=== PATIENT | female | born 1970 | race American Indian/Alaskan Native ===

== ENCOUNTER 2016-08-27 13:55 | Inpatient (IN) | payer MEDICARE, MEDICAID ==
--- NOTE | 2016-08-27 14:30 | ED PDOC ---
Lower Extremity Pain/Injury Time Seen by Provider: 08/27/16 14:09 Chief Complaint (Nursing): Lower Extremity Problem/Injury Chief Complaint (Provider): Right Calf Pain/Swelling History Per: Patient History/Exam Limitations: no limitations Onset/Duration Of Symptoms: Hrs (since this morning) Current Symptoms Are (Timing): Still Present Severity: Moderate Additional Complaint(s): Lizzeth Leo is a 46 year old female, with a past medical history inclusive of HTN, hypercholesterolemia, coagulopathy, diabetes, ESRD (on dialysis) and PVD (s/p left BKA and finger amputations x10), who presents to the ED on , as referred by her PMD, for the evaluation of moderate right calf pain/ swelling that she has experienced since this morning. Associated fever and chills also reported, both of which have been present since yesterday, though she denies chest pain or shortness of breath. PMD: Rakel Thomas Past Medical History Reviewed: Historical Data, Nursing Documentation, Vital Signs Vital Signs: Last Vital Signs Temp 103.7 F H 08/27/16 14:02 Pulse 142 H 08/27/16 14:02 Resp 16 08/27/16 14:02 BP 123/70 08/27/16 14:02 Pulse Ox 98 08/27/16 14:02 - Medical History PMH: Anemia, Diabetes, HTN, Hypercholesterolemia, End Stage Renal Disease, Chronic Kidney Disease Denies: Kidney Stones Other PMH: PVD, cataracts, osteomyelitis - Surgical History Other surgeries: left BKA, finger amputations x10, AV shunt - Family History Family History: States: Unknown Family Hx - Immunization History Hx Tetanus Toxoid Vaccination: Yes Hx Influenza Vaccination: Yes Hx Pneumococcal Vaccination: Yes - Home Medications Home Medications: Ambulatory Orders Medication Instructions Recorded Apixaban [Eliquis] 5 mg PO BID 05/21/16 Aspirin [Ecotrin] 81 mg PO DAILY 05/21/16 Atorvastatin [Lipitor] 40 mg PO HS 05/21/16 Gabapentin [Neurontin] 200 mg PO BID 05/21/16 Insulin Aspart, Recombinant 13 unit SC ACTID 05/21/16 [Novolog] Insulin Detemir [Levemir] 32 unit SC HS 05/21/16 Sevelamer Carbonate [Renvela] 2,400 mg PO TID 05/21/16 - Allergies Allergies/Adverse Reactions: Allergies Allergy/AdvReac Type Severity Reaction Status Date / Time heparin Allergy Severe ANAPHYLAXIS Verified 08/27/16 14:01 Beta-Blockers Allergy ANAPHYLAXIS Verified 08/27/16 14:01 (Beta-Adrenergic Bloc Review of Systems ROS Statement: Except As Marked, All Systems Reviewed And Found Negative Constitutional: Positive for: Fever, Chills Cardiovascular: Negative for: Chest Pain Respiratory: Negative for: Shortness of Breath Musculoskeletal: Positive for: Leg Pain (right calf pain/swelling) Physical Exam - Reviewed Nursing Documentation Reviewed: Yes Vital Signs Reviewed: Yes - Physical Exam Appears: Positive for: Non-toxic, No Acute Distress Head Exam: Positive for: ATRAUMATIC, NORMOCEPHALIC Skin: Positive for: Normal Color, Warm, Dry Eye Exam: Positive for: Normal appearance, PERRL ENT: Positive for: Normal ENT Inspection. Negative for: Pharyngeal Erythema, Tonsillar Exudate, Tonsillar Swelling Neck: Positive for: Normal, Painless ROM, Supple Cardiovascular/Chest: Positive for: Regular Rate, Rhythm. Negative for: Murmur Respiratory: Positive for: Normal Breath Sounds. Negative for: Respiratory Distress Gastrointestinal/Abdominal: Positive for: Normal Exam, Soft. Negative for: Tenderness Back: Positive for: Normal Inspection Extremity: Positive for: Calf Tenderness (right), Swelling (RLE), Other (ulcer w /eschar noted to right heel; left BKA, amputations of all fingers on b/l hands) Neurologic/Psych: Positive for: Alert, Oriented - ECG O2 Sat by Pulse Oximetry: 98 (RA) Pulse Ox Interpretation: Normal - Radiology X-Ray: Viewed By Me, Read By Radiologist X-Ray Interpretation: Other (Right-sided central venous catheter. Mild central vascular and mild pulmonary venous congestion.) Medical Decision Making Medical Decision Makin:09 Initial Impression: right calf pain/swelling; will r/o DVT Initial Plan: * Duplex LE Vein, Right * CXR * VBG Shock Panel * Labs * Udip * Blood Culture * Insertion of PICC Bundle * Morphine 2mg IM * Reevaluation 14:44 Patient is febrile with temperature of 103.7F, will order administration of Tylenol 975mg PO. 15:26 CXR report reviewed: FINDINGS: Examination limited by habitus. Right-sided central venous catheter. LUNGS: Mild central vascular mild pulmonary venous congestion. No definite pneumothorax. Please note that chest x-ray has limited sensitivity for the detection of pulmonary masses. PLEURA: No significant pleural effusion identified. No definite pneumothorax . CARDIOVASCULAR: The cardiomediastinal silhouette appears within normal limits of size. OSSEOUS STRUCTURES: No acute osseous abnormality identified. VISUALIZED UPPER ABDOMEN: Unremarkable. OTHER FINDINGS: Vascular stents. IMPRESSION: Right-sided central venous catheter. Mild central vascular and mild pulmonary venous congestion. Scribe Attestation: Documented by Mesha Salmon, acting as a scribe for Earl Rivas MD. Provider Scribe Attestation: All medical record entries made by the Scribe were at my direction and personally dictated by me. I have reviewed the chart and agree that the record accurately reflects my personal performance of the history, physical exam, medical decision making, and the department course for this patient. I have also personally directed, reviewed, and agree with the discharge instructions and disposition. Disposition - Clinical Impression Clinical Impression: Cellulitis of lower extremity, Diabetes, ESRD (end stage renal disease) - Patient ED Disposition Is Patient to be Admitted: Yes - Disposition Disposition Time: 16:42 Condition: FAIR - Pt Status Changed To: Hospital Disposition Of: Inpatient - Admit Certification Admit to Inpatient:: After my assessment, the patient will require hospitalization for at least two midnights. This is because of the severity of symptoms shown, intensity of services needed, and/or the medical risk in this patient being treated as an outpatient. - POA Present On Arrival: Pressure Ulcer (right heel)
--- NOTE | 2016-08-27 14:36 | CP.PCM.CON ---
History of Present Illness - History of Present Illness History of Present Illness: PODIATRY CONSULT NOTE FOR DR. PRUETT: 46 yo female patient seen in ED today following referral from Dr. Pruett for evaluation of new onset right calf pain and redness. Per patient she began developing pain to the right leg this morning, with associated chills and fever since yesterday. Is also complaining of lower back pain. Denies n/v/sob/cp. Says she sees Dr. Pruett weekly for the right heel ulceration. Says she takes eliquis daily. Denies any other pedal complaints at this time. PMHx: HTN, ESRD (on dialysis), coagulopathy, DM, charcot root (right) PVD ALL: heparin, beta-blockers Meds: see [facility] Surg Hx: left BKA, finger amputations x 10 Soc. Hx: denies ETOH, denies smoking, denies illicit drug use PMD: Rakel Thomas Review of Systems - Review of Systems Review of Systems: All systems reviewed and found to be negative with exception of pertinent HPI findings above Past Patient History - Past Medical History & Family History Past Medical History?: Yes - Past Social History Smoking Status: Never Smoked - CARDIAC Hx Hypercholesterolemia: Yes Hx Hypertension: Yes - PULMONARY Hx Respiratory Disorders: No - NEUROLOGICAL Hx Neurological Disorder: No - HEENT Hx HEENT Problems: Yes Hx Cataracts: Yes Other/Comment: eye disease - RENAL Hx Chronic Kidney Disease: Yes Hx Kidney Stones: No - ENDOCRINE/METABOLIC Hx Endocrine Disorders: Yes Hx Diabetes Mellitus Type 1: Yes (type I) - HEMATOLOGICAL/ONCOLOGICAL Hx Anemia: Yes - INTEGUMENTARY Hx Dermatological Problems: No - MUSCULOSKELETAL/RHEUMATOLOGICAL Hx Falls: No - GASTROINTESTINAL Hx Gastrointestinal Disorders: No Other/Comment: hx of anal fissure - GENITOURINARY/GYNECOLOGICAL Hx Genitourinary Disorders: No Other/Comment: menarchy at 14 y/o, q m x4d - PSYCHIATRIC Hx Substance Use: No - SURGICAL HISTORY Hx Surgeries: Yes (see Hx and PE) Hx Amputation: Yes Hx Arteriovenous Shunt: Yes Other/Comment: INSERTION OF DIALYSIS CATH;CATARACT-BOTH EYES;LEFT BELOW KNEE AMPUTATION;2ND TOE RIGHT FOOT AMPUTATION; RIGHT ANKLE SURGERY - ANESTHESIA Hx Anesthesia: Yes Hx Anesthesia Reactions: No Hx Malignant Hyperthermia: No Meds Allergies/Adverse Reactions: Allergies Allergy/AdvReac Type Severity Reaction Status Date / Time heparin Allergy Severe ANAPHYLAXIS Verified 08/27/16 14:01 Beta-Blockers Allergy ANAPHYLAXIS Verified 08/27/16 14:01 (Beta-Adrenergic Bloc Physical Exam - Constitutional Appears: Non-toxic, No Acute Distress - Extremities Exam Additional comments: Right lower extremity exam: VASC- DP pulse is palpable (1/4), PT pulse non-palp, skin temp runs warm to warm , capillary refill < 5 sec to digits x 5, moderate 2+ pitting edema noted to anterior aspect of leg and dorsum of foot NEURO-gross pedal sensation is diminished DERM- superficial eschar noted to plantar aspect of heel, slight serous drainage , no purulence, no probe to bone, no undermining, no malodor, no surrounding erythema ORTHO- tenderness noted to deep palpation of calf/posterior leg, patient able to flex and extend all digits, severe varus deformity of ankle noted - Neurological Exam Neurological exam: Alert, CN II-XII Intact, Oriented x3 - Psychiatric Exam Psychiatric exam: Normal Affect, Normal Mood Results - Vital Signs Recent Vital Signs: Last Vital Signs Temp 103.7 F H 08/27/16 14:02 Pulse 142 H 08/27/16 14:02 Resp 16 08/27/16 14:02 BP 123/70 08/27/16 14:02 Pulse Ox 98 08/27/16 14:33 Assessment & Plan - Assessment and Plan (Free Text) Assessment: 46 yo female patient w/ pmhx of HTN, ESRD (on dialysis), coagulopathy, DM, charcot root (right) PVD w/ right calf pain/swelling Plan: --Pt seen and evaluated in ED --Discussed plan with attending Dr. Pruett and Dr. Rivas --Chart,vitals reviewed: febrile 103.7, tachy 142 --CXR: right-sided central venous catheter. Mild central vascular and mild pulmonary venous congestion. --Venous duplex US (RLE): negative for DVT --Right foot x-ray: diffuse soft tissue swelling, severe neuropathic tiffanie changes --For PICC (poor venous access) --f/u CBC, BMP, Udip, Blood cx --ID consulted (Dr. Greenberg), f/u recs --Morphine 2mg IM STAT per ED --Tylenol for fever per ED --Pt will be admitted to hospital for IV antibiotics --Santyl ordered, will apply with AM dressing change tomorrow --Multipodus boot ordered for right foot (to wear at all times while in bed) --Podiatry will continue to monitor closely.
--- NOTE | 2016-08-27 15:28 | RAD ---
HISTORY: cough COMPARISON: Chest x-ray performed 03/26/16 TECHNIQUE: Chest, one view. FINDINGS: Examination limited by habitus. Right-sided central venous catheter. LUNGS: Mild central vascular mild pulmonary venous congestion. No definite pneumothorax. Please note that chest x-ray has limited sensitivity for the detection of pulmonary masses. PLEURA: No significant pleural effusion identified. No definite pneumothorax . CARDIOVASCULAR: The cardiomediastinal silhouette appears within normal limits of size. OSSEOUS STRUCTURES: No acute osseous abnormality identified. VISUALIZED UPPER ABDOMEN: Unremarkable. OTHER FINDINGS: Vascular stents. IMPRESSION: Right-sided central venous catheter. Mild central vascular and mild pulmonary venous congestion.
[2016-08-27] MEDS ORDERED: Lidocaine 1% Inj (20ml) ONE (16:14)
--- NOTE | 2016-08-27 16:48 | US ---
PROCEDURE: Right lower extremity duplex venous sonography. HISTORY: r/o DVT right calf pain COMPARISON: None TECHNIQUE: Real-time ultrasound scan of the veins with color flow, spectral waveform analysis and compression FINDINGS: Right lower extremity: Normal flow, augmentation and compressibility were noted. No evidence of deep vein thrombosis. Incidental finding(s): Dialysis port identified right common femoral vein without evidence of associated/acute deep vein thrombosis. Enlarged right inguinal lymph node 2.5 x 2.9 cm. IMPRESSION: Negative study right lower extremity for acute deep vein thrombosis.
--- NOTE | 2016-08-27 16:50 | RAD ---
PROCEDURE: Right Foot Radiographs. HISTORY: right heel ulcer COMPARISON: None. FINDINGS: BONES: Evidence of severe neuropathic foot/ Charcot joint. No acute fracture. JOINTS: Neuropathic joints/ Charcot deformity noted. Multiple hammertoe deformities noted. SOFT TISSUES: Diffuse soft tissue swelling. Air in soft tissues plantar aspect likely deep ulcer. The may be additional ulcers medial aspect of the foot. OTHER FINDINGS: None. IMPRESSION: Soft tissue swelling without acute articular or osseous abnormality.
--- NOTE | 2016-08-27 17:14 | PCM.SURG1 ---
Surgeon's Initial Post Op Note - Surgeon's Notes Surgeon: Umang Pompom Maker: None Type of Anesthesia: Local Pre-Operative Diagnosis: Poor IV access. Fever. Operative Findings: Multiple venous collaterals. Patent right brachial vein. Post-Operative Diagnosis: Poor IV access, Fever. Operation Performed: Right brachial vein 4F SL 30cm PICC placed with the tip in the right axillary vein. Specimen/Specimens Removed: None Estimated Blood Loss: EBL {In ML}: 5 Date of Surgery/Procedure: 08/27/16 Time of Surgery/Procedure: 17:10
[2016-08-27] MEDS ORDERED: Vancomycin 1 g Inj ONE (17:21)
[2016-08-27 17:47] LABS: VENOUS BLOOD GAS BASE EXCESS 2.4 mmol/L (0.0-2.0); VENOUS BLOOD GAS PCO2 42 mmHg (40-60); VENOUS BLOOD PH 7.42 (7.32-7.43)
[2016-08-27 18:02] LABS: BASO # 0.1 K/uL (0.0-0.2); BASO % 0.8 % (0.0-2.0); HEMATOCRIT 36.2 % (34.0-47.0); LYMPH # 0.5 K/uL (1.0-4.3); MEAN CORPUSCULAR HEMOGLOBIN 29.8 pg (27.0-31.0); MEAN CORPUSCULAR HGB CONC 31.3 g/dL (33.0-37.0); MEAN PLATELET VOLUME 10.2 fl (7.2-11.7); MONO # 0.7 K/uL (0.0-0.8); MONO % 6.3 % (0.0-10.0); NEUT # 9.7 K/uL (1.8-7.0); NEUT % 87.9 % (50.0-75.0); PLATELET COUNT 135 K/uL (130-400); RED CELL DISTRIBUTION WIDTH 20.5 % (11.5-14.5)
--- NOTE | 2016-08-27 18:39 | CP.PCM.PN ---
Subjective - Date & Time of Evaluation Date of Evaluation: 08/27/16 Time of Evaluation: 18:38 - Subjective Subjective: I D NOTE HAVE REVIEWED PREVIOUS CULTURES PATIENT WELL KNOWN TO ME STARTED ZOSYN/ZYVOX Objective - Vital Signs/Intake and Output Vital Signs (last 24 hours): Temp Pulse Resp BP Pulse Ox 100.5 F H 92 H 22 141/77 97 08/27/16 18:09 08/27/16 18:09 08/27/16 18:09 08/27/16 18:09 08/27/16 17:55 - Medications Medications: Current Medications Collagenase (Santyl) 1 applic TOP DAILY JASPER - Labs Labs: 08/27/16 17:45
[2016-08-27 18:57] LABS: ALB/GLOB RATIO 0.8 (1.0-2.1); BILIRUBIN,TOTAL 1.3 mg/dl (0.2-1.3); CALCIUM 9.2 mg/dL (8.4-10.2); TOTAL PROTEIN 8.5 G/DL (6.3-8.2)
[2016-08-27] MEDS ORDERED: Naloxone 0.4 mg/ml Inj (Adult) ONE (19:10)
[2016-08-27] MEDS ORDERED: Insulin Regular 100 units/ml ONE (19:35)
--- NOTE | 2016-08-27 19:35 | CP.PCM.HP ---
History of Present Illness - History of Present Illness History of Present Illness: 46 year old gentlewoman with a complex history was receiving wound care for a right heel ulcer when Dr. Resendez noted a fever of 102 degrees and a swollen, tender right calf. She was sent to the ER, where doppler-ultrasound ruled out deep vein thrombosis and cellulitis of the right lower leg was diagnosed. A PICC line was inserted by Dr. Heck in the right upper arm because of poor venous access. Blood cultures were obtained. A culturette swab was taken of the right heel ulcer. She received 1 gm of IV Vancomycin. Subsequently she was seen in infectious disease consultation by Dr. Levon Lemon, who ordered IV Zosyn and IV Zyvox. She was seen by the podiatry team, snd Santyl was ordered for the right heel. They will be following her in hospital. The patient has a complex past history which includes the following: End stage renal disease - on hemodialysis via a right subclavian Permacath - under the care of cray fishing hand Dr. Alta Guadarrama. 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 Because of this previous A-V fistulae have clotted resulting in loss of 3 fingers of the left hand and 1 finger of the right hand and her entire left lower leg. She has been evaluated by Dr. Evita Shepard, [employer] and is currently on Eliquis and aspirin. She may not have heparin or low-dose heparing as this actually induces clotting. Diabetes mellitus - II - insulin dependent. followed by Dr. Richard Ambrose, awning maker and installer. She has been maintained on Humalog 12 units 3x/day before meals and Levemir 35 units at bedtime. Today her glucose was around 600. She was just given 20 units of regular insulin. She tests her glucoses via her arms since fingersticks are prohibited. Hx of Anemia due to heavy menses (previously evaluated by Dr. Larry). Hx of Peripheral arterial disease secondary to hypertension, renal disease ( calcification of arteries), hyperlipidemia and coagulopathy. Beta-blockers are to be avoided. Hx of Hypertension HOME MEDICATIONS: Eliquis 5mg po bid Aspirin-EC 81mg i qd Atorvastatin 40mg i qd Gabapentin 100mg ii bid for neuropathic pain Nephrovite i qd Renagel 800g tid Humalog Quikpen 12 units subcut. tid ac Levemir 35 units subcut q hs Tyleonol-ES (500mg) ii tabs q4h prn pain (max 8 tabs per day) Docusate 100mg ii tabs bid prn [place] S 3 tabs hs prn constipation Lisinopril 5mg i daily (hold for low bp) ALLERGIES/ADVERSE REACTIONS: HEPARIN CAUSES CLOTTING. BETA-BLOCKERS CAUSE VASOCONSTRICTION DIET: 2gm sodium, 2 gm potassium renal ROS: Pain in right lower leg and back. No chest pain or dyspnea. SOCIAL: Single, no children, on disability. Lives with a family member ( nephew), but cares for herself and uses motorized wheelchair. Mother is Sandra Leo [phone] FRANCA POLK: WHEN PATIENT WAS GIVEN 2 MG OF DILAUDID IV FOR COMPLAINT OF SEVERE BACK PAIN, SHE BECAME OVERSEDATED AND BRADYPNEIC AND DROPPED HER OXYGEN SATURATION TO 64%. IV NARCAN WAS ADMINISTERED AND SHE BECAME MORE ALERT. OXYGEN BY MASK WAS STARTED AND THE OXYGEN SATURATION WENT BACK UP TO 100%. Present on Admission - Present on Admission Any Indicators Present on Admission: Yes History of DVT/PE: No History of Uncontrolled Diabetes: Yes Urinary Catheter: No - Notes: Notes:: Ulceration right heel approx 3 x 3 cm. with eschar. Review of Systems - Review of Systems All systems: reviewed and no additional remarkable complaints except - Constitutional Additional comments: back and leg pain as noted in HPI. No dyspnea or chest pain. No headache. No visual disturbance. No abdominal pain. Bowels OK. Does not make urine. Past Patient History - Past Medical History & Family History Past Medical History?: Yes - Past Social History Smoking Status: Never Smoked Alcohol: None Drugs: Denies Home Situation {Lives}: With Family Domestic Violence: Negative - CARDIAC Hx Hypercholesterolemia: Yes Hx Hypertension: Yes Hx Peripheral Vascular Disease: Yes - PULMONARY Hx Respiratory Disorders: No - NEUROLOGICAL Hx Neurological Disorder: No - HEENT Hx HEENT Problems: No - RENAL Hx Chronic Kidney Disease: Yes Hx Dialysis: Yes Type of Dialysis Access: Right subclavian Permacath. Date of Last Dialysis Treatment: 08/26/16 - ENDOCRINE/METABOLIC Hx Endocrine Disorders: Yes Hx Diabetes Mellitus Type 2: Yes - HEMATOLOGICAL/ONCOLOGICAL Hx Blood Disorders: Yes (THROMBOPHILIA - Heparin Ab's, Protein C & S deficiencies.) Hx Anemia: Yes Hx Blood Transfusions: Yes Hx Blood Transfusion Reaction: No Hx Hepatitis B: No Hx Hepatitis C: No Hx Human Immunodeficiency Virus (HIV): No - INTEGUMENTARY Hx Dermatological Problems: No - MUSCULOSKELETAL/RHEUMATOLOGICAL Hx Musculoskeletal Disorders: Yes (Charcot joint right ankle) Hx Back Pain: Yes Hx Falls: No Hx Osteomyelitis: Yes (R middle finger due to paronychial infection 2016) - GASTROINTESTINAL Hx Gastrointestinal Disorders: No Other/Comment: hx of anal fissure - GENITOURINARY/GYNECOLOGICAL Hx Genitourinary Disorders: No Other/Comment: Menorrhagia : 0 - PSYCHIATRIC Hx Substance Use: No - SURGICAL HISTORY Hx Surgeries: Yes (see Hx and PE) Hx Amputation: Yes Hx Arteriovenous Shunt: Yes (No more sites available. All previously failed.) Hx Vascular Access Device: Yes (R subclavian Permacath) Other/Comment: INSERTION OF DIALYSIS CATH;CATARACT-BOTH EYES;LEFT BELOW KNEE AMPUTATION;2ND TOE RIGHT FOOT AMPUTATION; RIGHT ANKLE SURGERY - ANESTHESIA Hx Anesthesia: Yes Hx Anesthesia Reactions: No Hx Malignant Hyperthermia: No Meds Allergies/Adverse Reactions: Allergies Allergy/AdvReac Type Severity Reaction Status Date / Time heparin Allergy Severe ANAPHYLAXIS Verified 08/27/16 14:01 Beta-Blockers Allergy ANAPHYLAXIS Verified 08/27/16 14:01 (Beta-Adrenergic Bloc Physical Exam - Constitutional Appears: Toxic - Head Exam Head Exam: NORMAL INSPECTION - ENT Exam ENT Exam: Mucous Membranes Moist, Normal Exam, Normal External Ear Exam, Normal Oropharynx, TM's Normal Bilaterally - Neck Exam Neck exam: Positive for: Full Rom, Normal Inspection Additional comments: Right subclavian Permacath intact. - Respiratory Exam Respiratory Exam: Clear to Auscultation Bilateral, NORMAL BREATHING PATTERN - Cardiovascular Exam Cardiovascular Exam: Tachycardia, REGULAR RHYTHM, +S1, +S2 - GI/Abdominal Exam GI & Abdominal Exam: Normal Bowel Sounds, Soft - Rectal Exam Rectal Exam: Deferred - Extremities Exam Additional comments: Right lower leg/calf with swelling, erythema, tenderness. Pulse present right DP. Right ankle joint with marked deformity and ligamentous laxity. Ulcer on right heel approx 3 x 3 cm., covered by eschar. S/P left BK amputation. Residual limb warm and non-tender. with no lesions. RUE - s/p amputation 3rd finger - well healed - Weak radial pulse LUE - s/p amputation of 2nd, 3rd, 4th fingers - well healed - weak radial pulse. PICC line right upper arm. - Back Exam Back exam: muscle spasm, NORMAL INSPECTION - Neurological Exam Neurological exam: Abnormal Gait, Alert, CN II-XII Intact, Oriented x3 Additional comments: Has right [id number] leg brace. Has left BK prosthesis. - Psychiatric Exam Psychiatric exam: Normal Affect, Normal Mood - Skin Additional comments: See extremities for heel ulcer. - Additional Findings Additional findings: BREASTS - No masses and no axillary nodes. Results - Vital Signs Recent Vital Signs: Last Vital Signs Temp 100.5 F H 08/27/16 18:09 Pulse 92 H 08/27/16 18:09 Resp 22 08/27/16 18:09 BP 141/77 08/27/16 18:09 Pulse Ox 97 08/27/16 17:55 - Labs Result Diagrams: 08/27/16 17:45 08/27/16 18:40 Labs: Laboratory Results - last 24 hr 08/27/16 08/27/16 08/27/16 17:40 17:45 18:40 WBC 11.0 H RBC 3.81 Hgb 11.3 L D Hct 36.2 MCV 95.0 MCH 29.8 MCHC 31.3 L RDW 20.5 H Plt Count 135 MPV 10.2 Neut % (Auto) 87.9 H Lymph % (Auto) 5.0 L [place] % (Auto) 6.3 Eos % (Auto) 0.0 Baso % (Auto) 0.8 Neut # 9.7 H Lymph # 0.5 L [place] # 0.7 Eos # 0.0 Baso # 0.1 pO2 14 L VBG pH 7.42 VBG pCO2 42 VBG HCO3 24.8 VBG Total CO2 28.5 H VBG O2 Sat (Calc) 18.0 L VBG Base Excess 2.4 H VBG Potassium 5.0 Sodium 131.0 L 135 Chloride 91.0 L 89 L Glucose 449 H* Lactate 2.8 H FiO2 21.0 Crit Value Called To Dr stewart johnson Crit Value Called By Mike Crit Value Read Back Y Blood Gas Notified Time 1746 Potassium 5.0 Carbon Dioxide 20 L Anion Gap 31 H BUN 40 H Creatinine 7.5 H* Est GFR ( Amer) 7 Est GFR (Non-Af Amer) 6 Random Glucose 595 H* D Calcium 9.2 Total Bilirubin 1.3 AST 21 ALT 9 D Alkaline Phosphatase 180 H Total Protein 8.5 H Albumin 3.7 Globulin 4.8 H Albumin/Globulin Ratio 0.8 L Venous Blood Potassium 5.0 - Imaging and Cardiology Venous US Status: Report reviewed by me Right foot Status: Report reviewed by me Assessment & Plan (1) Cellulitis of leg Assessment and Plan: Blood and right heel ulcer cultures done. Given IV Vancomycin 1 gm one dose, then started on IV Zyvox and IV Zosyn by Dr. Lemon. Status: Acute (2) DM type 2 (diabetes mellitus, type 2) Assessment and Plan: Dr. Gallito Ambrose awning maker and installer will manage this. Status: Chronic (3) Coagulopathy Assessment and Plan: Thrombophilia due to Protei C and S deficiencies and anti-heparin antibodies. Will continue Eliquis and aspirin. Heparin is contraindicated. Status: Chronic (4) ESRD (end stage renal disease) on dialysis Assessment and Plan: Management by Dr. Alta Guadarrama. Due for hemodialysis tomorrow. Renal diet 2 gm sodium and 2 gm potassium. Status: Chronic (5) HTN (hypertension) Assessment and Plan: Monitor blood pressure. Hold lisinopril for now. Status: Chronic (6) Hyperlipidemia Assessment and Plan: Continue atorvastatin. Status: Acute (7) Peripheral arterial occlusive disease Assessment and Plan: Multifactorial. Will avoid beta-blockers, keep hydrated, manage diabetes. No fingersticks. Status: Acute (8) Ulcer of right heel Assessment and Plan: To continue care under Dr. Resendez's direction. He would like to do a surgical debridement of the eschar in the OR once she is stabilized so as to allow for faster healing. Status: Acute (9) Tachycardia Assessment and Plan: Probably due to fever, stress, but will get ECG and monitor this. Status: Acute
[2016-08-27 19:36] LABS: NEUTROPHIL 83 % (42-75); TOTAL CELLS COUNTED 100
[2016-08-27] MEDS ORDERED: Insulin Regular 100 units/ml IV ONE (19:50)
[2016-08-27] MEDS: Sodium Chloride 0.9% 1,000 ML IV SCH (19:53)
[2016-08-27] MEDS ORDERED: Naloxone 0.4 mg/ml Inj (Adult) IVP ONE (19:57)
[2016-08-27] MEDS ORDERED: Insulin Detemir 100 Units/ml Inj SC SCH (22:00)
[2016-08-28] MEDS ORDERED: Docusate-Senna 50 mg-8.6 mg Tab PO PRN (00:07)
[2016-08-28] MEDS: Linezolid 600 mg in D5W 300 ml 300 ML IVPB SCH ×3 (00:17→20:48)
--- NOTE | 2016-08-28 02:37 | CON ---
DATE: 08/27/2016 ROOM: 407. HISTORY OF PRESENT ILLNESS: This is a 46-year-old female with known history of type 2 insulin-requir ing diabetes, now admitted for right leg cellulitis with underlying nonhealing right heel ulceration and is being referred now for diabetic evaluation because of marked hyperglycemic accelerations as no minal thereof. PAST MEDICAL HISTORY: As mentioned above, history of type 2 insulin-requiring diabetes on a combinat ion of Levemir given as 32 units subQ at bedtime daily with Humalog given as 30 units subQ t.i.d. bef ore meals as ordered. History of diabetic retinopathy, polyneuropathy with a right Charcot's foot wi th diabetic nephropathy with end-stage renal disease and, concurrently, dialysis dependence. History of coronary artery disease and peripheral arterial disease and vasculopathy with a previous left bel ow-knee amputation and multiple amputations in the upper extremities, three of which in the left hand and one in the right hand. She has also known history of coronary artery disease and severe periphe ral arterial disease and vasculopathy as noted. She has had multiple admissions for gangrene in both hands, especially in the distal phalanges of the left hand. 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 Gordon. FAMILY HISTORY: Positive for diabetes and hypertension. SOCIAL HISTORY: The patient has supportive family. No known substance use. REVIEW OF SYSTEMS: As mentioned above, admits to generalized body weakness with easy fatigability an d tiredness and suboptimal energy level. Also admits to dizziness and lightheadedness, worse in the last few days prior to admission. No chest pains or palpitations or PNDs. His oral intake is quite variable with nausea, dyspepsia, and vague upper abdominal pain. Also, admits to habitual constipati on. As mentioned above, admits to recent onset of tenderness and pain in the right calf area with un derlying cellulitis. PHYSICAL EXAMINATION: GENERAL: The patient is a morbidly obese female in no apparent distress. VITAL SIGNS: Blood pressure of 160/100, pulse of 80 beats per minute and regular, temperature 102, r espirations 20. Height is 5 feet 9, weight is 245 pounds. HEENT: Head normocephalic. Eyes anicteric with pink conjunctivae. Fundoscopy not possible at this time. Ears, nose and throat otherwise normal. NECK: Supple. Thyroid gland is normal size. No carotid bruits or any cervical adenopathy. CARDIOPULMONARY: Some adynamic precordium. S1, S2 is rapid and regular. LUNGS: Show scattered rhonchi. ABDOMEN: Obese, soft with positive bowel sounds. EXTREMITIES: There is erythema and tenderness in the calf area of the right leg with diminished puls es in dorsalis pedis and anterior tibial area. The left below-knee amputation stump is healed as not ed. LABORATORY DATA: WBC 11.0, hemoglobin of 11.3, hematocrit of 36, MCV 95, platelets 135, chemistries showed a BUN of 40, sodium 135, potassium 5.0, chloride 89, CO2 20, glucose 595 and creatinine 7.5. Her subsequent glucose levels were 363 mg/dL. ASSESSMENT: This is a 46-year-old female with uncontrolled and decompensated type 2 insulin-requirin g diabetes, presenting here with marked hyperglycemic accelerations and intercurrent right leg cellul itis with an underlying neuropathic heel ulceration in the same foot as noted. There are also diabet ic microvascular complications of retinopathy, polyneuropathy, and nephropathy with end-stage renal d isease and dialysis dependence. She also has diabetic macrovascular complications of coronary artery disease and peripheral arterial disease and vasculopathy. She also has had previous left below-knee amputation and currently presenting with a right leg cellulitis as noted. PLAN OF MANAGEMENT: As discussed with the patient and the staff, we will start her right away on the basal and bolus insulin regimen, which is more physiologic in terms of long-term diabetic management . We will start her with Levemir given as 24 units subQ at bedtime daily to start tonight. We will also add Humalog given as 12 units subQ t.i.d. before meals, start at breakfast time tomorrow as orde red. Will titrate incrementally as indicated to optimize metabolic control. We will also give her a low-dose correction scale actually cannot give her a low-dose correction scale because she really marks s no fingers to do the glucose monitoring. She is very high risk for gangrene of the same digits wit h underlying vasculopathy. We do plasma her chemistry determination to follow her glucose levels gloria ry few days as ordered. We will obtain thyroid studies and adjust her dose regimen accordingly. We will follow and advise accordingly. Irene Ambrose MD cc: [id number] TT: 08/28/2016 02:36:25 Confirmation # [id number] Dictation # [id number] mn
[2016-08-28 07:07] LABS: ALB/GLOB RATIO 0.8 (1.0-2.1); ALKALINE PHOSPHATASE 144 U/L (38-126); ALT/SGPT 112 U/L (9-52); AST/SGOT 309 U/L (14-36); BILIRUBIN,TOTAL 0.9 mg/dl (0.2-1.3); BLOOD UREA NITROGEN 46 mg/dl (7-17); CALCIUM 8.9 mg/dL (8.4-10.2); CARBON DIOXIDE 25 mmol/L (22-30); CHLORIDE 92 mmol/L (98-107); CHOLESTEROL 124 mg/dL (0-199); GFR AFRICAN-AMERICAN 6; PHOSPHOROUS 5.1 mg/dl (2.5-4.5); POTASSIUM 4.5 MMOL/L (3.6-5.0); SODIUM 137 mmol/l (132-148); TOTAL PROTEIN 7.5 G/DL (6.3-8.2)
[2016-08-28 07:26] LABS: GLUCOSE,RANDOM 529 mg/dL (65-105)
[2016-08-28 07:39] LABS: THYROID STIMULATING HORMONE 2.25 mIU/ML (0.46-4.68)
[2016-08-28] MEDS: Insulin Lispro (humaLOG) 100 Units/ml Inj SC SCH ×2 (08:00→11:51)
--- NOTE | 2016-08-28 08:28 | CP.PCM.CON ---
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 pericarditis) Rec: Echocardiogram Past Patient History - Past Medical History & Family History Past Medical History?: Yes - Past Social History Smoking Status: Never Smoked - CARDIAC Hx Hypercholesterolemia: Yes Hx Hypertension: Yes Hx Peripheral Vascular Disease: Yes - PULMONARY Hx Respiratory Disorders: No - NEUROLOGICAL Hx Neurological Disorder: No - HEENT Hx HEENT Problems: Yes Hx Cataracts: Yes - RENAL Hx Chronic Kidney Disease: Yes Hx Dialysis: Yes Type of Dialysis Access: Right subclavian Permacath. Date of Last Dialysis Treatment: 08/26/16 - ENDOCRINE/METABOLIC Hx Endocrine Disorders: Yes Hx Diabetes Mellitus Type 2: Yes - HEMATOLOGICAL/ONCOLOGICAL Hx Blood Disorders: Yes (THROMBOPHILIA - Heparin Ab's, Protein C & S deficiencies.) Hx AIDS: No Hx Anemia: Yes Hx Blood Transfusions: Yes Hx Blood Transfusion Reaction: No Hx Hepatitis B: No Hx Hepatitis C: No Hx Human Immunodeficiency Virus (HIV): No - INTEGUMENTARY Hx Dermatological Problems: No - MUSCULOSKELETAL/RHEUMATOLOGICAL Hx Musculoskeletal Disorders: Yes (Charcot joint right ankle) Hx Back Pain: Yes Hx Falls: No Hx Osteomyelitis: Yes (R middle finger due to paronychial infection 2016) - GASTROINTESTINAL Hx Gastrointestinal Disorders: No Other/Comment: hx of anal fissure - GENITOURINARY/GYNECOLOGICAL Hx Genitourinary Disorders: No Other/Comment: Menorrhagia - PSYCHIATRIC Hx Substance Use: No - SURGICAL HISTORY Hx Surgeries: Yes (see Hx and PE) Hx Amputation: Yes Hx Arteriovenous Shunt: Yes (No more sites available. All previously failed.) Hx Vascular Access Device: Yes (R subclavian Permacath) Other/Comment: INSERTION OF DIALYSIS CATH;CATARACT-BOTH EYES;LEFT BELOW KNEE AMPUTATION;2ND TOE RIGHT FOOT AMPUTATION; RIGHT ANKLE SURGERY - ANESTHESIA Hx Anesthesia: Yes Hx Anesthesia Reactions: No Hx Malignant Hyperthermia: No Has any member of the family had a problem w/ anesthesia?: No Meds Allergies/Adverse Reactions: Allergies Allergy/AdvReac Type Severity Reaction Status Date / Time heparin Allergy Severe ANAPHYLAXIS Verified 08/27/16 14:01 Beta-Blockers Allergy ANAPHYLAXIS Verified 08/27/16 14:01 (Beta-Adrenergic Bloc - Medications Medications: Current Medications Acetaminophen (Tylenol 325mg Tab) 650 mg PO Q4 PRN PRN Reason: Fever >100.4 F Acetaminophen (Tylenol 325mg Tab) 650 mg PO Q4 PRN PRN Reason: Pain, moderate (4-7) Apixaban (Eliquis) 5 mg PO BID [facility] PRN Reason: Protocol Aspirin (Ecotrin) 81 mg PO DAILY [facility] Atorvastatin Calcium (Lipitor) 40 mg PO DAILY [facility] Collagenase (Santyl) 1 applic TOP DAILY [facility] Docusate Sodium (Colace) 200 mg PO BID [facility] Gabapentin (Neurontin) 200 mg PO BID [facility] Hydromorphone HCl (Dilaudid) 2 mg PO Q4 PRN PRN Reason: Pain, severe (8-10) Last Admin: 08/28/16 02:55 Dose: 2 mg Piperacillin Sod/Tazobactam (Sod 2.25 gm/ Sodium Chloride) 100 mls @ 100 mls/ hr IVPB Q12 [facility] Last Admin: 08/27/16 23:02 Dose: 100 mls/hr Linezolid (Zyvox 600mg/300ml D5w) 300 mls @ 300 mls/hr IVPB Q12 [facility] Last Admin: 08/28/16 00:17 Dose: 300 mls/hr Sodium Chloride (Sodium Chloride 0.9%) 1,000 mls @ 100 mls/hr IV .Q10H [facility] Stop: 08/28/16 20:01 Last Admin: 08/27/16 19:53 Dose: 100 mls/hr Insulin Detemir (Levemir) 24 units SC [facility] Last Admin: 08/27/16 22:59 Dose: 24 units Insulin Human Lispro (Humalog) 12 units SC AC [facility] Senna/Docusate Sodium (Senokot S 50 Mg-8.6 Mg) 3 tab PO HS PRN PRN Reason: Constipation Sevelamer HCl (Renagel) 800 mg PO TID [facility] Vitamin B Complex/Vit C/Folic Acid (Nephro-Ajay) 1 tab PO DAILY [facility] Results - Vital Signs Recent Vital Signs: Last Vital Signs Temp 99 F 08/28/16 00:40 Pulse 128 H 08/28/16 01:19 Resp 20 08/28/16 01:19 BP 126/87 08/28/16 00:40 Pulse Ox 96 08/28/16 01:19 - Labs Result Diagrams: 08/27/16 17:45 08/28/16 04:45 Labs: Laboratory Results - last 24 hr 08/27/16 08/27/16 08/27/16 17:40 17:45 18:40 WBC 11.0 H RBC 3.81 Hgb 11.3 L D Hct 36.2 MCV 95.0 MCH 29.8 MCHC 31.3 L RDW 20.5 H Plt Count 135 MPV 10.2 Neut % (Auto) 87.9 H Lymph % (Auto) 5.0 L [place] % (Auto) 6.3 Eos % (Auto) 0.0 Baso % (Auto) 0.8 Neut # 9.7 H Lymph # 0.5 L [place] # 0.7 Eos # 0.0 Baso # 0.1 Neutrophils % (Manual) 83 H Band Neutrophils % 1 Lymphocytes % (Manual) 9 L Monocytes % (Manual) 7 Toxic Granulation Present Platelet Estimate Normal Hypochromasia (manual) Slight Anisocytosis (manual) Slight Tear Drop Cells Slight Ovalocytes Slight pO2 14 L VBG pH 7.42 VBG pCO2 42 VBG HCO3 24.8 VBG Total CO2 28.5 H VBG O2 Sat (Calc) 18.0 L VBG Base Excess 2.4 H VBG Potassium 5.0 Sodium 131.0 L 135 Chloride 91.0 L 89 L Glucose 449 H* Lactate 2.8 H FiO2 21.0 Crit Value Called To Dr stewart johnson Crit Value Called By Mike Crit Value Read Back Y Blood Gas Notified Time 1746 Potassium 5.0 Carbon Dioxide 20 L Anion Gap 31 H BUN 40 H Creatinine 7.5 H* Est GFR ( Amer) 7 Est GFR (Non-Af Amer) 6 POC Glucose (mg/dL) Random Glucose 595 H* D Calcium 9.2 Phosphorus Total Bilirubin 1.3 AST 21 ALT 9 D Alkaline Phosphatase 180 H Total Protein 8.5 H Albumin 3.7 Globulin 4.8 H Albumin/Globulin Ratio 0.8 L Triglycerides Cholesterol LDL Cholesterol Direct HDL Cholesterol TSH 3rd Generation Venous Blood Potassium 5.0 08/27/16 08/28/16 08/28/16 21:55 04:45 06:08 WBC RBC Hgb Hct MCV MCH MCHC RDW Plt Count MPV Neut % (Auto) Lymph % (Auto) [place] % (Auto) Eos % (Auto) Baso % (Auto) Neut # Lymph # [place] # Eos # Baso # Neutrophils % (Manual) Band Neutrophils % Lymphocytes % (Manual) Monocytes % (Manual) Toxic Granulation Platelet Estimate Hypochromasia (manual) Anisocytosis (manual) Tear Drop Cells Ovalocytes pO2 VBG pH VBG pCO2 VBG HCO3 VBG Total CO2 VBG O2 Sat (Calc) VBG Base Excess VBG Potassium Sodium 137 Chloride 92 L Glucose Lactate FiO2 Crit Value Called To Crit Value Called By Crit Value Read Back Blood Gas Notified Time Potassium 4.5 Carbon Dioxide 25 Anion Gap 25 H BUN 46 H Creatinine 8.8 H* Est GFR ( Amer) 6 Est GFR (Non-Af Amer) 5 POC Glucose (mg/dL) 363 H 455 H* Random Glucose 529 H* Calcium 8.9 Phosphorus 5.1 H Total Bilirubin 0.9 AST 309 H D ALT 112 H D Alkaline Phosphatase 144 H Total Protein 7.5 Albumin 3.3 L Globulin 4.2 H Albumin/Globulin Ratio 0.8 L Triglycerides 163 H D Cholesterol 124 LDL Cholesterol Direct < 30 HDL Cholesterol 26 L TSH 3rd Generation 2.25 Venous Blood Potassium
[2016-08-28] MEDS: Multivitamin Vitamin B Complex (Nephro-Vite) Tab PO SCH (08:41)
--- NOTE | 2016-08-28 09:23 | CON ---
DATE: 08/28/2016 She is hospitalized under Dr. Thomas's care. 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 The patient has a long history of insulin-dependent diabetes, and has been on hemodialysis, has lost 3 fingers on her left hand and 1 finger of her right hand , as well as left lower extremity toe amputation following heparin-induced coagulopathy with severe ischemia of extremities. She has had multiple dialysis shunt failures, and at this juncture has a right internal jugular dialysis catheter in place with a PICC line in the right upper extremity for long-term antibiotic infusion. She has never been a smoker. Has never suffered a myocardial infarction or congestive cardiac failure. An echocardiogram in 02/2016 had shown preserved left ventricular systolic function with a depressed diastolic compliance. She has a history of radially developing hypotension during dialysis, and her systolic blood pressure appears to be extremely sensitive to volume changes which occur during hemodialysis. This consultation was requested because of an abnormal blood pressure reading. At the time of this examination, the patient was lying comfortably in bed, alert , awake, and oriented; was able to converse with me readily. Complains of back pain from lying in the same position for a long period of time. Is mildly febrile with a temperature of 99 degrees Fahrenheit at this point. Telemetry shows a sinus tachycardia in the range of 100-110, to 115 beats per minute sinus rhythm with rare premature ventricular beats. There were no ectopic rhythms. Blood pressure in the left upper extremity was 110/80 mmHg. Her jugular venous pressure could not be adequately examined because of a very short thick neck. There was amputation of left lower extremity. The right lower extremity had an ulcer on the heel. An ultrasound of the right lower extremity ruled out evidence of DVT. The apex was not palpable. The 1st and 2nd heart sounds were distant. There was no murmur or gallop. There were no rales. Her electrocardiogram showed sinus tachycardia with ST depression in lead 1 and aVL, with ST elevation in leads 3 and aVF which was concave upwards, suggestive of possible pericarditis. There was also ST depression in leads V2, V3, and V4. There was poor R-wave progression in V2-V3, probably secondary to placement of the chest leads. These findings were reviewed against the electrocardiograms of 05/2016 and 02/2016. The echocardiogram of 02/2016 was technically difficult, and the quality of the images was poor, but LV systolic function appeared to be preserved with a depressed diastolic compliance. There was no significant valvulopathy. Review of her labs during this hospitalization shows a hemoglobin and hematocrit of 11.3 g and 36.2%, respectively. Her MCV was normal. Her WBC count was 11,000, of which almost 88% were neutrophils. Platelet count was 135, 000. Her BUN and creatinine were 46 and 8.8 mg%. She is due for dialysis today. Her potassium was normal. Her AST and an ALT show an abrupt rise is from yesterday. Review of her earlier AST and ALT levels indicate that this is the 1st time such an abrupt change has occurred. She does not show a chronic elevation of liver enzymes. Her lipid profile was noted. 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 Chronic renal failure with chronic hemodialysis, insulin-dependent diabetes. Her hemodynamics appears to be volume dependent because of left ventricular diastolic dysfunction, and has a tendency to develop hypotension during hemodialysis because of significant changes in her intravascular volume, which are common during hemodialysis. The abnormalities of her electrocardiogram would be further evaluated with an echocardiogram to rule out evidence of pericardial fluid, which could be due to chronic renal failure. At this juncture, she is hemodynamically stable. Jim Shepard MD cc: [id number] TT: 08/28/2016 09:23:05 Confirmation # [id number] Dictation # [id number] [place]
[2016-08-28] MEDS: Santyl Collagenase OINTMENT TOP SCH (09:27)
--- NOTE | 2016-08-28 10:03 | CP.PCM.PN ---
Subjective - Date & Time of Evaluation Date of Evaluation: 08/28/16 Time of Evaluation: 07:50 - Subjective Subjective: Podiatry Progress Note for Dr. Pruett: 46 yo female w/ pmhx HTN, ESRD, coagulopathy, DM, PVD seen at the bedside in telemetry this morning for f/u of right heel ulceration & calf pain/redness. Pt seen resting comfortably in bed at time of visit. Per patient she says that she still has chills and fevers, also says that she had breakfast this morning and was unable to tolerate and subsequently vomitted, was given medication for nausea which she says helped. Says she still has some right calf pain and lower back pain today, but does say the pain medication is helping. Denies any pain or discomfort to the right foot today. Denies sob or cp. Objective - Vital Signs/Intake and Output Vital Signs (last 24 hours): Temp Pulse Resp BP Pulse Ox 97.7 F 104 H 18 125/51 L 95 08/28/16 08:28 08/28/16 08:28 08/28/16 08:28 08/28/16 08:28 08/28/16 08:28 - Medications Medications: Current Medications Acetaminophen (Tylenol 325mg Tab) 650 mg PO Q4 PRN PRN Reason: Fever >100.4 F Acetaminophen (Tylenol 325mg Tab) 650 mg PO Q4 PRN PRN Reason: Pain, moderate (4-7) Apixaban (Eliquis) 5 mg PO BID [facility] PRN Reason: Protocol Aspirin (Ecotrin) 81 mg PO DAILY [facility] Last Admin: 08/28/16 08:41 Dose: 81 mg Atorvastatin Calcium (Lipitor) 40 mg PO DAILY [facility] Last Admin: 08/28/16 08:41 Dose: 40 mg Collagenase (Santyl) 1 applic TOP DAILY [facility] Last Admin: 08/28/16 09:27 Dose: 1 applic Docusate Sodium (Colace) 200 mg PO BID [facility] Last Admin: 08/28/16 08:40 Dose: 200 mg Gabapentin (Neurontin) 200 mg PO BID [facility] Last Admin: 08/28/16 08:41 Dose: 200 mg Hydromorphone HCl (Dilaudid) 2 mg PO Q4 PRN PRN Reason: Pain, severe (8-10) Last Admin: 08/28/16 08:33 Dose: 2 mg Piperacillin Sod/Tazobactam (Sod 2.25 gm/ Sodium Chloride) 100 mls @ 100 mls/ hr IVPB Q12 [facility] Last Admin: 08/28/16 09:26 Dose: 100 mls/hr Linezolid (Zyvox 600mg/300ml D5w) 300 mls @ 300 mls/hr IVPB Q12 [facility] Last Admin: 08/28/16 00:17 Dose: 300 mls/hr Sodium Chloride (Sodium Chloride 0.9%) 1,000 mls @ 100 mls/hr IV .Q10H [facility] Stop: 08/28/16 20:01 Last Admin: 08/27/16 19:53 Dose: 100 mls/hr Insulin Detemir (Levemir) 24 units SC HS [facility] Last Admin: 08/27/16 22:59 Dose: 24 units Insulin Human Lispro (Humalog) 12 units SC AC [facility] Last Admin: 08/28/16 08:00 Dose: 12 units Senna/Docusate Sodium (Senokot S 50 Mg-8.6 Mg) 3 tab PO HS PRN PRN Reason: Constipation Sevelamer HCl (Renagel) 800 mg PO TID [facility] Last Admin: 08/28/16 08:41 Dose: 800 mg Vitamin B Complex/Vit C/Folic Acid (Nephro-Ajay) 1 tab PO DAILY [facility] Last Admin: 08/28/16 08:41 Dose: 1 tab - Labs Labs: 08/27/16 17:45 08/28/16 04:45 - Constitutional Appears: Non-toxic, No Acute Distress - Extremities Exam Extremities Exam: absent: Calf Tenderness Additional comments: Right lower extremity exam: VASC- DP pulse is palpable (1/4), PT pulse non-palp, skin temp runs warm to warm , capillary refill < 5 sec to digits x 5, moderate 2+ pitting edema noted to anterior aspect of leg and dorsum of foot NEURO-gross pedal sensation is diminished DERM- superficial eschar noted to plantar aspect of heel, slight serous drainage , no purulence, no probe to bone, no undermining, no malodor, no surrounding erythema ORTHO- slight tenderness noted to deep palpation of calf/posterior leg, patient able to flex and extend all digits, severe varus deformity of ankle noted - Neurological Exam Neurological Exam: Alert, Awake, Oriented x3 - Psychiatric Exam Psychiatric exam: Normal Affect, Normal Mood Assessment and Plan - Assessment and Plan (Free Text) Assessment: 46 yo female patient w/ pmhx of HTN, ESRD (on dialysis), coagulopathy, DM, charcot right foot PVD admitted for sepsis, right heel ulceration, red/swollen/ painful right calf. Plan: --Pt seen and evaluated in ED --Discussed plan with attending Dr. Pruett --Chart,vitals reviewed: Tmax overnight 99.9, currently afebrile, tachy at 104, wbc 11.0 --Venous duplex US (RLE): negative for DVT --Right foot x-ray: diffuse soft tissue swelling, severe neuropathic tiffanie changes --s/p PICC line placement yesterday --f/u blood cx --IV abx per ID Dr. Greenberg, receicing zosyn 2.25 q12, Linezolid 600 mg q12 --Pain meds per primary (dilaudid) --On eliquis 5 mg po bid --Tylenol for fever --Right heel ulceration cleansed with sterile saline, santyl applied and wound dressed with damp 4x4 gauze, ABD, arturo. --Multipodus boot ordered: d/w patient and nurse to apply to heel and wear at all times in bed --Podiatry will continue to monitor closely.
[2016-08-28] MEDS ORDERED: Insulin Detemir 100 Units/ml Inj SC SCH (10:23)
--- NOTE | 2016-08-28 10:50 | CP.PCM.CON ---
History of Present Illness - History of Present Illness History of Present Illness: Patient is a 46 years old known to me with end stage renal disease on maintenance hemodialysis Friday. She has dialysis catheter in the right subclavian. And she is exhausted every AV fistula has been put in the past which failed. Patient has very complicated past medical history and surgical history. She was seen by the podiatry yesterday and the office and noted in the right calf area swollen and red and tender and fever for which she was sent to the emergency room and Doppler was done which was negative for deep vein thrombosis patient diagnosed to have acute cellulitis and admitted for further evaluation. And started on intravenous antibiotics as noted. Also patient has ulcer in the right heel area where she has been follow-up by podiatry Past medical surgical history as follow in addition to the end stage renal disease on maintenance hemodialysis. Numerous of admission related to osteomyelitis infection failure of AV access and multiple surgery. 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 Patient also has secondary hyperparathyroidism and diffuse atherosclerotic disease. Diabetes mellitus type 2 S/P left BK amputation. RUE - s/p amputation 3rd finger - well healed - Weak radial pulse LUE - s/p amputation of 2nd, 3rd, 4th fingers - well healed - Review of Systems - Constitutional Constitutional: As Per HPI, Fatigue, Fever - EENT Eyes: As Per HPI Nose/Mouth/Throat: absent: Nasal Congestion - Cardiovascular Cardiovascular: absent: Chest Pain, Dyspnea - Respiratory Respiratory: absent: Cough, Hemoptysis - Gastrointestinal Gastrointestinal: absent: Abdominal Pain, Bloating, Coffee Ground Emesis, Nausea - Genitourinary Genitourinary: Nocturia - Musculoskeletal Musculoskeletal: Muscle Weakness - Neurological Neurological: As Per HPI, Abnormal Gait Past Patient History - Past Medical History & Family History Past Medical History?: Yes - Past Social History Smoking Status: Never Smoked - CARDIAC Hx Hypercholesterolemia: Yes Hx Hypertension: Yes Hx Peripheral Vascular Disease: Yes - PULMONARY Hx Respiratory Disorders: No - NEUROLOGICAL Hx Neurological Disorder: No - HEENT Hx HEENT Problems: Yes Hx Cataracts: Yes - RENAL Hx Chronic Kidney Disease: Yes Hx Dialysis: Yes Type of Dialysis Access: Right subclavian Permacath. Date of Last Dialysis Treatment: 08/26/16 - ENDOCRINE/METABOLIC Hx Endocrine Disorders: Yes Hx Diabetes Mellitus Type 2: Yes - HEMATOLOGICAL/ONCOLOGICAL Hx Blood Disorders: Yes (THROMBOPHILIA - Heparin Ab's, Protein C & S deficiencies.) Hx AIDS: No Hx Anemia: Yes Hx Blood Transfusions: Yes Hx Blood Transfusion Reaction: No Hx Hepatitis B: No Hx Hepatitis C: No Hx Human Immunodeficiency Virus (HIV): No - INTEGUMENTARY Hx Dermatological Problems: No - MUSCULOSKELETAL/RHEUMATOLOGICAL Hx Musculoskeletal Disorders: Yes (Charcot joint right ankle) Hx Back Pain: Yes Hx Falls: No Hx Osteomyelitis: Yes (R middle finger due to paronychial infection 2016) - GASTROINTESTINAL Hx Gastrointestinal Disorders: No Other/Comment: hx of anal fissure - GENITOURINARY/GYNECOLOGICAL Hx Genitourinary Disorders: No Other/Comment: Menorrhagia - PSYCHIATRIC Hx Substance Use: No - SURGICAL HISTORY Hx Surgeries: Yes (see Hx and PE) Hx Amputation: Yes Hx Arteriovenous Shunt: Yes (No more sites available. All previously failed.) Hx Vascular Access Device: Yes (R subclavian Permacath) Other/Comment: INSERTION OF DIALYSIS CATH;CATARACT-BOTH EYES;LEFT BELOW KNEE AMPUTATION;2ND TOE RIGHT FOOT AMPUTATION; RIGHT ANKLE SURGERY - ANESTHESIA Hx Anesthesia: Yes Hx Anesthesia Reactions: No Hx Malignant Hyperthermia: No Has any member of the family had a problem w/ anesthesia?: No Meds Allergies/Adverse Reactions: Allergies Allergy/AdvReac Type Severity Reaction Status Date / Time heparin Allergy Severe ANAPHYLAXIS Verified 08/27/16 14:01 Beta-Blockers Allergy ANAPHYLAXIS Verified 08/27/16 14:01 (Beta-Adrenergic Bloc - Medications Medications: Current Medications Acetaminophen (Tylenol 325mg Tab) 650 mg PO Q4 PRN PRN Reason: Fever >100.4 F Acetaminophen (Tylenol 325mg Tab) 650 mg PO Q4 PRN PRN Reason: Pain, moderate (4-7) Apixaban (Eliquis) 5 mg PO BID [facility] PRN Reason: Protocol Aspirin (Ecotrin) 81 mg PO DAILY [facility] Last Admin: 08/28/16 08:41 Dose: 81 mg Atorvastatin Calcium (Lipitor) 40 mg PO DAILY [facility] Last Admin: 08/28/16 08:41 Dose: 40 mg Collagenase (Santyl) 1 applic TOP DAILY [facility] Last Admin: 08/28/16 09:27 Dose: 1 applic Docusate Sodium (Colace) 200 mg PO BID [facility] Last Admin: 08/28/16 08:40 Dose: 200 mg Gabapentin (Neurontin) 200 mg PO BID [facility] Last Admin: 08/28/16 08:41 Dose: 200 mg Hydromorphone HCl (Dilaudid) 2 mg PO Q4 PRN PRN Reason: Pain, severe (8-10) Last Admin: 08/28/16 08:33 Dose: 2 mg Piperacillin Sod/Tazobactam (Sod 2.25 gm/ Sodium Chloride) 100 mls @ 100 mls/ hr IVPB Q12 [facility] Last Admin: 08/28/16 09:26 Dose: 100 mls/hr Linezolid (Zyvox 600mg/300ml D5w) 300 mls @ 300 mls/hr IVPB Q12 [facility] Last Admin: 08/28/16 00:17 Dose: 300 mls/hr Sodium Chloride (Sodium Chloride 0.9%) 1,000 mls @ 100 mls/hr IV .Q10H [facility] Stop: 08/28/16 20:01 Last Admin: 08/27/16 19:53 Dose: 100 mls/hr Insulin Detemir (Levemir) 30 units SC HS [facility] Insulin Human Lispro (Humalog) 12 units SC AC [facility] Last Admin: 08/28/16 08:00 Dose: 12 units Senna/Docusate Sodium (Senokot S 50 Mg-8.6 Mg) 3 tab PO HS PRN PRN Reason: Constipation Sevelamer HCl (Renagel) 800 mg PO TID [facility] Last Admin: 08/28/16 08:41 Dose: 800 mg Vitamin B Complex/Vit C/Folic Acid (Nephro-Ajay) 1 tab PO DAILY [facility] Last Admin: 08/28/16 08:41 Dose: 1 tab Physical Exam - Constitutional Appears: No Acute Distress - ENT Exam ENT Exam: Mucous Membranes Moist - Respiratory Exam Respiratory Exam: absent: Chest Wall Tenderness, Rales, Respiratory Distress - Cardiovascular Exam Cardiovascular Exam: absent: JVD, Rubs - GI/Abdominal Exam GI & Abdominal Exam: Normal Bowel Sounds - Extremities Exam Extremities exam: Positive for: calf tenderness, tenderness Additional comments: on the right - Back Exam Back exam: absent: CVA tenderness (L), CVA tenderness (R) Results - Vital Signs Recent Vital Signs: Last Vital Signs Temp 97.7 F 08/28/16 08:28 Pulse 104 H 08/28/16 08:28 Resp 18 08/28/16 08:28 BP 125/51 L 08/28/16 08:28 Pulse Ox 95 08/28/16 08:28 - Labs Result Diagrams: 08/27/16 17:45 08/28/16 04:45 Labs: Laboratory Results - last 24 hr 08/27/16 08/27/16 08/27/16 17:40 17:45 18:40 WBC 11.0 H RBC 3.81 Hgb 11.3 L D Hct 36.2 MCV 95.0 MCH 29.8 MCHC 31.3 L RDW 20.5 H Plt Count 135 MPV 10.2 Neut % (Auto) 87.9 H Lymph % (Auto) 5.0 L [place] % (Auto) 6.3 Eos % (Auto) 0.0 Baso % (Auto) 0.8 Neut # 9.7 H Lymph # 0.5 L [place] # 0.7 Eos # 0.0 Baso # 0.1 Neutrophils % (Manual) 83 H Band Neutrophils % 1 Lymphocytes % (Manual) 9 L Monocytes % (Manual) 7 Toxic Granulation Present Platelet Estimate Normal Hypochromasia (manual) Slight Anisocytosis (manual) Slight Tear Drop Cells Slight Ovalocytes Slight pO2 14 L VBG pH 7.42 VBG pCO2 42 VBG HCO3 24.8 VBG Total CO2 28.5 H VBG O2 Sat (Calc) 18.0 L VBG Base Excess 2.4 H VBG Potassium 5.0 Sodium 131.0 L 135 Chloride 91.0 L 89 L Glucose 449 H* Lactate 2.8 H FiO2 21.0 Crit Value Called To Dr stewart johnson Crit Value Called By Mike Crit Value Read Back Y Blood Gas Notified Time 1743 Potassium 5.0 Carbon Dioxide 20 L Anion Gap 31 H BUN 40 H Creatinine 7.5 H* Est GFR ( Amer) 7 Est GFR (Non-Af Amer) 6 POC Glucose (mg/dL) Random Glucose 595 H* D Calcium 9.2 Phosphorus Total Bilirubin 1.3 AST 21 ALT 9 D Alkaline Phosphatase 180 H Total Protein 8.5 H Albumin 3.7 Globulin 4.8 H Albumin/Globulin Ratio 0.8 L Triglycerides Cholesterol LDL Cholesterol Direct HDL Cholesterol TSH 3rd Generation Venous Blood Potassium 5.0 08/27/16 08/28/16 08/28/16 21:55 04:45 06:08 WBC RBC Hgb Hct MCV MCH MCHC RDW Plt Count MPV Neut % (Auto) Lymph % (Auto) [place] % (Auto) Eos % (Auto) Baso % (Auto) Neut # Lymph # [place] # Eos # Baso # Neutrophils % (Manual) Band Neutrophils % Lymphocytes % (Manual) Monocytes % (Manual) Toxic Granulation Platelet Estimate Hypochromasia (manual) Anisocytosis (manual) Tear Drop Cells Ovalocytes pO2 VBG pH VBG pCO2 VBG HCO3 VBG Total CO2 VBG O2 Sat (Calc) VBG Base Excess VBG Potassium Sodium 137 Chloride 92 L Glucose Lactate FiO2 Crit Value Called To Crit Value Called By Crit Value Read Back Blood Gas Notified Time Potassium 4.5 Carbon Dioxide 25 Anion Gap 25 H BUN 46 H Creatinine 8.8 H* Est GFR ( Amer) 6 Est GFR (Non-Af Amer) 5 POC Glucose (mg/dL) 363 H 455 H* Random Glucose 529 H* Calcium 8.9 Phosphorus 5.1 H Total Bilirubin 0.9 AST 309 H D ALT 112 H D Alkaline Phosphatase 144 H Total Protein 7.5 Albumin 3.3 L Globulin 4.2 H Albumin/Globulin Ratio 0.8 L Triglycerides 163 H D Cholesterol 124 LDL Cholesterol Direct < 30 HDL Cholesterol 26 L TSH 3rd Generation 2.25 Venous Blood Potassium Assessment & Plan (1) Cellulitis of leg Status: Acute (2) ESRD (end stage renal disease) Assessment and Plan: Patient with end stage renal disease on maintenance hemodialysis Friday scheduled to have dialysis today and arrangement has been done. She is admitted with cellulitis of the right leg started on IV antibiotics we will continue vancomycin perhaps 750 mg after each hemodialysis if okay with infectious disease. Patient has multitude of surgical history as noted above in my note Patient has hyperphosphatemia as outpatient also secondary hyperparathyroidism we will increase Renvela and perhaps is started on Sensipar I will recheck PTH as outpatient as well. Status: Acute
--- NOTE | 2016-08-28 11:28 | CARD ---
APPROVED REPORT EKG Measurement Heart [id number] <Conclusion> Sinus tachycardia Low voltage QRS Cannot rule out Anterior infarct, age undetermined Abnormal ECG
--- NOTE | 2016-08-28 14:00 | CP.PCM.CON ---
Past Patient History - Past Medical History & Family History Past Medical History?: Yes - Past Social History Smoking Status: Never Smoked - CARDIAC Hx Hypercholesterolemia: Yes Hx Hypertension: Yes Hx Peripheral Vascular Disease: Yes - PULMONARY Hx Respiratory Disorders: No - NEUROLOGICAL Hx Neurological Disorder: No - HEENT Hx HEENT Problems: Yes Hx Cataracts: Yes - RENAL Hx Chronic Kidney Disease: Yes Hx Dialysis: Yes Type of Dialysis Access: Right subclavian Permacath. Date of Last Dialysis Treatment: 08/26/16 - ENDOCRINE/METABOLIC Hx Endocrine Disorders: Yes Hx Diabetes Mellitus Type 2: Yes - HEMATOLOGICAL/ONCOLOGICAL Hx Blood Disorders: Yes (THROMBOPHILIA - Heparin Ab's, Protein C & S deficiencies.) Hx AIDS: No Hx Anemia: Yes Hx Blood Transfusions: Yes Hx Blood Transfusion Reaction: No Hx Hepatitis B: No Hx Hepatitis C: No Hx Human Immunodeficiency Virus (HIV): No - INTEGUMENTARY Hx Dermatological Problems: No - MUSCULOSKELETAL/RHEUMATOLOGICAL Hx Musculoskeletal Disorders: Yes (Charcot joint right ankle) Hx Back Pain: Yes Hx Falls: No Hx Osteomyelitis: Yes (R middle finger due to paronychial infection 2016) - GASTROINTESTINAL Hx Gastrointestinal Disorders: No Other/Comment: hx of anal fissure - GENITOURINARY/GYNECOLOGICAL Hx Genitourinary Disorders: No Other/Comment: Menorrhagia - PSYCHIATRIC Hx Substance Use: No - SURGICAL HISTORY Hx Surgeries: Yes (see Hx and PE) Hx Amputation: Yes Hx Arteriovenous Shunt: Yes (No more sites available. All previously failed.) Hx Vascular Access Device: Yes (R subclavian Permacath) Other/Comment: INSERTION OF DIALYSIS CATH;CATARACT-BOTH EYES;LEFT BELOW KNEE AMPUTATION;2ND TOE RIGHT FOOT AMPUTATION; RIGHT ANKLE SURGERY - ANESTHESIA Hx Anesthesia: Yes Hx Anesthesia Reactions: No Hx Malignant Hyperthermia: No Has any member of the family had a problem w/ anesthesia?: No Meds Allergies/Adverse Reactions: Allergies Allergy/AdvReac Type Severity Reaction Status Date / Time heparin Allergy Severe ANAPHYLAXIS Verified 08/27/16 14:01 Beta-Blockers Allergy ANAPHYLAXIS Verified 08/27/16 14:01 (Beta-Adrenergic Bloc - Medications Medications: Current Medications Acetaminophen (Tylenol 325mg Tab) 650 mg PO Q4 PRN PRN Reason: Fever >100.4 F Acetaminophen (Tylenol 325mg Tab) 650 mg PO Q4 PRN PRN Reason: Pain, moderate (4-7) Apixaban (Eliquis) 5 mg PO BID [facility] PRN Reason: Protocol Last Admin: 08/28/16 11:48 Dose: 5 mg Aspirin (Ecotrin) 81 mg PO DAILY [facility] Last Admin: 08/28/16 08:41 Dose: 81 mg Atorvastatin Calcium (Lipitor) 40 mg PO DAILY [facility] Last Admin: 08/28/16 08:41 Dose: 40 mg Cinacalcet (Sensipar) 30 mg PO DAILY [facility] Last Admin: 08/28/16 13:12 Dose: 30 mg Collagenase (Santyl) 1 applic TOP DAILY [facility] Last Admin: 08/28/16 09:27 Dose: 1 applic Docusate Sodium (Colace) 200 mg PO BID [facility] Last Admin: 08/28/16 08:40 Dose: 200 mg Gabapentin (Neurontin) 200 mg PO BID [facility] Last Admin: 08/28/16 08:41 Dose: 200 mg Hydromorphone HCl (Dilaudid) 2 mg PO Q4 PRN PRN Reason: Pain, severe (8-10) Last Admin: 08/28/16 08:33 Dose: 2 mg Piperacillin Sod/Tazobactam (Sod 2.25 gm/ Sodium Chloride) 100 mls @ 100 mls/ hr IVPB Q12 [facility] Last Admin: 08/28/16 09:26 Dose: 100 mls/hr Linezolid (Zyvox 600mg/300ml D5w) 300 mls @ 300 mls/hr IVPB Q12 [facility] Last Admin: 08/28/16 10:30 Dose: 300 mls/hr Sodium Chloride (Sodium Chloride 0.9%) 1,000 mls @ 100 mls/hr IV .Q10H [facility] Stop: 08/28/16 20:01 Last Admin: 08/27/16 19:53 Dose: 100 mls/hr Insulin Detemir (Levemir) 30 units SC HS [facility] Insulin Human Lispro (Humalog) 12 units SC AC [facility] Last Admin: 08/28/16 11:51 Dose: 12 units Senna/Docusate Sodium (Senokot S 50 Mg-8.6 Mg) 3 tab PO HS PRN PRN Reason: Constipation Sevelamer HCl (Renagel) 1,600 mg PO TID [facility] Last Admin: 08/28/16 13:12 Dose: 1,600 mg Vitamin B Complex/Vit C/Folic Acid (Nephro-Ajay) 1 tab PO DAILY [facility] Last Admin: 08/28/16 08:41 Dose: 1 tab Results - Vital Signs Recent Vital Signs: Last Vital Signs Temp 97.7 F 08/28/16 08:28 Pulse 104 H 08/28/16 09:00 Resp 18 08/28/16 08:28 BP 125/51 L 08/28/16 08:28 Pulse Ox 95 08/28/16 08:28 - Labs Result Diagrams: 08/27/16 17:45 08/28/16 04:45 Labs: Laboratory Results - last 24 hr 08/27/16 08/27/16 08/27/16 17:40 17:45 18:40 WBC 11.0 H RBC 3.81 Hgb 11.3 L D Hct 36.2 MCV 95.0 MCH 29.8 MCHC 31.3 L RDW 20.5 H Plt Count 135 MPV 10.2 Neut % (Auto) 87.9 H Lymph % (Auto) 5.0 L [place] % (Auto) 6.3 Eos % (Auto) 0.0 Baso % (Auto) 0.8 Neut # 9.7 H Lymph # 0.5 L [place] # 0.7 Eos # 0.0 Baso # 0.1 Neutrophils % (Manual) 83 H Band Neutrophils % 1 Lymphocytes % (Manual) 9 L Monocytes % (Manual) 7 Toxic Granulation Present Platelet Estimate Normal Hypochromasia (manual) Slight Anisocytosis (manual) Slight Tear Drop Cells Slight Ovalocytes Slight pO2 14 L VBG pH 7.42 VBG pCO2 42 VBG HCO3 24.8 VBG Total CO2 28.5 H VBG O2 Sat (Calc) 18.0 L VBG Base Excess 2.4 H VBG Potassium 5.0 Sodium 131.0 L 135 Chloride 91.0 L 89 L Glucose 449 H* Lactate 2.8 H FiO2 21.0 Crit Value Called To Dr stewart johnson Crit Value Called By Mike Crit Value Read Back Y Blood Gas Notified Time 1745 Potassium 5.0 Carbon Dioxide 20 L Anion Gap 31 H BUN 40 H Creatinine 7.5 H* Est GFR ( Amer) 7 Est GFR (Non-Af Amer) 6 POC Glucose (mg/dL) Random Glucose 595 H* D Hemoglobin A1c Calcium 9.2 Phosphorus Total Bilirubin 1.3 AST 21 ALT 9 D Alkaline Phosphatase 180 H Total Protein 8.5 H Albumin 3.7 Globulin 4.8 H Albumin/Globulin Ratio 0.8 L Triglycerides Cholesterol LDL Cholesterol Direct HDL Cholesterol TSH 3rd Generation Venous Blood Potassium 5.0 08/27/16 08/28/16 08/28/16 21:55 04:45 06:08 WBC RBC Hgb Hct MCV MCH MCHC RDW Plt Count MPV Neut % (Auto) Lymph % (Auto) [place] % (Auto) Eos % (Auto) Baso % (Auto) Neut # Lymph # [place] # Eos # Baso # Neutrophils % (Manual) Band Neutrophils % Lymphocytes % (Manual) Monocytes % (Manual) Toxic Granulation Platelet Estimate Hypochromasia (manual) Anisocytosis (manual) Tear Drop Cells Ovalocytes pO2 VBG pH VBG pCO2 VBG HCO3 VBG Total CO2 VBG O2 Sat (Calc) VBG Base Excess VBG Potassium Sodium 137 Chloride 92 L Glucose Lactate FiO2 Crit Value Called To Crit Value Called By Crit Value Read Back Blood Gas Notified Time Potassium 4.5 Carbon Dioxide 25 Anion Gap 25 H BUN 46 H Creatinine 8.8 H* Est GFR ( Amer) 6 Est GFR (Non-Af Amer) 5 POC Glucose (mg/dL) 363 H 455 H* Random Glucose 529 H* Hemoglobin A1c 11.0 H D Calcium 8.9 Phosphorus 5.1 H Total Bilirubin 0.9 AST 309 H D ALT 112 H D Alkaline Phosphatase 144 H Total Protein 7.5 Albumin 3.3 L Globulin 4.2 H Albumin/Globulin Ratio 0.8 L Triglycerides 163 H D Cholesterol 124 LDL Cholesterol Direct < 30 HDL Cholesterol 26 L TSH 3rd Generation 2.25 Venous Blood Potassium 08/28/16 11:50 WBC RBC Hgb Hct MCV MCH MCHC RDW Plt Count MPV Neut % (Auto) Lymph % (Auto) [place] % (Auto) Eos % (Auto) Baso % (Auto) Neut # Lymph # [place] # Eos # Baso # Neutrophils % (Manual) Band Neutrophils % Lymphocytes % (Manual) Monocytes % (Manual) Toxic Granulation Platelet Estimate Hypochromasia (manual) Anisocytosis (manual) Tear Drop Cells Ovalocytes pO2 VBG pH VBG pCO2 VBG HCO3 VBG Total CO2 VBG O2 Sat (Calc) VBG Base Excess VBG Potassium Sodium Chloride Glucose Lactate FiO2 Crit Value Called To Crit Value Called By Crit Value Read Back Blood Gas Notified Time Potassium Carbon Dioxide Anion Gap BUN Creatinine Est GFR ( Amer) Est GFR (Non-Af Amer) POC Glucose (mg/dL) 228 H Random Glucose Hemoglobin A1c Calcium Phosphorus Total Bilirubin AST ALT Alkaline Phosphatase Total Protein Albumin Globulin Albumin/Globulin Ratio Triglycerides Cholesterol LDL Cholesterol Direct HDL Cholesterol TSH 3rd Generation Venous Blood Potassium
--- NOTE | 2016-08-28 14:10 | CP.PCM.CON ---
History of Present Illness - History of Present Illness History of Present Illness: This is a 46 yrs old female who was admitted for swelling and redness of the right lower extremity. She was in wound care center and was found to have a temp of 102*f. She was referred to the ER where a venous doppler did not show any evidence of a DVT. I have known pt for a long time. She has h/o end stage renal disease, DM, HTN, and vascular insuffiency. She has lost 2 fingers from her right hand and 3from her left. She has had a below knee amputation left lower extremity. 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 and has been doing well. Past Patient History - Past Medical History & Family History Past Medical History?: Yes - Past Social History Smoking Status: Never Smoked - CARDIAC Hx Hypercholesterolemia: Yes Hx Hypertension: Yes Hx Peripheral Vascular Disease: Yes - PULMONARY Hx Respiratory Disorders: No - NEUROLOGICAL Hx Neurological Disorder: No - HEENT Hx HEENT Problems: Yes Hx Cataracts: Yes - RENAL Hx Chronic Kidney Disease: Yes Hx Dialysis: Yes Type of Dialysis Access: Right subclavian Permacath. Date of Last Dialysis Treatment: 08/26/16 - ENDOCRINE/METABOLIC Hx Endocrine Disorders: Yes Hx Diabetes Mellitus Type 2: Yes - HEMATOLOGICAL/ONCOLOGICAL Hx Blood Disorders: Yes (THROMBOPHILIA - Heparin Ab's, Protein C & S deficiencies.) Hx AIDS: No Hx Anemia: Yes Hx Blood Transfusions: Yes Hx Blood Transfusion Reaction: No Hx Hepatitis B: No Hx Hepatitis C: No Hx Human Immunodeficiency Virus (HIV): No - INTEGUMENTARY Hx Dermatological Problems: No - MUSCULOSKELETAL/RHEUMATOLOGICAL Hx Musculoskeletal Disorders: Yes (Charcot joint right ankle) Hx Back Pain: Yes Hx Falls: No Hx Osteomyelitis: Yes (R middle finger due to paronychial infection 2016) - GASTROINTESTINAL Hx Gastrointestinal Disorders: No Other/Comment: hx of anal fissure - GENITOURINARY/GYNECOLOGICAL Hx Genitourinary Disorders: No Other/Comment: Menorrhagia - PSYCHIATRIC Hx Substance Use: No - SURGICAL HISTORY Hx Surgeries: Yes (see Hx and PE) Hx Amputation: Yes Hx Arteriovenous Shunt: Yes (No more sites available. All previously failed.) Hx Vascular Access Device: Yes (R subclavian Permacath) Other/Comment: INSERTION OF DIALYSIS CATH;CATARACT-BOTH EYES;LEFT BELOW KNEE AMPUTATION;2ND TOE RIGHT FOOT AMPUTATION; RIGHT ANKLE SURGERY - ANESTHESIA Hx Anesthesia: Yes Hx Anesthesia Reactions: No Hx Malignant Hyperthermia: No Has any member of the family had a problem w/ anesthesia?: No Meds Allergies/Adverse Reactions: Allergies Allergy/AdvReac Type Severity Reaction Status Date / Time heparin Allergy Severe ANAPHYLAXIS Verified 08/27/16 14:01 Beta-Blockers Allergy ANAPHYLAXIS Verified 08/27/16 14:01 (Beta-Adrenergic Bloc - Medications Medications: Current Medications Acetaminophen (Tylenol 325mg Tab) 650 mg PO Q4 PRN PRN Reason: Fever >100.4 F Acetaminophen (Tylenol 325mg Tab) 650 mg PO Q4 PRN PRN Reason: Pain, moderate (4-7) Apixaban (Eliquis) 5 mg PO BID [facility] PRN Reason: Protocol Last Admin: 08/28/16 11:48 Dose: 5 mg Aspirin (Ecotrin) 81 mg PO DAILY [facility] Last Admin: 08/28/16 08:41 Dose: 81 mg Atorvastatin Calcium (Lipitor) 40 mg PO DAILY [facility] Last Admin: 08/28/16 08:41 Dose: 40 mg Cinacalcet (Sensipar) 30 mg PO DAILY [facility] Last Admin: 08/28/16 13:12 Dose: 30 mg Collagenase (Santyl) 1 applic TOP DAILY [facility] Last Admin: 08/28/16 09:27 Dose: 1 applic Docusate Sodium (Colace) 200 mg PO BID [facility] Last Admin: 08/28/16 08:40 Dose: 200 mg Gabapentin (Neurontin) 200 mg PO BID [facility] Last Admin: 08/28/16 08:41 Dose: 200 mg Hydromorphone HCl (Dilaudid) 2 mg PO Q4 PRN PRN Reason: Pain, severe (8-10) Last Admin: 08/28/16 08:33 Dose: 2 mg Piperacillin Sod/Tazobactam (Sod 2.25 gm/ Sodium Chloride) 100 mls @ 100 mls/ hr IVPB Q12 [facility] Last Admin: 08/28/16 09:26 Dose: 100 mls/hr Linezolid (Zyvox 600mg/300ml D5w) 300 mls @ 300 mls/hr IVPB Q12 [facility] Last Admin: 08/28/16 10:30 Dose: 300 mls/hr Sodium Chloride (Sodium Chloride 0.9%) 1,000 mls @ 100 mls/hr IV .Q10H [facility] Stop: 08/28/16 20:01 Last Admin: 08/27/16 19:53 Dose: 100 mls/hr Insulin Detemir (Levemir) 30 units SC HS [facility] Insulin Human Lispro (Humalog) 12 units SC AC [facility] Last Admin: 08/28/16 11:51 Dose: 12 units Senna/Docusate Sodium (Senokot S 50 Mg-8.6 Mg) 3 tab PO HS PRN PRN Reason: Constipation Sevelamer HCl (Renagel) 1,600 mg PO TID [facility] Last Admin: 08/28/16 13:12 Dose: 1,600 mg Vitamin B Complex/Vit C/Folic Acid (Nephro-Ajay) 1 tab PO DAILY [facility] Last Admin: 08/28/16 08:41 Dose: 1 tab Physical Exam - Additional Findings Additional findings: Physical exam; Alert, well oriented, in no acute distress. . Vital signs are normal Neck; Supple, no adenopathy chest; clear, no rales or rhonchi Haetrt; RSR, no murmur Abd; Soft, no mass,no h/s megaly Right upper hand has had 3fingers amputated, left had1i finger amputated. Right lower extremity below knee amputation. Results - Vital Signs Recent Vital Signs: Last Vital Signs Temp 97.7 F 08/28/16 08:28 Pulse 104 H 08/28/16 09:00 Resp 18 08/28/16 08:28 BP 125/51 L 08/28/16 08:28 Pulse Ox 95 08/28/16 08:28 - Labs Result Diagrams: 08/27/16 17:45 08/28/16 04:45 Labs: Laboratory Results - last 24 hr 08/27/16 08/27/16 08/27/16 17:40 17:45 18:40 WBC 11.0 H RBC 3.81 Hgb 11.3 L D Hct 36.2 MCV 95.0 MCH 29.8 MCHC 31.3 L RDW 20.5 H Plt Count 135 MPV 10.2 Neut % (Auto) 87.9 H Lymph % (Auto) 5.0 L [place] % (Auto) 6.3 Eos % (Auto) 0.0 Baso % (Auto) 0.8 Neut # 9.7 H Lymph # 0.5 L [place] # 0.7 Eos # 0.0 Baso # 0.1 Neutrophils % (Manual) 83 H Band Neutrophils % 1 Lymphocytes % (Manual) 9 L Monocytes % (Manual) 7 Toxic Granulation Present Platelet Estimate Normal Hypochromasia (manual) Slight Anisocytosis (manual) Slight Tear Drop Cells Slight Ovalocytes Slight pO2 14 L VBG pH 7.42 VBG pCO2 42 VBG HCO3 24.8 VBG Total CO2 28.5 H VBG O2 Sat (Calc) 18.0 L VBG Base Excess 2.4 H VBG Potassium 5.0 Sodium 131.0 L 135 Chloride 91.0 L 89 L Glucose 449 H* Lactate 2.8 H FiO2 21.0 Crit Value Called To Dr stewart johnson Crit Value Called By Crit Value Read Back Y Blood Gas Notified Time 1746 Potassium 5.0 Carbon Dioxide 20 L Anion Gap 31 H BUN 40 H Creatinine 7.5 H* Est GFR ( Amer) 7 Est GFR (Non-Af Amer) 6 POC Glucose (mg/dL) Random Glucose 595 H* D Hemoglobin A1c Calcium 9.2 Phosphorus Total Bilirubin 1.3 AST 21 ALT 9 D Alkaline Phosphatase 180 H Total Protein 8.5 H Albumin 3.7 Globulin 4.8 H Albumin/Globulin Ratio 0.8 L Triglycerides Cholesterol LDL Cholesterol Direct HDL Cholesterol TSH 3rd Generation Venous Blood Potassium 5.0 08/27/16 08/28/16 08/28/16 21:55 04:45 06:08 WBC RBC Hgb Hct MCV MCH MCHC RDW Plt Count MPV Neut % (Auto) Lymph % (Auto) [place] % (Auto) Eos % (Auto) Baso % (Auto) Neut # Lymph # [place] # Eos # Baso # Neutrophils % (Manual) Band Neutrophils % Lymphocytes % (Manual) Monocytes % (Manual) Toxic Granulation Platelet Estimate Hypochromasia (manual) Anisocytosis (manual) Tear Drop Cells Ovalocytes pO2 VBG pH VBG pCO2 VBG HCO3 VBG Total CO2 VBG O2 Sat (Calc) VBG Base Excess VBG Potassium Sodium 137 Chloride 92 L Glucose Lactate FiO2 Crit Value Called To Crit Value Called By Crit Value Read Back Blood Gas Notified Time Potassium 4.5 Carbon Dioxide 25 Anion Gap 25 H BUN 46 H Creatinine 8.8 H* Est GFR ( Amer) 6 Est GFR (Non-Af Amer) 5 POC Glucose (mg/dL) 363 H 455 H* Random Glucose 529 H* Hemoglobin A1c 11.0 H D Calcium 8.9 Phosphorus 5.1 H Total Bilirubin 0.9 AST 309 H D ALT 112 H D Alkaline Phosphatase 144 H Total Protein 7.5 Albumin 3.3 L Globulin 4.2 H Albumin/Globulin Ratio 0.8 L Triglycerides 163 H D Cholesterol 124 LDL Cholesterol Direct < 30 HDL Cholesterol 26 L TSH 3rd Generation 2.25 Venous Blood Potassium 08/28/16 11:50 WBC RBC Hgb Hct MCV MCH MCHC RDW Plt Count MPV Neut % (Auto) Lymph % (Auto) [place] % (Auto) Eos % (Auto) Baso % (Auto) Neut # Lymph # [place] # Eos # Baso # Neutrophils % (Manual) Band Neutrophils % Lymphocytes % (Manual) Monocytes % (Manual) Toxic Granulation Platelet Estimate Hypochromasia (manual) Anisocytosis (manual) Tear Drop Cells Ovalocytes pO2 VBG pH VBG pCO2 VBG HCO3 VBG Total CO2 VBG O2 Sat (Calc) VBG Base Excess VBG Potassium Sodium Chloride Glucose Lactate FiO2 Crit Value Called To Crit Value Called By Crit Value Read Back Blood Gas Notified Time Potassium Carbon Dioxide Anion Gap BUN Creatinine Est GFR ( Amer) Est GFR (Non-Af Amer) POC Glucose (mg/dL) 228 H Random Glucose Hemoglobin A1c Calcium Phosphorus Total Bilirubin AST ALT Alkaline Phosphatase Total Protein Albumin Globulin Albumin/Globulin Ratio Triglycerides Cholesterol LDL Cholesterol Direct HDL Cholesterol TSH 3rd Generation Venous Blood Potassium Assessment & Plan - Assessment and Plan (Free Text) Assessment: Impression: Cellulitis left lower extremity DM,HTN, coagulopahty past h/o CRISTY syndrome. Plan: Plan; CBC is is in the normal limits Fortunately she does not have a DVT, but we should continue her eliquis. - Date & Time Date: 08/28/16 Time: 14:40
--- NOTE | 2016-08-28 15:54 | PN ---
DATE: 08/28/2016 ROOM: 405 This is a 46-year-old female with recent uncontrolled type 2 insulin-requiring diabetes, now being fo llowed closely for metabolic management. Her glycemic levels are fluctuating with persistent hypergl ycemic accelerations as noted today. Her glucose levels have ranged from 228-455 mg/dL. Her A1c level is 11.0%, which is quite elevated a nd indicative of suboptimal metabolic control of her diabetic condition. Her latest chemistries done today showed a BUN of 46, sodium 137, potassium 4.5, chloride 92, CO2 25, glucose 529 and creatinine 8.8. She has elevated liver transaminases as noted. Her TSH is 2.25. ASSESSMENT: This is a 46-year-old female with uncontrolled and decompensated type 2 insulin-requirin g diabetes with marked hyperglycemic accelerations related to the intercurrent right leg cellulitis, which as we know would further increased insulin resistance and impair glucose tolerance thereof, on the background of a possible subtherapeutic insulin regimen. She also has diabetic microvascular com plications of diabetic retinopathy, polyneuropathy, and nephropathy with end-stage renal disease and dialysis dependence. She also has diabetic macrovascular complications of coronary artery disease an d severe peripheral arterial disease and vasculopathy with a previous left below-knee amputation and severe upper extremity gangrene and multiple finger amputations as noted thereof. She also is curren tly being managed for right leg cellulitis as noted. PLAN OF MANAGEMENT: As discussed with the patient and staff, will modify her current basal and bolus insulin regimen and increase the Levemir to 30 units subQ at bedtime daily as ordered. Will also in crease the Humalog to 16 units subQ t.i.d. to start today as ordered. Will continue the serial chemi stries to be done as she cannot do fingerstick glucose testing because of her digit amputations and g angrene and predilection for gangrene as noted. Will follow. Irene Ambrose MD cc: [phone] TT: 08/28/2016 15:53:22 Confirmation # [id number] Dictation # [id number] mn
[2016-08-28] MEDS ORDERED: Sodium Chloride 0.9% 500 ML IV SCH ×2 (16:00→16:22)
[2016-08-28 16:28] LABS: BASO % 0.2 % (0.0-2.0); LYMPH # 0.5 K/uL (1.0-4.3); LYMPH % 4.9 % (20.0-40.0); MEAN CELL VOLUME 94.2 fl (81.0-99.0); MEAN CORPUSCULAR HEMOGLOBIN 29.4 pg (27.0-31.0); MEAN CORPUSCULAR HGB CONC 31.2 g/dL (33.0-37.0); MEAN PLATELET VOLUME 10.2 fl (7.2-11.7); MONO # 0.8 K/uL (0.0-0.8); MONO % 7.8 % (0.0-10.0); NEUT # 8.8 K/uL (1.8-7.0); NEUT % 87.1 % (50.0-75.0); RED CELL DISTRIBUTION WIDTH 20.6 % (11.5-14.5); WHITE BLOOD COUNT 10.2 K/uL (4.8-10.8)
[2016-08-28] MEDS ORDERED: Insulin Lispro (humaLOG) 100 Units/ml Inj SC SCH (16:30)
[2016-08-28] MEDS ORDERED: Meropenem 500 MG in Sodium Chloride 0.9% 100 ML IVPB STA (16:33)
[2016-08-28 16:34] LABS: ALB/GLOB RATIO 0.7 (1.0-2.1); BILIRUBIN,TOTAL 0.8 mg/dl (0.2-1.3); CALCIUM 8.6 mg/dL (8.4-10.2); POTASSIUM 4.8 MMOL/L (3.6-5.0); TOTAL PROTEIN 7.2 G/DL (6.3-8.2)
--- NOTE | 2016-08-28 16:35 | PCM.RRTMUL ---
GARMENT LOOPER Nurse Assessment - Vital Signs Pulse Rate:: 104 Responder Note - Time GARMENT LOOPER was called Time GARMENT LOOPER was called:: 15:46 - Location Location: 405-2 Discovered by:: RN Primary Nurse:: Tana Green Primary Physician:: Rakel Thomas - GARMENT LOOPER Team GARMENT LOOPER Leader:: Nesha Cazares - Vital Signs at Initial Assessment Blood Pressure:: 78/0 Pulse Rate:: 127 Respiratory Rate:: 18 Temperature:: 103 F O2 Sat by Pulse Oximetry:: 96 - Acute Change in Patient Acute Change in Patient: (Select all that apply): Acute change in SBP below 90mmHg - Chest Pain Chest Pain:(If answer is yes, complete next 2 questions): No - Seizure Seizure:: No - Respiratory GARMENT LOOPER Delivery Method:: Nasal Cannula @L/min Oxygen Flow Rate:: 2 - Assessment of Findings GARMENT LOOPER Interventions: IVF NS bolus 250 EKG: SR Labs: CBC,CMP,VBG,Lactic acid, Blood c/s ( PICC , periph and dialysi catheter) IV Access Location: right antecubital IV Fluids: NS Summary - Summary of Event Summary of Event: Code Sepsis called because of hypotension, tachycardic and temp 103 I responded to the Code- Pt seen and examined, history , labs reviewed. Pt is a 46 y/o lady with hx of ESRD on HD, DM, admitted for Right foot Cellulitis. Pt looks lethargic however verbally responsive, answers questions appropriately. Denies CP, no SOB, no cough No abd pain. Blood c/s: Gram negative rods. BP 78 systolic AS=355 saturation 96% on 2 liters lethargic , oriented to person and place Lungs: minimal rales bases Chest : Right Permacath Heart; reg rhythm, tachy Abd: soft, nontender Ext: Right foot with dressing, 2nd toe amputation , right left BKA, PICC line right arm A/P: Septic Shock prob from the RLE Cellulitis r/o Line SEpsis - IVF bolus NS 250 ml - blood c/s from Permacath and PICC, and periph -CBC,CMP,Lactic acid - ICU consult - DR Bojorquez came to eval pt at bedside - will transfer pt to ICU - Pt may need pressors - Pt on IV Zosyn and Zyvox- ID Dr Lemon called - rec to add Meropenem -Dr Guadarrama informed of event - he rec that Hemodialysis be on hold till am -Pt's PMD - Dr Thomas informed of event - case discussed , will come to see pt. - Outcomes - GARMENT LOOPER Outcomes GARMENT LOOPER Outcomes: Pt transferred to ICU
[2016-08-28 16:44] LABS: VENOUS BLOOD GAS BASE EXCESS -0.4 mmol/L (0.0-2.0); VENOUS BLOOD GAS PCO2 42 mmHg (40-60); VENOUS BLOOD PH 7.38 (7.32-7.43)
[2016-08-28 16:45] LABS: PARTIAL THROMBOPLASTIN TIME 38.7 SECONDS (23.3-32.5)
[2016-08-28] MEDS ORDERED: Albumin Human 5% (12.5 gm/250 ml) IV ONE (18:12)
--- NOTE | 2016-08-28 18:21 | CP.PCM.PN ---
Subjective - Date & Time of Evaluation Date of Evaluation: 08/28/16 Time of Evaluation: 18:10 - Subjective Subjective: I D NOTE PATIENT TRANSFERED TO ICU FOR CODE SEPSIS, BLOOD CULTURE POSITIVE FOR GRAM NEGATIVE RODS. HAVE ORDERED MEROPENEM 500MG Q24 H AND ONE DOSE AMIKACIN 250MG TO COVER POSSIBILITY OF ESBL/MDR GRAM NEGATIVE BACTEREMIA RIGHT ANKLE-GHARCOT JOINT,ALL TOES ,EXCEPT MISSING TOE APPEAR TO HAVE DRY GANGRENOUS CHANGES.HEEL HAS ULCERATION FOOT HAS INTACT DRESSING WOULD ECHOCARDIOGRAM WHEN POSSIBLE WILL REVIEW FOR ANY NECESSARY CHANGES TOMORROW FULL CONSULT DICTATED Objective - Vital Signs/Intake and Output Vital Signs (last 24 hours): Temp Pulse Resp BP Pulse Ox 103 F H 114 H 24 86/31 L 96 08/28/16 17:21 08/28/16 17:30 08/28/16 17:30 08/28/16 17:30 08/28/16 15:23 - Medications Medications: Current Medications Acetaminophen (Tylenol 325mg Tab) 650 mg PO Q4 PRN PRN Reason: Fever >100.4 F Last Admin: 08/28/16 15:23 Dose: 650 mg Acetaminophen (Tylenol 325mg Tab) 650 mg PO Q4 PRN PRN Reason: Pain, moderate (4-7) Apixaban (Eliquis) 5 mg PO BID [facility] PRN Reason: Protocol Last Admin: 08/28/16 11:48 Dose: 5 mg Aspirin (Ecotrin) 81 mg PO DAILY [facility] Last Admin: 08/28/16 08:41 Dose: 81 mg Atorvastatin Calcium (Lipitor) 40 mg PO DAILY [facility] Last Admin: 08/28/16 08:41 Dose: 40 mg Cinacalcet (Sensipar) 30 mg PO DAILY [facility] Last Admin: 08/28/16 13:12 Dose: 30 mg Collagenase (Santyl) 1 applic TOP DAILY [facility] Last Admin: 08/28/16 09:27 Dose: 1 applic Docusate Sodium (Colace) 200 mg PO BID [facility] Last Admin: 08/28/16 08:40 Dose: 200 mg Gabapentin (Neurontin) 200 mg PO BID [facility] Last Admin: 08/28/16 08:41 Dose: 200 mg Hydromorphone HCl (Dilaudid) 2 mg PO Q4 PRN PRN Reason: Pain, severe (8-10) Last Admin: 08/28/16 08:33 Dose: 2 mg Piperacillin Sod/Tazobactam (Sod 2.25 gm/ Sodium Chloride) 100 mls @ 100 mls/ hr IVPB Q12 [facility] Last Admin: 08/28/16 09:26 Dose: 100 mls/hr Linezolid (Zyvox 600mg/300ml D5w) 300 mls @ 300 mls/hr IVPB Q12 [facility] Last Admin: 08/28/16 10:30 Dose: 300 mls/hr Sodium Chloride (Sodium Chloride 0.9%) 1,000 mls @ 100 mls/hr IV .Q10H [facility] Stop: 08/28/16 20:01 Last Admin: 08/27/16 19:53 Dose: 100 mls/hr Meropenem 500 mg/ Sodium (Chloride) 100 mls @ 100 mls/hr IVPB DAILY [facility] Amikacin Sulfate 250 mg/ (Sodium Chloride) 251 mls @ 250 mls/hr IVPB ONCE ONE Stop: 08/28/16 21:00 Insulin Detemir (Levemir) 30 units SC HS [facility] Insulin Human Lispro (Humalog) 18 units SC AC [facility] Last Admin: 08/28/16 17:16 Dose: 18 u Senna/Docusate Sodium (Senokot S 50 Mg-8.6 Mg) 3 tab PO HS PRN PRN Reason: Constipation Sevelamer HCl (Renagel) 1,600 mg PO TID [facility] Last Admin: 08/28/16 13:12 Dose: 1,600 mg Vitamin B Complex/Vit C/Folic Acid (Nephro-Ajay) 1 tab PO DAILY [facility] Last Admin: 08/28/16 08:41 Dose: 1 tab - Labs Labs: 08/28/16 16:11 08/28/16 16:17 PT 16.5 SECONDS (9.6-11.2) H 08/28/16 16:11 INR 1.59 (0.92-1.08) H 08/28/16 16:11 APTT 38.7 SECONDS (23.3-32.5) H 08/28/16 16:11
--- NOTE | 2016-08-28 18:23 | CP.CCUPN ---
CCU Subjective - Physician Review Subjective (Free Text): GROUND INSTRUCTOR ADVANCED PROGRESS NOTE Patient examined, interim events reviewed, discussed with PMD and APPARATUS OPERATOR members: 46F admitted yesterday for RLE cellulitis and DVT to Telemetry unit, APPARATUS OPERATOR called today for hypotension, and tachycardia, assoc with fever and new lactic acidosis , prompting Code Sepsis evaluation. Given 250 ml fluid challenge for SBP in the 70s, mother at bedside and was able to converse with patient earlier today but reports she easily falls asleep now. She is arousable to verbal stimuli and does not appear distressed, nor does she complain of any chest discomfort, SOB, N/V, dizziness, headaches, chills, diaphoresis, abdominal pain, but only mentions RLE discomfort. Febrile to 103F, BP 80/40, HR 125 in sinus rhythm, RR 18, SPo2 96% on nasal cannula. She last underwent HD yesterday. She has been empirically started on Zyvox/ Zosyn/Vanco. A new RUE PICC line was inserted yesterday. Decision made to transfer to ICU for probable vasopressors and hemodynamic monitoring. PMH: ESRD on HD x 13yrs, HTN, DM II, Protein C/ Protein S deficicncy state; Severe PVD, chronic disease anemia Home meds: Ecotrin, Eliquis, Levemir, Lipitor, Neurontin, Sevelemer Allergies: Heparin, Beta Blockers ROS: as above, no new pertinent negs or positives on 12 system review. PMFSH: all nursing and historical notes reviewed, no new pertinent data relevant to current problems. No other distress noted: EXAM- HEENT: no icterus, pupils equal and reactive, no nystagmus NECK: no visible JVD, supple, carotids equal upstroke bilat/no bruits CHEST: decreased BS bases, no wheezes audible, R SC dialysis catheter HEART: regular, distant, tachy S1S2, no murmur audible, no rubs. ABD: soft, obese, no increased distention, no focal tenderness, no HSM. BS hypoactive, no abdominal bruits or other masses EXT: R hand with amputated 3rd digit, L hand with amputated 2nd, 3rd, 4th digits. Intact LLE BKA stump; R ankle Charcot joint, dressing intact, R toes ( missing R 2nd toe) all appear with dry gangrenous changes. ++ R leg edema, no peripheral/ digital cyanosis, no calf tenderness or palpable cords, distal pulses non-palpable R foot. L-AV shunt intact with bruit and thrill. Single lumen PICC RUE. NEURO: no gross focal motor deficits. SKIN: no rashes LABS: WBC= 10.2 HGB= 10.0 PLTs= 121K PT= 16.5, INR= 1.59, PTT= 38.7 VBG= 7.38/42/24 with 43% satn Lactate = 3.6 on VBG Na= 135 K= 4.8 HCO3= 23 BUN/Cr= 50/9.1 WQ=122 CXR: 08/27/16 mild PVC present; no infiltrates nor definite consolidation; otherwise underpenetrated film. ( my interp ) ECHO today; result pending. ASSESSMENT: 1. Sepsis with Shock and Lactate Acidosis 2. Shock due to Sepsis, r/o Bacteremia; and Cardiac dysfunction from Severe Sepsis 3. r/o element of hypovolemia 4. r/o occult Myocardial ischemia 5. Uncontrolled IRDM II 6. RLE cellulitis with DVT, on AC. 7. ESRD on HD PLAN: 1. Could restore some volume with 5% Albumin infusion. Oxygen satn remains intact on nasal cannula O2. 2. Consider Dobutamine for low mixed venous SvO2; await ECHO results. Follow serial lactate levels. Next eval in 4 hours at approx. 8PM. 3. New addition of Meropenem to current regimen. 4. Successive titration of Levemir noted for hyperglycemia. 5. Check Serial Trops, EKG 6. Ongoing Eliquis therapy.
[2016-08-28] MEDS: DOBUTamine 500mg/250ml D5W 250 ML IV SCH (18:25)
--- NOTE | 2016-08-28 18:29 | PCM.SEPTIC ---
Sepsis Progress Note - Reassessment Type Date of Evaluation: 08/28/16 Time of Evaluation: 18:30 Reassessment Type: Non-invasive reassessment - Non Invasive Reassessment Were the most recent vital sign reviewed: Yes Vital Sign (Latest): Temp Pulse Resp BP Pulse Ox 103 F H 115 H 24 61/54 L 96 08/28/16 17:21 08/28/16 18:00 08/28/16 18:00 08/28/16 18:00 08/28/16 15:23 Cardiovascular: Yes: Tachycardia Respiratory: Yes: Decreased Breath Sounds Capillary Refill: Delayed Pulses: Decreased Radial, Decreased Dorsalis Pedis, Decreased Posterior Tibialis Skin: Normal Color, Warm, Dry - Invasive Reassessment (complete 2 of 4) Was a Central Venous Pressure Measurement obtained within 6 Hours after the presentation of septic shock: No Sv02: 43 Was a bedside cardiovascular ultrasound performed within 6 hours after the presentation of septic shock: No Type performed: Echocardiogram Was a passive leg raise performed or was a fluid challenge performed within 6 hrs of the initial fluid bolus: No Passive Leg Raise Result: Not Applicable Fluid Challenge performed: Yes
--- NOTE | 2016-08-28 19:27 | CP.PCM.PN ---
Subjective - Date & Time of Evaluation Date of Evaluation: 08/28/16 Time of Evaluation: 19:23 - Subjective Subjective: Patient became hypotensive (80/40), tachycardic (130) and obtunded earlier this afternoon. Temperature chris to 103 degrees. Blood culture returned as growing gram negative bacteria. Hyperglycemia persists. LDH and transaminases elevated. Patient was transfered to ICU where she was given IV saline and started on dobutamine drip by Dr. Bojorquez. Consultants made aware of new situation: Dr. Richard Shepard agreed with the plan of care. Dr. Richard Ambrose will probably start patient on insulin IV drip. Dr. Levon Lemon ordered further blood testing by microbiology and ordered IV Amikacin and IV Meropenem, continuing IV Zyvox and Zosyn. On nasal oxygen at 2L/min pulse oximeter reads 95%. Hemodialysis held because of hypotension. Gabapentin stopped because it is sedating. Objective - Vital Signs/Intake and Output Vital Signs (last 24 hours): Temp Pulse Resp BP Pulse Ox 103 F H 114 H 34 H 108/84 96 08/28/16 17:21 08/28/16 18:51 08/28/16 18:51 08/28/16 18:51 08/28/16 15:23 Now pulse is 125 and BP is 126/24 - Medications Medications: Current Medications Acetaminophen (Tylenol 325mg Tab) 650 mg PO Q4 PRN PRN Reason: Fever >100.4 F Last Admin: 08/28/16 15:23 Dose: 650 mg Acetaminophen (Tylenol 325mg Tab) 650 mg PO Q4 PRN PRN Reason: Pain, moderate (4-7) Apixaban (Eliquis) 5 mg PO BID [facility] PRN Reason: Protocol Last Admin: 08/28/16 11:48 Dose: 5 mg Aspirin (Ecotrin) 81 mg PO DAILY [facility] Last Admin: 08/28/16 08:41 Dose: 81 mg Atorvastatin Calcium (Lipitor) 40 mg PO DAILY [facility] Last Admin: 08/28/16 08:41 Dose: 40 mg Cinacalcet (Sensipar) 30 mg PO DAILY [facility] Last Admin: 08/28/16 13:12 Dose: 30 mg Collagenase (Santyl) 1 applic TOP DAILY [facility] Last Admin: 08/28/16 09:27 Dose: 1 applic Docusate Sodium (Colace) 200 mg PO BID [facility] Last Admin: 08/28/16 08:40 Dose: 200 mg Hydromorphone HCl (Dilaudid) 2 mg PO Q4 PRN PRN Reason: Pain, severe (8-10) Last Admin: 08/28/16 08:33 Dose: 2 mg Piperacillin Sod/Tazobactam (Sod 2.25 gm/ Sodium Chloride) 100 mls @ 100 mls/ hr IVPB Q12 [facility] Last Admin: 08/28/16 09:26 Dose: 100 mls/hr Linezolid (Zyvox 600mg/300ml D5w) 300 mls @ 300 mls/hr IVPB Q12 [facility] Last Admin: 08/28/16 10:30 Dose: 300 mls/hr Sodium Chloride (Sodium Chloride 0.9%) 1,000 mls @ 100 mls/hr IV .Q10H [facility] Stop: 08/28/16 20:01 Last Admin: 08/27/16 19:53 Dose: 100 mls/hr Meropenem 500 mg/ Sodium (Chloride) 100 mls @ 100 mls/hr IVPB DAILY [facility] Amikacin Sulfate 250 mg/ (Sodium Chloride) 101 mls @ 100.609 mls/hr IVPB ONCE ONE Stop: 08/28/16 21:00 Norepinephrine Bitartrate 4 mg (/ Dextrose) 254 mls @ 9.52 mls/hr IV .Q24H [facility] ; 2.5 MCG/MIN PRN Reason: Protocol Last Admin: 08/28/16 18:53 Dose: 9.52 mls/hr Dobutamine HCl/Dextrose (Dobutamine/Dextrose 5% 500mg/250ml) 250 mls @ 16.67 mls/hr IV .Q15H [facility] PRN Reason: 5 MCG/KG/MIN Last Admin: 08/28/16 18:25 Dose: 16.67 mls/hr Insulin Detemir (Levemir) 30 units SC HS [facility] Insulin Human Lispro (Humalog) 18 units SC AC [facility] Last Admin: 08/28/16 17:16 Dose: 18 u Senna/Docusate Sodium (Senokot S 50 Mg-8.6 Mg) 3 tab PO HS PRN PRN Reason: Constipation Sevelamer HCl (Renagel) 1,600 mg PO TID [facility] Last Admin: 08/28/16 13:12 Dose: 1,600 mg Vitamin B Complex/Vit C/Folic Acid (Nephro-Ajay) 1 tab PO DAILY [facility] Last Admin: 08/28/16 08:41 Dose: 1 tab - Labs Labs: 08/28/16 16:11 08/28/16 16:17 PT 16.5 SECONDS (9.6-11.2) H 08/28/16 16:11 INR 1.59 (0.92-1.08) H 08/28/16 16:11 APTT 38.7 SECONDS (23.3-32.5) H 08/28/16 16:11 Micro Results 08/27/16 17:45 Blood-Venous Blood Culture - Preliminary Gram Negative Pardeep 08/27/16 17:45 Blood-Venous Gram Stain - Final 08/27/16 20:09 Foot - Right Gram Stain - Final Most Recent Lab Values WBC 10.2 K/uL (4.8-10.8) 08/28/16 16:11 RBC 3.40 Mil/uL (3.80-5.20) L 08/28/16 16:11 Hgb 10.0 g/dL (12.0-16.0) L 08/28/16 16:11 Hct 32.0 % (34.0-47.0) L 08/28/16 16:11 MCV 94.2 fl (81.0-99.0) 08/28/16 16:11 MCH 29.4 pg (27.0-31.0) 08/28/16 16:11 MCHC 31.2 g/dL (33.0-37.0) L 08/28/16 16:11 RDW 20.6 % (11.5-14.5) H 08/28/16 16:11 Plt Count 121 K/uL (130-400) L 08/28/16 16:11 MPV 10.2 fl (7.2-11.7) 08/28/16 16:11 Neut % (Auto) 87.1 % (50.0-75.0) H 08/28/16 16:11 Lymph % (Auto) 4.9 % (20.0-40.0) L 08/28/16 16:11 Alexander % (Auto) 7.8 % (0.0-10.0) 08/28/16 16:11 Eos % (Auto) 0.0 % (0.0-4.0) 08/28/16 16:11 Baso % (Auto) 0.2 % (0.0-2.0) 08/28/16 16:11 Neut # 8.8 K/uL (1.8-7.0) H 08/28/16 16:11 Lymph # 0.5 K/uL (1.0-4.3) L 08/28/16 16:11 Alexander # 0.8 K/uL (0.0-0.8) 08/28/16 16:11 Eos # 0.0 K/uL (0.0-0.7) 08/28/16 16:11 Baso # 0.0 K/uL (0.0-0.2) 08/28/16 16:11 Neutrophils % (Manual) 83 % (42-75) H 08/27/16 17:45 Band Neutrophils % 1 % (0-2) 08/27/16 17:45 Lymphocytes % (Manual) 9 % (20-50) L 08/27/16 17:45 Monocytes % (Manual) 7 % (0-10) 08/27/16 17:45 Toxic Granulation Present 08/27/16 17:45 Platelet Estimate Normal (NORMAL) 08/27/16 17:45 Hypochromasia (manual) Slight 08/27/16 17:45 Anisocytosis (manual) Slight 08/27/16 17:45 Tear Drop Cells Slight 08/27/16 17:45 Ovalocytes Slight 08/27/16 17:45 PT 16.5 SECONDS (9.6-11.2) H 08/28/16 16:11 INR 1.59 (0.92-1.08) H 08/28/16 16:11 APTT 38.7 SECONDS (23.3-32.5) H 08/28/16 16:11 pO2 24 mm/Hg (30-55) L 08/28/16 16:13 VBG pH 7.38 (7.32-7.43) 08/28/16 16:13 VBG pCO2 42 mmHg (40-60) 08/28/16 16:13 VBG HCO3 23.5 mmol/L 08/28/16 16:13 VBG Total CO2 26.1 mmol/L (22-28) 08/28/16 16:13 VBG O2 Sat (Calc) 43.4 % (40-65) 08/28/16 16:13 VBG Base Excess -0.4 mmol/L (0.0-2.0) L 08/28/16 16:13 VBG Potassium 4.7 mmol/L (3.6-5.2) 08/28/16 16:13 Sodium 133.0 mmol/L (132-148) 08/28/16 16:13 Chloride 96.0 mmol/L (98-107) L 08/28/16 16:13 Glucose 470 mg/dL (65-105) H* 08/28/16 16:13 Lactate 3.6 mmol/L (0.7-2.1) H 08/28/16 16:13 FiO2 28.0 % 08/28/16 16:13 Blood Gas Comments Lactate 3.6 08/28/16 16:13 Crit Value Called To jovani Avery 08/28/16 16:13 Crit Value Called By Titus 08/28/16 16:13 Crit Value Read Back Y 08/28/16 16:13 Blood Gas Notified Time 1616 08/28/16 16:13 Sodium 135 mmol/l (132-148) 08/28/16 16:17 Potassium 4.8 MMOL/L (3.6-5.0) 08/28/16 16:17 Chloride 92 mmol/L (98-107) L 08/28/16 16:17 Carbon Dioxide 23 mmol/L (22-30) 08/28/16 16:17 Anion Gap 25 (10-20) H 08/28/16 16:17 BUN 50 mg/dl (7-17) H 08/28/16 16:17 Creatinine 9.1 mg/dL (0.7-1.2) H* 08/28/16 16:17 Est GFR ( Amer) 6 08/28/16 16:17 Est GFR (Non-Af Amer) 5 08/28/16 16:17 POC Glucose (mg/dL) 459 mg/dL (65-110) H* 08/28/16 17:08 Random Glucose 493 mg/dL (65-105) H* 08/28/16 16:17 Hemoglobin A1c 11.0 % (4.2-6.5) H D 08/28/16 04:45 Lactic Acid 3.7 MMOL/L (0.7-2.1) H 08/28/16 16:11 Calcium 8.6 mg/dL (8.4-10.2) 08/28/16 16:17 Phosphorus 5.1 mg/dl (2.5-4.5) H 08/28/16 04:45 Total Bilirubin 0.8 mg/dl (0.2-1.3) 08/28/16 16:17 AST 269 U/L (14-36) H 08/28/16 16:17 ALT 127 U/L (9-52) H 08/28/16 16:17 Alkaline Phosphatase 130 U/L (38-126) H 08/28/16 16:17 Total Protein 7.2 G/DL (6.3-8.2) 08/28/16 16:17 Albumin 3.1 g/dL (3.5-5.0) L 08/28/16 16:17 Globulin 4.2 gm/dL (2.2-3.9) H 08/28/16 16:17 Albumin/Globulin Ratio 0.7 (1.0-2.1) L 08/28/16 16:17 Triglycerides 163 mg/DL (0-149) H D 08/28/16 04:45 Cholesterol 124 mg/dL (0-199) 08/28/16 04:45 LDL Cholesterol Direct < 30 mg/dL (0-129) 08/28/16 04:45 HDL Cholesterol 26 MG/DL (30-70) L 08/28/16 04:45 TSH 3rd Generation 2.25 mIU/ML (0.46-4.68) 08/28/16 04:45 Venous Blood Potassium 4.7 mmol/L (3.6-5.2) 08/28/16 16:13 - Constitutional Appears: Toxic, Other (Obtunded - responding only when stimulated, unable to answer her phone) - Head Exam Head Exam: NORMAL INSPECTION - Eye Exam Eye Exam: Normal appearance - ENT Exam ENT Exam: Mucous Membranes Moist - Neck Exam Neck Exam: Normal Inspection Additional comments: R subclavian Permacath intact. - Respiratory Exam Additional comments: Some crackles at bases, upper ewing clear. No rubs. - Cardiovascular Exam Cardiovascular Exam: Tachycardia, REGULAR RHYTHM - GI/Abdominal Exam GI & Abdominal Exam: Soft - Extremities Exam Additional comments: Left fifth finger is cool, unable to palpate a good radial pulse. Right hand is warm, but also cannot palpate a radial pulse. 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 Left BK residual limb is OK. R foot heel with boggy eschar - dressing intact. No palpable DP pulse. R ankle Charcot joint. R upper arm PICC line - functioning. - Back Exam Back Exam: NORMAL INSPECTION - Neurological Exam Neurological Exam: Altered - Skin Skin Exam: Dry, Normal Color Additional comments: Clear except as noted for extremities. Assessment and Plan (1) SIRS (systemic inflammatory response syndrome) Assessment & Plan: Hypotension, shock liver, elevated LSH, poor tissue perfusion, obtunded state - prognosis is guarded. As per Dr. Shepard will give IV hydration with NSS (after 250 cc fluid challenge , will now start 200 cc/hr and monitor for fluid overload) Continue dobutamine as per Dr. Bojorquez's order. Continue IV antibiotics. CXR and ECG ordered for the morning. Blood work ordered for the morning. Status: Acute (2) Cellulitis of leg Assessment & Plan: No evidence for DVTP. Status: Acute (3) Ulcer of right heel Assessment & Plan: Osteomyelitis is strongly suspected. Continue antibiotics as described in subjective. Continue local wound care for now. Status: Acute (4) DM type 2 (diabetes mellitus, type 2) Assessment & Plan: Not controlled. Dr. Ambrose will probably order IV insulin for better control. Status: Chronic (5) Coagulopathy Assessment & Plan: Continue Eliquis 5mg bid and ASA 81mg qd. Status: Chronic (6) ESRD (end stage renal disease) on dialysis Assessment & Plan: This is being managed by Dr. Alta Guadarrama. Status: Chronic (7) Hyperlipidemia Status: Acute (8) Peripheral arterial occlusive disease Status: Acute
[2016-08-28] MEDS: Sodium Chloride 0.9% 1,000 ML IV SCH (20:37)
--- NOTE | 2016-08-28 22:44 | CON ---
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 She has been in renal failure for some time and I have seen her on multiple occasions for cellulitis and infection of the right and left hand. She has lost 3 fingers on the left hand and 1 finger on the right hand and also her entire left lower leg. Presently, she is on Eliquis and aspirin. She also has a history of diabetes mellitus and is on Humalog 12 units 3 times a day before meals and Levemir 35 units at bedtime. The patient has been treated with IV antibiotics on multiple occasions and has had multiple hand surgeries by Dr. Brown. Presently, she is admitted because of right lower extremity cellulitis with a heel ulcer and what appears to be gangrenous toes and a Charcot joint. Dr. Gordon was seeing her in the wound care center and noted that she had 102 fever and a tender right calf. From there, she was sent to the Emergency Room and a PICC line was placed last night. Last night, I also started her on Zosyn and Zyvox, and today, she has subsequently gone into what appears to be gram- negative sepsis. Blood culture taken from last night shows a gram-negative gloria. LABORATORY DATA: WBC today is 10.2, hemoglobin is 10, platelets are 121; yesterday, they were 135. She has a left shift on a differential. Chemistry, she has not been dialyzed today; it was held because of the lethargy and hypotension, and right now, her creatinine is 9.1 and GFR is 6. Blood sugar is also quite elevated at 455. PHYSICAL EXAMINATION: GENERAL: The patient at the present time quite lethargic. HEENT: Within normal limits. NECK: Supple. LUNGS: Some decreased breath sounds at the bases. HEART: Tachycardic. ABDOMEN: Soft with positive bowel sounds. EXTREMITIES: Show as previously noted right lower leg calf with swelling, erythema and tenderness and right ankle joint marked with Charcot deformity, ulcer on the right heel which is by eschar and also has what appears to be dry gangrenous changes on the digits. She also has a left BK amputation. Also previously noted is right upper extremity she has a third digit, which was amputated, and the left upper extremity, there was amputations of second, third and fourth digits of fingers. IMPRESSION: Gram-negative sepsis, coagulopathy, diabetes, along with the gram- negative sepsis cellulitis of the left lower extremity, end-stage renal disease on dialysis, hyperlipidemia and hypertension.but presently is hypotensive The patient had been started on Zyvox and Zosyn, Zyvox 600 mg IV piggyback q. 12 and Zosyn 2.275 grams IV piggyback q. 12. Today, I have added meropenem 500 mg IV piggyback q. 24 and I am giving 1 dose of amikacin 250 mg. Tomorrow, she is scheduled for dialysis if hypotension improves and clinical status improves. Sidney Lemon MD cc: [id number] TT: 08/28/2016 22:43:35 Confirmation # [id number] Dictation # [id number]
[2016-08-29] MEDS: Sodium Chloride 0.9% 1,000 ML IV SCH ×4 (01:38→11:47)
[2016-08-29 06:02] LABS: HEMATOCRIT 31.2 % (34.0-47.0); MEAN CELL VOLUME 95.4 fl (81.0-99.0); MEAN CORPUSCULAR HEMOGLOBIN 28.9 pg (27.0-31.0); MEAN CORPUSCULAR HGB CONC 30.3 g/dL (33.0-37.0); RED CELL DISTRIBUTION WIDTH 21.1 % (11.5-14.5); WHITE BLOOD COUNT 14.1 K/uL (4.8-10.8)
[2016-08-29 06:14] LABS: ALB/GLOB RATIO 0.8 (1.0-2.1); BILIRUBIN,TOTAL 0.9 mg/dl (0.2-1.3); CALCIUM 8.7 mg/dL (8.4-10.2); POTASSIUM 4.4 MMOL/L (3.6-5.0); TOTAL PROTEIN 7.1 G/DL (6.3-8.2)
[2016-08-29] MEDS: Insulin Lispro (humaLOG) 100 Units/ml Inj SC SCH ×3 (06:33→17:06)
[2016-08-29 07:28] LABS: TROPONIN I 1.38 ng/mL (0.00-0.120)
--- NOTE | 2016-08-29 08:11 | CP.PCM.PN ---
Subjective - Date & Time of Evaluation Date of Evaluation: 08/29/16 Time of Evaluation: 08:00 - Subjective Subjective: Podiatry Progress Note for Dr. Pruett: 46 yo female w/ pmhx HTN, ESRD, coagulopathy, DM, PVD seen at bedside in the ICU this morning for follow-up of right heel ulceration and right calf pain. 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 Pt was subsequently transferred to the ICU for close monitoring. Pt seen resting in bed at time of visit, dressing to right foot c/d/i with prevalon boot in place. Pt easily arousable but lethargic. Denies f/n/v/c/sob/cp at this time. Does complain of right calf pain today but says it is improved from yesterday. Denies any discomfort to the foot or ankle. Pt receiving hemodialysis this morning. Objective - Vital Signs/Intake and Output Vital Signs (last 24 hours): Temp Pulse Resp BP Pulse Ox 98.9 F 124 H 11 L 95/44 L 92 L 08/29/16 08:00 08/29/16 08:00 08/29/16 08:00 08/29/16 08:00 08/29/16 08:00 Intake and Output: 08/29/16 08/29/16 06:59 18:59 Intake Total 2443 Balance 2443 - Medications Medications: Current Medications Acetaminophen (Tylenol 325mg Tab) 650 mg PO Q4 PRN PRN Reason: Fever >100.4 F Last Admin: 08/28/16 15:23 Dose: 650 mg Acetaminophen (Tylenol 325mg Tab) 650 mg PO Q4 PRN PRN Reason: Pain, moderate (4-7) Last Admin: 08/29/16 02:39 Dose: 650 mg Apixaban (Eliquis) 5 mg PO BID [facility] PRN Reason: Protocol Last Admin: 08/28/16 11:48 Dose: 5 mg Aspirin (Ecotrin) 81 mg PO DAILY [facility] Last Admin: 08/28/16 08:41 Dose: 81 mg Atorvastatin Calcium (Lipitor) 40 mg PO DAILY [facility] Last Admin: 08/28/16 08:41 Dose: 40 mg Cinacalcet (Sensipar) 30 mg PO DAILY [facility] Last Admin: 08/28/16 13:12 Dose: 30 mg Collagenase (Santyl) 1 applic TOP DAILY [facility] Last Admin: 08/28/16 09:27 Dose: 1 applic Docusate Sodium (Colace) 200 mg PO BID [facility] Last Admin: 08/28/16 08:40 Dose: 200 mg Hydromorphone HCl (Dilaudid) 2 mg PO Q4 PRN PRN Reason: Pain, severe (8-10) Last Admin: 08/28/16 08:33 Dose: 2 mg Piperacillin Sod/Tazobactam (Sod 2.25 gm/ Sodium Chloride) 100 mls @ 100 mls/ hr IVPB Q12 [facility] Last Admin: 08/28/16 20:48 Dose: 100 mls/hr Linezolid (Zyvox 600mg/300ml D5w) 300 mls @ 300 mls/hr IVPB Q12 [facility] Last Admin: 08/28/16 20:48 Dose: 300 mls/hr Meropenem 500 mg/ Sodium (Chloride) 100 mls @ 100 mls/hr IVPB DAILY [facility] Norepinephrine Bitartrate 4 mg (/ Dextrose) 254 mls @ 9.52 mls/hr IV .Q24H [facility] ; 2.5 MCG/MIN PRN Reason: Protocol Last Admin: 08/28/16 18:53 Dose: 9.52 mls/hr Dobutamine HCl/Dextrose (Dobutamine/Dextrose 5% 500mg/250ml) 250 mls @ 16.67 mls/hr IV .Q15H [facility] PRN Reason: 5 MCG/KG/MIN Last Admin: 08/28/16 18:25 Dose: 16.67 mls/hr Sodium Chloride (Sodium Chloride 0.9%) 1,000 mls @ 200 mls/hr IV .Q5H [facility] Stop: 08/29/16 20:31 Last Admin: 08/29/16 06:38 Dose: 200 mls/hr Insulin Detemir (Levemir) 20 units SC DAILY [facility] Insulin Detemir (Levemir) 40 units SC HS [facility] Insulin Human Lispro (Humalog) 24 units SC AC [facility] Last Admin: 08/29/16 06:33 Dose: 24 units Senna/Docusate Sodium (Senokot S 50 Mg-8.6 Mg) 3 tab PO HS PRN PRN Reason: Constipation Sevelamer HCl (Renagel) 1,600 mg PO TID [facility] Last Admin: 08/28/16 13:12 Dose: 1,600 mg Vitamin B Complex/Vit C/Folic Acid (Nephro-Ajay) 1 tab PO DAILY [facility] Last Admin: 08/28/16 08:41 Dose: 1 tab - Labs Labs: 08/29/16 05:45 08/29/16 05:45 PT 16.5 SECONDS (9.6-11.2) H 08/28/16 16:11 INR 1.59 (0.92-1.08) H 08/28/16 16:11 APTT 38.7 SECONDS (23.3-32.5) H 08/28/16 16:11 - Constitutional Appears: Non-toxic, No Acute Distress - Extremities Exam Additional comments: Right lower extremity exam: VASC- DP pulse is palpable (1/4), PT pulse non-palp, skin temp runs warm to warm , capillary refill < 5 sec to digits x 5, moderate 2+ pitting edema noted to anterior aspect of leg and dorsum of foot NEURO-gross pedal sensation is diminished DERM- superficial dry eschar noted to plantar aspect of heel, slight serous drainage, no purulence, no probe to bone, no undermining, no malodor, no ascending erythema ORTHO- slight tenderness noted to deep palpation of calf/posterior leg, patient able to flex and extend all digits, severe varus deformity of ankle noted - Neurological Exam Neurological Exam: Alert, Awake, Oriented x3 - Psychiatric Exam Psychiatric exam: Normal Affect, Normal Mood Assessment and Plan - Assessment and Plan (Free Text) Assessment: 46 yo female patient w/ pmhx of HTN, ESRD (on dialysis), coagulopathy, DM, charcot right foot PVD admitted for sepsis, stable right heel ulceration, painful right posterior leg Plan: --Pt seen and evaluated in ICU --Discussed plan with attending Dr. Pruett in detail --Chart,vitals reviewed: Tmax overnight 100.1, currently afebrile, tachy at 124 , wbc 14.0 (up from 10.2) --Venous duplex US (RLE): negative for DVT --Right foot x-ray: diffuse soft tissue swelling, severe neuropathic tiffanie changes. No evidence acute articular or osseous abnormality. --Blood cx: gram neg rods --IV abx per ID Dr. Greenberg: received STAT dose amikacin yesterday. Now on meropenem 500 mg qd, zosyn 2.25 gq12, linezolid 600 mg q12 --Pain meds per primary (dilaudid) --On eliquis 5 mg po bid --Tylenol for fever --Right heel ulceration cleansed with sterile saline, santyl applied and wound dressed with damp 4x4 gauze, ABD, arturo. Offloading prevalon boot to be applied to right heel at all times in bed --Podiatry will continue to monitor closely.
[2016-08-29] MEDS: Santyl Collagenase OINTMENT TOP SCH (09:00)
--- NOTE | 2016-08-29 09:16 | CP.PCM.PN ---
Subjective - Date & Time of Evaluation Date of Evaluation: 08/29/16 Time of Evaluation: 09:00 - Subjective Subjective: Spiked temp of 103F and became hypotensive last evening Responded promptly to IV fluids and Albumin (was put on pressors also) No chest pain EKG continues to show concave ST elevation in III and aVF (now for > 24 hrs, without any Q waves) Troponin levels were elevated following hypotensive episode (?? due to CKD, ? following poor coronary perfusion) If serial troponin levels remain flat would strongly indicate CKD as the aetiology Now pt undergoing HD , so far tolerating it well Her CO is volume dependent and aggressive fluid removal during HD is likely to cause hypotension Yesterday's echo is of poor quality due to poor echo window LV syst function appears preserved (diastolic function depressed) Doubt AMI Will follow EKG and Serial Troponin levels Discussed with Master Planner Objective - Vital Signs/Intake and Output Vital Signs (last 24 hours): Temp Pulse Resp BP Pulse Ox 98.9 F 124 H 11 L 95/44 L 92 L 08/29/16 08:00 08/29/16 08:00 08/29/16 08:00 08/29/16 08:00 08/29/16 08:00 Intake and Output: 08/29/16 08/29/16 06:59 18:59 Intake Total 2443 227 Balance 2443 227 - Medications Medications: Current Medications Acetaminophen (Tylenol 325mg Tab) 650 mg PO Q4 PRN PRN Reason: Fever >100.4 F Last Admin: 08/28/16 15:23 Dose: 650 mg Acetaminophen (Tylenol 325mg Tab) 650 mg PO Q4 PRN PRN Reason: Pain, moderate (4-7) Last Admin: 08/29/16 02:39 Dose: 650 mg Apixaban (Eliquis) [address] [facility] PRN Reason: Protocol Last Admin: 08/28/16 11:48 Dose: 5 mg Aspirin (Ecotrin) [address] [facility] Last Admin: 08/28/16 08:41 Dose: 81 mg Atorvastatin Calcium (Lipitor) [address] [facility] Last Admin: 08/28/16 08:41 Dose: 40 mg Cinacalcet (Sensipar) [address] [facility] Last Admin: 08/28/16 13:12 Dose: 30 mg Collagenase (Santyl) [address] [facility] Last Admin: 08/28/16 09:27 Dose: 1 applic Docusate Sodium (Colace) [address] [facility] Last Admin: 08/28/16 08:40 Dose: 200 mg Hydromorphone HCl (Dilaudid) 2 mg PO Q4 PRN PRN Reason: Pain, severe (8-10) Last Admin: 08/28/16 08:33 Dose: 2 mg Piperacillin Sod/Tazobactam (Sod 2.25 gm/ Sodium Chloride) 100 mls @ 100 mls/ hr IVPB Q12 [facility] Last Admin: 08/28/16 20:48 Dose: 100 mls/hr Linezolid (Zyvox 600mg/300ml D5w) 300 mls @ 300 mls/hr IVPB Q12 [facility] Last Admin: 08/28/16 20:48 Dose: 300 mls/hr Meropenem 500 mg/ Sodium (Chloride) 100 mls @ 100 mls/hr IVPB DAILY [facility] Norepinephrine Bitartrate 4 mg (/ Dextrose) 254 mls @ 9.52 mls/hr IV .Q24H [facility] ; 2.5 MCG/MIN PRN Reason: Protocol Last Admin: 08/28/16 18:53 Dose: 9.52 mls/hr Dobutamine HCl/Dextrose (Dobutamine/Dextrose 5% 500mg/250ml) 250 mls @ 16.67 mls/hr IV .Q15H [facility] PRN Reason: 5 MCG/KG/MIN Last Admin: 08/28/16 18:25 Dose: 16.67 mls/hr Sodium Chloride (Sodium Chloride 0.9%) 1,000 mls @ 200 mls/hr IV .Q5H [facility] Stop: 08/29/16 20:31 Last Admin: 08/29/16 06:38 Dose: 200 mls/hr Insulin Detemir (Levemir) [address] [facility] Insulin Detemir (Levemir) 40 units SC HS [facility] Insulin Human Lispro (Humalog) [address] [facility] Last Admin: 08/29/16 06:33 Dose: 24 units Senna/Docusate Sodium (Senokot S 50 Mg-8.6 Mg) 3 tab PO HS PRN PRN Reason: Constipation Sevelamer HCl (Renagel) 1,[address] [facility] Last Admin: 08/28/16 13:12 Dose: 1,600 mg Vitamin B Complex/Vit C/Folic Acid (Nephro-Ajay) 1 tab PO DAILY [facility] Last Admin: 08/28/16 08:41 Dose: 1 tab - Labs Labs: 08/29/16 05:45 08/29/16 05:45 PT 16.5 SECONDS (9.6-11.2) H 08/28/16 16:11 INR 1.59 (0.92-1.08) H 08/28/16 16:11 APTT 38.7 SECONDS (23.3-32.5) H 08/28/16 16:11
[2016-08-29] MEDS: Multivitamin Vitamin B Complex (Nephro-Vite) Tab PO SCH (09:53)
--- NOTE | 2016-08-29 10:16 | CP.PCM.PN ---
Subjective - Date & Time of Evaluation Date of Evaluation: 08/22/16 Time of Evaluation: 10:13 - Subjective Subjective: Hemodialysis put on hold yesterday after hypotensive episode and RECONCILING CLERK called. Patient receiving vasopressor at the moment and hemodialysis resumed this morning For approximately 3 hours We will try to remove about 1000 mL of fluid if possible as the blood pressure tolerated although very hard to get good bleeding go blood pressure because of the peripheral vascular advanced disease. Patient was seen on hemodialysis now however she is having chills at this moment and blood culture was ordered. Temperature is normal at this moment I am suspecting may be the catheter is infected although very hard to tell. Continue on antibiotics for now we will monitor tomorrow the dialysis if she developed chills again on hemodialysis and then we have to talk about changing the catheter. Objective - Vital Signs/Intake and Output Vital Signs (last 24 hours): Temp Pulse Resp BP Pulse Ox 98.9 F 124 H 11 L 95/44 L 92 L 08/29/16 08:00 08/29/16 08:00 08/29/16 08:00 08/29/16 08:00 08/29/16 08:00 Intake and Output: 08/29/16 08/29/16 06:59 18:59 Intake Total 2443 227 Balance 2443 227 - Medications Medications: Current Medications Acetaminophen (Tylenol 325mg Tab) 650 mg PO Q4 PRN PRN Reason: Fever >100.4 F Last Admin: 08/28/16 15:23 Dose: 650 mg Acetaminophen (Tylenol 325mg Tab) 650 mg PO Q4 PRN PRN Reason: Pain, moderate (4-7) Last Admin: 08/29/16 02:39 Dose: 650 mg Apixaban (Eliquis) 5 mg PO BID [facility] PRN Reason: Protocol Last Admin: 08/29/16 09:52 Dose: 5 mg Aspirin (Ecotrin) 81 mg PO DAILY [facility] Last Admin: 08/29/16 09:51 Dose: 81 mg Atorvastatin Calcium (Lipitor) 40 mg PO DAILY [facility] Last Admin: 08/29/16 09:53 Dose: 40 mg Cinacalcet (Sensipar) 30 mg PO DAILY [facility] Last Admin: 08/29/16 09:56 Dose: 30 mg Collagenase (Santyl) 1 applic TOP DAILY [facility] Last Admin: 08/28/16 09:27 Dose: 1 applic Docusate Sodium (Colace) 200 mg PO BID [facility] Last Admin: 08/29/16 09:51 Dose: 200 mg Hydromorphone HCl (Dilaudid) 2 mg PO Q4 PRN PRN Reason: Pain, severe (8-10) Last Admin: 08/28/16 08:33 Dose: 2 mg Piperacillin Sod/Tazobactam (Sod 2.25 gm/ Sodium Chloride) 100 mls @ 100 mls/ hr IVPB Q12 [facility] Last Admin: 08/28/16 20:48 Dose: 100 mls/hr Linezolid (Zyvox 600mg/300ml D5w) 300 mls @ 300 mls/hr IVPB Q12 [facility] Last Admin: 08/28/16 20:48 Dose: 300 mls/hr Meropenem 500 mg/ Sodium (Chloride) 100 mls @ 100 mls/hr IVPB DAILY [facility] Norepinephrine Bitartrate 4 mg (/ Dextrose) 254 mls @ 9.52 mls/hr IV .Q24H [facility] ; 2.5 MCG/MIN PRN Reason: Protocol Last Admin: 08/28/16 18:53 Dose: 9.52 mls/hr Dobutamine HCl/Dextrose (Dobutamine/Dextrose 5% 500mg/250ml) 250 mls @ 16.67 mls/hr IV .Q15H [facility] PRN Reason: 5 MCG/KG/MIN Last Admin: 08/28/16 18:25 Dose: 16.67 mls/hr Sodium Chloride (Sodium Chloride 0.9%) 1,000 mls @ 200 mls/hr IV .Q5H [facility] Stop: 08/29/16 20:31 Last Admin: 08/29/16 06:38 Dose: 200 mls/hr Insulin Detemir (Levemir) 20 units SC DAILY [facility] Insulin Detemir (Levemir) 40 units SC HS [facility] Insulin Human Lispro (Humalog) 24 units SC AC [facility] Last Admin: 08/29/16 06:33 Dose: 24 units Senna/Docusate Sodium (Senokot S 50 Mg-8.6 Mg) 3 tab PO HS PRN PRN Reason: Constipation Sevelamer HCl (Renagel) 1,600 mg PO TID [facility] Last Admin: 08/29/16 09:50 Dose: 1,600 mg Vitamin B Complex/Vit C/Folic Acid (Nephro-Ajay) 1 tab PO DAILY [facility] Last Admin: 08/29/16 09:53 Dose: 1 tab - Labs Labs: 08/29/16 05:45 08/29/16 05:45 PT 16.5 SECONDS (9.6-11.2) H 08/28/16 16:11 INR 1.59 (0.92-1.08) H 08/28/16 16:11 APTT 38.7 SECONDS (23.3-32.5) H 08/28/16 16:11 - Constitutional Appears: Chronically Ill - ENT Exam ENT Exam: Mucous Membranes Moist - Respiratory Exam Respiratory Exam: Rhonchi, NORMAL BREATHING PATTERN. absent: Chest Wall Tenderness - Cardiovascular Exam Cardiovascular Exam: Tachycardia. absent: Rubs - GI/Abdominal Exam GI & Abdominal Exam: Normal Bowel Sounds. absent: Guarding - Back Exam Back Exam: absent: CVA tenderness (L), CVA tenderness (R) - Neurological Exam Neurological Exam: Alert - Psychiatric Exam Psychiatric exam: Anxious Assessment and Plan (1) Cellulitis of leg Status: Acute (2) ESRD (end stage renal disease) Assessment & Plan: seen in ICU Patient was seen on hemodialysis now however she is having chills at this moment and blood culture was ordered. Temperature is normal at this moment I am suspecting may be the catheter is infected although very hard to tell. Continue on antibiotics for now we will monitor tomorrow the dialysis if she developed chills again on hemodialysis and then we have to talk about changing the catheter. That hemodialysis was canceled yesterday, therefore we going to give short hemodialysis treatment today and tomorrow if possible because of her condition that has not been stable Discussed with the resident and the dialysis nurse and the nurse in the floor. If blood pressure become problem and that cannot read correctly we will consider arterial line? Although this is going to add another line on the patient? So in summary patient has what appeared to be sepsis and perhaps Shock with hypotensive on vasopressor and antibiotics, advanced peripheral vascular disease and the right foot is not warm. The cellulitis of the right leg appeared to be better Patient also has abnormal EKG and high troponin has been follow-up by accounts receivable supervisor. Prognosis guarded Time is spent approximately 55 minutes Status: Acute
[2016-08-29] MEDS: DOBUTamine 500mg/250ml D5W 250 ML IV SCH (10:25)
--- NOTE | 2016-08-29 10:43 | VASCULAR ---
Procedure: Ultrasound and fluoroscopically placed Right upper extremity PICC. Clinical indication: Long-term IV antibiotics. Very poor IV access. Technique: The relative risks and indications of the procedure were explained to the patient and written informed consent obtained. The patient was placed supine on the angiographic table and the right arm prepped and draped in the usual sterile fashion. A tourniquet was applied to the right axilla. 1% lidocaine was used to anesthetize the skin and soft tissues at the puncture site above the elbow. The right basilic vein was punctured under direct ultrasound guidance with a micropuncture set. A permanent image was stored. A 0.018 guidewire was advanced centrally and used to measure the length to the axillary vein segment. The wire could not be extended centrally. A 4 Indonesian single-lumen PICC, size 30 cm, was advanced to the axillary vein segment under fluoroscopic guidance. The catheter was flushed and secured. The patient tolerated the procedure well. Postprocedure chest image was obtained. Impression: Ultrasound and fluoroscopically placed right upper extremity PICC. A 4 Indonesian single-lumen PICC, size 30 cm was advanced to the axillary vein segment. PICC ready for use.
--- NOTE | 2016-08-29 10:46 | CP.CCUPN ---
<Bri Groves - Last Filed: 08/29/16 15:46> CCU Subjective - Physician Review Subjective (Free Text): 08/29/16 7:30 46 year old female with PMHx of ESRD on HD (3 times a week) , HTN, DM type 2, Protein C/ Protein S deficiency ,Severe PVD, chronic disease anemia was admitted for RLE cellulites transfer to ICU on yesterday for code sepsis. Patient was seen and examined at bedside this morning. Patient is alert, awake and answers all the questions this morning. Patient stated she has been feeling fatigue and flu like symptoms for few days and sore throat as well. Patient received meropenem and amikacin on yesterday. Patient has low grade fever, tachycardia with HR of 125 bpm, BP of 111/53 RR 19 and Sat O2 98 % on nasal cannula. Patient is getting hemodialysis this morning however, patient was complaints of chills. Plan to HD about 1L today instead of 3L. Denies fever, SOB , chest pain, N/V/D and dizziness. CCU Objective - Vital Signs / Intake & Output Vital Signs (Last 4 hours): Vital Signs Temp Pulse Resp BP Pulse Ox 08/29/16 08:00 98.9 F 124 H 11 L 95/44 L 92 L Intake and Output (Last 8hrs): Intake & Output 08/28/16 08/29/16 08/29/16 22:59 06:59 14:59 Intake Total 327 2116 227 Balance 327 2116 227 Weight 257 lb 15.053 oz Intake: IV 227 1816 227 Intake, Piggyback 100 300 - Physical Exam Physical Exam Limitations: Positive for: Other (alert and awake) Head: Positive for: Atraumatic, Normocephalic Pupils: Positive for: PERRL Pharnyx: Positive for: ERYTHEMA Neck: Positive for: Normal Range of Motion. Negative for: JVD Respiratory/Chest: Positive for: Other (Right SC dialysis catheter) Cardiovascular: Positive for: Regular Rate and Rhythm, Normal S1, S2, Tachycardic Abdomen: Positive for: Normal Bowel Sounds, Other (soft and nontender) Back: Positive for: Paraspinal Tenderness Upper Extremity: Positive for: Other (s/p amputation 3rd finger on right hand and , s/p amputated 2nd, 3rd, 4th digits on left hand Weak radial pulse) Lower Extremity: Positive for: Other (Intact LLE BKA stump, Right ankle Charcot joint, dressing intact, Right toes missing 2nd toe) Neurological: Positive for: Speech Normal, Other (alert and awake) Skin: Positive for: Warm, Normal Color Psychiatric: Positive for: Alert, Oriented x 3, Normal Insight, Normal Concentration - Medications Active Medications: Active Medications Generic Name Dose Route Start Last Admin Trade Name Freq PRN Reason Stop Dose Admin Acetaminophen 650 mg 08/28/16 00:09 08/28/16 15:23 Tylenol 325mg Tab PO 650 mg Q4 PRN Administration Fever >100.4 F Acetaminophen 650 mg 08/28/16 00:12 08/29/16 02:39 Tylenol 325mg Tab PO 650 mg Q4 PRN Administration Pain, moderate (4-7) Apixaban 5 mg 08/28/16 09:15 08/29/16 09:52 Eliquis PO 5 mg BID JASPER Administration Protocol Aspirin 81 mg 08/28/16 09:00 08/29/16 09:51 Ecotrin PO 81 mg DAILY JASPER Administration Atorvastatin Calcium 40 mg 08/28/16 09:00 08/29/16 09:53 Lipitor PO 40 mg DAILY JASPER Administration Cinacalcet 30 mg 08/28/16 11:15 08/29/16 09:56 Sensipar PO 30 mg DAILY JASPER Administration Collagenase 1 applic 08/28/16 09:00 08/28/16 09:27 Santyl TOP 1 applic DAILY JASPER Administration Docusate Sodium 200 mg 08/28/16 09:00 08/29/16 09:51 Colace PO 200 mg BID JASPER Administration Hydromorphone HCl 2 mg 08/27/16 21:18 08/28/16 08:33 Dilaudid PO 2 mg Q4 PRN Administration Pain, severe (8-10) Piperacillin Sod/Tazobactam 100 mls @ 100 mls/hr 08/27/16 21:00 08/28/16 20:48 Sod 2.25 gm/ Sodium Chloride IVPB 100 mls/hr Q12 JASPER Administration Linezolid 300 mls @ 300 mls/hr 08/27/16 21:00 08/28/16 20:48 Zyvox 600mg/300ml D5w IVPB 300 mls/hr Q12 JASPER Administration Meropenem 500 mg/ Sodium 100 mls @ 100 mls/hr 08/29/16 09:00 Chloride IVPB DAILY JASPER Norepinephrine Bitartrate 4 mg 254 mls @ 9.52 mls/hr 08/28/16 18:15 08/28/16 18 :53 / Dextrose IV 9.52 mls/hr .Q24H JASPER Administration Protocol 2.5 MCG/MIN Dobutamine HCl/Dextrose 250 mls @ 16.67 mls/hr 08/28/16 18:15 08/29/16 10:25 Dobutamine/Dextrose 5% 500mg/250ml IV 16.67 mls/hr .Q15H JASPER Administration 5 MCG/KG/MIN Sodium Chloride 1,000 mls @ 200 mls/hr 08/28/16 20:30 08/29/16 06:38 Sodium Chloride 0.9% IV 08/29/16 20:31 200 mls/hr .Q5H JASPER Administration Vancomycin HCl 750 mg/ Sodium 250 mls @ 166.667 mls/hr 08/29/16 11:30 Chloride IVPB 08/29/16 12:59 ONCE ONE Insulin Detemir 20 units 08/29/16 10:00 Levemir SC DAILY JASPER Insulin Detemir 40 units 08/29/16 22:00 Levemir SC HS [facility] Insulin Human Lispro 24 units 08/29/16 07:30 08/29/16 06:33 Humalog SC 24 units AC JASPER Administration Senna/Docusate Sodium 3 tab 08/28/16 00:07 Senokot S 50 Mg-8.6 Mg PO HS PRN Constipation Sevelamer HCl 1,600 mg 08/28/16 11:11 08/29/16 09:50 Renagel PO 1,600 mg TID JASPER Administration Vitamin B Complex/Vit C/Folic Acid 1 tab 08/28/16 09:00 08/29/16 09:53 Nephro-Ajay PO 1 tab DAILY JASPER Administration - Patient Studies Lab Studies: Microbiology Studies 08/27/16 20:09 Gram Stain - Final Foot - Right Wound Culture - Preliminary Gram Negative Pardeep 08/27/16 17:45 Blood Culture - Preliminary Blood-Venous Gram Negative Pardeep Gram Stain - Final Lab Studies 08/29/16 08/29/16 08/28/16 Range/Units 05:55 05:45 21:11 WBC 14.1 H (4.8-10.8) K/uL RBC 3.27 L (3.80-5.20) Mil/uL Hgb 9.5 L (12.0-16.0) g/dL Hct 31.2 L (34.0-47.0) % MCV 95.4 (81.0-99.0) fl MCH 28.9 (27.0-31.0) pg MCHC 30.3 L (33.0-37.0) g/dL RDW 21.1 H (11.5-14.5) % Plt Count 124 L (130-400) K/uL MPV (7.2-11.7) fl Neut % (Auto) (50.0-75.0) % Lymph % (Auto) (20.0-40.0) % Trego % (Auto) (0.0-10.0) % Eos % (Auto) (0.0-4.0) % Baso % (Auto) (0.0-2.0) % Neut # (1.8-7.0) K/uL Lymph # (1.0-4.3) K/uL Trego # (0.0-0.8) K/uL Eos # (0.0-0.7) K/uL Baso # (0.0-0.2) K/uL PT (9.6-11.2) SECONDS INR (0.92-1.08) APTT (23.3-32.5) SECONDS pO2 (30-55) mm/Hg VBG pH (7.32-7.43) VBG pCO2 (40-60) mmHg VBG HCO3 mmol/L VBG Total CO2 (22-28) mmol/L VBG O2 Sat (Calc) (40-65) % VBG Base Excess (0.0-2.0) mmol/L VBG Potassium (3.6-5.2) mmol/L Glucose (65-105) mg/dL Lactate (0.7-2.1) mmol/L FiO2 % Blood Gas Comments Crit Value Called To Crit Value Called By Crit Value Read Back Blood Gas Notified Time Sodium 138 (132-148) mmol/l Potassium 4.4 (3.6-5.0) MMOL/L Chloride 96 L (98-107) mmol/L Carbon Dioxide 18 L (22-30) mmol/L Anion Gap 28 H (10-20) BUN 49 H (7-17) mg/dl Creatinine 9.4 H* (0.7-1.2) mg/dL Est GFR ( Amer) 5 Est GFR (Non-Af Amer) 5 POC Glucose (mg/dL) 387 H 356 H (65-110) mg/dL Random Glucose 373 H (65-105) mg/dL Hemoglobin A1c (4.2-6.5) % Lactic Acid 2.3 H (0.7-2.1) MMOL/L Calcium 8.7 (8.4-10.2) mg/dL Total Bilirubin 0.9 (0.2-1.3) mg/dl AST 205 H D (14-36) U/L ALT 127 H (9-52) U/L Alkaline Phosphatase 124 (38-126) U/L Troponin I 1.3800 H* (0.00-0.120) ng/mL Total Protein 7.1 (6.3-8.2) G/DL Albumin 3.1 L (3.5-5.0) g/dL Globulin 4.0 H (2.2-3.9) gm/dL Albumin/Globulin Ratio 0.8 L (1.0-2.1) Venous Blood Potassium (3.6-5.2) mmol/L 08/28/16 08/28/16 08/28/16 Range/Units 20:45 17:08 16:22 WBC (4.8-10.8) K/uL RBC (3.80-5.20) Mil/uL Hgb (12.0-16.0) g/dL Hct (34.0-47.0) % MCV (81.0-99.0) fl MCH (27.0-31.0) pg MCHC (33.0-37.0) g/dL RDW (11.5-14.5) % Plt Count (130-400) K/uL MPV (7.2-11.7) fl Neut % (Auto) (50.0-75.0) % Lymph % (Auto) (20.0-40.0) % Trego % (Auto) (0.0-10.0) % Eos % (Auto) (0.0-4.0) % Baso % (Auto) (0.0-2.0) % Neut # (1.8-7.0) K/uL Lymph # (1.0-4.3) K/uL Trego # (0.0-0.8) K/uL Eos # (0.0-0.7) K/uL Baso # (0.0-0.2) K/uL PT (9.6-11.2) SECONDS INR (0.92-1.08) APTT (23.3-32.5) SECONDS pO2 (30-55) mm/Hg VBG pH (7.32-7.43) VBG pCO2 (40-60) mmHg VBG HCO3 mmol/L VBG Total CO2 (22-28) mmol/L VBG O2 Sat (Calc) (40-65) % VBG Base Excess (0.0-2.0) mmol/L VBG Potassium (3.6-5.2) mmol/L Glucose (65-105) mg/dL Lactate (0.7-2.1) mmol/L FiO2 % Blood Gas Comments Crit Value Called To Crit Value Called By Crit Value Read Back Blood Gas Notified Time Sodium (132-148) mmol/l Potassium (3.6-5.0) MMOL/L Chloride (98-107) mmol/L Carbon Dioxide (22-30) mmol/L Anion Gap (10-20) BUN (7-17) mg/dl Creatinine (0.7-1.2) mg/dL Est GFR ( Amer) Est GFR (Non-Af Amer) POC Glucose (mg/dL) 459 H* 226 H (65-110) mg/dL Random Glucose (65-105) mg/dL Hemoglobin A1c (4.2-6.5) % Lactic Acid (0.7-2.1) MMOL/L Calcium (8.4-10.2) mg/dL Total Bilirubin (0.2-1.3) mg/dl AST (14-36) U/L ALT (9-52) U/L Alkaline Phosphatase (38-126) U/L Troponin I 1.2600 H* (0.00-0.120) ng/mL Total Protein (6.3-8.2) G/DL Albumin (3.5-5.0) g/dL Globulin (2.2-3.9) gm/dL Albumin/Globulin Ratio (1.0-2.1) Venous Blood Potassium (3.6-5.2) mmol/L 08/28/16 08/28/16 08/28/16 Range/Units 16:17 16:13 16:11 WBC 10.2 (4.8-10.8) K/uL RBC 3.40 L (3.80-5.20) Mil/uL Hgb 10.0 L (12.0-16.0) g/dL Hct 32.0 L (34.0-47.0) % MCV 94.2 (81.0-99.0) fl MCH 29.4 (27.0-31.0) pg MCHC 31.2 L (33.0-37.0) g/dL RDW 20.6 H (11.5-14.5) % Plt Count 121 L (130-400) K/uL MPV 10.2 (7.2-11.7) fl Neut % (Auto) 87.1 H (50.0-75.0) % Lymph % (Auto) 4.9 L (20.0-40.0) % Trego % (Auto) 7.8 (0.0-10.0) % Eos % (Auto) 0.0 (0.0-4.0) % Baso % (Auto) 0.2 (0.0-2.0) % Neut # 8.8 H (1.8-7.0) K/uL Lymph # 0.5 L (1.0-4.3) K/uL Trego # 0.8 (0.0-0.8) K/uL Eos # 0.0 (0.0-0.7) K/uL Baso # 0.0 (0.0-0.2) K/uL PT 16.5 H (9.6-11.2) SECONDS INR 1.59 H (0.92-1.08) APTT 38.7 H (23.3-32.5) SECONDS pO2 24 L (30-55) mm/Hg VBG pH 7.38 (7.32-7.43) VBG pCO2 42 (40-60) mmHg VBG HCO3 23.5 mmol/L VBG Total CO2 26.1 (22-28) mmol/L VBG O2 Sat (Calc) 43.4 (40-65) % VBG Base Excess -0.4 L (0.0-2.0) mmol/L VBG Potassium 4.7 (3.6-5.2) mmol/L Glucose 470 H* (65-105) mg/dL Lactate 3.6 H (0.7-2.1) mmol/L FiO2 28.0 % Blood Gas Comments Lactate 3.6 Crit Value Called To jose Avery Crit Value Called By 203 Crit Value Read Back Y Blood Gas Notified Time 1616 Sodium 135 133.0 (132-148) mmol/l Potassium 4.8 (3.6-5.0) MMOL/L Chloride 92 L 96.0 L (98-107) mmol/L Carbon Dioxide 23 (22-30) mmol/L Anion Gap 25 H (10-20) BUN 50 H (7-17) mg/dl Creatinine 9.1 H* (0.7-1.2) mg/dL Est GFR ( Amer) 6 Est GFR (Non-Af Amer) 5 POC Glucose (mg/dL) (65-110) mg/dL Random Glucose 493 H* (65-105) mg/dL Hemoglobin A1c (4.2-6.5) % Lactic Acid 3.7 H (0.7-2.1) MMOL/L Calcium 8.6 (8.4-10.2) mg/dL Total Bilirubin 0.8 (0.2-1.3) mg/dl AST 269 H (14-36) U/L ALT 127 H (9-52) U/L Alkaline Phosphatase 130 H (38-126) U/L Troponin I (0.00-0.120) ng/mL Total Protein 7.2 (6.3-8.2) G/DL Albumin 3.1 L (3.5-5.0) g/dL Globulin 4.2 H (2.2-3.9) gm/dL Albumin/Globulin Ratio 0.7 L (1.0-2.1) Venous Blood Potassium 4.7 (3.6-5.2) mmol/L 04/19/17 04/19/17 Range/Units 11:50 04:45 WBC (4.8-10.8) K/uL RBC (3.80-5.20) Mil/uL Hgb (12.0-16.0) g/dL Hct (34.0-47.0) % MCV (81.0-99.0) fl MCH (27.0-31.0) pg MCHC (33.0-37.0) g/dL RDW (11.5-14.5) % Plt Count (130-400) K/uL MPV (7.2-11.7) fl Neut % (Auto) (50.0-75.0) % Lymph % (Auto) (20.0-40.0) % Trego % (Auto) (0.0-10.0) % Eos % (Auto) (0.0-4.0) % Baso % (Auto) (0.0-2.0) % Neut # (1.8-7.0) K/uL Lymph # (1.0-4.3) K/uL Trego # (0.0-0.8) K/uL Eos # (0.0-0.7) K/uL Baso # (0.0-0.2) K/uL PT (9.6-11.2) SECONDS INR (0.92-1.08) APTT (23.3-32.5) SECONDS pO2 (30-55) mm/Hg VBG pH (7.32-7.43) VBG pCO2 (40-60) mmHg VBG HCO3 mmol/L VBG Total CO2 (22-28) mmol/L VBG O2 Sat (Calc) (40-65) % VBG Base Excess (0.0-2.0) mmol/L VBG Potassium (3.6-5.2) mmol/L Glucose (65-105) mg/dL Lactate (0.7-2.1) mmol/L FiO2 % Blood Gas Comments Crit Value Called To Crit Value Called By Crit Value Read Back Blood Gas Notified Time Sodium (132-148) mmol/l Potassium (3.6-5.0) MMOL/L Chloride (98-107) mmol/L Carbon Dioxide (22-30) mmol/L Anion Gap (10-20) BUN (7-17) mg/dl Creatinine (0.7-1.2) mg/dL Est GFR ( Amer) Est GFR (Non-Af Amer) POC Glucose (mg/dL) 228 H (65-110) mg/dL Random Glucose (65-105) mg/dL Hemoglobin A1c 11.0 H D (4.2-6.5) % Lactic Acid (0.7-2.1) MMOL/L Calcium (8.4-10.2) mg/dL Total Bilirubin (0.2-1.3) mg/dl AST (14-36) U/L ALT (9-52) U/L Alkaline Phosphatase (38-126) U/L Troponin I (0.00-0.120) ng/mL Total Protein (6.3-8.2) G/DL Albumin (3.5-5.0) g/dL Globulin (2.2-3.9) gm/dL Albumin/Globulin Ratio (1.0-2.1) Venous Blood Potassium (3.6-5.2) mmol/L Laboratory Results - last 24 hr 08/28/16 08/28/16 08/28/16 04:45 11:50 16:11 WBC 10.2 RBC 3.40 L Hgb 10.0 L Hct 32.0 L MCV 94.2 MCH 29.4 MCHC 31.2 L RDW 20.6 H Plt Count 121 L MPV 10.2 Neut % (Auto) 87.1 H Lymph % (Auto) 4.9 L Trego % (Auto) 7.8 Eos % (Auto) 0.0 Baso % (Auto) 0.2 Neut # 8.8 H Lymph # 0.5 L Trego # 0.8 Eos # 0.0 Baso # 0.0 PT 16.5 H INR 1.59 H APTT 38.7 H pO2 VBG pH VBG pCO2 VBG HCO3 VBG Total CO2 VBG O2 Sat (Calc) VBG Base Excess VBG Potassium Sodium Chloride Glucose Lactate FiO2 Blood Gas Comments Crit Value Called To Crit Value Called By Crit Value Read Back Blood Gas Notified Time Potassium Carbon Dioxide Anion Gap BUN Creatinine Est GFR ( Amer) Est GFR (Non-Af Amer) POC Glucose (mg/dL) 228 H Random Glucose Hemoglobin A1c 11.0 H D Lactic Acid 3.7 H Calcium Total Bilirubin AST ALT Alkaline Phosphatase Troponin I Total Protein Albumin Globulin Albumin/Globulin Ratio Venous Blood Potassium 08/28/16 08/28/16 08/28/16 16:13 16:17 16:22 WBC RBC Hgb Hct MCV MCH MCHC RDW Plt Count MPV Neut % (Auto) Lymph % (Auto) Trego % (Auto) Eos % (Auto) Baso % (Auto) Neut # Lymph # Trego # Eos # Baso # PT INR APTT pO2 24 L VBG pH 7.38 VBG pCO2 42 VBG HCO3 23.5 VBG Total CO2 26.1 VBG O2 Sat (Calc) 43.4 VBG Base Excess -0.4 L VBG Potassium 4.7 Sodium 133.0 135 Chloride 96.0 L 92 L Glucose 470 H* Lactate 3.6 H FiO2 28.0 Blood Gas Comments Lactate 3.6 Crit Value Called To jose Avery Crit Value Called By 203 Crit Value Read Back Y Blood Gas Notified Time 1616 Potassium 4.8 Carbon Dioxide 23 Anion Gap 25 H BUN 50 H Creatinine 9.1 H* Est GFR ( Amer) 6 Est GFR (Non-Af Amer) 5 POC Glucose (mg/dL) 226 H Random Glucose 493 H* Hemoglobin A1c Lactic Acid Calcium 8.6 Total Bilirubin 0.8 AST 269 H ALT 127 H Alkaline Phosphatase 130 H Troponin I Total Protein 7.2 Albumin 3.1 L Globulin 4.2 H Albumin/Globulin Ratio 0.7 L Venous Blood Potassium 4.7 08/28/16 08/28/16 08/28/16 17:08 20:45 21:11 WBC RBC Hgb Hct MCV MCH MCHC RDW Plt Count MPV Neut % (Auto) Lymph % (Auto) Trego % (Auto) Eos % (Auto) Baso % (Auto) Neut # Lymph # Trego # Eos # Baso # PT INR APTT pO2 VBG pH VBG pCO2 VBG HCO3 VBG Total CO2 VBG O2 Sat (Calc) VBG Base Excess VBG Potassium Sodium Chloride Glucose Lactate FiO2 Blood Gas Comments Crit Value Called To Crit Value Called By Crit Value Read Back Blood Gas Notified Time Potassium Carbon Dioxide Anion Gap BUN Creatinine Est GFR ( Amer) Est GFR (Non-Af Amer) POC Glucose (mg/dL) 459 H* 356 H Random Glucose Hemoglobin A1c Lactic Acid Calcium Total Bilirubin AST ALT Alkaline Phosphatase Troponin I 1.2600 H* Total Protein Albumin Globulin Albumin/Globulin Ratio Venous Blood Potassium 08/29/16 08/29/16 05:45 05:55 WBC 14.1 H RBC 3.27 L Hgb 9.5 L Hct 31.2 L MCV 95.4 MCH 28.9 MCHC 30.3 L RDW 21.1 H Plt Count 124 L MPV Neut % (Auto) Lymph % (Auto) Trego % (Auto) Eos % (Auto) Baso % (Auto) Neut # Lymph # Trego # Eos # Baso # PT INR APTT pO2 VBG pH VBG pCO2 VBG HCO3 VBG Total CO2 VBG O2 Sat (Calc) VBG Base Excess VBG Potassium Sodium 138 Chloride 96 L Glucose Lactate FiO2 Blood Gas Comments Crit Value Called To Crit Value Called By Crit Value Read Back Blood Gas Notified Time Potassium 4.4 Carbon Dioxide 18 L Anion Gap 28 H BUN 49 H Creatinine 9.4 H* Est GFR ( Amer) 5 Est GFR (Non-Af Amer) 5 POC Glucose (mg/dL) 387 H Random Glucose 373 H Hemoglobin A1c Lactic Acid 2.3 H Calcium 8.7 Total Bilirubin 0.9 AST 205 H D ALT 127 H Alkaline Phosphatase 124 Troponin I 1.3800 H* Total Protein 7.1 Albumin 3.1 L Globulin 4.0 H Albumin/Globulin Ratio 0.8 L Venous Blood Potassium EKG/Cardiology Studies: Cardiology / EKG Studies 08/29/16 09:00 EKG [ELECTROCARDIOGRAM] Routine Comment: Mode Of Transportation: Reason For Exam: r/o AMI Fingerstick Blood Sugar Results: 387 Review of Systems - Review of Systems All systems: reviewed and no additional remarkable complaints except - Constitutional Constitutional: Chills, Weakness, Malaise - Cardiovascular Cardiovascular: As Per HPI, Rapid Heart Rate - Respiratory Respiratory: As Per HPI, Cough. absent: Dyspnea on Exertion - Gastrointestinal Gastrointestinal: absent: Abdominal Pain, Nausea, Vomiting Critical Care Progress Note - Nutrition Nutrition: Nutrition Category Date Time Status Renal Diet [DIET] Diets 08/28/16 Breakfast Active Assessment/Plan (1) Sepsis associated hypotension Current Visit: Yes Status: Acute Comment: -improved with BP, low grade fever and still tachy -leukocytosis 14.1 -right foot wound culture showed gram negative pardeep (08/27/2016) -blood culture prelim showed gram negative pardeep( 08/27/2016) trending down with lactic acid:3.7->2.3 -repeat blood culture this morning -ordered rapid strep and influenza -continue with zosyn, zyvox and meropenem -ID recommended give another dose of vancomycin 750mg and amikacin 250mg post HD -continue with dobutamin drip (5mcg/kg/min) -echo report is still pending -monitor vitals (2) Bacteremia due to Gram-negative bacteria Current Visit: Yes Status: Acute Comment: -etiology from permacath vs foot infectio possible from osteomyelitis? -leukocytosis 14.1 -blood culture from port prelim showed gram negative pardeep -repeat 1x blood cultre due to experience chills during HD -another dose of vancomycin and amikacin post HD. -pending Echo report -monitor cbc (3) Troponin level elevated Current Visit: Yes Status: Acute Comment: -asymptomatic -etiology from renal failure ESRD rather than cardiac -troponin 1.26->1.39 -EKG showed there is some ST elevation however need to rule out pericarditis per -official echo report is pending -f/u troponin (4) ESRD (end stage renal disease) Current Visit: Yes Status: Acute Comment: -HD (MWF) however, HD was withheld on yesterday due to hypotension -HD today -BUN/Cr:49/9.4 -continue with renagel 1600mg TID and sensipar 30mg daily. -monitor BMP (5) Cellulitis of leg Current Visit: Yes Status: Acute Comment: -wound culture showed gram negative pardeep. -continue with zosyn. 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 Ella Groves; and I agree with her outline of plans and management documented below as discussed on AM rounds reflecting my review of all applicable clinical data, and participation in the care of the patient throughout the day in ICU; today, August 29, 2016.
[2016-08-29] MEDS: Insulin Detemir 100 Units/ml Inj SC SCH ×2 (11:33→21:15)
[2016-08-29] MEDS: Linezolid 600 mg in D5W 300 ml 300 ML IVPB SCH ×2 (11:38→21:14)
--- NOTE | 2016-08-29 11:59 | CARD ---
APPROVED REPORT EXAM: Two-dimensional and M-mode echocardiogram with Doppler and color Doppler. Other Information Quality : Technically LimitedRhythm : INDICATION Abnormal EKG/Arrhythmia 2D DIMENSIONS IVSd1.28 (0.7-1.1cm)LVDd4.46 (3.9-5.9cm) PWd1.14 (0.7-1.1cm)IVSs1.00 (0.8-1.2cm) LVDs3.53 (2.5-4.0cm)FS (%) 20.9 % PWs1.45 (0.8-1.2cm)LVEF (%)45.0 (>50%) M-Mode DIMENSIONS Left Atrium (MM)2.95 (2.5-4.0cm)IVSd0.85 (0.7-1.1cm) Aortic Root2.72 (2.2-3.7cm)LVDd4.08 (4.0-5.6cm) Aortic Cusp Exc.1.70 (1.5-2.0cm)PWd1.36 (0.7-1.1cm) IVSs1.25 cmFS (%) 38 % LVDs2.51 (2.0-3.8cm)PWs1.59 cm LVEF (%)50 (>50%) Mitral Valve MV E Idywikyt94.0cm/sMV A Cwdtjbxe83.9cm/sE/A ratio1.0 TDI Lateral E' Peak V12.55cm/sMedial E' Peak V14.10cm/sE/Lateral E'1.1 E/Medial E'1.0 Tricuspid Valve TR Peak Ecffbolf940td/sTR Peak Gr.[id number] LEFT VENTRICLE The left ventricle is normal size. There is normal left ventricular wall thickness. The left ventricular function is normal. The left ventricular ejection fraction is 55-60% There is normal LV segmental wall motion. Transmitral Doppler flow pattern is Grade III-reversible restrictive diastolic dysfunction. No left ventricle thrombus noted on this study. There is no ventricular septal defect visualized. There is no left ventricular aneurysm. There is no mass noted in the left ventricle. RIGHT VENTRICLE The right ventricle is mildly dilated. There is normal right ventricular wall thickness. Systolic function is mildly reduced. ATRIA The left atrium size is normal. The right atrium size is normal. The interatrial septum is intact with no evidence for an atrial septal defect. AORTIC VALVE The aortic valve is normal in structure and function. No aortic regurgitation is present. There is no aortic valvular stenosis. There is no aortic valvular vegetation. MITRAL VALVE The mitral valve is normal in structure and function. There is no evidence of mitral valve prolapse. There is no mitral valve stenosis. There is no mitral valve regurgitation noted. TRICUSPID VALVE The tricuspid valve is normal in structure and function. There is mild tricuspid regurgitation. Right ventricular systolic pressure is estimated at 30-40 mmHg. There is no tricuspid valve prolapse or vegetation. There is no tricuspid valve stenosis. PULMONIC VALVE The pulmonary valve is normal in structure and function. There is no pulmonic valvular regurgitation. There is no pulmonic valvular stenosis. GREAT VESSELS The aortic root is normal in size. The ascending aorta is normal in size. The IVC is normal in size and collapses >50% with inspiration. PERICARDIAL EFFUSION The pericardium appears normal. There is no pleural effusion. <Conclusion> Technically Difficult Study due to patient habitus ( wt 245 lbs) Normal LV Systolic Function Mildly Enlarged Right Ventricle Mild RV Hypokinesis
--- NOTE | 2016-08-29 12:48 | PQF GENQUE ---
Dr. Thomas, (1) In agreement :Sepsis: POA? (2) If in agreement with the diagnosis of Sepsis: After work up complete and if known: the etiology of Sepsis: ie. due to right leg cellulitus or line Sepsis or multifactorial etiology OR: Disagree OR:Unable to determine OR:Other explanation of clinical findings 08/28 Podiatry note: admitted for sepsis, right heel ulceration, red/swollen/ painful right calf. 08/28 Attending: Patient became hypotensive (80/40), tachycardic (130) and obtunded earlier this afternoon. Temperature chris to 103 degrees. 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 Continue on antibiotics for now we will monitor tomorrow the dialysis if she developed chills again on hemodialysis and then we have to talk about changing the catheter. This form is a permanent part of the medical record Clarification of your documentation is requested to better reflect the severity of illness and intensity of treatment of your patient. Indicators present [] Specify: [] [] Specify: [] [] Specify: [] [] Specify: [] Location in the medical record that reflects the above clinical findings: [] Treatment Provided: [] PHYSICIAN'S RESPONSE Based on your medical judgment of the clinical indicators outlined above please clarify the following: [] Practitioner response [] If unable to determine, please check the box, sign and date. Present On Admission (POA) Indicator: [] Present at the time of admission [] Not present at the time of admission [] Clinically Undetermined In responding to this query, please exercise your independent professional judgment. The fact that a question is asked does not imply that any particular answer is desired or expected. Thank you for your clarification on this documentation. If you have any questions please call. * Thank you, Sandra Reina RN BSN ext. #[phone] MTDD
--- NOTE | 2016-08-29 13:41 | CP.PCM.PN ---
Subjective - Date & Time of Evaluation Date of Evaluation: 08/29/16 Time of Evaluation: 13:29 - Subjective Subjective: SIRS: Gram negative bacteremia - BOTH LEFT FOOT AND BLOOD GROWING GRAM NEG RODS. Chills during hemodialysis make us suspect the Permacath may be infected. Blood culture drawn through Permacath. We will see how dialysis goes tomorrow. (see Dr. Guadarrama's progress note today) Patient looks better . Blood pressure is low but being maintained on IV fluids - with dobutamine for cardiac support. Dr. Shepard urges continued volume support, which is being achieved by the iv fluids that accompany the various antibiotics. The ongoing IV normal saline has been discontinued. See Dr. Richard Shepard's note regarding cardiac status. Diabetes is being controlled on a new regimen of twice daily Levemir and tid Novolog - as per Dr. Ambrose (see orders) Wound care right heel is being provided daily by podiatrists. R foot is cold. I fear she may need a right BK amputation. Patient complains of severe lumbosacral pain, radiating down the right leg. To get CT of L-S spine and right hip. Care discussed with intensivists - Melisa Bojorquez and Germain. Objective - Vital Signs/Intake and Output Vital Signs (last 24 hours): Temp Pulse Resp BP Pulse Ox 99.2 F 120 H 20 98/48 L 97 08/29/16 12:00 08/29/16 12:00 08/29/16 12:00 08/29/16 12:00 08/29/16 12:00 Intake and Output: 08/29/16 08/29/16 06:59 18:59 Intake Total 2443 454 Balance 2443 454 - Medications Medications: Current Medications Acetaminophen (Tylenol 325mg Tab) 650 mg PO Q4 PRN PRN Reason: Fever >100.4 F Last Admin: 08/28/16 15:23 Dose: 650 mg Acetaminophen (Tylenol 325mg Tab) 650 mg PO Q4 PRN PRN Reason: Pain, moderate (4-7) Last Admin: 08/29/16 02:39 Dose: 650 mg Apixaban (Eliquis) 5 mg PO BID [facility] PRN Reason: Protocol Last Admin: 08/29/16 09:52 Dose: 5 mg Aspirin (Ecotrin) 81 mg PO DAILY [facility] Last Admin: 08/29/16 09:51 Dose: 81 mg Atorvastatin Calcium (Lipitor) 40 mg PO DAILY [facility] Last Admin: 08/29/16 09:53 Dose: 40 mg Cinacalcet (Sensipar) 30 mg PO DAILY [facility] Last Admin: 08/29/16 09:56 Dose: 30 mg Collagenase (Santyl) 1 applic TOP DAILY [facility] Last Admin: 08/28/16 09:27 Dose: 1 applic Docusate Sodium (Colace) 200 mg PO BID [facility] Last Admin: 08/29/16 09:51 Dose: 200 mg Piperacillin Sod/Tazobactam (Sod 2.25 gm/ Sodium Chloride) 100 mls @ 100 mls/ hr IVPB Q12 [facility] Last Admin: 08/29/16 11:48 Dose: 100 mls/hr Linezolid (Zyvox 600mg/300ml D5w) 300 mls @ 300 mls/hr IVPB Q12 [facility] Last Admin: 08/29/16 11:38 Dose: 300 mls/hr Meropenem 500 mg/ Sodium (Chloride) 100 mls @ 100 mls/hr IVPB DAILY [facility] Norepinephrine Bitartrate 4 mg (/ Dextrose) 254 mls @ 9.52 mls/hr IV .Q24H [facility] ; 2.5 MCG/MIN PRN Reason: Protocol Last Admin: 08/28/16 18:53 Dose: 9.52 mls/hr Dobutamine HCl/Dextrose (Dobutamine/Dextrose 5% 500mg/250ml) 250 mls @ 16.67 mls/hr IV .Q15H [facility] PRN Reason: 5 MCG/KG/MIN Last Admin: 08/29/16 10:25 Dose: 16.67 mls/hr Sodium Chloride (Sodium Chloride 0.9%) 1,000 mls @ 200 mls/hr IV .Q5H [facility] Stop: 08/29/16 20:31 Last Admin: 08/29/16 11:47 Dose: 200 mls/hr Amikacin Sulfate 250 mg/ (Sodium Chloride) 101 mls @ 100.609 mls/hr IVPB ONCE ONE Stop: 08/29/16 14:00 Insulin Detemir (Levemir) 20 units SC DAILY [facility] Last Admin: 08/29/16 11:33 Dose: 20 units Insulin Detemir (Levemir) 40 units SC [facility] Insulin Human Lispro (Humalog) 24 units SC AC [facility] Last Admin: 08/29/16 06:33 Dose: 24 units Senna/Docusate Sodium (Senokot S 50 Mg-8.6 Mg) 3 tab PO HS PRN PRN Reason: Constipation Sevelamer HCl (Renagel) 1,600 mg PO TID [facility] Last Admin: 08/29/16 09:50 Dose: 1,600 mg Vitamin B Complex/Vit C/Folic Acid (Nephro-Ajay) 1 tab PO DAILY [facility] Last Admin: 08/29/16 09:53 Dose: 1 tab - Labs Labs: 08/29/16 05:45 08/29/16 05:45 PT 16.5 SECONDS (9.6-11.2) H 08/28/16 16:11 INR 1.59 (0.92-1.08) H 08/28/16 16:11 APTT 38.7 SECONDS (23.3-32.5) H 08/28/16 16:11 Microbiology 08/27/16 20:09 Foot - Right Gram Stain - Final 08/27/16 20:09 Foot - Right Wound Culture - Preliminary Gram Negative Pardeep 08/27/16 17:45 Blood-Venous Blood Culture - Preliminary Gram Negative Pardeep 08/27/16 17:45 Blood-Venous Gram Stain - Final - Constitutional Appears: Other (Alert and oriented and eating with gusto!) - Head Exam Head Exam: NORMAL INSPECTION - Eye Exam Eye Exam: Normal appearance - ENT Exam ENT Exam: Mucous Membranes Moist - Neck Exam Additional comments: Right subclavian Permacath intact. - Respiratory Exam Respiratory Exam: NORMAL BREATHING PATTERN Additional comments: Some bibasilar atelectatic crackles. - Cardiovascular Exam Cardiovascular Exam: REGULAR RHYTHM - GI/Abdominal Exam GI & Abdominal Exam: Soft, Normal Bowel Sounds - Extremities Exam Additional comments: R toes cold and no palpable DP pulse. Dressing intact. R upper arm PICC line intact. - Back Exam Back Exam: muscle spasm, NORMAL INSPECTION, tenderness Additional comments: Lower lumbar paraspinal tenderness. Pain in L anterolateral leg when moves back. - Neurological Exam Neurological Exam: Alert, Awake, Oriented x3 - Skin Additional comments: Except as noted above, skin is normal. - Additional Findings Additional findings: CHEST X-RAY DONE THIS MORNING IS REPORTED SHOWING RLL INFILTRATE, BUT THIS MAY BE FLUID??? atlectasis ??? to be repeated tomorrow. Assessment and Plan (1) SIRS (systemic inflammatory response syndrome) Assessment & Plan: Better blood pressures, but still precarious. Continues with IV hydration and dobutamine. On multiple IV antibiotics to cover for bacteremia, possible osteomyelitis right heel, and possible Permacath line infection. Status: Acute (2) Cellulitis of leg Assessment & Plan: Improved Status: Acute (3) Ulcer of right heel Assessment & Plan: Wound care continues - must rule out osteomyelitis - note air in soft tissues of right heel... Status: Acute (4) DM type 2 (diabetes mellitus, type 2) Assessment & Plan: Coming under better control Status: Chronic (5) Coagulopathy Assessment & Plan: Continue po Eliquis and aspirin Status: Chronic (6) ESRD (end stage renal disease) on dialysis Assessment & Plan: Receiving limited but daily hemodialysis to prevent excessive fluid loss and hypotension. Status: Chronic (7) Hyperlipidemia Status: Acute (8) Peripheral arterial occlusive disease Assessment & Plan: Cold right toes is an ominous sign. This and possible heel osteomyelitis point in the direction of BK amputation, but I have not raised this subject with the patient as of yet. Status: Acute (9) Back pain Assessment & Plan: This would appear to be a L-S radiculopathy, but it is unclear. Will get CT of L-S spine and right hip. Will try Lidoderm patch for pain. Status: Acute
--- NOTE | 2016-08-29 13:42 | RAD ---
HISTORY: Sepsis. Portable upright study 04:30. COMPARISON: 08/27/2016. FINDINGS: LUNGS: New right lower lobe infiltrate. PLEURA: No significant pleural effusion identified, no pneumothorax apparent. CARDIOVASCULAR: No radiographic findings to suggest acute or significant cardiovascular disease. Venous access catheter in stable, satisfactory position. OSSEOUS STRUCTURES: No significant abnormalities. VISUALIZED UPPER ABDOMEN: Normal. OTHER FINDINGS: None. IMPRESSION: No active disease. New right lower lobe infiltrate.
[2016-08-29] MEDS: Meropenem 500 MG in Sodium Chloride 0.9% 100 ML IVPB SCH (14:34)
--- NOTE | 2016-08-29 15:55 | PN ---
DATE: 08/29/2016 LOCATION: ICU room 433 This is a 46-year-old female with uncontrolled type 2 insulin-requiring diabetes that transferred to ICU because of bacteremia and septic shock and is now being followed closely for metabolic management . Her glycemic levels are fluctuating but much improved at this time, and the latest glucose levels hav e ranged from 189-387 mg/dL. Her latest chemistry showed a BUN of 49, sodium 138, potassium 4.4, chl oride 96, CO2 18, glucose 373 and creatinine 9.4. Her troponin levels are 1.65. Lactic acid is 2.3. Her hemoglobin A1c is 11.0 as noted and indicative of suboptimal metabolic control of her diabetic condition even prior to this admission. However, with the intercurrent right leg cellulitis and mainor re vasculopathy, which are all physical stressors to the body with complicating bacteremia and septic shock, all these factors could increase insulin resistance and further impair glucose tolerance ther eof. So at this time, will modify her basal and bolus insulin regimen and increase the Humalog to 24 units subQ t.i.d. before meals started this morning. Will also continue her Levemir given at a b.i.d. dos ing of 20 units at 10 a.m. and 40 units at 10 p.m. as ordered. Will modify the coverage scale to obv iate hypoglycemia and detailed orders have been given. Will obtain serial chemistries and supplement accordingly as needed. Will follow and advise accordingly. Irene Ambrose MD cc: [phone] TT: 08/29/2016 15:54:45 Confirmation # [id number] Dictation # [id number] [email or web address]
[2016-08-29] MEDS: Lidocaine 5% Patch TD SCH (16:30)
--- NOTE | 2016-08-29 17:00 | CP.PCM.PN ---
Subjective - Date & Time of Evaluation Date of Evaluation: 08/29/16 Time of Evaluation: 17:00 - Subjective Subjective: ID NOTE LOW GRADE TEMP MOST CULTURES ARE STILL PENDING AWAITING IDENTIFICATION OF GRAM NEG IN BLOOD AND WOUND DISCUSSED C BOLA AND SAUNDRA Objective - Vital Signs/Intake and Output Vital Signs (last 24 hours): Temp Pulse Resp BP Pulse Ox 99.2 F 129 H 16 78/59 L 95 08/29/16 12:00 08/29/16 15:00 08/29/16 15:00 08/29/16 15:00 08/29/16 15:00 Intake and Output: 08/29/16 08/29/16 06:59 18:59 Intake Total 2443 1235 Balance 2443 1235 - Medications Medications: Current Medications Acetaminophen (Tylenol 325mg Tab) 650 mg PO Q4 PRN PRN Reason: Fever >100.4 F Last Admin: 08/28/16 15:23 Dose: 650 mg Acetaminophen (Tylenol 325mg Tab) 650 mg PO Q4 PRN PRN Reason: Pain, moderate (4-7) Last Admin: 08/29/16 02:39 Dose: 650 mg Apixaban (Eliquis) 5 mg PO BID [facility] PRN Reason: Protocol Last Admin: 08/29/16 09:52 Dose: 5 mg Aspirin (Ecotrin) 81 mg PO DAILY [facility] Last Admin: 08/29/16 09:51 Dose: 81 mg Atorvastatin Calcium (Lipitor) 40 mg PO DAILY [facility] Last Admin: 08/29/16 09:53 Dose: 40 mg Cinacalcet (Sensipar) 30 mg PO DAILY [facility] Last Admin: 08/29/16 09:56 Dose: 30 mg Collagenase (Santyl) 1 applic TOP DAILY [facility] Last Admin: 08/29/16 09:00 Dose: 1 applic Docusate Sodium (Colace) 200 mg PO BID [facility] Last Admin: 08/29/16 09:51 Dose: 200 mg Piperacillin Sod/Tazobactam (Sod 2.25 gm/ Sodium Chloride) 100 mls @ 100 mls/ hr IVPB Q12 [facility] Last Admin: 08/29/16 11:48 Dose: 100 mls/hr Linezolid (Zyvox 600mg/300ml D5w) 300 mls @ 300 mls/hr IVPB Q12 [facility] Last Admin: 08/29/16 11:38 Dose: 300 mls/hr Meropenem 500 mg/ Sodium (Chloride) 100 mls @ 100 mls/hr IVPB DAILY [facility] Last Admin: 08/29/16 14:34 Dose: 100 mls/hr Norepinephrine Bitartrate 4 mg (/ Dextrose) 254 mls @ 9.52 mls/hr IV .Q24H [facility] ; 2.5 MCG/MIN PRN Reason: Protocol Last Admin: 08/28/16 18:53 Dose: 9.52 mls/hr Dobutamine HCl/Dextrose (Dobutamine/Dextrose 5% 500mg/250ml) 250 mls @ 16.67 mls/hr IV .Q15H [facility] PRN Reason: 5 MCG/KG/MIN Last Admin: 08/29/16 10:25 Dose: 16.67 mls/hr Insulin Detemir (Levemir) 20 units SC DAILY [facility] Last Admin: 08/29/16 11:33 Dose: 20 units Insulin Detemir (Levemir) 40 units SC HS [facility] Insulin Human Lispro (Humalog) 24 units SC AC [facility] Last Admin: 08/29/16 12:30 Dose: Not Given Lidocaine (Lidoderm) 1 ea TD DAILY [facility] Senna/Docusate Sodium (Senokot S 50 Mg-8.6 Mg) 3 tab PO HS PRN PRN Reason: Constipation Sevelamer HCl (Renagel) 1,600 mg PO TID [facility] Last Admin: 08/29/16 14:36 Dose: 1,600 mg Vitamin B Complex/Vit C/Folic Acid (Nephro-Ajay) 1 tab PO DAILY [facility] Last Admin: 08/29/16 09:53 Dose: 1 tab - Labs Labs: 08/29/16 05:45 08/29/16 05:45 PT 16.5 SECONDS (9.6-11.2) H 08/28/16 16:11 INR 1.59 (0.92-1.08) H 08/28/16 16:11 APTT 38.7 SECONDS (23.3-32.5) H 08/28/16 16:11
[2016-08-29] MEDS: Albuterol-Ipratrop 3 mg / 0.5 (3 ml) UD INH PRN ×2 (18:40→21:29)
[2016-08-29] MEDS: Sodium Chloride 0.9% 250 ML IV SCH (23:30)
[2016-08-30] MEDS: Sodium Chloride 0.9% 250 ML IV SCH ×2 (00:50→05:36)
[2016-08-30] MEDS: DOBUTamine 500mg/250ml D5W 250 ML IV SCH ×2 (01:58→16:53)
[2016-08-30 05:28] LABS: TROPONIN I 1.93 ng/mL (0.00-0.120)
--- NOTE | 2016-08-30 08:10 | CP.CCUPN ---
<Bri Groves - Last Filed: 08/30/16 16:03> CCU Subjective - Physician Review Subjective (Free Text): 08/30/16 7:30 46 year old female with PMHx of ESRD on HD (3 times a week) , HTN, DM type 2, Protein C/ Protein S deficiency ,Severe PVD, chronic disease anemia was admitted for RLE cellulites transfer to ICU for code sepsis. Patient was seen and examined at bedside this morning. Patient is alert, awake and answers all the questions this morning. Patient also complaints of food stuck her stomach after her meals since 2 days ago. Per nurse patient had similar to syncopal episodes where patient was not responsive with eye open and staring on ceiling last for less than 1 minutes overnight without any witness seizing activities. Lactic acid was 1.5 this morning. Patient has afebrile, tachycardia with HR of 127 bpm, BP of 105/55 RR 19 and Sat O2 99 % on nasal cannula. Blood and wound culture showed E.Coli with all the sensitivities.Patient had few episodes of vomiting this morning. Patient also complaints of constipation since yesterday night. Patient is schedule for hemodialysis this morning. Plan to HD about 1.5 L today. Denies fever, SOB, chest pain, diarrhea, headache and dizziness. CCU Objective - Vital Signs / Intake & Output Vital Signs (Last 4 hours): Vital Signs Pulse Resp BP Pulse Ox 08/30/16 06:00 127 H 23 96/71 L 98 08/30/16 05:00 128 H 23 87/53 L 94 L Intake and Output (Last 8hrs): Intake & Output 08/29/16 08/30/16 08/30/16 22:59 06:59 14:59 Intake Total 578 1169 Output Total 1400 Balance -822 1169 Intake: IV 68 750 Intake, Piggyback 450 419 Oral 60 Output: Ultrafiltrate 1400 - Physical Exam Head: Positive for: Atraumatic, Normocephalic Pupils: Positive for: PERRL Pharnyx: Positive for: ERYTHEMA Neck: Positive for: Normal Range of Motion. 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 and , s/p amputated 2nd, 3rd, 4th digits on left hand Weak radial pulse) Lower Extremity: Positive for: Other (Intact LLE BKA stump, Right ankle Charcot joint, dressing intact, Right toes missing 2nd toe) Neurological: Positive for: Speech Normal, Other (alert and awake) Skin: Positive for: Warm, Normal Color Psychiatric: Positive for: Alert, Oriented x 3, Normal Insight, Normal Concentration - Medications Active Medications: Active Medications Generic Name Dose Route Start Last Admin Trade Name Freq PRN Reason Stop Dose Admin Acetaminophen 650 mg 08/28/16 00:09 08/28/16 15:23 Tylenol 325mg Tab PO 650 mg Q4 PRN Administration Fever >100.4 F Acetaminophen 650 mg 08/28/16 00:12 08/29/16 21:58 Tylenol 325mg Tab PO 650 mg Q4 PRN Administration Pain, moderate (4-7) Albuterol/Ipratropium 3 ml 08/29/16 18:39 08/29/16 21:29 Duoneb 3 Mg/0.5 Mg (3 Ml) Ud INH 3 ml RQ4 PRN Administration Shortness of Breath Apixaban 5 mg 08/28/16 09:15 08/29/16 17:06 Eliquis PO 5 mg BID [facility] Administration Protocol Aspirin 81 mg 08/28/16 09:00 08/29/16 09:51 Ecotrin PO 81 mg DAILY [facility] Administration Atorvastatin Calcium 40 mg 08/28/16 09:00 08/29/16 09:53 Lipitor PO 40 mg DAILY [facility] Administration Cinacalcet 30 mg 08/28/16 11:15 08/29/16 09:56 Sensipar PO 30 mg DAILY [facility] Administration Collagenase 1 applic 08/28/16 09:00 08/29/16 09:00 Santyl TOP 1 applic DAILY [facility] Administration Docusate Sodium 200 mg 08/28/16 09:00 08/29/16 17:12 Colace PO 200 mg BID [facility] Administration Piperacillin Sod/Tazobactam 100 mls @ 100 mls/hr 08/27/16 21:00 08/29/16 20:12 Sod 2.25 gm/ Sodium Chloride IVPB 100 mls/hr Q12 [facility] Administration Linezolid 300 mls @ 300 mls/hr 08/27/16 21:00 08/29/16 21:14 Zyvox 600mg/300ml D5w IVPB 300 mls/hr Q12 [facility] Administration Meropenem 500 mg/ Sodium 100 mls @ 100 mls/hr 08/29/16 09:00 08/29/16 14:34 Chloride IVPB 100 mls/hr DAILY [facility] Administration Dobutamine HCl/Dextrose 250 mls @ 16.67 mls/hr 08/28/16 18:15 08/30/16 01:58 Dobutamine/Dextrose 5% 500mg/250ml IV 16.67 mls/hr .Q15H [facility] Administration 5 MCG/KG/MIN Sodium Chloride 250 mls @ 999 mls/hr 08/29/16 23:30 08/30/16 05:36 Sodium Chloride 0.9% IV 999 mls/hr .Q16M [facility] Administration Insulin Detemir 20 units 08/29/16 10:00 08/29/16 11:33 Levemir SC 20 units DAILY [facility] Administration Insulin Detemir 40 units 08/29/16 22:00 08/29/16 21:15 Levemir SC 40 units HS [facility] Administration Insulin Human Lispro 24 units 08/29/16 07:30 08/29/16 17:06 Humalog SC 24 units AC [facility] Administration Lidocaine 1 ea 08/29/16 13:30 08/29/16 16:30 Lidoderm TD 1 ea DAILY [facility] Administration Ondansetron HCl 4 mg 08/29/16 19:00 08/29/16 19:39 Zofran Inj IVP 4 mg Q6 PRN Administration Nausea/Vomiting Senna/Docusate Sodium 3 tab 08/28/16 00:07 Senokot S 50 Mg-8.6 Mg PO HS PRN Constipation Sevelamer HCl 1,600 mg 08/28/16 11:11 08/29/16 17:11 Renagel PO 1,600 mg TID [facility] Administration Vitamin B Complex/Vit C/Folic Acid 1 tab 08/28/16 09:00 08/29/16 09:53 Nephro-Ajay PO 1 tab DAILY [facility] Administration - Patient Studies Lab Studies: Microbiology Studies 08/28/16 16:11 Blood Culture - Final Blood-Thru Central Line Escherichia Coli Gram Stain - Final 08/27/16 20:09 Gram Stain - Final Foot - Right Wound Culture - Preliminary Escherichia Coli 08/27/16 17:45 Blood Culture - Final Blood-Venous Escherichia Coli Gram Stain - Final 08/28/16 16:11 Blood Culture - Preliminary Blood-Thru Central Line NO GROWTH AFTER 24 HOURS Lab Studies 08/30/16 08/30/16 08/29/16 Range/Units 04:20 01:30 18:32 POC Glucose (mg/dL) (65-110) mg/dL Lactic Acid 1.9 (0.7-2.1) MMOL/L Troponin I 1.9300 H* 2.0200 H* (0.00-0.120) ng/mL PTH Intact Whole Molec (14-64) pg/mL Hep Bs Antigen (NEGATIVE) Hep Bs Antibody (NEGATIVE) Hepatitis C Antibody (NEGATIVE) Influenza Typ A,B (EIA) (NEGATIVE) Grp A Beta Strep Ag Negative (NEGATIVE) 08/29/16 08/29/16 08/29/16 Range/Units 12:15 10:58 10:51 POC Glucose (mg/dL) 189 H (65-110) mg/dL Lactic Acid (0.7-2.1) MMOL/L Troponin I 1.6500 H* (0.00-0.120) ng/mL PTH Intact Whole Molec (14-64) pg/mL Hep Bs Antigen (NEGATIVE) Hep Bs Antibody (NEGATIVE) Hepatitis C Antibody (NEGATIVE) Influenza Typ A,B (EIA) Negative for flu a/b (NEGATIVE) Grp A Beta Strep Ag Cancelled (NEGATIVE) 08/28/16 08/28/16 Range/Units 20:45 04:45 POC Glucose (mg/dL) (65-110) mg/dL Lactic Acid (0.7-2.1) MMOL/L Troponin I (0.00-0.120) ng/mL PTH Intact Whole Molec 423 H (14-64) pg/mL Hep Bs Antigen Negative (NEGATIVE) Hep Bs Antibody Positive (NEGATIVE) Hepatitis C Antibody Negative (NEGATIVE) Influenza Typ A,B (EIA) (NEGATIVE) Grp A Beta Strep Ag (NEGATIVE) Laboratory Results - last 24 hr 08/28/16 08/28/16 08/29/16 04:45 20:45 10:51 POC Glucose (mg/dL) Lactic Acid Troponin I 1.6500 H* PTH Intact Whole Molec 423 H Hep Bs Antigen Negative Hep Bs Antibody Positive Hepatitis C Antibody Negative Influenza Typ A,B (EIA) Grp A Beta Strep Ag 08/29/16 08/29/16 08/29/16 10:58 12:15 18:32 POC Glucose (mg/dL) 189 H Lactic Acid Troponin I PTH Intact Whole Molec Hep Bs Antigen Hep Bs Antibody Hepatitis C Antibody Influenza Typ A,B (EIA) Negative for flu a/b Grp A Beta Strep Ag Cancelled Negative 08/30/16 08/30/16 01:30 04:20 POC Glucose (mg/dL) Lactic Acid 1.9 Troponin I 2.0200 H* 1.9300 H* PTH Intact Whole Molec Hep Bs Antigen Hep Bs Antibody Hepatitis C Antibody Influenza Typ A,B (EIA) Grp A Beta Strep Ag EKG/Cardiology Studies: Cardiology / EKG Studies 08/29/16 09:00 EKG [ELECTROCARDIOGRAM] Routine Comment: Mode Of Transportation: Reason For Exam: r/o AMI 08/30/16 01:00 EKG [ELECTROCARDIOGRAM] Stat Comment: Mode Of Transportation: Reason For Exam: personnel monitor changes Fingerstick Blood Sugar Results: 387 Critical Care Progress Note - Nutrition Nutrition: Nutrition Category Date Time Status Renal Diet [DIET] Diets 08/28/16 Breakfast Active Assessment/Plan - Assessment and Plan (Free Text) Plan: (1) Sepsis associated hypotension -BP is stable despite hard to get accurate reading of BP using right antecubital side, low grade fever and still tachy -leukocytosis trending up 14.1-> 15.9 -right foot wound culture showed E.Coli sensitivity to all the medication (2016) -blood culture and permacath blood showed E.Coli ( 08/27/2016) -trending down with lactic acid: 2.3->1.9 -rapid strep and influenza negative -continue with zosyn, zyvox and meropenem -continue with dobutamin drip (5mcg/kg/min) -Echo report showed normal LV systolic function and mildly enlarged right ventricle and RV hypokinesis -monitor vitals (2) Bacteremia due to Gram-negative bacteria -afebrile -etiology from permacath vs foot infection possible from osteomyelitis? -leukocytosis 15.9 -blood culture from port and blood showed E.Coli -continue with zosyn, zyvox and meropenem per ID -Echo report showed normal LV systolic function and mildly enlarged right ventricle and RV hypokinesis -monitor cbc (3) Syncopal Episode -etiology secondary to vasovagal vs cardiac origin vs seizure? -Head CT showed No acute intracranial hemorrhage or large acute infarct. Findings suggest underlying IDDM -neuro consulted -carotid doppler pending -neuro check 14h (4) Troponin level elevated -asymptomatic -etiology from renal failure ESRD rather than cardiac -troponin 1.26->1.39 -EKG showed there is some ST elevation however need to rule out pericarditis per -official echo report showed normal LV systolic function and mildly enlarged right ventricle and RV hypokinesis (5) ESRD (end stage renal disease) -HD (MWF) and HD today -BUN/Cr:30/6.4 -continue with renagel 1600mg TID and sensipar 30mg daily. -monitor BMP -renal diet (6) constipation -fleet enema -add senakot at HS with colace (7) Cellulitis of leg and ulceration with right foot -etiology possible osteomyelitis ? -wound culture showed E.Coli -continue with zosyn. zyvox and meopenem -order arterial Doppler (8) Hyperlipidemia -continue with lipitor (9) Peripheral arterial disease -continue with eliquis -continue with lipitor (10) Diabetes mellitus type 2 with peripheral artery disease -uncontrolled -HgA1C: 11 -monitor only bmp not accucheck -continue with detemir and humalog -Endo is on board (11) Coagulopathy -hx of Protein C & S deficiency and heparin antibodies -continue with eliquis (12) DVT prophylaxis -hx of protein c and S deficiency -continue with eliquis <Jose Bojorquez - Last Filed: 08/30/16 18:07> CCU Subjective - Physician Review Subjective (Free Text): Attestation: Patient seen and examined at the bedside with Resident Dr. Ella Groves; and I agree with her outline of plans and management documented below as discussed on AM rounds reflecting my review of all applicable clinical data, and participation in the care of the patient throughout the day in ICU; today, August 30, 2016.
[2016-08-30] MEDS: Insulin Lispro (humaLOG) 100 Units/ml Inj SC SCH ×2 (08:29→16:41)
[2016-08-30] MEDS: Lidocaine 5% Patch TD SCH (08:33)
[2016-08-30] MEDS: Santyl Collagenase OINTMENT TOP SCH (08:35)
[2016-08-30] MEDS: Meropenem 500 MG in Sodium Chloride 0.9% 100 ML IVPB SCH (08:36)
--- NOTE | 2016-08-30 09:09 | CP.PCM.PN ---
Subjective - Date & Time of Evaluation Date of Evaluation: 08/30/16 Time of Evaluation: 08:45 - Subjective Subjective: 46 yo female patient S&E with Dr. Pruett at bedside in ICU this morning. Pt had low grade fever overnight but is afebrile currently. Pt is awake, alert and oriented however she does appear lethargic today. Continues to complain of right posterior-leg pain however says pain medication is helping. Denies n/v/c/ sob/difficulty breathing. Multipodus boot is seen donned to right foot and dressing appears c/d/i. Objective - Vital Signs/Intake and Output Vital Signs (last 24 hours): Temp Pulse Resp BP Pulse Ox 97.7 F 127 H 25 H 105/55 L 99 08/30/16 08:10 08/30/16 08:10 08/30/16 08:10 08/30/16 08:10 08/30/16 08:10 Intake and Output: 08/30/16 08/30/16 06:59 18:59 Intake Total 1329 Balance 1329 - Medications Medications: Current Medications Acetaminophen (Tylenol 325mg Tab) 650 mg PO Q4 PRN PRN Reason: Fever >100.4 F Last Admin: 08/28/16 15:23 Dose: 650 mg Acetaminophen (Tylenol 325mg Tab) 650 mg PO Q4 PRN PRN Reason: Pain, moderate (4-7) Last Admin: 08/29/16 21:58 Dose: 650 mg Albuterol/Ipratropium (Duoneb 3 Mg/0.5 Mg (3 Ml) Ud) 3 ml INH RQ4 PRN PRN Reason: Shortness of Breath Last Admin: 08/29/16 21:29 Dose: 3 ml Apixaban (Eliquis) 5 mg PO BID [facility] PRN Reason: Protocol Last Admin: 08/30/16 08:23 Dose: 5 mg Aspirin (Ecotrin) 81 mg PO DAILY [facility] Last Admin: 08/30/16 08:32 Dose: 81 mg Atorvastatin Calcium (Lipitor) 40 mg PO DAILY [facility] Last Admin: 08/30/16 08:34 Dose: 40 mg Cinacalcet (Sensipar) 30 mg PO DAILY [facility] Last Admin: 08/30/16 08:36 Dose: 30 mg Collagenase (Santyl) 1 applic TOP DAILY [facility] Last Admin: 08/30/16 08:35 Dose: 1 applic Docusate Sodium (Colace) 200 mg PO BID [facility] Last Admin: 08/30/16 08:32 Dose: 200 mg Piperacillin Sod/Tazobactam (Sod 2.25 gm/ Sodium Chloride) 100 mls @ 100 mls/ hr IVPB Q12 [facility] Last Admin: 08/29/16 20:12 Dose: 100 mls/hr Linezolid (Zyvox 600mg/300ml D5w) 300 mls @ 300 mls/hr IVPB Q12 [facility] Last Admin: 08/29/16 21:14 Dose: 300 mls/hr Meropenem 500 mg/ Sodium (Chloride) 100 mls @ 100 mls/hr IVPB DAILY [facility] Last Admin: 08/30/16 08:36 Dose: 100 mls/hr Dobutamine HCl/Dextrose (Dobutamine/Dextrose 5% 500mg/250ml) 250 mls @ 16.67 mls/hr IV .Q15H [facility] PRN Reason: 5 MCG/KG/MIN Last Admin: 08/30/16 01:58 Dose: 16.67 mls/hr Sodium Chloride (Sodium Chloride 0.9%) 250 mls @ 999 mls/hr IV .Q16M [facility] Last Admin: 08/30/16 05:36 Dose: 999 mls/hr Insulin Detemir (Levemir) 20 units SC DAILY [facility] Last Admin: 08/29/16 11:33 Dose: 20 units Insulin Detemir (Levemir) 40 units SC HS [facility] Last Admin: 08/29/16 21:15 Dose: 40 units Insulin Human Lispro (Humalog) 24 units SC AC [facility] Last Admin: 08/30/16 08:29 Dose: 24 units Lidocaine (Lidoderm) 1 ea TD DAILY [facility] Last Admin: 08/30/16 08:33 Dose: 1 ea Ondansetron HCl (Zofran Inj) 4 mg IVP Q6 PRN PRN Reason: Nausea/Vomiting Last Admin: 08/30/16 08:44 Dose: 4 mg Senna/Docusate Sodium (Senokot S 50 Mg-8.6 Mg) 3 tab PO HS PRN PRN Reason: Constipation Sevelamer HCl (Renagel) 1,600 mg PO TID [facility] Last Admin: 08/30/16 08:35 Dose: 1,600 mg Vitamin B Complex/Vit C/Folic Acid (Nephro-Ajay) 1 tab PO DAILY [facility] Last Admin: 08/29/16 09:53 Dose: 1 tab - Labs Labs: 08/29/16 05:45 08/29/16 05:45 PT 16.5 SECONDS (9.6-11.2) H 08/28/16 16:11 INR 1.59 (0.92-1.08) H 08/28/16 16:11 APTT 38.7 SECONDS (23.3-32.5) H 08/28/16 16:11 - Constitutional Appears: Non-toxic, No Acute Distress - Extremities Exam Additional comments: RLE exam: VASC- DP pulse is faintly palpable, PT pulse non-palp, skin temp runs warm to warm, capillary refill < 5 sec to digits x 5, moderate 2+ pitting edema noted to anterior aspect of leg and dorsum of foot NEURO-gross pedal sensation is diminished DERM- superficial eschar noted to plantar aspect of heel feels somewhat boggy, slight serous drainage, no purulence, no probe to bone, no undermining, no malodor, no local or ascending erythema seen ORTHO- slight tenderness noted to deep palpation of calf/posterior leg, patient able to flex and extend all digits, severe varus deformity of ankle noted - Neurological Exam Neurological Exam: Alert, Awake, Oriented x3 - Psychiatric Exam Psychiatric exam: Normal Affect, Normal Mood Assessment and Plan - Assessment and Plan (Free Text) Assessment: 46 yo female patient w/ pmhx of HTN, ESRD (on dialysis), coagulopathy, DM, charcot right foot PVD admitted for sepsis, right heel ulceration, painful right posterior leg Plan: --Pt seen and evaluated in ICU w/ attending Dr. Pruett present --Chart,vitals reviewed: Tmax overnight 100.1, currently afebrile, wbc 14.1 --Venous duplex US (RLE): negative for DVT --Right foot x-ray: diffuse soft tissue swelling, severe neuropathic tiffanie changes. No evidence acute articular or osseous abnormality. --Blood cx: E. coli --Central line cath: E. coli --Right wound cx: E. coli --IV abx per ID Dr. Greenberg: meropenem 500 mg qd, zosyn 2.25 gq12, linezolid 600 mg q12 --Pain meds per primary (dilaudid) --On eliquis 5 mg po bid --Tylenol for fever --Right foot dressing changed, jenni held today, DSD only. Offloading prevalon boot to be applied to right heel at all times in bed --Podiatry will continue to monitor closely.
--- NOTE | 2016-08-30 09:40 | CT ---
PROCEDURE: CT HEAD WITHOUT CONTRAST. HISTORY: syncopal episodes COMPARISON: CT brain 12/09/2028. TECHNIQUE: Axial computed tomography images were obtained through the head/brain without intravenous contrast. Radiation dose: Total exam DLP = 1457.15 mGy-cm. This CT exam was performed using one or more of the following dose reduction techniques: Automated exposure control, adjustment of the mA and/or kV according to patient size, and/or use of iterative reconstruction technique. FINDINGS: HEMORRHAGE: No intracranial hemorrhage. BRAIN: No mass effect or edema. No atrophy or chronic microvascular ischemic changes. Vascular calcifications are present. In addition, there also vascular scalp calcifications suggestive of IDDM. Clinical correlation recommended VENTRICLES: Unremarkable. No hydrocephalus. CALVARIUM: Unremarkable. PARANASAL SINUSES: Unremarkable as visualized. No significant inflammatory changes. MASTOID AIR CELLS: Unremarkable as visualized. No inflammatory changes. OTHER FINDINGS: Intraorbital vascular calcifications also present IMPRESSION: No acute intracranial hemorrhage or large acute infarct. Findings suggest underlying IDDM
--- NOTE | 2016-08-30 09:55 | CP.PCM.PN ---
Subjective - Date & Time of Evaluation Date of Evaluation: 08/30/16 Time of Evaluation: 09:53 - Subjective Subjective: Patient is awake She went for CT scan of the abdomen and pelvis Hemodialysis about to start now Vital sign noted I alerted the dialysis nurse to monitor any shaking chills may occur during the dialysis and to report to me . Blood culture reported to be Escherichia coli therefore perhaps no need for vancomycin anymore although I will leave that up to the infectious disease. P/E Chest is clearing Heart no rubs Abdomen soft Extremity no changes basically left below knee amputation , and decreased redness and tenderness in the right leg. The right foot is not warm Impression and plan Sepsis patient is being treated by antibiotics as per ID Monitor chills today during dialysis Extra hemodialysis today around 3 hours if tolerated with ultrafiltration about 1000 mL if tolerated again we will have albumin on hand. Continue monitoring cardiac status as reported by cardiology. Objective - Vital Signs/Intake and Output Vital Signs (last 24 hours): Temp Pulse Resp BP Pulse Ox 97.7 F 127 H 25 H 105/55 L 99 08/30/16 08:10 08/30/16 08:10 08/30/16 08:10 08/30/16 08:10 08/30/16 08:10 Intake and Output: 08/30/16 08/30/16 06:59 18:59 Intake Total 1329 Balance 1329 - Medications Medications: Current Medications Acetaminophen (Tylenol 325mg Tab) 650 mg PO Q4 PRN PRN Reason: Fever >100.4 F Last Admin: 08/28/16 15:23 Dose: 650 mg Acetaminophen (Tylenol 325mg Tab) 650 mg PO Q4 PRN PRN Reason: Pain, moderate (4-7) Last Admin: 08/29/16 21:58 Dose: 650 mg Albuterol/Ipratropium (Duoneb 3 Mg/0.5 Mg (3 Ml) Ud) 3 ml INH RQ4 PRN PRN Reason: Shortness of Breath Last Admin: 08/29/16 21:29 Dose: 3 ml Apixaban (Eliquis) 5 mg PO BID [facility] PRN Reason: Protocol Last Admin: 08/30/16 08:23 Dose: 5 mg Aspirin (Ecotrin) 81 mg PO DAILY [facility] Last Admin: 08/30/16 08:32 Dose: 81 mg Atorvastatin Calcium (Lipitor) 40 mg PO DAILY [facility] Last Admin: 08/30/16 08:34 Dose: 40 mg Cinacalcet (Sensipar) 30 mg PO DAILY [facility] Last Admin: 08/30/16 08:36 Dose: 30 mg Collagenase (Santyl) 1 applic TOP DAILY [facility] Last Admin: 08/30/16 08:35 Dose: 1 applic Docusate Sodium (Colace) 200 mg PO BID [facility] Last Admin: 08/30/16 08:32 Dose: 200 mg Piperacillin Sod/Tazobactam (Sod 2.25 gm/ Sodium Chloride) 100 mls @ 100 mls/ hr IVPB Q12 [facility] Last Admin: 08/29/16 20:12 Dose: 100 mls/hr Linezolid (Zyvox 600mg/300ml D5w) 300 mls @ 300 mls/hr IVPB Q12 [facility] Last Admin: 08/29/16 21:14 Dose: 300 mls/hr Meropenem 500 mg/ Sodium (Chloride) 100 mls @ 100 mls/hr IVPB DAILY [facility] Last Admin: 08/30/16 08:36 Dose: 100 mls/hr Dobutamine HCl/Dextrose (Dobutamine/Dextrose 5% 500mg/250ml) 250 mls @ 16.67 mls/hr IV .Q15H [facility] PRN Reason: 5 MCG/KG/MIN Last Admin: 08/30/16 01:58 Dose: 16.67 mls/hr Sodium Chloride (Sodium Chloride 0.9%) 250 mls @ 999 mls/hr IV .Q16M [facility] Last Admin: 08/30/16 05:36 Dose: 999 mls/hr Insulin Detemir (Levemir) 20 units SC DAILY [facility] Last Admin: 08/29/16 11:33 Dose: 20 units Insulin Detemir (Levemir) 40 units SC HS [facility] Last Admin: 08/29/16 21:15 Dose: 40 units Insulin Human Lispro (Humalog) 24 units SC AC [facility] Last Admin: 08/30/16 08:29 Dose: 24 units Lidocaine (Lidoderm) 1 ea TD DAILY [facility] Last Admin: 08/30/16 08:33 Dose: 1 ea Ondansetron HCl (Zofran Inj) 4 mg IVP Q6 PRN PRN Reason: Nausea/Vomiting Last Admin: 08/30/16 08:44 Dose: 4 mg Senna/Docusate Sodium (Senokot S 50 Mg-8.6 Mg) 3 tab PO HS PRN PRN Reason: Constipation Sevelamer HCl (Renagel) 1,600 mg PO TID [facility] Last Admin: 08/30/16 08:35 Dose: 1,600 mg Vitamin B Complex/Vit C/Folic Acid (Nephro-Ajay) 1 tab PO DAILY [facility] Last Admin: 08/29/16 09:53 Dose: 1 tab - Labs Labs: 08/29/16 05:45 08/29/16 05:45 PT 16.5 SECONDS (9.6-11.2) H 08/28/16 16:11 INR 1.59 (0.92-1.08) H 08/28/16 16:11 APTT 38.7 SECONDS (23.3-32.5) H 08/28/16 16:11 Assessment and Plan (1) Cellulitis of leg Status: Acute (2) ESRD (end stage renal disease) Status: Acute
--- NOTE | 2016-08-30 09:57 | CT ---
PROCEDURE: CT Lumbar Spine without contrast HISTORY: rule out cord compression COMPARISON: None. TECHNIQUE: Axial computed tomography images were obtained of the lumbar spine without the use of intravenous contrast. Coronal and sagittal reformatted images were created and reviewed. Radiation dose: Total exam DLP = 1466.18 mGy-cm. This CT exam was performed using one or more of the following dose reduction techniques: Automated exposure control, adjustment of the mA and/or kV according to patient size, and/or use of iterative reconstruction technique. FINDINGS: VERTEBRAE: Unremarkable. No fracture. Normal alignment. DISCS/SPINAL CANAL/NEURAL FORAMINA: L1-2: Disc space height maintained. No disc herniation or significant disc bulge. Mild facet arthropathy. Central canal and exit foramina adequate.. L2-3: Disc space height maintained. No disc herniation or significant disc bulge. Mild facet arthropathy. Central canal and exit foramina adequate.. L3-4: Disc space height maintained. No disc herniation or significant disc bulge. Mild facet arthropathy. Central canal and exit foramina adequate. L4-5: Mild facet arthropathy. No disc herniation. Minimal asymmetric disc bulge on most pronounced in the proximal aspect left exit foramen. Central canal and exit foramina do appear adequate. . L5-S1: Mild disc space narrowing with central and bilateral (left larger than right) disc herniation that does reaching and may minimally displace the ventral surfaces of descending S1 nerve roots. Facet joints are mildly hypertrophic. Central canal appears adequate. Exit foramina are marginal to adequate on the left and marginal to minimally narrowed on the left. The. PARASPINAL SOFT TISSUES: Unremarkable. OTHER FINDINGS: There are at least 3 rounded low-attenuation foci right kidney, the largest measuring approximately 4.5 x 3.5 cm follow-up ultrasound recommended to further assess suspected cysts and exclude any solid components. Extensive vascular calcifications both kidneys consistent with sequela of blood IDDM or and or hypertension Mildly enlarged nodular appearing left adrenal gland. Underlying nodule not completely excluded Extensive vascular calcifications of the intra abdominal vasculature and mild vascular calcification mid to distal abdominal aorta and iliac arteries. Suspect calcified uterine fibroids. Follow-up ultrasound may be prudent. IMPRESSION: No acute fractures. Degenerative spondylosis most notably affecting L5-S1 as above. See above discussion for additional findings details and recommendations. . at least 3 rounded low-attenuation foci right kidney, the largest measuring approximately 4.5 x 3.5 cm follow-up ultrasound recommended to further assess suspected cysts and exclude any solid components. Extensive vascular calcifications both kidneys consistent with sequela of blood IDDM or and or hypertension Mildly enlarged nodular appearing left adrenal gland. Underlying nodule not completely excluded Extensive vascular calcifications of the intra abdominal vasculature and mild vascular calcification mid to distal abdominal aorta and iliac arteries. Suspect calcified uterine fibroids. Follow-up ultrasound may be prudent.
--- NOTE | 2016-08-30 10:05 | CP.PCM.PN ---
Subjective - Date & Time of Evaluation Date of Evaluation: 08/30/16 Time of Evaluation: 09:40 - Subjective Subjective: Awake, alert, denies chills or feverish sensation Sinus tach at 115 BPM, reg BP 120/70 mm Hg Insp effort poor, no rales No percardial rub EKG today again shows ST segment elevation unchanged in III and aVF since Troponin levels still elevated (?? due to CKD/? due to pericarditis/? following hypotension) Hemodynamically stable Azotemia pronounced following HD yesterday HD about to start IV ABx continue. Objective - Vital Signs/Intake and Output Vital Signs (last 24 hours): Temp Pulse Resp BP Pulse Ox 97.7 F 127 H 25 H 105/55 L 99 08/30/16 08:10 08/30/16 08:10 08/30/16 08:10 08/30/16 08:10 08/30/16 08:10 Intake and Output: 08/30/16 08/30/16 06:59 18:59 Intake Total 1329 Balance 1329 - Medications Medications: Current Medications Acetaminophen (Tylenol 325mg Tab) 650 mg PO Q4 PRN PRN Reason: Fever >100.4 F Last Admin: 08/28/16 15:23 Dose: 650 mg Acetaminophen (Tylenol 325mg Tab) 650 mg PO Q4 PRN PRN Reason: Pain, moderate (4-7) Last Admin: 08/29/16 21:58 Dose: 650 mg Albuterol/Ipratropium (Duoneb 3 Mg/0.5 Mg (3 Ml) Ud) 3 ml INH RQ4 PRN PRN Reason: Shortness of Breath Last Admin: 08/29/16 21:29 Dose: 3 ml Apixaban (Eliquis) 5 mg PO BID [facility] PRN Reason: Protocol Last Admin: 08/30/16 08:23 Dose: 5 mg Aspirin (Ecotrin) 81 mg PO DAILY [facility] Last Admin: 08/30/16 08:32 Dose: 81 mg Atorvastatin Calcium (Lipitor) 40 mg PO DAILY [facility] Last Admin: 08/30/16 08:34 Dose: 40 mg Cinacalcet (Sensipar) 30 mg PO DAILY [facility] Last Admin: 08/30/16 08:36 Dose: 30 mg Collagenase (Santyl) 1 applic TOP DAILY [facility] Last Admin: 08/30/16 08:35 Dose: 1 applic Docusate Sodium (Colace) 200 mg PO BID [facility] Last Admin: 08/30/16 08:32 Dose: 200 mg Piperacillin Sod/Tazobactam (Sod 2.25 gm/ Sodium Chloride) 100 mls @ 100 mls/ hr IVPB Q12 [facility] Last Admin: 08/29/16 20:12 Dose: 100 mls/hr Linezolid (Zyvox 600mg/300ml D5w) 300 mls @ 300 mls/hr IVPB Q12 [facility] Last Admin: 08/29/16 21:14 Dose: 300 mls/hr Meropenem 500 mg/ Sodium (Chloride) 100 mls @ 100 mls/hr IVPB DAILY [facility] Last Admin: 08/30/16 08:36 Dose: 100 mls/hr Dobutamine HCl/Dextrose (Dobutamine/Dextrose 5% 500mg/250ml) 250 mls @ 16.67 mls/hr IV .Q15H [facility] PRN Reason: 5 MCG/KG/MIN Last Admin: 08/30/16 01:58 Dose: 16.67 mls/hr Sodium Chloride (Sodium Chloride 0.9%) 250 mls @ 999 mls/hr IV .Q16M [facility] Last Admin: 08/30/16 05:36 Dose: 999 mls/hr Insulin Detemir (Levemir) 20 units SC DAILY [facility] Last Admin: 08/29/16 11:33 Dose: 20 units Insulin Detemir (Levemir) 40 units SC HS [facility] Last Admin: 08/29/16 21:15 Dose: 40 units Insulin Human Lispro (Humalog) 24 units SC AC [facility] Last Admin: 08/30/16 08:29 Dose: 24 units Lidocaine (Lidoderm) 1 ea TD DAILY [facility] Last Admin: 08/30/16 08:33 Dose: 1 ea Ondansetron HCl (Zofran Inj) 4 mg IVP Q6 PRN PRN Reason: Nausea/Vomiting Last Admin: 08/30/16 08:44 Dose: 4 mg Senna/Docusate Sodium (Senokot S 50 Mg-8.6 Mg) 3 tab PO HS PRN PRN Reason: Constipation Sevelamer HCl (Renagel) 1,600 mg PO TID [facility] Last Admin: 08/30/16 08:35 Dose: 1,600 mg Vitamin B Complex/Vit C/Folic Acid (Nephro-Ajay) 1 tab PO DAILY [facility] Last Admin: 08/29/16 09:53 Dose: 1 tab - Labs Labs: 08/29/16 05:45 08/29/16 05:45 PT 16.5 SECONDS (9.6-11.2) H 08/28/16 16:11 INR 1.59 (0.92-1.08) H 08/28/16 16:11 APTT 38.7 SECONDS (23.3-32.5) H 08/28/16 16:11
--- NOTE | 2016-08-30 10:11 | RAD ---
HISTORY: esophageal obstruction COMPARISON: No prior. FINDINGS: LUNGS: Re- demonstrated is right lower lobe opacity that may represent residual infiltrate and/or atelectasis. Questionable small effusion minor linear atelectasis left lung base. PLEURA: No significant pleural effusion identified, no pneumothorax apparent. CARDIOVASCULAR: Heart size is upper limits of normal/ borderline enlarged OSSEOUS STRUCTURES: No significant abnormalities. VISUALIZED UPPER ABDOMEN: Normal. OTHER FINDINGS: In situ right-sided dialysis catheter with tip in the SVC/RA junction IMPRESSION: Re- demonstrated is right lower lobe opacity that may represent residual infiltrate and/or atelectasis. Questionable small effusion minor linear atelectasis left lung base.
[2016-08-30] MEDS: Insulin Detemir 100 Units/ml Inj SC SCH ×2 (11:18→22:29)
[2016-08-30] MEDS: Multivitamin Vitamin B Complex (Nephro-Vite) Tab PO SCH (11:19)
--- NOTE | 2016-08-30 11:40 | CT ---
PROCEDURE: CT scan right hip dated 08/30/2016 HISTORY: rule out cord compression per COMPARISON: None available. TECHNIQUE: Contiguous axial images of the right hip were obtained. Coronal and sagittal reformats were generated. This CT exam was performed using one or more of the following dose reduction techniques: Automated exposure control, adjustment of the mA and/or kV according to patient size, and/or use of iterative reconstruction technique. FINDINGS: BONES: No evidence of acute displaced fracture nor dislocation. Right femoral head is appropriately located within the right acetabulum. Note is made of 2 linear lucent track corea on along the femoral neck and head likely representing sequela of since removed fixation/compression screws. Clinic correlation with surgical history recommended. RIGHT HIP JOINT: There there is mild degenerative osteoarthritis with axial and posterior joint space narrowing. . There may be some early subchondral sclerosis along the posterior acetabulum. SOFT TISSUES: Surrounding soft tissues unremarkable. Note made of extensive vascular calcifications within pelvis suggesting underlying IDDM and/or hypertension. Calcified uterine fibroids present as well. Consider followup pelvic ultrasound. IMPRESSION: No evidence of acute displaced fracture nor dislocation. Mild DJD right hip as detailed above. There are 2 linear lucent track corea traversing the right femoral neck and head likely representing residual screw holes from since removed fixation and/or compression screws Calcified uterine fibroids. Consider followup pelvic ultrasound
[2016-08-30 11:41] LABS: CALCIUM 8.6 mg/dL (8.4-10.2); POTASSIUM 4.7 MMOL/L (3.6-5.0)
[2016-08-30] MEDS: Linezolid 600 mg in D5W 300 ml 300 ML IVPB SCH ×2 (13:47→20:24)
--- NOTE | 2016-08-30 14:05 | CP.PCM.PN ---
Subjective - Date & Time of Evaluation Date of Evaluation: 08/30/16 Time of Evaluation: 14:02 - Subjective Subjective: Patient had an episode of complete unresponsiveness last night. Here are the nurse's notes: 23:00-Pt unresponsive to verbal and tactile stimuli during repositioning. Carotid pulse present- HR 145. Dr. Tompkins made aware. pt slowly back to being responsive to verbal stimuli. Dr. Tompkins saw and assessed pt. No facial droop or weakness observed. Pt remains tachycardic at 135 bpm. 250 ml NS bolus given. will continue to monitor. -23:36-Pt AAOX3. responds to verbal and tactile stimuli. Restless in bed. Xanax 0.25 mg PO given with (+) results. Initialized on 08/30/16 00:17 - END OF NOTE Patient was sent for CT of the brain. She became restless, felt she could not breath when lying down, felt "faint." She was returned to the ICU and felt better. No loss of consciousness noted. CT of brain was reported to be negative except for signs of IDDM [insulin dependent diabetes mellitus]. Will order carotid doppler studies Patient has developed a cough. CXR today shows improvement at right base. Tachycardia persists Earlier she had nausea and vomiting which responded to Zofran IV. She has no appetite and feels as if food "gets stuck." She has been constipated and was unable to move her bowels sitting on bedpan. She has had this problem in the past - Will give Fleets enema(s) today, 3 Senekot S tonight, and the 1 Senekot S daily hs. Acc to Dr. Bojorquez, Dr. Resendez saw patient today. He does not believe there is an osteomyelitis of the right heel. I am of the opposite opinion. I do not believe we can save the patient without at some point losing the right lower leg. For now we are dealing with E. Coli bacteria from the foot, blood, and Permacath cultures. Will get doppler ultrasound of the right lower leg. Will focus on aggressive IV antibiotic therapy. Diabetes mellitus is being fairly controlled on current regimen. SMA7 just sent . Objective - Vital Signs/Intake and Output Vital Signs (last 24 hours): Temp Pulse Resp BP Pulse Ox 98.1 F 129 H 17 121/72 95 08/30/16 12:07 08/30/16 12:07 08/30/16 12:07 08/30/16 12:07 08/30/16 12:07 Intake and Output: 08/30/16 08/30/16 06:59 18:59 Intake Total 1329 168 Balance 1329 168 - Medications Medications: Current Medications Acetaminophen (Tylenol 325mg Tab) 650 mg PO Q4 PRN PRN Reason: Fever >100.4 F Last Admin: 08/28/16 15:23 Dose: 650 mg Acetaminophen (Tylenol 325mg Tab) 650 mg PO Q4 PRN PRN Reason: Pain, moderate (4-7) Last Admin: 08/29/16 21:58 Dose: 650 mg Albuterol/Ipratropium (Duoneb 3 Mg/0.5 Mg (3 Ml) Ud) 3 ml INH RQ4 PRN PRN Reason: Shortness of Breath Last Admin: 08/29/16 21:29 Dose: 3 ml Apixaban (Eliquis) 5 mg PO BID [facility] PRN Reason: Protocol Last Admin: 08/30/16 08:23 Dose: 5 mg Aspirin (Ecotrin) 81 mg PO DAILY [facility] Last Admin: 08/30/16 08:32 Dose: 81 mg Atorvastatin Calcium (Lipitor) 40 mg PO DAILY [facility] Last Admin: 08/30/16 08:34 Dose: 40 mg Cinacalcet (Sensipar) 30 mg PO DAILY [facility] Last Admin: 08/30/16 08:36 Dose: 30 mg Collagenase (Santyl) 1 applic TOP DAILY [facility] Last Admin: 08/30/16 08:35 Dose: 1 applic Docusate Sodium (Colace) 200 mg PO BID [facility] Last Admin: 08/30/16 08:32 Dose: 200 mg Piperacillin Sod/Tazobactam (Sod 2.25 gm/ Sodium Chloride) 100 mls @ 100 mls/ hr IVPB Q12 [facility] Last Admin: 08/29/16 20:12 Dose: 100 mls/hr Linezolid (Zyvox 600mg/300ml D5w) 300 mls @ 300 mls/hr IVPB Q12 [facility] Last Admin: 08/30/16 13:47 Dose: 300 mls/hr Meropenem 500 mg/ Sodium (Chloride) 100 mls @ 100 mls/hr IVPB DAILY [facility] Last Admin: 08/30/16 08:36 Dose: 100 mls/hr Dobutamine HCl/Dextrose (Dobutamine/Dextrose 5% 500mg/250ml) 250 mls @ 16.67 mls/hr IV .Q15H [facility] PRN Reason: 5 MCG/KG/MIN Last Admin: 08/30/16 01:58 Dose: 16.67 mls/hr Sodium Chloride (Sodium Chloride 0.9%) 250 mls @ 999 mls/hr IV .Q16M [facility] Last Admin: 08/30/16 05:36 Dose: 999 mls/hr Insulin Detemir (Levemir) 20 units SC DAILY [facility] Last Admin: 08/30/16 11:18 Dose: Not Given Insulin Detemir (Levemir) 40 units SC HS [facility] Last Admin: 08/29/16 21:15 Dose: 40 units Insulin Human Lispro (Humalog) 20 units SC AC [facility] Lidocaine (Lidoderm) 1 ea TD DAILY [facility] Last Admin: 08/30/16 08:33 Dose: 1 ea Ondansetron HCl (Zofran Inj) 4 mg IVP Q6 PRN PRN Reason: Nausea/Vomiting Last Admin: 08/30/16 08:44 Dose: 4 mg Senna/Docusate Sodium (Senokot S 50 Mg-8.6 Mg) 3 tab PO HS PRN PRN Reason: Constipation Sevelamer HCl (Renagel) 1,600 mg PO TID [facility] Last Admin: 08/30/16 13:53 Dose: 1,600 mg Vitamin B Complex/Vit C/Folic Acid (Nephro-Ajay) 1 tab PO DAILY [facility] Last Admin: 08/30/16 11:19 Dose: Not Given - Labs Labs: 08/29/16 05:45 08/30/16 04:20 PT 16.5 SECONDS (9.6-11.2) H 08/28/16 16:11 INR 1.59 (0.92-1.08) H 08/28/16 16:11 APTT 38.7 SECONDS (23.3-32.5) H 08/28/16 16:11 - Constitutional Appears: Other (Less alert, sl. less articulate than usual. Not giving a good history.) - Head Exam Head Exam: NORMAL INSPECTION - Eye Exam Eye Exam: Normal appearance - Neck Exam Neck Exam: Normal Inspection Additional comments: Carotid pulses present, no bruits. - Respiratory Exam Additional comments: Improved breath sounds at the bases. Sl. increased secretions in large airways. - Cardiovascular Exam Cardiovascular Exam: REGULAR RHYTHM, +S1, +S2 - GI/Abdominal Exam GI & Abdominal Exam: Soft - Extremities Exam Additional comments: L hand is sl edematous, but it is warm and has no open lesions.. R hand is warm with no edema and no open lesions. - Back Exam Back Exam: NORMAL INSPECTION - Neurological Exam Neurological Exam: Alert, Awake, CN II-XII Intact, Oriented x3 Additional comments: No focal or lateralizing deficits. Gait not tested. - Skin Additional comments: Normal except as previously noted. Assessment and Plan (1) Unresponsiveness Assessment & Plan: See subjective. It is not clear if this was arrhythmogenic, hypotensive, TIA, or seizure. Patient is not a candidate for TPA. She is already on Eliquis and aspirin, and heparin cannot be given. Bleed has been ruled out by brain CT. Dr. Danii Keller will see the patient today in neurology consultation to give us guidance. Status: Acute (2) SIRS (systemic inflammatory response syndrome) Assessment & Plan: Improved, with lactic acid level stable, but still needs dobutamine. BP remains low and pulse rapid. Will recheck transaminases which were elevated ( presumably from shock liver) To continue intense antibiotic management. Status: Acute (3) Cellulitis of leg Assessment & Plan: Resolving. Status: Acute (4) Ulcer of right heel Assessment & Plan: Strongly suspect osteomyelitis based on air in the soft tissues on xray of the foot, poor tissue perfusion leading to lack of healing of ulcer on heel, positive foot culture with corresponding bacteremia, and overall boggy nature of necrotic tissue under the right heel. We have ordered an arterial doppler study of the lower extremities. The right foot is warm now, but the DP pulse is undetectable. Status: Acute (5) DM type 2 (diabetes mellitus, type 2) Assessment & Plan: Doing OK with current regimen - if there is concern regarding hypoglycemis ( e.g. if patient is not eating and there is uncertainty about giving insulin) the nurse may do an accuchek glucose using the right forearm. SMA 7 is pending. Status: Chronic (6) Coagulopathy Assessment & Plan: stable. Status: Chronic (7) ESRD (end stage renal disease) on dialysis Assessment & Plan: Patient tolerated HD today - maintained BP with removal of 1.5 liters of fluid. Status: Chronic (8) Hyperlipidemia Status: Acute (9) Peripheral arterial occlusive disease Status: Acute (10) Back pain Assessment & Plan: Improved. Status: Acute
[2016-08-30 14:51] LABS: BASO # 0.1 K/uL (0.0-0.2); BASO % 0.4 % (0.0-2.0); EOS # 0.1 K/uL (0.0-0.7); EOS % 0.7 % (0.0-4.0); HEMATOCRIT 30.5 % (34.0-47.0); LYMPH # 0.8 K/uL (1.0-4.3); LYMPH % 4.7 % (20.0-40.0); MEAN CELL VOLUME 93.2 fl (81.0-99.0); MEAN CORPUSCULAR HGB CONC 31.2 g/dL (33.0-37.0); MEAN PLATELET VOLUME 11.1 fl (7.2-11.7); MONO # 2.1 K/uL (0.0-0.8); MONO % 13.2 % (0.0-10.0); NEUT # 12.9 K/uL (1.8-7.0); NRBC % 0.1 % (0.0-0.0); RED CELL DISTRIBUTION WIDTH 20.6 % (11.5-14.5); WHITE BLOOD COUNT 15.9 K/uL (4.8-10.8)
[2016-08-30 15:05] LABS: ALB/GLOB RATIO 0.7 (1.0-2.1); BILIRUBIN,TOTAL 0.7 mg/dl (0.2-1.3); CALCIUM 8.4 mg/dL (8.4-10.2); POTASSIUM 3.8 MMOL/L (3.6-5.0); TOTAL PROTEIN 6.6 G/DL (6.3-8.2)
[2016-08-30 15:18] LABS: ALB/GLOB RATIO 0.7 (1.0-2.1); BILIRUBIN,TOTAL 0.8 mg/dl (0.2-1.3); TOTAL PROTEIN 6.8 G/DL (6.3-8.2)
--- NOTE | 2016-08-30 15:27 | CP.PCM.PN ---
Subjective - Date & Time of Evaluation Date of Evaluation: 08/30/16 Time of Evaluation: 09:00 - Subjective Subjective: Patient was seen today in ICU. I saw the patient with PGY1 [place]. Spoke with Med resident. Patient report nausea and vomiting today. Patient still with fever, cultures demonstrate gram neg rods in all cultures, blood, foot and RD access site. Xray report of foot: [place] Patient does have plantar posterior ulcer of heel, dry gangrenous patch with maceration along periphery. No purulence, no mal order. If osteomyletis of heel, don't truly believe causing sepsis throughout body. If becomes stable can perform bone biopsy which will give definitive culture/ proof of osteo Objective - Vital Signs/Intake and Output Vital Signs (last 24 hours): Temp Pulse Resp BP Pulse Ox 98.1 F 129 H 17 121/72 95 08/30/16 12:07 08/30/16 12:07 08/30/16 12:07 08/30/16 12:07 08/30/16 12:07 Intake and Output: 08/30/16 08/30/16 06:59 18:59 Intake Total 1329 202 Balance 1329 202 - Medications Medications: Current Medications Acetaminophen (Tylenol 325mg Tab) 650 mg PO Q4 PRN PRN Reason: Fever >100.4 F Last Admin: 08/28/16 15:23 Dose: 650 mg Acetaminophen (Tylenol 325mg Tab) 650 mg PO Q4 PRN PRN Reason: Pain, moderate (4-7) Last Admin: 08/29/16 21:58 Dose: 650 mg Albuterol/Ipratropium (Duoneb 3 Mg/0.5 Mg (3 Ml) Ud) 3 ml INH RQ4 PRN PRN Reason: Shortness of Breath Last Admin: 08/29/16 21:29 Dose: 3 ml Apixaban (Eliquis) 5 mg PO BID [facility] PRN Reason: Protocol Last Admin: 08/30/16 08:23 Dose: 5 mg Aspirin (Ecotrin) 81 mg PO DAILY [facility] Last Admin: 08/30/16 08:32 Dose: 81 mg Atorvastatin Calcium (Lipitor) 40 mg PO DAILY [facility] Last Admin: 08/30/16 08:34 Dose: 40 mg Cinacalcet (Sensipar) 30 mg PO DAILY [facility] Last Admin: 08/30/16 08:36 Dose: 30 mg Collagenase (Santyl) 1 applic TOP DAILY [facility] Last Admin: 08/30/16 08:35 Dose: 1 applic Docusate Sodium (Colace) 200 mg PO BID [facility] Last Admin: 08/30/16 08:32 Dose: 200 mg Piperacillin Sod/Tazobactam (Sod 2.25 gm/ Sodium Chloride) 100 mls @ 100 mls/ hr IVPB Q12 [facility] Last Admin: 08/29/16 20:12 Dose: 100 mls/hr Linezolid (Zyvox 600mg/300ml D5w) 300 mls @ 300 mls/hr IVPB Q12 [facility] Last Admin: 08/30/16 13:47 Dose: 300 mls/hr Meropenem 500 mg/ Sodium (Chloride) 100 mls @ 100 mls/hr IVPB DAILY [facility] Last Admin: 08/30/16 08:36 Dose: 100 mls/hr Dobutamine HCl/Dextrose (Dobutamine/Dextrose 5% 500mg/250ml) 250 mls @ 16.67 mls/hr IV .Q15H [facility] PRN Reason: 5 MCG/KG/MIN Last Admin: 08/30/16 01:58 Dose: 16.67 mls/hr Sodium Chloride (Sodium Chloride 0.9%) 250 mls @ 999 mls/hr IV .Q16M [facility] Last Admin: 08/30/16 05:36 Dose: 999 mls/hr Insulin Detemir (Levemir) 20 units SC DAILY [facility] Last Admin: 08/30/16 11:18 Dose: Not Given Insulin Detemir (Levemir) 40 units SC [facility] Last Admin: 08/29/16 21:15 Dose: 40 units Insulin Human Lispro (Humalog) 20 units SC AC [facility] Lidocaine (Lidoderm) 1 ea TD DAILY [facility] Last Admin: 08/30/16 08:33 Dose: 1 ea Ondansetron HCl (Zofran Inj) 4 mg IVP Q6 PRN PRN Reason: Nausea/Vomiting Last Admin: 08/30/16 08:44 Dose: 4 mg Senna/Docusate Sodium (Senokot S 50 Mg-8.6 Mg) 3 tab PO HS PRN PRN Reason: Constipation Sennosides (Senokot Tab) 17.2 mg PO HS [facility] Sevelamer HCl (Renagel) 1,600 mg PO TID [facility] Last Admin: 08/30/16 13:53 Dose: 1,600 mg Sodium Phosphate (Fleet Enema) 135 ml [place] ONCE ONE Stop: 08/30/16 17:01 Vitamin B Complex/Vit C/Folic Acid (Nephro-Ajay) 1 tab PO DAILY [facility] Last Admin: 08/30/16 11:19 Dose: Not Given - Labs Labs: 08/30/16 14:35 08/30/16 13:43 PT 16.5 SECONDS (9.6-11.2) H 08/28/16 16:11 INR 1.59 (0.92-1.08) H 08/28/16 16:11 APTT 38.7 SECONDS (23.3-32.5) H 08/28/16 16:11
--- NOTE | 2016-08-30 18:03 | CARD ---
APPROVED REPORT EKG Measurement Heart [id number] [place] [id number] <Conclusion> Sinus tachycardia Possible Anterolateral infarct, age undetermined Abnormal ECG
--- NOTE | 2016-08-30 18:15 | CARD ---
APPROVED REPORT EKG Measurement Heart [id number] [place] [id number] <Conclusion> Sinus tachycardia Possible Anterior infarct, age undetermined Abnormal ECG
--- NOTE | 2016-08-30 19:13 | CP.PCM.CON ---
History of Present Illness - History of Present Illness History of Present Illness: Patient had an episode of complete unresponsiveness last night. Here are the nurse's notes: 23:00-Pt unresponsive to verbal and tactile stimuli during repositioning. Carotid pulse present- HR 145. Dr. Tompkins made aware. pt slowly back to being responsive to verbal stimuli. Dr. Tompkins saw and assessed pt. No facial droop or weakness observed. Pt remains tachycardic at 135 bpm. 250 ml NS bolus given. will continue to monitor. -23:36-Pt AAOX3. responds to verbal and tactile stimuli. Restless in bed. Xanax 0.25 mg PO given with (+) results. Initialized on 08/30/16 00:17 - END OF NOTE Patient was sent for CT of the brain. She became restless, felt she could not breath when lying down, felt "faint." She was returned to the ICU and felt better. No loss of consciousness noted. CT of brain was reported to be negative except for signs of IDDM [insulin dependent diabetes mellitus]. Will order carotid doppler studies Patient has developed a cough. CXR today shows improvement at right base. Tachycardia persists Earlier she had nausea and vomiting which responded to Zofran IV. She has no appetite and feels as if food "gets stuck." She has been constipated and was unable to move her bowels sitting on bedpan. She has had this problem in the past - Will give Fleets enema(s) today, 3 [place] S tonight, and the 1 [place] S daily hs. Acc to Dr. Bojorquez, Dr. Resendez saw patient today. He does not believe there is an osteomyelitis of the right heel. I am of the opposite opinion. I do not believe we can save the patient without at some point losing the right lower leg. For now we are dealing with E. Coli bacteria from the foot, blood, and Permacath cultures. Will get doppler ultrasound of the right lower leg. Will focus on aggressive IV antibiotic therapy. Diabetes mellitus is being fairly controlled on current regimen. SMA7 just sent . Objective - Vital Signs/Intake and Output Vital Signs (last 24 hours): Temp Pulse Resp BP Pulse Ox 98.1 F 129 H 17 121/72 95 08/30/16 12:07 08/30/16 12:07 08/30/16 12:07 08/30/16 12:07 08/30/16 12:07 Intake and Output: 08/30/16 08/30/16 06:59 18:59 Intake Total 1329 168 Balance 1329 168 - Medications Medications: Current Medications Acetaminophen (Tylenol 325mg Tab) 650 mg PO Q4 PRN PRN Reason: Fever >100.4 F Last Admin: 08/28/16 15:23 Dose: 650 mg Acetaminophen (Tylenol 325mg Tab) 650 mg PO Q4 PRN PRN Reason: Pain, moderate (4-7) Last Admin: 08/29/16 21:58 Dose: 650 mg Albuterol/Ipratropium (Duoneb 3 Mg/0.5 Mg (3 Ml) Ud) 3 ml INH RQ4 PRN PRN Reason: Shortness of Breath Last Admin: 08/29/16 21:29 Dose: 3 ml Apixaban (Eliquis) 5 mg PO BID [facility] PRN Reason: Protocol Last Admin: 08/30/16 08:23 Dose: 5 mg Aspirin (Ecotrin) 81 mg PO DAILY [facility] Last Admin: 08/30/16 08:32 Dose: 81 mg Atorvastatin Calcium (Lipitor) 40 mg PO DAILY [facility] Last Admin: 08/30/16 08:34 Dose: 40 mg Cinacalcet (Sensipar) 30 mg PO DAILY [facility] Last Admin: 08/30/16 08:36 Dose: 30 mg Collagenase (Santyl) 1 applic TOP DAILY [facility] Last Admin: 08/30/16 08:35 Dose: 1 applic Docusate Sodium (Colace) 200 mg PO BID [facility] Last Admin: 08/30/16 08:32 Dose: 200 mg Piperacillin Sod/Tazobactam (Sod 2.25 gm/ Sodium Chloride) 100 mls @ 100 mls/ hr IVPB Q12 [facility] Last Admin: 08/29/16 20:12 Dose: 100 mls/hr Linezolid (Zyvox 600mg/300ml D5w) 300 mls @ 300 mls/hr IVPB Q12 [facility] Last Admin: 08/30/16 13:47 Dose: 300 mls/hr Meropenem 500 mg/ Sodium (Chloride) 100 mls @ 100 mls/hr IVPB DAILY [facility] Last Admin: 08/30/16 08:36 Dose: 100 mls/hr Dobutamine HCl/Dextrose (Dobutamine/Dextrose 5% 500mg/250ml) 250 mls @ 16.67 mls/hr IV .Q15H [facility] PRN Reason: 5 MCG/KG/MIN Last Admin: 08/30/16 01:58 Dose: 16.67 mls/hr Sodium Chloride (Sodium Chloride 0.9%) 250 mls @ 999 mls/hr IV .Q16M [facility] Last Admin: 08/30/16 05:36 Dose: 999 mls/hr Insulin Detemir (Levemir) 20 units SC DAILY [facility] Last Admin: 08/30/16 11:18 Dose: Not Given Insulin Detemir (Levemir) 40 units SC [facility] Last Admin: 08/29/16 21:15 Dose: 40 units Insulin Human Lispro (Humalog) 20 units SC AC [facility] Lidocaine (Lidoderm) 1 ea TD DAILY [facility] Last Admin: 08/30/16 08:33 Dose: 1 ea Ondansetron HCl (Zofran Inj) 4 mg IVP Q6 PRN PRN Reason: Nausea/Vomiting Last Admin: 08/30/16 08:44 Dose: 4 mg Senna/Docusate Sodium (Senokot S 50 Mg-8.6 Mg) 3 tab PO HS PRN PRN Reason: Constipation Sevelamer HCl (Renagel) 1,600 mg PO TID [facility] Last Admin: 08/30/16 13:53 Dose: 1,600 mg Vitamin B Complex/Vit C/Folic Acid (Nephro-Ajay) 1 tab PO DAILY [facility] Last Admin: 08/30/16 11:19 Dose: Not Given - Labs Labs: 08/29/16 05:45 08/30/16 04:20 PT 16.5 SECONDS (9.6-11.2) H 08/28/16 16:11 INR 1.59 (0.92-1.08) H 08/28/16 16:11 APTT 38.7 SECONDS (23.3-32.5) H 08/28/16 16:11 - Constitutional Appears: Other (Less alert, sl. less articulate than usual. Not giving a good history.) - Head Exam Head Exam: NORMAL INSPECTION - Eye Exam Eye Exam: Normal appearance - Neck Exam Neck Exam: Normal Inspection Additional comments: Carotid pulses present, no bruits. - Respiratory Exam Additional comments: Improved breath sounds at the bases. Sl. increased secretions in large airways. - Cardiovascular Exam Cardiovascular Exam: REGULAR RHYTHM, +S1, +S2 - GI/Abdominal Exam GI & Abdominal Exam: Soft - Extremities Exam Additional comments: L hand is sl edematous, but it is warm and has no open lesions.. R hand is warm with no edema and no open lesions. - Back Exam Back Exam: NORMAL INSPECTION - Neurological Exam Neurological Exam: Alert, Awake, CN II-XII Intact, Oriented x3 Additional comments: No focal or lateralizing deficits. Gait not tested. - Skin Additional comments: Normal except as previously noted. Assessment and Plan (1) Unresponsiveness Assessment & Plan: See subjective. It is not clear if this was arrhythmogenic, hypotensive, TIA, or seizure. Patient is not a candidate for TPA. She is already on Eliquis and aspirin, and heparin cannot be given. Bleed has been ruled out by brain CT. Dr. Danii Keller will see the patient today in neurology consultation to give us guidance. Status: Acute (2) SIRS (systemic inflammatory response syndrome) Assessment & Plan: Improved, with lactic acid level stable, but still needs dobutamine. BP remains low and pulse rapid. Will recheck transaminases which were elevated ( presumably from shock liver) To continue intense antibiotic management. Status: Acute (3) Cellulitis of leg Assessment & Plan: Resolving. Status: Acute (4) Ulcer of right heel Assessment & Plan: Strongly suspect osteomyelitis based on air in the soft tissues on xray of the foot, poor tissue perfusion leading to lack of healing of ulcer on heel, positive foot culture with corresponding bacteremia, and overall boggy nature of necrotic tissue under the right heel. We have ordered an arterial doppler study of the lower extremities. The right foot is warm now, but the DP pulse is undetectable. Status: Acute (5) DM type 2 (diabetes mellitus, type 2) Assessment & Plan: Doing OK with current regimen - if there is concern regarding hypoglycemis ( e.g. if patient is not eating and there is uncertainty about giving insulin) the nurse may do an accuchek glucose using the right forearm. SMA 7 is pending. Status: Chronic (6) Coagulopathy Assessment & Plan: stable. Status: Chronic (7) ESRD (end stage renal disease) on dialysis Assessment & Plan: Patient tolerated HD today - maintained BP with removal of 1.5 liters of fluid. Status: Chronic (8) Hyperlipidemia Status: Acute (9) Peripheral arterial occlusive disease Status: Acute (10) Back pain Assessment & Plan: Improved. Status: Acute Past Patient History - Past Medical History & Family History Past Medical History?: Yes - Past Social History Smoking Status: Never Smoked - CARDIAC Hx Hypercholesterolemia: Yes Hx Hypertension: Yes Hx Peripheral Vascular Disease: Yes - PULMONARY Hx Respiratory Disorders: No - NEUROLOGICAL Hx Neurological Disorder: No - HEENT Hx HEENT Problems: Yes Hx Cataracts: Yes - RENAL Hx Chronic Kidney Disease: Yes Hx Dialysis: Yes Type of Dialysis Access: Right subclavian Permacath. Date of Last Dialysis Treatment: 08/26/16 - ENDOCRINE/METABOLIC Hx Endocrine Disorders: Yes Hx Diabetes Mellitus Type 2: Yes - HEMATOLOGICAL/ONCOLOGICAL Hx Blood Disorders: Yes (THROMBOPHILIA - Heparin Ab's, Protein C & S deficiencies.) Hx AIDS: No Hx Anemia: Yes Hx Blood Transfusions: Yes Hx Blood Transfusion Reaction: No Hx Hepatitis B: No Hx Hepatitis C: No Hx Human Immunodeficiency Virus (HIV): No - INTEGUMENTARY Hx Dermatological Problems: No - MUSCULOSKELETAL/RHEUMATOLOGICAL Hx Musculoskeletal Disorders: Yes (Charcot joint right ankle) Hx Back Pain: Yes Hx Falls: No Hx Osteomyelitis: Yes (R middle finger due to paronychial infection 2016) - GASTROINTESTINAL Hx Gastrointestinal Disorders: No Other/Comment: hx of anal fissure - GENITOURINARY/GYNECOLOGICAL Hx Genitourinary Disorders: No Other/Comment: Menorrhagia - PSYCHIATRIC Hx Substance Use: No - SURGICAL HISTORY Hx Surgeries: Yes (see Hx and PE) Hx Amputation: Yes Hx Arteriovenous Shunt: Yes (No more sites available. All previously failed.) Hx Vascular Access Device: Yes (R subclavian Permacath) Other/Comment: INSERTION OF DIALYSIS CATH;CATARACT-BOTH EYES;LEFT BELOW KNEE AMPUTATION;2ND TOE RIGHT FOOT AMPUTATION; RIGHT ANKLE SURGERY - ANESTHESIA Hx Anesthesia: Yes Hx Anesthesia Reactions: No Hx Malignant Hyperthermia: No Has any member of the family had a problem w/ anesthesia?: No Meds Allergies/Adverse Reactions: Allergies Allergy/AdvReac Type Severity Reaction Status Date / Time heparin Allergy Severe ANAPHYLAXIS Verified 08/27/16 14:01 Beta-Blockers Allergy ANAPHYLAXIS Verified 08/27/16 14:01 (Beta-Adrenergic Bloc - Medications Medications: Current Medications Acetaminophen (Tylenol 325mg Tab) 650 mg PO Q4 PRN PRN Reason: Fever >100.4 F Last Admin: 08/28/16 15:23 Dose: 650 mg Acetaminophen (Tylenol 325mg Tab) 650 mg PO Q4 PRN PRN Reason: Pain, moderate (4-7) Last Admin: 08/29/16 21:58 Dose: 650 mg Albuterol/Ipratropium (Duoneb 3 Mg/0.5 Mg (3 Ml) Ud) 3 ml INH RQ4 PRN PRN Reason: Shortness of Breath Last Admin: 08/29/16 21:29 Dose: 3 ml Apixaban (Eliquis) 5 mg PO BID [facility] PRN Reason: Protocol Last Admin: 08/30/16 16:45 Dose: 5 mg Aspirin (Ecotrin) 81 mg PO DAILY [facility] Last Admin: 08/30/16 08:32 Dose: 81 mg Atorvastatin Calcium (Lipitor) 40 mg PO DAILY [facility] Last Admin: 08/30/16 08:34 Dose: 40 mg Cinacalcet (Sensipar) 30 mg PO DAILY [facility] Last Admin: 08/30/16 08:36 Dose: 30 mg Collagenase (Santyl) 1 applic TOP DAILY [facility] Last Admin: 08/30/16 08:35 Dose: 1 applic Docusate Sodium (Colace) 200 mg PO BID [facility] Last Admin: 08/30/16 18:35 Dose: 200 mg Piperacillin Sod/Tazobactam (Sod 2.25 gm/ Sodium Chloride) 100 mls @ 100 mls/ hr IVPB Q12 [facility] Last Admin: 08/30/16 15:19 Dose: 100 mls/hr Linezolid (Zyvox 600mg/300ml D5w) 300 mls @ 300 mls/hr IVPB Q12 [facility] Last Admin: 08/30/16 13:47 Dose: 300 mls/hr Meropenem 500 mg/ Sodium (Chloride) 100 mls @ 100 mls/hr IVPB DAILY [facility] Last Admin: 08/30/16 08:36 Dose: 100 mls/hr Dobutamine HCl/Dextrose (Dobutamine/Dextrose 5% 500mg/250ml) 250 mls @ 16.67 mls/hr IV .Q15H [facility] PRN Reason: 5 MCG/KG/MIN Last Admin: 08/30/16 16:53 Dose: 16.67 mls/hr Sodium Chloride (Sodium Chloride 0.9%) 250 mls @ 999 mls/hr IV .Q16M [facility] Last Admin: 08/30/16 05:36 Dose: 999 mls/hr Insulin Detemir (Levemir) 20 units SC DAILY [facility] Last Admin: 08/30/16 11:18 Dose: Not Given Insulin Detemir (Levemir) 40 units SC HS [facility] Last Admin: 08/29/16 21:15 Dose: 40 units Insulin Human Lispro (Humalog) 20 units SC AC [facility] Last Admin: 08/30/16 16:41 Dose: 20 units Lidocaine (Lidoderm) 1 ea TD DAILY [facility] Last Admin: 08/30/16 08:33 Dose: 1 ea Ondansetron HCl (Zofran Inj) 4 mg IVP Q6 PRN PRN Reason: Nausea/Vomiting Last Admin: 08/30/16 08:44 Dose: 4 mg Senna/Docusate Sodium (Senokot S 50 Mg-8.6 Mg) 3 tab PO HS PRN PRN Reason: Constipation Sennosides (Senokot Tab) 17.2 mg PO [facility] Sevelamer HCl (Renagel) 1,600 mg PO TID [facility] Last Admin: 08/30/16 18:34 Dose: 1,600 mg Topiramate (Topamax) 50 mg PO BID [facility] Vitamin B Complex/Vit C/Folic Acid (Nephro-Ajay) 1 tab PO DAILY [facility] Last Admin: 08/30/16 11:19 Dose: Not Given Physical Exam - Neurological Exam Additional comments: Multiple amputations of her fingers, toes, left Below Knee Amputation Mental Status: Awake alert Oriented X 3 Normal memory X 3 Fluent coherent speech Cranial Nerves II to XII: No deficits Motor: Normal Tone, Power is 5-/5, symmetrically equal DTR 0/4 Toes down going on Right side, amputated on left side leg Sensory Reduced Peripherally Cerebellar: Normal FNT Results - Vital Signs Recent Vital Signs: Last Vital Signs Temp 99.6 F 08/30/16 16:00 Pulse 133 H 08/30/16 18:00 Resp 21 08/30/16 18:00 BP 146/56 L 08/30/16 18:00 Pulse Ox 97 08/30/16 18:00 - Labs Result Diagrams: 08/30/16 14:35 08/30/16 13:43 Labs: Laboratory Results - last 24 hr 08/30/16 08/30/16 08/30/16 01:30 04:20 13:43 WBC RBC Hgb Hct MCV MCH MCHC RDW Plt Count MPV Neut % (Auto) Lymph % (Auto) [place] % (Auto) Eos % (Auto) Baso % (Auto) Neut # Lymph # [place] # Eos # Baso # Sodium 140 140 Potassium 4.7 3.8 Chloride 99 97 L Carbon Dioxide 25 27 Anion Gap 20 20 BUN 30 H 15 Creatinine 6.4 H 3.4 H Est GFR ( Amer) 9 18 Est GFR (Non-Af Amer) 7 15 Random Glucose 240 H 115 H Lactic Acid 1.9 Calcium 8.6 8.4 Total Bilirubin 0.7 Direct Bilirubin 0.6 H AST 151 H D ALT 126 H Alkaline Phosphatase 144 H Troponin I 2.0200 H* 1.9300 H* Total Protein 6.6 Albumin 2.7 L Globulin 3.9 Albumin/Globulin Ratio 0.7 L 08/30/16 08/30/16 14:35 15:05 WBC 15.9 H RBC 3.28 L Hgb 9.5 L Hct 30.5 L MCV 93.2 D MCH 29.0 MCHC 31.2 L RDW 20.6 H Plt Count 135 MPV 11.1 Neut % (Auto) 81.0 H Lymph % (Auto) 4.7 L [place] % (Auto) 13.2 H Eos % (Auto) 0.7 Baso % (Auto) 0.4 Neut # 12.9 H Lymph # 0.8 L [place] # 2.1 H Eos # 0.1 Baso # 0.1 Sodium Potassium Chloride Carbon Dioxide Anion Gap BUN Creatinine Est GFR ( Amer) Est GFR (Non-Af Amer) Random Glucose Lactic Acid 1.2 Calcium Total Bilirubin 0.8 Direct Bilirubin 0.7 H AST 214 H D ALT 122 H Alkaline Phosphatase 124 Troponin I Total Protein 6.8 Albumin 2.9 L Globulin 3.9 Albumin/Globulin Ratio 0.7 L Assessment & Plan - Assessment and Plan (Free Text) Assessment: Syncopal Spell R/O Seizures Get EEG R/O CVA; Non Significant CT Brain ESRD HTN High Lipid Profile ESRD DM PVD Multiple Amputations R/O Vasovagal Syncope R/O Cardiac Problems R/O Septic Shock R/O Sleep Apnea and sleep related problems as she is Overweight to Obese F/U ID Consult Vascular Surgeon is needed to install a new line and a new AV shunt for HemoDialysis No Evidence of IC Hge at this Point Sensory Diabetic Peripheral Neuropathy
[2016-08-31] MEDS: Insulin Lispro (humaLOG) 100 Units/ml Inj SC SCH ×3 (06:57→17:46)
[2016-08-31] MEDS: DOBUTamine 500mg/250ml D5W 250 ML IV SCH ×2 (08:25→23:32)
[2016-08-31] MEDS: Linezolid 600 mg in D5W 300 ml 300 ML IVPB SCH ×2 (08:26→21:23)
--- NOTE | 2016-08-31 09:13 | CP.CCUPN ---
CCU Subjective - Physician Review Events Since Last Encounter (Free Text): 08/31/16 09:10 Patient awake, no distress, on O2 supplement by nasal canula, no fever, events reviewed CCU Objective - Vital Signs / Intake & Output Vital Signs (Last 4 hours): Vital Signs Temp Pulse Resp BP Pulse Ox 08/31/16 08:00 97.7 F 138 H 21 100/70 93 L Intake and Output (Last 8hrs): Intake & Output 08/30/16 08/31/16 08/31/16 22:59 06:59 14:59 Intake Total 1164 111 26 Balance 1164 111 26 Weight 270 lb Intake: IV 144 111 Intake, Piggyback 800 26 Oral 220 Other: # Bowel Movements 1 - Physical Exam Head: Positive for: Atraumatic, Normocephalic Pupils: Positive for: PERRL Pharnyx: Positive for: ERYTHEMA Neck: Positive for: Normal Range of Motion. Negative for: JVD Respiratory/Chest: Positive for: Other (Right SC dialysis catheter and PICC line on right arm) Cardiovascular: Positive for: Regular Rate and Rhythm, Normal S1, S2, Tachycardic Abdomen: Positive for: Normal Bowel Sounds, Other (soft and nontender) Upper Extremity: Positive for: Other (s/p amputation 3rd finger on right hand and , s/p amputated 2nd, 3rd, 4th digits on left hand Weak radial pulse) Lower Extremity: Positive for: Other (Intact LLE BKA stump, Right ankle Charcot joint, dressing intact, Right toes missing 2nd toe) Neurological: Positive for: Speech Normal, Other (alert and awake) Skin: Positive for: Warm, Normal Color Psychiatric: Positive for: Alert, Oriented x 3, Normal Insight, Normal Concentration - Medications Active Medications: Active Medications Generic Name Dose Route Start Last Admin Trade Name Freq PRN Reason Stop Dose Admin Acetaminophen 650 mg 08/28/16 00:09 08/28/16 15:23 Tylenol 325mg Tab PO 650 mg Q4 PRN Administration Fever >100.4 F Acetaminophen 650 mg 08/28/16 00:12 08/30/16 23:11 Tylenol 325mg Tab PO 650 mg Q4 PRN Administration Pain, moderate (4-7) Albuterol/Ipratropium 3 ml 08/29/16 18:39 08/29/16 21:29 Duoneb 3 Mg/0.5 Mg (3 Ml) Ud INH 3 ml RQ4 PRN Administration Shortness of Breath Apixaban 5 mg 08/28/16 09:15 08/30/16 16:45 Eliquis PO 5 mg BID JASPER Administration Protocol Aspirin 81 mg 08/28/16 09:00 08/30/16 08:32 Ecotrin PO 81 mg DAILY JASPER Administration Atorvastatin Calcium 40 mg 08/28/16 09:00 08/30/16 08:34 Lipitor PO 40 mg DAILY JASPER Administration Cinacalcet 30 mg 08/28/16 11:15 08/30/16 08:36 Sensipar PO 30 mg DAILY JASPER Administration Collagenase 1 applic 08/28/16 09:00 08/30/16 08:35 Santyl TOP 1 applic DAILY JASPER Administration Docusate Sodium 200 mg 08/28/16 09:00 08/30/16 18:35 Colace PO 200 mg BID JASPER Administration Piperacillin Sod/Tazobactam 100 mls @ 100 mls/hr 08/27/16 21:00 08/30/16 20:23 Sod 2.25 gm/ Sodium Chloride IVPB 100 mls/hr Q12 JASPER Administration Linezolid 300 mls @ 300 mls/hr 08/27/16 21:00 08/31/16 08:26 Zyvox 600mg/300ml D5w IVPB 300 mls/hr Q12 JASPER Administration Meropenem 500 mg/ Sodium 100 mls @ 100 mls/hr 08/29/16 09:00 08/30/16 08:36 Chloride IVPB 100 mls/hr DAILY JASPER Administration Dobutamine HCl/Dextrose 250 mls @ 16.67 mls/hr 08/28/16 18:15 08/31/16 08:25 Dobutamine/Dextrose 5% 500mg/250ml IV 16.67 mls/hr .Q15H JASPER Administration 5 MCG/KG/MIN Sodium Chloride 250 mls @ 999 mls/hr 08/29/16 23:30 08/30/16 05:36 Sodium Chloride 0.9% IV 999 mls/hr .Q16M JASPER Administration Insulin Detemir 20 units 08/29/16 10:00 08/30/16 11:18 Levemir SC Not Given DAILY JASPER Insulin Detemir 40 units 08/29/16 22:00 08/30/16 22:29 Levemir SC Not Given HS JASPER Insulin Human Lispro 20 units 08/30/16 16:30 08/31/16 06:57 Humalog SC Not Given AC JASPER Lidocaine 1 ea 08/29/16 13:30 08/30/16 08:33 Lidoderm TD 1 ea DAILY JASPER Administration Ondansetron HCl 4 mg 08/29/16 19:00 08/31/16 07:02 Zofran Inj IVP 4 mg Q6 PRN Administration Nausea/Vomiting Senna/Docusate Sodium 3 tab 08/28/16 00:07 Senokot S 50 Mg-8.6 Mg PO HS PRN Constipation Sennosides 17.2 mg 08/30/16 22:00 08/30/16 22:27 Senokot Tab PO 17.2 mg HS JASPER Administration Sevelamer HCl 1,600 mg 08/28/16 11:11 08/30/16 18:34 Renagel PO 1,600 mg TID JASPER Administration Topiramate 50 mg 08/30/16 18:45 08/30/16 20:24 Topamax PO 50 mg BID JASPER Administration Vitamin B Complex/Vit C/Folic Acid 1 tab 08/28/16 09:00 08/30/16 11:19 Nephro-Ajay PO Not Given DAILY JASPER - Patient Studies Lab Studies: Microbiology Studies 08/28/16 16:11 Blood Culture - Preliminary Blood-Thru Central Line NO GROWTH AFTER 48 HOURS 08/28/16 18:17 MRSA Culture (Admit) - Final Naris MRSA NOT DETECTED 08/29/16 10:51 Blood Culture - Preliminary Blood NO GROWTH AFTER 24 HOURS 08/28/16 16:11 Blood Culture - Final Blood-Thru Central Line Escherichia Coli Gram Stain - Final 08/27/16 20:09 Gram Stain - Final Foot - Right Wound Culture - Preliminary Escherichia Coli 08/27/16 17:45 Blood Culture - Final Blood-Venous Escherichia Coli Gram Stain - Final Lab Studies 08/31/16 08/31/16 08/30/16 Range/Units 05:53 04:52 21:48 WBC (4.8-10.8) K/uL RBC (3.80-5.20) Mil/uL Hgb (12.0-16.0) g/dL Hct (34.0-47.0) % MCV (81.0-99.0) fl MCH (27.0-31.0) pg MCHC (33.0-37.0) g/dL RDW (11.5-14.5) % Plt Count (130-400) K/uL MPV (7.2-11.7) fl Neut % (Auto) (50.0-75.0) % Lymph % (Auto) (20.0-40.0) % Simpson % (Auto) (0.0-10.0) % Eos % (Auto) (0.0-4.0) % Baso % (Auto) (0.0-2.0) % Neut # (1.8-7.0) K/uL Lymph # (1.0-4.3) K/uL Simpson # (0.0-0.8) K/uL Eos # (0.0-0.7) K/uL Baso # (0.0-0.2) K/uL ESR > 120 H (0-20) mm/hr Sodium (132-148) mmol/l Potassium (3.6-5.0) MMOL/L Chloride (98-107) mmol/L Carbon Dioxide (22-30) mmol/L Anion Gap (10-20) BUN (7-17) mg/dl Creatinine (0.7-1.2) mg/dL Est GFR ( Amer) Est GFR (Non-Af Amer) POC Glucose (mg/dL) 175 H 103 (65-110) mg/dL Random Glucose (65-105) mg/dL Lactic Acid (0.7-2.1) MMOL/L Calcium (8.4-10.2) mg/dL Total Bilirubin (0.2-1.3) mg/dl Direct Bilirubin (0.0-0.4) mg/ml AST (14-36) U/L ALT (9-52) U/L Alkaline Phosphatase (38-126) U/L Total Protein (6.3-8.2) G/DL Albumin (3.5-5.0) g/dL Globulin (2.2-3.9) gm/dL Albumin/Globulin Ratio (1.0-2.1) Vitamin B12 907 (239-931) pg/mL 08/30/16 08/30/16 08/30/16 Range/Units 15:05 14:35 13:43 WBC 15.9 H (4.8-10.8) K/uL RBC 3.28 L (3.80-5.20) Mil/uL Hgb 9.5 L (12.0-16.0) g/dL Hct 30.5 L (34.0-47.0) % MCV 93.2 D (81.0-99.0) fl MCH 29.0 (27.0-31.0) pg MCHC 31.2 L (33.0-37.0) g/dL RDW 20.6 H (11.5-14.5) % Plt Count 135 (130-400) K/uL MPV 11.1 (7.2-11.7) fl Neut % (Auto) 81.0 H (50.0-75.0) % Lymph % (Auto) 4.7 L (20.0-40.0) % Simpson % (Auto) 13.2 H (0.0-10.0) % Eos % (Auto) 0.7 (0.0-4.0) % Baso % (Auto) 0.4 (0.0-2.0) % Neut # 12.9 H (1.8-7.0) K/uL Lymph # 0.8 L (1.0-4.3) K/uL Simpson # 2.1 H (0.0-0.8) K/uL Eos # 0.1 (0.0-0.7) K/uL Baso # 0.1 (0.0-0.2) K/uL ESR (0-20) mm/hr Sodium 140 (132-148) mmol/l Potassium 3.8 (3.6-5.0) MMOL/L Chloride 97 L (98-107) mmol/L Carbon Dioxide 27 (22-30) mmol/L Anion Gap 20 (10-20) BUN 15 (7-17) mg/dl Creatinine 3.4 H (0.7-1.2) mg/dL Est GFR ( Amer) 18 Est GFR (Non-Af Amer) 15 POC Glucose (mg/dL) (65-110) mg/dL Random Glucose 115 H (65-105) mg/dL Lactic Acid 1.2 (0.7-2.1) MMOL/L Calcium 8.4 (8.4-10.2) mg/dL Total Bilirubin 0.8 0.7 (0.2-1.3) mg/dl Direct Bilirubin 0.7 H 0.6 H (0.0-0.4) mg/ml AST 214 H D 151 H D (14-36) U/L ALT 122 H 126 H (9-52) U/L Alkaline Phosphatase 124 144 H (38-126) U/L Total Protein 6.8 6.6 (6.3-8.2) G/DL Albumin 2.9 L 2.7 L (3.5-5.0) g/dL Globulin 3.9 3.9 (2.2-3.9) gm/dL Albumin/Globulin Ratio 0.7 L 0.7 L (1.0-2.1) Vitamin B12 (239-931) pg/mL 08/30/16 Range/Units 04:20 WBC (4.8-10.8) K/uL RBC (3.80-5.20) Mil/uL Hgb (12.0-16.0) g/dL Hct (34.0-47.0) % MCV (81.0-99.0) fl MCH (27.0-31.0) pg MCHC (33.0-37.0) g/dL RDW (11.5-14.5) % Plt Count (130-400) K/uL MPV (7.2-11.7) fl Neut % (Auto) (50.0-75.0) % Lymph % (Auto) (20.0-40.0) % Simpson % (Auto) (0.0-10.0) % Eos % (Auto) (0.0-4.0) % Baso % (Auto) (0.0-2.0) % Neut # (1.8-7.0) K/uL Lymph # (1.0-4.3) K/uL Simpson # (0.0-0.8) K/uL Eos # (0.0-0.7) K/uL Baso # (0.0-0.2) K/uL ESR (0-20) mm/hr Sodium 140 (132-148) mmol/l Potassium 4.7 (3.6-5.0) MMOL/L Chloride 99 (98-107) mmol/L Carbon Dioxide 25 (22-30) mmol/L Anion Gap 20 (10-20) BUN 30 H (7-17) mg/dl Creatinine 6.4 H (0.7-1.2) mg/dL Est GFR ( Amer) 9 Est GFR (Non-Af Amer) 7 POC Glucose (mg/dL) (65-110) mg/dL Random Glucose 240 H (65-105) mg/dL Lactic Acid (0.7-2.1) MMOL/L Calcium 8.6 (8.4-10.2) mg/dL Total Bilirubin (0.2-1.3) mg/dl Direct Bilirubin (0.0-0.4) mg/ml AST (14-36) U/L ALT (9-52) U/L Alkaline Phosphatase (38-126) U/L Total Protein (6.3-8.2) G/DL Albumin (3.5-5.0) g/dL Globulin (2.2-3.9) gm/dL Albumin/Globulin Ratio (1.0-2.1) Vitamin B12 (239-931) pg/mL Laboratory Results - last 24 hr 08/30/16 08/30/16 08/30/16 04:20 13:43 14:35 WBC 15.9 H RBC 3.28 L Hgb 9.5 L Hct 30.5 L MCV 93.2 D MCH 29.0 MCHC 31.2 L RDW 20.6 H Plt Count 135 MPV 11.1 Neut % (Auto) 81.0 H Lymph % (Auto) 4.7 L Simpson % (Auto) 13.2 H Eos % (Auto) 0.7 Baso % (Auto) 0.4 Neut # 12.9 H Lymph # 0.8 L Simpson # 2.1 H Eos # 0.1 Baso # 0.1 ESR Sodium 140 140 Potassium 4.7 3.8 Chloride 99 97 L Carbon Dioxide 25 27 Anion Gap 20 20 BUN 30 H 15 Creatinine 6.4 H 3.4 H Est GFR ( Amer) 9 18 Est GFR (Non-Af Amer) 7 15 POC Glucose (mg/dL) Random Glucose 240 H 115 H Lactic Acid 1.2 Calcium 8.6 8.4 Total Bilirubin 0.7 Direct Bilirubin 0.6 H AST 151 H D ALT 126 H Alkaline Phosphatase 144 H Total Protein 6.6 Albumin 2.7 L Globulin 3.9 Albumin/Globulin Ratio 0.7 L Vitamin B12 08/30/16 08/30/16 08/31/16 15:05 21:48 04:52 WBC RBC Hgb Hct MCV MCH MCHC RDW Plt Count MPV Neut % (Auto) Lymph % (Auto) Simpson % (Auto) Eos % (Auto) Baso % (Auto) Neut # Lymph # Simpson # Eos # Baso # ESR Sodium Potassium Chloride Carbon Dioxide Anion Gap BUN Creatinine Est GFR ( Amer) Est GFR (Non-Af Amer) POC Glucose (mg/dL) 103 175 H Random Glucose Lactic Acid Calcium Total Bilirubin 0.8 Direct Bilirubin 0.7 H AST 214 H D ALT 122 H Alkaline Phosphatase 124 Total Protein 6.8 Albumin 2.9 L Globulin 3.9 Albumin/Globulin Ratio 0.7 L Vitamin B12 08/31/16 05:53 WBC RBC Hgb Hct MCV MCH MCHC RDW Plt Count MPV Neut % (Auto) Lymph % (Auto) Simpson % (Auto) Eos % (Auto) Baso % (Auto) Neut # Lymph # Simpson # Eos # Baso # ESR > 120 H Sodium Potassium Chloride Carbon Dioxide Anion Gap BUN Creatinine Est GFR ( Amer) Est GFR (Non-Af Amer) POC Glucose (mg/dL) Random Glucose Lactic Acid Calcium Total Bilirubin Direct Bilirubin AST ALT Alkaline Phosphatase Total Protein Albumin Globulin Albumin/Globulin Ratio Vitamin B12 907 EKG/Cardiology Studies: Cardiology / EKG Studies 08/30/16 09:49 ELECTROCARDIOGRAM Routine Reason For Exam: SEP DR. OWEN Fingerstick Blood Sugar Results: 175 Critical Care Progress Note - Nutrition Nutrition: Nutrition Category Date Time Status Renal Diet [DIET] Diets 08/30/16 Dinner Active Assessment/Plan - Assessment and Plan (Free Text) Assessment: A/P Cellulites, sepsis, ESRD, DM, PVD, anemia - Continue antibiotics - Dialysis as per renal - Pressors as needed - Continue meds
[2016-08-31] MEDS: Insulin Detemir 100 Units/ml Inj SC SCH ×2 (09:17→21:25)
[2016-08-31] MEDS: Lidocaine 5% Patch TD SCH (09:18)
[2016-08-31] MEDS: Multivitamin Vitamin B Complex (Nephro-Vite) Tab PO SCH (09:19)
[2016-08-31 10:10] LABS: BASO # 0.1 K/uL (0.0-0.2); BASO % 0.8 % (0.0-2.0); EOS # 0.1 K/uL (0.0-0.7); EOS % 0.8 % (0.0-4.0); HEMATOCRIT 28.2 % (34.0-47.0); LYMPH % 7.1 % (20.0-40.0); MEAN CORPUSCULAR HEMOGLOBIN 29.4 pg (27.0-31.0); MEAN PLATELET VOLUME 11.4 fl (7.2-11.7); MONO # 1.3 K/uL (0.0-0.8); MONO % 9.3 % (0.0-10.0); NEUT # 11.6 K/uL (1.8-7.0); NRBC % 0.1 % (0.0-0.0); PLATELET COUNT 130 K/uL (130-400); RED CELL DISTRIBUTION WIDTH 20.8 % (11.5-14.5); WHITE BLOOD COUNT 14.1 K/uL (4.8-10.8)
[2016-08-31 10:24] LABS: ALB/GLOB RATIO 0.7 (1.0-2.1); CALCIUM 8.4 mg/dL (8.4-10.2); POTASSIUM 4.4 MMOL/L (3.6-5.0); TOTAL PROTEIN 7.2 G/DL (6.3-8.2)
--- NOTE | 2016-08-31 10:37 | PN ---
DATE: 08/31/2016 ROOM: 433 ICU SUBJECTIVE: This is a 46-year-old female with recent uncontrolled type 2 insulin-requiring diabetes, now being followed closely for hemodynamic and metabolic monitoring in the ICU because of recent gra m-negative bacteremia with an underlying nonhealing right heel neuropathic ulcer with supervening acu te right leg cellulitis. She is also being followed closely for metabolic management because of rece nt hyperglycemic accelerations, which has improved accordingly as noted. Her latest glucose levels h ave ranged from 103 to 175 mg/dL. Her latest chemistries include a BUN of 15, sodium 140, potassium 3.8, chloride 97, CO2 27, glucose 115, and creatinine 3.4. Her liver function studies are still elev ated as noted, but improved accordingly. So at this time, we will continue the modified basal and cris salazar insulin regimen as given with Levemir given as basal insulin twice daily with 20 units at 10 a.m. 14 units at 10 p.m. daily as ordered. We will continue also the Humalog given as 20 units subQ t.i. d. before meals as ordered. We will obtain serial chemistries and supplement accordingly as needed. We will follow. Irene Ambrose MD cc: [id number] TT: 08/31/2016 10:36:15 Confirmation # [id number] Dictation # [id number]
[2016-08-31 10:50] LABS: EOSINOPHIL 1 % (0-7); NEUTROPHIL 77 % (42-75); TOTAL CELLS COUNTED 100
[2016-08-31 10:51] LABS: GIANT PLATELETS PRESENT; LARGE PLATELETS PRESENT
--- NOTE | 2016-08-31 10:54 | CP.PCM.PN ---
Subjective - Date & Time of Evaluation Date of Evaluation: 08/31/16 Time of Evaluation: 10:49 - Subjective Subjective: Neurology consultation by Dr. Danii Keller appreciated. I have ordered EEG. Patient was started on Topamax. Chills and hot sweats alternating. Patient is septic from infection of right heel, most probably osteomyelitis. I have not discussed this yet with the patient, but I plan to request a surgical consultation on Friday with a view to possible right BK amputation. Is it harder to tell a mother that her daughter has or to tell the daughter that another part of her must be amputated. is natural; amputation is not. Continues on IV antibiotics per Wills, hemodialysis per Dr. Guadarrama, diabetic management by Dr. Ambrose. Cardiac management by Dr. Richard Shepard. Hopefully we can stop the dobutamine as I am concerned about possible peripheral vasoconstriction. ??? Patient has had episodes of nausea and anorexia. Transaminases have come down. Will start IV Protonix. Hopefully this is not gallbladder related. Objective - Vital Signs/Intake and Output Vital Signs (last 24 hours): Temp Pulse Resp BP Pulse Ox 97.7 F 127 H 28 H 95/51 L 94 L 08/31/16 08:00 08/31/16 09:00 08/31/16 09:00 08/31/16 09:00 08/31/16 09:00 Intake and Output: 08/31/16 08/31/16 06:59 18:59 Intake Total 585 26 Balance 585 26 - Medications Medications: Current Medications Acetaminophen (Tylenol 325mg Tab) 650 mg PO Q4 PRN PRN Reason: Fever >100.4 F Last Admin: 08/28/16 15:23 Dose: 650 mg Acetaminophen (Tylenol 325mg Tab) 650 mg PO Q4 PRN PRN Reason: Pain, moderate (4-7) Last Admin: 08/30/16 23:11 Dose: 650 mg Albuterol/Ipratropium (Duoneb 3 Mg/0.5 Mg (3 Ml) Ud) 3 ml INH RQ4 PRN PRN Reason: Shortness of Breath Last Admin: 08/29/16 21:29 Dose: 3 ml Apixaban (Eliquis) 5 mg PO BID JASPER PRN Reason: Protocol Last Admin: 08/31/16 09:17 Dose: 5 mg Aspirin (Ecotrin) 81 mg PO DAILY [facility] Last Admin: 08/31/16 09:17 Dose: 81 mg Atorvastatin Calcium (Lipitor) 40 mg PO DAILY [facility] Last Admin: 08/31/16 09:19 Dose: 40 mg Cinacalcet (Sensipar) 30 mg PO DAILY [facility] Last Admin: 08/31/16 09:20 Dose: 30 mg Collagenase (Santyl) 1 applic TOP DAILY [facility] Last Admin: 08/30/16 08:35 Dose: 1 applic Docusate Sodium (Colace) 200 mg PO BID [facility] Last Admin: 08/31/16 09:16 Dose: Not Given Piperacillin Sod/Tazobactam (Sod 2.25 gm/ Sodium Chloride) 100 mls @ 100 mls/ hr IVPB Q12 [facility] Last Admin: 08/30/16 20:23 Dose: 100 mls/hr Linezolid (Zyvox 600mg/300ml D5w) 300 mls @ 300 mls/hr IVPB Q12 [facility] Last Admin: 08/31/16 08:26 Dose: 300 mls/hr Meropenem 500 mg/ Sodium (Chloride) 100 mls @ 100 mls/hr IVPB DAILY [facility] Last Admin: 08/30/16 08:36 Dose: 100 mls/hr Dobutamine HCl/Dextrose (Dobutamine/Dextrose 5% 500mg/250ml) 250 mls @ 16.67 mls/hr IV .Q15H [facility] PRN Reason: 5 MCG/KG/MIN Last Admin: 08/31/16 08:25 Dose: 16.67 mls/hr Sodium Chloride (Sodium Chloride 0.9%) 250 mls @ 999 mls/hr IV .Q16M [facility] Last Admin: 08/30/16 05:36 Dose: 999 mls/hr Insulin Detemir (Levemir) 20 units SC DAILY [facility] Last Admin: 08/31/16 09:17 Dose: Not Given Insulin Detemir (Levemir) 40 units SC HS [facility] Last Admin: 08/30/16 22:29 Dose: Not Given Insulin Human Lispro (Humalog) 20 units SC AC [facility] Last Admin: 08/31/16 06:57 Dose: Not Given Lidocaine (Lidoderm) 1 ea TD DAILY [facility] Last Admin: 08/31/16 09:18 Dose: 1 ea Ondansetron HCl (Zofran Inj) 4 mg IVP Q6 PRN PRN Reason: Nausea/Vomiting Last Admin: 08/31/16 07:02 Dose: 4 mg Pantoprazole Sodium (Protonix Inj) 40 mg IVP DAILY [facility] Senna/Docusate Sodium (Senokot S 50 Mg-8.6 Mg) 3 tab PO HS PRN PRN Reason: Constipation Sennosides (Senokot Tab) 17.2 mg PO HS [facility] Last Admin: 08/30/16 22:27 Dose: 17.2 mg Sevelamer HCl (Renagel) 1,600 mg PO TID [facility] Last Admin: 08/31/16 09:19 Dose: 1,600 mg Topiramate (Topamax) 50 mg PO BID [facility] Last Admin: 08/31/16 09:20 Dose: 50 mg Vitamin B Complex/Vit C/Folic Acid (Nephro-Ajay) 1 tab PO DAILY [facility] Last Admin: 08/31/16 09:19 Dose: 1 tab - Labs Labs: 08/31/16 10:05 08/31/16 10:05 PT 16.5 SECONDS (9.6-11.2) H 08/28/16 16:11 INR 1.59 (0.92-1.08) H 08/28/16 16:11 APTT 38.7 SECONDS (23.3-32.5) H 08/28/16 16:11 - Constitutional Appears: Chronically Ill, Other (In moderate distress) - Head Exam Head Exam: NORMAL INSPECTION - Eye Exam Eye Exam: Normal appearance - ENT Exam ENT Exam: Mucous Membranes Moist - Neck Exam Neck Exam: Normal Inspection Additional comments: R subclavian Permacath intact. - Respiratory Exam Respiratory Exam: Clear to Ausculation Bilateral, NORMAL BREATHING PATTERN - Cardiovascular Exam Cardiovascular Exam: REGULAR RHYTHM - GI/Abdominal Exam GI & Abdominal Exam: Soft, Normal Bowel Sounds - Extremities Exam Additional comments: Left had is still sl. edematous and cool. No palpable pulses. Right foot in dressing and protective boot. R Upper arm PICC line intact. - Back Exam Back Exam: NORMAL INSPECTION - Neurological Exam Neurological Exam: Alert, Awake, Oriented x3 (Gait not tested.) Additional comments: Gait not tested. - Skin Additional comments: Except as noted above, skin is moist (sweating) and warm. Assessment and Plan (1) Unresponsiveness Assessment & Plan: See subjective. Status: Acute (2) SIRS (systemic inflammatory response syndrome) Assessment & Plan: See subjective. Status: Acute (3) Cellulitis of leg Status: Acute (4) Ulcer of right heel Assessment & Plan: See subjective. Probably osteomyelitis. Status: Acute (5) DM type 2 (diabetes mellitus, type 2) Assessment & Plan: See subjective. Status: Chronic (6) Coagulopathy Assessment & Plan: Continue Eliquis and ASA. Status: Chronic (7) ESRD (end stage renal disease) on dialysis Assessment & Plan: See subjective. Status: Chronic (8) Hyperlipidemia Status: Acute (9) Peripheral arterial occlusive disease Assessment & Plan: See subjective. Status: Acute
[2016-08-31] MEDS: Meropenem 500 MG in Sodium Chloride 0.9% 100 ML IVPB SCH (10:55)
--- NOTE | 2016-08-31 13:28 | CP.PCM.PN ---
Subjective - Date & Time of Evaluation Date of Evaluation: 08/31/16 Time of Evaluation: 12:40 - Subjective Subjective: Alert. Feels weak BP 117/60 on pressors Objective - Vital Signs/Intake and Output Vital Signs (last 24 hours): Temp Pulse Resp BP Pulse Ox 97.7 F 124 H 13 122/55 L 93 L 08/31/16 08:00 08/31/16 11:00 08/31/16 11:00 08/31/16 11:00 08/31/16 11:00 Intake and Output: 08/31/16 08/31/16 06:59 18:59 Intake Total 585 362 Balance 585 362 - Medications Medications: Current Medications Acetaminophen (Tylenol 325mg Tab) 650 mg PO Q4 PRN PRN Reason: Fever >100.4 F Last Admin: 08/28/16 15:23 Dose: 650 mg Acetaminophen (Tylenol 325mg Tab) 650 mg PO Q4 PRN PRN Reason: Pain, moderate (4-7) Last Admin: 08/30/16 23:11 Dose: 650 mg Albuterol/Ipratropium (Duoneb 3 Mg/0.5 Mg (3 Ml) Ud) 3 ml INH RQ4 PRN PRN Reason: Shortness of Breath Last Admin: 08/29/16 21:29 Dose: 3 ml Apixaban (Eliquis) 5 mg PO BID [facility] PRN Reason: Protocol Last Admin: 08/31/16 09:17 Dose: 5 mg Aspirin (Ecotrin) 81 mg PO DAILY [facility] Last Admin: 08/31/16 09:17 Dose: 81 mg Atorvastatin Calcium (Lipitor) 40 mg PO DAILY [facility] Last Admin: 08/31/16 09:19 Dose: 40 mg Cinacalcet (Sensipar) 30 mg PO DAILY [facility] Last Admin: 08/31/16 09:20 Dose: 30 mg Collagenase (Santyl) 1 applic TOP DAILY [facility] Last Admin: 08/30/16 08:35 Dose: 1 applic Docusate Sodium (Colace) 200 mg PO BID [facility] Last Admin: 08/31/16 09:16 Dose: Not Given Piperacillin Sod/Tazobactam (Sod 2.25 gm/ Sodium Chloride) 100 mls @ 100 mls/ hr IVPB Q12 [facility] Last Admin: 08/30/16 20:23 Dose: 100 mls/hr Linezolid (Zyvox 600mg/300ml D5w) 300 mls @ 300 mls/hr IVPB Q12 [facility] Last Admin: 08/31/16 08:26 Dose: 300 mls/hr Meropenem 500 mg/ Sodium (Chloride) 100 mls @ 100 mls/hr IVPB DAILY [facility] Last Admin: 08/31/16 10:55 Dose: 100 mls/hr Dobutamine HCl/Dextrose (Dobutamine/Dextrose 5% 500mg/250ml) 250 mls @ 16.67 mls/hr IV .Q15H [facility] PRN Reason: 5 MCG/KG/MIN Last Admin: 08/31/16 08:25 Dose: 16.67 mls/hr Sodium Chloride (Sodium Chloride 0.9%) 250 mls @ 999 mls/hr IV .Q16M [facility] Last Admin: 08/30/16 05:36 Dose: 999 mls/hr Insulin Detemir (Levemir) 20 units SC DAILY [facility] Last Admin: 08/31/16 09:17 Dose: Not Given Insulin Detemir (Levemir) 40 units SC HS [facility] Last Admin: 08/30/16 22:29 Dose: Not Given Insulin Human Lispro (Humalog) 20 units SC AC [facility] Last Admin: 08/31/16 06:57 Dose: Not Given Lidocaine (Lidoderm) 1 ea TD DAILY [facility] Last Admin: 08/31/16 09:18 Dose: 1 ea Ondansetron HCl (Zofran Inj) 4 mg IVP Q6 PRN PRN Reason: Nausea/Vomiting Last Admin: 08/31/16 07:02 Dose: 4 mg Pantoprazole Sodium (Protonix Inj) 40 mg IVP DAILY [facility] Last Admin: 08/31/16 11:03 Dose: 40 mg Senna/Docusate Sodium (Senokot S 50 Mg-8.6 Mg) 3 tab PO HS PRN PRN Reason: Constipation Sennosides (Senokot Tab) 17.2 mg PO HS [facility] Last Admin: 08/30/16 22:27 Dose: 17.2 mg Sevelamer HCl (Renagel) 1,600 mg PO TID [facility] Last Admin: 08/31/16 09:19 Dose: 1,600 mg Topiramate (Topamax) 50 mg PO BID [facility] Last Admin: 08/31/16 09:20 Dose: 50 mg Vitamin B Complex/Vit C/Folic Acid (Nephro-Ajay) 1 tab PO DAILY [facility] Last Admin: 08/31/16 09:19 Dose: 1 tab - Labs Labs: 08/31/16 10:05 08/31/16 10:05 PT 16.5 SECONDS (9.6-11.2) H 08/28/16 16:11 INR 1.59 (0.92-1.08) H 08/28/16 16:11 APTT 38.7 SECONDS (23.3-32.5) H 08/28/16 16:11 - Respiratory Exam Respiratory Exam: NORMAL BREATHING PATTERN Additional comments: Lungs clear - Cardiovascular Exam Cardiovascular Exam: Tachycardia, REGULAR RHYTHM - Extremities Exam Additional comments: 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
[2016-08-31] MEDS: Santyl Collagenase OINTMENT TOP SCH (13:32)
--- NOTE | 2016-08-31 14:05 | CP.PCM.PN ---
Subjective - Date & Time of Evaluation Date of Evaluation: 08/31/16 Time of Evaluation: 13:00 - Subjective Subjective: 46 yo female patient S&E in ICU today. Pt seen resting comfortably in bed at time of visit. Multipodus boot donned to right foot with dressing c/d/i. Complains of small amount of calf pain but much improved, denies any pain or discomfort to the foot today. Said she had some chills overnight, denies n/v/cob /cp. Objective - Vital Signs/Intake and Output Vital Signs (last 24 hours): Temp Pulse Resp BP Pulse Ox 97.7 F 124 H 13 122/55 L 93 L 08/31/16 08:00 08/31/16 11:00 08/31/16 11:00 08/31/16 11:00 08/31/16 11:00 Intake and Output: 08/31/16 08/31/16 06:59 18:59 Intake Total 585 362 Balance 585 362 - Medications Medications: Current Medications Acetaminophen (Tylenol 325mg Tab) 650 mg PO Q4 PRN PRN Reason: Fever >100.4 F Last Admin: 08/28/16 15:23 Dose: 650 mg Acetaminophen (Tylenol 325mg Tab) 650 mg PO Q4 PRN PRN Reason: Pain, moderate (4-7) Last Admin: 08/30/16 23:11 Dose: 650 mg Albuterol/Ipratropium (Duoneb 3 Mg/0.5 Mg (3 Ml) Ud) 3 ml INH RQ4 PRN PRN Reason: Shortness of Breath Last Admin: 08/29/16 21:29 Dose: 3 ml Apixaban (Eliquis) 5 mg PO BID [facility] PRN Reason: Protocol Last Admin: 08/31/16 09:17 Dose: 5 mg Aspirin (Ecotrin) 81 mg PO DAILY [facility] Last Admin: 08/31/16 09:17 Dose: 81 mg Atorvastatin Calcium (Lipitor) 40 mg PO DAILY [facility] Last Admin: 08/31/16 09:19 Dose: 40 mg Cinacalcet (Sensipar) 30 mg PO DAILY [facility] Last Admin: 08/31/16 09:20 Dose: 30 mg Collagenase (Santyl) 1 applic TOP DAILY [facility] Last Admin: 08/31/16 13:32 Dose: Not Given Docusate Sodium (Colace) 200 mg PO BID [facility] Last Admin: 08/31/16 09:16 Dose: Not Given Piperacillin Sod/Tazobactam (Sod 2.25 gm/ Sodium Chloride) 100 mls @ 100 mls/ hr IVPB Q12 [facility] Last Admin: 08/31/16 10:00 Dose: 100 mls/hr Linezolid (Zyvox 600mg/300ml D5w) 300 mls @ 300 mls/hr IVPB Q12 [facility] Last Admin: 08/31/16 08:26 Dose: 300 mls/hr Meropenem 500 mg/ Sodium (Chloride) 100 mls @ 100 mls/hr IVPB DAILY [facility] Last Admin: 08/31/16 10:55 Dose: 100 mls/hr Dobutamine HCl/Dextrose (Dobutamine/Dextrose 5% 500mg/250ml) 250 mls @ 16.67 mls/hr IV .Q15H [facility] PRN Reason: 5 MCG/KG/MIN Last Admin: 08/31/16 08:25 Dose: 16.67 mls/hr Sodium Chloride (Sodium Chloride 0.9%) 250 mls @ 999 mls/hr IV .Q16M [facility] Last Admin: 08/30/16 05:36 Dose: 999 mls/hr Insulin Detemir (Levemir) 20 units SC DAILY [facility] Last Admin: 08/31/16 09:17 Dose: Not Given Insulin Detemir (Levemir) 40 units SC [facility] Last Admin: 08/30/16 22:29 Dose: Not Given Insulin Human Lispro (Humalog) 20 units SC AC [facility] Last Admin: 08/31/16 13:31 Dose: 20 units Lidocaine (Lidoderm) 1 ea TD DAILY [facility] Last Admin: 08/31/16 09:18 Dose: 1 ea Ondansetron HCl (Zofran Inj) 4 mg IVP Q6 PRN PRN Reason: Nausea/Vomiting Last Admin: 08/31/16 07:02 Dose: 4 mg Pantoprazole Sodium (Protonix Inj) 40 mg IVP DAILY [facility] Last Admin: 08/31/16 11:03 Dose: 40 mg Senna/Docusate Sodium (Senokot S 50 Mg-8.6 Mg) 3 tab PO HS PRN PRN Reason: Constipation Sennosides (Senokot Tab) 17.2 mg PO [facility] Last Admin: 08/30/16 22:27 Dose: 17.2 mg Sevelamer HCl (Renagel) 1,600 mg PO TID [facility] Last Admin: 08/31/16 13:31 Dose: 1,600 mg Topiramate (Topamax) 50 mg PO BID [facility] Last Admin: 08/31/16 09:20 Dose: 50 mg Vitamin B Complex/Vit C/Folic Acid (Nephro-Ajay) 1 tab PO DAILY [facility] Last Admin: 08/31/16 09:19 Dose: 1 tab - Labs Labs: 08/31/16 10:05 08/31/16 10:05 PT 16.5 SECONDS (9.6-11.2) H 08/28/16 16:11 INR 1.59 (0.92-1.08) H 08/28/16 16:11 APTT 38.7 SECONDS (23.3-32.5) H 08/28/16 16:11 - Constitutional Appears: Non-toxic, No Acute Distress - Extremities Exam Additional comments: RLE exam: VASC- DP/PT pulse non-palpableskin temp runs warm to warm, capillary refill < 5 sec to digits x 5, moderate 2+ pitting edema noted to anterior aspect of leg and dorsum of foot NEURO-gross pedal sensation is diminished DERM- superficial eschar noted to plantar aspect of heel, appears dry w/ slight serous drainage noted, no purulent drainage, no increased warmth, no local or ascending erythema. ORTHO- slight tenderness noted to deep palpation of calf/posterior leg, patient able to flex and extend all digits, severe varus deformity of ankle noted - Neurological Exam Neurological Exam: Alert, Awake, Oriented x3 - Psychiatric Exam Psychiatric exam: Normal Affect, Normal Mood Assessment and Plan - Assessment and Plan (Free Text) Assessment: 46 yo female patient w/ pmhx of HTN, ESRD (on dialysis), coagulopathy, DM, charcot right foot PVD admitted for sepsis, right heel ulceration, painful right posterior leg Plan: --Pt seen and evaluated in ICU --Plan discussed in detail w/ Dr. Pruett --Chart,vitals reviewed: afebrile, wbc trending down 14.1 (down from 15.9) --ESR >120 --Venous duplex US (RLE): negative for DVT --Right foot x-ray: diffuse soft tissue swelling, severe neuropathic tiffanie changes. No evidence acute articular or osseous abnormality. --Blood cx: E. coli --Central line cath: E. coli --Right wound cx: E. coli --f/u arterial duplex --IV abx per ID Dr. Greenberg: meropenem 500 mg qd, zosyn 2.25 gq12, linezolid 600 mg q12. Will discuss plan --Pain meds per primary (dilaudid) --On eliquis 5 mg po bid --Tylenol for fever --Right foot dressing changed, santyl held again today, DSD only. Offloading prevalon boot to be applied to right heel at all times in bed --Per primary, requesting surgical consult for possible BKA --Per Dr. 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 Would recommend foot/ ankle MRI first prior to any plans for amputation --Podiatry will continue to monitor closely.
--- NOTE | 2016-08-31 14:21 | CT ---
PROCEDURE: CT Chest and abdomen without intravenous and oral contrast HISTORY: Esophageal obstruction and bowel obstruction COMPARISON: None. TECHNIQUE: This CT exam was performed using one or more of the following dose reduction techniques: Automated exposure control, adjustment of the mA and/or kV according to patient size, and/or use of iterative reconstruction technique. CT scan of the chest and abdomen was performed without administration of oral or intravenous contrast. Coronal and sagittal reformatted images were obtained. Radiation dose: Total exam DLP = 1008.53 mGy-cm. FINDINGS: CT CHEST: LUNGS: There is confluent airspace disease in both lower lobes and multifocal atelectasis/scarring in both lungs. There are low lung volumes. There are no endobronchial lesions. MEDIASTINUM: The aorta is normal in caliber. There is mild cardiomegaly. There atherosclerotic calcifications in the coronary arteries. There is no pericardial effusion. There is no evidence of esophageal dilatation or obstruction. LYMPH NODES: There is no pathologic mediastinal lymphadenopathy. PLEURA: No large pleural effusions or pneumothorax. BONES: Within normal limits for the patient's age. OTHER FINDINGS:: None. CT ABDOMEN: LIVER: There is mild hepatomegaly. No intrahepatic biliary ductal dilatation. GALLBLADDER AND BILE DUCTS: There are small gallstones. PANCREAS: The pancreas is normal in size. No gross lesion or ductal dilatation. SPLEEN: There is borderline splenomegaly. ADRENALS: Both adrenal glands are normal in size without discrete nodule. KIDNEYS AND URETERS: Both kidneys are atrophic. There is a 5.0 cm cyst in the lower pole of the right kidney with layering high attenuation. No hydronephrosis or nephrolithiasis. VASCULATURE: There are advanced atherosclerotic vascular calcifications. No aortic aneurysm. STOMACH AND BOWEL: The small bowel loops are normal in caliber. There is moderate amount of stool in the colon. PERITONEUM: No free fluid. No free air. LYMPH NODES: No enlarged lymph nodes. BONES: No acute fracture. Within normal limits for the patient's age. OTHER FINDINGS: None. IMPRESSION: 1. Confluent airspace disease in both lower lobes. Pneumonia cannot be excluded. Follow-up after medical management is recommended to ensure resolution. 2. Mild hepatosplenomegaly. 3. 5 cm hemorrhagic cyst in the lower pole of the right kidney. 4. Constipation. No evidence of bowel obstruction. 5. No evidence of esophageal dilatation or obstruction.
--- NOTE | 2016-08-31 15:35 | US ---
PROCEDURE: Duplex ultrasound of the carotid and vertebral arteries. HISTORY: syncopal episodes COMPARISON: None available. TECHNIQUE: Grayscale and duplex Doppler evaluation of the cervical carotid and vertebral arteries were performed. The common carotid, carotid bifurcations and cervical ICA and proximal ECA were evaluated. The vertebral arteries were evaluated for gross patency and direction. FINDINGS: There are calcified atherosclerotic plaques in the right carotid bulb and interval thickening in the right proximal internal carotid artery. RIGHT CAROTID ARTERIES: Common Carotid Artery: Normal. Maximal flow velocity of 80.7 cm/s. Carotid Bifurcation: Normal. Internal Carotid Artery:Normal. Maximal flow velocity of 70.9 cm/s. External Carotid Artery (proximal branches): Normal. Maximal flow velocity of cm/s. ICA/CCA Ratio: 1.0 LEFT CAROTID ARTERIES: Common Carotid Artery: Normal. Maximal flow velocity of 93.6 88.3 cm/s. Carotid Bifurcation: Normal. Internal Carotid Artery:Normal. Maximal flow velocity of 55.5 cm/s. External Carotid Artery (proximal branches): Normal. Maximal flow velocity of 59.1 cm/s. ICA/CCA Ratio: 0.6 VERTEBRAL ARTERIES: Right Vertebral Artery: Patent. Antegrade flow. Left Vertebral Artery: Patent. Antegrade flow. OTHER FINDINGS: None. IMPRESSION: No hemodynamically significant stenosis by peak systolic velocity criteria.
--- NOTE | 2016-08-31 17:21 | CP.PCM.PN ---
Subjective - Date & Time of Evaluation Date of Evaluation: 08/31/16 Time of Evaluation: 16:44 - Subjective Subjective: ID NOTE PATIENT IS ALERT STATES THAT SHE FEELS WARM ON PRESSORS WBC IS STILL ELEVATED 14.1,LEFT SHIFT,3 BANDS LFTs ARE ELEVATED BUT IMPROVED CONTINUE AMIKACIN POST HD(RANDOM AMIKACIN LEVEL ORDERED SERIAL BLOOD CULTURED MRI ORDERED CASE REVIEWED C PODIATRY AND MAY NEED ALL LINES REMOVED AND CHANGED Objective - Vital Signs/Intake and Output Vital Signs (last 24 hours): Temp Pulse Resp BP Pulse Ox 97.9 F 123 H 18 84/72 L 100 08/31/16 12:00 08/31/16 14:00 08/31/16 14:00 08/31/16 14:00 08/31/16 14:00 Intake and Output: 08/31/16 08/31/16 06:59 18:59 Intake Total 585 734 Balance 585 734 - Medications Medications: Current Medications Acetaminophen (Tylenol 325mg Tab) 650 mg PO Q4 PRN PRN Reason: Fever >100.4 F Last Admin: 08/28/16 15:23 Dose: 650 mg Acetaminophen (Tylenol 325mg Tab) 650 mg PO Q4 PRN PRN Reason: Pain, moderate (4-7) Last Admin: 08/30/16 23:11 Dose: 650 mg Albuterol/Ipratropium (Duoneb 3 Mg/0.5 Mg (3 Ml) Ud) 3 ml INH RQ4 PRN PRN Reason: Shortness of Breath Last Admin: 08/29/16 21:29 Dose: 3 ml Apixaban (Eliquis) 5 mg PO BID [facility] PRN Reason: Protocol Last Admin: 08/31/16 09:17 Dose: 5 mg Aspirin (Ecotrin) 81 mg PO DAILY [facility] Last Admin: 08/31/16 09:17 Dose: 81 mg Atorvastatin Calcium (Lipitor) 40 mg PO DAILY [facility] Last Admin: 08/31/16 09:19 Dose: 40 mg Cinacalcet (Sensipar) 30 mg PO DAILY [facility] Last Admin: 08/31/16 09:20 Dose: 30 mg Collagenase (Santyl) 1 applic TOP DAILY [facility] Last Admin: 08/31/16 13:32 Dose: Not Given Docusate Sodium (Colace) 200 mg PO BID [facility] Last Admin: 08/31/16 09:16 Dose: Not Given Piperacillin Sod/Tazobactam (Sod 2.25 gm/ Sodium Chloride) 100 mls @ 100 mls/ hr IVPB Q12 [facility] Last Admin: 08/31/16 10:00 Dose: 100 mls/hr Linezolid (Zyvox 600mg/300ml D5w) 300 mls @ 300 mls/hr IVPB Q12 [facility] Last Admin: 08/31/16 08:26 Dose: 300 mls/hr Meropenem 500 mg/ Sodium (Chloride) 100 mls @ 100 mls/hr IVPB DAILY [facility] Last Admin: 08/31/16 10:55 Dose: 100 mls/hr Dobutamine HCl/Dextrose (Dobutamine/Dextrose 5% 500mg/250ml) 250 mls @ 16.67 mls/hr IV .Q15H [facility] PRN Reason: 5 MCG/KG/MIN Last Admin: 08/31/16 08:25 Dose: 16.67 mls/hr Sodium Chloride (Sodium Chloride 0.9%) 250 mls @ 999 mls/hr IV .Q16M [facility] Last Admin: 08/30/16 05:36 Dose: 999 mls/hr Amikacin Sulfate 250 mg/ (Sodium Chloride) 251 mls @ 250 mls/hr IVPB MWF [facility] Insulin Detemir (Levemir) 20 units SC DAILY [facility] Last Admin: 08/31/16 09:17 Dose: Not Given Insulin Detemir (Levemir) 40 units SC HS [facility] Last Admin: 08/30/16 22:29 Dose: Not Given Insulin Human Lispro (Humalog) 20 units SC AC [facility] Last Admin: 08/31/16 13:31 Dose: 20 units Lidocaine (Lidoderm) 1 ea TD DAILY [facility] Last Admin: 08/31/16 09:18 Dose: 1 ea Ondansetron HCl (Zofran Inj) 4 mg IVP Q6 PRN PRN Reason: Nausea/Vomiting Last Admin: 08/31/16 07:02 Dose: 4 mg Pantoprazole Sodium (Protonix Inj) 40 mg IVP DAILY [facility] Last Admin: 08/31/16 11:03 Dose: 40 mg Senna/Docusate Sodium (Senokot S 50 Mg-8.6 Mg) 3 tab PO HS PRN PRN Reason: Constipation Sennosides (Senokot Tab) 17.2 mg PO HS [facility] Last Admin: 08/30/16 22:27 Dose: 17.2 mg Sevelamer HCl (Renagel) 1,600 mg PO TID [facility] Last Admin: 08/31/16 13:31 Dose: 1,600 mg Topiramate (Topamax) 50 mg PO BID [facility] Last Admin: 08/31/16 09:20 Dose: 50 mg Vitamin B Complex/Vit C/Folic Acid (Nephro-Ajay) 1 tab PO DAILY [facility] Last Admin: 08/31/16 09:19 Dose: 1 tab - Labs Labs: 08/31/16 10:05 08/31/16 10:05 PT 16.5 SECONDS (9.6-11.2) H 08/28/16 16:11 INR 1.59 (0.92-1.08) H 08/28/16 16:11 APTT 38.7 SECONDS (23.3-32.5) H 08/28/16 16:11
--- NOTE | 2016-08-31 21:41 | CP.PCM.PN ---
Subjective - Date & Time of Evaluation Date of Evaluation: 08/31/16 Time of Evaluation: 20:00 - Subjective Subjective: Patient is not reported to have any syncopal spells or seizures. She is comfortable on Topamax. She needs a change of her line and AV Shunt, while having a hard Venous access. She might need an amputation of her Right BKA due to PVD. Objective - Vital Signs/Intake and Output Vital Signs (last 24 hours): Temp Pulse Resp BP Pulse Ox 97.7 F 120 H 21 104/80 95 08/31/16 20:00 08/31/16 19:00 08/31/16 19:00 08/31/16 19:00 08/31/16 19:00 Intake and Output: 08/31/16 09/01/16 18:59 06:59 Intake Total 1070 Balance 1070 - Medications Medications: Current Medications Acetaminophen (Tylenol 325mg Tab) 650 mg PO Q4 PRN PRN Reason: Fever >100.4 F Last Admin: 08/28/16 15:23 Dose: 650 mg Acetaminophen (Tylenol 325mg Tab) 650 mg PO Q4 PRN PRN Reason: Pain, moderate (4-7) Last Admin: 08/30/16 23:11 Dose: 650 mg Albuterol/Ipratropium (Duoneb 3 Mg/0.5 Mg (3 Ml) Ud) 3 ml INH RQ4 PRN PRN Reason: Shortness of Breath Last Admin: 08/29/16 21:29 Dose: 3 ml Apixaban (Eliquis) 5 mg PO BID [facility] PRN Reason: Protocol Last Admin: 08/31/16 17:46 Dose: 5 mg Aspirin (Ecotrin) 81 mg PO DAILY [facility] Last Admin: 08/31/16 09:17 Dose: 81 mg Atorvastatin Calcium (Lipitor) 40 mg PO DAILY [facility] Last Admin: 08/31/16 09:19 Dose: 40 mg Cinacalcet (Sensipar) 30 mg PO DAILY [facility] Last Admin: 08/31/16 09:20 Dose: 30 mg Collagenase (Santyl) 1 applic TOP DAILY [facility] Last Admin: 08/31/16 13:32 Dose: Not Given Docusate Sodium (Colace) 200 mg PO BID [facility] Last Admin: 08/31/16 17:46 Dose: 200 mg Piperacillin Sod/Tazobactam (Sod 2.25 gm/ Sodium Chloride) 100 mls @ 100 mls/ hr IVPB Q12 [facility] Last Admin: 08/31/16 21:18 Dose: 100 mls/hr Linezolid (Zyvox 600mg/300ml D5w) 300 mls @ 300 mls/hr IVPB Q12 [facility] Last Admin: 08/31/16 21:23 Dose: 300 mls/hr Meropenem 500 mg/ Sodium (Chloride) 100 mls @ 100 mls/hr IVPB DAILY [facility] Last Admin: 08/31/16 10:55 Dose: 100 mls/hr Dobutamine HCl/Dextrose (Dobutamine/Dextrose 5% 500mg/250ml) 250 mls @ 16.67 mls/hr IV .Q15H [facility] PRN Reason: 5 MCG/KG/MIN Last Admin: 08/31/16 08:25 Dose: 16.67 mls/hr Sodium Chloride (Sodium Chloride 0.9%) 250 mls @ 999 mls/hr IV .Q16M [facility] Last Admin: 08/30/16 05:36 Dose: 999 mls/hr Amikacin Sulfate 250 mg/ (Sodium Chloride) 251 mls @ 250 mls/hr IVPB MWF [facility] Insulin Detemir (Levemir) 20 units SC DAILY [facility] Last Admin: 08/31/16 09:17 Dose: Not Given Insulin Detemir (Levemir) 40 units SC [facility] Last Admin: 08/31/16 21:25 Dose: 40 units Insulin Human Lispro (Humalog) 20 units SC AC [facility] Last Admin: 08/31/16 17:46 Dose: 20 units Lidocaine (Lidoderm) 1 ea TD DAILY [facility] Last Admin: 08/31/16 09:18 Dose: 1 ea Ondansetron HCl (Zofran Inj) 4 mg IVP Q6 PRN PRN Reason: Nausea/Vomiting Last Admin: 08/31/16 07:02 Dose: 4 mg Pantoprazole Sodium (Protonix Inj) 40 mg IVP DAILY [facility] Last Admin: 08/31/16 11:03 Dose: 40 mg Senna/Docusate Sodium (Senokot S 50 Mg-8.6 Mg) 3 tab PO HS PRN PRN Reason: Constipation Sennosides (Senokot Tab) 17.2 mg PO [facility] Last Admin: 08/31/16 21:25 Dose: 17.2 mg Sevelamer HCl (Renagel) 1,600 mg PO TID [facility] Last Admin: 08/31/16 17:47 Dose: 1,600 mg Topiramate (Topamax) 50 mg PO BID [facility] Last Admin: 08/31/16 17:47 Dose: 50 mg Vitamin B Complex/Vit C/Folic Acid (Nephro-Ajay) 1 tab PO DAILY [facility] Last Admin: 08/31/16 09:19 Dose: 1 tab - Labs Labs: 08/31/16 10:05 08/31/16 10:05 PT 16.5 SECONDS (9.6-11.2) H 08/28/16 16:11 INR 1.59 (0.92-1.08) H 08/28/16 16:11 APTT 38.7 SECONDS (23.3-32.5) H 08/28/16 16:11
[2016-08-31 21:49] LABS: FOLATE 14.7 ng/mL
[2016-09-01] MEDS: Insulin Lispro (humaLOG) 100 Units/ml Inj SC SCH ×3 (06:32→16:51)
--- NOTE | 2016-09-01 07:21 | CP.CCUPN ---
CCU Subjective - Physician Review Events Since Last Encounter (Free Text): 09/01/16 07:20 Patient awake, no distress, on O2 supplement by nasal canula, no fever, events reviewed CCU Objective - Vital Signs / Intake & Output Vital Signs (Last 4 hours): Vital Signs Temp Pulse Resp BP Pulse Ox 09/01/16 06:00 115 H 25 H 102/48 L 97 09/01/16 05:00 117 H 21 126/64 100 09/01/16 04:00 97.9 F 117 H 27 H 128/44 L 100 Intake and Output (Last 8hrs): Intake & Output 08/31/16 09/01/16 09/01/16 22:59 06:59 14:59 Intake Total 736 Balance 736 Intake: Intake, Piggyback 436 Oral 300 Other: # Bowel Movements 1 1 - Physical Exam Head: Positive for: Atraumatic, Normocephalic Pupils: Positive for: PERRL Pharnyx: Positive for: ERYTHEMA Neck: Positive for: Normal Range of Motion. 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 and , s/p amputated 2nd, 3rd, 4th digits on left hand Weak radial pulse) Lower Extremity: Positive for: Other (Intact LLE BKA stump, Right ankle Charcot joint, dressing intact, Right toes missing 2nd toe) Neurological: Positive for: Speech Normal, Other (alert and awake) Skin: Positive for: Warm, Normal Color Psychiatric: Positive for: Alert, Oriented x 3, Normal Insight, Normal Concentration - Medications Active Medications: Active Medications Generic Name Dose Route Start Last Admin Trade Name Freq PRN Reason Stop Dose Admin Acetaminophen 650 mg 08/28/16 00:09 08/28/16 15:23 Tylenol 325mg Tab PO 650 mg Q4 PRN Administration Fever >100.4 F Acetaminophen 650 mg 08/28/16 00:12 08/30/16 23:11 Tylenol 325mg Tab PO 650 mg Q4 PRN Administration Pain, moderate (4-7) Albuterol/Ipratropium 3 ml 08/29/16 18:39 08/29/16 21:29 Duoneb 3 Mg/0.5 Mg (3 Ml) Ud INH 3 ml RQ4 PRN Administration Shortness of Breath Apixaban 5 mg 08/28/16 09:15 08/31/16 17:46 Eliquis PO 5 mg BID JASPER Administration Protocol Aspirin 81 mg 08/28/16 09:00 08/31/16 09:17 Ecotrin PO 81 mg DAILY JASPER Administration Atorvastatin Calcium 40 mg 08/28/16 09:00 08/31/16 09:19 Lipitor PO 40 mg DAILY JASPRE Administration Cinacalcet 30 mg 08/28/16 11:15 08/31/16 09:20 Sensipar PO 30 mg DAILY JASPER Administration Collagenase 1 applic 08/28/16 09:00 08/31/16 13:32 Santyl TOP Not Given DAILY JASPER Docusate Sodium 200 mg 08/28/16 09:00 08/31/16 17:46 Colace PO 200 mg BID JASPER Administration Piperacillin Sod/Tazobactam 100 mls @ 100 mls/hr 08/27/16 21:00 08/31/16 21:18 Sod 2.25 gm/ Sodium Chloride IVPB 100 mls/hr Q12 JASPER Administration Linezolid 300 mls @ 300 mls/hr 08/27/16 21:00 08/31/16 21:23 Zyvox 600mg/300ml D5w IVPB 300 mls/hr Q12 JASPER Administration Meropenem 500 mg/ Sodium 100 mls @ 100 mls/hr 08/29/16 09:00 08/31/16 10:55 Chloride IVPB 100 mls/hr DAILY JASPER Administration Dobutamine HCl/Dextrose 250 mls @ 16.67 mls/hr 08/28/16 18:15 08/31/16 23:32 Dobutamine/Dextrose 5% 500mg/250ml IV 16.67 mls/hr .Q15H JASPER Administration 5 MCG/KG/MIN Sodium Chloride 250 mls @ 999 mls/hr 08/29/16 23:30 08/30/16 05:36 Sodium Chloride 0.9% IV 999 mls/hr .Q16M JASPER Administration Amikacin Sulfate 250 mg/ 251 mls @ 250 mls/hr 09/02/16 09:00 Sodium Chloride IVPB MWF JASPER Insulin Detemir 40 units 08/29/16 22:00 08/31/16 21:25 Levemir SC 40 units HS JASPER Administration Insulin Detemir 30 units 09/01/16 10:00 Levemir SC DAILY JASPER Insulin Human Lispro 26 units 09/01/16 07:30 09/01/16 06:32 Humalog SC 26 u AC JASPER Administration Lidocaine 1 ea 08/29/16 13:30 08/31/16 09:18 Lidoderm TD 1 ea DAILY JASPER Administration Ondansetron HCl 4 mg 08/29/16 19:00 09/01/16 06:15 Zofran Inj IVP 4 mg Q6 PRN Administration Nausea/Vomiting Pantoprazole Sodium 40 mg 08/31/16 11:00 08/31/16 11:03 Protonix Inj IVP 40 mg DAILY JASPER Administration Senna/Docusate Sodium 3 tab 08/28/16 00:07 Senokot S 50 Mg-8.6 Mg PO HS PRN Constipation Sennosides 17.2 mg 08/30/16 22:00 08/31/16 21:25 Senokot Tab PO 17.2 mg HS JASPER Administration Sevelamer HCl 1,600 mg 08/28/16 11:11 08/31/16 17:47 Renagel PO 1,600 mg TID JASPER Administration Topiramate 50 mg 08/30/16 18:45 08/31/16 17:47 Topamax PO 50 mg BID JASPER Administration Vitamin B Complex/Vit C/Folic Acid 1 tab 08/28/16 09:00 08/31/16 09:19 Nephro-Ajay PO 1 tab DAILY JASPER Administration - Patient Studies Lab Studies: Microbiology Studies 08/28/16 16:11 Blood Culture - Preliminary Blood-Thru Central Line NO GROWTH AFTER 3 DAYS 08/29/16 18:32 Group A Strep Throat Culture - Final Throat NO BETA STREP GROUP A ISOLATED. 08/29/16 10:51 Blood Culture - Preliminary Blood NO GROWTH AFTER 48 HOURS Lab Studies 09/01/16 08/31/16 08/31/16 Range/Units 05:20 21:21 16:12 WBC (4.8-10.8) K/uL RBC (3.80-5.20) Mil/uL Hgb (12.0-16.0) g/dL Hct (34.0-47.0) % MCV (81.0-99.0) fl MCH (27.0-31.0) pg MCHC (33.0-37.0) g/dL RDW (11.5-14.5) % Plt Count (130-400) K/uL MPV (7.2-11.7) fl Neut % (Auto) (50.0-75.0) % Lymph % (Auto) (20.0-40.0) % Lyman % (Auto) (0.0-10.0) % Eos % (Auto) (0.0-4.0) % Baso % (Auto) (0.0-2.0) % Neut # (1.8-7.0) K/uL Lymph # (1.0-4.3) K/uL Lyman # (0.0-0.8) K/uL Eos # (0.0-0.7) K/uL Baso # (0.0-0.2) K/uL Neutrophils % (Manual) (42-75) % Band Neutrophils % (0-2) % Lymphocytes % (Manual) (20-50) % Monocytes % (Manual) (0-10) % Eosinophils % (Manual) (0-7) % Platelet Estimate (NORMAL) Large Platelets Giant Platelets Hypochromasia (manual) Anisocytosis (manual) Sodium (132-148) mmol/l Potassium (3.6-5.0) MMOL/L Chloride (98-107) mmol/L Carbon Dioxide (22-30) mmol/L Anion Gap (10-20) BUN (7-17) mg/dl Creatinine (0.7-1.2) mg/dL Est GFR ( Amer) Est GFR (Non-Af Amer) POC Glucose (mg/dL) 231 H 409 H* 449 H* (65-110) mg/dL Random Glucose (65-105) mg/dL Calcium (8.4-10.2) mg/dL Total Bilirubin (0.2-1.3) mg/dl AST (14-36) U/L ALT (9-52) U/L Alkaline Phosphatase (38-126) U/L C-React Prot High Sens (1.00-3.00) mg/L Total Protein (6.3-8.2) G/DL Albumin (3.5-5.0) g/dL Globulin (2.2-3.9) gm/dL Albumin/Globulin Ratio (1.0-2.1) 25-OH Vitamin D Total (30.0-100.0) NG/ML Folate ng/mL 08/31/16 08/31/16 08/31/16 Range/Units 11:57 10:05 05:53 WBC 14.1 H (4.8-10.8) K/uL RBC 3.07 L (3.80-5.20) Mil/uL Hgb 9.0 L (12.0-16.0) g/dL Hct 28.2 L (34.0-47.0) % MCV 92.0 (81.0-99.0) fl MCH 29.4 (27.0-31.0) pg MCHC 32.0 L (33.0-37.0) g/dL RDW 20.8 H (11.5-14.5) % Plt Count 130 (130-400) K/uL MPV 11.4 (7.2-11.7) fl Neut % (Auto) 82.0 H (50.0-75.0) % Lymph % (Auto) 7.1 L (20.0-40.0) % Lyman % (Auto) 9.3 (0.0-10.0) % Eos % (Auto) 0.8 (0.0-4.0) % Baso % (Auto) 0.8 (0.0-2.0) % Neut # 11.6 H (1.8-7.0) K/uL Lymph # 1.0 (1.0-4.3) K/uL Lyman # 1.3 H (0.0-0.8) K/uL Eos # 0.1 (0.0-0.7) K/uL Baso # 0.1 (0.0-0.2) K/uL Neutrophils % (Manual) 77 H (42-75) % Band Neutrophils % 3 H (0-2) % Lymphocytes % (Manual) 10 L (20-50) % Monocytes % (Manual) 9 (0-10) % Eosinophils % (Manual) 1 (0-7) % Platelet Estimate Normal (NORMAL) Large Platelets Present Giant Platelets Present Hypochromasia (manual) Slight Anisocytosis (manual) Slight Sodium 139 (132-148) mmol/l Potassium 4.4 (3.6-5.0) MMOL/L Chloride 97 L (98-107) mmol/L Carbon Dioxide 25 (22-30) mmol/L Anion Gap 21 H (10-20) BUN 24 H (7-17) mg/dl Creatinine 5.4 H (0.7-1.2) mg/dL Est GFR ( Amer) 10 Est GFR (Non-Af Amer) 9 POC Glucose (mg/dL) 346 H (65-110) mg/dL Random Glucose 149 H (65-105) mg/dL Calcium 8.4 (8.4-10.2) mg/dL Total Bilirubin 1.0 (0.2-1.3) mg/dl AST 116 H D (14-36) U/L ALT 98 H (9-52) U/L Alkaline Phosphatase 148 H (38-126) U/L C-React Prot High Sens > 15.00 H (1.00-3.00) mg/L Total Protein 7.2 (6.3-8.2) G/DL Albumin 3.0 L (3.5-5.0) g/dL Globulin 4.2 H (2.2-3.9) gm/dL Albumin/Globulin Ratio 0.7 L (1.0-2.1) 25-OH Vitamin D Total < 12.8 L (30.0-100.0) NG/ML Folate 14.7 ng/mL Laboratory Results - last 24 hr 08/31/16 08/31/16 08/31/16 05:53 10:05 11:57 WBC 14.1 H RBC 3.07 L Hgb 9.0 L Hct 28.2 L MCV 92.0 MCH 29.4 MCHC 32.0 L RDW 20.8 H Plt Count 130 MPV 11.4 Neut % (Auto) 82.0 H Lymph % (Auto) 7.1 L Lyman % (Auto) 9.3 Eos % (Auto) 0.8 Baso % (Auto) 0.8 Neut # 11.6 H Lymph # 1.0 Lyman # 1.3 H Eos # 0.1 Baso # 0.1 Neutrophils % (Manual) 77 H Band Neutrophils % 3 H Lymphocytes % (Manual) 10 L Monocytes % (Manual) 9 Eosinophils % (Manual) 1 Platelet Estimate Normal Large Platelets Present Giant Platelets Present Hypochromasia (manual) Slight Anisocytosis (manual) Slight Sodium 139 Potassium 4.4 Chloride 97 L Carbon Dioxide 25 Anion Gap 21 H BUN 24 H Creatinine 5.4 H Est GFR ( Amer) 10 Est GFR (Non-Af Amer) 9 POC Glucose (mg/dL) 346 H Random Glucose 149 H Calcium 8.4 Total Bilirubin 1.0 AST 116 H D ALT 98 H Alkaline Phosphatase 148 H C-React Prot High Sens > 15.00 H Total Protein 7.2 Albumin 3.0 L Globulin 4.2 H Albumin/Globulin Ratio 0.7 L 25-OH Vitamin D Total < 12.8 L Folate 14.7 08/31/16 08/31/16 09/01/16 16:12 21:21 05:20 WBC RBC Hgb Hct MCV MCH MCHC RDW Plt Count MPV Neut % (Auto) Lymph % (Auto) Lyman % (Auto) Eos % (Auto) Baso % (Auto) Neut # Lymph # Lyman # Eos # Baso # Neutrophils % (Manual) Band Neutrophils % Lymphocytes % (Manual) Monocytes % (Manual) Eosinophils % (Manual) Platelet Estimate Large Platelets Giant Platelets Hypochromasia (manual) Anisocytosis (manual) Sodium Potassium Chloride Carbon Dioxide Anion Gap BUN Creatinine Est GFR ( Amer) Est GFR (Non-Af Amer) POC Glucose (mg/dL) 449 H* 409 H* 231 H Random Glucose Calcium Total Bilirubin AST ALT Alkaline Phosphatase C-React Prot High Sens Total Protein Albumin Globulin Albumin/Globulin Ratio 25-OH Vitamin D Total Folate Fingerstick Blood Sugar Results: 231 Critical Care Progress Note - Nutrition Nutrition: Nutrition Category Date Time Status Renal Diet [DIET] Diets 08/30/16 Dinner Active Assessment/Plan - Assessment and Plan (Free Text) Assessment: A/P Cellulites, sepsis, ESRD, DM, PVD, anemia - Continue antibiotics - Dialysis as per renal - Pressors as needed - Continue meds - MRI Rt foot - Podiatry follow up
[2016-09-01 07:33] LABS: BASO # 0.1 K/uL (0.0-0.2); BASO % 0.4 % (0.0-2.0); EOS # 0.1 K/uL (0.0-0.7); EOS % 0.8 % (0.0-4.0); LYMPH # 0.8 K/uL (1.0-4.3); LYMPH % 4.8 % (20.0-40.0); MEAN CELL VOLUME 92.4 fl (81.0-99.0); MEAN CORPUSCULAR HEMOGLOBIN 29.3 pg (27.0-31.0); MEAN CORPUSCULAR HGB CONC 31.7 g/dL (33.0-37.0); MEAN PLATELET VOLUME 11.1 fl (7.2-11.7); MONO # 1.2 K/uL (0.0-0.8); MONO % 7.7 % (0.0-10.0); NEUT # 13.9 K/uL (1.8-7.0); NEUT % 86.3 % (50.0-75.0); WHITE BLOOD COUNT 16.1 K/uL (4.8-10.8)
[2016-09-01 07:43] LABS: ALB/GLOB RATIO 0.7 (1.0-2.1); BILIRUBIN,TOTAL 0.8 mg/dl (0.2-1.3); CALCIUM 8.2 mg/dL (8.4-10.2); POTASSIUM 4.2 MMOL/L (3.6-5.0); TOTAL PROTEIN 6.9 G/DL (6.3-8.2)
--- NOTE | 2016-09-01 07:52 | CP.PCM.PN ---
Subjective - Date & Time of Evaluation Date of Evaluation: 09/01/16 Time of Evaluation: 08:00 - Subjective Subjective: PODIATRY PROGRESS NOTE FOR DR. EDWARDS: 46 yo female patient S&E in ICU today. Pt seen resting comfortably in bed eating breakfast at time of visit. Reports better sleep last night, says she feels somewhat better today. Pt appears AAOx3, appears less lethargic today. Reports persistent pain to the right lower leg, says pain meds do help. Denies fever or chills overnight, denies n/v/sob/cp. Seen with dressing c/d/i to the right foot and multipodus boot in place. Objective - Vital Signs/Intake and Output Vital Signs (last 24 hours): Temp Pulse Resp BP Pulse Ox 97.9 F 115 H 25 H 102/48 L 97 09/01/16 04:00 09/01/16 06:00 09/01/16 06:00 09/01/16 06:00 09/01/16 06:00 Intake and Output: 09/01/16 09/01/16 06:59 18:59 Intake Total 400 Balance 400 - Medications Medications: Current Medications Acetaminophen (Tylenol 325mg Tab) 650 mg PO Q4 PRN PRN Reason: Fever >100.4 F Last Admin: 08/28/16 15:23 Dose: 650 mg Acetaminophen (Tylenol 325mg Tab) 650 mg PO Q4 PRN PRN Reason: Pain, moderate (4-7) Last Admin: 08/30/16 23:11 Dose: 650 mg Albuterol/Ipratropium (Duoneb 3 Mg/0.5 Mg (3 Ml) Ud) 3 ml INH RQ4 PRN PRN Reason: Shortness of Breath Last Admin: 08/29/16 21:29 Dose: 3 ml Apixaban (Eliquis) 5 mg PO BID JASPER PRN Reason: Protocol Last Admin: 08/31/16 17:46 Dose: 5 mg Aspirin (Ecotrin) 81 mg PO DAILY [facility] Last Admin: 08/31/16 09:17 Dose: 81 mg Atorvastatin Calcium (Lipitor) 40 mg PO DAILY [facility] Last Admin: 08/31/16 09:19 Dose: 40 mg Cinacalcet (Sensipar) 30 mg PO DAILY [facility] Last Admin: 08/31/16 09:20 Dose: 30 mg Collagenase (Santyl) 1 applic TOP DAILY [facility] Last Admin: 08/31/16 13:32 Dose: Not Given Docusate Sodium (Colace) 200 mg PO BID [facility] Last Admin: 08/31/16 17:46 Dose: 200 mg Piperacillin Sod/Tazobactam (Sod 2.25 gm/ Sodium Chloride) 100 mls @ 100 mls/ hr IVPB Q12 [facility] Last Admin: 08/31/16 21:18 Dose: 100 mls/hr Linezolid (Zyvox 600mg/300ml D5w) 300 mls @ 300 mls/hr IVPB Q12 [facility] Last Admin: 08/31/16 21:23 Dose: 300 mls/hr Meropenem 500 mg/ Sodium (Chloride) 100 mls @ 100 mls/hr IVPB DAILY [facility] Last Admin: 08/31/16 10:55 Dose: 100 mls/hr Dobutamine HCl/Dextrose (Dobutamine/Dextrose 5% 500mg/250ml) 250 mls @ 16.67 mls/hr IV .Q15H [facility] PRN Reason: 5 MCG/KG/MIN Last Admin: 08/31/16 23:32 Dose: 16.67 mls/hr Sodium Chloride (Sodium Chloride 0.9%) 250 mls @ 999 mls/hr IV .Q16M [facility] Last Admin: 08/30/16 05:36 Dose: 999 mls/hr Amikacin Sulfate 250 mg/ (Sodium Chloride) 251 mls @ 250 mls/hr IVPB MWF [facility] Insulin Detemir (Levemir) 40 units SC HS [facility] Last Admin: 08/31/16 21:25 Dose: 40 units Insulin Detemir (Levemir) 30 units SC DAILY [facility] Insulin Human Lispro (Humalog) 26 units SC AC [facility] Last Admin: 09/01/16 06:32 Dose: 26 u Lidocaine (Lidoderm) 1 ea TD DAILY [facility] Last Admin: 08/31/16 09:18 Dose: 1 ea Ondansetron HCl (Zofran Inj) 4 mg IVP Q6 PRN PRN Reason: Nausea/Vomiting Last Admin: 09/01/16 06:15 Dose: 4 mg Pantoprazole Sodium (Protonix Inj) 40 mg IVP DAILY [facility] Last Admin: 08/31/16 11:03 Dose: 40 mg Senna/Docusate Sodium (Senokot S 50 Mg-8.6 Mg) 3 tab PO HS PRN PRN Reason: Constipation Sennosides (Senokot Tab) 17.2 mg PO HS [facility] Last Admin: 08/31/16 21:25 Dose: 17.2 mg Sevelamer HCl (Renagel) 1,600 mg PO TID [facility] Last Admin: 08/31/16 17:47 Dose: 1,600 mg Topiramate (Topamax) 50 mg PO BID [facility] Last Admin: 08/31/16 17:47 Dose: 50 mg Vitamin B Complex/Vit C/Folic Acid (Nephro-Ajay) 1 tab PO DAILY [facility] Last Admin: 08/31/16 09:19 Dose: 1 tab - Labs Labs: 09/01/16 07:09 09/01/16 07:09 PT 16.5 SECONDS (9.6-11.2) H 08/28/16 16:11 INR 1.59 (0.92-1.08) H 08/28/16 16:11 APTT 38.7 SECONDS (23.3-32.5) H 08/28/16 16:11 - Constitutional Appears: Non-toxic, No Acute Distress - Extremities Exam Additional comments: RLE exam: VASC- DP/PT pulses non-palpable, however w/ bedside doppler: dorsalis pedis and deep plantar artery of 1st interspace heard (biphasic), posterior tibial pulse also appreciated (biphasic), capillary refill < 5 sec to digits x 5, moderate 2 + pitting edema noted to anterior aspect of leg and dorsum of foot NEURO-gross pedal sensation is diminished DERM- superficial eschar noted to plantar aspect of heel, appears dry w/ no drainage noted on compression, no purulent drainage, no increased warmth, no local or ascending erythema. ORTHO- slight tenderness noted to deep palpation of calf/posterior leg, patient able to flex and extend all digits, severe varus deformity of ankle noted - Neurological Exam Neurological Exam: Alert, Awake, Oriented x3 - Psychiatric Exam Psychiatric exam: Normal Affect, Normal Mood Assessment and Plan - Assessment and Plan (Free Text) Assessment: 46 yo female patient w/ pmhx of HTN, ESRD (on dialysis), coagulopathy, DM, charcot right foot PVD admitted for sepsis, right heel ulceration, painful right posterior leg Plan: --Pt seen and evaluated in ICU --Plan discussed in detail w/ Dr. Pruett --Chart,vitals reviewed: afebrile, wbc increased to 16.1 (up from 14.1) --ESR >120 --Venous duplex US (RLE): negative for DVT --Right foot x-ray: diffuse soft tissue swelling, severe neuropathic tiffanie changes. No evidence acute articular or osseous abnormality. --Blood cx: E. coli --Central line cath: E. coli --Right wound cx: E. coli --f/u arterial duplex --IV abx per ID Dr. Greenberg: meropenem 500 mg qd, zosyn 2.25 gq12, linezolid 600 mg q12. --Pain meds per primary (dilaudid) --On eliquis 5 mg po bid --Tylenol for fever --Right foot dressing changed, santyl held again today, DSD only. Offloading prevalon boot to be applied to right heel at all times in bed. --For MRI of R foot tomorrow. --Will continue to follow
[2016-09-01] MEDS: Meropenem 500 MG in Sodium Chloride 0.9% 100 ML IVPB SCH (08:35)
[2016-09-01] MEDS: Multivitamin Vitamin B Complex (Nephro-Vite) Tab PO SCH (08:45)
[2016-09-01] MEDS: Santyl Collagenase OINTMENT TOP SCH (08:45)
[2016-09-01] MEDS: Insulin Detemir 100 Units/ml Inj SC SCH (09:46)
[2016-09-01] MEDS: Lidocaine 5% Patch TD SCH (10:00)
[2016-09-01] MEDS: Albuterol-Ipratrop 3 mg / 0.5 (3 ml) UD INH PRN ×2 (10:30→15:18)
--- NOTE | 2016-09-01 10:52 | CP.PCM.PN ---
Subjective - Date & Time of Evaluation Date of Evaluation: 09/01/16 Time of Evaluation: 10:39 - Subjective Subjective: Patient evaluated and discussed with Dr. Griffiths, pediatric physician assistant. Patient continues with dyspepsia (flatulence. despite several large bowel movements over the past few days and anorexia). No nausea or vomiting. She continues on IV Zvyox, Zosyn, Meropenem, Amikacin for infection of right heel with cellulits right lower leg. We are awaiting MRI of the foot (to be done tomorrow morning) to help make a decision regarding appropriate treatment for the infection that caused bacteremia and overwhelming sepsis. While most of the treating team of physicians believe there is osteomyelitis and the best plan involves amputation, we will request a further surgical consultation tomorrow. Dr. Lemon is managing antibiotics. Dr. Gordon has been managing local foot care for boggy right heel ulcer in setting of terrible Charcot joint. Cardiac output is being maintained on volume support and iv dobutamine - management by Dr. Gallito Shepard. Diabetes is being managed by Dr. Ambrose. Hemodialysis is being managed by Dr. Alta Guadarrama. Reduction Plant Supervisor, Dr. Evita Shepard, will advise on stopping Eliquis (but probably continuing aspirin) perhaps 48 hours before any surgery. Since patient cannot be given heparin in any form, this will require close attention to prevent bleed on the one hand and clotting on the other. Seizure activity (probably sepsis induced) appears to be controlled on Topamax - neurologist is Dr. Keller. [Consideration of difficulty managing Keppra for person on hemodialysis versus possible metabolic problems with Topamax - and can that be a problem where no urine is being produced?] Coagulopathy (thrombophilia) and arterial occlusive disease have combined to make vascular access formidable. Our best course may be to leave Permacath and PICC lines in place and eliminate the source of infection first - especially since the follow up blood cultures are now negative for bacteria. Pt complains of some cough that interferes with sleep (will order Robitussin-DM ) and anal irritation (HTC 2.5% cream ordered). Anemia (multifactorial) with Hgb now 8.5 Will repeat CBC, CMP, Fe/TIBC and ferritin in the am. She will probably require rbc's prior to any surgery. Back pain is improved. CT of Lumbar spine showed L5-S1 spondylosis, otherwise spine looked OK. There are 3 foci of low attenuation in area of right kidney, the largest about 3 cm in diamater. ? Possible cysts? Will discuss with Dr. Guadarrama. Objective - Vital Signs/Intake and Output Vital Signs (last 24 hours): Temp Pulse Resp BP Pulse Ox 98.6 F 120 H 22 137/53 L 100 09/01/16 08:00 09/01/16 09:00 09/01/16 09:00 09/01/16 08:00 09/01/16 08:00 Intake and Output: 09/01/16 09/01/16 06:59 18:59 Intake Total 400 36 Balance 400 36 - Medications Medications: Current Medications Acetaminophen (Tylenol 325mg Tab) 650 mg PO Q4 PRN PRN Reason: Fever >100.4 F Last Admin: 08/28/16 15:23 Dose: 650 mg Acetaminophen (Tylenol 325mg Tab) 650 mg PO Q4 PRN PRN Reason: Pain, moderate (4-7) Last Admin: 08/30/16 23:11 Dose: 650 mg Albuterol/Ipratropium (Duoneb 3 Mg/0.5 Mg (3 Ml) Ud) 3 ml INH RQ4 PRN PRN Reason: Shortness of Breath Last Admin: 09/01/16 10:30 Dose: 3 ml Apixaban (Eliquis) 5 mg PO BID [facility] PRN Reason: Protocol Last Admin: 09/01/16 08:41 Dose: 5 mg Aspirin (Ecotrin) 81 mg PO DAILY [facility] [place] Last Admin: 09/01/16 08:39 Dose: 81 mg Atorvastatin Calcium (Lipitor) 40 mg PO DAILY [facility] [place] Last Admin: 09/01/16 08:38 Dose: 40 mg Cinacalcet (Sensipar) 30 mg PO DAILY [facility] [place] Last Admin: 09/01/16 08:42 Dose: 30 mg Collagenase (Santyl) 1 applic TOP DAILY [facility] [place] Last Admin: 09/01/16 08:45 Dose: Not Given Docusate Sodium (Colace) 200 mg PO BID [facility] [place] Last Admin: 09/01/16 08:38 Dose: 200 mg Guaifenesin/Dextromethorphan (Robitussin Dm) 10 ml PO Q4 PRN PRN Reason: Cough Hydrocortisone (Anusol-Hc) 1 applic [place] BID [facility] Piperacillin Sod/Tazobactam (Sod 2.25 gm/ Sodium Chloride) 100 mls @ 100 mls/ hr IVPB Q12 [facility] [place] Last Admin: 09/01/16 09:01 Dose: 100 mls/hr Linezolid (Zyvox 600mg/300ml D5w) 300 mls @ 300 mls/hr IVPB Q12 [facility] [place] Last Admin: 08/31/16 21:23 Dose: 300 mls/hr Meropenem 500 mg/ Sodium (Chloride) 100 mls @ 100 mls/hr IVPB DAILY [facility] [place] Last Admin: 09/01/16 08:35 Dose: 100 mls/hr Dobutamine HCl/Dextrose (Dobutamine/Dextrose 5% 500mg/250ml) 250 mls @ 16.67 mls/hr IV .Q15H [facility] [place] PRN Reason: 5 MCG/KG/MIN Last Admin: 08/31/16 23:32 Dose: 16.67 mls/hr Amikacin Sulfate 250 mg/ (Sodium Chloride) 251 mls @ 250 mls/hr IVPB [facility] [place] Insulin Detemir (Levemir) 40 units SC [facility] Last Admin: 08/31/16 21:25 Dose: 40 units Insulin Detemir (Levemir) 30 units SC DAILY [facility] [place] Last Admin: 09/01/16 09:46 Dose: 30 units Insulin Human Lispro (Humalog) 26 units SC AC [facility] [place] Last Admin: 09/01/16 06:32 Dose: 26 u Lidocaine (Lidoderm) 1 ea TD DAILY [facility] [place] Last Admin: 08/31/16 09:18 Dose: 1 ea Ondansetron HCl (Zofran Inj) 4 mg IVP Q6 PRN PRN Reason: Nausea/Vomiting Last Admin: 09/01/16 06:15 Dose: 4 mg Pantoprazole Sodium (Protonix Inj) 40 mg IVP DAILY [facility] [place] Last Admin: 09/01/16 08:44 Dose: 40 mg Senna/Docusate Sodium (Senokot S 50 Mg-8.6 Mg) 3 tab PO HS PRN PRN Reason: Constipation Sennosides (Senokot Tab) 17.2 mg PO HS [facility] [place] Last Admin: 08/31/16 21:25 Dose: 17.2 mg Sevelamer HCl (Renagel) 1,600 mg PO TID [facility] [place] Last Admin: 09/01/16 08:39 Dose: 1,600 mg Topiramate (Topamax) 50 mg PO BID [facility] [place] Last Admin: 09/01/16 08:39 Dose: 50 mg Vitamin B Complex/Vit C/Folic Acid (Nephro-Ajay) 1 tab PO DAILY [facility] [place] Last Admin: 09/01/16 08:45 Dose: 1 tab - Labs Labs: 09/01/16 07:09 09/01/16 07:09 PT 16.5 SECONDS (9.6-11.2) H 08/28/16 16:11 INR 1.59 (0.92-1.08) H 08/28/16 16:11 APTT 38.7 SECONDS (23.3-32.5) H 08/28/16 16:11 Microbiology 08/29/16 10:51 Blood Blood Culture - Preliminary NO GROWTH AFTER 3 DAYS 08/28/16 16:11 Blood-Thru Central Line Blood Culture - Preliminary NO GROWTH AFTER 3 DAYS 08/29/16 18:32 Throat Group A Strep Throat Culture - Final NO BETA STREP GROUP A ISOLATED. 08/28/16 18:17 Naris MRSA Culture (Admit) - Final MRSA NOT DETECTED 08/28/16 16:11 Blood-Thru Central Line Blood Culture - Final Escherichia Coli 08/28/16 16:11 Blood-Thru Central Line Gram Stain - Final 08/27/16 20:09 Foot - Right Gram Stain - Final 08/27/16 20:09 Foot - Right Wound Culture - Preliminary Escherichia Coli 08/27/16 17:45 Blood-Venous Blood Culture - Final Escherichia Coli 08/27/16 17:45 Blood-Venous Gram Stain - Final - Constitutional Appears: Other (Uncomfortable, but no specific source of distress) - Head Exam Head Exam: NORMAL INSPECTION - Eye Exam Eye Exam: Normal appearance - ENT Exam ENT Exam: Mucous Membranes Moist - Neck Exam Neck Exam: Normal Inspection Additional comments: R subclavian Permacath intact. - Respiratory Exam Respiratory Exam: Clear to Ausculation Bilateral - Cardiovascular Exam Cardiovascular Exam: REGULAR RHYTHM - GI/Abdominal Exam GI & Abdominal Exam: Soft, Normal Bowel Sounds - Extremities Exam Additional comments: As before with specific attention to: Mild-moderate edema left hand which is cool! Still right calf tenderness but less than before. R foot dressing in place. L BK amputation site clear. R upper arm PICC line intact. - Back Exam Back Exam: NORMAL INSPECTION, paraspinal tenderness - Neurological Exam Neurological Exam: Alert, Awake, CN II-XII Intact, Oriented x3 Additional comments: No altered consciousness or mentation. - Psychiatric Exam Psychiatric exam: Normal Affect - Skin Skin Exam: Warm Assessment and Plan (1) SIRS (systemic inflammatory response syndrome) Assessment & Plan: SEE SUBJECTIVE Status: Acute (2) Cellulitis of leg Assessment & Plan: SEE SUBJECTIVE Status: Acute (3) Ulcer of right heel Assessment & Plan: SEE SUBJECTIVE Status: Acute (4) DM type 2 (diabetes mellitus, type 2) Assessment & Plan: SEE SUBJECTIVE Status: Chronic (5) Coagulopathy Assessment & Plan: SEE SUBJECTIVE Status: Chronic (6) ESRD (end stage renal disease) on dialysis Assessment & Plan: SEE SUBJECTIVE Status: Chronic (7) Hyperlipidemia Assessment & Plan: SEE SUBJECTIVE Status: Acute (8) Peripheral arterial occlusive disease Assessment & Plan: SEE SUBJECTIVE Status: Acute - Assessment and Plan (Free Text) Assessment: OVERALL CONDITION IS GUARDED but not without hope: WILL CHECK blood work in am: CBC, CMP, Fe/TIBC, ferritin.
[2016-09-01] MEDS: Linezolid 600 mg in D5W 300 ml 300 ML IVPB SCH ×2 (11:32→20:53)
[2016-09-01] MEDS: guaiFENesin DM 200 mg-20 mg/10 ml UD PO PRN (12:04)
--- NOTE | 2016-09-01 12:11 | PN ---
DATE: 09/01/2016 ENDO FOLLOWUP NOTE ROOM: 433 ICU. SUBJECTIVE: This is a 46-year-old female with recent uncontrolled type 2 insulin-requiring diabetes, now being followed closely for metabolic management. She is receiving multiple IV antibiotics for g domonique-negative bacteremia with underlying right leg cellulitis with a nonhealing right heel neuropathic ulceration, and is also being followed closely for metabolic management with recent hyperglycemic ac celerations as noted thereof. Her latest chemistry showed a BUN of 34, sodium 137, potassium 4.2, chloride 95, CO2 of 26, glucose 2 02m and creatinine 7.1. Her glucose values today have ranged from 231-409, and 449 mg/dL. So at this time, we will modify her basal and bolus insulin regimen to optimize metabolic control, an d we will increase the Levemir at bedtime to 50 units subQ at bedtime daily as ordered to start tonig ht. We will continue the morning at 10:00 a.m. basal insulin given as Levemir at 30 units subQ at 10 :00 a.m. daily as ordered. We will obtain serial chemistries and supplement accordingly as needed. We will follow and advise accordingly. Irene Ambrose MD cc: [id number] TT: 09/01/2016 12:10:53 Confirmation # [id number] Dictation # [id number]
[2016-09-01] MEDS: Hydrocortisone 2.5% (Rectal) CREAM PR SCH ×2 (12:25→18:05)
--- NOTE | 2016-09-01 13:34 | CP.PCM.PN ---
Subjective - Date & Time of Evaluation Date of Evaluation: 09/01/16 Time of Evaluation: 01:30 - Subjective Subjective: Alert & communicative No respiratory distress Objective - Vital Signs/Intake and Output Vital Signs (last 24 hours): Temp Pulse Resp BP Pulse Ox 98.6 F 116 H 18 153/72 H 100 09/01/16 08:00 09/01/16 10:00 09/01/16 10:00 09/01/16 10:00 09/01/16 10:00 Intake and Output: 09/01/16 09/01/16 06:59 18:59 Intake Total 400 728 Balance 400 728 - Medications Medications: Current Medications Acetaminophen (Tylenol 325mg Tab) 650 mg PO Q4 PRN PRN Reason: Fever >100.4 F Last Admin: 08/28/16 15:23 Dose: 650 mg Acetaminophen (Tylenol 325mg Tab) 650 mg PO Q4 PRN PRN Reason: Pain, moderate (4-7) Last Admin: 08/30/16 23:11 Dose: 650 mg Albuterol/Ipratropium (Duoneb 3 Mg/0.5 Mg (3 Ml) Ud) 3 ml INH RQ4 PRN PRN Reason: Shortness of Breath Last Admin: 09/01/16 10:30 Dose: 3 ml Apixaban (Eliquis) 5 mg PO BID [facility] PRN Reason: Protocol Last Admin: 09/01/16 08:41 Dose: 5 mg Aspirin (Ecotrin) 81 mg PO DAILY [facility] Last Admin: 09/01/16 08:39 Dose: 81 mg Atorvastatin Calcium (Lipitor) 40 mg PO DAILY [facility] Last Admin: 09/01/16 08:38 Dose: 40 mg Cinacalcet (Sensipar) 30 mg PO DAILY [facility] Last Admin: 09/01/16 08:42 Dose: 30 mg Collagenase (Santyl) 1 applic TOP DAILY [facility] Last Admin: 09/01/16 08:45 Dose: Not Given Docusate Sodium (Colace) 200 mg PO BID [facility] Last Admin: 09/01/16 08:38 Dose: 200 mg Guaifenesin/Dextromethorphan (Robitussin Dm) 10 ml PO Q4 PRN PRN Reason: Cough Last Admin: 09/01/16 12:04 Dose: 10 ml Hydrocortisone (Anusol-Hc) 1 applic [place] BID [facility] Last Admin: 09/01/16 12:25 Dose: Not Given Piperacillin Sod/Tazobactam (Sod 2.25 gm/ Sodium Chloride) 100 mls @ 100 mls/ hr IVPB Q12 [facility] Last Admin: 09/01/16 09:01 Dose: 100 mls/hr Linezolid (Zyvox 600mg/300ml D5w) 300 mls @ 300 mls/hr IVPB Q12 [facility] Last Admin: 09/01/16 11:32 Dose: 300 mls/hr Meropenem 500 mg/ Sodium (Chloride) 100 mls @ 100 mls/hr IVPB DAILY [facility] Last Admin: 09/01/16 08:35 Dose: 100 mls/hr Dobutamine HCl/Dextrose (Dobutamine/Dextrose 5% 500mg/250ml) 250 mls @ 16.67 mls/hr IV .Q15H [facility] PRN Reason: 5 MCG/KG/MIN Last Admin: 08/31/16 23:32 Dose: 16.67 mls/hr Sodium Chloride (Sodium Chloride 0.9%) 250 mls @ 999 mls/hr IV .Q16M [facility]PL[facility] Last Admin: 08/30/16 05:36 Dose: 999 mls/hr Amikacin Sulfate 250 mg/ (Sodium Chloride) 251 mls @ 250 mls/hr IVPB MWF [facility]PL[facility] Insulin Detemir (Levemir) 30 units SC DAILY [facility] Last Admin: 09/01/16 09:46 Dose: 30 units Insulin Detemir (Levemir) 50 units SC [facility] Insulin Human Lispro (Humalog) 26 units SC AC [facility] Last Admin: 09/01/16 12:00 Dose: 26 u Lidocaine (Lidoderm) 1 ea TD DAILY [facility] Last Admin: 09/01/16 10:00 Dose: Not Given Ondansetron HCl (Zofran Inj) 4 mg IVP Q6 PRN PRN Reason: Nausea/Vomiting Last Admin: 09/01/16 06:15 Dose: 4 mg Pantoprazole Sodium (Protonix Inj) 40 mg IVP DAILY [facility] Last Admin: 09/01/16 08:44 Dose: 40 mg Senna/Docusate Sodium (Senokot S 50 Mg-8.6 Mg) 3 tab PO HS PRN PRN Reason: Constipation Sennosides (Senokot Tab) 17.2 mg PO [facility] Last Admin: 08/31/16 21:25 Dose: 17.2 mg Sevelamer HCl (Renagel) 1,600 mg PO TID [facility] Last Admin: 09/01/16 08:39 Dose: 1,600 mg Topiramate (Topamax) 50 mg PO BID [facility] Last Admin: 09/01/16 08:39 Dose: 50 mg Vitamin B Complex/Vit C/Folic Acid (Nephro-Ajay) 1 tab PO DAILY [facility] Last Admin: 09/01/16 08:45 Dose: 1 tab - Labs Labs: 09/01/16 07:09 09/01/16 07:09 PT 16.5 SECONDS (9.6-11.2) H 08/28/16 16:11 INR 1.59 (0.92-1.08) H 08/28/16 16:11 APTT 38.7 SECONDS (23.3-32.5) H 08/28/16 16:11 - Respiratory Exam Additional comments: Lungs clear - Cardiovascular Exam Cardiovascular Exam: Tachycardia, REGULAR RHYTHM Additional comments: sinus tach 115/min - Extremities Exam Additional comments: Rt foot dressed Lt BKA Assessment and Plan - Assessment and Plan (Free Text) Assessment: ESRD on HD Sepsis Hypotesion On Dobutamine drip Rt leg wounds IDDM with complications Plan: For dialysis tomorrow Abx per ID
[2016-09-01] MEDS: DOBUTamine 500mg/250ml D5W 250 ML IV SCH (14:51)
--- NOTE | 2016-09-01 17:05 | CP.PCM.PN ---
Subjective - Date & Time of Evaluation Date of Evaluation: 09/01/16 Time of Evaluation: 17:00 - Subjective Subjective: ID NOTE PATIENT IS ALERT TODAY ,COMPLAINING OF ABDOMINAL PAIN WBC:16.1,WBC REMAINS HIGH LIKELY CONSISTENT C LOWER EXTREMITY INFECTION DESPITE STRONG ANTIBIOTIC COVERAGE. F/U BLOOD CULTURES SO FAR ARE NEGATIVE AWAITING MRI OF FOOT Objective - Vital Signs/Intake and Output Vital Signs (last 24 hours): Temp Pulse Resp BP Pulse Ox 98.8 F 111 H 25 H 109/59 L 100 09/01/16 16:00 09/01/16 16:00 09/01/16 16:00 09/01/16 16:00 09/01/16 16:00 Intake and Output: 09/01/16 09/01/16 06:59 18:59 Intake Total 400 998 Balance 400 998 - Medications Medications: Current Medications Acetaminophen (Tylenol 325mg Tab) 650 mg PO Q4 PRN PRN Reason: Fever >100.4 F Last Admin: 08/28/16 15:23 Dose: 650 mg Acetaminophen (Tylenol 325mg Tab) 650 mg PO Q4 PRN PRN Reason: Pain, moderate (4-7) Last Admin: 08/30/16 23:11 Dose: 650 mg Albuterol/Ipratropium (Duoneb 3 Mg/0.5 Mg (3 Ml) Ud) 3 ml INH RQ4 PRN PRN Reason: Shortness of Breath Last Admin: 09/01/16 15:18 Dose: 3 ml Apixaban (Eliquis) 5 mg PO BID [facility] PRN Reason: Protocol Last Admin: 09/01/16 16:50 Dose: 5 mg Aspirin (Ecotrin) 81 mg PO DAILY [facility] Last Admin: 09/01/16 08:39 Dose: 81 mg Atorvastatin Calcium (Lipitor) 40 mg PO DAILY [facility] Last Admin: 09/01/16 08:38 Dose: 40 mg Cinacalcet (Sensipar) 30 mg PO DAILY [facility] Last Admin: 09/01/16 08:42 Dose: 30 mg Collagenase (Santyl) 1 applic TOP DAILY [facility] Last Admin: 09/01/16 08:45 Dose: Not Given Docusate Sodium (Colace) 200 mg PO BID [facility] Last Admin: 09/01/16 16:54 Dose: Not Given Guaifenesin/Dextromethorphan (Robitussin Dm) 10 ml PO Q4 PRN PRN Reason: Cough Last Admin: 09/01/16 12:04 Dose: 10 ml Hydrocortisone (Anusol-Hc) 1 applic [place] BID [facility] Last Admin: 09/01/16 12:25 Dose: Not Given Piperacillin Sod/Tazobactam (Sod 2.25 gm/ Sodium Chloride) 100 mls @ 100 mls/ hr IVPB Q12 [facility] Last Admin: 09/01/16 09:01 Dose: 100 mls/hr Linezolid (Zyvox 600mg/300ml D5w) 300 mls @ 300 mls/hr IVPB Q12 [facility] Last Admin: 09/01/16 11:32 Dose: 300 mls/hr Meropenem 500 mg/ Sodium (Chloride) 100 mls @ 100 mls/hr IVPB DAILY [facility] Last Admin: 09/01/16 08:35 Dose: 100 mls/hr Dobutamine HCl/Dextrose (Dobutamine/Dextrose 5% 500mg/250ml) 250 mls @ 16.67 mls/hr IV .Q15H [facility] PRN Reason: 5 MCG/KG/MIN Last Admin: 09/01/16 14:51 Dose: 16.67 mls/hr Sodium Chloride (Sodium Chloride 0.9%) 250 mls @ 999 mls/hr IV .Q16M [facility] Last Admin: 08/30/16 05:36 Dose: 999 mls/hr Amikacin Sulfate 250 mg/ (Sodium Chloride) 251 mls @ 250 mls/hr IVPB [facility] [place]ulin Detemir (Levemir) 30 units SC DAILY [facility] Last Admin: 09/01/16 09:46 Dose: 30 units Insulin Detemir (Levemir) 50 units SC [facility] Insulin Human Lispro (Humalog) 26 units SC AC [facility] Last Admin: 09/01/16 16:51 Dose: 26 u Lidocaine (Lidoderm) 1 ea TD DAILY [facility] Last Admin: 09/01/16 10:00 Dose: Not Given Ondansetron HCl (Zofran Inj) 4 mg IVP Q6 PRN PRN Reason: Nausea/Vomiting Last Admin: 09/01/16 06:15 Dose: 4 mg Pantoprazole Sodium (Protonix Inj) 40 mg IVP DAILY [facility] Last Admin: 09/01/16 08:44 Dose: 40 mg Senna/Docusate Sodium (Senokot S 50 Mg-8.6 Mg) 3 tab PO HS PRN PRN Reason: Constipation Sennosides (Senokot Tab) 17.2 mg PO HS [facility] Last Admin: 08/31/16 21:25 Dose: 17.2 mg Sevelamer HCl (Renagel) 1,600 mg PO TID [facility] Last Admin: 09/01/16 16:51 Dose: 1,600 mg Topiramate (Topamax) 50 mg PO BID [facility] Last Admin: 09/01/16 16:53 Dose: 50 mg Vitamin B Complex/Vit C/Folic Acid (Nephro-Ajay) 1 tab PO DAILY [facility] Last Admin: 09/01/16 08:45 Dose: 1 tab - Labs Labs: 09/01/16 07:09 09/01/16 07:09 PT 16.5 SECONDS (9.6-11.2) H 08/28/16 16:11 INR 1.59 (0.92-1.08) H 08/28/16 16:11 APTT 38.7 SECONDS (23.3-32.5) H 08/28/16 16:11
--- NOTE | 2016-09-01 19:55 | CP.PCM.PN ---
Subjective - Date & Time of Evaluation Date of Evaluation: 09/01/16 Time of Evaluation: 19:55 - Subjective Subjective: Called by nurse to evaluate this patient with Altered Mental Status, cold skin. The patient is awake , lethargic, confused, with inappropriate answers to some questions, and not answering others. Bp 97/43mmHg; HR 108/min; SpO2 100% on 4L; RR 28/min Resp: Inspiratory rales at both lung ewing CVS: S1 S2 regular and tachycardic. no Murmurs Abd: Obese, Soft apparently non tender on palpation, No viceromegaleas Ext: Right foot , ankle charcot joint in dressing in Boot Neuro: Lethargic, confused, moving both upper extremities, no facial droop, Mild tremor seen at the right uper extremity Skin: Cold to touch Labs: Accucheck Blood Glucose < 20mg/dl VBG: Ph 7.34/ 46/ HCO3 23 Blood Glucose 12mg/dl BMP: Na+ 140; K+ 3.7; Creatinine 7.8; BUN 38 CXR: CT Head cancelled A&P #. Metabolic Encephalopathy secondary to Hypoglycemia -Patient given 100mls of 50%dextrose IV. Mentation and lethargy improved - CT of head cancelled - Hold Tonight's 50units Levemir Sub Q - Re evaluate AC lispro if Pte is not eating #. Seizure with muscular jerking movement at both upper extremities with mumbling on incomprehensible sounds, witnessed by nurse. 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 #. Cellulitis of the right foot - Continue present antibiotics, Zosyn, Linezolid, Meropenem, Amikasin #. ESRD on Hemodialysis - for Dialysis in AM Critical care [id number]. Objective - Vital Signs/Intake and Output Vital Signs (last 24 hours): Temp Pulse Resp BP Pulse Ox 98.8 F 113 H 22 112/56 L 100 09/01/16 16:00 09/01/16 18:00 09/01/16 18:00 09/01/16 18:00 09/01/16 16:00 Intake and Output: 04/23/17 04/24/17 18:59 06:59 Intake Total 1394 Balance 1394 - Medications Medications: Current Medications Acetaminophen (Tylenol 325mg Tab) 650 mg PO Q4 PRN PRN Reason: Fever >100.4 F Last Admin: 08/28/16 15:23 Dose: 650 mg Acetaminophen (Tylenol 325mg Tab) 650 mg PO Q4 PRN PRN Reason: Pain, moderate (4-7) Last Admin: 08/30/16 23:11 Dose: 650 mg Albuterol/Ipratropium (Duoneb 3 Mg/0.5 Mg (3 Ml) Ud) 3 ml INH RQ4 PRN PRN Reason: Shortness of Breath Last Admin: 09/01/16 15:18 Dose: 3 ml Apixaban (Eliquis) 5 mg PO BID [facility] PRN Reason: Protocol Last Admin: 09/01/16 16:50 Dose: 5 mg Aspirin (Ecotrin) 81 mg PO DAILY [facility] Last Admin: 09/01/16 08:39 Dose: 81 mg Atorvastatin Calcium (Lipitor) 40 mg PO DAILY [facility] Last Admin: 09/01/16 08:38 Dose: 40 mg Cinacalcet (Sensipar) 30 mg PO DAILY [facility] Last Admin: 09/01/16 08:42 Dose: 30 mg Collagenase (Santyl) 1 applic TOP DAILY [facility] Last Admin: 09/01/16 08:45 Dose: Not Given Docusate Sodium (Colace) 200 mg PO BID [facility] Last Admin: 09/01/16 16:54 Dose: Not Given Guaifenesin/Dextromethorphan (Robitussin Dm) 10 ml PO Q4 PRN PRN Reason: Cough Last Admin: 09/01/16 12:04 Dose: 10 ml Hydrocortisone (Anusol-Hc) 1 applic AL BID [facility] Last Admin: 09/01/16 18:05 Dose: Not Given Piperacillin Sod/Tazobactam (Sod 2.25 gm/ Sodium Chloride) 100 mls @ 100 mls/ hr IVPB Q12 [facility] Last Admin: 09/01/16 09:01 Dose: 100 mls/hr Linezolid (Zyvox 600mg/300ml D5w) 300 mls @ 300 mls/hr IVPB Q12 [facility] Last Admin: 09/01/16 11:32 Dose: 300 mls/hr Meropenem 500 mg/ Sodium (Chloride) 100 mls @ 100 mls/hr IVPB DAILY [facility] Last Admin: 09/01/16 08:35 Dose: 100 mls/hr Dobutamine HCl/Dextrose (Dobutamine/Dextrose 5% 500mg/250ml) 250 mls @ 16.67 mls/hr IV .Q15H [facility] PRN Reason: 5 MCG/KG/MIN Last Admin: 09/01/16 14:51 Dose: 16.67 mls/hr Sodium Chloride (Sodium Chloride 0.9%) 250 mls @ 999 mls/hr IV .Q16M [facility] Last Admin: 08/30/16 05:36 Dose: 999 mls/hr Amikacin Sulfate 250 mg/ (Sodium Chloride) 251 mls @ 250 mls/hr IVPB MWF [facility] Insulin Detemir (Levemir) 30 units SC DAILY [facility] Last Admin: 09/01/16 09:46 Dose: 30 units Insulin Detemir (Levemir) 50 units SC [facility] Insulin Human Lispro (Humalog) 26 units SC AC [facility] Last Admin: 09/01/16 16:51 Dose: 26 u Lidocaine (Lidoderm) 1 ea TD DAILY [facility] Last Admin: 09/01/16 10:00 Dose: Not Given Ondansetron HCl (Zofran Inj) 4 mg IVP Q6 PRN PRN Reason: Nausea/Vomiting Last Admin: 09/01/16 06:15 Dose: 4 mg Pantoprazole Sodium (Protonix Inj) 40 mg IVP DAILY [facility] Last Admin: 09/01/16 08:44 Dose: 40 mg Senna/Docusate Sodium (Senokot S 50 Mg-8.6 Mg) 3 tab PO HS PRN PRN Reason: Constipation Sennosides (Senokot Tab) 17.2 mg PO HS [facility] Last Admin: 08/31/16 21:25 Dose: 17.2 mg Sevelamer HCl (Renagel) 1,600 mg PO TID [facility] Last Admin: 09/01/16 16:51 Dose: 1,600 mg Topiramate (Topamax) 50 mg PO BID [facility] Last Admin: 09/01/16 16:53 Dose: 50 mg Vitamin B Complex/Vit C/Folic Acid (Nephro-Ajay) 1 tab PO DAILY [facility] Last Admin: 09/01/16 08:45 Dose: 1 tab - Labs Labs: 09/01/16 07:09 09/01/16 07:09 PT 16.5 SECONDS (9.6-11.2) H 08/28/16 16:11 INR 1.59 (0.92-1.08) H 08/28/16 16:11 APTT 38.7 SECONDS (23.3-32.5) H 08/28/16 16:11
[2016-09-01 20:13] LABS: BASO # 0.1 K/uL (0.0-0.2); BASO % 0.4 % (0.0-2.0); EOS # 0.1 K/uL (0.0-0.7); EOS % 0.5 % (0.0-4.0); HEMATOCRIT 29.5 % (34.0-47.0); LYMPH # 0.4 K/uL (1.0-4.3); LYMPH % 2.3 % (20.0-40.0); MEAN CELL VOLUME 93.4 fl (81.0-99.0); MEAN CORPUSCULAR HGB CONC 31.1 g/dL (33.0-37.0); MEAN PLATELET VOLUME 10.7 fl (7.2-11.7); MONO # 1.1 K/uL (0.0-0.8); MONO % 6.5 % (0.0-10.0); NEUT # 15.3 K/uL (1.8-7.0); NEUT % 90.3 % (50.0-75.0); PLATELET COUNT 164 K/uL (130-400); WHITE BLOOD COUNT 16.9 K/uL (4.8-10.8)
[2016-09-01] MEDS ORDERED: Dextrose 50% SYRINGE Inj (50 ml) IVP STA ×2 (20:20→22:03)
[2016-09-01 20:21] LABS: BLOOD UREA NITROGEN 38 mg/dl (7-17); CALCIUM 8.7 mg/dL (8.4-10.2); CARBON DIOXIDE 25 mmol/L (22-30); CHLORIDE 97 mmol/L (98-107); GFR AFRICAN-AMERICAN 7; POTASSIUM 3.7 MMOL/L (3.6-5.0); SODIUM 140 mmol/l (132-148)
[2016-09-01 20:22] LABS: VENOUS BLOOD GAS BASE EXCESS -1.3 mmol/L (0.0-2.0); VENOUS BLOOD GAS PCO2 46 mmHg (40-60); VENOUS BLOOD PH 7.34 (7.32-7.43)
[2016-09-01 20:30] LABS: GLUCOSE,RANDOM < 20 mg/dL (65-105)
[2016-09-01 20:59] LABS: NEUTROPHIL 89 % (42-75); TOTAL CELLS COUNTED 100
--- NOTE | 2016-09-01 21:31 | CP.PCM.PN ---
Subjective - Date & Time of Evaluation Date of Evaluation: 09/01/16 Time of Evaluation: 17:00 - Subjective Subjective: She had a spell of poor responsiveness and her ordered CT Brain was cancelled once her lab work showed a severe Hypoglycemia of 12. She was given DW50 and was back to Normal Negative Carotid Doppler Objective - Vital Signs/Intake and Output Vital Signs (last 24 hours): Temp Pulse Resp BP Pulse Ox 98.8 F 113 H 22 112/56 L 100 09/01/16 16:00 09/01/16 18:00 09/01/16 18:00 09/01/16 18:00 09/01/16 16:00 Intake and Output: 09/01/16 09/02/16 18:59 06:59 Intake Total 1394 Balance 1394 - Medications Medications: Current Medications Acetaminophen (Tylenol 325mg Tab) 650 mg PO Q4 PRN PRN Reason: Fever >100.4 F Last Admin: 08/28/16 15:23 Dose: 650 mg Acetaminophen (Tylenol 325mg Tab) 650 mg PO Q4 PRN PRN Reason: Pain, moderate (4-7) Last Admin: 08/30/16 23:11 Dose: 650 mg Albuterol/Ipratropium (Duoneb 3 Mg/0.5 Mg (3 Ml) Ud) 3 ml INH RQ4 PRN PRN Reason: Shortness of Breath Last Admin: 09/01/16 15:18 Dose: 3 ml Apixaban (Eliquis) 5 mg PO BID [facility] PRN Reason: Protocol Last Admin: 09/01/16 16:50 Dose: 5 mg Aspirin (Ecotrin) 81 mg PO DAILY [facility] Last Admin: 09/01/16 08:39 Dose: 81 mg Atorvastatin Calcium (Lipitor) 40 mg PO DAILY [facility] Last Admin: 09/01/16 08:38 Dose: 40 mg Cinacalcet (Sensipar) 30 mg PO DAILY [facility] Last Admin: 09/01/16 08:42 Dose: 30 mg Collagenase (Santyl) 1 applic TOP DAILY [facility] Last Admin: 09/01/16 08:45 Dose: Not Given Docusate Sodium (Colace) 200 mg PO BID [facility] Last Admin: 09/01/16 16:54 Dose: Not Given Guaifenesin/Dextromethorphan (Robitussin Dm) 10 ml PO Q4 PRN PRN Reason: Cough Last Admin: 09/01/16 12:04 Dose: 10 ml Hydrocortisone (Anusol-Hc) 1 applic [place] BID [facility] Last Admin: 09/01/16 18:05 Dose: Not Given Piperacillin Sod/Tazobactam (Sod 2.25 gm/ Sodium Chloride) 100 mls @ 100 mls/ hr IVPB Q12 [facility] Last Admin: 09/01/16 20:52 Dose: 100 mls/hr Linezolid (Zyvox 600mg/300ml D5w) 300 mls @ 300 mls/hr IVPB Q12 [facility] Last Admin: 09/01/16 20:53 Dose: 300 mls/hr Meropenem 500 mg/ Sodium (Chloride) 100 mls @ 100 mls/hr IVPB DAILY [facility] Last Admin: 09/01/16 08:35 Dose: 100 mls/hr Dobutamine HCl/Dextrose (Dobutamine/Dextrose 5% 500mg/250ml) 250 mls @ 16.67 mls/hr IV .Q15H [facility] PRN Reason: 5 MCG/KG/MIN Last Admin: 09/01/16 14:51 Dose: 16.67 mls/hr Sodium Chloride (Sodium Chloride 0.9%) 250 mls @ 999 mls/hr IV .Q16M [facility] Last Admin: 08/30/16 05:36 Dose: 999 mls/hr Amikacin Sulfate 250 mg/ (Sodium Chloride) 251 mls @ 250 mls/hr IVPB [facility] Insulin Detemir (Levemir) 30 units SC DAILY [facility] Last Admin: 09/01/16 09:46 Dose: 30 units Insulin Detemir (Levemir) 50 units SC [facility] Insulin Human Lispro (Humalog) 26 units SC AC [facility] Last Admin: 09/01/16 16:51 Dose: 26 u Lidocaine (Lidoderm) 1 ea TD DAILY [facility] Last Admin: 09/01/16 10:00 Dose: Not Given Ondansetron HCl (Zofran Inj) 4 mg IVP Q6 PRN PRN Reason: Nausea/Vomiting Last Admin: 09/01/16 06:15 Dose: 4 mg Pantoprazole Sodium (Protonix Inj) 40 mg IVP DAILY [facility] Last Admin: 09/01/16 08:44 Dose: 40 mg Senna/Docusate Sodium (Senokot S 50 Mg-8.6 Mg) 3 tab PO HS PRN PRN Reason: Constipation Sennosides (Senokot Tab) 17.2 mg PO HS [facility] Last Admin: 09/01/16 21:00 Dose: 17.2 mg Sevelamer HCl (Renagel) 1,600 mg PO TID [facility] Last Admin: 09/01/16 16:51 Dose: 1,600 mg Topiramate (Topamax) 50 mg PO BID [facility] Last Admin: 09/01/16 16:53 Dose: 50 mg Vitamin B Complex/Vit C/Folic Acid (Nephro-Ajay) 1 tab PO DAILY [facility] Last Admin: 09/01/16 08:45 Dose: 1 tab - Labs Labs: 09/01/16 20:05 09/01/16 20:05 PT 16.5 SECONDS (9.6-11.2) H 08/28/16 16:11 INR 1.59 (0.92-1.08) H 08/28/16 16:11 APTT 38.7 SECONDS (23.3-32.5) H 08/28/16 16:11
[2016-09-01] MEDS ORDERED: Insulin Detemir 100 Units/ml Inj SC SCH (22:00)
[2016-09-01] MEDS ORDERED: Glucagon Recombinant 1 mg Inj IM ONE (22:05)
[2016-09-01 23:25] LABS: IRON 97 ug/dL (37-170)
[2016-09-02 05:16] LABS: BASO # 0.1 K/uL (0.0-0.2); BASO % 0.3 % (0.0-2.0); EOS # 0.1 K/uL (0.0-0.7); EOS % 0.5 % (0.0-4.0); HEMATOCRIT 28.3 % (34.0-47.0); LYMPH # 0.6 K/uL (1.0-4.3); LYMPH % 3.3 % (20.0-40.0); MEAN CELL VOLUME 93.3 fl (81.0-99.0); MEAN CORPUSCULAR HEMOGLOBIN 29.1 pg (27.0-31.0); MEAN CORPUSCULAR HGB CONC 31.2 g/dL (33.0-37.0); MEAN PLATELET VOLUME 10.8 fl (7.2-11.7); MONO # 0.9 K/uL (0.0-0.8); MONO % 5.3 % (0.0-10.0); NEUT # 15.8 K/uL (1.8-7.0); NEUT % 90.6 % (50.0-75.0); PLATELET COUNT 171 K/uL (130-400); WHITE BLOOD COUNT 17.4 K/uL (4.8-10.8)
[2016-09-02 05:26] LABS: ALB/GLOB RATIO 0.7 (1.0-2.1); ALKALINE PHOSPHATASE 160 U/L (38-126); ALT/SGPT 56 U/L (9-52); AST/SGOT 54 U/L (14-36); BILIRUBIN,TOTAL 0.7 mg/dl (0.2-1.3); BLOOD UREA NITROGEN 40 mg/dl (7-17); CALCIUM 8.3 mg/dL (8.4-10.2); CARBON DIOXIDE 22 mmol/L (22-30); CHLORIDE 97 mmol/L (98-107); GFR AFRICAN-AMERICAN 6; GLUCOSE,RANDOM 151 mg/dL (65-105); POTASSIUM 4.1 MMOL/L (3.6-5.0); SODIUM 137 mmol/l (132-148)
--- NOTE | 2016-09-02 05:45 | PN ---
DATE: 08/30/2016 Excessive static, dictation unaudible ____ diabetes presenting here with right leg cellulitis and underlying nonhealing right heel ulcerati on ____ supervening ____ Irene Ambrose MD cc: [id number] TT: 08/30/2016 18:27:21 Confirmation # [id number] Dictation # [id number] 09/02/2016 04:44:21
[2016-09-02 07:08] LABS: NEUTROPHIL 92 % (42-75); TOTAL CELLS COUNTED 100
[2016-09-02 07:11] LABS: LARGE PLATELETS PRESENT
--- NOTE | 2016-09-02 07:28 | CP.PCM.PN ---
Subjective - Date & Time of Evaluation Date of Evaluation: 09/02/16 Time of Evaluation: 08:00 - Subjective Subjective: PODIATRY PROGRESS NOTE FOR DR. EDWARDS: 46 yo female patient S&E in ICU today. Pt seen resting comfortably n bed at time of visit. Per nurse, pt had hypoglycemic episode yesterday (down to 12) and replenished with D5W. Pt AAOx3 but lethargic today. Denies f/n/v/c/sob/cp, denies much of an appetite. Still complains of right leg pain today but pain meds helping. Denies any other problems at this time. Objective - Vital Signs/Intake and Output Vital Signs (last 24 hours): Temp Pulse Resp BP Pulse Ox 97.9 F 114 H 18 121/57 L 100 09/02/16 04:00 09/02/16 06:00 09/02/16 06:00 09/02/16 06:00 09/02/16 06:00 Intake and Output: 09/02/16 09/02/16 06:59 18:59 Intake Total 400 Balance 400 - Medications Medications: Current Medications Acetaminophen (Tylenol 325mg Tab) 650 mg PO Q4 PRN PRN Reason: Fever >100.4 F Last Admin: 08/28/16 15:23 Dose: 650 mg Acetaminophen (Tylenol 325mg Tab) 650 mg PO Q4 PRN PRN Reason: Pain, moderate (4-7) Last Admin: 09/02/16 06:01 Dose: 650 mg Albuterol/Ipratropium (Duoneb 3 Mg/0.5 Mg (3 Ml) Ud) 3 ml INH RQ4 PRN PRN Reason: Shortness of Breath Last Admin: 09/01/16 15:18 Dose: 3 ml Apixaban (Eliquis) 5 mg PO BID [facility] PRN Reason: Protocol Last Admin: 09/01/16 16:50 Dose: 5 mg Aspirin (Ecotrin) 81 mg PO DAILY [facility] Last Admin: 09/01/16 08:39 Dose: 81 mg Atorvastatin Calcium (Lipitor) 40 mg PO DAILY [facility] Last Admin: 09/01/16 08:38 Dose: 40 mg Cinacalcet (Sensipar) 30 mg PO DAILY [facility] Last Admin: 09/01/16 08:42 Dose: 30 mg Collagenase (Santyl) 1 applic TOP DAILY [facility] Last Admin: 09/01/16 08:45 Dose: Not Given Docusate Sodium (Colace) 200 mg PO BID [facility] Last Admin: 09/01/16 16:54 Dose: Not Given Guaifenesin/Dextromethorphan (Robitussin Dm) 10 ml PO Q4 PRN PRN Reason: Cough Last Admin: 09/01/16 12:04 Dose: 10 ml Hydrocortisone (Anusol-Hc) 1 applic [place] BID [facility] Last Admin: 09/01/16 18:05 Dose: Not Given Piperacillin Sod/Tazobactam (Sod 2.25 gm/ Sodium Chloride) 100 mls @ 100 mls/ hr IVPB Q12 [facility] Last Admin: 09/01/16 20:52 Dose: 100 mls/hr Linezolid (Zyvox 600mg/300ml D5w) 300 mls @ 300 mls/hr IVPB Q12 [facility] Last Admin: 09/01/16 20:53 Dose: 300 mls/hr Meropenem 500 mg/ Sodium (Chloride) 100 mls @ 100 mls/hr IVPB DAILY [facility] Last Admin: 09/01/16 08:35 Dose: 100 mls/hr Dobutamine HCl/Dextrose (Dobutamine/Dextrose 5% 500mg/250ml) 250 mls @ 16.67 mls/hr IV .Q15H [facility] PRN Reason: 5 MCG/KG/MIN Last Admin: 09/01/16 14:51 Dose: 16.67 mls/hr Sodium Chloride (Sodium Chloride 0.9%) 250 mls @ 999 mls/hr IV .Q16M [facility] Last Admin: 08/30/16 05:36 Dose: 999 mls/hr Amikacin Sulfate 250 mg/ (Sodium Chloride) 251 mls @ 250 mls/hr IVPB MWF [facility] Insulin Detemir (Levemir) 30 units SC DAILY [facility] Last Admin: 09/01/16 09:46 Dose: 30 units Insulin Detemir (Levemir) 50 units SC HS [facility] Insulin Human Lispro (Humalog) 26 units SC AC [facility] Last Admin: 09/01/16 16:51 Dose: 26 u Lidocaine (Lidoderm) 1 ea TD DAILY [facility] Last Admin: 09/01/16 10:00 Dose: Not Given Ondansetron HCl (Zofran Inj) 4 mg IVP Q6 PRN PRN Reason: Nausea/Vomiting Last Admin: 09/01/16 06:15 Dose: 4 mg Pantoprazole Sodium (Protonix Inj) 40 mg IVP DAILY [facility] Last Admin: 09/01/16 08:44 Dose: 40 mg Senna/Docusate Sodium (Senokot S 50 Mg-8.6 Mg) 3 tab PO HS PRN PRN Reason: Constipation Sennosides (Senokot Tab) 17.2 mg PO HS [facility] Last Admin: 09/01/16 21:00 Dose: 17.2 mg Sevelamer HCl (Renagel) 1,600 mg PO TID [facility] Last Admin: 09/01/16 16:51 Dose: 1,600 mg Topiramate (Topamax) 50 mg PO BID [facility] Last Admin: 09/01/16 16:53 Dose: 50 mg Vitamin B Complex/Vit C/Folic Acid (Nephro-Ajay) 1 tab PO DAILY [facility] Last Admin: 09/01/16 08:45 Dose: 1 tab - Labs Labs: 09/02/16 04:20 09/02/16 04:20 PT 16.5 SECONDS (9.6-11.2) H 08/28/16 16:11 INR 1.59 (0.92-1.08) H 08/28/16 16:11 APTT 38.7 SECONDS (23.3-32.5) H 08/28/16 16:11 - Constitutional Appears: Non-toxic, No Acute Distress - Extremities Exam Additional comments: RLE exam: VASC- DP/PT pulses non-palpable, however w/ bedside doppler: dorsalis pedis and deep plantar artery of 1st interspace heard (biphasic), posterior tibial pulse also appreciated (biphasic) on 09/01, capillary refill < 5 sec to digits x 5, moderate 2+ pitting edema noted to anterior aspect of leg and dorsum of foot NEURO-gross pedal sensation is diminished DERM- superficial eschar noted to plantar aspect of heel, appears dry w/ no drainage noted on compression, no purulent drainage, no increased warmth, no local or ascending erythema. ORTHO- slight tenderness noted to deep palpation of calf/posterior leg, patient able to flex and extend all digits, severe varus deformity of ankle noted - Neurological Exam Neurological Exam: Alert, Awake, Oriented x3 - Psychiatric Exam Psychiatric exam: Normal Affect, Normal Mood Assessment and Plan - Assessment and Plan (Free Text) Assessment: 46 yo female patient w/ pmhx of HTN, ESRD (on dialysis), coagulopathy, DM, charcot right foot PVD admitted for sepsis, right heel ulceration, painful right posterior leg Plan: --Pt seen and evaluated in ICU --Plan discussed in detail w/ Dr. Pruett --Chart,vitals reviewed: afebrile, wbc increased to 17 (up from 16) --ESR >120 --Venous duplex US (RLE): negative for DVT --Right foot x-ray: diffuse soft tissue swelling, severe neuropathic tiffanie changes. No evidence acute articular or osseous abnormality. --Blood cx: E. coli --Central line cath: E. coli --Right wound cx: E. coli --f/u arterial duplex --IV abx per ID Dr. Greenberg: meropenem 500 mg qd, zosyn 2.25 gq12, linezolid 600 mg q12. --Pain meds per primary (dilaudid) --On eliquis 5 mg po bid --Tylenol for fever --Right foot dressing changed, santyl held again today, DSD only. Offloading prevalon boot to be applied to right heel at all times in bed. --For MRI of R foot today --Will continue to follow
[2016-09-02] MEDS: Albuterol-Ipratrop 3 mg / 0.5 (3 ml) UD INH PRN ×3 (07:29→21:32)
--- NOTE | 2016-09-02 08:33 | US ---
PROCEDURE: Duplex ultrasound of the right lower extremity arteries. HISTORY: no palpable pulse COMPARISON: None available. TECHNIQUE: Grayscale and duplex Doppler evaluation of the bilateral common femoral, superficial femoral, popliteal, posterior tibial and dorsalis pedis arteries was performed.. 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 RIGHT COMMON FEMORAL ARTERY: Widely patent. Maximal flow velocity of 100.3 cm/s. RIGHT SUPERFICIAL FEMORAL ARTERY: Widely patent. Maximal flow velocity of 82 cm/s. RIGHT POPLITEAL ARTERY:Widely patent. Maximal flow velocity of 51 cm/s. RIGHT POSTERIOR TIBIAL ARTERY: Widely patent. Maximal flow velocity of 59 cm/s. Anterior tibial artery not visualize. RIGHT DORSALIS PEDIS ARTERY: Nondiagnostic assessment related to overlying bandages. OTHER FINDINGS: Solitary right inguinal lymph node 1.90.9. Morphologically, unremarkable lymph nodes. 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 Although there is atherosclerotic disease distally flow documented in the popliteal artery and posterior tibial artery. Nondiagnostic assessment right dorsalis pedis artery. Nonvisualization right anterior tibial artery.
[2016-09-02] MEDS: Insulin Detemir 100 Units/ml Inj SC SCH ×2 (08:45→21:59)
[2016-09-02] MEDS: Lidocaine 5% Patch TD SCH (08:47)
[2016-09-02] MEDS: Meropenem 500 MG in Sodium Chloride 0.9% 100 ML IVPB SCH (08:49)
[2016-09-02] MEDS: Multivitamin Vitamin B Complex (Nephro-Vite) Tab PO SCH (08:49)
[2016-09-02] MEDS: Santyl Collagenase OINTMENT TOP SCH (08:50)
[2016-09-02] MEDS: Linezolid 600 mg in D5W 300 ml 300 ML IVPB SCH ×2 (08:54→20:40)
--- NOTE | 2016-09-02 08:58 | RAD ---
HISTORY: Crackles in both lung ewing/SOB . Technique: Single view portable semi erect @ 21:30. COMPARISON: 08/30/2016. FINDINGS: LUNGS: Persistent consolidative changes right lower lobe. PLEURA: No significant pleural effusion identified, no pneumothorax apparent. CARDIOVASCULAR: No radiographic findings to suggest acute or significant cardiovascular disease. Venous access catheter in stable, satisfactory position. OSSEOUS STRUCTURES: No significant abnormalities. VISUALIZED UPPER ABDOMEN: Normal. OTHER FINDINGS: None. IMPRESSION: Stable infiltrates right lower lobe. No new/ acute findings. No new/acute findings apparent.
--- NOTE | 2016-09-02 09:07 | CP.PCM.PN ---
Subjective - Date & Time of Evaluation Date of Evaluation: 09/02/16 Time of Evaluation: 09:00 - Subjective Subjective: Has anorexia and semi formed stool No fever or chills Sinus rhythm at 110-115 BPM BP 116/70 mm Hg No signs of CHF C/O irritation under both breasts Scheduled for MRI of Rt heel (?? Osteo) Scheduled for HD today NYSTATIN powder ordered for rash under breasts Dobutamin D/Roebrt Objective - Vital Signs/Intake and Output Vital Signs (last 24 hours): Temp Pulse Resp BP Pulse Ox 97.7 F 117 H 25 H 126/66 100 09/02/16 07:22 09/02/16 07:22 09/02/16 07:22 09/02/16 07:22 09/02/16 07:22 Intake and Output: 09/02/16 09/02/16 06:59 18:59 Intake Total 400 750 Balance 400 750 - Medications Medications: Current Medications Acetaminophen (Tylenol 325mg Tab) 650 mg PO Q4 PRN PRN Reason: Fever >100.4 F Last Admin: 08/28/16 15:23 Dose: 650 mg Acetaminophen (Tylenol 325mg Tab) 650 mg PO Q4 PRN PRN Reason: Pain, moderate (4-7) Last Admin: 09/02/16 06:01 Dose: 650 mg Albuterol/Ipratropium (Duoneb 3 Mg/0.5 Mg (3 Ml) Ud) 3 ml INH RQ4 PRN PRN Reason: Shortness of Breath Last Admin: 09/02/16 07:29 Dose: 3 ml Apixaban (Eliquis) 5 mg PO BID [facility] PRN Reason: Protocol Last Admin: 09/02/16 08:45 Dose: 5 mg Aspirin (Ecotrin) 81 mg PO DAILY [facility] Last Admin: 09/02/16 08:44 Dose: 81 mg Atorvastatin Calcium (Lipitor) 40 mg PO DAILY [facility] Last Admin: 09/02/16 08:48 Dose: 40 mg Cinacalcet (Sensipar) 30 mg PO DAILY [facility] Last Admin: 09/02/16 08:53 Dose: 30 mg Collagenase (Santyl) 1 applic TOP DAILY [facility] Last Admin: 09/02/16 08:50 Dose: 1 applic Docusate Sodium (Colace) 200 mg PO BID [facility] Last Admin: 09/02/16 08:43 Dose: Not Given Guaifenesin/Dextromethorphan (Robitussin Dm) 10 ml PO Q4 PRN PRN Reason: Cough Last Admin: 09/01/16 12:04 Dose: 10 ml Hydrocortisone (Anusol-Hc) 1 applic [place] BID [facility] Last Admin: 09/01/16 18:05 Dose: Not Given Piperacillin Sod/Tazobactam (Sod 2.25 gm/ Sodium Chloride) 100 mls @ 100 mls/ hr IVPB Q12 [facility] Last Admin: 09/02/16 08:53 Dose: 100 mls/hr Linezolid (Zyvox 600mg/300ml D5w) 300 mls @ 300 mls/hr IVPB Q12 [facility] Last Admin: 09/02/16 08:54 Dose: 300 mls/hr Meropenem 500 mg/ Sodium (Chloride) 100 mls @ 100 mls/hr IVPB DAILY [facility] Last Admin: 09/02/16 08:49 Dose: 100 mls/hr Sodium Chloride (Sodium Chloride 0.9%) 250 mls @ 999 mls/hr IV .Q16M [facility] Last Admin: 08/30/16 05:36 Dose: 999 mls/hr Amikacin Sulfate 250 mg/ (Sodium Chloride) 251 mls @ 250 mls/hr IVPB MWF [facility] Last Admin: 09/02/16 08:41 Dose: 250 mls/hr Insulin Detemir (Levemir) 30 units SC DAILY [facility] Last Admin: 09/02/16 08:45 Dose: 30 units Insulin Detemir (Levemir) 50 units SC HS [facility] Insulin Human Lispro (Humalog) 26 units SC AC [facility] Last Admin: 09/01/16 16:51 Dose: 26 u Lidocaine (Lidoderm) 1 ea TD DAILY [facility] Last Admin: 09/02/16 08:47 Dose: 1 ea Nystatin (Nystop Topical Powder) 1 applic TOP TID [facility] Ondansetron HCl (Zofran Inj) 4 mg IVP Q6 PRN PRN Reason: Nausea/Vomiting Last Admin: 09/01/16 06:15 Dose: 4 mg Pantoprazole Sodium (Protonix Inj) 40 mg IVP DAILY [facility] Last Admin: 09/02/16 08:49 Dose: 40 mg Senna/Docusate Sodium (Senokot S 50 Mg-8.6 Mg) 3 tab PO HS PRN PRN Reason: Constipation Sennosides (Senokot Tab) 17.2 mg PO HS [facility] Last Admin: 09/01/16 21:00 Dose: 17.2 mg Sevelamer HCl (Renagel) 1,600 mg PO TID [facility] Last Admin: 09/02/16 08:50 Dose: 1,600 mg Topiramate (Topamax) 50 mg PO BID [facility] Last Admin: 09/02/16 08:53 Dose: 50 mg Vitamin B Complex/Vit C/Folic Acid (Nephro-Ajay) 1 tab PO DAILY [facility] Last Admin: 09/02/16 08:49 Dose: 1 tab - Labs Labs: 09/02/16 04:20 09/02/16 04:20 PT 16.5 SECONDS (9.6-11.2) H 08/28/16 16:11 INR 1.59 (0.92-1.08) H 08/28/16 16:11 APTT 38.7 SECONDS (23.3-32.5) H 08/28/16 16:11
[2016-09-02] MEDS: Hydrocortisone 2.5% (Rectal) CREAM PR SCH ×2 (10:03→20:38)
--- NOTE | 2016-09-02 10:19 | CP.PCM.PN ---
Subjective - Date & Time of Evaluation Date of Evaluation: 09/02/16 Time of Evaluation: 10:15 - Subjective Subjective: Patient and bed awake and alert. Reported to have some diarrhea Also complaining of skin rash and of the breast given Mycostatin powder. Objective - Vital Signs/Intake and Output Vital Signs (last 24 hours): Temp Pulse Resp BP Pulse Ox 97.7 F 106 H 14 88/38 L 100 09/02/16 07:22 09/02/16 09:58 09/02/16 09:58 09/02/16 09:58 09/02/16 09:58 Intake and Output: 09/02/16 09/02/16 06:59 18:59 Intake Total 400 990 Balance 400 990 - Medications Medications: Current Medications Acetaminophen (Tylenol 325mg Tab) 650 mg PO Q4 PRN PRN Reason: Fever >100.4 F Last Admin: 08/28/16 15:23 Dose: 650 mg Acetaminophen (Tylenol 325mg Tab) 650 mg PO Q4 PRN PRN Reason: Pain, moderate (4-7) Last Admin: 09/02/16 06:01 Dose: 650 mg Albuterol/Ipratropium (Duoneb 3 Mg/0.5 Mg (3 Ml) Ud) 3 ml INH RQ4 PRN PRN Reason: Shortness of Breath Last Admin: 09/02/16 07:29 Dose: 3 ml Apixaban (Eliquis) 5 mg PO BID [facility] PRN Reason: Protocol Last Admin: 09/02/16 08:45 Dose: 5 mg Aspirin (Ecotrin) 81 mg PO DAILY [facility] Last Admin: 09/02/16 08:44 Dose: 81 mg Atorvastatin Calcium (Lipitor) 40 mg PO DAILY [facility] Last Admin: 09/02/16 08:48 Dose: 40 mg Cinacalcet (Sensipar) 30 mg PO DAILY [facility] Last Admin: 09/02/16 08:53 Dose: 30 mg Collagenase (Santyl) 1 applic TOP DAILY [facility] Last Admin: 09/02/16 08:50 Dose: 1 applic Docusate Sodium (Colace) 200 mg PO BID [facility] Last Admin: 09/02/16 08:43 Dose: Not Given Guaifenesin/Dextromethorphan (Robitussin Dm) 10 ml PO Q4 PRN PRN Reason: Cough Last Admin: 09/01/16 12:04 Dose: 10 ml Hydrocortisone (Anusol-Hc) [address] BID [facility] Last Admin: 09/02/16 10:03 Dose: 1 applic Piperacillin Sod/Tazobactam (Sod 2.25 gm/ Sodium Chloride) 100 mls @ 100 mls/ hr IVPB Q12 [facility] Last Admin: 09/02/16 08:53 Dose: 100 mls/hr Linezolid (Zyvox 600mg/300ml D5w) 300 mls @ 300 mls/hr IVPB Q12 [facility] Last Admin: 09/02/16 08:54 Dose: 300 mls/hr Meropenem 500 mg/ Sodium (Chloride) 100 mls @ 100 mls/hr IVPB DAILY [facility] Last Admin: 09/02/16 08:49 Dose: 100 mls/hr Sodium Chloride (Sodium Chloride 0.9%) 250 mls @ 999 mls/hr IV .Q16M [facility] Last Admin: 08/30/16 05:36 Dose: 999 mls/hr Amikacin Sulfate 250 mg/ (Sodium Chloride) 251 mls @ 250 mls/hr IVPB MWF [facility] Last Admin: 09/02/16 08:41 Dose: 250 mls/hr Insulin Detemir (Levemir) 30 units SC DAILY [facility] Last Admin: 09/02/16 08:45 Dose: 30 units Insulin Detemir (Levemir) 50 units SC [facility] Insulin Human Lispro (Humalog) 26 units SC AC [facility] Last Admin: 09/01/16 16:51 Dose: 26 u Lidocaine (Lidoderm) 1 ea TD DAILY [facility] Last Admin: 09/02/16 08:47 Dose: 1 ea Nystatin (Nystop Topical Powder) 1 applic TOP TID [facility] Ondansetron HCl (Zofran Inj) 4 mg IVP Q6 PRN PRN Reason: Nausea/Vomiting Last Admin: 09/01/16 06:15 Dose: 4 mg Pantoprazole Sodium (Protonix Inj) 40 mg IVP DAILY [facility] Last Admin: 09/02/16 08:49 Dose: 40 mg Senna/Docusate Sodium (Senokot S 50 Mg-8.6 Mg) 3 tab PO HS PRN PRN Reason: Constipation Sennosides (Senokot Tab) 17.2 mg PO [facility] Last Admin: 09/01/16 21:00 Dose: 17.2 mg Sevelamer HCl (Renagel) 1,600 mg PO TID [facility] Last Admin: 09/02/16 08:50 Dose: 1,600 mg Topiramate (Topamax) 50 mg PO BID [facility] Last Admin: 09/02/16 08:53 Dose: 50 mg Vitamin B Complex/Vit C/Folic Acid (Nephro-Ajay) 1 tab PO DAILY [facility] Last Admin: 09/02/16 08:49 Dose: 1 tab - Labs Labs: 09/02/16 04:20 09/02/16 04:20 PT 16.5 SECONDS (9.6-11.2) H 08/28/16 16:11 INR 1.59 (0.92-1.08) H 08/28/16 16:11 APTT 38.7 SECONDS (23.3-32.5) H 08/28/16 16:11 - Constitutional Appears: No Acute Distress - ENT Exam ENT Exam: Mucous Membranes Moist - Respiratory Exam Respiratory Exam: Rhonchi. absent: Chest Wall Tenderness - Cardiovascular Exam Cardiovascular Exam: absent: JVD, Rubs - GI/Abdominal Exam GI & Abdominal Exam: Soft - Extremities Exam Extremities Exam: absent: Calf Tenderness - Back Exam Back Exam: absent: CVA tenderness (L), CVA tenderness (R) - Neurological Exam Neurological Exam: Alert Assessment and Plan (1) Cellulitis of leg Status: Acute (2) ESRD (end stage renal disease) Assessment & Plan: Patient with end stage renal disease receiving hemodialysis today as scheduled. Ultrafiltration going to be approximately thousand cc as tolerated Support blood pressure with albumin as needed. Potassium and sodium bath as ordered. Sepsis patient receiving antibiotics repeat blood culture probably negative. Antibiotics as per ID Cardiac status appeared to be stable DC vasopressor as per cardiology. Continue monitoring EPO 15,000 units IV during each hemodialysis, Consider blood transfusion at least 1 unit because of the low blood pressure also to maintain hemoglobin above 9 with this cardiac status. Status: Acute
--- NOTE | 2016-09-02 11:02 | CP.PCM.PN ---
Subjective - Date & Time of Evaluation Date of Evaluation: 09/02/16 Time of Evaluation: 10:57 - Subjective Subjective: Pt looks much better today, She is afebrile , her last 2 c/s were negative, she is no longer on pressors, and cbc has been more or less stable. She is on 3 antibiotics and they seemed to have worked well. She will continue the dialysis and i will monitor the CBC. She is on eliquis for anticoagulation. Objective - Vital Signs/Intake and Output Vital Signs (last 24 hours): Temp Pulse Resp BP Pulse Ox 97.7 F 106 H 14 88/38 L 100 09/02/16 07:22 09/02/16 09:58 09/02/16 09:58 09/02/16 09:58 09/02/16 09:58 Intake and Output: 09/02/16 09/02/16 06:59 18:59 Intake Total 400 990 Balance 400 990 - Medications Medications: Current Medications Acetaminophen (Tylenol 325mg Tab) 650 mg PO Q4 PRN PRN Reason: Fever >100.4 F Last Admin: 08/28/16 15:23 Dose: 650 mg Acetaminophen (Tylenol 325mg Tab) 650 mg PO Q4 PRN PRN Reason: Pain, moderate (4-7) Last Admin: 09/02/16 06:01 Dose: 650 mg Albuterol/Ipratropium (Duoneb 3 Mg/0.5 Mg (3 Ml) Ud) 3 ml INH RQ4 PRN PRN Reason: Shortness of Breath Last Admin: 09/02/16 07:29 Dose: 3 ml Apixaban (Eliquis) 5 mg PO BID [facility] PRN Reason: Protocol Last Admin: 09/02/16 08:45 Dose: 5 mg Aspirin (Ecotrin) 81 mg PO DAILY [facility] Last Admin: 09/02/16 08:44 Dose: 81 mg Atorvastatin Calcium (Lipitor) 40 mg PO DAILY [facility] Last Admin: 09/02/16 08:48 Dose: 40 mg Cinacalcet (Sensipar) 30 mg PO DAILY [facility] Last Admin: 09/02/16 08:53 Dose: 30 mg Collagenase (Santyl) 1 applic TOP DAILY [facility] Last Admin: 09/02/16 08:50 Dose: 1 applic Docusate Sodium (Colace) 200 mg PO BID [facility] Last Admin: 09/02/16 08:43 Dose: Not Given Epoetin Tha (Procrit) 20,000 unit IV [facility] Guaifenesin/Dextromethorphan (Robitussin Dm) 10 ml PO Q4 PRN PRN Reason: Cough Last Admin: 09/01/16 12:04 Dose: 10 ml Hydrocortisone (Anusol-Hc) 1 applic RI BID [facility] Last Admin: 09/02/16 10:03 Dose: 1 applic Piperacillin Sod/Tazobactam (Sod 2.25 gm/ Sodium Chloride) 100 mls @ 100 mls/ hr IVPB Q12 [facility] Last Admin: 09/02/16 08:53 Dose: 100 mls/hr Linezolid (Zyvox 600mg/300ml D5w) 300 mls @ 300 mls/hr IVPB Q12 [facility] Last Admin: 09/02/16 08:54 Dose: 300 mls/hr Meropenem 500 mg/ Sodium (Chloride) 100 mls @ 100 mls/hr IVPB DAILY [facility] Last Admin: 09/02/16 08:49 Dose: 100 mls/hr Sodium Chloride (Sodium Chloride 0.9%) 250 mls @ 999 mls/hr IV .Q16M [facility] Last Admin: 08/30/16 05:36 Dose: 999 mls/hr Amikacin Sulfate 250 mg/ (Sodium Chloride) 251 mls @ 250 mls/hr IVPB [facility] Last Admin: 09/02/16 08:41 Dose: 250 mls/hr Insulin Detemir (Levemir) 30 units SC DAILY [facility] Last Admin: 09/02/16 08:45 Dose: 30 units Insulin Detemir (Levemir) 50 units SC [facility] Insulin Human Lispro (Humalog) 26 units SC AC [facility] Last Admin: 09/01/16 16:51 Dose: 26 u Lidocaine (Lidoderm) 1 ea TD DAILY [facility] Last Admin: 09/02/16 08:47 Dose: 1 ea Nystatin (Nystop Topical Powder) 1 applic TOP TID [facility] Ondansetron HCl (Zofran Inj) 4 mg IVP Q6 PRN PRN Reason: Nausea/Vomiting Last Admin: 09/01/16 06:15 Dose: 4 mg Pantoprazole Sodium (Protonix Inj) 40 mg IVP DAILY [facility] Last Admin: 09/02/16 08:49 Dose: 40 mg Senna/Docusate Sodium (Senokot S 50 Mg-8.6 Mg) 3 tab PO HS PRN PRN Reason: Constipation Sennosides (Senokot Tab) 17.2 mg PO HS [facility] Last Admin: 09/01/16 21:00 Dose: 17.2 mg Sevelamer HCl (Renagel) 1,600 mg PO TID [facility] Last Admin: 09/02/16 08:50 Dose: 1,600 mg Topiramate (Topamax) 50 mg PO BID [facility] Last Admin: 09/02/16 08:53 Dose: 50 mg Vitamin B Complex/Vit C/Folic Acid (Nephro-Ajay) 1 tab PO DAILY [facility] Last Admin: 09/02/16 08:49 Dose: 1 tab - Labs Labs: 09/02/16 04:20 09/02/16 04:20 PT 16.5 SECONDS (9.6-11.2) H 08/28/16 16:11 INR 1.59 (0.92-1.08) H 08/28/16 16:11 APTT 38.7 SECONDS (23.3-32.5) H 08/28/16 16:11
--- NOTE | 2016-09-02 11:42 | CP.CCUPN ---
<Ilan Rees - Last Filed: 09/02/16 12:35> CCU Subjective - Physician Review Events Since Last Encounter (Free Text): 09/02/16 11:38 Pt. seen at bedside this morning during rounds with Dr. Frey. Pt. with no complaints at this time. Pt. does report that her constipation has resolved. Pt. reports her Rt. foot is not in pain at this time. Pt. now reports has had multiple bowel movements since yesterday described as watery and non-bloody. Pt. denies any headache, shortness of breath, chest pain, abdominal pain, limb pain. 09/02/16 12:01 09/02/16 12:30 09/02/16 12:32 CCU Objective - Vital Signs / Intake & Output Vital Signs (Last 4 hours): Vital Signs Pulse Resp BP Pulse Ox 09/02/16 09:58 106 H 14 88/38 L 100 Intake and Output (Last 8hrs): Intake & Output 09/01/16 09/02/16 09/02/16 22:59 06:59 14:59 Intake Total 832 990 Balance 832 990 Intake: IV 72 Intake, Piggyback 400 750 Oral 360 240 Other: # Bowel Movements 1 1 1 - Physical Exam Head: Positive for: Atraumatic, Normocephalic Pupils: Positive for: PERRL Neck: Positive for: Normal Range of Motion. Negative for: JVD Respiratory/Chest: Positive for: Other (Right SC dialysis catheter and PICC line on right arm). 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) Neurological: Positive for: Speech Normal, Other (Alert awake oriented x 3) Skin: Positive for: Warm, Normal Color Psychiatric: Positive for: Alert, Oriented x 3, Normal Insight, Normal Concentration - Medications Active Medications: Active Medications Generic Name Dose Route Start Last Admin Trade Name Freq PRN Reason Stop Dose Admin Acetaminophen 650 mg 08/28/16 00:09 08/28/16 15:23 Tylenol 325mg Tab PO 650 mg Q4 PRN Administration Fever >100.4 F Acetaminophen 650 mg 08/28/16 00:12 09/02/16 06:01 Tylenol 325mg Tab PO 650 mg Q4 PRN Administration Pain, moderate (4-7) Albuterol/Ipratropium 3 ml 08/29/16 18:39 09/02/16 07:29 Duoneb 3 Mg/0.5 Mg (3 Ml) Ud INH 3 ml RQ4 PRN Administration Shortness of Breath Apixaban 5 mg 08/28/16 09:15 09/02/16 08:45 Eliquis PO 5 mg BID JASPER Administration Protocol Aspirin 81 mg 08/28/16 09:00 09/02/16 08:44 Ecotrin PO 81 mg DAILY JASPER Administration Atorvastatin Calcium 40 mg 08/28/16 09:00 09/02/16 08:48 Lipitor PO 40 mg DAILY JASPER Administration Cinacalcet 30 mg 08/28/16 11:15 09/02/16 08:53 Sensipar PO 30 mg DAILY JASPER Administration Collagenase 1 applic 08/28/16 09:00 09/02/16 08:50 Santyl TOP 1 applic DAILY JASPER Administration Docusate Sodium 200 mg 08/28/16 09:00 09/02/16 08:43 Colace PO Not Given BID JASPER Epoetin Tha 20,000 unit 09/02/16 09:00 Procrit IV MWF JASPER Guaifenesin/Dextromethorphan 10 ml 09/01/16 10:33 09/01/16 12:04 Robitussin Dm PO 10 ml Q4 PRN Administration Cough Hydrocortisone 1 applic 09/01/16 10:45 09/02/16 10:03 Anusol-Hc IN 1 applic BID JASPER Administration Piperacillin Sod/Tazobactam 100 mls @ 100 mls/hr 08/27/16 21:00 09/02/16 08:53 Sod 2.25 gm/ Sodium Chloride IVPB 100 mls/hr Q12 JASPER Administration Linezolid 300 mls @ 300 mls/hr 08/27/16 21:00 09/02/16 08:54 Zyvox 600mg/300ml D5w IVPB 300 mls/hr Q12 JASPER Administration Meropenem 500 mg/ Sodium 100 mls @ 100 mls/hr 08/29/16 09:00 09/02/16 08:49 Chloride IVPB 100 mls/hr DAILY JASPER Administration Sodium Chloride 250 mls @ 999 mls/hr 08/29/16 23:30 08/30/16 05:36 Sodium Chloride 0.9% IV 999 mls/hr .Q16M JASPER Administration Amikacin Sulfate 250 mg/ 251 mls @ 250 mls/hr 09/02/16 09:00 09/02/16 08:41 Sodium Chloride IVPB 250 mls/hr MWF JASPER Administration Insulin Detemir 30 units 09/01/16 10:00 09/02/16 08:45 Levemir SC 30 units DAILY JASPER Administration Insulin Detemir 50 units 09/01/16 22:00 Levemir SC HS JASPER Insulin Human Lispro 26 units 09/01/16 07:30 09/01/16 16:51 Humalog SC 26 u AC JASPER Administration Lidocaine 1 ea 08/29/16 13:30 09/02/16 08:47 Lidoderm TD 1 ea DAILY JASPER Administration Nystatin 1 applic 09/02/16 13:00 Nystop Topical Powder TOP TID JASPER Ondansetron HCl 4 mg 08/29/16 19:00 09/01/16 06:15 Zofran Inj IVP 4 mg Q6 PRN Administration Nausea/Vomiting Pantoprazole Sodium 40 mg 08/31/16 11:00 09/02/16 08:49 Protonix Inj IVP 40 mg DAILY JASPER Administration Senna/Docusate Sodium 3 tab 08/28/16 00:07 Senokot S 50 Mg-8.6 Mg PO HS PRN Constipation Sennosides 17.2 mg 08/30/16 22:00 09/01/16 21:00 Senokot Tab PO 17.2 mg HS JASPER Administration Sevelamer HCl 1,600 mg 08/28/16 11:11 09/02/16 08:50 Renagel PO 1,600 mg TID JASPER Administration Topiramate 50 mg 08/30/16 18:45 09/02/16 08:53 Topamax PO 50 mg BID JASPER Administration Vitamin B Complex/Vit C/Folic Acid 1 tab 08/28/16 09:00 09/02/16 08:49 Nephro-Ajay PO 1 tab DAILY JASPER Administration - Patient Studies Lab Studies: Microbiology Studies 08/29/16 10:51 Blood Culture - Preliminary Blood NO GROWTH AFTER 4 DAYS 08/31/16 09:23 Blood Culture - Preliminary Blood NO GROWTH AFTER 48 HOURS 08/28/16 16:11 Blood Culture - Preliminary Blood-Thru Central Line NO GROWTH AFTER 4 DAYS Lab Studies 09/02/16 09/02/16 09/02/16 Range/Units 11:29 04:55 04:20 WBC 17.4 H (4.8-10.8) K/uL RBC 3.04 L (3.80-5.20) Mil/uL Hgb 8.8 L (12.0-16.0) g/dL Hct 28.3 L (34.0-47.0) % MCV 93.3 (81.0-99.0) fl MCH 29.1 (27.0-31.0) pg MCHC 31.2 L (33.0-37.0) g/dL RDW 21.0 H (11.5-14.5) % Plt Count 171 (130-400) K/uL MPV 10.8 (7.2-11.7) fl Neut % (Auto) 90.6 H (50.0-75.0) % Lymph % (Auto) 3.3 L (20.0-40.0) % [place] % (Auto) 5.3 (0.0-10.0) % Eos % (Auto) 0.5 (0.0-4.0) % Baso % (Auto) 0.3 (0.0-2.0) % Neut # 15.8 H (1.8-7.0) K/uL Lymph # 0.6 L (1.0-4.3) K/uL [place] # 0.9 H (0.0-0.8) K/uL Eos # 0.1 (0.0-0.7) K/uL Baso # 0.1 (0.0-0.2) K/uL Neutrophils % (Manual) 92 H (42-75) % Band Neutrophils % (0-2) % Lymphocytes % (Manual) 3 L (20-50) % Monocytes % (Manual) 5 (0-10) % Platelet Estimate Normal (NORMAL) Large Platelets Present Hypochromasia (manual) Slight Poikilocytosis (manual Slight Anisocytosis (manual) Slight Target Cells Slight pO2 (30-55) mm/Hg VBG pH (7.32-7.43) VBG pCO2 (40-60) mmHg VBG HCO3 mmol/L VBG Total CO2 (22-28) mmol/L VBG O2 Sat (Calc) (40-65) % VBG Base Excess (0.0-2.0) mmol/L VBG Potassium (3.6-5.2) mmol/L Glucose (65-105) mg/dL Lactate (0.7-2.1) mmol/L FiO2 % Crit Value Called To Crit Value Called By Crit Value Read Back Blood Gas Notified Time Sodium 137 (132-148) mmol/l Potassium 4.1 (3.6-5.0) MMOL/L Chloride 97 L (98-107) mmol/L Carbon Dioxide 22 (22-30) mmol/L Anion Gap 22 H (10-20) BUN 40 H (7-17) mg/dl Creatinine 8.1 H* (0.7-1.2) mg/dL Est GFR ( Amer) 6 Est GFR (Non-Af Amer) 5 POC Glucose (mg/dL) 109 161 H (65-110) mg/dL Random Glucose 151 H (65-105) mg/dL Calcium 8.3 L (8.4-10.2) mg/dL Iron (37-170) ug/dL TIBC (250-450) ug/dL % Saturation (20-55) % Ferritin > 1000.0 ng/mL Total Bilirubin 0.7 (0.2-1.3) mg/dl AST 54 H (14-36) U/L ALT 56 H D (9-52) U/L Alkaline Phosphatase 160 H (38-126) U/L Total Protein 7.0 (6.3-8.2) G/DL Albumin 2.9 L (3.5-5.0) g/dL Globulin 4.1 H (2.2-3.9) gm/dL Albumin/Globulin Ratio 0.7 L (1.0-2.1) Venous Blood Potassium (3.6-5.2) mmol/L 09/02/16 09/01/16 09/01/16 Range/Units 00:14 22:56 21:57 WBC (4.8-10.8) K/uL RBC (3.80-5.20) Mil/uL Hgb (12.0-16.0) g/dL Hct (34.0-47.0) % MCV (81.0-99.0) fl MCH (27.0-31.0) pg MCHC (33.0-37.0) g/dL RDW (11.5-14.5) % Plt Count (130-400) K/uL MPV (7.2-11.7) fl Neut % (Auto) (50.0-75.0) % Lymph % (Auto) (20.0-40.0) % [place] % (Auto) (0.0-10.0) % Eos % (Auto) (0.0-4.0) % Baso % (Auto) (0.0-2.0) % Neut # (1.8-7.0) K/uL Lymph # (1.0-4.3) K/uL [place] # (0.0-0.8) K/uL Eos # (0.0-0.7) K/uL Baso # (0.0-0.2) K/uL Neutrophils % (Manual) (42-75) % Band Neutrophils % (0-2) % Lymphocytes % (Manual) (20-50) % Monocytes % (Manual) (0-10) % Platelet Estimate (NORMAL) Large Platelets Hypochromasia (manual) Poikilocytosis (manual Anisocytosis (manual) Target Cells pO2 (30-55) mm/Hg VBG pH (7.32-7.43) VBG pCO2 (40-60) mmHg VBG HCO3 mmol/L VBG Total CO2 (22-28) mmol/L VBG O2 Sat (Calc) (40-65) % VBG Base Excess (0.0-2.0) mmol/L VBG Potassium (3.6-5.2) mmol/L Glucose (65-105) mg/dL Lactate (0.7-2.1) mmol/L FiO2 % Crit Value Called To Crit Value Called By Crit Value Read Back Blood Gas Notified Time Sodium (132-148) mmol/l Potassium (3.6-5.0) MMOL/L Chloride (98-107) mmol/L Carbon Dioxide (22-30) mmol/L Anion Gap (10-20) BUN (7-17) mg/dl Creatinine (0.7-1.2) mg/dL Est GFR ( Amer) Est GFR (Non-Af Amer) POC Glucose (mg/dL) 222 H 69 (65-110) mg/dL Random Glucose (65-105) mg/dL Calcium (8.4-10.2) mg/dL Iron 97 (37-170) ug/dL TIBC 134 L (250-450) ug/dL % Saturation 73 H (20-55) % Ferritin ng/mL Total Bilirubin (0.2-1.3) mg/dl AST (14-36) U/L ALT (9-52) U/L Alkaline Phosphatase (38-126) U/L Total Protein (6.3-8.2) G/DL Albumin (3.5-5.0) g/dL Globulin (2.2-3.9) gm/dL Albumin/Globulin Ratio (1.0-2.1) Venous Blood Potassium (3.6-5.2) mmol/L 09/01/16 09/01/16 09/01/16 Range/Units 20:15 20:14 20:05 WBC 16.9 H (4.8-10.8) K/uL RBC 3.16 L (3.80-5.20) Mil/uL Hgb 9.2 L (12.0-16.0) g/dL Hct 29.5 L (34.0-47.0) % MCV 93.4 (81.0-99.0) fl MCH 29.0 (27.0-31.0) pg MCHC 31.1 L (33.0-37.0) g/dL RDW 21.0 H (11.5-14.5) % Plt Count 164 (130-400) K/uL MPV 10.7 (7.2-11.7) fl Neut % (Auto) 90.3 H (50.0-75.0) % Lymph % (Auto) 2.3 L (20.0-40.0) % [place] % (Auto) 6.5 (0.0-10.0) % Eos % (Auto) 0.5 (0.0-4.0) % Baso % (Auto) 0.4 (0.0-2.0) % Neut # 15.3 H (1.8-7.0) K/uL Lymph # 0.4 L (1.0-4.3) K/uL [place] # 1.1 H (0.0-0.8) K/uL Eos # 0.1 (0.0-0.7) K/uL Baso # 0.1 (0.0-0.2) K/uL Neutrophils % (Manual) 89 H (42-75) % Band Neutrophils % 2 (0-2) % Lymphocytes % (Manual) 2 L (20-50) % Monocytes % (Manual) 7 (0-10) % Platelet Estimate Normal (NORMAL) Large Platelets Hypochromasia (manual) Slight Poikilocytosis (manual Anisocytosis (manual) Moderate Target Cells Slight pO2 35 (30-55) mm/Hg VBG pH 7.34 (7.32-7.43) VBG pCO2 46 (40-60) mmHg VBG HCO3 23.0 mmol/L VBG Total CO2 26.2 (22-28) mmol/L VBG O2 Sat (Calc) 67.7 H (40-65) % VBG Base Excess -1.3 L (0.0-2.0) mmol/L VBG Potassium 3.5 L (3.6-5.2) mmol/L Glucose 12 L* D (65-105) mg/dL Lactate 1.5 (0.7-2.1) mmol/L FiO2 28.0 % Crit Value Called To Susan monique rn Crit Value Called By 333 Crit Value Read Back Y Blood Gas Notified Time 2004 Sodium 133.0 140 (132-148) mmol/l Potassium 3.7 (3.6-5.0) MMOL/L Chloride 100.0 97 L (98-107) mmol/L Carbon Dioxide 25 (22-30) mmol/L Anion Gap 22 H (10-20) BUN 38 H (7-17) mg/dl Creatinine 7.8 H* (0.7-1.2) mg/dL Est GFR ( Amer) 7 Est GFR (Non-Af Amer) 6 POC Glucose (mg/dL) < 20 L* (65-110) mg/dL Random Glucose < 20 L* D (65-105) mg/dL Calcium 8.7 (8.4-10.2) mg/dL Iron (37-170) ug/dL TIBC (250-450) ug/dL % Saturation (20-55) % Ferritin ng/mL Total Bilirubin (0.2-1.3) mg/dl AST (14-36) U/L ALT (9-52) U/L Alkaline Phosphatase (38-126) U/L Total Protein (6.3-8.2) G/DL Albumin (3.5-5.0) g/dL Globulin (2.2-3.9) gm/dL Albumin/Globulin Ratio (1.0-2.1) Venous Blood Potassium 3.5 L (3.6-5.2) mmol/L Laboratory Results - last 24 hr 09/01/16 09/01/16 09/01/16 20:05 20:14 20:15 WBC 16.9 H RBC 3.16 L Hgb 9.2 L Hct 29.5 L MCV 93.4 MCH 29.0 MCHC 31.1 L RDW 21.0 H Plt Count 164 MPV 10.7 Neut % (Auto) 90.3 H Lymph % (Auto) 2.3 L [place] % (Auto) 6.5 Eos % (Auto) 0.5 Baso % (Auto) 0.4 Neut # 15.3 H Lymph # 0.4 L [place] # 1.1 H Eos # 0.1 Baso # 0.1 Neutrophils % (Manual) 89 H Band Neutrophils % 2 Lymphocytes % (Manual) 2 L Monocytes % (Manual) 7 Platelet Estimate Normal Large Platelets Hypochromasia (manual) Slight Poikilocytosis (manual Anisocytosis (manual) Moderate Target Cells Slight pO2 35 VBG pH 7.34 VBG pCO2 46 VBG HCO3 23.0 VBG Total CO2 26.2 VBG O2 Sat (Calc) 67.7 H VBG Base Excess -1.3 L VBG Potassium 3.5 L Glucose 12 L* D Lactate 1.5 FiO2 28.0 Crit Value Called To Susan monique rn Crit Value Called By Jessi Crit Value Read Back Y Blood Gas Notified Time 2004 Sodium 140 133.0 Potassium 3.7 Chloride 97 L 100.0 Carbon Dioxide 25 Anion Gap 22 H BUN 38 H Creatinine 7.8 H* Est GFR ( Amer) 7 Est GFR (Non-Af Amer) 6 POC Glucose (mg/dL) < 20 L* Random Glucose < 20 L* D Calcium 8.7 Iron TIBC % Saturation Ferritin Total Bilirubin AST ALT Alkaline Phosphatase Total Protein Albumin Globulin Albumin/Globulin Ratio Venous Blood Potassium 3.5 L 09/01/16 09/01/16 09/02/16 21:57 22:56 00:14 WBC RBC Hgb Hct MCV MCH MCHC RDW Plt Count MPV Neut % (Auto) Lymph % (Auto) [place] % (Auto) Eos % (Auto) Baso % (Auto) Neut # Lymph # [place] # Eos # Baso # Neutrophils % (Manual) Band Neutrophils % Lymphocytes % (Manual) Monocytes % (Manual) Platelet Estimate Large Platelets Hypochromasia (manual) Poikilocytosis (manual Anisocytosis (manual) Target Cells pO2 VBG pH VBG pCO2 VBG HCO3 VBG Total CO2 VBG O2 Sat (Calc) VBG Base Excess VBG Potassium Glucose Lactate FiO2 Crit Value Called To Crit Value Called By Crit Value Read Back Blood Gas Notified Time Sodium Potassium Chloride Carbon Dioxide Anion Gap BUN Creatinine Est GFR ( Amer) Est GFR (Non-Af Amer) POC Glucose (mg/dL) 69 222 H Random Glucose Calcium Iron 97 TIBC 134 L % Saturation 73 H Ferritin Total Bilirubin AST ALT Alkaline Phosphatase Total Protein Albumin Globulin Albumin/Globulin Ratio Venous Blood Potassium 09/02/16 09/02/16 09/02/16 04:20 04:55 11:29 WBC 17.4 H RBC 3.04 L Hgb 8.8 L Hct 28.3 L MCV 93.3 MCH 29.1 MCHC 31.2 L RDW 21.0 H Plt Count 171 MPV 10.8 Neut % (Auto) 90.6 H Lymph % (Auto) 3.3 L [place] % (Auto) 5.3 Eos % (Auto) 0.5 Baso % (Auto) 0.3 Neut # 15.8 H Lymph # 0.6 L [place] # 0.9 H Eos # 0.1 Baso # 0.1 Neutrophils % (Manual) 92 H Band Neutrophils % Lymphocytes % (Manual) 3 L Monocytes % (Manual) 5 Platelet Estimate Normal Large Platelets Present Hypochromasia (manual) Slight Poikilocytosis (manual Slight Anisocytosis (manual) Slight Target Cells Slight pO2 VBG pH VBG pCO2 VBG HCO3 VBG Total CO2 VBG O2 Sat (Calc) VBG Base Excess VBG Potassium Glucose Lactate FiO2 Crit Value Called To Crit Value Called By Crit Value Read Back Blood Gas Notified Time Sodium 137 Potassium 4.1 Chloride 97 L Carbon Dioxide 22 Anion Gap 22 H BUN 40 H Creatinine 8.1 H* Est GFR ( Amer) 6 Est GFR (Non-Af Amer) 5 POC Glucose (mg/dL) 161 H 109 Random Glucose 151 H Calcium 8.3 L Iron TIBC % Saturation Ferritin > 1000.0 Total Bilirubin 0.7 AST 54 H ALT 56 H D Alkaline Phosphatase 160 H Total Protein 7.0 Albumin 2.9 L Globulin 4.1 H Albumin/Globulin Ratio 0.7 L Venous Blood Potassium Fingerstick Blood Sugar Results: 161 Review of Systems - Review of Systems Review of Systems: See HPI Critical Care Progress Note - Nutrition Nutrition: Nutrition Category Date Time Status Renal Diet [DIET] Diets 08/30/16 Dinner Active Assessment/Plan - Assessment and Plan (Free Text) Assessment: 46 y.o. female with multiple co-morbid conditions admitted to ICU for Sepsis with Hypotension Sepsis- with Hypotension initial blood cultures show Gram negative Rods 1- c/w Amikacin 2- c/w Meropenem 3- c/w Zosyn 4- c/w Zyvox 5- I.D. Dr. valdivia on board 6- Awaiting MRI of foot to evaluate for Osteomyelitis to determine duration of antibiotic therapy- Repeat BCx negative to date Pt. for MRI when hemodynamically stable. 7- Dobutamine Drip Discontinued- Cardiology Dr. Richard Shepard on board ESRD on HD 1- c/w HD 2- c/w renagel 3- c/w epocrit HTN 1- hold BP meds for now 2- Cardiology Dr. richard Shepard on board Peripheral Vascular Disease 1- Asa 81mg 2- Atorvastatin 40mg Type II DM with compliations 1-c/w current mangement 2- Levemir 30 units qhs DVT prophylaxis - Protein C/S deficiency 1- Elequis 50mg po BID 2- Heme-onc Dr. Andrew Shepard on board GI prophylaxis 1-Protonix 40mg Fungal infection below breasts 1- Nystating topical Constipation- Resolving 1-Consider holding senokot <Jaswinder Das - Last Filed: 09/02/16 13:47> CCU Objective - Vital Signs / Intake & Output Vital Signs (Last 4 hours): Vital Signs Temp Pulse Resp BP Pulse Ox 09/02/16 11:53 97.6 F 108 H 22 103/59 L 100 09/02/16 09:58 106 H 14 88/38 L 100 Intake and Output (Last 8hrs): Intake & Output 09/01/16 09/02/16 09/02/16 22:59 06:59 14:59 Intake Total 832 990 Balance 832 990 Intake: IV 72 Intake, Piggyback 400 750 Oral 360 240 Other: # Bowel Movements 1 1 1 - Medications Active Medications: Active Medications Generic Name Dose Route Start Last Admin Trade Name Freq PRN Reason Stop Dose Admin Acetaminophen 650 mg 08/28/16 00:09 08/28/16 15:23 Tylenol 325mg Tab PO 650 mg Q4 PRN Administration Fever >100.4 F Acetaminophen 650 mg 08/28/16 00:12 09/02/16 06:01 Tylenol 325mg Tab PO 650 mg Q4 PRN Administration Pain, moderate (4-7) Albuterol/Ipratropium 3 ml 08/29/16 18:39 09/02/16 07:29 Duoneb 3 Mg/0.5 Mg (3 Ml) Ud INH 3 ml RQ4 PRN Administration Shortness of Breath Apixaban 5 mg 08/28/16 09:15 09/02/16 08:45 Eliquis PO 5 mg BID JASPER Administration Protocol Aspirin 81 mg 08/28/16 09:00 09/02/16 08:44 Ecotrin PO 81 mg DAILY JASPER Administration Atorvastatin Calcium 40 mg 08/28/16 09:00 09/02/16 08:48 Lipitor PO 40 mg DAILY JASPER Administration Cinacalcet 30 mg 08/28/16 11:15 09/02/16 08:53 Sensipar PO 30 mg DAILY JASPER Administration Collagenase 1 applic 08/28/16 09:00 09/02/16 08:50 Santyl TOP 1 applic DAILY JASPER Administration Docusate Sodium 200 mg 08/28/16 09:00 09/02/16 08:43 Colace PO Not Given BID JASPER Epoetin Tha 20,000 unit 09/02/16 09:00 Procrit IV MWF JASPER Guaifenesin/Dextromethorphan 10 ml 09/01/16 10:33 09/01/16 12:04 Robitussin Dm PO 10 ml Q4 PRN Administration Cough Hydrocortisone 1 applic 09/01/16 10:45 09/02/16 10:03 Anusol-Hc IN 1 applic BID JASPER Administration Piperacillin Sod/Tazobactam 100 mls @ 100 mls/hr 08/27/16 21:00 09/02/16 08:53 Sod 2.25 gm/ Sodium Chloride IVPB 100 mls/hr Q12 JASPER Administration Linezolid 300 mls @ 300 mls/hr 08/27/16 21:00 09/02/16 08:54 Zyvox 600mg/300ml D5w IVPB 300 mls/hr Q12 JASPER Administration Meropenem 500 mg/ Sodium 100 mls @ 100 mls/hr 08/29/16 09:00 09/02/16 08:49 Chloride IVPB 100 mls/hr DAILY JASPER Administration Sodium Chloride 250 mls @ 999 mls/hr 08/29/16 23:30 08/30/16 05:36 Sodium Chloride 0.9% IV 999 mls/hr .Q16M JASPER Administration Amikacin Sulfate 250 mg/ 251 mls @ 250 mls/hr 09/02/16 09:00 09/02/16 08:41 Sodium Chloride IVPB 250 mls/hr MWF JASPER Administration Insulin Detemir 30 units 09/01/16 10:00 09/02/16 08:45 Levemir SC 30 units DAILY JASPER Administration Insulin Detemir 50 units 09/01/16 22:00 Levemir SC HS JASPER Insulin Human Lispro 26 units 09/01/16 07:30 09/02/16 11:57 Humalog SC 26 u AC JASPER Administration Lidocaine 1 ea 08/29/16 13:30 09/02/16 08:47 Lidoderm TD 1 ea DAILY JASPER Administration Nystatin 1 applic 09/02/16 13:00 09/02/16 11:59 Nystop Topical Powder TOP 1 applic TID JASPER Administration Ondansetron HCl 4 mg 08/29/16 19:00 09/02/16 12:11 Zofran Inj IVP 4 mg Q6 PRN Administration Nausea/Vomiting Pantoprazole Sodium 40 mg 08/31/16 11:00 09/02/16 08:49 Protonix Inj IVP 40 mg DAILY JASPER Administration Senna/Docusate Sodium 3 tab 08/28/16 00:07 Senokot S 50 Mg-8.6 Mg PO HS PRN Constipation Sennosides 17.2 mg 08/30/16 22:00 09/01/16 21:00 Senokot Tab PO 17.2 mg HS JASPER Administration Sevelamer HCl 1,600 mg 08/28/16 11:11 09/02/16 12:00 Renagel PO 1,600 mg TID JASPER Administration Topiramate 50 mg 08/30/16 18:45 09/02/16 08:53 Topamax PO 50 mg BID JASPER Administration Vitamin B Complex/Vit C/Folic Acid 1 tab 08/28/16 09:00 09/02/16 08:49 Nephro-Ajay PO 1 tab DAILY JASPER Administration - Patient Studies Lab Studies: Microbiology Studies 08/29/16 10:51 Blood Culture - Preliminary Blood NO GROWTH AFTER 4 DAYS 08/31/16 09:23 Blood Culture - Preliminary Blood NO GROWTH AFTER 48 HOURS 08/28/16 16:11 Blood Culture - Preliminary Blood-Thru Central Line NO GROWTH AFTER 4 DAYS Lab Studies 09/02/16 09/02/16 09/02/16 Range/Units 11:29 04:55 04:20 WBC 17.4 H (4.8-10.8) K/uL RBC 3.04 L (3.80-5.20) Mil/uL Hgb 8.8 L (12.0-16.0) g/dL Hct 28.3 L (34.0-47.0) % MCV 93.3 (81.0-99.0) fl MCH 29.1 (27.0-31.0) pg MCHC 31.2 L (33.0-37.0) g/dL RDW 21.0 H (11.5-14.5) % Plt Count 171 (130-400) K/uL MPV 10.8 (7.2-11.7) fl Neut % (Auto) 90.6 H (50.0-75.0) % Lymph % (Auto) 3.3 L (20.0-40.0) % [place] % (Auto) 5.3 (0.0-10.0) % Eos % (Auto) 0.5 (0.0-4.0) % Baso % (Auto) 0.3 (0.0-2.0) % Neut # 15.8 H (1.8-7.0) K/uL Lymph # 0.6 L (1.0-4.3) K/uL [place] # 0.9 H (0.0-0.8) K/uL Eos # 0.1 (0.0-0.7) K/uL Baso # 0.1 (0.0-0.2) K/uL Neutrophils % (Manual) 92 H (42-75) % Band Neutrophils % (0-2) % Lymphocytes % (Manual) 3 L (20-50) % Monocytes % (Manual) 5 (0-10) % Platelet Estimate Normal (NORMAL) Large Platelets Present Hypochromasia (manual) Slight Poikilocytosis (manual Slight Anisocytosis (manual) Slight Target Cells Slight pO2 (30-55) mm/Hg VBG pH (7.32-7.43) VBG pCO2 (40-60) mmHg VBG HCO3 mmol/L VBG Total CO2 (22-28) mmol/L VBG O2 Sat (Calc) (40-65) % VBG Base Excess (0.0-2.0) mmol/L VBG Potassium (3.6-5.2) mmol/L Glucose (65-105) mg/dL Lactate (0.7-2.1) mmol/L FiO2 % Crit Value Called To Crit Value Called By Crit Value Read Back Blood Gas Notified Time Sodium 137 (132-148) mmol/l Potassium 4.1 (3.6-5.0) MMOL/L Chloride 97 L (98-107) mmol/L Carbon Dioxide 22 (22-30) mmol/L Anion Gap 22 H (10-20) BUN 40 H (7-17) mg/dl Creatinine 8.1 H* (0.7-1.2) mg/dL Est GFR ( Amer) 6 Est GFR (Non-Af Amer) 5 POC Glucose (mg/dL) 109 161 H (65-110) mg/dL Random Glucose 151 H (65-105) mg/dL Calcium 8.3 L (8.4-10.2) mg/dL Iron (37-170) ug/dL TIBC (250-450) ug/dL % Saturation (20-55) % Ferritin > 1000.0 ng/mL Total Bilirubin 0.7 (0.2-1.3) mg/dl AST 54 H (14-36) U/L ALT 56 H D (9-52) U/L Alkaline Phosphatase 160 H (38-126) U/L Total Protein 7.0 (6.3-8.2) G/DL Albumin 2.9 L (3.5-5.0) g/dL Globulin 4.1 H (2.2-3.9) gm/dL Albumin/Globulin Ratio 0.7 L (1.0-2.1) Venous Blood Potassium (3.6-5.2) mmol/L 09/02/16 09/01/16 09/01/16 Range/Units 00:14 22:56 21:57 WBC (4.8-10.8) K/uL RBC (3.80-5.20) Mil/uL Hgb (12.0-16.0) g/dL Hct (34.0-47.0) % MCV (81.0-99.0) fl MCH (27.0-31.0) pg MCHC (33.0-37.0) g/dL RDW (11.5-14.5) % Plt Count (130-400) K/uL MPV (7.2-11.7) fl Neut % (Auto) (50.0-75.0) % Lymph % (Auto) (20.0-40.0) % [place] % (Auto) (0.0-10.0) % Eos % (Auto) (0.0-4.0) % Baso % (Auto) (0.0-2.0) % Neut # (1.8-7.0) K/uL Lymph # (1.0-4.3) K/uL [place] # (0.0-0.8) K/uL Eos # (0.0-0.7) K/uL Baso # (0.0-0.2) K/uL Neutrophils % (Manual) (42-75) % Band Neutrophils % (0-2) % Lymphocytes % (Manual) (20-50) % Monocytes % (Manual) (0-10) % Platelet Estimate (NORMAL) Large Platelets Hypochromasia (manual) Poikilocytosis (manual Anisocytosis (manual) Target Cells pO2 (30-55) mm/Hg VBG pH (7.32-7.43) VBG pCO2 (40-60) mmHg VBG HCO3 mmol/L VBG Total CO2 (22-28) mmol/L VBG O2 Sat (Calc) (40-65) % VBG Base Excess (0.0-2.0) mmol/L VBG Potassium (3.6-5.2) mmol/L Glucose (65-105) mg/dL Lactate (0.7-2.1) mmol/L FiO2 % Crit Value Called To Crit Value Called By Crit Value Read Back Blood Gas Notified Time Sodium (132-148) mmol/l Potassium (3.6-5.0) MMOL/L Chloride (98-107) mmol/L Carbon Dioxide (22-30) mmol/L Anion Gap (10-20) BUN (7-17) mg/dl Creatinine (0.7-1.2) mg/dL Est GFR ( Amer) Est GFR (Non-Af Amer) POC Glucose (mg/dL) 222 H 69 (65-110) mg/dL Random Glucose (65-105) mg/dL Calcium (8.4-10.2) mg/dL Iron 97 (37-170) ug/dL TIBC 134 L (250-450) ug/dL % Saturation 73 H (20-55) % Ferritin ng/mL Total Bilirubin (0.2-1.3) mg/dl AST (14-36) U/L ALT (9-52) U/L Alkaline Phosphatase (38-126) U/L Total Protein (6.3-8.2) G/DL Albumin (3.5-5.0) g/dL Globulin (2.2-3.9) gm/dL Albumin/Globulin Ratio (1.0-2.1) Venous Blood Potassium (3.6-5.2) mmol/L 09/01/16 09/01/16 09/01/16 Range/Units 20:15 20:14 20:05 WBC 16.9 H (4.8-10.8) K/uL RBC 3.16 L (3.80-5.20) Mil/uL Hgb 9.2 L (12.0-16.0) g/dL Hct 29.5 L (34.0-47.0) % MCV 93.4 (81.0-99.0) fl MCH 29.0 (27.0-31.0) pg MCHC 31.1 L (33.0-37.0) g/dL RDW 21.0 H (11.5-14.5) % Plt Count 164 (130-400) K/uL MPV 10.7 (7.2-11.7) fl Neut % (Auto) 90.3 H (50.0-75.0) % Lymph % (Auto) 2.3 L (20.0-40.0) % [place] % (Auto) 6.5 (0.0-10.0) % Eos % (Auto) 0.5 (0.0-4.0) % Baso % (Auto) 0.4 (0.0-2.0) % Neut # 15.3 H (1.8-7.0) K/uL Lymph # 0.4 L (1.0-4.3) K/uL [place] # 1.1 H (0.0-0.8) K/uL Eos # 0.1 (0.0-0.7) K/uL Baso # 0.1 (0.0-0.2) K/uL Neutrophils % (Manual) 89 H (42-75) % Band Neutrophils % 2 (0-2) % Lymphocytes % (Manual) 2 L (20-50) % Monocytes % (Manual) 7 (0-10) % Platelet Estimate Normal (NORMAL) Large Platelets Hypochromasia (manual) Slight Poikilocytosis (manual Anisocytosis (manual) Moderate Target Cells Slight pO2 35 (30-55) mm/Hg VBG pH 7.34 (7.32-7.43) VBG pCO2 46 (40-60) mmHg VBG HCO3 23.0 mmol/L VBG Total CO2 26.2 (22-28) mmol/L VBG O2 Sat (Calc) 67.7 H (40-65) % VBG Base Excess -1.3 L (0.0-2.0) mmol/L VBG Potassium 3.5 L (3.6-5.2) mmol/L Glucose 12 L* D (65-105) mg/dL Lactate 1.5 (0.7-2.1) mmol/L FiO2 28.0 % Crit Value Called To Susan monique rn Crit Value Called By 333 Crit Value Read Back Y Blood Gas Notified Time 2004 Sodium 133.0 140 (132-148) mmol/l Potassium 3.7 (3.6-5.0) MMOL/L Chloride 100.0 97 L (98-107) mmol/L Carbon Dioxide 25 (22-30) mmol/L Anion Gap 22 H (10-20) BUN 38 H (7-17) mg/dl Creatinine 7.8 H* (0.7-1.2) mg/dL Est GFR ( Amer) 7 Est GFR (Non-Af Amer) 6 POC Glucose (mg/dL) < 20 L* (65-110) mg/dL Random Glucose < 20 L* D (65-105) mg/dL Calcium 8.7 (8.4-10.2) mg/dL Iron (37-170) ug/dL TIBC (250-450) ug/dL % Saturation (20-55) % Ferritin ng/mL Total Bilirubin (0.2-1.3) mg/dl AST (14-36) U/L ALT (9-52) U/L Alkaline Phosphatase (38-126) U/L Total Protein (6.3-8.2) G/DL Albumin (3.5-5.0) g/dL Globulin (2.2-3.9) gm/dL Albumin/Globulin Ratio (1.0-2.1) Venous Blood Potassium 3.5 L (3.6-5.2) mmol/L Laboratory Results - last 24 hr 09/01/16 09/01/16 09/01/16 20:05 20:14 20:15 WBC 16.9 H RBC 3.16 L Hgb 9.2 L Hct 29.5 L MCV 93.4 MCH 29.0 MCHC 31.1 L RDW 21.0 H Plt Count 164 MPV 10.7 Neut % (Auto) 90.3 H Lymph % (Auto) 2.3 L [place] % (Auto) 6.5 Eos % (Auto) 0.5 Baso % (Auto) 0.4 Neut # 15.3 H Lymph # 0.4 L [place] # 1.1 H Eos # 0.1 Baso # 0.1 Neutrophils % (Manual) 89 H Band Neutrophils % 2 Lymphocytes % (Manual) 2 L Monocytes % (Manual) 7 Platelet Estimate Normal Large Platelets Hypochromasia (manual) Slight Poikilocytosis (manual Anisocytosis (manual) Moderate Target Cells Slight pO2 35 VBG pH 7.34 VBG pCO2 46 VBG HCO3 23.0 VBG Total CO2 26.2 VBG O2 Sat (Calc) 67.7 H VBG Base Excess -1.3 L VBG Potassium 3.5 L Glucose 12 L* D Lactate 1.5 FiO2 28.0 Crit Value Called To Susan monique rn Crit Value Called By 333 Crit Value Read Back Y Blood Gas Notified Time 2004 Sodium 140 133.0 Potassium 3.7 Chloride 97 L 100.0 Carbon Dioxide 25 Anion Gap 22 H BUN 38 H Creatinine 7.8 H* Est GFR ( Amer) 7 Est GFR (Non-Af Amer) 6 POC Glucose (mg/dL) < 20 L* Random Glucose < 20 L* D Calcium 8.7 Iron TIBC % Saturation Ferritin Total Bilirubin AST ALT Alkaline Phosphatase Total Protein Albumin Globulin Albumin/Globulin Ratio Venous Blood Potassium 3.5 L 09/01/16 09/01/16 09/02/16 21:57 22:56 00:14 WBC RBC Hgb Hct MCV MCH MCHC RDW Plt Count MPV Neut % (Auto) Lymph % (Auto) [place] % (Auto) Eos % (Auto) Baso % (Auto) Neut # Lymph # [place] # Eos # Baso # Neutrophils % (Manual) Band Neutrophils % Lymphocytes % (Manual) Monocytes % (Manual) Platelet Estimate Large Platelets Hypochromasia (manual) Poikilocytosis (manual Anisocytosis (manual) Target Cells pO2 VBG pH VBG pCO2 VBG HCO3 VBG Total CO2 VBG O2 Sat (Calc) VBG Base Excess VBG Potassium Glucose Lactate FiO2 Crit Value Called To Crit Value Called By Crit Value Read Back Blood Gas Notified Time Sodium Potassium Chloride Carbon Dioxide Anion Gap BUN Creatinine Est GFR ( Amer) Est GFR (Non-Af Amer) POC Glucose (mg/dL) 69 222 H Random Glucose Calcium Iron 97 TIBC 134 L % Saturation 73 H Ferritin Total Bilirubin AST ALT Alkaline Phosphatase Total Protein Albumin Globulin Albumin/Globulin Ratio Venous Blood Potassium 09/02/16 09/02/16 09/02/16 04:20 04:55 11:29 WBC 17.4 H RBC 3.04 L Hgb 8.8 L Hct 28.3 L MCV 93.3 MCH 29.1 MCHC 31.2 L RDW 21.0 H Plt Count 171 MPV 10.8 Neut % (Auto) 90.6 H Lymph % (Auto) 3.3 L [place] % (Auto) 5.3 Eos % (Auto) 0.5 Baso % (Auto) 0.3 Neut # 15.8 H Lymph # 0.6 L [place] # 0.9 H Eos # 0.1 Baso # 0.1 Neutrophils % (Manual) 92 H Band Neutrophils % Lymphocytes % (Manual) 3 L Monocytes % (Manual) 5 Platelet Estimate Normal Large Platelets Present Hypochromasia (manual) Slight Poikilocytosis (manual Slight Anisocytosis (manual) Slight Target Cells Slight pO2 VBG pH VBG pCO2 VBG HCO3 VBG Total CO2 VBG O2 Sat (Calc) VBG Base Excess VBG Potassium Glucose Lactate FiO2 Crit Value Called To Crit Value Called By Crit Value Read Back Blood Gas Notified Time Sodium 137 Potassium 4.1 Chloride 97 L Carbon Dioxide 22 Anion Gap 22 H BUN 40 H Creatinine 8.1 H* Est GFR ( Amer) 6 Est GFR (Non-Af Amer) 5 POC Glucose (mg/dL) 161 H 109 Random Glucose 151 H Calcium 8.3 L Iron TIBC % Saturation Ferritin > 1000.0 Total Bilirubin 0.7 AST 54 H ALT 56 H D Alkaline Phosphatase 160 H Total Protein 7.0 Albumin 2.9 L Globulin 4.1 H Albumin/Globulin Ratio 0.7 L Venous Blood Potassium Critical Care Progress Note - Nutrition Nutrition: Nutrition Category Date Time Status Renal Diet [DIET] Diets 08/30/16 Dinner Active Attending/Attestation - Attestation I have personally seen and examined this patient.: Yes I have fully participated in the care of the patient.: Yes I have reviewed all pertinent clinical information: Yes Notes (Text): 09/02/16 13:45 I have seen and examined the patient. Medical records, lab studies, and imaging were reviewed by me and a management plan was formulated on multidisciplinary rounds with resident Dr. Rees. I agree with their above documented assessment and plan. Patient appears clinically improved, still dependent on pressor. stopped dobutamine today and pressure has started to normalize. We'll obtain MRI once patient's pressure is completely stable, to rule out osteomyelitis which will affect the duration of her antibiotic treatment. Critical Care Time 35 minutes. Multi-disciplinary rounds were performed with house staff, nursing, speech therapy, respiratory therapy, pharmacy and nutrition with integrated input from the primary team/attending and other consulting services. The documented time is cumulative and includes review of patient data/exams/labs/chart review and examination of the patient on rounds and throughout the day; time is exclusive of any procedures or teaching time.
[2016-09-02] MEDS: Insulin Lispro (humaLOG) 100 Units/ml Inj SC SCH (11:57)
[2016-09-02] MEDS ORDERED: Dextrose 50% SYRINGE Inj (50 ml) ONE (14:48)
[2016-09-02] MEDS ORDERED: Dextrose 50% SYRINGE Inj (50 ml) IVP ONE (15:06)
[2016-09-02] MEDS: Epoetin Alfa 20000 UNIT/ML Inj IV SCH (15:28)
--- NOTE | 2016-09-02 15:35 | CP.PCM.PN ---
Subjective - Date & Time of Evaluation Date of Evaluation: 09/02/16 Time of Evaluation: 15:24 - Subjective Subjective: Problem: Infected right foot - probable osteomyelitis. Could not have MRI while on iv dobutamine. That has been stopped by Dr. Shepard. A brief drop in BP was followed by normalization. She is on 4 IV antibiotics: Zosyn, Zyvox, amikacin, and meropenem. Dr. Brian Pastrana will be evaluating the foot/leg and making recommendations. Problem: Diarrhea x4 during the night, once this am. However, patient was on Senna and docusate. C diff toxicology ordered. Will hold on treating until we have a lab confirmation or diarrhea recrs. Problem: Uncontrolled DM. Glucose fell to 12 last night will severe unresponsiveness and arms jerking - required 2 amps of D50 IV. A short while ago she seemed confused and could not follow commands. Glucose was found to be 39. After 1 amp of IV D50 glucose chris to 84 and she returned to normal mentation. Dr. Ambrose was made aware and will adust insulin dosing. I will order Nepro tid to sustain glucose levels since she is eating poorly. Problem: S/P SIRS - She is clearly better but some seizure activity was noted. Dr. Maguire started her on Topamax. Problem: ESRD - on hemodialysis via R subclavian Permacath - we have no other good sites left for vascular access (see history & physical). Dr. Guadarrama is managing HD. Problem: Anemia/ hypercoagulable state. Dr. Andrew Shepard's note appreciated. Dr. Guadarrama advised us to give 1 unit of rbcs during HD today. Patient is on Eliquis and aspirin because she cannot receive heparin. We will need Dr. Evita Shepard's guidance during any surgical interventions. Problem: RLL ? infiltrate, occasional cough, oxygen sat. is ok on nasal oxygen. Dr. Flores will be seeing patient in pulmonary consultation. Objective - Vital Signs/Intake and Output Vital Signs (last 24 hours): Temp Pulse Resp BP Pulse Ox 97.6 F 107 H 29 H 106/44 L 100 09/02/16 11:53 09/02/16 14:00 09/02/16 14:00 09/02/16 14:00 09/02/16 14:00 Intake and Output: 09/02/16 09/02/16 06:59 18:59 Intake Total 400 990 Balance 400 990 - Medications Medications: Current Medications Acetaminophen (Tylenol 325mg Tab) 650 mg PO Q4 PRN PRN Reason: Fever >100.4 F Last Admin: 08/28/16 15:23 Dose: 650 mg Acetaminophen (Tylenol 325mg Tab) 650 mg PO Q4 PRN PRN Reason: Pain, moderate (4-7) Last Admin: 09/02/16 06:01 Dose: 650 mg Albuterol/Ipratropium (Duoneb 3 Mg/0.5 Mg (3 Ml) Ud) 3 ml INH RQ4 PRN PRN Reason: Shortness of Breath Last Admin: 09/02/16 07:29 Dose: 3 ml Apixaban (Eliquis) 5 mg PO BID [facility] PRN Reason: Protocol Last Admin: 09/02/16 08:45 Dose: 5 mg Aspirin (Ecotrin) 81 mg PO DAILY [facility] Last Admin: 09/02/16 08:44 Dose: 81 mg Atorvastatin Calcium (Lipitor) 40 mg PO DAILY [facility] Last Admin: 09/02/16 08:48 Dose: 40 mg Cinacalcet (Sensipar) 30 mg PO DAILY [facility] Last Admin: 09/02/16 08:53 Dose: 30 mg Collagenase (Santyl) 1 applic TOP DAILY [facility] Last Admin: 09/02/16 08:50 Dose: 1 applic Docusate Sodium (Colace) 200 mg PO BID [facility] Last Admin: 09/02/16 08:43 Dose: Not Given Epoetin Tha (Procrit) 20,000 unit IV MWF [facility] Guaifenesin/Dextromethorphan (Robitussin Dm) 10 ml PO Q4 PRN PRN Reason: Cough Last Admin: 09/01/16 12:04 Dose: 10 ml Hydrocortisone (Anusol-Hc) 1 applic MA BID [facility] Last Admin: 09/02/16 10:03 Dose: 1 applic Piperacillin Sod/Tazobactam (Sod 2.25 gm/ Sodium Chloride) 100 mls @ 100 mls/ hr IVPB Q12 [facility] Last Admin: 09/02/16 08:53 Dose: 100 mls/hr Linezolid (Zyvox 600mg/300ml D5w) 300 mls @ 300 mls/hr IVPB Q12 [facility] Last Admin: 09/02/16 08:54 Dose: 300 mls/hr Meropenem 500 mg/ Sodium (Chloride) 100 mls @ 100 mls/hr IVPB DAILY [facility] Last Admin: 09/02/16 08:49 Dose: 100 mls/hr Sodium Chloride (Sodium Chloride 0.9%) 250 mls @ 999 mls/hr IV .Q16M [facility] Last Admin: 08/30/16 05:36 Dose: 999 mls/hr Amikacin Sulfate 250 mg/ (Sodium Chloride) 251 mls @ 250 mls/hr IVPB MWF [facility] Last Admin: 09/02/16 08:41 Dose: 250 mls/hr Insulin Detemir (Levemir) 14 units SC DAILY [facility] Insulin Detemir (Levemir) 30 units SC HS [facility] Insulin Human Lispro (Humalog) 12 units SC AC [facility] Lidocaine (Lidoderm) 1 ea TD DAILY [facility] Last Admin: 09/02/16 08:47 Dose: 1 ea Nystatin (Nystop Topical Powder) 1 applic TOP TID [facility] Last Admin: 09/02/16 11:59 Dose: 1 applic Ondansetron HCl (Zofran Inj) 4 mg IVP Q6 PRN PRN Reason: Nausea/Vomiting Last Admin: 09/02/16 12:11 Dose: 4 mg Pantoprazole Sodium (Protonix Inj) 40 mg IVP DAILY [facility] Last Admin: 09/02/16 08:49 Dose: 40 mg Sevelamer HCl (Renagel) 1,600 mg PO TID [facility] Last Admin: 09/02/16 12:00 Dose: 1,600 mg Topiramate (Topamax) 50 mg PO BID [facility] Last Admin: 09/02/16 08:53 Dose: 50 mg Vitamin B Complex/Vit C/Folic Acid (Nephro-Ajay) 1 tab PO DAILY [facility] Last Admin: 09/02/16 08:49 Dose: 1 tab - Labs Labs: 09/02/16 04:20 09/02/16 04:20 PT 16.5 SECONDS (9.6-11.2) H 08/28/16 16:11 INR 1.59 (0.92-1.08) H 08/28/16 16:11 APTT 38.7 SECONDS (23.3-32.5) H 08/28/16 16:11 - Constitutional Appears: Other (Confusion resolved with iv glucose administration, but overall in moderate distress - ill appearing.) - Head Exam Head Exam: NORMAL INSPECTION - Eye Exam Eye Exam: Normal appearance - ENT Exam ENT Exam: Mucous Membranes Moist - Neck Exam Neck Exam: Normal Inspection Additional comments: R subclavian permacath intact - Respiratory Exam Respiratory Exam: Decreased Breath Sounds Additional comments: Poor inspiration at bases with crackles - Cardiovascular Exam Cardiovascular Exam: REGULAR RHYTHM, +S1, +S2 - GI/Abdominal Exam GI & Abdominal Exam: Soft Additional comments: no tenderness - Extremities Exam Additional comments: R upper arm PICC line functioning well. R foot in boot, less calf tenderness (previous cellulitis, not DVTP) - Back Exam Back Exam: NORMAL INSPECTION - Skin Additional comments: Excoriations beneath breasts (Nystatin powder started) Assessment and Plan (1) SIRS (systemic inflammatory response syndrome) Assessment & Plan: SEE SUBJECTIVE Status: Acute (2) Ulcer of right heel Status: Acute (3) DM type 2 (diabetes mellitus, type 2) Assessment & Plan: SEE SUBJECTIVE Status: Chronic (4) Coagulopathy Assessment & Plan: SEE SUBJECTIVE Status: Chronic (5) ESRD (end stage renal disease) on dialysis Assessment & Plan: SEE SUBJECTIVE Status: Chronic (6) Peripheral arterial occlusive disease Assessment & Plan: SEE SUBJECTIVE Status: Acute
--- NOTE | 2016-09-02 16:10 | PN ---
DATE: 09/02/2016 ROOM: ICU, 433 This is a 46-year-old female with recent uncontrolled type 2 insulin-requiring diabetes, now being fo llowed closely in the ICU because of recent gram-negative bacteremia with underlying right leg cellul itis and a neuropathic nonhealing right heel ulcer and is now being followed closely for metabolic ma nagement. Her oral intake also has been very poor and suboptimal over the last 24 hours with superve vineet symptomatic hypoglycemic episodes and associated neuroglycopenic and hyperadrenergic manifestati ons of the same. She has received dextrose bolus injections as noted and review of the latest glucos e levels today have ranged from 161-109 and down to 39 and 84 mg/dL. Her latest chemistry shows a BU N of 40, sodium 137, potassium 4.1, chloride 97, CO2 of 22, glucose 151, and creatinine 8.1. So, at this time, we will modify her basal insulin regimen and lower the Humalog to 12 units subQ t.i .d. before meals as ordered to start today. We will also lower the Levemir to 14 units subQ at bedti me daily to start tonight. We will continue the low-dose correction scale using Humalog insulin as g iven. We will titrate incrementally as indicated to optimize metabolic control. We will titrate inc rementally as indicated as her oral intake improves accordingly. We will follow. Irene Ambrose MD cc: [phone] TT: 09/02/2016 16:10:27 Confirmation # [id number] Dictation # [id number]
[2016-09-02] MEDS ORDERED: Insulin Lispro (humaLOG) 100 Units/ml Inj SC SCH (16:30)
--- NOTE | 2016-09-02 16:34 | CP.PCM.PN ---
Subjective - Date & Time of Evaluation Date of Evaluation: 09/02/16 Time of Evaluation: 16:22 - Subjective Subjective: I D NOTE patient is alert,afebrile denies abdominal pain today wbc continues to increase despite broad antibiotic coverage persistent infection likely. awaiting MRI of lower extremity had diarrhea ,C.diff ordered to see in regard to possible BKA to see in regard to RLL pneumonia No change in coverage Objective - Vital Signs/Intake and Output Vital Signs (last 24 hours): Temp Pulse Resp BP Pulse Ox 97.6 F 107 H 29 H 106/44 L 100 09/02/16 11:53 09/02/16 14:00 09/02/16 14:00 09/02/16 14:00 09/02/16 14:00 Intake and Output: 09/02/16 09/02/16 06:59 18:59 Intake Total 400 990 Balance 400 990 - Medications Medications: Current Medications Acetaminophen (Tylenol 325mg Tab) 650 mg PO Q4 PRN PRN Reason: Fever >100.4 F Last Admin: 08/28/16 15:23 Dose: 650 mg Acetaminophen (Tylenol 325mg Tab) 650 mg PO Q4 PRN PRN Reason: Pain, moderate (4-7) Last Admin: 09/02/16 06:01 Dose: 650 mg Albuterol/Ipratropium (Duoneb 3 Mg/0.5 Mg (3 Ml) Ud) 3 ml INH RQ4 PRN PRN Reason: Shortness of Breath Last Admin: 09/02/16 15:35 Dose: 3 ml Apixaban (Eliquis) 5 mg PO BID [facility] PRN Reason: Protocol Last Admin: 09/02/16 08:45 Dose: 5 mg Aspirin (Ecotrin) 81 mg PO DAILY [facility] Last Admin: 09/02/16 08:44 Dose: 81 mg Atorvastatin Calcium (Lipitor) 40 mg PO DAILY [facility] Last Admin: 09/02/16 08:48 Dose: 40 mg Cinacalcet (Sensipar) 30 mg PO DAILY [facility] Last Admin: 09/02/16 08:53 Dose: 30 mg Collagenase (Santyl) 1 applic TOP DAILY [facility] Last Admin: 09/02/16 08:50 Dose: 1 applic Docusate Sodium (Colace) 200 mg PO BID [facility] Last Admin: 09/02/16 08:43 Dose: Not Given Epoetin Tha (Procrit) 20,000 unit IV [facility] Last Admin: 09/02/16 15:28 Dose: 20,000 unit Guaifenesin/Dextromethorphan (Robitussin Dm) 10 ml PO Q4 PRN PRN Reason: Cough Last Admin: 09/01/16 12:04 Dose: 10 ml Hydrocortisone (Anusol-Hc) 1 applic FL BID [facility] Last Admin: 09/02/16 10:03 Dose: 1 applic Piperacillin Sod/Tazobactam (Sod 2.25 gm/ Sodium Chloride) 100 mls @ 100 mls/ hr IVPB Q12 [facility] Last Admin: 09/02/16 08:53 Dose: 100 mls/hr Linezolid (Zyvox 600mg/300ml D5w) 300 mls @ 300 mls/hr IVPB Q12 [facility] Last Admin: 09/02/16 08:54 Dose: 300 mls/hr Meropenem 500 mg/ Sodium (Chloride) 100 mls @ 100 mls/hr IVPB DAILY [facility] Last Admin: 09/02/16 08:49 Dose: 100 mls/hr Sodium Chloride (Sodium Chloride 0.9%) 250 mls @ 999 mls/hr IV .Q16M [facility] Last Admin: 08/30/16 05:36 Dose: 999 mls/hr Amikacin Sulfate 250 mg/ (Sodium Chloride) 251 mls @ 250 mls/hr IVPB [facility] Last Admin: 09/02/16 08:41 Dose: 250 mls/hr Insulin Detemir (Levemir) 14 units SC HS [facility] Insulin Human Lispro (Humalog) 12 units SC AC [facility] Lidocaine (Lidoderm) 1 ea TD DAILY [facility] Last Admin: 09/02/16 08:47 Dose: 1 ea Nystatin (Nystop Topical Powder) 1 applic TOP TID [facility] Last Admin: 09/02/16 11:59 Dose: 1 applic Ondansetron HCl (Zofran Inj) 4 mg IVP Q6 PRN PRN Reason: Nausea/Vomiting Last Admin: 09/02/16 12:11 Dose: 4 mg Pantoprazole Sodium (Protonix Inj) 40 mg IVP DAILY [facility] Last Admin: 09/02/16 08:49 Dose: 40 mg Sevelamer HCl (Renagel) 1,600 mg PO TID [facility] Last Admin: 09/02/16 12:00 Dose: 1,600 mg Topiramate (Topamax) 50 mg PO BID [facility] Last Admin: 09/02/16 08:53 Dose: 50 mg Vitamin B Complex/Vit C/Folic Acid (Nephro-Ajay) 1 tab PO DAILY [facility] Last Admin: 09/02/16 08:49 Dose: 1 tab - Labs Labs: 09/02/16 04:20 09/02/16 04:20 PT 16.5 SECONDS (9.6-11.2) H 08/28/16 16:11 INR 1.59 (0.92-1.08) H 08/28/16 16:11 APTT 38.7 SECONDS (23.3-32.5) H 08/28/16 16:11
--- NOTE | 2016-09-02 16:58 | CP.PCM.CON ---
<GarethTabatha - Last Filed: 09/02/16 16:55> History of Present Illness - History of Present Illness History of Present Illness: GENERAL SURGERY CONSULT NOTE- Dr. Pastrana 46 yo female patient monet estephanie pierreed at bedside concerning possible right LE osteomyelitis. Pt has mild right leg this morning Denies recent n/v/sob/cp. 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 Denies any other pedal complaints at this time. PMHx: HTN, ESRD (on dialysis), coagulopathy, DM, charcot root (right) PVD ALL: heparin, beta-blockers Meds: see [facility] Surg Hx: left BKA, finger amputations x 10 Soc. Hx: denies ETOH, denies smoking, denies illicit drug use Past Patient History - Past Medical History & Family History Past Medical History?: Yes - Past Social History Smoking Status: Never Smoked - CARDIAC Hx Hypercholesterolemia: Yes Hx Hypertension: Yes Hx Peripheral Vascular Disease: Yes - PULMONARY Hx Respiratory Disorders: No - NEUROLOGICAL Hx Neurological Disorder: No - HEENT Hx HEENT Problems: Yes Hx Cataracts: Yes - RENAL Hx Chronic Kidney Disease: Yes Hx Dialysis: Yes Type of Dialysis Access: Right subclavian Permacath. Date of Last Dialysis Treatment: 08/26/16 - ENDOCRINE/METABOLIC Hx Endocrine Disorders: Yes Hx Diabetes Mellitus Type 2: Yes - HEMATOLOGICAL/ONCOLOGICAL Hx Blood Disorders: Yes (THROMBOPHILIA - Heparin Ab's, Protein C & S deficiencies.) Hx AIDS: No Hx Anemia: Yes Hx Blood Transfusions: Yes Hx Blood Transfusion Reaction: No Hx Hepatitis B: No Hx Hepatitis C: No Hx Human Immunodeficiency Virus (HIV): No - INTEGUMENTARY Hx Dermatological Problems: No - MUSCULOSKELETAL/RHEUMATOLOGICAL Hx Musculoskeletal Disorders: Yes (Charcot joint right ankle) Hx Back Pain: Yes Hx Falls: No Hx Osteomyelitis: Yes (R middle finger due to paronychial infection 2016) - GASTROINTESTINAL Hx Gastrointestinal Disorders: No Other/Comment: hx of anal fissure - GENITOURINARY/GYNECOLOGICAL Hx Genitourinary Disorders: No Other/Comment: Menorrhagia - PSYCHIATRIC Hx Substance Use: No - SURGICAL HISTORY Hx Surgeries: Yes (see Hx and PE) Hx Amputation: Yes Hx Arteriovenous Shunt: Yes (No more sites available. All previously failed.) Hx Vascular Access Device: Yes (R subclavian Permacath) Other/Comment: INSERTION OF DIALYSIS CATH;CATARACT-BOTH EYES;LEFT BELOW KNEE AMPUTATION;2ND TOE RIGHT FOOT AMPUTATION; RIGHT ANKLE SURGERY - ANESTHESIA Hx Anesthesia: Yes Hx Anesthesia Reactions: No Hx Malignant Hyperthermia: No Has any member of the family had a problem w/ anesthesia?: No Meds Allergies/Adverse Reactions: Allergies Allergy/AdvReac Type Severity Reaction Status Date / Time heparin Allergy Severe ANAPHYLAXIS Verified 08/27/16 14:01 Beta-Blockers Allergy ANAPHYLAXIS Verified 08/27/16 14:01 (Beta-Adrenergic Bloc - Medications Medications: Current Medications Acetaminophen (Tylenol 325mg Tab) 650 mg PO Q4 PRN PRN Reason: Fever >100.4 F Last Admin: 08/28/16 15:23 Dose: 650 mg Acetaminophen (Tylenol 325mg Tab) 650 mg PO Q4 PRN PRN Reason: Pain, moderate (4-7) Last Admin: 09/02/16 06:01 Dose: 650 mg Albuterol/Ipratropium (Duoneb 3 Mg/0.5 Mg (3 Ml) Ud) 3 ml INH RQ4 PRN PRN Reason: Shortness of Breath Last Admin: 09/02/16 15:35 Dose: 3 ml Apixaban (Eliquis) 5 mg PO BID [facility] PRN Reason: Protocol Last Admin: 09/02/16 08:45 Dose: 5 mg Aspirin (Ecotrin) 81 mg PO DAILY [facility] Last Admin: 09/02/16 08:44 Dose: 81 mg Atorvastatin Calcium (Lipitor) 40 mg PO DAILY [facility] Last Admin: 09/02/16 08:48 Dose: 40 mg Cinacalcet (Sensipar) 30 mg PO DAILY [facility] Last Admin: 09/02/16 08:53 Dose: 30 mg Collagenase (Santyl) 1 applic TOP DAILY [facility] Last Admin: 09/02/16 08:50 Dose: 1 applic Docusate Sodium (Colace) 200 mg PO BID [facility] Last Admin: 09/02/16 08:43 Dose: Not Given Epoetin Tha (Procrit) 20,000 unit IV MWF [facility] Last Admin: 09/02/16 15:28 Dose: 20,000 unit Guaifenesin/Dextromethorphan (Robitussin Dm) 10 ml PO Q4 PRN PRN Reason: Cough Last Admin: 09/01/16 12:04 Dose: 10 ml Hydrocortisone (Anusol-Hc) 1 applic [place] BID [facility] Last Admin: 09/02/16 10:03 Dose: 1 applic Piperacillin Sod/Tazobactam (Sod 2.25 gm/ Sodium Chloride) 100 mls @ 100 mls/ hr IVPB Q12 [facility] Last Admin: 09/02/16 08:53 Dose: 100 mls/hr Linezolid (Zyvox 600mg/300ml D5w) 300 mls @ 300 mls/hr IVPB Q12 [facility] Last Admin: 09/02/16 08:54 Dose: 300 mls/hr Meropenem 500 mg/ Sodium (Chloride) 100 mls @ 100 mls/hr IVPB DAILY [facility] Last Admin: 09/02/16 08:49 Dose: 100 mls/hr Sodium Chloride (Sodium Chloride 0.9%) 250 mls @ 999 mls/hr IV .Q16M [facility] Last Admin: 08/30/16 05:36 Dose: 999 mls/hr Amikacin Sulfate 250 mg/ (Sodium Chloride) 251 mls @ 250 mls/hr IVPB MWF [facility] Last Admin: 09/02/16 08:41 Dose: 250 mls/hr Insulin Detemir (Levemir) 14 units SC HS [facility] Insulin Human Lispro (Humalog) 12 units SC AC [facility] Lidocaine (Lidoderm) 1 ea TD DAILY [facility] Last Admin: 09/02/16 08:47 Dose: 1 ea Nystatin (Nystop Topical Powder) 1 applic TOP TID [facility] Last Admin: 09/02/16 11:59 Dose: 1 applic Ondansetron HCl (Zofran Inj) 4 mg IVP Q6 PRN PRN Reason: Nausea/Vomiting Last Admin: 09/02/16 12:11 Dose: 4 mg Pantoprazole Sodium (Protonix Inj) 40 mg IVP DAILY [facility] Last Admin: 09/02/16 08:49 Dose: 40 mg Sevelamer HCl (Renagel) 1,600 mg PO TID [facility] Last Admin: 09/02/16 12:00 Dose: 1,600 mg Topiramate (Topamax) 50 mg PO BID [facility] Last Admin: 09/02/16 08:53 Dose: 50 mg Vitamin B Complex/Vit C/Folic Acid (Nephro-Ajay) 1 tab PO DAILY [facility] Last Admin: 09/02/16 08:49 Dose: 1 tab Physical Exam - Constitutional Appears: Toxic, No Acute Distress, Chronically Ill - Head Exam Head Exam: ATRAUMATIC, NORMOCEPHALIC Additional comments: Alopecia - Eye Exam Eye Exam: EOMI, PERRL - Respiratory Exam Respiratory Exam: NORMAL BREATHING PATTERN. absent: Chest Wall Tenderness, Decreased Breath Sounds - GI/Abdominal Exam GI & Abdominal Exam: Soft. absent: Firm, Guarding - Extremities Exam Extremities exam: Negative for: calf tenderness, pedal edema Additional comments: Right severe varus deformity of ankle. Slight tenderness noted to deep palpation of calf/posterior leg. Right heel necrotic echar, absent drainage, erythema of other acute signs of infection. Results - Vital Signs Recent Vital Signs: Last Vital Signs Temp 97.6 F 09/02/16 11:53 Pulse 107 H 09/02/16 14:00 Resp 29 H 09/02/16 14:00 BP 106/44 L 09/02/16 14:00 Pulse Ox 100 09/02/16 14:00 - Labs Result Diagrams: 09/02/16 04:20 09/02/16 04:20 Labs: Laboratory Results - last 24 hr 09/01/16 09/01/16 09/01/16 20:05 20:14 20:15 WBC 16.9 H RBC 3.16 L Hgb 9.2 L Hct 29.5 L MCV 93.4 MCH 29.0 MCHC 31.1 L RDW 21.0 H Plt Count 164 MPV 10.7 Neut % (Auto) 90.3 H Lymph % (Auto) 2.3 L [place] % (Auto) 6.5 Eos % (Auto) 0.5 Baso % (Auto) 0.4 Neut # 15.3 H Lymph # 0.4 L [place] # 1.1 H Eos # 0.1 Baso # 0.1 Neutrophils % (Manual) 89 H Band Neutrophils % 2 Lymphocytes % (Manual) 2 L Monocytes % (Manual) 7 Platelet Estimate Normal Large Platelets Hypochromasia (manual) Slight Poikilocytosis (manual Anisocytosis (manual) Moderate Target Cells Slight pO2 35 VBG pH 7.34 VBG pCO2 46 VBG HCO3 23.0 VBG Total CO2 26.2 VBG O2 Sat (Calc) 67.7 H VBG Base Excess -1.3 L VBG Potassium 3.5 L Glucose 12 L* D Lactate 1.5 FiO2 28.0 Crit Value Called To Susan monique rn Crit Value Called By 333 Crit Value Read Back Y Blood Gas Notified Time 2004 Sodium 140 133.0 Potassium 3.7 Chloride 97 L 100.0 Carbon Dioxide 25 Anion Gap 22 H BUN 38 H Creatinine 7.8 H* Est GFR ( Amer) 7 Est GFR (Non-Af Amer) 6 POC Glucose (mg/dL) < 20 L* Random Glucose < 20 L* D Calcium 8.7 Iron TIBC % Saturation Ferritin Total Bilirubin AST ALT Alkaline Phosphatase Total Protein Albumin Globulin Albumin/Globulin Ratio Venous Blood Potassium 3.5 L Blood Type Antibody Screen Crossmatch BBK History Checked 09/01/16 09/01/16 09/02/16 21:57 22:56 00:14 WBC RBC Hgb Hct MCV MCH MCHC RDW Plt Count MPV Neut % (Auto) Lymph % (Auto) [place] % (Auto) Eos % (Auto) Baso % (Auto) Neut # Lymph # [place] # Eos # Baso # Neutrophils % (Manual) Band Neutrophils % Lymphocytes % (Manual) Monocytes % (Manual) Platelet Estimate Large Platelets Hypochromasia (manual) Poikilocytosis (manual Anisocytosis (manual) Target Cells pO2 VBG pH VBG pCO2 VBG HCO3 VBG Total CO2 VBG O2 Sat (Calc) VBG Base Excess VBG Potassium Glucose Lactate FiO2 Crit Value Called To Crit Value Called By Crit Value Read Back Blood Gas Notified Time Sodium Potassium Chloride Carbon Dioxide Anion Gap BUN Creatinine Est GFR ( Amer) Est GFR (Non-Af Amer) POC Glucose (mg/dL) 69 222 H Random Glucose Calcium Iron 97 TIBC 134 L % Saturation 73 H Ferritin Total Bilirubin AST ALT Alkaline Phosphatase Total Protein Albumin Globulin Albumin/Globulin Ratio Venous Blood Potassium Blood Type Antibody Screen Crossmatch BBK History Checked 09/02/16 09/02/16 09/02/16 04:20 04:55 11:29 WBC 17.4 H RBC 3.04 L Hgb 8.8 L Hct 28.3 L MCV 93.3 MCH 29.1 MCHC 31.2 L RDW 21.0 H Plt Count 171 MPV 10.8 Neut % (Auto) 90.6 H Lymph % (Auto) 3.3 L [place] % (Auto) 5.3 Eos % (Auto) 0.5 Baso % (Auto) 0.3 Neut # 15.8 H Lymph # 0.6 L [place] # 0.9 H Eos # 0.1 Baso # 0.1 Neutrophils % (Manual) 92 H Band Neutrophils % Lymphocytes % (Manual) 3 L Monocytes % (Manual) 5 Platelet Estimate Normal Large Platelets Present Hypochromasia (manual) Slight Poikilocytosis (manual Slight Anisocytosis (manual) Slight Target Cells Slight pO2 VBG pH VBG pCO2 VBG HCO3 VBG Total CO2 VBG O2 Sat (Calc) VBG Base Excess VBG Potassium Glucose Lactate FiO2 Crit Value Called To Crit Value Called By Crit Value Read Back Blood Gas Notified Time Sodium 137 Potassium 4.1 Chloride 97 L Carbon Dioxide 22 Anion Gap 22 H BUN 40 H Creatinine 8.1 H* Est GFR ( Amer) 6 Est GFR (Non-Af Amer) 5 POC Glucose (mg/dL) 161 H 109 Random Glucose 151 H Calcium 8.3 L Iron TIBC % Saturation Ferritin > 1000.0 Total Bilirubin 0.7 AST 54 H ALT 56 H D Alkaline Phosphatase 160 H Total Protein 7.0 Albumin 2.9 L Globulin 4.1 H Albumin/Globulin Ratio 0.7 L Venous Blood Potassium Blood Type Antibody Screen Crossmatch BBK History Checked 09/02/16 09/02/16 09/02/16 14:52 15:00 15:01 WBC RBC Hgb Hct MCV MCH MCHC RDW Plt Count MPV Neut % (Auto) Lymph % (Auto) [place] % (Auto) Eos % (Auto) Baso % (Auto) Neut # Lymph # [place] # Eos # Baso # Neutrophils % (Manual) Band Neutrophils % Lymphocytes % (Manual) Monocytes % (Manual) Platelet Estimate Large Platelets Hypochromasia (manual) Poikilocytosis (manual Anisocytosis (manual) Target Cells pO2 VBG pH VBG pCO2 VBG HCO3 VBG Total CO2 VBG O2 Sat (Calc) VBG Base Excess VBG Potassium Glucose Lactate FiO2 Crit Value Called To Crit Value Called By Crit Value Read Back Blood Gas Notified Time Sodium Potassium Chloride Carbon Dioxide Anion Gap BUN Creatinine Est GFR ( Amer) Est GFR (Non-Af Amer) POC Glucose (mg/dL) 39 L 84 Random Glucose Calcium Iron TIBC % Saturation Ferritin Total Bilirubin AST ALT Alkaline Phosphatase Total Protein Albumin Globulin Albumin/Globulin Ratio Venous Blood Potassium Blood Type AB POSITIVE Antibody Screen Negative Crossmatch See Detail BBK History Checked Patient has bt Assessment & Plan - Assessment and Plan (Free Text) Assessment: 46 yo female patient w/ pmhx of HTN, ESRD (on dialysis), coagulopathy, DM, charcot right foot PVD 1) sepsis 2) right heel ulceration, Charcot Arhtropathy and potential Calcaneal OM. Plan: Pt S&E. Labs reviewed and evaluated. Afebrile. Tachycardic, Hyptonesive. WBC= 17.4. Undergoing dialysis in evaluation. -Dr. Pastrana to see pt in AM. - Right leg MRI pending, could not e done today due to IV dobutamine - Discussed with Podiatry team - f/u labs, and MRI D/W Dr. Pastrana. - Date & Time Date: 09/02/16 Time: 17:05 <Enmanuel Villarreal - Last Filed: 09/03/16 12:36> History of Present Illness - History of Present Illness History of Present Illness: Patient was seen and examined at the bedside. Agree with resident's note above Meds - Medications Medications: Current Medications Acetaminophen (Tylenol 325mg Tab) 650 mg PO Q4 PRN PRN Reason: Fever >100.4 F Last Admin: 08/28/16 15:23 Dose: 650 mg Acetaminophen (Tylenol 325mg Tab) 650 mg PO Q4 PRN PRN Reason: Pain, moderate (4-7) Last Admin: 09/03/16 03:33 Dose: 650 mg Acetylcysteine (Mucomyst 10% 4ml) 2 ml IH RBID [facility] Albuterol Sulfate (Albuterol 0.083% Inhal Barbie (2.5 Mg/3 Ml) Ud) 2.5 mg INH RBID [facility] Albuterol/Ipratropium (Duoneb 3 Mg/0.5 Mg (3 Ml) Ud) 3 ml INH RQ4 PRN PRN Reason: Shortness of Breath Last Admin: 09/02/16 21:32 Dose: 3 ml Apixaban (Eliquis) 5 mg PO BID [facility] PRN Reason: Protocol Last Admin: 09/03/16 09:00 Dose: 5 mg Aspirin (Ecotrin) 81 mg PO DAILY [facility] Last Admin: 09/03/16 08:59 Dose: 81 mg Atorvastatin Calcium (Lipitor) 40 mg PO DAILY [facility] Last Admin: 09/03/16 09:02 Dose: 40 mg Cinacalcet (Sensipar) 30 mg PO DAILY [facility] Last Admin: 09/03/16 09:04 Dose: 30 mg Collagenase (Santyl) 1 applic TOP DAILY [facility] Last Admin: 09/03/16 09:04 Dose: 1 applic Docusate Sodium (Colace) 200 mg PO BID [facility] Last Admin: 09/03/16 08:57 Dose: Not Given [facility]poetin [facility]a ([facility]) [facility] Last Admin: 09/02/16 15:28 Dose: 20,000 unit Guaifenesin/Dextromethorphan (Robitussin Dm) 10 ml PO Q4 PRN PRN Reason: Cough Last Admin: 09/02/16 22:09 Dose: 10 ml Hydrocortisone (Anusol-Hc) 1 applic [place] BID [facility] Last Admin: 09/03/16 09:22 Dose: 1 applic Piperacillin Sod/Tazobactam (Sod 2.25 gm/ Sodium Chloride) 100 mls @ 100 mls/ hr IVPB Q12 [facility] Last Admin: 09/03/16 09:05 Dose: 100 mls/hr Linezolid (Zyvox 600mg/300ml D5w) 300 mls @ 300 mls/hr IVPB Q12 [facility] Last Admin: 09/02/16 20:40 Dose: 300 mls/hr Meropenem 500 mg/ Sodium (Chloride) 100 mls @ 100 mls/hr IVPB DAILY [facility] Last Admin: 09/03/16 09:02 Dose: 100 mls/hr Sodium Chloride (Sodium Chloride 0.9%) 250 mls @ 999 mls/hr IV .Q16M [facility] Last Admin: 08/30/16 05:36 Dose: 999 mls/hr Amikacin Sulfate 250 mg/ (Sodium Chloride) 251 mls @ 250 mls/hr IVPB MWF [facility] Last Admin: 09/02/16 08:41 Dose: 250 mls/hr Insulin Detemir (Levemir) [address] [facility] Last Admin: 09/02/16 21:59 Dose: Not Given Insulin Human Lispro (Humalog) 6 units SC AC [facility] Lidocaine (Lidoderm) 1 ea TD DAILY [facility] Last Admin: 09/03/16 09:01 Dose: Not Given Nystatin (Nystop Topical Powder) 1 applic TOP TID [facility] Last Admin: 09/02/16 20:38 Dose: 1 applic Ondansetron HCl (Zofran Inj) 4 mg IVP Q6 PRN PRN Reason: Nausea/Vomiting Last Admin: 09/02/16 12:11 Dose: 4 mg Pantoprazole Sodium (Protonix Inj) 40 mg IVP DAILY [facility] Last Admin: 09/03/16 09:03 Dose: 40 mg Sevelamer HCl (Renagel) 1,600 mg PO TID [facility] Last Admin: 09/03/16 09:03 Dose: 1,600 mg Topiramate (Topamax) 50 mg PO BID [facility] Last Admin: 09/03/16 09:04 Dose: 50 mg Vitamin B Complex/Vit C/Folic Acid (Nephro-Ajay) 1 tab PO DAILY [facility] Last Admin: 09/03/16 09:03 Dose: 1 tab Results - Vital Signs Recent Vital Signs: Last Vital Signs Temp 98.4 F 09/03/16 11:55 Pulse 113 H 09/03/16 11:55 Resp 24 09/03/16 11:55 BP 124/93 H 09/03/16 11:55 Pulse Ox 97 09/03/16 11:55 - Labs Result Diagrams: 09/03/16 04:15 09/03/16 04:15 Labs: Laboratory Results - last 24 hr 09/02/16 09/02/16 09/02/16 14:52 15:00 15:01 WBC RBC Hgb Hct MCV MCH MCHC RDW Plt Count Sodium Potassium Chloride Carbon Dioxide Anion Gap BUN Creatinine Est GFR ( Amer) Est GFR (Non-Af Amer) POC Glucose (mg/dL) 39 L 84 Random Glucose Calcium Total Bilirubin AST ALT Alkaline Phosphatase Total Protein Albumin Globulin Albumin/Globulin Ratio C. difficile Ag & Toxin Blood Type AB POSITIVE Antibody Screen Negative Crossmatch See Detail BBK History Checked Patient has bt 09/02/16 09/02/16 09/02/16 21:41 22:20 23:12 WBC RBC Hgb Hct MCV MCH MCHC RDW Plt Count Sodium Potassium Chloride Carbon Dioxide Anion Gap BUN Creatinine Est GFR ( Amer) Est GFR (Non-Af Amer) POC Glucose (mg/dL) 67 100 Random Glucose Calcium Total Bilirubin AST ALT Alkaline Phosphatase Total Protein Albumin Globulin Albumin/Globulin Ratio C. difficile Ag & Toxin Negative Blood Type Antibody Screen Crossmatch BBK History Checked 09/03/16 09/03/16 09/03/16 04:15 04:15 04:26 WBC 15.2 H RBC 3.13 L Hgb 9.2 L Hct 28.8 L MCV 92.0 MCH 29.4 MCHC 31.9 L RDW 20.8 H Plt Count 201 Sodium 137 Potassium 3.6 Chloride 95 L Carbon Dioxide 27 Anion Gap 19 BUN 19 H Creatinine 4.8 H Est GFR ( Amer) 12 Est GFR (Non-Af Amer) 10 POC Glucose (mg/dL) 68 Random Glucose 70 Calcium 8.1 L Total Bilirubin 0.7 AST 48 H ALT 44 Alkaline Phosphatase 161 H Total Protein 7.2 Albumin 3.0 L Globulin 4.2 H Albumin/Globulin Ratio 0.7 L C. difficile Ag & Toxin Blood Type Antibody Screen Crossmatch BBK History Checked 09/03/16 05:05 WBC RBC Hgb Hct MCV MCH MCHC RDW Plt Count Sodium Potassium Chloride Carbon Dioxide Anion Gap BUN Creatinine Est GFR ( Amer) Est GFR (Non-Af Amer) POC Glucose (mg/dL) 56 L Random Glucose Calcium Total Bilirubin AST ALT Alkaline Phosphatase Total Protein Albumin Globulin Albumin/Globulin Ratio C. difficile Ag & Toxin Blood Type Antibody Screen Crossmatch BBK History Checked Assessment & Plan - Assessment and Plan (Free Text) Plan: - MRI of the leg - Continue antibiotics as per ID - Will follow
[2016-09-02] MEDS ORDERED: Insulin Detemir 100 Units/ml Inj SC SCH (22:00)
[2016-09-02] MEDS: guaiFENesin DM 200 mg-20 mg/10 ml UD PO PRN (22:09)
--- NOTE | 2016-09-03 00:16 | CP.PCM.PN ---
Subjective - Date & Time of Evaluation Date of Evaluation: 09/02/16 Time of Evaluation: 21:00 - Subjective Subjective: Patient is more stable, she has no spells of syncope and / or nesr Syncope, Blood Sugar is better controlled. no Fever. Fully awake, alert oriented. Objective - Vital Signs/Intake and Output Vital Signs (last 24 hours): Temp Pulse Resp BP Pulse Ox 97.4 F L 121 H 17 131/85 100 09/02/16 20:00 09/02/16 22:00 09/02/16 22:00 09/02/16 22:00 09/02/16 22:00 Intake and Output: 09/02/16 09/03/16 18:59 06:59 Intake Total 1230 650 Balance 1230 650 - Medications Medications: Current Medications Acetaminophen (Tylenol 325mg Tab) 650 mg PO Q4 PRN PRN Reason: Fever >100.4 F Last Admin: 08/28/16 15:23 Dose: 650 mg Acetaminophen (Tylenol 325mg Tab) 650 mg PO Q4 PRN PRN Reason: Pain, moderate (4-7) Last Admin: 09/02/16 06:01 Dose: 650 mg Albuterol/Ipratropium (Duoneb 3 Mg/0.5 Mg (3 Ml) Ud) 3 ml INH RQ4 PRN PRN Reason: Shortness of Breath Last Admin: 09/02/16 21:32 Dose: 3 ml Apixaban (Eliquis) 5 mg PO BID [facility] PRN Reason: Protocol Last Admin: 09/02/16 20:34 Dose: 5 mg Aspirin (Ecotrin) 81 mg PO DAILY [facility] Last Admin: 09/02/16 08:44 Dose: 81 mg Atorvastatin Calcium (Lipitor) 40 mg PO DAILY [facility] Last Admin: 09/02/16 08:48 Dose: 40 mg Cinacalcet (Sensipar) 30 mg PO DAILY [facility] Last Admin: 09/02/16 08:53 Dose: 30 mg Collagenase (Santyl) 1 applic TOP DAILY [facility] Last Admin: 09/02/16 08:50 Dose: 1 applic Docusate Sodium (Colace) 200 mg PO BID [facility] Last Admin: 09/02/16 17:44 Dose: Not Given Epoetin Tha (Procrit) 20,000 unit IV MWF [facility] Last Admin: 09/02/16 15:28 Dose: 20,000 unit Guaifenesin/Dextromethorphan (Robitussin Dm) 10 ml PO Q4 PRN PRN Reason: Cough Last Admin: 09/02/16 22:09 Dose: 10 ml Hydrocortisone (Anusol-Hc) 1 applic [place] BID [facility] Last Admin: 09/02/16 20:38 Dose: 1 applic Piperacillin Sod/Tazobactam (Sod 2.25 gm/ Sodium Chloride) 100 mls @ 100 mls/ hr IVPB Q12 [facility] Last Admin: 09/02/16 20:39 Dose: 100 mls/hr Linezolid (Zyvox 600mg/300ml D5w) 300 mls @ 300 mls/hr IVPB Q12 [facility] Last Admin: 09/02/16 20:40 Dose: 300 mls/hr Meropenem 500 mg/ Sodium (Chloride) 100 mls @ 100 mls/hr IVPB DAILY [facility] Last Admin: 09/02/16 08:49 Dose: 100 mls/hr Sodium Chloride (Sodium Chloride 0.9%) 250 mls @ 999 mls/hr IV .Q16M [facility] Last Admin: 08/30/16 05:36 Dose: 999 mls/hr Amikacin Sulfate 250 mg/ (Sodium Chloride) 251 mls @ 250 mls/hr IVPB MWF [facility] Last Admin: 09/02/16 08:41 Dose: 250 mls/hr Insulin Detemir (Levemir) 14 units SC HS [facility] Last Admin: 09/02/16 21:59 Dose: Not Given Insulin Human Lispro (Humalog) 6 units SC AC [facility] Lidocaine (Lidoderm) 1 ea TD DAILY [facility] Last Admin: 09/02/16 08:47 Dose: 1 ea Nystatin (Nystop Topical Powder) 1 applic TOP TID [facility] Last Admin: 09/02/16 20:38 Dose: 1 applic Ondansetron HCl (Zofran Inj) 4 mg IVP Q6 PRN PRN Reason: Nausea/Vomiting Last Admin: 09/02/16 12:11 Dose: 4 mg Pantoprazole Sodium (Protonix Inj) 40 mg IVP DAILY [facility] Last Admin: 09/02/16 08:49 Dose: 40 mg Sevelamer HCl (Renagel) 1,600 mg PO TID [facility] Last Admin: 09/02/16 20:38 Dose: 1,600 mg Topiramate (Topamax) 50 mg PO BID [facility] Last Admin: 09/02/16 20:34 Dose: 50 mg Vitamin B Complex/Vit C/Folic Acid (Nephro-Ajay) 1 tab PO DAILY [facility] Last Admin: 09/02/16 08:49 Dose: 1 tab - Labs Labs: 09/02/16 04:20 09/02/16 04:20 PT 16.5 SECONDS (9.6-11.2) H 08/28/16 16:11 INR 1.59 (0.92-1.08) H 08/28/16 16:11 APTT 38.7 SECONDS (23.3-32.5) H 08/28/16 16:11 Assessment and Plan (1) Back pain Status: Acute (2) Bacteremia due to Gram-negative bacteria Status: Acute (3) Cellulitis of leg Status: Acute (4) Diabetes Status: Acute (5) Diabetes mellitus type 2 with peripheral artery disease Status: Acute (6) ESRD (end stage renal disease) Status: Acute (7) Hyperlipidemia Status: Acute (8) PVD (peripheral vascular disease) Assessment & Plan: with multiple amputations. Status: Acute
[2016-09-03] MEDS ORDERED: Insulin Lispro (humaLOG) 100 Units/ml Inj SC SCH (07:30)
--- NOTE | 2016-09-03 08:18 | CP.PCM.PN ---
<Tabatha Servin - Last Filed: 09/03/16 11:23> Subjective - Date & Time of Evaluation Date of Evaluation: 09/03/16 Time of Evaluation: 08:37 - Subjective Subjective: 46 yo female patient seen and evalauted at bedside concerning possible right LE osteomyelitis. Pt has continued mild right leg pain this morning, with additional general pain of entire body. Pt reports feeling of feverish. Denies recent n/v/sob/cp. Denies any other complaints at this time. Objective - Vital Signs/Intake and Output Vital Signs (last 24 hours): Temp Pulse Resp BP Pulse Ox 98.5 F 108 H 22 128/40 L 100 09/03/16 08:00 09/03/16 08:00 09/03/16 08:00 09/03/16 08:00 09/03/16 08:00 Intake and Output: 09/03/16 09/03/16 06:59 18:59 Intake Total 683 Balance 683 - Medications Medications: Current Medications Acetaminophen (Tylenol 325mg Tab) 650 mg PO Q4 PRN PRN Reason: Fever >100.4 F Last Admin: 08/28/16 15:23 Dose: 650 mg Acetaminophen (Tylenol 325mg Tab) 650 mg PO Q4 PRN PRN Reason: Pain, moderate (4-7) Last Admin: 09/03/16 03:33 Dose: 650 mg Albuterol/Ipratropium (Duoneb 3 Mg/0.5 Mg (3 Ml) Ud) 3 ml INH RQ4 PRN PRN Reason: Shortness of Breath Last Admin: 09/02/16 21:32 Dose: 3 ml Apixaban (Eliquis) 5 mg PO BID [facility] PRN Reason: Protocol Last Admin: 09/02/16 20:34 Dose: 5 mg Aspirin (Ecotrin) 81 mg PO DAILY [facility] Last Admin: 09/02/16 08:44 Dose: 81 mg Atorvastatin Calcium (Lipitor) 40 mg PO DAILY [facility] Last Admin: 09/02/16 08:48 Dose: 40 mg Cinacalcet (Sensipar) 30 mg PO DAILY [facility] Last Admin: 09/02/16 08:53 Dose: 30 mg Collagenase (Santyl) 1 applic TOP DAILY [facility] Last Admin: 09/02/16 08:50 Dose: 1 applic Docusate Sodium (Colace) 200 mg PO BID [facility] Last Admin: 09/02/16 17:44 Dose: Not Given Epoetin Tha (Procrit) 20,000 unit IV MWF [facility] Last Admin: 09/02/16 15:28 Dose: 20,000 unit Guaifenesin/Dextromethorphan (Robitussin Dm) 10 ml PO Q4 PRN PRN Reason: Cough Last Admin: 09/02/16 22:09 Dose: 10 ml Hydrocortisone (Anusol-Hc) 1 applic [place] BID [facility] Last Admin: 09/02/16 20:38 Dose: 1 applic Piperacillin Sod/Tazobactam (Sod 2.25 gm/ Sodium Chloride) 100 mls @ 100 mls/ hr IVPB Q12 [facility] Last Admin: 09/02/16 20:39 Dose: 100 mls/hr Linezolid (Zyvox 600mg/300ml D5w) 300 mls @ 300 mls/hr IVPB Q12 [facility] Last Admin: 09/02/16 20:40 Dose: 300 mls/hr Meropenem 500 mg/ Sodium (Chloride) 100 mls @ 100 mls/hr IVPB DAILY [facility] Last Admin: 09/02/16 08:49 Dose: 100 mls/hr Sodium Chloride (Sodium Chloride 0.9%) 250 mls @ 999 mls/hr IV .Q16M [facility] Last Admin: 08/30/16 05:36 Dose: 999 mls/hr Amikacin Sulfate 250 mg/ (Sodium Chloride) 251 mls @ 250 mls/hr IVPB MWF [facility] Last Admin: 09/02/16 08:41 Dose: 250 mls/hr Insulin Detemir (Levemir) 14 units SC HS [facility] Last Admin: 09/02/16 21:59 Dose: Not Given Insulin Human Lispro (Humalog) 6 units SC AC [facility] Lidocaine (Lidoderm) 1 ea TD DAILY [facility] Last Admin: 09/02/16 08:47 Dose: 1 ea Nystatin (Nystop Topical Powder) 1 applic TOP TID [facility] Last Admin: 09/02/16 20:38 Dose: 1 applic Ondansetron HCl (Zofran Inj) 4 mg IVP Q6 PRN PRN Reason: Nausea/Vomiting Last Admin: 09/02/16 12:11 Dose: 4 mg Pantoprazole Sodium (Protonix Inj) 40 mg IVP DAILY [facility] Last Admin: 09/02/16 08:49 Dose: 40 mg Sevelamer HCl (Renagel) 1,600 mg PO TID [facility] Last Admin: 09/02/16 20:38 Dose: 1,600 mg Topiramate (Topamax) 50 mg PO BID [facility] Last Admin: 09/02/16 20:34 Dose: 50 mg Vitamin B Complex/Vit C/Folic Acid (Nephro-Ajay) 1 tab PO DAILY [facility] Last Admin: 09/02/16 08:49 Dose: 1 tab - Labs Labs: 09/02/16 04:20 09/02/16 04:20 PT 16.5 SECONDS (9.6-11.2) H 08/28/16 16:11 INR 1.59 (0.92-1.08) H 08/28/16 16:11 APTT 38.7 SECONDS (23.3-32.5) H 08/28/16 16:11 - Constitutional Appears: No Acute Distress, Chronically Ill - Head Exam Head Exam: ATRAUMATIC, NORMOCEPHALIC Additional comments: Alopecia - Respiratory Exam Respiratory Exam: Decreased Breath Sounds, NORMAL BREATHING PATTERN. absent: Chest Wall Tenderness - GI/Abdominal Exam GI & Abdominal Exam: Soft. absent: Guarding, Rigid, Tenderness - Extremities Exam Additional comments: Right severe varus deformity of ankle. Slight tenderness noted to deep palpation of calf/posterior leg. Right heel necrotic echar, absent drainage, erythema of other acute signs of infection. - Neurological Exam Neurological Exam: Alert, Awake, Oriented x3 - Psychiatric Exam Psychiatric exam: Normal Affect, Normal Mood Assessment and Plan - Assessment and Plan (Free Text) Assessment: 46 yo female patient w/ pmhx of HTN, ESRD (on dialysis), coagulopathy, DM, charcot right foot PVD 1) sepsis 2) right heel ulceration, Charcot Arhtropathy and potential Calcaneal OM. Plan: Pt S&E. Labs reviewed and evaluated. -Dr. Pastrana to see pt in AM. - Right leg MRI pending - f/u labs, and MRI <Enmanuel Villarreal - Last Filed: 09/03/16 12:37> Objective - Vital Signs/Intake and Output Vital Signs (last 24 hours): Temp Pulse Resp BP Pulse Ox 98.4 F 113 H 24 124/93 H 97 09/03/16 11:55 09/03/16 11:55 09/03/16 11:55 09/03/16 11:55 09/03/16 11:55 Intake and Output: 09/03/16 09/03/16 06:59 18:59 Intake Total 683 Balance 683 - Medications Medications: Current Medications Acetaminophen (Tylenol 325mg Tab) 650 mg PO Q4 PRN PRN Reason: Fever >100.4 F Last Admin: 08/28/16 15:23 Dose: 650 mg Acetaminophen (Tylenol 325mg Tab) 650 mg PO Q4 PRN PRN Reason: Pain, moderate (4-7) Last Admin: 09/03/16 03:33 Dose: 650 mg Acetylcysteine (Mucomyst 10% 4ml) 2 ml IH RBID JASPER Albuterol Sulfate (Albuterol 0.083% Inhal Barbie (2.5 Mg/3 Ml) Ud) 2.5 mg INH RBID JASPER Albuterol/Ipratropium (Duoneb 3 Mg/0.5 Mg (3 Ml) Ud) 3 ml INH RQ4 PRN PRN Reason: Shortness of Breath Last Admin: 09/02/16 21:32 Dose: 3 ml Apixaban (Eliquis) 5 mg PO BID [facility] PRN Reason: Protocol Last Admin: 09/03/16 09:00 Dose: 5 mg Aspirin (Ecotrin) 81 mg PO DAILY [facility] Last Admin: 09/03/16 08:59 Dose: 81 mg Atorvastatin Calcium (Lipitor) 40 mg PO DAILY [facility] Last Admin: 09/03/16 09:02 Dose: 40 mg Cinacalcet (Sensipar) 30 mg PO DAILY [facility] Last Admin: 09/03/16 09:04 Dose: 30 mg Collagenase (Santyl) 1 applic TOP DAILY [facility] Last Admin: 09/03/16 09:04 Dose: 1 applic Docusate Sodium (Colace) 200 mg PO BID [facility] Last Admin: 09/03/16 08:57 Dose: Not Given Epoetin Tha (Procrit) 20,000 unit IV MWF [facility] Last Admin: 09/02/16 15:28 Dose: 20,000 unit Guaifenesin/Dextromethorphan (Robitussin Dm) 10 ml PO Q4 PRN PRN Reason: Cough Last Admin: 09/02/16 22:09 Dose: 10 ml Hydrocortisone (Anusol-Hc) 1 applic UT BID [facility] Last Admin: 09/03/16 09:22 Dose: 1 applic Piperacillin Sod/Tazobactam (Sod 2.25 gm/ Sodium Chloride) 100 mls @ 100 mls/ hr IVPB Q12 [facility] Last Admin: 09/03/16 09:05 Dose: 100 mls/hr Linezolid (Zyvox 600mg/300ml D5w) 300 mls @ 300 mls/hr IVPB Q12 [facility] Last Admin: 09/02/16 20:40 Dose: 300 mls/hr Meropenem 500 mg/ Sodium (Chloride) 100 mls @ 100 mls/hr IVPB DAILY [facility] Last Admin: 09/03/16 09:02 Dose: 100 mls/hr Sodium Chloride (Sodium Chloride 0.9%) 250 mls @ 999 mls/hr IV .Q16M [facility] Last Admin: 08/30/16 05:36 Dose: 999 mls/hr Amikacin Sulfate 250 mg/ (Sodium Chloride) 251 mls @ 250 mls/hr IVPB MWF [facility] Last Admin: 09/02/16 08:41 Dose: 250 mls/hr Insulin Detemir (Levemir) 14 units SC HS [facility] Last Admin: 09/02/16 21:59 Dose: Not Given Insulin Human Lispro (Humalog) 6 units SC AC [facility] Lidocaine (Lidoderm) 1 ea TD DAILY [facility] Last Admin: 09/03/16 09:01 Dose: Not Given Nystatin (Nystop Topical Powder) 1 applic TOP TID [facility] Last Admin: 09/02/16 20:38 Dose: 1 applic Ondansetron HCl (Zofran Inj) 4 mg IVP Q6 PRN PRN Reason: Nausea/Vomiting Last Admin: 09/02/16 12:11 Dose: 4 mg Pantoprazole Sodium (Protonix Inj) 40 mg IVP DAILY [facility] Last Admin: 09/03/16 09:03 Dose: 40 mg Sevelamer HCl (Renagel) 1,600 mg PO TID [facility] Last Admin: 09/03/16 09:03 Dose: 1,600 mg Topiramate (Topamax) 50 mg PO BID [facility] Last Admin: 09/03/16 09:04 Dose: 50 mg Vitamin B Complex/Vit C/Folic Acid (Nephro-Ajay) 1 tab PO DAILY [facility] Last Admin: 09/03/16 09:03 Dose: 1 tab - Labs Labs: 09/03/16 04:15 09/03/16 04:15 PT 16.5 SECONDS (9.6-11.2) H 08/28/16 16:11 INR 1.59 (0.92-1.08) H 08/28/16 16:11 APTT 38.7 SECONDS (23.3-32.5) H 08/28/16 16:11
[2016-09-03] MEDS ORDERED: Sodium Chloride 3% for Inhalation 4 ML VIAL.NEB IH PRN (08:26)
[2016-09-03 08:29] LABS: ALB/GLOB RATIO 0.7 (1.0-2.1); BILIRUBIN,TOTAL 0.7 mg/dl (0.2-1.3); CALCIUM 8.1 mg/dL (8.4-10.2); POTASSIUM 3.6 MMOL/L (3.6-5.0); TOTAL PROTEIN 7.2 G/DL (6.3-8.2)
[2016-09-03 08:32] LABS: HEMATOCRIT 28.8 % (34.0-47.0); MEAN CORPUSCULAR HEMOGLOBIN 29.4 pg (27.0-31.0); MEAN CORPUSCULAR HGB CONC 31.9 g/dL (33.0-37.0); RED CELL DISTRIBUTION WIDTH 20.8 % (11.5-14.5); WHITE BLOOD COUNT 15.2 K/uL (4.8-10.8)
--- NOTE | 2016-09-03 08:35 | CP.PCM.CON ---
History of Present Illness - History of Present Illness History of Present Illness: This 46 year old diabetic female who suffers from DD-ESRD and PVD was admitted to hospital with cellulitis of the lower extremity through the emergency room. Pulmonary consultation was called because of cough and SOB with pulmonary infiltrates seen on CT chest. She did have some symptoms on admission and claims to feel somewhat improved now from a respiratory standpoint. She did have occasional sputum expectoration, but cannot say if there was any color or blood in the phlegm. She does recall one prior episode of pneumonia many years ago, but denies any other pulmonary illness. She never smoked, but was raised in a smoking home environment. She does not have any chest pain at the present time, but does have some mild SOB. She has been on multiple antibiotics under the direction of Infectious Disease. Past Patient History - Past Medical History & Family History Past Medical History?: Yes - Past Social History Smoking Status: Never Smoked Chewing Tobacco Use: No Cigar Use: No Alcohol: None Drugs: Denies - CARDIAC Hx Cardiac Disorders: Yes Hx Hypercholesterolemia: Yes Hx Hypertension: Yes Hx Peripheral Vascular Disease: Yes - PULMONARY Hx Respiratory Disorders: Yes Hx Pneumonia: Yes - NEUROLOGICAL Hx Neurological Disorder: No - HEENT Hx HEENT Problems: Yes Hx Cataracts: Yes - RENAL Hx Chronic Kidney Disease: Yes Hx Dialysis: Yes Type of Dialysis Access: Right subclavian Permacath. Date of Last Dialysis Treatment: 08/26/16 - ENDOCRINE/METABOLIC Hx Endocrine Disorders: Yes Hx Diabetes Mellitus Type 2: Yes - HEMATOLOGICAL/ONCOLOGICAL Hx Blood Disorders: Yes (THROMBOPHILIA - Heparin Ab's, Protein C & S deficiencies.) Hx Anemia: Yes Hx Blood Transfusions: Yes Hx Blood Transfusion Reaction: No Hx Hepatitis B: Yes (Ab positive) Hx Hepatitis C: No Hx Human Immunodeficiency Virus (HIV): No - INTEGUMENTARY Hx Dermatological Problems: No - MUSCULOSKELETAL/RHEUMATOLOGICAL Hx Musculoskeletal Disorders: Yes (Charcot joint right ankle) Hx Back Pain: Yes Hx Falls: No Hx Osteomyelitis: Yes (R middle finger due to paronychial infection 2016) - GASTROINTESTINAL Hx Gastrointestinal Disorders: Yes Other/Comment: hx of anal fissure - GENITOURINARY/GYNECOLOGICAL Hx Genitourinary Disorders: Yes Other/Comment: Menorrhagia - PSYCHIATRIC Hx Psychophysiologic Disorder: No Hx Substance Use: No - SURGICAL HISTORY Hx Surgeries: Yes Hx Amputation: Yes Hx Arteriovenous Shunt: Yes Hx Vascular Access Device: Yes (R subclavian Permacath) Other/Comment: INSERTION OF DIALYSIS CATH;CATARACT-BOTH EYES;LEFT BELOW KNEE AMPUTATION;2ND TOE RIGHT FOOT AMPUTATION; RIGHT ANKLE SURGERY - ANESTHESIA Hx Anesthesia: Yes Hx Anesthesia Reactions: No Hx Malignant Hyperthermia: No Has any member of the family had a problem w/ anesthesia?: No Meds Allergies/Adverse Reactions: Allergies Allergy/AdvReac Type Severity Reaction Status Date / Time heparin Allergy Severe ANAPHYLAXIS Verified 08/27/16 14:01 Beta-Blockers Allergy ANAPHYLAXIS Verified 08/27/16 14:01 (Beta-Adrenergic Bloc - Medications Medications: Current Medications Acetaminophen (Tylenol 325mg Tab) 650 mg PO Q4 PRN PRN Reason: Fever >100.4 F Last Admin: 08/28/16 15:23 Dose: 650 mg Acetaminophen (Tylenol 325mg Tab) 650 mg PO Q4 PRN PRN Reason: Pain, moderate (4-7) Last Admin: 09/03/16 03:33 Dose: 650 mg Acetylcysteine (Mucomyst 10% 4ml) 2 ml IH RBID JASPER Albuterol Sulfate (Albuterol 0.083% Inhal Barbie (2.5 Mg/3 Ml) Ud) 2.5 mg INH RBID JASPER Albuterol/Ipratropium (Duoneb 3 Mg/0.5 Mg (3 Ml) Ud) 3 ml INH RQ4 PRN PRN Reason: Shortness of Breath Last Admin: 09/02/16 21:32 Dose: 3 ml Apixaban (Eliquis) 5 mg PO BID [facility] PRN Reason: Protocol Last Admin: 09/02/16 20:34 Dose: 5 mg Aspirin (Ecotrin) 81 mg PO DAILY [facility] Last Admin: 09/02/16 08:44 Dose: 81 mg Atorvastatin Calcium (Lipitor) 40 mg PO DAILY [facility] Last Admin: 09/02/16 08:48 Dose: 40 mg Cinacalcet (Sensipar) 30 mg PO DAILY [facility] Last Admin: 09/02/16 08:53 Dose: 30 mg Collagenase (Santyl) 1 applic TOP DAILY [facility] Last Admin: 09/02/16 08:50 Dose: 1 applic Docusate Sodium (Colace) 200 mg PO BID [facility] Last Admin: 09/02/16 17:44 Dose: Not Given Epoetin Tha (Procrit) 20,000 unit IV MWF [facility] Last Admin: 09/02/16 15:28 Dose: 20,000 unit Guaifenesin/Dextromethorphan (Robitussin Dm) 10 ml PO Q4 PRN PRN Reason: Cough Last Admin: 09/02/16 22:09 Dose: 10 ml Hydrocortisone (Anusol-Hc) 1 applic [place] BID [facility] Last Admin: 09/02/16 20:38 Dose: 1 applic Piperacillin Sod/Tazobactam (Sod 2.25 gm/ Sodium Chloride) 100 mls @ 100 mls/ hr IVPB Q12 [facility] Last Admin: 09/02/16 20:39 Dose: 100 mls/hr Linezolid (Zyvox 600mg/300ml D5w) 300 mls @ 300 mls/hr IVPB Q12 [facility] Last Admin: 09/02/16 20:40 Dose: 300 mls/hr Meropenem 500 mg/ Sodium (Chloride) 100 mls @ 100 mls/hr IVPB DAILY [facility] Last Admin: 09/02/16 08:49 Dose: 100 mls/hr Sodium Chloride (Sodium Chloride 0.9%) 250 mls @ 999 mls/hr IV .Q16M [facility] Last Admin: 08/30/16 05:36 Dose: 999 mls/hr Amikacin Sulfate 250 mg/ (Sodium Chloride) 251 mls @ 250 mls/hr IVPB MWF [facility] Last Admin: 09/02/16 08:41 Dose: 250 mls/hr Insulin Detemir (Levemir) 14 units SC HS [facility] Last Admin: 09/02/16 21:59 Dose: Not Given Insulin Human Lispro (Humalog) 6 units SC AC [facility] Lidocaine (Lidoderm) 1 ea TD DAILY [facility] Last Admin: 09/02/16 08:47 Dose: 1 ea Nystatin (Nystop Topical Powder) 1 applic TOP TID [facility] Last Admin: 09/02/16 20:38 Dose: 1 applic Ondansetron HCl (Zofran Inj) 4 mg IVP Q6 PRN PRN Reason: Nausea/Vomiting Last Admin: 09/02/16 12:11 Dose: 4 mg Pantoprazole Sodium (Protonix Inj) 40 mg IVP DAILY [facility] Last Admin: 09/02/16 08:49 Dose: 40 mg Sevelamer HCl (Renagel) 1,600 mg PO TID [facility] Last Admin: 09/02/16 20:38 Dose: 1,600 mg Topiramate (Topamax) 50 mg PO BID [facility] Last Admin: 09/02/16 20:34 Dose: 50 mg Vitamin B Complex/Vit C/Folic Acid (Nephro-Ajay) 1 tab PO DAILY [facility] Last Admin: 09/02/16 08:49 Dose: 1 tab Physical Exam - Additional Findings Additional findings: Pleasant, obese female lying in bed in no acute distress. Pharynx mildly injected, White patches over the soft palate. Conjunctive pink and anicteric. Neck is supple and trachea midline. No carotid bruit. No palpable cervical or supraclavicular adenopathy. No dullness to palpation of the anterior chest wall. No subcut emphysema. Breath sounds are well heard bilaterally w/o wheezes or bronchial breath sounds. Few sonorous rhonchi are present in dependant areas of both lungs. Few posterior basal rales. No egophony. Heart sounds seem slightly distant, mildly tachycardic. Results - Vital Signs Recent Vital Signs: Last Vital Signs Temp 98.5 F 09/03/16 08:00 Pulse 108 H 09/03/16 08:00 Resp 22 09/03/16 08:00 BP 128/40 L 09/03/16 08:00 Pulse Ox 100 09/03/16 08:00 - Labs Result Diagrams: 09/02/16 04:20 09/03/16 04:15 Labs: Laboratory Results - last 24 hr 09/02/16 09/02/16 09/02/16 11:29 14:52 15:00 Sodium Potassium Chloride Carbon Dioxide Anion Gap BUN Creatinine Est GFR ( Amer) Est GFR (Non-Af Amer) POC Glucose (mg/dL) 109 39 L Random Glucose Calcium Total Bilirubin AST ALT Alkaline Phosphatase Total Protein Albumin Globulin Albumin/Globulin Ratio Blood Type AB POSITIVE Antibody Screen Negative Crossmatch See Detail BBK History Checked Patient has bt 09/02/16 09/02/16 09/02/16 15:01 21:41 23:12 Sodium Potassium Chloride Carbon Dioxide Anion Gap BUN Creatinine Est GFR ( Amer) Est GFR (Non-Af Amer) POC Glucose (mg/dL) 84 67 100 Random Glucose Calcium Total Bilirubin AST ALT Alkaline Phosphatase Total Protein Albumin Globulin Albumin/Globulin Ratio Blood Type Antibody Screen Crossmatch BBK History Checked 09/03/16 09/03/16 09/03/16 04:15 04:26 05:05 Sodium 137 Potassium 3.6 Chloride 95 L Carbon Dioxide 27 Anion Gap 19 BUN 19 H Creatinine 4.8 H Est GFR ( Amer) 12 Est GFR (Non-Af Amer) 10 POC Glucose (mg/dL) 68 56 L Random Glucose 70 Calcium 8.1 L Total Bilirubin 0.7 AST 48 H ALT 44 Alkaline Phosphatase 161 H Total Protein 7.2 Albumin 3.0 L Globulin 4.2 H Albumin/Globulin Ratio 0.7 L Blood Type Antibody Screen Crossmatch BBK History Checked Assessment & Plan - Assessment and Plan (Free Text) Assessment: Bilateral posterior basal pneumonia, likely of 'hypostatic' origin, must be considered as HCAP. Plan: Agree with current medical regimen. Have added aerosol with BD and mucolytic agent, sputum culture and CPT with flutter valve device. Thank you, - Date & Time Date: 09/03/16 Time: 08:32
[2016-09-03] MEDS: Linezolid 600 mg in D5W 300 ml 300 ML IVPB SCH ×2 (09:00→20:42)
[2016-09-03] MEDS: Lidocaine 5% Patch TD SCH (09:01)
[2016-09-03] MEDS: Meropenem 500 MG in Sodium Chloride 0.9% 100 ML IVPB SCH (09:02)
[2016-09-03] MEDS: Multivitamin Vitamin B Complex (Nephro-Vite) Tab PO SCH (09:03)
[2016-09-03] MEDS: Santyl Collagenase OINTMENT TOP SCH (09:04)
[2016-09-03] MEDS: Hydrocortisone 2.5% (Rectal) CREAM PR SCH ×2 (09:22→18:16)
[2016-09-03] MEDS ORDERED: Insulin Detemir 100 Units/ml Inj SC SCH (10:00)
--- NOTE | 2016-09-03 10:17 | CP.CCUPN ---
<Bri Groves - Last Filed: 09/03/16 12:48> CCU Subjective - Physician Review Subjective (Free Text): 09/03/16 7:30 46 year old female with PMHx of ESRD on HD (3 times a week) , HTN, DM type 2, Protein C/ Protein S deficiency ,Severe PVD, chronic disease anemia was admitted for RLE cellulites transfer to ICU for code sepsis. Patient was seen and examined at bedside this morning. Patient is alert, awake and answers all the questions this morning. Patient had dialysis on yesterday and received 1 PRBC on yesterday. Patient was pressor on yesterday due to hypotensive episodes however patient BP is stable this morning without pressor. Patient has afebrile , tachycardia with HR of 115 bpm, BP of 117/65 RR 25 and Sat O2 99 % on nasal cannula. Patient leukocytosis is improving and receiving amikacin, meropenem, zosyn and zyvox. Denies fever, SOB, chest pain, diarrhea, headache and dizziness. CCU Objective - Vital Signs / Intake & Output Vital Signs (Last 4 hours): Vital Signs Temp Pulse Resp BP Pulse Ox 09/03/16 08:00 98.5 F 108 H 22 128/40 L 100 Intake and Output (Last 8hrs): Intake & Output 09/02/16 09/03/16 09/03/16 22:59 06:59 14:59 Intake Total 430 373 Balance 430 373 Intake: IV 10 8 Intake, Piggyback 300 100 Oral 120 265 Other: # Bowel Movements 1 - Physical Exam Head: Positive for: Atraumatic, Normocephalic Pupils: Positive for: PERRL Pharnyx: Positive for: ERYTHEMA Neck: Positive for: Normal Range of Motion. Negative for: JVD Respiratory/Chest: Positive for: Other (Right SC dialysis catheter and PICC line on right arm). 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) Neurological: Positive for: Speech Normal, Other (Alert awake oriented x 3) Skin: Positive for: Warm, Normal Color Psychiatric: Positive for: Alert, Oriented x 3, Normal Insight, Normal Concentration - Medications Active Medications: Active Medications Generic Name Dose Route Start Last Admin Trade Name Freq PRN Reason Stop Dose Admin Acetaminophen 650 mg 08/28/16 00:09 08/28/16 15:23 Tylenol 325mg Tab PO 650 mg Q4 PRN Administration Fever >100.4 F Acetaminophen 650 mg 08/28/16 00:12 09/03/16 03:33 Tylenol 325mg Tab PO 650 mg Q4 PRN Administration Pain, moderate (4-7) Acetylcysteine 2 ml 09/03/16 20:00 Mucomyst 10% 4ml IH RBID JASPER Albuterol Sulfate 2.5 mg 09/03/16 20:00 Albuterol 0.083% Inhal Barbie (2.5 Mg/3 Ml) Ud INH RBID JASPER Albuterol/Ipratropium 3 ml 08/29/16 18:39 09/02/16 21:32 Duoneb 3 Mg/0.5 Mg (3 Ml) Ud INH 3 ml RQ4 PRN Administration Shortness of Breath Apixaban 5 mg 08/28/16 09:15 09/03/16 09:00 Eliquis PO 5 mg BID JASPER Administration Protocol Aspirin 81 mg 08/28/16 09:00 09/03/16 08:59 Ecotrin PO 81 mg DAILY JASPER Administration Atorvastatin Calcium 40 mg 08/28/16 09:00 09/03/16 09:02 Lipitor PO 40 mg DAILY JASPER Administration Cinacalcet 30 mg 08/28/16 11:15 09/03/16 09:04 Sensipar PO 30 mg DAILY JASPER Administration Collagenase 1 applic 08/28/16 09:00 09/03/16 09:04 Santyl TOP 1 applic DAILY JASPER Administration Docusate Sodium 200 mg 08/28/16 09:00 09/03/16 08:57 Colace PO Not Given BID JASPER Epoetin Tha 20,000 unit 09/02/16 09:00 09/02/16 15:28 Procrit IV 20,000 unit MWF JASPER Administration Guaifenesin/Dextromethorphan 10 ml 09/01/16 10:33 09/02/16 22:09 Robitussin Dm PO 10 ml Q4 PRN Administration Cough Hydrocortisone 1 applic 09/01/16 10:45 09/03/16 09:22 Anusol-Hc SC 1 applic BID JASPER Administration Piperacillin Sod/Tazobactam 100 mls @ 100 mls/hr 08/27/16 21:00 09/03/16 09: 05 Sod 2.25 gm/ Sodium Chloride IVPB 100 mls/hr Q12 JASPER Administration Linezolid 300 mls @ 300 mls/hr 08/27/16 21:00 09/02/16 20:40 Zyvox 600mg/300ml D5w IVPB 300 mls/hr Q12 JASPER Administration Meropenem 500 mg/ Sodium 100 mls @ 100 mls/hr 08/29/16 09:00 09/03/16 09:02 Chloride IVPB 100 mls/hr DAILY JASPER Administration Sodium Chloride 250 mls @ 999 mls/hr 08/29/16 23:30 08/30/16 05:36 Sodium Chloride 0.9% IV 999 mls/hr .Q16M JASPER Administration Amikacin Sulfate 250 mg/ 251 mls @ 250 mls/hr 09/02/16 09:00 09/02/16 08:41 Sodium Chloride IVPB 250 mls/hr MWF JASPER Administration Insulin Detemir 14 units 09/02/16 22:00 09/02/16 21:59 Levemir SC Not Given HS JASPER Insulin Human Lispro 6 units 09/03/16 07:30 Humalog SC AC JASPER Lidocaine 1 ea 08/29/16 13:30 09/03/16 09:01 Lidoderm TD Not Given DAILY JASPER Nystatin 1 applic 09/02/16 13:00 09/02/16 20:38 Nystop Topical Powder TOP 1 applic TID JASPER Administration Ondansetron HCl 4 mg 08/29/16 19:00 09/02/16 12:11 Zofran Inj IVP 4 mg Q6 PRN Administration Nausea/Vomiting Pantoprazole Sodium 40 mg 08/31/16 11:00 09/03/16 09:03 Protonix Inj IVP 40 mg DAILY JASPER Administration Sevelamer HCl 1,600 mg 08/28/16 11:11 09/03/16 09:03 Renagel PO 1,600 mg TID JASPER Administration Topiramate 50 mg 08/30/16 18:45 09/03/16 09:04 Topamax PO 50 mg BID JASPER Administration Vitamin B Complex/Vit C/Folic Acid 1 tab 08/28/16 09:00 09/03/16 09:03 Nephro-Ajay PO 1 tab DAILY JASPER Administration - Patient Studies Lab Studies: Microbiology Studies 08/31/16 09:23 Blood Culture - Preliminary Blood NO GROWTH AFTER 3 DAYS 08/28/16 16:11 Blood Culture - Final Blood-Thru Central Line NO GROWTH AFTER 5 DAYS Gram Stain - Final TEST NOT PERFORMED 08/29/16 10:51 Blood Culture - Preliminary Blood NO GROWTH AFTER 4 DAYS Lab Studies 09/03/16 09/03/16 09/03/16 Range/Units 05:05 04:26 04:15 WBC (4.8-10.8) K/uL RBC (3.80-5.20) Mil/uL Hgb (12.0-16.0) g/dL Hct (34.0-47.0) % MCV (81.0-99.0) fl MCH (27.0-31.0) pg MCHC (33.0-37.0) g/dL RDW (11.5-14.5) % Plt Count (130-400) K/uL Sodium 137 (132-148) mmol/l Potassium 3.6 (3.6-5.0) MMOL/L Chloride 95 L (98-107) mmol/L Carbon Dioxide 27 (22-30) mmol/L Anion Gap 19 (10-20) BUN 19 H (7-17) mg/dl Creatinine 4.8 H (0.7-1.2) mg/dL Est GFR ( Amer) 12 Est GFR (Non-Af Amer) 10 POC Glucose (mg/dL) 56 L 68 (65-110) mg/dL Random Glucose 70 (65-105) mg/dL Calcium 8.1 L (8.4-10.2) mg/dL Total Bilirubin 0.7 (0.2-1.3) mg/dl AST 48 H (14-36) U/L ALT 44 (9-52) U/L Alkaline Phosphatase 161 H (38-126) U/L Total Protein 7.2 (6.3-8.2) G/DL Albumin 3.0 L (3.5-5.0) g/dL Globulin 4.2 H (2.2-3.9) gm/dL Albumin/Globulin Ratio 0.7 L (1.0-2.1) C. difficile Ag & Toxin (NEGATIVE) Blood Type Antibody Screen Crossmatch BBK History Checked 09/03/16 09/02/16 09/02/16 Range/Units 04:15 23:12 22:20 WBC 15.2 H (4.8-10.8) K/uL RBC 3.13 L (3.80-5.20) Mil/uL Hgb 9.2 L (12.0-16.0) g/dL Hct 28.8 L (34.0-47.0) % MCV 92.0 (81.0-99.0) fl MCH 29.4 (27.0-31.0) pg MCHC 31.9 L (33.0-37.0) g/dL RDW 20.8 H (11.5-14.5) % Plt Count 201 (130-400) K/uL Sodium (132-148) mmol/l Potassium (3.6-5.0) MMOL/L Chloride (98-107) mmol/L Carbon Dioxide (22-30) mmol/L Anion Gap (10-20) BUN (7-17) mg/dl Creatinine (0.7-1.2) mg/dL Est GFR ( Amer) Est GFR (Non-Af Amer) POC Glucose (mg/dL) 100 (65-110) mg/dL Random Glucose (65-105) mg/dL Calcium (8.4-10.2) mg/dL Total Bilirubin (0.2-1.3) mg/dl AST (14-36) U/L ALT (9-52) U/L Alkaline Phosphatase (38-126) U/L Total Protein (6.3-8.2) G/DL Albumin (3.5-5.0) g/dL Globulin (2.2-3.9) gm/dL Albumin/Globulin Ratio (1.0-2.1) C. difficile Ag & Toxin Negative (NEGATIVE) Blood Type Antibody Screen Crossmatch BBK History Checked 09/02/16 09/02/16 09/02/16 Range/Units 21:41 15:01 15:00 WBC (4.8-10.8) K/uL RBC (3.80-5.20) Mil/uL Hgb (12.0-16.0) g/dL Hct (34.0-47.0) % MCV (81.0-99.0) fl MCH (27.0-31.0) pg MCHC (33.0-37.0) g/dL RDW (11.5-14.5) % Plt Count (130-400) K/uL Sodium (132-148) mmol/l Potassium (3.6-5.0) MMOL/L Chloride (98-107) mmol/L Carbon Dioxide (22-30) mmol/L Anion Gap (10-20) BUN (7-17) mg/dl Creatinine (0.7-1.2) mg/dL Est GFR ( Amer) Est GFR (Non-Af Amer) POC Glucose (mg/dL) 67 84 (65-110) mg/dL Random Glucose (65-105) mg/dL Calcium (8.4-10.2) mg/dL Total Bilirubin (0.2-1.3) mg/dl AST (14-36) U/L ALT (9-52) U/L Alkaline Phosphatase (38-126) U/L Total Protein (6.3-8.2) G/DL Albumin (3.5-5.0) g/dL Globulin (2.2-3.9) gm/dL Albumin/Globulin Ratio (1.0-2.1) C. difficile Ag & Toxin (NEGATIVE) Blood Type AB POSITIVE Antibody Screen Negative Crossmatch See Detail BBK History Checked Patient has bt 09/02/16 09/02/16 Range/Units 14:52 11:29 WBC (4.8-10.8) K/uL RBC (3.80-5.20) Mil/uL Hgb (12.0-16.0) g/dL Hct (34.0-47.0) % MCV (81.0-99.0) fl MCH (27.0-31.0) pg MCHC (33.0-37.0) g/dL RDW (11.5-14.5) % Plt Count (130-400) K/uL Sodium (132-148) mmol/l Potassium (3.6-5.0) MMOL/L Chloride (98-107) mmol/L Carbon Dioxide (22-30) mmol/L Anion Gap (10-20) BUN (7-17) mg/dl Creatinine (0.7-1.2) mg/dL Est GFR ( Amer) Est GFR (Non-Af Amer) POC Glucose (mg/dL) 39 L 109 (65-110) mg/dL Random Glucose (65-105) mg/dL Calcium (8.4-10.2) mg/dL Total Bilirubin (0.2-1.3) mg/dl AST (14-36) U/L ALT (9-52) U/L Alkaline Phosphatase (38-126) U/L Total Protein (6.3-8.2) G/DL Albumin (3.5-5.0) g/dL Globulin (2.2-3.9) gm/dL Albumin/Globulin Ratio (1.0-2.1) C. difficile Ag & Toxin (NEGATIVE) Blood Type Antibody Screen Crossmatch BBK History Checked Laboratory Results - last 24 hr 09/02/16 09/02/16 09/02/16 11:29 14:52 15:00 WBC RBC Hgb Hct MCV MCH MCHC RDW Plt Count Sodium Potassium Chloride Carbon Dioxide Anion Gap BUN Creatinine Est GFR ( Amer) Est GFR (Non-Af Amer) POC Glucose (mg/dL) 109 39 L Random Glucose Calcium Total Bilirubin AST ALT Alkaline Phosphatase Total Protein Albumin Globulin Albumin/Globulin Ratio C. difficile Ag & Toxin Blood Type AB POSITIVE Antibody Screen Negative Crossmatch See Detail BBK History Checked Patient has bt 09/02/16 09/02/16 09/02/16 15:01 21:41 22:20 WBC RBC Hgb Hct MCV MCH MCHC RDW Plt Count Sodium Potassium Chloride Carbon Dioxide Anion Gap BUN Creatinine Est GFR ( Amer) Est GFR (Non-Af Amer) POC Glucose (mg/dL) 84 67 Random Glucose Calcium Total Bilirubin AST ALT Alkaline Phosphatase Total Protein Albumin Globulin Albumin/Globulin Ratio C. difficile Ag & Toxin Negative Blood Type Antibody Screen Crossmatch BBK History Checked 09/02/16 09/03/16 09/03/16 23:12 04:15 04:15 WBC 15.2 H RBC 3.13 L Hgb 9.2 L Hct 28.8 L MCV 92.0 MCH 29.4 MCHC 31.9 L RDW 20.8 H Plt Count 201 Sodium 137 Potassium 3.6 Chloride 95 L Carbon Dioxide 27 Anion Gap 19 BUN 19 H Creatinine 4.8 H Est GFR ( Amer) 12 Est GFR (Non-Af Amer) 10 POC Glucose (mg/dL) 100 Random Glucose 70 Calcium 8.1 L Total Bilirubin 0.7 AST 48 H ALT 44 Alkaline Phosphatase 161 H Total Protein 7.2 Albumin 3.0 L Globulin 4.2 H Albumin/Globulin Ratio 0.7 L C. difficile Ag & Toxin Blood Type Antibody Screen Crossmatch BBK History Checked 09/03/16 09/03/16 04:26 05:05 WBC RBC Hgb Hct MCV MCH MCHC RDW Plt Count Sodium Potassium Chloride Carbon Dioxide Anion Gap BUN Creatinine Est GFR ( Amer) Est GFR (Non-Af Amer) POC Glucose (mg/dL) 68 56 L Random Glucose Calcium Total Bilirubin AST ALT Alkaline Phosphatase Total Protein Albumin Globulin Albumin/Globulin Ratio C. difficile Ag & Toxin Blood Type Antibody Screen Crossmatch BBK History Checked Fingerstick Blood Sugar Results: 100 Critical Care Progress Note - Nutrition Nutrition: Nutrition Category Date Time Status Renal Diet [DIET] Diets 08/30/16 Dinner Active Assessment/Plan (1) Sepsis associated hypotension Current Visit: Yes Status: Acute Comment: -improved with BP, afebrile and still tachy -off pressor -trending down leukocytosis 15.2 -right foot wound culture showed E.Coli sensitivity to all the medication (2016) -blood culture and permacath blood showed E.Coli ( 08/27/2016) -continue with zosyn, zyvox and meropenem -monitor cbc and vitals (2) Ulcer of right foot Current Visit: Yes Status: Acute Comment: -Cellulitis of leg and ulceration with right foot -etiology possible osteomyelitis ? -wound culture showed E.Coli -continue with zosyn. 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 Although there is atherosclerotic disease distally flow documented in the popliteal artery and posterior tibial artery. Nondiagnostic assessment right dorsalis pedis artery. Nonvisualization right anterior tibial artery. - pending for MRI forright lower extremity -consider CTA on lower extremity - (3) Pneumonia Current Visit: No Status: Acute Comment: -afebrile -improving leukocytosis -chest xray showed Stable infiltrates right lower lobe. No new/ acute findings. No new/acute findings apparent. -multiple coverage antibiotic -pulomonary PT (4) ESRD (end stage renal disease) on dialysis Current Visit: No Status: Chronic Comment: -HD (MWF) and HD today -HD on MWF -BUN/Cr:19/4.8 -continue with renagel 1600mg TID and sensipar 30mg daily. -monitor BMP -renal diet (5) Hyperlipidemia Current Visit: Yes Status: Acute Comment: -continue with lipitor (6) PVD (peripheral vascular disease) Current Visit: Yes Status: Acute Comment: -continue with eliquis -continue with lipitor (7) Diabetes mellitus type 2 with peripheral artery disease Current Visit: Yes Status: Acute Comment: -uncontrolled -HgA1C: 11 -monitor only bmp not accucheck -continue with humalog but hold detemir for now -Endo is on board (8) Coagulopathy Current Visit: No Status: Chronic Comment: -hx of Protein C & S deficiency and heparin antibodies -continue with eliquis (9) DVT prophylaxis Current Visit: Yes Status: Acute Comment: -hx of protein c and S deficiency -continue with eliquis <Jaswinder Das - Last Filed: 09/03/16 13:34> CCU Objective - Vital Signs / Intake & Output Vital Signs (Last 4 hours): Vital Signs Temp Pulse Resp BP Pulse Ox 09/03/16 11:55 98.4 F 113 H 24 124/93 H 97 Intake and Output (Last 8hrs): Intake & Output 09/02/16 09/03/16 09/03/16 22:59 06:59 14:59 Intake Total 430 373 Balance 430 373 Intake: IV 10 8 Intake, Piggyback 300 100 Oral 120 265 Other: # Bowel Movements 1 - Medications Active Medications: Active Medications Generic Name Dose Route Start Last Admin Trade Name Freq PRN Reason Stop Dose Admin Acetaminophen 650 mg 08/28/16 00:09 08/28/16 15:23 Tylenol 325mg Tab PO 650 mg Q4 PRN Administration Fever >100.4 F Acetaminophen 650 mg 08/28/16 00:12 09/03/16 03:33 Tylenol 325mg Tab PO 650 mg Q4 PRN Administration Pain, moderate (4-7) Acetylcysteine 2 ml 09/03/16 20:00 Mucomyst 10% 4ml IH RBID JASPER Albuterol Sulfate 2.5 mg 09/03/16 20:00 Albuterol 0.083% Inhal Barbie (2.5 Mg/3 Ml) Ud INH RBID JASPER Albuterol/Ipratropium 3 ml 08/29/16 18:39 09/02/16 21:32 Duoneb 3 Mg/0.5 Mg (3 Ml) Ud INH 3 ml RQ4 PRN Administration Shortness of Breath Apixaban 5 mg 08/28/16 09:15 09/03/16 09:00 Eliquis PO 5 mg BID JASPER Administration Protocol Aspirin 81 mg 08/28/16 09:00 09/03/16 08:59 Ecotrin PO 81 mg DAILY JASPER Administration Atorvastatin Calcium 40 mg 08/28/16 09:00 09/03/16 09:02 Lipitor PO 40 mg DAILY JASPER Administration Cinacalcet 30 mg 08/28/16 11:15 09/03/16 09:04 Sensipar PO 30 mg DAILY JASPER Administration Collagenase 1 applic 08/28/16 09:00 09/03/16 09:04 Santyl TOP 1 applic DAILY JASPER Administration Docusate Sodium 200 mg 08/28/16 09:00 09/03/16 08:57 Colace PO Not Given BID [facility] Epoetin Tha 20,000 unit 09/02/16 09:00 09/02/16 15:28 Procrit IV 20,000 unit MWF JASPER Administration Guaifenesin/Dextromethorphan 10 ml 09/01/16 10:33 09/02/16 22:09 Robitussin Dm PO 10 ml Q4 PRN Administration Cough Hydrocortisone 1 applic 09/01/16 10:45 09/03/16 09:22 Anusol-Hc SC 1 applic BID JASPER Administration Piperacillin Sod/Tazobactam 100 mls @ 100 mls/hr 08/27/16 21:00 09/03/16 09: 05 Sod 2.25 gm/ Sodium Chloride IVPB 100 mls/hr Q12 JASPER Administration Linezolid 300 mls @ 300 mls/hr 08/27/16 21:00 09/02/16 20:40 Zyvox 600mg/300ml D5w IVPB 300 mls/hr Q12 JASPER Administration Meropenem 500 mg/ Sodium 100 mls @ 100 mls/hr 08/29/16 09:00 09/03/16 09:02 Chloride IVPB 100 mls/hr DAILY JASPER Administration Sodium Chloride 250 mls @ 999 mls/hr 08/29/16 23:30 08/30/16 05:36 Sodium Chloride 0.9% IV 999 mls/hr .Q16M JASPER Administration Amikacin Sulfate 250 mg/ 101 mls @ 100.609 mls/hr 09/04/16 09:00 Sodium Chloride IVPB MWF JASPRE Insulin Detemir 14 units 09/02/16 22:00 09/02/16 21:59 Levemir SC Not Given HS [facility] Insulin Human Lispro 3 units 09/03/16 16:30 Humalog SC AC JASPER Lidocaine 1 ea 08/29/16 13:30 09/03/16 09:01 Lidoderm TD Not Given DAILY JASPER Nystatin 1 applic 09/02/16 13:00 09/02/16 20:38 Nystop Topical Powder TOP 1 applic TID JASPER Administration Ondansetron HCl 4 mg 08/29/16 19:00 09/02/16 12:11 Zofran Inj IVP 4 mg Q6 PRN Administration Nausea/Vomiting Pantoprazole Sodium 40 mg 08/31/16 11:00 09/03/16 09:03 Protonix Inj IVP 40 mg DAILY JASPER Administration Sevelamer HCl 1,600 mg 08/28/16 11:11 09/03/16 09:03 Renagel PO 1,600 mg TID JASPER Administration Topiramate 50 mg 08/30/16 18:45 09/03/16 09:04 Topamax PO 50 mg BID JASPER Administration Vitamin B Complex/Vit C/Folic Acid 1 tab 08/28/16 09:00 09/03/16 09:03 Nephro-Ajay PO 1 tab DAILY JASPER Administration - Patient Studies Lab Studies: Microbiology Studies 08/27/16 20:09 Gram Stain - Final Foot - Right Wound Culture - Final Escherichia Coli 08/29/16 10:51 Blood Culture - Final Blood NO GROWTH AFTER 5 DAYS Gram Stain - Final TEST NOT PERFORMED 08/31/16 09:23 Blood Culture - Preliminary Blood NO GROWTH AFTER 3 DAYS 04/19/17 16:11 Blood Culture - Final Blood-Thru Central Line NO GROWTH AFTER 5 DAYS Gram Stain - Final TEST NOT PERFORMED Lab Studies 09/03/16 09/03/16 09/03/16 Range/Units 05:05 04:26 04:15 WBC (4.8-10.8) K/uL RBC (3.80-5.20) Mil/uL Hgb (12.0-16.0) g/dL Hct (34.0-47.0) % MCV (81.0-99.0) fl MCH (27.0-31.0) pg MCHC (33.0-37.0) g/dL RDW (11.5-14.5) % Plt Count (130-400) K/uL Sodium 137 (132-148) mmol/l Potassium 3.6 (3.6-5.0) MMOL/L Chloride 95 L (98-107) mmol/L Carbon Dioxide 27 (22-30) mmol/L Anion Gap 19 (10-20) BUN 19 H (7-17) mg/dl Creatinine 4.8 H (0.7-1.2) mg/dL Est GFR ( Amer) 12 Est GFR (Non-Af Amer) 10 POC Glucose (mg/dL) 56 L 68 (65-110) mg/dL Random Glucose 70 (65-105) mg/dL Calcium 8.1 L (8.4-10.2) mg/dL Total Bilirubin 0.7 (0.2-1.3) mg/dl AST 48 H (14-36) U/L ALT 44 (9-52) U/L Alkaline Phosphatase 161 H (38-126) U/L Total Protein 7.2 (6.3-8.2) G/DL Albumin 3.0 L (3.5-5.0) g/dL Globulin 4.2 H (2.2-3.9) gm/dL Albumin/Globulin Ratio 0.7 L (1.0-2.1) C. difficile Ag & Toxin (NEGATIVE) Blood Type Antibody Screen Crossmatch BBK History Checked 09/03/16 09/02/16 09/02/16 Range/Units 04:15 23:12 22:20 WBC 15.2 H (4.8-10.8) K/uL RBC 3.13 L (3.80-5.20) Mil/uL Hgb 9.2 L (12.0-16.0) g/dL Hct 28.8 L (34.0-47.0) % MCV 92.0 (81.0-99.0) fl MCH 29.4 (27.0-31.0) pg MCHC 31.9 L (33.0-37.0) g/dL RDW 20.8 H (11.5-14.5) % Plt Count 201 (130-400) K/uL Sodium (132-148) mmol/l Potassium (3.6-5.0) MMOL/L Chloride (98-107) mmol/L Carbon Dioxide (22-30) mmol/L Anion Gap (10-20) BUN (7-17) mg/dl Creatinine (0.7-1.2) mg/dL Est GFR ( Amer) Est GFR (Non-Af Amer) POC Glucose (mg/dL) 100 (65-110) mg/dL Random Glucose (65-105) mg/dL Calcium (8.4-10.2) mg/dL Total Bilirubin (0.2-1.3) mg/dl AST (14-36) U/L ALT (9-52) U/L Alkaline Phosphatase (38-126) U/L Total Protein (6.3-8.2) G/DL Albumin (3.5-5.0) g/dL Globulin (2.2-3.9) gm/dL Albumin/Globulin Ratio (1.0-2.1) C. difficile Ag & Toxin Negative (NEGATIVE) Blood Type Antibody Screen Crossmatch BBK History Checked 09/02/16 09/02/16 09/02/16 Range/Units 21:41 15:01 15:00 WBC (4.8-10.8) K/uL RBC (3.80-5.20) Mil/uL Hgb (12.0-16.0) g/dL Hct (34.0-47.0) % MCV (81.0-99.0) fl MCH (27.0-31.0) pg MCHC (33.0-37.0) g/dL RDW (11.5-14.5) % Plt Count (130-400) K/uL Sodium (132-148) mmol/l Potassium (3.6-5.0) MMOL/L Chloride (98-107) mmol/L Carbon Dioxide (22-30) mmol/L Anion Gap (10-20) BUN (7-17) mg/dl Creatinine (0.7-1.2) mg/dL Est GFR ( Amer) Est GFR (Non-Af Amer) POC Glucose (mg/dL) 67 84 (65-110) mg/dL Random Glucose (65-105) mg/dL Calcium (8.4-10.2) mg/dL Total Bilirubin (0.2-1.3) mg/dl AST (14-36) U/L ALT (9-52) U/L Alkaline Phosphatase (38-126) U/L Total Protein (6.3-8.2) G/DL Albumin (3.5-5.0) g/dL Globulin (2.2-3.9) gm/dL Albumin/Globulin Ratio (1.0-2.1) C. difficile Ag & Toxin (NEGATIVE) Blood Type AB POSITIVE Antibody Screen Negative Crossmatch See Detail BBK History Checked Patient has bt 09/02/16 Range/Units 14:52 WBC (4.8-10.8) K/uL RBC (3.80-5.20) Mil/uL Hgb (12.0-16.0) g/dL Hct (34.0-47.0) % MCV (81.0-99.0) fl MCH (27.0-31.0) pg MCHC (33.0-37.0) g/dL RDW (11.5-14.5) % Plt Count (130-400) K/uL Sodium (132-148) mmol/l Potassium (3.6-5.0) MMOL/L Chloride (98-107) mmol/L Carbon Dioxide (22-30) mmol/L Anion Gap (10-20) BUN (7-17) mg/dl Creatinine (0.7-1.2) mg/dL Est GFR ( Amer) Est GFR (Non-Af Amer) POC Glucose (mg/dL) 39 L (65-110) mg/dL Random Glucose (65-105) mg/dL Calcium (8.4-10.2) mg/dL Total Bilirubin (0.2-1.3) mg/dl AST (14-36) U/L ALT (9-52) U/L Alkaline Phosphatase (38-126) U/L Total Protein (6.3-8.2) G/DL Albumin (3.5-5.0) g/dL Globulin (2.2-3.9) gm/dL Albumin/Globulin Ratio (1.0-2.1) C. difficile Ag & Toxin (NEGATIVE) Blood Type Antibody Screen Crossmatch BBK History Checked Laboratory Results - last 24 hr 09/02/16 09/02/16 09/02/16 14:52 15:00 15:01 WBC RBC Hgb Hct MCV MCH MCHC RDW Plt Count Sodium Potassium Chloride Carbon Dioxide Anion Gap BUN Creatinine Est GFR ( Amer) Est GFR (Non-Af Amer) POC Glucose (mg/dL) 39 L 84 Random Glucose Calcium Total Bilirubin AST ALT Alkaline Phosphatase Total Protein Albumin Globulin Albumin/Globulin Ratio C. difficile Ag & Toxin Blood Type AB POSITIVE Antibody Screen Negative Crossmatch See Detail BBK History Checked Patient has bt 09/02/16 09/02/16 09/02/16 21:41 22:20 23:12 WBC RBC Hgb Hct MCV MCH MCHC RDW Plt Count Sodium Potassium Chloride Carbon Dioxide Anion Gap BUN Creatinine Est GFR ( Amer) Est GFR (Non-Af Amer) POC Glucose (mg/dL) 67 100 Random Glucose Calcium Total Bilirubin AST ALT Alkaline Phosphatase Total Protein Albumin Globulin Albumin/Globulin Ratio C. difficile Ag & Toxin Negative Blood Type Antibody Screen Crossmatch BBK History Checked 09/03/16 09/03/16 09/03/16 04:15 04:15 04:26 WBC 15.2 H RBC 3.13 L Hgb 9.2 L Hct 28.8 L MCV 92.0 MCH 29.4 MCHC 31.9 L RDW 20.8 H Plt Count 201 Sodium 137 Potassium 3.6 Chloride 95 L Carbon Dioxide 27 Anion Gap 19 BUN 19 H Creatinine 4.8 H Est GFR ( Amer) 12 Est GFR (Non-Af Amer) 10 POC Glucose (mg/dL) 68 Random Glucose 70 Calcium 8.1 L Total Bilirubin 0.7 AST 48 H ALT 44 Alkaline Phosphatase 161 H Total Protein 7.2 Albumin 3.0 L Globulin 4.2 H Albumin/Globulin Ratio 0.7 L C. difficile Ag & Toxin Blood Type Antibody Screen Crossmatch BBK History Checked 09/03/16 05:05 WBC RBC Hgb Hct MCV MCH MCHC RDW Plt Count Sodium Potassium Chloride Carbon Dioxide Anion Gap BUN Creatinine Est GFR ( Amer) Est GFR (Non-Af Amer) POC Glucose (mg/dL) 56 L Random Glucose Calcium Total Bilirubin AST ALT Alkaline Phosphatase Total Protein Albumin Globulin Albumin/Globulin Ratio C. difficile Ag & Toxin Blood Type Antibody Screen Crossmatch BBK History Checked Critical Care Progress Note - Nutrition Nutrition: Nutrition Category Date Time Status Renal Diet [DIET] Diets 08/30/16 Dinner Active Attending/Attestation - Attestation I have personally seen and examined this patient.: Yes I have fully participated in the care of the patient.: Yes I have reviewed all pertinent clinical information: Yes Notes (Text): 09/03/16 13:33 I have seen and examined the patient. Medical records, lab studies, and imaging were reviewed by me and a management plan was formulated on multidisciplinary rounds with resident Dr. Groves. I agree with their above documented assessment and plan. Patient to get MRI today to r/o osteomyelitis, which will affect abx therapy duration. Patient will most likely need BKA of the right lower extremity. General Surgery consulted. Critical Care Time 35 minutes. Multi-disciplinary rounds were performed with house staff, nursing, speech therapy, respiratory therapy, pharmacy and nutrition with integrated input from the primary team/attending and other consulting services. The documented time is cumulative and includes review of patient data/exams/labs/chart review and examination of the patient on rounds and throughout the day; time is exclusive of any procedures or teaching time.
--- NOTE | 2016-09-03 10:54 | CP.PCM.PN ---
Subjective - Date & Time of Evaluation Date of Evaluation: 09/03/16 Time of Evaluation: 10:51 - Subjective Subjective: Patient awake in bed not in any acute distress today appears to be comfortable No significant coughing reported And vital sign noted to be okay blood pressure much better without vasopressor and temperature is normal. Appetite much better Objective - Vital Signs/Intake and Output Vital Signs (last 24 hours): Temp Pulse Resp BP Pulse Ox 98.5 F 108 H 22 128/40 L 100 09/03/16 08:00 09/03/16 08:00 09/03/16 08:00 09/03/16 08:00 09/03/16 08:00 Intake and Output: 09/03/16 09/03/16 06:59 18:59 Intake Total 683 Balance 683 - Medications Medications: Current Medications Acetaminophen (Tylenol 325mg Tab) 650 mg PO Q4 PRN PRN Reason: Fever >100.4 F Last Admin: 08/28/16 15:23 Dose: 650 mg Acetaminophen (Tylenol 325mg Tab) 650 mg PO Q4 PRN PRN Reason: Pain, moderate (4-7) Last Admin: 09/03/16 03:33 Dose: 650 mg Acetylcysteine (Mucomyst 10% 4ml) 2 ml IH RBID JASPER Albuterol Sulfate (Albuterol 0.083% Inhal Barbie (2.5 Mg/3 Ml) Ud) 2.5 mg INH RBID JASPER Albuterol/Ipratropium (Duoneb 3 Mg/0.5 Mg (3 Ml) Ud) 3 ml INH RQ4 PRN PRN Reason: Shortness of Breath Last Admin: 09/02/16 21:32 Dose: 3 ml Apixaban (Eliquis) 5 mg PO BID [facility] PRN Reason: Protocol Last Admin: 09/03/16 09:00 Dose: 5 mg Aspirin (Ecotrin) 81 mg PO DAILY [facility] Last Admin: 09/03/16 08:59 Dose: 81 mg Atorvastatin Calcium (Lipitor) 40 mg PO DAILY [facility] Last Admin: 09/03/16 09:02 Dose: 40 mg Cinacalcet (Sensipar) 30 mg PO DAILY [facility] Last Admin: 09/03/16 09:04 Dose: 30 mg Collagenase (Santyl) 1 applic TOP DAILY [facility] Last Admin: 09/03/16 09:04 Dose: 1 applic Docusate Sodium (Colace) 200 mg PO BID [facility] Last Admin: 09/03/16 08:57 Dose: Not Given Epoetin Tha (Procrit) 20,000 unit IV [facility] [place] Last Admin: 09/02/16 15:28 Dose: 20,000 unit Guaifenesin/Dextromethorphan (Robitussin Dm) 10 ml PO Q4 PRN PRN Reason: Cough Last Admin: 09/02/16 22:09 Dose: 10 ml Hydrocortisone (Anusol-Hc) 1 applic DC BID [facility] Last Admin: 09/03/16 09:22 Dose: 1 applic Piperacillin Sod/Tazobactam (Sod 2.25 gm/ Sodium Chloride) 100 mls @ 100 mls/ hr IVPB Q12 [facility] Last Admin: 09/03/16 09:05 Dose: 100 mls/hr Linezolid (Zyvox 600mg/300ml D5w) 300 mls @ 300 mls/hr IVPB Q12 [facility] Last Admin: 09/02/16 20:40 Dose: 300 mls/hr Meropenem 500 mg/ Sodium (Chloride) 100 mls @ 100 mls/hr IVPB DAILY [facility] Last Admin: 09/03/16 09:02 Dose: 100 mls/hr Sodium Chloride (Sodium Chloride 0.9%) 250 mls @ 999 mls/hr IV .Q16M [facility] Last Admin: 08/30/16 05:36 Dose: 999 mls/hr Amikacin Sulfate 250 mg/ (Sodium Chloride) 251 mls @ 250 mls/hr IVPB MWF [facility] Last Admin: 09/02/16 08:41 Dose: 250 mls/hr Insulin Detemir (Levemir) 14 units SC HS [facility] Last Admin: 09/02/16 21:59 Dose: Not Given Insulin Human Lispro (Humalog) 6 units SC AC [facility] Lidocaine (Lidoderm) 1 ea TD DAILY [facility] Last Admin: 09/03/16 09:01 Dose: Not Given Nystatin (Nystop Topical Powder) 1 applic TOP TID [facility] Last Admin: 09/02/16 20:38 Dose: 1 applic Ondansetron HCl (Zofran Inj) 4 mg IVP Q6 PRN PRN Reason: Nausea/Vomiting Last Admin: 09/02/16 12:11 Dose: 4 mg Pantoprazole Sodium (Protonix Inj) 40 mg IVP DAILY [facility] Last Admin: 09/03/16 09:03 Dose: 40 mg Sevelamer HCl (Renagel) 1,600 mg PO TID [facility] Last Admin: 09/03/16 09:03 Dose: 1,600 mg Topiramate (Topamax) 50 mg PO BID [facility] Last Admin: 09/03/16 09:04 Dose: 50 mg Vitamin B Complex/Vit C/Folic Acid (Nephro-Ajay) 1 tab PO DAILY [facility] Last Admin: 09/03/16 09:03 Dose: 1 tab - Labs Labs: 09/03/16 04:15 09/03/16 04:15 PT 16.5 SECONDS (9.6-11.2) H 08/28/16 16:11 INR 1.59 (0.92-1.08) H 08/28/16 16:11 APTT 38.7 SECONDS (23.3-32.5) H 08/28/16 16:11 - Constitutional Appears: No Acute Distress - ENT Exam ENT Exam: Mucous Membranes Moist - Respiratory Exam Respiratory Exam: NORMAL BREATHING PATTERN. absent: Chest Wall Tenderness - Cardiovascular Exam Cardiovascular Exam: REGULAR RHYTHM. absent: Rubs - Extremities Exam Extremities Exam: absent: Calf Tenderness - Back Exam Back Exam: absent: CVA tenderness (L), CVA tenderness (R) - Neurological Exam Neurological Exam: Alert Assessment and Plan (1) ESRD (end stage renal disease) Assessment & Plan: End stage renal disease Patient tolerated hemodialysis yesterday and she was transfused 1 unit of packed cells hemoglobin noted to be 9.2, WBC improving came down to 15,000 Patient also on EPO for the anemia as well which has been increased yesterday to 20,000 units each hemodialysis Sepsis on multiple antibiotics. The latest blood culture negative the initial one was positive with Escherichia coli. Bilateral lung infiltrate as noted seen by pulmonary. Continue hemodialysis as scheduled MWF Status: Chronic (2) Cellulitis of leg Status: Acute
--- NOTE | 2016-09-03 13:15 | CP.PCM.PN ---
Subjective - Date & Time of Evaluation Date of Evaluation: 09/03/16 Time of Evaluation: 13:02 - Subjective Subjective: Patient looks much better today. Notes by various consultants appreciated. CONSIDERATIONS: PROBABLE OSTEOMYELITIS LEFT HEEL - awaiting MRI to be done today. If this is conirmed, then amputation is the preferred treatment. The Charcot joint of the right ankle is quite useles - totally unable to support the leg and has required the rigid brace that caused the heel ulcer in the first place. We know that the patient's arterial vasculature is terrible - due to diabetes mellitus, due to calcifications related to ESRD on hemodialysis, due to hypercoagulable state. There is little to be gained by arteriography and much risk involved. I am objecting to arteriography at this time. To continue same 4 antibiotics IV.due COAGULOPATHY - Patient has antibodies to heparin so this cannot be used. She is on Eliquis and aspirin, and this has been successful in preventing further vascular problems. Before Eliquis the patient clotted A-V fistulae in upper extremities and lower extremities. She lost her left lower leg when an attempt was made to declot an A-V fistula and emboli were showered down the leg. 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 She has a very limited PICC in the RUE because her vasulature is so fibrosed. Dr. Andrew Shepard has informed me that we need to stop the Eliquis 48 hours before any surgery, but I would like to continue the aspirin based on her history. In the recent past Alteplase has been used with success when the Permacath was not functioning as well as desired. DIABETES MELLITUS - Dr. Ambrose is managing this with improvement. PNEUMONIA - "hypostatic" and hospital acquired. Lungs sounds are much improved, breathing easier, no fevers. Continues on antibiotics, Mucinex, and nebulizer txs. ANEMIA - S/P Transfusion of 1 unit of rbcs yesterday. NO MAJOR DIARRHEA - C diff serology is negative. ESRD - tolerating HD - managed by Dr. Guadarrama Objective - Vital Signs/Intake and Output Vital Signs (last 24 hours): Temp Pulse Resp BP Pulse Ox 98.4 F 113 H 24 124/93 H 97 09/03/16 11:55 09/03/16 11:55 09/03/16 11:55 09/03/16 11:55 09/03/16 11:55 Intake and Output: 09/03/16 09/03/16 06:59 18:59 Intake Total 683 Balance 683 - Medications Medications: Current Medications Acetaminophen (Tylenol 325mg Tab) 650 mg PO Q4 PRN PRN Reason: Fever >100.4 F Last Admin: 08/28/16 15:23 Dose: 650 mg Acetaminophen (Tylenol 325mg Tab) 650 mg PO Q4 PRN PRN Reason: Pain, moderate (4-7) Last Admin: 09/03/16 03:33 Dose: 650 mg Acetylcysteine (Mucomyst 10% 4ml) 2 ml IH RBID JASPER Albuterol Sulfate (Albuterol 0.083% Inhal Barbie (2.5 Mg/3 Ml) Ud) 2.5 mg INH RBID JASPER Albuterol/Ipratropium (Duoneb 3 Mg/0.5 Mg (3 Ml) Ud) 3 ml INH RQ4 PRN PRN Reason: Shortness of Breath Last Admin: 09/02/16 21:32 Dose: 3 ml Apixaban (Eliquis) 5 mg PO BID [facility] PRN Reason: Protocol Last Admin: 09/03/16 09:00 Dose: 5 mg Aspirin (Ecotrin) 81 mg PO DAILY [facility] Last Admin: 09/03/16 08:59 Dose: 81 mg Atorvastatin Calcium (Lipitor) 40 mg PO DAILY [facility] Last Admin: 09/03/16 09:02 Dose: 40 mg Cinacalcet (Sensipar) 30 mg PO DAILY [facility] Last Admin: 09/03/16 09:04 Dose: 30 mg Collagenase (Santyl) 1 applic TOP DAILY [facility] Last Admin: 09/03/16 09:04 Dose: 1 applic Docusate Sodium (Colace) 200 mg PO BID [facility] Last Admin: 09/03/16 08:57 Dose: Not Given Epoetin Tha (Procrit) 20,000 unit IV MWF [facility] Last Admin: 09/02/16 15:28 Dose: 20,000 unit Guaifenesin/Dextromethorphan (Robitussin Dm) 10 ml PO Q4 PRN PRN Reason: Cough Last Admin: 09/02/16 22:09 Dose: 10 ml Hydrocortisone (Anusol-Hc) 1 applic MD BID [facility] Last Admin: 09/03/16 09:22 Dose: 1 applic Piperacillin Sod/Tazobactam (Sod 2.25 gm/ Sodium Chloride) 100 mls @ 100 mls/ hr IVPB Q12 [facility] Last Admin: 09/03/16 09:05 Dose: 100 mls/hr Linezolid (Zyvox 600mg/300ml D5w) 300 mls @ 300 mls/hr IVPB Q12 [facility] Last Admin: 09/02/16 20:40 Dose: 300 mls/hr Meropenem 500 mg/ Sodium (Chloride) 100 mls @ 100 mls/hr IVPB DAILY [facility] Last Admin: 09/03/16 09:02 Dose: 100 mls/hr Sodium Chloride (Sodium Chloride 0.9%) 250 mls @ 999 mls/hr IV .Q16M [facility] Last Admin: 08/30/16 05:36 Dose: 999 mls/hr Amikacin Sulfate 250 mg/ (Sodium Chloride) 251 mls @ 250 mls/hr IVPB MWF [facility] Last Admin: 09/02/16 08:41 Dose: 250 mls/hr Insulin Detemir (Levemir) 14 units SC HS [facility] Last Admin: 09/02/16 21:59 Dose: Not Given Insulin Human Lispro (Humalog) 3 units SC AC [facility] Lidocaine (Lidoderm) 1 ea TD DAILY [facility] Last Admin: 09/03/16 09:01 Dose: Not Given Nystatin (Nystop Topical Powder) 1 applic TOP TID [facility] Last Admin: 09/02/16 20:38 Dose: 1 applic Ondansetron HCl (Zofran Inj) 4 mg IVP Q6 PRN PRN Reason: Nausea/Vomiting Last Admin: 09/02/16 12:11 Dose: 4 mg Pantoprazole Sodium (Protonix Inj) 40 mg IVP DAILY [facility] Last Admin: 09/03/16 09:03 Dose: 40 mg Sevelamer HCl (Renagel) 1,600 mg PO TID [facility] Last Admin: 09/03/16 09:03 Dose: 1,600 mg Topiramate (Topamax) 50 mg PO BID [facility] Last Admin: 09/03/16 09:04 Dose: 50 mg Vitamin B Complex/Vit C/Folic Acid (Nephro-Ajay) 1 tab PO DAILY [facility] Last Admin: 09/03/16 09:03 Dose: 1 tab - Labs Labs: 09/03/16 04:15 09/03/16 04:15 PT 16.5 SECONDS (9.6-11.2) H 08/28/16 16:11 INR 1.59 (0.92-1.08) H 08/28/16 16:11 APTT 38.7 SECONDS (23.3-32.5) H 08/28/16 16:11 - Constitutional Appears: No Acute Distress - Head Exam Head Exam: NORMAL INSPECTION - ENT Exam ENT Exam: Mucous Membranes Moist - Neck Exam Neck Exam: Normal Inspection - Respiratory Exam Respiratory Exam: Clear to Ausculation Bilateral, NORMAL BREATHING PATTERN - Cardiovascular Exam Cardiovascular Exam: REGULAR RHYTHM, +S1, +S2 - GI/Abdominal Exam GI & Abdominal Exam: Soft, Normal Bowel Sounds - Extremities Exam Additional comments: Unchanged. - Skin Additional comments: Excoriations beneath breasts - not much change. Assessment and Plan (1) ESRD (end stage renal disease) on dialysis Status: Chronic (2) DM type 2 (diabetes mellitus, type 2) Status: Chronic (3) Coagulopathy Status: Chronic (4) Peripheral arterial occlusive disease Status: Chronic (5) Ulcer of right heel Status: Acute (6) SIRS (systemic inflammatory response syndrome) Status: Acute - Assessment and Plan (Free Text) Assessment: LONG STORY - SHORT: I BELIEVE THE PATIENT HAS AN OSTEOMYELITIS OF THE LEFT HEEL. IN A DIABETIC WITH DOCUMENTED HORRENDOUS ARTERIAL DISEASE THE TREATMENT OF CHOICE IS AMPUTATION. MANAGEMENT WILL BE DIFFICULT, BUT WITH THE HELP OF MANY CONSULTANTS I BELIEVE THIS CAN BE DONE SUCESSFULLY SO TO ALLOW THIS YOUNG WOMAN TO GET BACK INTO LIFE! SEE PROBLEM LIST SEE SUBJECTIVE.
[2016-09-03] MEDS ORDERED: Promethazine/Cod 6.25mg-10mg/5ml Syr UD PO PRN (14:48)
--- NOTE | 2016-09-03 14:52 | PN ---
DATE: 09/03/2016 LOCATION: ICU, room 433. This is a 46-year-old female with recent uncontrolled type 2 insulin-requiring diabetes with extremes of glycemic fluctuations who presented initially with hyperglycemic acceleration from intercurrent r ight leg cellulitis and nonhealing neuropathic ulceration with supervening hypoglycemic episodes over the last 24 hours related to very nil and suboptimal oral intake at this time. Her glucose levels today have ranged from 56-68 mg/dL. It was 100 last night at bedtime. The latest chemistry showed a BUN of 19, sodium 137, potassium 3.6, chloride 95, CO2 27, glucose 70 and creatin ine 4.8. So at this time, will modify once again her prandial insulins and lower the dose of Humalog given as 3 units subQ t.i.d. before meals and will hold for glucose levels below 120 as ordered. The Levemir given overnight has been held which is actually a dose of 14 units at bedtime daily. Will continue t he low-dose correction scale using Humalog insulin as given. Will titrate incrementally as indicated to optimize metabolic control. Will follow and advise accordingly. Irene Ambrose MD cc: [id number] TT: 09/03/2016 14:51:15 Confirmation # [id number] Dictation # [id number] russell
--- NOTE | 2016-09-03 15:25 | CP.PCM.PN ---
Subjective - Date & Time of Evaluation Date of Evaluation: 09/03/16 Time of Evaluation: 14:30 - Subjective Subjective: PODIATRY PROGRESS NOTE FOR DR. EDWARDS: 46 yo female patient seen at bedside in ICU today w/ Dr. Pruett present. Pt says she is feel better today. Denies any f/n/v/c/sob/cp. Says pain to right leg is much improved from prior days. Denies any other problems today. Objective - Vital Signs/Intake and Output Vital Signs (last 24 hours): Temp Pulse Resp BP Pulse Ox 98.4 F 113 H 24 124/93 H 97 09/03/16 11:55 09/03/16 11:55 09/03/16 11:55 09/03/16 11:55 09/03/16 11:55 Intake and Output: 09/03/16 09/03/16 06:59 18:59 Intake Total 683 Balance 683 - Medications Medications: Current Medications Acetaminophen (Tylenol 325mg Tab) 650 mg PO Q4 PRN PRN Reason: Fever >100.4 F Last Admin: 08/28/16 15:23 Dose: 650 mg Acetaminophen (Tylenol 325mg Tab) 650 mg PO Q4 PRN PRN Reason: Pain, moderate (4-7) Last Admin: 09/03/16 03:33 Dose: 650 mg Acetylcysteine (Mucomyst 10% 4ml) 2 ml IH RBID JASPER Albuterol Sulfate (Albuterol 0.083% Inhal Barbie (2.5 Mg/3 Ml) Ud) 2.5 mg INH RBID JASPER Albuterol/Ipratropium (Duoneb 3 Mg/0.5 Mg (3 Ml) Ud) 3 ml INH RQ4 PRN PRN Reason: Shortness of Breath Last Admin: 09/02/16 21:32 Dose: 3 ml Apixaban (Eliquis) 5 mg PO BID [facility] PRN Reason: Protocol Last Admin: 09/03/16 09:00 Dose: 5 mg Aspirin (Ecotrin) 81 mg PO DAILY [facility] Last Admin: 09/03/16 08:59 Dose: 81 mg Atorvastatin Calcium (Lipitor) 40 mg PO DAILY [facility] Last Admin: 09/03/16 09:02 Dose: 40 mg Cinacalcet (Sensipar) 30 mg PO DAILY [facility] Last Admin: 09/03/16 09:04 Dose: 30 mg Collagenase (Santyl) 1 applic TOP DAILY [facility] Last Admin: 09/03/16 09:04 Dose: 1 applic Docusate Sodium (Colace) 200 mg PO BID [facility] Last Admin: 09/03/16 08:57 Dose: Not Given Epoetin Tha (Procrit) 20,000 unit IV MWF [facility] Last Admin: 09/02/16 15:28 Dose: 20,000 unit Guaifenesin/Dextromethorphan (Robitussin Dm) 10 ml PO Q4 PRN PRN Reason: Cough Last Admin: 09/02/16 22:09 Dose: 10 ml Hydrocortisone (Anusol-Hc) 1 applic AL BID [facility] Last Admin: 09/03/16 09:22 Dose: 1 applic Piperacillin Sod/Tazobactam (Sod 2.25 gm/ Sodium Chloride) 100 mls @ 100 mls/ hr IVPB Q12 [facility] Last Admin: 09/03/16 09:05 Dose: 100 mls/hr Linezolid (Zyvox 600mg/300ml D5w) 300 mls @ 300 mls/hr IVPB Q12 [facility] Last Admin: 09/02/16 20:40 Dose: 300 mls/hr Meropenem 500 mg/ Sodium (Chloride) 100 mls @ 100 mls/hr IVPB DAILY [facility] Last Admin: 09/03/16 09:02 Dose: 100 mls/hr Sodium Chloride (Sodium Chloride 0.9%) 250 mls @ 999 mls/hr IV .Q16M [facility] Last Admin: 08/30/16 05:36 Dose: 999 mls/hr Amikacin Sulfate 250 mg/ (Sodium Chloride) 101 mls @ 100.609 mls/hr IVPB [facility] [place] Insulin Detemir (Levemir) 14 units SC HS [facility] Last Admin: 09/02/16 21:59 Dose: Not Given Insulin Human Lispro (Humalog) 3 units SC AC [facility] Lidocaine (Lidoderm) 1 ea TD DAILY [facility] Last Admin: 09/03/16 09:01 Dose: Not Given Nystatin (Nystop Topical Powder) 1 applic TOP TID [facility] Last Admin: 09/02/16 20:38 Dose: 1 applic Ondansetron HCl (Zofran Inj) 4 mg IVP Q6 PRN PRN Reason: Nausea/Vomiting Last Admin: 09/02/16 12:11 Dose: 4 mg Pantoprazole Sodium (Protonix Inj) 40 mg IVP DAILY [facility] Last Admin: 09/03/16 09:03 Dose: 40 mg Promethazine HCl/Codeine (Phenergan/Codeine Oral Syrup) 5 ml PO Q6 PRN PRN Reason: Cough Sevelamer HCl (Renagel) 1,600 mg PO TID [facility] Last Admin: 09/03/16 09:03 Dose: 1,600 mg Topiramate (Topamax) 50 mg PO BID [facility] Last Admin: 09/03/16 09:04 Dose: 50 mg Vitamin B Complex/Vit C/Folic Acid (Nephro-Ajay) 1 tab PO DAILY [facility] Last Admin: 09/03/16 09:03 Dose: 1 tab - Labs Labs: 09/03/16 04:15 09/03/16 04:15 PT 16.5 SECONDS (9.6-11.2) H 08/28/16 16:11 INR 1.59 (0.92-1.08) H 08/28/16 16:11 APTT 38.7 SECONDS (23.3-32.5) H 08/28/16 16:11 - Constitutional Appears: Non-toxic, No Acute Distress - Extremities Exam Additional comments: RLE exam: VASC- DP/PT pulses non-palpable, however w/ bedside doppler: dorsalis pedis and deep plantar artery of 1st interspace heard (biphasic), posterior tibial pulse also appreciated (biphasic) on 09/01, capillary refill < 5 sec to digits x 5, moderate 2+ pitting edema noted to anterior aspect of leg and dorsum of foot NEURO-gross pedal sensation is diminished DERM- superficial dry eschar noted to plantar aspect of heel, appears dry w/ no drainage on compression, no purulent drainage, no increased warmth, no local or ascending erythema. ORTHO- slight tenderness noted to deep palpation of calf/posterior leg, patient able to flex and extend all digits, severe varus deformity of ankle noted - Neurological Exam Neurological Exam: Alert, Awake, Oriented x3 - Psychiatric Exam Psychiatric exam: Normal Affect, Normal Mood Assessment and Plan - Assessment and Plan (Free Text) Assessment: 46 yo female patient w/ pmhx of HTN, ESRD (on dialysis), coagulopathy, DM, charcot right foot PVD admitted for sepsis, right heel ulceration, painful right posterior leg Plan: --Pt seen and evaluated in ICU w/ Dr. Pruett --Chart, labs, vitals reviewed: afebrile, WBC 15.2 today --Plan discussed in detail w/ Dr. Pruett --Venous duplex US (RLE): negative for DVT --Right foot x-ray: diffuse soft tissue swelling, severe neuropathic tiffanie changes. No evidence acute articular or osseous abnormality. --Blood cx: E. coli --Central line cath: E. coli --Right wound cx: E. coli --f/u arterial duplex --IV abx per ID Dr. Greenberg: amikican 250 qod, meropenem 500 mg qd, zosyn 2.25 gq12, linezolid 600 mg q12. --Pain meds per primary (dilaudid) --On eliquis 5 mg po bid --Tylenol for fever --Right foot dressing changed w/ DSD. Offloading prevalon boot to be applied to right heel at all times in bed. --Awaiting MRI of right lower extremity --Will continue to follow
[2016-09-03] MEDS: Albuterol-Ipratrop 3 mg / 0.5 (3 ml) UD INH PRN (15:40)
[2016-09-03] MEDS: Insulin Lispro (humaLOG) 100 Units/ml Inj SC SCH (16:30)
--- NOTE | 2016-09-03 18:24 | RAD ---
HISTORY: pneumonia, SOB COMPARISON: 09/01/2016 FINDINGS: The right central venous catheter terminates in the right atrium. LUNGS: There is mild pulmonary venous congestion. There is interval development of airspace disease in the right lower lobe. PLEURA: No significant pleural effusion identified, no pneumothorax apparent. CARDIOVASCULAR: Normal. OSSEOUS STRUCTURES: No significant abnormalities. VISUALIZED UPPER ABDOMEN: Normal. OTHER FINDINGS: None. IMPRESSION: Airspace disease in the right lower lobe could represent subsegmental atelectasis however superimposed pneumonia cannot be excluded. Follow-up after medical management is recommended to ensure complete resolution. Mild pulmonary venous congestion.
[2016-09-03 18:49] LABS: AMIKACIN 2.9 mg/L (see note)
[2016-09-03] MEDS: Albuterol 0.083% Inhal Sol (2.5 mg/3 mL) UD INH SCH (20:00)
[2016-09-03] MEDS: Acetylcysteine 10% 4 ML IH SCH (20:00)
--- NOTE | 2016-09-03 22:13 | CP.PCM.PN ---
Subjective - Date & Time of Evaluation Date of Evaluation: 09/03/16 Time of Evaluation: 17:00 - Subjective Subjective: PROBABLE OSTEOMYELITIS LEFT HEEL - awaiting MRI to be done today. If this is confirmed, then amputation is the preferred treatment according to Orthopedics. Otherwise she is doing better today, smiling, eating. Objective - Vital Signs/Intake and Output Vital Signs (last 24 hours): Temp Pulse Resp BP Pulse Ox 97.4 F L 123 H 21 143/75 94 L 09/03/16 20:00 09/03/16 20:00 09/03/16 20:00 09/03/16 20:00 09/03/16 16:00 - Medications Medications: Current Medications Acetaminophen (Tylenol 325mg Tab) 650 mg PO Q4 PRN PRN Reason: Fever >100.4 F Last Admin: 08/28/16 15:23 Dose: 650 mg Acetaminophen (Tylenol 325mg Tab) 650 mg PO Q4 PRN PRN Reason: Pain, moderate (4-7) Last Admin: 09/03/16 03:33 Dose: 650 mg Acetylcysteine (Mucomyst 10% 4ml) 2 ml IH RBID [facility] Last Admin: 09/03/16 20:00 Dose: Not Given Albuterol Sulfate (Albuterol 0.083% Inhal Barbie (2.5 Mg/3 Ml) Ud) 2.5 mg INH RBID [facility] Last Admin: 09/03/16 20:00 Dose: Not Given Albuterol/Ipratropium (Duoneb 3 Mg/0.5 Mg (3 Ml) Ud) 3 ml INH RQ4 PRN PRN Reason: Shortness of Breath Last Admin: 09/03/16 15:40 Dose: 3 ml Apixaban (Eliquis) 5 mg PO BID [facility] PRN Reason: Protocol Last Admin: 09/03/16 18:23 Dose: 5 mg Aspirin (Ecotrin) 81 mg PO DAILY [facility] Last Admin: 09/03/16 08:59 Dose: 81 mg Atorvastatin Calcium (Lipitor) 40 mg PO DAILY [facility] Last Admin: 09/03/16 09:02 Dose: 40 mg Cinacalcet (Sensipar) 30 mg PO DAILY [facility] Last Admin: 09/03/16 09:04 Dose: 30 mg Collagenase (Santyl) 1 applic TOP DAILY [facility] Last Admin: 09/03/16 09:04 Dose: 1 applic Docusate Sodium (Colace) 200 mg PO BID [facility] Last Admin: 09/03/16 18:16 Dose: Not Given Epoetin Tha (Procrit) 20,000 unit IV MWF [facility] Last Admin: 09/02/16 15:28 Dose: 20,000 unit Guaifenesin/Dextromethorphan (Robitussin Dm) 10 ml PO Q4 PRN PRN Reason: Cough Last Admin: 09/02/16 22:09 Dose: 10 ml Hydrocortisone (Anusol-Hc) 1 applic CA BID [facility] Last Admin: 09/03/16 18:16 Dose: Not Given Piperacillin Sod/Tazobactam (Sod 2.25 gm/ Sodium Chloride) 100 mls @ 100 mls/ hr IVPB Q12 [facility] Last Admin: 09/03/16 20:41 Dose: 100 mls/hr Linezolid (Zyvox 600mg/300ml D5w) 300 mls @ 300 mls/hr IVPB Q12 [facility] Last Admin: 09/03/16 20:42 Dose: 300 mls/hr Meropenem 500 mg/ Sodium (Chloride) 100 mls @ 100 mls/hr IVPB DAILY [facility] Last Admin: 09/03/16 09:02 Dose: 100 mls/hr Sodium Chloride (Sodium Chloride 0.9%) 250 mls @ 999 mls/hr IV .Q16M [facility] Last Admin: 08/30/16 05:36 Dose: 999 mls/hr Amikacin Sulfate 250 mg/ (Sodium Chloride) 101 mls @ 100.609 mls/hr IVPB [facility] Insulin Detemir (Levemir) 14 units SC HS [facility] Last Admin: 09/02/16 21:59 Dose: Not Given Insulin Human Lispro (Humalog) 3 units SC AC [facility] Last Admin: 09/03/16 16:30 Dose: 3 units Lidocaine (Lidoderm) 1 ea TD DAILY [facility] Last Admin: 09/03/16 09:01 Dose: Not Given Nystatin (Nystop Topical Powder) 1 applic TOP TID [facility] Last Admin: 09/03/16 16:32 Dose: 1 applic Ondansetron HCl (Zofran Inj) 4 mg IVP Q6 PRN PRN Reason: Nausea/Vomiting Last Admin: 09/02/16 12:11 Dose: 4 mg Pantoprazole Sodium (Protonix Inj) 40 mg IVP DAILY [facility] Last Admin: 09/03/16 09:03 Dose: 40 mg Promethazine HCl/Codeine (Phenergan/Codeine Oral Syrup) 5 ml PO Q6 PRN PRN Reason: Cough Last Admin: 09/03/16 16:27 Dose: 5 ml Sevelamer HCl (Renagel) 1,600 mg PO TID [facility] Last Admin: 09/03/16 16:34 Dose: 1,600 mg Topiramate (Topamax) 50 mg PO BID [facility] Last Admin: 09/03/16 18:25 Dose: 50 mg Vitamin B Complex/Vit C/Folic Acid (Nephro-Ajay) 1 tab PO DAILY [facility] Last Admin: 09/03/16 09:03 Dose: 1 tab - Labs Labs: 09/03/16 04:15 09/03/16 04:15 PT 16.5 SECONDS (9.6-11.2) H 08/28/16 16:11 INR 1.59 (0.92-1.08) H 08/28/16 16:11 APTT 38.7 SECONDS (23.3-32.5) H 08/28/16 16:11 Assessment and Plan (1) Diabetes Status: Chronic (2) ESRD (end stage renal disease) Status: Chronic (3) Cellulitis of leg Status: Acute (4) Hyperlipidemia Status: Acute (5) Back pain Status: Acute (6) Bacteremia due to Gram-negative bacteria Status: Acute (7) Diabetes mellitus type 2 with peripheral artery disease Status: Acute (8) PVD (peripheral vascular disease) Status: Acute
[2016-09-03] MEDS: Insulin Detemir 100 Units/ml Inj SC SCH (22:44)
[2016-09-04] MEDS ORDERED: Levalbuterol 0.63 MG/3 ML Inhal Soln UD INH ONE (05:13)
[2016-09-04 05:35] LABS: ALB/GLOB RATIO 0.7 (1.0-2.1); BILIRUBIN,TOTAL 0.6 mg/dl (0.2-1.3); MAGNESIUM 2.2 MG/DL (1.6-2.3); PHOSPHOROUS 4.2 mg/dl (2.5-4.5); POTASSIUM 3.8 MMOL/L (3.6-5.0)
--- NOTE | 2016-09-04 06:50 | CP.PCM.PN ---
Subjective - Date & Time of Evaluation Date of Evaluation: 09/04/16 Time of Evaluation: 07:00 - Subjective Subjective: PODIATRY PROGRESS NOTE FOR DR. EDWARDS: 46 yo female patient seen at bedside in ICU this morning for f/u right heel ulceration. Pt seen resting comfortably in bed. Denies fn/v/c/sob/cp at this time. Says right lower leg pain is still present however much improved, Denies any discomfort, numbness or tingling to the right foot/ankle. Said she was not able to tolerate the MRI yesterday, said she felt short of breath with "chest tightness" and felt better after returning to the floor. Denies any other problems at this time. Objective - Vital Signs/Intake and Output Vital Signs (last 24 hours): Temp Pulse Resp BP Pulse Ox 98.5 F 106 H 26 H 104/76 96 09/04/16 04:00 09/04/16 04:00 09/04/16 04:00 09/04/16 04:00 09/04/16 02:00 - Medications Medications: Current Medications Acetaminophen (Tylenol 325mg Tab) 650 mg PO Q4 PRN PRN Reason: Fever >100.4 F Last Admin: 08/28/16 15:23 Dose: 650 mg Acetaminophen (Tylenol 325mg Tab) 650 mg PO Q4 PRN PRN Reason: Pain, moderate (4-7) Last Admin: 09/03/16 03:33 Dose: 650 mg Acetylcysteine (Mucomyst 10% 4ml) 2 ml IH RBID [facility] Last Admin: 09/03/16 20:00 Dose: Not Given Albuterol Sulfate (Albuterol 0.083% Inhal Barbie (2.5 Mg/3 Ml) Ud) 2.5 mg INH RBID [facility] Last Admin: 09/03/16 20:00 Dose: Not Given Albuterol/Ipratropium (Duoneb 3 Mg/0.5 Mg (3 Ml) Ud) 3 ml INH RQ4 PRN PRN Reason: Shortness of Breath Last Admin: 09/03/16 15:40 Dose: 3 ml Apixaban (Eliquis) 5 mg PO BID [facility] PRN Reason: Protocol Last Admin: 09/03/16 18:23 Dose: 5 mg Aspirin (Ecotrin) 81 mg PO DAILY [facility] Last Admin: 09/03/16 08:59 Dose: 81 mg Atorvastatin Calcium (Lipitor) 40 mg PO DAILY [facility] Last Admin: 09/03/16 09:02 Dose: 40 mg Cinacalcet (Sensipar) 30 mg PO DAILY [facility] Last Admin: 09/03/16 09:04 Dose: 30 mg Collagenase (Santyl) 1 applic TOP DAILY [facility] Last Admin: 09/03/16 09:04 Dose: 1 applic Docusate Sodium (Colace) 200 mg PO BID [facility] Last Admin: 09/03/16 18:16 Dose: Not Given Epoetin Tha (Procrit) 20,000 unit IV MWF [facility] Last Admin: 09/02/16 15:28 Dose: 20,000 unit Guaifenesin/Dextromethorphan (Robitussin Dm) 10 ml PO Q4 PRN PRN Reason: Cough Last Admin: 09/02/16 22:09 Dose: 10 ml Hydrocortisone (Anusol-Hc) 1 applic [place] BID [facility] Last Admin: 09/03/16 18:16 Dose: Not Given Piperacillin Sod/Tazobactam (Sod 2.25 gm/ Sodium Chloride) 100 mls @ 100 mls/ hr IVPB Q12 [facility] Last Admin: 09/03/16 20:41 Dose: 100 mls/hr Linezolid (Zyvox 600mg/300ml D5w) 300 mls @ 300 mls/hr IVPB Q12 [facility] Last Admin: 09/03/16 20:42 Dose: 300 mls/hr Meropenem 500 mg/ Sodium (Chloride) 100 mls @ 100 mls/hr IVPB DAILY [facility] Last Admin: 09/03/16 09:02 Dose: 100 mls/hr Sodium Chloride (Sodium Chloride 0.9%) 250 mls @ 999 mls/hr IV .Q16M [facility] Last Admin: 08/30/16 05:36 Dose: 999 mls/hr Amikacin Sulfate 250 mg/ (Sodium Chloride) 101 mls @ 100.609 mls/hr [facility] Insulin Detemir (Levemir) 14 units SC HS [facility] Last Admin: 09/03/16 22:44 Dose: 14 u Insulin Human Lispro (Humalog) 3 units SC AC [facility] Last Admin: 09/03/16 16:30 Dose: 3 units Lidocaine (Lidoderm) 1 ea TD DAILY [facility] Last Admin: 09/03/16 09:01 Dose: Not Given Nystatin (Nystop Topical Powder) 1 applic TOP TID [facility] Last Admin: 09/03/16 16:32 Dose: 1 applic Ondansetron HCl (Zofran Inj) 4 mg IVP Q6 PRN PRN Reason: Nausea/Vomiting Last Admin: 09/02/16 12:11 Dose: 4 mg Pantoprazole Sodium (Protonix Inj) 40 mg IVP DAILY [facility] Last Admin: 09/03/16 09:03 Dose: 40 mg Promethazine HCl/Codeine (Phenergan/Codeine Oral Syrup) 5 ml PO Q6 PRN PRN Reason: Cough Last Admin: 09/03/16 16:27 Dose: 5 ml Sevelamer HCl (Renagel) 1,600 mg PO TID [facility] Last Admin: 09/03/16 16:34 Dose: 1,600 mg Topiramate (Topamax) 50 mg PO BID [facility] Last Admin: 09/03/16 18:25 Dose: 50 mg Vitamin B Complex/Vit C/Folic Acid (Nephro-Ajay) 1 tab PO DAILY [facility] Last Admin: 09/03/16 09:03 Dose: 1 tab - Labs Labs: 09/03/16 04:15 09/04/16 04:20 PT 16.5 SECONDS (9.6-11.2) H 08/28/16 16:11 INR 1.59 (0.92-1.08) H 08/28/16 16:11 APTT 38.7 SECONDS (23.3-32.5) H 08/28/16 16:11 - Constitutional Appears: Non-toxic, No Acute Distress - Extremities Exam Additional comments: RLE exam: VASC- DP/PT pulses non-palpable, however w/ bedside doppler: dorsalis pedis and deep plantar artery of 1st interspace heard (biphasic), posterior tibial pulse also appreciated (biphasic) on 09/01, capillary refill < 5 sec to digits x 5, moderate 2+ pitting edema noted to anterior aspect of leg and dorsum of foot NEURO-gross pedal sensation is diminished DERM- superficial dry eschar noted to plantar aspect of heel, appears dry w/ no drainage on compression, no purulence, no increased warmth, no local or ascending erythema. ORTHO- slight tenderness noted to distal posterior leg today, severe varus deformity of ankle noted - Neurological Exam Neurological Exam: Alert, Awake, Oriented x3 - Psychiatric Exam Psychiatric exam: Normal Affect, Normal Mood Assessment and Plan - Assessment and Plan (Free Text) Assessment: 46 yo female patient w/ pmhx of HTN, ESRD (on dialysis), coagulopathy, DM, charcot right foot PVD w/ stable dry eschar of right heel. Plan: -Pt S&E at bedside -Discussed plan w/ Dr. Pruett -Chart, labs, vitals reviewed: afebrile, WBC improving (14.8 today) -Right foot x-ray: (-) signs of osteomyelitis, however severe neuropathic changes seen -Dressing changed with DSD, multipodus boot reapplied -Discussed w/ surgery team: no plans for surgery at this time regarding right leg -c/w IV abx per ID -On eliquis per primary -Stable per podiatry -Pt unable to tolerate MRI -In lieu of MRI, recommend [facility] 3-phase bone scan (addition of Indium 111- WBC will differentiate between charcot neuropathic changes and osteo) -Will continue to follow
--- NOTE | 2016-09-04 07:24 | CP.CCUPN ---
<Bri Groves - Last Filed: 09/04/16 11:25> CCU Subjective - Physician Review Subjective (Free Text): 09/04/16 7:30 46 year old female with PMHx of ESRD on HD (3 times a week) , HTN, DM type 2, Protein C/ Protein S deficiency ,Severe PVD, chronic disease anemia was admitted for RLE cellulites transfer to ICU for code sepsis. Patient was seen and examined at bedside this morning. Patient is alert, awake and answers all the questions this morning. Patient was not able to do MRI due to Patient become SOB and desat O2 on yesterday. Patient complaints of worsening nonproductive cough since yesterday. Patient has afebrile, tachycardia with HR of 106 bpm, BP of 104/76 RR 26 and Sat O2 99 % on 2L O2 nasal cannula. Patient leukocytosis is improving and receiving amikacin, meropenem, zosyn and zyvox. Patient is schedule for dialysis today. Denies fever, SOB, chest pain, diarrhea, headache and dizziness. CCU Objective - Vital Signs / Intake & Output Vital Signs (Last 4 hours): Vital Signs Temp Pulse Resp BP 09/04/16 04:00 98.5 F 106 H 26 H 104/76 - Physical Exam Head: Positive for: Atraumatic, Normocephalic Pupils: Positive for: PERRL Pharnyx: Positive for: ERYTHEMA Neck: Positive for: Normal Range of Motion. Negative for: JVD Respiratory/Chest: Positive for: Wheezes (bibasilar), Other (Right SC dialysis catheter and PICC line on right arm). 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) Neurological: Positive for: Speech Normal, Other (Alert awake oriented x 3) Skin: Positive for: Warm, Normal Color Psychiatric: Positive for: Alert, Oriented x 3, Normal Insight, Normal Concentration - Medications Active Medications: Active Medications Generic Name Dose Route Start Last Admin Trade Name Freq PRN Reason Stop Dose Admin Acetaminophen 650 mg 08/28/16 00:09 08/28/16 15:23 Tylenol 325mg Tab PO 650 mg Q4 PRN Administration Fever >100.4 F Acetaminophen 650 mg 08/28/16 00:12 09/03/16 03:33 Tylenol 325mg Tab PO 650 mg Q4 PRN Administration Pain, moderate (4-7) Acetylcysteine 2 ml 09/03/16 20:00 09/03/16 20:00 Mucomyst 10% 4ml IH Not Given RBID JASPER Albuterol Sulfate 2.5 mg 09/03/16 20:00 09/03/16 20:00 Albuterol 0.083% Inhal Barbie (2.5 Mg/3 Ml) Ud INH Not Given RBID JASPER Albuterol/Ipratropium 3 ml 08/29/16 18:39 09/03/16 15:40 Duoneb 3 Mg/0.5 Mg (3 Ml) Ud INH 3 ml RQ4 PRN Administration Shortness of Breath Apixaban 5 mg 08/28/16 09:15 09/03/16 18:23 Eliquis PO 5 mg BID JASPER Administration Protocol Aspirin 81 mg 08/28/16 09:00 09/03/16 08:59 Ecotrin PO 81 mg DAILY JASPER Administration Atorvastatin Calcium 40 mg 08/28/16 09:00 09/03/16 09:02 Lipitor PO 40 mg DAILY JASPER Administration Cinacalcet 30 mg 08/28/16 11:15 09/03/16 09:04 Sensipar PO 30 mg DAILY JASPER Administration Collagenase 1 applic 08/28/16 09:00 09/03/16 09:04 Santyl TOP 1 applic DAILY JASPER Administration Docusate Sodium 200 mg 08/28/16 09:00 09/03/16 18:16 Colace PO Not Given BID JASPER Epoetin Tha 20,000 unit 09/02/16 09:00 09/02/16 15:28 Procrit IV 20,000 unit MWF JASPER Administration Guaifenesin/Dextromethorphan 10 ml 09/01/16 10:33 09/02/16 22:09 Robitussin Dm PO 10 ml Q4 PRN Administration Cough Hydrocortisone 1 applic 09/01/16 10:45 09/03/16 18:16 Anusol-Hc MS Not Given BID JASPER Piperacillin Sod/Tazobactam 100 mls @ 100 mls/hr 08/27/16 21:00 09/03/16 20: 41 Sod 2.25 gm/ Sodium Chloride IVPB 100 mls/hr Q12 JASPER Administration Linezolid 300 mls @ 300 mls/hr 08/27/16 21:00 09/03/16 20:42 Zyvox 600mg/300ml D5w IVPB 300 mls/hr Q12 JASPER Administration Meropenem 500 mg/ Sodium 100 mls @ 100 mls/hr 08/29/16 09:00 09/03/16 09:02 Chloride IVPB 100 mls/hr DAILY JASPER Administration Sodium Chloride 250 mls @ 999 mls/hr 08/29/16 23:30 08/30/16 05:36 Sodium Chloride 0.9% IV 999 mls/hr .Q16M JASPER Administration Amikacin Sulfate 250 mg/ 101 mls @ 100.609 mls/hr 09/04/16 09:00 Sodium Chloride IVPB MWF [facility] Insulin Detemir 14 units 09/02/16 22:00 09/03/16 22:44 Levemir SC 14 u HS [facility] Administration Insulin Human Lispro 3 units 09/03/16 16:30 09/03/16 16:30 Humalog SC 3 units AC [facility] Administration Lidocaine 1 ea 08/29/16 13:30 09/03/16 09:01 Lidoderm TD Not Given DAILY [facility] Nystatin 1 applic 09/02/16 13:00 09/03/16 16:32 Nystop Topical Powder TOP 1 applic TID JASPER Administration Ondansetron HCl 4 mg 08/29/16 19:00 09/02/16 12:11 Zofran Inj IVP 4 mg Q6 PRN Administration Nausea/Vomiting Pantoprazole Sodium 40 mg 08/31/16 11:00 09/03/16 09:03 Protonix Inj IVP 40 mg DAILY JASPER Administration Promethazine HCl/Codeine 5 ml 09/03/16 14:48 09/03/16 16:27 Phenergan/Codeine Oral Syrup PO 5 ml Q6 PRN Administration Cough Sevelamer HCl 1,600 mg 08/28/16 11:11 09/03/16 16:34 Renagel PO 1,600 mg TID JASPER Administration Topiramate 50 mg 08/30/16 18:45 09/03/16 18:25 Topamax PO 50 mg BID JASPER Administration Vitamin B Complex/Vit C/Folic Acid 1 tab 08/28/16 09:00 09/03/16 09:03 Nephro-Ajay PO 1 tab DAILY JASPER Administration - Patient Studies Lab Studies: Microbiology Studies 08/27/16 20:09 Gram Stain - Final Foot - Right Wound Culture - Final Escherichia Coli 08/29/16 10:51 Blood Culture - Final Blood NO GROWTH AFTER 5 DAYS Gram Stain - Final TEST NOT PERFORMED 08/31/16 09:23 Blood Culture - Preliminary Blood NO GROWTH AFTER 3 DAYS Lab Studies 09/04/16 09/04/16 09/03/16 Range/Units 04:46 04:20 22:41 WBC (4.8-10.8) K/uL RBC (3.80-5.20) Mil/uL Hgb (12.0-16.0) g/dL Hct (34.0-47.0) % MCV (81.0-99.0) fl MCH (27.0-31.0) pg MCHC (33.0-37.0) g/dL RDW (11.5-14.5) % Plt Count (130-400) K/uL Sodium 138 (132-148) mmol/l Potassium 3.8 (3.6-5.0) MMOL/L Chloride 95 L (98-107) mmol/L Carbon Dioxide 25 (22-30) mmol/L Anion Gap 22 H (10-20) BUN 30 H (7-17) mg/dl Creatinine 6.8 H (0.7-1.2) mg/dL Est GFR ( Amer) 8 Est GFR (Non-Af Amer) 7 POC Glucose (mg/dL) 255 H 300 H (65-110) mg/dL Random Glucose 243 H (65-105) mg/dL Calcium 8.0 L (8.4-10.2) mg/dL Phosphorus 4.2 (2.5-4.5) mg/dl Magnesium 2.2 (1.6-2.3) MG/DL Total Bilirubin 0.6 (0.2-1.3) mg/dl AST 40 H (14-36) U/L ALT 35 (9-52) U/L Alkaline Phosphatase 154 H (38-126) U/L Troponin I (0.00-0.120) ng/mL Total Protein 7.0 (6.3-8.2) G/DL Albumin 2.9 L (3.5-5.0) g/dL Globulin 4.1 H (2.2-3.9) gm/dL Albumin/Globulin Ratio 0.7 L (1.0-2.1) Amikacin (see note) mg/L C. difficile Ag & Toxin (NEGATIVE) 09/03/16 09/03/16 09/03/16 Range/Units 16:28 16:15 11:00 WBC (4.8-10.8) K/uL RBC (3.80-5.20) Mil/uL Hgb (12.0-16.0) g/dL Hct (34.0-47.0) % MCV (81.0-99.0) fl MCH (27.0-31.0) pg MCHC (33.0-37.0) g/dL RDW (11.5-14.5) % Plt Count (130-400) K/uL Sodium (132-148) mmol/l Potassium (3.6-5.0) MMOL/L Chloride (98-107) mmol/L Carbon Dioxide (22-30) mmol/L Anion Gap (10-20) BUN (7-17) mg/dl Creatinine (0.7-1.2) mg/dL Est GFR ( Amer) Est GFR (Non-Af Amer) POC Glucose (mg/dL) 232 H 135 H (65-110) mg/dL Random Glucose (65-105) mg/dL Calcium (8.4-10.2) mg/dL Phosphorus (2.5-4.5) mg/dl Magnesium (1.6-2.3) MG/DL Total Bilirubin (0.2-1.3) mg/dl AST (14-36) U/L ALT (9-52) U/L Alkaline Phosphatase (38-126) U/L Troponin I 0.4280 H* (0.00-0.120) ng/mL Total Protein (6.3-8.2) G/DL Albumin (3.5-5.0) g/dL Globulin (2.2-3.9) gm/dL Albumin/Globulin Ratio (1.0-2.1) Amikacin (see note) mg/L C. difficile Ag & Toxin (NEGATIVE) 09/03/16 09/03/16 09/03/16 Range/Units 06:30 04:15 04:15 WBC 15.2 H (4.8-10.8) K/uL RBC 3.13 L (3.80-5.20) Mil/uL Hgb 9.2 L (12.0-16.0) g/dL Hct 28.8 L (34.0-47.0) % MCV 92.0 (81.0-99.0) fl MCH 29.4 (27.0-31.0) pg MCHC 31.9 L (33.0-37.0) g/dL RDW 20.8 H (11.5-14.5) % Plt Count 201 (130-400) K/uL Sodium 137 (132-148) mmol/l Potassium 3.6 (3.6-5.0) MMOL/L Chloride 95 L (98-107) mmol/L Carbon Dioxide 27 (22-30) mmol/L Anion Gap 19 (10-20) BUN 19 H (7-17) mg/dl Creatinine 4.8 H (0.7-1.2) mg/dL Est GFR ( Amer) 12 Est GFR (Non-Af Amer) 10 POC Glucose (mg/dL) 104 (65-110) mg/dL Random Glucose 70 (65-105) mg/dL Calcium 8.1 L (8.4-10.2) mg/dL Phosphorus (2.5-4.5) mg/dl Magnesium (1.6-2.3) MG/DL Total Bilirubin 0.7 (0.2-1.3) mg/dl AST 48 H (14-36) U/L ALT 44 (9-52) U/L Alkaline Phosphatase 161 H (38-126) U/L Troponin I (0.00-0.120) ng/mL Total Protein 7.2 (6.3-8.2) G/DL Albumin 3.0 L (3.5-5.0) g/dL Globulin 4.2 H (2.2-3.9) gm/dL Albumin/Globulin Ratio 0.7 L (1.0-2.1) Amikacin (see note) mg/L C. difficile Ag & Toxin (NEGATIVE) 09/02/16 08/31/16 Range/Units 22:20 17:03 WBC (4.8-10.8) K/uL RBC (3.80-5.20) Mil/uL Hgb (12.0-16.0) g/dL Hct (34.0-47.0) % MCV (81.0-99.0) fl MCH (27.0-31.0) pg MCHC (33.0-37.0) g/dL RDW (11.5-14.5) % Plt Count (130-400) K/uL Sodium (132-148) mmol/l Potassium (3.6-5.0) MMOL/L Chloride (98-107) mmol/L Carbon Dioxide (22-30) mmol/L Anion Gap (10-20) BUN (7-17) mg/dl Creatinine (0.7-1.2) mg/dL Est GFR ( Amer) Est GFR (Non-Af Amer) POC Glucose (mg/dL) (65-110) mg/dL Random Glucose (65-105) mg/dL Calcium (8.4-10.2) mg/dL Phosphorus (2.5-4.5) mg/dl Magnesium (1.6-2.3) MG/DL Total Bilirubin (0.2-1.3) mg/dl AST (14-36) U/L ALT (9-52) U/L Alkaline Phosphatase (38-126) U/L Troponin I (0.00-0.120) ng/mL Total Protein (6.3-8.2) G/DL Albumin (3.5-5.0) g/dL Globulin (2.2-3.9) gm/dL Albumin/Globulin Ratio (1.0-2.1) Amikacin 2.9 (see note) mg/L C. difficile Ag & Toxin Negative (NEGATIVE) Laboratory Results - last 24 hr 08/31/16 09/02/16 09/03/16 17:03 22:20 04:15 WBC 15.2 H RBC 3.13 L Hgb 9.2 L Hct 28.8 L MCV 92.0 MCH 29.4 MCHC 31.9 L RDW 20.8 H Plt Count 201 Sodium Potassium Chloride Carbon Dioxide Anion Gap BUN Creatinine Est GFR ( Amer) Est GFR (Non-Af Amer) POC Glucose (mg/dL) Random Glucose Calcium Phosphorus Magnesium Total Bilirubin AST ALT Alkaline Phosphatase Troponin I Total Protein Albumin Globulin Albumin/Globulin Ratio Amikacin 2.9 C. difficile Ag & Toxin Negative 09/03/16 09/03/16 09/03/16 04:15 06:30 11:00 WBC RBC Hgb Hct MCV MCH MCHC RDW Plt Count Sodium 137 Potassium 3.6 Chloride 95 L Carbon Dioxide 27 Anion Gap 19 BUN 19 H Creatinine 4.8 H Est GFR ( Amer) 12 Est GFR (Non-Af Amer) 10 POC Glucose (mg/dL) 104 135 H Random Glucose 70 Calcium 8.1 L Phosphorus Magnesium Total Bilirubin 0.7 AST 48 H ALT 44 Alkaline Phosphatase 161 H Troponin I Total Protein 7.2 Albumin 3.0 L Globulin 4.2 H Albumin/Globulin Ratio 0.7 L Amikacin C. difficile Ag & Toxin 09/03/16 09/03/16 09/03/16 16:15 16:28 22:41 WBC RBC Hgb Hct MCV MCH MCHC RDW Plt Count Sodium Potassium Chloride Carbon Dioxide Anion Gap BUN Creatinine Est GFR ( Amer) Est GFR (Non-Af Amer) POC Glucose (mg/dL) 232 H 300 H Random Glucose Calcium Phosphorus Magnesium Total Bilirubin AST ALT Alkaline Phosphatase Troponin I 0.4280 H* Total Protein Albumin Globulin Albumin/Globulin Ratio Amikacin C. difficile Ag & Toxin 09/04/16 09/04/16 04:20 04:46 WBC RBC Hgb Hct MCV MCH MCHC RDW Plt Count Sodium 138 Potassium 3.8 Chloride 95 L Carbon Dioxide 25 Anion Gap 22 H BUN 30 H Creatinine 6.8 H Est GFR ( Amer) 8 Est GFR (Non-Af Amer) 7 POC Glucose (mg/dL) 255 H Random Glucose 243 H Calcium 8.0 L Phosphorus 4.2 Magnesium 2.2 Total Bilirubin 0.6 AST 40 H ALT 35 Alkaline Phosphatase 154 H Troponin I Total Protein 7.0 Albumin 2.9 L Globulin 4.1 H Albumin/Globulin Ratio 0.7 L Amikacin C. difficile Ag & Toxin Fingerstick Blood Sugar Results: 300 Critical Care Progress Note - Nutrition Nutrition: Nutrition Category Date Time Status Renal Diet [DIET] Diets 08/30/16 Dinner Active Assessment/Plan (1) Sepsis associated hypotension Current Visit: Yes Status: Acute Comment: -improved with BP, afebrile and still tachy but better 110's -etiology probable to osteomyelitis -off pressor -trending down leukocytosis 15.2->14.8 -right foot wound culture showed E.Coli sensitivity to all the medication (2016) -blood culture and permacath blood showed E.Coli ( 08/27/2016), 2x blood culture negative -continue with zosyn, zyvox and meropenem -monitor cbc and vitals (2) Ulcer of right foot Current Visit: Yes Status: Acute Comment: -Cellulitis of leg and ulceration with right foot -etiology possible osteomyelitis ? -wound culture showed E.Coli -continue with zosyn. 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 Although there is atherosclerotic disease distally flow documented in the popliteal artery and posterior tibial artery. Nondiagnostic assessment right dorsalis pedis artery. Nonvisualization right anterior tibial artery. - unable to get MRI -order 3 phase bone scan today (3) Pneumonia Current Visit: No Status: Acute Comment: -afebrile -improving leukocytosis -chest xray showed Stable infiltrates right lower lobe. No new/ acute findings. No new/acute findings apparent. -multiple coverage antibiotic -duoneb q6h PRN -pulomonary PT (4) ESRD (end stage renal disease) on dialysis Current Visit: No Status: Chronic Comment: -HD (MWF) and HD today -HD on MWF -BUN/Cr:30/6.8 -continue with renagel 1600mg TID and sensipar 30mg daily. -monitor BMP -renal diet (5) Hyperlipidemia Current Visit: Yes Status: Acute Comment: -continue with lipitor (6) PVD (peripheral vascular disease) Current Visit: Yes Status: Acute Comment: -continue with eliquis -continue with lipitor (7) Diabetes mellitus type 2 with peripheral artery disease Current Visit: Yes Status: Acute Comment: -uncontrolled -HgA1C: 11 -monitor only bmp not accucheck -continue with humalog but hold detemir for now -Endo is on board (8) Coagulopathy Current Visit: No Status: Chronic Comment: -hx of Protein C & S deficiency and heparin antibodies -continue with eliquis (9) DVT prophylaxis Current Visit: Yes Status: Acute Comment: -hx of protein c and S deficiency -continue with eliquis <Jose Bojorquez - Last Filed: 09/04/16 23:26> CCU Subjective - Physician Review Subjective (Free Text): Attestation: Patient seen and examined at the bedside with Resident Dr. Ella Groves; and I agree with her outline of plans and management documented below as discussed on AM rounds reflecting my review of all applicable clinical data, and participation in the care of the patient throughout the day in ICU; today, September 04, 2016.
[2016-09-04] MEDS: Santyl Collagenase OINTMENT TOP SCH (08:00)
--- NOTE | 2016-09-04 08:00 | CP.PCM.PN ---
<Tabatha Servin - Last Filed: 09/04/16 07:57> Subjective - Date & Time of Evaluation Date of Evaluation: 09/04/16 Time of Evaluation: 07:40 - Subjective Subjective: General Surgery Progress Note 46 yo female patient seen and evaluated at bedside concerning possible right LE osteomyelitis. Pt feels overall pain, discomfort, and feeling of chills/fever have greatly improved. Denies recent n/v/sob/cp. Denies any other complaints at this time. Objective - Vital Signs/Intake and Output Vital Signs (last 24 hours): Temp Pulse Resp BP Pulse Ox 98.5 F 106 H 26 H 104/76 96 09/04/16 04:00 09/04/16 04:00 09/04/16 04:00 09/04/16 04:00 09/04/16 02:00 - Medications Medications: Current Medications Acetaminophen (Tylenol 325mg Tab) 650 mg PO Q4 PRN PRN Reason: Fever >100.4 F Last Admin: 08/28/16 15:23 Dose: 650 mg Acetaminophen (Tylenol 325mg Tab) 650 mg PO Q4 PRN PRN Reason: Pain, moderate (4-7) Last Admin: 09/03/16 03:33 Dose: 650 mg Acetylcysteine (Mucomyst 10% 4ml) 2 ml IH RBID [facility] Last Admin: 09/03/16 20:00 Dose: Not Given Albuterol Sulfate (Albuterol 0.083% Inhal Barbie (2.5 Mg/3 Ml) Ud) 2.5 mg INH RBID [facility] Last Admin: 09/03/16 20:00 Dose: Not Given Albuterol/Ipratropium (Duoneb 3 Mg/0.5 Mg (3 Ml) Ud) 3 ml INH RQ4 PRN PRN Reason: Shortness of Breath Last Admin: 09/03/16 15:40 Dose: 3 ml Apixaban (Eliquis) 5 mg PO BID [facility] PRN Reason: Protocol Last Admin: 09/03/16 18:23 Dose: 5 mg Aspirin (Ecotrin) 81 mg PO DAILY [facility] Last Admin: 09/03/16 08:59 Dose: 81 mg Atorvastatin Calcium (Lipitor) 40 mg PO DAILY [facility] Last Admin: 09/03/16 09:02 Dose: 40 mg Cinacalcet (Sensipar) 30 mg PO DAILY [facility] Last Admin: 09/03/16 09:04 Dose: 30 mg Collagenase (Santyl) 1 applic TOP DAILY [facility] Last Admin: 09/03/16 09:04 Dose: 1 applic Docusate Sodium (Colace) 200 mg PO BID [facility] Last Admin: 09/03/16 18:16 Dose: Not Given Epoetin Tha (Procrit) [facility] Last Admin: 09/02/16 15:28 Dose: 20,000 unit Guaifenesin/Dextromethorphan (Robitussin Dm) 10 ml PO Q4 PRN PRN Reason: Cough Last Admin: 09/02/16 22:09 Dose: 10 ml Hydrocortisone (Anusol-Hc) 1 applic AL BID [facility] Last Admin: 09/03/16 18:16 Dose: Not Given Piperacillin Sod/Tazobactam (Sod 2.25 gm/ Sodium Chloride) 100 mls @ 100 mls/ hr IVPB Q12 [facility] Last Admin: 09/03/16 20:41 Dose: 100 mls/hr Linezolid (Zyvox 600mg/300ml D5w) 300 mls @ 300 mls/hr IVPB Q12 [facility] Last Admin: 09/03/16 20:42 Dose: 300 mls/hr Meropenem 500 mg/ Sodium (Chloride) 100 mls @ 100 mls/hr IVPB DAILY [facility] Last Admin: 09/03/16 09:02 Dose: 100 mls/hr Sodium Chloride (Sodium Chloride 0.9%) 250 mls @ 999 mls/hr IV .Q16M [facility] Last Admin: 08/30/16 05:36 Dose: 999 mls/hr Amikacin Sulfate 250 mg/ (Sodium Chloride) 101 mls @ 100.609 mls/hr IVPB [facility] [place] Insulin Detemir (Levemir) 14 units SC HS [facility] Last Admin: 09/03/16 22:44 Dose: 14 u Insulin Human Lispro (Humalog) 3 units SC AC [facility] Last Admin: 09/03/16 16:30 Dose: 3 units Lidocaine (Lidoderm) 1 ea TD DAILY [facility] Last Admin: 09/03/16 09:01 Dose: Not Given Nystatin (Nystop Topical Powder) 1 applic TOP TID [facility] Last Admin: 09/03/16 16:32 Dose: 1 applic Ondansetron HCl (Zofran Inj) 4 mg IVP Q6 PRN PRN Reason: Nausea/Vomiting Last Admin: 09/02/16 12:11 Dose: 4 mg Pantoprazole Sodium (Protonix Inj) 40 mg IVP DAILY [facility] Last Admin: 09/03/16 09:03 Dose: 40 mg Promethazine HCl/Codeine (Phenergan/Codeine Oral Syrup) 5 ml PO Q6 PRN PRN Reason: Cough Last Admin: 09/03/16 16:27 Dose: 5 ml Sevelamer HCl (Renagel) 1,600 mg PO TID [facility] Last Admin: 09/03/16 16:34 Dose: 1,600 mg Topiramate (Topamax) 50 mg PO BID [facility] Last Admin: 09/03/16 18:25 Dose: 50 mg Vitamin B Complex/Vit C/Folic Acid (Nephro-Ajay) 1 tab PO DAILY [facility] Last Admin: 09/03/16 09:03 Dose: 1 tab - Labs Labs: 09/03/16 04:15 09/04/16 04:20 PT 16.5 SECONDS (9.6-11.2) H 08/28/16 16:11 INR 1.59 (0.92-1.08) H 08/28/16 16:11 APTT 38.7 SECONDS (23.3-32.5) H 08/28/16 16:11 - Constitutional Appears: Well, Non-toxic, No Acute Distress - Respiratory Exam Respiratory Exam: NORMAL BREATHING PATTERN. absent: Chest Wall Tenderness, Decreased Breath Sounds - GI/Abdominal Exam GI & Abdominal Exam: Soft. absent: Guarding, Rigid - Extremities Exam Additional comments: Right severe varus deformity of ankle. Slight tenderness noted to deep palpation of calf/posterior leg. Right heel necrotic echar, absent drainage, erythema of other acute signs of infection. - Neurological Exam Neurological Exam: Alert, Awake, Oriented x3 - Psychiatric Exam Psychiatric exam: Normal Affect, Normal Mood Assessment and Plan - Assessment and Plan (Free Text) Assessment: 46 yo female patient w/ pmhx of HTN, ESRD (on dialysis), coagulopathy, DM, charcot right foot PVD 1) sepsis 2) right heel ulceration, Charcot Arhtropathy and potential Calcaneal OM. Plan: Pt S&E. Labs reviewed and evaluated. - Discussed with Podiatry attending Dr. Gordon, consensus reached that Lower extremity wound is not source of infection, radiographs show no evidence of OM. Poor prognosis and detriment to quality of life would produce likely risk to life s/p potential BKA amputation. - No surgery indicated at this time. General Surgery is signing off. Please re- consult as needed. - <Enmanuel Villarreal - Last Filed: 09/04/16 10:26> Subjective - Date & Time of Evaluation Time of Evaluation: 10:10 - Subjective Subjective: Patient was seen and examined at the bedside. Objective - Vital Signs/Intake and Output Vital Signs (last 24 hours): Temp Pulse Resp BP Pulse Ox 98.6 F 100 H 14 119/70 100 09/04/16 08:00 09/04/16 08:00 09/04/16 08:00 09/04/16 08:00 09/04/16 08:00 Intake and Output: 09/04/16 09/04/16 06:59 18:59 Intake Total 300 Balance 300 - Medications Medications: Current Medications Acetaminophen (Tylenol 325mg Tab) 650 mg PO Q4 PRN PRN Reason: Fever >100.4 F Last Admin: 08/28/16 15:23 Dose: 650 mg Acetaminophen (Tylenol 325mg Tab) 650 mg PO Q4 PRN PRN Reason: Pain, moderate (4-7) Last Admin: 09/03/16 03:33 Dose: 650 mg Acetylcysteine (Mucomyst 10% 4ml) 2 ml IH RBID [facility] Last Admin: 09/04/16 08:38 Dose: 2 ml Albuterol Sulfate (Albuterol 0.083% Inhal Barbie (2.5 Mg/3 Ml) Ud) 2.5 mg INH RBID [facility] Last Admin: 09/04/16 08:38 Dose: 2.5 mg Albuterol/Ipratropium (Duoneb 3 Mg/0.5 Mg (3 Ml) Ud) 3 ml INH RQ4 PRN PRN Reason: Shortness of Breath Last Admin: 09/03/16 15:40 Dose: 3 ml Apixaban (Eliquis) 5 mg PO BID [facility] PRN Reason: Protocol Last Admin: 09/04/16 09:33 Dose: 5 mg Aspirin (Ecotrin) 81 mg PO DAILY [facility] Last Admin: 09/04/16 09:33 Dose: 81 mg Atorvastatin Calcium (Lipitor) 40 mg PO DAILY [facility] Last Admin: 09/04/16 09:36 Dose: 40 mg Cinacalcet (Sensipar) 30 mg PO DAILY [facility] Last Admin: 09/04/16 09:38 Dose: 30 mg Collagenase (Santyl) 1 applic TOP DAILY [facility] Last Admin: 09/04/16 08:00 Dose: 1 applic Docusate Sodium (Colace) 200 mg PO BID [facility] Last Admin: 09/04/16 09:32 Dose: 200 mg Epoetin Tha (Procrit) [facility] Last Admin: 09/02/16 15:28 Dose: 20,000 unit Guaifenesin/Dextromethorphan (Robitussin Dm) 10 ml PO Q4 PRN PRN Reason: Cough Last Admin: 09/02/16 22:09 Dose: 10 ml Hydrocortisone (Anusol-Hc) 1 applic AL BID [facility] Last Admin: 09/04/16 09:45 Dose: Not Given Piperacillin Sod/Tazobactam (Sod 2.25 gm/ Sodium Chloride) 100 mls @ 100 mls/ hr IVPB Q12 [facility] Last Admin: 09/03/16 20:41 Dose: 100 mls/hr Linezolid (Zyvox 600mg/300ml D5w) 300 mls @ 300 mls/hr IVPB Q12 [facility] Last Admin: 09/03/16 20:42 Dose: 300 mls/hr Meropenem 500 mg/ Sodium (Chloride) 100 mls @ 100 mls/hr IVPB DAILY [facility] Last Admin: 09/03/16 09:02 Dose: 100 mls/hr Sodium Chloride (Sodium Chloride 0.9%) 250 mls @ 999 mls/hr IV .Q16M [facility] Last Admin: 08/30/16 05:36 Dose: 999 mls/hr Amikacin Sulfate 250 mg/ (Sodium Chloride) 101 mls @ 100.609 mls/hr IVPB [facility] [place] Insulin Detemir (Levemir) 14 units SC HS [facility] Last Admin: 09/03/16 22:44 Dose: 14 u Insulin Human Lispro (Humalog) 3 units SC AC [facility] Last Admin: 09/04/16 08:15 Dose: 3 units Lidocaine (Lidoderm) 1 ea TD DAILY [facility] Last Admin: 09/04/16 09:34 Dose: 1 ea Nystatin (Nystop Topical Powder) 1 applic TOP TID [facility] Last Admin: 09/04/16 09:37 Dose: Not Given Ondansetron HCl (Zofran Inj) 4 mg IVP Q6 PRN PRN Reason: Nausea/Vomiting Last Admin: 09/02/16 12:11 Dose: 4 mg Pantoprazole Sodium (Protonix Inj) 40 mg IVP DAILY [facility] Last Admin: 09/04/16 09:38 Dose: 40 mg Promethazine HCl/Codeine (Phenergan/Codeine Oral Syrup) 5 ml PO Q6 PRN PRN Reason: Cough Last Admin: 09/03/16 16:27 Dose: 5 ml Sevelamer HCl (Renagel) 1,600 mg PO TID [facility] Last Admin: 09/04/16 09:38 Dose: 1,600 mg Topiramate (Topamax) 50 mg PO BID [facility] Last Admin: 09/04/16 09:39 Dose: 50 mg Vitamin B Complex/Vit C/Folic Acid (Nephro-Ajay) 1 tab PO DAILY [facility] Last Admin: 09/04/16 09:36 Dose: 1 tab - Labs Labs: 09/04/16 08:07 09/04/16 04:20 PT 16.5 SECONDS (9.6-11.2) H 08/28/16 16:11 INR 1.59 (0.92-1.08) H 08/28/16 16:11 APTT 38.7 SECONDS (23.3-32.5) H 08/28/16 16:11 Assessment and Plan - Assessment and Plan (Free Text) Plan: - Continue antibiotics as per ID - MRI of the right lower extremity - Repeat labs in am - Will follow
[2016-09-04] MEDS: Insulin Lispro (humaLOG) 100 Units/ml Inj SC SCH ×3 (08:15→17:03)
[2016-09-04 08:17] LABS: BASO # 0.1 K/uL (0.0-0.2); BASO % 0.5 % (0.0-2.0); EOS # 0.3 K/uL (0.0-0.7); HEMATOCRIT 28.5 % (34.0-47.0); LYMPH % 6.9 % (20.0-40.0); MEAN CELL VOLUME 91.9 fl (81.0-99.0); MEAN CORPUSCULAR HEMOGLOBIN 29.4 pg (27.0-31.0); MEAN PLATELET VOLUME 10.1 fl (7.2-11.7); MONO # 1.6 K/uL (0.0-0.8); MONO % 10.8 % (0.0-10.0); NEUT # 11.8 K/uL (1.8-7.0); NEUT % 79.8 % (50.0-75.0); RED CELL DISTRIBUTION WIDTH 20.6 % (11.5-14.5); WHITE BLOOD COUNT 14.8 K/uL (4.8-10.8)
[2016-09-04] MEDS: Acetylcysteine 10% 4 ML IH SCH ×2 (08:38→20:00)
[2016-09-04] MEDS: Albuterol 0.083% Inhal Sol (2.5 mg/3 mL) UD INH SCH ×2 (08:38→20:00)
--- NOTE | 2016-09-04 08:47 | CARD ---
APPROVED REPORT EKG Measurement Heart [id number] IN 128P [id number] <Conclusion> Sinus tachycardia ??? Arm lead reversal Abnormal ECG Please repeat
[2016-09-04] MEDS: Lidocaine 5% Patch TD SCH (09:34)
[2016-09-04] MEDS: Multivitamin Vitamin B Complex (Nephro-Vite) Tab PO SCH (09:36)
[2016-09-04] MEDS: Hydrocortisone 2.5% (Rectal) CREAM PR SCH ×2 (09:45→17:03)
--- NOTE | 2016-09-04 09:59 | CP.PCM.PN ---
Subjective - Date & Time of Evaluation Date of Evaluation: 09/04/16 Time of Evaluation: 09:40 - Subjective Subjective: Clinically unchanged Afebrile Getting dialysed now HR 105 BPM, sinus BP 110/70 mm Hg No overt CHF Pulse Ox >98% on O2 supplement Today's EKG Sinus rhythm with resolving ST elevations seen 5-6 days back No new Q waves ?? Plans re. Lt foot Sx Objective - Vital Signs/Intake and Output Vital Signs (last 24 hours): Temp Pulse Resp BP Pulse Ox 98.5 F 106 H 26 H 104/76 96 09/04/16 04:00 09/04/16 04:00 09/04/16 04:00 09/04/16 04:00 09/04/16 02:00 - Medications Medications: Current Medications Acetaminophen (Tylenol 325mg Tab) 650 mg PO Q4 PRN PRN Reason: Fever >100.4 F Last Admin: 08/28/16 15:23 Dose: 650 mg Acetaminophen (Tylenol 325mg Tab) 650 mg PO Q4 PRN PRN Reason: Pain, moderate (4-7) Last Admin: 09/03/16 03:33 Dose: 650 mg Acetylcysteine (Mucomyst 10% 4ml) 2 ml IH RBID [facility] Last Admin: 09/04/16 08:38 Dose: 2 ml Albuterol Sulfate (Albuterol 0.083% Inhal Barbie (2.5 Mg/3 Ml) Ud) 2.5 mg INH RBID [facility] Last Admin: 09/04/16 08:38 Dose: 2.5 mg Albuterol/Ipratropium (Duoneb 3 Mg/0.5 Mg (3 Ml) Ud) 3 ml INH RQ4 PRN PRN Reason: Shortness of Breath Last Admin: 09/03/16 15:40 Dose: 3 ml Apixaban (Eliquis) 5 mg PO BID [facility] PRN Reason: Protocol Last Admin: 09/04/16 09:33 Dose: 5 mg Aspirin (Ecotrin) 81 mg PO DAILY [facility] Last Admin: 09/04/16 09:33 Dose: 81 mg Atorvastatin Calcium (Lipitor) 40 mg PO DAILY [facility] Last Admin: 09/04/16 09:36 Dose: 40 mg Cinacalcet (Sensipar) 30 mg PO DAILY [facility] Last Admin: 09/04/16 09:38 Dose: 30 mg Collagenase (Santyl) 1 applic TOP DAILY [facility] Last Admin: 09/04/16 08:00 Dose: 1 applic Docusate Sodium (Colace) 200 mg PO BID [facility] Last Admin: 09/04/16 09:32 Dose: 200 mg Epoetin Tha (Procrit) [facility] Last Admin: 09/02/16 15:28 Dose: 20,000 unit Guaifenesin/Dextromethorphan (Robitussin Dm) 10 ml PO Q4 PRN PRN Reason: Cough Last Admin: 09/02/16 22:09 Dose: 10 ml Hydrocortisone (Anusol-Hc) 1 applic [place] BID [facility] Last Admin: 09/04/16 09:45 Dose: Not Given Piperacillin Sod/Tazobactam (Sod 2.25 gm/ Sodium Chloride) 100 mls @ 100 mls/ hr IVPB Q12 [facility] Last Admin: 09/03/16 20:41 Dose: 100 mls/hr Linezolid (Zyvox 600mg/300ml D5w) 300 mls @ 300 mls/hr IVPB Q12 [facility] Last Admin: 09/03/16 20:42 Dose: 300 mls/hr Meropenem 500 mg/ Sodium (Chloride) 100 mls @ 100 mls/hr IVPB DAILY [facility] Last Admin: 09/03/16 09:02 Dose: 100 mls/hr Sodium Chloride (Sodium Chloride 0.9%) 250 mls @ 999 mls/hr IV .Q16M [facility] Last Admin: 08/30/16 05:36 Dose: 999 mls/hr Amikacin Sulfate 250 mg/ (Sodium Chloride) 101 mls @ 100.609 mls/hr IVPB [facility] [place] Insulin Detemir (Levemir) 14 units SC HS [facility] Last Admin: 09/03/16 22:44 Dose: 14 u Insulin Human Lispro (Humalog) 3 units SC AC [facility] Last Admin: 09/04/16 08:15 Dose: 3 units Lidocaine (Lidoderm) 1 ea TD DAILY [facility] Last Admin: 09/04/16 09:34 Dose: 1 ea Nystatin (Nystop Topical Powder) 1 applic TOP TID [facility] Last Admin: 09/04/16 09:37 Dose: Not Given Ondansetron HCl (Zofran Inj) 4 mg IVP Q6 PRN PRN Reason: Nausea/Vomiting Last Admin: 09/02/16 12:11 Dose: 4 mg Pantoprazole Sodium (Protonix Inj) 40 mg IVP DAILY [facility] Last Admin: 09/04/16 09:38 Dose: 40 mg Promethazine HCl/Codeine (Phenergan/Codeine Oral Syrup) 5 ml PO Q6 PRN PRN Reason: Cough Last Admin: 09/03/16 16:27 Dose: 5 ml Sevelamer HCl (Renagel) 1,600 mg PO TID [facility] Last Admin: 09/04/16 09:38 Dose: 1,600 mg Topiramate (Topamax) 50 mg PO BID [facility] Last Admin: 09/04/16 09:39 Dose: 50 mg Vitamin B Complex/Vit C/Folic Acid (Nephro-Ajay) 1 tab PO DAILY [facility] Last Admin: 09/04/16 09:36 Dose: 1 tab - Labs Labs: 09/04/16 08:07 09/04/16 04:20 PT 16.5 SECONDS (9.6-11.2) H 08/28/16 16:11 INR 1.59 (0.92-1.08) H 08/28/16 16:11 APTT 38.7 SECONDS (23.3-32.5) H 08/28/16 16:11
[2016-09-04] MEDS: Epoetin Alfa 20000 UNIT/ML Inj IV SCH (10:55)
--- NOTE | 2016-09-04 11:07 | CP.PCM.PN ---
Subjective - Date & Time of Evaluation Date of Evaluation: 09/04/16 Time of Evaluation: 11:06 - Subjective Subjective: Instructed on proper use of CPT device. Aerosol therapy ongoing. Today's CXR is essentially unchanged from prior film. Comfortable with congested cough, but feeling better. Objective - Vital Signs/Intake and Output Vital Signs (last 24 hours): Temp Pulse Resp BP Pulse Ox 98.6 F 100 H 14 119/70 100 09/04/16 08:00 09/04/16 08:00 09/04/16 08:00 09/04/16 08:00 09/04/16 08:00 Intake and Output: 09/03/16 09/04/16 23:59 11:59 Intake Total 300 Balance 300 - Medications Medications: Current Medications Acetaminophen (Tylenol 325mg Tab) 650 mg PO Q4 PRN PRN Reason: Fever >100.4 F Last Admin: 08/28/16 15:23 Dose: 650 mg Acetaminophen (Tylenol 325mg Tab) 650 mg PO Q4 PRN PRN Reason: Pain, moderate (4-7) Last Admin: 09/03/16 03:33 Dose: 650 mg Acetylcysteine (Mucomyst 10% 4ml) 2 ml IH RBID [facility] Last Admin: 09/04/16 08:38 Dose: 2 ml Albuterol Sulfate (Albuterol 0.083% Inhal Barbie (2.5 Mg/3 Ml) Ud) 2.5 mg INH RBID [facility] Last Admin: 09/04/16 08:38 Dose: 2.5 mg Albuterol/Ipratropium (Duoneb 3 Mg/0.5 Mg (3 Ml) Ud) 3 ml INH RQ4 PRN PRN Reason: Shortness of Breath Last Admin: 09/03/16 15:40 Dose: 3 ml Apixaban (Eliquis) 5 mg PO BID [facility] PRN Reason: Protocol Last Admin: 09/04/16 09:33 Dose: 5 mg Aspirin (Ecotrin) 81 mg PO DAILY [facility] Last Admin: 09/04/16 09:33 Dose: 81 mg Atorvastatin Calcium (Lipitor) 40 mg PO DAILY [facility] Last Admin: 09/04/16 09:36 Dose: 40 mg Cinacalcet (Sensipar) 30 mg PO DAILY [facility] Last Admin: 09/04/16 09:38 Dose: 30 mg Collagenase (Santyl) 1 applic TOP DAILY [facility] Last Admin: 09/04/16 08:00 Dose: 1 applic Docusate Sodium (Colace) 200 mg PO BID [facility] Last Admin: 09/04/16 09:32 Dose: 200 mg Epoetin [facility]a (Procrit) [facility] Last Admin: 09/04/16 10:55 Dose: 20,000 unit Guaifenesin/Dextromethorphan (Robitussin Dm) 10 ml PO Q4 PRN PRN Reason: Cough Last Admin: 09/02/16 22:09 Dose: 10 ml Hydrocortisone (Anusol-Hc) 1 applic [place] BID [facility] Last Admin: 09/04/16 09:45 Dose: Not Given Piperacillin Sod/Tazobactam (Sod 2.25 gm/ Sodium Chloride) 100 mls @ 100 mls/ hr IVPB Q12 [facility] Last Admin: 09/03/16 20:41 Dose: 100 mls/hr Linezolid (Zyvox 600mg/300ml D5w) 300 mls @ 300 mls/hr IVPB Q12 [facility] Last Admin: 09/03/16 20:42 Dose: 300 mls/hr Meropenem 500 mg/ Sodium (Chloride) 100 mls @ 100 mls/hr IVPB DAILY [facility] Last Admin: 09/03/16 09:02 Dose: 100 mls/hr Sodium Chloride (Sodium Chloride 0.9%) 250 mls @ 999 mls/hr IV .Q16M [facility] Last Admin: 08/30/16 05:36 Dose: 999 mls/hr Amikacin Sulfate 250 mg/ (Sodium Chloride) 101 mls @ 100.609 mls/hr IVPB [facility] [place] Insulin Detemir (Levemir) 14 units SC HS [facility] Last Admin: 09/03/16 22:44 Dose: 14 u Insulin Human Lispro (Humalog) 3 units SC AC [facility] Last Admin: 09/04/16 08:15 Dose: 3 units Lidocaine (Lidoderm) 1 ea TD DAILY [facility] Last Admin: 09/04/16 09:34 Dose: 1 ea Nystatin (Nystop Topical Powder) 1 applic TOP TID [facility] Last Admin: 09/04/16 09:37 Dose: Not Given Ondansetron HCl (Zofran Inj) 4 mg IVP Q6 PRN PRN Reason: Nausea/Vomiting Last Admin: 09/02/16 12:11 Dose: 4 mg Pantoprazole Sodium (Protonix Inj) 40 mg IVP DAILY [facility] Last Admin: 09/04/16 09:38 Dose: 40 mg Promethazine HCl/Codeine (Phenergan/Codeine Oral Syrup) 5 ml PO Q6 PRN PRN Reason: Cough Last Admin: 09/03/16 16:27 Dose: 5 ml Sevelamer HCl (Renagel) 1,600 mg PO TID [facility] Last Admin: 09/04/16 09:38 Dose: 1,600 mg Topiramate (Topamax) 50 mg PO BID [facility] Last Admin: 09/04/16 09:39 Dose: 50 mg Vitamin B Complex/Vit C/Folic Acid (Nephro-Ajay) 1 tab PO DAILY [facility] Last Admin: 09/04/16 09:36 Dose: 1 tab - Labs Labs: 09/04/16 08:07 09/04/16 04:20 PT 16.5 SECONDS (9.6-11.2) H 08/28/16 16:11 INR 1.59 (0.92-1.08) H 08/28/16 16:11 APTT 38.7 SECONDS (23.3-32.5) H 08/28/16 16:11
--- NOTE | 2016-09-04 11:34 | CP.PCM.PN ---
Subjective - Date & Time of Evaluation Date of Evaluation: 09/04/16 Time of Evaluation: 11:31 - Subjective Subjective: Seen on hemodialysis now Patient tolerating hemodialysis very well Pulse rate around 107 No chills or fever Ultrafiltration about 2500 mL as tolerated I reviewed that dialysis order and data with the dialysis nurse at the bedside Potassium bath 3 mEq EPO to be given post hemodialysis White count coming down slowly Impression and plan Overall she is improving and doing much better Patient appeared to be getting out of septic shock And also the planning underway for the right heel perhaps bone scan Continue IV antibiotics as planned Objective - Vital Signs/Intake and Output Vital Signs (last 24 hours): Temp Pulse Resp BP Pulse Ox 98.6 F 107 H 24 102/54 L 100 09/04/16 08:00 09/04/16 10:00 09/04/16 10:00 09/04/16 10:00 09/04/16 08:00 Intake and Output: 09/04/16 09/04/16 06:59 18:59 Intake Total 400 Balance 400 - Medications Medications: Current Medications Acetaminophen (Tylenol 325mg Tab) 650 mg PO Q4 PRN PRN Reason: Fever >100.4 F Last Admin: 08/28/16 15:23 Dose: 650 mg Acetaminophen (Tylenol 325mg Tab) 650 mg PO Q4 PRN PRN Reason: Pain, moderate (4-7) Last Admin: 09/03/16 03:33 Dose: 650 mg Acetylcysteine (Mucomyst 10% 4ml) 2 ml IH RBID [facility] Last Admin: 09/04/16 08:38 Dose: 2 ml Albuterol Sulfate (Albuterol 0.083% Inhal Barbie (2.5 Mg/3 Ml) Ud) 2.5 mg INH RBID [facility] Last Admin: 09/04/16 08:38 Dose: 2.5 mg Albuterol/Ipratropium (Duoneb 3 Mg/0.5 Mg (3 Ml) Ud) 3 ml INH RQ4 PRN PRN Reason: Shortness of Breath Last Admin: 09/03/16 15:40 Dose: 3 ml Apixaban (Eliquis) 5 mg PO BID [facility] PRN Reason: Protocol Last Admin: 09/04/16 09:33 Dose: 5 mg Aspirin (Ecotrin) 81 mg PO DAILY [facility] Last Admin: 09/04/16 09:33 Dose: 81 mg Atorvastatin Calcium (Lipitor) 40 mg PO DAILY [facility] Last Admin: 09/04/16 09:36 Dose: 40 mg Cinacalcet (Sensipar) 30 mg PO DAILY [facility] Last Admin: 09/04/16 09:38 Dose: 30 mg Collagenase (Santyl) 1 applic TOP DAILY [facility] Last Admin: 09/04/16 08:00 Dose: 1 applic Docusate Sodium (Colace) 200 mg PO BID [facility] Last Admin: 09/04/16 09:32 Dose: 200 mg Epoetin Tha (Procrit) 20,000 unit IV MWF [facility] Last Admin: 09/04/16 10:55 Dose: 20,000 unit Guaifenesin/Dextromethorphan (Robitussin Dm) 10 ml PO Q4 PRN PRN Reason: Cough Last Admin: 09/02/16 22:09 Dose: 10 ml Hydrocortisone (Anusol-Hc) 1 applic [place] BID [facility] Last Admin: 09/04/16 09:45 Dose: Not Given Piperacillin Sod/Tazobactam (Sod 2.25 gm/ Sodium Chloride) 100 mls @ 100 mls/ hr IVPB Q12 [facility] Last Admin: 09/03/16 20:41 Dose: 100 mls/hr Linezolid (Zyvox 600mg/300ml D5w) 300 mls @ 300 mls/hr IVPB Q12 [facility] Last Admin: 09/03/16 20:42 Dose: 300 mls/hr Meropenem 500 mg/ Sodium (Chloride) 100 mls @ 100 mls/hr IVPB DAILY [facility] Last Admin: 09/03/16 09:02 Dose: 100 mls/hr Sodium Chloride (Sodium Chloride 0.9%) 250 mls @ 999 mls/hr IV .Q16M [facility] Last Admin: 08/30/16 05:36 Dose: 999 mls/hr Amikacin Sulfate 250 mg/ (Sodium Chloride) 101 mls @ 100.609 mls/hr IVPB [facility] Insulin Detemir (Levemir) 14 units SC HS [facility] Last Admin: 09/03/16 22:44 Dose: 14 u Insulin Human Lispro (Humalog) 3 units SC AC [facility] Last Admin: 09/04/16 08:15 Dose: 3 units Lidocaine (Lidoderm) 1 ea TD DAILY [facility] Last Admin: 09/04/16 09:34 Dose: 1 ea Nystatin (Nystop Topical Powder) 1 applic TOP TID [facility] Last Admin: 09/04/16 09:37 Dose: Not Given Ondansetron HCl (Zofran Inj) 4 mg IVP Q6 PRN PRN Reason: Nausea/Vomiting Last Admin: 09/02/16 12:11 Dose: 4 mg Pantoprazole Sodium (Protonix Inj) 40 mg IVP DAILY [facility] Last Admin: 09/04/16 09:38 Dose: 40 mg Promethazine HCl/Codeine (Phenergan/Codeine Oral Syrup) 5 ml PO Q6 PRN PRN Reason: Cough Last Admin: 09/03/16 16:27 Dose: 5 ml Sevelamer HCl (Renagel) 1,600 mg PO TID [facility] Last Admin: 09/04/16 09:38 Dose: 1,600 mg Topiramate (Topamax) 50 mg PO BID [facility] Last Admin: 09/04/16 09:39 Dose: 50 mg Vitamin B Complex/Vit C/Folic Acid (Nephro-Ajay) 1 tab PO DAILY [facility] Last Admin: 09/04/16 09:36 Dose: 1 tab - Labs Labs: 09/04/16 08:07 09/04/16 04:20 PT 16.5 SECONDS (9.6-11.2) H 08/28/16 16:11 INR 1.59 (0.92-1.08) H 08/28/16 16:11 APTT 38.7 SECONDS (23.3-32.5) H 08/28/16 16:11 - Constitutional Appears: No Acute Distress - Respiratory Exam Respiratory Exam: NORMAL BREATHING PATTERN. absent: Chest Wall Tenderness - Cardiovascular Exam Cardiovascular Exam: RRR. absent: Rubs - GI/Abdominal Exam GI & Abdominal Exam: absent: Guarding - Extremities Exam Extremities Exam: absent: Calf Tenderness - Back Exam Back Exam: absent: CVA tenderness (L), CVA tenderness (R) - Neurological Exam Neurological Exam: Alert Assessment and Plan (1) ESRD (end stage renal disease) Status: Chronic (2) Cellulitis of leg Status: Acute
--- NOTE | 2016-09-04 12:18 | RAD ---
HISTORY: pneumonia COMPARISON: 09/03/2016 FINDINGS: LUNGS: Previous identified opacity at right base is no longer evident. Possible transient atelectasis. No infiltrate elsewhere. PLEURA: Unremarkable CARDIOVASCULAR: No congestive change. Right tunneled central venous dialysis catheter. OSSEOUS STRUCTURES: No significant abnormalities. VISUALIZED UPPER ABDOMEN: Normal. OTHER FINDINGS: None. IMPRESSION: No acute abnormality.
[2016-09-04] MEDS: Linezolid 600 mg in D5W 300 ml 300 ML IVPB SCH ×2 (14:00→21:13)
[2016-09-04] MEDS: Meropenem 500 MG in Sodium Chloride 0.9% 100 ML IVPB SCH (15:00)
--- NOTE | 2016-09-04 16:38 | PN ---
DATE: 09/04/2016 ROOM: 433 SUBJECTIVE: This is a 46-year-old female with recent uncontrolled type 2 insulin-requiring diabetes presenting here with right leg cellulitis and supervening marked hyperglycemic accelerations and is n ow being followed closely for metabolic management. She also had recent hypoglycemia over the last 2 4 hours because of very poor and suboptimal oral intake which has already improved overnight as noted . Her glycemic levels today have ranged from 183-191 and 255 mg/dL. Her latest chemistries include a BUN of 30, sodium 138, potassium 3.8, chloride 95, CO2 of 25, glucose 243 and creatinine 6.8. So, at this time, we will modify her basal and bolus insulin regimen and increase the Humalog to 6 units subQ t.i.d. before meals to start today as ordered. We will also increase the basal insulin to 16 un its subQ at bedtime daily to start tonight. We will titrate incrementally as indicated to optimize m etabolic control. She is scheduled for MRI of the right foot to rule out any underlying osteomyeliti s at this time. She is being managed with multiple IV antibiotics for gram-negative bacteremia as no minal. We will follow and advise accordingly. Irene Ambrose MD cc: [phone] TT: 09/04/2016 16:38:30 Confirmation # [id number] Dictation # [id number] tn
--- NOTE | 2016-09-04 16:57 | CP.PCM.PN ---
Subjective - Date & Time of Evaluation Date of Evaluation: 09/04/16 Time of Evaluation: 16:48 - Subjective Subjective: I D NOTE PATIENTs WBC IS 14 FOLLOWUP BLOOD CULTURES ARE NEGATIVE ALERT TODAY DISCUSSED CASE C EARLIER AND THAT PATIENT NEEDS A VASCUIAR EVALUATION IF WE ARE TO CONSIDER BKA AT PRESENT THERE IS COSIDERATION OF ARTERIORGRAM FOR FRIDAY PENDING REVIEW BY JANN/SOCO/LIVE NO CHANGE IN ANTIBIOTIC RX Objective - Vital Signs/Intake and Output Vital Signs (last 24 hours): Temp Pulse Resp BP Pulse Ox 98.2 F 110 H 16 107/67 100 09/04/16 11:54 09/04/16 14:00 09/04/16 14:00 09/04/16 14:00 09/04/16 14:00 Intake and Output: 09/04/16 09/04/16 06:59 18:59 Intake Total 1150 Output Total 2500 Balance -1350 - Medications Medications: Current Medications Acetaminophen (Tylenol 325mg Tab) 650 mg PO Q4 PRN PRN Reason: Fever >100.4 F Last Admin: 08/28/16 15:23 Dose: 650 mg Acetaminophen (Tylenol 325mg Tab) 650 mg PO Q4 PRN PRN Reason: Pain, moderate (4-7) Last Admin: 09/03/16 03:33 Dose: 650 mg Acetylcysteine (Mucomyst 10% 4ml) 2 ml IH RBID [facility] Last Admin: 09/04/16 08:38 Dose: 2 ml Albuterol Sulfate (Albuterol 0.083% Inhal Barbie (2.5 Mg/3 Ml) Ud) 2.5 mg INH RBID [facility] Last Admin: 09/04/16 08:38 Dose: 2.5 mg Albuterol/Ipratropium (Duoneb 3 Mg/0.5 Mg (3 Ml) Ud) 3 ml INH RQ4 PRN PRN Reason: Shortness of Breath Last Admin: 09/03/16 15:40 Dose: 3 ml Apixaban (Eliquis) 5 mg PO BID [facility] PRN Reason: Protocol Last Admin: 09/04/16 09:33 Dose: 5 mg Aspirin (Ecotrin) 81 mg PO DAILY [facility] Last Admin: 09/04/16 09:33 Dose: 81 mg Atorvastatin Calcium (Lipitor) 40 mg PO DAILY [facility] Last Admin: 09/04/16 09:36 Dose: 40 mg Benzonatate (Tessalon Perles) 200 mg PO TID PRN PRN Reason: Cough Cinacalcet (Sensipar) 30 mg PO DAILY [facility] Last Admin: 09/04/16 09:38 Dose: 30 mg Collagenase (Santyl) 1 applic TOP DAILY [facility] Last Admin: 09/04/16 08:00 Dose: 1 applic Docusate Sodium (Colace) 200 mg PO BID [facility] Last Admin: 09/04/16 09:32 Dose: 200 mg Epoetin Tha (Procrit) 20,000 unit IV MWF [facility] Last Admin: 09/04/16 10:55 Dose: 20,000 unit Guaifenesin/Dextromethorphan (Robitussin Dm) 10 ml PO Q4 PRN PRN Reason: Cough Last Admin: 09/02/16 22:09 Dose: 10 ml Hydrocortisone (Anusol-Hc) [address] B[address] [facility] Last Admin: 09/04/16 09:45 Dose: Not Given Piperacillin Sod/Tazobactam (Sod 2.25 gm/ Sodium Chloride) 100 mls @ 100 mls/ hr IVPB Q12 [facility] Last Admin: 09/04/16 13:06 Dose: 100 mls/hr Linezolid (Zyvox 600mg/300ml D5w) 300 mls @ 300 mls/hr IVPB Q12 [facility] Last Admin: 09/04/16 14:00 Dose: 300 mls/hr Meropenem 500 mg/ Sodium (Chloride) 100 mls @ 100 mls/hr IVPB DAILY [facility] Last Admin: 09/03/16 09:02 Dose: 100 mls/hr Sodium Chloride (Sodium Chloride 0.9%) 250 mls @ 999 mls/hr IV .Q16M [facility] Last Admin: 08/30/16 05:36 Dose: 999 mls/hr Amikacin Sulfate 250 mg/ (Sodium Chloride) 101 mls @ 100.609 mls/hr IVPB MWF [facility] Last Admin: 09/04/16 14:00 Dose: 100.609 mls/hr Insulin Detemir (Levemir) 16 units SC HS [facility] Insulin Human Lispro (Humalog) 6 units SC AC [facility] Lidocaine (Lidoderm) 1 ea TD DAILY [facility] Last Admin: 09/04/16 09:34 Dose: 1 ea Nystatin (Nystop Topical Powder) 1 applic TOP TID [facility] Last Admin: 09/04/16 14:00 Dose: 1 applic Ondansetron HCl (Zofran Inj) 4 mg IVP Q6 PRN PRN Reason: Nausea/Vomiting Last Admin: 09/02/16 12:11 Dose: 4 mg Pantoprazole Sodium (Protonix Inj) 40 mg IVP DAILY [facility] Last Admin: 09/04/16 09:38 Dose: 40 mg Sevelamer HCl (Renagel) 1,600 mg PO TID [facility] Last Admin: 09/04/16 13:05 Dose: 1,600 mg Topiramate (Topamax) 50 mg PO BID [facility] Last Admin: 09/04/16 09:39 Dose: 50 mg Vitamin B Complex/Vit C/Folic Acid (Nephro-Ajay) 1 tab PO DAILY [facility] Last Admin: 09/04/16 09:36 Dose: 1 tab - Labs Labs: 09/04/16 08:07 09/04/16 04:20 PT 16.5 SECONDS (9.6-11.2) H 08/28/16 16:11 INR 1.59 (0.92-1.08) H 08/28/16 16:11 APTT 38.7 SECONDS (23.3-32.5) H 08/28/16 16:11
--- NOTE | 2016-09-04 20:08 | CP.PCM.PN ---
Subjective - Date & Time of Evaluation Date of Evaluation: 09/04/16 Time of Evaluation: 19:59 - Subjective Subjective: Discussions held with Drs. Lemon, Reno, Germain, Juma, Andrew Shepard regarding right heel infection (documented E. Coli). Also Dr. Lemon relayed Dr. Pastrana' evaluation and request for arteriogram. Podiatry does not believe the heel is the source of infection... Patient is afebrile, glucoses well controlled (just at 182), and follow-up blood cultures are negative on 4 antibiotics. Pneumonia is resolving with additional pulmonarty treatments ordered by Dr. Flores. So, in order to move things along I have agreed to and discussed the following plan: 3 phase bone scan attn right leg/foot - to be done tomorrow MRI of right lower leg/ankle/fooe - hopefully to be done tomorrow - patient may need 0.5 mg Ativan in order to tolerate this due to anxiety arteriogram right lower leg - to be done Friday morning. Dr. Guadarrama will arrange for hemodialysis on Friday afternoon. Dr. Andrew Shepard has advised us to hold the Eliquis starting tomorrow, but we may continue the aspirin After the arteriogram is complete, care must be taken to compress the artery for at least 15 min so as to prevent bleed/hematomal Once this is done then the general surgeons and podiatric surgeons will be able to discuss their conlusions and make their recommendations. Objective - Vital Signs/Intake and Output Vital Signs (last 24 hours): Temp Pulse Resp BP Pulse Ox 98.2 F 113 H 29 H 133/52 L 100 09/04/16 16:00 09/04/16 18:00 09/04/16 18:00 09/04/16 18:00 09/04/16 18:00 Intake and Output: 09/04/16 09/05/16 18:59 06:59 Intake Total 1750 Output Total 2500 Balance -750 - Medications Medications: Current Medications Acetaminophen (Tylenol 325mg Tab) 650 mg PO Q4 PRN PRN Reason: Fever >100.4 F Last Admin: 08/28/16 15:23 Dose: 650 mg Acetaminophen (Tylenol 325mg Tab) 650 mg PO Q4 PRN PRN Reason: Pain, moderate (4-7) Last Admin: 09/03/16 03:33 Dose: 650 mg Acetylcysteine (Mucomyst 10% 4ml) 2 ml IH RBID [facility] Last Admin: 09/04/16 08:38 Dose: 2 ml Albuterol Sulfate (Albuterol 0.083% Inhal Barbie (2.5 Mg/3 Ml) Ud) 2.5 mg INH RBID [facility] Last Admin: 09/04/16 08:38 Dose: 2.5 mg Albuterol/Ipratropium (Duoneb 3 Mg/0.5 Mg (3 Ml) Ud) 3 ml INH RQ4 PRN PRN Reason: Shortness of Breath Last Admin: 09/03/16 15:40 Dose: 3 ml Apixaban (Eliquis) 5 mg PO BID [facility] PRN Reason: Protocol Last Admin: 09/04/16 17:03 Dose: 5 mg Aspirin (Ecotrin) 81 mg PO DAILY [facility] Last Admin: 09/04/16 09:33 Dose: 81 mg Atorvastatin Calcium (Lipitor) 40 mg PO DAILY [facility] Last Admin: 09/04/16 09:36 Dose: 40 mg Benzonatate (Tessalon Perles) 200 mg PO TID PRN PRN Reason: Cough Last Admin: 09/04/16 17:26 Dose: 200 mg Cinacalcet (Sensipar) 30 mg PO DAILY [facility] Last Admin: 09/04/16 09:38 Dose: 30 mg Collagenase (Santyl) 1 applic TOP DAILY [facility] Last Admin: 09/04/16 08:00 Dose: 1 applic Docusate Sodium (Colace) 200 mg PO BID [facility] Last Admin: 09/04/16 17:03 Dose: 200 mg Epoetin Tha (Procrit) 20,000 unit IV MWF [facility] Last Admin: 09/04/16 10:55 Dose: 20,000 unit Guaifenesin/Dextromethorphan (Robitussin Dm) 10 ml PO Q4 PRN PRN Reason: Cough Last Admin: 09/02/16 22:09 Dose: 10 ml Hydrocortisone (Anusol-Hc) 1 applic [place] BID [facility] Last Admin: 09/04/16 17:03 Dose: 1 applic Piperacillin Sod/Tazobactam (Sod 2.25 gm/ Sodium Chloride) 100 mls @ 100 mls/ hr IVPB Q12 [facility] Last Admin: 09/04/16 13:06 Dose: 100 mls/hr Linezolid (Zyvox 600mg/300ml D5w) 300 mls @ 300 mls/hr IVPB Q12 [facility] Last Admin: 09/04/16 14:00 Dose: 300 mls/hr Meropenem 500 mg/ Sodium (Chloride) 100 mls @ 100 mls/hr IVPB DAILY [facility] Last Admin: 09/04/16 15:00 Dose: 100 mls/hr Sodium Chloride (Sodium Chloride 0.9%) 250 mls @ 999 mls/hr IV .Q16M [facility] Last Admin: 08/30/16 05:36 Dose: 999 mls/hr Amikacin Sulfate 250 mg/ (Sodium Chloride) 101 mls @ 100.609 mls/hr IVPB MWF [facility] Last Admin: 09/04/16 14:00 Dose: 100.609 mls/hr Insulin Detemir (Levemir) 16 units SC HS [facility] Insulin Human Lispro (Humalog) 6 units SC AC [facility] Last Admin: 09/04/16 17:03 Dose: 6 units Lidocaine (Lidoderm) 1 ea TD DAILY [facility] Last Admin: 09/04/16 09:34 Dose: 1 ea Nystatin (Nystop Topical Powder) 1 applic TOP TID [facility] Last Admin: 09/04/16 17:05 Dose: 1 applic Ondansetron HCl (Zofran Inj) 4 mg IVP Q6 PRN PRN Reason: Nausea/Vomiting Last Admin: 09/02/16 12:11 Dose: 4 mg Pantoprazole Sodium (Protonix Inj) 40 mg IVP DAILY [facility] Last Admin: 09/04/16 09:38 Dose: 40 mg Sevelamer HCl (Renagel) 1,600 mg PO TID [facility] Last Admin: 09/04/16 17:05 Dose: 1,600 mg Topiramate (Topamax) 50 mg PO BID [facility] Last Admin: 09/04/16 17:06 Dose: 50 mg Vitamin B Complex/Vit C/Folic Acid (Nephro-Ajay) 1 tab PO DAILY [facility] Last Admin: 09/04/16 09:36 Dose: 1 tab - Labs Labs: 09/04/16 08:07 09/04/16 04:20 PT 16.5 SECONDS (9.6-11.2) H 08/28/16 16:11 INR 1.59 (0.92-1.08) H 08/28/16 16:11 APTT 38.7 SECONDS (23.3-32.5) H 08/28/16 16:11 - Constitutional Appears: No Acute Distress - Head Exam Head Exam: NORMAL INSPECTION - Eye Exam Eye Exam: Normal appearance - ENT Exam ENT Exam: Mucous Membranes Moist - Neck Exam Neck Exam: Normal Inspection Additional comments: R subclavian catheter intact and functioning well. - Respiratory Exam Respiratory Exam: Clear to Ausculation Bilateral - Cardiovascular Exam Cardiovascular Exam: REGULAR RHYTHM, +S1, +S2 - GI/Abdominal Exam GI & Abdominal Exam: Soft, Normal Bowel Sounds - Extremities Exam Additional comments: Unchanged. - Back Exam Back Exam: NORMAL INSPECTION - Neurological Exam Neurological Exam: Alert, Awake, CN II-XII Intact, Oriented x3 - Psychiatric Exam Psychiatric exam: Normal Affect - Skin Additional comments: Excoriations beneath breasts. And RLE as previously described. Assessment and Plan (1) ESRD (end stage renal disease) on dialysis Assessment & Plan: [email or web address] Status: Chronic (2) DM type 2 (diabetes mellitus, type 2) Assessment & Plan: SEE SUBJECTIVE Status: Chronic (3) Coagulopathy Assessment & Plan: SEE SUBJECTIVE Status: Chronic (4) Peripheral arterial occlusive disease Assessment & Plan: SEE SUBJECTIVE Status: Chronic (5) Ulcer of right heel Assessment & Plan: SEE SUBJECTIVE Status: Resolved (6) SIRS (systemic inflammatory response syndrome) Assessment & Plan: SEPSIS CONTROLLED ON 4 ANTIBIOTICS Status: Acute (7) Pneumonia Assessment & Plan: Due to atelectasis at both bases. Being managed by Dr. Flores, with good results. Status: Acute
[2016-09-04] MEDS ORDERED: Insulin Detemir 100 Units/ml Inj SC SCH (22:00)
--- NOTE | 2016-09-04 23:17 | CP.PCM.PN ---
Subjective - Date & Time of Evaluation Date of Evaluation: 09/04/16 Time of Evaluation: 20:00 - Subjective Subjective: No Pneumonia is seen on CXR repeat. Patient is more stable. No Syncopal spells on Topamax, less Anxiety than before. Normal V.S. Objective - Vital Signs/Intake and Output Vital Signs (last 24 hours): Temp Pulse Resp BP Pulse Ox 98.3 F 109 H 25 H 114/58 L 100 09/04/16 20:00 09/04/16 20:00 09/04/16 20:00 09/04/16 20:00 09/04/16 20:00 Intake and Output: 09/04/16 09/05/16 18:59 06:59 Intake Total 1750 Output Total 2500 Balance -750 - Medications Medications: Current Medications Acetaminophen (Tylenol 325mg Tab) 650 mg PO Q4 PRN PRN Reason: Fever >100.4 F Last Admin: 08/28/16 15:23 Dose: 650 mg Acetaminophen (Tylenol 325mg Tab) 650 mg PO Q4 PRN PRN Reason: Pain, moderate (4-7) Last Admin: 09/03/16 03:33 Dose: 650 mg Acetylcysteine (Mucomyst 10% 4ml) 2 ml IH RBID [facility] Last Admin: 09/04/16 20:00 Dose: Not Given Albuterol Sulfate (Albuterol 0.083% Inhal Barbie (2.5 Mg/3 Ml) Ud) 2.5 mg INH RBID [facility] Last Admin: 09/04/16 20:00 Dose: Not Given Albuterol/Ipratropium (Duoneb 3 Mg/0.5 Mg (3 Ml) Ud) 3 ml INH RQ4 PRN PRN Reason: Shortness of Breath Last Admin: 09/03/16 15:40 Dose: 3 ml Alteplase, Recombinant (Cathflo 2 Mg Inj) 2 mg IV ONCE ONE Stop: 09/04/16 23:03 Apixaban (Eliquis) 5 mg PO BID [facility] PRN Reason: Protocol Last Admin: 09/04/16 17:03 Dose: 5 mg Aspirin (Ecotrin) 81 mg PO DAILY [facility] Last Admin: 09/04/16 09:33 Dose: 81 mg Atorvastatin Calcium (Lipitor) 40 mg PO DAILY [facility] Last Admin: 09/04/16 09:36 Dose: 40 mg Benzonatate (Tessalon Perles) 200 mg PO TID PRN PRN Reason: Cough Last Admin: 09/04/16 17:26 Dose: 200 mg Cinacalcet (Sensipar) 30 mg PO DAILY [facility] Last Admin: 09/04/16 09:38 Dose: 30 mg Collagenase (Santyl) 1 applic TOP DAILY [facility] Last Admin: 09/04/16 08:00 Dose: 1 applic Docusate Sodium (Colace) 200 mg PO BID [facility] Last Admin: 09/04/16 17:03 Dose: 200 mg Epoetin Tha (Procrit) 20,000 unit IV MWF [facility] Last Admin: 09/04/16 10:55 Dose: 20,000 unit Guaifenesin/Dextromethorphan (Robitussin Dm) 10 ml PO Q4 PRN PRN Reason: Cough Last Admin: 09/02/16 22:09 Dose: 10 ml Hydrocortisone (Anusol-Hc) 1 applic ND BID [facility] Last Admin: 09/04/16 17:03 Dose: 1 applic Piperacillin Sod/Tazobactam (Sod 2.25 gm/ Sodium Chloride) 100 mls @ 100 mls/ hr IVPB Q12 [facility] Last Admin: 09/04/16 21:12 Dose: 100 mls/hr Linezolid (Zyvox 600mg/300ml D5w) 300 mls @ 300 mls/hr IVPB Q12 [facility] Last Admin: 09/04/16 21:13 Dose: 300 mls/hr Meropenem 500 mg/ Sodium (Chloride) 100 mls @ 100 mls/hr IVPB DAILY [facility] Last Admin: 09/04/16 15:00 Dose: 100 mls/hr Sodium Chloride (Sodium Chloride 0.9%) 250 mls @ 999 mls/hr IV .Q16M [facility] Last Admin: 08/30/16 05:36 Dose: 999 mls/hr Amikacin Sulfate 250 mg/ (Sodium Chloride) 101 mls @ 100.609 mls/hr IVPB MWF [facility] Last Admin: 09/04/16 14:00 Dose: 100.609 mls/hr Insulin Detemir (Levemir) 16 units SC HS [facility] Insulin Human Lispro (Humalog) 6 units SC AC [facility] Last Admin: 09/04/16 17:03 Dose: 6 units Lidocaine (Lidoderm) 1 ea TD DAILY [facility] Last Admin: 09/04/16 09:34 Dose: 1 ea Nystatin (Nystop Topical Powder) 1 applic TOP TID [facility] Last Admin: 09/04/16 17:05 Dose: 1 applic Ondansetron HCl (Zofran Inj) 4 mg IVP Q6 PRN PRN Reason: Nausea/Vomiting Last Admin: 09/02/16 12:11 Dose: 4 mg Pantoprazole Sodium (Protonix Inj) 40 mg IVP DAILY [facility] Last Admin: 09/04/16 09:38 Dose: 40 mg Sevelamer HCl (Renagel) 1,600 mg PO TID [facility] Last Admin: 09/04/16 17:05 Dose: 1,600 mg Topiramate (Topamax) 50 mg PO BID [facility] Last Admin: 09/04/16 17:06 Dose: 50 mg Vitamin B Complex/Vit C/Folic Acid (Nephro-Ajay) 1 tab PO DAILY [facility] Last Admin: 09/04/16 09:36 Dose: 1 tab - Labs Labs: 09/04/16 08:07 09/04/16 04:20 PT 16.5 SECONDS (9.6-11.2) H 08/28/16 16:11 INR 1.59 (0.92-1.08) H 08/28/16 16:11 APTT 38.7 SECONDS (23.3-32.5) H 08/28/16 16:11 Assessment and Plan (1) Diabetes Status: Chronic (2) ESRD (end stage renal disease) Status: Chronic (3) Cellulitis of leg Status: Acute (4) Hyperlipidemia Status: Acute (5) Back pain Status: Acute (6) Bacteremia due to Gram-negative bacteria Status: Acute (7) Diabetes mellitus type 2 with peripheral artery disease Status: Acute (8) PVD (peripheral vascular disease) Status: Acute
[2016-09-05] MEDS: Albuterol-Ipratrop 3 mg / 0.5 (3 ml) UD INH PRN (02:15)
--- NOTE | 2016-09-05 06:13 | CP.PCM.PN ---
Subjective - Date & Time of Evaluation Date of Evaluation: 09/05/16 Time of Evaluation: 02:45 - Subjective Subjective: PODIATRY PROGRESS NOTE FOR DR. EDWARDS: 46 yo female patient seen at bedside in ICU regarding ulceration of right heel. Pt seen resting comfortably in bed at time of visit. Per nurse pt has just returned to the unit from MRI which she was able to tolerated today. Pt appears less lethargic today, states that she does feel a little better. Denies f/n/v/c/ sob/cp at this time. Denies any pain or discomfort to the right foot today, says the leg pain is much more comfortable. Sleeping and appetite have improved. Still reports cough. Objective - Vital Signs/Intake and Output Vital Signs (last 24 hours): Temp Pulse Resp BP Pulse Ox 98.7 F 116 H 14 121/70 100 09/05/16 00:00 09/05/16 02:00 09/05/16 02:00 09/05/16 02:00 09/05/16 02:00 Intake and Output: 09/04/16 09/05/16 18:59 06:59 Intake Total 1750 Output Total 2500 Balance -750 - Medications Medications: Current Medications Acetaminophen (Tylenol 325mg Tab) 650 mg PO Q4 PRN PRN Reason: Fever >100.4 F Last Admin: 08/28/16 15:23 Dose: 650 mg Acetaminophen (Tylenol 325mg Tab) 650 mg PO Q4 PRN PRN Reason: Pain, moderate (4-7) Last Admin: 09/03/16 03:33 Dose: 650 mg Acetylcysteine (Mucomyst 10% 4ml) 2 ml IH RBID [facility] Last Admin: 09/04/16 20:00 Dose: Not Given Albuterol Sulfate (Albuterol 0.083% Inhal Barbie (2.5 Mg/3 Ml) Ud) 2.5 mg INH RBID [facility] Last Admin: 09/04/16 20:00 Dose: Not Given Albuterol/Ipratropium (Duoneb 3 Mg/0.5 Mg (3 Ml) Ud) 3 ml INH RQ4 PRN PRN Reason: Shortness of Breath Last Admin: 09/05/16 02:15 Dose: 3 ml Apixaban (Eliquis) 5 mg PO BID [facility] PRN Reason: Protocol Last Admin: 09/04/16 17:03 Dose: 5 mg Aspirin (Ecotrin) 81 mg PO DAILY [facility] Last Admin: 09/04/16 09:33 Dose: 81 mg Atorvastatin Calcium (Lipitor) 40 mg PO DAILY [facility] Last Admin: 09/04/16 09:36 Dose: 40 mg Benzonatate (Tessalon Perles) 200 mg PO TID PRN PRN Reason: Cough Last Admin: 09/05/16 02:16 Dose: 200 mg Cinacalcet (Sensipar) 30 mg PO DAILY [facility] Last Admin: 09/04/16 09:38 Dose: 30 mg Collagenase (Santyl) 1 applic TOP DAILY [facility] Last Admin: 09/04/16 08:00 Dose: 1 applic Docusate Sodium (Colace) 200 mg PO BID [facility] Last Admin: 09/04/16 17:03 Dose: 200 mg Epoetin Tha (Procrit) 20,000 unit IV [facility] Last Admin: 09/04/16 10:55 Dose: 20,000 unit Guaifenesin/Dextromethorphan (Robitussin Dm) 10 ml PO Q4 PRN PRN Reason: Cough Last Admin: 09/02/16 22:09 Dose: 10 ml Hydrocortisone (Anusol-Hc) 1 applic [place] BID [facility] Last Admin: 09/04/16 17:03 Dose: 1 applic Piperacillin Sod/Tazobactam (Sod 2.25 gm/ Sodium Chloride) 100 mls @ 100 mls/ hr IVPB Q12 [facility] Last Admin: 09/04/16 21:12 Dose: 100 mls/hr Linezolid (Zyvox 600mg/300ml D5w) 300 mls @ 300 mls/hr IVPB Q12 [facility] Last Admin: 09/04/16 21:13 Dose: 300 mls/hr Meropenem 500 mg/ Sodium (Chloride) 100 mls @ 100 mls/hr IVPB DAILY [facility] Last Admin: 09/04/16 15:00 Dose: 100 mls/hr Sodium Chloride (Sodium Chloride 0.9%) 250 mls @ 999 mls/hr IV .Q16M [facility] Last Admin: 08/30/16 05:36 Dose: 999 mls/hr Amikacin Sulfate 250 mg/ (Sodium Chloride) 101 mls @ 100.609 mls/hr IVPB MWF [facility] Last Admin: 09/04/16 14:00 Dose: 100.609 mls/hr Insulin Detemir (Levemir) 16 units SC HS [facility] Last Admin: 09/04/16 22:00 Dose: Not Given Insulin Human Lispro (Humalog) 6 units SC AC [facility] Last Admin: 09/04/16 17:03 Dose: 6 units Lidocaine (Lidoderm) 1 ea TD DAILY [facility] Last Admin: 09/04/16 09:34 Dose: 1 ea Nystatin (Nystop Topical Powder) 1 applic TOP TID [facility] Last Admin: 09/04/16 17:05 Dose: 1 applic Ondansetron HCl (Zofran Inj) 4 mg IVP Q6 PRN PRN Reason: Nausea/Vomiting Last Admin: 09/02/16 12:11 Dose: 4 mg Pantoprazole Sodium (Protonix Inj) 40 mg IVP DAILY [facility] Last Admin: 09/04/16 09:38 Dose: 40 mg Sevelamer HCl (Renagel) 1,600 mg PO TID [facility] Last Admin: 09/04/16 17:05 Dose: 1,600 mg Topiramate (Topamax) 50 mg PO BID [facility] Last Admin: 09/04/16 17:06 Dose: 50 mg Vitamin B Complex/Vit C/Folic Acid (Nephro-Ajay) 1 tab PO DAILY [facility] Last Admin: 09/04/16 09:36 Dose: 1 tab - Labs Labs: 09/04/16 08:07 09/04/16 04:20 PT 16.5 SECONDS (9.6-11.2) H 08/28/16 16:11 INR 1.59 (0.92-1.08) H 08/28/16 16:11 APTT 38.7 SECONDS (23.3-32.5) H 08/28/16 16:11 - Constitutional Appears: Non-toxic, No Acute Distress - Extremities Exam Additional comments: Right lower extremity exam: VASC- DP/PT pulses non-palpable, capillary refill < 5 sec to digits x 5, moderate 2+ pitting edema noted to anterior aspect of leg and dorsum of foot NEURO-gross pedal sensation is diminished DERM- superficial dry eschar noted to plantar aspect of heel, appears dry w/ no drainage on compression, no purulence, no increased warmth, no local or ascending erythema, no acute signs infection ORTHO- slight tenderness noted to distal posterior leg today, severe varus deformity of ankle noted - Neurological Exam Neurological Exam: Alert, Awake, Oriented x3 - Psychiatric Exam Psychiatric exam: Normal Affect, Normal Mood Assessment and Plan - Assessment and Plan (Free Text) Assessment: 46 yo female patient w/ pmhx of HTN, ESRD (on dialysis), coagulopathy, DM, charcot right foot PVD w/ stable dry eschar of right heel. Plan: -Pt S&E at bedside -Discussed plan w/ Dr. Pruett -Chart, labs, vitals reviewed: afebrile, WBC improving (14.6 today) -Dressing changed with DSD, multipodus boot reapplied -c/w IV abx per ID -Awaiting MRI report, awaiting 3-phase bone scan. If indeterminate will consider Indium 111 WBC study -Will follow
[2016-09-05 07:03] LABS: HEMATOCRIT 29.8 % (34.0-47.0); MEAN CORPUSCULAR HEMOGLOBIN 28.5 pg (27.0-31.0); MEAN CORPUSCULAR HGB CONC 30.3 g/dL (33.0-37.0); RED CELL DISTRIBUTION WIDTH 20.7 % (11.5-14.5); WHITE BLOOD COUNT 14.6 K/uL (4.8-10.8)
[2016-09-05 07:21] LABS: CALCIUM 8.4 mg/dL (8.4-10.2)
--- NOTE | 2016-09-05 07:35 | CP.CCUPN ---
CCU Subjective - Physician Review Subjective (Free Text): 09/05/16 7:30 46 year old female with PMHx of ESRD on HD (3 times a week) , HTN, DM type 2, Protein C/ Protein S deficiency ,Severe PVD, chronic disease anemia was admitted for RLE cellulites transfer to ICU for code sepsis. Patient was seen and examined at bedside this morning. Patient had dialysis and removed 2.5L on yesterday. Patient has afebrile, tachycardia with HR of 122 bpm, BP of 146/65 RR 26 and Sat O2 100 % on 2L O2 nasal cannula. Patient leukocytosis is improving and receiving amikacin, meropenem, zosyn and zyvox. Patient is schedule to do 3 phase bone scan and MRI today. Patient also schedule to do arteriogram on tomorrow. Patient is hold eliquis and aspirin until tomorrow. Patient is Denies fever, SOB, chest pain, diarrhea, headache and dizziness. CCU Objective - Vital Signs / Intake & Output Vital Signs (Last 4 hours): Vital Signs Temp Pulse Resp BP Pulse Ox 09/05/16 06:00 119 H 11 L 118/58 L 100 09/05/16 04:00 98.8 F 122 H 16 146/65 100 Intake and Output (Last 8hrs): Intake & Output 09/04/16 09/05/16 09/05/16 22:59 06:59 14:59 Intake Total 600 Balance 600 Intake: Intake, Piggyback 300 Oral 300 Other: # Bowel Movements 1 - Physical Exam Head: Positive for: Atraumatic, Normocephalic Pupils: Positive for: PERRL Pharnyx: Positive for: ERYTHEMA Neck: Positive for: Normal Range of Motion. Negative for: JVD Respiratory/Chest: Positive for: Wheezes (bibasilar), Other (Right SC dialysis catheter and PICC line on right arm). 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) Neurological: Positive for: Speech Normal, Other (Alert awake oriented x 3) Skin: Positive for: Warm, Normal Color Psychiatric: Positive for: Alert, Oriented x 3, Normal Insight, Normal Concentration - Medications Active Medications: Active Medications Generic Name Dose Route Start Last Admin Trade Name Freq PRN Reason Stop Dose Admin Acetaminophen 650 mg 08/28/16 00:09 08/28/16 15:23 Tylenol 325mg Tab PO 650 mg Q4 PRN Administration Fever >100.4 F Acetaminophen 650 mg 08/28/16 00:12 09/03/16 03:33 Tylenol 325mg Tab PO 650 mg Q4 PRN Administration Pain, moderate (4-7) Acetylcysteine 2 ml 09/03/16 20:00 09/04/16 20:00 Mucomyst 10% 4ml IH Not Given RBID [facility]AS[facility] Albuterol Sulfate 2.5 mg 09/03/16 20:00 09/04/16 20:00 Albuterol 0.083% Inhal Barbie (2.5 Mg/3 Ml) Ud INH Not Given RBID [facility]AS[facility] Albuterol/Ipratropium 3 ml 08/29/16 18:39 09/05/16 02:15 Duoneb 3 Mg/0.5 Mg (3 Ml) Ud INH 3 ml RQ4 PRN Administration Shortness of Breath Apixaban 5 mg 08/28/16 09:15 09/04/16 17:03 Eliquis PO 5 mg BID [facility] Administration Protocol Aspirin 81 mg 08/28/16 09:00 09/04/16 09:33 Ecotrin PO 81 mg DAILY [facility] Administration Atorvastatin Calcium 40 mg 08/28/16 09:00 09/04/16 09:36 Lipitor PO 40 mg DAILY [facility] Administration Benzonatate 200 mg 09/04/16 16:13 09/05/16 02:16 Tessalon Perles PO 200 mg TID PRN Administration Cough Cinacalcet 30 mg 08/28/16 11:15 09/04/16 09:38 Sensipar PO 30 mg DAILY [facility] Administration Collagenase 1 applic 08/28/16 09:00 09/04/16 08:00 Santyl TOP 1 applic DAILY [facility] Administration Docusate Sodium 200 mg 08/28/16 09:00 09/04/16 17:03 Colace PO 200 mg BID [facility] Administration Epoetin Tha 20,000 unit 09/02/16 09:00 09/04/16 10:55 Procrit IV 20,000 unit [facility] Administration Guaifenesin/Dextromethorphan 10 ml 09/01/16 10:33 09/02/16 22:09 Robitussin Dm PO 10 ml Q4 PRN Administration Cough Hydrocortisone 1 applic 09/01/16 10:45 09/04/16 17:03 Anusol-Hc [place] 1 applic BID [facility] Administration Piperacillin Sod/Tazobactam 100 mls @ 100 mls/hr 08/27/16 21:00 09/04/16 21: 12 Sod 2.25 gm/ Sodium Chloride IVPB 100 mls/hr Q12 [facility] Administration Linezolid 300 mls @ 300 mls/hr 08/27/16 21:00 09/04/16 21:13 Zyvox 600mg/300ml D5w IVPB 300 mls/hr Q12 [facility] Administration Meropenem 500 mg/ Sodium 100 mls @ 100 mls/hr 08/29/16 09:00 09/04/16 15:00 Chloride IVPB 100 mls/hr DAILY [facility] Administration Sodium Chloride 250 mls @ 999 mls/hr 08/29/16 23:30 08/30/16 05:36 Sodium Chloride 0.9% IV 999 mls/hr .Q16M [facility] Administration Amikacin Sulfate 250 mg/ 101 mls @ 100.609 mls/hr 09/04/16 09:00 09/04/16 14: 00 Sodium Chloride IVPB 100.609 mls/hr [facility] Administration Insulin Detemir 16 units 09/04/16 22:00 09/04/16 22:00 Levemir SC Not Given HS [facility] Insulin Human Lispro 6 units 09/04/16 16:30 09/04/16 17:03 Humalog SC 6 units AC [facility] Administration Lidocaine 1 ea 08/29/16 13:30 09/04/16 09:34 Lidoderm TD 1 ea DAILY [facility] Administration Nystatin 1 applic 09/02/16 13:00 09/04/16 17:05 Nystop Topical Powder TOP 1 applic TID [facility] Administration Ondansetron HCl 4 mg 08/29/16 19:00 09/02/16 12:11 Zofran Inj IVP 4 mg Q6 PRN Administration Nausea/Vomiting Pantoprazole Sodium 40 mg 08/31/16 11:00 09/04/16 09:38 Protonix Inj IVP 40 mg DAILY [facility] Administration Sevelamer HCl 1,600 mg 08/28/16 11:11 09/04/16 17:05 Renagel PO 1,600 mg TID [facility] Administration Topiramate 50 mg 08/30/16 18:45 09/04/16 17:06 Topamax PO 50 mg BID [facility] Administration Vitamin B Complex/Vit C/Folic Acid 1 tab 08/28/16 09:00 09/04/16 09:36 Nephro-Ajay PO 1 tab DAILY [facility] Administration - Patient Studies Lab Studies: Microbiology Studies 08/31/16 09:23 Blood Culture - Preliminary Blood NO GROWTH AFTER 4 DAYS Lab Studies 09/05/16 09/05/16 09/05/16 Range/Units 05:26 05:25 05:25 WBC 14.6 H (4.8-10.8) K/uL RBC 3.17 L (3.80-5.20) Mil/uL Hgb 9.0 L (12.0-16.0) g/dL Hct 29.8 L (34.0-47.0) % MCV 94.0 D (81.0-99.0) fl MCH 28.5 (27.0-31.0) pg MCHC 30.3 L (33.0-37.0) g/dL RDW 20.7 H (11.5-14.5) % Plt Count 284 (130-400) K/uL MPV (7.2-11.7) fl Neut % (Auto) (50.0-75.0) % Lymph % (Auto) (20.0-40.0) % Barry % (Auto) (0.0-10.0) % Eos % (Auto) (0.0-4.0) % Baso % (Auto) (0.0-2.0) % Neut # (1.8-7.0) K/uL Lymph # (1.0-4.3) K/uL Barry # (0.0-0.8) K/uL Eos # (0.0-0.7) K/uL Baso # (0.0-0.2) K/uL Sodium 138 (132-148) mmol/l Potassium 4.0 (3.6-5.0) MMOL/L Chloride 97 L (98-107) mmol/L Carbon Dioxide 25 (22-30) mmol/L Anion Gap 20 (10-20) BUN 18 H (7-17) mg/dl Creatinine 4.7 H (0.7-1.2) mg/dL Est GFR ( Amer) 12 Est GFR (Non-Af Amer) 10 POC Glucose (mg/dL) 254 H (65-110) mg/dL Random Glucose 230 H (65-105) mg/dL Calcium 8.4 (8.4-10.2) mg/dL 09/04/16 09/04/16 09/04/16 Range/Units 22:54 16:58 11:46 WBC (4.8-10.8) K/uL RBC (3.80-5.20) Mil/uL Hgb (12.0-16.0) g/dL Hct (34.0-47.0) % MCV (81.0-99.0) fl MCH (27.0-31.0) pg MCHC (33.0-37.0) g/dL RDW (11.5-14.5) % Plt Count (130-400) K/uL MPV (7.2-11.7) fl Neut % (Auto) (50.0-75.0) % Lymph % (Auto) (20.0-40.0) % Barry % (Auto) (0.0-10.0) % Eos % (Auto) (0.0-4.0) % Baso % (Auto) (0.0-2.0) % Neut # (1.8-7.0) K/uL Lymph # (1.0-4.3) K/uL Barry # (0.0-0.8) K/uL Eos # (0.0-0.7) K/uL Baso # (0.0-0.2) K/uL Sodium (132-148) mmol/l Potassium (3.6-5.0) MMOL/L Chloride (98-107) mmol/L Carbon Dioxide (22-30) mmol/L Anion Gap (10-20) BUN (7-17) mg/dl Creatinine (0.7-1.2) mg/dL Est GFR ( Amer) Est GFR (Non-Af Amer) POC Glucose (mg/dL) 177 H 182 H 183 H (65-110) mg/dL Random Glucose (65-105) mg/dL Calcium (8.4-10.2) mg/dL 09/04/16 09/04/16 Range/Units 08:13 08:07 WBC 14.8 H (4.8-10.8) K/uL RBC 3.10 L (3.80-5.20) Mil/uL Hgb 9.1 L (12.0-16.0) g/dL Hct 28.5 L (34.0-47.0) % MCV 91.9 (81.0-99.0) fl MCH 29.4 (27.0-31.0) pg MCHC 32.0 L (33.0-37.0) g/dL RDW 20.6 H (11.5-14.5) % Plt Count 226 (130-400) K/uL MPV 10.1 (7.2-11.7) fl Neut % (Auto) 79.8 H (50.0-75.0) % Lymph % (Auto) 6.9 L (20.0-40.0) % Barry % (Auto) 10.8 H (0.0-10.0) % Eos % (Auto) 2.0 (0.0-4.0) % Baso % (Auto) 0.5 (0.0-2.0) % Neut # 11.8 H (1.8-7.0) K/uL Lymph # 1.0 (1.0-4.3) K/uL Barry # 1.6 H (0.0-0.8) K/uL Eos # 0.3 (0.0-0.7) K/uL Baso # 0.1 (0.0-0.2) K/uL Sodium (132-148) mmol/l Potassium (3.6-5.0) MMOL/L Chloride (98-107) mmol/L Carbon Dioxide (22-30) mmol/L Anion Gap (10-20) BUN (7-17) mg/dl Creatinine (0.7-1.2) mg/dL Est GFR ( Amer) Est GFR (Non-Af Amer) POC Glucose (mg/dL) 191 H (65-110) mg/dL Random Glucose (65-105) mg/dL Calcium (8.4-10.2) mg/dL Laboratory Results - last 24 hr 09/04/16 09/04/16 09/04/16 08:07 08:13 11:46 WBC 14.8 H RBC 3.10 L Hgb 9.1 L Hct 28.5 L MCV 91.9 MCH 29.4 MCHC 32.0 L RDW 20.6 H Plt Count 226 MPV 10.1 Neut % (Auto) 79.8 H Lymph % (Auto) 6.9 L Barry % (Auto) 10.8 H Eos % (Auto) 2.0 Baso % (Auto) 0.5 Neut # 11.8 H Lymph # 1.0 Barry # 1.6 H Eos # 0.3 Baso # 0.1 Sodium Potassium Chloride Carbon Dioxide Anion Gap BUN Creatinine Est GFR ( Amer) Est GFR (Non-Af Amer) POC Glucose (mg/dL) 191 H 183 H Random Glucose Calcium 09/04/16 09/04/16 09/05/16 16:58 22:54 05:25 WBC 14.6 H RBC 3.17 L Hgb 9.0 L Hct 29.8 L MCV 94.0 D MCH 28.5 MCHC 30.3 L RDW 20.7 H Plt Count 284 MPV Neut % (Auto) Lymph % (Auto) Barry % (Auto) Eos % (Auto) Baso % (Auto) Neut # Lymph # Barry # Eos # Baso # Sodium Potassium Chloride Carbon Dioxide Anion Gap BUN Creatinine Est GFR ( Amer) Est GFR (Non-Af Amer) POC Glucose (mg/dL) 182 H 177 H Random Glucose Calcium 09/05/16 09/05/16 05:25 05:26 WBC RBC Hgb Hct MCV MCH MCHC RDW Plt Count MPV Neut % (Auto) Lymph % (Auto) Barry % (Auto) Eos % (Auto) Baso % (Auto) Neut # Lymph # Barry # Eos # Baso # Sodium 138 Potassium 4.0 Chloride 97 L Carbon Dioxide 25 Anion Gap 20 BUN 18 H Creatinine 4.7 H Est GFR ( Amer) 12 Est GFR (Non-Af Amer) 10 POC Glucose (mg/dL) 254 H Random Glucose 230 H Calcium 8.4 EKG/Cardiology Studies: Cardiology / EKG Studies 09/04/16 09:26 ELECTROCARDIOGRAM Routine Reason For Exam: REPEAT Fingerstick Blood Sugar Results: 171 Critical Care Progress Note - Nutrition Nutrition: Nutrition Category Date Time Status Renal Diet [DIET] Diets 08/30/16 Dinner Active Assessment/Plan (1) Sepsis associated hypotension Current Visit: Yes Status: Acute Comment: -improved with BP, afebrile and still tachy but better 120's -etiology probable to osteomyelitis -off pressor -trending down leukocytosis 14.8->14.6 -right foot wound culture showed E.Coli sensitivity to all the medication (2016) -blood culture and permacath blood showed E.Coli ( 08/27/2016), 2x blood culture negative -continue with zosyn, zyvox and meropenem -monitor cbc and vitals (2) Ulcer of right foot Current Visit: Yes Status: Acute Comment: -Cellulitis of leg and ulceration with right foot -etiology possible osteomyelitis ? -wound culture showed E.Coli -continue with zosyn. 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 Although there is atherosclerotic disease distally flow documented in the popliteal artery and posterior tibial artery. Nondiagnostic assessment right dorsalis pedis artery. Nonvisualization right anterior tibial artery. - plan to do MRI with 0.5mg ativan before testing -order 3 phase bone scan today -schedule for arteriogram on friday -hold eliquis and aspirin until friday (3) Pneumonia Current Visit: No Status: Acute Comment: -afebrile -improving leukocytosis -chest xray showed Stable infiltrates right lower lobe. No new/ acute findings. No new/acute findings apparent. -multiple coverage antibiotic -duoneb q6h PRN -pulomonary PT (4) ESRD (end stage renal disease) on dialysis Current Visit: No Status: Chronic Comment: -HD (MWF) -HD on MWF -BUN/Cr:18/4.7 -continue with renagel 1600mg TID and sensipar 30mg daily. -monitor BMP -renal diet (5) Hyperlipidemia Current Visit: Yes Status: Acute Comment: -continue with lipitor (6) PVD (peripheral vascular disease) Current Visit: Yes Status: Acute Comment: -continue with eliquis -continue with lipitor (7) Diabetes mellitus type 2 with peripheral artery disease Current Visit: Yes Status: Acute Comment: -uncontrolled -HgA1C: 11 -monitor only bmp not accucheck -continue with humalog but hold detemir for now -Endo is on board (8) Coagulopathy Current Visit: No Status: Chronic Comment: -hx of Protein C & S deficiency and heparin antibodies -hold eliquis until tomorrow (9) DVT prophylaxis Current Visit: Yes Status: Acute Comment: -hx of protein c and S deficiency -hold eliquis until tomorrow
[2016-09-05] MEDS: Albuterol 0.083% Inhal Sol (2.5 mg/3 mL) UD INH SCH ×2 (07:48→19:34)
[2016-09-05] MEDS: Acetylcysteine 10% 4 ML IH SCH ×2 (07:48→19:33)
--- NOTE | 2016-09-05 08:43 | CP.PCM.PN ---
Subjective - Date & Time of Evaluation Date of Evaluation: 09/05/16 Time of Evaluation: 08:33 - Subjective Subjective: Pt is feeling better, but the right foot looks black and she has a non healing ulcer on the heel. She is to have a MRA of the right lower extremity to evaluate the circulation in the limb. Depending on the result of this , a decision will be made by the surgeon if she need surgery. She is on aspirin and E, and resumed after surgery when hemostasis has been then re started after the liquis at this time. I would hold aspirin until after the surgery. The eliquis should be held 48 hrs before the MRA and put back on it after the procedure if there is no bleeding. For the surgery the Eliquis should be stopped 48 hrs before surgery, then restarted post op after hemostasis has been established. Aspirin should be held until the surgery is done and hemostasis established. Objective - Vital Signs/Intake and Output Vital Signs (last 24 hours): Temp Pulse Resp BP Pulse Ox 99.4 F 119 H 23 117/85 98 09/05/16 08:00 09/05/16 08:00 09/05/16 08:00 09/05/16 08:00 09/05/16 08:00 - Medications Medications: Current Medications Acetaminophen (Tylenol 325mg Tab) 650 mg PO Q4 PRN PRN Reason: Fever >100.4 F Last Admin: 08/28/16 15:23 Dose: 650 mg Acetaminophen (Tylenol 325mg Tab) 650 mg PO Q4 PRN PRN Reason: Pain, moderate (4-7) Last Admin: 09/03/16 03:33 Dose: 650 mg Acetylcysteine (Mucomyst 10% 4ml) 2 ml IH RBID [facility] Last Admin: 09/05/16 07:48 Dose: 2 ml Albuterol Sulfate (Albuterol 0.083% Inhal Barbie (2.5 Mg/3 Ml) Ud) 2.5 mg INH RBID [facility] Last Admin: 09/05/16 07:48 Dose: 2.5 mg Albuterol/Ipratropium (Duoneb 3 Mg/0.5 Mg (3 Ml) Ud) 3 ml INH RQ4 PRN PRN Reason: Shortness of Breath Last Admin: 09/05/16 02:15 Dose: 3 ml Apixaban (Eliquis) 5 mg PO BID [facility] PRN Reason: Protocol Last Admin: 09/04/16 17:03 Dose: 5 mg Atorvastatin Calcium (Lipitor) 40 mg PO DAILY [facility] Last Admin: 09/04/16 09:36 Dose: 40 mg Benzonatate (Tessalon Perles) 200 mg PO TID PRN PRN Reason: Cough Last Admin: 09/05/16 02:16 Dose: 200 mg Cinacalcet (Sensipar) 30 mg PO DAILY [facility] Last Admin: 09/04/16 09:38 Dose: 30 mg Collagenase (Santyl) 1 applic TOP DAILY [facility] Last Admin: 09/04/16 08:00 Dose: 1 applic Docusate Sodium (Colace) 200 mg PO BID [facility] Last Admin: 09/04/16 17:03 Dose: 200 mg Epoetin Tha (Procrit) 20,000 unit IV [facility] Last Admin: 09/04/16 10:55 Dose: 20,000 unit Guaifenesin/Dextromethorphan (Robitussin Dm) 10 ml PO Q4 PRN PRN Reason: Cough Last Admin: 09/02/16 22:09 Dose: 10 ml Hydrocortisone (Anusol-Hc) 1 applic [place] BID [facility] Last Admin: 09/04/16 17:03 Dose: 1 applic Piperacillin Sod/Tazobactam (Sod 2.25 gm/ Sodium Chloride) 100 mls @ 100 mls/ hr IVPB Q12 [facility] Last Admin: 09/04/16 21:12 Dose: 100 mls/hr Linezolid (Zyvox 600mg/300ml D5w) 300 mls @ 300 mls/hr IVPB Q12 [facility] Last Admin: 09/04/16 21:13 Dose: 300 mls/hr Meropenem 500 mg/ Sodium (Chloride) 100 mls @ 100 mls/hr IVPB DAILY [facility] Last Admin: 09/04/16 15:00 Dose: 100 mls/hr Sodium Chloride (Sodium Chloride 0.9%) 250 mls @ 999 mls/hr IV .Q16M [facility] Last Admin: 08/30/16 05:36 Dose: 999 mls/hr Amikacin Sulfate 250 mg/ (Sodium Chloride) 101 mls @ 100.609 mls/hr IVPB MWF [facility] Last Admin: 09/04/16 14:00 Dose: 100.609 mls/hr Insulin Detemir (Levemir) 16 units SC HS [facility] Last Admin: 09/04/16 22:00 Dose: Not Given Insulin Human Lispro (Humalog) 6 units SC AC [facility] Last Admin: 09/04/16 17:03 Dose: 6 units Lidocaine (Lidoderm) 1 ea TD DAILY [facility] Last Admin: 09/04/16 09:34 Dose: 1 ea Nystatin (Nystop Topical Powder) 1 applic TOP TID [facility] Last Admin: 09/04/16 17:05 Dose: 1 applic Ondansetron HCl (Zofran Inj) 4 mg IVP Q6 PRN PRN Reason: Nausea/Vomiting Last Admin: 09/02/16 12:11 Dose: 4 mg Pantoprazole Sodium (Protonix Inj) 40 mg IVP DAILY [facility] Last Admin: 09/04/16 09:38 Dose: 40 mg Sevelamer HCl (Renagel) 1,600 mg PO TID [facility] Last Admin: 09/04/16 17:05 Dose: 1,600 mg Topiramate (Topamax) 50 mg PO BID [facility] Last Admin: 09/04/16 17:06 Dose: 50 mg Vitamin B Complex/Vit C/Folic Acid (Nephro-Ajay) 1 tab PO DAILY [facility] Last Admin: 09/04/16 09:36 Dose: 1 tab - Labs Labs: 09/05/16 05:25 09/05/16 05:25 PT 16.5 SECONDS (9.6-11.2) H 08/28/16 16:11 INR 1.59 (0.92-1.08) H 08/28/16 16:11 APTT 38.7 SECONDS (23.3-32.5) H 08/28/16 16:11
[2016-09-05] MEDS: Insulin Lispro (humaLOG) 100 Units/ml Inj SC SCH ×3 (08:47→17:08)
[2016-09-05] MEDS: Lidocaine 5% Patch TD SCH (08:48)
[2016-09-05] MEDS: Meropenem 500 MG in Sodium Chloride 0.9% 100 ML IVPB SCH (08:50)
--- NOTE | 2016-09-05 08:50 | CARD ---
APPROVED REPORT EKG Measurement Heart [id number] <Conclusion> Sinus tachycardia Low voltage QRS Poor progression of R waves Prolonged QT Abnormal ECG
[2016-09-05] MEDS: Multivitamin Vitamin B Complex (Nephro-Vite) Tab PO SCH (08:51)
[2016-09-05] MEDS: Linezolid 600 mg in D5W 300 ml 300 ML IVPB SCH ×2 (08:55→20:16)
--- NOTE | 2016-09-05 09:28 | CP.PCM.PN ---
Subjective - Date & Time of Evaluation Date of Evaluation: 09/05/16 Time of Evaluation: 09:28 - Subjective Subjective: Continues to cough non-productively. Initial cough was productive. Vital signs have been stable and she has been afebrile, but leukocytosis persists. Blood culture have returned negative now. On exam there are very few basal rales heard at the right base posteriorly. Harsh breath sounds are noted, but there is no bronchial breathing or egophony. Added Mucinex DM on top of benzonatate for cough suppression. Continue present medical management. Objective - Vital Signs/Intake and Output Vital Signs (last 24 hours): Temp Pulse Resp BP Pulse Ox 99.4 F 119 H 23 117/85 98 09/05/16 08:00 09/05/16 08:00 09/05/16 08:00 09/05/16 08:00 09/05/16 08:00 Intake and Output: 09/04/16 09/05/16 23:59 11:59 Intake Total 1350 Output Total 2500 Balance -1150 - Medications Medications: Current Medications Acetaminophen (Tylenol 325mg Tab) 650 mg PO Q4 PRN PRN Reason: Fever >100.4 F Last Admin: 08/28/16 15:23 Dose: 650 mg Acetaminophen (Tylenol 325mg Tab) 650 mg PO Q4 PRN PRN Reason: Pain, moderate (4-7) Last Admin: 09/03/16 03:33 Dose: 650 mg Acetylcysteine (Mucomyst 10% 4ml) 2 ml IH RBID [facility] Last Admin: 09/05/16 07:48 Dose: 2 ml Albuterol Sulfate (Albuterol 0.083% Inhal Barbie (2.5 Mg/3 Ml) Ud) 2.5 mg INH RBID [facility] Last Admin: 09/05/16 07:48 Dose: 2.5 mg Albuterol/Ipratropium (Duoneb 3 Mg/0.5 Mg (3 Ml) Ud) 3 ml INH RQ4 PRN PRN Reason: Shortness of Breath Last Admin: 09/05/16 02:15 Dose: 3 ml Apixaban (Eliquis) 5 mg PO BID [facility] PRN Reason: Protocol Last Admin: 09/05/16 08:46 Dose: Not Given Atorvastatin Calcium (Lipitor) 40 mg PO DAILY [facility] Last Admin: 09/05/16 08:49 Dose: 40 mg Benzonatate (Tessalon Perles) 200 mg PO TID PRN PRN Reason: Cough Last Admin: 09/05/16 08:53 Dose: 200 mg Cinacalcet (Sensipar) 30 mg PO DAILY [facility] Last Admin: 09/05/16 08:52 Dose: 30 mg Collagenase (Santyl) 1 applic TOP DAILY [facility] Last Admin: 09/04/16 08:00 Dose: 1 applic Docusate Sodium (Colace) 200 mg PO BID [facility] Last Admin: 09/05/16 08:44 Dose: Not Given [facility]poetin [facility]a ([facility]) [facility] Last Admin: 09/04/16 10:55 Dose: 20,000 unit Guaifenesin/Dextromethorphan (Mucinex-Dm 600-30 Mg) 1 tab PO BID [facility] Hydrocortisone (Anusol-Hc) 1 applic NC BID [facility] Last Admin: 09/04/16 17:03 Dose: 1 applic Piperacillin Sod/Tazobactam (Sod 2.25 gm/ Sodium Chloride) 100 mls @ 100 mls/ hr IVPB Q12 [facility] Last Admin: 09/05/16 08:54 Dose: 100 mls/hr Linezolid (Zyvox 600mg/300ml D5w) 300 mls @ 300 mls/hr IVPB Q12 [facility] Last Admin: 09/05/16 08:55 Dose: 300 mls/hr Meropenem 500 mg/ Sodium (Chloride) 100 mls @ 100 mls/hr IVPB DAILY [facility] Last Admin: 09/05/16 08:50 Dose: 100 mls/hr Sodium Chloride (Sodium Chloride 0.9%) 250 mls @ 999 mls/hr IV .Q16M [facility] Last Admin: 08/30/16 05:36 Dose: 999 mls/hr Amikacin Sulfate 250 mg/ (Sodium Chloride) 101 mls @ 100.609 mls/hr IVPB MWF [facility] Last Admin: 09/04/16 14:00 Dose: 100.609 mls/hr Insulin Detemir (Levemir) 16 units SC HS [facility] Last Admin: 09/04/16 22:00 Dose: Not Given Insulin Human Lispro (Humalog) 6 units SC AC [facility] Last Admin: 09/05/16 08:47 Dose: 6 units Lidocaine (Lidoderm) 1 ea TD DAILY [facility] Last Admin: 09/05/16 08:48 Dose: 1 ea Nystatin (Nystop Topical Powder) 1 applic TOP TID [facility] Last Admin: 09/05/16 08:51 Dose: 1 applic Ondansetron HCl (Zofran Inj) 4 mg IVP Q6 PRN PRN Reason: Nausea/Vomiting Last Admin: 09/02/16 12:11 Dose: 4 mg Pantoprazole Sodium (Protonix Inj) 40 mg IVP DAILY [facility] Last Admin: 09/05/16 08:52 Dose: 40 mg Sevelamer HCl (Renagel) 1,600 mg PO TID [facility] Last Admin: 09/05/16 08:52 Dose: 1,600 mg Topiramate (Topamax) 50 mg PO BID [facility] Last Admin: 09/04/16 17:06 Dose: 50 mg Vitamin B Complex/Vit C/Folic Acid (Nephro-Ajay) 1 tab PO DAILY [facility] Last Admin: 09/05/16 08:51 Dose: 1 tab - Labs Labs: 09/05/16 05:25 09/05/16 05:25 PT 16.5 SECONDS (9.6-11.2) H 08/28/16 16:11 INR 1.59 (0.92-1.08) H 08/28/16 16:11 APTT 38.7 SECONDS (23.3-32.5) H 08/28/16 16:11
--- NOTE | 2016-09-05 09:29 | CP.PCM.PN ---
<Tabatha Servin - Last Filed: 09/05/16 09:58> Subjective - Date & Time of Evaluation Date of Evaluation: 09/05/16 Time of Evaluation: 08:00 - Subjective Subjective: General Surgery Progress Note 46 yo female patient seen and evaluated at bedside concerning possible right LE osteomyelitis. Pt feels overall pain, discomfort, and feeling of chills/fever have greatly improved. Denies recent n/v/sob/cp. Denies any other complaints at this time. Objective - Vital Signs/Intake and Output Vital Signs (last 24 hours): Temp Pulse Resp BP Pulse Ox 99.4 F 119 H 23 117/85 98 09/05/16 08:00 09/05/16 08:00 09/05/16 08:00 09/05/16 08:00 09/05/16 08:00 - Medications Medications: Current Medications Acetaminophen (Tylenol 325mg Tab) 650 mg PO Q4 PRN PRN Reason: Fever >100.4 F Last Admin: 08/28/16 15:23 Dose: 650 mg Acetaminophen (Tylenol 325mg Tab) 650 mg PO Q4 PRN PRN Reason: Pain, moderate (4-7) Last Admin: 09/03/16 03:33 Dose: 650 mg Acetylcysteine (Mucomyst 10% 4ml) 2 ml IH RBID [facility] Last Admin: 09/05/16 07:48 Dose: 2 ml Albuterol Sulfate (Albuterol 0.083% Inhal Barbie (2.5 Mg/3 Ml) Ud) 2.5 mg INH RBID [facility] Last Admin: 09/05/16 07:48 Dose: 2.5 mg Albuterol/Ipratropium (Duoneb 3 Mg/0.5 Mg (3 Ml) Ud) 3 ml INH RQ4 PRN PRN Reason: Shortness of Breath Last Admin: 09/05/16 02:15 Dose: 3 ml Apixaban (Eliquis) 5 mg PO BID [facility] PRN Reason: Protocol Last Admin: 09/05/16 08:46 Dose: Not Given Atorvastatin Calcium (Lipitor) 40 mg PO DAILY [facility] Last Admin: 09/05/16 08:49 Dose: 40 mg Benzonatate (Tessalon Perles) 200 mg PO TID PRN PRN Reason: Cough Last Admin: 09/05/16 08:53 Dose: 200 mg Cinacalcet (Sensipar) 30 mg PO DAILY [facility] Last Admin: 09/05/16 08:52 Dose: 30 mg Collagenase (Santyl) 1 applic TOP DAILY [facility] Last Admin: 09/04/16 08:00 Dose: 1 applic Docusate Sodium (Colace) 200 mg PO BID [facility] Last Admin: 09/05/16 08:44 Dose: Not Given Epoetin Tha (Procrit) 20,000 unit IV MWF [facility] Last Admin: 09/04/16 10:55 Dose: 20,000 unit Guaifenesin/Dextromethorphan (Mucinex-Dm 600-30 Mg) 1 tab PO BID [facility] Hydrocortisone (Anusol-Hc) 1 applic [place] BID [facility] Last Admin: 09/04/16 17:03 Dose: 1 applic Piperacillin Sod/Tazobactam (Sod 2.25 gm/ Sodium Chloride) 100 mls @ 100 mls/ hr IVPB Q12 [facility] Last Admin: 09/05/16 08:54 Dose: 100 mls/hr Linezolid (Zyvox 600mg/300ml D5w) 300 mls @ 300 mls/hr IVPB Q12 [facility] Last Admin: 09/05/16 08:55 Dose: 300 mls/hr Meropenem 500 mg/ Sodium (Chloride) 100 mls @ 100 mls/hr IVPB DAILY [facility] Last Admin: 09/05/16 08:50 Dose: 100 mls/hr Sodium Chloride (Sodium Chloride 0.9%) 250 mls @ 999 mls/hr IV .Q16M [facility] Last Admin: 08/30/16 05:36 Dose: 999 mls/hr Amikacin Sulfate 250 mg/ (Sodium Chloride) 101 mls @ 100.609 mls/hr IVPB MWF [facility] Last Admin: 09/04/16 14:00 Dose: 100.609 mls/hr Insulin Detemir (Levemir) 16 units SC HS [facility] Last Admin: 09/04/16 22:00 Dose: Not Given Insulin Human Lispro (Humalog) 6 units SC AC [facility] Last Admin: 09/05/16 08:47 Dose: 6 units Lidocaine (Lidoderm) 1 ea TD DAILY [facility] Last Admin: 09/05/16 08:48 Dose: 1 ea Nystatin (Nystop Topical Powder) 1 applic TOP TID [facility] Last Admin: 09/05/16 08:51 Dose: 1 applic Ondansetron HCl (Zofran Inj) 4 mg IVP Q6 PRN PRN Reason: Nausea/Vomiting Last Admin: 09/02/16 12:11 Dose: 4 mg Pantoprazole Sodium (Protonix Inj) 40 mg IVP DAILY [facility] Last Admin: 09/05/16 08:52 Dose: 40 mg Sevelamer HCl (Renagel) 1,600 mg PO TID [facility] Last Admin: 09/05/16 08:52 Dose: 1,600 mg Topiramate (Topamax) 50 mg PO BID [facility] Last Admin: 09/04/16 17:06 Dose: 50 mg Vitamin B Complex/Vit C/Folic Acid (Nephro-Ajay) 1 tab PO DAILY [facility] Last Admin: 09/05/16 08:51 Dose: 1 tab - Labs Labs: 09/05/16 05:25 09/05/16 05:25 PT 16.5 SECONDS (9.6-11.2) H 08/28/16 16:11 INR 1.59 (0.92-1.08) H 08/28/16 16:11 APTT 38.7 SECONDS (23.3-32.5) H 08/28/16 16:11 - Constitutional Appears: Non-toxic, No Acute Distress - Head Exam Head Exam: NORMAL INSPECTION, NORMOCEPHALIC - Eye Exam Eye Exam: EOMI, Normal appearance - Respiratory Exam Respiratory Exam: NORMAL BREATHING PATTERN. absent: Chest Wall Tenderness, Decreased Breath Sounds - GI/Abdominal Exam GI & Abdominal Exam: Soft, Normal Bowel Sounds. absent: Tenderness - Extremities Exam Additional comments: Right severe varus deformity of ankle. Slight tenderness noted to deep palpation of calf/posterior leg. Right heel necrotic echar, absent drainage, erythema of other acute signs of infection. - Neurological Exam Neurological Exam: Alert, Awake, Oriented x3 - Psychiatric Exam Psychiatric exam: Normal Affect, Normal Mood - Skin Skin Exam: Dry, Warm Assessment and Plan - Assessment and Plan (Free Text) Assessment: 46 yo female patient w/ pmhx of HTN, ESRD (on dialysis), coagulopathy, DM, charcot right foot PVD 1) sepsis 2) right heel ulceration, Charcot Arhtropathy and potential Calcaneal OM. Plan: Pt seen and evaluated. - Continue antibiotics as per ID - f/u MRI, arteriogram and potential Bone scan. - Repeat labs in am - Will follow D/W Dr. Villarreal <Enmanuel Villarreal - Last Filed: 09/05/16 14:12> Subjective - Subjective Subjective: Patient was seen and examined at the bedside. Agree with resident's note above Objective - Vital Signs/Intake and Output Vital Signs (last 24 hours): Temp Pulse Resp BP Pulse Ox 98.3 F 113 H 19 125/79 97 09/05/16 12:00 09/05/16 12:00 09/05/16 12:00 09/05/16 12:00 09/05/16 12:00 - Medications Medications: Current Medications Acetaminophen (Tylenol 325mg Tab) 650 mg PO Q4 PRN PRN Reason: Fever >100.4 F Last Admin: 08/28/16 15:23 Dose: 650 mg Acetaminophen (Tylenol 325mg Tab) 650 mg PO Q4 PRN PRN Reason: Pain, moderate (4-7) Last Admin: 09/03/16 03:33 Dose: 650 mg Acetylcysteine (Mucomyst 10% 4ml) 2 ml IH RBID [facility] Last Admin: 09/05/16 07:48 Dose: 2 ml Albuterol Sulfate (Albuterol 0.083% Inhal Barbie (2.5 Mg/3 Ml) Ud) 2.5 mg INH RBID [facility] Last Admin: 09/05/16 07:48 Dose: 2.5 mg Albuterol/Ipratropium (Duoneb 3 Mg/0.5 Mg (3 Ml) Ud) 3 ml INH RQ4 PRN PRN Reason: Shortness of Breath Last Admin: 09/05/16 02:15 Dose: 3 ml Apixaban (Eliquis) 5 mg PO BID [facility] PRN Reason: Protocol Last Admin: 09/05/16 08:46 Dose: Not Given Atorvastatin Calcium (Lipitor) 40 mg PO DAILY [facility] Last Admin: 09/05/16 08:49 Dose: 40 mg Benzonatate (Tessalon Perles) 200 mg PO TID PRN PRN Reason: Cough Last Admin: 09/05/16 08:53 Dose: 200 mg Cinacalcet (Sensipar) 30 mg PO DAILY [facility] Last Admin: 09/05/16 08:52 Dose: 30 mg Collagenase (Santyl) 1 applic TOP DAILY [facility] Last Admin: 09/04/16 08:00 Dose: 1 applic Docusate Sodium (Colace) 200 mg PO BID [facility] Last Admin: 09/05/16 08:44 Dose: Not Given Epoetin Tha (Procrit) 20,000 unit IV MWF [facility] Last Admin: 09/04/16 10:55 Dose: 20,000 unit Guaifenesin/Dextromethorphan (Mucinex-Dm 600-30 Mg) 1 tab PO BID [facility] Hydrocortisone (Anusol-Hc) 1 applic [place] BID [facility] Last Admin: 09/05/16 12:32 Dose: 1 applic Piperacillin Sod/Tazobactam (Sod 2.25 gm/ Sodium Chloride) 100 mls @ 100 mls/ hr IVPB Q12 [facility] Last Admin: 09/05/16 08:54 Dose: 100 mls/hr Linezolid (Zyvox 600mg/300ml D5w) 300 mls @ 300 mls/hr IVPB Q12 [facility] Last Admin: 09/05/16 08:55 Dose: 300 mls/hr Meropenem 500 mg/ Sodium (Chloride) 100 mls @ 100 mls/hr IVPB DAILY [facility] Last Admin: 09/05/16 08:50 Dose: 100 mls/hr Sodium Chloride (Sodium Chloride 0.9%) 250 mls @ 999 mls/hr IV .Q16M [facility] Last Admin: 08/30/16 05:36 Dose: 999 mls/hr Amikacin Sulfate 250 mg/ (Sodium Chloride) 101 mls @ 100.609 mls/hr IVPB MWF [facility] Last Admin: 09/04/16 14:00 Dose: 100.609 mls/hr Insulin Detemir (Levemir) 20 units SC HS [facility] Insulin Human Lispro (Humalog) 6 units SC AC [facility] Last Admin: 09/05/16 08:47 Dose: 6 units Lidocaine (Lidoderm) 1 ea TD DAILY [facility] Last Admin: 09/05/16 08:48 Dose: 1 ea Nystatin (Nystop Topical Powder) 1 applic TOP TID [facility] Last Admin: 09/05/16 08:51 Dose: 1 applic Ondansetron HCl (Zofran Inj) 4 mg IVP Q6 PRN PRN Reason: Nausea/Vomiting Last Admin: 09/02/16 12:11 Dose: 4 mg Pantoprazole Sodium (Protonix Inj) 40 mg IVP DAILY [facility] Last Admin: 09/05/16 08:52 Dose: 40 mg Sevelamer HCl (Renagel) 1,600 mg PO TID [facility] Last Admin: 09/05/16 08:52 Dose: 1,600 mg Topiramate (Topamax) 50 mg PO BID [facility] Last Admin: 09/05/16 12:33 Dose: 50 mg Vitamin B Complex/Vit C/Folic Acid (Nephro-Ajay) 1 tab PO DAILY [facility] Last Admin: 09/05/16 08:51 Dose: 1 tab - Labs Labs: 09/05/16 05:25 09/05/16 05:25 PT 16.5 SECONDS (9.6-11.2) H 08/28/16 16:11 INR 1.59 (0.92-1.08) H 08/28/16 16:11 APTT 38.7 SECONDS (23.3-32.5) H 08/28/16 16:11
[2016-09-05] MEDS ORDERED: HYDROmorphone 0.5 mg/0.5 ml ISec IVP STA (10:17)
[2016-09-05] MEDS ORDERED: DiphenhydrAMINE 50 mg/ml Inj ONE (11:39)
[2016-09-05] MEDS ORDERED: DiphenhydrAMINE 50 mg/ml Inj IVP STA (11:40)
[2016-09-05] MEDS: Hydrocortisone 2.5% (Rectal) CREAM PR SCH ×2 (12:32→17:43)
[2016-09-05] MEDS ORDERED: Lidocaine 5% Patch TD STA (12:36)
--- NOTE | 2016-09-05 12:42 | MRI ---
MRI right tibia and fibula History: Cellulitis. Evaluate for abscess or osteomyelitis. Comparison: X-ray dated 08/27/2016 of the right foot. Technique: Multi-echo multiplanar sequences were performed through the right tibia and fibula without the use of intravenous contrast. Findings: Reticulation and edema within the circumferential subcutaneous soft tissues consistent with known cellulitis. More confluent fluid attenuated collection seen within the posterior calf at the level of the proximal tibia and fibula measuring up to 5.5 x 0.7 centimeters. This may represent some developing phlegmonous changes however no discrete abscess collection is identified. Diffuse decreased T1 signal throughout the visualized musculature suggestive for muscle atrophy. Focal signal abnormality seen within the mid medullary cavity of the midshaft of the fibula best seen on series 5, image 34 with associated mild increased STIR signal. This is of uncertain clinical etiology and may represent focal hematopoietic marrow reconversion versus prominent traversing vessel versus mild acute infectious and or inflammatory changes. No gross increased STIR signal seen within the surrounding musculature or soft tissues at this level. Prominent signal abnormality seen within the distal fibula and tibia with bony destructive changes as well as signal abnormality with bony destructive changes in the majority of the visualized mid and hindfoot with decreased T1 signal and increased STIR signal. In correlation with the plain x-ray, these findings may be related to underlying neuropathic change and or Charcot arthropathy however underlying acute infectious changes such as acute osteomyelitis have similar signal imaging characteristics and cannot entirely be excluded on the basis of these images. Clinical correlation and or correlation with three-phase bone scan may be helpful if clinically indicated. Impression: 1. Reticulation and edema within the circumferential subcutaneous soft tissues consistent with known cellulitis. More confluent fluid attenuated collection seen within the posterior calf at the level of the proximal tibia and fibula measuring up to 5.5 x 0.7 centimeters. This may represent some developing phlegmonous changes however no discrete abscess collection is identified. 2. Diffuse decreased T1 signal throughout the visualized musculature suggestive for muscle atrophy. 3. Focal signal abnormality seen within the mid medullary cavity of the midshaft of the fibula best seen on series 5, image 34 with associated mild increased STIR signal. This is of uncertain clinical etiology and may represent focal hematopoietic marrow reconversion versus prominent traversing vessel versus mild acute infectious and or inflammatory changes. No gross increased STIR signal seen within the surrounding musculature or soft tissues at this level. 4. Prominent signal abnormality seen within the distal fibula and tibia with bony destructive changes as well as signal abnormality with bony destructive changes in the majority of the visualized mid and hindfoot with decreased T1 signal and increased STIR signal. In correlation with the plain x-ray, these findings may be related to underlying neuropathic change and or Charcot arthropathy however underlying acute infectious changes such as acute osteomyelitis have similar signal imaging characteristics and cannot entirely be excluded on the basis of these images. Clinical correlation and or correlation with three-phase bone scan may be helpful if clinically indicated.
--- NOTE | 2016-09-05 13:48 | PN ---
DATE: 09/05/2016 ROOM: 423 ICU. This is a 46-year-old female with recent uncontrolled type 2 insulin-requiring diabetes, now being fo llowed closely for metabolic management. Her glucose values are fluctuating, ranging from 177-254 mg/dL. Her latest chemistries showed a BUN of 18, sodium 138, potassium 4.0, chloride 97, CO2 25, glucose 230 and creatinine 4.7. So at this time, we will modify her basal and bolus insulin regimen and increase the basal insulin wi th Levemir to be given as 20 units subQ at bedtime daily to start tonight. We will continue the low- dose correction scale using Humalog insulin as given. We will also continue the low-dose Humalog giv en as 6 units subQ t.i.d. before meals as ordered. We will obtain serial chemistries and supplement accordingly as needed. We will also adjust her dose regimen prudently and titrate upwards as indicat ed to optimize her metabolic control, especially in the light of multiple microvascular complications of retinopathy, polyneuropathy, and nephropathy with diabetic macrovascular complications of coronar y artery disease, peripheral arterial disease and vasculopathy and is currently being followed closel y for metabolic management as mentioned. So at this time, we will obtain serial chemistries and supp lement accordingly as needed. We will follow. Irene Ambrose MD cc: [id number] TT: 09/05/2016 13:47:31 Confirmation # [id number] Dictation # [id number]
--- NOTE | 2016-09-05 14:46 | CP.PCM.PN ---
Subjective - Date & Time of Evaluation Date of Evaluation: 09/05/16 Time of Evaluation: 14:33 - Subjective Subjective: Evaluations by consultants appreciated. Patient is a bit groggy as she was given po Dlaudid before MRI of foot and then Benadryl when when complained of itch. This did not appear to be a true allergy and may have been the itching that often occurs with opioids. So, MRI of the RLE was done and 3 phase bone scan is in progress. We hope this will tell us if there is osteomyelitis or not. On examination the right heel displays not so much an ulcer as skin covering a boggy understructure. This does have the characteristics of osteomyelitis. MRA of RLE is scheduled for tomorrow to determine how good/bad the LE vasculature is. The right foot is cold and there is no palpable DP pulse. As per discussion with Dr. Brian Pastrana we will await the results of these studies and then make a decision regarding the appropriate treatment. Since the patient is at such serious risk of coagulopathy, as soon as the MRA [ or arteriogram if necessary] is completed, I will restart the Eliquis and aspirin since we do not know when [of if] surgery will be done. No fevers althogh a recent temp of 99.4 is a concern. BP's are good, slight tachycardia. No dyspnea or chest pain. Diabetes is under much better control as per Dr. Ambrose. Patient continues on [address] Lemon and pulmonary treatments per Dr. Flores. Objective - Vital Signs/Intake and Output Vital Signs (last 24 hours): Temp Pulse Resp BP Pulse Ox 98.3 F 113 H 19 125/79 97 09/05/16 12:00 09/05/16 12:00 09/05/16 12:00 09/05/16 12:00 09/05/16 12:00 - Medications Medications: Current Medications Acetaminophen (Tylenol 325mg Tab) 650 mg PO Q4 PRN PRN Reason: Fever >100.4 F Last Admin: 08/28/16 15:23 Dose: 650 mg Acetaminophen (Tylenol 325mg Tab) 650 mg PO Q4 PRN PRN Reason: Pain, moderate (4-7) Last Admin: 09/03/16 03:33 Dose: 650 mg Acetylcysteine (Mucomyst 10% 4ml) 2 ml IH RBID [facility] Last Admin: 09/05/16 07:48 Dose: 2 ml Albuterol Sulfate (Albuterol 0.083% Inhal Barbie (2.5 Mg/3 Ml) Ud) 2.5 mg INH RBID [facility] Last Admin: 09/05/16 07:48 Dose: 2.5 mg Albuterol/Ipratropium (Duoneb 3 Mg/0.5 Mg (3 Ml) Ud) 3 ml INH RQ4 PRN PRN Reason: Shortness of Breath Last Admin: 09/05/16 02:15 Dose: 3 ml Apixaban (Eliquis) 5 mg PO BID [facility] PRN Reason: Protocol Last Admin: 09/05/16 08:46 Dose: Not Given Atorvastatin Calcium (Lipitor) 40 mg PO DAILY [facility] Last Admin: 09/05/16 08:49 Dose: 40 mg Benzonatate (Tessalon Perles) 200 mg PO TID PRN PRN Reason: Cough Last Admin: 09/05/16 08:53 Dose: 200 mg Cinacalcet (Sensipar) 30 mg PO DAILY [facility] Last Admin: 09/05/16 08:52 Dose: 30 mg Collagenase (Santyl) 1 applic TOP DAILY [facility] Last Admin: 09/04/16 08:00 Dose: 1 applic Docusate Sodium (Colace) 200 mg PO BID [facility] Last Admin: 09/05/16 08:44 Dose: Not Given Epoetin Tha (Procrit) 20,000 unit IV MWF [facility] Last Admin: 09/04/16 10:55 Dose: 20,000 unit Guaifenesin/Dextromethorphan (Mucinex-Dm 600-30 Mg) 1 tab PO BID [facility] Hydrocortisone (Anusol-Hc) 1 applic [place] BID [facility] Last Admin: 09/05/16 12:32 Dose: 1 applic Piperacillin Sod/Tazobactam (Sod 2.25 gm/ Sodium Chloride) 100 mls @ 100 mls/ hr IVPB Q12 [facility] Last Admin: 09/05/16 08:54 Dose: 100 mls/hr Linezolid (Zyvox 600mg/300ml D5w) 300 mls @ 300 mls/hr IVPB Q12 [facility] Last Admin: 09/05/16 08:55 Dose: 300 mls/hr Meropenem 500 mg/ Sodium (Chloride) 100 mls @ 100 mls/hr IVPB DAILY [facility] Last Admin: 09/05/16 08:50 Dose: 100 mls/hr Sodium Chloride (Sodium Chloride 0.9%) 250 mls @ 999 mls/hr IV .Q16M [facility] Last Admin: 08/30/16 05:36 Dose: 999 mls/hr Amikacin Sulfate 250 mg/ (Sodium Chloride) 101 mls @ 100.609 mls/hr IVPB MWF [facility] Last Admin: 09/04/16 14:00 Dose: 100.609 mls/hr Insulin Detemir (Levemir) 20 units SC HS [facility] Insulin Human Lispro (Humalog) 6 units SC AC [facility] Last Admin: 09/05/16 08:47 Dose: 6 units Lidocaine (Lidoderm) 1 ea TD DAILY [facility] Last Admin: 09/05/16 08:48 Dose: 1 ea Nystatin (Nystop Topical Powder) 1 applic TOP TID [facility] Last Admin: 09/05/16 08:51 Dose: 1 applic Ondansetron HCl (Zofran Inj) 4 mg IVP Q6 PRN PRN Reason: Nausea/Vomiting Last Admin: 09/02/16 12:11 Dose: 4 mg Pantoprazole Sodium (Protonix Ec Tab) 40 mg PO DAILY [facility] Sevelamer HCl (Renagel) 1,600 mg PO TID [facility] Last Admin: 09/05/16 08:52 Dose: 1,600 mg Topiramate (Topamax) 50 mg PO BID [facility] Last Admin: 09/05/16 12:33 Dose: 50 mg Vitamin B Complex/Vit C/Folic Acid (Nephro-Ajay) 1 tab PO DAILY [facility] Last Admin: 09/05/16 08:51 Dose: 1 tab - Labs Labs: 09/05/16 05:25 09/05/16 05:25 PT 16.5 SECONDS (9.6-11.2) H 08/28/16 16:11 INR 1.59 (0.92-1.08) H 08/28/16 16:11 APTT 38.7 SECONDS (23.3-32.5) H 08/28/16 16:11 - Constitutional Appears: No Acute Distress - Head Exam Head Exam: NORMAL INSPECTION - Eye Exam Eye Exam: Normal appearance - ENT Exam ENT Exam: Mucous Membranes Moist - Neck Exam Neck Exam: Normal Inspection Additional comments: Right subclavian Permacath is intact and clear. - Respiratory Exam Respiratory Exam: Clear to Ausculation Bilateral Additional comments: Some atelectatic crackles at the bases. - Cardiovascular Exam Cardiovascular Exam: REGULAR RHYTHM, +S1, +S2 - GI/Abdominal Exam GI & Abdominal Exam: Soft, Normal Bowel Sounds Additional comments: Bowel movement was mushy but brown. - Extremities Exam Additional comments: Right foot is blackened and cold. There is no palpable DP or PT pulse. Toes have appearance of early dry gangrene. There is no sensation in the toes and decreased sensation in the heel. The ankle joint is floppy and cannot of itself support the leg without bracing (which caused the heel The ulcer in the first place). There is no so much an ulcer as what appears to be a [place] of devitalized skin approx 2 cm in diameter sitting on top of eugenie understructure. There is no bleeding and very little ooze around the periphery of the "ulcer." L BK residual limb is warm, dry, and without lesions. R upper arm PICC line is functioning and intact. Hands are as previously described. - Back Exam Back Exam: NORMAL INSPECTION - Neurological Exam Neurological Exam: Alert, CN II-XII Intact, Oriented x3 - Psychiatric Exam Psychiatric exam: Normal Affect, Normal Mood - Skin Additional comments: See extremities. Assessment and Plan (1) ESRD (end stage renal disease) on dialysis Assessment & Plan: SEE SUBJECTIVE Status: Chronic (2) DM type 2 (diabetes mellitus, type 2) Assessment & Plan: SEE SUBJECTIVE Status: Chronic (3) Coagulopathy Assessment & Plan: SEE SUBJECTIVE Status: Chronic (4) Peripheral arterial occlusive disease Assessment & Plan: SEE SUBJECTIVE Status: Chronic (5) Ulcer of right heel Assessment & Plan: SEE SUBJECTIVE Clinically this looks like osteomyelitis of the heel. In the setting of diabeter mellitus and periopheral arterial disease, the only appropriate treatment is amputation. If it is not osteomyelitis, we are still faced with the problem of a non-healing ulcer in a Charcot foot with sever arterial insufficiency and the need to wear a brace-boot that rubs (despite repeated adjustments) and causes ulceration without sensation (due to nerve damage). In such a case, amputation is also a reasonable treatment. Once the test results are back, further discussions will take place. I will note that both the patient and her mother are accepting of the idea of possible amputation. Status: Resolved (6) SIRS (systemic inflammatory response syndrome) Status: Acute (7) Pneumonia Assessment & Plan: Improving SEE SUBJECTIVE Status: Acute
--- NOTE | 2016-09-05 18:48 | NM ---
PROCEDURE: Whole Body Bone Scan HISTORY: r/o osteomyelitis right lower extremity COMPARISON: September 04, 2016. MRI a right foot 08/27/2016 x-ray right foot TECHNIQUE: Following administration of 24.1 miCu of Tc MDP multiplanar whole body images were obtained. FINDINGS: Flow component: Increased flow to the right ankle Blood pool component: Accumulation of radionuclide at the level of the distal tibia and fibula. Delayed images at 3:00: Retention of radionuclide distal tibia, fibula at and talar region. IMPRESSION: Findings consistent with cellulitis without compelling evidence for acute osteomyelitis.
[2016-09-05] MEDS: guaiFENesin-DM 600-30 mg ER Tab PO SCH (21:31)
[2016-09-05] MEDS ORDERED: Insulin Detemir 100 Units/ml Inj SC SCH (22:00)
--- NOTE | 2016-09-06 01:49 | CP.PCM.PN ---
Subjective - Date & Time of Evaluation Date of Evaluation: 09/05/16 Time of Evaluation: 20:05 - Subjective Subjective: No seizures on topamax 50 mg Q12 hrs, she had an MRI Leg and a Bone scan that didn't show Osteomyelitis/ It showed only cellulitis, which is not an indication for an amputation. She looks responding to her current management and Antibiotics. Objective - Vital Signs/Intake and Output Vital Signs (last 24 hours): Temp Pulse Resp BP Pulse Ox 99.8 F H 123 H 25 H 93/75 L 99 09/05/16 23:55 09/05/16 23:55 09/05/16 23:55 09/05/16 23:55 09/05/16 23:55 Intake and Output: 09/05/16 09/06/16 18:59 06:59 Intake Total 800 400 Output Total 0 Balance 800 400 - Medications Medications: Current Medications Acetaminophen (Tylenol 325mg Tab) 650 mg PO Q4 PRN PRN Reason: Fever >100.4 F Last Admin: 08/28/16 15:23 Dose: 650 mg Acetaminophen (Tylenol 325mg Tab) 650 mg PO Q4 PRN PRN Reason: Pain, moderate (4-7) Last Admin: 09/03/16 03:33 Dose: 650 mg Acetylcysteine (Mucomyst 10% 4ml) 2 ml IH RBID [facility] Last Admin: 09/05/16 19:33 Dose: 2 ml Albuterol Sulfate (Albuterol 0.083% Inhal Barbie (2.5 Mg/3 Ml) Ud) 2.5 mg INH RBID [facility] Last Admin: 09/05/16 19:34 Dose: 2.5 mg Albuterol/Ipratropium (Duoneb 3 Mg/0.5 Mg (3 Ml) Ud) 3 ml INH RQ4 PRN PRN Reason: Shortness of Breath Last Admin: 09/05/16 02:15 Dose: 3 ml Apixaban (Eliquis) 5 mg PO BID [facility] PRN Reason: Protocol Last Admin: 09/05/16 08:46 Dose: Not Given Atorvastatin Calcium (Lipitor) 40 mg PO DAILY [facility] Last Admin: 09/05/16 08:49 Dose: 40 mg Benzonatate (Tessalon Perles) 200 mg PO TID PRN PRN Reason: Cough Last Admin: 09/05/16 08:53 Dose: 200 mg Cinacalcet (Sensipar) 30 mg PO DAILY [facility] Last Admin: 09/05/16 08:52 Dose: 30 mg Collagenase (Santyl) 1 applic TOP DAILY [facility] Last Admin: 09/04/16 08:00 Dose: 1 applic Docusate Sodium (Colace) 200 mg PO BID [facility] Last Admin: 09/05/16 17:05 Dose: Not Given Epoetin Tha (Procrit) 20,000 unit IV [facility] Last Admin: 09/04/16 10:55 Dose: 20,000 unit Guaifenesin/Dextromethorphan (Mucinex-Dm 600-30 Mg) 1 tab PO BID [facility] Last Admin: 09/05/16 21:31 Dose: 1 tab Hydrocortisone (Anusol-Hc) 1 applic [place] BID [facility] Last Admin: 09/05/16 17:43 Dose: Not Given Piperacillin Sod/Tazobactam (Sod 2.25 gm/ Sodium Chloride) 100 mls @ 100 mls/ hr IVPB Q12 [facility] Last Admin: 09/05/16 20:15 Dose: 100 mls/hr Linezolid (Zyvox 600mg/300ml D5w) 300 mls @ 300 mls/hr IVPB Q12 [facility] Last Admin: 09/05/16 20:16 Dose: 300 mls/hr Meropenem 500 mg/ Sodium (Chloride) 100 mls @ 100 mls/hr IVPB DAILY [facility] Last Admin: 09/05/16 08:50 Dose: 100 mls/hr Sodium Chloride (Sodium Chloride 0.9%) 250 mls @ 999 mls/hr IV .Q16M [facility] Last Admin: 08/30/16 05:36 Dose: 999 mls/hr Amikacin Sulfate 250 mg/ (Sodium Chloride) 101 mls @ 100.609 mls/hr IVPB MWF [facility] Last Admin: 09/04/16 14:00 Dose: 100.609 mls/hr Insulin Detemir (Levemir) 20 units SC HS [facility] Last Admin: 09/05/16 21:39 Dose: 20 units Insulin Human Lispro (Humalog) 6 units SC AC [facility] Last Admin: 09/05/16 17:08 Dose: 6 units Lidocaine (Lidoderm) 1 ea TD DAILY [facility] Last Admin: 09/05/16 08:48 Dose: 1 ea Mupirocin (Bactroban Ointment) 1 applic TOP BID [facility] Last Admin: 09/05/16 20:12 Dose: 1 applic Nystatin (Nystop Topical Powder) 1 applic TOP TID [facility] Last Admin: 09/05/16 17:12 Dose: Not Given Nystatin (Mycostatin Oint) 1 applic TOP TID [facility] Ondansetron HCl (Zofran Inj) 4 mg IVP Q6 PRN PRN Reason: Nausea/Vomiting Last Admin: 09/02/16 12:11 Dose: 4 mg Pantoprazole Sodium (Protonix Ec Tab) 40 mg PO DAILY [facility] Sevelamer HCl (Renagel) 1,600 mg PO TID [facility] Last Admin: 09/05/16 17:14 Dose: 1,600 mg Topiramate (Topamax) 50 mg PO BID [facility] Last Admin: 09/05/16 17:14 Dose: 50 mg Vitamin B Complex/Vit C/Folic Acid (Nephro-Ajay) 1 tab PO DAILY [facility] Last Admin: 09/05/16 08:51 Dose: 1 tab - Labs Labs: 09/05/16 05:25 09/05/16 05:25 PT 16.5 SECONDS (9.6-11.2) H 08/28/16 16:11 INR 1.59 (0.92-1.08) H 08/28/16 16:11 APTT 38.7 SECONDS (23.3-32.5) H 08/28/16 16:11 Assessment and Plan (1) Diabetes Status: Chronic (2) ESRD (end stage renal disease) Status: Chronic (3) Cellulitis of leg Status: Acute (4) Hyperlipidemia Status: Acute (5) Back pain Status: Acute (6) Bacteremia due to Gram-negative bacteria Status: Acute (7) Diabetes mellitus type 2 with peripheral artery disease Status: Acute (8) PVD (peripheral vascular disease) Status: Acute
[2016-09-06 06:52] LABS: ALB/GLOB RATIO 0.7 (1.0-2.1); BILIRUBIN,TOTAL 0.6 mg/dl (0.2-1.3); CALCIUM 8.5 mg/dL (8.4-10.2); POTASSIUM 3.8 MMOL/L (3.6-5.0)
[2016-09-06] MEDS: Insulin Lispro (humaLOG) 100 Units/ml Inj SC SCH ×3 (06:53→17:10)
--- NOTE | 2016-09-06 07:23 | CP.PCM.PN ---
Subjective - Date & Time of Evaluation Date of Evaluation: 09/06/16 Time of Evaluation: 17:00 - Subjective Subjective: Attempted to see pt today, however pt is in dialysis at time of visit. Dressing to be kept c/d/i to the right foot. Will see tomorrow Objective - Vital Signs/Intake and Output Vital Signs (last 24 hours): Temp Pulse Resp BP Pulse Ox 98.8 F 113 H 25 H 146/76 99 09/06/16 04:00 09/06/16 06:00 09/06/16 06:00 09/06/16 06:00 09/06/16 06:00 Intake and Output: 09/06/16 09/06/16 06:59 18:59 Intake Total 400 Output Total 0 Balance 400 - Medications Medications: Current Medications Acetaminophen (Tylenol 325mg Tab) 650 mg PO Q4 PRN PRN Reason: Fever >100.4 F Last Admin: 08/28/16 15:23 Dose: 650 mg Acetaminophen (Tylenol 325mg Tab) 650 mg PO Q4 PRN PRN Reason: Pain, moderate (4-7) Last Admin: 09/03/16 03:33 Dose: 650 mg Acetylcysteine (Mucomyst 10% 4ml) 2 ml IH RBID [facility] Last Admin: 09/05/16 19:33 Dose: 2 ml Albuterol Sulfate (Albuterol 0.083% Inhal Barbie (2.5 Mg/3 Ml) Ud) 2.5 mg INH RBID [facility] Last Admin: 09/05/16 19:34 Dose: 2.5 mg Albuterol/Ipratropium (Duoneb 3 Mg/0.5 Mg (3 Ml) Ud) 3 ml INH RQ4 PRN PRN Reason: Shortness of Breath Last Admin: 09/05/16 02:15 Dose: 3 ml Apixaban (Eliquis) 5 mg PO BID [facility] PRN Reason: Protocol Last Admin: 09/05/16 08:46 Dose: Not Given Atorvastatin Calcium (Lipitor) 40 mg PO DAILY [facility] Last Admin: 09/05/16 08:49 Dose: 40 mg Benzonatate (Tessalon Perles) 200 mg PO TID PRN PRN Reason: Cough Last Admin: 09/05/16 08:53 Dose: 200 mg Cinacalcet (Sensipar) 30 mg PO DAILY [facility] Last Admin: 09/05/16 08:52 Dose: 30 mg Collagenase (Santyl) 1 applic TOP DAILY [facility] Last Admin: 09/04/16 08:00 Dose: 1 applic Docusate Sodium (Colace) 200 mg PO BID [facility] Last Admin: 09/05/16 17:05 Dose: Not Given Epoetin Tha (Procrit) 20,000 unit IV [facility] Last Admin: 09/04/16 10:55 Dose: 20,000 unit Guaifenesin/Dextromethorphan (Mucinex-Dm 600-30 Mg) 1 tab PO BID [facility] Last Admin: 09/05/16 21:31 Dose: 1 tab Hydrocortisone (Anusol-Hc) 1 applic [place] BID [facility] Last Admin: 09/05/16 17:43 Dose: Not Given Piperacillin Sod/Tazobactam (Sod 2.25 gm/ Sodium Chloride) 100 mls @ 100 mls/ hr IVPB Q12 [facility] Last Admin: 09/05/16 20:15 Dose: 100 mls/hr Linezolid (Zyvox 600mg/300ml D5w) 300 mls @ 300 mls/hr IVPB Q12 [facility] Last Admin: 09/05/16 20:16 Dose: 300 mls/hr Meropenem 500 mg/ Sodium (Chloride) 100 mls @ 100 mls/hr IVPB DAILY [facility] Last Admin: 09/05/16 08:50 Dose: 100 mls/hr Sodium Chloride (Sodium Chloride 0.9%) 250 mls @ 999 mls/hr IV .Q16M [facility] Last Admin: 08/30/16 05:36 Dose: 999 mls/hr Amikacin Sulfate 250 mg/ (Sodium Chloride) 101 mls @ 100.609 mls/hr IVPB [facility] Last Admin: 09/04/16 14:00 Dose: 100.609 mls/hr Insulin Detemir (Levemir) 20 units SC HS [facility] Last Admin: 09/05/16 21:39 Dose: 20 units Insulin Human Lispro (Humalog) 6 units SC AC [facility] Last Admin: 09/06/16 06:53 Dose: 6 units Lidocaine (Lidoderm) 1 ea TD DAILY [facility] Last Admin: 09/05/16 08:48 Dose: 1 ea Mupirocin (Bactroban Ointment) 1 applic TOP BID [facility] Last Admin: 09/05/16 20:12 Dose: 1 applic Nystatin (Nystop Topical Powder) 1 applic TOP TID [facility] Last Admin: 09/05/16 17:12 Dose: Not Given Nystatin (Mycostatin Oint) 1 applic TOP TID [facility] Ondansetron HCl (Zofran Inj) 4 mg IVP Q6 PRN PRN Reason: Nausea/Vomiting Last Admin: 09/02/16 12:11 Dose: 4 mg Pantoprazole Sodium (Protonix Ec Tab) 40 mg PO DAILY [facility] Sevelamer HCl (Renagel) 1,600 mg PO TID [facility] Last Admin: 09/05/16 17:14 Dose: 1,600 mg Topiramate (Topamax) 50 mg PO BID [facility] Last Admin: 09/05/16 17:14 Dose: 50 mg Vitamin B Complex/Vit C/Folic Acid (Nephro-Ajay) 1 tab PO DAILY [facility] Last Admin: 09/05/16 08:51 Dose: 1 tab - Labs Labs: 09/05/16 05:25 09/06/16 06:00 PT 16.5 SECONDS (9.6-11.2) H 08/28/16 16:11 INR 1.59 (0.92-1.08) H 08/28/16 16:11 APTT 38.7 SECONDS (23.3-32.5) H 08/28/16 16:11
--- NOTE | 2016-09-06 07:33 | CP.CCUPN ---
CCU Subjective - Physician Review Subjective (Free Text): 09/06/16 7:30 46 year old female with PMHx of ESRD on HD (3 times a week) , HTN, DM type 2, Protein C/ Protein S deficiency ,Severe PVD, chronic disease anemia was admitted for RLE cellulites transfer to ICU for code sepsis. Patient was seen and examined at bedside this morning. Patient has afebrile, tachycardia with HR of 112 bpm, BP of 117/47 RR 20 and Sat O2 100 % on 2L O2 nasal cannula. Patient leukocytosis is improving and receiving amikacin, meropenem, zosyn and zyvox. Patient had done 3 phase bone and MRI on yesterday however MRI ankle and foot has to repeat it today. Patient also schedule CT angio today and will do dialysis after that. Patient will resume eliquis and aspirin after CT angio today. Patient is Denies fever, SOB, chest pain, diarrhea, headache and dizziness. CCU Objective - Vital Signs / Intake & Output Vital Signs (Last 4 hours): Vital Signs Temp Pulse Resp BP Pulse Ox 09/06/16 06:00 113 H 25 H 146/76 99 09/06/16 04:00 98.8 F 112 H 20 117/47 L 97 Intake and Output (Last 8hrs): Intake & Output 09/05/16 09/06/16 09/06/16 22:59 06:59 14:59 Intake Total 1200 0 Output Total 0 0 Balance 1200 0 Intake: IV 0 Intake, Piggyback 900 Oral 300 Output: Urine 0 0 Urine, Voided 0 0 Other: # Bowel Movements 2 1 - Physical Exam Head: Positive for: Atraumatic, Normocephalic Pupils: Positive for: PERRL Pharnyx: Positive for: ERYTHEMA Neck: Positive for: Normal Range of Motion. Negative for: JVD Respiratory/Chest: Positive for: Wheezes (bibasilar), Other (Right SC dialysis catheter and PICC line on right arm). 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) Neurological: Positive for: Speech Normal, Other (Alert awake oriented x 3) Skin: Positive for: Warm, Normal Color Psychiatric: Positive for: Alert, Oriented x 3, Normal Insight, Normal Concentration - Medications Active Medications: Active Medications Generic Name Dose Route Start Last Admin Trade Name Freq PRN Reason Stop Dose Admin Acetaminophen 650 mg 08/28/16 00:09 08/28/16 15:23 Tylenol 325mg Tab PO 650 mg Q4 PRN Administration Fever >100.4 F Acetaminophen 650 mg 08/28/16 00:12 09/03/16 03:33 Tylenol 325mg Tab PO 650 mg Q4 PRN Administration Pain, moderate (4-7) Acetylcysteine 2 ml 09/03/16 20:00 09/05/16 19:33 Mucomyst 10% 4ml IH 2 ml RBID [facility] Administration Albuterol Sulfate 2.5 mg 09/03/16 20:00 09/05/16 19:34 Albuterol 0.083% Inhal Barbie (2.5 Mg/3 Ml) Ud INH 2.5 mg RBID [facility] Administration Albuterol/Ipratropium 3 ml 08/29/16 18:39 09/05/16 02:15 Duoneb 3 Mg/0.5 Mg (3 Ml) Ud INH 3 ml RQ4 PRN Administration Shortness of Breath Apixaban 5 mg 08/28/16 09:15 09/05/16 08:46 Eliquis PO Not Given BID [facility] Protocol Atorvastatin Calcium 40 mg 08/28/16 09:00 09/05/16 08:49 Lipitor PO 40 mg DAILY [facility] Administration Benzonatate 200 mg 09/04/16 16:13 09/05/16 08:53 Tessalon Perles PO 200 mg TID PRN Administration Cough Cinacalcet 30 mg 08/28/16 11:15 09/05/16 08:52 Sensipar PO 30 mg DAILY [facility] Administration Collagenase 1 applic 08/28/16 09:00 09/04/16 08:00 Santyl TOP 1 applic DAILY [facility] Administration Docusate Sodium 200 mg 08/28/16 09:00 09/05/16 17:05 Colace PO Not Given BID [facility] Epoetin Tha 20,000 unit 09/02/16 09:00 09/04/16 10:55 Procrit IV 20,000 unit F [facility] Administration Guaifenesin/Dextromethorphan 1 tab 09/05/16 17:00 09/05/16 21:31 Mucinex-Dm 600-30 Mg PO 1 tab BID [facility] Administration Hydrocortisone 1 applic 09/01/16 10:45 09/05/16 17:43 Anusol-Hc DC Not Given BID [facility] Piperacillin Sod/Tazobactam 100 mls @ 100 mls/hr 08/27/16 21:00 09/05/16 20: 15 Sod 2.25 gm/ Sodium Chloride IVPB 100 mls/hr Q12 [facility] Administration Linezolid 300 mls @ 300 mls/hr 08/27/16 21:00 09/05/16 20:16 Zyvox 600mg/300ml D5w IVPB 300 mls/hr Q12 [facility] Administration Meropenem 500 mg/ Sodium 100 mls @ 100 mls/hr 08/29/16 09:00 09/05/16 08:50 Chloride IVPB 100 mls/hr DAILY [facility] Administration Sodium Chloride 250 mls @ 999 mls/hr 08/29/16 23:30 08/30/16 05:36 Sodium Chloride 0.9% IV 999 mls/hr .Q16M [facility] Administration Amikacin Sulfate 250 mg/ 101 mls @ 100.609 mls/hr 09/04/16 09:00 09/04/16 14: 00 Sodium Chloride IVPB 100.609 mls/hr F [facility] Administration Insulin Detemir 20 units 09/05/16 22:00 09/05/16 21:39 Levemir SC 20 units HS [facility] Administration Insulin Human Lispro 6 units 09/04/16 16:30 09/06/16 06:53 Humalog SC 6 units AC [facility] Administration Lidocaine 1 ea 08/29/16 13:30 09/05/16 08:48 Lidoderm TD 1 ea DAILY [facility] Administration Mupirocin 1 applic 09/05/16 18:30 09/05/16 20:12 Bactroban Ointment TOP 1 applic BID [facility] Administration Nystatin 1 applic 09/02/16 13:00 09/05/16 17:12 Nystop Topical Powder TOP Not Given TID [facility] Nystatin 1 applic 09/06/16 09:00 Mycostatin Oint TOP TID [facility] Ondansetron HCl 4 mg 08/29/16 19:00 09/02/16 12:11 Zofran Inj IVP 4 mg Q6 PRN Administration Nausea/Vomiting Pantoprazole Sodium 40 mg 09/06/16 09:00 Protonix Ec Tab PO DAILY [facility] Sevelamer HCl 1,600 mg 08/28/16 11:11 09/05/16 17:14 Renagel PO 1,600 mg TID [facility] Administration Topiramate 50 mg 08/30/16 18:45 09/05/16 17:14 Topamax PO 50 mg BID [facility] Administration Vitamin B Complex/Vit C/Folic Acid 1 tab 08/28/16 09:00 09/05/16 08:51 Nephro-Ajay PO 1 tab DAILY [facility] Administration - Patient Studies Lab Studies: Microbiology Studies 08/31/16 09:23 Blood Culture - Final Blood NO GROWTH AFTER 5 DAYS Gram Stain - Final TEST NOT PERFORMED Lab Studies 09/06/16 09/06/16 09/05/16 Range/Units 06:00 04:58 21:38 Sodium 137 (132-148) mmol/l Potassium 3.8 (3.6-5.0) MMOL/L Chloride 99 (98-107) mmol/L Carbon Dioxide 24 (22-30) mmol/L Anion Gap 18 (10-20) BUN 26 H (7-17) mg/dl Creatinine 6.3 H (0.7-1.2) mg/dL Est GFR ( Amer) 9 Est GFR (Non-Af Amer) 7 POC Glucose (mg/dL) 238 H 335 H (65-110) mg/dL Random Glucose 214 H (65-105) mg/dL Calcium 8.5 (8.4-10.2) mg/dL Total Bilirubin 0.6 (0.2-1.3) mg/dl AST 31 (14-36) U/L ALT 30 (9-52) U/L Alkaline Phosphatase 184 H (38-126) U/L Total Protein 7.0 (6.3-8.2) G/DL Albumin 2.8 L (3.5-5.0) g/dL Globulin 4.2 H (2.2-3.9) gm/dL Albumin/Globulin Ratio 0.7 L (1.0-2.1) 09/05/16 Range/Units 17:04 Sodium (132-148) mmol/l Potassium (3.6-5.0) MMOL/L Chloride (98-107) mmol/L Carbon Dioxide (22-30) mmol/L Anion Gap (10-20) BUN (7-17) mg/dl Creatinine (0.7-1.2) mg/dL Est GFR ( Amer) Est GFR (Non-Af Amer) POC Glucose (mg/dL) 381 H (65-110) mg/dL Random Glucose (65-105) mg/dL Calcium (8.4-10.2) mg/dL Total Bilirubin (0.2-1.3) mg/dl AST (14-36) U/L ALT (9-52) U/L Alkaline Phosphatase (38-126) U/L Total Protein (6.3-8.2) G/DL Albumin (3.5-5.0) g/dL Globulin (2.2-3.9) gm/dL Albumin/Globulin Ratio (1.0-2.1) Laboratory Results - last 24 hr 09/05/16 09/05/16 09/06/16 17:04 21:38 04:58 Sodium Potassium Chloride Carbon Dioxide Anion Gap BUN Creatinine Est GFR ( Amer) Est GFR (Non-Af Amer) POC Glucose (mg/dL) 381 H 335 H 238 H Random Glucose Calcium Total Bilirubin AST ALT Alkaline Phosphatase Total Protein Albumin Globulin Albumin/Globulin Ratio 09/06/16 06:00 Sodium 137 Potassium 3.8 Chloride 99 Carbon Dioxide 24 Anion Gap 18 BUN 26 H Creatinine 6.3 H Est GFR ( Amer) 9 Est GFR (Non-Af Amer) 7 POC Glucose (mg/dL) Random Glucose 214 H Calcium 8.5 Total Bilirubin 0.6 AST 31 ALT 30 Alkaline Phosphatase 184 H Total Protein 7.0 Albumin 2.8 L Globulin 4.2 H Albumin/Globulin Ratio 0.7 L Fingerstick Blood Sugar Results: 238 Critical Care Progress Note - Nutrition Nutrition: Nutrition Category Date Time Status Renal Diet [DIET] Diets 08/30/16 Dinner Active Assessment/Plan (1) Sepsis associated hypotension Current Visit: Yes Status: Acute Comment: -improved with BP, afebrile and still tachy but better 110's -etiology probable to osteomyelitis -trending down leukocytosis 14.6->13.2 -right foot wound culture showed E.Coli sensitivity to all the medication (2016) -blood culture and permacath blood showed E.Coli ( 08/27/2016), 2x blood culture negative -continue with zosyn, zyvox and meropenem -monitor cbc and vitals (2) Ulcer of right foot Current Visit: Yes Status: Acute Comment: -Cellulitis of leg and ulceration with right foot -etiology possible osteomyelitis ? -wound culture showed E.Coli -continue with zosyn. 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 Although there is atherosclerotic disease distally flow documented in the popliteal artery and posterior tibial artery. Nondiagnostic assessment right dorsalis pedis artery. Nonvisualization right anterior tibial artery. - MRI was reviewed and showed 1. Reticulation and edema within the circumferential subcutaneous soft tissues consistent with known cellulitis. More confluent fluid attenuated collection seen within the posterior calf at the level of the proximal tibia and fibula measuring up to 5.5 x 0.7 centimeters. This may represent some developing phlegmonous changes however no discrete abscess collection is identified. 2. Diffuse decreased T1 signal throughout the visualized musculature suggestive for muscle atrophy. 3. Focal signal abnormality seen within the mid medullary cavity of the midshaft of the fibula best seen on series 5, image 34 with associated mild increased STIR signal. This is of uncertain clinical etiology and may represent focal hematopoietic marrow reconversion versus prominent traversing vessel versus mild acute infectious and or inflammatory changes. No gross increased STIR signal seen within the surrounding musculature or soft tissues at this level. 4. Prominent signal abnormality seen within the distal fibula and tibia with bony destructive changes as well as signal abnormality with bony destructive changes in the majority of the visualized mid and hindfoot with decreased T1 signal and increased STIR signal. In correlation with the plain x-ray, these findings may be related to underlying neuropathic change and or Charcot arthropathy however underlying acute infectious changes such as acute osteomyelitis have similar signal imaging characteristics and cannot entirely be excluded on the basis of these images. Clinical correlation and or correlation with three-phase bone scan may be helpful if clinically indicated. -3 phase bone scan was reviewed and showed Findings consistent with cellulitis without compelling evidence for acute osteomyelitis. -CT angio is schedule today -dialysis is schedule after CT angio -resume eliquis and aspirin after CT angio (3) Pneumonia Current Visit: No Status: Acute Comment: -afebrile -improving leukocytosis -chest xray showed Stable infiltrates right lower lobe. No new/ acute findings. No new/acute findings apparent. -multiple coverage antibiotic -duoneb q6h PRN -pulomonary PT (4) ESRD (end stage renal disease) on dialysis Current Visit: No Status: Chronic Comment: -HD ([facility]) ,schedule today -HD on MWF -BUN/Cr:26/6.3 -continue with renagel 1600mg TID and sensipar 30mg daily. -monitor BMP -renal diet (5) Hyperlipidemia Current Visit: Yes Status: Acute Comment: -continue with lipitor (6) PVD (peripheral vascular disease) Current Visit: Yes Status: Acute Comment: -resume eliquis -continue with lipitor (7) Diabetes mellitus type 2 with peripheral artery disease Current Visit: Yes Status: Acute Comment: -uncontrolled -HgA1C: 11 -monitor only bmp not accucheck -continue with humalog but hold detemir for now -Endo is on board (8) Coagulopathy Current Visit: No Status: Chronic Comment: -hx of Protein C & S deficiency and heparin antibodies -resume eliquis and aspirin after CT angio (9) DVT prophylaxis Current Visit: Yes Status: Acute Comment: -hx of protein c and S deficiency -resume eliquis and aspirin after CT angio
--- NOTE | 2016-09-06 07:42 | CP.PCM.PN ---
<Tabatha Servin - Last Filed: 09/06/16 07:56> Subjective - Date & Time of Evaluation Date of Evaluation: 09/06/16 Time of Evaluation: 07:40 - Subjective Subjective: General Surgery Progress Note 46 yo female patient seen and evaluated at bedside concerning possible right LE osteomyelitis. Reports no general pain or discomfort. Denies recent chills & fever. Denies recent n/v/sob/cp. Denies any other complaints at this time. Objective - Vital Signs/Intake and Output Vital Signs (last 24 hours): Temp Pulse Resp BP Pulse Ox 98.8 F 113 H 25 H 146/76 99 09/06/16 04:00 09/06/16 06:00 09/06/16 06:00 09/06/16 06:00 09/06/16 06:00 Intake and Output: 09/06/16 09/06/16 06:59 18:59 Intake Total 400 Output Total 0 Balance 400 - Medications Medications: Current Medications Acetaminophen (Tylenol 325mg Tab) 650 mg PO Q4 PRN PRN Reason: Fever >100.4 F Last Admin: 08/28/16 15:23 Dose: 650 mg Acetaminophen (Tylenol 325mg Tab) 650 mg PO Q4 PRN PRN Reason: Pain, moderate (4-7) Last Admin: 09/03/16 03:33 Dose: 650 mg Acetylcysteine (Mucomyst 10% 4ml) 2 ml IH RBID [facility] Last Admin: 09/05/16 19:33 Dose: 2 ml Albuterol Sulfate (Albuterol 0.083% Inhal Barbie (2.5 Mg/3 Ml) Ud) 2.5 mg INH RBID [facility] Last Admin: 09/05/16 19:34 Dose: 2.5 mg Albuterol/Ipratropium (Duoneb 3 Mg/0.5 Mg (3 Ml) Ud) 3 ml INH RQ4 PRN PRN Reason: Shortness of Breath Last Admin: 09/05/16 02:15 Dose: 3 ml Apixaban (Eliquis) 5 mg PO BID [facility] PRN Reason: Protocol Last Admin: 09/05/16 08:46 Dose: Not Given Atorvastatin Calcium (Lipitor) 40 mg PO DAILY [facility] Last Admin: 09/05/16 08:49 Dose: 40 mg Benzonatate (Tessalon Perles) 200 mg PO TID PRN PRN Reason: Cough Last Admin: 09/05/16 08:53 Dose: 200 mg Cinacalcet (Sensipar) 30 mg PO DAILY [facility] Last Admin: 09/05/16 08:52 Dose: 30 mg Collagenase (Santyl) 1 applic TOP DAILY [facility] Last Admin: 09/04/16 08:00 Dose: 1 applic Docusate Sodium (Colace) 200 mg PO BID [facility] Last Admin: 09/05/16 17:05 Dose: Not Given Epoetin Tha (Procrit) 20,000 unit IV MWF [facility] Last Admin: 09/04/16 10:55 Dose: 20,000 unit Guaifenesin/Dextromethorphan (Mucinex-Dm 600-30 Mg) 1 tab PO BID [facility] Last Admin: 09/05/16 21:31 Dose: 1 tab Hydrocortisone (Anusol-Hc) 1 applic [place] BID [facility] Last Admin: 09/05/16 17:43 Dose: Not Given Piperacillin Sod/Tazobactam (Sod 2.25 gm/ Sodium Chloride) 100 mls @ 100 mls/ hr IVPB Q12 [facility] Last Admin: 09/05/16 20:15 Dose: 100 mls/hr Linezolid (Zyvox 600mg/300ml D5w) 300 mls @ 300 mls/hr IVPB Q12 [facility] Last Admin: 09/05/16 20:16 Dose: 300 mls/hr Meropenem 500 mg/ Sodium (Chloride) 100 mls @ 100 mls/hr IVPB DAILY [facility] Last Admin: 09/05/16 08:50 Dose: 100 mls/hr Sodium Chloride (Sodium Chloride 0.9%) 250 mls @ 999 mls/hr IV .Q16M [facility] Last Admin: 08/30/16 05:36 Dose: 999 mls/hr Amikacin Sulfate 250 mg/ (Sodium Chloride) 101 mls @ 100.609 mls/hr IVPB MWF [facility] Last Admin: 09/04/16 14:00 Dose: 100.609 mls/hr Insulin Detemir (Levemir) 20 units SC HS [facility] Last Admin: 09/05/16 21:39 Dose: 20 units Insulin Human Lispro (Humalog) 6 units SC AC [facility] Last Admin: 09/06/16 06:53 Dose: 6 units Lidocaine (Lidoderm) 1 ea TD DAILY [facility] Last Admin: 09/05/16 08:48 Dose: 1 ea Mupirocin (Bactroban Ointment) 1 applic TOP BID [facility] Last Admin: 09/05/16 20:12 Dose: 1 applic Nystatin (Nystop Topical Powder) 1 applic TOP TID [facility] Last Admin: 09/05/16 17:12 Dose: Not Given Nystatin (Mycostatin Oint) 1 applic TOP TID [facility] Ondansetron HCl (Zofran Inj) 4 mg IVP Q6 PRN PRN Reason: Nausea/Vomiting Last Admin: 09/02/16 12:11 Dose: 4 mg Pantoprazole Sodium (Protonix Ec Tab) 40 mg PO DAILY [facility] Sevelamer HCl (Renagel) 1,600 mg PO TID [facility] Last Admin: 09/05/16 17:14 Dose: 1,600 mg Topiramate (Topamax) 50 mg PO BID [facility] Last Admin: 09/05/16 17:14 Dose: 50 mg Vitamin B Complex/Vit C/Folic Acid (Nephro-Ajay) 1 tab PO DAILY [facility] Last Admin: 09/05/16 08:51 Dose: 1 tab - Labs Labs: 09/05/16 05:25 09/06/16 06:00 PT 16.5 SECONDS (9.6-11.2) H 08/28/16 16:11 INR 1.59 (0.92-1.08) H 08/28/16 16:11 APTT 38.7 SECONDS (23.3-32.5) H 08/28/16 16:11 - Constitutional Appears: Non-toxic, No Acute Distress, Chronically Ill - Respiratory Exam Respiratory Exam: NORMAL BREATHING PATTERN. absent: Chest Wall Tenderness, Decreased Breath Sounds - GI/Abdominal Exam GI & Abdominal Exam: Soft, Normal Bowel Sounds - Extremities Exam Additional comments: Right severe varus deformity of ankle. Slight tenderness noted to deep palpation of calf/posterior leg. Right heel necrotic echar, absent drainage, erythema of other acute signs of infection. Left Leg below knee amputation. Multiple digita amputations to hands bilaterally. - Neurological Exam Neurological Exam: Alert, Oriented x3 - Psychiatric Exam Psychiatric exam: Normal Affect, Normal Mood Assessment and Plan - Assessment and Plan (Free Text) Assessment: 46 yo female patient w/ pmhx of HTN, ESRD (on dialysis), coagulopathy, DM, charcot right foot PVD 1) sepsis 2) right heel ulceration, Charcot Arhtropathy and potential Calcaneal OM. Plan: Pt seen and evaluated. - Continue antibiotics as per ID - Bone scan results reviewed. - f/u foot MRI & CT-Angiogram. - Repeat labs in am - Will follow D/W Dr. Villarreal <Enmanuel Villarreal - Last Filed: 09/06/16 10:44> Subjective - Date & Time of Evaluation Time of Evaluation: 10:15 - Subjective Subjective: Patient was seen and examined at the bedside. Agree with resident's note above Objective - Vital Signs/Intake and Output Vital Signs (last 24 hours): Temp Pulse Resp BP Pulse Ox 98.8 F 113 H 25 H 146/76 99 09/06/16 04:00 09/06/16 06:00 09/06/16 06:00 09/06/16 06:00 09/06/16 06:00 Intake and Output: 09/06/16 09/06/16 06:59 18:59 Intake Total 400 Output Total 0 Balance 400 - Medications Medications: Current Medications Acetaminophen (Tylenol 325mg Tab) 650 mg PO Q4 PRN PRN Reason: Fever >100.4 F Last Admin: 08/28/16 15:23 Dose: 650 mg Acetaminophen (Tylenol 325mg Tab) 650 mg PO Q4 PRN PRN Reason: Pain, moderate (4-7) Last Admin: 09/03/16 03:33 Dose: 650 mg Acetylcysteine (Mucomyst 10% 4ml) 2 ml IH RBID [facility] Last Admin: 09/06/16 08:14 Dose: 2 ml Albuterol Sulfate (Albuterol 0.083% Inhal Barbie (2.5 Mg/3 Ml) Ud) 2.5 mg INH RBID [facility] Last Admin: 09/06/16 08:13 Dose: 2.5 mg Albuterol/Ipratropium (Duoneb 3 Mg/0.5 Mg (3 Ml) Ud) 3 ml INH RQ4 PRN PRN Reason: Shortness of Breath Last Admin: 09/05/16 02:15 Dose: 3 ml Apixaban (Eliquis) 5 mg PO BID [facility] PRN Reason: Protocol Last Admin: 09/05/16 08:46 Dose: Not Given Atorvastatin Calcium (Lipitor) 40 mg PO DAILY [facility] Last Admin: 09/06/16 08:58 Dose: 40 mg Benzonatate (Tessalon Perles) 200 mg PO TID PRN PRN Reason: Cough Last Admin: 09/06/16 10:00 Dose: 200 mg Cinacalcet (Sensipar) 30 mg PO DAILY [facility] Last Admin: 09/06/16 09:02 Dose: 30 mg Collagenase (Santyl) 1 applic TOP DAILY [facility] Last Admin: 09/06/16 09:01 Dose: 1 applic Docusate Sodium (Colace) 200 mg PO BID [facility] Last Admin: 09/06/16 08:57 Dose: Not Given Epoetin Tha (Procrit) 20,000 unit IV [facility] Last Admin: 09/04/16 10:55 Dose: 20,000 unit Guaifenesin/Dextromethorphan (Mucinex-Dm 600-30 Mg) 1 tab PO BID [facility] Last Admin: 09/06/16 08:59 Dose: 1 tab Hydrocortisone (Anusol-Hc) 1 applic NJ BID [facility] Last Admin: 09/06/16 08:56 Dose: Not Given Piperacillin Sod/Tazobactam (Sod 2.25 gm/ Sodium Chloride) 100 mls @ 100 mls/ hr IVPB Q12 [facility] Last Admin: 09/06/16 09:03 Dose: 100 mls/hr Linezolid (Zyvox 600mg/300ml D5w) 300 mls @ 300 mls/hr IVPB Q12 [facility] Last Admin: 09/06/16 09:03 Dose: 300 mls/hr Meropenem 500 mg/ Sodium (Chloride) 100 mls @ 100 mls/hr IVPB DAILY [facility] Last Admin: 09/06/16 08:58 Dose: 100 mls/hr Sodium Chloride (Sodium Chloride 0.9%) 250 mls @ 999 mls/hr IV .Q16M [facility] Last Admin: 08/30/16 05:36 Dose: 999 mls/hr Amikacin Sulfate 250 mg/ (Sodium Chloride) 101 mls @ 100.609 mls/hr IVPB MWF [facility] Last Admin: 09/06/16 08:56 Dose: 100.609 mls/hr Insulin Detemir (Levemir) 20 units SC [facility] Last Admin: 09/05/16 21:39 Dose: 20 units Insulin Human Lispro (Humalog) 6 units SC AC [facility] Last Admin: 09/06/16 06:53 Dose: 6 units Lidocaine (Lidoderm) 1 ea TD DAILY [facility] Last Admin: 09/06/16 08:57 Dose: Not Given Mupirocin (Bactroban Ointment) 1 applic TOP BID [facility] Last Admin: 09/06/16 08:57 Dose: 1 applic Nystatin (Nystop Topical Powder) 1 applic TOP TID [facility] Last Admin: 09/05/16 17:12 Dose: Not Given Nystatin (Mycostatin Oint) 1 applic TOP TID [facility] Last Admin: 09/06/16 09:00 Dose: 1 applic Ondansetron HCl (Zofran Inj) 4 mg IVP Q6 PRN PRN Reason: Nausea/Vomiting Last Admin: 09/02/16 12:11 Dose: 4 mg Pantoprazole Sodium (Protonix Ec Tab) 40 mg PO DAILY [facility] Last Admin: 09/06/16 09:01 Dose: 40 mg Sevelamer HCl (Renagel) 1,600 mg PO TID [facility] Last Admin: 09/06/16 09:01 Dose: 1,600 mg Topiramate (Topamax) 50 mg PO BID [facility] Last Admin: 09/06/16 09:02 Dose: 50 mg Vitamin B Complex/Vit C/Folic Acid (Nephro-Ajay) 1 tab PO DAILY [facility] Last Admin: 09/06/16 09:00 Dose: 1 tab - Labs Labs: 09/06/16 06:00 09/06/16 06:00 PT 16.5 SECONDS (9.6-11.2) H 08/28/16 16:11 INR 1.59 (0.92-1.08) H 08/28/16 16:11 APTT 38.7 SECONDS (23.3-32.5) H 08/28/16 16:11 Assessment and Plan - Assessment and Plan (Free Text) Plan: - No general surgery intervention at present time - Continue antibiotics as per ID - Continue care as per ICU and medical teams - Surgery will sign off - Please re-consult as needed
[2016-09-06 07:57] LABS: BASO # 0.1 K/uL (0.0-0.2); BASO % 1.1 % (0.0-2.0); EOS # 0.2 K/uL (0.0-0.7); EOS % 1.5 % (0.0-4.0); HEMATOCRIT 26.7 % (34.0-47.0); LYMPH # 1.3 K/uL (1.0-4.3); LYMPH % 9.6 % (20.0-40.0); MEAN CELL VOLUME 93.7 fl (81.0-99.0); MEAN CORPUSCULAR HEMOGLOBIN 29.3 pg (27.0-31.0); MEAN CORPUSCULAR HGB CONC 31.2 g/dL (33.0-37.0); MEAN PLATELET VOLUME 9.9 fl (7.2-11.7); MONO # 2.1 K/uL (0.0-0.8); NEUT # 9.5 K/uL (1.8-7.0); NEUT % 71.8 % (50.0-75.0); NRBC % 0.1 % (0.0-0.0); PLATELET COUNT 291 K/uL (130-400); RED CELL DISTRIBUTION WIDTH 20.8 % (11.5-14.5); WHITE BLOOD COUNT 13.2 K/uL (4.8-10.8)
[2016-09-06] MEDS: Albuterol 0.083% Inhal Sol (2.5 mg/3 mL) UD INH SCH ×2 (08:13→20:16)
[2016-09-06] MEDS: Acetylcysteine 10% 4 ML IH SCH ×2 (08:14→20:16)
[2016-09-06] MEDS ORDERED: HYDROmorphone 0.5 mg/0.5 ml ISec IVP STA (08:28)
[2016-09-06] MEDS: Hydrocortisone 2.5% (Rectal) CREAM PR SCH ×2 (08:56→17:09)
[2016-09-06] MEDS: Lidocaine 5% Patch TD SCH (08:57)
[2016-09-06] MEDS: Meropenem 500 MG in Sodium Chloride 0.9% 100 ML IVPB SCH (08:58)
[2016-09-06] MEDS: guaiFENesin-DM 600-30 mg ER Tab PO SCH ×2 (08:59→17:10)
[2016-09-06] MEDS: Nystatin Ointment TOP SCH ×3 (09:00→17:10)
[2016-09-06] MEDS: Santyl Collagenase OINTMENT TOP SCH ×2 (09:00→09:01)
[2016-09-06] MEDS: Multivitamin Vitamin B Complex (Nephro-Vite) Tab PO SCH (09:00)
[2016-09-06] MEDS: Pantoprazole 40 mg EC Tab PO SCH (09:01)
[2016-09-06] MEDS: Linezolid 600 mg in D5W 300 ml 300 ML IVPB SCH ×2 (09:03→21:44)
[2016-09-06 10:57] LABS: EOSINOPHIL 2 % (0-7); NEUTROPHIL 78 % (42-75); NUCLEATED RED BLOOD CELL 1 % (0-0); TOTAL CELLS COUNTED 100
[2016-09-06 10:58] LABS: LARGE PLATELETS PRESENT
[2016-09-06 10:59] LABS: GIANT PLATELETS PRESENT
[2016-09-06] MEDS ORDERED: Iodixanol 320 MG/ML 100 ML BOTTLE IV ONE (12:31)
[2016-09-06] MEDS ORDERED: Sodium Chloride 0.9% 50 ML IV ONE (12:31)
--- NOTE | 2016-09-06 13:28 | PN ---
DATE: 09/06/2016 In ICU room 421. This is a 46-year-old female with recent uncontrolled type 2 insulin-requiring diabetes, presenting h ere with a nonhealing right heel neuropathic ulceration with possible osteomyelitis and now undergoin g vascular workup and multispecialty management, and is also being followed closely for metabolic man agement. Her glycemic levels are fluctuating, but improved, and the latest glucose values have ranged from 238 -381 and 335 mg/dL. Her latest chemistries include a BUN of 26, sodium 137, potassium 3.8, chloride 99, CO2 14 and creatinine 6.3. So at this time, as the patient's oral intake has improved remarkably, then we will titrate upwards h er basal and bolus insulin regimen to optimize metabolic control thereof. We will increase her Levem ir to 24 units subQ at bedtime daily to start tonight. We will also increase the Humalog to 8 units subQ t.i.d. before meals as ordered. We will obtain serial chemistries and supplement accordingly as needed. We will follow. Irene Ambrose MD cc: [id number] TT: 09/06/2016 13:27:53 Confirmation # [id number] Dictation # [id number] en
--- NOTE | 2016-09-06 14:20 | CP.PCM.PN ---
Subjective - Date & Time of Evaluation Date of Evaluation: 09/06/16 Time of Evaluation: 14:16 - Subjective Subjective: Patient is awake consciousness not in acute distress feeling much better Patient just came back From angiogram Vital sign improving blood pressure much better 14 2 x 86 with a pulse rate 108 Objective - Vital Signs/Intake and Output Vital Signs (last 24 hours): Temp Pulse Resp BP Pulse Ox 98.8 F 113 H 25 H 146/76 99 09/06/16 04:00 09/06/16 06:00 09/06/16 06:00 09/06/16 06:00 09/06/16 06:00 Intake and Output: 09/06/16 09/06/16 06:59 18:59 Intake Total 400 Output Total 0 Balance 400 - Medications Medications: Current Medications Acetaminophen (Tylenol 325mg Tab) 650 mg PO Q4 PRN PRN Reason: Fever >100.4 F Last Admin: 08/28/16 15:23 Dose: 650 mg Acetaminophen (Tylenol 325mg Tab) 650 mg PO Q4 PRN PRN Reason: Pain, moderate (4-7) Last Admin: 09/03/16 03:33 Dose: 650 mg Acetylcysteine (Mucomyst 10% 4ml) 2 ml IH RBID [facility] Last Admin: 09/06/16 08:14 Dose: 2 ml Albuterol Sulfate (Albuterol 0.083% Inhal Barbie (2.5 Mg/3 Ml) Ud) 2.5 mg INH RBID [facility] Last Admin: 09/06/16 08:13 Dose: 2.5 mg Albuterol/Ipratropium (Duoneb 3 Mg/0.5 Mg (3 Ml) Ud) 3 ml INH RQ4 PRN PRN Reason: Shortness of Breath Last Admin: 09/05/16 02:15 Dose: 3 ml Apixaban (Eliquis) 5 mg PO BID [facility] PRN Reason: Protocol Last Admin: 09/05/16 08:46 Dose: Not Given Atorvastatin Calcium (Lipitor) 40 mg PO DAILY [facility] Last Admin: 09/06/16 08:58 Dose: 40 mg Benzonatate (Tessalon Perles) 200 mg PO TID PRN PRN Reason: Cough Last Admin: 09/06/16 10:00 Dose: 200 mg Cinacalcet (Sensipar) 30 mg PO DAILY [facility] Last Admin: 09/06/16 09:02 Dose: 30 mg Collagenase (Santyl) 1 applic TOP DAILY [facility] Last Admin: 09/06/16 09:01 Dose: 1 applic Docusate Sodium (Colace) 200 mg PO BID [facility] Last Admin: 09/06/16 08:57 Dose: Not Given Epoetin Tha (Procrit) 20,000 unit IV [facility] Last Admin: 09/04/16 10:55 Dose: 20,000 unit Guaifenesin/Dextromethorphan (Mucinex-Dm 600-30 Mg) 1 tab PO BID [facility] Last Admin: 09/06/16 08:59 Dose: 1 tab Hydrocortisone (Anusol-Hc) [address] BID [facility] Last Admin: 09/06/16 08:56 Dose: Not Given Piperacillin Sod/Tazobactam (Sod 2.25 gm/ Sodium Chloride) 100 mls @ 100 mls/ hr IVPB Q12 [facility] Last Admin: 09/06/16 09:03 Dose: 100 mls/hr Linezolid (Zyvox 600mg/300ml D5w) 300 mls @ 300 mls/hr IVPB Q12 [facility] Last Admin: 09/06/16 09:03 Dose: 300 mls/hr Meropenem 500 mg/ Sodium (Chloride) 100 mls @ 100 mls/hr IVPB DAILY [facility] Last Admin: 09/06/16 08:58 Dose: 100 mls/hr Sodium Chloride (Sodium Chloride 0.9%) 250 mls @ 999 mls/hr IV .Q16M [facility] Last Admin: 08/30/16 05:36 Dose: 999 mls/hr Amikacin Sulfate 250 mg/ (Sodium Chloride) 101 mls @ 100.609 mls/hr [facility] Last Admin: 09/06/16 08:56 Dose: 100.609 mls/hr Insulin Detemir (Levemir) 24 units SC HS [facility] Insulin Human Lispro (Humalog) 8 units SC AC [facility] Lidocaine (Lidoderm) 1 ea TD DAILY [facility] Last Admin: 09/06/16 08:57 Dose: Not Given Mupirocin (Bactroban Ointment) 1 applic TOP BID [facility] Last Admin: 09/06/16 08:57 Dose: 1 applic Nystatin (Nystop Topical Powder) 1 applic TOP TID [facility] Last Admin: 09/05/16 17:12 Dose: Not Given Nystatin (Mycostatin Oint) 1 applic TOP TID [facility] Last Admin: 09/06/16 09:00 Dose: 1 applic Ondansetron HCl (Zofran Inj) 4 mg IVP Q6 PRN PRN Reason: Nausea/Vomiting Last Admin: 09/02/16 12:11 Dose: 4 mg Pantoprazole Sodium (Protonix Ec Tab) 40 mg PO DAILY [facility] Last Admin: 09/06/16 09:01 Dose: 40 mg Sevelamer HCl (Renagel) 1,600 mg PO TID [facility] Last Admin: 09/06/16 09:01 Dose: 1,600 mg Topiramate (Topamax) 50 mg PO BID [facility] Last Admin: 09/06/16 09:02 Dose: 50 mg Vitamin B Complex/Vit C/Folic Acid (Nephro-Ajay) 1 tab PO DAILY [facility] Last Admin: 09/06/16 09:00 Dose: 1 tab - Labs Labs: 09/06/16 06:00 09/06/16 06:00 PT 16.5 SECONDS (9.6-11.2) H 08/28/16 16:11 INR 1.59 (0.92-1.08) H 08/28/16 16:11 APTT 38.7 SECONDS (23.3-32.5) H 08/28/16 16:11 - Constitutional Appears: No Acute Distress - ENT Exam ENT Exam: Mucous Membranes Moist - Respiratory Exam Respiratory Exam: NORMAL BREATHING PATTERN. absent: Chest Wall Tenderness, Rales - Cardiovascular Exam Cardiovascular Exam: Tachycardia. absent: Rubs - GI/Abdominal Exam GI & Abdominal Exam: absent: Guarding - Extremities Exam Extremities Exam: absent: Calf Tenderness - Back Exam Back Exam: absent: CVA tenderness (L), CVA tenderness (R) - Neurological Exam Neurological Exam: Alert Assessment and Plan (1) ESRD (end stage renal disease) Assessment & Plan: Patient with end stage renal disease she went for angiogram because of the right foot large ulcer and discoloration which was discussion for below knee amputation as seen by the surgery as well. Patient to have hemodialysis now post angiogram with ultrafiltration up to 2 kg as tolerated vital sign is very good blood pressure going up Hemoglobin noted to go down I discussed with the resident to give 1 unit of packed cells during dialysis. Also the case has been discussed with the primary care physician Dr. Ellington almost every day Patient recovering from septic shock Status: Chronic (2) Cellulitis of leg Status: Acute
--- NOTE | 2016-09-06 14:53 | CP.PCM.PN ---
Subjective - Date & Time of Evaluation Date of Evaluation: 09/06/16 Time of Evaluation: 14:37 - Subjective Subjective: Patient is back from CT angiogram and MRI of foot/ankle. Awaiting report by radiologist. Nuclear bone scan is limited, I believe, because the poor circulation to the right lower leg may prevent isotope distribution. We should restart Eliquis and aspirin to maintain anticoagulatiobn until a decision is made regarding possible surgery. To have hemodialysis this afternoon/evening and will receive a unit of rbc's during HD. Still bleeding from menses - will give Provera starting tomorrow as this has worked in the past and Dr. Larry has said the only alternative to this menorrhagia is hysterectomy (and we are not going there at this time). Of course, we cannot give estrogens because of clotting risk. Patient was seen by Ben Nails RN, for wound care because of breast excoriations. He has started calcium alginate Silversorb dressings. Breathing much easier - s/p hypostatic pneumonia. R lower leg is still painful and warm, toes are blackened and cool. Devitalized tissue right heel is dressed. continues on 4 antibiotics for E. Coli sepsis due to E. Coli. Because of the terrible Charcot joint right ankle/foot - because the ankle offers no support to the leg - because the very brace to support the right leg has caused the heel necrosis and will continue to do so - amputation is medically indicated. The question is - at what level. Objective - Vital Signs/Intake and Output Vital Signs (last 24 hours): Temp Pulse Resp BP Pulse Ox 98.8 F 113 H 25 H 146/76 99 09/06/16 04:00 09/06/16 06:00 09/06/16 06:00 09/06/16 06:00 09/06/16 06:00 Intake and Output: 09/06/16 09/06/16 06:59 18:59 Intake Total 400 Output Total 0 Balance 400 - Medications Medications: Current Medications Acetaminophen (Tylenol 325mg Tab) 650 mg PO Q4 PRN PRN Reason: Fever >100.4 F Last Admin: 08/28/16 15:23 Dose: 650 mg Acetaminophen (Tylenol 325mg Tab) 650 mg PO Q4 PRN PRN Reason: Pain, moderate (4-7) Last Admin: 09/03/16 03:33 Dose: 650 mg Acetylcysteine (Mucomyst 10% 4ml) 2 ml IH RBID [facility] Last Admin: 09/06/16 08:14 Dose: 2 ml Albuterol Sulfate (Albuterol 0.083% Inhal Barbie (2.5 Mg/3 Ml) Ud) 2.5 mg INH RBID [facility] Last Admin: 09/06/16 08:13 Dose: 2.5 mg Albuterol/Ipratropium (Duoneb 3 Mg/0.5 Mg (3 Ml) Ud) 3 ml INH RQ4 PRN PRN Reason: Shortness of Breath Last Admin: 09/05/16 02:15 Dose: 3 ml Apixaban (Eliquis) 5 mg PO BID [facility] PRN Reason: Protocol Last Admin: 09/05/16 08:46 Dose: Not Given Atorvastatin Calcium (Lipitor) 40 mg PO DAILY [facility] Last Admin: 09/06/16 08:58 Dose: 40 mg Benzonatate (Tessalon Perles) 200 mg PO TID PRN PRN Reason: Cough Last Admin: 09/06/16 10:00 Dose: 200 mg Cinacalcet (Sensipar) 30 mg PO DAILY [facility] Last Admin: 09/06/16 09:02 Dose: 30 mg Collagenase (Santyl) 1 applic TOP DAILY [facility] Last Admin: 09/06/16 09:01 Dose: 1 applic Docusate Sodium (Colace) 200 mg PO BID [facility] Last Admin: 09/06/16 08:57 Dose: Not Given Epoetin Tha (Procrit) 20,000 unit IV MWF [facility] Last Admin: 09/04/16 10:55 Dose: 20,000 unit Guaifenesin/Dextromethorphan (Mucinex-Dm 600-30 Mg) 1 tab PO BID [facility] Last Admin: 09/06/16 08:59 Dose: 1 tab Hydrocortisone (Anusol-Hc) 1 applic [place] BID [facility] Last Admin: 09/06/16 08:56 Dose: Not Given Piperacillin Sod/Tazobactam (Sod 2.25 gm/ Sodium Chloride) 100 mls @ 100 mls/ hr IVPB Q12 [facility] Last Admin: 09/06/16 09:03 Dose: 100 mls/hr Linezolid (Zyvox 600mg/300ml D5w) 300 mls @ 300 mls/hr IVPB Q12 [facility] Last Admin: 09/06/16 09:03 Dose: 300 mls/hr Meropenem 500 mg/ Sodium (Chloride) 100 mls @ 100 mls/hr IVPB DAILY [facility] Last Admin: 09/06/16 08:58 Dose: 100 mls/hr Sodium Chloride (Sodium Chloride 0.9%) 250 mls @ 999 mls/hr IV .Q16M [facility] Last Admin: 08/30/16 05:36 Dose: 999 mls/hr Amikacin Sulfate 250 mg/ (Sodium Chloride) 101 mls @ 100.609 mls/hr IVPB MWF [facility] Last Admin: 09/06/16 08:56 Dose: 100.609 mls/hr Insulin Detemir (Levemir) 24 units SC HS [facility] Insulin Human Lispro (Humalog) 8 units SC AC [facility] Lidocaine (Lidoderm) 1 ea TD DAILY [facility] Last Admin: 09/06/16 08:57 Dose: Not Given Mupirocin (Bactroban Ointment) 1 applic TOP BID [facility] Last Admin: 09/06/16 08:57 Dose: 1 applic Nystatin (Mycostatin Oint) 1 applic TOP TID [facility] Last Admin: 09/06/16 09:00 Dose: 1 applic Ondansetron HCl (Zofran Inj) 4 mg IVP Q6 PRN PRN Reason: Nausea/Vomiting Last Admin: 09/02/16 12:11 Dose: 4 mg Pantoprazole Sodium (Protonix Ec Tab) 40 mg PO DAILY [facility] Last Admin: 09/06/16 09:01 Dose: 40 mg Sevelamer HCl (Renagel) 1,600 mg PO TID [facility] Last Admin: 09/06/16 09:01 Dose: 1,600 mg Topiramate (Topamax) 50 mg PO BID [facility] Last Admin: 09/06/16 09:02 Dose: 50 mg Vitamin B Complex/Vit C/Folic Acid (Nephro-Ajay) 1 tab PO DAILY [facility] Last Admin: 09/06/16 09:00 Dose: 1 tab - Labs Labs: 09/06/16 06:00 09/06/16 06:00 PT 16.5 SECONDS (9.6-11.2) H 08/28/16 16:11 INR 1.59 (0.92-1.08) H 08/28/16 16:11 APTT 38.7 SECONDS (23.3-32.5) H 08/28/16 16:11 - Constitutional Appears: No Acute Distress - Head Exam Head Exam: NORMAL INSPECTION - Eye Exam Eye Exam: Normal appearance - ENT Exam ENT Exam: Mucous Membranes Moist - Neck Exam Neck Exam: Normal Inspection - Respiratory Exam Respiratory Exam: NORMAL BREATHING PATTERN - Cardiovascular Exam Cardiovascular Exam: REGULAR RHYTHM - GI/Abdominal Exam GI & Abdominal Exam: Soft, Normal Bowel Sounds - Extremities Exam Additional comments: Both upper extremities show healed residual defomities post amputation. Skin is intact and dry. Pulses weak. L lower extrem residual limb is fine. R lower extremity still shows warmth and tenderness right calf and blackened toes. Heel dressing in place. No palpable pulse. RUE PICC line intact. - Back Exam Back Exam: NORMAL INSPECTION - Neurological Exam Neurological Exam: Alert, Awake, Oriented x3 - Psychiatric Exam Psychiatric exam: Normal Affect, Normal Mood - Skin Additional comments: Lesions beneath both breasts dressed with Calcium alginate pads. Assessment and Plan (1) ESRD (end stage renal disease) on dialysis Assessment & Plan: SEE SUBJECTIVE Status: Chronic (2) DM type 2 (diabetes mellitus, type 2) Assessment & Plan: DR. COE IS MANAGING THIS SUCCESSFULLY. Status: Chronic (3) Coagulopathy Assessment & Plan: RESUMING ELIQUIS AND ASPIRIN. Status: Chronic (4) Peripheral arterial occlusive disease Status: Chronic (5) Ulcer of right heel Assessment & Plan: CLINICALLY SUSPECT OSTEOMYELITIS OF THE RIGHT HEEL. Status: Resolved (6) SIRS (systemic inflammatory response syndrome) Status: Acute (7) Pneumonia Status: Acute (8) Menorrhagia Assessment & Plan: SEE SUBJECTIVE Status: Acute
--- NOTE | 2016-09-06 14:53 | CP.PCM.PN ---
Subjective - Date & Time of Evaluation Date of Evaluation: 09/06/16 Time of Evaluation: 14:50 - Subjective Subjective: CT angiogram done today thankfully includes the lung bases. There has been significant, albeit not yet complete clearing of the bibasilar lung infiltrates. Objective - Vital Signs/Intake and Output Vital Signs (last 24 hours): Temp Pulse Resp BP Pulse Ox 98.8 F 113 H 25 H 146/76 99 09/06/16 04:00 09/06/16 06:00 09/06/16 06:00 09/06/16 06:00 09/06/16 06:00 Intake and Output: 09/06/16 09/06/16 11:59 23:59 Intake Total 0 Output Total 0 Balance 0 - Medications Medications: Current Medications Acetaminophen (Tylenol 325mg Tab) 650 mg PO Q4 PRN PRN Reason: Fever >100.4 F Last Admin: 08/28/16 15:23 Dose: 650 mg Acetaminophen (Tylenol 325mg Tab) 650 mg PO Q4 PRN PRN Reason: Pain, moderate (4-7) Last Admin: 09/03/16 03:33 Dose: 650 mg Acetylcysteine (Mucomyst 10% 4ml) 2 ml IH RBID [facility] Last Admin: 09/06/16 08:14 Dose: 2 ml Albuterol Sulfate (Albuterol 0.083% Inhal Barbie (2.5 Mg/3 Ml) Ud) 2.5 mg INH RBID [facility] Last Admin: 09/06/16 08:13 Dose: 2.5 mg Albuterol/Ipratropium (Duoneb 3 Mg/0.5 Mg (3 Ml) Ud) 3 ml INH RQ4 PRN PRN Reason: Shortness of Breath Last Admin: 09/05/16 02:15 Dose: 3 ml Apixaban (Eliquis) 5 mg PO BID [facility] PRN Reason: Protocol Last Admin: 09/05/16 08:46 Dose: Not Given Atorvastatin Calcium (Lipitor) 40 mg PO DAILY [facility] Last Admin: 09/06/16 08:58 Dose: 40 mg Benzonatate (Tessalon Perles) 200 mg PO TID PRN PRN Reason: Cough Last Admin: 09/06/16 10:00 Dose: 200 mg Cinacalcet (Sensipar) 30 mg PO DAILY [facility] Last Admin: 09/06/16 09:02 Dose: 30 mg Collagenase (Santyl) 1 applic TOP DAILY [facility] Last Admin: 09/06/16 09:01 Dose: 1 applic Docusate Sodium (Colace) 200 mg PO BID [facility] Last Admin: 09/06/16 08:57 Dose: Not Given Epoetin Tha (Procrit) 20,000 unit IV [facility] Last Admin: 09/04/16 10:55 Dose: 20,000 unit Guaifenesin/Dextromethorphan (Mucinex-Dm 600-30 Mg) 1 tab PO BID [facility] Last Admin: 09/06/16 08:59 Dose: 1 tab Hydrocortisone (Anusol-Hc) [address] BID [facility] Last Admin: 09/06/16 08:56 Dose: Not Given Piperacillin Sod/Tazobactam (Sod 2.25 gm/ Sodium Chloride) 100 mls @ 100 mls/ hr IVPB Q12 [facility] Last Admin: 09/06/16 09:03 Dose: 100 mls/hr Linezolid (Zyvox 600mg/300ml D5w) 300 mls @ 300 mls/hr IVPB Q12 [facility] Last Admin: 09/06/16 09:03 Dose: 300 mls/hr Meropenem 500 mg/ Sodium (Chloride) 100 mls @ 100 mls/hr IVPB DAILY [facility] Last Admin: 09/06/16 08:58 Dose: 100 mls/hr Sodium Chloride (Sodium Chloride 0.9%) 250 mls @ 999 mls/hr IV .Q16M [facility] Last Admin: 08/30/16 05:36 Dose: 999 mls/hr Amikacin Sulfate 250 mg/ (Sodium Chloride) 101 mls @ 100.609 mls/hr IVPB [facility] Last Admin: 09/06/16 08:56 Dose: 100.609 mls/hr Insulin Detemir (Levemir) 24 units SC HS [facility] Insulin Human Lispro (Humalog) 8 units SC AC [facility] Lidocaine (Lidoderm) 1 ea TD DAILY [facility] Last Admin: 09/06/16 08:57 Dose: Not Given Mupirocin (Bactroban Ointment) 1 applic TOP BID [facility] Last Admin: 09/06/16 08:57 Dose: 1 applic Nystatin (Mycostatin Oint) 1 applic TOP TID [facility] Last Admin: 09/06/16 13:00 Dose: Not Given Ondansetron HCl (Zofran Inj) 4 mg IVP Q6 PRN PRN Reason: Nausea/Vomiting Last Admin: 09/02/16 12:11 Dose: 4 mg Pantoprazole Sodium (Protonix Ec Tab) 40 mg PO DAILY [facility] Last Admin: 09/06/16 09:01 Dose: 40 mg Sevelamer HCl (Renagel) 1,600 mg PO TID [facility] Last Admin: 09/06/16 13:00 Dose: Not Given Topiramate (Topamax) 50 mg PO BID [facility] Last Admin: 09/06/16 09:02 Dose: 50 mg Vitamin B Complex/Vit C/Folic Acid (Nephro-Ajay) 1 tab PO DAILY [facility] Last Admin: 09/06/16 09:00 Dose: 1 tab - Labs Labs: 09/06/16 06:00 09/06/16 06:00 PT 16.5 SECONDS (9.6-11.2) H 08/28/16 16:11 INR 1.59 (0.92-1.08) H 08/28/16 16:11 APTT 38.7 SECONDS (23.3-32.5) H 08/28/16 16:11
--- NOTE | 2016-09-06 16:24 | MRI ---
PROCEDURE: MRI Right Ankle HISTORY: Pain. Evaluate for osteomyelitis. COMPARISON: Comparison is made to the three-phase bone scan dated 09/04/2016.. TECHNIQUE: Multiecho multiplanar sequences were performed through the right ankle without the use of intravenous contrast. FINDINGS: ANTERIOR EXTENSOR TENDONS: Small to moderate amount of fluid seen around the anterior extensor tendons suggestive of tendinopathy.. MEDIAL FLEXOR TENDONS: There are also moderate amount of fluid around the medial flexor tendons suggestive of tendinopathy.. PERONEAL TENDONS: [id number] tendinopathy is also noted.. ANTERIOR INFERIOR TIBIOFIBULAR (SYNDESMOSIS): Cannot be evaluated due to severe deformity at the right ankle joint.. POSTERIOR INFERIOR TIBIOFIBULAR (SYNDESMOSIS): Cannot be evaluated due to severe deformity at the right ankle joint.. ANTERIOR TALOFIBULAR LIGAMENT: Cannot be fall evaluated due to severe deformity of the right ankle joint.. POSTERIOR TALOFIBULAR LIGAMENT: Also cannot be evaluated.. PLANTAR FASCIA: No evidence of significant fasciitis or fluid accumulation at the plantar aspect of the proximal foot. SINUS TARSI: Cannot be evaluated due to severe distortion at the right ankle and hindfoot. ACHILLES TENDON: No evidence of acute pathology at the visualized portion of the Achilles tendon.. DELTOID LIGAMENT COMPLEX - DEEP: Cannot be evaluated due to severe distortion.. CALCANEOFIBULAR LIGAMENT: Cannot be evaluated due to severe distortion.. SPRING (PLANTAR CALCANEO-NAVICULAR) LIGAMENT: Cannot be evaluated due to severe distortion.. BONES: Clear is severe distortion at the distal tibia and fibula and calcaneus and talar prone with heterogeneous foci of bone marrow edema seen at around the right ankle. Findings likely due to advanced Charcot arthropathy . The possibility of osteomyelitis/ septic arthritis is less likely. The posterior portion of the calcaneus bone adjacent to skin are side demonstrate no significant bone marrow edema to suggest acute osteomyelitis.. CARTILAGE: Severe distortion of the cartilage at the right ankle joint.. JOINT FLUID: Small joint effusion seen.. MUSCLES: Diffuse increased signal of the muscles around the right ankle and proximal portion of the right foot suggestive of myositis.. OTHER FINDINGS: None . IMPRESSION: Severe distortion at the right ankle and proximal portion of the right foot including the talar, calcaneus and tarsal bones. Findings likely related to advanced arthritic changes and Charcot arthropathy. The possibility of osteomyelitis is less likely. Skin ulcer seen at the right heel without evidence of adjacent osteomyelitis in the posterior aspect of the right calcaneus bone..
--- NOTE | 2016-09-06 16:29 | MRI ---
PROCEDURE: MRI Right Foot HISTORY: Pain. Evaluate for osteomyelitis COMPARISON: None available. TECHNIQUE: Multiecho multiplanar sequences were performed through the right foot without the use of intravenous contrast. FINDINGS: BONES: Severe distortion of the proximal portion of the right foot including the tarsal, calcaneus and talar bones. No evidence of significant bone marrow abnormality at the metatarsal and phalangeal bones. MUSCLES: Mild to moderate increased signal seen in the muscles particulate at the proximal right foot likely due to myositis and adjacent inflammatory changes. SOFT TISSUES: Abnormal signal in the soft tissue seen more prominent at the lateral aspect of the right foot including moderate subcutaneous edema and increased signal. LISFRANC LIGAMENT: Limited assessment of the distal krystal ligament due to severe arthritic changes at the tarsal and moderate arthritic changes at the tarsometatarsal joints. PLANTAR PLATE: No evidence of fasciitis. EXTENSOR TENDONS: Mild to moderate increase signal around the extensor tendons suggestive of tendinopathy. FLEXOR TENDONS: Moderate increased signal also noted around the flexor tendon suggestive of tendinopathy. OTHER FINDINGS: None. IMPRESSION: Severe distortion at the right ankle and proximal to midportion of the right foot likely due to advance chart right arthropathy. Soft tissue edema more prominent at the lateral aspect of the right foot without evidence of discrete fluid collection. Diffuse increased signal in the muscles suggestive for myositis. Small to moderate amount of fluid around the flexor and extensor tendons at the proximal portion of the right foot consistent with tendinopathy.
--- NOTE | 2016-09-06 17:44 | CP.PCM.PN ---
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 from BKA No change in antibiotic therapy Objective - Vital Signs/Intake and Output Vital Signs (last 24 hours): Temp Pulse Resp BP Pulse Ox 99.5 F 77 27 H 148/89 100 09/06/16 08:00 09/06/16 08:00 09/06/16 08:00 09/06/16 08:00 09/06/16 08:00 Intake and Output: 09/06/16 09/06/16 06:59 18:59 Intake Total 400 Output Total 0 Balance 400 - Medications Medications: Current Medications Acetaminophen (Tylenol 325mg Tab) 650 mg PO Q4 PRN PRN Reason: Fever >100.4 F Last Admin: 08/28/16 15:23 Dose: 650 mg Acetaminophen (Tylenol 325mg Tab) 650 mg PO Q4 PRN PRN Reason: Pain, moderate (4-7) Last Admin: 09/03/16 03:33 Dose: 650 mg Acetylcysteine (Mucomyst 10% 4ml) 2 ml IH RBID [facility] Last Admin: 09/06/16 08:14 Dose: 2 ml Albuterol Sulfate (Albuterol 0.083% Inhal Barbie (2.5 Mg/3 Ml) Ud) 2.5 mg INH RBID [facility] Last Admin: 09/06/16 08:13 Dose: 2.5 mg Albuterol/Ipratropium (Duoneb 3 Mg/0.5 Mg (3 Ml) Ud) 3 ml INH RQ4 PRN PRN Reason: Shortness of Breath Last Admin: 09/05/16 02:15 Dose: 3 ml Apixaban (Eliquis) 5 mg PO BID [facility] PRN Reason: Protocol Last Admin: 09/05/16 08:46 Dose: Not Given Aspirin (Ecotrin) 81 mg PO DAILY [facility] Atorvastatin Calcium (Lipitor) 40 mg PO DAILY [facility] Last Admin: 09/06/16 08:58 Dose: 40 mg Benzonatate (Tessalon Perles) 200 mg PO TID PRN PRN Reason: Cough Last Admin: 09/06/16 10:00 Dose: 200 mg Cinacalcet (Sensipar) 30 mg PO DAILY [facility] Last Admin: 09/06/16 09:02 Dose: 30 mg Collagenase (Santyl) 1 applic TOP DAILY [facility] Last Admin: 09/06/16 09:01 Dose: 1 applic Docusate Sodium (Colace) 200 mg PO BID [facility] Last Admin: 09/06/16 17:09 Dose: Not Given Epoetin Tha (Procrit) 20,000 unit IV [facility] Last Admin: 09/04/16 10:55 Dose: 20,000 unit Guaifenesin/Dextromethorphan (Mucinex-Dm 600-30 Mg) 1 tab PO BID [facility] Last Admin: 09/06/16 17:10 Dose: Not Given Hydrocortisone (Anusol-Hc) 1 applic [place] BID [facility] Last Admin: 09/06/16 17:09 Dose: Not Given Piperacillin Sod/Tazobactam (Sod 2.25 gm/ Sodium Chloride) 100 mls @ 100 mls/ hr IVPB Q12 [facility] Last Admin: 09/06/16 09:03 Dose: 100 mls/hr Linezolid (Zyvox 600mg/300ml D5w) 300 mls @ 300 mls/hr IVPB Q12 [facility] Last Admin: 09/06/16 09:03 Dose: 300 mls/hr Meropenem 500 mg/ Sodium (Chloride) 100 mls @ 100 mls/hr IVPB DAILY [facility] Last Admin: 09/06/16 08:58 Dose: 100 mls/hr Sodium Chloride (Sodium Chloride 0.9%) 250 mls @ 999 mls/hr IV .Q16M [facility] Last Admin: 08/30/16 05:36 Dose: 999 mls/hr Amikacin Sulfate 250 mg/ (Sodium Chloride) 101 mls @ 100.609 mls/hr IVPB [facility] Last Admin: 09/06/16 08:56 Dose: 100.609 mls/hr Insulin Detemir (Levemir) 24 units SC HS [facility] Insulin Human Lispro (Humalog) 8 units SC AC [facility] Last Admin: 09/06/16 17:10 Dose: Not Given Lidocaine (Lidoderm) 1 ea TD DAILY [facility] Last Admin: 09/06/16 08:57 Dose: Not Given Mupirocin (Bactroban Ointment) 1 applic TOP BID [facility] Last Admin: 09/06/16 17:09 Dose: Not Given Nystatin (Mycostatin Oint) 1 applic TOP TID [facility] Last Admin: 09/06/16 17:10 Dose: Not Given Ondansetron HCl (Zofran Inj) 4 mg IVP Q6 PRN PRN Reason: Nausea/Vomiting Last Admin: 09/02/16 12:11 Dose: 4 mg Pantoprazole Sodium (Protonix Ec Tab) 40 mg PO DAILY [facility] Last Admin: 09/06/16 09:01 Dose: 40 mg Sevelamer HCl (Renagel) 1,600 mg PO TID [facility] Last Admin: 09/06/16 17:10 Dose: Not Given Topiramate (Topamax) 50 mg PO BID [facility] Last Admin: 09/06/16 17:11 Dose: Not Given Vitamin B Complex/Vit C/Folic Acid (Nephro-Ajay) 1 tab PO DAILY [facility] Last Admin: 09/06/16 09:00 Dose: 1 tab - Labs Labs: 09/06/16 06:00 09/06/16 06:00 PT 16.5 SECONDS (9.6-11.2) H 08/28/16 16:11 INR 1.59 (0.92-1.08) H 08/28/16 16:11 APTT 38.7 SECONDS (23.3-32.5) H 08/28/16 16:11
[2016-09-06] MEDS: Epoetin Alfa 20000 UNIT/ML Inj IV SCH (21:15)
[2016-09-06] MEDS: Insulin Detemir 100 Units/ml Inj SC SCH (21:51)
--- NOTE | 2016-09-07 00:02 | CP.PCM.PN ---
Subjective - Date & Time of Evaluation Date of Evaluation: 09/06/16 Time of Evaluation: 20:25 - Subjective Subjective: No syncopal spells, no seizures, Dr Cordon of [place] is considering BKA. Patient is clinically stable. Today she had an EEG and other tests. She has a poor appetite. Objective - Vital Signs/Intake and Output Vital Signs (last 24 hours): Temp Pulse Resp BP Pulse Ox 97.5 F L 115 H 21 133/69 100 09/06/16 20:00 09/06/16 22:00 09/06/16 22:00 09/06/16 22:00 09/06/16 22:00 Intake and Output: 09/06/16 09/07/16 18:59 06:59 Intake Total 520 Output Total 3000 Balance -2480 - Medications Medications: Current Medications Acetaminophen (Tylenol 325mg Tab) 650 mg PO Q4 PRN PRN Reason: Fever >100.4 F Last Admin: 08/28/16 15:23 Dose: 650 mg Acetaminophen (Tylenol 325mg Tab) 650 mg PO Q4 PRN PRN Reason: Pain, moderate (4-7) Last Admin: 09/03/16 03:33 Dose: 650 mg Acetylcysteine (Mucomyst 10% 4ml) 2 ml IH RBID [facility] Last Admin: 09/06/16 20:16 Dose: 2 ml Albuterol Sulfate (Albuterol 0.083% Inhal Barbie (2.5 Mg/3 Ml) Ud) 2.5 mg INH RBID [facility] Last Admin: 09/06/16 20:16 Dose: 2.5 mg Albuterol/Ipratropium (Duoneb 3 Mg/0.5 Mg (3 Ml) Ud) 3 ml INH RQ4 PRN PRN Reason: Shortness of Breath Last Admin: 09/05/16 02:15 Dose: 3 ml Apixaban (Eliquis) 5 mg PO BID [facility] PRN Reason: Protocol Last Admin: 09/06/16 17:00 Dose: Not Given Aspirin (Ecotrin) 81 mg PO DAILY [facility] Atorvastatin Calcium (Lipitor) 40 mg PO DAILY [facility] Last Admin: 09/06/16 08:58 Dose: 40 mg Benzonatate (Tessalon Perles) 200 mg PO TID PRN PRN Reason: Cough Last Admin: 09/06/16 10:00 Dose: 200 mg Cinacalcet (Sensipar) 30 mg PO DAILY [facility] Last Admin: 09/06/16 09:02 Dose: 30 mg Collagenase (Santyl) 1 applic TOP DAILY [facility] Last Admin: 09/06/16 09:01 Dose: 1 applic Docusate Sodium (Colace) 200 mg PO BID [facility] Last Admin: 09/06/16 17:09 Dose: Not Given Epoetin Tha (Procrit) 20,000 unit IV [facility] Last Admin: 09/06/16 21:15 Dose: 20,000 unit Guaifenesin/Dextromethorphan (Mucinex-Dm 600-30 Mg) 1 tab PO BID [facility] Last Admin: 09/06/16 17:10 Dose: Not Given Hydrocortisone (Anusol-Hc) 1 applic [place] BID [facility] Last Admin: 09/06/16 17:09 Dose: Not Given Piperacillin Sod/Tazobactam (Sod 2.25 gm/ Sodium Chloride) 100 mls @ 100 mls/ hr IVPB Q12 [facility] Last Admin: 09/06/16 21:27 Dose: 100 mls/hr Linezolid (Zyvox 600mg/300ml D5w) 300 mls @ 300 mls/hr IVPB Q12 [facility] Last Admin: 09/06/16 21:44 Dose: 300 mls/hr Meropenem 500 mg/ Sodium (Chloride) 100 mls @ 100 mls/hr IVPB DAILY [facility] Last Admin: 09/06/16 08:58 Dose: 100 mls/hr Sodium Chloride (Sodium Chloride 0.9%) 250 mls @ 999 mls/hr IV .Q16M [facility] Last Admin: 08/30/16 05:36 Dose: 999 mls/hr Amikacin Sulfate 250 mg/ (Sodium Chloride) 101 mls @ 100.609 mls/hr IVPB MWF [facility] Last Admin: 09/06/16 08:56 Dose: 100.609 mls/hr Insulin Detemir (Levemir) 24 units SC HS [facility] Last Admin: 09/06/16 21:51 Dose: 24 units Insulin Human Lispro (Humalog) 8 units SC AC [facility] Last Admin: 09/06/16 17:10 Dose: Not Given Lidocaine (Lidoderm) 1 ea TD DAILY [facility] Last Admin: 09/06/16 08:57 Dose: Not Given Mupirocin (Bactroban Ointment) 1 applic TOP BID [facility] Last Admin: 09/06/16 17:09 Dose: Not Given Nystatin (Mycostatin Oint) 1 applic TOP TID [facility] Last Admin: 09/06/16 17:10 Dose: Not Given Ondansetron HCl (Zofran Inj) 4 mg IVP Q6 PRN PRN Reason: Nausea/Vomiting Last Admin: 09/02/16 12:11 Dose: 4 mg Pantoprazole Sodium (Protonix Ec Tab) 40 mg PO DAILY [facility] Last Admin: 09/06/16 09:01 Dose: 40 mg Sevelamer HCl (Renagel) 1,600 mg PO TID [facility] Last Admin: 09/06/16 17:10 Dose: Not Given Topiramate (Topamax) 50 mg PO BID [facility] Last Admin: 09/06/16 17:11 Dose: Not Given Vitamin B Complex/Vit C/Folic Acid (Nephro-Ajay) 1 tab PO DAILY [facility] Last Admin: 09/06/16 09:00 Dose: 1 tab - Labs Labs: 09/06/16 06:00 09/06/16 06:00 PT 16.5 SECONDS (9.6-11.2) H 08/28/16 16:11 INR 1.59 (0.92-1.08) H 08/28/16 16:11 APTT 38.7 SECONDS (23.3-32.5) H 08/28/16 16:11 Assessment and Plan (1) Diabetes Status: Chronic (2) ESRD (end stage renal disease) Status: Chronic (3) Cellulitis of leg Status: Acute (4) Hyperlipidemia Status: Acute (5) Back pain Status: Acute (6) Bacteremia due to Gram-negative bacteria Status: Acute (7) Diabetes mellitus type 2 with peripheral artery disease Status: Acute (8) PVD (peripheral vascular disease) Status: Acute
[2016-09-07 07:04] LABS: MEAN CELL VOLUME 92.1 fl (81.0-99.0); MEAN CORPUSCULAR HEMOGLOBIN 29.8 pg (27.0-31.0); MEAN CORPUSCULAR HGB CONC 32.3 g/dL (33.0-37.0); RED CELL DISTRIBUTION WIDTH 20.4 % (11.5-14.5); WHITE BLOOD COUNT 13.9 K/uL (4.8-10.8)
--- NOTE | 2016-09-07 07:05 | CP.PCM.PN ---
Subjective - Date & Time of Evaluation Date of Evaluation: 09/07/16 Time of Evaluation: 07:01 - Subjective Subjective: 46 yo female patient seen at bedside in ICU regarding ulceration of right heel. Pt seen resting comfortably in bed at time of visit. Pt appears less lethargic today, states that she does feel a little better. Denies f/n/v/c/sob/cp at this time. Denies any pain or discomfort to the right foot today, says the leg pain is much more comfortable. Sleeping and appetite have improved. Still reports cough. Objective - Vital Signs/Intake and Output Vital Signs (last 24 hours): Temp Pulse Resp BP Pulse Ox 98.4 F 114 H 27 H 118/43 L 100 09/07/16 04:00 09/07/16 06:00 09/07/16 06:00 09/07/16 06:00 09/07/16 06:00 Intake and Output: 09/07/16 09/07/16 06:59 18:59 Intake Total 845 Output Total 3000 Balance -2155 - Medications Medications: Current Medications Acetaminophen (Tylenol 325mg Tab) 650 mg PO Q4 PRN PRN Reason: Fever >100.4 F Last Admin: 08/28/16 15:23 Dose: 650 mg Acetaminophen (Tylenol 325mg Tab) 650 mg PO Q4 PRN PRN Reason: Pain, moderate (4-7) Last Admin: 09/03/16 03:33 Dose: 650 mg Acetylcysteine (Mucomyst 10% 4ml) 2 ml IH RBID [facility] Last Admin: 09/06/16 20:16 Dose: 2 ml Albuterol Sulfate (Albuterol 0.083% Inhal Barbie (2.5 Mg/3 Ml) Ud) 2.5 mg INH RBID [facility] Last Admin: 09/06/16 20:16 Dose: 2.5 mg Albuterol/Ipratropium (Duoneb 3 Mg/0.5 Mg (3 Ml) Ud) 3 ml INH RQ4 PRN PRN Reason: Shortness of Breath Last Admin: 09/05/16 02:15 Dose: 3 ml Apixaban (Eliquis) 5 mg PO BID [facility] PRN Reason: Protocol Last Admin: 09/06/16 17:00 Dose: Not Given Aspirin (Ecotrin) 81 mg PO DAILY [facility] Atorvastatin Calcium (Lipitor) 40 mg PO DAILY [facility] Last Admin: 09/06/16 08:58 Dose: 40 mg Benzonatate (Tessalon Perles) 200 mg PO TID PRN PRN Reason: Cough Last Admin: 09/06/16 10:00 Dose: 200 mg Cinacalcet (Sensipar) 30 mg PO DAILY [facility] Last Admin: 09/06/16 09:02 Dose: 30 mg Collagenase (Santyl) 1 applic TOP DAILY [facility] Last Admin: 09/06/16 09:01 Dose: 1 applic Docusate Sodium (Colace) 200 mg PO BID [facility] Last Admin: 09/06/16 17:09 Dose: Not Given Epoetin Tha (Procrit) 20,000 unit IV [facility] Last Admin: 09/06/16 21:15 Dose: 20,000 unit Guaifenesin/Dextromethorphan (Mucinex-Dm 600-30 Mg) 1 tab PO BID [facility] Last Admin: 09/06/16 17:10 Dose: Not Given Hydrocortisone (Anusol-Hc) 1 applic [place] BID [facility] Last Admin: 09/06/16 17:09 Dose: Not Given Piperacillin Sod/Tazobactam (Sod 2.25 gm/ Sodium Chloride) 100 mls @ 100 mls/ hr IVPB Q12 [facility] Last Admin: 09/06/16 21:27 Dose: 100 mls/hr Linezolid (Zyvox 600mg/300ml D5w) 300 mls @ 300 mls/hr IVPB Q12 [facility] Last Admin: 09/06/16 21:44 Dose: 300 mls/hr Meropenem 500 mg/ Sodium (Chloride) 100 mls @ 100 mls/hr IVPB DAILY [facility] Last Admin: 09/06/16 08:58 Dose: 100 mls/hr Sodium Chloride (Sodium Chloride 0.9%) 250 mls @ 999 mls/hr IV .Q16M [facility] Last Admin: 08/30/16 05:36 Dose: 999 mls/hr Amikacin Sulfate 250 mg/ (Sodium Chloride) 101 mls @ 100.609 mls/hr IVPB MWF [facility] Last Admin: 09/06/16 08:56 Dose: 100.609 mls/hr Insulin Detemir (Levemir) 24 units SC [facility] Last Admin: 09/06/16 21:51 Dose: 24 units Insulin Human Lispro (Humalog) 8 units SC AC [facility] Last Admin: 09/06/16 17:10 Dose: Not Given Lidocaine (Lidoderm) 1 ea TD DAILY [facility] Last Admin: 09/06/16 08:57 Dose: Not Given Mupirocin (Bactroban Ointment) 1 applic TOP BID [facility] Last Admin: 09/06/16 17:09 Dose: Not Given Nystatin (Mycostatin Oint) 1 applic TOP TID [facility] Last Admin: 09/06/16 17:10 Dose: Not Given Ondansetron HCl (Zofran Inj) 4 mg IVP Q6 PRN PRN Reason: Nausea/Vomiting Last Admin: 09/02/16 12:11 Dose: 4 mg Pantoprazole Sodium (Protonix Ec Tab) 40 mg PO DAILY [facility] Last Admin: 09/06/16 09:01 Dose: 40 mg Sevelamer HCl (Renagel) 1,600 mg PO TID [facility] Last Admin: 09/06/16 17:10 Dose: Not Given Topiramate (Topamax) 50 mg PO BID [facility] Last Admin: 09/06/16 17:11 Dose: Not Given Vitamin B Complex/Vit C/Folic Acid (Nephro-Ajay) 1 tab PO DAILY [facility] Last Admin: 09/06/16 09:00 Dose: 1 tab - Labs Labs: 09/06/16 06:00 09/06/16 06:00 PT 16.5 SECONDS (9.6-11.2) H 08/28/16 16:11 INR 1.59 (0.92-1.08) H 08/28/16 16:11 APTT 38.7 SECONDS (23.3-32.5) H 08/28/16 16:11 - Constitutional Appears: Well, Non-toxic, No Acute Distress - Extremities Exam Additional comments: Right lower extremity exam: VASC- DP/PT pulses non-palpable, capillary refill < 5 sec to digits x 5, moderate 2+ pitting edema noted to anterior aspect of leg and dorsum of foot NEURO-gross pedal sensation is diminished DERM- superficial dry eschar noted to plantar aspect of heel, appears dry w/ no drainage on compression, no purulence, no increased warmth, no local or ascending erythema, no acute signs infection ORTHO- slight tenderness noted to distal posterior leg today, severe varus deformity of ankle noted - Neurological Exam Neurological Exam: Alert, Awake, Oriented x3 - Psychiatric Exam Psychiatric exam: Normal Affect, Normal Mood Assessment and Plan - Assessment and Plan (Free Text) Assessment: 46 yo female patient w/ pmhx of HTN, ESRD (on dialysis), coagulopathy, DM, charcot right foot PVD w/ stable dry eschar of right heel. Plan: -Pt S&E at bedside -Discussed plan w/ Dr. Pruett -Chart, labs, vitals reviewed: afebrile, WBC improving (13.2 yesterday) -Dressing changed with DSD, multipodus boot reapplied -c/w IV abx per ID -patient unable to tolerate MRI -bone scan- findings consistent with cellulitis, no evidence of acute OM -MRI- no evidence of acute OM -Will follow
[2016-09-07 07:24] LABS: CALCIUM 8.6 mg/dL (8.4-10.2); POTASSIUM 3.8 MMOL/L (3.6-5.0)
[2016-09-07] MEDS: Insulin Lispro (humaLOG) 100 Units/ml Inj SC SCH ×3 (07:51→17:23)
[2016-09-07] MEDS: Albuterol 0.083% Inhal Sol (2.5 mg/3 mL) UD INH SCH ×2 (08:30→19:44)
[2016-09-07] MEDS: Acetylcysteine 10% 4 ML IH SCH ×2 (08:30→19:44)
[2016-09-07] MEDS ORDERED: medroxyPROGESTERone 5 MG TAB PO SCH (09:00)
[2016-09-07] MEDS: Nystatin Ointment TOP SCH ×3 (09:08→17:03)
[2016-09-07] MEDS: Multivitamin Vitamin B Complex (Nephro-Vite) Tab PO SCH (09:09)
[2016-09-07] MEDS: Pantoprazole 40 mg EC Tab PO SCH (09:10)
[2016-09-07] MEDS: Meropenem 500 MG in Sodium Chloride 0.9% 100 ML IVPB SCH (09:12)
[2016-09-07] MEDS: Lidocaine 5% Patch TD SCH (09:12)
[2016-09-07] MEDS: guaiFENesin-DM 600-30 mg ER Tab PO SCH ×2 (09:13→17:21)
--- NOTE | 2016-09-07 10:28 | PN ---
DATE: 09/07/2016 LOCATION: The patient in ICU, bed 421. TIME SPENT: 35 minutes. The patient is seen and evaluated at the bedside. Events since admission reviewed. PAST MEDICAL, SURGICAL AND SOCIAL HISTORY: Noted and unchanged. HISTORY OF PRESENT ILLNESS: A 46-year-old morbidly obese female, patient of Dr. Rakel Thomas w ith a history of hypertension; diabetes mellitus type 2; protein C and protein S deficiency; severe p eripheral vascular disease; anemia of chronic disease; end-stage renal disease, on hemodialysis; note d to have right lower extremity cellulitis. Admitted to ICU for sepsis, septic shock. Seen by YOHANNES cornelius. Receiving amikacin, meropenem, Zosyn and Zyvox. Bone scan and MRI of right foot showed no ev idence of acute osteomyelitis. Being followed by podiatry consult. Overnight remained afebrile. No rmotensive. No respiratory distress. This morning, alert, awake. Follows commands appropriate. De nies headache. Complaining of nonproductive cough. No chest pain, palpitation. No abdominal discom fort or diarrhea. Pain of right lower extremity improved and appears more comfortable now. PHYSICAL EXAMINATION: VITAL SIGNS: Temperature 99.4, heart rate 119 regular, blood pressure 117/85, pulse oximetry 98% on oxygen 2 L nasal cannula. Intake 845, output 3000, negative balance of 2155. Had a bowel movement w ithout any blood in the stool. HEAD, EYES, EARS, NOSE AND THROAT: Pupils are reactive. Conjunctivae pale, sclerae. Pharynx positi ve for erythema. NECK: Supple, short neck, reduced oropharyngeal air space. CHEST: Bilateral breath sounds diminished in intensity. HEART: Rhythm regular. S1, S2 normal intensity. No audible murmur. ABDOMEN: Bowel sounds. Soft, nondistended. EXTREMITIES: Upper extremity: Positive for status post amputation third finger on the right hand. Status post amputated second, third and fourth digits on the left hand. Weak radial pulses. Lower e xtremity: Left below-knee amputation. Right foot in a soft cast since this morning by podiatry cons ult. SKIN: Warm, normal in color. NEUROLOGIC: Unremarkable. PSYCHIATRIC: Alert and oriented x 3. CURRENT MEDICATIONS: Include Tylenol 650 q. 4 p.r.n. for temp more than 100.4; albuterol solution 2. 5 mg twice daily; Mucomyst 10%/2 mL twice daily; Atrovent 3 mL q. 4 p.r.n.; amikacin 250 mg Friday, W and Friday; Eliquis 5 mg twice daily, on hold; aspirin 81 mg daily; Lipitor 40 mg daily; Deneen salon Perles 200 mg 3 times daily; Sensipar 30 mg p.o. daily; Santyl 1 application topically daily; C olace 200 mg twice daily; Procrit 20,000 units 3 times a week with dialysis; Mucinex DM 600/30 mg twi ce daily; hydrocortisone Anusol-HC 1 application per rectum twice daily as scheduled; Levemir 24 uni ts subQ at bedtime; vitamin B complex daily; Topamax 50 mg b.i.d.; Zosyn 225 mg IV q. 12. ASSESSMENT: Sepsis associated with hypotension. Improved blood pressure. Remains afebrile. Cellulitis of right lower extremity. Blood culture and Perm-A-Cath positive for E. coli. Continue w ith Zosyn, Zyvox, meropenem. Appreciate ID input. Ulcer of right foot. Being followed by podiatry consult. Continue current antibiotics and local wou nd care. Pneumonia. Chest x-ray shows stable infiltrate right lower lobe. No new acute findings. Continue D uoNeb q. 6, pulmonary toilet. End-stage renal disease. On hemodialysis Friday, Friday and Friday. Monitor BMP. Continue renal diet. Hyperlipidemia, peripheral vascular disease, diabetes mellitus type 2 with peripheral arterial diseas e. Hemoglobin A1c level. Appreciate Endocrine input. Currently on Levemir 22 units subQ. Coagulopathy, history of protein C and S deficiency and heparin antibodies. On aspirin. We will dis cuss with surgery regarding resuming Altace. Refugio Jarrell MD cc: [id number] TT: 09/07/2016 10:27:43 Confirmation # [id number] Dictation # [id number] amalia
[2016-09-07] MEDS: Santyl Collagenase OINTMENT TOP SCH (11:50)
[2016-09-07] MEDS: Hydrocortisone 2.5% (Rectal) CREAM PR SCH ×2 (11:52→17:03)
--- NOTE | 2016-09-07 12:36 | PN ---
DATE: 09/07/2016 ROOM: 421 ICU. SUBJECTIVE: This is a 46-year-old female with recent uncontrolled type 2 insulin-requiring diabetes now being followed closely for metabolic management. Her glycemic levels are much improved at this t jesus with improvement also of her oral meal intake. Her glucose values have ranged from 149-153 mg/dL . Her latest chemistries include a BUN of 14, sodium 139, potassium 3.8, chloride 103, CO2 24, gluco se 145 and creatinine 4.2. So, at this time, we will continue the modified basal and bolus insulin r egimen to allow for dose equilibration and keep her on the Levemir given as 24 units subQ at bedtime daily as ordered. We will continue also the Humalog given as 8 units subQ t.i.d. before meals as giv en. We will obtain serial chemistries and supplement accordingly as needed. We will follow. Irene Ambrose MD cc: [id number] TT: 09/07/2016 12:35:24 Confirmation # [id number] Dictation # [id number] tn
--- NOTE | 2016-09-07 13:16 | CP.PCM.PN ---
Subjective - Date & Time of Evaluation Date of Evaluation: 09/07/16 Time of Evaluation: 12:20 - Subjective Subjective: Resting comfortably, denies any dyspnoea or chills Has remained afebrile Tachycardic (110 BPM) BP 160/70 mm Hg No rale or gallop Labs noted On IV ABx Scheduled to have Sx ( Stable from cardiac point of view) Objective - Vital Signs/Intake and Output Vital Signs (last 24 hours): Temp Pulse Resp BP Pulse Ox 98.5 F 119 H 28 H 131/72 100 09/07/16 11:44 09/07/16 11:44 09/07/16 11:44 09/07/16 11:44 09/07/16 11:44 Intake and Output: 09/07/16 09/07/16 06:59 18:59 Intake Total 845 530 Output Total 3000 Balance -2155 530 - Medications Medications: Current Medications Acetaminophen (Tylenol 325mg Tab) 650 mg PO Q4 PRN PRN Reason: Fever >100.4 F Last Admin: 08/28/16 15:23 Dose: 650 mg Acetaminophen (Tylenol 325mg Tab) 650 mg PO Q4 PRN PRN Reason: Pain, moderate (4-7) Last Admin: 09/03/16 03:33 Dose: 650 mg Acetylcysteine (Mucomyst 10% 4ml) 2 ml IH RBID [facility] Last Admin: 09/07/16 08:30 Dose: 2 ml Albuterol Sulfate (Albuterol 0.083% Inhal Barbie (2.5 Mg/3 Ml) Ud) 2.5 mg INH RBID [facility] Last Admin: 09/07/16 08:30 Dose: 2.5 mg Albuterol/Ipratropium (Duoneb 3 Mg/0.5 Mg (3 Ml) Ud) 3 ml INH RQ4 PRN PRN Reason: Shortness of Breath Last Admin: 09/05/16 02:15 Dose: 3 ml Apixaban (Eliquis) 5 mg PO BID [facility] PRN Reason: Protocol Last Admin: 09/07/16 09:11 Dose: 5 mg Aspirin (Ecotrin) 81 mg PO DAILY [facility] Last Admin: 09/07/16 09:11 Dose: 81 mg Atorvastatin Calcium (Lipitor) 40 mg PO DAILY [facility] Last Admin: 09/07/16 09:12 Dose: 40 mg Benzonatate (Tessalon Perles) 200 mg PO TID PRN PRN Reason: Cough Last Admin: 09/06/16 10:00 Dose: 200 mg Cinacalcet (Sensipar) 30 mg PO DAILY [facility] Last Admin: 09/07/16 11:51 Dose: 30 mg Collagenase (Santyl) 1 applic TOP DAILY [facility] Last Admin: 09/07/16 11:50 Dose: Not Given Docusate Sodium (Colace) 200 mg PO BID [facility] Last Admin: 09/07/16 09:08 Dose: Not Given Epoetin Tha (Procrit) 20,000 unit IV [facility] [place] Last Admin: 09/06/16 21:15 Dose: 20,000 unit Guaifenesin/Dextromethorphan (Mucinex-Dm 600-30 Mg) 1 tab PO BID [facility] Last Admin: 09/07/16 09:13 Dose: 1 tab Hydrocortisone (Anusol-Hc) 1 applic [place] BID [facility] Last Admin: 09/07/16 11:52 Dose: 1 applic Piperacillin Sod/Tazobactam (Sod 2.25 gm/ Sodium Chloride) 100 mls @ 100 mls/ hr IVPB Q12 [facility] Last Admin: 09/06/16 21:27 Dose: 100 mls/hr Linezolid (Zyvox 600mg/300ml D5w) 300 mls @ 300 mls/hr IVPB Q12 [facility] Last Admin: 09/06/16 21:44 Dose: 300 mls/hr Meropenem 500 mg/ Sodium (Chloride) 100 mls @ 100 mls/hr IVPB DAILY [facility] Last Admin: 09/07/16 09:12 Dose: 100 mls/hr Sodium Chloride (Sodium Chloride 0.9%) 250 mls @ 999 mls/hr IV .Q16M [facility] Last Admin: 08/30/16 05:36 Dose: 999 mls/hr Amikacin Sulfate 250 mg/ (Sodium Chloride) 101 mls @ 100.609 mls/hr IVPB MWF [facility] Last Admin: 09/06/16 08:56 Dose: 100.609 mls/hr Insulin Detemir (Levemir) 24 units SC HS [facility] Last Admin: 09/06/16 21:51 Dose: 24 units Insulin Human Lispro (Humalog) 8 units SC AC [facility] Last Admin: 09/07/16 11:48 Dose: 8 units Lidocaine (Lidoderm) 1 ea TD DAILY [facility] Last Admin: 09/07/16 09:12 Dose: 1 ea Mupirocin (Bactroban Ointment) 1 applic TOP BID [facility] Last Admin: 09/07/16 09:11 Dose: 1 applic Nystatin (Mycostatin Oint) 1 applic TOP TID [facility] Last Admin: 09/07/16 12:00 Dose: 1 applic Ondansetron HCl (Zofran Inj) 4 mg IVP Q6 PRN PRN Reason: Nausea/Vomiting Last Admin: 09/02/16 12:11 Dose: 4 mg Pantoprazole Sodium (Protonix Ec Tab) 40 mg PO DAILY [facility] Last Admin: 09/07/16 09:10 Dose: 40 mg Sevelamer HCl (Renagel) 1,600 mg PO TID [facility] Last Admin: 09/07/16 12:00 Dose: 1,600 mg Topiramate (Topamax) 50 mg PO BID [facility] Last Admin: 09/06/16 17:11 Dose: Not Given Vitamin B Complex/Vit C/Folic Acid (Nephro-Ajay) 1 tab PO DAILY [facility] Last Admin: 09/07/16 09:09 Dose: 1 tab - Labs Labs: 09/07/16 05:00 09/07/16 05:00 PT 16.5 SECONDS (9.6-11.2) H 08/28/16 16:11 INR 1.59 (0.92-1.08) H 08/28/16 16:11 APTT 38.7 SECONDS (23.3-32.5) H 08/28/16 16:11
--- NOTE | 2016-09-07 15:13 | CP.PCM.PN ---
Subjective - Date & Time of Evaluation Date of Evaluation: 09/07/16 Time of Evaluation: 15:13 - Subjective Subjective: no events overnight Objective - Vital Signs/Intake and Output Vital Signs (last 24 hours): Temp Pulse Resp BP Pulse Ox 98.5 F 123 H 18 100/58 L 100 09/07/16 11:44 09/07/16 14:00 09/07/16 14:00 09/07/16 14:00 09/07/16 14:00 Intake and Output: 09/07/16 09/07/16 06:59 18:59 Intake Total 845 630 Output Total 3000 Balance -2158 630 - Medications Medications: Current Medications Acetaminophen (Tylenol 325mg Tab) 650 mg PO Q4 PRN PRN Reason: Fever >100.4 F Last Admin: 08/28/16 15:23 Dose: 650 mg Acetaminophen (Tylenol 325mg Tab) 650 mg PO Q4 PRN PRN Reason: Pain, moderate (4-7) Last Admin: 09/03/16 03:33 Dose: 650 mg Acetylcysteine (Mucomyst 10% 4ml) 2 ml IH RBID [facility] Last Admin: 09/07/16 08:30 Dose: 2 ml Albuterol Sulfate (Albuterol 0.083% Inhal Barbie (2.5 Mg/3 Ml) Ud) 2.5 mg INH RBID [facility] Last Admin: 09/07/16 08:30 Dose: 2.5 mg Albuterol/Ipratropium (Duoneb 3 Mg/0.5 Mg (3 Ml) Ud) 3 ml INH RQ4 PRN PRN Reason: Shortness of Breath Last Admin: 09/05/16 02:15 Dose: 3 ml Apixaban (Eliquis) 5 mg PO BID [facility] PRN Reason: Protocol Last Admin: 09/07/16 09:11 Dose: 5 mg Aspirin (Ecotrin) 81 mg PO DAILY [facility] Last Admin: 09/07/16 09:11 Dose: 81 mg Atorvastatin Calcium (Lipitor) 40 mg PO DAILY [facility] Last Admin: 09/07/16 09:12 Dose: 40 mg Benzonatate (Tessalon Perles) 200 mg PO TID PRN PRN Reason: Cough Last Admin: 09/06/16 10:00 Dose: 200 mg Cinacalcet (Sensipar) 30 mg PO DAILY [facility] Last Admin: 09/07/16 11:51 Dose: 30 mg Collagenase (Santyl) 1 applic TOP DAILY [facility] Last Admin: 09/07/16 11:50 Dose: Not Given Docusate Sodium (Colace) 200 mg PO BID [facility] Last Admin: 09/07/16 09:08 Dose: Not Given Epoetin Tha (Procrit) 20,000 unit IV [facility] Last Admin: 09/06/16 21:15 Dose: 20,000 unit Guaifenesin/Dextromethorphan (Mucinex-Dm 600-30 Mg) 1 tab PO BID [facility] Last Admin: 09/07/16 09:13 Dose: 1 tab Hydrocortisone (Anusol-Hc) 1 applic [place] BID [facility] Last Admin: 09/07/16 11:52 Dose: 1 applic Piperacillin Sod/Tazobactam (Sod 2.25 gm/ Sodium Chloride) 100 mls @ 100 mls/ hr IVPB Q12 [facility] Last Admin: 09/06/16 21:27 Dose: 100 mls/hr Linezolid (Zyvox 600mg/300ml D5w) 300 mls @ 300 mls/hr IVPB Q12 [facility] Last Admin: 09/06/16 21:44 Dose: 300 mls/hr Meropenem 500 mg/ Sodium (Chloride) 100 mls @ 100 mls/hr IVPB DAILY [facility] Last Admin: 09/07/16 09:12 Dose: 100 mls/hr Sodium Chloride (Sodium Chloride 0.9%) 250 mls @ 999 mls/hr IV .Q16M [facility] Last Admin: 08/30/16 05:36 Dose: 999 mls/hr Amikacin Sulfate 250 mg/ (Sodium Chloride) 101 mls @ 100.609 mls/hr IVPB MWF [facility] Last Admin: 09/06/16 08:56 Dose: 100.609 mls/hr Insulin Detemir (Levemir) 24 units SC HS [facility] Last Admin: 09/06/16 21:51 Dose: 24 units Insulin Human Lispro (Humalog) 8 units SC AC [facility] Last Admin: 09/07/16 11:48 Dose: 8 units Lidocaine (Lidoderm) 1 ea TD DAILY [facility] Last Admin: 09/07/16 09:12 Dose: 1 ea Mupirocin (Bactroban Ointment) 1 applic TOP BID [facility] Last Admin: 09/07/16 09:11 Dose: 1 applic Nystatin (Mycostatin Oint) 1 applic TOP TID [facility] Last Admin: 09/07/16 12:00 Dose: 1 applic Ondansetron HCl (Zofran Inj) 4 mg IVP Q6 PRN PRN Reason: Nausea/Vomiting Last Admin: 09/02/16 12:11 Dose: 4 mg Pantoprazole Sodium (Protonix Ec Tab) 40 mg PO DAILY [facility] Last Admin: 09/07/16 09:10 Dose: 40 mg Sevelamer HCl (Renagel) 1,600 mg PO TID [facility] Last Admin: 09/07/16 12:00 Dose: 1,600 mg Topiramate (Topamax) 50 mg PO BID [facility] Last Admin: 09/06/16 17:11 Dose: Not Given Vitamin B Complex/Vit C/Folic Acid (Nephro-Ajay) 1 tab PO DAILY [facility] Last Admin: 09/07/16 09:09 Dose: 1 tab - Labs Labs: 09/07/16 05:00 09/07/16 05:00 PT 16.5 SECONDS (9.6-11.2) H 08/28/16 16:11 INR 1.59 (0.92-1.08) H 08/28/16 16:11 APTT 38.7 SECONDS (23.3-32.5) H 08/28/16 16:11 - Constitutional Appears: Non-toxic, No Acute Distress - Head Exam Head Exam: NORMAL INSPECTION - Eye Exam Eye Exam: Normal appearance - ENT Exam ENT Exam: Mucous Membranes Moist - Respiratory Exam Respiratory Exam: NORMAL BREATHING PATTERN - Cardiovascular Exam Cardiovascular Exam: +S1, +S2 - GI/Abdominal Exam GI & Abdominal Exam: Soft - Neurological Exam Neurological Exam: Alert, Oriented x3 Assessment and Plan - Assessment and Plan (Free Text) Plan: ESRD/anemia/htn/ulcer of foot/sepsis syndrome hd mwf, done yesterday lyetienne reviewed anemia stable bp ok abx per ICU team volume status is stable next hd on friday
--- NOTE | 2016-09-07 18:28 | CP.PCM.PN ---
Subjective - Date & Time of Evaluation Date of Evaluation: 09/07/16 Time of Evaluation: 18:25 - Subjective Subjective: Patient is having pain in the right foot, which is actually perpendicular to the tibia/fibula. Repositioned in bed with some relief. She is having frequent dry cough, and passes some loose stool each time. She is afraid to eat because it causes cough and then defecation. Will order Robitussin with codeine. Still with menstrual flow, well over 10 days. In the past Provera helped this, so I have ordered Provera 10m daily x 10 days. We cannot put her on oral contraceptives to control menorrhagia because of coagulopathy. Various studies reviewed - bone scan and MRI of foot/ankle. I am awaiting angiography report. Whether there is osteomyelitis or not, the presence of an infected ucler in a foot that is so deformed as to defy othotics - that is reason enough for amputation. Diabetes is being managed by Dr. Ambrose, infection by Dr. Lemon, pneujmonia by Dr. Flores, cardology issues by Dr. Gallito Shepard, hematology advice by Dr. Evita Shepard , and management of ESRD by Dr. Melania Guadarrama and colleagues. Podiatry has been providing wound care. Objective - Vital Signs/Intake and Output Vital Signs (last 24 hours): Temp Pulse Resp BP Pulse Ox 99.0 F 117 H 21 90/50 L 100 09/07/16 16:00 09/07/16 17:53 09/07/16 16:00 09/07/16 17:53 09/07/16 16:00 Intake and Output: 09/07/16 09/07/16 06:59 18:59 Intake Total 845 960 Output Total 3000 Balance -2155 960 - Medications Medications: Current Medications Acetaminophen (Tylenol 325mg Tab) 650 mg PO Q4 PRN PRN Reason: Fever >100.4 F Last Admin: 08/28/16 15:23 Dose: 650 mg Acetaminophen (Tylenol 325mg Tab) 650 mg PO Q4 PRN PRN Reason: Pain, moderate (4-7) Last Admin: 09/03/16 03:33 Dose: 650 mg Acetylcysteine (Mucomyst 10% 4ml) 2 ml IH RBID [facility] Last Admin: 09/07/16 08:30 Dose: 2 ml Albuterol Sulfate (Albuterol 0.083% Inhal Barbie (2.5 Mg/3 Ml) Ud) 2.5 mg INH RBID [facility] Last Admin: 09/07/16 08:30 Dose: 2.5 mg Albuterol/Ipratropium (Duoneb 3 Mg/0.5 Mg (3 Ml) Ud) 3 ml INH RQ4 PRN PRN Reason: Shortness of Breath Last Admin: 09/05/16 02:15 Dose: 3 ml Apixaban (Eliquis) 5 mg PO BID [facility] PRN Reason: Protocol Last Admin: 09/07/16 17:21 Dose: 5 mg Aspirin (Ecotrin) 81 mg PO DAILY [facility] Last Admin: 09/07/16 09:11 Dose: 81 mg Atorvastatin Calcium (Lipitor) 40 mg PO DAILY [facility] Last Admin: 09/07/16 09:12 Dose: 40 mg Benzonatate (Tessalon Perles) 200 mg PO TID PRN PRN Reason: Cough Last Admin: 09/06/16 10:00 Dose: 200 mg Cinacalcet (Sensipar) 30 mg PO DAILY [facility] Last Admin: 09/07/16 11:51 Dose: 30 mg Collagenase (Santyl) 1 applic TOP DAILY [facility] Last Admin: 09/07/16 11:50 Dose: Not Given Docusate Sodium (Colace) 200 mg PO BID [facility] Last Admin: 09/07/16 17:21 Dose: Not Given Epoetin Tha (Procrit) 20,000 unit IV MWF [facility] Last Admin: 09/06/16 21:15 Dose: 20,000 unit Guaifenesin/Codeine Phosphate (Robitussin W/Codeine) 10 ml PO Q4 PRN PRN Reason: Cough Hydrocortisone (Anusol-Hc) 1 applic HI BID [facility] Last Admin: 09/07/16 17:03 Dose: 1 applic Piperacillin Sod/Tazobactam (Sod 2.25 gm/ Sodium Chloride) 100 mls @ 100 mls/ hr IVPB Q12 [facility] Last Admin: 09/06/16 21:27 Dose: 100 mls/hr Linezolid (Zyvox 600mg/300ml D5w) 300 mls @ 300 mls/hr IVPB Q12 [facility] Last Admin: 09/06/16 21:44 Dose: 300 mls/hr Meropenem 500 mg/ Sodium (Chloride) 100 mls @ 100 mls/hr IVPB DAILY [facility] Last Admin: 09/07/16 09:12 Dose: 100 mls/hr Sodium Chloride (Sodium Chloride 0.9%) 250 mls @ 999 mls/hr IV .Q16M [facility] Last Admin: 08/30/16 05:36 Dose: 999 mls/hr Amikacin Sulfate 250 mg/ (Sodium Chloride) 101 mls @ 100.609 mls/hr IVPB MWF [facility] Last Admin: 09/06/16 08:56 Dose: 100.609 mls/hr Insulin Detemir (Levemir) 24 units SC HS [facility] Last Admin: 09/06/16 21:51 Dose: 24 units Insulin Human Lispro (Humalog) 8 units SC AC [facility] Last Admin: 09/07/16 17:23 Dose: 8 units Lidocaine (Lidoderm) 1 ea TD DAILY [facility] Last Admin: 09/07/16 09:12 Dose: 1 ea Medroxyprogesterone Acetate (Provera) 10 mg PO DAILY [facility] Stop: 09/17/16 09:01 Mupirocin (Bactroban Ointment) 1 applic TOP BID [facility] Last Admin: 09/07/16 17:22 Dose: 1 applic Nystatin (Mycostatin Oint) 1 applic TOP TID [facility] Last Admin: 09/07/16 17:03 Dose: 1 applic Ondansetron HCl (Zofran Inj) 4 mg IVP Q6 PRN PRN Reason: Nausea/Vomiting Last Admin: 09/02/16 12:11 Dose: 4 mg Pantoprazole Sodium (Protonix Ec Tab) 40 mg PO DAILY [facility] Last Admin: 09/07/16 09:10 Dose: 40 mg Sevelamer HCl (Renagel) 1,600 mg PO TID [facility] Last Admin: 09/07/16 17:03 Dose: 1,600 mg Topiramate (Topamax) 50 mg PO BID [facility] Last Admin: 09/06/16 17:11 Dose: Not Given Vitamin B Complex/Vit C/Folic Acid (Nephro-Ajay) 1 tab PO DAILY [facility] Last Admin: 09/07/16 09:09 Dose: 1 tab - Labs Labs: 09/07/16 05:00 09/07/16 05:00 PT 16.5 SECONDS (9.6-11.2) H 08/28/16 16:11 INR 1.59 (0.92-1.08) H 08/28/16 16:11 APTT 38.7 SECONDS (23.3-32.5) H 08/28/16 16:11 - Constitutional Appears: No Acute Distress - Head Exam Head Exam: NORMAL INSPECTION - Eye Exam Eye Exam: Normal appearance - ENT Exam ENT Exam: Mucous Membranes Moist - Respiratory Exam Respiratory Exam: Clear to Ausculation Bilateral - Cardiovascular Exam Cardiovascular Exam: REGULAR RHYTHM - Extremities Exam Additional comments: As previously described. - Skin Skin Exam: Warm Additional comments: Dressings beneath breasts intact. Dressing R foot intact. Assessment and Plan (1) ESRD (end stage renal disease) on dialysis Assessment & Plan: SEE SUBJECTIVE Status: Chronic (2) DM type 2 (diabetes mellitus, type 2) Assessment & Plan: SEE SUBJECTIVE Status: Chronic (3) Coagulopathy Assessment & Plan: CONTINUE ELIQUIS AND ASPIRIN Status: Chronic (4) Peripheral arterial occlusive disease Assessment & Plan: SEE SUBJECTIVE Status: Chronic (5) Ulcer of right heel Assessment & Plan: SEE SUBJECTIVE Status: Resolved (6) SIRS (systemic inflammatory response syndrome) Status: Acute (7) Pneumonia Assessment & Plan: STILL COUGHING, SEE SUBJECTIVE Status: Acute (8) Menorrhagia Assessment & Plan: START PROVERA - SEE SUBJECTIVE Status: Acute
[2016-09-07] MEDS: guaiFENesin-Codeine 100-10mg/5ml Syrup (5 ml) UD PO PRN (18:32)
[2016-09-07] MEDS: Linezolid 600 mg in D5W 300 ml 300 ML IVPB SCH (21:53)
[2016-09-07] MEDS: Insulin Detemir 100 Units/ml Inj SC SCH (21:54)
[2016-09-08] MEDS: guaiFENesin-Codeine 100-10mg/5ml Syrup (5 ml) UD PO PRN ×4 (02:26→23:30)
[2016-09-08] MEDS: Insulin Lispro (humaLOG) 100 Units/ml Inj SC SCH ×2 (07:30→11:30)
[2016-09-08 07:47] LABS: BASO # 0.1 K/uL (0.0-0.2); BASO % 0.7 % (0.0-2.0); EOS # 0.2 K/uL (0.0-0.7); EOS % 1.2 % (0.0-4.0); HEMATOCRIT 27.8 % (34.0-47.0); LYMPH # 1.4 K/uL (1.0-4.3); LYMPH % 9.9 % (20.0-40.0); MEAN CELL VOLUME 91.9 fl (81.0-99.0); MEAN CORPUSCULAR HEMOGLOBIN 29.2 pg (27.0-31.0); MEAN CORPUSCULAR HGB CONC 31.8 g/dL (33.0-37.0); MEAN PLATELET VOLUME 9.1 fl (7.2-11.7); MONO # 1.3 K/uL (0.0-0.8); MONO % 9.2 % (0.0-10.0); NEUT # 11.4 K/uL (1.8-7.0); WHITE BLOOD COUNT 14.5 K/uL (4.8-10.8)
[2016-09-08] MEDS: Albuterol 0.083% Inhal Sol (2.5 mg/3 mL) UD INH SCH ×2 (07:47→19:19)
[2016-09-08] MEDS: Acetylcysteine 10% 4 ML IH SCH ×2 (07:47→19:19)
[2016-09-08 08:05] LABS: BILIRUBIN,TOTAL 0.5 mg/dl (0.2-1.3); CALCIUM 8.4 mg/dL (8.4-10.2); POTASSIUM 3.7 MMOL/L (3.6-5.0)
[2016-09-08 08:09] LABS: ALB/GLOB RATIO 0.7 (1.0-2.1)
[2016-09-08] MEDS: Nystatin Ointment TOP SCH ×3 (09:00→17:52)
[2016-09-08] MEDS: Hydrocortisone 2.5% (Rectal) CREAM PR SCH ×2 (09:07→17:26)
[2016-09-08] MEDS: Lidocaine 5% Patch TD SCH (09:14)
[2016-09-08] MEDS: Multivitamin Vitamin B Complex (Nephro-Vite) Tab PO SCH (09:16)
[2016-09-08] MEDS: Pantoprazole 40 mg EC Tab PO SCH (09:17)
[2016-09-08] MEDS: Santyl Collagenase OINTMENT TOP SCH (09:18)
[2016-09-08] MEDS: Linezolid 600 mg in D5W 300 ml 300 ML IVPB SCH ×3 (09:20→20:06)
[2016-09-08] MEDS: Meropenem 500 MG in Sodium Chloride 0.9% 100 ML IVPB SCH (09:28)
--- NOTE | 2016-09-08 10:46 | CP.PCM.PN ---
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 A right lateral malleolar ulcer was treated and resolved at that time. A new brace for the right leg was made to prevent future ulcerations. Instead, she developed a blister on the right heel which the wound care center has been treating since 2016. Clearly, this was not successful. MY OVERALL IMPRESSIONS: Current indicators which support the diagnosis of osteomyelitis of the right heel are: Persistent elevated wbc with left shift despite 4 antibiotics and now negative blood cultures. MRI and Bone scan which shows myositis and possibly tib/fib tiffanie inflammatiion. Tenderness along the lower tibia/fibula. Elevated alkaline phosphatase. Poor circulation to the right foot as evidenced by cool and blackened shriveled toes (CT angiogram report is still pending). My examination which revealed devitalized tissue covering the right heel which when pressed reveals boggy tissue below and no firm bone. The initial culture of the heel that was positive for E. Coli, the same organism found in the blood. Even if the indicators do not confirm osteomyelitis, the fact is that the patient's right foot/ankle with the impaired circulation and markedly diminished sensation and repeated ulcerations - that part of her anatomy is quite useless, and the very brace (however well intentioned) has caused an ulceration that almost took her life from septic shock. I am convinced that amputation is in her best interest and that ultimately with a right LE prosthesis (probably BK) she will have a much better quality of life and a lower risk of life-threatening infection. The patient understands this and is agreeable to such surgery. OTHER ISSUES FOR THIS PATIENT: New onset of cough after good treatment of pneumonia - may indicate fluid overload because she has not been dialyzed for 2 days now and she did have blood transfusion as will as IV fluids related to antibiotic therapy. DM - better blood glucose results. Protracted menses - started on Provera last night. WOUND CARE: Lesions beneath breasts are being cleansed well with soap & water, then calcium alginate dressing applied (per Richard Nails RN). I discontinued Mupiricin oint and Nystatin powder. According to last podiatry note: R heel is getting dry sterile dressing. There is still an order for Santyl ? This needs clarification. Objective - Vital Signs/Intake and Output Vital Signs (last 24 hours): Temp Pulse Resp BP Pulse Ox 98.3 F 104 H 22 130/69 98 09/08/16 07:49 09/08/16 07:49 09/08/16 07:49 09/08/16 07:49 09/08/16 02:00 Intake and Output: 09/08/16 09/08/16 06:59 18:59 Intake Total 634 Balance 634 - Medications Medications: Current Medications Acetaminophen (Tylenol 325mg Tab) 650 mg PO Q4 PRN PRN Reason: Fever >100.4 F Last Admin: 08/28/16 15:23 Dose: 650 mg Acetaminophen (Tylenol 325mg Tab) 650 mg PO Q4 PRN PRN Reason: Pain, moderate (4-7) Last Admin: 09/03/16 03:33 Dose: 650 mg Acetylcysteine (Mucomyst 10% 4ml) 2 ml IH RBID [facility] Last Admin: 09/08/16 07:47 Dose: 2 ml Albuterol Sulfate (Albuterol 0.083% Inhal Barbie (2.5 Mg/3 Ml) Ud) 2.5 mg INH RBID [facility] Last Admin: 09/08/16 07:47 Dose: 2.5 mg Albuterol/Ipratropium (Duoneb 3 Mg/0.5 Mg (3 Ml) Ud) 3 ml INH RQ4 PRN PRN Reason: Shortness of Breath Last Admin: 09/05/16 02:15 Dose: 3 ml Apixaban (Eliquis) 5 mg PO BID [facility] PRN Reason: Protocol Last Admin: 09/08/16 09:14 Dose: 5 mg Aspirin (Ecotrin) 81 mg PO DAILY [facility] Last Admin: 09/08/16 09:13 Dose: 81 mg Atorvastatin Calcium (Lipitor) 40 mg PO DAILY [facility] Last Admin: 09/08/16 09:15 Dose: 40 mg Benzonatate (Tessalon Perles) 200 mg PO TID PRN PRN Reason: Cough Last Admin: 09/07/16 22:00 Dose: 200 mg Cinacalcet (Sensipar) 30 mg PO DAILY [facility] Last Admin: 09/08/16 09:19 Dose: 30 mg Collagenase (Santyl) 1 applic TOP DAILY [facility] Last Admin: 09/08/16 09:18 Dose: 1 applic Docusate Sodium (Colace) 200 mg PO BID [facility] Last Admin: 09/08/16 09:11 Dose: Not Given [facility]poetin [facility]a ([facility]) [facility] Last Admin: 09/06/16 21:15 Dose: 20,000 unit Guaifenesin/Codeine Phosphate (Robitussin W/Codeine) 10 ml PO Q4 PRN PRN Reason: Cough Last Admin: 09/08/16 02:26 Dose: 10 ml Hydrocortisone (Anusol-Hc) 1 applic RI BID [facility] Last Admin: 09/08/16 09:07 Dose: Not Given Piperacillin Sod/Tazobactam (Sod 2.25 gm/ Sodium Chloride) 100 mls @ 100 mls/ hr IVPB Q12 [facility] Last Admin: 09/08/16 09:29 Dose: 100 mls/hr Linezolid (Zyvox 600mg/300ml D5w) 300 mls @ 300 mls/hr IVPB Q12 [facility] Last Admin: 09/08/16 09:29 Dose: 300 mls/hr Meropenem 500 mg/ Sodium (Chloride) 100 mls @ 100 mls/hr IVPB DAILY [facility] Last Admin: 09/08/16 09:28 Dose: 100 mls/hr Sodium Chloride (Sodium Chloride 0.9%) 250 mls @ 999 mls/hr IV .Q16M [facility] Last Admin: 08/30/16 05:36 Dose: 999 mls/hr Amikacin Sulfate 250 mg/ (Sodium Chloride) 101 mls @ 100.609 mls/hr IVPB MWF [facility] Last Admin: 09/06/16 08:56 Dose: 100.609 mls/hr Insulin Detemir (Levemir) 24 units SC HS [facility] Last Admin: 09/07/16 21:54 Dose: 24 units Insulin Human Lispro (Humalog) 8 units SC AC [facility] Last Admin: 09/07/16 17:23 Dose: 8 units Lidocaine (Lidoderm) 1 ea TD DAILY [facility] Last Admin: 09/08/16 09:14 Dose: 1 ea Medroxyprogesterone Acetate (Provera) 10 mg PO DAILY [facility] Stop: 09/17/16 09:01 Mupirocin (Bactroban Ointment) 1 applic TOP BID [facility] Last Admin: 09/08/16 09:11 Dose: 1 applic Nystatin (Mycostatin Oint) 1 applic TOP TID [facility] Last Admin: 09/07/16 17:03 Dose: 1 applic Ondansetron HCl (Zofran Inj) 4 mg IVP Q6 PRN PRN Reason: Nausea/Vomiting Last Admin: 09/02/16 12:11 Dose: 4 mg Pantoprazole Sodium (Protonix Ec Tab) 40 mg PO DAILY [facility] Last Admin: 09/08/16 09:17 Dose: 40 mg Sevelamer HCl (Renagel) 1,600 mg PO TID [facility] Last Admin: 09/08/16 09:17 Dose: 1,600 mg Topiramate (Topamax) 50 mg PO BID [facility] Last Admin: 09/08/16 09:20 Dose: 50 mg Vitamin B Complex/Vit C/Folic Acid (Nephro-Ajay) 1 tab PO DAILY [facility] Last Admin: 09/08/16 09:16 Dose: 1 tab - Labs Labs: 09/08/16 06:00 09/08/16 06:00 PT 16.5 SECONDS (9.6-11.2) H 08/28/16 16:11 INR 1.59 (0.92-1.08) H 08/28/16 16:11 APTT 38.7 SECONDS (23.3-32.5) H 08/28/16 16:11 Laboratory Results - last 72 hr 09/05/16 09/05/16 09/06/16 17:04 21:38 04:58 WBC RBC Hgb Hct MCV MCH MCHC RDW Plt Count MPV Neut % (Auto) Lymph % (Auto) Stearns % (Auto) Eos % (Auto) Baso % (Auto) Neut # Lymph # Stearns # Eos # Baso # Neutrophils % (Manual) Band Neutrophils % Lymphocytes % (Manual) Monocytes % (Manual) Eosinophils % (Manual) Nucleated RBC % Platelet Estimate Large Platelets Giant Platelets Anisocytosis (manual) Sodium Potassium Chloride Carbon Dioxide Anion Gap BUN Creatinine Est GFR ( Amer) Est GFR (Non-Af Amer) POC Glucose (mg/dL) 381 H 335 H 238 H Random Glucose Calcium Total Bilirubin AST ALT Alkaline Phosphatase Total Protein Albumin Globulin Albumin/Globulin Ratio Blood Type Antibody Screen Crossmatch BBK History Checked 09/06/16 09/06/16 09/06/16 06:00 06:00 13:28 WBC 13.2 H RBC 2.85 L Hgb 8.3 L Hct 26.7 L MCV 93.7 MCH 29.3 MCHC 31.2 L RDW 20.8 H Plt Count 291 MPV 9.9 Neut % (Auto) 71.8 Lymph % (Auto) 9.6 L Stearns % (Auto) 16.0 H Eos % (Auto) 1.5 Baso % (Auto) 1.1 Neut # 9.5 H Lymph # 1.3 Stearns # 2.1 H Eos # 0.2 Baso # 0.1 Neutrophils % (Manual) 78 H Band Neutrophils % 2 Lymphocytes % (Manual) 7 L Monocytes % (Manual) 11 H Eosinophils % (Manual) 2 Nucleated RBC % 1 H Platelet Estimate Normal Large Platelets Present Giant Platelets Present Anisocytosis (manual) Slight Sodium 137 Potassium 3.8 Chloride 99 Carbon Dioxide 24 Anion Gap 18 BUN 26 H Creatinine 6.3 H Est GFR ( Amer) 9 Est GFR (Non-Af Amer) 7 POC Glucose (mg/dL) 149 H Random Glucose 214 H Calcium 8.5 Total Bilirubin 0.6 AST 31 ALT 30 Alkaline Phosphatase 184 H Total Protein 7.0 Albumin 2.8 L Globulin 4.2 H Albumin/Globulin Ratio 0.7 L Blood Type Antibody Screen Crossmatch BBK History Checked 09/06/16 09/07/16 09/07/16 19:45 05:00 05:00 WBC 13.9 H RBC 3.14 L Hgb 9.4 L Hct 29.0 L MCV 92.1 MCH 29.8 MCHC 32.3 L RDW 20.4 H Plt Count 286 MPV Neut % (Auto) Lymph % (Auto) Stearns % (Auto) Eos % (Auto) Baso % (Auto) Neut # Lymph # Stearns # Eos # Baso # Neutrophils % (Manual) Band Neutrophils % Lymphocytes % (Manual) Monocytes % (Manual) Eosinophils % (Manual) Nucleated RBC % Platelet Estimate Large Platelets Giant Platelets Anisocytosis (manual) Sodium 139 Potassium 3.8 Chloride 103 Carbon Dioxide 24 Anion Gap 16 BUN 14 Creatinine 4.2 H Est GFR ( Amer) 14 Est GFR (Non-Af Amer) 11 POC Glucose (mg/dL) Random Glucose 145 H Calcium 8.6 Total Bilirubin AST ALT Alkaline Phosphatase Total Protein Albumin Globulin Albumin/Globulin Ratio Blood Type AB POSITIVE Antibody Screen Negative Crossmatch See Detail BBK History Checked Patient has bt 09/07/16 09/08/16 09/08/16 11:25 06:00 06:00 WBC 14.5 H RBC 3.02 L Hgb 8.8 L Hct 27.8 L MCV 91.9 MCH 29.2 MCHC 31.8 L RDW 21.0 H Plt Count 270 MPV 9.1 Neut % (Auto) 79.0 H Lymph % (Auto) 9.9 L Stearns % (Auto) 9.2 Eos % (Auto) 1.2 Baso % (Auto) 0.7 Neut # 11.4 H Lymph # 1.4 Stearns # 1.3 H Eos # 0.2 Baso # 0.1 Neutrophils % (Manual) Band Neutrophils % Lymphocytes % (Manual) Monocytes % (Manual) Eosinophils % (Manual) Nucleated RBC % Platelet Estimate Large Platelets Giant Platelets Anisocytosis (manual) Sodium 137 Potassium 3.7 Chloride 101 Carbon Dioxide 25 Anion Gap 15 BUN 23 H Creatinine 6.1 H Est GFR ( Amer) 9 Est GFR (Non-Af Amer) 7 POC Glucose (mg/dL) 153 H Random Glucose 224 H Calcium 8.4 Total Bilirubin 0.5 AST 31 ALT 16 Alkaline Phosphatase 168 H Total Protein 7.0 Albumin 2.8 L Globulin 4.3 H Albumin/Globulin Ratio 0.7 L Blood Type Antibody Screen Crossmatch BBK History Checked 09/08/16 06:12 WBC RBC Hgb Hct MCV MCH MCHC RDW Plt Count MPV Neut % (Auto) Lymph % (Auto) Stearns % (Auto) Eos % (Auto) Baso % (Auto) Neut # Lymph # Stearns # Eos # Baso # Neutrophils % (Manual) Band Neutrophils % Lymphocytes % (Manual) Monocytes % (Manual) Eosinophils % (Manual) Nucleated RBC % Platelet Estimate Large Platelets Giant Platelets Anisocytosis (manual) Sodium Potassium Chloride Carbon Dioxide Anion Gap BUN Creatinine Est GFR ( Amer) Est GFR (Non-Af Amer) POC Glucose (mg/dL) 155 H Random Glucose Calcium Total Bilirubin AST ALT Alkaline Phosphatase Total Protein Albumin Globulin Albumin/Globulin Ratio Blood Type Antibody Screen Crossmatch BBK History Checked - Constitutional Appears: Other (Some distress from cough, right leg pain) - Head Exam Head Exam: NORMAL INSPECTION - Eye Exam Eye Exam: Normal appearance - ENT Exam ENT Exam: Mucous Membranes Moist - Neck Exam Neck Exam: Normal Inspection (Coarse breath sounds and inspiratory crackles) - Respiratory Exam Additional comments: Coarse breath sounds throughout and inspiratory crackles at bases. - Cardiovascular Exam Cardiovascular Exam: REGULAR RHYTHM, +S1, +S2 - GI/Abdominal Exam GI & Abdominal Exam: Soft, Normal Bowel Sounds - Extremities Exam Additional comments: Puffy left hand but warm and with no open lesions. R hand warm and without lesions. Dressing intact right foot/heel/ R upper arm PICC line intact. L residual limb clear, warm. R toes blackened and slightly shriveled. Poor capillary fill on great toe. - Back Exam Back Exam: NORMAL INSPECTION - Neurological Exam Neurological Exam: Alert, Awake, CN II-XII Intact, Oriented x3 Additional comments: Gait not tested. - Skin Additional comments: Dressings in place beneath breasts. See above for extremities. Assessment and Plan (1) ESRD (end stage renal disease) on dialysis Assessment & Plan: Possible fluid overload - for hemodialysis tomorrow. Status: Chronic (2) DM type 2 (diabetes mellitus, type 2) Assessment & Plan: Improved results - managed by Dr. Ambrose Status: Chronic (3) Coagulopathy Assessment & Plan: Needs to continue Eliquis and aspirin until 48 hours before any surgery. Status: Chronic (4) Peripheral arterial occlusive disease Assessment & Plan: Awaiting report of right leg CT angiogram. Status: Chronic (5) Ulcer of right heel Assessment & Plan: Whether this is osteomyelitis or not, my recommendation is for amputation of the right foot/lower leg - at a level to be determined by the general surgeon, Dr. Brian Pastrana, in consultation with the radiologist who performed the angiogram. SEE SUBJECTIVE ABOVE. Status: Resolved (6) SIRS (systemic inflammatory response syndrome) Assessment & Plan: This has resolved, but so long as the right foot infection remains, there is danger of recurrence. Status: Acute (7) Pneumonia Assessment & Plan: This appears to have resolved and pulmonary problems are being addressed by Dr. Flores, but fluid overload may be complicating this. Status: Acute (8) Menorrhagia Assessment & Plan: To continue Provera for a 10 day course. Status: Acute
--- NOTE | 2016-09-08 11:03 | PN ---
DATE: 09/08/2016 ENDO FOLLOWUP NOTE In ICU, room 421. SUBJECTIVE: This is a 46-year-old female with recent uncontrolled type 2 insulin-requiring diabetes, now being followed closely for metabolic management. Her oral intake has improved remarkably as noted. Her latest glucose values are also been fluctuatin g, but improved with glucose levels today ranging from 155-224 mg/dL. LABORATORY DATA: Her latest chemistries showed a BUN of 23, sodium 137, potassium 3.7, chloride 101, CO2 of 25, glucose 224, and creatinine 6.1. So, at this time, we will actually increase the basal insulin with Levemir to be given as 28 units horan bQ at bedtime daily to start tonight. We will continue the prandial insulin to cover her mealtime in sulin requirements as ordered. We will continue the Humalog ordered as 8 units subQ t.i.d. before me als as given. We will titrate incrementally as indicated to optimize metabolic control. We will fol low and advise accordingly. Irene Ambrose MD cc: [phone] TT: 09/08/2016 11:02:36 Confirmation # [id number] Dictation # [id number]
--- NOTE | 2016-09-08 11:06 | CP.PCM.PN ---
Subjective - Date & Time of Evaluation Date of Evaluation: 09/08/16 Time of Evaluation: 11:04 - Subjective Subjective: 46 yo female patient seen at bedside in ICU regarding ulceration of right heel. Pt seen resting comfortably in bed at time of visit. Patient states that she does feel a little better today. Denies f/n/v/c/sob/cp at this time. Denies any pain or discomfort to the right foot today, says the leg pain is much more comfortable. Sleeping and appetite have improved. Still reports cough. Patient' s multipodus boot is intact to right heel at time of visit. Objective - Vital Signs/Intake and Output Vital Signs (last 24 hours): Temp Pulse Resp BP Pulse Ox 98.3 F 104 H 22 130/69 98 09/08/16 07:49 09/08/16 07:49 09/08/16 07:49 09/08/16 07:49 09/08/16 02:00 Intake and Output: 09/08/16 09/08/16 06:59 18:59 Intake Total 634 Balance 634 - Medications Medications: Current Medications Acetaminophen (Tylenol 325mg Tab) 650 mg PO Q4 PRN PRN Reason: Fever >100.4 F Last Admin: 08/28/16 15:23 Dose: 650 mg Acetaminophen (Tylenol 325mg Tab) 650 mg PO Q4 PRN PRN Reason: Pain, moderate (4-7) Last Admin: 09/03/16 03:33 Dose: 650 mg Acetylcysteine (Mucomyst 10% 4ml) 2 ml IH RBID [facility] Last Admin: 09/08/16 07:47 Dose: 2 ml Albuterol Sulfate (Albuterol 0.083% Inhal Barbie (2.5 Mg/3 Ml) Ud) 2.5 mg INH RBID [facility] Last Admin: 09/08/16 07:47 Dose: 2.5 mg Albuterol/Ipratropium (Duoneb 3 Mg/0.5 Mg (3 Ml) Ud) 3 ml INH RQ4 PRN PRN Reason: Shortness of Breath Last Admin: 09/05/16 02:15 Dose: 3 ml Apixaban (Eliquis) 5 mg PO BID [facility] PRN Reason: Protocol Last Admin: 09/08/16 09:14 Dose: 5 mg Aspirin (Ecotrin) 81 mg PO DAILY [facility] Last Admin: 09/08/16 09:13 Dose: 81 mg Atorvastatin Calcium (Lipitor) 40 mg PO DAILY [facility] Last Admin: 09/08/16 09:15 Dose: 40 mg Benzonatate (Tessalon Perles) 200 mg PO TID PRN PRN Reason: Cough Last Admin: 09/07/16 22:00 Dose: 200 mg Cinacalcet (Sensipar) 30 mg PO DAILY [facility] Last Admin: 09/08/16 09:19 Dose: 30 mg Collagenase (Santyl) 1 applic TOP DAILY [facility] Last Admin: 09/08/16 09:18 Dose: 1 applic Docusate Sodium (Colace) 200 mg PO BID [facility] Last Admin: 09/08/16 09:11 Dose: Not Given Epoetin Tha (Procrit) 20,000 unit IV MWF [facility] Last Admin: 09/06/16 21:15 Dose: 20,000 unit Guaifenesin/Codeine Phosphate (Robitussin W/Codeine) 10 ml PO Q4 PRN PRN Reason: Cough Last Admin: 09/08/16 10:29 Dose: 10 ml Hydrocortisone (Anusol-Hc) 1 applic MD BID [facility] Last Admin: 09/08/16 09:07 Dose: Not Given Piperacillin Sod/Tazobactam (Sod 2.25 gm/ Sodium Chloride) 100 mls @ 100 mls/ hr IVPB Q12 [facility] Last Admin: 09/08/16 09:29 Dose: 100 mls/hr Linezolid (Zyvox 600mg/300ml D5w) 300 mls @ 300 mls/hr IVPB Q12 [facility] Last Admin: 09/08/16 09:29 Dose: 300 mls/hr Meropenem 500 mg/ Sodium (Chloride) 100 mls @ 100 mls/hr IVPB DAILY [facility] Last Admin: 09/08/16 09:28 Dose: 100 mls/hr Amikacin Sulfate 250 mg/ (Sodium Chloride) 101 mls @ 100.609 mls/hr IVPB MWF [facility] Last Admin: 09/06/16 08:56 Dose: 100.609 mls/hr Insulin Detemir (Levemir) 28 units SC HS [facility] Insulin Human Lispro (Humalog) 8 units SC AC [facility] Last Admin: 09/07/16 17:23 Dose: 8 units Lidocaine (Lidoderm) 1 ea TD DAILY [facility] Last Admin: 09/08/16 09:14 Dose: 1 ea Medroxyprogesterone Acetate (Provera) 10 mg PO DAILY [facility] Stop: 09/17/16 09:01 Last Admin: 09/08/16 10:36 Dose: 10 mg Nystatin (Mycostatin Oint) 1 applic TOP TID [facility] Last Admin: 09/07/16 17:03 Dose: 1 applic Ondansetron HCl (Zofran Inj) 4 mg IVP Q6 PRN PRN Reason: Nausea/Vomiting Last Admin: 09/02/16 12:11 Dose: 4 mg Pantoprazole Sodium (Protonix Ec Tab) 40 mg PO DAILY [facility] Last Admin: 09/08/16 09:17 Dose: 40 mg Sevelamer HCl (Renagel) 1,600 mg PO TID [facility] Last Admin: 09/08/16 09:17 Dose: 1,600 mg Topiramate (Topamax) 50 mg PO BID [facility] Last Admin: 09/08/16 09:20 Dose: 50 mg Vitamin B Complex/Vit C/Folic Acid (Nephro-Ajay) 1 tab PO DAILY [facility] Last Admin: 09/08/16 09:16 Dose: 1 tab - Labs Labs: 09/08/16 06:00 09/08/16 06:00 PT 16.5 SECONDS (9.6-11.2) H 08/28/16 16:11 INR 1.59 (0.92-1.08) H 08/28/16 16:11 APTT 38.7 SECONDS (23.3-32.5) H 08/28/16 16:11 - Constitutional Appears: Well, Non-toxic, No Acute Distress - Extremities Exam Additional comments: Right lower extremity exam: VASC- DP/PT pulses non-palpable, capillary refill < 5 sec to digits x 5, moderate 2+ pitting edema noted to anterior aspect of leg and dorsum of foot NEURO-gross pedal sensation is diminished DERM- superficial dry eschar noted to plantar aspect of heel, appears dry w/ no drainage on compression, no purulence, no increased warmth, no local or ascending erythema, no acute signs infection ORTHO- slight tenderness noted to distal posterior leg today, severe varus deformity of ankle noted - Neurological Exam Neurological Exam: Alert, Awake, Oriented x3 - Psychiatric Exam Psychiatric exam: Normal Affect, Normal Mood Assessment and Plan - Assessment and Plan (Free Text) Assessment: 46 yo female patient w/ pmhx of HTN, ESRD (on dialysis), coagulopathy, DM, charcot right foot PVD w/ stable dry eschar of right heel. Plan: -Pt S&E at bedside -Discussed plan w/ Dr. Pruett -Chart, labs, vitals reviewed: afebrile, WBC 14.5 -Dressing changed with wet to dry DSD, multipodus boot reapplied -c/w IV abx per ID -bone scan- findings consistent with cellulitis, no evidence of acute OM -MRI- no evidence of acute OM -Will continue to follow while patient remains in house
--- NOTE | 2016-09-08 11:20 | CP.PCM.PN ---
Subjective - Date & Time of Evaluation Date of Evaluation: 09/08/16 Time of Evaluation: 11:05 - Subjective Subjective: Resting comfortably Sinus rhythm at 100 BPM BP 96/70 mm Hg Poor insp, no rales, no gallop Last HD was 48 hrs back, will have HD tomorrow Labs noted/Discussed with Dr. Lyles Await results of Friday's imaging studies Stable for Sx post HD tomorrow (if needed.) Objective - Vital Signs/Intake and Output Vital Signs (last 24 hours): Temp Pulse Resp BP Pulse Ox 98.3 F 104 H 22 130/69 98 09/08/16 07:49 09/08/16 07:49 09/08/16 07:49 09/08/16 07:49 09/08/16 02:00 Intake and Output: 09/08/16 09/08/16 06:59 18:59 Intake Total 634 Balance 634 - Medications Medications: Current Medications Acetaminophen (Tylenol 325mg Tab) 650 mg PO Q4 PRN PRN Reason: Fever >100.4 F Last Admin: 08/28/16 15:23 Dose: 650 mg Acetaminophen (Tylenol 325mg Tab) 650 mg PO Q4 PRN PRN Reason: Pain, moderate (4-7) Last Admin: 09/03/16 03:33 Dose: 650 mg Acetylcysteine (Mucomyst 10% 4ml) 2 ml IH RBID [facility] Last Admin: 09/08/16 07:47 Dose: 2 ml Albuterol Sulfate (Albuterol 0.083% Inhal Barbie (2.5 Mg/3 Ml) Ud) 2.5 mg INH RBID [facility] Last Admin: 09/08/16 07:47 Dose: 2.5 mg Albuterol/Ipratropium (Duoneb 3 Mg/0.5 Mg (3 Ml) Ud) 3 ml INH RQ4 PRN PRN Reason: Shortness of Breath Last Admin: 09/05/16 02:15 Dose: 3 ml Apixaban (Eliquis) 5 mg PO BID [facility] PRN Reason: Protocol Last Admin: 09/08/16 09:14 Dose: 5 mg Aspirin (Ecotrin) 81 mg PO DAILY [facility] Last Admin: 09/08/16 09:13 Dose: 81 mg Atorvastatin Calcium (Lipitor) 40 mg PO DAILY [facility] Last Admin: 09/08/16 09:15 Dose: 40 mg Benzonatate (Tessalon Perles) 200 mg PO TID PRN PRN Reason: Cough Last Admin: 09/07/16 22:00 Dose: 200 mg Cinacalcet (Sensipar) 30 mg PO DAILY [facility] Last Admin: 09/08/16 09:19 Dose: 30 mg Collagenase (Santyl) 1 applic TOP DAILY [facility] Last Admin: 09/08/16 09:18 Dose: 1 applic Docusate Sodium (Colace) 200 mg PO BID [facility] Last Admin: 09/08/16 09:11 Dose: Not Given Epoetin Tha (Procrit) 20,000 unit IV MWF [facility] Last Admin: 09/06/16 21:15 Dose: 20,000 unit Guaifenesin/Codeine Phosphate (Robitussin W/Codeine) 10 ml PO Q4 PRN PRN Reason: Cough Last Admin: 09/08/16 10:29 Dose: 10 ml Hydrocortisone (Anusol-Hc) 1 applic CO BID [facility] Last Admin: 09/08/16 09:07 Dose: Not Given Piperacillin Sod/Tazobactam (Sod 2.25 gm/ Sodium Chloride) 100 mls @ 100 mls/ hr IVPB Q12 [facility] Last Admin: 09/08/16 09:29 Dose: 100 mls/hr Linezolid (Zyvox 600mg/300ml D5w) 300 mls @ 300 mls/hr IVPB Q12 [facility] Last Admin: 09/08/16 09:29 Dose: 300 mls/hr Meropenem 500 mg/ Sodium (Chloride) 100 mls @ 100 mls/hr IVPB DAILY [facility] Last Admin: 09/08/16 09:28 Dose: 100 mls/hr Amikacin Sulfate 250 mg/ (Sodium Chloride) 101 mls @ 100.609 mls/hr IVPB MWF [facility] Last Admin: 09/06/16 08:56 Dose: 100.609 mls/hr Insulin Detemir (Levemir) 28 units SC HS [facility] Insulin Human Lispro (Humalog) 8 units SC AC [facility] Last Admin: 09/07/16 17:23 Dose: 8 units Lidocaine (Lidoderm) 1 ea TD DAILY [facility] Last Admin: 09/08/16 09:14 Dose: 1 ea Medroxyprogesterone Acetate (Provera) 10 mg PO DAILY [facility] Stop: 09/17/16 09:01 Last Admin: 09/08/16 10:36 Dose: 10 mg Nystatin (Mycostatin Oint) 1 applic TOP TID [facility] Last Admin: 09/07/16 17:03 Dose: 1 applic Ondansetron HCl (Zofran Inj) 4 mg IVP Q6 PRN PRN Reason: Nausea/Vomiting Last Admin: 09/02/16 12:11 Dose: 4 mg Pantoprazole Sodium (Protonix Ec Tab) 40 mg PO DAILY [facility] Last Admin: 09/08/16 09:17 Dose: 40 mg Sevelamer HCl (Renagel) 1,600 mg PO TID [facility] Last Admin: 09/08/16 09:17 Dose: 1,600 mg Topiramate (Topamax) 50 mg PO BID [facility] Last Admin: 09/08/16 09:20 Dose: 50 mg Vitamin B Complex/Vit C/Folic Acid (Nephro-Ajay) 1 tab PO DAILY [facility] Last Admin: 09/08/16 09:16 Dose: 1 tab - Labs Labs: 09/08/16 06:00 09/08/16 06:00 PT 16.5 SECONDS (9.6-11.2) H 08/28/16 16:11 INR 1.59 (0.92-1.08) H 08/28/16 16:11 APTT 38.7 SECONDS (23.3-32.5) H 08/28/16 16:11
--- NOTE | 2016-09-08 12:38 | PN ---
DATE: 09/08/2016 The patient is seen and evaluated at the bedside. Events since admission reviewed. Input by PMD joseline reciated. A 46-year-old female with end-stage renal disease on dialysis, diabetes mellitus type 2, coagulopathy secondary to protein C and protein S insufficiency, on Eliquis and aspirin, peripheral arterial occl usive disease, status post right leg CT angiogram, awaiting report, ulcer of right heel, pneumonia an d menorrhagia, on ProAir. Overnight, remains afebrile. Telemetry, sinus tachycardia, blood pressure 115-130 over 69-91, respiratory rate 22, oxygen saturation 98% on oxygen supplement by 2 liters nasa l cannula. Uneventful overnight. This morning, alert, awake, follows commands appropriate. No naus ea, vomiting or diarrhea noted. Still with nonproductive cough. Denies chest pain, palpitation. No abdominal discomfort. Pain on right leg improved. PHYSICAL EXAMINATION: VITAL SIGNS: Temperature 98.3, heart rate of 104, regular, respiratory rate of 22, blood pressure 13 0/69. Intake 845, output 3000, negative balance 2155, status post hemodialysis last Friday. HEENT: Pupils reactive. Conjunctivae pale. Sclerae white. Pharynx congested. NECK: Supple, short neck, reduced oropharyngeal space. CHEST: Bilateral breath sounds, diminished intensity, distant. HEART: Rhythm regular. S1, S2 normal. No audible rub or murmur. ABDOMEN: Bowel sounds present, soft, nondistended. EXTREMITIES: Upper extremity positive for status post amputation third finger on the right hand. St atus post amputated second, third and fourth digits on the left hand. Radial pulse weak bilaterally. Lower extremities, left below-knee amputation, right foot in a soft cast. 1-2+ edema and right franklin l ulcer. SKIN: Warm to touch, color normal, capillary refill normal. NEUROLOGIC: Unremarkable. PSYCHIATRIC: Alert, oriented to name, place and time. CURRENT MEDICATIONS: Tylenol 650 q. 4 p.r.n., albuterol solution 2.5 mg twice daily, Mucomyst 10% 2 mL twice daily, Atrovent 3 mL q. 4 p.r.n., amikacin 250 mg with dialysis 3 times a week, Eliquis 5 mg twice daily, aspirin 81 mg daily, Lipitor 40 mg daily, Tessalon Perles 200 mg 3 times a day, Sensipa r 30 mg p.o. daily, Santyl 1 application topically , Colace 200 mg twice daily, Procrit 20,000 u nits 3 times a week, Mucinex 600/30 twice daily, hydrocortisone, Anusol-HC application per rectum twi ce daily, Levemir 24 units subQ at bedtime, vitamin B complex daily, Topamax 50 mg b.i.d., Zosyn 2.25 grams IV q. 12 hours. IMPRESSION: Cellulitis right lower extremity. Blood culture and PermCath grew Escherichia coli, now improving on Zosyn, Zyvox, meropenem. Appreciate ID input. Source suspected ulcer of the right jah t. Being followed by podiatry consult. Continue local wound care and antibiotic. Appreciate PMD re commendation for below-knee amputation to resolve further recurrence of the source of infection. Pne umonia, improved. Chest x-ray shows stable infiltrate right lower lobe. No new acute changes. Flui d retention, intermittent, in between dialysis with a suspected bronchospasm accounting for the cough . Stable on current bronchodilator and cough suppressant. End-stage renal disease, on hemodialysis 3 times a week. Peripheral vascular disease, diabetes mellitus type 2, being followed by endocrinolo gy consult. Pneumonia, as noted, stable, followed by pulmonary consult. Cardiology evaluation by Dr Joe Shepard appreciated and cleared for amputation if is considered. Will follow up with general surg [facility]. Continue on Eliquis and aspirin due to coagulopathy associated secondary to protein C and prote in S deficiency until decision for amputation is taken. Refugio Jarrell MD cc: [id number] TT: 09/08/2016 12:38:10 Confirmation # [id number] Dictation # [id number] en
--- NOTE | 2016-09-08 14:22 | CP.PCM.PN ---
Subjective - Date & Time of Evaluation Date of Evaluation: 09/08/16 Time of Evaluation: 14:22 - Subjective Subjective: id note wbc still elevated f/u cultures negative have reviewed notes and all related studies and agree that she would benefit from BKA I have also taken into account her prior clinical history c her upper extremities Objective - Vital Signs/Intake and Output Vital Signs (last 24 hours): Temp Pulse Resp BP Pulse Ox 98.4 F 108 H 21 93/55 L 98 09/08/16 12:00 09/08/16 12:00 09/08/16 12:00 09/08/16 12:00 09/08/16 02:00 Intake and Output: 09/08/16 09/08/16 06:59 18:59 Intake Total 634 Balance 634 - Medications Medications: Current Medications Acetaminophen (Tylenol 325mg Tab) 650 mg PO Q4 PRN PRN Reason: Fever >100.4 F Last Admin: 08/28/16 15:23 Dose: 650 mg Acetaminophen (Tylenol 325mg Tab) 650 mg PO Q4 PRN PRN Reason: Pain, moderate (4-7) Last Admin: 09/03/16 03:33 Dose: 650 mg Acetylcysteine (Mucomyst 10% 4ml) 2 ml IH RBID [facility] Last Admin: 09/08/16 07:47 Dose: 2 ml Albuterol Sulfate (Albuterol 0.083% Inhal Barbie (2.5 Mg/3 Ml) Ud) 2.5 mg INH RBID [facility] Last Admin: 09/08/16 07:47 Dose: 2.5 mg Albuterol/Ipratropium (Duoneb 3 Mg/0.5 Mg (3 Ml) Ud) 3 ml INH RQ4 PRN PRN Reason: Shortness of Breath Last Admin: 09/05/16 02:15 Dose: 3 ml Apixaban (Eliquis) 5 mg PO BID [facility] PRN Reason: Protocol Last Admin: 09/08/16 09:14 Dose: 5 mg Aspirin (Ecotrin) 81 mg PO DAILY [facility] Last Admin: 09/08/16 09:13 Dose: 81 mg Atorvastatin Calcium (Lipitor) 40 mg PO DAILY [facility] Last Admin: 09/08/16 09:15 Dose: 40 mg Benzonatate (Tessalon Perles) 200 mg PO TID PRN PRN Reason: Cough Last Admin: 09/07/16 22:00 Dose: 200 mg Cinacalcet (Sensipar) 30 mg PO DAILY [facility] Last Admin: 09/08/16 09:19 Dose: 30 mg Collagenase (Santyl) 1 applic TOP DAILY [facility] Last Admin: 09/08/16 09:18 Dose: 1 applic Docusate Sodium (Colace) 200 mg PO BID [facility] Last Admin: 09/08/16 09:11 Dose: Not Given Epoetin Tha (Procrit) 20,000 unit IV MWF [facility] Last Admin: 09/06/16 21:15 Dose: 20,000 unit Guaifenesin/Codeine Phosphate (Robitussin W/Codeine) 10 ml PO Q4 PRN PRN Reason: Cough Last Admin: 09/08/16 10:29 Dose: 10 ml Hydrocortisone (Anusol-Hc) 1 applic [place] BID [facility] Last Admin: 09/08/16 09:07 Dose: Not Given Piperacillin Sod/Tazobactam (Sod 2.25 gm/ Sodium Chloride) 100 mls @ 100 mls/ hr IVPB Q12 [facility] Last Admin: 09/08/16 09:29 Dose: 100 mls/hr Linezolid (Zyvox 600mg/300ml D5w) 300 mls @ 300 mls/hr IVPB Q12 [facility] Last Admin: 09/08/16 09:29 Dose: 300 mls/hr Meropenem 500 mg/ Sodium (Chloride) 100 mls @ 100 mls/hr IVPB DAILY [facility] Last Admin: 09/08/16 09:28 Dose: 100 mls/hr Amikacin Sulfate 250 mg/ (Sodium Chloride) 101 mls @ 100.609 mls/hr IVPB MWF [facility] Last Admin: 09/06/16 08:56 Dose: 100.609 mls/hr Insulin Detemir (Levemir) 28 units SC HS [facility] Insulin Human Lispro (Humalog) 8 units SC AC [facility] Last Admin: 09/07/16 17:23 Dose: 8 units Lidocaine (Lidoderm) 1 ea TD DAILY [facility] Last Admin: 09/08/16 09:14 Dose: 1 ea Medroxyprogesterone Acetate (Provera) 10 mg PO DAILY [facility] Stop: 09/17/16 09:01 Last Admin: 09/08/16 10:36 Dose: 10 mg Nystatin (Mycostatin Oint) 1 applic TOP TID [facility] Last Admin: 09/07/16 17:03 Dose: 1 applic Ondansetron HCl (Zofran Inj) 4 mg IVP Q6 PRN PRN Reason: Nausea/Vomiting Last Admin: 09/02/16 12:11 Dose: 4 mg Pantoprazole Sodium (Protonix Ec Tab) 40 mg PO DAILY [facility] Last Admin: 09/08/16 09:17 Dose: 40 mg Sevelamer HCl (Renagel) 1,600 mg PO TID [facility] Last Admin: 09/08/16 09:17 Dose: 1,600 mg Topiramate (Topamax) 50 mg PO BID [facility] Last Admin: 09/08/16 09:20 Dose: 50 mg Vitamin B Complex/Vit C/Folic Acid (Nephro-Ajay) 1 tab PO DAILY [facility] Last Admin: 09/08/16 09:16 Dose: 1 tab - Labs Labs: 09/08/16 06:00 09/08/16 06:00 PT 16.5 SECONDS (9.6-11.2) H 08/28/16 16:11 INR 1.59 (0.92-1.08) H 08/28/16 16:11 APTT 38.7 SECONDS (23.3-32.5) H 08/28/16 16:11
--- NOTE | 2016-09-08 21:42 | CP.PCM.PN ---
Subjective - Date & Time of Evaluation Date of Evaluation: 09/08/16 Time of Evaluation: 19:00 - Subjective Subjective: No Seizures on Topamax, she is studied for the causes of Leukocytosis, R/O Osteomyelitis. Objective - Vital Signs/Intake and Output Vital Signs (last 24 hours): Temp Pulse Resp BP Pulse Ox 98.9 F 108 H 20 98/60 L 98 09/08/16 20:00 09/08/16 20:00 09/08/16 20:00 09/08/16 20:00 09/08/16 20:00 Intake and Output: 09/08/16 09/09/16 18:59 06:59 Intake Total 300 Balance 300 - Medications Medications: Current Medications Acetaminophen (Tylenol 325mg Tab) 650 mg PO Q4 PRN PRN Reason: Fever >100.4 F Last Admin: 08/28/16 15:23 Dose: 650 mg Acetaminophen (Tylenol 325mg Tab) 650 mg PO Q4 PRN PRN Reason: Pain, moderate (4-7) Last Admin: 09/03/16 03:33 Dose: 650 mg Acetylcysteine (Mucomyst 10% 4ml) 2 ml IH RBID [facility] Last Admin: 09/08/16 19:19 Dose: 2 ml Albuterol Sulfate (Albuterol 0.083% Inhal Barbie (2.5 Mg/3 Ml) Ud) 2.5 mg INH RBID [facility] Last Admin: 09/08/16 19:19 Dose: 2.5 mg Albuterol/Ipratropium (Duoneb 3 Mg/0.5 Mg (3 Ml) Ud) 3 ml INH RQ4 PRN PRN Reason: Shortness of Breath Last Admin: 09/05/16 02:15 Dose: 3 ml Apixaban (Eliquis) 5 mg PO BID [facility] PRN Reason: Protocol Last Admin: 09/08/16 17:27 Dose: 5 mg Aspirin (Ecotrin) 81 mg PO DAILY [facility] Last Admin: 09/08/16 09:13 Dose: 81 mg Atorvastatin Calcium (Lipitor) 40 mg PO DAILY [facility] Last Admin: 09/08/16 09:15 Dose: 40 mg Benzonatate (Tessalon Perles) 200 mg PO TID PRN PRN Reason: Cough Last Admin: 09/07/16 22:00 Dose: 200 mg Cinacalcet (Sensipar) 30 mg PO DAILY [facility] Last Admin: 09/08/16 09:19 Dose: 30 mg Collagenase (Santyl) 1 applic TOP DAILY [facility] Last Admin: 09/08/16 09:18 Dose: 1 applic Docusate Sodium (Colace) 200 mg PO BID [facility] Last Admin: 09/08/16 17:26 Dose: Not Given Epoetin Tha (Procrit) 20,000 unit IV MWF [facility] Last Admin: 09/06/16 21:15 Dose: 20,000 unit Guaifenesin/Codeine Phosphate (Robitussin W/Codeine) 10 ml PO Q4 PRN PRN Reason: Cough Last Admin: 09/08/16 17:32 Dose: 10 ml Hydrocortisone (Anusol-Hc) 1 applic SC BID [facility] Last Admin: 09/08/16 17:26 Dose: Not Given Piperacillin Sod/Tazobactam (Sod 2.25 gm/ Sodium Chloride) 100 mls @ 100 mls/ hr IVPB Q12 [facility] Last Admin: 09/08/16 20:08 Dose: 100 mls/hr Linezolid (Zyvox 600mg/300ml D5w) 300 mls @ 300 mls/hr IVPB Q12 [facility] Last Admin: 09/08/16 20:06 Dose: 300 mls/hr Meropenem 500 mg/ Sodium (Chloride) 100 mls @ 100 mls/hr IVPB DAILY [facility] Last Admin: 09/08/16 09:28 Dose: 100 mls/hr Amikacin Sulfate 250 mg/ (Sodium Chloride) 101 mls @ 100.609 mls/hr IVPB MWF [facility] Last Admin: 09/06/16 08:56 Dose: 100.609 mls/hr Insulin Detemir (Levemir) 28 units SC HS [facility] Insulin Human Lispro (Humalog) 8 units SC AC [facility] Last Admin: 09/08/16 11:30 Dose: 8 units Lidocaine (Lidoderm) 1 ea TD DAILY [facility] Last Admin: 09/08/16 09:14 Dose: 1 ea Medroxyprogesterone Acetate (Provera) 10 mg PO DAILY [facility] Stop: 09/17/16 09:01 Last Admin: 09/08/16 10:36 Dose: 10 mg Nystatin (Mycostatin Oint) 1 applic TOP TID [facility] Last Admin: 09/08/16 17:52 Dose: Not Given Ondansetron HCl (Zofran Inj) 4 mg IVP Q6 PRN PRN Reason: Nausea/Vomiting Last Admin: 09/02/16 12:11 Dose: 4 mg Pantoprazole Sodium (Protonix Ec Tab) 40 mg PO DAILY [facility] Last Admin: 09/08/16 09:17 Dose: 40 mg Sevelamer HCl (Renagel) 1,600 mg PO TID [facility] Last Admin: 09/08/16 17:28 Dose: 1,600 mg Topiramate (Topamax) 50 mg PO BID [facility] Last Admin: 09/08/16 17:28 Dose: 50 mg Vitamin B Complex/Vit C/Folic Acid (Nephro-Ajay) 1 tab PO DAILY [facility] Last Admin: 09/08/16 09:16 Dose: 1 tab - Labs Labs: 09/08/16 06:00 09/08/16 06:00 PT 16.5 SECONDS (9.6-11.2) H 08/28/16 16:11 INR 1.59 (0.92-1.08) H 08/28/16 16:11 APTT 38.7 SECONDS (23.3-32.5) H 08/28/16 16:11 Assessment and Plan (1) Diabetes Status: Chronic (2) ESRD (end stage renal disease) Status: Chronic (3) Cellulitis of leg Status: Acute (4) Hyperlipidemia Status: Acute (5) Back pain Status: Acute (6) Bacteremia due to Gram-negative bacteria Status: Acute (7) Diabetes mellitus type 2 with peripheral artery disease Status: Acute (8) PVD (peripheral vascular disease) Status: Acute
[2016-09-08] MEDS: Insulin Detemir 100 Units/ml Inj SC SCH (22:00)
[2016-09-09] MEDS: guaiFENesin-Codeine 100-10mg/5ml Syrup (5 ml) UD PO PRN ×3 (04:52→14:39)
[2016-09-09] MEDS: Insulin Lispro (humaLOG) 100 Units/ml Inj SC SCH ×3 (07:41→16:48)
[2016-09-09] MEDS: Albuterol 0.083% Inhal Sol (2.5 mg/3 mL) UD INH SCH ×2 (07:52→19:42)
[2016-09-09] MEDS: Acetylcysteine 10% 4 ML IH SCH ×2 (07:52→19:42)
--- NOTE | 2016-09-09 08:42 | CP.PCM.PN ---
Subjective - Date & Time of Evaluation Date of Evaluation: 09/09/16 Time of Evaluation: 08:10 - Subjective Subjective: 46 yo female patient seen at bedside in ICU regarding ulceration of right heel. Pt seen resting comfortably in bed at time of visit. Patient states that she does feel a little better today. Denies f/n/v/c/sob/cp at this time. Denies any pain or discomfort to the right foot today, says the leg pain is much more comfortable. Sleeping and appetite have improved. Still reports cough. Patient' s multipodus boot is intact to right heel at time of visit. Objective - Vital Signs/Intake and Output Vital Signs (last 24 hours): Temp Pulse Resp BP Pulse Ox 97.8 F 107 H 21 129/78 100 09/09/16 07:35 09/09/16 07:35 09/09/16 07:35 09/09/16 07:35 09/09/16 07:35 Intake and Output: 09/09/16 09/09/16 06:59 18:59 Intake Total 660 40 Balance 660 40 - Medications Medications: Current Medications Acetaminophen (Tylenol 325mg Tab) 650 mg PO Q4 PRN PRN Reason: Fever >100.4 F Last Admin: 08/28/16 15:23 Dose: 650 mg Acetaminophen (Tylenol 325mg Tab) 650 mg PO Q4 PRN PRN Reason: Pain, moderate (4-7) Last Admin: 09/03/16 03:33 Dose: 650 mg Acetylcysteine (Mucomyst 10% 4ml) 2 ml IH RBID [facility] Last Admin: 09/09/16 07:52 Dose: 2 ml Albuterol Sulfate (Albuterol 0.083% Inhal Barbie (2.5 Mg/3 Ml) Ud) 2.5 mg INH RBID [facility] Last Admin: 09/09/16 07:52 Dose: 2.5 mg Albuterol/Ipratropium (Duoneb 3 Mg/0.5 Mg (3 Ml) Ud) 3 ml INH RQ4 PRN PRN Reason: Shortness of Breath Last Admin: 09/05/16 02:15 Dose: 3 ml Apixaban (Eliquis) 5 mg PO BID [facility] PRN Reason: Protocol Last Admin: 09/08/16 17:27 Dose: 5 mg Aspirin (Ecotrin) 81 mg PO DAILY [facility] Last Admin: 09/08/16 09:13 Dose: 81 mg Atorvastatin Calcium (Lipitor) 40 mg PO DAILY [facility] Last Admin: 09/08/16 09:15 Dose: 40 mg Benzonatate (Tessalon Perles) 200 mg PO TID PRN PRN Reason: Cough Last Admin: 09/07/16 22:00 Dose: 200 mg Cinacalcet (Sensipar) 30 mg PO DAILY [facility] Last Admin: 09/08/16 09:19 Dose: 30 mg Collagenase (Santyl) 1 applic TOP DAILY [facility] Last Admin: 09/08/16 09:18 Dose: 1 applic Docusate Sodium (Colace) 200 mg PO BID [facility] Last Admin: 09/08/16 17:26 Dose: Not Given Epoetin Tha (Procrit) 20,000 unit IV MWF [facility] Last Admin: 09/06/16 21:15 Dose: 20,000 unit Guaifenesin/Codeine Phosphate (Robitussin W/Codeine) 10 ml PO Q4 PRN PRN Reason: Cough Last Admin: 09/09/16 04:52 Dose: 10 ml Hydrocortisone (Anusol-Hc) 1 applic IN BID [facility] Last Admin: 09/08/16 17:26 Dose: Not Given Piperacillin Sod/Tazobactam (Sod 2.25 gm/ Sodium Chloride) 100 mls @ 100 mls/ hr IVPB Q12 [facility] Last Admin: 09/08/16 20:08 Dose: 100 mls/hr Linezolid (Zyvox 600mg/300ml D5w) 300 mls @ 300 mls/hr IVPB Q12 [facility] Last Admin: 09/08/16 20:06 Dose: 300 mls/hr Meropenem 500 mg/ Sodium (Chloride) 100 mls @ 100 mls/hr IVPB DAILY [facility] Last Admin: 09/08/16 09:28 Dose: 100 mls/hr Amikacin Sulfate 250 mg/ (Sodium Chloride) 101 mls @ 100.609 mls/hr IVPB MWF [facility] Last Admin: 09/06/16 08:56 Dose: 100.609 mls/hr Insulin Detemir (Levemir) 28 units SC HS [facility] Last Admin: 09/08/16 22:00 Dose: 28 u Insulin Human Lispro (Humalog) 8 units SC AC [facility] Last Admin: 09/09/16 07:41 Dose: 8 units Lidocaine (Lidoderm) 1 ea TD DAILY [facility] Last Admin: 09/08/16 09:14 Dose: 1 ea Medroxyprogesterone Acetate (Provera) 10 mg PO DAILY [facility] Stop: 09/17/16 09:01 Last Admin: 09/08/16 10:36 Dose: 10 mg Nystatin (Mycostatin Oint) 1 applic TOP TID [facility] Last Admin: 09/08/16 17:52 Dose: Not Given Ondansetron HCl (Zofran Inj) 4 mg IVP Q6 PRN PRN Reason: Nausea/Vomiting Last Admin: 09/02/16 12:11 Dose: 4 mg Pantoprazole Sodium (Protonix Ec Tab) 40 mg PO DAILY [facility] Last Admin: 09/08/16 09:17 Dose: 40 mg Sevelamer HCl (Renagel) 1,600 mg PO TID [facility] Last Admin: 09/08/16 17:28 Dose: 1,600 mg Topiramate (Topamax) 50 mg PO BID [facility] Last Admin: 09/08/16 17:28 Dose: 50 mg Vitamin B Complex/Vit C/Folic Acid (Nephro-Ajay) 1 tab PO DAILY [facility] Last Admin: 09/08/16 09:16 Dose: 1 tab - Labs Labs: 09/08/16 06:00 09/08/16 06:00 PT 16.5 SECONDS (9.6-11.2) H 08/28/16 16:11 INR 1.59 (0.92-1.08) H 08/28/16 16:11 APTT 38.7 SECONDS (23.3-32.5) H 08/28/16 16:11 - Constitutional Appears: No Acute Distress, Chronically Ill - Extremities Exam Additional comments: Right lower extremity exam: VASC- DP/PT pulses non-palpable, capillary refill < 5 sec to digits x 5, moderate 2+ pitting edema noted to anterior aspect of leg and dorsum of foot NEURO-gross pedal sensation is diminished DERM- superficial dry eschar noted to plantar aspect of heel, appears dry w/ no drainage on compression, no purulence, no increased warmth, no local or ascending erythema, no acute signs infection ORTHO- slight tenderness noted to distal posterior leg today, severe varus deformity of ankle noted - Neurological Exam Neurological Exam: Alert, Awake, Oriented x3 - Psychiatric Exam Psychiatric exam: Normal Affect, Normal Mood Assessment and Plan - Assessment and Plan (Free Text) Assessment: 46 yo female patient w/ pmhx of HTN, ESRD (on dialysis), coagulopathy, DM, charcot right foot PVD w/ stable dry eschar of right heel. Plan: -Pt S&E at bedside -Discussed plan w/ Dr. Pruett -Chart, labs, vitals reviewed: afebrile, WBC 13k -Dressing changed with wet to dry DSD, multipodus boot reapplied -c/w IV abx per ID -Due to the results of 1) bone scan findings consistent with cellulitis, no evidence of acute OM & 2) MRI- no evidence of acute OM. podiatry opinion is that no acute or chronic osteomyelits is indicated that this time. As such the limb is not in immediate treat to life and pt is responding to antibiotics. Podiatry service not recommending surgical intervention at this time as patient 5 year survival rate is poor compounded compounded with potential mental impact on quality of life to be suffered s/p bilateral below knee amputations. -Will continue to follow while patient remains in house
--- NOTE | 2016-09-09 09:24 | CP.PCM.PN ---
Subjective - Date & Time of Evaluation Date of Evaluation: 09/09/16 Time of Evaluation: 09:00 - Subjective Subjective: Stable overnight, finished her breakfast Slept well, no chills or fever Sinus tach at 100-106 BPM BP 130/70 mm Hg Scheduled for HD today Stable from cardiac point of view. Objective - Vital Signs/Intake and Output Vital Signs (last 24 hours): Temp Pulse Resp BP Pulse Ox 97.8 F 107 H 21 129/78 100 09/09/16 07:35 09/09/16 07:35 09/09/16 07:35 09/09/16 07:35 09/09/16 07:35 Intake and Output: 09/09/16 09/09/16 06:59 18:59 Intake Total 660 40 Balance 660 40 - Medications Medications: Current Medications Acetaminophen (Tylenol 325mg Tab) 650 mg PO Q4 PRN PRN Reason: Fever >100.4 F Last Admin: 08/28/16 15:23 Dose: 650 mg Acetaminophen (Tylenol 325mg Tab) 650 mg PO Q4 PRN PRN Reason: Pain, moderate (4-7) Last Admin: 09/03/16 03:33 Dose: 650 mg Acetylcysteine (Mucomyst 10% 4ml) 2 ml IH RBID [facility] Last Admin: 09/09/16 07:52 Dose: 2 ml Albuterol Sulfate (Albuterol 0.083% Inhal Barbie (2.5 Mg/3 Ml) Ud) 2.5 mg INH RBID [facility] Last Admin: 09/09/16 07:52 Dose: 2.5 mg Albuterol/Ipratropium (Duoneb 3 Mg/0.5 Mg (3 Ml) Ud) 3 ml INH RQ4 PRN PRN Reason: Shortness of Breath Last Admin: 09/05/16 02:15 Dose: 3 ml Apixaban (Eliquis) 5 mg PO BID [facility] PRN Reason: Protocol Last Admin: 09/08/16 17:27 Dose: 5 mg Aspirin (Ecotrin) 81 mg PO DAILY [facility] Last Admin: 09/08/16 09:13 Dose: 81 mg Atorvastatin Calcium (Lipitor) 40 mg PO DAILY [facility] Last Admin: 09/08/16 09:15 Dose: 40 mg Benzonatate (Tessalon Perles) 200 mg PO TID PRN PRN Reason: Cough Last Admin: 09/07/16 22:00 Dose: 200 mg Cinacalcet (Sensipar) 30 mg PO DAILY [facility] Last Admin: 09/08/16 09:19 Dose: 30 mg Collagenase (Santyl) 1 applic TOP DAILY [facility] Last Admin: 09/08/16 09:18 Dose: 1 applic Docusate Sodium (Colace) 200 mg PO BID [facility] Last Admin: 09/08/16 17:26 Dose: Not Given Epoetin Tha (Procrit) 20,000 unit IV MWF [facility] Last Admin: 09/06/16 21:15 Dose: 20,000 unit Guaifenesin/Codeine Phosphate (Robitussin W/Codeine) 10 ml PO Q4 PRN PRN Reason: Cough Last Admin: 09/09/16 04:52 Dose: 10 ml Hydrocortisone (Anusol-Hc) 1 applic IN BID [facility] Last Admin: 09/08/16 17:26 Dose: Not Given Piperacillin Sod/Tazobactam (Sod 2.25 gm/ Sodium Chloride) 100 mls @ 100 mls/ hr IVPB Q12 [facility] Last Admin: 09/08/16 20:08 Dose: 100 mls/hr Linezolid (Zyvox 600mg/300ml D5w) 300 mls @ 300 mls/hr IVPB Q12 [facility] Last Admin: 09/08/16 20:06 Dose: 300 mls/hr Meropenem 500 mg/ Sodium (Chloride) 100 mls @ 100 mls/hr IVPB DAILY [facility] Last Admin: 09/08/16 09:28 Dose: 100 mls/hr Amikacin Sulfate 250 mg/ (Sodium Chloride) 101 mls @ 100.609 mls/hr IVPB MWF [facility] Last Admin: 09/06/16 08:56 Dose: 100.609 mls/hr Insulin Detemir (Levemir) 28 units SC HS [facility] Last Admin: 09/08/16 22:00 Dose: 28 u Insulin Human Lispro (Humalog) 8 units SC AC [facility] Last Admin: 09/09/16 07:41 Dose: 8 units Lidocaine (Lidoderm) 1 ea TD DAILY [facility] Last Admin: 09/08/16 09:14 Dose: 1 ea Medroxyprogesterone Acetate (Provera) 10 mg PO DAILY [facility] Stop: 09/17/16 09:01 Last Admin: 09/08/16 10:36 Dose: 10 mg Nystatin (Mycostatin Oint) 1 applic TOP TID [facility] Last Admin: 09/08/16 17:52 Dose: Not Given Ondansetron HCl (Zofran Inj) 4 mg IVP Q6 PRN PRN Reason: Nausea/Vomiting Last Admin: 09/02/16 12:11 Dose: 4 mg Pantoprazole Sodium (Protonix Ec Tab) 40 mg PO DAILY [facility] Last Admin: 09/08/16 09:17 Dose: 40 mg Sevelamer HCl (Renagel) 1,600 mg PO TID [facility] Last Admin: 09/08/16 17:28 Dose: 1,600 mg Topiramate (Topamax) 50 mg PO BID [facility] Last Admin: 09/08/16 17:28 Dose: 50 mg Vitamin B Complex/Vit C/Folic Acid (Nephro-Ajay) 1 tab PO DAILY [facility] Last Admin: 09/08/16 09:16 Dose: 1 tab - Labs Labs: 09/08/16 06:00 09/08/16 06:00 PT 16.5 SECONDS (9.6-11.2) H 08/28/16 16:11 INR 1.59 (0.92-1.08) H 08/28/16 16:11 APTT 38.7 SECONDS (23.3-32.5) H 08/28/16 16:11
[2016-09-09] MEDS: Hydrocortisone 2.5% (Rectal) CREAM PR SCH ×2 (09:29→16:47)
[2016-09-09] MEDS: Lidocaine 5% Patch TD SCH (09:31)
[2016-09-09] MEDS: Meropenem 500 MG in Sodium Chloride 0.9% 100 ML IVPB SCH (09:32)
[2016-09-09] MEDS: Multivitamin Vitamin B Complex (Nephro-Vite) Tab PO SCH (09:33)
[2016-09-09] MEDS: Nystatin Ointment TOP SCH ×3 (09:33→16:49)
[2016-09-09] MEDS: Santyl Collagenase OINTMENT TOP SCH (09:34)
[2016-09-09] MEDS: Pantoprazole 40 mg EC Tab PO SCH (09:34)
[2016-09-09] MEDS: Linezolid 600 mg in D5W 300 ml 300 ML IVPB SCH ×2 (09:36→21:00)
--- NOTE | 2016-09-09 10:19 | CP.PCM.PN ---
Subjective - Date & Time of Evaluation Date of Evaluation: 09/09/16 Time of Evaluation: 10:15 - Subjective Subjective: Patient awake in bed Feels good No shortness of breath or difficulty breathing Vital sign appeared to be okay Physical exam Vital sign is okay Chest clear Heart no rubs Abdomen soft Extremity no significant changes from previous . Right foot remain about the same The lab Hemoglobin dropping to keep eye on hemoglobin if she need more blood transfusion despite that she is receiving 20,000 units of EPO. I wonder if Zyvox adding up to the anemia? Impression and plan Patient is for hemodialysis now as ordered Ultrafiltration about 1500 mL as tolerated Potassium bath 3 mEq Keep monitoring vital sign closely Objective - Vital Signs/Intake and Output Vital Signs (last 24 hours): Temp Pulse Resp BP Pulse Ox 97.8 F 110 H 12 134/62 100 09/09/16 07:35 09/09/16 09:59 09/09/16 09:59 09/09/16 09:59 09/09/16 09:59 Intake and Output: 09/09/16 09/09/16 06:59 18:59 Intake Total 660 640 Balance 660 640 - Medications Medications: Current Medications Acetaminophen (Tylenol 325mg Tab) 650 mg PO Q4 PRN PRN Reason: Fever >100.4 F Last Admin: 08/28/16 15:23 Dose: 650 mg Acetaminophen (Tylenol 325mg Tab) 650 mg PO Q4 PRN PRN Reason: Pain, moderate (4-7) Last Admin: 09/03/16 03:33 Dose: 650 mg Acetylcysteine (Mucomyst 10% 4ml) 2 ml IH RBID [facility] Last Admin: 09/09/16 07:52 Dose: 2 ml Albuterol Sulfate (Albuterol 0.083% Inhal Barbie (2.5 Mg/3 Ml) Ud) 2.5 mg INH RBID [facility] Last Admin: 09/09/16 07:52 Dose: 2.5 mg Albuterol/Ipratropium (Duoneb 3 Mg/0.5 Mg (3 Ml) Ud) 3 ml INH RQ4 PRN PRN Reason: Shortness of Breath Last Admin: 09/05/16 02:15 Dose: 3 ml Apixaban (Eliquis) 5 mg PO BID [facility] PRN Reason: Protocol Last Admin: 09/09/16 09:31 Dose: 5 mg Aspirin (Ecotrin) 81 mg PO DAILY [facility] Last Admin: 09/09/16 09:30 Dose: 81 mg Atorvastatin Calcium (Lipitor) 40 mg PO DAILY [facility] Last Admin: 09/09/16 09:32 Dose: 40 mg Benzonatate (Tessalon Perles) 200 mg PO TID PRN PRN Reason: Cough Last Admin: 09/07/16 22:00 Dose: 200 mg Cinacalcet (Sensipar) 30 mg PO DAILY [facility] Last Admin: 09/09/16 09:35 Dose: 30 mg Collagenase (Santyl) 1 applic TOP DAILY [facility] Last Admin: 09/09/16 09:34 Dose: 1 applic Docusate Sodium (Colace) 200 mg PO BID [facility] Last Admin: 09/09/16 09:30 Dose: Not Given Epoetin Tha (Procrit) 20,000 unit IV [facility] Last Admin: 09/06/16 21:15 Dose: 20,000 unit Guaifenesin/Codeine Phosphate (Robitussin W/Codeine) 10 ml PO Q4 PRN PRN Reason: Cough Last Admin: 09/09/16 09:38 Dose: 10 ml Hydrocortisone (Anusol-Hc) 1 applic HI BID [facility] Last Admin: 09/09/16 09:29 Dose: 1 applic Piperacillin Sod/Tazobactam (Sod 2.25 gm/ Sodium Chloride) 100 mls @ 100 mls/ hr IVPB Q12 [facility] Last Admin: 09/09/16 09:35 Dose: 100 mls/hr Linezolid (Zyvox 600mg/300ml D5w) 300 mls @ 300 mls/hr IVPB Q12 [facility] Last Admin: 09/09/16 09:36 Dose: 300 mls/hr Meropenem 500 mg/ Sodium (Chloride) 100 mls @ 100 mls/hr IVPB DAILY [facility] Last Admin: 09/09/16 09:32 Dose: 100 mls/hr Amikacin Sulfate 250 mg/ (Sodium Chloride) 101 mls @ 100.609 mls/hr IVPB MWF [facility] Last Admin: 09/09/16 09:28 Dose: 100.609 mls/hr Insulin Detemir (Levemir) 28 units SC HS [facility] Last Admin: 09/08/16 22:00 Dose: 28 u Insulin Human Lispro (Humalog) 8 units SC AC [facility] Last Admin: 09/09/16 07:41 Dose: 8 units Lidocaine (Lidoderm) 1 ea TD DAILY [facility] Last Admin: 09/09/16 09:31 Dose: 1 ea Medroxyprogesterone Acetate (Provera) 10 mg PO DAILY [facility] Stop: 09/17/16 09:01 Last Admin: 09/09/16 09:34 Dose: 10 mg Nystatin (Mycostatin Oint) 1 applic TOP TID [facility] Last Admin: 09/09/16 09:33 Dose: 1 applic Ondansetron HCl (Zofran Inj) 4 mg IVP Q6 PRN PRN Reason: Nausea/Vomiting Last Admin: 09/02/16 12:11 Dose: 4 mg Pantoprazole Sodium (Protonix Ec Tab) 40 mg PO DAILY [facility] Last Admin: 09/09/16 09:34 Dose: 40 mg Sevelamer HCl (Renagel) 1,600 mg PO TID [facility] Last Admin: 09/09/16 09:34 Dose: 1,600 mg Topiramate (Topamax) 50 mg PO BID [facility] Last Admin: 09/09/16 09:35 Dose: 50 mg Vitamin B Complex/Vit C/Folic Acid (Nephro-Ajay) 1 tab PO DAILY [facility] Last Admin: 09/09/16 09:33 Dose: 1 tab - Labs Labs: 09/08/16 06:00 09/08/16 06:00 PT 16.5 SECONDS (9.6-11.2) H 08/28/16 16:11 INR 1.59 (0.92-1.08) H 08/28/16 16:11 APTT 38.7 SECONDS (23.3-32.5) H 08/28/16 16:11 Assessment and Plan (1) ESRD (end stage renal disease) Status: Chronic (2) Cellulitis of leg Status: Acute
--- NOTE | 2016-09-09 12:00 | CT ---
PROCEDURE: CT Angiography Abdomen, Pelvis and Lower Extremity with Contrast HISTORY: visiualized circulation on right lower extremity COMPARISON: None. TECHNIQUE: Technique: CT angiography of the abdomen, pelvis and bilateral lower extremities performed in the arterial phase of enhancement. Coronal and sagittal reformats, and well as rotating MIP images of the vessels generated at the workstation. Intravenous contrast dose: 96 mL of Visipaque 320 Radiation dose: Total exam DLP = 1854.73 mGy-cm. This CT exam was performed using one or more of the following dose reduction techniques: Automated exposure control, adjustment of the mA and/or kV according to patient size, and/or use of iterative reconstruction technique. FINDINGS: CT ANGIOGRAPHY: ABDOMINAL AORTA:: Diffuse atherosclerotic disease. MAJOR AORTIC BRANCHES: Celiac [place]: Unremarkable. Superior mesenteric artery: Unremarkable. Inferior mesenteric artery: Unremarkable. Renal arteries: Focal moderate stenosis in the proximal portion of the right renal artery. There is also moderate to mildly severe focal stenosis at the proximal left renal artery. PELVIC ARTERIES: Right Common Iliac: Focal mild stenosis seen at the origin of the right common iliac artery. Right External Iliac: Diffuse atherosclerotic calcification. Small foci of mild stenosis seen at the mid and distal right external iliac artery. Right Internal Iliac: Diffuse atherosclerotic disease and foci of moderate stenosis seen. Left Common Iliac: Diffuse atherosclerotic disease and foci of mild stenosis. Left External Iliac: Focal moderate stenosis seen at the midportion of the left external iliac artery. Left Internal Iliac: Foci of mild stenosis seen. RIGHT LOWER EXTREMITY ARTERIES: Right Common Femoral: Diffuse atherosclerotic disease without evidence of focal stenosis. Right Superficial Femoral: Focal moderate stenosis approximately 75-80 percent seen at the origin and proximal right superficial femoral artery. Right Profunda Femoris: Demonstrate diffuse atherosclerotic disease. Right Popliteal:Diffuse atherosclerotic disease. Right Anterior Tibial: Focal moderate to mildly severe stenosis at the origin of the right anterior tibial artery. Right Tibioperoneal Trunk: Focal moderate stenosis seen at the right tibioperoneal trunk. Right Posterior Tibial: Severe stenosis versus occlusion seen at the mid to distal right posterior tibial artery. Right Peroneal: Patent demonstrate diffuse atherosclerotic disease Right dorsalis pedis : Small size. LEFT LOWER EXTREMITY ARTERIES: Left Common Femoral: Unremarkable. Left Superficial Femoral: 2 foci of severe stenosis seen at the origin and proximal portion of the left superficial femoral artery. Foci of moderate to severe stenosis seen also at the mid and distal portion. There is graft seen at the anterior aspect of the left groin adjacent to the left superficial femoral vein which is occluded. Left Profunda Femoris: Diffuse atherosclerotic calcification. Left Popliteal: Foci of severe stenosis seen at the mid and distal left popliteal artery. Patient status post left below-knee amputation. . NON-ANGIOGRAPHIC ASPECT OF THE EXAM: LOWER THORAX: Small focus of airspace consolidation seen at the right lung base may represent atelectasis. LIVER: Heterogeneous low-attenuation focus seen at the left liver lobe of uncertain etiology. Differential diagnosis includes infarction focal fat infiltration or neoplasm. GALLBLADDER AND BILE DUCTS: Unremarkable. PANCREAS: Unremarkable. No gross lesion or ductal dilatation. SPLEEN: Unremarkable. ADRENALS: Unremarkable. No mass. KIDNEYS AND URETERS: Again seen is complex cystic lesion at the right kidney measures 4.1 x 5.1 centimeter. STOMACH AND BOWEL: Unremarkable. No obstruction. No gross mural thickening. APPENDIX: No evidence of appendicitis. PERITONEUM: Unremarkable. No free fluid. No free air. LYMPH NODES: Unremarkable. No enlarged lymph nodes. BLADDER: Diffuse urinary bladder wall thickening is noted. REPRODUCTIVE: Heterogeneous uterus contains foci of calcification and soft tissue lesions likely represent fibroids. BONES: No acute fracture. Diffuse changes suggestive of renal osteodystrophy. Degenerative changes seen at the hips left more than right. OTHER FINDINGS: None. IMPRESSION: Suboptimal/somewhat limited study due to poor contrast bolus injection. Focal moderate to mildly severe stenosis seen at the origin of the right superficial femoral artery. Multiple low foci of moderate stenosis seen in the right superficial femoral artery, popliteal artery and tibial arteries in the [place] as described above. Severe atherosclerotic disease at the left leg as described above. Patient status post amputation of the left Hodges [id number]. Moderate to severe stenosis at the proximal portion of bilateral renal arteries. Focal hypodensity seen at the left liver lobe of uncertain etiology may represent focal fatty infiltration versus neoplasm versus infarction. If indicated further assessment by MRI or ultrasound may be obtained. Multiple subcutaneous collateral veins seen. Re- demonstration of complex cystic lesion at the right kidney may represent hemorrhagic cyst. The possibility of neoplasm is not totally excluded. Further assessment by ultrasound is recommended. Preliminary report was submitted by virtual Radiology.
--- NOTE | 2016-09-09 12:56 | CP.CCUPN ---
CCU Subjective - Physician Review Events Since Last Encounter (Free Text): 09/09/16 13:06 Patient is clinically stable, no complaints. CCU Objective - Vital Signs / Intake & Output Vital Signs (Last 4 hours): Vital Signs Pulse Resp BP Pulse Ox 09/09/16 09:59 110 H 12 134/62 100 Intake and Output (Last 8hrs): Intake & Output 09/08/16 09/09/16 09/09/16 22:59 06:59 14:59 Intake Total 480 180 640 Balance 480 180 640 Intake: IV 30 0 Intake, Piggyback 400 600 Oral 80 150 40 Other: # Bowel Movements 1 - Physical Exam Head: Positive for: Atraumatic, Normocephalic Pupils: Positive for: PERRL Pharnyx: Positive for: ERYTHEMA Neck: Positive for: Normal Range of Motion. Negative for: JVD Respiratory/Chest: Positive for: Wheezes (bibasilar), Other (Right SC dialysis catheter and PICC line on right arm). 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) Neurological: Positive for: Speech Normal, Other (Alert awake oriented x 3) Skin: Positive for: Warm, Normal Color Psychiatric: Positive for: Alert, Oriented x 3, Normal Insight, Normal Concentration - Medications Active Medications: Active Medications Generic Name Dose Route Start Last Admin Trade Name Freq PRN Reason Stop Dose Admin Acetaminophen 650 mg 08/28/16 00:09 08/28/16 15:23 Tylenol 325mg Tab PO 650 mg Q4 PRN Administration Fever >100.4 F Acetaminophen 650 mg 08/28/16 00:12 09/03/16 03:33 Tylenol 325mg Tab PO 650 mg Q4 PRN Administration Pain, moderate (4-7) Acetylcysteine 2 ml 09/03/16 20:00 09/09/16 07:52 Mucomyst 10% 4ml IH 2 ml RBID [facility] Administration Albuterol Sulfate 2.5 mg 09/03/16 20:00 09/09/16 07:52 Albuterol 0.083% Inhal Barbie (2.5 Mg/3 Ml) Ud INH 2.5 mg RBID [facility] Administration Albuterol/Ipratropium 3 ml 08/29/16 18:39 09/05/16 02:15 Duoneb 3 Mg/0.5 Mg (3 Ml) Ud INH 3 ml RQ4 PRN Administration Shortness of Breath Apixaban 5 mg 08/28/16 09:15 09/09/16 09:31 Eliquis PO 5 mg BID [facility] Administration Protocol Aspirin 81 mg 09/07/16 09:00 09/09/16 09:30 Ecotrin PO 81 mg DAILY [facility] Administration Atorvastatin Calcium 40 mg 08/28/16 09:00 09/09/16 09:32 Lipitor PO 40 mg DAILY [facility] Administration Benzonatate 200 mg 09/04/16 16:13 09/07/16 22:00 Tessalon Perles PO 200 mg TID PRN Administration Cough Cinacalcet 30 mg 08/28/16 11:15 09/09/16 09:35 Sensipar PO 30 mg DAILY [facility] Administration Collagenase 1 applic 08/28/16 09:00 09/09/16 09:34 Santyl TOP 1 applic DAILY [facility] Administration Docusate Sodium 200 mg 08/28/16 09:00 09/09/16 09:30 Colace PO Not Given BID [facility] Epoetin Tha 20,000 unit 09/02/16 09:00 09/06/16 21:15 Procrit IV 20,000 unit MWF [facility] Administration Guaifenesin/Codeine Phosphate 10 ml 09/07/16 18:20 09/09/16 09:38 Robitussin W/Codeine PO 10 ml Q4 PRN Administration Cough Hydrocortisone 1 applic 09/01/16 10:45 09/09/16 09:29 Anusol-Hc FL 1 applic BID [facility] Administration Piperacillin Sod/Tazobactam 100 mls @ 100 mls/hr 08/27/16 21:00 09/09/16 09: 35 Sod 2.25 gm/ Sodium Chloride IVPB 100 mls/hr Q12 [facility] Administration Linezolid 300 mls @ 300 mls/hr 08/27/16 21:00 09/09/16 09:36 Zyvox 600mg/300ml D5w IVPB 300 mls/hr Q12 [facility] Administration Meropenem 500 mg/ Sodium 100 mls @ 100 mls/hr 08/29/16 09:00 09/09/16 09:32 Chloride IVPB 100 mls/hr DAILY [facility] Administration Amikacin Sulfate 250 mg/ 101 mls @ 100.609 mls/hr 09/04/16 09:00 09/09/16 09: 28 Sodium Chloride IVPB 100.609 mls/hr MWF [facility] Administration Insulin Detemir 28 units 09/08/16 22:00 09/08/16 22:00 Levemir SC 28 u HS [facility] Administration Insulin Human Lispro 8 units 09/06/16 16:30 09/09/16 12:12 Humalog SC 8 units AC [facility] Administration Lidocaine 1 ea 08/29/16 13:30 09/09/16 09:31 Lidoderm TD 1 ea DAILY [facility] Administration Medroxyprogesterone Acetate 10 mg 09/08/16 09:00 09/09/16 09:34 Provera PO 09/17/16 09:01 10 mg DAILY [facility] Administration Nystatin 1 applic 09/06/16 09:00 09/09/16 12:13 Mycostatin Oint TOP 1 applic TID [facility] Administration Ondansetron HCl 4 mg 08/29/16 19:00 09/02/16 12:11 Zofran Inj IVP 4 mg Q6 PRN Administration Nausea/Vomiting Pantoprazole Sodium 40 mg 09/06/16 09:00 09/09/16 09:34 Protonix Ec Tab PO 40 mg DAILY [facility] Administration Sevelamer HCl 1,600 mg 08/28/16 11:11 09/09/16 12:13 Renagel PO 1,600 mg TID [facility] Administration Topiramate 50 mg 08/30/16 18:45 09/09/16 09:35 Topamax PO 50 mg BID [facility] Administration Vitamin B Complex/Vit C/Folic Acid 1 tab 08/28/16 09:00 09/09/16 09:33 Nephro-Ajay PO 1 tab DAILY [facility] Administration - Patient Studies Lab Studies: Lab Studies 09/09/16 09/08/16 09/08/16 Range/Units 05:20 23:27 17:59 POC Glucose (mg/dL) 118 H 195 H 268 H (65-110) mg/dL Laboratory Results - last 24 hr 09/08/16 09/08/16 09/09/16 17:59 23:27 05:20 POC Glucose (mg/dL) 268 H 195 H 118 H Fingerstick Blood Sugar Results: 118 Review of Systems - Review of Systems All systems: reviewed and no additional remarkable complaints except - Musculoskeletal Additional comments: R toes blackened and slightly shriveled. Poor capillary fill on great toe. Critical Care Progress Note - Nutrition Nutrition: Nutrition Category Date Time Status Renal Diet [DIET] Diets 08/30/16 Dinner Active Assessment/Plan (1) Osteomyelitis Assessment and plan: 46 yo F. PMHx ESRD on HD (3 times a week) , HTN, DM type 2, Protein C/ Protein S deficiency ,Severe PVD, chronic disease anemia was admitted for RLE cellulitis. Neuro: Alert and oriented 3. Continue Topamax. Pulm: No acute issues, breathing spontaneously on room air CV: Hemodynamically stable Hem: Anemia of chronic disease, continue Procrit. Protein C&S deficiency. Medroxyprogesterone 10 mg by mouth daily. Continue aspirin and Eliquis. Renal: End-stage renal disease on hemodialysis. Continue cinacalcet and Renagel. Endo: DM type II on Lantus and short-acting insulin sliding scale for coverage GI: Diabetic diet ID: Cellulitis with possible osteomyelitis, continue current antibiotic regimen. Zosyn, amikacin, meropenem and Zyvox. Nystatin ointments to topical area. DVT proph - Eliquis GI proph - Protonix Code status - full code Crtical Care Time spent 35 minutes Multi-disciplinary rounds were performed with house staff, nursing, speech therapy, respiratory therapy, pharmacy and nutrition with integrated input from the primary team/attending and other consulting services. The documented time is cumulative and includes review of patient data/exams/labs/chart review and examination of the patient on rounds and throughout the day; time is exclusive of any procedures or teaching time. Current Visit: No Status: Acute
[2016-09-09 14:01] LABS: BASO # 0.1 K/uL (0.0-0.2); BASO % 0.9 % (0.0-2.0); EOS # 0.2 K/uL (0.0-0.7); EOS % 1.8 % (0.0-4.0); HEMATOCRIT 29.2 % (34.0-47.0); LYMPH % 7.4 % (20.0-40.0); MEAN CELL VOLUME 91.8 fl (81.0-99.0); MEAN CORPUSCULAR HEMOGLOBIN 28.7 pg (27.0-31.0); MEAN CORPUSCULAR HGB CONC 31.3 g/dL (33.0-37.0); MEAN PLATELET VOLUME 8.7 fl (7.2-11.7); MONO # 0.9 K/uL (0.0-0.8); MONO % 7.1 % (0.0-10.0); NEUT # 10.8 K/uL (1.8-7.0); NEUT % 82.8 % (50.0-75.0); PLATELET COUNT 290 K/uL (130-400)
[2016-09-09 14:16] LABS: ALB/GLOB RATIO 0.6 (1.0-2.1); BILIRUBIN,TOTAL 0.8 mg/dl (0.2-1.3); CALCIUM 8.5 mg/dL (8.4-10.2); MAGNESIUM 2.3 MG/DL (1.6-2.3); POTASSIUM 3.9 MMOL/L (3.6-5.0); TOTAL PROTEIN 7.6 G/DL (6.3-8.2)
[2016-09-09 15:00] LABS: BASOPHIL 1 % (0-2); EOSINOPHIL 1 % (0-7); NEUTROPHIL 85 % (42-75); TOTAL CELLS COUNTED 100
[2016-09-09 15:03] LABS: LARGE PLATELETS PRESENT
--- NOTE | 2016-09-09 15:13 | CP.PCM.PN ---
Subjective - Date & Time of Evaluation Date of Evaluation: 09/09/16 Time of Evaluation: 15:05 - Subjective Subjective: PRIMARY MEDICAL ATTENDING NOTE: SEE MY DETAILED NOTE OF YESTERDAY, which will not be repeated here. In short, I believe the patient needs surgery to eliminate the source of infection in the right foot and to allow for eventual right lower leg prosthesis so she can walk again. I spoke with Dr. Gordon who was treating her for Charcot joint and ulcer of right heel. He believes the foot ulcer was not the source of infection, although the continued tenderness and warmth of the right calf muscles does not support that view. He also believes that the boot/brace she was using allowed her to pivot off that leg for needed transfers - although it also caused the heel ulcer. He believes that with bilateral BK prostheses she will never walk again. He said he would review the CT angiogram and comment on his conclusions tomorrow. Meanwhile, I have placed a call to Dr. Brian Pastrana to obtain his input. The longer the patient remains in the hospital the greater the chance for a complication. Patient feels a little better. Robitussin-AC is controlling the cough, and she is due for hemodialysis today. The codeine has stopped the frequent stooling. Glucoses are better controlled. She continues on [address] Guadarrama's note to the effect that Zyvox could be contributing to the anemia is appreciated, and we will run this by Dr. Lemon. Of course, the persistent menorrhagia has also contributed to the anemia, but with the start of Provera this should stop. Breast excoriations are responding to calcium alginate dressings. Dr. Maguire has prescribed Topamax because of seizure activity while septic. Will ask if this can be discontinued now that she is stable. Objective - Vital Signs/Intake and Output Vital Signs (last 24 hours): Temp Pulse Resp BP Pulse Ox 97.8 F 110 H 12 134/62 100 09/09/16 07:35 09/09/16 09:59 09/09/16 09:59 09/09/16 09:59 09/09/16 09:59 Intake and Output: 09/09/16 09/09/16 06:59 18:59 Intake Total 660 640 Balance 660 640 - Medications Medications: Current Medications Acetaminophen (Tylenol 325mg Tab) 650 mg PO Q4 PRN PRN Reason: Fever >100.4 F Last Admin: 08/28/16 15:23 Dose: 650 mg Acetaminophen (Tylenol 325mg Tab) 650 mg PO Q4 PRN PRN Reason: Pain, moderate (4-7) Last Admin: 09/03/16 03:33 Dose: 650 mg Acetylcysteine (Mucomyst 10% 4ml) 2 ml IH RBID [facility] Last Admin: 09/09/16 07:52 Dose: 2 ml Albuterol Sulfate (Albuterol 0.083% Inhal Barbie (2.5 Mg/3 Ml) Ud) 2.5 mg INH RBID [facility] Last Admin: 09/09/16 07:52 Dose: 2.5 mg Albuterol/Ipratropium (Duoneb 3 Mg/0.5 Mg (3 Ml) Ud) 3 ml INH RQ4 PRN PRN Reason: Shortness of Breath Last Admin: 09/05/16 02:15 Dose: 3 ml Apixaban (Eliquis) 5 mg PO BID [facility] PRN Reason: Protocol Last Admin: 09/09/16 09:31 Dose: 5 mg Aspirin (Ecotrin) 81 mg PO DAILY [facility] Last Admin: 09/09/16 09:30 Dose: 81 mg Atorvastatin Calcium (Lipitor) 40 mg PO DAILY [facility] Last Admin: 09/09/16 09:32 Dose: 40 mg Benzonatate (Tessalon Perles) 200 mg PO TID PRN PRN Reason: Cough Last Admin: 09/07/16 22:00 Dose: 200 mg Cinacalcet (Sensipar) 30 mg PO DAILY [facility] Last Admin: 09/09/16 09:35 Dose: 30 mg Collagenase (Santyl) 1 applic TOP DAILY [facility] Last Admin: 09/09/16 09:34 Dose: 1 applic Docusate Sodium (Colace) 200 mg PO BID [facility] Last Admin: 09/09/16 09:30 Dose: Not Given Epoetin Tha (Procrit) 20,000 unit IV MWF [facility] Last Admin: 09/06/16 21:15 Dose: 20,000 unit Guaifenesin/Codeine Phosphate (Robitussin W/Codeine) 10 ml PO Q4 PRN PRN Reason: Cough Last Admin: 09/09/16 14:39 Dose: 10 ml Hydrocortisone (Anusol-Hc) 1 applic MD BID [facility] Last Admin: 09/09/16 09:29 Dose: 1 applic Piperacillin Sod/Tazobactam (Sod 2.25 gm/ Sodium Chloride) 100 mls @ 100 mls/ hr IVPB Q12 [facility] Last Admin: 09/09/16 09:35 Dose: 100 mls/hr Linezolid (Zyvox 600mg/300ml D5w) 300 mls @ 300 mls/hr IVPB Q12 [facility] Last Admin: 09/09/16 09:36 Dose: 300 mls/hr Meropenem 500 mg/ Sodium (Chloride) 100 mls @ 100 mls/hr IVPB DAILY [facility] Last Admin: 09/09/16 09:32 Dose: 100 mls/hr Amikacin Sulfate 250 mg/ (Sodium Chloride) 101 mls @ 100.609 mls/hr IVPB MWF [facility] Last Admin: 09/09/16 09:28 Dose: 100.609 mls/hr Insulin Detemir (Levemir) 28 units SC HS [facility] Last Admin: 09/08/16 22:00 Dose: 28 u Insulin Human Lispro (Humalog) 8 units SC AC [facility] Last Admin: 09/09/16 12:12 Dose: 8 units Lidocaine (Lidoderm) 1 ea TD DAILY [facility] Last Admin: 09/09/16 09:31 Dose: 1 ea Medroxyprogesterone Acetate (Provera) 10 mg PO DAILY [facility] Stop: 09/17/16 09:01 Last Admin: 09/09/16 09:34 Dose: 10 mg Nystatin (Mycostatin Oint) 1 applic TOP TID [facility] Last Admin: 09/09/16 12:13 Dose: 1 applic Ondansetron HCl (Zofran Inj) 4 mg IVP Q6 PRN PRN Reason: Nausea/Vomiting Last Admin: 09/02/16 12:11 Dose: 4 mg Pantoprazole Sodium (Protonix Ec Tab) 40 mg PO DAILY [facility] Last Admin: 09/09/16 09:34 Dose: 40 mg Sevelamer HCl (Renagel) 1,600 mg PO TID [facility] Last Admin: 09/09/16 12:13 Dose: 1,600 mg Topiramate (Topamax) 50 mg PO BID [facility] Last Admin: 09/09/16 09:35 Dose: 50 mg Vitamin B Complex/Vit C/Folic Acid (Nephro-Ajay) 1 tab PO DAILY [facility] Last Admin: 09/09/16 09:33 Dose: 1 tab - Labs Labs: 09/09/16 13:45 09/09/16 13:45 PT 16.5 SECONDS (9.6-11.2) H 08/28/16 16:11 INR 1.59 (0.92-1.08) H 08/28/16 16:11 APTT 38.7 SECONDS (23.3-32.5) H 08/28/16 16:11 Report Date : 09/09/2016 11:55:06 My Comment : PROCEDURE: CT Angiography Abdomen, Pelvis and Lower Extremity with Contrast HISTORY: visiualized circulation on right lower extremity COMPARISON: None. TECHNIQUE: Technique: CT angiography of the abdomen, pelvis and bilateral lower extremities performed in the arterial phase of enhancement. Coronal and sagittal reformats, and well as rotating MIP images of the vessels generated at the workstation. Intravenous contrast dose: 96 mL of Visipaque 320 Radiation dose: Total exam DLP = 1854.73 mGy-cm. This CT exam was performed using one or more of the following dose reduction techniques: Automated exposure control, adjustment of the mA and/or kV according to patient size, and/or use of iterative reconstruction technique. FINDINGS: CT ANGIOGRAPHY: ABDOMINAL AORTA:: Diffuse atherosclerotic disease. MAJOR AORTIC BRANCHES: Celiac [place]: Unremarkable. Superior mesenteric artery: Unremarkable. Inferior mesenteric artery: Unremarkable. Renal arteries: Focal moderate stenosis in the proximal portion of the right renal artery. There is also moderate to mildly severe focal stenosis at the proximal left renal artery. PELVIC ARTERIES: Right Common Iliac: Focal mild stenosis seen at the origin of the right common iliac artery. Right External Iliac: Diffuse atherosclerotic calcification. Small foci of mild stenosis seen at the mid and distal right external iliac artery. Right Internal Iliac: Diffuse atherosclerotic disease and foci of moderate stenosis seen. Left Common Iliac: Diffuse atherosclerotic disease and foci of mild stenosis. Left External Iliac: Focal moderate stenosis seen at the midportion of the left external iliac artery. Left Internal Iliac: Foci of mild stenosis seen. RIGHT LOWER EXTREMITY ARTERIES: Right Common Femoral: Diffuse atherosclerotic disease without evidence of focal stenosis. Right Superficial Femoral: Focal moderate stenosis approximately 75-80 percent seen at the origin and proximal right superficial femoral artery. Right Profunda Femoris: Demonstrate diffuse atherosclerotic disease. Right Popliteal:Diffuse atherosclerotic disease. Right Anterior Tibial: Focal moderate to mildly severe stenosis at the origin of the right anterior tibial artery. Right Tibioperoneal Trunk: Focal moderate stenosis seen at the right tibioperoneal trunk. Right Posterior Tibial: Severe stenosis versus occlusion seen at the mid to distal right posterior tibial artery. Right Peroneal: Patent demonstrate diffuse atherosclerotic disease Right dorsalis pedis : Small size. LEFT LOWER EXTREMITY ARTERIES: Left Common Femoral: Unremarkable. Left Superficial Femoral: 2 foci of severe stenosis seen at the origin and proximal portion of the left superficial femoral artery. Foci of moderate to severe stenosis seen also at the mid and distal portion. There is graft seen at the anterior aspect of the left groin adjacent to the left superficial femoral vein which is occluded. Left Profunda Femoris: Diffuse atherosclerotic calcification. Left Popliteal: Foci of severe stenosis seen at the mid and distal left popliteal artery. Patient status post left below-knee amputation. . NON-ANGIOGRAPHIC ASPECT OF THE EXAM: LOWER THORAX: Small focus of airspace consolidation seen at the right lung base may represent atelectasis. LIVER: Heterogeneous low-attenuation focus seen at the left liver lobe of uncertain etiology. Differential diagnosis includes infarction focal fat infiltration or neoplasm. GALLBLADDER AND BILE DUCTS: Unremarkable. PANCREAS: Unremarkable. No gross lesion or ductal dilatation. SPLEEN: Unremarkable. ADRENALS: Unremarkable. No mass. KIDNEYS AND URETERS: Again seen is complex cystic lesion at the right kidney measures 4.1 x 5.1 centimeter. STOMACH AND BOWEL: Unremarkable. No obstruction. No gross mural thickening. APPENDIX: No evidence of appendicitis. PERITONEUM: Unremarkable. No free fluid. No free air. LYMPH NODES: Unremarkable. No enlarged lymph nodes. BLADDER: Diffuse urinary bladder wall thickening is noted. REPRODUCTIVE: Heterogeneous uterus contains foci of calcification and soft tissue lesions likely represent fibroids. BONES: No acute fracture. Diffuse changes suggestive of renal osteodystrophy. Degenerative changes seen at the hips left more than right. OTHER FINDINGS: None. IMPRESSION: Suboptimal/somewhat limited study due to poor contrast bolus injection. Focal moderate to mildly severe stenosis seen at the origin of the right superficial femoral artery. Multiple low foci of moderate stenosis seen in the right superficial femoral artery, popliteal artery and tibial arteries in the [place] as described above. Severe atherosclerotic disease at the left leg as described above. Patient status post amputation of the left Hodges [id number]. Moderate to severe stenosis at the proximal portion of bilateral renal arteries. Focal hypodensity seen at the left liver lobe of uncertain etiology may represent focal fatty infiltration versus neoplasm versus infarction. If indicated further assessment by MRI or ultrasound may be obtained. Multiple subcutaneous collateral veins seen. Re- demonstration of complex cystic lesion at the right kidney may represent hemorrhagic cyst. The possibility of neoplasm is not totally excluded. Further assessment by ultrasound is recommended. Preliminary report was submitted by virtual Radiology. - Constitutional Appears: No Acute Distress - Head Exam Head Exam: NORMAL INSPECTION - Eye Exam Eye Exam: Normal appearance - ENT Exam ENT Exam: Mucous Membranes Moist - Neck Exam Additional comments: Right subclavian Permacath intact. - Respiratory Exam Respiratory Exam: NORMAL BREATHING PATTERN Additional comments: Inspiratory crackles at bases. - Cardiovascular Exam Cardiovascular Exam: REGULAR RHYTHM, +S1, +S2 - GI/Abdominal Exam GI & Abdominal Exam: Soft, Normal Bowel Sounds - Extremities Exam Additional comments: As before. Dressing intact right foot/heel. Right upper arm PICC line intact. - Back Exam Back Exam: NORMAL INSPECTION - Neurological Exam Neurological Exam: Alert, Awake, CN II-XII Intact, Oriented x3 Assessment and Plan (1) ESRD (end stage renal disease) on dialysis Assessment & Plan: Stable, continues on hemodialysis. Status: Chronic (2) DM type 2 (diabetes mellitus, type 2) Assessment & Plan: Being controlled on short and long acting insulins. Status: Chronic (3) Coagulopathy Assessment & Plan: Amply documented by CT angiogram. 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 Status: Chronic (4) Peripheral arterial occlusive disease Assessment & Plan: Severe - see angiogram report. Status: Chronic (5) Ulcer of right heel Assessment & Plan: See SUBJECTIVE -ABOVE. Status: Resolved (6) SIRS (systemic inflammatory response syndrome) Assessment & Plan: Resolved for now, but potentially could recur if the source of infection is not eliminated. Status: Acute (7) Pneumonia Assessment & Plan: CT still shows some atelectasis (?) at right base. Dr. Flores is following. Status: Acute (8) Menorrhagia Status: Acute
--- NOTE | 2016-09-09 20:14 | CP.PCM.PN ---
Subjective - Date & Time of Evaluation Date of Evaluation: 09/09/16 Time of Evaluation: 07:00 Objective - Vital Signs/Intake and Output Vital Signs (last 24 hours): Temp Pulse Resp BP Pulse Ox 98.7 F 113 H 16 163/89 H 100 09/09/16 16:00 09/09/16 17:58 09/09/16 17:58 09/09/16 17:58 09/09/16 17:58 Intake and Output: 09/09/16 09/10/16 18:59 06:59 Intake Total 1040 65 Balance 1040 65 - Medications Medications: Current Medications Acetaminophen (Tylenol 325mg Tab) 650 mg PO Q4 PRN PRN Reason: Fever >100.4 F Last Admin: 08/28/16 15:23 Dose: 650 mg Acetaminophen (Tylenol 325mg Tab) 650 mg PO Q4 PRN PRN Reason: Pain, moderate (4-7) Last Admin: 09/03/16 03:33 Dose: 650 mg Acetylcysteine (Mucomyst 10% 4ml) 2 ml IH RBID [facility] Last Admin: 09/09/16 19:42 Dose: 2 ml Albuterol Sulfate (Albuterol 0.083% Inhal Barbie (2.5 Mg/3 Ml) Ud) 2.5 mg INH RBID [facility] Last Admin: 09/09/16 19:42 Dose: 2.5 mg Albuterol/Ipratropium (Duoneb 3 Mg/0.5 Mg (3 Ml) Ud) 3 ml INH RQ4 PRN PRN Reason: Shortness of Breath Last Admin: 09/05/16 02:15 Dose: 3 ml Apixaban (Eliquis) 5 mg PO BID [facility] PRN Reason: Protocol Last Admin: 09/09/16 16:48 Dose: 5 mg Aspirin (Ecotrin) 81 mg PO DAILY [facility] Last Admin: 09/09/16 09:30 Dose: 81 mg Atorvastatin Calcium (Lipitor) 40 mg PO DAILY [facility] Last Admin: 09/09/16 09:32 Dose: 40 mg Benzonatate (Tessalon Perles) 200 mg PO TID PRN PRN Reason: Cough Last Admin: 09/07/16 22:00 Dose: 200 mg Cinacalcet (Sensipar) 30 mg PO DAILY [facility] Last Admin: 09/09/16 09:35 Dose: 30 mg Collagenase (Santyl) 1 applic TOP DAILY [facility] Last Admin: 09/09/16 09:34 Dose: 1 applic Docusate Sodium (Colace) 200 mg PO BID [facility] Last Admin: 09/09/16 16:47 Dose: Not Given Epoetin Tha (Procrit) 20,000 unit IV MWF [facility] Last Admin: 09/06/16 21:15 Dose: 20,000 unit Guaifenesin/Codeine Phosphate (Robitussin W/Codeine) 10 ml PO Q4 PRN PRN Reason: Cough Last Admin: 09/09/16 14:39 Dose: 10 ml Hydrocortisone (Anusol-Hc) 1 applic DE BID [facility] Last Admin: 09/09/16 16:47 Dose: Not Given Piperacillin Sod/Tazobactam (Sod 2.25 gm/ Sodium Chloride) 100 mls @ 100 mls/ hr IVPB Q12 [facility] Last Admin: 09/09/16 09:35 Dose: 100 mls/hr Linezolid (Zyvox 600mg/300ml D5w) 300 mls @ 300 mls/hr IVPB Q12 [facility] Last Admin: 09/09/16 09:36 Dose: 300 mls/hr Meropenem 500 mg/ Sodium (Chloride) 100 mls @ 100 mls/hr IVPB DAILY [facility] Last Admin: 09/09/16 09:32 Dose: 100 mls/hr Amikacin Sulfate 250 mg/ (Sodium Chloride) 101 mls @ 100.609 mls/hr IVPB MWF [facility] Last Admin: 09/09/16 09:28 Dose: 100.609 mls/hr Insulin Detemir (Levemir) 28 units SC HS [facility] Last Admin: 09/08/16 22:00 Dose: 28 u Insulin Human Lispro (Humalog) 8 units SC AC [facility] Last Admin: 09/09/16 16:48 Dose: 8 units Lidocaine (Lidoderm) 1 ea TD DAILY [facility] Last Admin: 09/09/16 09:31 Dose: 1 ea Medroxyprogesterone Acetate (Provera) 10 mg PO DAILY [facility] Stop: 09/17/16 09:01 Last Admin: 09/09/16 09:34 Dose: 10 mg Nystatin (Mycostatin Oint) 1 applic TOP TID [facility] Last Admin: 09/09/16 16:49 Dose: 1 applic Ondansetron HCl (Zofran Inj) 4 mg IVP Q6 PRN PRN Reason: Nausea/Vomiting Last Admin: 09/02/16 12:11 Dose: 4 mg Pantoprazole Sodium (Protonix Ec Tab) 40 mg PO DAILY [facility] Last Admin: 09/09/16 09:34 Dose: 40 mg Sevelamer HCl (Renagel) 1,600 mg PO TID [facility] Last Admin: 09/09/16 16:50 Dose: 1,600 mg Topiramate (Topamax) 50 mg PO BID [facility] Last Admin: 09/09/16 16:51 Dose: 50 mg Vitamin B Complex/Vit C/Folic Acid (Nephro-Ajay) 1 tab PO DAILY [facility] Last Admin: 09/09/16 09:33 Dose: 1 tab - Labs Labs: 09/09/16 13:45 09/09/16 13:45 PT 16.5 SECONDS (9.6-11.2) H 08/28/16 16:11 INR 1.59 (0.92-1.08) H 08/28/16 16:11 APTT 38.7 SECONDS (23.3-32.5) H 08/28/16 16:11
[2016-09-09] MEDS: Insulin Detemir 100 Units/ml Inj SC SCH (21:11)
--- NOTE | 2016-09-09 21:55 | EEG ---
DATE: 09/09/2016 INTRODUCTION: This is a digitally recorded EEG monitoring using standard EEG montages. BACKGROUND RHYTHM: The EEG shows a background activity of 9 Hz alpha activity in the parietooccipita l region. The EEG activity is bilaterally symmetrical and synchronous. There is attenuation of the background activity on eye opening. No sleep recording was noted. ABNORMAL POTENTIALS: No spikes, sharp waves or focal slowing was seen. PHOTIC STIMULATION AND HYPERVENTILATION: Photic stimulation did not reveal any abnormality. Hyperve ntilation was not performed. IMPRESSION: Normal EEG. No epileptiform activity seen in this EEG recording. Ab Barnhart MD cc: [id number] TT: 09/09/2016 21:54:07 Confirmation # [id number] Dictation # [id number]
[2016-09-10] MEDS: guaiFENesin-Codeine 100-10mg/5ml Syrup (5 ml) UD PO PRN ×3 (01:25→19:47)
--- NOTE | 2016-09-10 01:42 | CP.PCM.PN ---
Subjective - Date & Time of Evaluation Date of Evaluation: 09/09/16 Time of Evaluation: 20:05 - Subjective Subjective: No seizures on Topamax, a surgery is pending on her foot. Objective - Vital Signs/Intake and Output Vital Signs (last 24 hours): Temp Pulse Resp BP Pulse Ox 98.2 F 107 H 100 H 126/76 100 09/09/16 20:00 09/09/16 20:00 09/09/16 20:00 09/09/16 20:00 09/09/16 17:58 Intake and Output: 09/09/16 09/10/16 18:59 06:59 Intake Total 1040 65 Balance 1040 65 - Medications Medications: Current Medications Acetaminophen (Tylenol 325mg Tab) 650 mg PO Q4 PRN PRN Reason: Fever >100.4 F Last Admin: 08/28/16 15:23 Dose: 650 mg Acetaminophen (Tylenol 325mg Tab) 650 mg PO Q4 PRN PRN Reason: Pain, moderate (4-7) Last Admin: 09/03/16 03:33 Dose: 650 mg Acetylcysteine (Mucomyst 10% 4ml) 2 ml IH RBID [facility] Last Admin: 09/09/16 19:42 Dose: 2 ml Albuterol Sulfate (Albuterol 0.083% Inhal Barbie (2.5 Mg/3 Ml) Ud) 2.5 mg INH RBID [facility] Last Admin: 09/09/16 19:42 Dose: 2.5 mg Albuterol/Ipratropium (Duoneb 3 Mg/0.5 Mg (3 Ml) Ud) 3 ml INH RQ4 PRN PRN Reason: Shortness of Breath Last Admin: 09/05/16 02:15 Dose: 3 ml Apixaban (Eliquis) 5 mg PO BID [facility] PRN Reason: Protocol Last Admin: 09/09/16 16:48 Dose: 5 mg Aspirin (Ecotrin) 81 mg PO DAILY [facility] Last Admin: 09/09/16 09:30 Dose: 81 mg Atorvastatin Calcium (Lipitor) 40 mg PO DAILY [facility] Last Admin: 09/09/16 09:32 Dose: 40 mg Benzonatate (Tessalon Perles) 200 mg PO TID PRN PRN Reason: Cough Last Admin: 09/07/16 22:00 Dose: 200 mg Cinacalcet (Sensipar) 30 mg PO DAILY [facility] Last Admin: 09/09/16 09:35 Dose: 30 mg Collagenase (Santyl) 1 applic TOP DAILY [facility] Last Admin: 09/09/16 09:34 Dose: 1 applic Docusate Sodium (Colace) 200 mg PO BID [facility] Last Admin: 09/09/16 16:47 Dose: Not Given Epoetin Tha (Procrit) 20,000 unit IV MWF [facility] Last Admin: 09/06/16 21:15 Dose: 20,000 unit Guaifenesin/Codeine Phosphate (Robitussin W/Codeine) 10 ml PO Q4 PRN PRN Reason: Cough Last Admin: 09/10/16 01:25 Dose: 10 ml Hydrocortisone (Anusol-Hc) 1 applic ME BID [facility] Last Admin: 09/09/16 16:47 Dose: Not Given Piperacillin Sod/Tazobactam (Sod 2.25 gm/ Sodium Chloride) 100 mls @ 100 mls/ hr IVPB Q12 [facility] Last Admin: 09/09/16 21:09 Dose: 100 mls/hr Linezolid (Zyvox 600mg/300ml D5w) 300 mls @ 300 mls/hr IVPB Q12 [facility] Last Admin: 09/09/16 21:00 Dose: 300 mls/hr Meropenem 500 mg/ Sodium (Chloride) 100 mls @ 100 mls/hr IVPB DAILY [facility] Last Admin: 09/09/16 09:32 Dose: 100 mls/hr Amikacin Sulfate 250 mg/ (Sodium Chloride) 101 mls @ 100.609 mls/hr IVPB MWF [facility] Last Admin: 09/09/16 09:28 Dose: 100.609 mls/hr Insulin Detemir (Levemir) 28 units SC HS [facility] Last Admin: 09/09/16 21:11 Dose: 28 u Insulin Human Lispro (Humalog) 8 units SC AC [facility] Last Admin: 09/09/16 16:48 Dose: 8 units Lidocaine (Lidoderm) 1 ea TD DAILY [facility] Last Admin: 09/09/16 09:31 Dose: 1 ea Medroxyprogesterone Acetate (Provera) 10 mg PO DAILY [facility] Stop: 09/17/16 09:01 Last Admin: 09/09/16 09:34 Dose: 10 mg Nystatin (Mycostatin Oint) 1 applic TOP TID [facility] Last Admin: 09/09/16 16:49 Dose: 1 applic Ondansetron HCl (Zofran Inj) 4 mg IVP Q6 PRN PRN Reason: Nausea/Vomiting Last Admin: 09/02/16 12:11 Dose: 4 mg Pantoprazole Sodium (Protonix Ec Tab) 40 mg PO DAILY [facility] Last Admin: 09/09/16 09:34 Dose: 40 mg Sevelamer HCl (Renagel) 1,600 mg PO TID [facility] Last Admin: 09/09/16 16:50 Dose: 1,600 mg Topiramate (Topamax) 50 mg PO BID [facility] Last Admin: 09/09/16 16:51 Dose: 50 mg Vitamin B Complex/Vit C/Folic Acid (Nephro-Ajay) 1 tab PO DAILY [facility] Last Admin: 09/09/16 09:33 Dose: 1 tab - Labs Labs: 09/09/16 13:45 09/09/16 13:45 PT 16.5 SECONDS (9.6-11.2) H 08/28/16 16:11 INR 1.59 (0.92-1.08) H 08/28/16 16:11 APTT 38.7 SECONDS (23.3-32.5) H 08/28/16 16:11 Assessment and Plan (1) Diabetes Status: Chronic (2) ESRD (end stage renal disease) Status: Chronic (3) Cellulitis of leg Status: Acute (4) Hyperlipidemia Status: Acute (5) Back pain Status: Acute (6) Bacteremia due to Gram-negative bacteria Status: Acute (7) Diabetes mellitus type 2 with peripheral artery disease Status: Acute (8) PVD (peripheral vascular disease) Status: Acute
[2016-09-10] MEDS: Albuterol 0.083% Inhal Sol (2.5 mg/3 mL) UD INH SCH (07:21)
[2016-09-10] MEDS: Acetylcysteine 10% 4 ML IH SCH (07:21)
--- NOTE | 2016-09-10 07:24 | CP.PCM.PN ---
Subjective - Date & Time of Evaluation Date of Evaluation: 09/10/16 Time of Evaluation: 08:20 - Subjective Subjective: 46 yo female patient seen at bedside in ICU regarding ulceration and resolving cellulits of right heel. Pt seen resting comfortably in bed at time of visit. Patient states that she feels "okay' today no major changes in he symptoms since yesterday. She denies recent f/n/v/c/sob/cp at this time. Reports pain t the right leg only when it is touched. She sleep and eats well. Still reports cough. Patient's multipodus boot is intact to right heel at time of visit. Objective - Vital Signs/Intake and Output Vital Signs (last 24 hours): Temp Pulse Resp BP Pulse Ox 99.4 F 113 H 20 114/54 L 100 09/10/16 04:00 09/10/16 06:00 09/10/16 06:00 09/10/16 06:00 09/10/16 06:00 Intake and Output: 09/10/16 09/10/16 06:59 18:59 Intake Total 255 Output Total 3000 Balance -2745 - Medications Medications: Current Medications Acetaminophen (Tylenol 325mg Tab) 650 mg PO Q4 PRN PRN Reason: Fever >100.4 F Last Admin: 08/28/16 15:23 Dose: 650 mg Acetaminophen (Tylenol 325mg Tab) 650 mg PO Q4 PRN PRN Reason: Pain, moderate (4-7) Last Admin: 09/03/16 03:33 Dose: 650 mg Acetylcysteine (Mucomyst 10% 4ml) 2 ml IH RBID [facility] Last Admin: 09/10/16 07:21 Dose: 2 ml Albuterol Sulfate (Albuterol 0.083% Inhal Barbie (2.5 Mg/3 Ml) Ud) 2.5 mg INH RBID [facility] Last Admin: 09/10/16 07:21 Dose: 2.5 mg Albuterol/Ipratropium (Duoneb 3 Mg/0.5 Mg (3 Ml) Ud) 3 ml INH RQ4 PRN PRN Reason: Shortness of Breath Last Admin: 09/05/16 02:15 Dose: 3 ml Apixaban (Eliquis) 5 mg PO BID [facility] PRN Reason: Protocol Last Admin: 09/09/16 16:48 Dose: 5 mg Aspirin (Ecotrin) 81 mg PO DAILY [facility] Last Admin: 09/09/16 09:30 Dose: 81 mg Atorvastatin Calcium (Lipitor) 40 mg PO DAILY [facility] Last Admin: 09/09/16 09:32 Dose: 40 mg Benzonatate (Tessalon Perles) 200 mg PO TID PRN PRN Reason: Cough Last Admin: 09/07/16 22:00 Dose: 200 mg Cinacalcet (Sensipar) 30 mg PO DAILY [facility] Last Admin: 09/09/16 09:35 Dose: 30 mg Collagenase (Santyl) 1 applic TOP DAILY [facility] Last Admin: 09/09/16 09:34 Dose: 1 applic Docusate Sodium (Colace) 200 mg PO BID [facility] Last Admin: 09/09/16 16:47 Dose: Not Given Epoetin Tha (Procrit) 20,000 unit IV [facility] Last Admin: 09/06/16 21:15 Dose: 20,000 unit Guaifenesin/Codeine Phosphate (Robitussin W/Codeine) 10 ml PO Q4 PRN PRN Reason: Cough Last Admin: 09/10/16 01:25 Dose: 10 ml Hydrocortisone (Anusol-Hc) 1 applic [place] BID [facility] Last Admin: 09/09/16 16:47 Dose: Not Given Piperacillin Sod/Tazobactam (Sod 2.25 gm/ Sodium Chloride) 100 mls @ 100 mls/ hr IVPB Q12 [facility] Last Admin: 09/09/16 21:09 Dose: 100 mls/hr Linezolid (Zyvox 600mg/300ml D5w) 300 mls @ 300 mls/hr IVPB Q12 [facility] Last Admin: 09/09/16 21:00 Dose: 300 mls/hr Meropenem 500 mg/ Sodium (Chloride) 100 mls @ 100 mls/hr IVPB DAILY [facility] Last Admin: 09/09/16 09:32 Dose: 100 mls/hr Amikacin Sulfate 250 mg/ (Sodium Chloride) 101 mls @ 100.609 mls/hr IVPB MWF [facility] Last Admin: 09/09/16 09:28 Dose: 100.609 mls/hr Insulin Detemir (Levemir) 28 units SC [facility] Last Admin: 09/09/16 21:11 Dose: 28 u Insulin Human Lispro (Humalog) 8 units SC AC [facility] Last Admin: 09/09/16 16:48 Dose: 8 units Lidocaine (Lidoderm) 1 ea TD DAILY [facility] Last Admin: 09/09/16 09:31 Dose: 1 ea Medroxyprogesterone Acetate (Provera) 10 mg PO DAILY [facility] Stop: 09/17/16 09:01 Last Admin: 09/09/16 09:34 Dose: 10 mg Nystatin (Mycostatin Oint) 1 applic TOP TID [facility] Last Admin: 09/09/16 16:49 Dose: 1 applic Ondansetron HCl (Zofran Inj) 4 mg IVP Q6 PRN PRN Reason: Nausea/Vomiting Last Admin: 09/02/16 12:11 Dose: 4 mg Pantoprazole Sodium (Protonix Ec Tab) 40 mg PO DAILY [facility] Last Admin: 09/09/16 09:34 Dose: 40 mg Sevelamer HCl (Renagel) 1,600 mg PO TID [facility] Last Admin: 09/09/16 16:50 Dose: 1,600 mg Topiramate (Topamax) 50 mg PO BID [facility] Last Admin: 09/09/16 16:51 Dose: 50 mg Vitamin B Complex/Vit C/Folic Acid (Nephro-Ajay) 1 tab PO DAILY [facility] Last Admin: 09/09/16 09:33 Dose: 1 tab - Labs Labs: 09/09/16 13:45 09/09/16 13:45 PT 16.5 SECONDS (9.6-11.2) H 08/28/16 16:11 INR 1.59 (0.92-1.08) H 08/28/16 16:11 APTT 38.7 SECONDS (23.3-32.5) H 08/28/16 16:11 - Constitutional Appears: No Acute Distress, Chronically Ill - Extremities Exam Additional comments: Right lower extremity exam: VASC- DP/PT pulses non-palpable, capillary refill < 5 sec to digits x 5, moderate 1+ pitting edema noted to anterior aspect of leg and dorsum of foot. Callor localized to right leg terminating distal to ankel joint absent erythema. NEURO-gross pedal sensation is diminished DERM- Superficial dry eschar noted to plantar aspect of heel, appears dry absent drainage on compression, purulence, increased warmth, no local or ascending erythema, no acute signs infection. ORTHO- Mild tenderness noted to distal posterior and lateral legs today, severe varus deformity with dislocation of ankle noted. Pedal muscle strength of 4 major pedal muscle groups is: 4/5 for posterior group and 3/5 for anterior, lateral, and medial muscle groups. - Neurological Exam Neurological Exam: Alert, Awake, Oriented x3 - Psychiatric Exam Psychiatric exam: Normal Affect, Normal Mood. absent: Anxious Assessment and Plan - Assessment and Plan (Free Text) Assessment: 46 yo female patient w/ pmhx of HTN, ESRD (on dialysis), coagulopathy, DM, charcot right foot PVD w/ stable dry eschar of right heel. Plan: -Pt S&E at bedside -Discussed plan w/ Dr. Pruett -Chart, labs, vitals reviewed: afebrile, WBC 13k -Dressing changed with wet to dry DSD, multipodus boot reapplied -c/w IV abx per ID -Discussed with patient current conservative treatment plan with abx. Discussed if limb is at all threatened surgical intervention to lower extremities would be a more urgent treatment option. -Due to the results of 1) bone scan findings consistent with cellulitis, no evidence of acute OM & 2) MRI- no evidence of acute OM. podiatry opinion is that no acute or chronic osteomyelits is indicated that this time. As such the limb is not in immediate treat to life and pt is responding to antibiotics. Podiatry service not recommending surgical intervention at this time as patient 5 year survival rate is poor compounded compounded with potential mental impact on quality of life to be suffered s/p bilateral below knee amputations. -Will continue to follow while patient remains in house
[2016-09-10] MEDS: Insulin Lispro (humaLOG) 100 Units/ml Inj SC SCH ×3 (07:42→16:30)
[2016-09-10] MEDS: Hydrocortisone 2.5% (Rectal) CREAM PR SCH ×2 (08:23→16:29)
[2016-09-10] MEDS: Lidocaine 5% Patch TD SCH (08:27)
[2016-09-10] MEDS: Meropenem 500 MG in Sodium Chloride 0.9% 100 ML IVPB SCH (08:29)
[2016-09-10] MEDS: Multivitamin Vitamin B Complex (Nephro-Vite) Tab PO SCH (08:30)
[2016-09-10] MEDS: Nystatin Ointment TOP SCH ×2 (08:30→16:31)
[2016-09-10] MEDS: Pantoprazole 40 mg EC Tab PO SCH (08:30)
[2016-09-10] MEDS: Santyl Collagenase OINTMENT TOP SCH (08:31)
[2016-09-10] MEDS: Linezolid 600 mg in D5W 300 ml 300 ML IVPB SCH ×2 (08:33→21:33)
--- NOTE | 2016-09-10 09:26 | CP.PCM.PN ---
Subjective - Date & Time of Evaluation Date of Evaluation: 09/10/16 Time of Evaluation: 09:25 - Subjective Subjective: She is interactive, complaining of tolerated pain in the Right LE. No Seizures. Objective - Vital Signs/Intake and Output Vital Signs (last 24 hours): Temp Pulse Resp BP Pulse Ox 98.5 F 113 H 26 H 102/74 100 09/10/16 07:24 09/10/16 07:24 09/10/16 07:24 09/10/16 07:24 09/10/16 07:24 Intake and Output: 09/10/16 09/10/16 06:59 18:59 Intake Total 255 150 Output Total 3000 0 Balance -2745 150 - Medications Medications: Current Medications Acetaminophen (Tylenol 325mg Tab) 650 mg PO Q4 PRN PRN Reason: Fever >100.4 F Last Admin: 08/28/16 15:23 Dose: 650 mg Acetaminophen (Tylenol 325mg Tab) 650 mg PO Q4 PRN PRN Reason: Pain, moderate (4-7) Last Admin: 09/03/16 03:33 Dose: 650 mg Acetylcysteine (Mucomyst 10% 4ml) 2 ml IH RBID [facility] Last Admin: 09/10/16 07:21 Dose: 2 ml Albuterol Sulfate (Albuterol 0.083% Inhal Barbie (2.5 Mg/3 Ml) Ud) 2.5 mg INH RBID [facility] Last Admin: 09/10/16 07:21 Dose: 2.5 mg Albuterol/Ipratropium (Duoneb 3 Mg/0.5 Mg (3 Ml) Ud) 3 ml INH RQ4 PRN PRN Reason: Shortness of Breath Last Admin: 09/05/16 02:15 Dose: 3 ml Apixaban (Eliquis) 5 mg PO BID [facility] PRN Reason: Protocol Last Admin: 09/10/16 08:28 Dose: 5 mg Aspirin (Ecotrin) 81 mg PO DAILY [facility] Last Admin: 09/10/16 08:28 Dose: 81 mg Atorvastatin Calcium (Lipitor) 40 mg PO DAILY [facility] Last Admin: 09/10/16 08:29 Dose: 40 mg Benzonatate (Tessalon Perles) 200 mg PO TID PRN PRN Reason: Cough Last Admin: 09/07/16 22:00 Dose: 200 mg Cinacalcet (Sensipar) 30 mg PO DAILY [facility] Last Admin: 09/10/16 08:31 Dose: 30 mg Collagenase (Santyl) 1 applic TOP DAILY [facility] Last Admin: 09/10/16 08:31 Dose: 1 applic Docusate Sodium (Colace) 200 mg PO BID [facility] Last Admin: 09/10/16 08:23 Dose: Not Given Epoetin Tha (Procrit) 20,000 unit IV MWF [facility] Last Admin: 09/06/16 21:15 Dose: 20,000 unit Guaifenesin/Codeine Phosphate (Robitussin W/Codeine) 10 ml PO Q4 PRN PRN Reason: Cough Last Admin: 09/10/16 09:01 Dose: 10 ml Hydrocortisone (Anusol-Hc) 1 applic [place] BID [facility] Last Admin: 09/10/16 08:23 Dose: 1 applic Piperacillin Sod/Tazobactam (Sod 2.25 gm/ Sodium Chloride) 100 mls @ 100 mls/ hr IVPB Q12 [facility] Last Admin: 09/10/16 08:32 Dose: 100 mls/hr Linezolid (Zyvox 600mg/300ml D5w) 300 mls @ 300 mls/hr IVPB Q12 [facility] Last Admin: 09/10/16 08:33 Dose: 300 mls/hr Meropenem 500 mg/ Sodium (Chloride) 100 mls @ 100 mls/hr IVPB DAILY [facility] Last Admin: 09/10/16 08:29 Dose: 100 mls/hr Amikacin Sulfate 250 mg/ (Sodium Chloride) 101 mls @ 100.609 mls/hr IVPB MWF [facility] Last Admin: 09/09/16 09:28 Dose: 100.609 mls/hr Insulin Detemir (Levemir) 28 units SC HS [facility] Last Admin: 09/09/16 21:11 Dose: 28 u Insulin Human Lispro (Humalog) 8 units SC AC [facility] Last Admin: 09/10/16 07:42 Dose: 8 units Lidocaine (Lidoderm) 1 ea TD DAILY [facility] Last Admin: 09/10/16 08:27 Dose: 1 ea Medroxyprogesterone Acetate (Provera) 10 mg PO DAILY [facility] Stop: 09/17/16 09:01 Last Admin: 09/10/16 08:30 Dose: 10 mg Nystatin (Mycostatin Oint) 1 applic TOP TID [facility] Last Admin: 09/10/16 08:30 Dose: 1 applic Ondansetron HCl (Zofran Inj) 4 mg IVP Q6 PRN PRN Reason: Nausea/Vomiting Last Admin: 09/02/16 12:11 Dose: 4 mg Pantoprazole Sodium (Protonix Ec Tab) 40 mg PO DAILY [facility] Last Admin: 09/10/16 08:30 Dose: 40 mg Sevelamer HCl (Renagel) 1,600 mg PO TID [facility] Last Admin: 09/10/16 08:31 Dose: 1,600 mg Topiramate (Topamax) 50 mg PO BID [facility] Last Admin: 09/10/16 08:32 Dose: 50 mg Vitamin B Complex/Vit C/Folic Acid (Nephro-Ajay) 1 tab PO DAILY [facility] Last Admin: 09/10/16 08:30 Dose: 1 tab - Labs Labs: 09/09/16 13:45 09/09/16 13:45 PT 16.5 SECONDS (9.6-11.2) H 08/28/16 16:11 INR 1.59 (0.92-1.08) H 08/28/16 16:11 APTT 38.7 SECONDS (23.3-32.5) H 08/28/16 16:11 Assessment and Plan (1) Diabetes Status: Chronic (2) ESRD (end stage renal disease) Status: Chronic (3) Cellulitis of leg Status: Acute (4) Hyperlipidemia Status: Acute (5) Back pain Status: Acute (6) Bacteremia due to Gram-negative bacteria Status: Acute (7) Diabetes mellitus type 2 with peripheral artery disease Status: Acute (8) PVD (peripheral vascular disease) Status: Acute
--- NOTE | 2016-09-10 10:54 | CP.PCM.PN ---
Subjective - Date & Time of Evaluation Date of Evaluation: 09/10/16 Time of Evaluation: 10:49 - Subjective Subjective: PRIMARY MEDICAL ATTENDING PROGRESS NOTE: Day # 14 post-septic shock secondary to disseminated bacteremia secondary to infected R foot ulcer. She continues on 4 antibiotics, and is currently afebrile with repeat blood cultures negative. However, the right lower leg is still warm (in the setting of poor circulation) and very tender to touch. The wbc is still elevated (with 82 % polys and toxic granulation) as is the alkaline phosphatase. The MRI of the foot does not definitively indicate osteomyelitis, but there is definite myositis and tendonitis involving the right lower leg. The bone scan was equivocal also showing increased uptake in the lower tib/fib/talar regions without compelling evidence for osteomyelitis. The CT angiogram showed (among many other vascular abnormalities) diminished circulation in the RLE, especially the foot. Dr. Lemon (ID) has expressed the view that there is likely osteomyelitis, and in any case the heel wound (which has been present since 2016 despite wound care center treatments)- that wound will continue to be a source of infection - compromising the Permacath needed for hemodialysis. Were this staph aureus bacteremia, it would be necessary to remove the Permacath. Since the infection is due to E. Coli, it should be possible to sterilize the Permacath - if the source of infection is eliminated. Dr. Hou (podiatry) does not believe this is osteomyelitis and wants to preserve the foot in spite of the heel wound, which he is describing as a dry eschar. He believes the foot/ankle in the boot/cast/brace that she has been using is needed in order for her to pivot for transfers. She currently uses a motorized wheelchair and can take a few steps with a walker. Dr. Brian Pastrana (general surgery) fears that amputation in the face of such poor circulation may not result in healing. He also fears that because of her diabetic, cardiac, and coagulopathy problems she is at high risk of dying during or right after surgery. Dr. Alta Guadrarama (nephrology) agrees with Dr. Pastrana. Dr. Gallito Shepard (wood turning lathe operator) and Dr. Richard Ambrose (vacuum pan tender, who has been managing the diabetes) agree with Dr. Lemon that amputation is the better course. Dr. Richard Shepard has cleared her for surgery. Dr. Flores has been treating the patient for pneumonia, which has been improving. I am reaching out to Dr. Sidney Brown, plastic surgeon, who has treated the patient extensively in the past for a potential consultation. I have recultured the right heel. I have explained to the patient that her many physicians are in the process of deciding the best course and that for now we are focusing on reducing the right leg inflammation and assuring that the antibiotics we are using are providing adequate therapy to eliminate infection. I have told her that should amputation be necessary (and she is agreeable to this) we want to be sure it is done at a time and in a manner that will assure a good result. Objective - Vital Signs/Intake and Output Vital Signs (last 24 hours): Temp Pulse Resp BP Pulse Ox 98.5 F 113 H 26 H 102/74 100 09/10/16 07:24 09/10/16 07:24 09/10/16 07:24 09/10/16 07:24 09/10/16 07:24 Intake and Output: 09/10/16 09/10/16 06:59 18:59 Intake Total 255 150 Output Total 3000 0 Balance -2745 150 - Medications Medications: Current Medications Acetaminophen (Tylenol 325mg Tab) 650 mg PO Q4 PRN PRN Reason: Fever >100.4 F Last Admin: 08/28/16 15:23 Dose: 650 mg Acetaminophen (Tylenol 325mg Tab) 650 mg PO Q4 PRN PRN Reason: Pain, moderate (4-7) Last Admin: 09/03/16 03:33 Dose: 650 mg Albuterol/Ipratropium (Duoneb 3 Mg/0.5 Mg (3 Ml) Ud) 3 ml INH RQ4 PRN PRN Reason: Shortness of Breath Last Admin: 09/05/16 02:15 Dose: 3 ml Apixaban (Eliquis) 5 mg PO BID [facility] PRN Reason: Protocol Last Admin: 09/10/16 08:28 Dose: 5 mg Aspirin (Ecotrin) 81 mg PO DAILY [facility] Last Admin: 09/10/16 08:28 Dose: 81 mg Atorvastatin Calcium (Lipitor) 40 mg PO DAILY [facility] Last Admin: 09/10/16 08:29 Dose: 40 mg Benzonatate (Tessalon Perles) 200 mg PO TID PRN PRN Reason: Cough Last Admin: 09/07/16 22:00 Dose: 200 mg Cinacalcet (Sensipar) 30 mg PO DAILY [facility] Last Admin: 09/10/16 08:31 Dose: 30 mg Epoetin Tha (Procrit) 20,000 unit IV MWF [facility] Last Admin: 09/06/16 21:15 Dose: 20,000 unit Guaifenesin/Codeine Phosphate (Robitussin W/Codeine) 10 ml PO Q4 PRN PRN Reason: Cough Last Admin: 09/10/16 09:01 Dose: 10 ml Hydrocortisone (Anusol-Hc) 1 applic [place] BID [facility] Last Admin: 09/10/16 08:23 Dose: 1 applic Piperacillin Sod/Tazobactam (Sod 2.25 gm/ Sodium Chloride) 100 mls @ 100 mls/ hr IVPB Q12 [facility] Last Admin: 09/10/16 08:32 Dose: 100 mls/hr Linezolid (Zyvox 600mg/300ml D5w) 300 mls @ 300 mls/hr IVPB Q12 [facility] Last Admin: 09/10/16 08:33 Dose: 300 mls/hr Meropenem 500 mg/ Sodium (Chloride) 100 mls @ 100 mls/hr IVPB DAILY [facility] Last Admin: 09/10/16 08:29 Dose: 100 mls/hr Amikacin Sulfate 250 mg/ (Sodium Chloride) 101 mls @ 100.609 mls/hr IVPB MWF [facility] Last Admin: 09/09/16 09:28 Dose: 100.609 mls/hr Insulin Detemir (Levemir) 28 units SC HS [facility] Last Admin: 09/09/16 21:11 Dose: 28 u Insulin Human Lispro (Humalog) 8 units SC AC [facility] Last Admin: 09/10/16 07:42 Dose: 8 units Lidocaine (Lidoderm) 1 ea TD DAILY [facility] Last Admin: 09/10/16 08:27 Dose: 1 ea Medroxyprogesterone Acetate (Provera) 10 mg PO DAILY [facility] Stop: 09/17/16 09:01 Last Admin: 09/10/16 08:30 Dose: 10 mg Nystatin (Mycostatin Oint) 1 applic TOP TID [facility] Last Admin: 09/10/16 08:30 Dose: 1 applic Ondansetron HCl (Zofran Inj) 4 mg IVP Q6 PRN PRN Reason: Nausea/Vomiting Last Admin: 09/02/16 12:11 Dose: 4 mg Pantoprazole Sodium (Protonix Ec Tab) 40 mg PO DAILY [facility] Last Admin: 09/10/16 08:30 Dose: 40 mg Sevelamer HCl (Renagel) 1,600 mg PO TID [facility] Last Admin: 09/10/16 08:31 Dose: 1,600 mg Topiramate (Topamax) 50 mg PO BID [facility] Last Admin: 09/10/16 08:32 Dose: 50 mg Vitamin B Complex/Vit C/Folic Acid (Nephro-Ajay) 1 tab PO DAILY [facility] Last Admin: 09/10/16 08:30 Dose: 1 tab - Labs Labs: 09/09/16 13:45 09/09/16 13:45 PT 16.5 SECONDS (9.6-11.2) H 08/28/16 16:11 INR 1.59 (0.92-1.08) H 08/28/16 16:11 APTT 38.7 SECONDS (23.3-32.5) H 08/28/16 16:11 Laboratory Results - last 72 hr 09/07/16 09/08/16 09/08/16 11:25 06:00 06:00 WBC 14.5 H RBC 3.02 L Hgb 8.8 L Hct 27.8 L MCV 91.9 MCH 29.2 MCHC 31.8 L RDW 21.0 H Plt Count 270 MPV 9.1 Neut % (Auto) 79.0 H Lymph % (Auto) 9.9 L Greer % (Auto) 9.2 Eos % (Auto) 1.2 Baso % (Auto) 0.7 Neut # 11.4 H Lymph # 1.4 Greer # 1.3 H Eos # 0.2 Baso # 0.1 Neutrophils % (Manual) Lymphocytes % (Manual) Monocytes % (Manual) Eosinophils % (Manual) Basophils % (Manual) Toxic Granulation Platelet Estimate Large Platelets Hypochromasia (manual) Anisocytosis (manual) Schistocytes Sodium 137 Potassium 3.7 Chloride 101 Carbon Dioxide 25 Anion Gap 15 BUN 23 H Creatinine 6.1 H Est GFR ( Amer) 9 Est GFR (Non-Af Amer) 7 POC Glucose (mg/dL) 153 H Random Glucose 224 H Calcium 8.4 Phosphorus Magnesium Total Bilirubin 0.5 AST 31 ALT 16 Alkaline Phosphatase 168 H Total Protein 7.0 Albumin 2.8 L Globulin 4.3 H Albumin/Globulin Ratio 0.7 L 09/08/16 09/08/16 09/08/16 06:12 10:55 17:59 WBC RBC Hgb Hct MCV MCH MCHC RDW Plt Count MPV Neut % (Auto) Lymph % (Auto) Greer % (Auto) Eos % (Auto) Baso % (Auto) Neut # Lymph # Greer # Eos # Baso # Neutrophils % (Manual) Lymphocytes % (Manual) Monocytes % (Manual) Eosinophils % (Manual) Basophils % (Manual) Toxic Granulation Platelet Estimate Large Platelets Hypochromasia (manual) Anisocytosis (manual) Schistocytes Sodium Potassium Chloride Carbon Dioxide Anion Gap BUN Creatinine Est GFR ( Amer) Est GFR (Non-Af Amer) POC Glucose (mg/dL) 155 H 248 H 268 H Random Glucose Calcium Phosphorus Magnesium Total Bilirubin AST ALT Alkaline Phosphatase Total Protein Albumin Globulin Albumin/Globulin Ratio 09/08/16 09/09/16 09/09/16 23:27 05:20 13:45 WBC 13.0 H RBC 3.18 L Hgb 9.1 L Hct 29.2 L MCV 91.8 MCH 28.7 MCHC 31.3 L RDW 21.0 H Plt Count 290 MPV 8.7 Neut % (Auto) 82.8 H Lymph % (Auto) 7.4 L Greer % (Auto) 7.1 Eos % (Auto) 1.8 Baso % (Auto) 0.9 Neut # 10.8 H Lymph # 1.0 Greer # 0.9 H Eos # 0.2 Baso # 0.1 Neutrophils % (Manual) 85 H Lymphocytes % (Manual) 8 L Monocytes % (Manual) 5 Eosinophils % (Manual) 1 Basophils % (Manual) 1 Toxic Granulation Present Platelet Estimate Normal Large Platelets Present Hypochromasia (manual) Moderate Anisocytosis (manual) Marked Schistocytes Slight Sodium Potassium Chloride Carbon Dioxide Anion Gap BUN Creatinine Est GFR ( Amer) Est GFR (Non-Af Amer) POC Glucose (mg/dL) 195 H 118 H Random Glucose Calcium Phosphorus Magnesium Total Bilirubin AST ALT Alkaline Phosphatase Total Protein Albumin Globulin Albumin/Globulin Ratio 09/09/16 09/09/16 09/10/16 13:45 21:45 05:01 WBC RBC Hgb Hct MCV MCH MCHC RDW Plt Count MPV Neut % (Auto) Lymph % (Auto) Greer % (Auto) Eos % (Auto) Baso % (Auto) Neut # Lymph # Greer # Eos # Baso # Neutrophils % (Manual) Lymphocytes % (Manual) Monocytes % (Manual) Eosinophils % (Manual) Basophils % (Manual) Toxic Granulation Platelet Estimate Large Platelets Hypochromasia (manual) Anisocytosis (manual) Schistocytes Sodium 138 Potassium 3.9 Chloride 102 Carbon Dioxide 24 Anion Gap 16 BUN 33 H Creatinine 8.0 H* D Est GFR ( Amer) 7 Est GFR (Non-Af Amer) 5 POC Glucose (mg/dL) 150 H 113 H Random Glucose 107 H Calcium 8.5 Phosphorus 5.0 H Magnesium 2.3 Total Bilirubin 0.8 AST 30 ALT 11 Alkaline Phosphatase 153 H Total Protein 7.6 Albumin 2.9 L Globulin 4.7 H Albumin/Globulin Ratio 0.6 L - Constitutional Appears: No Acute Distress - Head Exam Head Exam: NORMAL INSPECTION - Eye Exam Eye Exam: Normal appearance - ENT Exam ENT Exam: Mucous Membranes Moist - Neck Exam Neck Exam: Normal Inspection Additional comments: Right subclavian Permacath intact. - Respiratory Exam Respiratory Exam: Clear to Ausculation Bilateral - Cardiovascular Exam Cardiovascular Exam: REGULAR RHYTHM, +S1, +S2 - GI/Abdominal Exam GI & Abdominal Exam: Soft, Normal Bowel Sounds - Extremities Exam Additional comments: Right heel has a round area of devitalized tissues with a rim of fibrotic yellow tissue (which is the area swabbed for culture today). The underlying tissue is boggy. The ankle is floppy. The lower tibia/fibular area is sl. edematous, tense, too warm, and very tender (she cries out in pain when the lower leg is touched). The left residual BK limb is warm and clear. The R upper arm PICC line is intact. - Back Exam Back Exam: NORMAL INSPECTION - Neurological Exam Neurological Exam: Alert, Awake, CN II-XII Intact, Oriented x3 - Psychiatric Exam Psychiatric exam: Normal Affect, Normal Mood - Skin Additional comments: see extremities. Dressings beneath breasts intact. Assessment and Plan (1) ESRD (end stage renal disease) on dialysis Assessment & Plan: SEE SUBJECTIVE Status: Chronic (2) DM type 2 (diabetes mellitus, type 2) Assessment & Plan: SEE SUBJECTIVE Status: Chronic (3) Coagulopathy Assessment & Plan: Continue Eliquis and aspirin. Status: Chronic (4) Peripheral arterial occlusive disease Assessment & Plan: SEE SUBJECTIVE Status: Chronic (5) Ulcer of right heel Assessment & Plan: SEE SUBJECTIVE Status: Resolved (6) SIRS (systemic inflammatory response syndrome) Assessment & Plan: SEE SUBJECTIVE Status: Acute (7) Pneumonia Assessment & Plan: SEE SUBJECTIVE Status: Acute (8) Menorrhagia Assessment & Plan: Continue Provera to complete a 10 day course. Status: Acute
--- NOTE | 2016-09-10 10:54 | CP.PCM.PN ---
Subjective - Date & Time of Evaluation Date of Evaluation: 09/10/16 Time of Evaluation: 10:54 - Subjective Subjective: Patient is awake no new events reported overnight Vital sign appears to be stable temperature is okay Physical exam Chest pain or hours Heart no rubs Abdomen soft Extremity no significant changes as has been described MRI noted Impression and plan Status post septic shock improving and doing much better. Receiving antibiotics Still discussion about the amputation? Discussed with the primary care physician Dr. Ellington End stage renal disease continue hemodialysis Friday. Objective - Vital Signs/Intake and Output Vital Signs (last 24 hours): Temp Pulse Resp BP Pulse Ox 98.5 F 113 H 26 H 102/74 100 09/10/16 07:24 09/10/16 07:24 09/10/16 07:24 09/10/16 07:24 09/10/16 07:24 Intake and Output: 09/10/16 09/10/16 06:59 18:59 Intake Total 255 150 Output Total 3000 0 Balance -2745 150 - Medications Medications: Current Medications Acetaminophen (Tylenol 325mg Tab) 650 mg PO Q4 PRN PRN Reason: Fever >100.4 F Last Admin: 08/28/16 15:23 Dose: 650 mg Acetaminophen (Tylenol 325mg Tab) 650 mg PO Q4 PRN PRN Reason: Pain, moderate (4-7) Last Admin: 09/03/16 03:33 Dose: 650 mg Albuterol/Ipratropium (Duoneb 3 Mg/0.5 Mg (3 Ml) Ud) 3 ml INH RQ4 PRN PRN Reason: Shortness of Breath Last Admin: 09/05/16 02:15 Dose: 3 ml Apixaban (Eliquis) 5 mg PO BID [facility] PRN Reason: Protocol Last Admin: 09/10/16 08:28 Dose: 5 mg Aspirin (Ecotrin) 81 mg PO DAILY [facility] Last Admin: 09/10/16 08:28 Dose: 81 mg Atorvastatin Calcium (Lipitor) 40 mg PO DAILY [facility] Last Admin: 09/10/16 08:29 Dose: 40 mg Benzonatate (Tessalon Perles) 200 mg PO TID PRN PRN Reason: Cough Last Admin: 09/07/16 22:00 Dose: 200 mg Cinacalcet (Sensipar) 30 mg PO DAILY [facility] Last Admin: 09/10/16 08:31 Dose: 30 mg Epoetin Tha (Procrit) 20,000 unit IV MWF [facility] Last Admin: 09/06/16 21:15 Dose: 20,000 unit Guaifenesin/Codeine Phosphate (Robitussin W/Codeine) 10 ml PO Q4 PRN PRN Reason: Cough Last Admin: 09/10/16 09:01 Dose: 10 ml Hydrocortisone (Anusol-Hc) 1 applic [place] BID [facility] Last Admin: 09/10/16 08:23 Dose: 1 applic Piperacillin Sod/Tazobactam (Sod 2.25 gm/ Sodium Chloride) 100 mls @ 100 mls/ hr IVPB Q12 [facility] Last Admin: 09/10/16 08:32 Dose: 100 mls/hr Linezolid (Zyvox 600mg/300ml D5w) 300 mls @ 300 mls/hr IVPB Q12 [facility] Last Admin: 09/10/16 08:33 Dose: 300 mls/hr Meropenem 500 mg/ Sodium (Chloride) 100 mls @ 100 mls/hr IVPB DAILY [facility] Last Admin: 09/10/16 08:29 Dose: 100 mls/hr Amikacin Sulfate 250 mg/ (Sodium Chloride) 101 mls @ 100.609 mls/hr IVPB MWF [facility] Last Admin: 09/09/16 09:28 Dose: 100.609 mls/hr Insulin Detemir (Levemir) 28 units SC HS [facility] Last Admin: 09/09/16 21:11 Dose: 28 u Insulin Human Lispro (Humalog) 8 units SC AC [facility] Last Admin: 09/10/16 07:42 Dose: 8 units Lidocaine (Lidoderm) 1 ea TD DAILY [facility] Last Admin: 09/10/16 08:27 Dose: 1 ea Medroxyprogesterone Acetate (Provera) 10 mg PO DAILY [facility] Stop: 09/17/16 09:01 Last Admin: 09/10/16 08:30 Dose: 10 mg Nystatin (Mycostatin Oint) 1 applic TOP TID [facility] Last Admin: 09/10/16 08:30 Dose: 1 applic Ondansetron HCl (Zofran Inj) 4 mg IVP Q6 PRN PRN Reason: Nausea/Vomiting Last Admin: 09/02/16 12:11 Dose: 4 mg Pantoprazole Sodium (Protonix Ec Tab) 40 mg PO DAILY [facility] Last Admin: 09/10/16 08:30 Dose: 40 mg Sevelamer HCl (Renagel) 1,600 mg PO TID [facility] Last Admin: 09/10/16 08:31 Dose: 1,600 mg Topiramate (Topamax) 50 mg PO BID [facility] Last Admin: 09/10/16 08:32 Dose: 50 mg Vitamin B Complex/Vit C/Folic Acid (Nephro-Ajay) 1 tab PO DAILY [facility] Last Admin: 09/10/16 08:30 Dose: 1 tab - Labs Labs: 09/09/16 13:45 09/09/16 13:45 PT 16.5 SECONDS (9.6-11.2) H 08/28/16 16:11 INR 1.59 (0.92-1.08) H 08/28/16 16:11 APTT 38.7 SECONDS (23.3-32.5) H 08/28/16 16:11 Assessment and Plan (1) ESRD (end stage renal disease) Status: Chronic (2) Cellulitis of leg Status: Acute
--- NOTE | 2016-09-10 11:28 | CP.PCM.PN ---
Subjective - Date & Time of Evaluation Date of Evaluation: 09/10/16 Time of Evaluation: 11:26 - Subjective Subjective: Still with some residual cough, but much improved. Cough is controlled with codeine antitussive. Objective - Vital Signs/Intake and Output Vital Signs (last 24 hours): Temp Pulse Resp BP Pulse Ox 98.5 F 113 H 26 H 102/74 100 09/10/16 07:24 09/10/16 07:24 09/10/16 07:24 09/10/16 07:24 09/10/16 07:24 Intake and Output: 09/09/16 09/10/16 23:59 11:59 Intake Total 545 260 Output Total 3000 Balance 545 -8690 - Medications Medications: Current Medications Acetaminophen (Tylenol 325mg Tab) 650 mg PO Q4 PRN PRN Reason: Fever >100.4 F Last Admin: 08/28/16 15:23 Dose: 650 mg Acetaminophen (Tylenol 325mg Tab) 650 mg PO Q4 PRN PRN Reason: Pain, moderate (4-7) Last Admin: 09/03/16 03:33 Dose: 650 mg Albuterol/Ipratropium (Duoneb 3 Mg/0.5 Mg (3 Ml) Ud) 3 ml INH RQ4 PRN PRN Reason: Shortness of Breath Last Admin: 09/05/16 02:15 Dose: 3 ml Apixaban (Eliquis) 5 mg PO BID [facility] PRN Reason: Protocol Last Admin: 09/10/16 08:28 Dose: 5 mg Aspirin (Ecotrin) 81 mg PO DAILY [facility] Last Admin: 09/10/16 08:28 Dose: 81 mg Atorvastatin Calcium (Lipitor) 40 mg PO DAILY [facility] Last Admin: 09/10/16 08:29 Dose: 40 mg Benzonatate (Tessalon Perles) 200 mg PO TID PRN PRN Reason: Cough Last Admin: 09/07/16 22:00 Dose: 200 mg Cinacalcet (Sensipar) 30 mg PO DAILY [facility] Last Admin: 09/10/16 08:31 Dose: 30 mg Epoetin Tha (Procrit) 20,000 unit IV MWF [facility] Last Admin: 09/06/16 21:15 Dose: 20,000 unit Guaifenesin/Codeine Phosphate (Robitussin W/Codeine) 10 ml PO Q4 PRN PRN Reason: Cough Last Admin: 09/10/16 09:01 Dose: 10 ml Hydrocortisone (Anusol-Hc) 1 applic [place] BID [facility] Last Admin: 09/10/16 08:23 Dose: 1 applic Piperacillin Sod/Tazobactam (Sod 2.25 gm/ Sodium Chloride) 100 mls @ 100 mls/ hr IVPB Q12 [facility] Last Admin: 09/10/16 08:32 Dose: 100 mls/hr Linezolid (Zyvox 600mg/300ml D5w) 300 mls @ 300 mls/hr IVPB Q12 [facility] Last Admin: 09/10/16 08:33 Dose: 300 mls/hr Meropenem 500 mg/ Sodium (Chloride) 100 mls @ 100 mls/hr IVPB DAILY [facility] Last Admin: 09/10/16 08:29 Dose: 100 mls/hr Amikacin Sulfate 250 mg/ (Sodium Chloride) 101 mls @ 100.609 mls/hr IVPB MWF [facility] Last Admin: 09/09/16 09:28 Dose: 100.609 mls/hr Insulin Detemir (Levemir) 28 units SC HS [facility] Last Admin: 09/09/16 21:11 Dose: 28 u Insulin Human Lispro (Humalog) 8 units SC AC [facility] Last Admin: 09/10/16 11:06 Dose: 8 units Lidocaine (Lidoderm) 1 ea TD DAILY [facility] Last Admin: 09/10/16 08:27 Dose: 1 ea Medroxyprogesterone Acetate (Provera) 10 mg PO DAILY [facility] Stop: 09/17/16 09:01 Last Admin: 09/10/16 08:30 Dose: 10 mg Nystatin (Mycostatin Oint) 1 applic TOP TID [facility] Last Admin: 09/10/16 08:30 Dose: 1 applic Ondansetron HCl (Zofran Inj) 4 mg IVP Q6 PRN PRN Reason: Nausea/Vomiting Last Admin: 09/02/16 12:11 Dose: 4 mg Pantoprazole Sodium (Protonix Ec Tab) 40 mg PO DAILY [facility] Last Admin: 09/10/16 08:30 Dose: 40 mg Sevelamer HCl (Renagel) 1,600 mg PO TID [facility] Last Admin: 09/10/16 08:31 Dose: 1,600 mg Topiramate (Topamax) 50 mg PO BID [facility] Last Admin: 09/10/16 08:32 Dose: 50 mg Vitamin B Complex/Vit C/Folic Acid (Nephro-Ajay) 1 tab PO DAILY [facility] Last Admin: 09/10/16 08:30 Dose: 1 tab - Labs Labs: 09/09/16 13:45 09/09/16 13:45 PT 16.5 SECONDS (9.6-11.2) H 08/28/16 16:11 INR 1.59 (0.92-1.08) H 08/28/16 16:11 APTT 38.7 SECONDS (23.3-32.5) H 08/28/16 16:11
--- NOTE | 2016-09-10 12:19 | PN ---
DATE: 09/10/2016 CRITICAL CARE PROGRESS NOTE LOCATION: The patient in room 421. TIME SPENT: 35 minutes. The patient is seen and evaluated at the bedside. Case was discussed in a.m. rounds with multidiscip linary team, also with hematology area development consultant. Events since admission reviewed. Overnight uneventful . Remained normotensive, afebrile. Telemetry is sinus rhythm. This morning, alert, awake, follows commands appropriately, complaining of mild nonproductive cough. Denies headache, mild shortness of breath. No chest pain or palpitation. No abdominal discomfort. Pain on right lower extremity impro yan. The patient is on Multi-Podus boot intact to right heel. PHYSICAL EXAMINATION: VITAL SIGNS: Temperature 99.4, heart rate 114-116 regular, blood pressure 102-114/54-74, mean arteri al pressure 74/83, respiratory rate 20-26 thoracoabdominal, saturating 100% on room air. Intake 1295 , output 3000, negative 1705. Weight not recorded. Had 1 bowel movement. HEAD, EYES, EARS, NOSE, AND THROAT: Pupils are equal, round, and reactive. Conjunctivae are pale. Sclerae are white. NECK: Short, reduced oropharyngeal airspace. Oral mucosa moist. CHEST: Minimal bilateral rhonchi, right subcutaneous dialysis catheter, and PICC line on the right i ntact. HEART: Rhythm regular. S1, S2 rapid. ABDOMEN: Bowel sounds are present, soft, nontender. BACK: With sacral decubitus ulcer. EXTREMITIES: Upper extremity - status post amputation third finger on the right hand, status post am putation second, third, and fourth digits on the left hand, radial pulse present, but weak. Lower ex tremity - left below-knee amputation, right foot in a Multi Podus cast. Dorsalis pedis reduced in in tensity. NEUROLOGIC: No cranial nerve deficit. Alert and oriented to name, place, and time. PSYCHIATRIC: Positive for alert, oriented x 3. Has good insight into her medical issues. CURRENT MEDICATIONS: Include Tylenol 650 p.o. q. 4 p.r.n. for fever more than 100.4, DuoNeb 3 mL q. 4 p.r.n., amikacin 250 mg IV push Friday, Friday, Friday with dialysis. Eliquis 5 mg p.o. twice d aily, Ecotrin 81 mg p.o. daily, Lipitor 40 mg p.o. daily, Tessalon Perles 200 mg p.o. 3 times daily, Sensipar 30 mg p.o. daily, Procrit subcutaneous once a week, Robitussin with codeine 10 mL p.o. q. 4 p.r.n., hydrocortisone HC 1 application per rectum b.i.d., Levemir 28 units subQ at bedtime, 8 units subQ in the morning, Lidoderm patch daily, Zyvox 600 mg q. 12, (medroxyprogesterone) Provera 10 mg p. o. daily, meropenem 500 mg IV daily, Tessalon Perles 200 mg 3 times a day p.r.n., Zosyn 2.25 grams I V q. 12, Nephro-Ajay 1 tablet daily, Topamax 50 mg p.o. daily. IMPRESSION: A 46-year-old female with end-stage renal disease on hemodialysis 3 times per week, hype rtension, diabetes mellitus type 2, protein C and protein S deficiency, severe peripheral vascular di sease, status post below-knee amputation - left leg, anemia of chronic disease, admitted with right lower extremity cellulitis. Seen by infectious disease consult, on broad-spectrum antibiotics, impro ving clinically. Remains afebrile. Pain less painful. Appreciate PMD recommendation for considerat ion for below-knee amputation as per the CT angiogram, seen by podiatry consult. Appreciate recommen dation note for amputation at this point, evaluation by general surgery pending. Anemia of chronic disease, on Procrit, protein C and protein S deficiency, currently on aspirin, Eliq uis. We will stop Eliquis 24 hours prior to the surgery, as discussed with hematology consult. End-stage renal disease on hemodialysis. Continue dialysis, as per renal consult, on cinacalcet, and Renagel. Diabetes mellitus type 2 on Lantus - basal and short-acting insulin bolus. Continue deep venous thrombosis and gastrointestinal prophylaxis on Eliquis and Protonix. We will follow recommendation by general surgery consult. Consider OT, PT for strengthening. Asthma, stable on current bronchodilator and antibiotics. Refugio Jarrell MD cc: [phone] TT: 09/10/2016 12:18:58 Confirmation # [id number] Dictation # [id number] jn
--- NOTE | 2016-09-10 15:19 | PN ---
DATE: 09/10/2016 ROOM: ICU 421. This is a 46-year-old female with recent right lower extremity cellulitis and possible osteomyelitis and is now undergoing IV antibiotic management also because of negative bacteremia and currently marilynin g followed closely for metabolic management because of recent hyperglycemic accelerations as noted th ereof. Her latest chemistry showed a BUN of 33, sodium 138, potassium 3.9, chloride 102, CO2 of 24, glucose 107, and creatinine 8.0. Her glucose levels have ranged from 113-150 mg/dL today as noted. So, at this time, we will continue the same basal and bolus insulin regimen to allow for dose equilib ration and keep her on the Levemir given as 28 units at bedtime as ordered. We will continue the Hum alog given as 8 units subQ t.i.d. before meals as given. We will titrate incrementally as indicated to optimize metabolic control. We will follow and advise accordingly. Irene Ambrose MD cc: [id number] TT: 09/10/2016 15:19:09 Confirmation # [id number] Dictation # [id number]
--- NOTE | 2016-09-10 18:15 | CP.PCM.PN ---
Subjective - Date & Time of Evaluation Date of Evaluation: 09/10/16 Time of Evaluation: 03:00 - Subjective Subjective: Patient was seen in ICU today with podiatry resident. Patient doing well. As per PMD I did review angiogram and also asked interventional cardiology to also review. His conclusion is that the leg is viable and if necessary in the future the patient could be treated. The heel ulcer is a dry gangrenous Escher at this time, no collection or drainage is present. It is still my contention that this leg is viable, I do understand that the patient does have a unstable charcot ankle, however the patient is able to pivot , and transfer when she wears her [place] walker. Over the past few years we have utilized several devices and all have proven successful in keeping this patient from loosing this leg. I had a detailed conversation with this patient and she does understand that if the leg becomes infected then she will then need an amputation at that point. This patient will be confined to bed or a wheel chair if this leg is amputated, I am quite concerned about her group home physical and mental state if that should happen. We are all aware of survivability rates after bellow the knee amputations. Objective - Vital Signs/Intake and Output Vital Signs (last 24 hours): Temp Pulse Resp BP Pulse Ox 98.3 F 110 H 12 116/67 100 09/10/16 16:00 09/10/16 16:00 09/10/16 16:00 09/10/16 16:00 09/10/16 16:00 Intake and Output: 09/10/16 09/10/16 06:59 18:59 Intake Total 255 1120 Output Total 3000 0 Balance -2745 1120 - Medications Medications: Current Medications Acetaminophen (Tylenol 325mg Tab) 650 mg PO Q4 PRN PRN Reason: Fever >100.4 F Last Admin: 08/28/16 15:23 Dose: 650 mg Acetaminophen (Tylenol 325mg Tab) 650 mg PO Q4 PRN PRN Reason: Pain, moderate (4-7) Last Admin: 09/03/16 03:33 Dose: 650 mg Albuterol/Ipratropium (Duoneb 3 Mg/0.5 Mg (3 Ml) Ud) 3 ml INH RQ4 PRN PRN Reason: Shortness of Breath Last Admin: 09/05/16 02:15 Dose: 3 ml Apixaban (Eliquis) 5 mg PO BID [facility] PRN Reason: Protocol Last Admin: 09/10/16 16:29 Dose: 5 mg Aspirin (Ecotrin) 81 mg PO DAILY [facility] Last Admin: 09/10/16 08:28 Dose: 81 mg Atorvastatin Calcium (Lipitor) 40 mg PO DAILY [facility] Last Admin: 09/10/16 08:29 Dose: 40 mg Benzonatate (Tessalon Perles) 200 mg PO TID PRN PRN Reason: Cough Last Admin: 09/07/16 22:00 Dose: 200 mg Cinacalcet (Sensipar) 30 mg PO DAILY [facility] Last Admin: 09/10/16 08:31 Dose: 30 mg Epoetin Tha (Procrit) 20,000 unit IV [facility] Last Admin: 09/06/16 21:15 Dose: 20,000 unit Guaifenesin/Codeine Phosphate (Robitussin W/Codeine) 10 ml PO Q4 PRN PRN Reason: Cough Last Admin: 09/10/16 09:01 Dose: 10 ml Hydrocortisone (Anusol-Hc) 1 applic [place] BID [facility] Last Admin: 09/10/16 16:29 Dose: 1 applic Piperacillin Sod/Tazobactam (Sod 2.25 gm/ Sodium Chloride) 100 mls @ 100 mls/ hr IVPB Q12 [facility] Last Admin: 09/10/16 08:32 Dose: 100 mls/hr Linezolid (Zyvox 600mg/300ml D5w) 300 mls @ 300 mls/hr IVPB Q12 [facility] Last Admin: 09/10/16 08:33 Dose: 300 mls/hr Meropenem 500 mg/ Sodium (Chloride) 100 mls @ 100 mls/hr IVPB DAILY [facility] Last Admin: 09/10/16 08:29 Dose: 100 mls/hr Amikacin Sulfate 250 mg/ (Sodium Chloride) 101 mls @ 100.609 mls/hr IVPB MWF [facility] Last Admin: 09/09/16 09:28 Dose: 100.609 mls/hr Insulin Detemir (Levemir) 28 units SC HS [facility] Last Admin: 09/09/16 21:11 Dose: 28 u Insulin Human Lispro (Humalog) 8 units SC AC [facility] Last Admin: 09/10/16 16:30 Dose: 8 units Lidocaine (Lidoderm) 1 ea TD DAILY [facility] Last Admin: 09/10/16 08:27 Dose: 1 ea Medroxyprogesterone Acetate (Provera) 10 mg PO DAILY [facility] Stop: 09/17/16 09:01 Last Admin: 09/10/16 08:30 Dose: 10 mg Nystatin (Mycostatin Oint) 1 applic TOP TID [facility] Last Admin: 09/10/16 16:31 Dose: 1 applic Ondansetron HCl (Zofran Inj) 4 mg IVP Q6 PRN PRN Reason: Nausea/Vomiting Last Admin: 09/02/16 12:11 Dose: 4 mg Pantoprazole Sodium (Protonix Ec Tab) 40 mg PO DAILY [facility] Last Admin: 09/10/16 08:30 Dose: 40 mg Sevelamer HCl (Renagel) 1,600 mg PO TID [facility] Last Admin: 09/10/16 16:31 Dose: 1,600 mg Topiramate (Topamax) 50 mg PO BID [facility] Last Admin: 09/10/16 16:31 Dose: 50 mg Vitamin B Complex/Vit C/Folic Acid (Nephro-Ajay) 1 tab PO DAILY [facility] Last Admin: 09/10/16 08:30 Dose: 1 tab - Labs Labs: 09/09/16 13:45 09/09/16 13:45 PT 16.5 SECONDS (9.6-11.2) H 08/28/16 16:11 INR 1.59 (0.92-1.08) H 08/28/16 16:11 APTT 38.7 SECONDS (23.3-32.5) H 08/28/16 16:11
[2016-09-10] MEDS: Insulin Detemir 100 Units/ml Inj SC SCH (21:32)
[2016-09-11] MEDS: guaiFENesin-Codeine 100-10mg/5ml Syrup (5 ml) UD PO PRN ×3 (00:43→22:56)
[2016-09-11 06:52] LABS: BASO # 0.1 K/uL (0.0-0.2); BASO % 0.9 % (0.0-2.0); EOS # 0.2 K/uL (0.0-0.7); EOS % 1.2 % (0.0-4.0); HEMATOCRIT 28.9 % (34.0-47.0); LYMPH # 1.2 K/uL (1.0-4.3); LYMPH % 9.2 % (20.0-40.0); MEAN CORPUSCULAR HEMOGLOBIN 28.8 pg (27.0-31.0); MEAN PLATELET VOLUME 8.9 fl (7.2-11.7); MONO # 1.2 K/uL (0.0-0.8); MONO % 8.5 % (0.0-10.0); NEUT # 10.8 K/uL (1.8-7.0); NEUT % 80.2 % (50.0-75.0); NRBC % 0.1 % (0.0-0.0); RED CELL DISTRIBUTION WIDTH 20.7 % (11.5-14.5); WHITE BLOOD COUNT 13.5 K/uL (4.8-10.8)
[2016-09-11 06:58] LABS: ALB/GLOB RATIO 0.6 (1.0-2.1); BILIRUBIN,TOTAL 0.8 mg/dl (0.2-1.3); CALCIUM 8.7 mg/dL (8.4-10.2); POTASSIUM 4.1 MMOL/L (3.6-5.0); TOTAL PROTEIN 7.6 G/DL (6.3-8.2)
--- NOTE | 2016-09-11 07:03 | CP.PCM.PN ---
Subjective - Date & Time of Evaluation Date of Evaluation: 09/11/16 Time of Evaluation: 07:20 - Subjective Subjective: 46 yo female patient seen at bedside in ICU regarding ulceration and resolving cellulits of right heel. Pt seen resting comfortably in bed at time of visit. Patient states that she feels "okay' today no major changes in he symptoms since yesterday. She denies recent f/n/v/c/sob/cp at this time. Reports pain t the right leg only when it is touched. She sleep and eats well. Still reports cough. Patient's multipodus boot is intact to right heel at time of visit. Objective - Vital Signs/Intake and Output Vital Signs (last 24 hours): Temp Pulse Resp BP Pulse Ox 98.5 F 107 H 16 127/75 100 09/11/16 04:00 09/11/16 06:00 09/11/16 06:00 09/11/16 06:00 09/11/16 06:00 Intake and Output: 09/11/16 09/11/16 06:59 18:59 Intake Total 480 Balance 480 - Medications Medications: Current Medications Acetaminophen (Tylenol 325mg Tab) 650 mg PO Q4 PRN PRN Reason: Fever >100.4 F Last Admin: 08/28/16 15:23 Dose: 650 mg Acetaminophen (Tylenol 325mg Tab) 650 mg PO Q4 PRN PRN Reason: Pain, moderate (4-7) Last Admin: 09/03/16 03:33 Dose: 650 mg Albuterol/Ipratropium (Duoneb 3 Mg/0.5 Mg (3 Ml) Ud) 3 ml INH RQ4 PRN PRN Reason: Shortness of Breath Last Admin: 09/05/16 02:15 Dose: 3 ml Apixaban (Eliquis) 5 mg PO BID [facility] PRN Reason: Protocol Last Admin: 09/10/16 16:29 Dose: 5 mg Aspirin (Ecotrin) 81 mg PO DAILY [facility] Last Admin: 09/10/16 08:28 Dose: 81 mg Atorvastatin Calcium (Lipitor) 40 mg PO DAILY [facility] Last Admin: 09/10/16 08:29 Dose: 40 mg Benzonatate (Tessalon Perles) 200 mg PO TID PRN PRN Reason: Cough Last Admin: 09/07/16 22:00 Dose: 200 mg Cinacalcet (Sensipar) 30 mg PO DAILY [facility] Last Admin: 09/10/16 08:31 Dose: 30 mg Epoetin Tha (Procrit) 20,000 unit IV MWF [facility] Last Admin: 09/06/16 21:15 Dose: 20,000 unit Guaifenesin/Codeine Phosphate (Robitussin W/Codeine) 10 ml PO Q4 PRN PRN Reason: Cough Last Admin: 09/11/16 00:43 Dose: 10 ml Hydrocortisone (Anusol-Hc) 1 applic IA BID [facility] Last Admin: 09/10/16 16:29 Dose: 1 applic Piperacillin Sod/Tazobactam (Sod 2.25 gm/ Sodium Chloride) 100 mls @ 100 mls/ hr IVPB Q12 [facility] Last Admin: 09/10/16 20:05 Dose: 100 mls/hr Linezolid (Zyvox 600mg/300ml D5w) 300 mls @ 300 mls/hr IVPB Q12 [facility] Last Admin: 09/10/16 21:33 Dose: 300 mls/hr Meropenem 500 mg/ Sodium (Chloride) 100 mls @ 100 mls/hr IVPB DAILY [facility] Last Admin: 09/10/16 08:29 Dose: 100 mls/hr Amikacin Sulfate 250 mg/ (Sodium Chloride) 101 mls @ 100.609 mls/hr IVPB MWF [facility] Last Admin: 09/09/16 09:28 Dose: 100.609 mls/hr Insulin Detemir (Levemir) 28 units SC HS [facility] Last Admin: 09/10/16 21:32 Dose: 28 u Insulin Human Lispro (Humalog) 8 units SC AC [facility] Last Admin: 09/10/16 16:30 Dose: 8 units Lidocaine (Lidoderm) 1 ea TD DAILY [facility] Last Admin: 09/10/16 08:27 Dose: 1 ea Medroxyprogesterone Acetate (Provera) 10 mg PO DAILY [facility] Stop: 09/17/16 09:01 Last Admin: 09/10/16 08:30 Dose: 10 mg Nystatin (Mycostatin Oint) 1 applic TOP TID [facility] Last Admin: 09/10/16 16:31 Dose: 1 applic Ondansetron HCl (Zofran Inj) 4 mg IVP Q6 PRN PRN Reason: Nausea/Vomiting Last Admin: 09/02/16 12:11 Dose: 4 mg Pantoprazole Sodium (Protonix Ec Tab) 40 mg PO DAILY [facility] Last Admin: 09/10/16 08:30 Dose: 40 mg Sevelamer HCl (Renagel) 1,600 mg PO TID [facility] Last Admin: 09/10/16 16:31 Dose: 1,600 mg Topiramate (Topamax) 50 mg PO BID [facility] Last Admin: 09/10/16 16:31 Dose: 50 mg Vitamin B Complex/Vit C/Folic Acid (Nephro-Ajay) 1 tab PO DAILY [facility] Last Admin: 09/10/16 08:30 Dose: 1 tab - Labs Labs: 09/09/16 13:45 09/11/16 06:33 PT 16.5 SECONDS (9.6-11.2) H 08/28/16 16:11 INR 1.59 (0.92-1.08) H 08/28/16 16:11 APTT 38.7 SECONDS (23.3-32.5) H 08/28/16 16:11 - Constitutional Appears: Non-toxic, No Acute Distress, Chronically Ill - Extremities Exam Additional comments: Right lower extremity exam: VASC- DP/PT pulses non-palpable, capillary refill < 5 sec to digits x 5, mild 1 + pitting edema noted to anterior aspect of leg and dorsum of foot. Decreased callor localized to right leg terminating distal to ankle joint absent erythema. NEURO-gross pedal sensation is diminished DERM- Superficial dry eschar noted to plantar aspect of heel, appears dry absent drainage on compression, purulence, increased warmth, no local or ascending erythema, no acute signs infection. ORTHO- Mild tenderness noted to distal posterior and lateral legs today, severe varus deformity with dislocation of ankle noted. Pedal muscle strength of 4 major pedal muscle groups is: 4/5 for posterior group and 3/5 for anterior, lateral, and medial muscle groups. - Neurological Exam Neurological Exam: Alert, Awake, Oriented x3 - Psychiatric Exam Psychiatric exam: Normal Affect, Normal Mood Assessment and Plan - Assessment and Plan (Free Text) Assessment: 46 yo female patient w/ pmhx of HTN, ESRD (on dialysis), coagulopathy, DM, charcot right foot PVD w/ stable dry eschar of right heel. Plan: -Pt S&E at bedside -Discussed plan w/ Dr. Pruett -Chart, labs, vitals reviewed: afebrile, WBC 13k -Dressing changed with wet to dry DSD, multipodus boot reapplied -c/w IV abx per ID --Will continue to follow while patient remains in house
[2016-09-11] MEDS: Insulin Lispro (humaLOG) 100 Units/ml Inj SC SCH ×3 (07:27→16:33)
[2016-09-11] MEDS: Hydrocortisone 2.5% (Rectal) CREAM PR SCH ×2 (08:55→16:31)
[2016-09-11] MEDS: Lidocaine 5% Patch TD SCH (08:58)
[2016-09-11] MEDS: Meropenem 500 MG in Sodium Chloride 0.9% 100 ML IVPB SCH (09:05)
[2016-09-11] MEDS: Multivitamin Vitamin B Complex (Nephro-Vite) Tab PO SCH (09:06)
[2016-09-11] MEDS: Nystatin Ointment TOP SCH ×3 (09:06→16:33)
[2016-09-11] MEDS: Pantoprazole 40 mg EC Tab PO SCH (09:07)
[2016-09-11] MEDS: Linezolid 600 mg in D5W 300 ml 300 ML IVPB SCH ×2 (09:10→22:36)
--- NOTE | 2016-09-11 09:51 | CP.PCM.PN ---
Subjective - Date & Time of Evaluation Date of Evaluation: 09/11/16 Time of Evaluation: 09:47 - Subjective Subjective: Dr. Gordon's note appreciated, and I do agree that we want patient to have maximal mobility. My concern at this time is that the problem appears to be more than simply dry eschar of the left heel. I do not understand why the so- called cellulitis of the right lower leg has not resolved after 2 weeks of appropriate iv antibiotic therapy. Nor is it clear why the alk. phosphatase remains elevated in the absence of bone involvement. And, why is the wbc not returning to normal? I will explore possible vascular consultation to see if we need to do more to improve healing. Meanwhile the patient has developed Stage II decubitus ulcerations of the sacral area. Less cough but needs to decrease Robitussin AC dosing as it makes her drowsy. Will request physical therapy evaluation and try to get patient OOB into a chair at least once a day - even if we need a Maurice lift to do it. Objective - Vital Signs/Intake and Output Vital Signs (last 24 hours): Temp Pulse Resp BP Pulse Ox 98.3 F 105 H 18 143/85 100 09/11/16 08:00 09/11/16 08:00 09/11/16 08:00 09/11/16 08:00 09/11/16 08:00 Intake and Output: 09/11/16 09/11/16 06:59 18:59 Intake Total 480 600 Balance 480 600 - Medications Medications: Current Medications Acetaminophen (Tylenol 325mg Tab) 650 mg PO Q4 PRN PRN Reason: Fever >100.4 F Last Admin: 08/28/16 15:23 Dose: 650 mg Acetaminophen (Tylenol 325mg Tab) 650 mg PO Q4 PRN PRN Reason: Pain, moderate (4-7) Last Admin: 09/03/16 03:33 Dose: 650 mg Albuterol/Ipratropium (Duoneb 3 Mg/0.5 Mg (3 Ml) Ud) 3 ml INH RQ4 PRN PRN Reason: Shortness of Breath Last Admin: 09/05/16 02:15 Dose: 3 ml Apixaban (Eliquis) 5 mg PO BID [facility] PRN Reason: Protocol Last Admin: 09/11/16 08:57 Dose: 5 mg Aspirin (Ecotrin) 81 mg PO DAILY [facility] Last Admin: 09/11/16 08:57 Dose: 81 mg Atorvastatin Calcium (Lipitor) 40 mg PO DAILY [facility] Last Admin: 09/11/16 09:00 Dose: 40 mg Benzonatate (Tessalon Perles) 200 mg PO TID PRN PRN Reason: Cough Last Admin: 09/07/16 22:00 Dose: 200 mg Cinacalcet (Sensipar) 30 mg PO DAILY [facility] Last Admin: 09/11/16 09:08 Dose: 30 mg Epoetin Tha (Procrit) 20,000 unit IV MWF [facility] Last Admin: 09/06/16 21:15 Dose: 20,000 unit Guaifenesin/Codeine Phosphate (Robitussin W/Codeine) 10 ml PO Q4 PRN PRN Reason: Cough Last Admin: 09/11/16 00:43 Dose: 10 ml Hydrocortisone (Anusol-Hc) 1 applic SC BID [facility] Last Admin: 09/11/16 08:55 Dose: 1 applic Piperacillin Sod/Tazobactam (Sod 2.25 gm/ Sodium Chloride) 100 mls @ 100 mls/ hr IVPB Q12 [facility] Last Admin: 09/11/16 09:09 Dose: 100 mls/hr Linezolid (Zyvox 600mg/300ml D5w) 300 mls @ 300 mls/hr IVPB Q12 [facility] Last Admin: 09/11/16 09:10 Dose: 300 mls/hr Meropenem 500 mg/ Sodium (Chloride) 100 mls @ 100 mls/hr IVPB DAILY [facility] Last Admin: 09/11/16 09:05 Dose: 100 mls/hr Amikacin Sulfate 250 mg/ (Sodium Chloride) 101 mls @ 100.609 mls/hr IVPB MWF [facility] Last Admin: 09/11/16 08:53 Dose: 100.609 mls/hr Insulin Detemir (Levemir) 28 units SC HS [facility] Last Admin: 09/10/16 21:32 Dose: 28 u Insulin Human Lispro (Humalog) 8 units SC AC [facility] Last Admin: 09/11/16 07:27 Dose: 8 units Lidocaine (Lidoderm) 1 ea TD DAILY [facility] Last Admin: 09/11/16 08:58 Dose: 1 ea Medroxyprogesterone Acetate (Provera) 10 mg PO DAILY [facility] Stop: 09/17/16 09:01 Last Admin: 09/11/16 09:07 Dose: 10 mg Nystatin (Mycostatin Oint) 1 applic TOP TID [facility] Last Admin: 09/11/16 09:06 Dose: 1 applic Ondansetron HCl (Zofran Inj) 4 mg IVP Q6 PRN PRN Reason: Nausea/Vomiting Last Admin: 09/02/16 12:11 Dose: 4 mg Pantoprazole Sodium (Protonix Ec Tab) 40 mg PO DAILY [facility] Last Admin: 09/11/16 09:07 Dose: 40 mg Sevelamer HCl (Renagel) 1,600 mg PO TID [facility] Last Admin: 09/11/16 09:07 Dose: 1,600 mg Topiramate (Topamax) 50 mg PO BID [facility] Last Admin: 09/11/16 09:09 Dose: 50 mg Vitamin B Complex/Vit C/Folic Acid (Nephro-Ajay) 1 tab PO DAILY [facility] Last Admin: 09/11/16 09:06 Dose: 1 tab - Labs Labs: 09/11/16 06:33 09/11/16 06:33 PT 16.5 SECONDS (9.6-11.2) H 08/28/16 16:11 INR 1.59 (0.92-1.08) H 08/28/16 16:11 APTT 38.7 SECONDS (23.3-32.5) H 08/28/16 16:11 Wound culture right heel taken on 09/10 is pending. - Head Exam Head Exam: NORMAL INSPECTION - Eye Exam Eye Exam: Normal appearance - ENT Exam ENT Exam: Mucous Membranes Moist - Respiratory Exam Respiratory Exam: Clear to Ausculation Bilateral - Cardiovascular Exam Cardiovascular Exam: REGULAR RHYTHM - GI/Abdominal Exam GI & Abdominal Exam: Soft - Extremities Exam Additional comments: Puffiness of right hand is a bit worrisome, but no pain or open lesions and no excessive coolness. Right lower tibial area is tender to touch, sl swollen, tense, very warm. R foot/heel in dressing. - Back Exam Back Exam: vertebral tenderness Additional comments: Several stage II ulcerations in sacral area - new. - Skin Additional comments: See back exam above. Excoriations beneath breasts are healing. Assessment and Plan (1) ESRD (end stage renal disease) on dialysis Status: Chronic (2) DM type 2 (diabetes mellitus, type 2) Status: Chronic (3) Coagulopathy Status: Chronic (4) Peripheral arterial occlusive disease Status: Chronic (5) Ulcer of right heel Status: Resolved (6) SIRS (systemic inflammatory response syndrome) Status: Acute (7) Pneumonia Status: Acute (8) Menorrhagia Status: Acute (9) Decubitus ulcer of sacral region, stage 2 Assessment & Plan: Will request wound care evaluation. Status: Acute
--- NOTE | 2016-09-11 13:09 | CP.PCM.PN ---
Subjective - Date & Time of Evaluation Date of Evaluation: 09/11/16 Time of Evaluation: 13:08 - Subjective Subjective: Patient is awake consciousness No new event reported Vital signs stable Physical exam Chest clear Heart no rubs Abdomen soft Extremity no significant changes Impression and plan Hemodialysis as scheduled shortly With ultrafiltration about 2000 mL as tolerated Patient appears to be stable continue treatment with antibiotics Objective - Vital Signs/Intake and Output Vital Signs (last 24 hours): Temp Pulse Resp BP Pulse Ox 98.7 F 115 H 18 136/79 98 09/11/16 12:00 09/11/16 12:00 09/11/16 12:00 09/11/16 12:00 09/11/16 12:00 Intake and Output: 09/11/16 09/11/16 06:59 18:59 Intake Total 480 600 Balance 480 600 - Medications Medications: Current Medications Acetaminophen (Tylenol 325mg Tab) 650 mg PO Q4 PRN PRN Reason: Fever >100.4 F Last Admin: 08/28/16 15:23 Dose: 650 mg Acetaminophen (Tylenol 325mg Tab) 650 mg PO Q4 PRN PRN Reason: Pain, moderate (4-7) Last Admin: 09/03/16 03:33 Dose: 650 mg Albuterol/Ipratropium (Duoneb 3 Mg/0.5 Mg (3 Ml) Ud) 3 ml INH RQ4 PRN PRN Reason: Shortness of Breath Last Admin: 09/05/16 02:15 Dose: 3 ml Apixaban (Eliquis) 5 mg PO BID [facility] PRN Reason: Protocol Last Admin: 09/11/16 08:57 Dose: 5 mg Aspirin (Ecotrin) 81 mg PO DAILY [facility] Last Admin: 09/11/16 08:57 Dose: 81 mg Atorvastatin Calcium (Lipitor) 40 mg PO DAILY [facility] Last Admin: 09/11/16 09:00 Dose: 40 mg Benzonatate (Tessalon Perles) 200 mg PO TID PRN PRN Reason: Cough Last Admin: 09/07/16 22:00 Dose: 200 mg Cinacalcet (Sensipar) 30 mg PO DAILY [facility] Last Admin: 09/11/16 09:08 Dose: 30 mg Epoetin Tha (Procrit) 20,000 unit IV MWF [facility] Last Admin: 09/06/16 21:15 Dose: 20,000 unit Guaifenesin/Codeine Phosphate (Robitussin W/Codeine) 10 ml PO Q4 PRN PRN Reason: Cough Last Admin: 09/11/16 00:43 Dose: 10 ml Hydrocortisone (Anusol-Hc) 1 applic NE BID [facility] Last Admin: 09/11/16 08:55 Dose: 1 applic Piperacillin Sod/Tazobactam (Sod 2.25 gm/ Sodium Chloride) 100 mls @ 100 mls/ hr IVPB Q12 [facility] Last Admin: 09/11/16 09:09 Dose: 100 mls/hr Linezolid (Zyvox 600mg/300ml D5w) 300 mls @ 300 mls/hr IVPB Q12 [facility] Last Admin: 09/11/16 09:10 Dose: 300 mls/hr Meropenem 500 mg/ Sodium (Chloride) 100 mls @ 100 mls/hr IVPB DAILY [facility] Last Admin: 09/11/16 09:05 Dose: 100 mls/hr Amikacin Sulfate 250 mg/ (Sodium Chloride) 101 mls @ 100.609 mls/hr IVPB MWF [facility] Last Admin: 09/11/16 08:53 Dose: 100.609 mls/hr Insulin Detemir (Levemir) 28 units SC HS [facility] Last Admin: 09/10/16 21:32 Dose: 28 u Insulin Human Lispro (Humalog) 8 units SC AC [facility] Last Admin: 09/11/16 12:16 Dose: 8 units Lidocaine (Lidoderm) 1 ea TD DAILY [facility] Last Admin: 09/11/16 08:58 Dose: 1 ea Medroxyprogesterone Acetate (Provera) 10 mg PO DAILY [facility] Stop: 09/17/16 09:01 Last Admin: 09/11/16 09:07 Dose: 10 mg Nystatin (Mycostatin Oint) 1 applic TOP TID [facility] Last Admin: 09/11/16 12:16 Dose: 1 applic Ondansetron HCl (Zofran Inj) 4 mg IVP Q6 PRN PRN Reason: Nausea/Vomiting Last Admin: 09/02/16 12:11 Dose: 4 mg Pantoprazole Sodium (Protonix Ec Tab) 40 mg PO DAILY [facility] Last Admin: 09/11/16 09:07 Dose: 40 mg Sevelamer HCl (Renagel) 1,600 mg PO TID [facility] Last Admin: 09/11/16 12:17 Dose: 1,600 mg Topiramate (Topamax) 50 mg PO BID [facility] Last Admin: 09/11/16 09:09 Dose: 50 mg Vitamin B Complex/Vit C/Folic Acid (Nephro-Ajay) 1 tab PO DAILY [facility] Last Admin: 09/11/16 09:06 Dose: 1 tab - Labs Labs: 09/11/16 06:33 09/11/16 06:33 PT 16.5 SECONDS (9.6-11.2) H 08/28/16 16:11 INR 1.59 (0.92-1.08) H 08/28/16 16:11 APTT 38.7 SECONDS (23.3-32.5) H 08/28/16 16:11 Assessment and Plan (1) ESRD (end stage renal disease) Status: Chronic (2) Cellulitis of leg Status: Acute
--- NOTE | 2016-09-11 15:31 | CP.PCM.PN ---
Subjective - Date & Time of Evaluation Date of Evaluation: 09/11/16 Time of Evaluation: 15:27 - Subjective Subjective: I D NOTE WBC IS 13.5 c 80 POLYS ALL FOLLOWUP CULTURES ARE NEGATIVE HAVE ORDERED RANDOM AMIKACIN LEVELS AT PRESENT PATIENT NEEDS TO CONTINUE C ANTIBIOTIC RX Objective - Vital Signs/Intake and Output Vital Signs (last 24 hours): Temp Pulse Resp BP Pulse Ox 98.7 F 115 H 18 136/79 98 09/11/16 12:00 09/11/16 12:00 09/11/16 12:00 09/11/16 12:00 09/11/16 12:00 Intake and Output: 09/11/16 09/11/16 06:59 18:59 Intake Total 480 600 Balance 480 600 - Medications Medications: Current Medications Acetaminophen (Tylenol 325mg Tab) 650 mg PO Q4 PRN PRN Reason: Fever >100.4 F Last Admin: 08/28/16 15:23 Dose: 650 mg Acetaminophen (Tylenol 325mg Tab) 650 mg PO Q4 PRN PRN Reason: Pain, moderate (4-7) Last Admin: 09/03/16 03:33 Dose: 650 mg Albuterol/Ipratropium (Duoneb 3 Mg/0.5 Mg (3 Ml) Ud) 3 ml INH RQ4 PRN PRN Reason: Shortness of Breath Last Admin: 09/05/16 02:15 Dose: 3 ml Apixaban (Eliquis) 5 mg PO BID [facility] PRN Reason: Protocol Last Admin: 09/11/16 08:57 Dose: 5 mg Aspirin (Ecotrin) 81 mg PO DAILY [facility] Last Admin: 09/11/16 08:57 Dose: 81 mg Atorvastatin Calcium (Lipitor) 40 mg PO DAILY [facility] Last Admin: 09/11/16 09:00 Dose: 40 mg Benzonatate (Tessalon Perles) 200 mg PO TID PRN PRN Reason: Cough Last Admin: 09/07/16 22:00 Dose: 200 mg Cinacalcet (Sensipar) 30 mg PO DAILY [facility] Last Admin: 09/11/16 09:08 Dose: 30 mg Epoetin Tha (Procrit) 20,000 unit IV MWF [facility] Last Admin: 09/06/16 21:15 Dose: 20,000 unit Guaifenesin/Codeine Phosphate (Robitussin W/Codeine) 10 ml PO Q4 PRN PRN Reason: Cough Last Admin: 09/11/16 00:43 Dose: 10 ml Hydrocortisone (Anusol-Hc) 1 applic RI BID [facility] Last Admin: 09/11/16 08:55 Dose: 1 applic Piperacillin Sod/Tazobactam (Sod 2.25 gm/ Sodium Chloride) 100 mls @ 100 mls/ hr IVPB Q12 [facility] Last Admin: 09/11/16 09:09 Dose: 100 mls/hr Linezolid (Zyvox 600mg/300ml D5w) 300 mls @ 300 mls/hr IVPB Q12 [facility] Last Admin: 09/11/16 09:10 Dose: 300 mls/hr Meropenem 500 mg/ Sodium (Chloride) 100 mls @ 100 mls/hr IVPB DAILY [facility] Last Admin: 09/11/16 09:05 Dose: 100 mls/hr Amikacin Sulfate 250 mg/ (Sodium Chloride) 101 mls @ 100.609 mls/hr IVPB MWF [facility] Last Admin: 09/11/16 08:53 Dose: 100.609 mls/hr Insulin Detemir (Levemir) 28 units SC HS [facility] Last Admin: 09/10/16 21:32 Dose: 28 u Insulin Human Lispro (Humalog) 8 units SC AC [facility] Last Admin: 09/11/16 12:16 Dose: 8 units Lidocaine (Lidoderm) 1 ea TD DAILY [facility] Last Admin: 09/11/16 08:58 Dose: 1 ea Medroxyprogesterone Acetate (Provera) 10 mg PO DAILY [facility] Stop: 09/17/16 09:01 Last Admin: 09/11/16 09:07 Dose: 10 mg Nystatin (Mycostatin Oint) 1 applic TOP TID [facility] Last Admin: 09/11/16 12:16 Dose: 1 applic Ondansetron HCl (Zofran Inj) 4 mg IVP Q6 PRN PRN Reason: Nausea/Vomiting Last Admin: 09/02/16 12:11 Dose: 4 mg Pantoprazole Sodium (Protonix Ec Tab) 40 mg PO DAILY [facility] Last Admin: 09/11/16 09:07 Dose: 40 mg Sevelamer HCl (Renagel) 1,600 mg PO TID [facility] Last Admin: 09/11/16 12:17 Dose: 1,600 mg Topiramate (Topamax) 50 mg PO BID [facility] Last Admin: 09/11/16 09:09 Dose: 50 mg Vitamin B Complex/Vit C/Folic Acid (Nephro-Ajay) 1 tab PO DAILY [facility] Last Admin: 09/11/16 09:06 Dose: 1 tab - Labs Labs: 09/11/16 06:33 09/11/16 06:33 PT 16.5 SECONDS (9.6-11.2) H 08/28/16 16:11 INR 1.59 (0.92-1.08) H 08/28/16 16:11 APTT 38.7 SECONDS (23.3-32.5) H 08/28/16 16:11
--- NOTE | 2016-09-11 15:33 | PN ---
DATE: 09/11/2016 ROOM: 421 ICU. This is a 46-year-old female with recent uncontrolled type 2 insulin-requiring diabetes, now being fo llowed closely for metabolic management. Her glycemic levels are fluctuating, but improved, and the latest glucose levels have ranged from 113-150 and 188 mg/dL. Her latest chemistries include a BUN o f 26, sodium 137, potassium 4.1, chloride 101, CO2 of 24, glucose 121, and creatinine 6.7. So, at this time, we will continue the same basal and bolus insulin regimen to allow for dose equilib ration and keep her on the Levemir given as 28 units subQ at bedtime daily as ordered. We will larissa nue the Humalog given as 8 units subQ t.i.d. before meals as given. She is undergoing IV antibiotic management for gram-negative bacteremia with underlying right heel neuropathic ulceration with possib le osteomyelitis. We will obtain serial chemistries and supplement accordingly as needed. We will f sea. Irene Ambrose MD cc: [id number] TT: 09/11/2016 15:32:54 Confirmation # [id number] Dictation # [id number] sn
[2016-09-11] MEDS: Epoetin Alfa 20000 UNIT/ML Inj IV SCH (16:34)
--- NOTE | 2016-09-11 18:53 | PN ---
DATE: 09/11/2016 I have extensively discussed the case with Dr. Thomas and Dr. Guadarrama. At this point, there is no straight evidence that the sepsis comes from the foot, and even if it did come from the foot at this point, it is well controlled. There is no indication to do a atgne-[id number] amputation on a Charcot foot without exploring first the possibility of peripheral vascular disease. 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 She is extremely overweight and would be tremendo usly difficult to ambulate or even to get out of bed with a right [id number] amputation. On the other hand, if the omlbo-xog-xwox amputation does not heal or she becomes bedridden, then it would marks ve to be an bkqup-gfz-wgla amputation. At this point, I suggest very strongly a vascular evaluation. She has evidence of severe small vessel disease secondary to diabetes and also severe peripheral va scular disease and she may benefit from revascularization. Again, I suggest very strongly a vascular evaluation. We will follow with you. Brian Pastrana MD cc: [phone] TT: 09/11/2016 18:53:13 Confirmation # [id number] Dictation # [id number]
[2016-09-11] MEDS: Insulin Detemir 100 Units/ml Inj SC SCH (22:54)
--- NOTE | 2016-09-12 00:32 | CP.PCM.PN ---
Subjective - Date & Time of Evaluation Date of Evaluation: 09/11/16 Time of Evaluation: 20:10 - Subjective Subjective: No seizures, no more talking about BKA surgery, now a chance is given to the Antibiotics to resolve the problem of infection. Patient is improving clinically. Objective - Vital Signs/Intake and Output Vital Signs (last 24 hours): Temp Pulse Resp BP Pulse Ox 98.5 F 109 H 22 122/70 98 09/11/16 15:56 09/11/16 15:56 09/11/16 15:56 09/11/16 15:56 09/11/16 12:00 Intake and Output: 09/11/16 09/12/16 18:59 06:59 Intake Total 600 Balance 600 - Medications Medications: Current Medications Acetaminophen (Tylenol 325mg Tab) 650 mg PO Q4 PRN PRN Reason: Fever >100.4 F Last Admin: 08/28/16 15:23 Dose: 650 mg Acetaminophen (Tylenol 325mg Tab) 650 mg PO Q4 PRN PRN Reason: Pain, moderate (4-7) Last Admin: 09/03/16 03:33 Dose: 650 mg Albuterol/Ipratropium (Duoneb 3 Mg/0.5 Mg (3 Ml) Ud) 3 ml INH RQ4 PRN PRN Reason: Shortness of Breath Last Admin: 09/05/16 02:15 Dose: 3 ml Apixaban (Eliquis) 5 mg PO BID [facility] PRN Reason: Protocol Last Admin: 09/11/16 16:32 Dose: 5 mg Aspirin (Ecotrin) 81 mg PO DAILY [facility] Last Admin: 09/11/16 08:57 Dose: 81 mg Atorvastatin Calcium (Lipitor) 40 mg PO DAILY [facility] Last Admin: 09/11/16 09:00 Dose: 40 mg Benzonatate (Tessalon Perles) 200 mg PO TID PRN PRN Reason: Cough Last Admin: 09/07/16 22:00 Dose: 200 mg Cinacalcet (Sensipar) 30 mg PO DAILY [facility] Last Admin: 09/11/16 09:08 Dose: 30 mg Epoetin Tha (Procrit) 20,000 unit IV MWF [facility] Last Admin: 09/11/16 16:34 Dose: 20,000 unit Guaifenesin/Codeine Phosphate (Robitussin W/Codeine) 10 ml PO Q4 PRN PRN Reason: Cough Last Admin: 09/11/16 22:56 Dose: 10 ml Hydrocortisone (Anusol-Hc) 1 applic [place] BID [facility] Last Admin: 09/11/16 16:31 Dose: 1 applic Piperacillin Sod/Tazobactam (Sod 2.25 gm/ Sodium Chloride) 100 mls @ 100 mls/ hr IVPB Q12 [facility] Last Admin: 09/11/16 21:20 Dose: 100 mls/hr Linezolid (Zyvox 600mg/300ml D5w) 300 mls @ 300 mls/hr IVPB Q12 [facility] Last Admin: 09/11/16 22:36 Dose: 300 mls/hr Meropenem 500 mg/ Sodium (Chloride) 100 mls @ 100 mls/hr IVPB DAILY [facility] Last Admin: 09/11/16 09:05 Dose: 100 mls/hr Amikacin Sulfate 250 mg/ (Sodium Chloride) 101 mls @ 100.609 mls/hr IVPB MWF [facility] Last Admin: 09/11/16 08:53 Dose: 100.609 mls/hr Insulin Detemir (Levemir) 28 units SC HS [facility] Last Admin: 09/11/16 22:54 Dose: 28 u Insulin Human Lispro (Humalog) 8 units SC AC [facility] Last Admin: 09/11/16 16:33 Dose: 8 units Lidocaine (Lidoderm) 1 ea TD DAILY [facility] Last Admin: 09/11/16 08:58 Dose: 1 ea Medroxyprogesterone Acetate (Provera) 10 mg PO DAILY [facility] Stop: 09/17/16 09:01 Last Admin: 09/11/16 09:07 Dose: 10 mg Nystatin (Mycostatin Oint) 1 applic TOP TID [facility] Last Admin: 09/11/16 16:33 Dose: 1 applic Ondansetron HCl (Zofran Inj) 4 mg IVP Q6 PRN PRN Reason: Nausea/Vomiting Last Admin: 09/02/16 12:11 Dose: 4 mg Pantoprazole Sodium (Protonix Ec Tab) 40 mg PO DAILY [facility] Last Admin: 09/11/16 09:07 Dose: 40 mg Sevelamer HCl (Renagel) 1,600 mg PO TID [facility] Last Admin: 09/11/16 16:34 Dose: 1,600 mg Topiramate (Topamax) 50 mg PO BID [facility] Last Admin: 09/11/16 16:35 Dose: 50 mg Vitamin B Complex/Vit C/Folic Acid (Nephro-Ajay) 1 tab PO DAILY [facility] Last Admin: 09/11/16 09:06 Dose: 1 tab - Labs Labs: 09/11/16 06:33 09/11/16 06:33 PT 16.5 SECONDS (9.6-11.2) H 08/28/16 16:11 INR 1.59 (0.92-1.08) H 08/28/16 16:11 APTT 38.7 SECONDS (23.3-32.5) H 08/28/16 16:11 Assessment and Plan (1) Diabetes Status: Chronic (2) ESRD (end stage renal disease) Status: Chronic (3) Cellulitis of leg Status: Acute (4) Hyperlipidemia Status: Acute (5) Back pain Status: Acute (6) Bacteremia due to Gram-negative bacteria Status: Acute (7) Diabetes mellitus type 2 with peripheral artery disease Status: Acute (8) PVD (peripheral vascular disease) Status: Acute
--- NOTE | 2016-09-12 06:39 | CP.PCM.PN ---
Subjective - Date & Time of Evaluation Date of Evaluation: 09/12/16 Time of Evaluation: 07:10 - Subjective Subjective: 46 yo female patient seen at bedside in ICU regarding ulceration and resolving cellulits of right heel. Pt seen resting comfortably in bed at time of visit. Patient states that she feels "better" today. She denies recent f/n/v/c/sob/cp at this time. Reports no pain to the right leg only when touched. She sleeps and eats well. Still reports cough, though she notes improvement in symptoms. Patient's multipodus boot is intact to right heel at time of visit. Objective - Vital Signs/Intake and Output Vital Signs (last 24 hours): Temp Pulse Resp BP Pulse Ox 98.5 F 115 H 18 108/57 L 100 09/12/16 00:00 09/12/16 01:00 09/12/16 01:00 09/12/16 01:00 09/12/16 01:00 Intake and Output: 09/11/16 09/12/16 18:59 06:59 Intake Total 600 520 Output Total 2500 Balance 600 -1980 - Medications Medications: Current Medications Acetaminophen (Tylenol 325mg Tab) 650 mg PO Q4 PRN PRN Reason: Fever >100.4 F Last Admin: 08/28/16 15:23 Dose: 650 mg Acetaminophen (Tylenol 325mg Tab) 650 mg PO Q4 PRN PRN Reason: Pain, moderate (4-7) Last Admin: 09/03/16 03:33 Dose: 650 mg Albuterol/Ipratropium (Duoneb 3 Mg/0.5 Mg (3 Ml) Ud) 3 ml INH RQ4 PRN PRN Reason: Shortness of Breath Last Admin: 09/05/16 02:15 Dose: 3 ml Apixaban (Eliquis) 5 mg PO BID [facility] PRN Reason: Protocol Last Admin: 09/11/16 16:32 Dose: 5 mg Aspirin (Ecotrin) 81 mg PO DAILY [facility] Last Admin: 09/11/16 08:57 Dose: 81 mg Atorvastatin Calcium (Lipitor) 40 mg PO DAILY [facility] Last Admin: 09/11/16 09:00 Dose: 40 mg Benzonatate (Tessalon Perles) 200 mg PO TID PRN PRN Reason: Cough Last Admin: 09/07/16 22:00 Dose: 200 mg Cinacalcet (Sensipar) 30 mg PO DAILY [facility] Last Admin: 09/11/16 09:08 Dose: 30 mg Epoetin Tha (Procrit) 20,000 unit IV MWF [facility] Last Admin: 09/11/16 16:34 Dose: 20,000 unit Guaifenesin/Codeine Phosphate (Robitussin W/Codeine) 10 ml PO Q4 PRN PRN Reason: Cough Last Admin: 09/11/16 22:56 Dose: 10 ml Hydrocortisone (Anusol-Hc) 1 applic [place] BID [facility] Last Admin: 09/11/16 16:31 Dose: 1 applic Piperacillin Sod/Tazobactam (Sod 2.25 gm/ Sodium Chloride) 100 mls @ 100 mls/ hr IVPB Q12 [facility] Last Admin: 09/11/16 21:20 Dose: 100 mls/hr Linezolid (Zyvox 600mg/300ml D5w) 300 mls @ 300 mls/hr IVPB Q12 [facility] Last Admin: 09/11/16 22:36 Dose: 300 mls/hr Meropenem 500 mg/ Sodium (Chloride) 100 mls @ 100 mls/hr IVPB DAILY [facility] Last Admin: 09/11/16 09:05 Dose: 100 mls/hr Amikacin Sulfate 250 mg/ (Sodium Chloride) 101 mls @ 100.609 mls/hr IVPB MWF [facility] Last Admin: 09/11/16 08:53 Dose: 100.609 mls/hr Insulin Detemir (Levemir) 28 units SC HS [facility] Last Admin: 09/11/16 22:54 Dose: 28 u Insulin Human Lispro (Humalog) 8 units SC AC [facility] Last Admin: 09/11/16 16:33 Dose: 8 units Lidocaine (Lidoderm) 1 ea TD DAILY [facility] Last Admin: 09/11/16 08:58 Dose: 1 ea Medroxyprogesterone Acetate (Provera) 10 mg PO DAILY [facility] Stop: 09/17/16 09:01 Last Admin: 09/11/16 09:07 Dose: 10 mg Nystatin (Mycostatin Oint) 1 applic TOP TID [facility] Last Admin: 09/11/16 16:33 Dose: 1 applic Ondansetron HCl (Zofran Inj) 4 mg IVP Q6 PRN PRN Reason: Nausea/Vomiting Last Admin: 09/02/16 12:11 Dose: 4 mg Pantoprazole Sodium (Protonix Ec Tab) 40 mg PO DAILY [facility] Last Admin: 09/11/16 09:07 Dose: 40 mg Sevelamer HCl (Renagel) 1,600 mg PO TID [facility] Last Admin: 09/11/16 16:34 Dose: 1,600 mg Topiramate (Topamax) 50 mg PO BID [facility] Last Admin: 09/11/16 16:35 Dose: 50 mg Vitamin B Complex/Vit C/Folic Acid (Nephro-Ajay) 1 tab PO DAILY [facility] Last Admin: 09/11/16 09:06 Dose: 1 tab - Labs Labs: 09/11/16 06:33 09/11/16 06:33 PT 16.5 SECONDS (9.6-11.2) H 08/28/16 16:11 INR 1.59 (0.92-1.08) H 08/28/16 16:11 APTT 38.7 SECONDS (23.3-32.5) H 08/28/16 16:11 - Constitutional Appears: Non-toxic, No Acute Distress - Extremities Exam Additional comments: Right lower extremity exam: VASC- DP/PT pulses non-palpable, capillary refill < 5 sec to digits x 5, mild 1 + pitting edema noted to anterior aspect of leg and dorsum of jah, new signs of decreased edema with return of relaxes skin tension lines. Leg absent callor, absent erythema. NEURO-gross pedal sensation is diminished DERM- Superficial dry eschar noted to plantar aspect of heel, with noted sanguinous crust along periphery , appears dry absent drainage on compression, purulence, increased warmth, no local or ascending erythema, no acute signs infection. ORTHO- Mild tenderness noted to distal posterior and lateral legs today, severe varus deformity with dislocation of ankle noted. Pedal muscle strength of 4 major pedal muscle groups is: 4/5 for posterior group and 3/5 for anterior, lateral, and medial muscle groups. - Neurological Exam Neurological Exam: Alert, Awake, Oriented x3 - Psychiatric Exam Psychiatric exam: Normal Affect, Normal Mood Assessment and Plan - Assessment and Plan (Free Text) Assessment: 46 yo female patient w/ pmhx of HTN, ESRD (on dialysis), coagulopathy, DM, charcot right foot PVD w/ stable dry eschar of right heel, cellulits resolving and eschar improving Plan: -Pt S&E at bedside. Chart, labs, vitals reviewed: afebrile, WBC 15.4k -Discussed plan w/ Dr. Pruett -Dressing changed with wet to dry DSD, multipodus boot reapplied -c/w IV abx per ID -Hgb= 7.5, to be transfused 2 units of PRBC. -Medical service provider notes appreciated, noted consensus reached among providers there is no necessity or plan to proceed with BKA at this time. -Will continue to follow while patient remains in house
[2016-09-12 07:06] LABS: BASO # 0.1 K/uL (0.0-0.2); BASO % 0.6 % (0.0-2.0); EOS # 0.2 K/uL (0.0-0.7); EOS % 1.5 % (0.0-4.0); HEMATOCRIT 23.6 % (34.0-47.0); LYMPH # 1.1 K/uL (1.0-4.3); LYMPH % 7.3 % (20.0-40.0); MEAN CELL VOLUME 91.6 fl (81.0-99.0); MEAN CORPUSCULAR HEMOGLOBIN 29.1 pg (27.0-31.0); MEAN CORPUSCULAR HGB CONC 31.8 g/dL (33.0-37.0); MEAN PLATELET VOLUME 9.3 fl (7.2-11.7); MONO # 1.2 K/uL (0.0-0.8); MONO % 7.8 % (0.0-10.0); NEUT # 12.8 K/uL (1.8-7.0); NEUT % 82.8 % (50.0-75.0); NRBC % 0.1 % (0.0-0.0); RED CELL DISTRIBUTION WIDTH 20.3 % (11.5-14.5); WHITE BLOOD COUNT 15.4 K/uL (4.8-10.8)
[2016-09-12 07:19] LABS: ALB/GLOB RATIO 0.6 (1.0-2.1); BILIRUBIN,TOTAL 0.7 mg/dl (0.2-1.3); CALCIUM 8.4 mg/dL (8.4-10.2); POTASSIUM 3.9 MMOL/L (3.6-5.0); TOTAL PROTEIN 7.3 G/DL (6.3-8.2)
--- NOTE | 2016-09-12 08:41 | CP.PCM.PN ---
Subjective - Date & Time of Evaluation Date of Evaluation: 09/12/16 Time of Evaluation: 08:38 - Subjective Subjective: Patient and bed awake Patient continued to improve and feeling better except of weakness No overnight changes reported in the clinical condition Completed hemodialysis yesterday without any problem with ultrafiltration approximately 2500 mL Physical exam Vital sign appears to be stable blood pressure is much better and stable Chest clear Heart no rubs Abdomen soft Extremity no changes Impression and plan White count going up Hemoglobin dropping Suggest to give 2 units of packed cells tomorrow on dialysis Patient already receiving EPO 20,000 units each hemodialysis. Objective - Vital Signs/Intake and Output Vital Signs (last 24 hours): Temp Pulse Resp BP Pulse Ox 99.0 F 109 H 18 130/92 H 100 09/12/16 07:28 09/12/16 07:28 09/12/16 07:28 09/12/16 07:28 09/12/16 07:28 Intake and Output: 09/12/16 09/12/16 06:59 18:59 Intake Total 580 Output Total 2500 Balance -1920 - Medications Medications: Current Medications Acetaminophen (Tylenol 325mg Tab) 650 mg PO Q4 PRN PRN Reason: Fever >100.4 F Last Admin: 08/28/16 15:23 Dose: 650 mg Acetaminophen (Tylenol 325mg Tab) 650 mg PO Q4 PRN PRN Reason: Pain, moderate (4-7) Last Admin: 09/03/16 03:33 Dose: 650 mg Albuterol/Ipratropium (Duoneb 3 Mg/0.5 Mg (3 Ml) Ud) 3 ml INH RQ4 PRN PRN Reason: Shortness of Breath Last Admin: 09/05/16 02:15 Dose: 3 ml Apixaban (Eliquis) 5 mg PO BID [facility] PRN Reason: Protocol Last Admin: 09/11/16 16:32 Dose: 5 mg Aspirin (Ecotrin) 81 mg PO DAILY [facility] Last Admin: 09/11/16 08:57 Dose: 81 mg Atorvastatin Calcium (Lipitor) 40 mg PO DAILY [facility] Last Admin: 09/11/16 09:00 Dose: 40 mg Benzonatate (Tessalon Perles) 200 mg PO TID PRN PRN Reason: Cough Last Admin: 09/07/16 22:00 Dose: 200 mg Cinacalcet (Sensipar) 30 mg PO DAILY [facility] Last Admin: 09/11/16 09:08 Dose: 30 mg Epoetin Tha (Procrit) 20,000 unit IV MWF [facility] Last Admin: 09/11/16 16:34 Dose: 20,000 unit Guaifenesin/Codeine Phosphate (Robitussin W/Codeine) 10 ml PO Q4 PRN PRN Reason: Cough Last Admin: 09/11/16 22:56 Dose: 10 ml Hydrocortisone (Anusol-Hc) 1 applic [place] BID [facility] Last Admin: 09/11/16 16:31 Dose: 1 applic Piperacillin Sod/Tazobactam (Sod 2.25 gm/ Sodium Chloride) 100 mls @ 100 mls/ hr IVPB Q12 [facility] Last Admin: 09/11/16 21:20 Dose: 100 mls/hr Linezolid (Zyvox 600mg/300ml D5w) 300 mls @ 300 mls/hr IVPB Q12 [facility] Last Admin: 09/11/16 22:36 Dose: 300 mls/hr Meropenem 500 mg/ Sodium (Chloride) 100 mls @ 100 mls/hr IVPB DAILY [facility] Last Admin: 09/11/16 09:05 Dose: 100 mls/hr Amikacin Sulfate 250 mg/ (Sodium Chloride) 101 mls @ 100.609 mls/hr IVPB MWF [facility] Last Admin: 09/11/16 08:53 Dose: 100.609 mls/hr Insulin Detemir (Levemir) 28 units SC HS [facility] Last Admin: 09/11/16 22:54 Dose: 28 u Insulin Human Lispro (Humalog) 8 units SC AC [facility] Last Admin: 09/11/16 16:33 Dose: 8 units Lidocaine (Lidoderm) 1 ea TD DAILY [facility] Last Admin: 09/11/16 08:58 Dose: 1 ea Medroxyprogesterone Acetate (Provera) 10 mg PO DAILY [facility] Stop: 09/17/16 09:01 Last Admin: 09/11/16 09:07 Dose: 10 mg Nystatin (Mycostatin Oint) 1 applic TOP TID [facility] Last Admin: 09/11/16 16:33 Dose: 1 applic Ondansetron HCl (Zofran Inj) 4 mg IVP Q6 PRN PRN Reason: Nausea/Vomiting Last Admin: 09/02/16 12:11 Dose: 4 mg Pantoprazole Sodium (Protonix Ec Tab) 40 mg PO DAILY [facility] Last Admin: 09/11/16 09:07 Dose: 40 mg Sevelamer HCl (Renagel) 1,600 mg PO TID [facility] Last Admin: 09/11/16 16:34 Dose: 1,600 mg Topiramate (Topamax) 50 mg PO BID [facility] Last Admin: 09/11/16 16:35 Dose: 50 mg Vitamin B Complex/Vit C/Folic Acid (Nephro-Ajay) 1 tab PO DAILY [facility] Last Admin: 09/11/16 09:06 Dose: 1 tab - Labs Labs: 09/12/16 06:43 09/12/16 06:43 PT 16.5 SECONDS (9.6-11.2) H 08/28/16 16:11 INR 1.59 (0.92-1.08) H 08/28/16 16:11 APTT 38.7 SECONDS (23.3-32.5) H 08/28/16 16:11 Assessment and Plan (1) ESRD (end stage renal disease) Status: Chronic (2) Cellulitis of leg Status: Acute
--- NOTE | 2016-09-12 08:49 | CP.PCM.PN ---
Subjective - Date & Time of Evaluation Date of Evaluation: 09/12/16 Time of Evaluation: 08:47 - Subjective Subjective: A decision has been made that pt does not need a BKA at this time. Her Hgb today is 7.5gms. Will transfuse her 2 units of packed cells with dialysis tomorrow. Objective - Vital Signs/Intake and Output Vital Signs (last 24 hours): Temp Pulse Resp BP Pulse Ox 99.0 F 109 H 18 130/92 H 100 09/12/16 07:28 09/12/16 07:28 09/12/16 07:28 09/12/16 07:28 09/12/16 07:28 Intake and Output: 09/12/16 09/12/16 06:59 18:59 Intake Total 580 Output Total 2500 Balance -1920 - Medications Medications: Current Medications Acetaminophen (Tylenol 325mg Tab) 650 mg PO Q4 PRN PRN Reason: Fever >100.4 F Last Admin: 08/28/16 15:23 Dose: 650 mg Acetaminophen (Tylenol 325mg Tab) 650 mg PO Q4 PRN PRN Reason: Pain, moderate (4-7) Last Admin: 09/03/16 03:33 Dose: 650 mg Albuterol/Ipratropium (Duoneb 3 Mg/0.5 Mg (3 Ml) Ud) 3 ml INH RQ4 PRN PRN Reason: Shortness of Breath Last Admin: 09/05/16 02:15 Dose: 3 ml Apixaban (Eliquis) 5 mg PO BID [facility] PRN Reason: Protocol Last Admin: 09/11/16 16:32 Dose: 5 mg Aspirin (Ecotrin) 81 mg PO DAILY [facility] Last Admin: 09/11/16 08:57 Dose: 81 mg Atorvastatin Calcium (Lipitor) 40 mg PO DAILY [facility] Last Admin: 09/11/16 09:00 Dose: 40 mg Benzonatate (Tessalon Perles) 200 mg PO TID PRN PRN Reason: Cough Last Admin: 09/07/16 22:00 Dose: 200 mg Cinacalcet (Sensipar) 30 mg PO DAILY [facility] Last Admin: 09/11/16 09:08 Dose: 30 mg Epoetin Tha (Procrit) 20,000 unit IV MWF [facility] Last Admin: 09/11/16 16:34 Dose: 20,000 unit Guaifenesin/Codeine Phosphate (Robitussin W/Codeine) 10 ml PO Q4 PRN PRN Reason: Cough Last Admin: 09/11/16 22:56 Dose: 10 ml Hydrocortisone (Anusol-Hc) 1 applic [place] BID [facility] Last Admin: 09/11/16 16:31 Dose: 1 applic Piperacillin Sod/Tazobactam (Sod 2.25 gm/ Sodium Chloride) 100 mls @ 100 mls/ hr IVPB Q12 [facility] Last Admin: 09/11/16 21:20 Dose: 100 mls/hr Linezolid (Zyvox 600mg/300ml D5w) 300 mls @ 300 mls/hr IVPB Q12 [facility] Last Admin: 09/11/16 22:36 Dose: 300 mls/hr Meropenem 500 mg/ Sodium (Chloride) 100 mls @ 100 mls/hr IVPB DAILY [facility] Last Admin: 09/11/16 09:05 Dose: 100 mls/hr Amikacin Sulfate 250 mg/ (Sodium Chloride) 101 mls @ 100.609 mls/hr IVPB MWF [facility] Last Admin: 09/11/16 08:53 Dose: 100.609 mls/hr Insulin Detemir (Levemir) 28 units SC HS [facility] Last Admin: 09/11/16 22:54 Dose: 28 u Insulin Human Lispro (Humalog) 8 units SC AC [facility] Last Admin: 09/11/16 16:33 Dose: 8 units Lidocaine (Lidoderm) 1 ea TD DAILY [facility] Last Admin: 09/11/16 08:58 Dose: 1 ea Medroxyprogesterone Acetate (Provera) 10 mg PO DAILY [facility] Stop: 09/17/16 09:01 Last Admin: 09/11/16 09:07 Dose: 10 mg Nystatin (Mycostatin Oint) 1 applic TOP TID [facility] Last Admin: 09/11/16 16:33 Dose: 1 applic Ondansetron HCl (Zofran Inj) 4 mg IVP Q6 PRN PRN Reason: Nausea/Vomiting Last Admin: 09/02/16 12:11 Dose: 4 mg Pantoprazole Sodium (Protonix Ec Tab) 40 mg PO DAILY [facility] Last Admin: 09/11/16 09:07 Dose: 40 mg Sevelamer HCl (Renagel) 1,600 mg PO TID [facility] Last Admin: 09/11/16 16:34 Dose: 1,600 mg Topiramate (Topamax) 50 mg PO BID [facility] Last Admin: 09/11/16 16:35 Dose: 50 mg Vitamin B Complex/Vit C/Folic Acid (Nephro-Ajay) 1 tab PO DAILY [facility] Last Admin: 09/11/16 09:06 Dose: 1 tab - Labs Labs: 09/12/16 06:43 09/12/16 06:43 PT 16.5 SECONDS (9.6-11.2) H 08/28/16 16:11 INR 1.59 (0.92-1.08) H 08/28/16 16:11 APTT 38.7 SECONDS (23.3-32.5) H 08/28/16 16:11
[2016-09-12] MEDS: Hydrocortisone 2.5% (Rectal) CREAM PR SCH ×2 (09:41→16:16)
[2016-09-12] MEDS: Insulin Lispro (humaLOG) 100 Units/ml Inj SC SCH ×3 (09:43→17:23)
[2016-09-12] MEDS: Lidocaine 5% Patch TD SCH (09:44)
[2016-09-12] MEDS: Meropenem 500 MG in Sodium Chloride 0.9% 100 ML IVPB SCH (09:45)
[2016-09-12] MEDS: Nystatin Ointment TOP SCH ×3 (09:45→17:24)
[2016-09-12] MEDS: Pantoprazole 40 mg EC Tab PO SCH (09:46)
[2016-09-12] MEDS: Multivitamin Vitamin B Complex (Nephro-Vite) Tab PO SCH (09:46)
[2016-09-12] MEDS: Linezolid 600 mg in D5W 300 ml 300 ML IVPB SCH ×2 (09:48→21:09)
--- NOTE | 2016-09-12 11:25 | CP.PCM.PN ---
Subjective - Date & Time of Evaluation Date of Evaluation: 09/12/16 Time of Evaluation: 11:05 - Subjective Subjective: REQUEST FOR VASCULAR SURGICAL CONSULTATION: REGARDING: VIABILITY OF RIGHT ANKLE/FOOT AND GUIDANCE IN DECISIONS FOR CARE HISTORY: 46 year old gentlewoman with a complex history admitted on 08/27/16. Shewas receiving wound care for a right heel ulcer when Dr. Gordon noted a fever of 102 degrees and a swollen, tender right calf. Doppler ultrasound was negative for DVTP. Over 24 hour period she went into septic shock and required pressor support and multiple antibiotics. Subsequent cultures of right heel, PICC line,and Permacath all grew E. Coli. Blood is now culture negative. She continues to have severe pain in the right calf (which is much warmer than the knee). WBC is rising (now 15,000) with left shift. Alk phos is mildly elevated (bone?), transaminases normall. PAST HX (IN BRIEF): DM - insulin dependent - Dr. Gallito Ambrose retention representative. ESRD - on hemodialysis - Dr. Alta Guadarrama is managing this. SEPSIS - Differing opinions as to source, but Dr. Shelby (ID analysis consultant) and I believe there is osteomyelitis of the right heel. 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 - mobile plant operators is Dr. Evita Shepard SEVERE PERIPHERAL ARTERIAL DISEASE - secondary to DM, hyperlipidemia, calcified vessels (due to metabolic complications of renal disease/dialysis). CHARCOT JOINT RIGHT ANKLE - ulcer developed in May 2016 - due to rubbing from boot/brace and has not been healed by intensive topical therapy IN THE PAST THE PATIENT CLOTTED MULTIPLE A-V fistulae - before her coagulopathy was recognized. S/P LEFT BK AMPUTATION - after attempt to declot a left femoral A-V fistula resulted in embolization of clot to lower leg. s/p RIGHT 3RD FINGER AMPUTATION after paronychial infection resulted in osteomyelitis LEFT HAND STEAL SYNDROME from A-V fistula L upper arm - resulted in gangrene and then osteomyelitis of 3 fingers - AMPUTATION L 2,3,4TH FINGERS PROTRACTED MENSES (currently on 10 day course of Provera) - oil well directional surveyor Dr. Larry anticipates need for hysterectomy in the future... NEW ONSET SEIZURE ACTIVITY DURING SIRS (THIS ADMISSION -Topamax started by neurologist Dr. Maguire. - Hopefully can be discontinued. S/P Hospital acquired pneumonia due to bibasilar atelectasis STABLE CARDIAC STATUS - Dr. Richard Shepard has cleared her for any needed surgery. PODIATRY BICYCLE TAXI DRIVER is Dr. Cyrus Gordon GENERAL BENDER HELPER is Dr. Brian Mayen MULTIPLE STUDIES: C T angiogram Doppler-ultrasound right leg MRI right tib/fib and ankle/foot (2 separate studies) 3 phase bone scan CXR's and Chest CT CT hip and lumbar spine CT Brain ECG Echocardiogram Objective - Vital Signs/Intake and Output Vital Signs (last 24 hours): Temp Pulse Resp BP Pulse Ox 99.0 F 109 H 18 130/92 H 100 09/12/16 07:28 09/12/16 07:28 09/12/16 07:28 09/12/16 07:28 09/12/16 07:28 Intake and Output: 09/12/16 09/12/16 06:59 18:59 Intake Total 580 500 Output Total 2500 Balance -1920 500 - Medications Medications: Current Medications Acetaminophen (Tylenol 325mg Tab) 650 mg PO Q4 PRN PRN Reason: Fever >100.4 F Last Admin: 08/28/16 15:23 Dose: 650 mg Acetaminophen (Tylenol 325mg Tab) 650 mg PO Q4 PRN PRN Reason: Pain, moderate (4-7) Last Admin: 09/03/16 03:33 Dose: 650 mg Albuterol/Ipratropium (Duoneb 3 Mg/0.5 Mg (3 Ml) Ud) 3 ml INH RQ4 PRN PRN Reason: Shortness of Breath Last Admin: 09/05/16 02:15 Dose: 3 ml Apixaban (Eliquis) 5 mg PO BID [facility] PRN Reason: Protocol Last Admin: 09/12/16 09:42 Dose: 5 mg Aspirin (Ecotrin) 81 mg PO DAILY [facility] Last Admin: 09/12/16 09:41 Dose: 81 mg Atorvastatin Calcium (Lipitor) 40 mg PO DAILY [facility] Last Admin: 09/12/16 09:45 Dose: 40 mg Benzonatate (Tessalon Perles) 200 mg PO TID PRN PRN Reason: Cough Last Admin: 09/07/16 22:00 Dose: 200 mg Cinacalcet (Sensipar) 30 mg PO DAILY [facility] Last Admin: 09/12/16 09:47 Dose: 30 mg Epoetin Tha (Procrit) 20,000 unit IV MWF [facility] Last Admin: 09/11/16 16:34 Dose: 20,000 unit Guaifenesin/Codeine Phosphate (Robitussin W/Codeine) 10 ml PO Q4 PRN PRN Reason: Cough Last Admin: 09/11/16 22:56 Dose: 10 ml Hydrocortisone (Anusol-Hc) 1 applic [place] BID [facility] Last Admin: 09/12/16 09:41 Dose: 1 applic Piperacillin Sod/Tazobactam (Sod 2.25 gm/ Sodium Chloride) 100 mls @ 100 mls/ hr IVPB Q12 [facility] Last Admin: 09/12/16 09:47 Dose: 100 mls/hr Linezolid (Zyvox 600mg/300ml D5w) 300 mls @ 300 mls/hr IVPB Q12 [facility] Last Admin: 09/12/16 09:48 Dose: 300 mls/hr Meropenem 500 mg/ Sodium (Chloride) 100 mls @ 100 mls/hr IVPB DAILY [facility] Last Admin: 09/12/16 09:45 Dose: 100 mls/hr Amikacin Sulfate 250 mg/ (Sodium Chloride) 101 mls @ 100.609 mls/hr IVPB MWF [facility] Last Admin: 09/11/16 08:53 Dose: 100.609 mls/hr Insulin Detemir (Levemir) 28 units SC HS [facility] Last Admin: 09/11/16 22:54 Dose: 28 u Insulin Human Lispro (Humalog) 8 units SC AC [facility] Last Admin: 09/12/16 09:43 Dose: 8 units Lidocaine (Lidoderm) 1 ea TD DAILY [facility] Last Admin: 09/12/16 09:44 Dose: 1 ea Medroxyprogesterone Acetate (Provera) 10 mg PO DAILY [facility] Stop: 09/17/16 09:01 Last Admin: 09/12/16 09:47 Dose: 10 mg Nystatin (Mycostatin Oint) 1 applic TOP TID [facility] Last Admin: 09/12/16 09:45 Dose: 1 applic Ondansetron HCl (Zofran Inj) 4 mg IVP Q6 PRN PRN Reason: Nausea/Vomiting Last Admin: 09/02/16 12:11 Dose: 4 mg Pantoprazole Sodium (Protonix Ec Tab) 40 mg PO DAILY [facility] Last Admin: 09/12/16 09:46 Dose: 40 mg Sevelamer HCl (Renagel) 1,600 mg PO TID [facility] Last Admin: 09/12/16 09:47 Dose: 1,600 mg Topiramate (Topamax) 50 mg PO BID [facility] Last Admin: 09/12/16 09:47 Dose: 50 mg Vitamin B Complex/Vit C/Folic Acid (Nephro-Ajay) 1 tab PO DAILY [facility] Last Admin: 09/12/16 09:46 Dose: 1 tab - Labs Labs: 09/12/16 06:43 09/12/16 06:43 PT 16.5 SECONDS (9.6-11.2) H 08/28/16 16:11 INR 1.59 (0.92-1.08) H 08/28/16 16:11 APTT 38.7 SECONDS (23.3-32.5) H 08/28/16 16:11 - Constitutional Appears: Other (Uncomfortable, right leg pain, coughing (with stooling each time), weak) - Head Exam Head Exam: NORMAL INSPECTION - ENT Exam ENT Exam: Mucous Membranes Moist - Neck Exam Neck Exam: Normal Inspection Additional comments: Right subclavian Permacath intact and working well. - Respiratory Exam Respiratory Exam: Clear to Ausculation Bilateral, NORMAL BREATHING PATTERN - Cardiovascular Exam Cardiovascular Exam: REGULAR RHYTHM - GI/Abdominal Exam GI & Abdominal Exam: Soft, Normal Bowel Sounds - Rectal Exam Additional comments: Weak sphincter, ampulla empty except for some mush brown stool. - Extremities Exam Additional comments: Puffy left hand (minus 3 fingers), no open lesions. Weak pulse R hand (minus 3rd finger) warm and without lesions. Weak pulse L BK residual limb - soft, warm, non-tender, and with no lesions. R calf is tender and muscles feel taut. The lima is much much warmer than the knee. Right foot/heel dressing is intact. On previous examinations there is necrotic tissue covering the heel (about 3 cm or so in diameter) surrounded by a ring of fibrous tissue. Beneath this heel covering is soft, mushy feeling tissue. R upper arm PCC line is intact. - Back Exam Additional comments: Multiple areas of denuded skin in sacral area (wound care consult requested). - Neurological Exam Neurological Exam: Alert, Awake, CN II-XII Intact, Oriented x3 - Psychiatric Exam Psychiatric exam: Normal Affect, Normal Mood - Skin Additional comments: See back and see extremities. Excoriations beneath breasts are responding to cleansing, Nystatin cream, and then calcium alginate dressings. Assessment and Plan (1) ESRD (end stage renal disease) on dialysis Assessment & Plan: On hemodialysis 3x/wk - to receive 2 units of rbcs with tomorrow's dialysis. Status: Chronic (2) DM type 2 (diabetes mellitus, type 2) Assessment & Plan: Management per Dr. Ambrose. stable Status: Chronic (3) Coagulopathy Assessment & Plan: Continues on Eliquis and aspirin. Status: Chronic (4) Peripheral arterial occlusive disease Assessment & Plan: SEE SUBJECTIVE FOR HISTORY - VASCULAR CONSULTATION IS BEING REQUESTED. Status: Chronic (5) Ulcer of right heel Assessment & Plan: Podiatry is continuing with local wound care, antibiotics are being adjusted per Dr. Lemon. The question going forward is whether this foot/heel can be saved, whether saving it will benefit the patient, whether the surgical risks are too great. Reminder: Primum non nocere. Status: Resolved (6) SIRS (systemic inflammatory response syndrome) Assessment & Plan: Resolve but could recur if the source of infection is not eliminated. Status: Acute (7) Pneumonia Assessment & Plan: Resolving. Status: Acute (8) Menorrhagia Assessment & Plan: Continue on Provera to complete 10 day course, and transfuse rbcs. Status: Acute (9) Decubitus ulcer of sacral region, stage 2 Assessment & Plan: Needs wound care consult and to get patient OOB to chair.. Status: Acute
--- NOTE | 2016-09-12 14:06 | PQF GENQUE ---
Dr. Thomas, In agreement with Sites of the Pressure ulcers documented on 09/12: by the Wound RN as follows?: Pressure Ulcer Assessment: Right Upper Medial Buttocks: Stage 2 and Gluteal Cleft: Stage 2 OR: Disagree OR: Unable to determine OR: Other explanation of clinical finding Attending: progress note: diagnoses include: Decubitus ulcer of sacral region, stage 2 This form is a permanent part of the medical record Clarification of your documentation is requested to better reflect the severity of illness and intensity of treatment of your patient. Indicators present [] Specify: [] [] Specify: [] [] Specify: [] [] Specify: [] Location in the medical record that reflects the above clinical findings: [] Treatment Provided: [] PHYSICIAN'S RESPONSE Based on your medical judgment of the clinical indicators outlined above please clarify the following: [] Practitioner response [] If unable to determine, please check the box, sign and date. Present On Admission (POA) Indicator: [] Present at the time of admission [] Not present at the time of admission [] Clinically Undetermined In responding to this query, please exercise your independent professional judgment. The fact that a question is asked does not imply that any particular answer is desired or expected. Thank you for your clarification on this documentation. If you have any questions please call. * Thank you, Sandra Reina RN BSN ext. #[phone] MTDD
--- NOTE | 2016-09-12 15:16 | CP.PCM.PN ---
Subjective - Date & Time of Evaluation Date of Evaluation: 09/12/16 Time of Evaluation: 14:45 - Subjective Subjective: Patient was seen and examined at the bedside. Objective - Vital Signs/Intake and Output Vital Signs (last 24 hours): Temp Pulse Resp BP Pulse Ox 97.8 F 110 H 20 117/80 94 L 09/12/16 12:00 09/12/16 12:00 09/12/16 12:00 09/12/16 12:00 09/12/16 12:00 Intake and Output: 09/12/16 09/12/16 06:59 18:59 Intake Total 580 500 Output Total 2500 Balance -1920 500 - Medications Medications: Current Medications Acetaminophen (Tylenol 325mg Tab) 650 mg PO Q4 PRN PRN Reason: Fever >100.4 F Last Admin: 08/28/16 15:23 Dose: 650 mg Acetaminophen (Tylenol 325mg Tab) 650 mg PO Q4 PRN PRN Reason: Pain, moderate (4-7) Last Admin: 09/03/16 03:33 Dose: 650 mg Albuterol/Ipratropium (Duoneb 3 Mg/0.5 Mg (3 Ml) Ud) 3 ml INH RQ4 PRN PRN Reason: Shortness of Breath Last Admin: 09/05/16 02:15 Dose: 3 ml Apixaban (Eliquis) 5 mg PO BID [facility] PRN Reason: Protocol Last Admin: 09/12/16 09:42 Dose: 5 mg Aspirin (Ecotrin) 81 mg PO DAILY [facility] Last Admin: 09/12/16 09:41 Dose: 81 mg Atorvastatin Calcium (Lipitor) 40 mg PO DAILY [facility] Last Admin: 09/12/16 09:45 Dose: 40 mg Benzonatate (Tessalon Perles) 200 mg PO TID PRN PRN Reason: Cough Last Admin: 09/07/16 22:00 Dose: 200 mg Cinacalcet (Sensipar) 30 mg PO DAILY [facility] Last Admin: 09/12/16 09:47 Dose: 30 mg Epoetin Tha (Procrit) 20,000 unit IV MWF [facility] Last Admin: 09/11/16 16:34 Dose: 20,000 unit Guaifenesin/Codeine Phosphate (Robitussin W/Codeine) 10 ml PO Q4 PRN PRN Reason: Cough Last Admin: 09/11/16 22:56 Dose: 10 ml Hydrocortisone (Anusol-Hc) 1 applic [place] BID [facility] Last Admin: 09/12/16 09:41 Dose: 1 applic Piperacillin Sod/Tazobactam (Sod 2.25 gm/ Sodium Chloride) 100 mls @ 100 mls/ hr IVPB Q12 [facility] Last Admin: 09/12/16 09:47 Dose: 100 mls/hr Linezolid (Zyvox 600mg/300ml D5w) 300 mls @ 300 mls/hr IVPB Q12 [facility] Last Admin: 09/12/16 09:48 Dose: 300 mls/hr Meropenem 500 mg/ Sodium (Chloride) 100 mls @ 100 mls/hr IVPB DAILY [facility] Last Admin: 09/12/16 09:45 Dose: 100 mls/hr Amikacin Sulfate 250 mg/ (Sodium Chloride) 101 mls @ 100.609 mls/hr IVPB MWF [facility] Last Admin: 09/11/16 08:53 Dose: 100.609 mls/hr Insulin Detemir (Levemir) 28 units SC HS [facility] Last Admin: 09/11/16 22:54 Dose: 28 u Insulin Human Lispro (Humalog) 8 units SC AC [facility] Last Admin: 09/12/16 12:11 Dose: 8 units Lidocaine (Lidoderm) 1 ea TD DAILY [facility] Last Admin: 09/12/16 09:44 Dose: 1 ea Medroxyprogesterone Acetate (Provera) 10 mg PO DAILY [facility] Stop: 09/17/16 09:01 Last Admin: 09/12/16 09:47 Dose: 10 mg Nystatin (Mycostatin Oint) 1 applic TOP TID [facility] Last Admin: 09/12/16 12:12 Dose: 1 applic Ondansetron HCl (Zofran Inj) 4 mg IVP Q6 PRN PRN Reason: Nausea/Vomiting Last Admin: 09/02/16 12:11 Dose: 4 mg Pantoprazole Sodium (Protonix Ec Tab) 40 mg PO DAILY [facility] Last Admin: 09/12/16 09:46 Dose: 40 mg Sevelamer HCl (Renagel) 1,600 mg PO TID [facility] Last Admin: 09/12/16 12:13 Dose: 1,600 mg Topiramate (Topamax) 50 mg PO BID [facility] Last Admin: 09/12/16 09:47 Dose: 50 mg Vitamin B Complex/Vit C/Folic Acid (Nephro-Ajay) 1 tab PO DAILY [facility] Last Admin: 09/12/16 09:46 Dose: 1 tab - Labs Labs: 09/12/16 06:43 09/12/16 06:43 PT 16.5 SECONDS (9.6-11.2) H 08/28/16 16:11 INR 1.59 (0.92-1.08) H 08/28/16 16:11 APTT 38.7 SECONDS (23.3-32.5) H 08/28/16 16:11 - Constitutional Appears: Non-toxic, No Acute Distress - Head Exam Head Exam: ATRAUMATIC, NORMAL INSPECTION, NORMOCEPHALIC - Eye Exam Eye Exam: EOMI, Normal appearance, PERRL Pupil Exam: NORMAL ACCOMODATION, PERRL - ENT Exam ENT Exam: Mucous Membranes Moist, Normal Exam - Neck Exam Neck Exam: Full ROM, Normal Inspection - Respiratory Exam Respiratory Exam: NORMAL BREATHING PATTERN - Cardiovascular Exam Cardiovascular Exam: Tachycardia, +S1, +S2 - GI/Abdominal Exam GI & Abdominal Exam: Soft, Normal Bowel Sounds - Rectal Exam Rectal Exam: Deferred - Extremities Exam Additional comments: right foot with distal dry gangreene, and heel ulcer, no drainage, left leg BKA - Neurological Exam Neurological Exam: Alert, Awake - Psychiatric Exam Psychiatric exam: Normal Affect, Normal Mood - Skin Skin Exam: Dry, Intact, Normal Color, Warm Assessment and Plan - Assessment and Plan (Free Text) Assessment: 46 y.o. female with dry gangreene of the right distal foot Plan: - Continue antibiotics - Pain control - No general surgery intervention at present time
--- NOTE | 2016-09-12 16:09 | PN ---
DATE: 09/12/2016 ROOM: 421 ICU. SUBJECTIVE: This is a 46-year-old female with recent uncontrolled type 2 insulin-requiring diabetes, now being followed closely for metabolic management. She is also undergoing IV antibiotic managemen t for gram-negative bacteremia with an underlying right nonhealing neuropathic ulceration with underl paula osteomyelitis. Her latest chemistry showed a BUN of 15, sodium 135, potassium 3.9, chloride 98, CO2 28, glucose 113, and creatinine 4.3. So, at this time, we will continue the same basal and bolu s insulin regimen as given with Levemir given as 28 units subQ at bedtime daily and Humalog 8 units s ubQ t.i.d. before meals as ordered. We will titrate incrementally as indicated to optimize metabolic control. We will follow. Irene Ambrose MD cc: [phone] TT: 09/12/2016 16:09:08 Confirmation # [id number] Dictation # [id number] ravinder
[2016-09-12] MEDS: Insulin Detemir 100 Units/ml Inj SC SCH (22:16)
--- NOTE | 2016-09-12 23:41 | CP.PCM.PN ---
Subjective - Date & Time of Evaluation Date of Evaluation: 09/12/16 Time of Evaluation: 19:00 - Subjective Subjective: Patient is receiving Antibiotics for her Right Foot Infection. A report is mentioning a Right Foot distal dry Gangrene. Patient has no seizures on Topamax 50 mg Q 12 hrs. Objective - Vital Signs/Intake and Output Vital Signs (last 24 hours): Temp Pulse Resp BP Pulse Ox 98.4 F 117 H 18 126/88 100 09/12/16 20:00 09/12/16 20:00 09/12/16 20:00 09/12/16 20:00 09/12/16 20:00 Intake and Output: 09/12/16 09/13/16 18:59 06:59 Intake Total 500 Balance 500 - Medications Medications: Current Medications Acetaminophen (Tylenol 325mg Tab) 650 mg PO Q4 PRN PRN Reason: Fever >100.4 F Last Admin: 08/28/16 15:23 Dose: 650 mg Acetaminophen (Tylenol 325mg Tab) 650 mg PO Q4 PRN PRN Reason: Pain, moderate (4-7) Last Admin: 09/03/16 03:33 Dose: 650 mg Albuterol/Ipratropium (Duoneb 3 Mg/0.5 Mg (3 Ml) Ud) 3 ml INH RQ4 PRN PRN Reason: Shortness of Breath Last Admin: 09/05/16 02:15 Dose: 3 ml Apixaban (Eliquis) 5 mg PO BID [facility] PRN Reason: Protocol Last Admin: 09/12/16 17:22 Dose: 5 mg Aspirin (Ecotrin) 81 mg PO DAILY [facility] Last Admin: 09/12/16 09:41 Dose: 81 mg Atorvastatin Calcium (Lipitor) 40 mg PO DAILY [facility] Last Admin: 09/12/16 09:45 Dose: 40 mg Benzonatate (Tessalon Perles) 200 mg PO TID PRN PRN Reason: Cough Last Admin: 09/07/16 22:00 Dose: 200 mg Cinacalcet (Sensipar) 30 mg PO DAILY [facility] Last Admin: 09/12/16 09:47 Dose: 30 mg Epoetin Tha (Procrit) 20,000 unit IV MWF [facility] Last Admin: 09/11/16 16:34 Dose: 20,000 unit Guaifenesin/Codeine Phosphate (Robitussin W/Codeine) 10 ml PO Q4 PRN PRN Reason: Cough Last Admin: 09/11/16 22:56 Dose: 10 ml Hydrocortisone (Anusol-Hc) 1 applic [place] BID [facility] Last Admin: 09/12/16 16:16 Dose: 1 applic Piperacillin Sod/Tazobactam (Sod 2.25 gm/ Sodium Chloride) 100 mls @ 100 mls/ hr IVPB Q12 [facility] Last Admin: 09/12/16 20:04 Dose: 100 mls/hr Linezolid (Zyvox 600mg/300ml D5w) 300 mls @ 300 mls/hr IVPB Q12 [facility] Last Admin: 09/12/16 21:09 Dose: 300 mls/hr Meropenem 500 mg/ Sodium (Chloride) 100 mls @ 100 mls/hr IVPB DAILY [facility] Last Admin: 09/12/16 09:45 Dose: 100 mls/hr Amikacin Sulfate 250 mg/ (Sodium Chloride) 101 mls @ 100.609 mls/hr IVPB MWF [facility] Last Admin: 09/11/16 08:53 Dose: 100.609 mls/hr Insulin Detemir (Levemir) 28 units SC HS [facility] Last Admin: 09/12/16 22:16 Dose: 28 u Insulin Human Lispro (Humalog) 8 units SC AC [facility] Last Admin: 09/12/16 17:23 Dose: 8 units Lidocaine (Lidoderm) 1 ea TD DAILY [facility] Last Admin: 09/12/16 09:44 Dose: 1 ea Medroxyprogesterone Acetate (Provera) 10 mg PO DAILY [facility] Stop: 09/17/16 09:01 Last Admin: 09/12/16 09:47 Dose: 10 mg Nystatin (Mycostatin Oint) 1 applic TOP TID [facility] Last Admin: 09/12/16 17:24 Dose: 1 applic Ondansetron HCl (Zofran Inj) 4 mg IVP Q6 PRN PRN Reason: Nausea/Vomiting Last Admin: 09/02/16 12:11 Dose: 4 mg Pantoprazole Sodium (Protonix Ec Tab) 40 mg PO DAILY [facility] Last Admin: 09/12/16 09:46 Dose: 40 mg Sevelamer HCl (Renagel) 1,600 mg PO TID [facility] Last Admin: 09/12/16 16:19 Dose: 1,600 mg Topiramate (Topamax) 50 mg PO BID [facility] Last Admin: 09/12/16 16:19 Dose: 50 mg Vitamin B Complex/Vit C/Folic Acid (Nephro-Ajay) 1 tab PO DAILY [facility] Last Admin: 09/12/16 09:46 Dose: 1 tab - Labs Labs: 09/12/16 06:43 09/12/16 06:43 PT 16.5 SECONDS (9.6-11.2) H 08/28/16 16:11 INR 1.59 (0.92-1.08) H 08/28/16 16:11 APTT 38.7 SECONDS (23.3-32.5) H 08/28/16 16:11 Assessment and Plan (1) Diabetes Status: Chronic (2) ESRD (end stage renal disease) Status: Chronic (3) Cellulitis of leg Status: Acute (4) Hyperlipidemia Status: Acute (5) Back pain Status: Acute (6) Bacteremia due to Gram-negative bacteria Status: Acute (7) Diabetes mellitus type 2 with peripheral artery disease Status: Acute (8) PVD (peripheral vascular disease) Status: Acute
--- NOTE | 2016-09-13 06:53 | CP.PCM.PN ---
Subjective - Date & Time of Evaluation Date of Evaluation: 09/13/16 Time of Evaluation: 07:00 - Subjective Subjective: 46 yo female patient seen at bedside in ICU regarding heel eschar, and leg cellulits. Pt seen resting comfortably in bed at time of visit. Patient states that she has had no major overnight events. She denies recent f/n/v/c/sob/cp at this time. Reports minor pain in her bilateral legs an thigh. She continues to sleep and eat well. Still reports cough, though she notes improvement in symptoms. Patient's multipodus boot is intact to right heel at time of visit. Objective - Vital Signs/Intake and Output Vital Signs (last 24 hours): Temp Pulse Resp BP Pulse Ox 99.5 F 109 H 16 115/69 100 09/13/16 04:00 09/13/16 04:00 09/13/16 04:00 09/13/16 04:00 09/13/16 04:00 Intake and Output: 09/12/16 09/13/16 18:59 06:59 Intake Total 500 460 Balance 500 460 - Medications Medications: Current Medications Acetaminophen (Tylenol 325mg Tab) 650 mg PO Q4 PRN PRN Reason: Fever >100.4 F Last Admin: 08/28/16 15:23 Dose: 650 mg Acetaminophen (Tylenol 325mg Tab) 650 mg PO Q4 PRN PRN Reason: Pain, moderate (4-7) Last Admin: 09/03/16 03:33 Dose: 650 mg Albuterol/Ipratropium (Duoneb 3 Mg/0.5 Mg (3 Ml) Ud) 3 ml INH RQ4 PRN PRN Reason: Shortness of Breath Last Admin: 09/05/16 02:15 Dose: 3 ml Apixaban (Eliquis) 5 mg PO BID [facility] PRN Reason: Protocol Last Admin: 09/12/16 17:22 Dose: 5 mg Aspirin (Ecotrin) 81 mg PO DAILY [facility] Last Admin: 09/12/16 09:41 Dose: 81 mg Atorvastatin Calcium (Lipitor) 40 mg PO DAILY [facility] Last Admin: 09/12/16 09:45 Dose: 40 mg Benzonatate (Tessalon Perles) 200 mg PO TID PRN PRN Reason: Cough Last Admin: 09/07/16 22:00 Dose: 200 mg Cinacalcet (Sensipar) 30 mg PO DAILY [facility] Last Admin: 09/12/16 09:47 Dose: 30 mg Epoetin Tha (Procrit) 20,000 unit IV MWF [facility] Last Admin: 09/11/16 16:34 Dose: 20,000 unit Guaifenesin/Codeine Phosphate (Robitussin W/Codeine) 10 ml PO Q4 PRN PRN Reason: Cough Last Admin: 09/11/16 22:56 Dose: 10 ml Hydrocortisone (Anusol-Hc) 1 applic KS BID [facility] Last Admin: 09/12/16 16:16 Dose: 1 applic Piperacillin Sod/Tazobactam (Sod 2.25 gm/ Sodium Chloride) 100 mls @ 100 mls/ hr IVPB Q12 [facility] Last Admin: 09/12/16 20:04 Dose: 100 mls/hr Linezolid (Zyvox 600mg/300ml D5w) 300 mls @ 300 mls/hr IVPB Q12 [facility] Last Admin: 09/12/16 21:09 Dose: 300 mls/hr Meropenem 500 mg/ Sodium (Chloride) 100 mls @ 100 mls/hr IVPB DAILY [facility] Last Admin: 09/12/16 09:45 Dose: 100 mls/hr Amikacin Sulfate 250 mg/ (Sodium Chloride) 101 mls @ 100.609 mls/hr IVPB MWF [facility] Last Admin: 09/11/16 08:53 Dose: 100.609 mls/hr Insulin Detemir (Levemir) 28 units SC HS [facility] Last Admin: 09/12/16 22:16 Dose: 28 u Insulin Human Lispro (Humalog) 8 units SC AC [facility] Last Admin: 09/12/16 17:23 Dose: 8 units Lidocaine (Lidoderm) 1 ea TD DAILY [facility] Last Admin: 09/12/16 09:44 Dose: 1 ea Medroxyprogesterone Acetate (Provera) 10 mg PO DAILY [facility] Stop: 09/17/16 09:01 Last Admin: 09/12/16 09:47 Dose: 10 mg Nystatin (Mycostatin Oint) 1 applic TOP TID [facility] Last Admin: 09/12/16 17:24 Dose: 1 applic Ondansetron HCl (Zofran Inj) 4 mg IVP Q6 PRN PRN Reason: Nausea/Vomiting Last Admin: 09/02/16 12:11 Dose: 4 mg Pantoprazole Sodium (Protonix Ec Tab) 40 mg PO DAILY [facility] Last Admin: 09/12/16 09:46 Dose: 40 mg Sevelamer HCl (Renagel) 1,600 mg PO TID [facility] Last Admin: 09/12/16 16:19 Dose: 1,600 mg Topiramate (Topamax) 50 mg PO BID [facility] Last Admin: 09/12/16 16:19 Dose: 50 mg Vitamin B Complex/Vit C/Folic Acid (Nephro-Ajay) 1 tab PO DAILY [facility] Last Admin: 09/12/16 09:46 Dose: 1 tab - Labs Labs: 09/12/16 06:43 09/12/16 06:43 PT 16.5 SECONDS (9.6-11.2) H 08/28/16 16:11 INR 1.59 (0.92-1.08) H 08/28/16 16:11 APTT 38.7 SECONDS (23.3-32.5) H 08/28/16 16:11 - Constitutional Appears: No Acute Distress, Chronically Ill - Extremities Exam Additional comments: Thigh Pain illicited bilaterally upon palpation. Right lower extremity exam: VASC- DP/PT pulses non-palpable, capillary refill < 5 sec to digits x 5, mild 1 + pitting edema noted to anterior aspect of leg and dorsum of foot, new signs of decreased edema with return of relaxes skin tension lines. Leg callor present , absent erythema. NEURO-gross pedal sensation is diminished DERM- Superficial dry eschar noted to plantar aspect of heel, with noted sanguinous crust along periphery, with noted serous exudate crust, absent purulence. Absent drainage on compression. Iincreased warmth noted, no local or ascending erythema, no acute signs infection. ORTHO- Mild tenderness noted to distal posterior and lateral legs today, severe varus deformity with dislocation of ankle noted. Pedal muscle strength of 4 major pedal muscle groups is: 4/5 for posterior group and 3/5 for anterior, lateral, and medial muscle groups. - Neurological Exam Neurological Exam: Alert, Awake, Oriented x3 - Psychiatric Exam Psychiatric exam: Normal Affect, Normal Mood Assessment and Plan - Assessment and Plan (Free Text) Assessment: 46 yo female patient w/ pmhx of HTN, ESRD (on dialysis), coagulopathy, DM, charcot right foot PVD w/ stable dry eschar of right heel & cellulits. Plan: -Pt S&E at bedside. Chart, labs, vitals reviewed: afebrile, -Discussed plan w/ Dr. Pruett -Dressing changed with wet to dry DSD, multipodus boot reapplied -c/w IV abx per ID -Hgb= 7.5, to potentiallybe transfused 2 units of PRBC. -Will continue to follow while patient remains in house
[2016-09-13] MEDS: Insulin Lispro (humaLOG) 100 Units/ml Inj SC SCH ×4 (08:00→21:49)
[2016-09-13] MEDS: Multivitamin Vitamin B Complex (Nephro-Vite) Tab PO SCH (08:38)
[2016-09-13] MEDS: Pantoprazole 40 mg EC Tab PO SCH (08:39)
[2016-09-13] MEDS: Lidocaine 5% Patch TD SCH (08:39)
[2016-09-13] MEDS: Linezolid 600 mg in D5W 300 ml 300 ML IVPB SCH ×2 (08:40→20:45)
[2016-09-13] MEDS: Meropenem 500 MG in Sodium Chloride 0.9% 100 ML IVPB SCH (08:44)
[2016-09-13] MEDS: Epoetin Alfa 20000 UNIT/ML Inj IV SCH ×2 (08:46→10:07)
[2016-09-13] MEDS: Hydrocortisone 2.5% (Rectal) CREAM PR SCH ×2 (08:48→16:50)
[2016-09-13] MEDS: guaiFENesin-Codeine 100-10mg/5ml Syrup (5 ml) UD PO PRN (09:07)
[2016-09-13] MEDS: Nystatin Ointment TOP SCH ×3 (09:35→16:51)
--- NOTE | 2016-09-13 09:38 | RAD ---
HISTORY: pneumonia COMPARISON: 09/04/2016. FINDINGS: LUNGS: Poor inspiration with low lung volumes, mild crowded bronchovascular markings and mild bibasilar atelectasis. . Slightly improved pulmonary venous congestive changes questionable small bilateral effusions. No change right subclavian large-bore central venous line PLEURA: No pneumothorax apparent. CARDIOVASCULAR: In heart size upper limits of normal. OSSEOUS STRUCTURES: No significant abnormalities. VISUALIZED UPPER ABDOMEN: Normal. OTHER FINDINGS: None. IMPRESSION: Poor inspiration with low lung volumes, mild crowded bronchovascular markings and mild bibasilar atelectasis. . Slightly improved pulmonary venous congestive changes questionable small bilateral effusions.
--- NOTE | 2016-09-13 10:46 | CP.PCM.PN ---
Subjective - Date & Time of Evaluation Date of Evaluation: 09/20/16 Time of Evaluation: 10:30 - Subjective Subjective: Currently on dialysis. Feels better BP 147/90 Objective - Vital Signs/Intake and Output Vital Signs (last 24 hours): Temp Pulse Resp BP Pulse Ox 99.5 F 109 H 16 115/69 100 09/13/16 04:00 09/13/16 04:00 09/13/16 04:00 09/13/16 04:00 09/13/16 04:00 Intake and Output: 09/13/16 09/13/16 06:59 18:59 Intake Total 460 Balance 460 - Medications Medications: Current Medications Acetaminophen (Tylenol 325mg Tab) 650 mg PO Q4 PRN PRN Reason: Fever >100.4 F Last Admin: 08/28/16 15:23 Dose: 650 mg Acetaminophen (Tylenol 325mg Tab) 650 mg PO Q4 PRN PRN Reason: Pain, moderate (4-7) Last Admin: 09/03/16 03:33 Dose: 650 mg Albuterol/Ipratropium (Duoneb 3 Mg/0.5 Mg (3 Ml) Ud) 3 ml INH RQ4 PRN PRN Reason: Shortness of Breath Last Admin: 09/05/16 02:15 Dose: 3 ml Apixaban (Eliquis) 5 mg PO BID [facility] PRN Reason: Protocol Last Admin: 09/13/16 08:37 Dose: 5 mg Aspirin (Ecotrin) 81 mg PO DAILY [facility] Last Admin: 09/13/16 08:38 Dose: 81 mg Atorvastatin Calcium (Lipitor) 40 mg PO DAILY [facility] Last Admin: 09/13/16 08:39 Dose: 40 mg Benzonatate (Tessalon Perles) 200 mg PO TID PRN PRN Reason: Cough Last Admin: 09/07/16 22:00 Dose: 200 mg Cinacalcet (Sensipar) 30 mg PO DAILY [facility] Last Admin: 09/13/16 08:38 Dose: 30 mg Epoetin Tha (Procrit) 20,000 unit IV MWF [facility] Last Admin: 09/13/16 10:07 Dose: 20,000 unit Guaifenesin/Codeine Phosphate (Robitussin W/Codeine) 10 ml PO Q4 PRN PRN Reason: Cough Last Admin: 09/13/16 09:07 Dose: 10 ml Hydrocortisone (Anusol-Hc) 1 applic DC BID [facility] Last Admin: 09/13/16 08:48 Dose: 1 applic Piperacillin Sod/Tazobactam (Sod 2.25 gm/ Sodium Chloride) 100 mls @ 100 mls/ hr IVPB Q12 [facility] Last Admin: 09/13/16 08:42 Dose: 100 mls/hr Linezolid (Zyvox 600mg/300ml D5w) 300 mls @ 300 mls/hr IVPB Q12 [facility] Last Admin: 09/13/16 08:40 Dose: 300 mls/hr Meropenem 500 mg/ Sodium (Chloride) 100 mls @ 100 mls/hr IVPB DAILY [facility] Last Admin: 09/13/16 08:44 Dose: 100 mls/hr Amikacin Sulfate 250 mg/ (Sodium Chloride) 101 mls @ 100.609 mls/hr IVPB MWF [facility] Last Admin: 09/13/16 08:41 Dose: 100.609 mls/hr Insulin Detemir (Levemir) 28 units SC HS [facility] Last Admin: 09/12/16 22:16 Dose: 28 u Insulin Human Lispro (Humalog) 8 units SC AC [facility] Last Admin: 09/13/16 08:00 Dose: 8 units Lidocaine (Lidoderm) 1 ea TD DAILY [facility] Last Admin: 09/13/16 08:39 Dose: 1 ea Medroxyprogesterone Acetate (Provera) 10 mg PO DAILY [facility] Stop: 09/17/16 09:01 Last Admin: 09/13/16 08:38 Dose: 10 mg Nystatin (Mycostatin Oint) 1 applic TOP TID [facility] Last Admin: 09/12/16 17:24 Dose: 1 applic Ondansetron HCl (Zofran Inj) 4 mg IVP Q6 PRN PRN Reason: Nausea/Vomiting Last Admin: 09/02/16 12:11 Dose: 4 mg Pantoprazole Sodium (Protonix Ec Tab) 40 mg PO DAILY [facility] Last Admin: 09/13/16 08:39 Dose: 40 mg Sevelamer HCl (Renagel) 1,600 mg PO TID [facility] Last Admin: 09/13/16 08:38 Dose: 1,600 mg Topiramate (Topamax) 50 mg PO BID [facility] Last Admin: 09/13/16 08:47 Dose: 50 mg Vitamin B Complex/Vit C/Folic Acid (Nephro-Ajay) 1 tab PO DAILY [facility] Last Admin: 09/13/16 08:38 Dose: 1 tab - Labs Labs: 09/12/16 06:43 09/12/16 06:43 PT 16.5 SECONDS (9.6-11.2) H 08/28/16 16:11 INR 1.59 (0.92-1.08) H 08/28/16 16:11 APTT 38.7 SECONDS (23.3-32.5) H 08/28/16 16:11 - Respiratory Exam Additional comments: Lungs clear - Cardiovascular Exam Cardiovascular Exam: REGULAR RHYTHM Assessment and Plan - Assessment and Plan (Free Text) Assessment: ESRD Sepsis Anemia IDDM Plan: HD per schedule Epogen dose was increased. Monitor Hb
--- NOTE | 2016-09-13 11:27 | PN ---
DATE: 09/13/2016 LOCATION: ICU room 421. SUBJECTIVE: This is a 46-year-old female with recent gram negative bacteremia related to underlying ____ right heel ulceration with osteomyelitis and is now being followed closely for metabolic managem ent. Her glycemic levels are fluctuating, but much improved at this time and the latest glucose leve ls have ranged from 121 to 188 mg/dL. Her latest chemistries include a BUN of 15, sodium 135, potass ium 3.____ CO2 28, glucose 115, and creatinine 4.3. So, at this time, we will continue the same basa l and bolus insulin regimen as ordered with Humalog given as 8 units subQ t.i.d. before meals as give n. We will also continue the same basal insulin with Levemir given as 28 units subQ at bedtime daily ____. We will titrate incrementally as indicated to optimize metabolic control. Will follow and ad vise accordingly. Irene Ambrose MD cc: [phone] TT: 09/13/2016 11:26:25 Confirmation # [id number] Dictation # [id number]
--- NOTE | 2016-09-13 15:26 | CP.PCM.PN ---
Subjective - Date & Time of Evaluation Date of Evaluation: 09/13/16 Time of Evaluation: 15:23 - Subjective Subjective: Patient was just seen by vascular certified surgical technician Dr. Skyler Doran ( office phone [phone]). It is his opinion that there is definitely osteomyelitis involving the right heel/foot. He reviewed the CT angiogram and believes there is adequate vasculature to support a right BK amputation. He fears that failure to remove the source of infection will risk the patient's life. He also stated that he favors internal jugular Permacath over subclavian because there is less interference with circulation to the arm. In the perioperative period he recommended use of argatroban for anticoagulation. I told him he should speak with Dr. Evita Shepard about this, and pharmacy would need some advance notice. I will reach out to general surgery to request a conference between the general and the vascular surgeons. Meanwhile we will continue local wound care and iv antibiotics. Patient continues to have severe pain in the right calf (which is much warmer than the knee). This seems worse than yesterday. She had temp of 99.5 twice last night. As noted before her wbc is elevated at 15K with a left shift and her alkaline phosphatase is mildly elevated (with normal transaminases and bilirubin). Patient had transfusion of 2 units of red blood cells and feels much better. The menstrual bleeding has subsided with the institution of Provera orally. She underwent an uneventful hemodialysis today. Dr. Ambrose's note appreciated. 3pm glucose was 129. Still coughing. CXR of 09/12 showed poor inspiratory effort with low lung volumes. Decreased vascular congestion. Possible small bilat pleural effusions. Heart size is at upper limits of normal. To continue pulmonary therapies and await further recommenations by Dr. Flores. Coagulopathy - thrombophilia. I renewed the Eliquis (and aspirin). I left a message for Dr. Maguire to consider reducing or discontinuing the Topamax since the patient is no longer septic and there has been no further seizure activity. Dr. Lemon is managing the antibiotic therapy. There is a positive fungal culture for the most recent heel swab: 09/10/16 13:56 Other: Right heel Gram Stain - Final A few gram negative rods. No wbc's seen. 09/10/16 13:56 Other: Right heel Wound Culture - Final Eneida Parapsilosis Objective - Vital Signs/Intake and Output Vital Signs (last 24 hours): Temp Pulse Resp BP Pulse Ox 98.4 F 121 H 25 H 177/95 H 100 09/13/16 12:00 09/13/16 12:00 09/13/16 12:00 09/13/16 12:00 09/13/16 12:00 Intake and Output: 09/13/16 09/13/16 06:59 18:59 Intake Total 460 100 Output Total 2000 Balance 460 -1900 - Medications Medications: Current Medications Acetaminophen (Tylenol 325mg Tab) 650 mg PO Q4 PRN PRN Reason: Fever >100.4 F Last Admin: 08/28/16 15:23 Dose: 650 mg Acetaminophen (Tylenol 325mg Tab) 650 mg PO Q4 PRN PRN Reason: Pain, moderate (4-7) Last Admin: 09/03/16 03:33 Dose: 650 mg Albuterol/Ipratropium (Duoneb 3 Mg/0.5 Mg (3 Ml) Ud) 3 ml INH RQ4 PRN PRN Reason: Shortness of Breath Last Admin: 09/05/16 02:15 Dose: 3 ml Apixaban (Eliquis) 5 mg PO BID [facility] PRN Reason: Protocol Aspirin (Ecotrin) 81 mg PO DAILY [facility] Last Admin: 09/13/16 08:38 Dose: 81 mg Atorvastatin Calcium (Lipitor) 40 mg PO DAILY [facility] Last Admin: 09/13/16 08:39 Dose: 40 mg Benzonatate (Tessalon Perles) 200 mg PO TID PRN PRN Reason: Cough Last Admin: 09/13/16 12:37 Dose: 200 mg Cinacalcet (Sensipar) 30 mg PO DAILY [facility] Last Admin: 09/13/16 08:38 Dose: 30 mg Epoetin Tha (Procrit) 20,000 unit IV MWF [facility] Last Admin: 09/13/16 10:07 Dose: 20,000 unit Guaifenesin/Codeine Phosphate (Robitussin W/Codeine) 10 ml PO Q6 PRN PRN Reason: Cough Hydrocortisone (Anusol-Hc) 1 applic NE BID [facility] Last Admin: 09/13/16 08:48 Dose: 1 applic Piperacillin Sod/Tazobactam (Sod 2.25 gm/ Sodium Chloride) 100 mls @ 100 mls/ hr IVPB Q12 [facility] Last Admin: 09/13/16 08:42 Dose: 100 mls/hr Linezolid (Zyvox 600mg/300ml D5w) 300 mls @ 300 mls/hr IVPB Q12 [facility] Last Admin: 09/13/16 08:40 Dose: 300 mls/hr Meropenem 500 mg/ Sodium (Chloride) 100 mls @ 100 mls/hr IVPB DAILY [facility] Last Admin: 09/13/16 08:44 Dose: 100 mls/hr Amikacin Sulfate 250 mg/ (Sodium Chloride) 101 mls @ 100.609 mls/hr IVPB MWF [facility] Last Admin: 09/13/16 08:41 Dose: 100.609 mls/hr Insulin Detemir (Levemir) 28 units SC HS [facility] Last Admin: 09/12/16 22:16 Dose: 28 u Insulin Human Lispro (Humalog) 8 units SC AC [facility] Last Admin: 09/13/16 12:33 Dose: 8 units Lidocaine (Lidoderm) 1 ea TD DAILY [facility] Last Admin: 09/13/16 08:39 Dose: 1 ea Medroxyprogesterone Acetate (Provera) 10 mg PO DAILY [facility] Stop: 09/17/16 09:01 Last Admin: 09/13/16 08:38 Dose: 10 mg Nystatin (Mycostatin Oint) 1 applic TOP TID [facility] Last Admin: 09/13/16 12:35 Dose: 1 applic Ondansetron HCl (Zofran Inj) 4 mg IVP Q6 PRN PRN Reason: Nausea/Vomiting Last Admin: 09/02/16 12:11 Dose: 4 mg Pantoprazole Sodium (Protonix Ec Tab) 40 mg PO DAILY [facility] Last Admin: 09/13/16 08:39 Dose: 40 mg Sevelamer HCl (Renagel) 1,600 mg PO TID [facility] Last Admin: 09/13/16 12:36 Dose: 1,600 mg Topiramate (Topamax) 50 mg PO BID [facility] Last Admin: 09/13/16 08:47 Dose: 50 mg Vitamin B Complex/Vit C/Folic Acid (Nephro-Ajay) 1 tab PO DAILY [facility] Last Admin: 09/13/16 08:38 Dose: 1 tab - Labs Labs: 09/12/16 06:43 09/12/16 06:43 PT 16.5 SECONDS (9.6-11.2) H 08/28/16 16:11 INR 1.59 (0.92-1.08) H 08/28/16 16:11 APTT 38.7 SECONDS (23.3-32.5) H 08/28/16 16:11 - Constitutional Appears: No Acute Distress - Head Exam Head Exam: NORMAL INSPECTION - ENT Exam ENT Exam: Mucous Membranes Moist - Neck Exam Neck Exam: Normal Inspection Additional comments: Right subclavian Permacath intact. - Respiratory Exam Respiratory Exam: Clear to Ausculation Bilateral Additional comments: However, there are decreased breath sounds at the bases. - Cardiovascular Exam Cardiovascular Exam: REGULAR RHYTHM - GI/Abdominal Exam GI & Abdominal Exam: Soft - Extremities Exam Additional comments: Left hand with residual 3 fingers puffy and stiff, but warm. weak radial pulse. Right hand with absent 3rd finger is warm and mobile. weak radial pulse. L BK residual limb normal. R lower leg is very much warmer today and again extremely tender. Significantly the knee is cooler than the lower leg !!! The right foot is dressed, and the heel ulcer was not examined by me today. R upper arm PICC line (a limited PICC due to disrupted proximal vasculature) is intact and working well. - Back Exam Additional comments: Sacral decubitus area is covered by Duoderm. - Neurological Exam Neurological Exam: Alert, Awake, CN II-XII Intact, Oriented x3 Additional comments: Gait not tested. - Psychiatric Exam Psychiatric exam: Normal Affect, Normal Mood - Skin Additional comments: Excoriations beneath breasts are much improved. Assessment and Plan (1) Osteomyelitis of ankle or foot Assessment & Plan: SEE SUBJECTIVE Status: Acute (2) ESRD (end stage renal disease) on dialysis Assessment & Plan: Continue HD 3x/wk Status: Chronic (3) DM type 2 (diabetes mellitus, type 2) Assessment & Plan: Controlled, management by Dr. Ambrose Status: Chronic (4) Coagulopathy Assessment & Plan: Continue Eliquis and aspirin for now. Status: Chronic (5) Peripheral arterial occlusive disease Assessment & Plan: SEE SUBJECTIVE Status: Chronic (6) SIRS (systemic inflammatory response syndrome) Assessment & Plan: There is danger of recurrence if we do not eliminate the source of infection, namely the right foot. Status: Resolved (7) Pneumonia Status: Acute (8) Decubitus ulcer of sacral region, stage 2 Assessment & Plan: This is new since admission and is being treated with Duoderm dressings. Status: Acute
[2016-09-13] MEDS: Insulin Detemir 100 Units/ml Inj SC SCH (21:46)
--- NOTE | 2016-09-14 02:00 | CP.PCM.PN ---
Subjective - Date & Time of Evaluation Date of Evaluation: 09/13/16 Time of Evaluation: 21:20 - Subjective Subjective: The patient has no spells of near syncope or seizures anymore. It is better to go up on the Topamax in case she has more spells of near syncope or seizures. It is not known that Topamax can cause hypercoagulability of the Blood as a common side effect. The known side effects of Topamax are 1. Glaucoma, needs to be checked periodically 2. Renal or Gall Bladder stones, no stones are reported. 3. Allergy like the rest of the drugs, and not higher than them Coagulation problems due to Topamax are very unlikely. No seizures are reported and patient is in a better mood. Topamax is helping the patient as it is anxiolytic, anti seizures and help her losing weight as she is overweight. It is recommended to continue Topamax for 2 Years after the spell of Near Syncope and questionable seizures. Dear Dr Martha Ellington thank you for your phone message. Objective - Vital Signs/Intake and Output Vital Signs (last 24 hours): Temp Pulse Resp BP Pulse Ox 99.0 F 120 H 23 120/54 L 100 09/13/16 21:00 09/13/16 22:00 09/13/16 22:00 09/13/16 22:00 09/13/16 22:00 Intake and Output: 09/13/16 09/14/16 18:59 06:59 Intake Total 950 770 Output Total 2200 Balance -1250 770 - Medications Medications: Current Medications Acetaminophen (Tylenol 325mg Tab) 650 mg PO Q4 PRN PRN Reason: Fever >100.4 F Last Admin: 08/28/16 15:23 Dose: 650 mg Acetaminophen (Tylenol 325mg Tab) 650 mg PO Q4 PRN PRN Reason: Pain, moderate (4-7) Last Admin: 09/03/16 03:33 Dose: 650 mg Albuterol/Ipratropium (Duoneb 3 Mg/0.5 Mg (3 Ml) Ud) 3 ml INH RQ4 PRN PRN Reason: Shortness of Breath Last Admin: 09/05/16 02:15 Dose: 3 ml Apixaban (Eliquis) 5 mg PO BID [facility] PRN Reason: Protocol Last Admin: 09/13/16 16:51 Dose: 5 mg Aspirin (Ecotrin) 81 mg PO DAILY [facility] Last Admin: 09/13/16 08:38 Dose: 81 mg Atorvastatin Calcium (Lipitor) 40 mg PO DAILY [facility] Last Admin: 09/13/16 08:39 Dose: 40 mg Benzonatate (Tessalon Perles) 200 mg PO TID PRN PRN Reason: Cough Last Admin: 09/13/16 21:57 Dose: 200 mg Cinacalcet (Sensipar) 30 mg PO DAILY [facility] Last Admin: 09/13/16 08:38 Dose: 30 mg Epoetin Tha (Procrit) 20,000 unit IV MWF [facility] Last Admin: 09/13/16 10:07 Dose: 20,000 unit Guaifenesin/Codeine Phosphate (Robitussin W/Codeine) 10 ml PO Q6 PRN PRN Reason: Cough Hydrocortisone (Anusol-Hc) 1 applic AR BID [facility] Last Admin: 09/13/16 16:50 Dose: 1 applic Piperacillin Sod/Tazobactam (Sod 2.25 gm/ Sodium Chloride) 100 mls @ 100 mls/ hr IVPB Q12 [facility] Last Admin: 09/13/16 21:45 Dose: 100 mls/hr Linezolid (Zyvox 600mg/300ml D5w) 300 mls @ 300 mls/hr IVPB Q12 [facility] Last Admin: 09/13/16 20:45 Dose: 300 mls/hr Meropenem 500 mg/ Sodium (Chloride) 100 mls @ 100 mls/hr IVPB DAILY [facility] Last Admin: 09/13/16 08:44 Dose: 100 mls/hr Amikacin Sulfate 250 mg/ (Sodium Chloride) 101 mls @ 100.609 mls/hr IVPB MWF [facility] Last Admin: 09/13/16 08:41 Dose: 100.609 mls/hr Insulin Detemir (Levemir) 28 units SC HS [facility] Last Admin: 09/13/16 21:46 Dose: 28 u Insulin Human Lispro (Humalog) 8 units SC AC [facility] Last Admin: 09/13/16 21:49 Dose: 8 units Lidocaine (Lidoderm) 1 ea TD DAILY [facility] Last Admin: 09/13/16 08:39 Dose: 1 ea Medroxyprogesterone Acetate (Provera) 10 mg PO DAILY [facility] Stop: 09/17/16 09:01 Last Admin: 09/13/16 08:38 Dose: 10 mg Nystatin (Mycostatin Oint) 1 applic TOP TID [facility] Last Admin: 09/13/16 16:51 Dose: 1 applic Ondansetron HCl (Zofran Inj) 4 mg IVP Q6 PRN PRN Reason: Nausea/Vomiting Last Admin: 09/02/16 12:11 Dose: 4 mg Pantoprazole Sodium (Protonix Ec Tab) 40 mg PO DAILY [facility] Last Admin: 09/13/16 08:39 Dose: 40 mg Sevelamer HCl (Renagel) 1,600 mg PO TID [facility] Last Admin: 09/13/16 16:52 Dose: 1,600 mg Topiramate (Topamax) 50 mg PO BID [facility] Last Admin: 09/13/16 16:52 Dose: 50 mg Vitamin B Complex/Vit C/Folic Acid (Nephro-Ajay) 1 tab PO DAILY [facility] Last Admin: 09/13/16 08:38 Dose: 1 tab - Labs Labs: 09/12/16 06:43 09/12/16 06:43 PT 16.5 SECONDS (9.6-11.2) H 08/28/16 16:11 INR 1.59 (0.92-1.08) H 08/28/16 16:11 APTT 38.7 SECONDS (23.3-32.5) H 08/28/16 16:11 Assessment and Plan (1) Diabetes Status: Chronic (2) ESRD (end stage renal disease) Status: Chronic (3) Cellulitis of leg Status: Acute (4) Hyperlipidemia Status: Acute (5) Back pain Status: Acute (6) Bacteremia due to Gram-negative bacteria Status: Acute (7) Diabetes mellitus type 2 with peripheral artery disease Status: Acute (8) PVD (peripheral vascular disease) Status: Acute
[2016-09-14] MEDS: guaiFENesin-Codeine 100-10mg/5ml Syrup (5 ml) UD PO PRN (04:15)
--- NOTE | 2016-09-14 06:46 | CP.PCM.PN ---
Subjective - Date & Time of Evaluation Date of Evaluation: 09/14/16 Time of Evaluation: 06:00 - Subjective Subjective: 46 year old female seen at bedside in ICU regarding heel eschar, and leg cellulits. Pt seen resting comfortably in bed at time of visit. Patient states that she has had no major overnight events. She denies recent f/n/v/c/sob/cp at this time. Reports minor pain in her bilateral legs an thigh. Patient's multipodus boot is intact to right heel at time of visit. Objective - Vital Signs/Intake and Output Vital Signs (last 24 hours): Temp Pulse Resp BP Pulse Ox 98.4 F 113 H 19 111/64 100 09/14/16 04:00 09/14/16 06:00 09/14/16 06:00 09/14/16 06:00 09/14/16 06:00 Intake and Output: 09/13/16 09/14/16 18:59 06:59 Intake Total 950 880 Output Total 2200 Balance -1250 880 - Medications Medications: Current Medications Acetaminophen (Tylenol 325mg Tab) 650 mg PO Q4 PRN PRN Reason: Fever >100.4 F Last Admin: 08/28/16 15:23 Dose: 650 mg Acetaminophen (Tylenol 325mg Tab) 650 mg PO Q4 PRN PRN Reason: Pain, moderate (4-7) Last Admin: 09/03/16 03:33 Dose: 650 mg Albuterol/Ipratropium (Duoneb 3 Mg/0.5 Mg (3 Ml) Ud) 3 ml INH RQ4 PRN PRN Reason: Shortness of Breath Last Admin: 09/05/16 02:15 Dose: 3 ml Apixaban (Eliquis) 5 mg PO BID [facility] PRN Reason: Protocol Last Admin: 09/13/16 16:51 Dose: 5 mg Aspirin (Ecotrin) 81 mg PO DAILY [facility] Last Admin: 09/13/16 08:38 Dose: 81 mg Atorvastatin Calcium (Lipitor) 40 mg PO DAILY [facility] Last Admin: 09/13/16 08:39 Dose: 40 mg Benzonatate (Tessalon Perles) 200 mg PO TID PRN PRN Reason: Cough Last Admin: 09/13/16 21:57 Dose: 200 mg Cinacalcet (Sensipar) 30 mg PO DAILY [facility] Last Admin: 09/13/16 08:38 Dose: 30 mg Epoetin Tha (Procrit) 20,000 unit IV MWF [facility] Last Admin: 09/13/16 10:07 Dose: 20,000 unit Guaifenesin/Codeine Phosphate (Robitussin W/Codeine) 10 ml PO Q6 PRN PRN Reason: Cough Last Admin: 09/14/16 04:15 Dose: 10 ml Hydrocortisone (Anusol-Hc) 1 applic [place] BID [facility] Last Admin: 09/13/16 16:50 Dose: 1 applic Piperacillin Sod/Tazobactam (Sod 2.25 gm/ Sodium Chloride) 100 mls @ 100 mls/ hr IVPB Q12 [facility] Last Admin: 09/13/16 21:45 Dose: 100 mls/hr Linezolid (Zyvox 600mg/300ml D5w) 300 mls @ 300 mls/hr IVPB Q12 [facility] Last Admin: 09/13/16 20:45 Dose: 300 mls/hr Meropenem 500 mg/ Sodium (Chloride) 100 mls @ 100 mls/hr IVPB DAILY [facility] Last Admin: 09/13/16 08:44 Dose: 100 mls/hr Amikacin Sulfate 250 mg/ (Sodium Chloride) 101 mls @ 100.609 mls/hr IVPB MWF [facility] Last Admin: 09/13/16 08:41 Dose: 100.609 mls/hr Insulin Detemir (Levemir) 28 units SC HS [facility] Last Admin: 09/13/16 21:46 Dose: 28 u Insulin Human Lispro (Humalog) 8 units SC AC [facility] Last Admin: 09/13/16 21:49 Dose: 8 units Lidocaine (Lidoderm) 1 ea TD DAILY [facility] Last Admin: 09/13/16 08:39 Dose: 1 ea Medroxyprogesterone Acetate (Provera) 10 mg PO DAILY [facility] Stop: 09/17/16 09:01 Last Admin: 09/13/16 08:38 Dose: 10 mg Nystatin (Mycostatin Oint) 1 applic TOP TID [facility] Last Admin: 09/13/16 16:51 Dose: 1 applic Ondansetron HCl (Zofran Inj) 4 mg IVP Q6 PRN PRN Reason: Nausea/Vomiting Last Admin: 09/02/16 12:11 Dose: 4 mg Pantoprazole Sodium (Protonix Ec Tab) 40 mg PO DAILY [facility] Last Admin: 09/13/16 08:39 Dose: 40 mg Sevelamer HCl (Renagel) 1,600 mg PO TID [facility] Last Admin: 09/13/16 16:52 Dose: 1,600 mg Topiramate (Topamax) 50 mg PO BID [facility] Last Admin: 09/13/16 16:52 Dose: 50 mg Vitamin B Complex/Vit C/Folic Acid (Nephro-Ajay) 1 tab PO DAILY [facility] Last Admin: 09/13/16 08:38 Dose: 1 tab - Labs Labs: 09/12/16 06:43 09/12/16 06:43 PT 16.5 SECONDS (9.6-11.2) H 08/28/16 16:11 INR 1.59 (0.92-1.08) H 08/28/16 16:11 APTT 38.7 SECONDS (23.3-32.5) H 08/28/16 16:11 - Constitutional Appears: No Acute Distress, Chronically Ill - Extremities Exam Additional comments: Right lower extremity focused exam: VASC- DP and PT pulses non-palpable, capillary refill < 5 sec to digits x 5, mild 1+ pitting edema noted to anterior aspect of leg and dorsum of foot, signs of decreased edema with return of relaxes skin tension lines. Leg callor present , absent erythema. NEURO-Gross pedal sensation is diminished DERM- Superficial dry eschar noted to plantar aspect of heel, with noted sanguinous crust along periphery, with noted serous exudate crust, absent purulence. Absent drainage on compression. No increased warmth noted, no local or ascending erythema, no acute signs infection. ORTHO- Mild tenderness noted to distal posterior and lateral legs, severe varus deformity with dislocation of ankle noted. - Neurological Exam Neurological Exam: Alert, Awake, Oriented x3 - Psychiatric Exam Psychiatric exam: Normal Affect, Normal Mood Assessment and Plan - Assessment and Plan (Free Text) Assessment: 46 yo female patient w/ pmhx of HTN, ESRD (on dialysis), coagulopathy, DM, charcot right foot PVD w/ stable dry eschar of right heel & cellulits. Plan: patient examined and evaluated discussed in detail with attending Dr. Resendez chart, labs, vitals reviewed;afebrile dressing change with wet to dry sterile gauze, and DSD multipodus boot to be worn at all times while in bed continue IV abx per ID podiatry will continue to follow patient while in house
[2016-09-14] MEDS: Insulin Lispro (humaLOG) 100 Units/ml Inj SC SCH ×3 (07:30→16:44)
[2016-09-14 08:03] LABS: MEAN CELL VOLUME 91.3 fl (81.0-99.0); MEAN CORPUSCULAR HEMOGLOBIN 28.8 pg (27.0-31.0); MEAN CORPUSCULAR HGB CONC 31.5 g/dL (33.0-37.0); RED CELL DISTRIBUTION WIDTH 19.2 % (11.5-14.5); WHITE BLOOD COUNT 15.8 K/uL (4.8-10.8)
[2016-09-14 08:14] LABS: CALCIUM 8.9 mg/dL (8.4-10.2); POTASSIUM 4.2 MMOL/L (3.6-5.0)
[2016-09-14] MEDS: Lidocaine 5% Patch TD SCH (09:20)
[2016-09-14] MEDS: Multivitamin Vitamin B Complex (Nephro-Vite) Tab PO SCH (09:20)
[2016-09-14] MEDS: Meropenem 500 MG in Sodium Chloride 0.9% 100 ML IVPB SCH (09:23)
[2016-09-14] MEDS: Hydrocortisone 2.5% (Rectal) CREAM PR SCH ×2 (09:40→18:29)
[2016-09-14] MEDS: Nystatin Ointment TOP SCH ×3 (09:41→18:47)
[2016-09-14] MEDS: Pantoprazole 40 mg EC Tab PO SCH (09:43)
[2016-09-14] MEDS ORDERED: Albuterol 0.083% Inhal Sol (2.5 mg/3 mL) UD INH PRN (10:50)
--- NOTE | 2016-09-14 11:23 | CP.PCM.PN ---
Subjective - Date & Time of Evaluation Date of Evaluation: 09/14/16 Time of Evaluation: 11:10 - Subjective Subjective: Pt states that she feels better No sob noted Objective - Vital Signs/Intake and Output Vital Signs (last 24 hours): Temp Pulse Resp BP Pulse Ox 98.4 F 120 H 19 111/64 100 09/14/16 04:00 09/14/16 09:49 09/14/16 06:00 09/14/16 06:00 09/14/16 09:49 Intake and Output: 09/14/16 09/14/16 06:59 18:59 Intake Total 880 Balance 880 - Medications Medications: Current Medications Acetaminophen (Tylenol 325mg Tab) 650 mg PO Q4 PRN PRN Reason: Fever >100.4 F Last Admin: 08/28/16 15:23 Dose: 650 mg Acetaminophen (Tylenol 325mg Tab) 650 mg PO Q4 PRN PRN Reason: Pain, moderate (4-7) Last Admin: 09/03/16 03:33 Dose: 650 mg Albuterol Sulfate (Albuterol 0.083% Inhal Barbie (2.5 Mg/3 Ml) Ud) 2.5 mg INH RQ4 PRN PRN Reason: Shortness of Breath Albuterol/Ipratropium (Duoneb 3 Mg/0.5 Mg (3 Ml) Ud) 3 ml INH RQID [facility] Apixaban (Eliquis) 5 mg PO BID [facility] PRN Reason: Protocol Last Admin: 09/14/16 09:43 Dose: 5 mg Aspirin (Ecotrin) 81 mg PO DAILY [facility] Last Admin: 09/14/16 09:43 Dose: 81 mg Atorvastatin Calcium (Lipitor) 40 mg PO DAILY [facility] Last Admin: 09/14/16 09:20 Dose: 40 mg Benzonatate (Tessalon Perles) 200 mg PO TID PRN PRN Reason: Cough Last Admin: 09/14/16 09:45 Dose: 200 mg Cinacalcet (Sensipar) 30 mg PO DAILY [facility] Last Admin: 09/14/16 09:20 Dose: 30 mg Epoetin Tha (Procrit) 20,000 unit IV MWF [facility] Last Admin: 09/13/16 10:07 Dose: 20,000 unit Guaifenesin/Codeine Phosphate (Robitussin W/Codeine) 10 ml PO Q6 PRN PRN Reason: Cough Last Admin: 09/14/16 04:15 Dose: 10 ml Hydrocortisone (Anusol-Hc) 1 applic [place] BID [facility] Last Admin: 09/14/16 09:40 Dose: 1 applic Piperacillin Sod/Tazobactam (Sod 2.25 gm/ Sodium Chloride) 100 mls @ 100 mls/ hr IVPB Q12 [facility] Last Admin: 09/14/16 09:44 Dose: 100 mls/hr Linezolid (Zyvox 600mg/300ml D5w) 300 mls @ 300 mls/hr IVPB Q12 [facility] Last Admin: 09/13/16 20:45 Dose: 300 mls/hr Meropenem 500 mg/ Sodium (Chloride) 100 mls @ 100 mls/hr IVPB DAILY [facility] Last Admin: 09/14/16 09:23 Dose: 100 mls/hr Amikacin Sulfate 250 mg/ (Sodium Chloride) 101 mls @ 100.609 mls/hr IVPB MWF [facility] Last Admin: 09/13/16 08:41 Dose: 100.609 mls/hr Insulin Detemir (Levemir) 28 units SC HS [facility] Last Admin: 09/13/16 21:46 Dose: 28 u Insulin Human Lispro (Humalog) 8 units SC AC [facility] Last Admin: 09/14/16 07:30 Dose: 8 units Lidocaine (Lidoderm) 1 ea TD DAILY [facility] Last Admin: 09/14/16 09:20 Dose: 1 ea Medroxyprogesterone Acetate (Provera) 10 mg PO DAILY [facility] Stop: 09/17/16 09:01 Last Admin: 09/14/16 09:21 Dose: 10 mg Nystatin (Mycostatin Oint) 1 applic TOP TID [facility] Last Admin: 09/14/16 09:41 Dose: 1 applic Ondansetron HCl (Zofran Inj) 4 mg IVP Q6 PRN PRN Reason: Nausea/Vomiting Last Admin: 09/02/16 12:11 Dose: 4 mg Pantoprazole Sodium (Protonix Ec Tab) 40 mg PO DAILY [facility] Last Admin: 09/14/16 09:43 Dose: 40 mg Sevelamer HCl (Renagel) 1,600 mg PO TID [facility] Last Admin: 09/14/16 09:21 Dose: 1,600 mg Topiramate (Topamax) 50 mg PO BID [facility] Last Admin: 09/14/16 09:22 Dose: 50 mg Vitamin B Complex/Vit C/Folic Acid (Nephro-Ajay) 1 tab PO DAILY [facility] Last Admin: 09/14/16 09:20 Dose: 1 tab - Labs Labs: 09/14/16 05:30 09/14/16 05:30 PT 16.5 SECONDS (9.6-11.2) H 08/28/16 16:11 INR 1.59 (0.92-1.08) H 08/28/16 16:11 APTT 38.7 SECONDS (23.3-32.5) H 08/28/16 16:11 - Respiratory Exam Additional comments: Lungs clear - Cardiovascular Exam Additional comments: Sinus tachycardia 114/min - GI/Abdominal Exam GI & Abdominal Exam: Soft - Extremities Exam Additional comments: Lt bka Rt leg wrapped Assessment and Plan - Assessment and Plan (Free Text) Assessment: ESRD on maintenance HD Sepsis, pneumonia Rt leg Osteo IDDM Plan: Dialysis was tolerated well yesterday Stable on dialysis Continue HD every MWF
[2016-09-14 11:47] LABS: AMIKACIN 5.6 mg/L (see note)
[2016-09-14] MEDS: Linezolid 600 mg in D5W 300 ml 300 ML IVPB SCH ×2 (12:29→21:29)
--- NOTE | 2016-09-14 16:36 | CP.PCM.PN ---
Subjective - Date & Time of Evaluation Date of Evaluation: 09/14/16 Time of Evaluation: 16:29 - Subjective Subjective: Major concerns : Osteomyelitis left heel with adjacent myositis involving the lower leg musculature. Concern that even with 4 drug iv antibiotics, there may be breakthrough sepsis and risk of repeat episode of SIRS Concern that protracted hospital course can lead to further complications including pneumonia, decubiti, and depression Patient is afebrile today, still with some cough, still with pain in right lower leg. Absence of pain in right foot is not surprising since the patient has peripheral sensory neuropathy (hence Charcot joint). Physical therapy begun. Of course, the patient cannot possibly put weight on the right leg !!! I am planning discussions with general surgeon Dr. Villarreal and podiatric surgeon Dr. Gordon on Friday, 09/16. Dr. Pastrana' office informed me that [place] is [place] of the country until [place]23. Glucoses are generally well controlled. I am going to discontinue the arm sticks (no fingersticks are permitted) to avoid complications. Bedside glucose testing should only be done if symptoms so indicate. Dr. Maguire's note appreciated. Will continue the Topamax to prevent recurrence of seizure activity Objective - Vital Signs/Intake and Output Vital Signs (last 24 hours): Temp Pulse Resp BP Pulse Ox 98.4 F 111 H 22 98/69 L 100 09/14/16 12:00 09/14/16 12:00 09/14/16 12:00 09/14/16 12:00 09/14/16 12:00 Intake and Output: 09/14/16 09/14/16 06:59 18:59 Intake Total 880 420 Balance 880 420 - Medications Medications: Current Medications Acetaminophen (Tylenol 325mg Tab) 650 mg PO Q4 PRN PRN Reason: Fever >100.4 F Last Admin: 08/28/16 15:23 Dose: 650 mg Acetaminophen (Tylenol 325mg Tab) 650 mg PO Q4 PRN PRN Reason: Pain, moderate (4-7) Last Admin: 09/03/16 03:33 Dose: 650 mg Albuterol Sulfate (Albuterol 0.083% Inhal Barbie (2.5 Mg/3 Ml) Ud) 2.5 mg INH RQ4 PRN PRN Reason: Shortness of Breath Albuterol/Ipratropium (Duoneb 3 Mg/0.5 Mg (3 Ml) Ud) 3 ml INH RQID [facility] Apixaban (Eliquis) 5 mg PO BID [facility] PRN Reason: Protocol Last Admin: 09/14/16 09:43 Dose: 5 mg Aspirin (Ecotrin) 81 mg PO DAILY [facility] Last Admin: 09/14/16 09:43 Dose: 81 mg Atorvastatin Calcium (Lipitor) 40 mg PO DAILY [facility] Last Admin: 09/14/16 09:20 Dose: 40 mg Benzonatate (Tessalon Perles) 200 mg PO TID PRN PRN Reason: Cough Last Admin: 09/14/16 09:45 Dose: 200 mg Cinacalcet (Sensipar) 30 mg PO DAILY [facility] Last Admin: 09/14/16 09:20 Dose: 30 mg Epoetin Tha (Procrit) 20,000 unit IV MWF [facility] Last Admin: 09/13/16 10:07 Dose: 20,000 unit Guaifenesin/Codeine Phosphate (Robitussin W/Codeine) 10 ml PO Q6 PRN PRN Reason: Cough Last Admin: 09/14/16 04:15 Dose: 10 ml Hydrocortisone (Anusol-Hc) 1 applic SC BID [facility] Last Admin: 09/14/16 09:40 Dose: 1 applic Piperacillin Sod/Tazobactam (Sod 2.25 gm/ Sodium Chloride) 100 mls @ 100 mls/ hr IVPB Q12 [facility] Last Admin: 09/14/16 09:44 Dose: 100 mls/hr Linezolid (Zyvox 600mg/300ml D5w) 300 mls @ 300 mls/hr IVPB Q12 [facility] Last Admin: 09/14/16 12:29 Dose: 300 mls/hr Meropenem 500 mg/ Sodium (Chloride) 100 mls @ 100 mls/hr IVPB DAILY [facility] Last Admin: 09/14/16 09:23 Dose: 100 mls/hr Amikacin Sulfate 250 mg/ (Sodium Chloride) 101 mls @ 100.609 mls/hr IVPB MWF [facility] Last Admin: 09/13/16 08:41 Dose: 100.609 mls/hr Insulin Detemir (Levemir) 30 units SC HS [facility] Insulin Human Lispro (Humalog) 8 units SC AC [facility] Last Admin: 09/14/16 12:30 Dose: 8 units Lidocaine (Lidoderm) 1 ea TD DAILY [facility] Last Admin: 09/14/16 09:20 Dose: 1 ea Medroxyprogesterone Acetate (Provera) 10 mg PO DAILY [facility] Stop: 09/17/16 09:01 Last Admin: 09/14/16 09:21 Dose: 10 mg Nystatin (Mycostatin Oint) 1 applic TOP TID [facility] Last Admin: 09/14/16 12:53 Dose: 1 applic Ondansetron HCl (Zofran Inj) 4 mg IVP Q6 PRN PRN Reason: Nausea/Vomiting Last Admin: 09/02/16 12:11 Dose: 4 mg Pantoprazole Sodium (Protonix Ec Tab) 40 mg PO DAILY [facility] Last Admin: 09/14/16 09:43 Dose: 40 mg Sevelamer HCl (Renagel) 1,600 mg PO TID [facility] Last Admin: 09/14/16 12:53 Dose: 1,600 mg Topiramate (Topamax) 50 mg PO BID [facility] Last Admin: 09/14/16 09:22 Dose: 50 mg Vitamin B Complex/Vit C/Folic Acid (Nephro-Ajay) 1 tab PO DAILY [facility] Last Admin: 09/14/16 09:20 Dose: 1 tab - Labs Labs: 09/14/16 05:30 09/14/16 05:30 PT 16.5 SECONDS (9.6-11.2) H 08/28/16 16:11 INR 1.59 (0.92-1.08) H 08/28/16 16:11 APTT 38.7 SECONDS (23.3-32.5) H 08/28/16 16:11 - Constitutional Appears: No Acute Distress, Other - Head Exam Head Exam: NORMAL INSPECTION - ENT Exam ENT Exam: Mucous Membranes Moist - Neck Exam Neck Exam: Normal Inspection - Respiratory Exam Respiratory Exam: Clear to Ausculation Bilateral, Respiratory Distress - Cardiovascular Exam Cardiovascular Exam: REGULAR RHYTHM - GI/Abdominal Exam GI & Abdominal Exam: Soft - Extremities Exam Additional comments: Right lower leg is sl swollen, erythematous, very warm, and extremely tender at and within 20 cm of the heel along the Achilles tendon. R heel is dressed. Right toes are blackened, shriveled, with little or no sensation. No pedal pulses. - Back Exam Back Exam: NORMAL INSPECTION - Neurological Exam Neurological Exam: Alert, Awake, CN II-XII Intact, Oriented x3 - Psychiatric Exam Psychiatric exam: Anxious, Normal Affect - Skin Additional comments: Duoderm covers sacral area. Assessment and Plan (1) Osteomyelitis of ankle or foot Assessment & Plan: SEE YESTERDAY'S PROGRESS NOTE and TODAY'S SUBJECTIVE SECTION ABOVE. The patient has osteomyelitis of the right heel and related myositis. This is the conclusion of Dr. Lemon, Dr. Gallito Shepard, Cameron Ambrose, Dr. Skyler Doran ( vascular surgeon), and myself. We are recommending in the strongest possible way that there be a right below the knee amputation - before the patient succombs to sepsis. I will discuss this with the general surgeon(s) and with Dr. Gordon, and we should make plans RORY. Status: Acute (2) ESRD (end stage renal disease) on dialysis Assessment & Plan: Continue HD 3x/wk Status: Chronic (3) DM type 2 (diabetes mellitus, type 2) Assessment & Plan: Stop arm sticks for glucose determination. Status: Chronic (4) Coagulopathy Assessment & Plan: Continue Eliquis and ASA Status: Chronic (5) Peripheral arterial occlusive disease Assessment & Plan: Gangrene of right toes may look dry, but this can be very misleading - as Dr. Levon Brown learned after multiple surgeries on the Left hand. Status: Chronic (6) SIRS (systemic inflammatory response syndrome) Assessment & Plan: An ever present danger. Status: Resolved (7) Pneumonia Assessment & Plan: resolving Status: Acute (8) Decubitus ulcer of sacral region, stage 2 Assessment & Plan: Wound care in progress. Status: Acute
[2016-09-14] MEDS: Insulin Detemir 100 Units/ml Inj SC SCH (21:30)
--- NOTE | 2016-09-14 22:13 | CP.PCM.PN ---
Subjective - Date & Time of Evaluation Date of Evaluation: 09/14/16 Time of Evaluation: 18:00 - Subjective Subjective: No seizures or near syncope spells. The note of Dr Martha Ellington is appreciated. Objective - Vital Signs/Intake and Output Vital Signs (last 24 hours): Temp Pulse Resp BP Pulse Ox 98.1 F 114 H 16 91/57 L 100 09/14/16 20:00 09/14/16 22:00 09/14/16 22:00 09/14/16 22:00 09/14/16 22:00 Intake and Output: 09/14/16 09/15/16 18:59 06:59 Intake Total 1140 404 Balance 1140 404 - Medications Medications: Current Medications Acetaminophen (Tylenol 325mg Tab) 650 mg PO Q4 PRN PRN Reason: Fever >100.4 F Last Admin: 08/28/16 15:23 Dose: 650 mg Acetaminophen (Tylenol 325mg Tab) 650 mg PO Q4 PRN PRN Reason: Pain, moderate (4-7) Last Admin: 09/03/16 03:33 Dose: 650 mg Albuterol Sulfate (Albuterol 0.083% Inhal Barbie (2.5 Mg/3 Ml) Ud) 2.5 mg INH RQ4 PRN PRN Reason: Shortness of Breath Albuterol/Ipratropium (Duoneb 3 Mg/0.5 Mg (3 Ml) Ud) 3 ml INH RQID JASPER Apixaban (Eliquis) 5 mg PO BID JASPER PRN Reason: Protocol Last Admin: 09/14/16 16:43 Dose: 5 mg Aspirin (Ecotrin) 81 mg PO DAILY [facility] Last Admin: 09/14/16 09:43 Dose: 81 mg Atorvastatin Calcium (Lipitor) 40 mg PO DAILY [facility] Last Admin: 09/14/16 09:20 Dose: 40 mg Benzonatate (Tessalon Perles) 200 mg PO TID PRN PRN Reason: Cough Last Admin: 09/14/16 16:40 Dose: 200 mg Cinacalcet (Sensipar) 30 mg PO DAILY [facility] Last Admin: 09/14/16 09:20 Dose: 30 mg Epoetin Tha (Procrit) 20,000 unit IV MWF [facility] Last Admin: 09/13/16 10:07 Dose: 20,000 unit Guaifenesin/Codeine Phosphate (Robitussin W/Codeine) 10 ml PO Q6 PRN PRN Reason: Cough Last Admin: 09/14/16 04:15 Dose: 10 ml Hydrocortisone (Anusol-Hc) 1 applic [place] BID [facility] Last Admin: 09/14/16 18:29 Dose: Not Given Piperacillin Sod/Tazobactam (Sod 2.25 gm/ Sodium Chloride) 100 mls @ 100 mls/ hr IVPB Q12 [facility] Last Admin: 09/14/16 20:26 Dose: 100 mls/hr Linezolid (Zyvox 600mg/300ml D5w) 300 mls @ 300 mls/hr IVPB Q12 [facility] Last Admin: 09/14/16 21:29 Dose: 300 mls/hr Meropenem 500 mg/ Sodium (Chloride) 100 mls @ 100 mls/hr IVPB DAILY [facility] Last Admin: 09/14/16 09:23 Dose: 100 mls/hr Amikacin Sulfate 250 mg/ (Sodium Chloride) 101 mls @ 100.609 mls/hr IVPB MWF [facility] Last Admin: 09/13/16 08:41 Dose: 100.609 mls/hr Insulin Detemir (Levemir) 30 units SC HS [facility] Last Admin: 09/14/16 21:30 Dose: 30 units Insulin Human Lispro (Humalog) 8 units SC AC [facility] Last Admin: 09/14/16 16:44 Dose: 8 units Lidocaine (Lidoderm) 1 ea TD DAILY [facility] Last Admin: 09/14/16 09:20 Dose: 1 ea Medroxyprogesterone Acetate (Provera) 10 mg PO DAILY [facility] Stop: 09/17/16 09:01 Last Admin: 09/14/16 09:21 Dose: 10 mg Nystatin (Mycostatin Oint) 1 applic TOP TID [facility] Last Admin: 09/14/16 18:47 Dose: 1 applic Ondansetron HCl (Zofran Inj) 4 mg IVP Q6 PRN PRN Reason: Nausea/Vomiting Last Admin: 09/02/16 12:11 Dose: 4 mg Pantoprazole Sodium (Protonix Ec Tab) 40 mg PO DAILY [facility] Last Admin: 09/14/16 09:43 Dose: 40 mg Sevelamer HCl (Renagel) 1,600 mg PO TID [facility] Last Admin: 09/14/16 16:43 Dose: 1,600 mg Topiramate (Topamax) 50 mg PO BID [facility] Last Admin: 09/14/16 18:45 Dose: 50 mg Vitamin B Complex/Vit C/Folic Acid (Nephro-Ajay) 1 tab PO DAILY [facility] Last Admin: 09/14/16 09:20 Dose: 1 tab - Labs Labs: 09/14/16 05:30 09/14/16 05:30 PT 16.5 SECONDS (9.6-11.2) H 08/28/16 16:11 INR 1.59 (0.92-1.08) H 08/28/16 16:11 APTT 38.7 SECONDS (23.3-32.5) H 08/28/16 16:11 Assessment and Plan (1) Diabetes Status: Chronic (2) ESRD (end stage renal disease) Status: Chronic (3) Cellulitis of leg Status: Acute (4) Hyperlipidemia Status: Acute (5) Back pain Status: Acute (6) Bacteremia due to Gram-negative bacteria Status: Acute (7) Diabetes mellitus type 2 with peripheral artery disease Status: Acute (8) PVD (peripheral vascular disease) Status: Acute
[2016-09-15] MEDS: guaiFENesin-Codeine 100-10mg/5ml Syrup (5 ml) UD PO PRN (03:07)
[2016-09-15 07:36] LABS: HEMATOCRIT 28.8 % (34.0-47.0); MEAN CELL VOLUME 91.3 fl (81.0-99.0); MEAN CORPUSCULAR HEMOGLOBIN 29.3 pg (27.0-31.0); MEAN CORPUSCULAR HGB CONC 32.1 g/dL (33.0-37.0); RED CELL DISTRIBUTION WIDTH 19.3 % (11.5-14.5); WHITE BLOOD COUNT 12.9 K/uL (4.8-10.8)
[2016-09-15 07:42] LABS: ALB/GLOB RATIO 0.6 (1.0-2.1); BILIRUBIN,TOTAL 0.9 mg/dl (0.2-1.3); CALCIUM 8.9 mg/dL (8.4-10.2); POTASSIUM 4.7 MMOL/L (3.6-5.0); TOTAL PROTEIN 8.3 G/DL (6.3-8.2)
[2016-09-15] MEDS: Insulin Lispro (humaLOG) 100 Units/ml Inj SC SCH ×3 (08:09→17:18)
[2016-09-15] MEDS: Linezolid 600 mg in D5W 300 ml 300 ML IVPB SCH (08:13)
[2016-09-15] MEDS: Pantoprazole 40 mg EC Tab PO SCH (09:02)
[2016-09-15] MEDS: Multivitamin Vitamin B Complex (Nephro-Vite) Tab PO SCH (09:02)
[2016-09-15] MEDS: Lidocaine 5% Patch TD SCH (09:03)
[2016-09-15] MEDS: Nystatin Ointment TOP SCH ×3 (09:04→17:17)
[2016-09-15] MEDS: Hydrocortisone 2.5% (Rectal) CREAM PR SCH ×2 (09:05→17:16)
[2016-09-15] MEDS: Meropenem 500 MG in Sodium Chloride 0.9% 100 ML IVPB SCH (09:08)
--- NOTE | 2016-09-15 10:14 | CP.PCM.PN ---
Subjective - Date & Time of Evaluation Date of Evaluation: 09/15/16 Time of Evaluation: 09:58 - Subjective Subjective: ID NOTE PATIENT WAS SEEN BY VASCULAR SURGERY HAVE REVIEWED C WILL DISCUSS C SURGERY THE POSSIBILITY OF BKA WOUND CULTURE(DONE BY ) GREW NENITA AND GRAM NEGATIVE RODS NOTE THAT WBC IS STILL ELEVATED THOUGH FLUCTUATING I STILL AGREE THAT SHE WILL BENEFIT BY BKA SHE IS LIKELY TO BECOME SEPTIC IN FUTURE WILL ADD DIFLUCAN FOR PRESENT TO ALREADY SIGNIFICANT REGIMEN OF ANTI- INFECTIVES WE WILL ALSO NEED TO CONSIDER THE NEED TO REMOVE AND REPLACE VASCULAR ACCESS IN FUTURE Objective - Vital Signs/Intake and Output Vital Signs (last 24 hours): Temp Pulse Resp BP Pulse Ox 98.4 F 103 H 23 132/77 100 09/15/16 08:00 09/15/16 08:00 09/15/16 08:00 09/15/16 08:00 09/15/16 08:00 Intake and Output: 09/15/16 09/15/16 06:59 18:59 Intake Total 418 310 Balance 418 310 - Medications Medications: Current Medications Acetaminophen (Tylenol 325mg Tab) 650 mg PO Q4 PRN PRN Reason: Fever >100.4 F Last Admin: 08/28/16 15:23 Dose: 650 mg Acetaminophen (Tylenol 325mg Tab) 650 mg PO Q4 PRN PRN Reason: Pain, moderate (4-7) Last Admin: 09/03/16 03:33 Dose: 650 mg Albuterol Sulfate (Albuterol 0.083% Inhal Barbie (2.5 Mg/3 Ml) Ud) 2.5 mg INH RQ4 PRN PRN Reason: Shortness of Breath Albuterol/Ipratropium (Duoneb 3 Mg/0.5 Mg (3 Ml) Ud) 3 ml INH RQID JASPER Apixaban (Eliquis) 5 mg PO BID JASPER PRN Reason: Protocol Last Admin: 09/15/16 09:07 Dose: 5 mg Aspirin (Ecotrin) 81 mg PO DAILY [facility] Last Admin: 09/15/16 09:06 Dose: 81 mg Atorvastatin Calcium (Lipitor) 40 mg PO DAILY [facility] Last Admin: 09/15/16 09:03 Dose: 40 mg Benzonatate (Tessalon Perles) 200 mg PO TID PRN PRN Reason: Cough Last Admin: 09/15/16 09:06 Dose: 200 mg Cinacalcet (Sensipar) 30 mg PO DAILY [facility] Last Admin: 09/15/16 09:05 Dose: 30 mg Epoetin Tha (Procrit) 20,000 unit IV MWF [facility] Last Admin: 09/13/16 10:07 Dose: 20,000 unit Guaifenesin/Codeine Phosphate (Robitussin W/Codeine) 10 ml PO Q6 PRN PRN Reason: Cough Last Admin: 09/15/16 03:07 Dose: 10 ml Hydrocortisone (Anusol-Hc) 1 applic [place] BID [facility] Last Admin: 09/15/16 09:05 Dose: 1 applic Piperacillin Sod/Tazobactam (Sod 2.25 gm/ Sodium Chloride) 100 mls @ 100 mls/ hr IVPB Q12 [facility] Last Admin: 09/15/16 09:13 Dose: 100 mls/hr Linezolid (Zyvox 600mg/300ml D5w) 300 mls @ 300 mls/hr IVPB Q12 [facility] Last Admin: 09/15/16 08:13 Dose: 300 mls/hr Meropenem 500 mg/ Sodium (Chloride) 100 mls @ 100 mls/hr IVPB DAILY [facility] Last Admin: 09/15/16 09:08 Dose: 100 mls/hr Amikacin Sulfate 250 mg/ (Sodium Chloride) 101 mls @ 100.609 mls/hr IVPB MWF [facility] Last Admin: 09/13/16 08:41 Dose: 100.609 mls/hr Insulin Detemir (Levemir) 30 units SC HS [facility] Last Admin: 09/14/16 21:30 Dose: 30 units Insulin Human Lispro (Humalog) 8 units SC AC [facility] Last Admin: 09/15/16 08:09 Dose: 8 units Lidocaine (Lidoderm) 1 ea TD DAILY [facility] Last Admin: 09/15/16 09:03 Dose: 1 ea Medroxyprogesterone Acetate (Provera) 10 mg PO DAILY [facility] Stop: 09/17/16 09:01 Last Admin: 09/15/16 09:02 Dose: 10 mg Nystatin (Mycostatin Oint) 1 applic TOP TID [facility] Last Admin: 09/15/16 09:04 Dose: 1 applic Ondansetron HCl (Zofran Inj) 4 mg IVP Q6 PRN PRN Reason: Nausea/Vomiting Last Admin: 09/02/16 12:11 Dose: 4 mg Pantoprazole Sodium (Protonix Ec Tab) 40 mg PO DAILY [facility] Last Admin: 09/15/16 09:02 Dose: 40 mg Sevelamer HCl (Renagel) 1,600 mg PO TID [facility] Last Admin: 09/15/16 09:05 Dose: 1,600 mg Topiramate (Topamax) 50 mg PO BID [facility] Last Admin: 09/15/16 09:03 Dose: 50 mg Vitamin B Complex/Vit C/Folic Acid (Nephro-Ajay) 1 tab PO DAILY [facility] Last Admin: 09/15/16 09:02 Dose: 1 tab - Labs Labs: 09/15/16 06:40 09/15/16 06:40 PT 16.5 SECONDS (9.6-11.2) H 08/28/16 16:11 INR 1.59 (0.92-1.08) H 08/28/16 16:11 APTT 38.7 SECONDS (23.3-32.5) H 08/28/16 16:11
--- NOTE | 2016-09-15 10:56 | CP.PCM.PN ---
Subjective - Date & Time of Evaluation Date of Evaluation: 09/15/16 Time of Evaluation: 10:40 - Subjective Subjective: Nothing new. Please see my note of 09/12/16 for detailed history and progress (or lack thereof). Patient continues to have pain in distal lower right leg - from nursing home down from the knee to the beginning of the ankle. This is the same area that is shiny, hot, and with taut muscles/tendons. The ankle and foot are cooler. The right heel remains covered with devitalized tissue and is slightly boggy. The severely deformed ankle/foot is floppy. It is cool. The toes appear to show dry gangrene, but as we learned from the patient's left hand, what we all thougnt was dry gangrene was in fact covering osteomyelitis that extented to the MCP joint and requred the amputation of 3 fingers. I remain convinced that a BK amputation will be in the best interest of the patient - to allow for elimination of the underlying infection and to allow for a prosthesis that will enable greater mobility. Patient notes that her father was a double BK amputee and managed quite will with a cane. The patient herself was limited mainly to a few steps and transfers, and spent all her time in motorized wheelchair. At the same time it may be appropriate for vascular surgical intervention in a manner to be worked out between general and vascular surgery. Dr. Doran has asked that the general surgeon reach out to him: Office number [phone]. PICC line no longer returns blood, so venipuncture has been taking place daily according to ICU protocol. I will order that blood work is only to be done on dialysis days to avoid such daily venipuncture. Objective - Vital Signs/Intake and Output Vital Signs (last 24 hours): Temp Pulse Resp BP Pulse Ox 98.4 F 103 H 23 132/77 100 09/15/16 08:00 09/15/16 08:00 09/15/16 08:00 09/15/16 08:00 09/15/16 08:00 Intake and Output: 09/15/16 09/15/16 06:59 18:59 Intake Total 418 310 Balance 418 310 - Medications Medications: Current Medications Acetaminophen (Tylenol 325mg Tab) 650 mg PO Q4 PRN PRN Reason: Fever >100.4 F Last Admin: 08/28/16 15:23 Dose: 650 mg Acetaminophen (Tylenol 325mg Tab) 650 mg PO Q4 PRN PRN Reason: Pain, moderate (4-7) Last Admin: 09/03/16 03:33 Dose: 650 mg Albuterol Sulfate (Albuterol 0.083% Inhal Barbie (2.5 Mg/3 Ml) Ud) 2.5 mg INH RQ4 PRN PRN Reason: Shortness of Breath Albuterol/Ipratropium (Duoneb 3 Mg/0.5 Mg (3 Ml) Ud) 3 ml INH RQID JASPER Apixaban (Eliquis) 5 mg PO BID JASPER PRN Reason: Protocol Last Admin: 09/15/16 09:07 Dose: 5 mg Aspirin (Ecotrin) 81 mg PO DAILY [facility] Last Admin: 09/15/16 09:06 Dose: 81 mg Atorvastatin Calcium (Lipitor) 40 mg PO DAILY [facility] Last Admin: 09/15/16 09:03 Dose: 40 mg Benzonatate (Tessalon Perles) 200 mg PO TID PRN PRN Reason: Cough Last Admin: 09/15/16 09:06 Dose: 200 mg Cinacalcet (Sensipar) 30 mg PO DAILY [facility] Last Admin: 09/15/16 09:05 Dose: 30 mg Epoetin Tha (Procrit) 20,000 unit IV MWF [facility] Last Admin: 09/13/16 10:07 Dose: 20,000 unit Guaifenesin/Codeine Phosphate (Robitussin W/Codeine) 10 ml PO Q6 PRN PRN Reason: Cough Last Admin: 09/15/16 03:07 Dose: 10 ml Hydrocortisone (Anusol-Hc) 1 applic [place] BID [facility] Last Admin: 09/15/16 09:05 Dose: 1 applic Piperacillin Sod/Tazobactam (Sod 2.25 gm/ Sodium Chloride) 100 mls @ 100 mls/ hr IVPB Q12 [facility] Last Admin: 09/15/16 09:13 Dose: 100 mls/hr Linezolid (Zyvox 600mg/300ml D5w) 300 mls @ 300 mls/hr IVPB Q12 [facility] Last Admin: 09/15/16 08:13 Dose: 300 mls/hr Meropenem 500 mg/ Sodium (Chloride) 100 mls @ 100 mls/hr IVPB DAILY [facility] Last Admin: 09/15/16 09:08 Dose: 100 mls/hr Amikacin Sulfate 250 mg/ (Sodium Chloride) 101 mls @ 100.609 mls/hr IVPB MWF [facility] Last Admin: 09/13/16 08:41 Dose: 100.609 mls/hr Insulin Detemir (Levemir) 30 units SC HS [facility] Last Admin: 09/14/16 21:30 Dose: 30 units Insulin Human Lispro (Humalog) 8 units SC AC [facility] Last Admin: 09/15/16 08:09 Dose: 8 units Lidocaine (Lidoderm) 1 ea TD DAILY [facility] Last Admin: 09/15/16 09:03 Dose: 1 ea Medroxyprogesterone Acetate (Provera) 10 mg PO DAILY [facility] Stop: 09/17/16 09:01 Last Admin: 09/15/16 09:02 Dose: 10 mg Nystatin (Mycostatin Oint) 1 applic TOP TID [facility] Last Admin: 09/15/16 09:04 Dose: 1 applic Ondansetron HCl (Zofran Inj) 4 mg IVP Q6 PRN PRN Reason: Nausea/Vomiting Last Admin: 09/02/16 12:11 Dose: 4 mg Pantoprazole Sodium (Protonix Ec Tab) 40 mg PO DAILY [facility] Last Admin: 09/15/16 09:02 Dose: 40 mg Sevelamer HCl (Renagel) 1,600 mg PO TID [facility] Last Admin: 09/15/16 09:05 Dose: 1,600 mg Topiramate (Topamax) 50 mg PO BID [facility] Last Admin: 09/15/16 09:03 Dose: 50 mg Vitamin B Complex/Vit C/Folic Acid (Nephro-Ajay) 1 tab PO DAILY [facility] Last Admin: 09/15/16 09:02 Dose: 1 tab - Labs Labs: 09/15/16 06:40 09/15/16 06:40 PT 16.5 SECONDS (9.6-11.2) H 08/28/16 16:11 INR 1.59 (0.92-1.08) H 08/28/16 16:11 APTT 38.7 SECONDS (23.3-32.5) H 08/28/16 16:11 - Constitutional Appears: No Acute Distress - Head Exam Head Exam: NORMAL INSPECTION - Eye Exam Eye Exam: Normal appearance - ENT Exam ENT Exam: Mucous Membranes Moist - Neck Exam Neck Exam: Normal Inspection Additional comments: R Permacath intact. - Respiratory Exam Respiratory Exam: Clear to Ausculation Bilateral - Cardiovascular Exam Cardiovascular Exam: absent: Bradycardia - Extremities Exam Additional comments: Lower half of right leg is shiny, hot, and with taut muscles/tendons. The ankle and foot are cooler. The right heel remains covered with devitalized tissue and is slightly boggy. The severely deformed ankle/foot is floppy. It is cool. The toes 4 remaining toes are gangrenous. Other extremities are unchanged. - Back Exam Back Exam: NORMAL INSPECTION - Neurological Exam Neurological Exam: Alert, Awake, CN II-XII Intact, Oriented x3 - Psychiatric Exam Psychiatric exam: Anxious, Normal Affect - Skin Additional comments: Excoriations beneath breasts are markedly improves, almost healed. Decubit in back are actually not sacral, but rather there is one at the right buttock, Covered by Duoderm and a small excoriation in the upper intergluteal area. Assessment and Plan (1) Osteomyelitis of ankle or foot Status: Acute (2) ESRD (end stage renal disease) on dialysis Status: Chronic (3) DM type 2 (diabetes mellitus, type 2) Status: Chronic (4) Coagulopathy Status: Chronic (5) Peripheral arterial occlusive disease Status: Chronic (6) SIRS (systemic inflammatory response syndrome) Status: Resolved (7) Pneumonia Status: Resolved (8) Decubitus ulcer of buttock, stage 2 Assessment & Plan: Also intergluteal. Wound care is addressing this. Status: Acute
--- NOTE | 2016-09-15 11:31 | CP.PCM.PN ---
Subjective - Date & Time of Evaluation Date of Evaluation: 09/15/16 Time of Evaluation: 11:10 - Subjective Subjective: 46 year old female seen at bedside in ICU regarding heel eschar, and leg cellulits. Pt seen resting comfortably in bed at time of visit. Patient states that she has had no major overnight events. She denies recent f/n/v/c/sob/cp at this time. Reports minor pain to her right foot. Patient's multipodus boot is intact to right heel at time of visit. Objective - Vital Signs/Intake and Output Vital Signs (last 24 hours): Temp Pulse Resp BP Pulse Ox 98.4 F 103 H 23 132/77 100 09/15/16 08:00 09/15/16 08:00 09/15/16 08:00 09/15/16 08:00 09/15/16 08:00 Intake and Output: 09/15/16 09/15/16 06:59 18:59 Intake Total 418 310 Balance 418 310 - Medications Medications: Current Medications Acetaminophen (Tylenol 325mg Tab) 650 mg PO Q4 PRN PRN Reason: Fever >100.4 F Last Admin: 08/28/16 15:23 Dose: 650 mg Acetaminophen (Tylenol 325mg Tab) 650 mg PO Q4 PRN PRN Reason: Pain, moderate (4-7) Last Admin: 09/03/16 03:33 Dose: 650 mg Albuterol Sulfate (Albuterol 0.083% Inhal Barbie (2.5 Mg/3 Ml) Ud) 2.5 mg INH RQ4 PRN PRN Reason: Shortness of Breath Albuterol/Ipratropium (Duoneb 3 Mg/0.5 Mg (3 Ml) Ud) 3 ml INH RQID JASPER Apixaban (Eliquis) 5 mg PO BID JASPER PRN Reason: Protocol Last Admin: 09/15/16 09:07 Dose: 5 mg Aspirin (Ecotrin) 81 mg PO DAILY [facility] Last Admin: 09/15/16 09:06 Dose: 81 mg Atorvastatin Calcium (Lipitor) 40 mg PO DAILY [facility] Last Admin: 09/15/16 09:03 Dose: 40 mg Benzonatate (Tessalon Perles) 200 mg PO TID PRN PRN Reason: Cough Last Admin: 09/15/16 09:06 Dose: 200 mg Cinacalcet (Sensipar) 30 mg PO DAILY [facility] Last Admin: 09/15/16 09:05 Dose: 30 mg Epoetin Tha (Procrit) 20,000 unit IV MWF [facility] Last Admin: 09/13/16 10:07 Dose: 20,000 unit Fluconazole (Diflucan) 100 mg PO DAILY [facility] Guaifenesin/Codeine Phosphate (Robitussin W/Codeine) 10 ml PO Q6 PRN PRN Reason: Cough Last Admin: 09/15/16 03:07 Dose: 10 ml Hydrocortisone (Anusol-Hc) 1 applic [place] BID [facility] Last Admin: 09/15/16 09:05 Dose: 1 applic Piperacillin Sod/Tazobactam (Sod 2.25 gm/ Sodium Chloride) 100 mls @ 100 mls/ hr IVPB Q12 [facility] Last Admin: 09/15/16 09:13 Dose: 100 mls/hr Meropenem 500 mg/ Sodium (Chloride) 100 mls @ 100 mls/hr IVPB DAILY [facility] Last Admin: 09/15/16 09:08 Dose: 100 mls/hr Amikacin Sulfate 250 mg/ (Sodium Chloride) 101 mls @ 100.609 mls/hr IVPB MWF [facility] Last Admin: 09/13/16 08:41 Dose: 100.609 mls/hr Piperacillin Sod/Tazobactam (Sod 2.25 gm/ Sodium Chloride) 100 mls @ 100 mls/ hr IVPB Q12 [facility] Linezolid (Zyvox 600mg/300ml D5w) 600 mg in 300 mls @ 300 mls/hr IVPB Q12 [facility] Insulin Detemir (Levemir) 30 units SC HS [facility] Last Admin: 09/14/16 21:30 Dose: 30 units Insulin Human Lispro (Humalog) 8 units SC AC [facility] Last Admin: 09/15/16 08:09 Dose: 8 units Lidocaine (Lidoderm) 1 ea TD DAILY [facility] Last Admin: 09/15/16 09:03 Dose: 1 ea Medroxyprogesterone Acetate (Provera) 10 mg PO DAILY [facility] Stop: 09/17/16 09:01 Last Admin: 09/15/16 09:02 Dose: 10 mg Nystatin (Mycostatin Oint) 1 applic TOP TID [facility] Last Admin: 09/15/16 09:04 Dose: 1 applic Ondansetron HCl (Zofran Inj) 4 mg IVP Q6 PRN PRN Reason: Nausea/Vomiting Last Admin: 09/02/16 12:11 Dose: 4 mg Pantoprazole Sodium (Protonix Ec Tab) 40 mg PO DAILY [facility] Last Admin: 09/15/16 09:02 Dose: 40 mg Sevelamer HCl (Renagel) 1,600 mg PO TID [facility] Last Admin: 09/15/16 09:05 Dose: 1,600 mg Topiramate (Topamax) 50 mg PO BID [facility] Last Admin: 09/15/16 09:03 Dose: 50 mg Vitamin B Complex/Vit C/Folic Acid (Nephro-Ajay) 1 tab PO DAILY [facility] Last Admin: 09/15/16 09:02 Dose: 1 tab - Labs Labs: 09/15/16 06:40 09/15/16 06:40 PT 16.5 SECONDS (9.6-11.2) H 08/28/16 16:11 INR 1.59 (0.92-1.08) H 08/28/16 16:11 APTT 38.7 SECONDS (23.3-32.5) H 08/28/16 16:11 - Constitutional Appears: No Acute Distress, Chronically Ill - Extremities Exam Additional comments: Right lower extremity focused exam: VASC- DP and PT pulses non-palpable, capillary refill < 5 sec to digits x 5, mild 1+ pitting edema noted to anterior aspect of leg and dorsum of foot, signs of decreased edema with return of relaxes skin tension lines. Leg callor present , absent erythema. NEURO-Gross pedal sensation is diminished DERM- Superficial dry eschar noted to plantar aspect of heel, with noted sanguinous crust along periphery, with noted serous exudate crust, absent purulence. Absent drainage on compression. No increased warmth noted, no local or ascending erythema, no acute signs infection. ORTHO- Mild tenderness noted to distal posterior and lateral legs, severe varus deformity with dislocation of ankle noted. - Neurological Exam Neurological Exam: Alert, Awake, Oriented x3 - Psychiatric Exam Psychiatric exam: Normal Affect, Normal Mood Assessment and Plan - Assessment and Plan (Free Text) Assessment: 46 yo female patient w/ pmhx of HTN, ESRD (on dialysis), coagulopathy, DM, charcot right foot PVD w/ stable dry eschar of right heel & cellulits. Plan: patient examined and evaluated discussed in detail with attending Dr. Resendez chart, labs, vitals reviewed;afebrile, WBC 12.9 dressing change with wet to dry sterile gauze, and DSD multipodus boot to be worn at all times while in bed continue IV abx per ID podiatry will continue to follow patient while in house
--- NOTE | 2016-09-15 12:46 | PN ---
DATE: 09/15/2016 ROOM: 421 ICU. This is a 46-year-old female with recent uncontrolled type 2 insulin-requiring diabetes managem ent. Her glycemic levels are fluctuating, but improved, and the latest chemistries showed a BUN of 38, sod ium 138, potassium 4.7, chloride 100, CO2 24, glucose 226 and creatinine 6.2. So at this time, we will continue the same basal and bolus insulin regimen as given with Levemir give n as 30 units subQ at bedtime daily and Humalog given as 8 units subQ t.i.d. before meals as ordered. We will obtain serial chemistries and supplement accordingly as needed. We will follow. Irene Ambrose MD cc: [id number] TT: 09/15/2016 12:45:31 Confirmation # [id number] Dictation # [id number] en
--- NOTE | 2016-09-15 14:02 | CP.PCM.PN ---
Subjective - Date & Time of Evaluation Date of Evaluation: 09/15/16 Time of Evaluation: 01:45 - Subjective Subjective: Appears comdoetable. No c/o sob Objective - Vital Signs/Intake and Output Vital Signs (last 24 hours): Temp Pulse Resp BP Pulse Ox 98.4 F 111 H 18 112/78 100 09/15/16 12:00 09/15/16 12:00 09/15/16 12:00 09/15/16 12:00 09/15/16 12:00 Intake and Output: 09/15/16 09/15/16 06:59 18:59 Intake Total 418 310 Balance 418 310 - Medications Medications: Current Medications Acetaminophen (Tylenol 325mg Tab) 650 mg PO Q4 PRN PRN Reason: Fever >100.4 F Last Admin: 08/28/16 15:23 Dose: 650 mg Acetaminophen (Tylenol 325mg Tab) 650 mg PO Q4 PRN PRN Reason: Pain, moderate (4-7) Last Admin: 09/03/16 03:33 Dose: 650 mg Albuterol Sulfate (Albuterol 0.083% Inhal Barbie (2.5 Mg/3 Ml) Ud) 2.5 mg INH RQ4 PRN PRN Reason: Shortness of Breath Albuterol/Ipratropium (Duoneb 3 Mg/0.5 Mg (3 Ml) Ud) 3 ml INH RQID [facility] Apixaban (Eliquis) 5 mg PO BID [facility] PRN Reason: Protocol Last Admin: 09/15/16 09:07 Dose: 5 mg Aspirin (Ecotrin) 81 mg PO DAILY [facility] Last Admin: 09/15/16 09:06 Dose: 81 mg Atorvastatin Calcium (Lipitor) 40 mg PO DAILY [facility] Last Admin: 09/15/16 09:03 Dose: 40 mg Benzonatate (Tessalon Perles) 200 mg PO TID PRN PRN Reason: Cough Last Admin: 09/15/16 09:06 Dose: 200 mg Cinacalcet (Sensipar) 30 mg PO DAILY [facility] Last Admin: 09/15/16 09:05 Dose: 30 mg Epoetin Tha (Procrit) 20,000 unit IV MWF [facility] Last Admin: 09/13/16 10:07 Dose: 20,000 unit Fluconazole (Diflucan) 100 mg PO DAILY [facility] Guaifenesin/Codeine Phosphate (Robitussin W/Codeine) 10 ml PO Q6 PRN PRN Reason: Cough Last Admin: 09/15/16 03:07 Dose: 10 ml Hydrocortisone (Anusol-Hc) 1 applic ID BID [facility] Last Admin: 09/15/16 09:05 Dose: 1 applic Piperacillin Sod/Tazobactam (Sod 2.25 gm/ Sodium Chloride) 100 mls @ 100 mls/ hr IVPB Q12 [facility] Last Admin: 09/15/16 09:13 Dose: 100 mls/hr Meropenem 500 mg/ Sodium (Chloride) 100 mls @ 100 mls/hr IVPB DAILY [facility] Last Admin: 09/15/16 09:08 Dose: 100 mls/hr Amikacin Sulfate 250 mg/ (Sodium Chloride) 101 mls @ 100.609 mls/hr IVPB MWF [facility] Last Admin: 09/13/16 08:41 Dose: 100.609 mls/hr Piperacillin Sod/Tazobactam (Sod 2.25 gm/ Sodium Chloride) 100 mls @ 100 mls/ hr IVPB Q12 [facility] Linezolid (Zyvox 600mg/300ml D5w) 600 mg in 300 mls @ 300 mls/hr IVPB Q12 [facility] Insulin Detemir (Levemir) 30 units SC HS [facility] Last Admin: 09/14/16 21:30 Dose: 30 units Insulin Human Lispro (Humalog) 8 units SC AC [facility] Last Admin: 09/15/16 11:40 Dose: 8 units Lidocaine (Lidoderm) 1 ea TD DAILY [facility] Last Admin: 09/15/16 09:03 Dose: 1 ea Medroxyprogesterone Acetate (Provera) 10 mg PO DAILY [facility] Stop: 09/17/16 09:01 Last Admin: 09/15/16 09:02 Dose: 10 mg Nystatin (Mycostatin Oint) 1 applic TOP TID [facility] Last Admin: 09/15/16 12:32 Dose: 1 applic Ondansetron HCl (Zofran Inj) 4 mg IVP Q6 PRN PRN Reason: Nausea/Vomiting Last Admin: 09/02/16 12:11 Dose: 4 mg Pantoprazole Sodium (Protonix Ec Tab) 40 mg PO DAILY [facility] Last Admin: 09/15/16 09:02 Dose: 40 mg Sevelamer HCl (Renagel) 1,600 mg PO TID [facility] Last Admin: 09/15/16 12:31 Dose: 1,600 mg Topiramate (Topamax) 50 mg PO BID [facility] Last Admin: 09/15/16 09:03 Dose: 50 mg Vitamin B Complex/Vit C/Folic Acid (Nephro-Ajay) 1 tab PO DAILY [facility] Last Admin: 09/15/16 09:02 Dose: 1 tab - Labs Labs: 09/15/16 06:40 09/15/16 06:40 PT 16.5 SECONDS (9.6-11.2) H 08/28/16 16:11 INR 1.59 (0.92-1.08) H 08/28/16 16:11 APTT 38.7 SECONDS (23.3-32.5) H 08/28/16 16:11 - Respiratory Exam Additional comments: Lungs clear - Cardiovascular Exam Additional comments: Sinus tach 113/min - Extremities Exam Additional comments: Lt BKA Assessment and Plan - Assessment and Plan (Free Text) Assessment: ESRD on HD Sepsis Anemis Rt leg OM Plan: Bloos pressures are stable For dialysis tomorrow Leukocytosis is improving Monitor Hb
[2016-09-15] MEDS: Albuterol-Ipratrop 3 mg / 0.5 (3 ml) UD INH SCH ×2 (15:59→19:53)
[2016-09-15] MEDS: Linezolid 600 mg in D5W 300 ml 600 MG/300 ML BAG IVPB SCH (21:15)
[2016-09-15] MEDS: Insulin Detemir 100 Units/ml Inj SC SCH (22:23)
--- NOTE | 2016-09-15 23:06 | CP.PCM.PN ---
Subjective - Date & Time of Evaluation Date of Evaluation: 09/15/16 Time of Evaluation: 19:40 - Subjective Subjective: No seizures, no syncopal spells, she is in a better mood but right lower leg pain is reported. She is on Topamax 50 mg Q12 hrs She is getting Hemodialysis in AM. Objective - Vital Signs/Intake and Output Vital Signs (last 24 hours): Temp Pulse Resp BP Pulse Ox 97.9 F 117 H 12 104/73 100 09/15/16 20:00 09/15/16 22:00 09/15/16 22:00 09/15/16 22:00 09/15/16 22:00 Intake and Output: 09/15/16 09/16/16 18:59 06:59 Intake Total 310 Balance 310 - Medications Medications: Current Medications Acetaminophen (Tylenol 325mg Tab) 650 mg PO Q4 PRN PRN Reason: Fever >100.4 F Last Admin: 08/28/16 15:23 Dose: 650 mg Acetaminophen (Tylenol 325mg Tab) 650 mg PO Q4 PRN PRN Reason: Pain, moderate (4-7) Last Admin: 09/03/16 03:33 Dose: 650 mg Albuterol Sulfate (Albuterol 0.083% Inhal Barbie (2.5 Mg/3 Ml) Ud) 2.5 mg INH RQ4 PRN PRN Reason: Shortness of Breath Albuterol/Ipratropium (Duoneb 3 Mg/0.5 Mg (3 Ml) Ud) 3 ml INH RQID [facility] Last Admin: 09/15/16 19:53 Dose: 3 ml Apixaban (Eliquis) 5 mg PO BID [facility] PRN Reason: Protocol Last Admin: 09/15/16 17:17 Dose: 5 mg Aspirin (Ecotrin) 81 mg PO DAILY [facility] Last Admin: 09/15/16 09:06 Dose: 81 mg Atorvastatin Calcium (Lipitor) 40 mg PO DAILY [facility] Last Admin: 09/15/16 09:03 Dose: 40 mg Benzonatate (Tessalon Perles) 200 mg PO TID PRN PRN Reason: Cough Last Admin: 09/15/16 09:06 Dose: 200 mg Cinacalcet (Sensipar) 30 mg PO DAILY [facility] Last Admin: 09/15/16 09:05 Dose: 30 mg Epoetin Tha (Procrit) 20,000 unit IV MWF [facility] Last Admin: 09/13/16 10:07 Dose: 20,000 unit Fluconazole (Diflucan) 100 mg PO DAILY [facility] Guaifenesin/Codeine Phosphate (Robitussin W/Codeine) 10 ml PO Q6 PRN PRN Reason: Cough Last Admin: 09/15/16 03:07 Dose: 10 ml Hydrocortisone (Anusol-Hc) 1 applic [place] BID [facility] Last Admin: 09/15/16 17:16 Dose: 1 applic Piperacillin Sod/Tazobactam (Sod 2.25 gm/ Sodium Chloride) 100 mls @ 100 mls/ hr IVPB Q12 [facility] Last Admin: 09/15/16 09:13 Dose: 100 mls/hr Meropenem 500 mg/ Sodium (Chloride) 100 mls @ 100 mls/hr IVPB DAILY [facility] Last Admin: 09/15/16 09:08 Dose: 100 mls/hr Amikacin Sulfate 250 mg/ (Sodium Chloride) 101 mls @ 100.609 [facility]ls[facility] Last Admin: 09/13/16 08:41 Dose: 100.609 mls/hr Piperacillin Sod/Tazobactam (Sod 2.25 gm/ Sodium Chloride) 100 mls @ 100 mls/ hr IVPB Q12 [facility] Last Admin: 09/15/16 21:14 Dose: 100 mls/hr Linezolid (Zyvox 600mg/300ml D5w) 600 mg in 300 mls @ 300 mls/hr IVPB Q12 [facility] Last Admin: 09/15/16 21:15 Dose: 300 mls/hr Insulin Detemir (Levemir) 30 units SC HS [facility] Last Admin: 09/15/16 22:23 Dose: 30 units Insulin Human Lispro (Humalog) 8 units SC AC [facility] Last Admin: 09/15/16 17:18 Dose: 8 units Lidocaine (Lidoderm) 1 ea TD DAILY [facility] Last Admin: 09/15/16 09:03 Dose: 1 ea Medroxyprogesterone Acetate (Provera) 10 mg PO DAILY [facility] Stop: 09/17/16 09:01 Last Admin: 09/15/16 09:02 Dose: 10 mg Nystatin (Mycostatin Oint) 1 applic TOP TID [facility] Last Admin: 09/15/16 17:17 Dose: 1 applic Ondansetron HCl (Zofran Inj) 4 mg IVP Q6 PRN PRN Reason: Nausea/Vomiting Last Admin: 09/02/16 12:11 Dose: 4 mg Pantoprazole Sodium (Protonix Ec Tab) 40 mg PO DAILY [facility] Last Admin: 09/15/16 09:02 Dose: 40 mg Sevelamer HCl (Renagel) 1,600 mg PO TID [facility] Last Admin: 09/15/16 17:20 Dose: 1,600 mg Topiramate (Topamax) 50 mg PO BID [facility] Last Admin: 09/15/16 17:20 Dose: 50 mg Vitamin B Complex/Vit C/Folic Acid (Nephro-Ajay) 1 tab PO DAILY [facility] Last Admin: 09/15/16 09:02 Dose: 1 tab - Labs Labs: 09/15/16 06:40 09/15/16 06:40 PT 16.5 SECONDS (9.6-11.2) H 08/28/16 16:11 INR 1.59 (0.92-1.08) H 08/28/16 16:11 APTT 38.7 SECONDS (23.3-32.5) H 08/28/16 16:11 Assessment and Plan (1) Diabetes Status: Chronic (2) ESRD (end stage renal disease) Status: Chronic (3) Cellulitis of leg Status: Acute (4) Hyperlipidemia Status: Acute (5) Back pain Status: Acute (6) Bacteremia due to Gram-negative bacteria Status: Acute (7) Diabetes mellitus type 2 with peripheral artery disease Status: Acute (8) PVD (peripheral vascular disease) Status: Acute
--- NOTE | 2016-09-16 06:38 | CP.PCM.PN ---
Subjective - Date & Time of Evaluation Date of Evaluation: 09/16/16 Time of Evaluation: 08:40 - Subjective Subjective: 46 year old female seen at bedside in ICU regarding heel eschar, and leg cellulits. Pt seen resting comfortably in bed at time of visit. Patient states that she has had no major overnight events. She denies recent f/n/v/c/sob/cp at this time. Reports pain to her right foot. Patient's multipodus boot is intact to right heel at time of visit. Objective - Vital Signs/Intake and Output Vital Signs (last 24 hours): Temp Pulse Resp BP Pulse Ox 98.0 F 115 H 14 104/53 L 100 09/16/16 00:00 09/16/16 00:00 09/16/16 00:00 09/16/16 00:00 09/16/16 00:00 Intake and Output: 09/15/16 09/16/16 18:59 06:59 Intake Total 310 Balance 310 - Medications Medications: Current Medications Acetaminophen (Tylenol 325mg Tab) 650 mg PO Q4 PRN PRN Reason: Fever >100.4 F Last Admin: 08/28/16 15:23 Dose: 650 mg Acetaminophen (Tylenol 325mg Tab) 650 mg PO Q4 PRN PRN Reason: Pain, moderate (4-7) Last Admin: 09/03/16 03:33 Dose: 650 mg Albuterol Sulfate (Albuterol 0.083% Inhal Barbie (2.5 Mg/3 Ml) Ud) 2.5 mg INH RQ4 PRN PRN Reason: Shortness of Breath Albuterol/Ipratropium (Duoneb 3 Mg/0.5 Mg (3 Ml) Ud) 3 ml INH RQID [facility] Last Admin: 09/15/16 19:53 Dose: 3 ml Apixaban (Eliquis) 5 mg PO BID [facility] PRN Reason: Protocol Last Admin: 09/15/16 17:17 Dose: 5 mg Aspirin (Ecotrin) 81 mg PO DAILY [facility] Last Admin: 09/15/16 09:06 Dose: 81 mg Atorvastatin Calcium (Lipitor) 40 mg PO DAILY [facility] Last Admin: 09/15/16 09:03 Dose: 40 mg Benzonatate (Tessalon Perles) 200 mg PO TID PRN PRN Reason: Cough Last Admin: 09/15/16 09:06 Dose: 200 mg Cinacalcet (Sensipar) 30 mg PO DAILY [facility] Last Admin: 09/15/16 09:05 Dose: 30 mg Epoetin Tha (Procrit) 20,000 unit IV MWF [facility] Last Admin: 09/13/16 10:07 Dose: 20,000 unit Fluconazole (Diflucan) 100 mg PO DAILY [facility] Guaifenesin/Codeine Phosphate (Robitussin W/Codeine) 10 ml PO Q6 PRN PRN Reason: Cough Last Admin: 09/15/16 03:07 Dose: 10 ml Hydrocortisone (Anusol-Hc) 1 applic [place] BID [facility] Last Admin: 09/15/16 17:16 Dose: 1 applic Piperacillin Sod/Tazobactam (Sod 2.25 gm/ Sodium Chloride) 100 mls @ 100 mls/ hr IVPB Q12 [facility] Last Admin: 09/15/16 09:13 Dose: 100 mls/hr Meropenem 500 mg/ Sodium (Chloride) 100 mls @ 100 mls/hr IVPB DAILY [facility] Last Admin: 09/15/16 09:08 Dose: 100 mls/hr Amikacin Sulfate 250 mg/ (Sodium Chloride) 101 mls @ 100.609 mls/hr IVPB MWF [facility] Last Admin: 09/13/16 08:41 Dose: 100.609 mls/hr Piperacillin Sod/Tazobactam (Sod 2.25 gm/ Sodium Chloride) 100 mls @ 100 mls/ hr IVPB Q12 [facility] Last Admin: 09/15/16 21:14 Dose: 100 mls/hr Linezolid (Zyvox 600mg/300ml D5w) 600 mg in 300 mls @ 300 mls/hr IVPB Q12 [facility] Last Admin: 09/15/16 21:15 Dose: 300 mls/hr Insulin Detemir (Levemir) 30 units SC HS [facility] Last Admin: 09/15/16 22:23 Dose: 30 units Insulin Human Lispro (Humalog) 8 units SC AC [facility] Last Admin: 09/15/16 17:18 Dose: 8 units Lidocaine (Lidoderm) 1 ea TD DAILY [facility] Last Admin: 09/15/16 09:03 Dose: 1 ea Medroxyprogesterone Acetate (Provera) 10 mg PO DAILY [facility] Stop: 09/17/16 09:01 Last Admin: 09/15/16 09:02 Dose: 10 mg Nystatin (Mycostatin Oint) 1 applic TOP TID [facility] Last Admin: 09/15/16 17:17 Dose: 1 applic Ondansetron HCl (Zofran Inj) 4 mg IVP Q6 PRN PRN Reason: Nausea/Vomiting Last Admin: 09/02/16 12:11 Dose: 4 mg Pantoprazole Sodium (Protonix Ec Tab) 40 mg PO DAILY [facility] Last Admin: 09/15/16 09:02 Dose: 40 mg Sevelamer HCl (Renagel) 1,600 mg PO TID [facility] Last Admin: 09/15/16 17:20 Dose: 1,600 mg Topiramate (Topamax) 50 mg PO BID [facility] Last Admin: 09/15/16 17:20 Dose: 50 mg Vitamin B Complex/Vit C/Folic Acid (Nephro-Ajay) 1 tab PO DAILY [facility] Last Admin: 09/15/16 09:02 Dose: 1 tab - Labs Labs: 09/15/16 06:40 09/15/16 06:40 PT 16.5 SECONDS (9.6-11.2) H 08/28/16 16:11 INR 1.59 (0.92-1.08) H 08/28/16 16:11 APTT 38.7 SECONDS (23.3-32.5) H 08/28/16 16:11 - Constitutional Appears: Non-toxic, No Acute Distress, Chronically Ill - Extremities Exam Additional comments: Right lower extremity focused exam: VASC- DP and PT pulses non-palpable, capillary refill < 5 sec to digits x 5, mild 1+ pitting edema noted to anterior aspect of leg and dorsum of foot, signs of decreased edema with return of relaxes skin tension lines. Leg callor present , absent erythema. NEURO-Gross pedal sensation is diminished DERM- Superficial dry eschar noted to plantar aspect of heel, with noted sanguinous crust along periphery, with noted serous exudate crust, absent purulence. Absent drainage on compression. No increased warmth noted, no local or ascending erythema, no acute signs infection. ORTHO- Mild tenderness noted to distal posterior and lateral legs, severe varus deformity with dislocation of ankle noted. - Neurological Exam Neurological Exam: Alert, Awake, Oriented x3 - Psychiatric Exam Psychiatric exam: Normal Affect, Normal Mood Assessment and Plan - Assessment and Plan (Free Text) Assessment: 46 yo female patient w/ pmhx of HTN, ESRD (on dialysis), coagulopathy, DM, charcot right foot PVD w/ stable dry eschar of right heel & cellulits. Plan: patient examined and evaluated discussed in detail with attending Dr. Resendez chart, labs, vitals reviewed;afebrile, WBC 12.9 dressing change with wet to dry sterile gauze, and DSD. Distal leg pain will continue to be monitored. With exudate expression from eschar circumference increased serous flow noted to foot, indicating potential to heal. Potential secondary imagine to evaluate progression of leg soft tissue reduction. multipodus boot to be worn at all times while in bed continue IV abx per ID podiatry will continue to follow patient while in ho
[2016-09-16] MEDS: Insulin Lispro (humaLOG) 100 Units/ml Inj SC SCH ×3 (07:01→19:10)
[2016-09-16] MEDS: Multivitamin Vitamin B Complex (Nephro-Vite) Tab PO SCH (08:59)
[2016-09-16] MEDS: Pantoprazole 40 mg EC Tab PO SCH (09:00)
[2016-09-16] MEDS: Lidocaine 5% Patch TD SCH (09:04)
--- NOTE | 2016-09-16 09:14 | PN ---
DATE: 09/14/2016 LOCATION: Room 421, ICU. SUBJECTIVE: This is a 46-year-old female with recent uncontrolled type 2 insulin-requiring diabetes now being followed closely for metabolic ____. Her glycemic levels are fluctuating as noted and the latest chemistries showed a BUN of 20, sodium 138, potassium 4.2, chloride of 100, CO2 of 25, glucose 286 and creatinine 4.8. Her glucose levels have ranged from 125-242 mg/dL. So at this time, we maeve l modify once again her basal and bolus insulin regimen and increase the Levemir to ____ units subQ a t bedtime daily to start tonight. We will continue the low dose correction scale using Humalog insul in as ordered. We will also continue the serial chemistries and we will supplement accordingly as ne eded. Moreover, we will modify her basal insulin and increase the Levemir to 80 units subQ at bedtim e daily as given. We will continue the Humalog given as 8 units subQ t.i.d. before meals as given. ____. We will follow. Irene Ambrose MD cc: [id number] TT: 09/14/2016 13:53:09 Confirmation # [id number] Dictation # [id number] tn
[2016-09-16] MEDS: Albuterol-Ipratrop 3 mg / 0.5 (3 ml) UD INH SCH ×4 (09:18→20:10)
[2016-09-16] MEDS: Nystatin Ointment TOP SCH ×3 (10:16→18:38)
--- NOTE | 2016-09-16 11:25 | CP.PCM.PN ---
Subjective - Date & Time of Evaluation Date of Evaluation: 09/16/16 Time of Evaluation: 10:50 - Subjective Subjective: Comfortable in bed Objective - Vital Signs/Intake and Output Vital Signs (last 24 hours): Temp Pulse Resp BP Pulse Ox 98.4 F 117 H 23 95/40 L 100 09/16/16 08:00 09/16/16 10:00 09/16/16 10:00 09/16/16 10:00 09/16/16 10:00 Intake and Output: 09/16/16 09/16/16 06:59 18:59 Intake Total 337 Output Total 1 Balance 336 - Medications Medications: Current Medications Acetaminophen (Tylenol 325mg Tab) 650 mg PO Q4 PRN PRN Reason: Fever >100.4 F Last Admin: 08/28/16 15:23 Dose: 650 mg Acetaminophen (Tylenol 325mg Tab) 650 mg PO Q4 PRN PRN Reason: Pain, moderate (4-7) Last Admin: 09/03/16 03:33 Dose: 650 mg Albuterol Sulfate (Albuterol 0.083% Inhal Barbie (2.5 Mg/3 Ml) Ud) 2.5 mg INH RQ4 PRN PRN Reason: Shortness of Breath Albuterol/Ipratropium (Duoneb 3 Mg/0.5 Mg (3 Ml) Ud) 3 ml INH RQID [facility] Last Admin: 09/16/16 09:18 Dose: 3 ml Apixaban (Eliquis) 5 mg PO BID [facility] PRN Reason: Protocol Last Admin: 09/15/16 17:17 Dose: 5 mg Aspirin (Ecotrin) 81 mg PO DAILY [facility] Last Admin: 09/16/16 08:58 Dose: 81 mg Atorvastatin Calcium (Lipitor) 40 mg PO DAILY [facility] Last Admin: 09/15/16 09:03 Dose: 40 mg Benzonatate (Tessalon Perles) 200 mg PO TID PRN PRN Reason: Cough Last Admin: 09/15/16 09:06 Dose: 200 mg Cinacalcet (Sensipar) 30 mg PO DAILY [facility] Last Admin: 09/15/16 09:05 Dose: 30 mg Epoetin Tha (Procrit) 20,000 unit IV MWF [facility] Last Admin: 09/13/16 10:07 Dose: 20,000 unit Fluconazole (Diflucan) 100 mg PO DAILY [facility] Last Admin: 09/16/16 08:59 Dose: 100 mg Guaifenesin/Codeine Phosphate (Robitussin W/Codeine) 10 ml PO Q6 PRN PRN Reason: Cough Last Admin: 09/15/16 03:07 Dose: 10 ml Hydrocortisone (Anusol-Hc) 1 applic [place] BID [facility] Last Admin: 09/15/16 17:16 Dose: 1 applic Meropenem 500 mg/ Sodium (Chloride) 100 mls @ 100 mls/hr IVPB DAILY [facility] Last Admin: 09/15/16 09:08 Dose: 100 mls/hr Amikacin Sulfate 250 mg/ (Sodium Chloride) 101 mls @ 100.609 mls/hr IVPB MWF [facility] Last Admin: 09/13/16 08:41 Dose: 100.609 mls/hr Piperacillin Sod/Tazobactam (Sod 2.25 gm/ Sodium Chloride) 100 mls @ 100 mls/ hr IVPB Q12 [facility] Last Admin: 09/15/16 21:14 Dose: 100 mls/hr Linezolid (Zyvox 600mg/300ml D5w) 600 mg in 300 mls @ 300 mls/hr IVPB Q12 [facility] Last Admin: 09/15/16 21:15 Dose: 300 mls/hr Insulin Detemir (Levemir) 30 units SC HS [facility] Last Admin: 09/15/16 22:23 Dose: 30 units Insulin Human Lispro (Humalog) 8 units SC AC [facility] Last Admin: 09/16/16 07:01 Dose: 8 units Lidocaine (Lidoderm) 1 ea TD DAILY [facility] Last Admin: 09/16/16 09:04 Dose: 1 ea Medroxyprogesterone Acetate (Provera) 10 mg PO DAILY [facility] Stop: 09/17/16 09:01 Last Admin: 09/15/16 09:02 Dose: 10 mg Nystatin (Mycostatin Oint) 1 applic TOP TID [facility] Last Admin: 09/16/16 10:16 Dose: 1 applic Ondansetron HCl (Zofran Inj) 4 mg IVP Q6 PRN PRN Reason: Nausea/Vomiting Last Admin: 09/02/16 12:11 Dose: 4 mg Pantoprazole Sodium (Protonix Ec Tab) 40 mg PO DAILY [facility] Last Admin: 09/16/16 09:00 Dose: 40 mg Sevelamer HCl (Renagel) 1,600 mg PO TID [facility] Last Admin: 09/16/16 09:00 Dose: 1,600 mg Topiramate (Topamax) 50 mg PO BID [facility] Last Admin: 09/16/16 08:58 Dose: 50 mg Vitamin B Complex/Vit C/Folic Acid (Nephro-Ajay) 1 tab PO DAILY [facility] Last Admin: 09/16/16 08:59 Dose: 1 tab - Labs Labs: 09/15/16 06:40 09/15/16 06:40 PT 16.5 SECONDS (9.6-11.2) H 08/28/16 16:11 INR 1.59 (0.92-1.08) H 08/28/16 16:11 APTT 38.7 SECONDS (23.3-32.5) H 08/28/16 16:11 - Respiratory Exam Additional comments: Lungs clear - Cardiovascular Exam Cardiovascular Exam: REGULAR RHYTHM Additional comments: S.tach 114/min - Extremities Exam Additional comments: Lt BKA Assessment and Plan - Assessment and Plan (Free Text) Assessment: ESRD on maintenance HD IDDM S/P hypotension OM of Rt leg Plan: For dialysis today Stable on dialysis Cont HD MWF
--- NOTE | 2016-09-16 12:28 | PN ---
DATE: 09/16/2016 ROOM: 421. This is a 46-year-old female with recent ____ and latest chemistries showed a BUN of 38, sodium 138, potassium 4.7, chloride 100, CO2 24, glucose 226 and creatinine 6.2. So at this time, will continue the current the same basal and bolus insulin regimen as given with Hum alog given as 8 units subQ t.i.d. before meals and Levemir given as 30 units subQ at bedtime daily as given. Will titrate incrementally as indicated to optimize metabolic control. Will follow and advi se accordingly. Irene Ambrose MD cc: [id number] TT: 09/16/2016 12:27:55 Confirmation # [id number] Dictation # [id number] mn
[2016-09-16] MEDS ORDERED: Lidocaine 1% Inj (20ml) ONE (13:17)
--- NOTE | 2016-09-16 13:55 | PCM.SURG1 ---
Surgeon's Initial Post Op Note - Surgeon's Notes Surgeon: Ramana Caicedo MD Cross Tie Maker: NONE Type of Anesthesia: Local Pre-Operative Diagnosis: Poor venous access, osteomyelitis, central venous occlusion Operative Findings: Left femoral AVG. Patent left femoral vein. Post-Operative Diagnosis: Poor venous access, osteomyelitis, central venous occlusion Operation Performed: Left femoral single lumen picc placement, 5 fr. Tip in IVC. Specimen/Specimens Removed: None Estimated Blood Loss: EBL {In ML}: 2 Drains Used: No Drains Post-Op Condition: Poor Date of Surgery/Procedure: 09/16/16 Time of Surgery/Procedure: 13:50
[2016-09-16] MEDS: Linezolid 600 mg in D5W 300 ml 600 MG/300 ML BAG IVPB SCH ×2 (14:18→21:31)
--- NOTE | 2016-09-16 14:48 | CP.PCM.PN ---
Subjective - Date & Time of Evaluation Date of Evaluation: 09/16/16 Time of Evaluation: 14:46 - Subjective Subjective: BELINDA PICC line became dislodged and needed to be replaced to allow for her 4 iv antibiotics (none of which can be given at time of hemodialysis). Fortunately, Dr. Caicedo was able to place a left femoral vein PICC line. Problems: OSTEOMYELITIS right heel and myositis right lower leg musculature - with warm to touch and severe calf tenderness on even slight pressure. Dr. Doran, the vascular surgeon, has recommended a right BK amputation. Dr. Gordon has recommended against this. I have given Dr. Heidi Doran's phone number so they can discuss this. Those physicians who have been following the patient since her admission on 08/27/16 were relieved that the septic shock was overcome by intensive volume and pressor support and iv antibiotics, but see little real response in terms of healing of the right lower leg and foot. Indeed, there is a new foot pathogen (Eneida parapsilosis) and the ever present danger of antibiotic resistance and recurrence of sepsis. DM - insulin dependent - being managed by Dr. Ambrose with long and short acting insulins. To minimize complications, blood is only tested for glucose at the time of hemodialysis and on a prn basis. PERIPHERAL ARTERIAL DISEASE - COAGLUOPATHY (THROMBOPHILIA) - on Eliquis and ASA - Dr. Andrew Owen will work with surgeon on any needed perioperative anticoagulation. ESRD - for repeat hemodialysis today. This may be limited because blood pressures are running low. Dr. Alta Guadarrama & colleagues manage this. DR. Richard OWEN has cleared the patient for any anticipated surgery. Goals: Remove the source of infection by performing a BKA, culturing all bone and muscle and other tissue speciments for aerobes, anaerobes, and fungi. Continue iv antibiotics for 6-8 weeks to assure eradiation of all infection. Aggressive rehabilitation to allow patient to ambulate on BK prostheses - if only for short distances and transfers. If the current Permacath cannot be sterilized, then insertion of a new one at a site to be determined by vascular surgeon. Currently we are avoiding use of the nect for temporary iv access to protect the jugulars for future use. Objective - Vital Signs/Intake and Output Vital Signs (last 24 hours): Temp Pulse Resp BP Pulse Ox 98.1 F 120 H 22 92/54 L 100 09/16/16 14:16 09/16/16 14:16 09/16/16 14:16 09/16/16 14:16 09/16/16 14:16 Intake and Output: 09/16/16 09/16/16 06:59 18:59 Intake Total 337 Output Total 1 Balance 336 - Medications Medications: Current Medications Acetaminophen (Tylenol 325mg Tab) 650 mg PO Q4 PRN PRN Reason: Fever >100.4 F Last Admin: 08/28/16 15:23 Dose: 650 mg Acetaminophen (Tylenol 325mg Tab) 650 mg PO Q4 PRN PRN Reason: Pain, moderate (4-7) Last Admin: 09/03/16 03:33 Dose: 650 mg Albuterol Sulfate (Albuterol 0.083% Inhal Barbie (2.5 Mg/3 Ml) Ud) 2.5 mg INH RQ4 PRN PRN Reason: Shortness of Breath Albuterol/Ipratropium (Duoneb 3 Mg/0.5 Mg (3 Ml) Ud) 3 ml INH RQID [facility] Last Admin: 09/16/16 11:49 Dose: 3 ml Apixaban (Eliquis) 5 mg PO BID [facility] PRN Reason: Protocol Last Admin: 09/16/16 14:17 Dose: Not Given Aspirin (Ecotrin) 81 mg PO DAILY [facility] Last Admin: 09/16/16 08:58 Dose: 81 mg Atorvastatin Calcium (Lipitor) 40 mg PO DAILY [facility] Last Admin: 09/15/16 09:03 Dose: 40 mg Benzonatate (Tessalon Perles) 200 mg PO TID PRN PRN Reason: Cough Last Admin: 09/15/16 09:06 Dose: 200 mg Cinacalcet (Sensipar) 30 mg PO DAILY [facility] Last Admin: 09/15/16 09:05 Dose: 30 mg Epoetin Tha (Procrit) 20,000 unit IV MWF [facility] Last Admin: 09/13/16 10:07 Dose: 20,000 unit Fluconazole (Diflucan) 100 mg PO DAILY [facility] Last Admin: 09/16/16 08:59 Dose: 100 mg Guaifenesin/Codeine Phosphate (Robitussin W/Codeine) 10 ml PO Q6 PRN PRN Reason: Cough Last Admin: 09/15/16 03:07 Dose: 10 ml Hydrocortisone (Anusol-Hc) 1 applic [place] BID [facility] Last Admin: 09/15/16 17:16 Dose: 1 applic Meropenem 500 mg/ Sodium (Chloride) 100 mls @ 100 mls/hr IVPB DAILY [facility] Last Admin: 09/15/16 09:08 Dose: 100 mls/hr Amikacin Sulfate 250 mg/ (Sodium Chloride) 101 mls @ 100.609 mls/hr IVPB MWF [facility] Last Admin: 09/13/16 08:41 Dose: 100.609 mls/hr Piperacillin Sod/Tazobactam (Sod 2.25 gm/ Sodium Chloride) 100 mls @ 100 mls/ hr IVPB Q12 [facility] Last Admin: 09/16/16 12:18 Dose: Not Given Linezolid (Zyvox 600mg/300ml D5w) 600 mg in 300 mls @ 300 mls/hr IVPB Q12 [facility] Last Admin: 09/16/16 14:18 Dose: Not Given Insulin Detemir (Levemir) 30 units SC HS [facility] Last Admin: 09/15/16 22:23 Dose: 30 units Insulin Human Lispro (Humalog) 8 units SC AC [facility] Last Admin: 09/16/16 12:31 Dose: 8 units Lidocaine (Lidoderm) 1 ea TD DAILY [facility] Last Admin: 09/16/16 09:04 Dose: 1 ea Medroxyprogesterone Acetate (Provera) 10 mg PO DAILY [facility] Stop: 09/17/16 09:01 Last Admin: 09/15/16 09:02 Dose: 10 mg Nystatin (Mycostatin Oint) 1 applic TOP TID [facility] Last Admin: 09/16/16 14:18 Dose: Not Given Ondansetron HCl (Zofran Inj) 4 mg IVP Q6 PRN PRN Reason: Nausea/Vomiting Last Admin: 09/02/16 12:11 Dose: 4 mg Pantoprazole Sodium (Protonix Ec Tab) 40 mg PO DAILY [facility] Last Admin: 09/16/16 09:00 Dose: 40 mg Sevelamer HCl (Renagel) 1,600 mg PO TID [facility] Last Admin: 09/16/16 12:31 Dose: 1,600 mg Topiramate (Topamax) 50 mg PO BID [facility] Last Admin: 09/16/16 08:58 Dose: 50 mg Vitamin B Complex/Vit C/Folic Acid (Nephro-Ajay) 1 tab PO DAILY [facility] Last Admin: 09/16/16 08:59 Dose: 1 tab - Labs Labs: 09/15/16 06:40 09/15/16 06:40 PT 16.5 SECONDS (9.6-11.2) H 08/28/16 16:11 INR 1.59 (0.92-1.08) H 08/28/16 16:11 APTT 38.7 SECONDS (23.3-32.5) H 08/28/16 16:11 - Constitutional Appears: Other (Patient is tired - after stressful morning/early afternoon.) - Head Exam Head Exam: NORMAL INSPECTION - Eye Exam Eye Exam: Normal appearance - ENT Exam ENT Exam: Mucous Membranes Moist - Neck Exam Neck Exam: Normal Inspection Additional comments: Right subclavian Permacath is intact. - Respiratory Exam Respiratory Exam: Clear to Ausculation Bilateral - Cardiovascular Exam Cardiovascular Exam: REGULAR RHYTHM - GI/Abdominal Exam GI & Abdominal Exam: Soft, Normal Bowel Sounds - Back Exam Additional comments: As previously described, right lower calf/anterior tibial area is shiny, hot, sl erythematous, and exquisitely tender to even light pressure. The right toes are dry, blackened, with decreased sensation. The foot is warm , but pulseless, suggesting underlying inflammation. Right heel is dressed. R BK residual limb is warm, intact. R groin PICC line is intact with no hematoma or other adverse signs. R upper arm site of previous PICC line is OK. - Neurological Exam Neurological Exam: Alert, Awake, CN II-XII Intact, Oriented x3 - Psychiatric Exam Psychiatric exam: Anxious - Skin Additional comments: Areas beneath breasts and the decubiti (right buttock and intergluteal excoriation) are dressed. Assessment and Plan (1) Osteomyelitis of ankle or foot Assessment & Plan: SEE SUBJECTIVE Status: Acute (2) ESRD (end stage renal disease) on dialysis Assessment & Plan: SEE SUBJECTIVE Status: Chronic (3) DM type 2 (diabetes mellitus, type 2) Assessment & Plan: SEE SUBJECTIVE Status: Chronic (4) Coagulopathy Assessment & Plan: SEE SUBJECTIVE Status: Chronic (5) Peripheral arterial occlusive disease Assessment & Plan: SEE SUBJECTIVE Status: Chronic (6) SIRS (systemic inflammatory response syndrome) Status: Resolved (7) Pneumonia Status: Resolved (8) Decubitus ulcer of buttock, stage 2 Assessment & Plan: Continue current wound care. Status: Acute
[2016-09-16] MEDS: Hydrocortisone 2.5% (Rectal) CREAM PR SCH ×2 (16:27→16:32)
[2016-09-16 16:53] LABS: BASO # 0.1 K/uL (0.0-0.2); BASO % 0.6 % (0.0-2.0); EOS # 0.3 K/uL (0.0-0.7); EOS % 2.3 % (0.0-4.0); LYMPH # 1.1 K/uL (1.0-4.3); LYMPH % 9.1 % (20.0-40.0); MEAN CELL VOLUME 91.2 fl (81.0-99.0); MEAN CORPUSCULAR HEMOGLOBIN 28.9 pg (27.0-31.0); MEAN CORPUSCULAR HGB CONC 31.7 g/dL (33.0-37.0); MEAN PLATELET VOLUME 8.6 fl (7.2-11.7); MONO # 0.8 K/uL (0.0-0.8); NEUT # 9.6 K/uL (1.8-7.0); PLATELET COUNT 237 K/uL (130-400); RED CELL DISTRIBUTION WIDTH 18.9 % (11.5-14.5); WHITE BLOOD COUNT 11.9 K/uL (4.8-10.8)
[2016-09-16 17:03] LABS: BLOOD UREA NITROGEN 51 mg/dl (7-17); CARBON DIOXIDE 25 mmol/L (22-30); CHLORIDE 101 mmol/L (98-107); GFR AFRICAN-AMERICAN 6; GLUCOSE,RANDOM 104 mg/dL (65-105); POTASSIUM 4.3 MMOL/L (3.6-5.0); SODIUM 138 mmol/l (132-148)
[2016-09-16] MEDS: Epoetin Alfa 20000 UNIT/ML Inj IV SCH (17:58)
[2016-09-16 18:08] LABS: EOSINOPHIL 5 % (0-7); NEUTROPHIL 79 % (42-75); TOTAL CELLS COUNTED 100
[2016-09-16 18:10] LABS: LARGE PLATELETS PRESENT
[2016-09-16] MEDS: Meropenem 500 MG in Sodium Chloride 0.9% 100 ML IVPB SCH (20:48)
[2016-09-16] MEDS: Insulin Detemir 100 Units/ml Inj SC SCH (21:33)
--- NOTE | 2016-09-16 23:40 | CP.PCM.PN ---
Subjective - Date & Time of Evaluation Date of Evaluation: 09/16/16 Time of Evaluation: 19:05 - Subjective Subjective: She had a new femoral line as she lost her original line. Vascular surgery and Podiatry are discussing the necessity of right BKA due to Osteomyelitis versus Cellulitis of the Right Lower Extremity peripherally. Patient is reporting less pain in her right foot on moving it passively and said the pain is much less than before. She is receiving IV Antibiotics that are treating her sepsis and Cellulitis and possible Osteomyelitis. She is on Topamax 50 mg Q 12 Hrs and she has no Syncopal spells or near Syncopal spells. Objective - Vital Signs/Intake and Output Vital Signs (last 24 hours): Temp Pulse Resp BP Pulse Ox 98.8 F 119 H 18 127/56 L 100 09/16/16 16:00 09/16/16 22:00 09/16/16 22:00 09/16/16 22:00 09/16/16 22:00 Intake and Output: 09/16/16 09/17/16 18:59 06:59 Intake Total 697 Output Total 1 Balance 696 - Medications Medications: Current Medications Acetaminophen (Tylenol 325mg Tab) 650 mg PO Q4 PRN PRN Reason: Fever >100.4 F Last Admin: 09/16/16 17:51 Dose: 650 mg Acetaminophen (Tylenol 325mg Tab) 650 mg PO Q4 PRN PRN Reason: Pain, moderate (4-7) Last Admin: 09/16/16 22:34 Dose: 650 mg Albuterol Sulfate (Albuterol 0.083% Inhal Barbie (2.5 Mg/3 Ml) Ud) 2.5 mg INH RQ4 PRN PRN Reason: Shortness of Breath Albuterol/Ipratropium (Duoneb 3 Mg/0.5 Mg (3 Ml) Ud) 3 ml INH RQID [facility] Last Admin: 09/16/16 20:10 Dose: 3 ml Apixaban (Eliquis) 5 mg PO BID [facility] PRN Reason: Protocol Last Admin: 09/16/16 19:39 Dose: 5 mg Aspirin (Ecotrin) 81 mg PO DAILY [facility] Last Admin: 09/16/16 08:58 Dose: 81 mg Atorvastatin Calcium (Lipitor) 40 mg PO DAILY [facility] Last Admin: 09/16/16 19:18 Dose: 40 mg Benzonatate (Tessalon Perles) 200 mg PO TID PRN PRN Reason: Cough Last Admin: 09/15/16 09:06 Dose: 200 mg Cinacalcet (Sensipar) 30 mg PO DAILY [facility] Last Admin: 09/16/16 19:19 Dose: 30 mg Epoetin Tha (Procrit) 20,000 unit IV MWF [facility] Last Admin: 09/16/16 17:58 Dose: 20,000 unit Fluconazole (Diflucan) 100 mg PO DAILY [facility] Last Admin: 09/16/16 08:59 Dose: 100 mg Guaifenesin/Codeine Phosphate (Robitussin W/Codeine) 10 ml PO Q6 PRN PRN Reason: Cough Last Admin: 09/15/16 03:07 Dose: 10 ml Hydrocortisone (Anusol-Hc) 1 applic [place] BID [facility] Last Admin: 09/16/16 16:32 Dose: Not Given Meropenem 500 mg/ Sodium (Chloride) 100 mls @ 100 mls/hr IVPB DAILY [facility] Last Admin: 09/16/16 20:48 Dose: 100 mls/hr Amikacin Sulfate 250 mg/ (Sodium Chloride) 101 mls @ 100.609 mls/hr IVPB MWF [facility] Last Admin: 09/16/16 20:47 Dose: 100.609 mls/hr Piperacillin Sod/Tazobactam (Sod 2.25 gm/ Sodium Chloride) 100 mls @ 100 mls/ hr IVPB Q12 [facility] Last Admin: 09/16/16 21:31 Dose: 100 mls/hr Linezolid (Zyvox 600mg/300ml D5w) 600 mg in 300 mls @ 300 mls/hr IVPB Q12 [facility] Last Admin: 09/16/16 21:31 Dose: 300 mls/hr Insulin Detemir (Levemir) 30 units SC HS [facility] Last Admin: 09/16/16 21:33 Dose: 30 units Insulin Human Lispro (Humalog) 8 units SC AC [facility] Last Admin: 09/16/16 19:10 Dose: Not Given Lidocaine (Lidoderm) 1 ea TD DAILY [facility] Last Admin: 09/16/16 09:04 Dose: 1 ea Medroxyprogesterone Acetate (Provera) 10 mg PO DAILY [facility] Stop: 09/17/16 09:01 Last Admin: 09/16/16 19:20 Dose: 10 mg Nystatin (Mycostatin Oint) 1 applic TOP TID [facility] Last Admin: 09/16/16 18:38 Dose: Not Given Ondansetron HCl (Zofran Inj) 4 mg IVP Q6 PRN PRN Reason: Nausea/Vomiting Last Admin: 09/02/16 12:11 Dose: 4 mg Pantoprazole Sodium (Protonix Ec Tab) 40 mg PO DAILY [facility] Last Admin: 09/16/16 09:00 Dose: 40 mg Sevelamer HCl (Renagel) 1,600 mg PO TID [facility] Last Admin: 09/16/16 17:52 Dose: 1,600 mg Topiramate (Topamax) 50 mg PO BID [facility] Last Admin: 09/16/16 19:25 Dose: 50 mg Vitamin B Complex/Vit C/Folic Acid (Nephro-Ajay) 1 tab PO DAILY [facility] Last Admin: 09/16/16 08:59 Dose: 1 tab - Labs Labs: 09/16/16 15:19 09/16/16 16:50 PT 16.5 SECONDS (9.6-11.2) H 08/28/16 16:11 INR 1.59 (0.92-1.08) H 08/28/16 16:11 APTT 38.7 SECONDS (23.3-32.5) H 08/28/16 16:11 Assessment and Plan (1) Diabetes Status: Chronic (2) ESRD (end stage renal disease) Status: Chronic (3) Cellulitis of leg Status: Acute (4) Hyperlipidemia Status: Acute (5) Back pain Status: Acute (6) Bacteremia due to Gram-negative bacteria Status: Acute (7) Diabetes mellitus type 2 with peripheral artery disease Status: Acute (8) PVD (peripheral vascular disease) Status: Acute
[2016-09-17] MEDS: guaiFENesin-Codeine 100-10mg/5ml Syrup (5 ml) UD PO PRN ×2 (00:54→19:40)
[2016-09-17] MEDS: Insulin Lispro (humaLOG) 100 Units/ml Inj SC SCH ×3 (06:57→16:35)
[2016-09-17] MEDS: Albuterol-Ipratrop 3 mg / 0.5 (3 ml) UD INH SCH ×4 (08:01→19:50)
[2016-09-17] MEDS: Hydrocortisone 2.5% (Rectal) CREAM PR SCH ×2 (08:26→16:35)
[2016-09-17] MEDS: Lidocaine 5% Patch TD SCH (08:27)
[2016-09-17] MEDS: Meropenem 500 MG in Sodium Chloride 0.9% 100 ML IVPB SCH (08:28)
[2016-09-17] MEDS: Pantoprazole 40 mg EC Tab PO SCH (08:34)
[2016-09-17] MEDS: Nystatin Ointment TOP SCH ×3 (08:34→16:35)
[2016-09-17] MEDS: Multivitamin Vitamin B Complex (Nephro-Vite) Tab PO SCH (08:34)
[2016-09-17] MEDS: Linezolid 600 mg in D5W 300 ml 600 MG/300 ML BAG IVPB SCH ×2 (08:36→22:00)
--- NOTE | 2016-09-17 08:40 | CP.PCM.PN ---
Subjective - Date & Time of Evaluation Date of Evaluation: 09/17/16 Time of Evaluation: 08:00 - Subjective Subjective: 46 year old female seen at bedside in ICU regarding heel eschar, and resolving leg cellulits. Pt seen resting comfortably in bed at time of visit. Patient states that she has had no major overnight events. She denies recent f/n/v/c/sob /cp at this time. Patient is reporting less pain in her right foot and ankle on moving it passively, and has notd warmth to the are has decreased. PT reports Primary Medical Doctor and Vascular Surgery have discuced below knee amputation recommendation with her, and are advising her to the benefits of the procudure. Objective - Vital Signs/Intake and Output Vital Signs (last 24 hours): Temp Pulse Resp BP Pulse Ox 98.5 F 117 H 12 155/88 H 100 09/17/16 07:33 09/17/16 07:33 09/17/16 07:33 09/17/16 07:33 09/17/16 07:33 - Medications Medications: Current Medications Acetaminophen (Tylenol 325mg Tab) 650 mg PO Q4 PRN PRN Reason: Fever >100.4 F Last Admin: 09/16/16 17:51 Dose: 650 mg Acetaminophen (Tylenol 325mg Tab) 650 mg PO Q4 PRN PRN Reason: Pain, moderate (4-7) Last Admin: 09/16/16 22:34 Dose: 650 mg Albuterol Sulfate (Albuterol 0.083% Inhal Barbie (2.5 Mg/3 Ml) Ud) 2.5 mg INH RQ4 PRN PRN Reason: Shortness of Breath Albuterol/Ipratropium (Duoneb 3 Mg/0.5 Mg (3 Ml) Ud) 3 ml INH RQID [facility] Last Admin: 09/17/16 08:01 Dose: 3 ml Apixaban (Eliquis) 5 mg PO BID [facility] PRN Reason: Protocol Last Admin: 09/17/16 08:27 Dose: 5 mg Aspirin (Ecotrin) 81 mg PO DAILY [facility] Last Admin: 09/17/16 08:27 Dose: 81 mg Atorvastatin Calcium (Lipitor) 40 mg PO DAILY [facility] Last Admin: 09/17/16 08:28 Dose: 40 mg Benzonatate (Tessalon Perles) 200 mg PO TID PRN PRN Reason: Cough Last Admin: 09/15/16 09:06 Dose: 200 mg Cinacalcet (Sensipar) 30 mg PO DAILY [facility] Last Admin: 09/17/16 08:35 Dose: 30 mg Epoetin Tha (Procrit) 20,000 unit IV MWF [facility] Last Admin: 09/16/16 17:58 Dose: 20,000 unit Fluconazole (Diflucan) 100 mg PO DAILY [facility] Last Admin: 09/17/16 08:27 Dose: 100 mg Guaifenesin/Codeine Phosphate (Robitussin W/Codeine) 10 ml PO Q6 PRN PRN Reason: Cough Last Admin: 09/17/16 00:54 Dose: 10 ml Hydrocortisone (Anusol-Hc) 1 applic [place] BID [facility] Last Admin: 09/17/16 08:26 Dose: 1 applic Meropenem 500 mg/ Sodium (Chloride) 100 mls @ 100 mls/hr IVPB DAILY [facility] Last Admin: 09/17/16 08:28 Dose: 100 mls/hr Amikacin Sulfate 250 mg/ (Sodium Chloride) 101 mls @ 100.609 mls/hr IVPB MWF [facility] Last Admin: 09/16/16 20:47 Dose: 100.609 mls/hr Piperacillin Sod/Tazobactam (Sod 2.25 gm/ Sodium Chloride) 100 mls @ 100 mls/ hr IVPB Q12 [facility] Last Admin: 09/17/16 08:36 Dose: 100 mls/hr Linezolid (Zyvox 600mg/300ml D5w) 600 mg in 300 mls @ 300 mls/hr IVPB Q12 [facility] Last Admin: 09/17/16 08:36 Dose: 300 mls/hr Insulin Detemir (Levemir) 30 units SC HS [facility] Last Admin: 09/16/16 21:33 Dose: 30 units Insulin Human Lispro (Humalog) 8 units SC AC [facility] Last Admin: 09/17/16 06:57 Dose: 8 units Lidocaine (Lidoderm) 1 ea TD DAILY [facility] Last Admin: 09/17/16 08:27 Dose: 1 ea Medroxyprogesterone Acetate (Provera) 10 mg PO DAILY [facility] Stop: 09/17/16 09:01 Last Admin: 09/17/16 08:34 Dose: 10 mg Nystatin (Mycostatin Oint) 1 applic TOP TID [facility] Last Admin: 09/17/16 08:34 Dose: 1 applic Ondansetron HCl (Zofran Inj) 4 mg IVP Q6 PRN PRN Reason: Nausea/Vomiting Last Admin: 09/02/16 12:11 Dose: 4 mg Pantoprazole Sodium (Protonix Ec Tab) 40 mg PO DAILY [facility] Last Admin: 09/17/16 08:34 Dose: 40 mg Sevelamer HCl (Renagel) 1,600 mg PO TID [facility] Last Admin: 09/17/16 08:34 Dose: 1,600 mg Topiramate (Topamax) 50 mg PO BID [facility] Last Admin: 09/17/16 08:35 Dose: 50 mg Vitamin B Complex/Vit C/Folic Acid (Nephro-Ajay) 1 tab PO DAILY [facility] Last Admin: 09/17/16 08:34 Dose: 1 tab - Labs Labs: 09/16/16 15:19 09/16/16 16:50 PT 16.5 SECONDS (9.6-11.2) H 08/28/16 16:11 INR 1.59 (0.92-1.08) H 08/28/16 16:11 APTT 38.7 SECONDS (23.3-32.5) H 08/28/16 16:11 - Constitutional Appears: Non-toxic, No Acute Distress, Chronically Ill - Extremities Exam Additional comments: Right lower extremity focused exam: VASC- DP and PT pulses non-palpable, capillary refill < 5 sec to digits x 5, minor pitting edema noted to anterior aspect of leg and dorsum of foot, signs of decreased edema with near full return of relaxed skin tension lines. Minor leg callor present, absent erythema. NEURO-Gross pedal sensation is diminished DERM- Superficial dry eschar noted to plantar aspect of heel, with noted sanguinous crust along periphery, with noted increased serous exudate crust, noted minor purulence. Absent drainage on compression. No increased warmth noted , no local or ascending erythema, no acute signs infection. Eschar itself in softening along most posterior margin, absent fluctuance. ORTHO- Mild tenderness noted to distal posterior and lateral legs, severe varus deformity with dislocation of ankle noted. - Neurological Exam Neurological Exam: Alert, Awake, Oriented x3 - Psychiatric Exam Psychiatric exam: Normal Affect, Normal Mood Assessment and Plan - Assessment and Plan (Free Text) Assessment: 46 yo female patient w/ pmhx of HTN, ESRD (on dialysis), coagulopathy, DM, charcot right foot PVD w/ stable dry eschar of right heel Plan: Patient evaluated and treated. Discussed in detail with attending Dr. Resendez Chart, labs, vitals reviewed;afebrile, WBC 11.9 (09/16/16) trending down. -Vascular surgery and Podiatry attending, Heidi Hopkins, are discussing the necessity of right leg BKA due to Osteomyelitis versus Cellulitis Pt is status post Left femoral single lumen picc placement Dressing change with wet to dry sterile gauze, and DSD. -Distal leg pain will continue to be monitored. With exudate expression from eschar circumference increased serous flow noted to foot, indicating potential to heal. Potential secondary imagine to evaluate progression of leg soft tissue reduction. multipodus boot to be worn at all times while in bed continue IV abx per ID podiatry will continue to follow patient while in house.
--- NOTE | 2016-09-17 12:16 | CP.PCM.PN ---
Subjective - Date & Time of Evaluation Date of Evaluation: 09/17/16 Time of Evaluation: 12:00 - Subjective Subjective: Patient was seen by Dr. Richard Resendez, the service agent who has cared for her for years and in whom she has confidence. He just advised her that she does not need surgery at this time and her understanding is that "so long as the antibiotics are working, surgery is not needed.." He also advised her that with the boot/brace on her right foot she can walk whereas after BK amputation she would not be able to do this. So, as of this moment, she is refusing surgery. This is contrary to the opinion of the vascular surgeon, Dr. Shamika Doran, and her entire medical team (Mark Murray J. Cam, Richard Weathers, and myself. We all believe that there is osteomyelitis of the right heel, with secondary myositis/tendonitis of the muscles of the right calf. The evidence is a positive culture of the right heel and subsequent positive cultures of the blood due to E. Coli. There is MRI evidence of myositis. There is CT angiogram evidence of markedly impaired circulation to the right foot/ankle area. There is increased alkaline phosphatase indicative of bone involvement. A subsequent culture of the right heel has grown Eneida. The danger in delay is that the antibiotics may fail as resistance develops and/ or that the patient may develop a serious reaction to one or more antibiotics. Already she has required multiple transfusions to overcome the marrow suppressive effects of antibiotic therapy. At this time, we will continue the 5 IV antibiotics the patient is currently receiving. We will try to mobilize her, getting her OOB and having her use the boot/brace on her right leg to see just how much mobility we can bring about. I have reached out to Dai Malloy, our Software Engineer Sales, to work with Dr. Claire Good, Pharmacy Retail Support Specialist, to arrange for a meeting of the various physicians to discuss the issues. Otherwise, there have been no changes. The right lower leg is very warm and very painful when touched. Objective - Vital Signs/Intake and Output Vital Signs (last 24 hours): Temp Pulse Resp BP Pulse Ox 98.5 F 119 H 12 128/54 L 100 09/17/16 07:33 09/17/16 10:00 09/17/16 10:00 09/17/16 10:00 09/17/16 10:00 - Medications Medications: Current Medications Acetaminophen (Tylenol 325mg Tab) 650 mg PO Q4 PRN PRN Reason: Fever >100.4 F Last Admin: 09/16/16 17:51 Dose: 650 mg Acetaminophen (Tylenol 325mg Tab) 650 mg PO Q4 PRN PRN Reason: Pain, moderate (4-7) Last Admin: 09/16/16 22:34 Dose: 650 mg Albuterol Sulfate (Albuterol 0.083% Inhal Barbie (2.5 Mg/3 Ml) Ud) 2.5 mg INH RQ4 PRN PRN Reason: Shortness of Breath Albuterol/Ipratropium (Duoneb 3 Mg/0.5 Mg (3 Ml) Ud) 3 ml INH RQID [facility] Last Admin: 09/17/16 11:41 Dose: 3 ml Apixaban (Eliquis) 5 mg PO BID [facility] PRN Reason: Protocol Last Admin: 09/17/16 08:27 Dose: 5 mg Aspirin (Ecotrin) 81 mg PO DAILY [facility] Last Admin: 09/17/16 08:27 Dose: 81 mg Atorvastatin Calcium (Lipitor) 40 mg PO DAILY [facility] Last Admin: 09/17/16 08:28 Dose: 40 mg Benzonatate (Tessalon Perles) 200 mg PO TID PRN PRN Reason: Cough Last Admin: 09/15/16 09:06 Dose: 200 mg Cinacalcet (Sensipar) 30 mg PO DAILY [facility] Last Admin: 09/17/16 08:35 Dose: 30 mg Epoetin Tha (Procrit) 20,000 unit IV MWF [facility] Last Admin: 09/16/16 17:58 Dose: 20,000 unit Fluconazole (Diflucan) 100 mg PO DAILY [facility] Last Admin: 09/17/16 08:27 Dose: 100 mg Guaifenesin/Codeine Phosphate (Robitussin W/Codeine) 10 ml PO Q6 PRN PRN Reason: Cough Last Admin: 09/17/16 00:54 Dose: 10 ml Hydrocortisone (Anusol-Hc) 1 applic [place] BID [facility] Last Admin: 09/17/16 08:26 Dose: 1 applic Meropenem 500 mg/ Sodium (Chloride) 100 mls @ 100 mls/hr IVPB DAILY [facility] Last Admin: 09/17/16 08:28 Dose: 100 mls/hr Amikacin Sulfate 250 mg/ (Sodium Chloride) 101 mls @ 100.609 mls/hr IVPB MWF [facility] Last Admin: 09/16/16 20:47 Dose: 100.609 mls/hr Piperacillin Sod/Tazobactam (Sod 2.25 gm/ Sodium Chloride) 100 mls @ 100 mls/ hr IVPB Q12 [facility] Last Admin: 09/17/16 08:36 Dose: 100 mls/hr Linezolid (Zyvox 600mg/300ml D5w) 600 mg in 300 mls @ 300 mls/hr IVPB Q12 [facility] Last Admin: 09/17/16 08:36 Dose: 300 mls/hr Insulin Detemir (Levemir) 30 units SC HS [facility] Last Admin: 09/16/16 21:33 Dose: 30 units Insulin Human Lispro (Humalog) 8 units SC AC [facility] Last Admin: 09/17/16 11:42 Dose: 8 units Lidocaine (Lidoderm) 1 ea TD DAILY [facility] Last Admin: 09/17/16 08:27 Dose: 1 ea Nystatin (Mycostatin Oint) 1 applic TOP TID [facility] Last Admin: 09/17/16 08:34 Dose: 1 applic Ondansetron HCl (Zofran Inj) 4 mg IVP Q6 PRN PRN Reason: Nausea/Vomiting Last Admin: 09/02/16 12:11 Dose: 4 mg Pantoprazole Sodium (Protonix Ec Tab) 40 mg PO DAILY [facility] Last Admin: 09/17/16 08:34 Dose: 40 mg Sevelamer HCl (Renagel) 1,600 mg PO TID [facility] Last Admin: 09/17/16 08:34 Dose: 1,600 mg Topiramate (Topamax) 50 mg PO BID [facility] Last Admin: 09/17/16 08:35 Dose: 50 mg Vitamin B Complex/Vit C/Folic Acid (Nephro-Ajay) 1 tab PO DAILY [facility] Last Admin: 09/17/16 08:34 Dose: 1 tab - Labs Labs: 09/16/16 15:19 09/16/16 16:50 PT 16.5 SECONDS (9.6-11.2) H 08/28/16 16:11 INR 1.59 (0.92-1.08) H 08/28/16 16:11 APTT 38.7 SECONDS (23.3-32.5) H 08/28/16 16:11 - Constitutional Appears: Other (Very upset, just met with Dr. Resendez re possible surgery ) - Head Exam Head Exam: NORMAL INSPECTION - Eye Exam Eye Exam: Normal appearance - ENT Exam ENT Exam: Mucous Membranes Moist - Neck Exam Neck Exam: Normal Inspection Additional comments: R subclavian catheter intact. - Respiratory Exam Respiratory Exam: Clear to Ausculation Bilateral - Cardiovascular Exam Cardiovascular Exam: REGULAR RHYTHM - GI/Abdominal Exam GI & Abdominal Exam: Soft, Normal Bowel Sounds - Extremities Exam Additional comments: Unchanged - L hand remains puffy but warm and without lesions. Weak pulse. Right lower leg is warm, shiny, painful to touch, with Charcot joint and right heel dressing intact. L femoral PICC line intact - Back Exam Back Exam: NORMAL INSPECTION - Neurological Exam Neurological Exam: Alert, Awake, CN II-XII Intact, Oriented x3 - Psychiatric Exam Psychiatric exam: Depressed Additional comments: Upset - Skin Additional comments: Buttock, intergluteal decubiti and lesions beneath breasts dressed. Assessment and Plan (1) Osteomyelitis of ankle or foot Assessment & Plan: SEE SUBJECTIVE Status: Acute (2) ESRD (end stage renal disease) on dialysis Status: Chronic (3) DM type 2 (diabetes mellitus, type 2) Status: Chronic (4) Coagulopathy Status: Chronic (5) Peripheral arterial occlusive disease Status: Chronic (6) SIRS (systemic inflammatory response syndrome) Status: Resolved (7) Pneumonia Status: Resolved (8) Decubitus ulcer of buttock, stage 2 Status: Acute
--- NOTE | 2016-09-17 14:32 | VASCULAR ---
PROCEDURE: Date of procedure: 09/16/2016 Procedure: 1. Placement of a left femoral PICC with ultrasound and fluoroscopic guidance, CPT 66364 2. PICC tip confirmation with spot radiograph and is in the inferior vena cava Medications: 4cc 1 percent lidocaine Total Fluoro time: 11.8 seconds Radiation: 4.84 MGy EBL: 3 cc HISTORY: Poor venous access, central venous occlusion, osteomyelitis TECHNIQUE: Following informed consent and procedure time-out, the patient placed supine on the interventional table and the left groin prepped and draped in the usual sterile fashion. Ultrasound showed a thrombosed left AV graft. The femoral vein is patent. Under ultrasound guidance, the femoral vein was accessed with micropuncture technique and a guidewire is advanced under fluoroscopic guidance into the inferior vena cava. An image documenting ultrasound guidance for vascular access was permanently saved. The length of a single-lumen 5 [place] PICC was trimmed to 45 cm and advanced through a peel-away sheath. The PICC was position with tip of PICC confirm a spot radiograph the proximal inferior vena cava. The PICC was secured to the patient's skin. The PICC was flushed. A biopatch and sterile dressing was applied. IMPRESSION: Placement of a single-lumen 5 [place] PICC left femoral vein trimmed to 45 centimeter. The tip of the PICC is confirmed with spot radiograph and is in the inferior vena cava.
--- NOTE | 2016-09-17 15:15 | CP.PCM.PN ---
Subjective - Date & Time of Evaluation Date of Evaluation: 09/17/16 Time of Evaluation: 11:00 - Subjective Subjective: Follow up Nephrology Consultation Note Assessment/Plan: End stage renal disease on hemodialysis (MWF) via permacath: No acute need for dialysis today. Will plan for dialysis tomorrow. Nephrovite 1 tab/day. Anemia: PRBC as needed. [place] [address] with HD. last Hb 9.5 TSAT 73% and ferritin >1000 Hyperphosphatemia: continue with current meds as renagel 1600 TID last phos level 5.0 Secondary hyperparathyroidism: continue with sensipar 30 mg. Last PTH level 423. Hypertension control>BP better today. until yesterday was low> may add RAAS katiuska as losartan 50 mg/day if BP remains elevated Glycemic control, Dialysis consistent diet Further work up/management as per primary team. pt want to try antibiotics only for Rt foot infection. hx of allergy to heparin and coaguloapthy due to protein C/S def and currently on ASA and Eliquis. Dose meds/antibiotics for ESRD status. Avoid fleets enema/magnesium based laxatives. Thanks for allowing me to participate in care of your patient. Will follow patient with you. Please call if any Qs Dr Hernan Andino Office: [phone] Subjective: Noted events overnight. Patients feels okay. Denies chest pain, palpitation, shortness of breath, leg swelling. reports Rt foot wound. Physical Examination: General Appearance: Comfortable, in no acute respiratory distress, co- operative. obese Vitals reviewed and noted as below Lungs: Normal respiratory rate/effort. Breath sounds bilateral equal and clear Heart: Normal rate. s1s2 normal. No rub or gallop. Extremities: no edema. Rt foot dressed Neurological: Patient is alert, awake and oriented to person, place and time. No focal deficit. Strength bilateral appropriate and equal Skin: Warm and dry. Normal turgor. No rash. Palpitation: Normal elasticity for age Abdomen: Abdomen is soft. Bowel sounds +. There is no abdominal tenderness, no guarding/rigidity or organomegaly. she is obese : kidney or bladder not palpable Access: permacath Labs/imaging reviewed. Past medical history, past surgical history, family history, social history, allergy reviewed and noted as below Objective - Vital Signs/Intake and Output Vital Signs (last 24 hours): Temp Pulse Resp BP Pulse Ox 98.2 F 121 H 23 161/71 H 100 09/17/16 12:00 09/17/16 12:00 09/17/16 12:00 09/17/16 12:00 09/17/16 12:00 - Medications Medications: Current Medications Acetaminophen (Tylenol 325mg Tab) 650 mg PO Q4 PRN PRN Reason: Fever >100.4 F Last Admin: 09/16/16 17:51 Dose: 650 mg Acetaminophen (Tylenol 325mg Tab) 650 mg PO Q4 PRN PRN Reason: Pain, moderate (4-7) Last Admin: 09/16/16 22:34 Dose: 650 mg Albuterol Sulfate (Albuterol 0.083% Inhal Barbie (2.5 Mg/3 Ml) Ud) 2.5 mg INH RQ4 PRN PRN Reason: Shortness of Breath Albuterol/Ipratropium (Duoneb 3 Mg/0.5 Mg (3 Ml) Ud) 3 ml INH RQID [facility] Last Admin: 09/17/16 11:41 Dose: 3 ml Apixaban (Eliquis) 5 mg PO BID [facility] PRN Reason: Protocol Last Admin: 09/17/16 08:27 Dose: 5 mg Aspirin (Ecotrin) 81 mg PO DAILY [facility] Last Admin: 09/17/16 08:27 Dose: 81 mg Atorvastatin Calcium (Lipitor) 40 mg PO DAILY [facility] Last Admin: 09/17/16 08:28 Dose: 40 mg Benzonatate (Tessalon Perles) 200 mg PO TID PRN PRN Reason: Cough Last Admin: 09/15/16 09:06 Dose: 200 mg Cinacalcet (Sensipar) 30 mg PO DAILY [facility] Last Admin: 09/17/16 08:35 Dose: 30 mg Epoetin Tha (Procrit) 20,000 unit IV MWF [facility] Last Admin: 09/16/16 17:58 Dose: 20,000 unit Fluconazole (Diflucan) 100 mg PO DAILY [facility] Last Admin: 09/17/16 08:27 Dose: 100 mg Guaifenesin/Codeine Phosphate (Robitussin W/Codeine) 10 ml PO Q6 PRN PRN Reason: Cough Last Admin: 09/17/16 00:54 Dose: 10 ml Hydrocortisone (Anusol-Hc) 1 applic [place] BID [facility] Last Admin: 09/17/16 08:26 Dose: 1 applic Meropenem 500 mg/ Sodium (Chloride) 100 mls @ 100 mls/hr IVPB DAILY [facility] Last Admin: 09/17/16 08:28 Dose: 100 mls/hr Amikacin Sulfate 250 mg/ (Sodium Chloride) 101 mls @ 100.609 mls/hr IVPB MWF [facility] Last Admin: 09/16/16 20:47 Dose: 100.609 mls/hr Piperacillin Sod/Tazobactam (Sod 2.25 gm/ Sodium Chloride) 100 mls @ 100 mls/ hr IVPB Q12 [facility] Last Admin: 09/17/16 08:36 Dose: 100 mls/hr Linezolid (Zyvox 600mg/300ml D5w) 600 mg in 300 mls @ 300 mls/hr IVPB Q12 [facility] Last Admin: 09/17/16 08:36 Dose: 300 mls/hr Insulin Detemir (Levemir) 30 units SC HS [facility] Last Admin: 09/16/16 21:33 Dose: 30 units Insulin Human Lispro (Humalog) 8 units SC AC [facility] Last Admin: 09/17/16 11:42 Dose: 8 units Lidocaine (Lidoderm) 1 ea TD DAILY [facility] Last Admin: 09/17/16 08:27 Dose: 1 ea Nystatin (Mycostatin Oint) 1 applic TOP TID [facility] Last Admin: 09/17/16 12:27 Dose: 1 applic Ondansetron HCl (Zofran Inj) 4 mg IVP Q6 PRN PRN Reason: Nausea/Vomiting Last Admin: 09/17/16 13:10 Dose: 4 mg Pantoprazole Sodium (Protonix Ec Tab) 40 mg PO DAILY [facility] Last Admin: 09/17/16 08:34 Dose: 40 mg Sevelamer HCl (Renagel) 1,600 mg PO TID [facility] Last Admin: 09/17/16 12:26 Dose: 1,600 mg Topiramate (Topamax) 50 mg PO BID [facility] Last Admin: 09/17/16 08:35 Dose: 50 mg Vitamin B Complex/Vit C/Folic Acid (Nephro-Ajay) 1 tab PO DAILY [facility] Last Admin: 05/09/17 08:34 Dose: 1 tab - Labs Labs: 09/16/16 15:19 09/16/16 16:50 PT 16.5 SECONDS (9.6-11.2) H 08/28/16 16:11 INR 1.59 (0.92-1.08) H 08/28/16 16:11 APTT 38.7 SECONDS (23.3-32.5) H 08/28/16 16:11
--- NOTE | 2016-09-17 15:27 | PN ---
DATE: 09/17/2016 ROOM: 421 This is a 46-year-old female with recent uncontrolled type 2 insulin-requiring diabetes, now being fo llowed closely for metabolic management. Her glycemic levels are fluctuating, but much improved at this time and the latest chemistry showed a BUN of 51, sodium 138, potassium 4.3, chloride 101, CO2 25, glucose 104 and creatinine 8.5. Her glu cose levels have ranged from 104-160 mg/dL. So at this time, we will continue the modified basal and bolus insulin regimen as given with Levemir given as 30 units subQ at bedtime daily as noted. We will also continue the Humalog given as 8 units subQ t.i.d. before meals as given. We will titrate incrementally as indicated to optimize metabolic control. We will follow and advise accordingly. Irene Ambrose MD cc: [phone] TT: 09/17/2016 15:26:44 Confirmation # [id number] Dictation # [id number]
[2016-09-17] MEDS: Insulin Detemir 100 Units/ml Inj SC SCH (23:20)
--- NOTE | 2016-09-18 00:03 | CP.PCM.PN ---
Subjective - Date & Time of Evaluation Date of Evaluation: 09/17/16 Time of Evaluation: 21:45 - Subjective Subjective: Patient is refusing a Right BKA, and feels better. Podiatry is objecting a procedure of BKA, while Dr Soto and Dr Jagdish Cook are suggesting BKA. There is no Seizures or Syncope. She looks under control of Antibiotics and medical care. She is suffering less pain and tenderness in the right peripheral Lower Extremity. Objective - Vital Signs/Intake and Output Vital Signs (last 24 hours): Temp Pulse Resp BP Pulse Ox 99.5 F 125 H 16 105/85 100 09/17/16 20:00 09/17/16 20:00 09/17/16 20:00 09/17/16 20:00 09/17/16 20:00 Intake and Output: 09/17/16 09/18/16 18:59 06:59 Intake Total 200 Balance 200 - Medications Medications: Current Medications Acetaminophen (Tylenol 325mg Tab) 650 mg PO Q4 PRN PRN Reason: Fever >100.4 F Last Admin: 09/16/16 17:51 Dose: 650 mg Acetaminophen (Tylenol 325mg Tab) 650 mg PO Q4 PRN PRN Reason: Pain, moderate (4-7) Last Admin: 09/16/16 22:34 Dose: 650 mg Albuterol Sulfate (Albuterol 0.083% Inhal Barbie (2.5 Mg/3 Ml) Ud) 2.5 mg INH RQ4 PRN PRN Reason: Shortness of Breath Albuterol/Ipratropium (Duoneb 3 Mg/0.5 Mg (3 Ml) Ud) 3 ml INH RQID [facility] Last Admin: 09/17/16 19:50 Dose: 3 ml Apixaban (Eliquis) 5 mg PO BID [facility] PRN Reason: Protocol Last Admin: 09/17/16 19:40 Dose: 5 mg Aspirin (Ecotrin) 81 mg PO DAILY [facility] Last Admin: 09/17/16 08:27 Dose: 81 mg Atorvastatin Calcium (Lipitor) 40 mg PO DAILY [facility] Last Admin: 09/17/16 08:28 Dose: 40 mg Benzonatate (Tessalon Perles) 200 mg PO TID PRN PRN Reason: Cough Last Admin: 09/15/16 09:06 Dose: 200 mg Cinacalcet (Sensipar) 30 mg PO DAILY [facility] Last Admin: 09/17/16 08:35 Dose: 30 mg Epoetin Tha (Procrit) 20,000 unit IV MWF [facility] Last Admin: 09/16/16 17:58 Dose: 20,000 unit Fluconazole (Diflucan) 100 mg PO DAILY [facility] Last Admin: 09/17/16 08:27 Dose: 100 mg Guaifenesin/Codeine Phosphate (Robitussin W/Codeine) 10 ml PO Q6 PRN PRN Reason: Cough Last Admin: 09/17/16 19:40 Dose: 10 ml Hydrocortisone (Anusol-Hc) 1 applic [place] BID [facility] Last Admin: 09/17/16 16:35 Dose: 1 applic Meropenem 500 mg/ Sodium (Chloride) 100 mls @ 100 mls/hr IVPB DAILY [facility] Last Admin: 09/17/16 08:28 Dose: 100 mls/hr Amikacin Sulfate 250 mg/ (Sodium Chloride) 101 mls @ 100.609 mls/hr IVPB MWF [facility] Last Admin: 09/16/16 20:47 Dose: 100.609 mls/hr Piperacillin Sod/Tazobactam (Sod 2.25 gm/ Sodium Chloride) 100 mls @ 100 mls/ hr IVPB Q12 [facility] Last Admin: 09/17/16 08:36 Dose: 100 mls/hr Linezolid (Zyvox 600mg/300ml D5w) 600 mg in 300 mls @ 300 mls/hr IVPB Q12 [facility] Last Admin: 09/17/16 08:36 Dose: 300 mls/hr Insulin Detemir (Levemir) 30 units SC HS [facility] Last Admin: 09/17/16 23:20 Dose: 30 units Insulin Human Lispro (Humalog) 8 units SC AC [facility] Last Admin: 09/17/16 16:35 Dose: 8 units Lidocaine (Lidoderm) 1 ea TD DAILY [facility] Last Admin: 09/17/16 08:27 Dose: 1 ea Nystatin (Mycostatin Oint) 1 applic TOP TID [facility] Last Admin: 09/17/16 16:35 Dose: 1 applic Ondansetron HCl (Zofran Inj) 4 mg IVP Q6 PRN PRN Reason: Nausea/Vomiting Last Admin: 09/17/16 13:10 Dose: 4 mg Pantoprazole Sodium (Protonix Ec Tab) 40 mg PO DAILY [facility] Last Admin: 09/17/16 08:34 Dose: 40 mg Sevelamer HCl (Renagel) 1,600 mg PO TID [facility] Last Admin: 09/17/16 16:36 Dose: 1,600 mg Topiramate (Topamax) 50 mg PO BID [facility] Last Admin: 09/17/16 16:36 Dose: 50 mg Tramadol HCl (Ultram) 50 mg PO ONCE ONE Stop: 09/17/16 23:39 Vitamin B Complex/Vit C/Folic Acid (Nephro-Ajay) 1 tab PO DAILY [facility] Last Admin: 09/17/16 08:34 Dose: 1 tab - Labs Labs: 09/16/16 15:19 09/16/16 16:50 PT 16.5 SECONDS (9.6-11.2) H 08/28/16 16:11 INR 1.59 (0.92-1.08) H 08/28/16 16:11 APTT 38.7 SECONDS (23.3-32.5) H 08/28/16 16:11 Assessment and Plan (1) Diabetes Status: Chronic (2) ESRD (end stage renal disease) Status: Chronic (3) Cellulitis of leg Status: Acute (4) Hyperlipidemia Status: Acute (5) Back pain Status: Acute (6) Bacteremia due to Gram-negative bacteria Status: Acute (7) Diabetes mellitus type 2 with peripheral artery disease Status: Acute (8) PVD (peripheral vascular disease) Status: Acute
[2016-09-18] MEDS: Albuterol-Ipratrop 3 mg / 0.5 (3 ml) UD INH SCH ×4 (08:01→20:02)
[2016-09-18] MEDS: Insulin Lispro (humaLOG) 100 Units/ml Inj SC SCH ×3 (08:14→16:36)
[2016-09-18] MEDS: Hydrocortisone 2.5% (Rectal) CREAM PR SCH ×2 (08:35→16:36)
[2016-09-18] MEDS: Lidocaine 5% Patch TD SCH (08:36)
[2016-09-18] MEDS: Meropenem 500 MG in Sodium Chloride 0.9% 100 ML IVPB SCH (08:36)
[2016-09-18] MEDS: Nystatin Ointment TOP SCH ×3 (08:37→16:38)
[2016-09-18] MEDS: Multivitamin Vitamin B Complex (Nephro-Vite) Tab PO SCH (08:38)
[2016-09-18] MEDS: Pantoprazole 40 mg EC Tab PO SCH (08:39)
[2016-09-18] MEDS: Epoetin Alfa 20000 UNIT/ML Inj IV SCH (08:39)
[2016-09-18] MEDS: Linezolid 600 mg in D5W 300 ml 600 MG/300 ML BAG IVPB SCH ×2 (08:41→21:51)
[2016-09-18] MEDS ORDERED: Multivitamin Vitamin B Complex (Nephro-Vite) Tab PO SCH (09:00)
--- NOTE | 2016-09-18 10:56 | CP.PCM.PN ---
Subjective - Date & Time of Evaluation Date of Evaluation: 09/18/16 Time of Evaluation: 10:43 - Subjective Subjective: Patient was given Ultram last night for pain in the right ankle. This area is still hot, erythematous, and tender over the distal third of the lower right leg. After looking up Ultram this morning I note that it has norepinephrine reuptake inhibitor activity - so there is the potential for increased vasospasm. I have advised the patient that we will go back to the Dilaudid 2mg po if needed for severe pain as this may be safer. Yesterday she was able with the help of the physical therapist to sit on the side of the bed. She did not put on her left BK prosthesis or the boot/brace for the right leg. We must clarify with podiatry if the patient may use the boot/brace - if the heel problem is simply a dry eschar. I have asked the patient to put on her BK prosthesis today and to have the physical therapist help her stand on it, because this is important to maintain the contour of the residual limb and the strength of the underlying bone. DM is controlled. Random glucose was 160. Pneumonia has resolved - she has no dyspnea and is on room air now. BP's are satisfactory and 3x/week hemodialysis is proceeding nicely. Clinically, the patient has osteomyelitis of the right heel and myositis of the right lower leg. After 4 weeks of intensive iv antibiotic therapy this is not resolving, podiatric notes notwithstanding. At present, the patient is stable for transfer off telemetry to a medical floor. We will continue the antibiotic therapy and hemodialysis. However, we must be very alert for signs of sepsis such as fever (or very low temperature), chills, hypotension, or even confusion (which could be falsely attributed to glycemic changes). Objective - Vital Signs/Intake and Output Vital Signs (last 24 hours): Temp Pulse Resp BP Pulse Ox 98.9 F 111 H 12 122/72 100 09/18/16 07:55 09/18/16 07:55 09/18/16 07:55 09/18/16 07:55 09/18/16 07:55 - Medications Medications: Current Medications Acetaminophen (Tylenol 325mg Tab) 650 mg PO Q4 PRN PRN Reason: Fever >100.4 F Last Admin: 09/16/16 17:51 Dose: 650 mg Acetaminophen (Tylenol 325mg Tab) 650 mg PO Q4 PRN PRN Reason: Pain, moderate (4-7) Last Admin: 09/16/16 22:34 Dose: 650 mg Albuterol Sulfate (Albuterol 0.083% Inhal Barbie (2.5 Mg/3 Ml) Ud) 2.5 mg INH RQ4 PRN PRN Reason: Shortness of Breath Albuterol/Ipratropium (Duoneb 3 Mg/0.5 Mg (3 Ml) Ud) 3 ml INH RQID [facility] Last Admin: 09/18/16 08:01 Dose: 3 ml Apixaban (Eliquis) 5 mg PO BID [facility] PRN Reason: Protocol Last Admin: 09/18/16 08:36 Dose: 5 mg Aspirin (Ecotrin) 81 mg PO DAILY [facility] Last Admin: 09/18/16 08:36 Dose: 81 mg Atorvastatin Calcium (Lipitor) 40 mg PO DAILY [facility] Last Admin: 09/18/16 08:36 Dose: 40 mg Benzonatate (Tessalon Perles) 200 mg PO TID PRN PRN Reason: Cough Last Admin: 09/15/16 09:06 Dose: 200 mg Cinacalcet (Sensipar) 30 mg PO DAILY [facility] Last Admin: 09/18/16 08:40 Dose: 30 mg Epoetin Tha (Procrit) 20,000 unit IV [facility] [place] Last Admin: 09/18/16 08:39 Dose: 20,000 unit Fluconazole (Diflucan) 100 mg PO DAILY [facility] Last Admin: 09/18/16 08:35 Dose: 100 mg Guaifenesin/Codeine Phosphate (Robitussin W/Codeine) 10 ml PO Q6 PRN PRN Reason: Cough Last Admin: 09/17/16 19:40 Dose: 10 ml Hydrocortisone (Anusol-Hc) 1 applic CO BID [facility] Last Admin: 09/18/16 08:35 Dose: 1 applic Meropenem 500 mg/ Sodium (Chloride) 100 mls @ 100 mls/hr IVPB DAILY [facility] Last Admin: 09/18/16 08:36 Dose: 100 mls/hr Amikacin Sulfate 250 mg/ (Sodium Chloride) 101 mls @ 100.609 mls/hr IVPB MWF [facility] Last Admin: 09/18/16 08:34 Dose: 100.609 mls/hr Piperacillin Sod/Tazobactam (Sod 2.25 gm/ Sodium Chloride) 100 mls @ 100 mls/ hr IVPB Q12 [facility] Last Admin: 09/18/16 08:40 Dose: 100 mls/hr Linezolid (Zyvox 600mg/300ml D5w) 600 mg in 300 mls @ 300 mls/hr IVPB Q12 [facility] Last Admin: 09/18/16 08:41 Dose: 300 mls/hr Insulin Detemir (Levemir) 30 units SC HS [facility] Last Admin: 09/17/16 23:20 Dose: 30 units Insulin Human Lispro (Humalog) 8 units SC AC [facility] Last Admin: 09/18/16 08:14 Dose: 8 units Lidocaine (Lidoderm) 1 ea TD DAILY [facility] Last Admin: 09/18/16 08:36 Dose: 1 ea Nystatin (Mycostatin Oint) 1 applic TOP TID [facility] Last Admin: 09/18/16 08:37 Dose: 1 applic Ondansetron HCl (Zofran Inj) 4 mg IVP Q6 PRN PRN Reason: Nausea/Vomiting Last Admin: 09/17/16 13:10 Dose: 4 mg Pantoprazole Sodium (Protonix Ec Tab) 40 mg PO DAILY [facility] Last Admin: 09/18/16 08:39 Dose: 40 mg Sevelamer HCl (Renagel) 1,600 mg PO TID [facility] Last Admin: 09/18/16 08:39 Dose: 1,600 mg Topiramate (Topamax) 50 mg PO BID [facility] Last Admin: 09/18/16 08:40 Dose: 50 mg Vitamin B Complex/Vit C/Folic Acid (Nephro-Ajay) 1 tab PO DAILY [facility] Last Admin: 09/18/16 08:38 Dose: 1 tab - Labs Labs: 09/16/16 15:19 09/16/16 16:50 PT 16.5 SECONDS (9.6-11.2) H 08/28/16 16:11 INR 1.59 (0.92-1.08) H 08/28/16 16:11 APTT 38.7 SECONDS (23.3-32.5) H 08/28/16 16:11 - Constitutional Appears: No Acute Distress - Head Exam Head Exam: NORMAL INSPECTION - Eye Exam Eye Exam: Normal appearance - ENT Exam ENT Exam: Mucous Membranes Moist - Neck Exam Neck Exam: Normal Inspection Additional comments: Right subclavian Permacath is intact. - Respiratory Exam Respiratory Exam: Clear to Ausculation Bilateral - Cardiovascular Exam Cardiovascular Exam: REGULAR RHYTHM, +S1, +S2 - GI/Abdominal Exam GI & Abdominal Exam: Soft, Normal Bowel Sounds - Extremities Exam Additional comments: Podiatry has changed the dressing on the heel this morning, so this was left in place. The right lower leg is hot - for the lower third - with shiny skin, tense muscles, and marked tenderness. The toes are cool, blackened, and shriveled. No DP pulse is palpable. - Back Exam Back Exam: NORMAL INSPECTION - Neurological Exam Neurological Exam: Alert, Awake, CN II-XII Intact, Oriented x3 Additional comments: Patient is unable to ambulate at this time. - Psychiatric Exam Psychiatric exam: Anxious, Normal Mood - Skin Additional comments: Wound care nurses are addressing the right buttock and the intergluteal lesions and the excoriations beneath the breasts. Assessment and Plan (1) Osteomyelitis of ankle or foot Assessment & Plan: Clinically there is osteomyelitis of the right heel -ankle and myositis of the left lower leg muscles. In a patient with diabetes and severe peripheral arterial disease, there is no reasonable expectation of cure. The question is whether the patient will be more mobile after a BK amputation or should she continue using her boot/brace ( if the latter is even possible). And, always there is the risk of SIRS. I have told the patient we will continue our present course, aim at greater mobilization with the help of PT, and review the situation in several days. I am firm in the belief that a right BK amputation will be in the patient's best interest. Status: Acute (2) ESRD (end stage renal disease) on dialysis Status: Chronic (3) DM type 2 (diabetes mellitus, type 2) Status: Chronic (4) Coagulopathy Status: Chronic (5) Peripheral arterial occlusive disease Status: Chronic (6) Pneumonia Status: Acute (7) Decubitus ulcer of buttock, stage 2 Status: Acute
--- NOTE | 2016-09-18 11:12 | CP.PCM.PN ---
Subjective - Date & Time of Evaluation Date of Evaluation: 09/18/16 Time of Evaluation: 11:09 - Subjective Subjective: Follow up Nephrology Consultation Note Assessment/Plan: End stage renal disease on hemodialysis (MWF) via permacath: Will plan for dialysis today 4 hours with 2 K bath. continue with Nephrovite 1 tab/day. Anemia: PRBC as needed. On MARTHA as Epogen 20,000 with HD. last Hb 9.5 TSAT 73% and ferritin >1000 Hyperphosphatemia: continue with current meds as renagel 1600 TID last phos level 5.0 Secondary hyperparathyroidism with Vit D Defeciency: continue with sensipar 30 mg. Last PTH level 423. Vit D <12. will supplement with ergo 50,000 weekly x 8 Hypertension control: BP mostly on low side Glycemic control, Dialysis consistent diet Further work up/management as per primary team. pt want to try antibiotics only for Rt foot infection. hx of allergy to heparin and coaguloapthy due to protein C/S def and currently on ASA and Eliquis. Dose meds/antibiotics for ESRD status. Avoid fleets enema/magnesium based laxatives. Thanks for allowing me to participate in care of your patient. Will follow patient with you. Please call if any Qs Dr Hernan Andino Office: [phone] Subjective: Noted events overnight. Patients feels okay. Denies chest pain, palpitation, shortness of breath, leg swelling. reports Rt foot wound. required dose of tramadol last night for Rt foot pain Physical Examination: General Appearance: Comfortable, in no acute respiratory distress, co- operative. obese Vitals reviewed and noted as below Lungs: Normal respiratory rate/effort. Breath sounds bilateral equal and clear Heart: Normal rate. s1s2 normal. No rub or gallop. Extremities: no edema. Rt foot dressed, left BKA Neurological: Patient is alert, awake and oriented to person, place and time. No focal deficit. Strength bilateral appropriate and equal Skin: Warm and dry. Normal turgor. No rash. Palpitation: Normal elasticity for age Abdomen: Abdomen is soft. Bowel sounds +. There is no abdominal tenderness, no guarding/rigidity or organomegaly. she is obese : kidney or bladder not palpable Access: permacath Labs/imaging reviewed. Past medical history, past surgical history, family history, social history, allergy reviewed Objective - Vital Signs/Intake and Output Vital Signs (last 24 hours): Temp Pulse Resp BP Pulse Ox 98.9 F 111 H 12 122/72 100 09/18/16 07:55 09/18/16 07:55 09/18/16 07:55 09/18/16 07:55 09/18/16 07:55 - Medications Medications: Current Medications Acetaminophen (Tylenol 325mg Tab) 650 mg PO Q4 PRN PRN Reason: Fever >100.4 F Last Admin: 09/16/16 17:51 Dose: 650 mg Acetaminophen (Tylenol 325mg Tab) 650 mg PO Q4 PRN PRN Reason: Pain, moderate (4-7) Last Admin: 09/16/16 22:34 Dose: 650 mg Albuterol Sulfate (Albuterol 0.083% Inhal Barbie (2.5 Mg/3 Ml) Ud) 2.5 mg INH RQ4 PRN PRN Reason: Shortness of Breath Albuterol/Ipratropium (Duoneb 3 Mg/0.5 Mg (3 Ml) Ud) 3 ml INH RQID [facility] Last Admin: 09/18/16 08:01 Dose: 3 ml Apixaban (Eliquis) 5 mg PO BID [facility] PRN Reason: Protocol Last Admin: 09/18/16 08:36 Dose: 5 mg Aspirin (Ecotrin) 81 mg PO DAILY [facility] Last Admin: 09/18/16 08:36 Dose: 81 mg Atorvastatin Calcium (Lipitor) 40 mg PO DAILY [facility] Last Admin: 09/18/16 08:36 Dose: 40 mg Benzonatate (Tessalon Perles) 200 mg PO TID PRN PRN Reason: Cough Last Admin: 09/15/16 09:06 Dose: 200 mg Cinacalcet (Sensipar) 30 mg PO DAILY [facility] Last Admin: 09/18/16 08:40 Dose: 30 mg Epoetin Tha (Procrit) 20,000 unit IV MWF [facility] Last Admin: 09/18/16 08:39 Dose: 20,000 unit Ergocalciferol (Drisdol 50,000 Intl Units Cap) 1 cap PO Q7D [facility] Stop: 11/06/16 11:16 Fluconazole (Diflucan) 100 mg PO DAILY [facility] Last Admin: 09/18/16 08:35 Dose: 100 mg Guaifenesin/Codeine Phosphate (Robitussin W/Codeine) 10 ml PO Q6 PRN PRN Reason: Cough Last Admin: 09/17/16 19:40 Dose: 10 ml Hydrocortisone (Anusol-Hc) 1 applic AL BID [facility] Last Admin: 09/18/16 08:35 Dose: 1 applic Meropenem 500 mg/ Sodium (Chloride) 100 mls @ 100 mls/hr IVPB DAILY [facility] Last Admin: 09/18/16 08:36 Dose: 100 mls/hr Amikacin Sulfate 250 mg/ (Sodium Chloride) 101 mls @ 100.609 mls/hr IVPB MWF [facility] Last Admin: 09/18/16 08:34 Dose: 100.609 mls/hr Piperacillin Sod/Tazobactam (Sod 2.25 gm/ Sodium Chloride) 100 mls @ 100 mls/ hr IVPB Q12 [facility] Last Admin: 09/18/16 08:40 Dose: 100 mls/hr Linezolid (Zyvox 600mg/300ml D5w) 600 mg in 300 mls @ 300 mls/hr IVPB Q12 [facility] Last Admin: 09/18/16 08:41 Dose: 300 mls/hr Insulin Detemir (Levemir) 30 units SC HS [facility] Last Admin: 09/17/16 23:20 Dose: 30 units Insulin Human Lispro (Humalog) 8 units SC AC [facility] Last Admin: 09/18/16 08:14 Dose: 8 units Lidocaine (Lidoderm) 1 ea TD DAILY [facility] Last Admin: 09/18/16 08:36 Dose: 1 ea Nystatin (Mycostatin Oint) 1 applic TOP TID [facility] Last Admin: 09/18/16 08:37 Dose: 1 applic Ondansetron HCl (Zofran Inj) 4 mg IVP Q6 PRN PRN Reason: Nausea/Vomiting Last Admin: 09/17/16 13:10 Dose: 4 mg Pantoprazole Sodium (Protonix Ec Tab) 40 mg PO DAILY [facility] Last Admin: 09/18/16 08:39 Dose: 40 mg Sevelamer HCl (Renagel) 1,600 mg PO TID [facility] Last Admin: 09/18/16 08:39 Dose: 1,600 mg Topiramate (Topamax) 50 mg PO BID [facility] Last Admin: 09/18/16 08:40 Dose: 50 mg Vitamin B Complex/Vit C/Folic Acid (Nephro-Ajay) 1 tab PO DAILY [facility] Last Admin: 09/18/16 08:38 Dose: 1 tab - Labs Labs: 09/16/16 15:19 09/16/16 16:50 PT 16.5 SECONDS (9.6-11.2) H 08/28/16 16:11 INR 1.59 (0.92-1.08) H 08/28/16 16:11 APTT 38.7 SECONDS (23.3-32.5) H 08/28/16 16:11
[2016-09-18] MEDS ORDERED: Albumin Human 25% (12.5 gm/50 ml) IV ONE (11:13)
[2016-09-18] MEDS: Ergocalciferol 50,000 Intl Units Cap PO SCH (14:34)
--- NOTE | 2016-09-18 16:48 | PN ---
DATE: 09/18/2016 ROOM: ICU room 421 This is a 46-year-old female with recent uncontrolled type 2 insulin-requiring diabetes, now being fo llowed closely for metabolic management. Her glycemic levels are fluctuating, but much improved at t his time and the glucose values have ranged from 104-160 mg/dL. Her latest chemistries include a BUN of 51, sodium 138, potassium 4.3, chloride 101, CO2 of 25, glucose 104, and creatinine 8.5. She is undergoing IV antibiotic management for gram-negative bacteremia with an underlying acute osteomyelit is and a nonhealing right heel neuropathic ulceration as noted. So, at this time, we will continue the same basal and bolus insulin regimen as given with Humalog giv en as 8 units subQ t.i.d. before meals with Levemir given as 30 units subQ at bedtime daily as given. We will obtain serial chemistries and supplement accordingly as needed. We will follow. Irene Ambrose MD cc: [id number] TT: 09/18/2016 16:46:44 Confirmation # [id number] Dictation # [id number]
[2016-09-18 17:29] LABS: HEMATOCRIT 29.7 % (34.0-47.0); MEAN CELL VOLUME 90.8 fl (81.0-99.0); MEAN CORPUSCULAR HEMOGLOBIN 28.9 pg (27.0-31.0); MEAN CORPUSCULAR HGB CONC 31.8 g/dL (33.0-37.0); RED CELL DISTRIBUTION WIDTH 19.2 % (11.5-14.5); WHITE BLOOD COUNT 9.2 K/uL (4.8-10.8)
[2016-09-18 17:41] LABS: CALCIUM 8.1 mg/dL (8.4-10.2)
[2016-09-18] MEDS: guaiFENesin-Codeine 100-10mg/5ml Syrup (5 ml) UD PO PRN (20:50)
[2016-09-18] MEDS: Insulin Detemir 100 Units/ml Inj SC SCH (21:55)
--- NOTE | 2016-09-19 00:38 | CP.PCM.PN ---
Subjective - Date & Time of Evaluation Date of Evaluation: 09/18/16 Time of Evaluation: 21:00 - Subjective Subjective: Last night she requested Pain medicine for her right foot and ankle. She is not suffering from seizures, she is receiving Po Topamax 50 mg Q 12 Hrs. Objective - Vital Signs/Intake and Output Vital Signs (last 24 hours): Temp Pulse Resp BP Pulse Ox 98.2 F 112 H 12 102/57 L 100 09/18/16 15:45 09/18/16 15:45 09/18/16 15:45 09/18/16 15:45 09/18/16 07:55 Intake and Output: 09/18/16 09/19/16 18:59 06:59 Intake Total 150 Output Total 2000 Balance -1850 - Medications Medications: Current Medications Acetaminophen (Tylenol 325mg Tab) 650 mg PO Q4 PRN PRN Reason: Fever >100.4 F Last Admin: 09/16/16 17:51 Dose: 650 mg Acetaminophen (Tylenol 325mg Tab) 650 mg PO Q4 PRN PRN Reason: Pain, moderate (4-7) Last Admin: 09/16/16 22:34 Dose: 650 mg Albuterol Sulfate (Albuterol 0.083% Inhal Barbie (2.5 Mg/3 Ml) Ud) 2.5 mg INH RQ4 PRN PRN Reason: Shortness of Breath Albuterol/Ipratropium (Duoneb 3 Mg/0.5 Mg (3 Ml) Ud) 3 ml INH RQID [facility] Last Admin: 09/18/16 20:02 Dose: 3 ml Apixaban (Eliquis) 5 mg PO BID [facility] PRN Reason: Protocol Last Admin: 09/18/16 16:36 Dose: 5 mg Aspirin (Ecotrin) 81 mg PO DAILY [facility] Last Admin: 09/18/16 08:36 Dose: 81 mg Atorvastatin Calcium (Lipitor) 40 mg PO DAILY [facility] Last Admin: 09/18/16 08:36 Dose: 40 mg Benzonatate (Tessalon Perles) 200 mg PO TID PRN PRN Reason: Cough Last Admin: 09/15/16 09:06 Dose: 200 mg Cinacalcet (Sensipar) 30 mg PO DAILY [facility] Last Admin: 09/18/16 08:40 Dose: 30 mg Epoetin Tha (Procrit) 20,000 unit IV MWF [facility] Last Admin: 09/18/16 08:39 Dose: 20,000 unit Ergocalciferol (Drisdol 50,000 Intl Units Cap) 1 cap PO Q7D [facility] Stop: 11/06/16 11:16 Last Admin: 09/18/16 14:34 Dose: 1 cap Fluconazole (Diflucan) 100 mg PO DAILY [facility] Last Admin: 09/18/16 08:35 Dose: 100 mg Guaifenesin/Codeine Phosphate (Robitussin W/Codeine) 10 ml PO Q6 PRN PRN Reason: Cough Last Admin: 09/18/16 20:50 Dose: 10 ml Hydrocortisone (Anusol-Hc) 1 applic ME BID [facility] Last Admin: 09/18/16 16:36 Dose: 1 applic Hydromorphone HCl (Dilaudid) 2 mg PO Q6 PRN PRN Reason: Pain, severe (8-10) Last Admin: 09/18/16 23:07 Dose: 2 mg Meropenem 500 mg/ Sodium (Chloride) 100 mls @ 100 mls/hr IVPB DAILY [facility] Last Admin: 09/18/16 08:36 Dose: 100 mls/hr Amikacin Sulfate 250 mg/ (Sodium Chloride) 101 mls @ 100.609 mls/hr IVPB MWF [facility] Last Admin: 09/18/16 08:34 Dose: 100.609 mls/hr Piperacillin Sod/Tazobactam (Sod 2.25 gm/ Sodium Chloride) 100 mls @ 100 mls/ hr IVPB Q12 [facility] Last Admin: 09/18/16 20:42 Dose: 100 mls/hr Linezolid (Zyvox 600mg/300ml D5w) 600 mg in 300 mls @ 300 mls/hr IVPB Q12 [facility] Last Admin: 09/18/16 21:51 Dose: 300 mls/hr Insulin Detemir (Levemir) 30 units SC HS [facility] Last Admin: 09/18/16 21:55 Dose: 30 units Insulin Human Lispro (Humalog) 8 units SC AC [facility] Last Admin: 09/18/16 16:36 Dose: 8 units Lidocaine (Lidoderm) 1 ea TD DAILY [facility] Last Admin: 09/18/16 08:36 Dose: 1 ea Nystatin (Mycostatin Oint) 1 applic TOP TID [facility] Last Admin: 09/18/16 16:38 Dose: 1 applic Ondansetron HCl (Zofran Inj) 4 mg IVP Q6 PRN PRN Reason: Nausea/Vomiting Last Admin: 09/17/16 13:10 Dose: 4 mg Pantoprazole Sodium (Protonix Ec Tab) 40 mg PO DAILY [facility] Last Admin: 09/18/16 08:39 Dose: 40 mg Sevelamer HCl (Renagel) 1,600 mg PO TID [facility] Last Admin: 09/18/16 16:38 Dose: 1,600 mg Topiramate (Topamax) 50 mg PO BID [facility] Last Admin: 09/18/16 16:38 Dose: 50 mg Vitamin B Complex/Vit C/Folic Acid (Nephro-Ajay) 1 tab PO DAILY [facility] Last Admin: 09/18/16 08:38 Dose: 1 tab - Labs Labs: 09/18/16 17:20 09/18/16 17:20 PT 16.5 SECONDS (9.6-11.2) H 08/28/16 16:11 INR 1.59 (0.92-1.08) H 08/28/16 16:11 APTT 38.7 SECONDS (23.3-32.5) H 08/28/16 16:11 Assessment and Plan (1) Diabetes Status: Chronic (2) ESRD (end stage renal disease) Status: Chronic (3) Cellulitis of leg Status: Acute (4) Hyperlipidemia Status: Acute (5) Back pain Status: Acute (6) Bacteremia due to Gram-negative bacteria Status: Acute (7) Diabetes mellitus type 2 with peripheral artery disease Status: Acute (8) PVD (peripheral vascular disease) Status: Acute
--- NOTE | 2016-09-19 06:52 | CP.PCM.PN ---
Subjective - Date & Time of Evaluation Date of Evaluation: 09/19/16 Time of Evaluation: 07:00 - Subjective Subjective: 46 year old female seen at bedside regarding heel eschar and resolving leg cellulits. Pt seen resting comfortably in bed at time of visit. Patient states that she has had no major overnight events. Patient is reports no resting right leg pain pain in her right foot and ankl, or on passive movement. She denies recent f/n/v/c/sob/cp at this time. Objective - Vital Signs/Intake and Output Vital Signs (last 24 hours): Temp Pulse Resp BP Pulse Ox 98.8 F 112 H 16 135/68 97 09/18/16 23:00 09/18/16 23:00 09/18/16 23:00 09/18/16 23:00 09/18/16 23:00 Intake and Output: 09/18/16 09/19/16 18:59 06:59 Intake Total 150 Output Total 2000 Balance -1850 - Medications Medications: Current Medications Acetaminophen (Tylenol 325mg Tab) 650 mg PO Q4 PRN PRN Reason: Fever >100.4 F Last Admin: 09/16/16 17:51 Dose: 650 mg Acetaminophen (Tylenol 325mg Tab) 650 mg PO Q4 PRN PRN Reason: Pain, moderate (4-7) Last Admin: 09/16/16 22:34 Dose: 650 mg Albuterol Sulfate (Albuterol 0.083% Inhal Barbie (2.5 Mg/3 Ml) Ud) 2.5 mg INH RQ4 PRN PRN Reason: Shortness of Breath Albuterol/Ipratropium (Duoneb 3 Mg/0.5 Mg (3 Ml) Ud) 3 ml INH RQID [facility] Last Admin: 09/18/16 20:02 Dose: 3 ml Apixaban (Eliquis) 5 mg PO BID [facility] PRN Reason: Protocol Last Admin: 09/18/16 16:36 Dose: 5 mg Aspirin (Ecotrin) 81 mg PO DAILY [facility] Last Admin: 09/18/16 08:36 Dose: 81 mg Atorvastatin Calcium (Lipitor) 40 mg PO DAILY [facility] Last Admin: 09/18/16 08:36 Dose: 40 mg Benzonatate (Tessalon Perles) 200 mg PO TID PRN PRN Reason: Cough Last Admin: 09/15/16 09:06 Dose: 200 mg Cinacalcet (Sensipar) 30 mg PO DAILY [facility] Last Admin: 09/18/16 08:40 Dose: 30 mg Epoetin Tha (Procrit) 20,000 unit IV [facility] Last Admin: 09/18/16 08:39 Dose: 20,000 unit Ergocalciferol (Drisdol 50,000 Intl Units Cap) 1 cap PO Q7D [facility] Stop: 11/06/16 11:16 Last Admin: 09/18/16 14:34 Dose: 1 cap Fluconazole (Diflucan) 100 mg PO DAILY [facility] Last Admin: 09/18/16 08:35 Dose: 100 mg Guaifenesin/Codeine Phosphate (Robitussin W/Codeine) 10 ml PO Q6 PRN PRN Reason: Cough Last Admin: 09/18/16 20:50 Dose: 10 ml Hydrocortisone (Anusol-Hc) 1 applic [place] BID [facility] Last Admin: 09/18/16 16:36 Dose: 1 applic Hydromorphone HCl (Dilaudid) 2 mg PO Q6 PRN PRN Reason: Pain, severe (8-10) Last Admin: 09/18/16 23:07 Dose: 2 mg Meropenem 500 mg/ Sodium (Chloride) 100 mls @ 100 mls/hr IVPB DAILY [facility] Last Admin: 09/18/16 08:36 Dose: 100 mls/hr Amikacin Sulfate 250 mg/ (Sodium Chloride) 101 mls @ 100.609 mls/hr IVPB MWF [facility] Last Admin: 09/18/16 08:34 Dose: 100.609 mls/hr Piperacillin Sod/Tazobactam (Sod 2.25 gm/ Sodium Chloride) 100 mls @ 100 mls/ hr IVPB Q12 [facility] Last Admin: 09/18/16 20:42 Dose: 100 mls/hr Linezolid (Zyvox 600mg/300ml D5w) 600 mg in 300 mls @ 300 mls/hr IVPB Q12 [facility] Last Admin: 09/18/16 21:51 Dose: 300 mls/hr Insulin Detemir (Levemir) 30 units SC HS [facility] Last Admin: 09/18/16 21:55 Dose: 30 units Insulin Human Lispro (Humalog) 8 units SC AC [facility] Last Admin: 09/18/16 16:36 Dose: 8 units Lidocaine (Lidoderm) 1 ea TD DAILY [facility] Last Admin: 09/18/16 08:36 Dose: 1 ea Nystatin (Mycostatin Oint) 1 applic TOP TID [facility] Last Admin: 09/18/16 16:38 Dose: 1 applic Ondansetron HCl (Zofran Inj) 4 mg IVP Q6 PRN PRN Reason: Nausea/Vomiting Last Admin: 09/17/16 13:10 Dose: 4 mg Pantoprazole Sodium (Protonix Ec Tab) 40 mg PO DAILY [facility] Last Admin: 09/18/16 08:39 Dose: 40 mg Sevelamer HCl (Renagel) 1,600 mg PO TID [facility] Last Admin: 09/18/16 16:38 Dose: 1,600 mg Topiramate (Topamax) 50 mg PO BID [facility] Last Admin: 09/18/16 16:38 Dose: 50 mg Vitamin B Complex/Vit C/Folic Acid (Nephro-Ajay) 1 tab PO DAILY [facility] Last Admin: 09/18/16 08:38 Dose: 1 tab - Labs Labs: 09/18/16 17:20 09/18/16 17:20 PT 16.5 SECONDS (9.6-11.2) H 08/28/16 16:11 INR 1.59 (0.92-1.08) H 08/28/16 16:11 APTT 38.7 SECONDS (23.3-32.5) H 08/28/16 16:11 - Constitutional Appears: Non-toxic, No Acute Distress, Chronically Ill - Respiratory Exam Respiratory Exam: NORMAL BREATHING PATTERN. absent: Chest Wall Tenderness, Decreased Breath Sounds - Extremities Exam Extremities Exam: absent: Calf Tenderness, Joint Swelling, Tenderness Additional comments: Right lower extremity focused exam: VASC- DP and PT pulses non-palpable, capillary refill < 5 sec to digits x 5, Mild edema noted to anterior aspect of leg and dorsum of foot, signs decreased, edema with near full return of relaxed skin tension lines. Minor leg callor present, absent erythema. NEURO-Gross pedal sensation is diminished DERM- Superficial dry eschar noted to plantar aspect of heel, with noted sanguinous crust along periphery, with noted increased serous exudate crust, noted minor purulence. Absent drainage on compression. No increased warmth noted , no local or ascending erythema, no acute signs infection. Eschar itself in softening along most posterior margin, absent fluctuance. ORTHO- No tenderness along palpation of muscle belly course of gastrocnemius, peroneal, and tibialis anterior muscles. Tenderness noted to lateral aspect of ankle, at apex of varus deformity. Severe varus deformity with dislocation of ankle noted. - Neurological Exam Neurological Exam: Alert, Awake, Oriented x3 - Psychiatric Exam Psychiatric exam: Normal Affect, Normal Mood Assessment and Plan - Assessment and Plan (Free Text) Assessment: 46 yo female patient w/ pmhx of HTN, ESRD (on dialysis), coagulopathy, DM, charcot right foot PVD w/ stable dry eschar of right heel, asymotomatic myositis. Plan: Patient evaluated and treated. Discussed in detail with attending. Medical provider and consulting service physician notes reviewed. Dr. Resendez, who was made aware of all pertinent changes and findings. Chart, labs, vitals reviewed;afebrile, WBC 9.2 (09/18/16) trending down. -Dressing change with wet to dry sterile gauze, and DSD. Multipodus boot to be worn at all times while in bed continue IV abx per ID -Distal leg pain will continue to be monitored. Myosistis to area is at this time asymptomatic. Continued exudate expression, absent purulence from eschar circumference increased circulation flow noted to foot, indicating potential to heal. Potential secondary imagine to evaluate progression of leg soft tissue reduction. -Physical therapy evaluation reviewed. Pt noted to tolerate supine<->sit transfers, and noted transferring on the LLE with a prosthesis in place is unsafe. -Limitation in progress of ambulation will exist due to need for modification of right leg [place] walker to offload area of eschar. Right knee flexion and hip flexion and extension exercises encouraged in lieu of weight- bearing of right leg to engage posterior leg muscle group concentric activity and anterior muscle group eccentric activity. Podiatry will continue to follow patient while in house.
[2016-09-19] MEDS: Albuterol-Ipratrop 3 mg / 0.5 (3 ml) UD INH SCH ×4 (08:53→19:40)
[2016-09-19] MEDS: Insulin Lispro (humaLOG) 100 Units/ml Inj SC SCH ×3 (08:54→17:52)
[2016-09-19] MEDS: Meropenem 500 MG in Sodium Chloride 0.9% 100 ML IVPB SCH (10:30)
[2016-09-19] MEDS: Linezolid 600 mg in D5W 300 ml 600 MG/300 ML BAG IVPB SCH ×2 (10:31→21:46)
[2016-09-19] MEDS: Pantoprazole 40 mg EC Tab PO SCH (10:38)
[2016-09-19] MEDS: Lidocaine 5% Patch TD SCH (10:39)
[2016-09-19] MEDS: Nystatin Ointment TOP SCH ×3 (10:55→17:57)
[2016-09-19] MEDS: Hydrocortisone 2.5% (Rectal) CREAM PR SCH ×2 (10:55→17:57)
--- NOTE | 2016-09-19 12:36 | CP.PCM.PN ---
Subjective - Date & Time of Evaluation Date of Evaluation: 09/19/16 Time of Evaluation: 12:30 - Subjective Subjective: Feels better Comfortable in bed Objective - Vital Signs/Intake and Output Vital Signs (last 24 hours): Temp Pulse Resp BP Pulse Ox 99.6 F 118 H 20 136/80 99 09/19/16 08:06 09/19/16 08:06 09/19/16 08:06 09/19/16 08:06 09/19/16 08:06 - Medications Medications: Current Medications Acetaminophen (Tylenol 325mg Tab) 650 mg PO Q4 PRN PRN Reason: Fever >100.4 F Last Admin: 09/16/16 17:51 Dose: 650 mg Acetaminophen (Tylenol 325mg Tab) 650 mg PO Q4 PRN PRN Reason: Pain, moderate (4-7) Last Admin: 09/16/16 22:34 Dose: 650 mg Albuterol Sulfate (Albuterol 0.083% Inhal Barbie (2.5 Mg/3 Ml) Ud) 2.5 mg INH RQ4 PRN PRN Reason: Shortness of Breath Albuterol/Ipratropium (Duoneb 3 Mg/0.5 Mg (3 Ml) Ud) 3 ml INH RQID [facility] Last Admin: 09/19/16 11:07 Dose: 3 ml Apixaban (Eliquis) 5 mg PO BID [facility] PRN Reason: Protocol Last Admin: 09/19/16 10:36 Dose: 5 mg Aspirin (Ecotrin) 81 mg PO DAILY [facility] Last Admin: 09/19/16 10:35 Dose: 81 mg Atorvastatin Calcium (Lipitor) 40 mg PO DAILY [facility] Last Admin: 09/19/16 10:39 Dose: 40 mg Benzonatate (Tessalon Perles) 200 mg PO TID PRN PRN Reason: Cough Last Admin: 09/19/16 10:37 Dose: 200 mg Cinacalcet (Sensipar) 30 mg PO DAILY [facility] Last Admin: 09/19/16 10:38 Dose: 30 mg Epoetin Tha (Procrit) 20,000 unit IV MWF [facility] Last Admin: 09/18/16 08:39 Dose: 20,000 unit Ergocalciferol (Drisdol 50,000 Intl Units Cap) 1 cap PO Q7D [facility] Stop: 11/06/16 11:16 Last Admin: 09/18/16 14:34 Dose: 1 cap Fluconazole (Diflucan) 100 mg PO DAILY [facility] Last Admin: 09/19/16 10:35 Dose: 100 mg Guaifenesin/Codeine Phosphate (Robitussin W/Codeine) 10 ml PO Q6 PRN PRN Reason: Cough Last Admin: 09/18/16 20:50 Dose: 10 ml Hydrocortisone (Anusol-Hc) 1 applic [place] BID [facility] Last Admin: 09/19/16 10:55 Dose: 1 applic Hydromorphone HCl (Dilaudid) 2 mg PO Q6 PRN PRN Reason: Pain, severe (8-10) Last Admin: 09/18/16 23:07 Dose: 2 mg Meropenem 500 mg/ Sodium (Chloride) 100 mls @ 100 mls/hr IVPB DAILY [facility] Last Admin: 09/19/16 10:30 Dose: 100 mls/hr Amikacin Sulfate 250 mg/ (Sodium Chloride) 101 mls @ 100.609 mls/hr IVPB MWF [facility] Last Admin: 09/18/16 08:34 Dose: 100.609 mls/hr Piperacillin Sod/Tazobactam (Sod 2.25 gm/ Sodium Chloride) 100 mls @ 100 mls/ hr IVPB Q12 [facility] Last Admin: 09/19/16 10:32 Dose: 100 mls/hr Linezolid (Zyvox 600mg/300ml D5w) 600 mg in 300 mls @ 300 mls/hr IVPB Q12 [facility] Last Admin: 09/19/16 10:31 Dose: 300 mls/hr Insulin Detemir (Levemir) 30 units SC HS [facility] Last Admin: 09/18/16 21:55 Dose: 30 units Insulin Human Lispro (Humalog) 8 units SC AC [facility] Last Admin: 09/19/16 08:54 Dose: 8 units Lidocaine (Lidoderm) 1 ea TD DAILY [facility] Last Admin: 09/19/16 10:39 Dose: 1 ea Nystatin (Mycostatin Oint) 1 applic TOP TID [facility] Last Admin: 09/19/16 10:55 Dose: 1 applic Ondansetron HCl (Zofran Inj) 4 mg IVP Q6 PRN PRN Reason: Nausea/Vomiting Last Admin: 09/19/16 10:26 Dose: 4 mg Pantoprazole Sodium (Protonix Ec Tab) 40 mg PO DAILY [facility] Last Admin: 09/19/16 10:38 Dose: 40 mg Sevelamer HCl (Renagel) 1,600 mg PO TID [facility] Last Admin: 09/19/16 10:37 Dose: 1,600 mg Topiramate (Topamax) 50 mg PO BID [facility] Last Admin: 09/19/16 10:38 Dose: 50 mg Vitamin B Complex/Vit C/Folic Acid (Nephro-Ajay) 1 tab PO DAILY [facility] Last Admin: 09/18/16 08:38 Dose: 1 tab - Labs Labs: 09/18/16 17:20 09/18/16 17:20 PT 16.5 SECONDS (9.6-11.2) H 08/28/16 16:11 INR 1.59 (0.92-1.08) H 08/28/16 16:11 APTT 38.7 SECONDS (23.3-32.5) H 08/28/16 16:11 - Respiratory Exam Additional comments: Lungs clear - Cardiovascular Exam Cardiovascular Exam: Tachycardia, REGULAR RHYTHM - Extremities Exam Additional comments: Lt BKA Assessment and Plan - Assessment and Plan (Free Text) Assessment: ESRD IDDM S/P sepsis Plan: HD was tolerated well yesterday BP stable Labs also stable Continue HD MWF
[2016-09-19] MEDS: Multivitamin Vitamin B Complex (Nephro-Vite) Tab PO SCH (12:54)
--- NOTE | 2016-09-19 15:30 | CP.PCM.PN ---
Subjective - Date & Time of Evaluation Date of Evaluation: 09/19/16 Time of Evaluation: 15:12 - Subjective Subjective: Patient has been transferred out of ICU to a regular medical/surgical floor since she has been hemodynamically stable. She attempted physical therapy earlier today, but she was unable to stand-pivot on her left prosthesis since she is so used to doing this with her right leg. As per physical therapist's notes, Dr. Resendez has advised no weight-bearing on the right leg. A complicating factor may also be the swelling in the left hand (minus 3 fingers) and extreme weakness in the right hand. So I am recommending use of a Maurice lift or sliding board to get the patient into a chair, then apply the left BK prosthesis and assist the patient to put weight on that left leg as training for the future. If the patient cannot stand and pivot, she cannot go home. If she cannot use her hands to assist with transfers her risk of falling is very great. So, I am asking for intensifying occupational therapy to improve the use of the hands. Patient has been experiencing phantom limb pain in the left leg (pain in the foot that is not there). Putting the rubber socket on the residual limb may help this by "fooling the brain" into thinking there is a foot down there. The right leg remains excessively [employer] the area just above the ankle and there continues to be pain on even slight pressure at the distal tibia/fibula. [Of note, the ESR on 09/13/16 was 120, and this is entirely consistent with osteomyelitis and/or myositis. She is on [address] Lemon. At this time we cannot do more since the patient is following the recommendation of Dr. Resendez not to have a right BK amputation. DM is being fairly well-controlled as per Dr. Fletcher. Patient is incontinent of stool. This is a new phenomenon. She attributes it to cough and to the Nepros daily. It may also be due to the antibiotics. We have decreased the Nepro to one can per day. I have encouraged her to ask for the bedpan whenever possible. For hemodialysis tomorrow. We will repeat the CBC, CMP and ESR along with random Amikacin level at that time. Objective - Vital Signs/Intake and Output Vital Signs (last 24 hours): Temp Pulse Resp BP Pulse Ox 99.6 F 118 H 20 136/80 99 09/19/16 08:06 09/19/16 08:06 09/19/16 08:06 09/19/16 08:06 09/19/16 08:06 - Medications Medications: Current Medications Acetaminophen (Tylenol 325mg Tab) 650 mg PO Q4 PRN PRN Reason: Fever >100.4 F Last Admin: 09/16/16 17:51 Dose: 650 mg Acetaminophen (Tylenol 325mg Tab) 650 mg PO Q4 PRN PRN Reason: Pain, moderate (4-7) Last Admin: 09/16/16 22:34 Dose: 650 mg Albuterol Sulfate (Albuterol 0.083% Inhal Barbie (2.5 Mg/3 Ml) Ud) 2.5 mg INH RQ4 PRN PRN Reason: Shortness of Breath Albuterol/Ipratropium (Duoneb 3 Mg/0.5 Mg (3 Ml) Ud) 3 ml INH RQID [facility] Last Admin: 09/19/16 15:04 Dose: 3 ml Apixaban (Eliquis) 5 mg PO BID [facility] PRN Reason: Protocol Last Admin: 09/19/16 10:36 Dose: 5 mg Aspirin (Ecotrin) 81 mg PO DAILY [facility] Last Admin: 09/19/16 10:35 Dose: 81 mg Atorvastatin Calcium (Lipitor) 40 mg PO DAILY [facility] Last Admin: 09/19/16 10:39 Dose: 40 mg Benzonatate (Tessalon Perles) 200 mg PO TID PRN PRN Reason: Cough Last Admin: 09/19/16 10:37 Dose: 200 mg Cinacalcet (Sensipar) 30 mg PO DAILY [facility] Last Admin: 09/19/16 10:38 Dose: 30 mg Epoetin Tha (Procrit) 20,000 unit IV MWF [facility] Last Admin: 09/18/16 08:39 Dose: 20,000 unit Ergocalciferol (Drisdol 50,000 Intl Units Cap) 1 cap PO Q7D [facility] Stop: 11/06/16 11:16 Last Admin: 09/18/16 14:34 Dose: 1 cap Fluconazole (Diflucan) 100 mg PO DAILY [facility] Last Admin: 09/19/16 10:35 Dose: 100 mg Guaifenesin/Codeine Phosphate (Robitussin W/Codeine) 10 ml PO Q6 PRN PRN Reason: Cough Last Admin: 09/18/16 20:50 Dose: 10 ml Hydrocortisone (Anusol-Hc) 1 applic IN BID [facility] Last Admin: 09/19/16 10:55 Dose: 1 applic Hydromorphone HCl (Dilaudid) 2 mg PO Q6 PRN PRN Reason: Pain, severe (8-10) Last Admin: 09/18/16 23:07 Dose: 2 mg Meropenem 500 mg/ Sodium (Chloride) 100 mls @ 100 mls/hr IVPB DAILY [facility] Last Admin: 09/19/16 10:30 Dose: 100 mls/hr Amikacin Sulfate 250 mg/ (Sodium Chloride) 101 mls @ 100.609 mls/hr IVPB MWF [facility] Last Admin: 09/18/16 08:34 Dose: 100.609 mls/hr Piperacillin Sod/Tazobactam (Sod 2.25 gm/ Sodium Chloride) 100 mls @ 100 mls/ hr IVPB Q12 [facility] Last Admin: 09/19/16 10:32 Dose: 100 mls/hr Linezolid (Zyvox 600mg/300ml D5w) 600 mg in 300 mls @ 300 mls/hr IVPB Q12 [facility] Last Admin: 09/19/16 10:31 Dose: 300 mls/hr Insulin Detemir (Levemir) 30 units SC HS [facility] Last Admin: 09/18/16 21:55 Dose: 30 units Insulin Human Lispro (Humalog) 8 units SC AC [facility] Last Admin: 09/19/16 12:52 Dose: 8 units Lidocaine (Lidoderm) 1 ea TD DAILY [facility] Last Admin: 09/19/16 10:39 Dose: 1 ea Nystatin (Mycostatin Oint) 1 applic TOP TID [facility] Last Admin: 09/19/16 12:55 Dose: 1 applic Ondansetron HCl (Zofran Inj) 4 mg IVP Q6 PRN PRN Reason: Nausea/Vomiting Last Admin: 09/19/16 10:26 Dose: 4 mg Pantoprazole Sodium (Protonix Ec Tab) 40 mg PO DAILY [facility] Last Admin: 09/19/16 10:38 Dose: 40 mg Sevelamer HCl (Renagel) 1,600 mg PO TID [facility] Last Admin: 09/19/16 12:54 Dose: 1,600 mg Topiramate (Topamax) 50 mg PO BID [facility] Last Admin: 09/19/16 10:38 Dose: 50 mg Vitamin B Complex/Vit C/Folic Acid (Nephro-Ajay) 1 tab PO DAILY [facility] Last Admin: 09/19/16 12:54 Dose: 1 tab - Labs Labs: 09/18/16 17:20 09/18/16 17:20 PT 16.5 SECONDS (9.6-11.2) H 08/28/16 16:11 INR 1.59 (0.92-1.08) H 08/28/16 16:11 APTT 38.7 SECONDS (23.3-32.5) H 08/28/16 16:11 - Constitutional Appears: No Acute Distress - Head Exam Head Exam: NORMAL INSPECTION - ENT Exam ENT Exam: Mucous Membranes Moist - Respiratory Exam Respiratory Exam: Clear to Ausculation Bilateral - Cardiovascular Exam Cardiovascular Exam: REGULAR RHYTHM, +S1, +S2 - GI/Abdominal Exam GI & Abdominal Exam: Soft, Normal Bowel Sounds - Extremities Exam Additional comments: The right leg remains excessively [employer] the area just above the ankle and there continues to be pain on even slight pressure at the distal tibia/fibula. The toes and foot are blackened and shriveled. There is no palpable DP pulse. Podiatry has been doing daily dressings. - Back Exam Back Exam: NORMAL INSPECTION - Neurological Exam Neurological Exam: Abnormal Gait, Alert, Awake, CN II-XII Intact, Oriented x3 - Psychiatric Exam Psychiatric exam: Anxious, Normal Affect - Skin Additional comments: Dressings in place R buttock and intergluteal area and beneath breasts. See wound care notes for details. Assessment and Plan (1) Osteomyelitis of ankle or foot Assessment & Plan: The right leg remains excessively [employer] the area just above the ankle and there continues to be pain on even slight pressure at the distal tibia/fibula. While there may be some warmth in the foot this is more due to inflammation than to vascularity. That the ankle/lower leg is warmer than the knee - in the face of arterial insufficiency - this indicates inflammation! [Of note, the ESR on 09/13/16 was 120, and this is also consistent with osteomyelitis and/or myositis. She is on [address] Lemon having almost succombed to septic shock. At this time we cannot do more since the patient is following the recommendation of Dr. Resendez not to have a right BK amputation. Status: Acute (2) ESRD (end stage renal disease) on dialysis Assessment & Plan: Management per nephrology Status: Chronic (3) DM type 2 (diabetes mellitus, type 2) Assessment & Plan: Management per Dr. Ambrose. Status: Chronic (4) Coagulopathy Assessment & Plan: Continue Eliquis and aspirin. Status: Chronic (5) Peripheral arterial occlusive disease Status: Chronic (6) Pneumonia Status: Acute (7) Decubitus ulcer of buttock, stage 2 Assessment & Plan: Wound care in progress Status: Acute
--- NOTE | 2016-09-19 15:49 | PN ---
DATE: 09/19/2016 ROOM: 660. SUBJECTIVE: This is a 46-year-old female with recent uncontrolled type 2 insulin-requiring diabetes, now being followed closely for metabolic management. Her glycemic levels are much improved at this time and the latest glucose levels have ranged from 133-160 mg/dL. Her latest chemistry showed a BUN of 27, sodium 137, potassium 4.0, chloride 96, CO2 29, glucose 133, and creatinine 4.2. She continu es to have lower extremity painful paresthesias, especially in the right leg as noted. There is pers istent tenderness and erythema in the distal aspect of the right lower extremity as noted. She is re ceiving ongoing multiple IV antibiotics for significant gram-negative bacteremia and underlying nonhe aling right neuropathic heel ulcer as noted. She is being followed closely by multiple specialists f or this complicated medical condition as noted. We will follow. Irene Ambrose MD cc: [id number] TT: 09/19/2016 15:48:43 Confirmation # [id number] Dictation # [id number] ravinder
[2016-09-19] MEDS: Insulin Detemir 100 Units/ml Inj SC SCH (21:49)
--- NOTE | 2016-09-20 00:35 | CP.PCM.PN ---
Subjective - Date & Time of Evaluation Date of Evaluation: 09/19/16 Time of Evaluation: 19:50 - Subjective Subjective: Patient is transferred out of the ICU to med surgery floor and is feeling more comfortable. She will be receiving PT to help her walking. No Seizures are seen. Objective - Vital Signs/Intake and Output Vital Signs (last 24 hours): Temp Pulse Resp BP Pulse Ox 99.5 F 127 H 18 106/71 100 09/19/16 16:13 09/19/16 16:13 09/19/16 16:13 09/19/16 16:13 09/19/16 16:13 - Medications Medications: Current Medications Acetaminophen (Tylenol 325mg Tab) 650 mg PO Q4 PRN PRN Reason: Fever >100.4 F Last Admin: 09/16/16 17:51 Dose: 650 mg Acetaminophen (Tylenol 325mg Tab) 650 mg PO Q4 PRN PRN Reason: Pain, moderate (4-7) Last Admin: 09/16/16 22:34 Dose: 650 mg Albuterol Sulfate (Albuterol 0.083% Inhal Barbie (2.5 Mg/3 Ml) Ud) 2.5 mg INH RQ4 PRN PRN Reason: Shortness of Breath Albuterol/Ipratropium (Duoneb 3 Mg/0.5 Mg (3 Ml) Ud) 3 ml INH RQID [facility] Last Admin: 09/19/16 19:40 Dose: 3 ml Apixaban (Eliquis) 5 mg PO BID [facility] PRN Reason: Protocol Last Admin: 09/19/16 17:55 Dose: 5 mg Aspirin (Ecotrin) 81 mg PO DAILY [facility] Last Admin: 09/19/16 10:35 Dose: 81 mg Atorvastatin Calcium (Lipitor) 40 mg PO DAILY [facility] Last Admin: 09/19/16 10:39 Dose: 40 mg Benzonatate (Tessalon Perles) 200 mg PO TID PRN PRN Reason: Cough Last Admin: 09/19/16 17:54 Dose: 200 mg Cinacalcet (Sensipar) 30 mg PO DAILY [facility] Last Admin: 09/19/16 10:38 Dose: 30 mg Epoetin Tha (Procrit) 20,000 unit IV MWF [facility] Last Admin: 09/18/16 08:39 Dose: 20,000 unit Ergocalciferol (Drisdol 50,000 Intl Units Cap) 1 cap PO Q7D [facility] Stop: 11/06/16 11:16 Last Admin: 09/18/16 14:34 Dose: 1 cap Fluconazole (Diflucan) 100 mg PO DAILY [facility] Last Admin: 09/19/16 10:35 Dose: 100 mg Guaifenesin/Codeine Phosphate (Robitussin W/Codeine) 10 ml PO Q6 PRN PRN Reason: Cough Last Admin: 09/18/16 20:50 Dose: 10 ml Hydrocortisone (Anusol-Hc) 1 applic NV BID [facility] Last Admin: 09/19/16 17:57 Dose: 1 applic Hydromorphone HCl (Dilaudid) 2 mg PO Q6 PRN PRN Reason: Pain, severe (8-10) Last Admin: 09/18/16 23:07 Dose: 2 mg Meropenem 500 mg/ Sodium (Chloride) 100 mls @ 100 mls/hr IVPB DAILY [facility] Last Admin: 09/19/16 10:30 Dose: 100 mls/hr Amikacin Sulfate 250 mg/ (Sodium Chloride) 101 mls @ 100.609 mls/hr IVPB MWF [facility] Last Admin: 09/18/16 08:34 Dose: 100.609 mls/hr Piperacillin Sod/Tazobactam (Sod 2.25 gm/ Sodium Chloride) 100 mls @ 100 mls/ hr IVPB Q12 [facility] Last Admin: 09/19/16 20:17 Dose: 100 mls/hr Linezolid (Zyvox 600mg/300ml D5w) 600 mg in 300 mls @ 300 mls/hr IVPB Q12 [facility] Last Admin: 09/19/16 21:46 Dose: 300 mls/hr Insulin Detemir (Levemir) 30 units SC HS [facility] Last Admin: 09/19/16 21:49 Dose: 30 units Insulin Human Lispro (Humalog) 8 units SC AC [facility] Last Admin: 09/19/16 17:52 Dose: 8 units Lidocaine (Lidoderm) 1 ea TD DAILY [facility] Last Admin: 09/19/16 10:39 Dose: 1 ea Nystatin (Mycostatin Oint) 1 applic TOP TID [facility] Last Admin: 09/19/16 17:57 Dose: 1 applic Ondansetron HCl (Zofran Inj) 4 mg IVP Q6 PRN PRN Reason: Nausea/Vomiting Last Admin: 09/19/16 10:26 Dose: 4 mg Pantoprazole Sodium (Protonix Ec Tab) 40 mg PO DAILY [facility] Last Admin: 09/19/16 10:38 Dose: 40 mg Sevelamer HCl (Renagel) 1,600 mg PO TID [facility] Last Admin: 09/19/16 17:54 Dose: 1,600 mg Topiramate (Topamax) 50 mg PO BID [facility] Last Admin: 09/19/16 17:55 Dose: 50 mg Vitamin B Complex/Vit C/Folic Acid (Nephro-Ajay) 1 tab PO DAILY [facility] Last Admin: 09/19/16 12:54 Dose: 1 tab - Labs Labs: 09/18/16 17:20 09/18/16 17:20 PT 16.5 SECONDS (9.6-11.2) H 08/28/16 16:11 INR 1.59 (0.92-1.08) H 08/28/16 16:11 APTT 38.7 SECONDS (23.3-32.5) H 08/28/16 16:11 Assessment and Plan (1) Diabetes Status: Chronic (2) ESRD (end stage renal disease) Status: Chronic (3) Cellulitis of leg Status: Acute (4) Hyperlipidemia Status: Acute (5) Back pain Status: Acute (6) Bacteremia due to Gram-negative bacteria Status: Acute (7) Diabetes mellitus type 2 with peripheral artery disease Status: Acute (8) PVD (peripheral vascular disease) Status: Acute
[2016-09-20] MEDS: guaiFENesin-Codeine 100-10mg/5ml Syrup (5 ml) UD PO PRN (01:43)
--- NOTE | 2016-09-20 06:43 | CP.PCM.PN ---
Subjective - Date & Time of Evaluation Date of Evaluation: 09/20/16 Time of Evaluation: 06:43 - Subjective Subjective: 46 year old female seen at bedside regarding heel eschar and resolving leg cellulits. Pt seen resting comfortably in bed at time of visit. Patient states that she has had no major overnight events. Patient is reports no resting right leg pain pain in her right foot and ankl, or on passive movement. She denies recent f/n/v/c/sob/cp at this time. Objective - Vital Signs/Intake and Output Vital Signs (last 24 hours): Temp Pulse Resp BP Pulse Ox 99.0 F 115 H 19 112/67 95 09/20/16 00:00 09/20/16 00:00 09/20/16 00:00 09/20/16 00:00 09/20/16 00:00 - Medications Medications: Current Medications Acetaminophen (Tylenol 325mg Tab) 650 mg PO Q4 PRN PRN Reason: Fever >100.4 F Last Admin: 09/16/16 17:51 Dose: 650 mg Acetaminophen (Tylenol 325mg Tab) 650 mg PO Q4 PRN PRN Reason: Pain, moderate (4-7) Last Admin: 09/16/16 22:34 Dose: 650 mg Albuterol Sulfate (Albuterol 0.083% Inhal Barbie (2.5 Mg/3 Ml) Ud) 2.5 mg INH RQ4 PRN PRN Reason: Shortness of Breath Albuterol/Ipratropium (Duoneb 3 Mg/0.5 Mg (3 Ml) Ud) 3 ml INH RQID [facility] Last Admin: 09/19/16 19:40 Dose: 3 ml Apixaban (Eliquis) 5 mg PO BID [facility] PRN Reason: Protocol Last Admin: 09/19/16 17:55 Dose: 5 mg Aspirin (Ecotrin) 81 mg PO DAILY [facility] Last Admin: 09/19/16 10:35 Dose: 81 mg Atorvastatin Calcium (Lipitor) 40 mg PO DAILY [facility] Last Admin: 09/19/16 10:39 Dose: 40 mg Benzonatate (Tessalon Perles) 200 mg PO TID PRN PRN Reason: Cough Last Admin: 09/19/16 17:54 Dose: 200 mg Cinacalcet (Sensipar) 30 mg PO DAILY [facility] Last Admin: 09/19/16 10:38 Dose: 30 mg Epoetin Tha (Procrit) 20,000 unit IV MWF [facility] Last Admin: 09/18/16 08:39 Dose: 20,000 unit Ergocalciferol (Drisdol 50,000 Intl Units Cap) 1 cap PO Q7D [facility] Stop: 11/06/16 11:16 Last Admin: 09/18/16 14:34 Dose: 1 cap Fluconazole (Diflucan) 100 mg PO DAILY [facility] Last Admin: 09/19/16 10:35 Dose: 100 mg Guaifenesin/Codeine Phosphate (Robitussin W/Codeine) 10 ml PO Q6 PRN PRN Reason: Cough Last Admin: 09/20/16 01:43 Dose: 10 ml Hydrocortisone (Anusol-Hc) 1 applic [place] BID [facility] Last Admin: 09/19/16 17:57 Dose: 1 applic Hydromorphone HCl (Dilaudid) 2 mg PO Q6 PRN PRN Reason: Pain, severe (8-10) Last Admin: 09/18/16 23:07 Dose: 2 mg Meropenem 500 mg/ Sodium (Chloride) 100 mls @ 100 mls/hr IVPB DAILY [facility] Last Admin: 09/19/16 10:30 Dose: 100 mls/hr Amikacin Sulfate 250 mg/ (Sodium Chloride) 101 mls @ 100.609 mls/hr IVPB MWF [facility] Last Admin: 09/18/16 08:34 Dose: 100.609 mls/hr Piperacillin Sod/Tazobactam (Sod 2.25 gm/ Sodium Chloride) 100 mls @ 100 mls/ hr IVPB Q12 [facility] Last Admin: 09/19/16 20:17 Dose: 100 mls/hr Linezolid (Zyvox 600mg/300ml D5w) 600 mg in 300 mls @ 300 mls/hr IVPB Q12 [facility] Last Admin: 09/19/16 21:46 Dose: 300 mls/hr Insulin Detemir (Levemir) 30 units SC HS [facility] Last Admin: 09/19/16 21:49 Dose: 30 units Insulin Human Lispro (Humalog) 8 units SC AC [facility] Last Admin: 09/19/16 17:52 Dose: 8 units Lidocaine (Lidoderm) 1 ea TD DAILY [facility] Last Admin: 09/19/16 10:39 Dose: 1 ea Nystatin (Mycostatin Oint) 1 applic TOP TID [facility] Last Admin: 09/19/16 17:57 Dose: 1 applic Ondansetron HCl (Zofran Inj) 4 mg IVP Q6 PRN PRN Reason: Nausea/Vomiting Last Admin: 09/19/16 10:26 Dose: 4 mg Pantoprazole Sodium (Protonix Ec Tab) 40 mg PO DAILY [facility] Last Admin: 09/19/16 10:38 Dose: 40 mg Sevelamer HCl (Renagel) 1,600 mg PO TID [facility] Last Admin: 09/19/16 17:54 Dose: 1,600 mg Topiramate (Topamax) 50 mg PO BID [facility] Last Admin: 09/19/16 17:55 Dose: 50 mg Vitamin B Complex/Vit C/Folic Acid (Nephro-Ajay) 1 tab PO DAILY [facility] Last Admin: 09/19/16 12:54 Dose: 1 tab - Labs Labs: 09/18/16 17:20 09/18/16 17:20 PT 16.5 SECONDS (9.6-11.2) H 08/28/16 16:11 INR 1.59 (0.92-1.08) H 08/28/16 16:11 APTT 38.7 SECONDS (23.3-32.5) H 08/28/16 16:11 - Constitutional Appears: Well, Non-toxic, No Acute Distress, Chronically Ill - Extremities Exam Additional comments: Right lower extremity focused exam: VASC- DP and PT pulses non-palpable, capillary refill < 5 sec to digits x 5, Mild edema noted to anterior aspect of leg and dorsum of foot, signs decreased, edema with near full return of relaxed skin tension lines. Minor leg callor present, absent erythema. NEURO-Gross pedal sensation is diminished DERM- Superficial dry eschar noted to plantar aspect of heel, with noted sanguinous crust along periphery, with noted increased serous exudate crust, noted minor purulence. Absent drainage on compression. No increased warmth noted , no local or ascending erythema, no acute signs infection. Eschar itself continues softening marlin, only porterior superio margin remains firm and indurated. Absent fluctuance. ORTHO- No tenderness along palpation of muscle belly course of gastrocnemius, peroneal, and tibialis anterior muscles. Tenderness noted to lateral aspect of ankle, at apex of varus deformity. Severe varus deformity with dislocation of ankle noted. - Neurological Exam Neurological Exam: Alert, Oriented x3 - Psychiatric Exam Psychiatric exam: Normal Affect, Normal Mood Assessment and Plan - Assessment and Plan (Free Text) Assessment: 46 yo female patient w/ pmhx of HTN, ESRD (on dialysis), coagulopathy, DM, charcot right foot PVD w/ stable dry eschar of right heel, asymotomatic myositis Plan: Patient evaluated and treated. Discussed in detail with attending. Medical provider and consulting service physician notes reviewed. Dr. Resendez, who was made aware of all pertinent changes and findings. Chart, labs, vitals reviewed;afebrile, WBC 9.2 (09/18/16) trending down. -Dressing change with wet to dry sterile gauze, and DSD. Multipodus boot to be worn at all times while in bed continue IV abx per ID -Physical therapy evaluation reviewed. Podiatry will continue to follow patient while in house
[2016-09-20] MEDS: Albuterol-Ipratrop 3 mg / 0.5 (3 ml) UD INH SCH ×4 (07:11→15:15)
[2016-09-20] MEDS: Multivitamin Vitamin B Complex (Nephro-Vite) Tab PO SCH (08:16)
[2016-09-20] MEDS: Pantoprazole 40 mg EC Tab PO SCH (08:18)
[2016-09-20] MEDS: Insulin Lispro (humaLOG) 100 Units/ml Inj SC SCH ×3 (08:31→18:05)
[2016-09-20] MEDS: Lidocaine 5% Patch TD SCH (08:33)
[2016-09-20] MEDS: Linezolid 600 mg in D5W 300 ml 600 MG/300 ML BAG IVPB SCH ×2 (08:43→22:06)
[2016-09-20] MEDS: Hydrocortisone 2.5% (Rectal) CREAM PR SCH ×2 (09:05→18:07)
[2016-09-20] MEDS: Nystatin Ointment TOP SCH ×3 (09:05→18:06)
[2016-09-20] MEDS: Meropenem 500 MG in Sodium Chloride 0.9% 100 ML IVPB SCH (11:23)
--- NOTE | 2016-09-20 11:32 | CP.PCM.PN ---
Subjective - Date & Time of Evaluation Date of Evaluation: 09/20/16 Time of Evaluation: 11:30 - Subjective Subjective: Sitting up in chair. Feels better Objective - Vital Signs/Intake and Output Vital Signs (last 24 hours): Temp Pulse Resp BP Pulse Ox 97.8 F 115 H 18 122/67 92 L 09/20/16 07:48 09/20/16 07:48 09/20/16 07:48 09/20/16 07:48 09/20/16 07:48 - Medications Medications: Current Medications Acetaminophen (Tylenol 325mg Tab) 650 mg PO Q4 PRN PRN Reason: Fever >100.4 F Last Admin: 09/16/16 17:51 Dose: 650 mg Acetaminophen (Tylenol 325mg Tab) 650 mg PO Q4 PRN PRN Reason: Pain, moderate (4-7) Last Admin: 09/16/16 22:34 Dose: 650 mg Albuterol Sulfate (Albuterol 0.083% Inhal Barbie (2.5 Mg/3 Ml) Ud) 2.5 mg INH RQ4 PRN PRN Reason: Shortness of Breath Albuterol/Ipratropium (Duoneb 3 Mg/0.5 Mg (3 Ml) Ud) 3 ml INH RQID [facility] Last Admin: 09/20/16 07:12 Dose: 3 ml Apixaban (Eliquis) 5 mg PO BID [facility] PRN Reason: Protocol Last Admin: 09/20/16 08:18 Dose: 5 mg Aspirin (Ecotrin) 81 mg PO DAILY [facility] Last Admin: 09/20/16 08:16 Dose: 81 mg Atorvastatin Calcium (Lipitor) 40 mg PO DAILY [facility] Last Admin: 09/20/16 08:16 Dose: 40 mg Benzonatate (Tessalon Perles) 200 mg PO TID PRN PRN Reason: Cough Last Admin: 09/20/16 08:16 Dose: 200 mg Cinacalcet (Sensipar) 30 mg PO DAILY [facility] Last Admin: 09/20/16 08:16 Dose: 30 mg Epoetin Tha (Procrit) 20,000 unit IV MWF [facility] Last Admin: 09/18/16 08:39 Dose: 20,000 unit Ergocalciferol (Drisdol 50,000 Intl Units Cap) 1 cap PO Q7D [facility] Stop: 11/06/16 11:16 Last Admin: 09/18/16 14:34 Dose: 1 cap Fluconazole (Diflucan) 100 mg PO DAILY [facility] Last Admin: 09/20/16 08:15 Dose: 100 mg Guaifenesin/Codeine Phosphate (Robitussin W/Codeine) 10 ml PO Q6 PRN PRN Reason: Cough Last Admin: 09/20/16 01:43 Dose: 10 ml Hydrocortisone (Anusol-Hc) 1 applic GA BID [facility] Last Admin: 09/20/16 09:05 Dose: 1 applic Hydromorphone HCl (Dilaudid) 2 mg PO Q6 PRN PRN Reason: Pain, severe (8-10) Last Admin: 09/20/16 10:10 Dose: 2 mg Meropenem 500 mg/ Sodium (Chloride) 100 mls @ 100 mls/hr IVPB DAILY [facility] Last Admin: 09/20/16 11:23 Dose: 100 mls/hr Amikacin Sulfate 250 mg/ (Sodium Chloride) 101 mls @ 100.609 mls/hr IVPB MWF [facility] Last Admin: 09/20/16 09:02 Dose: 100.609 mls/hr Piperacillin Sod/Tazobactam (Sod 2.25 gm/ Sodium Chloride) 100 mls @ 100 mls/ hr IVPB Q12 [facility] Last Admin: 09/20/16 08:34 Dose: 100 mls/hr Linezolid (Zyvox 600mg/300ml D5w) 600 mg in 300 mls @ 300 mls/hr IVPB Q12 [facility] Last Admin: 09/20/16 08:43 Dose: 300 mls/hr Insulin Detemir (Levemir) 30 units SC HS [facility] Last Admin: 09/19/16 21:49 Dose: 30 units Insulin Human Lispro (Humalog) 8 units SC AC [facility] Last Admin: 09/20/16 08:31 Dose: 8 units Lidocaine (Lidoderm) 1 ea TD DAILY [facility] Last Admin: 09/20/16 08:33 Dose: 1 ea Nystatin (Mycostatin Oint) 1 applic TOP TID [facility] Last Admin: 09/20/16 09:05 Dose: 1 applic Ondansetron HCl (Zofran Inj) 4 mg IVP Q6 PRN PRN Reason: Nausea/Vomiting Last Admin: 09/19/16 10:26 Dose: 4 mg Pantoprazole Sodium (Protonix Ec Tab) 40 mg PO DAILY [facility] Last Admin: 09/20/16 08:18 Dose: 40 mg Sevelamer HCl (Renagel) 1,600 mg PO TID [facility] Last Admin: 09/20/16 08:16 Dose: 1,600 mg Topiramate (Topamax) 50 mg PO BID [facility] Last Admin: 09/20/16 08:16 Dose: 50 mg Vitamin B Complex/Vit C/Folic Acid (Nephro-Ajay) 1 tab PO DAILY [facility] Last Admin: 09/20/16 08:16 Dose: 1 tab - Labs Labs: 09/18/16 17:20 09/18/16 17:20 PT 16.5 SECONDS (9.6-11.2) H 08/28/16 16:11 INR 1.59 (0.92-1.08) H 08/28/16 16:11 APTT 38.7 SECONDS (23.3-32.5) H 08/28/16 16:11 - Respiratory Exam Additional comments: Lungs clear - Cardiovascular Exam Cardiovascular Exam: Tachycardia, REGULAR RHYTHM Additional comments: 114/min - Extremities Exam Additional comments: Lt BKA Assessment and Plan - Assessment and Plan (Free Text) Assessment: ESRD S/P sepsis IDDM PVD Plan: For dialysis today. Labs stable Contnue HD MWF
--- NOTE | 2016-09-20 13:38 | PN ---
DATE: 09/20/2016 ROOM: 660 This is a 46-year-old female with recent uncontrolled type 2 insulin-requiring diabetes, now being fo llowed closely for metabolic management. Her glycemic levels are fluctuating, but much improved at t his time and the latest glucose values have ranged from 133-160 mg/dL. Her latest chemistries includ e a BUN of 27, sodium 137, potassium 4.0, chloride 96, CO2 of 29, glucose 133, and creatinine 4.2. S he continues to have severe painful lower extremity paresthesias and dysesthesias related to severe u nderlying diabetic polyneuropathy as noted. Moreover, she also continues to have lower extremity ten derness and erythema in the distal aspect of the right leg with an underlying nonhealing neuropathic heel ulcer as noted. She is undergoing IV antibiotic management for right heel cellulitis and osteom yelitis with a nonhealing neuropathic heel ulcer as mentioned. We will continue at this time the diego e basal and bolus insulin regimen as given with Humalog given as 8 units subQ t.i.d. before meals as ordered. We will continue the Levemir given as 30 units subQ at bedtime daily as needed. We will ti trate incrementally as indicated to optimize metabolic control. We will follow. Irene Ambrose MD cc: [id number] TT: 09/20/2016 13:38:04 Confirmation # [id number] Dictation # [id number]
[2016-09-20 14:56] LABS: BASO # 0.1 K/uL (0.0-0.2); BASO % 0.8 % (0.0-2.0); EOS # 0.5 K/uL (0.0-0.7); EOS % 4.3 % (0.0-4.0); HEMATOCRIT 30.6 % (34.0-47.0); LYMPH # 0.7 K/uL (1.0-4.3); LYMPH % 6.2 % (20.0-40.0); MEAN CELL VOLUME 90.9 fl (81.0-99.0); MEAN CORPUSCULAR HGB CONC 31.9 g/dL (33.0-37.0); MEAN PLATELET VOLUME 8.6 fl (7.2-11.7); MONO # 0.4 K/uL (0.0-0.8); NEUT # 9.1 K/uL (1.8-7.0); NEUT % 84.7 % (50.0-75.0); PLATELET COUNT 239 K/uL (130-400); RED CELL DISTRIBUTION WIDTH 19.6 % (11.5-14.5); WHITE BLOOD COUNT 10.8 K/uL (4.8-10.8)
[2016-09-20 15:05] LABS: ALB/GLOB RATIO 0.7 (1.0-2.1); BILIRUBIN,TOTAL 0.7 mg/dl (0.2-1.3); CALCIUM 9.4 mg/dL (8.4-10.2); POTASSIUM 4.1 MMOL/L (3.6-5.0); TOTAL PROTEIN 8.8 G/DL (6.3-8.2)
[2016-09-20 15:32] LABS: EOSINOPHIL 3 % (0-7); NEUTROPHIL 86 % (42-75); TOTAL CELLS COUNTED 100
[2016-09-20 15:34] LABS: LARGE PLATELETS PRESENT
[2016-09-20 15:41] LABS: ERYTHROCYTE SEDIMENTATION RATE 115 mm/hr (0-20)
[2016-09-20] MEDS: Epoetin Alfa 20000 UNIT/ML Inj IV SCH (15:50)
--- NOTE | 2016-09-20 16:07 | CP.PCM.PN ---
Subjective - Date & Time of Evaluation Date of Evaluation: 09/20/16 Time of Evaluation: 16:00 - Subjective Subjective: Patient was lifted OOB via a Maurice lift and sat is a chair for physical and occupational therapy. It took 3 staffers to enable her to stand on her left leg prosthesis because of weakness. As per previous instructions by Dr. Gordon patient is not to put weight on right leg. She did receive some PT for left leg and OT for hand strengthening. However, upon being returned to bed so that hemodialysis could begin she experience severe pain in the right foot/ankle/lower leg such that she cried out. Then, as she was being started on HD, she developed severe shaking chills. Her temp was 97 deg. Pulse chris to 145. BP was 205/105. She complained of severe pain in right lower leg, which was noted to be hot and swollen. Only when the patient was medicated with both IV (0.5mg) and po (2mg) Dilaudid did the chills and pain subside. The pulse slowed to her usual rate around 115-120 and the blood pressure came down. At no time did she have chest pain or dyspnea. Blood was drawn from the Permacath for aerobic, anaerobic, and fungal cultures. ECG was done and texted to Dr. Richard Shepard, who confirmed that there were no significant changes. CXR will be done as soon as hemodialysis is completed. Glucose was only 126, so the pre-supper insulin will be held. Objective - Vital Signs/Intake and Output Vital Signs (last 24 hours): Temp Pulse Resp BP Pulse Ox 97.8 F 115 H 18 122/67 95 09/20/16 07:48 09/20/16 07:48 09/20/16 07:48 09/20/16 14:36 09/20/16 14:36 At 4pm pulse still around 145, but BP is now down to 160/54. Patient's pain has been relieved. - Medications Medications: Current Medications Acetaminophen (Tylenol 325mg Tab) 650 mg PO Q4 PRN PRN Reason: Fever >100.4 F Last Admin: 09/16/16 17:51 Dose: 650 mg Acetaminophen (Tylenol 325mg Tab) 650 mg PO Q4 PRN PRN Reason: Pain, moderate (4-7) Last Admin: 09/16/16 22:34 Dose: 650 mg Albuterol Sulfate (Albuterol 0.083% Inhal Barbie (2.5 Mg/3 Ml) Ud) 2.5 mg INH RQ4 PRN PRN Reason: Shortness of Breath Albuterol/Ipratropium (Duoneb 3 Mg/0.5 Mg (3 Ml) Ud) 3 ml INH RQID [facility] Last Admin: 09/20/16 15:15 Dose: Not Given Apixaban (Eliquis) 5 mg PO BID [facility] PRN Reason: Protocol Last Admin: 09/20/16 08:18 Dose: 5 mg Aspirin (Ecotrin) 81 mg PO DAILY [facility] Last Admin: 09/20/16 08:16 Dose: 81 mg Atorvastatin Calcium (Lipitor) 40 mg PO DAILY [facility] Last Admin: 09/20/16 08:16 Dose: 40 mg Benzonatate (Tessalon Perles) 200 mg PO TID PRN PRN Reason: Cough Last Admin: 09/20/16 08:16 Dose: 200 mg Cinacalcet (Sensipar) 30 mg PO DAILY [facility] Last Admin: 09/20/16 08:16 Dose: 30 mg Epoetin Tha (Procrit) 20,000 unit IV MWF [facility] Last Admin: 09/20/16 15:50 Dose: 20,000 unit Ergocalciferol (Drisdol 50,000 Intl Units Cap) 1 cap PO Q7D [facility] Stop: 11/06/16 11:16 Last Admin: 09/18/16 14:34 Dose: 1 cap Fluconazole (Diflucan) 100 mg PO DAILY [facility] Last Admin: 09/20/16 08:15 Dose: 100 mg Guaifenesin/Codeine Phosphate (Robitussin W/Codeine) 10 ml PO Q6 PRN PRN Reason: Cough Last Admin: 09/20/16 01:43 Dose: 10 ml Hydrocortisone (Anusol-Hc) 1 applic [place] BID [facility] Last Admin: 09/20/16 09:05 Dose: 1 applic Hydromorphone HCl (Dilaudid) 2 mg PO Q6 PRN PRN Reason: Pain, severe (8-10) Last Admin: 09/20/16 15:25 Dose: 2 mg Meropenem 500 mg/ Sodium (Chloride) 100 mls @ 100 mls/hr IVPB DAILY [facility] Last Admin: 09/20/16 11:23 Dose: 100 mls/hr Amikacin Sulfate 250 mg/ (Sodium Chloride) 101 mls @ 100.609 mls/hr IVPB MWF [facility] Last Admin: 09/20/16 09:02 Dose: 100.609 mls/hr Piperacillin Sod/Tazobactam (Sod 2.25 gm/ Sodium Chloride) 100 mls @ 100 mls/ hr IVPB Q12 [facility] Last Admin: 09/20/16 08:34 Dose: 100 mls/hr Linezolid (Zyvox 600mg/300ml D5w) 600 mg in 300 mls @ 300 mls/hr IVPB Q12 [facility] Last Admin: 09/20/16 08:43 Dose: 300 mls/hr Insulin Detemir (Levemir) 30 units SC HS [facility] Last Admin: 09/19/16 21:49 Dose: 30 units Insulin Human Lispro (Humalog) 8 units SC AC [facility] Last Admin: 09/20/16 13:09 Dose: 8 units Lidocaine (Lidoderm) 1 ea TD DAILY [facility] Last Admin: 09/20/16 08:33 Dose: 1 ea Nystatin (Mycostatin Oint) 1 applic TOP TID [facility] Last Admin: 09/20/16 13:11 Dose: 1 applic Ondansetron HCl (Zofran Inj) 4 mg IVP Q6 PRN PRN Reason: Nausea/Vomiting Last Admin: 09/19/16 10:26 Dose: 4 mg Pantoprazole Sodium (Protonix Ec Tab) 40 mg PO DAILY [facility] Last Admin: 09/20/16 08:18 Dose: 40 mg Sevelamer HCl (Renagel) 1,600 mg PO TID [facility] Last Admin: 09/20/16 13:11 Dose: 1,600 mg Topiramate (Topamax) 50 mg PO BID [facility] Last Admin: 09/20/16 08:16 Dose: 50 mg Vitamin B Complex/Vit C/Folic Acid (Nephro-Ajay) 1 tab PO DAILY [facility] Last Admin: 09/20/16 08:16 Dose: 1 tab - Labs Labs: 09/20/16 14:50 09/20/16 14:50 PT 16.5 SECONDS (9.6-11.2) H 08/28/16 16:11 INR 1.59 (0.92-1.08) H 08/28/16 16:11 APTT 38.7 SECONDS (23.3-32.5) H 08/28/16 16:11 - Constitutional Appears: Other (Initial shaking chills, tears and anxiety relieved by Dilaudid. Now sleeping.) - Head Exam Head Exam: NORMAL INSPECTION - Eye Exam Eye Exam: Normal appearance - ENT Exam ENT Exam: Mucous Membranes Moist - Neck Exam Neck Exam: Normal Inspection Additional comments: R subclavian Permacath working well. - Respiratory Exam Respiratory Exam: Clear to Ausculation Bilateral Additional comments: Unable to auscultate the bases well since patient is on hemodialysis. - Cardiovascular Exam Cardiovascular Exam: REGULAR RHYTHM, +S1, +S2 - GI/Abdominal Exam GI & Abdominal Exam: Soft, Normal Bowel Sounds - Extremities Exam Additional comments: R foot/ankle dressed. R lower leg is edematous, hot, erythematous, and exquisitely tender. - Neurological Exam Neurological Exam: Alert, Awake, CN II-XII Intact, Oriented x3 Additional comments: Non-ambulatory. - Skin Additional comments: Previously diaphoretic, but now dry and warm. Decubiti not evaluated due to positioning problems today. Assessment and Plan (1) Osteomyelitis of ankle or foot Assessment & Plan: Clearly more is going on with the right ankle/foot/lower leg. I suspect the patient may have showered bacteria from the infected bone and muscle into the blood stream. The big fear is that she will develop another episode of systemic inflammatory response syndrome. For now, await blood cultures and check CXR. Continue current antibiotics. Discussed with Dr. Richard Shepard. No need for cardiac enzymes as these will be elevated simply because of tachycardia and hemodialysis. No need to treat the tachycardia. Control blood pressure by managing pain. Status: Acute (2) ESRD (end stage renal disease) on dialysis Assessment & Plan: Maintain hemodialysis schedule. Status: Chronic (3) DM type 2 (diabetes mellitus, type 2) Assessment & Plan: Hold supper insulin. Otherwise no changes for now. Status: Chronic (4) Coagulopathy Assessment & Plan: Continue Eliquis and aspirin. Status: Chronic (5) Peripheral arterial occlusive disease Assessment & Plan: Avoid beta-blockers (as previously written). Status: Chronic (6) Pneumonia Assessment & Plan: Check CXR. Will make aerosolized albuterol/ipratroprium treatments prn only because of tachycardia. Status: Acute (7) Decubitus ulcer of buttock, stage 2 Status: Acute
[2016-09-20] MEDS: Insulin Detemir 100 Units/ml Inj SC SCH (22:08)
--- NOTE | 2016-09-21 01:14 | CP.PCM.PN ---
Subjective - Date & Time of Evaluation Date of Evaluation: 09/20/16 Time of Evaluation: 20:45 - Subjective Subjective: No syncopal spells, no seizures, doing better in general. She was out of bed to chair with major help and had to be lifted in order to be able to stand on her left LE protests. She is not supposed to stand on the Right foot. She received Dilaudid to control her Right foot pain. Objective - Vital Signs/Intake and Output Vital Signs (last 24 hours): Temp Pulse Resp BP Pulse Ox 99.4 F 116 H 18 122/68 92 L 09/21/16 00:06 09/21/16 00:06 09/21/16 00:06 09/21/16 00:06 09/21/16 00:06 - Medications Medications: Current Medications Acetaminophen (Tylenol 325mg Tab) 650 mg PO Q4 PRN PRN Reason: Fever >100.4 F Last Admin: 09/16/16 17:51 Dose: 650 mg Acetaminophen (Tylenol 325mg Tab) 650 mg PO Q4 PRN PRN Reason: Pain, moderate (4-7) Last Admin: 09/16/16 22:34 Dose: 650 mg Albuterol Sulfate (Albuterol 0.083% Inhal Barbie (2.5 Mg/3 Ml) Ud) 2.5 mg INH RQ4 PRN PRN Reason: Shortness of Breath Albuterol/Ipratropium (Duoneb 3 Mg/0.5 Mg (3 Ml) Ud) 3 ml INH RQ4 PRN PRN Reason: Shortness of Breath Apixaban (Eliquis) 5 mg PO BID [facility] PRN Reason: Protocol Last Admin: 09/20/16 18:03 Dose: 5 mg Aspirin (Ecotrin) 81 mg PO DAILY [facility] Last Admin: 09/20/16 08:16 Dose: 81 mg Atorvastatin Calcium (Lipitor) 40 mg PO DAILY [facility] Last Admin: 09/20/16 08:16 Dose: 40 mg Benzonatate (Tessalon Perles) 200 mg PO TID PRN PRN Reason: Cough Last Admin: 09/20/16 08:16 Dose: 200 mg Cinacalcet (Sensipar) 30 mg PO DAILY [facility] Last Admin: 09/20/16 08:16 Dose: 30 mg Epoetin Tha (Procrit) 20,000 unit IV F [facility] Last Admin: 09/20/16 15:50 Dose: 20,000 unit Ergocalciferol (Drisdol 50,000 Intl Units Cap) 1 cap PO Q7D [facility] Stop: 11/06/16 11:16 Last Admin: 09/18/16 14:34 Dose: 1 cap Fluconazole (Diflucan) 100 mg PO DAILY [facility] Last Admin: 09/20/16 08:15 Dose: 100 mg Guaifenesin/Codeine Phosphate (Robitussin W/Codeine) 10 ml PO Q6 PRN PRN Reason: Cough Last Admin: 09/20/16 01:43 Dose: 10 ml Hydrocortisone (Anusol-Hc) 1 applic [place] BID [facility] Last Admin: 09/20/16 18:07 Dose: 1 applic Hydromorphone HCl (Dilaudid) 2 mg PO Q6 PRN PRN Reason: Pain, severe (8-10) Last Admin: 09/20/16 15:25 Dose: 2 mg Meropenem 500 mg/ Sodium (Chloride) 100 mls @ 100 mls/hr IVPB DAILY [facility] Last Admin: 09/20/16 11:23 Dose: 100 mls/hr Amikacin Sulfate 250 mg/ (Sodium Chloride) 101 mls @ 100.609 mls/hr IVPB MWF [facility] Last Admin: 09/20/16 09:02 Dose: 100.609 mls/hr Piperacillin Sod/Tazobactam (Sod 2.25 gm/ Sodium Chloride) 100 mls @ 100 mls/ hr IVPB Q12 [facility] Last Admin: 09/20/16 20:50 Dose: 100 mls/hr Linezolid (Zyvox 600mg/300ml D5w) 600 mg in 300 mls @ 300 mls/hr IVPB Q12 [facility] Last Admin: 09/20/16 22:06 Dose: 300 mls/hr Insulin Detemir (Levemir) 30 units SC HS [facility] Last Admin: 09/20/16 22:08 Dose: 30 units Insulin Human Lispro (Humalog) 8 units SC AC [facility] Last Admin: 09/20/16 18:05 Dose: Not Given Lidocaine (Lidoderm) 1 ea TD DAILY [facility] Last Admin: 09/20/16 08:33 Dose: 1 ea Nystatin (Mycostatin Oint) 1 applic TOP TID [facility] Last Admin: 09/20/16 18:06 Dose: 1 applic Ondansetron HCl (Zofran Inj) 4 mg IVP Q6 PRN PRN Reason: Nausea/Vomiting Last Admin: 09/19/16 10:26 Dose: 4 mg Pantoprazole Sodium (Protonix Ec Tab) 40 mg PO DAILY [facility] Last Admin: 09/20/16 08:18 Dose: 40 mg Sevelamer HCl (Renagel) 1,600 mg PO TID [facility] Last Admin: 09/20/16 18:01 Dose: 1,600 mg Topiramate (Topamax) 50 mg PO BID [facility] Last Admin: 09/20/16 18:04 Dose: 50 mg Vitamin B Complex/Vit C/Folic Acid (Nephro-Ajay) 1 tab PO DAILY [facility] Last Admin: 09/20/16 08:16 Dose: 1 tab - Labs Labs: 09/20/16 14:50 09/20/16 14:50 PT 16.5 SECONDS (9.6-11.2) H 08/28/16 16:11 INR 1.59 (0.92-1.08) H 08/28/16 16:11 APTT 38.7 SECONDS (23.3-32.5) H 08/28/16 16:11 Assessment and Plan (1) Diabetes Status: Chronic (2) ESRD (end stage renal disease) Status: Chronic (3) Cellulitis of leg Status: Acute (4) Hyperlipidemia Status: Chronic (5) Back pain Status: Acute (6) Bacteremia due to Gram-negative bacteria Status: Acute (7) Diabetes mellitus type 2 with peripheral artery disease Status: Acute (8) PVD (peripheral vascular disease) Status: Acute
[2016-09-21] MEDS: guaiFENesin-Codeine 100-10mg/5ml Syrup (5 ml) UD PO PRN ×2 (04:24→13:50)
[2016-09-21] MEDS: Meropenem 500 MG in Sodium Chloride 0.9% 100 ML IVPB SCH (08:02)
[2016-09-21] MEDS: Linezolid 600 mg in D5W 300 ml 600 MG/300 ML BAG IVPB SCH ×2 (08:04→22:00)
[2016-09-21] MEDS: Insulin Lispro (humaLOG) 100 Units/ml Inj SC SCH ×3 (08:09→18:22)
[2016-09-21] MEDS: Pantoprazole 40 mg EC Tab PO SCH (09:14)
[2016-09-21] MEDS: Multivitamin Vitamin B Complex (Nephro-Vite) Tab PO SCH (09:14)
[2016-09-21] MEDS: Hydrocortisone 2.5% (Rectal) CREAM PR SCH ×2 (09:15→18:22)
[2016-09-21] MEDS: Nystatin Ointment TOP SCH ×3 (09:15→18:22)
[2016-09-21] MEDS: Lidocaine 5% Patch TD SCH (09:15)
--- NOTE | 2016-09-21 10:27 | CP.PCM.PN ---
Subjective - Date & Time of Evaluation Date of Evaluation: 09/21/16 Time of Evaluation: 10:15 - Subjective Subjective: Had (??) chills and severe Rt leg pain during transition back to bed from sitting OOB in the AM Was tachycardic, tachypnoic ( finally had a temp of 100 degrees last night) EKG during this episode was identical to EKG tracings of August 28 No AMI here Tolerated HD well Had a comfortable night Was sleeping this AM when I came to see her Has eaten her breakfast Afebrile HR 90 BPM reg BP 108/70 mm Hg No rales, no gallop Continue present Rx Objective - Vital Signs/Intake and Output Vital Signs (last 24 hours): Temp Pulse Resp BP Pulse Ox 98.3 F 87 20 108/66 99 09/21/16 07:51 09/21/16 07:51 09/21/16 07:51 09/21/16 07:51 09/21/16 07:51 - Medications Medications: Current Medications Acetaminophen (Tylenol 325mg Tab) 650 mg PO Q4 PRN PRN Reason: Fever >100.4 F Last Admin: 09/16/16 17:51 Dose: 650 mg Acetaminophen (Tylenol 325mg Tab) 650 mg PO Q4 PRN PRN Reason: Pain, moderate (4-7) Last Admin: 09/16/16 22:34 Dose: 650 mg Albuterol Sulfate (Albuterol 0.083% Inhal Barbie (2.5 Mg/3 Ml) Ud) 2.5 mg INH RQ4 PRN PRN Reason: Shortness of Breath Albuterol/Ipratropium (Duoneb 3 Mg/0.5 Mg (3 Ml) Ud) 3 ml INH RQ4 PRN PRN Reason: Shortness of Breath Apixaban (Eliquis) 5 mg PO BID [facility] PRN Reason: Protocol Last Admin: 09/21/16 09:14 Dose: 5 mg Aspirin (Ecotrin) 81 mg PO DAILY [facility] Last Admin: 09/21/16 09:14 Dose: 81 mg Atorvastatin Calcium (Lipitor) 40 mg PO DAILY [facility] Last Admin: 09/21/16 09:14 Dose: 40 mg Benzonatate (Tessalon Perles) 200 mg PO TID PRN PRN Reason: Cough Last Admin: 09/20/16 08:16 Dose: 200 mg Cinacalcet (Sensipar) 30 mg PO DAILY [facility] Last Admin: 09/21/16 09:13 Dose: 30 mg Epoetin Tha (Procrit) 20,000 unit IV MWF [facility] Last Admin: 09/20/16 15:50 Dose: 20,000 unit Ergocalciferol (Drisdol 50,000 Intl Units Cap) 1 cap PO Q7D [facility] Stop: 11/06/16 11:16 Last Admin: 09/18/16 14:34 Dose: 1 cap Fluconazole (Diflucan) 100 mg PO DAILY [facility] Last Admin: 09/21/16 09:14 Dose: 100 mg Guaifenesin/Codeine Phosphate (Robitussin W/Codeine) 10 ml PO Q6 PRN PRN Reason: Cough Last Admin: 09/21/16 04:24 Dose: 10 ml Hydrocortisone (Anusol-Hc) 1 applic [place] BID [facility] Last Admin: 09/21/16 09:15 Dose: 1 applic Hydromorphone HCl (Dilaudid) 2 mg PO Q6 PRN PRN Reason: Pain, severe (8-10) Last Admin: 09/20/16 15:25 Dose: 2 mg Meropenem 500 mg/ Sodium (Chloride) 100 mls @ 100 mls/hr IVPB DAILY [facility] Last Admin: 09/21/16 08:02 Dose: 100 mls/hr Amikacin Sulfate 250 mg/ (Sodium Chloride) 101 mls @ 100.609 mls/hr IVPB MWF [facility] Last Admin: 09/20/16 09:02 Dose: 100.609 mls/hr Piperacillin Sod/Tazobactam (Sod 2.25 gm/ Sodium Chloride) 100 mls @ 100 mls/ hr IVPB Q12 [facility] Last Admin: 09/21/16 08:03 Dose: 100 mls/hr Linezolid (Zyvox 600mg/300ml D5w) 600 mg in 300 mls @ 300 mls/hr IVPB Q12 [facility] Last Admin: 09/21/16 08:04 Dose: 300 mls/hr Insulin Detemir (Levemir) 30 units SC HS [facility] Last Admin: 09/20/16 22:08 Dose: 30 units Insulin Human Lispro (Humalog) 8 units SC AC [facility] Last Admin: 09/21/16 08:09 Dose: 8 units Lidocaine (Lidoderm) 1 ea TD DAILY [facility] Last Admin: 09/21/16 09:15 Dose: 1 ea Nystatin (Mycostatin Oint) 1 applic TOP TID [facility] Last Admin: 09/21/16 09:15 Dose: 1 applic Ondansetron HCl (Zofran Inj) 4 mg IVP Q6 PRN PRN Reason: Nausea/Vomiting Last Admin: 09/19/16 10:26 Dose: 4 mg Pantoprazole Sodium (Protonix Ec Tab) 40 mg PO DAILY [facility] Last Admin: 09/21/16 09:14 Dose: 40 mg Sevelamer HCl (Renagel) 1,600 mg PO TID [facility] Last Admin: 09/21/16 09:13 Dose: 1,600 mg Topiramate (Topamax) 50 mg PO BID [facility] Last Admin: 09/21/16 09:14 Dose: 50 mg Vitamin B Complex/Vit C/Folic Acid (Nephro-Ajay) 1 tab PO DAILY [facility] Last Admin: 09/21/16 09:14 Dose: 1 tab - Labs Labs: 09/20/16 14:50 09/20/16 14:50 PT 16.5 SECONDS (9.6-11.2) H 08/28/16 16:11 INR 1.59 (0.92-1.08) H 08/28/16 16:11 APTT 38.7 SECONDS (23.3-32.5) H 08/28/16 16:11
--- NOTE | 2016-09-21 11:07 | RAD ---
HISTORY: Tachycardia, decreased oxygen sat. COMPARISON: No prior. FINDINGS: LUNGS: Bilateral interstitial changes. PLEURA: No significant pleural effusion identified, no pneumothorax apparent. CARDIOVASCULAR: Normal. OSSEOUS STRUCTURES: No significant abnormalities. VISUALIZED UPPER ABDOMEN: Normal. OTHER FINDINGS: Right Port-A-Cath in place. IMPRESSION: Bilateral interstitial changes. Right Port-A-Cath in place.
--- NOTE | 2016-09-21 12:57 | CP.PCM.PN ---
<GarethJuandoris - Last Filed: 09/21/16 12:49> Subjective - Date & Time of Evaluation Date of Evaluation: 09/21/16 Time of Evaluation: 08:50 - Subjective Subjective: 46 year old female seen at bedside regarding heel eschar and resolving leg cellulits. Pt seen resting comfortably in bed at time of visit. Patient states that yesterday during physical therapy while transitioning from bed, an act which required maximum assistance, she has sever pain and discomfort from the lift harness. Also while performing reps with platform walker she suffered severe right leg pain which required Dilaudid to control. Reports feeling slightly feverish overnight thou that has passed. Patient reports no resting right leg pain pain in her right foot and ankle this morning, but pain is present on passive movement. She denies recent f/n/v/c/sob/ cp at this time. Objective - Vital Signs/Intake and Output Vital Signs (last 24 hours): Temp Pulse Resp BP Pulse Ox 98.3 F 87 20 108/66 99 09/21/16 07:51 09/21/16 07:51 09/21/16 07:51 09/21/16 07:51 09/21/16 07:51 - Medications Medications: Current Medications Acetaminophen (Tylenol 325mg Tab) 650 mg PO Q4 PRN PRN Reason: Fever >100.4 F Last Admin: 09/16/16 17:51 Dose: 650 mg Acetaminophen (Tylenol 325mg Tab) 650 mg PO Q4 PRN PRN Reason: Pain, moderate (4-7) Last Admin: 09/16/16 22:34 Dose: 650 mg Albuterol Sulfate (Albuterol 0.083% Inhal Barbie (2.5 Mg/3 Ml) Ud) 2.5 mg INH RQ4 PRN PRN Reason: Shortness of Breath Albuterol/Ipratropium (Duoneb 3 Mg/0.5 Mg (3 Ml) Ud) 3 ml INH RQ4 PRN PRN Reason: Shortness of Breath Apixaban (Eliquis) 5 mg PO BID [facility] PRN Reason: Protocol Last Admin: 09/21/16 09:14 Dose: 5 mg Aspirin (Ecotrin) 81 mg PO DAILY [facility] Last Admin: 09/21/16 09:14 Dose: 81 mg Atorvastatin Calcium (Lipitor) 40 mg PO DAILY [facility] Last Admin: 09/21/16 09:14 Dose: 40 mg Benzonatate (Tessalon Perles) 200 mg PO TID PRN PRN Reason: Cough Last Admin: 09/20/16 08:16 Dose: 200 mg Cinacalcet (Sensipar) 30 mg PO DAILY [facility] Last Admin: 09/21/16 09:13 Dose: 30 mg Epoetin Tha (Procrit) [facility] Last Admin: 09/20/16 15:50 Dose: 20,000 unit Ergocalciferol (Drisdol 50,000 Intl Units Cap) 1 cap PO Q7D [facility] Stop: 11/06/16 11:16 Last Admin: 09/18/16 14:34 Dose: 1 cap Fluconazole (Diflucan) 100 mg PO DAILY [facility] Last Admin: 09/21/16 09:14 Dose: 100 mg Guaifenesin/Codeine Phosphate (Robitussin W/Codeine) 10 ml PO Q6 PRN PRN Reason: Cough Last Admin: 09/21/16 04:24 Dose: 10 ml Hydrocortisone (Anusol-Hc) 1 applic SC BID [facility] Last Admin: 09/21/16 09:15 Dose: 1 applic Hydromorphone HCl (Dilaudid) 2 mg PO Q6 PRN PRN Reason: Pain, severe (8-10) Last Admin: 09/20/16 15:25 Dose: 2 mg Meropenem 500 mg/ Sodium (Chloride) 100 mls @ 100 mls/hr IVPB DAILY [facility] Last Admin: 09/21/16 08:02 Dose: 100 mls/hr Amikacin Sulfate 250 mg/ (Sodium Chloride) 101 mls @ 100.609 mls/hr IVPB MWF [facility] Last Admin: 09/20/16 09:02 Dose: 100.609 mls/hr Piperacillin Sod/Tazobactam (Sod 2.25 gm/ Sodium Chloride) 100 mls @ 100 mls/ hr IVPB Q12 [facility] Last Admin: 09/21/16 08:03 Dose: 100 mls/hr Linezolid (Zyvox 600mg/300ml D5w) 600 mg in 300 mls @ 300 mls/hr IVPB Q12 [facility] Last Admin: 09/21/16 08:04 Dose: 300 mls/hr Insulin Detemir (Levemir) 30 units SC HS [facility] Last Admin: 09/20/16 22:08 Dose: 30 units Insulin Human Lispro (Humalog) 8 units SC AC [facility] Last Admin: 09/21/16 12:47 Dose: 8 units Lidocaine (Lidoderm) 1 ea TD DAILY [facility] Last Admin: 09/21/16 09:15 Dose: 1 ea Nystatin (Mycostatin Oint) 1 applic TOP TID [facility] Last Admin: 09/21/16 12:48 Dose: 1 applic Ondansetron HCl (Zofran Inj) 4 mg IVP Q6 PRN PRN Reason: Nausea/Vomiting Last Admin: 09/19/16 10:26 Dose: 4 mg Pantoprazole Sodium (Protonix Ec Tab) 40 mg PO DAILY [facility] Last Admin: 09/21/16 09:14 Dose: 40 mg Sevelamer HCl (Renagel) 1,600 mg PO TID [facility] Last Admin: 09/21/16 12:48 Dose: 1,600 mg Topiramate (Topamax) 50 mg PO BID [facility] Last Admin: 09/21/16 09:14 Dose: 50 mg Vitamin B Complex/Vit C/Folic Acid (Nephro-Ajay) 1 tab PO DAILY [facility] Last Admin: 09/21/16 09:14 Dose: 1 tab - Labs Labs: 09/20/16 14:50 09/20/16 14:50 PT 16.5 SECONDS (9.6-11.2) H 08/28/16 16:11 INR 1.59 (0.92-1.08) H 08/28/16 16:11 APTT 38.7 SECONDS (23.3-32.5) H 08/28/16 16:11 - Constitutional Appears: Non-toxic, No Acute Distress, Chronically Ill - Extremities Exam Additional comments: Right lower extremity focused exam: VASC- DP and PT pulses non-palpable, capillary refill < 5 sec to digits, Mild edema noted to anterior aspect of leg and dorsum of foot, signs decreased, edema with near full return of relaxed skin tension lines. Minor leg callor present, absent erythema. NEURO-Gross pedal sensation is diminished DERM- Superficial dry eschar noted to plantar aspect of heel, with noted sanguinous crust along periphery. Peeling of proximal 1/5th of eschar margin reveals fibrogranular tissue bed absent purulence or mal-odor, with sanguinous exudate. Moderate increased warmth noted to distal leg and ankle. No local or ascending erythema, no acute signs infection. Eschar itself continues softeningand is absent fluctuance. ORTHO- No tenderness along palpation of muscle belly course of gastrocnemius, peroneals. Tnedreness noted along distal ankle level course of tibialis anterior muscles and along achilles tendon. Tenderness noted to lateral aspect of ankle, at apex of varus deformity. Severe varus deformity with dislocation of ankle noted. - Neurological Exam Neurological Exam: Alert, Awake, Oriented x3 - Psychiatric Exam Psychiatric exam: Normal Affect, Normal Mood Assessment and Plan - Assessment and Plan (Free Text) Assessment: 46 yo female patient w/ pmhx of HTN, ESRD (on dialysis), coagulopathy, DM, charcot right foot PVD w/ stable dry eschar of right heel, symotomatic myositis Plan: Patient evaluated and treated. Discussed in detail with attending. Medical provider, consulting service physician notes, & Physical therapy evaluation reviewed. Dr. Gordon made aware of all pertinent changes and findings. Chart, labs, vitals reviewed;afebrile, WBC 10.8 (09/20/16) trending down. -Dressing change with wet to dry sterile gauze, and DSD. Multipodus boot to be worn at all times while in bed continue IV abx per ID Podiatry will continue to follow patient while in house <Cyrus Gordon - Last Filed: 09/22/16 09:50> Objective - Vital Signs/Intake and Output Vital Signs (last 24 hours): Temp Pulse Resp BP Pulse Ox 98 F 109 H 18 125/71 93 L 09/22/16 08:19 09/22/16 08:19 09/22/16 08:19 09/22/16 08:19 09/22/16 08:19 Intake and Output: 09/22/16 09/22/16 06:59 18:59 Intake Total 400 Balance 400 - Medications Medications: Current Medications Acetaminophen (Tylenol 325mg Tab) 650 mg PO Q4 PRN PRN Reason: Fever >100.4 F Last Admin: 09/16/16 17:51 Dose: 650 mg Acetaminophen (Tylenol 325mg Tab) 650 mg PO Q4 PRN PRN Reason: Pain, moderate (4-7) Last Admin: 09/16/16 22:34 Dose: 650 mg Albuterol Sulfate (Albuterol 0.083% Inhal Barbie (2.5 Mg/3 Ml) Ud) 2.5 mg INH RQ4 PRN PRN Reason: Shortness of Breath Albuterol/Ipratropium (Duoneb 3 Mg/0.5 Mg (3 Ml) Ud) 3 ml INH RQ4 PRN PRN Reason: Shortness of Breath Apixaban (Eliquis) 5 mg PO BID [facility] PRN Reason: Protocol Last Admin: 09/22/16 08:37 Dose: 5 mg Aspirin (Ecotrin) 81 mg PO DAILY [facility] Last Admin: 09/22/16 08:37 Dose: 81 mg Atorvastatin Calcium (Lipitor) 40 mg PO DAILY [facility] Last Admin: 09/22/16 08:38 Dose: 40 mg Benzonatate (Tessalon Perles) 200 mg PO TID PRN PRN Reason: Cough Last Admin: 09/20/16 08:16 Dose: 200 mg Cinacalcet (Sensipar) 30 mg PO DAILY [facility] Last Admin: 09/22/16 08:41 Dose: 30 mg Epoetin Tha (Procrit) 20,000 unit IV MWF [facility] Last Admin: 09/20/16 15:50 Dose: 20,000 unit Ergocalciferol (Drisdol 50,000 Intl Units Cap) 1 cap PO Q7D [facility] Stop: 11/06/16 11:16 Last Admin: 09/18/16 14:34 Dose: 1 cap Fluconazole (Diflucan) 100 mg PO DAILY [facility] Last Admin: 09/22/16 08:36 Dose: 100 mg Guaifenesin/Codeine Phosphate (Robitussin W/Codeine) 10 ml PO Q6 PRN PRN Reason: Cough Last Admin: 09/21/16 13:50 Dose: 10 ml Hydrocortisone (Anusol-Hc) 1 applic SC BID [facility] Last Admin: 09/22/16 08:35 Dose: 1 applic Hydromorphone HCl (Dilaudid) 2 mg PO Q6 PRN PRN Reason: Pain, severe (8-10) Last Admin: 09/21/16 20:57 Dose: 2 mg Meropenem 500 mg/ Sodium (Chloride) 100 mls @ 100 mls/hr IVPB DAILY [facility] Last Admin: 09/22/16 08:39 Dose: 100 mls/hr Amikacin Sulfate 250 mg/ (Sodium Chloride) 101 mls @ 100.609 mls/hr IVPB MWF [facility] Last Admin: 09/20/16 09:02 Dose: 100.609 mls/hr Piperacillin Sod/Tazobactam (Sod 2.25 gm/ Sodium Chloride) 100 mls @ 100 mls/ hr IVPB Q12 [facility] Last Admin: 09/22/16 08:41 Dose: 100 mls/hr Linezolid (Zyvox 600mg/300ml D5w) 600 mg in 300 mls @ 300 mls/hr IVPB Q12 [facility] Last Admin: 09/22/16 08:43 Dose: 300 mls/hr Insulin Detemir (Levemir) 30 units SC HS [facility] Last Admin: 09/21/16 23:00 Dose: 30 units Insulin Human Lispro (Humalog) 8 units SC AC [facility] Last Admin: 09/22/16 08:38 Dose: 8 units Lidocaine (Lidoderm) 1 ea TD DAILY [facility] Last Admin: 09/22/16 08:38 Dose: 1 ea Nystatin (Mycostatin Oint) 1 applic TOP TID [facility] Last Admin: 09/22/16 08:40 Dose: 1 applic Ondansetron HCl (Zofran Inj) 4 mg IVP Q6 PRN PRN Reason: Nausea/Vomiting Last Admin: 09/19/16 10:26 Dose: 4 mg Pantoprazole Sodium (Protonix Ec Tab) 40 mg PO DAILY [facility] Last Admin: 09/22/16 08:40 Dose: 40 mg Sevelamer HCl (Renagel) 1,600 mg PO TID [facility] Last Admin: 09/22/16 08:40 Dose: 1,600 mg Topiramate (Topamax) 50 mg PO BID [facility] Last Admin: 09/22/16 08:41 Dose: 50 mg Vitamin B Complex/Vit C/Folic Acid (Nephro-Ajay) 1 tab PO DAILY [facility] Last Admin: 09/22/16 08:40 Dose: 1 tab - Labs Labs: 09/20/16 14:50 09/20/16 14:50 PT 16.5 SECONDS (9.6-11.2) H 08/28/16 16:11 INR 1.59 (0.92-1.08) H 08/28/16 16:11 APTT 38.7 SECONDS (23.3-32.5) H 08/28/16 16:11 Assessment and Plan - Assessment and Plan (Free Text) Plan: After reviewing Medicine note, I do understand her continued issue in regards to Ms Leo leg status. While we both are quite concerned about the health and quality of life this patient has. It simply comes down to what Ms Leo wants. However I am requesting that Dr Elijah Bonilla be called in as a second podiatric consult. He is also a member of the wound care center and highly respected. His input and prospective would be greatly appreciated.
--- NOTE | 2016-09-21 16:18 | CP.PCM.PN ---
Subjective - Date & Time of Evaluation Date of Evaluation: 09/21/16 Time of Evaluation: 16:09 - Subjective Subjective: Patient had severe right ankle - lower leg pain yesterday along with shaking chills. See yesterday's progress note. Blood was sent to lab for aerobic, anaerobic, and fungal cultures. last night the patient had fever to 100.4 and then 99.4. This morning she had an episode of hypotension with Bp 80/40. This corrected with fluids and breakfast. R lower leg is still swollen and painful. Still has some cough. CXR read as increased interstitial markings. Discussed with Dr. Lemon. Will continue current iv antibiotics while awaiting blood culture. This is not a stable dry eschar. This is not resolving cellulitis. Call it myositis - call it osteomyelitis - whatever the problem may be it is not resolving. In fact, it is getting worse. Objective - Vital Signs/Intake and Output Vital Signs (last 24 hours): Temp Pulse Resp BP Pulse Ox 98.3 F 87 20 108/66 99 09/21/16 07:51 09/21/16 07:51 09/21/16 07:51 09/21/16 07:51 09/21/16 07:51 - Medications Medications: Current Medications Acetaminophen (Tylenol 325mg Tab) 650 mg PO Q4 PRN PRN Reason: Fever >100.4 F Last Admin: 09/16/16 17:51 Dose: 650 mg Acetaminophen (Tylenol 325mg Tab) 650 mg PO Q4 PRN PRN Reason: Pain, moderate (4-7) Last Admin: 09/16/16 22:34 Dose: 650 mg Albuterol Sulfate (Albuterol 0.083% Inhal Barbie (2.5 Mg/3 Ml) Ud) 2.5 mg INH RQ4 PRN PRN Reason: Shortness of Breath Albuterol/Ipratropium (Duoneb 3 Mg/0.5 Mg (3 Ml) Ud) 3 ml INH RQ4 PRN PRN Reason: Shortness of Breath Apixaban (Eliquis) 5 mg PO BID [facility] PRN Reason: Protocol Last Admin: 09/21/16 09:14 Dose: 5 mg Aspirin (Ecotrin) 81 mg PO DAILY [facility] Last Admin: 09/21/16 09:14 Dose: 81 mg Atorvastatin Calcium (Lipitor) 40 mg PO DAILY [facility] Last Admin: 05/13/17 09:14 Dose: 40 mg Benzonatate (Tessalon Perles) 200 mg PO TID PRN PRN Reason: Cough Last Admin: 09/20/16 08:16 Dose: 200 mg Cinacalcet (Sensipar) 30 mg PO DAILY [facility] Last Admin: 09/21/16 09:13 Dose: 30 mg Epoetin Tha (Procrit) 20,000 unit IV MWF [facility] Last Admin: 09/20/16 15:50 Dose: 20,000 unit Ergocalciferol (Drisdol 50,000 Intl Units Cap) 1 cap PO Q7D [facility] Stop: 11/06/16 11:16 Last Admin: 09/18/16 14:34 Dose: 1 cap Fluconazole (Diflucan) 100 mg PO DAILY [facility] Last Admin: 09/21/16 09:14 Dose: 100 mg Guaifenesin/Codeine Phosphate (Robitussin W/Codeine) 10 ml PO Q6 PRN PRN Reason: Cough Last Admin: 09/21/16 13:50 Dose: 10 ml Hydrocortisone (Anusol-Hc) 1 applic NE BID [facility] Last Admin: 09/21/16 09:15 Dose: 1 applic Hydromorphone HCl (Dilaudid) 2 mg PO Q6 PRN PRN Reason: Pain, severe (8-10) Last Admin: 09/20/16 15:25 Dose: 2 mg Meropenem 500 mg/ Sodium (Chloride) 100 mls @ 100 mls/hr IVPB DAILY [facility] Last Admin: 09/21/16 08:02 Dose: 100 mls/hr Amikacin Sulfate 250 mg/ (Sodium Chloride) 101 mls @ 100.609 mls/hr IVPB MWF [facility] Last Admin: 09/20/16 09:02 Dose: 100.609 mls/hr Piperacillin Sod/Tazobactam (Sod 2.25 gm/ Sodium Chloride) 100 mls @ 100 mls/ hr IVPB Q12 [facility] Last Admin: 09/21/16 08:03 Dose: 100 mls/hr Linezolid (Zyvox 600mg/300ml D5w) 600 mg in 300 mls @ 300 mls/hr IVPB Q12 [facility] Last Admin: 09/21/16 08:04 Dose: 300 mls/hr Insulin Detemir (Levemir) 30 units SC HS [facility] Last Admin: 09/20/16 22:08 Dose: 30 units Insulin Human Lispro (Humalog) 8 units SC AC [facility] Last Admin: 09/21/16 12:47 Dose: 8 units Lidocaine (Lidoderm) 1 ea TD DAILY [facility] Last Admin: 09/21/16 09:15 Dose: 1 ea Nystatin (Mycostatin Oint) 1 applic TOP TID [facility] Last Admin: 09/21/16 12:48 Dose: 1 applic Ondansetron HCl (Zofran Inj) 4 mg IVP Q6 PRN PRN Reason: Nausea/Vomiting Last Admin: 09/19/16 10:26 Dose: 4 mg Pantoprazole Sodium (Protonix Ec Tab) 40 mg PO DAILY [facility] Last Admin: 09/21/16 09:14 Dose: 40 mg Sevelamer HCl (Renagel) 1,600 mg PO TID [facility] Last Admin: 09/21/16 12:48 Dose: 1,600 mg Topiramate (Topamax) 50 mg PO BID [facility] Last Admin: 09/21/16 09:14 Dose: 50 mg Vitamin B Complex/Vit C/Folic Acid (Nephro-Ajay) 1 tab PO DAILY [facility] Last Admin: 09/21/16 09:14 Dose: 1 tab - Labs Labs: 09/20/16 14:50 09/20/16 14:50 PT 16.5 SECONDS (9.6-11.2) H 08/28/16 16:11 INR 1.59 (0.92-1.08) H 08/28/16 16:11 APTT 38.7 SECONDS (23.3-32.5) H 08/28/16 16:11 - Constitutional Appears: Other (Mildly distressed.) - Head Exam Head Exam: NORMAL INSPECTION - ENT Exam ENT Exam: Mucous Membranes Moist - Neck Exam Neck Exam: Normal Inspection - Respiratory Exam Respiratory Exam: Clear to Ausculation Bilateral, NORMAL BREATHING PATTERN - Cardiovascular Exam Cardiovascular Exam: REGULAR RHYTHM - GI/Abdominal Exam GI & Abdominal Exam: Soft, Normal Bowel Sounds - Extremities Exam Additional comments: Right lower leg is swollen, hot, and tender. - Back Exam Back Exam: NORMAL INSPECTION - Neurological Exam Neurological Exam: Alert, Awake, CN II-XII Intact, Oriented x3 - Psychiatric Exam Psychiatric exam: Normal Affect, Normal Mood - Skin Additional comments: Dressings in place buttock and beneath beasts. Assessment and Plan (1) Osteomyelitis of ankle or foot Assessment & Plan: SEE SUBJECTIVE Status: Acute (2) ESRD (end stage renal disease) on dialysis Status: Chronic (3) DM type 2 (diabetes mellitus, type 2) Status: Chronic (4) Coagulopathy Status: Chronic (5) Peripheral arterial occlusive disease Assessment & Plan: FOR A PATIENT WITH DIABETES, SEVERE PERIPHERAL ARTERIAL DISEASE AND OSTEOMYELITIS, THE ONLY CURE IS AMPUTATION. THERE ARE SOME PATIENTS WHO CAN GO FOR YEARS ON ORAL MEDICATIONS FOR CHRONIC OSTEOMYELITIS, BUT THIS PATIENT DOES NOT APPEAR TO BE ONE OF THEM. Status: Chronic (6) Pneumonia Status: Acute (7) Decubitus ulcer of buttock, stage 2 Status: Acute
--- NOTE | 2016-09-21 19:10 | PN ---
DATE: 09/21/2016 ROOM: 660. This is a 46-year-old female with recent uncontrolled type 2 insulin-requiring diabetes, now being fo llowed closely for metabolic management. Her glycemic levels are fluctuating, but improved as noted and the glucose values have ranged from 158-162 mg/dL. Her latest chemistries include a BUN of 41, s odium 137, potassium 4.1, chloride 97, CO2 26, glucose 158 and creatinine 7.1. So, at this time, maeve l continue the same basal and bolus insulin regimen as given with Humalog given as 8 units subQ t.i.d . before meals as ordered. Will continue the Levemir given as 30 units subQ at bedtime daily as give n. Will also continue the serial chemistries to be obtained and will supplement accordingly as edenilson lange. She has ongoing IV antibiotic management for persistent right heel osteomyelitis and cellulitis a nd an underlying nonhealing neuropathic diabetic foot ulceration as mentioned. She continues to have lower extremity painful paresthesias as noted, as her left lower extremity continues to be tender an d erythematosus as noted. Concur with the present medical management as given. Irene Ambrose MD cc: [id number] TT: 09/21/2016 19:09:10 Confirmation # [id number] Dictation # [id number] amalia
[2016-09-21] MEDS: Insulin Detemir 100 Units/ml Inj SC SCH (23:00)
--- NOTE | 2016-09-21 23:29 | CP.PCM.PN ---
Subjective - Date & Time of Evaluation Date of Evaluation: 09/21/16 Time of Evaluation: 20:30 - Subjective Subjective: No seizures, no syncope were reported. She only had a spell of right ankle pain last night with low fever 100.4 She is suffering from cellulitis of the Right Lower Extremity peripherally vs Osteomyelitis. She is unable to stand on the right foot. She has PVD. Objective - Vital Signs/Intake and Output Vital Signs (last 24 hours): Temp Pulse Resp BP Pulse Ox 98.6 F 99 H 20 112/66 97 09/21/16 17:00 09/21/16 17:00 09/21/16 17:00 09/21/16 17:00 09/21/16 17:00 - Medications Medications: Current Medications Acetaminophen (Tylenol 325mg Tab) 650 mg PO Q4 PRN PRN Reason: Fever >100.4 F Last Admin: 09/16/16 17:51 Dose: 650 mg Acetaminophen (Tylenol 325mg Tab) 650 mg PO Q4 PRN PRN Reason: Pain, moderate (4-7) Last Admin: 09/16/16 22:34 Dose: 650 mg Albuterol Sulfate (Albuterol 0.083% Inhal Barbie (2.5 Mg/3 Ml) Ud) 2.5 mg INH RQ4 PRN PRN Reason: Shortness of Breath Albuterol/Ipratropium (Duoneb 3 Mg/0.5 Mg (3 Ml) Ud) 3 ml INH RQ4 PRN PRN Reason: Shortness of Breath Apixaban (Eliquis) 5 mg PO BID [facility] PRN Reason: Protocol Last Admin: 09/21/16 18:21 Dose: 5 mg Aspirin (Ecotrin) 81 mg PO DAILY [facility] Last Admin: 09/21/16 09:14 Dose: 81 mg Atorvastatin Calcium (Lipitor) 40 mg PO DAILY [facility] Last Admin: 09/21/16 09:14 Dose: 40 mg Benzonatate (Tessalon Perles) 200 mg PO TID PRN PRN Reason: Cough Last Admin: 09/20/16 08:16 Dose: 200 mg Cinacalcet (Sensipar) 30 mg PO DAILY [facility] Last Admin: 09/21/16 09:13 Dose: 30 mg Epoetin Tha (Procrit) 20,000 unit IV MWF [facility] Last Admin: 09/20/16 15:50 Dose: 20,000 unit Ergocalciferol (Drisdol 50,000 Intl Units Cap) 1 cap PO Q7D [facility] Stop: 11/06/16 11:16 Last Admin: 09/18/16 14:34 Dose: 1 cap Fluconazole (Diflucan) 100 mg PO DAILY [facility] Last Admin: 09/21/16 09:14 Dose: 100 mg Guaifenesin/Codeine Phosphate (Robitussin W/Codeine) 10 ml PO Q6 PRN PRN Reason: Cough Last Admin: 09/21/16 13:50 Dose: 10 ml Hydrocortisone (Anusol-Hc) 1 applic MA BID [facility] Last Admin: 09/21/16 18:22 Dose: 1 applic Hydromorphone HCl (Dilaudid) 2 mg PO Q6 PRN PRN Reason: Pain, severe (8-10) Last Admin: 09/21/16 20:57 Dose: 2 mg Meropenem 500 mg/ Sodium (Chloride) 100 mls @ 100 mls/hr IVPB DAILY [facility] Last Admin: 09/21/16 08:02 Dose: 100 mls/hr Amikacin Sulfate 250 mg/ (Sodium Chloride) 101 mls @ 100.609 mls/hr IVPB MWF [facility] Last Admin: 09/20/16 09:02 Dose: 100.609 mls/hr Piperacillin Sod/Tazobactam (Sod 2.25 gm/ Sodium Chloride) 100 mls @ 100 mls/ hr IVPB Q12 [facility] Last Admin: 09/21/16 20:43 Dose: 100 mls/hr Linezolid (Zyvox 600mg/300ml D5w) 600 mg in 300 mls @ 300 mls/hr IVPB Q12 [facility] Last Admin: 09/21/16 22:00 Dose: 300 mls/hr Insulin Detemir (Levemir) 30 units SC HS [facility] Last Admin: 09/20/16 22:08 Dose: 30 units Insulin Human Lispro (Humalog) 8 units SC AC [facility] Last Admin: 09/21/16 18:22 Dose: 8 units Lidocaine (Lidoderm) 1 ea TD DAILY [facility] Last Admin: 09/21/16 09:15 Dose: 1 ea Nystatin (Mycostatin Oint) 1 applic TOP TID [facility] Last Admin: 09/21/16 18:22 Dose: 1 applic Ondansetron HCl (Zofran Inj) 4 mg IVP Q6 PRN PRN Reason: Nausea/Vomiting Last Admin: 09/19/16 10:26 Dose: 4 mg Pantoprazole Sodium (Protonix Ec Tab) 40 mg PO DAILY [facility] Last Admin: 09/21/16 09:14 Dose: 40 mg Sevelamer HCl (Renagel) 1,600 mg PO TID [facility] Last Admin: 09/21/16 18:21 Dose: 1,600 mg Topiramate (Topamax) 50 mg PO BID [facility] Last Admin: 09/21/16 18:21 Dose: 50 mg Vitamin B Complex/Vit C/Folic Acid (Nephro-Ajay) 1 tab PO DAILY [facility] Last Admin: 09/21/16 09:14 Dose: 1 tab - Labs Labs: 09/20/16 14:50 09/20/16 14:50 PT 16.5 SECONDS (9.6-11.2) H 08/28/16 16:11 INR 1.59 (0.92-1.08) H 08/28/16 16:11 APTT 38.7 SECONDS (23.3-32.5) H 08/28/16 16:11 Assessment and Plan (1) Diabetes Status: Chronic (2) ESRD (end stage renal disease) Status: Chronic (3) Cellulitis of leg Status: Acute (4) Hyperlipidemia Status: Chronic (5) Back pain Status: Acute (6) Bacteremia due to Gram-negative bacteria Status: Acute (7) Diabetes mellitus type 2 with peripheral artery disease Status: Acute (8) PVD (peripheral vascular disease) Status: Acute
--- NOTE | 2016-09-22 08:25 | CP.PCM.PN ---
<Tabatha Servin - Last Filed: 09/22/16 16:01> Subjective - Date & Time of Evaluation Date of Evaluation: 09/22/16 Time of Evaluation: 09:11 - Subjective Subjective: 46 year old female seen at bedside regarding heel eschar and resolving leg cellulits with potential myositis. Pt seen resting comfortably in bed at time of visit. Patient states that she has had no major overnight events. Patient is reports no resting right leg pain pain in her right foot and ankle, or on passive movement. She denies recent f/n/v/c/sob/cp at this time. Objective - Vital Signs/Intake and Output Vital Signs (last 24 hours): Temp Pulse Resp BP Pulse Ox 98 F 109 H 18 125/71 93 L 09/22/16 08:19 09/22/16 08:19 09/22/16 08:19 09/22/16 08:19 09/22/16 08:19 Intake and Output: 09/22/16 09/22/16 06:59 18:59 Intake Total 400 Balance 400 - Medications Medications: Current Medications Acetaminophen (Tylenol 325mg Tab) 650 mg PO Q4 PRN PRN Reason: Fever >100.4 F Last Admin: 09/16/16 17:51 Dose: 650 mg Acetaminophen (Tylenol 325mg Tab) 650 mg PO Q4 PRN PRN Reason: Pain, moderate (4-7) Last Admin: 09/16/16 22:34 Dose: 650 mg Albuterol Sulfate (Albuterol 0.083% Inhal Barbie (2.5 Mg/3 Ml) Ud) 2.5 mg INH RQ4 PRN PRN Reason: Shortness of Breath Albuterol/Ipratropium (Duoneb 3 Mg/0.5 Mg (3 Ml) Ud) 3 ml INH RQ4 PRN PRN Reason: Shortness of Breath Apixaban (Eliquis) 5 mg PO BID [facility] PRN Reason: Protocol Last Admin: 09/21/16 18:21 Dose: 5 mg Aspirin (Ecotrin) 81 mg PO DAILY [facility] Last Admin: 09/21/16 09:14 Dose: 81 mg Atorvastatin Calcium (Lipitor) 40 mg PO DAILY [facility] Last Admin: 09/21/16 09:14 Dose: 40 mg Benzonatate (Tessalon Perles) 200 mg PO TID PRN PRN Reason: Cough Last Admin: 09/20/16 08:16 Dose: 200 mg Cinacalcet (Sensipar) 30 mg PO DAILY [facility] Last Admin: 09/21/16 09:13 Dose: 30 mg Epoetin Tha (Procrit) 20,000 unit IV MWF [facility] Last Admin: 09/20/16 15:50 Dose: 20,000 unit Ergocalciferol (Drisdol 50,000 Intl Units Cap) 1 cap PO Q7D [facility] Stop: 11/06/16 11:16 Last Admin: 09/18/16 14:34 Dose: 1 cap Fluconazole (Diflucan) 100 mg PO DAILY [facility] Last Admin: 09/21/16 09:14 Dose: 100 mg Guaifenesin/Codeine Phosphate (Robitussin W/Codeine) 10 ml PO Q6 PRN PRN Reason: Cough Last Admin: 09/21/16 13:50 Dose: 10 ml Hydrocortisone (Anusol-Hc) 1 applic MS BID [facility] Last Admin: 09/21/16 18:22 Dose: 1 applic Hydromorphone HCl (Dilaudid) 2 mg PO Q6 PRN PRN Reason: Pain, severe (8-10) Last Admin: 09/21/16 20:57 Dose: 2 mg Meropenem 500 mg/ Sodium (Chloride) 100 mls @ 100 mls/hr IVPB DAILY [facility] Last Admin: 09/21/16 08:02 Dose: 100 mls/hr Amikacin Sulfate 250 mg/ (Sodium Chloride) 101 mls @ 100.609 mls/hr IVPB [facility] Last Admin: 09/20/16 09:02 Dose: 100.609 mls/hr Piperacillin Sod/Tazobactam (Sod 2.25 gm/ Sodium Chloride) 100 mls @ 100 mls/ hr IVPB Q12 [facility] Last Admin: 09/21/16 20:43 Dose: 100 mls/hr Linezolid (Zyvox 600mg/300ml D5w) 600 mg in 300 mls @ 300 mls/hr IVPB Q12 [facility] Last Admin: 09/21/16 22:00 Dose: 300 mls/hr Insulin Detemir (Levemir) 30 units SC HS [facility] Last Admin: 09/21/16 23:00 Dose: 30 units Insulin Human Lispro (Humalog) 8 units SC AC [facility] Last Admin: 09/21/16 18:22 Dose: 8 units Lidocaine (Lidoderm) 1 ea TD DAILY [facility] Last Admin: 09/21/16 09:15 Dose: 1 ea Nystatin (Mycostatin Oint) 1 applic TOP TID [facility] Last Admin: 09/21/16 18:22 Dose: 1 applic Ondansetron HCl (Zofran Inj) 4 mg IVP Q6 PRN PRN Reason: Nausea/Vomiting Last Admin: 09/19/16 10:26 Dose: 4 mg Pantoprazole Sodium (Protonix Ec Tab) 40 mg PO DAILY [facility] Last Admin: 09/21/16 09:14 Dose: 40 mg Sevelamer HCl (Renagel) 1,600 mg PO TID [facility] Last Admin: 09/21/16 18:21 Dose: 1,600 mg Topiramate (Topamax) 50 mg PO BID [facility] Last Admin: 09/21/16 18:21 Dose: 50 mg Vitamin B Complex/Vit C/Folic Acid (Nephro-Ajay) 1 tab PO DAILY [facility] Last Admin: 09/21/16 09:14 Dose: 1 tab - Labs Labs: 09/20/16 14:50 09/20/16 14:50 PT 16.5 SECONDS (9.6-11.2) H 08/28/16 16:11 INR 1.59 (0.92-1.08) H 08/28/16 16:11 APTT 38.7 SECONDS (23.3-32.5) H 08/28/16 16:11 - Constitutional Appears: Non-toxic, No Acute Distress, Chronically Ill - Extremities Exam Additional comments: Right lower extremity focused exam: VASC- DP and PT pulses non-palpable, capillary refill < 5 sec to digits, Mild edema noted to anterior aspect of leg and dorsum of foot, signs decreased, edema with near full return of relaxed skin tension lines. Minor leg callor present, absent erythema. NEURO-Gross pedal sensation is diminished DERM- Superficial dry eschar noted to plantar aspect of heel, with noted sanguinous crust along periphery. Peeling of proximal 1/5th of eschar margin reveals fibrogranular tissue bed absent purulence or mal-odor, with sanguinous exudate. Moderate increased warmth noted to distal leg and ankle. No local or ascending erythema, no acute signs infection. Eschar itself continues softeningand is absent fluctuance. ORTHO- No tenderness along palpation of muscle belly course of gastrocnemius, peroneals. Tnedreness noted along distal ankle level course of tibialis anterior muscles and along achilles tendon. Tenderness noted to lateral aspect of ankle, at apex of varus deformity. Severe varus deformity with dislocation of ankle noted. - Neurological Exam Neurological Exam: Alert, Awake, Oriented x3 - Psychiatric Exam Psychiatric exam: Normal Affect, Normal Mood Assessment and Plan - Assessment and Plan (Free Text) Assessment: 46 yo female patient w/ pmhx of HTN, ESRD (on dialysis), coagulopathy, DM, Charcot Arthropathy of Right foot PVD w/ dry eschar of right heel, symotomatic myositis. Plan: Patient evaluated and treated. Discussed in detail with attending. Medical provider, consulting service physician notes, & Physical therapy evaluation reviewed. Dr. Gordon made aware of all pertinent changes and findings. Chart, labs, vitals reviewed; afebrile (24 hour T-max = 98.3), WBC 10.8 () trending down. Review of right lower extremity MRI and WBC labelled triple phase bone, show finding consistent with localized ankle Charcot Neuro-arthropathy of ankle changes particularly kyace-chondral bone changes noted in particular, absent diffuse medullary changes present in OM. Due to potential hindfoot, ankle, and leg resolving cellulits, contamination from bone biopsy likely. Radiological assessment and clinical exam support Charcot changes vs suspected acute or chronic osteomyelitis involving the right lower leg. -X-ray ordered to asses extent/ changes to leg soft tissue swelling. Re-dressing change with wet to dry sterile gauze, and DSD. Multipodus boot to be worn at all times while in bed -Continue IV abx per ID -Goal of physical therapy should be continued re-conditioning with transfer training and leg strengthening. However with ill fitting right leg [place] boot full weight-bearing ambulation contraindicated at this time, until [place] boot can be re-fashioned. Podiatry will continue to follow patient while in house <Cyrus Gordon - Last Filed: 09/25/16 13:43> Subjective - Subjective Subjective: The alaniz for this patient is to have proper fitting [place] walker on right foot. This patient would benefit with a new device Objective - Vital Signs/Intake and Output Vital Signs (last 24 hours): Temp Pulse Resp BP Pulse Ox 98.7 F 102 H 20 102/58 L 98 09/25/16 10:20 09/25/16 07:57 09/25/16 07:57 09/25/16 07:57 09/25/16 07:57 - Medications Medications: Current Medications Acetaminophen (Tylenol 325mg Tab) 650 mg PO Q4 PRN PRN Reason: Fever >100.4 F Last Admin: 09/25/16 09:20 Dose: 650 mg Acetaminophen (Tylenol 325mg Tab) 650 mg PO Q4 PRN PRN Reason: Pain, moderate (4-7) Last Admin: 09/16/16 22:34 Dose: 650 mg Albuterol Sulfate (Albuterol 0.083% Inhal Barbie (2.5 Mg/3 Ml) Ud) 2.5 mg INH RQ4 PRN PRN Reason: Shortness of Breath Albuterol/Ipratropium (Duoneb 3 Mg/0.5 Mg (3 Ml) Ud) 3 ml INH RQ4 PRN PRN Reason: Shortness of Breath Apixaban (Eliquis) 5 mg PO BID [facility] PRN Reason: Protocol Last Admin: 09/25/16 13:25 Dose: 5 mg Aspirin (Ecotrin) 81 mg PO DAILY [facility] Last Admin: 09/25/16 13:22 Dose: 81 mg Atorvastatin Calcium (Lipitor) 40 mg PO DAILY [facility] Last Admin: 09/25/16 13:26 Dose: 40 mg Benzonatate (Tessalon Perles) 200 mg PO TID PRN PRN Reason: Cough Last Admin: 09/20/16 08:16 Dose: 200 mg Cinacalcet (Sensipar) 30 mg PO DAILY [facility] Last Admin: 09/25/16 13:23 Dose: 30 mg Epoetin Tha (Procrit) 20,000 unit IV MWF [facility] Last Admin: 09/25/16 13:22 Dose: 20,000 unit Ergocalciferol (Drisdol 50,000 Intl Units Cap) 1 cap PO Q7D [facility] Stop: 11/06/16 11:16 Last Admin: 09/25/16 13:24 Dose: 1 cap Fluconazole (Diflucan) 100 mg PO DAILY [facility] Last Admin: 09/25/16 13:25 Dose: 100 mg Guaifenesin/Codeine Phosphate (Robitussin W/Codeine) 10 ml PO Q6 PRN PRN Reason: Cough Last Admin: 09/22/16 21:25 Dose: 10 ml Hydrocortisone (Anusol-Hc) 1 applic MS BID [facility] Last Admin: 09/25/16 08:54 Dose: 1 applic Hydromorphone HCl (Dilaudid) 2 mg PO Q6 PRN PRN Reason: Pain, severe (8-10) Last Admin: 09/23/16 11:45 Dose: 2 mg Hydromorphone HCl (Dilaudid) 1 mg IVP Q4 PRN PRN Reason: Pain, severe (8-10) Last Admin: 09/25/16 08:55 Dose: 1 mg Amikacin Sulfate 250 mg/ (Sodium Chloride) 101 mls @ 100.609 mls/hr IVPB MWF [facility] Last Admin: 09/25/16 13:12 Dose: 100.609 mls/hr Linezolid (Zyvox 600mg/300ml D5w) 600 mg in 300 mls @ 300 mls/hr IVPB Q12@0400, 1600 [facility] Last Admin: 09/25/16 03:14 Dose: 300 mls/hr Meropenem 500 mg/ Sodium (Chloride) 100 mls @ 100 mls/hr IVPB DAILY@0100 [facility] Last Admin: 09/25/16 01:00 Dose: 100 mls/hr Piperacillin Sod/Tazobactam (Sod 2.25 gm/ Sodium Chloride) 100 mls @ 100 mls/ hr IVPB Q12@0200,1400 [facility] Last Admin: 09/25/16 13:26 Dose: 100 mls/hr Insulin Detemir (Levemir) 30 units SC HS [facility] Last Admin: 09/24/16 21:19 Dose: 30 units Insulin Human Lispro (Humalog) 8 units SC AC [facility] Last Admin: 09/25/16 13:25 Dose: 8 units Lidocaine (Lidoderm) 1 ea TD DAILY [facility] Last Admin: 09/25/16 08:59 Dose: 1 ea Nystatin (Mycostatin Oint) 1 applic TOP TID [facility] Last Admin: 09/25/16 13:23 Dose: 1 applic Ondansetron HCl (Zofran Inj) 4 mg IVP Q6 PRN PRN Reason: Nausea/Vomiting Last Admin: 09/19/16 10:26 Dose: 4 mg Pantoprazole Sodium (Protonix Ec Tab) 40 mg PO DAILY [facility] Last Admin: 09/25/16 13:22 Dose: 40 mg Sevelamer HCl (Renagel) 1,600 mg PO TID [facility] Last Admin: 09/25/16 13:23 Dose: 1,600 mg Topiramate (Topamax) 50 mg PO BID [facility] Last Admin: 09/25/16 13:24 Dose: 50 mg Vitamin B Complex/Vit C/Folic Acid (Nephro-Ajay) 1 tab PO DAILY [facility] Last Admin: 09/25/16 13:24 Dose: 1 tab - Labs Labs: 09/20/16 14:50 09/20/16 14:50 PT 16.5 SECONDS (9.6-11.2) H 08/28/16 16:11 INR 1.59 (0.92-1.08) H 08/28/16 16:11 APTT 38.7 SECONDS (23.3-32.5) H 08/28/16 16:11
[2016-09-22] MEDS: Hydrocortisone 2.5% (Rectal) CREAM PR SCH ×2 (08:35→16:49)
[2016-09-22] MEDS: Insulin Lispro (humaLOG) 100 Units/ml Inj SC SCH ×3 (08:38→16:49)
[2016-09-22] MEDS: Lidocaine 5% Patch TD SCH (08:38)
[2016-09-22] MEDS: Meropenem 500 MG in Sodium Chloride 0.9% 100 ML IVPB SCH (08:39)
[2016-09-22] MEDS: Multivitamin Vitamin B Complex (Nephro-Vite) Tab PO SCH (08:40)
[2016-09-22] MEDS: Nystatin Ointment TOP SCH ×3 (08:40→16:50)
[2016-09-22] MEDS: Pantoprazole 40 mg EC Tab PO SCH (08:40)
[2016-09-22] MEDS: Linezolid 600 mg in D5W 300 ml 600 MG/300 ML BAG IVPB SCH ×2 (08:43→21:21)
--- NOTE | 2016-09-22 11:46 | CP.PCM.PN ---
Subjective - Date & Time of Evaluation Date of Evaluation: 09/22/16 Time of Evaluation: 11:31 - Subjective Subjective: Four weeks have passed since the patient was admitted for what was believed to be cellulitis of the right lower extremity and a right heel ulcer covered by necrotic tissue. There was rapid development of SIRS, which required ICU care with pressors, antibiotics and fluids. Initial cultures of right heel, Permacath, and PICC line all grew E. Coli. The patient has now had more than 4 weeks of 4 IV antibiotics (Zosyn, Zyvox, meropenem, and amikacin). Subsequent blood culture was negative, but fever and shaking chills after the right lower leg was moved 2 days ago prompted repeat blood culture and new worries about sepsis. The right lower leg just above the foot is edematous, hot and very painful to touch/pressure. Since there is a Charcot ankle joint and markedly impaired sensation in the right foot and ankle, it is difficult to assess below the point of tenderness. However, the right lower leg and ankle areas are hot. The toes are cold, darkened, shriveled and without sensation. There are no palpable pedal pulses., The patient is menstruating. Hopefully, the Provera regimen recently completed will lead to reduced menstrual flow. Last night because of dysmenorrhea patient was given Dilaudid. Afterward she developed itching in the hands. She was given Benadryl 50 mg with relief. It is not clear if this was a Dilaudid allergy since she still has itchy palms this morning. There were no visible rashes. We must watch this closely. Otherwise, patient's condition remains stable. So far, on the advice of Dr. Gordon, the patient has been refusing amputation of the right foot/ankle. This conflicts with the opinion of the medical treating physicians. I have asked the hospital Collateral Clerk, Dr. Claire Good, to assist in bringing about a conference among the various physicians to help determine the best course of therapy at this time. Objective - Vital Signs/Intake and Output Vital Signs (last 24 hours): Temp Pulse Resp BP Pulse Ox 98 F 109 H 18 125/71 93 L 09/22/16 08:19 09/22/16 08:19 09/22/16 08:19 09/22/16 08:19 09/22/16 08:19 Intake and Output: 09/22/16 09/22/16 06:59 18:59 Intake Total 400 Balance 400 - Medications Medications: Current Medications Acetaminophen (Tylenol 325mg Tab) 650 mg PO Q4 PRN PRN Reason: Fever >100.4 F Last Admin: 09/16/16 17:51 Dose: 650 mg Acetaminophen (Tylenol 325mg Tab) 650 mg PO Q4 PRN PRN Reason: Pain, moderate (4-7) Last Admin: 09/16/16 22:34 Dose: 650 mg Albuterol Sulfate (Albuterol 0.083% Inhal Barbie (2.5 Mg/3 Ml) Ud) 2.5 mg INH RQ4 PRN PRN Reason: Shortness of Breath Albuterol/Ipratropium (Duoneb 3 Mg/0.5 Mg (3 Ml) Ud) 3 ml INH RQ4 PRN PRN Reason: Shortness of Breath Apixaban (Eliquis) 5 mg PO BID [facility] PRN Reason: Protocol Last Admin: 09/22/16 08:37 Dose: 5 mg Aspirin (Ecotrin) 81 mg PO DAILY [facility] Last Admin: 09/22/16 08:37 Dose: 81 mg Atorvastatin Calcium (Lipitor) 40 mg PO DAILY [facility] Last Admin: 09/22/16 08:38 Dose: 40 mg Benzonatate (Tessalon Perles) 200 mg PO TID PRN PRN Reason: Cough Last Admin: 09/20/16 08:16 Dose: 200 mg Cinacalcet (Sensipar) 30 mg PO DAILY [facility] Last Admin: 09/22/16 08:41 Dose: 30 mg Epoetin Tha (Procrit) 20,000 unit IV MWF [facility] Last Admin: 09/20/16 15:50 Dose: 20,000 unit Ergocalciferol (Drisdol 50,000 Intl Units Cap) 1 cap PO Q7D [facility] Stop: 11/06/16 11:16 Last Admin: 09/18/16 14:34 Dose: 1 cap Fluconazole (Diflucan) 100 mg PO DAILY [facility] Last Admin: 09/22/16 08:36 Dose: 100 mg Guaifenesin/Codeine Phosphate (Robitussin W/Codeine) 10 ml PO Q6 PRN PRN Reason: Cough Last Admin: 09/21/16 13:50 Dose: 10 ml Hydrocortisone (Anusol-Hc) 1 applic [place] BID [facility] Last Admin: 09/22/16 08:35 Dose: 1 applic Hydromorphone HCl (Dilaudid) 2 mg PO Q6 PRN PRN Reason: Pain, severe (8-10) Last Admin: 09/21/16 20:57 Dose: 2 mg Meropenem 500 mg/ Sodium (Chloride) 100 mls @ 100 mls/hr IVPB DAILY [facility] Last Admin: 09/22/16 08:39 Dose: 100 mls/hr Amikacin Sulfate 250 mg/ (Sodium Chloride) 101 mls @ 100.609 mls/hr IVPB MWF [facility] Last Admin: 09/20/16 09:02 Dose: 100.609 mls/hr Piperacillin Sod/Tazobactam (Sod 2.25 gm/ Sodium Chloride) 100 mls @ 100 mls/ hr IVPB Q12 [facility] Last Admin: 09/22/16 08:41 Dose: 100 mls/hr Linezolid (Zyvox 600mg/300ml D5w) 600 mg in 300 mls @ 300 mls/hr IVPB Q12 [facility] Last Admin: 09/22/16 08:43 Dose: 300 mls/hr Insulin Detemir (Levemir) 30 units SC HS [facility] Last Admin: 09/21/16 23:00 Dose: 30 units Insulin Human Lispro (Humalog) 8 units SC AC [facility] Last Admin: 09/22/16 08:38 Dose: 8 units Lidocaine (Lidoderm) 1 ea TD DAILY [facility] Last Admin: 09/22/16 08:38 Dose: 1 ea Nystatin (Mycostatin Oint) 1 applic TOP TID [facility] Last Admin: 09/22/16 08:40 Dose: 1 applic Ondansetron HCl (Zofran Inj) 4 mg IVP Q6 PRN PRN Reason: Nausea/Vomiting Last Admin: 09/19/16 10:26 Dose: 4 mg Pantoprazole Sodium (Protonix Ec Tab) 40 mg PO DAILY [facility] Last Admin: 09/22/16 08:40 Dose: 40 mg Sevelamer HCl (Renagel) 1,600 mg PO TID [facility] Last Admin: 09/22/16 08:40 Dose: 1,600 mg Topiramate (Topamax) 50 mg PO BID [facility] Last Admin: 09/22/16 08:41 Dose: 50 mg Vitamin B Complex/Vit C/Folic Acid (Nephro-Ajay) 1 tab PO DAILY [facility] Last Admin: 09/22/16 08:40 Dose: 1 tab - Labs Labs: 09/20/16 14:50 09/20/16 14:50 PT 16.5 SECONDS (9.6-11.2) H 08/28/16 16:11 INR 1.59 (0.92-1.08) H 08/28/16 16:11 APTT 38.7 SECONDS (23.3-32.5) H 08/28/16 16:11 - Constitutional Appears: No Acute Distress - Head Exam Head Exam: NORMAL INSPECTION - Eye Exam Eye Exam: Normal appearance - ENT Exam ENT Exam: Mucous Membranes Moist - Neck Exam Neck Exam: Normal Inspection Additional comments: Right Permacath intact. - Respiratory Exam Respiratory Exam: Clear to Ausculation Bilateral, NORMAL BREATHING PATTERN - Cardiovascular Exam Cardiovascular Exam: REGULAR RHYTHM, +S1, +S2 - GI/Abdominal Exam GI & Abdominal Exam: Soft - Extremities Exam Additional comments: See SUBJECTIVE (above) for detailed dscription of right lower leg/foot. The necrotic tissue covering the right heel is somewhat boggy, but there is scant drainage. After cleansing with sterlile saline, a Culturette swab was done around the fibrotic edges and sent to the lab. The heel was redressed. The left femoral vein PICC line is intact. Otherwise no changes. - Neurological Exam Neurological Exam: Abnormal Gait (Patient is unable to ambulate - due to pain and restrictions by podiatry), Alert, Awake, CN II-XII Intact, Oriented x3 - Psychiatric Exam Psychiatric exam: Anxious, Depressed, Normal Affect - Skin Additional comments: Allevyn dressing to lower sacral buttock areas. Calcium alginate dressings beneath breasts. Assessment and Plan (1) Osteomyelitis of ankle or foot Assessment & Plan: SEE SUBJECTIVE Status: Acute (2) ESRD (end stage renal disease) on dialysis Status: Chronic (3) DM type 2 (diabetes mellitus, type 2) Status: Chronic (4) Coagulopathy Status: Chronic (5) Peripheral arterial occlusive disease Status: Chronic (6) Pneumonia Status: Acute (7) Decubitus ulcer of buttock, stage 2 Status: Acute
--- NOTE | 2016-09-22 12:46 | PN ---
DATE: 09/22/2016 ROOM: 660 This is a 46-year-old female with recent uncontrolled type 2 insulin-requiring diabetes, now being fo llowed closely for metabolic management. Her glycemic levels are fluctuating, but much improved at this time and the latest glucose levels hav e ranged from 158-162 mg/dL. So at this time, we will continue the same basal and bolus insulin regimen to allow for dose equilibr ation and keep her on the Levemir given as 30 units subQ at bedtime daily and Humalog given as 8 unit s subQ t.i.d. before meals as ordered. We will titrate incrementally as indicated to optimize metabo lic control. We will also continue the same ongoing IV antibiotic management for her right lower ext remity nonhealing neuropathic heel ulcer with underlying osteomyelitis and cellulitis as noted. We w ill obtain serial chemistries and supplement accordingly as needed. We will follow. Irene Ambrose MD cc: [id number] TT: 09/22/2016 12:46:09 Confirmation # [id number] Dictation # [id number] en
[2016-09-22] MEDS: guaiFENesin-Codeine 100-10mg/5ml Syrup (5 ml) UD PO PRN (21:25)
[2016-09-22] MEDS: Insulin Detemir 100 Units/ml Inj SC SCH (21:25)
--- NOTE | 2016-09-23 00:35 | CP.PCM.PN ---
Subjective - Date & Time of Evaluation Date of Evaluation: 09/22/16 Time of Evaluation: 22:05 - Subjective Subjective: No seizures or near syncope, her problem of menstruation has responded to treatment. Her Right side leg pain and heel pain has not caused significant problems recently. She looks better in general. She suffers ESRD and is a dialysis patient. Objective - Vital Signs/Intake and Output Vital Signs (last 24 hours): Temp Pulse Resp BP Pulse Ox 98.4 F 83 20 143/86 97 09/22/16 17:16 09/22/16 17:16 09/22/16 17:16 09/22/16 17:16 09/22/16 17:16 - Medications Medications: Current Medications Acetaminophen (Tylenol 325mg Tab) 650 mg PO Q4 PRN PRN Reason: Fever >100.4 F Last Admin: 09/16/16 17:51 Dose: 650 mg Acetaminophen (Tylenol 325mg Tab) 650 mg PO Q4 PRN PRN Reason: Pain, moderate (4-7) Last Admin: 09/16/16 22:34 Dose: 650 mg Albuterol Sulfate (Albuterol 0.083% Inhal Barbie (2.5 Mg/3 Ml) Ud) 2.5 mg INH RQ4 PRN PRN Reason: Shortness of Breath Albuterol/Ipratropium (Duoneb 3 Mg/0.5 Mg (3 Ml) Ud) 3 ml INH RQ4 PRN PRN Reason: Shortness of Breath Apixaban (Eliquis) 5 mg PO BID [facility] PRN Reason: Protocol Last Admin: 09/22/16 16:49 Dose: 5 mg Aspirin (Ecotrin) 81 mg PO DAILY [facility] Last Admin: 09/22/16 08:37 Dose: 81 mg Atorvastatin Calcium (Lipitor) 40 mg PO DAILY [facility] Last Admin: 09/22/16 08:38 Dose: 40 mg Benzonatate (Tessalon Perles) 200 mg PO TID PRN PRN Reason: Cough Last Admin: 09/20/16 08:16 Dose: 200 mg Cinacalcet (Sensipar) 30 mg PO DAILY [facility] Last Admin: 09/22/16 08:41 Dose: 30 mg Epoetin Tha (Procrit) 20,000 unit IV MWF [facility] Last Admin: 09/20/16 15:50 Dose: 20,000 unit Ergocalciferol (Drisdol 50,000 Intl Units Cap) 1 cap PO Q7D [facility] Stop: 11/06/16 11:16 Last Admin: 09/18/16 14:34 Dose: 1 cap Fluconazole (Diflucan) 100 mg PO DAILY [facility] Last Admin: 09/22/16 08:36 Dose: 100 mg Guaifenesin/Codeine Phosphate (Robitussin W/Codeine) 10 ml PO Q6 PRN PRN Reason: Cough Last Admin: 09/22/16 21:25 Dose: 10 ml Hydrocortisone (Anusol-Hc) 1 applic SD BID [facility] Last Admin: 09/22/16 16:49 Dose: 1 applic Hydromorphone HCl (Dilaudid) 2 mg PO Q6 PRN PRN Reason: Pain, severe (8-10) Last Admin: 09/21/16 20:57 Dose: 2 mg Meropenem 500 mg/ Sodium (Chloride) 100 mls @ 100 mls/hr IVPB DAILY [facility] Last Admin: 09/22/16 08:39 Dose: 100 mls/hr Amikacin Sulfate 250 mg/ (Sodium Chloride) 101 mls @ 100.609 mls/hr IVPB MWF [facility] Last Admin: 09/20/16 09:02 Dose: 100.609 mls/hr Piperacillin Sod/Tazobactam (Sod 2.25 gm/ Sodium Chloride) 100 mls @ 100 mls/ hr IVPB Q12 [facility] Last Admin: 09/22/16 21:17 Dose: 100 mls/hr Linezolid (Zyvox 600mg/300ml D5w) 600 mg in 300 mls @ 300 mls/hr IVPB Q12 [facility] Last Admin: 09/22/16 21:21 Dose: 300 mls/hr Insulin Detemir (Levemir) 30 units SC HS [facility] Last Admin: 09/22/16 21:25 Dose: 30 units Insulin Human Lispro (Humalog) 8 units SC AC [facility] Last Admin: 09/22/16 16:49 Dose: 8 units Lidocaine (Lidoderm) 1 ea TD DAILY [facility] Last Admin: 09/22/16 08:38 Dose: 1 ea Nystatin (Mycostatin Oint) 1 applic TOP TID [facility] Last Admin: 09/22/16 16:50 Dose: 1 applic Ondansetron HCl (Zofran Inj) 4 mg IVP Q6 PRN PRN Reason: Nausea/Vomiting Last Admin: 09/19/16 10:26 Dose: 4 mg Pantoprazole Sodium (Protonix Ec Tab) 40 mg PO DAILY [facility] Last Admin: 09/22/16 08:40 Dose: 40 mg Sevelamer HCl (Renagel) 1,600 mg PO TID [facility] Last Admin: 09/22/16 16:50 Dose: 1,600 mg Topiramate (Topamax) 50 mg PO BID [facility] Last Admin: 09/22/16 16:50 Dose: 50 mg Vitamin B Complex/Vit C/Folic Acid (Nephro-Ajay) 1 tab PO DAILY [facility] Last Admin: 09/22/16 08:40 Dose: 1 tab - Labs Labs: 09/20/16 14:50 09/20/16 14:50 PT 16.5 SECONDS (9.6-11.2) H 08/28/16 16:11 INR 1.59 (0.92-1.08) H 08/28/16 16:11 APTT 38.7 SECONDS (23.3-32.5) H 08/28/16 16:11 Assessment and Plan (1) Diabetes Status: Chronic (2) ESRD (end stage renal disease) Status: Chronic (3) Cellulitis of leg Status: Acute (4) Hyperlipidemia Status: Chronic (5) Back pain Status: Acute (6) Bacteremia due to Gram-negative bacteria Status: Acute (7) Diabetes mellitus type 2 with peripheral artery disease Status: Acute (8) PVD (peripheral vascular disease) Status: Acute
--- NOTE | 2016-09-23 07:09 | CP.PCM.PN ---
Subjective - Date & Time of Evaluation Date of Evaluation: 09/23/16 Time of Evaluation: 07:20 - Subjective Subjective: 46 year old female seen at bedside regarding heel eschar and myositis. Pt seen resting in bed at time of visit. Patient states that she has had no major overnight events. She denies recent f/n/v/c/sob/cp at this time. Objective - Vital Signs/Intake and Output Vital Signs (last 24 hours): Temp Pulse Resp BP Pulse Ox 98.9 F 106 H 19 102/41 L 94 L 09/23/16 00:37 09/23/16 00:37 09/23/16 00:37 09/23/16 00:37 09/23/16 00:37 - Medications Medications: Current Medications Acetaminophen (Tylenol 325mg Tab) 650 mg PO Q4 PRN PRN Reason: Fever >100.4 F Last Admin: 09/16/16 17:51 Dose: 650 mg Acetaminophen (Tylenol 325mg Tab) 650 mg PO Q4 PRN PRN Reason: Pain, moderate (4-7) Last Admin: 09/16/16 22:34 Dose: 650 mg Albuterol Sulfate (Albuterol 0.083% Inhal Barbie (2.5 Mg/3 Ml) Ud) 2.5 mg INH RQ4 PRN PRN Reason: Shortness of Breath Albuterol/Ipratropium (Duoneb 3 Mg/0.5 Mg (3 Ml) Ud) 3 ml INH RQ4 PRN PRN Reason: Shortness of Breath Apixaban (Eliquis) 5 mg PO BID [facility] PRN Reason: Protocol Last Admin: 09/22/16 16:49 Dose: 5 mg Aspirin (Ecotrin) 81 mg PO DAILY [facility] Last Admin: 09/22/16 08:37 Dose: 81 mg Atorvastatin Calcium (Lipitor) 40 mg PO DAILY [facility] Last Admin: 09/22/16 08:38 Dose: 40 mg Benzonatate (Tessalon Perles) 200 mg PO TID PRN PRN Reason: Cough Last Admin: 09/20/16 08:16 Dose: 200 mg Cinacalcet (Sensipar) 30 mg PO DAILY [facility] Last Admin: 09/22/16 08:41 Dose: 30 mg Epoetin Tha (Procrit) 20,000 unit IV MWF [facility] Last Admin: 09/20/16 15:50 Dose: 20,000 unit Ergocalciferol (Drisdol 50,000 Intl Units Cap) 1 cap PO Q7D [facility] Stop: 11/06/16 11:16 Last Admin: 09/18/16 14:34 Dose: 1 cap Fluconazole (Diflucan) 100 mg PO DAILY [facility] Last Admin: 09/22/16 08:36 Dose: 100 mg Guaifenesin/Codeine Phosphate (Robitussin W/Codeine) 10 ml PO Q6 PRN PRN Reason: Cough Last Admin: 09/22/16 21:25 Dose: 10 ml Hydrocortisone (Anusol-Hc) 1 applic MS BID [facility] Last Admin: 09/22/16 16:49 Dose: 1 applic Hydromorphone HCl (Dilaudid) 2 mg PO Q6 PRN PRN Reason: Pain, severe (8-10) Last Admin: 09/21/16 20:57 Dose: 2 mg Meropenem 500 mg/ Sodium (Chloride) 100 mls @ 100 mls/hr IVPB DAILY [facility] Last Admin: 09/22/16 08:39 Dose: 100 mls/hr Amikacin Sulfate 250 mg/ (Sodium Chloride) 101 mls @ 100.609 mls/hr IVPB MWF [facility] Last Admin: 09/20/16 09:02 Dose: 100.609 mls/hr Piperacillin Sod/Tazobactam (Sod 2.25 gm/ Sodium Chloride) 100 mls @ 100 mls/ hr IVPB Q12 [facility] Last Admin: 09/22/16 21:17 Dose: 100 mls/hr Linezolid (Zyvox 600mg/300ml D5w) 600 mg in 300 mls @ 300 mls/hr IVPB Q12 [facility] Last Admin: 09/22/16 21:21 Dose: 300 mls/hr Insulin Detemir (Levemir) 30 units SC HS [facility] Last Admin: 09/22/16 21:25 Dose: 30 units Insulin Human Lispro (Humalog) 8 units SC AC [facility] Last Admin: 09/22/16 16:49 Dose: 8 units Lidocaine (Lidoderm) 1 ea TD DAILY [facility] Last Admin: 09/22/16 08:38 Dose: 1 ea Nystatin (Mycostatin Oint) 1 applic TOP TID [facility] Last Admin: 05/14/17 16:50 Dose: 1 applic Ondansetron HCl (Zofran Inj) 4 mg IVP Q6 PRN PRN Reason: Nausea/Vomiting Last Admin: 09/19/16 10:26 Dose: 4 mg Pantoprazole Sodium (Protonix Ec Tab) 40 mg PO DAILY [facility] Last Admin: 09/22/16 08:40 Dose: 40 mg Sevelamer HCl (Renagel) 1,600 mg PO TID [facility] Last Admin: 09/22/16 16:50 Dose: 1,600 mg Topiramate (Topamax) 50 mg PO BID [facility] Last Admin: 09/22/16 16:50 Dose: 50 mg Vitamin B Complex/Vit C/Folic Acid (Nephro-Ajay) 1 tab PO DAILY [facility] Last Admin: 09/22/16 08:40 Dose: 1 tab - Labs Labs: 09/20/16 14:50 09/20/16 14:50 PT 16.5 SECONDS (9.6-11.2) H 08/28/16 16:11 INR 1.59 (0.92-1.08) H 08/28/16 16:11 APTT 38.7 SECONDS (23.3-32.5) H 08/28/16 16:11 - Constitutional Appears: Non-toxic, No Acute Distress, Chronically Ill - Extremities Exam Additional comments: Right lower extremity focused exam: VASC- DP and PT pulses non-palpable, capillary refill < 5 sec to digits, Mild edema noted to anterior aspect of leg and dorsum of foot, signs decreased, edema with near full return of relaxed skin tension lines. Minor leg callor present, absent erythema. NEURO-Gross pedal sensation is diminished DERM- Superficial dry eschar noted to plantar aspect of heel, with fibrotic tissue noted along eschar. Moderate increased warmth noted to distal leg and ankle. No local or ascending erythema, no acute signs infection. Eschar itself soft and is absent fluctuance. ORTHO- No tenderness along palpation of muscle belly course of gastrocnemius, peroneals. Pain along Distal 1/3 of Achilles tendon. Moderate tenderness noted along distal 6cm course of tibialis anterior muscle proximal to ankle joint. Tenderness noted to lateral aspect of ankle, at apex of varus deformity. Severe varus deformity with dislocation of ankle noted. - Neurological Exam Neurological Exam: Alert, Awake, Oriented x3 - Psychiatric Exam Psychiatric exam: Normal Affect, Normal Mood Assessment and Plan - Assessment and Plan (Free Text) Assessment: 46 yo female patient w/ pmhx of HTN, ESRD (on dialysis), coagulopathy, DM, Charcot Arthropathy of Right foot PVD w/ dry eschar of right heel, symotomatic myositis & tendonitis. Plan: Patient evaluated and treated. Discussed in detail with attending. Medical provider, consulting service physician notes, & Physical therapy evaluation reviewed. Dr. Resendez made aware of all pertinent changes and findings. Chart, labs, vitals reviewed; afebrile Re-dressing change with wet to dry sterile gauze, and DSD. Multipodus boot to be worn at all times while in bed -Continue IV abx per ID -Goal of physical therapy should be continued re-conditioning with transfer training and leg strengthening. However with ill fitting right leg [place] boot full weight-bearing ambulation contraindicated at this time, until [place] boot can be re-fashioned. - Note that aggressive physical activity to a Charcot joint can exacerbate symptoms returning to acute phase Charcot which presents as painful, swollen, and erythematous. Podiatry will continue to follow patient while in house
[2016-09-23] MEDS: Nystatin Ointment TOP SCH ×3 (08:25→17:00)
[2016-09-23] MEDS: Hydrocortisone 2.5% (Rectal) CREAM PR SCH ×2 (09:00→18:25)
[2016-09-23] MEDS: Pantoprazole 40 mg EC Tab PO SCH (09:19)
[2016-09-23] MEDS: Multivitamin Vitamin B Complex (Nephro-Vite) Tab PO SCH (09:19)
[2016-09-23] MEDS: Lidocaine 5% Patch TD SCH (09:20)
[2016-09-23] MEDS: Insulin Lispro (humaLOG) 100 Units/ml Inj SC SCH ×3 (09:23→18:25)
[2016-09-23] MEDS: Linezolid 600 mg in D5W 300 ml 600 MG/300 ML BAG IVPB SCH (09:29)
[2016-09-23 10:15] LABS: AMIKACIN 12.8 mg/L (see note)
--- NOTE | 2016-09-23 11:46 | CP.PCM.PN ---
Subjective - Date & Time of Evaluation Date of Evaluation: 09/23/16 Time of Evaluation: 11:02 Objective - Vital Signs/Intake and Output Vital Signs (last 24 hours): Temp Pulse Resp BP Pulse Ox 97.6 F 104 H 19 96/55 L 94 L 09/23/16 07:47 09/23/16 07:47 09/23/16 07:47 09/23/16 07:47 09/23/16 07:47 - Medications Medications: Current Medications Acetaminophen (Tylenol 325mg Tab) 650 mg PO Q4 PRN PRN Reason: Fever >100.4 F Last Admin: 09/16/16 17:51 Dose: 650 mg Acetaminophen (Tylenol 325mg Tab) 650 mg PO Q4 PRN PRN Reason: Pain, moderate (4-7) Last Admin: 09/16/16 22:34 Dose: 650 mg Albuterol Sulfate (Albuterol 0.083% Inhal Barbie (2.5 Mg/3 Ml) Ud) 2.5 mg INH RQ4 PRN PRN Reason: Shortness of Breath Albuterol/Ipratropium (Duoneb 3 Mg/0.5 Mg (3 Ml) Ud) 3 ml INH RQ4 PRN PRN Reason: Shortness of Breath Apixaban (Eliquis) 5 mg PO BID [facility] PRN Reason: Protocol Last Admin: 09/23/16 09:20 Dose: 5 mg Aspirin (Ecotrin) 81 mg PO DAILY [facility] Last Admin: 09/23/16 09:19 Dose: 81 mg Atorvastatin Calcium (Lipitor) 40 mg PO DAILY [facility] Last Admin: 09/23/16 09:19 Dose: 40 mg Benzonatate (Tessalon Perles) 200 mg PO TID PRN PRN Reason: Cough Last Admin: 09/20/16 08:16 Dose: 200 mg Cinacalcet (Sensipar) 30 mg PO DAILY [facility] Last Admin: 09/23/16 09:19 Dose: 30 mg Epoetin Tha (Procrit) 20,000 unit IV MWF [facility] Last Admin: 09/20/16 15:50 Dose: 20,000 unit Ergocalciferol (Drisdol 50,000 Intl Units Cap) 1 cap PO Q7D [facility] Stop: 11/06/16 11:16 Last Admin: 09/18/16 14:34 Dose: 1 cap Fluconazole (Diflucan) 100 mg PO DAILY [facility] Last Admin: 09/23/16 09:19 Dose: 100 mg Guaifenesin/Codeine Phosphate (Robitussin W/Codeine) 10 ml PO Q6 PRN PRN Reason: Cough Last Admin: 09/22/16 21:25 Dose: 10 ml Hydrocortisone (Anusol-Hc) 1 applic DE BID [facility] Last Admin: 09/22/16 16:49 Dose: 1 applic Hydromorphone HCl (Dilaudid) 2 mg PO Q6 PRN PRN Reason: Pain, severe (8-10) Last Admin: 09/21/16 20:57 Dose: 2 mg Meropenem 500 mg/ Sodium (Chloride) 100 mls @ 100 mls/hr IVPB DAILY [facility] Last Admin: 09/22/16 08:39 Dose: 100 mls/hr Amikacin Sulfate 250 mg/ (Sodium Chloride) 101 mls @ 100.609 mls/hr IVPB MWF [facility] Last Admin: 09/23/16 09:18 Dose: 100.609 mls/hr Piperacillin Sod/Tazobactam (Sod 2.25 gm/ Sodium Chloride) 100 mls @ 100 mls/ hr IVPB Q12 [facility] Last Admin: 09/23/16 09:17 Dose: 100 mls/hr Linezolid (Zyvox 600mg/300ml D5w) 600 mg in 300 mls @ 300 mls/hr IVPB Q12 [facility] Last Admin: 09/23/16 09:29 Dose: 300 mls/hr Insulin Detemir (Levemir) 30 units SC HS [facility] Last Admin: 09/22/16 21:25 Dose: 30 units Insulin Human Lispro (Humalog) 8 units SC AC [facility] Last Admin: 09/23/16 09:23 Dose: 8 units Lidocaine (Lidoderm) 1 ea TD DAILY [facility] Last Admin: 09/23/16 09:20 Dose: 1 ea Nystatin (Mycostatin Oint) 1 applic TOP TID [facility] Last Admin: 09/22/16 16:50 Dose: 1 applic Ondansetron HCl (Zofran Inj) 4 mg IVP Q6 PRN PRN Reason: Nausea/Vomiting Last Admin: 09/19/16 10:26 Dose: 4 mg Pantoprazole Sodium (Protonix Ec Tab) 40 mg PO DAILY [facility] Last Admin: 09/23/16 09:19 Dose: 40 mg Sevelamer HCl (Renagel) 1,600 mg PO TID [facility] Last Admin: 09/23/16 09:19 Dose: 1,600 mg Topiramate (Topamax) 50 mg PO BID [facility] Last Admin: 09/23/16 09:19 Dose: 50 mg Vitamin B Complex/Vit C/Folic Acid (Nephro-Ajay) 1 tab PO DAILY [facility] Last Admin: 09/23/16 09:19 Dose: 1 tab - Labs Labs: 09/20/16 14:50 09/20/16 14:50 PT 16.5 SECONDS (9.6-11.2) H 08/28/16 16:11 INR 1.59 (0.92-1.08) H 08/28/16 16:11 APTT 38.7 SECONDS (23.3-32.5) H 08/28/16 16:11 Assessment and Plan (1) Osteomyelitis of ankle or foot Status: Acute (2) ESRD (end stage renal disease) on dialysis Status: Chronic (3) DM type 2 (diabetes mellitus, type 2) Status: Chronic (4) Coagulopathy Status: Chronic (5) Peripheral arterial occlusive disease Status: Chronic (6) Pneumonia Status: Acute (7) Decubitus ulcer of buttock, stage 2 Status: Acute
--- NOTE | 2016-09-23 12:07 | CP.PCM.PN ---
Subjective - Date & Time of Evaluation Date of Evaluation: 09/23/16 Time of Evaluation: 11:51 - Subjective Subjective: Patent feels weak - menses continue. She has not been out of bed for 2 days. Physical therapy has been getting her OOB and to work on strengthening residual left leg. The therapist says the right leg is so painful that they can hardly touch it to move her. Podiatry says she cannot bear weight on that right leg. So after 5 weeks in bed, what is the plan? R lower leg is very tender in Achilles tendon area where it inserts on heel. The right foot and heel have no sensation so additional evaluation is not possible. She cannot move her toes. I remain convinced that the patient has osteomyelitis of the right heel along with myositis and tendonitis. It has not gotten any better in over 4 weeks of quadruple iv antibiotic therapy. Blood cultures drawn on 09/20/16 while the patient was having chills and fever were never processed. Although they were hand carried to our lab at [facility] blood cultures by nurse Muriel Xavier, they were never processed by our lab. Nurse Xavier was told that the labs went directly to [facility] where they have been sitting. Our computer cancelled the tests... on 09/22 ??? But, now the the Graduating Machine Operator of the [facility] lab says the blood cannot be found. I have ordered repeat blood culture should the patient again have fever and chills. Patient is no better, and I am asking Dr. Claire Good to arrange for a conference among the various physicians to help with decision making in the care of this challenging patient. Objective - Vital Signs/Intake and Output Vital Signs (last 24 hours): Temp Pulse Resp BP Pulse Ox 97.6 F 104 H 19 96/55 L 94 L 09/23/16 07:47 09/23/16 07:47 09/23/16 07:47 09/23/16 07:47 09/23/16 07:47 - Medications Medications: Current Medications Acetaminophen (Tylenol 325mg Tab) 650 mg PO Q4 PRN PRN Reason: Fever >100.4 F Last Admin: 09/16/16 17:51 Dose: 650 mg Acetaminophen (Tylenol 325mg Tab) 650 mg PO Q4 PRN PRN Reason: Pain, moderate (4-7) Last Admin: 09/16/16 22:34 Dose: 650 mg Albuterol Sulfate (Albuterol 0.083% Inhal Barbie (2.5 Mg/3 Ml) Ud) 2.5 mg INH RQ4 PRN PRN Reason: Shortness of Breath Albuterol/Ipratropium (Duoneb 3 Mg/0.5 Mg (3 Ml) Ud) 3 ml INH RQ4 PRN PRN Reason: Shortness of Breath Apixaban (Eliquis) 5 mg PO BID [facility] PRN Reason: Protocol Last Admin: 09/23/16 09:20 Dose: 5 mg Aspirin (Ecotrin) 81 mg PO DAILY [facility] Last Admin: 09/23/16 09:19 Dose: 81 mg Atorvastatin Calcium (Lipitor) 40 mg PO DAILY [facility] Last Admin: 09/23/16 09:19 Dose: 40 mg Benzonatate (Tessalon Perles) 200 mg PO TID PRN PRN Reason: Cough Last Admin: 09/20/16 08:16 Dose: 200 mg Cinacalcet (Sensipar) 30 mg PO DAILY [facility] Last Admin: 09/23/16 09:19 Dose: 30 mg Epoetin Tha (Procrit) 20,000 unit IV MWF [facility] Last Admin: 09/20/16 15:50 Dose: 20,000 unit Ergocalciferol (Drisdol 50,000 Intl Units Cap) 1 cap PO Q7D [facility] Stop: 11/06/16 11:16 Last Admin: 09/18/16 14:34 Dose: 1 cap Fluconazole (Diflucan) 100 mg PO DAILY [facility] Last Admin: 09/23/16 09:19 Dose: 100 mg Guaifenesin/Codeine Phosphate (Robitussin W/Codeine) 10 ml PO Q6 PRN PRN Reason: Cough Last Admin: 09/22/16 21:25 Dose: 10 ml Hydrocortisone (Anusol-Hc) 1 applic [place] BID [facility] Last Admin: 09/23/16 09:00 Dose: 1 applic Hydromorphone HCl (Dilaudid) 2 mg PO Q6 PRN PRN Reason: Pain, severe (8-10) Last Admin: 09/23/16 11:45 Dose: 2 mg Meropenem 500 mg/ Sodium (Chloride) 100 mls @ 100 mls/hr IVPB DAILY [facility] Last Admin: 09/22/16 08:39 Dose: 100 mls/hr Amikacin Sulfate 250 mg/ (Sodium Chloride) 101 mls @ 100.609 mls/hr IVPB MWF [facility] Last Admin: 09/23/16 09:18 Dose: 100.609 mls/hr Piperacillin Sod/Tazobactam (Sod 2.25 gm/ Sodium Chloride) 100 mls @ 100 mls/ hr IVPB Q12 [facility] Last Admin: 09/23/16 09:17 Dose: 100 mls/hr Linezolid (Zyvox 600mg/300ml D5w) 600 mg in 300 mls @ 300 mls/hr IVPB Q12 [facility] Last Admin: 09/23/16 09:29 Dose: 300 mls/hr Insulin Detemir (Levemir) 30 units SC HS [facility] Last Admin: 09/22/16 21:25 Dose: 30 units Insulin Human Lispro (Humalog) 8 units SC AC [facility] Last Admin: 09/23/16 09:23 Dose: 8 units Lidocaine (Lidoderm) 1 ea TD DAILY [facility] Last Admin: 09/23/16 09:20 Dose: 1 ea Nystatin (Mycostatin Oint) 1 applic TOP TID [facility] Last Admin: 09/23/16 08:25 Dose: 1 applic Ondansetron HCl (Zofran Inj) 4 mg IVP Q6 PRN PRN Reason: Nausea/Vomiting Last Admin: 09/19/16 10:26 Dose: 4 mg Pantoprazole Sodium (Protonix Ec Tab) 40 mg PO DAILY [facility] Last Admin: 09/23/16 09:19 Dose: 40 mg Sevelamer HCl (Renagel) 1,600 mg PO TID [facility] Last Admin: 09/23/16 09:19 Dose: 1,600 mg Topiramate (Topamax) 50 mg PO BID [facility] Last Admin: 09/23/16 09:19 Dose: 50 mg Vitamin B Complex/Vit C/Folic Acid (Nephro-Ajay) 1 tab PO DAILY [facility] Last Admin: 09/23/16 09:19 Dose: 1 tab - Labs Labs: 09/20/16 14:50 09/20/16 14:50 PT 16.5 SECONDS (9.6-11.2) H 08/28/16 16:11 INR 1.59 (0.92-1.08) H 08/28/16 16:11 APTT 38.7 SECONDS (23.3-32.5) H 08/28/16 16:11 - Constitutional Appears: No Acute Distress - ENT Exam ENT Exam: Mucous Membranes Moist - Neck Exam Neck Exam: Normal Inspection - Respiratory Exam Respiratory Exam: Clear to Ausculation Bilateral - Cardiovascular Exam Cardiovascular Exam: REGULAR RHYTHM, +S1, +S2 - GI/Abdominal Exam GI & Abdominal Exam: Soft - Extremities Exam Additional comments: SEE SUBJECTIVE Assessment and Plan (1) Osteomyelitis of ankle or foot Assessment & Plan: see subjective Status: Acute (2) ESRD (end stage renal disease) on dialysis Status: Chronic (3) DM type 2 (diabetes mellitus, type 2) Status: Chronic (4) Coagulopathy Status: Chronic (5) Peripheral arterial occlusive disease Status: Chronic (6) Pneumonia Status: Acute (7) Decubitus ulcer of buttock, stage 2 Status: Acute
--- NOTE | 2016-09-23 13:53 | CP.PCM.PN ---
Subjective - Date & Time of Evaluation Date of Evaluation: 09/23/16 Time of Evaluation: 10:30 - Subjective Subjective: Follow up Nephrology Consultation Note Assessment/Plan: End stage renal disease on hemodialysis (MWF) via permacath: Will plan for dialysis today as ordered. continue with Nephrovite 1 tab/day. Anemia: PRBC as needed. On MARTHA as Epogen 20,000 with HD. last Hb 9.8 TSAT 73% and ferritin >1000 Hyperphosphatemia: continue with current meds as renagel 1600 TID last phos level 5.0 Secondary hyperparathyroidism with Vit D Deficiency: continue with sensipar 30 mg/day. Last PTH level 423. Vit D <12. supplemented with ergo 50,000 weekly x 8 doses Hypertension controlled: BP mostly on low side Glycemic control, Dialysis consistent diet Further work up/management as per primary team. pt want to try antibiotics only for Rt foot infection. 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 Dose meds/antibiotics for ESRD status. Avoid fleets enema/magnesium based laxatives. Thanks for allowing me to participate in care of your patient. Will follow patient with you. Please call if any Qs Dr Hernan Andino Office: [phone] Subjective: Noted events overnight. Patients feels okay. Denies chest pain, palpitation, shortness of breath, leg swelling. Physical Examination: General Appearance: Comfortable, in no acute respiratory distress, co- operative. obese Vitals reviewed and noted as below Lungs: Normal respiratory rate/effort. Breath sounds bilateral equal and clear Heart: Normal rate. s1s2 normal. No rub or gallop. Extremities: RLE edema. Rt foot dressed, left BKA. Neurological: Patient is alert, awake and oriented to person, place and time. No focal deficit. Strength bilateral appropriate and equal Skin: Warm and dry. Normal turgor. No rash. Palpitation: Normal elasticity for age Abdomen: Abdomen is soft. Bowel sounds +. There is no abdominal tenderness, no guarding/rigidity or organomegaly. she is obese : kidney or bladder not palpable Access: permacath Labs/imaging reviewed. Past medical history, past surgical history, family history, social history, allergy reviewed Objective - Vital Signs/Intake and Output Vital Signs (last 24 hours): Temp Pulse Resp BP Pulse Ox 97.6 F 104 H 19 96/55 L 94 L 09/23/16 07:47 09/23/16 07:47 09/23/16 07:47 09/23/16 07:47 09/23/16 07:47 - Medications Medications: Current Medications Acetaminophen (Tylenol 325mg Tab) 650 mg PO Q4 PRN PRN Reason: Fever >100.4 F Last Admin: 09/16/16 17:51 Dose: 650 mg Acetaminophen (Tylenol 325mg Tab) 650 mg PO Q4 PRN PRN Reason: Pain, moderate (4-7) Last Admin: 09/16/16 22:34 Dose: 650 mg Albuterol Sulfate (Albuterol 0.083% Inhal Barbie (2.5 Mg/3 Ml) Ud) 2.5 mg INH RQ4 PRN PRN Reason: Shortness of Breath Albuterol/Ipratropium (Duoneb 3 Mg/0.5 Mg (3 Ml) Ud) 3 ml INH RQ4 PRN PRN Reason: Shortness of Breath Apixaban (Eliquis) 5 mg PO BID [facility] PRN Reason: Protocol Last Admin: 09/23/16 09:20 Dose: 5 mg Aspirin (Ecotrin) 81 mg PO DAILY [facility] Last Admin: 09/23/16 09:19 Dose: 81 mg Atorvastatin Calcium (Lipitor) 40 mg PO DAILY [facility] Last Admin: 09/23/16 09:19 Dose: 40 mg Benzonatate (Tessalon Perles) 200 mg PO TID PRN PRN Reason: Cough Last Admin: 09/20/16 08:16 Dose: 200 mg Cinacalcet (Sensipar) 30 mg PO DAILY [facility] Last Admin: 09/23/16 09:19 Dose: 30 mg Epoetin Tha (Procrit) 20,000 unit IV MWF [facility] Last Admin: 09/20/16 15:50 Dose: 20,000 unit Ergocalciferol (Drisdol 50,000 Intl Units Cap) 1 cap PO Q7D [facility] Stop: 11/06/16 11:16 Last Admin: 09/18/16 14:34 Dose: 1 cap Fluconazole (Diflucan) 100 mg PO DAILY [facility] Last Admin: 09/23/16 09:19 Dose: 100 mg Guaifenesin/Codeine Phosphate (Robitussin W/Codeine) 10 ml PO Q6 PRN PRN Reason: Cough Last Admin: 09/22/16 21:25 Dose: 10 ml Hydrocortisone (Anusol-Hc) 1 applic [place] BID [facility] Last Admin: 09/23/16 09:00 Dose: 1 applic Hydromorphone HCl (Dilaudid) 2 mg PO Q6 PRN PRN Reason: Pain, severe (8-10) Last Admin: 09/23/16 11:45 Dose: 2 mg Meropenem 500 mg/ Sodium (Chloride) 100 mls @ 100 mls/hr IVPB DAILY [facility] Last Admin: 09/22/16 08:39 Dose: 100 mls/hr Amikacin Sulfate 250 mg/ (Sodium Chloride) 101 mls @ 100.609 mls/hr IVPB MWF [facility] Last Admin: 09/23/16 09:18 Dose: 100.609 mls/hr Piperacillin Sod/Tazobactam (Sod 2.25 gm/ Sodium Chloride) 100 mls @ 100 mls/ hr IVPB Q12 [facility] Last Admin: 09/23/16 09:17 Dose: 100 mls/hr Linezolid (Zyvox 600mg/300ml D5w) 600 mg in 300 mls @ 300 mls/hr IVPB Q12 [facility] Last Admin: 09/23/16 09:29 Dose: 300 mls/hr Insulin Detemir (Levemir) 30 units SC HS [facility] Last Admin: 09/22/16 21:25 Dose: 30 units Insulin Human Lispro (Humalog) 8 units SC AC [facility] Last Admin: 09/23/16 13:05 Dose: 8 units Lidocaine (Lidoderm) 1 ea TD DAILY [facility] Last Admin: 09/23/16 09:20 Dose: 1 ea Nystatin (Mycostatin Oint) 1 applic TOP TID [facility] Last Admin: 09/23/16 08:25 Dose: 1 applic Ondansetron HCl (Zofran Inj) 4 mg IVP Q6 PRN PRN Reason: Nausea/Vomiting Last Admin: 09/19/16 10:26 Dose: 4 mg Pantoprazole Sodium (Protonix Ec Tab) 40 mg PO DAILY [facility] Last Admin: 09/23/16 09:19 Dose: 40 mg Sevelamer HCl (Renagel) 1,600 mg PO TID [facility] Last Admin: 09/23/16 13:06 Dose: 1,600 mg Topiramate (Topamax) 50 mg PO BID [facility] Last Admin: 09/23/16 09:19 Dose: 50 mg Vitamin B Complex/Vit C/Folic Acid (Nephro-Ajay) 1 tab PO DAILY [facility] Last Admin: 09/23/16 09:19 Dose: 1 tab - Labs Labs: 09/20/16 14:50 09/20/16 14:50 PT 16.5 SECONDS (9.6-11.2) H 08/28/16 16:11 INR 1.59 (0.92-1.08) H 08/28/16 16:11 APTT 38.7 SECONDS (23.3-32.5) H 08/28/16 16:11
--- NOTE | 2016-09-23 15:13 | PN ---
DATE: 09/23/2016 ROOM: 660 This is a 46-year-old female with recent uncontrolled type 2 insulin-requiring diabetes, now being fo llowed closely for metabolic management. Her glycemic levels are fluctuating, but much improved at this time and the latest chemistry showed a BUN of 41, sodium 137, potassium 4.1, chloride 97, CO2 26, glucose 158 and creatinine 7.1. Her gluc ose levels have ranged from 158-162 mg/dL. So at this time, we will continue the same basal and bolus insulin regimen as given with Levemir give n as 30 units subQ at bedtime daily and Humalog given as 8 units subQ t.i.d. before meals as given. We will also continue the IV antibiotics as given for management of right lower extremity osteomyelit is and cellulitis with a nonhealing neuropathic heel ulcer as noted. She has ongoing painful paresth esias of the right lower extremity from severe autonomic polyneuropathy and also underlying severe va sculopathy and peripheral arterial disease. We will follow. Irene Ambrose MD cc: [id number] TT: 09/23/2016 15:12:35 Confirmation # [id number] Dictation # [id number]
--- NOTE | 2016-09-23 17:39 | CP.PCM.PN ---
Subjective - Date & Time of Evaluation Date of Evaluation: 09/23/16 Time of Evaluation: 17:35 - Subjective Subjective: I D NOTE HAVE CONTINUED TO REVIEW AND DISCUSSED C AGREE C HER IN REGARDS TO LIKELIHOOD OF FUTURE SEPSIS WOULD CONTINUE SAME ANTIBIOTIC MANAGEMENT Objective - Vital Signs/Intake and Output Vital Signs (last 24 hours): Temp Pulse Resp BP Pulse Ox 98.5 F 128 H 21 139/70 93 L 09/23/16 16:36 09/23/16 16:36 09/23/16 16:36 09/23/16 16:36 09/23/16 16:36 - Medications Medications: Current Medications Acetaminophen (Tylenol 325mg Tab) 650 mg PO Q4 PRN PRN Reason: Fever >100.4 F Last Admin: 09/16/16 17:51 Dose: 650 mg Acetaminophen (Tylenol 325mg Tab) 650 mg PO Q4 PRN PRN Reason: Pain, moderate (4-7) Last Admin: 09/16/16 22:34 Dose: 650 mg Albuterol Sulfate (Albuterol 0.083% Inhal Barbie (2.5 Mg/3 Ml) Ud) 2.5 mg INH RQ4 PRN PRN Reason: Shortness of Breath Albuterol/Ipratropium (Duoneb 3 Mg/0.5 Mg (3 Ml) Ud) 3 ml INH RQ4 PRN PRN Reason: Shortness of Breath Apixaban (Eliquis) 5 mg PO BID [facility] PRN Reason: Protocol Last Admin: 09/23/16 09:20 Dose: 5 mg Aspirin (Ecotrin) 81 mg PO DAILY [facility] Last Admin: 09/23/16 09:19 Dose: 81 mg Atorvastatin Calcium (Lipitor) 40 mg PO DAILY [facility] Last Admin: 09/23/16 09:19 Dose: 40 mg Benzonatate (Tessalon Perles) 200 mg PO TID PRN PRN Reason: Cough Last Admin: 09/20/16 08:16 Dose: 200 mg Cinacalcet (Sensipar) 30 mg PO DAILY [facility] Last Admin: 09/23/16 09:19 Dose: 30 mg Epoetin Tha (Procrit) 20,000 unit IV MWF [facility] Last Admin: 09/20/16 15:50 Dose: 20,000 unit Ergocalciferol (Drisdol 50,000 Intl Units Cap) 1 cap PO Q7D [facility] Stop: 11/06/16 11:16 Last Admin: 09/18/16 14:34 Dose: 1 cap Fluconazole (Diflucan) 100 mg PO DAILY [facility] Last Admin: 09/23/16 09:19 Dose: 100 mg Guaifenesin/Codeine Phosphate (Robitussin W/Codeine) 10 ml PO Q6 PRN PRN Reason: Cough Last Admin: 09/22/16 21:25 Dose: 10 ml Hydrocortisone (Anusol-Hc) 1 applic [place] BID [facility] Last Admin: 09/23/16 09:00 Dose: 1 applic Hydromorphone HCl (Dilaudid) 2 mg PO Q6 PRN PRN Reason: Pain, severe (8-10) Last Admin: 09/23/16 11:45 Dose: 2 mg Meropenem 500 mg/ Sodium (Chloride) 100 mls @ 100 mls/hr IVPB DAILY [facility] Last Admin: 09/22/16 08:39 Dose: 100 mls/hr Amikacin Sulfate 250 mg/ (Sodium Chloride) 101 mls @ 100.609 mls/hr IVPB MWF [facility] Last Admin: 09/23/16 09:18 Dose: 100.609 mls/hr Piperacillin Sod/Tazobactam (Sod 2.25 gm/ Sodium Chloride) 100 mls @ 100 mls/ hr IVPB Q12 [facility] Last Admin: 09/23/16 09:17 Dose: 100 mls/hr Linezolid (Zyvox 600mg/300ml D5w) 600 mg in 300 mls @ 300 mls/hr IVPB Q12 [facility] Last Admin: 09/23/16 09:29 Dose: 300 mls/hr Insulin Detemir (Levemir) 30 units SC HS [facility] Last Admin: 09/22/16 21:25 Dose: 30 units Insulin Human Lispro (Humalog) 8 units SC AC [facility] Last Admin: 09/23/16 13:05 Dose: 8 units Lidocaine (Lidoderm) 1 ea TD DAILY [facility] Last Admin: 09/23/16 09:20 Dose: 1 ea Nystatin (Mycostatin Oint) 1 applic TOP TID [facility] Last Admin: 09/23/16 08:25 Dose: 1 applic Ondansetron HCl (Zofran Inj) 4 mg IVP Q6 PRN PRN Reason: Nausea/Vomiting Last Admin: 09/19/16 10:26 Dose: 4 mg Pantoprazole Sodium (Protonix Ec Tab) 40 mg PO DAILY [facility] Last Admin: 09/23/16 09:19 Dose: 40 mg Sevelamer HCl (Renagel) 1,600 mg PO TID [facility] Last Admin: 09/23/16 13:06 Dose: 1,600 mg Topiramate (Topamax) 50 mg PO BID [facility] Last Admin: 09/23/16 09:19 Dose: 50 mg Vitamin B Complex/Vit C/Folic Acid (Nephro-Ajay) 1 tab PO DAILY [facility] Last Admin: 09/23/16 09:19 Dose: 1 tab - Labs Labs: 09/20/16 14:50 09/20/16 14:50 PT 16.5 SECONDS (9.6-11.2) H 08/28/16 16:11 INR 1.59 (0.92-1.08) H 08/28/16 16:11 APTT 38.7 SECONDS (23.3-32.5) H 08/28/16 16:11
[2016-09-23] MEDS: HYDROmorphone 0.5 mg/0.5 ml ISec IVP PRN (17:51)
[2016-09-23] MEDS: Epoetin Alfa 20000 UNIT/ML Inj IV SCH (20:40)
--- NOTE | 2016-09-24 00:26 | CP.PCM.PN ---
Subjective - Date & Time of Evaluation Date of Evaluation: 09/23/16 Time of Evaluation: 21:15 - Subjective Subjective: No Syncopal or near Syncopal spells, no seizures, she is not complaining of Pain as before. Lab work drawn on 09/20 during the time of her chilling and shivering is not reported yet. Objective - Vital Signs/Intake and Output Vital Signs (last 24 hours): Temp Pulse Resp BP Pulse Ox 97.2 F L 100 H 20 157/97 H 97 09/24/16 00:18 09/24/16 00:18 09/24/16 00:18 09/24/16 00:18 09/24/16 00:18 - Medications Medications: Current Medications Acetaminophen (Tylenol 325mg Tab) 650 mg PO Q4 PRN PRN Reason: Fever >100.4 F Last Admin: 09/16/16 17:51 Dose: 650 mg Acetaminophen (Tylenol 325mg Tab) 650 mg PO Q4 PRN PRN Reason: Pain, moderate (4-7) Last Admin: 09/16/16 22:34 Dose: 650 mg Albuterol Sulfate (Albuterol 0.083% Inhal Barbie (2.5 Mg/3 Ml) Ud) 2.5 mg INH RQ4 PRN PRN Reason: Shortness of Breath Albuterol/Ipratropium (Duoneb 3 Mg/0.5 Mg (3 Ml) Ud) 3 ml INH RQ4 PRN PRN Reason: Shortness of Breath Apixaban (Eliquis) 5 mg PO BID [facility] PRN Reason: Protocol Last Admin: 09/23/16 18:25 Dose: Not Given Aspirin (Ecotrin) 81 mg PO DAILY [facility] Last Admin: 09/23/16 09:19 Dose: 81 mg Atorvastatin Calcium (Lipitor) 40 mg PO DAILY [facility] Last Admin: 09/23/16 09:19 Dose: 40 mg Benzonatate (Tessalon Perles) 200 mg PO TID PRN PRN Reason: Cough Last Admin: 09/20/16 08:16 Dose: 200 mg Cinacalcet (Sensipar) 30 mg PO DAILY [facility] Last Admin: 09/23/16 09:19 Dose: 30 mg Epoetin Tha (Procrit) 20,000 unit IV MWF [facility] Last Admin: 09/23/16 20:40 Dose: Not Given Ergocalciferol (Drisdol 50,000 Intl Units Cap) 1 cap PO Q7D [facility] Stop: 11/06/16 11:16 Last Admin: 09/18/16 14:34 Dose: 1 cap Fluconazole (Diflucan) 100 mg PO DAILY [facility] Last Admin: 09/23/16 09:19 Dose: 100 mg Guaifenesin/Codeine Phosphate (Robitussin W/Codeine) 10 ml PO Q6 PRN PRN Reason: Cough Last Admin: 09/22/16 21:25 Dose: 10 ml Hydrocortisone (Anusol-Hc) 1 applic [place] BID [facility] Last Admin: 09/23/16 18:25 Dose: 1 applic Hydromorphone HCl (Dilaudid) 2 mg PO Q6 PRN PRN Reason: Pain, severe (8-10) Last Admin: 09/23/16 11:45 Dose: 2 mg Hydromorphone HCl (Dilaudid) 1 mg IVP Q4 PRN PRN Reason: Pain, severe (8-10) Last Admin: 09/23/16 17:51 Dose: 1 mg Meropenem 500 mg/ Sodium (Chloride) 100 mls @ 100 mls/hr IVPB DAILY [facility] Last Admin: 09/22/16 08:39 Dose: 100 mls/hr Amikacin Sulfate 250 mg/ (Sodium Chloride) 101 mls @ 100.609 mls/hr IVPB MWF [facility] Last Admin: 09/23/16 09:18 Dose: 100.609 mls/hr Piperacillin Sod/Tazobactam (Sod 2.25 gm/ Sodium Chloride) 100 mls @ 100 mls/ hr IVPB Q12 [facility] Last Admin: 09/23/16 09:17 Dose: 100 mls/hr Linezolid (Zyvox 600mg/300ml D5w) 600 mg in 300 mls @ 300 mls/hr IVPB Q12 [facility] Last Admin: 09/23/16 09:29 Dose: 300 mls/hr Insulin Detemir (Levemir) 30 units SC HS [facility] Last Admin: 09/22/16 21:25 Dose: 30 units Insulin Human Lispro (Humalog) 8 units SC AC [facility] Last Admin: 09/23/16 18:25 Dose: Not Given Lidocaine (Lidoderm) 1 ea TD DAILY [facility] Last Admin: 09/23/16 09:20 Dose: 1 ea Nystatin (Mycostatin Oint) 1 applic TOP TID [facility] Last Admin: 09/23/16 17:00 Dose: Not Given Ondansetron HCl (Zofran Inj) 4 mg IVP Q6 PRN PRN Reason: Nausea/Vomiting Last Admin: 09/19/16 10:26 Dose: 4 mg Pantoprazole Sodium (Protonix Ec Tab) 40 mg PO DAILY [facility] Last Admin: 09/23/16 09:19 Dose: 40 mg Sevelamer HCl (Renagel) 1,600 mg PO TID [facility] Last Admin: 09/23/16 17:00 Dose: Not Given Topiramate (Topamax) 50 mg PO BID [facility] Last Admin: 09/23/16 17:00 Dose: Not Given Vitamin B Complex/Vit C/Folic Acid (Nephro-Ajay) 1 tab PO DAILY [facility] Last Admin: 09/23/16 09:19 Dose: 1 tab - Labs Labs: 09/20/16 14:50 09/20/16 14:50 PT 16.5 SECONDS (9.6-11.2) H 08/28/16 16:11 INR 1.59 (0.92-1.08) H 08/28/16 16:11 APTT 38.7 SECONDS (23.3-32.5) H 08/28/16 16:11 Assessment and Plan (1) Diabetes Status: Chronic (2) ESRD (end stage renal disease) Status: Chronic (3) Cellulitis of leg Status: Acute (4) Hyperlipidemia Status: Chronic (5) Back pain Status: Acute (6) Bacteremia due to Gram-negative bacteria Status: Acute (7) Diabetes mellitus type 2 with peripheral artery disease Status: Acute (8) PVD (peripheral vascular disease) Status: Acute
[2016-09-24] MEDS: Meropenem 500 MG in Sodium Chloride 0.9% 100 ML IVPB SCH (01:39)
[2016-09-24] MEDS: Insulin Detemir 100 Units/ml Inj SC SCH ×2 (01:43→21:19)
[2016-09-24] MEDS: HYDROmorphone 0.5 mg/0.5 ml ISec IVP PRN ×4 (01:47→21:16)
[2016-09-24] MEDS: Linezolid 600 mg in D5W 300 ml 600 MG/300 ML BAG IVPB SCH ×2 (04:15→16:09)
[2016-09-24] MEDS: Hydrocortisone 2.5% (Rectal) CREAM PR SCH ×2 (09:09→16:09)
[2016-09-24] MEDS: Lidocaine 5% Patch TD SCH (09:11)
[2016-09-24] MEDS: Nystatin Ointment TOP SCH ×3 (09:12→16:10)
[2016-09-24] MEDS: Pantoprazole 40 mg EC Tab PO SCH (09:12)
[2016-09-24] MEDS: Multivitamin Vitamin B Complex (Nephro-Vite) Tab PO SCH (09:12)
[2016-09-24] MEDS: Insulin Lispro (humaLOG) 100 Units/ml Inj SC SCH ×3 (09:14→16:10)
--- NOTE | 2016-09-24 09:45 | CP.PCM.PN ---
Subjective - Date & Time of Evaluation Date of Evaluation: 09/24/16 Time of Evaluation: 08:40 - Subjective Subjective: Patient seen today with attending Dr. Bonilla at request of Dr. Resendez for second opinion & assessment on right foot and leg wound and lower extremity limb salvage viability & potential for healing. Objective - Vital Signs/Intake and Output Vital Signs (last 24 hours): Temp Pulse Resp BP Pulse Ox 99.2 F 122 H 20 135/68 95 09/24/16 08:02 09/24/16 08:02 09/24/16 08:02 09/24/16 08:02 09/24/16 08:02 - Medications Medications: Current Medications Acetaminophen (Tylenol 325mg Tab) 650 mg PO Q4 PRN PRN Reason: Fever >100.4 F Last Admin: 09/16/16 17:51 Dose: 650 mg Acetaminophen (Tylenol 325mg Tab) 650 mg PO Q4 PRN PRN Reason: Pain, moderate (4-7) Last Admin: 09/16/16 22:34 Dose: 650 mg Albuterol Sulfate (Albuterol 0.083% Inhal Barbie (2.5 Mg/3 Ml) Ud) 2.5 mg INH RQ4 PRN PRN Reason: Shortness of Breath Albuterol/Ipratropium (Duoneb 3 Mg/0.5 Mg (3 Ml) Ud) 3 ml INH RQ4 PRN PRN Reason: Shortness of Breath Apixaban (Eliquis) 5 mg PO BID [facility] PRN Reason: Protocol Last Admin: 09/24/16 09:11 Dose: 5 mg Aspirin (Ecotrin) 81 mg PO DAILY [facility] Last Admin: 09/24/16 09:10 Dose: 81 mg Atorvastatin Calcium (Lipitor) 40 mg PO DAILY [facility] Last Admin: 09/24/16 09:11 Dose: 40 mg Benzonatate (Tessalon Perles) 200 mg PO TID PRN PRN Reason: Cough Last Admin: 09/20/16 08:16 Dose: 200 mg Cinacalcet (Sensipar) 30 mg PO DAILY [facility] Last Admin: 09/24/16 09:13 Dose: 30 mg Epoetin Tha (Procrit) 20,000 unit IV MWF [facility] Last Admin: 09/23/16 20:40 Dose: Not Given Ergocalciferol (Drisdol 50,000 Intl Units Cap) 1 cap PO Q7D [facility] Stop: 11/06/16 11:16 Last Admin: 09/18/16 14:34 Dose: 1 cap Fluconazole (Diflucan) 100 mg PO DAILY [facility] Last Admin: 09/24/16 09:10 Dose: 100 mg Guaifenesin/Codeine Phosphate (Robitussin W/Codeine) 10 ml PO Q6 PRN PRN Reason: Cough Last Admin: 09/22/16 21:25 Dose: 10 ml Hydrocortisone (Anusol-Hc) 1 applic [place] BID [facility] Last Admin: 09/24/16 09:09 Dose: 1 applic Hydromorphone HCl (Dilaudid) 2 mg PO Q6 PRN PRN Reason: Pain, severe (8-10) Last Admin: 09/23/16 11:45 Dose: 2 mg Hydromorphone HCl (Dilaudid) 1 mg IVP Q4 PRN PRN Reason: Pain, severe (8-10) Last Admin: 09/24/16 09:29 Dose: 1 mg Meropenem 500 mg/ Sodium (Chloride) 100 mls @ 100 mls/hr IVPB DAILY [facility] Last Admin: 09/24/16 01:39 Dose: 100 mls/hr Amikacin Sulfate 250 mg/ (Sodium Chloride) 101 mls @ 100.609 mls/hr IVPB MWF [facility] Last Admin: 09/23/16 09:18 Dose: 100.609 mls/hr Piperacillin Sod/Tazobactam (Sod 2.25 gm/ Sodium Chloride) 100 mls @ 100 mls/ hr IVPB Q12 [facility] Last Admin: 09/24/16 02:59 Dose: 100 mls/hr Linezolid (Zyvox 600mg/300ml D5w) 600 mg in 300 mls @ 300 mls/hr IVPB Q12 [facility] Last Admin: 09/24/16 04:15 Dose: 300 mls/hr Insulin Detemir (Levemir) 30 units SC HS [facility] Last Admin: 09/24/16 01:43 Dose: Not Given Insulin Human Lispro (Humalog) 8 units SC AC [facility] Last Admin: 09/24/16 09:14 Dose: 8 units Lidocaine (Lidoderm) 1 ea TD DAILY [facility] Last Admin: 09/24/16 09:11 Dose: 1 ea Nystatin (Mycostatin Oint) 1 applic TOP TID [facility] Last Admin: 09/24/16 09:12 Dose: 1 applic Ondansetron HCl (Zofran Inj) 4 mg IVP Q6 PRN PRN Reason: Nausea/Vomiting Last Admin: 09/19/16 10:26 Dose: 4 mg Pantoprazole Sodium (Protonix Ec Tab) 40 mg PO DAILY [facility] Last Admin: 09/24/16 09:12 Dose: 40 mg Sevelamer HCl (Renagel) 1,600 mg PO TID [facility] Last Admin: 09/24/16 09:10 Dose: 1,600 mg Topiramate (Topamax) 50 mg PO BID [facility] Last Admin: 09/24/16 09:12 Dose: 50 mg Vitamin B Complex/Vit C/Folic Acid (Nephro-Ajay) 1 tab PO DAILY [facility] Last Admin: 09/24/16 09:12 Dose: 1 tab - Labs Labs: 09/20/16 14:50 09/20/16 14:50 PT 16.5 SECONDS (9.6-11.2) H 08/28/16 16:11 INR 1.59 (0.92-1.08) H 08/28/16 16:11 APTT 38.7 SECONDS (23.3-32.5) H 08/28/16 16:11
--- NOTE | 2016-09-24 11:23 | CP.PCM.PN ---
Subjective - Date & Time of Evaluation Date of Evaluation: 09/24/16 Time of Evaluation: 11:17 - Subjective Subjective: Last night after patient was transferred back to bed from a chair and started on hemodialysis, she had such pain in her right foot/leg that she was crying. The nurse called me for an iv Dilaudid order, which was given. There was relief of pain and no itching or rashes. Patient is now sitting up in a chair. The nurse gave her po Dilaudid so as to relieve the pain associated with getting out of bed via a Maurice lift. The right lower leg is swollen and hot. The toes are gangrenous and cold. Her temperature was 99.2 deg. earlier. The 09/20/16 blood cultures were apparently retrieved at [facility] lab and are not growing any bacteria. Fungal cultures are pending. The culture of the heel which I did on 09/22 is not growning any bacteria... ??? I am dubious about that results ??? Physical therapy is proceeding - with the goal of strengthening the left leg and upper extremities. According to Cleveland Mckeon, Dir of Rehab, patient is too weak to begin working on sliding board techniques. Also, she has such severe pain in the right ankle area, that moving her is very difficult. No recent labs - will order blood work to be done by dialysis nurse tomorrow. 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 Patient has been seen by Dr. Bonilla, podiatric surgeon, for a second opinion regarding the right lower leg/foot viability and potential for healing. A meeting of all physicians for such planning is to take place on 09/26. Objective - Vital Signs/Intake and Output Vital Signs (last 24 hours): Temp Pulse Resp BP Pulse Ox 99.2 F 122 H 20 135/68 95 09/24/16 08:02 09/24/16 08:02 09/24/16 08:02 09/24/16 08:02 09/24/16 08:02 - Medications Medications: Current Medications Acetaminophen (Tylenol 325mg Tab) 650 mg PO Q4 PRN PRN Reason: Fever >100.4 F Last Admin: 09/16/16 17:51 Dose: 650 mg Acetaminophen (Tylenol 325mg Tab) 650 mg PO Q4 PRN PRN Reason: Pain, moderate (4-7) Last Admin: 09/16/16 22:34 Dose: 650 mg Albuterol Sulfate (Albuterol 0.083% Inhal Barbie (2.5 Mg/3 Ml) Ud) 2.5 mg INH RQ4 PRN PRN Reason: Shortness of Breath Albuterol/Ipratropium (Duoneb 3 Mg/0.5 Mg (3 Ml) Ud) 3 ml INH RQ4 PRN PRN Reason: Shortness of Breath Apixaban (Eliquis) 5 mg PO BID [facility] PRN Reason: Protocol Last Admin: 09/24/16 09:11 Dose: 5 mg Aspirin (Ecotrin) 81 mg PO DAILY [facility] Last Admin: 09/24/16 09:10 Dose: 81 mg Atorvastatin Calcium (Lipitor) 40 mg PO DAILY [facility] Last Admin: 09/24/16 09:11 Dose: 40 mg Benzonatate (Tessalon Perles) 200 mg PO TID PRN PRN Reason: Cough Last Admin: 09/20/16 08:16 Dose: 200 mg Cinacalcet (Sensipar) 30 mg PO DAILY [facility] Last Admin: 09/24/16 09:13 Dose: 30 mg Epoetin Tha (Procrit) 20,000 unit IV MWF [facility] Last Admin: 09/23/16 20:40 Dose: Not Given Ergocalciferol (Drisdol 50,000 Intl Units Cap) 1 cap PO Q7D [facility] Stop: 11/06/16 11:16 Last Admin: 09/18/16 14:34 Dose: 1 cap Fluconazole (Diflucan) 100 mg PO DAILY [facility] Last Admin: 09/24/16 09:10 Dose: 100 mg Guaifenesin/Codeine Phosphate (Robitussin W/Codeine) 10 ml PO Q6 PRN PRN Reason: Cough Last Admin: 09/22/16 21:25 Dose: 10 ml Hydrocortisone (Anusol-Hc) 1 applic [place] BID [facility] Last Admin: 09/24/16 09:09 Dose: 1 applic Hydromorphone HCl (Dilaudid) 2 mg PO Q6 PRN PRN Reason: Pain, severe (8-10) Last Admin: 09/23/16 11:45 Dose: 2 mg Hydromorphone HCl (Dilaudid) 1 mg IVP Q4 PRN PRN Reason: Pain, severe (8-10) Last Admin: 09/24/16 09:29 Dose: 1 mg Meropenem 500 mg/ Sodium (Chloride) 100 mls @ 100 mls/hr IVPB DAILY [facility] Last Admin: 09/24/16 01:39 Dose: 100 mls/hr Amikacin Sulfate 250 mg/ (Sodium Chloride) 101 mls @ 100.609 mls/hr IVPB MWF [facility] Last Admin: 09/23/16 09:18 Dose: 100.609 mls/hr Piperacillin Sod/Tazobactam (Sod 2.25 gm/ Sodium Chloride) 100 mls @ 100 mls/ hr IVPB Q12 [facility] Last Admin: 09/24/16 02:59 Dose: 100 mls/hr Linezolid (Zyvox 600mg/300ml D5w) 600 mg in 300 mls @ 300 mls/hr IVPB Q12 [facility] Last Admin: 09/24/16 04:15 Dose: 300 mls/hr Insulin Detemir (Levemir) 30 units SC HS [facility] Last Admin: 09/24/16 01:43 Dose: Not Given Insulin Human Lispro (Humalog) 8 units SC AC [facility] Last Admin: 09/24/16 09:14 Dose: 8 units Lidocaine (Lidoderm) 1 ea TD DAILY [facility] Last Admin: 09/24/16 09:11 Dose: 1 ea Nystatin (Mycostatin Oint) 1 applic TOP TID [facility] Last Admin: 09/24/16 09:12 Dose: 1 applic Ondansetron HCl (Zofran Inj) 4 mg IVP Q6 PRN PRN Reason: Nausea/Vomiting Last Admin: 09/19/16 10:26 Dose: 4 mg Pantoprazole Sodium (Protonix Ec Tab) 40 mg PO DAILY [facility] Last Admin: 09/24/16 09:12 Dose: 40 mg Sevelamer HCl (Renagel) 1,600 mg PO TID [facility] Last Admin: 09/24/16 09:10 Dose: 1,600 mg Topiramate (Topamax) 50 mg PO BID [facility] Last Admin: 09/24/16 09:12 Dose: 50 mg Vitamin B Complex/Vit C/Folic Acid (Nephro-Jaay) 1 tab PO DAILY [facility] Last Admin: 09/24/16 09:12 Dose: 1 tab - Labs Labs: 09/20/16 14:50 09/20/16 14:50 PT 16.5 SECONDS (9.6-11.2) H 08/28/16 16:11 INR 1.59 (0.92-1.08) H 08/28/16 16:11 APTT 38.7 SECONDS (23.3-32.5) H 08/28/16 16:11 - Constitutional Appears: No Acute Distress - Head Exam Head Exam: NORMAL INSPECTION - Eye Exam Eye Exam: Normal appearance - ENT Exam ENT Exam: Mucous Membranes Moist - Neck Exam Neck Exam: Normal Inspection Additional comments: Right Permacath intact. - Respiratory Exam Respiratory Exam: Clear to Ausculation Bilateral, NORMAL BREATHING PATTERN - Cardiovascular Exam Cardiovascular Exam: REGULAR RHYTHM, +S1, +S2 - GI/Abdominal Exam GI & Abdominal Exam: Soft, Normal Bowel Sounds Additional comments: PICC line right femoral vein is intact. - Extremities Exam Additional comments: Both hands are warm and those digits that are present are warm. There are no open lesions. She is wearing the Left BK prosthesis as part of the physical therapy regimen. Right lower leg almost to the knee is edematous and very warm. There is marked tenderness at the level of the ankle. The foot is dressed. The right toes are clearly gangrenous and cold. There is no palpable DP pulse. - Back Exam Back Exam: NORMAL INSPECTION - Neurological Exam Neurological Exam: Abnormal Gait, Alert, Awake, Oriented x3 Additional comments: Non-ambulatory. - Skin Additional comments: Allevyn dressing buttock area. Assessment and Plan (1) Osteomyelitis of ankle or foot Assessment & Plan: No improvement, amputation is recommended along with prolonged IV antibiotic therapy. See subjective. Status: Acute (2) ESRD (end stage renal disease) on dialysis Status: Chronic (3) DM type 2 (diabetes mellitus, type 2) Status: Chronic (4) Coagulopathy Status: Chronic (5) Peripheral arterial occlusive disease Status: Chronic (6) Pneumonia Status: Acute (7) Decubitus ulcer of buttock, stage 2 Status: Acute
--- NOTE | 2016-09-24 15:27 | PN ---
DATE: 09/24/2016 ROOM: 660 This is a 46-year-old female with recent uncontrolled type 2 insulin-requiring diabetes, now being fo llowed closely for metabolic management. Her glycemic levels continue to improve as her oral intake has also improved as noted. The latest chemistry showed a BUN of 41, sodium 137, potassium 4.1, chloride 97, CO2 26, glucose 158 and creatinine 7.1. So at this time, we will continue the same basal and bolus insulin regimen as given with Levemir give n as 30 units subQ at bedtime daily and Humalog given as 8 units subQ t.i.d. before meals as ordered. We will titrate incrementally as indicated to optimize metabolic control. We will follow. Irene Ambrose MD cc: [id number] TT: 09/24/2016 15:27:04 Confirmation # [id number] Dictation # [id number] en
[2016-09-25] MEDS: Meropenem 500 MG in Sodium Chloride 0.9% 100 ML IVPB SCH (01:00)
[2016-09-25] MEDS: HYDROmorphone 0.5 mg/0.5 ml ISec IVP PRN ×4 (02:54→22:06)
[2016-09-25] MEDS: Linezolid 600 mg in D5W 300 ml 600 MG/300 ML BAG IVPB SCH ×2 (03:14→17:05)
--- NOTE | 2016-09-25 08:47 | CP.PCM.PN ---
<Milana Perez - Last Filed: 09/25/16 09:52> Subjective - Date & Time of Evaluation Date of Evaluation: 09/25/16 Time of Evaluation: 08:47 - Subjective Subjective: 46 year old female was seen resting at bedside regarding right heel eschar. Patient states that she does have pain to the right foot and ankle. She states that she is progressing well in physical therapy. She denies any acute events overnight. Denies n/v/f/c/sob/cp. Objective - Vital Signs/Intake and Output Vital Signs (last 24 hours): Temp Pulse Resp BP Pulse Ox 100.7 F H 102 H 20 102/58 L 98 09/25/16 07:57 09/25/16 07:57 09/25/16 07:57 09/25/16 07:57 09/25/16 07:57 - Medications Medications: Current Medications Acetaminophen (Tylenol 325mg Tab) 650 mg PO Q4 PRN PRN Reason: Fever >100.4 F Last Admin: 09/16/16 17:51 Dose: 650 mg Acetaminophen (Tylenol 325mg Tab) 650 mg PO Q4 PRN PRN Reason: Pain, moderate (4-7) Last Admin: 09/16/16 22:34 Dose: 650 mg Albuterol Sulfate (Albuterol 0.083% Inhal Barbie (2.5 Mg/3 Ml) Ud) 2.5 mg INH RQ4 PRN PRN Reason: Shortness of Breath Albuterol/Ipratropium (Duoneb 3 Mg/0.5 Mg (3 Ml) Ud) 3 ml INH RQ4 PRN PRN Reason: Shortness of Breath Apixaban (Eliquis) 5 mg PO BID [facility] PRN Reason: Protocol Last Admin: 09/24/16 16:09 Dose: 5 mg Aspirin (Ecotrin) 81 mg PO DAILY [facility] Last Admin: 09/24/16 09:10 Dose: 81 mg Atorvastatin Calcium (Lipitor) 40 mg PO DAILY [facility] Last Admin: 09/24/16 09:11 Dose: 40 mg Benzonatate (Tessalon Perles) 200 mg PO TID PRN PRN Reason: Cough Last Admin: 09/20/16 08:16 Dose: 200 mg Cinacalcet (Sensipar) 30 mg PO DAILY [facility] Last Admin: 09/24/16 09:13 Dose: 30 mg Epoetin Tha (Procrit) 20,000 unit IV [facility] Last Admin: 09/23/16 20:40 Dose: Not Given Ergocalciferol (Drisdol 50,000 Intl Units Cap) 1 cap PO Q7D [facility] Stop: 11/06/16 11:16 Last Admin: 09/18/16 14:34 Dose: 1 cap Fluconazole (Diflucan) 100 mg PO DAILY [facility] Last Admin: 09/24/16 09:10 Dose: 100 mg Guaifenesin/Codeine Phosphate (Robitussin W/Codeine) 10 ml PO Q6 PRN PRN Reason: Cough Last Admin: 09/22/16 21:25 Dose: 10 ml Hydrocortisone (Anusol-Hc) 1 applic [place] BID [facility] Last Admin: 09/24/16 16:09 Dose: 1 applic Hydromorphone HCl (Dilaudid) 2 mg PO Q6 PRN PRN Reason: Pain, severe (8-10) Last Admin: 09/23/16 11:45 Dose: 2 mg Hydromorphone HCl (Dilaudid) 1 mg IVP Q4 PRN PRN Reason: Pain, severe (8-10) Last Admin: 09/25/16 02:54 Dose: 1 mg Amikacin Sulfate 250 mg/ (Sodium Chloride) 101 mls @ 100.609 mls/hr IVPB [facility] Last Admin: 09/23/16 09:18 Dose: 100.609 mls/hr Linezolid (Zyvox 600mg/300ml D5w) 600 mg in 300 mls @ 300 mls/hr IVPB Q12@0400, 1600 [facility] Last Admin: 09/25/16 03:14 Dose: 300 mls/hr Meropenem 500 mg/ Sodium (Chloride) 100 mls @ 100 mls/hr IVPB DAILY@0100 [facility] Last Admin: 09/25/16 01:00 Dose: 100 mls/hr Piperacillin Sod/Tazobactam (Sod 2.25 gm/ Sodium Chloride) 100 mls @ 100 mls/ hr IVPB Q12@0200,1400 [facility] Last Admin: 09/25/16 02:02 Dose: 100 mls/hr Insulin Detemir (Levemir) 30 units SC [facility] Last Admin: 09/24/16 21:19 Dose: 30 units Insulin Human Lispro (Humalog) 8 units SC AC [facility] Last Admin: 09/24/16 16:10 Dose: 8 units Lidocaine (Lidoderm) 1 ea TD DAILY [facility] Last Admin: 09/24/16 09:11 Dose: 1 ea Nystatin (Mycostatin Oint) 1 applic TOP TID [facility] Last Admin: 09/24/16 16:10 Dose: 1 applic Ondansetron HCl (Zofran Inj) 4 mg IVP Q6 PRN PRN Reason: Nausea/Vomiting Last Admin: 09/19/16 10:26 Dose: 4 mg Pantoprazole Sodium (Protonix Ec Tab) 40 mg PO DAILY [facility] Last Admin: 09/24/16 09:12 Dose: 40 mg Sevelamer HCl (Renagel) 1,600 mg PO TID [facility] Last Admin: 09/24/16 16:11 Dose: 1,600 mg Topiramate (Topamax) 50 mg PO BID [facility] Last Admin: 09/24/16 16:11 Dose: 50 mg Vitamin B Complex/Vit C/Folic Acid (Nephro-Ajay) 1 tab PO DAILY [facility] Last Admin: 09/24/16 09:12 Dose: 1 tab - Labs Labs: 09/20/16 14:50 09/20/16 14:50 PT 16.5 SECONDS (9.6-11.2) H 08/28/16 16:11 INR 1.59 (0.92-1.08) H 08/28/16 16:11 APTT 38.7 SECONDS (23.3-32.5) H 08/28/16 16:11 - Constitutional Appears: Non-toxic, No Acute Distress, Chronically Ill - Extremities Exam Additional comments: Right lower extremity focused exam: VASC: DP and PT pulses non-palpable, capillary refill < 5 sec to digits, Mild edema noted to anterior aspect of leg and dorsum of foot, signs decreased, edema with near full return of relaxed skin tension lines. Minor leg callor present, absent erythema. NEURO: Gross pedal sensation is diminished DERM: Superficial dry eschar noted to plantar aspect of heel, with fibrotic tissue noted along eschar. Moderate increased warmth noted to distal leg and ankle. No local or ascending erythema, no acute signs infection. Eschar itself soft, no fluctuance. ORTHO: No tenderness along palpation of muscle belly course of gastrocnemius, peroneals. Pain along Distal 1/3 of Achilles tendon. Moderate tenderness noted along distal 6cm course of tibialis anterior muscle proximal to ankle joint. Tenderness noted to lateral aspect of ankle, at apex of varus deformity. Severe varus deformity with dislocation of ankle noted. - Neurological Exam Neurological Exam: Alert, Awake, Oriented x3 - Psychiatric Exam Psychiatric exam: Normal Affect, Normal Mood Assessment and Plan - Assessment and Plan (Free Text) Assessment: 46 yo female patient with pmhx of HTN, ESRD (on dialysis), coagulopathy, DM, Charcot Arthropathy of Right foot PVD w/ dry eschar of right heel, symptomatic myositis & tendonitis. Plan: Patient examined and evaluated Discussed in detail with attending. Medical provider, consulting service physician notes, & Physical therapy evaluation reviewed. Dr. Gordon made aware of all pertinent changes and findings. Chart, labs, vitals reviewed; afebrile Re-dressing change with wet to dry sterile gauze, and DSD. Multipodus boot to be worn at all times while in bed Continue IV abx per ID Goal of physical therapy should be continued re-conditioning with transfer training and leg strengthening. Patient to wear [employer] to RLE during PT Note that aggressive physical activity to a Charcot joint can exacerbate symptoms returning to acute phase Charcot which presents as painful, swollen, and erythematous. Podiatry will continue to follow patient while in house <Cyrus Gordon - Last Filed: 09/25/16 13:57> Objective - Vital Signs/Intake and Output Vital Signs (last 24 hours): Temp Pulse Resp BP Pulse Ox 98.7 F 102 H 20 102/58 L 98 09/25/16 10:20 09/25/16 07:57 09/25/16 07:57 09/25/16 07:57 09/25/16 07:57 - Medications Medications: Current Medications Acetaminophen (Tylenol 325mg Tab) 650 mg PO Q4 PRN PRN Reason: Fever >100.4 F Last Admin: 09/25/16 09:20 Dose: 650 mg Acetaminophen (Tylenol 325mg Tab) 650 mg PO Q4 PRN PRN Reason: Pain, moderate (4-7) Last Admin: 09/16/16 22:34 Dose: 650 mg Albuterol Sulfate (Albuterol 0.083% Inhal Barbie (2.5 Mg/3 Ml) Ud) 2.5 mg INH RQ4 PRN PRN Reason: Shortness of Breath Albuterol/Ipratropium (Duoneb 3 Mg/0.5 Mg (3 Ml) Ud) 3 ml INH RQ4 PRN PRN Reason: Shortness of Breath Apixaban (Eliquis) 5 mg PO BID [facility] PRN Reason: Protocol Last Admin: 09/25/16 13:25 Dose: 5 mg Aspirin (Ecotrin) 81 mg PO DAILY [facility] Last Admin: 09/25/16 13:22 Dose: 81 mg Atorvastatin Calcium (Lipitor) 40 mg PO DAILY [facility] Last Admin: 09/25/16 13:26 Dose: 40 mg Benzonatate (Tessalon Perles) 200 mg PO TID PRN PRN Reason: Cough Last Admin: 09/20/16 08:16 Dose: 200 mg Cinacalcet (Sensipar) 30 mg PO DAILY [facility] Last Admin: 09/25/16 13:23 Dose: 30 mg Epoetin Tha (Procrit) 20,000 unit IV MWF [facility] Last Admin: 09/25/16 13:22 Dose: 20,000 unit Ergocalciferol (Drisdol 50,000 Intl Units Cap) 1 cap PO Q7D [facility] Stop: 11/06/16 11:16 Last Admin: 09/25/16 13:24 Dose: 1 cap Fluconazole (Diflucan) 100 mg PO DAILY [facility] Last Admin: 09/25/16 13:25 Dose: 100 mg Guaifenesin/Codeine Phosphate (Robitussin W/Codeine) 10 ml PO Q6 PRN PRN Reason: Cough Last Admin: 09/22/16 21:25 Dose: 10 ml Hydrocortisone (Anusol-Hc) 1 applic [place] BID [facility] Last Admin: 09/25/16 08:54 Dose: 1 applic Hydromorphone HCl (Dilaudid) 2 mg PO Q6 PRN PRN Reason: Pain, severe (8-10) Last Admin: 09/23/16 11:45 Dose: 2 mg Hydromorphone HCl (Dilaudid) 1 mg IVP Q4 PRN PRN Reason: Pain, severe (8-10) Last Admin: 09/25/16 08:55 Dose: 1 mg Amikacin Sulfate 250 mg/ (Sodium Chloride) 101 mls @ 100.609 mls/hr IVPB MWF [facility] Last Admin: 09/25/16 13:12 Dose: 100.609 mls/hr Linezolid (Zyvox 600mg/300ml D5w) 600 mg in 300 mls @ 300 mls/hr IVPB Q12@0400, 1600 [facility] Last Admin: 09/25/16 03:14 Dose: 300 mls/hr Meropenem 500 mg/ Sodium (Chloride) 100 mls @ 100 mls/hr IVPB DAILY@0100 [facility] Last Admin: 09/25/16 01:00 Dose: 100 mls/hr Piperacillin Sod/Tazobactam (Sod 2.25 gm/ Sodium Chloride) 100 mls @ 100 mls/ hr IVPB Q12@0200,1400 [facility] Last Admin: 09/25/16 13:26 Dose: 100 mls/hr Insulin Detemir (Levemir) 30 units SC HS [facility] Last Admin: 09/24/16 21:19 Dose: 30 units Insulin Human Lispro (Humalog) 8 units SC AC [facility] Last Admin: 09/25/16 13:25 Dose: 8 units Lidocaine (Lidoderm) 1 ea TD DAILY [facility] Last Admin: 09/25/16 08:59 Dose: 1 ea Nystatin (Mycostatin Oint) 1 applic TOP TID [facility] Last Admin: 09/25/16 13:23 Dose: 1 applic Ondansetron HCl (Zofran Inj) 4 mg IVP Q6 PRN PRN Reason: Nausea/Vomiting Last Admin: 09/19/16 10:26 Dose: 4 mg Pantoprazole Sodium (Protonix Ec Tab) 40 mg PO DAILY [facility] Last Admin: 09/25/16 13:22 Dose: 40 mg Sevelamer HCl (Renagel) 1,600 mg PO TID [facility] Last Admin: 09/25/16 13:23 Dose: 1,600 mg Topiramate (Topamax) 50 mg PO BID [facility] Last Admin: 09/25/16 13:24 Dose: 50 mg Vitamin B Complex/Vit C/Folic Acid (Nephro-Ajay) 1 tab PO DAILY [facility] Last Admin: 09/25/16 13:24 Dose: 1 tab - Labs Labs: 09/20/16 14:50 09/20/16 14:50 PT 16.5 SECONDS (9.6-11.2) H 08/28/16 16:11 INR 1.59 (0.92-1.08) H 08/28/16 16:11 APTT 38.7 SECONDS (23.3-32.5) H 08/28/16 16:11 Assessment and Plan - Assessment and Plan (Free Text) Plan: Agree with above note. Ms Leo as noted does not want to have BKA. Spoke to Dr. Bonilla and appreciate and agree with his assessment. Last foot cultures were no growth. Understand PMD concern in regards to this patient, however being that the leg is stable with a campo walker and she is proving that she is able to partake in physical therapy isn't it prudent to not subject this patient to a surgical procedure at this time.
[2016-09-25] MEDS: Hydrocortisone 2.5% (Rectal) CREAM PR SCH ×2 (08:54→17:02)
[2016-09-25] MEDS: Insulin Lispro (humaLOG) 100 Units/ml Inj SC SCH ×3 (08:58→17:03)
[2016-09-25] MEDS: Lidocaine 5% Patch TD SCH (08:59)
[2016-09-25] MEDS: Nystatin Ointment TOP SCH ×3 (09:01→17:04)
--- NOTE | 2016-09-25 10:47 | CP.PCM.PN ---
Subjective - Date & Time of Evaluation Date of Evaluation: 09/25/16 Time of Evaluation: 10:43 - Subjective Subjective: Patient seen while undergoing hemodialysis, which limits examination. Good pressures indicate the Permacath is functioning well. She has fever at 100.7 deg. Rapid pulse, BP OK. STAT blood cultures via Permacath ordered for aerobic, anaerobic, and fungal cultures. She had pain in right foot last night and has marked tenderness at right ankle this morning. The right lower leg remains swollen and excessively warm. Menses seem to be subsiding. No chest pain or dyspnea. Bowels movements firmer since decreaseing Nepro to 1 can/day. Glucoses fairly controlled on regimen established by Dr. Ambrose. Less cough. CONFLICTING INFORMATION: PHYSICAL THERAPY WAS TOLD BY DPM NOT TO PUT WEIGHT ON RIGHT FOOT/LEG. TODAY, DR. CISNEROS FROM PODIATRY SAYS PATIENT SHOULD WEAR THE BOOD/BRACE ([id number]) ON THE RIGHT LEG DURING THERAPY. THIS WILL NEED TO BE CLARIFIED... I spoke with Dr. Perez who will call Dr. Gordon and will write orders. Objective - Vital Signs/Intake and Output Vital Signs (last 24 hours): Temp Pulse Resp BP Pulse Ox 100.7 F H 102 H 20 102/58 L 98 09/25/16 09:20 09/25/16 07:57 09/25/16 07:57 09/25/16 07:57 09/25/16 07:57 - Medications Medications: Current Medications Acetaminophen (Tylenol 325mg Tab) 650 mg PO Q4 PRN PRN Reason: Fever >100.4 F Last Admin: 09/25/16 09:20 Dose: 650 mg Acetaminophen (Tylenol 325mg Tab) 650 mg PO Q4 PRN PRN Reason: Pain, moderate (4-7) Last Admin: 09/16/16 22:34 Dose: 650 mg Albuterol Sulfate (Albuterol 0.083% Inhal Barbie (2.5 Mg/3 Ml) Ud) 2.5 mg INH RQ4 PRN PRN Reason: Shortness of Breath Albuterol/Ipratropium (Duoneb 3 Mg/0.5 Mg (3 Ml) Ud) 3 ml INH RQ4 PRN PRN Reason: Shortness of Breath Apixaban (Eliquis) 5 mg PO BID [facility] PRN Reason: Protocol Last Admin: 09/24/16 16:09 Dose: 5 mg Aspirin (Ecotrin) 81 mg PO DAILY [facility] [place] Last Admin: 09/24/16 09:10 Dose: 81 mg Atorvastatin Calcium (Lipitor) 40 mg PO DAILY [facility] [place] Last Admin: 09/24/16 09:11 Dose: 40 mg Benzonatate (Tessalon Perles) 200 mg PO TID PRN PRN Reason: Cough Last Admin: 09/20/16 08:16 Dose: 200 mg Cinacalcet (Sensipar) 30 mg PO DAILY [facility] [place] Last Admin: 09/24/16 09:13 Dose: 30 mg Epoetin Tha (Procrit) [facility] Last Admin: 09/23/16 20:40 Dose: Not Given Ergocalciferol (Drisdol 50,000 Intl Units Cap) 1 cap PO Q7D [facility] Stop: 11/06/16 11:16 Last Admin: 09/18/16 14:34 Dose: 1 cap Fluconazole (Diflucan) 100 mg PO DAILY [facility] [place] Last Admin: 09/24/16 09:10 Dose: 100 mg Guaifenesin/Codeine Phosphate (Robitussin W/Codeine) 10 ml PO Q6 PRN PRN Reason: Cough Last Admin: 09/22/16 21:25 Dose: 10 ml Hydrocortisone (Anusol-Hc) 1 applic NE BID [facility] Last Admin: 09/25/16 08:54 Dose: 1 applic Hydromorphone HCl (Dilaudid) 2 mg PO Q6 PRN PRN Reason: Pain, severe (8-10) Last Admin: 09/23/16 11:45 Dose: 2 mg Hydromorphone HCl (Dilaudid) 1 mg IVP Q4 PRN PRN Reason: Pain, severe (8-10) Last Admin: 09/25/16 08:55 Dose: 1 mg Amikacin Sulfate 250 mg/ (Sodium Chloride) 101 mls @ 100.609 mls/hr [place] [facility] [place] Last Admin: 09/23/16 09:18 Dose: 100.609 mls/hr Linezolid (Zyvox 600mg/300ml D5w) 600 mg in 300 mls @ 300 mls/hr IVPB Q12@0400, 1600 [facility] [place] Last Admin: 09/25/16 03:14 Dose: 300 mls/hr Meropenem 500 mg/ Sodium (Chloride) 100 mls @ 100 mls/hr IVPB DAILY@0100 [facility] [place] Last Admin: 09/25/16 01:00 Dose: 100 mls/hr Piperacillin Sod/Tazobactam (Sod 2.25 gm/ Sodium Chloride) 100 mls @ 100 mls/ hr IVPB Q12@0200,1400 [facility] [place] Last Admin: 09/25/16 02:02 Dose: 100 mls/hr Insulin Detemir (Levemir) 30 units SC HS [facility] [place] Last Admin: 09/24/16 21:19 Dose: 30 units Insulin Human Lispro (Humalog) 8 units SC AC [facility] [place] Last Admin: 09/25/16 08:58 Dose: Not Given Lidocaine (Lidoderm) 1 ea TD DAILY [facility] [place] Last Admin: 09/25/16 08:59 Dose: 1 ea Nystatin (Mycostatin Oint) 1 applic TOP TID [facility] [place] Last Admin: 09/25/16 09:01 Dose: 1 applic Ondansetron HCl (Zofran Inj) 4 mg IVP Q6 PRN PRN Reason: Nausea/Vomiting Last Admin: 09/19/16 10:26 Dose: 4 mg Pantoprazole Sodium (Protonix Ec Tab) 40 mg PO DAILY [facility] [place] Last Admin: 09/24/16 09:12 Dose: 40 mg Sevelamer HCl (Renagel) 1,600 mg PO TID [facility] [place] Last Admin: 09/24/16 16:11 Dose: 1,600 mg Topiramate (Topamax) 50 mg PO BID [facility] [place] Last Admin: 09/24/16 16:11 Dose: 50 mg Vitamin B Complex/Vit C/Folic Acid (Nephro-Ajay) 1 tab PO DAILY [facility] [place] Last Admin: 09/24/16 09:12 Dose: 1 tab - Labs Labs: 09/20/16 14:50 09/20/16 14:50 PT 16.5 SECONDS (9.6-11.2) H 08/28/16 16:11 INR 1.59 (0.92-1.08) H 08/28/16 16:11 APTT 38.7 SECONDS (23.3-32.5) H 08/28/16 16:11 Today's labs are pending. Microbiology 09/20/16 15:10 Blood-During Dialysis Blood Culture - Preliminary NO GROWTH AFTER 4 DAYS 09/22/16 12:20 Foot - Right Gram Stain - Final 09/22/16 12:20 Foot - Right Wound Culture - Preliminary Yeast Species 09/20/16 14:50 Blood-During Dialysis Blood Culture - Preliminary NO GROWTH AFTER 4 DAYS 09/18/16 17:20 Naris MRSA Culture (Admit) - Final MRSA NOT DETECTED 09/10/16 13:56 Other: Please Indicate Gram Stain - Final 09/10/16 13:56 Other: Please Indicate Wound Culture - Final Eneida Parapsilosis 08/31/16 09:23 Blood Blood Culture - Final NO GROWTH AFTER 5 DAYS 08/31/16 09:23 Blood Gram Stain - Final TEST NOT PERFORMED 08/27/16 20:09 Foot - Right Gram Stain - Final 08/27/16 20:09 Foot - Right Wound Culture - Final Escherichia Coli 08/29/16 10:51 Blood Blood Culture - Final NO GROWTH AFTER 5 DAYS 08/29/16 10:51 Blood Gram Stain - Final TEST NOT PERFORMED 08/28/16 16:11 Blood-Thru Central Line Blood Culture - Final NO GROWTH AFTER 5 DAYS 08/28/16 16:11 Blood-Thru Central Line Gram Stain - Final TEST NOT PERFORMED 08/29/16 18:32 Throat Group A Strep Throat Culture - Final NO BETA STREP GROUP A ISOLATED. 08/28/16 18:17 Naris MRSA Culture (Admit) - Final MRSA NOT DETECTED 08/28/16 16:11 Blood-Thru Central Line Blood Culture - Final Escherichia Coli 08/28/16 16:11 Blood-Thru Central Line Gram Stain - Final 08/27/16 17:45 Blood-Venous Blood Culture - Final Escherichia Coli 08/27/16 17:45 Blood-Venous Gram Stain - Final heparin Allergy (Severe, Verified 08/27/16 14:01) ANAPHYLAXIS Beta-Blockers (Beta-Adrenergic Bloc Allergy (Verified 08/27/16 14:01) ANAPHYLAXIS tramadol [From Ultram] Adverse Reaction (Unknown, Verified 09/18/16 10:41) potential vasoconstriction - Constitutional Appears: No Acute Distress - Head Exam Head Exam: NORMAL INSPECTION - Eye Exam Eye Exam: Normal appearance - ENT Exam ENT Exam: Mucous Membranes Moist - Neck Exam Neck Exam: Normal Inspection Additional comments: Permacath intact. - right subclavian. - Respiratory Exam Respiratory Exam: Clear to Ausculation Bilateral - Cardiovascular Exam Cardiovascular Exam: REGULAR RHYTHM, +S1, +S2 - GI/Abdominal Exam GI & Abdominal Exam: Soft, Normal Bowel Sounds - Extremities Exam Additional comments: As noted in subjective section, there is tenderness in the posterior right ankle and excessive warmth and swelling in the lower right leg. Toe are cold and have no sensation. She cannot move right toes. No DP pulse. R ankle is dressed. L residual limb is ok. - Back Exam Back Exam: NORMAL INSPECTION - Neurological Exam Neurological Exam: Alert, Awake, CN II-XII Intact, Oriented x3 Additional comments: Non-ambulatory. - Psychiatric Exam Psychiatric exam: Anxious, Depressed - Skin Additional comments: Unable to assess buttock area at this time. Lesions beneath breasts are healing. Assessment and Plan (1) Osteomyelitis of ankle or foot Assessment & Plan: Patient has just experienced the second recurrence of fever while on 4 IV antibiotics. Whether we call this osteomyelitis or myositis, there is clearly an infection in that right foot lower leg which is not resolving. Blood cultures are being drawn now via the Permacath. Will continue the same antibiotics pending results. [The previous set of blood cultures are a bit suspect since they sat at [facility] lab for 2 days...] Conference among all physicians regarding care planning will take place tomorrow under the aegis of Dr. Good. Clarification regarding use/non-use or right leg is pending. Status: Acute (2) ESRD (end stage renal disease) on dialysis Status: Chronic (3) DM type 2 (diabetes mellitus, type 2) Status: Chronic (4) Coagulopathy Status: Chronic (5) Peripheral arterial occlusive disease Status: Chronic (6) Pneumonia Status: Acute (7) Decubitus ulcer of buttock, stage 2 Status: Acute
--- NOTE | 2016-09-25 11:40 | CP.PCM.PN ---
Subjective - Date & Time of Evaluation Date of Evaluation: 09/24/16 Time of Evaluation: 08:00 - Subjective Subjective: 46 year old female seen for evaluation of wound right heel and deformity of foot /ankle .Pt is s/p cellulitis right lower extremity . Objective - Vital Signs/Intake and Output Vital Signs (last 24 hours): Temp Pulse Resp BP Pulse Ox 100.7 F H 102 H 20 102/58 L 98 09/25/16 09:20 09/25/16 07:57 09/25/16 07:57 09/25/16 07:57 09/25/16 07:57 - Medications Medications: Current Medications Acetaminophen (Tylenol 325mg Tab) 650 mg PO Q4 PRN PRN Reason: Fever >100.4 F Last Admin: 09/25/16 09:20 Dose: 650 mg Acetaminophen (Tylenol 325mg Tab) 650 mg PO Q4 PRN PRN Reason: Pain, moderate (4-7) Last Admin: 09/16/16 22:34 Dose: 650 mg Albuterol Sulfate (Albuterol 0.083% Inhal Barbie (2.5 Mg/3 Ml) Ud) 2.5 mg INH RQ4 PRN PRN Reason: Shortness of Breath Albuterol/Ipratropium (Duoneb 3 Mg/0.5 Mg (3 Ml) Ud) 3 ml INH RQ4 PRN PRN Reason: Shortness of Breath Apixaban (Eliquis) 5 mg PO BID [facility] PRN Reason: Protocol Last Admin: 09/24/16 16:09 Dose: 5 mg Aspirin (Ecotrin) 81 mg PO DAILY [facility] Last Admin: 09/24/16 09:10 Dose: 81 mg Atorvastatin Calcium (Lipitor) 40 mg PO DAILY [facility] Last Admin: 09/24/16 09:11 Dose: 40 mg Benzonatate (Tessalon Perles) 200 mg PO TID PRN PRN Reason: Cough Last Admin: 09/20/16 08:16 Dose: 200 mg Cinacalcet (Sensipar) 30 mg PO DAILY [facility] Last Admin: 09/24/16 09:13 Dose: 30 mg Epoetin Tha (Procrit) 20,000 unit IV MWF [facility] Last Admin: 09/23/16 20:40 Dose: Not Given Ergocalciferol (Drisdol 50,000 Intl Units Cap) 1 cap PO Q7D [facility] Stop: 11/06/16 11:16 Last Admin: 09/18/16 14:34 Dose: 1 cap Fluconazole (Diflucan) 100 mg PO DAILY [facility] Last Admin: 09/24/16 09:10 Dose: 100 mg Guaifenesin/Codeine Phosphate (Robitussin W/Codeine) 10 ml PO Q6 PRN PRN Reason: Cough Last Admin: 09/22/16 21:25 Dose: 10 ml Hydrocortisone (Anusol-Hc) 1 applic [place] BID [facility] Last Admin: 09/25/16 08:54 Dose: 1 applic Hydromorphone HCl (Dilaudid) 2 mg PO Q6 PRN PRN Reason: Pain, severe (8-10) Last Admin: 09/23/16 11:45 Dose: 2 mg Hydromorphone HCl (Dilaudid) 1 mg IVP Q4 PRN PRN Reason: Pain, severe (8-10) Last Admin: 09/25/16 08:55 Dose: 1 mg Amikacin Sulfate 250 mg/ (Sodium Chloride) 101 mls @ 100.609 mls/hr IVPB MWF [facility] Last Admin: 09/23/16 09:18 Dose: 100.609 mls/hr Linezolid (Zyvox 600mg/300ml D5w) 600 mg in 300 mls @ 300 mls/hr IVPB Q12@0400, 1600 [facility] Last Admin: 09/25/16 03:14 Dose: 300 mls/hr Meropenem 500 mg/ Sodium (Chloride) 100 mls @ 100 mls/hr IVPB DAILY@0100 [facility] Last Admin: 09/25/16 01:00 Dose: 100 mls/hr Piperacillin Sod/Tazobactam (Sod 2.25 gm/ Sodium Chloride) 100 mls @ 100 mls/ hr IVPB Q12@0200,1400 [facility] Last Admin: 09/25/16 02:02 Dose: 100 mls/hr Insulin Detemir (Levemir) 30 units SC HS [facility] Last Admin: 09/24/16 21:19 Dose: 30 units Insulin Human Lispro (Humalog) 8 units SC AC [facility] Last Admin: 09/25/16 08:58 Dose: Not Given Lidocaine (Lidoderm) 1 ea TD DAILY [facility] Last Admin: 09/25/16 08:59 Dose: 1 ea Nystatin (Mycostatin Oint) 1 applic TOP TID [facility] Last Admin: 09/25/16 09:01 Dose: 1 applic Ondansetron HCl (Zofran Inj) 4 mg IVP Q6 PRN PRN Reason: Nausea/Vomiting Last Admin: 09/19/16 10:26 Dose: 4 mg Pantoprazole Sodium (Protonix Ec Tab) 40 mg PO DAILY [facility] Last Admin: 09/24/16 09:12 Dose: 40 mg Sevelamer HCl (Renagel) 1,600 mg PO TID [facility] Last Admin: 09/24/16 16:11 Dose: 1,600 mg Topiramate (Topamax) 50 mg PO BID [facility] Last Admin: 09/24/16 16:11 Dose: 50 mg Vitamin B Complex/Vit C/Folic Acid (Nephro-Ajay) 1 tab PO DAILY [facility] Last Admin: 09/24/16 09:12 Dose: 1 tab - Labs Labs: 09/20/16 14:50 09/20/16 14:50 PT 16.5 SECONDS (9.6-11.2) H 08/28/16 16:11 INR 1.59 (0.92-1.08) H 08/28/16 16:11 APTT 38.7 SECONDS (23.3-32.5) H 08/28/16 16:11 - Extremities Exam Additional comments: O/Ulcer with dry eschar right heel. Wound is ungradable in classification and diabetic neuropathic in nature . There is no abscess formation beneath nor purulent drainage noted . Diabetic neuropathy is present . Vascular status to digits is grossly intact with no gangrene of digits noted . Pedal pulses are non -palpable and peripheral vascular disease is present . Ankle and foot deformity and instability consistent with Charcot neuroarthropathy right ankle /foot noted clinically and on MRI . Assessment and Plan - Assessment and Plan (Free Text) Assessment: A/Ungradable DM ulcer right heel with Charcot JT right ankle /foot Plan: P/ I would recommend continued plan of care and move towards amputation if severe sepsis of pedal origen occurs . The patient is high risk for surgery without confirmed sepsis from foot and statistically these patients have high post op complication rates (ESRD with D.M. and P.A.D.) MRI Is negative for OM and there has been no abscess formation or purulence from this area . It should also be noted that Ms. Leo is declining a BKA at this time .
[2016-09-25] MEDS: Pantoprazole 40 mg EC Tab PO SCH (13:22)
[2016-09-25] MEDS: Epoetin Alfa 20000 UNIT/ML Inj IV SCH (13:22)
[2016-09-25] MEDS: Multivitamin Vitamin B Complex (Nephro-Vite) Tab PO SCH (13:24)
[2016-09-25] MEDS: Ergocalciferol 50,000 Intl Units Cap PO SCH (13:24)
[2016-09-25 17:26] LABS: HEMATOCRIT 26.1 % (34.0-47.0); MEAN CELL VOLUME 89.8 fl (81.0-99.0); MEAN CORPUSCULAR HEMOGLOBIN 28.4 pg (27.0-31.0); MEAN CORPUSCULAR HGB CONC 31.6 g/dL (33.0-37.0); RED CELL DISTRIBUTION WIDTH 19.4 % (11.5-14.5); WHITE BLOOD COUNT 13.3 K/uL (4.8-10.8)
[2016-09-25 17:38] LABS: ALB/GLOB RATIO 0.7 (1.0-2.1); BILIRUBIN,TOTAL 0.7 mg/dl (0.2-1.3); CALCIUM 8.7 mg/dL (8.4-10.2); POTASSIUM 3.2 MMOL/L (3.6-5.0); TOTAL PROTEIN 8.2 G/DL (6.3-8.2)
--- NOTE | 2016-09-25 18:19 | CP.PCM.PN ---
Subjective - Date & Time of Evaluation Date of Evaluation: 09/25/16 Time of Evaluation: 06:15 - Subjective Subjective: Feels tired today Objective - Vital Signs/Intake and Output Vital Signs (last 24 hours): Temp Pulse Resp BP Pulse Ox 99.4 F 100 H 20 99/62 L 99 09/25/16 16:50 09/25/16 16:50 09/25/16 16:50 09/25/16 16:50 09/25/16 16:50 - Medications Medications: Current Medications Acetaminophen (Tylenol 325mg Tab) 650 mg PO Q4 PRN PRN Reason: Fever >100.4 F Last Admin: 09/25/16 09:20 Dose: 650 mg Acetaminophen (Tylenol 325mg Tab) 650 mg PO Q4 PRN PRN Reason: Pain, moderate (4-7) Last Admin: 09/16/16 22:34 Dose: 650 mg Albuterol Sulfate (Albuterol 0.083% Inhal Barbie (2.5 Mg/3 Ml) Ud) 2.5 mg INH RQ4 PRN PRN Reason: Shortness of Breath Albuterol/Ipratropium (Duoneb 3 Mg/0.5 Mg (3 Ml) Ud) 3 ml INH RQ4 PRN PRN Reason: Shortness of Breath Apixaban (Eliquis) 5 mg PO BID [facility] PRN Reason: Protocol Last Admin: 09/25/16 13:25 Dose: 5 mg Aspirin (Ecotrin) 81 mg PO DAILY [facility] Last Admin: 09/25/16 13:22 Dose: 81 mg Atorvastatin Calcium (Lipitor) 40 mg PO DAILY [facility] Last Admin: 09/25/16 13:26 Dose: 40 mg Benzonatate (Tessalon Perles) 200 mg PO TID PRN PRN Reason: Cough Last Admin: 09/20/16 08:16 Dose: 200 mg Cinacalcet (Sensipar) 30 mg PO DAILY [facility] Last Admin: 09/25/16 13:23 Dose: 30 mg Epoetin Tha (Procrit) 20,000 unit IV MWF [facility] Last Admin: 09/25/16 13:22 Dose: 20,000 unit Ergocalciferol (Drisdol 50,000 Intl Units Cap) 1 cap PO Q7D [facility] Stop: 11/06/16 11:16 Last Admin: 09/25/16 13:24 Dose: 1 cap Fluconazole (Diflucan) 100 mg PO DAILY [facility] Last Admin: 09/25/16 13:25 Dose: 100 mg Guaifenesin/Codeine Phosphate (Robitussin W/Codeine) 10 ml PO Q6 PRN PRN Reason: Cough Last Admin: 09/22/16 21:25 Dose: 10 ml Hydrocortisone (Anusol-Hc) 1 applic [place] BID [facility] Last Admin: 09/25/16 17:02 Dose: 1 applic Hydromorphone HCl (Dilaudid) 2 mg PO Q6 PRN PRN Reason: Pain, severe (8-10) Last Admin: 09/23/16 11:45 Dose: 2 mg Hydromorphone HCl (Dilaudid) 1 mg IVP Q4 PRN PRN Reason: Pain, severe (8-10) Last Admin: 09/25/16 08:55 Dose: 1 mg Amikacin Sulfate 250 mg/ (Sodium Chloride) 101 mls @ 100.609 mls/hr IVPB MWF [facility] Last Admin: 09/25/16 13:12 Dose: 100.609 mls/hr Linezolid (Zyvox 600mg/300ml D5w) 600 mg in 300 mls @ 300 mls/hr IVPB Q12@0400, 1600 [facility] Last Admin: 09/25/16 17:05 Dose: 300 mls/hr Meropenem 500 mg/ Sodium (Chloride) 100 mls @ 100 mls/hr IVPB DAILY@0100 [facility] Last Admin: 09/25/16 01:00 Dose: 100 mls/hr Piperacillin Sod/Tazobactam (Sod 2.25 gm/ Sodium Chloride) 100 mls @ 100 mls/ hr IVPB Q12@0200,1400 [facility] Last Admin: 09/25/16 13:26 Dose: 100 mls/hr Insulin Detemir (Levemir) 30 units SC HS [facility] Last Admin: 09/24/16 21:19 Dose: 30 units Insulin Human Lispro (Humalog) 8 units SC AC [facility] Last Admin: 09/25/16 17:03 Dose: 8 units Lidocaine (Lidoderm) 1 ea TD DAILY [facility] Last Admin: 09/25/16 08:59 Dose: 1 ea Nystatin (Mycostatin Oint) 1 applic TOP TID [facility] Last Admin: 09/25/16 17:04 Dose: 1 applic Ondansetron HCl (Zofran Inj) 4 mg IVP Q6 PRN PRN Reason: Nausea/Vomiting Last Admin: 09/19/16 10:26 Dose: 4 mg Pantoprazole Sodium (Protonix Ec Tab) 40 mg PO DAILY [facility] Last Admin: 09/25/16 13:22 Dose: 40 mg Sevelamer HCl (Renagel) 1,600 mg PO TID [facility] Last Admin: 09/25/16 17:04 Dose: 1,600 mg Topiramate (Topamax) 50 mg PO BID [facility] Last Admin: 09/25/16 13:24 Dose: 50 mg Vitamin B Complex/Vit C/Folic Acid (Nephro-Ajay) 1 tab PO DAILY [facility] Last Admin: 09/25/16 13:24 Dose: 1 tab - Labs Labs: 09/25/16 17:19 09/25/16 17:19 PT 16.5 SECONDS (9.6-11.2) H 08/28/16 16:11 INR 1.59 (0.92-1.08) H 08/28/16 16:11 APTT 38.7 SECONDS (23.3-32.5) H 08/28/16 16:11 - Respiratory Exam Additional comments: Lungs clear - Cardiovascular Exam Cardiovascular Exam: Tachycardia, REGULAR RHYTHM Assessment and Plan - Assessment and Plan (Free Text) Assessment: ESRd Anemia PVD IDDM Plan: Dialysis tolerated well todar Iron frofile Monitor Hb
[2016-09-25] MEDS: Insulin Detemir 100 Units/ml Inj SC SCH (22:21)
--- NOTE | 2016-09-25 23:33 | CP.PCM.PN ---
Subjective - Date & Time of Evaluation Date of Evaluation: 09/25/16 Time of Evaluation: 20:00 - Subjective Subjective: She is doing OK on Hemodialysis. She was running a 102.4 fever. She is suffering from Cellulitis in her Right foot No seizures are reported/ Objective - Vital Signs/Intake and Output Vital Signs (last 24 hours): Temp Pulse Resp BP Pulse Ox 99.4 F 100 H 20 99/62 L 99 09/25/16 16:50 09/25/16 16:50 09/25/16 16:50 09/25/16 16:50 09/25/16 16:50 - Medications Medications: Current Medications Acetaminophen (Tylenol 325mg Tab) 650 mg PO Q4 PRN PRN Reason: Fever >100.4 F Last Admin: 09/25/16 09:20 Dose: 650 mg Acetaminophen (Tylenol 325mg Tab) 650 mg PO Q4 PRN PRN Reason: Pain, moderate (4-7) Last Admin: 09/16/16 22:34 Dose: 650 mg Albuterol Sulfate (Albuterol 0.083% Inhal Barbie (2.5 Mg/3 Ml) Ud) 2.5 mg INH RQ4 PRN PRN Reason: Shortness of Breath Albuterol/Ipratropium (Duoneb 3 Mg/0.5 Mg (3 Ml) Ud) 3 ml INH RQ4 PRN PRN Reason: Shortness of Breath Apixaban (Eliquis) 5 mg PO BID [facility] PRN Reason: Protocol Last Admin: 09/25/16 13:25 Dose: 5 mg Aspirin (Ecotrin) 81 mg PO DAILY [facility] Last Admin: 09/25/16 13:22 Dose: 81 mg Atorvastatin Calcium (Lipitor) 40 mg PO DAILY [facility] Last Admin: 09/25/16 13:26 Dose: 40 mg Benzonatate (Tessalon Perles) 200 mg PO TID PRN PRN Reason: Cough Last Admin: 09/20/16 08:16 Dose: 200 mg Cinacalcet (Sensipar) 30 mg PO DAILY [facility] Last Admin: 09/25/16 13:23 Dose: 30 mg Epoetin Tha (Procrit) 20,000 unit IV MWF [facility] Last Admin: 09/25/16 13:22 Dose: 20,000 unit Ergocalciferol (Drisdol 50,000 Intl Units Cap) 1 cap PO Q7D [facility] Stop: 11/06/16 11:16 Last Admin: 09/25/16 13:24 Dose: 1 cap Fluconazole (Diflucan) 100 mg PO DAILY [facility] Last Admin: 09/25/16 13:25 Dose: 100 mg Guaifenesin/Codeine Phosphate (Robitussin W/Codeine) 10 ml PO Q6 PRN PRN Reason: Cough Last Admin: 09/22/16 21:25 Dose: 10 ml Hydrocortisone (Anusol-Hc) 1 applic [place] BID [facility] Last Admin: 09/25/16 17:02 Dose: 1 applic Hydromorphone HCl (Dilaudid) 2 mg PO Q6 PRN PRN Reason: Pain, severe (8-10) Last Admin: 09/23/16 11:45 Dose: 2 mg Hydromorphone HCl (Dilaudid) 1 mg IVP Q4 PRN PRN Reason: Pain, severe (8-10) Last Admin: 09/25/16 22:06 Dose: 1 mg Amikacin Sulfate 250 mg/ (Sodium Chloride) 101 mls @ 100.609 mls/hr IVPB MWF [facility] Last Admin: 09/25/16 13:12 Dose: 100.609 mls/hr Linezolid (Zyvox 600mg/300ml D5w) 600 mg in 300 mls @ 300 mls/hr IVPB Q12@0400, 1600 [facility] Last Admin: 09/25/16 17:05 Dose: 300 mls/hr Meropenem 500 mg/ Sodium (Chloride) 100 mls @ 100 mls/hr IVPB DAILY@0100 [facility] Last Admin: 09/25/16 01:00 Dose: 100 mls/hr Piperacillin Sod/Tazobactam (Sod 2.25 gm/ Sodium Chloride) 100 mls @ 100 mls/ hr IVPB Q12@0200,1400 [facility] Last Admin: 09/25/16 13:26 Dose: 100 mls/hr Insulin Detemir (Levemir) 30 units SC HS [facility] Last Admin: 09/25/16 22:21 Dose: 30 units Insulin Human Lispro (Humalog) 8 units SC AC [facility] Last Admin: 09/25/16 17:03 Dose: 8 units Lidocaine (Lidoderm) 1 ea TD DAILY [facility] Last Admin: 09/25/16 08:59 Dose: 1 ea Nystatin (Mycostatin Oint) 1 applic TOP TID [facility] Last Admin: 09/25/16 17:04 Dose: 1 applic Ondansetron HCl (Zofran Inj) 4 mg IVP Q6 PRN PRN Reason: Nausea/Vomiting Last Admin: 09/19/16 10:26 Dose: 4 mg Pantoprazole Sodium (Protonix Ec Tab) 40 mg PO DAILY [facility] Last Admin: 09/25/16 13:22 Dose: 40 mg Sevelamer HCl (Renagel) 1,600 mg PO TID [facility] Last Admin: 09/25/16 17:04 Dose: 1,600 mg Topiramate (Topamax) 50 mg PO BID [facility] Last Admin: 09/25/16 13:24 Dose: 50 mg Vitamin B Complex/Vit C/Folic Acid (Nephro-Ajay) 1 tab PO DAILY [facility] Last Admin: 09/25/16 13:24 Dose: 1 tab - Labs Labs: 09/25/16 17:19 09/25/16 17:19 PT 16.5 SECONDS (9.6-11.2) H 08/28/16 16:11 INR 1.59 (0.92-1.08) H 08/28/16 16:11 APTT 38.7 SECONDS (23.3-32.5) H 08/28/16 16:11 Assessment and Plan (1) Diabetes Status: Chronic (2) ESRD (end stage renal disease) Status: Chronic (3) Cellulitis of leg Status: Acute (4) Hyperlipidemia Status: Chronic (5) Back pain Status: Acute (6) Bacteremia due to Gram-negative bacteria Status: Acute (7) Diabetes mellitus type 2 with peripheral artery disease Status: Acute (8) PVD (peripheral vascular disease) Status: Acute
[2016-09-26] MEDS: Meropenem 500 MG in Sodium Chloride 0.9% 100 ML IVPB SCH
[2016-09-26] MEDS ORDERED: Linezolid 600 mg in D5W 300 ml IVPB ONE (09:00)
[2016-09-26] MEDS ORDERED: Piperacillin/Tazobact 2.25 gm Inj ONE (09:00)
--- NOTE | 2016-09-26 22:03 | PN ---
DATE: 09/26/2016 LOCATION: Room 663. SUBJECTIVE: This is a 46-year-old female with recent uncontrolled type 2 insulin-requiring diabetes, now being followed closely for metabolic management. Her glycemic levels have remained near optimal at this time with the current basal and bolus insulin regimen as given. LABORATORY DATA: Her glucose levels have ranged from 121 to 162 mg/dL. Her latest chemistries inclu de a BUN of 15, sodium 139, potassium 3.2, chloride 97, CO2 29, glucose 121, and creatinine 3.9. There was a multispecialty conference today undertaken to make a definite decision regarding the [facility] status of the patient. She has a nonhealing right heel neuropathic ulceration with underlying o steomyelitis and cellulitis with severe underlying arterial vasculopathy, and the consensus of john rondon was that the patient needs amputation, not only to promote healing of the distal lower extremity, b ut also to obviate and prevent further bacteremia and avoid septic shock, which she presented here in itially on admission. She continues to have right lower extremity painful neuropathy with dysesthesi as and paresthesias, as noted thereof. Will continue the same basal and bolus insulin regimen with L evemir given as 30 units subcutaneous at bedtime daily and Humalog given as 8 units subcutaneous t.i. d. before meals as ordered. Will titrate incrementally as indicated to optimize metabolic control. We will follow. Irene Ambrose MD cc: [phone] TT: 09/26/2016 22:02:41 Confirmation # [id number] Dictation # [id number] amalia
[2016-09-26] MEDS: Insulin Detemir 100 Units/ml Inj SC SCH (22:49)
[2016-09-27] MEDS: Meropenem 500 MG in Sodium Chloride 0.9% 100 ML IVPB SCH (00:04)
--- NOTE | 2016-09-27 00:55 | CP.PCM.PN ---
Subjective - Date & Time of Evaluation Date of Evaluation: 09/26/16 Time of Evaluation: 21:30 - Subjective Subjective: Topamax is renewed and she is not suffering from seizures and syncope. Objective - Vital Signs/Intake and Output Vital Signs (last 24 hours): Temp Pulse Resp BP Pulse Ox 99.4 F 100 H 20 99/62 L 99 09/25/16 16:50 09/25/16 16:50 09/25/16 16:50 09/25/16 16:50 09/25/16 16:50 - Medications Medications: Current Medications Acetaminophen (Tylenol 325mg Tab) 650 mg PO Q4 PRN PRN Reason: Fever >100.4 F Last Admin: 09/25/16 09:20 Dose: 650 mg Acetaminophen (Tylenol 325mg Tab) 650 mg PO Q4 PRN PRN Reason: Pain, moderate (4-7) Last Admin: 09/16/16 22:34 Dose: 650 mg Albuterol Sulfate (Albuterol 0.083% Inhal Barbie (2.5 Mg/3 Ml) Ud) 2.5 mg INH RQ4 PRN PRN Reason: Shortness of Breath Albuterol/Ipratropium (Duoneb 3 Mg/0.5 Mg (3 Ml) Ud) 3 ml INH RQ4 PRN PRN Reason: Shortness of Breath Aspirin (Ecotrin) 81 mg PO DAILY [facility] Last Admin: 09/25/16 13:22 Dose: 81 mg Atorvastatin Calcium (Lipitor) 40 mg PO DAILY [facility] Last Admin: 09/25/16 13:26 Dose: 40 mg Benzonatate (Tessalon Perles) 200 mg PO TID PRN PRN Reason: Cough Last Admin: 09/20/16 08:16 Dose: 200 mg Cinacalcet (Sensipar) 30 mg PO DAILY [facility] Last Admin: 09/25/16 13:23 Dose: 30 mg Epoetin Tha (Procrit) 20,000 unit IV MWF [facility] Last Admin: 09/25/16 13:22 Dose: 20,000 unit Ergocalciferol (Drisdol 50,000 Intl Units Cap) 1 cap PO Q7D [facility] Stop: 11/06/16 11:16 Last Admin: 09/25/16 13:24 Dose: 1 cap Fluconazole (Diflucan) 100 mg PO DAILY [facility] Last Admin: 09/25/16 13:25 Dose: 100 mg Guaifenesin/Codeine Phosphate (Robitussin W/Codeine) 10 ml PO Q6 PRN PRN Reason: Cough Last Admin: 09/22/16 21:25 Dose: 10 ml Hydrocortisone (Anusol-Hc) 1 applic [place] BID [facility] Last Admin: 09/25/16 17:02 Dose: 1 applic Hydromorphone HCl (Dilaudid) 2 mg PO Q6 PRN PRN Reason: Pain, severe (8-10) Last Admin: 09/26/16 22:47 Dose: 2 mg Amikacin Sulfate 250 mg/ (Sodium Chloride) 101 mls @ 100.609 mls/hr IVPB MWF [facility] Last Admin: 09/25/16 13:12 Dose: 100.609 mls/hr Linezolid (Zyvox 600mg/300ml D5w) 600 mg in 300 mls @ 300 mls/hr IVPB Q12@0400, 1600 [facility] Last Admin: 09/25/16 17:05 Dose: 300 mls/hr Meropenem 500 mg/ Sodium (Chloride) 100 mls @ 100 mls/hr IVPB DAILY@0100 [facility] Last Admin: 09/27/16 00:04 Dose: 100 mls/hr Piperacillin Sod/Tazobactam (Sod 2.25 gm/ Sodium Chloride) 100 mls @ 100 mls/ hr IVPB Q12@0200,1400 [facility] Last Admin: 09/25/16 13:26 Dose: 100 mls/hr Insulin Detemir (Levemir) 30 units SC HS [facility] Last Admin: 09/26/16 22:49 Dose: 30 units Insulin Human Lispro (Humalog) 8 units SC AC [facility] Last Admin: 09/25/16 17:03 Dose: 8 units Lidocaine (Lidoderm) 1 ea TD DAILY [facility] Last Admin: 09/25/16 08:59 Dose: 1 ea Nystatin (Mycostatin Oint) 1 applic TOP TID [facility] Last Admin: 09/25/16 17:04 Dose: 1 applic Ondansetron HCl (Zofran Inj) 4 mg IVP Q6 PRN PRN Reason: Nausea/Vomiting Last Admin: 09/19/16 10:26 Dose: 4 mg Pantoprazole Sodium (Protonix Ec Tab) 40 mg PO DAILY [facility] Last Admin: 09/25/16 13:22 Dose: 40 mg Sevelamer HCl (Renagel) 1,600 mg PO TID [facility] Last Admin: 09/25/16 17:04 Dose: 1,600 mg Topiramate (Topamax) 50 mg PO BID [facility] Last Admin: 09/25/16 13:24 Dose: 50 mg Vitamin B Complex/Vit C/Folic Acid (Nephro-Ajay) 1 tab PO DAILY [facility] Last Admin: 09/25/16 13:24 Dose: 1 tab - Labs Labs: 09/25/16 17:19 09/25/16 17:19 PT 16.5 SECONDS (9.6-11.2) H 08/28/16 16:11 INR 1.59 (0.92-1.08) H 08/28/16 16:11 APTT 38.7 SECONDS (23.3-32.5) H 08/28/16 16:11 Assessment and Plan (1) Diabetes Status: Chronic (2) ESRD (end stage renal disease) Status: Chronic (3) Cellulitis of leg Status: Acute (4) Hyperlipidemia Status: Chronic (5) Back pain Status: Acute (6) Bacteremia due to Gram-negative bacteria Status: Acute (7) Diabetes mellitus type 2 with peripheral artery disease Status: Acute (8) PVD (peripheral vascular disease) Status: Acute
[2016-09-27] MEDS: Linezolid 600 mg in D5W 300 ml 600 MG/300 ML BAG IVPB SCH ×3 (03:06→15:49)
--- NOTE | 2016-09-27 06:22 | CP.PCM.PN ---
Subjective - Date & Time of Evaluation Date of Evaluation: 09/27/16 Time of Evaluation: 06:20 - Subjective Subjective: 46 year old female was seen resting at bedside regarding right heel eschar. Patient states that she does have pain to the right foot and ankle. She states that today she feels tired and weak and is having a very heavy menstrual cycle. She states she isn't sure she feels strong enough to participate in physical therapy today. Denies n/v/f/c/sob/cp. Objective - Vital Signs/Intake and Output Vital Signs (last 24 hours): Temp Pulse Resp BP Pulse Ox 99.4 F 100 H 20 99/62 L 99 09/25/16 16:50 09/25/16 16:50 09/25/16 16:50 09/25/16 16:50 09/25/16 16:50 - Medications Medications: Current Medications Acetaminophen (Tylenol 325mg Tab) 650 mg PO Q4 PRN PRN Reason: Fever >100.4 F Last Admin: 09/25/16 09:20 Dose: 650 mg Acetaminophen (Tylenol 325mg Tab) 650 mg PO Q4 PRN PRN Reason: Pain, moderate (4-7) Last Admin: 09/16/16 22:34 Dose: 650 mg Albuterol Sulfate (Albuterol 0.083% Inhal Barbie (2.5 Mg/3 Ml) Ud) 2.5 mg INH RQ4 PRN PRN Reason: Shortness of Breath Albuterol/Ipratropium (Duoneb 3 Mg/0.5 Mg (3 Ml) Ud) 3 ml INH RQ4 PRN PRN Reason: Shortness of Breath Aspirin (Ecotrin) 81 mg PO DAILY [facility] Last Admin: 09/25/16 13:22 Dose: 81 mg Atorvastatin Calcium (Lipitor) 40 mg PO DAILY [facility] Last Admin: 09/25/16 13:26 Dose: 40 mg Benzonatate (Tessalon Perles) 200 mg PO TID PRN PRN Reason: Cough Last Admin: 09/20/16 08:16 Dose: 200 mg Cinacalcet (Sensipar) 30 mg PO DAILY [facility] Last Admin: 09/25/16 13:23 Dose: 30 mg Epoetin Tha (Procrit) 20,000 unit IV MWF [facility] Last Admin: 09/25/16 13:22 Dose: 20,000 unit Ergocalciferol (Drisdol 50,000 Intl Units Cap) 1 cap PO Q7D [facility] Stop: 11/06/16 11:16 Last Admin: 09/25/16 13:24 Dose: 1 cap Fluconazole (Diflucan) 100 mg PO DAILY [facility] Last Admin: 09/25/16 13:25 Dose: 100 mg Guaifenesin/Codeine Phosphate (Robitussin W/Codeine) 10 ml PO Q6 PRN PRN Reason: Cough Last Admin: 09/22/16 21:25 Dose: 10 ml Hydrocortisone (Anusol-Hc) 1 applic [place] BID [facility] Last Admin: 09/25/16 17:02 Dose: 1 applic Hydromorphone HCl (Dilaudid) 2 mg PO Q6 PRN PRN Reason: Pain, severe (8-10) Last Admin: 09/27/16 05:28 Dose: 2 mg Amikacin Sulfate 250 mg/ (Sodium Chloride) 101 mls @ 100.609 mls/hr IVPB MWF [facility] Last Admin: 09/25/16 13:12 Dose: 100.609 mls/hr Linezolid (Zyvox 600mg/300ml D5w) 600 mg in 300 mls @ 300 mls/hr IVPB Q12@0400, 1600 [facility] Last Admin: 09/27/16 03:06 Dose: 300 mls/hr Meropenem 500 mg/ Sodium (Chloride) 100 mls @ 100 mls/hr IVPB DAILY@0100 [facility] Last Admin: 09/27/16 00:04 Dose: 100 mls/hr Piperacillin Sod/Tazobactam (Sod 2.25 gm/ Sodium Chloride) 100 mls @ 100 mls/ hr IVPB Q12@0200,1400 [facility] Last Admin: 09/27/16 01:49 Dose: 100 mls/hr Insulin Detemir (Levemir) 30 units SC HS [facility] Last Admin: 09/26/16 22:49 Dose: 30 units Insulin Human Lispro (Humalog) 8 units SC AC [facility] Last Admin: 09/25/16 17:03 Dose: 8 units Lidocaine (Lidoderm) 1 ea TD DAILY [facility] Last Admin: 09/25/16 08:59 Dose: 1 ea Nystatin (Mycostatin Oint) 1 applic TOP TID [facility] Last Admin: 09/25/16 17:04 Dose: 1 applic Ondansetron HCl (Zofran Inj) 4 mg IVP Q6 PRN PRN Reason: Nausea/Vomiting Last Admin: 09/19/16 10:26 Dose: 4 mg Pantoprazole Sodium (Protonix Ec Tab) 40 mg PO DAILY [facility] Last Admin: 09/25/16 13:22 Dose: 40 mg Sevelamer HCl (Renagel) 1,600 mg PO TID [facility] Last Admin: 09/25/16 17:04 Dose: 1,600 mg Topiramate (Topamax) 50 mg PO BID [facility] Last Admin: 09/25/16 13:24 Dose: 50 mg Vitamin B Complex/Vit C/Folic Acid (Nephro-Ajay) 1 tab PO DAILY [facility] Last Admin: 09/25/16 13:24 Dose: 1 tab - Labs Labs: 09/25/16 17:19 09/25/16 17:19 PT 16.5 SECONDS (9.6-11.2) H 08/28/16 16:11 INR 1.59 (0.92-1.08) H 08/28/16 16:11 APTT 38.7 SECONDS (23.3-32.5) H 08/28/16 16:11 - Constitutional Appears: Non-toxic, No Acute Distress, Chronically Ill - Extremities Exam Additional comments: Right lower extremity focused exam: VASC: DP and PT pulses non-palpable, capillary refill < 5 sec to digits, Mild edema noted to anterior aspect of leg and dorsum of foot, signs decreased, edema with near full return of relaxed skin tension lines. Skin temperature warm to cool from proximal to distal. NEURO: Gross pedal sensation is diminished DERM: Superficial dry eschar noted to plantar aspect of heel, with fibrotic tissue noted along eschar. Moderate increased warmth noted to distal leg and ankle. No local or ascending erythema, no acute signs infection. Eschar itself soft, no fluctuance. ORTHO: No tenderness along palpation of muscle belly course of gastrocnemius, peroneals. Pain along Distal 1/3 of Achilles tendon. Moderate tenderness noted along distal 6cm course of tibialis anterior muscle proximal to ankle joint. Tenderness noted to lateral aspect of ankle, at apex of varus deformity. Severe varus deformity with dislocation of ankle noted. - Neurological Exam Neurological Exam: Alert, Awake, Oriented x3 - Psychiatric Exam Psychiatric exam: Normal Affect, Normal Mood Assessment and Plan - Assessment and Plan (Free Text) Assessment: 46 yo female patient with pmhx of HTN, ESRD (on dialysis), coagulopathy, DM, Charcot Arthropathy of Right foot PVD w/ dry eschar of right heel, symptomatic myositis & tendonitis. Plan: Patient examined and evaluated Discussed in detail with attending. Medical provider, consulting service physician notes, & Physical therapy evaluation reviewed. Dr. Resendez made aware of all pertinent changes and findings. Chart, labs, vitals reviewed; afebrile Right heel dressed with allevyn foam and cling Multipodus boot to be worn at all times while in bed Continue IV abx per ID Goal of physical therapy should be continued re-conditioning with transfer training and leg strengthening. Patient to wear [employer] to RLE during PT and can be WBAT Note that aggressive physical activity to a Charcot joint can exacerbate symptoms returning to acute phase Charcot which presents as painful, swollen, and erythematous. Podiatry will continue to follow patient while in house
--- NOTE | 2016-09-27 07:59 | CP.PCM.PN ---
Subjective - Date & Time of Evaluation Date of Evaluation: 09/27/16 Time of Evaluation: 07:57 - Subjective Subjective: After a meeting with all the consultants seeing the pt it was decided that a right AKA would be the best thing to do for her, and pt agrees. She has however has a heavy period for almost a week and her hgb has dropped to 8.2, so she will be transfused 2 units of blood with her dialysis Objective - Vital Signs/Intake and Output Vital Signs (last 24 hours): Temp Pulse Resp BP Pulse Ox 99.4 F 100 H 20 99/62 L 99 09/25/16 16:50 09/25/16 16:50 09/25/16 16:50 09/25/16 16:50 09/25/16 16:50 - Medications Medications: Current Medications Acetaminophen (Tylenol 325mg Tab) 650 mg PO Q4 PRN PRN Reason: Fever >100.4 F Last Admin: 09/25/16 09:20 Dose: 650 mg Acetaminophen (Tylenol 325mg Tab) 650 mg PO Q4 PRN PRN Reason: Pain, moderate (4-7) Last Admin: 09/16/16 22:34 Dose: 650 mg Albuterol Sulfate (Albuterol 0.083% Inhal Barbie (2.5 Mg/3 Ml) Ud) 2.5 mg INH RQ4 PRN PRN Reason: Shortness of Breath Albuterol/Ipratropium (Duoneb 3 Mg/0.5 Mg (3 Ml) Ud) 3 ml INH RQ4 PRN PRN Reason: Shortness of Breath Aspirin (Ecotrin) 81 mg PO DAILY [facility] Last Admin: 09/25/16 13:22 Dose: 81 mg Atorvastatin Calcium (Lipitor) 40 mg PO DAILY [facility] Last Admin: 09/25/16 13:26 Dose: 40 mg Benzonatate (Tessalon Perles) 200 mg PO TID PRN PRN Reason: Cough Last Admin: 09/20/16 08:16 Dose: 200 mg Cinacalcet (Sensipar) 30 mg PO DAILY [facility] Last Admin: 09/25/16 13:23 Dose: 30 mg Epoetin Tha (Procrit) 20,000 unit IV MWF [facility] Last Admin: 09/25/16 13:22 Dose: 20,000 unit Ergocalciferol (Drisdol 50,000 Intl Units Cap) 1 cap PO Q7D [facility] Stop: 11/06/16 11:16 Last Admin: 09/25/16 13:24 Dose: 1 cap Fluconazole (Diflucan) 100 mg PO DAILY [facility] Last Admin: 09/25/16 13:25 Dose: 100 mg Guaifenesin/Codeine Phosphate (Robitussin W/Codeine) 10 ml PO Q6 PRN PRN Reason: Cough Last Admin: 09/22/16 21:25 Dose: 10 ml Hydrocortisone (Anusol-Hc) 1 applic [place] BID [facility] Last Admin: 09/25/16 17:02 Dose: 1 applic Hydromorphone HCl (Dilaudid) 2 mg PO Q6 PRN PRN Reason: Pain, severe (8-10) Last Admin: 09/27/16 05:28 Dose: 2 mg Amikacin Sulfate 250 mg/ (Sodium Chloride) 101 mls @ 100.609 mls/hr IVPB MWF [facility] Last Admin: 09/25/16 13:12 Dose: 100.609 mls/hr Linezolid (Zyvox 600mg/300ml D5w) 600 mg in 300 mls @ 300 mls/hr IVPB Q12@0400, 1600 [facility] Last Admin: 09/27/16 03:06 Dose: 300 mls/hr Meropenem 500 mg/ Sodium (Chloride) 100 mls @ 100 mls/hr IVPB DAILY@0100 [facility] Last Admin: 09/27/16 00:04 Dose: 100 mls/hr Piperacillin Sod/Tazobactam (Sod 2.25 gm/ Sodium Chloride) 100 mls @ 100 mls/ hr IVPB Q12@0200,1400 [facility] Last Admin: 09/27/16 01:49 Dose: 100 mls/hr Insulin Detemir (Levemir) 30 units SC HS [facility] Last Admin: 09/26/16 22:49 Dose: 30 units Insulin Human Lispro (Humalog) 8 units SC AC [facility] Last Admin: 09/25/16 17:03 Dose: 8 units Lidocaine (Lidoderm) 1 ea TD DAILY [facility] Last Admin: 09/25/16 08:59 Dose: 1 ea Nystatin (Mycostatin Oint) 1 applic TOP TID [facility] Last Admin: 09/25/16 17:04 Dose: 1 applic Ondansetron HCl (Zofran Inj) 4 mg IVP Q6 PRN PRN Reason: Nausea/Vomiting Last Admin: 09/19/16 10:26 Dose: 4 mg Pantoprazole Sodium (Protonix Ec Tab) 40 mg PO DAILY [facility] Last Admin: 09/25/16 13:22 Dose: 40 mg Sevelamer HCl (Renagel) 1,600 mg PO TID [facility] Last Admin: 09/25/16 17:04 Dose: 1,600 mg Topiramate (Topamax) 50 mg PO BID [facility] Last Admin: 09/25/16 13:24 Dose: 50 mg Vitamin B Complex/Vit C/Folic Acid (Nephro-Ajay) 1 tab PO DAILY [facility] Last Admin: 09/25/16 13:24 Dose: 1 tab - Labs Labs: 09/25/16 17:19 09/25/16 17:19 PT 16.5 SECONDS (9.6-11.2) H 08/28/16 16:11 INR 1.59 (0.92-1.08) H 08/28/16 16:11 APTT 38.7 SECONDS (23.3-32.5) H 08/28/16 16:11
[2016-09-27] MEDS: Insulin Lispro (humaLOG) 100 Units/ml Inj SC SCH ×4 (08:41→16:07)
--- NOTE | 2016-09-27 09:01 | CP.PCM.PN ---
Subjective - Date & Time of Evaluation Date of Evaluation: 09/26/16 Time of Evaluation: 11:30 - Subjective Subjective: Computers were down on date of visit (09/26/16). Progress Note on paper will have to be scanned to computer. Patient with continued pain in R ankle/lower leg. Temp 100.1 Hgb. 8.8 wbc 13,000 Discussion was held among all the treating physicians including podiatry and general surgery, ID,, hematology, cardiology, pulmonary,and myself with the help of JUAN J Finley. The overwhelming impression was that the patient has an infection in the right ankle, which is not a functional joint, and that this infection is causing serious risk of sepsis and . Dr. Good will be speaking with the patient and her mother to assist in the decision making. I will discuss further with Dr. Doran whether any further studies are needed to help decide if we are recommending right AKA or BKA. Meanwhile, as per advice of Dr. Evita Shepard, we will continue the Eliquis and aspirin. Today will will transfuse 2 units of rbc's during hemodialysis. CBC, CMP, and lactic acid levels have been ordered. NB. Glucose level of 308 last night was an error and should be disregarded. Trial of walking with [place] on right leg is to be attempted today by physical therapists. So far it has taken 3 people to get the patient from bed to chair. Notes by Drs. Evita Shepard, Ana, and Ting appreciated. I will re-evaluate the patient this evening. MEL Thomas MD 09/27/16 Objective - Vital Signs/Intake and Output Vital Signs (last 24 hours): Temp Pulse Resp BP Pulse Ox 98.1 F 110 H 20 107/63 94 L 09/27/16 08:02 09/27/16 08:02 09/27/16 08:02 09/27/16 08:02 09/27/16 08:02 - Medications Medications: Current Medications Acetaminophen (Tylenol 325mg Tab) 650 mg PO Q4 PRN PRN Reason: Fever >100.4 F Last Admin: 09/25/16 09:20 Dose: 650 mg Acetaminophen (Tylenol 325mg Tab) 650 mg PO Q4 PRN PRN Reason: Pain, moderate (4-7) Last Admin: 09/16/16 22:34 Dose: 650 mg Albuterol Sulfate (Albuterol 0.083% Inhal Barbie (2.5 Mg/3 Ml) Ud) 2.5 mg INH RQ4 PRN PRN Reason: Shortness of Breath Albuterol/Ipratropium (Duoneb 3 Mg/0.5 Mg (3 Ml) Ud) 3 ml INH RQ4 PRN PRN Reason: Shortness of Breath Aspirin (Ecotrin) 81 mg PO DAILY [facility] Last Admin: 09/25/16 13:22 Dose: 81 mg Atorvastatin Calcium (Lipitor) 40 mg PO DAILY [facility] Last Admin: 09/25/16 13:26 Dose: 40 mg Benzonatate (Tessalon Perles) 200 mg PO TID PRN PRN Reason: Cough Last Admin: 09/20/16 08:16 Dose: 200 mg Cinacalcet (Sensipar) 30 mg PO DAILY [facility] Last Admin: 09/25/16 13:23 Dose: 30 mg Epoetin Tha (Procrit) 20,000 unit [place] [facility] [place] [facility] Admin: 09/25/16 13:22 Dose: 20,000 unit Ergocalciferol (Drisdol 50,000 Intl Units Cap) 1 cap PO Q7D [facility] Stop: 11/06/16 11:16 Last Admin: 09/25/16 13:24 Dose: 1 cap Fluconazole (Diflucan) 100 mg PO DAILY [facility] Last Admin: 09/25/16 13:25 Dose: 100 mg Guaifenesin/Codeine Phosphate (Robitussin W/Codeine) 10 ml PO Q6 PRN PRN Reason: Cough Last Admin: 09/22/16 21:25 Dose: 10 ml Hydrocortisone (Anusol-Hc) 1 applic [place] BID [facility] Last Admin: 09/25/16 17:02 Dose: 1 applic Hydromorphone HCl (Dilaudid) 2 mg PO Q6 PRN PRN Reason: Pain, severe (8-10) Last Admin: 09/27/16 05:28 Dose: 2 mg Amikacin Sulfate 250 mg/ (Sodium Chloride) 101 mls @ 100.609 mls/hr IVPB MWF [facility] Last Admin: 09/25/16 13:12 Dose: 100.609 mls/hr Linezolid (Zyvox 600mg/300ml D5w) 600 mg in 300 mls @ 300 mls/hr IVPB Q12@0400, 1600 [facility] Last Admin: 09/27/16 03:06 Dose: 300 mls/hr Meropenem 500 mg/ Sodium (Chloride) 100 mls @ 100 mls/hr IVPB DAILY@0100 [facility] Last Admin: 09/27/16 00:04 Dose: 100 mls/hr Piperacillin Sod/Tazobactam (Sod 2.25 gm/ Sodium Chloride) 100 mls @ 100 mls/ hr IVPB Q12@0200,1400 [facility] Last Admin: 09/27/16 01:49 Dose: 100 mls/hr Insulin Detemir (Levemir) 30 units SC HS [facility] Last Admin: 09/26/16 22:49 Dose: 30 units Insulin Human Lispro (Humalog) 8 units SC AC [facility] Last Admin: 09/25/16 17:03 Dose: 8 units Lidocaine (Lidoderm) 1 ea TD DAILY [facility] Last Admin: 09/25/16 08:59 Dose: 1 ea Nystatin (Mycostatin Oint) 1 applic TOP TID [facility] Last Admin: 09/25/16 17:04 Dose: 1 applic Ondansetron HCl (Zofran Inj) 4 mg IVP Q6 PRN PRN Reason: Nausea/Vomiting Last Admin: 09/19/16 10:26 Dose: 4 mg Pantoprazole Sodium (Protonix Ec Tab) 40 mg PO DAILY [facility] Last Admin: 09/25/16 13:22 Dose: 40 mg Sevelamer HCl (Renagel) 1,600 mg PO TID [facility] Last Admin: 09/25/16 17:04 Dose: 1,600 mg Topiramate (Topamax) 50 mg PO BID [facility] Last Admin: 09/25/16 13:24 Dose: 50 mg Vitamin B Complex/Vit C/Folic Acid (Nephro-Ajay) 1 tab PO DAILY [facility] Last Admin: 09/25/16 13:24 Dose: 1 tab - Labs Labs: 09/25/16 17:19 09/25/16 17:19 PT 16.5 SECONDS (9.6-11.2) H 08/28/16 16:11 INR 1.59 (0.92-1.08) H 08/28/16 16:11 APTT 38.7 SECONDS (23.3-32.5) H 08/28/16 16:11 Assessment and Plan (1) Osteomyelitis of ankle or foot Status: Acute (2) ESRD (end stage renal disease) on dialysis Status: Chronic (3) DM type 2 (diabetes mellitus, type 2) Status: Chronic (4) Coagulopathy Status: Chronic (5) Peripheral arterial occlusive disease Status: Chronic (6) Pneumonia Status: Acute (7) Decubitus ulcer of buttock, stage 2 Status: Acute
[2016-09-27] MEDS: Pantoprazole 40 mg EC Tab PO SCH ×2 (09:36)
[2016-09-27] MEDS: Lidocaine 5% Patch TD SCH ×2 (09:38→09:39)
[2016-09-27] MEDS: Nystatin Ointment TOP SCH ×4 (09:39→16:03)
[2016-09-27] MEDS: Multivitamin Vitamin B Complex (Nephro-Vite) Tab PO SCH ×2 (09:39→09:51)
--- NOTE | 2016-09-27 09:45 | PN ---
DATE: 09/25/2016 ROOM: 663 SUBJECTIVE: This is a 46-year-old female with recent uncontrolled type 2 insulin-requiring diabetes, now being followed closely for metabolic management. Her glycemic levels have really stabilized and improved at this time on the current insulin regimen as given. Her latest chemistry showed a BUN of 41, sodium 137, potassium 4.1, chloride 97, CO2 of 26, glucose 158 and creatinine 7.1. So, at this time, we will continue the same basal and bolus insulin regimen as given with Levemir given as 30 uni ts subQ at bedtime daily and Humalog given as 8 units subQ t.i.d. before meals as ordered. We will t itrate incrementally as indicated to optimize metabolic control. We will also continue the current m ultiple IV antibiotics as given for management of underlying right lower extremity cellulitis and ost eomyelitis as noted and given. We will obtain serial chemistries and supplement accordingly as edenilson lange. We will follow. Irene Ambrose MD cc: [phone] TT: 09/25/2016 16:43:23 Confirmation # [id number] Dictation # [id number] amalia
[2016-09-27] MEDS: Hydrocortisone 2.5% (Rectal) CREAM PR SCH ×3 (09:51→16:45)
--- NOTE | 2016-09-27 12:51 | PN ---
DATE: 09/27/2016 ROOM: 663. SUBJECTIVE: This is a 46-year-old female with recent uncontrolled type 2 insulin-requiring diabetes, now being followed closely for metabolic management. Her glycemic levels are fluctuating, but much improved at this time and the latest glucose levels have ranged from 121-162 and 285 mg/dL. Her late st chemistries include a BUN of 15, sodium 139, potassium 3.2, chloride 97, CO2 29, glucose 121 and c reatinine 3.9. So, at this time, we will continue the same basal and bolus insulin regimen to allow for dose equilibration and keep her on the Levemir given as 30 units subQ at bedtime daily as ordered . Will also continue the low dose correction scale as ordered and also the same low dose prandial in sulin with Humalog given as 8 units subQ t.i.d. before meals as given. We will titrate incrementally as indicated to optimize metabolic control. We will follow. Irene Ambrose MD cc: [phone] TT: 09/27/2016 12:50:24 Confirmation # [id number] Dictation # [id number] ravinder
--- NOTE | 2016-09-27 17:06 | CP.PCM.PN ---
Subjective - Date & Time of Evaluation Date of Evaluation: 09/27/16 Time of Evaluation: 17:05 - Subjective Subjective: Follow up Nephrology Consultation Note Assessment/Plan: End stage renal disease on hemodialysis (MWF) via permacath: Will plan for dialysis today as ordered. continue with Nephrovite 1 tab/day. Anemia: PRBC as needed. On MARTHA as Epogen 20,000 with HD. last Hb 8.2 TSAT 73% and ferritin >1000. will be given PRBC with HD as per team recs. Hyperphosphatemia: continue with current meds as renagel 1600 TID last phos level 5.0 Secondary hyperparathyroidism with Vit D Deficiency: continue with sensipar 30 mg/day. Last PTH level 423. Vit D <12. supplemented with ergo 50,000 weekly x 8 doses Hypertension controlled: BP mostly on low side Glycemic control, Dialysis consistent diet Further work up/management as per primary team. pt agreeing for surgery for Rt foot infection. 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 Dose meds/antibiotics for ESRD status. Avoid fleets enema/magnesium based laxatives. Thanks for allowing me to participate in care of your patient. Will follow patient with you. Please call if any Qs Dr Hernan Andino Office: [phone] Subjective: Noted events overnight. Patients doesn't feel okay. feels cold. Denies chest pain, palpitation, shortness of breath, leg swelling. Physical Examination: General Appearance: Comfortable, in no acute respiratory distress, co- operative. obese Vitals reviewed and noted as below Lungs: Normal respiratory rate/effort. Breath sounds bilateral equal and clear Heart: Normal rate. s1s2 normal. No rub or gallop. Extremities: RLE edema. Rt foot dressed, left BKA. Neurological: Patient is alert, awake and oriented to person, place and time. No focal deficit. Strength bilateral appropriate and equal Skin: Warm and dry. Normal turgor. No rash. Palpitation: Normal elasticity for age Abdomen: Abdomen is soft. Bowel sounds +. There is no abdominal tenderness, no guarding/rigidity or organomegaly. she is obese : kidney or bladder not palpable Access: permacath Labs/imaging reviewed. Past medical history, past surgical history, family history, social history, allergy reviewed Objective - Vital Signs/Intake and Output Vital Signs (last 24 hours): Temp Pulse Resp BP Pulse Ox 102.6 F H 110 H 20 107/63 94 L 09/27/16 15:51 09/27/16 08:02 09/27/16 08:02 09/27/16 08:02 09/27/16 08:02 - Medications Medications: Current Medications Acetaminophen (Tylenol 325mg Tab) 650 mg PO Q4 PRN PRN Reason: Fever >100.4 F Last Admin: 09/27/16 15:51 Dose: 650 mg Acetaminophen (Tylenol 325mg Tab) 650 mg PO Q4 PRN PRN Reason: Pain, moderate (4-7) Last Admin: 09/16/16 22:34 Dose: 650 mg Albuterol Sulfate (Albuterol 0.083% Inhal Barbie (2.5 Mg/3 Ml) Ud) 2.5 mg INH RQ4 PRN PRN Reason: Shortness of Breath Albuterol/Ipratropium (Duoneb 3 Mg/0.5 Mg (3 Ml) Ud) 3 ml INH RQ4 PRN PRN Reason: Shortness of Breath Apixaban (Eliquis) 5 mg PO BID [facility] PRN Reason: Protocol Last Admin: 09/27/16 09:51 Dose: 5 mg Aspirin (Ecotrin) 81 mg PO DAILY [facility] Last Admin: 09/27/16 09:35 Dose: 81 mg Atorvastatin Calcium (Lipitor) 40 mg PO DAILY [facility] Last Admin: 09/27/16 09:38 Dose: Not Given Benzonatate (Tessalon Perles) 200 mg PO TID PRN PRN Reason: Cough Last Admin: 09/20/16 08:16 Dose: 200 mg Cinacalcet (Sensipar) 30 mg PO DAILY [facility] Last Admin: 09/27/16 09:38 Dose: 30 mg Epoetin Tha (Procrit) 20,000 unit IV MWF [facility] Last Admin: 09/25/16 13:22 Dose: 20,000 unit Ergocalciferol (Drisdol 50,000 Intl Units Cap) 1 cap PO Q7D [facility] Stop: 11/06/16 11:16 Last Admin: 09/25/16 13:24 Dose: 1 cap Fluconazole (Diflucan) 100 mg PO DAILY [facility] Last Admin: 09/27/16 09:37 Dose: 100 mg Hydrocortisone (Anusol-Hc) 1 applic [place] BID [facility] Last Admin: 09/27/16 16:45 Dose: 1 applic Amikacin Sulfate 250 mg/ (Sodium Chloride) 101 mls @ 100.609 mls/hr IVPB MWF [facility] Last Admin: 09/27/16 11:06 Dose: 100.609 mls/hr Linezolid (Zyvox 600mg/300ml D5w) 600 mg in 300 mls @ 300 mls/hr IVPB Q12@0400, 1600 [facility] Last Admin: 09/27/16 15:49 Dose: 300 mls/hr Meropenem 500 mg/ Sodium (Chloride) 100 mls @ 100 mls/hr IVPB DAILY@0100 [facility] Last Admin: 09/27/16 00:04 Dose: 100 mls/hr Piperacillin Sod/Tazobactam (Sod 2.25 gm/ Sodium Chloride) 100 mls @ 100 mls/ hr IVPB Q12@0200,1400 [facility] Last Admin: 09/27/16 15:48 Dose: Not Given Insulin Detemir (Levemir) 30 units SC HS [facility] Last Admin: 09/26/16 22:49 Dose: 30 units Insulin Human Lispro (Humalog) 8 units SC AC [facility] Last Admin: 09/27/16 16:07 Dose: 8 units Lidocaine (Lidoderm) 1 ea TD DAILY [facility] Last Admin: 09/27/16 09:39 Dose: 1 ea Nystatin (Mycostatin Oint) 1 applic TOP TID [facility] Last Admin: 09/27/16 16:03 Dose: 1 applic Ondansetron HCl (Zofran Inj) 4 mg IVP Q6 PRN PRN Reason: Nausea/Vomiting Last Admin: 09/19/16 10:26 Dose: 4 mg Pantoprazole Sodium (Protonix Ec Tab) 40 mg PO DAILY [facility] Last Admin: 09/27/16 09:36 Dose: 40 mg Sevelamer HCl (Renagel) 1,600 mg PO TID [facility] Last Admin: 09/27/16 16:04 Dose: 1,600 mg Topiramate (Topamax) 50 mg PO BID [facility] Last Admin: 09/27/16 16:07 Dose: 50 mg Vitamin B Complex/Vit C/Folic Acid (Nephro-Ajay) 1 tab PO DAILY [facility] Last Admin: 09/27/16 09:51 Dose: 1 tab - Labs Labs: 09/25/16 17:19 09/25/16 17:19 PT 16.5 SECONDS (9.6-11.2) H 08/28/16 16:11 INR 1.59 (0.92-1.08) H 08/28/16 16:11 APTT 38.7 SECONDS (23.3-32.5) H 08/28/16 16:11
--- NOTE | 2016-09-27 19:51 | CP.PCM.PN ---
Subjective - Date & Time of Evaluation Date of Evaluation: 09/27/16 Time of Evaluation: 19:29 - Subjective Subjective: As a result of a conference involving all of the patient's treating physicians, the following considerations were reached: (1) There is infection involving the right foot/ankle/lower leg which has not responded to 5 weeks of 4 IV antibiotics (2) The circulation to the right foot is so impaired that the foot is not viable and cannot support ambulation (3) The patient is stable for surgery from a cardiorespiratory perspective and (4) Delay in amputation risks sepsis and even . CORPORATE RELATIONS DIRECTOR Dr. Claire Good the conference maintenance supervisor 2nd shift conveyed these considerations to the patient and her mother, both of whom agreed with the recommendation for surgery. Vascular surgeon Dr. Raffy Mccormack ([phone]) believes that a right below the knee amputation will be viable. He plans to perform this below the knee amputation on October 01. His partner Dr. Skyler Doran will assist in this. We have asked these two surgeons to obtain tissue at the time of amputation from the heel bone and from muscle - for aerobic, anaerobic, and fungal culture - to assist Dr. Lemon with antibiotic selection. The patient understands that the BKA may not be successful and that an above the knee amputation may be needed - although we are trying to avoid this. She has a positive attitude and will be a good candidate for rehabilitation. The patient continues on Eliquis and aspirin for now. Our pharmacy does have argatroban (3 vials) in stock, and there is a protocol for this anticoagulant available on the [employer] intranet. Dr. Evita Shepard will coordinate with the vascular surgeons regarding the timing and use of this drug since the patient cannot receive heparin but will need anticoagulation in the perioperative period. DM-II has been fairly well controlled. We are avoiding unnecessary and excessive arm sticks (fingersticks are prohibited) and relying on bloodwork done during hemodialysis. Results are pending tonight. Dr. Ambrose will manage insulin needs in the perioperative period. Prolonged menses continue to be debilitating. I discussed this with her certified veterinary technician, Dr. Tierney Larry. He indicated that in the not so far off future she will probably need a hysterectomy, but for now we will restart Provera 10mg po daily. He indicated that depo-Provera does not work as well as the oral form. The patient is to receive 2 units of rbc's tonight for Hgb of 8.1. Dr. Maguire's neurology notes appreciated - no further seizures, but since the patient did have seizure activity during initial episode of SIRS, we should continue Topamax for a total of 2 years. Nephrologists continue to manage hemodialysis and associated metabolic/ hematologic needs. Dr. Andino's note appreciated. Objective - Vital Signs/Intake and Output Vital Signs (last 24 hours): Temp Pulse Resp BP Pulse Ox 102.6 F H 133 H 18 107/63 94 L 09/27/16 17:13 09/27/16 17:13 09/27/16 17:13 09/27/16 08:02 09/27/16 17:13 - Medications Medications: Current Medications Acetaminophen (Tylenol 325mg Tab) 650 mg PO Q4 PRN PRN Reason: Fever >100.4 F Last Admin: 09/27/16 15:51 Dose: 650 mg Acetaminophen (Tylenol 325mg Tab) 650 mg PO Q4 PRN PRN Reason: Pain, moderate (4-7) Last Admin: 09/16/16 22:34 Dose: 650 mg Albuterol Sulfate (Albuterol 0.083% Inhal Barbie (2.5 Mg/3 Ml) Ud) 2.5 mg INH RQ4 PRN PRN Reason: Shortness of Breath Albuterol/Ipratropium (Duoneb 3 Mg/0.5 Mg (3 Ml) Ud) 3 ml INH RQ4 PRN PRN Reason: Shortness of Breath Apixaban (Eliquis) 5 mg PO BID [facility] PRN Reason: Protocol Last Admin: 09/27/16 17:30 Dose: 5 mg Aspirin (Ecotrin) 81 mg PO DAILY [facility] Last Admin: 09/27/16 09:35 Dose: 81 mg Atorvastatin Calcium (Lipitor) 40 mg PO DAILY [facility] Last Admin: 09/27/16 09:38 Dose: Not Given Benzonatate (Tessalon Perles) 200 mg PO TID PRN PRN Reason: Cough Last Admin: 09/20/16 08:16 Dose: 200 mg Cinacalcet (Sensipar) 30 mg PO DAILY [facility] Last Admin: 09/27/16 09:38 Dose: 30 mg Epoetin Tha (Procrit) 20,000 unit IV F [facility] Last Admin: 09/25/16 13:22 Dose: 20,000 unit Ergocalciferol (Drisdol 50,000 Intl Units Cap) 1 cap PO Q7D [facility] Stop: 11/06/16 11:16 Last Admin: 09/25/16 13:24 Dose: 1 cap Fluconazole (Diflucan) 100 mg PO DAILY [facility] Last Admin: 09/27/16 09:37 Dose: 100 mg Hydrocortisone (Anusol-Hc) 1 applic [place] BID [facility] Last Admin: 09/27/16 16:45 Dose: 1 applic Hydromorphone HCl (Dilaudid) 2 mg PO Q4 PRN PRN Reason: Pain, moderate (4-7) Hydromorphone HCl (Dilaudid) 1 mg IVP Q2H PRN PRN Reason: Pain, severe (8-10) Amikacin Sulfate 250 mg/ (Sodium Chloride) 101 mls @ 100.609 mls/hr IVPB [facility] Last Admin: 09/27/16 11:06 Dose: 100.609 mls/hr Linezolid (Zyvox 600mg/300ml D5w) 600 mg in 300 mls @ 300 mls/hr IVPB Q12@0400, 1600 [facility] Last Admin: 09/27/16 15:49 Dose: 300 mls/hr Meropenem 500 mg/ Sodium (Chloride) 100 mls @ 100 mls/hr IVPB DAILY@0100 [facility] Last Admin: 09/27/16 00:04 Dose: 100 mls/hr Piperacillin Sod/Tazobactam (Sod 2.25 gm/ Sodium Chloride) 100 mls @ 100 mls/ hr IVPB Q12@0200,1400 [facility] Last Admin: 09/27/16 15:48 Dose: Not Given Insulin Detemir (Levemir) 30 units SC HS [facility] Last Admin: 09/26/16 22:49 Dose: 30 units Insulin Human Lispro (Humalog) 8 units SC AC [facility] Last Admin: 09/27/16 16:07 Dose: 8 units Lidocaine (Lidoderm) 1 ea TD DAILY [facility] Last Admin: 09/27/16 09:39 Dose: 1 ea Medroxyprogesterone Acetate (Provera) 10 mg PO DAILY [facility] Nystatin (Mycostatin Oint) 1 applic TOP TID [facility] Last Admin: 09/27/16 16:03 Dose: 1 applic Ondansetron HCl (Zofran Inj) 4 mg IVP Q6 PRN PRN Reason: Nausea/Vomiting Last Admin: 09/19/16 10:26 Dose: 4 mg Pantoprazole Sodium (Protonix Ec Tab) 40 mg PO DAILY [facility] Last Admin: 09/27/16 09:36 Dose: 40 mg Sevelamer HCl (Renagel) 1,600 mg PO TID [facility] Last Admin: 09/27/16 16:04 Dose: 1,600 mg Topiramate (Topamax) 50 mg PO BID [facility] Last Admin: 09/27/16 16:07 Dose: 50 mg Vitamin B Complex/Vit C/Folic Acid (Nephro-Ajay) 1 tab PO DAILY [facility] Last Admin: 09/27/16 09:51 Dose: 1 tab - Labs Labs: 09/25/16 17:19 09/25/16 17:19 PT 16.5 SECONDS (9.6-11.2) H 08/28/16 16:11 INR 1.59 (0.92-1.08) H 08/28/16 16:11 APTT 38.7 SECONDS (23.3-32.5) H 08/28/16 16:11 - Constitutional Appears: Other (Sad, uncomfortable with right leg pain and fever earlier.) - Head Exam Head Exam: NORMAL INSPECTION - ENT Exam ENT Exam: Mucous Membranes Moist - Neck Exam Neck Exam: Normal Inspection - Respiratory Exam Respiratory Exam: Clear to Ausculation Bilateral - Cardiovascular Exam Cardiovascular Exam: REGULAR RHYTHM, +S1, +S2 - GI/Abdominal Exam GI & Abdominal Exam: Soft, Normal Bowel Sounds - Extremities Exam Additional comments: Right ankle/lower leg swollen, warm, tender to touch. Ankle dressing in place. Toes dark, shriveled, cool. No pulses. Left residual limb is warm, dry, with no lesions, non-tender. L hand is slightly edematous, non=tender. Missing 2,3,4th fingers, and 5th finger is contracted. R hand is missing 3rd finger, but is otherwise OK. Radial pulses are hard to feel, but hands are warm. - Back Exam Back Exam: NORMAL INSPECTION - Neurological Exam Neurological Exam: Alert, CN II-XII Intact, Oriented x3 Additional comments: Non-ambulatory at this time. - Psychiatric Exam Psychiatric exam: Anxious, Depressed - Skin Additional comments: Allevyn dressing on buttock. Calcium alginate dressings beneath breasts. Assessment and Plan (1) Osteomyelitis of ankle or foot Assessment & Plan: SEE SUBJECTIVE Status: Acute (2) ESRD (end stage renal disease) on dialysis Assessment & Plan: SEE SUBJECTIVE Status: Chronic (3) DM type 2 (diabetes mellitus, type 2) Assessment & Plan: SEE SUBJECTIVE Status: Chronic (4) Coagulopathy Assessment & Plan: SEE SUBJECTIVE Status: Chronic (5) Peripheral arterial occlusive disease Status: Chronic
[2016-09-27] MEDS: Insulin Detemir 100 Units/ml Inj SC SCH (22:08)
--- NOTE | 2016-09-27 22:28 | CP.PCM.PN ---
Subjective - Date & Time of Evaluation Date of Evaluation: 09/27/16 Time of Evaluation: 21:00 - Subjective Subjective: Her Right LE infection is uncontrollable with Antibiotics, a conference about the patient condition has decided to perform Right BKA on 10/01/2016 in an attempt to control her condition and avoid sepsis and . Patient and her mother accept the results of the Conference and the BKA for the time being is the best solution, hoping not to need AKA. There is no seizures on Topamax 50 mg Q12 hrs. Objective - Vital Signs/Intake and Output Vital Signs (last 24 hours): Temp Pulse Resp BP Pulse Ox 102.6 F H 133 H 18 107/63 94 L 09/27/16 17:13 09/27/16 17:13 09/27/16 17:13 09/27/16 08:02 09/27/16 17:13 - Medications Medications: Current Medications Acetaminophen (Tylenol 325mg Tab) 650 mg PO Q4 PRN PRN Reason: Fever >100.4 F Last Admin: 09/27/16 15:51 Dose: 650 mg Acetaminophen (Tylenol 325mg Tab) 650 mg PO Q4 PRN PRN Reason: Pain, moderate (4-7) Last Admin: 09/16/16 22:34 Dose: 650 mg Albuterol Sulfate (Albuterol 0.083% Inhal Barbie (2.5 Mg/3 Ml) Ud) 2.5 mg INH RQ4 PRN PRN Reason: Shortness of Breath Albuterol/Ipratropium (Duoneb 3 Mg/0.5 Mg (3 Ml) Ud) 3 ml INH RQ4 PRN PRN Reason: Shortness of Breath Apixaban (Eliquis) 5 mg PO BID [facility] PRN Reason: Protocol Last Admin: 09/27/16 17:30 Dose: 5 mg Aspirin (Ecotrin) 81 mg PO DAILY [facility] Last Admin: 09/27/16 09:35 Dose: 81 mg Atorvastatin Calcium (Lipitor) 40 mg PO DAILY [facility] Last Admin: 09/27/16 09:38 Dose: Not Given Benzonatate (Tessalon Perles) 200 mg PO TID PRN PRN Reason: Cough Last Admin: 09/20/16 08:16 Dose: 200 mg Cinacalcet (Sensipar) 30 mg PO DAILY [facility] Last Admin: 09/27/16 09:38 Dose: 30 mg Epoetin Tha (Procrit) 20,000 unit IV MWF [facility] Last Admin: 09/25/16 13:22 Dose: 20,000 unit Ergocalciferol (Drisdol 50,000 Intl Units Cap) 1 cap PO Q7D [facility] Stop: 11/06/16 11:16 Last Admin: 09/25/16 13:24 Dose: 1 cap Fluconazole (Diflucan) 100 mg PO DAILY [facility] Last Admin: 09/27/16 09:37 Dose: 100 mg Hydrocortisone (Anusol-Hc) 1 applic [place] BID [facility] Last Admin: 09/27/16 16:45 Dose: 1 applic Hydromorphone HCl (Dilaudid) 2 mg PO Q4 PRN PRN Reason: Pain, moderate (4-7) Hydromorphone HCl (Dilaudid) 1 mg IVP Q2H PRN PRN Reason: Pain, severe (8-10) Amikacin Sulfate 250 mg/ (Sodium Chloride) 101 mls @ 100.609 mls/hr IVPB [facility] Last Admin: 09/27/16 11:06 Dose: 100.609 mls/hr Linezolid (Zyvox 600mg/300ml D5w) 600 mg in 300 mls @ 300 mls/hr IVPB Q12@0400, 1600 [facility] Last Admin: 09/27/16 15:49 Dose: 300 mls/hr Meropenem 500 mg/ Sodium (Chloride) 100 mls @ 100 mls/hr IVPB DAILY@0100 [facility] Last Admin: 09/27/16 00:04 Dose: 100 mls/hr Piperacillin Sod/Tazobactam (Sod 2.25 gm/ Sodium Chloride) 100 mls @ 100 mls/ hr IVPB Q12@0200,1400 [facility] Last Admin: 09/27/16 15:48 Dose: Not Given Insulin Detemir (Levemir) 30 units SC HS [facility] Last Admin: 09/27/16 22:08 Dose: 30 units Insulin Human Lispro (Humalog) 8 units SC AC [facility] Last Admin: 09/27/16 16:07 Dose: 8 units Lidocaine (Lidoderm) 1 ea TD DAILY [facility] Last Admin: 09/27/16 09:39 Dose: 1 ea Medroxyprogesterone Acetate (Provera) 10 mg PO DAILY [facility] Last Admin: 09/27/16 22:06 Dose: 10 mg Nystatin (Mycostatin Oint) 1 applic TOP TID [facility] Last Admin: 09/27/16 16:03 Dose: 1 applic Ondansetron HCl (Zofran Inj) 4 mg IVP Q6 PRN PRN Reason: Nausea/Vomiting Last Admin: 09/19/16 10:26 Dose: 4 mg Pantoprazole Sodium (Protonix Ec Tab) 40 mg PO DAILY [facility] Last Admin: 09/27/16 09:36 Dose: 40 mg Sevelamer HCl (Renagel) 1,600 mg PO TID [facility] Last Admin: 09/27/16 16:04 Dose: 1,600 mg Topiramate (Topamax) 50 mg PO BID [facility] Last Admin: 09/27/16 16:07 Dose: 50 mg Vitamin B Complex/Vit C/Folic Acid (Nephro-Ajay) 1 tab PO DAILY [facility] Last Admin: 09/27/16 09:51 Dose: 1 tab - Labs Labs: 09/25/16 17:19 09/25/16 17:19 PT 16.5 SECONDS (9.6-11.2) H 08/28/16 16:11 INR 1.59 (0.92-1.08) H 08/28/16 16:11 APTT 38.7 SECONDS (23.3-32.5) H 08/28/16 16:11 Assessment and Plan (1) Diabetes Status: Chronic (2) ESRD (end stage renal disease) Status: Chronic (3) Cellulitis of leg Status: Acute (4) Hyperlipidemia Status: Chronic (5) Back pain Status: Acute (6) Bacteremia due to Gram-negative bacteria Status: Acute (7) Diabetes mellitus type 2 with peripheral artery disease Status: Acute (8) PVD (peripheral vascular disease) Status: Acute
[2016-09-28] MEDS: Meropenem 500 MG in Sodium Chloride 0.9% 100 ML IVPB SCH (02:03)
[2016-09-28] MEDS: Linezolid 600 mg in D5W 300 ml 600 MG/300 ML BAG IVPB SCH ×2 (04:00→17:07)
[2016-09-28] MEDS: Hydrocortisone 2.5% (Rectal) CREAM PR SCH ×2 (09:08→17:01)
[2016-09-28] MEDS: Insulin Lispro (humaLOG) 100 Units/ml Inj SC SCH ×3 (09:12→17:03)
[2016-09-28] MEDS: Lidocaine 5% Patch TD SCH (09:13)
[2016-09-28] MEDS: Nystatin Ointment TOP SCH ×3 (09:15→17:04)
[2016-09-28] MEDS: Multivitamin Vitamin B Complex (Nephro-Vite) Tab PO SCH (09:16)
[2016-09-28] MEDS: Pantoprazole 40 mg EC Tab PO SCH (09:16)
--- NOTE | 2016-09-28 11:29 | CP.PCM.PN ---
Subjective - Date & Time of Evaluation Date of Evaluation: 09/28/16 Time of Evaluation: 11:26 - Subjective Subjective: Pt seems to be resigned to the right leg amputation. She was transfused 2 units of packed cells yesterday. Wll ck cbc today. Would stop the ecotrin and the xarelto until after surgery. If the vascular surgeon needs argatroban during surgery, pt will have to be transferred to the ICU. Objective - Vital Signs/Intake and Output Vital Signs (last 24 hours): Temp Pulse Resp BP Pulse Ox 97.7 F 62 18 125/76 95 09/28/16 08:33 09/28/16 08:33 09/28/16 08:33 09/28/16 08:33 09/28/16 08:33 - Medications Medications: Current Medications Acetaminophen (Tylenol 325mg Tab) 650 mg PO Q4 PRN PRN Reason: Fever >100.4 F Last Admin: 09/27/16 15:51 Dose: 650 mg Acetaminophen (Tylenol 325mg Tab) 650 mg PO Q4 PRN PRN Reason: Pain, moderate (4-7) Last Admin: 09/16/16 22:34 Dose: 650 mg Albuterol Sulfate (Albuterol 0.083% Inhal Barbie (2.5 Mg/3 Ml) Ud) 2.5 mg INH RQ4 PRN PRN Reason: Shortness of Breath Albuterol/Ipratropium (Duoneb 3 Mg/0.5 Mg (3 Ml) Ud) 3 ml INH RQ4 PRN PRN Reason: Shortness of Breath Apixaban (Eliquis) 5 mg PO BID [facility] PRN Reason: Protocol Last Admin: 09/27/16 17:30 Dose: 5 mg Aspirin (Ecotrin) 81 mg PO DAILY [facility] Last Admin: 09/28/16 10:54 Dose: Not Given Atorvastatin Calcium (Lipitor) 40 mg PO DAILY [facility] Last Admin: 09/28/16 09:15 Dose: 40 mg Benzonatate (Tessalon Perles) 200 mg PO TID PRN PRN Reason: Cough Last Admin: 09/28/16 05:27 Dose: 200 mg Cinacalcet (Sensipar) 30 mg PO DAILY [facility] Last Admin: 09/28/16 09:19 Dose: 30 mg Epoetin Tha (Procrit) 20,000 unit IV MWF [facility] Last Admin: 09/25/16 13:22 Dose: 20,000 unit Ergocalciferol (Drisdol 50,000 Intl Units Cap) 1 cap PO Q7D [facility] Stop: 11/06/16 11:16 Last Admin: 09/25/16 13:24 Dose: 1 cap Fluconazole (Diflucan) 100 mg PO DAILY [facility] Last Admin: 09/28/16 09:08 Dose: 100 mg Hydrocortisone (Anusol-Hc) 1 applic [place] BID [facility] Last Admin: 09/28/16 09:08 Dose: Not Given Hydromorphone HCl (Dilaudid) 2 mg PO Q4 PRN PRN Reason: Pain, moderate (4-7) Last Admin: 09/28/16 00:46 Dose: 2 mg Hydromorphone HCl (Dilaudid) 1 mg IVP Q2H PRN PRN Reason: Pain, severe (8-10) Amikacin Sulfate 250 mg/ (Sodium Chloride) 101 mls @ 100.609 mls/hr [facility] Last Admin: 09/27/16 11:06 Dose: 100.609 mls/hr Linezolid (Zyvox 600mg/300ml D5w) 600 mg in 300 mls @ 300 mls/hr IVPB Q12@0400, 1600 [facility] Last Admin: 09/28/16 04:00 Dose: 300 mls/hr Meropenem 500 mg/ Sodium (Chloride) 100 mls @ 100 mls/hr IVPB DAILY@0100 [facility] Last Admin: 09/28/16 02:03 Dose: 100 mls/hr Piperacillin Sod/Tazobactam (Sod 2.25 gm/ Sodium Chloride) 100 mls @ 100 mls/ hr IVPB Q12@0200,1400 [facility] Last Admin: 09/28/16 03:00 Dose: 100 mls/hr Insulin Detemir (Levemir) 30 units SC HS [facility] Last Admin: 09/27/16 22:08 Dose: 30 units Insulin Human Lispro (Humalog) 8 units SC AC [facility] Last Admin: 09/28/16 09:12 Dose: 8 units Lidocaine (Lidoderm) 1 ea TD DAILY [facility] Last Admin: 09/28/16 09:13 Dose: 1 ea Medroxyprogesterone Acetate (Provera) 10 mg PO DAILY [facility] Last Admin: 09/28/16 09:17 Dose: 10 mg Nystatin (Mycostatin Oint) 1 applic TOP TID [facility] Last Admin: 09/28/16 09:15 Dose: 1 applic Ondansetron HCl (Zofran Inj) 4 mg IVP Q6 PRN PRN Reason: Nausea/Vomiting Last Admin: 09/19/16 10:26 Dose: 4 mg Pantoprazole Sodium (Protonix Ec Tab) 40 mg PO DAILY [facility] Last Admin: 09/28/16 09:16 Dose: 40 mg Sevelamer HCl (Renagel) 1,600 mg PO TID [facility] Last Admin: 09/28/16 09:17 Dose: 1,600 mg Topiramate (Topamax) 50 mg PO BID [facility] Last Admin: 09/28/16 09:21 Dose: 50 mg Vitamin B Complex/Vit C/Folic Acid (Nephro-Ajay) 1 tab PO DAILY [facility] Last Admin: 09/28/16 09:16 Dose: 1 tab - Labs Labs: 09/25/16 17:19 09/25/16 17:19 PT 16.5 SECONDS (9.6-11.2) H 08/28/16 16:11 INR 1.59 (0.92-1.08) H 08/28/16 16:11 APTT 38.7 SECONDS (23.3-32.5) H 08/28/16 16:11
[2016-09-28 14:15] LABS: BASO # 0.1 K/uL (0.0-0.2); BASO % 0.7 % (0.0-2.0); EOS # 0.3 K/uL (0.0-0.7); EOS % 2.5 % (0.0-4.0); HEMATOCRIT 25.7 % (34.0-47.0); LYMPH # 1.1 K/uL (1.0-4.3); LYMPH % 9.8 % (20.0-40.0); MEAN CELL VOLUME 89.8 fl (81.0-99.0); MEAN CORPUSCULAR HEMOGLOBIN 29.1 pg (27.0-31.0); MEAN CORPUSCULAR HGB CONC 32.5 g/dL (33.0-37.0); MEAN PLATELET VOLUME 8.8 fl (7.2-11.7); MONO # 1.3 K/uL (0.0-0.8); MONO % 11.7 % (0.0-10.0); NEUT % 75.3 % (50.0-75.0); PLATELET COUNT 227 K/uL (130-400); RED CELL DISTRIBUTION WIDTH 18.6 % (11.5-14.5); WHITE BLOOD COUNT 10.7 K/uL (4.8-10.8)
--- NOTE | 2016-09-28 15:30 | CP.PCM.PN ---
Subjective - Date & Time of Evaluation Date of Evaluation: 09/28/16 Time of Evaluation: 12:40 - Subjective Subjective: Feels better today Objective - Vital Signs/Intake and Output Vital Signs (last 24 hours): Temp Pulse Resp BP Pulse Ox 97.7 F 62 18 125/76 95 09/28/16 08:33 09/28/16 08:33 09/28/16 08:33 09/28/16 08:33 09/28/16 08:33 - Medications Medications: Current Medications Acetaminophen (Tylenol 325mg Tab) 650 mg PO Q4 PRN PRN Reason: Fever >100.4 F Last Admin: 09/27/16 15:51 Dose: 650 mg Acetaminophen (Tylenol 325mg Tab) 650 mg PO Q4 PRN PRN Reason: Pain, moderate (4-7) Last Admin: 09/16/16 22:34 Dose: 650 mg Albuterol Sulfate (Albuterol 0.083% Inhal Barbie (2.5 Mg/3 Ml) Ud) 2.5 mg INH RQ4 PRN PRN Reason: Shortness of Breath Albuterol/Ipratropium (Duoneb 3 Mg/0.5 Mg (3 Ml) Ud) 3 ml INH RQ4 PRN PRN Reason: Shortness of Breath Apixaban (Eliquis) 5 mg PO BID [facility] PRN Reason: Protocol Last Admin: 09/28/16 14:40 Dose: Not Given Aspirin (Ecotrin) 81 mg PO DAILY [facility] Last Admin: 09/28/16 10:54 Dose: Not Given Atorvastatin Calcium (Lipitor) 40 mg PO DAILY [facility] Last Admin: 09/28/16 09:15 Dose: 40 mg Benzonatate (Tessalon Perles) 200 mg PO TID PRN PRN Reason: Cough Last Admin: 09/28/16 05:27 Dose: 200 mg Cinacalcet (Sensipar) 30 mg PO DAILY [facility] Last Admin: 09/28/16 09:19 Dose: 30 mg Epoetin Tah (Procrit) 20,000 unit IV MWF [facility] Last Admin: 09/25/16 13:22 Dose: 20,000 unit Ergocalciferol (Drisdol 50,000 Intl Units Cap) 1 cap PO Q7D [facility] Stop: 11/06/16 11:16 Last Admin: 09/25/16 13:24 Dose: 1 cap Fluconazole (Diflucan) 100 mg PO DAILY [facility] Last Admin: 09/28/16 09:08 Dose: 100 mg Hydrocortisone (Anusol-Hc) 1 applic [place] BID [facility] Last Admin: 09/28/16 09:08 Dose: Not Given Hydromorphone HCl (Dilaudid) 2 mg PO Q4 PRN PRN Reason: Pain, moderate (4-7) Last Admin: 09/28/16 00:46 Dose: 2 mg Hydromorphone HCl (Dilaudid) 1 mg IVP Q2H PRN PRN Reason: Pain, severe (8-10) Amikacin Sulfate 250 mg/ (Sodium Chloride) 101 mls @ 100.609 mls/hr IVPB [facility] Last Admin: 09/27/16 11:06 Dose: 100.609 mls/hr Linezolid (Zyvox 600mg/300ml D5w) 600 mg in 300 mls @ 300 mls/hr IVPB Q12@0400, 1600 [facility] Last Admin: 09/28/16 04:00 Dose: 300 mls/hr Meropenem 500 mg/ Sodium (Chloride) 100 mls @ 100 mls/hr IVPB DAILY@0100 [facility] Last Admin: 09/28/16 02:03 Dose: 100 mls/hr Piperacillin Sod/Tazobactam (Sod 2.25 gm/ Sodium Chloride) 100 mls @ 100 mls/ hr IVPB Q12@0200,1400 [facility] Last Admin: 09/28/16 14:43 Dose: 100 mls/hr Insulin Detemir (Levemir) 30 units SC HS [facility] Last Admin: 09/27/16 22:08 Dose: 30 units Insulin Human Lispro (Humalog) 8 units SC AC [facility] Last Admin: 09/28/16 11:30 Dose: 8 units Lidocaine (Lidoderm) 1 ea TD DAILY [facility] Last Admin: 09/28/16 09:13 Dose: 1 ea Medroxyprogesterone Acetate (Provera) 10 mg PO DAILY [facility] Last Admin: 09/28/16 09:17 Dose: 10 mg Nystatin (Mycostatin Oint) 1 applic TOP TID [facility] Last Admin: 09/28/16 14:51 Dose: 1 applic Ondansetron HCl (Zofran Inj) 4 mg IVP Q6 PRN PRN Reason: Nausea/Vomiting Last Admin: 09/19/16 10:26 Dose: 4 mg Pantoprazole Sodium (Protonix Ec Tab) 40 mg PO DAILY [facility] Last Admin: 09/28/16 09:16 Dose: 40 mg Sevelamer HCl (Renagel) 1,600 mg PO TID [facility] Last Admin: 09/28/16 13:00 Dose: 1,600 mg Topiramate (Topamax) 50 mg PO BID [facility] Last Admin: 09/28/16 09:21 Dose: 50 mg Vitamin B Complex/Vit C/Folic Acid (Nephro-Ajay) 1 tab PO DAILY [facility] Last Admin: 09/28/16 09:16 Dose: 1 tab - Labs Labs: 09/28/16 13:00 09/25/16 17:19 PT 16.5 SECONDS (9.6-11.2) H 08/28/16 16:11 INR 1.59 (0.92-1.08) H 08/28/16 16:11 APTT 38.7 SECONDS (23.3-32.5) H 08/28/16 16:11 - Respiratory Exam Additional comments: Lungs clear - Cardiovascular Exam Cardiovascular Exam: REGULAR RHYTHM - Extremities Exam Additional comments: Rt BKA Assessment and Plan - Assessment and Plan (Free Text) Assessment: ESRDon HD Rt foot wound PVD IDDM Plan: Continue HD MWF [facility] profile
[2016-09-28 17:09] LABS: EOSINOPHIL 2 % (0-7); MYELOCYTE 1 % (0-0); NEUTROPHIL 78 % (42-75); STOMATOCYTES SLIGHT; TOTAL CELLS COUNTED 100
--- NOTE | 2016-09-28 18:05 | CP.PCM.PN ---
Subjective - Date & Time of Evaluation Date of Evaluation: 09/28/16 Time of Evaluation: 16:30 - Subjective Subjective: PLEASE REFER TO MY LENGTHY NOTE OF 09/27/16 FOR CLINICAL UPDATE AND CARE PLAN. Right below the knee amputation is planned for the early afternoon of 10/01 - Friday. Eliquis and aspirin have been stopped. After discussion with Dr. Evita Shepard, and vascular surgeons ( Drs. Mccormack and Andreea) it was considered that argatroban would not be necessary prior to surgery. Once hemostasis has been assured after surgery, the Eliquis and aspirin can be restarted. Should argatroban be deemed to be necessary, it can be started and acts immediately, according to Dr. Evita Shepard. Diabestes has been controlled. I will discuss with Dr. Ambrose the management on since the patient will be NPO after midnight the day before surgery . To continue the same antibiotics for now. Tisse ultures from bone and muscle are to be obtained at the time of surgery. FRANCA POLK: The hemoglobin was 8.3 on 09/26 and is today 8.2 after 2 units of red blood cells ? The patient has good color and general sense of well-geing , which suggests that the 8.2 level may be in error (although it was drawn from a peripheral vein and not from the PICC line). I also do not see the cmp or the pt/ptt ??? Will reorder labs for the am: CBC, CMP, PT/PTT/INR. Objective - Vital Signs/Intake and Output Vital Signs (last 24 hours): Temp Pulse Resp BP Pulse Ox 97.7 F 60 20 100/70 98 09/28/16 16:28 09/28/16 16:28 09/28/16 16:28 09/28/16 16:28 09/28/16 16:28 - Medications Medications: Current Medications Acetaminophen (Tylenol 325mg Tab) 650 mg PO Q4 PRN PRN Reason: Fever >100.4 F Last Admin: 09/27/16 15:51 Dose: 650 mg Acetaminophen (Tylenol 325mg Tab) 650 mg PO Q4 PRN PRN Reason: Pain, moderate (4-7) Last Admin: 09/16/16 22:34 Dose: 650 mg Albuterol Sulfate (Albuterol 0.083% Inhal Barbie (2.5 Mg/3 Ml) Ud) 2.5 mg INH RQ4 PRN PRN Reason: Shortness of Breath Albuterol/Ipratropium (Duoneb 3 Mg/0.5 Mg (3 Ml) Ud) 3 ml INH RQ4 PRN PRN Reason: Shortness of Breath Apixaban (Eliquis) 5 mg PO BID [facility] PRN Reason: Protocol Last Admin: 09/28/16 17:02 Dose: Not Given Aspirin (Ecotrin) 81 mg PO DAILY [facility] Last Admin: 09/28/16 10:54 Dose: Not Given Atorvastatin Calcium (Lipitor) 40 mg PO DAILY [facility] Last Admin: 09/28/16 09:15 Dose: 40 mg Benzonatate (Tessalon Perles) 200 mg PO TID PRN PRN Reason: Cough Last Admin: 09/28/16 05:27 Dose: 200 mg Cinacalcet (Sensipar) 30 mg PO DAILY [facility] Last Admin: 09/28/16 09:19 Dose: 30 mg Epoetin Tha (Procrit) 20,000 unit IV [facility] [place] Last Admin: 09/25/16 13:22 Dose: 20,000 unit Ergocalciferol (Drisdol 50,000 Intl Units Cap) 1 cap PO Q7D [facility] Stop: 11/06/16 11:16 Last Admin: 09/25/16 13:24 Dose: 1 cap Fluconazole (Diflucan) 100 mg PO DAILY [facility] Last Admin: 09/28/16 09:08 Dose: 100 mg Hydrocortisone (Anusol-Hc) 1 applic [place] BID [facility] Last Admin: 09/28/16 17:01 Dose: Not Given Hydromorphone HCl (Dilaudid) 2 mg PO Q4 PRN PRN Reason: Pain, moderate (4-7) Last Admin: 09/28/16 00:46 Dose: 2 mg Hydromorphone HCl (Dilaudid) 1 mg IVP Q2H PRN PRN Reason: Pain, severe (8-10) Amikacin Sulfate 250 mg/ (Sodium Chloride) 101 mls @ 100.609 mls/hr IVPB MWF [facility] Last Admin: 09/27/16 11:06 Dose: 100.609 mls/hr Linezolid (Zyvox 600mg/300ml D5w) 600 mg in 300 mls @ 300 mls/hr IVPB Q12@0400, 1600 [facility] Last Admin: 09/28/16 17:07 Dose: 300 mls/hr Meropenem 500 mg/ Sodium (Chloride) 100 mls @ 100 mls/hr IVPB DAILY@0100 [facility] Last Admin: 09/28/16 02:03 Dose: 100 mls/hr Piperacillin Sod/Tazobactam (Sod 2.25 gm/ Sodium Chloride) 100 mls @ 100 mls/ hr IVPB Q12@0200,1400 [facility] Last Admin: 09/28/16 14:43 Dose: 100 mls/hr Insulin Detemir (Levemir) 30 units SC HS [facility] Last Admin: 09/27/16 22:08 Dose: 30 units Insulin Human Lispro (Humalog) 8 units SC AC [facility] Last Admin: 09/28/16 17:03 Dose: 8 units Lidocaine (Lidoderm) 1 ea TD DAILY [facility] Last Admin: 09/28/16 09:13 Dose: 1 ea Medroxyprogesterone Acetate (Provera) 10 mg PO DAILY [facility] Last Admin: 09/28/16 09:17 Dose: 10 mg Nystatin (Mycostatin Oint) 1 applic TOP TID [facility] Last Admin: 09/28/16 17:04 Dose: 1 applic Ondansetron HCl (Zofran Inj) 4 mg IVP Q6 PRN PRN Reason: Nausea/Vomiting Last Admin: 09/19/16 10:26 Dose: 4 mg Pantoprazole Sodium (Protonix Ec Tab) 40 mg PO DAILY [facility] Last Admin: 09/28/16 09:16 Dose: 40 mg Sevelamer HCl (Renagel) 1,600 mg PO TID [facility] Last Admin: 09/28/16 17:05 Dose: 1,600 mg Topiramate (Topamax) 50 mg PO BID [facility] Last Admin: 09/28/16 17:07 Dose: 50 mg Vitamin B Complex/Vit C/Folic Acid (Nephro-Ajay) 1 tab PO DAILY [facility] Last Admin: 09/28/16 09:16 Dose: 1 tab - Labs Labs: 09/28/16 13:00 09/25/16 17:19 PT 16.5 SECONDS (9.6-11.2) H 08/28/16 16:11 INR 1.59 (0.92-1.08) H 08/28/16 16:11 APTT 38.7 SECONDS (23.3-32.5) H 08/28/16 16:11 NOTE THAT THE CHEMISTRIES AND THE COAGULATION DATA ARE FROM PREVIOUS DAYS - NOT YESTERDAY !! - Constitutional Appears: No Acute Distress - Head Exam Head Exam: NORMAL INSPECTION - Eye Exam Eye Exam: absent: Normal appearance - ENT Exam ENT Exam: Mucous Membranes Moist - Neck Exam Neck Exam: Normal Inspection Additional comments: Right subclavian permacath is intact. - Respiratory Exam Respiratory Exam: Clear to Ausculation Bilateral, NORMAL BREATHING PATTERN - Cardiovascular Exam Cardiovascular Exam: REGULAR RHYTHM, +S1, +S2 - Extremities Exam Additional comments: R lower leg is warm, tender, swollen as before. The ankle is dressed. Otherwise no changes. - Back Exam Back Exam: NORMAL INSPECTION - Skin Additional comments: R buttock with Allevyn dressing. Assessment and Plan (1) Osteomyelitis of ankle or foot Assessment & Plan: FOR BKA AMPUTATION ON 10/01/16. SEE SUBJECTIVE. CURRENT LABS NEEDED, ORDERS WRITTEN. ELIQUIS AND ASA ON HOLD. Status: Acute (2) ESRD (end stage renal disease) on dialysis Status: Chronic (3) DM type 2 (diabetes mellitus, type 2) Status: Chronic (4) Coagulopathy Status: Chronic (5) Peripheral arterial occlusive disease Status: Chronic
[2016-09-28] MEDS: Insulin Detemir 100 Units/ml Inj SC SCH (23:13)
--- NOTE | 2016-09-28 23:29 | CP.PCM.PN ---
Subjective - Date & Time of Evaluation Date of Evaluation: 09/28/16 Time of Evaluation: 21:00 - Subjective Subjective: She has a Hb of 8.2 and is continuing her Antibiotics. She will have her amputation BKA on 10/01/2016 due to her serious lower leg infection that might cause her serious complications and may endanger her life. She is to continue her Po Topamax 50 mg Q 12 hrs for 2 years. Objective - Vital Signs/Intake and Output Vital Signs (last 24 hours): Temp Pulse Resp BP Pulse Ox 97.7 F 60 20 100/70 98 09/28/16 16:28 09/28/16 16:28 09/28/16 16:28 09/28/16 16:28 09/28/16 16:28 - Medications Medications: Current Medications Acetaminophen (Tylenol 325mg Tab) 650 mg PO Q4 PRN PRN Reason: Fever >100.4 F Last Admin: 09/27/16 15:51 Dose: 650 mg Acetaminophen (Tylenol 325mg Tab) 650 mg PO Q4 PRN PRN Reason: Pain, moderate (4-7) Last Admin: 09/16/16 22:34 Dose: 650 mg Albuterol Sulfate (Albuterol 0.083% Inhal Barbie (2.5 Mg/3 Ml) Ud) 2.5 mg INH RQ4 PRN PRN Reason: Shortness of Breath Albuterol/Ipratropium (Duoneb 3 Mg/0.5 Mg (3 Ml) Ud) 3 ml INH RQ4 PRN PRN Reason: Shortness of Breath Apixaban (Eliquis) 5 mg PO BID [facility] PRN Reason: Protocol Last Admin: 09/28/16 17:02 Dose: Not Given Aspirin (Ecotrin) 81 mg PO DAILY [facility] Last Admin: 09/28/16 10:54 Dose: Not Given Atorvastatin Calcium (Lipitor) 40 mg PO DAILY [facility] Last Admin: 09/28/16 09:15 Dose: 40 mg Benzonatate (Tessalon Perles) 200 mg PO TID PRN PRN Reason: Cough Last Admin: 09/28/16 05:27 Dose: 200 mg Cinacalcet (Sensipar) 30 mg PO DAILY [facility] Last Admin: 09/28/16 09:19 Dose: 30 mg Epoetin Tha (Procrit) 20,000 unit IV MWF [facility] Last Admin: 09/25/16 13:22 Dose: 20,000 unit Ergocalciferol (Drisdol 50,000 Intl Units Cap) 1 cap PO Q7D [facility] Stop: 11/06/16 11:16 Last Admin: 09/25/16 13:24 Dose: 1 cap Fluconazole (Diflucan) 100 mg PO DAILY [facility] Last Admin: 09/28/16 09:08 Dose: 100 mg Hydrocortisone (Anusol-Hc) 1 applic [place] BID [facility] Last Admin: 09/28/16 17:01 Dose: Not Given Hydromorphone HCl (Dilaudid) 2 mg PO Q4 PRN PRN Reason: Pain, moderate (4-7) Last Admin: 09/28/16 23:12 Dose: 2 mg Hydromorphone HCl (Dilaudid) 1 mg IVP Q2H PRN PRN Reason: Pain, severe (8-10) Amikacin Sulfate 250 mg/ (Sodium Chloride) 101 mls @ 100.609 mls/hr IVPB [facility] Last Admin: 09/27/16 11:06 Dose: 100.609 mls/hr Linezolid (Zyvox 600mg/300ml D5w) 600 mg in 300 mls @ 300 mls/hr IVPB Q12@0400, 1600 [facility] Last Admin: 09/28/16 17:07 Dose: 300 mls/hr Meropenem 500 mg/ Sodium (Chloride) 100 mls @ 100 mls/hr IVPB DAILY@0100 [facility] Last Admin: 09/28/16 02:03 Dose: 100 mls/hr Piperacillin Sod/Tazobactam (Sod 2.25 gm/ Sodium Chloride) 100 mls @ 100 mls/ hr IVPB Q12@0200,1400 [facility] Last Admin: 09/28/16 14:43 Dose: 100 mls/hr Insulin Detemir (Levemir) 30 units SC HS [facility] Last Admin: 09/27/16 22:08 Dose: 30 units Insulin Human Lispro (Humalog) 8 units SC AC [facility] Last Admin: 09/28/16 17:03 Dose: 8 units Lidocaine (Lidoderm) 1 ea TD DAILY [facility] Last Admin: 09/28/16 09:13 Dose: 1 ea Medroxyprogesterone Acetate (Provera) 10 mg PO DAILY [facility] Last Admin: 09/28/16 09:17 Dose: 10 mg Nystatin (Mycostatin Oint) 1 applic TOP TID [facility] Last Admin: 09/28/16 17:04 Dose: 1 applic Ondansetron HCl (Zofran Inj) 4 mg IVP Q6 PRN PRN Reason: Nausea/Vomiting Last Admin: 09/19/16 10:26 Dose: 4 mg Pantoprazole Sodium (Protonix Ec Tab) 40 mg PO DAILY [facility] Last Admin: 09/28/16 09:16 Dose: 40 mg Sevelamer HCl (Renagel) 1,600 mg PO TID [facility] Last Admin: 09/28/16 17:05 Dose: 1,600 mg Topiramate (Topamax) 50 mg PO BID [facility] Last Admin: 09/28/16 17:07 Dose: 50 mg Vitamin B Complex/Vit C/Folic Acid (Nephro-Ajay) 1 tab PO DAILY [facility] Last Admin: 09/28/16 09:16 Dose: 1 tab - Labs Labs: 09/28/16 13:00 09/25/16 17:19 PT 16.5 SECONDS (9.6-11.2) H 08/28/16 16:11 INR 1.59 (0.92-1.08) H 08/28/16 16:11 APTT 38.7 SECONDS (23.3-32.5) H 08/28/16 16:11 Assessment and Plan (1) Diabetes Status: Chronic (2) ESRD (end stage renal disease) Status: Chronic (3) Cellulitis of leg Status: Acute (4) Hyperlipidemia Status: Chronic (5) Back pain Status: Acute (6) Bacteremia due to Gram-negative bacteria Status: Acute (7) Diabetes mellitus type 2 with peripheral artery disease Status: Acute (8) PVD (peripheral vascular disease) Status: Acute
[2016-09-29] MEDS: Meropenem 500 MG in Sodium Chloride 0.9% 100 ML IVPB SCH (01:23)
[2016-09-29] MEDS: Linezolid 600 mg in D5W 300 ml 600 MG/300 ML BAG IVPB SCH ×2 (04:30→16:18)
[2016-09-29 07:49] LABS: BASO # 0.1 K/uL (0.0-0.2); BASO % 0.7 % (0.0-2.0); EOS # 0.3 K/uL (0.0-0.7); HEMATOCRIT 23.5 % (34.0-47.0); LYMPH # 1.4 K/uL (1.0-4.3); LYMPH % 13.5 % (20.0-40.0); MEAN CELL VOLUME 89.5 fl (81.0-99.0); MEAN CORPUSCULAR HEMOGLOBIN 29.6 pg (27.0-31.0); MEAN PLATELET VOLUME 8.8 fl (7.2-11.7); MONO # 1.2 K/uL (0.0-0.8); MONO % 11.5 % (0.0-10.0); NEUT # 7.4 K/uL (1.8-7.0); NEUT % 71.3 % (50.0-75.0); NRBC % 0.1 % (0.0-0.0); PLATELET COUNT 220 K/uL (130-400); RED CELL DISTRIBUTION WIDTH 18.6 % (11.5-14.5); WHITE BLOOD COUNT 10.4 K/uL (4.8-10.8)
[2016-09-29 07:57] LABS: ALB/GLOB RATIO 0.7 (1.0-2.1); BILIRUBIN,TOTAL 0.6 mg/dl (0.2-1.3); CALCIUM 8.8 mg/dL (8.4-10.2); POTASSIUM 3.4 MMOL/L (3.6-5.0); TOTAL PROTEIN 8.1 G/DL (6.3-8.2)
[2016-09-29 07:59] LABS: PARTIAL THROMBOPLASTIN TIME 32.5 SECONDS (23.3-32.5)
[2016-09-29] MEDS: Multivitamin Vitamin B Complex (Nephro-Vite) Tab PO SCH (08:52)
[2016-09-29] MEDS: Nystatin Ointment TOP SCH ×3 (08:52→16:57)
[2016-09-29] MEDS: Pantoprazole 40 mg EC Tab PO SCH (08:53)
[2016-09-29] MEDS: Lidocaine 5% Patch TD SCH ×2 (08:54→14:04)
[2016-09-29] MEDS: Insulin Lispro (humaLOG) 100 Units/ml Inj SC SCH ×3 (08:54→16:57)
[2016-09-29] MEDS: Hydrocortisone 2.5% (Rectal) CREAM PR SCH ×2 (10:22→16:58)
--- NOTE | 2016-09-29 12:34 | CP.PCM.PN ---
Subjective - Date & Time of Evaluation Date of Evaluation: 09/29/16 Time of Evaluation: 12:00 - Subjective Subjective: Appears comfortable in bed Objective - Vital Signs/Intake and Output Vital Signs (last 24 hours): Temp Pulse Resp BP Pulse Ox 98.0 F 102 H 20 113/56 L 96 09/29/16 09:00 09/29/16 09:00 09/29/16 09:00 09/29/16 09:00 09/29/16 09:00 - Medications Medications: Current Medications Acetaminophen (Tylenol 325mg Tab) 650 mg PO Q4 PRN PRN Reason: Fever >100.4 F Last Admin: 09/27/16 15:51 Dose: 650 mg Acetaminophen (Tylenol 325mg Tab) 650 mg PO Q4 PRN PRN Reason: Pain, moderate (4-7) Last Admin: 09/16/16 22:34 Dose: 650 mg Albuterol Sulfate (Albuterol 0.083% Inhal Barbie (2.5 Mg/3 Ml) Ud) 2.5 mg INH RQ4 PRN PRN Reason: Shortness of Breath Albuterol/Ipratropium (Duoneb 3 Mg/0.5 Mg (3 Ml) Ud) 3 ml INH RQ4 PRN PRN Reason: Shortness of Breath Apixaban (Eliquis) 5 mg PO BID [facility] PRN Reason: Protocol Last Admin: 09/29/16 10:28 Dose: Not Given Aspirin (Ecotrin) 81 mg PO DAILY [facility] Last Admin: 09/29/16 10:28 Dose: Not Given Atorvastatin Calcium (Lipitor) 40 mg PO DAILY [facility] Last Admin: 09/29/16 08:53 Dose: 40 mg Benzonatate (Tessalon Perles) 200 mg PO TID PRN PRN Reason: Cough Last Admin: 09/29/16 08:52 Dose: 200 mg Cinacalcet (Sensipar) 30 mg PO DAILY [facility] Last Admin: 09/29/16 08:53 Dose: 30 mg Epoetin Tha (Procrit) 20,000 unit IV MWF [facility] Last Admin: 09/25/16 13:22 Dose: 20,000 unit Ergocalciferol (Drisdol 50,000 Intl Units Cap) 1 cap PO Q7D [facility] Stop: 11/06/16 11:16 Last Admin: 09/25/16 13:24 Dose: 1 cap Fluconazole (Diflucan) 100 mg PO DAILY [facility] Last Admin: 09/29/16 08:53 Dose: 100 mg Hydrocortisone (Anusol-Hc) 1 applic [place] BID [facility] Last Admin: 09/29/16 10:22 Dose: Not Given Hydromorphone HCl (Dilaudid) 2 mg PO Q4 PRN PRN Reason: Pain, moderate (4-7) Last Admin: 09/29/16 05:47 Dose: 2 mg Hydromorphone HCl (Dilaudid) 1 mg IVP Q2H PRN PRN Reason: Pain, severe (8-10) Amikacin Sulfate 250 mg/ (Sodium Chloride) 101 mls @ 100.609 mls/hr IVPB MWF [facility] Last Admin: 09/27/16 11:06 Dose: 100.609 mls/hr Linezolid (Zyvox 600mg/300ml D5w) 600 mg in 300 mls @ 300 mls/hr IVPB Q12@0400, 1600 [facility] Last Admin: 09/29/16 04:30 Dose: 300 mls/hr Meropenem 500 mg/ Sodium (Chloride) 100 mls @ 100 mls/hr IVPB DAILY@0100 [facility] Last Admin: 09/29/16 01:23 Dose: 100 mls/hr Piperacillin Sod/Tazobactam (Sod 2.25 gm/ Sodium Chloride) 100 mls @ 100 mls/ hr IVPB Q12@0200,1400 [facility] Last Admin: 09/29/16 02:30 Dose: 100 mls/hr Insulin Detemir (Levemir) 30 units SC HS [facility] Last Admin: 09/28/16 23:13 Dose: 30 units Insulin Human Lispro (Humalog) 8 units SC AC [facility] Last Admin: 09/29/16 08:54 Dose: 8 units Lidocaine (Lidoderm) 1 ea TD DAILY [facility] Last Admin: 09/29/16 08:54 Dose: Not Given Medroxyprogesterone Acetate (Provera) 10 mg PO DAILY [facility] Last Admin: 09/29/16 08:55 Dose: 10 mg Nystatin (Mycostatin Oint) 1 applic TOP TID [facility] Last Admin: 09/29/16 08:52 Dose: 1 applic Ondansetron HCl (Zofran Inj) 4 mg IVP Q6 PRN PRN Reason: Nausea/Vomiting Last Admin: 09/19/16 10:26 Dose: 4 mg Pantoprazole Sodium (Protonix Ec Tab) 40 mg PO DAILY [facility] Last Admin: 09/29/16 08:53 Dose: 40 mg Sevelamer HCl (Renagel) 1,600 mg PO TID [facility] Last Admin: 09/28/16 17:05 Dose: 1,600 mg Topiramate (Topamax) 50 mg PO BID [facility] Last Admin: 09/29/16 08:52 Dose: 50 mg Vitamin B Complex/Vit C/Folic Acid (Nephro-Ajay) 1 tab PO DAILY [facility] Last Admin: 09/29/16 08:52 Dose: 1 tab - Labs Labs: 09/29/16 05:30 09/29/16 05:30 PT 13.0 SECONDS (9.6-11.2) H 09/29/16 05:30 INR 1.25 (0.92-1.08) H 09/29/16 05:30 APTT 32.5 SECONDS (23.3-32.5) 09/29/16 05:30 - Respiratory Exam Respiratory Exam: NORMAL BREATHING PATTERN - Cardiovascular Exam Cardiovascular Exam: REGULAR RHYTHM (102/min) - Extremities Exam Additional comments: Lt BKA Assessment and Plan - Assessment and Plan (Free Text) Assessment: ESRD on maintenance HD Anemia Hb is lower today which may be dilutional because of extra fluid sec to intradialytic fluid gain. Continue to monitor PVD Chronic Rt foot infection IDDM Plan: Continue HD per schedule Monitor Hb Scheduled for Rt leg amputation next wk.
--- NOTE | 2016-09-29 13:58 | PN ---
DATE: 09/29/2016 ROOM: 663 This is a 46-year-old female with recent uncontrolled type 2 insulin-requiring diabetes, now being fo llowed closely for metabolic management. She is undergoing IV antibiotic management for a recent rig ht heel osteomyelitis and cellulitis and is going to be undergoing vascular surgery with a right belo w-knee amputation possibly very soon. Her glycemic levels are fluctuating but much improved at this time, and the latest chemistries showed a BUN of 27, sodium 140, potassium 3.4, chloride 100, CO2 26, glucose 234 and creatinine 6.1. So at this time, will continue the same basal and bolus insulin regimen as given with Humalog given a s 8 units subQ t.i.d. and Levemir given as 30 units subQ at bedtime daily as given. Will titrate inc rementally as indicated to optimize metabolic control. Will follow. Irene Ambrose MD cc: [phone] TT: 09/29/2016 13:57:53 Confirmation # [id number] Dictation # [id number] russell
--- NOTE | 2016-09-29 17:59 | CP.PCM.PN ---
Subjective - Date & Time of Evaluation Date of Evaluation: 09/29/16 Time of Evaluation: 17:54 - Subjective Subjective: Hgb is 7.8 with Hct 23.5%. Dr. Welsh's note appreciated. There may well be an element of dilution due to fluid retention. However, this result is post transfusions of 2 units of rbc's for a Hgb of 8.2. Since the patient is going to surgery on 10/01 and there is significant bleeding from muscle during BK amputation, so I have ordered that the patient be transfused 2 units of rbc's tomorrow during hemodialysis. She had such severe right lower leg pain last night that it kept her awake. I have advised her to use the po Dilaudid for moderate pain (2mg q4h) and the iv Dilaudid for severe pain (1 mg iv q2h prn). Dry cough again - probably related to fluid retention/pulmonary congestion. This should resolve after hemodialysis tomorrow. Random glucose 234. Dr. Ambrose is managing insulin orders. Dr. Maguire's note appreciated. We will be continuing the Topamax for 2 years as a precaution against further seizure activity.. Objective - Vital Signs/Intake and Output Vital Signs (last 24 hours): Temp Pulse Resp BP Pulse Ox 98.0 F 102 H 20 113/56 L 96 09/29/16 09:00 09/29/16 09:00 09/29/16 09:00 09/29/16 09:00 09/29/16 09:00 - Medications Medications: Current Medications Acetaminophen (Tylenol 325mg Tab) 650 mg PO Q4 PRN PRN Reason: Fever >100.4 F Last Admin: 09/27/16 15:51 Dose: 650 mg Acetaminophen (Tylenol 325mg Tab) 650 mg PO Q4 PRN PRN Reason: Pain, moderate (4-7) Last Admin: 09/16/16 22:34 Dose: 650 mg Albuterol Sulfate (Albuterol 0.083% Inhal Barbie (2.5 Mg/3 Ml) Ud) 2.5 mg INH RQ4 PRN PRN Reason: Shortness of Breath Albuterol/Ipratropium (Duoneb 3 Mg/0.5 Mg (3 Ml) Ud) 3 ml INH RQ4 PRN PRN Reason: Shortness of Breath Apixaban (Eliquis) 5 mg PO BID [facility] PRN Reason: Protocol Last Admin: 09/29/16 16:17 Dose: Not Given Aspirin (Ecotrin) 81 mg PO DAILY [facility] Last Admin: 09/29/16 10:28 Dose: Not Given Atorvastatin Calcium (Lipitor) 40 mg PO DAILY [facility] Last Admin: 09/29/16 08:53 Dose: 40 mg Benzonatate (Tessalon Perles) 200 mg PO TID PRN PRN Reason: Cough Last Admin: 09/29/16 08:52 Dose: 200 mg Cinacalcet (Sensipar) 30 mg PO DAILY [facility] Last Admin: 09/29/16 08:53 Dose: 30 mg Epoetin Tha (Procrit) 20,000 unit IV [facility] [place] Last Admin: 09/25/16 13:22 Dose: 20,000 unit Ergocalciferol (Drisdol 50,000 Intl Units Cap) 1 cap PO Q7D [facility] Stop: 11/06/16 11:16 Last Admin: 09/25/16 13:24 Dose: 1 cap Fluconazole (Diflucan) 100 mg PO DAILY [facility] Last Admin: 09/29/16 08:53 Dose: 100 mg Hydrocortisone (Anusol-Hc) 1 applic [place] BID [facility] Last Admin: 09/29/16 16:58 Dose: Not Given Hydromorphone HCl (Dilaudid) 2 mg PO Q4 PRN PRN Reason: Pain, moderate (4-7) Last Admin: 09/29/16 05:47 Dose: 2 mg Hydromorphone HCl (Dilaudid) 1 mg IVP Q2H PRN PRN Reason: Pain, severe (8-10) Amikacin Sulfate 250 mg/ (Sodium Chloride) 101 mls @ 100.609 mls/hr IVPB MWF [facility] Last Admin: 09/27/16 11:06 Dose: 100.609 mls/hr Linezolid (Zyvox 600mg/300ml D5w) 600 mg in 300 mls @ 300 mls/hr IVPB Q12@0400, 1600 [facility] Last Admin: 09/29/16 16:18 Dose: 300 mls/hr Meropenem 500 mg/ Sodium (Chloride) 100 mls @ 100 mls/hr IVPB DAILY@0100 [facility] Last Admin: 09/29/16 01:23 Dose: 100 mls/hr Piperacillin Sod/Tazobactam (Sod 2.25 gm/ Sodium Chloride) 100 mls @ 100 mls/ hr IVPB Q12@0200,1400 [facility] Last Admin: 09/29/16 13:55 Dose: 100 mls/hr Insulin Detemir (Levemir) 30 units SC HS [facility] Last Admin: 09/28/16 23:13 Dose: 30 units Insulin Human Lispro (Humalog) 8 units SC AC [facility] Last Admin: 09/29/16 16:57 Dose: 8 units Lidocaine (Lidoderm) 1 ea TD DAILY [facility] Last Admin: 09/29/16 14:04 Dose: 1 ea Medroxyprogesterone Acetate (Provera) 10 mg PO DAILY [facility] Last Admin: 09/29/16 08:55 Dose: 10 mg Nystatin (Mycostatin Oint) 1 applic TOP TID [facility] Last Admin: 09/29/16 16:57 Dose: 1 applic Ondansetron HCl (Zofran Inj) 4 mg IVP Q6 PRN PRN Reason: Nausea/Vomiting Last Admin: 09/19/16 10:26 Dose: 4 mg Pantoprazole Sodium (Protonix Ec Tab) 40 mg PO DAILY [facility] Last Admin: 09/29/16 08:53 Dose: 40 mg Sevelamer HCl (Renagel) 1,600 mg PO TID [facility] Last Admin: 09/29/16 16:57 Dose: 1,600 mg Topiramate (Topamax) 50 mg PO BID [facility] Last Admin: 09/29/16 16:58 Dose: 50 mg Vitamin B Complex/Vit C/Folic Acid (Nephro-Ajay) 1 tab PO DAILY [facility] Last Admin: 09/29/16 08:52 Dose: 1 tab - Labs Labs: 09/29/16 05:30 09/29/16 05:30 PT 13.0 SECONDS (9.6-11.2) H 09/29/16 05:30 INR 1.25 (0.92-1.08) H 09/29/16 05:30 APTT 32.5 SECONDS (23.3-32.5) 09/29/16 05:30 - Constitutional Appears: No Acute Distress - Head Exam Head Exam: NORMAL INSPECTION - Eye Exam Eye Exam: Normal appearance - ENT Exam ENT Exam: Mucous Membranes Moist - Neck Exam Neck Exam: Normal Inspection Additional comments: Permacath right subclavian - intact. - Respiratory Exam Respiratory Exam: Clear to Ausculation Bilateral, NORMAL BREATHING PATTERN - Cardiovascular Exam Cardiovascular Exam: REGULAR RHYTHM, +S1, +S2 - GI/Abdominal Exam GI & Abdominal Exam: Soft - Extremities Exam Additional comments: Right lower leg is very warm, swollen and tender. R ankle dresing intact. Toes shriveled and cool and cannot be moved. No palpable pulse. Left residual limb is warm, non-tender, and without any lesions. Left femor PICC line intact. Left hand residual is puffy, but warm and non-tender. Right hand minus 3rd finger - otherwise normal. - Back Exam Back Exam: NORMAL INSPECTION - Neurological Exam Neurological Exam: Alert, Awake, CN II-XII Intact, Oriented x3 Additional comments: Non-ambulatory. - Psychiatric Exam Psychiatric exam: Anxious - Skin Additional comments: Excoriations beneath breats just about healed. Allevyn dressing intact buttock area. Assessment and Plan (1) Osteomyelitis of ankle or foot Assessment & Plan: Plan is for right BK amputation 10/01 by vascular surgeons, Drs. Mccormack and Andreea. SEE SUBJECTIVE Status: Acute (2) ESRD (end stage renal disease) on dialysis Assessment & Plan: On hemodialysis MWF - see Dr. Welsh's note Status: Chronic (3) DM type 2 (diabetes mellitus, type 2) Assessment & Plan: SEE SUBJECTIVE Status: Chronic (4) Coagulopathy Assessment & Plan: Eliquis and ASA are on hold for pending surgery. Status: Chronic (5) Peripheral arterial occlusive disease Status: Chronic (6) Anemia, blood loss Assessment & Plan: Heavy menses with clotting has added to the anemia usually associated with ESRD and due to antibiotic therapy. Provera 10 mg daily will be continued to suppress menses. Patient is to receive 2 units of rbc's tomorrow. Status: Acute
[2016-09-29] MEDS: Insulin Detemir 100 Units/ml Inj SC SCH (21:23)
--- NOTE | 2016-09-29 23:22 | CP.PCM.PN ---
Subjective - Date & Time of Evaluation Date of Evaluation: 09/29/16 Time of Evaluation: 20:00 - Subjective Subjective: Anemia Hb is lower today which may be dilutional because of extra fluid sec to intradialytic fluid gain. Continue to monitor PVD Chronic Rt foot infection IDDM Patient has dilutional anemia and will get a blood transfusion of 2 Packs of PRBCs prior to her surgery to avoid further complication. No Seizures, on Po Tomamax 250 mg BID, she must have her Topamax before and after the surgery Objective - Vital Signs/Intake and Output Vital Signs (last 24 hours): Temp Pulse Resp BP Pulse Ox 98.8 F 108 H 20 96/48 L 97 09/29/16 17:00 09/29/16 17:00 09/29/16 17:00 09/29/16 17:00 09/29/16 17:00 - Medications Medications: Current Medications Acetaminophen (Tylenol 325mg Tab) 650 mg PO Q4 PRN PRN Reason: Fever >100.4 F Last Admin: 09/27/16 15:51 Dose: 650 mg Acetaminophen (Tylenol 325mg Tab) 650 mg PO Q4 PRN PRN Reason: Pain, moderate (4-7) Last Admin: 09/16/16 22:34 Dose: 650 mg Albuterol Sulfate (Albuterol 0.083% Inhal Barbie (2.5 Mg/3 Ml) Ud) 2.5 mg INH RQ4 PRN PRN Reason: Shortness of Breath Albuterol/Ipratropium (Duoneb 3 Mg/0.5 Mg (3 Ml) Ud) 3 ml INH RQ4 PRN PRN Reason: Shortness of Breath Apixaban (Eliquis) 5 mg PO BID [facility] PRN Reason: Protocol Last Admin: 09/29/16 16:17 Dose: Not Given Aspirin (Ecotrin) 81 mg PO DAILY [facility] Last Admin: 09/29/16 10:28 Dose: Not Given Atorvastatin Calcium (Lipitor) 40 mg PO DAILY [facility] Last Admin: 09/29/16 08:53 Dose: 40 mg Benzonatate (Tessalon Perles) 200 mg PO TID PRN PRN Reason: Cough Last Admin: 09/29/16 08:52 Dose: 200 mg Cinacalcet (Sensipar) 30 mg PO DAILY [facility] Last Admin: 09/29/16 08:53 Dose: 30 mg Epoetin Tha (Procrit) 20,000 unit IV MWF [facility] Last Admin: 09/25/16 13:22 Dose: 20,000 unit Ergocalciferol (Drisdol 50,000 Intl Units Cap) 1 cap PO Q7D [facility] Stop: 11/06/16 11:16 Last Admin: 09/25/16 13:24 Dose: 1 cap Fluconazole (Diflucan) 100 mg PO DAILY [facility] Last Admin: 09/29/16 08:53 Dose: 100 mg Hydrocortisone (Anusol-Hc) 1 applic [place] BID [facility] Last Admin: 09/29/16 16:58 Dose: Not Given Hydromorphone HCl (Dilaudid) 2 mg PO Q4 PRN PRN Reason: Pain, moderate (4-7) Last Admin: 09/29/16 05:47 Dose: 2 mg Hydromorphone HCl (Dilaudid) 1 mg IVP Q2H PRN PRN Reason: Pain, severe (8-10) Last Admin: 09/29/16 21:15 Dose: 1 mg Amikacin Sulfate 250 mg/ (Sodium Chloride) 101 mls @ 100.609 mls/hr IVPB [facility] Last Admin: 09/27/16 11:06 Dose: 100.609 mls/hr Linezolid (Zyvox 600mg/300ml D5w) 600 mg in 300 mls @ 300 mls/hr IVPB Q12@0400, 1600 [facility] Last Admin: 09/29/16 16:18 Dose: 300 mls/hr Meropenem 500 mg/ Sodium (Chloride) 100 mls @ 100 mls/hr IVPB DAILY@0100 [facility] Last Admin: 09/29/16 01:23 Dose: 100 mls/hr Piperacillin Sod/Tazobactam (Sod 2.25 gm/ Sodium Chloride) 100 mls @ 100 mls/ hr IVPB Q12@0200,1400 [facility] Last Admin: 09/29/16 13:55 Dose: 100 mls/hr Insulin Detemir (Levemir) 30 units SC HS [facility] Last Admin: 09/29/16 21:23 Dose: 30 units Insulin Human Lispro (Humalog) 8 units SC AC [facility] Last Admin: 09/29/16 16:57 Dose: 8 units Lidocaine (Lidoderm) 1 ea TD DAILY [facility] Last Admin: 09/29/16 14:04 Dose: 1 ea Medroxyprogesterone Acetate (Provera) 10 mg PO DAILY [facility] Last Admin: 09/29/16 08:55 Dose: 10 mg Nystatin (Mycostatin Oint) 1 applic TOP TID [facility] Last Admin: 09/29/16 16:57 Dose: 1 applic Ondansetron HCl (Zofran Inj) 4 mg IVP Q6 PRN PRN Reason: Nausea/Vomiting Last Admin: 09/19/16 10:26 Dose: 4 mg Pantoprazole Sodium (Protonix Ec Tab) 40 mg PO DAILY [facility] Last Admin: 09/29/16 08:53 Dose: 40 mg Sevelamer HCl (Renagel) 1,600 mg PO TID [facility] Last Admin: 09/29/16 16:57 Dose: 1,600 mg Topiramate (Topamax) 50 mg PO BID [facility] Last Admin: 09/29/16 16:58 Dose: 50 mg Vitamin B Complex/Vit C/Folic Acid (Nephro-Ajay) 1 tab PO DAILY [facility] Last Admin: 09/29/16 08:52 Dose: 1 tab - Labs Labs: 09/29/16 05:30 09/29/16 05:30 PT 13.0 SECONDS (9.6-11.2) H 09/29/16 05:30 INR 1.25 (0.92-1.08) H 09/29/16 05:30 APTT 32.5 SECONDS (23.3-32.5) 09/29/16 05:30 Assessment and Plan (1) Diabetes Status: Chronic (2) ESRD (end stage renal disease) Status: Chronic (3) Cellulitis of leg Status: Acute (4) Hyperlipidemia Status: Chronic (5) Back pain Status: Acute (6) Bacteremia due to Gram-negative bacteria Status: Acute (7) Diabetes mellitus type 2 with peripheral artery disease Status: Acute (8) PVD (peripheral vascular disease) Status: Acute
[2016-09-30] MEDS: Meropenem 500 MG in Sodium Chloride 0.9% 100 ML IVPB SCH (00:55)
[2016-09-30] MEDS: Linezolid 600 mg in D5W 300 ml 600 MG/300 ML BAG IVPB SCH ×2 (03:21→16:20)
--- NOTE | 2016-09-30 06:38 | CP.PCM.PN ---
Subjective - Date & Time of Evaluation Date of Evaluation: 09/30/16 Time of Evaluation: 06:37 - Subjective Subjective: 46 year old female was seen resting at bedside regarding right heel eschar. Patient states that she does have pain to the right foot and ankle. Tomorrow she is going to surgery for a BKA. Denies n/v/f/c/sob/cp. Objective - Vital Signs/Intake and Output Vital Signs (last 24 hours): Temp Pulse Resp BP Pulse Ox 98.2 F 103 H 20 104/58 L 99 09/30/16 02:09 09/30/16 02:09 09/30/16 02:09 09/30/16 02:09 09/30/16 02:09 - Medications Medications: Current Medications Acetaminophen (Tylenol 325mg Tab) 650 mg PO Q4 PRN PRN Reason: Fever >100.4 F Last Admin: 09/27/16 15:51 Dose: 650 mg Acetaminophen (Tylenol 325mg Tab) 650 mg PO Q4 PRN PRN Reason: Pain, moderate (4-7) Last Admin: 09/16/16 22:34 Dose: 650 mg Albuterol Sulfate (Albuterol 0.083% Inhal Barbie (2.5 Mg/3 Ml) Ud) 2.5 mg INH RQ4 PRN PRN Reason: Shortness of Breath Albuterol/Ipratropium (Duoneb 3 Mg/0.5 Mg (3 Ml) Ud) 3 ml INH RQ4 PRN PRN Reason: Shortness of Breath Apixaban (Eliquis) 5 mg PO BID [facility] PRN Reason: Protocol Last Admin: 09/29/16 16:17 Dose: Not Given Aspirin (Ecotrin) 81 mg PO DAILY [facility] Last Admin: 09/29/16 10:28 Dose: Not Given Atorvastatin Calcium (Lipitor) 40 mg PO DAILY [facility] Last Admin: 09/29/16 08:53 Dose: 40 mg Benzonatate (Tessalon Perles) 200 mg PO TID PRN PRN Reason: Cough Last Admin: 09/29/16 08:52 Dose: 200 mg Cinacalcet (Sensipar) 30 mg PO DAILY [facility] Last Admin: 09/29/16 08:53 Dose: 30 mg Epoetin Tha (Procrit) 20,000 unit IV MWF [facility] Last Admin: 09/25/16 13:22 Dose: 20,000 unit Ergocalciferol (Drisdol 50,000 Intl Units Cap) 1 cap PO Q7D [facility] Stop: 11/06/16 11:16 Last Admin: 09/25/16 13:24 Dose: 1 cap Fluconazole (Diflucan) 100 mg PO DAILY [facility] Last Admin: 09/29/16 08:53 Dose: 100 mg Hydrocortisone (Anusol-Hc) 1 applic [place] BID [facility] Last Admin: 09/29/16 16:58 Dose: Not Given Hydromorphone HCl (Dilaudid) 2 mg PO Q4 PRN PRN Reason: Pain, moderate (4-7) Last Admin: 09/29/16 05:47 Dose: 2 mg Hydromorphone HCl (Dilaudid) 1 mg IVP Q2H PRN PRN Reason: Pain, severe (8-10) Last Admin: 09/29/16 21:15 Dose: 1 mg Amikacin Sulfate 250 mg/ (Sodium Chloride) 101 mls @ 100.609 mls/hr IVPB MWF [facility] Last Admin: 09/27/16 11:06 Dose: 100.609 mls/hr Linezolid (Zyvox 600mg/300ml D5w) 600 mg in 300 mls @ 300 mls/hr IVPB Q12@0400, 1600 [facility] Last Admin: 09/30/16 03:21 Dose: 300 mls/hr Meropenem 500 mg/ Sodium (Chloride) 100 mls @ 100 mls/hr IVPB DAILY@0100 [facility] Last Admin: 09/30/16 00:55 Dose: 100 mls/hr Piperacillin Sod/Tazobactam (Sod 2.25 gm/ Sodium Chloride) 100 mls @ 100 mls/ hr IVPB Q12@0200,1400 [facility] Last Admin: 09/30/16 01:01 Dose: 100 mls/hr Insulin Detemir (Levemir) 30 units SC HS [facility] Last Admin: 09/29/16 21:23 Dose: 30 units Insulin Human Lispro (Humalog) 8 units SC AC [facility] Last Admin: 09/29/16 16:57 Dose: 8 units Lidocaine (Lidoderm) 1 ea TD DAILY [facility] Last Admin: 09/29/16 14:04 Dose: 1 ea Medroxyprogesterone Acetate (Provera) 10 mg PO DAILY [facility] Last Admin: 09/29/16 08:55 Dose: 10 mg Nystatin (Mycostatin Oint) 1 applic TOP TID [facility] Last Admin: 09/29/16 16:57 Dose: 1 applic Ondansetron HCl (Zofran Inj) 4 mg IVP Q6 PRN PRN Reason: Nausea/Vomiting Last Admin: 09/19/16 10:26 Dose: 4 mg Pantoprazole Sodium (Protonix Ec Tab) 40 mg PO DAILY [facility] Last Admin: 09/29/16 08:53 Dose: 40 mg Sevelamer HCl (Renagel) 1,600 mg PO TID [facility] Last Admin: 09/29/16 16:57 Dose: 1,600 mg Topiramate (Topamax) 50 mg PO BID [facility] Last Admin: 09/29/16 16:58 Dose: 50 mg Vitamin B Complex/Vit C/Folic Acid (Nephro-Ajay) 1 tab PO DAILY [facility] Last Admin: 09/29/16 08:52 Dose: 1 tab - Labs Labs: 09/29/16 05:30 09/29/16 05:30 PT 13.0 SECONDS (9.6-11.2) H 09/29/16 05:30 INR 1.25 (0.92-1.08) H 09/29/16 05:30 APTT 32.5 SECONDS (23.3-32.5) 09/29/16 05:30 - Constitutional Appears: Non-toxic, No Acute Distress, Chronically Ill - Extremities Exam Additional comments: dressing clean, dry, intact to RLE - Neurological Exam Neurological Exam: Alert, Awake, Oriented x3 - Psychiatric Exam Psychiatric exam: Normal Affect, Normal Mood Assessment and Plan - Assessment and Plan (Free Text) Assessment: 46 yo female patient with pmhx of HTN, ESRD (on dialysis), coagulopathy, DM, Charcot Arthropathy of Right foot PVD w/ dry eschar of right heel, symptomatic myositis & tendonitis. Plan: Patient examined and evaluated Discussed in detail with attending. Medical provider, consulting service physician notes, & Physical therapy evaluation reviewed. Dr. Resendez made aware of all pertinent changes and findings. Chart, labs, vitals reviewed; afebrile Right heel dressing left c/d/i Multipodus boot to be worn at all times while in bed Continue IV abx per ID Patient for R BKA tomorrow
--- NOTE | 2016-09-30 07:35 | PN ---
DATE: 09/28/2016 Room 663. This is a 46-year-old female with recent uncontrolled type 2 insulin-requiring diabetes now being fol lowed closely for metabolic management. Her glycemic levels are fluctuating, but much improved at th is time and the latest glucose levels have ranged from 121-162 and 285 mg/dL. So at this time, we wi ll continue the same basal and bolus insulin regimen to allow for dose equilibration and keep her on the Humalog given as 8 units subQ t.i.d. before meals as ordered. We will continue also the Levemir given as 30 units subQ at bedtime daily, as given. We will titrate incrementally as indicated to opt imize metabolic control. She has ongoing IV antibiotics for management of right heel osteomyelitis a nd cellulitis with severe underlying arterial vasculopathy as noted. ___. There is an eventual plan for right below-knee amputation as ____ was given for the eventual vascular management of this patie nt. Irene Ambrose MD cc: [id number] TT: 09/28/2016 12:21:50 Confirmation # [id number] Dictation # [id number]
[2016-09-30] MEDS: Nystatin Ointment TOP SCH ×3 (09:23→16:53)
[2016-09-30] MEDS: Multivitamin Vitamin B Complex (Nephro-Vite) Tab PO SCH (09:23)
[2016-09-30] MEDS: Pantoprazole 40 mg EC Tab PO SCH (09:24)
[2016-09-30] MEDS: Hydrocortisone 2.5% (Rectal) CREAM PR SCH ×2 (09:28→16:26)
[2016-09-30] MEDS: Lidocaine 5% Patch TD SCH (09:33)
[2016-09-30] MEDS: Insulin Lispro (humaLOG) 100 Units/ml Inj SC SCH ×3 (09:36→16:27)
--- NOTE | 2016-09-30 10:28 | CP.PCM.PN ---
Subjective - Date & Time of Evaluation Date of Evaluation: 09/30/16 Time of Evaluation: 10:25 - Subjective Subjective: Pt is scheduled for surgery tomorrow, but her hgb had dropped to 7.8gms , so I will give her 2 units of blood today. Objective - Vital Signs/Intake and Output Vital Signs (last 24 hours): Temp Pulse Resp BP Pulse Ox 97.7 F 106 H 17 108/51 L 94 L 09/30/16 07:57 09/30/16 07:57 09/30/16 07:57 09/30/16 07:57 09/30/16 07:57 - Medications Medications: Current Medications Acetaminophen (Tylenol 325mg Tab) 650 mg PO Q4 PRN PRN Reason: Fever >100.4 F Last Admin: 09/27/16 15:51 Dose: 650 mg Acetaminophen (Tylenol 325mg Tab) 650 mg PO Q4 PRN PRN Reason: Pain, moderate (4-7) Last Admin: 09/16/16 22:34 Dose: 650 mg Albuterol Sulfate (Albuterol 0.083% Inhal Barbie (2.5 Mg/3 Ml) Ud) 2.5 mg INH RQ4 PRN PRN Reason: Shortness of Breath Albuterol/Ipratropium (Duoneb 3 Mg/0.5 Mg (3 Ml) Ud) 3 ml INH RQ4 PRN PRN Reason: Shortness of Breath Apixaban (Eliquis) 5 mg PO BID [facility] PRN Reason: Protocol Last Admin: 09/30/16 09:29 Dose: Not Given Aspirin (Ecotrin) 81 mg PO DAILY [facility] Last Admin: 09/30/16 09:29 Dose: Not Given Atorvastatin Calcium (Lipitor) 40 mg PO DAILY [facility] Last Admin: 09/30/16 09:27 Dose: 40 mg Benzonatate (Tessalon Perles) 200 mg PO TID PRN PRN Reason: Cough Last Admin: 09/29/16 08:52 Dose: 200 mg Cinacalcet (Sensipar) 30 mg PO DAILY [facility] Last Admin: 09/30/16 09:25 Dose: 30 mg Epoetin Tha (Procrit) 20,000 unit IV MWF [facility] Last Admin: 09/25/16 13:22 Dose: 20,000 unit Ergocalciferol (Drisdol 50,000 Intl Units Cap) 1 cap PO Q7D [facility] Stop: 11/06/16 11:16 Last Admin: 09/25/16 13:24 Dose: 1 cap Fluconazole (Diflucan) 100 mg PO DAILY [facility] Last Admin: 09/30/16 09:23 Dose: 100 mg Hydrocortisone (Anusol-Hc) 1 applic [place] BID [facility] Last Admin: 09/30/16 09:28 Dose: 1 applic Hydromorphone HCl (Dilaudid) 2 mg PO Q4 PRN PRN Reason: Pain, moderate (4-7) Last Admin: 09/29/16 05:47 Dose: 2 mg Hydromorphone HCl (Dilaudid) 1 mg IVP Q2H PRN PRN Reason: Pain, severe (8-10) Last Admin: 09/30/16 06:57 Dose: 1 mg Amikacin Sulfate 250 mg/ (Sodium Chloride) 101 mls @ 100.609 mls/hr IVPB MWF [facility] Last Admin: 09/30/16 09:22 Dose: 100.609 mls/hr Linezolid (Zyvox 600mg/300ml D5w) 600 mg in 300 mls @ 300 mls/hr IVPB Q12@0400, 1600 [facility] Last Admin: 09/30/16 03:21 Dose: 300 mls/hr Meropenem 500 mg/ Sodium (Chloride) 100 mls @ 100 mls/hr IVPB DAILY@0100 [facility] Last Admin: 09/30/16 00:55 Dose: 100 mls/hr Piperacillin Sod/Tazobactam (Sod 2.25 gm/ Sodium Chloride) 100 mls @ 100 mls/ hr IVPB Q12@0200,1400 [facility] Last Admin: 09/30/16 01:01 Dose: 100 mls/hr Insulin Detemir (Levemir) 30 units SC HS [facility] Last Admin: 09/29/16 21:23 Dose: 30 units Insulin Human Lispro (Humalog) 8 units SC AC [facility] Last Admin: 09/30/16 09:36 Dose: 8 units Lidocaine (Lidoderm) 1 ea TD DAILY [facility] Last Admin: 09/30/16 09:33 Dose: 1 ea Medroxyprogesterone Acetate (Provera) 10 mg PO DAILY [facility] Last Admin: 09/30/16 09:24 Dose: 10 mg Nystatin (Mycostatin Oint) 1 applic TOP TID [facility] Last Admin: 09/30/16 09:23 Dose: 1 applic Ondansetron HCl (Zofran Inj) 4 mg IVP Q6 PRN PRN Reason: Nausea/Vomiting Last Admin: 09/19/16 10:26 Dose: 4 mg Pantoprazole Sodium (Protonix Ec Tab) 40 mg PO DAILY [facility] Last Admin: 09/30/16 09:24 Dose: 40 mg Sevelamer HCl (Renagel) 1,600 mg PO TID [facility] Last Admin: 09/30/16 09:24 Dose: 1,600 mg Topiramate (Topamax) 50 mg PO BID [facility] Last Admin: 09/30/16 09:27 Dose: Not Given Vitamin B Complex/Vit C/Folic Acid (Nephro-Ajay) 1 tab PO DAILY [facility] Last Admin: 09/30/16 09:23 Dose: 1 tab - Labs Labs: 09/29/16 05:30 09/29/16 05:30 PT 13.0 SECONDS (9.6-11.2) H 09/29/16 05:30 INR 1.25 (0.92-1.08) H 09/29/16 05:30 APTT 32.5 SECONDS (23.3-32.5) 09/29/16 05:30
--- NOTE | 2016-09-30 12:37 | CP.PCM.PN ---
Subjective - Date & Time of Evaluation Date of Evaluation: 09/30/16 Time of Evaluation: 12:20 - Subjective Subjective: Seen on dialysis Appears comfortable Objective - Vital Signs/Intake and Output Vital Signs (last 24 hours): Temp Pulse Resp BP Pulse Ox 97.7 F 106 H 17 108/51 L 94 L 09/30/16 07:57 09/30/16 07:57 09/30/16 07:57 09/30/16 07:57 09/30/16 07:57 - Medications Medications: Current Medications Acetaminophen (Tylenol 325mg Tab) 650 mg PO Q4 PRN PRN Reason: Fever >100.4 F Last Admin: 09/27/16 15:51 Dose: 650 mg Acetaminophen (Tylenol 325mg Tab) 650 mg PO Q4 PRN PRN Reason: Pain, moderate (4-7) Last Admin: 09/16/16 22:34 Dose: 650 mg Albuterol Sulfate (Albuterol 0.083% Inhal Barbei (2.5 Mg/3 Ml) Ud) 2.5 mg INH RQ4 PRN PRN Reason: Shortness of Breath Albuterol/Ipratropium (Duoneb 3 Mg/0.5 Mg (3 Ml) Ud) 3 ml INH RQ4 PRN PRN Reason: Shortness of Breath Apixaban (Eliquis) 5 mg PO BID [facility] PRN Reason: Protocol Last Admin: 09/30/16 09:29 Dose: Not Given Aspirin (Ecotrin) 81 mg PO DAILY [facility] Last Admin: 09/30/16 09:29 Dose: Not Given Atorvastatin Calcium (Lipitor) 40 mg PO DAILY [facility] Last Admin: 09/30/16 09:27 Dose: 40 mg Benzonatate (Tessalon Perles) 200 mg PO TID PRN PRN Reason: Cough Last Admin: 09/29/16 08:52 Dose: 200 mg Cinacalcet (Sensipar) 30 mg PO DAILY [facility] Last Admin: 09/30/16 09:25 Dose: 30 mg Epoetin Tha (Procrit) 20,000 unit IV MWF [facility] Last Admin: 09/25/16 13:22 Dose: 20,000 unit Ergocalciferol (Drisdol 50,000 Intl Units Cap) 1 cap PO Q7D [facility] Stop: 11/06/16 11:16 Last Admin: 09/25/16 13:24 Dose: 1 cap Fluconazole (Diflucan) 100 mg PO DAILY [facility] Last Admin: 09/30/16 09:23 Dose: 100 mg Hydrocortisone (Anusol-Hc) 1 applic [place] BID [facility] Last Admin: 09/30/16 09:28 Dose: 1 applic Hydromorphone HCl (Dilaudid) 2 mg PO Q4 PRN PRN Reason: Pain, moderate (4-7) Last Admin: 09/30/16 12:34 Dose: 2 mg Hydromorphone HCl (Dilaudid) 1 mg IVP Q2H PRN PRN Reason: Pain, severe (8-10) Last Admin: 09/30/16 06:57 Dose: 1 mg Amikacin Sulfate 250 mg/ (Sodium Chloride) 101 mls @ 100.609 mls/hr IVPB MWF [facility] Last Admin: 09/30/16 09:22 Dose: 100.609 mls/hr Linezolid (Zyvox 600mg/300ml D5w) 600 mg in 300 mls @ 300 mls/hr IVPB Q12@0400, 1600 [facility] Last Admin: 09/30/16 03:21 Dose: 300 mls/hr Meropenem 500 mg/ Sodium (Chloride) 100 mls @ 100 mls/hr IVPB DAILY@0100 [facility] Last Admin: 09/30/16 00:55 Dose: 100 mls/hr Piperacillin Sod/Tazobactam (Sod 2.25 gm/ Sodium Chloride) 100 mls @ 100 mls/ hr IVPB Q12@0200,1400 [facility] Last Admin: 09/30/16 01:01 Dose: 100 mls/hr Insulin Detemir (Levemir) 30 units SC HS [facility] Last Admin: 09/29/16 21:23 Dose: 30 units Insulin Human Lispro (Humalog) 8 units SC AC [facility] Last Admin: 09/30/16 12:29 Dose: Not Given Lidocaine (Lidoderm) 1 ea TD DAILY [facility] Last Admin: 09/30/16 09:33 Dose: 1 ea Medroxyprogesterone Acetate (Provera) 10 mg PO DAILY [facility] Last Admin: 09/30/16 09:24 Dose: 10 mg Nystatin (Mycostatin Oint) 1 applic TOP TID [facility] Last Admin: 09/30/16 09:23 Dose: 1 applic Ondansetron HCl (Zofran Inj) 4 mg IVP Q6 PRN PRN Reason: Nausea/Vomiting Last Admin: 09/19/16 10:26 Dose: 4 mg Pantoprazole Sodium (Protonix Ec Tab) 40 mg PO DAILY [facility] Last Admin: 09/30/16 09:24 Dose: 40 mg Sevelamer HCl (Renagel) 1,600 mg PO TID [facility] Last Admin: 09/30/16 09:24 Dose: 1,600 mg Topiramate (Topamax) 50 mg PO BID [facility] Last Admin: 09/30/16 09:27 Dose: Not Given Vitamin B Complex/Vit C/Folic Acid (Nephro-Ajay) 1 tab PO DAILY [facility] Last Admin: 09/30/16 09:23 Dose: 1 tab - Labs Labs: 09/29/16 05:30 09/29/16 05:30 PT 13.0 SECONDS (9.6-11.2) H 09/29/16 05:30 INR 1.25 (0.92-1.08) H 09/29/16 05:30 APTT 32.5 SECONDS (23.3-32.5) 09/29/16 05:30 - Respiratory Exam Additional comments: Lungs clear - Cardiovascular Exam Cardiovascular Exam: Tachycardia, REGULAR RHYTHM Additional comments: 104/min Assessment and Plan - Assessment and Plan (Free Text) Assessment: ESRD Anemia Receiving 2 UPRBCs with dialysis today IDDM PVD For Rt leg amputation tomorrow Plan: Continue HD per schedule Monitor Hb
--- NOTE | 2016-09-30 14:53 | CARD ---
APPROVED REPORT EKG Measurement Heart [id number] <Conclusion> Sinus tachycardia Poor R wave progression V1 to V4 Possible inferior injury pattern Abnormal ECG
--- NOTE | 2016-09-30 15:05 | CP.PCM.PN ---
Subjective - Date & Time of Evaluation Date of Evaluation: 09/30/16 Time of Evaluation: 14:53 - Subjective Subjective: Patient is to undergo right below the knee amputation by Drs. Mccormack and Andreae at 2 pm tomorrow. This is necessary because of an infection in the foot which caused septic shock on admission (08/27/16) and threatens recurrence of overwhelming life-threatening sepsis again. Because of severe peripheral vascular disease due to diabetic/hypertensive/lipidemic vasculopathy and calcifications due to renal disease, the right ankle/foot are no longer viable. The patient understands the need for surgery and is agreeable. Because of severe anemia (again multifactorial) the patient was just transfused 2 units of rbc's today, and there will be 2 units on hold for the OR tomorrow. Dr. Ambrose will manage the diabetes. Since the patient will be npo after midnight , Dr. Ambrose will order iv glucose and baseline insulin. Patient is stable from a cardiorespiratory perspective - as per Drs. Gallito Shepard and Richard Flores. Dr. 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 Eliquis and aspirin have been on hold. Once stabilized post-operatively, but no sooner than 24hours after surgery, Eliquis and aspirin will be resumed. Hemodialysis is being done today. Patient is tolerating this well and blood pressures are being maintained. Menstrual flow is beginning to subside since Provera was begun several days ago. While there have been no seizures since the time of admission when the patient went into septic shock, Dr. Maguire wants her to be maintained on Topamax. Patient should receive all her current morning po meds tomorrow with a small sip of water Objective - Vital Signs/Intake and Output Vital Signs (last 24 hours): Temp Pulse Resp BP Pulse Ox 97.7 F 106 H 17 108/51 L 94 L 09/30/16 07:57 09/30/16 07:57 09/30/16 07:57 09/30/16 07:57 09/30/16 07:57 - Medications Medications: Current Medications Acetaminophen (Tylenol 325mg Tab) 650 mg PO Q4 PRN PRN Reason: Fever >100.4 F Last Admin: 09/27/16 15:51 Dose: 650 mg Acetaminophen (Tylenol 325mg Tab) 650 mg PO Q4 PRN PRN Reason: Pain, moderate (4-7) Last Admin: 09/16/16 22:34 Dose: 650 mg Albuterol Sulfate (Albuterol 0.083% Inhal Barbie (2.5 Mg/3 Ml) Ud) 2.5 mg INH RQ4 PRN PRN Reason: Shortness of Breath Albuterol/Ipratropium (Duoneb 3 Mg/0.5 Mg (3 Ml) Ud) 3 ml INH RQ4 PRN PRN Reason: Shortness of Breath Apixaban (Eliquis) 5 mg PO BID [facility] PRN Reason: Protocol Last Admin: 09/30/16 09:29 Dose: Not Given Aspirin (Ecotrin) 81 mg PO DAILY [facility] Last Admin: 09/30/16 09:29 Dose: Not Given Atorvastatin Calcium (Lipitor) 40 mg PO DAILY [facility] Last Admin: 09/30/16 09:27 Dose: 40 mg Benzonatate (Tessalon Perles) 200 mg PO TID PRN PRN Reason: Cough Last Admin: 09/29/16 08:52 Dose: 200 mg Cinacalcet (Sensipar) 30 mg PO DAILY [facility] Last Admin: 09/30/16 09:25 Dose: 30 mg Epoetin Tha (Procrit) 20,000 unit IV MWF [facility] Last Admin: 09/25/16 13:22 Dose: 20,000 unit Ergocalciferol (Drisdol 50,000 Intl Units Cap) 1 cap PO Q7D [facility] Stop: 11/06/16 11:16 Last Admin: 09/25/16 13:24 Dose: 1 cap Fluconazole (Diflucan) 100 mg PO DAILY [facility] Last Admin: 09/30/16 09:23 Dose: 100 mg Hydrocortisone (Anusol-Hc) 1 applic [place] BID [facility] Last Admin: 09/30/16 09:28 Dose: 1 applic Hydromorphone HCl (Dilaudid) 2 mg PO Q4 PRN PRN Reason: Pain, moderate (4-7) Last Admin: 09/30/16 12:34 Dose: 2 mg Hydromorphone HCl (Dilaudid) 1 mg IVP Q2H PRN PRN Reason: Pain, severe (8-10) Last Admin: 09/30/16 06:57 Dose: 1 mg Amikacin Sulfate 250 mg/ (Sodium Chloride) 101 mls @ 100.609 mls/hr IVPB MWF [facility] Last Admin: 09/30/16 09:22 Dose: 100.609 mls/hr Linezolid (Zyvox 600mg/300ml D5w) 600 mg in 300 mls @ 300 mls/hr IVPB Q12@0400, 1600 [facility] Last Admin: 09/30/16 03:21 Dose: 300 mls/hr Meropenem 500 mg/ Sodium (Chloride) 100 mls @ 100 mls/hr IVPB DAILY@0100 [facility] Last Admin: 09/30/16 00:55 Dose: 100 mls/hr Piperacillin Sod/Tazobactam (Sod 2.25 gm/ Sodium Chloride) 100 mls @ 100 mls/ hr IVPB Q12@0200,1400 [facility] Last Admin: 09/30/16 01:01 Dose: 100 mls/hr Insulin Detemir (Levemir) 30 units SC HS [facility] Last Admin: 09/29/16 21:23 Dose: 30 units Insulin Human Lispro (Humalog) 8 units SC AC [facility] Last Admin: 09/30/16 12:29 Dose: Not Given Lidocaine (Lidoderm) 1 ea TD DAILY [facility] Last Admin: 09/30/16 09:33 Dose: 1 ea Medroxyprogesterone Acetate (Provera) 10 mg PO DAILY [facility] Last Admin: 09/30/16 09:24 Dose: 10 mg Nystatin (Mycostatin Oint) 1 applic TOP TID [facility] Last Admin: 09/30/16 14:23 Dose: Not Given Ondansetron HCl (Zofran Inj) 4 mg IVP Q6 PRN PRN Reason: Nausea/Vomiting Last Admin: 09/19/16 10:26 Dose: 4 mg Pantoprazole Sodium (Protonix Ec Tab) 40 mg PO DAILY [facility] Last Admin: 09/30/16 09:24 Dose: 40 mg Sevelamer HCl (Renagel) 1,600 mg PO TID [facility] Last Admin: 09/30/16 09:24 Dose: 1,600 mg Topiramate (Topamax) 50 mg PO BID [facility] Last Admin: 09/30/16 09:27 Dose: Not Given Vitamin B Complex/Vit C/Folic Acid (Nephro-Ajay) 1 tab PO DAILY [facility] Last Admin: 09/30/16 09:23 Dose: 1 tab - Labs Labs: 09/29/16 05:30 09/29/16 05:30 PT 13.0 SECONDS (9.6-11.2) H 09/29/16 05:30 INR 1.25 (0.92-1.08) H 09/29/16 05:30 APTT 32.5 SECONDS (23.3-32.5) 09/29/16 05:30 - Constitutional Appears: No Acute Distress - Head Exam Head Exam: NORMAL INSPECTION - Eye Exam Eye Exam: Normal appearance - ENT Exam ENT Exam: Mucous Membranes Moist - Neck Exam Neck Exam: Normal Inspection Additional comments: Currently receiving hemodialysis via right subclavian permacath with good pressures. - Respiratory Exam Respiratory Exam: Clear to Ausculation Bilateral, NORMAL BREATHING PATTERN - Cardiovascular Exam Cardiovascular Exam: REGULAR RHYTHM, +S1, +S2 - GI/Abdominal Exam GI & Abdominal Exam: Soft, Normal Bowel Sounds - Extremities Exam Additional comments: No changes. R lower leg/ankle is excessively warm, tender, swollen. R ankle dressing is intact. PICC line intact L femoral vein. Contractures left hand and mild edema, but hand is warm and non-tender. R hand OK (minus 3rd digit) - Back Exam Back Exam: NORMAL INSPECTION - Neurological Exam Neurological Exam: Alert, Awake, CN II-XII Intact, Oriented x3 - Psychiatric Exam Psychiatric exam: Anxious, Normal Affect Assessment and Plan (1) Osteomyelitis of ankle or foot Assessment & Plan: For right below the amputation tomorrow. SEE SUBJECTIVE. Status: Acute (2) ESRD (end stage renal disease) on dialysis Assessment & Plan: SEE SUBJECTIVE. Status: Chronic (3) DM type 2 (diabetes mellitus, type 2) Assessment & Plan: SEE SUBJECTIVE. Status: Chronic (4) Coagulopathy Assessment & Plan: SEE SUBJECTIVE. Status: Chronic (5) Peripheral arterial occlusive disease Status: Chronic (6) Anemia, blood loss Assessment & Plan: SEE SUBJECTIVE. Status: Acute
--- NOTE | 2016-09-30 16:52 | PN ---
DATE: 09/30/2016 LOCATION: Room 663. SUBJECTIVE: This is a 46-year-old female with recent uncontrolled type 2 insulin-requiring diabetes, now being followed closely for metabolic management. She is scheduled for a right below-knee amputa tion procedure tomorrow at 2 p.m., as noted. LABORATORY DATA: Her glycemic levels are near optimal and have ranged from 109 to 234 mg/dL. Her la test chemistries include a BUN of 27, sodium 140, potassium 3.4, chloride 100, CO2 26, glucose 234, a nd creatinine 6.1. ASSESSMENT AND PLAN: So, at this time, will modify her basal and bolus insulin regimen, which she is currently being given Levemir 30 units at bedtime and Humalog given as 8 units b.i.d. before meals. Will give her a stat dose of Levemir at 10 units at 10 a.m. tomorrow morning and start D5 and half n ormal saline infusion at 8:00 tomorrow morning. We will try to obtain glucose testing by arm check a t least every 6 hours starting tomorrow morning with a low-dose correction scale using Humalog insuli n as given. Will titrate incrementally as indicated to optimize metabolic control. Will follow her closely metabolically to optimize glycemic control prior and postoperatively thereof. Will follow. Irene Ambrose MD cc: [id number] TT: 09/30/2016 16:52:06 Confirmation # [id number] Dictation # [id number]
[2016-09-30] MEDS: Epoetin Alfa 20000 UNIT/ML Inj IV SCH (16:53)
--- NOTE | 2016-09-30 18:21 | CP.PCM.PN ---
Subjective - Date & Time of Evaluation Date of Evaluation: 09/30/16 Time of Evaluation: 18:12 - Subjective Subjective: I D NOTE PATIENT SCHEDULED FOR BKA TOMORROW WILL RE EVALUATE ANTIBIOTIC COVERAGE POST SURGERY Objective - Vital Signs/Intake and Output Vital Signs (last 24 hours): Temp Pulse Resp BP Pulse Ox 98.4 F 97 H 20 180/87 H 96 09/30/16 16:06 09/30/16 16:06 09/30/16 16:06 09/30/16 16:06 09/30/16 16:06 - Medications Medications: Current Medications Acetaminophen (Tylenol 325mg Tab) 650 mg PO Q4 PRN PRN Reason: Fever >100.4 F Last Admin: 09/27/16 15:51 Dose: 650 mg Acetaminophen (Tylenol 325mg Tab) 650 mg PO Q4 PRN PRN Reason: Pain, moderate (4-7) Last Admin: 09/16/16 22:34 Dose: 650 mg Albuterol Sulfate (Albuterol 0.083% Inhal Barbie (2.5 Mg/3 Ml) Ud) 2.5 mg INH RQ4 PRN PRN Reason: Shortness of Breath Albuterol/Ipratropium (Duoneb 3 Mg/0.5 Mg (3 Ml) Ud) 3 ml INH RQ4 PRN PRN Reason: Shortness of Breath Apixaban (Eliquis) 5 mg PO BID [facility] PRN Reason: Protocol Last Admin: 09/30/16 16:52 Dose: Not Given Aspirin (Ecotrin) 81 mg PO DAILY [facility] Last Admin: 09/30/16 09:29 Dose: Not Given Atorvastatin Calcium (Lipitor) 40 mg PO DAILY [facility] Last Admin: 09/30/16 09:27 Dose: 40 mg Benzonatate (Tessalon Perles) 200 mg PO TID PRN PRN Reason: Cough Last Admin: 09/29/16 08:52 Dose: 200 mg Cinacalcet (Sensipar) 30 mg PO DAILY [facility] Last Admin: 09/30/16 09:25 Dose: 30 mg Epoetin Tha (Procrit) 20,000 unit IV MWF [facility] Last Admin: 09/30/16 16:53 Dose: 20,000 unit Ergocalciferol (Drisdol 50,000 Intl Units Cap) 1 cap PO Q7D [facility] Stop: 11/06/16 11:16 Last Admin: 09/25/16 13:24 Dose: 1 cap Fluconazole (Diflucan) 100 mg PO DAILY [facility] Last Admin: 09/30/16 09:23 Dose: 100 mg Hydrocortisone (Anusol-Hc) 1 applic [place] BID [facility] Last Admin: 09/30/16 16:26 Dose: 1 applic Hydromorphone HCl (Dilaudid) 2 mg PO Q4 PRN PRN Reason: Pain, moderate (4-7) Last Admin: 09/30/16 12:34 Dose: 2 mg Hydromorphone HCl (Dilaudid) 1 mg IVP Q2H PRN PRN Reason: Pain, severe (8-10) Last Admin: 09/30/16 06:57 Dose: 1 mg Amikacin Sulfate 250 mg/ (Sodium Chloride) 101 mls @ 100.609 mls/hr IVPB MWF [facility] Last Admin: 09/30/16 09:22 Dose: 100.609 mls/hr Linezolid (Zyvox 600mg/300ml D5w) 600 mg in 300 mls @ 300 mls/hr IVPB Q12@0400, 1600 [facility] Last Admin: 09/30/16 16:20 Dose: 300 mls/hr Meropenem 500 mg/ Sodium (Chloride) 100 mls @ 100 mls/hr IVPB DAILY@0100 [facility] Last Admin: 09/30/16 00:55 Dose: 100 mls/hr Piperacillin Sod/Tazobactam (Sod 2.25 gm/ Sodium Chloride) 100 mls @ 100 mls/ hr IVPB Q12@0600,1800 [facility] Last Admin: 09/30/16 17:18 Dose: 100 mls/hr Insulin Detemir (Levemir) 30 units SC HS [facility] Last Admin: 09/29/16 21:23 Dose: 30 units Insulin Human Lispro (Humalog) 8 units SC AC [facility] Last Admin: 09/30/16 16:27 Dose: 8 units Lidocaine (Lidoderm) 1 ea TD DAILY [facility] Last Admin: 09/30/16 09:33 Dose: 1 ea Medroxyprogesterone Acetate (Provera) 10 mg PO DAILY [facility] Last Admin: 09/30/16 09:24 Dose: 10 mg Nystatin (Mycostatin Oint) 1 applic TOP TID [facility] Last Admin: 09/30/16 16:53 Dose: 1 applic Ondansetron HCl (Zofran Inj) 4 mg IVP Q6 PRN PRN Reason: Nausea/Vomiting Last Admin: 09/19/16 10:26 Dose: 4 mg Pantoprazole Sodium (Protonix Ec Tab) 40 mg PO DAILY [facility] Last Admin: 09/30/16 09:24 Dose: 40 mg Sevelamer HCl (Renagel) 1,600 mg PO TID [facility] Last Admin: 09/30/16 16:54 Dose: 1,600 mg Topiramate (Topamax) 50 mg PO BID [facility] Last Admin: 09/30/16 16:25 Dose: 50 mg Vitamin B Complex/Vit C/Folic Acid (Nephro-Ajay) 1 tab PO DAILY [facility] Last Admin: 09/30/16 09:23 Dose: 1 tab - Labs Labs: 09/29/16 05:30 09/29/16 05:30 PT 13.0 SECONDS (9.6-11.2) H 09/29/16 05:30 INR 1.25 (0.92-1.08) H 09/29/16 05:30 APTT 32.5 SECONDS (23.3-32.5) 09/29/16 05:30
[2016-09-30] MEDS: Insulin Detemir 100 Units/ml Inj SC SCH (22:30)
[2016-09-30] MEDS: Dextrose 5%/0.45% NS 1,000 ML IV SCH (22:45)
--- NOTE | 2016-10-01 01:01 | CP.PCM.PN ---
Subjective - Date & Time of Evaluation Date of Evaluation: 09/30/16 Time of Evaluation: 21:00 - Subjective Subjective: Patient is stable enough to undergo her surgery for Right BKA in AM due to her deteriorating Right LE peripherally, in spite of the prolonged treatment with IV Antibiotics There is no Seizures. She is on Topamax 50 mg Q12 hrs. Objective - Vital Signs/Intake and Output Vital Signs (last 24 hours): Temp Pulse Resp BP Pulse Ox 99.1 F 109 H 20 104/54 L 99 10/01/16 00:14 10/01/16 00:14 10/01/16 00:14 10/01/16 00:14 10/01/16 00:14 - Medications Medications: Current Medications Acetaminophen (Tylenol 325mg Tab) 650 mg PO Q4 PRN PRN Reason: Fever >100.4 F Last Admin: 09/27/16 15:51 Dose: 650 mg Acetaminophen (Tylenol 325mg Tab) 650 mg PO Q4 PRN PRN Reason: Pain, moderate (4-7) Last Admin: 09/16/16 22:34 Dose: 650 mg Albuterol Sulfate (Albuterol 0.083% Inhal Barbie (2.5 Mg/3 Ml) Ud) 2.5 mg INH RQ4 PRN PRN Reason: Shortness of Breath Albuterol/Ipratropium (Duoneb 3 Mg/0.5 Mg (3 Ml) Ud) 3 ml INH RQ4 PRN PRN Reason: Shortness of Breath Apixaban (Eliquis) 5 mg PO BID [facility] PRN Reason: Protocol Last Admin: 09/30/16 16:52 Dose: Not Given Aspirin (Ecotrin) 81 mg PO DAILY [facility] Last Admin: 09/30/16 09:29 Dose: Not Given Atorvastatin Calcium (Lipitor) 40 mg PO DAILY [facility] Last Admin: 09/30/16 09:27 Dose: 40 mg Benzonatate (Tessalon Perles) 200 mg PO TID PRN PRN Reason: Cough Last Admin: 09/29/16 08:52 Dose: 200 mg Cinacalcet (Sensipar) 30 mg PO DAILY [facility] Last Admin: 09/30/16 09:25 Dose: 30 mg Epoetin Tha (Procrit) 20,000 unit IV MWF [facility] Last Admin: 09/30/16 16:53 Dose: 20,000 unit Ergocalciferol (Drisdol 50,000 Intl Units Cap) 1 cap PO Q7D [facility] Stop: 11/06/16 11:16 Last Admin: 09/25/16 13:24 Dose: 1 cap Fluconazole (Diflucan) 100 mg PO DAILY [facility] Last Admin: 09/30/16 09:23 Dose: 100 mg Hydrocortisone (Anusol-Hc) 1 applic [place] BID [facility] Last Admin: 09/30/16 16:26 Dose: 1 applic Hydromorphone HCl (Dilaudid) 2 mg PO Q4 PRN PRN Reason: Pain, moderate (4-7) Last Admin: 09/30/16 12:34 Dose: 2 mg Hydromorphone HCl (Dilaudid) 1 mg IVP Q2H PRN PRN Reason: Pain, severe (8-10) Last Admin: 09/30/16 22:29 Dose: 1 mg Amikacin Sulfate 250 mg/ (Sodium Chloride) 101 mls @ 100.609 mls/hr IVPB MWF [facility] Last Admin: 09/30/16 09:22 Dose: 100.609 mls/hr Linezolid (Zyvox 600mg/300ml D5w) 600 mg in 300 mls @ 300 mls/hr IVPB Q12@0400, 1600 [facility] Last Admin: 09/30/16 16:20 Dose: 300 mls/hr Meropenem 500 mg/ Sodium (Chloride) 100 mls @ 100 mls/hr IVPB DAILY@0100 [facility] Last Admin: 09/30/16 00:55 Dose: 100 mls/hr Piperacillin Sod/Tazobactam (Sod 2.25 gm/ Sodium Chloride) 100 mls @ 100 mls/ hr IVPB Q12@0600,1800 [facility] Last Admin: 09/30/16 17:18 Dose: 100 mls/hr Dextrose/Sodium Chloride (Dextrose 5%/0.45% Ns 1000 Ml) 1,000 mls @ 80 mls/hr IV .[id number] [facility] Stop: 10/01/16 22:38 Last Admin: 09/30/16 22:45 Dose: 80 mls/hr Insulin Detemir (Levemir) 30 units SC HS [facility] Last Admin: 09/30/16 22:30 Dose: 30 units Insulin Human Lispro (Humalog) 8 units SC AC [facility] Last Admin: 09/30/16 16:27 Dose: 8 units Insulin Human Regular (Humulin R) 0 units SC ACHS [facility] PRN Reason: Protocol Lidocaine (Lidoderm) 1 ea TD DAILY [facility] Last Admin: 09/30/16 09:33 Dose: 1 ea Medroxyprogesterone Acetate (Provera) 10 mg PO DAILY [facility] Last Admin: 09/30/16 09:24 Dose: 10 mg Nystatin (Mycostatin Oint) 1 applic TOP TID [facility] Last Admin: 09/30/16 16:53 Dose: 1 applic Ondansetron HCl (Zofran Inj) 4 mg IVP Q6 PRN PRN Reason: Nausea/Vomiting Last Admin: 09/19/16 10:26 Dose: 4 mg Pantoprazole Sodium (Protonix Ec Tab) 40 mg PO DAILY [facility] Last Admin: 09/30/16 09:24 Dose: 40 mg Sevelamer HCl (Renagel) 1,600 mg PO TID [facility] Last Admin: 09/30/16 16:54 Dose: 1,600 mg Topiramate (Topamax) 50 mg PO BID [facility] Last Admin: 09/30/16 16:25 Dose: 50 mg Vitamin B Complex/Vit C/Folic Acid (Nephro-Ajay) 1 tab PO DAILY [facility] Last Admin: 09/30/16 09:23 Dose: 1 tab - Labs Labs: 09/29/16 05:30 09/29/16 05:30 PT 13.0 SECONDS (9.6-11.2) H 09/29/16 05:30 INR 1.25 (0.92-1.08) H 09/29/16 05:30 APTT 32.5 SECONDS (23.3-32.5) 09/29/16 05:30 Assessment and Plan (1) Diabetes Status: Chronic (2) ESRD (end stage renal disease) Status: Chronic (3) Cellulitis of leg Status: Acute (4) Hyperlipidemia Status: Chronic (5) Back pain Status: Acute (6) Bacteremia due to Gram-negative bacteria Status: Acute (7) Diabetes mellitus type 2 with peripheral artery disease Status: Acute (8) PVD (peripheral vascular disease) Status: Acute
[2016-10-01] MEDS: Meropenem 500 MG in Sodium Chloride 0.9% 100 ML IVPB SCH (02:00)
[2016-10-01] MEDS: Linezolid 600 mg in D5W 300 ml 600 MG/300 ML BAG IVPB SCH (04:50)
[2016-10-01] MEDS: Insulin Regular 100 units/ml SC SCH ×3 (06:36→21:39)
[2016-10-01 06:46] LABS: BASO # 0.2 K/uL (0.0-0.2); BASO % 1.5 % (0.0-2.0); EOS # 0.4 K/uL (0.0-0.7); EOS % 3.3 % (0.0-4.0); HEMATOCRIT 30.5 % (34.0-47.0); LYMPH # 1.4 K/uL (1.0-4.3); LYMPH % 12.1 % (20.0-40.0); MEAN CELL VOLUME 89.6 fl (81.0-99.0); MEAN CORPUSCULAR HEMOGLOBIN 28.5 pg (27.0-31.0); MEAN CORPUSCULAR HGB CONC 31.8 g/dL (33.0-37.0); MEAN PLATELET VOLUME 8.6 fl (7.2-11.7); MONO # 0.9 K/uL (0.0-0.8); MONO % 7.4 % (0.0-10.0); NEUT # 8.8 K/uL (1.8-7.0); NEUT % 75.7 % (50.0-75.0); NRBC % 0.1 % (0.0-0.0); RED CELL DISTRIBUTION WIDTH 17.4 % (11.5-14.5); WHITE BLOOD COUNT 11.7 K/uL (4.8-10.8)
[2016-10-01 07:46] LABS: ALB/GLOB RATIO 0.7 (1.0-2.1); BILIRUBIN,TOTAL 0.7 mg/dl (0.2-1.3); CALCIUM 9.1 mg/dL (8.4-10.2); POTASSIUM 3.7 MMOL/L (3.6-5.0); TOTAL PROTEIN 8.6 G/DL (6.3-8.2)
[2016-10-01] MEDS: Nystatin Ointment TOP SCH ×2 (09:00→12:51)
[2016-10-01] MEDS: Hydrocortisone 2.5% (Rectal) CREAM PR SCH (09:03)
[2016-10-01] MEDS: Lidocaine 5% Patch TD SCH (09:04)
[2016-10-01] MEDS: Pantoprazole 40 mg EC Tab PO SCH (09:05)
[2016-10-01] MEDS: Multivitamin Vitamin B Complex (Nephro-Vite) Tab PO SCH (09:05)
[2016-10-01 09:12] LABS: HEMATOCRIT 22.6 % (35.0-45.0); HEMOGLOBIN 7.2 g/dL (11.7-15.5); RDW 19.3 % (11.0-15.0)
--- NOTE | 2016-10-01 09:52 | CP.PCM.PN ---
Subjective - Date & Time of Evaluation Date of Evaluation: 10/01/16 Time of Evaluation: 09:46 - Subjective Subjective: Pt is scheduled for amputation surgery today. Post transfusion hgb is 9.7gms. There are 2 more units available for the OR. Would start the eliquis right after surgery, Objective - Vital Signs/Intake and Output Vital Signs (last 24 hours): Temp Pulse Resp BP Pulse Ox 97.6 F 104 H 17 125/75 95 10/01/16 07:37 10/01/16 07:37 10/01/16 07:37 10/01/16 07:37 10/01/16 07:37 - Medications Medications: Current Medications Acetaminophen (Tylenol 325mg Tab) 650 mg PO Q4 PRN PRN Reason: Fever >100.4 F Last Admin: 09/27/16 15:51 Dose: 650 mg Acetaminophen (Tylenol 325mg Tab) 650 mg PO Q4 PRN PRN Reason: Pain, moderate (4-7) Last Admin: 09/16/16 22:34 Dose: 650 mg Albuterol Sulfate (Albuterol 0.083% Inhal Barbie (2.5 Mg/3 Ml) Ud) 2.5 mg INH RQ4 PRN PRN Reason: Shortness of Breath Albuterol/Ipratropium (Duoneb 3 Mg/0.5 Mg (3 Ml) Ud) 3 ml INH RQ4 PRN PRN Reason: Shortness of Breath Apixaban (Eliquis) 5 mg PO BID [facility] PRN Reason: Protocol Last Admin: 09/30/16 16:52 Dose: Not Given Aspirin (Ecotrin) 81 mg PO DAILY [facility] Last Admin: 09/30/16 09:29 Dose: Not Given Atorvastatin Calcium (Lipitor) 40 mg PO DAILY [facility] Last Admin: 09/30/16 09:27 Dose: 40 mg Benzonatate (Tessalon Perles) 200 mg PO TID PRN PRN Reason: Cough Last Admin: 09/29/16 08:52 Dose: 200 mg Cinacalcet (Sensipar) 30 mg PO DAILY [facility] Last Admin: 10/01/16 09:08 Dose: 30 mg Epoetin Tha (Procrit) 20,000 unit IV MWF [facility] Last Admin: 09/30/16 16:53 Dose: 20,000 unit Ergocalciferol (Drisdol 50,000 Intl Units Cap) 1 cap PO Q7D [facility] Stop: 11/06/16 11:16 Last Admin: 09/25/16 13:24 Dose: 1 cap Fluconazole (Diflucan) 100 mg PO DAILY [facility] Last Admin: 10/01/16 09:03 Dose: 100 mg Hydrocortisone (Anusol-Hc) 1 applic [place] BID [facility] Last Admin: 10/01/16 09:03 Dose: 1 applic Hydromorphone HCl (Dilaudid) 2 mg PO Q4 PRN PRN Reason: Pain, moderate (4-7) Last Admin: 09/30/16 12:34 Dose: 2 mg Hydromorphone HCl (Dilaudid) 1 mg IVP Q2H PRN PRN Reason: Pain, severe (8-10) Last Admin: 10/01/16 06:06 Dose: 1 mg Amikacin Sulfate 250 mg/ (Sodium Chloride) 101 mls @ 100.609 mls/hr IVPB MWF [facility] Last Admin: 09/30/16 09:22 Dose: 100.609 mls/hr Linezolid (Zyvox 600mg/300ml D5w) 600 mg in 300 mls @ 300 mls/hr IVPB Q12@0400, 1600 [facility] Last Admin: 10/01/16 04:50 Dose: 300 mls/hr Meropenem 500 mg/ Sodium (Chloride) 100 mls @ 100 mls/hr IVPB DAILY@0100 [facility] Last Admin: 10/01/16 02:00 Dose: 100 mls/hr Piperacillin Sod/Tazobactam (Sod 2.25 gm/ Sodium Chloride) 100 mls @ 100 mls/ hr IVPB Q12@0600,1800 [facility] Last Admin: 10/01/16 06:05 Dose: 100 mls/hr Dextrose/Sodium Chloride (Dextrose 5%/0.45% Ns 1000 Ml) 1,000 mls @ 80 mls/hr IV .[id number] [facility] Stop: 10/01/16 22:38 Last Admin: 09/30/16 22:45 Dose: 80 mls/hr Insulin Detemir (Levemir) 30 units SC [facility] Last Admin: 09/30/16 22:30 Dose: 30 units Insulin Human Lispro (Humalog) 8 units SC AC [facility] Last Admin: 09/30/16 16:27 Dose: 8 units Insulin Human Regular (Humulin R) 0 units SC ACHS [facility] PRN Reason: Protocol Last Admin: 10/01/16 06:36 Dose: Not Given Lidocaine (Lidoderm) 1 ea TD DAILY [facility] Last Admin: 10/01/16 09:04 Dose: 1 ea Medroxyprogesterone Acetate (Provera) 10 mg PO DAILY [facility] Last Admin: 10/01/16 09:06 Dose: 10 mg Nystatin (Mycostatin Oint) 1 applic TOP TID [facility] Last Admin: 09/30/16 16:53 Dose: 1 applic Ondansetron HCl (Zofran Inj) 4 mg IVP Q6 PRN PRN Reason: Nausea/Vomiting Last Admin: 09/19/16 10:26 Dose: 4 mg Pantoprazole Sodium (Protonix Ec Tab) 40 mg PO DAILY [facility] Last Admin: 10/01/16 09:05 Dose: 40 mg Sevelamer HCl (Renagel) 1,600 mg PO TID [facility] Last Admin: 10/01/16 09:06 Dose: Not Given Topiramate (Topamax) 50 mg PO BID [facility] Last Admin: 10/01/16 09:09 Dose: 50 mg Vitamin B Complex/Vit C/Folic Acid (Nephro-Ajay) 1 tab PO DAILY [facility] Last Admin: 10/01/16 09:05 Dose: 1 tab - Labs Labs: 10/01/16 06:42 10/01/16 07:38 PT 13.0 SECONDS (9.6-11.2) H 09/29/16 05:30 INR 1.25 (0.92-1.08) H 09/29/16 05:30 APTT 32.5 SECONDS (23.3-32.5) 09/29/16 05:30
--- NOTE | 2016-10-01 10:54 | CP.PCM.PN ---
Subjective - Date & Time of Evaluation Date of Evaluation: 10/01/16 Time of Evaluation: 10:52 - Subjective Subjective: Patient and bed appeared to be comfortable no significant changes Vital sign noted to be okay Patient reported that is going for surgery on the right leg Continue hemodialysis as scheduled for tomorrow. Assessment/Plan: End stage renal disease on hemodialysis (MWF) via permacath: Will plan for dialysis today as ordered. continue with Nephrovite 1 tab/day. Anemia: PRBC as needed. On MARTHA as Epogen 20,000 with HD. last Hb 8.2 TSAT 73% and ferritin >1000. Hyperphosphatemia: continue with current meds as renagel 1600 TID last phos level 5.0 Secondary hyperparathyroidism with Vit D Deficiency: continue with sensipar 30 mg/day. Last PTH level 423. Vit D <12. supplemented with ergo 50,000 weekly Hypertension controlled: BP mostly on low side Glycemic control, Dialysis consistent diet Objective - Vital Signs/Intake and Output Vital Signs (last 24 hours): Temp Pulse Resp BP Pulse Ox 97.6 F 104 H 17 125/75 95 10/01/16 07:37 10/01/16 07:37 10/01/16 07:37 10/01/16 07:37 10/01/16 07:37 - Medications Medications: Current Medications Acetaminophen (Tylenol 325mg Tab) 650 mg PO Q4 PRN PRN Reason: Fever >100.4 F Last Admin: 09/27/16 15:51 Dose: 650 mg Acetaminophen (Tylenol 325mg Tab) 650 mg PO Q4 PRN PRN Reason: Pain, moderate (4-7) Last Admin: 09/16/16 22:34 Dose: 650 mg Albuterol Sulfate (Albuterol 0.083% Inhal Barbie (2.5 Mg/3 Ml) Ud) 2.5 mg INH RQ4 PRN PRN Reason: Shortness of Breath Albuterol/Ipratropium (Duoneb 3 Mg/0.5 Mg (3 Ml) Ud) 3 ml INH RQ4 PRN PRN Reason: Shortness of Breath Apixaban (Eliquis) 5 mg PO BID [facility] PRN Reason: Protocol Last Admin: 09/30/16 16:52 Dose: Not Given Aspirin (Ecotrin) 81 mg PO DAILY [facility] Last Admin: 09/30/16 09:29 Dose: Not Given Atorvastatin Calcium (Lipitor) 40 mg PO DAILY [facility] Last Admin: 09/30/16 09:27 Dose: 40 mg Benzonatate (Tessalon Perles) 200 mg PO TID PRN PRN Reason: Cough Last Admin: 09/29/16 08:52 Dose: 200 mg Cinacalcet (Sensipar) 30 mg PO DAILY [facility] Last Admin: 10/01/16 09:08 Dose: 30 mg Epoetin Tha (Procrit) 20,000 unit IV [facility] [place] Last Admin: 09/30/16 16:53 Dose: 20,000 unit Ergocalciferol (Drisdol 50,000 Intl Units Cap) 1 cap PO Q7D [facility] Stop: 11/06/16 11:16 Last Admin: 09/25/16 13:24 Dose: 1 cap Fluconazole (Diflucan) 100 mg PO DAILY [facility] Last Admin: 10/01/16 09:03 Dose: 100 mg Hydrocortisone (Anusol-Hc) 1 applic [place] BID [facility] Last Admin: 10/01/16 09:03 Dose: 1 applic Hydromorphone HCl (Dilaudid) 2 mg PO Q4 PRN PRN Reason: Pain, moderate (4-7) Last Admin: 09/30/16 12:34 Dose: 2 mg Hydromorphone HCl (Dilaudid) 1 mg IVP Q2H PRN PRN Reason: Pain, severe (8-10) Last Admin: 10/01/16 06:06 Dose: 1 mg Amikacin Sulfate 250 mg/ (Sodium Chloride) 101 mls @ 100.609 mls/hr IVPB [facility] [place] Last Admin: 09/30/16 09:22 Dose: 100.609 mls/hr Linezolid (Zyvox 600mg/300ml D5w) 600 mg in 300 mls @ 300 mls/hr IVPB Q12@0400, 1600 [facility] Last Admin: 10/01/16 04:50 Dose: 300 mls/hr Meropenem 500 mg/ Sodium (Chloride) 100 mls @ 100 mls/hr IVPB DAILY@0100 [facility] Last Admin: 10/01/16 02:00 Dose: 100 mls/hr Piperacillin Sod/Tazobactam (Sod 2.25 gm/ Sodium Chloride) 100 mls @ 100 mls/ hr IVPB Q12@0600,1800 [facility] Last Admin: 10/01/16 06:05 Dose: 100 mls/hr Dextrose/Sodium Chloride (Dextrose 5%/0.45% Ns 1000 Ml) 1,000 mls @ 80 mls/hr IV .[id number] [facility] Stop: 10/01/16 22:38 Last Admin: 09/30/16 22:45 Dose: 80 mls/hr Insulin Detemir (Levemir) 30 units SC HS [facility] Last Admin: 09/30/16 22:30 Dose: 30 units Insulin Human Lispro (Humalog) 8 units SC AC [facility] Last Admin: 09/30/16 16:27 Dose: 8 units Insulin Human Regular (Humulin R) 0 units SC ACHS [facility] PRN Reason: Protocol Last Admin: 10/01/16 06:36 Dose: Not Given Lidocaine (Lidoderm) 1 ea TD DAILY [facility] Last Admin: 10/01/16 09:04 Dose: 1 ea Medroxyprogesterone Acetate (Provera) 10 mg PO DAILY [facility] Last Admin: 10/01/16 09:06 Dose: 10 mg Nystatin (Mycostatin Oint) 1 applic TOP TID [facility] Last Admin: 09/30/16 16:53 Dose: 1 applic Ondansetron HCl (Zofran Inj) 4 mg IVP Q6 PRN PRN Reason: Nausea/Vomiting Last Admin: 09/19/16 10:26 Dose: 4 mg Pantoprazole Sodium (Protonix Ec Tab) 40 mg PO DAILY [facility] Last Admin: 10/01/16 09:05 Dose: 40 mg Sevelamer HCl (Renagel) 1,600 mg PO TID [facility] Last Admin: 10/01/16 09:06 Dose: Not Given Topiramate (Topamax) 50 mg PO BID [facility] Last Admin: 10/01/16 09:09 Dose: 50 mg Vitamin B Complex/Vit C/Folic Acid (Nephro-Ajay) 1 tab PO DAILY [facility] Last Admin: 10/01/16 09:05 Dose: 1 tab - Labs Labs: 10/01/16 06:42 10/01/16 07:38 PT 13.0 SECONDS (9.6-11.2) H 09/29/16 05:30 INR 1.25 (0.92-1.08) H 09/29/16 05:30 APTT 32.5 SECONDS (23.3-32.5) 09/29/16 05:30 Assessment and Plan (1) ESRD (end stage renal disease) Status: Chronic (2) Cellulitis of leg Status: Acute
[2016-10-01] MEDS: Dextrose 5%/0.45% NS 1,000 ML IV SCH (11:53)
[2016-10-01] MEDS ORDERED: ePHEDrine 50 mg/ml Inj ONE (14:18)
[2016-10-01] MEDS ORDERED: Propofol 10 mg/ml Inj (20 ML) ONE (14:18)
[2016-10-01] MEDS ORDERED: Rocuronium 10 mg/ml (5 ml) ONE (14:19)
[2016-10-01] MEDS ORDERED: Midazolam 2 MG/2 ML VIAL ONE (14:19)
[2016-10-01] MEDS ORDERED: Etomidate 20 mg/10ml Inj IV ONE (14:20)
[2016-10-01] MEDS ORDERED: Succinylcholine 200 mg/10 ml Inj IV ONE (14:20)
[2016-10-01] MEDS ORDERED: Linezolid 600 mg in D5W 300 ml IVPB ONE (15:00)
[2016-10-01] MEDS ORDERED: Sodium Chloride 0.9% 300 ML IV ONE (16:29)
[2016-10-01] MEDS ORDERED: Sodium Chloride 0.9% 1,000 ML IV ONE (16:29)
[2016-10-01] MEDS ORDERED: HYDROmorphone 0.5 mg/0.5 ml ISec ONE (17:21)
[2016-10-01] MEDS: HYDROmorphone 0.5 mg/0.5 ml ISec IVP PRN ×3 (17:25→20:54)
--- NOTE | 2016-10-01 17:25 | PCM.SURG1 ---
Surgeon's Initial Post Op Note - Surgeon's Notes Surgeon: Dr. Carlson Case Worker: Dr. Doran, Dr. Fung PGY-1, Dr. Baldwin DPM Type of Anesthesia: General Endo Pre-Operative Diagnosis: Right Lower extremity infection Operative Findings: See operative note Post-Operative Diagnosis: Right Lower extremity infection Operation Performed: Right below the knee amputation Specimen/Specimens Removed: Right leg Estimated Blood Loss: EBL {In ML}: 200 Blood Products Given: N/A Drains Used: No Drains Post-Op Condition: Good Date of Surgery/Procedure: 10/01/16 Time of Surgery/Procedure: 17:26
[2016-10-01] MEDS ORDERED: Oxycodone/Acetaminophen 5/325 mg Tab PO PRN (17:27)
[2016-10-01] MEDS ORDERED: HYDROmorphone 0.5 mg/0.5 ml ISec IVP PRN (17:29)
[2016-10-01] MEDS ORDERED: Sodium Chloride 0.9% 1,000 ML IV SCH (17:30)
[2016-10-01] MEDS ORDERED: HYDROmorphone 0.5 mg/0.5 ml ISec IVP ONE ×2 (17:40→18:55)
--- NOTE | 2016-10-01 18:14 | PN ---
DATE: 10/01/2016 ROOM: 663 SUBJECTIVE: This is a 46-year-old female with recent uncontrolled type 2 insulin-requiring diabetes with severe vasculopathy and severe peripheral arterial vasculopathy and currently will be undergoing today a right above-knee amputation for a nonhealing neuropathic heel ulcer with underlying osteomye litis. She was scheduled to go today at 2:00 p.m. for the aforementioned surgical procedure. Her la test chemistries showed a BUN of 22, sodium 139, potassium 3.7, chloride 98, CO2 of 24, glucose 131, and creatinine 4.7. Her glucose levels have ranged from 109-121 mg/dL. So at this time, we will act ually hold off on the Humalog given as 8 units subQ t.i.d. before meals just for today as ordered. W e will continue the dextrose infusion as given and continue also the basal insulin given as Levemir 3 0 units subQ at bedtime daily as ordered. We will titrate incrementally as indicated to optimize met abolic control. We will follow and advise accordingly. Irene Ambrose MD cc: [id number] TT: 10/01/2016 18:14:20 Confirmation # [id number] Dictation # [id number] [email or web address]
--- NOTE | 2016-10-01 20:47 | CP.PCM.PN ---
Subjective - Date & Time of Evaluation Date of Evaluation: 10/01/16 Time of Evaluation: 20:42 - Subjective Subjective: Patient is status-post right below the knee amputation. This was accomplished by the vascular surgeons without complication. She is currently awake but in considerable pain (feels as if right leg is pressing into the mattress). No [employer] in place, so Dilaudid 1mg iv q2h prn has been ordered by me. No dyspnea or cough, but because oxygen saturation was only 93, nasal oxygen at 2L/min was started. She is afebrile with good BP (112/70) and pulse of 103. No appetite. Iv fluid changed to D5/0.9 NSS at 50ml/hr so as to avoid hypoglycemia. Renal diet (2gm Na, 2gm K, 80 g protein) and Nepro (1/day) ordered to start at breakfast tomorrow. H & H and s. glucose ordered for 5 hours. On Provera to suppress protracted, heavy menses On Topamax because of prior seizure (08/27/16) during SIRS. Objective - Vital Signs/Intake and Output Vital Signs (last 24 hours): Temp Pulse Resp BP Pulse Ox 97.2 F L 98 H 18 145/76 94 L 10/01/16 19:55 10/01/16 19:55 10/01/16 19:55 10/01/16 19:55 10/01/16 19:55 T 97 P 103 BP 112/70 Resp - unlabored O2 sat 93% RA at 2030 hours. Intake and Output: 10/01/16 10/02/16 18:59 06:59 Intake Total 300 Balance 300 - Medications Medications: Current Medications Acetaminophen (Tylenol 325mg Tab) 650 mg PO Q4 PRN PRN Reason: Fever >100.4 F Last Admin: 09/27/16 15:51 Dose: 650 mg Acetaminophen (Tylenol 325mg Tab) 650 mg PO Q4 PRN PRN Reason: Pain, moderate (4-7) Last Admin: 09/16/16 22:34 Dose: 650 mg Albuterol Sulfate (Albuterol 0.083% Inhal Barbie (2.5 Mg/3 Ml) Ud) 2.5 mg INH RQ4 PRN PRN Reason: Shortness of Breath Albuterol/Ipratropium (Duoneb 3 Mg/0.5 Mg (3 Ml) Ud) 3 ml INH RQ4 PRN PRN Reason: Shortness of Breath Apixaban (Eliquis) 5 mg PO BID [facility] PRN Reason: Protocol Last Admin: 09/30/16 16:52 Dose: Not Given Aspirin (Ecotrin) 81 mg PO DAILY [facility] Last Admin: 09/30/16 09:29 Dose: Not Given Atorvastatin Calcium (Lipitor) 40 mg PO DAILY [facility] Last Admin: 10/01/16 09:00 Dose: 40 mg Benzonatate (Tessalon Perles) 200 mg PO TID PRN PRN Reason: Cough Last Admin: 09/29/16 08:52 Dose: 200 mg Cinacalcet (Sensipar) 30 mg PO DAILY [facility] Last Admin: 10/01/16 09:08 Dose: 30 mg Epoetin Tha (Procrit) 20,000 unit IV MWF [facility] Last Admin: 09/30/16 16:53 Dose: 20,000 unit Ergocalciferol (Drisdol 50,000 Intl Units Cap) 1 cap PO Q7D [facility] Stop: 11/06/16 11:16 Last Admin: 09/25/16 13:24 Dose: 1 cap Fluconazole (Diflucan) 100 mg PO DAILY [facility] Last Admin: 10/01/16 09:03 Dose: 100 mg Hydrocortisone (Anusol-Hc) 1 applic DC BID [facility] Last Admin: 10/01/16 09:03 Dose: 1 applic Hydromorphone HCl (Dilaudid) 2 mg PO Q4 PRN PRN Reason: Pain, moderate (4-7) Last Admin: 09/30/16 12:34 Dose: 2 mg Hydromorphone HCl (Dilaudid) 0.5 mg IVP Q4 PRN PRN Reason: Pain, severe (8-10) Hydromorphone HCl (Dilaudid) 1 mg IVP Q2H PRN PRN Reason: Pain, severe (8-10) Amikacin Sulfate 250 mg/ (Sodium Chloride) 101 mls @ 100.609 mls/hr IVPB MWF [facility] Last Admin: 09/30/16 09:22 Dose: 100.609 mls/hr Linezolid (Zyvox 600mg/300ml D5w) 600 mg in 300 mls @ 300 mls/hr IVPB Q12@0400, 1600 [facility] Last Admin: 10/01/16 04:50 Dose: 300 mls/hr Meropenem 500 mg/ Sodium (Chloride) 100 mls @ 100 mls/hr IVPB DAILY@0100 [facility] Last Admin: 10/01/16 02:00 Dose: 100 mls/hr Piperacillin Sod/Tazobactam (Sod 2.25 gm/ Sodium Chloride) 100 mls @ 100 mls/ hr IVPB Q12@0600,1800 [facility] Last Admin: 10/01/16 06:05 Dose: 100 mls/hr Dextrose/Sodium Chloride (Dextrose 5%/0.45% Ns 1000 Ml) 1,000 mls @ 80 mls/hr IV .[id number] [facility] Stop: 10/01/16 22:38 Last Admin: 10/01/16 11:53 Dose: 80 mls/hr Sodium Chloride (Sodium Chloride 0.9%) 1,000 mls @ 10 mls/hr IV .Q24H JASPER Sodium Chloride (Sodium Chloride 0.9%) 1,000 mls @ 50 mls/hr IV .Q20H [facility] Stop: 10/02/16 17:27 Insulin Detemir (Levemir) 30 units SC HS [facility] Last Admin: 09/30/16 22:30 Dose: 30 units Insulin Human Lispro (Humalog) 8 units SC AC [facility] Last Admin: 09/30/16 16:27 Dose: 8 units Insulin Human Regular (Humulin R) 0 units SC ACHS [facility] PRN Reason: Protocol Last Admin: 10/01/16 11:49 Dose: Not Given Lidocaine (Lidoderm) 1 ea TD DAILY [facility] Last Admin: 10/01/16 09:04 Dose: 1 ea Medroxyprogesterone Acetate (Provera) 10 mg PO DAILY [facility] Last Admin: 10/01/16 09:06 Dose: 10 mg Nystatin (Mycostatin Oint) 1 applic TOP TID [facility] Last Admin: 10/01/16 12:51 Dose: Not Given Ondansetron HCl (Zofran Inj) 4 mg IVP Q6 PRN PRN Reason: Nausea/Vomiting Last Admin: 09/19/16 10:26 Dose: 4 mg Oxycodone/Acetaminophen (Percocet 5/325 Mg Tab) 1 tab PO Q4 PRN PRN Reason: Pain, moderate (4-7) Stop: 10/04/16 17:28 Pantoprazole Sodium (Protonix Ec Tab) 40 mg PO DAILY [facility] Last Admin: 10/01/16 09:05 Dose: 40 mg Sevelamer HCl (Renagel) 1,600 mg PO TID [facility] Last Admin: 10/01/16 12:50 Dose: Not Given Topiramate (Topamax) 50 mg PO BID [facility] Last Admin: 10/01/16 09:09 Dose: 50 mg Vitamin B Complex/Vit C/Folic Acid (Nephro-Ajay) 1 tab PO DAILY [facility] Last Admin: 10/01/16 09:05 Dose: 1 tab - Labs Labs: 10/01/16 06:42 10/01/16 07:38 PT 13.0 SECONDS (9.6-11.2) H 09/29/16 05:30 INR 1.25 (0.92-1.08) H 09/29/16 05:30 APTT 32.5 SECONDS (23.3-32.5) 09/29/16 05:30 - Constitutional Appears: Other (In pain - right residual limb.) - Head Exam Head Exam: NORMAL INSPECTION - Eye Exam Eye Exam: Normal appearance - ENT Exam ENT Exam: Mucous Membranes Moist - Neck Exam Neck Exam: Normal Inspection Additional comments: Right subclavian permacath in place. - Respiratory Exam Respiratory Exam: Clear to Ausculation Bilateral, NORMAL BREATHING PATTERN - Cardiovascular Exam Cardiovascular Exam: REGULAR RHYTHM, +S1, +S2 - GI/Abdominal Exam GI & Abdominal Exam: Soft - Extremities Exam Additional comments: Right BK residual limb is warm with intact and dry dressing covered with DEMIAN bandage. Left BK residual limb is warm and without lesions. Hands are warm and without lesions. - Neurological Exam Neurological Exam: Altered, Awake, CN II-XII Intact, Oriented x3 - Psychiatric Exam Psychiatric exam: Depressed - Skin Skin Exam: Normal Color, Warm (Buttock decubitus not evaluated.) Assessment and Plan (1) Osteomyelitis of ankle or foot Assessment & Plan: Clinically stable post right below the knee amputation. Tissues specimens sent for culture- bacterial and fungal. To continue current antibiotics for now. Dr. Lemon to decide on antibiotics. Status: Acute (2) ESRD (end stage renal disease) on dialysis Assessment & Plan: Dr. Guadarrama and associates are managing hemodialysis and other related metabolic issues. Status: Chronic (3) DM type 2 (diabetes mellitus, type 2) Assessment & Plan: Levemir being given, short acting insulin on hold. Iv D5/ 0.9NSS at 50cc/hr to avoid hypoglycemia. Dr. Ambrose is managing the diabetes. Status: Chronic (4) Coagulopathy Assessment & Plan: Eliquis and ASA are on hold. Dr. Evita Shepard would like to restart the Eliquis tomorrow. Will check with surgeons on this. Status: Chronic (5) Peripheral arterial occlusive disease Status: Chronic (6) Anemia, blood loss Assessment & Plan: Will recheck H & H toight. Status: Acute
[2016-10-01] MEDS: Insulin Detemir 100 Units/ml Inj SC SCH (21:31)
[2016-10-01 22:06] LABS: HEMATOCRIT 29.8 % (34.0-47.0)
[2016-10-01 22:32] LABS: TROPONIN I 0.095 ng/mL (0.00-0.120)
[2016-10-02] MEDS: HYDROmorphone 0.5 mg/0.5 ml ISec IVP PRN ×4 (00:10→08:08)
[2016-10-02] MEDS: Meropenem 500 MG in Sodium Chloride 0.9% 100 ML IVPB SCH (00:46)
--- NOTE | 2016-10-02 01:53 | CP.PCM.PN ---
Subjective - Date & Time of Evaluation Date of Evaluation: 10/01/16 Time of Evaluation: 21:35 - Subjective Subjective: Patient had successfully her Right BKA by Vascular Surgery due to resistant Right LE peripheral bone infection and a f/o PVD. 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 No Seizures, on Topamax 50 mg Q12 hrs. Objective - Vital Signs/Intake and Output Vital Signs (last 24 hours): Temp Pulse Resp BP Pulse Ox 98.2 F 104 H 20 110/71 96 10/02/16 01:00 10/02/16 01:00 10/02/16 01:00 10/02/16 01:00 10/02/16 01:00 Intake and Output: 10/01/16 10/02/16 18:59 06:59 Intake Total 300 Balance 300 - Medications Medications: Current Medications Acetaminophen (Tylenol 325mg Tab) 650 mg PO Q4 PRN PRN Reason: Fever >100.4 F Last Admin: 09/27/16 15:51 Dose: 650 mg Acetaminophen (Tylenol 325mg Tab) 650 mg PO Q4 PRN PRN Reason: Pain, moderate (4-7) Last Admin: 09/16/16 22:34 Dose: 650 mg Albuterol Sulfate (Albuterol 0.083% Inhal Barbie (2.5 Mg/3 Ml) Ud) 2.5 mg INH RQ4 PRN PRN Reason: Shortness of Breath Albuterol/Ipratropium (Duoneb 3 Mg/0.5 Mg (3 Ml) Ud) 3 ml INH RQ4 PRN PRN Reason: Shortness of Breath Apixaban (Eliquis) 5 mg PO BID [facility] PRN Reason: Protocol Last Admin: 09/30/16 16:52 Dose: Not Given Aspirin (Ecotrin) 81 mg PO DAILY [facility] Last Admin: 09/30/16 09:29 Dose: Not Given Atorvastatin Calcium (Lipitor) 40 mg PO DAILY [facility] Last Admin: 10/01/16 09:00 Dose: 40 mg Benzonatate (Tessalon Perles) 200 mg PO TID PRN PRN Reason: Cough Last Admin: 09/29/16 08:52 Dose: 200 mg Cinacalcet (Sensipar) 30 mg PO DAILY [facility] Last Admin: 10/01/16 09:08 Dose: 30 mg Epoetin Tha (Procrit) 20,000 unit IV [facility] Last Admin: 09/30/16 16:53 Dose: 20,000 unit Ergocalciferol (Drisdol 50,000 Intl Units Cap) 1 cap PO Q7D [facility] Stop: 11/06/16 11:16 Last Admin: 09/25/16 13:24 Dose: 1 cap Fluconazole (Diflucan) 100 mg PO DAILY [facility] Last Admin: 10/01/16 09:03 Dose: 100 mg Hydrocortisone (Anusol-Hc) 1 applic [place] BID [facility] Last Admin: 10/01/16 09:03 Dose: 1 applic Hydromorphone HCl (Dilaudid) 2 mg PO Q4 PRN PRN Reason: Pain, moderate (4-7) Last Admin: 09/30/16 12:34 Dose: 2 mg Hydromorphone HCl (Dilaudid) 0.5 mg IVP Q4 PRN PRN Reason: Pain, severe (8-10) Hydromorphone HCl (Dilaudid) 1 mg IVP Q2H PRN PRN Reason: Pain, severe (8-10) Last Admin: 10/02/16 00:10 Dose: 1 mg Amikacin Sulfate 250 mg/ (Sodium Chloride) 101 mls @ 100.609 mls/hr IVPB [facility] Last Admin: 09/30/16 09:22 Dose: 100.609 mls/hr Linezolid (Zyvox 600mg/300ml D5w) 600 mg in 300 mls @ 300 mls/hr IVPB Q12@0400, 1600 [facility] Last Admin: 10/01/16 04:50 Dose: 300 mls/hr Meropenem 500 mg/ Sodium (Chloride) 100 mls @ 100 mls/hr IVPB DAILY@0100 [facility] Last Admin: 10/02/16 00:46 Dose: 100 mls/hr Piperacillin Sod/Tazobactam (Sod 2.25 gm/ Sodium Chloride) 100 mls @ 100 mls/ hr IVPB Q12@0600,1800 [facility] Last Admin: 10/01/16 06:05 Dose: 100 mls/hr Sodium Chloride (Sodium Chloride 0.9%) 1,000 mls @ 10 mls/hr IV .Q24H [facility] Dextrose/Sodium Chloride (Dextrose 5%-0.9% Ns 500 Ml) 500 mls @ 50 mls/hr IV .Q10H [facility] Stop: 10/02/16 20:53 Last Admin: 10/01/16 21:30 Dose: 50 mls/hr Insulin Detemir (Levemir) 30 units SC HS [facility] Last Admin: 10/01/16 21:31 Dose: 30 units Insulin Human Lispro (Humalog) 8 units SC AC [facility] Last Admin: 09/30/16 16:27 Dose: 8 units Insulin Human Regular (Humulin R) 0 units SC ACHS [facility] PRN Reason: Protocol Last Admin: 10/01/16 21:39 Dose: Not Given Lidocaine (Lidoderm) 1 ea TD DAILY [facility] Last Admin: 10/01/16 09:04 Dose: 1 ea Medroxyprogesterone Acetate (Provera) 10 mg PO DAILY [facility] Last Admin: 10/01/16 09:06 Dose: 10 mg Nystatin (Mycostatin Oint) 1 applic TOP TID [facility] Last Admin: 10/01/16 12:51 Dose: Not Given Ondansetron HCl (Zofran Inj) 4 mg IVP Q6 PRN PRN Reason: Nausea/Vomiting Last Admin: 09/19/16 10:26 Dose: 4 mg Pantoprazole Sodium (Protonix Ec Tab) 40 mg PO DAILY [facility] Last Admin: 10/01/16 09:05 Dose: 40 mg Sevelamer HCl (Renagel) 1,600 mg PO TID [facility] Last Admin: 10/01/16 12:50 Dose: Not Given Topiramate (Topamax) 50 mg PO BID [facility] Last Admin: 10/01/16 09:09 Dose: 50 mg Vitamin B Complex/Vit C/Folic Acid (Nephro-Ajay) 1 tab PO DAILY [facility] Last Admin: 10/01/16 09:05 Dose: 1 tab - Labs Labs: 10/01/16 21:35 10/01/16 21:35 PT 13.0 SECONDS (9.6-11.2) H 09/29/16 05:30 INR 1.25 (0.92-1.08) H 09/29/16 05:30 APTT 32.5 SECONDS (23.3-32.5) 09/29/16 05:30 Assessment and Plan (1) Diabetes Status: Chronic (2) ESRD (end stage renal disease) Status: Chronic (3) Cellulitis of leg Status: Acute (4) Hyperlipidemia Status: Chronic (5) Back pain Status: Acute (6) Bacteremia due to Gram-negative bacteria Status: Acute (7) Diabetes mellitus type 2 with peripheral artery disease Status: Acute (8) PVD (peripheral vascular disease) Status: Acute
[2016-10-02] MEDS: Linezolid 600 mg in D5W 300 ml 600 MG/300 ML BAG IVPB SCH ×3 (04:00→16:15)
[2016-10-02] MEDS: Insulin Lispro (humaLOG) 100 Units/ml Inj SC SCH ×3 (07:14→18:00)
--- NOTE | 2016-10-02 07:44 | CP.PCM.PN ---
Subjective - Date & Time of Evaluation Date of Evaluation: 10/02/16 Time of Evaluation: 07:41 - Subjective Subjective: Vascular Surgery Progress Note for Dr. Mccormack This 46F was seen and examined this morning at bedside. She reports no acute events overnight. He dressings were clean dry and intact. She denies any nausea , vomiting, chest pain, SOB. Objective - Vital Signs/Intake and Output Vital Signs (last 24 hours): Temp Pulse Resp BP Pulse Ox 97.4 F L 121 H 19 141/82 93 L 10/02/16 07:35 10/02/16 07:35 10/02/16 07:35 10/02/16 07:35 10/02/16 07:35 - Medications Medications: Current Medications Acetaminophen (Tylenol 325mg Tab) 650 mg PO Q4 PRN PRN Reason: Fever >100.4 F Last Admin: 09/27/16 15:51 Dose: 650 mg Acetaminophen (Tylenol 325mg Tab) 650 mg PO Q4 PRN PRN Reason: Pain, moderate (4-7) Last Admin: 09/16/16 22:34 Dose: 650 mg Albuterol Sulfate (Albuterol 0.083% Inhal Barbie (2.5 Mg/3 Ml) Ud) 2.5 mg INH RQ4 PRN PRN Reason: Shortness of Breath Albuterol/Ipratropium (Duoneb 3 Mg/0.5 Mg (3 Ml) Ud) 3 ml INH RQ4 PRN PRN Reason: Shortness of Breath Apixaban (Eliquis) 5 mg PO BID [facility] PRN Reason: Protocol Last Admin: 09/30/16 16:52 Dose: Not Given Aspirin (Ecotrin) 81 mg PO DAILY [facility] Last Admin: 09/30/16 09:29 Dose: Not Given Atorvastatin Calcium (Lipitor) 40 mg PO DAILY [facility] Last Admin: 10/01/16 09:00 Dose: 40 mg Benzonatate (Tessalon Perles) 200 mg PO TID PRN PRN Reason: Cough Last Admin: 09/29/16 08:52 Dose: 200 mg Cinacalcet (Sensipar) 30 mg PO DAILY [facility] Last Admin: 10/01/16 09:08 Dose: 30 mg Epoetin Tha (Procrit) 20,000 unit IV MWF [facility] Last Admin: 09/30/16 16:53 Dose: 20,000 unit Ergocalciferol (Drisdol 50,000 Intl Units Cap) 1 cap PO Q7D [facility] Stop: 11/06/16 11:16 Last Admin: 09/25/16 13:24 Dose: 1 cap Fluconazole (Diflucan) 100 mg PO DAILY [facility] Last Admin: 10/01/16 09:03 Dose: 100 mg Hydrocortisone (Anusol-Hc) 1 applic [place] BID [facility] Last Admin: 10/01/16 09:03 Dose: 1 applic Hydromorphone HCl (Dilaudid) 2 mg PO Q4 PRN PRN Reason: Pain, moderate (4-7) Last Admin: 09/30/16 12:34 Dose: 2 mg Hydromorphone HCl (Dilaudid) 0.5 mg IVP Q4 PRN PRN Reason: Pain, severe (8-10) Hydromorphone HCl (Dilaudid) 1 mg IVP Q2H PRN PRN Reason: Pain, severe (8-10) Last Admin: 10/02/16 05:52 Dose: 1 mg Amikacin Sulfate 250 mg/ (Sodium Chloride) 101 mls @ 100.609 mls/hr IVPB MWF [facility] Last Admin: 09/30/16 09:22 Dose: 100.609 mls/hr Linezolid (Zyvox 600mg/300ml D5w) 600 mg in 300 mls @ 300 mls/hr IVPB Q12@0400, 1600 [facility] Last Admin: 10/01/16 04:50 Dose: 300 mls/hr Meropenem 500 mg/ Sodium (Chloride) 100 mls @ 100 mls/hr IVPB DAILY@0100 [facility] Last Admin: 10/02/16 00:46 Dose: 100 mls/hr Piperacillin Sod/Tazobactam (Sod 2.25 gm/ Sodium Chloride) 100 mls @ 100 mls/ hr IVPB Q12@0600,1800 [facility] Last Admin: 10/01/16 06:05 Dose: 100 mls/hr Sodium Chloride (Sodium Chloride 0.9%) 1,000 mls @ 10 mls/hr IV .Q24H [facility] Dextrose/Sodium Chloride (Dextrose 5%-0.9% Ns 500 Ml) 500 mls @ 50 mls/hr IV .Q10H [facility] Stop: 10/02/16 20:53 Last Admin: 10/01/16 21:30 Dose: 50 mls/hr Insulin Detemir (Levemir) 30 units SC HS [facility] Last Admin: 10/01/16 21:31 Dose: 30 units Insulin Human Lispro (Humalog) 8 units SC AC [facility] Last Admin: 09/30/16 16:27 Dose: 8 units Insulin Human Regular (Humulin R) 0 units SC ACHS [facility] PRN Reason: Protocol Last Admin: 10/01/16 21:39 Dose: Not Given Lidocaine (Lidoderm) 1 ea TD DAILY [facility] Last Admin: 10/01/16 09:04 Dose: 1 ea Medroxyprogesterone Acetate (Provera) 10 mg PO DAILY [facility] Last Admin: 10/01/16 09:06 Dose: 10 mg Nystatin (Mycostatin Oint) 1 applic TOP TID [facility] Last Admin: 10/01/16 12:51 Dose: Not Given Ondansetron HCl (Zofran Inj) 4 mg IVP Q6 PRN PRN Reason: Nausea/Vomiting Last Admin: 09/19/16 10:26 Dose: 4 mg Pantoprazole Sodium (Protonix Ec Tab) 40 mg PO DAILY [facility] Last Admin: 10/01/16 09:05 Dose: 40 mg Sevelamer HCl (Renagel) 1,600 mg PO TID [facility] Last Admin: 10/01/16 12:50 Dose: Not Given Topiramate (Topamax) 50 mg PO BID [facility] Last Admin: 10/01/16 09:09 Dose: 50 mg Vitamin B Complex/Vit C/Folic Acid (Nephro-Ajay) 1 tab PO DAILY [facility] Last Admin: 10/01/16 09:05 Dose: 1 tab - Labs Labs: 10/01/16 21:35 10/01/16 21:35 PT 13.0 SECONDS (9.6-11.2) H 09/29/16 05:30 INR 1.25 (0.92-1.08) H 09/29/16 05:30 APTT 32.5 SECONDS (23.3-32.5) 09/29/16 05:30 - Constitutional Appears: Non-toxic, No Acute Distress - Head Exam Head Exam: ATRAUMATIC, NORMOCEPHALIC - Eye Exam Eye Exam: EOMI, Normal appearance - ENT Exam ENT Exam: Mucous Membranes Moist - Respiratory Exam Respiratory Exam: NORMAL BREATHING PATTERN - Cardiovascular Exam Cardiovascular Exam: REGULAR RHYTHM - Extremities Exam Additional comments: Dressing clean dry and intact. 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 Keep dressing on for 2 more days Keep knee imobilizer in place Continue pain control Continue medical managment per primary team Recommend hold eloquis for 2 more days Will Discuss with Dr. Easton Fung PGY-4
[2016-10-02] MEDS: Insulin Regular 100 units/ml SC SCH ×4 (08:17→22:25)
--- NOTE | 2016-10-02 08:23 | CP.PCM.PN ---
Subjective - Date & Time of Evaluation Date of Evaluation: 10/02/16 Time of Evaluation: 08:22 - Subjective Subjective: 46 year old female was seen at bedside 1 day s/p right BKA. She denies any acute events overnight. Patient states she feels ok today. Denies n/v/f/c/sob/ cp. Objective - Vital Signs/Intake and Output Vital Signs (last 24 hours): Temp Pulse Resp BP Pulse Ox 97.4 F L 121 H 19 141/82 93 L 10/02/16 07:35 10/02/16 07:35 10/02/16 07:35 10/02/16 07:35 10/02/16 07:35 - Medications Medications: Current Medications Acetaminophen (Tylenol 325mg Tab) 650 mg PO Q4 PRN PRN Reason: Fever >100.4 F Last Admin: 09/27/16 15:51 Dose: 650 mg Acetaminophen (Tylenol 325mg Tab) 650 mg PO Q4 PRN PRN Reason: Pain, moderate (4-7) Last Admin: 09/16/16 22:34 Dose: 650 mg Albuterol Sulfate (Albuterol 0.083% Inhal Barbie (2.5 Mg/3 Ml) Ud) 2.5 mg INH RQ4 PRN PRN Reason: Shortness of Breath Albuterol/Ipratropium (Duoneb 3 Mg/0.5 Mg (3 Ml) Ud) 3 ml INH RQ4 PRN PRN Reason: Shortness of Breath Apixaban (Eliquis) 5 mg PO BID [facility] [place] PRN Reason: Protocol Last Admin: 09/30/16 16:52 Dose: Not Given Aspirin (Ecotrin) 81 mg PO DAILY [facility] [place] Last Admin: 09/30/16 09:29 Dose: Not Given Atorvastatin Calcium (Lipitor) 40 mg PO DAILY [facility] [place] Last Admin: 10/01/16 09:00 Dose: 40 mg Benzonatate (Tessalon Perles) 200 mg PO TID PRN PRN Reason: Cough Last Admin: 09/29/16 08:52 Dose: 200 mg Cinacalcet (Sensipar) 30 mg PO DAILY [facility] [place] Last Admin: 10/01/16 09:08 Dose: 30 mg Epoetin Tha (Procrit) 20,000 unit IV MWF [facility] [place] Last Admin: 09/30/16 16:53 Dose: 20,000 unit Ergocalciferol (Drisdol 50,000 Intl Units Cap) 1 cap PO Q7D [facility] [place] Stop: 11/06/16 11:16 Last Admin: 09/25/16 13:24 Dose: 1 cap Fluconazole (Diflucan) 100 mg PO DAILY [facility] [place] Last Admin: 10/01/16 09:03 Dose: 100 mg Hydrocortisone (Anusol-Hc) 1 applic ND BID [facility] [place] Last Admin: 10/01/16 09:03 Dose: 1 applic Hydromorphone HCl (Dilaudid) 2 mg PO Q4 PRN PRN Reason: Pain, moderate (4-7) Last Admin: 09/30/16 12:34 Dose: 2 mg Hydromorphone HCl (Dilaudid) 0.5 mg IVP Q4 PRN PRN Reason: Pain, severe (8-10) Hydromorphone HCl (Dilaudid) 1 mg IVP Q2H PRN PRN Reason: Pain, severe (8-10) Last Admin: 10/02/16 08:08 Dose: 1 mg Amikacin Sulfate 250 mg/ (Sodium Chloride) 101 mls @ 100.609 mls/hr IVPB MWF [facility] [place] Last Admin: 09/30/16 09:22 Dose: 100.609 mls/hr Linezolid (Zyvox 600mg/300ml D5w) 600 mg in 300 mls @ 300 mls/hr IVPB Q12@0400, 1600 [facility] [place] Last Admin: 10/01/16 04:50 Dose: 300 mls/hr Meropenem 500 mg/ Sodium (Chloride) 100 mls @ 100 mls/hr IVPB DAILY@0100 [facility] [place] Last Admin: 10/02/16 00:46 Dose: 100 mls/hr Piperacillin Sod/Tazobactam (Sod 2.25 gm/ Sodium Chloride) 100 mls @ 100 mls/ hr IVPB Q12@0600,1800 [facility] [place] Last Admin: 10/01/16 06:05 Dose: 100 mls/hr Sodium Chloride (Sodium Chloride 0.9%) 1,000 mls @ 10 mls/hr IV .Q24H [facility] [place] Dextrose/Sodium Chloride (Dextrose 5%-0.9% Ns 500 Ml) 500 mls @ 50 mls/hr IV .Q10H [facility] [place] Stop: 10/02/16 20:53 Last Admin: 10/01/16 21:30 Dose: 50 mls/hr Insulin Detemir (Levemir) 30 units SC HS [facility] [place] Last Admin: 10/01/16 21:31 Dose: 30 units Insulin Human Lispro (Humalog) 8 units SC AC [facility] [place] Last Admin: 09/30/16 16:27 Dose: 8 units Insulin Human Regular (Humulin R) 0 units SC ACHS [facility] [place] PRN Reason: Protocol Last Admin: 10/02/16 08:17 Dose: Not Given Lidocaine (Lidoderm) 1 ea TD DAILY [facility] [place] Last Admin: 10/01/16 09:04 Dose: 1 ea Medroxyprogesterone Acetate (Provera) 10 mg PO DAILY [facility] [place] Last Admin: 10/01/16 09:06 Dose: 10 mg Nystatin (Mycostatin Oint) 1 applic TOP TID [facility] [place] Last Admin: 10/01/16 12:51 Dose: Not Given Ondansetron HCl (Zofran Inj) 4 mg IVP Q6 PRN PRN Reason: Nausea/Vomiting Last Admin: 09/19/16 10:26 Dose: 4 mg Pantoprazole Sodium (Protonix Ec Tab) 40 mg PO DAILY [facility] [place] Last Admin: 10/01/16 09:05 Dose: 40 mg Sevelamer HCl (Renagel) 1,600 mg PO TID [facility] [place] Last Admin: 10/01/16 12:50 Dose: Not Given Topiramate (Topamax) 50 mg PO BID [facility] [place] Last Admin: 10/01/16 09:09 Dose: 50 mg Vitamin B Complex/Vit C/Folic Acid (Nephro-Ajay) 1 tab PO DAILY [facility] [place] Last Admin: 10/01/16 09:05 Dose: 1 tab - Labs Labs: 10/01/16 21:35 10/01/16 21:35 PT 13.0 SECONDS (9.6-11.2) H 09/29/16 05:30 INR 1.25 (0.92-1.08) H 09/29/16 05:30 APTT 32.5 SECONDS (23.3-32.5) 09/29/16 05:30 - Constitutional Appears: Non-toxic, No Acute Distress - Extremities Exam Additional comments: BKA to RLE - Neurological Exam Neurological Exam: Alert, Awake - Psychiatric Exam Psychiatric exam: Normal Affect, Normal Mood Assessment and Plan - Assessment and Plan (Free Text) Assessment: 46 year old female 1 day s/p Right BKA Plan: patient seen and evaluated discussed with attending Dr. Resendez chart, labs, vitals reviewed thank you for allowing us to participate in the care for this patient please re-consult if necessary
[2016-10-02] MEDS: Epoetin Alfa 20000 UNIT/ML Inj IV SCH (09:12)
[2016-10-02] MEDS: Nystatin Ointment TOP SCH ×3 (09:13→16:18)
[2016-10-02 09:16] LABS: BASO # 0.1 K/uL (0.0-0.2); BASO % 0.5 % (0.0-2.0); EOS # 0.4 K/uL (0.0-0.7); EOS % 3.1 % (0.0-4.0); HEMATOCRIT 29.2 % (34.0-47.0); LYMPH # 1.1 K/uL (1.0-4.3); LYMPH % 7.6 % (20.0-40.0); MEAN CELL VOLUME 88.9 fl (81.0-99.0); MEAN CORPUSCULAR HGB CONC 32.6 g/dL (33.0-37.0); MEAN PLATELET VOLUME 8.5 fl (7.2-11.7); MONO % 6.9 % (0.0-10.0); NEUT # 11.3 K/uL (1.8-7.0); NEUT % 81.9 % (50.0-75.0); PLATELET COUNT 233 K/uL (130-400); RED CELL DISTRIBUTION WIDTH 17.5 % (11.5-14.5); WHITE BLOOD COUNT 13.8 K/uL (4.8-10.8)
[2016-10-02 09:32] LABS: ALB/GLOB RATIO 0.7 (1.0-2.1); BILIRUBIN,TOTAL 0.5 mg/dl (0.2-1.3); CALCIUM 8.7 mg/dL (8.4-10.2); POTASSIUM 3.8 MMOL/L (3.6-5.0); TOTAL PROTEIN 8.1 G/DL (6.3-8.2)
--- NOTE | 2016-10-02 09:57 | CP.PCM.PN ---
Subjective - Date & Time of Evaluation Date of Evaluation: 10/02/16 Time of Evaluation: 09:54 - Subjective Subjective: Pt is feeling a little sore today, but her surgery went off well. She had a BKA with no excessive bleeding She will vbe started on ASA today and the eliquis tomorrow. Objective - Vital Signs/Intake and Output Vital Signs (last 24 hours): Temp Pulse Resp BP Pulse Ox 97.4 F L 121 H 19 141/82 93 L 10/02/16 07:35 10/02/16 07:35 10/02/16 07:35 10/02/16 07:35 10/02/16 07:35 - Medications Medications: Current Medications Acetaminophen (Tylenol 325mg Tab) 650 mg PO Q4 PRN PRN Reason: Fever >100.4 F Last Admin: 09/27/16 15:51 Dose: 650 mg Acetaminophen (Tylenol 325mg Tab) 650 mg PO Q4 PRN PRN Reason: Pain, moderate (4-7) Last Admin: 09/16/16 22:34 Dose: 650 mg Albuterol Sulfate (Albuterol 0.083% Inhal Barbie (2.5 Mg/3 Ml) Ud) 2.5 mg INH RQ4 PRN PRN Reason: Shortness of Breath Albuterol/Ipratropium (Duoneb 3 Mg/0.5 Mg (3 Ml) Ud) 3 ml INH RQ4 PRN PRN Reason: Shortness of Breath Apixaban (Eliquis) 5 mg PO BID [facility] PRN Reason: Protocol Last Admin: 09/30/16 16:52 Dose: Not Given Aspirin (Ecotrin) 81 mg PO DAILY [facility] Last Admin: 09/30/16 09:29 Dose: Not Given Atorvastatin Calcium (Lipitor) 40 mg PO DAILY [facility] Last Admin: 10/01/16 09:00 Dose: 40 mg Benzonatate (Tessalon Perles) 200 mg PO TID PRN PRN Reason: Cough Last Admin: 09/29/16 08:52 Dose: 200 mg Cinacalcet (Sensipar) 30 mg PO DAILY [facility] Last Admin: 10/01/16 09:08 Dose: 30 mg Epoetin Tha (Procrit) 20,000 unit IV MWF [facility] Last Admin: 09/30/16 16:53 Dose: 20,000 unit Ergocalciferol (Drisdol 50,000 Intl Units Cap) 1 cap PO Q7D [facility] Stop: 11/06/16 11:16 Last Admin: 09/25/16 13:24 Dose: 1 cap Fluconazole (Diflucan) 100 mg PO DAILY [facility] Last Admin: 10/01/16 09:03 Dose: 100 mg Hydrocortisone (Anusol-Hc) 1 applic [place] BID [facility] Last Admin: 10/01/16 09:03 Dose: 1 applic Hydromorphone HCl (Dilaudid) 2 mg PO Q4 PRN PRN Reason: Pain, moderate (4-7) Last Admin: 09/30/16 12:34 Dose: 2 mg Hydromorphone HCl (Dilaudid) 0.5 mg IVP Q4 PRN PRN Reason: Pain, severe (8-10) Hydromorphone HCl (Dilaudid) 2 mg IVP Q2H PRN PRN Reason: Pain, severe (8-10) Amikacin Sulfate 250 mg/ (Sodium Chloride) 101 mls @ 100.609 mls/hr IVPB MWF [facility] Last Admin: 09/30/16 09:22 Dose: 100.609 mls/hr Linezolid (Zyvox 600mg/300ml D5w) 600 mg in 300 mls @ 300 mls/hr IVPB Q12@0400, 1600 [facility] Last Admin: 10/01/16 04:50 Dose: 300 mls/hr Meropenem 500 mg/ Sodium (Chloride) 100 mls @ 100 mls/hr IVPB DAILY@0100 [facility] Last Admin: 10/02/16 00:46 Dose: 100 mls/hr Piperacillin Sod/Tazobactam (Sod 2.25 gm/ Sodium Chloride) 100 mls @ 100 mls/ hr IVPB Q12@0600,1800 [facility] Last Admin: 10/01/16 06:05 Dose: 100 mls/hr Sodium Chloride (Sodium Chloride 0.9%) 1,000 mls @ 10 mls/hr IV .Q24H [facility] Dextrose/Sodium Chloride (Dextrose 5%-0.9% Ns 500 Ml) 500 mls @ 50 mls/hr IV .Q10H [facility] Stop: 10/02/16 20:53 Last Admin: 10/01/16 21:30 Dose: 50 mls/hr Insulin Detemir (Levemir) 30 units SC HS [facility] Last Admin: 10/01/16 21:31 Dose: 30 units Insulin Human Lispro (Humalog) 8 units SC AC [facility] Last Admin: 09/30/16 16:27 Dose: 8 units Insulin Human Regular (Humulin R) 0 units SC ACHS [facility] PRN Reason: Protocol Last Admin: 10/02/16 08:17 Dose: Not Given Lidocaine (Lidoderm) 1 ea TD DAILY [facility] Last Admin: 10/01/16 09:04 Dose: 1 ea Medroxyprogesterone Acetate (Provera) 10 mg PO DAILY [facility] Last Admin: 10/01/16 09:06 Dose: 10 mg Nystatin (Mycostatin Oint) 1 applic TOP TID [facility] Last Admin: 10/01/16 12:51 Dose: Not Given Ondansetron HCl (Zofran Inj) 4 mg IVP Q6 PRN PRN Reason: Nausea/Vomiting Last Admin: 09/19/16 10:26 Dose: 4 mg Pantoprazole Sodium (Protonix Ec Tab) 40 mg PO DAILY [facility] Last Admin: 10/01/16 09:05 Dose: 40 mg Sevelamer HCl (Renagel) 1,600 mg PO TID [facility] Last Admin: 10/01/16 12:50 Dose: Not Given Topiramate (Topamax) 50 mg PO BID [facility] Last Admin: 10/01/16 09:09 Dose: 50 mg Vitamin B Complex/Vit C/Folic Acid (Nephro-Ajay) 1 tab PO DAILY [facility] Last Admin: 10/01/16 09:05 Dose: 1 tab - Labs Labs: 10/02/16 09:00 10/02/16 09:00 PT 13.0 SECONDS (9.6-11.2) H 09/29/16 05:30 INR 1.25 (0.92-1.08) H 09/29/16 05:30 APTT 32.5 SECONDS (23.3-32.5) 09/29/16 05:30
--- NOTE | 2016-10-02 10:16 | CP.PCM.PN ---
Subjective - Date & Time of Evaluation Date of Evaluation: 10/02/16 Time of Evaluation: 10:12 - Subjective Subjective: She was seen on hemodialysis Patient is awake and conscious Receiving pain medication intravenously Ultrafiltration goal 3 kg Potassium 2 mEq Chest clear Heart no rubs Abdomen soft Impression and plan Status post amputation of the right leg Anemia appears to be stable at the present End stage renal disease receiving dialysis Friday Continue monitoring Objective - Vital Signs/Intake and Output Vital Signs (last 24 hours): Temp Pulse Resp BP Pulse Ox 97.4 F L 121 H 19 141/82 93 L 10/02/16 07:35 10/02/16 07:35 10/02/16 07:35 10/02/16 07:35 10/02/16 07:35 - Medications Medications: Current Medications Acetaminophen (Tylenol 325mg Tab) 650 mg PO Q4 PRN PRN Reason: Fever >100.4 F Last Admin: 09/27/16 15:51 Dose: 650 mg Acetaminophen (Tylenol 325mg Tab) 650 mg PO Q4 PRN PRN Reason: Pain, moderate (4-7) Last Admin: 09/16/16 22:34 Dose: 650 mg Albuterol Sulfate (Albuterol 0.083% Inhal Barbie (2.5 Mg/3 Ml) Ud) 2.5 mg INH RQ4 PRN PRN Reason: Shortness of Breath Albuterol/Ipratropium (Duoneb 3 Mg/0.5 Mg (3 Ml) Ud) 3 ml INH RQ4 PRN PRN Reason: Shortness of Breath Apixaban (Eliquis) 5 mg PO BID [facility] PRN Reason: Protocol Last Admin: 09/30/16 16:52 Dose: Not Given Aspirin (Ecotrin) 81 mg PO DAILY [facility] Last Admin: 09/30/16 09:29 Dose: Not Given Atorvastatin Calcium (Lipitor) 40 mg PO DAILY [facility] Last Admin: 10/01/16 09:00 Dose: 40 mg Benzonatate (Tessalon Perles) 200 mg PO TID PRN PRN Reason: Cough Last Admin: 09/29/16 08:52 Dose: 200 mg Cinacalcet (Sensipar) 30 mg PO DAILY [facility] Last Admin: 10/01/16 09:08 Dose: 30 mg Epoetin Tha (Procrit) 20,000 unit IV MWF [facility] Last Admin: 09/30/16 16:53 Dose: 20,000 unit Ergocalciferol (Drisdol 50,000 Intl Units Cap) 1 cap PO Q7D [facility] Stop: 11/06/16 11:16 Last Admin: 09/25/16 13:24 Dose: 1 cap Fluconazole (Diflucan) 100 mg PO DAILY [facility] Last Admin: 10/01/16 09:03 Dose: 100 mg Hydrocortisone (Anusol-Hc) 1 applic ND BID [facility] Last Admin: 10/01/16 09:03 Dose: 1 applic Hydromorphone HCl (Dilaudid) 2 mg PO Q4 PRN PRN Reason: Pain, moderate (4-7) Last Admin: 09/30/16 12:34 Dose: 2 mg Hydromorphone HCl (Dilaudid) 0.5 mg IVP Q4 PRN PRN Reason: Pain, severe (8-10) Hydromorphone HCl (Dilaudid) 2 mg IVP Q2H PRN PRN Reason: Pain, severe (8-10) Amikacin Sulfate 250 mg/ (Sodium Chloride) 101 mls @ 100.609 mls/hr IVPB [facility] Last Admin: 09/30/16 09:22 Dose: 100.609 mls/hr Linezolid (Zyvox 600mg/300ml D5w) 600 mg in 300 mls @ 300 mls/hr IVPB Q12@0400, 1600 [facility] Last Admin: 10/01/16 04:50 Dose: 300 mls/hr Meropenem 500 mg/ Sodium (Chloride) 100 mls @ 100 mls/hr IVPB DAILY@0100 [facility] Last Admin: 10/02/16 00:46 Dose: 100 mls/hr Piperacillin Sod/Tazobactam (Sod 2.25 gm/ Sodium Chloride) 100 mls @ 100 mls/ hr IVPB Q12@0600,1800 [facility] Last Admin: 10/01/16 06:05 Dose: 100 mls/hr Sodium Chloride (Sodium Chloride 0.9%) 1,000 mls @ 10 mls/hr IV .Q24H [facility] Dextrose/Sodium Chloride (Dextrose 5%-0.9% Ns 500 Ml) 500 mls @ 50 mls/hr IV .Q10H [facility] Stop: 10/02/16 20:53 Last Admin: 10/01/16 21:30 Dose: 50 mls/hr Insulin Detemir (Levemir) 30 units SC HS [facility] Last Admin: 10/01/16 21:31 Dose: 30 units Insulin Human Lispro (Humalog) 8 units SC AC [facility] Last Admin: 09/30/16 16:27 Dose: 8 units Insulin Human Regular (Humulin R) 0 units SC ACHS [facility] PRN Reason: Protocol Last Admin: 10/02/16 08:17 Dose: Not Given Lidocaine (Lidoderm) 1 ea TD DAILY [facility] Last Admin: 10/01/16 09:04 Dose: 1 ea Medroxyprogesterone Acetate (Provera) 10 mg PO DAILY [facility] Last Admin: 10/01/16 09:06 Dose: 10 mg Nystatin (Mycostatin Oint) 1 applic TOP TID [facility] Last Admin: 10/01/16 12:51 Dose: Not Given Ondansetron HCl (Zofran Inj) 4 mg IVP Q6 PRN PRN Reason: Nausea/Vomiting Last Admin: 09/19/16 10:26 Dose: 4 mg Pantoprazole Sodium (Protonix Ec Tab) 40 mg PO DAILY [facility] Last Admin: 10/01/16 09:05 Dose: 40 mg Sevelamer HCl (Renagel) 1,600 mg PO TID [facility] Last Admin: 10/01/16 12:50 Dose: Not Given Topiramate (Topamax) 50 mg PO BID [facility] Last Admin: 10/01/16 09:09 Dose: 50 mg Vitamin B Complex/Vit C/Folic Acid (Nephro-Ajay) 1 tab PO DAILY [facility] Last Admin: 10/01/16 09:05 Dose: 1 tab - Labs Labs: 10/02/16 09:00 10/02/16 09:00 PT 13.0 SECONDS (9.6-11.2) H 09/29/16 05:30 INR 1.25 (0.92-1.08) H 09/29/16 05:30 APTT 32.5 SECONDS (23.3-32.5) 09/29/16 05:30 - Constitutional Appears: No Acute Distress - ENT Exam ENT Exam: Mucous Membranes Moist - Respiratory Exam Respiratory Exam: absent: Chest Wall Tenderness - Cardiovascular Exam Cardiovascular Exam: absent: Rubs - GI/Abdominal Exam GI & Abdominal Exam: Soft - Extremities Exam Extremities Exam: absent: Calf Tenderness - Back Exam Back Exam: absent: CVA tenderness (L), CVA tenderness (R) Assessment and Plan (1) ESRD (end stage renal disease) Status: Chronic (2) Cellulitis of leg Status: Acute
[2016-10-02 11:07] LABS: BASOPHIL 1 % (0-2); EOSINOPHIL 5 % (0-7); NEUTROPHIL 83 % (42-75); TOTAL CELLS COUNTED 100
[2016-10-02 11:20] LABS: HEMOGLOBIN F <1.0 Percent (<2.0)
--- NOTE | 2016-10-02 12:35 | CP.PCM.PN ---
Subjective - Date & Time of Evaluation Date of Evaluation: 10/02/16 Time of Evaluation: 12:21 - Subjective Subjective: No acute events overnight. No immediate complaints at present. Pain control is improved. Patient appears comfortable in bed while being dialyzed. She is in no distress, fully alert and appropriate. Vital signs are stable. Sinus tachycardia appears improved since this morning. Review of systems is overall benign. There is no chest pain of shortness of breath. Physical exam is at the baseline. Right lower extremity is warm with stump dressing clean and dry. Hemoglobin and hematocrit are stable. WBC elevation after operation is not unusual -- will observe for now. A/P: overall, patient is doing quite well on post-operative day 1 status post right below knee amputation. Resume pre-operative diet and encourage PO. Pain control. Resume anticoagulation tomorrow as long as patient is hemodynamically stable with dry dressing. Place knee immobilizer to the right leg. Appreciate medical team post-op management of this complicated patient. Objective - Vital Signs/Intake and Output Vital Signs (last 24 hours): Temp Pulse Resp BP Pulse Ox 97.4 F L 121 H 19 141/82 93 L 10/02/16 07:35 10/02/16 07:35 10/02/16 07:35 10/02/16 07:35 10/02/16 07:35 - Medications Medications: Current Medications Acetaminophen (Tylenol 325mg Tab) 650 mg PO Q4 PRN PRN Reason: Fever >100.4 F Last Admin: 09/27/16 15:51 Dose: 650 mg Acetaminophen (Tylenol 325mg Tab) 650 mg PO Q4 PRN PRN Reason: Pain, moderate (4-7) Last Admin: 09/16/16 22:34 Dose: 650 mg Albuterol Sulfate (Albuterol 0.083% Inhal Barbie (2.5 Mg/3 Ml) Ud) 2.5 mg INH RQ4 PRN PRN Reason: Shortness of Breath Albuterol/Ipratropium (Duoneb 3 Mg/0.5 Mg (3 Ml) Ud) 3 ml INH RQ4 PRN PRN Reason: Shortness of Breath Apixaban (Eliquis) 5 mg PO BID [facility] PRN Reason: Protocol Last Admin: 09/30/16 16:52 Dose: Not Given Aspirin (Ecotrin) 81 mg PO DAILY [facility] Last Admin: 09/30/16 09:29 Dose: Not Given Atorvastatin Calcium (Lipitor) 40 mg PO DAILY [facility] Last Admin: 10/01/16 09:00 Dose: 40 mg Benzonatate (Tessalon Perles) 200 mg PO TID PRN PRN Reason: Cough Last Admin: 09/29/16 08:52 Dose: 200 mg Cinacalcet (Sensipar) 30 mg PO DAILY [facility] Last Admin: 10/01/16 09:08 Dose: 30 mg Epoetin Tha (Procrit) 20,000 unit IV [facility] [place] Last Admin: 09/30/16 16:53 Dose: 20,000 unit Ergocalciferol (Drisdol 50,000 Intl Units Cap) 1 cap PO Q7D [facility] Stop: 11/06/16 11:16 Last Admin: 09/25/16 13:24 Dose: 1 cap Fluconazole (Diflucan) 100 mg PO DAILY [facility] Last Admin: 10/01/16 09:03 Dose: 100 mg Hydrocortisone (Anusol-Hc) 1 applic [place] BID [facility] Last Admin: 10/01/16 09:03 Dose: 1 applic Hydromorphone HCl (Dilaudid) 2 mg PO Q4 PRN PRN Reason: Pain, moderate (4-7) Last Admin: 09/30/16 12:34 Dose: 2 mg Hydromorphone HCl (Dilaudid) 0.5 mg IVP Q4 PRN PRN Reason: Pain, severe (8-10) Hydromorphone HCl (Dilaudid) 2 mg IVP Q2H PRN PRN Reason: Pain, severe (8-10) Last Admin: 10/02/16 10:15 Dose: 2 mg Amikacin Sulfate 250 mg/ (Sodium Chloride) 101 mls @ 100.609 mls/hr IVPB MWF [facility] Last Admin: 09/30/16 09:22 Dose: 100.609 mls/hr Linezolid (Zyvox 600mg/300ml D5w) 600 mg in 300 mls @ 300 mls/hr IVPB Q12@0400, 1600 [facility] Last Admin: 10/01/16 04:50 Dose: 300 mls/hr Meropenem 500 mg/ Sodium (Chloride) 100 mls @ 100 mls/hr IVPB DAILY@0100 [facility] Last Admin: 10/02/16 00:46 Dose: 100 mls/hr Piperacillin Sod/Tazobactam (Sod 2.25 gm/ Sodium Chloride) 100 mls @ 100 mls/ hr IVPB Q12@0600,1800 [facility] Last Admin: 10/01/16 06:05 Dose: 100 mls/hr Sodium Chloride (Sodium Chloride 0.9%) 1,000 mls @ 10 mls/hr IV .Q24H [facility] Dextrose/Sodium Chloride (Dextrose 5%-0.9% Ns 500 Ml) 500 mls @ 50 mls/hr IV .Q10H [facility] Stop: 10/02/16 20:53 Last Admin: 10/01/16 21:30 Dose: 50 mls/hr Insulin Detemir (Levemir) 30 units SC HS [facility] Last Admin: 10/01/16 21:31 Dose: 30 units Insulin Human Lispro (Humalog) 8 units SC AC [facility] Last Admin: 09/30/16 16:27 Dose: 8 units Insulin Human Regular (Humulin R) 0 units SC ACHS [facility] PRN Reason: Protocol Last Admin: 10/02/16 08:17 Dose: Not Given Lidocaine (Lidoderm) 1 ea TD DAILY [facility] Last Admin: 10/01/16 09:04 Dose: 1 ea Medroxyprogesterone Acetate (Provera) 10 mg PO DAILY [facility] Last Admin: 10/01/16 09:06 Dose: 10 mg Nystatin (Mycostatin Oint) 1 applic TOP TID [facility] Last Admin: 10/01/16 12:51 Dose: Not Given Ondansetron HCl (Zofran Inj) 4 mg IVP Q6 PRN PRN Reason: Nausea/Vomiting Last Admin: 09/19/16 10:26 Dose: 4 mg Pantoprazole Sodium (Protonix Ec Tab) 40 mg PO DAILY [facility] Last Admin: 10/01/16 09:05 Dose: 40 mg Sevelamer HCl (Renagel) 1,600 mg PO TID [facility] Last Admin: 10/01/16 12:50 Dose: Not Given Topiramate (Topamax) 50 mg PO BID [facility] Last Admin: 10/01/16 09:09 Dose: 50 mg Vitamin B Complex/Vit C/Folic Acid (Nephro-Ajay) 1 tab PO DAILY [facility] Last Admin: 10/01/16 09:05 Dose: 1 tab - Labs Labs: 10/02/16 09:00 10/02/16 09:00 PT 13.0 SECONDS (9.6-11.2) H 09/29/16 05:30 INR 1.25 (0.92-1.08) H 09/29/16 05:30 APTT 32.5 SECONDS (23.3-32.5) 09/29/16 05:30
[2016-10-02] MEDS: Multivitamin Vitamin B Complex (Nephro-Vite) Tab PO SCH (14:05)
[2016-10-02] MEDS: Ergocalciferol 50,000 Intl Units Cap PO SCH (14:06)
[2016-10-02] MEDS: Hydrocortisone 2.5% (Rectal) CREAM PR SCH ×2 (14:11→16:19)
[2016-10-02] MEDS: Pantoprazole 40 mg EC Tab PO SCH (14:12)
[2016-10-02] MEDS: Lidocaine 5% Patch TD SCH (14:25)
--- NOTE | 2016-10-02 14:29 | OP ---
PROCEDURE DATE: 10/01/2016 SURGEON: Raffy Mccormack MD SALES AND DISTRIBUTION CLERK: Skyler Doran MD PREOPERATIVE DIAGNOSES: Right lower extremity Charcot joint with osteomyelitis and overall dysfuncti onal, nonsalvageable lower extremity. POSTOPERATIVE DIAGNOSIS: Right lower extremity Charcot joint with osteomyelitis and overall dysfunct ional, nonsalvageable lower extremity. PROCEDURE: Right below knee amputation. ANESTHESIA: General. INDICATIONS: The patient is a 46-year-old woman with long and complicated medical history and severe medical comorbidities including end-stage renal disease, on hemodialysis; diabetes, protein C and S deficiency, and history of left lower extremity amputations as well as finger amputations in the past . The patient was admitted to the hospital 5 weeks ago with signs of systemic infection. She spent a significant amount of time in the ICU on multiple antibiotics and positive blood cultures. She has a longstanding history of Charcot joint and significant musculoskeletal compromise of her right lowe r extremity. She has nonhealing ulcer involving her right heel. The patient was noted to have destr oyed right ankle with essentially free floating foot which could not bear weight. There was strong c linical suspicion that the patient's systemic signs of infection originates in her right joint which shows signs of osteomyelitis. A group of medical accountant involved in patient's care came to co nsensus that right lower extremity is likely source of infection and importantly it is dysfunctional and cannot bear weight. There is also evidence of peripheral arterial disease adding aspect of vascu lar compromise to the overall picture. The patient was evaluated preoperatively by the vascular surg ical team and our recommendation was to proceed with right lower extremity amputation. Risks and jorge alberto efits of right lower extremity amputation were explained to the patient in detail. I specifically me ntioned the risk of infection and wound healing problems, especially given the fact that the patient has nonhealing heel ulcer and requires multiple antibiotics for infection control. I mentioned the p ossibility of additional procedures and conversion to above knee amputation. I emphasized the risk o f a heart attack, stroke or perioperative . With risks and benefits of the operation described to the patient and understood by her, she made the decision to proceed with surgery and signed inform ed consent. DESCRIPTION OF PROCEDURE: The patient was brought to the operating room and placed on the table. Ge neral anesthesia was applied without complications. Right lower extremity was prepped and draped in sterile fashion. Tegaderm was used to cover right heel ulcer and right foot above the ankle was wrap ped in several layers of protective tissue and Coban for infection control. The skin was marked appr oximately 10 cm below the tibial tuberosity on the anterior aspect of the right lower extremity and s ufficient length of the posterior flap was ensured. Skin incision was made to the level of fascia. Fascia was incised sharply. We started with division of muscles in the anterior and lateral compartm ents of the right lower extremity. Neurovascular bundle containing right anterior tibial artery was identified and divided between sutures. Anterior and lateral surfaces of the tibia were exposed. Pe riosteal elevator was used to free the tibia from musculoskeletal attachments. Next, the muscles kenneth und right fibula were divided using electrocautery. Of note, muscles appeared to be edematous and pa le, although not frankly ischemic. With right fibula dissected circumferentially, we carried dissect ion distally and developed posterior flap. Next, electrical oscillating saw was used to sever right tibia at the level of skin incision. Bone wax was applied to the cut surface of the bone for hemosta sis. Next, a bone cutter was used to sever right fibula approximately 2 cm proximal to the level of the skin incision. Muscles of posterior compartments were divided sharply with the knife and specime n was taken off the field. Hemostasis was reinforced with stick ties. Posterior flap was quite bulk y and soft tissues and muscles were removed to thin out posterior flap. It reached the line of anter ior incision without tension. Once again, hemostasis was enforced and we started with completion of the operation. Muscle of posterior and anterior compartment were approximated over the cut surface o f the tibia with interrupted Vicryl stitches. Next, fascia was sutured with multiple interrupted 2-0 Vicryl stitches. The stump was irrigated and interrupted 2-0 Vicryl stitches were used to close sub cutaneous space. Skin was closed with sonia and sterile dressing was applied. The patient was ext ubated in the operating room and transferred to postanesthesia care unit in the [facility]. Raffy Mccormack MD cc: [id number] TT: 10/02/2016 14:29:45 mn
--- NOTE | 2016-10-02 18:46 | PN ---
DATE: 10/02/2016 ROOM: 663 This is a 46-year-old female with recent uncontrolled type 2 insulin-requiring diabetes, now being fo llowed closely for metabolic management. She underwent a right below knee amputation procedure yeste rd, which was tolerated very well as noted. Her glycemic levels are much improved at this time and the latest glucose values have ranged from 97- 114 mg/dL. The latest chemistries showed a BUN of 29, sodium 137, potassium 3.8, chloride 98, CO2 26 , glucose 107 and creatinine 6.4. So at this time, we will continue the Humalog given as 8 units subQ t.i.d. before meals as given. We will also resume the basal insulin given as Levemir at 30 units subQ at bedtime daily as ordered. W e will titrate incrementally as indicated to optimize metabolic control. We will follow. Irene Ambrose MD cc: [id number] TT: 10/02/2016 18:45:46 Confirmation # [id number] Dictation # [id number] en
[2016-10-02] MEDS: Sodium Chloride 0.9% 1,000 ML IV SCH (18:49)
[2016-10-02] MEDS: Insulin Detemir 100 Units/ml Inj SC SCH (22:22)
--- NOTE | 2016-10-03 00:02 | CP.PCM.PN ---
Subjective - Date & Time of Evaluation Date of Evaluation: 10/02/16 Time of Evaluation: 21:00 - Subjective Subjective: She is recovering from her Right BKA She is on 4 Antibiotics for her infection. She has no seizures, on Topamax 50 mg Q12 We are awaiting for the Pathology report. Objective - Vital Signs/Intake and Output Vital Signs (last 24 hours): Temp Pulse Resp BP Pulse Ox 98.7 F 125 H 20 99/59 L 93 L 10/02/16 17:27 10/02/16 16:23 10/02/16 16:23 10/02/16 16:23 10/02/16 16:23 - Medications Medications: Current Medications Acetaminophen (Tylenol 325mg Tab) 650 mg PO Q4 PRN PRN Reason: Fever >100.4 F Last Admin: 10/02/16 16:27 Dose: 650 mg Acetaminophen (Tylenol 325mg Tab) 650 mg PO Q4 PRN PRN Reason: Pain, moderate (4-7) Last Admin: 09/16/16 22:34 Dose: 650 mg Albuterol Sulfate (Albuterol 0.083% Inhal Barbie (2.5 Mg/3 Ml) Ud) 2.5 mg INH RQ4 PRN PRN Reason: Shortness of Breath Albuterol/Ipratropium (Duoneb 3 Mg/0.5 Mg (3 Ml) Ud) 3 ml INH RQ4 PRN PRN Reason: Shortness of Breath Apixaban (Eliquis) 5 mg PO BID JASPER PRN Reason: Protocol Last Admin: 09/30/16 16:52 Dose: Not Given Aspirin (Ecotrin) 81 mg PO DAILY [facility] Last Admin: 10/02/16 14:30 Dose: 81 mg Atorvastatin Calcium (Lipitor) 40 mg PO DAILY [facility] Last Admin: 10/02/16 14:05 Dose: 40 mg Benzonatate (Tessalon Perles) 200 mg PO TID PRN PRN Reason: Cough Last Admin: 10/02/16 14:07 Dose: 200 mg Cinacalcet (Sensipar) 30 mg PO DAILY [facility] Last Admin: 10/02/16 14:08 Dose: 30 mg Epoetin Tha (Procrit) 20,000 unit IV MWF [facility] Last Admin: 10/02/16 09:12 Dose: 20,000 unit Ergocalciferol (Drisdol 50,000 Intl Units Cap) 1 cap PO Q7D [facility] Stop: 11/06/16 11:16 Last Admin: 10/02/16 14:06 Dose: 1 cap Fluconazole (Diflucan) 100 mg PO DAILY [facility] Last Admin: 10/02/16 14:23 Dose: 100 mg Hydrocortisone (Anusol-Hc) 1 applic [place] BID [facility] Last Admin: 10/02/16 16:19 Dose: 1 applic Hydromorphone HCl (Dilaudid) 2 mg PO Q4 PRN PRN Reason: Pain, moderate (4-7) Last Admin: 09/30/16 12:34 Dose: 2 mg Hydromorphone HCl (Dilaudid) 0.5 mg IVP Q4 PRN PRN Reason: Pain, severe (8-10) Hydromorphone HCl (Dilaudid) 2 mg IVP Q2H PRN PRN Reason: Pain, severe (8-10) Last Admin: 10/02/16 22:19 Dose: 2 mg Amikacin Sulfate 250 mg/ (Sodium Chloride) 101 mls @ 100.609 mls/hr IVPB MWF [facility] Last Admin: 10/02/16 13:01 Dose: 100.609 mls/hr Linezolid (Zyvox 600mg/300ml D5w) 600 mg in 300 mls @ 300 mls/hr IVPB Q12@0400, 1600 [facility] Last Admin: 10/02/16 16:15 Dose: 300 mls/hr Meropenem 500 mg/ Sodium (Chloride) 100 mls @ 100 mls/hr IVPB DAILY@0100 [facility] Last Admin: 10/02/16 00:46 Dose: 100 mls/hr Piperacillin Sod/Tazobactam (Sod 2.25 gm/ Sodium Chloride) 100 mls @ 100 mls/ hr IVPB Q12@0600,1800 [facility] Last Admin: 10/02/16 18:02 Dose: 100 mls/hr Sodium Chloride (Sodium Chloride 0.9%) 1,000 mls @ 10 mls/hr IV .Q24H [facility] Last Admin: 10/02/16 18:49 Dose: Not Given Insulin Detemir (Levemir) 30 units SC [facility] Last Admin: 10/02/16 22:22 Dose: 30 units Insulin Human Lispro (Humalog) 8 units SC AC [facility] Last Admin: 10/02/16 18:00 Dose: 8 units Insulin Human Regular (Humulin R) 0 units SC ACHS [facility] PRN Reason: Protocol Last Admin: 10/02/16 22:25 Dose: Not Given Lidocaine (Lidoderm) 1 ea TD DAILY [facility] Last Admin: 10/02/16 14:25 Dose: 1 ea Medroxyprogesterone Acetate (Provera) 10 mg PO DAILY [facility] Last Admin: 10/02/16 14:06 Dose: 10 mg Nystatin (Mycostatin Oint) 1 applic TOP TID [facility] Last Admin: 10/02/16 16:18 Dose: 1 applic Ondansetron HCl (Zofran Inj) 4 mg IVP Q6 PRN PRN Reason: Nausea/Vomiting Last Admin: 09/19/16 10:26 Dose: 4 mg Pantoprazole Sodium (Protonix Ec Tab) 40 mg PO DAILY [facility] Last Admin: 10/02/16 14:12 Dose: 40 mg Sevelamer HCl (Renagel) 1,600 mg PO TID [facility] Last Admin: 10/02/16 16:17 Dose: 1,600 mg Topiramate (Topamax) 50 mg PO BID [facility] Last Admin: 10/02/16 16:18 Dose: 50 mg Vitamin B Complex/Vit C/Folic Acid (Nephro-Ajay) 1 tab PO DAILY [facility] Last Admin: 10/02/16 14:05 Dose: 1 tab - Labs Labs: 10/02/16 09:00 10/02/16 09:00 PT 13.0 SECONDS (9.6-11.2) H 09/29/16 05:30 INR 1.25 (0.92-1.08) H 09/29/16 05:30 APTT 32.5 SECONDS (23.3-32.5) 09/29/16 05:30 Assessment and Plan (1) Diabetes Status: Chronic (2) ESRD (end stage renal disease) Status: Chronic (3) Cellulitis of leg Status: Acute (4) Hyperlipidemia Status: Chronic (5) Back pain Status: Acute (6) Bacteremia due to Gram-negative bacteria Status: Acute (7) Diabetes mellitus type 2 with peripheral artery disease Status: Acute (8) PVD (peripheral vascular disease) Status: Acute
[2016-10-03] MEDS: Meropenem 500 MG in Sodium Chloride 0.9% 100 ML IVPB SCH (00:30)
[2016-10-03] MEDS: Linezolid 600 mg in D5W 300 ml 600 MG/300 ML BAG IVPB SCH ×2 (03:45→16:45)
[2016-10-03] MEDS: Insulin Regular 100 units/ml SC SCH ×2 (07:30→11:30)
[2016-10-03] MEDS ORDERED: HYDROmorphone 0.5 mg/0.5 ml ISec IVP PRN (08:00)
[2016-10-03] MEDS: Hydrocortisone 2.5% (Rectal) CREAM PR SCH ×2 (09:00→19:32)
[2016-10-03] MEDS: Lidocaine 5% Patch TD SCH (09:01)
[2016-10-03] MEDS: Pantoprazole 40 mg EC Tab PO SCH (09:02)
[2016-10-03] MEDS: Multivitamin Vitamin B Complex (Nephro-Vite) Tab PO SCH (09:02)
[2016-10-03] MEDS: Nystatin Ointment TOP SCH ×3 (09:03→18:12)
[2016-10-03] MEDS: Insulin Lispro (humaLOG) 100 Units/ml Inj SC SCH ×3 (09:06→16:30)
[2016-10-03 09:42] LABS: HEMATOCRIT 27.8 % (34.0-47.0)
--- NOTE | 2016-10-03 10:27 | CP.PCM.PN ---
Subjective - Date & Time of Evaluation Date of Evaluation: 10/03/16 Time of Evaluation: 10:25 - Subjective Subjective: This is a vascular surgery progress note for Dr. Mccormack: 46 y/o female seen and examined at bedside POD#2 s/p right BKA. Patient appears in NAD and AAOx3. Patient denies any acute events overnight. She denies any n/f/ c/v/d/sob. Patient states that her pain level is improving. She complains of mild itchiness of the right thigh. She denies any other complaints at this time. Knee immobilizer is in place to right leg and dressing remains clean,dry, intact. Objective - Vital Signs/Intake and Output Vital Signs (last 24 hours): Temp Pulse Resp BP Pulse Ox 98.3 F 112 H 18 90/61 L 94 L 10/03/16 07:28 10/03/16 07:28 10/03/16 07:28 10/03/16 07:28 10/03/16 07:28 - Medications Medications: Current Medications Acetaminophen (Tylenol 325mg Tab) 650 mg PO Q4 PRN PRN Reason: Fever >100.4 F Last Admin: 10/02/16 16:27 Dose: 650 mg Acetaminophen (Tylenol 325mg Tab) 650 mg PO Q4 PRN PRN Reason: Pain, moderate (4-7) Last Admin: 09/16/16 22:34 Dose: 650 mg Albuterol Sulfate (Albuterol 0.083% Inhal Barbie (2.5 Mg/3 Ml) Ud) 2.5 mg INH RQ4 PRN PRN Reason: Shortness of Breath Albuterol/Ipratropium (Duoneb 3 Mg/0.5 Mg (3 Ml) Ud) 3 ml INH RQ4 PRN PRN Reason: Shortness of Breath Apixaban (Eliquis) 5 mg PO BID JAS[facility] PRN Reason: Protocol Last Admin: 09/30/16 16:52 Dose: Not Given Aspirin (Ecotrin) 81 mg PO DAILY [facility] Last Admin: 10/02/16 14:30 Dose: 81 mg Atorvastatin Calcium (Lipitor) 40 mg PO DAILY [facility] Last Admin: 10/03/16 09:05 Dose: 40 mg Benzonatate (Tessalon Perles) 200 mg PO TID PRN PRN Reason: Cough Last Admin: 10/02/16 14:07 Dose: 200 mg Cinacalcet (Sensipar) 30 mg PO DAILY [facility] Last Admin: 10/03/16 09:04 Dose: 30 mg Epoetin Tha (Procrit) [facility] Last Admin: 10/02/16 09:12 Dose: 20,000 unit Ergocalciferol (Drisdol 50,000 Intl Units Cap) 1 cap PO Q7D [facility] Stop: 11/06/16 11:16 Last Admin: 10/02/16 14:06 Dose: 1 cap Fluconazole (Diflucan) 100 mg PO DAILY [facility] Last Admin: 10/03/16 09:00 Dose: 100 mg Hydrocortisone (Anusol-Hc) 1 applic [place] BID [facility] Last Admin: 10/03/16 09:00 Dose: 1 applic Hydromorphone HCl (Dilaudid) 2 mg PO Q4 PRN PRN Reason: Pain, moderate (4-7) Last Admin: 09/30/16 12:34 Dose: 2 mg Hydromorphone HCl (Dilaudid) 0.5 mg IVP Q4 PRN PRN Reason: Pain, severe (8-10) Hydromorphone HCl (Dilaudid) 2 mg IVP Q2H PRN PRN Reason: Pain, severe (8-10) Last Admin: 10/03/16 08:35 Dose: 2 mg Amikacin Sulfate 250 mg/ (Sodium Chloride) 101 mls @ 100.609 mls/hr [place] [facility] Last Admin: 10/02/16 13:01 Dose: 100.609 mls/hr Linezolid (Zyvox 600mg/300ml D5w) 600 mg in 300 mls @ 300 mls/hr IVPB Q12@0400, 1600 [facility] Last Admin: 10/03/16 03:45 Dose: 300 mls/hr Meropenem 500 mg/ Sodium (Chloride) 100 mls @ 100 mls/hr IVPB DAILY@0100 [facility] Last Admin: 10/03/16 00:30 Dose: 100 mls/hr Piperacillin Sod/Tazobactam (Sod 2.25 gm/ Sodium Chloride) 100 mls @ 100 mls/ hr IVPB Q12@0600,1800 [facility] Last Admin: 10/03/16 05:48 Dose: 100 mls/hr Sodium Chloride (Sodium Chloride 0.9%) 1,000 mls @ 10 mls/hr IV .Q24H [facility] Last Admin: 10/02/16 18:49 Dose: Not Given Insulin Detemir (Levemir) 30 units SC HS [facility] Last Admin: 10/02/16 22:22 Dose: 30 units Insulin Human Lispro (Humalog) 8 units SC AC [facility] Last Admin: 10/03/16 09:06 Dose: 8 units Insulin Human Regular (Humulin R) 0 units SC ACHS [facility] PRN Reason: Protocol Last Admin: 10/02/16 22:25 Dose: Not Given Lidocaine (Lidoderm) 1 ea TD DAILY [facility] Last Admin: 10/03/16 09:01 Dose: 1 ea Medroxyprogesterone Acetate (Provera) 10 mg PO DAILY [facility] Last Admin: 10/03/16 09:04 Dose: 10 mg Nystatin (Mycostatin Oint) 1 applic TOP TID [facility] Last Admin: 10/03/16 09:03 Dose: 1 applic Ondansetron HCl (Zofran Inj) 4 mg IVP Q6 PRN PRN Reason: Nausea/Vomiting Last Admin: 09/19/16 10:26 Dose: 4 mg Pantoprazole Sodium (Protonix Ec Tab) 40 mg PO DAILY [facility] Last Admin: 10/03/16 09:02 Dose: 40 mg Sevelamer HCl (Renagel) 1,600 mg PO TID [facility] Last Admin: 10/03/16 09:02 Dose: 1,600 mg Topiramate (Topamax) 50 mg PO BID [facility] Last Admin: 10/03/16 09:03 Dose: 50 mg Vitamin B Complex/Vit C/Folic Acid (Nephro-Ajay) 1 tab PO DAILY [facility] Last Admin: 10/03/16 09:02 Dose: 1 tab - Labs Labs: 10/03/16 09:30 10/02/16 09:00 PT 13.0 SECONDS (9.6-11.2) H 09/29/16 05:30 INR 1.25 (0.92-1.08) H 09/29/16 05:30 APTT 32.5 SECONDS (23.3-32.5) 09/29/16 05:30 - Constitutional Appears: Well, Non-toxic, No Acute Distress - Neurological Exam Neurological Exam: Alert, Awake, Oriented x3 Assessment and Plan - Assessment and Plan (Free Text) Assessment: 46 y/o female s/p Right BKA POD#2 renal diet cont. pain control H&H: 8.9/27.8 cont. w/ knee immobilizer to R leg Continue medical managment per primary team Will Discuss with Dr. Mccormack
--- NOTE | 2016-10-03 14:50 | CP.PCM.PN ---
Subjective - Date & Time of Evaluation Date of Evaluation: 10/03/16 Time of Evaluation: 14:46 - Subjective Subjective: Patient was crying with throbbing pain in right residual limb. Dressing is intact and dry. No fevers. No cough or dyspnea or chest pain. Still with vaginal bleeding despite provera. Employment Service Specialist consult by Dr. Larry is pending. Patient is eating. Insulin orders per Dr. Ambrose. I have added Gabapentin 300mg tid and increased the Dilaudid to 1mg IV pLUS 4mg po q3h (GIVEN TOGETHER) prn SEVERE PAIN. Anemia - CBC and BMP to be done by dialysis nurse tomorrow. Physical therapy and occupational therapy has begun, but patient cannot get out of bed today because of severe pain. We are holding for one more day and hope to restart Eliquis in the morning. Objective - Vital Signs/Intake and Output Vital Signs (last 24 hours): Temp Pulse Resp BP Pulse Ox 98.3 F 112 H 18 90/61 L 94 L 10/03/16 07:28 10/03/16 07:28 10/03/16 07:28 10/03/16 07:28 10/03/16 07:28 - Medications Medications: Current Medications Acetaminophen (Tylenol 325mg Tab) 650 mg PO Q4 PRN PRN Reason: Fever >100.4 F Last Admin: 10/02/16 16:27 Dose: 650 mg Acetaminophen (Tylenol 325mg Tab) 650 mg PO Q4 PRN PRN Reason: Pain, moderate (4-7) Last Admin: 09/16/16 22:34 Dose: 650 mg Albuterol Sulfate (Albuterol 0.083% Inhal Barbie (2.5 Mg/3 Ml) Ud) 2.5 mg INH RQ4 PRN PRN Reason: Shortness of Breath Albuterol/Ipratropium (Duoneb 3 Mg/0.5 Mg (3 Ml) Ud) 3 ml INH RQ4 PRN PRN Reason: Shortness of Breath Apixaban (Eliquis) 5 mg PO BID JASPER PRN Reason: Protocol Last Admin: 09/30/16 16:52 Dose: Not Given Aspirin (Ecotrin) 81 mg PO DAILY [facility] Last Admin: 10/03/16 10:31 Dose: 81 mg Atorvastatin Calcium (Lipitor) 40 mg PO DAILY [facility] Last Admin: 10/03/16 09:05 Dose: 40 mg Benzonatate (Tessalon Perles) 200 mg PO TID PRN PRN Reason: Cough Last Admin: 10/02/16 14:07 Dose: 200 mg Cinacalcet (Sensipar) 30 mg PO DAILY [facility] Last Admin: 10/03/16 09:04 Dose: 30 mg Diphenhydramine HCl (Benadryl) 25 mg PO Q6 PRN PRN Reason: Itching / Pruritus Epoetin Tha (Procrit) [facility] Last Admin: 10/02/16 09:12 Dose: 20,000 unit Ergocalciferol (Drisdol 50,000 Intl Units Cap) 1 cap PO Q7D [facility] Stop: 11/06/16 11:16 Last Admin: 10/02/16 14:06 Dose: 1 cap Fluconazole (Diflucan) 100 mg PO DAILY [facility] Last Admin: 10/03/16 09:00 Dose: 100 mg Hydrocortisone (Anusol-Hc) 1 applic [place] BID [facility] Last Admin: 10/03/16 09:00 Dose: 1 applic Hydromorphone HCl (Dilaudid) 1 mg IVP Q3H PRN PRN Reason: Pain, severe (8-10) Hydromorphone HCl (Dilaudid) 4 mg PO Q3H PRN PRN Reason: Pain, severe (8-10) Amikacin Sulfate 250 mg/ (Sodium Chloride) 101 mls @ 100.609 mls/hr IVPB [facility] Last Admin: 10/02/16 13:01 Dose: 100.609 mls/hr Linezolid (Zyvox 600mg/300ml D5w) 600 mg in 300 mls @ 300 mls/hr IVPB Q12@0400, 1600 [facility] Last Admin: 10/03/16 03:45 Dose: 300 mls/hr Meropenem 500 mg/ Sodium (Chloride) 100 mls @ 100 mls/hr IVPB DAILY@0100 [facility] Last Admin: 10/03/16 00:30 Dose: 100 mls/hr Piperacillin Sod/Tazobactam (Sod 2.25 gm/ Sodium Chloride) 100 mls @ 100 mls/ hr IVPB Q12@0600,1800 [facility] Last Admin: 10/03/16 05:48 Dose: 100 mls/hr Sodium Chloride (Sodium Chloride 0.9%) 1,000 mls @ 10 mls/hr IV .Q24H [facility] Last Admin: 10/02/16 18:49 Dose: Not Given Insulin Detemir (Levemir) 30 units SC HS [facility] Last Admin: 10/02/16 22:22 Dose: 30 units Insulin Human Lispro (Humalog) 8 units SC AC [facility] Last Admin: 10/03/16 11:00 Dose: Not Given Insulin Human Regular (Humulin R) 0 units SC ACHS [facility] PRN Reason: Protocol Last Admin: 10/03/16 11:30 Dose: Not Given Lidocaine (Lidoderm) 1 ea TD DAILY [facility] Last Admin: 10/03/16 09:01 Dose: 1 ea Medroxyprogesterone Acetate (Provera) 10 mg PO DAILY [facility] Last Admin: 10/03/16 09:04 Dose: 10 mg Nystatin (Mycostatin Oint) 1 applic TOP TID [facility] Last Admin: 10/03/16 09:03 Dose: 1 applic Ondansetron HCl (Zofran Inj) 4 mg IVP Q6 PRN PRN Reason: Nausea/Vomiting Last Admin: 09/19/16 10:26 Dose: 4 mg Pantoprazole Sodium (Protonix Ec Tab) 40 mg PO DAILY [facility] Last Admin: 10/03/16 09:02 Dose: 40 mg Sevelamer HCl (Renagel) 1,600 mg PO TID [facility] Last Admin: 10/03/16 09:02 Dose: 1,600 mg Topiramate (Topamax) 50 mg PO BID [facility] Last Admin: 10/03/16 09:03 Dose: 50 mg Vitamin B Complex/Vit C/Folic Acid (Nephro-Ajay) 1 tab PO DAILY [facility] Last Admin: 10/03/16 09:02 Dose: 1 tab - Labs Labs: 10/03/16 09:30 10/02/16 09:00 PT 13.0 SECONDS (9.6-11.2) H 09/29/16 05:30 INR 1.25 (0.92-1.08) H 09/29/16 05:30 APTT 32.5 SECONDS (23.3-32.5) 09/29/16 05:30 - Constitutional Appears: In Acute Distress, Other (severe pain right residual limb - throbbing) - Head Exam Head Exam: NORMAL INSPECTION - Eye Exam Eye Exam: Normal appearance - ENT Exam ENT Exam: Mucous Membranes Moist - Neck Exam Neck Exam: Normal Inspection - Respiratory Exam Respiratory Exam: Clear to Ausculation Bilateral, NORMAL BREATHING PATTERN - Cardiovascular Exam Cardiovascular Exam: REGULAR RHYTHM, +S1, +S2 - GI/Abdominal Exam GI & Abdominal Exam: Soft, Normal Bowel Sounds - Extremities Exam Additional comments: Right residual limb in dressing- dry and intact - no sign of oozing. - Back Exam Back Exam: NORMAL INSPECTION Assessment and Plan (1) Osteomyelitis of ankle or foot Assessment & Plan: S/p Right BK amputation - day # 2 Severe pain, otherwise stable. SEE SUBJECTIVE Status: Acute (2) ESRD (end stage renal disease) on dialysis Status: Chronic (3) DM type 2 (diabetes mellitus, type 2) Status: Chronic (4) Coagulopathy Status: Chronic (5) Peripheral arterial occlusive disease Status: Chronic (6) Anemia, blood loss Status: Acute
[2016-10-03] MEDS: HYDROmorphone 0.5 mg/0.5 ml ISec IVP PRN ×2 (15:04→22:18)
--- NOTE | 2016-10-03 15:45 | CP.PCM.PN ---
Subjective - Date & Time of Evaluation Date of Evaluation: 10/03/16 Time of Evaluation: 15:40 - Subjective Subjective: No acute events overnight. Remained hemodynamically stable. Complained of significant amount of pain at the surgical site- responded to increased Dilaudid dose. Otherwise, patient seems to be progressing fairly well. Review of systems and physical exam are overall benign. Right leg stump dressing is in place, clean and dry. Knee immobilizer is in place. Continue medical management. Nutritional support. PT/OT. Will follow. Objective - Vital Signs/Intake and Output Vital Signs (last 24 hours): Temp Pulse Resp BP Pulse Ox 98.3 F 112 H 18 90/61 L 94 L 10/03/16 07:28 10/03/16 07:28 10/03/16 07:28 10/03/16 07:28 10/03/16 07:28 - Medications Medications: Current Medications Acetaminophen (Tylenol 325mg Tab) 650 mg PO Q4 PRN PRN Reason: Fever >100.4 F Last Admin: 10/02/16 16:27 Dose: 650 mg Acetaminophen (Tylenol 325mg Tab) 650 mg PO Q4 PRN PRN Reason: Pain, moderate (4-7) Last Admin: 09/16/16 22:34 Dose: 650 mg Albuterol Sulfate (Albuterol 0.083% Inhal Barbie (2.5 Mg/3 Ml) Ud) 2.5 mg INH RQ4 PRN PRN Reason: Shortness of Breath Albuterol/Ipratropium (Duoneb 3 Mg/0.5 Mg (3 Ml) Ud) 3 ml INH RQ4 PRN PRN Reason: Shortness of Breath Apixaban (Eliquis) 5 mg PO BID [facility] PRN Reason: Protocol Last Admin: 09/30/16 16:52 Dose: Not Given Aspirin (Ecotrin) 81 mg PO DAILY [facility] Last Admin: 10/03/16 10:31 Dose: 81 mg Atorvastatin Calcium (Lipitor) 40 mg PO DAILY [facility] Last Admin: 10/03/16 09:05 Dose: 40 mg Benzonatate (Tessalon Perles) 200 mg PO TID PRN PRN Reason: Cough Last Admin: 10/02/16 14:07 Dose: 200 mg Cinacalcet (Sensipar) 30 mg PO DAILY [facility] Last Admin: 10/03/16 09:04 Dose: 30 mg Diphenhydramine HCl (Benadryl) 25 mg PO Q6 PRN PRN Reason: Itching / Pruritus Epoetin Tha (Procrit) 20,000 unit IV MWF [facility] Last Admin: 10/02/16 09:12 Dose: 20,000 unit Ergocalciferol (Drisdol 50,000 Intl Units Cap) 1 cap PO Q7D [facility] Stop: 11/06/16 11:16 Last Admin: 10/02/16 14:06 Dose: 1 cap Fluconazole (Diflucan) 100 mg PO DAILY [facility] Last Admin: 10/03/16 09:00 Dose: 100 mg Gabapentin (Neurontin) 300 mg PO TID [facility] Hydrocortisone (Anusol-Hc) 1 applic HI BID [facility] Last Admin: 10/03/16 09:00 Dose: 1 applic Hydromorphone HCl (Dilaudid) 2 mg IVP Q2H PRN PRN Reason: Pain, severe (8-10) Last Admin: 10/03/16 08:35 Dose: 2 mg Hydromorphone HCl (Dilaudid) 1 mg IVP Q3H PRN PRN Reason: Pain, severe (8-10) Last Admin: 10/03/16 15:04 Dose: 1 mg Hydromorphone HCl (Dilaudid) 4 mg PO Q3H PRN PRN Reason: Pain, severe (8-10) Last Admin: 10/03/16 15:02 Dose: 4 mg Amikacin Sulfate 250 mg/ (Sodium Chloride) 101 mls @ 100.609 mls/hr IVPB [facility] Last Admin: 10/02/16 13:01 Dose: 100.609 mls/hr Linezolid (Zyvox 600mg/300ml D5w) 600 mg in 300 mls @ 300 mls/hr IVPB Q12@0400, 1600 [facility] Last Admin: 10/03/16 03:45 Dose: 300 mls/hr Meropenem 500 mg/ Sodium (Chloride) 100 mls @ 100 mls/hr IVPB DAILY@0100 [facility] Last Admin: 10/03/16 00:30 Dose: 100 mls/hr Piperacillin Sod/Tazobactam (Sod 2.25 gm/ Sodium Chloride) 100 mls @ 100 mls/ hr IVPB Q12@0600,1800 [facility] Last Admin: 10/03/16 05:48 Dose: 100 mls/hr Sodium Chloride (Sodium Chloride 0.9%) 1,000 mls @ 10 mls/hr IV .Q24H [facility] Last Admin: 10/02/16 18:49 Dose: Not Given Insulin Detemir (Levemir) 30 units SC HS [facility] Last Admin: 10/02/16 22:22 Dose: 30 units Insulin Human Lispro (Humalog) 8 units SC AC [facility] Last Admin: 10/03/16 11:00 Dose: Not Given Insulin Human Regular (Humulin R) 0 units SC ACHS [facility] PRN Reason: Protocol Last Admin: 10/03/16 11:30 Dose: Not Given Lidocaine (Lidoderm) 1 ea TD DAILY [facility] Last Admin: 10/03/16 09:01 Dose: 1 ea Medroxyprogesterone Acetate (Provera) 10 mg PO DAILY [facility] Last Admin: 10/03/16 09:04 Dose: 10 mg Nystatin (Mycostatin Oint) 1 applic TOP TID [facility] Last Admin: 10/03/16 15:17 Dose: Not Given Ondansetron HCl (Zofran Inj) 4 mg IVP Q6 PRN PRN Reason: Nausea/Vomiting Last Admin: 09/19/16 10:26 Dose: 4 mg Pantoprazole Sodium (Protonix Ec Tab) 40 mg PO DAILY [facility] Last Admin: 10/03/16 09:02 Dose: 40 mg Sevelamer HCl (Renagel) 1,600 mg PO TID [facility] Last Admin: 10/03/16 09:02 Dose: 1,600 mg Topiramate (Topamax) 50 mg PO BID [facility] Last Admin: 10/03/16 09:03 Dose: 50 mg Vitamin B Complex/Vit C/Folic Acid (Nephro-Ajay) 1 tab PO DAILY [facility] Last Admin: 10/03/16 09:02 Dose: 1 tab - Labs Labs: 10/03/16 09:30 10/02/16 09:00 PT 13.0 SECONDS (9.6-11.2) H 09/29/16 05:30 INR 1.25 (0.92-1.08) H 09/29/16 05:30 APTT 32.5 SECONDS (23.3-32.5) 09/29/16 05:30
--- NOTE | 2016-10-03 17:51 | PN ---
DATE: 10/03/2016 LOCATION: Room 663. SUBJECTIVE: This is a 46-year-old female with a recent below-knee amputation for underlying severe o steomyelitis and cellulitis with nonhealing neuropathic heel ulcer and underlying severe peripheral a rterial vasculopathy, and is now being followed closely for metabolic management. LABORATORY DATA: Her insulin regimen was resumed postoperatively and the latest chemistries showed a BUN of 29, sodium 137, potassium 3.8, chloride 98, CO2 16, glucose 107, and creatinine 6.4. ASSESSMENT AND PLAN: So, at this time, will continue the same basal and bolus insulin regimen as giv en with Humalog given as 8 units subcutaneous t.i.d. before meals and Levemir given as 30 units subcu taneous at bedtime daily as given. Will titrate to optimize . Will follow patient. Irene Ambrose MD cc: [id number] TT: 10/03/2016 17:50:38 Confirmation # [id number] Dictation # [id number] amalia
[2016-10-03] MEDS: Insulin Detemir 100 Units/ml Inj SC SCH (22:06)
[2016-10-04] MEDS: Meropenem 500 MG in Sodium Chloride 0.9% 100 ML IVPB SCH (01:04)
--- NOTE | 2016-10-04 01:54 | CP.PCM.PN ---
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 She feels severe pain and is crying due to the pain there. She is eating. There is no seizures on Topamax 50 mg BID. Objective - Vital Signs/Intake and Output Vital Signs (last 24 hours): Temp Pulse Resp BP Pulse Ox 99.6 F 118 H 20 125/71 97 10/03/16 16:05 10/03/16 16:05 10/03/16 16:05 10/03/16 16:10/03/16 16:05 - Medications Medications: Current Medications Acetaminophen (Tylenol 325mg Tab) 650 mg PO Q4 PRN PRN Reason: Fever >100.4 F Last Admin: 10/02/16 16:27 Dose: 650 mg Acetaminophen (Tylenol 325mg Tab) 650 mg PO Q4 PRN PRN Reason: Pain, moderate (4-7) Last Admin: 09/16/16 22:34 Dose: 650 mg Albuterol Sulfate (Albuterol 0.083% Inhal Barbie (2.5 Mg/3 Ml) Ud) 2.5 mg INH RQ4 PRN PRN Reason: Shortness of Breath Albuterol/Ipratropium (Duoneb 3 Mg/0.5 Mg (3 Ml) Ud) 3 ml INH RQ4 PRN PRN Reason: Shortness of Breath Apixaban (Eliquis) 5 mg PO BID [facility] PRN Reason: Protocol Last Admin: 09/30/16 16:52 Dose: Not Given Aspirin (Ecotrin) 81 mg PO DAILY [facility] Last Admin: 10/03/16 10:31 Dose: 81 mg Atorvastatin Calcium (Lipitor) 40 mg PO DAILY [facility] Last Admin: 10/03/16 09:05 Dose: 40 mg Benzonatate (Tessalon Perles) 200 mg PO TID PRN PRN Reason: Cough Last Admin: 10/02/16 14:07 Dose: 200 mg Cinacalcet (Sensipar) 30 mg PO DAILY [facility] Last Admin: 10/03/16 09:04 Dose: 30 mg Diphenhydramine HCl (Benadryl) 25 mg PO Q6 PRN PRN Reason: Itching / Pruritus Epoetin Tha (Procrit) 20,000 unit IV MWF [facility] Last Admin: 10/02/16 09:12 Dose: 20,000 unit Ergocalciferol (Drisdol 50,000 Intl Units Cap) 1 cap PO Q7D [facility] Stop: 11/06/16 11:16 Last Admin: 10/02/16 14:06 Dose: 1 cap Fluconazole (Diflucan) 100 mg PO DAILY [facility] Last Admin: 10/03/16 09:00 Dose: 100 mg Gabapentin (Neurontin) 300 mg PO TID [facility] Last Admin: 10/03/16 18:15 Dose: 300 mg Hydrocortisone (Anusol-Hc) 1 applic [place] BID [facility] Last Admin: 10/03/16 19:32 Dose: 1 applic Hydromorphone HCl (Dilaudid) 4 mg PO Q3H PRN PRN Reason: Pain, severe (8-10) Last Admin: 10/03/16 22:16 Dose: 4 mg Hydromorphone HCl (Dilaudid) 2 mg IVP Q2H PRN PRN Reason: Pain, severe (8-10) Hydromorphone HCl (Dilaudid) 1 mg IVP Q3H PRN PRN Reason: Pain, severe (8-10) Amikacin Sulfate 250 mg/ (Sodium Chloride) 101 mls @ 100.609 mls/hr IVPB [facility] Last Admin: 10/02/16 13:01 Dose: 100.609 mls/hr Linezolid (Zyvox 600mg/300ml D5w) 600 mg in 300 mls @ 300 mls/hr IVPB Q12@0400, 1600 [facility] Last Admin: 10/03/16 16:45 Dose: 300 mls/hr Meropenem 500 mg/ Sodium (Chloride) 100 mls @ 100 mls/hr IVPB DAILY@0100 [facility] Last Admin: 10/04/16 01:04 Dose: 100 mls/hr Piperacillin Sod/Tazobactam (Sod 2.25 gm/ Sodium Chloride) 100 mls @ 100 mls/ hr IVPB Q12@0600,1800 [facility] Last Admin: 10/03/16 17:06 Dose: 100 mls/hr Sodium Chloride (Sodium Chloride 0.9%) 1,000 mls @ 10 mls/hr IV .Q24H [facility] Last Admin: 10/02/16 18:49 Dose: Not Given Insulin Detemir (Levemir) 30 units SC HS [facility] Last Admin: 10/03/16 22:06 Dose: 30 units Insulin Human Lispro (Humalog) 8 units SC AC [facility] Last Admin: 10/03/16 16:30 Dose: 8 units Lidocaine (Lidoderm) 1 ea TD DAILY [facility] Last Admin: 10/03/16 09:01 Dose: 1 ea Medroxyprogesterone Acetate (Provera) 10 mg PO DAILY [facility] Last Admin: 10/03/16 09:04 Dose: 10 mg Nystatin (Mycostatin Oint) 1 applic TOP TID [facility] Last Admin: 10/03/16 18:12 Dose: 1 applic Ondansetron HCl (Zofran Inj) 4 mg IVP Q6 PRN PRN Reason: Nausea/Vomiting Last Admin: 09/19/16 10:26 Dose: 4 mg Pantoprazole Sodium (Protonix Ec Tab) 40 mg PO DAILY [facility] Last Admin: 10/03/16 09:02 Dose: 40 mg Sevelamer HCl (Renagel) 1,600 mg PO TID [facility] Last Admin: 10/03/16 18:15 Dose: 1,600 mg Topiramate (Topamax) 50 mg PO BID [facility] Last Admin: 10/03/16 17:00 Dose: 50 mg Vitamin B Complex/Vit C/Folic Acid (Nephro-Ajay) 1 tab PO DAILY [facility] Last Admin: 10/03/16 09:02 Dose: 1 tab - Labs Labs: 10/03/16 09:30 10/02/16 09:00 PT 13.0 SECONDS (9.6-11.2) H 09/29/16 05:30 INR 1.25 (0.92-1.08) H 09/29/16 05:30 APTT 32.5 SECONDS (23.3-32.5) 09/29/16 05:30 Assessment and Plan (1) Diabetes Status: Chronic (2) ESRD (end stage renal disease) Status: Chronic (3) Cellulitis of leg Status: Acute (4) Hyperlipidemia Status: Chronic (5) Back pain Status: Acute (6) Bacteremia due to Gram-negative bacteria Status: Acute (7) Diabetes mellitus type 2 with peripheral artery disease Status: Acute (8) PVD (peripheral vascular disease) Status: Acute
[2016-10-04] MEDS: Linezolid 600 mg in D5W 300 ml 600 MG/300 ML BAG IVPB SCH ×3 (03:59→20:52)
[2016-10-04] MEDS: HYDROmorphone 0.5 mg/0.5 ml ISec IVP PRN ×5 (04:54→21:03)
[2016-10-04 07:32] LABS: HEMATOCRIT 25.4 % (34.0-47.0); MEAN CELL VOLUME 91.5 fl (81.0-99.0); MEAN CORPUSCULAR HEMOGLOBIN 28.8 pg (27.0-31.0); MEAN CORPUSCULAR HGB CONC 31.5 g/dL (33.0-37.0); RED CELL DISTRIBUTION WIDTH 17.8 % (11.5-14.5); WHITE BLOOD COUNT 15.4 K/uL (4.8-10.8)
[2016-10-04 07:46] LABS: CALCIUM 8.7 mg/dL (8.4-10.2); POTASSIUM 3.9 MMOL/L (3.6-5.0)
--- NOTE | 2016-10-04 08:18 | CP.PCM.PN ---
Subjective - Date & Time of Evaluation Date of Evaluation: 10/04/16 Time of Evaluation: 07:57 - Subjective Subjective: Pt is doing well on the present pain regimen. All her c/s are negative so far. Her WBC count is however is a little higher at 15.2. Possibly reactive. Pt still continues to have vaginal bleeding even though she is on provera. I am a little concerned because pt has had thrombotic episodes when she was not on anticoagulants, She is immobilized at this time and really needs to be on the Eliquis, but we cannot do so if she continues to have vaginal bleeding. Will discuss with CUSTODIAN MANAGER re same. Her HGb is 8.0 and she will receive 2 units of packed cells with dialysis today. Objective - Vital Signs/Intake and Output Vital Signs (last 24 hours): Temp Pulse Resp BP Pulse Ox 97.8 F 105 H 20 119/65 97 10/04/16 01:00 10/04/16 01:00 10/04/16 01:00 10/04/16 01:00 10/03/16 16:05 - Medications Medications: Current Medications Acetaminophen (Tylenol 325mg Tab) 650 mg PO Q4 PRN PRN Reason: Fever >100.4 F Last Admin: 10/02/16 16:27 Dose: 650 mg Acetaminophen (Tylenol 325mg Tab) 650 mg PO Q4 PRN PRN Reason: Pain, moderate (4-7) Last Admin: 09/16/16 22:34 Dose: 650 mg Albuterol Sulfate (Albuterol 0.083% Inhal Barbie (2.5 Mg/3 Ml) Ud) 2.5 mg INH RQ4 PRN PRN Reason: Shortness of Breath Albuterol/Ipratropium (Duoneb 3 Mg/0.5 Mg (3 Ml) Ud) 3 ml INH RQ4 PRN PRN Reason: Shortness of Breath Apixaban (Eliquis) 5 mg PO BID [facility] PRN Reason: Protocol Last Admin: 09/30/16 16:52 Dose: Not Given Aspirin (Ecotrin) 81 mg PO DAILY [facility] Last Admin: 10/03/16 10:31 Dose: 81 mg Atorvastatin Calcium (Lipitor) 40 mg PO DAILY [facility] Last Admin: 10/03/16 09:05 Dose: 40 mg Benzonatate (Tessalon Perles) 200 mg PO TID PRN PRN Reason: Cough Last Admin: 10/02/16 14:07 Dose: 200 mg Cinacalcet (Sensipar) 30 mg PO DAILY [facility] Last Admin: 10/03/16 09:04 Dose: 30 mg Diphenhydramine HCl (Benadryl) 25 mg PO Q6 PRN PRN Reason: Itching / Pruritus Epoetin Tha (Procrit) 20,000 unit IV [facility] Last Admin: 10/02/16 09:12 Dose: 20,000 unit Ergocalciferol (Drisdol 50,000 Intl Units Cap) 1 cap PO Q7D [facility] Stop: 11/06/16 11:16 Last Admin: 10/02/16 14:06 Dose: 1 cap Fluconazole (Diflucan) 100 mg PO DAILY [facility] Last Admin: 10/03/16 09:00 Dose: 100 mg Gabapentin (Neurontin) 300 mg PO TID [facility] Last Admin: 10/03/16 18:15 Dose: 300 mg Hydrocortisone (Anusol-Hc) 1 applic [place] BID [facility] Last Admin: 10/03/16 19:32 Dose: 1 applic Hydromorphone HCl (Dilaudid) 4 mg PO Q3H PRN PRN Reason: Pain, severe (8-10) Last Admin: 10/04/16 04:53 Dose: 4 mg Hydromorphone HCl (Dilaudid) 2 mg IVP Q2H PRN PRN Reason: Pain, severe (8-10) Hydromorphone HCl (Dilaudid) 1 mg IVP Q3H PRN PRN Reason: Pain, severe (8-10) Last Admin: 10/04/16 04:54 Dose: 1 mg Amikacin Sulfate 250 mg/ (Sodium Chloride) 101 mls @ 100.609 mls/hr IVPB MWF [facility] Last Admin: 10/02/16 13:01 Dose: 100.609 mls/hr Linezolid (Zyvox 600mg/300ml D5w) 600 mg in 300 mls @ 300 mls/hr IVPB Q12@0400, 1600 [facility] Last Admin: 10/04/16 03:59 Dose: 300 mls/hr Meropenem 500 mg/ Sodium (Chloride) 100 mls @ 100 mls/hr IVPB DAILY@0100 [facility] Last Admin: 10/04/16 01:04 Dose: 100 mls/hr Piperacillin Sod/Tazobactam (Sod 2.25 gm/ Sodium Chloride) 100 mls @ 100 mls/ hr IVPB Q12@0600,1800 [facility] Last Admin: 10/04/16 06:15 Dose: 100 mls/hr Sodium Chloride (Sodium Chloride 0.9%) 1,000 mls @ 10 mls/hr IV .Q24H [facility] Last Admin: 10/02/16 18:49 Dose: Not Given Insulin Detemir (Levemir) 30 units SC HS [facility] Last Admin: 10/03/16 22:06 Dose: 30 units Insulin Human Lispro (Humalog) 8 units SC AC [facility] Last Admin: 10/03/16 16:30 Dose: 8 units Lidocaine (Lidoderm) 1 ea TD DAILY [facility] Last Admin: 10/03/16 09:01 Dose: 1 ea Medroxyprogesterone Acetate (Provera) 10 mg PO DAILY [facility] Last Admin: 10/03/16 09:04 Dose: 10 mg Nystatin (Mycostatin Oint) 1 applic TOP TID [facility] Last Admin: 10/03/16 18:12 Dose: 1 applic Ondansetron HCl (Zofran Inj) 4 mg IVP Q6 PRN PRN Reason: Nausea/Vomiting Last Admin: 09/19/16 10:26 Dose: 4 mg Pantoprazole Sodium (Protonix Ec Tab) 40 mg PO DAILY [facility] Last Admin: 10/03/16 09:02 Dose: 40 mg Sevelamer HCl (Renagel) 1,600 mg PO TID [facility] Last Admin: 10/03/16 18:15 Dose: 1,600 mg Topiramate (Topamax) 50 mg PO BID [facility] Last Admin: 10/03/16 17:00 Dose: 50 mg Vitamin B Complex/Vit C/Folic Acid (Nephro-Ajay) 1 tab PO DAILY [facility] Last Admin: 10/03/16 09:02 Dose: 1 tab - Labs Labs: 10/04/16 06:45 10/04/16 06:45 PT 13.0 SECONDS (9.6-11.2) H 09/29/16 05:30 INR 1.25 (0.92-1.08) H 09/29/16 05:30 APTT 32.5 SECONDS (23.3-32.5) 09/29/16 05:30
--- NOTE | 2016-10-04 08:40 | CP.PCM.PN ---
Subjective - Date & Time of Evaluation Date of Evaluation: 10/04/16 Time of Evaluation: 08:36 - Subjective Subjective: Vascular Surgery - Dr. Mccormack PT [facility]. Pt states her pain has been well controlled. She is working with physical therapy and doing exercises. She is using incentive spirometer. R stump dressing C/D/I with knee immobilizer in place. Objective - Vital Signs/Intake and Output Vital Signs (last 24 hours): Temp Pulse Resp BP Pulse Ox 98.1 F 69 20 109/58 L 97 10/04/16 08:25 10/04/16 08:25 10/04/16 08:25 10/04/16 08:25 10/04/16 08:25 - Medications Medications: Current Medications Acetaminophen (Tylenol 325mg Tab) 650 mg PO Q4 PRN PRN Reason: Fever >100.4 F Last Admin: 10/02/16 16:27 Dose: 650 mg Acetaminophen (Tylenol 325mg Tab) 650 mg PO Q4 PRN PRN Reason: Pain, moderate (4-7) Last Admin: 09/16/16 22:34 Dose: 650 mg Albuterol Sulfate (Albuterol 0.083% Inhal Barbie (2.5 Mg/3 Ml) Ud) 2.5 mg INH RQ4 PRN PRN Reason: Shortness of Breath Albuterol/Ipratropium (Duoneb 3 Mg/0.5 Mg (3 Ml) Ud) 3 ml INH RQ4 PRN PRN Reason: Shortness of Breath Apixaban (Eliquis) 5 mg PO BID [facility] PRN Reason: Protocol Last Admin: 09/30/16 16:52 Dose: Not Given Aspirin (Ecotrin) 81 mg PO DAILY [facility] Last Admin: 10/03/16 10:31 Dose: 81 mg Atorvastatin Calcium (Lipitor) 40 mg PO DAILY [facility] Last Admin: 10/03/16 09:05 Dose: 40 mg Benzonatate (Tessalon Perles) 200 mg PO TID PRN PRN Reason: Cough Last Admin: 10/02/16 14:07 Dose: 200 mg Cinacalcet (Sensipar) 30 mg PO DAILY [facility] Last Admin: 10/03/16 09:04 Dose: 30 mg Diphenhydramine HCl (Benadryl) 25 mg PO Q6 PRN PRN Reason: Itching / Pruritus Epoetin Tha (Procrit) 20,000 unit IV [facility] [place] [place] Last Admin: 10/02/16 09:12 Dose: 20,000 unit Ergocalciferol (Drisdol 50,000 Intl Units Cap) 1 cap PO Q7D [facility] Stop: 11/06/16 11:16 Last Admin: 10/02/16 14:06 Dose: 1 cap Fluconazole (Diflucan) 100 mg PO DAILY [facility] Last Admin: 10/03/16 09:00 Dose: 100 mg Gabapentin (Neurontin) 300 mg PO TID [facility] Last Admin: 10/03/16 18:15 Dose: 300 mg Hydrocortisone (Anusol-Hc) 1 applic [place] BID [facility] Last Admin: 10/03/16 19:32 Dose: 1 applic Hydromorphone HCl (Dilaudid) 4 mg PO Q3H PRN PRN Reason: Pain, severe (8-10) Last Admin: 10/04/16 04:53 Dose: 4 mg Hydromorphone HCl (Dilaudid) 2 mg IVP Q2H PRN PRN Reason: Pain, severe (8-10) Hydromorphone HCl (Dilaudid) 1 mg IVP Q3H PRN PRN Reason: Pain, severe (8-10) Last Admin: 10/04/16 04:54 Dose: 1 mg Amikacin Sulfate 250 mg/ (Sodium Chloride) 101 mls @ 100.609 mls/hr IVPB [facility] [place] Last Admin: 10/02/16 13:01 Dose: 100.609 mls/hr Linezolid (Zyvox 600mg/300ml D5w) 600 mg in 300 mls @ 300 mls/hr IVPB Q12@0400, 1600 [facility] Last Admin: 10/04/16 03:59 Dose: 300 mls/hr Meropenem 500 mg/ Sodium (Chloride) 100 mls @ 100 mls/hr IVPB DAILY@0100 [facility] Last Admin: 10/04/16 01:04 Dose: 100 mls/hr Piperacillin Sod/Tazobactam (Sod 2.25 gm/ Sodium Chloride) 100 mls @ 100 mls/ hr IVPB Q12@0600,1800 [facility] Last Admin: 10/04/16 06:15 Dose: 100 mls/hr Sodium Chloride (Sodium Chloride 0.9%) 1,000 mls @ 10 mls/hr IV .Q24H [facility] Last Admin: 10/02/16 18:49 Dose: Not Given Insulin Detemir (Levemir) 30 units SC HS [facility] Last Admin: 10/03/16 22:06 Dose: 30 units Insulin Human Lispro (Humalog) 8 units SC AC [facility] Last Admin: 10/03/16 16:30 Dose: 8 units Lidocaine (Lidoderm) 1 ea TD DAILY [facility] Last Admin: 10/03/16 09:01 Dose: 1 ea Medroxyprogesterone Acetate (Provera) 10 mg PO DAILY [facility] Last Admin: 10/03/16 09:04 Dose: 10 mg Nystatin (Mycostatin Oint) 1 applic TOP TID [facility] Last Admin: 10/03/16 18:12 Dose: 1 applic Ondansetron HCl (Zofran Inj) 4 mg IVP Q6 PRN PRN Reason: Nausea/Vomiting Last Admin: 09/19/16 10:26 Dose: 4 mg Pantoprazole Sodium (Protonix Ec Tab) 40 mg PO DAILY [facility] Last Admin: 10/03/16 09:02 Dose: 40 mg Sevelamer HCl (Renagel) 1,600 mg PO TID [facility] Last Admin: 10/03/16 18:15 Dose: 1,600 mg Topiramate (Topamax) 50 mg PO BID [facility] Last Admin: 10/03/16 17:00 Dose: 50 mg Vitamin B Complex/Vit C/Folic Acid (Nephro-Ajay) 1 tab PO DAILY [facility] Last Admin: 10/03/16 09:02 Dose: 1 tab - Labs Labs: 10/04/16 06:45 10/04/16 06:45 PT 13.0 SECONDS (9.6-11.2) H 09/29/16 05:30 INR 1.25 (0.92-1.08) H 09/29/16 05:30 APTT 32.5 SECONDS (23.3-32.5) 09/29/16 05:30 - Constitutional Appears: No Acute Distress - Head Exam Head Exam: ATRAUMATIC, NORMAL INSPECTION, NORMOCEPHALIC - Eye Exam Eye Exam: Normal appearance - Respiratory Exam Respiratory Exam: NORMAL BREATHING PATTERN. absent: Respiratory Distress - Cardiovascular Exam Cardiovascular Exam: Tachycardia - Extremities Exam Extremities Exam: absent: Tenderness Additional comments: s/p B/L BKA, R stump dressing C/D/I with knee immobilizer in place - Neurological Exam Neurological Exam: Alert, Oriented x3 - Psychiatric Exam Psychiatric exam: Normal Affect, Normal Mood - Skin Skin Exam: Dry, Intact Assessment and Plan - Assessment and Plan (Free Text) Assessment: 46F s/p Right BKA POD#3 -Renal diet -Continue pain control prn -Hgb 8.0 today - pt still with vaginal bleeding and Eliquis remains held, per Dr. Shepard will recieve 2u pRBC with dialysis today -Continue knee immobilizer to R stump -PT/OT DW Dr. Easton Desai PGY2
[2016-10-04] MEDS: Lidocaine 5% Patch TD SCH ×2 (08:45→08:54)
[2016-10-04] MEDS: Insulin Lispro (humaLOG) 100 Units/ml Inj SC SCH ×3 (08:48→18:56)
[2016-10-04] MEDS: Hydrocortisone 2.5% (Rectal) CREAM PR SCH ×2 (08:52→17:24)
[2016-10-04] MEDS: Pantoprazole 40 mg EC Tab PO SCH (08:53)
[2016-10-04] MEDS: Multivitamin Vitamin B Complex (Nephro-Vite) Tab PO SCH (08:53)
[2016-10-04] MEDS: Nystatin Ointment TOP SCH ×3 (08:55→17:24)
--- NOTE | 2016-10-04 09:10 | CP.PCM.PN ---
Subjective - Date & Time of Evaluation Date of Evaluation: 10/04/16 Time of Evaluation: 09:02 - Subjective Subjective: s/p BKA and vaginal bleeding must likely secondary to long-term anticoagulants and endstage renal disease Objective - Vital Signs/Intake and Output Vital Signs (last 24 hours): Temp Pulse Resp BP Pulse Ox 98.1 F 69 20 109/58 L 97 10/04/16 08:25 10/04/16 08:25 10/04/16 08:25 10/04/16 08:25 10/04/16 08:25 - Medications Medications: Current Medications Acetaminophen (Tylenol 325mg Tab) 650 mg PO Q4 PRN PRN Reason: Fever >100.4 F Last Admin: 10/02/16 16:27 Dose: 650 mg Acetaminophen (Tylenol 325mg Tab) 650 mg PO Q4 PRN PRN Reason: Pain, moderate (4-7) Last Admin: 09/16/16 22:34 Dose: 650 mg Albuterol Sulfate (Albuterol 0.083% Inhal Barbie (2.5 Mg/3 Ml) Ud) 2.5 mg INH RQ4 PRN PRN Reason: Shortness of Breath Albuterol/Ipratropium (Duoneb 3 Mg/0.5 Mg (3 Ml) Ud) 3 ml INH RQ4 PRN PRN Reason: Shortness of Breath Apixaban (Eliquis) 5 mg PO BID [facility] PRN Reason: Protocol Last Admin: 09/30/16 16:52 Dose: Not Given Aspirin (Ecotrin) 81 mg PO DAILY [facility] Last Admin: 10/04/16 08:56 Dose: 81 mg Atorvastatin Calcium (Lipitor) 40 mg PO DAILY [facility] Last Admin: 10/04/16 08:55 Dose: 40 mg Benzonatate (Tessalon Perles) 200 mg PO TID PRN PRN Reason: Cough Last Admin: 10/02/16 14:07 Dose: 200 mg Cinacalcet (Sensipar) 30 mg PO DAILY [facility] Last Admin: 10/04/16 08:53 Dose: 30 mg Diphenhydramine HCl (Benadryl) 25 mg PO Q6 PRN PRN Reason: Itching / Pruritus Epoetin Tha (Procrit) 20,000 unit IV MWF [facility] Last Admin: 10/02/16 09:12 Dose: 20,000 unit Ergocalciferol (Drisdol 50,000 Intl Units Cap) 1 cap PO Q7D [facility] Stop: 11/06/16 11:16 Last Admin: 10/02/16 14:06 Dose: 1 cap Fluconazole (Diflucan) 100 mg PO DAILY [facility] Last Admin: 10/03/16 09:00 Dose: 100 mg Gabapentin (Neurontin) 300 mg PO TID [facility] Last Admin: 10/04/16 08:53 Dose: 300 mg Hydrocortisone (Anusol-Hc) 1 applic [place] BID [facility] Last Admin: 10/04/16 08:52 Dose: 1 applic Hydromorphone HCl (Dilaudid) 4 mg PO Q3H PRN PRN Reason: Pain, severe (8-10) Last Admin: 10/04/16 08:43 Dose: 4 mg Hydromorphone HCl (Dilaudid) 2 mg IVP Q2H PRN PRN Reason: Pain, severe (8-10) Hydromorphone HCl (Dilaudid) 1 mg IVP Q3H PRN PRN Reason: Pain, severe (8-10) Last Admin: 10/04/16 08:42 Dose: 1 mg Amikacin Sulfate 250 mg/ (Sodium Chloride) 101 mls @ 100.609 mls/hr IVPB MWF [facility] Last Admin: 10/02/16 13:01 Dose: 100.609 mls/hr Linezolid (Zyvox 600mg/300ml D5w) 600 mg in 300 mls @ 300 mls/hr IVPB Q12@0400, 1600 [facility] Last Admin: 10/04/16 03:59 Dose: 300 mls/hr Meropenem 500 mg/ Sodium (Chloride) 100 mls @ 100 mls/hr IVPB DAILY@0100 [facility] Last Admin: 10/04/16 01:04 Dose: 100 mls/hr Piperacillin Sod/Tazobactam (Sod 2.25 gm/ Sodium Chloride) 100 mls @ 100 mls/ hr IVPB Q12@0600,1800 [facility] Last Admin: 10/04/16 06:15 Dose: 100 mls/hr Sodium Chloride (Sodium Chloride 0.9%) 1,000 mls @ 10 mls/hr IV .Q24H [facility] Last Admin: 10/02/16 18:49 Dose: Not Given Insulin Detemir (Levemir) 30 units SC HS [facility] Last Admin: 10/03/16 22:06 Dose: 30 units Insulin Human Lispro (Humalog) 8 units SC AC [facility] Last Admin: 10/04/16 08:48 Dose: 8 units Lidocaine (Lidoderm) 1 ea TD DAILY [facility] Last Admin: 10/04/16 08:54 Dose: 1 ea Medroxyprogesterone Acetate (Provera) 10 mg PO DAILY [facility] Last Admin: 10/04/16 08:54 Dose: 10 mg Nystatin (Mycostatin Oint) 1 applic TOP TID [facility] Last Admin: 10/04/16 08:55 Dose: 1 applic Ondansetron HCl (Zofran Inj) 4 mg IVP Q6 PRN PRN Reason: Nausea/Vomiting Last Admin: 09/19/16 10:26 Dose: 4 mg Pantoprazole Sodium (Protonix Ec Tab) 40 mg PO DAILY [facility] Last Admin: 10/04/16 08:53 Dose: 40 mg Sevelamer HCl (Renagel) 1,600 mg PO TID [facility] Last Admin: 10/04/16 08:52 Dose: 1,600 mg Topiramate (Topamax) 50 mg PO BID [facility] Last Admin: 10/04/16 08:53 Dose: 50 mg Vitamin B Complex/Vit C/Folic Acid (Nephro-Ajay) 1 tab PO DAILY [facility] Last Admin: 10/04/16 08:53 Dose: 1 tab - Labs Labs: 10/04/16 06:45 10/04/16 06:45 PT 13.0 SECONDS (9.6-11.2) H 09/29/16 05:30 INR 1.25 (0.92-1.08) H 09/29/16 05:30 APTT 32.5 SECONDS (23.3-32.5) 09/29/16 05:30 Assessment and Plan - Assessment and Plan (Free Text) Plan: 46 y/o female with multiple medical problems and hx of long-term blood thinners who has been seen by me in past due to DUB and treated medicallly but not responding this time Pt now s/p rt leg BKA and with infection Discussed with Dr Shepard and Dr Avilez and tried to come up with best solution to her problem Discussed short term possible D/C and endometrial ablation and long-term hysterectomy and best approach to this being robotic surgery. Pt now on antibiotics and will try to get her ready for possible D/C (therapeutic and diagnostic) and possible EA as soon as pt is able to undergo procedure
--- NOTE | 2016-10-04 09:26 | CP.PCM.PN ---
Subjective - Date & Time of Evaluation Date of Evaluation: 10/04/16 Time of Evaluation: 09:15 - Subjective Subjective: Has had vaginal bleeding abd severe "stump" pain, keeping pt from being OOB Hb down to 8.0 gms (Will be transfused todat) Afebrile and hemodynamically stable Scheduled for HD today Objective - Vital Signs/Intake and Output Vital Signs (last 24 hours): Temp Pulse Resp BP Pulse Ox 98.1 F 69 20 109/58 L 97 10/04/16 08:25 10/04/16 08:25 10/04/16 08:25 10/04/16 08:25 10/04/16 08:25 - Medications Medications: Current Medications Acetaminophen (Tylenol 325mg Tab) 650 mg PO Q4 PRN PRN Reason: Fever >100.4 F Last Admin: 10/02/16 16:27 Dose: 650 mg Acetaminophen (Tylenol 325mg Tab) 650 mg PO Q4 PRN PRN Reason: Pain, moderate (4-7) Last Admin: 09/16/16 22:34 Dose: 650 mg Albuterol Sulfate (Albuterol 0.083% Inhal Barbie (2.5 Mg/3 Ml) Ud) 2.5 mg INH RQ4 PRN PRN Reason: Shortness of Breath Albuterol/Ipratropium (Duoneb 3 Mg/0.5 Mg (3 Ml) Ud) 3 ml INH RQ4 PRN PRN Reason: Shortness of Breath Apixaban (Eliquis) 5 mg PO BID [facility] PRN Reason: Protocol Last Admin: 09/30/16 16:52 Dose: Not Given Aspirin (Ecotrin) 81 mg PO DAILY [facility] Last Admin: 10/04/16 08:56 Dose: 81 mg Atorvastatin Calcium (Lipitor) 40 mg PO DAILY [facility] Last Admin: 10/04/16 08:55 Dose: 40 mg Benzonatate (Tessalon Perles) 200 mg PO TID PRN PRN Reason: Cough Last Admin: 10/02/16 14:07 Dose: 200 mg Cinacalcet (Sensipar) 30 mg PO DAILY [facility] Last Admin: 10/04/16 08:53 Dose: 30 mg Diphenhydramine HCl (Benadryl) 25 mg PO Q6 PRN PRN Reason: Itching / Pruritus Epoetin Tha (Procrit) 20,000 unit IV MWF [facility] Last Admin: 10/02/16 09:12 Dose: 20,000 unit Ergocalciferol (Drisdol 50,000 Intl Units Cap) 1 cap PO Q7D [facility] Stop: 11/06/16 11:16 Last Admin: 10/02/16 14:06 Dose: 1 cap Fluconazole (Diflucan) 100 mg PO DAILY [facility] Last Admin: 10/04/16 09:06 Dose: 100 mg Gabapentin (Neurontin) 300 mg PO TID [facility] Last Admin: 10/04/16 08:53 Dose: 300 mg Hydrocortisone (Anusol-Hc) 1 applic [place] BID [facility] Last Admin: 10/04/16 08:52 Dose: 1 applic Hydromorphone HCl (Dilaudid) 4 mg PO Q3H PRN PRN Reason: Pain, severe (8-10) Last Admin: 10/04/16 08:43 Dose: 4 mg Hydromorphone HCl (Dilaudid) 2 mg IVP Q2H PRN PRN Reason: Pain, severe (8-10) Hydromorphone HCl (Dilaudid) 1 mg IVP Q3H PRN PRN Reason: Pain, severe (8-10) Last Admin: 10/04/16 08:42 Dose: 1 mg Amikacin Sulfate 250 mg/ (Sodium Chloride) 101 mls @ 100.609 mls/hr IVPB [facility] Last Admin: 10/04/16 09:05 Dose: 100.609 mls/hr Linezolid (Zyvox 600mg/300ml D5w) 600 mg in 300 mls @ 300 mls/hr IVPB Q12@0400, 1600 [facility] Last Admin: 10/04/16 03:59 Dose: 300 mls/hr Meropenem 500 mg/ Sodium (Chloride) 100 mls @ 100 mls/hr IVPB DAILY@0100 [facility] Last Admin: 10/04/16 01:04 Dose: 100 mls/hr Piperacillin Sod/Tazobactam (Sod 2.25 gm/ Sodium Chloride) 100 mls @ 100 mls/ hr IVPB Q12@0600,1800 [facility] Last Admin: 10/04/16 06:15 Dose: 100 mls/hr Sodium Chloride (Sodium Chloride 0.9%) 1,000 mls @ 10 mls/hr IV .Q24H [facility] Last Admin: 10/02/16 18:49 Dose: Not Given Insulin Detemir (Levemir) 30 units SC HS [facility] Last Admin: 10/03/16 22:06 Dose: 30 units Insulin Human Lispro (Humalog) 8 units SC AC [facility] Last Admin: 10/04/16 08:48 Dose: 8 units Lidocaine (Lidoderm) 1 ea TD DAILY [facility] Last Admin: 10/04/16 08:54 Dose: 1 ea Medroxyprogesterone Acetate (Provera) 10 mg PO DAILY [facility] Last Admin: 10/04/16 08:54 Dose: 10 mg Nystatin (Mycostatin Oint) 1 applic TOP TID [facility] Last Admin: 10/04/16 08:55 Dose: 1 applic Ondansetron HCl (Zofran Inj) 4 mg IVP Q6 PRN PRN Reason: Nausea/Vomiting Last Admin: 09/19/16 10:26 Dose: 4 mg Pantoprazole Sodium (Protonix Ec Tab) 40 mg PO DAILY [facility] Last Admin: 10/04/16 08:53 Dose: 40 mg Sevelamer HCl (Renagel) 1,600 mg PO TID [facility] Last Admin: 10/04/16 08:52 Dose: 1,600 mg Topiramate (Topamax) 50 mg PO BID [facility] Last Admin: 10/04/16 08:53 Dose: 50 mg Vitamin B Complex/Vit C/Folic Acid (Nephro-Ajay) 1 tab PO DAILY [facility] Last Admin: 10/04/16 08:53 Dose: 1 tab - Labs Labs: 10/04/16 06:45 10/04/16 06:45 PT 13.0 SECONDS (9.6-11.2) H 09/29/16 05:30 INR 1.25 (0.92-1.08) H 09/29/16 05:30 APTT 32.5 SECONDS (23.3-32.5) 09/29/16 05:30
--- NOTE | 2016-10-04 10:27 | CP.PCM.PN ---
Subjective - Date & Time of Evaluation Date of Evaluation: 10/04/16 Time of Evaluation: 10:26 - Subjective Subjective: Follow up Nephrology Consultation Note Assessment/Plan: End stage renal disease on hemodialysis (MWF) via permacath: Will plan for dialysis today as ordered. continue with Nephrovite 1 tab/day. Anemia: PRBC as needed. On MARTHA as Epogen 20,000 with HD. last Hb 8.0 TSAT 73% and ferritin >1000. Hyperphosphatemia: continue with current meds as renagel 1600 TID last phos level 5.0 Secondary hyperparathyroidism with Vit D Deficiency: continue with sensipar 30 mg/day. Last PTH level 423. Vit D <12. supplemented with ergo 50,000 weekly x 8 doses Hypertension controlled: BP mostly on low side Glycemic control, Dialysis consistent diet Further work up/management as per primary team. 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 Vaginal bleed, TANK CHARGER eval Dose meds/antibiotics for ESRD status. Avoid fleets enema/magnesium based laxatives. Thanks for allowing me to participate in care of your patient. Will follow patient with you. Please call if any Qs Dr Hernan Andino Office: [phone] Subjective: Noted events overnight. Denies chest pain, palpitation, shortness of breath. s/p Rt BKA, pain controlled at this time. Physical Examination: General Appearance: Comfortable, in no acute respiratory distress, co- operative. obese Vitals reviewed and noted as below Lungs: Normal respiratory rate/effort. Breath sounds bilateral equal and clear Heart: Normal rate. s1s2 normal. No rub or gallop. Extremities: s/p Rt BKA, hx of left BKA. Neurological: Patient is alert, awake and oriented to person, place and time. No focal deficit. Strength bilateral appropriate and equal Skin: Warm and dry. Normal turgor. No rash. Palpitation: Normal elasticity for age Abdomen: Abdomen is soft. Bowel sounds +. There is no abdominal tenderness, no guarding/rigidity or organomegaly. she is obese : kidney or bladder not palpable Access: permacath Labs/imaging reviewed. Past medical history, past surgical history, family history, social history, allergy reviewed Objective - Vital Signs/Intake and Output Vital Signs (last 24 hours): Temp Pulse Resp BP Pulse Ox 98.1 F 69 20 109/58 L 97 10/04/16 08:25 10/04/16 08:25 10/04/16 08:25 10/04/16 08:25 10/04/16 08:25 - Medications Medications: Current Medications Acetaminophen (Tylenol 325mg Tab) 650 mg PO Q4 PRN PRN Reason: Fever >100.4 F Last Admin: 10/02/16 16:27 Dose: 650 mg Acetaminophen (Tylenol 325mg Tab) 650 mg PO Q4 PRN PRN Reason: Pain, moderate (4-7) Last Admin: 09/16/16 22:34 Dose: 650 mg Albuterol Sulfate (Albuterol 0.083% Inhal Barbie (2.5 Mg/3 Ml) Ud) 2.5 mg INH RQ4 PRN PRN Reason: Shortness of Breath Albuterol/Ipratropium (Duoneb 3 Mg/0.5 Mg (3 Ml) Ud) 3 ml INH RQ4 PRN PRN Reason: Shortness of Breath Apixaban (Eliquis) 5 mg PO BID [facility] PRN Reason: Protocol Last Admin: 09/30/16 16:52 Dose: Not Given Aspirin (Ecotrin) 81 mg PO DAILY [facility] Last Admin: 10/04/16 08:56 Dose: 81 mg Atorvastatin Calcium (Lipitor) 40 mg PO DAILY [facility] Last Admin: 10/04/16 08:55 Dose: 40 mg Benzonatate (Tessalon Perles) 200 mg PO TID PRN PRN Reason: Cough Last Admin: 10/02/16 14:07 Dose: 200 mg Cinacalcet (Sensipar) 30 mg PO DAILY [facility] Last Admin: 10/04/16 08:53 Dose: 30 mg Diphenhydramine HCl (Benadryl) 25 mg PO Q6 PRN PRN Reason: Itching / Pruritus Epoetin Tha (Procrit) 20,000 unit IV MWF [facility] Last Admin: 10/02/16 09:12 Dose: 20,000 unit Ergocalciferol (Drisdol 50,000 Intl Units Cap) 1 cap PO Q7D [facility] Stop: 11/06/16 11:16 Last Admin: 10/02/16 14:06 Dose: 1 cap Fluconazole (Diflucan) 100 mg PO DAILY [facility] Last Admin: 10/04/16 09:06 Dose: 100 mg Gabapentin (Neurontin) 300 mg PO TID [facility] Last Admin: 10/04/16 08:53 Dose: 300 mg Hydrocortisone (Anusol-Hc) 1 applic [place] BID [facility] Last Admin: 10/04/16 08:52 Dose: 1 applic Hydromorphone HCl (Dilaudid) 4 mg PO Q3H PRN PRN Reason: Pain, severe (8-10) Last Admin: 10/04/16 08:43 Dose: 4 mg Hydromorphone HCl (Dilaudid) 2 mg IVP Q2H PRN PRN Reason: Pain, severe (8-10) Hydromorphone HCl (Dilaudid) 1 mg IVP Q3H PRN PRN Reason: Pain, severe (8-10) Last Admin: 10/04/16 08:42 Dose: 1 mg Amikacin Sulfate 250 mg/ (Sodium Chloride) 101 mls @ 100.609 mls/hr IVPB MWF [facility] Last Admin: 10/04/16 09:05 Dose: 100.609 mls/hr Linezolid (Zyvox 600mg/300ml D5w) 600 mg in 300 mls @ 300 mls/hr IVPB Q12@0400, 1600 [facility] Last Admin: 10/04/16 03:59 Dose: 300 mls/hr Meropenem 500 mg/ Sodium (Chloride) 100 mls @ 100 mls/hr IVPB DAILY@0100 [facility] Last Admin: 10/04/16 01:04 Dose: 100 mls/hr Piperacillin Sod/Tazobactam (Sod 2.25 gm/ Sodium Chloride) 100 mls @ 100 mls/ hr IVPB Q12@0600,1800 [facility] Last Admin: 10/04/16 06:15 Dose: 100 mls/hr Sodium Chloride (Sodium Chloride 0.9%) 1,000 mls @ 10 mls/hr IV .Q24H [facility] Last Admin: 10/02/16 18:49 Dose: Not Given Insulin Detemir (Levemir) 30 units SC HS [facility] Last Admin: 10/03/16 22:06 Dose: 30 units Insulin Human Lispro (Humalog) 8 units SC AC [facility] Last Admin: 10/04/16 08:48 Dose: 8 units Lidocaine (Lidoderm) 1 ea TD DAILY [facility] Last Admin: 10/04/16 08:54 Dose: 1 ea Medroxyprogesterone Acetate (Provera) 10 mg PO DAILY [facility] Last Admin: 10/04/16 08:54 Dose: 10 mg Nystatin (Mycostatin Oint) 1 applic TOP TID [facility] Last Admin: 10/04/16 08:55 Dose: 1 applic Ondansetron HCl (Zofran Inj) 4 mg IVP Q6 PRN PRN Reason: Nausea/Vomiting Last Admin: 09/19/16 10:26 Dose: 4 mg Pantoprazole Sodium (Protonix Ec Tab) 40 mg PO DAILY [facility] Last Admin: 10/04/16 08:53 Dose: 40 mg Sevelamer HCl (Renagel) 1,600 mg PO TID [facility] Last Admin: 10/04/16 08:52 Dose: 1,600 mg Topiramate (Topamax) 50 mg PO BID [facility] Last Admin: 10/04/16 08:53 Dose: 50 mg Vitamin B Complex/Vit C/Folic Acid (Nephro-Ajay) 1 tab PO DAILY [facility] Last Admin: 10/04/16 08:53 Dose: 1 tab - Labs Labs: 10/04/16 06:45 10/04/16 06:45 PT 13.0 SECONDS (9.6-11.2) H 09/29/16 05:30 INR 1.25 (0.92-1.08) H 09/29/16 05:30 APTT 32.5 SECONDS (23.3-32.5) 09/29/16 05:30
--- NOTE | 2016-10-04 12:45 | PN ---
DATE: 10/04/2016 ROOM: 663 This is a 46-year-old female with recent uncontrolled type 2 insulin-requiring diabetes, now being fo llowed closely for metabolic management. Her glycemic levels are fluctuating, especially postoperati vely as she underwent a right below knee amputation for an underlying severe right heel osteomyelitis with underlying severe peripheral arterial vasculopathy as noted. Her latest chemistries showed a BUN of 27, sodium 136, potassium 3.9, chloride 97, CO2 24, glucose 30 8 and creatinine 6.1. So at this time, we will modify her basal and bolus insulin regimen and increase the Humalog to 10 un its subQ t.i.d. before meals as ordered. We will also increase the basal insulin with Levemir to be given as 34 units subQ at bedtime daily as given. We will obtain serial chemistries and supplement a ccordingly as needed. We will titrate incrementally as indicated to optimize metabolic control, nara cially with this postoperative state and increased insulin resistance thereof. We will follow. Irene Ambrose MD cc: [id number] TT: 10/04/2016 12:44:41 Confirmation # [id number] Dictation # [id number]
[2016-10-04] MEDS: Epoetin Alfa 20000 UNIT/ML Inj IV SCH (15:33)
--- NOTE | 2016-10-04 17:07 | CP.PCM.PN ---
Subjective - Date & Time of Evaluation Date of Evaluation: 10/04/16 Time of Evaluation: 16:31 - Subjective Subjective: Post-Op Day # 3 S/P right RK amputation. Pain is managed with iv plus po Dilaudid. R residual limb is surgically wrapped , dressing are dry and intact. No fevers. The physical and occupation therapy team has been doing a great job of getting her out of bed, strengthening the hands and left residual leg. They are encouraging her to move in bed as well. PATHOLOGY REPORT by Dr. Bonner showed the following: (1) Osteomyelitis of the right lateral malleolus with a pocket of reddish pus and (2) necrosis of soft tissue of heel with what appear to be fungal elements. (3) Markedly stenotis blood vessels (>90 %) (4) Markedly ischemic muscle (5) The muscle and other tissues at the limb resection margin appeared viable. Cultures of the right foot (bone, muscle, tissue) for aerobes, anaerobes, and fungi are still pending. Discussed with Dr. Lemon. Will continue current IV antibiotics (Zyvox, Zosyn, meropenem and amikacin) and po Diflucan. Patient will probably need a 4-6 week course of antibiotics because of the documented osteomyelitis. DM II - Note by Dr. Ambrose with insulin adjustments appreciated. Dr. Shepard's note appreciated. Patient is back on Eliquis and ASA. Tolerating hemodialysis 3x/wk. Anemia - multifactorial - receiving 2 units of rbc's today for Hgb 8. Prolonged vaginal bleeding is a real concern. This is not responding to Provera , and that may indicate a serious problem. See Dr. Larry's professional services specialist consult note. Acc to Dr. Lemon, the antibiotic coverage that the patient is currently receiving should be able to protect her for a D & C and endometrial ablation. Dr. Larry is planning to do this next Friday, October 11. so long as the right residual leg is healing and there are no new sites of infection. Ultimately a hysterectomy will be necessary. Buttock lesion is just about healed acc to wound care nurse. Objective - Vital Signs/Intake and Output Vital Signs (last 24 hours): Temp Pulse Resp BP Pulse Ox 98.1 F 121 H 20 130/39 L 98 10/04/16 16:17 10/04/16 16:17 10/04/16 16:17 10/04/16 16:17 10/04/16 16:17 - Medications Medications: Current Medications Acetaminophen (Tylenol 325mg Tab) 650 mg PO Q4 PRN PRN Reason: Fever >100.4 F Last Admin: 10/02/16 16:27 Dose: 650 mg Acetaminophen (Tylenol 325mg Tab) 650 mg PO Q4 PRN PRN Reason: Pain, moderate (4-7) Last Admin: 09/16/16 22:34 Dose: 650 mg Albuterol Sulfate (Albuterol 0.083% Inhal Barbie (2.5 Mg/3 Ml) Ud) 2.5 mg INH RQ4 PRN PRN Reason: Shortness of Breath Albuterol/Ipratropium (Duoneb 3 Mg/0.5 Mg (3 Ml) Ud) 3 ml INH RQ4 PRN PRN Reason: Shortness of Breath Apixaban (Eliquis) 5 mg PO BID [facility] PRN Reason: Protocol Aspirin (Ecotrin) 81 mg PO DAILY [facility] Last Admin: 10/04/16 08:56 Dose: 81 mg Atorvastatin Calcium (Lipitor) 40 mg PO DAILY [facility] Last Admin: 10/04/16 08:55 Dose: 40 mg Benzonatate (Tessalon Perles) 200 mg PO TID PRN PRN Reason: Cough Last Admin: 10/02/16 14:07 Dose: 200 mg Cinacalcet (Sensipar) 30 mg PO DAILY [facility] Last Admin: 10/04/16 08:53 Dose: 30 mg Diphenhydramine HCl (Benadryl) 25 mg PO Q6 PRN PRN Reason: Itching / Pruritus Epoetin Tha (Procrit) 20,000 unit IV MWF [facility] Last Admin: 10/04/16 15:33 Dose: 20,000 unit Ergocalciferol (Drisdol 50,000 Intl Units Cap) 1 cap PO Q7D [facility] Stop: 11/06/16 11:16 Last Admin: 10/02/16 14:06 Dose: 1 cap Fluconazole (Diflucan) 100 mg PO DAILY [facility] Last Admin: 10/04/16 09:06 Dose: 100 mg Gabapentin (Neurontin) 300 mg PO TID [facility] Last Admin: 10/04/16 13:39 Dose: 300 mg Hydrocortisone (Anusol-Hc) 1 applic DC BID [facility] Last Admin: 10/04/16 08:52 Dose: 1 applic Hydromorphone HCl (Dilaudid) 4 mg PO Q3H PRN PRN Reason: Pain, severe (8-10) Last Admin: 10/04/16 12:43 Dose: 4 mg Hydromorphone HCl (Dilaudid) 1 mg IVP Q3H PRN PRN Reason: Pain, severe (8-10) Last Admin: 10/04/16 12:42 Dose: 1 mg Amikacin Sulfate 250 mg/ (Sodium Chloride) 101 mls @ 100.609 mls/hr IVPB MWF [facility] Last Admin: 10/04/16 09:05 Dose: 100.609 mls/hr Linezolid (Zyvox 600mg/300ml D5w) 600 mg in 300 mls @ 300 mls/hr IVPB Q12@0400, 1600 [facility] Last Admin: 10/04/16 03:59 Dose: 300 mls/hr Meropenem 500 mg/ Sodium (Chloride) 100 mls @ 100 mls/hr IVPB DAILY@0100 [facility] Last Admin: 10/04/16 01:04 Dose: 100 mls/hr Piperacillin Sod/Tazobactam (Sod 2.25 gm/ Sodium Chloride) 100 mls @ 100 mls/ hr IVPB Q12@0600,1800 [facility] Last Admin: 10/04/16 06:15 Dose: 100 mls/hr Sodium Chloride (Sodium Chloride 0.9%) 1,000 mls @ 10 mls/hr IV .Q24H [facility] Last Admin: 10/02/16 18:49 Dose: Not Given Insulin Detemir (Levemir) 34 units SC HS [facility] Insulin Human Lispro (Humalog) 10 units SC AC [facility] Lidocaine (Lidoderm) 1 ea TD DAILY [facility] Last Admin: 10/04/16 08:45 Dose: Not Given Medroxyprogesterone Acetate (Provera) 10 mg PO DAILY [facility] Last Admin: 10/04/16 08:54 Dose: 10 mg Nystatin (Mycostatin Oint) 1 applic TOP TID [facility] Last Admin: 10/04/16 13:40 Dose: 1 applic Ondansetron HCl (Zofran Inj) 4 mg IVP Q6 PRN PRN Reason: Nausea/Vomiting Last Admin: 09/19/16 10:26 Dose: 4 mg Pantoprazole Sodium (Protonix Ec Tab) 40 mg PO DAILY [facility] Last Admin: 10/04/16 08:53 Dose: 40 mg Sevelamer HCl (Renagel) 1,600 mg PO TID [facility] Last Admin: 10/04/16 13:40 Dose: 1,600 mg Topiramate (Topamax) 50 mg PO BID [facility] Last Admin: 10/04/16 08:53 Dose: 50 mg Vitamin B Complex/Vit C/Folic Acid (Nephro-Ajay) 1 tab PO DAILY [facility] Last Admin: 10/04/16 08:53 Dose: 1 tab - Labs Labs: 10/04/16 06:45 10/04/16 06:45 PT 13.0 SECONDS (9.6-11.2) H 09/29/16 05:30 INR 1.25 (0.92-1.08) H 09/29/16 05:30 APTT 32.5 SECONDS (23.3-32.5) 09/29/16 05:30 - Constitutional Appears: No Acute Distress - Head Exam Head Exam: NORMAL INSPECTION - Eye Exam Eye Exam: Normal appearance - ENT Exam ENT Exam: Mucous Membranes Moist - Neck Exam Neck Exam: Normal Inspection Additional comments: R subclavian Permacath intact. - Respiratory Exam Respiratory Exam: Clear to Ausculation Bilateral, NORMAL BREATHING PATTERN - Cardiovascular Exam Cardiovascular Exam: REGULAR RHYTHM, +S1, +S2 - GI/Abdominal Exam GI & Abdominal Exam: Soft, Normal Bowel Sounds - Extremities Exam Additional comments: See Subjective. - Back Exam Back Exam: NORMAL INSPECTION - Neurological Exam Neurological Exam: Alert, Awake, CN II-XII Intact, Oriented x3 - Psychiatric Exam Psychiatric exam: Normal Affect, Normal Mood Assessment and Plan (1) Osteomyelitis of ankle or foot Assessment & Plan: SEE SUBJECTIVE Status: Acute (2) ESRD (end stage renal disease) on dialysis Status: Chronic (3) DM type 2 (diabetes mellitus, type 2) Assessment & Plan: SEE SUBJECTIVE Status: Chronic (4) Coagulopathy Assessment & Plan: SEE SUBJECTIVE Status: Chronic (5) Peripheral arterial occlusive disease Status: Chronic (6) Anemia, blood loss Assessment & Plan: SEE SUBJECTIVE Status: Acute
[2016-10-04] MEDS: Sodium Chloride 0.9% 1,000 ML IV SCH ×2 (18:55→19:41)
--- NOTE | 2016-10-04 21:58 | CP.PCM.PN ---
Subjective - Date & Time of Evaluation Date of Evaluation: 10/04/16 Time of Evaluation: 19:15 - Subjective Subjective: Patient is receiving Antibiotics for 6 more weeks due to the PATHOLOGY findings. PATHOLOGY REPORT by Dr. Bonner showed the following: (1) Osteomyelitis of the right lateral malleolus with a pocket of reddish pus (2) necrosis of soft tissue of heel with what appear to be fungal elements. (3) Markedly stenotis blood vessels (>90 %) (4) Markedly ischemic muscle (5) The muscle and other tissues at the limb resection margin appeared viable. She is still in pain in her Right leg site. Objective - Vital Signs/Intake and Output Vital Signs (last 24 hours): Temp Pulse Resp BP Pulse Ox 98.1 F 121 H 20 130/39 L 98 10/04/16 16:17 10/04/16 16:17 10/04/16 16:17 10/04/16 16:17 10/04/16 16:17 - Medications Medications: Current Medications Acetaminophen (Tylenol 325mg Tab) 650 mg PO Q4 PRN PRN Reason: Fever >100.4 F Last Admin: 10/02/16 16:27 Dose: 650 mg Acetaminophen (Tylenol 325mg Tab) 650 mg PO Q4 PRN PRN Reason: Pain, moderate (4-7) Last Admin: 09/16/16 22:34 Dose: 650 mg Albuterol Sulfate (Albuterol 0.083% Inhal Barbie (2.5 Mg/3 Ml) Ud) 2.5 mg INH RQ4 PRN PRN Reason: Shortness of Breath Albuterol/Ipratropium (Duoneb 3 Mg/0.5 Mg (3 Ml) Ud) 3 ml INH RQ4 PRN PRN Reason: Shortness of Breath Apixaban (Eliquis) 5 mg PO BID [facility] PRN Reason: Protocol Aspirin (Ecotrin) 81 mg PO DAILY [facility] Last Admin: 10/04/16 08:56 Dose: 81 mg Atorvastatin Calcium (Lipitor) 40 mg PO DAILY [facility] Last Admin: 10/04/16 08:55 Dose: 40 mg Benzonatate (Tessalon Perles) 200 mg PO TID PRN PRN Reason: Cough Last Admin: 10/02/16 14:07 Dose: 200 mg Cinacalcet (Sensipar) 30 mg PO DAILY [facility] Last Admin: 10/04/16 08:53 Dose: 30 mg Diphenhydramine HCl (Benadryl) 25 mg PO Q6 PRN PRN Reason: Itching / Pruritus Epoetin Tha (Procrit) 20,000 unit IV [facility] [place] Last Admin: 10/04/16 15:33 Dose: 20,000 unit Ergocalciferol (Drisdol 50,000 Intl Units Cap) 1 cap PO Q7D [facility] Stop: 11/06/16 11:16 Last Admin: 10/02/16 14:06 Dose: 1 cap Fluconazole (Diflucan) 100 mg PO DAILY [facility] Last Admin: 10/04/16 09:06 Dose: 100 mg Gabapentin (Neurontin) 300 mg PO TID [facility] Last Admin: 10/04/16 17:25 Dose: 300 mg Hydrocortisone (Anusol-Hc) 1 applic CA BID [facility] Last Admin: 10/04/16 17:24 Dose: 1 applic Hydromorphone HCl (Dilaudid) 4 mg PO Q3H PRN PRN Reason: Pain, severe (8-10) Last Admin: 10/04/16 21:00 Dose: 4 mg Hydromorphone HCl (Dilaudid) 1 mg IVP Q3H PRN PRN Reason: Pain, severe (8-10) Last Admin: 10/04/16 21:03 Dose: 1 mg Amikacin Sulfate 250 mg/ (Sodium Chloride) 101 mls @ 100.609 mls/hr IVPB [facility] [place] Last Admin: 10/04/16 09:05 Dose: 100.609 mls/hr Meropenem 500 mg/ Sodium (Chloride) 100 mls @ 100 mls/hr IVPB DAILY@0100 [facility] Last Admin: 10/04/16 01:04 Dose: 100 mls/hr Piperacillin Sod/Tazobactam (Sod 2.25 gm/ Sodium Chloride) 100 mls @ 100 mls/ hr IVPB Q12@0600,1800 [facility] Last Admin: 10/04/16 18:55 Dose: 100 mls/hr Sodium Chloride (Sodium Chloride 0.9%) 1,000 mls @ 10 mls/hr IV .Q24H [facility] Last Admin: 10/04/16 19:41 Dose: 10 mls/hr Linezolid (Zyvox 600mg/300ml D5w) 600 mg in 300 mls @ 300 mls/hr IVPB Q12@0800, 2000 [facility] Last Admin: 10/04/16 20:52 Dose: 300 mls/hr Insulin Detemir (Levemir) 34 units SC HS [facility] Insulin Human Lispro (Humalog) 10 units SC AC [facility] Last Admin: 10/04/16 18:56 Dose: 10 unit Lidocaine (Lidoderm) 1 ea TD DAILY [facility] Last Admin: 10/04/16 08:45 Dose: Not Given Medroxyprogesterone Acetate (Provera) 10 mg PO DAILY [facility] Last Admin: 10/04/16 08:54 Dose: 10 mg Nystatin (Mycostatin Oint) 1 applic TOP TID [facility] Last Admin: 10/04/16 17:24 Dose: 1 applic Ondansetron HCl (Zofran Inj) 4 mg IVP Q6 PRN PRN Reason: Nausea/Vomiting Last Admin: 09/19/16 10:26 Dose: 4 mg Pantoprazole Sodium (Protonix Ec Tab) 40 mg PO DAILY [facility] Last Admin: 10/04/16 08:53 Dose: 40 mg Sevelamer HCl (Renagel) 1,600 mg PO TID [facility] Last Admin: 10/04/16 18:56 Dose: 1,600 mg Topiramate (Topamax) 50 mg PO BID [facility] Last Admin: 10/04/16 17:25 Dose: 50 mg Vitamin B Complex/Vit C/Folic Acid (Nephro-Ajay) 1 tab PO DAILY [facility] Last Admin: 10/04/16 08:53 Dose: 1 tab - Labs Labs: 10/04/16 06:45 10/04/16 06:45 PT 13.0 SECONDS (9.6-11.2) H 09/29/16 05:30 INR 1.25 (0.92-1.08) H 09/29/16 05:30 APTT 32.5 SECONDS (23.3-32.5) 09/29/16 05:30 Assessment and Plan (1) Diabetes Status: Chronic (2) ESRD (end stage renal disease) Status: Chronic (3) Cellulitis of leg Status: Acute (4) Hyperlipidemia Status: Chronic (5) Back pain Status: Acute (6) Bacteremia due to Gram-negative bacteria Status: Acute (7) Diabetes mellitus type 2 with peripheral artery disease Status: Acute (8) PVD (peripheral vascular disease) Status: Acute (9) Osteomyelitis of right foot Assessment & Plan: positive pathology report. Status: Acute (10) Fungal infection right foot Assessment & Plan: seen in the pathology report Status: Acute
[2016-10-04] MEDS: Insulin Detemir 100 Units/ml Inj SC SCH (22:47)
[2016-10-05] MEDS: Meropenem 500 MG in Sodium Chloride 0.9% 100 ML IVPB SCH (00:34)
[2016-10-05] MEDS: HYDROmorphone 0.5 mg/0.5 ml ISec IVP PRN ×3 (05:48→18:36)
--- NOTE | 2016-10-05 08:14 | CP.PCM.PN ---
Subjective - Date & Time of Evaluation Date of Evaluation: 10/05/16 Time of Evaluation: 08:12 - Subjective Subjective: Vascular Surgery - Dr. Mccormack Pt S&E. Yesterday pt recieved 2U PRBC for hgb of 8.0 during dialysis. Pt states she is still having some vaginal bleeding and there are plans for a D&C sometime next week. She denies any complaints and states that her pain from the R stump is well controlled. She has been OOB to chair working with PT. No F/C, SOb/Cp. Objective - Vital Signs/Intake and Output Vital Signs (last 24 hours): Temp Pulse Resp BP Pulse Ox 98.2 F 107 H 18 101/65 90 L 10/05/16 07:39 10/05/16 07:39 10/05/16 07:39 10/05/16 07:39 10/05/16 07:39 - Medications Medications: Current Medications Acetaminophen (Tylenol 325mg Tab) 650 mg PO Q4 PRN PRN Reason: Fever >100.4 F Last Admin: 10/02/16 16:27 Dose: 650 mg Acetaminophen (Tylenol 325mg Tab) 650 mg PO Q4 PRN PRN Reason: Pain, moderate (4-7) Last Admin: 09/16/16 22:34 Dose: 650 mg Albuterol Sulfate (Albuterol 0.083% Inhal Barbie (2.5 Mg/3 Ml) Ud) 2.5 mg INH RQ4 PRN PRN Reason: Shortness of Breath Albuterol/Ipratropium (Duoneb 3 Mg/0.5 Mg (3 Ml) Ud) 3 ml INH RQ4 PRN PRN Reason: Shortness of Breath Apixaban (Eliquis) 5 mg PO BID [facility] PRN Reason: Protocol Aspirin (Ecotrin) 81 mg PO DAILY [facility] Last Admin: 10/04/16 08:56 Dose: 81 mg Atorvastatin Calcium (Lipitor) 40 mg PO DAILY [facility] Last Admin: 10/04/16 08:55 Dose: 40 mg Benzonatate (Tessalon Perles) 200 mg PO TID PRN PRN Reason: Cough Last Admin: 10/02/16 14:07 Dose: 200 mg Cinacalcet (Sensipar) 30 mg PO DAILY [facility] Last Admin: 10/04/16 08:53 Dose: 30 mg Diphenhydramine HCl (Benadryl) 25 mg PO Q6 PRN PRN Reason: Itching / Pruritus Epoetin Tha (Procrit) 20,000 unit IV [facility] Last Admin: 10/04/16 15:33 Dose: 20,000 unit Ergocalciferol (Drisdol 50,000 Intl Units Cap) 1 cap PO Q7D [facility] Stop: 11/06/16 11:16 Last Admin: 10/02/16 14:06 Dose: 1 cap Fluconazole (Diflucan) 100 mg PO DAILY [facility] Last Admin: 10/04/16 09:06 Dose: 100 mg Gabapentin (Neurontin) 300 mg PO TID [facility] Last Admin: 10/04/16 17:25 Dose: 300 mg Hydrocortisone (Anusol-Hc) 1 applic ME BID [facility] Last Admin: 10/04/16 17:24 Dose: 1 applic Hydromorphone HCl (Dilaudid) 4 mg PO Q3H PRN PRN Reason: Pain, severe (8-10) Last Admin: 10/05/16 05:47 Dose: 4 mg Hydromorphone HCl (Dilaudid) 1 mg IVP Q3H PRN PRN Reason: Pain, severe (8-10) Last Admin: 10/05/16 05:48 Dose: 1 mg Amikacin Sulfate 250 mg/ (Sodium Chloride) 101 mls @ 100.609 mls/hr IVPB [facility] [place] Last Admin: 10/04/16 09:05 Dose: 100.609 mls/hr Meropenem 500 mg/ Sodium (Chloride) 100 mls @ 100 mls/hr IVPB DAILY@0100 [facility] Last Admin: 10/05/16 00:34 Dose: 100 mls/hr Piperacillin Sod/Tazobactam (Sod 2.25 gm/ Sodium Chloride) 100 mls @ 100 mls/ hr IVPB Q12@0600,1800 [facility] Last Admin: 10/05/16 05:49 Dose: 100 mls/hr Sodium Chloride (Sodium Chloride 0.9%) 1,000 mls @ 10 mls/hr IV .Q24H [facility] Last Admin: 10/04/16 19:41 Dose: 10 mls/hr Linezolid (Zyvox 600mg/300ml D5w) 600 mg in 300 mls @ 300 mls/hr IVPB Q12@0800, 2000 [facility] Last Admin: 10/04/16 20:52 Dose: 300 mls/hr Insulin Detemir (Levemir) 34 units SC HS [facility] Last Admin: 10/04/16 22:47 Dose: 34 units Insulin Human Lispro (Humalog) 10 units SC AC [facility] Last Admin: 10/04/16 18:56 Dose: 10 unit Lidocaine (Lidoderm) 1 ea TD DAILY [facility] Last Admin: 10/04/16 08:45 Dose: Not Given Medroxyprogesterone Acetate (Provera) 10 mg PO DAILY [facility] Last Admin: 10/04/16 08:54 Dose: 10 mg Nystatin (Mycostatin Oint) 1 applic TOP TID [facility] Last Admin: 10/04/16 17:24 Dose: 1 applic Ondansetron HCl (Zofran Inj) 4 mg IVP Q6 PRN PRN Reason: Nausea/Vomiting Last Admin: 09/19/16 10:26 Dose: 4 mg Pantoprazole Sodium (Protonix Ec Tab) 40 mg PO DAILY [facility] Last Admin: 10/04/16 08:53 Dose: 40 mg Sevelamer HCl (Renagel) 1,600 mg PO TID [facility] Last Admin: 10/04/16 18:56 Dose: 1,600 mg Topiramate (Topamax) 50 mg PO BID [facility] Last Admin: 10/04/16 17:25 Dose: 50 mg Vitamin B Complex/Vit C/Folic Acid (Nephro-Ajay) 1 tab PO DAILY [facility] Last Admin: 10/04/16 08:53 Dose: 1 tab - Labs Labs: 10/04/16 06:45 10/04/16 06:45 PT 13.0 SECONDS (9.6-11.2) H 09/29/16 05:30 INR 1.25 (0.92-1.08) H 09/29/16 05:30 APTT 32.5 SECONDS (23.3-32.5) 09/29/16 05:30 - Constitutional Appears: No Acute Distress - Head Exam Head Exam: ATRAUMATIC, NORMAL INSPECTION, NORMOCEPHALIC - Eye Exam Eye Exam: Normal appearance - ENT Exam ENT Exam: Mucous Membranes Moist - Respiratory Exam Respiratory Exam: NORMAL BREATHING PATTERN. absent: Respiratory Distress - Cardiovascular Exam Cardiovascular Exam: Tachycardia - Extremities Exam Additional comments: R stump s/p BKA with knee immobillizer in place, dressing is C/D/I - Neurological Exam Neurological Exam: Alert, Oriented x3 - Psychiatric Exam Psychiatric exam: Normal Affect, Normal Mood - Skin Skin Exam: Dry, Intact Assessment and Plan - Assessment and Plan (Free Text) Assessment: 46F s/p Right BKA POD#4 -Renal diet -Continue pain control prn -F/U H/H -Continue knee immobilizer to R stump -PT/OT DW Dr. Easton Desai PGY2
[2016-10-05] MEDS: Linezolid 600 mg in D5W 300 ml 600 MG/300 ML BAG IVPB SCH ×2 (08:25→21:20)
[2016-10-05] MEDS: Multivitamin Vitamin B Complex (Nephro-Vite) Tab PO SCH (08:51)
[2016-10-05] MEDS: Hydrocortisone 2.5% (Rectal) CREAM PR SCH ×2 (08:51→17:23)
[2016-10-05] MEDS: Nystatin Ointment TOP SCH ×3 (08:52→17:22)
[2016-10-05] MEDS: Pantoprazole 40 mg EC Tab PO SCH (08:52)
[2016-10-05] MEDS: Insulin Lispro (humaLOG) 100 Units/ml Inj SC SCH ×4 (08:52→17:22)
--- NOTE | 2016-10-05 09:40 | PN ---
DATE: 10/05/2016 ROOM: 663 SUBJECTIVE: This is a 46-year-old female with recent uncontrolled type 2 insulin-requiring diabetes, now being followed closely for metabolic management. She tolerated the recent right below-knee ampu tation procedure as noted, and has remained hemodynamically and metabolically stable at this time. H er latest chemistry showed a BUN of 27, sodium 136, potassium 3.9, chloride 97, CO2 24, glucose 308 a nd creatinine 6.1. So at this time, we will continue the modified basal and bolus insulin regimen to allow for dose equilibration and keep her on the Humalog given as 10 units subQ t.i.d. before meals as ordered. We will also continue the Levemir given as 34 units subQ at bedtime daily as given. We will titrate incrementally as indicated to optimize metabolic control. We will follow. Irene Ambrose MD cc: [phone] TT: 10/05/2016 09:39:18 Confirmation # [id number] Dictation # [id number]
[2016-10-05] MEDS: Lidocaine 5% Patch TD SCH (10:28)
--- NOTE | 2016-10-05 12:11 | CP.PCM.PN ---
Subjective - Date & Time of Evaluation Date of Evaluation: 10/05/16 Time of Evaluation: 11:58 - Subjective Subjective: Patient seen and examined. She has no immediate complaints this morning. Pain is adequately controlled and overall patient feels better. She tolerates PO and is able to participate with physical therapy. Patient is in no distress. She is alert and fully appropriate. She is afebrile with stable vital signs at the baseline. Physical exam is overall benign at present. Right leg wound dressing was removed and right BKA stump was examined. There is scant sanguineous discharge from one area of incision line. Otherwise, surgical site shows no krystal signs of infection at present. There is no obvious hematoma. Continue current care. Daily dry dressing changes to the right BKA stump. Continue medical care. Continue close observation of right BKA stump healing. Patient remains increased risk of surgical wound infection due to multiple severe comorbidities and overall poor health status. Should signs of surgical wound infection develop we will address them. Objective - Vital Signs/Intake and Output Vital Signs (last 24 hours): Temp Pulse Resp BP Pulse Ox 98.2 F 107 H 18 101/65 90 L 10/05/16 07:39 10/05/16 07:39 10/05/16 07:39 10/05/16 07:39 10/05/16 07:39 - Medications Medications: Current Medications Acetaminophen (Tylenol 325mg Tab) 650 mg PO Q4 PRN PRN Reason: Fever >100.4 F Last Admin: 10/02/16 16:27 Dose: 650 mg Acetaminophen (Tylenol 325mg Tab) 650 mg PO Q4 PRN PRN Reason: Pain, moderate (4-7) Last Admin: 09/16/16 22:34 Dose: 650 mg Albuterol Sulfate (Albuterol 0.083% Inhal Barbie (2.5 Mg/3 Ml) Ud) 2.5 mg INH RQ4 PRN PRN Reason: Shortness of Breath Albuterol/Ipratropium (Duoneb 3 Mg/0.5 Mg (3 Ml) Ud) 3 ml INH RQ4 PRN PRN Reason: Shortness of Breath Apixaban (Eliquis) 5 mg PO BID [facility] PRN Reason: Protocol Aspirin (Ecotrin) 81 mg PO DAILY [facility] Last Admin: 10/05/16 08:51 Dose: 81 mg Atorvastatin Calcium (Lipitor) 40 mg PO DAILY [facility] Last Admin: 10/05/16 08:51 Dose: 40 mg Benzonatate (Tessalon Perles) 200 mg PO TID PRN PRN Reason: Cough Last Admin: 10/02/16 14:07 Dose: 200 mg Cinacalcet (Sensipar) 30 mg PO DAILY [facility] Last Admin: 10/05/16 08:51 Dose: 30 mg Diphenhydramine HCl (Benadryl) 25 mg PO Q6 PRN PRN Reason: Itching / Pruritus Epoetin Tha (Procrit) 20,000 unit IV MWF [facility] Last Admin: 10/04/16 15:33 Dose: 20,000 unit Ergocalciferol (Drisdol 50,000 Intl Units Cap) 1 cap PO Q7D [facility] Stop: 11/06/16 11:16 Last Admin: 10/02/16 14:06 Dose: 1 cap Fluconazole (Diflucan) 100 mg PO DAILY [facility] Last Admin: 10/05/16 08:52 Dose: 100 mg Gabapentin (Neurontin) 300 mg PO TID [facility] Last Admin: 10/05/16 08:51 Dose: 300 mg Hydrocortisone (Anusol-Hc) 1 applic HI BID [facility] Last Admin: 10/05/16 08:51 Dose: 1 applic Hydromorphone HCl (Dilaudid) 4 mg PO Q3H PRN PRN Reason: Pain, severe (8-10) Last Admin: 10/05/16 09:03 Dose: 4 mg Hydromorphone HCl (Dilaudid) 1 mg IVP Q3H PRN PRN Reason: Pain, severe (8-10) Last Admin: 10/05/16 10:53 Dose: 1 mg Amikacin Sulfate 250 mg/ (Sodium Chloride) 101 mls @ 100.609 mls/hr IVPB MWF [facility] Last Admin: 10/04/16 09:05 Dose: 100.609 mls/hr Meropenem 500 mg/ Sodium (Chloride) 100 mls @ 100 mls/hr IVPB DAILY@0100 [facility] Last Admin: 10/05/16 00:34 Dose: 100 mls/hr Piperacillin Sod/Tazobactam (Sod 2.25 gm/ Sodium Chloride) 100 mls @ 100 mls/ hr IVPB Q12@0600,1800 [facility] Last Admin: 10/05/16 05:49 Dose: 100 mls/hr Sodium Chloride (Sodium Chloride 0.9%) 1,000 mls @ 10 mls/hr IV .Q24H [facility] Last Admin: 10/04/16 19:41 Dose: 10 mls/hr Linezolid (Zyvox 600mg/300ml D5w) 600 mg in 300 mls @ 300 mls/hr IVPB Q12@0800, 2000 [facility] Last Admin: 10/05/16 08:25 Dose: 300 mls/hr Insulin Detemir (Levemir) 34 units SC HS [facility] Last Admin: 10/04/16 22:47 Dose: 34 units Insulin Human Lispro (Humalog) 10 units SC AC [facility] Last Admin: 10/05/16 08:52 Dose: 10 unit Lidocaine (Lidoderm) 1 ea TD DAILY [facility] Last Admin: 10/05/16 10:28 Dose: Not Given Medroxyprogesterone Acetate (Provera) 10 mg PO DAILY [facility] Last Admin: 10/05/16 08:51 Dose: 10 mg Nystatin (Mycostatin Oint) 1 applic TOP TID [facility] Last Admin: 10/05/16 08:52 Dose: 1 applic Ondansetron HCl (Zofran Inj) 4 mg IVP Q6 PRN PRN Reason: Nausea/Vomiting Last Admin: 09/19/16 10:26 Dose: 4 mg Pantoprazole Sodium (Protonix Ec Tab) 40 mg PO DAILY [facility] Last Admin: 10/05/16 08:52 Dose: 40 mg Sevelamer HCl (Renagel) 1,600 mg PO TID [facility] Last Admin: 10/05/16 08:50 Dose: 1,600 mg Topiramate (Topamax) 50 mg PO BID [facility] Last Admin: 10/05/16 08:52 Dose: 50 mg Vitamin B Complex/Vit C/Folic Acid (Nephro-Ajay) 1 tab PO DAILY [facility] Last Admin: 10/05/16 08:51 Dose: 1 tab - Labs Labs: 10/04/16 06:45 10/04/16 06:45 PT 13.0 SECONDS (9.6-11.2) H 09/29/16 05:30 INR 1.25 (0.92-1.08) H 09/29/16 05:30 APTT 32.5 SECONDS (23.3-32.5) 09/29/16 05:30
--- NOTE | 2016-10-05 12:26 | CP.PCM.PN ---
Subjective - Date & Time of Evaluation Date of Evaluation: 10/05/16 Time of Evaluation: 12:25 - Subjective Subjective: Patient is seated up in bedside chair. She claims to be feeling better. She denies any cough or SOB. Overall appears to be improved post operatively. Objective - Vital Signs/Intake and Output Vital Signs (last 24 hours): Temp Pulse Resp BP Pulse Ox 98.2 F 107 H 18 101/65 90 L 10/05/16 07:39 10/05/16 07:39 10/05/16 07:39 10/05/16 07:39 10/05/16 07:39 - Medications Medications: Current Medications Acetaminophen (Tylenol 325mg Tab) 650 mg PO Q4 PRN PRN Reason: Fever >100.4 F Last Admin: 10/02/16 16:27 Dose: 650 mg Acetaminophen (Tylenol 325mg Tab) 650 mg PO Q4 PRN PRN Reason: Pain, moderate (4-7) Last Admin: 09/16/16 22:34 Dose: 650 mg Albuterol Sulfate (Albuterol 0.083% Inhal Barbie (2.5 Mg/3 Ml) Ud) 2.5 mg INH RQ4 PRN PRN Reason: Shortness of Breath Albuterol/Ipratropium (Duoneb 3 Mg/0.5 Mg (3 Ml) Ud) 3 ml INH RQ4 PRN PRN Reason: Shortness of Breath Apixaban (Eliquis) 5 mg PO BID [facility] PRN Reason: Protocol Aspirin (Ecotrin) 81 mg PO DAILY [facility] Last Admin: 10/05/16 08:51 Dose: 81 mg Atorvastatin Calcium (Lipitor) 40 mg PO DAILY [facility] Last Admin: 10/05/16 08:51 Dose: 40 mg Benzonatate (Tessalon Perles) 200 mg PO TID PRN PRN Reason: Cough Last Admin: 10/02/16 14:07 Dose: 200 mg Cinacalcet (Sensipar) 30 mg PO DAILY [facility] Last Admin: 10/05/16 08:51 Dose: 30 mg Diphenhydramine HCl (Benadryl) 25 mg PO Q6 PRN PRN Reason: Itching / Pruritus Epoetin Tha (Procrit) 20,000 unit IV MWF [facility] Last Admin: 10/04/16 15:33 Dose: 20,000 unit Ergocalciferol (Drisdol 50,000 Intl Units Cap) 1 cap PO Q7D [facility] Stop: 11/06/16 11:16 Last Admin: 10/02/16 14:06 Dose: 1 cap Fluconazole (Diflucan) 100 mg PO DAILY [facility] Last Admin: 10/05/16 08:52 Dose: 100 mg Gabapentin (Neurontin) 300 mg PO TID [facility] Last Admin: 10/05/16 08:51 Dose: 300 mg Hydrocortisone (Anusol-Hc) 1 applic [place] BID [facility] Last Admin: 10/05/16 08:51 Dose: 1 applic Hydromorphone HCl (Dilaudid) 4 mg PO Q3H PRN PRN Reason: Pain, severe (8-10) Last Admin: 10/05/16 09:03 Dose: 4 mg Hydromorphone HCl (Dilaudid) 1 mg IVP Q3H PRN PRN Reason: Pain, severe (8-10) Last Admin: 10/05/16 10:53 Dose: 1 mg Amikacin Sulfate 250 mg/ (Sodium Chloride) 101 mls @ 100.609 mls/hr IVPB MWF [facility] Last Admin: 10/04/16 09:05 Dose: 100.609 mls/hr Meropenem 500 mg/ Sodium (Chloride) 100 mls @ 100 mls/hr IVPB DAILY@0100 [facility] Last Admin: 10/05/16 00:34 Dose: 100 mls/hr Piperacillin Sod/Tazobactam (Sod 2.25 gm/ Sodium Chloride) 100 mls @ 100 mls/ hr IVPB Q12@0600,1800 [facility] Last Admin: 10/05/16 05:49 Dose: 100 mls/hr Sodium Chloride (Sodium Chloride 0.9%) 1,000 mls @ 10 mls/hr IV .Q24H [facility] Last Admin: 10/04/16 19:41 Dose: 10 mls/hr Linezolid (Zyvox 600mg/300ml D5w) 600 mg in 300 mls @ 300 mls/hr IVPB Q12@0800, 2000 [facility] Last Admin: 10/05/16 08:25 Dose: 300 mls/hr Insulin Detemir (Levemir) 34 units SC HS [facility] Last Admin: 10/04/16 22:47 Dose: 34 units Insulin Human Lispro (Humalog) 10 units SC AC [facility] Last Admin: 10/05/16 08:52 Dose: 10 unit Lidocaine (Lidoderm) 1 ea TD DAILY [facility] Last Admin: 10/05/16 10:28 Dose: Not Given Medroxyprogesterone Acetate (Provera) 10 mg PO DAILY [facility] Last Admin: 10/05/16 08:51 Dose: 10 mg Nystatin (Mycostatin Oint) 1 applic TOP TID [facility] Last Admin: 10/05/16 08:52 Dose: 1 applic Ondansetron HCl (Zofran Inj) 4 mg IVP Q6 PRN PRN Reason: Nausea/Vomiting Last Admin: 09/19/16 10:26 Dose: 4 mg Pantoprazole Sodium (Protonix Ec Tab) 40 mg PO DAILY [facility] Last Admin: 10/05/16 08:52 Dose: 40 mg Sevelamer HCl (Renagel) 1,600 mg PO TID [facility] Last Admin: 10/05/16 08:50 Dose: 1,600 mg Topiramate (Topamax) 50 mg PO BID [facility] Last Admin: 10/05/16 08:52 Dose: 50 mg Vitamin B Complex/Vit C/Folic Acid (Nephro-Ajay) 1 tab PO DAILY [facility] Last Admin: 10/05/16 08:51 Dose: 1 tab - Labs Labs: 10/04/16 06:45 10/04/16 06:45 PT 13.0 SECONDS (9.6-11.2) H 09/29/16 05:30 INR 1.25 (0.92-1.08) H 09/29/16 05:30 APTT 32.5 SECONDS (23.3-32.5) 09/29/16 05:30
--- NOTE | 2016-10-05 13:26 | CP.PCM.PN ---
Subjective - Date & Time of Evaluation Date of Evaluation: 10/05/16 Time of Evaluation: 13:24 - Subjective Subjective: seen and examined no complaints today eating lunch Objective - Vital Signs/Intake and Output Vital Signs (last 24 hours): Temp Pulse Resp BP Pulse Ox 98.2 F 107 H 18 101/65 90 L 10/05/16 07:39 10/05/16 07:39 10/05/16 07:39 10/05/16 07:39 10/05/16 07:39 - Medications Medications: Current Medications Acetaminophen (Tylenol 325mg Tab) 650 mg PO Q4 PRN PRN Reason: Fever >100.4 F Last Admin: 10/02/16 16:27 Dose: 650 mg Acetaminophen (Tylenol 325mg Tab) 650 mg PO Q4 PRN PRN Reason: Pain, moderate (4-7) Last Admin: 09/16/16 22:34 Dose: 650 mg Albuterol Sulfate (Albuterol 0.083% Inhal Barbie (2.5 Mg/3 Ml) Ud) 2.5 mg INH RQ4 PRN PRN Reason: Shortness of Breath Albuterol/Ipratropium (Duoneb 3 Mg/0.5 Mg (3 Ml) Ud) 3 ml INH RQ4 PRN PRN Reason: Shortness of Breath Apixaban (Eliquis) 5 mg PO BID [facility] PRN Reason: Protocol Aspirin (Ecotrin) 81 mg PO DAILY [facility] Last Admin: 10/05/16 08:51 Dose: 81 mg Atorvastatin Calcium (Lipitor) 40 mg PO DAILY [facility] Last Admin: 10/05/16 08:51 Dose: 40 mg Benzonatate (Tessalon Perles) 200 mg PO TID PRN PRN Reason: Cough Last Admin: 10/02/16 14:07 Dose: 200 mg Cinacalcet (Sensipar) 30 mg PO DAILY [facility] Last Admin: 10/05/16 08:51 Dose: 30 mg Diphenhydramine HCl (Benadryl) 25 mg PO Q6 PRN PRN Reason: Itching / Pruritus Epoetin Tha (Procrit) 20,000 unit IV MWF [facility] Last Admin: 10/04/16 15:33 Dose: 20,000 unit Ergocalciferol (Drisdol 50,000 Intl Units Cap) 1 cap PO Q7D [facility] Stop: 11/06/16 11:16 Last Admin: 10/02/16 14:06 Dose: 1 cap Fluconazole (Diflucan) 100 mg PO DAILY [facility] Last Admin: 10/05/16 08:52 Dose: 100 mg Gabapentin (Neurontin) 300 mg PO TID [facility] Last Admin: 10/05/16 12:50 Dose: 300 mg Hydrocortisone (Anusol-Hc) 1 applic [place] BID [facility] Last Admin: 10/05/16 08:51 Dose: 1 applic Hydromorphone HCl (Dilaudid) 4 mg PO Q3H PRN PRN Reason: Pain, severe (8-10) Last Admin: 10/05/16 09:03 Dose: 4 mg Hydromorphone HCl (Dilaudid) 1 mg IVP Q3H PRN PRN Reason: Pain, severe (8-10) Last Admin: 10/05/16 10:53 Dose: 1 mg Amikacin Sulfate 250 mg/ (Sodium Chloride) 101 mls @ 100.609 mls/hr IVPB MWF [facility] Last Admin: 10/04/16 09:05 Dose: 100.609 mls/hr Meropenem 500 mg/ Sodium (Chloride) 100 mls @ 100 mls/hr IVPB DAILY@0100 [facility] Last Admin: 10/05/16 00:34 Dose: 100 mls/hr Piperacillin Sod/Tazobactam (Sod 2.25 gm/ Sodium Chloride) 100 mls @ 100 mls/ hr IVPB Q12@0600,1800 [facility] Last Admin: 10/05/16 05:49 Dose: 100 mls/hr Sodium Chloride (Sodium Chloride 0.9%) 1,000 mls @ 10 mls/hr IV .Q24H [facility] Last Admin: 10/04/16 19:41 Dose: 10 mls/hr Linezolid (Zyvox 600mg/300ml D5w) 600 mg in 300 mls @ 300 mls/hr IVPB Q12@0800, 2000 [facility] Last Admin: 10/05/16 08:25 Dose: 300 mls/hr Insulin Detemir (Levemir) 34 units SC HS [facility] Last Admin: 10/04/16 22:47 Dose: 34 units Insulin Human Lispro (Humalog) 10 units SC AC [facility] Last Admin: 10/05/16 12:48 Dose: 10 unit Lidocaine (Lidoderm) 1 ea TD DAILY [facility] Last Admin: 10/05/16 10:28 Dose: Not Given Medroxyprogesterone Acetate (Provera) 10 mg PO DAILY [facility] Last Admin: 10/05/16 08:51 Dose: 10 mg Nystatin (Mycostatin Oint) 1 applic TOP TID [facility] Last Admin: 10/05/16 08:52 Dose: 1 applic Ondansetron HCl (Zofran Inj) 4 mg IVP Q6 PRN PRN Reason: Nausea/Vomiting Last Admin: 09/19/16 10:26 Dose: 4 mg Pantoprazole Sodium (Protonix Ec Tab) 40 mg PO DAILY [facility] Last Admin: 10/05/16 08:52 Dose: 40 mg Sevelamer HCl (Renagel) 1,600 mg PO TID [facility] Last Admin: 10/05/16 12:48 Dose: 1,600 mg Topiramate (Topamax) 50 mg PO BID [facility] Last Admin: 10/05/16 08:52 Dose: 50 mg Vitamin B Complex/Vit C/Folic Acid (Nephro-Ajay) 1 tab PO DAILY [facility] Last Admin: 10/05/16 08:51 Dose: 1 tab - Labs Labs: 10/04/16 06:45 10/04/16 06:45 PT 13.0 SECONDS (9.6-11.2) H 09/29/16 05:30 INR 1.25 (0.92-1.08) H 09/29/16 05:30 APTT 32.5 SECONDS (23.3-32.5) 09/29/16 05:30 - Constitutional Appears: Well - Head Exam Head Exam: ATRAUMATIC - Eye Exam Eye Exam: Normal appearance - ENT Exam ENT Exam: Normal Exam - Neck Exam Neck Exam: Normal Inspection - Respiratory Exam Respiratory Exam: NORMAL BREATHING PATTERN - Cardiovascular Exam Cardiovascular Exam: +S1, +S2 - GI/Abdominal Exam GI & Abdominal Exam: Normal Bowel Sounds - Extremities Exam Additional comments: b/l bka's - Neurological Exam Neurological Exam: Alert, Oriented x3 - Psychiatric Exam Psychiatric exam: Normal Affect - Skin Additional comments: dressing on BKA stump Assessment and Plan - Assessment and Plan (Free Text) Assessment: Assessment/Plan: End stage renal disease: cont HD MWF Anemia: On MARTHA as Epogen 20,000 with HD s/p prbc yesterday - no cbc drawn today Hyperphosphatemia: continue renagel 1600 TID Secondary hyperparathyroidism with Vit D Deficiency: on sensipar and ergo Hypertension:reasonably controlled
--- NOTE | 2016-10-05 16:39 | CP.PCM.PN ---
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 As per Dr. Mccormack's note healing has begun and there is no sign of infection. She looks better today - with no fevers, pain controlled, good appetite, bowels OK. Sitting in reclining chair. Still with some vaginal bleeding, but it has subsided somewhat. Nevertheless, this is her third course of Provera and she has needed 4 or more units of red cells due to blood loss. Also, we need to rule out a uterine malignancy since she is at increased risk due to obesity and diabetes mellitus. So, we will proceed with plans for D & C and endometrial ablation treatment by Dr. Larry on October 11. She continues on Aspirin and Eliquis. Will discuss with Dr. Evita Shepard re timing of stopping these prior to surgical procedure on 10/11. DM generally controlled. Will hold on blood work until time of HD on 10/07. At that time will get CBC and BMP. Objective - Vital Signs/Intake and Output Vital Signs (last 24 hours): Temp Pulse Resp BP Pulse Ox 98.2 F 107 H 18 101/65 90 L 10/05/16 07:39 10/05/16 07:39 10/05/16 07:39 10/05/16 07:39 10/05/16 07:39 - Medications Medications: Current Medications Acetaminophen (Tylenol 325mg Tab) 650 mg PO Q4 PRN PRN Reason: Fever >100.4 F Last Admin: 10/02/16 16:27 Dose: 650 mg Acetaminophen (Tylenol 325mg Tab) 650 mg PO Q4 PRN PRN Reason: Pain, moderate (4-7) Last Admin: 09/16/16 22:34 Dose: 650 mg Albuterol Sulfate (Albuterol 0.083% Inhal Barbie (2.5 Mg/3 Ml) Ud) 2.5 mg INH RQ4 PRN PRN Reason: Shortness of Breath Albuterol/Ipratropium (Duoneb 3 Mg/0.5 Mg (3 Ml) Ud) 3 ml INH RQ4 PRN PRN Reason: Shortness of Breath Apixaban (Eliquis) 5 mg PO BID [facility] PRN Reason: Protocol Aspirin (Ecotrin) 81 mg PO DAILY [facility] Last Admin: 10/05/16 08:51 Dose: 81 mg Atorvastatin Calcium (Lipitor) 40 mg PO DAILY [facility] Last Admin: 10/05/16 08:51 Dose: 40 mg Benzonatate (Tessalon Perles) 200 mg PO TID PRN PRN Reason: Cough Last Admin: 10/02/16 14:07 Dose: 200 mg Cinacalcet (Sensipar) 30 mg PO DAILY [facility] Last Admin: 10/05/16 08:51 Dose: 30 mg Diphenhydramine HCl (Benadryl) 25 mg PO Q6 PRN PRN Reason: Itching / Pruritus Epoetin Tha (Procrit) [facility] Last Admin: 10/04/16 15:33 Dose: 20,000 unit Ergocalciferol (Drisdol 50,000 Intl Units Cap) 1 cap PO Q7D [facility] Stop: 11/06/16 11:16 Last Admin: 10/02/16 14:06 Dose: 1 cap Fluconazole (Diflucan) 100 mg PO DAILY [facility] Last Admin: 10/05/16 08:52 Dose: 100 mg Gabapentin (Neurontin) 300 mg PO TID [facility] Last Admin: 10/05/16 12:50 Dose: 300 mg Hydrocortisone (Anusol-Hc) 1 applic [place] BID [facility] Last Admin: 10/05/16 08:51 Dose: 1 applic Hydromorphone HCl (Dilaudid) 4 mg PO Q3H PRN PRN Reason: Pain, severe (8-10) Last Admin: 10/05/16 09:03 Dose: 4 mg Hydromorphone HCl (Dilaudid) 1 mg IVP Q3H PRN PRN Reason: Pain, severe (8-10) Last Admin: 10/05/16 10:53 Dose: 1 mg Amikacin Sulfate 250 mg/ (Sodium Chloride) 101 mls @ 100.609 mls/hr IVPB MWF [facility] Last Admin: 10/04/16 09:05 Dose: 100.609 mls/hr Meropenem 500 mg/ Sodium (Chloride) 100 mls @ 100 mls/hr IVPB DAILY@0100 [facility] Last Admin: 10/05/16 00:34 Dose: 100 mls/hr Piperacillin Sod/Tazobactam (Sod 2.25 gm/ Sodium Chloride) 100 mls @ 100 mls/ hr IVPB Q12@0600,1800 [facility] Last Admin: 10/05/16 05:49 Dose: 100 mls/hr Sodium Chloride (Sodium Chloride 0.9%) 1,000 mls @ 10 mls/hr IV .Q24H [facility] Last Admin: 10/04/16 19:41 Dose: 10 mls/hr Linezolid (Zyvox 600mg/300ml D5w) 600 mg in 300 mls @ 300 mls/hr IVPB Q12@0800, 2000 [facility] Last Admin: 10/05/16 08:25 Dose: 300 mls/hr Insulin Detemir (Levemir) 34 units SC HS [facility] Last Admin: 10/04/16 22:47 Dose: 34 units Insulin Human Lispro (Humalog) 10 units SC AC [facility] Last Admin: 10/05/16 12:48 Dose: 10 unit Lidocaine (Lidoderm) 1 ea TD DAILY [facility] Last Admin: 10/05/16 10:28 Dose: Not Given Medroxyprogesterone Acetate (Provera) 10 mg PO DAILY [facility] Last Admin: 10/05/16 08:51 Dose: 10 mg Nystatin (Mycostatin Oint) 1 applic TOP TID [facility] Last Admin: 10/05/16 14:37 Dose: Not Given Ondansetron HCl (Zofran Inj) 4 mg IVP Q6 PRN PRN Reason: Nausea/Vomiting Last Admin: 09/19/16 10:26 Dose: 4 mg Pantoprazole Sodium (Protonix Ec Tab) 40 mg PO DAILY [facility] Last Admin: 10/05/16 08:52 Dose: 40 mg Sevelamer HCl (Renagel) 1,600 mg PO TID [facility] Last Admin: 10/05/16 12:48 Dose: 1,600 mg Topiramate (Topamax) 50 mg PO BID [facility] Last Admin: 10/05/16 08:52 Dose: 50 mg Vitamin B Complex/Vit C/Folic Acid (Nephro-Ajay) 1 tab PO DAILY [facility] Last Admin: 10/05/16 08:51 Dose: 1 tab - Labs Labs: 10/04/16 06:45 10/04/16 06:45 PT 13.0 SECONDS (9.6-11.2) H 09/29/16 05:30 INR 1.25 (0.92-1.08) H 09/29/16 05:30 APTT 32.5 SECONDS (23.3-32.5) 09/29/16 05:30 - Constitutional Appears: No Acute Distress - Head Exam Head Exam: NORMAL INSPECTION - Eye Exam Eye Exam: Normal appearance - ENT Exam ENT Exam: Mucous Membranes Moist - Neck Exam Neck Exam: Normal Inspection - Respiratory Exam Respiratory Exam: Clear to Ausculation Bilateral, NORMAL BREATHING PATTERN - Cardiovascular Exam Cardiovascular Exam: REGULAR RHYTHM, +S1, +S2 - GI/Abdominal Exam GI & Abdominal Exam: Soft - Extremities Exam Additional comments: Dressing intact right residual leg - dry. DEMIAN wrap L residual limb. - Back Exam Back Exam: NORMAL INSPECTION - Neurological Exam Neurological Exam: Alert, Awake, CN II-XII Intact, Oriented x3 - Psychiatric Exam Psychiatric exam: Normal Affect, Normal Mood - Skin Skin Exam: Dry, Normal Color, Warm (Buttock with Allevyn dressing.) Assessment and Plan (1) Osteomyelitis of ankle or foot Assessment & Plan: SEE SUBJECTIVE Continue 4 iv and 1 po antibiotic as previously ordered. Status: Acute (2) ESRD (end stage renal disease) on dialysis Assessment & Plan: Tolerating HD via Permacath Status: Chronic (3) DM type 2 (diabetes mellitus, type 2) Assessment & Plan: SEE SUBJECTIVE Status: Chronic (4) Coagulopathy Assessment & Plan: SEE SUBJECTIVE Status: Chronic (5) Peripheral arterial occlusive disease Status: Chronic (6) Anemia, blood loss Assessment & Plan: SEE SUBJECTIVE Status: Acute
[2016-10-05] MEDS: Sodium Chloride 0.9% 1,000 ML IV SCH (17:30)
[2016-10-05] MEDS: Insulin Detemir 100 Units/ml Inj SC SCH (23:00)
--- NOTE | 2016-10-06 00:27 | CP.PCM.PN ---
Subjective - Date & Time of Evaluation Date of Evaluation: 10/05/16 Time of Evaluation: 20:00 - Subjective Subjective: She is not in severe pain anymore and is receiving IV Antibiotics for her Osteomyelitis. She is receiving her Hemodialysis for her ESRF as usual. She is getting stable. No Seizures. Objective - Vital Signs/Intake and Output Vital Signs (last 24 hours): Temp Pulse Resp BP Pulse Ox 99.7 F H 117 H 20 97/67 L 99 10/05/16 16:52 10/05/16 16:52 10/05/16 16:52 10/05/16 16:52 10/05/16 16:52 - Medications Medications: Current Medications Acetaminophen (Tylenol 325mg Tab) 650 mg PO Q4 PRN PRN Reason: Fever >100.4 F Last Admin: 10/02/16 16:27 Dose: 650 mg Acetaminophen (Tylenol 325mg Tab) 650 mg PO Q4 PRN PRN Reason: Pain, moderate (4-7) Last Admin: 09/16/16 22:34 Dose: 650 mg Albuterol Sulfate (Albuterol 0.083% Inhal Barbie (2.5 Mg/3 Ml) Ud) 2.5 mg INH RQ4 PRN PRN Reason: Shortness of Breath Albuterol/Ipratropium (Duoneb 3 Mg/0.5 Mg (3 Ml) Ud) 3 ml INH RQ4 PRN PRN Reason: Shortness of Breath Apixaban (Eliquis) 5 mg PO BID [facility] PRN Reason: Protocol Aspirin (Ecotrin) 81 mg PO DAILY [facility] Last Admin: 10/05/16 08:51 Dose: 81 mg Atorvastatin Calcium (Lipitor) 40 mg PO DAILY [facility] Last Admin: 10/05/16 08:51 Dose: 40 mg Benzonatate (Tessalon Perles) 200 mg PO TID PRN PRN Reason: Cough Last Admin: 10/02/16 14:07 Dose: 200 mg Cinacalcet (Sensipar) 30 mg PO DAILY [facility] Last Admin: 10/05/16 08:51 Dose: 30 mg Diphenhydramine HCl (Benadryl) 25 mg PO Q6 PRN PRN Reason: Itching / Pruritus Epoetin Tha (Procrit) 20,000 unit IV MWF [facility] Last Admin: 10/04/16 15:33 Dose: 20,000 unit Ergocalciferol (Drisdol 50,000 Intl Units Cap) 1 cap PO Q7D [facility] Stop: 11/06/16 11:16 Last Admin: 10/02/16 14:06 Dose: 1 cap Fluconazole (Diflucan) 100 mg PO DAILY [facility] Last Admin: 10/05/16 08:52 Dose: 100 mg Gabapentin (Neurontin) 300 mg PO TID [facility] Last Admin: 10/05/16 17:23 Dose: 300 mg Hydrocortisone (Anusol-Hc) 1 applic [place] BID [facility] Last Admin: 10/05/16 17:23 Dose: Not Given Hydromorphone HCl (Dilaudid) 4 mg PO Q3H PRN PRN Reason: Pain, severe (8-10) Last Admin: 10/05/16 18:37 Dose: 4 mg Hydromorphone HCl (Dilaudid) 1 mg IVP Q3H PRN PRN Reason: Pain, severe (8-10) Last Admin: 10/05/16 18:36 Dose: 1 mg Amikacin Sulfate 250 mg/ (Sodium Chloride) 101 mls @ 100.609 mls/hr IVPB MWF [facility] Last Admin: 10/04/16 09:05 Dose: 100.609 mls/hr Meropenem 500 mg/ Sodium (Chloride) 100 mls @ 100 mls/hr IVPB DAILY@0100 [facility] Last Admin: 10/05/16 00:34 Dose: 100 mls/hr Piperacillin Sod/Tazobactam (Sod 2.25 gm/ Sodium Chloride) 100 mls @ 100 mls/ hr IVPB Q12@0600,1800 [facility] Last Admin: 10/05/16 17:21 Dose: 100 mls/hr Sodium Chloride (Sodium Chloride 0.9%) 1,000 mls @ 10 mls/hr IV .Q24H [facility] Last Admin: 10/05/16 17:30 Dose: 10 mls/hr Linezolid (Zyvox 600mg/300ml D5w) 600 mg in 300 mls @ 300 mls/hr IVPB Q12@0800, 2000 [facility] Last Admin: 10/05/16 21:20 Dose: 300 mls/hr Insulin Detemir (Levemir) 34 units SC [facility] Last Admin: 10/05/16 23:00 Dose: 34 units Insulin Human Lispro (Humalog) 10 units SC AC [facility] Last Admin: 10/05/16 17:22 Dose: 10 unit Lidocaine (Lidoderm) 1 ea TD DAILY [facility] Last Admin: 10/05/16 10:28 Dose: Not Given Medroxyprogesterone Acetate (Provera) 10 mg PO DAILY [facility] Last Admin: 10/05/16 08:51 Dose: 10 mg Nystatin (Mycostatin Oint) 1 applic TOP TID [facility] Last Admin: 10/05/16 17:22 Dose: 1 applic Ondansetron HCl (Zofran Inj) 4 mg IVP Q6 PRN PRN Reason: Nausea/Vomiting Last Admin: 09/19/16 10:26 Dose: 4 mg Pantoprazole Sodium (Protonix Ec Tab) 40 mg PO DAILY [facility] Last Admin: 10/05/16 08:52 Dose: 40 mg Sevelamer HCl (Renagel) 1,600 mg PO TID [facility] Last Admin: 10/05/16 17:22 Dose: 1,600 mg Topiramate (Topamax) 50 mg PO BID [facility] Last Admin: 10/05/16 17:22 Dose: 50 mg Vitamin B Complex/Vit C/Folic Acid (Nephro-Ajay) 1 tab PO DAILY [facility] Last Admin: 10/05/16 08:51 Dose: 1 tab - Labs Labs: 10/04/16 06:45 10/04/16 06:45 PT 13.0 SECONDS (9.6-11.2) H 09/29/16 05:30 INR 1.25 (0.92-1.08) H 09/29/16 05:30 APTT 32.5 SECONDS (23.3-32.5) 09/29/16 05:30 Assessment and Plan (1) Diabetes Status: Chronic (2) ESRD (end stage renal disease) Status: Chronic (3) Cellulitis of leg Status: Acute (4) Hyperlipidemia Status: Chronic (5) Back pain Status: Acute (6) Bacteremia due to Gram-negative bacteria Status: Acute (7) Diabetes mellitus type 2 with peripheral artery disease Status: Acute (8) PVD (peripheral vascular disease) Status: Acute (9) Osteomyelitis of right foot Status: Acute (10) Fungal infection right foot Status: Acute
[2016-10-06] MEDS: Meropenem 500 MG in Sodium Chloride 0.9% 100 ML IVPB SCH (01:22)
[2016-10-06] MEDS: HYDROmorphone 0.5 mg/0.5 ml ISec IVP PRN ×3 (01:36→18:32)
--- NOTE | 2016-10-06 08:33 | CP.PCM.PN ---
Subjective - Date & Time of Evaluation Date of Evaluation: 10/06/16 Time of Evaluation: 08:30 - Subjective Subjective: VASCULAR SURGERY NOTE FOR Objective - Vital Signs/Intake and Output Vital Signs (last 24 hours): Temp Pulse Resp BP Pulse Ox 98.2 F 120 H 20 103/80 93 L 10/06/16 07:34 10/06/16 07:34 10/06/16 07:34 10/06/16 07:34 10/06/16 07:34 - Medications Medications: Current Medications Acetaminophen (Tylenol 325mg Tab) 650 mg PO Q4 PRN PRN Reason: Fever >100.4 F Last Admin: 10/02/16 16:27 Dose: 650 mg Acetaminophen (Tylenol 325mg Tab) 650 mg PO Q4 PRN PRN Reason: Pain, moderate (4-7) Last Admin: 09/16/16 22:34 Dose: 650 mg Albuterol Sulfate (Albuterol 0.083% Inhal Barbie (2.5 Mg/3 Ml) Ud) 2.5 mg INH RQ4 PRN PRN Reason: Shortness of Breath Albuterol/Ipratropium (Duoneb 3 Mg/0.5 Mg (3 Ml) Ud) 3 ml INH RQ4 PRN PRN Reason: Shortness of Breath Apixaban (Eliquis) 5 mg PO BID [facility] PRN Reason: Protocol Aspirin (Ecotrin) 81 mg PO DAILY [facility] Last Admin: 10/05/16 08:51 Dose: 81 mg Atorvastatin Calcium (Lipitor) 40 mg PO DAILY [facility] Last Admin: 10/05/16 08:51 Dose: 40 mg Benzonatate (Tessalon Perles) 200 mg PO TID PRN PRN Reason: Cough Last Admin: 10/02/16 14:07 Dose: 200 mg Cinacalcet (Sensipar) 30 mg PO DAILY [facility] Last Admin: 10/05/16 08:51 Dose: 30 mg Diphenhydramine HCl (Benadryl) 25 mg PO Q6 PRN PRN Reason: Itching / Pruritus Epoetin Tha (Procrit) 20,000 unit IV MWF [facility] Last Admin: 10/04/16 15:33 Dose: 20,000 unit Ergocalciferol (Drisdol 50,000 Intl Units Cap) 1 cap PO Q7D [facility] Stop: 11/06/16 11:16 Last Admin: 10/02/16 14:06 Dose: 1 cap Fluconazole (Diflucan) 100 mg PO DAILY [facility] Last Admin: 10/05/16 08:52 Dose: 100 mg Gabapentin (Neurontin) 300 mg PO TID [facility] Last Admin: 10/05/16 17:23 Dose: 300 mg Hydrocortisone (Anusol-Hc) 1 applic [place] BID [facility] Last Admin: 10/05/16 17:23 Dose: Not Given Hydromorphone HCl (Dilaudid) 4 mg PO Q3H PRN PRN Reason: Pain, severe (8-10) Last Admin: 10/06/16 06:52 Dose: 4 mg Hydromorphone HCl (Dilaudid) 1 mg IVP Q3H PRN PRN Reason: Pain, severe (8-10) Last Admin: 10/06/16 06:57 Dose: 1 mg Amikacin Sulfate 250 mg/ (Sodium Chloride) 101 mls @ 100.609 mls/hr IVPB MWF [facility] Last Admin: 10/04/16 09:05 Dose: 100.609 mls/hr Meropenem 500 mg/ Sodium (Chloride) 100 mls @ 100 mls/hr IVPB DAILY@0100 [facility] Last Admin: 10/06/16 01:22 Dose: 100 mls/hr Piperacillin Sod/Tazobactam (Sod 2.25 gm/ Sodium Chloride) 100 mls @ 100 mls/ hr IVPB Q12@0600,1800 [facility] Last Admin: 10/06/16 05:52 Dose: 100 mls/hr Sodium Chloride (Sodium Chloride 0.9%) 1,000 mls @ 10 mls/hr IV .Q24H [facility] Last Admin: 10/05/16 17:30 Dose: 10 mls/hr Linezolid (Zyvox 600mg/300ml D5w) 600 mg in 300 mls @ 300 mls/hr IVPB Q12@0800, 2000 [facility] Last Admin: 10/05/16 21:20 Dose: 300 mls/hr Insulin Detemir (Levemir) 34 units SC HS [facility] Last Admin: 10/05/16 23:00 Dose: 34 units Insulin Human Lispro (Humalog) 10 units SC AC [facility] Last Admin: 10/05/16 17:22 Dose: 10 unit Lidocaine (Lidoderm) 1 ea TD DAILY [facility] Last Admin: 10/05/16 10:28 Dose: Not Given Medroxyprogesterone Acetate (Provera) 10 mg PO DAILY [facility] Last Admin: 10/05/16 08:51 Dose: 10 mg Nystatin (Mycostatin Oint) 1 applic TOP TID [facility] Last Admin: 10/05/16 17:22 Dose: 1 applic Ondansetron HCl (Zofran Inj) 4 mg IVP Q6 PRN PRN Reason: Nausea/Vomiting Last Admin: 09/19/16 10:26 Dose: 4 mg Pantoprazole Sodium (Protonix Ec Tab) 40 mg PO DAILY [facility] Last Admin: 10/05/16 08:52 Dose: 40 mg Sevelamer HCl (Renagel) 1,600 mg PO TID [facility] Last Admin: 10/05/16 17:22 Dose: 1,600 mg Topiramate (Topamax) 50 mg PO BID [facility] Last Admin: 10/05/16 17:22 Dose: 50 mg Vitamin B Complex/Vit C/Folic Acid (Nephro-Ajay) 1 tab PO DAILY [facility] Last Admin: 10/05/16 08:51 Dose: 1 tab - Labs Labs: 10/04/16 06:45 10/04/16 06:45 PT 13.0 SECONDS (9.6-11.2) H 09/29/16 05:30 INR 1.25 (0.92-1.08) H 09/29/16 05:30 APTT 32.5 SECONDS (23.3-32.5) 09/29/16 05:30 - Constitutional Appears: Non-toxic, No Acute Distress - Respiratory Exam Respiratory Exam: Clear to Ausculation Bilateral, NORMAL BREATHING PATTERN - Cardiovascular Exam Cardiovascular Exam: REGULAR RHYTHM, +S1, +S2 - Extremities Exam Additional comments: Bilateral BKA. Right stump has dressing in place. Dressings CDI. Knee immobilizer in place - Neurological Exam Neurological Exam: Alert, Awake - Skin Skin Exam: Dry, Intact, Normal Color, Warm Assessment and Plan - Assessment and Plan (Free Text) Assessment: 46F s/p Right BKA POD#5 -Continue pain control prn -F/U H/H -Continue knee immobilizer to R stump -PT/OT Further recs discuss with Dr. Easton Jordan, PGY1
[2016-10-06] MEDS: Hydrocortisone 2.5% (Rectal) CREAM PR SCH ×2 (09:04→16:43)
[2016-10-06] MEDS: Insulin Lispro (humaLOG) 100 Units/ml Inj SC SCH ×3 (09:07→16:44)
[2016-10-06] MEDS: Lidocaine 5% Patch TD SCH (09:08)
[2016-10-06] MEDS: Nystatin Ointment TOP SCH ×3 (09:09→16:46)
[2016-10-06] MEDS: Multivitamin Vitamin B Complex (Nephro-Vite) Tab PO SCH (09:10)
[2016-10-06] MEDS: Pantoprazole 40 mg EC Tab PO SCH (09:12)
[2016-10-06] MEDS: Linezolid 600 mg in D5W 300 ml 600 MG/300 ML BAG IVPB SCH ×2 (09:14→20:32)
--- NOTE | 2016-10-06 11:20 | PN ---
DATE: 10/06/2016 ENDO FOLLOWUP NOTE ROOM: 663. SUBJECTIVE: This is a 46-year-old female with recent right below-knee amputation undertaken for mainor re osteomyelitis and peripheral arterial disease and vasculopathy and is now being followed closely f or metabolic management. Her glycemic levels are fluctuating as expected postoperatively with increa sed insulin resistance and further impaired glucose tolerance thereof. Recent dose modifications hav e been undertaken as noted. LABORATORY DATA: Her latest chemistry showed a BUN of 27, sodium 136, potassium 3.9, chloride 97, CO 2 of 24, glucose 308, and creatinine 6.1. So at this time, we will continue the same modified basal and bolus insulin regimen as ordered with L evemir given as 34 units subQ at bedtime daily as given. We will continue the Humalog given as 10 un its subQ t.i.d. before meals as ordered. We will obtain serial chemistries and supplement accordingl y as needed. We will follow. Irene Ambrose MD cc: [id number] TT: 10/06/2016 11:19:39 Confirmation # [id number] Dictation # [id number] jn
--- NOTE | 2016-10-06 14:56 | CP.PCM.PN ---
Subjective - Date & Time of Evaluation Date of Evaluation: 10/06/16 Time of Evaluation: 14:49 - Subjective Subjective: Patient is comfortable, day # 5 post right BK amputation. She is afebrile. She continues on 4 iv antibiotics and 1 po antibiotic for documented osteomyelitis of the right foot. PGYI surgical note appreciated. Patient finds that iv Dilaudid 1mg works best, but po Dilaudid 4mg makes her "jittery." So the po order has been discontinued. Plan is for D & C and endometrial ablation on October [address] Larry because of persistent vaginal bleeding despite Provera. Today the bleeding is slightly less than before, but she passed one large clot. As per Dr. Evita Shepard: We are holding aspirin as of today (for 5 days prior to surgical intervention). We will resume Eliquis tonight and continue through Friday, October 09. Then Eliquis will be held for 48 hours (Fri and ) prior to surgery on October 11. For hemodialysis tomorrow. -- will get CBC, CMP, and PT/PTT/INR to see if there is further need for blood transfusions prior to surgery. If so, transfusions can be done on Fri at time of dialysis. Diabetes is under control per new orders by Dr. Ambrose. Objective - Vital Signs/Intake and Output Vital Signs (last 24 hours): Temp Pulse Resp BP Pulse Ox 98.2 F 120 H 20 103/80 93 L 10/06/16 07:34 10/06/16 07:34 10/06/16 07:34 10/06/16 07:34 10/06/16 07:34 - Medications Medications: Current Medications Acetaminophen (Tylenol 325mg Tab) 650 mg PO Q4 PRN PRN Reason: Fever >100.4 F Last Admin: 10/02/16 16:27 Dose: 650 mg Acetaminophen (Tylenol 325mg Tab) 650 mg PO Q4 PRN PRN Reason: Pain, moderate (4-7) Last Admin: 09/16/16 22:34 Dose: 650 mg Albuterol Sulfate (Albuterol 0.083% Inhal Barbie (2.5 Mg/3 Ml) Ud) 2.5 mg INH RQ4 PRN PRN Reason: Shortness of Breath Albuterol/Ipratropium (Duoneb 3 Mg/0.5 Mg (3 Ml) Ud) 3 ml INH RQ4 PRN PRN Reason: Shortness of Breath Apixaban (Eliquis) 5 mg PO BID [facility] PRN Reason: Protocol Aspirin (Ecotrin) 81 mg PO DAILY [facility] Last Admin: 10/06/16 09:06 Dose: 81 mg Atorvastatin Calcium (Lipitor) 40 mg PO DAILY [facility] Last Admin: 10/06/16 09:09 Dose: 40 mg Benzonatate (Tessalon Perles) 200 mg PO TID PRN PRN Reason: Cough Last Admin: 10/02/16 14:07 Dose: 200 mg Cinacalcet (Sensipar) 30 mg PO DAILY [facility] Last Admin: 10/06/16 09:13 Dose: 30 mg Diphenhydramine HCl (Benadryl) 25 mg PO Q6 PRN PRN Reason: Itching / Pruritus Epoetin Tha (Procrit) 20,000 unit IV [facility] Last Admin: 10/04/16 15:33 Dose: 20,000 unit Ergocalciferol (Drisdol 50,000 Intl Units Cap) 1 cap PO Q7D [facility] Stop: 11/06/16 11:16 Last Admin: 10/02/16 14:06 Dose: 1 cap Fluconazole (Diflucan) 100 mg PO DAILY [facility] Last Admin: 10/06/16 09:04 Dose: 100 mg Gabapentin (Neurontin) 300 mg PO TID [facility] Last Admin: 10/06/16 14:12 Dose: 300 mg Hydrocortisone (Anusol-Hc) 1 applic [place] BID [facility] Last Admin: 10/06/16 09:04 Dose: Not Given Hydromorphone HCl (Dilaudid) 4 mg PO Q3H PRN PRN Reason: Pain, severe (8-10) Last Admin: 10/06/16 06:52 Dose: 4 mg Hydromorphone HCl (Dilaudid) 1 mg IVP Q3H PRN PRN Reason: Pain, severe (8-10) Last Admin: 10/06/16 06:57 Dose: 1 mg Amikacin Sulfate 250 mg/ (Sodium Chloride) 101 mls @ 100.609 mls/hr IVPB MWF [facility] Last Admin: 10/04/16 09:05 Dose: 100.609 mls/hr Meropenem 500 mg/ Sodium (Chloride) 100 mls @ 100 mls/hr IVPB DAILY@0100 [facility] Last Admin: 10/06/16 01:22 Dose: 100 mls/hr Piperacillin Sod/Tazobactam (Sod 2.25 gm/ Sodium Chloride) 100 mls @ 100 mls/ hr IVPB Q12@0600,1800 [facility] Last Admin: 10/06/16 05:52 Dose: 100 mls/hr Sodium Chloride (Sodium Chloride 0.9%) 1,000 mls @ 10 mls/hr IV .Q24H [facility] Last Admin: 10/05/16 17:30 Dose: 10 mls/hr Linezolid (Zyvox 600mg/300ml D5w) 600 mg in 300 mls @ 300 mls/hr IVPB Q12@0800, 2000 [facility] Last Admin: 10/06/16 09:14 Dose: 300 mls/hr Insulin Detemir (Levemir) 34 units SC HS [facility] Last Admin: 10/05/16 23:00 Dose: 34 units Insulin Human Lispro (Humalog) 10 units SC AC [facility] Last Admin: 10/06/16 11:30 Dose: 10 unit Lidocaine (Lidoderm) 1 ea TD DAILY [facility] Last Admin: 10/06/16 09:08 Dose: Not Given Medroxyprogesterone Acetate (Provera) 10 mg PO DAILY [facility] Last Admin: 10/06/16 09:12 Dose: 10 mg Nystatin (Mycostatin Oint) 1 applic TOP TID [facility] Last Admin: 10/06/16 13:30 Dose: 1 applic Ondansetron HCl (Zofran Inj) 4 mg IVP Q6 PRN PRN Reason: Nausea/Vomiting Last Admin: 09/19/16 10:26 Dose: 4 mg Pantoprazole Sodium (Protonix Ec Tab) 40 mg PO DAILY [facility] Last Admin: 10/06/16 09:12 Dose: 40 mg Sevelamer HCl (Renagel) 1,600 mg PO TID [facility] Last Admin: 10/06/16 13:00 Dose: 1,600 mg Topiramate (Topamax) 50 mg PO BID [facility] Last Admin: 10/06/16 09:13 Dose: 50 mg Vitamin B Complex/Vit C/Folic Acid (Nephro-Ajay) 1 tab PO DAILY [facility] Last Admin: 10/06/16 09:10 Dose: 1 tab - Labs Labs: 10/04/16 06:45 10/04/16 06:45 PT 13.0 SECONDS (9.6-11.2) H 09/29/16 05:30 INR 1.25 (0.92-1.08) H 09/29/16 05:30 APTT 32.5 SECONDS (23.3-32.5) 09/29/16 05:30 - Constitutional Appears: No Acute Distress - Head Exam Head Exam: NORMAL INSPECTION - Eye Exam Eye Exam: Normal appearance - ENT Exam ENT Exam: Mucous Membranes Moist - Neck Exam Neck Exam: Normal Inspection - Respiratory Exam Respiratory Exam: Clear to Ausculation Bilateral, NORMAL BREATHING PATTERN - Cardiovascular Exam Cardiovascular Exam: REGULAR RHYTHM, +S1, +S2 - GI/Abdominal Exam GI & Abdominal Exam: Soft, Normal Bowel Sounds - Extremities Exam Additional comments: Dressing intact/dry and knee immobilizer in place R residual limb. Still sl edema left hand, otherwise OK. Femoral PICC line in place. - Back Exam Back Exam: NORMAL INSPECTION - Neurological Exam Neurological Exam: Alert, Awake, CN II-XII Intact, Oriented x3 - Psychiatric Exam Psychiatric exam: Normal Affect, Normal Mood - Skin Skin Exam: Warm Assessment and Plan (1) Osteomyelitis of ankle or foot Assessment & Plan: SEE SUBJECTIVE Status: Acute (2) ESRD (end stage renal disease) on dialysis Assessment & Plan: SEE SUBJECTIVE Status: Chronic (3) DM type 2 (diabetes mellitus, type 2) Assessment & Plan: SEE SUBJECTIVE Status: Chronic (4) Coagulopathy Assessment & Plan: SEE SUBJECTIVE Status: Chronic (5) Peripheral arterial occlusive disease Status: Chronic (6) Anemia, blood loss Assessment & Plan: SEE SUBJECTIVE Status: Acute
[2016-10-06] MEDS: Insulin Detemir 100 Units/ml Inj SC SCH (22:05)
[2016-10-07] MEDS: Meropenem 500 MG in Sodium Chloride 0.9% 100 ML IVPB SCH (00:11)
--- NOTE | 2016-10-07 02:14 | CP.PCM.PN ---
Subjective - Date & Time of Evaluation Date of Evaluation: 10/07/16 Time of Evaluation: 02:12 - Subjective Subjective: SURGERY PROGRESS NOTE FOR DR. MORATAYA 46F seen and examined at bedside. Patient states mild discomfort at site of operation, other orta no complaints. Objective - Vital Signs/Intake and Output Vital Signs (last 24 hours): Temp Pulse Resp BP Pulse Ox 98.3 F 116 H 20 117/49 L 100 10/06/16 16:36 10/06/16 16:36 10/06/16 16:36 10/06/16 16:36 10/06/16 16:36 - Medications Medications: Current Medications Acetaminophen (Tylenol 325mg Tab) 650 mg PO Q4 PRN PRN Reason: Fever >100.4 F Last Admin: 10/02/16 16:27 Dose: 650 mg Acetaminophen (Tylenol 325mg Tab) 650 mg PO Q4 PRN PRN Reason: Pain, moderate (4-7) Last Admin: 09/16/16 22:34 Dose: 650 mg Albuterol Sulfate (Albuterol 0.083% Inhal Barbie (2.5 Mg/3 Ml) Ud) 2.5 mg INH RQ4 PRN PRN Reason: Shortness of Breath Albuterol/Ipratropium (Duoneb 3 Mg/0.5 Mg (3 Ml) Ud) 3 ml INH RQ4 PRN PRN Reason: Shortness of Breath Apixaban (Eliquis) 5 mg PO BID [facility] PRN Reason: Protocol Apixaban (Eliquis) 5 mg PO BID [facility] PRN Reason: Protocol Stop: 10/09/16 06:00 Last Admin: 10/06/16 17:11 Dose: 5 mg Aspirin (Ecotrin) 81 mg PO DAILY [facility] Last Admin: 10/06/16 09:06 Dose: 81 mg Atorvastatin Calcium (Lipitor) 40 mg PO DAILY [facility] Last Admin: 10/06/16 09:09 Dose: 40 mg Benzonatate (Tessalon Perles) 200 mg PO TID PRN PRN Reason: Cough Last Admin: 10/02/16 14:07 Dose: 200 mg Cinacalcet (Sensipar) 30 mg PO DAILY [facility] Last Admin: 10/06/16 09:13 Dose: 30 mg Diphenhydramine HCl (Benadryl) 25 mg PO Q6 PRN PRN Reason: Itching / Pruritus Epoetin Tha (Procrit) 20,000 unit IV MWF [facility] Last Admin: 10/04/16 15:33 Dose: 20,000 unit Ergocalciferol (Drisdol 50,000 Intl Units Cap) 1 cap PO Q7D [facility] Stop: 11/06/16 11:16 Last Admin: 10/02/16 14:06 Dose: 1 cap Fluconazole (Diflucan) 100 mg PO DAILY [facility] Last Admin: 10/06/16 09:04 Dose: 100 mg Gabapentin (Neurontin) 300 mg PO TID [facility] Last Admin: 10/06/16 16:47 Dose: 300 mg Hydrocortisone (Anusol-Hc) 1 applic [place] BID [facility] Last Admin: 10/06/16 16:43 Dose: Not Given Hydromorphone HCl (Dilaudid) 1 mg IVP Q3H PRN PRN Reason: Pain, severe (8-10) Last Admin: 10/06/16 18:32 Dose: 1 mg Amikacin Sulfate 250 mg/ (Sodium Chloride) 101 mls @ 100.609 mls/hr [facility] Last Admin: 10/04/16 09:05 Dose: 100.609 mls/hr Meropenem 500 mg/ Sodium (Chloride) 100 mls @ 100 mls/hr IVPB DAILY@0100 [facility] Last Admin: 10/07/16 00:11 Dose: 100 mls/hr Piperacillin Sod/Tazobactam (Sod 2.25 gm/ Sodium Chloride) 100 mls @ 100 mls/ hr IVPB Q12@0600,1800 [facility] Last Admin: 10/06/16 17:08 Dose: 100 mls/hr Sodium Chloride (Sodium Chloride 0.9%) 1,000 mls @ 10 mls/hr IV .Q24H [facility] Last Admin: 10/05/16 17:30 Dose: 10 mls/hr Linezolid (Zyvox 600mg/300ml D5w) 600 mg in 300 mls @ 300 mls/hr IVPB Q12@0800, 2000 [facility] Last Admin: 10/06/16 20:32 Dose: 300 mls/hr Insulin Detemir (Levemir) 34 units SC HS [facility] Last Admin: 10/06/16 22:05 Dose: 34 units Insulin Human Lispro (Humalog) 10 units SC AC [facility] Last Admin: 10/06/16 16:44 Dose: 10 unit Lidocaine (Lidoderm) 1 ea TD DAILY [facility] Last Admin: 10/06/16 09:08 Dose: Not Given Medroxyprogesterone Acetate (Provera) 10 mg PO DAILY [facility] Last Admin: 10/06/16 09:12 Dose: 10 mg Nystatin (Mycostatin Oint) 1 applic TOP TID [facility] Last Admin: 10/06/16 16:46 Dose: 1 applic Ondansetron HCl (Zofran Inj) 4 mg IVP Q6 PRN PRN Reason: Nausea/Vomiting Last Admin: 09/19/16 10:26 Dose: 4 mg Pantoprazole Sodium (Protonix Ec Tab) 40 mg PO DAILY [facility] Last Admin: 10/06/16 09:12 Dose: 40 mg Sevelamer HCl (Renagel) 1,600 mg PO TID [facility] Last Admin: 10/06/16 16:47 Dose: 1,600 mg Topiramate (Topamax) 50 mg PO BID [facility] Last Admin: 10/06/16 16:49 Dose: 50 mg Vitamin B Complex/Vit C/Folic Acid (Nephro-Ajay) 1 tab PO DAILY [facility] Last Admin: 10/06/16 09:10 Dose: 1 tab - Labs Labs: 10/04/16 06:45 10/04/16 06:45 PT 13.0 SECONDS (9.6-11.2) H 09/29/16 05:30 INR 1.25 (0.92-1.08) H 09/29/16 05:30 APTT 32.5 SECONDS (23.3-32.5) 09/29/16 05:30 - Constitutional Appears: Non-toxic, No Acute Distress - Respiratory Exam Respiratory Exam: Clear to Ausculation Bilateral, NORMAL BREATHING PATTERN - Cardiovascular Exam Cardiovascular Exam: REGULAR RHYTHM, +S1, +S2 - Extremities Exam Additional comments: b/l BKA, dressings Clean dry intact, knee immobilizer in place. - Skin Skin Exam: Intact, Normal Color, Warm Assessment and Plan - Assessment and Plan (Free Text) Assessment: 46F s/p Right BKA POD#6 - Continue pain control prn - F/U H/H - Continue knee immobilizer to R stump - PT/OT - Blood thinners held for D&C as per OBGYN Further recs discuss with Dr. Easton Jordan, PGY1
[2016-10-07] MEDS: HYDROmorphone 0.5 mg/0.5 ml ISec IVP PRN ×3 (07:07→21:54)
[2016-10-07 07:12] LABS: BASO # 0.1 K/uL (0.0-0.2); BASO % 0.6 % (0.0-2.0); EOS # 0.6 K/uL (0.0-0.7); EOS % 5.1 % (0.0-4.0); HEMATOCRIT 26.4 % (34.0-47.0); LYMPH # 1.4 K/uL (1.0-4.3); LYMPH % 12.9 % (20.0-40.0); MEAN CELL VOLUME 91.2 fl (81.0-99.0); MEAN CORPUSCULAR HEMOGLOBIN 29.6 pg (27.0-31.0); MEAN CORPUSCULAR HGB CONC 32.4 g/dL (33.0-37.0); MEAN PLATELET VOLUME 8.4 fl (7.2-11.7); MONO # 1.1 K/uL (0.0-0.8); MONO % 9.4 % (0.0-10.0); NEUT # 8.1 K/uL (1.8-7.0); WHITE BLOOD COUNT 11.2 K/uL (4.8-10.8)
[2016-10-07 07:25] LABS: ALB/GLOB RATIO 0.7 (1.0-2.1); BILIRUBIN,TOTAL 0.5 mg/dl (0.2-1.3); POTASSIUM 4.3 MMOL/L (3.6-5.0); TOTAL PROTEIN 8.1 G/DL (6.3-8.2)
[2016-10-07 07:43] LABS: PARTIAL THROMBOPLASTIN TIME 32.3 SECONDS (23.3-32.5)
[2016-10-07] MEDS: Linezolid 600 mg in D5W 300 ml 600 MG/300 ML BAG IVPB SCH ×2 (08:29→20:07)
[2016-10-07] MEDS: Hydrocortisone 2.5% (Rectal) CREAM PR SCH ×2 (09:03→16:42)
[2016-10-07] MEDS: Insulin Lispro (humaLOG) 100 Units/ml Inj SC SCH ×2 (09:05→16:43)
[2016-10-07] MEDS: Lidocaine 5% Patch TD SCH (09:07)
[2016-10-07] MEDS: Multivitamin Vitamin B Complex (Nephro-Vite) Tab PO SCH (09:08)
[2016-10-07] MEDS: Nystatin Ointment TOP SCH ×3 (09:08→16:45)
[2016-10-07] MEDS: Pantoprazole 40 mg EC Tab PO SCH (09:09)
--- NOTE | 2016-10-07 09:38 | CP.PCM.PN ---
Subjective - Date & Time of Evaluation Date of Evaluation: 10/07/16 Time of Evaluation: 09:32 - Subjective Subjective: Dr xavier's note seen, and pathology report reviewed. Pt does have acute osteomyelitis. There is also purulent drainage under the skin showing ran. She is being treated for all this by Dr Lemon. Pt has been started on eliquis which will be discontinued 48 hrs before the D&C scheduled for October 11. Will restart right after the procedure. Aspirin was stopped 3 days ago. Her hgb is 8.6gms . Will wait till fri to transfuse her with dialysis. Objective - Vital Signs/Intake and Output Vital Signs (last 24 hours): Temp Pulse Resp BP Pulse Ox 97.7 F 120 H 18 96/55 L 95 10/07/16 07:32 10/07/16 07:32 10/07/16 07:32 10/07/16 07:32 10/07/16 07:32 - Medications Medications: Current Medications Acetaminophen (Tylenol 325mg Tab) 650 mg PO Q4 PRN PRN Reason: Fever >100.4 F Last Admin: 10/02/16 16:27 Dose: 650 mg Acetaminophen (Tylenol 325mg Tab) 650 mg PO Q4 PRN PRN Reason: Pain, moderate (4-7) Last Admin: 09/16/16 22:34 Dose: 650 mg Albuterol Sulfate (Albuterol 0.083% Inhal Barbie (2.5 Mg/3 Ml) Ud) 2.5 mg INH RQ4 PRN PRN Reason: Shortness of Breath Albuterol/Ipratropium (Duoneb 3 Mg/0.5 Mg (3 Ml) Ud) 3 ml INH RQ4 PRN PRN Reason: Shortness of Breath Apixaban (Eliquis) 5 mg PO BID [facility] PRN Reason: Protocol Apixaban (Eliquis) 5 mg PO BID [facility] PRN Reason: Protocol Stop: 10/09/16 06:00 Last Admin: 10/07/16 09:05 Dose: 5 mg Aspirin (Ecotrin) 81 mg PO DAILY [facility] Last Admin: 10/06/16 09:06 Dose: 81 mg Atorvastatin Calcium (Lipitor) 40 mg PO DAILY [facility] Last Admin: 10/07/16 09:07 Dose: 40 mg Benzonatate (Tessalon Perles) 200 mg PO TID PRN PRN Reason: Cough Last Admin: 10/02/16 14:07 Dose: 200 mg Cinacalcet (Sensipar) 30 mg PO DAILY [facility] Last Admin: 10/07/16 09:11 Dose: 30 mg Diphenhydramine HCl (Benadryl) 25 mg PO Q6 PRN PRN Reason: Itching / Pruritus Epoetin Tha (Procrit) 20,000 [place] [facility] [place] Last Admin: 10/04/16 15:33 Dose: 20,000 unit Ergocalciferol (Drisdol 50,000 Intl Units Cap) 1 cap PO Q7D [facility] Stop: 11/06/16 11:16 Last Admin: 10/02/16 14:06 Dose: 1 cap Fluconazole (Diflucan) 100 mg PO DAILY [facility] Last Admin: 10/07/16 09:04 Dose: 100 mg Gabapentin (Neurontin) 300 mg PO TID [facility] Last Admin: 10/07/16 09:08 Dose: 300 mg Hydrocortisone (Anusol-Hc) 1 applic NE BID [facility] Last Admin: 10/07/16 09:03 Dose: Not Given Hydromorphone HCl (Dilaudid) 1 mg IVP Q3H PRN PRN Reason: Pain, severe (8-10) Last Admin: 10/07/16 07:07 Dose: 1 mg Amikacin Sulfate 250 mg/ (Sodium Chloride) 101 mls @ 100.609 mls/hr [facility] Last Admin: 10/07/16 09:01 Dose: 100.609 mls/hr Meropenem 500 mg/ Sodium (Chloride) 100 mls @ 100 mls/hr IVPB DAILY@0100 [facility] Last Admin: 10/07/16 00:11 Dose: 100 mls/hr Piperacillin Sod/Tazobactam (Sod 2.25 gm/ Sodium Chloride) 100 mls @ 100 mls/ hr IVPB Q12@0600,1800 [facility] Last Admin: 10/07/16 05:27 Dose: 100 mls/hr Sodium Chloride (Sodium Chloride 0.9%) 1,000 mls @ 10 mls/hr IV .Q24H [facility] Last Admin: 10/05/16 17:30 Dose: 10 mls/hr Linezolid (Zyvox 600mg/300ml D5w) 600 mg in 300 mls @ 300 mls/hr IVPB Q12@0800, 2000 [facility] Last Admin: 10/07/16 08:29 Dose: 300 mls/hr Insulin Detemir (Levemir) 34 units SC HS [facility] Last Admin: 10/06/16 22:05 Dose: 34 units Insulin Human Lispro (Humalog) 10 units SC AC [facility] Last Admin: 10/07/16 09:05 Dose: 10 unit Lidocaine (Lidoderm) 1 ea TD DAILY [facility] Last Admin: 10/07/16 09:07 Dose: 1 ea Medroxyprogesterone Acetate (Provera) 10 mg PO DAILY [facility] Last Admin: 10/07/16 09:10 Dose: 10 mg Nystatin (Mycostatin Oint) 1 applic TOP TID [facility] Last Admin: 10/07/16 09:08 Dose: 1 applic Ondansetron HCl (Zofran Inj) 4 mg IVP Q6 PRN PRN Reason: Nausea/Vomiting Last Admin: 09/19/16 10:26 Dose: 4 mg Pantoprazole Sodium (Protonix Ec Tab) 40 mg PO DAILY [facility] Last Admin: 10/07/16 09:09 Dose: 40 mg Sevelamer HCl (Renagel) 1,600 mg PO TID [facility] Last Admin: 10/07/16 09:10 Dose: 1,600 mg Topiramate (Topamax) 50 mg PO BID [facility] Last Admin: 10/07/16 09:11 Dose: 50 mg Vitamin B Complex/Vit C/Folic Acid (Nephro-Ajay) 1 tab PO DAILY [facility] Last Admin: 10/07/16 09:08 Dose: 1 tab - Labs Labs: 10/07/16 06:30 10/07/16 06:30 PT 12.0 SECONDS (9.6-11.2) H 10/07/16 06:30 INR 1.15 (0.92-1.08) H 10/07/16 06:30 APTT 32.3 SECONDS (23.3-32.5) 10/07/16 06:30
--- NOTE | 2016-10-07 11:32 | PN ---
DATE: 10/07/2016 ENDO FOLLOWUP NOTE ROOM: 663. SUBJECTIVE: This is a 46-year-old female who underwent a right below-knee amputation for management of severe peripheral arterial vasculopathy and underlying right heel osteomyelitis, and is now being followed postoperatively for metabolic management as noted. Her glycemic levels are fluctuating, but much improved at this time. LABORATORY DATA: The latest chemistries showed a BUN of 34, sodium 136, potassium 4.3, chloride 98, CO2 of 23, glucose 110, and creatinine 7.3. So, at this time, we will continue the same basal and bolus insulin regimen, which was modified recen brad and keep her on the Levemir given as 34 units subQ at bedtime daily as ordered. We will continue the Humalog given as 10 units subQ t.i.d. before meals as given. We will titrate incrementally as i ndicated to optimize metabolic control. We will obtain serial chemistries and supplement accordingly as needed. We will follow. Irene Ambrose MD cc: [id number] TT: 10/07/2016 11:31:50 Confirmation # [id number] Dictation # [id number]
--- NOTE | 2016-10-07 12:57 | CP.PCM.PN ---
Subjective - Date & Time of Evaluation Date of Evaluation: 10/07/16 Time of Evaluation: 12:47 - Subjective Subjective: Patient is doing well this morning. She has no acute complaints. Pain is adequately controlled. She tolerates PO and is able to participate with PT/OT. Patient is afebrile with stable vital signs at the baseline. WBC is still elevated, but declining. Review of systems and physical exam are overall benign. Right BKA stump wound was examined at the bedside. The wound appears to be healing with no evidence of infection at present. There is no erythema, cellulitis or purulent discharge. Continue supportive care. Dressing changes daily. Objective - Vital Signs/Intake and Output Vital Signs (last 24 hours): Temp Pulse Resp BP Pulse Ox 97.7 F 120 H 18 96/55 L 95 10/07/16 07:32 10/07/16 07:32 10/07/16 07:32 10/07/16 07:32 10/07/16 07:32 - Medications Medications: Current Medications Acetaminophen (Tylenol 325mg Tab) 650 mg PO Q4 PRN PRN Reason: Fever >100.4 F Last Admin: 10/02/16 16:27 Dose: 650 mg Acetaminophen (Tylenol 325mg Tab) 650 mg PO Q4 PRN PRN Reason: Pain, moderate (4-7) Last Admin: 09/16/16 22:34 Dose: 650 mg Albuterol Sulfate (Albuterol 0.083% Inhal Barbie (2.5 Mg/3 Ml) Ud) 2.5 mg INH RQ4 PRN PRN Reason: Shortness of Breath Albuterol/Ipratropium (Duoneb 3 Mg/0.5 Mg (3 Ml) Ud) 3 ml INH RQ4 PRN PRN Reason: Shortness of Breath Apixaban (Eliquis) 5 mg PO BID [facility] PRN Reason: Protocol Apixaban (Eliquis) 5 mg PO BID [facility] PRN Reason: Protocol Stop: 10/09/16 06:00 Last Admin: 10/07/16 09:05 Dose: 5 mg Aspirin (Ecotrin) 81 mg PO DAILY [facility] Last Admin: 10/06/16 09:06 Dose: 81 mg Atorvastatin Calcium (Lipitor) 40 mg PO DAILY [facility] Last Admin: 10/07/16 09:07 Dose: 40 mg Benzonatate (Tessalon Perles) 200 mg PO TID PRN PRN Reason: Cough Last Admin: 10/02/16 14:07 Dose: 200 mg Cinacalcet (Sensipar) 30 mg PO DAILY [facility] Last Admin: 10/07/16 09:11 Dose: 30 mg Diphenhydramine HCl (Benadryl) 25 mg PO Q6 PRN PRN Reason: Itching / Pruritus Epoetin Tha (Procrit) 20,000 unit IV [facility] [place] [place] Last Admin: 10/04/16 15:33 Dose: 20,000 unit Ergocalciferol (Drisdol 50,000 Intl Units Cap) 1 cap PO Q7D [facility] Stop: 11/06/16 11:16 Last Admin: 10/02/16 14:06 Dose: 1 cap Fluconazole (Diflucan) 100 mg PO DAILY [facility] Last Admin: 10/07/16 09:04 Dose: 100 mg Gabapentin (Neurontin) 300 mg PO TID [facility] Last Admin: 10/07/16 09:08 Dose: 300 mg Hydrocortisone (Anusol-Hc) 1 applic [place] BID [facility] Last Admin: 10/07/16 09:03 Dose: Not Given Hydromorphone HCl (Dilaudid) 1 mg IVP Q3H PRN PRN Reason: Pain, severe (8-10) Last Admin: 10/07/16 07:07 Dose: 1 mg Amikacin Sulfate 250 mg/ (Sodium Chloride) 101 mls @ 100.609 mls/hr IVPB [facility] Last Admin: 10/07/16 09:01 Dose: 100.609 mls/hr Meropenem 500 mg/ Sodium (Chloride) 100 mls @ 100 mls/hr IVPB DAILY@0100 [facility] Last Admin: 10/07/16 00:11 Dose: 100 mls/hr Piperacillin Sod/Tazobactam (Sod 2.25 gm/ Sodium Chloride) 100 mls @ 100 mls/ hr IVPB Q12@0600,1800 [facility] Last Admin: 10/07/16 05:27 Dose: 100 mls/hr Sodium Chloride (Sodium Chloride 0.9%) 1,000 mls @ 10 mls/hr IV .Q24H [facility] Last Admin: 10/05/16 17:30 Dose: 10 mls/hr Linezolid (Zyvox 600mg/300ml D5w) 600 mg in 300 mls @ 300 mls/hr IVPB Q12@0800, 2000 [facility] Last Admin: 10/07/16 08:29 Dose: 300 mls/hr Insulin Detemir (Levemir) 34 units SC HS [facility] Last Admin: 10/06/16 22:05 Dose: 34 units Insulin Human Lispro (Humalog) 10 units SC AC [facility] Last Admin: 10/07/16 09:05 Dose: 10 unit Lidocaine (Lidoderm) 1 ea TD DAILY [facility] Last Admin: 10/07/16 09:07 Dose: 1 ea Medroxyprogesterone Acetate (Provera) 10 mg PO DAILY [facility] Last Admin: 10/07/16 09:10 Dose: 10 mg Nystatin (Mycostatin Oint) 1 applic TOP TID [facility] Last Admin: 10/07/16 09:08 Dose: 1 applic Ondansetron HCl (Zofran Inj) 4 mg IVP Q6 PRN PRN Reason: Nausea/Vomiting Last Admin: 09/19/16 10:26 Dose: 4 mg Pantoprazole Sodium (Protonix Ec Tab) 40 mg PO DAILY [facility] Last Admin: 10/07/16 09:09 Dose: 40 mg Sevelamer HCl (Renagel) 1,600 mg PO TID [facility] Last Admin: 10/07/16 09:10 Dose: 1,600 mg Topiramate (Topamax) 50 mg PO BID [facility] Last Admin: 10/07/16 09:11 Dose: 50 mg Vitamin B Complex/Vit C/Folic Acid (Nephro-Ajay) 1 tab PO DAILY [facility] Last Admin: 10/07/16 09:08 Dose: 1 tab - Labs Labs: 10/07/16 06:30 10/07/16 06:30 PT 12.0 SECONDS (9.6-11.2) H 10/07/16 06:30 INR 1.15 (0.92-1.08) H 10/07/16 06:30 APTT 32.3 SECONDS (23.3-32.5) 10/07/16 06:30 - Constitutional Appears: Well, Non-toxic, No Acute Distress - Head Exam Head Exam: NORMOCEPHALIC - Eye Exam Eye Exam: Normal appearance - ENT Exam ENT Exam: Mucous Membranes Moist - Respiratory Exam Respiratory Exam: Clear to Ausculation Bilateral, NORMAL BREATHING PATTERN - Cardiovascular Exam Cardiovascular Exam: REGULAR RHYTHM - GI/Abdominal Exam GI & Abdominal Exam: Soft - Extremities Exam Extremities Exam: Normal Inspection - Skin Skin Exam: Normal Color, Warm
--- NOTE | 2016-10-07 14:02 | CP.PCM.PN ---
Subjective - Date & Time of Evaluation Date of Evaluation: 10/07/16 Time of Evaluation: 01:30 - Subjective Subjective: Comfortable in bed No sob Objective - Vital Signs/Intake and Output Vital Signs (last 24 hours): Temp Pulse Resp BP Pulse Ox 97.7 F 120 H 18 96/55 L 95 10/07/16 07:32 10/07/16 07:32 10/07/16 07:32 10/07/16 07:32 10/07/16 07:32 - Medications Medications: Current Medications Acetaminophen (Tylenol 325mg Tab) 650 mg PO Q4 PRN PRN Reason: Fever >100.4 F Last Admin: 10/02/16 16:27 Dose: 650 mg Acetaminophen (Tylenol 325mg Tab) 650 mg PO Q4 PRN PRN Reason: Pain, moderate (4-7) Last Admin: 09/16/16 22:34 Dose: 650 mg Albuterol Sulfate (Albuterol 0.083% Inhal Barbie (2.5 Mg/3 Ml) Ud) 2.5 mg INH RQ4 PRN PRN Reason: Shortness of Breath Albuterol/Ipratropium (Duoneb 3 Mg/0.5 Mg (3 Ml) Ud) 3 ml INH RQ4 PRN PRN Reason: Shortness of Breath Apixaban (Eliquis) 5 mg PO BID [facility] PRN Reason: Protocol Apixaban (Eliquis) 5 mg PO BID [facility] PRN Reason: Protocol Stop: 10/09/16 06:00 Last Admin: 10/07/16 09:05 Dose: 5 mg Aspirin (Ecotrin) 81 mg PO DAILY [facility] Last Admin: 10/06/16 09:06 Dose: 81 mg Atorvastatin Calcium (Lipitor) 40 mg PO DAILY [facility] Last Admin: 10/07/16 09:07 Dose: 40 mg Benzonatate (Tessalon Perles) 200 mg PO TID PRN PRN Reason: Cough Last Admin: 10/02/16 14:07 Dose: 200 mg Cinacalcet (Sensipar) 30 mg PO DAILY [facility] Last Admin: 10/07/16 09:11 Dose: 30 mg Diphenhydramine HCl (Benadryl) 25 mg PO Q6 PRN PRN Reason: Itching / Pruritus Epoetin Tha (Procrit) 20,000 unit IV F [facility] Last Admin: 10/04/16 15:33 Dose: 20,000 unit Ergocalciferol (Drisdol 50,000 Intl Units Cap) 1 cap PO Q7D [facility] Stop: 11/06/16 11:16 Last Admin: 10/02/16 14:06 Dose: 1 cap Fluconazole (Diflucan) 100 mg PO DAILY [facility] Last Admin: 10/07/16 09:04 Dose: 100 mg Gabapentin (Neurontin) 300 mg PO TID [facility] Last Admin: 10/07/16 09:08 Dose: 300 mg Hydrocortisone (Anusol-Hc) 1 applic [place] BID [facility] Last Admin: 10/07/16 09:03 Dose: Not Given Hydromorphone HCl (Dilaudid) 1 mg IVP Q3H PRN PRN Reason: Pain, severe (8-10) Last Admin: 10/07/16 07:07 Dose: 1 mg Amikacin Sulfate 250 mg/ (Sodium Chloride) 101 mls @ 100.609 mls/hr IVPB MWF [facility] Last Admin: 10/07/16 09:01 Dose: 100.609 mls/hr Meropenem 500 mg/ Sodium (Chloride) 100 mls @ 100 mls/hr IVPB DAILY@0100 [facility] Last Admin: 10/07/16 00:11 Dose: 100 mls/hr Piperacillin Sod/Tazobactam (Sod 2.25 gm/ Sodium Chloride) 100 mls @ 100 mls/ hr IVPB Q12@0600,1800 [facility] Last Admin: 10/07/16 05:27 Dose: 100 mls/hr Sodium Chloride (Sodium Chloride 0.9%) 1,000 mls @ 10 mls/hr IV .Q24H [facility] Last Admin: 10/05/16 17:30 Dose: 10 mls/hr Linezolid (Zyvox 600mg/300ml D5w) 600 mg in 300 mls @ 300 mls/hr IVPB Q12@0800, 2000 [facility] Last Admin: 10/07/16 08:29 Dose: 300 mls/hr Insulin Detemir (Levemir) 34 units SC HS [facility] Last Admin: 10/06/16 22:05 Dose: 34 units Insulin Human Lispro (Humalog) 10 units SC AC [facility] Last Admin: 10/07/16 09:05 Dose: 10 unit Lidocaine (Lidoderm) 1 ea TD DAILY [facility] Last Admin: 10/07/16 09:07 Dose: 1 ea Medroxyprogesterone Acetate (Provera) 10 mg PO DAILY [facility] Last Admin: 10/07/16 09:10 Dose: 10 mg Nystatin (Mycostatin Oint) 1 applic TOP TID [facility] Last Admin: 10/07/16 09:08 Dose: 1 applic Ondansetron HCl (Zofran Inj) 4 mg IVP Q6 PRN PRN Reason: Nausea/Vomiting Last Admin: 09/19/16 10:26 Dose: 4 mg Pantoprazole Sodium (Protonix Ec Tab) 40 mg PO DAILY [facility] Last Admin: 10/07/16 09:09 Dose: 40 mg Sevelamer HCl (Renagel) 1,600 mg PO TID [facility] Last Admin: 10/07/16 09:10 Dose: 1,600 mg Topiramate (Topamax) 50 mg PO BID [facility] Last Admin: 10/07/16 09:11 Dose: 50 mg Vitamin B Complex/Vit C/Folic Acid (Nephro-Ajay) 1 tab PO DAILY [facility] Last Admin: 10/07/16 09:08 Dose: 1 tab - Labs Labs: 10/07/16 06:30 10/07/16 06:30 PT 12.0 SECONDS (9.6-11.2) H 10/07/16 06:30 INR 1.15 (0.92-1.08) H 10/07/16 06:30 APTT 32.3 SECONDS (23.3-32.5) 10/07/16 06:30 - Respiratory Exam Additional comments: Lungs clear - Cardiovascular Exam Cardiovascular Exam: REGULAR RHYTHM - Extremities Exam Additional comments: B/L BKA Assessment and Plan - Assessment and Plan (Free Text) Assessment: ESRD for HD today PVD, S/p recent Rt BKA Leukocytosis resolving IDDM Anemia Plan: Continue HD per schedule Labs stable Monitor Hb
--- NOTE | 2016-10-07 17:50 | CP.PCM.PN ---
Subjective - Date & Time of Evaluation Date of Evaluation: 10/07/16 Time of Evaluation: 17:43 - Subjective Subjective: Notes by Easton Almonte, Evita Shepard and Anitha kwok. R BK wound appears to be healing well, per Dr. Mccormack. We must continue the iv antibiotics because we know from sad experience that even after amputation, there is still the risk of infection bacteremia (and in this case risk of infection for the Permacath and PICC lines). Also we want to protect against endometritis following the D & C planned for October 11. Patient is off aspirin. She will stop Eliquis after Friday evening's dose to allow for 48 hours off this anticoagulant prior to the October 11 procedure. Patient is having hemodialysis now. Feels slightly cold, but no fevers. No cough or chest pain. Appetite is good. DM well controlled on current regimen. I note the request by dietitian for change in carbohydrates, but I am afraid to make a change now because of the risk of lhypoglycemia. Will discuss with Dr. Ambrose . Objective - Vital Signs/Intake and Output Vital Signs (last 24 hours): Temp Pulse Resp BP Pulse Ox 98.6 F 95 H 18 99/64 L 95 10/07/16 15:30 10/07/16 15:30 10/07/16 15:30 10/07/16 15:30 10/07/16 15:30 - Medications Medications: Current Medications Acetaminophen (Tylenol 325mg Tab) 650 mg PO Q4 PRN PRN Reason: Fever >100.4 F Last Admin: 10/02/16 16:27 Dose: 650 mg Acetaminophen (Tylenol 325mg Tab) 650 mg PO Q4 PRN PRN Reason: Pain, moderate (4-7) Last Admin: 09/16/16 22:34 Dose: 650 mg Albuterol Sulfate (Albuterol 0.083% Inhal Barbie (2.5 Mg/3 Ml) Ud) 2.5 mg INH RQ4 PRN PRN Reason: Shortness of Breath Albuterol/Ipratropium (Duoneb 3 Mg/0.5 Mg (3 Ml) Ud) 3 ml INH RQ4 PRN PRN Reason: Shortness of Breath Apixaban (Eliquis) 5 mg PO BID [facility] PRN Reason: Protocol Apixaban (Eliquis) 5 mg PO BID [facility] PRN Reason: Protocol Stop: 10/09/16 06:00 Last Admin: 10/07/16 09:05 Dose: 5 mg Aspirin (Ecotrin) 81 mg PO DAILY [facility] Last Admin: 10/06/16 09:06 Dose: 81 mg Atorvastatin Calcium (Lipitor) 40 mg PO DAILY [facility] Last Admin: 10/07/16 09:07 Dose: 40 mg Benzonatate (Tessalon Perles) 200 mg PO TID PRN PRN Reason: Cough Last Admin: 10/02/16 14:07 Dose: 200 mg Cinacalcet (Sensipar) 30 mg PO DAILY [facility] Last Admin: 10/07/16 09:11 Dose: 30 mg Diphenhydramine HCl (Benadryl) 25 mg PO Q6 PRN PRN Reason: Itching / Pruritus Epoetin Tha (Procrit) [facility] Last Admin: 10/04/16 15:33 Dose: 20,000 unit Ergocalciferol (Drisdol 50,000 Intl Units Cap) 1 cap PO Q7D [facility] Stop: 11/06/16 11:16 Last Admin: 10/02/16 14:06 Dose: 1 cap Fluconazole (Diflucan) 100 mg PO DAILY [facility] Last Admin: 10/07/16 09:04 Dose: 100 mg Gabapentin (Neurontin) 300 mg PO TID [facility] Last Admin: 10/07/16 16:46 Dose: 300 mg Hydrocortisone (Anusol-Hc) 1 applic [place] BID [facility] Last Admin: 10/07/16 16:42 Dose: Not Given Hydromorphone HCl (Dilaudid) 1 mg IVP Q3H PRN PRN Reason: Pain, severe (8-10) Last Admin: 10/07/16 07:07 Dose: 1 mg Amikacin Sulfate 250 mg/ (Sodium Chloride) 101 mls @ 100.609 mls/hr IVPB MWF [facility] Last Admin: 10/07/16 09:01 Dose: 100.609 mls/hr Meropenem 500 mg/ Sodium (Chloride) 100 mls @ 100 mls/hr IVPB DAILY@0100 [facility] Last Admin: 10/07/16 00:11 Dose: 100 mls/hr Piperacillin Sod/Tazobactam (Sod 2.25 gm/ Sodium Chloride) 100 mls @ 100 mls/ hr IVPB Q12@0600,1800 [facility] Last Admin: 10/07/16 05:27 Dose: 100 mls/hr Sodium Chloride (Sodium Chloride 0.9%) 1,000 mls @ 10 mls/hr IV .Q24H [facility] Last Admin: 10/05/16 17:30 Dose: 10 mls/hr Linezolid (Zyvox 600mg/300ml D5w) 600 mg in 300 mls @ 300 mls/hr IVPB Q12@0800, 2000 [facility] Last Admin: 10/07/16 08:29 Dose: 300 mls/hr Insulin Detemir (Levemir) 34 units SC HS [facility] Last Admin: 10/06/16 22:05 Dose: 34 units Insulin Human Lispro (Humalog) 10 units SC AC [facility] Last Admin: 10/07/16 16:43 Dose: 10 unit Lidocaine (Lidoderm) 1 ea TD DAILY [facility] Last Admin: 10/07/16 09:07 Dose: 1 ea Medroxyprogesterone Acetate (Provera) 10 mg PO DAILY [facility] Last Admin: 10/07/16 09:10 Dose: 10 mg Nystatin (Mycostatin Oint) 1 applic TOP TID [facility] Last Admin: 10/07/16 16:45 Dose: 1 applic Ondansetron HCl (Zofran Inj) 4 mg IVP Q6 PRN PRN Reason: Nausea/Vomiting Last Admin: 09/19/16 10:26 Dose: 4 mg Pantoprazole Sodium (Protonix Ec Tab) 40 mg PO DAILY [facility] Last Admin: 10/07/16 09:09 Dose: 40 mg Sevelamer HCl (Renagel) 1,600 mg PO TID [facility] Last Admin: 10/07/16 16:48 Dose: 1,600 mg Topiramate (Topamax) 50 mg PO BID [facility] Last Admin: 10/07/16 16:49 Dose: 50 mg Vitamin B Complex/Vit C/Folic Acid (Nephro-Ajay) 1 tab PO DAILY [facility] Last Admin: 10/07/16 09:08 Dose: 1 tab - Labs Labs: 10/07/16 06:30 10/07/16 06:30 PT 12.0 SECONDS (9.6-11.2) H 10/07/16 06:30 INR 1.15 (0.92-1.08) H 10/07/16 06:30 APTT 32.3 SECONDS (23.3-32.5) 10/07/16 06:30 - Constitutional Appears: No Acute Distress - Head Exam Head Exam: NORMAL INSPECTION - Eye Exam Eye Exam: Normal appearance - ENT Exam ENT Exam: Mucous Membranes Moist - Neck Exam Neck Exam: Normal Inspection - Respiratory Exam Respiratory Exam: Clear to Ausculation Bilateral, NORMAL BREATHING PATTERN - Cardiovascular Exam Cardiovascular Exam: REGULAR RHYTHM, +S1, +S2 - GI/Abdominal Exam GI & Abdominal Exam: Soft - Extremities Exam Additional comments: Right BK amputation site has been redressed by Dr. Mccormack with Telfa and DSD and DEMIAN wrap. L BK residual limb in DEMIAN wrap for shrinkage purposes. Hands are warm and with no open lesions. L femoral v. PICC line in place. - Back Exam Back Exam: NORMAL INSPECTION - Neurological Exam Neurological Exam: Alert, Awake, CN II-XII Intact, Oriented x3 - Psychiatric Exam Psychiatric exam: Normal Affect, Normal Mood - Skin Skin Exam: Dry, Normal Color, Warm Additional comments: Allevyn dressing on buttock could not be examined while pt on dialysis. Assessment and Plan (1) Osteomyelitis of ankle or foot Assessment & Plan: SEE SUBJECTIVE Status: Acute (2) ESRD (end stage renal disease) on dialysis Assessment & Plan: SEE SUBJECTIVE Status: Chronic (3) DM type 2 (diabetes mellitus, type 2) Assessment & Plan: SEE SUBJECTIVE Status: Chronic (4) Coagulopathy Assessment & Plan: SEE SUBJECTIVE Status: Chronic (5) Anemia, blood loss Assessment & Plan: Dr. Evita Shepard plans to transfuse rbc's on 10/09 in anticipation of surgical procedure on 10/11. Status: Acute (6) Peripheral arterial occlusive disease Status: Chronic
[2016-10-07] MEDS: Epoetin Alfa 20000 UNIT/ML Inj IV SCH (19:36)
[2016-10-07] MEDS: Insulin Detemir 100 Units/ml Inj SC SCH (22:21)
[2016-10-08] MEDS: Meropenem 500 MG in Sodium Chloride 0.9% 100 ML IVPB SCH (00:54)
--- NOTE | 2016-10-08 01:03 | CP.PCM.PN ---
Subjective - Date & Time of Evaluation Date of Evaluation: 10/07/16 Time of Evaluation: 20:10 - Subjective Subjective: No seizures are reported. she is compliant with her tests and her treatment. She is receiving her IV Antibiotics and is not suffering from abnormal Blood Glucose levels. She is Followed by Endocrinology. Her VS are Normal except for mild fluctuations of her blood Pressure and of her Heart Rate. She is an ESRD patient receiving Hemodialysis. After receiving her PRBC transfusion, she is still anemic. Objective - Vital Signs/Intake and Output Vital Signs (last 24 hours): Temp Pulse Resp BP Pulse Ox 98.6 F 95 H 18 99/64 L 95 10/07/16 15:30 10/07/16 15:30 10/07/16 15:30 10/07/16 15:30 10/07/16 15:30 - Medications Medications: Current Medications Acetaminophen (Tylenol 325mg Tab) 650 mg PO Q4 PRN PRN Reason: Fever >100.4 F Last Admin: 10/02/16 16:27 Dose: 650 mg Acetaminophen (Tylenol 325mg Tab) 650 mg PO Q4 PRN PRN Reason: Pain, moderate (4-7) Last Admin: 09/16/16 22:34 Dose: 650 mg Albuterol Sulfate (Albuterol 0.083% Inhal Barbie (2.5 Mg/3 Ml) Ud) 2.5 mg INH RQ4 PRN PRN Reason: Shortness of Breath Albuterol/Ipratropium (Duoneb 3 Mg/0.5 Mg (3 Ml) Ud) 3 ml INH RQ4 PRN PRN Reason: Shortness of Breath Apixaban (Eliquis) 5 mg PO BID [facility] PRN Reason: Protocol Apixaban (Eliquis) 5 mg PO BID [facility] PRN Reason: Protocol Stop: 10/09/16 06:00 Last Admin: 10/07/16 20:06 Dose: 5 mg Aspirin (Ecotrin) 81 mg PO DAILY [facility] Last Admin: 10/06/16 09:06 Dose: 81 mg Atorvastatin Calcium (Lipitor) 40 mg PO DAILY [facility] Last Admin: 10/07/16 09:07 Dose: 40 mg Benzonatate (Tessalon Perles) 200 mg PO TID PRN PRN Reason: Cough Last Admin: 10/02/16 14:07 Dose: 200 mg Cinacalcet (Sensipar) 30 mg PO DAILY [facility] Last Admin: 10/07/16 09:11 Dose: 30 mg Diphenhydramine HCl (Benadryl) 25 mg PO Q6 PRN PRN Reason: Itching / Pruritus Epoetin Tha (Procrit) 20,000 unit IV MWF [facility] Last Admin: 10/07/16 19:36 Dose: 20,000 unit Ergocalciferol (Drisdol 50,000 Intl Units Cap) 1 cap PO Q7D [facility] Stop: 11/06/16 11:16 Last Admin: 10/02/16 14:06 Dose: 1 cap Fluconazole (Diflucan) 100 mg PO DAILY [facility] Last Admin: 10/07/16 09:04 Dose: 100 mg Gabapentin (Neurontin) 300 mg PO TID [facility] Last Admin: 10/07/16 16:46 Dose: 300 mg Hydrocortisone (Anusol-Hc) 1 applic [place] BID [facility] Last Admin: 10/07/16 16:42 Dose: Not Given Hydromorphone HCl (Dilaudid) 1 mg IVP Q3H PRN PRN Reason: Pain, severe (8-10) Last Admin: 10/07/16 21:54 Dose: 1 mg Amikacin Sulfate 250 mg/ (Sodium Chloride) 101 mls @ 100.609 mls/hr IVPB [facility] Last Admin: 10/07/16 09:01 Dose: 100.609 mls/hr Meropenem 500 mg/ Sodium (Chloride) 100 mls @ 100 mls/hr IVPB DAILY@0100 [facility] Last Admin: 10/08/16 00:54 Dose: 100 mls/hr Piperacillin Sod/Tazobactam (Sod 2.25 gm/ Sodium Chloride) 100 mls @ 100 mls/ hr IVPB Q12@0600,1800 [facility] Last Admin: 10/07/16 18:19 Dose: 100 mls/hr Sodium Chloride (Sodium Chloride 0.9%) 1,000 mls @ 10 mls/hr IV .Q24H [facility] Last Admin: 10/05/16 17:30 Dose: 10 mls/hr Linezolid (Zyvox 600mg/300ml D5w) 600 mg in 300 mls @ 300 mls/hr IVPB Q12@0800, 2000 [facility] Last Admin: 10/07/16 20:07 Dose: 300 mls/hr Insulin Detemir (Levemir) 34 units SC HS [facility] Last Admin: 10/07/16 22:21 Dose: 34 units Insulin Human Lispro (Humalog) 10 units SC AC [facility] Last Admin: 10/07/16 16:43 Dose: 10 unit Lidocaine (Lidoderm) 1 ea TD DAILY [facility] Last Admin: 10/07/16 09:07 Dose: 1 ea Medroxyprogesterone Acetate (Provera) 10 mg PO DAILY [facility] Last Admin: 10/07/16 09:10 Dose: 10 mg Nystatin (Mycostatin Oint) 1 applic TOP TID [facility] Last Admin: 10/07/16 16:45 Dose: 1 applic Ondansetron HCl (Zofran Inj) 4 mg IVP Q6 PRN PRN Reason: Nausea/Vomiting Last Admin: 09/19/16 10:26 Dose: 4 mg Pantoprazole Sodium (Protonix Ec Tab) 40 mg PO DAILY [facility] Last Admin: 10/07/16 09:09 Dose: 40 mg Sevelamer HCl (Renagel) 1,600 mg PO TID [facility] Last Admin: 10/07/16 16:48 Dose: 1,600 mg Topiramate (Topamax) 50 mg PO BID [facility] Last Admin: 10/07/16 16:49 Dose: 50 mg Vitamin B Complex/Vit C/Folic Acid (Nephro-Ajay) 1 tab PO DAILY [facility] Last Admin: 10/07/16 09:08 Dose: 1 tab - Labs Labs: 10/07/16 06:30 10/07/16 06:30 PT 12.0 SECONDS (9.6-11.2) H 10/07/16 06:30 INR 1.15 (0.92-1.08) H 10/07/16 06:30 APTT 32.3 SECONDS (23.3-32.5) 10/07/16 06:30 Assessment and Plan (1) Diabetes Status: Chronic (2) ESRD (end stage renal disease) Status: Chronic (3) Cellulitis of leg Status: Acute (4) Hyperlipidemia Status: Chronic (5) Back pain Status: Acute (6) Bacteremia due to Gram-negative bacteria Status: Acute (7) Diabetes mellitus type 2 with peripheral artery disease Status: Acute (8) PVD (peripheral vascular disease) Status: Acute (9) Osteomyelitis of right foot Status: Acute (10) Fungal infection right foot Status: Acute
--- NOTE | 2016-10-08 08:15 | CP.PCM.PN ---
Subjective - Date & Time of Evaluation Date of Evaluation: 10/08/16 Time of Evaluation: 08:13 - Subjective Subjective: This is a vascular surgery progress note for Dr. Mccormack: 46 y/o female seen at bedside this morning resting comfortably in NAD and AAOx3 POD#7 s/p right BKA. Patient denies any acute events overnight. She denies any pain and any complaints. Patient denies n/f/v/d/c/sob. Dressing and knee immobilizer to right extremity remains clean,dry,intact. Objective - Vital Signs/Intake and Output Vital Signs (last 24 hours): Temp Pulse Resp BP Pulse Ox 99.2 F 114 H 18 91/61 L 95 10/08/16 00:41 10/08/16 00:41 10/08/16 00:41 10/08/16 00:41 10/08/16 00:41 - Medications Medications: Current Medications Acetaminophen (Tylenol 325mg Tab) 650 mg PO Q4 PRN PRN Reason: Fever >100.4 F Last Admin: 10/02/16 16:27 Dose: 650 mg Acetaminophen (Tylenol 325mg Tab) 650 mg PO Q4 PRN PRN Reason: Pain, moderate (4-7) Last Admin: 09/16/16 22:34 Dose: 650 mg Albuterol Sulfate (Albuterol 0.083% Inhal Barbie (2.5 Mg/3 Ml) Ud) 2.5 mg INH RQ4 PRN PRN Reason: Shortness of Breath Albuterol/Ipratropium (Duoneb 3 Mg/0.5 Mg (3 Ml) Ud) 3 ml INH RQ4 PRN PRN Reason: Shortness of Breath Apixaban (Eliquis) 5 mg PO BID [facility] PRN Reason: Protocol Apixaban (Eliquis) 5 mg PO BID [facility] PRN Reason: Protocol Stop: 10/09/16 06:00 Last Admin: 10/07/16 20:06 Dose: 5 mg Aspirin (Ecotrin) 81 mg PO DAILY [facility] Last Admin: 10/06/16 09:06 Dose: 81 mg Atorvastatin Calcium (Lipitor) 40 mg PO DAILY [facility] Last Admin: 10/07/16 09:07 Dose: 40 mg Benzonatate (Tessalon Perles) 200 mg PO TID PRN PRN Reason: Cough Last Admin: 10/02/16 14:07 Dose: 200 mg Cinacalcet (Sensipar) 30 mg PO DAILY [facility] Last Admin: 10/07/16 09:11 Dose: 30 mg Diphenhydramine HCl (Benadryl) 25 mg PO Q6 PRN PRN Reason: Itching / Pruritus Epoetin Tha (Procrit) 20,000 unit IV MWF [facility] Last Admin: 10/07/16 19:36 Dose: 20,000 unit Ergocalciferol (Drisdol 50,000 Intl Units Cap) 1 cap PO Q7D [facility] Stop: 11/06/16 11:16 Last Admin: 10/02/16 14:06 Dose: 1 cap Fluconazole (Diflucan) 100 mg PO DAILY [facility] Last Admin: 10/07/16 09:04 Dose: 100 mg Gabapentin (Neurontin) 300 mg PO TID [facility] Last Admin: 10/07/16 16:46 Dose: 300 mg Hydrocortisone (Anusol-Hc) 1 applic [place] BID [facility] Last Admin: 10/07/16 16:42 Dose: Not Given Hydromorphone HCl (Dilaudid) 1 mg IVP Q3H PRN PRN Reason: Pain, severe (8-10) Last Admin: 10/07/16 21:54 Dose: 1 mg Amikacin Sulfate 250 mg/ (Sodium Chloride) 101 mls @ 100.609 [facility]ls[facility] Last Admin: 10/07/16 09:01 Dose: 100.609 mls/hr Meropenem 500 mg/ Sodium (Chloride) 100 mls @ 100 mls/hr IVPB DAILY@0100 [facility] Last Admin: 10/08/16 00:54 Dose: 100 mls/hr Piperacillin Sod/Tazobactam (Sod 2.25 gm/ Sodium Chloride) 100 mls @ 100 mls/ hr IVPB Q12@0600,1800 [facility] Last Admin: 10/08/16 05:29 Dose: 100 mls/hr Sodium Chloride (Sodium Chloride 0.9%) 1,000 mls @ 10 mls/hr IV .Q24H [facility] Last Admin: 10/05/16 17:30 Dose: 10 mls/hr Linezolid (Zyvox 600mg/300ml D5w) 600 mg in 300 mls @ 300 mls/hr IVPB Q12@0800, 2000 [facility] Last Admin: 10/07/16 20:07 Dose: 300 mls/hr Insulin Detemir (Levemir) 34 units SC HS [facility] Last Admin: 10/07/16 22:21 Dose: 34 units Insulin Human Lispro (Humalog) 10 units SC AC [facility] Last Admin: 10/07/16 16:43 Dose: 10 unit Lidocaine (Lidoderm) 1 ea TD DAILY [facility] Last Admin: 10/07/16 09:07 Dose: 1 ea Medroxyprogesterone Acetate (Provera) 10 mg PO DAILY [facility] Last Admin: 10/07/16 09:10 Dose: 10 mg Nystatin (Mycostatin Oint) 1 applic TOP TID [facility] Last Admin: 10/07/16 16:45 Dose: 1 applic Ondansetron HCl (Zofran Inj) 4 mg IVP Q6 PRN PRN Reason: Nausea/Vomiting Last Admin: 09/19/16 10:26 Dose: 4 mg Pantoprazole Sodium (Protonix Ec Tab) 40 mg PO DAILY [facility] Last Admin: 10/07/16 09:09 Dose: 40 mg Sevelamer HCl (Renagel) 1,600 mg PO TID [facility] Last Admin: 10/07/16 16:48 Dose: 1,600 mg Topiramate (Topamax) 50 mg PO BID [facility] Last Admin: 10/07/16 16:49 Dose: 50 mg Vitamin B Complex/Vit C/Folic Acid (Nephro-Ajay) 1 tab PO DAILY [facility] Last Admin: 10/07/16 09:08 Dose: 1 tab - Labs Labs: 10/07/16 06:30 10/07/16 06:30 PT 12.0 SECONDS (9.6-11.2) H 10/07/16 06:30 INR 1.15 (0.92-1.08) H 10/07/16 06:30 APTT 32.3 SECONDS (23.3-32.5) 10/07/16 06:30 - Constitutional Appears: Well, Non-toxic, No Acute Distress - Extremities Exam Additional comments: b/l BKA, dressings Clean dry intact, knee immobilizer in place. - Neurological Exam Neurological Exam: Alert, Awake, Oriented x3 - Psychiatric Exam Psychiatric exam: Normal Affect, Normal Mood Assessment and Plan - Assessment and Plan (Free Text) Assessment: 46F s/p Right BKA POD#7 - Continue pain control prn - F/U H/H; 8.6/26.4 - Continue knee immobilizer to R stump - PT/OT - Blood thinners held for D&C as per OBGYN Further recs discuss with Dr. Mccormack
[2016-10-08] MEDS: HYDROmorphone 0.5 mg/0.5 ml ISec IVP PRN ×3 (08:24→22:01)
[2016-10-08] MEDS: Hydrocortisone 2.5% (Rectal) CREAM PR SCH ×2 (08:28→17:02)
[2016-10-08] MEDS: Insulin Lispro (humaLOG) 100 Units/ml Inj SC SCH ×3 (08:30→17:01)
[2016-10-08] MEDS: Lidocaine 5% Patch TD SCH (08:31)
[2016-10-08] MEDS: Multivitamin Vitamin B Complex (Nephro-Vite) Tab PO SCH (08:33)
[2016-10-08] MEDS: Nystatin Ointment TOP SCH ×3 (08:33→16:58)
[2016-10-08] MEDS: Pantoprazole 40 mg EC Tab PO SCH (08:34)
[2016-10-08] MEDS: Linezolid 600 mg in D5W 300 ml 600 MG/300 ML BAG IVPB SCH ×2 (08:36→20:11)
--- NOTE | 2016-10-08 09:01 | CP.PCM.PN ---
Subjective - Date & Time of Evaluation Date of Evaluation: 10/08/16 Time of Evaluation: 09:00 - Subjective Subjective: Notes by Dr. Maguire and Dr. Baldwin appreciated. This is day # 7 post right BK amputation. Patient is comfortable, says her IV Dilaudid holds her for about 6 hours. She continues on 4 iv antibiotics and po Diflucan based on previous cultures and based on documented osteomyelitis of the right foot. We expect these antibiotics to continue for another 4 weeks. She is receiving daily PT and OT. Good appetite. I am reluctant to cut back on her foods, but will ask Dr. Ambrose about changing carbohydrates as per dietitian recommendation. Vaginal bleeding is subsiding slightly, but this has been going on for 3 weeks. This raises concerns regarding the cause. So patient is on schedule for D & C and endometrial ablation by Dr. Larry on FriOctober 11. She is off aspirin for 4 days, and we will stop Eliquis after today. Anemia will be addressed tomorrow -as Dr. Andrew Shepard plans to transfuse at time of hemodialysis tomorrow - in preparation for Friday's procedure. As per Dr. Maguire's note, no further seizure activity. Objective - Vital Signs/Intake and Output Vital Signs (last 24 hours): Temp Pulse Resp BP Pulse Ox 98.5 F 120 H 20 112/78 98 10/08/16 08:14 10/08/16 08:14 10/08/16 08:14 10/08/16 08:14 10/08/16 08:14 - Medications Medications: Current Medications Acetaminophen (Tylenol 325mg Tab) 650 mg PO Q4 PRN PRN Reason: Fever >100.4 F Last Admin: 10/02/16 16:27 Dose: 650 mg Acetaminophen (Tylenol 325mg Tab) 650 mg PO Q4 PRN PRN Reason: Pain, moderate (4-7) Last Admin: 09/16/16 22:34 Dose: 650 mg Albuterol Sulfate (Albuterol 0.083% Inhal Barbie (2.5 Mg/3 Ml) Ud) 2.5 mg INH RQ4 PRN PRN Reason: Shortness of Breath Albuterol/Ipratropium (Duoneb 3 Mg/0.5 Mg (3 Ml) Ud) 3 ml INH RQ4 PRN PRN Reason: Shortness of Breath Apixaban (Eliquis) 5 mg PO BID [facility] PRN Reason: Protocol Apixaban (Eliquis) 5 mg PO BID [facility] PRN Reason: Protocol Stop: 10/09/16 06:00 Last Admin: 10/08/16 08:29 Dose: 5 mg Aspirin (Ecotrin) 81 mg PO DAILY [facility] Last Admin: 10/06/16 09:06 Dose: 81 mg Atorvastatin Calcium (Lipitor) 40 mg PO DAILY [facility] Last Admin: 10/08/16 08:32 Dose: 40 mg Benzonatate (Tessalon Perles) 200 mg PO TID PRN PRN Reason: Cough Last Admin: 10/02/16 14:07 Dose: 200 mg Cinacalcet (Sensipar) 30 mg PO DAILY [facility] Last Admin: 10/08/16 08:35 Dose: 30 mg Diphenhydramine HCl (Benadryl) 25 mg PO Q6 PRN PRN Reason: Itching / Pruritus Epoetin Tha (Procrit) 20,000 unit IV [facility] Last Admin: 10/07/16 19:36 Dose: 20,000 unit Ergocalciferol (Drisdol 50,000 Intl Units Cap) 1 cap PO Q7D [facility] Stop: 11/06/16 11:16 Last Admin: 10/02/16 14:06 Dose: 1 cap Fluconazole (Diflucan) 100 mg PO DAILY [facility] Last Admin: 10/08/16 08:28 Dose: 100 mg Gabapentin (Neurontin) 300 mg PO TID [facility] Last Admin: 10/08/16 08:34 Dose: 300 mg Hydrocortisone (Anusol-Hc) 1 applic [place] BID [facility] Last Admin: 10/08/16 08:28 Dose: Not Given Hydromorphone HCl (Dilaudid) 1 mg IVP Q3H PRN PRN Reason: Pain, severe (8-10) Last Admin: 10/08/16 08:24 Dose: 1 mg Amikacin Sulfate 250 mg/ (Sodium Chloride) 101 mls @ 100.609 mls/hr IVPB MWF [facility] Last Admin: 10/07/16 09:01 Dose: 100.609 mls/hr Meropenem 500 mg/ Sodium (Chloride) 100 mls @ 100 mls/hr IVPB DAILY@0100 [facility] Last Admin: 10/08/16 00:54 Dose: 100 mls/hr Piperacillin Sod/Tazobactam (Sod 2.25 gm/ Sodium Chloride) 100 mls @ 100 mls/ hr IVPB Q12@0600,1800 [facility] Last Admin: 10/08/16 05:29 Dose: 100 mls/hr Sodium Chloride (Sodium Chloride 0.9%) 1,000 mls @ 10 mls/hr IV .Q24H [facility] Last Admin: 10/05/16 17:30 Dose: 10 mls/hr Linezolid (Zyvox 600mg/300ml D5w) 600 mg in 300 mls @ 300 mls/hr IVPB Q12@0800, 2000 [facility] Last Admin: 10/08/16 08:36 Dose: 300 mls/hr Insulin Detemir (Levemir) 34 units SC HS [facility] Last Admin: 10/07/16 22:21 Dose: 34 units Insulin Human Lispro (Humalog) 10 units SC AC [facility] Last Admin: 10/08/16 08:30 Dose: 10 unit Lidocaine (Lidoderm) 1 ea TD DAILY [facility] Last Admin: 10/08/16 08:31 Dose: 1 ea Medroxyprogesterone Acetate (Provera) 10 mg PO DAILY [facility] Last Admin: 10/08/16 08:34 Dose: 10 mg Nystatin (Mycostatin Oint) 1 applic TOP TID [facility] Last Admin: 10/08/16 08:33 Dose: 1 applic Ondansetron HCl (Zofran Inj) 4 mg IVP Q6 PRN PRN Reason: Nausea/Vomiting Last Admin: 09/19/16 10:26 Dose: 4 mg Pantoprazole Sodium (Protonix Ec Tab) 40 mg PO DAILY [facility] Last Admin: 10/08/16 08:34 Dose: 40 mg Sevelamer HCl (Renagel) 1,600 mg PO TID [facility] Last Admin: 10/08/16 08:34 Dose: 1,600 mg Topiramate (Topamax) 50 mg PO BID [facility] Last Admin: 10/08/16 08:35 Dose: 50 mg Vitamin B Complex/Vit C/Folic Acid (Nephro-Ajay) 1 tab PO DAILY [facility] Last Admin: 10/08/16 08:33 Dose: 1 tab - Labs Labs: 10/07/16 06:30 10/07/16 06:30 PT 12.0 SECONDS (9.6-11.2) H 10/07/16 06:30 INR 1.15 (0.92-1.08) H 10/07/16 06:30 APTT 32.3 SECONDS (23.3-32.5) 10/07/16 06:30 - Constitutional Appears: No Acute Distress - Head Exam Head Exam: NORMAL INSPECTION - Eye Exam Eye Exam: Normal appearance - ENT Exam ENT Exam: Mucous Membranes Moist - Neck Exam Neck Exam: Normal Inspection Additional comments: R subclavian Permacath intact. - Respiratory Exam Respiratory Exam: Clear to Ausculation Bilateral, NORMAL BREATHING PATTERN - Cardiovascular Exam Cardiovascular Exam: REGULAR RHYTHM, +S1, +S2 - GI/Abdominal Exam GI & Abdominal Exam: Soft - Extremities Exam Additional comments: Dressing dry and intact R residual limb. All other extremities as before. - Back Exam Back Exam: NORMAL INSPECTION - Neurological Exam Neurological Exam: Alert, Awake, CN II-XII Intact, Oriented x3 - Psychiatric Exam Psychiatric exam: Normal Affect, Normal Mood - Skin Skin Exam: Dry, Normal Color, Warm Additional comments: Buttock decubitus redressed this morning. Assessment and Plan (1) Status post below knee amputation of right lower extremity Assessment & Plan: Doing very well. To continue antibiotics and both occupational and physical therapy Status: Acute (2) Osteomyelitis of ankle or foot Assessment & Plan: We cannot consider this totally resolved until the BK amputation site is fully healed. Our experience with this patient who has had previous episodes of osteomyelitis involving the upper extremities is that prolonged iv antibiotic therapy is needed to erase every trace of infection -- especially with indwelling venous catheters. Status: Acute (3) ESRD (end stage renal disease) on dialysis Status: Chronic (4) DM type 2 (diabetes mellitus, type 2) Status: Chronic (5) Coagulopathy Status: Chronic (6) Anemia, blood loss Status: Acute (7) Peripheral arterial occlusive disease Status: Chronic
--- NOTE | 2016-10-08 10:43 | CP.PCM.PN ---
Subjective - Date & Time of Evaluation Date of Evaluation: 10/08/16 Time of Evaluation: 10:41 - Subjective Subjective: No significant changes noted overnight Patient appears to be stable tolerated hemodialysis well yesterday In summary status post right below knee amputation patient receiving multiple antibiotics as noted with continuation of hemodialysis Friday and intermittent blood transfusion perhaps tomorrow. Medication has been reviewed and continue the same and for dialysis tomorrow Objective - Vital Signs/Intake and Output Vital Signs (last 24 hours): Temp Pulse Resp BP Pulse Ox 98.5 F 120 H 20 112/78 98 10/08/16 08:14 10/08/16 08:14 10/08/16 08:14 10/08/16 08:14 10/08/16 08:14 - Medications Medications: Current Medications Acetaminophen (Tylenol 325mg Tab) 650 mg PO Q4 PRN PRN Reason: Fever >100.4 F Last Admin: 10/02/16 16:27 Dose: 650 mg Acetaminophen (Tylenol 325mg Tab) 650 mg PO Q4 PRN PRN Reason: Pain, moderate (4-7) Last Admin: 09/16/16 22:34 Dose: 650 mg Albuterol Sulfate (Albuterol 0.083% Inhal Barbie (2.5 Mg/3 Ml) Ud) 2.5 mg INH RQ4 PRN PRN Reason: Shortness of Breath Albuterol/Ipratropium (Duoneb 3 Mg/0.5 Mg (3 Ml) Ud) 3 ml INH RQ4 PRN PRN Reason: Shortness of Breath Apixaban (Eliquis) 5 mg PO BID [facility] PRN Reason: Protocol Apixaban (Eliquis) 5 mg PO BID [facility] PRN Reason: Protocol Stop: 10/09/16 06:00 Last Admin: 10/08/16 08:29 Dose: 5 mg Aspirin (Ecotrin) 81 mg PO DAILY [facility] Last Admin: 10/06/16 09:06 Dose: 81 mg Atorvastatin Calcium (Lipitor) 40 mg PO DAILY [facility] Last Admin: 10/08/16 08:32 Dose: 40 mg Benzonatate (Tessalon Perles) 200 mg PO TID PRN PRN Reason: Cough Last Admin: 10/02/16 14:07 Dose: 200 mg Cinacalcet (Sensipar) 30 mg PO DAILY [facility] Last Admin: 10/08/16 08:35 Dose: 30 mg Diphenhydramine HCl (Benadryl) 25 mg PO Q6 PRN PRN Reason: Itching / Pruritus Epoetin Tha (Procrit) 20,[address] [facility] [place] Last Admin: 10/07/16 19:36 Dose: 20,000 unit Ergocalciferol (Drisdol 50,000 Intl Units Cap) 1 cap PO Q7D [facility] Stop: 11/06/16 11:16 Last Admin: 10/02/16 14:06 Dose: 1 cap Fluconazole (Diflucan) 100 mg PO DAILY [facility] Last Admin: 10/08/16 08:28 Dose: 100 mg Gabapentin (Neurontin) 300 mg PO TID [facility] Last Admin: 10/08/16 08:34 Dose: 300 mg Hydrocortisone (Anusol-Hc) 1 applic [place] BID [facility] Last Admin: 10/08/16 08:28 Dose: Not Given Hydromorphone HCl (Dilaudid) 1 mg IVP Q3H PRN PRN Reason: Pain, severe (8-10) Last Admin: 10/08/16 08:24 Dose: 1 mg Amikacin Sulfate 250 mg/ (Sodium Chloride) 101 mls @ 100.609 mls/[facility] Last Admin: 10/07/16 09:01 Dose: 100.609 mls/hr Meropenem 500 mg/ Sodium (Chloride) 100 mls @ 100 mls/hr IVPB DAILY@0100 [facility] Last Admin: 10/08/16 00:54 Dose: 100 mls/hr Piperacillin Sod/Tazobactam (Sod 2.25 gm/ Sodium Chloride) 100 mls @ 100 mls/ hr IVPB Q12@0600,1800 [facility] Last Admin: 10/08/16 05:29 Dose: 100 mls/hr Sodium Chloride (Sodium Chloride 0.9%) 1,000 mls @ 10 mls/hr IV .Q24H [facility] Last Admin: 10/05/16 17:30 Dose: 10 mls/hr Linezolid (Zyvox 600mg/300ml D5w) 600 mg in 300 mls @ 300 mls/hr IVPB Q12@0800, 2000 [facility] Last Admin: 10/08/16 08:36 Dose: 300 mls/hr Insulin Detemir (Levemir) 34 units SC HS [facility] Last Admin: 10/07/16 22:21 Dose: 34 units Insulin Human Lispro (Humalog) 10 units SC AC [facility] Last Admin: 10/08/16 08:30 Dose: 10 unit Lidocaine (Lidoderm) 1 ea TD DAILY [facility] Last Admin: 10/08/16 08:31 Dose: 1 ea Medroxyprogesterone Acetate (Provera) 10 mg PO DAILY [facility] Last Admin: 10/08/16 08:34 Dose: 10 mg Nystatin (Mycostatin Oint) 1 applic TOP TID [facility] Last Admin: 10/08/16 08:33 Dose: 1 applic Ondansetron HCl (Zofran Inj) 4 mg IVP Q6 PRN PRN Reason: Nausea/Vomiting Last Admin: 09/19/16 10:26 Dose: 4 mg Pantoprazole Sodium (Protonix Ec Tab) 40 mg PO DAILY [facility] Last Admin: 10/08/16 08:34 Dose: 40 mg Sevelamer HCl (Renagel) 1,600 mg PO TID [facility] Last Admin: 10/08/16 08:34 Dose: 1,600 mg Topiramate (Topamax) 50 mg PO BID [facility] Last Admin: 10/08/16 08:35 Dose: 50 mg Vitamin B Complex/Vit C/Folic Acid (Nephro-Ajay) 1 tab PO DAILY [facility] Last Admin: 10/08/16 08:33 Dose: 1 tab - Labs Labs: 10/07/16 06:30 10/07/16 06:30 PT 12.0 SECONDS (9.6-11.2) H 10/07/16 06:30 INR 1.15 (0.92-1.08) H 10/07/16 06:30 APTT 32.3 SECONDS (23.3-32.5) 10/07/16 06:30 Assessment and Plan (1) ESRD (end stage renal disease) Status: Chronic (2) Cellulitis of leg Status: Acute
--- NOTE | 2016-10-08 10:59 | CP.PCM.PN ---
Subjective - Date & Time of Evaluation Date of Evaluation: 10/08/16 Time of Evaluation: 10:59 - Subjective Subjective: Pt is afebrile and stable. She is to have the D7C on friday. Will transfuse her tomorrow with the dialysis and stop the eliquis today. Objective - Vital Signs/Intake and Output Vital Signs (last 24 hours): Temp Pulse Resp BP Pulse Ox 98.5 F 120 H 20 112/78 98 10/08/16 08:14 10/08/16 08:14 10/08/16 08:14 10/08/16 08:14 10/08/16 08:14 - Medications Medications: Current Medications Acetaminophen (Tylenol 325mg Tab) 650 mg PO Q4 PRN PRN Reason: Fever >100.4 F Last Admin: 10/02/16 16:27 Dose: 650 mg Acetaminophen (Tylenol 325mg Tab) 650 mg PO Q4 PRN PRN Reason: Pain, moderate (4-7) Last Admin: 09/16/16 22:34 Dose: 650 mg Albuterol Sulfate (Albuterol 0.083% Inhal Barbie (2.5 Mg/3 Ml) Ud) 2.5 mg INH RQ4 PRN PRN Reason: Shortness of Breath Albuterol/Ipratropium (Duoneb 3 Mg/0.5 Mg (3 Ml) Ud) 3 ml INH RQ4 PRN PRN Reason: Shortness of Breath Apixaban (Eliquis) 5 mg PO BID [facility] PRN Reason: Protocol Apixaban (Eliquis) 5 mg PO BID [facility] PRN Reason: Protocol Stop: 10/09/16 06:00 Last Admin: 10/08/16 08:29 Dose: 5 mg Aspirin (Ecotrin) 81 mg PO DAILY [facility] Last Admin: 10/06/16 09:06 Dose: 81 mg Atorvastatin Calcium (Lipitor) 40 mg PO DAILY [facility] Last Admin: 10/08/16 08:32 Dose: 40 mg Benzonatate (Tessalon Perles) 200 mg PO TID PRN PRN Reason: Cough Last Admin: 10/02/16 14:07 Dose: 200 mg Cinacalcet (Sensipar) 30 mg PO DAILY [facility] Last Admin: 10/08/16 08:35 Dose: 30 mg Diphenhydramine HCl (Benadryl) 25 mg PO Q6 PRN PRN Reason: Itching / Pruritus Epoetin Tha (Procrit) 20,000 unit IV F [facility] Last Admin: 10/07/16 19:36 Dose: 20,000 unit Ergocalciferol (Drisdol 50,000 Intl Units Cap) 1 cap PO Q7D [facility] Stop: 11/06/16 11:16 Last Admin: 10/02/16 14:06 Dose: 1 cap Fluconazole (Diflucan) 100 mg PO DAILY [facility] Last Admin: 10/08/16 08:28 Dose: 100 mg Gabapentin (Neurontin) 300 mg PO TID [facility] Last Admin: 10/08/16 08:34 Dose: 300 mg Hydrocortisone (Anusol-Hc) 1 applic [place] BID [facility] Last Admin: 10/08/16 08:28 Dose: Not Given Hydromorphone HCl (Dilaudid) 1 mg IVP Q3H PRN PRN Reason: Pain, severe (8-10) Last Admin: 10/08/16 08:24 Dose: 1 mg Amikacin Sulfate 250 mg/ (Sodium Chloride) 101 mls @ 100.609 mls/hr IVPB [facility] Last Admin: 10/07/16 09:01 Dose: 100.609 mls/hr Meropenem 500 mg/ Sodium (Chloride) 100 mls @ 100 mls/hr IVPB DAILY@0100 [facility] Last Admin: 10/08/16 00:54 Dose: 100 mls/hr Piperacillin Sod/Tazobactam (Sod 2.25 gm/ Sodium Chloride) 100 mls @ 100 mls/ hr IVPB Q12@0600,1800 [facility] Last Admin: 10/08/16 05:29 Dose: 100 mls/hr Sodium Chloride (Sodium Chloride 0.9%) 1,000 mls @ 10 mls/hr IV .Q24H [facility] Last Admin: 10/05/16 17:30 Dose: 10 mls/hr Linezolid (Zyvox 600mg/300ml D5w) 600 mg in 300 mls @ 300 mls/hr IVPB Q12@0800, 2000 [facility] Last Admin: 10/08/16 08:36 Dose: 300 mls/hr Insulin Detemir (Levemir) 34 units SC HS [facility] Last Admin: 10/07/16 22:21 Dose: 34 units Insulin Human Lispro (Humalog) 10 units SC AC [facility] Last Admin: 10/08/16 08:30 Dose: 10 unit Lidocaine (Lidoderm) 1 ea TD DAILY [facility] Last Admin: 10/08/16 08:31 Dose: 1 ea Medroxyprogesterone Acetate (Provera) 10 mg PO DAILY [facility] Last Admin: 10/08/16 08:34 Dose: 10 mg Nystatin (Mycostatin Oint) 1 applic TOP TID [facility] Last Admin: 10/08/16 08:33 Dose: 1 applic Ondansetron HCl (Zofran Inj) 4 mg IVP Q6 PRN PRN Reason: Nausea/Vomiting Last Admin: 09/19/16 10:26 Dose: 4 mg Pantoprazole Sodium (Protonix Ec Tab) 40 mg PO DAILY [facility] Last Admin: 10/08/16 08:34 Dose: 40 mg Sevelamer HCl (Renagel) 1,600 mg PO TID [facility] Last Admin: 10/08/16 08:34 Dose: 1,600 mg Topiramate (Topamax) 50 mg PO BID [facility] Last Admin: 10/08/16 08:35 Dose: 50 mg Vitamin B Complex/Vit C/Folic Acid (Nephro-Ajay) 1 tab PO DAILY [facility] Last Admin: 10/08/16 08:33 Dose: 1 tab - Labs Labs: 10/07/16 06:30 10/07/16 06:30 PT 12.0 SECONDS (9.6-11.2) H 10/07/16 06:30 INR 1.15 (0.92-1.08) H 10/07/16 06:30 APTT 32.3 SECONDS (23.3-32.5) 10/07/16 06:30
--- NOTE | 2016-10-08 14:40 | CP.PCM.PN ---
Subjective - Date & Time of Evaluation Date of Evaluation: 10/08/16 Time of Evaluation: 14:26 - Subjective Subjective: Patient has no acute complaints this afternoon. She denies increasing pain in her right BKA stump. Objective - Vital Signs/Intake and Output Vital Signs (last 24 hours): Temp Pulse Resp BP Pulse Ox 98.5 F 120 H 20 112/78 98 10/08/16 08:14 10/08/16 08:14 10/08/16 08:14 10/08/16 08:14 10/08/16 08:14 - Medications Medications: Current Medications Acetaminophen (Tylenol 325mg Tab) 650 mg PO Q4 PRN PRN Reason: Fever >100.4 F Last Admin: 10/02/16 16:27 Dose: 650 mg Acetaminophen (Tylenol 325mg Tab) 650 mg PO Q4 PRN PRN Reason: Pain, moderate (4-7) Last Admin: 09/16/16 22:34 Dose: 650 mg Albuterol Sulfate (Albuterol 0.083% Inhal Barbie (2.5 Mg/3 Ml) Ud) 2.5 mg INH RQ4 PRN PRN Reason: Shortness of Breath Albuterol/Ipratropium (Duoneb 3 Mg/0.5 Mg (3 Ml) Ud) 3 ml INH RQ4 PRN PRN Reason: Shortness of Breath Apixaban (Eliquis) 5 mg PO BID JASPER PRN Reason: Protocol Apixaban (Eliquis) 5 mg PO BID JASPER PRN Reason: Protocol Stop: 10/09/16 06:00 Last Admin: 10/08/16 08:29 Dose: 5 mg Aspirin (Ecotrin) 81 mg PO DAILY [facility] Last Admin: 10/06/16 09:06 Dose: 81 mg Atorvastatin Calcium (Lipitor) 40 mg PO DAILY [facility] Last Admin: 10/08/16 08:32 Dose: 40 mg Benzonatate (Tessalon Perles) 200 mg PO TID PRN PRN Reason: Cough Last Admin: 10/02/16 14:07 Dose: 200 mg Cinacalcet (Sensipar) 30 mg PO DAILY [facility] Last Admin: 10/08/16 08:35 Dose: 30 mg Diphenhydramine HCl (Benadryl) 25 mg PO Q6 PRN PRN Reason: Itching / Pruritus Epoetin Tha (Procrit) 20,000 unit IV [facility] [place] Last Admin: 10/07/16 19:36 Dose: 20,000 unit Ergocalciferol (Drisdol 50,000 Intl Units Cap) 1 cap PO Q7D [facility] Stop: 11/06/16 11:16 Last Admin: 10/02/16 14:06 Dose: 1 cap Fluconazole (Diflucan) 100 mg PO DAILY [facility] Last Admin: 10/08/16 08:28 Dose: 100 mg Gabapentin (Neurontin) 300 mg PO TID [facility] Last Admin: 10/08/16 12:31 Dose: 300 mg Hydrocortisone (Anusol-Hc) 1 applic [place] BID [facility] Last Admin: 10/08/16 08:28 Dose: Not Given Hydromorphone HCl (Dilaudid) 1 mg IVP Q3H PRN PRN Reason: Pain, severe (8-10) Last Admin: 10/08/16 08:24 Dose: 1 mg Amikacin Sulfate 250 mg/ (Sodium Chloride) 101 mls @ 100.609 mls/hr IVPB [facility] [place] Last Admin: 10/07/16 09:01 Dose: 100.609 mls/hr Meropenem 500 mg/ Sodium (Chloride) 100 mls @ 100 mls/hr IVPB DAILY@0100 [facility] Last Admin: 10/08/16 00:54 Dose: 100 mls/hr Piperacillin Sod/Tazobactam (Sod 2.25 gm/ Sodium Chloride) 100 mls @ 100 mls/ hr IVPB Q12@0600,1800 [facility] Last Admin: 10/08/16 05:29 Dose: 100 mls/hr Sodium Chloride (Sodium Chloride 0.9%) 1,000 mls @ 10 mls/hr IV .Q24H [facility] Last Admin: 10/05/16 17:30 Dose: 10 mls/hr Linezolid (Zyvox 600mg/300ml D5w) 600 mg in 300 mls @ 300 mls/hr IVPB Q12@0800, 2000 [facility] Last Admin: 10/08/16 08:36 Dose: 300 mls/hr Insulin Detemir (Levemir) 34 units SC [facility] Last Admin: 10/07/16 22:21 Dose: 34 units Insulin Human Lispro (Humalog) 10 units SC AC [facility] Last Admin: 10/08/16 12:30 Dose: 10 unit Lidocaine (Lidoderm) 1 ea TD DAILY [facility] Last Admin: 10/08/16 08:31 Dose: 1 ea Medroxyprogesterone Acetate (Provera) 10 mg PO DAILY [facility] Last Admin: 10/08/16 08:34 Dose: 10 mg Nystatin (Mycostatin Oint) 1 applic TOP TID [facility] Last Admin: 10/08/16 12:29 Dose: 1 applic Ondansetron HCl (Zofran Inj) 4 mg IVP Q6 PRN PRN Reason: Nausea/Vomiting Last Admin: 09/19/16 10:26 Dose: 4 mg Pantoprazole Sodium (Protonix Ec Tab) 40 mg PO DAILY [facility] Last Admin: 10/08/16 08:34 Dose: 40 mg Sevelamer HCl (Renagel) 1,600 mg PO TID [facility] Last Admin: 10/08/16 12:31 Dose: 1,600 mg Topiramate (Topamax) 50 mg PO BID [facility] Last Admin: 10/08/16 08:35 Dose: 50 mg Vitamin B Complex/Vit C/Folic Acid (Nephro-Ajay) 1 tab PO DAILY [facility] Last Admin: 10/08/16 08:33 Dose: 1 tab - Labs Labs: 10/07/16 06:30 10/07/16 06:30 PT 12.0 SECONDS (9.6-11.2) H 10/07/16 06:30 INR 1.15 (0.92-1.08) H 10/07/16 06:30 APTT 32.3 SECONDS (23.3-32.5) 10/07/16 06:30 - Additional Findings Additional findings: Patient is resting comfortably in bed. She is no acute distress and does not appear ill. She is fully alert and appropriate. Her review of systems is overall benign. She had a febrile episode earlier today but is not febrile at present. Vital signs are stable at their baseline. Right BKA stump still has scant drainage which is sero-sanguineous and not frankly purulent at present. The sump shows no erythema, cellulitis or tenderness. Staple line is intact with no krystal wound dehiscence. Assessment and Plan - Assessment and Plan (Free Text) Assessment: Patient is status post right below the knee amputation 7 days ago. Overall, she has been recovering fairly uneventfully.\ Right BKA stump appears to be healing, but persistent discharge, although scant and not frankly purulent-looking at present, is concerning. Patient had a febrile episode within last 24 hours. Plan: Conitune current treatment and medical management. Daily examinations of the right BKA stump for signs of surgical wound infection since patient is a high risk for infection. Continue daily dressing changes to the right stump.
--- NOTE | 2016-10-08 14:49 | PN ---
DATE: 10/08/2016 ROOM: 663. SUBJECTIVE: This is a 46-year-old female with recent uncontrolled type 2 insulin-requiring diabetes who underwent a right below-knee amputation and is improving both clinically and metabolically postop eratively as noted. Her latest chemistries showed a BUN of 34, sodium 136, potassium 4.3, chloride 9 8, CO2 of 23, glucose 110 and creatinine 7.3. So, at this time, we will continue the same basal and bolus insulin regimen to allow for dose equilibration, especially postoperatively and we will keep he r on the Levemir given as 34 units subQ at bedtime daily as given. We will continue her Humalog give n as 10 units subQ t.i.d. before meals as ordered. We will titrate incrementally as indicated to opt imize metabolic control. We will follow. Irene Ambrose MD cc: [phone] TT: 10/08/2016 14:48:31 Confirmation # [id number] Dictation # [id number] ravinder
[2016-10-08] MEDS: Sodium Chloride 0.9% 1,000 ML IV SCH (17:05)
[2016-10-08] MEDS: Insulin Detemir 100 Units/ml Inj SC SCH (21:53)
--- NOTE | 2016-10-08 23:09 | CP.PCM.PN ---
Subjective - Date & Time of Evaluation Date of Evaluation: 10/08/16 Time of Evaluation: 19:50 - Subjective Subjective: No significant complaints, not campaigning of pain. She is receiving 4 IV Antibiotcs and Po Diflucan. VS are stable. No seizures are reported. She is receiving Topamax 50 mg BID, which is helping curbing her weight gain due to her increased appetite after recovering from her Right Procedure of BK Amputation. she is receiving H.D for her ESRD and Blood transfusions from time to time due to anemia. Objective - Vital Signs/Intake and Output Vital Signs (last 24 hours): Temp Pulse Resp BP Pulse Ox 98.2 F 102 H 18 114/51 L 90 L 10/08/16 15:52 10/08/16 15:52 10/08/16 15:52 10/08/16 15:52 10/08/16 15:52 - Medications Medications: Current Medications Acetaminophen (Tylenol 325mg Tab) 650 mg PO Q4 PRN PRN Reason: Fever >100.4 F Last Admin: 10/02/16 16:27 Dose: 650 mg Acetaminophen (Tylenol 325mg Tab) 650 mg PO Q4 PRN PRN Reason: Pain, moderate (4-7) Last Admin: 09/16/16 22:34 Dose: 650 mg Albuterol Sulfate (Albuterol 0.083% Inhal Barbie (2.5 Mg/3 Ml) Ud) 2.5 mg INH RQ4 PRN PRN Reason: Shortness of Breath Albuterol/Ipratropium (Duoneb 3 Mg/0.5 Mg (3 Ml) Ud) 3 ml INH RQ4 PRN PRN Reason: Shortness of Breath Apixaban (Eliquis) 5 mg PO BID JASPER PRN Reason: Protocol Apixaban (Eliquis) 5 mg PO BID JASPER PRN Reason: Protocol Stop: 10/09/16 06:00 Last Admin: 10/08/16 17:01 Dose: 5 mg Aspirin (Ecotrin) 81 mg PO DAILY [facility] Last Admin: 10/06/16 09:06 Dose: 81 mg Atorvastatin Calcium (Lipitor) 40 mg PO DAILY [facility] Last Admin: 10/08/16 08:32 Dose: 40 mg Benzonatate (Tessalon Perles) 200 mg PO TID PRN PRN Reason: Cough Last Admin: 10/02/16 14:07 Dose: 200 mg Cinacalcet (Sensipar) 30 mg PO DAILY [facility] Last Admin: 10/08/16 08:35 Dose: 30 mg Diphenhydramine HCl (Benadryl) 25 mg PO Q6 PRN PRN Reason: Itching / Pruritus Epoetin Tha (Procrit) 20,000 unit IV MWF [facility] Last Admin: 10/07/16 19:36 Dose: 20,000 unit Ergocalciferol (Drisdol 50,000 Intl Units Cap) 1 cap PO Q7D [facility] Stop: 11/06/16 11:16 Last Admin: 10/02/16 14:06 Dose: 1 cap Fluconazole (Diflucan) 100 mg PO DAILY [facility] Last Admin: 10/08/16 08:28 Dose: 100 mg Gabapentin (Neurontin) 300 mg PO TID [facility] Last Admin: 10/08/16 17:02 Dose: 300 mg Hydrocortisone (Anusol-Hc) 1 applic [place] BID [facility] Last Admin: 10/08/16 17:02 Dose: Not Given Hydromorphone HCl (Dilaudid) 1 mg IVP Q3H PRN PRN Reason: Pain, severe (8-10) Last Admin: 10/08/16 22:01 Dose: 1 mg Amikacin Sulfate 250 mg/ (Sodium Chloride) 101 mls @ 100.609 mls/hr [facility] Last Admin: 10/07/16 09:01 Dose: 100.609 mls/hr Meropenem 500 mg/ Sodium (Chloride) 100 mls @ 100 mls/hr IVPB DAILY@0100 [facility] Last Admin: 10/08/16 00:54 Dose: 100 mls/hr Piperacillin Sod/Tazobactam (Sod 2.25 gm/ Sodium Chloride) 100 mls @ 100 mls/ hr IVPB Q12@0600,1800 [facility] Last Admin: 10/08/16 17:03 Dose: 100 mls/hr Sodium Chloride (Sodium Chloride 0.9%) 1,000 mls @ 10 mls/hr IV .Q24H [facility] Last Admin: 10/08/16 17:05 Dose: 10 mls/hr Linezolid (Zyvox 600mg/300ml D5w) 600 mg in 300 mls @ 300 mls/hr IVPB Q12@0800, 2000 [facility] Last Admin: 10/08/16 20:11 Dose: 300 mls/hr Insulin Detemir (Levemir) 34 units SC HS [facility] Last Admin: 10/08/16 21:53 Dose: 34 units Insulin Human Lispro (Humalog) 10 units SC AC [facility] Last Admin: 10/08/16 17:01 Dose: 10 unit Lidocaine (Lidoderm) 1 ea TD DAILY [facility] Last Admin: 10/08/16 08:31 Dose: 1 ea Medroxyprogesterone Acetate (Provera) 10 mg PO DAILY [facility] Last Admin: 10/08/16 08:34 Dose: 10 mg Nystatin (Mycostatin Oint) 1 applic TOP TID [facility] Last Admin: 10/08/16 16:58 Dose: 1 applic Ondansetron HCl (Zofran Inj) 4 mg IVP Q6 PRN PRN Reason: Nausea/Vomiting Last Admin: 09/19/16 10:26 Dose: 4 mg Pantoprazole Sodium (Protonix Ec Tab) 40 mg PO DAILY [facility] Last Admin: 10/08/16 08:34 Dose: 40 mg Sevelamer HCl (Renagel) 1,600 mg PO TID [facility] Last Admin: 10/08/16 16:59 Dose: 1,600 mg Topiramate (Topamax) 50 mg PO BID [facility] Last Admin: 10/08/16 17:02 Dose: 50 mg Vitamin B Complex/Vit C/Folic Acid (Nephro-Ajay) 1 tab PO DAILY [facility] Last Admin: 10/08/16 08:33 Dose: 1 tab - Labs Labs: 10/07/16 06:30 10/07/16 06:30 PT 12.0 SECONDS (9.6-11.2) H 10/07/16 06:30 INR 1.15 (0.92-1.08) H 10/07/16 06:30 APTT 32.3 SECONDS (23.3-32.5) 10/07/16 06:30 Assessment and Plan (1) Diabetes Status: Chronic (2) ESRD (end stage renal disease) Status: Chronic (3) Cellulitis of leg Status: Acute (4) Hyperlipidemia Status: Chronic (5) Back pain Status: Acute (6) Bacteremia due to Gram-negative bacteria Status: Acute (7) Diabetes mellitus type 2 with peripheral artery disease Status: Acute (8) PVD (peripheral vascular disease) Status: Acute (9) Osteomyelitis of right foot Status: Acute (10) Fungal infection right foot Status: Acute
[2016-10-09] MEDS: Meropenem 500 MG in Sodium Chloride 0.9% 100 ML IVPB SCH (00:56)
--- NOTE | 2016-10-09 07:48 | CP.PCM.PN ---
Subjective - Date & Time of Evaluation Date of Evaluation: 10/09/16 Time of Evaluation: 07:47 - Subjective Subjective: This is a vascular surgery progress note for Dr. Mccormack: 46 y/o female seen at bedside this morning resting comfortably in NAD and AAOx3 POD#7 s/p right BKA. Patient denies any acute events overnight. She denies any pain and any complaints. Patient denies n/f/v/d/c/sob. Dressing and knee immobilizer to right extremity remains clean,dry,intact. Objective - Vital Signs/Intake and Output Vital Signs (last 24 hours): Temp Pulse Resp BP Pulse Ox 98.8 F 73 19 100/60 97 10/09/16 01:00 10/09/16 01:00 10/09/16 01:00 10/09/16 01:00 10/09/16 01:00 - Medications Medications: Current Medications Acetaminophen (Tylenol 325mg Tab) 650 mg PO Q4 PRN PRN Reason: Fever >100.4 F Last Admin: 10/02/16 16:27 Dose: 650 mg Acetaminophen (Tylenol 325mg Tab) 650 mg PO Q4 PRN PRN Reason: Pain, moderate (4-7) Last Admin: 09/16/16 22:34 Dose: 650 mg Albuterol Sulfate (Albuterol 0.083% Inhal Barbie (2.5 Mg/3 Ml) Ud) 2.5 mg INH RQ4 PRN PRN Reason: Shortness of Breath Albuterol/Ipratropium (Duoneb 3 Mg/0.5 Mg (3 Ml) Ud) 3 ml INH RQ4 PRN PRN Reason: Shortness of Breath Apixaban (Eliquis) 5 mg PO BID JASPER PRN Reason: Protocol Aspirin (Ecotrin) 81 mg PO DAILY [facility] Last Admin: 10/06/16 09:06 Dose: 81 mg Atorvastatin Calcium (Lipitor) 40 mg PO DAILY [facility] Last Admin: 10/08/16 08:32 Dose: 40 mg Benzonatate (Tessalon Perles) 200 mg PO TID PRN PRN Reason: Cough Last Admin: 10/02/16 14:07 Dose: 200 mg Cinacalcet (Sensipar) 30 mg PO DAILY [facility] Last Admin: 10/08/16 08:35 Dose: 30 mg Diphenhydramine HCl (Benadryl) 25 mg PO Q6 PRN PRN Reason: Itching / Pruritus Epoetin Tha (Procrit) 20,000 unit IV MWF [facility] Last Admin: 10/07/16 19:36 Dose: 20,000 unit Ergocalciferol (Drisdol 50,000 Intl Units Cap) 1 cap PO Q7D [facility] Stop: 11/06/16 11:16 Last Admin: 10/02/16 14:06 Dose: 1 cap Fluconazole (Diflucan) 100 mg PO DAILY [facility] Last Admin: 10/08/16 08:28 Dose: 100 mg Gabapentin (Neurontin) 300 mg PO TID [facility] Last Admin: 10/08/16 17:02 Dose: 300 mg Hydrocortisone (Anusol-Hc) 1 applic [place] BID [facility] Last Admin: 10/08/16 17:02 Dose: Not Given Hydromorphone HCl (Dilaudid) 1 mg IVP Q3H PRN PRN Reason: Pain, severe (8-10) Last Admin: 10/08/16 22:01 Dose: 1 mg Amikacin Sulfate 250 mg/ (Sodium Chloride) 101 mls @ 100.609 mls/hr IVPB [facility] [place] [facility] Last Admin: 10/07/16 09:01 Dose: 100.609 mls/hr Meropenem 500 mg/ Sodium (Chloride) 100 mls @ 100 mls/hr IVPB DAILY@0100 [facility] Last Admin: 10/09/16 00:56 Dose: 100 mls/hr Piperacillin Sod/Tazobactam (Sod 2.25 gm/ Sodium Chloride) 100 mls @ 100 mls/ hr IVPB Q12@0600,1800 [facility] Last Admin: 10/09/16 06:09 Dose: 100 mls/hr Sodium Chloride (Sodium Chloride 0.9%) 1,000 mls @ 10 mls/hr IV .Q24H [facility] Last Admin: 10/08/16 17:05 Dose: 10 mls/hr Linezolid (Zyvox 600mg/300ml D5w) 600 mg in 300 mls @ 300 mls/hr IVPB Q12@0800, 2000 [facility] Last Admin: 10/08/16 20:11 Dose: 300 mls/hr Insulin Detemir (Levemir) 34 units SC HS [facility] Last Admin: 10/08/16 21:53 Dose: 34 units Insulin Human Lispro (Humalog) 10 units SC AC [facility] Last Admin: 10/08/16 17:01 Dose: 10 unit Lidocaine (Lidoderm) 1 ea TD DAILY [facility] Last Admin: 10/08/16 08:31 Dose: 1 ea Medroxyprogesterone Acetate (Provera) 10 mg PO DAILY [facility] Last Admin: 10/08/16 08:34 Dose: 10 mg Nystatin (Mycostatin Oint) 1 applic TOP TID [facility] Last Admin: 10/08/16 16:58 Dose: 1 applic Ondansetron HCl (Zofran Inj) 4 mg IVP Q6 PRN PRN Reason: Nausea/Vomiting Last Admin: 09/19/16 10:26 Dose: 4 mg Pantoprazole Sodium (Protonix Ec Tab) 40 mg PO DAILY [facility] Last Admin: 10/08/16 08:34 Dose: 40 mg Sevelamer HCl (Renagel) 1,600 mg PO TID [facility] Last Admin: 10/08/16 16:59 Dose: 1,600 mg Topiramate (Topamax) 50 mg PO BID [facility] Last Admin: 10/08/16 17:02 Dose: 50 mg Vitamin B Complex/Vit C/Folic Acid (Nephro-Ajay) 1 tab PO DAILY [facility] Last Admin: 10/08/16 08:33 Dose: 1 tab - Labs Labs: 10/07/16 06:30 10/07/16 06:30 PT 12.0 SECONDS (9.6-11.2) H 10/07/16 06:30 INR 1.15 (0.92-1.08) H 10/07/16 06:30 APTT 32.3 SECONDS (23.3-32.5) 10/07/16 06:30 - Constitutional Appears: Well, Non-toxic, No Acute Distress - Extremities Exam Additional comments: b/l BKA, dressings Clean dry intact, knee immobilizer in place. - Neurological Exam Neurological Exam: Alert, Awake, Oriented x3 - Psychiatric Exam Psychiatric exam: Normal Affect, Normal Mood Assessment and Plan - Assessment and Plan (Free Text) Assessment: 46F s/p Right BKA POD#8 - Continue pain control prn - F/U H/H - Continue knee immobilizer to R stump - PT/OT - Blood thinners held for D&C as per OBGYN Further recs discuss with Dr. Mccormack
[2016-10-09] MEDS: HYDROmorphone 0.5 mg/0.5 ml ISec IVP PRN ×3 (08:04→19:44)
[2016-10-09] MEDS: Linezolid 600 mg in D5W 300 ml 600 MG/300 ML BAG IVPB SCH ×2 (09:41→20:16)
[2016-10-09] MEDS: Hydrocortisone 2.5% (Rectal) CREAM PR SCH ×2 (09:42→17:41)
[2016-10-09] MEDS: Insulin Lispro (humaLOG) 100 Units/ml Inj SC SCH ×3 (09:43→17:42)
[2016-10-09] MEDS: Lidocaine 5% Patch TD SCH (09:44)
[2016-10-09] MEDS: Nystatin Ointment TOP SCH ×3 (09:45→17:43)
[2016-10-09] MEDS: Multivitamin Vitamin B Complex (Nephro-Vite) Tab PO SCH (09:50)
[2016-10-09] MEDS: Pantoprazole 40 mg EC Tab PO SCH (09:51)
--- NOTE | 2016-10-09 10:41 | CP.PCM.PN ---
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 She says she feels weak. She is tearful. She has had some pain in the right residual limb, for which she was given Dilaudid. Her temperature is elevated at 99.5 deg. Her pulse is 120. BP OK. She has no cough, no dyspnea, and no chest pain. BM's are normal. She continues on IV amikacin, meropenem, zyvox and zosyn as well as po fluconazole. I have ordered blood cultures x 2 to be done via Permacath, fungal blood culture, and amikacin level along with CBC and CMP. I have requested that surgical endoscopist obtain a swab culture of the right residual limb wound as well. For HD today. She is to receive 2 units of rbc's during hemodialysis today. For D & C and endometrial ablation on Friday for protracted vaginal bleeding. Eliquis is on hold as of today. ASA has been on hold. To continue PT, OT. Objective - Vital Signs/Intake and Output Vital Signs (last 24 hours): Temp Pulse Resp BP Pulse Ox 99.5 F 120 H 20 152/77 H 96 10/09/16 08:04 10/09/16 08:04 10/09/16 08:04 10/09/16 08:04 10/09/16 08:04 - Medications Medications: Current Medications Acetaminophen (Tylenol 325mg Tab) 650 mg PO Q4 PRN PRN Reason: Fever >100.4 F Last Admin: 10/02/16 16:27 Dose: 650 mg Acetaminophen (Tylenol 325mg Tab) 650 mg PO Q4 PRN PRN Reason: Pain, moderate (4-7) Last Admin: 09/16/16 22:34 Dose: 650 mg Albuterol Sulfate (Albuterol 0.083% Inhal Barbie (2.5 Mg/3 Ml) Ud) 2.5 mg INH RQ4 PRN PRN Reason: Shortness of Breath Albuterol/Ipratropium (Duoneb 3 Mg/0.5 Mg (3 Ml) Ud) 3 ml INH RQ4 PRN PRN Reason: Shortness of Breath Apixaban (Eliquis) 5 mg PO BID JASPER PRN Reason: Protocol Aspirin (Ecotrin) 81 mg PO DAILY [facility] Last Admin: 10/06/16 09:06 Dose: 81 mg Atorvastatin Calcium (Lipitor) 40 mg PO DAILY [facility] Last Admin: 10/09/16 09:45 Dose: 40 mg Benzonatate (Tessalon Perles) 200 mg PO TID PRN PRN Reason: Cough Last Admin: 10/02/16 14:07 Dose: 200 mg Cinacalcet (Sensipar) 30 mg PO DAILY [facility] Last Admin: 10/09/16 09:52 Dose: 30 mg Diphenhydramine HCl (Benadryl) 25 mg PO Q6 PRN PRN Reason: Itching / Pruritus Epoetin Tha (Procrit) 20,000 unit IV [facility] [place] Last Admin: 10/07/16 19:36 Dose: 20,000 unit Ergocalciferol (Drisdol 50,000 Intl Units Cap) 1 cap PO Q7D [facility] Stop: 11/06/16 11:16 Last Admin: 10/02/16 14:06 Dose: 1 cap Fluconazole (Diflucan) 100 mg PO DAILY [facility] Last Admin: 10/09/16 09:43 Dose: 100 mg Gabapentin (Neurontin) 300 mg PO TID [facility] Last Admin: 10/09/16 09:51 Dose: 300 mg Hydrocortisone (Anusol-Hc) 1 applic [place] BID [facility] Last Admin: 10/09/16 09:42 Dose: 1 applic Hydromorphone HCl (Dilaudid) 1 mg IVP Q3H PRN PRN Reason: Pain, severe (8-10) Last Admin: 10/09/16 08:04 Dose: 1 mg Amikacin Sulfate 250 mg/ (Sodium Chloride) 101 mls @ 100.609 mls/hr IVPB MWF [facility] Last Admin: 10/09/16 09:40 Dose: 100.609 mls/hr Meropenem 500 mg/ Sodium (Chloride) 100 mls @ 100 mls/hr IVPB DAILY@0100 [facility] Last Admin: 10/09/16 00:56 Dose: 100 mls/hr Piperacillin Sod/Tazobactam (Sod 2.25 gm/ Sodium Chloride) 100 mls @ 100 mls/ hr IVPB Q12@0600,1800 [facility] Last Admin: 10/09/16 06:09 Dose: 100 mls/hr Sodium Chloride (Sodium Chloride 0.9%) 1,000 mls @ 10 mls/hr IV .Q24H [facility] Last Admin: 10/08/16 17:05 Dose: 10 mls/hr Linezolid (Zyvox 600mg/300ml D5w) 600 mg in 300 mls @ 300 mls/hr IVPB Q12@0800, 2000 [facility] Last Admin: 10/09/16 09:41 Dose: 300 mls/hr Insulin Detemir (Levemir) 34 units SC HS [facility] Last Admin: 10/08/16 21:53 Dose: 34 units Insulin Human Lispro (Humalog) 10 units SC AC [facility] Last Admin: 10/09/16 09:43 Dose: 10 unit Lidocaine (Lidoderm) 1 ea TD DAILY [facility] Last Admin: 10/09/16 09:44 Dose: 1 ea Medroxyprogesterone Acetate (Provera) 10 mg PO DAILY [facility] Last Admin: 10/09/16 09:51 Dose: 10 mg Nystatin (Mycostatin Oint) 1 applic TOP TID [facility] Last Admin: 10/09/16 09:45 Dose: 1 applic Ondansetron HCl (Zofran Inj) 4 mg IVP Q6 PRN PRN Reason: Nausea/Vomiting Last Admin: 09/19/16 10:26 Dose: 4 mg Pantoprazole Sodium (Protonix Ec Tab) 40 mg PO DAILY [facility] Last Admin: 10/09/16 09:51 Dose: 40 mg Sevelamer HCl (Renagel) 1,600 mg PO TID [facility] Last Admin: 10/09/16 09:51 Dose: 1,600 mg Topiramate (Topamax) 50 mg PO BID [facility] Last Admin: 10/09/16 09:52 Dose: 50 mg Vitamin B Complex/Vit C/Folic Acid (Nephro-Ajay) 1 tab PO DAILY [facility] Last Admin: 10/09/16 09:50 Dose: 1 tab - Labs Labs: 10/07/16 06:30 10/07/16 06:30 PT 12.0 SECONDS (9.6-11.2) H 10/07/16 06:30 INR 1.15 (0.92-1.08) H 10/07/16 06:30 APTT 32.3 SECONDS (23.3-32.5) 10/07/16 06:30 - Constitutional Appears: Other (Feels weak, tired, is teaful.) - Head Exam Head Exam: NORMAL INSPECTION - Eye Exam Eye Exam: Normal appearance - ENT Exam ENT Exam: Mucous Membranes Moist - Neck Exam Neck Exam: Normal Inspection - Respiratory Exam Respiratory Exam: Clear to Ausculation Bilateral, NORMAL BREATHING PATTERN - Cardiovascular Exam Cardiovascular Exam: REGULAR RHYTHM, +S1, +S2 - GI/Abdominal Exam GI & Abdominal Exam: Soft - Extremities Exam Additional comments: Dressing dry and intact right BK residual limb. Awaiting surgical re- evaluation and wound culture. Both hands warm and radial pulses present. - Back Exam Back Exam: NORMAL INSPECTION - Neurological Exam Neurological Exam: Alert, Awake, CN II-XII Intact - Psychiatric Exam Psychiatric exam: Anxious, Depressed - Skin Additional comments: Dressing intact buttock area. Excoriations beneath breasts have healed. Assessment and Plan (1) Status post below knee amputation of right lower extremity Assessment & Plan: Low grade fever is a concern, but we are not sure of the source. Cultures requested. SEE SUBJECTIVE. Status: Acute (2) Osteomyelitis of ankle or foot Assessment & Plan: A CONCERN DESPITE AMPUTATION... Status: Acute (3) ESRD (end stage renal disease) on dialysis Status: Chronic (4) DM type 2 (diabetes mellitus, type 2) Assessment & Plan: Discussed with dietitian. Generally glycemia controlled on current insulin. WILL KEEP CURRENT DIET, BUT PUT EQUAL ON TRAY INSTEAD OF SUGAR. Status: Chronic (5) Coagulopathy Assessment & Plan: SEE SUBJECTIVE. Status: Chronic (6) Anemia, blood loss Assessment & Plan: SEE SUBJECTIVE. Status: Acute (7) Peripheral arterial occlusive disease Status: Chronic
[2016-10-09] MEDS ORDERED: Iodoform 1/2inx15ft BOT EXT ONE (11:14)
[2016-10-09 13:17] LABS: BASO # 0.1 K/uL (0.0-0.2); BASO % 0.8 % (0.0-2.0); EOS # 0.5 K/uL (0.0-0.7); EOS % 4.9 % (0.0-4.0); HEMATOCRIT 24.9 % (34.0-47.0); LYMPH # 1.2 K/uL (1.0-4.3); LYMPH % 12.3 % (20.0-40.0); MEAN CELL VOLUME 91.8 fl (81.0-99.0); MEAN CORPUSCULAR HEMOGLOBIN 29.6 pg (27.0-31.0); MEAN CORPUSCULAR HGB CONC 32.2 g/dL (33.0-37.0); MEAN PLATELET VOLUME 8.6 fl (7.2-11.7); MONO # 0.9 K/uL (0.0-0.8); MONO % 8.9 % (0.0-10.0); NEUT # 7.4 K/uL (1.8-7.0); NEUT % 73.1 % (50.0-75.0); RED CELL DISTRIBUTION WIDTH 17.4 % (11.5-14.5); WHITE BLOOD COUNT 10.2 K/uL (4.8-10.8)
[2016-10-09 13:23] LABS: ALB/GLOB RATIO 0.7 (1.0-2.1); BILIRUBIN,TOTAL 0.5 mg/dl (0.2-1.3); CALCIUM 9.1 mg/dL (8.4-10.2)
--- NOTE | 2016-10-09 14:36 | CP.PCM.PN ---
Subjective - Date & Time of Evaluation Date of Evaluation: 10/09/16 Time of Evaluation: 14:33 - Subjective Subjective: She was seen on hemodialysis now. Patient was given 100 mL normal saline because the blood pressure went down somewhat and now the blood pressure is around 120/80 Patient scheduled to receive blood transfusion shortly now on dialysis. Objective - Vital Signs/Intake and Output Vital Signs (last 24 hours): Temp Pulse Resp BP Pulse Ox 99.5 F 120 H 20 152/77 H 96 10/09/16 08:04 10/09/16 08:04 10/09/16 08:04 10/09/16 08:04 10/09/16 08:04 - Medications Medications: Current Medications Acetaminophen (Tylenol 325mg Tab) 650 mg PO Q4 PRN PRN Reason: Fever >100.4 F Last Admin: 10/02/16 16:27 Dose: 650 mg Acetaminophen (Tylenol 325mg Tab) 650 mg PO Q4 PRN PRN Reason: Pain, moderate (4-7) Last Admin: 09/16/16 22:34 Dose: 650 mg Albuterol Sulfate (Albuterol 0.083% Inhal Barbie (2.5 Mg/3 Ml) Ud) 2.5 mg INH RQ4 PRN PRN Reason: Shortness of Breath Albuterol/Ipratropium (Duoneb 3 Mg/0.5 Mg (3 Ml) Ud) 3 ml INH RQ4 PRN PRN Reason: Shortness of Breath Apixaban (Eliquis) 5 mg PO BID [facility] PRN Reason: Protocol Aspirin (Ecotrin) 81 mg PO DAILY [facility] Last Admin: 10/06/16 09:06 Dose: 81 mg Atorvastatin Calcium (Lipitor) 40 mg PO DAILY [facility] Last Admin: 10/09/16 09:45 Dose: 40 mg Benzonatate (Tessalon Perles) 200 mg PO TID PRN PRN Reason: Cough Last Admin: 10/02/16 14:07 Dose: 200 mg Cinacalcet (Sensipar) 30 mg PO DAILY [facility] Last Admin: 10/09/16 09:52 Dose: 30 mg Diphenhydramine HCl (Benadryl) 25 mg PO Q6 PRN PRN Reason: Itching / Pruritus Epoetin Tha (Procrit) 20,000 unit IV MWF [facility] Last Admin: 10/07/16 19:36 Dose: 20,000 unit Ergocalciferol (Drisdol 50,000 Intl Units Cap) 1 cap PO Q7D [facility] Stop: 11/06/16 11:16 Last Admin: 10/02/16 14:06 Dose: 1 cap Fluconazole (Diflucan) 100 mg PO DAILY [facility] Last Admin: 10/09/16 09:43 Dose: 100 mg Gabapentin (Neurontin) 300 mg PO TID [facility] Last Admin: 10/09/16 13:37 Dose: 300 mg Hydrocortisone (Anusol-Hc) 1 applic [place] BID [facility] Last Admin: 10/09/16 09:42 Dose: 1 applic Hydromorphone HCl (Dilaudid) 1 mg IVP Q3H PRN PRN Reason: Pain, severe (8-10) Last Admin: 10/09/16 08:04 Dose: 1 mg Amikacin Sulfate 250 mg/ (Sodium Chloride) 101 mls @ 100.609 mls/hr IVPB MWF [facility] Last Admin: 10/09/16 09:40 Dose: 100.609 mls/hr Meropenem 500 mg/ Sodium (Chloride) 100 mls @ 100 mls/hr IVPB DAILY@0100 [facility] Last Admin: 10/09/16 00:56 Dose: 100 mls/hr Piperacillin Sod/Tazobactam (Sod 2.25 gm/ Sodium Chloride) 100 mls @ 100 mls/ hr IVPB Q12@0600,1800 [facility] Last Admin: 10/09/16 06:09 Dose: 100 mls/hr Sodium Chloride (Sodium Chloride 0.9%) 1,000 mls @ 10 mls/hr IV .Q24H [facility] Last Admin: 10/08/16 17:05 Dose: 10 mls/hr Linezolid (Zyvox 600mg/300ml D5w) 600 mg in 300 mls @ 300 mls/hr IVPB Q12@0800, 2000 [facility] Last Admin: 10/09/16 09:41 Dose: 300 mls/hr Insulin Detemir (Levemir) 34 units SC HS [facility] Last Admin: 10/08/16 21:53 Dose: 34 units Insulin Human Lispro (Humalog) 10 units SC AC [facility] Last Admin: 10/09/16 13:36 Dose: Not Given Lidocaine (Lidoderm) 1 ea TD DAILY [facility] Last Admin: 10/09/16 09:44 Dose: 1 ea Medroxyprogesterone Acetate (Provera) 10 mg PO DAILY [facility] Last Admin: 10/09/16 09:51 Dose: 10 mg Nystatin (Mycostatin Oint) 1 applic TOP TID [facility] Last Admin: 10/09/16 13:37 Dose: 1 applic Ondansetron HCl (Zofran Inj) 4 mg IVP Q6 PRN PRN Reason: Nausea/Vomiting Last Admin: 09/19/16 10:26 Dose: 4 mg Pantoprazole Sodium (Protonix Ec Tab) 40 mg PO DAILY [facility] Last Admin: 10/09/16 09:51 Dose: 40 mg Sevelamer HCl (Renagel) 1,600 mg PO TID [facility] Last Admin: 10/09/16 13:37 Dose: 1,600 mg Topiramate (Topamax) 50 mg PO BID [facility] Last Admin: 10/09/16 09:52 Dose: 50 mg Vitamin B Complex/Vit C/Folic Acid (Nephro-Ajay) 1 tab PO DAILY [facility] Last Admin: 10/09/16 09:50 Dose: 1 tab - Labs Labs: 10/09/16 13:00 10/09/16 13:00 PT 12.0 SECONDS (9.6-11.2) H 10/07/16 06:30 INR 1.15 (0.92-1.08) H 10/07/16 06:30 APTT 32.3 SECONDS (23.3-32.5) 10/07/16 06:30 - Constitutional Appears: No Acute Distress - ENT Exam ENT Exam: Mucous Membranes Moist - Respiratory Exam Respiratory Exam: absent: Chest Wall Tenderness - GI/Abdominal Exam GI & Abdominal Exam: absent: Guarding - Extremities Exam Extremities Exam: absent: Calf Tenderness - Back Exam Back Exam: absent: CVA tenderness (L), CVA tenderness (R) - Neurological Exam Neurological Exam: Alert Assessment and Plan (1) ESRD (end stage renal disease) Assessment & Plan: Patient receiving dialysis with the blood transfusion to start now Patient appears to be depressed somewhat . Hemodialysis up and running well Again in summary for now is status post amputation below-knee on the right leg Antibiotics and the rest of the management and the pain management as per primary team Status: Chronic (2) Cellulitis of leg Status: Chronic
--- NOTE | 2016-10-09 15:33 | PN ---
DATE: 10/09/2016 ROOM: 663 SUBJECTIVE: This is a 46-year-old female with recent right below-knee amputation undertaken last because of severe underlying acute osteomyelitis and cellulitis with a nonhealing, neuropathic ____ underlying severe peripheral arterial vasculopathy and is now being followed closely for metabolic m anagement. She has improved clinically and metabolically as noted thereof. Her latest chemistries i nclude a BUN of 32, sodium 141, potassium 4.0, chloride 101, CO2 26, glucose 82, creatinine 6.1. So at this time, we will continue the same basal and bolus insulin regimen to allow for dose equilibrati on and keep her on the Humalog given as 10 units subQ t.i.d. before meals as given, also the same Lev jayden given as basal insulin overnight at 34 units subQ at bedtime daily as given. We will titrate in crementally as indicated to optimize metabolic control. We will obtain serial chemistries and supple ment accordingly as needed. We will follow. Irene Ambrose MD cc: [id number] TT: 10/09/2016 15:32:41 Confirmation # [id number] Dictation # [id number] jn
[2016-10-09] MEDS: Ergocalciferol 50,000 Intl Units Cap PO SCH (17:42)
[2016-10-09] MEDS: Epoetin Alfa 20000 UNIT/ML Inj IV SCH (17:43)
[2016-10-09] MEDS: Sodium Chloride 0.9% 1,000 ML IV SCH (17:44)
[2016-10-09] MEDS: Insulin Detemir 100 Units/ml Inj SC SCH (23:10)
[2016-10-10] MEDS: Meropenem 500 MG in Sodium Chloride 0.9% 100 ML IVPB SCH (00:44)
[2016-10-10] MEDS: HYDROmorphone 0.5 mg/0.5 ml ISec IVP PRN ×4 (00:44→18:35)
--- NOTE | 2016-10-10 01:10 | CP.PCM.PN ---
Subjective - Date & Time of Evaluation Date of Evaluation: 10/09/16 Time of Evaluation: 21:00 - Subjective Subjective: No seizures, she is on Topamax 50 mg Q 12 hrs She had her dialysis today, 2 Units of PRBCs, she was not active like usual, her Temperature was 99.5. BP is slightly low normal. Objective - Vital Signs/Intake and Output Vital Signs (last 24 hours): Temp Pulse Resp BP Pulse Ox 99.1 F 116 H 19 97/43 L 98 10/10/16 00:51 10/10/16 00:51 10/10/16 00:51 10/10/16 00:51 10/10/16 00:51 - Medications Medications: Current Medications Acetaminophen (Tylenol 325mg Tab) 650 mg PO Q4 PRN PRN Reason: Fever >100.4 F Last Admin: 10/02/16 16:27 Dose: 650 mg Acetaminophen (Tylenol 325mg Tab) 650 mg PO Q4 PRN PRN Reason: Pain, moderate (4-7) Last Admin: 09/16/16 22:34 Dose: 650 mg Albuterol Sulfate (Albuterol 0.083% Inhal Barbie (2.5 Mg/3 Ml) Ud) 2.5 mg INH RQ4 PRN PRN Reason: Shortness of Breath Albuterol/Ipratropium (Duoneb 3 Mg/0.5 Mg (3 Ml) Ud) 3 ml INH RQ4 PRN PRN Reason: Shortness of Breath Apixaban (Eliquis) 5 mg PO BID [facility] PRN Reason: Protocol Aspirin (Ecotrin) 81 mg PO DAILY [facility] Last Admin: 10/06/16 09:06 Dose: 81 mg Atorvastatin Calcium (Lipitor) 40 mg PO DAILY [facility] Last Admin: 10/09/16 09:45 Dose: 40 mg Benzonatate (Tessalon Perles) 200 mg PO TID PRN PRN Reason: Cough Last Admin: 10/02/16 14:07 Dose: 200 mg Cinacalcet (Sensipar) 30 mg PO DAILY [facility] Last Admin: 10/09/16 09:52 Dose: 30 mg Diphenhydramine HCl (Benadryl) 25 mg PO Q6 PRN PRN Reason: Itching / Pruritus Epoetin Tha (Procrit) 20,000 unit IV MWF [facility] Last Admin: 10/09/16 17:43 Dose: 20,000 unit Ergocalciferol (Drisdol 50,000 Intl Units Cap) 1 cap PO Q7D [facility] Stop: 11/06/16 11:16 Last Admin: 10/09/16 17:42 Dose: 1 cap Fluconazole (Diflucan) 100 mg PO DAILY [facility] Last Admin: 10/09/16 09:43 Dose: 100 mg Gabapentin (Neurontin) 300 mg PO TID [facility] Last Admin: 10/09/16 17:43 Dose: 300 mg Hydrocortisone (Anusol-Hc) 1 applic [place] BID [facility] Last Admin: 10/09/16 17:41 Dose: 1 applic Hydromorphone HCl (Dilaudid) 1 mg IVP Q3H PRN PRN Reason: Pain, severe (8-10) Last Admin: 10/10/16 00:44 Dose: 1 mg Amikacin Sulfate 250 mg/ (Sodium Chloride) 101 mls @ 100.609 mls/hr IVPB MWF [facility] Last Admin: 10/09/16 09:40 Dose: 100.609 mls/hr Meropenem 500 mg/ Sodium (Chloride) 100 mls @ 100 mls/hr IVPB DAILY@0100 [facility] Last Admin: 10/10/16 00:44 Dose: 100 mls/hr Piperacillin Sod/Tazobactam (Sod 2.25 gm/ Sodium Chloride) 100 mls @ 100 mls/ hr IVPB Q12@0600,1800 [facility] Last Admin: 10/09/16 19:42 Dose: 100 mls/hr Sodium Chloride (Sodium Chloride 0.9%) 1,000 mls @ 10 mls/hr IV .Q24H [facility] Last Admin: 10/09/16 17:44 Dose: 10 mls/hr Linezolid (Zyvox 600mg/300ml D5w) 600 mg in 300 mls @ 300 mls/hr IVPB Q12@0800, 2000 [facility] Last Admin: 10/09/16 20:16 Dose: 300 mls/hr Insulin Detemir (Levemir) 34 units SC HS [facility] Last Admin: 10/09/16 23:10 Dose: 34 units Insulin Human Lispro (Humalog) 10 units SC AC [facility] Last Admin: 10/09/16 17:42 Dose: 10 unit Lidocaine (Lidoderm) 1 ea TD DAILY [facility] Last Admin: 10/09/16 09:44 Dose: 1 ea Medroxyprogesterone Acetate (Provera) 10 mg PO DAILY [facility] Last Admin: 10/09/16 09:51 Dose: 10 mg Nystatin (Mycostatin Oint) 1 applic TOP TID [facility] Last Admin: 10/09/16 17:43 Dose: 1 applic Ondansetron HCl (Zofran Inj) 4 mg IVP Q6 PRN PRN Reason: Nausea/Vomiting Last Admin: 09/19/16 10:26 Dose: 4 mg Pantoprazole Sodium (Protonix Ec Tab) 40 mg PO DAILY [facility] Last Admin: 10/09/16 09:51 Dose: 40 mg Sevelamer HCl (Renagel) 1,600 mg PO TID [facility] Last Admin: 10/09/16 17:44 Dose: 1,600 mg Topiramate (Topamax) 50 mg PO BID [facility] Last Admin: 10/09/16 17:45 Dose: 50 mg Vitamin B Complex/Vit C/Folic Acid (Nephro-Ajay) 1 tab PO DAILY [facility] Last Admin: 10/09/16 09:50 Dose: 1 tab - Labs Labs: 10/09/16 13:00 10/09/16 13:00 PT 12.0 SECONDS (9.6-11.2) H 10/07/16 06:30 INR 1.15 (0.92-1.08) H 10/07/16 06:30 APTT 32.3 SECONDS (23.3-32.5) 10/07/16 06:30 Assessment and Plan (1) Diabetes Status: Chronic (2) ESRD (end stage renal disease) Status: Chronic (3) Cellulitis of leg Status: Chronic (4) Hyperlipidemia Status: Chronic (5) Back pain Status: Acute (6) Bacteremia due to Gram-negative bacteria Status: Acute (7) Diabetes mellitus type 2 with peripheral artery disease Status: Acute (8) PVD (peripheral vascular disease) Status: Acute (9) Osteomyelitis of right foot Status: Acute (10) Fungal infection right foot Status: Acute
--- NOTE | 2016-10-10 08:18 | CP.PCM.PN ---
Subjective - Date & Time of Evaluation Date of Evaluation: 10/10/16 Time of Evaluation: 07:18 - Subjective Subjective: This is a vascular surgery progress note for Dr. Mccormack: 46 y/o female patient 9 days s/p Right BKA was seen at bedside this morning. Patient was resting comfortably in bed. Dressings clean, dry and itnact. Pain to Right knee controlled. Opting for physical therapy today. Denies n/f/v/d/c/ sob. Objective - Vital Signs/Intake and Output Vital Signs (last 24 hours): Temp Pulse Resp BP Pulse Ox 99.1 F 116 H 19 97/43 L 98 10/10/16 00:51 10/10/16 00:51 10/10/16 00:51 10/10/16 00:51 10/10/16 00:51 - Medications Medications: Current Medications Acetaminophen (Tylenol 325mg Tab) 650 mg PO Q4 PRN PRN Reason: Fever >100.4 F Last Admin: 10/02/16 16:27 Dose: 650 mg Acetaminophen (Tylenol 325mg Tab) 650 mg PO Q4 PRN PRN Reason: Pain, moderate (4-7) Last Admin: 09/16/16 22:34 Dose: 650 mg Albuterol Sulfate (Albuterol 0.083% Inhal Barbie (2.5 Mg/3 Ml) Ud) 2.5 mg INH RQ4 PRN PRN Reason: Shortness of Breath Albuterol/Ipratropium (Duoneb 3 Mg/0.5 Mg (3 Ml) Ud) 3 ml INH RQ4 PRN PRN Reason: Shortness of Breath Apixaban (Eliquis) 5 mg PO BID [facility] PRN Reason: Protocol Aspirin (Ecotrin) 81 mg PO DAILY [facility] Last Admin: 10/06/16 09:06 Dose: 81 mg Atorvastatin Calcium (Lipitor) 40 mg PO DAILY [facility] Last Admin: 10/09/16 09:45 Dose: 40 mg Benzonatate (Tessalon Perles) 200 mg PO TID PRN PRN Reason: Cough Last Admin: 10/02/16 14:07 Dose: 200 mg Cinacalcet (Sensipar) 30 mg PO DAILY [facility] Last Admin: 10/09/16 09:52 Dose: 30 mg Diphenhydramine HCl (Benadryl) 25 mg PO Q6 PRN PRN Reason: Itching / Pruritus Epoetin Tha (Procrit) 20,000 unit IV MWF [facility] Last Admin: 10/09/16 17:43 Dose: 20,000 unit Ergocalciferol (Drisdol 50,000 Intl Units Cap) 1 cap PO Q7D [facility] Stop: 11/06/16 11:16 Last Admin: 10/09/16 17:42 Dose: 1 cap Fluconazole (Diflucan) 100 mg PO DAILY [facility] Last Admin: 10/09/16 09:43 Dose: 100 mg Gabapentin (Neurontin) 300 mg PO TID [facility] Last Admin: 10/09/16 17:43 Dose: 300 mg Hydrocortisone (Anusol-Hc) 1 applic [place] BID [facility] Last Admin: 10/09/16 17:41 Dose: 1 applic Hydromorphone HCl (Dilaudid) 1 mg IVP Q3H PRN PRN Reason: Pain, severe (8-10) Last Admin: 10/10/16 06:44 Dose: 1 mg Amikacin Sulfate 250 mg/ (Sodium Chloride) 101 mls @ 100.609 mls/hr IVPB [facility] Last Admin: 10/09/16 09:40 Dose: 100.609 mls/hr Meropenem 500 mg/ Sodium (Chloride) 100 mls @ 100 mls/hr IVPB DAILY@0100 [facility] Last Admin: 10/10/16 00:44 Dose: 100 mls/hr Piperacillin Sod/Tazobactam (Sod 2.25 gm/ Sodium Chloride) 100 mls @ 100 mls/ hr IVPB Q12@0600,1800 [facility] Last Admin: 10/10/16 05:40 Dose: 100 mls/hr Sodium Chloride (Sodium Chloride 0.9%) 1,000 mls @ 10 mls/hr IV .Q24H [facility] Last Admin: 10/09/16 17:44 Dose: 10 mls/hr Linezolid (Zyvox 600mg/300ml D5w) 600 mg in 300 mls @ 300 mls/hr IVPB Q12@0800, 2000 [facility] Last Admin: 10/09/16 20:16 Dose: 300 mls/hr Insulin Detemir (Levemir) 34 units SC HS [facility] Last Admin: 10/09/16 23:10 Dose: 34 units Insulin Human Lispro (Humalog) 10 units SC AC [facility] Last Admin: 10/09/16 17:42 Dose: 10 unit Lidocaine (Lidoderm) 1 ea TD DAILY [facility] Last Admin: 10/09/16 09:44 Dose: 1 ea Medroxyprogesterone Acetate (Provera) 10 mg PO DAILY [facility] Last Admin: 10/09/16 09:51 Dose: 10 mg Nystatin (Mycostatin Oint) 1 applic TOP TID [facility] Last Admin: 10/09/16 17:43 Dose: 1 applic Ondansetron HCl (Zofran Inj) 4 mg IVP Q6 PRN PRN Reason: Nausea/Vomiting Last Admin: 09/19/16 10:26 Dose: 4 mg Pantoprazole Sodium (Protonix Ec Tab) 40 mg PO DAILY [facility] Last Admin: 10/09/16 09:51 Dose: 40 mg Sevelamer HCl (Renagel) 1,600 mg PO TID [facility] Last Admin: 10/09/16 17:44 Dose: 1,600 mg Topiramate (Topamax) 50 mg PO BID [facility] Last Admin: 10/09/16 17:45 Dose: 50 mg Vitamin B Complex/Vit C/Folic Acid (Nephro-Ajay) 1 tab PO DAILY [facility] Last Admin: 10/09/16 09:50 Dose: 1 tab - Labs Labs: 10/09/16 13:00 10/09/16 13:00 PT 12.0 SECONDS (9.6-11.2) H 10/07/16 06:30 INR 1.15 (0.92-1.08) H 10/07/16 06:30 APTT 32.3 SECONDS (23.3-32.5) 10/07/16 06:30 - Constitutional Appears: Well, Non-toxic, No Acute Distress - Extremities Exam Additional comments: Dressing to Right knee clean, dry and intact - Neurological Exam Neurological Exam: Alert, Awake, Oriented x3 - Psychiatric Exam Psychiatric exam: Normal Affect, Normal Mood - Skin Skin Exam: Normal Color, Warm Assessment and Plan - Assessment and Plan (Free Text) Assessment: 46F s/p Right BKA POD#9 Plan: - Continue pain control prn - 2 Units of PRBC given - HD today - WCX result pending - Continue knee immobilizer to R stump - Continue PT/OT - Blood thinners held for D&C as per OBGYN Further recs discuss with Dr. Mccormack
--- NOTE | 2016-10-10 08:24 | CP.PCM.PN ---
Subjective - Date & Time of Evaluation Date of Evaluation: 10/10/16 Time of Evaluation: 08:17 - Subjective Subjective: Pt is feeling much better today. She received 2 units of packed cells with her dialysis yesterday. Will check her hgb today. She is scheduled to have a D&C tomorrow. Objective - Vital Signs/Intake and Output Vital Signs (last 24 hours): Temp Pulse Resp BP Pulse Ox 99.1 F 116 H 19 97/43 L 98 10/10/16 00:51 10/10/16 00:51 10/10/16 00:51 10/10/16 00:51 10/10/16 00:51 - Medications Medications: Current Medications Acetaminophen (Tylenol 325mg Tab) 650 mg PO Q4 PRN PRN Reason: Fever >100.4 F Last Admin: 10/02/16 16:27 Dose: 650 mg Acetaminophen (Tylenol 325mg Tab) 650 mg PO Q4 PRN PRN Reason: Pain, moderate (4-7) Last Admin: 09/16/16 22:34 Dose: 650 mg Albuterol Sulfate (Albuterol 0.083% Inhal Barbie (2.5 Mg/3 Ml) Ud) 2.5 mg INH RQ4 PRN PRN Reason: Shortness of Breath Albuterol/Ipratropium (Duoneb 3 Mg/0.5 Mg (3 Ml) Ud) 3 ml INH RQ4 PRN PRN Reason: Shortness of Breath Apixaban (Eliquis) 5 mg PO BID [facility] PRN Reason: Protocol Aspirin (Ecotrin) 81 mg PO DAILY [facility] Last Admin: 10/06/16 09:06 Dose: 81 mg Atorvastatin Calcium (Lipitor) 40 mg PO DAILY [facility] Last Admin: 10/09/16 09:45 Dose: 40 mg Benzonatate (Tessalon Perles) 200 mg PO TID PRN PRN Reason: Cough Last Admin: 10/02/16 14:07 Dose: 200 mg Cinacalcet (Sensipar) 30 mg PO DAILY [facility] Last Admin: 10/09/16 09:52 Dose: 30 mg Diphenhydramine HCl (Benadryl) 25 mg PO Q6 PRN PRN Reason: Itching / Pruritus Epoetin Tha (Procrit) 20,000 unit IV MWF [facility] Last Admin: 05/31/17 17:43 Dose: 20,000 unit Ergocalciferol (Drisdol 50,000 Intl Units Cap) 1 cap PO Q7D [facility] Stop: 11/06/16 11:16 Last Admin: 10/09/16 17:42 Dose: 1 cap Fluconazole (Diflucan) 100 mg PO DAILY [facility] Last Admin: 10/09/16 09:43 Dose: 100 mg Gabapentin (Neurontin) 300 mg PO TID [facility] Last Admin: 10/09/16 17:43 Dose: 300 mg Hydrocortisone (Anusol-Hc) 1 applic [place] BID [facility] Last Admin: 10/09/16 17:41 Dose: 1 applic Hydromorphone HCl (Dilaudid) 1 mg IVP Q3H PRN PRN Reason: Pain, severe (8-10) Last Admin: 10/10/16 06:44 Dose: 1 mg Amikacin Sulfate 250 mg/ (Sodium Chloride) 101 mls @ 100.609 mls/hr IVPB MWF [facility] Last Admin: 10/09/16 09:40 Dose: 100.609 mls/hr Meropenem 500 mg/ Sodium (Chloride) 100 mls @ 100 mls/hr IVPB DAILY@0100 [facility] Last Admin: 10/10/16 00:44 Dose: 100 mls/hr Piperacillin Sod/Tazobactam (Sod 2.25 gm/ Sodium Chloride) 100 mls @ 100 mls/ hr IVPB Q12@0600,1800 [facility] Last Admin: 10/10/16 05:40 Dose: 100 mls/hr Sodium Chloride (Sodium Chloride 0.9%) 1,000 mls @ 10 mls/hr IV .Q24H [facility] Last Admin: 10/09/16 17:44 Dose: 10 mls/hr Linezolid (Zyvox 600mg/300ml D5w) 600 mg in 300 mls @ 300 mls/hr IVPB Q12@0800, 2000 [facility] Last Admin: 10/09/16 20:16 Dose: 300 mls/hr Insulin Detemir (Levemir) 34 units SC HS [facility] Last Admin: 10/09/16 23:10 Dose: 34 units Insulin Human Lispro (Humalog) 10 units SC AC [facility] Last Admin: 10/09/16 17:42 Dose: 10 unit Lidocaine (Lidoderm) 1 ea TD DAILY [facility] Last Admin: 10/09/16 09:44 Dose: 1 ea Medroxyprogesterone Acetate (Provera) 10 mg PO DAILY [facility] Last Admin: 10/09/16 09:51 Dose: 10 mg Nystatin (Mycostatin Oint) 1 applic TOP TID [facility] Last Admin: 10/09/16 17:43 Dose: 1 applic Ondansetron HCl (Zofran Inj) 4 mg IVP Q6 PRN PRN Reason: Nausea/Vomiting Last Admin: 09/19/16 10:26 Dose: 4 mg Pantoprazole Sodium (Protonix Ec Tab) 40 mg PO DAILY [facility] Last Admin: 10/09/16 09:51 Dose: 40 mg Sevelamer HCl (Renagel) 1,600 mg PO TID [facility] Last Admin: 10/09/16 17:44 Dose: 1,600 mg Topiramate (Topamax) 50 mg PO BID [facility] Last Admin: 10/09/16 17:45 Dose: 50 mg Vitamin B Complex/Vit C/Folic Acid (Nephro-Ajay) 1 tab PO DAILY [facility] Last Admin: 10/09/16 09:50 Dose: 1 tab - Labs Labs: 10/09/16 13:00 10/09/16 13:00 PT 12.0 SECONDS (9.6-11.2) H 10/07/16 06:30 INR 1.15 (0.92-1.08) H 10/07/16 06:30 APTT 32.3 SECONDS (23.3-32.5) 10/07/16 06:30
[2016-10-10] MEDS: Insulin Lispro (humaLOG) 100 Units/ml Inj SC SCH ×3 (08:33→17:14)
[2016-10-10] MEDS: Lidocaine 5% Patch TD SCH (08:34)
[2016-10-10] MEDS: Multivitamin Vitamin B Complex (Nephro-Vite) Tab PO SCH (08:37)
[2016-10-10] MEDS: Pantoprazole 40 mg EC Tab PO SCH (08:37)
[2016-10-10] MEDS: Nystatin Ointment TOP SCH ×3 (08:37→17:13)
[2016-10-10] MEDS: Linezolid 600 mg in D5W 300 ml 600 MG/300 ML BAG IVPB SCH ×2 (08:39→20:54)
[2016-10-10 09:09] LABS: BASO # 0.1 K/uL (0.0-0.2); BASO % 1.2 % (0.0-2.0); EOS # 0.6 K/uL (0.0-0.7); EOS % 5.9 % (0.0-4.0); HEMATOCRIT 30.3 % (34.0-47.0); LYMPH # 1.3 K/uL (1.0-4.3); LYMPH % 11.8 % (20.0-40.0); MEAN CELL VOLUME 90.4 fl (81.0-99.0); MEAN CORPUSCULAR HEMOGLOBIN 28.7 pg (27.0-31.0); MEAN CORPUSCULAR HGB CONC 31.7 g/dL (33.0-37.0); MEAN PLATELET VOLUME 8.5 fl (7.2-11.7); MONO # 1.1 K/uL (0.0-0.8); MONO % 10.7 % (0.0-10.0); NEUT # 7.5 K/uL (1.8-7.0); NEUT % 70.4 % (50.0-75.0); WHITE BLOOD COUNT 10.7 K/uL (4.8-10.8)
--- NOTE | 2016-10-10 09:23 | CP.PCM.PN ---
Subjective - Date & Time of Evaluation Date of Evaluation: 10/10/16 Time of Evaluation: 09:21 - Subjective Subjective: No significant changes overnight reported Patient transfused 2 units of packed cells on dialysis Hemoglobin noted to be improving White count stable Impression and plan Continue as scheduled for hemodialysis Friday Continue management as per primary team with antibiotics, wound care, pain management ETC Objective - Vital Signs/Intake and Output Vital Signs (last 24 hours): Temp Pulse Resp BP Pulse Ox 98.2 F 111 H 20 97/61 L 96 10/10/16 08:26 10/10/16 08:26 10/10/16 08:26 10/10/16 08:26 10/10/16 08:26 - Medications Medications: Current Medications Acetaminophen (Tylenol 325mg Tab) 650 mg PO Q4 PRN PRN Reason: Fever >100.4 F Last Admin: 10/02/16 16:27 Dose: 650 mg Acetaminophen (Tylenol 325mg Tab) 650 mg PO Q4 PRN PRN Reason: Pain, moderate (4-7) Last Admin: 09/16/16 22:34 Dose: 650 mg Albuterol Sulfate (Albuterol 0.083% Inhal Barbie (2.5 Mg/3 Ml) Ud) 2.5 mg INH RQ4 PRN PRN Reason: Shortness of Breath Albuterol/Ipratropium (Duoneb 3 Mg/0.5 Mg (3 Ml) Ud) 3 ml INH RQ4 PRN PRN Reason: Shortness of Breath Apixaban (Eliquis) 5 mg PO BID [facility] PRN Reason: Protocol Aspirin (Ecotrin) 81 mg PO DAILY [facility] Last Admin: 10/06/16 09:06 Dose: 81 mg Atorvastatin Calcium (Lipitor) 40 mg PO DAILY [facility] Last Admin: 10/10/16 08:36 Dose: 40 mg Benzonatate (Tessalon Perles) 200 mg PO TID PRN PRN Reason: Cough Last Admin: 10/02/16 14:07 Dose: 200 mg Cinacalcet (Sensipar) 30 mg PO DAILY [facility] Last Admin: 10/10/16 08:38 Dose: 30 mg Diphenhydramine HCl (Benadryl) 25 mg PO Q6 PRN PRN Reason: Itching / Pruritus Epoetin Tha (Procrit) 20,000 unit IV MWF [facility] Last Admin: 10/09/16 17:43 Dose: 20,000 unit Ergocalciferol (Drisdol 50,000 Intl Units Cap) 1 cap PO Q7D [facility] Stop: 11/06/16 11:16 Last Admin: 10/09/16 17:42 Dose: 1 cap Fluconazole (Diflucan) 100 mg PO DAILY [facility] Last Admin: 10/09/16 09:43 Dose: 100 mg Gabapentin (Neurontin) 300 mg PO TID [facility] Last Admin: 10/10/16 08:37 Dose: 300 mg Hydrocortisone (Anusol-Hc) 1 applic [place] BID [facility] Last Admin: 10/09/16 17:41 Dose: 1 applic Hydromorphone HCl (Dilaudid) 1 mg IVP Q3H PRN PRN Reason: Pain, severe (8-10) Last Admin: 10/10/16 06:44 Dose: 1 mg Amikacin Sulfate 250 mg/ (Sodium Chloride) 101 mls @ 100.609 mls/hr IVPB MWF [facility] Last Admin: 10/09/16 09:40 Dose: 100.609 mls/hr Meropenem 500 mg/ Sodium (Chloride) 100 mls @ 100 mls/hr IVPB DAILY@0100 [facility] Last Admin: 10/10/16 00:44 Dose: 100 mls/hr Piperacillin Sod/Tazobactam (Sod 2.25 gm/ Sodium Chloride) 100 mls @ 100 mls/ hr IVPB Q12@0600,1800 [facility] Last Admin: 10/10/16 05:40 Dose: 100 mls/hr Sodium Chloride (Sodium Chloride 0.9%) 1,000 mls @ 10 mls/hr IV .Q24H [facility] Last Admin: 10/09/16 17:44 Dose: 10 mls/hr Linezolid (Zyvox 600mg/300ml D5w) 600 mg in 300 mls @ 300 mls/hr IVPB Q12@0800, 2000 [facility] Last Admin: 10/10/16 08:39 Dose: 300 mls/hr Insulin Detemir (Levemir) 34 units SC HS [facility] Last Admin: 10/09/16 23:10 Dose: 34 units Insulin Human Lispro (Humalog) 10 units SC AC [facility] Last Admin: 10/10/16 08:33 Dose: 10 unit Lidocaine (Lidoderm) 1 ea TD DAILY [facility] Last Admin: 10/10/16 08:34 Dose: 1 ea Medroxyprogesterone Acetate (Provera) 10 mg PO DAILY [facility] Last Admin: 10/10/16 08:38 Dose: 10 mg Nystatin (Mycostatin Oint) 1 applic TOP TID [facility] Last Admin: 10/10/16 08:37 Dose: 1 applic Ondansetron HCl (Zofran Inj) 4 mg IVP Q6 PRN PRN Reason: Nausea/Vomiting Last Admin: 09/19/16 10:26 Dose: 4 mg Pantoprazole Sodium (Protonix Ec Tab) 40 mg PO DAILY [facility] Last Admin: 10/10/16 08:37 Dose: 40 mg Sevelamer HCl (Renagel) 1,600 mg PO TID [facility] Last Admin: 10/10/16 08:38 Dose: 1,600 mg Topiramate (Topamax) 50 mg PO BID [facility] Last Admin: 10/10/16 08:38 Dose: 50 mg Vitamin B Complex/Vit C/Folic Acid (Nephro-Ajay) 1 tab PO DAILY [facility] Last Admin: 10/10/16 08:37 Dose: 1 tab - Labs Labs: 10/10/16 09:04 10/09/16 13:00 PT 12.0 SECONDS (9.6-11.2) H 10/07/16 06:30 INR 1.15 (0.92-1.08) H 10/07/16 06:30 APTT 32.3 SECONDS (23.3-32.5) 10/07/16 06:30 Assessment and Plan (1) ESRD (end stage renal disease) Status: Chronic (2) Cellulitis of leg Status: Chronic
--- NOTE | 2016-10-10 10:11 | CP.PCM.PN ---
Subjective - Date & Time of Evaluation Date of Evaluation: 10/10/16 Time of Evaluation: 10:04 - Subjective Subjective: Still with vaginal bleeding but feels better today Objective - Vital Signs/Intake and Output Vital Signs (last 24 hours): Temp Pulse Resp BP Pulse Ox 98.2 F 111 H 20 97/61 L 96 10/10/16 08:26 10/10/16 08:26 10/10/16 08:26 10/10/16 08:26 10/10/16 08:26 - Medications Medications: Current Medications Acetaminophen (Tylenol 325mg Tab) 650 mg PO Q4 PRN PRN Reason: Fever >100.4 F Last Admin: 10/02/16 16:27 Dose: 650 mg Acetaminophen (Tylenol 325mg Tab) 650 mg PO Q4 PRN PRN Reason: Pain, moderate (4-7) Last Admin: 09/16/16 22:34 Dose: 650 mg Albuterol Sulfate (Albuterol 0.083% Inhal Barbie (2.5 Mg/3 Ml) Ud) 2.5 mg INH RQ4 PRN PRN Reason: Shortness of Breath Albuterol/Ipratropium (Duoneb 3 Mg/0.5 Mg (3 Ml) Ud) 3 ml INH RQ4 PRN PRN Reason: Shortness of Breath Apixaban (Eliquis) 5 mg PO BID [facility] PRN Reason: Protocol Aspirin (Ecotrin) 81 mg PO DAILY [facility] Last Admin: 10/06/16 09:06 Dose: 81 mg Atorvastatin Calcium (Lipitor) 40 mg PO DAILY [facility] Last Admin: 10/10/16 08:36 Dose: 40 mg Benzonatate (Tessalon Perles) 200 mg PO TID PRN PRN Reason: Cough Last Admin: 10/02/16 14:07 Dose: 200 mg Cinacalcet (Sensipar) 30 mg PO DAILY [facility] Last Admin: 10/10/16 08:38 Dose: 30 mg Diphenhydramine HCl (Benadryl) 25 mg PO Q6 PRN PRN Reason: Itching / Pruritus Epoetin Tha (Procrit) 20,000 unit IV MWF [facility] Last Admin: 10/09/16 17:43 Dose: 20,000 unit Ergocalciferol (Drisdol 50,000 Intl Units Cap) 1 cap PO Q7D [facility] Stop: 11/06/16 11:16 Last Admin: 10/09/16 17:42 Dose: 1 cap Fluconazole (Diflucan) 100 mg PO DAILY [facility] Last Admin: 10/09/16 09:43 Dose: 100 mg Gabapentin (Neurontin) 300 mg PO TID [facility] Last Admin: 10/10/16 08:37 Dose: 300 mg Hydrocortisone (Anusol-Hc) 1 applic NV BID [facility] Last Admin: 10/09/16 17:41 Dose: 1 applic Hydromorphone HCl (Dilaudid) 1 mg IVP Q3H PRN PRN Reason: Pain, severe (8-10) Last Admin: 10/10/16 06:44 Dose: 1 mg Amikacin Sulfate 250 mg/ (Sodium Chloride) 101 mls @ 100.609 mls/hr IVPB MWF [facility] Last Admin: 10/09/16 09:40 Dose: 100.609 mls/hr Meropenem 500 mg/ Sodium (Chloride) 100 mls @ 100 mls/hr IVPB DAILY@0100 [facility] Last Admin: 10/10/16 00:44 Dose: 100 mls/hr Piperacillin Sod/Tazobactam (Sod 2.25 gm/ Sodium Chloride) 100 mls @ 100 mls/ hr IVPB Q12@0600,1800 [facility] Last Admin: 10/10/16 05:40 Dose: 100 mls/hr Sodium Chloride (Sodium Chloride 0.9%) 1,000 mls @ 10 mls/hr IV .Q24H [facility] Last Admin: 10/09/16 17:44 Dose: 10 mls/hr Linezolid (Zyvox 600mg/300ml D5w) 600 mg in 300 mls @ 300 mls/hr IVPB Q12@0800, 2000 [facility] Last Admin: 10/10/16 08:39 Dose: 300 mls/hr Insulin Detemir (Levemir) 34 units SC HS [facility] Last Admin: 10/09/16 23:10 Dose: 34 units Insulin Human Lispro (Humalog) 10 units SC AC [facility] Last Admin: 10/10/16 08:33 Dose: 10 unit Lidocaine (Lidoderm) 1 ea TD DAILY [facility] Last Admin: 10/10/16 08:34 Dose: 1 ea Medroxyprogesterone Acetate (Provera) 10 mg PO DAILY [facility] Last Admin: 10/10/16 08:38 Dose: 10 mg Nystatin (Mycostatin Oint) 1 applic TOP TID [facility] Last Admin: 10/10/16 08:37 Dose: 1 applic Ondansetron HCl (Zofran Inj) 4 mg IVP Q6 PRN PRN Reason: Nausea/Vomiting Last Admin: 09/19/16 10:26 Dose: 4 mg Pantoprazole Sodium (Protonix Ec Tab) 40 mg PO DAILY [facility] Last Admin: 10/10/16 08:37 Dose: 40 mg Sevelamer HCl (Renagel) 1,600 mg PO TID [facility] Last Admin: 10/10/16 08:38 Dose: 1,600 mg Topiramate (Topamax) 50 mg PO BID [facility] Last Admin: 10/10/16 08:38 Dose: 50 mg Vitamin B Complex/Vit C/Folic Acid (Nephro-Ajay) 1 tab PO DAILY [facility] Last Admin: 10/10/16 08:37 Dose: 1 tab - Labs Labs: 10/10/16 09:04 10/09/16 13:00 PT 12.0 SECONDS (9.6-11.2) H 10/07/16 06:30 INR 1.15 (0.92-1.08) H 10/07/16 06:30 APTT 32.3 SECONDS (23.3-32.5) 10/07/16 06:30 - Head Exam Head Exam: ATRAUMATIC - Respiratory Exam Respiratory Exam: NORMAL BREATHING PATTERN - GI/Abdominal Exam Additional comments: soft not distended - Neurological Exam Neurological Exam: Alert, Awake, Oriented x3 Assessment and Plan - Assessment and Plan (Free Text) Plan: Discussed with pt proposed procedure (D/C and possible EA) and goal of treatment Risks and complications of surgery and anesthesia discussed as well as possible failure risk Pt understands and agreed. will keep NPO after midnight For OR in am
--- NOTE | 2016-10-10 11:51 | CP.PCM.PN ---
Subjective - Date & Time of Evaluation Date of Evaluation: 10/10/16 Time of Evaluation: 11:44 - Subjective Subjective: Day # 8 post right BK amputation for osteomyelitis and myositis of foot/ankle. Patient is feeling better, and pain in right BK site is controlled. Still with temp to 99.1 this morning. However, all blood cultures and wound culture are negative so far. Continues on 4 iv and 1 po antibiotic. For D & c and possible endometrial ablation by Dr. Prado early tomorrow morning. Will keep npo and start iv D5/0.9nss at 50 cc/hr starting midnight tonight. DM controlled on current regimen. Will hold am insulin, but she can receive the pm Levemir unless Dr. Ambrose orders otherwise. On HD MWF. Dr. Guadarrama's note appreciated. She can be dialyzed tomorrow after surgery. Aspirin and Eliquis are on hold. Will restart as soon as Dr. Larry clears her for this. No seizure. No cough or chest pain or dyspnea. The patient is medically stable for surgery. Objective - Vital Signs/Intake and Output Vital Signs (last 24 hours): Temp Pulse Resp BP Pulse Ox 98.2 F 111 H 20 97/61 L 96 10/10/16 08:26 10/10/16 08:26 10/10/16 08:26 10/10/16 08:26 10/10/16 08:26 - Medications Medications: Current Medications Acetaminophen (Tylenol 325mg Tab) 650 mg PO Q4 PRN PRN Reason: Fever >100.4 F Last Admin: 10/02/16 16:27 Dose: 650 mg Acetaminophen (Tylenol 325mg Tab) 650 mg PO Q4 PRN PRN Reason: Pain, moderate (4-7) Last Admin: 09/16/16 22:34 Dose: 650 mg Albuterol Sulfate (Albuterol 0.083% Inhal Barbie (2.5 Mg/3 Ml) Ud) 2.5 mg INH RQ4 PRN PRN Reason: Shortness of Breath Albuterol/Ipratropium (Duoneb 3 Mg/0.5 Mg (3 Ml) Ud) 3 ml INH RQ4 PRN PRN Reason: Shortness of Breath Apixaban (Eliquis) 5 mg PO BID [facility] PRN Reason: Protocol Aspirin (Ecotrin) 81 mg PO DAILY [facility] Last Admin: 10/06/16 09:06 Dose: 81 mg Atorvastatin Calcium (Lipitor) 40 mg PO DAILY [facility] Last Admin: 10/10/16 08:36 Dose: 40 mg Benzonatate (Tessalon Perles) 200 mg PO TID PRN PRN Reason: Cough Last Admin: 10/02/16 14:07 Dose: 200 mg Cinacalcet (Sensipar) 30 mg PO DAILY [facility] Last Admin: 10/10/16 08:38 Dose: 30 mg Diphenhydramine HCl (Benadryl) 25 mg PO Q6 PRN PRN Reason: Itching / Pruritus Epoetin Tha (Procrit) [facility] Last Admin: 10/09/16 17:43 Dose: 20,000 unit Ergocalciferol (Drisdol 50,000 Intl Units Cap) 1 cap PO Q7D [facility] Stop: 11/06/16 11:16 Last Admin: 10/09/16 17:42 Dose: 1 cap Fluconazole (Diflucan) 100 mg PO DAILY [facility] Last Admin: 10/09/16 09:43 Dose: 100 mg Gabapentin (Neurontin) 300 mg PO TID [facility] Last Admin: 10/10/16 08:37 Dose: 300 mg Hydrocortisone (Anusol-Hc) 1 applic [place] BID [facility] Last Admin: 10/09/16 17:41 Dose: 1 applic Hydromorphone HCl (Dilaudid) 1 mg IVP Q3H PRN PRN Reason: Pain, severe (8-10) Last Admin: 10/10/16 06:44 Dose: 1 mg Amikacin Sulfate 250 mg/ (Sodium Chloride) 101 mls @ 100.609 mls/hr IVPB MWF [facility] Last Admin: 10/09/16 09:40 Dose: 100.609 mls/hr Meropenem 500 mg/ Sodium (Chloride) 100 mls @ 100 mls/hr IVPB DAILY@0100 [facility] Last Admin: 10/10/16 00:44 Dose: 100 mls/hr Piperacillin Sod/Tazobactam (Sod 2.25 gm/ Sodium Chloride) 100 mls @ 100 mls/ hr IVPB Q12@0600,1800 [facility] Last Admin: 10/10/16 05:40 Dose: 100 mls/hr Sodium Chloride (Sodium Chloride 0.9%) 1,000 mls @ 10 mls/hr IV .Q24H [facility] Last Admin: 10/09/16 17:44 Dose: 10 mls/hr Linezolid (Zyvox 600mg/300ml D5w) 600 mg in 300 mls @ 300 mls/hr IVPB Q12@0800, 2000 [facility] Last Admin: 10/10/16 08:39 Dose: 300 mls/hr Insulin Detemir (Levemir) 34 units SC HS [facility] Last Admin: 10/09/16 23:10 Dose: 34 units Insulin Human Lispro (Humalog) 10 units SC AC [facility] Last Admin: 10/10/16 08:33 Dose: 10 unit Lidocaine (Lidoderm) 1 ea TD DAILY [facility] Last Admin: 10/10/16 08:34 Dose: 1 ea Medroxyprogesterone Acetate (Provera) 10 mg PO DAILY [facility] Last Admin: 10/10/16 08:38 Dose: 10 mg Nystatin (Mycostatin Oint) 1 applic TOP TID [facility] Last Admin: 10/10/16 08:37 Dose: 1 applic Ondansetron HCl (Zofran Inj) 4 mg IVP Q6 PRN PRN Reason: Nausea/Vomiting Last Admin: 09/19/16 10:26 Dose: 4 mg Pantoprazole Sodium (Protonix Ec Tab) 40 mg PO DAILY [facility] Last Admin: 10/10/16 08:37 Dose: 40 mg Sevelamer HCl (Renagel) 1,600 mg PO TID [facility] Last Admin: 10/10/16 08:38 Dose: 1,600 mg Topiramate (Topamax) 50 mg PO BID [facility] Last Admin: 10/10/16 08:38 Dose: 50 mg Vitamin B Complex/Vit C/Folic Acid (Nephro-Ajay) 1 tab PO DAILY [facility] Last Admin: 10/10/16 08:37 Dose: 1 tab - Labs Labs: 10/10/16 09:04 10/09/16 13:00 PT 12.0 SECONDS (9.6-11.2) H 10/07/16 06:30 INR 1.15 (0.92-1.08) H 10/07/16 06:30 APTT 32.3 SECONDS (23.3-32.5) 10/07/16 06:30 - Constitutional Appears: No Acute Distress - Head Exam Head Exam: NORMAL INSPECTION - Eye Exam Eye Exam: Normal appearance - ENT Exam ENT Exam: Mucous Membranes Moist - Neck Exam Neck Exam: Normal Inspection - Respiratory Exam Respiratory Exam: Clear to Ausculation Bilateral, NORMAL BREATHING PATTERN - Cardiovascular Exam Cardiovascular Exam: REGULAR RHYTHM, +S1, +S2 - GI/Abdominal Exam GI & Abdominal Exam: Soft - Extremities Exam Additional comments: Dressing right residual BK limb dry and intact and knee immobilizer in place. - Back Exam Back Exam: NORMAL INSPECTION - Neurological Exam Neurological Exam: Alert, Awake, CN II-XII Intact, Oriented x3 - Psychiatric Exam Psychiatric exam: Anxious, Depressed - Skin Additional comments: Dressing on buttock intact. Assessment and Plan (1) Status post below knee amputation of right lower extremity Assessment & Plan: SEE SUBJECTIVE Status: Acute (2) Osteomyelitis of ankle or foot Assessment & Plan: SEE SUBJECTIVE Status: Acute (3) ESRD (end stage renal disease) on dialysis Assessment & Plan: SEE SUBJECTIVE Status: Chronic (4) DM type 2 (diabetes mellitus, type 2) Assessment & Plan: SEE SUBJECTIVE Status: Chronic (5) Coagulopathy Assessment & Plan: SEE SUBJECTIVE Status: Chronic (6) Anemia, blood loss Assessment & Plan: SEE SUBJECTIVE Status: Acute (7) Peripheral arterial occlusive disease Status: Chronic (8) Menorrhagia Assessment & Plan: SEE SUBJECTIVE Status: Acute - Assessment and Plan (Free Text) Assessment: PATIENT IS MEDICALLY STABLE FOR ANESTHESIA AND SURGERY.
[2016-10-10] MEDS: Hydrocortisone 2.5% (Rectal) CREAM PR SCH ×2 (13:24→17:11)
--- NOTE | 2016-10-10 13:55 | CP.PCM.PN ---
Subjective - Date & Time of Evaluation Date of Evaluation: 10/10/16 Time of Evaluation: 13:40 - Subjective Subjective: Patient has no acute complaints. She had an uneventful night. Right BKA stump pain is controlled on current regiment. Objective - Vital Signs/Intake and Output Vital Signs (last 24 hours): Temp Pulse Resp BP Pulse Ox 98.2 F 111 H 20 97/61 L 96 10/10/16 08:26 10/10/16 08:26 10/10/16 08:26 10/10/16 08:26 10/10/16 08:26 - Medications Medications: Current Medications Acetaminophen (Tylenol 325mg Tab) 650 mg PO Q4 PRN PRN Reason: Fever >100.4 F Last Admin: 10/02/16 16:27 Dose: 650 mg Acetaminophen (Tylenol 325mg Tab) 650 mg PO Q4 PRN PRN Reason: Pain, moderate (4-7) Last Admin: 09/16/16 22:34 Dose: 650 mg Albuterol Sulfate (Albuterol 0.083% Inhal Barbie (2.5 Mg/3 Ml) Ud) 2.5 mg INH RQ4 PRN PRN Reason: Shortness of Breath Albuterol/Ipratropium (Duoneb 3 Mg/0.5 Mg (3 Ml) Ud) 3 ml INH RQ4 PRN PRN Reason: Shortness of Breath Apixaban (Eliquis) 5 mg PO BID [facility] PRN Reason: Protocol Aspirin (Ecotrin) 81 mg PO DAILY [facility] Last Admin: 10/06/16 09:06 Dose: 81 mg Atorvastatin Calcium (Lipitor) 40 mg PO DAILY [facility] Last Admin: 10/10/16 08:36 Dose: 40 mg Benzonatate (Tessalon Perles) 200 mg PO TID PRN PRN Reason: Cough Last Admin: 10/02/16 14:07 Dose: 200 mg Cinacalcet (Sensipar) 30 mg PO DAILY [facility] Last Admin: 10/10/16 08:38 Dose: 30 mg Diphenhydramine HCl (Benadryl) 25 mg PO Q6 PRN PRN Reason: Itching / Pruritus Epoetin Tha (Procrit) 20,000 unit IV MWF [facility] Last Admin: 10/09/16 17:43 Dose: 20,000 unit Ergocalciferol (Drisdol 50,000 Intl Units Cap) 1 cap PO Q7D [facility] Stop: 11/06/16 11:16 Last Admin: 10/09/16 17:42 Dose: 1 cap Fluconazole (Diflucan) 100 mg PO DAILY [facility] Last Admin: 10/10/16 13:23 Dose: 100 mg Gabapentin (Neurontin) 300 mg PO TID [facility] Last Admin: 10/10/16 13:25 Dose: 300 mg Hydrocortisone (Anusol-Hc) 1 applic [place] BID [facility] Last Admin: 10/10/16 13:24 Dose: 1 applic Hydromorphone HCl (Dilaudid) 1 mg IVP Q3H PRN PRN Reason: Pain, severe (8-10) Last Admin: 10/10/16 13:23 Dose: 1 mg Amikacin Sulfate 250 mg/ (Sodium Chloride) 101 mls @ 100.609 mls/hr IVPB MWF [facility] Last Admin: 10/09/16 09:40 Dose: 100.609 mls/hr Meropenem 500 mg/ Sodium (Chloride) 100 mls @ 100 mls/hr IVPB DAILY@0100 [facility] Last Admin: 10/10/16 00:44 Dose: 100 mls/hr Piperacillin Sod/Tazobactam (Sod 2.25 gm/ Sodium Chloride) 100 mls @ 100 mls/ hr IVPB Q12@0600,1800 [facility] Last Admin: 10/10/16 05:40 Dose: 100 mls/hr Sodium Chloride (Sodium Chloride 0.9%) 1,000 mls @ 10 mls/hr IV .Q24H [facility] Last Admin: 10/09/16 17:44 Dose: 10 mls/hr Linezolid (Zyvox 600mg/300ml D5w) 600 mg in 300 mls @ 300 mls/hr IVPB Q12@0800, 2000 [facility] Last Admin: 10/10/16 08:39 Dose: 300 mls/hr Insulin Detemir (Levemir) 34 units SC HS [facility] Last Admin: 10/09/16 23:10 Dose: 34 units Insulin Human Lispro (Humalog) 10 units SC AC [facility] Last Admin: 10/10/16 13:24 Dose: 10 unit Lidocaine (Lidoderm) 1 ea TD DAILY [facility] Last Admin: 10/10/16 08:34 Dose: 1 ea Medroxyprogesterone Acetate (Provera) 10 mg PO DAILY [facility] Last Admin: 10/10/16 08:38 Dose: 10 mg Nystatin (Mycostatin Oint) 1 applic TOP TID [facility] Last Admin: 10/10/16 13:25 Dose: 1 applic Ondansetron HCl (Zofran Inj) 4 mg IVP Q6 PRN PRN Reason: Nausea/Vomiting Last Admin: 09/19/16 10:26 Dose: 4 mg Pantoprazole Sodium (Protonix Ec Tab) 40 mg PO DAILY [facility] Last Admin: 10/10/16 08:37 Dose: 40 mg Sevelamer HCl (Renagel) 1,600 mg PO TID [facility] Last Admin: 10/10/16 13:25 Dose: 1,600 mg Topiramate (Topamax) 50 mg PO BID [facility] Last Admin: 10/10/16 08:38 Dose: 50 mg Vitamin B Complex/Vit C/Folic Acid (Nephro-Ajay) 1 tab PO DAILY [facility] Last Admin: 10/10/16 08:37 Dose: 1 tab - Labs Labs: 10/10/16 09:04 10/09/16 13:00 PT 12.0 SECONDS (9.6-11.2) H 10/07/16 06:30 INR 1.15 (0.92-1.08) H 10/07/16 06:30 APTT 32.3 SECONDS (23.3-32.5) 10/07/16 06:30 - Constitutional Appears: Well, No Acute Distress - Head Exam Head Exam: NORMAL INSPECTION - Eye Exam Eye Exam: Normal appearance, PERRL - ENT Exam ENT Exam: Normal Exam - Neck Exam Neck Exam: Normal Inspection - Respiratory Exam Respiratory Exam: NORMAL BREATHING PATTERN - Cardiovascular Exam Cardiovascular Exam: REGULAR RHYTHM, RRR - GI/Abdominal Exam GI & Abdominal Exam: Soft - Extremities Exam Extremities Exam: Full ROM, Joint Swelling, Normal Inspection, Pedal Edema - Neurological Exam Neurological Exam: Awake, Oriented x3 - Additional Findings Additional findings: Right BKA stump was examined. Dressing changed. Medial aspect of the wound examined and packing removed.There is still serosanquinous discharge which is failry scant. There is no krystal purulence or tissue necrosis. There is no erythema or cellulitis associated with the wound. The wound was packed and dry dressing was re-applied. Assessment and Plan - Assessment and Plan (Free Text) Assessment: Patient is recovering fairly well overall. Right BKA stump appears to be healing except for one area of the surgical incision line where the wound had to opened superficially and is attempted to heal by secondary intention. The wound is not grossly infected. Cultures were sent -- will follow. WBC count has normalized although patient had a low grade fever last 24 hours. Patient has been on broad spectrum antibiotics. Plan: Continue current care. Daily wound packing and normal saline irrigation at the bedside. Follow up on wound cultures.
--- NOTE | 2016-10-10 20:56 | PN ---
DATE: 10/10/2016 ROOM: 663 SUBJECTIVE: This is a 46-year-old female with recent uncontrolled type 2 insulin-requiring diabetes, now being followed closely for metabolic management. She underwent a recent right [id number]-dbb-[id number] am putation for severe osteomyelitis and underlying severe peripheral arterial vasculopathy and is now b eing followed closely for metabolic management. Her latest chemistry showed a BUN of 32, sodium 141, potassium 4.0, chloride 101, CO2 26, glucose 82, creatinine 6.1. So at this time, we will lower and modify her basal and bolus insulin regimen as ordered with Levemir to be given as 30 units subQ at b edtime daily to start tonight. We will also continue the low-dose correction scale using Humalog ins ulin as ordered. Moreover, we will also lower the prandial insulin with Humalog to be lowered down t o 8 units subQ t.i.d. before meals as given. We will titrate incrementally as indicated to optimize metabolic control. We will obtain serial chemistries and supplement accordingly as needed. We will follow. Irene Ambrose MD cc: [id number] TT: 10/10/2016 20:55:44 Confirmation # [id number] Dictation # [id number]
[2016-10-10] MEDS: Insulin Detemir 100 Units/ml Inj SC SCH (22:39)
--- NOTE | 2016-10-10 23:57 | CP.PCM.PN ---
Subjective - Date & Time of Evaluation Date of Evaluation: 10/10/16 Time of Evaluation: 21:00 - Subjective Subjective: No Seizures, no major new development, she feels no Phantom Syndrome and no Pain at the site of her BKA (Amputation). She is still having vaginal bleed, her insulin dose might be modified to a lesser dose pending Dr Ambrose approval. She receiving IV Antibiotics for her infection and Po Diflucan and is receiving Hemodialysis 3 days a week for her ESRD on ,W,F. VS are stable She is awake alert oriented and is able to express herself. Objective - Vital Signs/Intake and Output Vital Signs (last 24 hours): Temp Pulse Resp BP Pulse Ox 97.7 F 109 H 18 108/64 94 L 10/10/16 16:09 10/10/16 16:09 10/10/16 16:09 10/10/16 16:09 10/10/16 16:09 - Medications Medications: Current Medications Acetaminophen (Tylenol 325mg Tab) 650 mg PO Q4 PRN PRN Reason: Fever >100.4 F Last Admin: 10/02/16 16:27 Dose: 650 mg Acetaminophen (Tylenol 325mg Tab) 650 mg PO Q4 PRN PRN Reason: Pain, moderate (4-7) Last Admin: 09/16/16 22:34 Dose: 650 mg Albuterol Sulfate (Albuterol 0.083% Inhal Barbie (2.5 Mg/3 Ml) Ud) 2.5 mg INH RQ4 PRN PRN Reason: Shortness of Breath Albuterol/Ipratropium (Duoneb 3 Mg/0.5 Mg (3 Ml) Ud) 3 ml INH RQ4 PRN PRN Reason: Shortness of Breath Apixaban (Eliquis) 5 mg PO BID [facility] PRN Reason: Protocol Aspirin (Ecotrin) 81 mg PO DAILY [facility] Last Admin: 10/06/16 09:06 Dose: 81 mg Atorvastatin Calcium (Lipitor) 40 mg PO DAILY [facility] Last Admin: 10/10/16 08:36 Dose: 40 mg Benzonatate (Tessalon Perles) 200 mg PO TID PRN PRN Reason: Cough Last Admin: 10/02/16 14:07 Dose: 200 mg Cinacalcet (Sensipar) 30 mg PO DAILY [facility] Last Admin: 10/10/16 08:38 Dose: 30 mg Diphenhydramine HCl (Benadryl) 25 mg PO Q6 PRN PRN Reason: Itching / Pruritus Epoetin Tha (Procrit) 20,000 unit IV [facility] [place] Last Admin: 10/09/16 17:43 Dose: 20,000 unit Ergocalciferol (Drisdol 50,000 Intl Units Cap) 1 cap PO Q7D [facility] Stop: 11/06/16 11:16 Last Admin: 10/09/16 17:42 Dose: 1 cap Fluconazole (Diflucan) 100 mg PO DAILY [facility] Last Admin: 10/10/16 13:23 Dose: 100 mg Gabapentin (Neurontin) 300 mg PO TID [facility] Last Admin: 10/10/16 17:13 Dose: 300 mg Hydrocortisone (Anusol-Hc) 1 applic [place] BID [facility] Last Admin: 10/10/16 17:11 Dose: 1 applic Hydromorphone HCl (Dilaudid) 1 mg IVP Q3H PRN PRN Reason: Pain, severe (8-10) Last Admin: 10/10/16 18:35 Dose: 1 mg Amikacin Sulfate 250 mg/ (Sodium Chloride) 101 mls @ 100.609 mls/hr IVPB [facility] [place] Last Admin: 10/09/16 09:40 Dose: 100.609 mls/hr Meropenem 500 mg/ Sodium (Chloride) 100 mls @ 100 mls/hr IVPB DAILY@0100 [facility] Last Admin: 10/10/16 00:44 Dose: 100 mls/hr Piperacillin Sod/Tazobactam (Sod 2.25 gm/ Sodium Chloride) 100 mls @ 100 mls/ hr IVPB Q12@0600,1800 [facility] Last Admin: 10/10/16 17:20 Dose: 100 mls/hr Sodium Chloride (Sodium Chloride 0.9%) 1,000 mls @ 10 mls/hr IV .Q24H [facility] Last Admin: 10/09/16 17:44 Dose: 10 mls/hr Linezolid (Zyvox 600mg/300ml D5w) 600 mg in 300 mls @ 300 mls/hr IVPB Q12@0800, 2000 [facility] Last Admin: 10/10/16 20:54 Dose: 300 mls/hr Dextrose/Sodium Chloride (Dextrose 5%-0.9% Ns 500 Ml) 500 mls @ 50 mls/hr IV .Q10H [facility] Stop: 10/11/16 18:25 Insulin Detemir (Levemir) 30 units SC HS [facility] Last Admin: 10/10/16 22:39 Dose: 30 units Insulin Human Lispro (Humalog) 8 units SC AC [facility] Lidocaine (Lidoderm) 1 ea TD DAILY [facility] Last Admin: 10/10/16 08:34 Dose: 1 ea Medroxyprogesterone Acetate (Provera) 10 mg PO DAILY [facility] Last Admin: 10/10/16 08:38 Dose: 10 mg Nystatin (Mycostatin Oint) 1 applic TOP TID [facility] Last Admin: 10/10/16 17:13 Dose: 1 applic Ondansetron HCl (Zofran Inj) 4 mg IVP Q6 PRN PRN Reason: Nausea/Vomiting Last Admin: 09/19/16 10:26 Dose: 4 mg Pantoprazole Sodium (Protonix Ec Tab) 40 mg PO DAILY [facility] Last Admin: 10/10/16 08:37 Dose: 40 mg Sevelamer HCl (Renagel) 1,600 mg PO TID [facility] Last Admin: 10/10/16 17:13 Dose: 1,600 mg Topiramate (Topamax) 50 mg PO BID [facility] Last Admin: 10/10/16 17:14 Dose: 50 mg Vitamin B Complex/Vit C/Folic Acid (Nephro-Ajay) 1 tab PO DAILY [facility] Last Admin: 10/10/16 08:37 Dose: 1 tab - Labs Labs: 10/10/16 09:04 10/09/16 13:00 PT 12.0 SECONDS (9.6-11.2) H 10/07/16 06:30 INR 1.15 (0.92-1.08) H 10/07/16 06:30 APTT 32.3 SECONDS (23.3-32.5) 10/07/16 06:30 Assessment and Plan (1) Diabetes Status: Chronic (2) ESRD (end stage renal disease) Status: Chronic (3) Cellulitis of leg Status: Chronic (4) Hyperlipidemia Status: Chronic (5) Back pain Status: Acute (6) Bacteremia due to Gram-negative bacteria Status: Acute (7) Diabetes mellitus type 2 with peripheral artery disease Status: Acute (8) PVD (peripheral vascular disease) Status: Acute (9) Osteomyelitis of right foot Status: Acute (10) Fungal infection right foot Status: Acute
[2016-10-11] MEDS: Meropenem 500 MG in Sodium Chloride 0.9% 100 ML IVPB SCH (00:23)
[2016-10-11] MEDS: HYDROmorphone 0.5 mg/0.5 ml ISec IVP PRN ×5 (03:56→20:59)
[2016-10-11 07:24] LABS: BASO % 0.2 % (0.0-2.0); EOS # 0.5 K/uL (0.0-0.7); EOS % 5.5 % (0.0-4.0); HEMATOCRIT 28.4 % (34.0-47.0); LYMPH # 1.2 K/uL (1.0-4.3); LYMPH % 12.5 % (20.0-40.0); MEAN CELL VOLUME 90.3 fl (81.0-99.0); MEAN CORPUSCULAR HEMOGLOBIN 29.2 pg (27.0-31.0); MEAN CORPUSCULAR HGB CONC 32.3 g/dL (33.0-37.0); MEAN PLATELET VOLUME 8.5 fl (7.2-11.7); MONO # 0.9 K/uL (0.0-0.8); MONO % 8.8 % (0.0-10.0); NEUT # 7.1 K/uL (1.8-7.0); NRBC % 0.1 % (0.0-0.0); RED CELL DISTRIBUTION WIDTH 17.9 % (11.5-14.5); WHITE BLOOD COUNT 9.8 K/uL (4.8-10.8)
[2016-10-11] MEDS ORDERED: Neostigmine Methylsulfate 3mg/3ml Syringe IV ONE (07:38)
[2016-10-11] MEDS ORDERED: Succinylcholine 200 mg/10 ml Inj IV ONE (07:38)
[2016-10-11] MEDS ORDERED: Propofol 10 mg/ml Inj (20 ML) ONE (07:38)
[2016-10-11] MEDS ORDERED: Rocuronium 10 mg/ml (5 ml) ONE (07:38)
[2016-10-11] MEDS ORDERED: Midazolam 2 MG/2 ML VIAL ONE (07:38)
[2016-10-11 07:44] LABS: ALB/GLOB RATIO 0.7 (1.0-2.1); BILIRUBIN,TOTAL 0.5 mg/dl (0.2-1.3); CALCIUM 9.1 mg/dL (8.4-10.2); POTASSIUM 4.2 MMOL/L (3.6-5.0); TOTAL PROTEIN 7.9 G/DL (6.3-8.2)
[2016-10-11] MEDS: Insulin Lispro (humaLOG) 100 Units/ml Inj SC SCH ×3 (08:20→17:47)
[2016-10-11] MEDS: Linezolid 600 mg in D5W 300 ml 600 MG/300 ML BAG IVPB SCH ×2 (08:21→20:46)
[2016-10-11] MEDS ORDERED: Oxycodone/Acetaminophen 5/325 mg Tab PO PRN (08:53)
[2016-10-11] MEDS ORDERED: HYDROmorphone 0.5 mg/0.5 ml ISec ONE (08:55)
[2016-10-11] MEDS ORDERED: HYDROmorphone 0.5 mg/0.5 ml ISec IVP PRN (09:02)
[2016-10-11] MEDS ORDERED: Sodium Chloride 0.9% 500 ML IV ONE (09:03)
[2016-10-11] MEDS: Hydrocortisone 2.5% (Rectal) CREAM PR SCH ×2 (09:08→17:49)
[2016-10-11] MEDS: Nystatin Ointment TOP SCH ×3 (09:08→17:45)
[2016-10-11] MEDS: Pantoprazole 40 mg EC Tab PO SCH (09:08)
[2016-10-11] MEDS: Multivitamin Vitamin B Complex (Nephro-Vite) Tab PO SCH (09:08)
[2016-10-11] MEDS: Lidocaine 5% Patch TD SCH (09:09)
--- NOTE | 2016-10-11 10:07 | CP.PCM.PN ---
Subjective - Date & Time of Evaluation Date of Evaluation: 10/11/16 Time of Evaluation: 10:02 - Subjective Subjective: Pt went for a D&C today. I spoke to Sophie after the procedure. He claims it went well. He was able to do ablation of tne endometrium. He feels that the procedure works in 90-95& of patients. He also said that there will be some sanguinous discharge for a few days He asked to hold the eliquis until tomorrow am. Objective - Vital Signs/Intake and Output Vital Signs (last 24 hours): Temp Pulse Resp BP Pulse Ox 97.0 F L 110 H 18 158/73 H 99 10/11/16 09:00 10/11/16 09:15 10/11/16 09:15 10/11/16 09:15 10/11/16 09:15 Intake and Output: 10/11/16 10/11/16 06:59 18:59 Intake Total 100 Balance 100 - Medications Medications: Current Medications Acetaminophen (Tylenol 325mg Tab) 650 mg PO Q4 PRN PRN Reason: Fever >100.4 F Last Admin: 10/02/16 16:27 Dose: 650 mg Acetaminophen (Tylenol 325mg Tab) 650 mg PO Q4 PRN PRN Reason: Pain, moderate (4-7) Last Admin: 09/16/16 22:34 Dose: 650 mg Albuterol Sulfate (Albuterol 0.083% Inhal Barbie (2.5 Mg/3 Ml) Ud) 2.5 mg INH RQ4 PRN PRN Reason: Shortness of Breath Albuterol/Ipratropium (Duoneb 3 Mg/0.5 Mg (3 Ml) Ud) 3 ml INH RQ4 PRN PRN Reason: Shortness of Breath Apixaban (Eliquis) 5 mg PO BID [facility] PRN Reason: Protocol Aspirin (Ecotrin) 81 mg PO DAILY [facility] Last Admin: 10/06/16 09:06 Dose: 81 mg Atorvastatin Calcium (Lipitor) 40 mg PO DAILY [facility] Last Admin: 10/11/16 09:10 Dose: Not Given Benzonatate (Tessalon Perles) 200 mg PO TID PRN PRN Reason: Cough Last Admin: 10/02/16 14:07 Dose: 200 mg Cinacalcet (Sensipar) 30 mg PO DAILY [facility] Last Admin: 10/11/16 09:09 Dose: Not Given Diphenhydramine HCl (Benadryl) 25 mg PO Q6 PRN PRN Reason: Itching / Pruritus Epoetin Tha (Procrit) 20,000 unit IV [facility] Last Admin: 10/09/16 17:43 Dose: 20,000 unit Ergocalciferol (Drisdol 50,000 Intl Units Cap) 1 cap PO Q7D [facility] Stop: 11/06/16 11:16 Last Admin: 10/09/16 17:42 Dose: 1 cap Fluconazole (Diflucan) 100 mg PO DAILY [facility] Last Admin: 10/11/16 09:07 Dose: Not Given Gabapentin (Neurontin) 300 mg PO TID [facility] Last Admin: 10/11/16 09:08 Dose: Not Given Hydrocortisone (Anusol-Hc) 1 applic [place] BID [facility] Last Admin: 10/11/16 09:08 Dose: Not Given Hydromorphone HCl (Dilaudid) 1 mg IVP Q3H PRN PRN Reason: Pain, severe (8-10) Last Admin: 10/11/16 04:44 Dose: 1 mg Hydromorphone HCl (Dilaudid) 0.5 mg IVP Q5M PRN PRN Reason: Pain, moderate (4-7) Stop: 10/11/16 11:05 Amikacin Sulfate 250 mg/ (Sodium Chloride) 101 mls @ 100.609 mls/hr IVPB [facility] Last Admin: 10/11/16 09:07 Dose: Not Given Meropenem 500 mg/ Sodium (Chloride) 100 mls @ 100 mls/hr IVPB DAILY@0100 [facility] Last Admin: 10/11/16 00:23 Dose: 100 mls/hr Piperacillin Sod/Tazobactam (Sod 2.25 gm/ Sodium Chloride) 100 mls @ 100 mls/ hr IVPB Q12@0600,1800 [facility] Last Admin: 10/11/16 05:36 Dose: 100 mls/hr Sodium Chloride (Sodium Chloride 0.9%) 1,000 mls @ 10 mls/hr IV .Q24H [facility] Last Admin: 10/09/16 17:44 Dose: 10 mls/hr Linezolid (Zyvox 600mg/300ml D5w) 600 mg in 300 mls @ 300 mls/hr IVPB Q12@0800, 2000 [facility] Last Admin: 10/11/16 08:21 Dose: Not Given Dextrose/Sodium Chloride (Dextrose 5%-0.9% Ns 500 Ml) 500 mls @ 50 mls/hr IV .Q10H [facility] Stop: 10/11/16 18:25 Last Admin: 10/11/16 00:23 Dose: 50 mls/hr Insulin Detemir (Levemir) 30 units SC HS [facility] Last Admin: 10/10/16 22:39 Dose: 30 units Insulin Human Lispro (Humalog) 8 units SC AC [facility] Last Admin: 10/11/16 08:20 Dose: Not Given Lidocaine (Lidoderm) 1 ea TD DAILY [facility] Last Admin: 10/11/16 09:09 Dose: Not Given Nystatin (Mycostatin Oint) 1 applic TOP TID [facility] Last Admin: 10/11/16 09:08 Dose: Not Given Ondansetron HCl (Zofran Inj) 4 mg IVP Q6 PRN PRN Reason: Nausea/Vomiting Last Admin: 09/19/16 10:26 Dose: 4 mg Oxycodone/Acetaminophen (Percocet 5/325 Mg Tab) 1 tab PO Q4 PRN PRN Reason: Pain, moderate (4-7) Stop: 10/14/16 08:54 Pantoprazole Sodium (Protonix Ec Tab) 40 mg PO DAILY [facility] Last Admin: 10/11/16 09:08 Dose: Not Given Sevelamer HCl (Renagel) 1,600 mg PO TID [facility] Last Admin: 10/11/16 09:09 Dose: Not Given Topiramate (Topamax) 50 mg PO BID [facility] Last Admin: 10/11/16 09:09 Dose: Not Given Vitamin B Complex/Vit C/Folic Acid (Nephro-Ajay) 1 tab PO DAILY [facility] Last Admin: 10/11/16 09:08 Dose: Not Given - Labs Labs: 10/11/16 07:00 10/11/16 07:00 PT 12.0 SECONDS (9.6-11.2) H 10/07/16 06:30 INR 1.15 (0.92-1.08) H 10/07/16 06:30 APTT 32.3 SECONDS (23.3-32.5) 10/07/16 06:30
--- NOTE | 2016-10-11 12:00 | CP.PCM.PN ---
Subjective - Date & Time of Evaluation Date of Evaluation: 10/11/16 Time of Evaluation: 12:03 - Subjective Subjective: Patient about to start hemodialysis now I spoke to the dialysis nurse Order in place Patient came from D&C Physical exam Patient and good mood vital signs stable Chest clear Heart no rubs Abdomen soft Extremity no edema Impression and plan Continue hemodialysis as plan and ordered Patient tolerating very well Continue monitor blood work Objective - Vital Signs/Intake and Output Vital Signs (last 24 hours): Temp Pulse Resp BP Pulse Ox 97.7 F 111 H 20 171/80 H 95 10/11/16 10:17 10/11/16 10:17 10/11/16 10:17 10/11/16 10:17 10/11/16 10:17 Intake and Output: 10/11/16 10/11/16 06:59 18:59 Intake Total 150 Balance 150 - Medications Medications: Current Medications Acetaminophen (Tylenol 325mg Tab) 650 mg PO Q4 PRN PRN Reason: Fever >100.4 F Last Admin: 10/02/16 16:27 Dose: 650 mg Acetaminophen (Tylenol 325mg Tab) 650 mg PO Q4 PRN PRN Reason: Pain, moderate (4-7) Last Admin: 09/16/16 22:34 Dose: 650 mg Albuterol Sulfate (Albuterol 0.083% Inhal Barbie (2.5 Mg/3 Ml) Ud) 2.5 mg INH RQ4 PRN PRN Reason: Shortness of Breath Albuterol/Ipratropium (Duoneb 3 Mg/0.5 Mg (3 Ml) Ud) 3 ml INH RQ4 PRN PRN Reason: Shortness of Breath Apixaban (Eliquis) 5 mg PO BID [facility] PRN Reason: Protocol Aspirin (Ecotrin) 81 mg PO DAILY [facility] Last Admin: 10/06/16 09:06 Dose: 81 mg Atorvastatin Calcium (Lipitor) 40 mg PO DAILY [facility] Last Admin: 10/11/16 09:10 Dose: Not Given Benzonatate (Tessalon Perles) 200 mg PO TID PRN PRN Reason: Cough Last Admin: 10/02/16 14:07 Dose: 200 mg Cinacalcet (Sensipar) 30 mg PO DAILY [facility] Last Admin: 10/11/16 09:09 Dose: Not Given Diphenhydramine HCl (Benadryl) 25 mg PO Q6 PRN PRN Reason: Itching / Pruritus Epoetin Tha (Procrit) 20,000 unit IV MWF [facility] Last Admin: 10/09/16 17:43 Dose: 20,000 unit Ergocalciferol (Drisdol 50,000 Intl Units Cap) 1 cap PO Q7D [facility] Stop: 11/06/16 11:16 Last Admin: 10/09/16 17:42 Dose: 1 cap Fluconazole (Diflucan) 100 mg PO DAILY [facility] Last Admin: 10/11/16 09:07 Dose: Not Given Gabapentin (Neurontin) 300 mg PO TID [facility] Last Admin: 10/11/16 09:08 Dose: Not Given Hydrocortisone (Anusol-Hc) 1 applic [place] BID [facility] Last Admin: 10/11/16 09:08 Dose: Not Given Hydromorphone HCl (Dilaudid) 1 mg IVP Q3H PRN PRN Reason: Pain, severe (8-10) Last Admin: 10/11/16 10:22 Dose: 1 mg Amikacin Sulfate 250 mg/ (Sodium Chloride) 101 mls @ 100.609 mls/hr IVPB [facility] Last Admin: 10/11/16 09:07 Dose: Not Given Meropenem 500 mg/ Sodium (Chloride) 100 mls @ 100 mls/hr IVPB DAILY@0100 [facility] Last Admin: 10/11/16 00:23 Dose: 100 mls/hr Piperacillin Sod/Tazobactam (Sod 2.25 gm/ Sodium Chloride) 100 mls @ 100 mls/ hr IVPB Q12@0600,1800 [facility] Last Admin: 10/11/16 05:36 Dose: 100 mls/hr Sodium Chloride (Sodium Chloride 0.9%) 1,000 mls @ 10 mls/hr IV .Q24H [facility] Last Admin: 10/09/16 17:44 Dose: 10 mls/hr Linezolid (Zyvox 600mg/300ml D5w) 600 mg in 300 mls @ 300 mls/hr IVPB Q12@0800, 2000 [facility] Last Admin: 10/11/16 08:21 Dose: Not Given Dextrose/Sodium Chloride (Dextrose 5%-0.9% Ns 500 Ml) 500 mls @ 50 mls/hr IV .Q10H [facility] Stop: 10/11/16 18:25 Last Admin: 10/11/16 10:00 Dose: Not Given Insulin Detemir (Levemir) 30 units SC HS [facility] Last Admin: 10/10/16 22:39 Dose: 30 units Insulin Human Lispro (Humalog) 8 units SC AC [facility] Last Admin: 10/11/16 08:20 Dose: Not Given Lidocaine (Lidoderm) 1 ea TD DAILY [facility] Last Admin: 10/11/16 09:09 Dose: Not Given Nystatin (Mycostatin Oint) 1 applic TOP TID [facility] Last Admin: 10/11/16 09:08 Dose: Not Given Ondansetron HCl (Zofran Inj) 4 mg IVP Q6 PRN PRN Reason: Nausea/Vomiting Last Admin: 09/19/16 10:26 Dose: 4 mg Oxycodone/Acetaminophen (Percocet 5/325 Mg Tab) 1 tab PO Q4 PRN PRN Reason: Pain, moderate (4-7) Stop: 10/14/16 08:54 Pantoprazole Sodium (Protonix Ec Tab) 40 mg PO DAILY [facility] Last Admin: 10/11/16 09:08 Dose: Not Given Sevelamer HCl (Renagel) 1,600 mg PO TID [facility] Last Admin: 10/11/16 09:09 Dose: Not Given Topiramate (Topamax) 50 mg PO BID [facility] Last Admin: 10/11/16 09:09 Dose: Not Given Vitamin B Complex/Vit C/Folic Acid (Nephro-Ajay) 1 tab PO DAILY [facility] Last Admin: 10/11/16 09:08 Dose: Not Given - Labs Labs: 10/11/16 07:00 10/11/16 07:00 PT 12.0 SECONDS (9.6-11.2) H 10/07/16 06:30 INR 1.15 (0.92-1.08) H 10/07/16 06:30 APTT 32.3 SECONDS (23.3-32.5) 10/07/16 06:30 Assessment and Plan (1) ESRD (end stage renal disease) Status: Chronic (2) Cellulitis of leg Status: Chronic
[2016-10-11] MEDS: Epoetin Alfa 20000 UNIT/ML Inj IV SCH (13:22)
--- NOTE | 2016-10-11 14:27 | CP.PCM.PN ---
Subjective - Date & Time of Evaluation Date of Evaluation: 10/11/16 Time of Evaluation: 14:25 - Subjective Subjective: Patient had D & C and endometrial ablation by Dr. Larry. As per my conversation with him and Dr Evita Shepard's note there will be some bleeding and vaginal liquid discharge, so we are holding Eliquis and aspirin until tomorrow. She is undergoing hemodialysis at this time with stable vital signs but some tachycardia. No chest pain or dyspnea. Dr. Mccormack's note appreciated. R BK residual limb wound care in progres by Richard Nails RN (see his note). DM well controlled on current medications. All previous medications except for the Eliquis and aspirin have been resumed, and patient is back on renal diet (2 gm Na, 2 gm K). Will refine the diet tomorrow. Objective - Vital Signs/Intake and Output Vital Signs (last 24 hours): Temp Pulse Resp BP Pulse Ox 97.7 F 111 H 20 171/80 H 95 10/11/16 10:17 10/11/16 10:17 10/11/16 10:17 10/11/16 10:10/11/16 10:17 Intake and Output: 10/11/16 10/11/16 06:59 18:59 Intake Total 150 Balance 150 - Medications Medications: Current Medications Acetaminophen (Tylenol 325mg Tab) 650 mg PO Q4 PRN PRN Reason: Fever >100.4 F Last Admin: 10/02/16 16:27 Dose: 650 mg Acetaminophen (Tylenol 325mg Tab) 650 mg PO Q4 PRN PRN Reason: Pain, moderate (4-7) Last Admin: 09/16/16 22:34 Dose: 650 mg Albuterol Sulfate (Albuterol 0.083% Inhal Barbie (2.5 Mg/3 Ml) Ud) 2.5 mg INH RQ4 PRN PRN Reason: Shortness of Breath Albuterol/Ipratropium (Duoneb 3 Mg/0.5 Mg (3 Ml) Ud) 3 ml INH RQ4 PRN PRN Reason: Shortness of Breath Aspirin (Ecotrin) 81 mg PO DAILY [facility] Last Admin: 10/06/16 09:06 Dose: 81 mg Atorvastatin Calcium (Lipitor) 40 mg PO DAILY [facility] Last Admin: 10/11/16 09:10 Dose: Not Given Benzonatate (Tessalon Perles) 200 mg PO TID PRN PRN Reason: Cough Last Admin: 10/02/16 14:07 Dose: 200 mg Cinacalcet (Sensipar) 30 mg PO DAILY [facility] Last Admin: 10/11/16 09:09 Dose: Not Given Diphenhydramine HCl (Benadryl) 25 mg PO Q6 PRN PRN Reason: Itching / Pruritus Epoetin Tha (Procrit) 20,000 unit IV [facility] [place] Last Admin: 10/11/16 13:22 Dose: 20,000 unit Ergocalciferol (Drisdol 50,000 Intl Units Cap) 1 cap PO Q7D [facility] Stop: 11/06/16 11:16 Last Admin: 10/09/16 17:42 Dose: 1 cap Fluconazole (Diflucan) 100 mg PO DAILY [facility] Last Admin: 10/11/16 09:07 Dose: Not Given Gabapentin (Neurontin) 300 mg PO TID [facility] Last Admin: 10/11/16 09:08 Dose: Not Given Hydrocortisone (Anusol-Hc) 1 applic [place] BID [facility] Last Admin: 10/11/16 09:08 Dose: Not Given Hydromorphone HCl (Dilaudid) 1 mg IVP Q3H PRN PRN Reason: Pain, severe (8-10) Last Admin: 10/11/16 10:22 Dose: 1 mg Amikacin Sulfate 250 mg/ (Sodium Chloride) 101 mls @ 100.609 mls/hr IVPB [facility] [place] Last Admin: 10/11/16 13:23 Dose: 100.609 mls/hr Meropenem 500 mg/ Sodium (Chloride) 100 mls @ 100 mls/hr IVPB DAILY@0100 [facility] Last Admin: 10/11/16 00:23 Dose: 100 mls/hr Piperacillin Sod/Tazobactam (Sod 2.25 gm/ Sodium Chloride) 100 mls @ 100 mls/ hr IVPB Q12@0600,1800 [facility] Last Admin: 10/11/16 05:36 Dose: 100 mls/hr Sodium Chloride (Sodium Chloride 0.9%) 1,000 mls @ 10 mls/hr IV .Q24H [facility] Last Admin: 10/09/16 17:44 Dose: 10 mls/hr Linezolid (Zyvox 600mg/300ml D5w) 600 mg in 300 mls @ 300 mls/hr IVPB Q12@0800, 2000 [facility] Last Admin: 10/11/16 08:21 Dose: Not Given Dextrose/Sodium Chloride (Dextrose 5%-0.9% Ns 500 Ml) 500 mls @ 50 mls/hr IV .Q10H [facility] Stop: 10/11/16 18:25 Last Admin: 10/11/16 10:00 Dose: Not Given Insulin Detemir (Levemir) 30 units SC HS [facility] Last Admin: 10/10/16 22:39 Dose: 30 units Insulin Human Lispro (Humalog) 8 units SC AC [facility] Last Admin: 10/11/16 08:20 Dose: Not Given Lidocaine (Lidoderm) 1 ea TD DAILY [facility] Last Admin: 10/11/16 09:09 Dose: Not Given Nystatin (Mycostatin Oint) 1 applic TOP TID [facility] Last Admin: 10/11/16 09:08 Dose: Not Given Ondansetron HCl (Zofran Inj) 4 mg IVP Q6 PRN PRN Reason: Nausea/Vomiting Last Admin: 09/19/16 10:26 Dose: 4 mg Oxycodone/Acetaminophen (Percocet 5/325 Mg Tab) 1 tab PO Q4 PRN PRN Reason: Pain, moderate (4-7) Stop: 10/14/16 08:54 Pantoprazole Sodium (Protonix Ec Tab) 40 mg PO DAILY [facility] Last Admin: 10/11/16 09:08 Dose: Not Given Sevelamer HCl (Renagel) 1,600 mg PO TID [facility] Last Admin: 10/11/16 09:09 Dose: Not Given Topiramate (Topamax) 50 mg PO BID [facility] Last Admin: 10/11/16 09:09 Dose: Not Given Vitamin B Complex/Vit C/Folic Acid (Nephro-Ajay) 1 tab PO DAILY [facility] Last Admin: 10/11/16 09:08 Dose: Not Given - Labs Labs: 10/11/16 07:00 10/11/16 07:00 PT 12.0 SECONDS (9.6-11.2) H 10/07/16 06:30 INR 1.15 (0.92-1.08) H 10/07/16 06:30 APTT 32.3 SECONDS (23.3-32.5) 10/07/16 06:30 - Constitutional Appears: No Acute Distress - Head Exam Head Exam: NORMAL INSPECTION - Eye Exam Eye Exam: Normal appearance - ENT Exam ENT Exam: Mucous Membranes Moist - Neck Exam Neck Exam: Normal Inspection Additional comments: R subclavian permacath is functioning well. - Respiratory Exam Respiratory Exam: Clear to Ausculation Bilateral, NORMAL BREATHING PATTERN - Cardiovascular Exam Cardiovascular Exam: Tachycardia, REGULAR RHYTHM - GI/Abdominal Exam GI & Abdominal Exam: Soft - Extremities Exam Additional comments: Right BK amputation site is healing nicely with the exception of a 1.5 cm area which has opened. This has nice granulation tissue and no sign of purulence. Otherwise other extremities as before. - Back Exam Back Exam: NORMAL INSPECTION - Neurological Exam Neurological Exam: Alert, CN II-XII Intact - Psychiatric Exam Psychiatric exam: Flat Affect Assessment and Plan (1) Status post below knee amputation of right lower extremity Status: Acute (2) Osteomyelitis of ankle or foot Status: Acute (3) ESRD (end stage renal disease) on dialysis Status: Chronic (4) DM type 2 (diabetes mellitus, type 2) Status: Chronic (5) Coagulopathy Status: Chronic (6) Anemia, blood loss Status: Acute (7) Peripheral arterial occlusive disease Status: Chronic (8) Menorrhagia Status: Acute - Assessment and Plan (Free Text) Assessment: OVERALL DOING WELL - CONTINUE PRESENT COURSE - RESTART ANTICOAGULATION TOMORROW.
--- NOTE | 2016-10-11 14:31 | CP.PCM.PN ---
Subjective - Date & Time of Evaluation Date of Evaluation: 10/11/16 Time of Evaluation: 14:24 - Subjective Subjective: Patient has no acute or new complaints today.There is no increasing pain at the right BKA site. Objective - Vital Signs/Intake and Output Vital Signs (last 24 hours): Temp Pulse Resp BP Pulse Ox 97.7 F 111 H 20 171/80 H 95 10/11/16 10:17 10/11/16 10:17 10/11/16 10:17 10/11/16 10:10/11/16 10:17 Intake and Output: 10/11/16 10/11/16 06:59 18:59 Intake Total 150 Balance 150 - Medications Medications: Current Medications Acetaminophen (Tylenol 325mg Tab) 650 mg PO Q4 PRN PRN Reason: Fever >100.4 F Last Admin: 10/02/16 16:27 Dose: 650 mg Acetaminophen (Tylenol 325mg Tab) 650 mg PO Q4 PRN PRN Reason: Pain, moderate (4-7) Last Admin: 09/16/16 22:34 Dose: 650 mg Albuterol Sulfate (Albuterol 0.083% Inhal Barbie (2.5 Mg/3 Ml) Ud) 2.5 mg INH RQ4 PRN PRN Reason: Shortness of Breath Albuterol/Ipratropium (Duoneb 3 Mg/0.5 Mg (3 Ml) Ud) 3 ml INH RQ4 PRN PRN Reason: Shortness of Breath Aspirin (Ecotrin) 81 mg PO DAILY [facility] Last Admin: 10/06/16 09:06 Dose: 81 mg Atorvastatin Calcium (Lipitor) 40 mg PO DAILY [facility] Last Admin: 10/11/16 09:10 Dose: Not Given Benzonatate (Tessalon Perles) 200 mg PO TID PRN PRN Reason: Cough Last Admin: 10/02/16 14:07 Dose: 200 mg Cinacalcet (Sensipar) 30 mg PO DAILY [facility] Last Admin: 10/11/16 09:09 Dose: Not Given Diphenhydramine HCl (Benadryl) 25 mg PO Q6 PRN PRN Reason: Itching / Pruritus Epoetin Tha (Procrit) 20,000 unit IV MWF [facility] Last Admin: 10/11/16 13:22 Dose: 20,000 unit Ergocalciferol (Drisdol 50,000 Intl Units Cap) 1 cap PO Q7D [facility] Stop: 11/06/16 11:16 Last Admin: 10/09/16 17:42 Dose: 1 cap Fluconazole (Diflucan) 100 mg PO DAILY [facility] Last Admin: 10/11/16 09:07 Dose: Not Given Gabapentin (Neurontin) 300 mg PO TID [facility] Last Admin: 10/11/16 09:08 Dose: Not Given Hydrocortisone (Anusol-Hc) 1 applic [place] BID [facility] Last Admin: 10/11/16 09:08 Dose: Not Given Hydromorphone HCl (Dilaudid) 1 mg IVP Q3H PRN PRN Reason: Pain, severe (8-10) Last Admin: 10/11/16 10:22 Dose: 1 mg Amikacin Sulfate 250 mg/ (Sodium Chloride) 101 mls @ 100.609 mls/hr IVPB MWF [facility] Last Admin: 10/11/16 13:23 Dose: 100.609 mls/hr Meropenem 500 mg/ Sodium (Chloride) 100 mls @ 100 mls/hr IVPB DAILY@0100 [facility] Last Admin: 10/11/16 00:23 Dose: 100 mls/hr Piperacillin Sod/Tazobactam (Sod 2.25 gm/ Sodium Chloride) 100 mls @ 100 mls/ hr IVPB Q12@0600,1800 [facility] Last Admin: 10/11/16 05:36 Dose: 100 mls/hr Sodium Chloride (Sodium Chloride 0.9%) 1,000 mls @ 10 mls/hr IV .Q24H [facility] Last Admin: 10/09/16 17:44 Dose: 10 mls/hr Linezolid (Zyvox 600mg/300ml D5w) 600 mg in 300 mls @ 300 mls/hr IVPB Q12@0800, 2000 [facility] Last Admin: 10/11/16 08:21 Dose: Not Given Dextrose/Sodium Chloride (Dextrose 5%-0.9% Ns 500 Ml) 500 mls @ 50 mls/hr IV .Q10H [facility] Stop: 10/11/16 18:25 Last Admin: 10/11/16 10:00 Dose: Not Given Insulin Detemir (Levemir) 30 units SC [facility] Last Admin: 10/10/16 22:39 Dose: 30 units Insulin Human Lispro (Humalog) 8 units SC AC [facility] Last Admin: 10/11/16 08:20 Dose: Not Given Lidocaine (Lidoderm) 1 ea TD DAILY [facility] Last Admin: 10/11/16 09:09 Dose: Not Given Nystatin (Mycostatin Oint) 1 applic TOP TID [facility] Last Admin: 10/11/16 09:08 Dose: Not Given Ondansetron HCl (Zofran Inj) 4 mg IVP Q6 PRN PRN Reason: Nausea/Vomiting Last Admin: 09/19/16 10:26 Dose: 4 mg Oxycodone/Acetaminophen (Percocet 5/325 Mg Tab) 1 tab PO Q4 PRN PRN Reason: Pain, moderate (4-7) Stop: 10/14/16 08:54 Pantoprazole Sodium (Protonix Ec Tab) 40 mg PO DAILY [facility] Last Admin: 10/11/16 09:08 Dose: Not Given Sevelamer HCl (Renagel) 1,600 mg PO TID [facility] Last Admin: 10/11/16 09:09 Dose: Not Given Topiramate (Topamax) 50 mg PO BID [facility] Last Admin: 10/11/16 09:09 Dose: Not Given Vitamin B Complex/Vit C/Folic Acid (Nephro-Ajay) 1 tab PO DAILY [facility] Last Admin: 10/11/16 09:08 Dose: Not Given - Labs Labs: 10/11/16 07:00 10/11/16 07:00 PT 12.0 SECONDS (9.6-11.2) H 10/07/16 06:30 INR 1.15 (0.92-1.08) H 10/07/16 06:30 APTT 32.3 SECONDS (23.3-32.5) 10/07/16 06:30 - Head Exam Head Exam: ATRAUMATIC, NORMAL INSPECTION, NORMOCEPHALIC - Eye Exam Eye Exam: EOMI, Normal appearance - ENT Exam ENT Exam: Normal Exam - Neck Exam Neck Exam: Normal Inspection - Respiratory Exam Respiratory Exam: NORMAL BREATHING PATTERN - Cardiovascular Exam Cardiovascular Exam: REGULAR RHYTHM - GI/Abdominal Exam GI & Abdominal Exam: Soft, Normal Bowel Sounds - Extremities Exam Extremities Exam: Normal Inspection Additional comments: Exam at the baseline - Neurological Exam Neurological Exam: Alert, Awake, CN II-XII Intact, Normal Gait, Oriented x3 - Additional Findings Additional findings: Patient appears quite well overall. In no acute distress, fully alert and appropriate. Assessment and Plan - Assessment and Plan (Free Text) Assessment: Right BKA stump inspected, packing removed and dressing changed. Wound appears essentially unchanged, still with scant discharge and no krystal pus or purulence. There is no erythema, cellulitis, increased pain or tenderness or krystal tissue necrosis associated with the wound. Plan: Continue current care. Continue local wound care. I consulted Wound Care service to evaluate and treat right BKA wound. Will follow closely.
[2016-10-11] MEDS ORDERED: Povidone Iodine Topical 10% Sol ONE (14:34)
[2016-10-11] MEDS: Insulin Detemir 100 Units/ml Inj SC SCH (22:44)
--- NOTE | 2016-10-11 23:40 | CP.PCM.PN ---
Subjective - Date & Time of Evaluation Date of Evaluation: 10/11/16 Time of Evaluation: 21:00 - Subjective Subjective: She is doing better. She underwent today a successful procedure of D and C for her Vaginal Bleeding. She has no seizures and is sleeping quietly. Today she felt some pain at the site of the Stump of Amputation, when she was moved in bed. This pain did not last long and resolved once she stayed without movements. Objective - Vital Signs/Intake and Output Vital Signs (last 24 hours): Temp Pulse Resp BP Pulse Ox 97.8 F 120 H 18 182/86 H 96 10/11/16 15:53 10/11/16 15:53 10/11/16 15:53 10/11/16 15:53 10/11/16 15:53 Intake and Output: 10/11/16 10/12/16 18:59 06:59 Intake Total 150 Balance 150 - Medications Medications: Current Medications Acetaminophen (Tylenol 325mg Tab) 650 mg PO Q4 PRN PRN Reason: Fever >100.4 F Last Admin: 10/02/16 16:27 Dose: 650 mg Acetaminophen (Tylenol 325mg Tab) 650 mg PO Q4 PRN PRN Reason: Pain, moderate (4-7) Last Admin: 09/16/16 22:34 Dose: 650 mg Albuterol Sulfate (Albuterol 0.083% Inhal Barbie (2.5 Mg/3 Ml) Ud) 2.5 mg INH RQ4 PRN PRN Reason: Shortness of Breath Albuterol/Ipratropium (Duoneb 3 Mg/0.5 Mg (3 Ml) Ud) 3 ml INH RQ4 PRN PRN Reason: Shortness of Breath Aspirin (Ecotrin) 81 mg PO DAILY [facility] Last Admin: 10/06/16 09:06 Dose: 81 mg Atorvastatin Calcium (Lipitor) 40 mg PO DAILY [facility] Last Admin: 10/11/16 09:10 Dose: Not Given Benzonatate (Tessalon Perles) 200 mg PO TID PRN PRN Reason: Cough Last Admin: 10/02/16 14:07 Dose: 200 mg Cinacalcet (Sensipar) 30 mg PO DAILY [facility] Last Admin: 10/11/16 09:09 Dose: Not Given Diphenhydramine HCl (Benadryl) 25 mg PO Q6 PRN PRN Reason: Itching / Pruritus Epoetin Tha (Procrit) 20,000 unit IV MWF [facility] Last Admin: 10/11/16 13:22 Dose: 20,000 unit Ergocalciferol (Drisdol 50,000 Intl Units Cap) 1 cap PO Q7D [facility] Stop: 11/06/16 11:16 Last Admin: 10/09/16 17:42 Dose: 1 cap Fluconazole (Diflucan) 100 mg PO DAILY [facility] Last Admin: 10/11/16 09:07 Dose: Not Given Gabapentin (Neurontin) 300 mg PO TID [facility] Last Admin: 10/11/16 17:45 Dose: 300 mg Hydrocortisone (Anusol-Hc) 1 applic [place] BID [facility] Last Admin: 10/11/16 17:49 Dose: Not Given Hydromorphone HCl (Dilaudid) 1 mg IVP Q3H PRN PRN Reason: Pain, severe (8-10) Last Admin: 10/11/16 20:59 Dose: 1 mg Amikacin Sulfate 250 mg/ (Sodium Chloride) 101 mls @ 100.609 mls/hr IVPB [facility] [place] Last Admin: 10/11/16 13:23 Dose: 100.609 mls/hr Meropenem 500 mg/ Sodium (Chloride) 100 mls @ 100 mls/hr IVPB DAILY@0100 [facility] Last Admin: 10/11/16 00:23 Dose: 100 mls/hr Piperacillin Sod/Tazobactam (Sod 2.25 gm/ Sodium Chloride) 100 mls @ 100 mls/ hr IVPB Q12@0600,1800 [facility] Last Admin: 10/11/16 17:54 Dose: 100 mls/hr Sodium Chloride (Sodium Chloride 0.9%) 1,000 mls @ 10 mls/hr IV .Q24H [facility] Last Admin: 10/09/16 17:44 Dose: 10 mls/hr Linezolid (Zyvox 600mg/300ml D5w) 600 mg in 300 mls @ 300 mls/hr IVPB Q12@0800, 2000 [facility] Last Admin: 10/11/16 20:46 Dose: 300 mls/hr Insulin Detemir (Levemir) 30 units SC HS [facility] Last Admin: 10/11/16 22:44 Dose: 30 units Insulin Human Lispro (Humalog) 8 units SC AC [facility] Last Admin: 10/11/16 17:47 Dose: 8 units Lidocaine (Lidoderm) 1 ea TD DAILY [facility] Last Admin: 10/11/16 09:09 Dose: Not Given Nystatin (Mycostatin Oint) 1 applic TOP TID [facility] Last Admin: 10/11/16 17:45 Dose: 1 applic Ondansetron HCl (Zofran Inj) 4 mg IVP Q6 PRN PRN Reason: Nausea/Vomiting Last Admin: 09/19/16 10:26 Dose: 4 mg Oxycodone/Acetaminophen (Percocet 5/325 Mg Tab) 1 tab PO Q4 PRN PRN Reason: Pain, moderate (4-7) Stop: 10/14/16 08:54 Pantoprazole Sodium (Protonix Ec Tab) 40 mg PO DAILY [facility] Last Admin: 10/11/16 09:08 Dose: Not Given Sevelamer HCl (Renagel) 1,600 mg PO TID [facility] Last Admin: 10/11/16 17:44 Dose: 1,600 mg Topiramate (Topamax) 50 mg PO BID [facility] Last Admin: 10/11/16 17:46 Dose: 50 mg Vitamin B Complex/Vit C/Folic Acid (Nephro-Ajay) 1 tab PO DAILY [facility] Last Admin: 10/11/16 09:08 Dose: Not Given - Labs Labs: 10/11/16 07:00 10/11/16 07:00 PT 12.0 SECONDS (9.6-11.2) H 10/07/16 06:30 INR 1.15 (0.92-1.08) H 10/07/16 06:30 APTT 32.3 SECONDS (23.3-32.5) 10/07/16 06:30 Assessment and Plan (1) Diabetes Status: Chronic (2) ESRD (end stage renal disease) Status: Chronic (3) Cellulitis of leg Status: Chronic (4) Hyperlipidemia Status: Chronic (5) Back pain Status: Acute (6) Bacteremia due to Gram-negative bacteria Status: Acute (7) Diabetes mellitus type 2 with peripheral artery disease Status: Acute (8) PVD (peripheral vascular disease) Status: Acute (9) Osteomyelitis of right foot Status: Acute (10) Fungal infection right foot Status: Acute
[2016-10-12] MEDS: Meropenem 500 MG in Sodium Chloride 0.9% 100 ML IVPB SCH (01:04)
[2016-10-12] MEDS: HYDROmorphone 0.5 mg/0.5 ml ISec IVP PRN ×3 (06:02→18:19)
--- NOTE | 2016-10-12 08:39 | CP.PCM.PN ---
Subjective - Date & Time of Evaluation Date of Evaluation: 10/12/16 Time of Evaluation: 08:37 - Subjective Subjective: Vascular Sx: Dr Mccormack Pt S&E. NAEO. Resting comfortably. Denies any worsening of pain at BKA site. Wound care services now managing wound. Objective - Vital Signs/Intake and Output Vital Signs (last 24 hours): Temp Pulse Resp BP Pulse Ox 98.9 F 117 H 20 96/58 L 94 L 10/12/16 00:03 10/12/16 00:03 10/12/16 00:03 10/12/16 00:03 10/12/16 00:03 - Medications Medications: Current Medications Acetaminophen (Tylenol 325mg Tab) 650 mg PO Q4 PRN PRN Reason: Fever >100.4 F Last Admin: 10/02/16 16:27 Dose: 650 mg Acetaminophen (Tylenol 325mg Tab) 650 mg PO Q4 PRN PRN Reason: Pain, moderate (4-7) Last Admin: 09/16/16 22:34 Dose: 650 mg Albuterol Sulfate (Albuterol 0.083% Inhal Barbie (2.5 Mg/3 Ml) Ud) 2.5 mg INH RQ4 PRN PRN Reason: Shortness of Breath Albuterol/Ipratropium (Duoneb 3 Mg/0.5 Mg (3 Ml) Ud) 3 ml INH RQ4 PRN PRN Reason: Shortness of Breath Aspirin (Ecotrin) 81 mg PO DAILY [facility] Last Admin: 10/06/16 09:06 Dose: 81 mg Atorvastatin Calcium (Lipitor) 40 mg PO DAILY [facility] Last Admin: 10/11/16 09:10 Dose: Not Given Benzonatate (Tessalon Perles) 200 mg PO TID PRN PRN Reason: Cough Last Admin: 10/02/16 14:07 Dose: 200 mg Cinacalcet (Sensipar) 30 mg PO DAILY [facility] Last Admin: 10/11/16 09:09 Dose: Not Given Diphenhydramine HCl (Benadryl) 25 mg PO Q6 PRN PRN Reason: Itching / Pruritus Epoetin Tha (Procrit) 20,000 unit IV MWF [facility] Last Admin: 10/11/16 13:22 Dose: 20,000 unit Ergocalciferol (Drisdol 50,000 Intl Units Cap) 1 cap PO Q7D [facility] Stop: 11/06/16 11:16 Last Admin: 10/09/16 17:42 Dose: 1 cap Fluconazole (Diflucan) 100 mg PO DAILY [facility] Last Admin: 10/11/16 09:07 Dose: Not Given Gabapentin (Neurontin) 300 mg PO TID [facility] Last Admin: 10/11/16 17:45 Dose: 300 mg Hydrocortisone (Anusol-Hc) 1 applic [place] BID [facility] Last Admin: 10/11/16 17:49 Dose: Not Given Hydromorphone HCl (Dilaudid) 1 mg IVP Q3H PRN PRN Reason: Pain, severe (8-10) Last Admin: 10/12/16 06:02 Dose: 1 mg Amikacin Sulfate 250 mg/ (Sodium Chloride) 101 mls @ 100.609 mls/hr IVPB MWF [facility] Last Admin: 10/11/16 13:23 Dose: 100.609 mls/hr Meropenem 500 mg/ Sodium (Chloride) 100 mls @ 100 mls/hr IVPB DAILY@0100 [facility] Last Admin: 10/12/16 01:04 Dose: 100 mls/hr Piperacillin Sod/Tazobactam (Sod 2.25 gm/ Sodium Chloride) 100 mls @ 100 mls/ hr IVPB Q12@0600,1800 [facility] Last Admin: 10/12/16 05:12 Dose: 100 mls/hr Sodium Chloride (Sodium Chloride 0.9%) 1,000 mls @ 10 mls/hr IV .Q24H [facility] Last Admin: 10/09/16 17:44 Dose: 10 mls/hr Linezolid (Zyvox 600mg/300ml D5w) 600 mg in 300 mls @ 300 mls/hr IVPB Q12@0800, 2000 [facility] Last Admin: 10/11/16 20:46 Dose: 300 mls/hr Insulin Detemir (Levemir) 30 units SC HS [facility] Last Admin: 10/11/16 22:44 Dose: 30 units Insulin Human Lispro (Humalog) 8 units SC AC [facility] Last Admin: 10/11/16 17:47 Dose: 8 units Lidocaine (Lidoderm) 1 ea TD DAILY [facility] Last Admin: 10/11/16 09:09 Dose: Not Given Nystatin (Mycostatin Oint) 1 applic TOP TID [facility] Last Admin: 10/11/16 17:45 Dose: 1 applic Ondansetron HCl (Zofran Inj) 4 mg IVP Q6 PRN PRN Reason: Nausea/Vomiting Last Admin: 09/19/16 10:26 Dose: 4 mg Oxycodone/Acetaminophen (Percocet 5/325 Mg Tab) 1 tab PO Q4 PRN PRN Reason: Pain, moderate (4-7) Stop: 10/14/16 08:54 Pantoprazole Sodium (Protonix Ec Tab) 40 mg PO DAILY [facility] Last Admin: 10/11/16 09:08 Dose: Not Given Sevelamer HCl (Renagel) 1,600 mg PO TID [facility] Last Admin: 10/11/16 17:44 Dose: 1,600 mg Topiramate (Topamax) 50 mg PO BID [facility] Last Admin: 10/11/16 17:46 Dose: 50 mg Vitamin B Complex/Vit C/Folic Acid (Nephro-Ajay) 1 tab PO DAILY [facility] Last Admin: 10/11/16 09:08 Dose: Not Given - Labs Labs: 10/11/16 07:00 10/11/16 07:00 PT 12.0 SECONDS (9.6-11.2) H 10/07/16 06:30 INR 1.15 (0.92-1.08) H 10/07/16 06:30 APTT 32.3 SECONDS (23.3-32.5) 10/07/16 06:30 - Constitutional Appears: Non-toxic, No Acute Distress - Respiratory Exam Respiratory Exam: absent: Respiratory Distress - GI/Abdominal Exam GI & Abdominal Exam: Soft. absent: Distended, Tenderness - Extremities Exam Additional comments: right BKA, dressing c/d/i - Neurological Exam Neurological Exam: Alert, Awake - Skin Skin Exam: Normal Color, Warm Assessment and Plan - Assessment and Plan (Free Text) Plan: 46F POD#11 s/p right BKA cont wound care - wound care services now consulted will cont to monitor further mgmt per primary team will d/w Dr Easton Rachel, DO, PGY2
[2016-10-12] MEDS: Linezolid 600 mg in D5W 300 ml 600 MG/300 ML BAG IVPB SCH ×2 (08:56→20:59)
[2016-10-12] MEDS: Pantoprazole 40 mg EC Tab PO SCH (08:56)
[2016-10-12] MEDS: Nystatin Ointment TOP SCH ×3 (08:57→17:19)
[2016-10-12] MEDS: Insulin Lispro (humaLOG) 100 Units/ml Inj SC SCH ×3 (08:57→17:20)
[2016-10-12] MEDS: Hydrocortisone 2.5% (Rectal) CREAM PR SCH ×2 (09:00→17:21)
[2016-10-12] MEDS: Lidocaine 5% Patch TD SCH (09:01)
[2016-10-12] MEDS: Multivitamin Vitamin B Complex (Nephro-Vite) Tab PO SCH (12:34)
--- NOTE | 2016-10-12 12:54 | CP.PCM.PN ---
Subjective - Date & Time of Evaluation Date of Evaluation: 10/12/16 Time of Evaluation: 12:53 - Subjective Subjective: Pt has no more bleeding, vaginally, and the count is stable. Will follow. Objective - Vital Signs/Intake and Output Vital Signs (last 24 hours): Temp Pulse Resp BP Pulse Ox 97.6 F 113 H 20 136/84 95 10/12/16 08:41 10/12/16 08:41 10/12/16 08:41 10/12/16 08:41 10/12/16 08:41 - Medications Medications: Current Medications Acetaminophen (Tylenol 325mg Tab) 650 mg PO Q4 PRN PRN Reason: Fever >100.4 F Last Admin: 10/02/16 16:27 Dose: 650 mg Acetaminophen (Tylenol 325mg Tab) 650 mg PO Q4 PRN PRN Reason: Pain, moderate (4-7) Last Admin: 09/16/16 22:34 Dose: 650 mg Albuterol Sulfate (Albuterol 0.083% Inhal Barbie (2.5 Mg/3 Ml) Ud) 2.5 mg INH RQ4 PRN PRN Reason: Shortness of Breath Albuterol/Ipratropium (Duoneb 3 Mg/0.5 Mg (3 Ml) Ud) 3 ml INH RQ4 PRN PRN Reason: Shortness of Breath Aspirin (Ecotrin) 81 mg PO DAILY [facility] Last Admin: 10/06/16 09:06 Dose: 81 mg Atorvastatin Calcium (Lipitor) 40 mg PO DAILY [facility] Last Admin: 10/12/16 08:57 Dose: 40 mg Benzonatate (Tessalon Perles) 200 mg PO TID PRN PRN Reason: Cough Last Admin: 10/02/16 14:07 Dose: 200 mg Cinacalcet (Sensipar) 30 mg PO DAILY [facility] Last Admin: 10/12/16 08:57 Dose: 30 mg Diphenhydramine HCl (Benadryl) 25 mg PO Q6 PRN PRN Reason: Itching / Pruritus Epoetin Tha (Procrit) 20,000 unit IV MWF [facility] Last Admin: 10/11/16 13:22 Dose: 20,000 unit Ergocalciferol (Drisdol 50,000 Intl Units Cap) 1 cap PO Q7D [facility] Stop: 11/06/16 11:16 Last Admin: 10/09/16 17:42 Dose: 1 cap Fluconazole (Diflucan) 100 mg PO DAILY [facility] Last Admin: 10/12/16 08:56 Dose: 100 mg Gabapentin (Neurontin) 300 mg PO TID [facility] Last Admin: 10/12/16 12:34 Dose: 300 mg Hydrocortisone (Anusol-Hc) 1 applic [place] BID [facility] Last Admin: 10/12/16 09:00 Dose: 1 applic Hydromorphone HCl (Dilaudid) 1 mg IVP Q3H PRN PRN Reason: Pain, severe (8-10) Last Admin: 10/12/16 10:10 Dose: 1 mg Amikacin Sulfate 250 mg/ (Sodium Chloride) 101 mls @ 100.609 mls/hr IVPB MWF [facility] Last Admin: 10/11/16 13:23 Dose: 100.609 mls/hr Meropenem 500 mg/ Sodium (Chloride) 100 mls @ 100 mls/hr IVPB DAILY@0100 [facility] Last Admin: 10/12/16 01:04 Dose: 100 mls/hr Piperacillin Sod/Tazobactam (Sod 2.25 gm/ Sodium Chloride) 100 mls @ 100 mls/ hr IVPB Q12@0600,1800 [facility] Last Admin: 10/12/16 05:12 Dose: 100 mls/hr Sodium Chloride (Sodium Chloride 0.9%) 1,000 mls @ 10 mls/hr IV .Q24H [facility] Last Admin: 10/09/16 17:44 Dose: 10 mls/hr Linezolid (Zyvox 600mg/300ml D5w) 600 mg in 300 mls @ 300 mls/hr IVPB Q12@0800, 2000 [facility] Last Admin: 10/12/16 08:56 Dose: 300 mls/hr Insulin Detemir (Levemir) 30 units SC HS [facility] Last Admin: 10/11/16 22:44 Dose: 30 units Insulin Human Lispro (Humalog) 8 units SC AC [facility] Last Admin: 10/12/16 12:35 Dose: 8 units Lidocaine (Lidoderm) 1 ea TD DAILY [facility] Last Admin: 10/12/16 09:01 Dose: 1 ea Nystatin (Mycostatin Oint) 1 applic TOP TID [facility] Last Admin: 10/12/16 08:57 Dose: 1 applic Ondansetron HCl (Zofran Inj) 4 mg IVP Q6 PRN PRN Reason: Nausea/Vomiting Last Admin: 09/19/16 10:26 Dose: 4 mg Oxycodone/Acetaminophen (Percocet 5/325 Mg Tab) 1 tab PO Q4 PRN PRN Reason: Pain, moderate (4-7) Stop: 10/14/16 08:54 Pantoprazole Sodium (Protonix Ec Tab) 40 mg PO DAILY [facility] Last Admin: 10/12/16 08:56 Dose: 40 mg Sevelamer HCl (Renagel) 1,600 mg PO TID [facility] Last Admin: 10/12/16 12:34 Dose: 1,600 mg Topiramate (Topamax) 50 mg PO BID [facility] Last Admin: 10/12/16 09:01 Dose: 50 mg Vitamin B Complex/Vit C/Folic Acid (Nephro-Ajay) 1 tab PO DAILY [facility] Last Admin: 10/12/16 12:34 Dose: 1 tab - Labs Labs: 10/11/16 07:00 10/11/16 07:00 PT 12.0 SECONDS (9.6-11.2) H 10/07/16 06:30 INR 1.15 (0.92-1.08) H 10/07/16 06:30 APTT 32.3 SECONDS (23.3-32.5) 10/07/16 06:30
--- NOTE | 2016-10-12 16:20 | CP.PCM.PN ---
Subjective - Date & Time of Evaluation Date of Evaluation: 10/12/16 Time of Evaluation: 16:15 - Subjective Subjective: Day #1 Post D & C and endometril ablation by Dr. Larry. No further vaginal bleeding. Eliquis restarted by Dr. Andrew Shepard, and I will start aspirin again now. Day # 11 Post R BK amputation. The wound is healing nicely except for a 2-3 cm strip which received wound care by Richard Nails RN, yesterday. Dressing is to remain in place until wound care specialists return on 10/14. Less residual limb pain. No fevers. No cough and no dyspnea. No chest pain. All cultures from OR and subsequent blood cultures are negative so far. Still because of the small open area of incision and because of the documented osteomyelitis of the foot, the current 4 drug iv antibiotic therapy is to continue and the fluconazole po has been renewed. Will discuss further ID management with Dr. Lemon. DM controlled. Will reach out to dietitian on 10/14 to see about any potential changes in diet - currently 2gm Na, [address] Maguire's note appreciated. Objective - Vital Signs/Intake and Output Vital Signs (last 24 hours): Temp Pulse Resp BP Pulse Ox 97.6 F 113 H 20 136/84 95 10/12/16 08:41 10/12/16 08:41 10/12/16 08:41 10/12/16 08:41 10/12/16 08:41 - Medications Medications: Current Medications Acetaminophen (Tylenol 325mg Tab) 650 mg PO Q4 PRN PRN Reason: Fever >100.4 F Last Admin: 10/02/16 16:27 Dose: 650 mg Acetaminophen (Tylenol 325mg Tab) 650 mg PO Q4 PRN PRN Reason: Pain, moderate (4-7) Last Admin: 09/16/16 22:34 Dose: 650 mg Albuterol Sulfate (Albuterol 0.083% Inhal Barbie (2.5 Mg/3 Ml) Ud) 2.5 mg INH RQ4 PRN PRN Reason: Shortness of Breath Albuterol/Ipratropium (Duoneb 3 Mg/0.5 Mg (3 Ml) Ud) 3 ml INH RQ4 PRN PRN Reason: Shortness of Breath Apixaban (Eliquis) 5 mg PO BID [facility] PRN Reason: Protocol Aspirin (Ecotrin) 81 mg PO DAILY [facility] Atorvastatin Calcium (Lipitor) 40 mg PO DAILY [facility] Last Admin: 10/12/16 08:57 Dose: 40 mg Benzonatate (Tessalon Perles) 200 mg PO TID PRN PRN Reason: Cough Last Admin: 10/02/16 14:07 Dose: 200 mg Cinacalcet (Sensipar) 30 mg PO DAILY [facility] Last Admin: 10/12/16 08:57 Dose: 30 mg Diphenhydramine HCl (Benadryl) 25 mg PO Q6 PRN PRN Reason: Itching / Pruritus Epoetin Tha (Procrit) 20,000 unit IV [facility] [place] Last Admin: 10/11/16 13:22 Dose: 20,000 unit Ergocalciferol (Drisdol 50,000 Intl Units Cap) 1 cap PO Q7D [facility] Stop: 11/06/16 11:16 Last Admin: 10/09/16 17:42 Dose: 1 cap Fluconazole (Diflucan) 100 mg PO DAILY [facility] Last Admin: 10/12/16 08:56 Dose: 100 mg Gabapentin (Neurontin) 300 mg PO TID [facility] Last Admin: 10/12/16 12:34 Dose: 300 mg Hydrocortisone (Anusol-Hc) 1 applic [place] BID [facility] Last Admin: 10/12/16 09:00 Dose: 1 applic Hydromorphone HCl (Dilaudid) 1 mg IVP Q3H PRN PRN Reason: Pain, severe (8-10) Last Admin: 10/12/16 10:10 Dose: 1 mg Amikacin Sulfate 250 mg/ (Sodium Chloride) 101 mls @ 100.609 mls/hr IVPB MWF [facility] Last Admin: 10/11/16 13:23 Dose: 100.609 mls/hr Meropenem 500 mg/ Sodium (Chloride) 100 mls @ 100 mls/hr IVPB DAILY@0100 [facility] Last Admin: 10/12/16 01:04 Dose: 100 mls/hr Piperacillin Sod/Tazobactam (Sod 2.25 gm/ Sodium Chloride) 100 mls @ 100 mls/ hr IVPB Q12@0600,1800 [facility] Last Admin: 10/12/16 05:12 Dose: 100 mls/hr Sodium Chloride (Sodium Chloride 0.9%) 1,000 mls @ 10 mls/hr IV .Q24H [facility] Last Admin: 10/09/16 17:44 Dose: 10 mls/hr Linezolid (Zyvox 600mg/300ml D5w) 600 mg in 300 mls @ 300 mls/hr IVPB Q12@0800, 2000 [facility] Last Admin: 10/12/16 08:56 Dose: 300 mls/hr Insulin Detemir (Levemir) 30 units SC HS [facility] Last Admin: 10/11/16 22:44 Dose: 30 units Insulin Human Lispro (Humalog) 8 units SC AC [facility] Last Admin: 10/12/16 12:35 Dose: 8 units Lidocaine (Lidoderm) 1 ea TD DAILY [facility] Last Admin: 10/12/16 09:01 Dose: 1 ea Nystatin (Mycostatin Oint) 1 applic TOP TID [facility] Last Admin: 10/12/16 13:57 Dose: Not Given Ondansetron HCl (Zofran Inj) 4 mg IVP Q6 PRN PRN Reason: Nausea/Vomiting Last Admin: 09/19/16 10:26 Dose: 4 mg Oxycodone/Acetaminophen (Percocet 5/325 Mg Tab) 1 tab PO Q4 PRN PRN Reason: Pain, moderate (4-7) Stop: 10/14/16 08:54 Pantoprazole Sodium (Protonix Ec Tab) 40 mg PO DAILY [facility] Last Admin: 10/12/16 08:56 Dose: 40 mg Sevelamer HCl (Renagel) 1,600 mg PO TID [facility] Last Admin: 10/12/16 12:34 Dose: 1,600 mg Topiramate (Topamax) 50 mg PO BID [facility] Last Admin: 10/12/16 09:01 Dose: 50 mg Vitamin B Complex/Vit C/Folic Acid (Nephro-Ajay) 1 tab PO DAILY [facility] Last Admin: 10/12/16 12:34 Dose: 1 tab - Labs Labs: 10/11/16 07:00 10/11/16 07:00 PT 12.0 SECONDS (9.6-11.2) H 10/07/16 06:30 INR 1.15 (0.92-1.08) H 10/07/16 06:30 APTT 32.3 SECONDS (23.3-32.5) 10/07/16 06:30 Microbiology 10/09/16 12:35 Blood-During Dialysis Blood Culture - Preliminary NO GROWTH AFTER 3 DAYS 10/09/16 12:05 Blood-During Dialysis Blood Culture - Preliminary NO GROWTH AFTER 3 DAYS 10/09/16 Unknown Knee - Right Gram Stain - Final 10/09/16 Unknown Knee - Right Wound Culture - Preliminary No growth. 09/25/16 11:00 Blood-Thru Central Line Fungal Culture - Preliminary NO FUNGUS GROWTH IN 1 WEEK. 09/25/16 12:00 Blood-Thru Central Line Fungal Culture - Preliminary NO FUNGUS GROWTH IN 1 WEEK. 10/01/16 17:00 Other: Please Indicate Gram Stain - Final 10/01/16 17:00 Other: Please Indicate Anaerobic Culture - Final NO ANAEROBES ISOLATED. 10/01/16 17:00 Other: Please Indicate Wound Culture - Final No growth. 10/01/16 17:00 Other: Please Indicate Gram Stain - Final 10/01/16 17:00 Other: Please Indicate Anaerobic Culture - Final NO ANAEROBES ISOLATED. 10/01/16 17:00 Other: Please Indicate Wound Culture - Final No growth. 10/02/16 12:00 Other: Please Indicate Gram Stain - Final 10/02/16 12:00 Other: Please Indicate Anaerobic Culture - Final NO ANAEROBES ISOLATED. 10/02/16 12:00 Other: Please Indicate Wound Culture - Final No growth. 10/01/16 17:00 Other: Please Indicate Fungal Culture - Preliminary - Constitutional Appears: No Acute Distress - Head Exam Head Exam: NORMAL INSPECTION - Eye Exam Eye Exam: Normal appearance - ENT Exam ENT Exam: Mucous Membranes Moist - Neck Exam Neck Exam: Normal Inspection Additional comments: R subclavian Permacath intact. - Respiratory Exam Respiratory Exam: Clear to Ausculation Bilateral, NORMAL BREATHING PATTERN - Cardiovascular Exam Cardiovascular Exam: REGULAR RHYTHM, +S1, +S2 - GI/Abdominal Exam GI & Abdominal Exam: Soft - Extremities Exam Additional comments: Dressing in place right residual lower limb and leg elevated. Hands are warm, with no lesions and no edema. L femoral v PICC line intact - Neurological Exam Neurological Exam: Alert, Awake, CN II-XII Intact, Oriented x3 - Psychiatric Exam Psychiatric exam: Normal Affect, Normal Mood - Skin Additional comments: Lesions beneath breasts healed. Buttock lesion with Allevyn dressing. Assessment and Plan (1) Status post below knee amputation of right lower extremity Assessment & Plan: Healing slowly but with small open area. Intense wound care by skilled team is of utmost importance now. Status: Acute (2) Osteomyelitis of ankle or foot Assessment & Plan: Even though the offending foot is now longer present, we must continue the iv antibiotics for now until Dr. Lemon is confident that all traces of infection are gone. Status: Acute (3) ESRD (end stage renal disease) on dialysis Assessment & Plan: Does well on HD 3x/wk. Status: Chronic (4) DM type 2 (diabetes mellitus, type 2) Assessment & Plan: Controlled quite well under the circumstances. 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 Eliquis and aspirin have been restarted today. Status: Chronic (6) Anemia, blood loss Assessment & Plan: Will check labs on 10/14 at time of HD> Status: Acute (7) Peripheral arterial occlusive disease Status: Chronic (8) Menorrhagia Assessment & Plan: No further vaginal bleeding post procedure (see subjective). Provera was stopped. Status: Acute
--- NOTE | 2016-10-12 18:44 | CP.PCM.PN ---
Subjective - Date & Time of Evaluation Date of Evaluation: 10/12/16 Time of Evaluation: 16:00 - Subjective Subjective: Follow up Nephrology Consultation Note Assessment/Plan: End stage renal disease on hemodialysis (MWF) via permacath: Will plan for dialysis on friday. No Acute need today. continue with Nephrovite 1 tab/day. Anemia: PRBC as needed. On MARTHA as Epogen 20,000 with HD. last Hb 8.0 TSAT 73% and ferritin >1000. Hyperphosphatemia: continue with current meds as renagel 1600 TID last phos level 5.0 Secondary hyperparathyroidism with Vit D Deficiency: continue with sensipar 30 mg/day. Last PTH level 423. Vit D <12. supplement with ergo 50,000 weekly x 8 doses Hypertension controlled: BP mostly on low side Glycemic control, Dialysis consistent diet Further work up/management as per primary team. 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 Dose meds/antibiotics for ESRD status. Avoid fleets enema/magnesium based laxatives. Thanks for allowing me to participate in care of your patient. Will follow patient with you. Please call if any Qs Dr Hernan Andino Office: [phone] Subjective: Noted events overnight. Denies chest pain, palpitation, shortness of breath. s/p Rt BKA, s/p vaginal D&C, endometrial ablation. Physical Examination: General Appearance: Comfortable, in no acute respiratory distress, co- operative. obese Vitals reviewed and noted as below Lungs: Normal respiratory rate/effort. Breath sounds bilateral equal and clear Heart: Normal rate. s1s2 normal. No rub or gallop. Extremities: s/p Rt BKA, hx of left BKA. Neurological: Patient is alert, awake and oriented to person, place and time. No focal deficit. Strength bilateral appropriate and equal Skin: Warm and dry. Normal turgor. No rash. Palpitation: Normal elasticity for age Abdomen: Abdomen is soft. Bowel sounds +. There is no abdominal tenderness, no guarding/rigidity or organomegaly. she is obese : kidney or bladder not palpable Access: permacath Labs/imaging reviewed. Past medical history, past surgical history, family history, social history, allergy reviewed Objective - Vital Signs/Intake and Output Vital Signs (last 24 hours): Temp Pulse Resp BP Pulse Ox 99 F 118 H 18 112/72 97 10/12/16 16:44 10/12/16 16:44 10/12/16 16:44 10/12/16 16:44 10/12/16 16:44 - Medications Medications: Current Medications Acetaminophen (Tylenol 325mg Tab) 650 mg PO Q4 PRN PRN Reason: Fever >100.4 F Last Admin: 10/02/16 16:27 Dose: 650 mg Acetaminophen (Tylenol 325mg Tab) 650 mg PO Q4 PRN PRN Reason: Pain, moderate (4-7) Last Admin: 09/16/16 22:34 Dose: 650 mg Albuterol Sulfate (Albuterol 0.083% Inhal Barbie (2.5 Mg/3 Ml) Ud) 2.5 mg INH RQ4 PRN PRN Reason: Shortness of Breath Albuterol/Ipratropium (Duoneb 3 Mg/0.5 Mg (3 Ml) Ud) 3 ml INH RQ4 PRN PRN Reason: Shortness of Breath Apixaban (Eliquis) 5 mg PO BID [facility] PRN Reason: Protocol Last Admin: 10/12/16 17:19 Dose: 5 mg Aspirin (Ecotrin) 81 mg PO DAILY [facility] Last Admin: 10/12/16 17:19 Dose: 81 mg Atorvastatin Calcium (Lipitor) 40 mg PO DAILY [facility] Last Admin: 10/12/16 08:57 Dose: 40 mg Benzonatate (Tessalon Perles) 200 mg PO TID PRN PRN Reason: Cough Last Admin: 10/02/16 14:07 Dose: 200 mg Cinacalcet (Sensipar) 30 mg PO DAILY [facility] Last Admin: 10/12/16 08:57 Dose: 30 mg Diphenhydramine HCl (Benadryl) 25 mg PO Q6 PRN PRN Reason: Itching / Pruritus Epoetin Tha (Procrit) 20,000 unit IV MWF [facility] Last Admin: 10/11/16 13:22 Dose: 20,000 unit Ergocalciferol (Drisdol 50,000 Intl Units Cap) 1 cap PO Q7D [facility] Stop: 11/06/16 11:16 Last Admin: 10/09/16 17:42 Dose: 1 cap Fluconazole (Diflucan) 100 mg PO DAILY [facility] Last Admin: 10/12/16 08:56 Dose: 100 mg Gabapentin (Neurontin) 300 mg PO TID [facility] Last Admin: 10/12/16 17:19 Dose: 300 mg Hydrocortisone (Anusol-Hc) 1 applic [place] BID [facility] Last Admin: 10/12/16 17:21 Dose: Not Given Hydromorphone HCl (Dilaudid) 1 mg IVP Q3H PRN PRN Reason: Pain, severe (8-10) Last Admin: 10/12/16 18:19 Dose: 1 mg Amikacin Sulfate 250 mg/ (Sodium Chloride) 101 mls @ 100.609 mls/hr IVPB MWF [facility] Last Admin: 10/11/16 13:23 Dose: 100.609 mls/hr Meropenem 500 mg/ Sodium (Chloride) 100 mls @ 100 mls/hr IVPB DAILY@0100 [facility] Last Admin: 10/12/16 01:04 Dose: 100 mls/hr Piperacillin Sod/Tazobactam (Sod 2.25 gm/ Sodium Chloride) 100 mls @ 100 mls/ hr IVPB Q12@0600,1800 [facility] Last Admin: 10/12/16 18:24 Dose: 100 mls/hr Sodium Chloride (Sodium Chloride 0.9%) 1,000 mls @ 10 mls/hr IV .Q24H [facility] Last Admin: 10/09/16 17:44 Dose: 10 mls/hr Linezolid (Zyvox 600mg/300ml D5w) 600 mg in 300 mls @ 300 mls/hr IVPB Q12@0800, 2000 [facility] Last Admin: 10/12/16 08:56 Dose: 300 mls/hr Insulin Detemir (Levemir) 30 units SC HS [facility] Last Admin: 10/11/16 22:44 Dose: 30 units Insulin Human Lispro (Humalog) 8 units SC AC [facility] Last Admin: 10/12/16 17:20 Dose: 8 units Lidocaine (Lidoderm) 1 ea TD DAILY [facility] Last Admin: 10/12/16 09:01 Dose: 1 ea Nystatin (Mycostatin Oint) 1 applic TOP TID [facility] Last Admin: 10/12/16 17:19 Dose: 1 applic Ondansetron HCl (Zofran Inj) 4 mg IVP Q6 PRN PRN Reason: Nausea/Vomiting Last Admin: 09/19/16 10:26 Dose: 4 mg Oxycodone/Acetaminophen (Percocet 5/325 Mg Tab) 1 tab PO Q4 PRN PRN Reason: Pain, moderate (4-7) Stop: 10/14/16 08:54 Pantoprazole Sodium (Protonix Ec Tab) 40 mg PO DAILY [facility] Last Admin: 10/12/16 08:56 Dose: 40 mg Sevelamer HCl (Renagel) 1,600 mg PO TID [facility] Last Admin: 10/12/16 17:19 Dose: 1,600 mg Topiramate (Topamax) 50 mg PO BID [facility] Last Admin: 10/12/16 17:20 Dose: 50 mg Vitamin B Complex/Vit C/Folic Acid (Nephro-Ajay) 1 tab PO DAILY [facility] Last Admin: 10/12/16 12:34 Dose: 1 tab - Labs Labs: 10/11/16 07:00 10/11/16 07:00 PT 12.0 SECONDS (9.6-11.2) H 10/07/16 06:30 INR 1.15 (0.92-1.08) H 10/07/16 06:30 APTT 32.3 SECONDS (23.3-32.5) 10/07/16 06:30
[2016-10-12] MEDS: Sodium Chloride 0.9% 1,000 ML IV SCH (18:59)
[2016-10-12] MEDS: Insulin Detemir 100 Units/ml Inj SC SCH (22:29)
--- NOTE | 2016-10-12 23:14 | CP.PCM.PN ---
Subjective - Date & Time of Evaluation Date of Evaluation: 10/12/16 Time of Evaluation: 21:10 - Subjective Subjective: A venous access is obtained through a PICC line in the Femoral Vein. She is doing the same with some mild improvement in her level of functioning. D&C performed yesterday for vaginal bleeding. It is planned to continue the Hemodialysis and observe the functions of the Patient. There is no seizures. She is receiving care for her Diabetes and her ESRD. Objective - Vital Signs/Intake and Output Vital Signs (last 24 hours): Temp Pulse Resp BP Pulse Ox 99 F 118 H 18 112/72 97 10/12/16 16:44 10/12/16 16:44 10/12/16 16:44 10/12/16 16:44 10/12/16 16:44 - Medications Medications: Current Medications Acetaminophen (Tylenol 325mg Tab) 650 mg PO Q4 PRN PRN Reason: Fever >100.4 F Last Admin: 10/02/16 16:27 Dose: 650 mg Acetaminophen (Tylenol 325mg Tab) 650 mg PO Q4 PRN PRN Reason: Pain, moderate (4-7) Last Admin: 09/16/16 22:34 Dose: 650 mg Albuterol Sulfate (Albuterol 0.083% Inhal Barbie (2.5 Mg/3 Ml) Ud) 2.5 mg INH RQ4 PRN PRN Reason: Shortness of Breath Albuterol/Ipratropium (Duoneb 3 Mg/0.5 Mg (3 Ml) Ud) 3 ml INH RQ4 PRN PRN Reason: Shortness of Breath Apixaban (Eliquis) 5 mg PO BID [facility] PRN Reason: Protocol Last Admin: 10/12/16 17:19 Dose: 5 mg Aspirin (Ecotrin) 81 mg PO DAILY [facility] Last Admin: 10/12/16 17:19 Dose: 81 mg Atorvastatin Calcium (Lipitor) 40 mg PO DAILY [facility] Last Admin: 10/12/16 08:57 Dose: 40 mg Benzonatate (Tessalon Perles) 200 mg PO TID PRN PRN Reason: Cough Last Admin: 10/02/16 14:07 Dose: 200 mg Cinacalcet (Sensipar) 30 mg PO DAILY [facility] Last Admin: 10/12/16 08:57 Dose: 30 mg Diphenhydramine HCl (Benadryl) 25 mg PO Q6 PRN PRN Reason: Itching / Pruritus Epoetin Tha (Procrit) 20,000 unit IV MWF [facility] Last Admin: 10/11/16 13:22 Dose: 20,000 unit Ergocalciferol (Drisdol 50,000 Intl Units Cap) 1 cap PO Q7D [facility] Stop: 11/06/16 11:16 Last Admin: 10/09/16 17:42 Dose: 1 cap Fluconazole (Diflucan) 100 mg PO DAILY [facility] Last Admin: 10/12/16 08:56 Dose: 100 mg Gabapentin (Neurontin) 300 mg PO TID [facility] Last Admin: 10/12/16 17:19 Dose: 300 mg Hydrocortisone (Anusol-Hc) 1 applic [place] BID [facility] Last Admin: 10/12/16 17:21 Dose: Not Given Hydromorphone HCl (Dilaudid) 1 mg IVP Q3H PRN PRN Reason: Pain, severe (8-10) Last Admin: 10/12/16 18:19 Dose: 1 mg Amikacin Sulfate 250 mg/ (Sodium Chloride) 101 mls @ 100.609 mls/hr [facility] Last Admin: 10/11/16 13:23 Dose: 100.609 mls/hr Meropenem 500 mg/ Sodium (Chloride) 100 mls @ 100 mls/hr IVPB DAILY@0100 [facility] Last Admin: 10/12/16 01:04 Dose: 100 mls/hr Piperacillin Sod/Tazobactam (Sod 2.25 gm/ Sodium Chloride) 100 mls @ 100 mls/ hr IVPB Q12@0600,1800 [facility] Last Admin: 10/12/16 18:24 Dose: 100 mls/hr Sodium Chloride (Sodium Chloride 0.9%) 1,000 mls @ 10 mls/hr IV .Q24H [facility] Last Admin: 10/12/16 18:59 Dose: Not Given Linezolid (Zyvox 600mg/300ml D5w) 600 mg in 300 mls @ 300 mls/hr IVPB Q12@0800, 2000 [facility] Last Admin: 10/12/16 20:59 Dose: 300 mls/hr Insulin Detemir (Levemir) 30 units SC HS [facility] Last Admin: 10/12/16 22:29 Dose: 30 units Insulin Human Lispro (Humalog) 8 units SC AC [facility] Last Admin: 10/12/16 17:20 Dose: 8 units Lidocaine (Lidoderm) 1 ea TD DAILY [facility] Last Admin: 10/12/16 09:01 Dose: 1 ea Nystatin (Mycostatin Oint) 1 applic TOP TID [facility] Last Admin: 10/12/16 17:19 Dose: 1 applic Ondansetron HCl (Zofran Inj) 4 mg IVP Q6 PRN PRN Reason: Nausea/Vomiting Last Admin: 09/19/16 10:26 Dose: 4 mg Oxycodone/Acetaminophen (Percocet 5/325 Mg Tab) 1 tab PO Q4 PRN PRN Reason: Pain, moderate (4-7) Stop: 10/14/16 08:54 Pantoprazole Sodium (Protonix Ec Tab) 40 mg PO DAILY [facility] Last Admin: 10/12/16 08:56 Dose: 40 mg Sevelamer HCl (Renagel) 1,600 mg PO TID [facility] Last Admin: 10/12/16 17:19 Dose: 1,600 mg Topiramate (Topamax) 50 mg PO BID [facility] Last Admin: 10/12/16 17:20 Dose: 50 mg Vitamin B Complex/Vit C/Folic Acid (Nephro-Ajay) 1 tab PO DAILY [facility] Last Admin: 10/12/16 12:34 Dose: 1 tab - Labs Labs: 10/11/16 07:00 10/11/16 07:00 PT 12.0 SECONDS (9.6-11.2) H 10/07/16 06:30 INR 1.15 (0.92-1.08) H 10/07/16 06:30 APTT 32.3 SECONDS (23.3-32.5) 10/07/16 06:30 Assessment and Plan (1) Diabetes Status: Chronic (2) ESRD (end stage renal disease) Status: Chronic (3) Cellulitis of leg Status: Chronic (4) Hyperlipidemia Status: Chronic (5) Back pain Status: Acute (6) Bacteremia due to Gram-negative bacteria Status: Acute (7) Diabetes mellitus type 2 with peripheral artery disease Status: Acute (8) PVD (peripheral vascular disease) Status: Acute (9) Osteomyelitis of right foot Status: Acute (10) Fungal infection right foot Status: Acute
[2016-10-13] MEDS: Meropenem 500 MG in Sodium Chloride 0.9% 100 ML IVPB SCH (01:25)
[2016-10-13] MEDS: HYDROmorphone 0.5 mg/0.5 ml ISec IVP PRN ×3 (03:39→19:11)
[2016-10-13] MEDS: Insulin Lispro (humaLOG) 100 Units/ml Inj SC SCH ×3 (09:20→18:04)
[2016-10-13] MEDS: Lidocaine 5% Patch TD SCH (09:21)
[2016-10-13] MEDS: Nystatin Ointment TOP SCH ×3 (09:22→18:05)
[2016-10-13] MEDS: Pantoprazole 40 mg EC Tab PO SCH (09:23)
[2016-10-13] MEDS: Multivitamin Vitamin B Complex (Nephro-Vite) Tab PO SCH (09:23)
[2016-10-13] MEDS: Linezolid 600 mg in D5W 300 ml 600 MG/300 ML BAG IVPB SCH ×2 (09:34→20:30)
--- NOTE | 2016-10-13 11:46 | PN ---
DATE: 10/13/2016 ENDO FOLLOWUP NOTE In room 663. This is a 46-year-old female with recent uncontrolled type 2 insulin-requiring diabetes, now being fo llowed closely for metabolic management. She has improved metabolically with the recent right below- knee amputation procedure undertaken thereof. LABORATORY DATA: Her latest glucose levels have ranged from 119-128 mg/dL. The latest chemistries s howed a BUN of 36, sodium 140, potassium 4.2, chloride 100, CO2 of 27, glucose 128, and creatinine 5. 8. So, at this time, we will continue the same modified basal and bolus insulin regimen as ordered with Humalog given as 8 units subQ t.i.d. before meals, and Levemir given as 30 units subQ at bedtime grover y as given. We will titrate incrementally as indicated to optimize metabolic control. We will follo w. Irene Ambrose MD cc: [id number] TT: 10/13/2016 11:46:06 Confirmation # [id number] Dictation # [id number]
--- NOTE | 2016-10-13 12:07 | CP.PCM.PN ---
Subjective - Date & Time of Evaluation Date of Evaluation: 10/13/16 Time of Evaluation: 12:05 - Subjective Subjective: Vascular Surgery - Dr. Mccormack Pt S&EJoe TOTH. Pt denies any complaints at this time. She continues to work with PT/OT. Wound care doing dressing change to R stump. Objective - Vital Signs/Intake and Output Vital Signs (last 24 hours): Temp Pulse Resp BP Pulse Ox 97.5 F L 62 20 141/58 L 97 10/13/16 08:19 10/13/16 08:19 10/13/16 08:19 10/13/16 08:19 10/13/16 08:19 - Medications Medications: Current Medications Acetaminophen (Tylenol 325mg Tab) 650 mg PO Q4 PRN PRN Reason: Fever >100.4 F Last Admin: 10/02/16 16:27 Dose: 650 mg Acetaminophen (Tylenol 325mg Tab) 650 mg PO Q4 PRN PRN Reason: Pain, moderate (4-7) Last Admin: 09/16/16 22:34 Dose: 650 mg Albuterol Sulfate (Albuterol 0.083% Inhal Barbie (2.5 Mg/3 Ml) Ud) 2.5 mg INH RQ4 PRN PRN Reason: Shortness of Breath Albuterol/Ipratropium (Duoneb 3 Mg/0.5 Mg (3 Ml) Ud) 3 ml INH RQ4 PRN PRN Reason: Shortness of Breath Apixaban (Eliquis) 5 mg PO BID [facility] PRN Reason: Protocol Last Admin: 10/13/16 09:19 Dose: 5 mg Aspirin (Ecotrin) 81 mg PO DAILY [facility] Last Admin: 10/13/16 09:18 Dose: 81 mg Atorvastatin Calcium (Lipitor) 40 mg PO DAILY [facility] Last Admin: 10/13/16 09:22 Dose: 40 mg Benzonatate (Tessalon Perles) 200 mg PO TID PRN PRN Reason: Cough Last Admin: 10/02/16 14:07 Dose: 200 mg Cinacalcet (Sensipar) 30 mg PO DAILY [facility] Last Admin: 10/13/16 09:23 Dose: 30 mg Diphenhydramine HCl (Benadryl) 25 mg PO Q6 PRN PRN Reason: Itching / Pruritus Epoetin Tha (Procrit) 20,000 unit IV MWF [facility] Last Admin: 10/11/16 13:22 Dose: 20,000 unit Ergocalciferol (Drisdol 50,000 Intl Units Cap) 1 cap PO Q7D [facility] Stop: 11/06/16 11:16 Last Admin: 10/09/16 17:42 Dose: 1 cap Fluconazole (Diflucan) 100 mg PO DAILY [facility] Last Admin: 10/13/16 09:18 Dose: 100 mg Gabapentin (Neurontin) 300 mg PO TID [facility] Last Admin: 10/13/16 09:23 Dose: 300 mg Hydrocortisone (Anusol-Hc) 1 applic [place] BID [facility] Last Admin: 10/12/16 17:21 Dose: Not Given Hydromorphone HCl (Dilaudid) 1 mg IVP Q3H PRN PRN Reason: Pain, severe (8-10) Last Admin: 10/13/16 09:34 Dose: 1 mg Amikacin Sulfate 250 mg/ (Sodium Chloride) 101 mls @ 100.609 mls/hr [place] [facility] [place] Last Admin: 10/11/16 13:23 Dose: 100.609 mls/hr Meropenem 500 mg/ Sodium (Chloride) 100 mls @ 100 mls/hr IVPB DAILY@0100 [facility] Last Admin: 10/13/16 01:25 Dose: 100 mls/hr Piperacillin Sod/Tazobactam (Sod 2.25 gm/ Sodium Chloride) 100 mls @ 100 mls/ hr IVPB Q12@0600,1800 [facility] Last Admin: 10/13/16 05:49 Dose: 100 mls/hr Sodium Chloride (Sodium Chloride 0.9%) 1,000 mls @ 10 mls/hr IV .Q24H [facility] Last Admin: 10/12/16 18:59 Dose: Not Given Linezolid (Zyvox 600mg/300ml D5w) 600 mg in 300 mls @ 300 mls/hr IVPB Q12@0800, 2000 [facility] Last Admin: 10/13/16 09:34 Dose: 300 mls/hr Insulin Detemir (Levemir) 30 units SC HS [facility] Last Admin: 10/12/16 22:29 Dose: 30 units Insulin Human Lispro (Humalog) 8 units SC AC [facility] Last Admin: 10/13/16 09:20 Dose: 8 units Lidocaine (Lidoderm) 1 ea TD DAILY [facility] Last Admin: 10/13/16 09:21 Dose: 1 ea Nystatin (Mycostatin Oint) 1 applic TOP TID [facility] Last Admin: 10/13/16 09:22 Dose: 1 applic Ondansetron HCl (Zofran Inj) 4 mg IVP Q6 PRN PRN Reason: Nausea/Vomiting Last Admin: 09/19/16 10:26 Dose: 4 mg Oxycodone/Acetaminophen (Percocet 5/325 Mg Tab) 1 tab PO Q4 PRN PRN Reason: Pain, moderate (4-7) Stop: 10/14/16 08:54 Pantoprazole Sodium (Protonix Ec Tab) 40 mg PO DAILY [facility] Last Admin: 10/13/16 09:23 Dose: 40 mg Sevelamer HCl (Renagel) 1,600 mg PO TID [facility] Last Admin: 10/13/16 09:23 Dose: 1,600 mg Topiramate (Topamax) 50 mg PO BID [facility] Last Admin: 10/13/16 09:24 Dose: 50 mg Vitamin B Complex/Vit C/Folic Acid (Nephro-Ajay) 1 tab PO DAILY [facility] Last Admin: 10/13/16 09:23 Dose: 1 tab - Labs Labs: 10/11/16 07:00 10/11/16 07:00 PT 12.0 SECONDS (9.6-11.2) H 10/07/16 06:30 INR 1.15 (0.92-1.08) H 10/07/16 06:30 APTT 32.3 SECONDS (23.3-32.5) 10/07/16 06:30 - Constitutional Appears: No Acute Distress - Head Exam Head Exam: ATRAUMATIC, NORMAL INSPECTION, NORMOCEPHALIC - Eye Exam Eye Exam: Normal appearance - Respiratory Exam Respiratory Exam: NORMAL BREATHING PATTERN. absent: Respiratory Distress - Extremities Exam Additional comments: sp B/L BKA, R stump dressing in place is C D I, with immobilizer - Neurological Exam Neurological Exam: Alert, Oriented x3 - Psychiatric Exam Psychiatric exam: Normal Affect, Normal Mood - Skin Skin Exam: Dry, Intact Assessment and Plan - Assessment and Plan (Free Text) Assessment: 46F POD#12 s/p right BKA Daily dressings w/ Wound Care Care as per primary team Cont. PT/OT Will follow d/w Dr Easton Desai PGY2
[2016-10-13] MEDS: Hydrocortisone 2.5% (Rectal) CREAM PR SCH ×2 (14:09→18:04)
--- NOTE | 2016-10-13 14:41 | CP.PCM.PN ---
Subjective - Date & Time of Evaluation Date of Evaluation: 10/13/16 Time of Evaluation: 14:39 - Subjective Subjective: Pt is afebrile and appears to be in good spirits today. She no longer has vaginal bleeding, and her HGb is stable. Will check the Hgb tomorrow prior to the dialysis. Objective - Vital Signs/Intake and Output Vital Signs (last 24 hours): Temp Pulse Resp BP Pulse Ox 97.5 F L 62 20 141/58 L 97 10/13/16 08:19 10/13/16 08:19 10/13/16 08:19 10/13/16 08:19 10/13/16 08:19 - Medications Medications: Current Medications Acetaminophen (Tylenol 325mg Tab) 650 mg PO Q4 PRN PRN Reason: Fever >100.4 F Last Admin: 10/02/16 16:27 Dose: 650 mg Acetaminophen (Tylenol 325mg Tab) 650 mg PO Q4 PRN PRN Reason: Pain, moderate (4-7) Last Admin: 09/16/16 22:34 Dose: 650 mg Albuterol Sulfate (Albuterol 0.083% Inhal Barbie (2.5 Mg/3 Ml) Ud) 2.5 mg INH RQ4 PRN PRN Reason: Shortness of Breath Albuterol/Ipratropium (Duoneb 3 Mg/0.5 Mg (3 Ml) Ud) 3 ml INH RQ4 PRN PRN Reason: Shortness of Breath Apixaban (Eliquis) 5 mg PO BID [facility] PRN Reason: Protocol Last Admin: 10/13/16 09:19 Dose: 5 mg Aspirin (Ecotrin) 81 mg PO DAILY [facility] Last Admin: 10/13/16 09:18 Dose: 81 mg Atorvastatin Calcium (Lipitor) 40 mg PO DAILY [facility] Last Admin: 10/13/16 09:22 Dose: 40 mg Benzonatate (Tessalon Perles) 200 mg PO TID PRN PRN Reason: Cough Last Admin: 10/02/16 14:07 Dose: 200 mg Cinacalcet (Sensipar) 30 mg PO DAILY [facility] Last Admin: 10/13/16 09:23 Dose: 30 mg Diphenhydramine HCl (Benadryl) 25 mg PO Q6 PRN PRN Reason: Itching / Pruritus Epoetin Tha (Procrit) 20,000 unit IV MWF [facility] Last Admin: 10/11/16 13:22 Dose: 20,000 unit Ergocalciferol (Drisdol 50,000 Intl Units Cap) 1 cap PO Q7D [facility] Stop: 11/06/16 11:16 Last Admin: 10/09/16 17:42 Dose: 1 cap Fluconazole (Diflucan) 100 mg PO DAILY [facility] Last Admin: 10/13/16 09:18 Dose: 100 mg Gabapentin (Neurontin) 300 mg PO TID [facility] Last Admin: 10/13/16 14:05 Dose: 300 mg Hydrocortisone (Anusol-Hc) 1 applic [place] BID [facility] Last Admin: 10/13/16 14:09 Dose: 1 applic Hydromorphone HCl (Dilaudid) 1 mg IVP Q3H PRN PRN Reason: Pain, severe (8-10) Last Admin: 10/13/16 09:34 Dose: 1 mg Amikacin Sulfate 250 mg/ (Sodium Chloride) 101 mls @ 100.609 mls/hr IVPB [facility] [place] Last Admin: 10/11/16 13:23 Dose: 100.609 mls/hr Meropenem 500 mg/ Sodium (Chloride) 100 mls @ 100 mls/hr IVPB DAILY@0100 [facility] Last Admin: 10/13/16 01:25 Dose: 100 mls/hr Piperacillin Sod/Tazobactam (Sod 2.25 gm/ Sodium Chloride) 100 mls @ 100 mls/ hr IVPB Q12@0600,1800 [facility] Last Admin: 10/13/16 05:49 Dose: 100 mls/hr Sodium Chloride (Sodium Chloride 0.9%) 1,000 mls @ 10 mls/hr IV .Q24H [facility] Last Admin: 10/12/16 18:59 Dose: Not Given Linezolid (Zyvox 600mg/300ml D5w) 600 mg in 300 mls @ 300 mls/hr IVPB Q12@0800, 2000 [facility] Last Admin: 10/13/16 09:34 Dose: 300 mls/hr Insulin Detemir (Levemir) 30 units SC HS [facility] Last Admin: 10/12/16 22:29 Dose: 30 units Insulin Human Lispro (Humalog) 8 units SC AC [facility] Last Admin: 10/13/16 14:04 Dose: 8 units Lidocaine (Lidoderm) 1 ea TD DAILY [facility] Last Admin: 10/13/16 09:21 Dose: 1 ea Nystatin (Mycostatin Oint) 1 applic TOP TID [facility] Last Admin: 10/13/16 14:04 Dose: 1 applic Ondansetron HCl (Zofran Inj) 4 mg IVP Q6 PRN PRN Reason: Nausea/Vomiting Last Admin: 09/19/16 10:26 Dose: 4 mg Oxycodone/Acetaminophen (Percocet 5/325 Mg Tab) 1 tab PO Q4 PRN PRN Reason: Pain, moderate (4-7) Stop: 10/14/16 08:54 Pantoprazole Sodium (Protonix Ec Tab) 40 mg PO DAILY [facility] Last Admin: 10/13/16 09:23 Dose: 40 mg Sevelamer HCl (Renagel) 1,600 mg PO TID [facility] Last Admin: 10/13/16 14:05 Dose: 1,600 mg Topiramate (Topamax) 50 mg PO BID [facility] Last Admin: 10/13/16 09:24 Dose: 50 mg Vitamin B Complex/Vit C/Folic Acid (Nephro-Ajay) 1 tab PO DAILY [facility] Last Admin: 10/13/16 09:23 Dose: 1 tab - Labs Labs: 10/11/16 07:00 10/11/16 07:00 PT 12.0 SECONDS (9.6-11.2) H 10/07/16 06:30 INR 1.15 (0.92-1.08) H 10/07/16 06:30 APTT 32.3 SECONDS (23.3-32.5) 10/07/16 06:30
--- NOTE | 2016-10-13 15:44 | CP.PCM.PN ---
Subjective - Date & Time of Evaluation Date of Evaluation: 10/13/16 Time of Evaluation: 15:40 - Subjective Subjective: As noted by Dr. Andrew Shepard, patient is in better spirits. Scant vaginal bleeding. Back on Eliquis and aspirin. Less pain right BK residual limb. Dressing intact and is to be changed by wound care team only tomorrow. To cotinue on 4 iv antibiotics for now plus po fluconazole based on previous osteomyelitis of the foot and based on previous history of hand osteomyelitis. DM controlled. Insulin orders per Dr. Ambrose. Recommendations by Nell Steward RD, noted and agree to these changes. Cleveland Mckeon to contact [employer] for adjustments to new left Bk prosthesis so that patient can proceed with further rehab using the left leg as a pivot. Of cours, R residual limb must heal much more before we can consider prosthesis for this leg. Blood work to be done tomorrow at time of dialysis: CBC, CMP, amikacin level. Objective - Vital Signs/Intake and Output Vital Signs (last 24 hours): Temp Pulse Resp BP Pulse Ox 97.5 F L 62 20 141/58 L 97 10/13/16 08:19 10/13/16 08:19 10/13/16 08:19 10/13/16 08:19 10/13/16 08:19 - Medications Medications: Current Medications Acetaminophen (Tylenol 325mg Tab) 650 mg PO Q4 PRN PRN Reason: Fever >100.4 F Last Admin: 10/02/16 16:27 Dose: 650 mg Acetaminophen (Tylenol 325mg Tab) 650 mg PO Q4 PRN PRN Reason: Pain, moderate (4-7) Last Admin: 09/16/16 22:34 Dose: 650 mg Albuterol Sulfate (Albuterol 0.083% Inhal Barbie (2.5 Mg/3 Ml) Ud) 2.5 mg INH RQ4 PRN PRN Reason: Shortness of Breath Albuterol/Ipratropium (Duoneb 3 Mg/0.5 Mg (3 Ml) Ud) 3 ml INH RQ4 PRN PRN Reason: Shortness of Breath Apixaban (Eliquis) 5 mg PO BID [facility] PRN Reason: Protocol Last Admin: 10/13/16 09:19 Dose: 5 mg Aspirin (Ecotrin) 81 mg PO DAILY [facility] Last Admin: 10/13/16 09:18 Dose: 81 mg Atorvastatin Calcium (Lipitor) 40 mg PO DAILY [facility] Last Admin: 10/13/16 09:22 Dose: 40 mg Benzonatate (Tessalon Perles) 200 mg PO TID PRN PRN Reason: Cough Last Admin: 10/02/16 14:07 Dose: 200 mg Cinacalcet (Sensipar) 30 mg PO DAILY [facility] Last Admin: 10/13/16 09:23 Dose: 30 mg Diphenhydramine HCl (Benadryl) 25 mg PO Q6 PRN PRN Reason: Itching / Pruritus Epoetin Tha (Procrit) 20,000 [facility] Last Admin: 10/11/16 13:22 Dose: 20,000 unit Ergocalciferol (Drisdol 50,000 Intl Units Cap) 1 cap PO Q7D [facility] Stop: 11/06/16 11:16 Last Admin: 10/09/16 17:42 Dose: 1 cap Fluconazole (Diflucan) 100 mg PO DAILY [facility] Last Admin: 10/13/16 09:18 Dose: 100 mg Gabapentin (Neurontin) 300 mg PO TID [facility] Last Admin: 10/13/16 14:05 Dose: 300 mg Hydrocortisone (Anusol-Hc) 1 applic [place] BID [facility] Last Admin: 10/13/16 14:09 Dose: 1 applic Hydromorphone HCl (Dilaudid) 1 mg IVP Q3H PRN PRN Reason: Pain, severe (8-10) Last Admin: 10/13/16 09:34 Dose: 1 mg Amikacin Sulfate 250 mg/ (Sodium Chloride) 101 mls @ 100.609 mls/hr [place] [facility] [place] Admin: 10/11/16 13:23 Dose: 100.609 mls/hr Meropenem 500 mg/ Sodium (Chloride) 100 mls @ 100 mls/hr IVPB DAILY@0100 [facility] Last Admin: 10/13/16 01:25 Dose: 100 mls/hr Piperacillin Sod/Tazobactam (Sod 2.25 gm/ Sodium Chloride) 100 mls @ 100 mls/ hr IVPB Q12@0600,1800 [facility] Last Admin: 10/13/16 05:49 Dose: 100 mls/hr Sodium Chloride (Sodium Chloride 0.9%) 1,000 mls @ 10 mls/hr IV .Q24H [facility] Last Admin: 10/12/16 18:59 Dose: Not Given Linezolid (Zyvox 600mg/300ml D5w) 600 mg in 300 mls @ 300 mls/hr IVPB Q12@0800, 2000 [facility] Last Admin: 10/13/16 09:34 Dose: 300 mls/hr Insulin Detemir (Levemir) 30 units SC HS [facility] Last Admin: 10/12/16 22:29 Dose: 30 units Insulin Human Lispro (Humalog) 8 units SC AC [facility] Last Admin: 10/13/16 14:04 Dose: 8 units Lidocaine (Lidoderm) 1 ea TD DAILY [facility] Last Admin: 10/13/16 09:21 Dose: 1 ea Nystatin (Mycostatin Oint) 1 applic TOP TID [facility] Last Admin: 10/13/16 14:04 Dose: 1 applic Ondansetron HCl (Zofran Inj) 4 mg IVP Q6 PRN PRN Reason: Nausea/Vomiting Last Admin: 09/19/16 10:26 Dose: 4 mg Oxycodone/Acetaminophen (Percocet 5/325 Mg Tab) 1 tab PO Q4 PRN PRN Reason: Pain, moderate (4-7) Stop: 10/14/16 08:54 Pantoprazole Sodium (Protonix Ec Tab) 40 mg PO DAILY [facility] Last Admin: 10/13/16 09:23 Dose: 40 mg Sevelamer HCl (Renagel) 1,600 mg PO TID [facility] Last Admin: 10/13/16 14:05 Dose: 1,600 mg Topiramate (Topamax) 50 mg PO BID [facility] Last Admin: 10/13/16 09:24 Dose: 50 mg Vitamin B Complex/Vit C/Folic Acid (Nephro-Ajay) 1 tab PO DAILY [facility] Last Admin: 10/13/16 09:23 Dose: 1 tab - Labs Labs: 10/11/16 07:00 10/11/16 07:00 PT 12.0 SECONDS (9.6-11.2) H 10/07/16 06:30 INR 1.15 (0.92-1.08) H 10/07/16 06:30 APTT 32.3 SECONDS (23.3-32.5) 10/07/16 06:30 - Constitutional Appears: No Acute Distress - Head Exam Head Exam: NORMAL INSPECTION - Eye Exam Eye Exam: Normal appearance - ENT Exam ENT Exam: Mucous Membranes Moist - Neck Exam Neck Exam: Normal Inspection - Respiratory Exam Respiratory Exam: Clear to Ausculation Bilateral, NORMAL BREATHING PATTERN - Cardiovascular Exam Cardiovascular Exam: REGULAR RHYTHM, +S1, +S2 - GI/Abdominal Exam GI & Abdominal Exam: Soft, Normal Bowel Sounds - Extremities Exam Additional comments: Dressing right BK residual limb intact and dry. - Back Exam Back Exam: NORMAL INSPECTION Assessment and Plan (1) Status post below knee amputation of right lower extremity Status: Acute (2) Osteomyelitis of ankle or foot Status: Acute (3) ESRD (end stage renal disease) on dialysis Status: Chronic (4) DM type 2 (diabetes mellitus, type 2) Status: Chronic (5) Coagulopathy Status: Chronic (6) Anemia, blood loss Status: Acute (7) Peripheral arterial occlusive disease Status: Chronic (8) Menorrhagia Status: Acute
--- NOTE | 2016-10-13 16:48 | CP.PCM.PN ---
Subjective - Date & Time of Evaluation Date of Evaluation: 10/13/16 Time of Evaluation: 16:47 - Subjective Subjective: Follow up Nephrology Consultation Note Assessment/Plan: End stage renal disease on hemodialysis (MWF) via permacath: Will plan for dialysis on friday. No Acute need today. continue with Nephrovite 1 tab/day. Anemia: PRBC as needed. On MARTHA as Epogen 20,000 with HD. last Hb 9.2 TSAT 73% and ferritin >1000. Hyperphosphatemia: continue with current meds as renagel 1600 TID last phos level 5.0 Secondary hyperparathyroidism with Vit D Deficiency: continue with sensipar 30 mg/day. Last PTH level 423. Vit D <12. supplement with ergo 50,000 weekly x 8 doses Hypertension controlled: BP mostly on low side Glycemic control, Dialysis consistent diet Further work up/management as per primary team. 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 Dose meds/antibiotics for ESRD status. Avoid fleets enema/magnesium based laxatives. Thanks for allowing me to participate in care of your patient. Will follow patient with you. Please call if any Qs Dr Hernan Andino Office: [phone] Subjective: Noted events overnight. Denies chest pain, palpitation, shortness of breath. s/p Rt BKA, s/p vaginal D&C, endometrial ablation. Physical Examination: General Appearance: Comfortable, in no acute respiratory distress, co- operative. obese Vitals reviewed and noted as below Lungs: Normal respiratory rate/effort. Breath sounds bilateral equal and clear Heart: Normal rate. s1s2 normal. No rub or gallop. Extremities: s/p Rt BKA, hx of left BKA. Neurological: Patient is alert, awake and oriented to person, place and time. No focal deficit. Strength bilateral appropriate and equal Skin: Warm and dry. Normal turgor. No rash. Palpitation: Normal elasticity for age Abdomen: Abdomen is soft. Bowel sounds +. There is no abdominal tenderness, no guarding/rigidity or organomegaly. she is obese : kidney or bladder not palpable Access: permacath Labs/imaging reviewed. Past medical history, past surgical history, family history, social history, allergy reviewed Objective - Vital Signs/Intake and Output Vital Signs (last 24 hours): Temp Pulse Resp BP Pulse Ox 97.5 F L 62 20 141/58 L 97 10/13/16 08:19 10/13/16 08:19 10/13/16 08:19 10/13/16 08:19 10/13/16 08:19 - Medications Medications: Current Medications Acetaminophen (Tylenol 325mg Tab) 650 mg PO Q4 PRN PRN Reason: Fever >100.4 F Last Admin: 10/02/16 16:27 Dose: 650 mg Acetaminophen (Tylenol 325mg Tab) 650 mg PO Q4 PRN PRN Reason: Pain, moderate (4-7) Last Admin: 09/16/16 22:34 Dose: 650 mg Albuterol Sulfate (Albuterol 0.083% Inhal Barbie (2.5 Mg/3 Ml) Ud) 2.5 mg INH RQ4 PRN PRN Reason: Shortness of Breath Albuterol/Ipratropium (Duoneb 3 Mg/0.5 Mg (3 Ml) Ud) 3 ml INH RQ4 PRN PRN Reason: Shortness of Breath Apixaban (Eliquis) 5 mg PO BID [facility] PRN Reason: Protocol Last Admin: 10/13/16 09:19 Dose: 5 mg Aspirin (Ecotrin) 81 mg PO DAILY [facility] Last Admin: 10/13/16 09:18 Dose: 81 mg Atorvastatin Calcium (Lipitor) 40 mg PO DAILY [facility] Last Admin: 10/13/16 09:22 Dose: 40 mg Benzonatate (Tessalon Perles) 200 mg PO TID PRN PRN Reason: Cough Last Admin: 10/02/16 14:07 Dose: 200 mg Cinacalcet (Sensipar) 30 mg PO DAILY [facility] Last Admin: 10/13/16 09:23 Dose: 30 mg Diphenhydramine HCl (Benadryl) 25 mg PO Q6 PRN PRN Reason: Itching / Pruritus Epoetin Tha (Procrit) 20,000 unit IV MWF [facility] Last Admin: 10/11/16 13:22 Dose: 20,000 unit Ergocalciferol (Drisdol 50,000 Intl Units Cap) 1 cap PO Q7D [facility] Stop: 11/06/16 11:16 Last Admin: 10/09/16 17:42 Dose: 1 cap Fluconazole (Diflucan) 100 mg PO DAILY [facility] Last Admin: 10/13/16 09:18 Dose: 100 mg Gabapentin (Neurontin) 300 mg PO TID [facility] Last Admin: 10/13/16 14:05 Dose: 300 mg Hydrocortisone (Anusol-Hc) 1 applic [place] BID [facility] Last Admin: 10/13/16 14:09 Dose: 1 applic Hydromorphone HCl (Dilaudid) 1 mg IVP Q3H PRN PRN Reason: Pain, severe (8-10) Last Admin: 10/13/16 09:34 Dose: 1 mg Amikacin Sulfate 250 mg/ (Sodium Chloride) 101 mls @ 100.609 mls/hr IVPB MWF [facility] Last Admin: 10/11/16 13:23 Dose: 100.609 mls/hr Meropenem 500 mg/ Sodium (Chloride) 100 mls @ 100 mls/hr IVPB DAILY@0100 [facility] Last Admin: 10/13/16 01:25 Dose: 100 mls/hr Piperacillin Sod/Tazobactam (Sod 2.25 gm/ Sodium Chloride) 100 mls @ 100 mls/ hr IVPB Q12@0600,1800 [facility] Last Admin: 10/13/16 05:49 Dose: 100 mls/hr Sodium Chloride (Sodium Chloride 0.9%) 1,000 mls @ 10 mls/hr IV .Q24H [facility] Last Admin: 10/12/16 18:59 Dose: Not Given Linezolid (Zyvox 600mg/300ml D5w) 600 mg in 300 mls @ 300 mls/hr IVPB Q12@0800, 2000 [facility] Last Admin: 10/13/16 09:34 Dose: 300 mls/hr Insulin Detemir (Levemir) 30 units SC HS [facility] Last Admin: 10/12/16 22:29 Dose: 30 units Insulin Human Lispro (Humalog) 8 units SC AC [facility] Last Admin: 10/13/16 14:04 Dose: 8 units Lidocaine (Lidoderm) 1 ea TD DAILY [facility] Last Admin: 10/13/16 09:21 Dose: 1 ea Nystatin (Mycostatin Oint) 1 applic TOP TID [facility] Last Admin: 10/13/16 14:04 Dose: 1 applic Ondansetron HCl (Zofran Inj) 4 mg IVP Q6 PRN PRN Reason: Nausea/Vomiting Last Admin: 09/19/16 10:26 Dose: 4 mg Oxycodone/Acetaminophen (Percocet 5/325 Mg Tab) 1 tab PO Q4 PRN PRN Reason: Pain, moderate (4-7) Stop: 10/14/16 08:54 Pantoprazole Sodium (Protonix Ec Tab) 40 mg PO DAILY [facility] Last Admin: 10/13/16 09:23 Dose: 40 mg Sevelamer HCl (Renagel) 1,600 mg PO TID [facility] Last Admin: 10/13/16 14:05 Dose: 1,600 mg Topiramate (Topamax) 50 mg PO BID [facility] Last Admin: 10/13/16 09:24 Dose: 50 mg Vitamin B Complex/Vit C/Folic Acid (Nephro-Ajay) 1 tab PO DAILY [facility] Last Admin: 10/13/16 09:23 Dose: 1 tab - Labs Labs: 10/11/16 07:00 10/11/16 07:00 PT 12.0 SECONDS (9.6-11.2) H 10/07/16 06:30 INR 1.15 (0.92-1.08) H 10/07/16 06:30 APTT 32.3 SECONDS (23.3-32.5) 10/07/16 06:30
--- NOTE | 2016-10-13 17:04 | CP.PCM.PN ---
Subjective - Date & Time of Evaluation Date of Evaluation: 10/13/16 Time of Evaluation: 17:05 - Subjective Subjective: I D NOTE HAD VAGINAL D& C ,ENDOMETRIAL ABLATION WILL DISCUSS CUTTING BACK ON ANTIBIOTICS C Objective - Vital Signs/Intake and Output Vital Signs (last 24 hours): Temp Pulse Resp BP Pulse Ox 97.5 F L 62 20 141/58 L 97 10/13/16 08:19 10/13/16 08:19 10/13/16 08:19 10/13/16 08:19 10/13/16 08:19 - Medications Medications: Current Medications Acetaminophen (Tylenol 325mg Tab) 650 mg PO Q4 PRN PRN Reason: Fever >100.4 F Last Admin: 10/02/16 16:27 Dose: 650 mg Acetaminophen (Tylenol 325mg Tab) 650 mg PO Q4 PRN PRN Reason: Pain, moderate (4-7) Last Admin: 09/16/16 22:34 Dose: 650 mg Albuterol Sulfate (Albuterol 0.083% Inhal Barbie (2.5 Mg/3 Ml) Ud) 2.5 mg INH RQ4 PRN PRN Reason: Shortness of Breath Albuterol/Ipratropium (Duoneb 3 Mg/0.5 Mg (3 Ml) Ud) 3 ml INH RQ4 PRN PRN Reason: Shortness of Breath Apixaban (Eliquis) 5 mg PO BID [facility] PRN Reason: Protocol Last Admin: 10/13/16 09:19 Dose: 5 mg Aspirin (Ecotrin) 81 mg PO DAILY [facility] Last Admin: 10/13/16 09:18 Dose: 81 mg Atorvastatin Calcium (Lipitor) 40 mg PO DAILY [facility] Last Admin: 10/13/16 09:22 Dose: 40 mg Benzonatate (Tessalon Perles) 200 mg PO TID PRN PRN Reason: Cough Last Admin: 10/02/16 14:07 Dose: 200 mg Cinacalcet (Sensipar) 30 mg PO DAILY [facility] Last Admin: 10/13/16 09:23 Dose: 30 mg Diphenhydramine HCl (Benadryl) 25 mg PO Q6 PRN PRN Reason: Itching / Pruritus Epoetin Tha (Procrit) 20,000 unit IV MWF [facility] Last Admin: 10/11/16 13:22 Dose: 20,000 unit Ergocalciferol (Drisdol 50,000 Intl Units Cap) 1 cap PO Q7D [facility] Stop: 11/06/16 11:16 Last Admin: 10/09/16 17:42 Dose: 1 cap Fluconazole (Diflucan) 100 mg PO DAILY [facility] Last Admin: 10/13/16 09:18 Dose: 100 mg Gabapentin (Neurontin) 300 mg PO TID [facility] Last Admin: 10/13/16 14:05 Dose: 300 mg Hydrocortisone (Anusol-Hc) 1 applic [place] BID [facility] Last Admin: 10/13/16 14:09 Dose: 1 applic Hydromorphone HCl (Dilaudid) 1 mg IVP Q3H PRN PRN Reason: Pain, severe (8-10) Last Admin: 10/13/16 09:34 Dose: 1 mg Amikacin Sulfate 250 mg/ (Sodium Chloride) 101 mls @ 100.609 mls/hr IVPB MWF [facility] Last Admin: 10/11/16 13:23 Dose: 100.609 mls/hr Meropenem 500 mg/ Sodium (Chloride) 100 mls @ 100 mls/hr IVPB DAILY@0100 [facility] Last Admin: 10/13/16 01:25 Dose: 100 mls/hr Piperacillin Sod/Tazobactam (Sod 2.25 gm/ Sodium Chloride) 100 mls @ 100 mls/ hr IVPB Q12@0600,1800 [facility] Last Admin: 10/13/16 05:49 Dose: 100 mls/hr Sodium Chloride (Sodium Chloride 0.9%) 1,000 mls @ 10 mls/hr IV .Q24H [facility] Last Admin: 10/12/16 18:59 Dose: Not Given Linezolid (Zyvox 600mg/300ml D5w) 600 mg in 300 mls @ 300 mls/hr IVPB Q12@0800, 2000 [facility] Last Admin: 10/13/16 09:34 Dose: 300 mls/hr Insulin Detemir (Levemir) 30 units SC HS [facility] Last Admin: 10/12/16 22:29 Dose: 30 units Insulin Human Lispro (Humalog) 8 units SC AC [facility] Last Admin: 10/13/16 14:04 Dose: 8 units Lidocaine (Lidoderm) 1 ea TD DAILY [facility] Last Admin: 10/13/16 09:21 Dose: 1 ea Nystatin (Mycostatin Oint) 1 applic TOP TID [facility] Last Admin: 10/13/16 14:04 Dose: 1 applic Ondansetron HCl (Zofran Inj) 4 mg IVP Q6 PRN PRN Reason: Nausea/Vomiting Last Admin: 09/19/16 10:26 Dose: 4 mg Oxycodone/Acetaminophen (Percocet 5/325 Mg Tab) 1 tab PO Q4 PRN PRN Reason: Pain, moderate (4-7) Stop: 10/14/16 08:54 Pantoprazole Sodium (Protonix Ec Tab) 40 mg PO DAILY [facility] Last Admin: 10/13/16 09:23 Dose: 40 mg Sevelamer HCl (Renagel) 1,600 mg PO TID [facility] Last Admin: 10/13/16 14:05 Dose: 1,600 mg Topiramate (Topamax) 50 mg PO BID [facility] Last Admin: 10/13/16 09:24 Dose: 50 mg Vitamin B Complex/Vit C/Folic Acid (Nephro-Ajay) 1 tab PO DAILY [facility] Last Admin: 10/13/16 09:23 Dose: 1 tab - Labs Labs: 10/11/16 07:00 10/11/16 07:00 PT 12.0 SECONDS (9.6-11.2) H 10/07/16 06:30 INR 1.15 (0.92-1.08) H 10/07/16 06:30 APTT 32.3 SECONDS (23.3-32.5) 10/07/16 06:30
[2016-10-13] MEDS: Sodium Chloride 0.9% 1,000 ML IV SCH (18:13)
[2016-10-13] MEDS: Insulin Detemir 100 Units/ml Inj SC SCH (22:24)
[2016-10-14] MEDS: Meropenem 500 MG in Sodium Chloride 0.9% 100 ML IVPB SCH (00:52)
[2016-10-14] MEDS: HYDROmorphone 0.5 mg/0.5 ml ISec IVP PRN (04:44)
--- NOTE | 2016-10-14 07:26 | CP.PCM.PN ---
<Sarah Chanel - Last Filed: 10/14/16 07:24> Subjective - Date & Time of Evaluation Date of Evaluation: 10/14/16 Time of Evaluation: 07:00 - Subjective Subjective: This is a vascular surgery progress note for Dr. Mccormack: 46 y/o female patient 13 days s/p Right BKA was seen at bedside this morning. Right knee elevated. Patient was resting comfortably in bed. Dressings clean, dry and intact. Pain to Right knee controlled. Denies n/f/v/d/c/sob. Objective - Vital Signs/Intake and Output Vital Signs (last 24 hours): Temp Pulse Resp BP Pulse Ox 98.1 F 106 H 20 138/67 99 10/14/16 01:12 10/14/16 01:12 10/14/16 01:12 10/14/16 01:12 10/14/16 01:12 - Medications Medications: Current Medications Acetaminophen (Tylenol 325mg Tab) 650 mg PO Q4 PRN PRN Reason: Fever >100.4 F Last Admin: 10/02/16 16:27 Dose: 650 mg Acetaminophen (Tylenol 325mg Tab) 650 mg PO Q4 PRN PRN Reason: Pain, moderate (4-7) Last Admin: 09/16/16 22:34 Dose: 650 mg Albuterol Sulfate (Albuterol 0.083% Inhal Barbie (2.5 Mg/3 Ml) Ud) 2.5 mg INH RQ4 PRN PRN Reason: Shortness of Breath Albuterol/Ipratropium (Duoneb 3 Mg/0.5 Mg (3 Ml) Ud) 3 ml INH RQ4 PRN PRN Reason: Shortness of Breath Apixaban (Eliquis) 5 mg PO BID [facility] PRN Reason: Protocol Last Admin: 10/13/16 18:04 Dose: 5 mg Aspirin (Ecotrin) 81 mg PO DAILY [facility] Last Admin: 10/13/16 09:18 Dose: 81 mg Atorvastatin Calcium (Lipitor) 40 mg PO DAILY [facility] Last Admin: 10/13/16 09:22 Dose: 40 mg Benzonatate (Tessalon Perles) 200 mg PO TID PRN PRN Reason: Cough Last Admin: 10/02/16 14:07 Dose: 200 mg Cinacalcet (Sensipar) 30 mg PO DAILY [facility] Last Admin: 10/13/16 09:23 Dose: 30 mg Diphenhydramine HCl (Benadryl) 25 mg PO Q6 PRN PRN Reason: Itching / Pruritus Epoetin Tha (Procrit) 20,000 unit IV MWF [facility] Last Admin: 10/11/16 13:22 Dose: 20,000 unit Ergocalciferol (Drisdol 50,000 Intl Units Cap) 1 cap PO Q7D [facility] Stop: 11/06/16 11:16 Last Admin: 10/09/16 17:42 Dose: 1 cap Fluconazole (Diflucan) 100 mg PO DAILY [facility] Last Admin: 10/13/16 09:18 Dose: 100 mg Gabapentin (Neurontin) 300 mg PO TID [facility] Last Admin: 10/13/16 18:06 Dose: 300 mg Hydrocortisone (Anusol-Hc) 1 applic GA BID [facility] Last Admin: 10/13/16 18:04 Dose: Not Given Hydromorphone HCl (Dilaudid) 1 mg IVP Q3H PRN PRN Reason: Pain, severe (8-10) Last Admin: 10/14/16 04:44 Dose: 1 mg Amikacin Sulfate 250 mg/ (Sodium Chloride) 101 mls @ 100.609 mls[facility] Last Admin: 10/11/16 13:23 Dose: 100.609 mls/hr Meropenem 500 mg/ Sodium (Chloride) 100 mls @ 100 mls/hr IVPB DAILY@0100 [facility] Last Admin: 10/14/16 00:52 Dose: 100 mls/hr Piperacillin Sod/Tazobactam (Sod 2.25 gm/ Sodium Chloride) 100 mls @ 100 mls/ hr IVPB Q12@0600,1800 [facility] Last Admin: 10/14/16 06:15 Dose: 100 mls/hr Sodium Chloride (Sodium Chloride 0.9%) 1,000 mls @ 10 mls/hr IV .Q24H [facility] Last Admin: 10/13/16 18:13 Dose: 10 mls/hr Linezolid (Zyvox 600mg/300ml D5w) 600 mg in 300 mls @ 300 mls/hr IVPB Q12@0800, 2000 [facility] Last Admin: 10/13/16 20:30 Dose: 300 mls/hr Insulin Detemir (Levemir) 30 units SC HS [facility] Last Admin: 10/13/16 22:24 Dose: 30 units Insulin Human Lispro (Humalog) 8 units SC AC [facility] Last Admin: 10/13/16 18:04 Dose: 8 units Lidocaine (Lidoderm) 1 ea TD DAILY [facility] Last Admin: 10/13/16 09:21 Dose: 1 ea Nystatin (Mycostatin Oint) 1 applic TOP TID [facility] Last Admin: 10/13/16 18:05 Dose: 1 applic Ondansetron HCl (Zofran Inj) 4 mg IVP Q6 PRN PRN Reason: Nausea/Vomiting Last Admin: 09/19/16 10:26 Dose: 4 mg Oxycodone/Acetaminophen (Percocet 5/325 Mg Tab) 1 tab PO Q4 PRN PRN Reason: Pain, moderate (4-7) Stop: 10/14/16 08:54 Pantoprazole Sodium (Protonix Ec Tab) 40 mg PO DAILY [facility] Last Admin: 10/13/16 09:23 Dose: 40 mg Sevelamer HCl (Renagel) 1,600 mg PO TID [facility] Last Admin: 10/13/16 18:06 Dose: 1,600 mg Topiramate (Topamax) 50 mg PO BID [facility] Last Admin: 10/13/16 09:24 Dose: 50 mg Vitamin B Complex/Vit C/Folic Acid (Nephro-Ajay) 1 tab PO DAILY [facility] Last Admin: 10/13/16 09:23 Dose: 1 tab - Labs Labs: 10/11/16 07:00 10/11/16 07:00 PT 12.0 SECONDS (9.6-11.2) H 10/07/16 06:30 INR 1.15 (0.92-1.08) H 10/07/16 06:30 APTT 32.3 SECONDS (23.3-32.5) 10/07/16 06:30 - Constitutional Appears: Well, Non-toxic, No Acute Distress - Extremities Exam Additional comments: Dressing to Right knee clean, dry and intact - Neurological Exam Neurological Exam: Alert, Awake, Oriented x3 - Psychiatric Exam Psychiatric exam: Normal Affect, Normal Mood - Skin Skin Exam: Normal Color, Warm Assessment and Plan - Assessment and Plan (Free Text) Assessment: 46F s/p Right BKA POD#13 Plan: - Continue pain control prn - WCX: No growth final - Continue knee immobilizer to R stump - Continue PT/OT - s/p Vaginal D&C - Dressing to be changed today by Woundcare; Betadine, Silvercel, DSD <Raffy Mccormack - Last Filed: 10/14/16 16:13> Objective - Vital Signs/Intake and Output Vital Signs (last 24 hours): Temp Pulse Resp BP Pulse Ox 97.4 F L 59 L 18 129/68 97 10/14/16 07:33 10/14/16 07:33 10/14/16 07:33 10/14/16 07:33 10/14/16 07:33 - Medications Medications: Current Medications Acetaminophen (Tylenol 325mg Tab) 650 mg PO Q4 PRN PRN Reason: Fever >100.4 F Last Admin: 10/02/16 16:27 Dose: 650 mg Acetaminophen (Tylenol 325mg Tab) 650 mg PO Q4 PRN PRN Reason: Pain, moderate (4-7) Last Admin: 09/16/16 22:34 Dose: 650 mg Albuterol Sulfate (Albuterol 0.083% Inhal Barbie (2.5 Mg/3 Ml) Ud) 2.5 mg INH RQ4 PRN PRN Reason: Shortness of Breath Albuterol/Ipratropium (Duoneb 3 Mg/0.5 Mg (3 Ml) Ud) 3 ml INH RQ4 PRN PRN Reason: Shortness of Breath Apixaban (Eliquis) 5 mg PO BID [facility] PRN Reason: Protocol Last Admin: 10/14/16 08:49 Dose: 5 mg Aspirin (Ecotrin) 81 mg PO DAILY [facility] Last Admin: 10/14/16 08:49 Dose: 81 mg Atorvastatin Calcium (Lipitor) 40 mg PO DAILY [facility] Last Admin: 10/14/16 08:51 Dose: 40 mg Benzonatate (Tessalon Perles) 200 mg PO TID PRN PRN Reason: Cough Last Admin: 10/02/16 14:07 Dose: 200 mg Cinacalcet (Sensipar) 30 mg PO DAILY [facility] Last Admin: 10/14/16 08:54 Dose: 30 mg Diphenhydramine HCl (Benadryl) 25 mg PO Q6 PRN PRN Reason: Itching / Pruritus Epoetin Tha (Procrit) 20,000 unit IV MWF [facility] Last Admin: 10/11/16 13:22 Dose: 20,000 unit Ergocalciferol (Drisdol 50,000 Intl Units Cap) 1 cap PO Q7D [facility] Stop: 11/06/16 11:16 Last Admin: 10/09/16 17:42 Dose: 1 cap Fluconazole (Diflucan) 100 mg PO DAILY [facility] Last Admin: 10/14/16 08:48 Dose: 100 mg Gabapentin (Neurontin) 300 mg PO TID [facility] Last Admin: 10/14/16 08:52 Dose: 300 mg Hydrocortisone (Anusol-Hc) 1 applic GA BID [facility] Last Admin: 10/14/16 08:47 Dose: Not Given Hydromorphone HCl (Dilaudid) 1 mg IVP Q3H PRN PRN Reason: Pain, severe (8-10) Last Admin: 10/14/16 14:34 Dose: 1 mg Amikacin Sulfate 250 mg/ (Sodium Chloride) 101 mls @ 100.609 mls/hr IVPB [facility] [place] Last Admin: 10/14/16 14:42 Dose: 100.609 mls/hr Meropenem 500 mg/ Sodium (Chloride) 100 mls @ 100 mls/hr IVPB DAILY@0100 [facility] Last Admin: 10/14/16 00:52 Dose: 100 mls/hr Piperacillin Sod/Tazobactam (Sod 2.25 gm/ Sodium Chloride) 100 mls @ 100 mls/ hr IVPB Q12@0600,1800 [facility] Last Admin: 10/14/16 06:15 Dose: 100 mls/hr Sodium Chloride (Sodium Chloride 0.9%) 1,000 mls @ 10 mls/hr IV .Q24H [facility] Last Admin: 10/13/16 18:13 Dose: 10 mls/hr Linezolid (Zyvox 600mg/300ml D5w) 600 mg in 300 mls @ 300 mls/hr IVPB Q12@0800, 2000 [facility] Last Admin: 10/14/16 08:56 Dose: 300 mls/hr Insulin Detemir (Levemir) 30 units SC HS [facility] Last Admin: 10/13/16 22:24 Dose: 30 units Insulin Human Lispro (Humalog) 8 units SC AC [facility] Last Admin: 10/14/16 07:30 Dose: 8 units Lidocaine (Lidoderm) 1 ea TD DAILY [facility] Last Admin: 10/13/16 09:21 Dose: 1 ea Nystatin (Mycostatin Oint) 1 applic TOP TID [facility] Last Admin: 10/14/16 08:51 Dose: 1 applic Ondansetron HCl (Zofran Inj) 4 mg IVP Q6 PRN PRN Reason: Nausea/Vomiting Last Admin: 09/19/16 10:26 Dose: 4 mg Pantoprazole Sodium (Protonix Ec Tab) 40 mg PO DAILY [facility] Last Admin: 10/14/16 08:52 Dose: 40 mg Sevelamer HCl (Renagel) 1,600 mg PO TID [facility] Last Admin: 10/14/16 08:53 Dose: 1,600 mg Topiramate (Topamax) 50 mg PO BID [facility] Last Admin: 10/14/16 08:55 Dose: 50 mg Vitamin B Complex/Vit C/Folic Acid (Nephro-Ajay) 1 tab PO DAILY [facility] Last Admin: 10/14/16 08:52 Dose: 1 tab - Labs Labs: 10/14/16 13:45 10/14/16 13:45 PT 12.0 SECONDS (9.6-11.2) H 10/07/16 06:30 INR 1.15 (0.92-1.08) H 10/07/16 06:30 APTT 32.3 SECONDS (23.3-32.5) 10/07/16 06:30 Attending/Attestation - Attestation I have personally seen and examined this patient.: Yes I have fully participated in the care of the patient.: Yes Notes (Text): 10/14/16 16:07 Patient seen and examined. Chart reviewed. Overall, patient remained stable. She has been afebrile with stable vitals and normal WBC. She has no systemic signs of infection. Right BKA sonia were removed. There is superficial dehiscence of the skin edges on the medial and lateral aspects of the wound. Skin edges and subcutaneous fat on the lateral aspect of the stump are dusky-looking. There is scant discharge associated with the wound but no krystal purulence. It appears that the process is localized to the superficial tissues and does not penetrate the fascia. I discussed the situation with the patient and recommended right BKA stump washout in the OR with debridement and VAC placement. Patient is agreeable to proceed with this approach.
[2016-10-14] MEDS: Insulin Lispro (humaLOG) 100 Units/ml Inj SC SCH ×3 (07:30→17:12)
--- NOTE | 2016-10-14 08:27 | PN ---
DATE: 10/12/2016 ROOM 663 SUBJECTIVE: This is a 46-year-old female with recent uncontrolled type 2, insulin-dependent ____ H er glucose values are much improved at this time and the latest chemistries showed a BUN of 36, sodiu m 140, potassium 4.2, chloride 100, CO2 27, glucose 128, and creatinine 5.____. So at this time, ___ _ same basal and bolus insulin regimen as given with Levemir given as 30 units subQ at bedtime daily and Humalog given as 8 units subQ t.i.d. before meals ____ we will follow with you. Irene Ambrose MD cc: [id number] TT: 10/12/2016 10:40:56 Confirmation # [id number] Dictation # [id number]
[2016-10-14] MEDS: Hydrocortisone 2.5% (Rectal) CREAM PR SCH ×2 (08:47→17:09)
[2016-10-14] MEDS: Nystatin Ointment TOP SCH ×3 (08:51→17:17)
[2016-10-14] MEDS: Multivitamin Vitamin B Complex (Nephro-Vite) Tab PO SCH (08:52)
[2016-10-14] MEDS: Pantoprazole 40 mg EC Tab PO SCH (08:52)
[2016-10-14] MEDS: Linezolid 600 mg in D5W 300 ml 600 MG/300 ML BAG IVPB SCH (08:56)
[2016-10-14] MEDS: Lidocaine 5% Patch TD SCH (10:00)
--- NOTE | 2016-10-14 10:39 | CP.PCM.PN ---
Subjective - Date & Time of Evaluation Date of Evaluation: 10/14/16 Time of Evaluation: 10:37 - Subjective Subjective: Patient and bed no significant changes reported Patient to have dialysis as scheduled shortly Patient tolerating very well Potassium past 2 mEq Ultrafiltration about 4668-4731 mL Physical exam Chest clear Heart no rubs Abdomen soft Extremity no edema Impression and plan continue hemodialysis and all the medical problem as noted in my previous note. Objective - Vital Signs/Intake and Output Vital Signs (last 24 hours): Temp Pulse Resp BP Pulse Ox 97.4 F L 59 L 18 129/68 97 10/14/16 07:33 10/14/16 07:33 10/14/16 07:33 10/14/16 07:33 10/14/16 07:33 - Medications Medications: Current Medications Acetaminophen (Tylenol 325mg Tab) 650 mg PO Q4 PRN PRN Reason: Fever >100.4 F Last Admin: 10/02/16 16:27 Dose: 650 mg Acetaminophen (Tylenol 325mg Tab) 650 mg PO Q4 PRN PRN Reason: Pain, moderate (4-7) Last Admin: 09/16/16 22:34 Dose: 650 mg Albuterol Sulfate (Albuterol 0.083% Inhal Barbie (2.5 Mg/3 Ml) Ud) 2.5 mg INH RQ4 PRN PRN Reason: Shortness of Breath Albuterol/Ipratropium (Duoneb 3 Mg/0.5 Mg (3 Ml) Ud) 3 ml INH RQ4 PRN PRN Reason: Shortness of Breath Apixaban (Eliquis) 5 mg PO BID [facility] PRN Reason: Protocol Last Admin: 10/14/16 08:49 Dose: 5 mg Aspirin (Ecotrin) 81 mg PO DAILY [facility] Last Admin: 10/14/16 08:49 Dose: 81 mg Atorvastatin Calcium (Lipitor) 40 mg PO DAILY [facility] Last Admin: 10/14/16 08:51 Dose: 40 mg Benzonatate (Tessalon Perles) 200 mg PO TID PRN PRN Reason: Cough Last Admin: 10/02/16 14:07 Dose: 200 mg Cinacalcet (Sensipar) 30 mg PO DAILY [facility] Last Admin: 10/14/16 08:54 Dose: 30 mg Diphenhydramine HCl (Benadryl) 25 mg PO Q6 PRN PRN Reason: Itching / Pruritus Epoetin Tha (Procrit) 20,000 unit IV MWF [facility] Last Admin: 10/11/16 13:22 Dose: 20,000 unit Ergocalciferol (Drisdol 50,000 Intl Units Cap) 1 cap PO Q7D [facility] Stop: 11/06/16 11:16 Last Admin: 10/09/16 17:42 Dose: 1 cap Fluconazole (Diflucan) 100 mg PO DAILY [facility] Last Admin: 10/14/16 08:48 Dose: 100 mg Gabapentin (Neurontin) 300 mg PO TID [facility] Last Admin: 10/14/16 08:52 Dose: 300 mg Hydrocortisone (Anusol-Hc) 1 applic [place] BID [facility] Last Admin: 10/14/16 08:47 Dose: Not Given Hydromorphone HCl (Dilaudid) 1 mg IVP Q3H PRN PRN Reason: Pain, severe (8-10) Last Admin: 10/14/16 09:47 Dose: 1 mg Amikacin Sulfate 250 mg/ (Sodium Chloride) 101 mls @ 100.609 mls/hr IVPB [facility] [place] Last Admin: 10/11/16 13:23 Dose: 100.609 mls/hr Meropenem 500 mg/ Sodium (Chloride) 100 mls @ 100 mls/hr IVPB DAILY@0100 [facility] Last Admin: 10/14/16 00:52 Dose: 100 mls/hr Piperacillin Sod/Tazobactam (Sod 2.25 gm/ Sodium Chloride) 100 mls @ 100 mls/ hr IVPB Q12@0600,1800 [facility] Last Admin: 10/14/16 06:15 Dose: 100 mls/hr Sodium Chloride (Sodium Chloride 0.9%) 1,000 mls @ 10 mls/hr IV .Q24H [facility] Last Admin: 10/13/16 18:13 Dose: 10 mls/hr Linezolid (Zyvox 600mg/300ml D5w) 600 mg in 300 mls @ 300 mls/hr IVPB Q12@0800, 2000 [facility] Last Admin: 10/14/16 08:56 Dose: 300 mls/hr Insulin Detemir (Levemir) 30 units SC HS [facility] Last Admin: 10/13/16 22:24 Dose: 30 units Insulin Human Lispro (Humalog) 8 units SC AC [facility] Last Admin: 10/14/16 07:30 Dose: 8 units Lidocaine (Lidoderm) 1 ea TD DAILY [facility] Last Admin: 10/13/16 09:21 Dose: 1 ea Nystatin (Mycostatin Oint) 1 applic TOP TID [facility] Last Admin: 10/14/16 08:51 Dose: 1 applic Ondansetron HCl (Zofran Inj) 4 mg IVP Q6 PRN PRN Reason: Nausea/Vomiting Last Admin: 09/19/16 10:26 Dose: 4 mg Pantoprazole Sodium (Protonix Ec Tab) 40 mg PO DAILY [facility] Last Admin: 10/14/16 08:52 Dose: 40 mg Sevelamer HCl (Renagel) 1,600 mg PO TID [facility] Last Admin: 10/14/16 08:53 Dose: 1,600 mg Topiramate (Topamax) 50 mg PO BID [facility] Last Admin: 10/14/16 08:55 Dose: 50 mg Vitamin B Complex/Vit C/Folic Acid (Nephro-Ajay) 1 tab PO DAILY [facility] Last Admin: 10/14/16 08:52 Dose: 1 tab - Labs Labs: 10/11/16 07:00 10/11/16 07:00 PT 12.0 SECONDS (9.6-11.2) H 10/07/16 06:30 INR 1.15 (0.92-1.08) H 10/07/16 06:30 APTT 32.3 SECONDS (23.3-32.5) 10/07/16 06:30 Assessment and Plan (1) ESRD (end stage renal disease) Status: Chronic (2) Cellulitis of leg Status: Chronic
[2016-10-14 14:16] LABS: BASO # 0.1 K/uL (0.0-0.2); BASO % 1.1 % (0.0-2.0); EOS # 0.7 K/uL (0.0-0.7); EOS % 7.6 % (0.0-4.0); HEMATOCRIT 31.9 % (34.0-47.0); LYMPH # 1.4 K/uL (1.0-4.3); LYMPH % 15.7 % (20.0-40.0); MEAN CELL VOLUME 91.5 fl (81.0-99.0); MEAN CORPUSCULAR HEMOGLOBIN 29.4 pg (27.0-31.0); MEAN CORPUSCULAR HGB CONC 32.1 g/dL (33.0-37.0); MEAN PLATELET VOLUME 8.6 fl (7.2-11.7); MONO # 0.7 K/uL (0.0-0.8); MONO % 8.1 % (0.0-10.0); NEUT # 5.9 K/uL (1.8-7.0); NEUT % 67.5 % (50.0-75.0); WHITE BLOOD COUNT 8.8 K/uL (4.8-10.8)
[2016-10-14 14:25] LABS: ALB/GLOB RATIO 0.7 (1.0-2.1); BILIRUBIN,TOTAL 0.8 mg/dl (0.2-1.3); CALCIUM 9.6 mg/dL (8.4-10.2); TOTAL PROTEIN 8.9 G/DL (6.3-8.2)
[2016-10-14 14:39] LABS: POTASSIUM 5.1 MMOL/L (3.6-5.0)
--- NOTE | 2016-10-14 14:41 | CP.PCM.PN ---
Subjective - Date & Time of Evaluation Date of Evaluation: 10/14/16 Time of Evaluation: 14:36 - Subjective Subjective: Patient was out of bed in chair for 3+ hours. She is having pain in right residual BK limb at this time. Blood drawn. To have hemodialysis later this afternoon. Dietary order changed as advised by dietitian to 2 g Na, 2 g K, 80 gm protein renal diet. We could not figure out how to restrict the phosphorus. ??? Will ask nephrologists to comment and make any needed changes. Scant vaginal discharge yesterday, but none today. No fevers, cough, dyspnea, or chest pain. Generally her spirits are good. Dr. Lemno's note appreciated. Will discuss antibiotics with him. Also awaiting results when wound care team changes R leg dressing today. Objective - Vital Signs/Intake and Output Vital Signs (last 24 hours): Temp Pulse Resp BP Pulse Ox 97.4 F L 59 L 18 129/68 97 10/14/16 07:33 10/14/16 07:33 10/14/16 07:33 10/14/16 07:33 10/14/16 07:33 - Medications Medications: Current Medications Acetaminophen (Tylenol 325mg Tab) 650 mg PO Q4 PRN PRN Reason: Fever >100.4 F Last Admin: 10/02/16 16:27 Dose: 650 mg Acetaminophen (Tylenol 325mg Tab) 650 mg PO Q4 PRN PRN Reason: Pain, moderate (4-7) Last Admin: 09/16/16 22:34 Dose: 650 mg Albuterol Sulfate (Albuterol 0.083% Inhal Barbie (2.5 Mg/3 Ml) Ud) 2.5 mg INH RQ4 PRN PRN Reason: Shortness of Breath Albuterol/Ipratropium (Duoneb 3 Mg/0.5 Mg (3 Ml) Ud) 3 ml INH RQ4 PRN PRN Reason: Shortness of Breath Apixaban (Eliquis) 5 mg PO BID [facility] PRN Reason: Protocol Last Admin: 10/14/16 08:49 Dose: 5 mg Aspirin (Ecotrin) 81 mg PO DAILY [facility] Last Admin: 10/14/16 08:49 Dose: 81 mg Atorvastatin Calcium (Lipitor) 40 mg PO DAILY [facility] Last Admin: 10/14/16 08:51 Dose: 40 mg Benzonatate (Tessalon Perles) 200 mg PO TID PRN PRN Reason: Cough Last Admin: 10/02/16 14:07 Dose: 200 mg Cinacalcet (Sensipar) 30 mg PO DAILY [facility] Last Admin: 10/14/16 08:54 Dose: 30 mg Diphenhydramine HCl (Benadryl) 25 mg PO Q6 PRN PRN Reason: Itching / Pruritus Epoetin Tha (Procrit) 20,000 unit IV [facility] [place] Last Admin: 10/11/16 13:22 Dose: 20,000 unit Ergocalciferol (Drisdol 50,000 Intl Units Cap) 1 cap PO Q7D [facility] Stop: 11/06/16 11:16 Last Admin: 10/09/16 17:42 Dose: 1 cap Fluconazole (Diflucan) 100 mg PO DAILY [facility] Last Admin: 10/14/16 08:48 Dose: 100 mg Gabapentin (Neurontin) 300 mg PO TID [facility] Last Admin: 10/14/16 08:52 Dose: 300 mg Hydrocortisone (Anusol-Hc) 1 applic [place] BID [facility] Last Admin: 10/14/16 08:47 Dose: Not Given Hydromorphone HCl (Dilaudid) 1 mg IVP Q3H PRN PRN Reason: Pain, severe (8-10) Last Admin: 10/14/16 09:47 Dose: 1 mg Amikacin Sulfate 250 mg/ (Sodium Chloride) 101 mls @ 100.609 mls/hr IVPB [facility] [place] Last Admin: 10/11/16 13:23 Dose: 100.609 mls/hr Meropenem 500 mg/ Sodium (Chloride) 100 mls @ 100 mls/hr IVPB DAILY@0100 [facility] Last Admin: 10/14/16 00:52 Dose: 100 mls/hr Piperacillin Sod/Tazobactam (Sod 2.25 gm/ Sodium Chloride) 100 mls @ 100 mls/ hr IVPB Q12@0600,1800 [facility] Last Admin: 10/14/16 06:15 Dose: 100 mls/hr Sodium Chloride (Sodium Chloride 0.9%) 1,000 mls @ 10 mls/hr IV .Q24H [facility] Last Admin: 10/13/16 18:13 Dose: 10 mls/hr Linezolid (Zyvox 600mg/300ml D5w) 600 mg in 300 mls @ 300 mls/hr IVPB Q12@0800, 2000 [facility] Last Admin: 10/14/16 08:56 Dose: 300 mls/hr Insulin Detemir (Levemir) 30 units SC HS [facility] Last Admin: 10/13/16 22:24 Dose: 30 units Insulin Human Lispro (Humalog) 8 units SC AC [facility] Last Admin: 10/14/16 07:30 Dose: 8 units Lidocaine (Lidoderm) 1 ea TD DAILY [facility] Last Admin: 10/13/16 09:21 Dose: 1 ea Nystatin (Mycostatin Oint) 1 applic TOP TID [facility] Last Admin: 10/14/16 08:51 Dose: 1 applic Ondansetron HCl (Zofran Inj) 4 mg IVP Q6 PRN PRN Reason: Nausea/Vomiting Last Admin: 09/19/16 10:26 Dose: 4 mg Pantoprazole Sodium (Protonix Ec Tab) 40 mg PO DAILY [facility] Last Admin: 10/14/16 08:52 Dose: 40 mg Sevelamer HCl (Renagel) 1,600 mg PO TID [facility] Last Admin: 10/14/16 08:53 Dose: 1,600 mg Topiramate (Topamax) 50 mg PO BID [facility] Last Admin: 10/14/16 08:55 Dose: 50 mg Vitamin B Complex/Vit C/Folic Acid (Nephro-Ajay) 1 tab PO DAILY [facility] Last Admin: 10/14/16 08:52 Dose: 1 tab - Labs Labs: 10/14/16 13:45 10/14/16 13:45 PT 12.0 SECONDS (9.6-11.2) H 10/07/16 06:30 INR 1.15 (0.92-1.08) H 10/07/16 06:30 APTT 32.3 SECONDS (23.3-32.5) 10/07/16 06:30 - Constitutional Appears: No Acute Distress - Head Exam Head Exam: NORMAL INSPECTION - Eye Exam Eye Exam: Normal appearance - ENT Exam ENT Exam: Mucous Membranes Moist - Neck Exam Neck Exam: Normal Inspection - Respiratory Exam Respiratory Exam: Clear to Ausculation Bilateral, NORMAL BREATHING PATTERN - Cardiovascular Exam Cardiovascular Exam: REGULAR RHYTHM, +S1, +S2 - GI/Abdominal Exam GI & Abdominal Exam: Soft - Extremities Exam Additional comments: Dressing intact R BK reidual limb. Knee immobilizer in place. Otherwise OK. - Back Exam Back Exam: NORMAL INSPECTION - Neurological Exam Neurological Exam: Alert, Awake, CN II-XII Intact, Oriented x3 - Skin Skin Exam: Dry, Normal Color, Warm Assessment and Plan (1) Status post below knee amputation of right lower extremity Assessment & Plan: Waiting for healing of surgical wound before making further rehab decisions. To have new left BK prosthesis adjusted so she can use it for pivoting and transfer purposes. Status: Acute (2) Osteomyelitis of ankle or foot Assessment & Plan: Too soon to stop all antibiotics but will discuss with Dr. Lemon. Status: Acute (3) ESRD (end stage renal disease) on dialysis Status: Chronic (4) DM type 2 (diabetes mellitus, type 2) Assessment & Plan: Controlled. Status: Chronic (5) Coagulopathy Status: Chronic (6) Anemia, blood loss Assessment & Plan: Hgb is holding now since bleeding has subsided. Status: Acute (7) Peripheral arterial occlusive disease Status: Chronic (8) Menorrhagia Assessment & Plan: Appears to have been resolved post surgical D & C and endometrial ablation. Will monitor. Status: Acute
--- NOTE | 2016-10-14 16:52 | PN ---
DATE: 10/14/2016 LOCATION: Room 663 SUBJECTIVE: This is a 46-year-old female with recent uncontrolled type 2 insulin-requiring diabetes, now being followed closely postoperatively for metabolic management following a right below-knee amp utation procedure, as noted thereof. LABORATORY DATA: Her glycemic levels are fluctuating, but much improved at this time, and the latest chemistries showed a BUN of 51, sodium 140, potassium 5.1, chloride 103, CO2 21, glucose 178, and cr eatinine 7.4. ASSESSMENT AND PLAN: So, at this time, will continue the same modified basal and bolus insulin regim en to allow for dose equilibration and keep her on the Humalog given as 8 units subcutaneous t.i.d. b efore meals as ordered. Will also continue the Levemir given as 30 units subcutaneous at bedtime derrell ly as given. Will titrate incrementally as indicated to optimize metabolic control. Will follow and advise accordingly. Irene Ambrose MD cc: [id number] TT: 10/14/2016 16:51:47 Confirmation # [id number] Dictation # [id number] amalia
[2016-10-14] MEDS: Insulin Detemir 100 Units/ml Inj SC SCH (22:00)
[2016-10-15] MEDS: Linezolid 600 mg in D5W 300 ml 600 MG/300 ML BAG IVPB SCH ×3 (01:15→20:11)
[2016-10-15] MEDS: Dextrose 5%/0.9% NS 1,000 ML IV SCH ×2 (01:19→20:53)
[2016-10-15] MEDS: Dextrose 5%/0.45% NS 1,000 ML IV SCH ×2 (02:15→15:14)
[2016-10-15] MEDS: Meropenem 500 MG in Sodium Chloride 0.9% 100 ML IVPB SCH (02:15)
--- NOTE | 2016-10-15 08:16 | PN ---
DATE: 10/11/2016 at this time. ranged from 119 to 128 . Her latest chemistries include a BUN of 86, . Irene Ambrose MD cc: [id number] TT: 10/11/2016 18:20:16 Confirmation # [id number] Dictation # [id number] sn
[2016-10-15] MEDS: Hydrocortisone 2.5% (Rectal) CREAM PR SCH ×2 (08:45→17:42)
[2016-10-15] MEDS: Insulin Lispro (humaLOG) 100 Units/ml Inj SC SCH ×3 (08:46→18:49)
[2016-10-15] MEDS: Lidocaine 5% Patch TD SCH (08:47)
[2016-10-15] MEDS: Multivitamin Vitamin B Complex (Nephro-Vite) Tab PO SCH (08:47)
[2016-10-15] MEDS: Pantoprazole 40 mg EC Tab PO SCH (08:47)
[2016-10-15 08:50] LABS: PARTIAL THROMBOPLASTIN TIME 36.6 Seconds (25.6-37.1)
--- NOTE | 2016-10-15 09:56 | CP.PCM.PN ---
Subjective - Date & Time of Evaluation Date of Evaluation: 10/15/16 Time of Evaluation: 09:54 - Subjective Subjective: denies heavy vaginal bleeding only spotting here and there no pelvic pain Objective - Vital Signs/Intake and Output Vital Signs (last 24 hours): Temp Pulse Resp BP Pulse Ox 98.0 F 76 18 142/71 100 10/15/16 07:30 10/15/16 07:30 10/15/16 07:30 10/15/16 07:30 10/15/16 07:30 - Medications Medications: Current Medications Acetaminophen (Tylenol 325mg Tab) 650 mg PO Q4 PRN PRN Reason: Fever >100.4 F Last Admin: 10/02/16 16:27 Dose: 650 mg Acetaminophen (Tylenol 325mg Tab) 650 mg PO Q4 PRN PRN Reason: Pain, moderate (4-7) Last Admin: 09/16/16 22:34 Dose: 650 mg Albuterol Sulfate (Albuterol 0.083% Inhal Barbie (2.5 Mg/3 Ml) Ud) 2.5 mg INH RQ4 PRN PRN Reason: Shortness of Breath Albuterol/Ipratropium (Duoneb 3 Mg/0.5 Mg (3 Ml) Ud) 3 ml INH RQ4 PRN PRN Reason: Shortness of Breath Apixaban (Eliquis) 5 mg PO BID [facility] PRN Reason: Protocol Last Admin: 10/15/16 08:46 Dose: Not Given Aspirin (Ecotrin) 81 mg PO DAILY [facility] Last Admin: 10/14/16 08:49 Dose: 81 mg Atorvastatin Calcium (Lipitor) 40 mg PO DAILY [facility] Last Admin: 10/15/16 08:47 Dose: Not Given Benzonatate (Tessalon Perles) 200 mg PO TID PRN PRN Reason: Cough Last Admin: 10/02/16 14:07 Dose: 200 mg Cinacalcet (Sensipar) 30 mg PO DAILY [facility] Last Admin: 10/15/16 08:47 Dose: Not Given Diphenhydramine HCl (Benadryl) 25 mg PO Q6 PRN PRN Reason: Itching / Pruritus Epoetin Tha (Procrit) 20,000 unit IV MWF [facility] Last Admin: 10/11/16 13:22 Dose: 20,000 unit Ergocalciferol (Drisdol 50,000 Intl Units Cap) 1 cap PO Q7D [facility] Stop: 11/06/16 11:16 Last Admin: 10/09/16 17:42 Dose: 1 cap Fluconazole (Diflucan) 100 mg PO DAILY [facility] Last Admin: 10/15/16 08:45 Dose: Not Given Gabapentin (Neurontin) 300 mg PO TID [facility] Last Admin: 10/15/16 08:47 Dose: Not Given Hydrocortisone (Anusol-Hc) 1 applic [place] BID [facility] Last Admin: 10/15/16 08:45 Dose: Not Given Hydromorphone HCl (Dilaudid) 1 mg IVP Q3H PRN PRN Reason: Pain, severe (8-10) Last Admin: 10/15/16 08:55 Dose: 1 mg Amikacin Sulfate 250 mg/ (Sodium Chloride) 101 mls @ 100.609 mls/hr IVPB MWF [facility] Last Admin: 10/14/16 14:42 Dose: 100.609 mls/hr Meropenem 500 mg/ Sodium (Chloride) 100 mls @ 100 mls/hr IVPB DAILY@0100 [facility] Last Admin: 10/15/16 02:15 Dose: 100 mls/hr Piperacillin Sod/Tazobactam (Sod 2.25 gm/ Sodium Chloride) 100 mls @ 100 mls/ hr IVPB Q12@0600,1800 [facility] Last Admin: 10/15/16 05:55 Dose: 100 mls/hr Sodium Chloride (Sodium Chloride 0.9%) 1,000 mls @ 10 mls/hr IV .Q24H [facility] Last Admin: 10/13/16 18:13 Dose: 10 mls/hr Linezolid (Zyvox 600mg/300ml D5w) 600 mg in 300 mls @ 300 mls/hr IVPB Q12@0800, 2000 [facility] Last Admin: 10/15/16 08:50 Dose: 300 mls/hr Dextrose/Sodium Chloride (Dextrose 5%/0.9% Ns 1000 Ml) 1,000 mls @ 50 mls/hr IV .Q20H [facility] Stop: 10/16/16 23:55 Last Admin: 10/15/16 01:19 Dose: 50 mls/hr Dextrose/Sodium Chloride (Dextrose 5%/0.45% Ns 1000 Ml) 1,000 mls @ 75 mls/hr IV .[id number] [facility] Stop: 10/15/16 18:46 Last Admin: 10/15/16 02:15 Dose: Not Given Insulin Detemir (Levemir) 30 units SC HS [facility] Last Admin: 10/14/16 22:00 Dose: 30 units Insulin Human Lispro (Humalog) 8 units SC AC [facility] Last Admin: 10/15/16 08:46 Dose: Not Given Lidocaine (Lidoderm) 1 ea TD DAILY [facility] Last Admin: 10/15/16 08:47 Dose: Not Given Nystatin (Mycostatin Oint) 1 applic TOP TID [facility] Last Admin: 10/14/16 17:17 Dose: Not Given Ondansetron HCl (Zofran Inj) 4 mg IVP Q6 PRN PRN Reason: Nausea/Vomiting Last Admin: 09/19/16 10:26 Dose: 4 mg Pantoprazole Sodium (Protonix Ec Tab) 40 mg PO DAILY [facility] Last Admin: 10/15/16 08:47 Dose: Not Given Sevelamer HCl (Renagel) 1,600 mg PO TID [facility] Last Admin: 10/15/16 08:47 Dose: Not Given Topiramate (Topamax) 50 mg PO BID [facility] Last Admin: 10/15/16 08:47 Dose: Not Given Vitamin B Complex/Vit C/Folic Acid (Nephro-Ajay) 1 tab PO DAILY [facility] Last Admin: 10/15/16 08:47 Dose: Not Given - Labs Labs: 10/14/16 13:45 10/14/16 13:45 PT 17.6 Seconds (9.8-13.1) H 10/15/16 07:00 INR 1.5 (0.9-1.2) H 10/15/16 07:00 APTT 36.6 Seconds (25.6-37.1) 10/15/16 07:00 - Constitutional Appears: No Acute Distress - Head Exam Head Exam: ATRAUMATIC - Neck Exam Neck Exam: Normal Inspection - Respiratory Exam Respiratory Exam: NORMAL BREATHING PATTERN - GI/Abdominal Exam Additional comments: soft not distended no rebound not tender - Exam Additional comments: no active vaginal bleeding Assessment and Plan - Assessment and Plan (Free Text) Assessment: s/p d/C hysteroscopy and EA doing well Plan: Pending path report and it appears procedure working well
--- NOTE | 2016-10-15 10:02 | RAD ---
PROCEDURE: CHEST RADIOGRAPH, 1 VIEW HISTORY: pre-op eval COMPARISON: 09/21/2016 FINDINGS: LUNGS: No acute infiltrate. Linear scar/ atelectasis at right base. Slight thickening of the minor fissure as on prior examination. PLEURA: No pneumothorax or pleural fluid seen. CARDIOVASCULAR: Right tunneled central venous dialysis catheter. OSSEOUS STRUCTURES: No significant abnormalities. VISUALIZED UPPER ABDOMEN: Normal. OTHER FINDINGS: None. IMPRESSION: Right basilar linear atelectasis/ scar. No other acute abnormality.
--- NOTE | 2016-10-15 10:26 | CP.PCM.PN ---
Subjective - Date & Time of Evaluation Date of Evaluation: 10/15/16 Time of Evaluation: 10:25 - Subjective Subjective: Patient and bed appears to be comfortable Vital signs stable Patient is going for debridement of the right stump at the surgical site As noted by the surgery Patient tolerated hemodialysis well Continue the same management as ordered hemodialysis [facility] Objective - Vital Signs/Intake and Output Vital Signs (last 24 hours): Temp Pulse Resp BP Pulse Ox 98.0 F 76 18 142/71 100 10/15/16 07:30 10/15/16 07:30 10/15/16 07:30 10/15/16 07:30 10/15/16 07:30 - Medications Medications: Current Medications Acetaminophen (Tylenol 325mg Tab) 650 mg PO Q4 PRN PRN Reason: Fever >100.4 F Last Admin: 10/02/16 16:27 Dose: 650 mg Acetaminophen (Tylenol 325mg Tab) 650 mg PO Q4 PRN PRN Reason: Pain, moderate (4-7) Last Admin: 09/16/16 22:34 Dose: 650 mg Albuterol Sulfate (Albuterol 0.083% Inhal Barbie (2.5 Mg/3 Ml) Ud) 2.5 mg INH RQ4 PRN PRN Reason: Shortness of Breath Albuterol/Ipratropium (Duoneb 3 Mg/0.5 Mg (3 Ml) Ud) 3 ml INH RQ4 PRN PRN Reason: Shortness of Breath Apixaban (Eliquis) 5 mg PO BID [facility] PRN Reason: Protocol Last Admin: 10/15/16 08:46 Dose: Not Given Aspirin (Ecotrin) 81 mg PO DAILY [facility] Last Admin: 10/14/16 08:49 Dose: 81 mg Atorvastatin Calcium (Lipitor) 40 mg PO DAILY [facility] Last Admin: 10/15/16 08:47 Dose: Not Given Benzonatate (Tessalon Perles) 200 mg PO TID PRN PRN Reason: Cough Last Admin: 10/02/16 14:07 Dose: 200 mg Cinacalcet (Sensipar) 30 mg PO DAILY [facility] Last Admin: 10/15/16 08:47 Dose: Not Given Diphenhydramine HCl (Benadryl) 25 mg PO Q6 PRN PRN Reason: Itching / Pruritus Epoetin Tha (Procrit) 20,000 unit IV [facility] [place] Last Admin: 10/11/16 13:22 Dose: 20,000 unit Ergocalciferol (Drisdol 50,000 Intl Units Cap) 1 cap PO Q7D [facility] Stop: 11/06/16 11:16 Last Admin: 10/09/16 17:42 Dose: 1 cap Fluconazole (Diflucan) 100 mg PO DAILY [facility] Last Admin: 10/15/16 08:45 Dose: Not Given Gabapentin (Neurontin) 300 mg PO TID [facility] Last Admin: 10/15/16 08:47 Dose: Not Given Hydrocortisone (Anusol-Hc) 1 applic [place] BID [facility] Last Admin: 10/15/16 08:45 Dose: Not Given Hydromorphone HCl (Dilaudid) 1 mg IVP Q3H PRN PRN Reason: Pain, severe (8-10) Last Admin: 10/15/16 08:55 Dose: 1 mg Amikacin Sulfate 250 mg/ (Sodium Chloride) 101 mls @ 100.609 mls/hr IVPB [facility] [place] Last Admin: 10/14/16 14:42 Dose: 100.609 mls/hr Meropenem 500 mg/ Sodium (Chloride) 100 mls @ 100 mls/hr IVPB DAILY@0100 [facility] Last Admin: 10/15/16 02:15 Dose: 100 mls/hr Piperacillin Sod/Tazobactam (Sod 2.25 gm/ Sodium Chloride) 100 mls @ 100 mls/ hr IVPB Q12@0600,1800 [facility] Last Admin: 10/15/16 05:55 Dose: 100 mls/hr Sodium Chloride (Sodium Chloride 0.9%) 1,000 mls @ 10 mls/hr IV .Q24H [facility] Last Admin: 10/13/16 18:13 Dose: 10 mls/hr Linezolid (Zyvox 600mg/300ml D5w) 600 mg in 300 mls @ 300 mls/hr IVPB Q12@0800, 2000 [facility] Last Admin: 10/15/16 08:50 Dose: 300 mls/hr Dextrose/Sodium Chloride (Dextrose 5%/0.9% Ns 1000 Ml) 1,000 mls @ 50 mls/hr IV .Q20H [facility] Stop: 10/16/16 23:55 Last Admin: 10/15/16 01:19 Dose: 50 mls/hr Dextrose/Sodium Chloride (Dextrose 5%/0.45% Ns 1000 Ml) 1,000 mls @ 75 mls/hr IV .[id number] [facility] Stop: 10/15/16 18:46 Last Admin: 10/15/16 02:15 Dose: Not Given Insulin Detemir (Levemir) 30 units SC HS [facility] Last Admin: 10/14/16 22:00 Dose: 30 units Insulin Human Lispro (Humalog) 8 units SC AC [facility] Last Admin: 10/15/16 08:46 Dose: Not Given Lidocaine (Lidoderm) 1 ea TD DAILY [facility] Last Admin: 10/15/16 08:47 Dose: Not Given Nystatin (Mycostatin Oint) 1 applic TOP TID [facility] Last Admin: 10/14/16 17:17 Dose: Not Given Ondansetron HCl (Zofran Inj) 4 mg IVP Q6 PRN PRN Reason: Nausea/Vomiting Last Admin: 09/19/16 10:26 Dose: 4 mg Pantoprazole Sodium (Protonix Ec Tab) 40 mg PO DAILY [facility] Last Admin: 10/15/16 08:47 Dose: Not Given Sevelamer HCl (Renagel) 1,600 mg PO TID [facility] Last Admin: 10/15/16 08:47 Dose: Not Given Topiramate (Topamax) 50 mg PO BID [facility] Last Admin: 10/15/16 08:47 Dose: Not Given Vitamin B Complex/Vit C/Folic Acid (Nephro-Ajay) 1 tab PO DAILY [facility] Last Admin: 10/15/16 08:47 Dose: Not Given - Labs Labs: 10/14/16 13:45 10/14/16 13:45 PT 17.6 Seconds (9.8-13.1) H 10/15/16 07:00 INR 1.5 (0.9-1.2) H 10/15/16 07:00 APTT 36.6 Seconds (25.6-37.1) 10/15/16 07:00 Assessment and Plan (1) ESRD (end stage renal disease) Status: Chronic (2) Cellulitis of leg Status: Chronic
--- NOTE | 2016-10-15 11:21 | OP ---
PROCEDURE DATE: 10/11/2016 PREOPERATIVE DIAGNOSES: 1. Diabetes mellitus. 2. End-stage renal disease. 3. Severe menometrorrhagia, not responding to medical treatment. POSTOPERATIVE DIAGNOSES: 1. Diabetes mellitus. 2. End-stage renal disease. 3. Severe menometrorrhagia, not responding to medical treatment. 4. Pending pathology report. PROCEDURE PERFORMED: 1. Examination under anesthesia and fractional dilatation and curettage. 2. Hysteroscopy with endometrial ablation, NovaSure procedure. ANESTHESIA USED: General per Dr. Morrison. ESTIMATED BLOOD LOSS: 50 mL. DRAINS USED: None. REPLACEMENTS USED: None. FINDINGS: 1. Cervix appeared closed, no lesion to visualization, closed, posterior. 2U uterus anteverted, mobile, upper limits size, sounded to 7 cm. 3. Hysteroscopy sloughing endometrium, but no other lesion noted. 4. Fractional dilatation and curettage performed without any complications. 5. Endometrial ablation using NovaSure procedure performed without any complications. PROCEDURE: The patient was taken to the operating room and placed on the operating table in a supine position. Following induction of general anesthesia, very carefully the legs were placed in stirrup s on very careful maneuvering and the perineal and genital areas were draped and prepped in the usual sterile manner. At this time, a sterile catheter was then placed into the bladder. No urine was ob tained. Catheter was then removed. Following this, we then proceeded to examine the patient under a nesthesia with some of the above findings. Heavy weighted speculum was then placed in the posterior wall of the vagina, exposing the cervix. The anterior lip of the cervix was then grasped using a sin gle-tooth tenaculum. At this stage, we then proceeded to curette the endocervical canal using a [facility]. Minimal amount of tissue obtained and sent to pathology for proper pathologica l evaluation. At this time, the endocervical canal was then dilated using Hanks dilators in an incre asing size manner. Following this, we then proceeded to introduce into the endocervical canal, a hys teroscope which was then advanced under direct visualization. Upon entering the endometrial cavity, sloughing on the endometrium noted to be present, but no other gross lesion noted. Hysteroscope was then removed under direct visualization and NovaSure procedure was then performed using a NovaSure ap paratus without any complications. The procedure lasted for about 90 seconds and following this, the NovaSure device was then removed. The hysteroscope was again introduced into the endocervical canal and advanced under direct visualization. Blanching of the endometrial cavity noted to be present co nsistent with ablation. Hysteroscope was then removed. Single-tooth tenaculum removed. No bleeding noted from the tenaculum site. The patient tolerated the procedure well. There were no complicatio ns. She was transferred to the recovery room in satisfactory condition. Deejay Larry MD cc: [phone] TT: 10/15/2016 11:20:56 hi
[2016-10-15 11:27] LABS: HEMATOCRIT 28.7 % (34.0-47.0); MEAN CELL VOLUME 90.8 fl (81.0-99.0); MEAN CORPUSCULAR HGB CONC 31.9 g/dL (33.0-37.0); RED CELL DISTRIBUTION WIDTH 18.3 % (11.5-14.5); WHITE BLOOD COUNT 8.6 K/uL (4.8-10.8)
--- NOTE | 2016-10-15 11:30 | CP.PCM.PN ---
Subjective - Date & Time of Evaluation Date of Evaluation: 10/15/16 Time of Evaluation: 11:29 - Subjective Subjective: S/P Right BK amputation - Day 14. There is some dehiscence of the wound at both ends. Later today patient is to have debridement by Dr. Mccormack under anestheia and then application of wound vacuum. She is NPO, but as per Dr. Mccormack the Elaquis and aspirin can be continued. Someone ordered a chest- xray which shows no active disease. Someone ordered an electrocardiogram which is unchanged from previous tracings. Patient is in good spirits, with no chest pain, dyspnea, or cough. She is agreeable to the procedure. S/P Osteomyelitis right ankle. All IV antibiotics (Zyvox, Zosyn, meropenem, and amikacin) plus po fluconazole are to be continued as per my discussion with Dr. Mclean on 10/14/16. DM - controlled on usual insulin regimen. Morning insulin dose held. Patient is on IV D5/0.90NSS at 50 cc/hr to prevent hypoglycemia. No seizures. Will continue on Topamax. Following surgical procedure today, all usual medications and her previously ordered diet are to continue. No further vaginal bleeding. Pathology report on endometrial curretings is negative for malignancy. Objective - Vital Signs/Intake and Output Vital Signs (last 24 hours): Temp Pulse Resp BP Pulse Ox 98.0 F 76 18 142/71 100 10/15/16 07:30 10/15/16 07:30 10/15/16 07:30 10/15/16 07:30 10/15/16 07:30 - Medications Medications: Current Medications Acetaminophen (Tylenol 325mg Tab) 650 mg PO Q4 PRN PRN Reason: Fever >100.4 F Last Admin: 10/02/16 16:27 Dose: 650 mg Acetaminophen (Tylenol 325mg Tab) 650 mg PO Q4 PRN PRN Reason: Pain, moderate (4-7) Last Admin: 09/16/16 22:34 Dose: 650 mg Albuterol Sulfate (Albuterol 0.083% Inhal Barbie (2.5 Mg/3 Ml) Ud) 2.5 mg INH RQ4 PRN PRN Reason: Shortness of Breath Albuterol/Ipratropium (Duoneb 3 Mg/0.5 Mg (3 Ml) Ud) 3 ml INH RQ4 PRN PRN Reason: Shortness of Breath Apixaban (Eliquis) 5 mg PO BID JASPER PRN Reason: Protocol Last Admin: 10/15/16 08:46 Dose: Not Given Aspirin (Ecotrin) 81 mg PO DAILY [facility] Last Admin: 10/14/16 08:49 Dose: 81 mg Atorvastatin Calcium (Lipitor) 40 mg PO DAILY [facility] Last Admin: 10/15/16 08:47 Dose: Not Given Benzonatate (Tessalon Perles) 200 mg PO TID PRN PRN Reason: Cough Last Admin: 10/02/16 14:07 Dose: 200 mg Cinacalcet (Sensipar) 30 mg PO DAILY [facility] Last Admin: 10/15/16 08:47 Dose: Not Given Diphenhydramine HCl (Benadryl) 25 mg PO Q6 PRN PRN Reason: Itching / Pruritus Epoetin Tha (Procrit) 20,000 unit IV [facility] [place] Last Admin: 10/11/16 13:22 Dose: 20,000 unit Ergocalciferol (Drisdol 50,000 Intl Units Cap) 1 cap PO Q7D [facility] Stop: 11/06/16 11:16 Last Admin: 10/09/16 17:42 Dose: 1 cap Fluconazole (Diflucan) 100 mg PO DAILY [facility] Last Admin: 10/15/16 08:45 Dose: Not Given Gabapentin (Neurontin) 300 mg PO TID [facility] Last Admin: 10/15/16 08:47 Dose: Not Given Hydrocortisone (Anusol-Hc) 1 applic IA BID [facility] Last Admin: 10/15/16 08:45 Dose: Not Given Hydromorphone HCl (Dilaudid) 1 mg IVP Q3H PRN PRN Reason: Pain, severe (8-10) Last Admin: 10/15/16 08:55 Dose: 1 mg Amikacin Sulfate 250 mg/ (Sodium Chloride) 101 mls @ 100.609 mls/hr IVPB MWF [facility] Last Admin: 10/14/16 14:42 Dose: 100.609 mls/hr Meropenem 500 mg/ Sodium (Chloride) 100 mls @ 100 mls/hr IVPB DAILY@0100 [facility] Last Admin: 10/15/16 02:15 Dose: 100 mls/hr Piperacillin Sod/Tazobactam (Sod 2.25 gm/ Sodium Chloride) 100 mls @ 100 mls/ hr IVPB Q12@0600,1800 [facility] Last Admin: 10/15/16 05:55 Dose: 100 mls/hr Sodium Chloride (Sodium Chloride 0.9%) 1,000 mls @ 10 mls/hr IV .Q24H [facility] Last Admin: 10/13/16 18:13 Dose: 10 mls/hr Linezolid (Zyvox 600mg/300ml D5w) 600 mg in 300 mls @ 300 mls/hr IVPB Q12@0800, 2000 [facility] Last Admin: 10/15/16 08:50 Dose: 300 mls/hr Dextrose/Sodium Chloride (Dextrose 5%/0.9% Ns 1000 Ml) 1,000 mls @ 50 mls/hr IV .Q20H [facility] Stop: 10/16/16 23:55 Last Admin: 10/15/16 01:19 Dose: 50 mls/hr Dextrose/Sodium Chloride (Dextrose 5%/0.45% Ns 1000 Ml) 1,000 mls @ 75 mls/hr IV .[id number] [facility] Stop: 10/15/16 18:46 Last Admin: 10/15/16 02:15 Dose: Not Given Insulin Detemir (Levemir) 30 units SC HS [facility] Last Admin: 10/14/16 22:00 Dose: 30 units Insulin Human Lispro (Humalog) 8 units SC AC [facility] Last Admin: 10/15/16 08:46 Dose: Not Given Lidocaine (Lidoderm) 1 ea TD DAILY [facility] Last Admin: 10/15/16 08:47 Dose: Not Given Nystatin (Mycostatin Oint) 1 applic TOP TID [facility] Last Admin: 10/14/16 17:17 Dose: Not Given Ondansetron HCl (Zofran Inj) 4 mg IVP Q6 PRN PRN Reason: Nausea/Vomiting Last Admin: 09/19/16 10:26 Dose: 4 mg Pantoprazole Sodium (Protonix Ec Tab) 40 mg PO DAILY [facility] Last Admin: 10/15/16 08:47 Dose: Not Given Sevelamer HCl (Renagel) 1,600 mg PO TID [facility] Last Admin: 10/15/16 08:47 Dose: Not Given Topiramate (Topamax) 50 mg PO BID [facility] Last Admin: 10/15/16 08:47 Dose: Not Given Vitamin B Complex/Vit C/Folic Acid (Nephro-Ajay) 1 tab PO DAILY [facility] Last Admin: 10/15/16 08:47 Dose: Not Given - Labs Labs: 10/15/16 11:23 10/14/16 13:45 PT 17.6 Seconds (9.8-13.1) H 10/15/16 07:00 INR 1.5 (0.9-1.2) H 10/15/16 07:00 APTT 36.6 Seconds (25.6-37.1) 10/15/16 07:00 - Constitutional Appears: No Acute Distress - Head Exam Head Exam: NORMAL INSPECTION - Eye Exam Eye Exam: Normal appearance - ENT Exam ENT Exam: Mucous Membranes Moist - Neck Exam Neck Exam: Normal Inspection Additional comments: R subclavian Permacath intact. - Respiratory Exam Respiratory Exam: Clear to Ausculation Bilateral, NORMAL BREATHING PATTERN - Cardiovascular Exam Cardiovascular Exam: REGULAR RHYTHM, +S1, +S2 - GI/Abdominal Exam GI & Abdominal Exam: Soft - Extremities Exam Additional comments: Dressing dry and intact right BK residual limb. PICC line in place L femoral vein. - Back Exam Back Exam: NORMAL INSPECTION - Neurological Exam Neurological Exam: Alert, Awake, CN II-XII Intact, Oriented x3 - Psychiatric Exam Psychiatric exam: Anxious - Skin Skin Exam: Dry, Normal Color, Warm Assessment and Plan (1) Status post below knee amputation of right lower extremity Assessment & Plan: Day #14 - Some problems with wound healing, for debridement under anesthesia and wound vac application today. To continue all iv antibiotics. Status: Acute (2) Osteomyelitis of ankle or foot Assessment & Plan: Although the lower leg was amputated, there remains risk of bacterial residues. Continue iv antibiotics (total should be 6-8 weeks). Status: Acute (3) ESRD (end stage renal disease) on dialysis Status: Chronic (4) DM type 2 (diabetes mellitus, type 2) Assessment & Plan: Controlled, stable. Status: Chronic (5) Coagulopathy Assessment & Plan: No need to hold anticoagulation for the procedure today. Eliquis can be resumed this evening along with aspirin dose. Status: Chronic (6) Anemia, blood loss Status: Acute (7) Peripheral arterial occlusive disease Status: Chronic (8) Menorrhagia Assessment & Plan: No histological evidence for malignancy. Bleeding has resolved post D & C and EA. Status: Resolved
[2016-10-15 11:42] LABS: ALB/GLOB RATIO 0.7 (1.0-2.1); BILIRUBIN,TOTAL 0.5 mg/dl (0.2-1.3); CALCIUM 8.9 mg/dL (8.4-10.2); POTASSIUM 3.9 MMOL/L (3.6-5.0)
[2016-10-15] MEDS: Nystatin Ointment TOP SCH ×3 (11:53→18:49)
[2016-10-15] MEDS ORDERED: Midazolam 2 MG/2 ML VIAL ONE (12:07)
[2016-10-15] MEDS ORDERED: Rocuronium 10 mg/ml (5 ml) ONE (12:07)
[2016-10-15] MEDS ORDERED: Propofol 10 mg/ml Inj (20 ML) ONE (12:07)
[2016-10-15] MEDS ORDERED: Liquid Adhesive TOP ONE (13:47)
[2016-10-15] MEDS ORDERED: Lactated Ringer's 1,000 ML IV ONE (14:00)
[2016-10-15] MEDS ORDERED: BENZOIN 60 ML TINCTURE TP ONE (14:55)
--- NOTE | 2016-10-15 15:15 | PCM.SURG1 ---
Surgeon's Initial Post Op Note - Surgeon's Notes Surgeon: Dr. Mccormack Security System Technician: Lulu aSnds, PGY1; Ottoniel Chanel DPM Pre-Operative Diagnosis: BKA wound dehiscence of right leg stump Operative Findings: Same Post-Operative Diagnosis: Same Operation Performed: Right stump wound debridement, pulse lavage, and wound vac placement Specimen/Specimens Removed: R leg stump soft tissue Estimated Blood Loss: EBL {In ML}: 25 Date of Surgery/Procedure: 10/15/16 Time of Surgery/Procedure: 14:30
[2016-10-15] MEDS ORDERED: DiphenhydrAMINE 50 mg/ml Inj IVP PRN (15:29)
--- NOTE | 2016-10-15 15:46 | PN ---
DATE: 10/15/2016 ROOM: 663 This is a 46-year-old female with recent uncontrolled type 2 insulin-requiring diabetes, now being fo llowed closely for metabolic management. Her glycemic levels are fluctuating, but much improved at this time and the latest chemistries showed a BUN of 31, sodium 138, potassium 3.9, chloride 99, CO2 26, glucose 163 and creatinine 5.1. She has improved remarkably postoperatively following a right below-knee amputation for an underlying osteomyelitis with severe peripheral arterial vasculopathy. Will continue the same basal and bolus insulin regimen as given with Humalog given as 8 units subQ t.i.d. before meals and Levemir given as 30 units subQ at bedtime daily as ordered. Will titrate incrementally as indicated to optimize metab olic control. Will follow. Irene Ambrose MD cc: [id number] TT: 10/15/2016 15:45:31 Confirmation # [id number] Dictation # [id number] russell
[2016-10-15] MEDS: HYDROmorphone 0.5 mg/0.5 ml ISec IVP PRN ×3 (15:50→16:10)
--- NOTE | 2016-10-15 17:00 | CARD ---
APPROVED REPORT EKG Measurement Heart [id number] <Conclusion> Sinus tachycardia Anterior infarct, age undetermined Prolonged QT Abnormal ECG
[2016-10-15] MEDS: Insulin Detemir 100 Units/ml Inj SC SCH (22:00)
[2016-10-16] MEDS: Meropenem 500 MG in Sodium Chloride 0.9% 100 ML IVPB SCH (00:57)
--- NOTE | 2016-10-16 03:26 | OP ---
PROCEDURE DATE: 10/15/2016 SURGEON: Raffy Mccormack MD PREOPERATIVE DIAGNOSIS: Nonhealing right below-knee amputation stump. POSTOPERATIVE DIAGNOSIS: Nonhealing right below-knee amputation stump. PROCEDURE: Debridement of right below knee amputation stump, pulse lavage irrigation and VAC placeme nt. ANESTHESIA: General LMA. ESTIMATED BLOOD LOSS: 15 mL. SPECIMEN: Tissue culture of right BKA stump, skin and subcutaneous fat. INDICATIONS FOR SURGERY: The patient is a 46-year-old female with multiple severe comorbidities incl uding but not limited to advanced peripheral arterial disease, renal failure on hemodialysis, diabete s type 2, and hypercoagulability secondary to protein C and S deficiency. The patient presented with right Charcot foot with nonhealing heel ulcer, which likely served as a source of systemic infection and sepsis. The patient was spent a number of days in the ICU on multiple broad spectrum antibiotic s, being hemodynamically unstable. Her clinical status improved and by consensus between medical pro fessionals involved in the patient's care and her decision, she underwent right [id number]-png-[id number] amputa tion 2 weeks prior to this report. Secondary to patient's multiple and severe comorbidities along wi th her overall poor state of health, she had difficulty healing right ulskn-sgk-poaa amputation stump . The patient developed superficial dehiscence of skin edges involving the medial and lateral aspect s of her right bcimf-yxn-gaib amputation stump. She did not have obvious signs of surgical wound inf ection. Scant drainage from the right BKA stump was sent for cultures, which were negative. PHYSICAL EXAMINATION: There was a deep wound dehiscence as fascia closure held without separation. In attempt to salvage right [id number]-tdnh amputation and prevent development of infection as well as to facilitate wound healing, I recommend wound debridement, washout and VAC placement to the patient . I clearly explained my rationale for the above-mentioned procedure to the patient. I described th e risks of the operation which included infection, nonhealing wound, wound dehiscence, osteomyelitis and need for additional surgical procedures such as a possible right rqadg-fea-wawm amputation, furth er debridement, possible revision or possible conversion to dqzat-ovx-dces amputation. Given the fac t that the patient is fully anticoagulated because of her hypercoagulability, I emphasized the risk o f bleeding. With risks and benefits of the operation clearly explained to the patient and understood by her, she decided to proceed with surgery and signed informed consent. DESCRIPTION OF PROCEDURE: The patient was examined by me in the pre-anesthesia unit. She was in sat isfactory condition with stable vital signs. She was fully alert and appropriate. Right lower extre mity was marked with my initials as the correct site of surgical procedure. The patient was brought to the operating room and placed on the table. General anesthesia was applied without complications. Surgical timeout was conducted between me and the nursing staff. The identity of the patient as we ll as the correct site of surgical procedure, which was right lower extremity as well as correct surg ical procedure, which was a right BKA stump debridement, washout and VAC placement were all confirmed . The right BKA stump was prepped and draped in sterile fashion. I examined the wound next. The me dial segment of the surgical incision line held together quite well with no wound dehiscence. The me dial aspect of the BKA stump shows skin edge separation. However, subcutaneous fat appeared to be fu lly viable with no signs of necrosis. The lateral aspect of the right below-knee amputation stump; h owever, showed an approximately 1 cm wide sliver of dusky looking skin, which was clearly nonviable. There was associated subcutaneous fat necrosis which was not extensive, but nonetheless present. No nviable skin at the edges of the lateral aspect of the right BKA stump as well as necrotic subcutaneo us fat were sharply removed and sent for tissue cultures. I proceeded with my debridement until I go t to the oozing and viable looking tissues. Fascia closure appeared to be intact. There were no sig ns of hematoma from the original induration. There was no obvious purulence or pus. At this point, wound was copiously irrigated with 2 liters of normal saline with bacitracin using pulse lavage irrig ation. Hemostasis was enforced using electrocautery. Next VAC dressing was applied to the wound. I t was connected to the VAC machine and there was an excellent seal. The VAC was set at 125 mmHg of n egative suction pressure. At this point, dressing was applied to the right lower extremity and proce dure was terminated. The patient was extubated in the operating room and was transferred to [facility] care unit in a satisfactory condition. Raffy Mccormack MD cc: [id number] TT: 10/16/2016 03:25:41 an
[2016-10-16] MEDS: Insulin Lispro (humaLOG) 100 Units/ml Inj SC SCH ×3 (08:37→17:21)
[2016-10-16] MEDS: Pantoprazole 40 mg EC Tab PO SCH (08:38)
[2016-10-16] MEDS: Hydrocortisone 2.5% (Rectal) CREAM PR SCH ×2 (08:38→17:21)
[2016-10-16] MEDS: Multivitamin Vitamin B Complex (Nephro-Vite) Tab PO SCH (08:38)
[2016-10-16] MEDS: Nystatin Ointment TOP SCH ×3 (08:39→17:21)
[2016-10-16] MEDS: Linezolid 600 mg in D5W 300 ml 600 MG/300 ML BAG IVPB SCH ×2 (08:40→20:41)
--- NOTE | 2016-10-16 09:02 | CP.PCM.PN ---
<Sarah Chanel - Last Filed: 10/16/16 08:57> Subjective - Date & Time of Evaluation Date of Evaluation: 10/16/16 Time of Evaluation: 08:00 - Subjective Subjective: This is a vascular surgery progress note for Dr. Mccormack: 46 y/o female patient 1 day s/p I&D of Right BKA stump (BKA 10/01/2016) on was seen at bedside this morning. Right knee elevated. Dressings clean, dry and intact. Pain to Right knee controlled. Denies n/f/v/d/c/sob. Objective - Vital Signs/Intake and Output Vital Signs (last 24 hours): Temp Pulse Resp BP Pulse Ox 97.5 F L 113 H 20 137/59 L 99 10/16/16 08:54 10/16/16 08:54 10/16/16 08:54 10/16/16 08:54 10/16/16 08:54 - Medications Medications: Current Medications Acetaminophen (Tylenol 325mg Tab) 650 mg PO Q4 PRN PRN Reason: Fever >100.4 F Last Admin: 10/02/16 16:27 Dose: 650 mg Acetaminophen (Tylenol 325mg Tab) 650 mg PO Q4 PRN PRN Reason: Pain, moderate (4-7) Last Admin: 09/16/16 22:34 Dose: 650 mg Albuterol Sulfate (Albuterol 0.083% Inhal Barbie (2.5 Mg/3 Ml) Ud) 2.5 mg INH RQ4 PRN PRN Reason: Shortness of Breath Albuterol/Ipratropium (Duoneb 3 Mg/0.5 Mg (3 Ml) Ud) 3 ml INH RQ4 PRN PRN Reason: Shortness of Breath Apixaban (Eliquis) 5 mg PO BID [facility] PRN Reason: Protocol Last Admin: 10/16/16 08:37 Dose: 5 mg Aspirin (Ecotrin) 81 mg PO DAILY [facility] Last Admin: 10/16/16 08:38 Dose: 81 mg Atorvastatin Calcium (Lipitor) 40 mg PO DAILY [facility] Last Admin: 10/16/16 08:38 Dose: 40 mg Benzonatate (Tessalon Perles) 200 mg PO TID PRN PRN Reason: Cough Last Admin: 10/02/16 14:07 Dose: 200 mg Cinacalcet (Sensipar) 30 mg PO DAILY [facility] Last Admin: 10/16/16 08:38 Dose: 30 mg Diphenhydramine HCl (Benadryl) 25 mg PO Q6 PRN PRN Reason: Itching / Pruritus Epoetin Tha (Procrit) 20,000 unit IV MWF [facility] Last Admin: 10/11/16 13:22 Dose: 20,000 unit Ergocalciferol (Drisdol 50,000 Intl Units Cap) 1 cap PO Q7D [facility] Stop: 11/06/16 11:16 Last Admin: 10/09/16 17:42 Dose: 1 cap Fluconazole (Diflucan) 100 mg PO DAILY [facility] Last Admin: 10/16/16 08:37 Dose: 100 mg Gabapentin (Neurontin) 300 mg PO TID [facility] Last Admin: 10/15/16 18:35 Dose: 300 mg Hydrocortisone (Anusol-Hc) 1 applic AL BID [facility] Last Admin: 10/16/16 08:38 Dose: 1 applic Hydromorphone HCl (Dilaudid) 1 mg IVP Q3H PRN PRN Reason: Pain, severe (8-10) Last Admin: 10/16/16 08:36 Dose: 1 mg Amikacin Sulfate 250 mg/ (Sodium Chloride) 101 mls @ 100.609 mls/hr IVPB [facility] Last Admin: 10/14/16 14:42 Dose: 100.609 mls/hr Meropenem 500 mg/ Sodium (Chloride) 100 mls @ 100 mls/hr IVPB DAILY@0100 [facility] Last Admin: 10/16/16 00:57 Dose: 100 mls/hr Piperacillin Sod/Tazobactam (Sod 2.25 gm/ Sodium Chloride) 100 mls @ 100 mls/ hr IVPB Q12@0600,1800 [facility] Last Admin: 10/16/16 05:39 Dose: 100 mls/hr Sodium Chloride (Sodium Chloride 0.9%) 1,000 mls @ 10 mls/hr IV .Q24H [facility] Last Admin: 10/13/16 18:13 Dose: 10 mls/hr Linezolid (Zyvox 600mg/300ml D5w) 600 mg in 300 mls @ 300 mls/hr IVPB Q12@0800, 2000 [facility] Last Admin: 10/16/16 08:40 Dose: 300 mls/hr Dextrose/Sodium Chloride (Dextrose 5%/0.9% Ns 1000 Ml) 1,000 mls @ 50 mls/hr IV .Q20H [facility] Stop: 10/16/16 23:55 Last Admin: 10/15/16 20:53 Dose: Not Given Insulin Detemir (Levemir) 30 units SC HS [facility] Last Admin: 10/15/16 22:00 Dose: 30 units Insulin Human Lispro (Humalog) 8 units SC AC [facility] Last Admin: 10/16/16 08:37 Dose: 8 units Lidocaine (Lidoderm) 1 ea TD DAILY [facility] Last Admin: 10/15/16 08:47 Dose: Not Given Nystatin (Mycostatin Oint) 1 applic TOP TID [facility] Last Admin: 10/16/16 08:39 Dose: 1 applic Ondansetron HCl (Zofran Inj) 4 mg IVP Q6 PRN PRN Reason: Nausea/Vomiting Last Admin: 09/19/16 10:26 Dose: 4 mg Pantoprazole Sodium (Protonix Ec Tab) 40 mg PO DAILY [facility] Last Admin: 10/16/16 08:38 Dose: 40 mg Sevelamer HCl (Renagel) 1,600 mg PO TID [facility] Last Admin: 10/16/16 08:38 Dose: 1,600 mg Topiramate (Topamax) 50 mg PO BID [facility] Last Admin: 10/16/16 08:38 Dose: 50 mg Vitamin B Complex/Vit C/Folic Acid (Nephro-Ajay) 1 tab PO DAILY [facility] Last Admin: 10/16/16 08:38 Dose: 1 tab - Labs Labs: 10/15/16 11:23 10/15/16 11:23 PT 17.6 Seconds (9.8-13.1) H 10/15/16 07:00 INR 1.5 (0.9-1.2) H 10/15/16 07:00 APTT 36.6 Seconds (25.6-37.1) 10/15/16 07:00 - Constitutional Appears: Well, Non-toxic, No Acute Distress - Extremities Exam Additional comments: Dressing to Right knee clean, dry and intact - Neurological Exam Neurological Exam: Alert, Awake, Oriented x3 - Psychiatric Exam Psychiatric exam: Normal Affect, Normal Mood - Skin Skin Exam: Normal Color, Warm Assessment and Plan - Assessment and Plan (Free Text) Assessment: 46F s/p Incision and drainage, wound VAC placement of Right BKA stump POD#1 ( Right BKA 10/01/16) Plan: - Continue pain control prn - WCX: No growth final - Continue knee immobilizer to R stump - Continue PT/OT - s/p Vaginal D&C - Surgical site to be examined, Wound VAC to be changed on (10/17) as per Dr. Mccormack <Raffy Mccormack - Last Filed: 10/16/16 15:55> Objective - Vital Signs/Intake and Output Vital Signs (last 24 hours): Temp Pulse Resp BP Pulse Ox 97.5 F L 113 H 20 137/59 L 99 10/16/16 08:54 10/16/16 08:54 10/16/16 08:54 10/16/16 08:54 10/16/16 08:54 - Medications Medications: Current Medications Acetaminophen (Tylenol 325mg Tab) 650 mg PO Q4 PRN PRN Reason: Fever >100.4 F Last Admin: 10/02/16 16:27 Dose: 650 mg Acetaminophen (Tylenol 325mg Tab) 650 mg PO Q4 PRN PRN Reason: Pain, moderate (4-7) Last Admin: 09/16/16 22:34 Dose: 650 mg Albuterol Sulfate (Albuterol 0.083% Inhal Barbie (2.5 Mg/3 Ml) Ud) 2.5 mg INH RQ4 PRN PRN Reason: Shortness of Breath Albuterol/Ipratropium (Duoneb 3 Mg/0.5 Mg (3 Ml) Ud) 3 ml INH RQ4 PRN PRN Reason: Shortness of Breath Apixaban (Eliquis) 5 mg PO BID [facility] PRN Reason: Protocol Last Admin: 10/16/16 08:37 Dose: 5 mg Aspirin (Ecotrin) 81 mg PO DAILY [facility] Last Admin: 10/16/16 08:38 Dose: 81 mg Atorvastatin Calcium (Lipitor) 40 mg PO DAILY [facility] Last Admin: 10/16/16 08:38 Dose: 40 mg Benzonatate (Tessalon Perles) 200 mg PO TID PRN PRN Reason: Cough Last Admin: 10/02/16 14:07 Dose: 200 mg Cinacalcet (Sensipar) 30 mg PO DAILY [facility] Last Admin: 10/16/16 08:38 Dose: 30 mg Diphenhydramine HCl (Benadryl) 25 mg PO Q6 PRN PRN Reason: Itching / Pruritus Epoetin Tha (Procrit) 20,000 unit IV MWF [facility] Last Admin: 10/16/16 10:40 Dose: 20,000 unit Ergocalciferol (Drisdol 50,000 Intl Units Cap) 1 cap PO Q7D [facility] Stop: 11/06/16 11:16 Last Admin: 10/16/16 11:25 Dose: 1 cap Fluconazole (Diflucan) 100 mg PO DAILY [facility] Last Admin: 10/16/16 08:37 Dose: 100 mg Gabapentin (Neurontin) 300 mg PO TID [facility] Last Admin: 10/16/16 13:07 Dose: 300 mg Hydrocortisone (Anusol-Hc) 1 applic AL BID [facility] Last Admin: 10/16/16 08:38 Dose: 1 applic Hydromorphone HCl (Dilaudid) 1 mg IVP Q3H PRN PRN Reason: Pain, severe (8-10) Last Admin: 10/16/16 14:24 Dose: 1 mg Amikacin Sulfate 250 mg/ (Sodium Chloride) 101 mls @ 100.609 mls/hr [facility] Last Admin: 10/16/16 10:40 Dose: 100.609 mls/hr Meropenem 500 mg/ Sodium (Chloride) 100 mls @ 100 mls/hr IVPB DAILY@0100 [facility] Last Admin: 10/16/16 00:57 Dose: 100 mls/hr Piperacillin Sod/Tazobactam (Sod 2.25 gm/ Sodium Chloride) 100 mls @ 100 mls/ hr IVPB Q12@0600,1800 [facility] Last Admin: 10/16/16 05:39 Dose: 100 mls/hr Sodium Chloride (Sodium Chloride 0.9%) 1,000 mls @ 10 mls/hr IV .Q24H [facility] Last Admin: 10/13/16 18:13 Dose: 10 mls/hr Linezolid (Zyvox 600mg/300ml D5w) 600 mg in 300 mls @ 300 mls/hr IVPB Q12@0800, 2000 [facility] Last Admin: 10/16/16 08:40 Dose: 300 mls/hr Insulin Detemir (Levemir) 30 units SC HS [facility] Last Admin: 10/15/16 22:00 Dose: 30 units Insulin Human Lispro (Humalog) 8 units SC AC [facility] Last Admin: 10/16/16 13:07 Dose: 8 units Lidocaine (Lidoderm) 1 ea TD DAILY [facility] Last Admin: 10/16/16 10:37 Dose: Not Given Nystatin (Mycostatin Oint) 1 applic TOP TID [facility] Last Admin: 10/16/16 13:07 Dose: Not Given Ondansetron HCl (Zofran Inj) 4 mg IVP Q6 PRN PRN Reason: Nausea/Vomiting Last Admin: 09/19/16 10:26 Dose: 4 mg Pantoprazole Sodium (Protonix Ec Tab) 40 mg PO DAILY [facility] Last Admin: 10/16/16 08:38 Dose: 40 mg Phenylephrine HCl (Dagoberto-Synephrine 0.5% Nasal [place]) 1 spry ALLAN Q4 PRN PRN Reason: Nasal congestion Sevelamer HCl (Renagel) 1,600 mg PO TID [facility] Last Admin: 10/16/16 13:06 Dose: 1,600 mg Topiramate (Topamax) 50 mg PO BID [facility] Last Admin: 10/16/16 08:38 Dose: 50 mg Vitamin B Complex/Vit C/Folic Acid (Nephro-Ajay) 1 tab PO DAILY [facility] Last Admin: 10/16/16 08:38 Dose: 1 tab - Labs Labs: 10/16/16 11:00 10/16/16 11:00 PT 17.6 Seconds (9.8-13.1) H 10/15/16 07:00 INR 1.5 (0.9-1.2) H 10/15/16 07:00 APTT 36.6 Seconds (25.6-37.1) 10/15/16 07:00 Attending/Attestation - Attestation I have personally seen and examined this patient.: Yes I have fully participated in the care of the patient.: Yes I have reviewed all pertinent clinical information, including history, physical exam and plan: Yes Notes (Text): 10/16/16 15:51 Patient had uneventful night. She has no immediate complaints. Pain is controlled. She is hemodynamically stable and afebrile at present with normal WBC. Right BKA stump with VAC on and working. Continue supportive management. Will change VAC dressing at bedside tomorrow and examine the wound.
--- NOTE | 2016-10-16 09:45 | CP.PCM.PN ---
Subjective - Date & Time of Evaluation Date of Evaluation: 10/16/16 Time of Evaluation: 09:42 - Subjective Subjective: S/P R BK amputation on 09/01/16 - underwent debridement of wound yesterday because of some dehiscence. A wound vac is now in place, and patient is comfortable in recliner. No fevers. Pain controlled. To continue on 4 iv and 1 po antibiotics as per discussion with Dr. Lemon because of previous osteomyelitis of foot. DM controlled. Vaginal bleeding has stopped. HD to continue MWF as before. Objective - Vital Signs/Intake and Output Vital Signs (last 24 hours): Temp Pulse Resp BP Pulse Ox 97.5 F L 113 H 20 137/59 L 99 10/16/16 08:54 10/16/16 08:54 10/16/16 08:54 10/16/16 08:54 10/16/16 08:54 - Medications Medications: Current Medications Acetaminophen (Tylenol 325mg Tab) 650 mg PO Q4 PRN PRN Reason: Fever >100.4 F Last Admin: 10/02/16 16:27 Dose: 650 mg Acetaminophen (Tylenol 325mg Tab) 650 mg PO Q4 PRN PRN Reason: Pain, moderate (4-7) Last Admin: 09/16/16 22:34 Dose: 650 mg Albuterol Sulfate (Albuterol 0.083% Inhal Barbie (2.5 Mg/3 Ml) Ud) 2.5 mg INH RQ4 PRN PRN Reason: Shortness of Breath Albuterol/Ipratropium (Duoneb 3 Mg/0.5 Mg (3 Ml) Ud) 3 ml INH RQ4 PRN PRN Reason: Shortness of Breath Apixaban (Eliquis) 5 mg PO BID [facility] PRN Reason: Protocol Last Admin: 10/16/16 08:37 Dose: 5 mg Aspirin (Ecotrin) 81 mg PO DAILY [facility] Last Admin: 10/16/16 08:38 Dose: 81 mg Atorvastatin Calcium (Lipitor) 40 mg PO DAILY [facility] Last Admin: 10/16/16 08:38 Dose: 40 mg Benzonatate (Tessalon Perles) 200 mg PO TID PRN PRN Reason: Cough Last Admin: 10/02/16 14:07 Dose: 200 mg Cinacalcet (Sensipar) 30 mg PO DAILY [facility] Last Admin: 10/16/16 08:38 Dose: 30 mg Diphenhydramine HCl (Benadryl) 25 mg PO Q6 PRN PRN Reason: Itching / Pruritus Epoetin Tha (Procrit) 20,000 unit IV MWF [facility] Last Admin: 10/11/16 13:22 Dose: 20,000 unit Ergocalciferol (Drisdol 50,000 Intl Units Cap) 1 cap PO Q7D [facility] Stop: 11/06/16 11:16 Last Admin: 10/09/16 17:42 Dose: 1 cap Fluconazole (Diflucan) 100 mg PO DAILY [facility] Last Admin: 10/16/16 08:37 Dose: 100 mg Gabapentin (Neurontin) 300 mg PO TID [facility] Last Admin: 10/15/16 18:35 Dose: 300 mg Hydrocortisone (Anusol-Hc) 1 applic GA BID [facility] Last Admin: 10/16/16 08:38 Dose: 1 applic Hydromorphone HCl (Dilaudid) 1 mg IVP Q3H PRN PRN Reason: Pain, severe (8-10) Last Admin: 10/16/16 08:36 Dose: 1 mg Amikacin Sulfate 250 mg/ (Sodium Chloride) 101 mls @ 100.609 mls/hr IVPB [facility] Last Admin: 10/14/16 14:42 Dose: 100.609 mls/hr Meropenem 500 mg/ Sodium (Chloride) 100 mls @ 100 mls/hr IVPB DAILY@0100 [facility] Last Admin: 10/16/16 00:57 Dose: 100 mls/hr Piperacillin Sod/Tazobactam (Sod 2.25 gm/ Sodium Chloride) 100 mls @ 100 mls/ hr IVPB Q12@0600,1800 [facility] Last Admin: 10/16/16 05:39 Dose: 100 mls/hr Sodium Chloride (Sodium Chloride 0.9%) 1,000 mls @ 10 mls/hr IV .Q24H [facility] Last Admin: 10/13/16 18:13 Dose: 10 mls/hr Linezolid (Zyvox 600mg/300ml D5w) 600 mg in 300 mls @ 300 mls/hr IVPB Q12@0800, 2000 [facility] Last Admin: 10/16/16 08:40 Dose: 300 mls/hr Dextrose/Sodium Chloride (Dextrose 5%/0.9% Ns 1000 Ml) 1,000 mls @ 50 mls/hr IV .Q20H [facility] Stop: 10/16/16 23:55 Last Admin: 10/15/16 20:53 Dose: Not Given Insulin Detemir (Levemir) 30 units SC HS [facility] Last Admin: 10/15/16 22:00 Dose: 30 units Insulin Human Lispro (Humalog) 8 units SC AC [facility] Last Admin: 10/16/16 08:37 Dose: 8 units Lidocaine (Lidoderm) 1 ea TD DAILY [facility] Last Admin: 10/15/16 08:47 Dose: Not Given Nystatin (Mycostatin Oint) 1 applic TOP TID [facility] Last Admin: 10/16/16 08:39 Dose: 1 applic Ondansetron HCl (Zofran Inj) 4 mg IVP Q6 PRN PRN Reason: Nausea/Vomiting Last Admin: 09/19/16 10:26 Dose: 4 mg Pantoprazole Sodium (Protonix Ec Tab) 40 mg PO DAILY [facility] Last Admin: 10/16/16 08:38 Dose: 40 mg Sevelamer HCl (Renagel) 1,600 mg PO TID [facility] Last Admin: 10/16/16 08:38 Dose: 1,600 mg Topiramate (Topamax) 50 mg PO BID [facility] Last Admin: 10/16/16 08:38 Dose: 50 mg Vitamin B Complex/Vit C/Folic Acid (Nephro-Ajay) 1 tab PO DAILY [facility] Last Admin: 10/16/16 08:38 Dose: 1 tab - Labs Labs: 10/15/16 11:23 10/15/16 11:23 PT 17.6 Seconds (9.8-13.1) H 10/15/16 07:00 INR 1.5 (0.9-1.2) H 10/15/16 07:00 APTT 36.6 Seconds (25.6-37.1) 10/15/16 07:00 - Constitutional Appears: No Acute Distress - Head Exam Head Exam: NORMAL INSPECTION - Eye Exam Eye Exam: Normal appearance - ENT Exam ENT Exam: Mucous Membranes Moist - Neck Exam Neck Exam: Normal Inspection - Respiratory Exam Respiratory Exam: Clear to Ausculation Bilateral, NORMAL BREATHING PATTERN - Cardiovascular Exam Cardiovascular Exam: REGULAR RHYTHM, +S1, +S2 - GI/Abdominal Exam GI & Abdominal Exam: Soft, Normal Bowel Sounds - Back Exam Back Exam: NORMAL INSPECTION - Neurological Exam Neurological Exam: Alert, Awake, CN II-XII Intact, Oriented x3 - Psychiatric Exam Psychiatric exam: Normal Affect, Normal Mood - Skin Skin Exam: Dry, Intact, Normal Color, Warm Additional comments: See wound care notes regarding buttock dressings. Assessment and Plan (1) Status post below knee amputation of right lower extremity Assessment & Plan: S/P debridement in OR by Dr. Mccormack yesterday and now on wound vac therapy. To continue antibiotics. Status: Acute (2) Osteomyelitis of ankle or foot Assessment & Plan: Read the last paragraph of Joselin' "The [place]ague." Status: Acute (3) ESRD (end stage renal disease) on dialysis Assessment & Plan: Stable on HD. Status: Chronic (4) DM type 2 (diabetes mellitus, type 2) Assessment & Plan: Controlled on current regimen as per Dr. Ambrose. Status: Chronic (5) Coagulopathy Assessment & Plan: Continue Eliquis and aspirin. Status: Chronic (6) Anemia, blood loss Status: Acute (7) Peripheral arterial occlusive disease Assessment & Plan: Always a concern, but no new problems. Status: Chronic
[2016-10-16] MEDS: Lidocaine 5% Patch TD SCH (10:37)
[2016-10-16] MEDS: Epoetin Alfa 20000 UNIT/ML Inj IV SCH (10:40)
--- NOTE | 2016-10-16 11:15 | CP.PCM.PN ---
Subjective - Date & Time of Evaluation Date of Evaluation: 10/16/16 Time of Evaluation: 11:12 - Subjective Subjective: Pt is feeling better, her pain is very well controlled, no vaginal bleeding. HGb is stable. She has a small wound dehiscence at the right leg stump, to be seen by wound care. Objective - Vital Signs/Intake and Output Vital Signs (last 24 hours): Temp Pulse Resp BP Pulse Ox 97.5 F L 113 H 20 137/59 L 99 10/16/16 08:54 10/16/16 08:54 10/16/16 08:54 10/16/16 08:54 10/16/16 08:54 - Medications Medications: Current Medications Acetaminophen (Tylenol 325mg Tab) 650 mg PO Q4 PRN PRN Reason: Fever >100.4 F Last Admin: 10/02/16 16:27 Dose: 650 mg Acetaminophen (Tylenol 325mg Tab) 650 mg PO Q4 PRN PRN Reason: Pain, moderate (4-7) Last Admin: 09/16/16 22:34 Dose: 650 mg Albuterol Sulfate (Albuterol 0.083% Inhal Barbie (2.5 Mg/3 Ml) Ud) 2.5 mg INH RQ4 PRN PRN Reason: Shortness of Breath Albuterol/Ipratropium (Duoneb 3 Mg/0.5 Mg (3 Ml) Ud) 3 ml INH RQ4 PRN PRN Reason: Shortness of Breath Apixaban (Eliquis) 5 mg PO BID [facility] PRN Reason: Protocol Last Admin: 10/16/16 08:37 Dose: 5 mg Aspirin (Ecotrin) 81 mg PO DAILY [facility] Last Admin: 10/16/16 08:38 Dose: 81 mg Atorvastatin Calcium (Lipitor) 40 mg PO DAILY [facility] Last Admin: 10/16/16 08:38 Dose: 40 mg Benzonatate (Tessalon Perles) 200 mg PO TID PRN PRN Reason: Cough Last Admin: 10/02/16 14:07 Dose: 200 mg Cinacalcet (Sensipar) 30 mg PO DAILY [facility] Last Admin: 10/16/16 08:38 Dose: 30 mg Diphenhydramine HCl (Benadryl) 25 mg PO Q6 PRN PRN Reason: Itching / Pruritus Epoetin Tha (Procrit) 20,000 unit IV F [facility] Last Admin: 10/16/16 10:40 Dose: 20,000 unit Ergocalciferol (Drisdol 50,000 Intl Units Cap) 1 cap PO Q7D [facility] Stop: 11/06/16 11:16 Last Admin: 10/09/16 17:42 Dose: 1 cap Fluconazole (Diflucan) 100 mg PO DAILY [facility] Last Admin: 10/16/16 08:37 Dose: 100 mg Gabapentin (Neurontin) 300 mg PO TID [facility] Last Admin: 10/16/16 08:39 Dose: 300 mg Hydrocortisone (Anusol-Hc) 1 applic PA BID [facility] Last Admin: 10/16/16 08:38 Dose: 1 applic Hydromorphone HCl (Dilaudid) 1 mg IVP Q3H PRN PRN Reason: Pain, severe (8-10) Last Admin: 10/16/16 08:36 Dose: 1 mg Amikacin Sulfate 250 mg/ (Sodium Chloride) 101 mls @ 100.609 mls/hr IVPB [facility] Last Admin: 10/16/16 10:40 Dose: 100.609 mls/hr Meropenem 500 mg/ Sodium (Chloride) 100 mls @ 100 mls/hr IVPB DAILY@0100 [facility] Last Admin: 10/16/16 00:57 Dose: 100 mls/hr Piperacillin Sod/Tazobactam (Sod 2.25 gm/ Sodium Chloride) 100 mls @ 100 mls/ hr IVPB Q12@0600,1800 [facility] Last Admin: 10/16/16 05:39 Dose: 100 mls/hr Sodium Chloride (Sodium Chloride 0.9%) 1,000 mls @ 10 mls/hr IV .Q24H [facility] Last Admin: 10/13/16 18:13 Dose: 10 mls/hr Linezolid (Zyvox 600mg/300ml D5w) 600 mg in 300 mls @ 300 mls/hr IVPB Q12@0800, 2000 [facility] Last Admin: 10/16/16 08:40 Dose: 300 mls/hr Insulin Detemir (Levemir) 30 units SC HS [facility] Last Admin: 10/15/16 22:00 Dose: 30 units Insulin Human Lispro (Humalog) 8 units SC AC [facility] Last Admin: 10/16/16 08:37 Dose: 8 units Lidocaine (Lidoderm) 1 ea TD DAILY [facility] Last Admin: 10/16/16 10:37 Dose: Not Given Nystatin (Mycostatin Oint) 1 applic TOP TID [facility] Last Admin: 10/16/16 08:39 Dose: 1 applic Ondansetron HCl (Zofran Inj) 4 mg IVP Q6 PRN PRN Reason: Nausea/Vomiting Last Admin: 09/19/16 10:26 Dose: 4 mg Pantoprazole Sodium (Protonix Ec Tab) 40 mg PO DAILY [facility] Last Admin: 10/16/16 08:38 Dose: 40 mg Sevelamer HCl (Renagel) 1,600 mg PO TID [facility] Last Admin: 10/16/16 08:38 Dose: 1,600 mg Topiramate (Topamax) 50 mg PO BID [facility] Last Admin: 10/16/16 08:38 Dose: 50 mg Vitamin B Complex/Vit C/Folic Acid (Nephro-Ajay) 1 tab PO DAILY [facility] Last Admin: 10/16/16 08:38 Dose: 1 tab - Labs Labs: 10/15/16 11:23 10/15/16 11:23 PT 17.6 Seconds (9.8-13.1) H 10/15/16 07:00 INR 1.5 (0.9-1.2) H 10/15/16 07:00 APTT 36.6 Seconds (25.6-37.1) 10/15/16 07:00
[2016-10-16 11:24] LABS: MEAN CELL VOLUME 90.4 fl (81.0-99.0); MEAN CORPUSCULAR HEMOGLOBIN 29.9 pg (27.0-31.0); RED CELL DISTRIBUTION WIDTH 17.8 % (11.5-14.5); WHITE BLOOD COUNT 8.3 K/uL (4.8-10.8)
[2016-10-16] MEDS: Ergocalciferol 50,000 Intl Units Cap PO SCH (11:25)
[2016-10-16 11:41] LABS: ALB/GLOB RATIO 0.7 (1.0-2.1); BILIRUBIN,TOTAL 0.6 mg/dl (0.2-1.3); CALCIUM 9.6 mg/dL (8.4-10.2); POTASSIUM 4.1 MMOL/L (3.6-5.0); TOTAL PROTEIN 8.8 G/DL (6.3-8.2)
[2016-10-16] MEDS ORDERED: Phenylephrine 0.5% Nasal Spray NAS PRN (14:11)
--- NOTE | 2016-10-16 16:25 | PN ---
DATE: 10/16/2016 ROOM: 663 This is a 46-year-old female with recent uncontrolled type 2 insulin-requiring diabetes, now being fo llowed closely postoperatively for metabolic management. She underwent a right below-knee amputation for severe underlying osteomyelitis and peripheral arterial disease and is now being followed closel y for metabolic management. Her glucose values are much improved at this time and the latest chemistries showed a BUN of 43, sodi um 139, potassium 4.1, chloride 98, CO2 25, glucose 117 and creatinine 6.8. So at this time, we will continue the same basal and bolus insulin regimen as given with Humalog give n as 8 units subQ t.i.d. before meals as ordered. We will continue also the Levemir given as 30 unit s subQ at bedtime daily as given. We will titrate incrementally as indicated to optimize metabolic c ontrol. We will follow and advise accordingly. Irene Ambrose MD cc: [id number] TT: 10/16/2016 16:24:27 Confirmation # [id number] Dictation # [id number] en
[2016-10-16] MEDS: Sodium Chloride 0.9% 1,000 ML IV SCH (17:37)
--- NOTE | 2016-10-16 20:36 | CP.PCM.PN ---
Subjective - Date & Time of Evaluation Date of Evaluation: 10/16/16 Time of Evaluation: 11:20 - Subjective Subjective: no changes clinically receiving HD BP stable UF about 3500cc k bath 2 meq na 138 chest no rales HT no rubs abd soft IMpressin and plan continue HD as noted by primary team Objective - Vital Signs/Intake and Output Vital Signs (last 24 hours): Temp Pulse Resp BP Pulse Ox 97.3 F L 122 H 18 112/79 97 10/16/16 16:01 10/16/16 16:01 10/16/16 16:01 10/16/16 16:01 10/16/16 16:01 - Medications Medications: Current Medications Acetaminophen (Tylenol 325mg Tab) 650 mg PO Q4 PRN PRN Reason: Fever >100.4 F Last Admin: 10/02/16 16:27 Dose: 650 mg Acetaminophen (Tylenol 325mg Tab) 650 mg PO Q4 PRN PRN Reason: Pain, moderate (4-7) Last Admin: 09/16/16 22:34 Dose: 650 mg Albuterol Sulfate (Albuterol 0.083% Inhal Barbie (2.5 Mg/3 Ml) Ud) 2.5 mg INH RQ4 PRN PRN Reason: Shortness of Breath Albuterol/Ipratropium (Duoneb 3 Mg/0.5 Mg (3 Ml) Ud) 3 ml INH RQ4 PRN PRN Reason: Shortness of Breath Apixaban (Eliquis) 5 mg PO BID [facility] PRN Reason: Protocol Last Admin: 10/16/16 17:21 Dose: 5 mg Aspirin (Ecotrin) 81 mg PO DAILY [facility] Last Admin: 10/16/16 08:38 Dose: 81 mg Atorvastatin Calcium (Lipitor) 40 mg PO DAILY [facility] Last Admin: 10/16/16 08:38 Dose: 40 mg Benzonatate (Tessalon Perles) 200 mg PO TID PRN PRN Reason: Cough Last Admin: 10/02/16 14:07 Dose: 200 mg Cinacalcet (Sensipar) 30 mg PO DAILY [facility] Last Admin: 10/16/16 08:38 Dose: 30 mg Diphenhydramine HCl (Benadryl) 25 mg PO Q6 PRN PRN Reason: Itching / Pruritus Epoetin Tha (Procrit) 20,000 unit IV MWF [facility] Last Admin: 10/16/16 10:40 Dose: 20,000 unit Ergocalciferol (Drisdol 50,000 Intl Units Cap) 1 cap PO Q7D [facility] Stop: 11/06/16 11:16 Last Admin: 10/16/16 11:25 Dose: 1 cap Fluconazole (Diflucan) 100 mg PO DAILY [facility] Last Admin: 10/16/16 08:37 Dose: 100 mg Gabapentin (Neurontin) 300 mg PO TID [facility] Last Admin: 10/16/16 17:22 Dose: 300 mg Hydrocortisone (Anusol-Hc) 1 applic [place] BID [facility] Last Admin: 10/16/16 17:21 Dose: Not Given Hydromorphone HCl (Dilaudid) 1 mg IVP Q3H PRN PRN Reason: Pain, severe (8-10) Last Admin: 10/16/16 17:48 Dose: 1 mg Amikacin Sulfate 250 mg/ (Sodium Chloride) 101 mls @ 100.609 [facility]ls[facility] Last Admin: 10/16/16 10:40 Dose: 100.609 mls/hr Meropenem 500 mg/ Sodium (Chloride) 100 mls @ 100 mls/hr IVPB DAILY@0100 [facility] Last Admin: 10/16/16 00:57 Dose: 100 mls/hr Piperacillin Sod/Tazobactam (Sod 2.25 gm/ Sodium Chloride) 100 mls @ 100 mls/ hr IVPB Q12@0600,1800 [facility] Last Admin: 10/16/16 17:37 Dose: 100 mls/hr Sodium Chloride (Sodium Chloride 0.9%) 1,000 mls @ 10 mls/hr IV .Q24H [facility] Last Admin: 10/16/16 17:37 Dose: 10 mls/hr Linezolid (Zyvox 600mg/300ml D5w) 600 mg in 300 mls @ 300 mls/hr IVPB Q12@0800, 2000 [facility] Last Admin: 10/16/16 08:40 Dose: 300 mls/hr Insulin Detemir (Levemir) 30 units SC HS [facility] Last Admin: 10/15/16 22:00 Dose: 30 units Insulin Human Lispro (Humalog) 8 units SC AC [facility] Last Admin: 10/16/16 17:21 Dose: 8 units Lidocaine (Lidoderm) 1 ea TD DAILY [facility] Last Admin: 10/16/16 10:37 Dose: Not Given Nystatin (Mycostatin Oint) 1 applic TOP TID [facility] Last Admin: 10/16/16 17:21 Dose: 1 applic Ondansetron HCl (Zofran Inj) 4 mg IVP Q6 PRN PRN Reason: Nausea/Vomiting Last Admin: 09/19/16 10:26 Dose: 4 mg Pantoprazole Sodium (Protonix Ec Tab) 40 mg PO DAILY [facility] Last Admin: 10/16/16 08:38 Dose: 40 mg Phenylephrine HCl (Dagoberto-Synephrine 0.5% Nasal [place]) 1 spry ALLAN Q4 PRN PRN Reason: Nasal congestion Sevelamer HCl (Renagel) 1,600 mg PO TID [facility] Last Admin: 10/16/16 17:21 Dose: 1,600 mg Topiramate (Topamax) 50 mg PO BID [facility] Last Admin: 10/16/16 17:21 Dose: 50 mg Vitamin B Complex/Vit C/Folic Acid (Nephro-Ajay) 1 tab PO DAILY [facility] Last Admin: 10/16/16 08:38 Dose: 1 tab - Labs Labs: 10/16/16 11:00 10/16/16 11:00 PT 17.6 Seconds (9.8-13.1) H 10/15/16 07:00 INR 1.5 (0.9-1.2) H 10/15/16 07:00 APTT 36.6 Seconds (25.6-37.1) 10/15/16 07:00 Assessment and Plan (1) ESRD (end stage renal disease) Status: Chronic (2) Cellulitis of leg Status: Chronic
[2016-10-16] MEDS: Insulin Detemir 100 Units/ml Inj SC SCH (22:42)
[2016-10-17] MEDS: Meropenem 500 MG in Sodium Chloride 0.9% 100 ML IVPB SCH (00:31)
--- NOTE | 2016-10-17 08:12 | CP.PCM.PN ---
<DaríoAshlySandra - Last Filed: 10/17/16 08:09> Subjective - Date & Time of Evaluation Date of Evaluation: 10/17/16 Time of Evaluation: 07:05 - Subjective Subjective: This is a vascular surgery progress note for Dr. Mccormack: 46 y/o female patient 2 days s/p I&D of Right BKA stump (BKA 10/01/2016) on was seen at bedside this morning. Dressing c/d/i, with no strikethrough. patient denies of N/V/F/C or SOB today Wound VAC functioning 125mmHg with <50cc collection Objective - Vital Signs/Intake and Output Vital Signs (last 24 hours): Temp Pulse Resp BP Pulse Ox 98.0 F 118 H 18 132/79 99 10/17/16 07:42 10/17/16 07:42 10/17/16 07:42 10/17/16 07:42 10/17/16 07:42 - Medications Medications: Current Medications Acetaminophen (Tylenol 325mg Tab) 650 mg PO Q4 PRN PRN Reason: Fever >100.4 F Last Admin: 10/02/16 16:27 Dose: 650 mg Acetaminophen (Tylenol 325mg Tab) 650 mg PO Q4 PRN PRN Reason: Pain, moderate (4-7) Last Admin: 09/16/16 22:34 Dose: 650 mg Albuterol Sulfate (Albuterol 0.083% Inhal Barbie (2.5 Mg/3 Ml) Ud) 2.5 mg INH RQ4 PRN PRN Reason: Shortness of Breath Albuterol/Ipratropium (Duoneb 3 Mg/0.5 Mg (3 Ml) Ud) 3 ml INH RQ4 PRN PRN Reason: Shortness of Breath Apixaban (Eliquis) 5 mg PO BID [facility] PRN Reason: Protocol Last Admin: 10/16/16 17:21 Dose: 5 mg Aspirin (Ecotrin) 81 mg PO DAILY [facility] Last Admin: 10/16/16 08:38 Dose: 81 mg Atorvastatin Calcium (Lipitor) 40 mg PO DAILY [facility] Last Admin: 10/16/16 08:38 Dose: 40 mg Benzonatate (Tessalon Perles) 200 mg PO TID PRN PRN Reason: Cough Last Admin: 10/02/16 14:07 Dose: 200 mg Cinacalcet (Sensipar) 30 mg PO DAILY [facility] Last Admin: 10/16/16 08:38 Dose: 30 mg Diphenhydramine HCl (Benadryl) 25 mg PO Q6 PRN PRN Reason: Itching / Pruritus Epoetin Tha (Procrit) 20,000 unit IV MWF [facility] Last Admin: 10/16/16 10:40 Dose: 20,000 unit Ergocalciferol (Drisdol 50,000 Intl Units Cap) 1 cap PO Q7D [facility] Stop: 11/06/16 11:16 Last Admin: 10/16/16 11:25 Dose: 1 cap Fluconazole (Diflucan) 100 mg PO DAILY [facility] Last Admin: 10/16/16 08:37 Dose: 100 mg Gabapentin (Neurontin) 300 mg PO TID [facility] Last Admin: 10/16/16 17:22 Dose: 300 mg Hydrocortisone (Anusol-Hc) 1 applic [place] BID [facility] Last Admin: 10/16/16 17:21 Dose: Not Given Hydromorphone HCl (Dilaudid) 1 mg IVP Q3H PRN PRN Reason: Pain, severe (8-10) Last Admin: 10/17/16 07:12 Dose: 1 mg Amikacin Sulfate 250 mg/ (Sodium Chloride) 101 mls @ 100.609 mls[facility] Last Admin: 10/16/16 10:40 Dose: 100.609 mls/hr Meropenem 500 mg/ Sodium (Chloride) 100 mls @ 100 mls/hr IVPB DAILY@0100 [facility] Last Admin: 10/17/16 00:31 Dose: 100 mls/hr Piperacillin Sod/Tazobactam (Sod 2.25 gm/ Sodium Chloride) 100 mls @ 100 mls/ hr IVPB Q12@0600,1800 [facility] Last Admin: 10/17/16 05:50 Dose: 100 mls/hr Sodium Chloride (Sodium Chloride 0.9%) 1,000 mls @ 10 mls/hr IV .Q24H [facility] Last Admin: 10/16/16 17:37 Dose: 10 mls/hr Linezolid (Zyvox 600mg/300ml D5w) 600 mg in 300 mls @ 300 mls/hr IVPB Q12@0800, 2000 [facility] Last Admin: 10/16/16 20:41 Dose: 300 mls/hr Insulin Detemir (Levemir) 30 units SC HS [facility] Last Admin: 10/16/16 22:42 Dose: 30 units Insulin Human Lispro (Humalog) 8 units SC AC [facility] Last Admin: 10/16/16 17:21 Dose: 8 units Lidocaine (Lidoderm) 1 ea TD DAILY [facility] Last Admin: 10/16/16 10:37 Dose: Not Given Nystatin (Mycostatin Oint) 1 applic TOP TID [facility] Last Admin: 10/16/16 17:21 Dose: 1 applic Ondansetron HCl (Zofran Inj) 4 mg IVP Q6 PRN PRN Reason: Nausea/Vomiting Last Admin: 09/19/16 10:26 Dose: 4 mg Pantoprazole Sodium (Protonix Ec Tab) 40 mg PO DAILY [facility] Last Admin: 10/16/16 08:38 Dose: 40 mg Phenylephrine HCl (Dagoberto-Synephrine 0.5% Nasal [place]) 1 spry ALLAN Q4 PRN PRN Reason: Nasal congestion Sevelamer HCl (Renagel) 1,600 mg PO TID [facility] Last Admin: 10/16/16 17:21 Dose: 1,600 mg Topiramate (Topamax) 50 mg PO BID [facility] Last Admin: 10/16/16 17:21 Dose: 50 mg Vitamin B Complex/Vit C/Folic Acid (Nephro-Ajay) 1 tab PO DAILY [facility] Last Admin: 10/16/16 08:38 Dose: 1 tab - Labs Labs: 10/16/16 11:00 10/16/16 11:00 PT 17.6 Seconds (9.8-13.1) H 10/15/16 07:00 INR 1.5 (0.9-1.2) H 10/15/16 07:00 APTT 36.6 Seconds (25.6-37.1) 10/15/16 07:00 - Constitutional Appears: Well, Non-toxic, No Acute Distress - Extremities Exam Additional comments: Dressing to Right knee clean, dry and intact. Wound VAC functioning at 125 mmHg with 50cc collection - Neurological Exam Neurological Exam: Alert, Awake, Oriented x3 - Psychiatric Exam Psychiatric exam: Normal Affect, Normal Mood - Skin Skin Exam: Normal Color, Warm Assessment and Plan - Assessment and Plan (Free Text) Assessment: 46F s/p Incision and drainage, wound VAC placement of Right BKA stump POD#2 ( Right BKA 10/01/16) Plan: - Continue pain control prn - WCX: No growth final - Continue knee immobilizer to R stump - Continue PT/OT - s/p Vaginal D&C - Surgical site to be examined, Wound VAC to be changed Today <Raffy Mccormack - Last Filed: 10/17/16 16:21> Objective - Vital Signs/Intake and Output Vital Signs (last 24 hours): Temp Pulse Resp BP Pulse Ox 98.0 F 118 H 18 132/79 99 10/17/16 07:42 10/17/16 07:42 10/17/16 07:42 10/17/16 07:42 10/17/16 07:42 - Medications Medications: Current Medications Acetaminophen (Tylenol 325mg Tab) 650 mg PO Q4 PRN PRN Reason: Fever >100.4 F Last Admin: 10/02/16 16:27 Dose: 650 mg Acetaminophen (Tylenol 325mg Tab) 650 mg PO Q4 PRN PRN Reason: Pain, moderate (4-7) Last Admin: 09/16/16 22:34 Dose: 650 mg Albuterol Sulfate (Albuterol 0.083% Inhal Barbie (2.5 Mg/3 Ml) Ud) 2.5 mg INH RQ4 PRN PRN Reason: Shortness of Breath Albuterol/Ipratropium (Duoneb 3 Mg/0.5 Mg (3 Ml) Ud) 3 ml INH RQ4 PRN PRN Reason: Shortness of Breath Apixaban (Eliquis) 5 mg PO BID [facility] PRN Reason: Protocol Last Admin: 10/17/16 09:20 Dose: 5 mg Aspirin (Ecotrin) 81 mg PO DAILY [facility] Last Admin: 10/17/16 09:19 Dose: 81 mg Atorvastatin Calcium (Lipitor) 40 mg PO DAILY [facility] Last Admin: 10/17/16 09:24 Dose: 40 mg Benzonatate (Tessalon Perles) 200 mg PO TID PRN PRN Reason: Cough Last Admin: 10/02/16 14:07 Dose: 200 mg Cinacalcet (Sensipar) 30 mg PO DAILY [facility] Last Admin: 10/17/16 09:27 Dose: 30 mg Diphenhydramine HCl (Benadryl) 25 mg PO Q6 PRN PRN Reason: Itching / Pruritus Epoetin Tha (Procrit) 20,000 unit IV MWF [facility] Last Admin: 10/16/16 10:40 Dose: 20,000 unit Ergocalciferol (Drisdol 50,000 Intl Units Cap) 1 cap PO Q7D [facility] Stop: 11/06/16 11:16 Last Admin: 10/16/16 11:25 Dose: 1 cap Fluconazole (Diflucan) 100 mg PO DAILY [facility] Last Admin: 10/17/16 09:18 Dose: 100 mg Gabapentin (Neurontin) 300 mg PO TID [facility] Last Admin: 10/17/16 09:26 Dose: 300 mg Hydrocortisone (Anusol-Hc) 1 applic [place] BID [facility] Last Admin: 10/17/16 09:16 Dose: Not Given Hydromorphone HCl (Dilaudid) 1 mg IVP Q3H PRN PRN Reason: Pain, severe (8-10) Last Admin: 10/17/16 13:53 Dose: 1 mg Amikacin Sulfate 250 mg/ (Sodium Chloride) 101 mls @ 100.609 mls/hr [facility] Last Admin: 10/16/16 10:40 Dose: 100.609 mls/hr Meropenem 500 mg/ Sodium (Chloride) 100 mls @ 100 mls/hr IVPB DAILY@0100 [facility] Last Admin: 10/17/16 00:31 Dose: 100 mls/hr Piperacillin Sod/Tazobactam (Sod 2.25 gm/ Sodium Chloride) 100 mls @ 100 mls/ hr IVPB Q12@0600,1800 [facility] Last Admin: 10/17/16 05:50 Dose: 100 mls/hr Sodium Chloride (Sodium Chloride 0.9%) 1,000 mls @ 10 mls/hr IV .Q24H [facility] Last Admin: 10/16/16 17:37 Dose: 10 mls/hr Linezolid (Zyvox 600mg/300ml D5w) 600 mg in 300 mls @ 300 mls/hr IVPB Q12@0800, 2000 [facility] Last Admin: 10/17/16 09:28 Dose: 300 mls/hr Insulin Detemir (Levemir) [address] [facility] Last Admin: 06/07/17 22:42 Dose: 30 units Insulin Human Lispro (Humalog) 8 units SC AC [facility] Last Admin: 10/17/16 08:30 Dose: 8 units Lidocaine (Lidoderm) 1 ea TD DAILY [facility] Last Admin: 10/17/16 09:24 Dose: Not Given Nystatin (Mycostatin Oint) 1 applic TOP TID [facility] Last Admin: 10/17/16 09:26 Dose: 1 applic Ondansetron HCl (Zofran Inj) 4 mg IVP Q6 PRN PRN Reason: Nausea/Vomiting Last Admin: 09/19/16 10:26 Dose: 4 mg Pantoprazole Sodium (Protonix Ec Tab) 40 mg PO DAILY [facility] Last Admin: 10/17/16 09:27 Dose: 40 mg Phenylephrine HCl (Dagoberto-Synephrine 0.5% Nasal [place]) 1 spry ALLAN Q4 PRN PRN Reason: Nasal congestion Sevelamer HCl (Renagel) 1,600 mg PO TID [facility] Last Admin: 10/17/16 09:27 Dose: 1,600 mg Topiramate (Topamax) 50 mg PO BID [facility] Last Admin: 10/17/16 09:27 Dose: 50 mg Vitamin B Complex/Vit C/Folic Acid (Nephro-Ajay) 1 tab PO DAILY [facility] Last Admin: 10/17/16 09:26 Dose: 1 tab - Labs Labs: 10/16/16 11:00 10/16/16 11:00 PT 17.6 Seconds (9.8-13.1) H 10/15/16 07:00 INR 1.5 (0.9-1.2) H 10/15/16 07:00 APTT 36.6 Seconds (25.6-37.1) 10/15/16 07:00 Attending/Attestation - Attestation I have personally seen and examined this patient.: Yes I have fully participated in the care of the patient.: Yes I have reviewed all pertinent clinical information, including history, physical exam and plan: Yes Notes (Text): 10/17/16 16:17 Patient seen and examined. Overall remains clinically stable, afebrile with stable vital signs at baseline. There is no increased level of pain in the right BKA stump. VAC dressing was changed at the bedside - there is no tissue necrosis, purulence , krystal pus, cellulitis or erythema. There is adequate granulation tissue formation. Continue current treatment. Continue VAC and local wound care. Will follow closely.
[2016-10-17] MEDS: Insulin Lispro (humaLOG) 100 Units/ml Inj SC SCH ×3 (08:30→17:27)
[2016-10-17] MEDS: Hydrocortisone 2.5% (Rectal) CREAM PR SCH ×2 (09:16→17:25)
[2016-10-17] MEDS: Lidocaine 5% Patch TD SCH (09:24)
[2016-10-17] MEDS: Nystatin Ointment TOP SCH ×3 (09:26→17:29)
[2016-10-17] MEDS: Multivitamin Vitamin B Complex (Nephro-Vite) Tab PO SCH (09:26)
--- NOTE | 2016-10-17 09:26 | CP.PCM.PN ---
Subjective - Date & Time of Evaluation Date of Evaluation: 10/17/16 Time of Evaluation: 09:24 - Subjective Subjective: Pt seems to be doing better. Her hg is 10.2gms. There is a slight wound dehiscence and this will probably be taken care of tomorrow, Objective - Vital Signs/Intake and Output Vital Signs (last 24 hours): Temp Pulse Resp BP Pulse Ox 98.0 F 118 H 18 132/79 99 10/17/16 07:42 10/17/16 07:42 10/17/16 07:42 10/17/16 07:42 10/17/16 07:42 - Medications Medications: Current Medications Acetaminophen (Tylenol 325mg Tab) 650 mg PO Q4 PRN PRN Reason: Fever >100.4 F Last Admin: 10/02/16 16:27 Dose: 650 mg Acetaminophen (Tylenol 325mg Tab) 650 mg PO Q4 PRN PRN Reason: Pain, moderate (4-7) Last Admin: 09/16/16 22:34 Dose: 650 mg Albuterol Sulfate (Albuterol 0.083% Inhal Barbie (2.5 Mg/3 Ml) Ud) 2.5 mg INH RQ4 PRN PRN Reason: Shortness of Breath Albuterol/Ipratropium (Duoneb 3 Mg/0.5 Mg (3 Ml) Ud) 3 ml INH RQ4 PRN PRN Reason: Shortness of Breath Apixaban (Eliquis) 5 mg PO BID [facility] PRN Reason: Protocol Last Admin: 10/16/16 17:21 Dose: 5 mg Aspirin (Ecotrin) 81 mg PO DAILY [facility] Last Admin: 10/16/16 08:38 Dose: 81 mg Atorvastatin Calcium (Lipitor) 40 mg PO DAILY [facility] Last Admin: 10/16/16 08:38 Dose: 40 mg Benzonatate (Tessalon Perles) 200 mg PO TID PRN PRN Reason: Cough Last Admin: 10/02/16 14:07 Dose: 200 mg Cinacalcet (Sensipar) 30 mg PO DAILY [facility] Last Admin: 10/16/16 08:38 Dose: 30 mg Diphenhydramine HCl (Benadryl) 25 mg PO Q6 PRN PRN Reason: Itching / Pruritus Epoetin Tha (Procrit) 20,000 unit IV MWF [facility] Last Admin: 10/16/16 10:40 Dose: 20,000 unit Ergocalciferol (Drisdol 50,000 Intl Units Cap) 1 cap PO Q7D [facility] Stop: 11/06/16 11:16 Last Admin: 10/16/16 11:25 Dose: 1 cap Fluconazole (Diflucan) 100 mg PO DAILY [facility] Last Admin: 10/16/16 08:37 Dose: 100 mg Gabapentin (Neurontin) 300 mg PO TID [facility] Last Admin: 10/16/16 17:22 Dose: 300 mg Hydrocortisone (Anusol-Hc) 1 applic [place] BID [facility] Last Admin: 10/16/16 17:21 Dose: Not Given Hydromorphone HCl (Dilaudid) 1 mg IVP Q3H PRN PRN Reason: Pain, severe (8-10) Last Admin: 10/17/16 07:12 Dose: 1 mg Amikacin Sulfate 250 mg/ (Sodium Chloride) 101 mls @ 100.609 mls/hr IVPB MWF [facility] Last Admin: 10/16/16 10:40 Dose: 100.609 mls/hr Meropenem 500 mg/ Sodium (Chloride) 100 mls @ 100 mls/hr IVPB DAILY@0100 [facility] Last Admin: 10/17/16 00:31 Dose: 100 mls/hr Piperacillin Sod/Tazobactam (Sod 2.25 gm/ Sodium Chloride) 100 mls @ 100 mls/ hr IVPB Q12@0600,1800 [facility] Last Admin: 10/17/16 05:50 Dose: 100 mls/hr Sodium Chloride (Sodium Chloride 0.9%) 1,000 mls @ 10 mls/hr IV .Q24H [facility] Last Admin: 10/16/16 17:37 Dose: 10 mls/hr Linezolid (Zyvox 600mg/300ml D5w) 600 mg in 300 mls @ 300 mls/hr IVPB Q12@0800, 2000 [facility] Last Admin: 10/16/16 20:41 Dose: 300 mls/hr Insulin Detemir (Levemir) 30 units SC HS [facility] Last Admin: 10/16/16 22:42 Dose: 30 units Insulin Human Lispro (Humalog) 8 units SC AC [facility] Last Admin: 10/16/16 17:21 Dose: 8 units Lidocaine (Lidoderm) 1 ea TD DAILY [facility] Last Admin: 10/16/16 10:37 Dose: Not Given Nystatin (Mycostatin Oint) 1 applic TOP TID [facility] Last Admin: 10/16/16 17:21 Dose: 1 applic Ondansetron HCl (Zofran Inj) 4 mg IVP Q6 PRN PRN Reason: Nausea/Vomiting Last Admin: 09/19/16 10:26 Dose: 4 mg Pantoprazole Sodium (Protonix Ec Tab) 40 mg PO DAILY [facility] Last Admin: 10/16/16 08:38 Dose: 40 mg Phenylephrine HCl (Dagoberto-Synephrine 0.5% Nasal [place]) 1 spry ALLAN Q4 PRN PRN Reason: Nasal congestion Sevelamer HCl (Renagel) 1,600 mg PO TID [facility] Last Admin: 10/16/16 17:21 Dose: 1,600 mg Topiramate (Topamax) 50 mg PO BID [facility] Last Admin: 10/16/16 17:21 Dose: 50 mg Vitamin B Complex/Vit C/Folic Acid (Nephro-Ajay) 1 tab PO DAILY [facility] Last Admin: 10/16/16 08:38 Dose: 1 tab - Labs Labs: 10/16/16 11:00 10/16/16 11:00 PT 17.6 Seconds (9.8-13.1) H 10/15/16 07:00 INR 1.5 (0.9-1.2) H 10/15/16 07:00 APTT 36.6 Seconds (25.6-37.1) 10/15/16 07:00
[2016-10-17] MEDS: Pantoprazole 40 mg EC Tab PO SCH (09:27)
[2016-10-17] MEDS: Linezolid 600 mg in D5W 300 ml 600 MG/300 ML BAG IVPB SCH ×2 (09:28→20:00)
--- NOTE | 2016-10-17 11:02 | CP.PCM.PN ---
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 also status post debridement on the stump Intravenous antibiotics as per primary team White count normal hemoglobin is acceptable as noted End stage renal disease continue dialysis MWF Objective - Vital Signs/Intake and Output Vital Signs (last 24 hours): Temp Pulse Resp BP Pulse Ox 98.0 F 118 H 18 132/79 99 10/17/16 07:42 10/17/16 07:42 10/17/16 07:42 10/17/16 07:42 10/17/16 07:42 - Medications Medications: Current Medications Acetaminophen (Tylenol 325mg Tab) 650 mg PO Q4 PRN PRN Reason: Fever >100.4 F Last Admin: 10/02/16 16:27 Dose: 650 mg Acetaminophen (Tylenol 325mg Tab) 650 mg PO Q4 PRN PRN Reason: Pain, moderate (4-7) Last Admin: 09/16/16 22:34 Dose: 650 mg Albuterol Sulfate (Albuterol 0.083% Inhal Barbie (2.5 Mg/3 Ml) Ud) 2.5 mg INH RQ4 PRN PRN Reason: Shortness of Breath Albuterol/Ipratropium (Duoneb 3 Mg/0.5 Mg (3 Ml) Ud) 3 ml INH RQ4 PRN PRN Reason: Shortness of Breath Apixaban (Eliquis) 5 mg PO BID [facility] PRN Reason: Protocol Last Admin: 10/17/16 09:20 Dose: 5 mg Aspirin (Ecotrin) 81 mg PO DAILY [facility] Last Admin: 10/17/16 09:19 Dose: 81 mg Atorvastatin Calcium (Lipitor) 40 mg PO DAILY [facility] Last Admin: 10/17/16 09:24 Dose: 40 mg Benzonatate (Tessalon Perles) 200 mg PO TID PRN PRN Reason: Cough Last Admin: 10/02/16 14:07 Dose: 200 mg Cinacalcet (Sensipar) 30 mg PO DAILY [facility] Last Admin: 10/17/16 09:27 Dose: 30 mg Diphenhydramine HCl (Benadryl) 25 mg PO Q6 PRN PRN Reason: Itching / Pruritus Epoetin Tha (Procrit) 20,000 unit IV MWF [facility] Last Admin: 10/16/16 10:40 Dose: 20,000 unit Ergocalciferol (Drisdol 50,000 Intl Units Cap) 1 cap PO Q7D [facility] Stop: 11/06/16 11:16 Last Admin: 10/16/16 11:25 Dose: 1 cap Fluconazole (Diflucan) 100 mg PO DAILY [facility] Last Admin: 10/17/16 09:18 Dose: 100 mg Gabapentin (Neurontin) 300 mg PO TID [facility] Last Admin: 10/17/16 09:26 Dose: 300 mg Hydrocortisone (Anusol-Hc) 1 applic [facility] BID [facility] Last Admin: 10/17/16 09:16 Dose: Not Given Hydromorphone HCl (Dilaudid) 1 mg IVP Q3H PRN PRN Reason: Pain, severe (8-10) Last Admin: 10/17/16 07:12 Dose: 1 mg Amikacin Sulfate 250 mg/ (Sodium Chloride) 101 mls @ 100.609 mls/hr IVPB [facility] Last Admin: 10/16/16 10:40 Dose: 100.609 mls/hr Meropenem 500 mg/ Sodium (Chloride) 100 mls @ 100 mls/hr IVPB DAILY@0100 [facility] Last Admin: 10/17/16 00:31 Dose: 100 mls/hr Piperacillin Sod/Tazobactam (Sod 2.25 gm/ Sodium Chloride) 100 mls @ 100 mls/ hr IVPB Q12@0600,1800 [facility] Last Admin: 10/17/16 05:50 Dose: 100 mls/hr Sodium Chloride (Sodium Chloride 0.9%) 1,000 mls @ 10 mls/hr IV .Q24H [facility] Last Admin: 10/16/16 17:37 Dose: 10 mls/hr Linezolid (Zyvox 600mg/300ml D5w) 600 mg in 300 mls @ 300 mls/hr IVPB Q12@0800, 2000 [facility] Last Admin: 10/17/16 09:28 Dose: 300 mls/hr Insulin Detemir (Levemir) 30 units SC HS [facility] Last Admin: 10/16/16 22:42 Dose: 30 units Insulin Human Lispro (Humalog) 8 units SC AC [facility] Last Admin: 10/17/16 08:30 Dose: 8 units Lidocaine (Lidoderm) 1 ea TD DAILY [facility] Last Admin: 10/17/16 09:24 Dose: Not Given Nystatin (Mycostatin Oint) 1 applic TOP TID [facility] Last Admin: 10/17/16 09:26 Dose: 1 applic Ondansetron HCl (Zofran Inj) 4 mg IVP Q6 PRN PRN Reason: Nausea/Vomiting Last Admin: 09/19/16 10:26 Dose: 4 mg Pantoprazole Sodium (Protonix Ec Tab) 40 mg PO DAILY [facility] Last Admin: 10/17/16 09:27 Dose: 40 mg Phenylephrine HCl (Dagoberto-Synephrine 0.5% Nasal Meredith) 1 spry ALLAN Q4 PRN PRN Reason: Nasal congestion Sevelamer HCl (Renagel) 1,600 mg PO TID [facility] Last Admin: 10/17/16 09:27 Dose: 1,600 mg Topiramate (Topamax) 50 mg PO BID [facility] Last Admin: 10/17/16 09:27 Dose: 50 mg Vitamin B Complex/Vit C/Folic Acid (Nephro-Ajay) 1 tab PO DAILY [facility] Last Admin: 10/17/16 09:26 Dose: 1 tab - Labs Labs: 10/16/16 11:00 10/16/16 11:00 PT 17.6 Seconds (9.8-13.1) H 10/15/16 07:00 INR 1.5 (0.9-1.2) H 10/15/16 07:00 APTT 36.6 Seconds (25.6-37.1) 10/15/16 07:00 Assessment and Plan (1) ESRD (end stage renal disease) Status: Chronic (2) Cellulitis of leg Status: Chronic
--- NOTE | 2016-10-17 14:24 | CP.PCM.PN ---
Subjective - Date & Time of Evaluation Date of Evaluation: 10/17/16 Time of Evaluation: 14:18 - Subjective Subjective: Patient just had change of wound vac by Dr. Mccormack, who is guardedly optimistic about prospects for healing. She continues on 4 iv antibiotic and po diflucan. As noted by Dr. Evita Shepard, Hg is 10.2, wbc OK and no fevers. She had slight epistaxis yesterday, relieved by phenylephrine solution on a cotton ball and nasal pressure.' No further vaginal bleeding. Continues on Eliquis and aspirin. DM controlled. HD proceeding well. Patient is not yet ready for acute rehabilitation as we need to see better wound healing, but PT and OT continue. Objective - Vital Signs/Intake and Output Vital Signs (last 24 hours): Temp Pulse Resp BP Pulse Ox 98.0 F 118 H 18 132/79 99 10/17/16 07:42 10/17/16 07:42 10/17/16 07:42 10/17/16 07:42 10/17/16 07:42 - Medications Medications: Current Medications Acetaminophen (Tylenol 325mg Tab) 650 mg PO Q4 PRN PRN Reason: Fever >100.4 F Last Admin: 10/02/16 16:27 Dose: 650 mg Acetaminophen (Tylenol 325mg Tab) 650 mg PO Q4 PRN PRN Reason: Pain, moderate (4-7) Last Admin: 09/16/16 22:34 Dose: 650 mg Albuterol Sulfate (Albuterol 0.083% Inhal Barbie (2.5 Mg/3 Ml) Ud) 2.5 mg INH RQ4 PRN PRN Reason: Shortness of Breath Albuterol/Ipratropium (Duoneb 3 Mg/0.5 Mg (3 Ml) Ud) 3 ml INH RQ4 PRN PRN Reason: Shortness of Breath Apixaban (Eliquis) 5 mg PO BID JASPER PRN Reason: Protocol Last Admin: 10/17/16 09:20 Dose: 5 mg Aspirin (Ecotrin) 81 mg PO DAILY [facility] Last Admin: 10/17/16 09:19 Dose: 81 mg Atorvastatin Calcium (Lipitor) 40 mg PO DAILY [facility] Last Admin: 10/17/16 09:24 Dose: 40 mg Benzonatate (Tessalon Perles) 200 mg PO TID PRN PRN Reason: Cough Last Admin: 10/02/16 14:07 Dose: 200 mg Cinacalcet (Sensipar) 30 mg PO DAILY [facility] Last Admin: 10/17/16 09:27 Dose: 30 mg Diphenhydramine HCl (Benadryl) 25 mg PO Q6 PRN PRN Reason: Itching / Pruritus Epoetin Tha (Procrit) 20,000 [facility] Last Admin: 10/16/16 10:40 Dose: 20,000 unit Ergocalciferol (Drisdol 50,000 Intl Units Cap) 1 cap PO Q7D [facility] Stop: 11/06/16 11:16 Last Admin: 10/16/16 11:25 Dose: 1 cap Fluconazole (Diflucan) 100 mg PO DAILY [facility] Last Admin: 10/17/16 09:18 Dose: 100 mg Gabapentin (Neurontin) 300 mg PO TID [facility] Last Admin: 10/17/16 09:26 Dose: 300 mg Hydrocortisone (Anusol-Hc) 1 applic AL BID [facility] Last Admin: 10/17/16 09:16 Dose: Not Given Hydromorphone HCl (Dilaudid) 1 mg IVP Q3H PRN PRN Reason: Pain, severe (8-10) Last Admin: 10/17/16 13:53 Dose: 1 mg Amikacin Sulfate 250 mg/ (Sodium Chloride) 101 mls @ 100.609 mls/hr [facility]PB [facility] Last Admin: 10/16/16 10:40 Dose: 100.609 mls/hr Meropenem 500 mg/ Sodium (Chloride) 100 mls @ 100 mls/hr IVPB DAILY@0100 [facility] Last Admin: 10/17/16 00:31 Dose: 100 mls/hr Piperacillin Sod/Tazobactam (Sod 2.25 gm/ Sodium Chloride) 100 mls @ 100 mls/ hr IVPB Q12@0600,1800 [facility] Last Admin: 10/17/16 05:50 Dose: 100 mls/hr Sodium Chloride (Sodium Chloride 0.9%) 1,000 mls @ 10 mls/hr IV .Q24H [facility] Last Admin: 10/16/16 17:37 Dose: 10 mls/hr Linezolid (Zyvox 600mg/300ml D5w) 600 mg in 300 mls @ 300 mls/hr IVPB Q12@0800, 1999 [facility] Last Admin: 10/17/16 09:28 Dose: 300 mls/hr Insulin Detemir (Levemir) 30 units SC HS [facility] Last Admin: 10/16/16 22:42 Dose: 30 units Insulin Human Lispro (Humalog) 8 units SC AC [facility] Last Admin: 10/17/16 08:30 Dose: 8 units Lidocaine (Lidoderm) 1 ea TD DAILY [facility] Last Admin: 10/17/16 09:24 Dose: Not Given Nystatin (Mycostatin Oint) 1 applic TOP TID [facility] Last Admin: 10/17/16 09:26 Dose: 1 applic Ondansetron HCl (Zofran Inj) 4 mg IVP Q6 PRN PRN Reason: Nausea/Vomiting Last Admin: 09/19/16 10:26 Dose: 4 mg Pantoprazole Sodium (Protonix Ec Tab) 40 mg PO DAILY [facility] Last Admin: 10/17/16 09:27 Dose: 40 mg Phenylephrine HCl (Dagoberto-Synephrine 0.5% Nasal [place]) 1 spry ALLAN Q4 PRN PRN Reason: Nasal congestion Sevelamer HCl (Renagel) 1,600 mg PO TID [facility] Last Admin: 10/17/16 09:27 Dose: 1,600 mg Topiramate (Topamax) 50 mg PO BID [facility] Last Admin: 10/17/16 09:27 Dose: 50 mg Vitamin B Complex/Vit C/Folic Acid (Nephro-Ajay) 1 tab PO DAILY [facility] Last Admin: 10/17/16 09:26 Dose: 1 tab - Labs Labs: 10/16/16 11:00 10/16/16 11:00 PT 17.6 Seconds (9.8-13.1) H 10/15/16 07:00 INR 1.5 (0.9-1.2) H 10/15/16 07:00 APTT 36.6 Seconds (25.6-37.1) 10/15/16 07:00 - Constitutional Appears: Other (Pt needed iv Dilaudid when wound vac was changed. Otherwise she is OK.) - Head Exam Head Exam: NORMAL INSPECTION - Eye Exam Eye Exam: Normal appearance - ENT Exam ENT Exam: Mucous Membranes Moist - Neck Exam Neck Exam: Normal Inspection - Respiratory Exam Respiratory Exam: Clear to Ausculation Bilateral, NORMAL BREATHING PATTERN - Cardiovascular Exam Cardiovascular Exam: REGULAR RHYTHM, +S1, +S2 - GI/Abdominal Exam GI & Abdominal Exam: Soft - Extremities Exam Additional comments: Wound vac and DEMIAN in place. I did not get to see the wound, but Dr. Mccormack says it is clean and slowly healing. - Back Exam Back Exam: NORMAL INSPECTION - Neurological Exam Neurological Exam: Alert, Awake, CN II-XII Intact, Oriented x3 - Skin Skin Exam: Dry, Normal Color, Warm Assessment and Plan (1) Status post below knee amputation of right lower extremity Assessment & Plan: Healing - guarded optimism. Continue iv and po antibiotics. Status: Acute (2) Osteomyelitis of ankle or foot Status: Acute (3) ESRD (end stage renal disease) on dialysis Status: Chronic (4) DM type 2 (diabetes mellitus, type 2) Status: Chronic (5) Coagulopathy Status: Chronic (6) Anemia, blood loss Status: Acute (7) Peripheral arterial occlusive disease Status: Chronic
--- NOTE | 2016-10-17 16:36 | PN ---
DATE: 10/17/2016 LOCATION: Room 663. SUBJECTIVE: This is a 46-year-old female with recent uncontrolled type 2 insulin-requiring diabetes, now being followed closely for metabolic management. Her glycemic levels are much improved at this time, especially noted postoperatively after a right below-knee amputation following underlying sever e right heel osteomyelitis and significant peripheral arterial vasculopathy. LABORATORY DATA: Her latest chemistry showed a BUN of 43, sodium 139, potassium 4.1, chloride 98, CO 2 25, glucose 117, and creatinine 6.8. ASSESSMENT AND PLAN: So, at this time, will continue the same basal and bolus insulin regimen as ord ered with Humalog given as 8 units subcutaneous t.i.d. before meals and Levemir given as 30 units sub cutaneous at bedtime daily as ordered. Will titrate incrementally as indicated to optimize metabolic control. Will follow. Irene Ambrose MD cc: [phone] TT: 10/17/2016 16:35:14 Confirmation # [id number] Dictation # [id number] amalia
[2016-10-17 18:03] VITALS: BMI 38.8
[2016-10-17 22:11] LABS: AMIKACIN 9.7 mg/L (see note)
[2016-10-17] MEDS: Insulin Detemir 100 Units/ml Inj SC SCH (22:56)
--- NOTE | 2016-10-17 23:41 | CP.PCM.PN ---
Subjective - Date & Time of Evaluation Date of Evaluation: 10/17/16 Time of Evaluation: 21:05 - Subjective Subjective: Patient cultures from the wound are negative. Patient is not in pain and is not in distress. Patient is not ready yet to go to a Rehab. Patient is receiving Hemodialysis for her ESRD. Her wound is healing adequately. There is no seizures and she is receiving Topamax. She is in a good mood. Objective - Vital Signs/Intake and Output Vital Signs (last 24 hours): Temp Pulse Resp BP Pulse Ox 97.4 F L 104 H 20 93/56 L 98 10/17/16 16:21 10/17/16 16:21 10/17/16 16:21 10/17/16 16:21 10/17/16 16:21 - Medications Medications: Current Medications Acetaminophen (Tylenol 325mg Tab) 650 mg PO Q4 PRN PRN Reason: Fever >100.4 F Last Admin: 10/02/16 16:27 Dose: 650 mg Acetaminophen (Tylenol 325mg Tab) 650 mg PO Q4 PRN PRN Reason: Pain, moderate (4-7) Last Admin: 09/16/16 22:34 Dose: 650 mg Albuterol Sulfate (Albuterol 0.083% Inhal Barbie (2.5 Mg/3 Ml) Ud) 2.5 mg INH RQ4 PRN PRN Reason: Shortness of Breath Albuterol/Ipratropium (Duoneb 3 Mg/0.5 Mg (3 Ml) Ud) 3 ml INH RQ4 PRN PRN Reason: Shortness of Breath Apixaban (Eliquis) 5 mg PO BID JASPER PRN Reason: Protocol Last Admin: 10/17/16 17:26 Dose: 5 mg Aspirin (Ecotrin) 81 mg PO DAILY [facility] Last Admin: 10/17/16 09:19 Dose: 81 mg Atorvastatin Calcium (Lipitor) 40 mg PO DAILY [facility] Last Admin: 10/17/16 09:24 Dose: 40 mg Benzonatate (Tessalon Perles) 200 mg PO TID PRN PRN Reason: Cough Last Admin: 10/02/16 14:07 Dose: 200 mg Cinacalcet (Sensipar) 30 mg PO DAILY [facility] Last Admin: 10/17/16 09:27 Dose: 30 mg Diphenhydramine HCl (Benadryl) 25 mg PO Q6 PRN PRN Reason: Itching / Pruritus Epoetin Tha (Procrit) 20,000 unit IV MWF [facility] Last Admin: 10/16/16 10:40 Dose: 20,000 unit Ergocalciferol (Drisdol 50,000 Intl Units Cap) 1 cap PO Q7D [facility] Stop: 11/06/16 11:16 Last Admin: 10/16/16 11:25 Dose: 1 cap Fluconazole (Diflucan) 100 mg PO DAILY [facility] Last Admin: 10/17/16 09:18 Dose: 100 mg Gabapentin (Neurontin) 300 mg PO TID [facility] Last Admin: 10/17/16 17:30 Dose: 300 mg Hydrocortisone (Anusol-Hc) 1 applic [place] BID [facility] Last Admin: 10/17/16 17:25 Dose: Not Given Hydromorphone HCl (Dilaudid) 1 mg IVP Q3H PRN PRN Reason: Pain, severe (8-10) Last Admin: 10/17/16 20:11 Dose: 1 mg Amikacin Sulfate 250 mg/ (Sodium Chloride) 101 mls @ 100.609 mls/hr IVPB [facility] Last Admin: 10/16/16 10:40 Dose: 100.609 mls/hr Meropenem 500 mg/ Sodium (Chloride) 100 mls @ 100 mls/hr IVPB DAILY@0100 [facility] Last Admin: 10/17/16 00:31 Dose: 100 mls/hr Piperacillin Sod/Tazobactam (Sod 2.25 gm/ Sodium Chloride) 100 mls @ 100 mls/ hr IVPB Q12@0600,1800 [facility] Last Admin: 10/17/16 17:33 Dose: 100 mls/hr Sodium Chloride (Sodium Chloride 0.9%) 1,000 mls @ 10 mls/hr IV .Q24H [facility] Last Admin: 10/16/16 17:37 Dose: 10 mls/hr Linezolid (Zyvox 600mg/300ml D5w) 600 mg in 300 mls @ 300 mls/hr IVPB Q12@0800, 2000 [facility] Last Admin: 10/17/16 20:00 Dose: 300 mls/hr Insulin Detemir (Levemir) 30 units SC HS [facility] Last Admin: 10/17/16 22:56 Dose: 30 units Insulin Human Lispro (Humalog) 8 units SC AC [facility] Last Admin: 10/17/16 17:27 Dose: 8 units Lidocaine (Lidoderm) 1 ea TD DAILY [facility] Last Admin: 10/17/16 09:24 Dose: Not Given Nystatin (Mycostatin Oint) 1 applic TOP TID [facility] Last Admin: 10/17/16 17:29 Dose: 1 applic Ondansetron HCl (Zofran Inj) 4 mg IVP Q6 PRN PRN Reason: Nausea/Vomiting Last Admin: 09/19/16 10:26 Dose: 4 mg Pantoprazole Sodium (Protonix Ec Tab) 40 mg PO DAILY [facility] Last Admin: 10/17/16 09:27 Dose: 40 mg Phenylephrine HCl (Dagoberto-Synephrine 0.5% Nasal [place]) 1 spry ALLAN Q4 PRN PRN Reason: Nasal congestion Sevelamer HCl (Renagel) 1,600 mg PO TID [facility] Last Admin: 10/17/16 17:32 Dose: 1,600 mg Topiramate (Topamax) 50 mg PO BID [facility] Last Admin: 10/17/16 17:32 Dose: 50 mg Vitamin B Complex/Vit C/Folic Acid (Nephro-Ajay) 1 tab PO DAILY [facility] Last Admin: 10/17/16 09:26 Dose: 1 tab - Labs Labs: 10/16/16 11:00 10/16/16 11:00 PT 17.6 Seconds (9.8-13.1) H 10/15/16 07:00 INR 1.5 (0.9-1.2) H 10/15/16 07:00 APTT 36.6 Seconds (25.6-37.1) 10/15/16 07:00 Assessment and Plan (1) Diabetes Status: Chronic (2) ESRD (end stage renal disease) Status: Chronic (3) Cellulitis of leg Status: Chronic (4) Hyperlipidemia Status: Chronic (5) Back pain Status: Acute (6) Bacteremia due to Gram-negative bacteria Status: Acute (7) Diabetes mellitus type 2 with peripheral artery disease Status: Acute (8) PVD (peripheral vascular disease) Status: Acute (9) Osteomyelitis of right foot Status: Acute (10) Fungal infection right foot Status: Acute
[2016-10-18] MEDS: Meropenem 500 MG in Sodium Chloride 0.9% 100 ML IVPB SCH (01:45)
--- NOTE | 2016-10-18 07:38 | CP.PCM.PN ---
Subjective - Date & Time of Evaluation Date of Evaluation: 10/18/16 Time of Evaluation: 06:40 - Subjective Subjective: This is a vascular surgery progress note for Dr. Mccormack: 46 y/o female patient 3 days s/p I&D of Right BKA stump (BKA 10/01/2016) on was seen at bedside this morning. Mild sanguinous strikethrough noted from the dressing to right BKA site. Patient complains of mild pain to the BKA site during dressing change today. Patient is due for dialysis today. Patient denies of N/V/F/C or SOB today. Wound VAC functioning Objective - Vital Signs/Intake and Output Vital Signs (last 24 hours): Temp Pulse Resp BP Pulse Ox 97.5 F L 110 H 17 136/77 95 10/18/16 00:13 10/18/16 00:13 10/18/16 00:13 10/18/16 00:13 10/18/16 00:13 - Medications Medications: Current Medications Acetaminophen (Tylenol 325mg Tab) 650 mg PO Q4 PRN PRN Reason: Fever >100.4 F Last Admin: 10/02/16 16:27 Dose: 650 mg Acetaminophen (Tylenol 325mg Tab) 650 mg PO Q4 PRN PRN Reason: Pain, moderate (4-7) Last Admin: 09/16/16 22:34 Dose: 650 mg Albuterol Sulfate (Albuterol 0.083% Inhal Barbie (2.5 Mg/3 Ml) Ud) 2.5 mg INH RQ4 PRN PRN Reason: Shortness of Breath Albuterol/Ipratropium (Duoneb 3 Mg/0.5 Mg (3 Ml) Ud) 3 ml INH RQ4 PRN PRN Reason: Shortness of Breath Apixaban (Eliquis) 5 mg PO BID JASPER PRN Reason: Protocol Last Admin: 10/17/16 17:26 Dose: 5 mg Aspirin (Ecotrin) 81 mg PO DAILY [facility] Last Admin: 10/17/16 09:19 Dose: 81 mg Atorvastatin Calcium (Lipitor) 40 mg PO DAILY [facility] Last Admin: 10/17/16 09:24 Dose: 40 mg Benzonatate (Tessalon Perles) 200 mg PO TID PRN PRN Reason: Cough Last Admin: 10/02/16 14:07 Dose: 200 mg Cinacalcet (Sensipar) 30 mg PO DAILY [facility] Last Admin: 10/17/16 09:27 Dose: 30 mg Diphenhydramine HCl (Benadryl) 25 mg PO Q6 PRN PRN Reason: Itching / Pruritus Epoetin Tha (Procrit) 20,000 unit IV MWF [facility] Last Admin: 10/16/16 10:40 Dose: 20,000 unit Ergocalciferol (Drisdol 50,000 Intl Units Cap) 1 cap PO Q7D [facility] Stop: 11/06/16 11:16 Last Admin: 10/16/16 11:25 Dose: 1 cap Fluconazole (Diflucan) 100 mg PO DAILY [facility] Last Admin: 10/17/16 09:18 Dose: 100 mg Gabapentin (Neurontin) 300 mg PO TID [facility] Last Admin: 10/17/16 17:30 Dose: 300 mg Hydrocortisone (Anusol-Hc) 1 applic CO BID [facility] Last Admin: 10/17/16 17:25 Dose: Not Given Hydromorphone HCl (Dilaudid) 1 mg IVP Q3H PRN PRN Reason: Pain, severe (8-10) Last Admin: 10/18/16 07:26 Dose: 1 mg Amikacin Sulfate 250 mg/ (Sodium Chloride) 101 mls @ 100.609 mls/hr [facility] Last Admin: 10/16/16 10:40 Dose: 100.609 mls/hr Meropenem 500 mg/ Sodium (Chloride) 100 mls @ 100 mls/hr IVPB DAILY@0100 [facility] Last Admin: 10/18/16 01:45 Dose: 100 mls/hr Piperacillin Sod/Tazobactam (Sod 2.25 gm/ Sodium Chloride) 100 mls @ 100 mls/ hr IVPB Q12@0600,1800 [facility] Last Admin: 10/18/16 06:42 Dose: 100 mls/hr Sodium Chloride (Sodium Chloride 0.9%) 1,000 mls @ 10 mls/hr IV .Q24H [facility] Last Admin: 10/16/16 17:37 Dose: 10 mls/hr Linezolid (Zyvox 600mg/300ml D5w) 600 mg in 300 mls @ 300 mls/hr IVPB Q12@0800, 2000 [facility] Last Admin: 10/17/16 20:00 Dose: 300 mls/hr Insulin Detemir (Levemir) 30 units SC HS [facility] Last Admin: 10/17/16 22:56 Dose: 30 units Insulin Human Lispro (Humalog) 8 units SC AC [facility] Last Admin: 10/17/16 17:27 Dose: 8 units Lidocaine (Lidoderm) 1 ea TD DAILY [facility] Last Admin: 10/17/16 09:24 Dose: Not Given Nystatin (Mycostatin Oint) 1 applic TOP TID [facility] Last Admin: 10/17/16 17:29 Dose: 1 applic Ondansetron HCl (Zofran Inj) 4 mg IVP Q6 PRN PRN Reason: Nausea/Vomiting Last Admin: 09/19/16 10:26 Dose: 4 mg Pantoprazole Sodium (Protonix Ec Tab) 40 mg PO DAILY [facility] Last Admin: 10/17/16 09:27 Dose: 40 mg Phenylephrine HCl (Dagoberto-Synephrine 0.5% Nasal [place]) 1 spry ALLAN Q4 PRN PRN Reason: Nasal congestion Sevelamer HCl (Renagel) 1,600 mg PO TID [facility] Last Admin: 10/17/16 17:32 Dose: 1,600 mg Topiramate (Topamax) 50 mg PO BID [facility] Last Admin: 10/17/16 17:32 Dose: 50 mg Vitamin B Complex/Vit C/Folic Acid (Nephro-Ajay) 1 tab PO DAILY [facility] Last Admin: 10/17/16 09:26 Dose: 1 tab - Labs Labs: 10/16/16 11:00 10/16/16 11:00 PT 17.6 Seconds (9.8-13.1) H 10/15/16 07:00 INR 1.5 (0.9-1.2) H 10/15/16 07:00 APTT 36.6 Seconds (25.6-37.1) 10/15/16 07:00 - Constitutional Appears: Well, Non-toxic, No Acute Distress - Extremities Exam Additional comments: Dressing to Right knee sanguinous strikethrough noted. Wound VAC functioning at 125 mmHg - Neurological Exam Neurological Exam: Alert, Awake, Oriented x3 - Psychiatric Exam Psychiatric exam: Normal Affect, Normal Mood - Skin Skin Exam: Normal Color, Warm Assessment and Plan - Assessment and Plan (Free Text) Assessment: 46F s/p Incision and drainage, wound VAC placement of Right BKA stump POD#3 ( Right BKA 10/01/16) Plan: - Wound VAC changed yesterday - New dressing applied today with ABD and DEMIAN - Continue pain control prn - WCX: No growth final - Continue knee immobilizer to R stump - Continue PT/OT - s/p Vaginal D&C
[2016-10-18] MEDS: Insulin Lispro (humaLOG) 100 Units/ml Inj SC SCH ×3 (10:17→18:15)
[2016-10-18] MEDS: Lidocaine 5% Patch TD SCH (10:20)
[2016-10-18] MEDS: Nystatin Ointment TOP SCH ×3 (10:22→18:16)
[2016-10-18] MEDS: Multivitamin Vitamin B Complex (Nephro-Vite) Tab PO SCH (10:22)
[2016-10-18] MEDS: Pantoprazole 40 mg EC Tab PO SCH (10:22)
[2016-10-18] MEDS: Linezolid 600 mg in D5W 300 ml 600 MG/300 ML BAG IVPB SCH ×2 (10:23→19:47)
[2016-10-18] MEDS: Hydrocortisone 2.5% (Rectal) CREAM PR SCH ×2 (10:39→18:14)
--- NOTE | 2016-10-18 10:53 | PQF GENQUE ---
Dr. Mccormack, (1) Excisional versus Non -Excisional Debridement (2) If Excisional Debridement: please document the Type of instrument used Op Note: Procedure:Debridement of right below knee amputation stump, pulse lavage irrigation and VAC placement. Description of the procedure includes the following: --The lateral aspect of the right below-knee amputation stump; however, showed an approximately 1 cm wide sliver of dusky looking skin, which was clearly nonviable. There was associated subcutaneous fat necrosis which was not extensive, but nonetheless present. Nonviable skin at the edges of the lateral aspect of the right BKA stump as well as necrotic subcutaneous fat were sharply removed and sent for tissue cultures. I proceeded with my debridement until I got to the oozing and viable looking tissue This form is a permanent part of the medical record Clarification of your documentation is requested to better reflect the severity of illness and intensity of treatment of your patient. Indicators present [] Specify: [] [] Specify: [] [] Specify: [] [] Specify: [] Location in the medical record that reflects the above clinical findings: [] Treatment Provided: [] PHYSICIAN'S RESPONSE Based on your medical judgment of the clinical indicators outlined above please clarify the following: [] Practitioner response [] If unable to determine, please check the box, sign and date. Present On Admission (POA) Indicator: [] Present at the time of admission [] Not present at the time of admission [] Clinically Undetermined In responding to this query, please exercise your independent professional judgment. The fact that a question is asked does not imply that any particular answer is desired or expected. Thank you for your clarification on this documentation. If you have any questions please call. * Thank you, Sandra Reina RN BSN ext. #[phone] MTDD
--- NOTE | 2016-10-18 12:19 | CP.PCM.PN ---
Subjective - Date & Time of Evaluation Date of Evaluation: 10/18/16 Time of Evaluation: 12:17 - Subjective Subjective: Patient is out of bed in the chair She is awake and conscious Hemodialysis about to start Ultrafiltration set to have about 3500 mL as tolerated Potassium about 2 mEq Sodium bath 138 Lab reviewed hemoglobin stable White count normal Again the status post amputation of the right leg was status post debridement And status post amputation of the left leg previously End stage renal disease continue hemodialysis Antibiotics as per primary team Objective - Vital Signs/Intake and Output Vital Signs (last 24 hours): Temp Pulse Resp BP Pulse Ox 97.9 F 58 L 20 103/65 99 10/18/16 08:12 10/18/16 08:12 10/18/16 08:12 10/18/16 08:12 10/18/16 08:12 - Medications Medications: Current Medications Acetaminophen (Tylenol 325mg Tab) 650 mg PO Q4 PRN PRN Reason: Fever >100.4 F Last Admin: 10/02/16 16:27 Dose: 650 mg Acetaminophen (Tylenol 325mg Tab) 650 mg PO Q4 PRN PRN Reason: Pain, moderate (4-7) Last Admin: 09/16/16 22:34 Dose: 650 mg Albuterol Sulfate (Albuterol 0.083% Inhal Barbie (2.5 Mg/3 Ml) Ud) 2.5 mg INH RQ4 PRN PRN Reason: Shortness of Breath Albuterol/Ipratropium (Duoneb 3 Mg/0.5 Mg (3 Ml) Ud) 3 ml INH RQ4 PRN PRN Reason: Shortness of Breath Apixaban (Eliquis) 5 mg PO BID [facility] PRN Reason: Protocol Last Admin: 10/18/16 10:19 Dose: 5 mg Aspirin (Ecotrin) 81 mg PO DAILY [facility] Last Admin: 10/18/16 10:17 Dose: 81 mg Atorvastatin Calcium (Lipitor) 40 mg PO DAILY [facility] Last Admin: 10/18/16 10:41 Dose: 40 mg Benzonatate (Tessalon Perles) 200 mg PO TID PRN PRN Reason: Cough Last Admin: 10/02/16 14:07 Dose: 200 mg Cinacalcet (Sensipar) 30 mg PO DAILY [facility] Last Admin: 10/18/16 10:23 Dose: 30 mg Diphenhydramine HCl (Benadryl) 25 mg PO Q6 PRN PRN Reason: Itching / Pruritus Epoetin Tha (Procrit) 20,000 unit IV MWF [facility] Last Admin: 10/16/16 10:40 Dose: 20,000 unit Ergocalciferol (Drisdol 50,000 Intl Units Cap) 1 cap PO Q7D [facility] Stop: 11/06/16 11:16 Last Admin: 10/16/16 11:25 Dose: 1 cap Fluconazole (Diflucan) 100 mg PO DAILY [facility] Last Admin: 10/18/16 10:16 Dose: 100 mg Gabapentin (Neurontin) 300 mg PO TID [facility] Last Admin: 10/18/16 10:24 Dose: 300 mg Hydrocortisone (Anusol-Hc) 1 applic GA BID [facility] Last Admin: 10/18/16 10:39 Dose: 1 applic Hydromorphone HCl (Dilaudid) 1 mg IVP Q3H PRN PRN Reason: Pain, severe (8-10) Last Admin: 10/18/16 07:26 Dose: 1 mg Amikacin Sulfate 250 mg/ (Sodium Chloride) 101 mls @ 100.609 mls/hr IVPB [facility] [place] Last Admin: 10/18/16 10:41 Dose: 100.609 mls/hr Meropenem 500 mg/ Sodium (Chloride) 100 mls @ 100 mls/hr IVPB DAILY@0100 [facility] Last Admin: 10/18/16 01:45 Dose: 100 mls/hr Piperacillin Sod/Tazobactam (Sod 2.25 gm/ Sodium Chloride) 100 mls @ 100 mls/ hr IVPB Q12@0600,1800 [facility] Last Admin: 10/18/16 06:42 Dose: 100 mls/hr Sodium Chloride (Sodium Chloride 0.9%) 1,000 mls @ 10 mls/hr IV .Q24H [facility] Last Admin: 10/16/16 17:37 Dose: 10 mls/hr Linezolid (Zyvox 600mg/300ml D5w) 600 mg in 300 mls @ 300 mls/hr IVPB Q12@0800, 2000 [facility] Last Admin: 10/18/16 10:23 Dose: 300 mls/hr Insulin Detemir (Levemir) 30 units SC [facility] Last Admin: 10/17/16 22:56 Dose: 30 units Insulin Human Lispro (Humalog) 8 units SC AC [facility] Last Admin: 10/18/16 10:17 Dose: 8 units Lidocaine (Lidoderm) 1 ea TD DAILY [facility] Last Admin: 10/18/16 10:20 Dose: 1 ea Nystatin (Mycostatin Oint) 1 applic TOP TID [facility] Last Admin: 10/18/16 10:22 Dose: 1 applic Ondansetron HCl (Zofran Inj) 4 mg IVP Q6 PRN PRN Reason: Nausea/Vomiting Last Admin: 09/19/16 10:26 Dose: 4 mg Pantoprazole Sodium (Protonix Ec Tab) 40 mg PO DAILY [facility] Last Admin: 10/18/16 10:22 Dose: 40 mg Phenylephrine HCl (Dagoberto-Synephrine 0.5% Nasal [place]) 1 spry ALLAN Q4 PRN PRN Reason: Nasal congestion Sevelamer HCl (Renagel) 1,600 mg PO TID [facility] Last Admin: 10/18/16 10:22 Dose: 1,600 mg Topiramate (Topamax) 50 mg PO BID [facility] Last Admin: 10/18/16 10:23 Dose: 50 mg Vitamin B Complex/Vit C/Folic Acid (Nephro-Ajay) 1 tab PO DAILY [facility] Last Admin: 10/18/16 10:22 Dose: 1 tab - Labs Labs: 10/16/16 11:00 10/16/16 11:00 PT 17.6 Seconds (9.8-13.1) H 10/15/16 07:00 INR 1.5 (0.9-1.2) H 10/15/16 07:00 APTT 36.6 Seconds (25.6-37.1) 10/15/16 07:00 Assessment and Plan (1) ESRD (end stage renal disease) Status: Chronic (2) Cellulitis of leg Status: Chronic
[2016-10-18 12:37] LABS: BASO # 0.1 K/uL (0.0-0.2); BASO % 1.2 % (0.0-2.0); EOS # 0.7 K/uL (0.0-0.7); HEMATOCRIT 30.3 % (34.0-47.0); LYMPH # 1.5 K/uL (1.0-4.3); LYMPH % 17.3 % (20.0-40.0); MEAN CELL VOLUME 92.3 fl (81.0-99.0); MEAN CORPUSCULAR HEMOGLOBIN 29.1 pg (27.0-31.0); MEAN CORPUSCULAR HGB CONC 31.5 g/dL (33.0-37.0); MEAN PLATELET VOLUME 8.5 fl (7.2-11.7); MONO # 0.7 K/uL (0.0-0.8); MONO % 8.2 % (0.0-10.0); NEUT # 5.6 K/uL (1.8-7.0); NEUT % 65.3 % (50.0-75.0); RED CELL DISTRIBUTION WIDTH 18.8 % (11.5-14.5); WHITE BLOOD COUNT 8.5 K/uL (4.8-10.8)
[2016-10-18 12:46] LABS: ALB/GLOB RATIO 0.8 (1.0-2.1); BILIRUBIN,TOTAL 0.5 mg/dl (0.2-1.3); CALCIUM 9.3 mg/dL (8.4-10.2); POTASSIUM 4.4 MMOL/L (3.6-5.0); TOTAL PROTEIN 8.4 G/DL (6.3-8.2)
[2016-10-18] MEDS: Epoetin Alfa 20000 UNIT/ML Inj IV SCH (14:10)
--- NOTE | 2016-10-18 14:36 | CP.PCM.PN ---
Subjective - Date & Time of Evaluation Date of Evaluation: 10/18/16 Time of Evaluation: 14:36 - Subjective Subjective: Patient is sitting up in chair - having hemodialysis to remove 3500 cc. She had a good physical/occupational therapy session this morning, She is moving much better and will soon start of getting from supine to sitting without assistance. No fevers. No cough or dyspnea or chest pain. R BK wound is painful when manipulated. Currently the wound vac is in place with small amount of serosanguinous drainage. In reading Dr. Mccormack's operative report it appears he did remove a subtantial amount of non-viable skin and subcutaneous necrotic fat. He continued his sharp debridement to the level of good bleeding as an indication of viability. Culture of the excised material is negative so far. Will continue the same antibiotics for now. Perhaps we can consider switch from iv to po Zyvox on Mon, 10/21. Will discuss with Dr. Lemon. DM fairly controlled. Dietitian's notice appreciated, and will discuss with Dr. Ambrose and with RD on 10/21. All current medications and diet are to continue. Objective - Vital Signs/Intake and Output Vital Signs (last 24 hours): Temp Pulse Resp BP Pulse Ox 97.9 F 58 L 20 103/65 99 10/18/16 08:12 10/18/16 08:12 10/18/16 08:12 10/18/16 08:12 10/18/16 08:12 - Medications Medications: Current Medications Acetaminophen (Tylenol 325mg Tab) 650 mg PO Q4 PRN PRN Reason: Fever >100.4 F Last Admin: 10/02/16 16:27 Dose: 650 mg Acetaminophen (Tylenol 325mg Tab) 650 mg PO Q4 PRN PRN Reason: Pain, moderate (4-7) Last Admin: 09/16/16 22:34 Dose: 650 mg Albuterol Sulfate (Albuterol 0.083% Inhal Barbie (2.5 Mg/3 Ml) Ud) 2.5 mg INH RQ4 PRN PRN Reason: Shortness of Breath Albuterol/Ipratropium (Duoneb 3 Mg/0.5 Mg (3 Ml) Ud) 3 ml INH RQ4 PRN PRN Reason: Shortness of Breath Apixaban (Eliquis) 5 mg PO BID [facility] PRN Reason: Protocol Last Admin: 10/18/16 10:19 Dose: 5 mg Aspirin (Ecotrin) 81 mg PO DAILY [facility] Last Admin: 10/18/16 10:17 Dose: 81 mg Atorvastatin Calcium (Lipitor) 40 mg PO DAILY [facility] Last Admin: 10/18/16 10:41 Dose: 40 mg Benzonatate (Tessalon Perles) 200 mg PO TID PRN PRN Reason: Cough Last Admin: 10/02/16 14:07 Dose: 200 mg Cinacalcet (Sensipar) 30 mg PO DAILY [facility] Last Admin: 10/18/16 10:23 Dose: 30 mg Diphenhydramine HCl (Benadryl) 25 mg PO Q6 PRN PRN Reason: Itching / Pruritus Epoetin Tha (Procrit) 20,000 unit IV [facility] [place] Last Admin: 10/18/16 14:10 Dose: 20,000 unit Ergocalciferol (Drisdol 50,000 Intl Units Cap) 1 cap PO Q7D [facility] Stop: 11/06/16 11:16 Last Admin: 10/16/16 11:25 Dose: 1 cap Fluconazole (Diflucan) 100 mg PO DAILY [facility] Last Admin: 10/18/16 10:16 Dose: 100 mg Gabapentin (Neurontin) 300 mg PO TID [facility] Last Admin: 10/18/16 14:09 Dose: 300 mg Hydrocortisone (Anusol-Hc) 1 applic ID BID [facility] Last Admin: 10/18/16 10:39 Dose: 1 applic Hydromorphone HCl (Dilaudid) 1 mg IVP Q3H PRN PRN Reason: Pain, severe (8-10) Last Admin: 10/18/16 14:06 Dose: 1 mg Amikacin Sulfate 250 mg/ (Sodium Chloride) 101 mls @ 100.609 mls/hr IVPB MWF [facility] Last Admin: 10/18/16 10:41 Dose: 100.609 mls/hr Meropenem 500 mg/ Sodium (Chloride) 100 mls @ 100 mls/hr IVPB DAILY@0100 [facility] Last Admin: 10/18/16 01:45 Dose: 100 mls/hr Piperacillin Sod/Tazobactam (Sod 2.25 gm/ Sodium Chloride) 100 mls @ 100 mls/ hr IVPB Q12@0600,1800 [facility] Last Admin: 10/18/16 06:42 Dose: 100 mls/hr Sodium Chloride (Sodium Chloride 0.9%) 1,000 mls @ 10 mls/hr IV .Q24H [facility] Last Admin: 10/16/16 17:37 Dose: 10 mls/hr Linezolid (Zyvox 600mg/300ml D5w) 600 mg in 300 mls @ 300 mls/hr IVPB Q12@0800, 2000 [facility] Last Admin: 10/18/16 10:23 Dose: 300 mls/hr Insulin Detemir (Levemir) 30 units SC HS [facility] Last Admin: 10/17/16 22:56 Dose: 30 units Insulin Human Lispro (Humalog) 8 units SC AC [facility] Last Admin: 10/18/16 14:08 Dose: 8 units Lidocaine (Lidoderm) 1 ea TD DAILY [facility] Last Admin: 10/18/16 10:20 Dose: 1 ea Nystatin (Mycostatin Oint) 1 applic TOP TID [facility] Last Admin: 10/18/16 14:09 Dose: 1 applic Ondansetron HCl (Zofran Inj) 4 mg IVP Q6 PRN PRN Reason: Nausea/Vomiting Last Admin: 09/19/16 10:26 Dose: 4 mg Pantoprazole Sodium (Protonix Ec Tab) 40 mg PO DAILY [facility] Last Admin: 10/18/16 10:22 Dose: 40 mg Phenylephrine HCl (Dagoberto-Synephrine 0.5% Nasal [place]) 1 spry ALLAN Q4 PRN PRN Reason: Nasal congestion Sevelamer HCl (Renagel) 1,600 mg PO TID [facility] Last Admin: 10/18/16 14:09 Dose: 1,600 mg Topiramate (Topamax) 50 mg PO BID [facility] Last Admin: 10/18/16 10:23 Dose: 50 mg Vitamin B Complex/Vit C/Folic Acid (Nephro-Ajay) 1 tab PO DAILY [facility] Last Admin: 10/18/16 10:22 Dose: 1 tab - Labs Labs: 10/18/16 12:27 10/18/16 12:27 PT 17.6 Seconds (9.8-13.1) H 10/15/16 07:00 INR 1.5 (0.9-1.2) H 10/15/16 07:00 APTT 36.6 Seconds (25.6-37.1) 10/15/16 07:00 - Constitutional Appears: No Acute Distress - Head Exam Head Exam: NORMAL INSPECTION - Eye Exam Eye Exam: Normal appearance - ENT Exam ENT Exam: Mucous Membranes Moist - Neck Exam Neck Exam: Normal Inspection Additional comments: R subclavian Permacath intact and functioning well. - Respiratory Exam Respiratory Exam: Clear to Ausculation Bilateral, NORMAL BREATHING PATTERN - Cardiovascular Exam Cardiovascular Exam: REGULAR RHYTHM, +S1, +S2 - GI/Abdominal Exam GI & Abdominal Exam: Soft - Extremities Exam Additional comments: Wound vac and dressings intact right residual limb. Knee immobiizer in place. Other extremities as before. - Back Exam Back Exam: NORMAL INSPECTION - Neurological Exam Neurological Exam: Alert, Awake, CN II-XII Intact, Oriented x3 - Psychiatric Exam Psychiatric exam: Normal Affect, Normal Mood - Skin Skin Exam: Dry, Normal Color, Warm Assessment and Plan (1) Status post below knee amputation of right lower extremity Assessment & Plan: Small complication in healing is being addressed with negative pressure wound therapy. IV antibiotics and po diflucan continue. Status: Acute (2) Osteomyelitis of ankle or foot Status: Acute (3) ESRD (end stage renal disease) on dialysis Status: Chronic (4) DM type 2 (diabetes mellitus, type 2) Assessment & Plan: Discussed diet with dietitian. He will reach out to Cameron Ambrose to see if changes should be made. Status: Chronic (5) Coagulopathy Status: Chronic (6) Anemia, blood loss Assessment & Plan: Stable labs. Status: Acute (7) Peripheral arterial occlusive disease Status: Chronic
--- NOTE | 2016-10-18 15:26 | PN ---
DATE: 10/18/2016 ROOM: 663. This is a 46-year-old female with recent uncontrolled type 2 insulin-requiring diabetes, now being fo llowed closely for metabolic management. She underwent a recent right below knee amputation for a se nikole underlying right heel osteomyelitis with severe peripheral arterial vasculopathy and is now bein g followed closely for metabolic management. Her glycemic levels are much improved at this time postoperatively as noted. So for now, we will con tinue the same basal and bolus insulin regimen as ordered with Levemir given as 30 units subQ at bedt jesus daily as given and Humalog given as 8 units subQ t.i.d. before meals as ordered. We will titrate incrementally as indicated to optimize metabolic control. We will follow. Irene Ambrose MD cc: [phone] TT: 10/18/2016 15:25:32 Confirmation # [id number] Dictation # [id number] en
[2016-10-18] MEDS: Insulin Detemir 100 Units/ml Inj SC SCH (21:42)
--- NOTE | 2016-10-18 23:15 | CP.PCM.PN ---
Subjective - Date & Time of Evaluation Date of Evaluation: 10/18/16 Time of Evaluation: 20:30 - Subjective Subjective: No Sezures on Topamax, received Hemodialysis. Patient is not in pain except when touching her amputated sump, she suffers from tenderness. She is out of bed to chair. She is receiving Antibiotics. DM is showing Serum Glucose of 202. Objective - Vital Signs/Intake and Output Vital Signs (last 24 hours): Temp Pulse Resp BP Pulse Ox 97.8 F 119 H 20 135/60 97 10/18/16 15:51 10/18/16 15:51 10/18/16 15:51 10/18/16 15:51 10/18/16 15:51 - Medications Medications: Current Medications Acetaminophen (Tylenol 325mg Tab) 650 mg PO Q4 PRN PRN Reason: Fever >100.4 F Last Admin: 10/02/16 16:27 Dose: 650 mg Acetaminophen (Tylenol 325mg Tab) 650 mg PO Q4 PRN PRN Reason: Pain, moderate (4-7) Last Admin: 09/16/16 22:34 Dose: 650 mg Albuterol Sulfate (Albuterol 0.083% Inhal Barbie (2.5 Mg/3 Ml) Ud) 2.5 mg INH RQ4 PRN PRN Reason: Shortness of Breath Albuterol/Ipratropium (Duoneb 3 Mg/0.5 Mg (3 Ml) Ud) 3 ml INH RQ4 PRN PRN Reason: Shortness of Breath Apixaban (Eliquis) 5 mg PO BID [facility] PRN Reason: Protocol Last Admin: 10/18/16 18:15 Dose: 5 mg Aspirin (Ecotrin) 81 mg PO DAILY [facility] Last Admin: 10/18/16 10:17 Dose: 81 mg Atorvastatin Calcium (Lipitor) 40 mg PO DAILY [facility] Last Admin: 10/18/16 10:41 Dose: 40 mg Benzonatate (Tessalon Perles) 200 mg PO TID PRN PRN Reason: Cough Last Admin: 10/02/16 14:07 Dose: 200 mg Cinacalcet (Sensipar) 30 mg PO DAILY [facility] Last Admin: 10/18/16 10:23 Dose: 30 mg Diphenhydramine HCl (Benadryl) 25 mg PO Q6 PRN PRN Reason: Itching / Pruritus Epoetin Tha (Procrit) 20,000 unit IV MWF [facility] Last Admin: 10/18/16 14:10 Dose: 20,000 unit Ergocalciferol (Drisdol 50,000 Intl Units Cap) 1 cap PO Q7D [facility] Stop: 11/06/16 11:16 Last Admin: 10/16/16 11:25 Dose: 1 cap Fluconazole (Diflucan) 100 mg PO DAILY [facility] Last Admin: 10/18/16 10:16 Dose: 100 mg Gabapentin (Neurontin) 300 mg PO TID [facility] Last Admin: 10/18/16 18:16 Dose: 300 mg Hydrocortisone (Anusol-Hc) 1 applic [place] BID [facility] Last Admin: 10/18/16 18:14 Dose: 1 applic Hydromorphone HCl (Dilaudid) 1 mg IVP Q3H PRN PRN Reason: Pain, severe (8-10) Last Admin: 10/18/16 19:46 Dose: 1 mg Amikacin Sulfate 250 mg/ (Sodium Chloride) 101 mls @ 100.609 mls/hr [facility] Last Admin: 10/18/16 10:41 Dose: 100.609 mls/hr Meropenem 500 mg/ Sodium (Chloride) 100 mls @ 100 mls/hr IVPB DAILY@0100 [facility] Last Admin: 10/18/16 01:45 Dose: 100 mls/hr Piperacillin Sod/Tazobactam (Sod 2.25 gm/ Sodium Chloride) 100 mls @ 100 mls/ hr IVPB Q12@0600,1800 [facility] Last Admin: 10/18/16 18:21 Dose: 100 mls/hr Sodium Chloride (Sodium Chloride 0.9%) 1,000 mls @ 10 mls/hr IV .Q24H [facility] Last Admin: 10/16/16 17:37 Dose: 10 mls/hr Linezolid (Zyvox 600mg/300ml D5w) 600 mg in 300 mls @ 300 mls/hr IVPB Q12@0800, 2000 [facility] Last Admin: 10/18/16 19:47 Dose: 300 mls/hr Insulin Detemir (Levemir) 30 units SC HS [facility] Last Admin: 10/18/16 21:42 Dose: 30 units Insulin Human Lispro (Humalog) 8 units SC AC [facility] Last Admin: 10/18/16 18:15 Dose: 8 units Lidocaine (Lidoderm) 1 ea TD DAILY [facility] Last Admin: 10/18/16 10:20 Dose: 1 ea Nystatin (Mycostatin Oint) 1 applic TOP TID [facility] Last Admin: 10/18/16 18:16 Dose: 1 applic Ondansetron HCl (Zofran Inj) 4 mg IVP Q6 PRN PRN Reason: Nausea/Vomiting Last Admin: 09/19/16 10:26 Dose: 4 mg Pantoprazole Sodium (Protonix Ec Tab) 40 mg PO DAILY [facility] Last Admin: 10/18/16 10:22 Dose: 40 mg Phenylephrine HCl (Dagoberto-Synephrine 0.5% Nasal [place]) 1 spry ALLAN Q4 PRN PRN Reason: Nasal congestion Sevelamer HCl (Renagel) 1,600 mg PO TID [facility] Last Admin: 10/18/16 18:16 Dose: 1,600 mg Topiramate (Topamax) 50 mg PO BID [facility] Last Admin: 10/18/16 18:16 Dose: 50 mg Vitamin B Complex/Vit C/Folic Acid (Nephro-Ajay) 1 tab PO DAILY [facility] Last Admin: 10/18/16 10:22 Dose: 1 tab - Labs Labs: 10/18/16 12:27 10/18/16 12:27 PT 17.6 Seconds (9.8-13.1) H 10/15/16 07:00 INR 1.5 (0.9-1.2) H 10/15/16 07:00 APTT 36.6 Seconds (25.6-37.1) 10/15/16 07:00 Assessment and Plan (1) Diabetes Status: Chronic (2) ESRD (end stage renal disease) Status: Chronic (3) Cellulitis of leg Status: Chronic (4) Hyperlipidemia Status: Chronic (5) Back pain Status: Acute (6) Bacteremia due to Gram-negative bacteria Status: Acute (7) Diabetes mellitus type 2 with peripheral artery disease Status: Acute (8) PVD (peripheral vascular disease) Status: Acute (9) Osteomyelitis of right foot Status: Acute (10) Fungal infection right foot Status: Acute
[2016-10-19] MEDS: Meropenem 500 MG in Sodium Chloride 0.9% 100 ML IVPB SCH (00:37)
--- NOTE | 2016-10-19 08:02 | CP.PCM.PN ---
<Pacheco Jordan - Last Filed: 10/19/16 08:00> Subjective - Date & Time of Evaluation Date of Evaluation: 10/19/16 Time of Evaluation: 07:15 - Subjective Subjective: SURGERY PROGRESS NOTE FOR DR. MCCORMACK 46F seen and examined at bedside. Patient resting comfortably. no complaints. Objective - Vital Signs/Intake and Output Vital Signs (last 24 hours): Temp Pulse Resp BP Pulse Ox 98.1 F 109 H 20 136/60 94 L 10/19/16 07:36 10/19/16 07:36 10/19/16 07:36 10/19/16 07:36 10/19/16 07:36 - Medications Medications: Current Medications Acetaminophen (Tylenol 325mg Tab) 650 mg PO Q4 PRN PRN Reason: Fever >100.4 F Last Admin: 10/02/16 16:27 Dose: 650 mg Acetaminophen (Tylenol 325mg Tab) 650 mg PO Q4 PRN PRN Reason: Pain, moderate (4-7) Last Admin: 09/16/16 22:34 Dose: 650 mg Albuterol Sulfate (Albuterol 0.083% Inhal Barbie (2.5 Mg/3 Ml) Ud) 2.5 mg INH RQ4 PRN PRN Reason: Shortness of Breath Albuterol/Ipratropium (Duoneb 3 Mg/0.5 Mg (3 Ml) Ud) 3 ml INH RQ4 PRN PRN Reason: Shortness of Breath Apixaban (Eliquis) 5 mg PO BID [facility] PRN Reason: Protocol Last Admin: 10/18/16 18:15 Dose: 5 mg Aspirin (Ecotrin) 81 mg PO DAILY [facility] Last Admin: 10/18/16 10:17 Dose: 81 mg Atorvastatin Calcium (Lipitor) 40 mg PO DAILY [facility] Last Admin: 10/18/16 10:41 Dose: 40 mg Benzonatate (Tessalon Perles) 200 mg PO TID PRN PRN Reason: Cough Last Admin: 10/02/16 14:07 Dose: 200 mg Cinacalcet (Sensipar) 30 mg PO DAILY [facility] Last Admin: 10/18/16 10:23 Dose: 30 mg Diphenhydramine HCl (Benadryl) 25 mg PO Q6 PRN PRN Reason: Itching / Pruritus Epoetin Tha (Procrit) 20,000 unit IV MWF [facility] Last Admin: 10/18/16 14:10 Dose: 20,000 unit Ergocalciferol (Drisdol 50,000 Intl Units Cap) 1 cap PO Q7D [facility] Stop: 11/06/16 11:16 Last Admin: 10/16/16 11:25 Dose: 1 cap Fluconazole (Diflucan) 100 mg PO DAILY [facility] Last Admin: 10/18/16 10:16 Dose: 100 mg Gabapentin (Neurontin) 300 mg PO TID [facility] Last Admin: 10/18/16 18:16 Dose: 300 mg Hydrocortisone (Anusol-Hc) 1 applic [place] BID [facility] Last Admin: 10/18/16 18:14 Dose: 1 applic Hydromorphone HCl (Dilaudid) 1 mg IVP Q3H PRN PRN Reason: Pain, severe (8-10) Last Admin: 10/19/16 06:39 Dose: 1 mg Amikacin Sulfate 250 mg/ (Sodium Chloride) 101 mls @ 100.609 [facility]ls[facility] Last Admin: 10/18/16 10:41 Dose: 100.609 mls/hr Meropenem 500 mg/ Sodium (Chloride) 100 mls @ 100 mls/hr IVPB DAILY@0100 [facility] Last Admin: 10/19/16 00:37 Dose: 100 mls/hr Piperacillin Sod/Tazobactam (Sod 2.25 gm/ Sodium Chloride) 100 mls @ 100 mls/ hr IVPB Q12@0600,1800 [facility] Last Admin: 10/19/16 05:25 Dose: 100 mls/hr Sodium Chloride (Sodium Chloride 0.9%) 1,000 mls @ 10 mls/hr IV .Q24H [facility] Last Admin: 10/16/16 17:37 Dose: 10 mls/hr Linezolid (Zyvox 600mg/300ml D5w) 600 mg in 300 mls @ 300 mls/hr IVPB Q12@0800, 2000 [facility] Last Admin: 10/18/16 19:47 Dose: 300 mls/hr Insulin Detemir (Levemir) 30 units SC HS [facility] Last Admin: 10/18/16 21:42 Dose: 30 units Insulin Human Lispro (Humalog) 8 units SC AC [facility] Last Admin: 10/18/16 18:15 Dose: 8 units Lidocaine (Lidoderm) 1 ea TD DAILY [facility] Last Admin: 10/18/16 10:20 Dose: 1 ea Nystatin (Mycostatin Oint) 1 applic TOP TID [facility] Last Admin: 10/18/16 18:16 Dose: 1 applic Ondansetron HCl (Zofran Inj) 4 mg IVP Q6 PRN PRN Reason: Nausea/Vomiting Last Admin: 09/19/16 10:26 Dose: 4 mg Pantoprazole Sodium (Protonix Ec Tab) 40 mg PO DAILY [facility] Last Admin: 10/18/16 10:22 Dose: 40 mg Phenylephrine HCl (Dagoberto-Synephrine 0.5% Nasal [place]) 1 spry ALLAN Q4 PRN PRN Reason: Nasal congestion Sevelamer HCl (Renagel) 1,600 mg PO TID [facility] Last Admin: 10/18/16 18:16 Dose: 1,600 mg Topiramate (Topamax) 50 mg PO BID [facility] Last Admin: 10/18/16 18:16 Dose: 50 mg Vitamin B Complex/Vit C/Folic Acid (Nephro-Ajay) 1 tab PO DAILY [facility] Last Admin: 10/18/16 10:22 Dose: 1 tab - Labs Labs: 10/18/16 12:27 10/18/16 12:27 PT 17.6 Seconds (9.8-13.1) H 10/15/16 07:00 INR 1.5 (0.9-1.2) H 10/15/16 07:00 APTT 36.6 Seconds (25.6-37.1) 10/15/16 07:00 - Constitutional Appears: Non-toxic, No Acute Distress - Respiratory Exam Respiratory Exam: Clear to Ausculation Bilateral, NORMAL BREATHING PATTERN - Cardiovascular Exam Cardiovascular Exam: REGULAR RHYTHM, +S1, +S2 - Extremities Exam Additional comments: b/l BKA, dressing CDI. Assessment and Plan - Assessment and Plan (Free Text) Assessment: 46F s/p right BKA POD18, and right stump wound debridement POD4 - continue wound care - wound vac care Further recs discuss with Dr. Easton Jordan, PGY1 <Raffy Mccormack - Last Filed: 10/19/16 12:11> Objective - Vital Signs/Intake and Output Vital Signs (last 24 hours): Temp Pulse Resp BP Pulse Ox 98.1 F 109 H 20 136/60 94 L 10/19/16 07:36 10/19/16 07:36 10/19/16 07:36 10/19/16 07:36 10/19/16 07:36 - Medications Medications: Current Medications Acetaminophen (Tylenol 325mg Tab) 650 mg PO Q4 PRN PRN Reason: Fever >100.4 F Last Admin: 10/02/16 16:27 Dose: 650 mg Acetaminophen (Tylenol 325mg Tab) 650 mg PO Q4 PRN PRN Reason: Pain, moderate (4-7) Last Admin: 09/16/16 22:34 Dose: 650 mg Albuterol Sulfate (Albuterol 0.083% Inhal Barbie (2.5 Mg/3 Ml) Ud) 2.5 mg INH RQ4 PRN PRN Reason: Shortness of Breath Albuterol/Ipratropium (Duoneb 3 Mg/0.5 Mg (3 Ml) Ud) 3 ml INH RQ4 PRN PRN Reason: Shortness of Breath Apixaban (Eliquis) 5 mg PO BID [facility] PRN Reason: Protocol Last Admin: 10/19/16 08:49 Dose: 5 mg Aspirin (Ecotrin) 81 mg PO DAILY [facility] Last Admin: 10/19/16 08:49 Dose: 81 mg Atorvastatin Calcium (Lipitor) 40 mg PO DAILY [facility] Last Admin: 10/18/16 10:41 Dose: 40 mg Benzonatate (Tessalon Perles) 200 mg PO TID PRN PRN Reason: Cough Last Admin: 10/02/16 14:07 Dose: 200 mg Cinacalcet (Sensipar) 30 mg PO DAILY [facility] Last Admin: 10/19/16 08:55 Dose: 30 mg Diphenhydramine HCl (Benadryl) 25 mg PO Q6 PRN PRN Reason: Itching / Pruritus Epoetin Tha (Procrit) 20,000 unit IV MWF [facility] Last Admin: 10/18/16 14:10 Dose: 20,000 unit Ergocalciferol (Drisdol 50,000 Intl Units Cap) 1 cap PO Q7D [facility] Stop: 11/06/16 11:16 Last Admin: 10/16/16 11:25 Dose: 1 cap Fluconazole (Diflucan) 100 mg PO DAILY [facility] Last Admin: 10/19/16 08:49 Dose: 100 mg Gabapentin (Neurontin) 300 mg PO TID [facility] Last Admin: 10/19/16 08:55 Dose: 300 mg Hydrocortisone (Anusol-Hc) 1 applic [place] BID [facility] Last Admin: 10/18/16 18:14 Dose: 1 applic Hydromorphone HCl (Dilaudid) 1 mg IVP Q3H PRN PRN Reason: Pain, severe (8-10) Last Admin: 10/19/16 06:39 Dose: 1 mg Amikacin Sulfate 250 mg/ (Sodium Chloride) 101 mls @ 100.609 mls/hr IVPB MWF [facility] Last Admin: 10/18/16 10:41 Dose: 100.609 mls/hr Meropenem 500 mg/ Sodium (Chloride) 100 mls @ 100 mls/hr IVPB DAILY@0100 [facility] Last Admin: 10/19/16 00:37 Dose: 100 mls/hr Piperacillin Sod/Tazobactam (Sod 2.25 gm/ Sodium Chloride) 100 mls @ 100 mls/ hr IVPB Q12@0600,1800 [facility] Last Admin: 10/19/16 05:25 Dose: 100 mls/hr Sodium Chloride (Sodium Chloride 0.9%) 1,000 mls @ 10 mls/hr IV .Q24H [facility] Last Admin: 10/16/16 17:37 Dose: 10 mls/hr Linezolid (Zyvox 600mg/300ml D5w) 600 mg in 300 mls @ 300 mls/hr IVPB Q12@0800, 2000 [facility] Last Admin: 10/19/16 08:56 Dose: 300 mls/hr Insulin Detemir (Levemir) 30 units SC HS [facility] Last Admin: 10/18/16 21:42 Dose: 30 units Insulin Human Lispro (Humalog) 8 units SC AC [facility] Last Admin: 10/19/16 08:50 Dose: 8 units Lidocaine (Lidoderm) 1 ea TD DAILY [facility] Last Admin: 10/19/16 08:51 Dose: 1 ea Nystatin (Mycostatin Oint) 1 applic TOP TID [facility] Last Admin: 10/19/16 08:54 Dose: 1 applic Ondansetron HCl (Zofran Inj) 4 mg IVP Q6 PRN PRN Reason: Nausea/Vomiting Last Admin: 09/19/16 10:26 Dose: 4 mg Pantoprazole Sodium (Protonix Ec Tab) 40 mg PO DAILY [facility] Last Admin: 10/19/16 08:55 Dose: 40 mg Phenylephrine HCl (Dagoberto-Synephrine 0.5% Nasal [place]) 1 spry ALLAN Q4 PRN PRN Reason: Nasal congestion Sevelamer HCl (Renagel) 1,600 mg PO TID [facility] Last Admin: 10/19/16 08:55 Dose: 1,600 mg Topiramate (Topamax) 50 mg PO BID [facility] Last Admin: 10/19/16 08:56 Dose: 50 mg Vitamin B Complex/Vit C/Folic Acid (Nephro-Ajay) 1 tab PO DAILY [facility] Last Admin: 10/19/16 08:54 Dose: 1 tab - Labs Labs: 10/19/16 06:00 10/19/16 06:00 PT 17.6 Seconds (9.8-13.1) H 10/15/16 07:00 INR 1.5 (0.9-1.2) H 10/15/16 07:00 APTT 36.6 Seconds (25.6-37.1) 10/15/16 07:00 Attending/Attestation - Attestation I have personally seen and examined this patient.: Yes I have fully participated in the care of the patient.: Yes I have reviewed all pertinent clinical information, including history, physical exam and plan: Yes Notes (Text): 10/19/16 12:06 Patient seen and examined. Overall, she remained hemodynamically stable with stable vital signs at the baseline. There is no increased level of pain at right BKA. VAC dressing was changed at the bedside. There was no tissue necrosis or signs of infection such as erythema, cellulitis or purulence. Continue current care. Continue VAC dressing.
[2016-10-19 08:03] LABS: MEAN CELL VOLUME 92.3 fl (81.0-99.0); MEAN CORPUSCULAR HEMOGLOBIN 29.4 pg (27.0-31.0); MEAN CORPUSCULAR HGB CONC 31.9 g/dL (33.0-37.0); RED CELL DISTRIBUTION WIDTH 18.7 % (11.5-14.5); WHITE BLOOD COUNT 7.8 K/uL (4.8-10.8)
[2016-10-19 08:30] LABS: BILIRUBIN,TOTAL 0.6 mg/dl (0.2-1.3); CALCIUM 9.2 mg/dL (8.4-10.2); POTASSIUM 4.6 MMOL/L (3.6-5.0); TOTAL PROTEIN 8.6 G/DL (6.3-8.2)
[2016-10-19 08:31] LABS: ALB/GLOB RATIO 0.8 (1.0-2.1)
[2016-10-19] MEDS: Insulin Lispro (humaLOG) 100 Units/ml Inj SC SCH ×3 (08:50→17:32)
[2016-10-19] MEDS: Lidocaine 5% Patch TD SCH (08:51)
[2016-10-19] MEDS: Nystatin Ointment TOP SCH ×3 (08:54→17:34)
[2016-10-19] MEDS: Multivitamin Vitamin B Complex (Nephro-Vite) Tab PO SCH (08:54)
[2016-10-19] MEDS: Pantoprazole 40 mg EC Tab PO SCH (08:55)
[2016-10-19] MEDS: Linezolid 600 mg in D5W 300 ml 600 MG/300 ML BAG IVPB SCH (08:56)
--- NOTE | 2016-10-19 10:01 | PN ---
DATE: 10/19/2016 ROOM: 663 SUBJECTIVE: This is a 46-year-old female with recent uncontrolled type 2 insulin-requiring diabetes, now being followed closely for metabolic management. Her glycemic levels are fluctuating, but much improved at this time and the latest chemistries showed a BUN of 27, sodium 141, potassium 4.6, chlor patricia 103, CO2 24, glucose 146, and creatinine 4.0. So, at this time, we will continue the same basal and bolus insulin regimen to allow for full dose equilibration postoperatively following a right belo w-knee amputation as noted. We will keep her on the Levemir given as 30 units subQ at bedtime daily and Humalog given as 8 units subQ t.i.d. before meals as given. We will titrate incrementally as ind icated to optimize metabolic control. We will follow. Irene Ambrose MD cc: [id number] TT: 10/19/2016 10:00:47 Confirmation # [id number] Dictation # [id number]
[2016-10-19] MEDS: Hydrocortisone 2.5% (Rectal) CREAM PR SCH ×2 (12:45→17:31)
--- NOTE | 2016-10-19 14:38 | CP.PCM.PN ---
Subjective - Date & Time of Evaluation Date of Evaluation: 10/19/16 Time of Evaluation: 03:00 - Subjective Subjective: Feels better now Objective - Vital Signs/Intake and Output Vital Signs (last 24 hours): Temp Pulse Resp BP Pulse Ox 98.1 F 109 H 20 136/60 94 L 10/19/16 07:36 10/19/16 07:36 10/19/16 07:36 10/19/16 07:36 10/19/16 07:36 clear - Medications Medications: Current Medications Acetaminophen (Tylenol 325mg Tab) 650 mg PO Q4 PRN PRN Reason: Fever >100.4 F Last Admin: 10/02/16 16:27 Dose: 650 mg Acetaminophen (Tylenol 325mg Tab) 650 mg PO Q4 PRN PRN Reason: Pain, moderate (4-7) Last Admin: 09/16/16 22:34 Dose: 650 mg Albuterol Sulfate (Albuterol 0.083% Inhal Barbie (2.5 Mg/3 Ml) Ud) 2.5 mg INH RQ4 PRN PRN Reason: Shortness of Breath Albuterol/Ipratropium (Duoneb 3 Mg/0.5 Mg (3 Ml) Ud) 3 ml INH RQ4 PRN PRN Reason: Shortness of Breath Apixaban (Eliquis) 5 mg PO BID [facility] PRN Reason: Protocol Last Admin: 10/19/16 08:49 Dose: 5 mg Aspirin (Ecotrin) 81 mg PO DAILY [facility] Last Admin: 10/19/16 08:49 Dose: 81 mg Atorvastatin Calcium (Lipitor) 40 mg PO DAILY [facility] Last Admin: 10/19/16 12:49 Dose: 40 mg Benzonatate (Tessalon Perles) 200 mg PO TID PRN PRN Reason: Cough Last Admin: 10/02/16 14:07 Dose: 200 mg Cinacalcet (Sensipar) 30 mg PO DAILY [facility] Last Admin: 10/19/16 08:55 Dose: 30 mg Diphenhydramine HCl (Benadryl) 25 mg PO Q6 PRN PRN Reason: Itching / Pruritus Epoetin Tha (Procrit) 20,000 unit IV MWF [facility] Last Admin: 10/18/16 14:10 Dose: 20,000 unit Ergocalciferol (Drisdol 50,000 Intl Units Cap) 1 cap PO Q7D [facility] Stop: 11/06/16 11:16 Last Admin: 10/16/16 11:25 Dose: 1 cap Fluconazole (Diflucan) 100 mg PO DAILY [facility] Last Admin: 10/19/16 08:49 Dose: 100 mg Gabapentin (Neurontin) 300 mg PO TID [facility] Last Admin: 10/19/16 12:49 Dose: 300 mg Hydrocortisone (Anusol-Hc) 1 applic [place] BID [facility] Last Admin: 10/19/16 12:45 Dose: 1 applic Hydromorphone HCl (Dilaudid) 1 mg IVP Q3H PRN PRN Reason: Pain, severe (8-10) Last Admin: 10/19/16 11:25 Dose: 1 mg Amikacin Sulfate 250 mg/ (Sodium Chloride) 101 mls @ 100.609 mls/hr IVPB MWF [facility] Last Admin: 10/18/16 10:41 Dose: 100.609 mls/hr Meropenem 500 mg/ Sodium (Chloride) 100 mls @ 100 mls/hr IVPB DAILY@0100 [facility] Last Admin: 10/19/16 00:37 Dose: 100 mls/hr Piperacillin Sod/Tazobactam (Sod 2.25 gm/ Sodium Chloride) 100 mls @ 100 mls/ hr IVPB Q12@0600,1800 [facility] Last Admin: 10/19/16 05:25 Dose: 100 mls/hr Sodium Chloride (Sodium Chloride 0.9%) 1,000 mls @ 10 mls/hr IV .Q24H [facility] Last Admin: 10/16/16 17:37 Dose: 10 mls/hr Linezolid (Zyvox 600mg/300ml D5w) 600 mg in 300 mls @ 300 mls/hr IVPB Q12@0800, 2000 [facility] Last Admin: 10/19/16 08:56 Dose: 300 mls/hr Insulin Detemir (Levemir) 30 units SC HS [facility] Last Admin: 10/18/16 21:42 Dose: 30 units Insulin Human Lispro (Humalog) 8 units SC AC [facility] Last Admin: 10/19/16 12:47 Dose: 8 units Lidocaine (Lidoderm) 1 ea TD DAILY [facility] Last Admin: 10/19/16 08:51 Dose: 1 ea Nystatin (Mycostatin Oint) 1 applic TOP TID [facility] Last Admin: 10/19/16 12:49 Dose: 1 applic Ondansetron HCl (Zofran Inj) 4 mg IVP Q6 PRN PRN Reason: Nausea/Vomiting Last Admin: 09/19/16 10:26 Dose: 4 mg Pantoprazole Sodium (Protonix Ec Tab) 40 mg PO DAILY [facility] Last Admin: 10/19/16 08:55 Dose: 40 mg Phenylephrine HCl (Dagoberto-Synephrine 0.5% Nasal [place]) 1 spry ALLAN Q4 PRN PRN Reason: Nasal congestion Sevelamer HCl (Renagel) 1,600 mg PO TID [facility] Last Admin: 10/19/16 12:49 Dose: 1,600 mg Topiramate (Topamax) 50 mg PO BID [facility] Last Admin: 10/19/16 08:56 Dose: 50 mg Vitamin B Complex/Vit C/Folic Acid (Nephro-Ajay) 1 tab PO DAILY [facility] Last Admin: 10/19/16 08:54 Dose: 1 tab - Labs Labs: 10/19/16 06:00 10/19/16 06:00 PT 17.6 Seconds (9.8-13.1) H 10/15/16 07:00 INR 1.5 (0.9-1.2) H 10/15/16 07:00 APTT 36.6 Seconds (25.6-37.1) 10/15/16 07:00 - Cardiovascular Exam Cardiovascular Exam: REGULAR RHYTHM - Extremities Exam Additional comments: B/L BKA Rt stump with wound vac Assessment and Plan - Assessment and Plan (Free Text) Assessment: ESRD on HD IDDM S/P Rt BKA Plan: Stable on dialysis Continue HD per schedule
--- NOTE | 2016-10-19 16:23 | CP.PCM.PN ---
Subjective - Date & Time of Evaluation Date of Evaluation: 10/19/16 Time of Evaluation: 16:17 - Subjective Subjective: Patient was up out of bed for many hours today. She is doing better in g[place] , and bleeding from right leg wound is not all that terrible since it indicates good circulation. She has developed a patellar pressure sore from the knee immobilizer, so this has been discontinued. Surgical team to re-evaluate wound , but continues on NPWT. BUT,...... CULTURE OF WOUND DONE IN OR AT TIME OF DEBRIDEMENT IS GROWING STAPHYLOCOCCUS AUREUS, COAGULASE NEGATIVE. SENSITIVITY PENDING. So, will continue same iv and po antibiotics. Dr. Lemon has been alerted and will follow-up and make any necessary antibiotic changes. Satisfactory blood work with fairly stable Hgb and wbc. Glucose fairly well controlled. Fluid overload - partly due to iv fluid requirements of Zyvox. Diet has been changed back to 2gm Na 2gm K 80 g protein, and 1200 cc fluid restriction as of yesterday. Objective - Vital Signs/Intake and Output Vital Signs (last 24 hours): Temp Pulse Resp BP Pulse Ox 98.6 F 113 H 20 126/61 96 10/19/16 15:59 10/19/16 15:59 10/19/16 15:59 10/19/16 15:59 10/19/16 15:59 - Medications Medications: Current Medications Acetaminophen (Tylenol 325mg Tab) 650 mg PO Q4 PRN PRN Reason: Fever >100.4 F Last Admin: 10/02/16 16:27 Dose: 650 mg Acetaminophen (Tylenol 325mg Tab) 650 mg PO Q4 PRN PRN Reason: Pain, moderate (4-7) Last Admin: 09/16/16 22:34 Dose: 650 mg Albuterol Sulfate (Albuterol 0.083% Inhal Barbie (2.5 Mg/3 Ml) Ud) 2.5 mg INH RQ4 PRN PRN Reason: Shortness of Breath Albuterol/Ipratropium (Duoneb 3 Mg/0.5 Mg (3 Ml) Ud) 3 ml INH RQ4 PRN PRN Reason: Shortness of Breath Apixaban (Eliquis) 5 mg PO BID [facility] PRN Reason: Protocol Last Admin: 10/19/16 08:49 Dose: 5 mg Aspirin (Ecotrin) 81 mg PO DAILY [facility] Last Admin: 10/19/16 08:49 Dose: 81 mg Atorvastatin Calcium (Lipitor) 40 mg PO DAILY [facility] Last Admin: 10/19/16 12:49 Dose: 40 mg Benzonatate (Tessalon Perles) 200 mg PO TID PRN PRN Reason: Cough Last Admin: 10/02/16 14:07 Dose: 200 mg Cinacalcet (Sensipar) 30 mg PO DAILY [facility] Last Admin: 10/19/16 08:55 Dose: 30 mg Diphenhydramine HCl (Benadryl) 25 mg PO Q6 PRN PRN Reason: Itching / Pruritus Epoetin Tha (Procrit) 20,000 unit IV [facility] Last Admin: 10/18/16 14:10 Dose: 20,000 unit Ergocalciferol (Drisdol 50,000 Intl Units Cap) 1 cap PO Q7D [facility] Stop: 11/06/16 11:16 Last Admin: 10/16/16 11:25 Dose: 1 cap Fluconazole (Diflucan) 100 mg PO DAILY [facility] Last Admin: 10/19/16 08:49 Dose: 100 mg Gabapentin (Neurontin) 300 mg PO TID [facility] Last Admin: 10/19/16 12:49 Dose: 300 mg Hydrocortisone (Anusol-Hc) 1 applic [place] BID [facility] Last Admin: 10/19/16 12:45 Dose: 1 applic Hydromorphone HCl (Dilaudid) 1 mg IVP Q3H PRN PRN Reason: Pain, severe (8-10) Last Admin: 10/19/16 11:25 Dose: 1 mg Amikacin Sulfate 250 mg/ (Sodium Chloride) 101 mls @ 100.609 mls/hr IVPB MWF [facility] Last Admin: 10/18/16 10:41 Dose: 100.609 mls/hr Meropenem 500 mg/ Sodium (Chloride) 100 mls @ 100 mls/hr IVPB DAILY@0100 [facility] Last Admin: 10/19/16 00:37 Dose: 100 mls/hr Piperacillin Sod/Tazobactam (Sod 2.25 gm/ Sodium Chloride) 100 mls @ 100 mls/ hr IVPB Q12@0600,1800 [facility] Last Admin: 10/19/16 05:25 Dose: 100 mls/hr Sodium Chloride (Sodium Chloride 0.9%) 1,000 mls @ 10 mls/hr IV .Q24H [facility] Last Admin: 10/16/16 17:37 Dose: 10 mls/hr Linezolid (Zyvox 600mg/300ml D5w) 600 mg in 300 mls @ 300 mls/hr IVPB Q12@0800, 2000 [facility] Last Admin: 10/19/16 08:56 Dose: 300 mls/hr Insulin Detemir (Levemir) 30 units SC HS [facility] Last Admin: 10/18/16 21:42 Dose: 30 units Insulin Human Lispro (Humalog) 8 units SC AC [facility] Last Admin: 10/19/16 12:47 Dose: 8 units Lidocaine (Lidoderm) 1 ea TD DAILY [facility] Last Admin: 10/19/16 08:51 Dose: 1 ea Nystatin (Mycostatin Oint) 1 applic TOP TID [facility] Last Admin: 10/19/16 12:49 Dose: 1 applic Ondansetron HCl (Zofran Inj) 4 mg IVP Q6 PRN PRN Reason: Nausea/Vomiting Last Admin: 09/19/16 10:26 Dose: 4 mg Pantoprazole Sodium (Protonix Ec Tab) 40 mg PO DAILY [facility] Last Admin: 10/19/16 08:55 Dose: 40 mg Phenylephrine HCl (Dagoberto-Synephrine 0.5% Nasal [place]) 1 spry ALLAN Q4 PRN PRN Reason: Nasal congestion Sevelamer HCl (Renagel) 1,600 mg PO TID [facility] Last Admin: 10/19/16 12:49 Dose: 1,600 mg Topiramate (Topamax) 50 mg PO BID [facility] Last Admin: 10/19/16 08:56 Dose: 50 mg Vitamin B Complex/Vit C/Folic Acid (Nephro-Ajay) 1 tab PO DAILY [facility] Last Admin: 10/19/16 08:54 Dose: 1 tab - Labs Labs: 10/19/16 06:00 10/19/16 06:00 PT 17.6 Seconds (9.8-13.1) H 10/15/16 07:00 INR 1.5 (0.9-1.2) H 10/15/16 07:00 APTT 36.6 Seconds (25.6-37.1) 10/15/16 07:00 Microbiology 10/15/16 14:00 Other: Please Indicate Gram Stain - Final 10/15/16 14:00 Other: Please Indicate Wound Culture - Preliminary Coagulase Neg Staphylococcus - Constitutional Appears: No Acute Distress - Head Exam Head Exam: NORMAL INSPECTION - Eye Exam Eye Exam: Normal appearance - ENT Exam ENT Exam: Mucous Membranes Moist - Neck Exam Neck Exam: Normal Inspection - Respiratory Exam Respiratory Exam: Clear to Ausculation Bilateral, NORMAL BREATHING PATTERN - Cardiovascular Exam Cardiovascular Exam: REGULAR RHYTHM, +S1, +S2 - GI/Abdominal Exam GI & Abdominal Exam: Soft - Back Exam Back Exam: NORMAL INSPECTION - Neurological Exam Neurological Exam: Alert, Awake, CN II-XII Intact, Oriented x3 - Psychiatric Exam Psychiatric exam: Anxious - Skin Skin Exam: Dry, Normal Color, Warm Assessment and Plan (1) Status post below knee amputation of right lower extremity Assessment & Plan: Positive culture is a concern. Will ask Dr. Lemon to look into this. SEE SUBJECTIVE. Status: Acute (2) Osteomyelitis of ankle or foot Status: Acute (3) ESRD (end stage renal disease) on dialysis Status: Chronic (4) DM type 2 (diabetes mellitus, type 2) Status: Chronic (5) Coagulopathy Status: Chronic (6) Anemia, blood loss Status: Acute (7) Peripheral arterial occlusive disease Status: Chronic
[2016-10-19] MEDS: Sodium Chloride 0.9% 1,000 ML IV SCH (17:36)
--- NOTE | 2016-10-19 18:04 | CP.PCM.PN ---
Subjective - Date & Time of Evaluation Date of Evaluation: 10/19/16 Time of Evaluation: 18:02 - Subjective Subjective: I D NOTE WOUND CULTURE :STUMP HASA LIGHT GROWTH OF COAGULASE NEGATIVE STAPH DESPITE THIS WILL CHANGE ZYVOX TO ORAL SHOULD HAVE GOOD BLOOD LEVELS OF ZYVOX C POs MAINTAIN THE REST OF THE ANTIBIOTIC COVERAGE Objective - Vital Signs/Intake and Output Vital Signs (last 24 hours): Temp Pulse Resp BP Pulse Ox 98.6 F 113 H 20 126/61 96 10/19/16 15:59 10/19/16 15:59 10/19/16 15:59 10/19/16 15:59 10/19/16 15:59 - Medications Medications: Current Medications Acetaminophen (Tylenol 325mg Tab) 650 mg PO Q4 PRN PRN Reason: Fever >100.4 F Last Admin: 10/02/16 16:27 Dose: 650 mg Acetaminophen (Tylenol 325mg Tab) 650 mg PO Q4 PRN PRN Reason: Pain, moderate (4-7) Last Admin: 09/16/16 22:34 Dose: 650 mg Albuterol Sulfate (Albuterol 0.083% Inhal Barbie (2.5 Mg/3 Ml) Ud) 2.5 mg INH RQ4 PRN PRN Reason: Shortness of Breath Albuterol/Ipratropium (Duoneb 3 Mg/0.5 Mg (3 Ml) Ud) 3 ml INH RQ4 PRN PRN Reason: Shortness of Breath Apixaban (Eliquis) 5 mg PO BID [facility] PRN Reason: Protocol Last Admin: 10/19/16 17:32 Dose: 5 mg Aspirin (Ecotrin) 81 mg PO DAILY [facility] Last Admin: 10/19/16 08:49 Dose: 81 mg Atorvastatin Calcium (Lipitor) 40 mg PO DAILY [facility] Last Admin: 10/19/16 12:49 Dose: 40 mg Benzonatate (Tessalon Perles) 200 mg PO TID PRN PRN Reason: Cough Last Admin: 10/02/16 14:07 Dose: 200 mg Cinacalcet (Sensipar) 30 mg PO DAILY [facility] Last Admin: 10/19/16 08:55 Dose: 30 mg Diphenhydramine HCl (Benadryl) 25 mg PO Q6 PRN PRN Reason: Itching / Pruritus Epoetin Tha (Procrit) 20,000 unit IV MWF [facility] Last Admin: 10/18/16 14:10 Dose: 20,000 unit Ergocalciferol (Drisdol 50,000 Intl Units Cap) 1 cap PO Q7D [facility] Stop: 11/06/16 11:16 Last Admin: 10/16/16 11:25 Dose: 1 cap Fluconazole (Diflucan) 100 mg PO DAILY [facility] Last Admin: 10/19/16 08:49 Dose: 100 mg Gabapentin (Neurontin) 300 mg PO TID [facility] Last Admin: 10/19/16 17:34 Dose: 300 mg Hydrocortisone (Anusol-Hc) 1 applic [place] BID [facility] Last Admin: 10/19/16 17:31 Dose: 1 applic Hydromorphone HCl (Dilaudid) 1 mg IVP Q3H PRN PRN Reason: Pain, severe (8-10) Last Admin: 10/19/16 11:25 Dose: 1 mg Amikacin Sulfate 250 mg/ (Sodium Chloride) 101 mls @ 100.609 mls/hr [facility] Last Admin: 10/18/16 10:41 Dose: 100.609 mls/hr Meropenem 500 mg/ Sodium (Chloride) 100 mls @ 100 mls/hr IVPB DAILY@0100 [facility] Last Admin: 10/19/16 00:37 Dose: 100 mls/hr Piperacillin Sod/Tazobactam (Sod 2.25 gm/ Sodium Chloride) 100 mls @ 100 mls/ hr IVPB Q12@0600,1800 [facility] Last Admin: 10/19/16 17:36 Dose: 100 mls/hr Sodium Chloride (Sodium Chloride 0.9%) 1,000 mls @ 10 mls/hr IV .Q24H [facility] Last Admin: 10/19/16 17:36 Dose: 10 mls/hr Insulin Detemir (Levemir) 30 units SC HS [facility] Last Admin: 10/18/16 21:42 Dose: 30 units Insulin Human Lispro (Humalog) 8 units SC AC [facility] Last Admin: 10/19/16 17:32 Dose: 8 units Lidocaine (Lidoderm) 1 ea TD DAILY [facility] Last Admin: 10/19/16 08:51 Dose: 1 ea Linezolid (Zyvox) 600 mg PO Q12 [facility] Nystatin (Mycostatin Oint) 1 applic TOP TID [facility] Last Admin: 10/19/16 17:34 Dose: 1 applic Ondansetron HCl (Zofran Inj) 4 mg IVP Q6 PRN PRN Reason: Nausea/Vomiting Last Admin: 09/19/16 10:26 Dose: 4 mg Pantoprazole Sodium (Protonix Ec Tab) 40 mg PO DAILY [facility] Last Admin: 10/19/16 08:55 Dose: 40 mg Phenylephrine HCl (Dagoberto-Synephrine 0.5% Nasal [place]) 1 spry ALLAN Q4 PRN PRN Reason: Nasal congestion Sevelamer HCl (Renagel) 1,600 mg PO TID [facility] Last Admin: 10/19/16 17:34 Dose: 1,600 mg Topiramate (Topamax) 50 mg PO BID [facility] Last Admin: 10/19/16 17:36 Dose: 50 mg Vitamin B Complex/Vit C/Folic Acid (Nephro-Ajay) 1 tab PO DAILY [facility] Last Admin: 10/19/16 08:54 Dose: 1 tab - Labs Labs: 10/19/16 06:00 10/19/16 06:00 PT 17.6 Seconds (9.8-13.1) H 10/15/16 07:00 INR 1.5 (0.9-1.2) H 10/15/16 07:00 APTT 36.6 Seconds (25.6-37.1) 10/15/16 07:00
[2016-10-19] MEDS: Insulin Detemir 100 Units/ml Inj SC SCH (21:16)
[2016-10-20] MEDS: Meropenem 500 MG in Sodium Chloride 0.9% 100 ML IVPB SCH (00:10)
[2016-10-20] MEDS: Multivitamin Vitamin B Complex (Nephro-Vite) Tab PO SCH (08:12)
[2016-10-20] MEDS: Pantoprazole 40 mg EC Tab PO SCH (08:13)
[2016-10-20] MEDS: Lidocaine 5% Patch TD SCH (08:15)
[2016-10-20] MEDS: Nystatin Ointment TOP SCH ×3 (08:22→18:57)
[2016-10-20] MEDS: Insulin Lispro (humaLOG) 100 Units/ml Inj SC SCH ×3 (08:23→17:12)
[2016-10-20] MEDS: Hydrocortisone 2.5% (Rectal) CREAM PR SCH ×2 (08:27→17:24)
--- NOTE | 2016-10-20 08:35 | CP.PCM.PN ---
Subjective - Date & Time of Evaluation Date of Evaluation: 10/20/16 Time of Evaluation: 07:10 - Subjective Subjective: SURGERY CONSULT NOTE FOR DR. MORATAYA 46F seen and examined at bedside. Patient resting comfortably. denies pain. Objective - Vital Signs/Intake and Output Vital Signs (last 24 hours): Temp Pulse Resp BP Pulse Ox 98.3 F 116 H 18 121/65 97 10/20/16 07:17 10/20/16 07:17 10/20/16 07:17 10/20/16 07:17 10/20/16 07:17 - Medications Medications: Current Medications Acetaminophen (Tylenol 325mg Tab) 650 mg PO Q4 PRN PRN Reason: Fever >100.4 F Last Admin: 10/02/16 16:27 Dose: 650 mg Acetaminophen (Tylenol 325mg Tab) 650 mg PO Q4 PRN PRN Reason: Pain, moderate (4-7) Last Admin: 09/16/16 22:34 Dose: 650 mg Albuterol Sulfate (Albuterol 0.083% Inhal Barbie (2.5 Mg/3 Ml) Ud) 2.5 mg INH RQ4 PRN PRN Reason: Shortness of Breath Albuterol/Ipratropium (Duoneb 3 Mg/0.5 Mg (3 Ml) Ud) 3 ml INH RQ4 PRN PRN Reason: Shortness of Breath Apixaban (Eliquis) 5 mg PO BID [facility] PRN Reason: Protocol Last Admin: 10/20/16 08:18 Dose: 5 mg Aspirin (Ecotrin) 81 mg PO DAILY [facility] Last Admin: 10/20/16 08:28 Dose: 81 mg Atorvastatin Calcium (Lipitor) 40 mg PO DAILY [facility] Last Admin: 10/20/16 08:11 Dose: 40 mg Benzonatate (Tessalon Perles) 200 mg PO TID PRN PRN Reason: Cough Last Admin: 10/02/16 14:07 Dose: 200 mg Cinacalcet (Sensipar) 30 mg PO DAILY [facility] Last Admin: 10/20/16 08:11 Dose: 30 mg Diphenhydramine HCl (Benadryl) 25 mg PO Q6 PRN PRN Reason: Itching / Pruritus Epoetin Tha (Procrit) 20,000 unit IV MWF [facility] Last Admin: 10/18/16 14:10 Dose: 20,000 unit Ergocalciferol (Drisdol 50,000 Intl Units Cap) 1 cap PO Q7D [facility] Stop: 11/06/16 11:16 Last Admin: 10/16/16 11:25 Dose: 1 cap Fluconazole (Diflucan) 100 mg PO DAILY [facility] Last Admin: 10/20/16 08:10 Dose: 100 mg Gabapentin (Neurontin) 300 mg PO TID [facility] Last Admin: 10/20/16 08:10 Dose: 300 mg Hydrocortisone (Anusol-Hc) 1 applic [place] BID [facility] Last Admin: 10/20/16 08:27 Dose: Not Given Hydromorphone HCl (Dilaudid) 1 mg IVP Q3H PRN PRN Reason: Pain, severe (8-10) Last Admin: 10/20/16 07:46 Dose: 1 mg Amikacin Sulfate 250 mg/ (Sodium Chloride) 101 mls @ 100.609 mls/hr IVPB MWF [facility] Last Admin: 10/18/16 10:41 Dose: 100.609 mls/hr Meropenem 500 mg/ Sodium (Chloride) 100 mls @ 100 mls/hr IVPB DAILY@0100 [facility] Last Admin: 10/20/16 00:10 Dose: 100 mls/hr Piperacillin Sod/Tazobactam (Sod 2.25 gm/ Sodium Chloride) 100 mls @ 100 mls/ hr IVPB Q12@0600,1800 [facility] Last Admin: 10/20/16 05:37 Dose: 100 mls/hr Sodium Chloride (Sodium Chloride 0.9%) 1,000 mls @ 10 mls/hr IV .Q24H [facility] Last Admin: 10/19/16 17:36 Dose: 10 mls/hr Insulin Detemir (Levemir) 30 units SC HS [facility] Last Admin: 10/19/16 21:16 Dose: 30 units Insulin Human Lispro (Humalog) 8 units SC AC [facility] Last Admin: 10/20/16 08:23 Dose: 8 units Lidocaine (Lidoderm) 1 ea TD DAILY [facility] Last Admin: 10/20/16 08:15 Dose: 1 ea Linezolid (Zyvox) 600 mg PO Q12 [facility] Last Admin: 10/20/16 08:11 Dose: 600 mg Nystatin (Mycostatin Oint) 1 applic TOP TID [facility] Last Admin: 10/20/16 08:22 Dose: Not Given Ondansetron HCl (Zofran Inj) 4 mg IVP Q6 PRN PRN Reason: Nausea/Vomiting Last Admin: 09/19/16 10:26 Dose: 4 mg Pantoprazole Sodium (Protonix Ec Tab) 40 mg PO DAILY [facility] Last Admin: 10/20/16 08:13 Dose: 40 mg Phenylephrine HCl (Dagoberto-Synephrine 0.5% Nasal [place]) 1 spry ALLAN Q4 PRN PRN Reason: Nasal congestion Sevelamer HCl (Renagel) 1,600 mg PO TID [facility] Last Admin: 10/20/16 08:11 Dose: 1,600 mg Topiramate (Topamax) 50 mg PO BID [facility] Last Admin: 10/20/16 08:13 Dose: 50 mg Vitamin B Complex/Vit C/Folic Acid (Nephro-Ajay) 1 tab PO DAILY [facility] Last Admin: 10/20/16 08:12 Dose: 1 tab - Labs Labs: 10/19/16 06:00 10/19/16 06:00 PT 17.6 Seconds (9.8-13.1) H 10/15/16 07:00 INR 1.5 (0.9-1.2) H 10/15/16 07:00 APTT 36.6 Seconds (25.6-37.1) 10/15/16 07:00 - Constitutional Appears: Non-toxic, No Acute Distress - Respiratory Exam Respiratory Exam: Clear to Ausculation Bilateral, NORMAL BREATHING PATTERN - Cardiovascular Exam Cardiovascular Exam: REGULAR RHYTHM, +S1, +S2 - Extremities Exam Additional comments: b/l BKA, curlex on right BKA - saturation size 10cm*10cm serosangouinous, wound vac in place. - Neurological Exam Neurological Exam: Alert, Awake - Skin Skin Exam: Dry, Intact, Normal Color, Warm Assessment and Plan - Assessment and Plan (Free Text) Assessment: 46F s/p right BKA POD19, and right stump wound debridement POD5 - continue wound care - wound vac care - re-enforce dressing with more curlex if saturated continues Further recs discuss with Dr. Easton Jordan, PGY1
--- NOTE | 2016-10-20 12:12 | CP.PCM.PN ---
Subjective - Date & Time of Evaluation Date of Evaluation: 10/20/16 Time of Evaluation: 12:04 - Subjective Subjective: Patient is sitting up comfortably in recliner. No fevers, cough, dyspnea or chest pain. Right leg only mildly uncomfortable at rest. Wound vac in place. There is about 10 x 10 cm of serosanguinous seapage from dressing on R residual limb. This does not seem to be progressing. It is possible that the wound vac could be causing this seepage and that the suction may have to be decreased. Also, the wound vac dressing cannot be appropriately adherent or there would not be seepage onto the Kerlex but rather the drainage should go into the wound vac container..... 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 Tough choices.... Wound culture from 10/15/16 debridement is postive for staph aureus, coagulase negative. I note that Dr. Lemon changed the Zyvox to the oral form. This will help decrease her fluid intake by 600 cc/day. Other IV antibiotics continue along with po fluconazole. Lesions beneath breasts have healed. Will ask wound care specialists if Nystatin powder would now be appropriate instead of the cream. Otherwise patient is OK. Will check CBC and BMP at time of hemodialysis tomorrow. Objective - Vital Signs/Intake and Output Vital Signs (last 24 hours): Temp Pulse Resp BP Pulse Ox 98.3 F 116 H 18 121/65 97 10/20/16 07:17 10/20/16 07:17 10/20/16 07:17 10/20/16 07:17 10/20/16 07:17 - Medications Medications: Current Medications Acetaminophen (Tylenol 325mg Tab) 650 mg PO Q4 PRN PRN Reason: Fever >100.4 F Last Admin: 10/02/16 16:27 Dose: 650 mg Acetaminophen (Tylenol 325mg Tab) 650 mg PO Q4 PRN PRN Reason: Pain, moderate (4-7) Last Admin: 09/16/16 22:34 Dose: 650 mg Albuterol Sulfate (Albuterol 0.083% Inhal Barbie (2.5 Mg/3 Ml) Ud) 2.5 mg INH RQ4 PRN PRN Reason: Shortness of Breath Albuterol/Ipratropium (Duoneb 3 Mg/0.5 Mg (3 Ml) Ud) 3 ml INH RQ4 PRN PRN Reason: Shortness of Breath Apixaban (Eliquis) 5 mg PO BID [facility] PRN Reason: Protocol Last Admin: 10/20/16 08:18 Dose: 5 mg Aspirin (Ecotrin) 81 mg PO DAILY [facility] Last Admin: 10/20/16 08:28 Dose: 81 mg Atorvastatin Calcium (Lipitor) 40 mg PO DAILY [facility] Last Admin: 10/20/16 08:11 Dose: 40 mg Benzonatate (Tessalon Perles) 200 mg PO TID PRN PRN Reason: Cough Last Admin: 10/02/16 14:07 Dose: 200 mg Cinacalcet (Sensipar) 30 mg PO DAILY [facility] Last Admin: 10/20/16 08:11 Dose: 30 mg Diphenhydramine HCl (Benadryl) 25 mg PO Q6 PRN PRN Reason: Itching / Pruritus Epoetin Tha (Procrit) 20,000 unit IV [facility] Last Admin: 10/18/16 14:10 Dose: 20,000 unit Ergocalciferol (Drisdol 50,000 Intl Units Cap) 1 cap PO Q7D [facility] Stop: 11/06/16 11:16 Last Admin: 10/16/16 11:25 Dose: 1 cap Fluconazole (Diflucan) 100 mg PO DAILY [facility] Last Admin: 10/20/16 08:10 Dose: 100 mg Gabapentin (Neurontin) 300 mg PO TID [facility] Last Admin: 10/20/16 08:10 Dose: 300 mg Hydrocortisone (Anusol-Hc) 1 applic [place] BID [facility] Last Admin: 10/20/16 08:27 Dose: Not Given Hydromorphone HCl (Dilaudid) 1 mg IVP Q3H PRN PRN Reason: Pain, severe (8-10) Last Admin: 10/20/16 07:46 Dose: 1 mg Amikacin Sulfate 250 mg/ (Sodium Chloride) 101 mls @ 100.609 mls/hr IVPB MWF [facility] Last Admin: 10/18/16 10:41 Dose: 100.609 mls/hr Meropenem 500 mg/ Sodium (Chloride) 100 mls @ 100 mls/hr IVPB DAILY@0100 [facility] Last Admin: 10/20/16 00:10 Dose: 100 mls/hr Piperacillin Sod/Tazobactam (Sod 2.25 gm/ Sodium Chloride) 100 mls @ 100 mls/ hr IVPB Q12@0600,1800 [facility] Last Admin: 10/20/16 05:37 Dose: 100 mls/hr Sodium Chloride (Sodium Chloride 0.9%) 1,000 mls @ 10 mls/hr IV .Q24H [facility] Last Admin: 10/19/16 17:36 Dose: 10 mls/hr Insulin Detemir (Levemir) 30 units SC HS [facility] Last Admin: 10/19/16 21:16 Dose: 30 units Insulin Human Lispro (Humalog) 8 units SC AC [facility] Last Admin: 10/20/16 08:23 Dose: 8 units Lidocaine (Lidoderm) 1 ea TD DAILY [facility] Last Admin: 10/20/16 08:15 Dose: 1 ea Linezolid (Zyvox) 600 mg PO Q12 [facility] Last Admin: 10/20/16 08:11 Dose: 600 mg Nystatin (Mycostatin Oint) 1 applic TOP TID [facility] Last Admin: 10/20/16 08:22 Dose: Not Given Ondansetron HCl (Zofran Inj) 4 mg IVP Q6 PRN PRN Reason: Nausea/Vomiting Last Admin: 09/19/16 10:26 Dose: 4 mg Pantoprazole Sodium (Protonix Ec Tab) 40 mg PO DAILY [facility] Last Admin: 10/20/16 08:13 Dose: 40 mg Phenylephrine HCl (Dagoberto-Synephrine 0.5% Nasal [place]) 1 spry ALLAN Q4 PRN PRN Reason: Nasal congestion Sevelamer HCl (Renagel) 1,600 mg PO TID [facility] Last Admin: 10/20/16 08:11 Dose: 1,600 mg Topiramate (Topamax) 50 mg PO BID [facility] Last Admin: 10/20/16 08:13 Dose: 50 mg Vitamin B Complex/Vit C/Folic Acid (Nephro-Ajay) 1 tab PO DAILY [facility] Last Admin: 10/20/16 08:12 Dose: 1 tab - Labs Labs: 10/19/16 06:00 10/19/16 06:00 PT 17.6 Seconds (9.8-13.1) H 10/15/16 07:00 INR 1.5 (0.9-1.2) H 10/15/16 07:00 APTT 36.6 Seconds (25.6-37.1) 10/15/16 07:00 - Constitutional Appears: No Acute Distress - Head Exam Head Exam: NORMAL INSPECTION - ENT Exam ENT Exam: Mucous Membranes Moist - Neck Exam Neck Exam: Normal Inspection - Respiratory Exam Respiratory Exam: Clear to Ausculation Bilateral, NORMAL BREATHING PATTERN - Cardiovascular Exam Cardiovascular Exam: REGULAR RHYTHM, +S1, +S2 - GI/Abdominal Exam GI & Abdominal Exam: Soft - Extremities Exam Additional comments: Dressing/wound vac in place right residual BK wound. There is about 10 x 10 cm of serosanguinous seepage from dressing on R residual limb. This does not seem to be progressing over the past few hours. There is only about 10 cc of drainage in the wound vac chamber. PICC line intact L femoral vein. Otherwise no changes. - Back Exam Back Exam: NORMAL INSPECTION - Neurological Exam Neurological Exam: Alert, CN II-XII Intact, Oriented x3 - Psychiatric Exam Psychiatric exam: Anxious - Skin Skin Exam: Dry, Warm Assessment and Plan (1) Status post below knee amputation of right lower extremity Assessment & Plan: SEE SUBJECTIVE Status: Acute (2) Osteomyelitis of ankle or foot Assessment & Plan: Hopefully resolved by amputation - but danger always lurks... Status: Acute (3) ESRD (end stage renal disease) on dialysis Status: Chronic (4) DM type 2 (diabetes mellitus, type 2) Status: Chronic (5) Coagulopathy Assessment & Plan: SEE SUBJECTIVE. Status: Chronic (6) Anemia, blood loss Assessment & Plan: Will check CBC and BMP and amikacin levels in am. Status: Acute (7) Peripheral arterial occlusive disease Status: Chronic
--- NOTE | 2016-10-20 16:13 | PN ---
DATE: 10/20/2016 ROOM: 663 This is a 46-year-old female with recent uncontrolled type 2 insulin-requiring diabetes, now being fo llowed closely for metabolic management. She has improved clinically and metabolically postoperative ly following a recent right below knee amputation procedure as undertaken. She had severe underlying right heel osteomyelitis with severe peripheral arterial vasculopathy as noted thereof. Her latest chemistry showed a BUN of 27, sodium 141, potassium 4.6, chloride 103, CO2 24, glucose 146 and creatinine 4.0. So at this time, we will continue the same basal and bolus insulin regimen to allow for dose equilibr ation and keep her on the Levemir given as 30 units subQ at bedtime daily as given. We will also con tinue the Humalog given as 8 units subQ t.i.d. before meals as given. We will titrate incrementally as indicated to optimize metabolic control. We will follow. Irene Ambrose MD cc: [phone] TT: 10/20/2016 16:12:18 Confirmation # [id number] Dictation # [id number] en
[2016-10-20] MEDS: Sodium Chloride 0.9% 1,000 ML IV SCH (19:02)
[2016-10-20] MEDS: Insulin Detemir 100 Units/ml Inj SC SCH (21:34)
[2016-10-21] MEDS: Meropenem 500 MG in Sodium Chloride 0.9% 100 ML IVPB SCH (00:39)
[2016-10-21] MEDS: Pantoprazole 40 mg EC Tab PO SCH (08:11)
[2016-10-21] MEDS: Multivitamin Vitamin B Complex (Nephro-Vite) Tab PO SCH (08:12)
[2016-10-21] MEDS: Nystatin Ointment TOP SCH ×2 (08:15→14:23)
--- NOTE | 2016-10-21 08:15 | CP.PCM.PN ---
Subjective - Date & Time of Evaluation Date of Evaluation: 10/21/16 Time of Evaluation: 07:15 - Subjective Subjective: This is a vascular surgery progress note for Dr. Mccormack: 46 y/o female patient 6 days s/p I&D of Right BKA stump (I&D 10/15/16, BKA 2016) was seen at bedside this morning. Moderate sanguinous strikethrough noted from the dressing to right BKA site. Floor nurse changed outer dressing last night due to heavy strikethrough. Patient due for dialysis today. Patient denies of N/V/F/C or SOB today. Wound VAC functioning @ 125 mmHg with collection of 60cc Objective - Vital Signs/Intake and Output Vital Signs (last 24 hours): Temp Pulse Resp BP Pulse Ox 97.9 F 116 H 18 123/92 H 95 10/21/16 07:33 10/21/16 07:33 10/21/16 07:33 10/21/16 07:33 10/21/16 07:33 - Medications Medications: Current Medications Acetaminophen (Tylenol 325mg Tab) 650 mg PO Q4 PRN PRN Reason: Fever >100.4 F Last Admin: 10/02/16 16:27 Dose: 650 mg Acetaminophen (Tylenol 325mg Tab) 650 mg PO Q4 PRN PRN Reason: Pain, moderate (4-7) Last Admin: 09/16/16 22:34 Dose: 650 mg Albuterol Sulfate (Albuterol 0.083% Inhal Barbie (2.5 Mg/3 Ml) Ud) 2.5 mg INH RQ4 PRN PRN Reason: Shortness of Breath Albuterol/Ipratropium (Duoneb 3 Mg/0.5 Mg (3 Ml) Ud) 3 ml INH RQ4 PRN PRN Reason: Shortness of Breath Apixaban (Eliquis) 5 mg PO BID [facility] PRN Reason: Protocol Last Admin: 10/20/16 17:12 Dose: 5 mg Aspirin (Ecotrin) 81 mg PO DAILY [facility] Last Admin: 10/20/16 08:28 Dose: 81 mg Atorvastatin Calcium (Lipitor) 40 mg PO DAILY [facility] Last Admin: 10/20/16 08:11 Dose: 40 mg Benzonatate (Tessalon Perles) 200 mg PO TID PRN PRN Reason: Cough Last Admin: 10/02/16 14:07 Dose: 200 mg Cinacalcet (Sensipar) 30 mg PO DAILY [facility] Last Admin: 10/20/16 08:11 Dose: 30 mg Diphenhydramine HCl (Benadryl) 25 mg PO Q6 PRN PRN Reason: Itching / Pruritus Epoetin Tha (Procrit) 20,000 unit IV [facility] Last Admin: 10/18/16 14:10 Dose: 20,000 unit Ergocalciferol (Drisdol 50,000 Intl Units Cap) 1 cap PO Q7D [facility] Stop: 11/06/16 11:16 Last Admin: 10/16/16 11:25 Dose: 1 cap Fluconazole (Diflucan) 100 mg PO DAILY [facility] Last Admin: 10/20/16 08:10 Dose: 100 mg Gabapentin (Neurontin) 300 mg PO TID [facility] Last Admin: 10/20/16 17:12 Dose: 300 mg Hydrocortisone (Anusol-Hc) 1 applic [place] BID [facility] Last Admin: 10/20/16 17:24 Dose: Not Given Hydromorphone HCl (Dilaudid) 1 mg IVP Q3H PRN PRN Reason: Pain, severe (8-10) Last Admin: 10/21/16 07:52 Dose: 1 mg Amikacin Sulfate 250 mg/ (Sodium Chloride) 101 mls @ 100.609 mls/hr IVPB [facility] Last Admin: 10/18/16 10:41 Dose: 100.609 mls/hr Meropenem 500 mg/ Sodium (Chloride) 100 mls @ 100 mls/hr IVPB DAILY@0100 [facility] Last Admin: 10/21/16 00:39 Dose: 100 mls/hr Piperacillin Sod/Tazobactam (Sod 2.25 gm/ Sodium Chloride) 100 mls @ 100 mls/ hr IVPB Q12@0600,1800 [facility] Last Admin: 10/21/16 05:48 Dose: 100 mls/hr Sodium Chloride (Sodium Chloride 0.9%) 1,000 mls @ 10 mls/hr IV .Q24H [facility] Last Admin: 10/20/16 19:02 Dose: 10 mls/hr Insulin Detemir (Levemir) 30 units SC [facility] Last Admin: 10/20/16 21:34 Dose: 30 units Insulin Human Lispro (Humalog) 8 units SC AC [facility] Last Admin: 10/20/16 17:12 Dose: 8 units Lidocaine (Lidoderm) 1 ea TD DAILY [facility] Last Admin: 10/20/16 08:15 Dose: 1 ea Linezolid (Zyvox) 600 mg PO Q12 [facility] Last Admin: 10/20/16 21:35 Dose: 600 mg Nystatin (Mycostatin Oint) 1 applic TOP TID [facility] Last Admin: 10/20/16 18:57 Dose: Not Given Ondansetron HCl (Zofran Inj) 4 mg IVP Q6 PRN PRN Reason: Nausea/Vomiting Last Admin: 09/19/16 10:26 Dose: 4 mg Pantoprazole Sodium (Protonix Ec Tab) 40 mg PO DAILY [facility] Last Admin: 10/20/16 08:13 Dose: 40 mg Phenylephrine HCl (Dagoberto-Synephrine 0.5% Nasal [place]) 1 spry ALLAN Q4 PRN PRN Reason: Nasal congestion Sevelamer HCl (Renagel) 1,600 mg PO TID [facility] Last Admin: 10/20/16 17:11 Dose: 1,600 mg Topiramate (Topamax) 50 mg PO BID [facility] Last Admin: 10/20/16 17:11 Dose: 50 mg Vitamin B Complex/Vit C/Folic Acid (Nephro-Ajay) 1 tab PO DAILY [facility] Last Admin: 10/20/16 08:12 Dose: 1 tab - Labs Labs: 10/19/16 06:00 10/19/16 06:00 PT 17.6 Seconds (9.8-13.1) H 10/15/16 07:00 INR 1.5 (0.9-1.2) H 10/15/16 07:00 APTT 36.6 Seconds (25.6-37.1) 10/15/16 07:00 - Constitutional Appears: Well, Non-toxic, No Acute Distress - Extremities Exam Additional comments: Dressing to Right knee -moderate sanguinous strikethrough noted. Wound VAC functioning @ 125 mmHg w/ 60cc collection - Neurological Exam Neurological Exam: Alert, Awake, Oriented x3 - Psychiatric Exam Psychiatric exam: Normal Affect, Normal Mood - Skin Skin Exam: Normal Color, Warm Assessment and Plan - Assessment and Plan (Free Text) Assessment: 46F s/p Incision and drainage, wound VAC placement of Right BKA stump POD#6 ( Right BKA 10/01/16) Plan: - Wound VAC intact - Continue pain control prn - WCX: No growth final - knee immobilizer discontinued - Continue PT/OT - s/p Vaginal D&C
[2016-10-21] MEDS: Lidocaine 5% Patch TD SCH (08:16)
[2016-10-21] MEDS: Insulin Lispro (humaLOG) 100 Units/ml Inj SC SCH ×3 (08:17→17:49)
[2016-10-21] MEDS: Hydrocortisone 2.5% (Rectal) CREAM PR SCH ×2 (11:22→18:48)
--- NOTE | 2016-10-21 11:40 | CP.PCM.PN ---
Subjective - Date & Time of Evaluation Date of Evaluation: 10/21/16 Time of Evaluation: 11:36 - Subjective Subjective: No overnight event reported Patient stated that she has a chronic pain and she has been treated Receiving intravenous antibiotics as per primary and infectious disease team. Patient to start dialysis now With ultrafiltration about 3500 mL if tolerated Zovirax has been switched to oral , this will give less less 600 mL of fluid intravenously Continue hemodialysis as scheduled and as tolerating the right now Potassium bath 2 mEq Sodium bath 138 Ultrafiltration about 3500 mL Continue monitoring Objective - Vital Signs/Intake and Output Vital Signs (last 24 hours): Temp Pulse Resp BP Pulse Ox 97.9 F 116 H 18 123/92 H 95 10/21/16 07:33 10/21/16 07:33 10/21/16 07:33 10/21/16 07:33 10/21/16 07:33 - Medications Medications: Current Medications Acetaminophen (Tylenol 325mg Tab) 650 mg PO Q4 PRN PRN Reason: Fever >100.4 F Last Admin: 10/02/16 16:27 Dose: 650 mg Acetaminophen (Tylenol 325mg Tab) 650 mg PO Q4 PRN PRN Reason: Pain, moderate (4-7) Last Admin: 09/16/16 22:34 Dose: 650 mg Albuterol Sulfate (Albuterol 0.083% Inhal Barbie (2.5 Mg/3 Ml) Ud) 2.5 mg INH RQ4 PRN PRN Reason: Shortness of Breath Albuterol/Ipratropium (Duoneb 3 Mg/0.5 Mg (3 Ml) Ud) 3 ml INH RQ4 PRN PRN Reason: Shortness of Breath Apixaban (Eliquis) 5 mg PO BID [facility] PRN Reason: Protocol Last Admin: 10/21/16 08:11 Dose: 5 mg Aspirin (Ecotrin) 81 mg PO DAILY [facility] Last Admin: 10/21/16 08:11 Dose: 81 mg Atorvastatin Calcium (Lipitor) 40 mg PO DAILY [facility] Last Admin: 10/21/16 08:15 Dose: 40 mg Benzonatate (Tessalon Perles) 200 mg PO TID PRN PRN Reason: Cough Last Admin: 10/02/16 14:07 Dose: 200 mg Cinacalcet (Sensipar) 30 mg PO DAILY [facility] Last Admin: 10/21/16 08:11 Dose: 30 mg Diphenhydramine HCl (Benadryl) 25 mg PO Q6 PRN PRN Reason: Itching / Pruritus Epoetin Tha (Procrit) 20,000 unit IV [place] [facility] [place] Last Admin: 10/18/16 14:10 Dose: 20,000 unit Ergocalciferol (Drisdol 50,000 Intl Units Cap) 1 cap PO Q7D [facility] Stop: 11/06/16 11:16 Last Admin: 10/16/16 11:25 Dose: 1 cap Fluconazole (Diflucan) 100 mg PO DAILY [facility] Last Admin: 10/21/16 08:14 Dose: 100 mg Gabapentin (Neurontin) 300 mg PO TID [facility] Last Admin: 10/21/16 08:11 Dose: 300 mg Hydrocortisone (Anusol-Hc) 1 applic AR BID [facility] Last Admin: 10/20/16 17:24 Dose: Not Given Hydromorphone HCl (Dilaudid) 1 mg IVP Q3H PRN PRN Reason: Pain, severe (8-10) Last Admin: 10/21/16 07:52 Dose: 1 mg Amikacin Sulfate 250 mg/ (Sodium Chloride) 101 mls @ 100.609 mls/hr IVPB [place] [facility] [place] Last Admin: 10/21/16 08:21 Dose: 100.609 mls/hr Meropenem 500 mg/ Sodium (Chloride) 100 mls @ 100 mls/hr IVPB DAILY@0100 [facility] Last Admin: 10/21/16 00:39 Dose: 100 mls/hr Piperacillin Sod/Tazobactam (Sod 2.25 gm/ Sodium Chloride) 100 mls @ 100 mls/ hr IVPB Q12@0600,1800 [facility] Last Admin: 10/21/16 05:48 Dose: 100 mls/hr Sodium Chloride (Sodium Chloride 0.9%) 1,000 mls @ 10 mls/hr IV .Q24H [facility] Last Admin: 10/20/16 19:02 Dose: 10 mls/hr Insulin Detemir (Levemir) 30 units SC HS [facility] Last Admin: 10/20/16 21:34 Dose: 30 units Insulin Human Lispro (Humalog) 8 units SC AC [facility] Last Admin: 10/21/16 08:17 Dose: 8 units Lidocaine (Lidoderm) 1 ea TD DAILY [facility] Last Admin: 10/21/16 08:16 Dose: 1 ea Linezolid (Zyvox) 600 mg PO Q12 [facility] Last Admin: 10/21/16 08:11 Dose: 600 mg Nystatin (Mycostatin Oint) 1 applic TOP TID [facility] Last Admin: 10/21/16 08:15 Dose: Not Given Ondansetron HCl (Zofran Inj) 4 mg IVP Q6 PRN PRN Reason: Nausea/Vomiting Last Admin: 09/19/16 10:26 Dose: 4 mg Pantoprazole Sodium (Protonix Ec Tab) 40 mg PO DAILY [facility] Last Admin: 10/21/16 08:11 Dose: 40 mg Phenylephrine HCl (Dagoberto-Synephrine 0.5% Nasal [place]) 1 spry ALLAN Q4 PRN PRN Reason: Nasal congestion Sevelamer HCl (Renagel) 1,600 mg PO TID [facility] Last Admin: 10/21/16 08:09 Dose: 1,600 mg Topiramate (Topamax) 50 mg PO BID [facility] Last Admin: 10/21/16 08:11 Dose: 50 mg Vitamin B Complex/Vit C/Folic Acid (Nephro-Ajay) 1 tab PO DAILY [facility] Last Admin: 10/21/16 08:12 Dose: 1 tab - Labs Labs: 10/19/16 06:00 10/19/16 06:00 PT 17.6 Seconds (9.8-13.1) H 10/15/16 07:00 INR 1.5 (0.9-1.2) H 10/15/16 07:00 APTT 36.6 Seconds (25.6-37.1) 10/15/16 07:00 Assessment and Plan (1) ESRD (end stage renal disease) Status: Chronic (2) Cellulitis of leg Status: Chronic
[2016-10-21 13:42] LABS: BASO # 0.1 K/uL (0.0-0.2); EOS # 0.5 K/uL (0.0-0.7); EOS % 7.4 % (0.0-4.0); HEMATOCRIT 28.8 % (34.0-47.0); LYMPH # 1.1 K/uL (1.0-4.3); LYMPH % 15.4 % (20.0-40.0); MEAN CELL VOLUME 92.2 fl (81.0-99.0); MEAN CORPUSCULAR HEMOGLOBIN 29.6 pg (27.0-31.0); MEAN CORPUSCULAR HGB CONC 32.1 g/dL (33.0-37.0); MEAN PLATELET VOLUME 8.7 fl (7.2-11.7); MONO # 0.4 K/uL (0.0-0.8); MONO % 5.9 % (0.0-10.0); NEUT # 4.9 K/uL (1.8-7.0); NEUT % 70.3 % (50.0-75.0); WHITE BLOOD COUNT 6.9 K/uL (4.8-10.8)
[2016-10-21 14:02] LABS: POTASSIUM 4.2 MMOL/L (3.6-5.0)
--- NOTE | 2016-10-21 15:15 | CP.PCM.PN ---
Subjective - Date & Time of Evaluation Date of Evaluation: 10/21/16 Time of Evaluation: 15:08 - Subjective Subjective: As I noted yesterday, the wound vac on the right BK wound has not been functioning. Patient seen with Ben Nails, wound care nurse, who took down to wound vac dressing to reveal that the entire incision has opened and there was leakage of clotting blood beyond the wound vac dressing. The wound itself has no odor and no purulent drainage. The tissue is pink and does not appear to be infected. A culture was done by swab. A new wound vac dressing was applied, and the pressure was reduced to 75 mm Hg. instead of 125. These changes were discussed with Dr. Mccormack. The abrasions of the right patella are superficial and the new treatment will be for Medihoney with dressing changes every other day. The breast lesions have healed, so the treatment will be Nystatin powder bid. Patient continues on IV meropenem, amikacin, and Zosyn. She is also on po Zyvox and po Diflucan. HD in progress - no problems. Anemia stable (Hgb 9.2). DM controlled (random glucose = 102). We will not restrict carbohydrates. No further vaginal bleeding. Objective - Vital Signs/Intake and Output Vital Signs (last 24 hours): Temp Pulse Resp BP Pulse Ox 97.9 F 116 H 18 123/92 H 95 10/21/16 07:33 10/21/16 07:33 10/21/16 07:33 10/21/16 07:33 10/21/16 07:33 - Medications Medications: Current Medications Acetaminophen (Tylenol 325mg Tab) 650 mg PO Q4 PRN PRN Reason: Fever >100.4 F Last Admin: 10/02/16 16:27 Dose: 650 mg Acetaminophen (Tylenol 325mg Tab) 650 mg PO Q4 PRN PRN Reason: Pain, moderate (4-7) Last Admin: 09/16/16 22:34 Dose: 650 mg Albuterol Sulfate (Albuterol 0.083% Inhal Barbie (2.5 Mg/3 Ml) Ud) 2.5 mg INH RQ4 PRN PRN Reason: Shortness of Breath Albuterol/Ipratropium (Duoneb 3 Mg/0.5 Mg (3 Ml) Ud) 3 ml INH RQ4 PRN PRN Reason: Shortness of Breath Apixaban (Eliquis) 5 mg PO BID [facility] PRN Reason: Protocol Last Admin: 10/21/16 08:11 Dose: 5 mg Aspirin (Ecotrin) 81 mg PO DAILY [facility] Last Admin: 10/21/16 08:11 Dose: 81 mg Atorvastatin Calcium (Lipitor) 40 mg PO DAILY [facility] Last Admin: 10/21/16 08:15 Dose: 40 mg Benzonatate (Tessalon Perles) 200 mg PO TID PRN PRN Reason: Cough Last Admin: 10/02/16 14:07 Dose: 200 mg Cinacalcet (Sensipar) 30 mg PO DAILY [facility] Last Admin: 10/21/16 08:11 Dose: 30 mg Diphenhydramine HCl (Benadryl) 25 mg PO Q6 PRN PRN Reason: Itching / Pruritus Epoetin Tha (Procrit) 20,000 unit IV [facility] [place] Last Admin: 10/18/16 14:10 Dose: 20,000 unit Ergocalciferol (Drisdol 50,000 Intl Units Cap) 1 cap PO Q7D [facility] Stop: 11/06/16 11:16 Last Admin: 10/16/16 11:25 Dose: 1 cap Fluconazole (Diflucan) 100 mg PO DAILY [facility] Last Admin: 10/21/16 08:14 Dose: 100 mg Gabapentin (Neurontin) 300 mg PO TID [facility] Last Admin: 10/21/16 14:06 Dose: 300 mg Hydrocortisone (Anusol-Hc) 1 applic AR BID [facility] Last Admin: 10/21/16 11:22 Dose: Not Given Hydromorphone HCl (Dilaudid) 1 mg IVP Q3H PRN PRN Reason: Pain, severe (8-10) Last Admin: 10/21/16 14:20 Dose: 1 mg Amikacin Sulfate 250 mg/ (Sodium Chloride) 101 mls @ 100.609 mls/hr IVPB MWF [facility] Last Admin: 10/21/16 08:21 Dose: 100.609 mls/hr Meropenem 500 mg/ Sodium (Chloride) 100 mls @ 100 mls/hr IVPB DAILY@0100 [facility] Last Admin: 10/21/16 00:39 Dose: 100 mls/hr Piperacillin Sod/Tazobactam (Sod 2.25 gm/ Sodium Chloride) 100 mls @ 100 mls/ hr IVPB Q12@0600,1800 [facility] Last Admin: 10/21/16 05:48 Dose: 100 mls/hr Sodium Chloride (Sodium Chloride 0.9%) 1,000 mls @ 10 mls/hr IV .Q24H [facility] Last Admin: 10/20/16 19:02 Dose: 10 mls/hr Insulin Detemir (Levemir) 30 units SC HS [facility] Last Admin: 10/20/16 21:34 Dose: 30 units Insulin Human Lispro (Humalog) 8 units SC AC [facility] Last Admin: 10/21/16 14:03 Dose: 8 units Lidocaine (Lidoderm) 1 ea TD DAILY [facility] Last Admin: 10/21/16 08:16 Dose: 1 ea Linezolid (Zyvox) 600 mg PO Q12 [facility] Last Admin: 10/21/16 08:11 Dose: 600 mg Nystatin (Mycostatin Oint) 1 applic TOP TID [facility] Last Admin: 10/21/16 14:23 Dose: 1 applic Ondansetron HCl (Zofran Inj) 4 mg IVP Q6 PRN PRN Reason: Nausea/Vomiting Last Admin: 09/19/16 10:26 Dose: 4 mg Pantoprazole Sodium (Protonix Ec Tab) 40 mg PO DAILY [facility] Last Admin: 10/21/16 08:11 Dose: 40 mg Phenylephrine HCl (Dagoberto-Synephrine 0.5% Nasal [place]) 1 spry ALLAN Q4 PRN PRN Reason: Nasal congestion Sevelamer HCl (Renagel) 1,600 mg PO TID [facility] Last Admin: 10/21/16 14:03 Dose: 1,600 mg Topiramate (Topamax) 50 mg PO BID [facility] Last Admin: 10/21/16 08:11 Dose: 50 mg Vitamin B Complex/Vit C/Folic Acid (Nephro-Ajay) 1 tab PO DAILY [facility] Last Admin: 10/21/16 08:12 Dose: 1 tab - Labs Labs: 10/21/16 13:00 10/21/16 13:00 PT 17.6 Seconds (9.8-13.1) H 10/15/16 07:00 INR 1.5 (0.9-1.2) H 10/15/16 07:00 APTT 36.6 Seconds (25.6-37.1) 10/15/16 07:00 - Constitutional Appears: No Acute Distress - Head Exam Head Exam: NORMAL INSPECTION - ENT Exam ENT Exam: Mucous Membranes Moist - Neck Exam Neck Exam: Normal Inspection - Respiratory Exam Respiratory Exam: Clear to Ausculation Bilateral, Wheezes - Cardiovascular Exam Cardiovascular Exam: REGULAR RHYTHM, +S1, +S2 - GI/Abdominal Exam GI & Abdominal Exam: Soft - Extremities Exam Additional comments: See subjective (above) for description of right BK amputation and right patellar wounds. Other extremities as before. Left femoral PICC line intact. - Back Exam Back Exam: NORMAL INSPECTION - Neurological Exam Neurological Exam: Alert, Awake, CN II-XII Intact, Oriented x3 - Psychiatric Exam Psychiatric exam: Anxious - Skin Skin Exam: Normal Color, Warm Additional comments: See subjective Assessment and Plan (1) Status post below knee amputation of right lower extremity Assessment & Plan: Coming along OK with need for wound vac to surgical incision and Medihoney to patellar abrasion. Continue IV and po antibiotics. BK wound was re-cultured today by swab since we were able to access a deep crevice in the wound. Status: Acute (2) Osteomyelitis of ankle or foot Status: Acute (3) ESRD (end stage renal disease) on dialysis Status: Chronic (4) DM type 2 (diabetes mellitus, type 2) Status: Chronic (5) Coagulopathy Status: Chronic (6) Anemia, blood loss Assessment & Plan: Must aim for Hgb close to 10 to permit wound healing. Will follow H & H closely and discuss with Dr. Evita Shepard. Status: Acute (7) Peripheral arterial occlusive disease Status: Chronic
--- NOTE | 2016-10-21 16:27 | PN ---
DATE: 10/21/2016 ROOM: 663 This is a 46-year-old female with near optimal metabolic control of her diabetic condition, currently on a basal and bolus insulin regimen as noted and is now being followed closely for metabolic manage ment. She underwent a recent right below-knee amputation for management of severe underlying right h eel osteomyelitis and associated peripheral arterial vasculopathy. Her latest chemistry showed a BUN of 37, sodium 141, potassium 4.2, chloride 102, CO2 26, glucose 102 and creatinine 5.1. So at this time, we will continue the same basal and bolus insulin regimen as given with Humalog give n as 8 units subQ t.i.d. before meals as ordered. We will continue the Levemir given as 30 units sub Q at bedtime daily as given. We will titrate incrementally as indicated to optimize metabolic contro l. We will follow. Irene Ambrose MD cc: [phone] TT: 10/21/2016 16:26:23 Confirmation # [id number] Dictation # [id number] en
[2016-10-21] MEDS: Epoetin Alfa 20000 UNIT/ML Inj IV SCH (21:00)
[2016-10-21] MEDS: Insulin Detemir 100 Units/ml Inj SC SCH (21:53)
--- NOTE | 2016-10-21 22:41 | CP.PCM.PN ---
Subjective - Date & Time of Evaluation Date of Evaluation: 10/21/16 Time of Evaluation: 20:40 - Subjective Subjective: Patient is more stable and her Right BKA Stump wound is having a good Vacuum drainage now. Continue pain control prn Wound Culture: No growth final knee immobilizer discontinued Continue PT/OT s/p Vaginal D&C No seizures are reported. She is on Po Topamax 50 mg Q12 hrs. She is receiving Hemodialysis for her ESRD. Objective - Vital Signs/Intake and Output Vital Signs (last 24 hours): Temp Pulse Resp BP Pulse Ox 97.6 F 110 H 20 101/59 L 100 10/21/16 16:15 10/21/16 16:15 10/21/16 16:15 10/21/16 16:15 10/21/16 16:15 - Medications Medications: Current Medications Acetaminophen (Tylenol 325mg Tab) 650 mg PO Q4 PRN PRN Reason: Fever >100.4 F Last Admin: 10/02/16 16:27 Dose: 650 mg Acetaminophen (Tylenol 325mg Tab) 650 mg PO Q4 PRN PRN Reason: Pain, moderate (4-7) Last Admin: 09/16/16 22:34 Dose: 650 mg Albuterol Sulfate (Albuterol 0.083% Inhal Barbie (2.5 Mg/3 Ml) Ud) 2.5 mg INH RQ4 PRN PRN Reason: Shortness of Breath Albuterol/Ipratropium (Duoneb 3 Mg/0.5 Mg (3 Ml) Ud) 3 ml INH RQ4 PRN PRN Reason: Shortness of Breath Apixaban (Eliquis) 5 mg PO BID [facility] PRN Reason: Protocol Last Admin: 10/21/16 18:46 Dose: 5 mg Aspirin (Ecotrin) 81 mg PO DAILY [facility] Last Admin: 10/21/16 08:11 Dose: 81 mg Atorvastatin Calcium (Lipitor) 40 mg PO DAILY [facility] Last Admin: 10/21/16 08:15 Dose: 40 mg Benzonatate (Tessalon Perles) 200 mg PO TID PRN PRN Reason: Cough Last Admin: 10/02/16 14:07 Dose: 200 mg Cinacalcet (Sensipar) 30 mg PO DAILY [facility] Last Admin: 10/21/16 08:11 Dose: 30 mg Diphenhydramine HCl (Benadryl) 25 mg PO Q6 PRN PRN Reason: Itching / Pruritus Epoetin Tha (Procrit) 20,000 unit IV MWF [facility] Last Admin: 10/21/16 21:00 Dose: 20,000 unit Ergocalciferol (Drisdol 50,000 Intl Units Cap) 1 cap PO Q7D [facility] Stop: 11/06/16 11:16 Last Admin: 10/16/16 11:25 Dose: 1 cap Fluconazole (Diflucan) 100 mg PO DAILY [facility] Last Admin: 10/21/16 08:14 Dose: 100 mg Gabapentin (Neurontin) 300 mg PO TID [facility] Last Admin: 10/21/16 18:46 Dose: 300 mg Hydrocortisone (Anusol-Hc) 1 applic [place] BID [facility] Last Admin: 10/21/16 18:48 Dose: Not Given Hydromorphone HCl (Dilaudid) 1 mg IVP Q3H PRN PRN Reason: Pain, severe (8-10) Last Admin: 10/21/16 20:45 Dose: 1 mg Amikacin Sulfate 250 mg/ (Sodium Chloride) 101 mls @ 100.609 mls/hr IVPB MWF [facility] Last Admin: 10/21/16 08:21 Dose: 100.609 mls/hr Meropenem 500 mg/ Sodium (Chloride) 100 mls @ 100 mls/hr IVPB DAILY@0100 [facility] Last Admin: 10/21/16 00:39 Dose: 100 mls/hr Piperacillin Sod/Tazobactam (Sod 2.25 gm/ Sodium Chloride) 100 mls @ 100 mls/ hr IVPB Q12@0600,1800 [facility] Last Admin: 10/21/16 18:56 Dose: 100 mls/hr Sodium Chloride (Sodium Chloride 0.9%) 1,000 mls @ 10 mls/hr IV .Q24H [facility] Last Admin: 10/20/16 19:02 Dose: 10 mls/hr Insulin Detemir (Levemir) 30 units SC HS [facility] Last Admin: 10/21/16 21:53 Dose: 30 units Insulin Human Lispro (Humalog) 8 units SC AC [facility] Last Admin: 10/21/16 17:49 Dose: 8 units Lidocaine (Lidoderm) 1 ea TD DAILY [facility] Last Admin: 10/21/16 08:16 Dose: 1 ea Linezolid (Zyvox) 600 mg PO Q12 [facility] Last Admin: 10/21/16 20:47 Dose: 600 mg Nystatin (Nystop Topical Powder) 1 applic TOP BID [facility] Last Admin: 10/21/16 18:47 Dose: 1 applic Ondansetron HCl (Zofran Inj) 4 mg IVP Q6 PRN PRN Reason: Nausea/Vomiting Last Admin: 09/19/16 10:26 Dose: 4 mg Pantoprazole Sodium (Protonix Ec Tab) 40 mg PO DAILY [facility] Last Admin: 10/21/16 08:11 Dose: 40 mg Phenylephrine HCl (Dagoberto-Synephrine 0.5% Nasal [place]) 1 spry ALLAN Q4 PRN PRN Reason: Nasal congestion Sevelamer HCl (Renagel) 1,600 mg PO TID [facility] Last Admin: 10/21/16 18:46 Dose: 1,600 mg Topiramate (Topamax) 50 mg PO BID [facility] Last Admin: 10/21/16 18:47 Dose: 50 mg Vitamin B Complex/Vit C/Folic Acid (Nephro-Ajay) 1 tab PO DAILY [facility] Last Admin: 10/21/16 08:12 Dose: 1 tab - Labs Labs: 10/21/16 13:00 10/21/16 13:00 PT 17.6 Seconds (9.8-13.1) H 10/15/16 07:00 INR 1.5 (0.9-1.2) H 10/15/16 07:00 APTT 36.6 Seconds (25.6-37.1) 10/15/16 07:00 Assessment and Plan (1) Diabetes Status: Chronic (2) ESRD (end stage renal disease) Status: Chronic (3) Cellulitis of leg Status: Chronic (4) Hyperlipidemia Status: Chronic (5) Back pain Status: Acute (6) Bacteremia due to Gram-negative bacteria Status: Acute (7) Diabetes mellitus type 2 with peripheral artery disease Status: Acute (8) PVD (peripheral vascular disease) Status: Acute (9) Osteomyelitis of right foot Status: Acute (10) Fungal infection right foot Status: Acute
[2016-10-22] MEDS: Meropenem 500 MG in Sodium Chloride 0.9% 100 ML IVPB SCH
--- NOTE | 2016-10-22 08:03 | CP.PCM.PN ---
Subjective - Date & Time of Evaluation Date of Evaluation: 10/22/16 Time of Evaluation: 07:01 - Subjective Subjective: This is a vascular surgery progress note for Dr. Mccormack: 46 y/o female patient 7 days s/p I&D of Right BKA stump (I&D 10/15/16, BKA 2016) was seen at bedside this morning. Wound VAC changed yesterday appears intact, functioning @ 75 mmHg. Patient denies of any pain/N/V/F/C or SOB today. Objective - Vital Signs/Intake and Output Vital Signs (last 24 hours): Temp Pulse Resp BP Pulse Ox 97.3 F L 104 H 18 106/68 96 10/22/16 00:12 10/22/16 00:12 10/22/16 00:12 10/22/16 00:12 10/22/16 00:12 - Medications Medications: Current Medications Acetaminophen (Tylenol 325mg Tab) 650 mg PO Q4 PRN PRN Reason: Fever >100.4 F Last Admin: 10/02/16 16:27 Dose: 650 mg Acetaminophen (Tylenol 325mg Tab) 650 mg PO Q4 PRN PRN Reason: Pain, moderate (4-7) Last Admin: 09/16/16 22:34 Dose: 650 mg Albuterol Sulfate (Albuterol 0.083% Inhal Barbie (2.5 Mg/3 Ml) Ud) 2.5 mg INH RQ4 PRN PRN Reason: Shortness of Breath Albuterol/Ipratropium (Duoneb 3 Mg/0.5 Mg (3 Ml) Ud) 3 ml INH RQ4 PRN PRN Reason: Shortness of Breath Apixaban (Eliquis) 5 mg PO BID [facility] PRN Reason: Protocol Last Admin: 10/21/16 18:46 Dose: 5 mg Aspirin (Ecotrin) 81 mg PO DAILY [facility] Last Admin: 10/21/16 08:11 Dose: 81 mg Atorvastatin Calcium (Lipitor) 40 mg PO DAILY [facility] Last Admin: 10/21/16 08:15 Dose: 40 mg Benzonatate (Tessalon Perles) 200 mg PO TID PRN PRN Reason: Cough Last Admin: 10/02/16 14:07 Dose: 200 mg Cinacalcet (Sensipar) 30 mg PO DAILY [facility] Last Admin: 10/21/16 08:11 Dose: 30 mg Diphenhydramine HCl (Benadryl) 25 mg PO Q6 PRN PRN Reason: Itching / Pruritus Epoetin Tha (Procrit) 20,000 unit IV F [facility] Last Admin: 10/21/16 21:00 Dose: 20,000 unit Ergocalciferol (Drisdol 50,000 Intl Units Cap) 1 cap PO Q7D [facility] Stop: 11/06/16 11:16 Last Admin: 10/16/16 11:25 Dose: 1 cap Fluconazole (Diflucan) 100 mg PO DAILY [facility] Last Admin: 10/21/16 08:14 Dose: 100 mg Gabapentin (Neurontin) 300 mg PO TID [facility] Last Admin: 10/21/16 18:46 Dose: 300 mg Hydrocortisone (Anusol-Hc) 1 applic [place] BID [facility] Last Admin: 10/21/16 18:48 Dose: Not Given Hydromorphone HCl (Dilaudid) 1 mg IVP Q3H PRN PRN Reason: Pain, severe (8-10) Last Admin: 10/22/16 06:24 Dose: 1 mg Amikacin Sulfate 250 mg/ (Sodium Chloride) 101 mls @ 100.609 mls[facility] Last Admin: 10/21/16 08:21 Dose: 100.609 mls/hr Meropenem 500 mg/ Sodium (Chloride) 100 mls @ 100 mls/hr IVPB DAILY@0100 [facility] Last Admin: 10/22/16 00:00 Dose: 100 mls/hr Piperacillin Sod/Tazobactam (Sod 2.25 gm/ Sodium Chloride) 100 mls @ 100 mls/ hr IVPB Q12@0600,1800 [facility] Last Admin: 10/22/16 05:01 Dose: 100 mls/hr Sodium Chloride (Sodium Chloride 0.9%) 1,000 mls @ 10 mls/hr IV .Q24H [facility] Last Admin: 10/20/16 19:02 Dose: 10 mls/hr Insulin Detemir (Levemir) 30 units SC HS [facility] Last Admin: 10/21/16 21:53 Dose: 30 units Insulin Human Lispro (Humalog) 8 units SC AC [facility] Last Admin: 10/21/16 17:49 Dose: 8 units Lidocaine (Lidoderm) 1 ea TD DAILY [facility] Last Admin: 10/21/16 08:16 Dose: 1 ea Linezolid (Zyvox) 600 mg PO Q12 [facility] Last Admin: 10/21/16 20:47 Dose: 600 mg Nystatin (Nystop Topical Powder) 1 applic TOP BID [facility] Last Admin: 10/21/16 18:47 Dose: 1 applic Ondansetron HCl (Zofran Inj) 4 mg IVP Q6 PRN PRN Reason: Nausea/Vomiting Last Admin: 09/19/16 10:26 Dose: 4 mg Pantoprazole Sodium (Protonix Ec Tab) 40 mg PO DAILY [facility] Last Admin: 10/21/16 08:11 Dose: 40 mg Phenylephrine HCl (Dagoberto-Synephrine 0.5% Nasal [place]) 1 spry ALLAN Q4 PRN PRN Reason: Nasal congestion Sevelamer HCl (Renagel) 1,600 mg PO TID [facility] Last Admin: 10/21/16 18:46 Dose: 1,600 mg Topiramate (Topamax) 50 mg PO BID [facility] Last Admin: 10/21/16 18:47 Dose: 50 mg Vitamin B Complex/Vit C/Folic Acid (Nephro-Ajay) 1 tab PO DAILY [facility] Last Admin: 10/21/16 08:12 Dose: 1 tab - Labs Labs: 10/21/16 13:00 10/21/16 13:00 PT 17.6 Seconds (9.8-13.1) H 10/15/16 07:00 INR 1.5 (0.9-1.2) H 10/15/16 07:00 APTT 36.6 Seconds (25.6-37.1) 10/15/16 07:00 - Constitutional Appears: Well, Non-toxic, No Acute Distress - Back Exam Additional comments: Dressing to Right knee Wound VAC functioning @ 75 mmHg - Neurological Exam Neurological Exam: Oriented x3 - Psychiatric Exam Psychiatric exam: Normal Affect, Normal Mood - Skin Skin Exam: Normal Color, Warm Assessment and Plan - Assessment and Plan (Free Text) Assessment: 46F s/p Incision and drainage, wound VAC placement of Right BKA stump POD#7 ( Right BKA 10/01/16) Plan: - Wound VAC intact - Continue pain control prn - WCX: No growth final - Continue PT/OT - s/p Vaginal D&C
[2016-10-22] MEDS: Insulin Lispro (humaLOG) 100 Units/ml Inj SC SCH ×3 (08:30→17:48)
[2016-10-22] MEDS: Hydrocortisone 2.5% (Rectal) CREAM PR SCH ×2 (08:34→17:48)
[2016-10-22] MEDS: Pantoprazole 40 mg EC Tab PO SCH (08:35)
[2016-10-22] MEDS: Multivitamin Vitamin B Complex (Nephro-Vite) Tab PO SCH (08:36)
[2016-10-22] MEDS: Lidocaine 5% Patch TD SCH (08:36)
--- NOTE | 2016-10-22 11:18 | CP.PCM.PN ---
Subjective - Date & Time of Evaluation Date of Evaluation: 10/22/16 Time of Evaluation: 11:12 - Subjective Subjective: Patient is comfortable, awaiting start of physical and occupational therapy today. Wound vac was properly placed and negative pressure reduced to 75 mm Hg to treat complete dehiscence of surgical wound. There is no leakage. There is 80 cc of serosanguinous drainage in wound vac container since yesterday. Patient has less pain (none at rest) and no fevers. We did a repeat wound culture on the right surgical wound. Dr. Lemon has been updated and shown pictures and will consider possible antibiotic adjustments. DM controlled on current regimen. No further seizures - on Topamax (Dr. Maguire's neurology note appreciated). Coagulopathy - thrombophilia - controlled on Eliquis and ASA. Due for HD tomorrow. Will check CBC and BMP then. Will discuss with Dr. Evita Shepard but would like to keep Hgb around 10 to allow for wound healing. Objective - Vital Signs/Intake and Output Vital Signs (last 24 hours): Temp Pulse Resp BP Pulse Ox 98.5 F 109 H 20 104/62 100 10/22/16 08:19 10/22/16 08:19 10/22/16 08:19 10/22/16 08:19 10/22/16 08:19 - Medications Medications: Current Medications Acetaminophen (Tylenol 325mg Tab) 650 mg PO Q4 PRN PRN Reason: Fever >100.4 F Last Admin: 10/02/16 16:27 Dose: 650 mg Acetaminophen (Tylenol 325mg Tab) 650 mg PO Q4 PRN PRN Reason: Pain, moderate (4-7) Last Admin: 09/16/16 22:34 Dose: 650 mg Albuterol Sulfate (Albuterol 0.083% Inhal Barbie (2.5 Mg/3 Ml) Ud) 2.5 mg INH RQ4 PRN PRN Reason: Shortness of Breath Albuterol/Ipratropium (Duoneb 3 Mg/0.5 Mg (3 Ml) Ud) 3 ml INH RQ4 PRN PRN Reason: Shortness of Breath Apixaban (Eliquis) 5 mg PO BID [facility] PRN Reason: Protocol Last Admin: 10/22/16 08:35 Dose: 5 mg Aspirin (Ecotrin) 81 mg PO DAILY [facility] Last Admin: 10/22/16 08:36 Dose: 81 mg Atorvastatin Calcium (Lipitor) 40 mg PO DAILY [facility] Last Admin: 10/22/16 08:35 Dose: 40 mg Benzonatate (Tessalon Perles) 200 mg PO TID PRN PRN Reason: Cough Last Admin: 10/02/16 14:07 Dose: 200 mg Cinacalcet (Sensipar) 30 mg PO DAILY [facility] Last Admin: 10/22/16 08:36 Dose: 30 mg Diphenhydramine HCl (Benadryl) 25 mg PO Q6 PRN PRN Reason: Itching / Pruritus Epoetin Tha (Procrit) 20,000 unit IV MWF [facility] Last Admin: 10/21/16 21:00 Dose: 20,000 unit Ergocalciferol (Drisdol 50,000 Intl Units Cap) 1 cap PO Q7D [facility] Stop: 11/06/16 11:16 Last Admin: 10/16/16 11:25 Dose: 1 cap Fluconazole (Diflucan) 100 mg PO DAILY [facility] Last Admin: 10/22/16 08:36 Dose: 100 mg Gabapentin (Neurontin) 300 mg PO TID [facility] Last Admin: 10/22/16 08:35 Dose: 300 mg Hydrocortisone (Anusol-Hc) 1 applic NC BID [facility] Last Admin: 10/22/16 08:34 Dose: Not Given Hydromorphone HCl (Dilaudid) 1 mg IVP Q3H PRN PRN Reason: Pain, severe (8-10) Last Admin: 10/22/16 06:24 Dose: 1 mg Amikacin Sulfate 250 mg/ (Sodium Chloride) 101 mls @ 100.609 mls/hr IVPB MWF [facility] Last Admin: 10/21/16 08:21 Dose: 100.609 mls/hr Meropenem 500 mg/ Sodium (Chloride) 100 mls @ 100 mls/hr IVPB DAILY@0100 [facility] Last Admin: 10/22/16 00:00 Dose: 100 mls/hr Piperacillin Sod/Tazobactam (Sod 2.25 gm/ Sodium Chloride) 100 mls @ 100 mls/ hr IVPB Q12@0600,1800 [facility] Last Admin: 10/22/16 05:01 Dose: 100 mls/hr Sodium Chloride (Sodium Chloride 0.9%) 1,000 mls @ 10 mls/hr IV .Q24H [facility] Last Admin: 10/20/16 19:02 Dose: 10 mls/hr Insulin Detemir (Levemir) 30 units SC HS [facility] Last Admin: 10/21/16 21:53 Dose: 30 units Insulin Human Lispro (Humalog) 8 units SC AC [facility] Last Admin: 10/22/16 08:30 Dose: 8 units Lidocaine (Lidoderm) 1 ea TD DAILY [facility] Last Admin: 10/22/16 08:36 Dose: 1 ea Linezolid (Zyvox) 600 mg PO Q12 [facility] Last Admin: 10/22/16 08:35 Dose: 600 mg Nystatin (Nystop Topical Powder) 1 applic TOP BID [facility] Last Admin: 10/21/16 18:47 Dose: 1 applic Ondansetron HCl (Zofran Inj) 4 mg IVP Q6 PRN PRN Reason: Nausea/Vomiting Last Admin: 09/19/16 10:26 Dose: 4 mg Pantoprazole Sodium (Protonix Ec Tab) 40 mg PO DAILY [facility] Last Admin: 10/22/16 08:35 Dose: 40 mg Phenylephrine HCl (Dagoberto-Synephrine 0.5% Nasal [place]) 1 spry ALLAN Q4 PRN PRN Reason: Nasal congestion Sevelamer HCl (Renagel) 1,600 mg PO TID [facility] Last Admin: 10/21/16 18:46 Dose: 1,600 mg Topiramate (Topamax) 50 mg PO BID [facility] Last Admin: 10/22/16 08:36 Dose: 50 mg Vitamin B Complex/Vit C/Folic Acid (Nephro-Ajay) 1 tab PO DAILY [facility] Last Admin: 10/22/16 08:36 Dose: 1 tab - Labs Labs: 10/21/16 13:00 10/21/16 13:00 PT 17.6 Seconds (9.8-13.1) H 10/15/16 07:00 INR 1.5 (0.9-1.2) H 10/15/16 07:00 APTT 36.6 Seconds (25.6-37.1) 10/15/16 07:00 - Constitutional Appears: No Acute Distress - Head Exam Head Exam: NORMAL INSPECTION - Eye Exam Eye Exam: Normal appearance - ENT Exam ENT Exam: Mucous Membranes Moist - Neck Exam Neck Exam: Normal Inspection Additional comments: R subclavian Permacath in place. - Respiratory Exam Respiratory Exam: Clear to Ausculation Bilateral, NORMAL BREATHING PATTERN - Cardiovascular Exam Cardiovascular Exam: REGULAR RHYTHM, +S1, +S2 - GI/Abdominal Exam GI & Abdominal Exam: Soft - Exam Speculum exam: absent: Vaginal Bleeding - Extremities Exam Additional comments: Wound vac in place R BK incision site. See yesterday's note (subjective section) for details of wound appearance. Medihoney dressing on right patella excoriated area. To be changed q2d - next tomorrow. PICC line in place L femoral vein. Otherwise no changes. - Back Exam Back Exam: NORMAL INSPECTION - Neurological Exam Neurological Exam: Alert, Awake, CN II-XII Intact, Oriented x3 - Psychiatric Exam Psychiatric exam: Normal Affect, Normal Mood - Skin Skin Exam: Dry, Normal Color, Warm Assessment and Plan (1) Status post below knee amputation of right lower extremity Assessment & Plan: SEE SUBJECTIVE. Status: Acute (2) Osteomyelitis of ankle or foot Status: Acute (3) ESRD (end stage renal disease) on dialysis Assessment & Plan: We must keep up our guard here. I am not ready to write "status post." Status: Chronic (4) DM type 2 (diabetes mellitus, type 2) Assessment & Plan: SEE SUBJECTIVE. Status: Chronic (5) Coagulopathy Assessment & Plan: SEE SUBJECTIVE. Status: Chronic (6) Anemia, blood loss Assessment & Plan: SEE SUBJECTIVE. Status: Acute (7) Peripheral arterial occlusive disease Status: Chronic - Assessment and Plan (Free Text) Plan: NOTA BENE: We are still optimistic about the right BK amputation and patient's ability to heal. To continue meticulous wound care. Wound vac should not be changed too frequently as this disrupts the wound base and delays healing. We should allow wound vac changes only by wound care specialists.
--- NOTE | 2016-10-22 13:18 | CP.PCM.PN ---
Subjective - Date & Time of Evaluation Date of Evaluation: 10/22/16 Time of Evaluation: 13:16 - Subjective Subjective: No overnight event reported Patient completed hemodialysis yesterday very well Patient sitting on the chair out of bed on a recliner The problem and plan as noted previously on my previous note no significant changes from my part continue hemodialysis. Discussed with the PCP . Objective - Vital Signs/Intake and Output Vital Signs (last 24 hours): Temp Pulse Resp BP Pulse Ox 98.5 F 109 H 20 104/62 100 10/22/16 08:19 10/22/16 08:19 10/22/16 08:19 10/22/16 08:19 10/22/16 08:19 - Medications Medications: Current Medications Acetaminophen (Tylenol 325mg Tab) 650 mg PO Q4 PRN PRN Reason: Fever >100.4 F Last Admin: 10/02/16 16:27 Dose: 650 mg Acetaminophen (Tylenol 325mg Tab) 650 mg PO Q4 PRN PRN Reason: Pain, moderate (4-7) Last Admin: 09/16/16 22:34 Dose: 650 mg Albuterol Sulfate (Albuterol 0.083% Inhal Barbie (2.5 Mg/3 Ml) Ud) 2.5 mg INH RQ4 PRN PRN Reason: Shortness of Breath Albuterol/Ipratropium (Duoneb 3 Mg/0.5 Mg (3 Ml) Ud) 3 ml INH RQ4 PRN PRN Reason: Shortness of Breath Apixaban (Eliquis) 5 mg PO BID [facility] PRN Reason: Protocol Last Admin: 10/22/16 08:35 Dose: 5 mg Aspirin (Ecotrin) 81 mg PO DAILY [facility] Last Admin: 10/22/16 08:36 Dose: 81 mg Atorvastatin Calcium (Lipitor) 40 mg PO DAILY [facility] Last Admin: 10/22/16 08:35 Dose: 40 mg Benzonatate (Tessalon Perles) 200 mg PO TID PRN PRN Reason: Cough Last Admin: 10/02/16 14:07 Dose: 200 mg Cinacalcet (Sensipar) 30 mg PO DAILY [facility] Last Admin: 10/22/16 08:36 Dose: 30 mg Diphenhydramine HCl (Benadryl) 25 mg PO Q6 PRN PRN Reason: Itching / Pruritus Epoetin Tha (Procrit) 20,000 unit IV MWF [facility] Last Admin: 10/21/16 21:00 Dose: 20,000 unit Ergocalciferol (Drisdol 50,000 Intl Units Cap) 1 cap PO Q7D [facility] Stop: 11/06/16 11:16 Last Admin: 10/16/16 11:25 Dose: 1 cap Fluconazole (Diflucan) 100 mg PO DAILY [facility] Last Admin: 10/22/16 08:36 Dose: 100 mg Gabapentin (Neurontin) 300 mg PO TID [facility] Last Admin: 10/22/16 12:56 Dose: 300 mg Hydrocortisone (Anusol-Hc) 1 applic CO BID [facility] Last Admin: 10/22/16 08:34 Dose: Not Given Hydromorphone HCl (Dilaudid) 1 mg IVP Q3H PRN PRN Reason: Pain, severe (8-10) Last Admin: 10/22/16 11:22 Dose: 1 mg Amikacin Sulfate 250 mg/ (Sodium Chloride) 101 mls @ 100.609 mls/hr IVPB MWF [facility] Last Admin: 10/21/16 08:21 Dose: 100.609 mls/hr Meropenem 500 mg/ Sodium (Chloride) 100 mls @ 100 mls/hr IVPB DAILY@0100 [facility] Last Admin: 10/22/16 00:00 Dose: 100 mls/hr Piperacillin Sod/Tazobactam (Sod 2.25 gm/ Sodium Chloride) 100 mls @ 100 mls/ hr IVPB Q12@0600,1800 [facility] Last Admin: 10/22/16 05:01 Dose: 100 mls/hr Sodium Chloride (Sodium Chloride 0.9%) 1,000 mls @ 10 mls/hr IV .Q24H [facility] Last Admin: 10/20/16 19:02 Dose: 10 mls/hr Insulin Detemir (Levemir) 30 units SC HS [facility] Last Admin: 10/21/16 21:53 Dose: 30 units Insulin Human Lispro (Humalog) 8 units SC AC [facility] Last Admin: 10/22/16 11:57 Dose: 8 units Lidocaine (Lidoderm) 1 ea TD DAILY [facility] Last Admin: 10/22/16 08:36 Dose: 1 ea Linezolid (Zyvox) 600 mg PO Q12 [facility] Last Admin: 10/22/16 08:35 Dose: 600 mg Nystatin (Nystop Topical Powder) 1 applic TOP BID [facility] Last Admin: 10/22/16 10:56 Dose: 1 applic Ondansetron HCl (Zofran Inj) 4 mg IVP Q6 PRN PRN Reason: Nausea/Vomiting Last Admin: 09/19/16 10:26 Dose: 4 mg Pantoprazole Sodium (Protonix Ec Tab) 40 mg PO DAILY [facility] Last Admin: 10/22/16 08:35 Dose: 40 mg Phenylephrine HCl (Dagoberto-Synephrine 0.5% Nasal [place]) 1 spry ALLAN Q4 PRN PRN Reason: Nasal congestion Sevelamer HCl (Renagel) 1,600 mg PO TID [facility] Last Admin: 10/21/16 18:46 Dose: 1,600 mg Topiramate (Topamax) 50 mg PO BID [facility] Last Admin: 10/22/16 08:36 Dose: 50 mg Vitamin B Complex/Vit C/Folic Acid (Nephro-Ajay) 1 tab PO DAILY [facility] Last Admin: 10/22/16 08:36 Dose: 1 tab - Labs Labs: 10/21/16 13:00 10/21/16 13:00 PT 17.6 Seconds (9.8-13.1) H 10/15/16 07:00 INR 1.5 (0.9-1.2) H 10/15/16 07:00 APTT 36.6 Seconds (25.6-37.1) 10/15/16 07:00 Assessment and Plan (1) ESRD (end stage renal disease) Status: Chronic (2) Cellulitis of leg Status: Chronic
--- NOTE | 2016-10-22 15:24 | PN ---
DATE: 10/22/2016 ROOM: 663 SUBJECTIVE: This is a 46-year-old female with recent uncontrolled type 2 insulin-requiring diabetes, now being followed postoperatively for metabolic management. She continues to have improved glycemi c profile postop following a right below-knee amputation as noted. Her chemistry showed a BUN of 37, sodium 141, potassium 4.2, chloride 102, CO2 26, glucose 102, and creatinine 5.1. So, at this time, we will continue the same basal and bolus insulin regimen as given with Levemir given as 30 units horan bQ at bedtime daily and Humalog given as 8 units subQ t.i.d. before meals as ordered. We will titrat e incrementally as indicated to optimize metabolic control. We will follow. Irene Ambrose MD cc: [id number] TT: 10/22/2016 15:24:22 Confirmation # [id number] Dictation # [id number] amalia
[2016-10-22] MEDS: Sodium Chloride 0.9% 1,000 ML IV SCH (17:47)
[2016-10-22] MEDS: Insulin Detemir 100 Units/ml Inj SC SCH (21:16)
[2016-10-23] MEDS: Meropenem 500 MG in Sodium Chloride 0.9% 100 ML IVPB SCH ×2 (00:04→23:58)
--- NOTE | 2016-10-23 01:05 | CP.PCM.PN ---
Subjective - Date & Time of Evaluation Date of Evaluation: 10/22/16 Time of Evaluation: 21:30 - Subjective Subjective: She is stable, infection looks controlled. She needs adjustment of her doses of Antibiotics. The Right BKA Vacuum Stump is working appropriately. She is not reported having any seizures. The wound is healing. She is alert awake oriented. She is receiving Hemodialysis as scheduled for her ESRD. Objective - Vital Signs/Intake and Output Vital Signs (last 24 hours): Temp Pulse Resp BP Pulse Ox 98.4 F 107 H 19 97/43 L 97 10/23/16 00:33 10/23/16 00:33 10/23/16 00:33 10/23/16 00:33 10/23/16 00:33 - Medications Medications: Current Medications Acetaminophen (Tylenol 325mg Tab) 650 mg PO Q4 PRN PRN Reason: Fever >100.4 F Last Admin: 10/02/16 16:27 Dose: 650 mg Acetaminophen (Tylenol 325mg Tab) 650 mg PO Q4 PRN PRN Reason: Pain, moderate (4-7) Last Admin: 09/16/16 22:34 Dose: 650 mg Albuterol Sulfate (Albuterol 0.083% Inhal Barbie (2.5 Mg/3 Ml) Ud) 2.5 mg INH RQ4 PRN PRN Reason: Shortness of Breath Albuterol/Ipratropium (Duoneb 3 Mg/0.5 Mg (3 Ml) Ud) 3 ml INH RQ4 PRN PRN Reason: Shortness of Breath Apixaban (Eliquis) 5 mg PO BID [facility] PRN Reason: Protocol Last Admin: 10/22/16 17:48 Dose: 5 mg Aspirin (Ecotrin) 81 mg PO DAILY [facility] Last Admin: 10/22/16 08:36 Dose: 81 mg Atorvastatin Calcium (Lipitor) 40 mg PO DAILY [facility] Last Admin: 10/22/16 08:35 Dose: 40 mg Benzonatate (Tessalon Perles) 200 mg PO TID PRN PRN Reason: Cough Last Admin: 10/02/16 14:07 Dose: 200 mg Cinacalcet (Sensipar) 30 mg PO DAILY [facility] Last Admin: 10/22/16 08:36 Dose: 30 mg Diphenhydramine HCl (Benadryl) 25 mg PO Q6 PRN PRN Reason: Itching / Pruritus Epoetin Tha (Procrit) 20,000 unit IV MWF [facility] Last Admin: 10/21/16 21:00 Dose: 20,000 unit Ergocalciferol (Drisdol 50,000 Intl Units Cap) 1 cap PO Q7D [facility] Stop: 11/06/16 11:16 Last Admin: 10/16/16 11:25 Dose: 1 cap Fluconazole (Diflucan) 100 mg PO DAILY [facility] Last Admin: 10/22/16 08:36 Dose: 100 mg Gabapentin (Neurontin) 300 mg PO TID [facility] Last Admin: 10/22/16 17:47 Dose: 300 mg Hydrocortisone (Anusol-Hc) 1 applic DE BID [facility] Last Admin: 10/22/16 17:48 Dose: Not Given Hydromorphone HCl (Dilaudid) 1 mg IVP Q3H PRN PRN Reason: Pain, severe (8-10) Last Admin: 10/23/16 00:02 Dose: 1 mg Amikacin Sulfate 250 mg/ (Sodium Chloride) 101 mls @ 100.609 mls/hr IVPB MWF [facility] Last Admin: 10/21/16 08:21 Dose: 100.609 mls/hr Meropenem 500 mg/ Sodium (Chloride) 100 mls @ 100 mls/hr IVPB DAILY@0100 [facility] Last Admin: 10/23/16 00:04 Dose: 100 mls/hr Piperacillin Sod/Tazobactam (Sod 2.25 gm/ Sodium Chloride) 100 mls @ 100 mls/ hr IVPB Q12@0600,1800 [facility] Last Admin: 10/22/16 17:46 Dose: 100 mls/hr Sodium Chloride (Sodium Chloride 0.9%) 1,000 mls @ 10 mls/hr IV .Q24H [facility] Last Admin: 10/22/16 17:47 Dose: 10 mls/hr Insulin Detemir (Levemir) 30 units SC HS [facility] Last Admin: 10/22/16 21:16 Dose: 30 units Insulin Human Lispro (Humalog) 8 units SC AC [facility] Last Admin: 10/22/16 17:48 Dose: 8 units Lidocaine (Lidoderm) 1 ea TD DAILY [facility] Last Admin: 10/22/16 08:36 Dose: 1 ea Linezolid (Zyvox) 600 mg PO Q12 [facility] Last Admin: 10/22/16 21:16 Dose: 600 mg Nystatin (Nystop Topical Powder) 1 applic TOP BID [facility] Last Admin: 10/22/16 17:47 Dose: 1 applic Ondansetron HCl (Zofran Inj) 4 mg IVP Q6 PRN PRN Reason: Nausea/Vomiting Last Admin: 09/19/16 10:26 Dose: 4 mg Pantoprazole Sodium (Protonix Ec Tab) 40 mg PO DAILY [facility] Last Admin: 10/22/16 08:35 Dose: 40 mg Phenylephrine HCl (Dagoberto-Synephrine 0.5% Nasal [place]) 1 spry ALLAN Q4 PRN PRN Reason: Nasal congestion Sevelamer HCl (Renagel) 1,600 mg PO TID [facility] Last Admin: 10/22/16 17:46 Dose: 1,600 mg Topiramate (Topamax) 50 mg PO BID [facility] Last Admin: 10/22/16 08:36 Dose: 50 mg Vitamin B Complex/Vit C/Folic Acid (Nephro-Ajay) 1 tab PO DAILY [facility] Last Admin: 10/22/16 08:36 Dose: 1 tab - Labs Labs: 10/21/16 13:00 10/21/16 13:00 PT 17.6 Seconds (9.8-13.1) H 10/15/16 07:00 INR 1.5 (0.9-1.2) H 10/15/16 07:00 APTT 36.6 Seconds (25.6-37.1) 10/15/16 07:00 Assessment and Plan (1) Diabetes Status: Chronic (2) ESRD (end stage renal disease) Status: Chronic (3) Cellulitis of leg Status: Chronic (4) Hyperlipidemia Status: Chronic (5) Back pain Status: Acute (6) Bacteremia due to Gram-negative bacteria Status: Acute (7) Diabetes mellitus type 2 with peripheral artery disease Status: Acute (8) PVD (peripheral vascular disease) Status: Acute (9) Osteomyelitis of right foot Status: Acute (10) Fungal infection right foot Status: Acute
--- NOTE | 2016-10-23 07:51 | CP.PCM.PN ---
Subjective - Date & Time of Evaluation Date of Evaluation: 10/23/16 Time of Evaluation: 07:00 - Subjective Subjective: This is a vascular surgery progress note for Dr. Mccormack: 46 y/o female patient 8 days s/p I&D of Right BKA stump (I&D 10/15/16, BKA 2016) was seen at bedside this morning. Wound VAC appears intact, functioning @ 75 mmHg. Patient reports that there was a small leakage of blood from the wound VAC last night and a nurse reinforced it with Kerlix. Patient denies of any pain /N/V/F/C or SOB today. . Objective - Vital Signs/Intake and Output Vital Signs (last 24 hours): Temp Pulse Resp BP Pulse Ox 97.6 F 114 H 18 132/73 95 10/23/16 07:27 10/23/16 07:27 10/23/16 07:27 10/23/16 07:27 10/23/16 07:27 - Medications Medications: Current Medications Acetaminophen (Tylenol 325mg Tab) 650 mg PO Q4 PRN PRN Reason: Fever >100.4 F Last Admin: 10/02/16 16:27 Dose: 650 mg Acetaminophen (Tylenol 325mg Tab) 650 mg PO Q4 PRN PRN Reason: Pain, moderate (4-7) Last Admin: 09/16/16 22:34 Dose: 650 mg Albuterol Sulfate (Albuterol 0.083% Inhal Barbie (2.5 Mg/3 Ml) Ud) 2.5 mg INH RQ4 PRN PRN Reason: Shortness of Breath Albuterol/Ipratropium (Duoneb 3 Mg/0.5 Mg (3 Ml) Ud) 3 ml INH RQ4 PRN PRN Reason: Shortness of Breath Apixaban (Eliquis) 5 mg PO BID [facility] PRN Reason: Protocol Last Admin: 10/22/16 17:48 Dose: 5 mg Aspirin (Ecotrin) 81 mg PO DAILY [facility] Last Admin: 10/22/16 08:36 Dose: 81 mg Atorvastatin Calcium (Lipitor) 40 mg PO DAILY [facility] Last Admin: 10/22/16 08:35 Dose: 40 mg Benzonatate (Tessalon Perles) 200 mg PO TID PRN PRN Reason: Cough Last Admin: 10/02/16 14:07 Dose: 200 mg Cinacalcet (Sensipar) 30 mg PO DAILY [facility] Last Admin: 10/22/16 08:36 Dose: 30 mg Diphenhydramine HCl (Benadryl) 25 mg PO Q6 PRN PRN Reason: Itching / Pruritus Epoetin Tha (Procrit) 20,000 unit IV MWF [facility] Last Admin: 10/21/16 21:00 Dose: 20,000 unit Ergocalciferol (Drisdol 50,000 Intl Units Cap) 1 cap PO Q7D [facility] Stop: 11/06/16 11:16 Last Admin: 10/16/16 11:25 Dose: 1 cap Fluconazole (Diflucan) 100 mg PO DAILY [facility] Last Admin: 10/22/16 08:36 Dose: 100 mg Gabapentin (Neurontin) 300 mg PO TID [facility] Last Admin: 10/22/16 17:47 Dose: 300 mg Hydrocortisone (Anusol-Hc) 1 applic NC BID [facility] Last Admin: 10/22/16 17:48 Dose: Not Given Hydromorphone HCl (Dilaudid) 1 mg IVP Q3H PRN PRN Reason: Pain, severe (8-10) Last Admin: 10/23/16 05:35 Dose: 1 mg Amikacin Sulfate 250 mg/ (Sodium Chloride) 101 mls @ 100.609 mls/hr IVPB [facility] [place] Last Admin: 10/21/16 08:21 Dose: 100.609 mls/hr Meropenem 500 mg/ Sodium (Chloride) 100 mls @ 100 mls/hr IVPB DAILY@0100 [facility] Last Admin: 10/23/16 00:04 Dose: 100 mls/hr Piperacillin Sod/Tazobactam (Sod 2.25 gm/ Sodium Chloride) 100 mls @ 100 mls/ hr IVPB Q12@0600,1800 [facility] Last Admin: 10/23/16 05:27 Dose: 100 mls/hr Sodium Chloride (Sodium Chloride 0.9%) 1,000 mls @ 10 mls/hr IV .Q24H [facility] Last Admin: 10/22/16 17:47 Dose: 10 mls/hr Insulin Detemir (Levemir) 30 units SC HS [facility] Last Admin: 10/22/16 21:16 Dose: 30 units Insulin Human Lispro (Humalog) 8 units SC AC [facility] Last Admin: 10/22/16 17:48 Dose: 8 units Lidocaine (Lidoderm) 1 ea TD DAILY [facility] Last Admin: 10/22/16 08:36 Dose: 1 ea Linezolid (Zyvox) 600 mg PO Q12 [facility] Last Admin: 10/22/16 21:16 Dose: 600 mg Nystatin (Nystop Topical Powder) 1 applic TOP BID [facility] Last Admin: 10/22/16 17:47 Dose: 1 applic Ondansetron HCl (Zofran Inj) 4 mg IVP Q6 PRN PRN Reason: Nausea/Vomiting Last Admin: 09/19/16 10:26 Dose: 4 mg Pantoprazole Sodium (Protonix Ec Tab) 40 mg PO DAILY [facility] Last Admin: 10/22/16 08:35 Dose: 40 mg Phenylephrine HCl (Dagoberto-Synephrine 0.5% Nasal [place]) 1 spry ALLAN Q4 PRN PRN Reason: Nasal congestion Sevelamer HCl (Renagel) 1,600 mg PO TID [facility] Last Admin: 10/22/16 17:46 Dose: 1,600 mg Topiramate (Topamax) 50 mg PO BID [facility] Last Admin: 10/22/16 08:36 Dose: 50 mg Vitamin B Complex/Vit C/Folic Acid (Nephro-Ajay) 1 tab PO DAILY [facility] Last Admin: 10/22/16 08:36 Dose: 1 tab - Labs Labs: 10/21/16 13:00 10/21/16 13:00 PT 17.6 Seconds (9.8-13.1) H 10/15/16 07:00 INR 1.5 (0.9-1.2) H 10/15/16 07:00 APTT 36.6 Seconds (25.6-37.1) 10/15/16 07:00 - Constitutional Appears: Well, Non-toxic, No Acute Distress - Extremities Exam Additional comments: Dressing to Right knee Wound VAC functioning @ 75 mmHg - Neurological Exam Neurological Exam: Alert, Awake, Oriented x3 - Psychiatric Exam Psychiatric exam: Normal Affect, Normal Mood - Skin Skin Exam: Normal Color, Warm Assessment and Plan - Assessment and Plan (Free Text) Assessment: 46 F s/p Incision and drainage, wound VAC placement of Right BKA stump POD# 8 ( Right BKA 10/01/16) Plan: - Wound VAC functioning 75mmHg - Continue pain control prn - New WCX (10/21/16): No growth Preliminary - Continue PT/OT - s/p Vaginal D&C
[2016-10-23] MEDS: Hydrocortisone 2.5% (Rectal) CREAM PR SCH ×2 (08:36→17:54)
[2016-10-23] MEDS: Insulin Lispro (humaLOG) 100 Units/ml Inj SC SCH ×3 (08:37→17:38)
[2016-10-23] MEDS: Lidocaine 5% Patch TD SCH (08:38)
[2016-10-23] MEDS: Multivitamin Vitamin B Complex (Nephro-Vite) Tab PO SCH (08:38)
[2016-10-23] MEDS: Pantoprazole 40 mg EC Tab PO SCH (08:40)
[2016-10-23] MEDS: Epoetin Alfa 20000 UNIT/ML Inj IV SCH (08:45)
--- NOTE | 2016-10-23 11:07 | CP.PCM.PN ---
Subjective - Date & Time of Evaluation Date of Evaluation: 10/23/16 Time of Evaluation: 11:04 - Subjective Subjective: Patient is comfortable, receiving hemodialysis. The wound vac is not working properly as there is leakage of serous fluid from the BK surgical site. Dry dressing has been applied to soak up the drainage. I contacted Ben Steven, wound care nurse, so he can address this problem and hopefully recreate the seal. Patient continues on iv meropenem, amikacin, Zosyn and po Zyvox and Diflucan. Wound culture done on 10/21 is negative so far. CBC and BMP to be drawn by dialysis nurse. No excessive bleeding - continues on Eliquis and ASA. No seizures. No fevers. No dyspnea or pain. Objective - Vital Signs/Intake and Output Vital Signs (last 24 hours): Temp Pulse Resp BP Pulse Ox 97.6 F 114 H 18 132/73 95 10/23/16 07:27 10/23/16 07:27 10/23/16 07:27 10/23/16 07:27 10/23/16 07:27 - Medications Medications: Current Medications Acetaminophen (Tylenol 325mg Tab) 650 mg PO Q4 PRN PRN Reason: Fever >100.4 F Last Admin: 10/02/16 16:27 Dose: 650 mg Acetaminophen (Tylenol 325mg Tab) 650 mg PO Q4 PRN PRN Reason: Pain, moderate (4-7) Last Admin: 09/16/16 22:34 Dose: 650 mg Albuterol Sulfate (Albuterol 0.083% Inhal Barbie (2.5 Mg/3 Ml) Ud) 2.5 mg INH RQ4 PRN PRN Reason: Shortness of Breath Albuterol/Ipratropium (Duoneb 3 Mg/0.5 Mg (3 Ml) Ud) 3 ml INH RQ4 PRN PRN Reason: Shortness of Breath Apixaban (Eliquis) 5 mg PO BID [facility] PRN Reason: Protocol Last Admin: 10/23/16 08:35 Dose: 5 mg Aspirin (Ecotrin) 81 mg PO DAILY [facility] Last Admin: 10/23/16 08:38 Dose: 81 mg Atorvastatin Calcium (Lipitor) 40 mg PO DAILY [facility] Last Admin: 10/23/16 08:37 Dose: 40 mg Benzonatate (Tessalon Perles) 200 mg PO TID PRN PRN Reason: Cough Last Admin: 10/02/16 14:07 Dose: 200 mg Cinacalcet (Sensipar) 30 mg PO DAILY [facility] Last Admin: 10/23/16 08:35 Dose: 30 mg Diphenhydramine HCl (Benadryl) 25 mg PO Q6 PRN PRN Reason: Itching / Pruritus Epoetin Tha (Procrit) 20,000 unit IV [facility] Last Admin: 10/23/16 08:45 Dose: 20,000 unit Ergocalciferol (Drisdol 50,000 Intl Units Cap) 1 cap PO Q7D [facility] Stop: 11/06/16 11:16 Last Admin: 10/16/16 11:25 Dose: 1 cap Fluconazole (Diflucan) 100 mg PO DAILY [facility] Last Admin: 10/23/16 08:37 Dose: 100 mg Gabapentin (Neurontin) 300 mg PO TID [facility] Last Admin: 10/23/16 08:36 Dose: 300 mg Hydrocortisone (Anusol-Hc) 1 applic [place] BID [facility] Last Admin: 10/23/16 08:36 Dose: Not Given Hydromorphone HCl (Dilaudid) 1 mg IVP Q3H PRN PRN Reason: Pain, severe (8-10) Last Admin: 10/23/16 08:59 Dose: 1 mg Amikacin Sulfate 250 mg/ (Sodium Chloride) 101 mls @ 100.609 mls/hr IVPB [facility] Last Admin: 10/23/16 08:35 Dose: 100.609 mls/hr Meropenem 500 mg/ Sodium (Chloride) 100 mls @ 100 mls/hr IVPB DAILY@0100 [facility] Last Admin: 10/23/16 00:04 Dose: 100 mls/hr Piperacillin Sod/Tazobactam (Sod 2.25 gm/ Sodium Chloride) 100 mls @ 100 mls/ hr IVPB Q12@0600,1800 [facility] Last Admin: 10/23/16 05:27 Dose: 100 mls/hr Sodium Chloride (Sodium Chloride 0.9%) 1,000 mls @ 10 mls/hr IV .Q24H [facility] Last Admin: 10/22/16 17:47 Dose: 10 mls/hr Insulin Detemir (Levemir) 30 units SC [facility] Last Admin: 10/22/16 21:16 Dose: 30 units Insulin Human Lispro (Humalog) 8 units SC AC [facility] Last Admin: 10/23/16 08:37 Dose: 8 units Lidocaine (Lidoderm) 1 ea TD DAILY [facility] Last Admin: 10/23/16 08:38 Dose: 1 ea Linezolid (Zyvox) 600 mg PO Q12 [facility] Last Admin: 10/23/16 08:36 Dose: 600 mg Nystatin (Nystop Topical Powder) 1 applic TOP BID [facility] Last Admin: 10/23/16 08:34 Dose: 1 applic Ondansetron HCl (Zofran Inj) 4 mg IVP Q6 PRN PRN Reason: Nausea/Vomiting Last Admin: 09/19/16 10:26 Dose: 4 mg Pantoprazole Sodium (Protonix Ec Tab) 40 mg PO DAILY [facility] Last Admin: 10/23/16 08:40 Dose: 40 mg Phenylephrine HCl (Dagoberto-Synephrine 0.5% Nasal [place]) 1 spry ALLAN Q4 PRN PRN Reason: Nasal congestion Sevelamer HCl (Renagel) 1,600 mg PO TID [facility] Last Admin: 10/23/16 08:36 Dose: 1,600 mg Topiramate (Topamax) 50 mg PO BID [facility] Last Admin: 10/23/16 08:36 Dose: 50 mg Vitamin B Complex/Vit C/Folic Acid (Nephro-Ajay) 1 tab PO DAILY [facility] Last Admin: 10/23/16 08:38 Dose: 1 tab - Labs Labs: 10/21/16 13:00 10/21/16 13:00 PT 17.6 Seconds (9.8-13.1) H 10/15/16 07:00 INR 1.5 (0.9-1.2) H 10/15/16 07:00 APTT 36.6 Seconds (25.6-37.1) 10/15/16 07:00 - Constitutional Appears: No Acute Distress - Head Exam Head Exam: NORMAL INSPECTION - ENT Exam ENT Exam: Mucous Membranes Moist - Neck Exam Neck Exam: Normal Inspection - Respiratory Exam Respiratory Exam: Clear to Ausculation Bilateral, NORMAL BREATHING PATTERN - Cardiovascular Exam Cardiovascular Exam: REGULAR RHYTHM, +S1, +S2 - GI/Abdominal Exam GI & Abdominal Exam: Soft - Extremities Exam Additional comments: Wound vac is leaking - serous drainage. Will need to be resealed. - Neurological Exam Neurological Exam: Alert, Awake - Psychiatric Exam Psychiatric exam: Normal Affect, Normal Mood Assessment and Plan (1) Status post below knee amputation of right lower extremity Status: Acute (2) Osteomyelitis of ankle or foot Status: Acute (3) ESRD (end stage renal disease) on dialysis Status: Chronic (4) DM type 2 (diabetes mellitus, type 2) Status: Chronic (5) Coagulopathy Status: Chronic (6) Anemia, blood loss Status: Acute (7) Peripheral arterial occlusive disease Status: Chronic - Assessment and Plan (Free Text) Plan: Discussed with nursing - wound vac leakage to be addressed. Await blood work. Continue same Tx and Rx.
[2016-10-23] MEDS: Ergocalciferol 50,000 Intl Units Cap PO SCH (12:19)
--- NOTE | 2016-10-23 12:58 | CP.PCM.PN ---
Subjective - Date & Time of Evaluation Date of Evaluation: 10/23/16 Time of Evaluation: 12:56 - Subjective Subjective: Patient was seen during dialysis Patient awake and conscious appeared to be comfortable Vital sign noted to be stable blood pressure around 1 42 x 86 now Physical exam Chest clear no rales No rubs Abdomen soft Extremity no changes but no edema above the amputation the right stump is covered his dressing Impression and plan Continue hemodialysis as scheduled Ultrafiltration 4000 mL Patient about to finish dialysis and another 45 minutes or so Potassium bath 2 mEq And sodium bath 138 Patient receiving 5 antibiotics as noted by the primary team Objective - Vital Signs/Intake and Output Vital Signs (last 24 hours): Temp Pulse Resp BP Pulse Ox 97.6 F 114 H 18 132/73 95 10/23/16 07:27 10/23/16 07:27 10/23/16 07:27 10/23/16 07:27 10/23/16 07:27 - Medications Medications: Current Medications Acetaminophen (Tylenol 325mg Tab) 650 mg PO Q4 PRN PRN Reason: Fever >100.4 F Last Admin: 10/02/16 16:27 Dose: 650 mg Acetaminophen (Tylenol 325mg Tab) 650 mg PO Q4 PRN PRN Reason: Pain, moderate (4-7) Last Admin: 09/16/16 22:34 Dose: 650 mg Albuterol Sulfate (Albuterol 0.083% Inhal Barbie (2.5 Mg/3 Ml) Ud) 2.5 mg INH RQ4 PRN PRN Reason: Shortness of Breath Albuterol/Ipratropium (Duoneb 3 Mg/0.5 Mg (3 Ml) Ud) 3 ml INH RQ4 PRN PRN Reason: Shortness of Breath Apixaban (Eliquis) 5 mg PO BID [facility] PRN Reason: Protocol Last Admin: 10/23/16 08:35 Dose: 5 mg Aspirin (Ecotrin) 81 mg PO DAILY [facility] Last Admin: 10/23/16 08:38 Dose: 81 mg Atorvastatin Calcium (Lipitor) 40 mg PO DAILY [facility] Last Admin: 10/23/16 08:37 Dose: 40 mg Benzonatate (Tessalon Perles) 200 mg PO TID PRN PRN Reason: Cough Last Admin: 10/02/16 14:07 Dose: 200 mg Cinacalcet (Sensipar) 30 mg PO DAILY [facility] Last Admin: 10/23/16 08:35 Dose: 30 mg Diphenhydramine HCl (Benadryl) 25 mg PO Q6 PRN PRN Reason: Itching / Pruritus Epoetin Tha (Procrit) 20,000 unit IV MWF [facility] Last Admin: 10/23/16 08:45 Dose: 20,000 unit Ergocalciferol (Drisdol 50,000 Intl Units Cap) 1 cap PO Q7D [facility] Stop: 11/06/16 11:16 Last Admin: 10/23/16 12:19 Dose: 1 cap Fluconazole (Diflucan) 100 mg PO DAILY [facility] Last Admin: 10/23/16 08:37 Dose: 100 mg Gabapentin (Neurontin) 300 mg PO TID [facility] Last Admin: 10/23/16 12:18 Dose: 300 mg Hydrocortisone (Anusol-Hc) 1 applic [place] BID [facility] Last Admin: 10/23/16 08:36 Dose: Not Given Hydromorphone HCl (Dilaudid) 1 mg IVP Q3H PRN PRN Reason: Pain, severe (8-10) Last Admin: 10/23/16 08:59 Dose: 1 mg Amikacin Sulfate 250 mg/ (Sodium Chloride) 101 mls @ 100.609 mls/hr IVPB MWF [facility] Last Admin: 10/23/16 08:35 Dose: 100.609 mls/hr Meropenem 500 mg/ Sodium (Chloride) 100 mls @ 100 mls/hr IVPB DAILY@0100 [facility] Last Admin: 10/23/16 00:04 Dose: 100 mls/hr Piperacillin Sod/Tazobactam (Sod 2.25 gm/ Sodium Chloride) 100 mls @ 100 mls/ hr IVPB Q12@0600,1800 [facility] Last Admin: 10/23/16 05:27 Dose: 100 mls/hr Sodium Chloride (Sodium Chloride 0.9%) 1,000 mls @ 10 mls/hr IV .Q24H [facility] Last Admin: 10/22/16 17:47 Dose: 10 mls/hr Insulin Detemir (Levemir) 30 units SC HS [facility] Last Admin: 10/22/16 21:16 Dose: 30 units Insulin Human Lispro (Humalog) 8 units SC AC [facility] Last Admin: 10/23/16 12:19 Dose: 8 units Lidocaine (Lidoderm) 1 ea TD DAILY [facility] Last Admin: 10/23/16 08:38 Dose: 1 ea Linezolid (Zyvox) 600 mg PO Q12 [facility] Last Admin: 10/23/16 08:36 Dose: 600 mg Nystatin (Nystop Topical Powder) 1 applic TOP BID [facility] Last Admin: 10/23/16 08:34 Dose: 1 applic Ondansetron HCl (Zofran Inj) 4 mg IVP Q6 PRN PRN Reason: Nausea/Vomiting Last Admin: 09/19/16 10:26 Dose: 4 mg Pantoprazole Sodium (Protonix Ec Tab) 40 mg PO DAILY [facility] Last Admin: 10/23/16 08:40 Dose: 40 mg Phenylephrine HCl (Dagoberto-Synephrine 0.5% Nasal [place]) 1 spry ALLAN Q4 PRN PRN Reason: Nasal congestion Sevelamer HCl (Renagel) 1,600 mg PO TID [facility] Last Admin: 10/23/16 12:18 Dose: 1,600 mg Topiramate (Topamax) 50 mg PO BID [facility] Last Admin: 10/23/16 08:36 Dose: 50 mg Vitamin B Complex/Vit C/Folic Acid (Nephro-Ajay) 1 tab PO DAILY [facility] Last Admin: 10/23/16 08:38 Dose: 1 tab - Labs Labs: 10/21/16 13:00 10/21/16 13:00 PT 17.6 Seconds (9.8-13.1) H 10/15/16 07:00 INR 1.5 (0.9-1.2) H 10/15/16 07:00 APTT 36.6 Seconds (25.6-37.1) 10/15/16 07:00 Assessment and Plan (1) ESRD (end stage renal disease) Status: Chronic (2) Cellulitis of leg Status: Chronic
[2016-10-23 13:24] LABS: HEMATOCRIT 32.1 % (34.0-47.0); MEAN CELL VOLUME 92.7 fl (81.0-99.0); MEAN CORPUSCULAR HEMOGLOBIN 29.9 pg (27.0-31.0); MEAN CORPUSCULAR HGB CONC 32.2 g/dL (33.0-37.0); RED CELL DISTRIBUTION WIDTH 19.5 % (11.5-14.5)
[2016-10-23 13:33] LABS: CALCIUM 9.2 mg/dL (8.4-10.2); POTASSIUM 3.5 MMOL/L (3.6-5.0)
[2016-10-23] MEDS: Sodium Chloride 0.9% 1,000 ML IV SCH (17:37)
[2016-10-23] MEDS: Insulin Detemir 100 Units/ml Inj SC SCH (21:00)
--- NOTE | 2016-10-23 23:38 | CP.PCM.PN ---
Subjective - Date & Time of Evaluation Date of Evaluation: 10/23/16 Time of Evaluation: 21:00 - Subjective Subjective: The wound vac is not working properly. Patient received today a new session of Hemodialysis. She is doing better clinically. There is no Seizures on a low dose of Topamax 50 mg Q12 hrs. Objective - Vital Signs/Intake and Output Vital Signs (last 24 hours): Temp Pulse Resp BP Pulse Ox 98.1 F 111 H 20 81/52 L 94 L 10/23/16 16:01 10/23/16 16:01 10/23/16 16:01 10/23/16 16:01 10/23/16 16:01 - Medications Medications: Current Medications Acetaminophen (Tylenol 325mg Tab) 650 mg PO Q4 PRN PRN Reason: Fever >100.4 F Last Admin: 10/02/16 16:27 Dose: 650 mg Acetaminophen (Tylenol 325mg Tab) 650 mg PO Q4 PRN PRN Reason: Pain, moderate (4-7) Last Admin: 09/16/16 22:34 Dose: 650 mg Albuterol Sulfate (Albuterol 0.083% Inhal Barbie (2.5 Mg/3 Ml) Ud) 2.5 mg INH RQ4 PRN PRN Reason: Shortness of Breath Albuterol/Ipratropium (Duoneb 3 Mg/0.5 Mg (3 Ml) Ud) 3 ml INH RQ4 PRN PRN Reason: Shortness of Breath Apixaban (Eliquis) 5 mg PO BID [facility] PRN Reason: Protocol Last Admin: 10/23/16 17:37 Dose: 5 mg Aspirin (Ecotrin) 81 mg PO DAILY [facility] Last Admin: 10/23/16 08:38 Dose: 81 mg Atorvastatin Calcium (Lipitor) 40 mg PO DAILY [facility] Last Admin: 10/23/16 08:37 Dose: 40 mg Benzonatate (Tessalon Perles) 200 mg PO TID PRN PRN Reason: Cough Last Admin: 10/02/16 14:07 Dose: 200 mg Cinacalcet (Sensipar) 30 mg PO DAILY [facility] Last Admin: 10/23/16 08:35 Dose: 30 mg Diphenhydramine HCl (Benadryl) 25 mg PO Q6 PRN PRN Reason: Itching / Pruritus Epoetin Tha (Procrit) 20,000 unit IV MWF [facility] Last Admin: 10/23/16 08:45 Dose: 20,000 unit Ergocalciferol (Drisdol 50,000 Intl Units Cap) 1 cap PO Q7D [facility] Stop: 11/06/16 11:16 Last Admin: 10/23/16 12:19 Dose: 1 cap Fluconazole (Diflucan) 100 mg PO DAILY [facility] Last Admin: 10/23/16 08:37 Dose: 100 mg Gabapentin (Neurontin) 300 mg PO TID [facility] Last Admin: 10/23/16 17:37 Dose: 300 mg Hydrocortisone (Anusol-Hc) 1 applic [place] BID [facility] Last Admin: 10/23/16 17:54 Dose: Not Given Hydromorphone HCl (Dilaudid) 1 mg IVP Q3H PRN PRN Reason: Pain, severe (8-10) Last Admin: 10/23/16 21:05 Dose: 1 mg Amikacin Sulfate 250 mg/ (Sodium Chloride) 101 mls @ 100.609 mls/hr [facility] Last Admin: 10/23/16 08:35 Dose: 100.609 mls/hr Meropenem 500 mg/ Sodium (Chloride) 100 mls @ 100 mls/hr IVPB DAILY@0100 [facility] Last Admin: 10/23/16 00:04 Dose: 100 mls/hr Piperacillin Sod/Tazobactam (Sod 2.25 gm/ Sodium Chloride) 100 mls @ 100 mls/ hr IVPB Q12@0600,1800 [facility] Last Admin: 10/23/16 17:35 Dose: 100 mls/hr Sodium Chloride (Sodium Chloride 0.9%) 1,000 mls @ 10 mls/hr IV .Q24H [facility] Last Admin: 10/23/16 17:37 Dose: Not Given Insulin Detemir (Levemir) 30 units SC HS [facility] Last Admin: 10/23/16 21:00 Dose: 30 units Insulin Human Lispro (Humalog) 8 units SC AC [facility] Last Admin: 10/23/16 17:38 Dose: 8 units Lidocaine (Lidoderm) 1 ea TD DAILY [facility] Last Admin: 10/23/16 08:38 Dose: 1 ea Linezolid (Zyvox) 600 mg PO Q12 [facility] Last Admin: 10/23/16 20:59 Dose: 600 mg Nystatin (Nystop Topical Powder) 1 applic TOP BID [facility] Last Admin: 10/23/16 17:37 Dose: 1 applic Ondansetron HCl (Zofran Inj) 4 mg IVP Q6 PRN PRN Reason: Nausea/Vomiting Last Admin: 09/19/16 10:26 Dose: 4 mg Pantoprazole Sodium (Protonix Ec Tab) 40 mg PO DAILY [facility] Last Admin: 10/23/16 08:40 Dose: 40 mg Phenylephrine HCl (Dagoberto-Synephrine 0.5% Nasal [place]) 1 spry ALLAN Q4 PRN PRN Reason: Nasal congestion Sevelamer HCl (Renagel) 1,600 mg PO TID [facility] Last Admin: 10/23/16 17:36 Dose: 1,600 mg Topiramate (Topamax) 50 mg PO BID [facility] Last Admin: 10/23/16 17:36 Dose: 50 mg Vitamin B Complex/Vit C/Folic Acid (Nephro-Ajay) 1 tab PO DAILY [facility] Last Admin: 10/23/16 08:38 Dose: 1 tab - Labs Labs: 10/23/16 13:00 10/23/16 13:00 PT 17.6 Seconds (9.8-13.1) H 10/15/16 07:00 INR 1.5 (0.9-1.2) H 10/15/16 07:00 APTT 36.6 Seconds (25.6-37.1) 10/15/16 07:00 Assessment and Plan (1) Diabetes Status: Chronic (2) ESRD (end stage renal disease) Status: Chronic (3) Cellulitis of leg Status: Chronic (4) Hyperlipidemia Status: Chronic (5) Back pain Status: Acute (6) Bacteremia due to Gram-negative bacteria Status: Acute (7) Diabetes mellitus type 2 with peripheral artery disease Status: Acute (8) PVD (peripheral vascular disease) Status: Acute (9) Osteomyelitis of right foot Status: Acute (10) Fungal infection right foot Status: Acute
[2016-10-24 00:05] LABS: AMIKACIN 6.4 mg/L (see note)
--- NOTE | 2016-10-24 08:08 | CP.PCM.PN ---
Subjective - Date & Time of Evaluation Date of Evaluation: 10/24/16 Time of Evaluation: 08:07 - Subjective Subjective: Pt is in good spirits. She does not c/om pain. the surgical wound shows coagulase negative staph for which she is covered She has no more vaginal bleeding Hgb is 10.2gms. Objective - Vital Signs/Intake and Output Vital Signs (last 24 hours): Temp Pulse Resp BP Pulse Ox 97.5 F L 105 H 19 88/43 L 96 10/24/16 00:32 10/24/16 00:32 10/24/16 00:32 10/24/16 00:32 10/24/16 00:32 - Medications Medications: Current Medications Acetaminophen (Tylenol 325mg Tab) 650 mg PO Q4 PRN PRN Reason: Fever >100.4 F Last Admin: 10/02/16 16:27 Dose: 650 mg Acetaminophen (Tylenol 325mg Tab) 650 mg PO Q4 PRN PRN Reason: Pain, moderate (4-7) Last Admin: 09/16/16 22:34 Dose: 650 mg Albuterol Sulfate (Albuterol 0.083% Inhal Barbie (2.5 Mg/3 Ml) Ud) 2.5 mg INH RQ4 PRN PRN Reason: Shortness of Breath Albuterol/Ipratropium (Duoneb 3 Mg/0.5 Mg (3 Ml) Ud) 3 ml INH RQ4 PRN PRN Reason: Shortness of Breath Apixaban (Eliquis) 5 mg PO BID [facility] PRN Reason: Protocol Last Admin: 10/23/16 17:37 Dose: 5 mg Aspirin (Ecotrin) 81 mg PO DAILY [facility] Last Admin: 10/23/16 08:38 Dose: 81 mg Atorvastatin Calcium (Lipitor) 40 mg PO DAILY [facility] Last Admin: 10/23/16 08:37 Dose: 40 mg Benzonatate (Tessalon Perles) 200 mg PO TID PRN PRN Reason: Cough Last Admin: 10/02/16 14:07 Dose: 200 mg Cinacalcet (Sensipar) 30 mg PO DAILY [facility] Last Admin: 10/23/16 08:35 Dose: 30 mg Diphenhydramine HCl (Benadryl) 25 mg PO Q6 PRN PRN Reason: Itching / Pruritus Epoetin Tha (Procrit) 20,000 unit IV MWF [facility] Last Admin: 10/23/16 08:45 Dose: 20,000 unit Ergocalciferol (Drisdol 50,000 Intl Units Cap) 1 cap PO Q7D [facility] Stop: 11/06/16 11:16 Last Admin: 10/23/16 12:19 Dose: 1 cap Fluconazole (Diflucan) 100 mg PO DAILY [facility] Last Admin: 10/23/16 08:37 Dose: 100 mg Gabapentin (Neurontin) 300 mg PO TID [facility] Last Admin: 10/23/16 17:37 Dose: 300 mg Hydrocortisone (Anusol-Hc) 1 applic [place] BID [facility] Last Admin: 10/23/16 17:54 Dose: Not Given Hydromorphone HCl (Dilaudid) 1 mg IVP Q3H PRN PRN Reason: Pain, severe (8-10) Last Admin: 10/24/16 03:34 Dose: 1 mg Amikacin Sulfate 250 mg/ (Sodium Chloride) 101 mls @ 100.609 mls[facility] Last Admin: 10/23/16 08:35 Dose: 100.609 mls/hr Meropenem 500 mg/ Sodium (Chloride) 100 mls @ 100 mls/hr IVPB DAILY@0100 [facility] Last Admin: 10/23/16 23:58 Dose: 100 mls/hr Piperacillin Sod/Tazobactam (Sod 2.25 gm/ Sodium Chloride) 100 mls @ 100 mls/ hr IVPB Q12@0600,1800 [facility] Last Admin: 10/24/16 05:52 Dose: 100 mls/hr Sodium Chloride (Sodium Chloride 0.9%) 1,000 mls @ 10 mls/hr IV .Q24H [facility] Last Admin: 10/23/16 17:37 Dose: Not Given Insulin Detemir (Levemir) 30 units SC HS [facility] Last Admin: 10/23/16 21:00 Dose: 30 units Insulin Human Lispro (Humalog) 8 units SC AC [facility] Last Admin: 10/23/16 17:38 Dose: 8 units Lidocaine (Lidoderm) 1 ea TD DAILY [facility] Last Admin: 10/23/16 08:38 Dose: 1 ea Linezolid (Zyvox) 600 mg PO Q12 [facility] Last Admin: 10/23/16 20:59 Dose: 600 mg Nystatin (Nystop Topical Powder) 1 applic TOP BID [facility] Last Admin: 10/23/16 17:37 Dose: 1 applic Ondansetron HCl (Zofran Inj) 4 mg IVP Q6 PRN PRN Reason: Nausea/Vomiting Last Admin: 09/19/16 10:26 Dose: 4 mg Pantoprazole Sodium (Protonix Ec Tab) 40 mg PO DAILY [facility] Last Admin: 10/23/16 08:40 Dose: 40 mg Phenylephrine HCl (Dagoberto-Synephrine 0.5% Nasal [place]) 1 spry ALLAN Q4 PRN PRN Reason: Nasal congestion Sevelamer HCl (Renagel) 1,600 mg PO TID [facility] Last Admin: 10/23/16 17:36 Dose: 1,600 mg Topiramate (Topamax) 50 mg PO BID [facility] Last Admin: 10/23/16 17:36 Dose: 50 mg Vitamin B Complex/Vit C/Folic Acid (Nephro-Ajay) 1 tab PO DAILY [facility] Last Admin: 10/23/16 08:38 Dose: 1 tab - Labs Labs: 10/23/16 13:00 10/23/16 13:00 PT 17.6 Seconds (9.8-13.1) H 10/15/16 07:00 INR 1.5 (0.9-1.2) H 10/15/16 07:00 APTT 36.6 Seconds (25.6-37.1) 10/15/16 07:00
--- NOTE | 2016-10-24 08:33 | PN ---
DATE: 10/23/2016 ENDOCRINOLOGY FOLLOWUP This is a 46-year-old female with recent uncontrolled type 2 insulin-requiring diabetes, now being fo llowed closely for metabolic management. Her glycemic values are much improved at this time, especia lly postoperatively following a recent right below-knee amputation procedure as noted. Her glucose v alues have ranged from 97-102 mg/dL. The latest chemistries include a BUN of 14, sodium 143, potassi um 3.5, chloride 102, CO2 of 29, glucose 97 and creatinine 2.5. So, at this time, we will continue t he same basal and bolus insulin regimen as given with Levemir given as 30 units subQ at bedtime daily and Humalog given as 8 units subQ t.i.d. before meals as ordered. We will titrate incrementally as indicated to optimize metabolic control. We will follow. Irene Ambrose MD cc: [id number] TT: 10/23/2016 16:44:17 Confirmation # [id number] Dictation # [id number] ravinder
[2016-10-24] MEDS: Hydrocortisone 2.5% (Rectal) CREAM PR SCH ×2 (08:35→16:32)
[2016-10-24] MEDS: Insulin Lispro (humaLOG) 100 Units/ml Inj SC SCH ×3 (08:37→16:35)
[2016-10-24] MEDS: Lidocaine 5% Patch TD SCH (08:40)
[2016-10-24] MEDS: Multivitamin Vitamin B Complex (Nephro-Vite) Tab PO SCH (08:41)
[2016-10-24] MEDS: Pantoprazole 40 mg EC Tab PO SCH (08:42)
--- NOTE | 2016-10-24 09:12 | CP.PCM.PN ---
<Sarah hCanel - Last Filed: 10/24/16 09:21> Subjective - Date & Time of Evaluation Date of Evaluation: 10/24/16 Time of Evaluation: 08:15 - Subjective Subjective: This is a vascular surgery progress note for Dr. 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 Wound VAC was leaking and was reinforced this morning. Wound VAC still functioning at 75 mmHg with collection of 130cc. Dr. Mccormack to stop by and round today. Patient denies of any pain/N/V /F/C or SOB today. . Objective - Vital Signs/Intake and Output Vital Signs (last 24 hours): Temp Pulse Resp BP Pulse Ox 97.6 F 117 H 20 141/75 98 10/24/16 08:18 10/24/16 08:18 10/24/16 08:18 10/24/16 08:18 10/24/16 08:18 - Medications Medications: Current Medications Acetaminophen (Tylenol 325mg Tab) 650 mg PO Q4 PRN PRN Reason: Fever >100.4 F Last Admin: 10/02/16 16:27 Dose: 650 mg Acetaminophen (Tylenol 325mg Tab) 650 mg PO Q4 PRN PRN Reason: Pain, moderate (4-7) Last Admin: 09/16/16 22:34 Dose: 650 mg Albuterol Sulfate (Albuterol 0.083% Inhal Barbie (2.5 Mg/3 Ml) Ud) 2.5 mg INH RQ4 PRN PRN Reason: Shortness of Breath Albuterol/Ipratropium (Duoneb 3 Mg/0.5 Mg (3 Ml) Ud) 3 ml INH RQ4 PRN PRN Reason: Shortness of Breath Apixaban (Eliquis) 5 mg PO BID JAS[facility] PRN Reason: Protocol Last Admin: 10/24/16 08:37 Dose: 5 mg Aspirin (Ecotrin) 81 mg PO DAILY [facility] Last Admin: 10/24/16 08:45 Dose: 81 mg Atorvastatin Calcium (Lipitor) 40 mg PO DAILY [facility] Last Admin: 10/24/16 08:41 Dose: 40 mg Benzonatate (Tessalon Perles) 200 mg PO TID PRN PRN Reason: Cough Last Admin: 10/02/16 14:07 Dose: 200 mg Cinacalcet (Sensipar) 30 mg PO DAILY [facility] Last Admin: 10/24/16 08:43 Dose: 30 mg Diphenhydramine HCl (Benadryl) 25 mg PO Q6 PRN PRN Reason: Itching / Pruritus Epoetin Tha (Procrit) 20,000 unit [place] [facility] [place] Admin: 10/23/16 08:45 Dose: 20,000 unit Ergocalciferol (Drisdol 50,000 Intl Units Cap) 1 cap PO Q7D [facility] Stop: 11/06/16 11:16 Last Admin: 10/23/16 12:19 Dose: 1 cap Fluconazole (Diflucan) 100 mg PO DAILY [facility] Last Admin: 10/24/16 08:36 Dose: 100 mg Gabapentin (Neurontin) 300 mg PO TID [facility] Last Admin: 10/24/16 08:41 Dose: 300 mg Hydrocortisone (Anusol-Hc) 1 applic [place] BID [facility] Last Admin: 10/24/16 08:35 Dose: Not Given Hydromorphone HCl (Dilaudid) 1 mg IVP Q3H PRN PRN Reason: Pain, severe (8-10) Last Admin: 10/24/16 03:34 Dose: 1 mg Amikacin Sulfate 250 mg/ (Sodium Chloride) 101 mls @ 100.609 mls/hr [place]PB [facility] Last Admin: 10/23/16 08:35 Dose: 100.609 mls/hr Meropenem 500 mg/ Sodium (Chloride) 100 mls @ 100 mls/hr IVPB DAILY@0100 [facility] Last Admin: 10/23/16 23:58 Dose: 100 mls/hr Piperacillin Sod/Tazobactam (Sod 2.25 gm/ Sodium Chloride) 100 mls @ 100 mls/ hr IVPB Q12@0600,1800 [facility] Last Admin: 10/24/16 05:52 Dose: 100 mls/hr Sodium Chloride (Sodium Chloride 0.9%) 1,000 mls @ 10 mls/hr IV .Q24H [facility] Last Admin: 10/23/16 17:37 Dose: Not Given Insulin Detemir (Levemir) 30 units SC [facility] Last Admin: 10/23/16 21:00 Dose: 30 units Insulin Human Lispro (Humalog) 8 units SC AC [facility] Last Admin: 10/24/16 08:37 Dose: 8 units Lidocaine (Lidoderm) 1 ea TD DAILY [facility] Last Admin: 10/24/16 08:40 Dose: 1 ea Linezolid (Zyvox) 600 mg PO Q12 [facility] Last Admin: 10/24/16 08:44 Dose: 600 mg Nystatin (Nystop Topical Powder) 1 applic TOP BID [facility] Last Admin: 10/24/16 08:42 Dose: 1 applic Ondansetron HCl (Zofran Inj) 4 mg IVP Q6 PRN PRN Reason: Nausea/Vomiting Last Admin: 09/19/16 10:26 Dose: 4 mg Pantoprazole Sodium (Protonix Ec Tab) 40 mg PO DAILY [facility] Last Admin: 10/24/16 08:42 Dose: 40 mg Phenylephrine HCl (Dagoberto-Synephrine 0.5% Nasal [place]) 1 spry ALLAN Q4 PRN PRN Reason: Nasal congestion Sevelamer HCl (Renagel) 1,600 mg PO TID [facility] Last Admin: 10/24/16 08:43 Dose: 1,600 mg Topiramate (Topamax) 50 mg PO BID [facility] Last Admin: 10/24/16 08:43 Dose: 50 mg Vitamin B Complex/Vit C/Folic Acid (Nephro-Ajay) 1 tab PO DAILY [facility] Last Admin: 10/24/16 08:41 Dose: 1 tab - Labs Labs: 10/23/16 13:00 10/23/16 13:00 PT 17.6 Seconds (9.8-13.1) H 10/15/16 07:00 INR 1.5 (0.9-1.2) H 10/15/16 07:00 APTT 36.6 Seconds (25.6-37.1) 10/15/16 07:00 - Constitutional Appears: Well, Non-toxic, No Acute Distress - Extremities Exam Additional comments: Dressing to Right knee Wound VAC functioning @ 75 mmHg with collection of 130 cc - Neurological Exam Neurological Exam: Alert, Awake, Oriented x3 - Psychiatric Exam Psychiatric exam: Normal Affect, Normal Mood - Skin Skin Exam: Normal Color, Warm Assessment and Plan - Assessment and Plan (Free Text) Assessment: 46 F s/p Incision and drainage, wound VAC placement of Right BKA stump POD# 9 ( Right BKA 10/01/16) Plan: - Wound VAC reinforced, Dr. Mccormack to round later today - Continue pain control prn - New WCX (10/21/16): No growth Preliminary - Continue PT/OT - s/p Vaginal D&C <Raffy Mccormack - Last Filed: 10/24/16 14:26> Subjective - Subjective Subjective: Patient seen and examined. Right BKA stump VAC changed at the bedside. Overall, wound appears quite well with no signs of infection, gangrene or tissue necrosis. There is adequate formation of granulation tissue. Patient seems to be processing quite well overall. Her pain is well controlled. WBC is normal. At this point we'll continue VAC and local wound care with VAC change planned for Friday next week. Objective - Vital Signs/Intake and Output Vital Signs (last 24 hours): Temp Pulse Resp BP Pulse Ox 97.6 F 117 H 20 141/75 98 10/24/16 08:18 10/24/16 08:18 10/24/16 08:18 10/24/16 08:18 10/24/16 08:18 - Medications Medications: Current Medications Acetaminophen (Tylenol 325mg Tab) 650 mg PO Q4 PRN PRN Reason: Fever >100.4 F Last Admin: 10/02/16 16:27 Dose: 650 mg Acetaminophen (Tylenol 325mg Tab) 650 mg PO Q4 PRN PRN Reason: Pain, moderate (4-7) Last Admin: 09/16/16 22:34 Dose: 650 mg Albuterol Sulfate (Albuterol 0.083% Inhal Barbie (2.5 Mg/3 Ml) Ud) 2.5 mg INH RQ4 PRN PRN Reason: Shortness of Breath Albuterol/Ipratropium (Duoneb 3 Mg/0.5 Mg (3 Ml) Ud) 3 ml INH RQ4 PRN PRN Reason: Shortness of Breath Apixaban (Eliquis) 5 mg PO BID [facility] PRN Reason: Protocol Last Admin: 10/24/16 08:37 Dose: 5 mg Aspirin (Ecotrin) 81 mg PO DAILY [facility] Last Admin: 10/24/16 08:45 Dose: 81 mg Atorvastatin Calcium (Lipitor) 40 mg PO DAILY [facility] Last Admin: 10/24/16 08:41 Dose: 40 mg Benzonatate (Tessalon Perles) 200 mg PO TID PRN PRN Reason: Cough Last Admin: 10/02/16 14:07 Dose: 200 mg Cinacalcet (Sensipar) 30 mg PO DAILY [facility] Last Admin: 10/24/16 08:43 Dose: 30 mg Diphenhydramine HCl (Benadryl) 25 mg PO Q6 PRN PRN Reason: Itching / Pruritus Epoetin Tha (Procrit) 20,000 unit [place] [facility] [place] Admin: 10/23/16 08:45 Dose: 20,000 unit Ergocalciferol (Drisdol 50,000 Intl Units Cap) 1 cap PO Q7D [facility] Stop: 11/06/16 11:16 Last Admin: 10/23/16 12:19 Dose: 1 cap Fluconazole (Diflucan) 100 mg PO DAILY [facility] Last Admin: 10/24/16 08:36 Dose: 100 mg Gabapentin (Neurontin) 300 mg PO TID [facility] Last Admin: 10/24/16 08:41 Dose: 300 mg Hydrocortisone (Anusol-Hc) 1 applic [place] BID [facility] Last Admin: 10/24/16 08:35 Dose: Not Given Hydromorphone HCl (Dilaudid) 1 mg IVP Q3H PRN PRN Reason: Pain, severe (8-10) Last Admin: 10/24/16 13:26 Dose: 1 mg Amikacin Sulfate 250 mg/ (Sodium Chloride) 101 mls @ 100.609 mls/hr [place] [facility] Last Admin: 10/23/16 08:35 Dose: 100.609 mls/hr Meropenem 500 mg/ Sodium (Chloride) 100 mls @ 100 mls/hr IVPB DAILY@0100 [facility] Last Admin: 10/23/16 23:58 Dose: 100 mls/hr Piperacillin Sod/Tazobactam (Sod 2.25 gm/ Sodium Chloride) 100 mls @ 100 mls/ hr IVPB Q12@0600,1800 [facility] Last Admin: 10/24/16 05:52 Dose: 100 mls/hr Sodium Chloride (Sodium Chloride 0.9%) 1,000 mls @ 10 mls/hr IV .Q24H [facility] Last Admin: 10/23/16 17:37 Dose: Not Given Insulin Detemir (Levemir) 30 units SC HS [facility] Last Admin: 10/23/16 21:00 Dose: 30 units Insulin Human Lispro (Humalog) 8 units SC AC [facility] Last Admin: 10/24/16 08:37 Dose: 8 units Lidocaine (Lidoderm) 1 ea TD DAILY [facility] Last Admin: 10/24/16 08:40 Dose: 1 ea Linezolid (Zyvox) 600 mg PO Q12 [facility] Last Admin: 10/24/16 08:44 Dose: 600 mg Nystatin (Nystop Topical Powder) 1 applic TOP BID [facility] Last Admin: 10/24/16 08:42 Dose: 1 applic Ondansetron HCl (Zofran Inj) 4 mg IVP Q6 PRN PRN Reason: Nausea/Vomiting Last Admin: 09/19/16 10:26 Dose: 4 mg Pantoprazole Sodium (Protonix Ec Tab) 40 mg PO DAILY [facility] Last Admin: 10/24/16 08:42 Dose: 40 mg Phenylephrine HCl (Dagoberto-Synephrine 0.5% Nasal [place]) 1 spry ALLAN Q4 PRN PRN Reason: Nasal congestion Sevelamer HCl (Renagel) 1,600 mg PO TID [facility] Last Admin: 10/24/16 08:43 Dose: 1,600 mg Topiramate (Topamax) 50 mg PO BID [facility] Last Admin: 10/24/16 08:43 Dose: 50 mg Vitamin B Complex/Vit C/Folic Acid (Nephro-Ajay) 1 tab PO DAILY [facility] Last Admin: 10/24/16 08:41 Dose: 1 tab - Labs Labs: 10/23/16 13:00 10/23/16 13:00 PT 17.6 Seconds (9.8-13.1) H 10/15/16 07:00 INR 1.5 (0.9-1.2) H 10/15/16 07:00 APTT 36.6 Seconds (25.6-37.1) 10/15/16 07:00
--- NOTE | 2016-10-24 10:15 | CP.PCM.PN ---
Subjective - Date & Time of Evaluation Date of Evaluation: 10/24/16 Time of Evaluation: 09:00 - Subjective Subjective: Pt s/e at bedside this AM. NAEO. Patient denies any pain, fevers, or any other symptoms. Theres is some persistent sanguinous leaking from the lateral corner of the wound vac dressing but other orta wound vac intact and functioning well Objective - Vital Signs/Intake and Output Vital Signs (last 24 hours): Temp Pulse Resp BP Pulse Ox 97.6 F 117 H 20 141/75 98 10/24/16 08:18 10/24/16 08:18 10/24/16 08:18 10/24/16 08:18 10/24/16 08:18 - Medications Medications: Current Medications Acetaminophen (Tylenol 325mg Tab) 650 mg PO Q4 PRN PRN Reason: Fever >100.4 F Last Admin: 10/02/16 16:27 Dose: 650 mg Acetaminophen (Tylenol 325mg Tab) 650 mg PO Q4 PRN PRN Reason: Pain, moderate (4-7) Last Admin: 09/16/16 22:34 Dose: 650 mg Albuterol Sulfate (Albuterol 0.083% Inhal Barbie (2.5 Mg/3 Ml) Ud) 2.5 mg INH RQ4 PRN PRN Reason: Shortness of Breath Albuterol/Ipratropium (Duoneb 3 Mg/0.5 Mg (3 Ml) Ud) 3 ml INH RQ4 PRN PRN Reason: Shortness of Breath Apixaban (Eliquis) 5 mg PO BID [facility] PRN Reason: Protocol Last Admin: 10/24/16 08:37 Dose: 5 mg Aspirin (Ecotrin) 81 mg PO DAILY [facility] Last Admin: 10/24/16 08:45 Dose: 81 mg Atorvastatin Calcium (Lipitor) 40 mg PO DAILY [facility] Last Admin: 10/24/16 08:41 Dose: 40 mg Benzonatate (Tessalon Perles) 200 mg PO TID PRN PRN Reason: Cough Last Admin: 10/02/16 14:07 Dose: 200 mg Cinacalcet (Sensipar) 30 mg PO DAILY [facility] Last Admin: 10/24/16 08:43 Dose: 30 mg Diphenhydramine HCl (Benadryl) 25 mg PO Q6 PRN PRN Reason: Itching / Pruritus Epoetin Tha (Procrit) 20,000 unit IV MWF [facility] Last Admin: 10/23/16 08:45 Dose: 20,000 unit Ergocalciferol (Drisdol 50,000 Intl Units Cap) 1 cap PO Q7D [facility] Stop: 11/06/16 11:16 Last Admin: 10/23/16 12:19 Dose: 1 cap Fluconazole (Diflucan) 100 mg PO DAILY [facility] Last Admin: 10/24/16 08:36 Dose: 100 mg Gabapentin (Neurontin) 300 mg PO TID [facility] Last Admin: 10/24/16 08:41 Dose: 300 mg Hydrocortisone (Anusol-Hc) 1 applic [place] BID [facility] Last Admin: 10/24/16 08:35 Dose: Not Given Hydromorphone HCl (Dilaudid) 1 mg IVP Q3H PRN PRN Reason: Pain, severe (8-10) Last Admin: 10/24/16 03:34 Dose: 1 mg Amikacin Sulfate 250 mg/ (Sodium Chloride) 101 mls @ 100.609 mls/hr IVPB MWF [facility] Last Admin: 10/23/16 08:35 Dose: 100.609 mls/hr Meropenem 500 mg/ Sodium (Chloride) 100 mls @ 100 mls/hr IVPB DAILY@0100 [facility] Last Admin: 10/23/16 23:58 Dose: 100 mls/hr Piperacillin Sod/Tazobactam (Sod 2.25 gm/ Sodium Chloride) 100 mls @ 100 mls/ hr IVPB Q12@0600,1800 [facility] Last Admin: 10/24/16 05:52 Dose: 100 mls/hr Sodium Chloride (Sodium Chloride 0.9%) 1,000 mls @ 10 mls/hr IV .Q24H [facility] Last Admin: 10/23/16 17:37 Dose: Not Given Insulin Detemir (Levemir) 30 units SC HS [facility] Last Admin: 10/23/16 21:00 Dose: 30 units Insulin Human Lispro (Humalog) 8 units SC AC [facility] Last Admin: 10/24/16 08:37 Dose: 8 units Lidocaine (Lidoderm) 1 ea TD DAILY [facility] Last Admin: 10/24/16 08:40 Dose: 1 ea Linezolid (Zyvox) 600 mg PO Q12 [facility] Last Admin: 10/24/16 08:44 Dose: 600 mg Nystatin (Nystop Topical Powder) 1 applic TOP BID [facility] Last Admin: 10/24/16 08:42 Dose: 1 applic Ondansetron HCl (Zofran Inj) 4 mg IVP Q6 PRN PRN Reason: Nausea/Vomiting Last Admin: 09/19/16 10:26 Dose: 4 mg Pantoprazole Sodium (Protonix Ec Tab) 40 mg PO DAILY [facility] Last Admin: 10/24/16 08:42 Dose: 40 mg Phenylephrine HCl (Dagoberto-Synephrine 0.5% Nasal [place]) 1 spry ALLAN Q4 PRN PRN Reason: Nasal congestion Sevelamer HCl (Renagel) 1,600 mg PO TID [facility] Last Admin: 10/24/16 08:43 Dose: 1,600 mg Topiramate (Topamax) 50 mg PO BID [facility] Last Admin: 10/24/16 08:43 Dose: 50 mg Vitamin B Complex/Vit C/Folic Acid (Nephro-Ajay) 1 tab PO DAILY [facility] Last Admin: 10/24/16 08:41 Dose: 1 tab - Labs Labs: 10/23/16 13:00 10/23/16 13:00 PT 17.6 Seconds (9.8-13.1) H 10/15/16 07:00 INR 1.5 (0.9-1.2) H 10/15/16 07:00 APTT 36.6 Seconds (25.6-37.1) 10/15/16 07:00 - Constitutional Appears: Well, Non-toxic, No Acute Distress - Head Exam Head Exam: ATRAUMATIC, NORMOCEPHALIC - Eye Exam Eye Exam: Normal appearance. absent: Conjunctival injection, Scleral icterus - ENT Exam ENT Exam: Mucous Membranes Moist, Normal Oropharynx - Respiratory Exam Respiratory Exam: NORMAL BREATHING PATTERN. absent: Accessory Muscle Use, Respiratory Distress - GI/Abdominal Exam GI & Abdominal Exam: Soft. absent: Distended, Tenderness - Extremities Exam Additional comments: BL bka. Wound vac over R stump with sanguinous leaking from lateral corner. - Neurological Exam Neurological Exam: Alert, Awake, Oriented x3 - Skin Skin Exam: Dry, Normal Color, Warm
[2016-10-24] MEDS ORDERED: Silver Nitrate Topical - Stick TOP ONE (13:34)
--- NOTE | 2016-10-24 14:10 | PN ---
DATE: 10/24/2016 ROOM: 663 SUBJECTIVE: This is a 46-year-old female with recent uncontrolled type 2 insulin-requiring diabetes now being followed closely for metabolic management. Her glycemic levels are much improved at this t jesus, especially postoperatively following a right below-knee amputation for right heel osteomyelitis and severe arterial vasculopathy. Her glycemic levels are much improved and the latest chemistries s howed a BUN of 14, sodium 143, potassium 3.5, chloride 102, CO2 29, glucose 97 and creatinine 2.5. S o at this time, we will continue the same basal and bolus insulin regimen as ordered with Levemir giv en as 30 units subQ at bedtime daily and Humalog given as 8 units subQ t.i.d. before meals as ordered . We will titrate incrementally as indicated to optimize metabolic control. We will follow. Irene Ambrose MD cc: [phone] TT: 10/24/2016 14:09:41 Confirmation # [id number] Dictation # [id number] tn
--- NOTE | 2016-10-24 18:42 | CP.PCM.PN ---
Subjective - Date & Time of Evaluation Date of Evaluation: 10/24/16 Time of Evaluation: 18:40 - Subjective Subjective: Notes by Drs. Sands, [place], and Evita Shepard appreciated. R BK wound is healing with no signs of infection or necrosis and goo granulation tissue. Patient continues on 3 iv and 2 po antibiotics. Final report on wound cultue of 10/21 is still pending. Glucoses OK. Per dietitian Chucky Steward removed the protein restriction from diet. Hgb 10.2 Objective - Vital Signs/Intake and Output Vital Signs (last 24 hours): Temp Pulse Resp BP Pulse Ox 97.7 F 111 H 20 97/48 L 96 10/24/16 16:12 10/24/16 16:12 10/24/16 16:12 10/24/16 16:12 10/24/16 16:12 - Medications Medications: Current Medications Acetaminophen (Tylenol 325mg Tab) 650 mg PO Q4 PRN PRN Reason: Fever >100.4 F Last Admin: 10/02/16 16:27 Dose: 650 mg Acetaminophen (Tylenol 325mg Tab) 650 mg PO Q4 PRN PRN Reason: Pain, moderate (4-7) Last Admin: 09/16/16 22:34 Dose: 650 mg Albuterol Sulfate (Albuterol 0.083% Inhal Barbie (2.5 Mg/3 Ml) Ud) 2.5 mg INH RQ4 PRN PRN Reason: Shortness of Breath Albuterol/Ipratropium (Duoneb 3 Mg/0.5 Mg (3 Ml) Ud) 3 ml INH RQ4 PRN PRN Reason: Shortness of Breath Apixaban (Eliquis) 5 mg PO BID [facility] PRN Reason: Protocol Last Admin: 10/24/16 16:33 Dose: 5 mg Aspirin (Ecotrin) 81 mg PO DAILY [facility] Last Admin: 10/24/16 08:45 Dose: 81 mg Atorvastatin Calcium (Lipitor) 40 mg PO DAILY [facility] Last Admin: 10/24/16 08:41 Dose: 40 mg Benzonatate (Tessalon Perles) 200 mg PO TID PRN PRN Reason: Cough Last Admin: 10/02/16 14:07 Dose: 200 mg Cinacalcet (Sensipar) 30 mg PO DAILY [facility] Last Admin: 10/24/16 08:43 Dose: 30 mg Diphenhydramine HCl (Benadryl) 25 mg PO Q6 PRN PRN Reason: Itching / Pruritus Epoetin Tha (Procrit) 20,000 [place] [facility] Last Admin: 10/23/16 08:45 Dose: 20,000 unit Ergocalciferol (Drisdol 50,000 Intl Units Cap) 1 cap PO Q7D [facility] Stop: 11/06/16 11:16 Last Admin: 10/23/16 12:19 Dose: 1 cap Fluconazole (Diflucan) 100 mg PO DAILY [facility] Last Admin: 10/24/16 08:36 Dose: 100 mg Gabapentin (Neurontin) 300 mg PO TID [facility] Last Admin: 10/24/16 16:37 Dose: 300 mg Hydrocortisone (Anusol-Hc) 1 applic [place] BID [facility] Last Admin: 10/24/16 16:32 Dose: Not Given Hydromorphone HCl (Dilaudid) 1 mg IVP Q3H PRN PRN Reason: Pain, severe (8-10) Last Admin: 10/24/16 13:26 Dose: 1 mg Amikacin Sulfate 250 mg/ (Sodium Chloride) 101 mls @ 100.609 mls/hr IVPB [facility] Last Admin: 10/23/16 08:35 Dose: 100.609 mls/hr Meropenem 500 mg/ Sodium (Chloride) 100 mls @ 100 mls/hr IVPB DAILY@0100 [facility] Last Admin: 10/23/16 23:58 Dose: 100 mls/hr Piperacillin Sod/Tazobactam (Sod 2.25 gm/ Sodium Chloride) 100 mls @ 100 mls/ hr IVPB Q12@0600,1800 [facility] Last Admin: 10/24/16 17:16 Dose: 100 mls/hr Sodium Chloride (Sodium Chloride 0.9%) 1,000 mls @ 10 mls/hr IV .Q24H [facility] Last Admin: 10/23/16 17:37 Dose: Not Given Insulin Detemir (Levemir) 30 units SC [facility] Last Admin: 10/23/16 21:00 Dose: 30 units Insulin Human Lispro (Humalog) 8 units SC AC [facility] Last Admin: 10/24/16 16:35 Dose: 8 units Lidocaine (Lidoderm) 1 ea TD DAILY [facility] Last Admin: 10/24/16 08:40 Dose: 1 ea Linezolid (Zyvox) 600 mg PO Q12 [facility] Last Admin: 10/24/16 08:44 Dose: 600 mg Nystatin (Nystop Topical Powder) 1 applic TOP BID [facility] Last Admin: 10/24/16 16:40 Dose: Not Given Ondansetron HCl (Zofran Inj) 4 mg IVP Q6 PRN PRN Reason: Nausea/Vomiting Last Admin: 09/19/16 10:26 Dose: 4 mg Pantoprazole Sodium (Protonix Ec Tab) 40 mg PO DAILY [facility] Last Admin: 10/24/16 08:42 Dose: 40 mg Phenylephrine HCl (Dagoberto-Synephrine 0.5% Nasal [place]) 1 spry ALLAN Q4 PRN PRN Reason: Nasal congestion Sevelamer HCl (Renagel) 1,600 mg PO TID [facility] Last Admin: 10/24/16 16:38 Dose: 1,600 mg Topiramate (Topamax) 50 mg PO BID [facility] Last Admin: 10/24/16 16:40 Dose: 50 mg Vitamin B Complex/Vit C/Folic Acid (Nephro-Ajay) 1 tab PO DAILY [facility] Last Admin: 10/24/16 08:41 Dose: 1 tab - Labs Labs: 10/23/16 13:00 10/23/16 13:00 PT 17.6 Seconds (9.8-13.1) H 10/15/16 07:00 INR 1.5 (0.9-1.2) H 10/15/16 07:00 APTT 36.6 Seconds (25.6-37.1) 10/15/16 07:00 - Constitutional Appears: No Acute Distress - Head Exam Head Exam: NORMAL INSPECTION - Eye Exam Eye Exam: Normal appearance - ENT Exam ENT Exam: Mucous Membranes Moist - Neck Exam Neck Exam: Normal Inspection Additional comments: R subclavian Permacath intact. - Respiratory Exam Respiratory Exam: Clear to Ausculation Bilateral, NORMAL BREATHING PATTERN - Cardiovascular Exam Cardiovascular Exam: REGULAR RHYTHM, +S1, +S2 - GI/Abdominal Exam GI & Abdominal Exam: Soft, Normal Bowel Sounds - Back Exam Additional comments: See note by Dr. Mccormack. Left femoral PICC line intact. - Neurological Exam Neurological Exam: Alert, Awake, CN II-XII Intact, Oriented x3 - Psychiatric Exam Psychiatric exam: Normal Affect, Normal Mood - Skin Skin Exam: Dry, Normal Color, Warm Assessment and Plan (1) Status post below knee amputation of right lower extremity Assessment & Plan: We need to see more healing before patient will be ready for acute rehab, but perhaps next week.... Continue same tx as we are making nice progres. Status: Acute (2) Osteomyelitis of ankle or foot Status: Acute (3) ESRD (end stage renal disease) on dialysis Status: Chronic (4) DM type 2 (diabetes mellitus, type 2) Status: Chronic (5) Coagulopathy Status: Chronic (6) Anemia, blood loss Status: Acute (7) Peripheral arterial occlusive disease Status: Chronic
[2016-10-24] MEDS ORDERED: Hydrocortisone 2.5% (Rectal) CREAM PR PRN (18:47)
--- NOTE | 2016-10-24 19:37 | CP.PCM.PN ---
Subjective - Date & Time of Evaluation Date of Evaluation: 10/24/16 Time of Evaluation: 19:35 - Subjective Subjective: id note awaiting any new culture results Objective - Vital Signs/Intake and Output Vital Signs (last 24 hours): Temp Pulse Resp BP Pulse Ox 97.7 F 111 H 20 97/48 L 96 10/24/16 16:12 10/24/16 16:12 10/24/16 16:12 10/24/16 16:12 10/24/16 16:12 - Medications Medications: Current Medications Acetaminophen (Tylenol 325mg Tab) 650 mg PO Q4 PRN PRN Reason: Fever >100.4 F Last Admin: 10/02/16 16:27 Dose: 650 mg Acetaminophen (Tylenol 325mg Tab) 650 mg PO Q4 PRN PRN Reason: Pain, moderate (4-7) Last Admin: 09/16/16 22:34 Dose: 650 mg Albuterol Sulfate (Albuterol 0.083% Inhal Barbie (2.5 Mg/3 Ml) Ud) 2.5 mg INH RQ4 PRN PRN Reason: Shortness of Breath Albuterol/Ipratropium (Duoneb 3 Mg/0.5 Mg (3 Ml) Ud) 3 ml INH RQ4 PRN PRN Reason: Shortness of Breath Apixaban (Eliquis) 5 mg PO BID [facility] PRN Reason: Protocol Last Admin: 10/24/16 16:33 Dose: 5 mg Aspirin (Ecotrin) 81 mg PO DAILY [facility] Last Admin: 10/24/16 08:45 Dose: 81 mg Atorvastatin Calcium (Lipitor) 40 mg PO DAILY [facility] Last Admin: 10/24/16 08:41 Dose: 40 mg Benzonatate (Tessalon Perles) 200 mg PO TID PRN PRN Reason: Cough Last Admin: 10/02/16 14:07 Dose: 200 mg Cinacalcet (Sensipar) 30 mg PO DAILY [facility] Last Admin: 10/24/16 08:43 Dose: 30 mg Diphenhydramine HCl (Benadryl) 25 mg PO Q6 PRN PRN Reason: Itching / Pruritus Epoetin Tha (Procrit) 20,000 unit IV MWF [facility] Last Admin: 10/23/16 08:45 Dose: 20,000 unit Ergocalciferol (Drisdol 50,000 Intl Units Cap) 1 cap PO Q7D [facility] Stop: 11/06/16 11:16 Last Admin: 10/23/16 12:19 Dose: 1 cap Fluconazole (Diflucan) 100 mg PO DAILY [facility] Last Admin: 10/24/16 08:36 Dose: 100 mg Gabapentin (Neurontin) 300 mg PO TID [facility] Last Admin: 10/24/16 16:37 Dose: 300 mg Hydrocortisone (Anusol-Hc) 1 applic [place] BID PRN PRN Reason: Inflammation Hydromorphone HCl (Dilaudid) 1 mg IVP Q3H PRN PRN Reason: Pain, severe (8-10) Last Admin: 10/24/16 13:26 Dose: 1 mg Amikacin Sulfate 250 mg/ (Sodium Chloride) 101 mls @ 100.609 mls/hr IVPB MWF [facility] Last Admin: 10/23/16 08:35 Dose: 100.609 mls/hr Meropenem 500 mg/ Sodium (Chloride) 100 mls @ 100 mls/hr IVPB DAILY@0100 [facility] Last Admin: 10/23/16 23:58 Dose: 100 mls/hr Piperacillin Sod/Tazobactam (Sod 2.25 gm/ Sodium Chloride) 100 mls @ 100 mls/ hr IVPB Q12@0600,1800 [facility] Last Admin: 10/24/16 17:16 Dose: 100 mls/hr Sodium Chloride (Sodium Chloride 0.9%) 1,000 mls @ 10 mls/hr IV .Q24H [facility] Last Admin: 10/23/16 17:37 Dose: Not Given Insulin Detemir (Levemir) 30 units SC HS [facility] Last Admin: 10/23/16 21:00 Dose: 30 units Insulin Human Lispro (Humalog) 8 units SC AC [facility] Last Admin: 10/24/16 16:35 Dose: 8 units Lidocaine (Lidoderm) 1 ea TD DAILY [facility] Last Admin: 10/24/16 08:40 Dose: 1 ea Linezolid (Zyvox) 600 mg PO Q12 [facility] Last Admin: 10/24/16 08:44 Dose: 600 mg Nystatin (Nystop Topical Powder) 1 applic TOP BID [facility] Last Admin: 10/24/16 16:40 Dose: Not Given Ondansetron HCl (Zofran Inj) 4 mg IVP Q6 PRN PRN Reason: Nausea/Vomiting Last Admin: 09/19/16 10:26 Dose: 4 mg Pantoprazole Sodium (Protonix Ec Tab) 40 mg PO DAILY [facility] Last Admin: 10/24/16 08:42 Dose: 40 mg Phenylephrine HCl (Dagoberto-Synephrine 0.5% Nasal [place]) 1 spry ALLAN Q4 PRN PRN Reason: Nasal congestion Sevelamer HCl (Renagel) 1,600 mg PO TID [facility] Last Admin: 10/24/16 16:38 Dose: 1,600 mg Topiramate (Topamax) 50 mg PO BID [facility] Last Admin: 10/24/16 16:40 Dose: 50 mg Vitamin B Complex/Vit C/Folic Acid (Nephro-Ajay) 1 tab PO DAILY [facility] Last Admin: 10/24/16 08:41 Dose: 1 tab - Labs Labs: 10/23/16 13:00 10/23/16 13:00 PT 17.6 Seconds (9.8-13.1) H 10/15/16 07:00 INR 1.5 (0.9-1.2) H 10/15/16 07:00 APTT 36.6 Seconds (25.6-37.1) 10/15/16 07:00
[2016-10-24] MEDS: Insulin Detemir 100 Units/ml Inj SC SCH (21:34)
--- NOTE | 2016-10-24 23:41 | CP.PCM.PN ---
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 Her Antibiotics are simplified to 3 IV and 2 PO, after she was on 4 IV Antibiotics. Her VS are Normal. Her cultures of are pending. She has no seizures. Objective - Vital Signs/Intake and Output Vital Signs (last 24 hours): Temp Pulse Resp BP Pulse Ox 97.7 F 111 H 20 97/48 L 96 10/24/16 16:12 10/24/16 16:12 10/24/16 16:12 10/24/16 16:12 10/24/16 16:12 - Medications Medications: Current Medications Acetaminophen (Tylenol 325mg Tab) 650 mg PO Q4 PRN PRN Reason: Fever >100.4 F Last Admin: 10/02/16 16:27 Dose: 650 mg Acetaminophen (Tylenol 325mg Tab) 650 mg PO Q4 PRN PRN Reason: Pain, moderate (4-7) Last Admin: 09/16/16 22:34 Dose: 650 mg Albuterol Sulfate (Albuterol 0.083% Inhal Barbie (2.5 Mg/3 Ml) Ud) 2.5 mg INH RQ4 PRN PRN Reason: Shortness of Breath Albuterol/Ipratropium (Duoneb 3 Mg/0.5 Mg (3 Ml) Ud) 3 ml INH RQ4 PRN PRN Reason: Shortness of Breath Apixaban (Eliquis) 5 mg PO BID [facility] PRN Reason: Protocol Last Admin: 10/24/16 16:33 Dose: 5 mg Aspirin (Ecotrin) 81 mg PO DAILY [facility] Last Admin: 10/24/16 08:45 Dose: 81 mg Atorvastatin Calcium (Lipitor) 40 mg PO DAILY [facility] Last Admin: 10/24/16 08:41 Dose: 40 mg Benzonatate (Tessalon Perles) 200 mg PO TID PRN PRN Reason: Cough Last Admin: 10/02/16 14:07 Dose: 200 mg Cinacalcet (Sensipar) 30 mg PO DAILY [facility] Last Admin: 10/24/16 08:43 Dose: 30 mg Diphenhydramine HCl (Benadryl) 25 mg PO Q6 PRN PRN Reason: Itching / Pruritus Epoetin Tha (Procrit) 20,000 unit IV MWF [facility] Last Admin: 10/23/16 08:45 Dose: 20,000 unit Ergocalciferol (Drisdol 50,000 Intl Units Cap) 1 cap PO Q7D [facility] Stop: 11/06/16 11:16 Last Admin: 10/23/16 12:19 Dose: 1 cap Fluconazole (Diflucan) 100 mg PO DAILY [facility] Last Admin: 10/24/16 08:36 Dose: 100 mg Gabapentin (Neurontin) 300 mg PO TID [facility] Last Admin: 10/24/16 16:37 Dose: 300 mg Hydrocortisone (Anusol-Hc) 1 applic [place] BID PRN PRN Reason: Inflammation Hydromorphone HCl (Dilaudid) 1 mg IVP Q3H PRN PRN Reason: Pain, severe (8-10) Last Admin: 10/24/16 21:33 Dose: 1 mg Amikacin Sulfate 250 mg/ (Sodium Chloride) 101 mls @ 100.609 [facility]ls[facility] Last Admin: 10/23/16 08:35 Dose: 100.609 mls/hr Meropenem 500 mg/ Sodium (Chloride) 100 mls @ 100 mls/hr IVPB DAILY@0100 [facility] Last Admin: 10/23/16 23:58 Dose: 100 mls/hr Piperacillin Sod/Tazobactam (Sod 2.25 gm/ Sodium Chloride) 100 mls @ 100 mls/ hr IVPB Q12@0600,1800 [facility] Last Admin: 10/24/16 17:16 Dose: 100 mls/hr Sodium Chloride (Sodium Chloride 0.9%) 1,000 mls @ 10 mls/hr IV .Q24H [facility] Last Admin: 10/23/16 17:37 Dose: Not Given Insulin Detemir (Levemir) 30 units SC HS [facility] Last Admin: 10/24/16 21:34 Dose: 30 units Insulin Human Lispro (Humalog) 8 units SC AC [facility] Last Admin: 10/24/16 16:35 Dose: 8 units Lidocaine (Lidoderm) 1 ea TD DAILY [facility] Last Admin: 10/24/16 08:40 Dose: 1 ea Linezolid (Zyvox) 600 mg PO Q12 [facility] Last Admin: 10/24/16 21:36 Dose: 600 mg Nystatin (Nystop Topical Powder) 1 applic TOP BID [facility] Last Admin: 10/24/16 16:40 Dose: Not Given Ondansetron HCl (Zofran Inj) 4 mg IVP Q6 PRN PRN Reason: Nausea/Vomiting Last Admin: 09/19/16 10:26 Dose: 4 mg Pantoprazole Sodium (Protonix Ec Tab) 40 mg PO DAILY [facility] Last Admin: 10/24/16 08:42 Dose: 40 mg Phenylephrine HCl (Dagoberto-Synephrine 0.5% Nasal [place]) 1 spry ALLAN Q4 PRN PRN Reason: Nasal congestion Sevelamer HCl (Renagel) 1,600 mg PO TID [facility] Last Admin: 10/24/16 16:38 Dose: 1,600 mg Topiramate (Topamax) 50 mg PO BID [facility] Last Admin: 10/24/16 16:40 Dose: 50 mg Vitamin B Complex/Vit C/Folic Acid (Nephro-Ajay) 1 tab PO DAILY [facility] Last Admin: 10/24/16 08:41 Dose: 1 tab - Labs Labs: 10/23/16 13:00 10/23/16 13:00 PT 17.6 Seconds (9.8-13.1) H 10/15/16 07:00 INR 1.5 (0.9-1.2) H 10/15/16 07:00 APTT 36.6 Seconds (25.6-37.1) 10/15/16 07:00 Assessment and Plan (1) Diabetes Status: Chronic (2) ESRD (end stage renal disease) Status: Chronic (3) Cellulitis of leg Status: Chronic (4) Hyperlipidemia Status: Chronic (5) Back pain Status: Acute (6) Bacteremia due to Gram-negative bacteria Status: Acute (7) Diabetes mellitus type 2 with peripheral artery disease Status: Acute (8) PVD (peripheral vascular disease) Status: Acute (9) Osteomyelitis of right foot Status: Acute (10) Fungal infection right foot Status: Acute
[2016-10-25] MEDS: Meropenem 500 MG in Sodium Chloride 0.9% 100 ML IVPB SCH (00:15)
[2016-10-25] MEDS: Insulin Lispro (humaLOG) 100 Units/ml Inj SC SCH ×3 (08:00→16:11)
[2016-10-25] MEDS: Epoetin Alfa 20000 UNIT/ML Inj IV SCH (08:54)
[2016-10-25] MEDS: Lidocaine 5% Patch TD SCH (08:56)
[2016-10-25] MEDS: Multivitamin Vitamin B Complex (Nephro-Vite) Tab PO SCH (08:56)
[2016-10-25] MEDS: Pantoprazole 40 mg EC Tab PO SCH (09:05)
--- NOTE | 2016-10-25 09:34 | CP.PCM.PN ---
Subjective - Date & Time of Evaluation Date of Evaluation: 10/25/16 Time of Evaluation: 07:30 - Subjective Subjective: General Surgery progress note Pt s/e at bedside this AM. NAEO. Patient denies any pain or fevers. Wound vac is functioning well, without any breakthrough bleed/leaking Objective - Vital Signs/Intake and Output Vital Signs (last 24 hours): Temp Pulse Resp BP Pulse Ox 98.1 F 116 H 18 141/65 99 10/25/16 07:26 10/25/16 07:26 10/25/16 07:26 10/25/16 07:26 10/25/16 07:26 - Medications Medications: Current Medications Acetaminophen (Tylenol 325mg Tab) 650 mg PO Q4 PRN PRN Reason: Fever >100.4 F Last Admin: 10/02/16 16:27 Dose: 650 mg Acetaminophen (Tylenol 325mg Tab) 650 mg PO Q4 PRN PRN Reason: Pain, moderate (4-7) Last Admin: 09/16/16 22:34 Dose: 650 mg Albuterol Sulfate (Albuterol 0.083% Inhal Barbie (2.5 Mg/3 Ml) Ud) 2.5 mg INH RQ4 PRN PRN Reason: Shortness of Breath Albuterol/Ipratropium (Duoneb 3 Mg/0.5 Mg (3 Ml) Ud) 3 ml INH RQ4 PRN PRN Reason: Shortness of Breath Apixaban (Eliquis) 5 mg PO BID [facility] PRN Reason: Protocol Last Admin: 10/25/16 08:56 Dose: 5 mg Aspirin (Ecotrin) 81 mg PO DAILY [facility] Last Admin: 10/25/16 08:55 Dose: 81 mg Atorvastatin Calcium (Lipitor) 40 mg PO DAILY [facility] Last Admin: 10/25/16 09:05 Dose: 40 mg Benzonatate (Tessalon Perles) 200 mg PO TID PRN PRN Reason: Cough Last Admin: 10/02/16 14:07 Dose: 200 mg Cinacalcet (Sensipar) 30 mg PO DAILY [facility] Last Admin: 10/25/16 08:56 Dose: 30 mg Diphenhydramine HCl (Benadryl) 25 mg PO Q6 PRN PRN Reason: Itching / Pruritus Epoetin Tha (Procrit) 20,000 unit IV MWF [facility] Last Admin: 10/25/16 08:54 Dose: 20,000 unit Ergocalciferol (Drisdol 50,000 Intl Units Cap) 1 cap PO Q7D [facility] Stop: 11/06/16 11:16 Last Admin: 10/23/16 12:19 Dose: 1 cap Fluconazole (Diflucan) 100 mg PO DAILY [facility] Last Admin: 10/25/16 08:55 Dose: 100 mg Gabapentin (Neurontin) 300 mg PO TID [facility] Last Admin: 10/25/16 08:55 Dose: 300 mg Hydrocortisone (Anusol-Hc) 1 applic [place] BID PRN PRN Reason: Inflammation Hydromorphone HCl (Dilaudid) 1 mg IVP Q3H PRN PRN Reason: Pain, severe (8-10) Last Admin: 10/25/16 09:11 Dose: 1 mg Amikacin Sulfate 250 mg/ (Sodium Chloride) 101 mls @ 100.609 mls/hr IVPB MWF [facility] Last Admin: 10/25/16 08:54 Dose: 100.609 mls/hr Meropenem 500 mg/ Sodium (Chloride) 100 mls @ 100 mls/hr IVPB DAILY@0100 [facility] Last Admin: 10/25/16 00:15 Dose: 100 mls/hr Piperacillin Sod/Tazobactam (Sod 2.25 gm/ Sodium Chloride) 100 mls @ 100 mls/ hr IVPB Q12@0600,1800 [facility] Last Admin: 10/25/16 05:39 Dose: 100 mls/hr Sodium Chloride (Sodium Chloride 0.9%) 1,000 mls @ 10 mls/hr IV .Q24H [facility] Last Admin: 10/23/16 17:37 Dose: Not Given Insulin Detemir (Levemir) 30 units SC HS [facility] Last Admin: 10/24/16 21:34 Dose: 30 units Insulin Human Lispro (Humalog) 8 units SC AC [facility] Last Admin: 10/25/16 08:00 Dose: 8 units Lidocaine (Lidoderm) 1 ea TD DAILY [facility] Last Admin: 10/25/16 08:56 Dose: 1 ea Linezolid (Zyvox) 600 mg PO Q12 [facility] Last Admin: 10/25/16 08:56 Dose: 600 mg Nystatin (Nystop Topical Powder) 1 applic TOP BID [facility] Last Admin: 10/25/16 08:54 Dose: 1 applic Ondansetron HCl (Zofran Inj) 4 mg IVP Q6 PRN PRN Reason: Nausea/Vomiting Last Admin: 09/19/16 10:26 Dose: 4 mg Pantoprazole Sodium (Protonix Ec Tab) 40 mg PO DAILY [facility] Last Admin: 10/25/16 09:05 Dose: 40 mg Phenylephrine HCl (Dagoberto-Synephrine 0.5% Nasal [place]) 1 spry ALLAN Q4 PRN PRN Reason: Nasal congestion Sevelamer HCl (Renagel) 1,600 mg PO TID [facility] Last Admin: 10/25/16 08:55 Dose: 1,600 mg Topiramate (Topamax) 50 mg PO BID [facility] Last Admin: 10/25/16 09:05 Dose: 50 mg Vitamin B Complex/Vit C/Folic Acid (Nephro-Ajay) 1 tab PO DAILY [facility] Last Admin: 10/25/16 08:56 Dose: 1 tab - Labs Labs: 10/23/16 13:00 10/23/16 13:00 PT 17.6 Seconds (9.8-13.1) H 10/15/16 07:00 INR 1.5 (0.9-1.2) H 10/15/16 07:00 APTT 36.6 Seconds (25.6-37.1) 10/15/16 07:00 - Constitutional Appears: Well, Non-toxic, No Acute Distress - Head Exam Head Exam: ATRAUMATIC, NORMOCEPHALIC - Eye Exam Eye Exam: Normal appearance. absent: Conjunctival injection, Scleral icterus - ENT Exam ENT Exam: Mucous Membranes Moist, Normal Oropharynx - Respiratory Exam Respiratory Exam: NORMAL BREATHING PATTERN. absent: Accessory Muscle Use, Respiratory Distress - GI/Abdominal Exam GI & Abdominal Exam: Soft. absent: Distended, Tenderness - Extremities Exam Additional comments: BL BKA with right stump with intact wound vac dressing functioning well, no leak or active bleeding. - Neurological Exam Neurological Exam: Alert, Awake, Oriented x3 - Psychiatric Exam Psychiatric exam: Normal Affect, Normal Mood - Skin Skin Exam: Dry, Intact (except as noted in the LE exam), Normal Color, Warm Assessment and Plan - Assessment and Plan (Free Text) Assessment: 46 F 4 weeks s/p Right BKA and POD# 10 s/p debridement of right leg stump suture line and wound VAC placement Patient's pain well controlled. Vital signs stable. Wound vac changed yesterday with Dr. Mccormack and wound care and showed healthy granulation tissue in the incision line. Very slow sanguinous oozing present on the medial and lateral edges of the wound which was treated with silver nitrate. Today wound vac is functioning well with no blood collection/leak Plan: - Wound VAC functioning well - Continue pain control prn - most recent wound culture 10/21: no growth x4days - Continue PT/OT - continue to monitor wound vac in conjunction with wound care nursing-- appreciate assistance. Plan to change wound vac bedside on Friday. Discussed with Dr. Easton Sands, PGY-8
[2016-10-25 09:44] LABS: HEMATOCRIT 30.9 % (34.0-47.0); MEAN CELL VOLUME 95.8 fl (81.0-99.0); MEAN CORPUSCULAR HEMOGLOBIN 29.8 pg (27.0-31.0); MEAN CORPUSCULAR HGB CONC 31.1 g/dL (33.0-37.0); RED CELL DISTRIBUTION WIDTH 22.6 % (11.5-14.5); WHITE BLOOD COUNT 8.4 K/uL (4.8-10.8)
--- NOTE | 2016-10-25 09:45 | CP.PCM.PN ---
Subjective - Date & Time of Evaluation Date of Evaluation: 10/25/16 Time of Evaluation: 09:42 - Subjective Subjective: She was seen on hemodialysis. 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 Patient receiving antibiotics as noted by the primary team. Hemodialysis continue with potassium bath 2 mEq Sodium bath 138 Bicarbonate breath 34 Ultrafiltration about 3500 as tolerated. Objective - Vital Signs/Intake and Output Vital Signs (last 24 hours): Temp Pulse Resp BP Pulse Ox 98.1 F 116 H 18 141/65 99 10/25/16 07:26 10/25/16 07:26 10/25/16 07:26 10/25/16 07:26 10/25/16 07:26 - Medications Medications: Current Medications Acetaminophen (Tylenol 325mg Tab) 650 mg PO Q4 PRN PRN Reason: Fever >100.4 F Last Admin: 10/02/16 16:27 Dose: 650 mg Acetaminophen (Tylenol 325mg Tab) 650 mg PO Q4 PRN PRN Reason: Pain, moderate (4-7) Last Admin: 09/16/16 22:34 Dose: 650 mg Albuterol Sulfate (Albuterol 0.083% Inhal [place]bie (2.5 Mg/3 Ml) Ud) 2.5 mg INH RQ4 PRN PRN Reason: Shortness of Breath Albuterol/Ipratropium (Duoneb 3 Mg/0.5 Mg (3 Ml) Ud) 3 ml INH RQ4 PRN PRN Reason: Shortness of Breath Apixaban (Eliquis) 5 mg PO BID [facility] PRN Reason: Protocol Last Admin: 10/25/16 08:56 Dose: 5 mg Aspirin (Ecotrin) 81 mg PO DAILY [facility] Last Admin: 10/25/16 08:55 Dose: 81 mg Atorvastatin Calcium (Lipitor) 40 mg PO DAILY [facility] Last Admin: 10/25/16 09:05 Dose: 40 mg Benzonatate (Tessalon Perles) 200 mg PO TID PRN PRN Reason: Cough Last Admin: 10/02/16 14:07 Dose: 200 mg Cinacalcet (Sensipar) 30 mg PO DAILY [facility] Last Admin: 10/25/16 08:56 Dose: 30 mg Diphenhydramine HCl (Benadryl) 25 mg PO Q6 PRN PRN Reason: Itching / Pruritus Epoetin Tha (Procrit) 20,000 unit IV [facility] [place] Last Admin: 10/25/16 08:54 Dose: 20,000 unit Ergocalciferol (Drisdol 50,000 Intl Units Cap) 1 cap PO Q7D [facility] Stop: 11/06/16 11:16 Last Admin: 10/23/16 12:19 Dose: 1 cap Fluconazole (Diflucan) 100 mg PO DAILY [facility] Last Admin: 10/25/16 08:55 Dose: 100 mg Gabapentin (Neurontin) 300 mg PO TID [facility] Last Admin: 10/25/16 08:55 Dose: 300 mg Hydrocortisone (Anusol-Hc) 1 applic [place] BID PRN PRN Reason: Inflammation Hydromorphone HCl (Dilaudid) 1 mg IVP Q3H PRN PRN Reason: Pain, severe (8-10) Last Admin: 10/25/16 09:11 Dose: 1 mg Amikacin Sulfate 250 mg/ (Sodium Chloride) 101 mls @ 100.609 mls/hr IVPB [facility] [place] Last Admin: 10/25/16 08:54 Dose: 100.609 mls/hr Meropenem 500 mg/ Sodium (Chloride) 100 mls @ 100 mls/hr IVPB DAILY@0100 [facility] Last Admin: 10/25/16 00:15 Dose: 100 mls/hr Piperacillin Sod/Tazobactam (Sod 2.25 gm/ Sodium Chloride) 100 mls @ 100 mls/ hr IVPB Q12@0600,1800 [facility] Last Admin: 10/25/16 05:39 Dose: 100 mls/hr Sodium Chloride (Sodium Chloride 0.9%) 1,000 mls @ 10 mls/hr IV .Q24H [facility] Last Admin: 10/23/16 17:37 Dose: Not Given Insulin Detemir (Levemir) 30 units SC [facility] Last Admin: 10/24/16 21:34 Dose: 30 units Insulin Human Lispro (Humalog) 8 units SC AC [facility] Last Admin: 10/25/16 08:00 Dose: 8 units Lidocaine (Lidoderm) 1 ea TD DAILY [facility] Last Admin: 10/25/16 08:56 Dose: 1 ea Linezolid (Zyvox) 600 mg PO Q12 [facility] Last Admin: 10/25/16 08:56 Dose: 600 mg Nystatin (Nystop Topical Powder) 1 applic TOP BID [facility] Last Admin: 10/25/16 08:54 Dose: 1 applic Ondansetron HCl (Zofran Inj) 4 mg IVP Q6 PRN PRN Reason: Nausea/Vomiting Last Admin: 09/19/16 10:26 Dose: 4 mg Pantoprazole Sodium (Protonix Ec Tab) 40 mg PO DAILY [facility] Last Admin: 10/25/16 09:05 Dose: 40 mg Phenylephrine HCl (Dagoberto-Synephrine 0.5% Nasal [place]) 1 spry ALLAN Q4 PRN PRN Reason: Nasal congestion Sevelamer HCl (Renagel) 1,600 mg PO TID [facility] Last Admin: 10/25/16 08:55 Dose: 1,600 mg Topiramate (Topamax) 50 mg PO BID [facility] Last Admin: 10/25/16 09:05 Dose: 50 mg Vitamin B Complex/Vit C/Folic Acid (Nephro-Ajay) 1 tab PO DAILY [facility] Last Admin: 10/25/16 08:56 Dose: 1 tab - Labs Labs: 10/23/16 13:00 10/23/16 13:00 PT 17.6 Seconds (9.8-13.1) H 10/15/16 07:00 INR 1.5 (0.9-1.2) H 10/15/16 07:00 APTT 36.6 Seconds (25.6-37.1) 10/15/16 07:00 Assessment and Plan (1) ESRD (end stage renal disease) Status: Chronic (2) Cellulitis of leg Status: Chronic
[2016-10-25 10:21] LABS: CALCIUM 9.3 mg/dL (8.4-10.2); POTASSIUM 4.9 MMOL/L (3.6-5.0)
--- NOTE | 2016-10-25 14:45 | CP.PCM.PN ---
Subjective - Date & Time of Evaluation Date of Evaluation: 10/25/16 Time of Evaluation: 14:42 - Subjective Subjective: Patient seen with physical therapy team. She is now able to pull herself up to sitting position, but has some truncal weakness/instability that needs work. She can roll well side to side. We are pleased with her progress and hope to get her over to acut rehab by next week if cleared by Dr. Mccormack. Wound vac on BK surgical site is functioning well and not leaking. She continues on 3 iv and 2 po antibiotics. Culture of wound from 10/21 is negative so far, but await final report. No fevers, no cough, no chest pain or dyspnea. Appetite and elimination are OK. Glucose around 100 - stable on current insulin regimen. HD proceeds well. No problems with Permacath. Objective - Vital Signs/Intake and Output Vital Signs (last 24 hours): Temp Pulse Resp BP Pulse Ox 98.1 F 116 H 18 141/65 99 10/25/16 07:26 10/25/16 07:26 10/25/16 07:26 10/25/16 07:26 10/25/16 07:26 - Medications Medications: Current Medications Acetaminophen (Tylenol 325mg Tab) 650 mg PO Q4 PRN PRN Reason: Fever >100.4 F Last Admin: 10/02/16 16:27 Dose: 650 mg Acetaminophen (Tylenol 325mg Tab) 650 mg PO Q4 PRN PRN Reason: Pain, moderate (4-7) Last Admin: 09/16/16 22:34 Dose: 650 mg Albuterol Sulfate (Albuterol 0.083% Inhal Barbie (2.5 Mg/3 Ml) Ud) 2.5 mg INH RQ4 PRN PRN Reason: Shortness of Breath Albuterol/Ipratropium (Duoneb 3 Mg/0.5 Mg (3 Ml) Ud) 3 ml INH RQ4 PRN PRN Reason: Shortness of Breath Apixaban (Eliquis) 5 mg PO BID [facility] PRN Reason: Protocol Last Admin: 10/25/16 08:56 Dose: 5 mg Aspirin (Ecotrin) 81 mg PO DAILY [facility] Last Admin: 10/25/16 08:55 Dose: 81 mg Atorvastatin Calcium (Lipitor) 40 mg PO DAILY [facility] Last Admin: 06/16/17 09:05 Dose: 40 mg Benzonatate (Tessalon Perles) 200 mg PO TID PRN PRN Reason: Cough Last Admin: 10/02/16 14:07 Dose: 200 mg Cinacalcet (Sensipar) 30 mg PO DAILY [facility] Last Admin: 10/25/16 08:56 Dose: 30 mg Diphenhydramine HCl (Benadryl) 25 mg PO Q6 PRN PRN Reason: Itching / Pruritus Epoetin Tha (Procrit) 20,000 unit IV [facility] Last Admin: 10/25/16 08:54 Dose: 20,000 unit Ergocalciferol (Drisdol 50,000 Intl Units Cap) 1 cap PO Q7D [facility] Stop: 11/06/16 11:16 Last Admin: 10/23/16 12:19 Dose: 1 cap Fluconazole (Diflucan) 100 mg PO DAILY [facility] Last Admin: 10/25/16 08:55 Dose: 100 mg Gabapentin (Neurontin) 300 mg PO TID [facility] Last Admin: 10/25/16 13:07 Dose: 300 mg Hydrocortisone (Anusol-Hc) 1 applic [place] BID PRN PRN Reason: Inflammation Hydromorphone HCl (Dilaudid) 1 mg IVP Q3H PRN PRN Reason: Pain, severe (8-10) Last Admin: 10/25/16 09:11 Dose: 1 mg Amikacin Sulfate 250 mg/ (Sodium Chloride) 101 mls @ 100.609 mls/hr IVPB [facility] Last Admin: 10/25/16 08:54 Dose: 100.609 mls/hr Meropenem 500 mg/ Sodium (Chloride) 100 mls @ 100 mls/hr IVPB DAILY@0100 [facility] Last Admin: 10/25/16 00:15 Dose: 100 mls/hr Piperacillin Sod/Tazobactam (Sod 2.25 gm/ Sodium Chloride) 100 mls @ 100 mls/ hr IVPB Q12@0600,1800 [facility] Last Admin: 10/25/16 05:39 Dose: 100 mls/hr Sodium Chloride (Sodium Chloride 0.9%) 1,000 mls @ 10 mls/hr IV .Q24H [facility] Last Admin: 10/23/16 17:37 Dose: Not Given Insulin Detemir (Levemir) 30 units SC [facility] Last Admin: 10/24/16 21:34 Dose: 30 units Insulin Human Lispro (Humalog) 8 units SC AC [facility] Last Admin: 10/25/16 12:06 Dose: 8 units Lidocaine (Lidoderm) 1 ea TD DAILY [facility] Last Admin: 10/25/16 08:56 Dose: 1 ea Linezolid (Zyvox) 600 mg PO Q12 [facility] Last Admin: 10/25/16 08:56 Dose: 600 mg Nystatin (Nystop Topical Powder) 1 applic TOP BID [facility] Last Admin: 10/25/16 08:54 Dose: 1 applic Ondansetron HCl (Zofran Inj) 4 mg IVP Q6 PRN PRN Reason: Nausea/Vomiting Last Admin: 09/19/16 10:26 Dose: 4 mg Pantoprazole Sodium (Protonix Ec Tab) 40 mg PO DAILY [facility] Last Admin: 10/25/16 09:05 Dose: 40 mg Phenylephrine HCl (Dagoberto-Synephrine 0.5% Nasal [place]) 1 spry ALLAN Q4 PRN PRN Reason: Nasal congestion Sevelamer HCl (Renagel) 1,600 mg PO TID [facility] Last Admin: 10/25/16 13:07 Dose: 1,600 mg Topiramate (Topamax) 50 mg PO BID [facility] Last Admin: 10/25/16 09:05 Dose: 50 mg Vitamin B Complex/Vit C/Folic Acid (Nephro-Ajay) 1 tab PO DAILY [facility] Last Admin: 10/25/16 08:56 Dose: 1 tab - Labs Labs: 10/25/16 09:30 10/25/16 09:30 PT 17.6 Seconds (9.8-13.1) H 10/15/16 07:00 INR 1.5 (0.9-1.2) H 10/15/16 07:00 APTT 36.6 Seconds (25.6-37.1) 10/15/16 07:00 - Constitutional Appears: No Acute Distress - Head Exam Head Exam: NORMAL INSPECTION - Eye Exam Eye Exam: Normal appearance - ENT Exam ENT Exam: Mucous Membranes Moist - Neck Exam Neck Exam: Normal Inspection - Respiratory Exam Respiratory Exam: Clear to Ausculation Bilateral, NORMAL BREATHING PATTERN - Cardiovascular Exam Cardiovascular Exam: REGULAR RHYTHM, +S1, +S2 - GI/Abdominal Exam GI & Abdominal Exam: Soft - Extremities Exam Additional comments: Wound vac in place right BK residual limb. Adjacent area is warm and non- tender. All other extremties are as before. PICC line left femoral vein intact. - Neurological Exam Neurological Exam: Alert, CN II-XII Intact, Oriented x3 - Psychiatric Exam Psychiatric exam: Normal Affect, Normal Mood - Skin Skin Exam: Dry, Normal Color, Warm Assessment and Plan (1) Status post below knee amputation of right lower extremity Assessment & Plan: Making progress in healing. I discussed plans with [place] Mckeon. We can get 2-3 weeks of acute rehab for her , but no more. Then she would have to go to [facility] for subacute rehab, for which we can get 100 days, I believe. She will need to be able to transfer and care for herself in order to go home. Physical therapists plan to begin work next week on standing (on L BK prosthesis) and then transferring. I would like to continue antibiotics until wound completely healed. Status: Acute (2) Osteomyelitis of ankle or foot Status: Acute (3) ESRD (end stage renal disease) on dialysis Status: Chronic (4) DM type 2 (diabetes mellitus, type 2) Status: Chronic (5) Coagulopathy Status: Chronic (6) Anemia, blood loss Status: Acute (7) Peripheral arterial occlusive disease Status: Chronic
[2016-10-25] MEDS: Sodium Chloride 0.9% 1,000 ML IV SCH (19:36)
--- NOTE | 2016-10-25 21:40 | PN ---
DATE: 10/25/2016 ROOM: 663 SUBJECTIVE: This is a 46-year-old female with recent uncontrolled type 2 insulin-requiring diabetes, now being followed closely for metabolic management. Her glycemic levels are fluctuating, but much improved at this time and the latest chemistries showed a BUN of 46, sodium 144, potassium 4.9, chlor patricia 104, CO2 23, glucose 100, and creatinine 6.5. So, at this time, we will continue the same basal and bolus insulin regimen to allow for dose equilibration and keep her on the Humalog given as 8 unit s subQ t.i.d. before meals as given and also keep her on the Levemir given as 30 units subQ at bedtim e daily as ordered. We will titrate incrementally as indicated to optimize metabolic control. We wi ll follow. Irene Ambrose MD cc: [phone] TT: 10/25/2016 21:39:28 Confirmation # [id number] Dictation # [id number]
[2016-10-25] MEDS: Insulin Detemir 100 Units/ml Inj SC SCH (21:55)
--- NOTE | 2016-10-25 23:07 | CP.PCM.PN ---
Subjective - Date & Time of Evaluation Date of Evaluation: 10/25/16 Time of Evaluation: 21:30 - Subjective Subjective: Patient is not in distress. She is receiving Antibiotics IV and PO. There is no seizures. She is on Topamax 50 mg Q12 hrs Her wound is clean and the Vacuum is is working. Negative Cultures. Objective - Vital Signs/Intake and Output Vital Signs (last 24 hours): Temp Pulse Resp BP Pulse Ox 98.1 F 118 H 20 108/53 L 97 10/25/16 15:54 10/25/16 15:54 10/25/16 15:54 10/25/16 15:54 10/25/16 15:54 - Medications Medications: Current Medications Acetaminophen (Tylenol 325mg Tab) 650 mg PO Q4 PRN PRN Reason: Fever >100.4 F Last Admin: 10/02/16 16:27 Dose: 650 mg Acetaminophen (Tylenol 325mg Tab) 650 mg PO Q4 PRN PRN Reason: Pain, moderate (4-7) Last Admin: 09/16/16 22:34 Dose: 650 mg Albuterol Sulfate (Albuterol 0.083% Inhal Barbie (2.5 Mg/3 Ml) Ud) 2.5 mg INH RQ4 PRN PRN Reason: Shortness of Breath Albuterol/Ipratropium (Duoneb 3 Mg/0.5 Mg (3 Ml) Ud) 3 ml INH RQ4 PRN PRN Reason: Shortness of Breath Apixaban (Eliquis) 5 mg PO BID [facility] PRN Reason: Protocol Last Admin: 10/25/16 16:12 Dose: 5 mg Aspirin (Ecotrin) 81 mg PO DAILY [facility] Last Admin: 10/25/16 08:55 Dose: 81 mg Atorvastatin Calcium (Lipitor) 40 mg PO DAILY [facility] Last Admin: 10/25/16 09:05 Dose: 40 mg Benzonatate (Tessalon Perles) 200 mg PO TID PRN PRN Reason: Cough Last Admin: 10/02/16 14:07 Dose: 200 mg Cinacalcet (Sensipar) 30 mg PO DAILY [facility] Last Admin: 10/25/16 08:56 Dose: 30 mg Diphenhydramine HCl (Benadryl) 25 mg PO Q6 PRN PRN Reason: Itching / Pruritus Epoetin Tha (Procrit) 20,000 unit IV MWF [facility] Last Admin: 10/25/16 08:54 Dose: 20,000 unit Ergocalciferol (Drisdol 50,000 Intl Units Cap) 1 cap PO Q7D [facility] Stop: 11/06/16 11:16 Last Admin: 10/23/16 12:19 Dose: 1 cap Fluconazole (Diflucan) 100 mg PO DAILY [facility] Last Admin: 10/25/16 08:55 Dose: 100 mg Gabapentin (Neurontin) 300 mg PO TID [facility] Last Admin: 10/25/16 16:10 Dose: 300 mg Hydrocortisone (Anusol-Hc) 1 applic [place] BID PRN PRN Reason: Inflammation Hydromorphone HCl (Dilaudid) 1 mg IVP Q3H PRN PRN Reason: Pain, severe (8-10) Last Admin: 10/25/16 22:05 Dose: 1 mg Amikacin Sulfate 250 mg/ (Sodium Chloride) 101 mls @ 100.609 mls/hr [facility] Last Admin: 10/25/16 08:54 Dose: 100.609 mls/hr Meropenem 500 mg/ Sodium (Chloride) 100 mls @ 100 mls/hr IVPB DAILY@0100 [facility] Last Admin: 10/25/16 00:15 Dose: 100 mls/hr Piperacillin Sod/Tazobactam (Sod 2.25 gm/ Sodium Chloride) 100 mls @ 100 mls/ hr IVPB Q12@0600,1800 [facility] Last Admin: 10/25/16 17:23 Dose: 100 mls/hr Sodium Chloride (Sodium Chloride 0.9%) 1,000 mls @ 10 mls/hr IV .Q24H [facility] Last Admin: 10/25/16 19:36 Dose: Not Given Insulin Detemir (Levemir) 30 units SC HS [facility] Last Admin: 10/25/16 21:55 Dose: 30 units Insulin Human Lispro (Humalog) 8 units SC AC [facility] Last Admin: 10/25/16 16:11 Dose: 8 units Lidocaine (Lidoderm) 1 ea TD DAILY [facility] Last Admin: 10/25/16 08:56 Dose: 1 ea Linezolid (Zyvox) 600 mg PO Q12 [facility] Last Admin: 10/25/16 21:55 Dose: 600 mg Nystatin (Nystop Topical Powder) 1 applic TOP BID [facility] Last Admin: 10/25/16 17:26 Dose: Not Given Ondansetron HCl (Zofran Inj) 4 mg IVP Q6 PRN PRN Reason: Nausea/Vomiting Last Admin: 09/19/16 10:26 Dose: 4 mg Pantoprazole Sodium (Protonix Ec Tab) 40 mg PO DAILY [facility] Last Admin: 10/25/16 09:05 Dose: 40 mg Phenylephrine HCl (Dagoberto-Synephrine 0.5% Nasal [place]) 1 spry ALLAN Q4 PRN PRN Reason: Nasal congestion Sevelamer HCl (Renagel) 1,600 mg PO TID [facility] Last Admin: 10/25/16 16:10 Dose: 1,600 mg Topiramate (Topamax) 50 mg PO BID [facility] Last Admin: 10/25/16 16:11 Dose: 50 mg Vitamin B Complex/Vit C/Folic Acid (Nephro-Ajay) 1 tab PO DAILY [facility] Last Admin: 10/25/16 08:56 Dose: 1 tab - Labs Labs: 10/25/16 09:30 10/25/16 09:30 PT 17.6 Seconds (9.8-13.1) H 10/15/16 07:00 INR 1.5 (0.9-1.2) H 10/15/16 07:00 APTT 36.6 Seconds (25.6-37.1) 10/15/16 07:00 Assessment and Plan (1) Diabetes Status: Chronic (2) ESRD (end stage renal disease) Status: Chronic (3) Cellulitis of leg Status: Chronic (4) Hyperlipidemia Status: Chronic (5) Back pain Status: Acute (6) Bacteremia due to Gram-negative bacteria Status: Acute (7) Diabetes mellitus type 2 with peripheral artery disease Status: Acute (8) PVD (peripheral vascular disease) Status: Acute (9) Osteomyelitis of right foot Status: Acute (10) Fungal infection right foot Status: Acute
[2016-10-26] MEDS: Meropenem 500 MG in Sodium Chloride 0.9% 100 ML IVPB SCH (01:10)
--- NOTE | 2016-10-26 07:10 | CP.PCM.PN ---
Subjective - Date & Time of Evaluation Date of Evaluation: 10/26/16 Time of Evaluation: 07:09 - Subjective Subjective: SURGERY PROGRESS NOTE FOR DR. MCCORMACK 46F seen and examined at bedside. Patient currently being washed. Wound vac on suction, in place, with no leak. Objective - Vital Signs/Intake and Output Vital Signs (last 24 hours): Temp Pulse Resp BP Pulse Ox 97.8 F 109 H 20 122/78 93 L 10/26/16 00:23 10/26/16 00:23 10/26/16 00:23 10/26/16 00:23 10/26/16 00:23 - Medications Medications: Current Medications Acetaminophen (Tylenol 325mg Tab) 650 mg PO Q4 PRN PRN Reason: Fever >100.4 F Last Admin: 10/02/16 16:27 Dose: 650 mg Acetaminophen (Tylenol 325mg Tab) 650 mg PO Q4 PRN PRN Reason: Pain, moderate (4-7) Last Admin: 09/16/16 22:34 Dose: 650 mg Albuterol Sulfate (Albuterol 0.083% Inhal Barbie (2.5 Mg/3 Ml) Ud) 2.5 mg INH RQ4 PRN PRN Reason: Shortness of Breath Albuterol/Ipratropium (Duoneb 3 Mg/0.5 Mg (3 Ml) Ud) 3 ml INH RQ4 PRN PRN Reason: Shortness of Breath Apixaban (Eliquis) 5 mg PO BID [facility] PRN Reason: Protocol Last Admin: 10/25/16 16:12 Dose: 5 mg Aspirin (Ecotrin) 81 mg PO DAILY [facility] Last Admin: 10/25/16 08:55 Dose: 81 mg Atorvastatin Calcium (Lipitor) 40 mg PO DAILY [facility] Last Admin: 10/25/16 09:05 Dose: 40 mg Benzonatate (Tessalon Perles) 200 mg PO TID PRN PRN Reason: Cough Last Admin: 10/02/16 14:07 Dose: 200 mg Cinacalcet (Sensipar) 30 mg PO DAILY [facility] Last Admin: 10/25/16 08:56 Dose: 30 mg Diphenhydramine HCl (Benadryl) 25 mg PO Q6 PRN PRN Reason: Itching / Pruritus Epoetin Tha (Procrit) 20,000 unit IV MWF [facility] Last Admin: 10/25/16 08:54 Dose: 20,000 unit Ergocalciferol (Drisdol 50,000 Intl Units Cap) 1 cap PO Q7D [facility] Stop: 11/06/16 11:16 Last Admin: 10/23/16 12:19 Dose: 1 cap Fluconazole (Diflucan) 100 mg PO DAILY [facility] Last Admin: 10/25/16 08:55 Dose: 100 mg Gabapentin (Neurontin) 300 mg PO TID [facility] Last Admin: 10/25/16 16:10 Dose: 300 mg Hydrocortisone (Anusol-Hc) 1 applic [place] BID PRN PRN Reason: Inflammation Hydromorphone HCl (Dilaudid) 1 mg IVP Q3H PRN PRN Reason: Pain, severe (8-10) Last Admin: 10/26/16 04:16 Dose: 1 mg Amikacin Sulfate 250 mg/ (Sodium Chloride) 101 mls @ 100.609 mls/hr IVPB MWF [facility] Last Admin: 10/25/16 08:54 Dose: 100.609 mls/hr Meropenem 500 mg/ Sodium (Chloride) 100 mls @ 100 mls/hr IVPB DAILY@0100 [facility] Last Admin: 10/26/16 01:10 Dose: 100 mls/hr Piperacillin Sod/Tazobactam (Sod 2.25 gm/ Sodium Chloride) 100 mls @ 100 mls/ hr IVPB Q12@0600,1800 [facility] Last Admin: 10/26/16 05:08 Dose: 100 mls/hr Sodium Chloride (Sodium Chloride 0.9%) 1,000 mls @ 10 mls/hr IV .Q24H [facility] Last Admin: 10/25/16 19:36 Dose: Not Given Insulin Detemir (Levemir) 30 units SC HS [facility] Last Admin: 10/25/16 21:55 Dose: 30 units Insulin Human Lispro (Humalog) 8 units SC AC [facility] Last Admin: 10/25/16 16:11 Dose: 8 units Lidocaine (Lidoderm) 1 ea TD DAILY [facility] Last Admin: 10/25/16 08:56 Dose: 1 ea Linezolid (Zyvox) 600 mg PO Q12 [facility] Last Admin: 10/25/16 21:55 Dose: 600 mg Nystatin (Nystop Topical Powder) 1 applic TOP BID [facility] Last Admin: 10/25/16 17:26 Dose: Not Given Ondansetron HCl (Zofran Inj) 4 mg IVP Q6 PRN PRN Reason: Nausea/Vomiting Last Admin: 09/19/16 10:26 Dose: 4 mg Pantoprazole Sodium (Protonix Ec Tab) 40 mg PO DAILY [facility] Last Admin: 10/25/16 09:05 Dose: 40 mg Phenylephrine HCl (Dagoberto-Synephrine 0.5% Nasal [place]) 1 spry ALLAN Q4 PRN PRN Reason: Nasal congestion Sevelamer HCl (Renagel) 1,600 mg PO TID [facility] Last Admin: 10/25/16 16:10 Dose: 1,600 mg Topiramate (Topamax) 50 mg PO BID [facility] Last Admin: 10/25/16 16:11 Dose: 50 mg Vitamin B Complex/Vit C/Folic Acid (Nephro-Ajay) 1 tab PO DAILY [facility] Last Admin: 10/25/16 08:56 Dose: 1 tab - Labs Labs: 10/25/16 09:30 10/25/16 09:30 PT 17.6 Seconds (9.8-13.1) H 10/15/16 07:00 INR 1.5 (0.9-1.2) H 10/15/16 07:00 APTT 36.6 Seconds (25.6-37.1) 10/15/16 07:00 - Constitutional Appears: Non-toxic, No Acute Distress - Respiratory Exam Respiratory Exam: Clear to Ausculation Bilateral, NORMAL BREATHING PATTERN - Cardiovascular Exam Cardiovascular Exam: REGULAR RHYTHM, +S1, +S2 - Extremities Exam Additional comments: b/l bka. Right stump has wound vac on suction. dressing clean dry in tact. no apparent leak noted - Neurological Exam Neurological Exam: Alert, Awake Assessment and Plan - Assessment and Plan (Free Text) Assessment: 46 F 4 weeks s/p Right BKA and POD# 10 s/p debridement of right leg stump suture line and wound VAC placement Patient's pain well controlled. Vital signs stable. Wound vac changed yesterday with Dr. Mccormack and wound care and showed healthy granulation tissue in the incision line. Very slow sanguinous oozing present on the medial and lateral edges of the wound which was treated with silver nitrate. Plan: - wound vac to suction - Pain control - Continue PT/OT - Plan to change wound vac bedside on Friday. Further recs discuss with Dr. Easton Jordan, PGY1
[2016-10-26] MEDS: Pantoprazole 40 mg EC Tab PO SCH (08:38)
[2016-10-26] MEDS: Multivitamin Vitamin B Complex (Nephro-Vite) Tab PO SCH (08:39)
[2016-10-26] MEDS: Insulin Lispro (humaLOG) 100 Units/ml Inj SC SCH ×3 (08:40→17:10)
[2016-10-26] MEDS: Lidocaine 5% Patch TD SCH (09:00)
--- NOTE | 2016-10-26 15:44 | CP.PCM.PN ---
Subjective - Date & Time of Evaluation Date of Evaluation: 10/26/16 Time of Evaluation: 03:00 - Subjective Subjective: Comfortable in bed Objective - Vital Signs/Intake and Output Vital Signs (last 24 hours): Temp Pulse Resp BP Pulse Ox 97.5 F L 120 H 18 136/60 97 10/26/16 08:14 10/26/16 08:14 10/26/16 08:14 10/26/16 08:14 10/26/16 08:14 - Medications Medications: Current Medications Acetaminophen (Tylenol 325mg Tab) 650 mg PO Q4 PRN PRN Reason: Fever >100.4 F Last Admin: 10/02/16 16:27 Dose: 650 mg Acetaminophen (Tylenol 325mg Tab) 650 mg PO Q4 PRN PRN Reason: Pain, moderate (4-7) Last Admin: 09/16/16 22:34 Dose: 650 mg Albuterol Sulfate (Albuterol 0.083% Inhal Barbie (2.5 Mg/3 Ml) Ud) 2.5 mg INH RQ4 PRN PRN Reason: Shortness of Breath Albuterol/Ipratropium (Duoneb 3 Mg/0.5 Mg (3 Ml) Ud) 3 ml INH RQ4 PRN PRN Reason: Shortness of Breath Apixaban (Eliquis) 5 mg PO BID [facility] PRN Reason: Protocol Last Admin: 10/26/16 08:39 Dose: 5 mg Aspirin (Ecotrin) 81 mg PO DAILY [facility] Last Admin: 10/26/16 08:38 Dose: 81 mg Atorvastatin Calcium (Lipitor) 40 mg PO DAILY [facility] Last Admin: 10/26/16 08:37 Dose: 40 mg Benzonatate (Tessalon Perles) 200 mg PO TID PRN PRN Reason: Cough Last Admin: 10/02/16 14:07 Dose: 200 mg Cinacalcet (Sensipar) 30 mg PO DAILY [facility] Last Admin: 10/26/16 08:37 Dose: 30 mg Diphenhydramine HCl (Benadryl) 25 mg PO Q6 PRN PRN Reason: Itching / Pruritus Epoetin Tha (Procrit) 20,000 unit IV MWF [facility] Last Admin: 10/25/16 08:54 Dose: 20,000 unit Ergocalciferol (Drisdol 50,000 Intl Units Cap) 1 cap PO Q7D [facility] Stop: 11/06/16 11:16 Last Admin: 10/23/16 12:19 Dose: 1 cap Fluconazole (Diflucan) 100 mg PO DAILY [facility] Last Admin: 10/26/16 08:37 Dose: 100 mg Gabapentin (Neurontin) 300 mg PO TID [facility] Last Admin: 10/26/16 12:24 Dose: 300 mg Hydrocortisone (Anusol-Hc) 1 applic SC BID PRN PRN Reason: Inflammation Hydromorphone HCl (Dilaudid) 1 mg IVP Q3H PRN PRN Reason: Pain, severe (8-10) Last Admin: 10/26/16 08:33 Dose: 1 mg Amikacin Sulfate 250 mg/ (Sodium Chloride) 101 mls @ 100.609 mls/hr IVPB MWF [facility] Last Admin: 10/25/16 08:54 Dose: 100.609 mls/hr Meropenem 500 mg/ Sodium (Chloride) 100 mls @ 100 mls/hr IVPB DAILY@0100 [facility] Last Admin: 10/26/16 01:10 Dose: 100 mls/hr Piperacillin Sod/Tazobactam (Sod 2.25 gm/ Sodium Chloride) 100 mls @ 100 mls/ hr IVPB Q12@0600,1800 [facility] Last Admin: 10/26/16 05:08 Dose: 100 mls/hr Sodium Chloride (Sodium Chloride 0.9%) 1,000 mls @ 10 mls/hr IV .Q24H [facility] Last Admin: 10/25/16 19:36 Dose: Not Given Insulin Detemir (Levemir) 30 units SC HS [facility] Last Admin: 10/25/16 21:55 Dose: 30 units Insulin Human Lispro (Humalog) 8 units SC AC [facility] Last Admin: 10/26/16 12:23 Dose: 8 units Lidocaine (Lidoderm) 1 ea TD DAILY [facility] Last Admin: 10/26/16 09:00 Dose: Not Given Linezolid (Zyvox) 600 mg PO Q12 [facility] Last Admin: 10/26/16 08:37 Dose: 600 mg Nystatin (Nystop Topical Powder) 1 applic TOP BID [facility] Last Admin: 10/26/16 08:39 Dose: 1 applic Ondansetron HCl (Zofran Inj) 4 mg IVP Q6 PRN PRN Reason: Nausea/Vomiting Last Admin: 09/19/16 10:26 Dose: 4 mg Pantoprazole Sodium (Protonix Ec Tab) 40 mg PO DAILY [facility] Last Admin: 10/26/16 08:38 Dose: 40 mg Phenylephrine HCl (Dagoberto-Synephrine 0.5% Nasal [place]) 1 spry ALLAN Q4 PRN PRN Reason: Nasal congestion Sevelamer HCl (Renagel) 1,600 mg PO TID [facility] Last Admin: 10/26/16 12:24 Dose: 1,600 mg Topiramate (Topamax) 50 mg PO BID [facility] Last Admin: 10/26/16 08:38 Dose: 50 mg Vitamin B Complex/Vit C/Folic Acid (Nephro-Ajay) 1 tab PO DAILY [facility] Last Admin: 10/26/16 08:39 Dose: 1 tab - Labs Labs: 10/25/16 09:30 10/25/16 09:30 PT 17.6 Seconds (9.8-13.1) H 10/15/16 07:00 INR 1.5 (0.9-1.2) H 10/15/16 07:00 APTT 36.6 Seconds (25.6-37.1) 10/15/16 07:00 - Respiratory Exam Additional comments: Lungs clear - Cardiovascular Exam Cardiovascular Exam: REGULAR RHYTHM - Extremities Exam Additional comments: B/L BKA Assessment and Plan - Assessment and Plan (Free Text) Assessment: ESRD PVD IDDM Plan: Dialysis was tolerated well yesterday Labs stable Cont HD, MWF
[2016-10-26] MEDS: Sodium Chloride 0.9% 1,000 ML IV SCH (17:32)
--- NOTE | 2016-10-26 18:05 | PN ---
DATE: 10/26/2016 ROOM: 663 SUBJECTIVE: This is a 46-year-old female with recent uncontrolled type 2 insulin-requiring diabetes, now being followed closely for metabolic management. She has improved clinically and metabolically postoperatively following a right below-knee amputation for severe osteomyelitis and underlying perip heral arterial disease. Her oral intake is variable, but improved as noted. The latest chemistries showed a BUN of 46, sodium 144, potassium 4.9, chloride 104, CO2 23, glucose 100, and creatinine 6.5. So, at this time, we will continue the same basal and bolus insulin regimen as given with Humalog g iven as 8 units subQ t.i.d. before meals and Levemir given as 30 units subQ at bedtime daily as order ed. We will titrate incrementally as indicated to optimize metabolic control. We will follow. Irene Ambrose MD cc: [id number] TT: 10/26/2016 18:05:13 Confirmation # [id number] Dictation # [id number]
--- NOTE | 2016-10-26 18:14 | CP.PCM.PN ---
Subjective - Date & Time of Evaluation Date of Evaluation: 10/26/16 Time of Evaluation: 18:11 - Subjective Subjective: Day # 10 post debridement of right BK wound. Wound vac is in place with no leaks and minimal drainage. Knee immobilizer in place. Dressing over patellar area is intact. No fevers. Wound culture of 10/21/16 is still pending, but neg. so far. Pt continues on 3 iv and 2 po antibiotics. DM controlled. Appetite good HD yesterday without difficulty. Permacath is holding up well. Coagulopathy - no clotting and no bleeding. No seizures, no respiratory distress or chest pain. Elimination OK. Objective - Vital Signs/Intake and Output Vital Signs (last 24 hours): Temp Pulse Resp BP Pulse Ox 98.1 F 115 H 19 116/60 97 10/26/16 16:06 10/26/16 16:06 10/26/16 16:06 10/26/16 16:06 10/26/16 16:06 - Medications Medications: Current Medications Acetaminophen (Tylenol 325mg Tab) 650 mg PO Q4 PRN PRN Reason: Fever >100.4 F Last Admin: 10/02/16 16:27 Dose: 650 mg Acetaminophen (Tylenol 325mg Tab) 650 mg PO Q4 PRN PRN Reason: Pain, moderate (4-7) Last Admin: 09/16/16 22:34 Dose: 650 mg Albuterol Sulfate (Albuterol 0.083% Inhal Barbie (2.5 Mg/3 Ml) Ud) 2.5 mg INH RQ4 PRN PRN Reason: Shortness of Breath Albuterol/Ipratropium (Duoneb 3 Mg/0.5 Mg (3 Ml) Ud) 3 ml INH RQ4 PRN PRN Reason: Shortness of Breath Apixaban (Eliquis) 5 mg PO BID JASPER PRN Reason: Protocol Last Admin: 10/26/16 17:31 Dose: 5 mg Aspirin (Ecotrin) 81 mg PO DAILY [facility] Last Admin: 10/26/16 08:38 Dose: 81 mg Atorvastatin Calcium (Lipitor) 40 mg PO DAILY [facility] Last Admin: 10/26/16 08:37 Dose: 40 mg Benzonatate (Tessalon Perles) 200 mg PO TID PRN PRN Reason: Cough Last Admin: 10/02/16 14:07 Dose: 200 mg Cinacalcet (Sensipar) 30 mg PO DAILY [facility] Last Admin: 10/26/16 08:37 Dose: 30 mg Diphenhydramine HCl (Benadryl) 25 mg PO Q6 PRN PRN Reason: Itching / Pruritus Epoetin Tha (Procrit) 20,000 unit IV MWF [facility] Last Admin: 10/25/16 08:54 Dose: 20,000 unit Ergocalciferol (Drisdol 50,000 Intl Units Cap) 1 cap PO Q7D [facility] Stop: 11/06/16 11:16 Last Admin: 10/23/16 12:19 Dose: 1 cap Fluconazole (Diflucan) 100 mg PO DAILY [facility] Last Admin: 10/26/16 08:37 Dose: 100 mg Gabapentin (Neurontin) 300 mg PO TID [facility] Last Admin: 10/26/16 17:10 Dose: 300 mg Hydrocortisone (Anusol-Hc) 1 applic [place] BID PRN PRN Reason: Inflammation Hydromorphone HCl (Dilaudid) 1 mg IVP Q3H PRN PRN Reason: Pain, severe (8-10) Last Admin: 10/26/16 08:33 Dose: 1 mg Amikacin Sulfate 250 mg/ (Sodium Chloride) 101 mls @ 100.609 mls/hr IVPB [facility] Last Admin: 10/25/16 08:54 Dose: 100.609 mls/hr Meropenem 500 mg/ Sodium (Chloride) 100 mls @ 100 mls/hr IVPB DAILY@0100 [facility] Last Admin: 10/26/16 01:10 Dose: 100 mls/hr Piperacillin Sod/Tazobactam (Sod 2.25 gm/ Sodium Chloride) 100 mls @ 100 mls/ hr IVPB Q12@0600,1800 [facility] Last Admin: 10/26/16 17:05 Dose: 100 mls/hr Sodium Chloride (Sodium Chloride 0.9%) 1,000 mls @ 10 mls/hr IV .Q24H [facility] Last Admin: 10/26/16 17:32 Dose: 10 mls/hr Insulin Detemir (Levemir) 30 units SC HS [facility] Last Admin: 10/25/16 21:55 Dose: 30 units Insulin Human Lispro (Humalog) 8 units SC AC [facility] Last Admin: 10/26/16 17:10 Dose: 8 units Lidocaine (Lidoderm) 1 ea TD DAILY [facility] Last Admin: 10/26/16 09:00 Dose: Not Given Linezolid (Zyvox) 600 mg PO Q12 [facility] Last Admin: 10/26/16 08:37 Dose: 600 mg Nystatin (Nystop Topical Powder) 1 applic TOP BID [facility] Last Admin: 10/26/16 17:31 Dose: Not Given Ondansetron HCl (Zofran Inj) 4 mg IVP Q6 PRN PRN Reason: Nausea/Vomiting Last Admin: 09/19/16 10:26 Dose: 4 mg Pantoprazole Sodium (Protonix Ec Tab) 40 mg PO DAILY [facility] Last Admin: 10/26/16 08:38 Dose: 40 mg Phenylephrine HCl (Dagoberto-Synephrine 0.5% Nasal [place]) 1 spry ALLAN Q4 PRN PRN Reason: Nasal congestion Sevelamer HCl (Renagel) 1,600 mg PO TID [facility] Last Admin: 10/26/16 17:05 Dose: 1,600 mg Topiramate (Topamax) 50 mg PO BID [facility] Last Admin: 10/26/16 17:10 Dose: 50 mg Vitamin B Complex/Vit C/Folic Acid (Nephro-Ajay) 1 tab PO DAILY [facility] Last Admin: 10/26/16 08:39 Dose: 1 tab - Labs Labs: 10/25/16 09:30 10/25/16 09:30 PT 17.6 Seconds (9.8-13.1) H 10/15/16 07:00 INR 1.5 (0.9-1.2) H 10/15/16 07:00 APTT 36.6 Seconds (25.6-37.1) 10/15/16 07:00 - Constitutional Appears: No Acute Distress - Eye Exam Eye Exam: Normal appearance - ENT Exam ENT Exam: Mucous Membranes Moist - Neck Exam Neck Exam: Normal Inspection - Respiratory Exam Respiratory Exam: Clear to Ausculation Bilateral, NORMAL BREATHING PATTERN - Cardiovascular Exam Cardiovascular Exam: REGULAR RHYTHM, +S1, +S2 - GI/Abdominal Exam GI & Abdominal Exam: Soft - Extremities Exam Additional comments: R residual limb as per subjective. L knee area skin is dry and cracking. Skin lotion applied and DEMIAN wrap removed. L femoral PICC line intact. - Back Exam Back Exam: NORMAL INSPECTION - Neurological Exam Neurological Exam: Alert, Awake, CN II-XII Intact, Oriented x3 - Psychiatric Exam Psychiatric exam: Normal Affect, Normal Mood - Skin Skin Exam: Dry, Normal Color, Warm Assessment and Plan (1) Status post below knee amputation of right lower extremity Status: Acute (2) Osteomyelitis of ankle or foot Status: Acute (3) ESRD (end stage renal disease) on dialysis Status: Chronic (4) DM type 2 (diabetes mellitus, type 2) Status: Chronic (5) Coagulopathy Status: Chronic (6) Anemia, blood loss Status: Acute (7) Peripheral arterial occlusive disease Status: Chronic
[2016-10-26] MEDS: Insulin Detemir 100 Units/ml Inj SC SCH (21:36)
--- NOTE | 2016-10-26 23:11 | CP.PCM.PN ---
Subjective - Date & Time of Evaluation Date of Evaluation: 10/26/16 Time of Evaluation: 20:10 - Subjective Subjective: No new complaints, doing the same. The wound is clean and has a favorable evolution. The wound cultures are negative. No seizures are reported. She is on Topamax 50 mg BID She is interacting and is not in pain. Objective - Vital Signs/Intake and Output Vital Signs (last 24 hours): Temp Pulse Resp BP Pulse Ox 98.1 F 115 H 19 116/60 97 10/26/16 16:06 10/26/16 16:06 10/26/16 16:06 10/26/16 16:06 10/26/16 16:06 - Medications Medications: Current Medications Acetaminophen (Tylenol 325mg Tab) 650 mg PO Q4 PRN PRN Reason: Fever >100.4 F Last Admin: 10/02/16 16:27 Dose: 650 mg Acetaminophen (Tylenol 325mg Tab) 650 mg PO Q4 PRN PRN Reason: Pain, moderate (4-7) Last Admin: 09/16/16 22:34 Dose: 650 mg Albuterol Sulfate (Albuterol 0.083% Inhal Barbie (2.5 Mg/3 Ml) Ud) 2.5 mg INH RQ4 PRN PRN Reason: Shortness of Breath Albuterol/Ipratropium (Duoneb 3 Mg/0.5 Mg (3 Ml) Ud) 3 ml INH RQ4 PRN PRN Reason: Shortness of Breath Apixaban (Eliquis) 5 mg PO BID JASPER PRN Reason: Protocol Last Admin: 10/26/16 17:31 Dose: 5 mg Aspirin (Ecotrin) 81 mg PO DAILY [facility] Last Admin: 10/26/16 08:38 Dose: 81 mg Atorvastatin Calcium (Lipitor) 40 mg PO DAILY [facility] Last Admin: 10/26/16 08:37 Dose: 40 mg Benzonatate (Tessalon Perles) 200 mg PO TID PRN PRN Reason: Cough Last Admin: 10/02/16 14:07 Dose: 200 mg Cinacalcet (Sensipar) 30 mg PO DAILY [facility] Last Admin: 10/26/16 08:37 Dose: 30 mg Diphenhydramine HCl (Benadryl) 25 mg PO Q6 PRN PRN Reason: Itching / Pruritus Epoetin Tha (Procrit) 20,000 unit IV MWF [facility] Last Admin: 10/25/16 08:54 Dose: 20,000 unit Ergocalciferol (Drisdol 50,000 Intl Units Cap) 1 cap PO Q7D [facility] Stop: 11/06/16 11:16 Last Admin: 10/23/16 12:19 Dose: 1 cap Fluconazole (Diflucan) 100 mg PO DAILY [facility] Last Admin: 10/26/16 08:37 Dose: 100 mg Gabapentin (Neurontin) 300 mg PO TID [facility] Last Admin: 10/26/16 17:10 Dose: 300 mg Hydrocortisone (Anusol-Hc) 1 applic [place] BID PRN PRN Reason: Inflammation Hydromorphone HCl (Dilaudid) 1 mg IVP Q3H PRN PRN Reason: Pain, severe (8-10) Last Admin: 10/26/16 18:32 Dose: 1 mg Amikacin Sulfate 250 mg/ (Sodium Chloride) 101 mls @ 100.609 mls/hr [facility] Last Admin: 10/25/16 08:54 Dose: 100.609 mls/hr Meropenem 500 mg/ Sodium (Chloride) 100 mls @ 100 mls/hr IVPB DAILY@0100 [facility] Last Admin: 10/26/16 01:10 Dose: 100 mls/hr Piperacillin Sod/Tazobactam (Sod 2.25 gm/ Sodium Chloride) 100 mls @ 100 mls/ hr IVPB Q12@0600,1800 [facility] Last Admin: 10/26/16 17:05 Dose: 100 mls/hr Sodium Chloride (Sodium Chloride 0.9%) 1,000 mls @ 10 mls/hr IV .Q24H [facility] Last Admin: 10/26/16 17:32 Dose: 10 mls/hr Insulin Detemir (Levemir) 30 units SC HS [facility] Last Admin: 10/26/16 21:36 Dose: 30 units Insulin Human Lispro (Humalog) 8 units SC AC [facility] Last Admin: 10/26/16 17:10 Dose: 8 units Lidocaine (Lidoderm) 1 ea TD DAILY [facility] Last Admin: 10/26/16 09:00 Dose: Not Given Linezolid (Zyvox) 600 mg PO Q12 [facility] Last Admin: 10/26/16 21:35 Dose: 600 mg Nystatin (Nystop Topical Powder) 1 applic TOP BID [facility] Last Admin: 10/26/16 17:31 Dose: Not Given Ondansetron HCl (Zofran Inj) 4 mg IVP Q6 PRN PRN Reason: Nausea/Vomiting Last Admin: 09/19/16 10:26 Dose: 4 mg Pantoprazole Sodium (Protonix Ec Tab) 40 mg PO DAILY [facility] Last Admin: 10/26/16 08:38 Dose: 40 mg Phenylephrine HCl (Dagoberto-Synephrine 0.5% Nasal [place]) 1 spry ALLAN Q4 PRN PRN Reason: Nasal congestion Sevelamer HCl (Renagel) 1,600 mg PO TID [facility] Last Admin: 10/26/16 17:05 Dose: 1,600 mg Topiramate (Topamax) 50 mg PO BID [facility] Last Admin: 10/26/16 17:10 Dose: 50 mg Vitamin B Complex/Vit C/Folic Acid (Nephro-Ajay) 1 tab PO DAILY [facility] Last Admin: 10/26/16 08:39 Dose: 1 tab - Labs Labs: 10/25/16 09:30 10/25/16 09:30 PT 17.6 Seconds (9.8-13.1) H 10/15/16 07:00 INR 1.5 (0.9-1.2) H 10/15/16 07:00 APTT 36.6 Seconds (25.6-37.1) 10/15/16 07:00 Assessment and Plan (1) Diabetes Status: Chronic (2) ESRD (end stage renal disease) Status: Chronic (3) Cellulitis of leg Status: Chronic (4) Hyperlipidemia Status: Chronic (5) Back pain Status: Acute (6) Bacteremia due to Gram-negative bacteria Status: Acute (7) Diabetes mellitus type 2 with peripheral artery disease Status: Acute (8) PVD (peripheral vascular disease) Status: Acute (9) Osteomyelitis of right foot Status: Acute (10) Fungal infection right foot Status: Acute
[2016-10-27] MEDS: Meropenem 500 MG in Sodium Chloride 0.9% 100 ML IVPB SCH (01:32)
--- NOTE | 2016-10-27 03:04 | CP.PCM.PN ---
Subjective - Date & Time of Evaluation Date of Evaluation: 10/27/16 Time of Evaluation: 07:20 - Subjective Subjective: SURGERY NOTE FOR DR. MORATAYA 46F seen and examined at bedside. Patient comfortably. NAEON. Dressing on right stump CDI. wound vac in place. Objective - Vital Signs/Intake and Output Vital Signs (last 24 hours): Temp Pulse Resp BP Pulse Ox 98.6 F 106 H 20 109/76 99 10/27/16 01:00 10/27/16 01:00 10/27/16 01:00 10/27/16 01:00 10/27/16 01:00 - Medications Medications: Current Medications Acetaminophen (Tylenol 325mg Tab) 650 mg PO Q4 PRN PRN Reason: Fever >100.4 F Last Admin: 10/02/16 16:27 Dose: 650 mg Acetaminophen (Tylenol 325mg Tab) 650 mg PO Q4 PRN PRN Reason: Pain, moderate (4-7) Last Admin: 09/16/16 22:34 Dose: 650 mg Albuterol Sulfate (Albuterol 0.083% Inhal Barbie (2.5 Mg/3 Ml) Ud) 2.5 mg INH RQ4 PRN PRN Reason: Shortness of Breath Albuterol/Ipratropium (Duoneb 3 Mg/0.5 Mg (3 Ml) Ud) 3 ml INH RQ4 PRN PRN Reason: Shortness of Breath Apixaban (Eliquis) 5 mg PO BID [facility] PRN Reason: Protocol Last Admin: 10/26/16 17:31 Dose: 5 mg Aspirin (Ecotrin) 81 mg PO DAILY [facility] Last Admin: 10/26/16 08:38 Dose: 81 mg Atorvastatin Calcium (Lipitor) 40 mg PO DAILY [facility] Last Admin: 10/26/16 08:37 Dose: 40 mg Benzonatate (Tessalon Perles) 200 mg PO TID PRN PRN Reason: Cough Last Admin: 10/02/16 14:07 Dose: 200 mg Cinacalcet (Sensipar) 30 mg PO DAILY [facility] Last Admin: 10/26/16 08:37 Dose: 30 mg Diphenhydramine HCl (Benadryl) 25 mg PO Q6 PRN PRN Reason: Itching / Pruritus Epoetin Tha (Procrit) 20,000 unit IV MWF [facility] Last Admin: 10/25/16 08:54 Dose: 20,000 unit Ergocalciferol (Drisdol 50,000 Intl Units Cap) 1 cap PO Q7D [facility] Stop: 11/06/16 11:16 Last Admin: 10/23/16 12:19 Dose: 1 cap Fluconazole (Diflucan) 100 mg PO DAILY [facility] Last Admin: 10/26/16 08:37 Dose: 100 mg Gabapentin (Neurontin) 300 mg PO TID [facility] Last Admin: 10/26/16 17:10 Dose: 300 mg Hydrocortisone (Anusol-Hc) 1 applic [place] BID PRN PRN Reason: Inflammation Hydromorphone HCl (Dilaudid) 1 mg IVP Q3H PRN PRN Reason: Pain, severe (8-10) Last Admin: 10/26/16 23:33 Dose: 1 mg Amikacin Sulfate 250 mg/ (Sodium Chloride) 101 mls @ 100.609 mls/hr IVPB MWF [facility] Last Admin: 10/25/16 08:54 Dose: 100.609 mls/hr Meropenem 500 mg/ Sodium (Chloride) 100 mls @ 100 mls/hr IVPB DAILY@0100 [facility] Last Admin: 10/27/16 01:32 Dose: 100 mls/hr Piperacillin Sod/Tazobactam (Sod 2.25 gm/ Sodium Chloride) 100 mls @ 100 mls/ hr IVPB Q12@0600,1800 [facility] Last Admin: 10/26/16 17:05 Dose: 100 mls/hr Sodium Chloride (Sodium Chloride 0.9%) 1,000 mls @ 10 mls/hr IV .Q24H [facility] Last Admin: 10/26/16 17:32 Dose: 10 mls/hr Insulin Detemir (Levemir) 30 units SC HS [facility] Last Admin: 10/26/16 21:36 Dose: 30 units Insulin Human Lispro (Humalog) 8 units SC AC [facility] Last Admin: 10/26/16 17:10 Dose: 8 units Lidocaine (Lidoderm) 1 ea TD DAILY [facility] Last Admin: 10/26/16 09:00 Dose: Not Given Linezolid (Zyvox) 600 mg PO Q12 [facility] Last Admin: 10/26/16 21:35 Dose: 600 mg Nystatin (Nystop Topical Powder) 1 applic TOP BID [facility] Last Admin: 10/26/16 17:31 Dose: Not Given Ondansetron HCl (Zofran Inj) 4 mg IVP Q6 PRN PRN Reason: Nausea/Vomiting Last Admin: 09/19/16 10:26 Dose: 4 mg Pantoprazole Sodium (Protonix Ec Tab) 40 mg PO DAILY [facility] Last Admin: 10/26/16 08:38 Dose: 40 mg Phenylephrine HCl (Dagoberto-Synephrine 0.5% Nasal [place]) 1 spry ALLAN Q4 PRN PRN Reason: Nasal congestion Sevelamer HCl (Renagel) 1,600 mg PO TID [facility] Last Admin: 10/26/16 17:05 Dose: 1,600 mg Topiramate (Topamax) 50 mg PO BID [facility] Last Admin: 10/26/16 17:10 Dose: 50 mg Vitamin B Complex/Vit C/Folic Acid (Nephro-Ajay) 1 tab PO DAILY [facility] Last Admin: 10/26/16 08:39 Dose: 1 tab - Labs Labs: 10/25/16 09:30 10/25/16 09:30 PT 17.6 Seconds (9.8-13.1) H 10/15/16 07:00 INR 1.5 (0.9-1.2) H 10/15/16 07:00 APTT 36.6 Seconds (25.6-37.1) 10/15/16 07:00 - Constitutional Appears: Non-toxic, No Acute Distress - Respiratory Exam Respiratory Exam: Clear to Ausculation Bilateral, NORMAL BREATHING PATTERN - Cardiovascular Exam Cardiovascular Exam: REGULAR RHYTHM, +S1, +S2 - Extremities Exam Additional comments: right stump dressing CDI. Wound vac in place - Neurological Exam Neurological Exam: Alert, Awake Assessment and Plan - Assessment and Plan (Free Text) Assessment: 46 F 4 weeks s/p Right BKA and POD# 11 s/p debridement of right leg stump suture line and wound VAC placement Plan: - cont wound vac to suction - Pain control - Continue PT/OT - Plan to change wound vac on Friday. Further recs discuss with Dr. Easton Jordan, PGY1
[2016-10-27] MEDS: Pantoprazole 40 mg EC Tab PO SCH (08:32)
[2016-10-27] MEDS: Lidocaine 5% Patch TD SCH (08:32)
[2016-10-27] MEDS: Multivitamin Vitamin B Complex (Nephro-Vite) Tab PO SCH (08:34)
[2016-10-27] MEDS: Insulin Lispro (humaLOG) 100 Units/ml Inj SC SCH ×3 (08:35→17:13)
--- NOTE | 2016-10-27 14:58 | PN ---
DATE: 10/27/2016 ROOM: 663 SUBJECTIVE: This is a 46-year-old female with recent uncontrolled type 2 insulin-requiring diabetes, now being followed closely for metabolic management. Her glycemic levels are much improved at this time, especially noted postoperatively following a recent right below-knee amputation for severe unde rlying osteomyelitis. Her latest chemistry showed a BUN of 46, sodium 144, potassium 4.9, chloride 1 04, CO2 of 23, glucose 100, and creatinine 6.5. So, at this time, we will continue the same basal an d bolus insulin regimen as given with Levemir given as 30 units subQ at bedtime daily and Humalog giv en as 8 units subQ daily We will titrate incrementally as indicated to optimize metabolic contro l. We will follow. Irene Ambrose MD cc: [id number] TT: 10/27/2016 14:57:54 Confirmation # [id number] Dictation # [id number] mn
--- NOTE | 2016-10-27 15:34 | CP.PCM.PN ---
Subjective - Date & Time of Evaluation Date of Evaluation: 10/27/16 Time of Evaluation: 02:30 - Subjective Subjective: Resting in recliner Comfortable Objective - Vital Signs/Intake and Output Vital Signs (last 24 hours): Temp Pulse Resp BP Pulse Ox 98.1 F 113 H 20 142/75 98 10/27/16 08:18 10/27/16 08:18 10/27/16 08:18 10/27/16 08:18 10/27/16 08:18 - Medications Medications: Current Medications Acetaminophen (Tylenol 325mg Tab) 650 mg PO Q4 PRN PRN Reason: Fever >100.4 F Last Admin: 10/02/16 16:27 Dose: 650 mg Acetaminophen (Tylenol 325mg Tab) 650 mg PO Q4 PRN PRN Reason: Pain, moderate (4-7) Last Admin: 09/16/16 22:34 Dose: 650 mg Albuterol Sulfate (Albuterol 0.083% Inhal Barbie (2.5 Mg/3 Ml) Ud) 2.5 mg INH RQ4 PRN PRN Reason: Shortness of Breath Albuterol/Ipratropium (Duoneb 3 Mg/0.5 Mg (3 Ml) Ud) 3 ml INH RQ4 PRN PRN Reason: Shortness of Breath Apixaban (Eliquis) 5 mg PO BID [facility] PRN Reason: Protocol Last Admin: 10/27/16 08:30 Dose: 5 mg Aspirin (Ecotrin) 81 mg PO DAILY [facility] Last Admin: 10/27/16 08:41 Dose: 81 mg Atorvastatin Calcium (Lipitor) 40 mg PO DAILY [facility] Last Admin: 10/27/16 08:34 Dose: 40 mg Benzonatate (Tessalon Perles) 200 mg PO TID PRN PRN Reason: Cough Last Admin: 10/02/16 14:07 Dose: 200 mg Cinacalcet (Sensipar) 30 mg PO DAILY [facility] Last Admin: 10/27/16 08:35 Dose: 30 mg Diphenhydramine HCl (Benadryl) 25 mg PO Q6 PRN PRN Reason: Itching / Pruritus Epoetin Tha (Procrit) 20,000 unit IV MWF [facility] Last Admin: 10/25/16 08:54 Dose: 20,000 unit Ergocalciferol (Drisdol 50,000 Intl Units Cap) 1 cap PO Q7D [facility] Stop: 11/06/16 11:16 Last Admin: 10/23/16 12:19 Dose: 1 cap Fluconazole (Diflucan) 100 mg PO DAILY [facility] Last Admin: 10/27/16 08:31 Dose: 100 mg Gabapentin (Neurontin) 300 mg PO TID [facility] Last Admin: 10/27/16 12:25 Dose: 300 mg Hydrocortisone (Anusol-Hc) 1 applic [place] BID PRN PRN Reason: Inflammation Hydromorphone HCl (Dilaudid) 1 mg IVP Q3H PRN PRN Reason: Pain, severe (8-10) Last Admin: 10/27/16 09:55 Dose: 1 mg Amikacin Sulfate 250 mg/ (Sodium Chloride) 101 mls @ 100.609 mls/hr IVPB MWF [facility] Last Admin: 10/25/16 08:54 Dose: 100.609 mls/hr Meropenem 500 mg/ Sodium (Chloride) 100 mls @ 100 mls/hr IVPB DAILY@0100 [facility] Last Admin: 10/27/16 01:32 Dose: 100 mls/hr Piperacillin Sod/Tazobactam (Sod 2.25 gm/ Sodium Chloride) 100 mls @ 100 mls/ hr IVPB Q12@0600,1800 [facility] Last Admin: 10/27/16 05:58 Dose: 100 mls/hr Sodium Chloride (Sodium Chloride 0.9%) 1,000 mls @ 10 mls/hr IV .Q24H [facility] Last Admin: 10/26/16 17:32 Dose: 10 mls/hr Insulin Detemir (Levemir) 30 units SC HS [facility] Last Admin: 10/26/16 21:36 Dose: 30 units Insulin Human Lispro (Humalog) 8 units SC AC [facility] Last Admin: 10/27/16 12:30 Dose: 8 units Lidocaine (Lidoderm) 1 ea TD DAILY [facility] Last Admin: 10/27/16 08:32 Dose: 1 ea Linezolid (Zyvox) 600 mg PO Q12 [facility] Last Admin: 10/27/16 08:31 Dose: 600 mg Nystatin (Nystop Topical Powder) 1 applic TOP BID [facility] Last Admin: 10/27/16 08:33 Dose: 1 applic Ondansetron HCl (Zofran Inj) 4 mg IVP Q6 PRN PRN Reason: Nausea/Vomiting Last Admin: 09/19/16 10:26 Dose: 4 mg Pantoprazole Sodium (Protonix Ec Tab) 40 mg PO DAILY [facility] Last Admin: 10/27/16 08:32 Dose: 40 mg Phenylephrine HCl (Dagoberto-Synephrine 0.5% Nasal [place]) 1 spry ALLAN Q4 PRN PRN Reason: Nasal congestion Sevelamer HCl (Renagel) 1,600 mg PO TID [facility] Last Admin: 10/27/16 12:25 Dose: 1,600 mg Topiramate (Topamax) 50 mg PO BID [facility] Last Admin: 10/27/16 08:35 Dose: 50 mg Vitamin B Complex/Vit C/Folic Acid (Nephro-Ajay) 1 tab PO DAILY [facility] Last Admin: 10/27/16 08:34 Dose: 1 tab - Labs Labs: 10/25/16 09:30 10/25/16 09:30 PT 17.6 Seconds (9.8-13.1) H 10/15/16 07:00 INR 1.5 (0.9-1.2) H 10/15/16 07:00 APTT 36.6 Seconds (25.6-37.1) 10/15/16 07:00 - Respiratory Exam Respiratory Exam: NORMAL BREATHING PATTERN - Cardiovascular Exam Cardiovascular Exam: Tachycardia, REGULAR RHYTHM - Extremities Exam Additional comments: B/L BKA Assessment and Plan - Assessment and Plan (Free Text) Assessment: ESRD IDDM S/P recent Rt BKA Plan: Stable on dialysis. Continue HD per schedule
--- NOTE | 2016-10-27 15:46 | CP.PCM.PN ---
Subjective - Date & Time of Evaluation Date of Evaluation: 10/27/16 Time of Evaluation: 15:44 - Subjective Subjective: Notes by Tony Diaz (for Dr. Mccormack), Arnol and Anitha appreciated. Patient is sitting in recliner and is comfortable but getting tired. Appetite and elimination are good. Wound vac and knee immobilizer in place. No leakage. To be changed tomorrow. She remains afebrile - oxygen sat 97% and BP satisfactory. DM controlled. To continue on 3 iv and 2 po antibiotics while we assess healing. Fro physical therapy and hemodialysis tomorrow. Objective - Vital Signs/Intake and Output Vital Signs (last 24 hours): Temp Pulse Resp BP Pulse Ox 98.1 F 113 H 20 142/75 98 10/27/16 08:18 10/27/16 08:18 10/27/16 08:18 10/27/16 08:18 10/27/16 08:18 - Medications Medications: Current Medications Acetaminophen (Tylenol 325mg Tab) 650 mg PO Q4 PRN PRN Reason: Fever >100.4 F Last Admin: 10/02/16 16:27 Dose: 650 mg Acetaminophen (Tylenol 325mg Tab) 650 mg PO Q4 PRN PRN Reason: Pain, moderate (4-7) Last Admin: 09/16/16 22:34 Dose: 650 mg Albuterol Sulfate (Albuterol 0.083% Inhal Barbie (2.5 Mg/3 Ml) Ud) 2.5 mg INH RQ4 PRN PRN Reason: Shortness of Breath Albuterol/Ipratropium (Duoneb 3 Mg/0.5 Mg (3 Ml) Ud) 3 ml INH RQ4 PRN PRN Reason: Shortness of Breath Apixaban (Eliquis) 5 mg PO BID JASPER PRN Reason: Protocol Last Admin: 10/27/16 08:30 Dose: 5 mg Aspirin (Ecotrin) 81 mg PO DAILY [facility] Last Admin: 10/27/16 08:41 Dose: 81 mg Atorvastatin Calcium (Lipitor) 40 mg PO DAILY [facility] Last Admin: 10/27/16 08:34 Dose: 40 mg Benzonatate (Tessalon Perles) 200 mg PO TID PRN PRN Reason: Cough Last Admin: 10/02/16 14:07 Dose: 200 mg Cinacalcet (Sensipar) 30 mg PO DAILY [facility] Last Admin: 10/27/16 08:35 Dose: 30 mg Diphenhydramine HCl (Benadryl) 25 mg PO Q6 PRN PRN Reason: Itching / Pruritus Epoetin Tha (Procrit) 20,000 unit IV MWF [facility] Last Admin: 10/25/16 08:54 Dose: 20,000 unit Ergocalciferol (Drisdol 50,000 Intl Units Cap) 1 cap PO Q7D [facility] Stop: 11/06/16 11:16 Last Admin: 10/23/16 12:19 Dose: 1 cap Fluconazole (Diflucan) 100 mg PO DAILY [facility] Last Admin: 10/27/16 08:31 Dose: 100 mg Gabapentin (Neurontin) 300 mg PO TID [facility] Last Admin: 10/27/16 12:25 Dose: 300 mg Hydrocortisone (Anusol-Hc) 1 applic OR BID PRN PRN Reason: Inflammation Hydromorphone HCl (Dilaudid) 1 mg IVP Q3H PRN PRN Reason: Pain, severe (8-10) Last Admin: 10/27/16 09:55 Dose: 1 mg Amikacin Sulfate 250 mg/ (Sodium Chloride) 101 mls @ 100.609 mls/hr [place] [facility] [place] Last Admin: 10/25/16 08:54 Dose: 100.609 mls/hr Meropenem 500 mg/ Sodium (Chloride) 100 mls @ 100 mls/hr IVPB DAILY@0100 [facility] Last Admin: 10/27/16 01:32 Dose: 100 mls/hr Piperacillin Sod/Tazobactam (Sod 2.25 gm/ Sodium Chloride) 100 mls @ 100 mls/ hr IVPB Q12@0600,1800 [facility] Last Admin: 10/27/16 05:58 Dose: 100 mls/hr Sodium Chloride (Sodium Chloride 0.9%) 1,000 mls @ 10 mls/hr IV .Q24H [facility] Last Admin: 10/26/16 17:32 Dose: 10 mls/hr Insulin Detemir (Levemir) 30 units SC HS [facility] Last Admin: 10/26/16 21:36 Dose: 30 units Insulin Human Lispro (Humalog) 8 units SC AC [facility] Last Admin: 10/27/16 12:30 Dose: 8 units Lidocaine (Lidoderm) 1 ea TD DAILY [facility] Last Admin: 10/27/16 08:32 Dose: 1 ea Linezolid (Zyvox) 600 mg PO Q12 [facility] Last Admin: 10/27/16 08:31 Dose: 600 mg Nystatin (Nystop Topical Powder) 1 applic TOP BID [facility] Last Admin: 10/27/16 08:33 Dose: 1 applic Ondansetron HCl (Zofran Inj) 4 mg IVP Q6 PRN PRN Reason: Nausea/Vomiting Last Admin: 09/19/16 10:26 Dose: 4 mg Pantoprazole Sodium (Protonix Ec Tab) 40 mg PO DAILY [facility] Last Admin: 10/27/16 08:32 Dose: 40 mg Phenylephrine HCl (Dagoberto-Synephrine 0.5% Nasal [place]) 1 spry ALLAN Q4 PRN PRN Reason: Nasal congestion Sevelamer HCl (Renagel) 1,600 mg PO TID [facility] Last Admin: 10/27/16 12:25 Dose: 1,600 mg Topiramate (Topamax) 50 mg PO BID [facility] Last Admin: 10/27/16 08:35 Dose: 50 mg Vitamin B Complex/Vit C/Folic Acid (Nephro-Ajay) 1 tab PO DAILY [facility] Last Admin: 10/27/16 08:34 Dose: 1 tab - Labs Labs: 10/25/16 09:30 10/25/16 09:30 PT 17.6 Seconds (9.8-13.1) H 10/15/16 07:00 INR 1.5 (0.9-1.2) H 10/15/16 07:00 APTT 36.6 Seconds (25.6-37.1) 10/15/16 07:00 - Constitutional Appears: No Acute Distress - Head Exam Head Exam: NORMAL INSPECTION - Eye Exam Eye Exam: Normal appearance - ENT Exam ENT Exam: Mucous Membranes Moist - Neck Exam Neck Exam: Normal Inspection - Respiratory Exam Respiratory Exam: Clear to Ausculation Bilateral, NORMAL BREATHING PATTERN - Cardiovascular Exam Cardiovascular Exam: REGULAR RHYTHM, +S1, +S2 - GI/Abdominal Exam GI & Abdominal Exam: Soft - Extremities Exam Additional comments: Dressing intact and dry R Bk amputation site. Left knee has minimal opening. R patella with medihoney dressing. picc line left femoral vein intact. Hands as before. - Back Exam Back Exam: NORMAL INSPECTION - Neurological Exam Neurological Exam: Alert, Awake, CN II-XII Intact, Oriented x3 - Psychiatric Exam Psychiatric exam: Normal Affect, Normal Mood - Skin Skin Exam: Dry, Warm Assessment and Plan (1) Status post below knee amputation of right lower extremity Status: Acute (2) Osteomyelitis of ankle or foot Status: Acute (3) ESRD (end stage renal disease) on dialysis Status: Chronic (4) DM type 2 (diabetes mellitus, type 2) Status: Chronic (5) Coagulopathy Status: Chronic (6) Anemia, blood loss Status: Acute (7) Peripheral arterial occlusive disease Status: Chronic
[2016-10-27] MEDS: Sodium Chloride 0.9% 1,000 ML IV SCH (16:45)
[2016-10-27] MEDS: Insulin Detemir 100 Units/ml Inj SC SCH (21:44)
[2016-10-28] MEDS: Meropenem 500 MG in Sodium Chloride 0.9% 100 ML IVPB SCH (00:40)
--- NOTE | 2016-10-28 07:40 | CP.PCM.PN ---
<DaríoAshlySandra - Last Filed: 10/28/16 07:38> Subjective - Date & Time of Evaluation Date of Evaluation: 10/28/16 Time of Evaluation: 07:15 - Subjective Subjective: SURGERY PROGRESS NOTE FOR DR. MCCORMACK 46F seen and examined at bedside. Dressings cdi. No strikethrough, wound VAC functioning with 150cc collection. Patient due for HD today Objective - Vital Signs/Intake and Output Vital Signs (last 24 hours): Temp Pulse Resp BP Pulse Ox 97.7 F 114 H 18 142/76 97 10/28/16 07:31 10/28/16 07:31 10/28/16 07:31 10/28/16 07:31 10/28/16 07:31 - Medications Medications: Current Medications Acetaminophen (Tylenol 325mg Tab) 650 mg PO Q4 PRN PRN Reason: Fever >100.4 F Last Admin: 10/02/16 16:27 Dose: 650 mg Acetaminophen (Tylenol 325mg Tab) 650 mg PO Q4 PRN PRN Reason: Pain, moderate (4-7) Last Admin: 09/16/16 22:34 Dose: 650 mg Albuterol Sulfate (Albuterol 0.083% Inhal Barbie (2.5 Mg/3 Ml) Ud) 2.5 mg INH RQ4 PRN PRN Reason: Shortness of Breath Albuterol/Ipratropium (Duoneb 3 Mg/0.5 Mg (3 Ml) Ud) 3 ml INH RQ4 PRN PRN Reason: Shortness of Breath Apixaban (Eliquis) 5 mg PO BID JASPER PRN Reason: Protocol Last Admin: 10/27/16 17:12 Dose: 5 mg Aspirin (Ecotrin) 81 mg PO DAILY [facility] Last Admin: 10/27/16 08:41 Dose: 81 mg Atorvastatin Calcium (Lipitor) 40 mg PO DAILY [facility] Last Admin: 10/27/16 08:34 Dose: 40 mg Benzonatate (Tessalon Perles) 200 mg PO TID PRN PRN Reason: Cough Last Admin: 10/02/16 14:07 Dose: 200 mg Cinacalcet (Sensipar) 30 mg PO DAILY [facility] Last Admin: 10/27/16 08:35 Dose: 30 mg Diphenhydramine HCl (Benadryl) 25 mg PO Q6 PRN PRN Reason: Itching / Pruritus Epoetin Tha (Procrit) 20,000 unit IV MWF [facility] Last Admin: 10/25/16 08:54 Dose: 20,000 unit Ergocalciferol (Drisdol 50,000 Intl Units Cap) 1 cap PO Q7D [facility] Stop: 11/06/16 11:16 Last Admin: 10/23/16 12:19 Dose: 1 cap Fluconazole (Diflucan) 100 mg PO DAILY [facility] Last Admin: 10/27/16 08:31 Dose: 100 mg Gabapentin (Neurontin) 300 mg PO TID [facility] Last Admin: 10/27/16 17:13 Dose: 300 mg Hydrocortisone (Anusol-Hc) 1 applic [place] BID PRN PRN Reason: Inflammation Hydromorphone HCl (Dilaudid) 1 mg IVP Q3H PRN PRN Reason: Pain, severe (8-10) Last Admin: 10/28/16 05:20 Dose: 1 mg Amikacin Sulfate 250 mg/ (Sodium Chloride) 101 mls @ 100.609 mls/hr IVPB [facility] Last Admin: 10/25/16 08:54 Dose: 100.609 mls/hr Meropenem 500 mg/ Sodium (Chloride) 100 mls @ 100 mls/hr IVPB DAILY@0100 [facility] Last Admin: 10/28/16 00:40 Dose: 100 mls/hr Piperacillin Sod/Tazobactam (Sod 2.25 gm/ Sodium Chloride) 100 mls @ 100 mls/ hr IVPB Q12@0600,1800 [facility] Last Admin: 10/28/16 05:20 Dose: 100 mls/hr Sodium Chloride (Sodium Chloride 0.9%) 1,000 mls @ 10 mls/hr IV .Q24H [facility] Last Admin: 10/27/16 16:45 Dose: Not Given Insulin Detemir (Levemir) 30 units SC HS [facility] Last Admin: 10/27/16 21:44 Dose: 30 units Insulin Human Lispro (Humalog) 8 units SC AC [facility] Last Admin: 10/27/16 17:13 Dose: 8 units Lidocaine (Lidoderm) 1 ea TD DAILY [facility] Last Admin: 10/27/16 08:32 Dose: 1 ea Linezolid (Zyvox) 600 mg PO Q12 [facility] Last Admin: 10/27/16 21:44 Dose: 600 mg Nystatin (Nystop Topical Powder) 1 applic TOP BID [facility] Last Admin: 10/27/16 17:12 Dose: 1 applic Ondansetron HCl (Zofran Inj) 4 mg IVP Q6 PRN PRN Reason: Nausea/Vomiting Last Admin: 09/19/16 10:26 Dose: 4 mg Pantoprazole Sodium (Protonix Ec Tab) 40 mg PO DAILY [facility] Last Admin: 10/27/16 08:32 Dose: 40 mg Phenylephrine HCl (Dagoberto-Synephrine 0.5% Nasal [place]) 1 spry ALLAN Q4 PRN PRN Reason: Nasal congestion Sevelamer HCl (Renagel) 1,600 mg PO TID [facility] Last Admin: 10/27/16 17:14 Dose: 1,600 mg Topiramate (Topamax) 50 mg PO BID [facility] Last Admin: 10/27/16 17:15 Dose: 50 mg Vitamin B Complex/Vit C/Folic Acid (Nephro-Ajay) 1 tab PO DAILY [facility] Last Admin: 10/27/16 08:34 Dose: 1 tab - Labs Labs: 10/25/16 09:30 10/25/16 09:30 PT 17.6 Seconds (9.8-13.1) H 10/15/16 07:00 INR 1.5 (0.9-1.2) H 10/15/16 07:00 APTT 36.6 Seconds (25.6-37.1) 10/15/16 07:00 - Constitutional Appears: Well, Non-toxic, No Acute Distress - Extremities Exam Additional comments: Bilateral bka. Wound VAC to right stump. No strikethrough noted - Neurological Exam Neurological Exam: Alert, Awake, Oriented x3 - Psychiatric Exam Psychiatric exam: Normal Affect, Normal Mood - Skin Skin Exam: Normal Color, Warm Assessment and Plan - Assessment and Plan (Free Text) Assessment: 46 F 4 weeks s/p Right BKA and POD# 13 s/p debridement of right leg stump with wound VAC placement Plan: Wound VAC intact, function Pain control Continue PT/OT Plan to change wound vac bedside today with Dr. Mccormack <Raffy Mccormack - Last Filed: 10/28/16 17:23> Subjective - Subjective Subjective: Patient seen and examined. There are no immediate issues or complaints this afternoon. Patient is afebrile with stable vital signs. There is no pain involving right BKA stump. VAC is on and is working well. Continue current treatment. Will plan to change VAC and examine the wound tomorrow at the bedside. Objective - Vital Signs/Intake and Output Vital Signs (last 24 hours): Temp Pulse Resp BP Pulse Ox 97.5 F L 115 H 18 117/69 96 10/28/16 16:32 10/28/16 16:32 10/28/16 16:32 10/28/16 16:32 10/28/16 16:32 - Medications Medications: Current Medications Acetaminophen (Tylenol 325mg Tab) 650 mg PO Q4 PRN PRN Reason: Fever >100.4 F Last Admin: 10/02/16 16:27 Dose: 650 mg Acetaminophen (Tylenol 325mg Tab) 650 mg PO Q4 PRN PRN Reason: Pain, moderate (4-7) Last Admin: 09/16/16 22:34 Dose: 650 mg Albuterol Sulfate (Albuterol 0.083% Inhal Barbie (2.5 Mg/3 Ml) Ud) 2.5 mg INH RQ4 PRN PRN Reason: Shortness of Breath Albuterol/Ipratropium (Duoneb 3 Mg/0.5 Mg (3 Ml) Ud) 3 ml INH RQ4 PRN PRN Reason: Shortness of Breath Apixaban (Eliquis) 5 mg PO BID [facility] PRN Reason: Protocol Last Admin: 10/28/16 08:24 Dose: 5 mg Aspirin (Ecotrin) 81 mg PO DAILY [facility] Last Admin: 10/28/16 08:25 Dose: 81 mg Atorvastatin Calcium (Lipitor) 40 mg PO DAILY [facility] Last Admin: 10/28/16 08:24 Dose: 40 mg Benzonatate (Tessalon Perles) 200 mg PO TID PRN PRN Reason: Cough Last Admin: 10/02/16 14:07 Dose: 200 mg Cinacalcet (Sensipar) 30 mg PO DAILY [facility] Last Admin: 10/28/16 08:22 Dose: 30 mg Diphenhydramine HCl (Benadryl) 25 mg PO Q6 PRN PRN Reason: Itching / Pruritus Epoetin Tha (Procrit) 20,000 unit IV MWF [facility] Last Admin: 10/28/16 08:21 Dose: 20,000 unit Ergocalciferol (Drisdol 50,000 Intl Units Cap) 1 cap PO Q7D [facility] Stop: 11/06/16 11:16 Last Admin: 10/23/16 12:19 Dose: 1 cap Fluconazole (Diflucan) 100 mg PO DAILY [facility] Last Admin: 10/28/16 08:21 Dose: 100 mg Gabapentin (Neurontin) 300 mg PO TID [facility] Last Admin: 10/28/16 12:28 Dose: 300 mg Hydrocortisone (Anusol-Hc) 1 applic MS BID PRN PRN Reason: Inflammation Hydromorphone HCl (Dilaudid) 1 mg IVP Q3H PRN PRN Reason: Pain, severe (8-10) Last Admin: 10/28/16 17:05 Dose: 1 mg Amikacin Sulfate 250 mg/ (Sodium Chloride) 101 mls @ 100.609 mls/hr IVPB MWF [facility] Last Admin: 10/28/16 08:21 Dose: 100.609 mls/hr Meropenem 500 mg/ Sodium (Chloride) 100 mls @ 100 mls/hr IVPB DAILY@0100 [facility] Last Admin: 10/28/16 00:40 Dose: 100 mls/hr Piperacillin Sod/Tazobactam (Sod 2.25 gm/ Sodium Chloride) 100 mls @ 100 mls/ hr IVPB Q12@0600,1800 [facility] Last Admin: 10/28/16 05:20 Dose: 100 mls/hr Sodium Chloride (Sodium Chloride 0.9%) 1,000 mls @ 10 mls/hr IV .Q24H [facility] Last Admin: 10/27/16 16:45 Dose: Not Given Insulin Detemir (Levemir) 30 units SC HS [facility] Last Admin: 10/27/16 21:44 Dose: 30 units Insulin Human Lispro (Humalog) 8 units SC AC [facility] Last Admin: 10/28/16 12:29 Dose: 8 units Lidocaine (Lidoderm) 1 ea TD DAILY [facility] Last Admin: 10/28/16 08:26 Dose: 1 ea Linezolid (Zyvox) 600 mg PO Q12 [facility] Last Admin: 10/28/16 08:24 Dose: 600 mg Nystatin (Nystop Topical Powder) 1 applic TOP BID [facility] Last Admin: 10/28/16 08:22 Dose: 1 applic Ondansetron HCl (Zofran Inj) 4 mg IVP Q6 PRN PRN Reason: Nausea/Vomiting Last Admin: 09/19/16 10:26 Dose: 4 mg Pantoprazole Sodium (Protonix Ec Tab) 40 mg PO DAILY [facility] Last Admin: 10/28/16 08:24 Dose: 40 mg Phenylephrine HCl (Dagoberto-Synephrine 0.5% Nasal [place]) 1 spry ALLAN Q4 PRN PRN Reason: Nasal congestion Sevelamer HCl (Renagel) 1,600 mg PO TID [facility] Last Admin: 10/28/16 12:28 Dose: 1,600 mg Topiramate (Topamax) 50 mg PO BID [facility] Last Admin: 10/28/16 08:25 Dose: 50 mg Vitamin B Complex/Vit C/Folic Acid (Nephro-Ajay) 1 tab PO DAILY [facility] Last Admin: 10/28/16 08:24 Dose: 1 tab - Labs Labs: 10/25/16 09:30 10/25/16 09:30 PT 17.6 Seconds (9.8-13.1) H 10/15/16 07:00 INR 1.5 (0.9-1.2) H 10/15/16 07:00 APTT 36.6 Seconds (25.6-37.1) 10/15/16 07:00
[2016-10-28] MEDS: Epoetin Alfa 20000 UNIT/ML Inj IV SCH (08:21)
[2016-10-28] MEDS: Pantoprazole 40 mg EC Tab PO SCH (08:24)
[2016-10-28] MEDS: Multivitamin Vitamin B Complex (Nephro-Vite) Tab PO SCH (08:24)
[2016-10-28] MEDS: Insulin Lispro (humaLOG) 100 Units/ml Inj SC SCH ×3 (08:25→17:21)
[2016-10-28] MEDS: Lidocaine 5% Patch TD SCH (08:26)
--- NOTE | 2016-10-28 11:18 | CP.PCM.PN ---
Subjective - Date & Time of Evaluation Date of Evaluation: 10/28/16 Time of Evaluation: 11:16 - Subjective Subjective: see my assessment and plan at the end Objective - Vital Signs/Intake and Output Vital Signs (last 24 hours): Temp Pulse Resp BP Pulse Ox 97.7 F 114 H 18 142/76 97 10/28/16 07:31 10/28/16 07:31 10/28/16 07:31 10/28/16 07:31 10/28/16 07:31 - Medications Medications: Current Medications Acetaminophen (Tylenol 325mg Tab) 650 mg PO Q4 PRN PRN Reason: Fever >100.4 F Last Admin: 10/02/16 16:27 Dose: 650 mg Acetaminophen (Tylenol 325mg Tab) 650 mg PO Q4 PRN PRN Reason: Pain, moderate (4-7) Last Admin: 09/16/16 22:34 Dose: 650 mg Albuterol Sulfate (Albuterol 0.083% Inhal Barbie (2.5 Mg/3 Ml) Ud) 2.5 mg INH RQ4 PRN PRN Reason: Shortness of Breath Albuterol/Ipratropium (Duoneb 3 Mg/0.5 Mg (3 Ml) Ud) 3 ml INH RQ4 PRN PRN Reason: Shortness of Breath Apixaban (Eliquis) 5 mg PO BID [facility] PRN Reason: Protocol Last Admin: 10/28/16 08:24 Dose: 5 mg Aspirin (Ecotrin) 81 mg PO DAILY [facility] Last Admin: 10/28/16 08:25 Dose: 81 mg Atorvastatin Calcium (Lipitor) 40 mg PO DAILY [facility] Last Admin: 10/28/16 08:24 Dose: 40 mg Benzonatate (Tessalon Perles) 200 mg PO TID PRN PRN Reason: Cough Last Admin: 10/02/16 14:07 Dose: 200 mg Cinacalcet (Sensipar) 30 mg PO DAILY [facility] Last Admin: 10/28/16 08:22 Dose: 30 mg Diphenhydramine HCl (Benadryl) 25 mg PO Q6 PRN PRN Reason: Itching / Pruritus Epoetin Tha (Procrit) 20,000 unit IV MWF [facility] Last Admin: 10/28/16 08:21 Dose: 20,000 unit Ergocalciferol (Drisdol 50,000 Intl Units Cap) 1 cap PO Q7D [facility] Stop: 11/06/16 11:16 Last Admin: 10/23/16 12:19 Dose: 1 cap Fluconazole (Diflucan) 100 mg PO DAILY [facility] Last Admin: 10/28/16 08:21 Dose: 100 mg Gabapentin (Neurontin) 300 mg PO TID [facility] Last Admin: 10/28/16 08:22 Dose: 300 mg Hydrocortisone (Anusol-Hc) 1 applic [place] BID PRN PRN Reason: Inflammation Hydromorphone HCl (Dilaudid) 1 mg IVP Q3H PRN PRN Reason: Pain, severe (8-10) Last Admin: 10/28/16 09:41 Dose: 1 mg Amikacin Sulfate 250 mg/ (Sodium Chloride) 101 mls @ 100.609 mls/hr IVPB MWF [facility] Last Admin: 10/28/16 08:21 Dose: 100.609 mls/hr Meropenem 500 mg/ Sodium (Chloride) 100 mls @ 100 mls/hr IVPB DAILY@0100 [facility] Last Admin: 10/28/16 00:40 Dose: 100 mls/hr Piperacillin Sod/Tazobactam (Sod 2.25 gm/ Sodium Chloride) 100 mls @ 100 mls/ hr IVPB Q12@0600,1800 [facility] Last Admin: 10/28/16 05:20 Dose: 100 mls/hr Sodium Chloride (Sodium Chloride 0.9%) 1,000 mls @ 10 mls/hr IV .Q24H [facility] Last Admin: 10/27/16 16:45 Dose: Not Given Insulin Detemir (Levemir) 30 units SC HS [facility] Last Admin: 10/27/16 21:44 Dose: 30 units Insulin Human Lispro (Humalog) 8 units SC AC [facility] Last Admin: 10/28/16 08:25 Dose: 8 units Lidocaine (Lidoderm) 1 ea TD DAILY [facility] Last Admin: 10/28/16 08:26 Dose: 1 ea Linezolid (Zyvox) 600 mg PO Q12 [facility] Last Admin: 10/28/16 08:24 Dose: 600 mg Nystatin (Nystop Topical Powder) 1 applic TOP BID [facility] Last Admin: 10/28/16 08:22 Dose: 1 applic Ondansetron HCl (Zofran Inj) 4 mg IVP Q6 PRN PRN Reason: Nausea/Vomiting Last Admin: 09/19/16 10:26 Dose: 4 mg Pantoprazole Sodium (Protonix Ec Tab) 40 mg PO DAILY [facility] Last Admin: 10/28/16 08:24 Dose: 40 mg Phenylephrine HCl (Dagoberto-Synephrine 0.5% Nasal [place]) 1 spry ALLAN Q4 PRN PRN Reason: Nasal congestion Sevelamer HCl (Renagel) 1,600 mg PO TID [facility] Last Admin: 10/28/16 08:22 Dose: 1,600 mg Topiramate (Topamax) 50 mg PO BID [facility] Last Admin: 10/28/16 08:25 Dose: 50 mg Vitamin B Complex/Vit C/Folic Acid (Nephro-Ajay) 1 tab PO DAILY [facility] Last Admin: 10/28/16 08:24 Dose: 1 tab - Labs Labs: 10/25/16 09:30 10/25/16 09:30 PT 17.6 Seconds (9.8-13.1) H 10/15/16 07:00 INR 1.5 (0.9-1.2) H 10/15/16 07:00 APTT 36.6 Seconds (25.6-37.1) 10/15/16 07:00 Assessment and Plan (1) ESRD (end stage renal disease) Assessment & Plan: She was seen on hemodialysis Vital sign noted to be stable with blood pressure 145 x 90 at this time Ultrafiltration goal approximately 3500 mL if tolerated Potassium bath 2 mEq Bicarbonate bath 34 Patient tolerating chemotherapy very well no cramping reported Patient is awake and conscious The plan and the problem Continue hemodialysis and antibiotics And the diagnosis as noted in my previous note has not been changed continue to monitor In summary Status post below knee amputation on the right also status post debridement on the stump Intravenous antibiotics as per primary team White count normal hemoglobin is acceptable as noted End stage renal disease continue dialysis MWF Status: Chronic (2) Cellulitis of leg Status: Chronic
--- NOTE | 2016-10-28 11:48 | CP.PCM.PN ---
Subjective - Date & Time of Evaluation Date of Evaluation: 10/28/16 Time of Evaluation: 11:46 - Subjective Subjective: Patient just completed hemodialysis. She is comfortable, awaiting Dr. Mccormack and Ben Nails RN, for dressing change R BK amputation wound vac. DM controlled. Antibiotics renewsed. No bleeding. Objective - Vital Signs/Intake and Output Vital Signs (last 24 hours): Temp Pulse Resp BP Pulse Ox 97.7 F 114 H 18 142/76 97 10/28/16 07:31 10/28/16 07:31 10/28/16 07:31 10/28/16 07:31 10/28/16 07:31 - Medications Medications: Current Medications Acetaminophen (Tylenol 325mg Tab) 650 mg PO Q4 PRN PRN Reason: Fever >100.4 F Last Admin: 10/02/16 16:27 Dose: 650 mg Acetaminophen (Tylenol 325mg Tab) 650 mg PO Q4 PRN PRN Reason: Pain, moderate (4-7) Last Admin: 09/16/16 22:34 Dose: 650 mg Albuterol Sulfate (Albuterol 0.083% Inhal Barbie (2.5 Mg/3 Ml) Ud) 2.5 mg INH RQ4 PRN PRN Reason: Shortness of Breath Albuterol/Ipratropium (Duoneb 3 Mg/0.5 Mg (3 Ml) Ud) 3 ml INH RQ4 PRN PRN Reason: Shortness of Breath Apixaban (Eliquis) 5 mg PO BID [facility] PRN Reason: Protocol Last Admin: 10/28/16 08:24 Dose: 5 mg Aspirin (Ecotrin) 81 mg PO DAILY [facility] Last Admin: 10/28/16 08:25 Dose: 81 mg Atorvastatin Calcium (Lipitor) 40 mg PO DAILY [facility] Last Admin: 10/28/16 08:24 Dose: 40 mg Benzonatate (Tessalon Perles) 200 mg PO TID PRN PRN Reason: Cough Last Admin: 10/02/16 14:07 Dose: 200 mg Cinacalcet (Sensipar) 30 mg PO DAILY [facility] Last Admin: 10/28/16 08:22 Dose: 30 mg Diphenhydramine HCl (Benadryl) 25 mg PO Q6 PRN PRN Reason: Itching / Pruritus Epoetin Tha (Procrit) 20,000 unit IV MWF [facility] Last Admin: 10/28/16 08:21 Dose: 20,000 unit Ergocalciferol (Drisdol 50,000 Intl Units Cap) 1 cap PO Q7D [facility] Stop: 11/06/16 11:16 Last Admin: 10/23/16 12:19 Dose: 1 cap Fluconazole (Diflucan) 100 mg PO DAILY [facility] Last Admin: 10/28/16 08:21 Dose: 100 mg Gabapentin (Neurontin) 300 mg PO TID [facility] Last Admin: 10/28/16 08:22 Dose: 300 mg Hydrocortisone (Anusol-Hc) 1 applic [place] BID PRN PRN Reason: Inflammation Hydromorphone HCl (Dilaudid) 1 mg IVP Q3H PRN PRN Reason: Pain, severe (8-10) Last Admin: 10/28/16 09:41 Dose: 1 mg Amikacin Sulfate 250 mg/ (Sodium Chloride) 101 mls @ 100.609 [facility]ls[facility] Last Admin: 10/28/16 08:21 Dose: 100.609 mls/hr Meropenem 500 mg/ Sodium (Chloride) 100 mls @ 100 mls/hr IVPB DAILY@0100 [facility] Last Admin: 10/28/16 00:40 Dose: 100 mls/hr Piperacillin Sod/Tazobactam (Sod 2.25 gm/ Sodium Chloride) 100 mls @ 100 mls/ hr IVPB Q12@0600,1800 [facility] Last Admin: 10/28/16 05:20 Dose: 100 mls/hr Sodium Chloride (Sodium Chloride 0.9%) 1,000 mls @ 10 mls/hr IV .Q24H [facility] Last Admin: 10/27/16 16:45 Dose: Not Given Insulin Detemir (Levemir) 30 units SC HS [facility] Last Admin: 10/27/16 21:44 Dose: 30 units Insulin Human Lispro (Humalog) 8 units SC AC [facility] Last Admin: 10/28/16 08:25 Dose: 8 units Lidocaine (Lidoderm) 1 ea TD DAILY [facility] Last Admin: 10/28/16 08:26 Dose: 1 ea Linezolid (Zyvox) 600 mg PO Q12 [facility] Last Admin: 10/28/16 08:24 Dose: 600 mg Nystatin (Nystop Topical Powder) 1 applic TOP BID [facility] Last Admin: 10/28/16 08:22 Dose: 1 applic Ondansetron HCl (Zofran Inj) 4 mg IVP Q6 PRN PRN Reason: Nausea/Vomiting Last Admin: 09/19/16 10:26 Dose: 4 mg Pantoprazole Sodium (Protonix Ec Tab) 40 mg PO DAILY [facility] Last Admin: 10/28/16 08:24 Dose: 40 mg Phenylephrine HCl (Dagoberto-Synephrine 0.5% Nasal [place]) 1 spry ALLAN Q4 PRN PRN Reason: Nasal congestion Sevelamer HCl (Renagel) 1,600 mg PO TID [facility] Last Admin: 10/28/16 08:22 Dose: 1,600 mg Topiramate (Topamax) 50 mg PO BID [facility] Last Admin: 10/28/16 08:25 Dose: 50 mg Vitamin B Complex/Vit C/Folic Acid (Nephro-Ajay) 1 tab PO DAILY [facility] Last Admin: 10/28/16 08:24 Dose: 1 tab - Labs Labs: 10/25/16 09:30 10/25/16 09:30 PT 17.6 Seconds (9.8-13.1) H 10/15/16 07:00 INR 1.5 (0.9-1.2) H 10/15/16 07:00 APTT 36.6 Seconds (25.6-37.1) 10/15/16 07:00 - Head Exam Head Exam: NORMAL INSPECTION - Eye Exam Eye Exam: Normal appearance - ENT Exam ENT Exam: Mucous Membranes Moist - Neck Exam Neck Exam: Normal Inspection Additional comments: R subcleavian Permacath intact. - Respiratory Exam Respiratory Exam: Clear to Ausculation Bilateral, NORMAL BREATHING PATTERN - Cardiovascular Exam Cardiovascular Exam: REGULAR RHYTHM, +S1, +S2 - GI/Abdominal Exam GI & Abdominal Exam: Soft - Extremities Exam Additional comments: L femoral PICC line intact. R BK wound vac in place. No leakage, Minimal drainage. Otherwise unchanged. - Back Exam Back Exam: NORMAL INSPECTION - Neurological Exam Neurological Exam: Alert, Awake, Oriented x3 - Psychiatric Exam Psychiatric exam: Normal Affect, Normal Mood - Skin Skin Exam: Dry, Normal Color, Warm Assessment and Plan (1) Status post below knee amputation of right lower extremity Assessment & Plan: The focus is on wound healing and physical occupational therapy. Not yet ready for acute rehab. Status: Acute (2) Osteomyelitis of ankle or foot Status: Acute (3) ESRD (end stage renal disease) on dialysis Status: Chronic (4) DM type 2 (diabetes mellitus, type 2) Status: Chronic (5) Coagulopathy Status: Chronic (6) Anemia, blood loss Status: Acute (7) Peripheral arterial occlusive disease Status: Chronic
--- NOTE | 2016-10-28 16:33 | PN ---
DATE: 10/28/2016 ROOM: 663 This is a 46-year-old female with recent uncontrolled type 2 insulin-requiring diabetes, now being fo llowed closely for metabolic management. Her glycemic levels are fluctuating, but much improved at t his time and especially noted postoperatively following a recent right below-knee amputation for unde rlying osteomyelitis and peripheral arterial disease and vasculopathy. Her latest chemistry showed a BUN of 46, sodium 144, potassium 4.9, chloride 104, CO2 of 23, glucose 100, and creatinine 6.5. So, at this time, we will continue the same basal and bolus insulin regimen as given with Levemir given as 30 units subQ at bedtime daily and Humalog given as 6 units subQ t.i.d. before meals as ordered. We will titrate incrementally as indicated to optimize metabolic control. We will follow . Irene Ambrose MD cc: [phone] TT: 10/28/2016 16:32:50 Confirmation # [id number] Dictation # [id number] russell
[2016-10-28] MEDS: Sodium Chloride 0.9% 1,000 ML IV SCH (17:52)
--- NOTE | 2016-10-28 21:40 | CP.PCM.PN ---
Subjective - Date & Time of Evaluation Date of Evaluation: 10/28/16 Time of Evaluation: 21:35 - Subjective Subjective: She received her Hemodialysis and there is no complaints. She is stable. Her wound is clean and is well drained by the local Vacuum at the stump of the Right BKA. Vital signs are normal. There is no seizures. She is followed by Endocrinology for her DM. She has no seizures on Topamax 50 mg BID. She is interactive and is talking. Objective - Vital Signs/Intake and Output Vital Signs (last 24 hours): Temp Pulse Resp BP Pulse Ox 97.5 F L 115 H 18 117/69 96 10/28/16 16:32 10/28/16 16:32 10/28/16 16:32 10/28/16 16:32 10/28/16 16:32 - Medications Medications: Current Medications Acetaminophen (Tylenol 325mg Tab) 650 mg PO Q4 PRN PRN Reason: Fever >100.4 F Last Admin: 10/02/16 16:27 Dose: 650 mg Acetaminophen (Tylenol 325mg Tab) 650 mg PO Q4 PRN PRN Reason: Pain, moderate (4-7) Last Admin: 09/16/16 22:34 Dose: 650 mg Albuterol Sulfate (Albuterol 0.083% Inhal Barbie (2.5 Mg/3 Ml) Ud) 2.5 mg INH RQ4 PRN PRN Reason: Shortness of Breath Albuterol/Ipratropium (Duoneb 3 Mg/0.5 Mg (3 Ml) Ud) 3 ml INH RQ4 PRN PRN Reason: Shortness of Breath Apixaban (Eliquis) 5 mg PO BID [facility] PRN Reason: Protocol Last Admin: 10/28/16 17:22 Dose: 5 mg Aspirin (Ecotrin) 81 mg PO DAILY [facility] Last Admin: 10/28/16 08:25 Dose: 81 mg Atorvastatin Calcium (Lipitor) 40 mg PO DAILY [facility] Last Admin: 10/28/16 08:24 Dose: 40 mg Benzonatate (Tessalon Perles) 200 mg PO TID PRN PRN Reason: Cough Last Admin: 10/02/16 14:07 Dose: 200 mg Cinacalcet (Sensipar) 30 mg PO DAILY [facility] Last Admin: 10/28/16 08:22 Dose: 30 mg Diphenhydramine HCl (Benadryl) 25 mg PO Q6 PRN PRN Reason: Itching / Pruritus Epoetin Tha (Procrit) 20,000 unit IV MWF [facility] Last Admin: 10/28/16 08:21 Dose: 20,000 unit Ergocalciferol (Drisdol 50,000 Intl Units Cap) 1 cap PO Q7D [facility] Stop: 11/06/16 11:16 Last Admin: 10/23/16 12:19 Dose: 1 cap Fluconazole (Diflucan) 100 mg PO DAILY [facility] Last Admin: 10/28/16 08:21 Dose: 100 mg Gabapentin (Neurontin) 300 mg PO TID [facility] Last Admin: 10/28/16 17:21 Dose: 300 mg Hydrocortisone (Anusol-Hc) 1 applic [place] BID PRN PRN Reason: Inflammation Hydromorphone HCl (Dilaudid) 1 mg IVP Q3H PRN PRN Reason: Pain, severe (8-10) Last Admin: 10/28/16 17:05 Dose: 1 mg Amikacin Sulfate 250 mg/ (Sodium Chloride) 101 mls @ 100.609 [facility]ls[facility] Last Admin: 10/28/16 08:21 Dose: 100.609 mls/hr Meropenem 500 mg/ Sodium (Chloride) 100 mls @ 100 mls/hr IVPB DAILY@0100 [facility] Last Admin: 10/28/16 00:40 Dose: 100 mls/hr Piperacillin Sod/Tazobactam (Sod 2.25 gm/ Sodium Chloride) 100 mls @ 100 mls/ hr IVPB Q12@0600,1800 [facility] Last Admin: 10/28/16 18:23 Dose: 100 mls/hr Sodium Chloride (Sodium Chloride 0.9%) 1,000 mls @ 10 mls/hr IV .Q24H [facility] Last Admin: 10/28/16 17:52 Dose: Not Given Insulin Detemir (Levemir) 30 units SC HS [facility] Last Admin: 10/27/16 21:44 Dose: 30 units Insulin Human Lispro (Humalog) 8 units SC AC [facility] Last Admin: 10/28/16 17:21 Dose: 8 units Lidocaine (Lidoderm) 1 ea TD DAILY [facility] Last Admin: 10/28/16 08:26 Dose: 1 ea Linezolid (Zyvox) 600 mg PO Q12 [facility] Last Admin: 10/28/16 08:24 Dose: 600 mg Nystatin (Nystop Topical Powder) 1 applic TOP BID [facility] Last Admin: 10/28/16 17:51 Dose: 1 applic Ondansetron HCl (Zofran Inj) 4 mg IVP Q6 PRN PRN Reason: Nausea/Vomiting Last Admin: 09/19/16 10:26 Dose: 4 mg Pantoprazole Sodium (Protonix Ec Tab) 40 mg PO DAILY [facility] Last Admin: 10/28/16 08:24 Dose: 40 mg Phenylephrine HCl (Dagoberto-Synephrine 0.5% Nasal [place]) 1 spry ALLAN Q4 PRN PRN Reason: Nasal congestion Sevelamer HCl (Renagel) 1,600 mg PO TID [facility] Last Admin: 10/28/16 17:21 Dose: 1,600 mg Topiramate (Topamax) 50 mg PO BID [facility] Last Admin: 10/28/16 17:52 Dose: 50 mg Vitamin B Complex/Vit C/Folic Acid (Nephro-Ajay) 1 tab PO DAILY [facility] Last Admin: 10/28/16 08:24 Dose: 1 tab - Labs Labs: 10/25/16 09:30 10/25/16 09:30 PT 17.6 Seconds (9.8-13.1) H 10/15/16 07:00 INR 1.5 (0.9-1.2) H 10/15/16 07:00 APTT 36.6 Seconds (25.6-37.1) 10/15/16 07:00 Assessment and Plan (1) Diabetes Status: Chronic (2) ESRD (end stage renal disease) Status: Chronic (3) Cellulitis of leg Status: Chronic (4) Hyperlipidemia Status: Chronic (5) Back pain Status: Acute (6) Bacteremia due to Gram-negative bacteria Status: Acute (7) Diabetes mellitus type 2 with peripheral artery disease Status: Acute (8) PVD (peripheral vascular disease) Status: Acute (9) Osteomyelitis of right foot Status: Acute (10) Fungal infection right foot Status: Acute
[2016-10-28] MEDS: Insulin Detemir 100 Units/ml Inj SC SCH (22:36)
[2016-10-29] MEDS: Meropenem 500 MG in Sodium Chloride 0.9% 100 ML IVPB SCH (01:14)
--- NOTE | 2016-10-29 08:13 | CP.PCM.PN ---
<Sarah Chanel - Last Filed: 10/29/16 11:00> Subjective - Date & Time of Evaluation Date of Evaluation: 10/29/16 Time of Evaluation: 07:30 - Subjective Subjective: SURGERY PROGRESS NOTE FOR DR. MCCORMACK 46F seen and examined at bedside. Dressing to Right lower extremity stump clean dry intact, No strikethrough, wound VAC functioning Objective - Vital Signs/Intake and Output Vital Signs (last 24 hours): Temp Pulse Resp BP Pulse Ox 97.8 F 110 H 18 91/58 L 94 L 10/29/16 07:36 10/29/16 07:36 10/29/16 07:36 10/29/16 07:36 10/29/16 07:36 - Medications Medications: Current Medications Acetaminophen (Tylenol 325mg Tab) 650 mg PO Q4 PRN PRN Reason: Fever >100.4 F Last Admin: 10/02/16 16:27 Dose: 650 mg Acetaminophen (Tylenol 325mg Tab) 650 mg PO Q4 PRN PRN Reason: Pain, moderate (4-7) Last Admin: 09/16/16 22:34 Dose: 650 mg Albuterol Sulfate (Albuterol 0.083% Inhal Barbie (2.5 Mg/3 Ml) Ud) 2.5 mg INH RQ4 PRN PRN Reason: Shortness of Breath Albuterol/Ipratropium (Duoneb 3 Mg/0.5 Mg (3 Ml) Ud) 3 ml INH RQ4 PRN PRN Reason: Shortness of Breath Apixaban (Eliquis) 5 mg PO BID [facility] PRN Reason: Protocol Last Admin: 10/28/16 17:22 Dose: 5 mg Aspirin (Ecotrin) 81 mg PO DAILY [facility] Last Admin: 10/28/16 08:25 Dose: 81 mg Atorvastatin Calcium (Lipitor) 40 mg PO DAILY [facility] Last Admin: 10/28/16 08:24 Dose: 40 mg Benzonatate (Tessalon Perles) 200 mg PO TID PRN PRN Reason: Cough Last Admin: 10/02/16 14:07 Dose: 200 mg Cinacalcet (Sensipar) 30 mg PO DAILY [facility] Last Admin: 10/28/16 08:22 Dose: 30 mg Diphenhydramine HCl (Benadryl) 25 mg PO Q6 PRN PRN Reason: Itching / Pruritus Epoetin Tha (Procrit) 20,000 unit IV MWF [facility] Last Admin: 10/28/16 08:21 Dose: 20,000 unit Ergocalciferol (Drisdol 50,000 Intl Units Cap) 1 cap PO Q7D [facility] Stop: 11/06/16 11:16 Last Admin: 10/23/16 12:19 Dose: 1 cap Fluconazole (Diflucan) 100 mg PO DAILY [facility] Last Admin: 10/28/16 08:21 Dose: 100 mg Gabapentin (Neurontin) 300 mg PO TID [facility] Last Admin: 10/28/16 17:21 Dose: 300 mg Hydrocortisone (Anusol-Hc) 1 applic [place] BID PRN PRN Reason: Inflammation Hydromorphone HCl (Dilaudid) 1 mg IVP Q3H PRN PRN Reason: Pain, severe (8-10) Last Admin: 10/29/16 06:17 Dose: 1 mg Amikacin Sulfate 250 mg/ (Sodium Chloride) 101 mls @ 100.609 mls/hr IVPB [facility] Last Admin: 10/28/16 08:21 Dose: 100.609 mls/hr Meropenem 500 mg/ Sodium (Chloride) 100 mls @ 100 mls/hr IVPB DAILY@0100 [facility] Last Admin: 10/29/16 01:14 Dose: 100 mls/hr Piperacillin Sod/Tazobactam (Sod 2.25 gm/ Sodium Chloride) 100 mls @ 100 mls/ hr IVPB Q12@0600,1800 [facility] Last Admin: 10/29/16 05:33 Dose: 100 mls/hr Sodium Chloride (Sodium Chloride 0.9%) 1,000 mls @ 10 mls/hr IV .Q24H [facility] Last Admin: 10/28/16 17:52 Dose: Not Given Insulin Detemir (Levemir) 30 units SC HS [facility] Last Admin: 10/28/16 22:36 Dose: 30 units Insulin Human Lispro (Humalog) 8 units SC AC [facility] Last Admin: 10/28/16 17:21 Dose: 8 units Lidocaine (Lidoderm) 1 ea TD DAILY [facility] Last Admin: 10/28/16 08:26 Dose: 1 ea Linezolid (Zyvox) 600 mg PO Q12 [facility] Last Admin: 10/28/16 22:36 Dose: 600 mg Nystatin (Nystop Topical Powder) 1 applic TOP BID [facility] Last Admin: 10/28/16 17:51 Dose: 1 applic Ondansetron HCl (Zofran Inj) 4 mg IVP Q6 PRN PRN Reason: Nausea/Vomiting Last Admin: 09/19/16 10:26 Dose: 4 mg Pantoprazole Sodium (Protonix Ec Tab) 40 mg PO DAILY [facility] Last Admin: 10/28/16 08:24 Dose: 40 mg Phenylephrine HCl (Dagoberto-Synephrine 0.5% Nasal [place]) 1 spry ALLAN Q4 PRN PRN Reason: Nasal congestion Sevelamer HCl (Renagel) 1,600 mg PO TID [facility] Last Admin: 10/28/16 17:21 Dose: 1,600 mg Topiramate (Topamax) 50 mg PO BID [facility] Last Admin: 10/28/16 17:52 Dose: 50 mg Vitamin B Complex/Vit C/Folic Acid (Nephro-Ajay) 1 tab PO DAILY [facility] Last Admin: 10/28/16 08:24 Dose: 1 tab - Labs Labs: 10/25/16 09:30 10/25/16 09:30 PT 17.6 Seconds (9.8-13.1) H 10/15/16 07:00 INR 1.5 (0.9-1.2) H 10/15/16 07:00 APTT 36.6 Seconds (25.6-37.1) 10/15/16 07:00 - Constitutional Appears: Well, Non-toxic, No Acute Distress - Extremities Exam Additional comments: Bilateral bka. Wound VAC to right stump. No strikethrough noted - Neurological Exam Neurological Exam: Alert, Awake, Oriented x3 - Psychiatric Exam Psychiatric exam: Normal Affect, Normal Mood - Skin Skin Exam: Normal Color, Warm Assessment and Plan - Assessment and Plan (Free Text) Assessment: 46 F 4 weeks s/p Right BKA and POD# 14 s/p debridement of right leg stump with wound VAC placement Plan: Wound VAC intact, function Pain control Continue PT/OT Plan to change wound vac bedside today with Dr. Mccormack <Raffy Mccormack - Last Filed: 10/29/16 13:14> Subjective - Subjective Subjective: Patient seen and examined. She has been doing fairly well overall with no acute complaints. There are no systemic signs of infection. Patient is afebrile with stable vital signs. Right BKA stump examined at the bedside. Medial and mid aspects of the wound are granulating well and appear to be progressing toward healing. Lateral aspect of the wound appears to have stalled. We'll try Santyl and take a break from VAC to observe the wound next 2-3 days at which point we'll decide on further plan of actions. Objective - Vital Signs/Intake and Output Vital Signs (last 24 hours): Temp Pulse Resp BP Pulse Ox 97.8 F 110 H 18 91/58 L 94 L 10/29/16 07:36 10/29/16 07:36 10/29/16 07:36 10/29/16 07:36 10/29/16 07:36 - Medications Medications: Current Medications Acetaminophen (Tylenol 325mg Tab) 650 mg PO Q4 PRN PRN Reason: Fever >100.4 F Last Admin: 10/02/16 16:27 Dose: 650 mg Acetaminophen (Tylenol 325mg Tab) 650 mg PO Q4 PRN PRN Reason: Pain, moderate (4-7) Last Admin: 09/16/16 22:34 Dose: 650 mg Albuterol Sulfate (Albuterol 0.083% Inhal [place] (2.5 Mg/3 Ml) Ud) 2.5 mg INH RQ4 PRN PRN Reason: Shortness of Breath Albuterol/Ipratropium (Duoneb 3 Mg/0.5 Mg (3 Ml) Ud) 3 ml INH RQ4 PRN PRN Reason: Shortness of Breath Apixaban (Eliquis) 5 mg PO BID [facility] PRN Reason: Protocol Last Admin: 10/29/16 08:52 Dose: 5 mg Aspirin (Ecotrin) 81 mg PO DAILY [facility] Last Admin: 10/29/16 08:57 Dose: 81 mg Atorvastatin Calcium (Lipitor) 40 mg PO DAILY [facility] Last Admin: 10/29/16 08:55 Dose: 40 mg Benzonatate (Tessalon Perles) 200 mg PO TID PRN PRN Reason: Cough Last Admin: 10/02/16 14:07 Dose: 200 mg Cinacalcet (Sensipar) 30 mg PO DAILY [facility] Last Admin: 10/29/16 08:55 Dose: 30 mg Collagenase (Santyl) 1 applic TOP DAILY [facility] Last Admin: 10/29/16 12:24 Dose: 1 applic Diphenhydramine HCl (Benadryl) 25 mg PO Q6 PRN PRN Reason: Itching / Pruritus Epoetin Tha (Procrit) 20,000 unit IV [facility] Last Admin: 10/28/16 08:21 Dose: 20,000 unit Ergocalciferol (Drisdol 50,000 Intl Units Cap) 1 cap PO Q7D [facility] Stop: 11/06/16 11:16 Last Admin: 10/23/16 12:19 Dose: 1 cap Fluconazole (Diflucan) 100 mg PO DAILY [facility] Last Admin: 10/29/16 08:50 Dose: 100 mg Gabapentin (Neurontin) 300 mg PO TID [facility] Last Admin: 10/29/16 12:23 Dose: 300 mg Hydrocortisone (Anusol-Hc) 1 applic [place] BID PRN PRN Reason: Inflammation Hydromorphone HCl (Dilaudid) 1 mg IVP Q3H PRN PRN Reason: Pain, severe (8-10) Last Admin: 10/29/16 11:37 Dose: 1 mg Amikacin Sulfate 250 mg/ (Sodium Chloride) 101 mls @ 100.609 mls/hr IVPB [facility] Last Admin: 10/28/16 08:21 Dose: 100.609 mls/hr Meropenem 500 mg/ Sodium (Chloride) 100 mls @ 100 mls/hr IVPB DAILY@0100 [facility] Last Admin: 10/29/16 01:14 Dose: 100 mls/hr Piperacillin Sod/Tazobactam (Sod 2.25 gm/ Sodium Chloride) 100 mls @ 100 mls/ hr IVPB Q12@0600,1800 [facility] Last Admin: 10/29/16 05:33 Dose: 100 mls/hr Sodium Chloride (Sodium Chloride 0.9%) 1,000 mls @ 10 mls/hr IV .Q24H [facility] Last Admin: 10/28/16 17:52 Dose: Not Given Insulin Detemir (Levemir) 30 units SC [facility] Last Admin: 10/28/16 22:36 Dose: 30 units Insulin Human Lispro (Humalog) 8 units SC AC [facility] Last Admin: 10/29/16 12:23 Dose: 8 units Lidocaine (Lidoderm) 1 ea TD DAILY [facility] Last Admin: 10/29/16 08:54 Dose: 1 ea Linezolid (Zyvox) 600 mg PO Q12 [facility] Last Admin: 10/29/16 08:57 Dose: 600 mg Nystatin (Nystop Topical Powder) 1 applic TOP BID [facility] Last Admin: 10/29/16 08:57 Dose: 1 applic Ondansetron HCl (Zofran Inj) 4 mg IVP Q6 PRN PRN Reason: Nausea/Vomiting Last Admin: 09/19/16 10:26 Dose: 4 mg Pantoprazole Sodium (Protonix Ec Tab) 40 mg PO DAILY [facility] Last Admin: 10/29/16 08:57 Dose: 40 mg Phenylephrine HCl (Dagoebrto-Synephrine 0.5% Nasal [place]) 1 spry ALLAN Q4 PRN PRN Reason: Nasal congestion Sevelamer HCl (Renagel) 1,600 mg PO TID [facility] Last Admin: 10/29/16 12:23 Dose: 1,600 mg Topiramate (Topamax) 50 mg PO BID [facility] Last Admin: 10/29/16 08:56 Dose: 50 mg Vitamin B Complex/Vit C/Folic Acid (Nephro-Ajay) 1 tab PO DAILY [facility] Last Admin: 10/29/16 08:56 Dose: 1 tab - Labs Labs: 10/25/16 09:30 10/25/16 09:30 PT 17.6 Seconds (9.8-13.1) H 10/15/16 07:00 INR 1.5 (0.9-1.2) H 10/15/16 07:00 APTT 36.6 Seconds (25.6-37.1) 10/15/16 07:00
[2016-10-29] MEDS: Insulin Lispro (humaLOG) 100 Units/ml Inj SC SCH ×3 (08:52→16:40)
[2016-10-29] MEDS: Lidocaine 5% Patch TD SCH (08:54)
[2016-10-29] MEDS: Multivitamin Vitamin B Complex (Nephro-Vite) Tab PO SCH (08:56)
[2016-10-29] MEDS: Pantoprazole 40 mg EC Tab PO SCH (08:57)
--- NOTE | 2016-10-29 12:00 | CP.PCM.PN ---
Subjective - Date & Time of Evaluation Date of Evaluation: 10/29/16 Time of Evaluation: 11:51 - Subjective Subjective: Notes by Drs. Maguire, Arnol, and Darío appreciated. Patient is comortable, had PT this morning. R leg wounds examined with Ben Nails RN. The right inee abrasion is almost completely healed. The BK incision has no drainage, and for most ot the wound there is excellent granulation tissue. There is a 2+cm in diameter area of yellow-brownish tissue at the lateral border of the wound. There is no odor. The residual limb is warm. Dr. Mccormack will be reviewing the wound before the wound vac is reapplied. No fevers. Wound culture of 10/21/16 is negative. Continues on same antibiotic regimen. No dyspnea or cough or pains. DM is controlled. Objective - Vital Signs/Intake and Output Vital Signs (last 24 hours): Temp Pulse Resp BP Pulse Ox 97.8 F 110 H 18 91/58 L 94 L 10/29/16 07:36 10/29/16 07:36 10/29/16 07:36 10/29/16 07:36 10/29/16 07:36 - Medications Medications: Current Medications Acetaminophen (Tylenol 325mg Tab) 650 mg PO Q4 PRN PRN Reason: Fever >100.4 F Last Admin: 10/02/16 16:27 Dose: 650 mg Acetaminophen (Tylenol 325mg Tab) 650 mg PO Q4 PRN PRN Reason: Pain, moderate (4-7) Last Admin: 09/16/16 22:34 Dose: 650 mg Albuterol Sulfate (Albuterol 0.083% Inhal Barbie (2.5 Mg/3 Ml) Ud) 2.5 mg INH RQ4 PRN PRN Reason: Shortness of Breath Albuterol/Ipratropium (Duoneb 3 Mg/0.5 Mg (3 Ml) Ud) 3 ml INH RQ4 PRN PRN Reason: Shortness of Breath Apixaban (Eliquis) 5 mg PO BID [facility] PRN Reason: Protocol Last Admin: 10/29/16 08:52 Dose: 5 mg Aspirin (Ecotrin) 81 mg PO DAILY [facility] Last Admin: 10/29/16 08:57 Dose: 81 mg Atorvastatin Calcium (Lipitor) 40 mg PO DAILY [facility] Last Admin: 10/29/16 08:55 Dose: 40 mg Benzonatate (Tessalon Perles) 200 mg PO TID PRN PRN Reason: Cough Last Admin: 10/02/16 14:07 Dose: 200 mg Cinacalcet (Sensipar) 30 mg PO DAILY [facility] Last Admin: 10/29/16 08:55 Dose: 30 mg Diphenhydramine HCl (Benadryl) 25 mg PO Q6 PRN PRN Reason: Itching / Pruritus Epoetin Tha (Procrit) 20,000 unit IV [facility] Last Admin: 10/28/16 08:21 Dose: 20,000 unit Ergocalciferol (Drisdol 50,000 Intl Units Cap) 1 cap PO Q7D [facility] Stop: 11/06/16 11:16 Last Admin: 10/23/16 12:19 Dose: 1 cap Fluconazole (Diflucan) 100 mg PO DAILY [facility] Last Admin: 10/29/16 08:50 Dose: 100 mg Gabapentin (Neurontin) 300 mg PO TID [facility] Last Admin: 10/29/16 08:55 Dose: 300 mg Hydrocortisone (Anusol-Hc) 1 applic [place] BID PRN PRN Reason: Inflammation Hydromorphone HCl (Dilaudid) 1 mg IVP Q3H PRN PRN Reason: Pain, severe (8-10) Last Admin: 10/29/16 11:37 Dose: 1 mg Amikacin Sulfate 250 mg/ (Sodium Chloride) 101 mls @ 100.609 mls/hr IVPB [facility] [place] Last Admin: 10/28/16 08:21 Dose: 100.609 mls/hr Meropenem 500 mg/ Sodium (Chloride) 100 mls @ 100 mls/hr IVPB DAILY@0100 [facility] Last Admin: 10/29/16 01:14 Dose: 100 mls/hr Piperacillin Sod/Tazobactam (Sod 2.25 gm/ Sodium Chloride) 100 mls @ 100 mls/ hr IVPB Q12@0600,1800 [facility] Last Admin: 10/29/16 05:33 Dose: 100 mls/hr Sodium Chloride (Sodium Chloride 0.9%) 1,000 mls @ 10 mls/hr IV .Q24H [facility] Last Admin: 10/28/16 17:52 Dose: Not Given Insulin Detemir (Levemir) 30 units SC [facility] Last Admin: 10/28/16 22:36 Dose: 30 units Insulin Human Lispro (Humalog) 8 units SC AC [facility] Last Admin: 10/29/16 08:52 Dose: 8 units Lidocaine (Lidoderm) 1 ea TD DAILY [facility] Last Admin: 10/29/16 08:54 Dose: 1 ea Linezolid (Zyvox) 600 mg PO Q12 [facility] Last Admin: 10/29/16 08:57 Dose: 600 mg Nystatin (Nystop Topical Powder) 1 applic TOP BID [facility] Last Admin: 10/29/16 08:57 Dose: 1 applic Ondansetron HCl (Zofran Inj) 4 mg IVP Q6 PRN PRN Reason: Nausea/Vomiting Last Admin: 09/19/16 10:26 Dose: 4 mg Pantoprazole Sodium (Protonix Ec Tab) 40 mg PO DAILY [facility] Last Admin: 10/29/16 08:57 Dose: 40 mg Phenylephrine HCl (Dagoberto-Synephrine 0.5% Nasal [place]) 1 spry ALLAN Q4 PRN PRN Reason: Nasal congestion Sevelamer HCl (Renagel) 1,600 mg PO TID [facility] Last Admin: 10/29/16 08:54 Dose: 1,600 mg Topiramate (Topamax) 50 mg PO BID [facility] Last Admin: 10/29/16 08:56 Dose: 50 mg Vitamin B Complex/Vit C/Folic Acid (Nephro-Ajay) 1 tab PO DAILY [facility] Last Admin: 10/29/16 08:56 Dose: 1 tab - Labs Labs: 10/25/16 09:30 10/25/16 09:30 PT 17.6 Seconds (9.8-13.1) H 10/15/16 07:00 INR 1.5 (0.9-1.2) H 10/15/16 07:00 APTT 36.6 Seconds (25.6-37.1) 10/15/16 07:00 - Constitutional Appears: No Acute Distress - Head Exam Head Exam: NORMAL INSPECTION - Eye Exam Eye Exam: Normal appearance - ENT Exam ENT Exam: Mucous Membranes Moist - Neck Exam Neck Exam: Normal Inspection - Respiratory Exam Respiratory Exam: Clear to Ausculation Bilateral, NORMAL BREATHING PATTERN - Cardiovascular Exam Cardiovascular Exam: REGULAR RHYTHM, +S1, +S2 - GI/Abdominal Exam GI & Abdominal Exam: Soft - Extremities Exam Additional comments: See Subjective for description of right leg. Otherwise no lesions. L femoral PICC line intact. - Back Exam Back Exam: NORMAL INSPECTION - Psychiatric Exam Psychiatric exam: Normal Affect, Normal Mood - Skin Skin Exam: Dry, Normal Color, Warm Assessment and Plan (1) Status post below knee amputation of right lower extremity Assessment & Plan: Making excellent progress in both wound healing and physical therapy, but not yet ready for acute rehabilitation until wound is closed. Continue present tx. Status: Acute (2) ESRD (end stage renal disease) on dialysis Status: Chronic (3) DM type 2 (diabetes mellitus, type 2) Status: Chronic (4) Coagulopathy Status: Chronic (5) Peripheral arterial occlusive disease Status: Chronic - Assessment and Plan (Free Text) Assessment: Will repeat CBC and CMP tomorrow.
[2016-10-29] MEDS: Santyl Collagenase OINTMENT TOP SCH (12:24)
--- NOTE | 2016-10-29 15:59 | PN ---
DATE: 10/29/2016 ROOM: 663 This is a 46-year-old female with recent uncontrolled type 2 insulin-requiring diabetes, now being fo llowed closely for metabolic management. Her glycemic levels are fluctuating, but much improved at t his time and the latest chemistries showed a BUN of 46, sodium 144, potassium 4.9, chloride 104, CO2 of 23, glucose 100, and creatinine 6.5. So, at this time, we will continue the same basal and bolus insulin regimen as given with Humalog giv en as 8 units subQ t.i.d. before meals and Levemir given as 30 units subQ at bedtime daily as given. We will titrate incrementally as indicated to optimize metabolic control. We will obtain serial tasha mistries and supplement accordingly as needed. We will follow. Irene Ambrose MD cc: [phone] TT: 10/29/2016 15:58:34 Confirmation # [id number] Dictation # [id number]
[2016-10-29] MEDS: Sodium Chloride 0.9% 1,000 ML IV SCH (16:39)
[2016-10-29] MEDS: Insulin Detemir 100 Units/ml Inj SC SCH (21:30)
[2016-10-30] MEDS: Meropenem 500 MG in Sodium Chloride 0.9% 100 ML IVPB SCH (00:45)
--- NOTE | 2016-10-30 03:02 | CP.PCM.PN ---
Subjective - Date & Time of Evaluation Date of Evaluation: 10/29/16 Time of Evaluation: 20:35 - Subjective Subjective: No Seizures. She is controlled by Topamax 50 mg Q12 hrs. Not in distress. The Right BKA Stump is clean and dry. She is interactive. Her cultures are all negative. Objective - Vital Signs/Intake and Output Vital Signs (last 24 hours): Temp Pulse Resp BP Pulse Ox 98.3 F 102 H 19 96/61 L 100 10/30/16 00:08 10/30/16 00:08 10/30/16 00:08 10/30/16 00:08 10/30/16 00:08 - Medications Medications: Current Medications Acetaminophen (Tylenol 325mg Tab) 650 mg PO Q4 PRN PRN Reason: Fever >100.4 F Last Admin: 10/02/16 16:27 Dose: 650 mg Acetaminophen (Tylenol 325mg Tab) 650 mg PO Q4 PRN PRN Reason: Pain, moderate (4-7) Last Admin: 09/16/16 22:34 Dose: 650 mg Albuterol Sulfate (Albuterol 0.083% Inhal Barbie (2.5 Mg/3 Ml) Ud) 2.5 mg INH RQ4 PRN PRN Reason: Shortness of Breath Albuterol/Ipratropium (Duoneb 3 Mg/0.5 Mg (3 Ml) Ud) 3 ml INH RQ4 PRN PRN Reason: Shortness of Breath Apixaban (Eliquis) 5 mg PO BID [facility] PRN Reason: Protocol Last Admin: 10/29/16 16:36 Dose: 5 mg Aspirin (Ecotrin) 81 mg PO DAILY [facility] Last Admin: 10/29/16 08:57 Dose: 81 mg Atorvastatin Calcium (Lipitor) 40 mg PO DAILY [facility] Last Admin: 10/29/16 08:55 Dose: 40 mg Benzonatate (Tessalon Perles) 200 mg PO TID PRN PRN Reason: Cough Last Admin: 10/02/16 14:07 Dose: 200 mg Cinacalcet (Sensipar) 30 mg PO DAILY [facility] Last Admin: 10/29/16 08:55 Dose: 30 mg Collagenase (Santyl) 1 applic TOP DAILY [facility] Last Admin: 10/29/16 12:24 Dose: 1 applic Diphenhydramine HCl (Benadryl) 25 mg PO Q6 PRN PRN Reason: Itching / Pruritus Epoetin Tha (Procrit) 20,000 unit IV MWF [facility] Last Admin: 10/28/16 08:21 Dose: 20,000 unit Ergocalciferol (Drisdol 50,000 Intl Units Cap) 1 cap PO Q7D [facility] Stop: 11/06/16 11:16 Last Admin: 10/23/16 12:19 Dose: 1 cap Fluconazole (Diflucan) 100 mg PO DAILY [facility] Last Admin: 10/29/16 08:50 Dose: 100 mg Gabapentin (Neurontin) 300 mg PO TID [facility] Last Admin: 10/29/16 16:37 Dose: 300 mg Hydrocortisone (Anusol-Hc) 1 applic [place] BID PRN PRN Reason: Inflammation Hydromorphone HCl (Dilaudid) 1 mg IVP Q3H PRN PRN Reason: Pain, severe (8-10) Last Admin: 10/29/16 23:11 Dose: 1 mg Amikacin Sulfate 250 mg/ (Sodium Chloride) 101 mls @ 100.609 mls/hr IVPB [facility] Last Admin: 10/28/16 08:21 Dose: 100.609 mls/hr Meropenem 500 mg/ Sodium (Chloride) 100 mls @ 100 mls/hr IVPB DAILY@0100 [facility] Last Admin: 10/30/16 00:45 Dose: 100 mls/hr Piperacillin Sod/Tazobactam (Sod 2.25 gm/ Sodium Chloride) 100 mls @ 100 mls/ hr IVPB Q12@0600,1800 [facility] Last Admin: 10/29/16 16:59 Dose: 100 mls/hr Sodium Chloride (Sodium Chloride 0.9%) 1,000 mls @ 10 mls/hr IV .Q24H [facility] Last Admin: 10/29/16 16:39 Dose: 10 mls/hr Insulin Detemir (Levemir) 30 units SC HS [facility] Last Admin: 10/29/16 21:30 Dose: 30 units Insulin Human Lispro (Humalog) 8 units SC AC [facility] Last Admin: 10/29/16 16:40 Dose: 8 units Lidocaine (Lidoderm) 1 ea TD DAILY [facility] Last Admin: 10/29/16 08:54 Dose: 1 ea Linezolid (Zyvox) 600 mg PO Q12 [facility] Last Admin: 10/29/16 20:42 Dose: 600 mg Nystatin (Nystop Topical Powder) 1 applic TOP BID [facility] Last Admin: 10/29/16 16:35 Dose: 1 applic Ondansetron HCl (Zofran Inj) 4 mg IVP Q6 PRN PRN Reason: Nausea/Vomiting Last Admin: 09/19/16 10:26 Dose: 4 mg Pantoprazole Sodium (Protonix Ec Tab) 40 mg PO DAILY [facility] Last Admin: 10/29/16 08:57 Dose: 40 mg Phenylephrine HCl (Dagoberto-Synephrine 0.5% Nasal [place]) 1 spry ALLAN Q4 PRN PRN Reason: Nasal congestion Sevelamer HCl (Renagel) 1,600 mg PO TID [facility] Last Admin: 10/29/16 16:35 Dose: 1,600 mg Topiramate (Topamax) 50 mg PO BID [facility] Last Admin: 10/29/16 16:36 Dose: 50 mg Vitamin B Complex/Vit C/Folic Acid (Nephro-Ajay) 1 tab PO DAILY [facility] Last Admin: 10/29/16 08:56 Dose: 1 tab - Labs Labs: 10/25/16 09:30 10/25/16 09:30 PT 17.6 Seconds (9.8-13.1) H 10/15/16 07:00 INR 1.5 (0.9-1.2) H 10/15/16 07:00 APTT 36.6 Seconds (25.6-37.1) 10/15/16 07:00 Assessment and Plan (1) Diabetes Status: Chronic (2) ESRD (end stage renal disease) Status: Chronic (3) Cellulitis of leg Status: Chronic (4) Hyperlipidemia Status: Chronic (5) Back pain Status: Acute (6) Bacteremia due to Gram-negative bacteria Status: Acute (7) Diabetes mellitus type 2 with peripheral artery disease Status: Acute (8) PVD (peripheral vascular disease) Status: Acute (9) Osteomyelitis of right foot Status: Acute (10) Fungal infection right foot Status: Acute
[2016-10-30] MEDS: Insulin Lispro (humaLOG) 100 Units/ml Inj SC SCH ×3 (07:30→17:31)
--- NOTE | 2016-10-30 07:56 | CP.PCM.PN ---
Subjective - Date & Time of Evaluation Date of Evaluation: 10/30/16 Time of Evaluation: 07:00 - Subjective Subjective: SURGERY PROGRESS NOTE FOR DR. MCCORMACK 46 yo Female patient was seen and examined at bedside this AM. Dressing to right lower extremity remains clean dry and intact. Denies of pain to the surgical site today. Patient denies of N/V/F/C or SOB Objective - Vital Signs/Intake and Output Vital Signs (last 24 hours): Temp Pulse Resp BP Pulse Ox 97.5 F L 118 H 18 127/65 96 10/30/16 07:40 10/30/16 07:40 10/30/16 07:40 10/30/16 07:40 10/30/16 07:40 - Medications Medications: Current Medications Acetaminophen (Tylenol 325mg Tab) 650 mg PO Q4 PRN PRN Reason: Fever >100.4 F Last Admin: 10/02/16 16:27 Dose: 650 mg Acetaminophen (Tylenol 325mg Tab) 650 mg PO Q4 PRN PRN Reason: Pain, moderate (4-7) Last Admin: 09/16/16 22:34 Dose: 650 mg Albuterol Sulfate (Albuterol 0.083% Inhal Barbie (2.5 Mg/3 Ml) Ud) 2.5 mg INH RQ4 PRN PRN Reason: Shortness of Breath Albuterol/Ipratropium (Duoneb 3 Mg/0.5 Mg (3 Ml) Ud) 3 ml INH RQ4 PRN PRN Reason: Shortness of Breath Apixaban (Eliquis) 5 mg PO BID [facility] PRN Reason: Protocol Last Admin: 10/29/16 16:36 Dose: 5 mg Aspirin (Ecotrin) 81 mg PO DAILY [facility] Last Admin: 10/29/16 08:57 Dose: 81 mg Atorvastatin Calcium (Lipitor) 40 mg PO DAILY [facility] Last Admin: 10/29/16 08:55 Dose: 40 mg Benzonatate (Tessalon Perles) 200 mg PO TID PRN PRN Reason: Cough Last Admin: 10/02/16 14:07 Dose: 200 mg Cinacalcet (Sensipar) 30 mg PO DAILY [facility] Last Admin: 10/29/16 08:55 Dose: 30 mg Collagenase (Santyl) 1 applic TOP DAILY [facility] Last Admin: 10/29/16 12:24 Dose: 1 applic Diphenhydramine HCl (Benadryl) 25 mg PO Q6 PRN PRN Reason: Itching / Pruritus Epoetin Tha (Procrit) 20,000 unit IV MWF [facility] Last Admin: 10/28/16 08:21 Dose: 20,000 unit Ergocalciferol (Drisdol 50,000 Intl Units Cap) 1 cap PO Q7D [facility] Stop: 11/06/16 11:16 Last Admin: 10/23/16 12:19 Dose: 1 cap Fluconazole (Diflucan) 100 mg PO DAILY [facility] Last Admin: 10/29/16 08:50 Dose: 100 mg Gabapentin (Neurontin) 300 mg PO TID [facility] Last Admin: 10/29/16 16:37 Dose: 300 mg Hydrocortisone (Anusol-Hc) 1 applic [place] BID PRN PRN Reason: Inflammation Hydromorphone HCl (Dilaudid) 1 mg IVP Q3H PRN PRN Reason: Pain, severe (8-10) Last Admin: 10/30/16 05:24 Dose: 1 mg Amikacin Sulfate 250 mg/ (Sodium Chloride) 101 mls @ 100.609 mls/hr IVPB [facility] Last Admin: 10/28/16 08:21 Dose: 100.609 mls/hr Meropenem 500 mg/ Sodium (Chloride) 100 mls @ 100 mls/hr IVPB DAILY@0100 [facility] Last Admin: 10/30/16 00:45 Dose: 100 mls/hr Piperacillin Sod/Tazobactam (Sod 2.25 gm/ Sodium Chloride) 100 mls @ 100 mls/ hr IVPB Q12@0600,1800 [facility] Last Admin: 10/30/16 05:28 Dose: 100 mls/hr Sodium Chloride (Sodium Chloride 0.9%) 1,000 mls @ 10 mls/hr IV .Q24H [facility] Last Admin: 10/29/16 16:39 Dose: 10 mls/hr Insulin Detemir (Levemir) 30 units SC HS [facility] Last Admin: 10/29/16 21:30 Dose: 30 units Insulin Human Lispro (Humalog) 8 units SC AC [facility] Last Admin: 10/29/16 16:40 Dose: 8 units Lidocaine (Lidoderm) 1 ea TD DAILY [facility] Last Admin: 10/29/16 08:54 Dose: 1 ea Linezolid (Zyvox) 600 mg PO Q12 [facility] Last Admin: 10/29/16 20:42 Dose: 600 mg Nystatin (Nystop Topical Powder) 1 applic TOP BID [facility] Last Admin: 10/29/16 16:35 Dose: 1 applic Ondansetron HCl (Zofran Inj) 4 mg IVP Q6 PRN PRN Reason: Nausea/Vomiting Last Admin: 09/19/16 10:26 Dose: 4 mg Pantoprazole Sodium (Protonix Ec Tab) 40 mg PO DAILY [facility] Last Admin: 10/29/16 08:57 Dose: 40 mg Phenylephrine HCl (Dagoberto-Synephrine 0.5% Nasal [place]) 1 spry ALLAN Q4 PRN PRN Reason: Nasal congestion Sevelamer HCl (Renagel) 1,600 mg PO TID [facility] Last Admin: 10/29/16 16:35 Dose: 1,600 mg Topiramate (Topamax) 50 mg PO BID [facility] Last Admin: 10/29/16 16:36 Dose: 50 mg Vitamin B Complex/Vit C/Folic Acid (Nephro-Ajay) 1 tab PO DAILY [facility] Last Admin: 10/29/16 08:56 Dose: 1 tab - Labs Labs: 10/25/16 09:30 10/25/16 09:30 PT 17.6 Seconds (9.8-13.1) H 10/15/16 07:00 INR 1.5 (0.9-1.2) H 10/15/16 07:00 APTT 36.6 Seconds (25.6-37.1) 10/15/16 07:00 - Constitutional Appears: Well, Non-toxic, No Acute Distress - Extremities Exam Additional comments: No strikethrough noted from the dressing to right lower extremity stump - Neurological Exam Neurological Exam: Alert, Awake, Oriented x3 - Psychiatric Exam Psychiatric exam: Normal Affect, Normal Mood - Skin Skin Exam: Normal Color, Warm Assessment and Plan - Assessment and Plan (Free Text) Assessment: 46 F 4 weeks s/p Right BKA and POD# 15 s/p debridement of right leg stump Plan: Patient seen and examined Discontinued Wound VAC as of yesterday Continue with local woundcare with Santyl as per Dr. Mccormack Pain control Continue PT/OT
[2016-10-30] MEDS: Multivitamin Vitamin B Complex (Nephro-Vite) Tab PO SCH (09:37)
[2016-10-30] MEDS: Pantoprazole 40 mg EC Tab PO SCH (09:37)
[2016-10-30] MEDS: Lidocaine 5% Patch TD SCH (09:53)
--- NOTE | 2016-10-30 09:56 | CP.PCM.PN ---
Subjective - Date & Time of Evaluation Date of Evaluation: 10/30/16 Time of Evaluation: 09:54 - Subjective Subjective: No new event reported Patient about to have dialysis now Vital sign noted to be stable And the patient appears to be stable there seventh no new complaints reported to except of intermittent pain that has been described. Chest no rales Heart no rubs Abdomen soft Extremities bilateral amputation the most recent one on the right side below knee with infected stump as noted previously on multiple antibiotics. Impression and plan Hemodialysis as scheduled Sodium 138 Potassium 2.0 Like I 134 Ultrafiltration 3500 as tolerated Objective - Vital Signs/Intake and Output Vital Signs (last 24 hours): Temp Pulse Resp BP Pulse Ox 97.5 F L 118 H 18 127/65 96 10/30/16 07:40 10/30/16 07:40 10/30/16 07:40 10/30/16 07:40 10/30/16 07:40 - Medications Medications: Current Medications Acetaminophen (Tylenol 325mg Tab) 650 mg PO Q4 PRN PRN Reason: Fever >100.4 F Last Admin: 10/02/16 16:27 Dose: 650 mg Acetaminophen (Tylenol 325mg Tab) 650 mg PO Q4 PRN PRN Reason: Pain, moderate (4-7) Last Admin: 09/16/16 22:34 Dose: 650 mg Albuterol Sulfate (Albuterol 0.083% Inhal Barbie (2.5 Mg/3 Ml) Ud) 2.5 mg INH RQ4 PRN PRN Reason: Shortness of Breath Albuterol/Ipratropium (Duoneb 3 Mg/0.5 Mg (3 Ml) Ud) 3 ml INH RQ4 PRN PRN Reason: Shortness of Breath Apixaban (Eliquis) 5 mg PO BID [facility] PRN Reason: Protocol Last Admin: 10/29/16 16:36 Dose: 5 mg Aspirin (Ecotrin) 81 mg PO DAILY [facility] Last Admin: 10/30/16 09:53 Dose: 81 mg Atorvastatin Calcium (Lipitor) 40 mg PO DAILY [facility] Last Admin: 10/29/16 08:55 Dose: 40 mg Benzonatate (Tessalon Perles) 200 mg PO TID PRN PRN Reason: Cough Last Admin: 10/02/16 14:07 Dose: 200 mg Cinacalcet (Sensipar) 30 mg PO DAILY [facility] Last Admin: 10/30/16 09:54 Dose: 30 mg Collagenase (Santyl) 1 applic TOP DAILY [facility] Last Admin: 10/29/16 12:24 Dose: 1 applic Diphenhydramine HCl (Benadryl) 25 mg PO Q6 PRN PRN Reason: Itching / Pruritus Epoetin Tha (Procrit) 20,000 unit IV MWF [facility] Last Admin: 10/28/16 08:21 Dose: 20,000 unit Ergocalciferol (Drisdol 50,000 Intl Units Cap) 1 cap PO Q7D [facility] Stop: 11/06/16 11:16 Last Admin: 10/23/16 12:19 Dose: 1 cap Fluconazole (Diflucan) 100 mg PO DAILY [facility] Last Admin: 10/29/16 08:50 Dose: 100 mg Gabapentin (Neurontin) 300 mg PO TID [facility] Last Admin: 10/30/16 09:37 Dose: 300 mg Hydrocortisone (Anusol-Hc) 1 applic [place] BID PRN PRN Reason: Inflammation Hydromorphone HCl (Dilaudid) 1 mg IVP Q3H PRN PRN Reason: Pain, severe (8-10) Last Admin: 10/30/16 09:49 Dose: 1 mg Amikacin Sulfate 250 mg/ (Sodium Chloride) 101 mls @ 100.609 mls/hr [place] [facility] [place] Last Admin: 10/28/16 08:21 Dose: 100.609 mls/hr Meropenem 500 mg/ Sodium (Chloride) 100 mls @ 100 mls/hr IVPB DAILY@0100 [facility] Last Admin: 10/30/16 00:45 Dose: 100 mls/hr Piperacillin Sod/Tazobactam (Sod 2.25 gm/ Sodium Chloride) 100 mls @ 100 mls/ hr IVPB Q12@0600,1800 [facility] Last Admin: 10/30/16 05:28 Dose: 100 mls/hr Sodium Chloride (Sodium Chloride 0.9%) 1,000 mls @ 10 mls/hr IV .Q24H [facility] Last Admin: 10/29/16 16:39 Dose: 10 mls/hr Insulin Detemir (Levemir) 30 units SC HS [facility] Last Admin: 10/29/16 21:30 Dose: 30 units Insulin Human Lispro (Humalog) 8 units SC AC [facility] Last Admin: 10/29/16 16:40 Dose: 8 units Lidocaine (Lidoderm) 1 ea TD DAILY [facility] Last Admin: 10/30/16 09:53 Dose: 1 ea Linezolid (Zyvox) 600 mg PO Q12 [facility] Last Admin: 10/30/16 09:37 Dose: 600 mg Nystatin (Nystop Topical Powder) 1 applic TOP BID [facility] Last Admin: 10/29/16 16:35 Dose: 1 applic Ondansetron HCl (Zofran Inj) 4 mg IVP Q6 PRN PRN Reason: Nausea/Vomiting Last Admin: 09/19/16 10:26 Dose: 4 mg Pantoprazole Sodium (Protonix Ec Tab) 40 mg PO DAILY [facility] Last Admin: 10/30/16 09:37 Dose: 40 mg Phenylephrine HCl (Dagoberto-Synephrine 0.5% Nasal [place]) 1 spry ALLAN Q4 PRN PRN Reason: Nasal congestion Sevelamer HCl (Renagel) 1,600 mg PO TID [facility] Last Admin: 10/30/16 09:38 Dose: 1,600 mg Topiramate (Topamax) 50 mg PO BID [facility] Last Admin: 10/30/16 09:52 Dose: 50 mg Vitamin B Complex/Vit C/Folic Acid (Nephro-Ajay) 1 tab PO DAILY [facility] Last Admin: 10/30/16 09:37 Dose: 1 tab - Labs Labs: 10/25/16 09:30 10/25/16 09:30 PT 17.6 Seconds (9.8-13.1) H 10/15/16 07:00 INR 1.5 (0.9-1.2) H 10/15/16 07:00 APTT 36.6 Seconds (25.6-37.1) 10/15/16 07:00 Assessment and Plan (1) ESRD (end stage renal disease) Status: Chronic (2) Cellulitis of leg Status: Chronic
[2016-10-30] MEDS: Santyl Collagenase OINTMENT TOP SCH (10:08)
[2016-10-30] MEDS: Ergocalciferol 50,000 Intl Units Cap PO SCH (13:16)
--- NOTE | 2016-10-30 14:57 | PN ---
DATE: 10/30/2016 ROOM: 663 This is a 46-year-old female with recent uncontrolled type 2 insulin-requiring diabetes, now being fo llowed closely for metabolic management. Her glycemic levels are fluctuating, but much improved at t his time, especially postoperatively following a right below-knee amputation for management of severe right heel osteomyelitis and peripheral arterial vasculopathy. Her latest chemistries showed a BUN of 46, sodium 144, potassium 4.9, chloride 104, CO2 23, glucose 1 00, and creatinine 6.5. So, at this time, will continue the same basal and bolus insulin regimen as given with Levemir given as 30 units subQ at bedtime daily and Humalog given as 8 units subQ t.i.d. before meals as ordered. Will titrate incrementally as indicated to optimize metabolic control. Will follow. Irene Ambrose MD cc: [id number] TT: 10/30/2016 14:57:00 Confirmation # [id number] Dictation # [id number] [email or web address]
--- NOTE | 2016-10-30 15:01 | CP.PCM.PN ---
Subjective - Date & Time of Evaluation Date of Evaluation: 10/30/16 Time of Evaluation: 14:58 - Subjective Subjective: Patient is resting, awaiting hemodialysis. No pain or dyspnea. No fevers. New regimen for wound care is in place. As noted, the Santyl has allowed for debridement of some of the brown tissue at the right lateral border. The remainder of the wound is granulating in nicely. To continue on 3 iv and 2 po antibiotics. Labs reviewed. Diabetes is controlled. Objective - Vital Signs/Intake and Output Vital Signs (last 24 hours): Temp Pulse Resp BP Pulse Ox 97.5 F L 118 H 18 127/65 96 10/30/16 07:40 10/30/16 07:40 10/30/16 07:40 10/30/16 07:40 10/30/16 07:40 - Medications Medications: Current Medications Acetaminophen (Tylenol 325mg Tab) 650 mg PO Q4 PRN PRN Reason: Fever >100.4 F Last Admin: 10/02/16 16:27 Dose: 650 mg Acetaminophen (Tylenol 325mg Tab) 650 mg PO Q4 PRN PRN Reason: Pain, moderate (4-7) Last Admin: 09/16/16 22:34 Dose: 650 mg Albuterol Sulfate (Albuterol 0.083% Inhal Barbie (2.5 Mg/3 Ml) Ud) 2.5 mg INH RQ4 PRN PRN Reason: Shortness of Breath Albuterol/Ipratropium (Duoneb 3 Mg/0.5 Mg (3 Ml) Ud) 3 ml INH RQ4 PRN PRN Reason: Shortness of Breath Apixaban (Eliquis) 5 mg PO BID [facility] PRN Reason: Protocol Last Admin: 10/30/16 09:54 Dose: 5 mg Aspirin (Ecotrin) 81 mg PO DAILY [facility] Last Admin: 10/30/16 09:53 Dose: 81 mg Atorvastatin Calcium (Lipitor) 40 mg PO DAILY [facility] Last Admin: 10/30/16 09:56 Dose: 40 mg Benzonatate (Tessalon Perles) 200 mg PO TID PRN PRN Reason: Cough Last Admin: 10/02/16 14:07 Dose: 200 mg Cinacalcet (Sensipar) 30 mg PO DAILY [facility] Last Admin: 10/30/16 09:54 Dose: 30 mg Collagenase (Santyl) 1 applic TOP DAILY [facility] Last Admin: 10/30/16 10:08 Dose: 1 applic Diphenhydramine HCl (Benadryl) 25 mg PO Q6 PRN PRN Reason: Itching / Pruritus Epoetin Tha (Procrit) 20,000 unit IV MWF [facility] Last Admin: 10/28/16 08:21 Dose: 20,000 unit Ergocalciferol (Drisdol 50,000 Intl Units Cap) 1 cap PO Q7D [facility] Stop: 11/06/16 11:16 Last Admin: 10/30/16 13:16 Dose: 1 cap Fluconazole (Diflucan) 100 mg PO DAILY [facility] Last Admin: 10/30/16 09:59 Dose: 100 mg Gabapentin (Neurontin) 300 mg PO TID [facility] Last Admin: 10/30/16 09:37 Dose: 300 mg Hydrocortisone (Anusol-Hc) 1 applic [place] BID PRN PRN Reason: Inflammation Hydromorphone HCl (Dilaudid) 1 mg IVP Q3H PRN PRN Reason: Pain, severe (8-10) Last Admin: 10/30/16 09:49 Dose: 1 mg Amikacin Sulfate 250 mg/ (Sodium Chloride) 101 mls @ 100.609 mls/[facility] Last Admin: 10/30/16 10:02 Dose: 100.609 mls/hr Meropenem 500 mg/ Sodium (Chloride) 100 mls @ 100 mls/hr IVPB DAILY@0100 [facility] Last Admin: 10/30/16 00:45 Dose: 100 mls/hr Piperacillin Sod/Tazobactam (Sod 2.25 gm/ Sodium Chloride) 100 mls @ 100 mls/ hr IVPB Q12@0600,1800 [facility] Last Admin: 10/30/16 05:28 Dose: 100 mls/hr Sodium Chloride (Sodium Chloride 0.9%) 1,000 mls @ 10 mls/hr IV .Q24H [facility] Last Admin: 10/29/16 16:39 Dose: 10 mls/hr Insulin Detemir (Levemir) 30 units SC HS [facility] Last Admin: 10/29/16 21:30 Dose: 30 units Insulin Human Lispro (Humalog) 8 units SC AC [facility] Last Admin: 10/30/16 11:42 Dose: 8 units Lidocaine (Lidoderm) 1 ea TD DAILY [facility] Last Admin: 10/30/16 09:53 Dose: 1 ea Linezolid (Zyvox) 600 mg PO Q12 [facility] Last Admin: 10/30/16 09:37 Dose: 600 mg Nystatin (Nystop Topical Powder) 1 applic TOP BID [facility] Last Admin: 10/30/16 10:07 Dose: 1 applic Ondansetron HCl (Zofran Inj) 4 mg IVP Q6 PRN PRN Reason: Nausea/Vomiting Last Admin: 09/19/16 10:26 Dose: 4 mg Pantoprazole Sodium (Protonix Ec Tab) 40 mg PO DAILY [facility] Last Admin: 10/30/16 09:37 Dose: 40 mg Phenylephrine HCl (Dagoberto-Synephrine 0.5% Nasal [place]) 1 spry ALLAN Q4 PRN PRN Reason: Nasal congestion Sevelamer HCl (Renagel) 1,600 mg PO TID [facility] Last Admin: 10/30/16 13:17 Dose: 1,600 mg Topiramate (Topamax) 50 mg PO BID [facility] Last Admin: 10/30/16 09:52 Dose: 50 mg Vitamin B Complex/Vit C/Folic Acid (Nephro-Ajay) 1 tab PO DAILY [facility] Last Admin: 10/30/16 09:37 Dose: 1 tab - Labs Labs: 10/25/16 09:30 10/25/16 09:30 PT 17.6 Seconds (9.8-13.1) H 10/15/16 07:00 INR 1.5 (0.9-1.2) H 10/15/16 07:00 APTT 36.6 Seconds (25.6-37.1) 10/15/16 07:00 - Constitutional Appears: No Acute Distress - Head Exam Head Exam: NORMAL INSPECTION - Eye Exam Eye Exam: Normal appearance - ENT Exam ENT Exam: Mucous Membranes Moist - Respiratory Exam Respiratory Exam: Clear to Ausculation Bilateral, NORMAL BREATHING PATTERN - Cardiovascular Exam Cardiovascular Exam: REGULAR RHYTHM, +S1, +S2 - GI/Abdominal Exam GI & Abdominal Exam: Soft - Extremities Exam Additional comments: Right BK incision wound is dressed, and right patellar abrasion is also dressed. knee immobilizer is in place. Left femoral PICC line is intact. - Back Exam Back Exam: NORMAL INSPECTION - Neurological Exam Neurological Exam: Alert, Awake, CN II-XII Intact, Oriented x3 - Psychiatric Exam Psychiatric exam: Normal Affect, Normal Mood - Skin Skin Exam: Dry, Normal Color, Warm Assessment and Plan (1) Status post below knee amputation of right lower extremity Assessment & Plan: Making slow progress in wound healing. New regimen has begun for wound care with Nurse Ben Nails doing daily dressings. As per Dr. Mccormack and in my opinion as well, patient is not yet ready for acute rehab because wound healing must progress further first. Good progress in physical and occupational therapy at the bedside. Status: Acute (2) ESRD (end stage renal disease) on dialysis Status: Chronic (3) DM type 2 (diabetes mellitus, type 2) Status: Chronic (4) Coagulopathy Status: Chronic (5) Peripheral arterial occlusive disease Status: Chronic
[2016-10-30 17:26] LABS: BASO # 0.1 K/uL (0.0-0.2); BASO % 1.2 % (0.0-2.0); EOS # 0.6 K/uL (0.0-0.7); EOS % 8.4 % (0.0-4.0); HEMATOCRIT 30.6 % (34.0-47.0); LYMPH # 1.2 K/uL (1.0-4.3); LYMPH % 16.5 % (20.0-40.0); MEAN CELL VOLUME 97.5 fl (81.0-99.0); MEAN CORPUSCULAR HEMOGLOBIN 30.4 pg (27.0-31.0); MEAN CORPUSCULAR HGB CONC 31.2 g/dL (33.0-37.0); MEAN PLATELET VOLUME 9.1 fl (7.2-11.7); MONO # 0.6 K/uL (0.0-0.8); MONO % 7.6 % (0.0-10.0); NEUT % 66.3 % (50.0-75.0); RED CELL DISTRIBUTION WIDTH 24.8 % (11.5-14.5); WHITE BLOOD COUNT 7.6 K/uL (4.8-10.8)
[2016-10-30] MEDS: Epoetin Alfa 20000 UNIT/ML Inj IV SCH (21:06)
[2016-10-30] MEDS: Insulin Detemir 100 Units/ml Inj SC SCH (23:06)
--- NOTE | 2016-10-31 01:12 | CP.PCM.PN ---
Subjective - Date & Time of Evaluation Date of Evaluation: 10/30/16 Time of Evaluation: 21:05 - Subjective Subjective: Patient received Hemodialysis and is doing better. She is doing better. The D.M is under care of Dr Ambrose. She has no Seizures and is controlled by Topamax 50 mg BID. She is interactive. Objective - Vital Signs/Intake and Output Vital Signs (last 24 hours): Temp Pulse Resp BP Pulse Ox 98.6 F 118 H 18 103/57 L 97 10/31/16 00:18 10/31/16 00:18 10/31/16 00:18 10/31/16 00:18 10/31/16 00:18 - Medications Medications: Current Medications Acetaminophen (Tylenol 325mg Tab) 650 mg PO Q4 PRN PRN Reason: Fever >100.4 F Last Admin: 10/02/16 16:27 Dose: 650 mg Acetaminophen (Tylenol 325mg Tab) 650 mg PO Q4 PRN PRN Reason: Pain, moderate (4-7) Last Admin: 09/16/16 22:34 Dose: 650 mg Albuterol Sulfate (Albuterol 0.083% Inhal Barbie (2.5 Mg/3 Ml) Ud) 2.5 mg INH RQ4 PRN PRN Reason: Shortness of Breath Albuterol/Ipratropium (Duoneb 3 Mg/0.5 Mg (3 Ml) Ud) 3 ml INH RQ4 PRN PRN Reason: Shortness of Breath Apixaban (Eliquis) 5 mg PO BID [facility] PRN Reason: Protocol Last Admin: 10/30/16 16:00 Dose: 5 mg Aspirin (Ecotrin) 81 mg PO DAILY [facility] Last Admin: 10/30/16 09:53 Dose: 81 mg Atorvastatin Calcium (Lipitor) 40 mg PO DAILY [facility] Last Admin: 10/30/16 09:56 Dose: 40 mg Benzonatate (Tessalon Perles) 200 mg PO TID PRN PRN Reason: Cough Last Admin: 10/02/16 14:07 Dose: 200 mg Cinacalcet (Sensipar) 30 mg PO DAILY [facility] Last Admin: 10/30/16 09:54 Dose: 30 mg Collagenase (Santyl) 1 applic TOP DAILY [facility] Last Admin: 10/30/16 10:08 Dose: 1 applic Diphenhydramine HCl (Benadryl) 25 mg PO Q6 PRN PRN Reason: Itching / Pruritus Epoetin Tha (Procrit) 20,000 unit IV MWF [facility] Last Admin: 10/30/16 21:06 Dose: 20,000 unit Ergocalciferol (Drisdol 50,000 Intl Units Cap) 1 cap PO Q7D [facility] Stop: 11/06/16 11:16 Last Admin: 10/30/16 13:16 Dose: 1 cap Fluconazole (Diflucan) 100 mg PO DAILY [facility] Last Admin: 10/30/16 09:59 Dose: 100 mg Gabapentin (Neurontin) 300 mg PO TID [facility] Last Admin: 10/30/16 16:01 Dose: 300 mg Hydrocortisone (Anusol-Hc) 1 applic [place] BID PRN PRN Reason: Inflammation Hydromorphone HCl (Dilaudid) 1 mg IVP Q3H PRN PRN Reason: Pain, severe (8-10) Last Admin: 10/30/16 22:01 Dose: 1 mg Amikacin Sulfate 250 mg/ (Sodium Chloride) 101 mls @ 100.609 mls[facility] Last Admin: 10/30/16 10:02 Dose: 100.609 mls/hr Meropenem 500 mg/ Sodium (Chloride) 100 mls @ 100 mls/hr IVPB DAILY@0100 [facility] Last Admin: 10/30/16 00:45 Dose: 100 mls/hr Sodium Chloride (Sodium Chloride 0.9%) 1,000 mls @ 10 mls/hr IV .Q24H [facility] Last Admin: 10/29/16 16:39 Dose: 10 mls/hr Piperacillin Sod/Tazobactam (Sod 2.25 gm/ Sodium Chloride) 100 mls @ 100 mls/ hr IVPB Q12@0900,2100 [facility] Last Admin: 10/30/16 21:53 Dose: 100 mls/hr Insulin Detemir (Levemir) 30 units SC HS [facility] Last Admin: 10/30/16 23:06 Dose: 30 units Insulin Human Lispro (Humalog) 8 units SC AC [facility] Last Admin: 10/30/16 17:31 Dose: Not Given Lidocaine (Lidoderm) 1 ea TD DAILY [facility] Last Admin: 10/30/16 09:53 Dose: 1 ea Linezolid (Zyvox) 600 mg PO Q12 [facility] Last Admin: 10/30/16 21:54 Dose: 600 mg Nystatin (Nystop Topical Powder) 1 applic TOP BID [facility] Last Admin: 10/30/16 10:07 Dose: 1 applic Ondansetron HCl (Zofran Inj) 4 mg IVP Q6 PRN PRN Reason: Nausea/Vomiting Last Admin: 09/19/16 10:26 Dose: 4 mg Pantoprazole Sodium (Protonix Ec Tab) 40 mg PO DAILY [facility] Last Admin: 10/30/16 09:37 Dose: 40 mg Phenylephrine HCl (Dagoberto-Synephrine 0.5% Nasal [place]) 1 spry ALLAN Q4 PRN PRN Reason: Nasal congestion Sevelamer HCl (Renagel) 1,600 mg PO TID [facility] Last Admin: 10/30/16 16:01 Dose: 1,600 mg Topiramate (Topamax) 50 mg PO BID [facility] Last Admin: 10/30/16 16:01 Dose: 50 mg Vitamin B Complex/Vit C/Folic Acid (Nephro-Ajay) 1 tab PO DAILY [facility] Last Admin: 10/30/16 09:37 Dose: 1 tab - Labs Labs: 10/30/16 16:45 10/25/16 09:30 PT 17.6 Seconds (9.8-13.1) H 10/15/16 07:00 INR 1.5 (0.9-1.2) H 10/15/16 07:00 APTT 36.6 Seconds (25.6-37.1) 10/15/16 07:00 Assessment and Plan (1) Diabetes Status: Chronic (2) ESRD (end stage renal disease) Status: Chronic (3) Cellulitis of leg Status: Chronic (4) Hyperlipidemia Status: Chronic (5) Back pain Status: Acute (6) Bacteremia due to Gram-negative bacteria Status: Acute (7) Diabetes mellitus type 2 with peripheral artery disease Status: Acute (8) PVD (peripheral vascular disease) Status: Acute (9) Osteomyelitis of right foot Status: Acute (10) Fungal infection right foot Status: Acute
[2016-10-31] MEDS: Meropenem 500 MG in Sodium Chloride 0.9% 100 ML IVPB SCH (01:50)
[2016-10-31] MEDS: Multivitamin Vitamin B Complex (Nephro-Vite) Tab PO SCH (08:43)
[2016-10-31] MEDS: Pantoprazole 40 mg EC Tab PO SCH (08:43)
[2016-10-31] MEDS: Lidocaine 5% Patch TD SCH (08:45)
[2016-10-31] MEDS: Insulin Lispro (humaLOG) 100 Units/ml Inj SC SCH ×3 (08:46→17:12)
[2016-10-31] MEDS: Santyl Collagenase OINTMENT TOP SCH (08:47)
--- NOTE | 2016-10-31 13:44 | CP.PCM.PN ---
Subjective - Date & Time of Evaluation Date of Evaluation: 10/31/16 Time of Evaluation: 10:00 - Subjective Subjective: SURGERY PROGRESS NOTE FOR DR. MCCORMACK 46 yo Female patient was seen and examined at bedside this AM. Denies acute distress. Dressing to right lower extremity remains clean dry and intact. Patient denies of N/V/F/C or SOB Objective - Vital Signs/Intake and Output Vital Signs (last 24 hours): Temp Pulse Resp BP Pulse Ox 97.9 F 122 H 20 144/79 100 10/31/16 07:32 10/31/16 07:32 10/31/16 07:32 10/31/16 07:32 10/31/16 07:32 - Medications Medications: Current Medications Acetaminophen (Tylenol 325mg Tab) 650 mg PO Q4 PRN PRN Reason: Fever >100.4 F Last Admin: 10/02/16 16:27 Dose: 650 mg Acetaminophen (Tylenol 325mg Tab) 650 mg PO Q4 PRN PRN Reason: Pain, moderate (4-7) Last Admin: 09/16/16 22:34 Dose: 650 mg Albuterol Sulfate (Albuterol 0.083% Inhal Barbie (2.5 Mg/3 Ml) Ud) 2.5 mg INH RQ4 PRN PRN Reason: Shortness of Breath Albuterol/Ipratropium (Duoneb 3 Mg/0.5 Mg (3 Ml) Ud) 3 ml INH RQ4 PRN PRN Reason: Shortness of Breath Apixaban (Eliquis) 5 mg PO BID [facility] PRN Reason: Protocol Last Admin: 10/31/16 08:43 Dose: 5 mg Aspirin (Ecotrin) 81 mg PO DAILY [facility] Last Admin: 10/31/16 08:44 Dose: 81 mg Atorvastatin Calcium (Lipitor) 40 mg PO DAILY [facility] Last Admin: 10/31/16 08:45 Dose: 40 mg Benzonatate (Tessalon Perles) 200 mg PO TID PRN PRN Reason: Cough Last Admin: 10/02/16 14:07 Dose: 200 mg Cinacalcet (Sensipar) 30 mg PO DAILY [facility] Last Admin: 10/31/16 08:43 Dose: 30 mg Collagenase (Santyl) 1 applic TOP DAILY [facility] Last Admin: 10/31/16 08:47 Dose: 1 applic Diphenhydramine HCl (Benadryl) 25 mg PO Q6 PRN PRN Reason: Itching / Pruritus Epoetin Tha (Procrit) 20,000 unit IV MWF [facility] Last Admin: 10/30/16 21:06 Dose: 20,000 unit Ergocalciferol (Drisdol 50,000 Intl Units Cap) 1 cap PO Q7D [facility] Stop: 11/06/16 11:16 Last Admin: 10/30/16 13:16 Dose: 1 cap Fluconazole (Diflucan) 100 mg PO DAILY [facility] Last Admin: 10/31/16 08:43 Dose: 100 mg Gabapentin (Neurontin) 300 mg PO TID [facility] Last Admin: 10/31/16 13:16 Dose: 300 mg Hydrocortisone (Anusol-Hc) 1 applic [place] BID PRN PRN Reason: Inflammation Hydromorphone HCl (Dilaudid) 1 mg IVP Q3H PRN PRN Reason: Pain, severe (8-10) Last Admin: 10/31/16 13:27 Dose: 1 mg Amikacin Sulfate 250 mg/ (Sodium Chloride) 101 mls @ 100.609 mls/hr [facility] Last Admin: 10/30/16 10:02 Dose: 100.609 mls/hr Meropenem 500 mg/ Sodium (Chloride) 100 mls @ 100 mls/hr IVPB DAILY@0100 [facility] Last Admin: 10/31/16 01:50 Dose: 100 mls/hr Sodium Chloride (Sodium Chloride 0.9%) 1,000 mls @ 10 mls/hr IV .Q24H [facility] Last Admin: 10/29/16 16:39 Dose: 10 mls/hr Piperacillin Sod/Tazobactam (Sod 2.25 gm/ Sodium Chloride) 100 mls @ 100 mls/ hr IVPB Q12@0900,2100 [facility] Last Admin: 10/31/16 08:53 Dose: 100 mls/hr Insulin Detemir (Levemir) 30 units SC HS [facility] Last Admin: 10/30/16 23:06 Dose: 30 units Insulin Human Lispro (Humalog) 8 units SC AC [facility] Last Admin: 10/31/16 13:16 Dose: 8 units Lidocaine (Lidoderm) 1 ea TD DAILY [facility] Last Admin: 10/31/16 08:45 Dose: 1 ea Linezolid (Zyvox) 600 mg PO Q12 [facility] Last Admin: 10/31/16 08:43 Dose: 600 mg Nystatin (Nystop Topical Powder) 1 applic TOP BID [facility] Last Admin: 10/31/16 08:45 Dose: 1 applic Ondansetron HCl (Zofran Inj) 4 mg IVP Q6 PRN PRN Reason: Nausea/Vomiting Last Admin: 09/19/16 10:26 Dose: 4 mg Pantoprazole Sodium (Protonix Ec Tab) 40 mg PO DAILY [facility] Last Admin: 10/31/16 08:43 Dose: 40 mg Phenylephrine HCl (Dagoberto-Synephrine 0.5% Nasal [place]) 1 spry ALLAN Q4 PRN PRN Reason: Nasal congestion Sevelamer HCl (Renagel) 1,600 mg PO TID [facility] Last Admin: 10/31/16 13:17 Dose: 1,600 mg Topiramate (Topamax) 50 mg PO BID [facility] Last Admin: 10/31/16 08:44 Dose: 50 mg Vitamin B Complex/Vit C/Folic Acid (Nephro-Ajay) 1 tab PO DAILY [facility] Last Admin: 10/31/16 08:43 Dose: 1 tab - Labs Labs: 10/30/16 16:45 10/25/16 09:30 PT 17.6 Seconds (9.8-13.1) H 10/15/16 07:00 INR 1.5 (0.9-1.2) H 10/15/16 07:00 APTT 36.6 Seconds (25.6-37.1) 10/15/16 07:00 - Constitutional Appears: Well, Non-toxic, No Acute Distress - Extremities Exam Additional comments: Right lower extremity exam DERM: Open wound to distal aspect of right leg measuring approx. 14cm x 2.5 cm x 0.5cm with approx. 80% fibrotic, 20% granular base. No purulent discharge was noted. Moderate sero-sanguinous drainage is noted from the wound. No probe to bone. No maceration noted to wound edges VASC: skin warm to touch ORTHO: s/p BKA - Neurological Exam Neurological Exam: Alert, Awake, Oriented x3 - Psychiatric Exam Psychiatric exam: Normal Affect, Normal Mood - Skin Skin Exam: Normal Color, Warm Assessment and Plan - Assessment and Plan (Free Text) Assessment: 46 F 4 weeks s/p Right BKA and POD# 16 s/p debridement of right leg stump Plan: Patient seen and examined Right lower extremity dressing changed today with Dr. Mccormack Possible revisional wound debridement / I&D soon to be determined by Dr. Mccormack Pain control Continue PT/OT
[2016-10-31] MEDS: Sodium Chloride 0.9% 1,000 ML IV SCH (17:12)
--- NOTE | 2016-10-31 20:27 | PN ---
DATE: 10/31/2016 ROOM: 663 SUBJECTIVE: This is a 46-year-old female with recent uncontrolled type 2 insulin-requiring diabetes, now being followed closely for metabolic management. She underwent a recent right below-knee amputa tion for severe right heel osteomyelitis and underlying peripheral arterial vasculopathy and is curre ntly being followed closely for metabolic management. She has ongoing IV antibiotics as noted and gi ayanna. Her latest chemistry showed a BUN of 46, sodium 144, potassium 4.9, chloride 104, CO2 23, gluco se 100, and creatinine 6.5. At this time, we will continue the same basal and bolus insulin regimen as given with Levemir given as 30 units subQ at bedtime daily and Humalog given as 8 units subQ t.i.d . before meals as given. We will titrate incrementally as indicated to optimize metabolic control. We will follow and advise accordingly. Irene Ambrose MD cc: [id number] TT: 10/31/2016 20:26:41 Confirmation # [id number] Dictation # [id number]
--- NOTE | 2016-10-31 21:09 | CP.PCM.PN ---
Subjective - Date & Time of Evaluation Date of Evaluation: 10/31/16 Time of Evaluation: 21:05 - Subjective Subjective: Telephone visit with patient this evening: She is feeling OK, wound care is proceeding, She has been getting out of bed for longer periods of time. Our main concern now is for the surgical wound to heal so that more intense physical therapy can proceed. Because of her previous history of infection that persisted despite surgery for osteomyelitis, we must continue intensive antibiotic therapy. DM is controlled. HD is proceeding well. Will discuss present state of wound care with Ben Nails RN tomorrow. Hgb is holding around 9.5. No obvious hepatotoxicity from antibiotics. Objective - Vital Signs/Intake and Output Vital Signs (last 24 hours): Temp Pulse Resp BP Pulse Ox 97.5 F L 110 H 19 100/72 96 10/31/16 15:58 10/31/16 15:58 10/31/16 15:58 10/31/16 15:58 10/31/16 15:58 - Medications Medications: Current Medications Acetaminophen (Tylenol 325mg Tab) 650 mg PO Q4 PRN PRN Reason: Fever >100.4 F Last Admin: 10/02/16 16:27 Dose: 650 mg Acetaminophen (Tylenol 325mg Tab) 650 mg PO Q4 PRN PRN Reason: Pain, moderate (4-7) Last Admin: 09/16/16 22:34 Dose: 650 mg Albuterol Sulfate (Albuterol 0.083% Inhal Barbie (2.5 Mg/3 Ml) Ud) 2.5 mg INH RQ4 PRN PRN Reason: Shortness of Breath Albuterol/Ipratropium (Duoneb 3 Mg/0.5 Mg (3 Ml) Ud) 3 ml INH RQ4 PRN PRN Reason: Shortness of Breath Apixaban (Eliquis) 5 mg PO BID [facility] PRN Reason: Protocol Last Admin: 10/31/16 17:11 Dose: 5 mg Aspirin (Ecotrin) 81 mg PO DAILY [facility] Last Admin: 10/31/16 08:44 Dose: 81 mg Atorvastatin Calcium (Lipitor) 40 mg PO DAILY [facility] Last Admin: 10/31/16 08:45 Dose: 40 mg Benzonatate (Tessalon Perles) 200 mg PO TID PRN PRN Reason: Cough Last Admin: 10/02/16 14:07 Dose: 200 mg Cinacalcet (Sensipar) 30 mg PO DAILY [facility] Last Admin: 10/31/16 08:43 Dose: 30 mg Collagenase (Santyl) 1 applic TOP DAILY [facility] Last Admin: 10/31/16 08:47 Dose: 1 applic Diphenhydramine HCl (Benadryl) 25 mg PO Q6 PRN PRN Reason: Itching / Pruritus Epoetin Tha (Procrit) 20,000 [place] [facility] Last Admin: 10/30/16 21:06 Dose: 20,000 unit Ergocalciferol (Drisdol 50,000 Intl Units Cap) 1 cap PO Q7D [facility] Stop: 11/06/16 11:16 Last Admin: 10/30/16 13:16 Dose: 1 cap Fluconazole (Diflucan) 100 mg PO DAILY [facility] Last Admin: 10/31/16 08:43 Dose: 100 mg Gabapentin (Neurontin) 300 mg PO TID [facility] Last Admin: 10/31/16 17:12 Dose: 300 mg Hydrocortisone (Anusol-Hc) 1 applic [place] BID PRN PRN Reason: Inflammation Hydromorphone HCl (Dilaudid) 1 mg IVP Q3H PRN PRN Reason: Pain, severe (8-10) Last Admin: 10/31/16 19:03 Dose: 1 mg Amikacin Sulfate 250 mg/ (Sodium Chloride) 101 mls @ 100.609 mls/hr [place] [facility] Last Admin: 10/30/16 10:02 Dose: 100.609 mls/hr Meropenem 500 mg/ Sodium (Chloride) 100 mls @ 100 mls/hr IVPB DAILY@0100 [facility] Last Admin: 10/31/16 01:50 Dose: 100 mls/hr Sodium Chloride (Sodium Chloride 0.9%) 1,000 mls @ 10 mls/hr IV .Q24H [facility] Last Admin: 10/31/16 17:12 Dose: Not Given Piperacillin Sod/Tazobactam (Sod 2.25 gm/ Sodium Chloride) 100 mls @ 100 mls/ hr IVPB Q12@0900,2100 [facility] Last Admin: 10/31/16 08:53 Dose: 100 mls/hr Insulin Detemir (Levemir) 30 units SC [facility] Last Admin: 10/30/16 23:06 Dose: 30 units Insulin Human Lispro (Humalog) 8 units SC AC [facility] Last Admin: 10/31/16 17:12 Dose: 8 units Lidocaine (Lidoderm) 1 ea TD DAILY [facility] Last Admin: 10/31/16 08:45 Dose: 1 ea Linezolid (Zyvox) 600 mg PO Q12 [facility] Last Admin: 10/31/16 08:43 Dose: 600 mg Nystatin (Nystop Topical Powder) 1 applic TOP BID [facility] Last Admin: 10/31/16 17:11 Dose: 1 applic Ondansetron HCl (Zofran Inj) 4 mg IVP Q6 PRN PRN Reason: Nausea/Vomiting Last Admin: 09/19/16 10:26 Dose: 4 mg Pantoprazole Sodium (Protonix Ec Tab) 40 mg PO DAILY [facility] Last Admin: 10/31/16 08:43 Dose: 40 mg Phenylephrine HCl (Dagoberto-Synephrine 0.5% Nasal [place]) 1 spry ALLAN Q4 PRN PRN Reason: Nasal congestion Sevelamer HCl (Renagel) 1,600 mg PO TID [facility] Last Admin: 10/31/16 17:11 Dose: 1,600 mg Topiramate (Topamax) 50 mg PO BID [facility] Last Admin: 10/31/16 17:11 Dose: 50 mg Vitamin B Complex/Vit C/Folic Acid (Nephro-Ajay) 1 tab PO DAILY [facility] Last Admin: 10/31/16 08:43 Dose: 1 tab - Labs Labs: 10/30/16 16:45 10/25/16 09:30 PT 17.6 Seconds (9.8-13.1) H 10/15/16 07:00 INR 1.5 (0.9-1.2) H 10/15/16 07:00 APTT 36.6 Seconds (25.6-37.1) 10/15/16 07:00 Assessment and Plan (1) Status post below knee amputation of right lower extremity Status: Acute (2) ESRD (end stage renal disease) on dialysis Status: Chronic (3) DM type 2 (diabetes mellitus, type 2) Status: Chronic (4) Coagulopathy Status: Chronic (5) Peripheral arterial occlusive disease Status: Chronic
[2016-10-31] MEDS: Insulin Detemir 100 Units/ml Inj SC SCH (21:58)
--- NOTE | 2016-10-31 22:33 | CP.PCM.PN ---
Subjective - Date & Time of Evaluation Date of Evaluation: 10/31/16 Time of Evaluation: 21:50 - Subjective Subjective: Patient is doing better and is able to go out of bed with help. She has no seizures and is on Topamax and is stable. 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 She is a Dialysis Patient and is receiving Hemodialysis regularly 3 times a week. Her D.M is followed by Dr Ambrose of Endocrinology. Objective - Vital Signs/Intake and Output Vital Signs (last 24 hours): Temp Pulse Resp BP Pulse Ox 97.5 F L 110 H 19 100/72 96 10/31/16 15:58 10/31/16 15:58 10/31/16 15:58 10/31/16 15:58 10/31/16 15:58 - Medications Medications: Current Medications Acetaminophen (Tylenol 325mg Tab) 650 mg PO Q4 PRN PRN Reason: Fever >100.4 F Last Admin: 10/02/16 16:27 Dose: 650 mg Acetaminophen (Tylenol 325mg Tab) 650 mg PO Q4 PRN PRN Reason: Pain, moderate (4-7) Last Admin: 09/16/16 22:34 Dose: 650 mg Albuterol Sulfate (Albuterol 0.083% Inhal Barbie (2.5 Mg/3 Ml) Ud) 2.5 mg INH RQ4 PRN PRN Reason: Shortness of Breath Albuterol/Ipratropium (Duoneb 3 Mg/0.5 Mg (3 Ml) Ud) 3 ml INH RQ4 PRN PRN Reason: Shortness of Breath Apixaban (Eliquis) 5 mg PO BID JASPER PRN Reason: Protocol Last Admin: 10/31/16 17:11 Dose: 5 mg Aspirin (Ecotrin) 81 mg PO DAILY [facility] Last Admin: 10/31/16 08:44 Dose: 81 mg Atorvastatin Calcium (Lipitor) 40 mg PO DAILY [facility] Last Admin: 10/31/16 08:45 Dose: 40 mg Benzonatate (Tessalon Perles) 200 mg PO TID PRN PRN Reason: Cough Last Admin: 10/02/16 14:07 Dose: 200 mg Cinacalcet (Sensipar) 30 mg PO DAILY [facility] Last Admin: 10/31/16 08:43 Dose: 30 mg Collagenase (Santyl) 1 applic TOP DAILY [facility] Last Admin: 10/31/16 08:47 Dose: 1 applic Diphenhydramine HCl (Benadryl) 25 mg PO Q6 PRN PRN Reason: Itching / Pruritus Epoetin Tha (Procrit) 20,000 unit IV MWF [facility] Last Admin: 10/30/16 21:06 Dose: 20,000 unit Ergocalciferol (Drisdol 50,000 Intl Units Cap) 1 cap PO Q7D [facility] Stop: 11/06/16 11:16 Last Admin: 10/30/16 13:16 Dose: 1 cap Fluconazole (Diflucan) 100 mg PO DAILY [facility] Last Admin: 10/31/16 08:43 Dose: 100 mg Gabapentin (Neurontin) 300 mg PO TID [facility] Last Admin: 10/31/16 17:12 Dose: 300 mg Hydrocortisone (Anusol-Hc) 1 applic [place] BID PRN PRN Reason: Inflammation Hydromorphone HCl (Dilaudid) 1 mg IVP Q3H PRN PRN Reason: Pain, severe (8-10) Last Admin: 10/31/16 19:03 Dose: 1 mg Amikacin Sulfate 250 mg/ (Sodium Chloride) 101 mls @ 100.609 mls/hr IVPB [facility] [place] Last Admin: 10/30/16 10:02 Dose: 100.609 mls/hr Meropenem 500 mg/ Sodium (Chloride) 100 mls @ 100 mls/hr IVPB DAILY@0100 [facility] Last Admin: 10/31/16 01:50 Dose: 100 mls/hr Sodium Chloride (Sodium Chloride 0.9%) 1,000 mls @ 10 mls/hr IV .Q24H [facility] Last Admin: 10/31/16 17:12 Dose: Not Given Piperacillin Sod/Tazobactam (Sod 2.25 gm/ Sodium Chloride) 100 mls @ 100 mls/ hr IVPB Q12@0900,2100 [facility] Last Admin: 10/31/16 21:09 Dose: 100 mls/hr Insulin Detemir (Levemir) 30 units SC HS [facility] Last Admin: 10/31/16 21:58 Dose: 30 units Insulin Human Lispro (Humalog) 8 units SC AC [facility] Last Admin: 10/31/16 17:12 Dose: 8 units Lidocaine (Lidoderm) 1 ea TD DAILY [facility] Last Admin: 10/31/16 08:45 Dose: 1 ea Linezolid (Zyvox) 600 mg PO Q12 [facility] Last Admin: 10/31/16 21:09 Dose: 600 mg Nystatin (Nystop Topical Powder) 1 applic TOP BID [facility] Last Admin: 10/31/16 17:11 Dose: 1 applic Ondansetron HCl (Zofran Inj) 4 mg IVP Q6 PRN PRN Reason: Nausea/Vomiting Last Admin: 09/19/16 10:26 Dose: 4 mg Pantoprazole Sodium (Protonix Ec Tab) 40 mg PO DAILY [facility] Last Admin: 10/31/16 08:43 Dose: 40 mg Phenylephrine HCl (Dagoberto-Synephrine 0.5% Nasal [place]) 1 spry ALLAN Q4 PRN PRN Reason: Nasal congestion Sevelamer HCl (Renagel) 1,600 mg PO TID [facility] Last Admin: 10/31/16 17:11 Dose: 1,600 mg Topiramate (Topamax) 50 mg PO BID [facility] Last Admin: 10/31/16 17:11 Dose: 50 mg Vitamin B Complex/Vit C/Folic Acid (Nephro-Ajay) 1 tab PO DAILY [facility] Last Admin: 10/31/16 08:43 Dose: 1 tab - Labs Labs: 10/30/16 16:45 10/25/16 09:30 PT 17.6 Seconds (9.8-13.1) H 10/15/16 07:00 INR 1.5 (0.9-1.2) H 10/15/16 07:00 APTT 36.6 Seconds (25.6-37.1) 10/15/16 07:00 Assessment and Plan (1) Diabetes Status: Chronic (2) ESRD (end stage renal disease) Status: Chronic (3) Cellulitis of leg Status: Chronic (4) Hyperlipidemia Status: Chronic (5) Back pain Status: Acute (6) Bacteremia due to Gram-negative bacteria Status: Acute (7) Diabetes mellitus type 2 with peripheral artery disease Status: Acute (8) PVD (peripheral vascular disease) Status: Acute (9) Osteomyelitis of right foot Status: Acute (10) Fungal infection right foot Status: Acute
[2016-11-01] MEDS: Meropenem 500 MG in Sodium Chloride 0.9% 100 ML IVPB SCH (00:57)
[2016-11-01] MEDS: Insulin Lispro (humaLOG) 100 Units/ml Inj SC SCH ×3 (08:42→18:04)
[2016-11-01] MEDS: Multivitamin Vitamin B Complex (Nephro-Vite) Tab PO SCH (08:43)
[2016-11-01] MEDS: Pantoprazole 40 mg EC Tab PO SCH (08:43)
[2016-11-01] MEDS: Santyl Collagenase OINTMENT TOP SCH (08:44)
[2016-11-01] MEDS: Lidocaine 5% Patch TD SCH (11:18)
--- NOTE | 2016-11-01 11:55 | CP.PCM.PN ---
Subjective - Date & Time of Evaluation Date of Evaluation: 11/01/16 Time of Evaluation: 09:30 - Subjective Subjective: Patient had uneventful night. She has no immediate complaints. She denies significant pain in her right BKA stump. Objective - Vital Signs/Intake and Output Vital Signs (last 24 hours): Temp Pulse Resp BP Pulse Ox 97.6 F 107 H 20 154/57 H 94 L 11/01/16 09:00 11/01/16 09:00 11/01/16 09:00 11/01/16 09:00 11/01/16 09:00 - Medications Medications: Current Medications Acetaminophen (Tylenol 325mg Tab) 650 mg PO Q4 PRN PRN Reason: Fever >100.4 F Last Admin: 10/02/16 16:27 Dose: 650 mg Acetaminophen (Tylenol 325mg Tab) 650 mg PO Q4 PRN PRN Reason: Pain, moderate (4-7) Last Admin: 09/16/16 22:34 Dose: 650 mg Albuterol Sulfate (Albuterol 0.083% Inhal Barbie (2.5 Mg/3 Ml) Ud) 2.5 mg INH RQ4 PRN PRN Reason: Shortness of Breath Albuterol/Ipratropium (Duoneb 3 Mg/0.5 Mg (3 Ml) Ud) 3 ml INH RQ4 PRN PRN Reason: Shortness of Breath Apixaban (Eliquis) 5 mg PO BID JASPER PRN Reason: Protocol Last Admin: 11/01/16 11:18 Dose: 5 mg Aspirin (Ecotrin) 81 mg PO DAILY [facility] Last Admin: 11/01/16 11:18 Dose: 81 mg Atorvastatin Calcium (Lipitor) 40 mg PO DAILY [facility] Last Admin: 11/01/16 11:18 Dose: 40 mg Benzonatate (Tessalon Perles) 200 mg PO TID PRN PRN Reason: Cough Last Admin: 10/02/16 14:07 Dose: 200 mg Cinacalcet (Sensipar) 30 mg PO DAILY [facility] Last Admin: 11/01/16 08:43 Dose: 30 mg Collagenase (Santyl) 1 applic TOP DAILY [facility] Last Admin: 11/01/16 08:44 Dose: 1 applic Diphenhydramine HCl (Benadryl) 25 mg PO Q6 PRN PRN Reason: Itching / Pruritus Epoetin Tha (Procrit) 20,000 unit IV MWF [facility] Last Admin: 10/30/16 21:06 Dose: 20,000 unit Ergocalciferol (Drisdol 50,000 Intl Units Cap) 1 cap PO Q7D [facility] Stop: 11/06/16 11:16 Last Admin: 10/30/16 13:16 Dose: 1 cap Fluconazole (Diflucan) 100 mg PO DAILY [facility] Last Admin: 11/01/16 08:42 Dose: 100 mg Gabapentin (Neurontin) 300 mg PO TID [facility] Last Admin: 11/01/16 08:43 Dose: 300 mg Hydrocortisone (Anusol-Hc) 1 applic [place] BID PRN PRN Reason: Inflammation Hydromorphone HCl (Dilaudid) 1 mg IVP Q3H PRN PRN Reason: Pain, severe (8-10) Last Admin: 11/01/16 06:23 Dose: 1 mg Amikacin Sulfate 250 mg/ (Sodium Chloride) 101 mls @ 100.609 mls/hr IVPB [facility] [place] Last Admin: 10/30/16 10:02 Dose: 100.609 mls/hr Meropenem 500 mg/ Sodium (Chloride) 100 mls @ 100 mls/hr IVPB DAILY@0100 [facility] Last Admin: 11/01/16 00:57 Dose: 100 mls/hr Sodium Chloride (Sodium Chloride 0.9%) 1,000 mls @ 10 mls/hr IV .Q24H [facility] Last Admin: 10/31/16 17:12 Dose: Not Given Piperacillin Sod/Tazobactam (Sod 2.25 gm/ Sodium Chloride) 100 mls @ 100 mls/ hr IVPB Q12@0900,2100 [facility] Last Admin: 11/01/16 08:42 Dose: 100 mls/hr Insulin Detemir (Levemir) 30 units SC HS [facility] Last Admin: 10/31/16 21:58 Dose: 30 units Insulin Human Lispro (Humalog) 8 units SC AC [facility] Last Admin: 11/01/16 08:42 Dose: 8 units Lidocaine (Lidoderm) 1 ea TD DAILY [facility] Last Admin: 11/01/16 11:18 Dose: Not Given Linezolid (Zyvox) 600 mg PO Q12 [facility] Last Admin: 11/01/16 08:42 Dose: 600 mg Nystatin (Nystop Topical Powder) 1 applic TOP BID [facility] Last Admin: 11/01/16 08:43 Dose: 1 applic Ondansetron HCl (Zofran Inj) 4 mg IVP Q6 PRN PRN Reason: Nausea/Vomiting Last Admin: 09/19/16 10:26 Dose: 4 mg Pantoprazole Sodium (Protonix Ec Tab) 40 mg PO DAILY [facility] Last Admin: 11/01/16 08:43 Dose: 40 mg Phenylephrine HCl (Dagoberto-Synephrine 0.5% Nasal [place]) 1 spry ALLAN Q4 PRN PRN Reason: Nasal congestion Sevelamer HCl (Renagel) 1,600 mg PO TID [facility] Last Admin: 11/01/16 08:42 Dose: 1,600 mg Topiramate (Topamax) 50 mg PO BID [facility] Last Admin: 11/01/16 08:43 Dose: 50 mg Vitamin B Complex/Vit C/Folic Acid (Nephro-Ajay) 1 tab PO DAILY [facility] Last Admin: 11/01/16 08:43 Dose: 1 tab - Labs Labs: 10/30/16 16:45 10/25/16 09:30 PT 17.6 Seconds (9.8-13.1) H 10/15/16 07:00 INR 1.5 (0.9-1.2) H 10/15/16 07:00 APTT 36.6 Seconds (25.6-37.1) 10/15/16 07:00 - Constitutional Appears: Non-toxic, No Acute Distress - Head Exam Head Exam: NORMAL INSPECTION - Eye Exam Eye Exam: Normal appearance Pupil Exam: NORMAL ACCOMODATION - ENT Exam ENT Exam: Mucous Membranes Moist, Normal Exam - Respiratory Exam Respiratory Exam: NORMAL BREATHING PATTERN. absent: Respiratory Distress - Cardiovascular Exam Cardiovascular Exam: REGULAR RHYTHM. absent: JVD - GI/Abdominal Exam GI & Abdominal Exam: Soft. absent: Distended, Rigid - Extremities Exam Extremities Exam: Normal Inspection (right BKA dressing is on - clean and dry) - Neurological Exam Neurological Exam: Alert, Awake, Oriented x3 Assessment and Plan - Assessment and Plan (Free Text) Assessment: Patient remains clinically stable. She has not been febrile last 24 hours and does not exhibit obvious systemic signs of infection. Right BKA stump was examined last PM -- there was no krystal pus, cellulitis or erythema. There is no increased level of pain or tenderness involving right BKA stump. Plan: Continue local wound care using enzymatic debridement with Santyl. Continue supportive medical care. Obtain MRI of the right BKA stump to rule out abscess formation.
--- NOTE | 2016-11-01 13:05 | CP.PCM.PN ---
Subjective - Date & Time of Evaluation Date of Evaluation: 11/01/16 Time of Evaluation: 13:03 - Subjective Subjective: Patient appeared to be comfortable no significant changes reported Hemodialysis about to start. Physical exam Chest no significant rales Heart no rubs Abdomen soft Impression and plan Lab review hemoglobin 9.5 patient receiving 20,000 minute EPO 3 times a week on dialysis With ultrafiltration in the range of 3000 mL plus Patient appeared to be comfortable This management Antibiotics as per primary team Objective - Vital Signs/Intake and Output Vital Signs (last 24 hours): Temp Pulse Resp BP Pulse Ox 97.6 F 107 H 20 154/57 H 94 L 11/01/16 09:00 11/01/16 09:00 11/01/16 09:00 11/01/16 09:00 11/01/16 09:00 - Medications Medications: Current Medications Acetaminophen (Tylenol 325mg Tab) 650 mg PO Q4 PRN PRN Reason: Fever >100.4 F Last Admin: 10/02/16 16:27 Dose: 650 mg Acetaminophen (Tylenol 325mg Tab) 650 mg PO Q4 PRN PRN Reason: Pain, moderate (4-7) Last Admin: 09/16/16 22:34 Dose: 650 mg Albuterol Sulfate (Albuterol 0.083% Inhal Barbie (2.5 Mg/3 Ml) Ud) 2.5 mg INH RQ4 PRN PRN Reason: Shortness of Breath Albuterol/Ipratropium (Duoneb 3 Mg/0.5 Mg (3 Ml) Ud) 3 ml INH RQ4 PRN PRN Reason: Shortness of Breath Apixaban (Eliquis) 5 mg PO BID [facility] PRN Reason: Protocol Last Admin: 11/01/16 11:18 Dose: 5 mg Aspirin (Ecotrin) 81 mg PO DAILY [facility] Last Admin: 11/01/16 11:18 Dose: 81 mg Atorvastatin Calcium (Lipitor) 40 mg PO DAILY [facility] Last Admin: 11/01/16 11:18 Dose: 40 mg Benzonatate (Tessalon Perles) 200 mg PO TID PRN PRN Reason: Cough Last Admin: 10/02/16 14:07 Dose: 200 mg Cinacalcet (Sensipar) 30 mg PO DAILY [facility] Last Admin: 11/01/16 08:43 Dose: 30 mg Collagenase (Santyl) 1 applic TOP DAILY [facility] Last Admin: 11/01/16 08:44 Dose: 1 applic Diphenhydramine HCl (Benadryl) 25 mg PO Q6 PRN PRN Reason: Itching / Pruritus Epoetin Tha (Procrit) 20,000 unit IV MWF [facility] Last Admin: 10/30/16 21:06 Dose: 20,000 unit Ergocalciferol (Drisdol 50,000 Intl Units Cap) 1 cap PO Q7D [facility] Stop: 11/06/16 11:16 Last Admin: 10/30/16 13:16 Dose: 1 cap Fluconazole (Diflucan) 100 mg PO DAILY [facility] Last Admin: 11/01/16 08:42 Dose: 100 mg Gabapentin (Neurontin) 300 mg PO TID [facility] Last Admin: 11/01/16 12:50 Dose: 300 mg Hydrocortisone (Anusol-Hc) 1 applic SC BID PRN PRN Reason: Inflammation Hydromorphone HCl (Dilaudid) 1 mg IVP Q3H PRN PRN Reason: Pain, severe (8-10) Last Admin: 11/01/16 06:23 Dose: 1 mg Amikacin Sulfate 250 mg/ (Sodium Chloride) 101 mls @ 100.609 mls/hr [place] [facility] [place] Last Admin: 10/30/16 10:02 Dose: 100.609 mls/hr Meropenem 500 mg/ Sodium (Chloride) 100 mls @ 100 mls/hr IVPB DAILY@0100 [facility] Last Admin: 11/01/16 00:57 Dose: 100 mls/hr Sodium Chloride (Sodium Chloride 0.9%) 1,000 mls @ 10 mls/hr IV .Q24H [facility] Last Admin: 10/31/16 17:12 Dose: Not Given Piperacillin Sod/Tazobactam (Sod 2.25 gm/ Sodium Chloride) 100 mls @ 100 mls/ hr IVPB Q12@0900,2100 [facility] Last Admin: 11/01/16 08:42 Dose: 100 mls/hr Insulin Detemir (Levemir) 30 units SC HS [facility] Last Admin: 10/31/16 21:58 Dose: 30 units Insulin Human Lispro (Humalog) 8 units SC AC [facility] Last Admin: 11/01/16 12:51 Dose: 8 units Lidocaine (Lidoderm) 1 ea TD DAILY [facility] Last Admin: 11/01/16 11:18 Dose: Not Given Linezolid (Zyvox) 600 mg PO Q12 [facility] Last Admin: 11/01/16 08:42 Dose: 600 mg Nystatin (Nystop Topical Powder) 1 applic TOP BID [facility] Last Admin: 11/01/16 08:43 Dose: 1 applic Ondansetron HCl (Zofran Inj) 4 mg IVP Q6 PRN PRN Reason: Nausea/Vomiting Last Admin: 09/19/16 10:26 Dose: 4 mg Pantoprazole Sodium (Protonix Ec Tab) 40 mg PO DAILY [facility] Last Admin: 11/01/16 08:43 Dose: 40 mg Phenylephrine HCl (Dagoberto-Synephrine 0.5% Nasal [place]) 1 spry ALLAN Q4 PRN PRN Reason: Nasal congestion Sevelamer HCl (Renagel) 1,600 mg PO TID [facility] Last Admin: 11/01/16 12:50 Dose: 1,600 mg Topiramate (Topamax) 50 mg PO BID [facility] Last Admin: 11/01/16 08:43 Dose: 50 mg Vitamin B Complex/Vit C/Folic Acid (Nephro-Ajay) 1 tab PO DAILY [facility] Last Admin: 11/01/16 08:43 Dose: 1 tab - Labs Labs: 10/30/16 16:45 10/25/16 09:30 PT 17.6 Seconds (9.8-13.1) H 10/15/16 07:00 INR 1.5 (0.9-1.2) H 10/15/16 07:00 APTT 36.6 Seconds (25.6-37.1) 10/15/16 07:00 Assessment and Plan (1) ESRD (end stage renal disease) Status: Chronic (2) Cellulitis of leg Status: Chronic
--- NOTE | 2016-11-01 13:49 | PN ---
DATE: 11/01/2016 ROOM: 663 This is a 46-year-old female with recent uncontrolled type 2 insulin-requiring diabetes, now being fo llowed closely for metabolic management. Her glycemic levels are much improved at this time and the latest chemistries have showed a BUN of 46, sodium 144, potassium 4.9, chloride 104, CO2 23, glucose 100 and creatinine 6.5. She also is being followed closely postoperatively and has improved metaboli veto since the right below-knee amputation procedure undertaken for severe osteomyelitis and periphe ral arterial vasculopathy as noted. Her latest chemistries showed a BUN of 46, sodium 144, potassium 4.9, chloride 104, CO2 23, glucose 1 00 and creatinine 6.5. So at this time, we will continue the same basal and bolus insulin regimen as given with Humalog give n as 8 units subQ t.i.d. before meals and Levemir given as 30 units subQ at bedtime daily as ordered. We will titrate incrementally as indicated to optimize metabolic control. We will follow. Irene Ambrose MD cc: [phone] TT: 11/01/2016 13:48:39 Confirmation # [id number] Dictation # [id number] en
--- NOTE | 2016-11-01 16:46 | CP.PCM.PN ---
Subjective - Date & Time of Evaluation Date of Evaluation: 11/01/16 Time of Evaluation: 16:38 - Subjective Subjective: Notes by Alta Diaz, and [place] appreciated. Wound care by Richard Nails RN. Patient is comfortable, with no fevers, pain, or dyspnea. Right BK dressing is intact and knee immobilizer is in place. According to reports, there is no drainage or odor, and the Santyl appears to be helping to debride the small area of non-viable tissue. Dr. Mccormack has ordered an MRI of the R residual limb to rule out abscess. Patient continues on IV meropenem, Zosyn, and amikacin and on po Zyvox and Diflucan. She is on Eliquis and aspirin for coagulopathy (thrombophilia). Her insulin regimen (per Dr. Ambrose) seems to be working well. She will be dialyzed later today. I will hold off on blood tests until Friday 11/03 so as not to contribute to her anemia. Objective - Vital Signs/Intake and Output Vital Signs (last 24 hours): Temp Pulse Resp BP Pulse Ox 98 F 114 H 18 135/80 95 11/01/16 16:06 11/01/16 16:06 11/01/16 16:06 11/01/16 16:06 11/01/16 16:06 - Medications Medications: Current Medications Acetaminophen (Tylenol 325mg Tab) 650 mg PO Q4 PRN PRN Reason: Fever >100.4 F Last Admin: 10/02/16 16:27 Dose: 650 mg Acetaminophen (Tylenol 325mg Tab) 650 mg PO Q4 PRN PRN Reason: Pain, moderate (4-7) Last Admin: 09/16/16 22:34 Dose: 650 mg Albuterol Sulfate (Albuterol 0.083% Inhal Barbie (2.5 Mg/3 Ml) Ud) 2.5 mg INH RQ4 PRN PRN Reason: Shortness of Breath Albuterol/Ipratropium (Duoneb 3 Mg/0.5 Mg (3 Ml) Ud) 3 ml INH RQ4 PRN PRN Reason: Shortness of Breath Apixaban (Eliquis) 5 mg PO BID [facility] PRN Reason: Protocol Last Admin: 11/01/16 11:18 Dose: 5 mg Aspirin (Ecotrin) 81 mg PO DAILY [facility] Last Admin: 11/01/16 11:18 Dose: 81 mg Atorvastatin Calcium (Lipitor) 40 mg PO DAILY [facility] Last Admin: 11/01/16 11:18 Dose: 40 mg Benzonatate (Tessalon Perles) 200 mg PO TID PRN PRN Reason: Cough Last Admin: 10/02/16 14:07 Dose: 200 mg Cinacalcet (Sensipar) 30 mg PO DAILY [facility] Last Admin: 11/01/16 08:43 Dose: 30 mg Collagenase (Santyl) 1 applic TOP DAILY [facility] Last Admin: 11/01/16 08:44 Dose: 1 applic Diphenhydramine HCl (Benadryl) 25 mg PO Q6 PRN PRN Reason: Itching / Pruritus Epoetin Tha (Procrit) 20,000 unit IV [facility] [place] Last Admin: 10/30/16 21:06 Dose: 20,000 unit Ergocalciferol (Drisdol 50,000 Intl Units Cap) 1 cap PO Q7D [facility] Stop: 11/06/16 11:16 Last Admin: 10/30/16 13:16 Dose: 1 cap Fluconazole (Diflucan) 100 mg PO DAILY [facility] Last Admin: 11/01/16 08:42 Dose: 100 mg Gabapentin (Neurontin) 300 mg PO TID [facility] Last Admin: 11/01/16 12:50 Dose: 300 mg Hydrocortisone (Anusol-Hc) 1 applic [place] BID PRN PRN Reason: Inflammation Hydromorphone HCl (Dilaudid) 1 mg IVP Q3H PRN PRN Reason: Pain, severe (8-10) Last Admin: 11/01/16 15:44 Dose: 1 mg Amikacin Sulfate 250 mg/ (Sodium Chloride) 101 mls @ 100.609 mls/hr IVPB MWF [facility] Last Admin: 10/30/16 10:02 Dose: 100.609 mls/hr Meropenem 500 mg/ Sodium (Chloride) 100 mls @ 100 mls/hr IVPB DAILY@0100 [facility] Last Admin: 11/01/16 00:57 Dose: 100 mls/hr Sodium Chloride (Sodium Chloride 0.9%) 1,000 mls @ 10 mls/hr IV .Q24H [facility] Last Admin: 10/31/16 17:12 Dose: Not Given Piperacillin Sod/Tazobactam (Sod 2.25 gm/ Sodium Chloride) 100 mls @ 100 mls/ hr IVPB Q12@0900,2100 [facility] Last Admin: 11/01/16 08:42 Dose: 100 mls/hr Insulin Detemir (Levemir) 30 units SC HS [facility] Last Admin: 10/31/16 21:58 Dose: 30 units Insulin Human Lispro (Humalog) 8 units SC AC [facility] Last Admin: 11/01/16 12:51 Dose: 8 units Lidocaine (Lidoderm) 1 ea TD DAILY [facility] Last Admin: 11/01/16 11:18 Dose: Not Given Linezolid (Zyvox) 600 mg PO Q12 [facility] Last Admin: 11/01/16 08:42 Dose: 600 mg Nystatin (Nystop Topical Powder) 1 applic TOP BID [facility] Last Admin: 11/01/16 08:43 Dose: 1 applic Ondansetron HCl (Zofran Inj) 4 mg IVP Q6 PRN PRN Reason: Nausea/Vomiting Last Admin: 09/19/16 10:26 Dose: 4 mg Pantoprazole Sodium (Protonix Ec Tab) 40 mg PO DAILY [facility] Last Admin: 11/01/16 08:43 Dose: 40 mg Phenylephrine HCl (Dagoberto-Synephrine 0.5% Nasal [place]) 1 spry ALLAN Q4 PRN PRN Reason: Nasal congestion Sevelamer HCl (Renagel) 1,600 mg PO TID [facility] Last Admin: 11/01/16 12:50 Dose: 1,600 mg Topiramate (Topamax) 50 mg PO BID [facility] Last Admin: 11/01/16 08:43 Dose: 50 mg Vitamin B Complex/Vit C/Folic Acid (Nephro-Ajay) 1 tab PO DAILY [facility] Last Admin: 11/01/16 08:43 Dose: 1 tab - Labs Labs: 10/30/16 16:45 10/25/16 09:30 PT 17.6 Seconds (9.8-13.1) H 10/15/16 07:00 INR 1.5 (0.9-1.2) H 10/15/16 07:00 APTT 36.6 Seconds (25.6-37.1) 10/15/16 07:00 - Constitutional Appears: No Acute Distress - Head Exam Head Exam: NORMAL INSPECTION - Eye Exam Eye Exam: Normal appearance - ENT Exam ENT Exam: Mucous Membranes Moist - Neck Exam Neck Exam: Normal Inspection Additional comments: R subclavian Permacath intact. - Respiratory Exam Respiratory Exam: Clear to Ausculation Bilateral, NORMAL BREATHING PATTERN - Cardiovascular Exam Cardiovascular Exam: REGULAR RHYTHM, +S1, +S2 - GI/Abdominal Exam GI & Abdominal Exam: Soft - Extremities Exam Additional comments: See subjective regarding right BK wound. Hands slighly edematous, but warm and non-tender. L BK residual limb is warm with no lesions and no tenderness. Right femoral PICC line intact. - Back Exam Back Exam: NORMAL INSPECTION - Neurological Exam Neurological Exam: Alert, Awake, CN II-XII Intact, Oriented x3 - Psychiatric Exam Psychiatric exam: Normal Affect, Normal Mood - Skin Skin Exam: Dry, Normal Color, Warm Assessment and Plan (1) Status post below knee amputation of right lower extremity Assessment & Plan: Right BK site appears to be healing, albeit slowly. To continue on current antibiotics. Await result of MRI. Status: Acute (2) ESRD (end stage renal disease) on dialysis Status: Chronic (3) DM type 2 (diabetes mellitus, type 2) Status: Chronic (4) Coagulopathy Status: Chronic (5) Peripheral arterial occlusive disease Status: Chronic
[2016-11-01] MEDS: Sodium Chloride 0.9% 1,000 ML IV SCH (18:04)
[2016-11-01] MEDS: Epoetin Alfa 20000 UNIT/ML Inj IV SCH (18:09)
--- NOTE | 2016-11-01 21:41 | CP.PCM.PN ---
Subjective - Date & Time of Evaluation Date of Evaluation: 11/01/16 Time of Evaluation: 21:00 - Subjective Subjective: Patient is doing better in general after controlling her Right BKA post operative infection and after controlling her blood glucose by Dr Ambrose of Endocrinology. She has no seizures and is controlled on Po Topamax 50 mg BID She is a Hemo Dialysis for ESRD and the Creatinine goes down to 2 after Dialysis. The Creatinine is fluctuating. Objective - Vital Signs/Intake and Output Vital Signs (last 24 hours): Temp Pulse Resp BP Pulse Ox 98 F 114 H 18 135/80 95 11/01/16 16:06 11/01/16 16:06 11/01/16 16:06 11/01/16 16:06 11/01/16 16:06 - Medications Medications: Current Medications Acetaminophen (Tylenol 325mg Tab) 650 mg PO Q4 PRN PRN Reason: Fever >100.4 F Last Admin: 10/02/16 16:27 Dose: 650 mg Acetaminophen (Tylenol 325mg Tab) 650 mg PO Q4 PRN PRN Reason: Pain, moderate (4-7) Last Admin: 09/16/16 22:34 Dose: 650 mg Albuterol Sulfate (Albuterol 0.083% Inhal Barbie (2.5 Mg/3 Ml) Ud) 2.5 mg INH RQ4 PRN PRN Reason: Shortness of Breath Albuterol/Ipratropium (Duoneb 3 Mg/0.5 Mg (3 Ml) Ud) 3 ml INH RQ4 PRN PRN Reason: Shortness of Breath Apixaban (Eliquis) 5 mg PO BID JASPER PRN Reason: Protocol Last Admin: 11/01/16 18:03 Dose: 5 mg Aspirin (Ecotrin) 81 mg PO DAILY [facility] Last Admin: 11/01/16 11:18 Dose: 81 mg Atorvastatin Calcium (Lipitor) 40 mg PO DAILY [facility] Last Admin: 11/01/16 11:18 Dose: 40 mg Benzonatate (Tessalon Perles) 200 mg PO TID PRN PRN Reason: Cough Last Admin: 10/02/16 14:07 Dose: 200 mg Cinacalcet (Sensipar) 30 mg PO DAILY [facility] Last Admin: 11/01/16 08:43 Dose: 30 mg Collagenase (Santyl) 1 applic TOP DAILY [facility] Last Admin: 11/01/16 08:44 Dose: 1 applic Diphenhydramine HCl (Benadryl) 25 mg PO Q6 PRN PRN Reason: Itching / Pruritus Epoetin Tha (Procrit) 20,000 [place] [facility] [place] Admin: 11/01/16 18:09 Dose: 20,000 unit Ergocalciferol (Drisdol 50,000 Intl Units Cap) 1 cap PO Q7D [facility] Stop: 11/06/16 11:16 Last Admin: 10/30/16 13:16 Dose: 1 cap Fluconazole (Diflucan) 100 mg PO DAILY [facility] Last Admin: 11/01/16 08:42 Dose: 100 mg Gabapentin (Neurontin) 300 mg PO TID [facility] Last Admin: 11/01/16 18:04 Dose: 300 mg Hydrocortisone (Anusol-Hc) 1 applic [place] BID PRN PRN Reason: Inflammation Hydromorphone HCl (Dilaudid) 1 mg IVP Q3H PRN PRN Reason: Pain, severe (8-10) Last Admin: 11/01/16 15:44 Dose: 1 mg Amikacin Sulfate 250 mg/ (Sodium Chloride) 101 mls @ 100.609 mls/hr [place]PB [facility] [place] Last Admin: 11/01/16 19:02 Dose: 100.609 mls/hr Meropenem 500 mg/ Sodium (Chloride) 100 mls @ 100 mls/hr IVPB DAILY@0100 [facility] Last Admin: 11/01/16 00:57 Dose: 100 mls/hr Sodium Chloride (Sodium Chloride 0.9%) 1,000 mls @ 10 mls/hr IV .Q24H [facility] Last Admin: 11/01/16 18:04 Dose: 10 mls/hr Piperacillin Sod/Tazobactam (Sod 2.25 gm/ Sodium Chloride) 100 mls @ 100 mls/ hr IVPB Q12@0900,2100 [facility] Last Admin: 11/01/16 08:42 Dose: 100 mls/hr Insulin Detemir (Levemir) 30 units SC [facility] Last Admin: 10/31/16 21:58 Dose: 30 units Insulin Human Lispro (Humalog) 8 units SC AC [facility] Last Admin: 11/01/16 18:04 Dose: 8 units Lidocaine (Lidoderm) 1 ea TD DAILY [facility] Last Admin: 11/01/16 11:18 Dose: Not Given Linezolid (Zyvox) 600 mg PO Q12 [facility] Last Admin: 11/01/16 08:42 Dose: 600 mg Nystatin (Nystop Topical Powder) 1 applic TOP BID [facility] Last Admin: 11/01/16 18:04 Dose: 1 applic Ondansetron HCl (Zofran Inj) 4 mg IVP Q6 PRN PRN Reason: Nausea/Vomiting Last Admin: 09/19/16 10:26 Dose: 4 mg Pantoprazole Sodium (Protonix Ec Tab) 40 mg PO DAILY [facility] Last Admin: 11/01/16 08:43 Dose: 40 mg Phenylephrine HCl (Dagoberto-Synephrine 0.5% Nasal [place]) 1 spry LALAN Q4 PRN PRN Reason: Nasal congestion Sevelamer HCl (Renagel) 1,600 mg PO TID [facility] Last Admin: 11/01/16 18:04 Dose: 1,600 mg Topiramate (Topamax) 50 mg PO BID [facility] Last Admin: 11/01/16 18:03 Dose: 50 mg Vitamin B Complex/Vit C/Folic Acid (Nephro-Ajay) 1 tab PO DAILY [facility] Last Admin: 11/01/16 08:43 Dose: 1 tab - Labs Labs: 10/30/16 16:45 10/25/16 09:30 PT 17.6 Seconds (9.8-13.1) H 10/15/16 07:00 INR 1.5 (0.9-1.2) H 10/15/16 07:00 APTT 36.6 Seconds (25.6-37.1) 10/15/16 07:00 Assessment and Plan (1) Diabetes Status: Chronic (2) ESRD (end stage renal disease) Status: Chronic (3) Cellulitis of leg Status: Chronic (4) Hyperlipidemia Status: Chronic (5) Back pain Status: Acute (6) Bacteremia due to Gram-negative bacteria Status: Acute (7) Diabetes mellitus type 2 with peripheral artery disease Status: Acute (8) PVD (peripheral vascular disease) Status: Acute (9) Osteomyelitis of right foot Status: Acute (10) Fungal infection right foot Status: Acute
[2016-11-01] MEDS: Insulin Detemir 100 Units/ml Inj SC SCH (21:53)
[2016-11-02] MEDS: Meropenem 500 MG in Sodium Chloride 0.9% 100 ML IVPB SCH (03:47)
[2016-11-02] MEDS: Multivitamin Vitamin B Complex (Nephro-Vite) Tab PO SCH (08:27)
[2016-11-02] MEDS: Insulin Lispro (humaLOG) 100 Units/ml Inj SC SCH ×3 (08:29→17:10)
[2016-11-02] MEDS: Lidocaine 5% Patch TD SCH (08:46)
[2016-11-02] MEDS: Santyl Collagenase OINTMENT TOP SCH (09:00)
--- NOTE | 2016-11-02 09:03 | CP.PCM.PN ---
Subjective - Date & Time of Evaluation Date of Evaluation: 11/02/16 Time of Evaluation: 06:30 - Subjective Subjective: SURGERY NOTE FOR DR. MORATAYA 46F seen and examined at bedside. NAEON. no complaints. Objective - Vital Signs/Intake and Output Vital Signs (last 24 hours): Temp Pulse Resp BP Pulse Ox 98.5 F 108 H 18 89/57 L 98 11/02/16 07:34 11/02/16 07:34 11/02/16 07:34 11/02/16 07:34 11/02/16 07:34 - Medications Medications: Current Medications Acetaminophen (Tylenol 325mg Tab) 650 mg PO Q4 PRN PRN Reason: Fever >100.4 F Last Admin: 10/02/16 16:27 Dose: 650 mg Acetaminophen (Tylenol 325mg Tab) 650 mg PO Q4 PRN PRN Reason: Pain, moderate (4-7) Last Admin: 09/16/16 22:34 Dose: 650 mg Albuterol Sulfate (Albuterol 0.083% Inhal Barbie (2.5 Mg/3 Ml) Ud) 2.5 mg INH RQ4 PRN PRN Reason: Shortness of Breath Albuterol/Ipratropium (Duoneb 3 Mg/0.5 Mg (3 Ml) Ud) 3 ml INH RQ4 PRN PRN Reason: Shortness of Breath Apixaban (Eliquis) 5 mg PO BID JASPER PRN Reason: Protocol Last Admin: 11/02/16 08:28 Dose: 5 mg Aspirin (Ecotrin) 81 mg PO DAILY [facility]EDS [facility] Last Admin: 11/02/16 08:29 Dose: 81 mg Atorvastatin Calcium (Lipitor) 40 mg PO DAILY [facility] 234 [facility]S [facility] Last Admin: 11/02/16 08:28 Dose: 40 mg Benzonatate (Tessalon Perles) 200 mg PO TID PRN PRN Reason: Cough Last Admin: 10/02/16 14:07 Dose: 200 mg Cinacalcet (Sensipar) 30 mg PO DAILY [facility] 234 [facility]S [facility] Last Admin: 11/02/16 08:28 Dose: 30 mg Collagenase (Santyl) 1 applic TOP DAILY [facility] 234 [facility]S [facility] Last Admin: 11/01/16 08:44 Dose: 1 applic Diphenhydramine HCl (Benadryl) 25 mg PO Q6 PRN PRN Reason: Itching / Pruritus Epoetin Tha (Procrit) 20,000 unit IV MWF [facility] 234 [facility]S [facility] Last Admin: 11/01/16 18:09 Dose: 20,000 unit Ergocalciferol (Drisdol 50,000 Intl Units Cap) 1 cap PO Q7D [facility] 234 [facility]S [facility] Stop: 11/06/16 11:16 Last Admin: 10/30/16 13:16 Dose: 1 cap Fluconazole (Diflucan) 100 mg PO DAILY [facility] 234 [facility]S [facility] Last Admin: 11/02/16 08:27 Dose: 100 mg Gabapentin (Neurontin) 300 mg PO TID [facility] 234 [facility]S [facility] Last Admin: 11/02/16 08:27 Dose: 300 mg Hydrocortisone (Anusol-Hc) 1 applic [place] BID PRN PRN Reason: Inflammation Hydromorphone HCl (Dilaudid) 1 mg IVP Q3H PRN PRN Reason: Pain, severe (8-10) Last Admin: 11/02/16 08:56 Dose: 1 mg Amikacin Sulfate 250 mg/ (Sodium Chloride) 101 mls @ 100.609 mls/hr [facility] Last Admin: 11/01/16 19:02 Dose: 100.609 mls/hr Meropenem 500 mg/ Sodium (Chloride) 100 mls @ 100 mls/hr IVPB DAILY@0100 [facility] 234 [facility]EDS [facility] Last Admin: 11/02/16 03:47 Dose: 100 mls/hr Sodium Chloride (Sodium Chloride 0.9%) 1,000 mls @ 10 mls/hr IV .Q24H [facility] 234 [facility]S [facility] Last Admin: 11/01/16 18:04 Dose: 10 mls/hr Piperacillin Sod/Tazobactam (Sod 2.25 gm/ Sodium Chloride) 100 mls @ 100 mls/ hr IVPB Q12@0900,2100 [facility] 234 [facility]S [facility] Last Admin: 11/02/16 08:26 Dose: 100 mls/hr Insulin Detemir (Levemir) 30 units SC HS [facility] 234 [facility]S [facility] Last Admin: 11/01/16 21:53 Dose: 30 units Insulin Human Lispro (Humalog) 8 units SC AC [facility] 234 [facility]S [facility] Last Admin: 11/02/16 08:29 Dose: 8 units Lidocaine (Lidoderm) 1 ea TD DAILY [facility] 234 [facility]S [facility] Last Admin: 11/02/16 08:46 Dose: 1 ea Linezolid (Zyvox) 600 mg PO Q12 [facility] 234 [facility]S [facility] Last Admin: 11/02/16 08:28 Dose: 600 mg Nystatin (Nystop Topical Powder) 1 applic TOP BID [facility] 234 [facility]S [facility] Last Admin: 11/01/16 18:04 Dose: 1 applic Ondansetron HCl (Zofran Inj) 4 mg IVP Q6 PRN PRN Reason: Nausea/Vomiting Last Admin: 09/19/16 10:26 Dose: 4 mg Pantoprazole Sodium (Protonix Ec Tab) 40 mg PO DAILY [facility] 234 [facility]S [facility] Last Admin: 11/01/16 08:43 Dose: 40 mg Phenylephrine HCl (Dagoberto-Synephrine 0.5% Nasal [place]) 1 spry ALLAN Q4 PRN PRN Reason: Nasal congestion Sevelamer HCl (Renagel) 1,600 mg PO TID [facility] 234 BEDS [facility] Last Admin: 11/02/16 08:27 Dose: 1,600 mg Topiramate (Topamax) 50 mg PO BID [facility] 234 [facility]S [facility] Last Admin: 11/02/16 08:28 Dose: 50 mg Vitamin B Complex/Vit C/Folic Acid (Nephro-Ajay) 1 tab PO DAILY [facility] 234 [facility]S [facility] Last Admin: 11/02/16 08:27 Dose: 1 tab - Labs Labs: 10/30/16 16:45 10/25/16 09:30 PT 17.6 Seconds (9.8-13.1) H 10/15/16 07:00 INR 1.5 (0.9-1.2) H 10/15/16 07:00 APTT 36.6 Seconds (25.6-37.1) 10/15/16 07:00 - Constitutional Appears: Non-toxic, No Acute Distress - Respiratory Exam Respiratory Exam: Clear to Ausculation Bilateral, NORMAL BREATHING PATTERN - Cardiovascular Exam Cardiovascular Exam: REGULAR RHYTHM, +S1, +S2 - Extremities Exam Additional comments: right BKA dressing CDI - Neurological Exam Neurological Exam: Alert, Awake Assessment and Plan - Assessment and Plan (Free Text) Assessment: 46F with right BKA, wound requiring wound vac and special wound care Plan: Continue local wound care using enzymatic debridement with Santyl. Continue supportive medical care. Await MRI report Further recs discuss with Dr. Easton Jordan PGY1
--- NOTE | 2016-11-02 11:56 | PN ---
DATE: 11/02/2016 ROOM: 663. SUBJECTIVE: This is a 46-year-old female with recent uncontrolled type 2 insulin-requiring diabetes, now being followed closely for metabolic management. Her glycemic levels are fluctuating, but much improved at this time and the latest chemistries showed a BUN of 46, sodium 144, potassium 4.9, chlor patricia 104, CO2 23, glucose 100, and creatinine 6.5. So, at this time, we will continue the same basal and bolus insulin regimen as ordered to allow for dose equilibration, especially postoperatively afte r a recent right below-knee amputation was undertaken for severe osteomyelitis and peripheral arteria l vasculopathy. We will continue her Humalog given as 8 units subQ t.i.d. before meals and Levemir g iven as 30 units subQ at bedtime daily as given. We will titrate incrementally as indicated to optim ize metabolic control. We will follow and advise accordingly. Irene Ambrose MD cc: [phone] TT: 11/02/2016 11:56:27 Confirmation # [id number] Dictation # [id number] ravinder
[2016-11-02] MEDS: Pantoprazole 40 mg EC Tab PO SCH (12:24)
--- NOTE | 2016-11-02 16:37 | CP.PCM.PN ---
Subjective - Date & Time of Evaluation Date of Evaluation: 11/02/16 Time of Evaluation: 16:35 - Subjective Subjective: Patient is comfortable, awaiting results of MRI of the Right "knee." Surgical note appreciated. DM controlled. - Note by Dr. Ambrose appreciated. Objective - Vital Signs/Intake and Output Vital Signs (last 24 hours): Temp Pulse Resp BP Pulse Ox 98.5 F 108 H 18 89/57 L 98 11/02/16 07:34 11/02/16 07:34 11/02/16 07:34 11/02/16 07:34 11/02/16 07:34 - Medications Medications: Current Medications Acetaminophen (Tylenol 325mg Tab) 650 mg PO Q4 PRN PRN Reason: Fever >100.4 F Last Admin: 10/02/16 16:27 Dose: 650 mg Acetaminophen (Tylenol 325mg Tab) 650 mg PO Q4 PRN PRN Reason: Pain, moderate (4-7) Last Admin: 09/16/16 22:34 Dose: 650 mg Albuterol Sulfate (Albuterol 0.083% Inhal Barbie (2.5 Mg/3 Ml) Ud) 2.5 mg INH RQ4 PRN PRN Reason: Shortness of Breath Albuterol/Ipratropium (Duoneb 3 Mg/0.5 Mg (3 Ml) Ud) 3 ml INH RQ4 PRN PRN Reason: Shortness of Breath Apixaban (Eliquis) 5 mg PO BID JASPER PRN Reason: Protocol Last Admin: 11/02/16 08:28 Dose: 5 mg Aspirin (Ecotrin) 81 mg PO DAILY [facility] Last Admin: 11/02/16 08:29 Dose: 81 mg Atorvastatin Calcium (Lipitor) 40 mg PO DAILY [facility] Last Admin: 11/02/16 08:28 Dose: 40 mg Benzonatate (Tessalon Perles) 200 mg PO TID PRN PRN Reason: Cough Last Admin: 10/02/16 14:07 Dose: 200 mg Cinacalcet (Sensipar) 30 mg PO DAILY [facility] Last Admin: 11/02/16 08:28 Dose: 30 mg Collagenase (Santyl) 1 applic TOP DAILY [facility] Last Admin: 11/02/16 09:00 Dose: 1 applic Diphenhydramine HCl (Benadryl) 25 mg PO Q6 PRN PRN Reason: Itching / Pruritus Epoetin Tha (Procrit) 20,000 unit IV MWF [facility] Last Admin: 11/01/16 18:09 Dose: 20,000 unit Ergocalciferol (Drisdol 50,000 Intl Units Cap) 1 cap PO Q7D [facility] Stop: 11/06/16 11:16 Last Admin: 10/30/16 13:16 Dose: 1 cap Fluconazole (Diflucan) 100 mg PO DAILY [facility] Last Admin: 11/02/16 08:27 Dose: 100 mg Gabapentin (Neurontin) 300 mg PO TID [facility] Last Admin: 11/02/16 12:25 Dose: 300 mg Hydrocortisone (Anusol-Hc) 1 applic [place] BID PRN PRN Reason: Inflammation Hydromorphone HCl (Dilaudid) 1 mg IVP Q3H PRN PRN Reason: Pain, severe (8-10) Last Admin: 11/02/16 14:28 Dose: 1 mg Amikacin Sulfate 250 mg/ (Sodium Chloride) 101 mls @ 100.609 mls/hr [place] [facility] [place] Admin: 11/01/16 19:02 Dose: 100.609 mls/hr Meropenem 500 mg/ Sodium (Chloride) 100 mls @ 100 mls/hr IVPB DAILY@0100 [facility] Last Admin: 11/02/16 03:47 Dose: 100 mls/hr Sodium Chloride (Sodium Chloride 0.9%) 1,000 mls @ 10 mls/hr IV .Q24H [facility] Last Admin: 11/01/16 18:04 Dose: 10 mls/hr Piperacillin Sod/Tazobactam (Sod 2.25 gm/ Sodium Chloride) 100 mls @ 100 mls/ hr IVPB Q12@0900,2100 [facility] Last Admin: 11/02/16 08:26 Dose: 100 mls/hr Insulin Detemir (Levemir) 30 units SC HS [facility] Last Admin: 11/01/16 21:53 Dose: 30 units Insulin Human Lispro (Humalog) 8 units SC AC [facility] Last Admin: 11/02/16 12:26 Dose: 8 units Lidocaine (Lidoderm) 1 ea TD DAILY [facility] Last Admin: 11/02/16 08:46 Dose: 1 ea Linezolid (Zyvox) 600 mg PO Q12 [facility] Last Admin: 11/02/16 08:28 Dose: 600 mg Nystatin (Nystop Topical Powder) 1 applic TOP BID [facility] Last Admin: 11/02/16 12:25 Dose: 1 applic Ondansetron HCl (Zofran Inj) 4 mg IVP Q6 PRN PRN Reason: Nausea/Vomiting Last Admin: 09/19/16 10:26 Dose: 4 mg Pantoprazole Sodium (Protonix Ec Tab) 40 mg PO DAILY [facility] Last Admin: 11/02/16 12:24 Dose: 40 mg Phenylephrine HCl (Dagoberto-Synephrine 0.5% Nasal [place]) 1 spry ALLAN Q4 PRN PRN Reason: Nasal congestion Sevelamer HCl (Renagel) 1,600 mg PO TID [facility] Last Admin: 11/02/16 12:25 Dose: 1,600 mg Topiramate (Topamax) 50 mg PO BID [facility] Last Admin: 11/02/16 08:28 Dose: 50 mg Vitamin B Complex/Vit C/Folic Acid (Nephro-Ajay) 1 tab PO DAILY [facility] Last Admin: 11/02/16 08:27 Dose: 1 tab - Labs Labs: 10/30/16 16:45 10/25/16 09:30 PT 17.6 Seconds (9.8-13.1) H 10/15/16 07:00 INR 1.5 (0.9-1.2) H 10/15/16 07:00 APTT 36.6 Seconds (25.6-37.1) 10/15/16 07:00 - Constitutional Appears: No Acute Distress - Head Exam Head Exam: NORMAL INSPECTION - ENT Exam ENT Exam: Mucous Membranes Moist - Neck Exam Neck Exam: Normal Inspection - Respiratory Exam Respiratory Exam: Clear to Ausculation Bilateral, NORMAL BREATHING PATTERN - Cardiovascular Exam Cardiovascular Exam: REGULAR RHYTHM, +S1, +S2 - GI/Abdominal Exam GI & Abdominal Exam: Soft - Extremities Exam Additional comments: Dressing intact on right residual limb. - Back Exam Back Exam: NORMAL INSPECTION - Neurological Exam Neurological Exam: Alert, Awake, Oriented x3 - Psychiatric Exam Psychiatric exam: Normal Affect, Normal Mood - Skin Skin Exam: Dry, Normal Color, Warm Assessment and Plan (1) Status post below knee amputation of right lower extremity Assessment & Plan: Continue present medications pending MRI report. Status: Acute (2) ESRD (end stage renal disease) on dialysis Status: Chronic (3) DM type 2 (diabetes mellitus, type 2) Status: Chronic (4) Coagulopathy Status: Chronic (5) Peripheral arterial occlusive disease Status: Chronic
[2016-11-02] MEDS: Sodium Chloride 0.9% 1,000 ML IV SCH (17:09)
[2016-11-02] MEDS: Insulin Detemir 100 Units/ml Inj SC SCH (21:21)
[2016-11-03] MEDS: Meropenem 500 MG in Sodium Chloride 0.9% 100 ML IVPB SCH (01:08)
--- NOTE | 2016-11-03 07:03 | CP.PCM.PN ---
<Pacheco Jordan - Last Filed: 11/03/16 07:02> Subjective - Date & Time of Evaluation Date of Evaluation: 11/03/16 Time of Evaluation: 07:02 - Subjective Subjective: SURGERY NOTE FOR DR. MCCORMACK 46F seen and examined at bedside. Patient resting comfortable. Objective - Vital Signs/Intake and Output Vital Signs (last 24 hours): Temp Pulse Resp BP Pulse Ox 97.4 F L 108 H 19 109/51 L 96 11/03/16 00:55 11/03/16 00:55 11/03/16 00:55 11/03/16 00:55 11/03/16 00:55 - Medications Medications: Current Medications Acetaminophen (Tylenol 325mg Tab) 650 mg PO Q4 PRN PRN Reason: Fever >100.4 F Last Admin: 10/02/16 16:27 Dose: 650 mg Acetaminophen (Tylenol 325mg Tab) 650 mg PO Q4 PRN PRN Reason: Pain, moderate (4-7) Last Admin: 09/16/16 22:34 Dose: 650 mg Albuterol Sulfate (Albuterol 0.083% Inhal Barbie (2.5 Mg/3 Ml) Ud) 2.5 mg INH RQ4 PRN PRN Reason: Shortness of Breath Albuterol/Ipratropium (Duoneb 3 Mg/0.5 Mg (3 Ml) Ud) 3 ml INH RQ4 PRN PRN Reason: Shortness of Breath Apixaban (Eliquis) 5 mg PO BID JASPER PRN Reason: Protocol Last Admin: 11/02/16 17:09 Dose: 5 mg Aspirin (Ecotrin) 81 mg PO DAILY [facility] Last Admin: 11/02/16 08:29 Dose: 81 mg Atorvastatin Calcium (Lipitor) 40 mg PO DAILY [facility] Last Admin: 11/02/16 08:28 Dose: 40 mg Benzonatate (Tessalon Perles) 200 mg PO TID PRN PRN Reason: Cough Last Admin: 10/02/16 14:07 Dose: 200 mg Cinacalcet (Sensipar) 30 mg PO DAILY [facility] Last Admin: 11/02/16 08:28 Dose: 30 mg Collagenase (Santyl) 1 applic TOP DAILY [facility] Last Admin: 11/02/16 09:00 Dose: 1 applic Diphenhydramine HCl (Benadryl) 25 mg PO Q6 PRN PRN Reason: Itching / Pruritus Epoetin Tha (Procrit) 20,000 unit IV MWF [facility] Last Admin: 11/01/16 18:09 Dose: 20,000 unit Ergocalciferol (Drisdol 50,000 Intl Units Cap) 1 cap PO Q7D [facility] Stop: 11/06/16 11:16 Last Admin: 10/30/16 13:16 Dose: 1 cap Fluconazole (Diflucan) 100 mg PO DAILY [facility] Last Admin: 11/02/16 08:27 Dose: 100 mg Gabapentin (Neurontin) 300 mg PO TID [facility] Last Admin: 11/02/16 17:09 Dose: 300 mg Hydrocortisone (Anusol-Hc) 1 applic [place] BID PRN PRN Reason: Inflammation Hydromorphone HCl (Dilaudid) 1 mg IVP Q3H PRN PRN Reason: Pain, severe (8-10) Last Admin: 11/03/16 06:24 Dose: 1 mg Amikacin Sulfate 250 mg/ (Sodium Chloride) 101 mls @ 100.609 mls/hr IVPB [facility] [place] Last Admin: 11/01/16 19:02 Dose: 100.609 mls/hr Meropenem 500 mg/ Sodium (Chloride) 100 mls @ 100 mls/hr IVPB DAILY@0100 [facility] Last Admin: 11/03/16 01:08 Dose: 100 mls/hr Sodium Chloride (Sodium Chloride 0.9%) 1,000 mls @ 10 mls/hr IV .Q24H [facility] Last Admin: 11/02/16 17:09 Dose: 10 mls/hr Piperacillin Sod/Tazobactam (Sod 2.25 gm/ Sodium Chloride) 100 mls @ 100 mls/ hr IVPB Q12@0900,2100 [facility] Last Admin: 11/02/16 21:20 Dose: 100 mls/hr Insulin Detemir (Levemir) 30 units SC HS [facility] Last Admin: 11/02/16 21:21 Dose: 30 units Insulin Human Lispro (Humalog) 8 units SC AC [facility] Last Admin: 11/02/16 17:10 Dose: 8 units Lidocaine (Lidoderm) 1 ea TD DAILY [facility] Last Admin: 11/02/16 08:46 Dose: 1 ea Linezolid (Zyvox) 600 mg PO Q12 [facility] Last Admin: 11/02/16 21:21 Dose: 600 mg Nystatin (Nystop Topical Powder) 1 applic TOP BID [facility] Last Admin: 11/02/16 17:10 Dose: 1 applic Ondansetron HCl (Zofran Inj) 4 mg IVP Q6 PRN PRN Reason: Nausea/Vomiting Last Admin: 09/19/16 10:26 Dose: 4 mg Pantoprazole Sodium (Protonix Ec Tab) 40 mg PO DAILY [facility] Last Admin: 11/02/16 12:24 Dose: 40 mg Phenylephrine HCl (Dagoberto-Synephrine 0.5% Nasal [place]) 1 spry ALLAN Q4 PRN PRN Reason: Nasal congestion Sevelamer HCl (Renagel) 1,600 mg PO TID [facility] Last Admin: 11/02/16 17:08 Dose: 1,600 mg Topiramate (Topamax) 50 mg PO BID [facility] Last Admin: 11/02/16 17:09 Dose: 50 mg Vitamin B Complex/Vit C/Folic Acid (Nephro-Ajay) 1 tab PO DAILY [facility] Last Admin: 11/02/16 08:27 Dose: 1 tab - Labs Labs: 10/30/16 16:45 10/25/16 09:30 PT 17.6 Seconds (9.8-13.1) H 10/15/16 07:00 INR 1.5 (0.9-1.2) H 10/15/16 07:00 APTT 36.6 Seconds (25.6-37.1) 10/15/16 07:00 - Constitutional Appears: Non-toxic, No Acute Distress - Respiratory Exam Respiratory Exam: Clear to Ausculation Bilateral, NORMAL BREATHING PATTERN - Cardiovascular Exam Cardiovascular Exam: REGULAR RHYTHM, +S1, +S2 - Extremities Exam Additional comments: right BKA dressing CDI with brace Assessment and Plan - Assessment and Plan (Free Text) Assessment: 46F with right BKA, wound requiring wound vac and special wound care Plan: Continue local wound care using enzymatic debridement with Santyl. Continue supportive medical care. Still awaiting MRI report Further recs discuss with Dr. Easton Jordan PGY1 <Raffy Mccormack - Last Filed: 11/03/16 11:32> Objective - Vital Signs/Intake and Output Vital Signs (last 24 hours): Temp Pulse Resp BP Pulse Ox 97.5 F L 113 H 18 137/68 94 L 11/03/16 07:51 11/03/16 07:51 11/03/16 07:51 11/03/16 07:51 11/03/16 07:51 - Medications Medications: Current Medications Acetaminophen (Tylenol 325mg Tab) 650 mg PO Q4 PRN PRN Reason: Fever >100.4 F Last Admin: 10/02/16 16:27 Dose: 650 mg Acetaminophen (Tylenol 325mg Tab) 650 mg PO Q4 PRN PRN Reason: Pain, moderate (4-7) Last Admin: 09/16/16 22:34 Dose: 650 mg Albuterol Sulfate (Albuterol 0.083% Inhal Barbie (2.5 Mg/3 Ml) Ud) 2.5 mg INH RQ4 PRN PRN Reason: Shortness of Breath Albuterol/Ipratropium (Duoneb 3 Mg/0.5 Mg (3 Ml) Ud) 3 ml INH RQ4 PRN PRN Reason: Shortness of Breath Apixaban (Eliquis) 5 mg PO BID [facility] PRN Reason: Protocol Last Admin: 11/03/16 08:22 Dose: 5 mg Aspirin (Ecotrin) 81 mg PO DAILY [facility] Last Admin: 11/03/16 08:22 Dose: 81 mg Atorvastatin Calcium (Lipitor) 40 mg PO DAILY [facility] Last Admin: 11/03/16 08:22 Dose: 40 mg Benzonatate (Tessalon Perles) 200 mg PO TID PRN PRN Reason: Cough Last Admin: 10/02/16 14:07 Dose: 200 mg Cinacalcet (Sensipar) 30 mg PO DAILY [facility] Last Admin: 11/03/16 08:22 Dose: 30 mg Collagenase (Santyl) 1 applic TOP DAILY [facility] Last Admin: 11/03/16 08:24 Dose: 1 applic Diphenhydramine HCl (Benadryl) 25 mg PO Q6 PRN PRN Reason: Itching / Pruritus Epoetin Tha (Procrit) 20,000 unit IV MWF [facility] Last Admin: 11/01/16 18:09 Dose: 20,000 unit Ergocalciferol (Drisdol 50,000 Intl Units Cap) 1 cap PO Q7D [facility] Stop: 11/06/16 11:16 Last Admin: 10/30/16 13:16 Dose: 1 cap Fluconazole (Diflucan) 100 mg PO DAILY [facility] Last Admin: 11/03/16 08:21 Dose: 100 mg Gabapentin (Neurontin) 300 mg PO TID [facility] Last Admin: 11/03/16 08:22 Dose: 300 mg Hydrocortisone (Anusol-Hc) 1 applic [place] BID PRN PRN Reason: Inflammation Hydromorphone HCl (Dilaudid) 1 mg IVP Q3H PRN PRN Reason: Pain, severe (8-10) Last Admin: 11/03/16 10:31 Dose: 1 mg Amikacin Sulfate 250 mg/ (Sodium Chloride) 101 mls @ 100.609 mls/hr IVPB MWF [facility] Last Admin: 11/01/16 19:02 Dose: 100.609 mls/hr Meropenem 500 mg/ Sodium (Chloride) 100 mls @ 100 mls/hr IVPB DAILY@0100 [facility] Last Admin: 11/03/16 01:08 Dose: 100 mls/hr Sodium Chloride (Sodium Chloride 0.9%) 1,000 mls @ 10 mls/hr IV .Q24H [facility] Last Admin: 11/02/16 17:09 Dose: 10 mls/hr Piperacillin Sod/Tazobactam (Sod 2.25 gm/ Sodium Chloride) 100 mls @ 100 mls/ hr IVPB Q12@0900,2100 [facility] Last Admin: 11/03/16 08:24 Dose: 100 mls/hr Insulin Detemir (Levemir) 30 units SC HS [facility] Last Admin: 11/02/16 21:21 Dose: 30 units Insulin Human Lispro (Humalog) 8 units SC AC [facility] Last Admin: 11/03/16 08:23 Dose: 8 units Lidocaine (Lidoderm) 1 ea TD DAILY [facility] Last Admin: 11/03/16 08:23 Dose: 1 ea Linezolid (Zyvox) 600 mg PO Q12 [facility] Last Admin: 11/03/16 08:21 Dose: 600 mg Nystatin (Nystop Topical Powder) 1 applic TOP BID [facility] Last Admin: 11/03/16 08:23 Dose: 1 applic Ondansetron HCl (Zofran Inj) 4 mg IVP Q6 PRN PRN Reason: Nausea/Vomiting Last Admin: 05/11/17 10:26 Dose: 4 mg Pantoprazole Sodium (Protonix Ec Tab) 40 mg PO DAILY [facility] Last Admin: 11/03/16 08:21 Dose: 40 mg Phenylephrine HCl (Dagoberto-Synephrine 0.5% Nasal [place]) 1 spry ALLAN Q4 PRN PRN Reason: Nasal congestion Sevelamer HCl (Renagel) 1,600 mg PO TID [facility] Last Admin: 11/03/16 08:21 Dose: 1,600 mg Topiramate (Topamax) 50 mg PO BID [facility] Last Admin: 11/03/16 08:24 Dose: 50 mg Vitamin B Complex/Vit C/Folic Acid (Nephro-Ajay) 1 tab PO DAILY [facility] Last Admin: 11/03/16 08:22 Dose: 1 tab - Labs Labs: 10/30/16 16:45 10/25/16 09:30 PT 17.6 Seconds (9.8-13.1) H 10/15/16 07:00 INR 1.5 (0.9-1.2) H 10/15/16 07:00 APTT 36.6 Seconds (25.6-37.1) 10/15/16 07:00 Assessment and Plan - Assessment and Plan (Free Text) Plan: Patient seen and right BKA wound was examined. Overall, patient remained clinically stable, afebrile with vital signs at the baseline. She has no immediate or acute complaints. There is no increased pain or tenderness in the right BKA stump. Right BKA wound does not appear grossly infected - there is no foul odor, significant tissue necrosis, purulence, krystal pus, erythema, cellulitis. There is granulation tissue formation at the lateral and mid aspects of the wound. MRI was done with report still pending. Wound culture results from right BKA stump are noted. Continue current medical care. Right BKA enzymatic debridement with Santyl for now.
[2016-11-03] MEDS: Pantoprazole 40 mg EC Tab PO SCH (08:21)
[2016-11-03] MEDS: Multivitamin Vitamin B Complex (Nephro-Vite) Tab PO SCH (08:22)
[2016-11-03] MEDS: Insulin Lispro (humaLOG) 100 Units/ml Inj SC SCH ×3 (08:23→17:17)
[2016-11-03] MEDS: Lidocaine 5% Patch TD SCH (08:23)
[2016-11-03] MEDS: Santyl Collagenase OINTMENT TOP SCH (08:24)
--- NOTE | 2016-11-03 09:18 | PN ---
DATE: 11/03/2016 ROOM: 663 This is a 46-year-old female with recent uncontrolled type 2 insulin-requiring diabetes, now being fo llowed closely postoperatively for metabolic management. She underwent a right below-knee amputation for severe right heel osteomyelitis and underlying peripheral vasculopathy. Her glycemic levels are much improved at this time and the latest chemistries showed a BUN of 46, sodium 144, potassium 4.9, chloride 104, CO2 of 23, glucose 100, and creatinine 6.5. So, at this time, we will continue the same basal and bolus insulin regimen as given with Humalog giv en as 8 units subQ t.i.d. before meals and Levemir given as 30 units subQ at bedtime daily as given. We will titrate incrementally as indicated to optimize metabolic control. We will obtain serial tasha mistries and supplement accordingly as needed. We will follow. Irene Ambrose MD cc: [id number] TT: 11/03/2016 09:17:57 Confirmation # [id number] Dictation # [id number] sn
[2016-11-03] MEDS: Sodium Chloride 0.9% 1,000 ML IV SCH (18:16)
[2016-11-03] MEDS: Insulin Detemir 100 Units/ml Inj SC SCH (21:19)
--- NOTE | 2016-11-04 00:02 | CP.PCM.PN ---
Subjective - Date & Time of Evaluation Date of Evaluation: 11/03/16 Time of Evaluation: 20:35 - Subjective Subjective: MRI of Right Knee is performed for further management. Her Blood sugar is managed by Dr Ambrose ESRD on Hemodialysis. Creatinine is responding after dialysis, then it is up again the following day. No seizures on Topamax 50 mg Q12 hrs. She is interactive, awake, alert and oriented. Objective - Vital Signs/Intake and Output Vital Signs (last 24 hours): Temp Pulse Resp BP Pulse Ox 98.0 F 111 H 18 108/65 93 L 11/03/16 15:28 11/03/16 15:28 11/03/16 15:28 11/03/16 15:28 11/03/16 15:28 - Medications Medications: Current Medications Acetaminophen (Tylenol 325mg Tab) 650 mg PO Q4 PRN PRN Reason: Fever >100.4 F Last Admin: 10/02/16 16:27 Dose: 650 mg Acetaminophen (Tylenol 325mg Tab) 650 mg PO Q4 PRN PRN Reason: Pain, moderate (4-7) Last Admin: 09/16/16 22:34 Dose: 650 mg Albuterol Sulfate (Albuterol 0.083% Inhal Barbie (2.5 Mg/3 Ml) Ud) 2.5 mg INH RQ4 PRN PRN Reason: Shortness of Breath Albuterol/Ipratropium (Duoneb 3 Mg/0.5 Mg (3 Ml) Ud) 3 ml INH RQ4 PRN PRN Reason: Shortness of Breath Apixaban (Eliquis) 5 mg PO BID JASPER PRN Reason: Protocol Last Admin: 11/03/16 17:16 Dose: 5 mg Aspirin (Ecotrin) 81 mg PO DAILY [facility] Last Admin: 11/03/16 08:22 Dose: 81 mg Atorvastatin Calcium (Lipitor) 40 mg PO DAILY [facility] Last Admin: 11/03/16 08:22 Dose: 40 mg Benzonatate (Tessalon Perles) 200 mg PO TID PRN PRN Reason: Cough Last Admin: 10/02/16 14:07 Dose: 200 mg Cinacalcet (Sensipar) 30 mg PO DAILY [facility] Last Admin: 11/03/16 08:22 Dose: 30 mg Collagenase (Santyl) 1 applic TOP DAILY [facility] Last Admin: 11/03/16 08:24 Dose: 1 applic Diphenhydramine HCl (Benadryl) 25 mg PO Q6 PRN PRN Reason: Itching / Pruritus Epoetin Tha (Procrit) 20,000 unit IV MWF [facility] Last Admin: 11/01/16 18:09 Dose: 20,000 unit Ergocalciferol (Drisdol 50,000 Intl Units Cap) 1 cap PO Q7D [facility] Stop: 11/06/16 11:16 Last Admin: 10/30/16 13:16 Dose: 1 cap Fluconazole (Diflucan) 100 mg PO DAILY [facility] Last Admin: 11/03/16 08:21 Dose: 100 mg Gabapentin (Neurontin) 300 mg PO TID [facility] Last Admin: 11/03/16 17:16 Dose: 300 mg Hydrocortisone (Anusol-Hc) 1 applic [place] BID PRN PRN Reason: Inflammation Hydromorphone HCl (Dilaudid) 1 mg IVP Q3H PRN PRN Reason: Pain, severe (8-10) Last Admin: 11/03/16 21:38 Dose: 1 mg Amikacin Sulfate 250 mg/ (Sodium Chloride) 101 mls @ 100.609 mls/hr IVPB [facility] [place] Last Admin: 11/01/16 19:02 Dose: 100.609 mls/hr Meropenem 500 mg/ Sodium (Chloride) 100 mls @ 100 mls/hr IVPB DAILY@0100 [facility] Last Admin: 11/03/16 01:08 Dose: 100 mls/hr Sodium Chloride (Sodium Chloride 0.9%) 1,000 mls @ 10 mls/hr IV .Q24H [facility] Last Admin: 11/03/16 18:16 Dose: Not Given Piperacillin Sod/Tazobactam (Sod 2.25 gm/ Sodium Chloride) 100 mls @ 100 mls/ hr IVPB Q12@0900,2100 [facility] Last Admin: 11/03/16 21:20 Dose: 100 mls/hr Insulin Detemir (Levemir) 30 units SC HS [facility] Last Admin: 11/03/16 21:19 Dose: 30 units Insulin Human Lispro (Humalog) 8 units SC AC [facility] Last Admin: 11/03/16 17:17 Dose: 8 units Lidocaine (Lidoderm) 1 ea TD DAILY [facility] Last Admin: 11/03/16 08:23 Dose: 1 ea Linezolid (Zyvox) 600 mg PO Q12 [facility] Last Admin: 11/03/16 21:21 Dose: 600 mg Nystatin (Nystop Topical Powder) 1 applic TOP BID [facility] Last Admin: 11/03/16 17:16 Dose: 1 applic Ondansetron HCl (Zofran Inj) 4 mg IVP Q6 PRN PRN Reason: Nausea/Vomiting Last Admin: 09/19/16 10:26 Dose: 4 mg Pantoprazole Sodium (Protonix Ec Tab) 40 mg PO DAILY [facility] Last Admin: 11/03/16 08:21 Dose: 40 mg Phenylephrine HCl (Dagoberto-Synephrine 0.5% Nasal [place]) 1 spry ALLAN Q4 PRN PRN Reason: Nasal congestion Sevelamer HCl (Renagel) 1,600 mg PO TID [facility] Last Admin: 11/03/16 17:16 Dose: 1,600 mg Topiramate (Topamax) 50 mg PO BID [facility] Last Admin: 11/03/16 17:16 Dose: 50 mg Vitamin B Complex/Vit C/Folic Acid (Nephro-Ajay) 1 tab PO DAILY [facility] Last Admin: 11/03/16 08:22 Dose: 1 tab - Labs Labs: 10/30/16 16:45 10/25/16 09:30 PT 17.6 Seconds (9.8-13.1) H 10/15/16 07:00 INR 1.5 (0.9-1.2) H 10/15/16 07:00 APTT 36.6 Seconds (25.6-37.1) 10/15/16 07:00 Assessment and Plan (1) Diabetes Status: Chronic (2) ESRD (end stage renal disease) Status: Chronic (3) Cellulitis of leg Status: Chronic (4) Hyperlipidemia Status: Chronic (5) Back pain Status: Acute (6) Bacteremia due to Gram-negative bacteria Status: Acute (7) Diabetes mellitus type 2 with peripheral artery disease Status: Acute (8) PVD (peripheral vascular disease) Status: Acute (9) Osteomyelitis of right foot Status: Acute (10) Fungal infection right foot Status: Acute
[2016-11-04] MEDS: Meropenem 500 MG in Sodium Chloride 0.9% 100 ML IVPB SCH (00:41)
--- NOTE | 2016-11-04 08:02 | CP.PCM.PN ---
<ChanelAshlyEsperanza - Last Filed: 11/04/16 07:59> Subjective - Date & Time of Evaluation Date of Evaluation: 11/04/16 Time of Evaluation: 08:00 - Subjective Subjective: SURGERY NOTE FOR DR. MCCORMACK 46 yo Female patient 5 weeks s/p Right BKA was seen and examined at bedside this AM. Patient is resting well with dressings intact to right foot. Patient denies of N/V/F/C or SOB Objective - Vital Signs/Intake and Output Vital Signs (last 24 hours): Temp Pulse Resp BP Pulse Ox 97.9 F 106 H 18 97/49 L 96 11/04/16 00:33 11/04/16 00:33 11/04/16 00:33 11/04/16 00:33 11/04/16 00:33 - Medications Medications: Current Medications Acetaminophen (Tylenol 325mg Tab) 650 mg PO Q4 PRN PRN Reason: Fever >100.4 F Last Admin: 10/02/16 16:27 Dose: 650 mg Acetaminophen (Tylenol 325mg Tab) 650 mg PO Q4 PRN PRN Reason: Pain, moderate (4-7) Last Admin: 09/16/16 22:34 Dose: 650 mg Albuterol Sulfate (Albuterol 0.083% Inhal Barbie (2.5 Mg/3 Ml) Ud) 2.5 mg INH RQ4 PRN PRN Reason: Shortness of Breath Albuterol/Ipratropium (Duoneb 3 Mg/0.5 Mg (3 Ml) Ud) 3 ml INH RQ4 PRN PRN Reason: Shortness of Breath Apixaban (Eliquis) 5 mg PO BID JASPER PRN Reason: Protocol Last Admin: 11/03/16 17:16 Dose: 5 mg Aspirin (Ecotrin) 81 mg PO DAILY [facility] Last Admin: 11/03/16 08:22 Dose: 81 mg Atorvastatin Calcium (Lipitor) 40 mg PO DAILY [facility] Last Admin: 11/03/16 08:22 Dose: 40 mg Benzonatate (Tessalon Perles) 200 mg PO TID PRN PRN Reason: Cough Last Admin: 10/02/16 14:07 Dose: 200 mg Cinacalcet (Sensipar) 30 mg PO DAILY [facility] Last Admin: 11/03/16 08:22 Dose: 30 mg Collagenase (Santyl) 1 applic TOP DAILY [facility] Last Admin: 11/03/16 08:24 Dose: 1 applic Diphenhydramine HCl (Benadryl) 25 mg PO Q6 PRN PRN Reason: Itching / Pruritus Epoetin Tha (Procrit) 20,000 unit IV MWF [facility] Last Admin: 11/01/16 18:09 Dose: 20,000 unit Ergocalciferol (Drisdol 50,000 Intl Units Cap) 1 cap PO Q7D [facility] Stop: 11/06/16 11:16 Last Admin: 10/30/16 13:16 Dose: 1 cap Fluconazole (Diflucan) 100 mg PO DAILY [facility] Last Admin: 11/03/16 08:21 Dose: 100 mg Gabapentin (Neurontin) 300 mg PO TID [facility] Last Admin: 11/03/16 17:16 Dose: 300 mg Hydrocortisone (Anusol-Hc) 1 applic NE BID PRN PRN Reason: Inflammation Hydromorphone HCl (Dilaudid) 1 mg IVP Q3H PRN PRN Reason: Pain, severe (8-10) Last Admin: 11/04/16 05:24 Dose: 1 mg Amikacin Sulfate 250 mg/ (Sodium Chloride) 101 mls @ 100.609 mls/hr IVPB [facility] Last Admin: 11/01/16 19:02 Dose: 100.609 mls/hr Meropenem 500 mg/ Sodium (Chloride) 100 mls @ 100 mls/hr IVPB DAILY@0100 [facility] Last Admin: 11/04/16 00:41 Dose: 100 mls/hr Sodium Chloride (Sodium Chloride 0.9%) 1,000 mls @ 10 mls/hr IV .Q24H [facility] Last Admin: 11/03/16 18:16 Dose: Not Given Piperacillin Sod/Tazobactam (Sod 2.25 gm/ Sodium Chloride) 100 mls @ 100 mls/ hr IVPB Q12@0900,2100 [facility] Last Admin: 11/03/16 21:20 Dose: 100 mls/hr Insulin Detemir (Levemir) 30 units SC HS [facility] Last Admin: 11/03/16 21:19 Dose: 30 units Insulin Human Lispro (Humalog) 8 units SC AC [facility] Last Admin: 11/03/16 17:17 Dose: 8 units Lidocaine (Lidoderm) 1 ea TD DAILY [facility] Last Admin: 11/03/16 08:23 Dose: 1 ea Linezolid (Zyvox) 600 mg PO Q12 [facility] Last Admin: 11/03/16 21:21 Dose: 600 mg Nystatin (Nystop Topical Powder) 1 applic TOP BID [facility] Last Admin: 11/03/16 17:16 Dose: 1 applic Ondansetron HCl (Zofran Inj) 4 mg IVP Q6 PRN PRN Reason: Nausea/Vomiting Last Admin: 09/19/16 10:26 Dose: 4 mg Pantoprazole Sodium (Protonix Ec Tab) 40 mg PO DAILY [facility] Last Admin: 11/03/16 08:21 Dose: 40 mg Phenylephrine HCl (Dagoberto-Synephrine 0.5% Nasal [place]) 1 spry ALLAN Q4 PRN PRN Reason: Nasal congestion Sevelamer HCl (Renagel) 1,600 mg PO TID [facility] Last Admin: 11/03/16 17:16 Dose: 1,600 mg Topiramate (Topamax) 50 mg PO BID [facility] Last Admin: 11/03/16 17:16 Dose: 50 mg Vitamin B Complex/Vit C/Folic Acid (Nephro-Ajay) 1 tab PO DAILY [facility] Last Admin: 11/03/16 08:22 Dose: 1 tab - Labs Labs: 10/30/16 16:45 10/25/16 09:30 PT 17.6 Seconds (9.8-13.1) H 10/15/16 07:00 INR 1.5 (0.9-1.2) H 10/15/16 07:00 APTT 36.6 Seconds (25.6-37.1) 10/15/16 07:00 - Constitutional Appears: Well, Non-toxic, No Acute Distress - Extremities Exam Additional comments: right BKA -Mild sanguinous strikethrough to lateral aspect of dressing - Neurological Exam Neurological Exam: Alert, Awake, Oriented x3 - Psychiatric Exam Psychiatric exam: Normal Affect, Normal Mood - Skin Skin Exam: Normal Color, Warm Assessment and Plan - Assessment and Plan (Free Text) Assessment: 46 F 4 weeks s/p Right BKA presenting with wound dehiscence Plan: Continue local wound care using enzymatic debridement with Santyl. Continue supportive medical care. Awaiting MRI report Further recs discuss with Dr. Mccormack <Raffy Mccormack - Last Filed: 11/04/16 13:11> Subjective - Subjective Subjective: Patient remains clinically stable. Right BKA stump shows no infection grossly. There is good granulation tissue formation. Continue enzymatic debridement with Santyl. Objective - Vital Signs/Intake and Output Vital Signs (last 24 hours): Temp Pulse Resp BP Pulse Ox 98 F 105 H 20 126/56 L 99 11/04/16 08:40 11/04/16 08:40 11/04/16 08:40 11/04/16 08:40 11/04/16 08:40 - Medications Medications: Current Medications Acetaminophen (Tylenol 325mg Tab) 650 mg PO Q4 PRN PRN Reason: Fever >100.4 F Last Admin: 10/02/16 16:27 Dose: 650 mg Acetaminophen (Tylenol 325mg Tab) 650 mg PO Q4 PRN PRN Reason: Pain, moderate (4-7) Last Admin: 09/16/16 22:34 Dose: 650 mg Albuterol Sulfate (Albuterol 0.083% Inhal Barbie (2.5 Mg/3 Ml) Ud) 2.5 mg INH RQ4 PRN PRN Reason: Shortness of Breath Albuterol/Ipratropium (Duoneb 3 Mg/0.5 Mg (3 Ml) Ud) 3 ml INH RQ4 PRN PRN Reason: Shortness of Breath Apixaban (Eliquis) 5 mg PO BID JASPER PRN Reason: Protocol Last Admin: 11/04/16 08:53 Dose: 5 mg Aspirin (Ecotrin) 81 mg PO DAILY [facility] Last Admin: 11/04/16 08:54 Dose: 81 mg Atorvastatin Calcium (Lipitor) 40 mg PO DAILY [facility] Last Admin: 11/04/16 08:53 Dose: 40 mg Benzonatate (Tessalon Perles) 200 mg PO TID PRN PRN Reason: Cough Last Admin: 10/02/16 14:07 Dose: 200 mg Cinacalcet (Sensipar) 30 mg PO DAILY [facility] Last Admin: 11/04/16 08:53 Dose: 30 mg Collagenase (Santyl) 1 applic TOP DAILY [facility] Last Admin: 11/04/16 08:53 Dose: 1 applic Diphenhydramine HCl (Benadryl) 25 mg PO Q6 PRN PRN Reason: Itching / Pruritus Epoetin Tha (Procrit) 20,000 unit IV MWF [facility] Last Admin: 11/01/16 18:09 Dose: 20,000 unit Ergocalciferol (Drisdol 50,000 Intl Units Cap) 1 cap PO Q7D [facility] Stop: 11/06/16 11:16 Last Admin: 10/30/16 13:16 Dose: 1 cap Fluconazole (Diflucan) 100 mg PO DAILY [facility] Last Admin: 11/04/16 08:52 Dose: 100 mg Gabapentin (Neurontin) 300 mg PO TID [facility] Last Admin: 11/04/16 08:51 Dose: 300 mg Hydrocortisone (Anusol-Hc) 1 applic NE BID PRN PRN Reason: Inflammation Hydromorphone HCl (Dilaudid) 1 mg IVP Q3H PRN PRN Reason: Pain, severe (8-10) Last Admin: 11/04/16 09:54 Dose: 1 mg Amikacin Sulfate 250 mg/ (Sodium Chloride) 101 mls @ 100.609 mls/hr IVPB [facility] Last Admin: 11/04/16 09:59 Dose: 100.609 mls/hr Meropenem 500 mg/ Sodium (Chloride) 100 mls @ 100 mls/hr IVPB DAILY@0100 [facility] Last Admin: 11/04/16 00:41 Dose: 100 mls/hr Sodium Chloride (Sodium Chloride 0.9%) 1,000 mls @ 10 mls/hr IV .Q24H [facility] Last Admin: 11/03/16 18:16 Dose: Not Given Piperacillin Sod/Tazobactam (Sod 2.25 gm/ Sodium Chloride) 100 mls @ 100 mls/ hr IVPB Q12@0900,2100 [facility] Last Admin: 11/04/16 10:36 Dose: 100 mls/hr Insulin Detemir (Levemir) 30 units SC HS [facility] Last Admin: 11/03/16 21:19 Dose: 30 units Insulin Human Lispro (Humalog) 8 units SC AC [facility] Last Admin: 11/04/16 08:59 Dose: 8 units Linezolid (Zyvox) 600 mg PO Q12 [facility] Last Admin: 11/04/16 08:53 Dose: 600 mg Nystatin (Nystop Topical Powder) 1 applic TOP BID [facility] Last Admin: 11/04/16 10:35 Dose: 1 applic Ondansetron HCl (Zofran Inj) 4 mg IVP Q6 PRN PRN Reason: Nausea/Vomiting Last Admin: 09/19/16 10:26 Dose: 4 mg Pantoprazole Sodium (Protonix Ec Tab) 40 mg PO DAILY [facility] Last Admin: 11/04/16 08:52 Dose: 40 mg Phenylephrine HCl (Dagoberto-Synephrine 0.5% Nasal [place]) 1 spry ALLAN Q4 PRN PRN Reason: Nasal congestion Sevelamer HCl (Renagel) 1,600 mg PO TID [facility] Last Admin: 11/04/16 08:52 Dose: 1,600 mg Topiramate (Topamax) 50 mg PO BID [facility] Last Admin: 11/04/16 08:54 Dose: 50 mg Vitamin B Complex/Vit C/Folic Acid (Nephro-Ajay) 1 tab PO DAILY [facility] Last Admin: 11/04/16 09:35 Dose: 1 tab - Labs Labs: 10/30/16 16:45 10/25/16 09:30 PT 17.6 Seconds (9.8-13.1) H 10/15/16 07:00 INR 1.5 (0.9-1.2) H 10/15/16 07:00 APTT 36.6 Seconds (25.6-37.1) 10/15/16 07:00
[2016-11-04] MEDS: Pantoprazole 40 mg EC Tab PO SCH (08:52)
[2016-11-04] MEDS: Santyl Collagenase OINTMENT TOP SCH (08:53)
[2016-11-04] MEDS: Lidocaine 5% Patch TD SCH (08:56)
[2016-11-04] MEDS: Insulin Lispro (humaLOG) 100 Units/ml Inj SC SCH ×3 (08:59→18:42)
[2016-11-04] MEDS: Multivitamin Vitamin B Complex (Nephro-Vite) Tab PO SCH (09:35)
--- NOTE | 2016-11-04 10:49 | CP.PCM.PN ---
Subjective - Date & Time of Evaluation Date of Evaluation: 11/04/16 Time of Evaluation: 10:47 - Subjective Subjective: Patient in bed She is awake consciousness Patient appeared to be in good mood and spirit Otherwise no changes in her clinical status Physical exam Chest no rales Heart no rubs Abdomen soft Extremity bilateral amputation below knee Impression and plan End stage renal disease patient to receive dialysis shortly as scheduled With sodium bath 138 And potassium bath 2 mEq And bicarbonate bath 34 And ultrafiltration 3000 mL as tolerated And patient receiving antibiotics as per primary team Objective - Vital Signs/Intake and Output Vital Signs (last 24 hours): Temp Pulse Resp BP Pulse Ox 98 F 105 H 20 126/56 L 99 11/04/16 08:40 11/04/16 08:40 11/04/16 08:40 11/04/16 08:40 11/04/16 08:40 - Medications Medications: Current Medications Acetaminophen (Tylenol 325mg Tab) 650 mg PO Q4 PRN PRN Reason: Fever >100.4 F Last Admin: 10/02/16 16:27 Dose: 650 mg Acetaminophen (Tylenol 325mg Tab) 650 mg PO Q4 PRN PRN Reason: Pain, moderate (4-7) Last Admin: 09/16/16 22:34 Dose: 650 mg Albuterol Sulfate (Albuterol 0.083% Inhal Barbie (2.5 Mg/3 Ml) Ud) 2.5 mg INH RQ4 PRN PRN Reason: Shortness of Breath Albuterol/Ipratropium (Duoneb 3 Mg/0.5 Mg (3 Ml) Ud) 3 ml INH RQ4 PRN PRN Reason: Shortness of Breath Apixaban (Eliquis) 5 mg PO BID JASPER PRN Reason: Protocol Last Admin: 11/04/16 08:53 Dose: 5 mg Aspirin (Ecotrin) 81 mg PO DAILY [facility] Last Admin: 11/04/16 08:54 Dose: 81 mg Atorvastatin Calcium (Lipitor) 40 mg PO DAILY [facility] Last Admin: 11/04/16 08:53 Dose: 40 mg Benzonatate (Tessalon Perles) 200 mg PO TID PRN PRN Reason: Cough Last Admin: 10/02/16 14:07 Dose: 200 mg Cinacalcet (Sensipar) 30 mg PO DAILY [facility] Last Admin: 11/04/16 08:53 Dose: 30 mg Collagenase (Santyl) 1 applic TOP DAILY [facility] Last Admin: 11/04/16 08:53 Dose: 1 applic Diphenhydramine HCl (Benadryl) 25 mg PO Q6 PRN PRN Reason: Itching / Pruritus Epoetin Tha (Procrit) 20,000 unit IV MWF [facility] Last Admin: 11/01/16 18:09 Dose: 20,000 unit Ergocalciferol (Drisdol 50,000 Intl Units Cap) 1 cap PO Q7D [facility] Stop: 11/06/16 11:16 Last Admin: 10/30/16 13:16 Dose: 1 cap Fluconazole (Diflucan) 100 mg PO DAILY [facility] Last Admin: 11/04/16 08:52 Dose: 100 mg Gabapentin (Neurontin) 300 mg PO TID [facility] Last Admin: 11/04/16 08:51 Dose: 300 mg Hydrocortisone (Anusol-Hc) 1 applic [place] BID PRN PRN Reason: Inflammation Hydromorphone HCl (Dilaudid) 1 mg IVP Q3H PRN PRN Reason: Pain, severe (8-10) Last Admin: 11/04/16 09:54 Dose: 1 mg Amikacin Sulfate 250 mg/ (Sodium Chloride) 101 mls @ 100.609 mls/hr IVPB [facility] Last Admin: 11/04/16 09:59 Dose: 100.609 mls/hr Meropenem 500 mg/ Sodium (Chloride) 100 mls @ 100 mls/hr IVPB DAILY@0100 [facility] Last Admin: 11/04/16 00:41 Dose: 100 mls/hr Sodium Chloride (Sodium Chloride 0.9%) 1,000 mls @ 10 mls/hr IV .Q24H [facility] Last Admin: 11/03/16 18:16 Dose: Not Given Piperacillin Sod/Tazobactam (Sod 2.25 gm/ Sodium Chloride) 100 mls @ 100 mls/ hr IVPB Q12@0900,2100 [facility] Last Admin: 11/03/16 21:20 Dose: 100 mls/hr Insulin Detemir (Levemir) 30 units SC HS [facility] Last Admin: 11/03/16 21:19 Dose: 30 units Insulin Human Lispro (Humalog) 8 units SC AC [facility] Last Admin: 11/04/16 08:59 Dose: 8 units Lidocaine (Lidoderm) 1 ea TD DAILY [facility] Last Admin: 11/04/16 08:56 Dose: 1 ea Linezolid (Zyvox) 600 mg PO Q12 [facility] Last Admin: 11/04/16 08:53 Dose: 600 mg Nystatin (Nystop Topical Powder) 1 applic TOP BID [facility] Last Admin: 11/03/16 17:16 Dose: 1 applic Ondansetron HCl (Zofran Inj) 4 mg IVP Q6 PRN PRN Reason: Nausea/Vomiting Last Admin: 09/19/16 10:26 Dose: 4 mg Pantoprazole Sodium (Protonix Ec Tab) 40 mg PO DAILY [facility] Last Admin: 11/04/16 08:52 Dose: 40 mg Phenylephrine HCl (Dagoberto-Synephrine 0.5% Nasal [place]) 1 spry ALLAN Q4 PRN PRN Reason: Nasal congestion Sevelamer HCl (Renagel) 1,600 mg PO TID [facility] Last Admin: 11/04/16 08:52 Dose: 1,600 mg Topiramate (Topamax) 50 mg PO BID [facility] Last Admin: 11/04/16 08:54 Dose: 50 mg Vitamin B Complex/Vit C/Folic Acid (Nephro-Ajay) 1 tab PO DAILY [facility] Last Admin: 11/03/16 08:22 Dose: 1 tab - Labs Labs: 10/30/16 16:45 10/25/16 09:30 PT 17.6 Seconds (9.8-13.1) H 10/15/16 07:00 INR 1.5 (0.9-1.2) H 10/15/16 07:00 APTT 36.6 Seconds (25.6-37.1) 10/15/16 07:00 Assessment and Plan (1) ESRD (end stage renal disease) Status: Chronic (2) Cellulitis of leg Status: Chronic
--- NOTE | 2016-11-04 14:16 | CP.PCM.PN ---
Subjective - Date & Time of Evaluation Date of Evaluation: 11/04/16 Time of Evaluation: 14:13 - Subjective Subjective: Patient is comfortable, eating lunch and awaiting hemodialysis. She had OT and PT this morning. Dr. Mccormack reports that wound is healing nicely but still needs Santyl for debridement. MRI of right knee/lower leg still not reported (done 11/01). I called radiology dept and requested a reading by tomorrow. Wound culture from 11/02 shows heavy growth of Klebsiella pn. - sens to gentamicin. This info. conveyed to Dr. Lemon. Notes by Drs. Maguire and Thierry appreciated. Pt continues on 3 iv and 2 po antibiotics. No fevers, cough, dyspnea, or chest pain. Objective - Vital Signs/Intake and Output Vital Signs (last 24 hours): Temp Pulse Resp BP Pulse Ox 98 F 105 H 20 126/56 L 99 11/04/16 08:40 11/04/16 08:40 11/04/16 08:40 11/04/16 08:40 11/04/16 08:40 - Medications Medications: Current Medications Acetaminophen (Tylenol 325mg Tab) 650 mg PO Q4 PRN PRN Reason: Fever >100.4 F Last Admin: 10/02/16 16:27 Dose: 650 mg Acetaminophen (Tylenol 325mg Tab) 650 mg PO Q4 PRN PRN Reason: Pain, moderate (4-7) Last Admin: 09/16/16 22:34 Dose: 650 mg Albuterol Sulfate (Albuterol 0.083% Inhal Barbie (2.5 Mg/3 Ml) Ud) 2.5 mg INH RQ4 PRN PRN Reason: Shortness of Breath Albuterol/Ipratropium (Duoneb 3 Mg/0.5 Mg (3 Ml) Ud) 3 ml INH RQ4 PRN PRN Reason: Shortness of Breath Apixaban (Eliquis) 5 mg PO BID JASPER PRN Reason: Protocol Last Admin: 11/04/16 08:53 Dose: 5 mg Aspirin (Ecotrin) 81 mg PO DAILY [facility] Last Admin: 11/04/16 08:54 Dose: 81 mg Atorvastatin Calcium (Lipitor) 40 mg PO DAILY [facility] Last Admin: 11/04/16 08:53 Dose: 40 mg Benzonatate (Tessalon Perles) 200 mg PO TID PRN PRN Reason: Cough Last Admin: 10/02/16 14:07 Dose: 200 mg Cinacalcet (Sensipar) 30 mg PO DAILY [facility] Last Admin: 11/04/16 08:53 Dose: 30 mg Collagenase (Santyl) 1 applic TOP DAILY [facility] Last Admin: 11/04/16 08:53 Dose: 1 applic Diphenhydramine HCl (Benadryl) 25 mg PO Q6 PRN PRN Reason: Itching / Pruritus Epoetin Tha (Procrit) 20,000 unit IV [facility] Last Admin: 11/01/16 18:09 Dose: 20,000 unit Ergocalciferol (Drisdol 50,000 Intl Units Cap) 1 cap PO Q7D [facility] Stop: 11/06/16 11:16 Last Admin: 10/30/16 13:16 Dose: 1 cap Fluconazole (Diflucan) 100 mg PO DAILY [facility] Last Admin: 11/04/16 08:52 Dose: 100 mg Gabapentin (Neurontin) 300 mg PO TID [facility] Last Admin: 11/04/16 13:37 Dose: 300 mg Hydrocortisone (Anusol-Hc) 1 applic [place] BID PRN PRN Reason: Inflammation Hydromorphone HCl (Dilaudid) 1 mg IVP Q3H PRN PRN Reason: Pain, severe (8-10) Last Admin: 11/04/16 09:54 Dose: 1 mg Amikacin Sulfate 250 mg/ (Sodium Chloride) 101 mls @ 100.609 mls/hr IVPB [facility] Last Admin: 11/04/16 09:59 Dose: 100.609 mls/hr Meropenem 500 mg/ Sodium (Chloride) 100 mls @ 100 mls/hr IVPB DAILY@0100 [facility] Last Admin: 11/04/16 00:41 Dose: 100 mls/hr Sodium Chloride (Sodium Chloride 0.9%) 1,000 mls @ 10 mls/hr IV .Q24H [facility] Last Admin: 11/03/16 18:16 Dose: Not Given Piperacillin Sod/Tazobactam (Sod 2.25 gm/ Sodium Chloride) 100 mls @ 100 mls/ hr IVPB Q12@0900,2100 [facility] Last Admin: 11/04/16 10:36 Dose: 100 mls/hr Insulin Detemir (Levemir) 30 units SC HS [facility] Last Admin: 11/03/16 21:19 Dose: 30 units Insulin Human Lispro (Humalog) 8 units SC AC [facility] Last Admin: 11/04/16 13:40 Dose: 8 units Linezolid (Zyvox) 600 mg PO Q12 [facility] Last Admin: 11/04/16 08:53 Dose: 600 mg Nystatin (Nystop Topical Powder) 1 applic TOP BID [facility] Last Admin: 11/04/16 10:35 Dose: 1 applic Ondansetron HCl (Zofran Inj) 4 mg IVP Q6 PRN PRN Reason: Nausea/Vomiting Last Admin: 09/19/16 10:26 Dose: 4 mg Pantoprazole Sodium (Protonix Ec Tab) 40 mg PO DAILY [facility] Last Admin: 11/04/16 08:52 Dose: 40 mg Phenylephrine HCl (Dagoberto-Synephrine 0.5% Nasal [place]) 1 spry ALLAN Q4 PRN PRN Reason: Nasal congestion Sevelamer HCl (Renagel) 1,600 mg PO TID [facility] Last Admin: 11/04/16 13:37 Dose: 1,600 mg Topiramate (Topamax) 50 mg PO BID [facility] Last Admin: 11/04/16 08:54 Dose: 50 mg Vitamin B Complex/Vit C/Folic Acid (Nephro-Ajay) 1 tab PO DAILY [facility] Last Admin: 11/04/16 09:35 Dose: 1 tab - Labs Labs: 10/30/16 16:45 10/25/16 09:30 PT 17.6 Seconds (9.8-13.1) H 10/15/16 07:00 INR 1.5 (0.9-1.2) H 10/15/16 07:00 APTT 36.6 Seconds (25.6-37.1) 10/15/16 07:00 - Constitutional Appears: No Acute Distress - Head Exam Head Exam: NORMAL INSPECTION - Eye Exam Eye Exam: Normal appearance - ENT Exam ENT Exam: Mucous Membranes Moist - Neck Exam Neck Exam: Full ROM, Normal Inspection - Respiratory Exam Respiratory Exam: Clear to Ausculation Bilateral, NORMAL BREATHING PATTERN - Cardiovascular Exam Cardiovascular Exam: REGULAR RHYTHM, +S1, +S2 - GI/Abdominal Exam GI & Abdominal Exam: Soft - Extremities Exam Additional comments: Dressing in place (just done) RLE. All other extrem. as before. L venous PICC line intact. - Back Exam Back Exam: NORMAL INSPECTION - Neurological Exam Neurological Exam: Alert, Awake, CN II-XII Intact, Oriented x3 - Psychiatric Exam Psychiatric exam: Normal Affect, Normal Mood - Skin Skin Exam: Dry, Normal Color, Warm Assessment and Plan (1) Status post below knee amputation of right lower extremity Assessment & Plan: Making progress in healing. Positive culture for Klebsiella is a concern, but may be contaminant? Follow-up by Dr. Lemon requested. As per Dr. Mccormack, patient is not ready for acute rehab as she may require further debridement. Status: Acute (2) ESRD (end stage renal disease) on dialysis Status: Chronic (3) DM type 2 (diabetes mellitus, type 2) Status: Chronic (4) Coagulopathy Status: Chronic (5) Peripheral arterial occlusive disease Status: Chronic - Assessment and Plan (Free Text) Assessment: In general, doing well. No longer appears "toxic" and rehab as possible is proceeding nicely. To continue all current meds, diet, and treatments for now. Blood work pending.
--- NOTE | 2016-11-04 14:39 | MRI ---
MRI right knee History: Soft tissue swelling. Evaluate for osteomyelitis. Comparison: None available. Technique: Multi-echo multiplanar sequences were performed through the right knee without the use of intravenous contrast. Findings: Reticulation and edema seen within the prepatellar soft tissues with a small amount of fluid within the prepatellar bursa. Patchy signal abnormality within the anterior patella demonstrating patchy decreased T1 signal and increased STIR signal, nonspecific. Osteomyelitis is considered in the appropriate clinical setting. Additional etiologies cannot be excluded. Small suprapatellar joint effusion. Heterogeneity of the visualized marrow with patchy decreased T1 signal suggestive for hematopoietic marrow reconversion in the distal femur. Thinning and attenuation with increased signal seen within the visualized anterior cruciate ligament suggestive for a moderate grade sprain with some interstitial delamination. Posterior cruciate ligament is preserved. Transverse linear oblique signal seen within the body and posterior horn of the medial meniscus extending to the articular surface suggestive for a possible small tear. Transverse linear oblique signal seen within the body and posterior horn of the lateral meniscus extending to the articular surface suggestive for a possible small tear. High-grade sprain and or partial tear of the proximal attachment of the medial collateral ligament. High-grade sprain and or partial tear of the proximal attachment of fibular collateral ligament. Insertional tendinopathy of the biceps femoris and popliteus tendons. Quadriceps tendon is preserved. Mild proximal patellar tendinopathy. Focal cartilage thinning overlying the medial patellar facet as well as the anterior to midportion of the medial compartment of the femorotibial joint space. Mild signal change in the adjacent marrow of the mid medial femoral condyle and mid medial proximal tibia suggestive for osteochondral change. Small to moderate suprapatellar joint effusion. Impression: 1. Reticulation and edema seen within the prepatellar soft tissues with a small amount of fluid within the prepatellar bursa. Patchy signal abnormality within the anterior patella demonstrating patchy decreased T1 signal and increased STIR signal, nonspecific. Osteomyelitis is considered in the appropriate clinical setting. Additional etiologies cannot be excluded. 2. Small suprapatellar joint effusion. 3. Heterogeneity of the visualized marrow with patchy decreased T1 signal suggestive for hematopoietic marrow reconversion in the distal femur. 4. Thinning and attenuation with increased signal seen within the visualized anterior cruciate ligament suggestive for a moderate grade sprain with some interstitial delamination. 5. Transverse linear oblique signal seen within the body and posterior horn of the medial meniscus extending to the articular surface suggestive for a possible small tear. 6. Transverse linear oblique signal seen within the body and posterior horn of the lateral meniscus extending to the articular surface suggestive for a possible small tear. 7. High-grade sprain and or partial tear of the proximal attachment of the medial collateral ligament. 8. High-grade sprain and or partial tear of the proximal attachment of fibular collateral ligament. 9. Insertional tendinopathy of the biceps femoris and popliteus tendons. 10. Mild proximal patellar tendinopathy. 11. Focal cartilage thinning overlying the medial patellar facet as well as the anterior to midportion of the medial compartment of the femorotibial joint space. 12. Mild signal change in the adjacent marrow of the mid medial femoral condyle and mid medial proximal tibia suggestive for osteochondral change. 13. Small to moderate suprapatellar joint effusion. These findings were preliminarily reported at 7:23 p.m. on 11/01/[address] Ashish Reynolds from [facility].
--- NOTE | 2016-11-04 16:49 | PN ---
DATE: 11/04/2016 ENDOCRINE FOLLOWUP NOTE ROOM: 663. This is a 46-year-old female with recent uncontrolled type 2 insulin-requiring diabetes, now being fo llowed closely for metabolic management. She has improved clinically and metabolically postoperative ly following a recent right below-knee amputation for severe right heel osteomyelitis and cellulitis with underlying severe peripheral arterial vasculopathy. Her glucose levels have been near optimal as noted, and the latest chemistry showed a BUN of 46, sodi um 144, potassium 4.9, chloride 104, CO2 23, glucose 100, and creatinine 6.5. So, at this time, we will continue the same basal and bolus insulin regimen to allow for dose equilib ration with Levemir given as 30 units subcutaneous at bedtime daily and Humalog given as 8 units subc utaneous t.i.d. before meals as ordered. Will obtain serial chemistries and supplement accordingly a s needed. Will follow. Irene Ambrose MD cc: [id number] TT: 11/04/2016 16:49:22 Confirmation # [id number] Dictation # [id number] amalia
[2016-11-04] MEDS: Epoetin Alfa 20000 UNIT/ML Inj IV SCH (17:43)
[2016-11-04] MEDS: Sodium Chloride 0.9% 1,000 ML IV SCH (17:44)
[2016-11-04 17:50] LABS: ALB/GLOB RATIO 0.8 (1.0-2.1); BILIRUBIN,TOTAL 0.5 mg/dl (0.2-1.3); CALCIUM 9.1 mg/dL (8.4-10.2); POTASSIUM 4.6 MMOL/L (3.6-5.0)
--- NOTE | 2016-11-04 17:59 | CP.PCM.PN ---
Subjective - Date & Time of Evaluation Date of Evaluation: 11/04/16 Time of Evaluation: 17:45 - Subjective Subjective: I D NOTE HAS MDR KLEBSIELLA WILL CHECK C MICRO FOR IF ANY OTHER SENSITIVITIES Objective - Vital Signs/Intake and Output Vital Signs (last 24 hours): Temp Pulse Resp BP Pulse Ox 98.7 F 106 H 20 146/34 L 97 11/04/16 16:21 11/04/16 16:21 11/04/16 16:21 11/04/16 16:21 11/04/16 16:21 - Medications Medications: Current Medications Acetaminophen (Tylenol 325mg Tab) 650 mg PO Q4 PRN PRN Reason: Fever >100.4 F Last Admin: 10/02/16 16:27 Dose: 650 mg Acetaminophen (Tylenol 325mg Tab) 650 mg PO Q4 PRN PRN Reason: Pain, moderate (4-7) Last Admin: 09/16/16 22:34 Dose: 650 mg Albuterol Sulfate (Albuterol 0.083% Inhal Barbie (2.5 Mg/3 Ml) Ud) 2.5 mg INH RQ4 PRN PRN Reason: Shortness of Breath Albuterol/Ipratropium (Duoneb 3 Mg/0.5 Mg (3 Ml) Ud) 3 ml INH RQ4 PRN PRN Reason: Shortness of Breath Apixaban (Eliquis) 5 mg PO BID [facility] PRN Reason: Protocol Last Admin: 11/04/16 08:53 Dose: 5 mg Aspirin (Ecotrin) 81 mg PO DAILY [facility] Last Admin: 11/04/16 08:54 Dose: 81 mg Atorvastatin Calcium (Lipitor) 40 mg PO DAILY [facility] Last Admin: 11/04/16 08:53 Dose: 40 mg Benzonatate (Tessalon Perles) 200 mg PO TID PRN PRN Reason: Cough Last Admin: 10/02/16 14:07 Dose: 200 mg Cinacalcet (Sensipar) 30 mg PO DAILY [facility] Last Admin: 11/04/16 08:53 Dose: 30 mg Collagenase (Santyl) 1 applic TOP DAILY [facility] Last Admin: 11/04/16 08:53 Dose: 1 applic Diphenhydramine HCl (Benadryl) 25 mg PO Q6 PRN PRN Reason: Itching / Pruritus Epoetin Tha (Procrit) 20,000 unit IV MWF [facility] Last Admin: 11/04/16 17:43 Dose: Not Given Ergocalciferol (Drisdol 50,000 Intl Units Cap) 1 cap PO Q7D [facility] Stop: 11/06/16 11:16 Last Admin: 10/30/16 13:16 Dose: 1 cap Fluconazole (Diflucan) 100 mg PO DAILY [facility] Last Admin: 11/04/16 08:52 Dose: 100 mg Gabapentin (Neurontin) 300 mg PO TID [facility] Last Admin: 11/04/16 13:37 Dose: 300 mg Hydrocortisone (Anusol-Hc) 1 applic [place] BID PRN PRN Reason: Inflammation Hydromorphone HCl (Dilaudid) 1 mg IVP Q3H PRN PRN Reason: Pain, severe (8-10) Last Admin: 11/04/16 17:10 Dose: 1 mg Amikacin Sulfate 250 mg/ (Sodium Chloride) 101 mls @ 100.609 mls[facility] Last Admin: 11/04/16 09:59 Dose: 100.609 mls/hr Meropenem 500 mg/ Sodium (Chloride) 100 mls @ 100 mls/hr IVPB DAILY@0100 [facility] Last Admin: 11/04/16 00:41 Dose: 100 mls/hr Sodium Chloride (Sodium Chloride 0.9%) 1,000 mls @ 10 mls/hr IV .Q24H [facility] Last Admin: 11/04/16 17:44 Dose: Not Given Piperacillin Sod/Tazobactam (Sod 2.25 gm/ Sodium Chloride) 100 mls @ 100 mls/ hr IVPB Q12@0900,2100 [facility] Last Admin: 11/04/16 10:36 Dose: 100 mls/hr Insulin Detemir (Levemir) 30 units SC HS [facility] Last Admin: 11/03/16 21:19 Dose: 30 units Insulin Human Lispro (Humalog) 8 units SC AC [facility] Last Admin: 11/04/16 13:40 Dose: 8 units Linezolid (Zyvox) 600 mg PO Q12 [facility] Last Admin: 11/04/16 08:53 Dose: 600 mg Nystatin (Nystop Topical Powder) 1 applic TOP BID [facility] Last Admin: 11/04/16 10:35 Dose: 1 applic Ondansetron HCl (Zofran Inj) 4 mg IVP Q6 PRN PRN Reason: Nausea/Vomiting Last Admin: 09/19/16 10:26 Dose: 4 mg Pantoprazole Sodium (Protonix Ec Tab) 40 mg PO DAILY [facility] Last Admin: 11/04/16 08:52 Dose: 40 mg Phenylephrine HCl (Dagoberto-Synephrine 0.5% Nasal [place]) 1 spry ALLAN Q4 PRN PRN Reason: Nasal congestion Sevelamer HCl (Renagel) 1,600 mg PO TID [facility] Last Admin: 11/04/16 13:37 Dose: 1,600 mg Topiramate (Topamax) 50 mg PO BID [facility] Last Admin: 11/04/16 08:54 Dose: 50 mg Vitamin B Complex/Vit C/Folic Acid (Nephro-Ajay) 1 tab PO DAILY [facility] Last Admin: 11/04/16 09:35 Dose: 1 tab - Labs Labs: 10/30/16 16:45 10/25/16 09:30 PT 17.6 Seconds (9.8-13.1) H 10/15/16 07:00 INR 1.5 (0.9-1.2) H 10/15/16 07:00 APTT 36.6 Seconds (25.6-37.1) 10/15/16 07:00
[2016-11-04] MEDS: Insulin Detemir 100 Units/ml Inj SC SCH (21:26)
--- NOTE | 2016-11-04 23:51 | CP.PCM.PN ---
Subjective - Date & Time of Evaluation Date of Evaluation: 11/04/16 Time of Evaluation: 21:00 - Subjective Subjective: Patient wound cultures are positive for Klebsiella Pneumonia with a sensitivity to Gentamycin and Tigecycline. She is clinically stable, but her infection is a major concern. She is receiving Hemodialysis on M,W,F and is responding to the Dialysis. Her DM is miranda the care of Pharmacist Critical Care Dr Ambrose. She has no seizures and she is receiving Po Topamax. Vital Signs are showing Systolic fluctuations ups and down, low diastolic on and off. She is interactive. Objective - Vital Signs/Intake and Output Vital Signs (last 24 hours): Temp Pulse Resp BP Pulse Ox 98.7 F 106 H 20 146/34 L 97 11/04/16 16:21 11/04/16 16:21 11/04/16 16:21 11/04/16 16:21 11/04/16 16:21 - Medications Medications: Current Medications Acetaminophen (Tylenol 325mg Tab) 650 mg PO Q4 PRN PRN Reason: Fever >100.4 F Last Admin: 10/02/16 16:27 Dose: 650 mg Acetaminophen (Tylenol 325mg Tab) 650 mg PO Q4 PRN PRN Reason: Pain, moderate (4-7) Last Admin: 09/16/16 22:34 Dose: 650 mg Albuterol Sulfate (Albuterol 0.083% Inhal Barbie (2.5 Mg/3 Ml) Ud) 2.5 mg INH RQ4 PRN PRN Reason: Shortness of Breath Albuterol/Ipratropium (Duoneb 3 Mg/0.5 Mg (3 Ml) Ud) 3 ml INH RQ4 PRN PRN Reason: Shortness of Breath Apixaban (Eliquis) 5 mg PO BID [facility] PRN Reason: Protocol Last Admin: 11/04/16 18:42 Dose: 5 mg Aspirin (Ecotrin) 81 mg PO DAILY [facility] Last Admin: 11/04/16 08:54 Dose: 81 mg Atorvastatin Calcium (Lipitor) 40 mg PO DAILY [facility] Last Admin: 11/04/16 08:53 Dose: 40 mg Benzonatate (Tessalon Perles) 200 mg PO TID PRN PRN Reason: Cough Last Admin: 10/02/16 14:07 Dose: 200 mg Cinacalcet (Sensipar) 30 mg PO DAILY [facility] Last Admin: 11/04/16 08:53 Dose: 30 mg Collagenase (Santyl) 1 applic TOP DAILY [facility] Last Admin: 11/04/16 08:53 Dose: 1 applic Diphenhydramine HCl (Benadryl) 25 mg PO Q6 PRN PRN Reason: Itching / Pruritus Epoetin Tha (Procrit) 20,000 unit IV MWF [facility] Last Admin: 11/04/16 17:43 Dose: Not Given Ergocalciferol (Drisdol 50,000 Intl Units Cap) 1 cap PO Q7D [facility] Stop: 11/06/16 11:16 Last Admin: 10/30/16 13:16 Dose: 1 cap Fluconazole (Diflucan) 100 mg PO DAILY [facility] Last Admin: 11/04/16 08:52 Dose: 100 mg Gabapentin (Neurontin) 300 mg PO TID [facility] Last Admin: 11/04/16 18:43 Dose: 300 mg Hydrocortisone (Anusol-Hc) 1 applic [place] BID PRN PRN Reason: Inflammation Hydromorphone HCl (Dilaudid) 1 mg IVP Q3H PRN PRN Reason: Pain, severe (8-10) Last Admin: 11/04/16 21:20 Dose: 1 mg Amikacin Sulfate 250 mg/ (Sodium Chloride) 101 mls @ 100.609 mls/hr [place] [facility] [place] Last Admin: 11/04/16 09:59 Dose: 100.609 mls/hr Meropenem 500 mg/ Sodium (Chloride) 100 mls @ 100 mls/hr IVPB DAILY@0100 [facility] Last Admin: 11/04/16 00:41 Dose: 100 mls/hr Sodium Chloride (Sodium Chloride 0.9%) 1,000 mls @ 10 mls/hr IV .Q24H [facility] Last Admin: 11/04/16 17:44 Dose: Not Given Piperacillin Sod/Tazobactam (Sod 2.25 gm/ Sodium Chloride) 100 mls @ 100 mls/ hr IVPB Q12@0900,2100 [facility] Last Admin: 11/04/16 21:10 Dose: 100 mls/hr Insulin Detemir (Levemir) 30 units SC HS [facility] Last Admin: 11/04/16 21:26 Dose: 30 units Insulin Human Lispro (Humalog) 8 units SC AC [facility] Last Admin: 11/04/16 18:42 Dose: 8 units Linezolid (Zyvox) 600 mg PO Q12 [facility] Last Admin: 11/04/16 21:11 Dose: 600 mg Nystatin (Nystop Topical Powder) 1 applic TOP BID [facility] Last Admin: 11/04/16 18:43 Dose: 1 applic Ondansetron HCl (Zofran Inj) 4 mg IVP Q6 PRN PRN Reason: Nausea/Vomiting Last Admin: 09/19/16 10:26 Dose: 4 mg Pantoprazole Sodium (Protonix Ec Tab) 40 mg PO DAILY [facility] Last Admin: 11/04/16 08:52 Dose: 40 mg Phenylephrine HCl (Dagoberto-Synephrine 0.5% Nasal [place]) 1 spry ALLAN Q4 PRN PRN Reason: Nasal congestion Sevelamer HCl (Renagel) 1,600 mg PO TID [facility] Last Admin: 11/04/16 18:42 Dose: 1,600 mg Topiramate (Topamax) 50 mg PO BID [facility] Last Admin: 11/04/16 18:42 Dose: 50 mg Vitamin B Complex/Vit C/Folic Acid (Nephro-Ajay) 1 tab PO DAILY [facility] Last Admin: 11/04/16 09:35 Dose: 1 tab - Labs Labs: 10/30/16 16:45 11/04/16 17:26 PT 17.6 Seconds (9.8-13.1) H 10/15/16 07:00 INR 1.5 (0.9-1.2) H 10/15/16 07:00 APTT 36.6 Seconds (25.6-37.1) 10/15/16 07:00 Assessment and Plan (1) Diabetes Status: Chronic (2) ESRD (end stage renal disease) Status: Chronic (3) Cellulitis of leg Status: Chronic (4) Hyperlipidemia Status: Chronic (5) Back pain Status: Acute (6) Bacteremia due to Gram-negative bacteria Status: Acute (7) Diabetes mellitus type 2 with peripheral artery disease Status: Acute (8) PVD (peripheral vascular disease) Status: Acute (9) Osteomyelitis of right foot Status: Acute (10) Fungal infection right foot Status: Acute
[2016-11-05] MEDS: Meropenem 500 MG in Sodium Chloride 0.9% 100 ML IVPB SCH (00:04)
--- NOTE | 2016-11-05 08:02 | CP.PCM.PN ---
Subjective - Date & Time of Evaluation Date of Evaluation: 11/05/16 Time of Evaluation: 06:50 - Subjective Subjective: SURGERY NOTE FOR DR. MCCORMACK 46 yo Female patient 5 weeks s/p Right BKA was seen and examined at bedside. Dressing to right lower extremity remains CDI. Patient denies of N/V/F/C or SOB Objective - Vital Signs/Intake and Output Vital Signs (last 24 hours): Temp Pulse Resp BP Pulse Ox 98.2 F 75 20 92/60 L 98 11/05/16 00:27 11/05/16 00:27 11/05/16 00:27 11/05/16 00:27 11/05/16 00:27 - Medications Medications: Current Medications Acetaminophen (Tylenol 325mg Tab) 650 mg PO Q4 PRN PRN Reason: Fever >100.4 F Last Admin: 10/02/16 16:27 Dose: 650 mg Acetaminophen (Tylenol 325mg Tab) 650 mg PO Q4 PRN PRN Reason: Pain, moderate (4-7) Last Admin: 09/16/16 22:34 Dose: 650 mg Albuterol Sulfate (Albuterol 0.083% Inhal Barbie (2.5 Mg/3 Ml) Ud) 2.5 mg INH RQ4 PRN PRN Reason: Shortness of Breath Albuterol/Ipratropium (Duoneb 3 Mg/0.5 Mg (3 Ml) Ud) 3 ml INH RQ4 PRN PRN Reason: Shortness of Breath Apixaban (Eliquis) 5 mg PO BID [facility] PRN Reason: Protocol Last Admin: 11/04/16 18:42 Dose: 5 mg Aspirin (Ecotrin) 81 mg PO DAILY [facility] Last Admin: 11/04/16 08:54 Dose: 81 mg Atorvastatin Calcium (Lipitor) 40 mg PO DAILY [facility] Last Admin: 11/04/16 08:53 Dose: 40 mg Benzonatate (Tessalon Perles) 200 mg PO TID PRN PRN Reason: Cough Last Admin: 10/02/16 14:07 Dose: 200 mg Cinacalcet (Sensipar) 30 mg PO DAILY [facility] Last Admin: 11/04/16 08:53 Dose: 30 mg Collagenase (Santyl) 1 applic TOP DAILY [facility] Last Admin: 11/04/16 08:53 Dose: 1 applic Diphenhydramine HCl (Benadryl) 25 mg PO Q6 PRN PRN Reason: Itching / Pruritus Epoetin Tha (Procrit) 20,000 unit IV [facility] [place] Last Admin: 11/04/16 17:43 Dose: Not Given Ergocalciferol (Drisdol 50,000 Intl Units Cap) 1 cap PO Q7D [facility] Stop: 11/06/16 11:16 Last Admin: 10/30/16 13:16 Dose: 1 cap Fluconazole (Diflucan) 100 mg PO DAILY [facility] Last Admin: 11/04/16 08:52 Dose: 100 mg Gabapentin (Neurontin) 300 mg PO TID [facility] Last Admin: 11/04/16 18:43 Dose: 300 mg Hydrocortisone (Anusol-Hc) 1 applic [place] BID PRN PRN Reason: Inflammation Hydromorphone HCl (Dilaudid) 1 mg IVP Q3H PRN PRN Reason: Pain, severe (8-10) Last Admin: 11/05/16 05:54 Dose: 1 mg Amikacin Sulfate 250 mg/ (Sodium Chloride) 101 mls @ 100.609 mls/hr IVPB [facility] [place] Last Admin: 11/04/16 09:59 Dose: 100.609 mls/hr Meropenem 500 mg/ Sodium (Chloride) 100 mls @ 100 mls/hr IVPB DAILY@0100 [facility] Last Admin: 11/05/16 00:04 Dose: 100 mls/hr Sodium Chloride (Sodium Chloride 0.9%) 1,000 mls @ 10 mls/hr IV .Q24H [facility] Last Admin: 11/04/16 17:44 Dose: Not Given Piperacillin Sod/Tazobactam (Sod 2.25 gm/ Sodium Chloride) 100 mls @ 100 mls/ hr IVPB Q12@0900,2100 [facility] Last Admin: 11/04/16 21:10 Dose: 100 mls/hr Insulin Detemir (Levemir) 30 units SC HS [facility] Last Admin: 11/04/16 21:26 Dose: 30 units Insulin Human Lispro (Humalog) 8 units SC AC [facility] Last Admin: 11/04/16 18:42 Dose: 8 units Linezolid (Zyvox) 600 mg PO Q12 [facility] Last Admin: 11/04/16 21:11 Dose: 600 mg Nystatin (Nystop Topical Powder) 1 applic TOP BID [facility] Last Admin: 11/04/16 18:43 Dose: 1 applic Ondansetron HCl (Zofran Inj) 4 mg IVP Q6 PRN PRN Reason: Nausea/Vomiting Last Admin: 09/19/16 10:26 Dose: 4 mg Pantoprazole Sodium (Protonix Ec Tab) 40 mg PO DAILY [facility] Last Admin: 11/04/16 08:52 Dose: 40 mg Phenylephrine HCl (Dagoberto-Synephrine 0.5% Nasal [place]) 1 spry ALLAN Q4 PRN PRN Reason: Nasal congestion Sevelamer HCl (Renagel) 1,600 mg PO TID [facility] Last Admin: 11/04/16 18:42 Dose: 1,600 mg Topiramate (Topamax) 50 mg PO BID [facility] Last Admin: 11/04/16 18:42 Dose: 50 mg Vitamin B Complex/Vit C/Folic Acid (Nephro-Ajay) 1 tab PO DAILY [facility] Last Admin: 11/04/16 09:35 Dose: 1 tab - Labs Labs: 10/30/16 16:45 11/04/16 17:26 PT 17.6 Seconds (9.8-13.1) H 10/15/16 07:00 INR 1.5 (0.9-1.2) H 10/15/16 07:00 APTT 36.6 Seconds (25.6-37.1) 10/15/16 07:00 - Constitutional Appears: Well, Non-toxic, No Acute Distress - Extremities Exam Additional comments: right BKA -no strikethrough of dressing - Neurological Exam Neurological Exam: Alert, Awake, Oriented x3 - Psychiatric Exam Psychiatric exam: Normal Affect, Normal Mood - Skin Skin Exam: Normal Color, Warm Assessment and Plan - Assessment and Plan (Free Text) Assessment: 46 F 4 weeks s/p Right BKA presenting with wound dehiscence Plan: Continue local wound care using enzymatic debridement with Santyl. Continue supportive medical care. MRI reports (-) of abscess formation Further recs discuss with Dr. Mccormack
[2016-11-05] MEDS: Pantoprazole 40 mg EC Tab PO SCH (08:43)
[2016-11-05] MEDS: Multivitamin Vitamin B Complex (Nephro-Vite) Tab PO SCH (08:43)
[2016-11-05] MEDS: Santyl Collagenase OINTMENT TOP SCH (08:44)
[2016-11-05] MEDS: Insulin Lispro (humaLOG) 100 Units/ml Inj SC SCH ×3 (08:46→16:02)
--- NOTE | 2016-11-05 11:23 | CP.PCM.PN ---
Subjective - Date & Time of Evaluation Date of Evaluation: 11/05/16 Time of Evaluation: 11:18 - Subjective Subjective: Consultants' notes appreciated. Patient is comfortable, awaiting plans for increase physical therapy today - including an attempt to stand on L BK prosthesis and pivot into wc. As noted by Dr. Lemon, the right BK wound culture of 11/02 is growing multi- drug resistant Klebsiella. He is following up with lab on sensitivities. MRI reviewed. Conclusions are few - there are "osteochondral changes" and "consideration of osteomyelitis" and descriptions of internal disruption of the right knee, but there is no mention of abscess. Labs reviewed: Unfortunately CBC was not done??? Glucose was 90. Mild elevation of alkaline phosphatase is something to be watched - bone vs liver??? Otherwise no fevers, cough, dyspnea, or pain. Appetite and elimination OK. Objective - Vital Signs/Intake and Output Vital Signs (last 24 hours): Temp Pulse Resp BP Pulse Ox 98.3 F 114 H 20 130/73 99 11/05/16 08:30 11/05/16 08:30 11/05/16 08:30 11/05/16 08:30 11/05/16 08:30 - Medications Medications: Current Medications Acetaminophen (Tylenol 325mg Tab) 650 mg PO Q4 PRN PRN Reason: Fever >100.4 F Last Admin: 10/02/16 16:27 Dose: 650 mg Acetaminophen (Tylenol 325mg Tab) 650 mg PO Q4 PRN PRN Reason: Pain, moderate (4-7) Last Admin: 09/16/16 22:34 Dose: 650 mg Albuterol Sulfate (Albuterol 0.083% Inhal Barbie (2.5 Mg/3 Ml) Ud) 2.5 mg INH RQ4 PRN PRN Reason: Shortness of Breath Albuterol/Ipratropium (Duoneb 3 Mg/0.5 Mg (3 Ml) Ud) 3 ml INH RQ4 PRN PRN Reason: Shortness of Breath Apixaban (Eliquis) 5 mg PO BID [facility] PRN Reason: Protocol Last Admin: 11/05/16 08:42 Dose: 5 mg Aspirin (Ecotrin) 81 mg PO DAILY [facility] Last Admin: 11/05/16 08:45 Dose: 81 mg Atorvastatin Calcium (Lipitor) 40 mg PO DAILY [facility] Last Admin: 11/05/16 08:47 Dose: 40 mg Benzonatate (Tessalon Perles) 200 mg PO TID PRN PRN Reason: Cough Last Admin: 10/02/16 14:07 Dose: 200 mg Cinacalcet (Sensipar) 30 mg PO DAILY [facility] Last Admin: 11/05/16 08:48 Dose: 30 mg Collagenase (Santyl) 1 applic TOP DAILY [facility] Last Admin: 11/05/16 08:44 Dose: 1 applic Diphenhydramine HCl (Benadryl) 25 mg PO Q6 PRN PRN Reason: Itching / Pruritus Epoetin Tha (Procrit) 20,000 unit IV [facility] [place] Last Admin: 11/04/16 17:43 Dose: Not Given Ergocalciferol (Drisdol 50,000 Intl Units Cap) 1 cap PO Q7D [facility] Stop: 11/06/16 11:16 Last Admin: 10/30/16 13:16 Dose: 1 cap Fluconazole (Diflucan) 100 mg PO DAILY [facility] Last Admin: 11/05/16 08:45 Dose: 100 mg Gabapentin (Neurontin) 300 mg PO TID [facility] Last Admin: 11/05/16 08:47 Dose: 300 mg Hydrocortisone (Anusol-Hc) 1 applic [place] BID PRN PRN Reason: Inflammation Hydromorphone HCl (Dilaudid) 1 mg IVP Q3H PRN PRN Reason: Pain, severe (8-10) Last Admin: 11/05/16 10:21 Dose: 1 mg Amikacin Sulfate 250 mg/ (Sodium Chloride) 101 mls @ 100.609 mls/hr IVPB [facility] [place] Last Admin: 11/04/16 09:59 Dose: 100.609 mls/hr Meropenem 500 mg/ Sodium (Chloride) 100 mls @ 100 mls/hr IVPB DAILY@0100 [facility] Last Admin: 11/05/16 00:04 Dose: 100 mls/hr Sodium Chloride (Sodium Chloride 0.9%) 1,000 mls @ 10 mls/hr IV .Q24H [facility] Last Admin: 11/04/16 17:44 Dose: Not Given Piperacillin Sod/Tazobactam (Sod 2.25 gm/ Sodium Chloride) 100 mls @ 100 mls/ hr IVPB Q12@0900,2100 [facility] Last Admin: 11/05/16 08:44 Dose: 100 mls/hr Insulin Detemir (Levemir) 30 units SC HS [facility] Last Admin: 11/04/16 21:26 Dose: 30 units Insulin Human Lispro (Humalog) 8 units SC AC [facility] Last Admin: 11/05/16 08:46 Dose: 8 units Linezolid (Zyvox) 600 mg PO Q12 [facility] Last Admin: 11/05/16 08:44 Dose: 600 mg Nystatin (Nystop Topical Powder) 1 applic TOP BID [facility] Last Admin: 11/05/16 08:47 Dose: 1 applic Ondansetron HCl (Zofran Inj) 4 mg IVP Q6 PRN PRN Reason: Nausea/Vomiting Last Admin: 09/19/16 10:26 Dose: 4 mg Pantoprazole Sodium (Protonix Ec Tab) 40 mg PO DAILY [facility] Last Admin: 11/05/16 08:43 Dose: 40 mg Phenylephrine HCl (Dagoberto-Synephrine 0.5% Nasal [place]) 1 spry ALLAN Q4 PRN PRN Reason: Nasal congestion Sevelamer HCl (Renagel) 1,600 mg PO TID [facility] Last Admin: 11/05/16 08:43 Dose: 1,600 mg Topiramate (Topamax) 50 mg PO BID [facility] Last Admin: 11/05/16 08:45 Dose: 50 mg Vitamin B Complex/Vit C/Folic Acid (Nephro-Ajay) 1 tab PO DAILY [facility] Last Admin: 11/05/16 08:43 Dose: 1 tab - Labs Labs: 10/30/16 16:45 11/04/16 17:26 PT 17.6 Seconds (9.8-13.1) H 10/15/16 07:00 INR 1.5 (0.9-1.2) H 10/15/16 07:00 APTT 36.6 Seconds (25.6-37.1) 10/15/16 07:00 Microbiology 11/02/16 Leg - Right Wound Culture - Final Klebsiella Pneumoniae Ssp Pneu - Constitutional Appears: No Acute Distress - Head Exam Head Exam: NORMAL INSPECTION - Eye Exam Eye Exam: Normal appearance - ENT Exam ENT Exam: Mucous Membranes Moist - Neck Exam Neck Exam: Normal Inspection Additional comments: R subclavian Permacath intact. - Respiratory Exam Respiratory Exam: Clear to Ausculation Bilateral, NORMAL BREATHING PATTERN - Cardiovascular Exam Cardiovascular Exam: REGULAR RHYTHM, +S1, +S2 - GI/Abdominal Exam GI & Abdominal Exam: Soft - Extremities Exam Additional comments: Right BK wound dressed and knee immobilizer in place. L femoral vein PICC line intact. Other extremities - no changes. - Back Exam Back Exam: NORMAL INSPECTION - Neurological Exam Neurological Exam: Alert, Awake, CN II-XII Intact, Oriented x3 - Psychiatric Exam Psychiatric exam: Normal Affect, Normal Mood - Skin Skin Exam: Dry, Normal Color, Warm Additional comments: Lesions beneath breasts have resolved completely. Buttock healing. Assessment and Plan (1) Status post below knee amputation of right lower extremity Assessment & Plan: Positive wound culture is worrisome. MRI reading is difficult to correlate with clinical findings, but will await review by Dr. Mccormack. Await any antibiotic changes per Dr. Lemon. To proceed with wound care and possibly adjust antibiotics. Patient is clinically improving. To procees with physical therapy. Status: Acute (2) ESRD (end stage renal disease) on dialysis Status: Chronic (3) DM type 2 (diabetes mellitus, type 2) Status: Chronic (4) Coagulopathy Status: Chronic (5) Peripheral arterial occlusive disease Status: Chronic
[2016-11-05] MEDS: Lidocaine 5% Patch TD SCH (14:11)
[2016-11-05] MEDS: Sodium Chloride 0.9% 1,000 ML IV SCH (16:32)
[2016-11-05] MEDS: Insulin Detemir 100 Units/ml Inj SC SCH (21:01)
--- NOTE | 2016-11-05 23:41 | CP.PCM.PN ---
Subjective - Date & Time of Evaluation Date of Evaluation: 11/05/16 Time of Evaluation: 20:55 - Subjective Subjective: Doing better, able to interact, trying to stand on her left BKA with help and Prosthesis. Blood sugar is well adjusted. She is receiving Vitamin D and will get a new Vitamin D measurement for better assessment. Hemodialysis is planned on , , . She is not having seizures and is receiving Po Topamax 50 mg BID. She is receiving Antibiotics for her Bone infection. Objective - Vital Signs/Intake and Output Vital Signs (last 24 hours): Temp Pulse Resp BP Pulse Ox 98.5 F 118 H 20 138/96 H 100 11/05/16 16:42 11/05/16 16:42 11/05/16 16:42 11/05/16 16:42 11/05/16 16:42 - Medications Medications: Current Medications Acetaminophen (Tylenol 325mg Tab) 650 mg PO Q4 PRN PRN Reason: Fever >100.4 F Last Admin: 10/02/16 16:27 Dose: 650 mg Acetaminophen (Tylenol 325mg Tab) 650 mg PO Q4 PRN PRN Reason: Pain, moderate (4-7) Last Admin: 09/16/16 22:34 Dose: 650 mg Albuterol Sulfate (Albuterol 0.083% Inhal Barbie (2.5 Mg/3 Ml) Ud) 2.5 mg INH RQ4 PRN PRN Reason: Shortness of Breath Albuterol/Ipratropium (Duoneb 3 Mg/0.5 Mg (3 Ml) Ud) 3 ml INH RQ4 PRN PRN Reason: Shortness of Breath Apixaban (Eliquis) 5 mg PO BID [facility] PRN Reason: Protocol Last Admin: 11/05/16 16:05 Dose: 5 mg Aspirin (Ecotrin) 81 mg PO DAILY [facility] Last Admin: 11/05/16 08:45 Dose: 81 mg Atorvastatin Calcium (Lipitor) 40 mg PO DAILY [facility] Last Admin: 11/05/16 08:47 Dose: 40 mg Benzonatate (Tessalon Perles) 200 mg PO TID PRN PRN Reason: Cough Last Admin: 10/02/16 14:07 Dose: 200 mg Cinacalcet (Sensipar) 30 mg PO DAILY [facility] Last Admin: 11/05/16 08:48 Dose: 30 mg Collagenase (Santyl) 1 applic TOP DAILY [facility] Last Admin: 11/05/16 08:44 Dose: 1 applic Diphenhydramine HCl (Benadryl) 25 mg PO Q6 PRN PRN Reason: Itching / Pruritus Epoetin Tha (Procrit) 20,000 unit IV MWF [facility] Last Admin: 11/04/16 17:43 Dose: Not Given Ergocalciferol (Drisdol 50,000 Intl Units Cap) 1 cap PO Q7D [facility] Stop: 11/06/16 11:16 Last Admin: 10/30/16 13:16 Dose: 1 cap Fluconazole (Diflucan) 100 mg PO DAILY [facility] Last Admin: 11/05/16 08:45 Dose: 100 mg Gabapentin (Neurontin) 300 mg PO TID [facility] Last Admin: 11/05/16 16:03 Dose: 300 mg Hydrocortisone (Anusol-Hc) 1 applic [place] BID PRN PRN Reason: Inflammation Hydromorphone HCl (Dilaudid) 1 mg IVP Q3H PRN PRN Reason: Pain, severe (8-10) Last Admin: 11/05/16 20:54 Dose: 1 mg Amikacin Sulfate 250 mg/ (Sodium Chloride) 101 mls @ 100.609 mls/hr IVPB [facility] [place] Last Admin: 11/04/16 09:59 Dose: 100.609 mls/hr Meropenem 500 mg/ Sodium (Chloride) 100 mls @ 100 mls/hr IVPB DAILY@0100 [facility] Last Admin: 11/05/16 00:04 Dose: 100 mls/hr Sodium Chloride (Sodium Chloride 0.9%) 1,000 mls @ 10 mls/hr IV .Q24H [facility] Last Admin: 11/05/16 16:32 Dose: 10 mls/hr Piperacillin Sod/Tazobactam (Sod 2.25 gm/ Sodium Chloride) 100 mls @ 100 mls/ hr IVPB Q12@0900,2100 [facility] Last Admin: 11/05/16 20:56 Dose: 100 mls/hr Insulin Detemir (Levemir) 30 units SC HS [facility] Last Admin: 11/05/16 21:01 Dose: 30 units Insulin Human Lispro (Humalog) 8 units SC AC [facility] Last Admin: 11/05/16 16:02 Dose: 8 units Lidocaine (Lidoderm) 1 ea TD DAILY [facility] Last Admin: 11/05/16 14:11 Dose: 1 ea Linezolid (Zyvox) 600 mg PO Q12 [facility] Last Admin: 11/05/16 20:56 Dose: 600 mg Nystatin (Nystop Topical Powder) 1 applic TOP BID [facility] Last Admin: 11/05/16 16:07 Dose: 1 applic Ondansetron HCl (Zofran Inj) 4 mg IVP Q6 PRN PRN Reason: Nausea/Vomiting Last Admin: 09/19/16 10:26 Dose: 4 mg Pantoprazole Sodium (Protonix Ec Tab) 40 mg PO DAILY [facility] Last Admin: 11/05/16 08:43 Dose: 40 mg Phenylephrine HCl (Dagoberto-Synephrine 0.5% Nasal [place]) 1 spry ALLAN Q4 PRN PRN Reason: Nasal congestion Sevelamer HCl (Renagel) 1,600 mg PO TID [facility] Last Admin: 11/05/16 16:00 Dose: 1,600 mg Topiramate (Topamax) 50 mg PO BID [facility] Last Admin: 11/05/16 16:03 Dose: 50 mg Vitamin B Complex/Vit C/Folic Acid (Nephro-Ajay) 1 tab PO DAILY [facility] Last Admin: 11/05/16 08:43 Dose: 1 tab - Labs Labs: 10/30/16 16:45 11/04/16 17:26 PT 17.6 Seconds (9.8-13.1) H 10/15/16 07:00 INR 1.5 (0.9-1.2) H 10/15/16 07:00 APTT 36.6 Seconds (25.6-37.1) 10/15/16 07:00 Assessment and Plan (1) Diabetes Status: Chronic (2) ESRD (end stage renal disease) Status: Chronic (3) Cellulitis of leg Status: Chronic (4) Hyperlipidemia Status: Chronic (5) Back pain Status: Acute (6) Bacteremia due to Gram-negative bacteria Status: Acute (7) Diabetes mellitus type 2 with peripheral artery disease Status: Acute (8) PVD (peripheral vascular disease) Status: Acute (9) Osteomyelitis of right foot Status: Acute (10) Fungal infection right foot Status: Acute
[2016-11-06] MEDS: Meropenem 500 MG in Sodium Chloride 0.9% 100 ML IVPB SCH (00:44)
--- NOTE | 2016-11-06 07:20 | CP.PCM.PN ---
<Sarah Chanel - Last Filed: 11/06/16 12:19> Subjective - Date & Time of Evaluation Date of Evaluation: 11/06/16 Time of Evaluation: 06:35 - Subjective Subjective: SURGERY NOTE FOR DR. MCCORMACK 46 yo Female patient 5 weeks s/p Right BKA was seen at bedside this AM. She denies of any pain to the Right lower extremity. Dressing to right lower extremity remains CDI. Patient denies of N/V/F/C or SOB Objective - Vital Signs/Intake and Output Vital Signs (last 24 hours): Temp Pulse Resp BP Pulse Ox 97.8 F 115 H 20 124/45 L 99 11/06/16 00:20 11/06/16 00:20 11/06/16 00:20 11/06/16 00:20 11/06/16 00:20 - Medications Medications: Current Medications Acetaminophen (Tylenol 325mg Tab) 650 mg PO Q4 PRN PRN Reason: Fever >100.4 F Last Admin: 10/02/16 16:27 Dose: 650 mg Acetaminophen (Tylenol 325mg Tab) 650 mg PO Q4 PRN PRN Reason: Pain, moderate (4-7) Last Admin: 09/16/16 22:34 Dose: 650 mg Albuterol Sulfate (Albuterol 0.083% Inhal Barbie (2.5 Mg/3 Ml) Ud) 2.5 mg INH RQ4 PRN PRN Reason: Shortness of Breath Albuterol/Ipratropium (Duoneb 3 Mg/0.5 Mg (3 Ml) Ud) 3 ml INH RQ4 PRN PRN Reason: Shortness of Breath Apixaban (Eliquis) 5 mg PO BID [facility] PRN Reason: Protocol Last Admin: 11/05/16 16:05 Dose: 5 mg Aspirin (Ecotrin) 81 mg PO DAILY [facility] Last Admin: 11/05/16 08:45 Dose: 81 mg Atorvastatin Calcium (Lipitor) 40 mg PO DAILY [facility] Last Admin: 11/05/16 08:47 Dose: 40 mg Benzonatate (Tessalon Perles) 200 mg PO TID PRN PRN Reason: Cough Last Admin: 10/02/16 14:07 Dose: 200 mg Cinacalcet (Sensipar) 30 mg PO DAILY [facility] Last Admin: 11/05/16 08:48 Dose: 30 mg Collagenase (Santyl) 1 applic TOP DAILY [facility] Last Admin: 11/05/16 08:44 Dose: 1 applic Diphenhydramine HCl (Benadryl) 25 mg PO Q6 PRN PRN Reason: Itching / Pruritus Epoetin Tha (Procrit) 20,000 unit IV MWF [facility] Last Admin: 11/04/16 17:43 Dose: Not Given Ergocalciferol (Drisdol 50,000 Intl Units Cap) 1 cap PO Q7D [facility] Stop: 11/06/16 11:16 Last Admin: 10/30/16 13:16 Dose: 1 cap Fluconazole (Diflucan) 100 mg PO DAILY [facility] Last Admin: 11/05/16 08:45 Dose: 100 mg Gabapentin (Neurontin) 300 mg PO TID [facility] Last Admin: 11/05/16 16:03 Dose: 300 mg Hydrocortisone (Anusol-Hc) 1 applic [place] BID PRN PRN Reason: Inflammation Hydromorphone HCl (Dilaudid) 1 mg IVP Q3H PRN PRN Reason: Pain, severe (8-10) Last Admin: 11/06/16 04:47 Dose: 1 mg Amikacin Sulfate 250 mg/ (Sodium Chloride) 101 mls @ 100.609 mls/[facility] Last Admin: 11/04/16 09:59 Dose: 100.609 mls/hr Meropenem 500 mg/ Sodium (Chloride) 100 mls @ 100 mls/hr IVPB DAILY@0100 [facility] Last Admin: 11/06/16 00:44 Dose: 100 mls/hr Sodium Chloride (Sodium Chloride 0.9%) 1,000 mls @ 10 mls/hr IV .Q24H [facility] Last Admin: 11/05/16 16:32 Dose: 10 mls/hr Piperacillin Sod/Tazobactam (Sod 2.25 gm/ Sodium Chloride) 100 mls @ 100 mls/ hr IVPB Q12@0900,2100 [facility] Last Admin: 11/05/16 20:56 Dose: 100 mls/hr Insulin Detemir (Levemir) 30 units SC HS [facility] Last Admin: 11/05/16 21:01 Dose: 30 units Insulin Human Lispro (Humalog) 8 units SC AC [facility] Last Admin: 11/05/16 16:02 Dose: 8 units Lidocaine (Lidoderm) 1 ea TD DAILY [facility] Last Admin: 11/05/16 14:11 Dose: 1 ea Linezolid (Zyvox) 600 mg PO Q12 [facility] Last Admin: 11/05/16 20:56 Dose: 600 mg Nystatin (Nystop Topical Powder) 1 applic TOP BID [facility] Last Admin: 11/05/16 16:07 Dose: 1 applic Ondansetron HCl (Zofran Inj) 4 mg IVP Q6 PRN PRN Reason: Nausea/Vomiting Last Admin: 09/19/16 10:26 Dose: 4 mg Pantoprazole Sodium (Protonix Ec Tab) 40 mg PO DAILY [facility] Last Admin: 11/05/16 08:43 Dose: 40 mg Phenylephrine HCl (Dagoberto-Synephrine 0.5% Nasal [place]) 1 spry ALLAN Q4 PRN PRN Reason: Nasal congestion Sevelamer HCl (Renagel) 1,600 mg PO TID [facility] Last Admin: 11/05/16 16:00 Dose: 1,600 mg Topiramate (Topamax) 50 mg PO BID [facility] Last Admin: 11/05/16 16:03 Dose: 50 mg Vitamin B Complex/Vit C/Folic Acid (Nephro-Ajay) 1 tab PO DAILY [facility] Last Admin: 11/05/16 08:43 Dose: 1 tab - Labs Labs: 10/30/16 16:45 11/04/16 17:26 PT 17.6 Seconds (9.8-13.1) H 10/15/16 07:00 INR 1.5 (0.9-1.2) H 10/15/16 07:00 APTT 36.6 Seconds (25.6-37.1) 10/15/16 07:00 - Constitutional Appears: Well, Non-toxic, No Acute Distress - Extremities Exam Additional comments: Right BKA dressing clean dry and intact -Mild strikethrough noted to dressing - Neurological Exam Neurological Exam: Alert, Awake, Oriented x3 - Psychiatric Exam Psychiatric exam: Normal Affect, Normal Mood - Skin Skin Exam: Normal Color, Warm Assessment and Plan - Assessment and Plan (Free Text) Assessment: 46 F 5 weeks s/p Right BKA (DOS 10/01/16) presenting with wound dehiscence Plan: Continue local wound care using enzymatic debridement with Santyl Continue supportive medical care pain control WCX shows Klebsiella MRI reports (-) of abscess formation <Raffy Mccormack - Last Filed: 11/06/16 13:35> Subjective - Subjective Subjective: Patient is stable clinically with no acute developments. Wound culture results noted. There are no systemic signs of infection at present. Continue local wound care, enzymatic debridement with Santyl, supportive care. Objective - Vital Signs/Intake and Output Vital Signs (last 24 hours): Temp Pulse Resp BP Pulse Ox 97.9 F 115 H 18 111/74 99 11/06/16 07:34 11/06/16 07:34 11/06/16 07:34 11/06/16 07:34 11/06/16 07:34 - Medications Medications: Current Medications Acetaminophen (Tylenol 325mg Tab) 650 mg PO Q4 PRN PRN Reason: Fever >100.4 F Last Admin: 10/02/16 16:27 Dose: 650 mg Acetaminophen (Tylenol 325mg Tab) 650 mg PO Q4 PRN PRN Reason: Pain, moderate (4-7) Last Admin: 09/16/16 22:34 Dose: 650 mg Albuterol Sulfate (Albuterol 0.083% Inhal Barbie (2.5 Mg/3 Ml) Ud) 2.5 mg INH RQ4 PRN PRN Reason: Shortness of Breath Albuterol/Ipratropium (Duoneb 3 Mg/0.5 Mg (3 Ml) Ud) 3 ml INH RQ4 PRN PRN Reason: Shortness of Breath Apixaban (Eliquis) 5 mg PO BID [facility] PRN Reason: Protocol Last Admin: 11/06/16 09:03 Dose: 5 mg Aspirin (Ecotrin) 81 mg PO DAILY [facility] Last Admin: 11/06/16 09:02 Dose: 81 mg Atorvastatin Calcium (Lipitor) 40 mg PO DAILY [facility] Last Admin: 11/06/16 09:03 Dose: 40 mg Benzonatate (Tessalon Perles) 200 mg PO TID PRN PRN Reason: Cough Last Admin: 10/02/16 14:07 Dose: 200 mg Cinacalcet (Sensipar) 30 mg PO DAILY [facility] Last Admin: 11/06/16 09:03 Dose: 30 mg Collagenase (Santyl) 1 applic TOP DAILY [facility] Last Admin: 11/06/16 09:01 Dose: 1 applic Diphenhydramine HCl (Benadryl) 25 mg PO Q6 PRN PRN Reason: Itching / Pruritus Epoetin Tha (Procrit) 20,000 unit IV MWF [facility] Last Admin: 11/06/16 09:10 Dose: 20,000 unit Fluconazole (Diflucan) 100 mg PO DAILY [facility] Last Admin: 11/06/16 09:03 Dose: 100 mg Gabapentin (Neurontin) 300 mg PO TID [facility] Last Admin: 11/06/16 12:44 Dose: 300 mg Hydrocortisone (Anusol-Hc) 1 applic [place] BID PRN PRN Reason: Inflammation Hydromorphone HCl (Dilaudid) 1 mg IVP Q3H PRN PRN Reason: Pain, severe (8-10) Last Admin: 11/06/16 08:57 Dose: 1 mg Amikacin Sulfate 250 mg/ (Sodium Chloride) 101 mls @ 100.609 mls[facility] Last Admin: 11/06/16 12:40 Dose: 100.609 mls/hr Meropenem 500 mg/ Sodium (Chloride) 100 mls @ 100 mls/hr IVPB DAILY@0100 [facility] Last Admin: 11/06/16 00:44 Dose: 100 mls/hr Sodium Chloride (Sodium Chloride 0.9%) 1,000 mls @ 10 mls/hr IV .Q24H [facility] Last Admin: 11/05/16 16:32 Dose: 10 mls/hr Piperacillin Sod/Tazobactam (Sod 2.25 gm/ Sodium Chloride) 100 mls @ 100 mls/ hr IVPB Q12@0900,2100 [facility] Last Admin: 11/06/16 12:41 Dose: 100 mls/hr Insulin Detemir (Levemir) 26 units SC HS [facility] Insulin Human Lispro (Humalog) 8 units SC AC [facility] Last Admin: 11/06/16 12:43 Dose: 8 units Lidocaine (Lidoderm) 1 ea TD DAILY [facility] Last Admin: 11/06/16 08:59 Dose: 1 ea Linezolid (Zyvox) 600 mg PO Q12 [facility] Last Admin: 11/06/16 09:04 Dose: 600 mg Nystatin (Nystop Topical Powder) 1 applic TOP BID [facility] Last Admin: 11/06/16 09:10 Dose: 1 applic Ondansetron HCl (Zofran Inj) 4 mg IVP Q6 PRN PRN Reason: Nausea/Vomiting Last Admin: 09/19/16 10:26 Dose: 4 mg Pantoprazole Sodium (Protonix Ec Tab) 40 mg PO DAILY [facility] Last Admin: 11/06/16 09:02 Dose: 40 mg Phenylephrine HCl (Dagoberto-Synephrine 0.5% Nasal [place]) 1 spry ALLAN Q4 PRN PRN Reason: Nasal congestion Sevelamer HCl (Renagel) 1,600 mg PO TID [facility] Last Admin: 11/06/16 12:44 Dose: 1,600 mg Topiramate (Topamax) 50 mg PO BID [facility] Last Admin: 11/06/16 09:04 Dose: 50 mg Vitamin B Complex/Vit C/Folic Acid (Nephro-Ajay) 1 tab PO DAILY [facility] Last Admin: 11/06/16 09:03 Dose: 1 tab - Labs Labs: 11/06/16 08:09 11/04/16 17:26 PT 17.6 Seconds (9.8-13.1) H 10/15/16 07:00 INR 1.5 (0.9-1.2) H 10/15/16 07:00 APTT 36.6 Seconds (25.6-37.1) 10/15/16 07:00
[2016-11-06 08:16] LABS: BASO # 0.1 K/uL (0.0-0.2); BASO % 1.3 % (0.0-2.0); EOS # 0.6 K/uL (0.0-0.7); EOS % 5.8 % (0.0-4.0); HEMATOCRIT 31.2 % (34.0-47.0); LYMPH # 1.7 K/uL (1.0-4.3); LYMPH % 17.4 % (20.0-40.0); MEAN CORPUSCULAR HEMOGLOBIN 31.3 pg (27.0-31.0); MEAN CORPUSCULAR HGB CONC 31.4 g/dL (33.0-37.0); MEAN PLATELET VOLUME 9.4 fl (7.2-11.7); MONO # 1.2 K/uL (0.0-0.8); MONO % 12.4 % (0.0-10.0); NEUT # 6.2 K/uL (1.8-7.0); NEUT % 63.1 % (50.0-75.0); RED CELL DISTRIBUTION WIDTH 26.1 % (11.5-14.5); WHITE BLOOD COUNT 9.8 K/uL (4.8-10.8)
[2016-11-06 08:25] LABS: MEAN CELL VOLUME 99.6 fl (81.0-99.0)
[2016-11-06] MEDS: Lidocaine 5% Patch TD SCH (08:59)
[2016-11-06] MEDS: Santyl Collagenase OINTMENT TOP SCH (09:01)
[2016-11-06] MEDS: Pantoprazole 40 mg EC Tab PO SCH (09:02)
[2016-11-06] MEDS: Multivitamin Vitamin B Complex (Nephro-Vite) Tab PO SCH (09:03)
[2016-11-06] MEDS: Insulin Lispro (humaLOG) 100 Units/ml Inj SC SCH ×3 (09:04→17:21)
--- NOTE | 2016-11-06 09:08 | CP.PCM.PN ---
Subjective - Date & Time of Evaluation Date of Evaluation: 11/06/16 Time of Evaluation: 09:03 - Subjective Subjective: She was seen on hemodialysis now Blood pressure 1 81 x 91 on the initial of hemodialysis now however ultrafiltration targeted to 4000 mL to be removed. So I'm expecting blood pressure will come down during dialysis and thereafter perhaps after removing this amount of fluid. Physical exam Patient is awake and conscious and appeared to be happy seen on hemodialysis reactive positively Abdomen soft The lung no rales Heart no rubs Extremity as bilateral amputation And patient and plan End stage renal disease receiving hemodialysis now and 3 times a week Friday. Good news for her noted that serum albumin on September 12 was 2.7 and an now on November 04 has gone up to 4.1 that is good response to nutrition. Objective - Vital Signs/Intake and Output Vital Signs (last 24 hours): Temp Pulse Resp BP Pulse Ox 97.9 F 115 H 18 111/74 99 11/06/16 07:34 11/06/16 07:34 11/06/16 07:34 11/06/16 07:34 11/06/16 07:34 - Medications Medications: Current Medications Acetaminophen (Tylenol 325mg Tab) 650 mg PO Q4 PRN PRN Reason: Fever >100.4 F Last Admin: 10/02/16 16:27 Dose: 650 mg Acetaminophen (Tylenol 325mg Tab) 650 mg PO Q4 PRN PRN Reason: Pain, moderate (4-7) Last Admin: 09/16/16 22:34 Dose: 650 mg Albuterol Sulfate (Albuterol 0.083% Inhal Barbie (2.5 Mg/3 Ml) Ud) 2.5 mg INH RQ4 PRN PRN Reason: Shortness of Breath Albuterol/Ipratropium (Duoneb 3 Mg/0.5 Mg (3 Ml) Ud) 3 ml INH RQ4 PRN PRN Reason: Shortness of Breath Apixaban (Eliquis) 5 mg PO BID [facility] PRN Reason: Protocol Last Admin: 11/05/16 16:05 Dose: 5 mg Aspirin (Ecotrin) 81 mg PO DAILY [facility] Last Admin: 11/05/16 08:45 Dose: 81 mg Atorvastatin Calcium (Lipitor) 40 mg PO DAILY [facility] Last Admin: 11/05/16 08:47 Dose: 40 mg Benzonatate (Tessalon Perles) 200 mg PO TID PRN PRN Reason: Cough Last Admin: 10/02/16 14:07 Dose: 200 mg Cinacalcet (Sensipar) 30 mg PO DAILY [facility] Last Admin: 11/05/16 08:48 Dose: 30 mg Collagenase (Santyl) 1 applic TOP DAILY [facility] Last Admin: 11/05/16 08:44 Dose: 1 applic Diphenhydramine HCl (Benadryl) 25 mg PO Q6 PRN PRN Reason: Itching / Pruritus Epoetin Tha (Procrit) 20,000 unit IV [facility] Last Admin: 11/04/16 17:43 Dose: Not Given Ergocalciferol (Drisdol 50,000 Intl Units Cap) 1 cap PO Q7D [facility] Stop: 11/06/16 11:16 Last Admin: 10/30/16 13:16 Dose: 1 cap Fluconazole (Diflucan) 100 mg PO DAILY [facility] Last Admin: 11/05/16 08:45 Dose: 100 mg Gabapentin (Neurontin) 300 mg PO TID [facility] Last Admin: 11/05/16 16:03 Dose: 300 mg Hydrocortisone (Anusol-Hc) 1 applic [place] BID PRN PRN Reason: Inflammation Hydromorphone HCl (Dilaudid) 1 mg IVP Q3H PRN PRN Reason: Pain, severe (8-10) Last Admin: 11/06/16 08:57 Dose: 1 mg Amikacin Sulfate 250 mg/ (Sodium Chloride) 101 mls @ 100.609 mls/hr IVPB [facility] Last Admin: 11/04/16 09:59 Dose: 100.609 mls/hr Meropenem 500 mg/ Sodium (Chloride) 100 mls @ 100 mls/hr IVPB DAILY@0100 [facility] Last Admin: 11/06/16 00:44 Dose: 100 mls/hr Sodium Chloride (Sodium Chloride 0.9%) 1,000 mls @ 10 mls/hr IV .Q24H [facility] Last Admin: 11/05/16 16:32 Dose: 10 mls/hr Piperacillin Sod/Tazobactam (Sod 2.25 gm/ Sodium Chloride) 100 mls @ 100 mls/ hr IVPB Q12@0900,2100 [facility] Last Admin: 11/05/16 20:56 Dose: 100 mls/hr Insulin Detemir (Levemir) 30 units SC HS [facility] Last Admin: 11/05/16 21:01 Dose: 30 units Insulin Human Lispro (Humalog) 8 units SC AC [facility] Last Admin: 11/05/16 16:02 Dose: 8 units Lidocaine (Lidoderm) 1 ea TD DAILY [facility] Last Admin: 11/05/16 14:11 Dose: 1 ea Linezolid (Zyvox) 600 mg PO Q12 [facility] Last Admin: 11/05/16 20:56 Dose: 600 mg Nystatin (Nystop Topical Powder) 1 applic TOP BID [facility] Last Admin: 11/05/16 16:07 Dose: 1 applic Ondansetron HCl (Zofran Inj) 4 mg IVP Q6 PRN PRN Reason: Nausea/Vomiting Last Admin: 09/19/16 10:26 Dose: 4 mg Pantoprazole Sodium (Protonix Ec Tab) 40 mg PO DAILY [facility] Last Admin: 11/05/16 08:43 Dose: 40 mg Phenylephrine HCl (Dagoberto-Synephrine 0.5% Nasal [place]) 1 spry ALLAN Q4 PRN PRN Reason: Nasal congestion Sevelamer HCl (Renagel) 1,600 mg PO TID [facility] Last Admin: 11/05/16 16:00 Dose: 1,600 mg Topiramate (Topamax) 50 mg PO BID [facility] Last Admin: 11/05/16 16:03 Dose: 50 mg Vitamin B Complex/Vit C/Folic Acid (Nephro-Ajay) 1 tab PO DAILY [facility] Last Admin: 11/05/16 08:43 Dose: 1 tab - Labs Labs: 11/06/16 08:09 11/04/16 17:26 PT 17.6 Seconds (9.8-13.1) H 10/15/16 07:00 INR 1.5 (0.9-1.2) H 10/15/16 07:00 APTT 36.6 Seconds (25.6-37.1) 10/15/16 07:00 Assessment and Plan (1) ESRD (end stage renal disease) Status: Chronic (2) Cellulitis of leg Status: Chronic
[2016-11-06] MEDS: Epoetin Alfa 20000 UNIT/ML Inj IV SCH (09:10)
--- NOTE | 2016-11-06 11:00 | CP.PCM.PN ---
Subjective - Date & Time of Evaluation Date of Evaluation: 11/06/16 Time of Evaluation: 10:58 - Subjective Subjective: Notes by Drs. Maguire, Darío, and Thierry appreciated. Patient is undergoing hemodialysis at this time. An attempt was made to remove 4 liters, but patient's bp dropped below 90 systolic. Difficulty getting readings, but finally after dialysis adjusted bp = 107/63 pulse 106. She felt lightheaded, and glucoses have been running 90-100, but now glucose ( 11am - before lunch) = 117. I spoke with Dr. Ambrose who advised that we decrease the nighttime Levemir to 26 units instead of 30. Wound dressing R Bk incision area was falling off, so I redressed. The wound shows much nice granulation tissue with a small area of brownish tissue at the right lateral border (about 2cm in diameter) and a 3-5mm area of brownish tissue near the left lateral border. Dr. Mccormack indicated that these problem areas may require high pressure debridement. For now Santyl was applied to these two problem areas, and the other parts of the wound were covered with moist saline dressings. The Right knee has some eschar. This too was treated with Santyl. So long as there may be a need for further debridement under anesthesia, we cannot transfer the patient to acute rehabilitation. Also, the wound culture positive for MDR Klebsiella is worrisome. I have had to call the laboratory to get amikacin level results. These are sent out to [facility]. The result for random level on 10/21 was 6.4 (trough is 4-8, and peak is 30). Yesterday's result is pending. Dr. Gomez is checking out the sensitivities for the Klebsiella. Meanwhile, the patient is comfortable, afebrile, not toxic. Objective - Vital Signs/Intake and Output Vital Signs (last 24 hours): Temp Pulse Resp BP Pulse Ox 97.9 F 115 H 18 111/74 99 11/06/16 07:34 11/06/16 07:34 11/06/16 07:34 11/06/16 07:34 11/06/16 07:34 - Medications Medications: Current Medications Acetaminophen (Tylenol 325mg Tab) 650 mg PO Q4 PRN PRN Reason: Fever >100.4 F Last Admin: 10/02/16 16:27 Dose: 650 mg Acetaminophen (Tylenol 325mg Tab) 650 mg PO Q4 PRN PRN Reason: Pain, moderate (4-7) Last Admin: 09/16/16 22:34 Dose: 650 mg Albuterol Sulfate (Albuterol 0.083% Inhal Barbie (2.5 Mg/3 Ml) Ud) 2.5 mg INH RQ4 PRN PRN Reason: Shortness of Breath Albuterol/Ipratropium (Duoneb 3 Mg/0.5 Mg (3 Ml) Ud) 3 ml INH RQ4 PRN PRN Reason: Shortness of Breath Apixaban (Eliquis) 5 mg PO BID [facility] PRN Reason: Protocol Last Admin: 11/06/16 09:03 Dose: 5 mg Aspirin (Ecotrin) 81 mg PO DAILY [facility] Last Admin: 11/06/16 09:02 Dose: 81 mg Atorvastatin Calcium (Lipitor) 40 mg PO DAILY [facility] Last Admin: 11/06/16 09:03 Dose: 40 mg Benzonatate (Tessalon Perles) 200 mg PO TID PRN PRN Reason: Cough Last Admin: 10/02/16 14:07 Dose: 200 mg Cinacalcet (Sensipar) 30 mg PO DAILY [facility] Last Admin: 11/06/16 09:03 Dose: 30 mg Collagenase (Santyl) 1 applic TOP DAILY [facility] Last Admin: 11/06/16 09:01 Dose: 1 applic Diphenhydramine HCl (Benadryl) 25 mg PO Q6 PRN PRN Reason: Itching / Pruritus Epoetin Tha (Procrit) 20,000 unit IV MWF [facility] Last Admin: 11/06/16 09:10 Dose: 20,000 unit Ergocalciferol (Drisdol 50,000 Intl Units Cap) 1 cap PO Q7D [facility] Stop: 11/06/16 11:16 Last Admin: 10/30/16 13:16 Dose: 1 cap Fluconazole (Diflucan) 100 mg PO DAILY [facility] Last Admin: 11/06/16 09:03 Dose: 100 mg Gabapentin (Neurontin) 300 mg PO TID [facility] Last Admin: 11/06/16 09:02 Dose: 300 mg Hydrocortisone (Anusol-Hc) 1 applic [place] BID PRN PRN Reason: Inflammation Hydromorphone HCl (Dilaudid) 1 mg IVP Q3H PRN PRN Reason: Pain, severe (8-10) Last Admin: 11/06/16 08:57 Dose: 1 mg Amikacin Sulfate 250 mg/ (Sodium Chloride) 101 mls @ 100.609 mls/hr IVPB MWF [facility] Last Admin: 11/04/16 09:59 Dose: 100.609 mls/hr Meropenem 500 mg/ Sodium (Chloride) 100 mls @ 100 mls/hr IVPB DAILY@0100 [facility] Last Admin: 11/06/16 00:44 Dose: 100 mls/hr Sodium Chloride (Sodium Chloride 0.9%) 1,000 mls @ 10 mls/hr IV .Q24H [facility] Last Admin: 11/05/16 16:32 Dose: 10 mls/hr Piperacillin Sod/Tazobactam (Sod 2.25 gm/ Sodium Chloride) 100 mls @ 100 mls/ hr IVPB Q12@0900,2100 [facility] Last Admin: 11/05/16 20:56 Dose: 100 mls/hr Insulin Detemir (Levemir) 30 units SC HS [facility] Last Admin: 11/05/16 21:01 Dose: 30 units Insulin Human Lispro (Humalog) 8 units SC AC [facility] Last Admin: 11/06/16 09:04 Dose: 8 units Lidocaine (Lidoderm) 1 ea TD DAILY [facility] Last Admin: 11/06/16 08:59 Dose: 1 ea Linezolid (Zyvox) 600 mg PO Q12 [facility] Last Admin: 11/06/16 09:04 Dose: 600 mg Nystatin (Nystop Topical Powder) 1 applic TOP BID [facility] Last Admin: 11/06/16 09:10 Dose: 1 applic Ondansetron HCl (Zofran Inj) 4 mg IVP Q6 PRN PRN Reason: Nausea/Vomiting Last Admin: 09/19/16 10:26 Dose: 4 mg Pantoprazole Sodium (Protonix Ec Tab) 40 mg PO DAILY [facility] Last Admin: 11/06/16 09:02 Dose: 40 mg Phenylephrine HCl (Dagoberto-Synephrine 0.5% Nasal [place]) 1 spry ALLAN Q4 PRN PRN Reason: Nasal congestion Sevelamer HCl (Renagel) 1,600 mg PO TID [facility] Last Admin: 11/06/16 09:00 Dose: 1,600 mg Topiramate (Topamax) 50 mg PO BID [facility] Last Admin: 11/06/16 09:04 Dose: 50 mg Vitamin B Complex/Vit C/Folic Acid (Nephro-Ajay) 1 tab PO DAILY [facility] Last Admin: 11/06/16 09:03 Dose: 1 tab - Labs Labs: 11/06/16 08:09 11/04/16 17:26 PT 17.6 Seconds (9.8-13.1) H 10/15/16 07:00 INR 1.5 (0.9-1.2) H 10/15/16 07:00 APTT 36.6 Seconds (25.6-37.1) 10/15/16 07:00 - Constitutional Appears: No Acute Distress - Head Exam Head Exam: NORMAL INSPECTION - Eye Exam Eye Exam: Normal appearance - ENT Exam ENT Exam: Mucous Membranes Moist - Neck Exam Neck Exam: Normal Inspection - Respiratory Exam Respiratory Exam: Clear to Ausculation Bilateral, NORMAL BREATHING PATTERN - Cardiovascular Exam Cardiovascular Exam: REGULAR RHYTHM, +S1, +S2 - GI/Abdominal Exam GI & Abdominal Exam: Soft - Extremities Exam Additional comments: SEE SUBJECTIVE - Back Exam Back Exam: NORMAL INSPECTION - Neurological Exam Neurological Exam: Alert, Awake, CN II-XII Intact, Oriented x3 - Psychiatric Exam Psychiatric exam: Normal Affect, Normal Mood - Skin Skin Exam: Dry, Normal Color, Warm Assessment and Plan (1) Status post below knee amputation of right lower extremity Assessment & Plan: SEE SUBJECTIVE Status: Acute (2) ESRD (end stage renal disease) on dialysis Status: Chronic (3) DM type 2 (diabetes mellitus, type 2) Status: Chronic (4) Coagulopathy Status: Chronic (5) Peripheral arterial occlusive disease Status: Chronic
--- NOTE | 2016-11-06 11:08 | CP.PCM.PN ---
Subjective - Date & Time of Evaluation Date of Evaluation: 11/06/16 (N) Time of Evaluation: 11:05 - Subjective Subjective: Pt is feeling fine, no oozing from the stump. Her hgb today is 9.8 gms and has been stable for a few weeks . Objective - Vital Signs/Intake and Output Vital Signs (last 24 hours): Temp Pulse Resp BP Pulse Ox 97.9 F 115 H 18 111/74 99 11/06/16 07:34 11/06/16 07:34 11/06/16 07:34 11/06/16 07:34 11/06/16 07:34 - Medications Medications: Current Medications Acetaminophen (Tylenol 325mg Tab) 650 mg PO Q4 PRN PRN Reason: Fever >100.4 F Last Admin: 10/02/16 16:27 Dose: 650 mg Acetaminophen (Tylenol 325mg Tab) 650 mg PO Q4 PRN PRN Reason: Pain, moderate (4-7) Last Admin: 09/16/16 22:34 Dose: 650 mg Albuterol Sulfate (Albuterol 0.083% Inhal Barbie (2.5 Mg/3 Ml) Ud) 2.5 mg INH RQ4 PRN PRN Reason: Shortness of Breath Albuterol/Ipratropium (Duoneb 3 Mg/0.5 Mg (3 Ml) Ud) 3 ml INH RQ4 PRN PRN Reason: Shortness of Breath Apixaban (Eliquis) 5 mg PO BID [facility] PRN Reason: Protocol Last Admin: 11/06/16 09:03 Dose: 5 mg Aspirin (Ecotrin) 81 mg PO DAILY [facility] Last Admin: 11/06/16 09:02 Dose: 81 mg Atorvastatin Calcium (Lipitor) 40 mg PO DAILY [facility] Last Admin: 11/06/16 09:03 Dose: 40 mg Benzonatate (Tessalon Perles) 200 mg PO TID PRN PRN Reason: Cough Last Admin: 10/02/16 14:07 Dose: 200 mg Cinacalcet (Sensipar) 30 mg PO DAILY [facility] Last Admin: 11/06/16 09:03 Dose: 30 mg Collagenase (Santyl) 1 applic TOP DAILY [facility] Last Admin: 11/06/16 09:01 Dose: 1 applic Diphenhydramine HCl (Benadryl) 25 mg PO Q6 PRN PRN Reason: Itching / Pruritus Epoetin Tha (Procrit) 20,000 unit IV MWF [facility] Last Admin: 11/06/16 09:10 Dose: 20,000 unit Ergocalciferol (Drisdol 50,000 Intl Units Cap) 1 cap PO Q7D [facility] Stop: 11/06/16 11:16 Last Admin: 10/30/16 13:16 Dose: 1 cap Fluconazole (Diflucan) 100 mg PO DAILY [facility] Last Admin: 11/06/16 09:03 Dose: 100 mg Gabapentin (Neurontin) 300 mg PO TID [facility] Last Admin: 11/06/16 09:02 Dose: 300 mg Hydrocortisone (Anusol-Hc) 1 applic [place] BID PRN PRN Reason: Inflammation Hydromorphone HCl (Dilaudid) 1 mg IVP Q3H PRN PRN Reason: Pain, severe (8-10) Last Admin: 11/06/16 08:57 Dose: 1 mg Amikacin Sulfate 250 mg/ (Sodium Chloride) 101 mls @ 100.609 mls/hr [facility] Last Admin: 11/04/16 09:59 Dose: 100.609 mls/hr Meropenem 500 mg/ Sodium (Chloride) 100 mls @ 100 mls/hr IVPB DAILY@0100 [facility] Last Admin: 11/06/16 00:44 Dose: 100 mls/hr Sodium Chloride (Sodium Chloride 0.9%) 1,000 mls @ 10 mls/hr IV .Q24H [facility] Last Admin: 11/05/16 16:32 Dose: 10 mls/hr Piperacillin Sod/Tazobactam (Sod 2.25 gm/ Sodium Chloride) 100 mls @ 100 mls/ hr IVPB Q12@0900,2100 [facility] Last Admin: 11/05/16 20:56 Dose: 100 mls/hr Insulin Detemir (Levemir) 30 units SC HS [facility] Last Admin: 11/05/16 21:01 Dose: 30 units Insulin Human Lispro (Humalog) 8 units SC AC [facility] Last Admin: 11/06/16 09:04 Dose: 8 units Lidocaine (Lidoderm) 1 ea TD DAILY [facility] Last Admin: 11/06/16 08:59 Dose: 1 ea Linezolid (Zyvox) 600 mg PO Q12 [facility] Last Admin: 11/06/16 09:04 Dose: 600 mg Nystatin (Nystop Topical Powder) 1 applic TOP BID [facility] Last Admin: 11/06/16 09:10 Dose: 1 applic Ondansetron HCl (Zofran Inj) 4 mg IVP Q6 PRN PRN Reason: Nausea/Vomiting Last Admin: 09/19/16 10:26 Dose: 4 mg Pantoprazole Sodium (Protonix Ec Tab) 40 mg PO DAILY [facility] Last Admin: 11/06/16 09:02 Dose: 40 mg Phenylephrine HCl (Dagoberto-Synephrine 0.5% Nasal [place]) 1 spry ALLAN Q4 PRN PRN Reason: Nasal congestion Sevelamer HCl (Renagel) 1,600 mg PO TID [facility] Last Admin: 11/06/16 09:00 Dose: 1,600 mg Topiramate (Topamax) 50 mg PO BID [facility] Last Admin: 11/06/16 09:04 Dose: 50 mg Vitamin B Complex/Vit C/Folic Acid (Nephro-Ajay) 1 tab PO DAILY [facility] Last Admin: 11/06/16 09:03 Dose: 1 tab - Labs Labs: 11/06/16 08:09 11/04/16 17:26 PT 17.6 Seconds (9.8-13.1) H 10/15/16 07:00 INR 1.5 (0.9-1.2) H 10/15/16 07:00 APTT 36.6 Seconds (25.6-37.1) 10/15/16 07:00
[2016-11-06] MEDS: Ergocalciferol 50,000 Intl Units Cap PO SCH (12:43)
[2016-11-06] MEDS: Sodium Chloride 0.9% 1,000 ML IV SCH (17:29)
[2016-11-06 21:17] LABS: AMIKACIN 10.4 mg/L (see note)
[2016-11-06] MEDS: Insulin Detemir 100 Units/ml Inj SC SCH (22:43)
--- NOTE | 2016-11-06 23:35 | CP.PCM.PN ---
Subjective - Date & Time of Evaluation Date of Evaluation: 11/06/16 Time of Evaluation: 21:00 - Subjective Subjective: She has no seizures, she is receiving Topamax 50 mg BID She has changes in her medicine for D.M by reducing the night time Levemir due to Borderline Glucose of 90 to 110 She is interactive, awake alert oriented, fluent coherent. She has received today her session of Hemodialysis. Objective - Vital Signs/Intake and Output Vital Signs (last 24 hours): Temp Pulse Resp BP Pulse Ox 98.6 F 64 18 94/54 L 98 11/06/16 16:10 11/06/16 16:10 11/06/16 16:10 11/06/16 16:10 11/06/16 16:10 - Medications Medications: Current Medications Acetaminophen (Tylenol 325mg Tab) 650 mg PO Q4 PRN PRN Reason: Fever >100.4 F Last Admin: 10/02/16 16:27 Dose: 650 mg Acetaminophen (Tylenol 325mg Tab) 650 mg PO Q4 PRN PRN Reason: Pain, moderate (4-7) Last Admin: 09/16/16 22:34 Dose: 650 mg Albuterol Sulfate (Albuterol 0.083% Inhal Barbie (2.5 Mg/3 Ml) Ud) 2.5 mg INH RQ4 PRN PRN Reason: Shortness of Breath Albuterol/Ipratropium (Duoneb 3 Mg/0.5 Mg (3 Ml) Ud) 3 ml INH RQ4 PRN PRN Reason: Shortness of Breath Apixaban (Eliquis) 5 mg PO BID [facility] PRN Reason: Protocol Last Admin: 11/06/16 17:22 Dose: 5 mg Aspirin (Ecotrin) 81 mg PO DAILY [facility] Last Admin: 11/06/16 09:02 Dose: 81 mg Atorvastatin Calcium (Lipitor) 40 mg PO DAILY [facility] Last Admin: 11/06/16 09:03 Dose: 40 mg Benzonatate (Tessalon Perles) 200 mg PO TID PRN PRN Reason: Cough Last Admin: 10/02/16 14:07 Dose: 200 mg Cinacalcet (Sensipar) 30 mg PO DAILY [facility] Last Admin: 11/06/16 09:03 Dose: 30 mg Collagenase (Santyl) 1 applic TOP DAILY [facility] Last Admin: 11/06/16 09:01 Dose: 1 applic Diphenhydramine HCl (Benadryl) 25 mg PO Q6 PRN PRN Reason: Itching / Pruritus Epoetin Tha (Procrit) 20,000 unit IV MWF [facility] Last Admin: 11/06/16 09:10 Dose: 20,000 unit Fluconazole (Diflucan) 100 mg PO DAILY [facility] Last Admin: 11/06/16 09:03 Dose: 100 mg Gabapentin (Neurontin) 300 mg PO TID [facility] Last Admin: 11/06/16 17:22 Dose: 300 mg Hydrocortisone (Anusol-Hc) 1 applic [place] BID PRN PRN Reason: Inflammation Hydromorphone HCl (Dilaudid) 1 mg IVP Q3H PRN PRN Reason: Pain, severe (8-10) Last Admin: 11/06/16 20:25 Dose: 1 mg Amikacin Sulfate 250 mg/ (Sodium Chloride) 101 mls @ 100.609 mls[facility] Last Admin: 11/06/16 12:40 Dose: 100.609 mls/hr Meropenem 500 mg/ Sodium (Chloride) 100 mls @ 100 mls/hr IVPB DAILY@0100 [facility] Last Admin: 11/06/16 00:44 Dose: 100 mls/hr Sodium Chloride (Sodium Chloride 0.9%) 1,000 mls @ 10 mls/hr IV .Q24H [facility] Last Admin: 11/06/16 17:29 Dose: 10 mls/hr Piperacillin Sod/Tazobactam (Sod 2.25 gm/ Sodium Chloride) 100 mls @ 100 mls/ hr IVPB Q12@0900,2100 [facility] Last Admin: 11/06/16 20:17 Dose: 100 mls/hr Insulin Detemir (Levemir) 26 units SC HS [facility] Last Admin: 11/06/16 22:43 Dose: 26 u Insulin Human Lispro (Humalog) 8 units SC AC [facility] Last Admin: 11/06/16 17:21 Dose: 8 units Lidocaine (Lidoderm) 1 ea TD DAILY [facility] Last Admin: 11/06/16 08:59 Dose: 1 ea Linezolid (Zyvox) 600 mg PO Q12 [facility] Last Admin: 11/06/16 20:18 Dose: 600 mg Nystatin (Nystop Topical Powder) 1 applic TOP BID [facility] Last Admin: 11/06/16 17:25 Dose: 1 applic Ondansetron HCl (Zofran Inj) 4 mg IVP Q6 PRN PRN Reason: Nausea/Vomiting Last Admin: 09/19/16 10:26 Dose: 4 mg Pantoprazole Sodium (Protonix Ec Tab) 40 mg PO DAILY [facility] Last Admin: 11/06/16 09:02 Dose: 40 mg Phenylephrine HCl (Dagoberto-Synephrine 0.5% Nasal [place]) 1 spry ALLAN Q4 PRN PRN Reason: Nasal congestion Sevelamer HCl (Renagel) 1,600 mg PO TID [facility] Last Admin: 11/06/16 17:22 Dose: 1,600 mg Topiramate (Topamax) 50 mg PO BID [facility] Last Admin: 11/06/16 17:23 Dose: 50 mg Vitamin B Complex/Vit C/Folic Acid (Nephro-Ajay) 1 tab PO DAILY [facility] Last Admin: 11/06/16 09:03 Dose: 1 tab - Labs Labs: 11/06/16 08:09 11/04/16 17:26 PT 17.6 Seconds (9.8-13.1) H 10/15/16 07:00 INR 1.5 (0.9-1.2) H 10/15/16 07:00 APTT 36.6 Seconds (25.6-37.1) 10/15/16 07:00 Assessment and Plan (1) Diabetes Status: Chronic (2) ESRD (end stage renal disease) Status: Chronic (3) Cellulitis of leg Status: Chronic (4) Hyperlipidemia Status: Chronic (5) Back pain Status: Acute (6) Bacteremia due to Gram-negative bacteria Status: Acute (7) Diabetes mellitus type 2 with peripheral artery disease Status: Acute (8) PVD (peripheral vascular disease) Status: Acute (9) Osteomyelitis of right foot Status: Acute (10) Fungal infection right foot Status: Acute
[2016-11-07] MEDS: Meropenem 500 MG in Sodium Chloride 0.9% 100 ML IVPB SCH (00:11)
[2016-11-07] MEDS: Pantoprazole 40 mg EC Tab PO SCH (08:26)
[2016-11-07] MEDS: Lidocaine 5% Patch TD SCH (08:27)
[2016-11-07] MEDS: Insulin Lispro (humaLOG) 100 Units/ml Inj SC SCH ×3 (08:28→17:19)
[2016-11-07] MEDS: Santyl Collagenase OINTMENT TOP SCH (08:28)
[2016-11-07] MEDS: Multivitamin Vitamin B Complex (Nephro-Vite) Tab PO SCH (08:29)
--- NOTE | 2016-11-07 16:55 | CP.PCM.PN ---
Subjective - Date & Time of Evaluation Date of Evaluation: 11/07/16 Time of Evaluation: 16:52 - Subjective Subjective: Patient is sitting in recliner. No cough, fevers, or other problems. No pain in right surgical site. Wound dressed by [place] RN. No drainage or odor noted. Santyl applied to one area of eschar. Feels ok on new insulin regimen with lowered dose (to 26 units) of bedtime Levemir and tid (ac) short acting insultin - per Dr. Ambrose Physical therapy is proceeding well. Dr. Lemon is still researching the sensitivity of the positive Klebsiella culture of right BK site (cultured on 11/02). To continue current antibiotics for now. Objective - Vital Signs/Intake and Output Vital Signs (last 24 hours): Temp Pulse Resp BP Pulse Ox 98.3 F 113 H 18 105/57 L 97 11/07/16 16:23 11/07/16 16:23 11/07/16 16:23 11/07/16 16:23 11/07/16 16:23 - Medications Medications: Current Medications Acetaminophen (Tylenol 325mg Tab) 650 mg PO Q4 PRN PRN Reason: Fever >100.4 F Last Admin: 10/02/16 16:27 Dose: 650 mg Acetaminophen (Tylenol 325mg Tab) 650 mg PO Q4 PRN PRN Reason: Pain, moderate (4-7) Last Admin: 09/16/16 22:34 Dose: 650 mg Albuterol Sulfate (Albuterol 0.083% Inhal Barbie (2.5 Mg/3 Ml) Ud) 2.5 mg INH RQ4 PRN PRN Reason: Shortness of Breath Albuterol/Ipratropium (Duoneb 3 Mg/0.5 Mg (3 Ml) Ud) 3 ml INH RQ4 PRN PRN Reason: Shortness of Breath Apixaban (Eliquis) 5 mg PO BID JASPER PRN Reason: Protocol Last Admin: 11/07/16 08:27 Dose: 5 mg Aspirin (Ecotrin) 81 mg PO DAILY [facility] Last Admin: 11/07/16 08:28 Dose: 81 mg Atorvastatin Calcium (Lipitor) 40 mg PO DAILY [facility] Last Admin: 11/07/16 08:28 Dose: 40 mg Benzonatate (Tessalon Perles) 200 mg PO TID PRN PRN Reason: Cough Last Admin: 10/02/16 14:07 Dose: 200 mg Cinacalcet (Sensipar) 30 mg PO DAILY [facility] Last Admin: 11/07/16 08:27 Dose: 30 mg Collagenase (Santyl) 1 applic TOP DAILY [facility] Last Admin: 11/07/16 08:28 Dose: 1 applic Diphenhydramine HCl (Benadryl) 25 mg PO Q6 PRN PRN Reason: Itching / Pruritus Epoetin Tha (Procrit) 20,000 unit IV [facility] Last Admin: 11/06/16 09:10 Dose: 20,000 unit Fluconazole (Diflucan) 100 mg PO DAILY [facility] Last Admin: 11/07/16 08:27 Dose: 100 mg Gabapentin (Neurontin) 300 mg PO TID [facility] Last Admin: 11/07/16 12:44 Dose: 300 mg Hydrocortisone (Anusol-Hc) 1 applic [place] BID PRN PRN Reason: Inflammation Hydromorphone HCl (Dilaudid) 1 mg IVP Q3H PRN PRN Reason: Pain, severe (8-10) Last Admin: 11/07/16 14:20 Dose: 1 mg Amikacin Sulfate 250 mg/ (Sodium Chloride) 101 mls @ 100.609 mls[facility] Last Admin: 11/06/16 12:40 Dose: 100.609 mls/hr Meropenem 500 mg/ Sodium (Chloride) 100 mls @ 100 mls/hr IVPB DAILY@0100 [facility] Last Admin: 11/07/16 00:11 Dose: 100 mls/hr Sodium Chloride (Sodium Chloride 0.9%) 1,000 mls @ 10 mls/hr IV .Q24H [facility] Last Admin: 11/06/16 17:29 Dose: 10 mls/hr Piperacillin Sod/Tazobactam (Sod 2.25 gm/ Sodium Chloride) 100 mls @ 100 mls/ hr IVPB Q12@0900,2100 [facility] Last Admin: 11/07/16 08:33 Dose: 100 mls/hr Insulin Detemir (Levemir) 26 units SC HS [facility] Last Admin: 11/06/16 22:43 Dose: 26 u Insulin Human Lispro (Humalog) 8 units SC AC [facility] Last Admin: 11/07/16 12:43 Dose: 8 units Lidocaine (Lidoderm) 1 ea TD DAILY [facility] Last Admin: 11/07/16 08:27 Dose: 1 ea Linezolid (Zyvox) 600 mg PO Q12 [facility] Last Admin: 11/07/16 08:26 Dose: 600 mg Nystatin (Nystop Topical Powder) 1 applic TOP BID [facility] Last Admin: 11/07/16 09:15 Dose: 1 applic Ondansetron HCl (Zofran Inj) 4 mg IVP Q6 PRN PRN Reason: Nausea/Vomiting Last Admin: 09/19/16 10:26 Dose: 4 mg Pantoprazole Sodium (Protonix Ec Tab) 40 mg PO DAILY [facility] Last Admin: 11/07/16 08:26 Dose: 40 mg Phenylephrine HCl (Dagoberto-Synephrine 0.5% Nasal [place]) 1 spry ALLAN Q4 PRN PRN Reason: Nasal congestion Sevelamer HCl (Renagel) 1,600 mg PO TID [facility] Last Admin: 11/07/16 12:43 Dose: 1,600 mg Topiramate (Topamax) 50 mg PO BID [facility] Last Admin: 11/07/16 08:28 Dose: 50 mg Vitamin B Complex/Vit C/Folic Acid (Nephro-Ajay) 1 tab PO DAILY [facility] Last Admin: 11/07/16 08:29 Dose: 1 tab - Labs Labs: 11/06/16 08:09 11/04/16 17:26 PT 17.6 Seconds (9.8-13.1) H 10/15/16 07:00 INR 1.5 (0.9-1.2) H 10/15/16 07:00 APTT 36.6 Seconds (25.6-37.1) 10/15/16 07:00 - Constitutional Appears: No Acute Distress - Head Exam Head Exam: NORMAL INSPECTION - ENT Exam ENT Exam: Mucous Membranes Moist - Neck Exam Neck Exam: Normal Inspection - Respiratory Exam Respiratory Exam: Clear to Ausculation Bilateral - Cardiovascular Exam Cardiovascular Exam: REGULAR RHYTHM, +S1, +S2 - GI/Abdominal Exam GI & Abdominal Exam: Soft - Extremities Exam Additional comments: See subjective for r leg findings. - Back Exam Back Exam: NORMAL INSPECTION - Neurological Exam Neurological Exam: Alert, Awake - Skin Skin Exam: Dry, Intact, Normal Color, Warm Additional comments: Buttock lesion has healed. Excoriations beneath breasts have healed. Assessment and Plan (1) Status post below knee amputation of right lower extremity Assessment & Plan: Slow progress in healing. We will continue present treatments for now, but right BK wound may need further debridement under anesthesia. Continue physical and occupational therapy. Status: Acute (2) ESRD (end stage renal disease) on dialysis Assessment & Plan: Stable Status: Chronic (3) DM type 2 (diabetes mellitus, type 2) Assessment & Plan: Nicely controlled on current regimen. Status: Chronic (4) Coagulopathy Assessment & Plan: Continues on Eliquis and aspirin. Status: Chronic (5) Peripheral arterial occlusive disease Status: Chronic
[2016-11-07] MEDS: Sodium Chloride 0.9% 1,000 ML IV SCH (18:05)
[2016-11-07] MEDS ORDERED: Ergocalciferol 50,000 Intl Units Cap PO SCH (21:45)
--- NOTE | 2016-11-07 21:47 | CP.PCM.PN ---
Subjective - Date & Time of Evaluation Date of Evaluation: 11/07/16 Time of Evaluation: 20:05 - Subjective Subjective: Vitamin Level is 21 only Will give another course of Ergocalciferol and Oscal. There is no Seizures. She is on Topamax. Her Right BKA Stump is reported to be clean. She looks well responsive to her Antibiotics. Hemodialysis in AM. She is interactive and awake alert oriented. Objective - Vital Signs/Intake and Output Vital Signs (last 24 hours): Temp Pulse Resp BP Pulse Ox 98.3 F 113 H 18 105/57 L 97 11/07/16 16:23 11/07/16 16:23 11/07/16 16:23 11/07/16 16:23 11/07/16 16:23 - Medications Medications: Current Medications Acetaminophen (Tylenol 325mg Tab) 650 mg PO Q4 PRN PRN Reason: Fever >100.4 F Last Admin: 10/02/16 16:27 Dose: 650 mg Acetaminophen (Tylenol 325mg Tab) 650 mg PO Q4 PRN PRN Reason: Pain, moderate (4-7) Last Admin: 09/16/16 22:34 Dose: 650 mg Albuterol Sulfate (Albuterol 0.083% Inhal Barbie (2.5 Mg/3 Ml) Ud) 2.5 mg INH RQ4 PRN PRN Reason: Shortness of Breath Albuterol/Ipratropium (Duoneb 3 Mg/0.5 Mg (3 Ml) Ud) 3 ml INH RQ4 PRN PRN Reason: Shortness of Breath Apixaban (Eliquis) 5 mg PO BID JASPER PRN Reason: Protocol Last Admin: 11/07/16 17:18 Dose: 5 mg Aspirin (Ecotrin) 81 mg PO DAILY [facility] Last Admin: 11/07/16 08:28 Dose: 81 mg Atorvastatin Calcium (Lipitor) 40 mg PO DAILY [facility] Last Admin: 11/07/16 08:28 Dose: 40 mg Benzonatate (Tessalon Perles) 200 mg PO TID PRN PRN Reason: Cough Last Admin: 10/02/16 14:07 Dose: 200 mg Cinacalcet (Sensipar) 30 mg PO DAILY [facility] Last Admin: 11/07/16 08:27 Dose: 30 mg Collagenase (Santyl) 1 applic TOP DAILY [facility] Last Admin: 11/07/16 08:28 Dose: 1 applic Diphenhydramine HCl (Benadryl) 25 mg PO Q6 PRN PRN Reason: Itching / Pruritus Epoetin Tha (Procrit) 20,000 unit IV MWF [facility] Last Admin: 11/06/16 09:10 Dose: 20,000 unit Fluconazole (Diflucan) 100 mg PO DAILY [facility] Last Admin: 11/07/16 08:27 Dose: 100 mg Gabapentin (Neurontin) 300 mg PO TID [facility] Last Admin: 11/07/16 17:18 Dose: 300 mg Hydrocortisone (Anusol-Hc) 1 applic IN BID PRN PRN Reason: Inflammation Hydromorphone HCl (Dilaudid) 1 mg IVP Q3H PRN PRN Reason: Pain, severe (8-10) Last Admin: 11/07/16 18:01 Dose: 1 mg Amikacin Sulfate 250 mg/ (Sodium Chloride) 101 mls @ 100.609 mls[facility] Last Admin: 11/06/16 12:40 Dose: 100.609 mls/hr Meropenem 500 mg/ Sodium (Chloride) 100 mls @ 100 mls/hr IVPB DAILY@0100 [facility] Last Admin: 11/07/16 00:11 Dose: 100 mls/hr Sodium Chloride (Sodium Chloride 0.9%) 1,000 mls @ 10 mls/hr IV .Q24H [facility] Last Admin: 11/07/16 18:05 Dose: 10 mls/hr Piperacillin Sod/Tazobactam (Sod 2.25 gm/ Sodium Chloride) 100 mls @ 100 mls/ hr IVPB Q12@0900,2100 [facility] Last Admin: 11/07/16 08:33 Dose: 100 mls/hr Insulin Detemir (Levemir) 26 units SC HS [facility] Last Admin: 11/06/16 22:43 Dose: 26 u Insulin Human Lispro (Humalog) 8 units SC AC [facility] Last Admin: 11/07/16 17:19 Dose: 8 units Lidocaine (Lidoderm) 1 ea TD DAILY [facility] Last Admin: 11/07/16 08:27 Dose: 1 ea Linezolid (Zyvox) 600 mg PO Q12 [facility] Last Admin: 11/07/16 08:26 Dose: 600 mg Nystatin (Nystop Topical Powder) 1 applic TOP BID [facility] Last Admin: 11/07/16 17:19 Dose: 1 applic Ondansetron HCl (Zofran Inj) 4 mg IVP Q6 PRN PRN Reason: Nausea/Vomiting Last Admin: 09/19/16 10:26 Dose: 4 mg Pantoprazole Sodium (Protonix Ec Tab) 40 mg PO DAILY [facility] Last Admin: 11/07/16 08:26 Dose: 40 mg Phenylephrine HCl (Dagoberto-Synephrine 0.5% Nasal [place]) 1 spry ALLAN Q4 PRN PRN Reason: Nasal congestion Sevelamer HCl (Renagel) 1,600 mg PO TID [facility] Last Admin: 11/07/16 17:18 Dose: 1,600 mg Topiramate (Topamax) 50 mg PO BID [facility] Last Admin: 11/07/16 17:18 Dose: 50 mg Vitamin B Complex/Vit C/Folic Acid (Nephro-Ajay) 1 tab PO DAILY [facility] Last Admin: 11/07/16 08:29 Dose: 1 tab - Labs Labs: 11/06/16 08:09 11/04/16 17:26 PT 17.6 Seconds (9.8-13.1) H 10/15/16 07:00 INR 1.5 (0.9-1.2) H 10/15/16 07:00 APTT 36.6 Seconds (25.6-37.1) 10/15/16 07:00 Assessment and Plan (1) Diabetes Status: Chronic (2) ESRD (end stage renal disease) Status: Chronic (3) Cellulitis of leg Status: Chronic (4) Hyperlipidemia Status: Chronic (5) Back pain Status: Acute (6) Bacteremia due to Gram-negative bacteria Status: Acute (7) Diabetes mellitus type 2 with peripheral artery disease Status: Acute (8) PVD (peripheral vascular disease) Status: Acute (9) Osteomyelitis of right foot Status: Acute (10) Fungal infection right foot Status: Acute
[2016-11-07] MEDS: Insulin Detemir 100 Units/ml Inj SC SCH (22:43)
[2016-11-08] MEDS: Meropenem 500 MG in Sodium Chloride 0.9% 100 ML IVPB SCH (01:07)
--- NOTE | 2016-11-08 07:54 | CP.PCM.PN ---
<DaríoAshlySandra - Last Filed: 11/08/16 08:04> Subjective - Date & Time of Evaluation Date of Evaluation: 11/08/16 Time of Evaluation: 06:55 - Subjective Subjective: SURGERY NOTE FOR DR. MCCORMACK 46 yo Female patient 5 weeks s/p Right BKA was seen at bedside this AM. Patient denies of any overnight distress. Patient denies of N/V/F/C or SOB Objective - Vital Signs/Intake and Output Vital Signs (last 24 hours): Temp Pulse Resp BP Pulse Ox 97.5 F L 115 H 18 102/63 100 11/08/16 07:20 11/08/16 07:20 11/08/16 07:20 11/08/16 07:20 11/08/16 07:20 - Medications Medications: Current Medications Acetaminophen (Tylenol 325mg Tab) 650 mg PO Q4 PRN PRN Reason: Fever >100.4 F Last Admin: 10/02/16 16:27 Dose: 650 mg Acetaminophen (Tylenol 325mg Tab) 650 mg PO Q4 PRN PRN Reason: Pain, moderate (4-7) Last Admin: 09/16/16 22:34 Dose: 650 mg Albuterol Sulfate (Albuterol 0.083% Inhal Barbie (2.5 Mg/3 Ml) Ud) 2.5 mg INH RQ4 PRN PRN Reason: Shortness of Breath Albuterol/Ipratropium (Duoneb 3 Mg/0.5 Mg (3 Ml) Ud) 3 ml INH RQ4 PRN PRN Reason: Shortness of Breath Apixaban (Eliquis) 5 mg PO BID [facility] PRN Reason: Protocol Last Admin: 11/07/16 17:18 Dose: 5 mg Aspirin (Ecotrin) 81 mg PO DAILY [facility] Last Admin: 11/07/16 08:28 Dose: 81 mg Atorvastatin Calcium (Lipitor) 40 mg PO DAILY [facility] Last Admin: 11/07/16 08:28 Dose: 40 mg Benzonatate (Tessalon Perles) 200 mg PO TID PRN PRN Reason: Cough Last Admin: 10/02/16 14:07 Dose: 200 mg Calcium Carbonate (Oscal) 500 mg PO BIDWM [facility] Cinacalcet (Sensipar) 30 mg PO DAILY [facility] Last Admin: 11/07/16 08:27 Dose: 30 mg Collagenase (Santyl) 1 applic TOP DAILY [facility] Last Admin: 11/07/16 08:28 Dose: 1 applic Diphenhydramine HCl (Benadryl) 25 mg PO Q6 PRN PRN Reason: Itching / Pruritus Epoetin Tha (Procrit) 20,000 unit IV [facility] Last Admin: 11/06/16 09:10 Dose: 20,000 unit Ergocalciferol (Drisdol 50,000 Intl Units Cap) 1 cap PO WED [facility] Fluconazole (Diflucan) 100 mg PO DAILY [facility] Last Admin: 11/07/16 08:27 Dose: 100 mg Gabapentin (Neurontin) 300 mg PO TID [facility] Last Admin: 11/07/16 17:18 Dose: 300 mg Hydrocortisone (Anusol-Hc) 1 applic [place] BID PRN PRN Reason: Inflammation Hydromorphone HCl (Dilaudid) 1 mg IVP Q3H PRN PRN Reason: Pain, severe (8-10) Last Admin: 11/08/16 05:50 Dose: 1 mg Amikacin Sulfate 250 mg/ (Sodium Chloride) 101 mls @ 100.609 mls/hr IVPB [facility] Last Admin: 11/06/16 12:40 Dose: 100.609 mls/hr Meropenem 500 mg/ Sodium (Chloride) 100 mls @ 100 mls/hr IVPB DAILY@0100 [facility] Last Admin: 11/08/16 01:07 Dose: 100 mls/hr Sodium Chloride (Sodium Chloride 0.9%) 1,000 mls @ 10 mls/hr IV .Q24H [facility] Last Admin: 11/07/16 18:05 Dose: 10 mls/hr Piperacillin Sod/Tazobactam (Sod 2.25 gm/ Sodium Chloride) 100 mls @ 100 mls/ hr IVPB Q12@0900,2100 [facility] Last Admin: 11/07/16 21:39 Dose: 100 mls/hr Insulin Detemir (Levemir) 26 units SC HS [facility] Last Admin: 11/07/16 22:43 Dose: 26 u Insulin Human Lispro (Humalog) 8 units SC AC [facility] Last Admin: 11/07/16 17:19 Dose: 8 units Lidocaine (Lidoderm) 1 ea TD DAILY [facility] Last Admin: 11/07/16 08:27 Dose: 1 ea Linezolid (Zyvox) 600 mg PO Q12 [facility] Last Admin: 11/07/16 21:39 Dose: 600 mg Nystatin (Nystop Topical Powder) 1 applic TOP BID [facility] Last Admin: 11/07/16 17:19 Dose: 1 applic Ondansetron HCl (Zofran Inj) 4 mg IVP Q6 PRN PRN Reason: Nausea/Vomiting Last Admin: 09/19/16 10:26 Dose: 4 mg Pantoprazole Sodium (Protonix Ec Tab) 40 mg PO DAILY [facility] Last Admin: 11/07/16 08:26 Dose: 40 mg Phenylephrine HCl (Dagoberto-Synephrine 0.5% Nasal [place]) 1 spry ALLAN Q4 PRN PRN Reason: Nasal congestion Sevelamer HCl (Renagel) 1,600 mg PO TID [facility] Last Admin: 11/07/16 17:18 Dose: 1,600 mg Topiramate (Topamax) 50 mg PO BID [facility] Last Admin: 11/07/16 17:18 Dose: 50 mg Vitamin B Complex/Vit C/Folic Acid (Nephro-Ajay) 1 tab PO DAILY [facility] Last Admin: 11/07/16 08:29 Dose: 1 tab - Labs Labs: 11/06/16 08:09 11/04/16 17:26 PT 17.6 Seconds (9.8-13.1) H 10/15/16 07:00 INR 1.5 (0.9-1.2) H 10/15/16 07:00 APTT 36.6 Seconds (25.6-37.1) 10/15/16 07:00 - Constitutional Appears: Well, Non-toxic, No Acute Distress - Extremities Exam Additional comments: Dressing to right lower extremity remains clean dry and intact - Neurological Exam Neurological Exam: Alert, Awake, Oriented x3 - Psychiatric Exam Psychiatric exam: Normal Affect, Normal Mood - Skin Skin Exam: Normal Color, Warm Assessment and Plan - Assessment and Plan (Free Text) Assessment: Right BKA dressing clean dry and intact -Mild strikethrough noted to dressing Plan: Continue local wound care using enzymatic debridement with Santyl Continue supportive medical care pain control Right lower stump WCX: Klebsiella <Raffy Mccormack - Last Filed: 11/08/16 13:30> Objective - Vital Signs/Intake and Output Vital Signs (last 24 hours): Temp Pulse Resp BP Pulse Ox 97.5 F L 115 H 18 102/63 100 11/08/16 07:20 11/08/16 07:20 11/08/16 07:20 11/08/16 07:20 11/08/16 07:20 - Medications Medications: Current Medications Acetaminophen (Tylenol 325mg Tab) 650 mg PO Q4 PRN PRN Reason: Fever >100.4 F Last Admin: 10/02/16 16:27 Dose: 650 mg Acetaminophen (Tylenol 325mg Tab) 650 mg PO Q4 PRN PRN Reason: Pain, moderate (4-7) Last Admin: 09/16/16 22:34 Dose: 650 mg Albuterol Sulfate (Albuterol 0.083% Inhal Barbie (2.5 Mg/3 Ml) Ud) 2.5 mg INH RQ4 PRN PRN Reason: Shortness of Breath Albuterol/Ipratropium (Duoneb 3 Mg/0.5 Mg (3 Ml) Ud) 3 ml INH RQ4 PRN PRN Reason: Shortness of Breath Apixaban (Eliquis) 5 mg PO BID [facility] PRN Reason: Protocol Last Admin: 11/08/16 09:21 Dose: 5 mg Aspirin (Ecotrin) 81 mg PO DAILY [facility] Last Admin: 11/08/16 09:22 Dose: 81 mg Atorvastatin Calcium (Lipitor) 40 mg PO DAILY [facility] Last Admin: 11/08/16 09:22 Dose: 40 mg Benzonatate (Tessalon Perles) 200 mg PO TID PRN PRN Reason: Cough Last Admin: 10/02/16 14:07 Dose: 200 mg Calcium Carbonate (Oscal) 500 mg PO BIDWM [facility] Last Admin: 11/08/16 09:21 Dose: 500 mg Cinacalcet (Sensipar) 30 mg PO DAILY [facility] Last Admin: 11/08/16 09:21 Dose: 30 mg Collagenase (Santyl) 1 applic TOP DAILY [facility] Last Admin: 11/08/16 09:21 Dose: 1 applic Diphenhydramine HCl (Benadryl) 25 mg PO Q6 PRN PRN Reason: Itching / Pruritus Epoetin Tha (Procrit) 20,000 unit IV MWF [facility] Last Admin: 11/06/16 09:10 Dose: 20,000 unit Ergocalciferol (Drisdol 50,000 Intl Units Cap) 1 cap PO WED [facility] Fluconazole (Diflucan) 100 mg PO DAILY [facility] Last Admin: 11/08/16 09:21 Dose: 100 mg Gabapentin (Neurontin) 300 mg PO TID [facility] Last Admin: 11/08/16 12:34 Dose: 300 mg Hydrocortisone (Anusol-Hc) 1 applic [place] BID PRN PRN Reason: Inflammation Hydromorphone HCl (Dilaudid) 1 mg IVP Q3H PRN PRN Reason: Pain, severe (8-10) Last Admin: 11/08/16 09:16 Dose: 1 mg Amikacin Sulfate 250 mg/ (Sodium Chloride) 101 mls @ 100.609 mls/hr IVPB MWF [facility] Last Admin: 11/06/16 12:40 Dose: 100.609 mls/hr Meropenem 500 mg/ Sodium (Chloride) 100 mls @ 100 mls/hr IVPB DAILY@0100 [facility] Last Admin: 11/08/16 01:07 Dose: 100 mls/hr Sodium Chloride (Sodium Chloride 0.9%) 1,000 mls @ 10 mls/hr IV .Q24H [facility] Last Admin: 11/07/16 18:05 Dose: 10 mls/hr Piperacillin Sod/Tazobactam (Sod 2.25 gm/ Sodium Chloride) 100 mls @ 100 mls/ hr IVPB Q12@0900,2100 [facility] Last Admin: 11/08/16 09:29 Dose: 100 mls/hr Insulin Detemir (Levemir) 26 units SC HS [facility] Last Admin: 11/07/16 22:43 Dose: 26 u Insulin Human Lispro (Humalog) 8 units SC AC [facility] Last Admin: 11/08/16 12:34 Dose: 8 units Lidocaine (Lidoderm) 1 ea TD DAILY [facility] Last Admin: 11/08/16 09:22 Dose: 1 ea Linezolid (Zyvox) 600 mg PO Q12 [facility] Last Admin: 11/08/16 09:21 Dose: 600 mg Nystatin (Nystop Topical Powder) 1 applic TOP BID [facility] Last Admin: 11/08/16 09:22 Dose: 1 applic Ondansetron HCl (Zofran Inj) 4 mg IVP Q6 PRN PRN Reason: Nausea/Vomiting Last Admin: 09/19/16 10:26 Dose: 4 mg Pantoprazole Sodium (Protonix Ec Tab) 40 mg PO DAILY [facility] Last Admin: 11/08/16 09:21 Dose: 40 mg Phenylephrine HCl (Dagoberto-Synephrine 0.5% Nasal [place]) 1 spry ALLAN Q4 PRN PRN Reason: Nasal congestion Sevelamer HCl (Renagel) 1,600 mg PO TID [facility] Last Admin: 11/08/16 12:34 Dose: 1,600 mg Topiramate (Topamax) 50 mg PO BID [facility] Last Admin: 11/08/16 09:23 Dose: 50 mg Vitamin B Complex/Vit C/Folic Acid (Nephro-Ajay) 1 tab PO DAILY [facility] Last Admin: 11/08/16 09:20 Dose: 1 tab - Labs Labs: 11/06/16 08:09 11/04/16 17:26 PT 17.6 Seconds (9.8-13.1) H 10/15/16 07:00 INR 1.5 (0.9-1.2) H 10/15/16 07:00 APTT 36.6 Seconds (25.6-37.1) 10/15/16 07:00 Assessment and Plan - Assessment and Plan (Free Text) Plan: Patient seen and examined. Dressing changed. 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 COntinue current care for the next few days. Santyl and daily dressing changes.
[2016-11-08] MEDS: Insulin Lispro (humaLOG) 100 Units/ml Inj SC SCH ×4 (08:32→19:00)
[2016-11-08] MEDS: Multivitamin Vitamin B Complex (Nephro-Vite) Tab PO SCH (09:20)
[2016-11-08] MEDS: Santyl Collagenase OINTMENT TOP SCH (09:21)
[2016-11-08] MEDS: Pantoprazole 40 mg EC Tab PO SCH (09:21)
[2016-11-08] MEDS: Lidocaine 5% Patch TD SCH (09:22)
--- NOTE | 2016-11-08 11:25 | CP.PCM.PN ---
Subjective - Date & Time of Evaluation Date of Evaluation: 11/08/16 Time of Evaluation: 11:23 - Subjective Subjective: Patient in bed she was sleeping Patient apparently given pain medication Hemodialysis about to start as scheduled No new event reported Objective - Vital Signs/Intake and Output Vital Signs (last 24 hours): Temp Pulse Resp BP Pulse Ox 97.5 F L 115 H 18 102/63 100 11/08/16 07:20 11/08/16 07:20 11/08/16 07:20 11/08/16 07:20 11/08/16 07:20 - Medications Medications: Current Medications Acetaminophen (Tylenol 325mg Tab) 650 mg PO Q4 PRN PRN Reason: Fever >100.4 F Last Admin: 10/02/16 16:27 Dose: 650 mg Acetaminophen (Tylenol 325mg Tab) 650 mg PO Q4 PRN PRN Reason: Pain, moderate (4-7) Last Admin: 09/16/16 22:34 Dose: 650 mg Albuterol Sulfate (Albuterol 0.083% Inhal Barbie (2.5 Mg/3 Ml) Ud) 2.5 mg INH RQ4 PRN PRN Reason: Shortness of Breath Albuterol/Ipratropium (Duoneb 3 Mg/0.5 Mg (3 Ml) Ud) 3 ml INH RQ4 PRN PRN Reason: Shortness of Breath Apixaban (Eliquis) 5 mg PO BID JASPER PRN Reason: Protocol Last Admin: 11/08/16 09:21 Dose: 5 mg Aspirin (Ecotrin) 81 mg PO DAILY [facility] Last Admin: 11/08/16 09:22 Dose: 81 mg Atorvastatin Calcium (Lipitor) 40 mg PO DAILY [facility] Last Admin: 11/08/16 09:22 Dose: 40 mg Benzonatate (Tessalon Perles) 200 mg PO TID PRN PRN Reason: Cough Last Admin: 10/02/16 14:07 Dose: 200 mg Calcium Carbonate (Oscal) 500 mg PO BIDWM [facility] Last Admin: 11/08/16 09:21 Dose: 500 mg Cinacalcet (Sensipar) 30 mg PO DAILY [facility] Last Admin: 11/08/16 09:21 Dose: 30 mg Collagenase (Santyl) 1 applic TOP DAILY [facility] Last Admin: 11/08/16 09:21 Dose: 1 applic Diphenhydramine HCl (Benadryl) 25 mg PO Q6 PRN PRN Reason: Itching / Pruritus Epoetin Tha (Procrit) 20,000 unit IV MWF [facility] Last Admin: 11/06/16 09:10 Dose: 20,000 unit Ergocalciferol (Drisdol 50,000 Intl Units Cap) 1 cap PO WED [facility] Fluconazole (Diflucan) 100 mg PO DAILY [facility] Last Admin: 11/08/16 09:21 Dose: 100 mg Gabapentin (Neurontin) 300 mg PO TID [facility] Last Admin: 11/08/16 09:22 Dose: 300 mg Hydrocortisone (Anusol-Hc) 1 applic [place] BID PRN PRN Reason: Inflammation Hydromorphone HCl (Dilaudid) 1 mg IVP Q3H PRN PRN Reason: Pain, severe (8-10) Last Admin: 11/08/16 09:16 Dose: 1 mg Amikacin Sulfate 250 mg/ (Sodium Chloride) 101 mls @ 100.609 mls[facility]hr [facility] Last Admin: 11/06/16 12:40 Dose: 100.609 mls/hr Meropenem 500 mg/ Sodium (Chloride) 100 mls @ 100 mls/hr IVPB DAILY@0100 [facility] Last Admin: 11/08/16 01:07 Dose: 100 mls/hr Sodium Chloride (Sodium Chloride 0.9%) 1,000 mls @ 10 mls/hr IV .Q24H [facility] Last Admin: 11/07/16 18:05 Dose: 10 mls/hr Piperacillin Sod/Tazobactam (Sod 2.25 gm/ Sodium Chloride) 100 mls @ 100 mls/ hr IVPB Q12@0900,2100 [facility] Last Admin: 11/08/16 09:29 Dose: 100 mls/hr Insulin Detemir (Levemir) 26 units SC HS [facility] Last Admin: 11/07/16 22:43 Dose: 26 u Insulin Human Lispro (Humalog) 8 units SC AC [facility] Last Admin: 11/08/16 08:32 Dose: 8 units Lidocaine (Lidoderm) 1 ea TD DAILY [facility] Last Admin: 11/08/16 09:22 Dose: 1 ea Linezolid (Zyvox) 600 mg PO Q12 [facility] Last Admin: 11/08/16 09:21 Dose: 600 mg Nystatin (Nystop Topical Powder) 1 applic TOP BID [facility] Last Admin: 11/08/16 09:22 Dose: 1 applic Ondansetron HCl (Zofran Inj) 4 mg IVP Q6 PRN PRN Reason: Nausea/Vomiting Last Admin: 09/19/16 10:26 Dose: 4 mg Pantoprazole Sodium (Protonix Ec Tab) 40 mg PO DAILY [facility] Last Admin: 11/08/16 09:21 Dose: 40 mg Phenylephrine HCl (Dagoberto-Synephrine 0.5% Nasal [place]) 1 spry ALLAN Q4 PRN PRN Reason: Nasal congestion Sevelamer HCl (Renagel) 1,600 mg PO TID [facility] Last Admin: 11/08/16 09:20 Dose: 1,600 mg Topiramate (Topamax) 50 mg PO BID [facility] Last Admin: 11/08/16 09:23 Dose: 50 mg Vitamin B Complex/Vit C/Folic Acid (Nephro-Ajay) 1 tab PO DAILY [facility] Last Admin: 11/08/16 09:20 Dose: 1 tab - Labs Labs: 11/06/16 08:09 11/04/16 17:26 PT 17.6 Seconds (9.8-13.1) H 10/15/16 07:00 INR 1.5 (0.9-1.2) H 10/15/16 07:00 APTT 36.6 Seconds (25.6-37.1) 10/15/16 07:00 - Constitutional Appears: No Acute Distress - ENT Exam ENT Exam: Mucous Membranes Moist - Respiratory Exam Respiratory Exam: absent: Chest Wall Tenderness - GI/Abdominal Exam GI & Abdominal Exam: Soft. absent: Guarding - Extremities Exam Extremities Exam: absent: Calf Tenderness - Back Exam Back Exam: absent: CVA tenderness (L), CVA tenderness (R) - Neurological Exam Neurological Exam: Alert Assessment and Plan (1) ESRD (end stage renal disease) Assessment & Plan: Patient to receive hemodialysis shortly With ultrafiltration down 2500 only Because she developed hypotension last time by the end of the treatment. Labs reviewed CBC acceptable And chemistry were noted Potassium bath 2 mEq Patient stable Continue as per primary team with supportive treatment out of bed in the chair antibiotics. Status: Chronic (2) Cellulitis of leg Status: Chronic
--- NOTE | 2016-11-08 14:12 | CP.PCM.PN ---
Subjective - Date & Time of Evaluation Date of Evaluation: 11/08/16 Time of Evaluation: 14:10 - Subjective Subjective: Patient is having hemodialysis now, with bp 130/80 and pulse 115. No problems. Note by Dr. Guadarrama appreciated. Discussed with Dr. Mccormack (see his note of today). Will continue current care as wound is slowly healing with exception of one small area. To be re-evaluated in a few days. DM controlled on new regimen. No coagulation problems - on Eliquis and aspirin. No seizures. Objective - Vital Signs/Intake and Output Vital Signs (last 24 hours): Temp Pulse Resp BP Pulse Ox 97.5 F L 115 H 18 102/63 100 11/08/16 07:20 11/08/16 07:20 11/08/16 07:20 11/08/16 07:20 11/08/16 07:20 - Medications Medications: Current Medications Acetaminophen (Tylenol 325mg Tab) 650 mg PO Q4 PRN PRN Reason: Fever >100.4 F Last Admin: 10/02/16 16:27 Dose: 650 mg Acetaminophen (Tylenol 325mg Tab) 650 mg PO Q4 PRN PRN Reason: Pain, moderate (4-7) Last Admin: 09/16/16 22:34 Dose: 650 mg Albuterol Sulfate (Albuterol 0.083% Inhal Barbie (2.5 Mg/3 Ml) Ud) 2.5 mg INH RQ4 PRN PRN Reason: Shortness of Breath Albuterol/Ipratropium (Duoneb 3 Mg/0.5 Mg (3 Ml) Ud) 3 ml INH RQ4 PRN PRN Reason: Shortness of Breath Apixaban (Eliquis) 5 mg PO BID JASPER PRN Reason: Protocol Last Admin: 11/08/16 09:21 Dose: 5 mg Aspirin (Ecotrin) 81 mg PO DAILY [facility] Last Admin: 11/08/16 09:22 Dose: 81 mg Atorvastatin Calcium (Lipitor) 40 mg PO DAILY [facility] Last Admin: 11/08/16 09:22 Dose: 40 mg Benzonatate (Tessalon Perles) 200 mg PO TID PRN PRN Reason: Cough Last Admin: 10/02/16 14:07 Dose: 200 mg [facility]cium [facility] (Oscal) [facility] [place] [place] Last Admin: 11/08/16 09:21 Dose: 500 mg Cinacalcet (Sensipar) 30 mg PO DAILY [facility] Last Admin: 11/08/16 09:21 Dose: 30 mg Collagenase (Santyl) 1 applic TOP DAILY [facility] Last Admin: 11/08/16 09:21 Dose: 1 applic Diphenhydramine HCl (Benadryl) 25 mg PO Q6 PRN PRN Reason: Itching / Pruritus Epoetin Tha (Procrit) 20,000 unit IV [facility] Last Admin: 11/06/16 09:10 Dose: 20,000 unit Ergocalciferol (Drisdol 50,000 Intl Units Cap) 1 cap PO WED [facility] Fluconazole (Diflucan) 100 mg PO DAILY [facility] Last Admin: 11/08/16 09:21 Dose: 100 mg Gabapentin (Neurontin) 300 mg PO TID [facility] Last Admin: 11/08/16 12:34 Dose: 300 mg Hydrocortisone (Anusol-Hc) 1 applic [place] BID PRN PRN Reason: Inflammation Hydromorphone HCl (Dilaudid) 1 mg IVP Q3H PRN PRN Reason: Pain, severe (8-10) Last Admin: 11/08/16 09:16 Dose: 1 mg Amikacin Sulfate 250 mg/ (Sodium Chloride) 101 mls @ 100.609 mls/hr IVPB [facility] Last Admin: 11/06/16 12:40 Dose: 100.609 mls/hr Meropenem 500 mg/ Sodium (Chloride) 100 mls @ 100 mls/hr IVPB DAILY@0100 [facility] Last Admin: 11/08/16 01:07 Dose: 100 mls/hr Sodium Chloride (Sodium Chloride 0.9%) 1,000 mls @ 10 mls/hr IV .Q24H [facility] Last Admin: 11/07/16 18:05 Dose: 10 mls/hr Piperacillin Sod/Tazobactam (Sod 2.25 gm/ Sodium Chloride) 100 mls @ 100 mls/ hr IVPB Q12@0900,2100 [facility] Last Admin: 11/08/16 09:29 Dose: 100 mls/hr Insulin Detemir (Levemir) 26 units SC HS [facility] Last Admin: 11/07/16 22:43 Dose: 26 u Insulin Human Lispro (Humalog) 8 units SC AC [facility] Last Admin: 11/08/16 12:34 Dose: 8 units Lidocaine (Lidoderm) 1 ea TD DAILY [facility] Last Admin: 11/08/16 09:22 Dose: 1 ea Linezolid (Zyvox) 600 mg PO Q12 [facility] Last Admin: 11/08/16 09:21 Dose: 600 mg Nystatin (Nystop Topical Powder) 1 applic TOP BID [facility] Last Admin: 11/08/16 09:22 Dose: 1 applic Ondansetron HCl (Zofran Inj) 4 mg IVP Q6 PRN PRN Reason: Nausea/Vomiting Last Admin: 09/19/16 10:26 Dose: 4 mg Pantoprazole Sodium (Protonix Ec Tab) 40 mg PO DAILY [facility] Last Admin: 11/08/16 09:21 Dose: 40 mg Phenylephrine HCl (Dagoberto-Synephrine 0.5% Nasal [place]) 1 spry ALLAN Q4 PRN PRN Reason: Nasal congestion Sevelamer HCl (Renagel) 1,600 mg PO TID [facility] Last Admin: 11/08/16 12:34 Dose: 1,600 mg Topiramate (Topamax) 50 mg PO BID [facility] Last Admin: 11/08/16 09:23 Dose: 50 mg Vitamin B Complex/Vit C/Folic Acid (Nephro-Ajay) 1 tab PO DAILY [facility] Last Admin: 11/08/16 09:20 Dose: 1 tab - Labs Labs: 11/06/16 08:09 11/04/16 17:26 PT 17.6 Seconds (9.8-13.1) H 10/15/16 07:00 INR 1.5 (0.9-1.2) H 10/15/16 07:00 APTT 36.6 Seconds (25.6-37.1) 10/15/16 07:00 - Constitutional Appears: No Acute Distress - Head Exam Head Exam: NORMAL INSPECTION - ENT Exam ENT Exam: Mucous Membranes Moist - Neck Exam Neck Exam: Normal Inspection - Respiratory Exam Respiratory Exam: Clear to Ausculation Bilateral, NORMAL BREATHING PATTERN - Cardiovascular Exam Cardiovascular Exam: REGULAR RHYTHM, +S1, +S2 - GI/Abdominal Exam GI & Abdominal Exam: Soft - Extremities Exam Additional comments: Right BK incision dressing dry, intact. Knee immobilizer on. - Back Exam Back Exam: NORMAL INSPECTION - Skin Skin Exam: Dry, Intact, Normal Color, Warm Assessment and Plan (1) Status post below knee amputation of right lower extremity Status: Acute (2) ESRD (end stage renal disease) on dialysis Status: Chronic (3) DM type 2 (diabetes mellitus, type 2) Status: Chronic (4) Coagulopathy Status: Chronic (5) Peripheral arterial occlusive disease Status: Chronic - Assessment and Plan (Free Text) Assessment: SEE SUBJECTIVE. CONTINUE PRESENT TX AND RX.
[2016-11-08] MEDS: Epoetin Alfa 20000 UNIT/ML Inj IV SCH (15:25)
[2016-11-08] MEDS: Sodium Chloride 0.9% 1,000 ML IV SCH (19:01)
[2016-11-08] MEDS: Insulin Detemir 100 Units/ml Inj SC SCH (21:28)
--- NOTE | 2016-11-09 00:05 | CP.PCM.PN ---
Subjective - Date & Time of Evaluation Date of Evaluation: 11/08/16 Time of Evaluation: 21:15 - Subjective Subjective: She received Hemodialysis. Her Vitamin D level is only 21. She was restarted on Po Vitamin D 50,000 Units /W and Oscal 500 mg BID Patient is not in distress, her wound looks clean. There is no reported seizures. She is on Po Topamax 50 mg BID. Objective - Vital Signs/Intake and Output Vital Signs (last 24 hours): Temp Pulse Resp BP Pulse Ox 98.6 F 51 L 18 115/75 98 11/08/16 16:21 11/08/16 16:21 11/08/16 16:21 11/08/16 16:21 11/08/16 16:21 - Medications Medications: Current Medications Acetaminophen (Tylenol 325mg Tab) 650 mg PO Q4 PRN PRN Reason: Fever >100.4 F Last Admin: 10/02/16 16:27 Dose: 650 mg Acetaminophen (Tylenol 325mg Tab) 650 mg PO Q4 PRN PRN Reason: Pain, moderate (4-7) Last Admin: 09/16/16 22:34 Dose: 650 mg Albuterol Sulfate (Albuterol 0.083% Inhal Barbie (2.5 Mg/3 Ml) Ud) 2.5 mg INH RQ4 PRN PRN Reason: Shortness of Breath Albuterol/Ipratropium (Duoneb 3 Mg/0.5 Mg (3 Ml) Ud) 3 ml INH RQ4 PRN PRN Reason: Shortness of Breath Apixaban (Eliquis) 5 mg PO BID [facility] PRN Reason: Protocol Last Admin: 11/08/16 19:00 Dose: 5 mg Aspirin (Ecotrin) 81 mg PO DAILY [facility] Last Admin: 11/08/16 09:22 Dose: 81 mg Atorvastatin Calcium (Lipitor) 40 mg PO DAILY [facility] Last Admin: 11/08/16 09:22 Dose: 40 mg Benzonatate (Tessalon Perles) 200 mg PO TID PRN PRN Reason: Cough Last Admin: 10/02/16 14:07 Dose: 200 mg Calcium Carbonate (Oscal) 500 mg PO BIDWM [facility] Last Admin: 11/08/16 19:00 Dose: 500 mg Cinacalcet (Sensipar) 30 mg PO DAILY [facility] Last Admin: 11/08/16 09:21 Dose: 30 mg Collagenase (Santyl) 1 applic TOP DAILY [facility] Last Admin: 11/08/16 09:21 Dose: 1 applic Diphenhydramine HCl (Benadryl) 25 mg PO Q6 PRN PRN Reason: Itching / Pruritus Epoetin Tha (Procrit) 20,000 unit IV MWF [facility] Ergocalciferol (Drisdol 50,000 Intl Units Cap) 1 cap PO WED [facility] Fluconazole (Diflucan) 100 mg PO DAILY [facility] Last Admin: 11/08/16 09:21 Dose: 100 mg Gabapentin (Neurontin) 300 mg PO TID [facility] Last Admin: 11/08/16 19:01 Dose: 300 mg Hydrocortisone (Anusol-Hc) 1 applic [place] BID PRN PRN Reason: Inflammation Hydromorphone HCl (Dilaudid) 1 mg IVP Q3H PRN PRN Reason: Pain, severe (8-10) Last Admin: 11/08/16 20:34 Dose: 1 mg Amikacin Sulfate 250 mg/ (Sodium Chloride) 101 mls @ 100.609 mls/hr IVPB MWF [facility] Last Admin: 11/08/16 18:59 Dose: 100.609 mls/hr Meropenem 500 mg/ Sodium (Chloride) 100 mls @ 100 mls/hr IVPB DAILY@0100 [facility] Last Admin: 11/08/16 01:07 Dose: 100 mls/hr Sodium Chloride (Sodium Chloride 0.9%) 1,000 mls @ 10 mls/hr IV .Q24H [facility] Last Admin: 11/08/16 19:01 Dose: 10 mls/hr Piperacillin Sod/Tazobactam (Sod 2.25 gm/ Sodium Chloride) 100 mls @ 100 mls/ hr IVPB Q12@0900,2100 [facility] Last Admin: 11/08/16 21:30 Dose: 100 mls/hr Insulin Detemir (Levemir) 26 units SC HS [facility] Last Admin: 11/08/16 21:28 Dose: 26 u Insulin Human Lispro (Humalog) 8 units SC AC [facility] Last Admin: 11/08/16 19:00 Dose: 8 units Lidocaine (Lidoderm) 1 ea TD DAILY [facility] Last Admin: 11/08/16 09:22 Dose: 1 ea Linezolid (Zyvox) 600 mg PO Q12 [facility] Last Admin: 11/08/16 21:30 Dose: 600 mg Nystatin (Nystop Topical Powder) 1 applic TOP BID [facility] Last Admin: 11/08/16 19:00 Dose: 1 applic Ondansetron HCl (Zofran Inj) 4 mg IVP Q6 PRN PRN Reason: Nausea/Vomiting Last Admin: 09/19/16 10:26 Dose: 4 mg Pantoprazole Sodium (Protonix Ec Tab) 40 mg PO DAILY [facility] Last Admin: 11/08/16 09:21 Dose: 40 mg Phenylephrine HCl (Dagoberto-Synephrine 0.5% Nasal [place]) 1 spry ALLAN Q4 PRN PRN Reason: Nasal congestion Sevelamer HCl (Renagel) 1,600 mg PO TID [facility] Last Admin: 11/08/16 18:59 Dose: 1,600 mg Topiramate (Topamax) 50 mg PO BID [facility] Last Admin: 11/08/16 19:00 Dose: 50 mg Vitamin B Complex/Vit C/Folic Acid (Nephro-Ajay) 1 tab PO DAILY [facility] Last Admin: 11/08/16 09:20 Dose: 1 tab - Labs Labs: 11/06/16 08:09 11/04/16 17:26 PT 17.6 Seconds (9.8-13.1) H 10/15/16 07:00 INR 1.5 (0.9-1.2) H 10/15/16 07:00 APTT 36.6 Seconds (25.6-37.1) 10/15/16 07:00 Assessment and Plan (1) Diabetes Status: Chronic (2) ESRD (end stage renal disease) Status: Chronic (3) Cellulitis of leg Status: Chronic (4) Hyperlipidemia Status: Chronic (5) Back pain Status: Acute (6) Bacteremia due to Gram-negative bacteria Status: Acute (7) Diabetes mellitus type 2 with peripheral artery disease Status: Acute (8) PVD (peripheral vascular disease) Status: Acute (9) Osteomyelitis of right foot Status: Acute (10) Fungal infection right foot Status: Acute
[2016-11-09] MEDS: Meropenem 500 MG in Sodium Chloride 0.9% 100 ML IVPB SCH (00:56)
[2016-11-09] MEDS: Insulin Lispro (humaLOG) 100 Units/ml Inj SC SCH (08:57)
[2016-11-09] MEDS: Lidocaine 5% Patch TD SCH (08:59)
[2016-11-09] MEDS: Multivitamin Vitamin B Complex (Nephro-Vite) Tab PO SCH (08:59)
[2016-11-09] MEDS ORDERED: Piperacillin/Tazobact 2.25 gm Inj ONE (09:00)
[2016-11-09] MEDS ORDERED: Insulin Lispro (humaLOG) 100 Units/ml Inj ONE (09:00)
[2016-11-09] MEDS ORDERED: Pantoprazole 40 mg EC Tab PO ONE (09:00)
[2016-11-09] MEDS ORDERED: Hydrocortisone 2.5% (Rectal) CREAM ONE (09:00)
[2016-11-09] MEDS ORDERED: Lidocaine 5% Patch TD ONE (09:00)
[2016-11-09] MEDS ORDERED: Multivitamin Vitamin B Complex (Nephro-Vite) Tab ONE (09:00)
[2016-11-09] MEDS ORDERED: Nystatin Ointment ONE (09:00)
[2016-11-09] MEDS ORDERED: Linezolid 600 mg in D5W 300 ml IVPB ONE (09:00)
[2016-11-09] MEDS ORDERED: HYDROmorphone 0.5 mg/0.5 ml ISec ONE (09:00)
[2016-11-09] MEDS: Santyl Collagenase OINTMENT TOP SCH (09:03)
[2016-11-09] MEDS: Pantoprazole 40 mg EC Tab PO SCH (09:04)
[2016-11-09] MEDS: Insulin Detemir 100 Units/ml Inj SC SCH (21:39)
--- NOTE | 2016-11-09 22:36 | CP.PCM.PN ---
Subjective - Date & Time of Evaluation Date of Evaluation: 11/09/16 Time of Evaluation: 16:30 - Subjective Subjective: Follow up Nephrology Consultation Note Assessment/Plan: End stage renal disease on hemodialysis (MWF) via permacath: Will plan for dialysis on friday. No Acute need today. continue with Nephrovite 1 tab/day. Anemia: PRBC as needed. On MARTHA as Epogen 20,000 with HD. last Hb 9.8 TSAT 73% and ferritin >1000. Hyperphosphatemia: continue with current meds as renagel 1600 TID. repeat phos level 5.0 Secondary hyperparathyroidism with Vit D Deficiency: continue with sensipar 30 mg/day. Last PTH level 423. Vit D 21. supplement with ergo 50,000 bi-monthly x 8 doses Hypertension controlled: BP mostly on low side Glycemic control, Dialysis consistent diet Further work up/management as per primary team. 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 Dose meds/antibiotics for ESRD status. Avoid fleets enema/magnesium based laxatives. Thanks for allowing me to participate in care of your patient. Will follow patient with you. Please call if any Qs Dr Hernan Andino Office: [phone] Subjective: Noted events overnight. Denies chest pain, palpitation, shortness of breath. during this hospitalization she had Rt BKA, vaginal D&C, endometrial ablation. Physical Examination: General Appearance: Comfortable, in no acute respiratory distress, co- operative. obese Vitals reviewed and noted as below Lungs: Normal respiratory rate/effort. Breath sounds bilateral equal and clear Heart: Normal rate. s1s2 normal. No rub or gallop. Extremities: s/p Rt BKA, hx of left BKA. Neurological: Patient is alert, awake and oriented to person, place and time. No focal deficit. Strength bilateral appropriate and equal Skin: Warm and dry. Normal turgor. No rash. Palpitation: Normal elasticity for age Abdomen: Abdomen is soft. Bowel sounds +. There is no abdominal tenderness, no guarding/rigidity or organomegaly. she is obese : kidney or bladder not palpable Access: permacath Labs/imaging reviewed. Past medical history, past surgical history, family history, social history, allergy reviewed Objective - Vital Signs/Intake and Output Vital Signs (last 24 hours): Temp Pulse Resp BP Pulse Ox 97.4 F L 118 H 20 114/46 L 94 L 11/09/16 08:34 11/09/16 08:34 11/09/16 08:34 11/09/16 08:34 11/09/16 08:34 - Medications Medications: Current Medications Acetaminophen (Tylenol 325mg Tab) 650 mg PO Q4 PRN PRN Reason: Fever >100.4 F Last Admin: 10/02/16 16:27 Dose: 650 mg Acetaminophen (Tylenol 325mg Tab) 650 mg PO Q4 PRN PRN Reason: Pain, moderate (4-7) Last Admin: 09/16/16 22:34 Dose: 650 mg Albuterol Sulfate (Albuterol 0.083% Inhal Barbie (2.5 Mg/3 Ml) Ud) 2.5 mg INH RQ4 PRN PRN Reason: Shortness of Breath Albuterol/Ipratropium (Duoneb 3 Mg/0.5 Mg (3 Ml) Ud) 3 ml INH RQ4 PRN PRN Reason: Shortness of Breath Aspirin (Ecotrin) 81 mg PO DAILY [facility] Last Admin: 11/09/16 09:04 Dose: 81 mg Atorvastatin Calcium (Lipitor) 40 mg PO DAILY [facility] Last Admin: 11/09/16 09:02 Dose: 40 mg Benzonatate (Tessalon Perles) 200 mg PO TID PRN PRN Reason: Cough Last Admin: 10/02/16 14:07 Dose: 200 mg Calcium Carbonate (Oscal) 500 mg PO BIDWM [facility] Last Admin: 11/09/16 09:02 Dose: 500 mg Cinacalcet (Sensipar) 30 mg PO DAILY [facility] Last Admin: 11/09/16 09:00 Dose: 30 mg Collagenase (Santyl) 1 applic TOP DAILY [facility] Last Admin: 11/09/16 09:03 Dose: 1 applic Diphenhydramine HCl (Benadryl) 25 mg PO Q6 PRN PRN Reason: Itching / Pruritus Epoetin Tha (Procrit) 20,000 unit IV MWF [facility] Ergocalciferol (Drisdol 50,000 Intl Units Cap) 1 cap PO WED [facility] Fluconazole (Diflucan) 100 mg PO DAILY [facility] Last Admin: 11/09/16 09:01 Dose: 100 mg Gabapentin (Neurontin) 300 mg PO TID [facility] Last Admin: 11/09/16 09:02 Dose: 300 mg Hydrocortisone (Anusol-Hc) 1 applic [place] BID PRN PRN Reason: Inflammation Hydromorphone HCl (Dilaudid) 1 mg IVP Q3H PRN PRN Reason: Pain, severe (8-10) Last Admin: 11/09/16 22:07 Dose: 1 mg Amikacin Sulfate 250 mg/ (Sodium Chloride) 101 mls @ 100.609 mls/hr IVPB MWF [facility] Last Admin: 11/08/16 18:59 Dose: 100.609 mls/hr Meropenem 500 mg/ Sodium (Chloride) 100 mls @ 100 mls/hr IVPB DAILY@0100 [facility] Last Admin: 11/09/16 00:56 Dose: 100 mls/hr Sodium Chloride (Sodium Chloride 0.9%) 1,000 mls @ 10 mls/hr IV .Q24H [facility] Last Admin: 11/08/16 19:01 Dose: 10 mls/hr Piperacillin Sod/Tazobactam (Sod 2.25 gm/ Sodium Chloride) 100 mls @ 100 mls/ hr IVPB Q12@0900,2100 [facility] Last Admin: 11/09/16 21:38 Dose: 100 mls/hr Insulin Detemir (Levemir) 26 units SC HS [facility] Last Admin: 11/09/16 21:39 Dose: 26 units Insulin Human Lispro (Humalog) 8 units SC AC [facility] Last Admin: 11/09/16 08:57 Dose: 8 units Lidocaine (Lidoderm) 1 ea TD DAILY [facility] Last Admin: 11/09/16 08:59 Dose: 1 ea Linezolid (Zyvox) 600 mg PO Q12 [facility] Last Admin: 11/09/16 21:38 Dose: 600 mg Nystatin (Nystop Topical Powder) 1 applic TOP BID [facility] Last Admin: 11/09/16 09:06 Dose: 1 applic Ondansetron HCl (Zofran Inj) 4 mg IVP Q6 PRN PRN Reason: Nausea/Vomiting Last Admin: 09/19/16 10:26 Dose: 4 mg Pantoprazole Sodium (Protonix Ec Tab) 40 mg PO DAILY [facility] Last Admin: 11/09/16 09:04 Dose: 40 mg Phenylephrine HCl (Dagoberto-Synephrine 0.5% Nasal [place]) 1 spry ALLAN Q4 PRN PRN Reason: Nasal congestion Sevelamer HCl (Renagel) 1,600 mg PO TID [facility] Last Admin: 11/09/16 09:01 Dose: 1,600 mg Topiramate (Topamax) 50 mg PO BID [facility] Last Admin: 11/09/16 09:03 Dose: 50 mg Vitamin B Complex/Vit C/Folic Acid (Nephro-Ajay) 1 tab PO DAILY [facility] Last Admin: 11/09/16 08:59 Dose: 1 tab - Labs Labs: 11/06/16 08:09 11/04/16 17:26 PT 17.6 Seconds (9.8-13.1) H 10/15/16 07:00 INR 1.5 (0.9-1.2) H 10/15/16 07:00 APTT 36.6 Seconds (25.6-37.1) 10/15/16 07:00
[2016-11-10] MEDS: Meropenem 500 MG in Sodium Chloride 0.9% 100 ML IVPB SCH (00:02)
--- NOTE | 2016-11-10 00:47 | CP.PCM.PN ---
Subjective - Date & Time of Evaluation Date of Evaluation: 11/09/16 Time of Evaluation: 20:30 - Subjective Subjective: Not in distress, she is interacting well, awake alert, oriented, talking, expressing her needs, not in pain. Patient is receiving her Hemodialysis as planned on ,,. She is not suffering from seizures. Her Vitamin D 50.000 / W is resumed after having a low vitamin D level of only 21. Her Oscal 500mg BID is also resumed. She is on Topamax 50 mg BID. Her Wound is clean. Objective - Vital Signs/Intake and Output Vital Signs (last 24 hours): Temp Pulse Resp BP Pulse Ox 97.4 F L 118 H 20 114/46 L 94 L 11/09/16 08:34 11/09/16 08:34 11/09/16 08:34 11/09/16 08:34 11/09/16 08:34 - Medications Medications: Current Medications Acetaminophen (Tylenol 325mg Tab) 650 mg PO Q4 PRN PRN Reason: Fever >100.4 F Last Admin: 10/02/16 16:27 Dose: 650 mg Acetaminophen (Tylenol 325mg Tab) 650 mg PO Q4 PRN PRN Reason: Pain, moderate (4-7) Last Admin: 09/16/16 22:34 Dose: 650 mg Albuterol Sulfate (Albuterol 0.083% Inhal Barbie (2.5 Mg/3 Ml) Ud) 2.5 mg INH RQ4 PRN PRN Reason: Shortness of Breath Albuterol/Ipratropium (Duoneb 3 Mg/0.5 Mg (3 Ml) Ud) 3 ml INH RQ4 PRN PRN Reason: Shortness of Breath Aspirin (Ecotrin) 81 mg PO DAILY [facility] Last Admin: 11/09/16 09:04 Dose: 81 mg Atorvastatin Calcium (Lipitor) 40 mg PO DAILY [facility] Last Admin: 11/09/16 09:02 Dose: 40 mg Benzonatate (Tessalon Perles) 200 mg PO TID PRN PRN Reason: Cough Last Admin: 10/02/16 14:07 Dose: 200 mg Calcium Carbonate (Oscal) 500 mg PO BIDWM [facility] Last Admin: 11/09/16 09:02 Dose: 500 mg Cinacalcet (Sensipar) 30 mg PO DAILY [facility] Last Admin: 11/09/16 09:00 Dose: 30 mg Collagenase (Santyl) 1 applic TOP DAILY [facility] Last Admin: 11/09/16 09:03 Dose: 1 applic Diphenhydramine HCl (Benadryl) 25 mg PO Q6 PRN PRN Reason: Itching / Pruritus Epoetin Tha (Procrit) [facility] Ergocalciferol (Drisdol 50,000 Intl Units Cap) 1 cap PO WED [facility] Fluconazole (Diflucan) 100 mg PO DAILY [facility] Last Admin: 11/09/16 09:01 Dose: 100 mg Gabapentin (Neurontin) 300 mg PO TID [facility] Last Admin: 11/09/16 09:02 Dose: 300 mg Hydrocortisone (Anusol-Hc) 1 applic [place] BID PRN PRN Reason: Inflammation Hydromorphone HCl (Dilaudid) 1 mg IVP Q3H PRN PRN Reason: Pain, severe (8-10) Last Admin: 11/09/16 22:07 Dose: 1 mg Amikacin Sulfate 250 mg/ (Sodium Chloride) 101 mls @ 100.609 mls/hr IVPB MWF [facility] Last Admin: 11/08/16 18:59 Dose: 100.609 mls/hr Meropenem 500 mg/ Sodium (Chloride) 100 mls @ 100 mls/hr IVPB DAILY@0100 [facility] Last Admin: 11/10/16 00:02 Dose: 100 mls/hr Sodium Chloride (Sodium Chloride 0.9%) 1,000 mls @ 10 mls/hr IV .Q24H [facility] Last Admin: 11/08/16 19:01 Dose: 10 mls/hr Piperacillin Sod/Tazobactam (Sod 2.25 gm/ Sodium Chloride) 100 mls @ 100 mls/ hr IVPB Q12@0900,2100 [facility] Last Admin: 11/09/16 21:38 Dose: 100 mls/hr Insulin Detemir (Levemir) 26 units SC HS [facility] Last Admin: 11/09/16 21:39 Dose: 26 units Insulin Human Lispro (Humalog) 8 units SC AC [facility] Last Admin: 11/09/16 08:57 Dose: 8 units Lidocaine (Lidoderm) 1 ea TD DAILY [facility] Last Admin: 11/09/16 08:59 Dose: 1 ea Linezolid (Zyvox) 600 mg PO Q12 [facility] Last Admin: 11/09/16 21:38 Dose: 600 mg Nystatin (Nystop Topical Powder) 1 applic TOP BID [facility] Last Admin: 11/09/16 09:06 Dose: 1 applic Ondansetron HCl (Zofran Inj) 4 mg IVP Q6 PRN PRN Reason: Nausea/Vomiting Last Admin: 09/19/16 10:26 Dose: 4 mg Pantoprazole Sodium (Protonix Ec Tab) 40 mg PO DAILY [facility] Last Admin: 11/09/16 09:04 Dose: 40 mg Phenylephrine HCl (Dagoberto-Synephrine 0.5% Nasal [place]) 1 spry ALLAN Q4 PRN PRN Reason: Nasal congestion Sevelamer HCl (Renagel) 1,600 mg PO TID [facility] Last Admin: 11/09/16 09:01 Dose: 1,600 mg Topiramate (Topamax) 50 mg PO BID [facility] Last Admin: 11/09/16 09:03 Dose: 50 mg Vitamin B Complex/Vit C/Folic Acid (Nephro-Ajay) 1 tab PO DAILY [facility] Last Admin: 11/09/16 08:59 Dose: 1 tab - Labs Labs: 11/06/16 08:09 11/04/16 17:26 PT 17.6 Seconds (9.8-13.1) H 10/15/16 07:00 INR 1.5 (0.9-1.2) H 10/15/16 07:00 APTT 36.6 Seconds (25.6-37.1) 10/15/16 07:00 Assessment and Plan (1) Diabetes Status: Chronic (2) ESRD (end stage renal disease) Status: Chronic (3) Cellulitis of leg Status: Chronic (4) Hyperlipidemia Status: Chronic (5) Back pain Status: Acute (6) Bacteremia due to Gram-negative bacteria Status: Acute (7) Diabetes mellitus type 2 with peripheral artery disease Status: Acute (8) PVD (peripheral vascular disease) Status: Acute (9) Osteomyelitis of right foot Status: Acute (10) Fungal infection right foot Status: Acute
[2016-11-10] MEDS: Insulin Lispro (humaLOG) 100 Units/ml Inj SC SCH ×4 (08:42→17:19)
[2016-11-10] MEDS: Sodium Chloride 0.9% 1,000 ML IV SCH ×2 (08:44→17:19)
[2016-11-10] MEDS: Santyl Collagenase OINTMENT TOP SCH (08:45)
[2016-11-10] MEDS: Lidocaine 5% Patch TD SCH (08:46)
[2016-11-10] MEDS: Multivitamin Vitamin B Complex (Nephro-Vite) Tab PO SCH (08:46)
[2016-11-10] MEDS: Pantoprazole 40 mg EC Tab PO SCH (08:46)
--- NOTE | 2016-11-10 13:00 | CP.PCM.PN ---
Subjective - Date & Time of Evaluation Date of Evaluation: 11/10/16 Time of Evaluation: 12:57 - Subjective Subjective: [employer] EHR was down yesterday - see paper chart for yesterday's progress note. Patient is comfortabe, sitting in recliner. No fevers or cough or dyspnea. No pain. Dilaudid was decreased to 0.mg IV q3h prn as of yesterday but since [employer] was down, this change may not have gone into effect. I am having trouble renewing Dilaudid on [employer] today. She continues on 3 iv and 2 po antibiotics. I have not seen any more info regarding the multidrug resistant Klebsiella sensitivities. Daily wound dressings with Santyl being applied to R knee and right lateral area of right BK incision. Making progress acc to [place] RN. Objective - Vital Signs/Intake and Output Vital Signs (last 24 hours): Temp Pulse Resp BP Pulse Ox 97.4 F L 116 H 20 131/78 100 11/10/16 08:22 11/10/16 08:22 11/10/16 08:22 11/10/16 08:22 11/10/16 08:22 - Medications Medications: Current Medications Acetaminophen (Tylenol 325mg Tab) 650 mg PO Q4 PRN PRN Reason: Fever >100.4 F Last Admin: 10/02/16 16:27 Dose: 650 mg Acetaminophen (Tylenol 325mg Tab) 650 mg PO Q4 PRN PRN Reason: Pain, moderate (4-7) Last Admin: 09/16/16 22:34 Dose: 650 mg Albuterol Sulfate (Albuterol 0.083% Inhal Barbie (2.5 Mg/3 Ml) Ud) 2.5 mg INH RQ4 PRN PRN Reason: Shortness of Breath Albuterol/Ipratropium (Duoneb 3 Mg/0.5 Mg (3 Ml) Ud) 3 ml INH RQ4 PRN PRN Reason: Shortness of Breath Aspirin (Ecotrin) 81 mg PO DAILY [facility] Last Admin: 11/10/16 08:46 Dose: 81 mg Atorvastatin Calcium (Lipitor) 40 mg PO DAILY [facility] Last Admin: 11/10/16 08:47 Dose: 40 mg Benzonatate (Tessalon Perles) 200 mg PO TID PRN PRN Reason: Cough Last Admin: 10/02/16 14:07 Dose: 200 mg Calcium Carbonate (Oscal) 500 mg PO BIDWM [facility] Last Admin: 11/10/16 08:45 Dose: 500 mg Cinacalcet (Sensipar) 30 mg PO DAILY [facility] Last Admin: 11/10/16 08:45 Dose: 30 mg Collagenase (Santyl) 1 applic TOP DAILY [facility] Last Admin: 11/10/16 08:45 Dose: 1 applic Diphenhydramine HCl (Benadryl) 25 mg PO Q6 PRN PRN Reason: Itching / Pruritus Epoetin Tha (Procrit) 20,000 unit IV [facility] Ergocalciferol (Drisdol 50,000 Intl Units Cap) 1 cap PO WED [facility] Fluconazole (Diflucan) 100 mg PO DAILY [facility] Last Admin: 11/10/16 08:46 Dose: 100 mg Gabapentin (Neurontin) 300 mg PO TID [facility] Last Admin: 11/10/16 08:45 Dose: 300 mg Hydrocortisone (Anusol-Hc) 1 applic [place] BID PRN PRN Reason: Inflammation Hydromorphone HCl (Dilaudid) 1 mg IVP Q3H PRN PRN Reason: Pain, severe (8-10) Last Admin: 11/10/16 09:01 Dose: 1 mg Amikacin Sulfate 250 mg/ (Sodium Chloride) 101 mls @ 100.609 mls/hr IVPB [facility] Last Admin: 11/08/16 18:59 Dose: 100.609 mls/hr Meropenem 500 mg/ Sodium (Chloride) 100 mls @ 100 mls/hr IVPB DAILY@0100 [facility] Last Admin: 11/10/16 00:02 Dose: 100 mls/hr Sodium Chloride (Sodium Chloride 0.9%) 1,000 mls @ 10 mls/hr IV .Q24H [facility] Last Admin: 11/10/16 08:44 Dose: Not Given Piperacillin Sod/Tazobactam (Sod 2.25 gm/ Sodium Chloride) 100 mls @ 100 mls/ hr IVPB Q12@0900,2100 [facility] Last Admin: 11/10/16 08:41 Dose: 100 mls/hr Insulin Detemir (Levemir) 26 units SC HS [facility] Last Admin: 11/09/16 21:39 Dose: 26 units Insulin Human Lispro (Humalog) 8 units SC AC [facility] Last Admin: 11/10/16 08:43 Dose: Not Given Lidocaine (Lidoderm) 1 ea TD DAILY [facility] Last Admin: 11/10/16 08:46 Dose: 1 ea Linezolid (Zyvox) 600 mg PO Q12 [facility] Last Admin: 11/10/16 08:45 Dose: 600 mg Nystatin (Nystop Topical Powder) 1 applic TOP BID [facility] Last Admin: 11/10/16 08:47 Dose: 1 applic Ondansetron HCl (Zofran Inj) 4 mg IVP Q6 PRN PRN Reason: Nausea/Vomiting Last Admin: 09/19/16 10:26 Dose: 4 mg Pantoprazole Sodium (Protonix Ec Tab) 40 mg PO DAILY [facility] Last Admin: 11/10/16 08:46 Dose: 40 mg Phenylephrine HCl (Dagoberto-Synephrine 0.5% Nasal [place]) 1 spry ALLAN Q4 PRN PRN Reason: Nasal congestion Sevelamer HCl (Renagel) 1,600 mg PO TID [facility] Last Admin: 11/10/16 08:44 Dose: Not Given Topiramate (Topamax) 50 mg PO BID [facility] Last Admin: 11/10/16 08:48 Dose: 50 mg Vitamin B Complex/Vit C/Folic Acid (Nephro-Ajay) 1 tab PO DAILY [facility] Last Admin: 11/10/16 08:46 Dose: 1 tab - Labs Labs: 11/06/16 08:09 11/04/16 17:26 PT 17.6 Seconds (9.8-13.1) H 10/15/16 07:00 INR 1.5 (0.9-1.2) H 10/15/16 07:00 APTT 36.6 Seconds (25.6-37.1) 10/15/16 07:00 - Constitutional Appears: No Acute Distress - Head Exam Head Exam: NORMAL INSPECTION - ENT Exam ENT Exam: Mucous Membranes Moist - Neck Exam Neck Exam: Normal Inspection - Respiratory Exam Respiratory Exam: Clear to Ausculation Bilateral, NORMAL BREATHING PATTERN - Cardiovascular Exam Cardiovascular Exam: REGULAR RHYTHM, +S1, +S2 - GI/Abdominal Exam GI & Abdominal Exam: Soft - Extremities Exam Additional comments: Dressing dry and intact R BK area and knee immobilizer in place. Dressing intact R patella. - Back Exam Back Exam: NORMAL INSPECTION - Neurological Exam Neurological Exam: Alert, Awake - Psychiatric Exam Psychiatric exam: Normal Affect, Normal Mood - Skin Skin Exam: Dry, Intact, Normal Color, Warm Assessment and Plan (1) Status post below knee amputation of right lower extremity Status: Acute (2) ESRD (end stage renal disease) on dialysis Status: Chronic (3) DM type 2 (diabetes mellitus, type 2) Status: Chronic (4) Coagulopathy Status: Chronic (5) Peripheral arterial occlusive disease Status: Chronic - Assessment and Plan (Free Text) Plan: Overall doing well. We need to see a bit more healing of R BK site and to better define that positive Klebsiella culture. We must await decision by Dr. Mccormack regarding possible need for further debridement before we can transfer patient to acute rehab. However, rehab is proceeding at the bedside, and patient is making nice progress with this. All current meds to continue.
[2016-11-10] MEDS: HYDROmorphone 0.5 mg/0.5 ml ISec IVP PRN ×3 (13:23→21:51)
--- NOTE | 2016-11-10 15:15 | CP.PCM.PN ---
Subjective - Date & Time of Evaluation Date of Evaluation: 11/10/16 Time of Evaluation: 15:15 - Subjective Subjective: Follow up Nephrology Consultation Note Assessment/Plan: End stage renal disease on hemodialysis (MWF) via permacath: Will plan for dialysis on friday. No Acute need today. continue with Nephrovite 1 tab/day. Anemia: PRBC as needed. On MARTHA as Epogen 20,000 with HD. last Hb 9.8 TSAT 73% and ferritin >1000. Hyperphosphatemia: continue with current meds as renagel 1600 TID. repeat phos level Secondary hyperparathyroidism with Vit D Deficiency: continue with sensipar 30 mg/day. Last PTH level 423. Vit D 21. supplement with ergo 50,000 bi-monthly x 8 doses Hypertension controlled: BP mostly on low side Glycemic control, Dialysis consistent diet Further work up/management as per primary team. 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 Dose meds/antibiotics for ESRD status. Avoid fleets enema/magnesium based laxatives. Thanks for allowing me to participate in care of your patient. Will follow patient with you. Please call if any Qs Dr Hernan Andino Office: [phone] Subjective: Noted events overnight. Denies chest pain, palpitation, shortness of breath. during this hospitalization she had Rt BKA, vaginal D&C, endometrial ablation. Physical Examination: General Appearance: Comfortable, in no acute respiratory distress, co- operative. obese Vitals reviewed and noted as below Lungs: Normal respiratory rate/effort. Breath sounds bilateral equal and clear Heart: Normal rate. s1s2 normal. No rub or gallop. Extremities: s/p Rt BKA, hx of left BKA. Neurological: Patient is alert, awake and oriented to person, place and time. No focal deficit. Strength bilateral appropriate and equal Skin: Warm and dry. Normal turgor. No rash. Palpitation: Normal elasticity for age Abdomen: Abdomen is soft. Bowel sounds +. There is no abdominal tenderness, no guarding/rigidity or organomegaly. she is obese : kidney or bladder not palpable Access: permacath Labs/imaging reviewed. Past medical history, past surgical history, family history, social history, allergy reviewed Objective - Vital Signs/Intake and Output Vital Signs (last 24 hours): Temp Pulse Resp BP Pulse Ox 97.4 F L 116 H 20 131/78 100 11/10/16 08:22 11/10/16 08:22 11/10/16 08:22 11/10/16 08:22 11/10/16 08:22 - Medications Medications: Current Medications Acetaminophen (Tylenol 325mg Tab) 650 mg PO Q4 PRN PRN Reason: Fever >100.4 F Last Admin: 10/02/16 16:27 Dose: 650 mg Acetaminophen (Tylenol 325mg Tab) 650 mg PO Q4 PRN PRN Reason: Pain, moderate (4-7) Last Admin: 09/16/16 22:34 Dose: 650 mg Albuterol Sulfate (Albuterol 0.083% Inhal Barbie (2.5 Mg/3 Ml) Ud) 2.5 mg INH RQ4 PRN PRN Reason: Shortness of Breath Albuterol/Ipratropium (Duoneb 3 Mg/0.5 Mg (3 Ml) Ud) 3 ml INH RQ4 PRN PRN Reason: Shortness of Breath Aspirin (Ecotrin) 81 mg PO DAILY [facility] Last Admin: 11/10/16 08:46 Dose: 81 mg Atorvastatin Calcium (Lipitor) 40 mg PO DAILY [facility] Last Admin: 11/10/16 08:47 Dose: 40 mg Benzonatate (Tessalon Perles) 200 mg PO TID PRN PRN Reason: Cough Last Admin: 10/02/16 14:07 Dose: 200 mg Calcium Carbonate (Oscal) 500 mg PO BIDWM [facility] Last Admin: 11/10/16 08:45 Dose: 500 mg Cinacalcet (Sensipar) 30 mg PO DAILY [facility] Last Admin: 11/10/16 08:45 Dose: 30 mg Collagenase (Santyl) 1 applic TOP DAILY [facility] Last Admin: 11/10/16 08:45 Dose: 1 applic Diphenhydramine HCl (Benadryl) 25 mg PO Q6 PRN PRN Reason: Itching / Pruritus Epoetin Tha (Procrit) 20,000 unit IV MWF [facility] Ergocalciferol (Drisdol 50,000 Intl Units Cap) 1 cap PO WED [facility] Fluconazole (Diflucan) 100 mg PO DAILY [facility] Last Admin: 11/10/16 08:46 Dose: 100 mg Gabapentin (Neurontin) 300 mg PO TID [facility] Last Admin: 11/10/16 13:17 Dose: 300 mg Hydrocortisone (Anusol-Hc) 1 applic [place] BID PRN PRN Reason: Inflammation Hydromorphone HCl (Dilaudid) 0.5 mg IVP Q3H PRN PRN Reason: Pain, severe (8-10) Last Admin: 11/10/16 13:23 Dose: 0.5 mg Amikacin Sulfate 250 mg/ (Sodium Chloride) 101 mls @ 100.609 mls/hr IVPB MWF [facility] Last Admin: 11/08/16 18:59 Dose: 100.609 mls/hr Meropenem 500 mg/ Sodium (Chloride) 100 mls @ 100 mls/hr IVPB DAILY@0100 [facility] Last Admin: 11/10/16 00:02 Dose: 100 mls/hr Sodium Chloride (Sodium Chloride 0.9%) 1,000 mls @ 10 mls/hr IV .Q24H [facility] Last Admin: 11/10/16 08:44 Dose: Not Given Piperacillin Sod/Tazobactam (Sod 2.25 gm/ Sodium Chloride) 100 mls @ 100 mls/ hr IVPB Q12@0900,2100 [facility] Last Admin: 11/10/16 08:41 Dose: 100 mls/hr Insulin Detemir (Levemir) 26 units SC HS [facility] Last Admin: 11/09/16 21:39 Dose: 26 units Insulin Human Lispro (Humalog) 8 units SC AC [facility] Last Admin: 11/10/16 13:16 Dose: 8 units Lidocaine (Lidoderm) 1 ea TD DAILY [facility] Last Admin: 11/10/16 08:46 Dose: 1 ea Linezolid (Zyvox) 600 mg PO Q12 [facility] Last Admin: 11/10/16 08:45 Dose: 600 mg Nystatin (Nystop Topical Powder) 1 applic TOP BID [facility] Last Admin: 11/10/16 08:47 Dose: 1 applic Ondansetron HCl (Zofran Inj) 4 mg IVP Q6 PRN PRN Reason: Nausea/Vomiting Last Admin: 09/19/16 10:26 Dose: 4 mg Pantoprazole Sodium (Protonix Ec Tab) 40 mg PO DAILY [facility] Last Admin: 11/10/16 08:46 Dose: 40 mg Phenylephrine HCl (Dagoberto-Synephrine 0.5% Nasal [place]) 1 spry ALLAN Q4 PRN PRN Reason: Nasal congestion Sevelamer HCl (Renagel) 1,600 mg PO TID [facility] Last Admin: 11/10/16 13:17 Dose: 1,600 mg Topiramate (Topamax) 50 mg PO BID [facility] Last Admin: 11/10/16 08:48 Dose: 50 mg Vitamin B Complex/Vit C/Folic Acid (Nephro-Ajay) 1 tab PO DAILY [facility] Last Admin: 11/10/16 08:46 Dose: 1 tab - Labs Labs: 11/06/16 08:09 11/04/16 17:26 PT 17.6 Seconds (9.8-13.1) H 10/15/16 07:00 INR 1.5 (0.9-1.2) H 10/15/16 07:00 APTT 36.6 Seconds (25.6-37.1) 10/15/16 07:00
[2016-11-10] MEDS: Insulin Detemir 100 Units/ml Inj SC SCH (21:51)
--- NOTE | 2016-11-11 00:01 | CP.PCM.PN ---
Subjective - Date & Time of Evaluation Date of Evaluation: 11/10/16 Time of Evaluation: 20:45 - Subjective Subjective: Narcotics have been reduced, Dilaudid dose is less. She will receive her next Hemodialysis in AM, according to the schedule of M,W ,F. She is stable and her Right side BKA wound is healing appropriately and she is having a dressing there. There is no seizures and she is on Topamax 50 mg BID. She is on Vitamin D 50,000 U/week and is receiving Sensipar injections. Objective - Vital Signs/Intake and Output Vital Signs (last 24 hours): Temp Pulse Resp BP Pulse Ox 98.3 F 111 H 20 127/51 L 97 11/10/16 16:12 11/10/16 16:12 11/10/16 16:12 11/10/16 16:12 11/10/16 16:12 - Medications Medications: Current Medications Acetaminophen (Tylenol 325mg Tab) 650 mg PO Q4 PRN PRN Reason: Fever >100.4 F Last Admin: 10/02/16 16:27 Dose: 650 mg Acetaminophen (Tylenol 325mg Tab) 650 mg PO Q4 PRN PRN Reason: Pain, moderate (4-7) Last Admin: 09/16/16 22:34 Dose: 650 mg Albuterol Sulfate (Albuterol 0.083% Inhal [place]bie (2.5 Mg/3 Ml) Ud) 2.5 mg INH RQ4 PRN PRN Reason: Shortness of Breath Albuterol/Ipratropium (Duoneb 3 Mg/0.5 Mg (3 Ml) Ud) 3 ml INH RQ4 PRN PRN Reason: Shortness of Breath Aspirin (Ecotrin) 81 mg PO DAILY [facility] Last Admin: 11/10/16 08:46 Dose: 81 mg Atorvastatin Calcium (Lipitor) 40 mg PO DAILY [facility] Last Admin: 11/10/16 08:47 Dose: 40 mg Benzonatate (Tessalon Perles) 200 mg PO TID PRN PRN Reason: Cough Last Admin: 10/02/16 14:07 Dose: 200 mg Calcium Carbonate (Oscal) 500 mg PO BIDWM [facility] Last Admin: 11/10/16 17:18 Dose: 500 mg Cinacalcet (Sensipar) 30 mg PO DAILY [facility] Last Admin: 11/10/16 08:45 Dose: 30 mg Collagenase (Santyl) 1 applic TOP DAILY [facility] Last Admin: 11/10/16 08:45 Dose: 1 applic Diphenhydramine HCl (Benadryl) 25 mg PO Q6 PRN PRN Reason: Itching / Pruritus Epoetin [facility]a ([facility]) [facility] (Drisdol 50,000 Intl Units Cap) 1 cap PO WED [facility] Fluconazole (Diflucan) 100 mg PO DAILY [facility] Last Admin: 11/10/16 08:46 Dose: 100 mg Gabapentin (Neurontin) 300 mg PO TID [facility] Last Admin: 11/10/16 17:18 Dose: 300 mg Hydrocortisone (Anusol-Hc) 1 applic [place] BID PRN PRN Reason: Inflammation Hydromorphone HCl (Dilaudid) 0.5 mg IVP Q3H PRN PRN Reason: Pain, severe (8-10) Last Admin: 11/10/16 21:51 Dose: 0.5 mg Amikacin Sulfate 250 mg/ (Sodium Chloride) 101 mls @ 100.609 mls/hr IVPB MWF [facility] Last Admin: 11/08/16 18:59 Dose: 100.609 mls/hr Meropenem 500 mg/ Sodium (Chloride) 100 mls @ 100 mls/hr IVPB DAILY@0100 [facility] Last Admin: 11/10/16 00:02 Dose: 100 mls/hr Sodium Chloride (Sodium Chloride 0.9%) 1,000 mls @ 10 mls/hr IV .Q24H [facility] Last Admin: 11/10/16 17:19 Dose: Not Given Piperacillin Sod/Tazobactam (Sod 2.25 gm/ Sodium Chloride) 100 mls @ 100 mls/ hr IVPB Q12@0900,2100 [facility] Last Admin: 11/10/16 20:01 Dose: 100 mls/hr Insulin Detemir (Levemir) 26 units SC HS [facility] Last Admin: 11/10/16 21:51 Dose: 26 units Insulin Human Lispro (Humalog) 8 units SC AC [facility] Last Admin: 11/10/16 17:19 Dose: 8 units Lidocaine (Lidoderm) 1 ea TD DAILY [facility] Last Admin: 11/10/16 08:46 Dose: 1 ea Linezolid (Zyvox) 600 mg PO Q12 [facility] Last Admin: 11/10/16 20:03 Dose: 600 mg Nystatin (Nystop Topical Powder) 1 applic TOP BID [facility] Last Admin: 11/10/16 17:18 Dose: 1 applic Ondansetron HCl (Zofran Inj) 4 mg IVP Q6 PRN PRN Reason: Nausea/Vomiting Last Admin: 09/19/16 10:26 Dose: 4 mg Pantoprazole Sodium (Protonix Ec Tab) 40 mg PO DAILY [facility] Last Admin: 11/10/16 08:46 Dose: 40 mg Phenylephrine HCl (Dagoberto-Synephrine 0.5% Nasal [place]) 1 spry ALLAN Q4 PRN PRN Reason: Nasal congestion Sevelamer HCl (Renagel) 1,600 mg PO TID [facility] Last Admin: 11/10/16 17:18 Dose: 1,600 mg Topiramate (Topamax) 50 mg PO BID [facility] Last Admin: 11/10/16 17:19 Dose: 50 mg Vitamin B Complex/Vit C/Folic Acid (Nephro-Ajay) 1 tab PO DAILY [facility] Last Admin: 11/10/16 08:46 Dose: 1 tab - Labs Labs: 11/06/16 08:09 11/04/16 17:26 PT 17.6 Seconds (9.8-13.1) H 10/15/16 07:00 INR 1.5 (0.9-1.2) H 10/15/16 07:00 APTT 36.6 Seconds (25.6-37.1) 10/15/16 07:00 Assessment and Plan (1) Diabetes Status: Chronic (2) ESRD (end stage renal disease) Status: Chronic (3) Cellulitis of leg Status: Chronic (4) Hyperlipidemia Status: Chronic (5) Back pain Status: Acute (6) Bacteremia due to Gram-negative bacteria Status: Acute (7) Diabetes mellitus type 2 with peripheral artery disease Status: Acute (8) PVD (peripheral vascular disease) Status: Acute (9) Osteomyelitis of right foot Status: Acute (10) Fungal infection right foot Status: Acute
[2016-11-11] MEDS: Meropenem 500 MG in Sodium Chloride 0.9% 100 ML IVPB SCH (00:11)
[2016-11-11] MEDS: HYDROmorphone 0.5 mg/0.5 ml ISec IVP PRN ×3 (04:19→13:23)
[2016-11-11] MEDS: Albuterol-Ipratrop 3 mg / 0.5 (3 ml) UD INH PRN (07:39)
--- NOTE | 2016-11-11 08:02 | CP.PCM.PN ---
Subjective - Date & Time of Evaluation Date of Evaluation: 11/11/16 Time of Evaluation: 08:01 - Subjective Subjective: Surgery Progress note. Dr. Mccormack Pt seen and examined at bedside. No acute events overnight. Denies any F/C/N/V/ D. No SOB. No new complaints. Objective - Vital Signs/Intake and Output Vital Signs (last 24 hours): Temp Pulse Resp BP Pulse Ox 97.8 F 88 18 98/60 L 98 11/11/16 00:01 11/11/16 00:01 11/11/16 00:01 11/11/16 00:01 11/11/16 00:01 - Medications Medications: Current Medications Acetaminophen (Tylenol 325mg Tab) 650 mg PO Q4 PRN PRN Reason: Fever >100.4 F Last Admin: 10/02/16 16:27 Dose: 650 mg Acetaminophen (Tylenol 325mg Tab) 650 mg PO Q4 PRN PRN Reason: Pain, moderate (4-7) Last Admin: 09/16/16 22:34 Dose: 650 mg Albuterol Sulfate (Albuterol 0.083% Inhal Barbie (2.5 Mg/3 Ml) Ud) 2.5 mg INH RQ4 PRN PRN Reason: Shortness of Breath Albuterol/Ipratropium (Duoneb 3 Mg/0.5 Mg (3 Ml) Ud) 3 ml INH RQ4 PRN PRN Reason: Shortness of Breath Last Admin: 11/11/16 07:39 Dose: 3 ml Aspirin (Ecotrin) 81 mg PO DAILY [facility] Last Admin: 11/10/16 08:46 Dose: 81 mg Atorvastatin Calcium (Lipitor) 40 mg PO DAILY [facility] Last Admin: 11/10/16 08:47 Dose: 40 mg Benzonatate (Tessalon Perles) 200 mg PO TID PRN PRN Reason: Cough Last Admin: 10/02/16 14:07 Dose: 200 mg Calcium Carbonate (Oscal) 500 mg PO BIDWM [facility] Last Admin: 11/10/16 17:18 Dose: 500 mg Cinacalcet (Sensipar) 30 mg PO DAILY [facility] Last Admin: 11/10/16 08:45 Dose: 30 mg Collagenase (Santyl) 1 applic TOP DAILY [facility] Last Admin: 11/10/16 08:45 Dose: 1 applic Diphenhydramine HCl (Benadryl) 25 mg PO Q6 PRN PRN Reason: Itching / Pruritus Epoetin Tha (Procrit) 20,000 unit IV MWF [facility] Ergocalciferol (Drisdol 50,000 Intl Units Cap) 1 cap PO WED [facility] Fluconazole (Diflucan) 100 mg PO DAILY [facility] Last Admin: 11/10/16 08:46 Dose: 100 mg Gabapentin (Neurontin) 300 mg PO TID [facility] Last Admin: 11/10/16 17:18 Dose: 300 mg Hydrocortisone (Anusol-Hc) 1 applic [place] BID PRN PRN Reason: Inflammation Hydromorphone HCl (Dilaudid) 0.5 mg IVP Q3H PRN PRN Reason: Pain, severe (8-10) Last Admin: 11/11/16 04:19 Dose: 0.5 mg Amikacin Sulfate 250 mg/ (Sodium Chloride) 101 mls @ 100.609 mls/hr [facility] Last Admin: 11/08/16 18:59 Dose: 100.609 mls/hr Meropenem 500 mg/ Sodium (Chloride) 100 mls @ 100 mls/hr IVPB DAILY@0100 [facility] Last Admin: 11/11/16 00:11 Dose: 100 mls/hr Sodium Chloride (Sodium Chloride 0.9%) 1,000 mls @ 10 mls/hr IV .Q24H [facility] Last Admin: 11/10/16 17:19 Dose: Not Given Piperacillin Sod/Tazobactam (Sod 2.25 gm/ Sodium Chloride) 100 mls @ 100 mls/ hr IVPB Q12@0900,2100 [facility] Last Admin: 11/10/16 20:01 Dose: 100 mls/hr Insulin Detemir (Levemir) 26 units SC HS [facility] Last Admin: 11/10/16 21:51 Dose: 26 units Insulin Human Lispro (Humalog) 8 units SC AC [facility] Last Admin: 11/10/16 17:19 Dose: 8 units Lidocaine (Lidoderm) 1 ea TD DAILY [facility] Last Admin: 11/10/16 08:46 Dose: 1 ea Linezolid (Zyvox) 600 mg PO Q12 [facility] Last Admin: 11/10/16 20:03 Dose: 600 mg Nystatin (Nystop Topical Powder) 1 applic TOP BID [facility] Last Admin: 11/10/16 17:18 Dose: 1 applic Ondansetron HCl (Zofran Inj) 4 mg IVP Q6 PRN PRN Reason: Nausea/Vomiting Last Admin: 09/19/16 10:26 Dose: 4 mg Pantoprazole Sodium (Protonix Ec Tab) 40 mg PO DAILY [facility] Last Admin: 11/10/16 08:46 Dose: 40 mg Phenylephrine HCl (Dagoberto-Synephrine 0.5% Nasal [place]) 1 spry ALLAN Q4 PRN PRN Reason: Nasal congestion Sevelamer HCl (Renagel) 1,600 mg PO TID [facility] Last Admin: 11/10/16 17:18 Dose: 1,600 mg Topiramate (Topamax) 50 mg PO BID [facility] Last Admin: 11/10/16 17:19 Dose: 50 mg Vitamin B Complex/Vit C/Folic Acid (Nephro-Ajay) 1 tab PO DAILY [facility] Last Admin: 11/10/16 08:46 Dose: 1 tab - Labs Labs: 11/06/16 08:09 11/04/16 17:26 PT 17.6 Seconds (9.8-13.1) H 10/15/16 07:00 INR 1.5 (0.9-1.2) H 10/15/16 07:00 APTT 36.6 Seconds (25.6-37.1) 10/15/16 07:00 - Constitutional Appears: No Acute Distress, Older Than Stated Age, Chronically Ill - Head Exam Head Exam: ATRAUMATIC, NORMAL INSPECTION, NORMOCEPHALIC - Eye Exam Eye Exam: EOMI - Respiratory Exam Respiratory Exam: NORMAL BREATHING PATTERN - GI/Abdominal Exam GI & Abdominal Exam: Soft. absent: Tenderness - Extremities Exam Additional comments: Right Lower Extremity Dressing clean and dry. - Neurological Exam Neurological Exam: Alert, Awake Assessment and Plan - Assessment and Plan (Free Text) Assessment: 46yo F with PMHx of HTN, ESRD, PVD. General Surgery following s/p Right BKA on . POD 41. - 11/02: Wound Cx Right Stump - Multi drug resistant Klebsiella - Continue dressing changes as per wound care team, continue chemical debridement. - Continue Medical management - Pain management Discussed case with Dr. Mccormack. Jacques Amado PGY1 surgery pager: [phone]
[2016-11-11] MEDS: Santyl Collagenase OINTMENT TOP SCH (08:31)
[2016-11-11] MEDS: Multivitamin Vitamin B Complex (Nephro-Vite) Tab PO SCH (08:31)
[2016-11-11] MEDS: Pantoprazole 40 mg EC Tab PO SCH (08:31)
[2016-11-11] MEDS: Lidocaine 5% Patch TD SCH (08:32)
[2016-11-11] MEDS: Insulin Lispro (humaLOG) 100 Units/ml Inj SC SCH ×4 (08:32→20:24)
[2016-11-11] MEDS ORDERED: EPOETIN ALFA 10,000 UNIT/ML ML IV SCH (09:00)
--- NOTE | 2016-11-11 10:39 | CP.PCM.PN ---
Subjective - Date & Time of Evaluation Date of Evaluation: 11/11/16 Time of Evaluation: 10:36 - Subjective Subjective: No new events reported Patient scheduled to have dialysis today about to start Order was given Physical exam Chest no rales Heart no rubs Abdomen soft Impression and plan End stage renal disease on hemodialysis (MWF) via permacath:. continue with Nephrovite 1 tab/day. Anemia: PRBC as needed. On MARTHA as Epogen 20,000 with HD. last Hb 9.8 TSAT 73% and ferritin >1000. Hyperphosphatemia: continue with current meds as renagel 1600 TID. repeat phos level 5.0 Secondary hyperparathyroidism with Vit D Deficiency: continue with sensipar 30 mg/day. Last PTH level 423. Vit D 21. supplement with ergo 50,000 bi-monthly x 8 doses Hypertension controlled dialysis ultrafiltration Sodium bath 138 Potassium bath 2 mEq Bicarbonate bath 34 Objective - Vital Signs/Intake and Output Vital Signs (last 24 hours): Temp Pulse Resp BP Pulse Ox 98.4 F 111 H 19 105/65 96 11/11/16 08:06 11/11/16 08:06 11/11/16 08:06 11/11/16 08:06 11/11/16 08:06 - Medications Medications: Current Medications Acetaminophen (Tylenol 325mg Tab) 650 mg PO Q4 PRN PRN Reason: Fever >100.4 F Last Admin: 10/02/16 16:27 Dose: 650 mg Acetaminophen (Tylenol 325mg Tab) 650 mg PO Q4 PRN PRN Reason: Pain, moderate (4-7) Last Admin: 09/16/16 22:34 Dose: 650 mg Albuterol Sulfate (Albuterol 0.083% Inhal Barbie (2.5 Mg/3 Ml) Ud) 2.5 mg INH RQ4 PRN PRN Reason: Shortness of Breath Albuterol/Ipratropium (Duoneb 3 Mg/0.5 Mg (3 Ml) Ud) 3 ml INH RQ4 PRN PRN Reason: Shortness of Breath Last Admin: 11/11/16 07:39 Dose: 3 ml Aspirin (Ecotrin) 81 mg PO DAILY [facility] Last Admin: 11/11/16 08:32 Dose: 81 mg Atorvastatin Calcium (Lipitor) 40 mg PO DAILY [facility] Last Admin: 11/11/16 08:31 Dose: 40 mg Benzonatate (Tessalon Perles) 200 mg PO TID PRN PRN Reason: Cough Last Admin: 10/02/16 14:07 Dose: 200 mg Calcium Carbonate (Oscal) 500 mg PO BIDWM [facility] Last Admin: 11/11/16 08:33 Dose: 500 mg Cinacalcet (Sensipar) 30 mg PO DAILY [facility] Last Admin: 11/11/16 08:33 Dose: 30 mg Collagenase (Santyl) 1 applic TOP DAILY [facility] Last Admin: 11/11/16 08:31 Dose: 1 applic Diphenhydramine HCl (Benadryl) 25 mg PO Q6 PRN PRN Reason: Itching / Pruritus Epoetin Tha (Procrit) 20,000 unit IV [facility] Ergocalciferol (Drisdol 50,000 Intl Units Cap) 1 cap PO WED [facility] Fluconazole (Diflucan) 100 mg PO DAILY [facility] Last Admin: 11/11/16 08:31 Dose: 100 mg Gabapentin (Neurontin) 300 mg PO TID [facility] Last Admin: 11/11/16 08:31 Dose: 300 mg Hydrocortisone (Anusol-Hc) 1 applic [place] BID PRN PRN Reason: Inflammation Hydromorphone HCl (Dilaudid) 0.5 mg IVP Q3H PRN PRN Reason: Pain, severe (8-10) Last Admin: 11/11/16 08:29 Dose: 0.5 mg Amikacin Sulfate 250 mg/ (Sodium Chloride) 101 mls @ 100.609 mls/hr [facility] Last Admin: 11/11/16 08:30 Dose: 100.609 mls/hr Meropenem 500 mg/ Sodium (Chloride) 100 mls @ 100 mls/hr IVPB DAILY@0100 [facility] Last Admin: 11/11/16 00:11 Dose: 100 mls/hr Sodium Chloride (Sodium Chloride 0.9%) 1,000 mls @ 10 mls/hr IV .Q24H [facility] Last Admin: 11/10/16 17:19 Dose: Not Given Piperacillin Sod/Tazobactam (Sod 2.25 gm/ Sodium Chloride) 100 mls @ 100 mls/ hr IVPB Q12@0900,2100 [facility] Last Admin: 11/11/16 08:30 Dose: 100 mls/hr Insulin Detemir (Levemir) 26 units SC HS [facility] Last Admin: 11/10/16 21:51 Dose: 26 units Insulin Human Lispro (Humalog) 8 units SC AC [facility] Last Admin: 11/11/16 08:32 Dose: 8 units Lidocaine (Lidoderm) 1 ea TD DAILY [facility] Last Admin: 11/11/16 08:32 Dose: 1 ea Linezolid (Zyvox) 600 mg PO Q12 [facility] Last Admin: 11/11/16 08:31 Dose: 600 mg Nystatin (Nystop Topical Powder) 1 applic TOP BID [facility] Last Admin: 11/11/16 08:33 Dose: 1 applic Ondansetron HCl (Zofran Inj) 4 mg IVP Q6 PRN PRN Reason: Nausea/Vomiting Last Admin: 09/19/16 10:26 Dose: 4 mg Pantoprazole Sodium (Protonix Ec Tab) 40 mg PO DAILY [facility] Last Admin: 11/11/16 08:31 Dose: 40 mg Phenylephrine HCl (Dagoberto-Synephrine 0.5% Nasal [place]) 1 spry ALLAN Q4 PRN PRN Reason: Nasal congestion Sevelamer HCl (Renagel) 1,600 mg PO TID [facility] Last Admin: 11/11/16 08:31 Dose: 1,600 mg Topiramate (Topamax) 50 mg PO BID [facility] Last Admin: 11/11/16 08:34 Dose: 50 mg Vitamin B Complex/Vit C/Folic Acid (Nephro-Ajay) 1 tab PO DAILY [facility] Last Admin: 11/11/16 08:31 Dose: 1 tab - Labs Labs: 11/06/16 08:09 11/04/16 17:26 PT 17.6 Seconds (9.8-13.1) H 10/15/16 07:00 INR 1.5 (0.9-1.2) H 10/15/16 07:00 APTT 36.6 Seconds (25.6-37.1) 10/15/16 07:00 Assessment and Plan (1) ESRD (end stage renal disease) Status: Chronic (2) Cellulitis of leg Status: Chronic
[2016-11-11] MEDS: Sodium Chloride 0.9% 1,000 ML IV SCH (17:29)
--- NOTE | 2016-11-11 17:32 | CP.PCM.PN ---
Objective - Vital Signs/Intake and Output Vital Signs (last 24 hours): Temp Pulse Resp BP Pulse Ox 97.4 F L 119 H 18 163/76 H 97 11/11/16 15:59 11/11/16 15:59 11/11/16 15:59 11/11/16 15:59 11/11/16 15:59 - Medications Medications: Current Medications Acetaminophen (Tylenol 325mg Tab) 650 mg PO Q4 PRN PRN Reason: Fever >100.4 F Last Admin: 10/02/16 16:27 Dose: 650 mg Acetaminophen (Tylenol 325mg Tab) 650 mg PO Q4 PRN PRN Reason: Pain, moderate (4-7) Last Admin: 09/16/16 22:34 Dose: 650 mg Albuterol Sulfate (Albuterol 0.083% Inhal [place] (2.5 Mg/3 Ml) Ud) 2.5 mg INH RQ4 PRN PRN Reason: Shortness of Breath Albuterol/Ipratropium (Duoneb 3 Mg/0.5 Mg (3 Ml) Ud) 3 ml INH RQ4 PRN PRN Reason: Shortness of Breath Last Admin: 11/11/16 07:39 Dose: 3 ml Aspirin (Ecotrin) 81 mg PO DAILY [facility] Last Admin: 11/11/16 08:32 Dose: 81 mg Atorvastatin Calcium (Lipitor) 40 mg PO DAILY [facility] Last Admin: 11/11/16 08:31 Dose: 40 mg Benzonatate (Tessalon Perles) 200 mg PO TID PRN PRN Reason: Cough Last Admin: 10/02/16 14:07 Dose: 200 mg Calcium Carbonate (Oscal) 500 mg PO BIDWM [facility] Last Admin: 11/11/16 17:28 Dose: 500 mg Cinacalcet (Sensipar) 30 mg PO DAILY [facility] Last Admin: 11/11/16 08:33 Dose: 30 mg Collagenase (Santyl) 1 applic TOP DAILY [facility] Last Admin: 11/11/16 08:31 Dose: 1 applic Diphenhydramine HCl (Benadryl) 25 mg PO Q6 PRN PRN Reason: Itching / Pruritus Epoetin Tha (Procrit) 20,000 unit IV MWF [facility] Last Admin: 11/11/16 14:16 Dose: 20,000 unit Ergocalciferol (Drisdol 50,000 Intl Units Cap) 1 cap PO WED [facility] Fluconazole (Diflucan) 100 mg PO DAILY [facility] Last Admin: 11/11/16 08:31 Dose: 100 mg Gabapentin (Neurontin) 300 mg PO TID [facility] Last Admin: 11/11/16 17:28 Dose: 300 mg Hydrocortisone (Anusol-Hc) 1 applic [place] BID PRN PRN Reason: Inflammation Hydromorphone HCl (Dilaudid) 1 mg IVP Q3H PRN PRN Reason: Pain, severe (8-10) Amikacin Sulfate 250 mg/ (Sodium Chloride) 101 mls @ 100.609 mls/hr IVPB MWF [facility] Last Admin: 11/11/16 08:30 Dose: 100.609 mls/hr Meropenem 500 mg/ Sodium (Chloride) 100 mls @ 100 mls/hr IVPB DAILY@0100 [facility] Last Admin: 11/11/16 00:11 Dose: 100 mls/hr Sodium Chloride (Sodium Chloride 0.9%) 1,000 mls @ 10 mls/hr IV .Q24H [facility] Last Admin: 11/11/16 17:29 Dose: Not Given Piperacillin Sod/Tazobactam (Sod 2.25 gm/ Sodium Chloride) 100 mls @ 100 mls/ hr IVPB Q12@0900,2100 [facility] Last Admin: 11/11/16 08:30 Dose: 100 mls/hr Insulin Detemir (Levemir) 26 units SC HS [facility] Last Admin: 11/10/16 21:51 Dose: 26 units Insulin Human Lispro (Humalog) 8 units SC AC [facility] Last Admin: 11/11/16 13:19 Dose: 8 units Lidocaine (Lidoderm) 1 ea TD DAILY [facility] Last Admin: 11/11/16 08:32 Dose: 1 ea Linezolid (Zyvox) 600 mg PO Q12 [facility] Last Admin: 11/11/16 08:31 Dose: 600 mg Nystatin (Nystop Topical Powder) 1 applic TOP BID [facility] Last Admin: 11/11/16 17:28 Dose: 1 applic Ondansetron HCl (Zofran Inj) 4 mg IVP Q6 PRN PRN Reason: Nausea/Vomiting Last Admin: 09/19/16 10:26 Dose: 4 mg Pantoprazole Sodium (Protonix Ec Tab) 40 mg PO DAILY [facility] Last Admin: 11/11/16 08:31 Dose: 40 mg Phenylephrine HCl (Dagoberto-Synephrine 0.5% Nasal [place]) 1 spry ALLAN Q4 PRN PRN Reason: Nasal congestion Sevelamer HCl (Renagel) 1,600 mg PO TID [facility] Last Admin: 11/11/16 17:28 Dose: 1,600 mg Topiramate (Topamax) 50 mg PO BID [facility] Last Admin: 11/11/16 17:29 Dose: 50 mg Vitamin B Complex/Vit C/Folic Acid (Nephro-Ajay) 1 tab PO DAILY [facility] Last Admin: 11/11/16 08:31 Dose: 1 tab - Labs Labs: 11/06/16 08:09 11/04/16 17:26 PT 17.6 Seconds (9.8-13.1) H 10/15/16 07:00 INR 1.5 (0.9-1.2) H 10/15/16 07:00 APTT 36.6 Seconds (25.6-37.1) 10/15/16 07:00 Assessment and Plan (1) Status post below knee amputation of right lower extremity Status: Acute (2) ESRD (end stage renal disease) on dialysis Status: Chronic (3) DM type 2 (diabetes mellitus, type 2) Status: Chronic (4) Coagulopathy Status: Chronic (5) Peripheral arterial occlusive disease Status: Chronic
--- NOTE | 2016-11-11 17:48 | CP.PCM.PN ---
Subjective - Date & Time of Evaluation Date of Evaluation: 11/11/16 Time of Evaluation: 17:32 - Subjective Subjective: Patient seen with Drs. Mccormack and Andreea and the surgical team. The Right BK wound is healing nicely from the middle to medial side. The lateral portion does contain some devitalized tissue and grayish muscle. There is good bleeding. Howevere, it may need further debridement in the OR. Two cultures were obtained by swab. I have asked Dr. Lemon to follow up with microbiology regarding these cultures and what he wants done with them. I have ordered for 11/[address] with contrast of the right lower extremity - from above knee through the stump. This will be done in the morning, and dialysis will be done in the afternoon.Vinicio Saeed, supervisor mixing, said the best time is 11:30 am on Fri so that the most experienced help desk technician can do the scan. After wound dressed patient was upset and in severe pain, so I put the Dilaudid back up to 1mg iv q3h. She is also upset at the thought of needing another surgical procedure - but, deep down, the fear is that osteomyelitis will necessitate an AK amputation. Otherwise, no new complaints or problems. No fevers, cough, dyspnea, or chest pain. DM is controlled. HD is well tolerated. Eliquis and ASA are preventing clots. Objective - Vital Signs/Intake and Output Vital Signs (last 24 hours): Temp Pulse Resp BP Pulse Ox 97.4 F L 119 H 18 163/76 H 97 11/11/16 15:59 11/11/16 15:59 11/11/16 15:59 11/11/16 15:59 11/11/16 15:59 - Medications Medications: Current Medications Acetaminophen (Tylenol 325mg Tab) 650 mg PO Q4 PRN PRN Reason: Fever >100.4 F Last Admin: 10/02/16 16:27 Dose: 650 mg Acetaminophen (Tylenol 325mg Tab) 650 mg PO Q4 PRN PRN Reason: Pain, moderate (4-7) Last Admin: 09/16/16 22:34 Dose: 650 mg Albuterol Sulfate (Albuterol 0.083% Inhal Barbie (2.5 Mg/3 Ml) Ud) 2.5 mg INH RQ4 PRN PRN Reason: Shortness of Breath Albuterol/Ipratropium (Duoneb 3 Mg/0.5 Mg (3 Ml) Ud) 3 ml INH RQ4 PRN PRN Reason: Shortness of Breath Last Admin: 11/11/16 07:39 Dose: 3 ml Aspirin (Ecotrin) 81 mg PO DAILY [facility] Last Admin: 11/11/16 08:32 Dose: 81 mg Atorvastatin Calcium (Lipitor) 40 mg PO DAILY [facility] Last Admin: 11/11/16 08:31 Dose: 40 mg Benzonatate (Tessalon Perles) 200 mg PO TID PRN PRN Reason: Cough Last Admin: 10/02/16 14:07 Dose: 200 mg Calcium Carbonate (Oscal) 500 mg PO BIDWM [facility] Last Admin: 11/11/16 17:28 Dose: 500 mg Cinacalcet (Sensipar) 30 mg PO DAILY [facility] Last Admin: 11/11/16 08:33 Dose: 30 mg Collagenase (Santyl) 1 applic TOP DAILY [facility] Last Admin: 11/11/16 08:31 Dose: 1 applic Diphenhydramine HCl (Benadryl) 25 mg PO Q6 PRN PRN Reason: Itching / Pruritus Epoetin Tha (Procrit) [facility] Last Admin: 11/11/16 14:16 Dose: 20,000 unit Ergocalciferol (Drisdol 50,000 Intl Units Cap) 1 cap PO WED [facility] Fluconazole (Diflucan) 100 mg PO DAILY [facility] Last Admin: 11/11/16 08:31 Dose: 100 mg Gabapentin (Neurontin) 300 mg PO TID [facility] Last Admin: 11/11/16 17:28 Dose: 300 mg Hydrocortisone (Anusol-Hc) 1 applic [place] BID PRN PRN Reason: Inflammation Hydromorphone HCl (Dilaudid) 1 mg IVP Q3H PRN PRN Reason: Pain, severe (8-10) Amikacin Sulfate 250 mg/ (Sodium Chloride) 101 mls @ 100.609 mls/hr IVPB MWF [facility] Last Admin: 11/11/16 08:30 Dose: 100.609 mls/hr Meropenem 500 mg/ Sodium (Chloride) 100 mls @ 100 mls/hr IVPB DAILY@0100 [facility] Last Admin: 11/11/16 00:11 Dose: 100 mls/hr Sodium Chloride (Sodium Chloride 0.9%) 1,000 mls @ 10 mls/hr IV .Q24H [facility] Last Admin: 11/11/16 17:29 Dose: Not Given Piperacillin Sod/Tazobactam (Sod 2.25 gm/ Sodium Chloride) 100 mls @ 100 mls/ hr IVPB Q12@0900,2100 [facility] Last Admin: 11/11/16 08:30 Dose: 100 mls/hr Insulin Detemir (Levemir) 26 units SC HS [facility] Last Admin: 11/10/16 21:51 Dose: 26 units Insulin Human Lispro (Humalog) 8 units SC AC [facility] Last Admin: 11/11/16 13:19 Dose: 8 units Lidocaine (Lidoderm) 1 ea TD DAILY [facility] Last Admin: 11/11/16 08:32 Dose: 1 ea Linezolid (Zyvox) 600 mg PO Q12 [facility] Last Admin: 11/11/16 08:31 Dose: 600 mg Nystatin (Nystop Topical Powder) 1 applic TOP BID [facility] Last Admin: 11/11/16 17:28 Dose: 1 applic Ondansetron HCl (Zofran Inj) 4 mg IVP Q6 PRN PRN Reason: Nausea/Vomiting Last Admin: 09/19/16 10:26 Dose: 4 mg Pantoprazole Sodium (Protonix Ec Tab) 40 mg PO DAILY [facility] Last Admin: 11/11/16 08:31 Dose: 40 mg Phenylephrine HCl (Dagoberto-Synephrine 0.5% Nasal [place]) 1 spry ALLAN Q4 PRN PRN Reason: Nasal congestion Sevelamer HCl (Renagel) 1,600 mg PO TID [facility] Last Admin: 11/11/16 17:28 Dose: 1,600 mg Topiramate (Topamax) 50 mg PO BID [facility] Last Admin: 11/11/16 17:29 Dose: 50 mg Vitamin B Complex/Vit C/Folic Acid (Nephro-Ajay) 1 tab PO DAILY [facility] Last Admin: 11/11/16 08:31 Dose: 1 tab - Labs Labs: 11/06/16 08:09 11/04/16 17:26 PT 17.6 Seconds (9.8-13.1) H 10/15/16 07:00 INR 1.5 (0.9-1.2) H 10/15/16 07:00 APTT 36.6 Seconds (25.6-37.1) 10/15/16 07:00 - Constitutional Appears: Other (Upset, crying.) - Head Exam Head Exam: NORMAL INSPECTION - Eye Exam Eye Exam: Normal appearance - ENT Exam ENT Exam: Mucous Membranes Moist - Neck Exam Neck Exam: Normal Inspection - Respiratory Exam Respiratory Exam: Clear to Ausculation Bilateral, NORMAL BREATHING PATTERN - Cardiovascular Exam Cardiovascular Exam: REGULAR RHYTHM, +S1, +S2 - GI/Abdominal Exam GI & Abdominal Exam: Soft - Extremities Exam Additional comments: SEE SUBJECTIVE. Otherwise upper extremities and left lower extremity are unchanged. L femoral vein PICC line is intact. - Back Exam Back Exam: NORMAL INSPECTION - Neurological Exam Neurological Exam: Alert, Awake, CN II-XII Intact, Oriented x3 - Psychiatric Exam Psychiatric exam: Depressed - Skin Skin Exam: Dry, Normal Color, Warm Additional comments: See subjective re wound. Assessment and Plan (1) Status post below knee amputation of right lower extremity Status: Acute (2) ESRD (end stage renal disease) on dialysis Assessment & Plan: Slow healing of amputation wound, but except for the right lateral area, the wound is granulating in nicely. See subjective for info re cultures, planned CT with contrast of right lower extremity. Rule out osteomyelitis. Possible need for further debridement. Status: Chronic (3) DM type 2 (diabetes mellitus, type 2) Status: Chronic (4) Coagulopathy Status: Chronic (5) Peripheral arterial occlusive disease Status: Chronic
[2016-11-11] MEDS: Insulin Detemir 100 Units/ml Inj SC SCH (22:15)
--- NOTE | 2016-11-11 22:58 | CP.PCM.PN ---
Subjective - Date & Time of Evaluation Date of Evaluation: 11/11/16 Time of Evaluation: 21:00 - Subjective Subjective: Patient is suffering from Right Stump pain, she was relieved by narcotics, mainly Dilaudid. There is no reported Seizures and she is receiving Po Topamax 50 mg BID. She is receiving her Hemodialysis as scheduled. Objective - Vital Signs/Intake and Output Vital Signs (last 24 hours): Temp Pulse Resp BP Pulse Ox 97.4 F L 119 H 18 163/76 H 97 11/11/16 15:59 11/11/16 15:59 11/11/16 15:59 11/11/16 15:59 11/11/16 15:59 - Medications Medications: Current Medications Acetaminophen (Tylenol 325mg Tab) 650 mg PO Q4 PRN PRN Reason: Fever >100.4 F Last Admin: 10/02/16 16:27 Dose: 650 mg Acetaminophen (Tylenol 325mg Tab) 650 mg PO Q4 PRN PRN Reason: Pain, moderate (4-7) Last Admin: 09/16/16 22:34 Dose: 650 mg Albuterol Sulfate (Albuterol 0.083% Inhal Barbie (2.5 Mg/3 Ml) Ud) 2.5 mg INH RQ4 PRN PRN Reason: Shortness of Breath Albuterol/Ipratropium (Duoneb 3 Mg/0.5 Mg (3 Ml) Ud) 3 ml INH RQ4 PRN PRN Reason: Shortness of Breath Last Admin: 11/11/16 07:39 Dose: 3 ml Aspirin (Ecotrin) 81 mg PO DAILY [facility] Last Admin: 11/11/16 08:32 Dose: 81 mg Atorvastatin Calcium (Lipitor) 40 mg PO DAILY [facility] Last Admin: 11/11/16 08:31 Dose: 40 mg Benzonatate (Tessalon Perles) 200 mg PO TID PRN PRN Reason: Cough Last Admin: 10/02/16 14:07 Dose: 200 mg Calcium Carbonate (Oscal) 500 mg PO BIDWM [facility] Last Admin: 11/11/16 17:28 Dose: 500 mg Cinacalcet (Sensipar) 30 mg PO DAILY [facility] Last Admin: 11/11/16 08:33 Dose: 30 mg Collagenase (Santyl) 1 applic TOP DAILY [facility] Last Admin: 11/11/16 08:31 Dose: 1 applic Diphenhydramine HCl (Benadryl) 25 mg PO Q6 PRN PRN Reason: Itching / Pruritus Epoetin Tha (Procrit) 20,000 unit IV [facility] Last Admin: 11/11/16 14:16 Dose: 20,000 unit Ergocalciferol (Drisdol 50,000 Intl Units Cap) 1 cap PO WED [facility] Fluconazole (Diflucan) 100 mg PO DAILY [facility] Last Admin: 11/11/16 08:31 Dose: 100 mg Gabapentin (Neurontin) 300 mg PO TID [facility] Last Admin: 11/11/16 17:28 Dose: 300 mg Hydrocortisone (Anusol-Hc) 1 applic [place] BID PRN PRN Reason: Inflammation Hydromorphone HCl (Dilaudid) 1 mg IVP Q3H PRN PRN Reason: Pain, severe (8-10) Last Admin: 11/11/16 22:13 Dose: 1 mg Amikacin Sulfate 250 mg/ (Sodium Chloride) 101 mls @ 100.609 mls/hr IVPB [facility] Last Admin: 11/11/16 08:30 Dose: 100.609 mls/hr Meropenem 500 mg/ Sodium (Chloride) 100 mls @ 100 mls/hr IVPB DAILY@0100 [facility] Last Admin: 11/11/16 00:11 Dose: 100 mls/hr Sodium Chloride (Sodium Chloride 0.9%) 1,000 mls @ 10 mls/hr IV .Q24H [facility] Last Admin: 11/11/16 17:29 Dose: Not Given Piperacillin Sod/Tazobactam (Sod 2.25 gm/ Sodium Chloride) 100 mls @ 100 mls/ hr IVPB Q12@0900,2100 [facility] Last Admin: 11/11/16 20:22 Dose: 100 mls/hr Insulin Detemir (Levemir) 26 units SC HS [facility] Last Admin: 11/11/16 22:15 Dose: 26 units Insulin Human Lispro (Humalog) 8 units SC AC [facility] Last Admin: 11/11/16 20:24 Dose: 8 units Lidocaine (Lidoderm) 1 ea TD DAILY [facility] Last Admin: 11/11/16 08:32 Dose: 1 ea Linezolid (Zyvox) 600 mg PO Q12 [facility] Last Admin: 11/11/16 20:24 Dose: 600 mg Nystatin (Nystop Topical Powder) 1 applic TOP BID [facility] Last Admin: 11/11/16 17:28 Dose: 1 applic Ondansetron HCl (Zofran Inj) 4 mg IVP Q6 PRN PRN Reason: Nausea/Vomiting Last Admin: 09/19/16 10:26 Dose: 4 mg Pantoprazole Sodium (Protonix Ec Tab) 40 mg PO DAILY [facility] Last Admin: 11/11/16 08:31 Dose: 40 mg Phenylephrine HCl (Dagoberto-Synephrine 0.5% Nasal [place]) 1 spry ALLAN Q4 PRN PRN Reason: Nasal congestion Sevelamer HCl (Renagel) 1,600 mg PO TID [facility] Last Admin: 11/11/16 17:28 Dose: 1,600 mg Topiramate (Topamax) 50 mg PO BID [facility] Last Admin: 11/11/16 17:29 Dose: 50 mg Vitamin B Complex/Vit C/Folic Acid (Nephro-Ajay) 1 tab PO DAILY [facility] Last Admin: 11/11/16 08:31 Dose: 1 tab - Labs Labs: 11/06/16 08:09 11/04/16 17:26 PT 17.6 Seconds (9.8-13.1) H 10/15/16 07:00 INR 1.5 (0.9-1.2) H 10/15/16 07:00 APTT 36.6 Seconds (25.6-37.1) 10/15/16 07:00 Assessment and Plan (1) Diabetes Status: Chronic (2) ESRD (end stage renal disease) Status: Chronic (3) Cellulitis of leg Status: Chronic (4) Hyperlipidemia Status: Chronic (5) Back pain Status: Acute (6) Bacteremia due to Gram-negative bacteria Status: Acute (7) Diabetes mellitus type 2 with peripheral artery disease Status: Acute (8) PVD (peripheral vascular disease) Status: Acute (9) Osteomyelitis of right foot Status: Acute (10) Fungal infection right foot Status: Acute
[2016-11-12] MEDS: Meropenem 500 MG in Sodium Chloride 0.9% 100 ML IVPB SCH (01:23)
[2016-11-12] MEDS: Multivitamin Vitamin B Complex (Nephro-Vite) Tab PO SCH (08:25)
[2016-11-12] MEDS: Pantoprazole 40 mg EC Tab PO SCH (08:26)
[2016-11-12] MEDS: Lidocaine 5% Patch TD SCH (08:26)
[2016-11-12] MEDS: Insulin Lispro (humaLOG) 100 Units/ml Inj SC SCH ×3 (08:27→16:31)
[2016-11-12] MEDS: Santyl Collagenase OINTMENT TOP SCH (08:27)
--- NOTE | 2016-11-12 13:13 | CP.PCM.PN ---
Subjective - Date & Time of Evaluation Date of Evaluation: 11/12/16 Time of Evaluation: 13:10 - Subjective Subjective: Patient was seen by Dr. Mccormack this morning. Tight bandage was redone. There is concern regarding the lateral half of the surgical wound. We are awaiting the CT with contrast to be done tomorrow and the woundcultures done 11/11/16. Patient notes some slight cough, congestion. She took a albuterol aerosol treatment last night. No fevers, no dyspnea, no chest pain. Otherwise, no changes. Objective - Vital Signs/Intake and Output Vital Signs (last 24 hours): Temp Pulse Resp BP Pulse Ox 97.4 F L 114 H 19 89/63 L 100 11/12/16 08:15 11/12/16 08:15 11/12/16 08:15 11/12/16 08:15 11/12/16 08:15 - Medications Medications: Current Medications Acetaminophen (Tylenol 325mg Tab) 650 mg PO Q4 PRN PRN Reason: Fever >100.4 F Last Admin: 10/02/16 16:27 Dose: 650 mg Acetaminophen (Tylenol 325mg Tab) 650 mg PO Q4 PRN PRN Reason: Pain, moderate (4-7) Last Admin: 09/16/16 22:34 Dose: 650 mg Albuterol Sulfate (Albuterol 0.083% Inhal Barbie (2.5 Mg/3 Ml) Ud) 2.5 mg INH RQ4 PRN PRN Reason: Shortness of Breath Albuterol/Ipratropium (Duoneb 3 Mg/0.5 Mg (3 Ml) Ud) 3 ml INH RQ4 PRN PRN Reason: Shortness of Breath Last Admin: 11/11/16 07:39 Dose: 3 ml Aspirin (Ecotrin) 81 mg PO DAILY [facility] Last Admin: 11/12/16 08:24 Dose: 81 mg Atorvastatin Calcium (Lipitor) 40 mg PO DAILY [facility] Last Admin: 11/12/16 09:40 Dose: 40 mg Benzonatate (Tessalon Perles) 200 mg PO TID PRN PRN Reason: Cough Last Admin: 10/02/16 14:07 Dose: 200 mg Calcium Carbonate (Oscal) 500 mg PO BIDWM [facility] Last Admin: 11/12/16 08:24 Dose: 500 mg Cinacalcet (Sensipar) 30 mg PO DAILY [facility] Last Admin: 11/12/16 08:25 Dose: 30 mg Collagenase (Santyl) 1 applic TOP DAILY [facility] Last Admin: 11/12/16 08:27 Dose: 1 applic Diphenhydramine HCl (Benadryl) 25 mg PO Q6 PRN PRN Reason: Itching / Pruritus Last Admin: 11/12/16 08:34 Dose: 25 mg Epoetin Tha (Procrit) 20,000 unit IV [facility] Last Admin: 11/11/16 14:16 Dose: 20,000 unit Ergocalciferol (Drisdol 50,000 Intl Units Cap) 1 cap PO WED [facility] Fluconazole (Diflucan) 100 mg PO DAILY [facility] Last Admin: 11/12/16 08:26 Dose: 100 mg Gabapentin (Neurontin) 300 mg PO TID [facility] Last Admin: 11/12/16 12:52 Dose: 300 mg Hydrocortisone (Anusol-Hc) 1 applic [place] BID PRN PRN Reason: Inflammation Hydromorphone HCl (Dilaudid) 1 mg IVP Q3H PRN PRN Reason: Pain, severe (8-10) Last Admin: 11/12/16 11:47 Dose: 1 mg Amikacin Sulfate 250 mg/ (Sodium Chloride) 101 mls @ 100.609 mls/hr IVPB [facility] Last Admin: 11/11/16 08:30 Dose: 100.609 mls/hr Meropenem 500 mg/ Sodium (Chloride) 100 mls @ 100 mls/hr IVPB DAILY@0100 [facility] Last Admin: 11/12/16 01:23 Dose: 100 mls/hr Sodium Chloride (Sodium Chloride 0.9%) 1,000 mls @ 10 mls/hr IV .Q24H [facility] Last Admin: 11/11/16 17:29 Dose: Not Given Piperacillin Sod/Tazobactam (Sod 2.25 gm/ Sodium Chloride) 100 mls @ 100 mls/ hr IVPB Q12@0900,2100 [facility] Last Admin: 11/12/16 08:28 Dose: 100 mls/hr Insulin Detemir (Levemir) 26 units SC HS [facility] Last Admin: 11/11/16 22:15 Dose: 26 units Insulin Human Lispro (Humalog) 6 units SC AC [facility] Last Admin: 11/12/16 12:52 Dose: 6 units Lidocaine (Lidoderm) 1 ea TD DAILY [facility] Last Admin: 11/12/16 08:26 Dose: 1 ea Linezolid (Zyvox) 600 mg PO Q12 [facility] Last Admin: 11/12/16 08:25 Dose: 600 mg Nystatin (Nystop Topical Powder) 1 applic TOP BID [facility] Last Admin: 11/12/16 08:27 Dose: 1 applic Ondansetron HCl (Zofran Inj) 4 mg IVP Q6 PRN PRN Reason: Nausea/Vomiting Last Admin: 09/19/16 10:26 Dose: 4 mg Pantoprazole Sodium (Protonix Ec Tab) 40 mg PO DAILY [facility] Last Admin: 11/12/16 08:26 Dose: 40 mg Sevelamer HCl (Renagel) 1,600 mg PO TID [facility] Last Admin: 11/12/16 12:52 Dose: 1,600 mg Topiramate (Topamax) 50 mg PO BID [facility] Last Admin: 11/12/16 08:25 Dose: 50 mg Vitamin B Complex/Vit C/Folic Acid (Nephro-Ajay) 1 tab PO DAILY [facility] Last Admin: 11/12/16 08:25 Dose: 1 tab - Labs Labs: 11/06/16 08:09 11/04/16 17:26 PT 17.6 Seconds (9.8-13.1) H 10/15/16 07:00 INR 1.5 (0.9-1.2) H 10/15/16 07:00 APTT 36.6 Seconds (25.6-37.1) 10/15/16 07:00 Microbiology 11/11/16 Unknown Leg - Right Gram Stain - Final 11/11/16 Unknown Leg - Right Gram Stain - Final - Constitutional Appears: No Acute Distress - Head Exam Head Exam: NORMAL INSPECTION - Eye Exam Eye Exam: Normal appearance - ENT Exam ENT Exam: Mucous Membranes Moist - Neck Exam Neck Exam: Normal Inspection Additional comments: Right subclavian Permacath intact - Respiratory Exam Respiratory Exam: NORMAL BREATHING PATTERN Additional comments: Some inspiratory crackles at right base. - Cardiovascular Exam Cardiovascular Exam: REGULAR RHYTHM, +S1, +S2 - GI/Abdominal Exam GI & Abdominal Exam: Soft - Extremities Exam Additional comments: Dressing and knee immobilizer intact R residual limb. Left femoral PICC line intact. - Back Exam Back Exam: NORMAL INSPECTION - Neurological Exam Neurological Exam: Alert, Awake, CN II-XII Intact, Oriented x3 - Psychiatric Exam Psychiatric exam: Normal Affect, Normal Mood - Skin Skin Exam: Dry, Intact, Normal Color, Warm Assessment and Plan (1) Status post below knee amputation of right lower extremity Status: Acute (2) ESRD (end stage renal disease) on dialysis Status: Chronic (3) DM type 2 (diabetes mellitus, type 2) Status: Chronic (4) Coagulopathy Status: Chronic (5) Peripheral arterial occlusive disease Status: Chronic - Assessment and Plan (Free Text) Assessment: Clinically stable. See Subjective for plans. CBC and CMP to be done tomorrow at time of dialysis.
--- NOTE | 2016-11-12 15:29 | CP.PCM.PN ---
Subjective - Date & Time of Evaluation Date of Evaluation: 11/12/16 Time of Evaluation: 02:00 - Subjective Subjective: No complaints. Appears comfortable in bed Objective - Vital Signs/Intake and Output Vital Signs (last 24 hours): Temp Pulse Resp BP Pulse Ox 97.4 F L 114 H 19 89/63 L 100 11/12/16 08:15 11/12/16 08:15 11/12/16 08:15 11/12/16 08:15 11/12/16 08:15 - Medications Medications: Current Medications Acetaminophen (Tylenol 325mg Tab) 650 mg PO Q4 PRN PRN Reason: Fever >100.4 F Last Admin: 10/02/16 16:27 Dose: 650 mg Acetaminophen (Tylenol 325mg Tab) 650 mg PO Q4 PRN PRN Reason: Pain, moderate (4-7) Last Admin: 09/16/16 22:34 Dose: 650 mg Albuterol Sulfate (Albuterol 0.083% Inhal Barbie (2.5 Mg/3 Ml) Ud) 2.5 mg INH RQ4 PRN PRN Reason: Shortness of Breath Albuterol/Ipratropium (Duoneb 3 Mg/0.5 Mg (3 Ml) Ud) 3 ml INH RQ4 PRN PRN Reason: Shortness of Breath Last Admin: 11/11/16 07:39 Dose: 3 ml Aspirin (Ecotrin) 81 mg PO DAILY [facility] Last Admin: 11/12/16 08:24 Dose: 81 mg Atorvastatin Calcium (Lipitor) 40 mg PO DAILY [facility] Last Admin: 11/12/16 09:40 Dose: 40 mg Benzonatate (Tessalon Perles) 200 mg PO TID PRN PRN Reason: Cough Last Admin: 10/02/16 14:07 Dose: 200 mg Calcium Carbonate (Oscal) 500 mg PO BIDWM [facility] Last Admin: 11/12/16 08:24 Dose: 500 mg Cinacalcet (Sensipar) 30 mg PO DAILY [facility] Last Admin: 11/12/16 08:25 Dose: 30 mg Collagenase (Santyl) 1 applic TOP DAILY [facility] Last Admin: 11/12/16 08:27 Dose: 1 applic Diphenhydramine HCl (Benadryl) 25 mg PO Q6 PRN PRN Reason: Itching / Pruritus Last Admin: 11/12/16 08:34 Dose: 25 mg Epoetin Tha (Procrit) 20,000 unit IV MWF [facility] Last Admin: 11/11/16 14:16 Dose: 20,000 unit Ergocalciferol (Drisdol 50,000 Intl Units Cap) 1 cap PO WED [facility] Fluconazole (Diflucan) 100 mg PO DAILY [facility] Last Admin: 11/12/16 08:26 Dose: 100 mg Gabapentin (Neurontin) 300 mg PO TID [facility] Last Admin: 11/12/16 12:52 Dose: 300 mg Hydrocortisone (Anusol-Hc) [address] BID PRN PRN Reason: Inflammation Hydromorphone HCl (Dilaudid) 1 mg IVP Q3H PRN PRN Reason: Pain, severe (8-10) Last Admin: 11/12/16 11:47 Dose: 1 mg Amikacin Sulfate 250 mg/ (Sodium Chloride) 101 mls @ 100.609 mls[facility] Last Admin: 11/11/16 08:30 Dose: 100.609 mls/hr Meropenem 500 mg/ Sodium (Chloride) 100 mls @ 100 mls/hr IVPB DAILY@0100 [facility] Last Admin: 11/12/16 01:23 Dose: 100 mls/hr Sodium Chloride (Sodium Chloride 0.9%) 1,000 mls @ 10 mls/hr IV .Q24H [facility] Last Admin: 11/11/16 17:29 Dose: Not Given Piperacillin Sod/Tazobactam (Sod 2.25 gm/ Sodium Chloride) 100 mls @ 100 mls/ hr IVPB Q12@0900,2100 [facility] Last Admin: 11/12/16 08:28 Dose: 100 mls/hr Insulin Detemir (Levemir) 26 units SC HS [facility] Last Admin: 11/11/16 22:15 Dose: 26 units Insulin Human Lispro (Humalog) 6 units SC AC [facility] Last Admin: 11/12/16 12:52 Dose: 6 units Lidocaine (Lidoderm) 1 ea TD DAILY [facility] Last Admin: 11/12/16 08:26 Dose: 1 ea Linezolid (Zyvox) 600 mg PO Q12 [facility] Last Admin: 11/12/16 08:25 Dose: 600 mg Nystatin (Nystop Topical Powder) 1 applic TOP BID [facility] Last Admin: 11/12/16 08:27 Dose: 1 applic Ondansetron HCl (Zofran Inj) 4 mg IVP Q6 PRN PRN Reason: Nausea/Vomiting Last Admin: 09/19/16 10:26 Dose: 4 mg Pantoprazole Sodium (Protonix Ec Tab) 40 mg PO DAILY [facility] Last Admin: 11/12/16 08:26 Dose: 40 mg Sevelamer HCl (Renagel) 1,600 mg PO TID [facility] Last Admin: 11/12/16 12:52 Dose: 1,600 mg Topiramate (Topamax) 50 mg PO BID [facility] Last Admin: 11/12/16 08:25 Dose: 50 mg Vitamin B Complex/Vit C/Folic Acid (Nephro-Ajay) 1 tab PO DAILY [facility] Last Admin: 11/12/16 08:25 Dose: 1 tab - Labs Labs: 11/06/16 08:09 11/04/16 17:26 PT 17.6 Seconds (9.8-13.1) H 10/15/16 07:00 INR 1.5 (0.9-1.2) H 10/15/16 07:00 APTT 36.6 Seconds (25.6-37.1) 10/15/16 07:00 - Respiratory Exam Additional comments: Lungs clear - Cardiovascular Exam Cardiovascular Exam: REGULAR RHYTHM - Extremities Exam Additional comments: B/L BKA Assessment and Plan - Assessment and Plan (Free Text) Assessment: ESRD on HD PVD IDDM Plan: Stable on HD Continu hemodialysis MWF
[2016-11-12] MEDS: Sodium Chloride 0.9% 1,000 ML IV SCH (16:30)
--- NOTE | 2016-11-12 17:06 | CP.PCM.PN ---
Subjective - Date & Time of Evaluation Date of Evaluation: 11/12/16 Time of Evaluation: 17:00 - Subjective Subjective: ID NOTE HAVE REVIEWED AND CONSIDERING STUP WILL D/C ZOSYN ,PO ZYVOX, START DAPTOMYCIN AWAIT FURTHER CULTURES Objective - Vital Signs/Intake and Output Vital Signs (last 24 hours): Temp Pulse Resp BP Pulse Ox 97.4 F L 110 H 20 97/72 L 95 11/12/16 16:27 11/12/16 16:27 11/12/16 16:27 11/12/16 16:27 11/12/16 16:27 - Medications Medications: Current Medications Acetaminophen (Tylenol 325mg Tab) 650 mg PO Q4 PRN PRN Reason: Fever >100.4 F Last Admin: 10/02/16 16:27 Dose: 650 mg Acetaminophen (Tylenol 325mg Tab) 650 mg PO Q4 PRN PRN Reason: Pain, moderate (4-7) Last Admin: 09/16/16 22:34 Dose: 650 mg Albuterol Sulfate (Albuterol 0.083% Inhal Barbie (2.5 Mg/3 Ml) Ud) 2.5 mg INH RQ4 PRN PRN Reason: Shortness of Breath Albuterol/Ipratropium (Duoneb 3 Mg/0.5 Mg (3 Ml) Ud) 3 ml INH RQ4 PRN PRN Reason: Shortness of Breath Last Admin: 11/11/16 07:39 Dose: 3 ml Aspirin (Ecotrin) 81 mg PO DAILY [facility] Last Admin: 11/12/16 08:24 Dose: 81 mg Atorvastatin Calcium (Lipitor) 40 mg PO DAILY [facility] Last Admin: 11/12/16 09:40 Dose: 40 mg Benzonatate (Tessalon Perles) 200 mg PO TID PRN PRN Reason: Cough Last Admin: 10/02/16 14:07 Dose: 200 mg Calcium Carbonate (Oscal) 500 mg PO BIDWM [facility] Last Admin: 11/12/16 16:30 Dose: 500 mg Cinacalcet (Sensipar) 30 mg PO DAILY [facility] Last Admin: 11/12/16 08:25 Dose: 30 mg Collagenase (Santyl) 1 applic TOP DAILY [facility] Last Admin: 11/12/16 08:27 Dose: 1 applic Diphenhydramine HCl (Benadryl) 25 mg PO Q6 PRN PRN Reason: Itching / Pruritus Last Admin: 11/12/16 08:34 Dose: 25 mg Epoetin Tha (Procrit) 20,000 unit IV [facility] Last Admin: 11/11/16 14:16 Dose: 20,000 unit Ergocalciferol (Drisdol 50,000 Intl Units Cap) 1 cap PO WED [facility] Fluconazole (Diflucan) 100 mg PO DAILY [facility] Last Admin: 11/12/16 08:26 Dose: 100 mg Gabapentin (Neurontin) 300 mg PO TID [facility] Last Admin: 11/12/16 16:31 Dose: 300 mg Hydrocortisone (Anusol-Hc) 1 applic [place] BID PRN PRN Reason: Inflammation Hydromorphone HCl (Dilaudid) 1 mg IVP Q3H PRN PRN Reason: Pain, severe (8-10) Last Admin: 11/12/16 15:38 Dose: 1 mg Amikacin Sulfate 250 mg/ (Sodium Chloride) 101 mls @ 100.609 mls/hr IVPB [facility] Last Admin: 11/11/16 08:30 Dose: 100.609 mls/hr Meropenem 500 mg/ Sodium (Chloride) 100 mls @ 100 mls/hr IVPB DAILY@0100 [facility] Last Admin: 11/12/16 01:23 Dose: 100 mls/hr Sodium Chloride (Sodium Chloride 0.9%) 1,000 mls @ 10 mls/hr IV .Q24H [facility] Last Admin: 11/12/16 16:30 Dose: Not Given Daptomycin 650 mg/ Sodium (Chloride) 100 mls @ 100 mls/hr IV [facility] Stop: 11/18/16 09:01 Insulin Detemir (Levemir) 26 units SC HS [facility] Last Admin: 11/11/16 22:15 Dose: 26 units Insulin Human Lispro (Humalog) 6 units SC AC [facility] Last Admin: 11/12/16 16:31 Dose: 6 units Lidocaine (Lidoderm) 1 ea TD DAILY [facility] Last Admin: 11/12/16 08:26 Dose: 1 ea Nystatin (Nystop Topical Powder) 1 applic TOP BID [facility] Last Admin: 11/12/16 16:30 Dose: 1 applic Ondansetron HCl (Zofran Inj) 4 mg IVP Q6 PRN PRN Reason: Nausea/Vomiting Last Admin: 09/19/16 10:26 Dose: 4 mg Pantoprazole Sodium (Protonix Ec Tab) 40 mg PO DAILY [facility] Last Admin: 11/12/16 08:26 Dose: 40 mg Sevelamer HCl (Renagel) 1,600 mg PO TID [facility] Last Admin: 11/12/16 16:29 Dose: 1,600 mg Topiramate (Topamax) 50 mg PO BID [facility] Last Admin: 11/12/16 16:30 Dose: 50 mg Vitamin B Complex/Vit C/Folic Acid (Nephro-Ajay) 1 tab PO DAILY [facility] Last Admin: 11/12/16 08:25 Dose: 1 tab - Labs Labs: 11/06/16 08:09 11/04/16 17:26 PT 17.6 Seconds (9.8-13.1) H 10/15/16 07:00 INR 1.5 (0.9-1.2) H 10/15/16 07:00 APTT 36.6 Seconds (25.6-37.1) 10/15/16 07:00
--- NOTE | 2016-11-12 22:17 | CP.PCM.PN ---
Subjective - Date & Time of Evaluation Date of Evaluation: 11/12/16 Time of Evaluation: 20:20 - Subjective Subjective: Cultures from the wound of Right Knee Stump, BKA, are negative. Dr Juan is Discontinuing Zosyn ,PO Zyvox, and is Starting DAPTOMYCIN Awaiting for Further Cultures. A CT with contrast of the right knee stump is planned in AM to assess for any features of residual Knee infection. There is no reported seizures, and she is on Topamax 50 mg BID. Her ESRD is helped by regular H.D. on M,W,F. Objective - Vital Signs/Intake and Output Vital Signs (last 24 hours): Temp Pulse Resp BP Pulse Ox 97.4 F L 110 H 20 97/72 L 95 11/12/16 16:27 11/12/16 16:27 11/12/16 16:27 11/12/16 16:27 11/12/16 16:27 - Medications Medications: Current Medications Acetaminophen (Tylenol 325mg Tab) 650 mg PO Q4 PRN PRN Reason: Fever >100.4 F Last Admin: 10/02/16 16:27 Dose: 650 mg Acetaminophen (Tylenol 325mg Tab) 650 mg PO Q4 PRN PRN Reason: Pain, moderate (4-7) Last Admin: 09/16/16 22:34 Dose: 650 mg Albuterol Sulfate (Albuterol 0.083% Inhal Barbie (2.5 Mg/3 Ml) Ud) 2.5 mg INH RQ4 PRN PRN Reason: Shortness of Breath Albuterol/Ipratropium (Duoneb 3 Mg/0.5 Mg (3 Ml) Ud) 3 ml INH RQ4 PRN PRN Reason: Shortness of Breath Last Admin: 11/11/16 07:39 Dose: 3 ml Aspirin (Ecotrin) 81 mg PO DAILY [facility] Last Admin: 11/12/16 08:24 Dose: 81 mg Atorvastatin Calcium (Lipitor) 40 mg PO DAILY [facility] Last Admin: 11/12/16 09:40 Dose: 40 mg Benzonatate (Tessalon Perles) 200 mg PO TID PRN PRN Reason: Cough Last Admin: 10/02/16 14:07 Dose: 200 mg Calcium Carbonate (Oscal) 500 mg PO BIDWM [facility] Last Admin: 11/12/16 16:30 Dose: 500 mg Cinacalcet (Sensipar) 30 mg PO DAILY [facility] Last Admin: 11/12/16 08:25 Dose: 30 mg Collagenase (Santyl) 1 applic TOP DAILY [facility] Last Admin: 11/12/16 08:27 Dose: 1 applic Diphenhydramine HCl (Benadryl) 25 mg PO Q6 PRN PRN Reason: Itching / Pruritus Last Admin: 11/12/16 08:34 Dose: 25 mg Epoetin Tha (Procrit) 20,000 unit IV [facility] Last Admin: 11/11/16 14:16 Dose: 20,000 unit Ergocalciferol (Drisdol 50,000 Intl Units Cap) 1 cap PO WED [facility] Fluconazole (Diflucan) 100 mg PO DAILY [facility] Last Admin: 11/12/16 08:26 Dose: 100 mg Gabapentin (Neurontin) 300 mg PO TID [facility] Last Admin: 11/12/16 16:31 Dose: 300 mg Hydrocortisone (Anusol-Hc) 1 applic [place] BID PRN PRN Reason: Inflammation Hydromorphone HCl (Dilaudid) 1 mg IVP Q3H PRN PRN Reason: Pain, severe (8-10) Last Admin: 11/12/16 19:48 Dose: 1 mg Amikacin Sulfate 250 mg/ (Sodium Chloride) 101 mls @ 100.609 mls/hr IVPB [facility] [place] Last Admin: 11/11/16 08:30 Dose: 100.609 mls/hr Meropenem 500 mg/ Sodium (Chloride) 100 mls @ 100 mls/hr IVPB DAILY@0100 [facility] Last Admin: 11/12/16 01:23 Dose: 100 mls/hr Sodium Chloride (Sodium Chloride 0.9%) 1,000 mls @ 10 mls/hr IV .Q24H [facility] Last Admin: 11/12/16 16:30 Dose: Not Given Daptomycin 650 mg/ Sodium (Chloride) 100 mls @ 100 mls/hr IV [facility] [place] Stop: 11/18/16 09:01 Insulin Detemir (Levemir) 26 units SC HS [facility] Last Admin: 11/11/16 22:15 Dose: 26 units Insulin Human Lispro (Humalog) 6 units SC AC [facility] Last Admin: 11/12/16 16:31 Dose: 6 units Lidocaine (Lidoderm) 1 ea TD DAILY [facility] Last Admin: 11/12/16 08:26 Dose: 1 ea Nystatin (Nystop Topical Powder) 1 applic TOP BID [facility] Last Admin: 11/12/16 16:30 Dose: 1 applic Ondansetron HCl (Zofran Inj) 4 mg IVP Q6 PRN PRN Reason: Nausea/Vomiting Last Admin: 09/19/16 10:26 Dose: 4 mg Pantoprazole Sodium (Protonix Ec Tab) 40 mg PO DAILY [facility] Last Admin: 11/12/16 08:26 Dose: 40 mg Sevelamer HCl (Renagel) 1,600 mg PO TID [facility] Last Admin: 11/12/16 16:29 Dose: 1,600 mg Topiramate (Topamax) 50 mg PO BID [facility] Last Admin: 11/12/16 16:30 Dose: 50 mg Vitamin B Complex/Vit C/Folic Acid (Nephro-Ajay) 1 tab PO DAILY [facility] Last Admin: 11/12/16 08:25 Dose: 1 tab - Labs Labs: 11/06/16 08:09 11/04/16 17:26 PT 17.6 Seconds (9.8-13.1) H 10/15/16 07:00 INR 1.5 (0.9-1.2) H 10/15/16 07:00 APTT 36.6 Seconds (25.6-37.1) 10/15/16 07:00 Assessment and Plan (1) Diabetes Status: Chronic (2) ESRD (end stage renal disease) Status: Chronic (3) Cellulitis of leg Status: Chronic (4) Hyperlipidemia Status: Chronic (5) Back pain Status: Acute (6) Bacteremia due to Gram-negative bacteria Status: Acute (7) Diabetes mellitus type 2 with peripheral artery disease Status: Acute (8) PVD (peripheral vascular disease) Status: Acute (9) Osteomyelitis of right foot Status: Acute (10) Fungal infection right foot Status: Acute
[2016-11-12] MEDS: Insulin Detemir 100 Units/ml Inj SC SCH (22:20)
[2016-11-13] MEDS: Meropenem 500 MG in Sodium Chloride 0.9% 100 ML IVPB SCH (00:41)
--- NOTE | 2016-11-13 07:36 | CP.PCM.PN ---
<Jacques Amado - Last Filed: 11/13/16 10:16> Subjective - Date & Time of Evaluation Date of Evaluation: 11/13/16 Time of Evaluation: 07:35 - Subjective Subjective: Surgery Progress note. Dr. Mccormack Pt seen and examined at bedside. No acute events overnight. Patient states that the dressing was changed by wound care staff yesterday and will be changed again today. She denies any new complaints. No F/C. No N/V/D. No chest pain, no SOB. BKA dressing in place on Right lower extremity, clean and dry. Objective - Vital Signs/Intake and Output Vital Signs (last 24 hours): Temp Pulse Resp BP Pulse Ox 97.9 F 100 H 20 102/60 96 11/12/16 23:47 11/12/16 23:47 11/12/16 23:47 11/12/16 23:47 11/12/16 23:47 - Medications Medications: Current Medications Acetaminophen (Tylenol 325mg Tab) 650 mg PO Q4 PRN PRN Reason: Fever >100.4 F Last Admin: 10/02/16 16:27 Dose: 650 mg Acetaminophen (Tylenol 325mg Tab) 650 mg PO Q4 PRN PRN Reason: Pain, moderate (4-7) Last Admin: 09/16/16 22:34 Dose: 650 mg Albuterol Sulfate (Albuterol 0.083% Inhal Barbie (2.5 Mg/3 Ml) Ud) 2.5 mg INH RQ4 PRN PRN Reason: Shortness of Breath Albuterol/Ipratropium (Duoneb 3 Mg/0.5 Mg (3 Ml) Ud) 3 ml INH RQ4 PRN PRN Reason: Shortness of Breath Last Admin: 11/11/16 07:39 Dose: 3 ml Aspirin (Ecotrin) 81 mg PO DAILY [facility] Last Admin: 11/12/16 08:24 Dose: 81 mg Atorvastatin Calcium (Lipitor) 40 mg PO DAILY [facility] Last Admin: 11/12/16 09:40 Dose: 40 mg Benzonatate (Tessalon Perles) 200 mg PO TID PRN PRN Reason: Cough Last Admin: 10/02/16 14:07 Dose: 200 mg Calcium Carbonate (Oscal) 500 mg PO BIDWM [facility] Last Admin: 11/12/16 16:30 Dose: 500 mg Cinacalcet (Sensipar) 30 mg PO DAILY [facility] Last Admin: 11/12/16 08:25 Dose: 30 mg Collagenase (Santyl) 1 applic TOP DAILY [facility] Last Admin: 11/12/16 08:27 Dose: 1 applic Diphenhydramine HCl (Benadryl) 25 mg PO Q6 PRN PRN Reason: Itching / Pruritus Last Admin: 11/12/16 08:34 Dose: 25 mg Epoetin Tha (Procrit) 20,000 unit IV [facility] Ergocalciferol (Drisdol 50,000 Intl Units Cap) 1 cap PO WED [facility] Fluconazole (Diflucan) 100 mg PO DAILY [facility] Last Admin: 11/12/16 08:26 Dose: 100 mg Gabapentin (Neurontin) 300 mg PO TID [facility] Last Admin: 11/12/16 16:31 Dose: 300 mg Hydrocortisone (Anusol-Hc) 1 applic [place] BID PRN PRN Reason: Inflammation Hydromorphone HCl (Dilaudid) 1 mg IVP Q3H PRN PRN Reason: Pain, severe (8-10) Last Admin: 11/13/16 03:55 Dose: 1 mg Amikacin Sulfate 250 mg/ (Sodium Chloride) 101 mls @ 100.609 mls/hr IVPB [facility] Last Admin: 11/11/16 08:30 Dose: 100.609 mls/hr Meropenem 500 mg/ Sodium (Chloride) 100 mls @ 100 mls/hr IVPB DAILY@0100 [facility] Last Admin: 11/13/16 00:41 Dose: 100 mls/hr Sodium Chloride (Sodium Chloride 0.9%) 1,000 mls @ 10 mls/hr IV .Q24H [facility] Last Admin: 11/12/16 16:30 Dose: Not Given Daptomycin 650 mg/ Sodium (Chloride) 100 mls @ 100 mls/hr IV [facility] Stop: 11/18/16 09:01 Insulin Detemir (Levemir) 26 units SC HS [facility] Last Admin: 11/12/16 22:20 Dose: 26 units Insulin Human Lispro (Humalog) 6 units SC AC [facility] Last Admin: 11/12/16 16:31 Dose: 6 units Lidocaine (Lidoderm) 1 ea TD DAILY [facility] Last Admin: 11/12/16 08:26 Dose: 1 ea Nystatin (Nystop Topical Powder) 1 applic TOP BID [facility] Last Admin: 11/12/16 16:30 Dose: 1 applic Ondansetron HCl (Zofran Inj) 4 mg IVP Q6 PRN PRN Reason: Nausea/Vomiting Last Admin: 09/19/16 10:26 Dose: 4 mg Pantoprazole Sodium (Protonix Ec Tab) 40 mg PO DAILY [facility] Last Admin: 11/12/16 08:26 Dose: 40 mg Sevelamer HCl (Renagel) 1,600 mg PO TID [facility] Last Admin: 11/12/16 16:29 Dose: 1,600 mg Topiramate (Topamax) 50 mg PO BID [facility] Last Admin: 11/12/16 16:30 Dose: 50 mg Vitamin B Complex/Vit C/Folic Acid (Nephro-Ajay) 1 tab PO DAILY [facility] Last Admin: 11/12/16 08:25 Dose: 1 tab - Labs Labs: 11/06/16 08:09 11/04/16 17:26 PT 17.6 Seconds (9.8-13.1) H 10/15/16 07:00 INR 1.5 (0.9-1.2) H 10/15/16 07:00 APTT 36.6 Seconds (25.6-37.1) 10/15/16 07:00 - Constitutional Appears: Well, No Acute Distress - Head Exam Head Exam: ATRAUMATIC, NORMAL INSPECTION, NORMOCEPHALIC - Eye Exam Eye Exam: EOMI, Normal appearance - ENT Exam ENT Exam: Mucous Membranes Moist - Respiratory Exam Respiratory Exam: NORMAL BREATHING PATTERN - Cardiovascular Exam Cardiovascular Exam: absent: JVD - GI/Abdominal Exam GI & Abdominal Exam: Soft. absent: Tenderness - Extremities Exam Additional comments: Right lower extremity BKA site dressing in place. No Drainage through dressing noted. Clean and dry. - Neurological Exam Neurological Exam: Alert, Awake - Skin Skin Exam: Warm Assessment and Plan - Assessment and Plan (Free Text) Assessment: 46yo F with PMHx of HTN, ESRD, PVD. General Surgery following s/p Right BKA on . POD 43. - 11/02: Wound Cx Right Stump - Multi drug resistant Klebsiella - 11/11: Wound Cx Right Stump - pending - Continue dressing changes as per wound care team, continue chemical debridement. - Continue Medical management - Pain management. - IV Abx as per ID - f/u CT right lower extremity to r/o osteo. Discussed case with Dr. Mccormack. Jacques Amado PGY1 surgery pager: [phone] <Raffy Mccormack - Last Filed: 11/13/16 15:19> Objective - Vital Signs/Intake and Output Vital Signs (last 24 hours): Temp Pulse Resp BP Pulse Ox 97.6 F 113 H 20 114/80 97 11/13/16 08:12 11/13/16 08:12 11/13/16 08:12 11/13/16 08:12 11/13/16 08:12 - Medications Medications: Current Medications Acetaminophen (Tylenol 325mg Tab) 650 mg PO Q4 PRN PRN Reason: Fever >100.4 F Last Admin: 10/02/16 16:27 Dose: 650 mg Acetaminophen (Tylenol 325mg Tab) 650 mg PO Q4 PRN PRN Reason: Pain, moderate (4-7) Last Admin: 09/16/16 22:34 Dose: 650 mg Albuterol Sulfate (Albuterol 0.083% Inhal Barbie (2.5 Mg/3 Ml) Ud) 2.5 mg INH RQ4 PRN PRN Reason: Shortness of Breath Albuterol/Ipratropium (Duoneb 3 Mg/0.5 Mg (3 Ml) Ud) 3 ml INH RQ4 PRN PRN Reason: Shortness of Breath Last Admin: 11/11/16 07:39 Dose: 3 ml Aspirin (Ecotrin) 81 mg PO DAILY [facility] Last Admin: 11/13/16 08:43 Dose: 81 mg Atorvastatin Calcium (Lipitor) 40 mg PO DAILY [facility] Last Admin: 11/13/16 08:43 Dose: 40 mg Benzonatate (Tessalon Perles) 200 mg PO TID PRN PRN Reason: Cough Last Admin: 10/02/16 14:07 Dose: 200 mg Calcium Carbonate (Oscal) 500 mg PO BIDWM [facility] Last Admin: 11/13/16 08:42 Dose: 500 mg Cinacalcet (Sensipar) 30 mg PO DAILY [facility] Last Admin: 11/13/16 08:42 Dose: 30 mg Collagenase (Santyl) 1 applic TOP DAILY [facility] Last Admin: 11/12/16 08:27 Dose: 1 applic Diphenhydramine HCl (Benadryl) 25 mg PO Q6 PRN PRN Reason: Itching / Pruritus Last Admin: 11/12/16 08:34 Dose: 25 mg Epoetin Tha (Procrit) 20,000 unit IV [facility] Last Admin: 11/13/16 08:47 Dose: Not Given Ergocalciferol (Drisdol 50,000 Intl Units Cap) 1 cap PO WED [facility] Last Admin: 11/13/16 08:42 Dose: 1 cap Fluconazole (Diflucan) 100 mg PO DAILY [facility] Last Admin: 11/13/16 08:41 Dose: 100 mg Gabapentin (Neurontin) 300 mg PO TID [facility] Last Admin: 11/13/16 08:41 Dose: 300 mg Hydrocortisone (Anusol-Hc) 1 applic [place] BID PRN PRN Reason: Inflammation Hydromorphone HCl (Dilaudid) 1 mg IVP Q3H PRN PRN Reason: Pain, severe (8-10) Last Admin: 11/13/16 11:42 Dose: 1 mg Amikacin Sulfate 250 mg/ (Sodium Chloride) 101 mls @ 100.609 mls/hr IVPB [facility] Last Admin: 11/13/16 08:38 Dose: 100.609 mls/hr Meropenem 500 mg/ Sodium (Chloride) 100 mls @ 100 mls/hr IVPB DAILY@0100 [facility] Last Admin: 11/13/16 00:41 Dose: 100 mls/hr Sodium Chloride (Sodium Chloride 0.9%) 1,000 mls @ 10 mls/hr IV .Q24H [facility] Last Admin: 11/12/16 16:30 Dose: Not Given Daptomycin 650 mg/ Sodium (Chloride) 100 mls @ 100 mls/hr IV [facility] Stop: 11/18/16 09:01 Last Admin: 11/13/16 11:07 Dose: 100 mls/hr Insulin Detemir (Levemir) 26 units SC HS [facility] Last Admin: 11/12/16 22:20 Dose: 26 units Insulin Human Lispro (Humalog) 6 units SC AC [facility] Last Admin: 11/13/16 08:46 Dose: 6 units Lidocaine (Lidoderm) 1 ea TD DAILY [facility] Last Admin: 11/13/16 08:46 Dose: 1 ea Nystatin (Nystop Topical Powder) 1 applic TOP BID [facility] Last Admin: 11/13/16 08:47 Dose: 1 applic Ondansetron HCl (Zofran Inj) 4 mg IVP Q6 PRN PRN Reason: Nausea/Vomiting Last Admin: 09/19/16 10:26 Dose: 4 mg Pantoprazole Sodium (Protonix Ec Tab) 40 mg PO DAILY [facility] Last Admin: 11/13/16 08:42 Dose: 40 mg Sevelamer HCl (Renagel) 1,600 mg PO TID [facility] Last Admin: 11/13/16 08:40 Dose: 1,600 mg Topiramate (Topamax) 50 mg PO BID [facility] Last Admin: 11/13/16 08:41 Dose: 50 mg Vitamin B Complex/Vit C/Folic Acid (Nephro-Ajay) 1 tab PO DAILY [facility] Last Admin: 11/13/16 08:42 Dose: 1 tab - Labs Labs: 11/06/16 08:09 11/04/16 17:26 PT 17.6 Seconds (9.8-13.1) H 10/15/16 07:00 INR 1.5 (0.9-1.2) H 10/15/16 07:00 APTT 36.6 Seconds (25.6-37.1) 10/15/16 07:00 Assessment and Plan - Assessment and Plan (Free Text) Plan: Patient is essentially unchanged clinically. Wound culture results are noted. CT done just now - images are not available at the moment for review. I will review CT scan once available, formulate plan and discuss it tomorrow with the patient and team of providers.
[2016-11-13] MEDS: Ergocalciferol 50,000 Intl Units Cap PO SCH (08:42)
[2016-11-13] MEDS: Multivitamin Vitamin B Complex (Nephro-Vite) Tab PO SCH (08:42)
[2016-11-13] MEDS: Pantoprazole 40 mg EC Tab PO SCH (08:42)
[2016-11-13] MEDS: Lidocaine 5% Patch TD SCH (08:46)
[2016-11-13] MEDS: Insulin Lispro (humaLOG) 100 Units/ml Inj SC SCH ×3 (08:46→17:18)
[2016-11-13] MEDS: Epoetin Alfa 20000 UNIT/ML Inj IV SCH (08:47)
[2016-11-13] MEDS ORDERED: DAPTOmycin 500 mg Inj (Cubicin) IV SCH (09:00)
--- NOTE | 2016-11-13 10:27 | CP.PCM.PN ---
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 with multiple complications related to infected stump patient on multiple antibiotics as per primary team Patient making very good progress Patient to receive dialysis now with ultrafiltration about 2500 mL Potassium about 2 mEq Bicarbonate bath 34 Continue monitoring Objective - Vital Signs/Intake and Output Vital Signs (last 24 hours): Temp Pulse Resp BP Pulse Ox 97.6 F 113 H 20 114/80 97 11/13/16 08:12 11/13/16 08:12 11/13/16 08:12 11/13/16 08:12 11/13/16 08:12 - Medications Medications: Current Medications Acetaminophen (Tylenol 325mg Tab) 650 mg PO Q4 PRN PRN Reason: Fever >100.4 F Last Admin: 10/02/16 16:27 Dose: 650 mg Acetaminophen (Tylenol 325mg Tab) 650 mg PO Q4 PRN PRN Reason: Pain, moderate (4-7) Last Admin: 09/16/16 22:34 Dose: 650 mg Albuterol Sulfate (Albuterol 0.083% Inhal Barbie (2.5 Mg/3 Ml) Ud) 2.5 mg INH RQ4 PRN PRN Reason: Shortness of Breath Albuterol/Ipratropium (Duoneb 3 Mg/0.5 Mg (3 Ml) Ud) 3 ml INH RQ4 PRN PRN Reason: Shortness of Breath Last Admin: 11/11/16 07:39 Dose: 3 ml Aspirin (Ecotrin) 81 mg PO DAILY [facility] Last Admin: 11/13/16 08:43 Dose: 81 mg Atorvastatin Calcium (Lipitor) 40 mg PO DAILY [facility] Last Admin: 11/13/16 08:43 Dose: 40 mg Benzonatate (Tessalon Perles) 200 mg PO TID PRN PRN Reason: Cough Last Admin: 10/02/16 14:07 Dose: 200 mg Calcium Carbonate (Oscal) 500 mg PO BIDWM [facility] Last Admin: 11/13/16 08:42 Dose: 500 mg Cinacalcet (Sensipar) 30 mg PO DAILY [facility] Last Admin: 11/13/16 08:42 Dose: 30 mg Collagenase (Santyl) 1 applic TOP DAILY [facility] Last Admin: 11/12/16 08:27 Dose: 1 applic Diphenhydramine HCl (Benadryl) 25 mg PO Q6 PRN PRN Reason: Itching / Pruritus Last Admin: 11/12/16 08:34 Dose: 25 mg Epoetin Tha (Procrit) 20,000 unit IV [facility] [place] [facility] Last Admin: 11/13/16 08:47 Dose: Not Given Ergocalciferol (Drisdol 50,000 Intl Units Cap) 1 cap PO WED [facility] Last Admin: 11/13/16 08:42 Dose: 1 cap Fluconazole (Diflucan) 100 mg PO DAILY [facility] Last Admin: 11/13/16 08:41 Dose: 100 mg Gabapentin (Neurontin) 300 mg PO TID [facility] Last Admin: 11/13/16 08:41 Dose: 300 mg Hydrocortisone (Anusol-Hc) 1 applic [place] BID PRN PRN Reason: Inflammation Hydromorphone HCl (Dilaudid) 1 mg IVP Q3H PRN PRN Reason: Pain, severe (8-10) Last Admin: 11/13/16 08:32 Dose: 1 mg Amikacin Sulfate 250 mg/ (Sodium Chloride) 101 mls @ 100.609 mls/hr IVPB [facility] [place] [facility] Last Admin: 11/13/16 08:38 Dose: 100.609 mls/hr Meropenem 500 mg/ Sodium (Chloride) 100 mls @ 100 mls/hr IVPB DAILY@0100 [facility] Last Admin: 11/13/16 00:41 Dose: 100 mls/hr Sodium Chloride (Sodium Chloride 0.9%) 1,000 mls @ 10 mls/hr IV .Q24H [facility] Last Admin: 11/12/16 16:30 Dose: Not Given Daptomycin 650 mg/ Sodium (Chloride) 100 mls @ 100 mls/hr IV [facility] [place] Stop: 11/18/16 09:01 Insulin Detemir (Levemir) 26 units SC HS [facility] Last Admin: 11/12/16 22:20 Dose: 26 units Insulin Human Lispro (Humalog) 6 units SC AC [facility] Last Admin: 11/13/16 08:46 Dose: 6 units Lidocaine (Lidoderm) 1 ea TD DAILY [facility] Last Admin: 11/13/16 08:46 Dose: 1 ea Nystatin (Nystop Topical Powder) 1 applic TOP BID [facility] Last Admin: 11/13/16 08:47 Dose: 1 applic Ondansetron HCl (Zofran Inj) 4 mg IVP Q6 PRN PRN Reason: Nausea/Vomiting Last Admin: 09/19/16 10:26 Dose: 4 mg Pantoprazole Sodium (Protonix Ec Tab) 40 mg PO DAILY [facility] Last Admin: 11/13/16 08:42 Dose: 40 mg Sevelamer HCl (Renagel) 1,600 mg PO TID [facility] Last Admin: 11/13/16 08:40 Dose: 1,600 mg Topiramate (Topamax) 50 mg PO BID [facility] Last Admin: 11/13/16 08:41 Dose: 50 mg Vitamin B Complex/Vit C/Folic Acid (Nephro-Ajay) 1 tab PO DAILY [facility] Last Admin: 11/13/16 08:42 Dose: 1 tab - Labs Labs: 11/06/16 08:09 11/04/16 17:26 PT 17.6 Seconds (9.8-13.1) H 10/15/16 07:00 INR 1.5 (0.9-1.2) H 10/15/16 07:00 APTT 36.6 Seconds (25.6-37.1) 10/15/16 07:00 Assessment and Plan (1) ESRD (end stage renal disease) Status: Chronic (2) Cellulitis of leg Status: Chronic
--- NOTE | 2016-11-13 11:17 | CP.PCM.PN ---
Subjective - Date & Time of Evaluation Date of Evaluation: 11/13/16 Time of Evaluation: 11:10 - Subjective Subjective: Notes by consultants appreciated. Patient had a good physical therapy session this morning and was able to stand ( with assistance) on left BK prosthesis for a few moments. She is now in a chair and has no pain. No cough or fevers. We are awaiting repeat wound cultures, but because the wound is not healing as well and as fast as desired Dr. Lemon (ID) has discontinued Zosyn and Zyvox and substituted IV Daptomycin. She continues on IV meropenem and po fluconazole. CT with IV contrast is to be done this morning to look for possible osteomyelitis of the right residual limb. For hemodialysis after the CT scan. Blood work CBC and CMP to be done at that time. Objective - Vital Signs/Intake and Output Vital Signs (last 24 hours): Temp Pulse Resp BP Pulse Ox 97.6 F 113 H 20 114/80 97 11/13/16 08:12 11/13/16 08:12 11/13/16 08:12 11/13/16 08:12 11/13/16 08:12 - Medications Medications: Current Medications Acetaminophen (Tylenol 325mg Tab) 650 mg PO Q4 PRN PRN Reason: Fever >100.4 F Last Admin: 10/02/16 16:27 Dose: 650 mg Acetaminophen (Tylenol 325mg Tab) 650 mg PO Q4 PRN PRN Reason: Pain, moderate (4-7) Last Admin: 09/16/16 22:34 Dose: 650 mg Albuterol Sulfate (Albuterol 0.083% Inhal Barbie (2.5 Mg/3 Ml) Ud) 2.5 mg INH RQ4 PRN PRN Reason: Shortness of Breath Albuterol/Ipratropium (Duoneb 3 Mg/0.5 Mg (3 Ml) Ud) 3 ml INH RQ4 PRN PRN Reason: Shortness of Breath Last Admin: 11/11/16 07:39 Dose: 3 ml Aspirin (Ecotrin) 81 mg PO DAILY [facility] Last Admin: 11/13/16 08:43 Dose: 81 mg Atorvastatin Calcium (Lipitor) 40 mg PO DAILY [facility] Last Admin: 11/13/16 08:43 Dose: 40 mg Benzonatate (Tessalon Perles) 200 mg PO TID PRN PRN Reason: Cough Last Admin: 10/02/16 14:07 Dose: 200 mg Calcium Carbonate (Oscal) 500 mg PO BIDWM [facility] Last Admin: 11/13/16 08:42 Dose: 500 mg Cinacalcet (Sensipar) 30 mg PO DAILY [facility] Last Admin: 11/13/16 08:42 Dose: 30 mg Collagenase (Santyl) 1 applic TOP DAILY [facility] Last Admin: 11/12/16 08:27 Dose: 1 applic Diphenhydramine HCl (Benadryl) 25 mg PO Q6 PRN PRN Reason: Itching / Pruritus Last Admin: 11/12/16 08:34 Dose: 25 mg Epoetin Tha (Procrit) 20,000 unit IV [facility] [place] Last Admin: 11/13/16 08:47 Dose: Not Given Ergocalciferol (Drisdol 50,000 Intl Units Cap) 1 cap PO WED [facility] Last Admin: 11/13/16 08:42 Dose: 1 cap Fluconazole (Diflucan) 100 mg PO DAILY [facility] Last Admin: 11/13/16 08:41 Dose: 100 mg Gabapentin (Neurontin) 300 mg PO TID [facility] Last Admin: 11/13/16 08:41 Dose: 300 mg Hydrocortisone (Anusol-Hc) 1 applic [place] BID PRN PRN Reason: Inflammation Hydromorphone HCl (Dilaudid) 1 mg IVP Q3H PRN PRN Reason: Pain, severe (8-10) Last Admin: 11/13/16 08:32 Dose: 1 mg Amikacin Sulfate 250 mg/ (Sodium Chloride) 101 mls @ 100.609 mls/hr IVPB [facility] [place] Last Admin: 11/13/16 08:38 Dose: 100.609 mls/hr Meropenem 500 mg/ Sodium (Chloride) 100 mls @ 100 mls/hr IVPB DAILY@0100 [facility] Last Admin: 11/13/16 00:41 Dose: 100 mls/hr Sodium Chloride (Sodium Chloride 0.9%) 1,000 mls @ 10 mls/hr IV .Q24H [facility] Last Admin: 11/12/16 16:30 Dose: Not Given Daptomycin 650 mg/ Sodium (Chloride) 100 mls @ 100 mls/hr IV [facility] [place] Stop: 11/18/16 09:01 Last Admin: 11/13/16 11:07 Dose: 100 mls/hr Insulin Detemir (Levemir) 26 units SC HS [facility] Last Admin: 11/12/16 22:20 Dose: 26 units Insulin Human Lispro (Humalog) 6 units SC AC [facility] Last Admin: 11/13/16 08:46 Dose: 6 units Lidocaine (Lidoderm) 1 ea TD DAILY [facility] Last Admin: 11/13/16 08:46 Dose: 1 ea Nystatin (Nystop Topical Powder) 1 applic TOP BID [facility] Last Admin: 11/13/16 08:47 Dose: 1 applic Ondansetron HCl (Zofran Inj) 4 mg IVP Q6 PRN PRN Reason: Nausea/Vomiting Last Admin: 09/19/16 10:26 Dose: 4 mg Pantoprazole Sodium (Protonix Ec Tab) 40 mg PO DAILY [facility] Last Admin: 11/13/16 08:42 Dose: 40 mg Sevelamer HCl (Renagel) 1,600 mg PO TID [facility] Last Admin: 11/13/16 08:40 Dose: 1,600 mg Topiramate (Topamax) 50 mg PO BID [facility] Last Admin: 11/13/16 08:41 Dose: 50 mg Vitamin B Complex/Vit C/Folic Acid (Nephro-Ajay) 1 tab PO DAILY [facility] Last Admin: 11/13/16 08:42 Dose: 1 tab - Labs Labs: 11/06/16 08:09 11/04/16 17:26 PT 17.6 Seconds (9.8-13.1) H 10/15/16 07:00 INR 1.5 (0.9-1.2) H 10/15/16 07:00 APTT 36.6 Seconds (25.6-37.1) 10/15/16 07:00 - Constitutional Appears: No Acute Distress - Head Exam Head Exam: NORMAL INSPECTION - Eye Exam Eye Exam: Normal appearance - ENT Exam ENT Exam: Mucous Membranes Moist - Neck Exam Neck Exam: Normal Inspection Additional comments: Right subclavian Permacath intact. - Respiratory Exam Respiratory Exam: Clear to Ausculation Bilateral, NORMAL BREATHING PATTERN - Cardiovascular Exam Cardiovascular Exam: REGULAR RHYTHM, +S1, +S2 - GI/Abdominal Exam GI & Abdominal Exam: Soft - Extremities Exam Additional comments: Dressing dry and intact R residual limb. L femoral vein PICC line intact. All other extremities as before. - Back Exam Back Exam: NORMAL INSPECTION - Neurological Exam Neurological Exam: Alert, Awake, CN II-XII Intact, Oriented x3 - Psychiatric Exam Psychiatric exam: Normal Affect, Normal Mood - Skin Skin Exam: Dry, Normal Color, Warm Assessment and Plan (1) Status post below knee amputation of right lower extremity Assessment & Plan: Making slow progress - antibiotics just changed (see subjective = above). Await results of wound culture and CT w contrast of right lower extremity. Status: Acute (2) ESRD (end stage renal disease) on dialysis Status: Chronic (3) DM type 2 (diabetes mellitus, type 2) Status: Chronic (4) Coagulopathy Status: Chronic (5) Peripheral arterial occlusive disease Status: Chronic
[2016-11-13] MEDS ORDERED: Iodixanol 320 MG/ML 100 ML BOTTLE IV ONE (13:28)
[2016-11-13] MEDS ORDERED: Sodium Chloride 0.9% 50 ML IV ONE (13:29)
[2016-11-13] MEDS: Sodium Chloride 0.9% 1,000 ML IV SCH (16:47)
[2016-11-13] MEDS: Santyl Collagenase OINTMENT TOP SCH (16:47)
--- NOTE | 2016-11-13 20:35 | CT ---
EXAM: CT Right Lower Extremity With Intravenous Contrast CLINICAL HISTORY: 46 years old, female; Signs and symptoms; Cellulitis; Knee and thigh; Right; Prior surgery; Surgery type: Rt lower limb; Additional info: R/O osteomyelitis, do from above knee through stump TECHNIQUE: Axial computed tomography images of the right lower extremity with intravenous contrast. This CT exam was performed using one or more of the following dose reduction techniques: automated exposure control, adjustment of the mA and/or kV according to patient size, and/or use of iterative reconstruction technique. Coronal and sagittal reformatted images were created and reviewed. CONTRAST: 100 mL of [id number] administered intravenously. EXAM DATE/TIME: 11/13/2016 11:30 AM COMPARISON: Prior MRI of the right knee of 11/01/2016 FINDINGS: BONES/JOINTS: Multifocal, patchy, areas of lucency and sclerosis are seen in the distal femur, proximal tibia, and patella, about the knee, with a somewhat permeative appearance. There is no evidence of associated aggressive periosteal reaction or large areas of cortical destruction. Small knee joint effusion is seen. Old screw tracts from prior metallic hardware noted in the right proximal femur. Evidence of prior [id number] amputation. No acute fractures are seen. No evidence of acute dislocation. SOFT TISSUES: Diffuse fluid/edema seen in the distal right leg soft tissues, at the level of the stump. There is a small amount of air in the stump soft tissues anteriorly and laterally. This has a linear distribution, and it could be iatrogenic, such as related to recent debridement, or it could be related to a soft tissue ulceration. There is no evidence of diffuse soft tissue gas. No evidence of focal soft tissue fluid collection/abscess. VASCULATURE: Extensive atherosclerotic calcification. IMPRESSION: - Patchy areas of lucency and sclerosis in the distal femur, proximal tibia, and patella, about the knee, with no aggressive periosteal reaction or large areas of cortical destruction seen. Findings could potentially be a sign of early acute osteomyelitis. MRI of the knee would be helpful for further evaluation, as clinically indicated. - Soft tissue edema at the level of the stump, presumably secondary to cellulitis. There is a small amount of soft tissue air. This air could be iatrogenic or related to a soft tissue ulceration, although is difficult to definitely rule out infection with gas producing organisms. Recommend clinical correlation. No evidence of diffuse soft tissue gas or of a soft tissue abscess. - Small knee joint effusion. - See above for remaining findings.
[2016-11-13] MEDS: Insulin Detemir 100 Units/ml Inj SC SCH (22:43)
--- NOTE | 2016-11-13 23:06 | CP.PCM.PN ---
Subjective - Date & Time of Evaluation Date of Evaluation: 11/13/16 Time of Evaluation: 20:35 - Subjective Subjective: Abnormal Cultures from the wound showing Gm Negative Bacilli which might be related to the previous Culture growing Klebsiella. This might explain her right Stump of BKA pain. Her Antibiotics will be changed according to the Culture sensitivity results. Preliminary change will include a change to Gentamycin from Amikacin. She might receive Tygacil. There is a threat of residual Osteomyelitis. CT Right knee stump with contrast results are awaited. She is receiving Hemodialysis. There is no reported seizures and she is receiving Topamax 50 mg BID. She is having Tachycardia and the rest of the VS are Normal. Objective - Vital Signs/Intake and Output Vital Signs (last 24 hours): Temp Pulse Resp BP Pulse Ox 98 F 116 H 20 125/84 98 11/13/16 16:25 11/13/16 16:25 11/13/16 16:25 11/13/16 16:25 11/13/16 16:25 - Medications Medications: Current Medications Acetaminophen (Tylenol 325mg Tab) 650 mg PO Q4 PRN PRN Reason: Fever >100.4 F Last Admin: 10/02/16 16:27 Dose: 650 mg Acetaminophen (Tylenol 325mg Tab) 650 mg PO Q4 PRN PRN Reason: Pain, moderate (4-7) Last Admin: 09/16/16 22:34 Dose: 650 mg Albuterol Sulfate (Albuterol 0.083% Inhal Barbie (2.5 Mg/3 Ml) Ud) 2.5 mg INH RQ4 PRN PRN Reason: Shortness of Breath Albuterol/Ipratropium (Duoneb 3 Mg/0.5 Mg (3 Ml) Ud) 3 ml INH RQ4 PRN PRN Reason: Shortness of Breath Last Admin: 11/11/16 07:39 Dose: 3 ml Aspirin (Ecotrin) 81 mg PO DAILY [facility] Last Admin: 11/13/16 08:43 Dose: 81 mg Atorvastatin Calcium (Lipitor) 40 mg PO DAILY [facility] Last Admin: 11/13/16 08:43 Dose: 40 mg Benzonatate (Tessalon Perles) 200 mg PO TID PRN PRN Reason: Cough Last Admin: 10/02/16 14:07 Dose: 200 mg Calcium Carbonate (Oscal) 500 mg PO BIDWM [facility] Last Admin: 11/13/16 16:45 Dose: 500 mg Cinacalcet (Sensipar) 30 mg PO DAILY [facility] Last Admin: 11/13/16 08:42 Dose: 30 mg Collagenase (Santyl) 1 applic TOP DAILY [facility] Last Admin: 11/13/16 16:47 Dose: 1 applic Diphenhydramine HCl (Benadryl) 25 mg PO Q6 PRN PRN Reason: Itching / Pruritus Last Admin: 11/12/16 08:34 Dose: 25 mg Epoetin Tha (Procrit) 20,000 unit IV [facility] Last Admin: 11/13/16 08:47 Dose: Not Given Ergocalciferol (Drisdol 50,000 Intl Units Cap) 1 cap PO WED [facility] Last Admin: 11/13/16 08:42 Dose: 1 cap Fluconazole (Diflucan) 100 mg PO DAILY [facility] Last Admin: 11/13/16 08:41 Dose: 100 mg Gabapentin (Neurontin) 300 mg PO TID [facility] Last Admin: 11/13/16 16:46 Dose: 300 mg Hydrocortisone (Anusol-Hc) 1 applic [place] BID PRN PRN Reason: Inflammation Hydromorphone HCl (Dilaudid) 1 mg IVP Q3H PRN PRN Reason: Pain, severe (8-10) Last Admin: 11/13/16 22:41 Dose: 1 mg Meropenem 500 mg/ Sodium (Chloride) 100 mls @ 100 mls/hr IVPB DAILY@0100 [facility] Last Admin: 11/13/16 00:41 Dose: 100 mls/hr Sodium Chloride (Sodium Chloride 0.9%) 1,000 mls @ 10 mls/hr IV .Q24H [facility] Last Admin: 11/13/16 16:47 Dose: Not Given Daptomycin 650 mg/ Sodium (Chloride) 100 mls @ 100 mls/hr IV [facility] Stop: 11/18/16 09:01 Last Admin: 11/13/16 11:07 Dose: 100 mls/hr Gentamicin Sulfate/Sodium Chloride (Gentamicin 100mg/100ml Ns) 100 mg in 100 mls @ 100 mls/hr IVPB [facility] Insulin Detemir (Levemir) 26 units SC HS [facility] Last Admin: 11/13/16 22:43 Dose: 26 units Insulin Human Lispro (Humalog) 6 units SC AC [facility] Last Admin: 11/13/16 17:18 Dose: 6 units Lidocaine (Lidoderm) 1 ea TD DAILY [facility] Last Admin: 11/13/16 08:46 Dose: 1 ea Nystatin (Nystop Topical Powder) 1 applic TOP BID [facility] Last Admin: 11/13/16 16:44 Dose: 1 applic Ondansetron HCl (Zofran Inj) 4 mg IVP Q6 PRN PRN Reason: Nausea/Vomiting Last Admin: 09/19/16 10:26 Dose: 4 mg Pantoprazole Sodium (Protonix Ec Tab) 40 mg PO DAILY [facility] Last Admin: 11/13/16 08:42 Dose: 40 mg Sevelamer HCl (Renagel) 1,600 mg PO TID [facility] Last Admin: 11/13/16 16:45 Dose: 1,600 mg Topiramate (Topamax) 50 mg PO BID [facility] Last Admin: 11/13/16 16:45 Dose: 50 mg Vitamin B Complex/Vit C/Folic Acid (Nephro-Ajay) 1 tab PO DAILY [facility] Last Admin: 11/13/16 08:42 Dose: 1 tab - Labs Labs: 11/06/16 08:09 11/04/16 17:26 PT 17.6 Seconds (9.8-13.1) H 10/15/16 07:00 INR 1.5 (0.9-1.2) H 10/15/16 07:00 APTT 36.6 Seconds (25.6-37.1) 10/15/16 07:00 Assessment and Plan (1) Diabetes Status: Chronic (2) ESRD (end stage renal disease) Status: Chronic (3) Cellulitis of leg Status: Chronic (4) Hyperlipidemia Status: Chronic (5) Back pain Status: Acute (6) Bacteremia due to Gram-negative bacteria Status: Acute (7) Diabetes mellitus type 2 with peripheral artery disease Status: Acute (8) PVD (peripheral vascular disease) Status: Acute (9) Osteomyelitis of right foot Status: Acute (10) Fungal infection right foot Status: Acute
[2016-11-14] MEDS: Meropenem 500 MG in Sodium Chloride 0.9% 100 ML IVPB SCH (01:04)
[2016-11-14] MEDS: Insulin Lispro (humaLOG) 100 Units/ml Inj SC SCH ×3 (09:00→17:38)
[2016-11-14] MEDS: Lidocaine 5% Patch TD SCH (09:53)
[2016-11-14] MEDS: Multivitamin Vitamin B Complex (Nephro-Vite) Tab PO SCH (09:54)
[2016-11-14] MEDS: Pantoprazole 40 mg EC Tab PO SCH (09:56)
[2016-11-14] MEDS: Santyl Collagenase OINTMENT TOP SCH (10:01)
--- NOTE | 2016-11-14 11:44 | CP.PCM.PN ---
<GermainSb - Last Filed: 11/14/16 11:41> Subjective - Date & Time of Evaluation Date of Evaluation: 11/14/16 Time of Evaluation: 11:41 - Subjective Subjective: Surgery for Dr. Mccormack Pt s&e. Resting comfortably. OVIDIO. Objective - Vital Signs/Intake and Output Vital Signs (last 24 hours): Temp Pulse Resp BP Pulse Ox 97.8 F 114 H 18 109/54 L 96 11/14/16 07:44 11/14/16 07:44 11/14/16 07:44 11/14/16 07:44 11/14/16 07:44 - Medications Medications: Current Medications Acetaminophen (Tylenol 325mg Tab) 650 mg PO Q4 PRN PRN Reason: Fever >100.4 F Last Admin: 10/02/16 16:27 Dose: 650 mg Acetaminophen (Tylenol 325mg Tab) 650 mg PO Q4 PRN PRN Reason: Pain, moderate (4-7) Last Admin: 09/16/16 22:34 Dose: 650 mg Albuterol Sulfate (Albuterol 0.083% Inhal Barbie (2.5 Mg/3 Ml) Ud) 2.5 mg INH RQ4 PRN PRN Reason: Shortness of Breath Albuterol/Ipratropium (Duoneb 3 Mg/0.5 Mg (3 Ml) Ud) 3 ml INH RQ4 PRN PRN Reason: Shortness of Breath Last Admin: 11/11/16 07:39 Dose: 3 ml Aspirin (Ecotrin) 81 mg PO DAILY [facility] Last Admin: 11/14/16 09:55 Dose: 81 mg Atorvastatin Calcium (Lipitor) 40 mg PO DAILY [facility] Last Admin: 11/14/16 09:52 Dose: 40 mg Benzonatate (Tessalon Perles) 200 mg PO TID PRN PRN Reason: Cough Last Admin: 10/02/16 14:07 Dose: 200 mg Calcium Carbonate (Oscal) 500 mg PO BIDWM [facility] Last Admin: 11/14/16 09:58 Dose: 500 mg Cinacalcet (Sensipar) 30 mg PO DAILY [facility] Last Admin: 11/14/16 09:53 Dose: 30 mg Collagenase (Santyl) 1 applic TOP DAILY [facility] Last Admin: 11/14/16 10:01 Dose: 1 applic Diphenhydramine HCl (Benadryl) 25 mg PO Q6 PRN PRN Reason: Itching / Pruritus Last Admin: 11/12/16 08:34 Dose: 25 mg Epoetin Tha (Procrit) 20,000 unit IV [facility] Last Admin: 11/13/16 08:47 Dose: Not Given Ergocalciferol (Drisdol 50,000 Intl Units Cap) 1 cap PO WED [facility] Last Admin: 11/13/16 08:42 Dose: 1 cap Fluconazole (Diflucan) 100 mg PO DAILY [facility] Last Admin: 11/14/16 09:55 Dose: 100 mg Gabapentin (Neurontin) 300 mg PO TID [facility] Last Admin: 11/14/16 09:55 Dose: 300 mg Hydrocortisone (Anusol-Hc) 1 applic [place] BID PRN PRN Reason: Inflammation Hydromorphone HCl (Dilaudid) 1 mg IVP Q3H PRN PRN Reason: Pain, severe (8-10) Last Admin: 11/14/16 11:09 Dose: 1 mg Meropenem 500 mg/ Sodium (Chloride) 100 mls @ 100 mls/hr IVPB DAILY@0100 [facility] Last Admin: 11/14/16 01:04 Dose: 100 mls/hr Sodium Chloride (Sodium Chloride 0.9%) 1,000 mls @ 10 mls/hr IV .Q24H [facility] Last Admin: 11/13/16 16:47 Dose: Not Given Daptomycin 650 mg/ Sodium (Chloride) 100 mls @ 100 mls/hr IV [facility] Stop: 11/18/16 09:01 Last Admin: 11/13/16 11:07 Dose: 100 mls/hr Gentamicin Sulfate/Sodium Chloride (Gentamicin 100mg/100ml Ns) 100 mg in 100 mls @ 100 mls/hr IVPB [facility] Insulin Detemir (Levemir) 26 units SC HS [facility] Last Admin: 11/13/16 22:43 Dose: 26 units Insulin Human Lispro (Humalog) 6 units SC AC [facility] Last Admin: 11/14/16 09:00 Dose: 6 units Lidocaine (Lidoderm) 1 ea TD DAILY [facility] Last Admin: 11/14/16 09:53 Dose: 1 ea Nystatin (Nystop Topical Powder) 1 applic TOP BID [facility] Last Admin: 11/14/16 10:00 Dose: 1 applic Ondansetron HCl (Zofran Inj) 4 mg IVP Q6 PRN PRN Reason: Nausea/Vomiting Last Admin: 09/19/16 10:26 Dose: 4 mg Pantoprazole Sodium (Protonix Ec Tab) 40 mg PO DAILY [facility] Last Admin: 11/14/16 09:56 Dose: 40 mg Sevelamer HCl (Renagel) 1,600 mg PO TID [facility] Last Admin: 11/14/16 09:52 Dose: 1,600 mg Topiramate (Topamax) 50 mg PO BID [facility] Last Admin: 11/14/16 09:53 Dose: 50 mg Vitamin B Complex/Vit C/Folic Acid (Nephro-Ajay) 1 tab PO DAILY [facility] Last Admin: 11/14/16 09:54 Dose: 1 tab - Labs Labs: 11/06/16 08:09 11/04/16 17:26 PT 17.6 Seconds (9.8-13.1) H 10/15/16 07:00 INR 1.5 (0.9-1.2) H 10/15/16 07:00 APTT 36.6 Seconds (25.6-37.1) 10/15/16 07:00 - Constitutional Appears: No Acute Distress - Head Exam Head Exam: ATRAUMATIC, NORMAL INSPECTION, NORMOCEPHALIC - Eye Exam Eye Exam: EOMI, Normal appearance, PERRL Pupil Exam: NORMAL ACCOMODATION, PERRL - ENT Exam ENT Exam: Mucous Membranes Moist, Normal Exam - Neck Exam Neck Exam: Full ROM, Normal Inspection. absent: Lymphadenopathy - Respiratory Exam Respiratory Exam: Clear to Ausculation Bilateral, NORMAL BREATHING PATTERN - Cardiovascular Exam Cardiovascular Exam: REGULAR RHYTHM, +S1, +S2. absent: Murmur - GI/Abdominal Exam GI & Abdominal Exam: Soft, Normal Bowel Sounds. absent: Distended, Firm, Guarding, Tenderness - Extremities Exam Extremities Exam: absent: Normal Inspection Additional comments: b/l bka. R leg dressing in place. - Back Exam Back Exam: NORMAL INSPECTION - Neurological Exam Neurological Exam: Alert, Awake, CN II-XII Intact, Oriented x3 - Psychiatric Exam Psychiatric exam: Normal Affect, Normal Mood - Skin Skin Exam: Erythema, Warm Assessment and Plan - Assessment and Plan (Free Text) Assessment: 46yo F with PMHx of HTN, ESRD, PVD. General Surgery following s/p Right BKA on . POD 44. - 11/02: Wound Cx Right Stump - Multi drug resistant Klebsiella - 11/11: Wound Cx Right Stump - Klebsiella penudomonas - CT: possible osteo - Continue dressing changes as per wound care team, continue chemical debridement. - Continue Medical management - Pain management. - IV Abx as per ID Discussed case with Dr. Mccormack. <Raffy Mccormack - Last Filed: 11/14/16 18:16> Objective - Vital Signs/Intake and Output Vital Signs (last 24 hours): Temp Pulse Resp BP Pulse Ox 98.7 F 86 18 109/54 L 97 11/14/16 16:11 11/14/16 16:11 11/14/16 16:11 11/14/16 07:44 11/14/16 16:11 - Medications Medications: Current Medications Acetaminophen (Tylenol 325mg Tab) 650 mg PO Q4 PRN PRN Reason: Fever >100.4 F Last Admin: 10/02/16 16:27 Dose: 650 mg Acetaminophen (Tylenol 325mg Tab) 650 mg PO Q4 PRN PRN Reason: Pain, moderate (4-7) Last Admin: 09/16/16 22:34 Dose: 650 mg Albuterol Sulfate (Albuterol 0.083% Inhal Barbie (2.5 Mg/3 Ml) Ud) 2.5 mg INH RQ4 PRN PRN Reason: Shortness of Breath Albuterol/Ipratropium (Duoneb 3 Mg/0.5 Mg (3 Ml) Ud) 3 ml INH RQ4 PRN PRN Reason: Shortness of Breath Last Admin: 11/11/16 07:39 Dose: 3 ml Aspirin (Ecotrin) 81 mg PO DAILY [facility] Last Admin: 11/14/16 09:55 Dose: 81 mg Atorvastatin Calcium (Lipitor) 40 mg PO DAILY [facility] Last Admin: 11/14/16 09:52 Dose: 40 mg Benzonatate (Tessalon Perles) 200 mg PO TID PRN PRN Reason: Cough Last Admin: 10/02/16 14:07 Dose: 200 mg Calcium Carbonate (Oscal) 500 mg PO BIDWM [facility] Last Admin: 11/14/16 17:36 Dose: 500 mg Cinacalcet (Sensipar) 30 mg PO DAILY [facility] Last Admin: 11/14/16 09:53 Dose: 30 mg Collagenase (Santyl) 1 applic TOP DAILY [facility] Last Admin: 11/14/16 10:01 Dose: 1 applic Diphenhydramine HCl (Benadryl) 25 mg PO Q6 PRN PRN Reason: Itching / Pruritus Last Admin: 11/12/16 08:34 Dose: 25 mg Epoetin Tha (Procrit) 20,000 unit IV [facility] Last Admin: 11/13/16 08:47 Dose: Not Given Ergocalciferol (Drisdol 50,000 Intl Units Cap) 1 cap PO WED [facility] Last Admin: 11/13/16 08:42 Dose: 1 cap Fluconazole (Diflucan) 100 mg PO DAILY [facility] Last Admin: 11/14/16 09:55 Dose: 100 mg Gabapentin (Neurontin) 300 mg PO TID [facility] Last Admin: 11/14/16 17:37 Dose: 300 mg Hydrocortisone (Anusol-Hc) 1 applic [place] BID PRN PRN Reason: Inflammation Hydromorphone HCl (Dilaudid) 1 mg IVP Q3H PRN PRN Reason: Pain, severe (8-10) Last Admin: 11/14/16 15:25 Dose: 1 mg Meropenem 500 mg/ Sodium (Chloride) 100 mls @ 100 mls/hr IVPB DAILY@0100 [facility] Last Admin: 11/14/16 01:04 Dose: 100 mls/hr Sodium Chloride (Sodium Chloride 0.9%) 1,000 mls @ 10 mls/hr IV .Q24H [facility] Last Admin: 11/14/16 17:40 Dose: Not Given Daptomycin 650 mg/ Sodium (Chloride) 100 mls @ 100 mls/hr IV [facility] Stop: 11/18/16 09:01 Last Admin: 11/13/16 11:07 Dose: 100 mls/hr Gentamicin Sulfate/Sodium Chloride (Gentamicin 100mg/100ml Ns) 100 mg in 100 mls @ 100 mls/hr IVPB [facility] Insulin Detemir (Levemir) 26 units SC HS [facility] Last Admin: 11/13/16 22:43 Dose: 26 units Insulin Human Lispro (Humalog) 6 units SC AC [facility] Last Admin: 11/14/16 17:38 Dose: 6 units Lidocaine (Lidoderm) 1 ea TD DAILY [facility] Last Admin: 11/14/16 09:53 Dose: 1 ea Nystatin (Nystop Topical Powder) 1 applic TOP BID [facility] Last Admin: 11/14/16 17:39 Dose: 1 applic Ondansetron HCl (Zofran Inj) 4 mg IVP Q6 PRN PRN Reason: Nausea/Vomiting Last Admin: 09/19/16 10:26 Dose: 4 mg Pantoprazole Sodium (Protonix Ec Tab) 40 mg PO DAILY [facility] Last Admin: 11/14/16 09:56 Dose: 40 mg Sevelamer HCl (Renagel) 1,600 mg PO TID [facility] Last Admin: 11/14/16 17:36 Dose: 1,600 mg Topiramate (Topamax) 50 mg PO BID [facility] Last Admin: 11/14/16 17:37 Dose: 50 mg Vitamin B Complex/Vit C/Folic Acid (Nephro-Ajay) 1 tab PO DAILY [facility] Last Admin: 11/14/16 09:54 Dose: 1 tab - Labs Labs: 11/06/16 08:09 11/04/16 17:26 PT 17.6 Seconds (9.8-13.1) H 10/15/16 07:00 INR 1.5 (0.9-1.2) H 10/15/16 07:00 APTT 36.6 Seconds (25.6-37.1) 10/15/16 07:00 Assessment and Plan - Assessment and Plan (Free Text) Plan: Patient seen and examined. She has no acute complaints at present. Patient is afebrile with stable vital signs. Clinically she is essentially unchanged with no systemic signs of infection. CT findings are noted. Right BKA stump shows signs of infection. We will plan for surgical washout, debridement, possible BKA revision within next few days. We might need pursue additional workup to determine whether patient has evidence of osteomyelitis in her right femur which will affect surgical management and chances for BKA salvage.
--- NOTE | 2016-11-14 15:23 | CP.PCM.PN ---
Subjective - Date & Time of Evaluation Date of Evaluation: 11/14/16 Time of Evaluation: 15:17 - Subjective Subjective: Patient is sad and tearful today. This has been a long hard course for her, and I suspect she is fearing a need for further surgery on the right leg. She federico down to the street in a manual wheelchair as part of her physical therapy. She was able to propel herself for a short distance but tired easily. It was Cleveland Mckeon's opinion that if an above the knee amputation were necessary she would not walk again. . . The CT scan of the right lower extremity is difficult to interpret and ominously reports "possible early acute osteomyelitis." I will await having Dr. Mccormack review this study with the radiologist. Would cultures are positive for MDR Klebsiella pneumoniae. There is sensitivity to gentaminic (which the patient is on) and to tigecycline (which Dr. Lemon is considering). The wound has not been redressed yet today. The current dressing is dry and intact. No fevers, no increased pain. Objective - Vital Signs/Intake and Output Vital Signs (last 24 hours): Temp Pulse Resp BP Pulse Ox 97.8 F 114 H 18 109/54 L 96 11/14/16 07:44 11/14/16 07:44 11/14/16 07:44 11/14/16 07:44 11/14/16 07:44 - Medications Medications: Current Medications Acetaminophen (Tylenol 325mg Tab) 650 mg PO Q4 PRN PRN Reason: Fever >100.4 F Last Admin: 10/02/16 16:27 Dose: 650 mg Acetaminophen (Tylenol 325mg Tab) 650 mg PO Q4 PRN PRN Reason: Pain, moderate (4-7) Last Admin: 09/16/16 22:34 Dose: 650 mg Albuterol Sulfate (Albuterol 0.083% Inhal Barbie (2.5 Mg/3 Ml) Ud) 2.5 mg INH RQ4 PRN PRN Reason: Shortness of Breath Albuterol/Ipratropium (Duoneb 3 Mg/0.5 Mg (3 Ml) Ud) 3 ml INH RQ4 PRN PRN Reason: Shortness of Breath Last Admin: 11/11/16 07:39 Dose: 3 ml Aspirin (Ecotrin) 81 mg PO DAILY [facility] Last Admin: 11/14/16 09:55 Dose: 81 mg Atorvastatin Calcium (Lipitor) 40 mg PO DAILY [facility] Last Admin: 11/14/16 09:52 Dose: 40 mg Benzonatate (Tessalon Perles) 200 mg PO TID PRN PRN Reason: Cough Last Admin: 10/02/16 14:07 Dose: 200 mg Calcium Carbonate (Oscal) 500 mg PO BIDWM [facility] Last Admin: 11/14/16 09:58 Dose: 500 mg Cinacalcet (Sensipar) 30 mg PO DAILY [facility] Last Admin: 11/14/16 09:53 Dose: 30 mg Collagenase (Santyl) 1 applic TOP DAILY [facility] Last Admin: 11/14/16 10:01 Dose: 1 applic Diphenhydramine HCl (Benadryl) 25 mg PO Q6 PRN PRN Reason: Itching / Pruritus Last Admin: 11/12/16 08:34 Dose: 25 mg Epoetin Tha (Procrit) 20,000 unit IV MWF [facility] Last Admin: 11/13/16 08:47 Dose: Not Given Ergocalciferol (Drisdol 50,000 Intl Units Cap) 1 cap PO WED [facility] Last Admin: 11/13/16 08:42 Dose: 1 cap Fluconazole (Diflucan) 100 mg PO DAILY [facility] Last Admin: 11/14/16 09:55 Dose: 100 mg Gabapentin (Neurontin) 300 mg PO TID [facility] Last Admin: 11/14/16 12:51 Dose: 300 mg Hydrocortisone (Anusol-Hc) 1 applic [place] BID PRN PRN Reason: Inflammation Hydromorphone HCl (Dilaudid) 1 mg IVP Q3H PRN PRN Reason: Pain, severe (8-10) Last Admin: 11/14/16 11:09 Dose: 1 mg Meropenem 500 mg/ Sodium (Chloride) 100 mls @ 100 mls/hr IVPB DAILY@0100 [facility] Last Admin: 11/14/16 01:04 Dose: 100 mls/hr Sodium Chloride (Sodium Chloride 0.9%) 1,000 mls @ 10 mls/hr IV .Q24H [facility] Last Admin: 11/13/16 16:47 Dose: Not Given Daptomycin 650 mg/ Sodium (Chloride) 100 mls @ 100 mls/hr IV MWF [facility] Stop: 11/18/16 09:01 Last Admin: 11/13/16 11:07 Dose: 100 mls/hr Gentamicin Sulfate/Sodium Chloride (Gentamicin 100mg/100ml Ns) 100 mg in 100 mls @ 100 mls/hr IVPB MWF [facility] Insulin Detemir (Levemir) 26 units SC HS [facility] Last Admin: 11/13/16 22:43 Dose: 26 units Insulin Human Lispro (Humalog) 6 units SC AC [facility] Last Admin: 11/14/16 12:50 Dose: 6 units Lidocaine (Lidoderm) 1 ea TD DAILY [facility] Last Admin: 11/14/16 09:53 Dose: 1 ea Nystatin (Nystop Topical Powder) 1 applic TOP BID [facility] Last Admin: 11/14/16 10:00 Dose: 1 applic Ondansetron HCl (Zofran Inj) 4 mg IVP Q6 PRN PRN Reason: Nausea/Vomiting Last Admin: 09/19/16 10:26 Dose: 4 mg Pantoprazole Sodium (Protonix Ec Tab) 40 mg PO DAILY [facility] Last Admin: 11/14/16 09:56 Dose: 40 mg Sevelamer HCl (Renagel) 1,600 mg PO TID [facility] Last Admin: 11/14/16 12:51 Dose: 1,600 mg Topiramate (Topamax) 50 mg PO BID [facility] Last Admin: 11/14/16 09:53 Dose: 50 mg Vitamin B Complex/Vit C/Folic Acid (Nephro-Ajay) 1 tab PO DAILY [facility] Last Admin: 11/14/16 09:54 Dose: 1 tab - Labs Labs: 11/06/16 08:09 11/04/16 17:26 PT 17.6 Seconds (9.8-13.1) H 10/15/16 07:00 INR 1.5 (0.9-1.2) H 10/15/16 07:00 APTT 36.6 Seconds (25.6-37.1) 10/15/16 07:00 Microbiology 11/11/16 Unknown Leg - Right Gram Stain - Final 11/11/16 Unknown Leg - Right Wound Culture - Final Klebsiella Pneumoniae 11/11/16 Unknown Leg - Right Gram Stain - Final 11/11/16 Unknown Leg - Right Wound Culture - Final Klebsiella Pneumoniae Ssp Pneu - Constitutional Appears: Other (Sad and tearful.) - Head Exam Head Exam: NORMAL INSPECTION - ENT Exam ENT Exam: Mucous Membranes Moist - Neck Exam Neck Exam: Normal Inspection - Respiratory Exam Respiratory Exam: Clear to Ausculation Bilateral, NORMAL BREATHING PATTERN - Cardiovascular Exam Cardiovascular Exam: REGULAR RHYTHM, +S1 - GI/Abdominal Exam GI & Abdominal Exam: Soft - Extremities Exam Additional comments: No change in upper and in left lower extremities. L femoral vein PICC line in place Right residual limb dressing is dry and intact. - Back Exam Back Exam: NORMAL INSPECTION - Neurological Exam Neurological Exam: Alert, Awake, CN II-XII Intact, Oriented x3 - Psychiatric Exam Psychiatric exam: Normal Affect, Normal Mood - Skin Skin Exam: Dry, Normal Color, Warm Assessment and Plan (1) Status post below knee amputation of right lower extremity Assessment & Plan: Await further inpur regarding results of CT of right leg and await further input regarding antibiotic choices. As poer subjective, we must do all we can to avoid an AK amputation so as to preserve the patient's future ability to walk. Status: Acute (2) ESRD (end stage renal disease) on dialysis Status: Chronic (3) DM type 2 (diabetes mellitus, type 2) Status: Chronic (4) Coagulopathy Status: Chronic (5) Peripheral arterial occlusive disease Status: Chronic
[2016-11-14] MEDS: Sodium Chloride 0.9% 1,000 ML IV SCH (17:40)
--- NOTE | 2016-11-14 18:25 | CP.PCM.PN ---
Subjective - Date & Time of Evaluation Date of Evaluation: 11/14/16 Time of Evaluation: 18:19 - Subjective Subjective: I D NOTE SCAN OF OPERATIVE SITE SHOWS POSSIBLE EARLY OSTEOMYELITIS WOUND CULTURE GREW KLEBSSIELLA(MDR) MICs FOR GENTAMICIN BETTER THAN AMIKACIN IT IS ALSO SENSITIVE TO TYGACIL WHICH I HAVE DISCUSSED C AND HAVE STARTED Objective - Vital Signs/Intake and Output Vital Signs (last 24 hours): Temp Pulse Resp BP Pulse Ox 98.7 F 86 18 109/54 L 97 11/14/16 16:11 11/14/16 16:11 11/14/16 16:11 11/14/16 07:44 11/14/16 16:11 - Medications Medications: Current Medications Acetaminophen (Tylenol 325mg Tab) 650 mg PO Q4 PRN PRN Reason: Fever >100.4 F Last Admin: 10/02/16 16:27 Dose: 650 mg Acetaminophen (Tylenol 325mg Tab) 650 mg PO Q4 PRN PRN Reason: Pain, moderate (4-7) Last Admin: 09/16/16 22:34 Dose: 650 mg Albuterol Sulfate (Albuterol 0.083% Inhal Barbie (2.5 Mg/3 Ml) Ud) 2.5 mg INH RQ4 PRN PRN Reason: Shortness of Breath Albuterol/Ipratropium (Duoneb 3 Mg/0.5 Mg (3 Ml) Ud) 3 ml INH RQ4 PRN PRN Reason: Shortness of Breath Last Admin: 11/11/16 07:39 Dose: 3 ml Aspirin (Ecotrin) 81 mg PO DAILY [facility] Last Admin: 11/14/16 09:55 Dose: 81 mg Atorvastatin Calcium (Lipitor) 40 mg PO DAILY [facility] Last Admin: 11/14/16 09:52 Dose: 40 mg Benzonatate (Tessalon Perles) 200 mg PO TID PRN PRN Reason: Cough Last Admin: 10/02/16 14:07 Dose: 200 mg Calcium Carbonate (Oscal) 500 mg PO BIDWM [facility] Last Admin: 11/14/16 17:36 Dose: 500 mg Cinacalcet (Sensipar) 30 mg PO DAILY [facility] Last Admin: 11/14/16 09:53 Dose: 30 mg Collagenase (Santyl) 1 applic TOP DAILY [facility] Last Admin: 11/14/16 10:01 Dose: 1 applic Diphenhydramine HCl (Benadryl) 25 mg PO Q6 PRN PRN Reason: Itching / Pruritus Last Admin: 11/12/16 08:34 Dose: 25 mg Epoetin Tha (Procrit) 20,000 [place] [facility] Last Admin: 11/13/16 08:47 Dose: Not Given Ergocalciferol (Drisdol 50,000 Intl Units Cap) 1 cap PO WED [facility] Last Admin: 11/13/16 08:42 Dose: 1 cap Fluconazole (Diflucan) 100 mg PO DAILY [facility] Last Admin: 11/14/16 09:55 Dose: 100 mg Gabapentin (Neurontin) 300 mg PO TID [facility] Last Admin: 11/14/16 17:37 Dose: 300 mg Hydrocortisone (Anusol-Hc) 1 applic [place] BID PRN PRN Reason: Inflammation Hydromorphone HCl (Dilaudid) 1 mg IVP Q3H PRN PRN Reason: Pain, severe (8-10) Last Admin: 11/14/16 15:25 Dose: 1 mg Meropenem 500 mg/ Sodium (Chloride) 100 mls @ 100 mls/hr IVPB DAILY@0100 [facility] Last Admin: 11/14/16 01:04 Dose: 100 mls/hr Sodium Chloride (Sodium Chloride 0.9%) 1,000 mls @ 10 mls/hr IV .Q24H [facility] Last Admin: 11/14/16 17:40 Dose: Not Given Daptomycin 650 mg/ Sodium (Chloride) 100 mls @ 100 mls/hr [place] [facility] Stop: 11/18/16 09:01 Last Admin: 11/13/16 11:07 Dose: 100 mls/hr Gentamicin Sulfate/Sodium Chloride (Gentamicin 100mg/100ml Ns) 100 mg in 100 mls @ 100 mls/hr IVPB [facility] Insulin Detemir (Levemir) 26 units SC HS [facility] Last Admin: 11/13/16 22:43 Dose: 26 units Insulin Human Lispro (Humalog) 6 units SC AC [facility] Last Admin: 11/14/16 17:38 Dose: 6 units Lidocaine (Lidoderm) 1 ea TD DAILY [facility] Last Admin: 11/14/16 09:53 Dose: 1 ea Nystatin (Nystop Topical Powder) 1 applic TOP BID [facility] Last Admin: 11/14/16 17:39 Dose: 1 applic Ondansetron HCl (Zofran Inj) 4 mg IVP Q6 PRN PRN Reason: Nausea/Vomiting Last Admin: 09/19/16 10:26 Dose: 4 mg Pantoprazole Sodium (Protonix Ec Tab) 40 mg PO DAILY [facility] Last Admin: 11/14/16 09:56 Dose: 40 mg Sevelamer HCl (Renagel) 1,600 mg PO TID [facility] Last Admin: 11/14/16 17:36 Dose: 1,600 mg Topiramate (Topamax) 50 mg PO BID [facility] Last Admin: 11/14/16 17:37 Dose: 50 mg Vitamin B Complex/Vit C/Folic Acid (Nephro-Ajay) 1 tab PO DAILY [facility] Last Admin: 11/14/16 09:54 Dose: 1 tab - Labs Labs: 11/06/16 08:09 11/04/16 17:26 PT 17.6 Seconds (9.8-13.1) H 10/15/16 07:00 INR 1.5 (0.9-1.2) H 10/15/16 07:00 APTT 36.6 Seconds (25.6-37.1) 10/15/16 07:00
[2016-11-14] MEDS: Insulin Detemir 100 Units/ml Inj SC SCH (22:04)
--- NOTE | 2016-11-14 23:44 | CP.PCM.PN ---
Subjective - Date & Time of Evaluation Date of Evaluation: 11/14/16 Time of Evaluation: 20:15 - Subjective Subjective: Patient has no seizures. She is on Topamax 50 mg BID. Patient Wound Cultures are growing Klebsiella Pneumonia sensitive to Amikacin and to a lesser degree to Gentamycin. She has an early Osteomyelitis of the right Knee Stump. which might cause her inability to walk. She will receive her H.D. in AM as she is scheduled on ,,. Objective - Vital Signs/Intake and Output Vital Signs (last 24 hours): Temp Pulse Resp BP Pulse Ox 98.7 F 86 18 109/54 L 97 11/14/16 16:11 11/14/16 16:11 11/14/16 16:11 11/14/16 07:44 11/14/16 16:11 - Medications Medications: Current Medications Acetaminophen (Tylenol 325mg Tab) 650 mg PO Q4 PRN PRN Reason: Fever >100.4 F Last Admin: 10/02/16 16:27 Dose: 650 mg Acetaminophen (Tylenol 325mg Tab) 650 mg PO Q4 PRN PRN Reason: Pain, moderate (4-7) Last Admin: 09/16/16 22:34 Dose: 650 mg Albuterol Sulfate (Albuterol 0.083% Inhal Barbie (2.5 Mg/3 Ml) Ud) 2.5 mg INH RQ4 PRN PRN Reason: Shortness of Breath Albuterol/Ipratropium (Duoneb 3 Mg/0.5 Mg (3 Ml) Ud) 3 ml INH RQ4 PRN PRN Reason: Shortness of Breath Last Admin: 11/11/16 07:39 Dose: 3 ml Aspirin (Ecotrin) 81 mg PO DAILY [facility] Last Admin: 11/14/16 09:55 Dose: 81 mg Atorvastatin Calcium (Lipitor) 40 mg PO DAILY [facility] Last Admin: 11/14/16 09:52 Dose: 40 mg Benzonatate (Tessalon Perles) 200 mg PO TID PRN PRN Reason: Cough Last Admin: 10/02/16 14:07 Dose: 200 mg Calcium Carbonate (Oscal) 500 mg PO BIDWM [facility] Last Admin: 11/14/16 17:36 Dose: 500 mg Cinacalcet (Sensipar) 30 mg PO DAILY [facility] Last Admin: 11/14/16 09:53 Dose: 30 mg Collagenase (Santyl) 1 applic TOP DAILY [facility] Last Admin: 11/14/16 10:01 Dose: 1 applic Diphenhydramine HCl (Benadryl) 25 mg PO Q6 PRN PRN Reason: Itching / Pruritus Last Admin: 11/12/16 08:34 Dose: 25 mg Epoetin Tha (Procrit) 20,[address] [facility] [place] Last Admin: 11/13/16 08:47 Dose: Not Given Ergocalciferol (Drisdol 50,000 Intl Units Cap) 1 cap PO WED [facility] Last Admin: 11/13/16 08:42 Dose: 1 cap Fluconazole (Diflucan) 100 mg PO DAILY [facility] Last Admin: 11/14/16 09:55 Dose: 100 mg Gabapentin (Neurontin) 300 mg PO TID [facility] Last Admin: 11/14/16 17:37 Dose: 300 mg Hydrocortisone (Anusol-Hc) 1 applic SC BID PRN PRN Reason: Inflammation Hydromorphone HCl (Dilaudid) 1 mg IVP Q3H PRN PRN Reason: Pain, severe (8-10) Last Admin: 11/14/16 22:03 Dose: 1 mg Meropenem 500 mg/ Sodium (Chloride) 100 mls @ 100 mls/hr IVPB DAILY@0100 [facility] Last Admin: 11/14/16 01:04 Dose: 100 mls/hr Sodium Chloride (Sodium Chloride 0.9%) 1,000 mls @ 10 mls/hr IV .Q24H [facility] Last Admin: 11/14/16 17:40 Dose: Not Given Daptomycin 650 mg/ Sodium (Chloride) 100 mls @ 100 mls/hr IV [facility] [place] Stop: 11/18/16 09:01 Last Admin: 11/13/16 11:07 Dose: 100 mls/hr Gentamicin Sulfate/Sodium Chloride (Gentamicin 100mg/100ml Ns) 100 mg in 100 mls @ 100 mls/hr IVPB [facility] [place] Tigecycline 25 mg/ Sodium (Chloride) 100 mls @ 100 mls/hr IVPB Q12 [facility] Insulin Detemir (Levemir) 26 units SC HS [facility] Last Admin: 11/14/16 22:04 Dose: 26 units Insulin Human Lispro (Humalog) 6 units SC AC [facility] Last Admin: 11/14/16 17:38 Dose: 6 units Lidocaine (Lidoderm) 1 ea TD DAILY [facility] Last Admin: 11/14/16 09:53 Dose: 1 ea Nystatin (Nystop Topical Powder) 1 applic TOP BID [facility] Last Admin: 11/14/16 17:39 Dose: 1 applic Ondansetron HCl (Zofran Inj) 4 mg IVP Q6 PRN PRN Reason: Nausea/Vomiting Last Admin: 09/19/16 10:26 Dose: 4 mg Pantoprazole Sodium (Protonix Ec Tab) 40 mg PO DAILY [facility] Last Admin: 11/14/16 09:56 Dose: 40 mg Sevelamer HCl (Renagel) 1,600 mg PO TID [facility] Last Admin: 11/14/16 17:36 Dose: 1,600 mg Topiramate (Topamax) 50 mg PO BID [facility] Last Admin: 11/14/16 17:37 Dose: 50 mg Vitamin B Complex/Vit C/Folic Acid (Nephro-Ajay) 1 tab PO DAILY [facility] Last Admin: 11/14/16 09:54 Dose: 1 tab - Labs Labs: 11/06/16 08:09 11/04/16 17:26 PT 17.6 Seconds (9.8-13.1) H 10/15/16 07:00 INR 1.5 (0.9-1.2) H 10/15/16 07:00 APTT 36.6 Seconds (25.6-37.1) 10/15/16 07:00 Assessment and Plan (1) Diabetes Status: Chronic (2) ESRD (end stage renal disease) Status: Chronic (3) Cellulitis of leg Status: Chronic (4) Hyperlipidemia Status: Chronic (5) Back pain Status: Acute (6) Bacteremia due to Gram-negative bacteria Status: Acute (7) Diabetes mellitus type 2 with peripheral artery disease Status: Acute (8) PVD (peripheral vascular disease) Status: Acute (9) Osteomyelitis of right foot Status: Acute (10) Fungal infection right foot Status: Acute
[2016-11-15] MEDS: Meropenem 500 MG in Sodium Chloride 0.9% 100 ML IVPB SCH (00:15)
[2016-11-15] MEDS: Insulin Lispro (humaLOG) 100 Units/ml Inj SC SCH ×3 (08:30→17:14)
[2016-11-15] MEDS: Pantoprazole 40 mg EC Tab PO SCH (08:31)
[2016-11-15] MEDS: Multivitamin Vitamin B Complex (Nephro-Vite) Tab PO SCH (08:31)
[2016-11-15] MEDS: Lidocaine 5% Patch TD SCH (08:33)
[2016-11-15] MEDS: Santyl Collagenase OINTMENT TOP SCH (08:37)
[2016-11-15] MEDS: Epoetin Alfa 20000 UNIT/ML Inj IV SCH (08:38)
--- NOTE | 2016-11-15 08:39 | CP.PCM.PN ---
Addendum entered and electronically signed by Jacques Amado DO 11/15/16 10:31 : -f/u Triple phase bone scan to r/o osteo. -anticoagulation would need to be held for procedure next week. (at least 48hrs if eliquis is used) Jacques Amado PGY1 surgery pager: [phone] Original Note: <GermainSb - Last Filed: 11/15/16 08:37> Subjective - Date & Time of Evaluation Date of Evaluation: 11/15/16 Time of Evaluation: 08:37 - Subjective Subjective: Surgery for Dr. Mccormack Pt s&e. OVIDIO. Dressing changed yesterday. Pain controlled. Denies F/C/N/V/D/CP/ SOB. Getting HD today. Tolerating diet. Working with PT. Objective - Vital Signs/Intake and Output Vital Signs (last 24 hours): Temp Pulse Resp BP Pulse Ox 98.6 F 118 H 20 156/64 H 96 11/15/16 08:23 11/15/16 08:23 11/15/16 08:23 11/15/16 08:23 11/15/16 08:23 - Medications Medications: Current Medications Acetaminophen (Tylenol 325mg Tab) 650 mg PO Q4 PRN PRN Reason: Fever >100.4 F Last Admin: 10/02/16 16:27 Dose: 650 mg Acetaminophen (Tylenol 325mg Tab) 650 mg PO Q4 PRN PRN Reason: Pain, moderate (4-7) Last Admin: 09/16/16 22:34 Dose: 650 mg Albuterol Sulfate (Albuterol 0.083% Inhal Barbie (2.5 Mg/3 Ml) Ud) 2.5 mg INH RQ4 PRN PRN Reason: Shortness of Breath Albuterol/Ipratropium (Duoneb 3 Mg/0.5 Mg (3 Ml) Ud) 3 ml INH RQ4 PRN PRN Reason: Shortness of Breath Last Admin: 11/11/16 07:39 Dose: 3 ml Aspirin (Ecotrin) 81 mg PO DAILY [facility] Last Admin: 11/15/16 08:34 Dose: 81 mg Atorvastatin Calcium (Lipitor) 40 mg PO DAILY [facility] Last Admin: 11/15/16 08:30 Dose: 40 mg Benzonatate (Tessalon Perles) 200 mg PO TID PRN PRN Reason: Cough Last Admin: 10/02/16 14:07 Dose: 200 mg Calcium Carbonate (Oscal) 500 mg PO BIDWM [facility] Last Admin: 11/15/16 08:29 Dose: 500 mg Cinacalcet (Sensipar) 30 mg PO DAILY [facility] Last Admin: 11/15/16 08:29 Dose: 30 mg Collagenase (Santyl) 1 applic TOP DAILY [facility] Last Admin: 11/14/16 10:01 Dose: 1 applic Diphenhydramine HCl (Benadryl) 25 mg PO Q6 PRN PRN Reason: Itching / Pruritus Last Admin: 11/12/16 08:34 Dose: 25 mg Epoetin Tha (Procrit) 20,000 unit IV [facility] [place] Last Admin: 11/13/16 08:47 Dose: Not Given Ergocalciferol (Drisdol 50,000 Intl Units Cap) 1 cap PO WED [facility] Last Admin: 11/13/16 08:42 Dose: 1 cap Fluconazole (Diflucan) 100 mg PO DAILY [facility] Last Admin: 11/15/16 08:35 Dose: 100 mg Gabapentin (Neurontin) 300 mg PO TID [facility] Last Admin: 11/15/16 08:29 Dose: 300 mg Hydrocortisone (Anusol-Hc) 1 applic IN BID PRN PRN Reason: Inflammation Hydromorphone HCl (Dilaudid) 1 mg IVP Q3H PRN PRN Reason: Pain, severe (8-10) Last Admin: 11/15/16 08:19 Dose: 1 mg Meropenem 500 mg/ Sodium (Chloride) 100 mls @ 100 mls/hr IVPB DAILY@0100 [facility] Last Admin: 11/15/16 00:15 Dose: 100 mls/hr Sodium Chloride (Sodium Chloride 0.9%) 1,000 mls @ 10 mls/hr IV .Q24H [facility] Last Admin: 11/14/16 17:40 Dose: Not Given Daptomycin 650 mg/ Sodium (Chloride) 100 mls @ 100 mls/hr IV [facility] [place] Stop: 11/18/16 09:01 Last Admin: 11/13/16 11:07 Dose: 100 mls/hr Gentamicin Sulfate/Sodium Chloride (Gentamicin 100mg/100ml Ns) 100 mg in 100 mls @ 100 mls/hr IVPB [facility] [place] Tigecycline 25 mg/ Sodium (Chloride) 100 mls @ 100 mls/hr IVPB Q12 [facility] Insulin Detemir (Levemir) 26 units SC HS [facility] Last Admin: 11/14/16 22:04 Dose: 26 units Insulin Human Lispro (Humalog) 6 units SC AC [facility] Last Admin: 11/15/16 08:30 Dose: 6 units Lidocaine (Lidoderm) 1 ea TD DAILY [facility] Last Admin: 11/15/16 08:33 Dose: 1 ea Nystatin (Nystop Topical Powder) 1 applic TOP BID [facility] Last Admin: 11/15/16 08:36 Dose: 1 applic Ondansetron HCl (Zofran Inj) 4 mg IVP Q6 PRN PRN Reason: Nausea/Vomiting Last Admin: 09/19/16 10:26 Dose: 4 mg Pantoprazole Sodium (Protonix Ec Tab) 40 mg PO DAILY [facility] Last Admin: 11/15/16 08:31 Dose: 40 mg Sevelamer HCl (Renagel) 1,600 mg PO TID [facility] Last Admin: 11/15/16 08:29 Dose: 1,600 mg Topiramate (Topamax) 50 mg PO BID [facility] Last Admin: 11/15/16 08:31 Dose: 50 mg Vitamin B Complex/Vit C/Folic Acid (Nephro-Ajay) 1 tab PO DAILY [facility] Last Admin: 11/15/16 08:31 Dose: 1 tab - Labs Labs: 11/06/16 08:09 11/04/16 17:26 PT 17.6 Seconds (9.8-13.1) H 10/15/16 07:00 INR 1.5 (0.9-1.2) H 10/15/16 07:00 APTT 36.6 Seconds (25.6-37.1) 10/15/16 07:00 - Constitutional Appears: No Acute Distress - Head Exam Head Exam: ATRAUMATIC, NORMAL INSPECTION, NORMOCEPHALIC - Eye Exam Eye Exam: EOMI, Normal appearance, PERRL Pupil Exam: NORMAL ACCOMODATION, PERRL - ENT Exam ENT Exam: Mucous Membranes Moist, Normal Exam - Neck Exam Neck Exam: Full ROM, Normal Inspection. absent: Lymphadenopathy - Respiratory Exam Respiratory Exam: Clear to Ausculation Bilateral, NORMAL BREATHING PATTERN - Cardiovascular Exam Cardiovascular Exam: REGULAR RHYTHM, +S1, +S2. absent: Murmur - GI/Abdominal Exam GI & Abdominal Exam: Soft, Normal Bowel Sounds. absent: Distended, Firm, Tenderness, Organomegaly - Exam Exam: NORMAL INSPECTION - Extremities Exam Extremities Exam: Tenderness. absent: Full ROM, Normal Inspection Additional comments: b/l BKA. R stump has necrotic tissues on the edge. Dry, flaky skin. Dressing changed yesterday. - Back Exam Back Exam: NORMAL INSPECTION - Neurological Exam Neurological Exam: Alert, Awake, CN II-XII Intact, Oriented x3 - Psychiatric Exam Psychiatric exam: Normal Affect, Normal Mood - Skin Skin Exam: Dry, Erythema, Warm Assessment and Plan - Assessment and Plan (Free Text) Assessment: 46yo F with PMHx of HTN, ESRD, PVD. General Surgery following s/p Right BKA on . POD 45. - 11/02: Wound Cx Right Stump - Multi drug resistant Klebsiella - 11/11: Wound Cx Right Stump - Klebsiella penumoniae - CT: possible osteo -OR mon or Tu for Washout , debridement and possible BKA revision. NPO after midnight on Sun or Fri. - Continue dressing changes as per wound care team, continue chemical debridement. - Continue Medical management - Pain management. - IV Abx as per ID Discussed case with Dr. Mccormack. <Raffy Mccormack - Last Filed: 11/15/16 14:11> Objective - Vital Signs/Intake and Output Vital Signs (last 24 hours): Temp Pulse Resp BP Pulse Ox 98.6 F 118 H 20 156/64 H 96 11/15/16 08:23 11/15/16 08:23 11/15/16 08:23 11/15/16 08:23 11/15/16 08:23 - Medications Medications: Current Medications Acetaminophen (Tylenol 325mg Tab) 650 mg PO Q4 PRN PRN Reason: Fever >100.4 F Last Admin: 10/02/16 16:27 Dose: 650 mg Acetaminophen (Tylenol 325mg Tab) 650 mg PO Q4 PRN PRN Reason: Pain, moderate (4-7) Last Admin: 09/16/16 22:34 Dose: 650 mg Albuterol Sulfate (Albuterol 0.083% Inhal Barbie (2.5 Mg/3 Ml) Ud) 2.5 mg INH RQ4 PRN PRN Reason: Shortness of Breath Albuterol/Ipratropium (Duoneb 3 Mg/0.5 Mg (3 Ml) Ud) 3 ml INH RQ4 PRN PRN Reason: Shortness of Breath Last Admin: 11/11/16 07:39 Dose: 3 ml Aspirin (Ecotrin) 81 mg PO DAILY [facility] Last Admin: 11/15/16 08:34 Dose: 81 mg Atorvastatin Calcium (Lipitor) 40 mg PO DAILY [facility] Last Admin: 11/15/16 08:30 Dose: 40 mg Benzonatate (Tessalon Perles) 200 mg PO TID PRN PRN Reason: Cough Last Admin: 10/02/16 14:07 Dose: 200 mg Calcium Carbonate (Oscal) 500 mg PO BIDWM [facility] Last Admin: 11/15/16 08:29 Dose: 500 mg Cinacalcet (Sensipar) 30 mg PO DAILY [facility] Last Admin: 11/15/16 08:29 Dose: 30 mg Collagenase (Santyl) 1 applic TOP DAILY [facility] Last Admin: 11/15/16 08:37 Dose: 1 applic Diphenhydramine HCl (Benadryl) 25 mg PO Q6 PRN PRN Reason: Itching / Pruritus Last Admin: 11/12/16 08:34 Dose: 25 mg Epoetin Tha (Procrit) 20,000 unit IV MWF [facility] Last Admin: 11/15/16 08:38 Dose: 20,000 unit Ergocalciferol (Drisdol 50,000 Intl Units Cap) 1 cap PO WED [facility] Last Admin: 11/13/16 08:42 Dose: 1 cap Fluconazole (Diflucan) 100 mg PO DAILY [facility] Last Admin: 11/15/16 08:35 Dose: 100 mg Gabapentin (Neurontin) 300 mg PO TID [facility] Last Admin: 11/15/16 12:55 Dose: 300 mg Hydrocortisone (Anusol-Hc) 1 applic IN BID PRN PRN Reason: Inflammation Hydromorphone HCl (Dilaudid) 1 mg IVP Q3H PRN PRN Reason: Pain, severe (8-10) Last Admin: 11/15/16 08:19 Dose: 1 mg Meropenem 500 mg/ Sodium (Chloride) 100 mls @ 100 mls/hr IVPB DAILY@0100 [facility] Last Admin: 11/15/16 00:15 Dose: 100 mls/hr Sodium Chloride (Sodium Chloride 0.9%) 1,000 mls @ 10 mls/hr IV .Q24H [facility] Last Admin: 11/14/16 17:40 Dose: Not Given Daptomycin 650 mg/ Sodium (Chloride) 100 mls @ 100 mls/hr IV [facility] [place] Stop: 11/18/16 09:01 Last Admin: 11/13/16 11:07 Dose: 100 mls/hr Gentamicin Sulfate/Sodium Chloride (Gentamicin 100mg/100ml Ns) 100 mg in 100 mls @ 100 mls/hr IVPB [facility] [place] Last Admin: 11/15/16 12:49 Dose: 100 mls/hr Tigecycline 25 mg/ Sodium (Chloride) 100 mls @ 100 mls/hr IVPB Q12 [facility] Argatroban 250 mg/ Sodium (Chloride) 252.5 mls @ 5.95 mls/hr IV .Q24H [facility]; 2 MCG/KG/MIN PRN Reason: Protocol Insulin Detemir (Levemir) 26 units SC HS [facility] Last Admin: 11/14/16 22:04 Dose: 26 units Insulin Human Lispro (Humalog) 6 units SC AC [facility] Last Admin: 11/15/16 12:57 Dose: 6 units Lidocaine (Lidoderm) 1 ea TD DAILY [facility] Last Admin: 11/15/16 08:33 Dose: 1 ea Nystatin (Nystop Topical Powder) 1 applic TOP BID [facility] Last Admin: 11/15/16 08:36 Dose: 1 applic Ondansetron HCl (Zofran Inj) 4 mg IVP Q6 PRN PRN Reason: Nausea/Vomiting Last Admin: 09/19/16 10:26 Dose: 4 mg Pantoprazole Sodium (Protonix Ec Tab) 40 mg PO DAILY [facility] Last Admin: 11/15/16 08:31 Dose: 40 mg Sevelamer HCl (Renagel) 1,600 mg PO TID [facility] Last Admin: 11/15/16 12:55 Dose: 1,600 mg Topiramate (Topamax) 50 mg PO BID [facility] Last Admin: 11/15/16 08:31 Dose: 50 mg Vitamin B Complex/Vit C/Folic Acid (Nephro-Ajay) 1 tab PO DAILY [facility] Last Admin: 11/15/16 08:31 Dose: 1 tab - Labs Labs: 11/15/16 09:46 11/15/16 09:46 PT 17.6 Seconds (9.8-13.1) H 10/15/16 07:00 INR 1.5 (0.9-1.2) H 10/15/16 07:00 APTT 36.6 Seconds (25.6-37.1) 10/15/16 07:00 Assessment and Plan - Assessment and Plan (Free Text) Plan: Patient remained clinically stable. No immediate issues today. Right BKA site examined - essentially unchanged. Patient is to undergo bone scan to assess for presence of osteomyelitis in her right tibia, possibly femur as mentioned in the CT scan report. Surgical plan is to proceed with right BKA debridement, possible revision on this upcoming Friday - surgical plan, however, might have to be modified based on bone scan results.
[2016-11-15 09:59] LABS: BASO # 0.1 K/uL (0.0-0.2); BASO % 0.8 % (0.0-2.0); EOS # 0.8 K/uL (0.0-0.7); EOS % 8.2 % (0.0-4.0); LYMPH # 1.8 K/uL (1.0-4.3); LYMPH % 19.4 % (20.0-40.0); MEAN CELL VOLUME 101.2 fl (81.0-99.0); MEAN CORPUSCULAR HGB CONC 31.6 g/dL (33.0-37.0); MEAN PLATELET VOLUME 9.2 fl (7.2-11.7); MONO # 1.1 K/uL (0.0-0.8); MONO % 11.7 % (0.0-10.0); NEUT # 5.7 K/uL (1.8-7.0); NEUT % 59.9 % (50.0-75.0); RED CELL DISTRIBUTION WIDTH 25.3 % (11.5-14.5); WHITE BLOOD COUNT 9.5 K/uL (4.8-10.8)
[2016-11-15 10:09] LABS: ALB/GLOB RATIO 0.8 (1.0-2.1); BILIRUBIN,TOTAL 0.4 mg/dl (0.2-1.3); CALCIUM 9.8 mg/dL (8.4-10.2); TOTAL PROTEIN 8.8 G/DL (6.3-8.2)
[2016-11-15 10:15] LABS: POTASSIUM 5.5 MMOL/L (3.6-5.0)
--- NOTE | 2016-11-15 12:48 | CP.PCM.PN ---
Subjective - Date & Time of Evaluation Date of Evaluation: 11/15/16 Time of Evaluation: 12:00 - Subjective Subjective: Covering Dr. Shepard No complaints. To start argatroban drip today; can be started on Case discussed with Dr. Thomas and Dr. Bojorquez Objective - Vital Signs/Intake and Output Vital Signs (last 24 hours): Temp Pulse Resp BP Pulse Ox 98.6 F 118 H 20 156/64 H 96 11/15/16 08:23 11/15/16 08:23 11/15/16 08:23 11/15/16 08:23 11/15/16 08:23 - Medications Medications: Current Medications Acetaminophen (Tylenol 325mg Tab) 650 mg PO Q4 PRN PRN Reason: Fever >100.4 F Last Admin: 10/02/16 16:27 Dose: 650 mg Acetaminophen (Tylenol 325mg Tab) 650 mg PO Q4 PRN PRN Reason: Pain, moderate (4-7) Last Admin: 09/16/16 22:34 Dose: 650 mg Albuterol Sulfate (Albuterol 0.083% Inhal Barbie (2.5 Mg/3 Ml) Ud) 2.5 mg INH RQ4 PRN PRN Reason: Shortness of Breath Albuterol/Ipratropium (Duoneb 3 Mg/0.5 Mg (3 Ml) Ud) 3 ml INH RQ4 PRN PRN Reason: Shortness of Breath Last Admin: 11/11/16 07:39 Dose: 3 ml Aspirin (Ecotrin) 81 mg PO DAILY [facility] Last Admin: 11/15/16 08:34 Dose: 81 mg Atorvastatin Calcium (Lipitor) 40 mg PO DAILY [facility] Last Admin: 11/15/16 08:30 Dose: 40 mg Benzonatate (Tessalon Perles) 200 mg PO TID PRN PRN Reason: Cough Last Admin: 10/02/16 14:07 Dose: 200 mg Calcium Carbonate (Oscal) 500 mg PO BIDWM [facility] Last Admin: 11/15/16 08:29 Dose: 500 mg Cinacalcet (Sensipar) 30 mg PO DAILY [facility] Last Admin: 11/15/16 08:29 Dose: 30 mg Collagenase (Santyl) 1 applic TOP DAILY [facility] Last Admin: 11/15/16 08:37 Dose: 1 applic Diphenhydramine HCl (Benadryl) 25 mg PO Q6 PRN PRN Reason: Itching / Pruritus Last Admin: 11/12/16 08:34 Dose: 25 mg Epoetin Tha (Procrit) 20,000 unit IV [facility] [place] Last Admin: 11/15/16 08:38 Dose: 20,000 unit Ergocalciferol (Drisdol 50,000 Intl Units Cap) 1 cap PO WED [facility] Last Admin: 11/13/16 08:42 Dose: 1 cap Fluconazole (Diflucan) 100 mg PO DAILY [facility] Last Admin: 11/15/16 08:35 Dose: 100 mg Gabapentin (Neurontin) 300 mg PO TID [facility] Last Admin: 11/15/16 08:29 Dose: 300 mg Hydrocortisone (Anusol-Hc) 1 applic [place] BID PRN PRN Reason: Inflammation Hydromorphone HCl (Dilaudid) 1 mg IVP Q3H PRN PRN Reason: Pain, severe (8-10) Last Admin: 11/15/16 08:19 Dose: 1 mg Meropenem 500 mg/ Sodium (Chloride) 100 mls @ 100 mls/hr IVPB DAILY@0100 [facility] Last Admin: 11/15/16 00:15 Dose: 100 mls/hr Sodium Chloride (Sodium Chloride 0.9%) 1,000 mls @ 10 mls/hr IV .Q24H [facility] Last Admin: 11/14/16 17:40 Dose: Not Given Daptomycin 650 mg/ Sodium (Chloride) 100 mls @ 100 mls/hr IV [facility] [place] Stop: 11/18/16 09:01 Last Admin: 11/13/16 11:07 Dose: 100 mls/hr Gentamicin Sulfate/Sodium Chloride (Gentamicin 100mg/100ml Ns) 100 mg in 100 mls @ 100 mls/hr IVPB [facility] [place] Tigecycline 25 mg/ Sodium (Chloride) 100 mls @ 100 mls/hr IVPB Q12 [facility] Insulin Detemir (Levemir) 26 units SC HS [facility] Last Admin: 11/14/16 22:04 Dose: 26 units Insulin Human Lispro (Humalog) 6 units SC AC [facility] Last Admin: 11/15/16 08:30 Dose: 6 units Lidocaine (Lidoderm) 1 ea TD DAILY [facility] Last Admin: 11/15/16 08:33 Dose: 1 ea Nystatin (Nystop Topical Powder) 1 applic TOP BID [facility] Last Admin: 11/15/16 08:36 Dose: 1 applic Ondansetron HCl (Zofran Inj) 4 mg IVP Q6 PRN PRN Reason: Nausea/Vomiting Last Admin: 09/19/16 10:26 Dose: 4 mg Pantoprazole Sodium (Protonix Ec Tab) 40 mg PO DAILY [facility] Last Admin: 11/15/16 08:31 Dose: 40 mg Sevelamer HCl (Renagel) 1,600 mg PO TID [facility] Last Admin: 11/15/16 08:29 Dose: 1,600 mg Topiramate (Topamax) 50 mg PO BID [facility] Last Admin: 11/15/16 08:31 Dose: 50 mg Vitamin B Complex/Vit C/Folic Acid (Nephro-Ajay) 1 tab PO DAILY [facility] Last Admin: 11/15/16 08:31 Dose: 1 tab - Labs Labs: 11/15/16 09:46 11/15/16 09:46 PT 17.6 Seconds (9.8-13.1) H 10/15/16 07:00 INR 1.5 (0.9-1.2) H 10/15/16 07:00 APTT 36.6 Seconds (25.6-37.1) 10/15/16 07:00 - Head Exam Head Exam: ATRAUMATIC - Eye Exam Eye Exam: Normal appearance - ENT Exam ENT Exam: Mucous Membranes Dry - Respiratory Exam Respiratory Exam: NORMAL BREATHING PATTERN - Cardiovascular Exam Cardiovascular Exam: +S1, +S2 - GI/Abdominal Exam GI & Abdominal Exam: Normal Bowel Sounds Assessment and Plan (1) 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
[2016-11-15] MEDS: Gentamicin 100mg/100ml NS 100 MG/100 ML BAG IVPB SCH (12:49)
[2016-11-15] MEDS: TIGECYCLINE IVPB SCH ×2 (13:27→20:49)
[2016-11-15] MEDS: SODIUM CHLORIDE 0.9% IVPB SCH ×2 (13:27→20:49)
--- NOTE | 2016-11-15 16:01 | CP.PCM.PN ---
Subjective - Date & Time of Evaluation Date of Evaluation: 11/15/16 Time of Evaluation: 15:49 - Subjective Subjective: Patient evaluated and discussed with Drs. Comer (for Dr. Mccormack), Arnol Lemon B. Haddad, Kozel and Levon Camara (covering for Dr. Evita Shepard). 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 She had been on Eliquis and aspirin with good results and no clotting, but the order for Eliquis was dropped on 11/09/16 by the [employer] computer program. No one was notified, and this serious lapse in anticoagulation was not detected until today. She was given a stat dose of Eliquis 5mg immediately. However, the lapse in anticoagulation creates complexities since the patient is to have surgical debridement in the OR on 11/18/16. (see below). Patient is S/P Right BK amputation with difficult wound healing. Recent cultures have been positive for multidrug resistant Klebsiella. Dr. Lemon has modified her antibiotic regimen such that she is now on IV Gentamicin (MWF post dialysis), iv meropenem, and IV tigacycline. The tigacycline dose is to be adjusted according to the patient's liver function. Small increases in the transaminases are present at this time. Patient is also on po fluconazole. Recent CT scan with iv contrast suggested possible osteomyelitis of the right residual limb. The patient is to have a 3 phase nuclear bone scan this afternoon as per Dr. Mccormack. Surgery is scheduled for Friday, 11/18, to remove devitalized tissue from the right residual limb. In anticipation, the aspirin will be stopped. No further Eliquis will be given beyond the one urgent dose today. As per Dr. Camara, we will start the patient on an argatroban iv drip and continue this until 12 hours before surgery. Following surgery, with the approval of Dr. Mccormack, the Eliquis and aspirin will be resumed. DM has been well controlled on the current insulin regimen as per Dr. Ambrose. Hemodialysis has been going well. Objective - Vital Signs/Intake and Output Vital Signs (last 24 hours): Temp Pulse Resp BP Pulse Ox 98.6 F 118 H 20 156/64 H 96 11/15/16 08:23 11/15/16 08:23 11/15/16 08:23 11/15/16 08:23 11/15/16 08:23 - Medications Medications: Current Medications Acetaminophen (Tylenol 325mg Tab) 650 mg PO Q4 PRN PRN Reason: Fever >100.4 F Last Admin: 10/02/16 16:27 Dose: 650 mg Acetaminophen (Tylenol 325mg Tab) 650 mg PO Q4 PRN PRN Reason: Pain, moderate (4-7) Last Admin: 09/16/16 22:34 Dose: 650 mg Albuterol Sulfate (Albuterol 0.083% Inhal Barbie (2.5 Mg/3 Ml) Ud) 2.5 mg INH RQ4 PRN PRN Reason: Shortness of Breath Albuterol/Ipratropium (Duoneb 3 Mg/0.5 Mg (3 Ml) Ud) 3 ml INH RQ4 PRN PRN Reason: Shortness of Breath Last Admin: 11/11/16 07:39 Dose: 3 ml Aspirin (Ecotrin) 81 mg PO DAILY [facility] Last Admin: 11/15/16 08:34 Dose: 81 mg Atorvastatin Calcium (Lipitor) 40 mg PO DAILY [facility] Last Admin: 11/15/16 08:30 Dose: 40 mg Benzonatate (Tessalon Perles) 200 mg PO TID PRN PRN Reason: Cough Last Admin: 10/02/16 14:07 Dose: 200 mg Calcium Carbonate (Oscal) 500 mg PO BIDWM [facility] Last Admin: 11/15/16 08:29 Dose: 500 mg Cinacalcet (Sensipar) 30 mg PO DAILY [facility] Last Admin: 11/15/16 08:29 Dose: 30 mg Collagenase (Santyl) 1 applic TOP DAILY [facility] Last Admin: 11/15/16 08:37 Dose: 1 applic Diphenhydramine HCl (Benadryl) 25 mg PO Q6 PRN PRN Reason: Itching / Pruritus Last Admin: 11/12/16 08:34 Dose: 25 mg Epoetin Tha (Procrit) 20,000 unit IV MWF [facility] Last Admin: 11/15/16 08:38 Dose: 20,000 unit Ergocalciferol (Drisdol 50,000 Intl Units Cap) 1 cap PO WED [facility] Last Admin: 11/13/16 08:42 Dose: 1 cap Fluconazole (Diflucan) 100 mg PO DAILY [facility] Last Admin: 11/15/16 08:35 Dose: 100 mg Gabapentin (Neurontin) 300 mg PO TID [facility] Last Admin: 11/15/16 12:55 Dose: 300 mg Hydrocortisone (Anusol-Hc) 1 applic [place] BID PRN PRN Reason: Inflammation Hydromorphone HCl (Dilaudid) 1 mg IVP Q3H PRN PRN Reason: Pain, severe (8-10) Last Admin: 11/15/16 08:19 Dose: 1 mg Meropenem 500 mg/ Sodium (Chloride) 100 mls @ 100 mls/hr IVPB DAILY@0100 [facility] Last Admin: 11/15/16 00:15 Dose: 100 mls/hr Sodium Chloride (Sodium Chloride 0.9%) 1,000 mls @ 10 mls/hr IV .Q24H [facility] Last Admin: 11/14/16 17:40 Dose: Not Given Daptomycin 650 mg/ Sodium (Chloride) 100 mls @ 100 mls/hr IV [facility] [place] Stop: 11/18/16 09:01 Last Admin: 11/13/16 11:07 Dose: 100 mls/hr Gentamicin Sulfate/Sodium Chloride (Gentamicin 100mg/100ml Ns) 100 mg in 100 mls @ 100 mls/hr IVPB [facility] [place] [facility] Last Admin: 11/15/16 12:49 Dose: 100 mls/hr Tigecycline 25 mg/ Sodium (Chloride) 100 mls @ 100 mls/hr IVPB Q12 [facility] Argatroban 250 mg/ Sodium (Chloride) 252.5 mls @ 5.95 mls/hr IV .Q24H [facility]; 2 MCG/KG/MIN PRN Reason: Protocol Insulin Detemir (Levemir) 26 units SC HS [facility] Last Admin: 11/14/16 22:04 Dose: 26 units Insulin Human Lispro (Humalog) 6 units SC AC [facility] Last Admin: 11/15/16 12:57 Dose: 6 units Lidocaine (Lidoderm) 1 ea TD DAILY [facility] Last Admin: 11/15/16 08:33 Dose: 1 ea Nystatin (Nystop Topical Powder) 1 applic TOP BID [facility] Last Admin: 11/15/16 08:36 Dose: 1 applic Ondansetron HCl (Zofran Inj) 4 mg IVP Q6 PRN PRN Reason: Nausea/Vomiting Last Admin: 09/19/16 10:26 Dose: 4 mg Pantoprazole Sodium (Protonix Ec Tab) 40 mg PO DAILY [facility] Last Admin: 11/15/16 08:31 Dose: 40 mg Sevelamer HCl (Renagel) 1,600 mg PO TID [facility] Last Admin: 11/15/16 12:55 Dose: 1,600 mg Topiramate (Topamax) 50 mg PO BID [facility] Last Admin: 11/15/16 08:31 Dose: 50 mg Vitamin B Complex/Vit C/Folic Acid (Nephro-Ajay) 1 tab PO DAILY [facility] Last Admin: 11/15/16 08:31 Dose: 1 tab - Labs Labs: 11/15/16 09:46 11/15/16 09:46 PT 17.6 Seconds (9.8-13.1) H 10/15/16 07:00 INR 1.5 (0.9-1.2) H 10/15/16 07:00 APTT 36.6 Seconds (25.6-37.1) 10/15/16 07:00 AST 51 ALT 30 Alk Phos 191 T. bili 0.4 - Constitutional Appears: No Acute Distress - Head Exam Head Exam: NORMAL INSPECTION - Eye Exam Eye Exam: Normal appearance - ENT Exam ENT Exam: Mucous Membranes Moist - Neck Exam Neck Exam: Normal Inspection Additional comments: R subclavian Permacath intact. - Respiratory Exam Respiratory Exam: Clear to Ausculation Bilateral, NORMAL BREATHING PATTERN - Cardiovascular Exam Cardiovascular Exam: REGULAR RHYTHM, +S1, +S2 - GI/Abdominal Exam GI & Abdominal Exam: Soft - Extremities Exam Additional comments: Dressing dry and intact, knee immobilizer in place R residual limb. PICC line left femoral vein intact. All other extremities as before. - Back Exam Back Exam: NORMAL INSPECTION - Neurological Exam Neurological Exam: Alert, Awake, CN II-XII Intact, Oriented x3 - Psychiatric Exam Psychiatric exam: Depressed - Skin Skin Exam: Dry, Normal Color, Warm Assessment and Plan (1) Status post below knee amputation of right lower extremity Assessment & Plan: SEE SUBJECTIVE. Status: Acute (2) ESRD (end stage renal disease) on dialysis Status: Chronic (3) DM type 2 (diabetes mellitus, type 2) Status: Chronic (4) Coagulopathy Assessment & Plan: SEE SUBJECTIVE Status: Chronic (5) Peripheral arterial occlusive disease Status: Chronic
[2016-11-15] MEDS: Insulin Detemir 100 Units/ml Inj SC SCH (22:43)
[2016-11-15 22:58] LABS: PARTIAL THROMBOPLASTIN TIME 36.1 Seconds (25.6-37.1)
--- NOTE | 2016-11-16 00:04 | CP.PCM.PN ---
Subjective - Date & Time of Evaluation Date of Evaluation: 11/15/16 Time of Evaluation: 21:00 - Subjective Subjective: IMPRESSION MRI of Right Knee Stump: - Patchy areas of lucency and sclerosis in the distal femur, proximal tibia, and patella, about the knee, with no aggressive periosteal reaction or large areas of cortical destruction seen. Findings could potentially be a sign of early acute osteomyelitis. MRI of the knee would be helpful for further evaluation, as clinically indicated. - Soft tissue edema at the level of the stump, presumably secondary to cellulitis. There is a small amount of soft tissue air. This air could be iatrogenic or related to a soft tissue ulceration, although is difficult to definitely rule out infection with gas producing organisms. Recommend clinical correlation. No evidence of diffuse soft tissue gas or of a soft tissue abscess. - Small knee joint effusion. - See above for remaining findings. Patient is not in distress. Her Thrombocytopenia is assessed by Dr Vitor Camara of Hematology and reported Heparin as the cause and Eliquis is recommended instead of Heparin. She will have a Procedure of debridement of her Mild Osteomyelitis in the Stump of the Right BKA. She is feeling unhappy about the development of her Osteomyelitis infection. No Seizures are reported and she is on Topamax 50 mg BID. As per Dr. Camara, we will start the patient on an argatroban iv drip and continue this until 12 hours before surgery. Following surgery, with the approval of Dr. Mccormack, the Eliquis and aspirin will be resumed. Objective - Vital Signs/Intake and Output Vital Signs (last 24 hours): Temp Pulse Resp BP Pulse Ox 98.5 F 112 H 18 106/92 H 99 11/15/16 16:05 11/15/16 16:05 11/15/16 16:05 11/15/16 16:11/15/16 16:05 - Medications Medications: Current Medications Acetaminophen (Tylenol 325mg Tab) 650 mg PO Q4 PRN PRN Reason: Fever >100.4 F Last Admin: 10/02/16 16:27 Dose: 650 mg Acetaminophen (Tylenol 325mg Tab) 650 mg PO Q4 PRN PRN Reason: Pain, moderate (4-7) Last Admin: 09/16/16 22:34 Dose: 650 mg Albuterol Sulfate (Albuterol 0.083% Inhal Barbie (2.5 Mg/3 Ml) Ud) 2.5 mg INH RQ4 PRN PRN Reason: Shortness of Breath Albuterol/Ipratropium (Duoneb 3 Mg/0.5 Mg (3 Ml) Ud) 3 ml INH RQ4 PRN PRN Reason: Shortness of Breath Last Admin: 11/11/16 07:39 Dose: 3 ml Aspirin (Ecotrin) 81 mg PO DAILY [facility] Last Admin: 11/15/16 08:34 Dose: 81 mg Atorvastatin Calcium (Lipitor) 40 mg PO DAILY [facility] Last Admin: 11/15/16 08:30 Dose: 40 mg Benzonatate (Tessalon Perles) 200 mg PO TID PRN PRN Reason: Cough Last Admin: 10/02/16 14:07 Dose: 200 mg Calcium Carbonate (Oscal) 500 mg PO BIDWM [facility] Last Admin: 11/15/16 17:01 Dose: 500 mg Cinacalcet (Sensipar) 30 mg PO DAILY [facility] Last Admin: 11/15/16 08:29 Dose: 30 mg Collagenase (Santyl) 1 applic TOP DAILY [facility] Last Admin: 11/15/16 08:37 Dose: 1 applic Diphenhydramine HCl (Benadryl) 25 mg PO Q6 PRN PRN Reason: Itching / Pruritus Last Admin: 11/12/16 08:34 Dose: 25 mg Epoetin Tha (Procrit) 20,000 unit IV MWF [facility] Last Admin: 11/15/16 08:38 Dose: 20,000 unit Ergocalciferol (Drisdol 50,000 Intl Units Cap) 1 cap PO WED [facility] Last Admin: 11/13/16 08:42 Dose: 1 cap Fluconazole (Diflucan) 100 mg PO DAILY [facility] Last Admin: 11/15/16 08:35 Dose: 100 mg Gabapentin (Neurontin) 300 mg PO TID [facility] Last Admin: 11/15/16 17:02 Dose: 300 mg Hydrocortisone (Anusol-Hc) 1 applic [place] BID PRN PRN Reason: Inflammation Hydromorphone HCl (Dilaudid) 1 mg IVP Q3H PRN PRN Reason: Pain, severe (8-10) Last Admin: 11/15/16 20:43 Dose: 1 mg Meropenem 500 mg/ Sodium (Chloride) 100 mls @ 100 mls/hr IVPB DAILY@0100 [facility] Last Admin: 11/15/16 00:15 Dose: 100 mls/hr Sodium Chloride (Sodium Chloride 0.9%) 1,000 mls @ 10 mls/hr IV .Q24H [facility] Last Admin: 11/14/16 17:40 Dose: Not Given Daptomycin 650 mg/ Sodium (Chloride) 100 mls @ 100 mls/hr [place] [facility] [place]: 11/18/16 09:01 Last Admin: 11/15/16 16:59 Dose: 100 mls/hr Gentamicin Sulfate/Sodium Chloride (Gentamicin 100mg/100ml Ns) 100 mg in 100 mls @ 100 mls/hr [place]PB [facility] Last Admin: 11/15/16 12:49 Dose: 100 mls/hr Tigecycline 25 mg/ Sodium (Chloride) 100 mls @ 100 mls/hr IVPB Q12 [facility] Last Admin: 11/15/16 20:49 Dose: 100 mls/hr Argatroban 250 mg/ Sodium (Chloride) 252.5 mls @ 5.95 mls/hr IV .Q24H [facility]; 2 MCG/KG/MIN PRN Reason: Protocol Last Admin: 11/15/16 22:29 Dose: 5.95 mls/hr Insulin Detemir (Levemir) 26 units SC HS [facility] Last Admin: 11/15/16 22:43 Dose: 26 units Insulin Human Lispro (Humalog) 6 units SC AC [facility] Last Admin: 11/15/16 17:14 Dose: 6 units Lidocaine (Lidoderm) 1 ea TD DAILY [facility] Last Admin: 11/15/16 08:33 Dose: 1 ea Nystatin (Nystop Topical Powder) 1 applic TOP BID [facility] Last Admin: 11/15/16 17:31 Dose: 1 applic Ondansetron HCl (Zofran Inj) 4 mg IVP Q6 PRN PRN Reason: Nausea/Vomiting Last Admin: 09/19/16 10:26 Dose: 4 mg Pantoprazole Sodium (Protonix Ec Tab) 40 mg PO DAILY [facility] Last Admin: 11/15/16 08:31 Dose: 40 mg Sevelamer HCl (Renagel) 1,600 mg PO TID [facility] Last Admin: 11/15/16 17:01 Dose: 1,600 mg Topiramate (Topamax) 50 mg PO BID [facility] Last Admin: 11/15/16 17:04 Dose: 50 mg Vitamin B Complex/Vit C/Folic Acid (Nephro-Ajay) 1 tab PO DAILY [facility] Last Admin: 11/15/16 08:31 Dose: 1 tab - Labs Labs: 11/15/16 09:46 11/15/16 09:46 PT 14.2 Seconds (9.8-13.1) H 11/15/16 22:13 INR 1.3 (0.9-1.2) H 11/15/16 22:13 APTT 36.1 Seconds (25.6-37.1) 11/15/16 22:13 Assessment and Plan (1) Diabetes Status: Chronic (2) ESRD (end stage renal disease) Status: Chronic (3) Cellulitis of leg Status: Chronic (4) Hyperlipidemia Status: Chronic (5) Back pain Status: Acute (6) Bacteremia due to Gram-negative bacteria Status: Acute (7) Diabetes mellitus type 2 with peripheral artery disease Status: Acute (8) PVD (peripheral vascular disease) Status: Acute (9) Osteomyelitis of right leg Assessment & Plan: Right BKA is showing Osteomyelitis and a Debridement surgery will be performed. Status: Acute
[2016-11-16] MEDS: Meropenem 500 MG in Sodium Chloride 0.9% 100 ML IVPB SCH (01:53)
[2016-11-16 05:22] LABS: HEMATOCRIT 34.7 % (34.0-47.0); MEAN CORPUSCULAR HEMOGLOBIN 32.6 pg (27.0-31.0); MEAN CORPUSCULAR HGB CONC 32.3 g/dL (33.0-37.0); WHITE BLOOD COUNT 10.3 K/uL (4.8-10.8)
[2016-11-16 05:35] LABS: ALB/GLOB RATIO 0.9 (1.0-2.1); BILIRUBIN,TOTAL 0.5 mg/dl (0.2-1.3); CALCIUM 9.7 mg/dL (8.4-10.2); TOTAL PROTEIN 8.6 G/DL (6.3-8.2)
[2016-11-16 05:36] LABS: POTASSIUM 5.4 MMOL/L (3.6-5.0)
[2016-11-16] MEDS: Insulin Lispro (humaLOG) 100 Units/ml Inj SC SCH ×3 (08:00→17:16)
[2016-11-16] MEDS: Lidocaine 5% Patch TD SCH (08:35)
[2016-11-16] MEDS: Multivitamin Vitamin B Complex (Nephro-Vite) Tab PO SCH (08:37)
[2016-11-16] MEDS: Pantoprazole 40 mg EC Tab PO SCH (08:37)
--- NOTE | 2016-11-16 08:46 | CP.PCM.PN ---
<Jacques Amado - Last Filed: 11/16/16 08:43> Subjective - Date & Time of Evaluation Date of Evaluation: 11/16/16 Time of Evaluation: 08:43 - Subjective Subjective: Surgery Progress note. Dr. Mccormack Pt seen and examined at bedside. No acute events overnight. Patient was transfered to the ICU for initiation of Argatroban drip as per branch manager trainee. Patient denies any complaints. No F/C. No N/V/D. No Chest pain/SOB. No Headaches. Tolerating diet. Dressing to right lower extremity changed yesterday afternoon and is clean and dry. Objective - Vital Signs/Intake and Output Vital Signs (last 24 hours): Temp Pulse Resp BP Pulse Ox 97.8 F 112 H 15 104/71 95 11/16/16 04:00 11/16/16 06:00 11/16/16 06:00 11/16/16 06:00 11/16/16 06:00 Intake and Output: 11/16/16 11/16/16 06:59 18:59 Intake Total 130 Output Total 0 Balance 130 - Medications Medications: Current Medications Acetaminophen (Tylenol 325mg Tab) 650 mg PO Q4 PRN PRN Reason: Fever >100.4 F Last Admin: 10/02/16 16:27 Dose: 650 mg Acetaminophen (Tylenol 325mg Tab) 650 mg PO Q4 PRN PRN Reason: Pain, moderate (4-7) Last Admin: 09/16/16 22:34 Dose: 650 mg Albuterol Sulfate (Albuterol 0.083% Inhal Barbie (2.5 Mg/3 Ml) Ud) 2.5 mg INH RQ4 PRN PRN Reason: Shortness of Breath Albuterol/Ipratropium (Duoneb 3 Mg/0.5 Mg (3 Ml) Ud) 3 ml INH RQ4 PRN PRN Reason: Shortness of Breath Last Admin: 11/11/16 07:39 Dose: 3 ml Aspirin (Ecotrin) 81 mg PO DAILY [facility] Last Admin: 11/15/16 08:34 Dose: 81 mg Atorvastatin Calcium (Lipitor) 40 mg PO DAILY [facility] Last Admin: 11/15/16 08:30 Dose: 40 mg Benzonatate (Tessalon Perles) 200 mg PO TID PRN PRN Reason: Cough Last Admin: 10/02/16 14:07 Dose: 200 mg Calcium Carbonate (Oscal) 500 mg PO BIDWM [facility] Last Admin: 11/15/16 17:01 Dose: 500 mg Cinacalcet (Sensipar) 30 mg PO DAILY [facility] Last Admin: 11/15/16 08:29 Dose: 30 mg Collagenase (Santyl) 1 applic TOP DAILY [facility] Last Admin: 11/15/16 08:37 Dose: 1 applic Diphenhydramine HCl (Benadryl) 25 mg PO Q6 PRN PRN Reason: Itching / Pruritus Last Admin: 11/12/16 08:34 Dose: 25 mg Epoetin Tha (Procrit) 20,000 unit IV [facility] [place] Last Admin: 11/15/16 08:38 Dose: 20,000 unit Ergocalciferol (Drisdol 50,000 Intl Units Cap) 1 cap PO WED [facility] Last Admin: 11/13/16 08:42 Dose: 1 cap Fluconazole (Diflucan) 100 mg PO DAILY [facility] Last Admin: 11/15/16 08:35 Dose: 100 mg Gabapentin (Neurontin) 300 mg PO TID [facility] Last Admin: 11/15/16 17:02 Dose: 300 mg Hydrocortisone (Anusol-Hc) 1 applic OR BID PRN PRN Reason: Inflammation Hydromorphone HCl (Dilaudid) 1 mg IVP Q3H PRN PRN Reason: Pain, severe (8-10) Last Admin: 11/16/16 04:54 Dose: 1 mg Meropenem 500 mg/ Sodium (Chloride) 100 mls @ 100 mls/hr IVPB DAILY@0100 [facility] Last Admin: 11/16/16 01:53 Dose: 100 mls/hr Sodium Chloride (Sodium Chloride 0.9%) 1,000 mls @ 10 mls/hr IV .Q24H [facility] Last Admin: 11/14/16 17:40 Dose: Not Given Daptomycin 650 mg/ Sodium (Chloride) 100 mls @ 100 mls/hr IV [facility] [place] Stop: 11/18/16 09:01 Last Admin: 11/15/16 16:59 Dose: 100 mls/hr Gentamicin Sulfate/Sodium Chloride (Gentamicin 100mg/100ml Ns) 100 mg in 100 mls @ 100 mls/hr IVPB [facility] [place] Last Admin: 11/15/16 12:49 Dose: 100 mls/hr Tigecycline 25 mg/ Sodium (Chloride) 100 mls @ 100 mls/hr IVPB Q12 [facility] Last Admin: 11/15/16 20:49 Dose: 100 mls/hr Argatroban 250 mg/ Sodium (Chloride) 252.5 mls @ 5.95 mls/hr IV .Q24H [facility]; 2 MCG/KG/MIN PRN Reason: Protocol Last Admin: 11/15/16 22:29 Dose: 5.95 mls/hr Insulin Detemir (Levemir) 26 units SC HS [facility] Last Admin: 11/15/16 22:43 Dose: 26 units Insulin Human Lispro (Humalog) 6 units SC AC [facility] Last Admin: 11/15/16 17:14 Dose: 6 units Lidocaine (Lidoderm) 1 ea TD DAILY [facility] Last Admin: 11/15/16 08:33 Dose: 1 ea Nystatin (Nystop Topical Powder) 1 applic TOP BID [facility] Last Admin: 11/15/16 17:31 Dose: 1 applic Ondansetron HCl (Zofran Inj) 4 mg IVP Q6 PRN PRN Reason: Nausea/Vomiting Last Admin: 09/19/16 10:26 Dose: 4 mg Pantoprazole Sodium (Protonix Ec Tab) 40 mg PO DAILY [facility] Last Admin: 11/15/16 08:31 Dose: 40 mg Sevelamer HCl (Renagel) 1,600 mg PO TID [facility] Last Admin: 11/15/16 17:01 Dose: 1,600 mg Topiramate (Topamax) 50 mg PO BID [facility] Last Admin: 11/15/16 17:04 Dose: 50 mg Vitamin B Complex/Vit C/Folic Acid (Nephro-Ajay) 1 tab PO DAILY [facility] Last Admin: 11/15/16 08:31 Dose: 1 tab - Labs Labs: 11/16/16 05:00 11/16/16 05:00 PT 14.2 Seconds (9.8-13.1) H 11/15/16 22:13 INR 1.3 (0.9-1.2) H 11/15/16 22:13 APTT 121.3 Seconds (25.6-37.1) H* D 11/16/16 07:00 - Constitutional Appears: Well, No Acute Distress - Head Exam Head Exam: ATRAUMATIC, NORMAL INSPECTION, NORMOCEPHALIC - Eye Exam Eye Exam: EOMI - ENT Exam ENT Exam: Mucous Membranes Moist - Respiratory Exam Respiratory Exam: NORMAL BREATHING PATTERN - GI/Abdominal Exam GI & Abdominal Exam: Soft. absent: Distended, Guarding, Rigid, Tenderness, Rebound - Extremities Exam Additional comments: Right lower extremity in straight leg brace. Dressing clean, dry and intact. No active drainage - Neurological Exam Neurological Exam: Alert, Awake, Oriented x3 Assessment and Plan - Assessment and Plan (Free Text) Assessment: 46yo F with PMHx of HTN, ESRD, PVD. General Surgery following s/p Right BKA on . POD 46. - 11/02: Wound Cx Right Stump - Multi drug resistant Klebsiella - 11/11: Wound Cx Right Stump - Klebsiella - CT: possible osteo - f/u 3-phase Bone scan scheduled for Saturday 11/18 - OR Sunday 11/19 for Washout, debridement and possible BKA revision pending results of bone scan. - Continue dressing changes as per wound care team, continue chemical debridement. - Continue Medical management - Pain management - IV Abx as per ID Further recs as per Dr. Easton Amado PGY1 <Raffy Mccormack - Last Filed: 11/16/16 11:05> Subjective - Subjective Subjective: Patient seen and examined. No acute or immediate issues. No new complaints this AM. Patient tolerates systemic anticoagulation without difficulty. Right BKA examined and dressing changed at bedside - wound is essentially status quo with well-granulated medial aspect and infected lateral aspect. Continue current treatment. Daily dressing changes. Bone scan this upcoming Friday and likely OR to follow Friday - will decide based on the results. Objective - Vital Signs/Intake and Output Vital Signs (last 24 hours): Temp Pulse Resp BP Pulse Ox 98.2 F 110 H 12 106/79 99 11/16/16 08:00 11/16/16 10:00 11/16/16 10:00 11/16/16 10:11/16/16 10:00 Intake and Output: 11/16/16 11/16/16 06:59 18:59 Intake Total 130 310 Output Total 0 Balance 130 310 - Medications Medications: Current Medications Acetaminophen (Tylenol 325mg Tab) 650 mg PO Q4 PRN PRN Reason: Fever >100.4 F Last Admin: 05/24/17 16:27 Dose: 650 mg Acetaminophen (Tylenol 325mg Tab) 650 mg PO Q4 PRN PRN Reason: Pain, moderate (4-7) Last Admin: 09/16/16 22:34 Dose: 650 mg Albuterol Sulfate (Albuterol 0.083% Inhal Barbie (2.5 Mg/3 Ml) Ud) 2.5 mg INH RQ4 PRN PRN Reason: Shortness of Breath Albuterol/Ipratropium (Duoneb 3 Mg/0.5 Mg (3 Ml) Ud) 3 ml INH RQ4 PRN PRN Reason: Shortness of Breath Last Admin: 11/11/16 07:39 Dose: 3 ml Aspirin (Ecotrin) 81 mg PO DAILY [facility] Last Admin: 11/16/16 08:35 Dose: 81 mg Atorvastatin Calcium (Lipitor) 40 mg PO DAILY [facility] Last Admin: 11/16/16 08:36 Dose: 40 mg Benzonatate (Tessalon Perles) 200 mg PO TID PRN PRN Reason: Cough Last Admin: 10/02/16 14:07 Dose: 200 mg Calcium Carbonate (Oscal) 500 mg PO BIDWM [facility] Last Admin: 11/16/16 08:37 Dose: 500 mg Cinacalcet (Sensipar) 30 mg PO DAILY [facility] Last Admin: 11/16/16 08:38 Dose: 30 mg Collagenase (Santyl) 1 applic TOP DAILY [facility] Last Admin: 11/16/16 10:10 Dose: 1 applic Diphenhydramine HCl (Benadryl) 25 mg PO Q6 PRN PRN Reason: Itching / Pruritus Last Admin: 11/12/16 08:34 Dose: 25 mg Epoetin Tha (Procrit) 20,000 unit IV MWF [facility] Last Admin: 11/15/16 08:38 Dose: 20,000 unit Ergocalciferol (Drisdol 50,000 Intl Units Cap) 1 cap PO WED [facility] Last Admin: 11/13/16 08:42 Dose: 1 cap Fluconazole (Diflucan) 100 mg PO DAILY [facility] Last Admin: 11/16/16 08:34 Dose: 100 mg Gabapentin (Neurontin) 300 mg PO TID [facility] Last Admin: 11/16/16 08:37 Dose: 300 mg Hydrocortisone (Anusol-Hc) 1 applic OR BID PRN PRN Reason: Inflammation Hydromorphone HCl (Dilaudid) 1 mg IVP Q3H PRN PRN Reason: Pain, severe (8-10) Last Admin: 11/16/16 08:33 Dose: 1 mg Meropenem 500 mg/ Sodium (Chloride) 100 mls @ 100 mls/hr IVPB DAILY@0100 [facility] Last Admin: 11/16/16 01:53 Dose: 100 mls/hr Sodium Chloride (Sodium Chloride 0.9%) 1,000 mls @ 10 mls/hr IV .Q24H [facility] Last Admin: 11/14/16 17:40 Dose: Not Given Daptomycin 650 mg/ Sodium (Chloride) 100 mls @ 100 mls/hr IV [facility] [place] Stop: 11/18/16 09:01 Last Admin: 11/15/16 16:59 Dose: 100 mls/hr Gentamicin Sulfate/Sodium Chloride (Gentamicin 100mg/100ml Ns) 100 mg in 100 mls @ 100 mls/hr IVPB [facility] [place] Last Admin: 11/15/16 12:49 Dose: 100 mls/hr Tigecycline 25 mg/ Sodium (Chloride) 100 mls @ 100 mls/hr IVPB Q12 [facility] Last Admin: 11/16/16 10:33 Dose: 100 mls/hr Argatroban 250 mg/ Sodium (Chloride) 252.5 mls @ 5.95 mls/hr IV .Q24H [facility]; 2 MCG/KG/MIN PRN Reason: Protocol Last Admin: 11/15/16 22:29 Dose: 5.95 mls/hr Insulin Detemir (Levemir) 26 units SC HS [facility] Last Admin: 11/15/16 22:43 Dose: 26 units Insulin Human Lispro (Humalog) 6 units SC AC [facility] Last Admin: 11/16/16 08:00 Dose: 6 units Lidocaine (Lidoderm) 1 ea TD DAILY [facility] Last Admin: 11/16/16 08:35 Dose: 1 ea Nystatin (Nystop Topical Powder) 1 applic TOP BID [facility] Last Admin: 11/16/16 08:37 Dose: 1 applic Ondansetron HCl (Zofran Inj) 4 mg IVP Q6 PRN PRN Reason: Nausea/Vomiting Last Admin: 09/19/16 10:26 Dose: 4 mg Pantoprazole Sodium (Protonix Ec Tab) 40 mg PO DAILY [facility] Last Admin: 11/16/16 08:37 Dose: 40 mg Sevelamer HCl (Renagel) 1,600 mg PO TID [facility] Last Admin: 11/16/16 08:38 Dose: 1,600 mg Topiramate (Topamax) 50 mg PO BID [facility] Last Admin: 11/16/16 08:38 Dose: 50 mg Vitamin B Complex/Vit C/Folic Acid (Nephro-Ajay) 1 tab PO DAILY [facility] Last Admin: 11/16/16 08:37 Dose: 1 tab - Labs Labs: 11/16/16 05:00 11/16/16 05:00 PT 14.2 Seconds (9.8-13.1) H 11/15/16 22:13 INR 1.3 (0.9-1.2) H 11/15/16 22:13 APTT 54.6 Seconds (25.6-37.1) H D 11/16/16 10:00
[2016-11-16] MEDS: Santyl Collagenase OINTMENT TOP SCH (10:10)
[2016-11-16] MEDS: SODIUM CHLORIDE 0.9% IVPB SCH ×2 (10:33→23:02)
[2016-11-16] MEDS: TIGECYCLINE IVPB SCH ×2 (10:33→23:02)
--- NOTE | 2016-11-16 12:36 | CP.PCM.PN ---
Subjective - Date & Time of Evaluation Date of Evaluation: 11/16/16 Time of Evaluation: 12:00 - Subjective Subjective: Appears comfortable in bed Objective - Vital Signs/Intake and Output Vital Signs (last 24 hours): Temp Pulse Resp BP Pulse Ox 98.2 F 110 H 12 106/79 99 11/16/16 08:00 11/16/16 10:00 11/16/16 10:00 11/16/16 10:00 11/16/16 10:00 Intake and Output: 11/16/16 11/16/16 06:59 18:59 Intake Total 130 310 Output Total 0 Balance 130 310 - Medications Medications: Current Medications Acetaminophen (Tylenol 325mg Tab) 650 mg PO Q4 PRN PRN Reason: Fever >100.4 F Last Admin: 10/02/16 16:27 Dose: 650 mg Acetaminophen (Tylenol 325mg Tab) 650 mg PO Q4 PRN PRN Reason: Pain, moderate (4-7) Last Admin: 09/16/16 22:34 Dose: 650 mg Albuterol Sulfate (Albuterol 0.083% Inhal Barbie (2.5 Mg/3 Ml) Ud) 2.5 mg INH RQ4 PRN PRN Reason: Shortness of Breath Albuterol/Ipratropium (Duoneb 3 Mg/0.5 Mg (3 Ml) Ud) 3 ml INH RQ4 PRN PRN Reason: Shortness of Breath Last Admin: 11/11/16 07:39 Dose: 3 ml Aspirin (Ecotrin) 81 mg PO DAILY [facility] Last Admin: 11/16/16 08:35 Dose: 81 mg Atorvastatin Calcium (Lipitor) 40 mg PO DAILY [facility] Last Admin: 11/16/16 08:36 Dose: 40 mg Benzonatate (Tessalon Perles) 200 mg PO TID PRN PRN Reason: Cough Last Admin: 10/02/16 14:07 Dose: 200 mg Calcium Carbonate (Oscal) 500 mg PO BIDWM [facility] Last Admin: 11/16/16 08:37 Dose: 500 mg Cinacalcet (Sensipar) 30 mg PO DAILY [facility] Last Admin: 11/16/16 08:38 Dose: 30 mg Collagenase (Santyl) 1 applic TOP DAILY [facility] Last Admin: 11/16/16 10:10 Dose: 1 applic Diphenhydramine HCl (Benadryl) 25 mg PO Q6 PRN PRN Reason: Itching / Pruritus Last Admin: 11/12/16 08:34 Dose: 25 mg Epoetin Tha (Procrit) 20,000 [place] [facility] [place] Last Admin: 11/15/16 08:38 Dose: 20,000 unit Ergocalciferol (Drisdol 50,000 Intl Units Cap) 1 cap PO WED [facility] Last Admin: 11/13/16 08:42 Dose: 1 cap Fluconazole (Diflucan) 100 mg PO DAILY [facility] Last Admin: 11/16/16 08:34 Dose: 100 mg Gabapentin (Neurontin) 300 mg PO TID [facility] Last Admin: 11/16/16 08:37 Dose: 300 mg Hydrocortisone (Anusol-Hc) 1 applic [place] BID PRN PRN Reason: Inflammation Hydromorphone HCl (Dilaudid) 1 mg IVP Q3H PRN PRN Reason: Pain, severe (8-10) Last Admin: 11/16/16 08:33 Dose: 1 mg Meropenem 500 mg/ Sodium (Chloride) 100 mls @ 100 mls/hr IVPB DAILY@0100 [facility] Last Admin: 11/16/16 01:53 Dose: 100 mls/hr Sodium Chloride (Sodium Chloride 0.9%) 1,000 mls @ 10 mls/hr IV .Q24H [facility] Last Admin: 11/14/16 17:40 Dose: Not Given Daptomycin 650 mg/ Sodium (Chloride) 100 mls @ 100 mls/hr [place] [facility] [place]: 11/18/16 09:01 Last Admin: 11/15/16 16:59 Dose: 100 mls/hr Gentamicin Sulfate/Sodium Chloride (Gentamicin 100mg/100ml Ns) 100 mg in 100 mls @ 100 mls/hr IVPB [facility] [place] Last Admin: 11/15/16 12:49 Dose: 100 mls/hr Tigecycline 25 mg/ Sodium (Chloride) 100 mls @ 100 mls/hr IVPB Q12 [facility] Last Admin: 11/16/16 10:33 Dose: 100 mls/hr Argatroban 250 mg/ Sodium (Chloride) 252.5 mls @ 5.95 mls/hr IV .Q24H [facility]; 2 MCG/KG/MIN PRN Reason: Protocol Last Admin: 11/15/16 22:29 Dose: 5.95 mls/hr Insulin Detemir (Levemir) 26 units SC HS [facility] Last Admin: 11/15/16 22:43 Dose: 26 units Insulin Human Lispro (Humalog) 6 units SC AC [facility] Last Admin: 11/16/16 08:00 Dose: 6 units Lidocaine (Lidoderm) 1 ea TD DAILY [facility] Last Admin: 11/16/16 08:35 Dose: 1 ea Nystatin (Nystop Topical Powder) 1 applic TOP BID [facility] Last Admin: 11/16/16 08:37 Dose: 1 applic Ondansetron HCl (Zofran Inj) 4 mg IVP Q6 PRN PRN Reason: Nausea/Vomiting Last Admin: 09/19/16 10:26 Dose: 4 mg Pantoprazole Sodium (Protonix Ec Tab) 40 mg PO DAILY [facility] Last Admin: 11/16/16 08:37 Dose: 40 mg Sevelamer HCl (Renagel) 1,600 mg PO TID [facility] Last Admin: 11/16/16 08:38 Dose: 1,600 mg Topiramate (Topamax) 50 mg PO BID [facility] Last Admin: 11/16/16 08:38 Dose: 50 mg Vitamin B Complex/Vit C/Folic Acid (Nephro-Ajay) 1 tab PO DAILY [facility] Last Admin: 11/16/16 08:37 Dose: 1 tab - Labs Labs: 11/16/16 05:00 11/16/16 05:00 PT 14.2 Seconds (9.8-13.1) H 11/15/16 22:13 INR 1.3 (0.9-1.2) H 11/15/16 22:13 APTT 54.6 Seconds (25.6-37.1) H D 11/16/16 10:00 - Respiratory Exam Additional comments: Lungs clear - Cardiovascular Exam Cardiovascular Exam: REGULAR RHYTHM Additional comments: Sinus tach 108/min - Extremities Exam Additional comments: B/L BKA Assessment and Plan - Assessment and Plan (Free Text) Assessment: ESRD on maintenance HD S/P Rt BKA Stump wound Coagulopathy Receiving Argatroban drip Plan: K+ is slightly high. Suggest Kayexalate 30 g today Follow up labs in am HD MWF
[2016-11-16] MEDS ORDERED: Sod Polystyrene Sulf 15 gm/60 ml Oral Susp PO ONE (12:42)
--- NOTE | 2016-11-16 13:11 | CP.PCM.PN ---
Subjective - Date & Time of Evaluation Date of Evaluation: 11/16/16 Time of Evaluation: 13:09 - Subjective Subjective: Patient is doing well on argatroban iv infusion - is now therapeutic. Iv tigacycline to continue along with iv meropenem and iv gentamicin (MWF) post HD. Dr. Mccormack's note appreciated. Dr. Armstrong ordered Kayexalate for elvated potassium (5.4) Will order CBC, CMP, PT/PTT for AM. Objective - Vital Signs/Intake and Output Vital Signs (last 24 hours): Temp Pulse Resp BP Pulse Ox 98.2 F 110 H 12 106/79 99 11/16/16 08:00 11/16/16 10:00 11/16/16 10:00 11/16/16 10:00 11/16/16 10:00 Intake and Output: 11/16/16 11/16/16 06:59 18:59 Intake Total 130 310 Output Total 0 Balance 130 310 - Medications Medications: Current Medications Acetaminophen (Tylenol 325mg Tab) 650 mg PO Q4 PRN PRN Reason: Fever >100.4 F Last Admin: 10/02/16 16:27 Dose: 650 mg Acetaminophen (Tylenol 325mg Tab) 650 mg PO Q4 PRN PRN Reason: Pain, moderate (4-7) Last Admin: 09/16/16 22:34 Dose: 650 mg Albuterol Sulfate (Albuterol 0.083% Inhal Barbie (2.5 Mg/3 Ml) Ud) 2.5 mg INH RQ4 PRN PRN Reason: Shortness of Breath Albuterol/Ipratropium (Duoneb 3 Mg/0.5 Mg (3 Ml) Ud) 3 ml INH RQ4 PRN PRN Reason: Shortness of Breath Last Admin: 11/11/16 07:39 Dose: 3 ml Aspirin (Ecotrin) 81 mg PO DAILY [facility] Last Admin: 11/16/16 08:35 Dose: 81 mg Atorvastatin Calcium (Lipitor) 40 mg PO DAILY [facility] Last Admin: 11/16/16 08:36 Dose: 40 mg Benzonatate (Tessalon Perles) 200 mg PO TID PRN PRN Reason: Cough Last Admin: 11/16/16 12:41 Dose: 200 mg Calcium Carbonate (Oscal) 500 mg PO BIDWM [facility] Last Admin: 11/16/16 08:37 Dose: 500 mg Cinacalcet (Sensipar) 30 mg PO DAILY [facility] Last Admin: 11/16/16 08:38 Dose: 30 mg Collagenase (Santyl) 1 applic TOP DAILY [facility] Last Admin: 11/16/16 10:10 Dose: 1 applic Diphenhydramine HCl (Benadryl) 25 mg PO Q6 PRN PRN Reason: Itching / Pruritus Last Admin: 11/12/16 08:34 Dose: 25 mg Epoetin Tha (Procrit) 20,000 [place] [facility] [place] Last Admin: 11/15/16 08:38 Dose: 20,000 unit Ergocalciferol (Drisdol 50,000 Intl Units Cap) 1 cap PO WED [facility] Last Admin: 11/13/16 08:42 Dose: 1 cap Fluconazole (Diflucan) 100 mg PO DAILY [facility] Last Admin: 11/16/16 08:34 Dose: 100 mg Gabapentin (Neurontin) 300 mg PO TID [facility] Last Admin: 11/16/16 12:40 Dose: 300 mg Hydrocortisone (Anusol-Hc) 1 applic [place] BID PRN PRN Reason: Inflammation Hydromorphone HCl (Dilaudid) 1 mg IVP Q3H PRN PRN Reason: Pain, severe (8-10) Last Admin: 11/16/16 12:50 Dose: 1 mg Meropenem 500 mg/ Sodium (Chloride) 100 mls @ 100 mls/hr IVPB DAILY@0100 [facility] Last Admin: 11/16/16 01:53 Dose: 100 mls/hr Sodium Chloride (Sodium Chloride 0.9%) 1,000 mls @ 10 mls/hr IV .Q24H [facility] Last Admin: 11/14/16 17:40 Dose: Not Given Daptomycin 650 mg/ Sodium (Chloride) 100 mls @ 100 mls/hr [place] [facility] [place]: 11/18/16 09:01 Last Admin: 11/15/16 16:59 Dose: 100 mls/hr Gentamicin Sulfate/Sodium Chloride (Gentamicin 100mg/100ml Ns) 100 mg in 100 mls @ 100 mls/hr [place]PB [facility] [place] Last Admin: 11/15/16 12:49 Dose: 100 mls/hr Tigecycline 25 mg/ Sodium (Chloride) 100 mls @ 100 mls/hr IVPB Q12 [facility] Last Admin: 11/16/16 10:33 Dose: 100 mls/hr Argatroban 250 mg/ Sodium (Chloride) 252.5 mls @ 5.95 mls/hr IV .Q24H [facility]; 2 MCG/KG/MIN PRN Reason: Protocol Last Admin: 11/15/16 22:29 Dose: 5.95 mls/hr Insulin Detemir (Levemir) 26 units SC HS [facility] Last Admin: 11/15/16 22:43 Dose: 26 units Insulin Human Lispro (Humalog) 6 units SC AC [facility] Last Admin: 11/16/16 12:00 Dose: 6 units Lidocaine (Lidoderm) 1 ea TD DAILY [facility] Last Admin: 11/16/16 08:35 Dose: 1 ea Nystatin (Nystop Topical Powder) 1 applic TOP BID [facility] Last Admin: 11/16/16 08:37 Dose: 1 applic Ondansetron HCl (Zofran Inj) 4 mg IVP Q6 PRN PRN Reason: Nausea/Vomiting Last Admin: 09/19/16 10:26 Dose: 4 mg Pantoprazole Sodium (Protonix Ec Tab) 40 mg PO DAILY [facility] Last Admin: 11/16/16 08:37 Dose: 40 mg Sevelamer HCl (Renagel) 1,600 mg PO TID [facility] Last Admin: 11/16/16 12:41 Dose: 1,600 mg Topiramate (Topamax) 50 mg PO BID [facility] Last Admin: 11/16/16 08:38 Dose: 50 mg Vitamin B Complex/Vit C/Folic Acid (Nephro-Ajay) 1 tab PO DAILY [facility] Last Admin: 11/16/16 08:37 Dose: 1 tab - Labs Labs: 11/16/16 05:00 11/16/16 05:00 PT 14.2 Seconds (9.8-13.1) H 11/15/16 22:13 INR 1.3 (0.9-1.2) H 11/15/16 22:13 APTT 70.9 Seconds (25.6-37.1) H D 11/16/16 12:20 - Constitutional Appears: Non-toxic, No Acute Distress - Head Exam Head Exam: NORMAL INSPECTION - Eye Exam Eye Exam: Normal appearance - ENT Exam ENT Exam: Mucous Membranes Moist - Neck Exam Neck Exam: Normal Inspection - Respiratory Exam Respiratory Exam: Clear to Ausculation Bilateral, NORMAL BREATHING PATTERN - Cardiovascular Exam Cardiovascular Exam: REGULAR RHYTHM, +S1, +S2 - GI/Abdominal Exam GI & Abdominal Exam: Soft - Back Exam Back Exam: NORMAL INSPECTION - Neurological Exam Neurological Exam: Alert, Awake, CN II-XII Intact, Oriented x3 - Psychiatric Exam Psychiatric exam: Normal Affect, Normal Mood - Skin Skin Exam: Dry, Normal Color Assessment and Plan (1) Status post below knee amputation of right lower extremity Status: Acute (2) ESRD (end stage renal disease) on dialysis Status: Chronic (3) DM type 2 (diabetes mellitus, type 2) Status: Chronic (4) Coagulopathy Status: Chronic (5) Peripheral arterial occlusive disease Status: Chronic - Assessment and Plan (Free Text) Plan: Continue present anticoagulaion with argatroban for coagulopathy Labs tomorrow am. Nuclear bone scan on Mon. To OR for debridement of sound on 11/19/. Continue present antibiotics for Klebsiella infection of surgical site R BKa.
[2016-11-16] MEDS: Insulin Detemir 100 Units/ml Inj SC SCH (22:46)
--- NOTE | 2016-11-17 00:19 | CP.PCM.PN ---
Subjective - Date & Time of Evaluation Date of Evaluation: 11/16/16 Time of Evaluation: 21:00 - Subjective Subjective: Patient is doing better on Argatroban, she is on Gentamycin and Tygacil. She is not suffering from pain. There is no Seizures. She is on Topamax 50 mg BID. She is receiving Hemodialysis for ESRD and received today Kayexelate for mildly elevated serum Potassium. Objective - Vital Signs/Intake and Output Vital Signs (last 24 hours): Temp Pulse Resp BP Pulse Ox 98.4 F 108 H 16 110/72 98 11/16/16 23:35 11/17/16 00:00 11/17/16 00:00 11/17/16 00:00 11/16/16 23:35 Intake and Output: 11/16/16 11/17/16 18:59 06:59 Intake Total 1071 320 Balance 1071 320 - Medications Medications: Current Medications Acetaminophen (Tylenol 325mg Tab) 650 mg PO Q4 PRN PRN Reason: Fever >100.4 F Last Admin: 10/02/16 16:27 Dose: 650 mg Acetaminophen (Tylenol 325mg Tab) 650 mg PO Q4 PRN PRN Reason: Pain, moderate (4-7) Last Admin: 09/16/16 22:34 Dose: 650 mg Albuterol Sulfate (Albuterol 0.083% Inhal Barbie (2.5 Mg/3 Ml) Ud) 2.5 mg INH RQ4 PRN PRN Reason: Shortness of Breath Albuterol/Ipratropium (Duoneb 3 Mg/0.5 Mg (3 Ml) Ud) 3 ml INH RQ4 PRN PRN Reason: Shortness of Breath Last Admin: 11/11/16 07:39 Dose: 3 ml Aspirin (Ecotrin) 81 mg PO DAILY [facility] Last Admin: 11/16/16 08:35 Dose: 81 mg Atorvastatin Calcium (Lipitor) 40 mg PO DAILY [facility] Last Admin: 11/16/16 08:36 Dose: 40 mg Benzonatate (Tessalon Perles) 200 mg PO TID PRN PRN Reason: Cough Last Admin: 11/16/16 12:41 Dose: 200 mg Calcium Carbonate (Oscal) 500 mg PO BIDWM [facility] Last Admin: 11/16/16 17:17 Dose: 500 mg Cinacalcet (Sensipar) 30 mg PO DAILY [facility] Last Admin: 11/16/16 08:38 Dose: 30 mg Collagenase (Santyl) 1 applic TOP DAILY [facility] Last Admin: 11/16/16 10:10 Dose: 1 applic Diphenhydramine HCl (Benadryl) 25 mg PO Q6 PRN PRN Reason: Itching / Pruritus Last Admin: 11/12/16 08:34 Dose: 25 mg Epoetin Tha (Procrit) 20,000 unit [place] [facility] Last Admin: 11/15/16 08:38 Dose: 20,000 unit Ergocalciferol (Drisdol 50,000 Intl Units Cap) 1 cap PO WED [facility] Last Admin: 11/13/16 08:42 Dose: 1 cap Fluconazole (Diflucan) 100 mg PO DAILY [facility] Last Admin: 11/16/16 08:34 Dose: 100 mg Gabapentin (Neurontin) 300 mg PO TID [facility] Last Admin: 11/16/16 17:16 Dose: 300 mg Hydrocortisone (Anusol-Hc) 1 applic [place] BID PRN PRN Reason: Inflammation Hydromorphone HCl (Dilaudid) 1 mg IVP Q3H PRN PRN Reason: Pain, severe (8-10) Last Admin: 11/16/16 20:58 Dose: 1 mg Meropenem 500 mg/ Sodium (Chloride) 100 mls @ 100 mls/hr IVPB DAILY@0100 [facility] Last Admin: 11/16/16 01:53 Dose: 100 mls/hr Sodium Chloride (Sodium Chloride 0.9%) 1,000 mls @ 10 mls/hr IV .Q24H [facility] Last Admin: 11/14/16 17:40 Dose: Not Given Daptomycin 650 mg/ Sodium (Chloride) 100 mls @ 100 mls/hr [place] [facility] Stop: 11/18/16 09:01 Last Admin: 11/15/16 16:59 Dose: 100 mls/hr Gentamicin Sulfate/Sodium Chloride (Gentamicin 100mg/100ml Ns) 100 mg in 100 mls @ 100 mls/hr IVPB [facility] Last Admin: 11/15/16 12:49 Dose: 100 mls/hr Tigecycline 25 mg/ Sodium (Chloride) 100 mls @ 100 mls/hr IVPB Q12 [facility] Last Admin: 11/16/16 23:02 Dose: 100 mls/hr Argatroban 250 mg/ Sodium (Chloride) 252.5 mls @ 5.95 mls/hr IV .Q24H [facility]; 2 MCG/KG/MIN PRN Reason: Protocol Last Admin: 11/15/16 22:29 Dose: 5.95 mls/hr Insulin Detemir (Levemir) 26 units SC HS [facility] Last Admin: 11/16/16 22:46 Dose: 26 units Insulin Human Lispro (Humalog) 6 units SC AC [facility] Last Admin: 11/16/16 17:16 Dose: 6 units Lidocaine (Lidoderm) 1 ea TD DAILY [facility] Last Admin: 11/16/16 08:35 Dose: 1 ea Nystatin (Nystop Topical Powder) 1 applic TOP BID [facility] Last Admin: 11/16/16 17:17 Dose: 1 applic Ondansetron HCl (Zofran Inj) 4 mg IVP Q6 PRN PRN Reason: Nausea/Vomiting Last Admin: 09/19/16 10:26 Dose: 4 mg Pantoprazole Sodium (Protonix Ec Tab) 40 mg PO DAILY [facility] Last Admin: 11/16/16 08:37 Dose: 40 mg Sevelamer HCl (Renagel) 1,600 mg PO TID [facility] Last Admin: 11/16/16 17:17 Dose: 1,600 mg Topiramate (Topamax) 50 mg PO BID [facility] Last Admin: 11/16/16 17:17 Dose: 50 mg Vitamin B Complex/Vit C/Folic Acid (Nephro-Ajay) 1 tab PO DAILY [facility] Last Admin: 11/16/16 08:37 Dose: 1 tab - Labs Labs: 11/16/16 05:00 11/16/16 05:00 PT 14.2 Seconds (9.8-13.1) H 11/15/16 22:13 INR 1.3 (0.9-1.2) H 11/15/16 22:13 APTT 70.9 Seconds (25.6-37.1) H D 11/16/16 12:20 Assessment and Plan (1) Diabetes Status: Chronic (2) ESRD (end stage renal disease) Status: Chronic (3) Cellulitis of leg Status: Chronic (4) Hyperlipidemia Status: Chronic (5) Back pain Status: Acute (6) Bacteremia due to Gram-negative bacteria Status: Acute (7) Diabetes mellitus type 2 with peripheral artery disease Status: Acute (8) PVD (peripheral vascular disease) Status: Acute (9) Osteomyelitis of right leg Status: Acute
[2016-11-17] MEDS: Meropenem 500 MG in Sodium Chloride 0.9% 100 ML IVPB SCH (00:22)
--- NOTE | 2016-11-17 02:40 | CP.PCM.PN ---
Subjective - Date & Time of Evaluation Date of Evaluation: 11/16/16 Time of Evaluation: 15:00 - Subjective Subjective: Covering Dr. Shepard No complaints. Transferred to ICU for argatroban drip; currently therapeutic. Objective - Vital Signs/Intake and Output Vital Signs (last 24 hours): Temp Pulse Resp BP Pulse Ox 98.4 F 108 H 16 110/72 98 11/16/16 23:35 11/17/16 00:00 11/17/16 00:00 11/17/16 00:00 11/16/16 23:35 Intake and Output: 11/16/16 11/17/16 18:59 06:59 Intake Total 1071 320 Balance 1071 320 - Medications Medications: Current Medications Acetaminophen (Tylenol 325mg Tab) 650 mg PO Q4 PRN PRN Reason: Fever >100.4 F Last Admin: 10/02/16 16:27 Dose: 650 mg Acetaminophen (Tylenol 325mg Tab) 650 mg PO Q4 PRN PRN Reason: Pain, moderate (4-7) Last Admin: 09/16/16 22:34 Dose: 650 mg Albuterol Sulfate (Albuterol 0.083% Inhal Barbie (2.5 Mg/3 Ml) Ud) 2.5 mg INH RQ4 PRN PRN Reason: Shortness of Breath Albuterol/Ipratropium (Duoneb 3 Mg/0.5 Mg (3 Ml) Ud) 3 ml INH RQ4 PRN PRN Reason: Shortness of Breath Last Admin: 11/11/16 07:39 Dose: 3 ml Aspirin (Ecotrin) 81 mg PO DAILY [facility] Last Admin: 11/16/16 08:35 Dose: 81 mg Atorvastatin Calcium (Lipitor) 40 mg PO DAILY [facility] Last Admin: 11/16/16 08:36 Dose: 40 mg Benzonatate (Tessalon Perles) 200 mg PO TID PRN PRN Reason: Cough Last Admin: 11/16/16 12:41 Dose: 200 mg Calcium Carbonate (Oscal) 500 mg PO BIDWM [facility] Last Admin: 11/16/16 17:17 Dose: 500 mg Cinacalcet (Sensipar) 30 mg PO DAILY [facility] Last Admin: 11/16/16 08:38 Dose: 30 mg Collagenase (Santyl) 1 applic TOP DAILY [facility] Last Admin: 11/16/16 10:10 Dose: 1 applic Diphenhydramine HCl (Benadryl) 25 mg PO Q6 PRN PRN Reason: Itching / Pruritus Last Admin: 11/12/16 08:34 Dose: 25 mg Epoetin Tha (Procrit) 20,000 unit IV [place] [facility] [place] Last Admin: 11/15/16 08:38 Dose: 20,000 unit Ergocalciferol (Drisdol 50,000 Intl Units Cap) 1 cap PO WED [facility] Last Admin: 11/13/16 08:42 Dose: 1 cap Fluconazole (Diflucan) 100 mg PO DAILY [facility] Last Admin: 11/16/16 08:34 Dose: 100 mg Gabapentin (Neurontin) 300 mg PO TID [facility] Last Admin: 11/16/16 17:16 Dose: 300 mg Hydrocortisone (Anusol-Hc) 1 applic [place] BID PRN PRN Reason: Inflammation Hydromorphone HCl (Dilaudid) 1 mg IVP Q3H PRN PRN Reason: Pain, severe (8-10) Last Admin: 11/16/16 20:58 Dose: 1 mg Meropenem 500 mg/ Sodium (Chloride) 100 mls @ 100 mls/hr IVPB DAILY@0100 [facility] Last Admin: 11/17/16 00:22 Dose: 100 mls/hr Sodium Chloride (Sodium Chloride 0.9%) 1,000 mls @ 10 mls/hr IV .Q24H [facility] Last Admin: 11/14/16 17:40 Dose: Not Given Daptomycin 650 mg/ Sodium (Chloride) 100 mls @ 100 mls/hr IV [place] [facility] [place] Stop: 11/18/16 09:01 Last Admin: 11/15/16 16:59 Dose: 100 mls/hr Gentamicin Sulfate/Sodium Chloride (Gentamicin 100mg/100ml Ns) 100 mg in 100 mls @ 100 mls/hr IVPB [place] [facility] [place] Last Admin: 11/15/16 12:49 Dose: 100 mls/hr Tigecycline 25 mg/ Sodium (Chloride) 100 mls @ 100 mls/hr IVPB Q12 [facility] Last Admin: 11/16/16 23:02 Dose: 100 mls/hr Argatroban 250 mg/ Sodium (Chloride) 252.5 mls @ 5.95 mls/hr IV .Q24H [facility]; 2 MCG/KG/MIN PRN Reason: Protocol Last Admin: 11/15/16 22:29 Dose: 5.95 mls/hr Insulin Detemir (Levemir) 26 units SC HS [facility] Last Admin: 11/16/16 22:46 Dose: 26 units Insulin Human Lispro (Humalog) 6 units SC AC [facility] Last Admin: 11/16/16 17:16 Dose: 6 units Lidocaine (Lidoderm) 1 ea TD DAILY [facility] Last Admin: 11/16/16 08:35 Dose: 1 ea Nystatin (Nystop Topical Powder) 1 applic TOP BID [facility] Last Admin: 11/16/16 17:17 Dose: 1 applic Ondansetron HCl (Zofran Inj) 4 mg IVP Q6 PRN PRN Reason: Nausea/Vomiting Last Admin: 09/19/16 10:26 Dose: 4 mg Pantoprazole Sodium (Protonix Ec Tab) 40 mg PO DAILY [facility] Last Admin: 11/16/16 08:37 Dose: 40 mg Sevelamer HCl (Renagel) 1,600 mg PO TID [facility] Last Admin: 11/16/16 17:17 Dose: 1,600 mg Topiramate (Topamax) 50 mg PO BID [facility] Last Admin: 11/16/16 17:17 Dose: 50 mg Vitamin B Complex/Vit C/Folic Acid (Nephro-Ajay) 1 tab PO DAILY [facility] Last Admin: 11/16/16 08:37 Dose: 1 tab - Labs Labs: 11/16/16 05:00 11/16/16 05:00 PT 14.2 Seconds (9.8-13.1) H 11/15/16 22:13 INR 1.3 (0.9-1.2) H 11/15/16 22:13 APTT 70.9 Seconds (25.6-37.1) H D 11/16/16 12:20 - Head Exam Head Exam: ATRAUMATIC - Eye Exam Eye Exam: Normal appearance - ENT Exam ENT Exam: Mucous Membranes Dry - Respiratory Exam Respiratory Exam: NORMAL BREATHING PATTERN - Cardiovascular Exam Cardiovascular Exam: +S1, +S2 - GI/Abdominal Exam GI & Abdominal Exam: Normal Bowel Sounds Assessment and Plan (1) Suspected heparin induced thrombocytopenia in hospitalized patient Assessment & Plan: on argatroban drip; currently therapeutic for surgical debridement Friday; argatroban should be held Friday night. Status: Acute
[2016-11-17 06:45] LABS: BASO # 0.1 K/uL (0.0-0.2); BASO % 0.8 % (0.0-2.0); EOS # 0.7 K/uL (0.0-0.7); EOS % 6.7 % (0.0-4.0); HEMATOCRIT 33.8 % (34.0-47.0); LYMPH # 2.5 K/uL (1.0-4.3); LYMPH % 23.2 % (20.0-40.0); MEAN CELL VOLUME 102.6 fl (81.0-99.0); MEAN CORPUSCULAR HEMOGLOBIN 32.9 pg (27.0-31.0); MEAN CORPUSCULAR HGB CONC 32.1 g/dL (33.0-37.0); MEAN PLATELET VOLUME 9.6 fl (7.2-11.7); MONO # 1.4 K/uL (0.0-0.8); NEUT # 6.2 K/uL (1.8-7.0); NEUT % 56.3 % (50.0-75.0); RED CELL DISTRIBUTION WIDTH 24.9 % (11.5-14.5)
[2016-11-17] MEDS: Insulin Lispro (humaLOG) 100 Units/ml Inj SC SCH ×3 (06:57→16:30)
[2016-11-17] MEDS: SODIUM CHLORIDE 0.9% IVPB SCH ×2 (08:29→20:38)
[2016-11-17] MEDS: TIGECYCLINE IVPB SCH ×2 (08:29→20:38)
[2016-11-17] MEDS: Lidocaine 5% Patch TD SCH (08:30)
[2016-11-17] MEDS: Pantoprazole 40 mg EC Tab PO SCH (08:34)
[2016-11-17] MEDS: Santyl Collagenase OINTMENT TOP SCH (08:35)
[2016-11-17] MEDS: Multivitamin Vitamin B Complex (Nephro-Vite) Tab PO SCH (08:39)
--- NOTE | 2016-11-17 09:17 | CP.PCM.PN ---
<AneudyJacques de - Last Filed: 11/17/16 09:14> Subjective - Date & Time of Evaluation Date of Evaluation: 11/17/16 Time of Evaluation: 09:15 - Subjective Subjective: Surgery Progress note. Dr. Mccormack Pt seen and examined at bedside. No acute events overnight. Patient understands and agrees with the plan. Patient states that she is resting and is comfortable. No new complaints. No N/V/D. No F/C. No GAFFNEY. No CP/SOB. Objective - Vital Signs/Intake and Output Vital Signs (last 24 hours): Temp Pulse Resp BP Pulse Ox 98.8 F 103 H 10 L 141/70 98 11/17/16 04:00 11/17/16 06:00 11/17/16 06:00 11/17/16 06:00 11/16/16 23:35 Intake and Output: 11/17/16 11/17/16 06:59 18:59 Intake Total 460 Balance 460 - Medications Medications: Current Medications Acetaminophen (Tylenol 325mg Tab) 650 mg PO Q4 PRN PRN Reason: Fever >100.4 F Last Admin: 10/02/16 16:27 Dose: 650 mg Acetaminophen (Tylenol 325mg Tab) 650 mg PO Q4 PRN PRN Reason: Pain, moderate (4-7) Last Admin: 09/16/16 22:34 Dose: 650 mg Albuterol Sulfate (Albuterol 0.083% Inhal Barbie (2.5 Mg/3 Ml) Ud) 2.5 mg INH RQ4 PRN PRN Reason: Shortness of Breath Albuterol/Ipratropium (Duoneb 3 Mg/0.5 Mg (3 Ml) Ud) 3 ml INH RQ4 PRN PRN Reason: Shortness of Breath Last Admin: 11/11/16 07:39 Dose: 3 ml Aspirin (Ecotrin) 81 mg PO DAILY [facility] Last Admin: 11/16/16 08:35 Dose: 81 mg Atorvastatin Calcium (Lipitor) 40 mg PO DAILY [facility] Last Admin: 11/17/16 08:31 Dose: 40 mg Benzonatate (Tessalon Perles) 200 mg PO TID PRN PRN Reason: Cough Last Admin: 11/16/16 12:41 Dose: 200 mg Calcium Carbonate (Oscal) 500 mg PO BIDWM [facility] Last Admin: 11/17/16 08:34 Dose: 500 mg Cinacalcet (Sensipar) 30 mg PO DAILY [facility] Last Admin: 11/17/16 08:36 Dose: 30 mg Collagenase (Santyl) 1 applic TOP DAILY [facility] Last Admin: 11/17/16 08:35 Dose: 1 applic Diphenhydramine HCl (Benadryl) 25 mg PO Q6 PRN PRN Reason: Itching / Pruritus Last Admin: 11/12/16 08:34 Dose: 25 mg Epoetin Tha (Procrit) 20,000 unit IV [facility] Last Admin: 11/15/16 08:38 Dose: 20,000 unit Ergocalciferol (Drisdol 50,000 Intl Units Cap) 1 cap PO WED [facility] Last Admin: 11/13/16 08:42 Dose: 1 cap Fluconazole (Diflucan) 100 mg PO DAILY [facility] Last Admin: 11/17/16 08:30 Dose: 100 mg Gabapentin (Neurontin) 300 mg PO TID [facility] Last Admin: 11/17/16 08:31 Dose: 300 mg Hydrocortisone (Anusol-Hc) 1 applic [place] BID PRN PRN Reason: Inflammation Hydromorphone HCl (Dilaudid) 1 mg IVP Q3H PRN PRN Reason: Pain, severe (8-10) Last Admin: 11/17/16 08:48 Dose: 1 mg Meropenem 500 mg/ Sodium (Chloride) 100 mls @ 100 mls/hr IVPB DAILY@0100 [facility] Last Admin: 11/17/16 00:22 Dose: 100 mls/hr Sodium Chloride (Sodium Chloride 0.9%) 1,000 mls @ 10 mls/hr IV .Q24H [facility] Last Admin: 11/14/16 17:40 Dose: Not Given Daptomycin 650 mg/ Sodium (Chloride) 100 mls @ 100 mls/hr IV [facility] Stop: 11/18/16 09:01 Last Admin: 11/15/16 16:59 Dose: 100 mls/hr Gentamicin Sulfate/Sodium Chloride (Gentamicin 100mg/100ml Ns) 100 mg in 100 mls @ 100 mls/hr IVPB [facility] [place] Last Admin: 11/15/16 12:49 Dose: 100 mls/hr Tigecycline 25 mg/ Sodium (Chloride) 100 mls @ 100 mls/hr IVPB Q12 [facility] Last Admin: 11/17/16 08:29 Dose: 100 mls/hr Insulin Detemir (Levemir) 26 units SC HS [facility] Last Admin: 11/16/16 22:46 Dose: 26 units Insulin Human Lispro (Humalog) 6 units SC AC [facility] Last Admin: 11/17/16 06:57 Dose: 6 units Lidocaine (Lidoderm) 1 ea TD DAILY [facility] Last Admin: 11/17/16 08:30 Dose: 1 ea Nystatin (Nystop Topical Powder) 1 applic TOP BID [facility] Last Admin: 11/17/16 08:33 Dose: Not Given Ondansetron HCl (Zofran Inj) 4 mg IVP Q6 PRN PRN Reason: Nausea/Vomiting Last Admin: 09/19/16 10:26 Dose: 4 mg Pantoprazole Sodium (Protonix Ec Tab) 40 mg PO DAILY [facility] Last Admin: 11/17/16 08:34 Dose: 40 mg Sevelamer HCl (Renagel) 1,600 mg PO TID [facility] Last Admin: 11/17/16 08:34 Dose: 1,600 mg Topiramate (Topamax) 50 mg PO BID [facility] Last Admin: 11/17/16 08:36 Dose: 50 mg Vitamin B Complex/Vit C/Folic Acid (Nephro-Ajay) 1 tab PO DAILY [facility] Last Admin: 11/17/16 08:39 Dose: 1 tab - Labs Labs: 11/17/16 06:00 11/16/16 05:00 PT 14.2 Seconds (9.8-13.1) H 11/15/16 22:13 INR 1.3 (0.9-1.2) H 11/15/16 22:13 APTT 66.1 Seconds (25.6-37.1) H 11/17/16 06:00 - Constitutional Appears: Well, No Acute Distress - Head Exam Head Exam: ATRAUMATIC, NORMAL INSPECTION, NORMOCEPHALIC - Eye Exam Eye Exam: EOMI, Normal appearance - ENT Exam ENT Exam: Mucous Membranes Moist - Neck Exam Neck Exam: Full ROM - Respiratory Exam Respiratory Exam: NORMAL BREATHING PATTERN - GI/Abdominal Exam GI & Abdominal Exam: Soft. absent: Distended, Firm, Guarding, Rigid, Tenderness - Extremities Exam Additional comments: Right BKA site. Straight leg brace in place. Dressing clean, dry and intact. Was replaced yesterday afternoon. - Neurological Exam Neurological Exam: Alert, Awake, Oriented x3 Assessment and Plan - Assessment and Plan (Free Text) Assessment: 46yo F with PMHx of HTN, ESRD, PVD. General Surgery following s/p Right BKA on . POD 47. - 11/02: Wound Cx Right Stump - Multi drug resistant Klebsiella - 11/11: Wound Cx Right Stump - Multi drug resistant Klebsiella - CT: possible osteo - mild leukocytosis noted - f/u 3-phase Bone scan scheduled for Saturday 11/18 - Likely OR Sunday 11/19 for Washout, debridement and possible BKA revision pending results of bone scan. - Continue dressing changes as needed. Continue chemical debridement - Continue Medical management - Pain management - IV Abx as per ID Further recs as per Dr. aEston Amado PGY1 <Raffy Mccormack - Last Filed: 11/18/16 15:10> Objective - Vital Signs/Intake and Output Vital Signs (last 24 hours): Temp Pulse Resp BP Pulse Ox 97.8 F 101 H 16 146/82 98 11/18/16 08:00 11/18/16 08:00 11/18/16 08:00 11/18/16 08:00 11/18/16 08:00 Intake and Output: 11/18/16 11/18/16 06:59 18:59 Intake Total 802 560 Balance 802 560 - Medications Medications: Current Medications Acetaminophen (Tylenol 325mg Tab) 650 mg PO Q4 PRN PRN Reason: Fever >100.4 F Last Admin: 10/02/16 16:27 Dose: 650 mg Acetaminophen (Tylenol 325mg Tab) 650 mg PO Q4 PRN PRN Reason: Pain, moderate (4-7) Last Admin: 09/16/16 22:34 Dose: 650 mg Albuterol Sulfate (Albuterol 0.083% Inhal Barbie (2.5 Mg/3 Ml) Ud) 2.5 mg INH RQ4 PRN PRN Reason: Shortness of Breath Albuterol/Ipratropium (Duoneb 3 Mg/0.5 Mg (3 Ml) Ud) 3 ml INH RQ4 PRN PRN Reason: Shortness of Breath Last Admin: 11/11/16 07:39 Dose: 3 ml Aspirin (Ecotrin) 81 mg PO DAILY [facility] Last Admin: 11/16/16 08:35 Dose: 81 mg Atorvastatin Calcium (Lipitor) 40 mg PO DAILY [facility] Last Admin: 11/18/16 08:38 Dose: 40 mg Benzonatate (Tessalon Perles) 200 mg PO TID PRN PRN Reason: Cough Last Admin: 11/16/16 12:41 Dose: 200 mg Calcium Carbonate (Oscal) 500 mg PO BIDWM [facility] Last Admin: 11/18/16 08:38 Dose: 500 mg Cinacalcet (Sensipar) 30 mg PO DAILY [facility] Last Admin: 11/18/16 08:39 Dose: 30 mg Collagenase (Santyl) 1 applic TOP DAILY [facility] Last Admin: 11/17/16 08:35 Dose: 1 applic Diphenhydramine HCl (Benadryl) 25 mg PO Q6 PRN PRN Reason: Itching / Pruritus Last Admin: 11/12/16 08:34 Dose: 25 mg Epoetin Tha (Procrit) 20,000 unit IV MWF [facility] Last Admin: 11/15/16 08:38 Dose: 20,000 unit Ergocalciferol (Drisdol 50,000 Intl Units Cap) 1 cap PO WED [facility] Last Admin: 11/13/16 08:42 Dose: 1 cap Fluconazole (Diflucan) 100 mg PO DAILY [facility] Last Admin: 11/18/16 08:36 Dose: 100 mg Gabapentin (Neurontin) 300 mg PO TID [facility] Last Admin: 11/18/16 13:25 Dose: 300 mg Hydrocortisone (Anusol-Hc) 1 applic NE BID PRN PRN Reason: Inflammation Hydromorphone HCl (Dilaudid) 1 mg IVP Q3H PRN PRN Reason: Pain, severe (8-10) Last Admin: 11/18/16 12:29 Dose: 1 mg Meropenem 500 mg/ Sodium (Chloride) 100 mls @ 100 mls/hr IVPB DAILY@0100 [facility] Last Admin: 11/18/16 00:29 Dose: 100 mls/hr Sodium Chloride (Sodium Chloride 0.9%) 1,000 mls @ 10 mls/hr IV .Q24H [facility] Last Admin: 11/14/16 17:40 Dose: Not Given Gentamicin Sulfate/Sodium Chloride (Gentamicin 100mg/100ml Ns) 100 mg in 100 mls @ 100 mls/hr IVPB MWF [facility] Last Admin: 11/15/16 12:49 Dose: 100 mls/hr Tigecycline 25 mg/ Sodium (Chloride) 100 mls @ 100 mls/hr IVPB Q12 [facility] Last Admin: 11/18/16 08:47 Dose: 100 mls/hr Argatroban 250 mg/ Sodium (Chloride) 252.5 mls @ 3.25 mls/hr IV .Q24H [facility]; 0.5 MCG/KG/MIN PRN Reason: Protocol Stop: 11/18/16 23:55 Dextrose/Sodium Chloride (Dextrose 5%/0.45% Ns 1000 Ml) 1,000 mls @ 50 mls/hr IV .Q20H [facility] Sodium Chloride (Sodium Chloride 0.9%) 1,000 mls @ 15 mls/hr IV .Q24H [facility] Stop: 11/19/16 15:07 Insulin Detemir (Levemir) 18 units SC HS [facility] Insulin Human Lispro (Humalog) 4 units SC AC [facility] Lidocaine (Lidoderm) 1 ea TD DAILY [facility] Last Admin: 11/18/16 08:37 Dose: 1 ea Nystatin (Nystop Topical Powder) 1 applic TOP BID [facility] Last Admin: 11/18/16 08:38 Dose: 1 applic Ondansetron HCl (Zofran Inj) 4 mg IVP Q6 PRN PRN Reason: Nausea/Vomiting Last Admin: 09/19/16 10:26 Dose: 4 mg Pantoprazole Sodium (Protonix Ec Tab) 40 mg PO DAILY [facility] Last Admin: 11/18/16 08:38 Dose: 40 mg Sevelamer HCl (Renagel) 1,600 mg PO TID [facility] Last Admin: 11/18/16 13:25 Dose: 1,600 mg Topiramate (Topamax) 50 mg PO BID [facility] Last Admin: 11/18/16 08:39 Dose: 50 mg Vitamin B Complex/Vit C/Folic Acid (Nephro-Ajay) 1 tab PO DAILY [facility] Last Admin: 11/18/16 08:38 Dose: 1 tab - Labs Labs: 11/17/16 06:00 11/18/16 10:30 PT 14.2 Seconds (9.8-13.1) H 11/15/16 22:13 INR 1.3 (0.9-1.2) H 11/15/16 22:13 APTT 53.4 Seconds (25.6-37.1) H D 11/18/16 04:35 Assessment and Plan - Assessment and Plan (Free Text) Plan: Agree with above. Will await for bone scan results and plan based on the results.
--- NOTE | 2016-11-17 11:30 | CP.PCM.PN ---
Subjective - Date & Time of Evaluation Date of Evaluation: 11/17/16 Time of Evaluation: 11:19 - Subjective Subjective: Patient is in the ICU on an argatroban iv drip because the Eliquis was discontinued by the computer program on 11/09/16. There was no notification of a need to renew, and no one noticed the absence of this anticoagulant until . Since the patient is scheduled for surgery on 11/19/16 to debride and hopefullly save the right Bk amputation, it was necessary to use this iv anticoagulation to safely bridge the gap to surgery and to enhance circulation to the right residual limb. Again, at first un-noticed by the nursing and physician staff, the computer dropped the argatroban this morning. This medication has just been re-ordered by me, but we must watch closely to be sure that unwanted discontinuations do not occur. The protocol for argatroban is being followed. Patient is depressed about being in ICU, about the interruption in the physical therapy that had been proceeding to the point where she was propelling herself for short distances in a manual wheelchair, and she is worried about the possibility that the BK amputation will have to become an AK amputation. A bone scan is planned for tomorrow to evaluate for possible osteomyelitis. Meanwhile, patient is on iv daptomycin, gentamicin, meropenem, and tigacycline. She is also on po fluconazole. DM is being managed with short and long acting insulin by Dr. Ambrose. Hemodialysis is being managed by Dr. Alta Guadarrama and associates. Wound care right limb involves Santyl to problem areas and moist saline dressings daily. Objective - Vital Signs/Intake and Output Vital Signs (last 24 hours): Temp Pulse Resp BP Pulse Ox 98 F 107 H 12 143/28 L 98 11/17/16 08:00 11/17/16 10:00 11/17/16 10:00 11/17/16 08:00 11/16/16 23:35 Intake and Output: 11/17/16 11/17/16 06:59 18:59 Intake Total 460 594 Balance 460 594 - Medications Medications: Current Medications Acetaminophen (Tylenol 325mg Tab) 650 mg PO Q4 PRN PRN Reason: Fever >100.4 F Last Admin: 10/02/16 16:27 Dose: 650 mg Acetaminophen (Tylenol 325mg Tab) 650 mg PO Q4 PRN PRN Reason: Pain, moderate (4-7) Last Admin: 09/16/16 22:34 Dose: 650 mg Albuterol Sulfate (Albuterol 0.083% Inhal Barbie (2.5 Mg/3 Ml) Ud) 2.5 mg INH RQ4 PRN PRN Reason: Shortness of Breath Albuterol/Ipratropium (Duoneb 3 Mg/0.5 Mg (3 Ml) Ud) 3 ml INH RQ4 PRN PRN Reason: Shortness of Breath Last Admin: 11/11/16 07:39 Dose: 3 ml Aspirin (Ecotrin) 81 mg PO DAILY [facility] Last Admin: 11/16/16 08:35 Dose: 81 mg Atorvastatin Calcium (Lipitor) 40 mg PO DAILY [facility] Last Admin: 11/17/16 08:31 Dose: 40 mg Benzonatate (Tessalon Perles) 200 mg PO TID PRN PRN Reason: Cough Last Admin: 11/16/16 12:41 Dose: 200 mg Calcium Carbonate (Oscal) 500 mg PO BIDWM [facility] Last Admin: 11/17/16 08:34 Dose: 500 mg Cinacalcet (Sensipar) 30 mg PO DAILY [facility] Last Admin: 11/17/16 08:36 Dose: 30 mg Collagenase (Santyl) 1 applic TOP DAILY [facility] Last Admin: 11/17/16 08:35 Dose: 1 applic Diphenhydramine HCl (Benadryl) 25 mg PO Q6 PRN PRN Reason: Itching / Pruritus Last Admin: 11/12/16 08:34 Dose: 25 mg Epoetin Tha (Procrit) 20,000 unit IV MWF [facility] Last Admin: 11/15/16 08:38 Dose: 20,000 unit Ergocalciferol (Drisdol 50,000 Intl Units Cap) 1 cap PO WED [facility] Last Admin: 11/13/16 08:42 Dose: 1 cap Fluconazole (Diflucan) 100 mg PO DAILY [facility] Last Admin: 11/17/16 08:30 Dose: 100 mg Gabapentin (Neurontin) 300 mg PO TID [facility] Last Admin: 11/17/16 08:31 Dose: 300 mg Hydrocortisone (Anusol-Hc) 1 applic RI BID PRN PRN Reason: Inflammation Hydromorphone HCl (Dilaudid) 1 mg IVP Q3H PRN PRN Reason: Pain, severe (8-10) Last Admin: 11/17/16 08:48 Dose: 1 mg Meropenem 500 mg/ Sodium (Chloride) 100 mls @ 100 mls/hr IVPB DAILY@0100 [facility] Last Admin: 11/17/16 00:22 Dose: 100 mls/hr Sodium Chloride (Sodium Chloride 0.9%) 1,000 mls @ 10 mls/hr IV .Q24H [facility] Last Admin: 11/14/16 17:40 Dose: Not Given Daptomycin 650 mg/ Sodium (Chloride) 100 mls @ 100 mls/hr IV [facility] [place] Stop: 11/18/16 09:01 Last Admin: 11/15/16 16:59 Dose: 100 mls/hr Gentamicin Sulfate/Sodium Chloride (Gentamicin 100mg/100ml Ns) 100 mg in 100 mls @ 100 mls/hr IVPB [facility] [place] Last Admin: 11/15/16 12:49 Dose: 100 mls/hr Tigecycline 25 mg/ Sodium (Chloride) 100 mls @ 100 mls/hr IVPB Q12 [facility] Last Admin: 11/17/16 08:29 Dose: 100 mls/hr Argatroban 250 mg/ Sodium (Chloride) 252.5 mls @ 3.25 mls/hr IV .Q24H [facility]; 0.5 MCG/KG/MIN PRN Reason: Protocol Insulin Detemir (Levemir) 26 units SC HS [facility] Last Admin: 11/16/16 22:46 Dose: 26 units Insulin Human Lispro (Humalog) 6 units SC AC [facility] Last Admin: 11/17/16 06:57 Dose: 6 units Lidocaine (Lidoderm) 1 ea TD DAILY [facility] Last Admin: 11/17/16 08:30 Dose: 1 ea Nystatin (Nystop Topical Powder) 1 applic TOP BID [facility] Last Admin: 11/17/16 08:33 Dose: Not Given Ondansetron HCl (Zofran Inj) 4 mg IVP Q6 PRN PRN Reason: Nausea/Vomiting Last Admin: 09/19/16 10:26 Dose: 4 mg Pantoprazole Sodium (Protonix Ec Tab) 40 mg PO DAILY [facility] Last Admin: 11/17/16 08:34 Dose: 40 mg Sevelamer HCl (Renagel) 1,600 mg PO TID [facility] Last Admin: 11/17/16 08:34 Dose: 1,600 mg Topiramate (Topamax) 50 mg PO BID [facility] Last Admin: 11/17/16 08:36 Dose: 50 mg Vitamin B Complex/Vit C/Folic Acid (Nephro-Ajay) 1 tab PO DAILY [facility] Last Admin: 11/17/16 08:39 Dose: 1 tab - Labs Labs: 11/17/16 06:00 11/16/16 05:00 PT 14.2 Seconds (9.8-13.1) H 11/15/16 22:13 INR 1.3 (0.9-1.2) H 11/15/16 22:13 APTT 66.1 Seconds (25.6-37.1) H 11/17/16 06:00 - Constitutional Appears: No Acute Distress - Head Exam Head Exam: NORMAL INSPECTION - Eye Exam Eye Exam: Normal appearance - ENT Exam ENT Exam: Mucous Membranes Moist - Neck Exam Neck Exam: Normal Inspection - Respiratory Exam Respiratory Exam: Clear to Ausculation Bilateral, NORMAL BREATHING PATTERN - Cardiovascular Exam Cardiovascular Exam: REGULAR RHYTHM, +S1, +S2 - GI/Abdominal Exam GI & Abdominal Exam: Soft - Extremities Exam Additional comments: Dressing dry and intact right residual limb. Knee immobilizer in place. - Back Exam Back Exam: NORMAL INSPECTION - Neurological Exam Neurological Exam: Alert, Awake, CN II-XII Intact, Oriented x3 - Psychiatric Exam Psychiatric exam: Depressed - Skin Skin Exam: Dry, Normal Color, Warm Assessment and Plan (1) Status post below knee amputation of right lower extremity Assessment & Plan: All efforts are being made to save the right Bk amputation - with additional targeted antibiotics, intense anticoagularion, and anticipated surgical debridement in the OR on 11/19/16. SEE SUBJECTIVE FOR DETAILS. Status: Acute (2) ESRD (end stage renal disease) on dialysis Status: Chronic (3) DM type 2 (diabetes mellitus, type 2) Status: Chronic (4) Coagulopathy Assessment & Plan: Argatroban drip is to be continued until 12 hours prior to surgical procedure on 11/19/16. Then, hopefully, as soon as Dr. Murray approves, we will restart the Eliquis and aspirin (both of which are being held at this time). The argatroban drip must not be allowed to "fall off' her orders because the computer automatically drops it. !!! Status: Chronic (5) Peripheral arterial occlusive disease Status: Chronic
--- NOTE | 2016-11-17 11:53 | CP.PCM.PN ---
Subjective - Date & Time of Evaluation Date of Evaluation: 11/17/16 Time of Evaluation: 11:00 - Subjective Subjective: Appears comfortable in bed Feels better Objective - Vital Signs/Intake and Output Vital Signs (last 24 hours): Temp Pulse Resp BP Pulse Ox 98 F 107 H 12 143/28 L 98 11/17/16 08:00 11/17/16 10:00 11/17/16 10:00 11/17/16 08:00 11/16/16 23:35 Intake and Output: 11/17/16 11/17/16 06:59 18:59 Intake Total 460 594 Balance 460 594 - Medications Medications: Current Medications Acetaminophen (Tylenol 325mg Tab) 650 mg PO Q4 PRN PRN Reason: Fever >100.4 F Last Admin: 10/02/16 16:27 Dose: 650 mg Acetaminophen (Tylenol 325mg Tab) 650 mg PO Q4 PRN PRN Reason: Pain, moderate (4-7) Last Admin: 09/16/16 22:34 Dose: 650 mg Albuterol Sulfate (Albuterol 0.083% Inhal Barbie (2.5 Mg/3 Ml) Ud) 2.5 mg INH RQ4 PRN PRN Reason: Shortness of Breath Albuterol/Ipratropium (Duoneb 3 Mg/0.5 Mg (3 Ml) Ud) 3 ml INH RQ4 PRN PRN Reason: Shortness of Breath Last Admin: 11/11/16 07:39 Dose: 3 ml Aspirin (Ecotrin) 81 mg PO DAILY [facility] Last Admin: 11/16/16 08:35 Dose: 81 mg Atorvastatin Calcium (Lipitor) 40 mg PO DAILY [facility] Last Admin: 11/17/16 08:31 Dose: 40 mg Benzonatate (Tessalon Perles) 200 mg PO TID PRN PRN Reason: Cough Last Admin: 11/16/16 12:41 Dose: 200 mg Calcium Carbonate (Oscal) 500 mg PO BIDWM [facility] Last Admin: 11/17/16 08:34 Dose: 500 mg Cinacalcet (Sensipar) 30 mg PO DAILY [facility] Last Admin: 11/17/16 08:36 Dose: 30 mg Collagenase (Santyl) 1 applic TOP DAILY [facility] Last Admin: 11/17/16 08:35 Dose: 1 applic Diphenhydramine HCl (Benadryl) 25 mg PO Q6 PRN PRN Reason: Itching / Pruritus Last Admin: 11/12/16 08:34 Dose: 25 mg Epoetin Tha (Procrit) 20,000 unit IV [facility] [place] Last Admin: 11/15/16 08:38 Dose: 20,000 unit Ergocalciferol (Drisdol 50,000 Intl Units Cap) 1 cap PO WED [facility] Last Admin: 11/13/16 08:42 Dose: 1 cap Fluconazole (Diflucan) 100 mg PO DAILY [facility] Last Admin: 11/17/16 08:30 Dose: 100 mg Gabapentin (Neurontin) 300 mg PO TID [facility] Last Admin: 11/17/16 08:31 Dose: 300 mg Hydrocortisone (Anusol-Hc) 1 applic SD BID PRN PRN Reason: Inflammation Hydromorphone HCl (Dilaudid) 1 mg IVP Q3H PRN PRN Reason: Pain, severe (8-10) Last Admin: 11/17/16 08:48 Dose: 1 mg Meropenem 500 mg/ Sodium (Chloride) 100 mls @ 100 mls/hr IVPB DAILY@0100 [facility] Last Admin: 11/17/16 00:22 Dose: 100 mls/hr Sodium Chloride (Sodium Chloride 0.9%) 1,000 mls @ 10 mls/hr IV .Q24H [facility] Last Admin: 11/14/16 17:40 Dose: Not Given Daptomycin 650 mg/ Sodium (Chloride) 100 mls @ 100 mls/hr IV [facility] Stop: 11/18/16 09:01 Last Admin: 11/15/16 16:59 Dose: 100 mls/hr Gentamicin Sulfate/Sodium Chloride (Gentamicin 100mg/100ml Ns) 100 mg in 100 mls @ 100 mls/hr IVPB [facility] Last Admin: 11/15/16 12:49 Dose: 100 mls/hr Tigecycline 25 mg/ Sodium (Chloride) 100 mls @ 100 mls/hr IVPB Q12 [facility] Last Admin: 11/17/16 08:29 Dose: 100 mls/hr Argatroban 250 mg/ Sodium (Chloride) 252.5 mls @ 3.25 mls/hr IV .Q24H [facility]; 0.5 MCG/KG/MIN PRN Reason: Protocol Insulin Detemir (Levemir) [address] [facility] Last Admin: 11/16/16 22:46 Dose: 26 units Insulin Human Lispro (Humalog) 6 units SC AC [facility] Last Admin: 11/17/16 06:57 Dose: 6 units Lidocaine (Lidoderm) 1 ea TD DAILY [facility] Last Admin: 11/17/16 08:30 Dose: 1 ea Nystatin (Nystop Topical Powder) 1 applic TOP BID [facility] Last Admin: 11/17/16 08:33 Dose: Not Given Ondansetron HCl (Zofran Inj) 4 mg IVP Q6 PRN PRN Reason: Nausea/Vomiting Last Admin: 09/19/16 10:26 Dose: 4 mg Pantoprazole Sodium (Protonix Ec Tab) 40 mg PO DAILY [facility] Last Admin: 11/17/16 08:34 Dose: 40 mg Sevelamer HCl (Renagel) 1,600 mg PO TID [facility] Last Admin: 11/17/16 08:34 Dose: 1,600 mg Topiramate (Topamax) 50 mg PO BID [facility] Last Admin: 11/17/16 08:36 Dose: 50 mg Vitamin B Complex/Vit C/Folic Acid (Nephro-Ajay) 1 tab PO DAILY [facility] Last Admin: 11/17/16 08:39 Dose: 1 tab - Labs Labs: 11/17/16 06:00 11/16/16 05:00 PT 14.2 Seconds (9.8-13.1) H 11/15/16 22:13 INR 1.3 (0.9-1.2) H 11/15/16 22:13 APTT 66.1 Seconds (25.6-37.1) H 11/17/16 06:00 - Respiratory Exam Additional comments: Lungs clear - Cardiovascular Exam Cardiovascular Exam: REGULAR RHYTHM Additional comments: Sinus tac 106/min Assessment and Plan - Assessment and Plan (Free Text) Assessment: ESRD HD MWF Rk stump wound infection Plan: K+ was hig yesterday. Was given Kayexalate. Will repeat K+ level HD tomorrow
--- NOTE | 2016-11-17 13:13 | CP.PCM.PN ---
Subjective - Date & Time of Evaluation Date of Evaluation: 11/16/16 Time of Evaluation: 12:20 - Subjective Subjective: No complaints. Argatroban reordered unclear why anticoagulation keeps falling active med list but per nursing no interruption in argatroban treatment Objective - Vital Signs/Intake and Output Vital Signs (last 24 hours): Temp Pulse Resp BP Pulse Ox 98 F 107 H 12 143/28 L 98 11/17/16 08:00 11/17/16 10:00 11/17/16 10:00 11/17/16 08:00 11/16/16 23:35 Intake and Output: 11/17/16 11/17/16 06:59 18:59 Intake Total 460 594 Balance 460 594 - Medications Medications: Current Medications Acetaminophen (Tylenol 325mg Tab) 650 mg PO Q4 PRN PRN Reason: Fever >100.4 F Last Admin: 10/02/16 16:27 Dose: 650 mg Acetaminophen (Tylenol 325mg Tab) 650 mg PO Q4 PRN PRN Reason: Pain, moderate (4-7) Last Admin: 09/16/16 22:34 Dose: 650 mg Albuterol Sulfate (Albuterol 0.083% Inhal Barbie (2.5 Mg/3 Ml) Ud) 2.5 mg INH RQ4 PRN PRN Reason: Shortness of Breath Albuterol/Ipratropium (Duoneb 3 Mg/0.5 Mg (3 Ml) Ud) 3 ml INH RQ4 PRN PRN Reason: Shortness of Breath Last Admin: 11/11/16 07:39 Dose: 3 ml Aspirin (Ecotrin) 81 mg PO DAILY [facility] Last Admin: 11/16/16 08:35 Dose: 81 mg Atorvastatin Calcium (Lipitor) 40 mg PO DAILY [facility] Last Admin: 11/17/16 08:31 Dose: 40 mg Benzonatate (Tessalon Perles) 200 mg PO TID PRN PRN Reason: Cough Last Admin: 11/16/16 12:41 Dose: 200 mg Calcium Carbonate (Oscal) 500 mg PO BIDWM [facility] Last Admin: 11/17/16 08:34 Dose: 500 mg Cinacalcet (Sensipar) 30 mg PO DAILY [facility] Last Admin: 11/17/16 08:36 Dose: 30 mg Collagenase (Santyl) 1 applic TOP DAILY [facility] Last Admin: 11/17/16 08:35 Dose: 1 applic Diphenhydramine HCl (Benadryl) 25 mg PO Q6 PRN PRN Reason: Itching / Pruritus Last Admin: 11/12/16 08:34 Dose: 25 mg Epoetin Tha (Procrit) 20,000 unit IV [facility] [place] Last Admin: 11/15/16 08:38 Dose: 20,000 unit Ergocalciferol (Drisdol 50,000 Intl Units Cap) 1 cap PO WED [facility] Last Admin: 11/13/16 08:42 Dose: 1 cap Fluconazole (Diflucan) 100 mg PO DAILY [facility] Last Admin: 11/17/16 08:30 Dose: 100 mg Gabapentin (Neurontin) 300 mg PO TID [facility] Last Admin: 11/17/16 08:31 Dose: 300 mg Hydrocortisone (Anusol-Hc) 1 applic PA BID PRN PRN Reason: Inflammation Hydromorphone HCl (Dilaudid) 1 mg IVP Q3H PRN PRN Reason: Pain, severe (8-10) Last Admin: 11/17/16 08:48 Dose: 1 mg Meropenem 500 mg/ Sodium (Chloride) 100 mls @ 100 mls/hr IVPB DAILY@0100 [facility] Last Admin: 11/17/16 00:22 Dose: 100 mls/hr Sodium Chloride (Sodium Chloride 0.9%) 1,000 mls @ 10 mls/hr IV .Q24H [facility] Last Admin: 11/14/16 17:40 Dose: Not Given Daptomycin 650 mg/ Sodium (Chloride) 100 mls @ 100 mls/hr IV [facility] [place] Stop: 11/18/16 09:01 Last Admin: 11/15/16 16:59 Dose: 100 mls/hr Gentamicin Sulfate/Sodium Chloride (Gentamicin 100mg/100ml Ns) 100 mg in 100 mls @ 100 mls/hr IVPB [facility] [place] Last Admin: 11/15/16 12:49 Dose: 100 mls/hr Tigecycline 25 mg/ Sodium (Chloride) 100 mls @ 100 mls/hr IVPB Q12 [facility] Last Admin: 11/17/16 08:29 Dose: 100 mls/hr Argatroban 250 mg/ Sodium (Chloride) 252.5 mls @ 3.25 mls/hr IV .Q24H [facility]; 0.5 MCG/KG/MIN PRN Reason: Protocol Insulin Detemir (Levemir) 26 units SC HS [facility] Last Admin: 11/16/16 22:46 Dose: 26 units Insulin Human Lispro (Humalog) 6 units SC AC [facility] Last Admin: 11/17/16 06:57 Dose: 6 units Lidocaine (Lidoderm) 1 ea TD DAILY [facility] Last Admin: 11/17/16 08:30 Dose: 1 ea Nystatin (Nystop Topical Powder) 1 applic TOP BID [facility] Last Admin: 11/17/16 08:33 Dose: Not Given Ondansetron HCl (Zofran Inj) 4 mg IVP Q6 PRN PRN Reason: Nausea/Vomiting Last Admin: 09/19/16 10:26 Dose: 4 mg Pantoprazole Sodium (Protonix Ec Tab) 40 mg PO DAILY [facility] Last Admin: 11/17/16 08:34 Dose: 40 mg Sevelamer HCl (Renagel) 1,600 mg PO TID [facility] Last Admin: 11/17/16 08:34 Dose: 1,600 mg Topiramate (Topamax) 50 mg PO BID [facility] Last Admin: 11/17/16 08:36 Dose: 50 mg Vitamin B Complex/Vit C/Folic Acid (Nephro-Ajay) 1 tab PO DAILY [facility] Last Admin: 11/17/16 08:39 Dose: 1 tab - Labs Labs: 11/17/16 06:00 11/16/16 05:00 PT 14.2 Seconds (9.8-13.1) H 11/15/16 22:13 INR 1.3 (0.9-1.2) H 11/15/16 22:13 APTT 66.1 Seconds (25.6-37.1) H 11/17/16 06:00 - Head Exam Head Exam: ATRAUMATIC - Eye Exam Eye Exam: Normal appearance - ENT Exam ENT Exam: Mucous Membranes Dry - Respiratory Exam Respiratory Exam: NORMAL BREATHING PATTERN - Cardiovascular Exam Cardiovascular Exam: +S1, +S2 - GI/Abdominal Exam GI & Abdominal Exam: Normal Bowel Sounds - Neurological Exam Neurological Exam: Oriented x3 Assessment and Plan (1) Suspected heparin induced thrombocytopenia in hospitalized patient Assessment & Plan: on argastroban drip anticoagulation to be held 12 hours prior to OR can restart Eliquis post op Status: Acute
--- NOTE | 2016-11-17 14:18 | CP.PCM.PN ---
Subjective - Date & Time of Evaluation Date of Evaluation: 11/17/16 Time of Evaluation: 14:14 - Subjective Subjective: I D NOTE WBC is elevated a bit to 11 is on gentamicin/tygacil/daptomycin meropenem may consider discontinuing meropenem Objective - Vital Signs/Intake and Output Vital Signs (last 24 hours): Temp Pulse Resp BP Pulse Ox 98 F 107 H 12 143/28 L 98 11/17/16 08:00 11/17/16 10:00 11/17/16 10:00 11/17/16 08:00 11/16/16 23:35 Intake and Output: 11/17/16 11/17/16 06:59 18:59 Intake Total 460 594 Balance 460 594 - Medications Medications: Current Medications Acetaminophen (Tylenol 325mg Tab) 650 mg PO Q4 PRN PRN Reason: Fever >100.4 F Last Admin: 10/02/16 16:27 Dose: 650 mg Acetaminophen (Tylenol 325mg Tab) 650 mg PO Q4 PRN PRN Reason: Pain, moderate (4-7) Last Admin: 09/16/16 22:34 Dose: 650 mg Albuterol Sulfate (Albuterol 0.083% Inhal Barbie (2.5 Mg/3 Ml) Ud) 2.5 mg INH RQ4 PRN PRN Reason: Shortness of Breath Albuterol/Ipratropium (Duoneb 3 Mg/0.5 Mg (3 Ml) Ud) 3 ml INH RQ4 PRN PRN Reason: Shortness of Breath Last Admin: 11/11/16 07:39 Dose: 3 ml Aspirin (Ecotrin) 81 mg PO DAILY [facility] [place] [place] Last Admin: 11/16/16 08:35 Dose: 81 mg Atorvastatin Calcium (Lipitor) 40 mg PO DAILY [facility] [place] Last Admin: 11/17/16 08:31 Dose: 40 mg Benzonatate (Tessalon Perles) 200 mg PO TID PRN PRN Reason: Cough Last Admin: 11/16/16 12:41 Dose: 200 mg Calcium Carbonate (Oscal) 500 mg PO BIDWM [facility] [place] Last Admin: 11/17/16 08:34 Dose: 500 mg Cinacalcet (Sensipar) 30 mg PO DAILY [facility] [place] Last Admin: 11/17/16 08:36 Dose: 30 mg Collagenase (Santyl) 1 applic TOP DAILY [facility] [place] Last Admin: 11/17/16 08:35 Dose: 1 applic Diphenhydramine HCl (Benadryl) 25 mg PO Q6 PRN PRN Reason: Itching / Pruritus Last Admin: 11/12/16 08:34 Dose: 25 mg Epoetin Tha (Procrit) 20,000 unit IV [facility] Last Admin: 11/15/16 08:38 Dose: 20,000 unit Ergocalciferol (Drisdol 50,000 Intl Units Cap) 1 cap PO WED [facility] [place] Last Admin: 11/13/16 08:42 Dose: 1 cap Fluconazole (Diflucan) 100 mg PO DAILY [facility] [place] Last Admin: 11/17/16 08:30 Dose: 100 mg Gabapentin (Neurontin) 300 mg PO TID [facility] [place] Last Admin: 11/17/16 13:42 Dose: 300 mg Hydrocortisone (Anusol-Hc) [address] BID PRN PRN Reason: Inflammation Hydromorphone HCl (Dilaudid) 1 mg IVP Q3H PRN PRN Reason: Pain, severe (8-10) Last Admin: 11/17/16 13:42 Dose: 1 mg Meropenem 500 mg/ Sodium (Chloride) 100 mls @ 100 mls/hr IVPB DAILY@0100 [facility] [place] Last Admin: 11/17/16 00:22 Dose: 100 mls/hr Sodium Chloride (Sodium Chloride 0.9%) 1,000 mls @ 10 mls/hr IV .Q24H [facility] [place] Last Admin: 11/14/16 17:40 Dose: Not Given Daptomycin 650 mg/ Sodium (Chloride) 100 mls @ 100 mls/hr [place] [facility] Stop: 11/18/16 09:01 Last Admin: 11/15/16 16:59 Dose: 100 mls/hr Gentamicin Sulfate/Sodium Chloride (Gentamicin 100mg/100ml Ns) 100 mg in 100 mls @ 100 mls/hr IVPB [facility] Last Admin: 11/15/16 12:49 Dose: 100 mls/hr Tigecycline 25 mg/ Sodium (Chloride) 100 mls @ 100 mls/hr IVPB Q12 [facility] [place] Last Admin: 11/17/16 08:29 Dose: 100 mls/hr Argatroban 250 mg/ Sodium (Chloride) 252.5 mls @ 3.25 mls/hr IV .Q24H [facility] [place] [place]; 0.5 MCG/KG/MIN PRN Reason: Protocol Insulin Detemir (Levemir) 26 units SC HS [facility] [place] Last Admin: 11/16/16 22:46 Dose: 26 units Insulin Human Lispro (Humalog) 6 units SC AC [facility] [place] Last Admin: 11/17/16 13:36 Dose: Not Given Lidocaine (Lidoderm) 1 ea TD DAILY [facility] [place] Last Admin: 11/17/16 08:30 Dose: 1 ea Nystatin (Nystop Topical Powder) 1 applic TOP BID [facility] [place] Last Admin: 11/17/16 08:33 Dose: Not Given Ondansetron HCl (Zofran Inj) 4 mg IVP Q6 PRN PRN Reason: Nausea/Vomiting Last Admin: 09/19/16 10:26 Dose: 4 mg Pantoprazole Sodium (Protonix Ec Tab) 40 mg PO DAILY [facility] [place] Last Admin: 11/17/16 08:34 Dose: 40 mg Sevelamer HCl (Renagel) 1,600 mg PO TID [facility] [place] Last Admin: 11/17/16 13:42 Dose: 1,600 mg Topiramate (Topamax) 50 mg PO BID [facility] [place] Last Admin: 11/17/16 08:36 Dose: 50 mg Vitamin B Complex/Vit C/Folic Acid (Nephro-Ajay) 1 tab PO DAILY [facility] [place] Last Admin: 11/17/16 08:39 Dose: 1 tab - Labs Labs: 11/17/16 06:00 11/16/16 05:00 PT 14.2 Seconds (9.8-13.1) H 11/15/16 22:13 INR 1.3 (0.9-1.2) H 11/15/16 22:13 APTT 66.1 Seconds (25.6-37.1) H 11/17/16 06:00
[2016-11-17] MEDS: Insulin Detemir 100 Units/ml Inj SC SCH (22:09)
--- NOTE | 2016-11-17 23:58 | CP.PCM.PN ---
Subjective - Date & Time of Evaluation Date of Evaluation: 11/17/16 Time of Evaluation: 20:35 - Subjective Subjective: Patient was off anticoagulants for few days, this didn't cause any significant harm. Patient will have her surgery for Osteomyelitis debridement of the Right Knee Stump. The new lab work is seen. PTT is 66.1 There is no reported seizures. She is on Topamax 50mg BID. She is receiving hemodialysis as usual on ,W,. She is followed by different services for DM, ESRD, Nephrology, Internal Medicine, Surgery, Neurology, Orthopedics and other services. Objective - Vital Signs/Intake and Output Vital Signs (last 24 hours): Temp Pulse Resp BP Pulse Ox 97.9 F 107 H 10 L 128/72 98 11/17/16 20:00 11/17/16 22:00 11/17/16 22:00 11/17/16 22:00 11/16/16 23:35 Intake and Output: 11/17/16 11/18/16 18:59 06:59 Intake Total 968 284 Balance 968 284 - Medications Medications: Current Medications Acetaminophen (Tylenol 325mg Tab) 650 mg PO Q4 PRN PRN Reason: Fever >100.4 F Last Admin: 10/02/16 16:27 Dose: 650 mg Acetaminophen (Tylenol 325mg Tab) 650 mg PO Q4 PRN PRN Reason: Pain, moderate (4-7) Last Admin: 09/16/16 22:34 Dose: 650 mg Albuterol Sulfate (Albuterol 0.083% Inhal Barbie (2.5 Mg/3 Ml) Ud) 2.5 mg INH RQ4 PRN PRN Reason: Shortness of Breath Albuterol/Ipratropium (Duoneb 3 Mg/0.5 Mg (3 Ml) Ud) 3 ml INH RQ4 PRN PRN Reason: Shortness of Breath Last Admin: 11/11/16 07:39 Dose: 3 ml Aspirin (Ecotrin) 81 mg PO DAILY [facility] Last Admin: 11/16/16 08:35 Dose: 81 mg Atorvastatin Calcium (Lipitor) 40 mg PO DAILY [facility] Last Admin: 11/17/16 08:31 Dose: 40 mg Benzonatate (Tessalon Perles) 200 mg PO TID PRN PRN Reason: Cough Last Admin: 11/16/16 12:41 Dose: 200 mg Calcium Carbonate (Oscal) 500 mg PO BIDWM [facility] Last Admin: 11/17/16 16:32 Dose: 500 mg Cinacalcet (Sensipar) 30 mg PO DAILY [facility] Last Admin: 11/17/16 08:36 Dose: 30 mg Collagenase (Santyl) 1 applic TOP DAILY [facility] Last Admin: 11/17/16 08:35 Dose: 1 applic Diphenhydramine HCl (Benadryl) 25 mg PO Q6 PRN PRN Reason: Itching / Pruritus Last Admin: 11/12/16 08:34 Dose: 25 mg Epoetin Tha (Procrit) 20,000 unit IV [facility] [place] Last Admin: 11/15/16 08:38 Dose: 20,000 unit Ergocalciferol (Drisdol 50,000 Intl Units Cap) 1 cap PO WED [facility] Last Admin: 11/13/16 08:42 Dose: 1 cap Fluconazole (Diflucan) 100 mg PO DAILY [facility] Last Admin: 11/17/16 08:30 Dose: 100 mg Gabapentin (Neurontin) 300 mg PO TID [facility] Last Admin: 11/17/16 16:31 Dose: 300 mg Hydrocortisone (Anusol-Hc) 1 applic [place] BID PRN PRN Reason: Inflammation Hydromorphone HCl (Dilaudid) 1 mg IVP Q3H PRN PRN Reason: Pain, severe (8-10) Last Admin: 11/17/16 21:59 Dose: 1 mg Meropenem 500 mg/ Sodium (Chloride) 100 mls @ 100 mls/hr IVPB DAILY@0100 [facility] Last Admin: 11/17/16 00:22 Dose: 100 mls/hr Sodium Chloride (Sodium Chloride 0.9%) 1,000 mls @ 10 mls/hr IV .Q24H [facility] Last Admin: 11/14/16 17:40 Dose: Not Given Daptomycin 650 mg/ Sodium (Chloride) 100 mls @ 100 mls/hr IV [facility] [place] Stop: 11/18/16 09:01 Last Admin: 11/15/16 16:59 Dose: 100 mls/hr Gentamicin Sulfate/Sodium Chloride (Gentamicin 100mg/100ml Ns) 100 mg in 100 mls @ 100 mls/hr IVPB [facility] [place] Last Admin: 11/15/16 12:49 Dose: 100 mls/hr Tigecycline 25 mg/ Sodium (Chloride) 100 mls @ 100 mls/hr IVPB Q12 [facility] Last Admin: 11/17/16 20:38 Dose: 100 mls/hr Argatroban 250 mg/ Sodium (Chloride) 252.5 mls @ 3.25 mls/hr IV .Q24H [facility]; 0.5 MCG/KG/MIN PRN Reason: Protocol Insulin Detemir (Levemir) 26 units SC HS [facility] Last Admin: 11/17/16 22:09 Dose: 26 units Insulin Human Lispro (Humalog) 6 units SC AC [facility] Last Admin: 11/17/16 16:30 Dose: 6 units Lidocaine (Lidoderm) 1 ea TD DAILY [facility] Last Admin: 11/17/16 08:30 Dose: 1 ea Nystatin (Nystop Topical Powder) 1 applic TOP BID [facility] Last Admin: 11/17/16 16:32 Dose: Not Given Ondansetron HCl (Zofran Inj) 4 mg IVP Q6 PRN PRN Reason: Nausea/Vomiting Last Admin: 09/19/16 10:26 Dose: 4 mg Pantoprazole Sodium (Protonix Ec Tab) 40 mg PO DAILY [facility] Last Admin: 11/17/16 08:34 Dose: 40 mg Sevelamer HCl (Renagel) 1,600 mg PO TID [facility] Last Admin: 11/17/16 16:32 Dose: 1,600 mg Topiramate (Topamax) 50 mg PO BID [facility] Last Admin: 11/17/16 16:33 Dose: 50 mg Vitamin B Complex/Vit C/Folic Acid (Nephro-Ajay) 1 tab PO DAILY [facility] Last Admin: 11/17/16 08:39 Dose: 1 tab - Labs Labs: 11/17/16 06:00 11/16/16 05:00 PT 14.2 Seconds (9.8-13.1) H 11/15/16 22:13 INR 1.3 (0.9-1.2) H 11/15/16 22:13 APTT 66.1 Seconds (25.6-37.1) H 11/17/16 06:00 Assessment and Plan (1) Diabetes Status: Chronic (2) ESRD (end stage renal disease) Status: Chronic (3) Cellulitis of leg Status: Chronic (4) Hyperlipidemia Status: Chronic (5) Back pain Status: Acute (6) Bacteremia due to Gram-negative bacteria Status: Acute (7) Diabetes mellitus type 2 with peripheral artery disease Status: Acute (8) PVD (peripheral vascular disease) Status: Acute (9) Osteomyelitis of right leg Status: Acute
[2016-11-18] MEDS: Meropenem 500 MG in Sodium Chloride 0.9% 100 ML IVPB SCH (00:29)
--- NOTE | 2016-11-18 08:07 | CP.PCM.PN ---
<[place] - Last Filed: 11/18/16 08:04> Subjective - Date & Time of Evaluation Date of Evaluation: 11/18/16 Time of Evaluation: 08:04 - Subjective Subjective: Surgery for Dr. Mccormack Pt s&e. Pt in ICU for Verena NOLAN. Denies F/C/N/V/D/CP/SOB. Working with PT. Tolerating diet. Objective - Vital Signs/Intake and Output Vital Signs (last 24 hours): Temp Pulse Resp BP Pulse Ox 98.2 F 97 H 10 L 137/76 98 11/18/16 04:00 11/18/16 06:00 11/18/16 06:00 11/18/16 06:00 11/16/16 23:35 Intake and Output: 11/18/16 11/18/16 06:59 18:59 Intake Total 802 Balance 802 - Medications Medications: Current Medications Acetaminophen (Tylenol 325mg Tab) 650 mg PO Q4 PRN PRN Reason: Fever >100.4 F Last Admin: 10/02/16 16:27 Dose: 650 mg Acetaminophen (Tylenol 325mg Tab) 650 mg PO Q4 PRN PRN Reason: Pain, moderate (4-7) Last Admin: 09/16/16 22:34 Dose: 650 mg Albuterol Sulfate (Albuterol 0.083% Inhal Barbie (2.5 Mg/3 Ml) Ud) 2.5 mg INH RQ4 PRN PRN Reason: Shortness of Breath Albuterol/Ipratropium (Duoneb 3 Mg/0.5 Mg (3 Ml) Ud) 3 ml INH RQ4 PRN PRN Reason: Shortness of Breath Last Admin: 11/11/16 07:39 Dose: 3 ml Aspirin (Ecotrin) 81 mg PO DAILY [facility] Last Admin: 11/16/16 08:35 Dose: 81 mg Atorvastatin Calcium (Lipitor) 40 mg PO DAILY [facility] Last Admin: 11/17/16 08:31 Dose: 40 mg Benzonatate (Tessalon Perles) 200 mg PO TID PRN PRN Reason: Cough Last Admin: 11/16/16 12:41 Dose: 200 mg Calcium Carbonate (Oscal) 500 mg PO BIDWM [facility] Last Admin: 11/17/16 16:32 Dose: 500 mg Cinacalcet (Sensipar) 30 mg PO DAILY [facility] Last Admin: 11/17/16 08:36 Dose: 30 mg Collagenase (Santyl) 1 applic TOP DAILY [facility] Last Admin: 11/17/16 08:35 Dose: 1 applic Diphenhydramine HCl (Benadryl) 25 mg PO Q6 PRN PRN Reason: Itching / Pruritus Last Admin: 11/12/16 08:34 Dose: 25 mg Epoetin Tha (Procrit) 20,000 unit IV [facility] Last Admin: 11/15/16 08:38 Dose: 20,000 unit Ergocalciferol (Drisdol 50,000 Intl Units Cap) 1 cap PO WED [facility] Last Admin: 11/13/16 08:42 Dose: 1 cap Fluconazole (Diflucan) 100 mg PO DAILY [facility] Last Admin: 11/17/16 08:30 Dose: 100 mg Gabapentin (Neurontin) 300 mg PO TID [facility] Last Admin: 11/17/16 16:31 Dose: 300 mg Hydrocortisone (Anusol-Hc) 1 applic [place] BID PRN PRN Reason: Inflammation Hydromorphone HCl (Dilaudid) 1 mg IVP Q3H PRN PRN Reason: Pain, severe (8-10) Last Admin: 11/18/16 07:32 Dose: 1 mg Meropenem 500 mg/ Sodium (Chloride) 100 mls @ 100 mls/hr IVPB DAILY@0100 [facility] Last Admin: 11/18/16 00:29 Dose: 100 mls/hr Sodium Chloride (Sodium Chloride 0.9%) 1,000 mls @ 10 mls/hr IV .Q24H [facility] Last Admin: 11/14/16 17:40 Dose: Not Given Daptomycin 650 mg/ Sodium (Chloride) 100 mls @ 100 mls/hr IV [facility] Stop: 11/18/16 09:01 Last Admin: 11/15/16 16:59 Dose: 100 mls/hr Gentamicin Sulfate/Sodium Chloride (Gentamicin 100mg/100ml Ns) 100 mg in 100 mls @ 100 mls/hr IVPB [facility] Last Admin: 11/15/16 12:49 Dose: 100 mls/hr Tigecycline 25 mg/ Sodium (Chloride) 100 mls @ 100 mls/hr IVPB Q12 [facility] Last Admin: 11/17/16 20:38 Dose: 100 mls/hr Argatroban 250 mg/ Sodium (Chloride) 252.5 mls @ 3.25 mls/hr IV .Q24H [facility]; 0.5 MCG/KG/MIN PRN Reason: Protocol Insulin Detemir (Levemir) 26 units SC HS [facility] Last Admin: 11/17/16 22:09 Dose: 26 units Insulin Human Lispro (Humalog) 6 units SC AC [facility] Last Admin: 11/17/16 16:30 Dose: 6 units Lidocaine (Lidoderm) 1 ea TD DAILY [facility] Last Admin: 11/17/16 08:30 Dose: 1 ea Nystatin (Nystop Topical Powder) 1 applic TOP BID [facility] Last Admin: 11/17/16 16:32 Dose: Not Given Ondansetron HCl (Zofran Inj) 4 mg IVP Q6 PRN PRN Reason: Nausea/Vomiting Last Admin: 09/19/16 10:26 Dose: 4 mg Pantoprazole Sodium (Protonix Ec Tab) 40 mg PO DAILY [facility] Last Admin: 11/17/16 08:34 Dose: 40 mg Sevelamer HCl (Renagel) 1,600 mg PO TID [facility] Last Admin: 11/17/16 16:32 Dose: 1,600 mg Topiramate (Topamax) 50 mg PO BID [facility] Last Admin: 11/17/16 16:33 Dose: 50 mg Vitamin B Complex/Vit C/Folic Acid (Nephro-Ajay) 1 tab PO DAILY [facility] Last Admin: 11/17/16 08:39 Dose: 1 tab - Labs Labs: 11/17/16 06:00 11/16/16 05:00 PT 14.2 Seconds (9.8-13.1) H 11/15/16 22:13 INR 1.3 (0.9-1.2) H 11/15/16 22:13 APTT 53.4 Seconds (25.6-37.1) H D 11/18/16 04:35 - Constitutional Appears: No Acute Distress - Head Exam Head Exam: ATRAUMATIC, NORMAL INSPECTION, NORMOCEPHALIC - Eye Exam Eye Exam: EOMI, Normal appearance, PERRL Pupil Exam: NORMAL ACCOMODATION, PERRL - ENT Exam ENT Exam: Mucous Membranes Moist, Normal Exam - Neck Exam Neck Exam: Full ROM, Normal Inspection. absent: Lymphadenopathy - Cardiovascular Exam Cardiovascular Exam: REGULAR RHYTHM, +S1, +S2. absent: Murmur - GI/Abdominal Exam GI & Abdominal Exam: Soft, Normal Bowel Sounds. absent: Tenderness - Exam Exam: NORMAL INSPECTION - Extremities Exam Extremities Exam: Tenderness. absent: Full ROM, Normal Capillary Refill, Normal Inspection Additional comments: b/l BKA. Dressing C/D/I. - Back Exam Back Exam: NORMAL INSPECTION - Neurological Exam Neurological Exam: Alert, Awake, CN II-XII Intact, Oriented x3 - Psychiatric Exam Psychiatric exam: Normal Affect, Normal Mood - Skin Skin Exam: Dry, Erythema, Intact, Warm Assessment and Plan - Assessment and Plan (Free Text) Assessment: 46yo F with PMHx of HTN, ESRD, PVD. General Surgery following s/p Right BKA on . POD 48. - 11/02: Wound Cx Right Stump - Multi drug resistant Klebsiella - 11/11: Wound Cx Right Stump - Multi drug resistant Klebsiella - CT: possible osteo - mild leukocytosis 11k today - f/u 3-phase Bone scan - OR Sunday 11/19 for Washout, debridement and possible BKA revision pending results of bone scan. - Continue dressing changes as needed. Continue chemical debridement - Continue Medical management : Hold Agatroban at least 12 hrs prior to surgery. - Pain management - IV Abx as per ID Further recs as per Dr. Mccormack <Raffy Mccormack - Last Filed: 11/18/16 15:18> Objective - Vital Signs/Intake and Output Vital Signs (last 24 hours): Temp Pulse Resp BP Pulse Ox 97.8 F 101 H 16 146/82 98 11/18/16 08:00 11/18/16 08:00 11/18/16 08:00 11/18/16 08:00 11/18/16 08:00 Intake and Output: 11/18/16 11/18/16 06:59 18:59 Intake Total 802 560 Balance 802 560 - Medications Medications: Current Medications Acetaminophen (Tylenol 325mg Tab) 650 mg PO Q4 PRN PRN Reason: Fever >100.4 F Last Admin: 10/02/16 16:27 Dose: 650 mg Acetaminophen (Tylenol 325mg Tab) 650 mg PO Q4 PRN PRN Reason: Pain, moderate (4-7) Last Admin: 09/16/16 22:34 Dose: 650 mg Albuterol Sulfate (Albuterol 0.083% Inhal Barbie (2.5 Mg/3 Ml) Ud) 2.5 mg INH RQ4 PRN PRN Reason: Shortness of Breath Albuterol/Ipratropium (Duoneb 3 Mg/0.5 Mg (3 Ml) Ud) 3 ml INH RQ4 PRN PRN Reason: Shortness of Breath Last Admin: 11/11/16 07:39 Dose: 3 ml Aspirin (Ecotrin) 81 mg PO DAILY [facility] Last Admin: 11/16/16 08:35 Dose: 81 mg Atorvastatin Calcium (Lipitor) 40 mg PO DAILY [facility] Last Admin: 11/18/16 08:38 Dose: 40 mg Benzonatate (Tessalon Perles) 200 mg PO TID PRN PRN Reason: Cough Last Admin: 11/16/16 12:41 Dose: 200 mg Calcium Carbonate (Oscal) 500 mg PO BIDWM [facility] Last Admin: 11/18/16 08:38 Dose: 500 mg Cinacalcet (Sensipar) 30 mg PO DAILY [facility] Last Admin: 11/18/16 08:39 Dose: 30 mg Collagenase (Santyl) 1 applic TOP DAILY [facility] Last Admin: 11/17/16 08:35 Dose: 1 applic Diphenhydramine HCl (Benadryl) 25 mg PO Q6 PRN PRN Reason: Itching / Pruritus Last Admin: 11/12/16 08:34 Dose: 25 mg Epoetin Tha (Procrit) 20,000 unit IV MWF [facility] Last Admin: 11/15/16 08:38 Dose: 20,000 unit Ergocalciferol (Drisdol 50,000 Intl Units Cap) 1 cap PO WED [facility] Last Admin: 11/13/16 08:42 Dose: 1 cap Fluconazole (Diflucan) 100 mg PO DAILY [facility] Last Admin: 11/18/16 08:36 Dose: 100 mg Gabapentin (Neurontin) 300 mg PO TID [facility] Last Admin: 11/18/16 13:25 Dose: 300 mg Hydrocortisone (Anusol-Hc) 1 applic [place] BID PRN PRN Reason: Inflammation Hydromorphone HCl (Dilaudid) 1 mg IVP Q3H PRN PRN Reason: Pain, severe (8-10) Last Admin: 11/18/16 12:29 Dose: 1 mg Meropenem 500 mg/ Sodium (Chloride) 100 mls @ 100 mls/hr IVPB DAILY@0100 [facility] Last Admin: 11/18/16 00:29 Dose: 100 mls/hr Sodium Chloride (Sodium Chloride 0.9%) 1,000 mls @ 10 mls/hr IV .Q24H [facility] Last Admin: 11/14/16 17:40 Dose: Not Given Gentamicin Sulfate/Sodium Chloride (Gentamicin 100mg/100ml Ns) 100 mg in 100 mls @ 100 mls/hr IVPB MWF [facility] Last Admin: 11/15/16 12:49 Dose: 100 mls/hr Tigecycline 25 mg/ Sodium (Chloride) 100 mls @ 100 mls/hr IVPB Q12 [facility] Last Admin: 11/18/16 08:47 Dose: 100 mls/hr Argatroban 250 mg/ Sodium (Chloride) 252.5 mls @ 3.25 mls/hr IV .Q24H [facility]; 0.5 MCG/KG/MIN PRN Reason: Protocol Stop: 11/18/16 23:55 Dextrose/Sodium Chloride (Dextrose 5%/0.45% Ns 1000 Ml) 1,000 mls @ 50 mls/hr IV .Q20H [facility] Sodium Chloride (Sodium Chloride 0.9%) 1,000 mls @ 15 mls/hr IV .Q24H [facility] Stop: 11/19/16 15:07 Insulin Detemir (Levemir) 18 units SC HS [facility] Insulin Human Lispro (Humalog) 4 units SC AC [facility] Lidocaine (Lidoderm) 1 ea TD DAILY [facility] Last Admin: 11/18/16 08:37 Dose: 1 ea Nystatin (Nystop Topical Powder) 1 applic TOP BID [facility] Last Admin: 11/18/16 08:38 Dose: 1 applic Ondansetron HCl (Zofran Inj) 4 mg IVP Q6 PRN PRN Reason: Nausea/Vomiting Last Admin: 09/19/16 10:26 Dose: 4 mg Pantoprazole Sodium (Protonix Ec Tab) 40 mg PO DAILY [facility] Last Admin: 11/18/16 08:38 Dose: 40 mg Sevelamer HCl (Renagel) 1,600 mg PO TID [facility] Last Admin: 11/18/16 13:25 Dose: 1,600 mg Topiramate (Topamax) 50 mg PO BID [facility] Last Admin: 11/18/16 08:39 Dose: 50 mg Vitamin B Complex/Vit C/Folic Acid (Nephro-Ajay) 1 tab PO DAILY [facility] Last Admin: 11/18/16 08:38 Dose: 1 tab - Labs Labs: 11/17/16 06:00 11/18/16 10:30 PT 14.2 Seconds (9.8-13.1) H 11/15/16 22:13 INR 1.3 (0.9-1.2) H 11/15/16 22:13 APTT 53.4 Seconds (25.6-37.1) H D 11/18/16 04:35 Assessment and Plan - Assessment and Plan (Free Text) Plan: No acute issues last night. Patient remained clinically stable with no immediate signs of systemic infection. Patient has been tolerating argatroban without bleeding. Together with Dr. Thomas I discussed the finding of bone scan with the patient. 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 We decided to proceed with right BKA revision and washout tomorrow in the OR.
[2016-11-18] MEDS: Lidocaine 5% Patch TD SCH (08:37)
[2016-11-18] MEDS: Insulin Lispro (humaLOG) 100 Units/ml Inj SC SCH ×2 (08:37→16:44)
[2016-11-18] MEDS: Pantoprazole 40 mg EC Tab PO SCH (08:38)
[2016-11-18] MEDS: Multivitamin Vitamin B Complex (Nephro-Vite) Tab PO SCH (08:38)
[2016-11-18] MEDS: TIGECYCLINE IVPB SCH ×2 (08:47→21:35)
[2016-11-18] MEDS: SODIUM CHLORIDE 0.9% IVPB SCH ×2 (08:47→21:35)
--- NOTE | 2016-11-18 09:16 | CP.PCM.PN ---
Subjective - Date & Time of Evaluation Date of Evaluation: 11/18/16 Time of Evaluation: 09:05 - Subjective Subjective: Pt in ICU for argatroban infusion in anticipation fot planned debridement of non healing wound following BK amputation > 1 month back. Has been tolerating HD without the hypotensive episodes (due to LV diastolic incompetence) febrile Sinus rhythm at 100 BPM BP 120/70 mm Hg No signs of CHF Today's EKG reviewed Sinus rhythm with poor progression of R waves V2-V3-V4 (Old finding) No Q waves Last set of electrolytes were available for 8th (have requested them) Appears stable for planned Sx Objective - Vital Signs/Intake and Output Vital Signs (last 24 hours): Temp Pulse Resp BP Pulse Ox 98.2 F 97 H 10 L 137/76 98 11/18/16 04:00 11/18/16 06:00 11/18/16 06:00 11/18/16 06:00 11/16/16 23:35 Intake and Output: 11/18/16 11/18/16 06:59 18:59 Intake Total 802 7 Balance 802 7 - Medications Medications: Current Medications Acetaminophen (Tylenol 325mg Tab) 650 mg PO Q4 PRN PRN Reason: Fever >100.4 F Last Admin: 10/02/16 16:27 Dose: 650 mg Acetaminophen (Tylenol 325mg Tab) 650 mg PO Q4 PRN PRN Reason: Pain, moderate (4-7) Last Admin: 09/16/16 22:34 Dose: 650 mg Albuterol Sulfate (Albuterol 0.083% Inhal Barbie (2.5 Mg/3 Ml) Ud) 2.5 mg INH RQ4 PRN PRN Reason: Shortness of Breath Albuterol/Ipratropium (Duoneb 3 Mg/0.5 Mg (3 Ml) Ud) 3 ml INH RQ4 PRN PRN Reason: Shortness of Breath Last Admin: 11/11/16 07:39 Dose: 3 ml Aspirin (Ecotrin) 81 mg PO DAILY [facility] Last Admin: 11/16/16 08:35 Dose: 81 mg Atorvastatin Calcium (Lipitor) 40 mg PO DAILY [facility] Last Admin: 11/18/16 08:38 Dose: 40 mg Benzonatate (Tessalon Perles) 200 mg PO TID PRN PRN Reason: Cough Last Admin: 11/16/16 12:41 Dose: 200 mg Calcium Carbonate (Oscal) 500 mg PO BIDWM [facility] Last Admin: 11/18/16 08:38 Dose: 500 mg Cinacalcet (Sensipar) 30 mg PO DAILY [facility] Last Admin: 11/18/16 08:39 Dose: 30 mg Collagenase (Santyl) 1 applic TOP DAILY [facility] Last Admin: 11/17/16 08:35 Dose: 1 applic Diphenhydramine HCl (Benadryl) 25 mg PO Q6 PRN PRN Reason: Itching / Pruritus Last Admin: 11/12/16 08:34 Dose: 25 mg Epoetin Tha (Procrit) [facility] Last Admin: 11/15/16 08:38 Dose: 20,000 unit Ergocalciferol (Drisdol 50,000 Intl Units Cap) 1 cap PO WED [facility] Last Admin: 11/13/16 08:42 Dose: 1 cap Fluconazole (Diflucan) 100 mg PO DAILY [facility] Last Admin: 11/18/16 08:36 Dose: 100 mg Gabapentin (Neurontin) 300 mg PO TID [facility] Last Admin: 11/18/16 08:38 Dose: 300 mg Hydrocortisone (Anusol-Hc) 1 applic [place] BID PRN PRN Reason: Inflammation Hydromorphone HCl (Dilaudid) 1 mg IVP Q3H PRN PRN Reason: Pain, severe (8-10) Last Admin: 11/18/16 07:32 Dose: 1 mg Meropenem 500 mg/ Sodium (Chloride) 100 mls @ 100 mls/hr IVPB DAILY@0100 [facility] Last Admin: 11/18/16 00:29 Dose: 100 mls/hr Sodium Chloride (Sodium Chloride 0.9%) 1,000 mls @ 10 mls/hr IV .Q24H [facility] Last Admin: 11/14/16 17:40 Dose: Not Given Gentamicin Sulfate/Sodium Chloride (Gentamicin 100mg/100ml Ns) 100 mg in 100 mls @ 100 mls/hr IVPB MWF [facility] Last Admin: 11/15/16 12:49 Dose: 100 mls/hr Tigecycline 25 mg/ Sodium (Chloride) 100 mls @ 100 mls/hr IVPB Q12 [facility] Last Admin: 11/18/16 08:47 Dose: 100 mls/hr Argatroban 250 mg/ Sodium (Chloride) 252.5 mls @ 3.25 mls/hr IV .Q24H [facility]; 0.5 MCG/KG/MIN PRN Reason: Protocol Insulin Detemir (Levemir) 26 units SC HS [facility] Last Admin: 11/17/16 22:09 Dose: 26 units Insulin Human Lispro (Humalog) 6 units SC AC [facility] Last Admin: 11/18/16 08:37 Dose: 6 units Lidocaine (Lidoderm) 1 ea TD DAILY [facility] Last Admin: 11/18/16 08:37 Dose: 1 ea Nystatin (Nystop Topical Powder) 1 applic TOP BID [facility] Last Admin: 11/18/16 08:38 Dose: 1 applic Ondansetron HCl (Zofran Inj) 4 mg IVP Q6 PRN PRN Reason: Nausea/Vomiting Last Admin: 09/19/16 10:26 Dose: 4 mg Pantoprazole Sodium (Protonix Ec Tab) 40 mg PO DAILY [facility] Last Admin: 11/18/16 08:38 Dose: 40 mg Sevelamer HCl (Renagel) 1,600 mg PO TID [facility] Last Admin: 11/18/16 08:39 Dose: 1,600 mg Topiramate (Topamax) 50 mg PO BID [facility] Last Admin: 11/18/16 08:39 Dose: 50 mg Vitamin B Complex/Vit C/Folic Acid (Nephro-Ajay) 1 tab PO DAILY [facility] Last Admin: 11/18/16 08:38 Dose: 1 tab - Labs Labs: 11/17/16 06:00 11/16/16 05:00 PT 14.2 Seconds (9.8-13.1) H 11/15/16 22:13 INR 1.3 (0.9-1.2) H 11/15/16 22:13 APTT 53.4 Seconds (25.6-37.1) H D 11/18/16 04:35
--- NOTE | 2016-11-18 10:31 | CP.PCM.PN ---
Subjective - Date & Time of Evaluation Date of Evaluation: 11/18/16 Time of Evaluation: 10:29 - Subjective Subjective: Patient is awake in bed No acute distress appeared to be comfortable Patient receiving multiple antibiotics including intravenous Argatroban. In anticipation of the right below knee debridement surgery at the site of the amputation Objective - Vital Signs/Intake and Output Vital Signs (last 24 hours): Temp Pulse Resp BP Pulse Ox 97.8 F 101 H 16 146/82 98 11/18/16 08:00 11/18/16 08:00 11/18/16 08:00 11/18/16 08:00 11/18/16 08:00 Intake and Output: 11/18/16 11/18/16 06:59 18:59 Intake Total 802 7 Balance 802 7 - Medications Medications: Current Medications Acetaminophen (Tylenol 325mg Tab) 650 mg PO Q4 PRN PRN Reason: Fever >100.4 F Last Admin: 10/02/16 16:27 Dose: 650 mg Acetaminophen (Tylenol 325mg Tab) 650 mg PO Q4 PRN PRN Reason: Pain, moderate (4-7) Last Admin: 09/16/16 22:34 Dose: 650 mg Albuterol Sulfate (Albuterol 0.083% Inhal Barbie (2.5 Mg/3 Ml) Ud) 2.5 mg INH RQ4 PRN PRN Reason: Shortness of Breath Albuterol/Ipratropium (Duoneb 3 Mg/0.5 Mg (3 Ml) Ud) 3 ml INH RQ4 PRN PRN Reason: Shortness of Breath Last Admin: 11/11/16 07:39 Dose: 3 ml Aspirin (Ecotrin) 81 mg PO DAILY [facility] Last Admin: 11/16/16 08:35 Dose: 81 mg Atorvastatin Calcium (Lipitor) 40 mg PO DAILY [facility] Last Admin: 11/18/16 08:38 Dose: 40 mg Benzonatate (Tessalon Perles) 200 mg PO TID PRN PRN Reason: Cough Last Admin: 11/16/16 12:41 Dose: 200 mg Calcium Carbonate (Oscal) 500 mg PO BIDWM [facility] Last Admin: 11/18/16 08:38 Dose: 500 mg Cinacalcet (Sensipar) 30 mg PO DAILY [facility] Last Admin: 11/18/16 08:39 Dose: 30 mg Collagenase (Santyl) 1 applic TOP DAILY [facility] Last Admin: 11/17/16 08:35 Dose: 1 applic Diphenhydramine HCl (Benadryl) 25 mg PO Q6 PRN PRN Reason: Itching / Pruritus Last Admin: 11/12/16 08:34 Dose: 25 mg Epoetin Tha (Procrit) 20,000 unit IV [facility] Last Admin: 11/15/16 08:38 Dose: 20,000 unit Ergocalciferol (Drisdol 50,000 Intl Units Cap) 1 cap PO WED [facility] Last Admin: 11/13/16 08:42 Dose: 1 cap Fluconazole (Diflucan) 100 mg PO DAILY [facility] Last Admin: 11/18/16 08:36 Dose: 100 mg Gabapentin (Neurontin) 300 mg PO TID [facility] Last Admin: 11/18/16 08:38 Dose: 300 mg Hydrocortisone (Anusol-Hc) 1 applic [place] BID PRN PRN Reason: Inflammation Hydromorphone HCl (Dilaudid) 1 mg IVP Q3H PRN PRN Reason: Pain, severe (8-10) Last Admin: 11/18/16 07:32 Dose: 1 mg Meropenem 500 mg/ Sodium (Chloride) 100 mls @ 100 mls/hr IVPB DAILY@0100 [facility] Last Admin: 11/18/16 00:29 Dose: 100 mls/hr Sodium Chloride (Sodium Chloride 0.9%) 1,000 mls @ 10 mls/hr IV .Q24H [facility] Last Admin: 11/14/16 17:40 Dose: Not Given Gentamicin Sulfate/Sodium Chloride (Gentamicin 100mg/100ml Ns) 100 mg in 100 mls @ 100 mls[facility] Last Admin: 11/15/16 12:49 Dose: 100 mls/hr Tigecycline 25 mg/ Sodium (Chloride) 100 mls @ 100 mls/hr IVPB Q12 [facility] Last Admin: 11/18/16 08:47 Dose: 100 mls/hr Argatroban 250 mg/ Sodium (Chloride) 252.5 mls @ 3.25 mls/hr IV .Q24H [facility]; 0.5 MCG/KG/MIN PRN Reason: Protocol Insulin Detemir (Levemir) 26 units SC [facility] Last Admin: 11/17/16 22:09 Dose: 26 units Insulin Human Lispro (Humalog) 6 units SC AC [facility] Last Admin: 11/18/16 08:37 Dose: 6 units Lidocaine (Lidoderm) 1 ea TD DAILY [facility] Last Admin: 11/18/16 08:37 Dose: 1 ea Nystatin (Nystop Topical Powder) 1 applic TOP BID [facility] Last Admin: 11/18/16 08:38 Dose: 1 applic Ondansetron HCl (Zofran Inj) 4 mg IVP Q6 PRN PRN Reason: Nausea/Vomiting Last Admin: 09/19/16 10:26 Dose: 4 mg Pantoprazole Sodium (Protonix Ec Tab) 40 mg PO DAILY [facility] Last Admin: 11/18/16 08:38 Dose: 40 mg Sevelamer HCl (Renagel) 1,600 mg PO TID [facility] Last Admin: 11/18/16 08:39 Dose: 1,600 mg Topiramate (Topamax) 50 mg PO BID [facility] Last Admin: 11/18/16 08:39 Dose: 50 mg Vitamin B Complex/Vit C/Folic Acid (Nephro-Ajay) 1 tab PO DAILY [facility] Last Admin: 11/18/16 08:38 Dose: 1 tab - Labs Labs: 11/17/16 06:00 11/16/16 05:00 PT 14.2 Seconds (9.8-13.1) H 11/15/16 22:13 INR 1.3 (0.9-1.2) H 11/15/16 22:13 APTT 53.4 Seconds (25.6-37.1) H D 11/18/16 04:35 - Constitutional Appears: No Acute Distress - ENT Exam ENT Exam: Mucous Membranes Moist - Respiratory Exam Respiratory Exam: absent: Chest Wall Tenderness - Cardiovascular Exam Cardiovascular Exam: REGULAR RHYTHM. absent: JVD, Rubs - GI/Abdominal Exam GI & Abdominal Exam: Normal Bowel Sounds - Extremities Exam Extremities Exam: absent: Calf Tenderness - Back Exam Back Exam: absent: CVA tenderness (L), CVA tenderness (R) - Neurological Exam Neurological Exam: Alert Assessment and Plan (1) ESRD (end stage renal disease) Assessment & Plan: End stage renal disease Patient going for debridement of the right stump at the site of the amputation about a month ago or so. Hemodialysis about to start now Patient has been receiving ultrafiltration 4000 mL every time and she has been tolerating that well however I as the patient not to go for more than [id number] at the most As recommended the fluid removal be certain amount of cc per hour per KG. Bad because the patient receiving so much intravenous antibiotics she is gaining probably too much fluid and she feel it herself therefore she feels much better every time to remove this amount of fluid The sodium and potassium bath has not been changed bicarbonate bath remained the same Follow-up phosphorus and PTH Status: Chronic (2) Cellulitis of leg Status: Chronic
[2016-11-18 11:36] LABS: ALB/GLOB RATIO 0.8 (1.0-2.1); BILIRUBIN,TOTAL 0.5 mg/dl (0.2-1.3); CALCIUM 9.8 mg/dL (8.4-10.2); TOTAL PROTEIN 8.6 G/DL (6.3-8.2)
--- NOTE | 2016-11-18 13:48 | NM ---
PROCEDURE: Three-phase bone scan HISTORY: r/o Osteo in RLE. COMPARISON: 09/04/2016. Three-phase bone scan. 11/01/2016 MRI right knee 11/13/2016 CT right lower extremity TECHNIQUE: Following administration of miCu of Tc MDP multiplanar whole body images were obtained. FINDINGS: Flow component: Increased flow to the right knee Blood pool component: Accumulation of radionuclide at the surgical site, right tibia Delayed images at 3:00: Retention of radionuclide at surgical site, stump- proximal right tibia Increased uptake noted right patella on the flow and delayed images of uncertain etiology or significance. Degenerative changes noted, postoperative changes identified left stump. IMPRESSION: Right lower extremity: Positive three-phase bone scan at the stump. This is noted to be most prominent distal aspect of the remaining right tibia
[2016-11-18] MEDS: Santyl Collagenase OINTMENT TOP SCH (15:29)
--- NOTE | 2016-11-18 15:36 | CP.PCM.PN ---
Subjective - Date & Time of Evaluation Date of Evaluation: 11/18/16 Time of Evaluation: 15:20 - Subjective Subjective: S/P Right BK amputation on 10/01/16 for osteomyelitis and abscess right foot/ ankle. Subsequently the wound has failed to heal despite aggressive antibiotic therapy and meticulous wound care. There is now evidence of MDR Klebsiella infection at the surgical site (multiple positive cultures). There is evidence on nuclear bone scan of osteomyelitis a the distal tibial, but it seems limited to equal or less than 1cm distant from distal edge of bone of residual limb. Surgery is planned for tomorrow around 2:30pm to remove the infected bone and cleanse the area - with the hope of preserving the BK status of amputation. In preparation, patient will continue on argatroban IV drip until midnight tonight. Following surgery she can be restarte on Eliquis as soon as Dr. Mccormack advises that hemostasis has been assured. She has been off aspirin for a number of days. This too can be resumed at appropriate time following surgery. Patient will be NPO after midnight tonight. I have ordered D5/0.5% NSS at 50cc/ hr to begin at midnight. Dr. Ambrose will write the orders to manage the diabetes during the perioperative priod. Patient is to have hemodialysis today. CBC, CMP, PT/PTT/INR and blood culture ordered for tomorrow AM. IV antibiotics (Tigacycline, Daptomycin, Gentamicin, and meropenem) and po fluconazole to continue until changed by Dr. Lemon Notes by various consultants appreciated. Patient is clinically stable for anesthesia and surgery. Objective - Vital Signs/Intake and Output Vital Signs (last 24 hours): Temp Pulse Resp BP Pulse Ox 97.8 F 101 H 16 146/82 98 11/18/16 08:00 11/18/16 08:00 11/18/16 08:00 11/18/16 08:00 11/18/16 08:00 Intake and Output: 11/18/16 11/18/16 06:59 18:59 Intake Total 802 560 Balance 802 560 - Medications Medications: Current Medications Acetaminophen (Tylenol 325mg Tab) 650 mg PO Q4 PRN PRN Reason: Fever >100.4 F Last Admin: 10/02/16 16:27 Dose: 650 mg Acetaminophen (Tylenol 325mg Tab) 650 mg PO Q4 PRN PRN Reason: Pain, moderate (4-7) Last Admin: 09/16/16 22:34 Dose: 650 mg Albuterol Sulfate (Albuterol 0.083% Inhal Barbie (2.5 Mg/3 Ml) Ud) 2.5 mg INH RQ4 PRN PRN Reason: Shortness of Breath Albuterol/Ipratropium (Duoneb 3 Mg/0.5 Mg (3 Ml) Ud) 3 ml INH RQ4 PRN PRN Reason: Shortness of Breath Last Admin: 11/11/16 07:39 Dose: 3 ml Aspirin (Ecotrin) 81 mg PO DAILY [facility] Last Admin: 11/16/16 08:35 Dose: 81 mg Atorvastatin Calcium (Lipitor) 40 mg PO DAILY [facility] Last Admin: 11/18/16 08:38 Dose: 40 mg Benzonatate (Tessalon Perles) 200 mg PO TID PRN PRN Reason: Cough Last Admin: 11/16/16 12:41 Dose: 200 mg Calcium Carbonate (Oscal) 500 mg PO BIDWM [facility] Last Admin: 11/18/16 08:38 Dose: 500 mg Cinacalcet (Sensipar) 30 mg PO DAILY [facility] Last Admin: 11/18/16 08:39 Dose: 30 mg Collagenase (Santyl) 1 applic TOP DAILY [facility] Last Admin: 11/17/16 08:35 Dose: 1 applic Diphenhydramine HCl (Benadryl) 25 mg PO Q6 PRN PRN Reason: Itching / Pruritus Last Admin: 11/12/16 08:34 Dose: 25 mg Epoetin Tha (Procrit) 20,000 unit IV MWF [facility] Last Admin: 11/15/16 08:38 Dose: 20,000 unit Ergocalciferol (Drisdol 50,000 Intl Units Cap) 1 cap PO WED [facility] Last Admin: 11/13/16 08:42 Dose: 1 cap Fluconazole (Diflucan) 100 mg PO DAILY [facility] Last Admin: 11/18/16 08:36 Dose: 100 mg Gabapentin (Neurontin) 300 mg PO TID [facility] Last Admin: 11/18/16 13:25 Dose: 300 mg Hydrocortisone (Anusol-Hc) 1 applic [place] BID PRN PRN Reason: Inflammation Hydromorphone HCl (Dilaudid) 1 mg IVP Q3H PRN PRN Reason: Pain, severe (8-10) Last Admin: 11/18/16 12:29 Dose: 1 mg Meropenem 500 mg/ Sodium (Chloride) 100 mls @ 100 mls/hr IVPB DAILY@0100 [facility] Last Admin: 11/18/16 00:29 Dose: 100 mls/hr Sodium Chloride (Sodium Chloride 0.9%) 1,000 mls @ 10 mls/hr IV .Q24H [facility] Last Admin: 11/14/16 17:40 Dose: Not Given Gentamicin Sulfate/Sodium Chloride (Gentamicin 100mg/100ml Ns) 100 mg in 100 mls @ 100 mls/hr IVPB MWF [facility] Last Admin: 11/15/16 12:49 Dose: 100 mls/hr Tigecycline 25 mg/ Sodium (Chloride) 100 mls @ 100 mls/hr IVPB Q12 [facility] Last Admin: 11/18/16 08:47 Dose: 100 mls/hr Argatroban 250 mg/ Sodium (Chloride) 252.5 mls @ 3.25 mls/hr IV .Q24H [facility]; 0.5 MCG/KG/MIN PRN Reason: Protocol Stop: 11/18/16 23:55 Dextrose/Sodium Chloride (Dextrose 5%/0.45% Ns 1000 Ml) 1,000 mls @ 50 mls/hr IV .Q20H [facility] Sodium Chloride (Sodium Chloride 0.9%) 1,000 mls @ 15 mls/hr IV .Q24H [facility] Stop: 11/19/16 15:07 Insulin Detemir (Levemir) 18 units SC HS [facility] Insulin Human Lispro (Humalog) 4 units SC AC [facility] Lidocaine (Lidoderm) 1 ea TD DAILY [facility] Last Admin: 11/18/16 08:37 Dose: 1 ea Nystatin (Nystop Topical Powder) 1 applic TOP BID [facility] Last Admin: 11/18/16 08:38 Dose: 1 applic Ondansetron HCl (Zofran Inj) 4 mg IVP Q6 PRN PRN Reason: Nausea/Vomiting Last Admin: 09/19/16 10:26 Dose: 4 mg Pantoprazole Sodium (Protonix Ec Tab) 40 mg PO DAILY [facility] Last Admin: 11/18/16 08:38 Dose: 40 mg Sevelamer HCl (Renagel) 1,600 mg PO TID [facility] Last Admin: 11/18/16 13:25 Dose: 1,600 mg Topiramate (Topamax) 50 mg PO BID [facility] Last Admin: 11/18/16 08:39 Dose: 50 mg Vitamin B Complex/Vit C/Folic Acid (Nephro-Ajay) 1 tab PO DAILY [facility] Last Admin: 11/18/16 08:38 Dose: 1 tab - Labs Labs: 11/17/16 06:00 11/18/16 10:30 PT 14.2 Seconds (9.8-13.1) H 11/15/16 22:13 INR 1.3 (0.9-1.2) H 11/15/16 22:13 APTT 53.4 Seconds (25.6-37.1) H D 11/18/16 04:35 - Constitutional Appears: No Acute Distress - Head Exam Head Exam: NORMAL INSPECTION - Eye Exam Eye Exam: Normal appearance - ENT Exam ENT Exam: Mucous Membranes Moist - Neck Exam Neck Exam: Normal Inspection Additional comments: R subclavian Permacath intact and functions well. - Respiratory Exam Respiratory Exam: Clear to Ausculation Bilateral, NORMAL BREATHING PATTERN - Cardiovascular Exam Cardiovascular Exam: REGULAR RHYTHM, +S1, +S2 - GI/Abdominal Exam GI & Abdominal Exam: Soft - Extremities Exam Additional comments: Right BK wound has opened up further on the lateral side with dusky tissue and some serous drainage. Dr. Mccormack reapplied the moist saline dressing. The right patellar wound has some eshar (which measures 1.5-2cm) and surrounding erythema All other extremities are as before. The left femorl vein PIC line is functioning well. - Neurological Exam Neurological Exam: Alert, Awake, CN II-XII Intact, Oriented x3 - Psychiatric Exam Psychiatric exam: Anxious - Skin Skin Exam: Dry, Normal Color, Warm Assessment and Plan (1) Status post below knee amputation of right lower extremity Assessment & Plan: Osteomyelitis is present distally. Surgery to remove infected bone and clean the wound is scheduled for tomorrow. SEE SUBJECTIVE Status: Acute (2) ESRD (end stage renal disease) on dialysis Assessment & Plan: SEE SUBJECTIVE Status: Chronic (3) DM type 2 (diabetes mellitus, type 2) Assessment & Plan: SEE SUBJECTIVE Status: Chronic (4) Coagulopathy Assessment & Plan: SEE SUBJECTIVE Status: Chronic (5) Peripheral arterial occlusive disease Status: Chronic
[2016-11-18] MEDS: Epoetin Alfa 20000 UNIT/ML Inj IV SCH (16:43)
--- NOTE | 2016-11-18 17:06 | CP.PCM.PN ---
Subjective - Date & Time of Evaluation Date of Evaluation: 11/18/16 Time of Evaluation: 17:03 - Subjective Subjective: I was away for 4 days and pt now needs a cleaning of the wound and possibly further resection of the bone. Pt's blood counts are stable, and she is on argatroban so she could be anticoagulated until late tonight and have the surgery tomorrow. Objective - Vital Signs/Intake and Output Vital Signs (last 24 hours): Temp Pulse Resp BP Pulse Ox 98 F 106 H 18 148/99 H 98 11/18/16 16:00 11/18/16 16:00 11/18/16 16:00 11/18/16 16:00 11/18/16 16:00 Intake and Output: 11/18/16 11/18/16 06:59 18:59 Intake Total 802 1024 Balance 802 1024 - Medications Medications: Current Medications Acetaminophen (Tylenol 325mg Tab) 650 mg PO Q4 PRN PRN Reason: Fever >100.4 F Last Admin: 10/02/16 16:27 Dose: 650 mg Acetaminophen (Tylenol 325mg Tab) 650 mg PO Q4 PRN PRN Reason: Pain, moderate (4-7) Last Admin: 09/16/16 22:34 Dose: 650 mg Albuterol Sulfate (Albuterol 0.083% Inhal Barbie (2.5 Mg/3 Ml) Ud) 2.5 mg INH RQ4 PRN PRN Reason: Shortness of Breath Albuterol/Ipratropium (Duoneb 3 Mg/0.5 Mg (3 Ml) Ud) 3 ml INH RQ4 PRN PRN Reason: Shortness of Breath Last Admin: 11/11/16 07:39 Dose: 3 ml Aspirin (Ecotrin) 81 mg PO DAILY [facility] Last Admin: 11/16/16 08:35 Dose: 81 mg Atorvastatin Calcium (Lipitor) 40 mg PO DAILY [facility] Last Admin: 11/18/16 08:38 Dose: 40 mg Benzonatate (Tessalon Perles) 200 mg PO TID PRN PRN Reason: Cough Last Admin: 11/16/16 12:41 Dose: 200 mg Calcium Carbonate (Oscal) 500 mg PO BIDWM [facility] Last Admin: 11/18/16 16:45 Dose: 500 mg Cinacalcet (Sensipar) 30 mg PO DAILY [facility] Last Admin: 11/18/16 08:39 Dose: 30 mg Collagenase (Santyl) 1 applic TOP DAILY [facility] Last Admin: 11/18/16 15:29 Dose: 1 applic Diphenhydramine HCl (Benadryl) 25 mg PO Q6 PRN PRN Reason: Itching / Pruritus Last Admin: 11/12/16 08:34 Dose: 25 mg Epoetin Tha (Procrit) 20,000 unit IV MWF [facility] Last Admin: 11/18/16 16:43 Dose: 20,000 unit Ergocalciferol (Drisdol 50,000 Intl Units Cap) 1 cap PO WED [facility] Last Admin: 11/13/16 08:42 Dose: 1 cap Fluconazole (Diflucan) 100 mg PO DAILY [facility] Last Admin: 11/18/16 08:36 Dose: 100 mg Gabapentin (Neurontin) 300 mg PO TID [facility] Last Admin: 11/18/16 16:44 Dose: 300 mg Hydrocortisone (Anusol-Hc) 1 applic [place] BID PRN PRN Reason: Inflammation Hydromorphone HCl (Dilaudid) 1 mg IVP Q3H PRN PRN Reason: Pain, severe (8-10) Last Admin: 11/18/16 16:51 Dose: 1 mg Meropenem 500 mg/ Sodium (Chloride) 100 mls @ 100 mls/hr IVPB DAILY@0100 [facility] Last Admin: 11/18/16 00:29 Dose: 100 mls/hr Sodium Chloride (Sodium Chloride 0.9%) 1,000 mls @ 10 mls/hr IV .Q24H [facility] Last Admin: 11/14/16 17:40 Dose: Not Given Gentamicin Sulfate/Sodium Chloride (Gentamicin 100mg/100ml Ns) 100 mg in 100 mls @ 100 mls/hr IVPB MWF [facility] Last Admin: 11/15/16 12:49 Dose: 100 mls/hr Tigecycline 25 mg/ Sodium (Chloride) 100 mls @ 100 mls/hr IVPB Q12 [facility] Last Admin: 11/18/16 08:47 Dose: 100 mls/hr Argatroban 250 mg/ Sodium (Chloride) 252.5 mls @ 3.25 mls/hr IV .Q24H [facility]; 0.5 MCG/KG/MIN PRN Reason: Protocol Stop: 11/18/16 23:55 Dextrose/Sodium Chloride (Dextrose 5%/0.45% Ns 1000 Ml) 1,000 mls @ 50 mls/hr IV .Q20H [facility] Sodium Chloride (Sodium Chloride 0.9%) 1,000 mls @ 15 mls/hr IV .Q24H [facility] Stop: 11/19/16 15:07 Insulin Detemir (Levemir) 18 units SC HS [facility] Insulin Human Lispro (Humalog) 4 units SC AC [facility] Last Admin: 11/18/16 16:44 Dose: 4 units Lidocaine (Lidoderm) 1 ea TD DAILY [facility] Last Admin: 11/18/16 08:37 Dose: 1 ea Nystatin (Nystop Topical Powder) 1 applic TOP BID [facility] Last Admin: 11/18/16 16:44 Dose: 1 applic Ondansetron HCl (Zofran Inj) 4 mg IVP Q6 PRN PRN Reason: Nausea/Vomiting Last Admin: 09/19/16 10:26 Dose: 4 mg Pantoprazole Sodium (Protonix Ec Tab) 40 mg PO DAILY [facility] Last Admin: 11/18/16 08:38 Dose: 40 mg Sevelamer HCl (Renagel) 1,600 mg PO TID [facility] Last Admin: 11/18/16 16:45 Dose: 1,600 mg Topiramate (Topamax) 50 mg PO BID [facility] Last Admin: 11/18/16 16:45 Dose: 50 mg Vitamin B Complex/Vit C/Folic Acid (Nephro-Ajay) 1 tab PO DAILY [facility] Last Admin: 11/18/16 08:38 Dose: 1 tab - Labs Labs: 11/17/16 06:00 11/18/16 10:30 PT 14.2 Seconds (9.8-13.1) H 11/15/16 22:13 INR 1.3 (0.9-1.2) H 11/15/16 22:13 APTT 53.4 Seconds (25.6-37.1) H D 11/18/16 04:35
[2016-11-18] MEDS ORDERED: Insulin Detemir 100 Units/ml Inj SC SCH (22:00)
[2016-11-18] MEDS ORDERED: Dextrose 5%/0.45% NS 1,000 ML IV SCH (23:55)
[2016-11-18] MEDS ORDERED: Sodium Chloride 0.9% 1,000 ML IV SCH (23:59)
--- NOTE | 2016-11-19 00:49 | CP.PCM.PN ---
Subjective - Date & Time of Evaluation Date of Evaluation: 11/18/16 Time of Evaluation: 20:15 - Subjective Subjective: Patient is still being prepared for her procedure of debridement of her Right BKA infected bones, Dx Osteomyelitis. She is started on Argatroban to reduce the risk of other Anticoagulants. Patient Creatinine was high above 8, then she received Hemodialysis. The surgery is expected to help eliminating the risk of massive infection related to her Right Stump Osteomyelitis. i is hard to predict what might happen. There is no reported seizures and she is on Po Topamax 50 mg BID. Objective - Vital Signs/Intake and Output Vital Signs (last 24 hours): Temp Pulse Resp BP Pulse Ox 98.5 F 114 H 14 106/78 97 11/18/16 20:40 11/18/16 20:40 11/18/16 20:40 11/18/16 20:40 11/18/16 17:00 Intake and Output: 11/18/16 11/19/16 18:59 06:59 Intake Total 1264 540 Balance 1264 540 - Medications Medications: Current Medications Acetaminophen (Tylenol 325mg Tab) 650 mg PO Q4 PRN PRN Reason: Fever >100.4 F Last Admin: 10/02/16 16:27 Dose: 650 mg Acetaminophen (Tylenol 325mg Tab) 650 mg PO Q4 PRN PRN Reason: Pain, moderate (4-7) Last Admin: 09/16/16 22:34 Dose: 650 mg Albuterol Sulfate (Albuterol 0.083% Inhal Barbie (2.5 Mg/3 Ml) Ud) 2.5 mg INH RQ4 PRN PRN Reason: Shortness of Breath Albuterol/Ipratropium (Duoneb 3 Mg/0.5 Mg (3 Ml) Ud) 3 ml INH RQ4 PRN PRN Reason: Shortness of Breath Last Admin: 11/11/16 07:39 Dose: 3 ml Aspirin (Ecotrin) 81 mg PO DAILY [facility] Last Admin: 11/16/16 08:35 Dose: 81 mg Atorvastatin Calcium (Lipitor) 40 mg PO DAILY [facility] Last Admin: 11/18/16 08:38 Dose: 40 mg Benzonatate (Tessalon Perles) 200 mg PO TID PRN PRN Reason: Cough Last Admin: 11/16/16 12:41 Dose: 200 mg Calcium Carbonate (Oscal) 500 mg PO BIDWM [facility] Last Admin: 11/18/16 16:45 Dose: 500 mg Cinacalcet (Sensipar) 30 mg PO DAILY [facility] Last Admin: 11/18/16 08:39 Dose: 30 mg Collagenase (Santyl) 1 applic TOP DAILY [facility] Last Admin: 11/18/16 15:29 Dose: 1 applic Diphenhydramine HCl (Benadryl) 25 mg PO Q6 PRN PRN Reason: Itching / Pruritus Last Admin: 11/12/16 08:34 Dose: 25 mg Epoetin Tha (Procrit) 20,000 unit IV [facility] [place] Admin: 11/18/16 16:43 Dose: 20,000 unit Ergocalciferol (Drisdol 50,000 Intl Units Cap) 1 cap PO WED [facility] Last Admin: 11/13/16 08:42 Dose: 1 cap Fluconazole (Diflucan) 100 mg PO DAILY [facility] Last Admin: 11/18/16 08:36 Dose: 100 mg Gabapentin (Neurontin) 300 mg PO TID [facility] Last Admin: 11/18/16 16:44 Dose: 300 mg Hydrocortisone (Anusol-Hc) 1 applic [place] BID PRN PRN Reason: Inflammation Hydromorphone HCl (Dilaudid) 1 mg IVP Q3H PRN PRN Reason: Pain, severe (8-10) Last Admin: 11/18/16 21:10 Dose: 1 mg Meropenem 500 mg/ Sodium (Chloride) 100 mls @ 100 mls/hr IVPB DAILY@0100 [facility] Last Admin: 11/18/16 00:29 Dose: 100 mls/hr Sodium Chloride (Sodium Chloride 0.9%) 1,000 mls @ 10 mls/hr IV .Q24H [facility] Last Admin: 11/14/16 17:40 Dose: Not Given Gentamicin Sulfate/Sodium Chloride (Gentamicin 100mg/100ml Ns) 100 mg in 100 mls @ 100 mls/hr IVPB [facility] [place] Last Admin: 11/15/16 12:49 Dose: 100 mls/hr Tigecycline 25 mg/ Sodium (Chloride) 100 mls @ 100 mls/hr IVPB Q12 [facility] Last Admin: 11/18/16 21:35 Dose: 100 mls/hr Dextrose/Sodium Chloride (Dextrose 5%/0.45% Ns 1000 Ml) 1,000 mls @ 50 mls/hr IV .Q20H [facility] Sodium Chloride (Sodium Chloride 0.9%) 1,000 mls @ 15 mls/hr IV .Q24H [facility] Stop: 11/19/16 15:07 Insulin Detemir (Levemir) 18 units SC HS [facility] Insulin Human Lispro (Humalog) 4 units SC AC [facility] Last Admin: 11/18/16 16:44 Dose: 4 units Lidocaine (Lidoderm) 1 ea TD DAILY [facility] Last Admin: 11/18/16 08:37 Dose: 1 ea Nystatin (Nystop Topical Powder) 1 applic TOP BID [facility] Last Admin: 11/18/16 16:44 Dose: 1 applic Ondansetron HCl (Zofran Inj) 4 mg IVP Q6 PRN PRN Reason: Nausea/Vomiting Last Admin: 09/19/16 10:26 Dose: 4 mg Pantoprazole Sodium (Protonix Ec Tab) 40 mg PO DAILY [facility] Last Admin: 11/18/16 08:38 Dose: 40 mg Sevelamer HCl (Renagel) 1,600 mg PO TID [facility] Last Admin: 11/18/16 16:45 Dose: 1,600 mg Topiramate (Topamax) 50 mg PO BID [facility] Last Admin: 11/18/16 16:45 Dose: 50 mg Vitamin B Complex/Vit C/Folic Acid (Nephro-Ajay) 1 tab PO DAILY [facility] Last Admin: 11/18/16 08:38 Dose: 1 tab - Labs Labs: 11/17/16 06:00 11/18/16 10:30 PT 14.2 Seconds (9.8-13.1) H 11/15/16 22:13 INR 1.3 (0.9-1.2) H 11/15/16 22:13 APTT 53.4 Seconds (25.6-37.1) H D 11/18/16 04:35 Assessment and Plan (1) Diabetes Status: Chronic (2) ESRD (end stage renal disease) Status: Chronic (3) Cellulitis of leg Status: Chronic (4) Hyperlipidemia Status: Chronic (5) Back pain Status: Acute (6) Bacteremia due to Gram-negative bacteria Status: Acute (7) Diabetes mellitus type 2 with peripheral artery disease Status: Acute (8) PVD (peripheral vascular disease) Status: Acute (9) Osteomyelitis of right leg Status: Acute
[2016-11-19] MEDS: Meropenem 500 MG in Sodium Chloride 0.9% 100 ML IVPB SCH (01:00)
[2016-11-19 05:19] LABS: HEMATOCRIT 32.8 % (34.0-47.0); MEAN CELL VOLUME 101.9 fl (81.0-99.0); MEAN CORPUSCULAR HEMOGLOBIN 31.9 pg (27.0-31.0); MEAN CORPUSCULAR HGB CONC 31.3 g/dL (33.0-37.0); RED CELL DISTRIBUTION WIDTH 24.6 % (11.5-14.5); WHITE BLOOD COUNT 9.7 K/uL (4.8-10.8)
[2016-11-19 07:24] LABS: ALB/GLOB RATIO 0.8 (1.0-2.1); ALKALINE PHOSPHATASE 194 U/L (38-126); ALT/SGPT 36 U/L (9-52); AST/SGOT 35 U/L (14-36); BILIRUBIN,TOTAL 0.4 mg/dl (0.2-1.3); BLOOD UREA NITROGEN 45 mg/dl (7-17); CALCIUM 8.9 mg/dL (8.4-10.2); CARBON DIOXIDE 27 mmol/L (22-30); CHLORIDE 101 mmol/L (98-107); GFR AFRICAN-AMERICAN 11; GLUCOSE,RANDOM 107 mg/dL (65-105); POTASSIUM 4.7 MMOL/L (3.6-5.0); SODIUM 140 mmol/l (132-148); TOTAL PROTEIN 7.9 G/DL (6.3-8.2)
[2016-11-19] MEDS: Insulin Lispro (humaLOG) 100 Units/ml Inj SC SCH ×3 (07:30→16:30)
[2016-11-19 07:38] LABS: PARTIAL THROMBOPLASTIN TIME 55.8 Seconds (25.6-37.1)
--- NOTE | 2016-11-19 08:28 | CARD ---
APPROVED REPORT EKG Measurement Heart [id number] OR [id number] <Conclusion> Sinus tachycardia Low voltage QRS Borderline ECG
[2016-11-19] MEDS: Lidocaine 5% Patch TD SCH (09:00)
[2016-11-19] MEDS: Multivitamin Vitamin B Complex (Nephro-Vite) Tab PO SCH (09:01)
[2016-11-19] MEDS: Pantoprazole 40 mg EC Tab PO SCH (09:02)
[2016-11-19] MEDS: SODIUM CHLORIDE 0.9% IVPB SCH ×2 (09:04→21:11)
[2016-11-19] MEDS: TIGECYCLINE IVPB SCH ×2 (09:04→21:11)
--- NOTE | 2016-11-19 10:21 | CP.PCM.PN ---
Subjective - Date & Time of Evaluation Date of Evaluation: 11/19/16 Time of Evaluation: 10:20 - Subjective Subjective: Patient and bed awake consciousness comfortable no distress Vital sign noted to be stable No new event reported Patient is going for debridement of the right stump Continue hemodialysis as scheduled for tomorrow Objective - Vital Signs/Intake and Output Vital Signs (last 24 hours): Temp Pulse Resp BP Pulse Ox 98.1 F 106 H 12 97/71 L 97 11/19/16 05:00 11/19/16 05:00 11/19/16 05:00 11/19/16 05:00 11/19/16 01:00 Intake and Output: 11/19/16 11/19/16 06:59 18:59 Intake Total 716 Balance 716 - Medications Medications: Current Medications Acetaminophen (Tylenol 325mg Tab) 650 mg PO Q4 PRN PRN Reason: Fever >100.4 F Last Admin: 10/02/16 16:27 Dose: 650 mg Acetaminophen (Tylenol 325mg Tab) 650 mg PO Q4 PRN PRN Reason: Pain, moderate (4-7) Last Admin: 09/16/16 22:34 Dose: 650 mg Albuterol Sulfate (Albuterol 0.083% Inhal Barbie (2.5 Mg/3 Ml) Ud) 2.5 mg INH RQ4 PRN PRN Reason: Shortness of Breath Albuterol/Ipratropium (Duoneb 3 Mg/0.5 Mg (3 Ml) Ud) 3 ml INH RQ4 PRN PRN Reason: Shortness of Breath Last Admin: 11/11/16 07:39 Dose: 3 ml Aspirin (Ecotrin) 81 mg PO DAILY [facility] Last Admin: 11/16/16 08:35 Dose: 81 mg Atorvastatin Calcium (Lipitor) 40 mg PO DAILY [facility] Last Admin: 11/19/16 09:01 Dose: 40 mg Benzonatate (Tessalon Perles) 200 mg PO TID PRN PRN Reason: Cough Last Admin: 11/16/16 12:41 Dose: 200 mg Calcium Carbonate (Oscal) 500 mg PO BIDWM [facility] Last Admin: 11/19/16 09:01 Dose: 500 mg Cinacalcet (Sensipar) 30 mg PO DAILY [facility] Last Admin: 11/19/16 09:02 Dose: 30 mg Collagenase (Santyl) 1 applic TOP DAILY [facility] Last Admin: 11/18/16 15:29 Dose: 1 applic Diphenhydramine HCl (Benadryl) 25 mg PO Q6 PRN PRN Reason: Itching / Pruritus Last Admin: 11/12/16 08:34 Dose: 25 mg Epoetin Tha (Procrit) 20,000 [place] [facility] [place] Last Admin: 11/18/16 16:43 Dose: 20,000 unit Ergocalciferol (Drisdol 50,000 Intl Units Cap) 1 cap PO WED [facility] Last Admin: 11/13/16 08:42 Dose: 1 cap Fluconazole (Diflucan) 100 mg PO DAILY [facility] Last Admin: 11/19/16 09:00 Dose: 100 mg Gabapentin (Neurontin) 300 mg PO TID [facility] Last Admin: 11/19/16 09:01 Dose: 300 mg Hydrocortisone (Anusol-Hc) 1 applic [place] BID PRN PRN Reason: Inflammation Hydromorphone HCl (Dilaudid) 1 mg IVP Q3H PRN PRN Reason: Pain, severe (8-10) Last Admin: 11/19/16 08:58 Dose: 1 mg Meropenem 500 mg/ Sodium (Chloride) 100 mls @ 100 mls/hr IVPB DAILY@0100 [facility] Last Admin: 11/19/16 01:00 Dose: 100 mls/hr Sodium Chloride (Sodium Chloride 0.9%) 1,000 mls @ 10 mls/hr IV .Q24H [facility] Last Admin: 11/14/16 17:40 Dose: Not Given Gentamicin Sulfate/Sodium Chloride (Gentamicin 100mg/100ml Ns) 100 mg in 100 mls @ 100 mls/hr [place] [facility] [place] Last Admin: 11/15/16 12:49 Dose: 100 mls/hr Tigecycline 25 mg/ Sodium (Chloride) 100 mls @ 100 mls/hr IVPB Q12 [facility] Last Admin: 11/19/16 09:04 Dose: 100 mls/hr Dextrose/Sodium Chloride (Dextrose 5%/0.45% Ns 1000 Ml) 1,000 mls @ 50 mls/hr IV .Q20H [facility] Last Admin: 11/19/16 01:00 Dose: 50 mls/hr Sodium Chloride (Sodium Chloride 0.9%) 1,000 mls @ 15 mls/hr IV .Q24H [facility] Stop: 11/19/16 15:07 Insulin Detemir (Levemir) 18 units SC HS [facility] Last Admin: 11/18/16 22:00 Dose: 18 u Insulin Human Lispro (Humalog) 4 units SC AC [facility] Last Admin: 11/19/16 07:30 Dose: Not Given Lidocaine (Lidoderm) 1 ea TD DAILY [facility] Last Admin: 11/19/16 09:00 Dose: 1 ea Nystatin (Nystop Topical Powder) 1 applic TOP BID [facility] Last Admin: 11/19/16 09:01 Dose: 1 applic Ondansetron HCl (Zofran Inj) 4 mg IVP Q6 PRN PRN Reason: Nausea/Vomiting Last Admin: 09/19/16 10:26 Dose: 4 mg Pantoprazole Sodium (Protonix Ec Tab) 40 mg PO DAILY [facility] Last Admin: 11/19/16 09:02 Dose: 40 mg Sevelamer HCl (Renagel) 1,600 mg PO TID [facility] Last Admin: 11/19/16 09:02 Dose: 1,600 mg Topiramate (Topamax) 50 mg PO BID [facility] Last Admin: 11/19/16 09:03 Dose: 50 mg Vitamin B Complex/Vit C/Folic Acid (Nephro-Ajay) 1 tab PO DAILY [facility] Last Admin: 11/19/16 09:01 Dose: 1 tab - Labs Labs: 11/19/16 04:20 11/19/16 06:00 PT 17.2 Seconds (9.8-13.1) H 11/19/16 06:00 INR 1.5 (0.9-1.2) H 11/19/16 06:00 APTT 55.8 Seconds (25.6-37.1) H 11/19/16 06:00 Assessment and Plan (1) ESRD (end stage renal disease) Status: Chronic (2) Cellulitis of leg Status: Chronic
--- NOTE | 2016-11-19 11:59 | CP.PCM.PN ---
Subjective - Date & Time of Evaluation Date of Evaluation: 11/19/16 Time of Evaluation: 11:23 - Subjective Subjective: Pt jhas no c/o pains at this time. She is going for surgery this afternoon for removing of the lower tip of the bone which showed osteomylitis. Her CBC is stable. Argatroban was held since last night. Will restart eliquis after surgery , when surgeon feels comfortable re the anticoagulation Objective - Vital Signs/Intake and Output Vital Signs (last 24 hours): Temp Pulse Resp BP Pulse Ox 98.1 F 106 H 12 97/71 L 97 11/19/16 05:00 11/19/16 05:00 11/19/16 05:00 11/19/16 05:00 11/19/16 01:00 Intake and Output: 11/19/16 11/19/16 06:59 18:59 Intake Total 716 Balance 716 - Medications Medications: Current Medications Acetaminophen (Tylenol 325mg Tab) 650 mg PO Q4 PRN PRN Reason: Fever >100.4 F Last Admin: 10/02/16 16:27 Dose: 650 mg Acetaminophen (Tylenol 325mg Tab) 650 mg PO Q4 PRN PRN Reason: Pain, moderate (4-7) Last Admin: 09/16/16 22:34 Dose: 650 mg Albuterol Sulfate (Albuterol 0.083% Inhal Barbie (2.5 Mg/3 Ml) Ud) 2.5 mg INH RQ4 PRN PRN Reason: Shortness of Breath Albuterol/Ipratropium (Duoneb 3 Mg/0.5 Mg (3 Ml) Ud) 3 ml INH RQ4 PRN PRN Reason: Shortness of Breath Last Admin: 11/11/16 07:39 Dose: 3 ml Aspirin (Ecotrin) 81 mg PO DAILY [facility] Last Admin: 11/16/16 08:35 Dose: 81 mg Atorvastatin Calcium (Lipitor) 40 mg PO DAILY [facility] Last Admin: 11/19/16 09:01 Dose: 40 mg Benzonatate (Tessalon Perles) 200 mg PO TID PRN PRN Reason: Cough Last Admin: 11/16/16 12:41 Dose: 200 mg Calcium Carbonate (Oscal) 500 mg PO BIDWM [facility] Last Admin: 11/19/16 09:01 Dose: 500 mg Cinacalcet (Sensipar) 30 mg PO DAILY [facility] Last Admin: 11/19/16 09:02 Dose: 30 mg Collagenase (Santyl) 1 applic TOP DAILY [facility] Last Admin: 11/18/16 15:29 Dose: 1 applic Diphenhydramine HCl (Benadryl) 25 mg PO Q6 PRN PRN Reason: Itching / Pruritus Last Admin: 11/12/16 08:34 Dose: 25 mg Epoetin Tha (Procrit) 20,000 [place] [facility] [place] Admin: 11/18/16 16:43 Dose: 20,000 unit Ergocalciferol (Drisdol 50,000 Intl Units Cap) 1 cap PO WED [facility] Last Admin: 11/13/16 08:42 Dose: 1 cap Fluconazole (Diflucan) 100 mg PO DAILY [facility] Last Admin: 11/19/16 09:00 Dose: 100 mg Gabapentin (Neurontin) 300 mg PO TID [facility] Last Admin: 11/19/16 09:01 Dose: 300 mg Hydrocortisone (Anusol-Hc) 1 applic [place] BID PRN PRN Reason: Inflammation Hydromorphone HCl (Dilaudid) 1 mg IVP Q3H PRN PRN Reason: Pain, severe (8-10) Last Admin: 11/19/16 08:58 Dose: 1 mg Meropenem 500 mg/ Sodium (Chloride) 100 mls @ 100 mls/hr IVPB DAILY@0100 [facility] Last Admin: 11/19/16 01:00 Dose: 100 mls/hr Sodium Chloride (Sodium Chloride 0.9%) 1,000 mls @ 10 mls/hr IV .Q24H [facility] Last Admin: 11/14/16 17:40 Dose: Not Given Gentamicin Sulfate/Sodium Chloride (Gentamicin 100mg/100ml Ns) 100 mg in 100 mls @ 100 mls/hr IVPB MWF [facility] Last Admin: 11/15/16 12:49 Dose: 100 mls/hr Tigecycline 25 mg/ Sodium (Chloride) 100 mls @ 100 mls/hr IVPB Q12 [facility] Last Admin: 11/19/16 09:04 Dose: 100 mls/hr Dextrose/Sodium Chloride (Dextrose 5%/0.45% Ns 1000 Ml) 1,000 mls @ 50 mls/hr IV .Q20H [facility] Last Admin: 11/19/16 01:00 Dose: 50 mls/hr Sodium Chloride (Sodium Chloride 0.9%) 1,000 mls @ 15 mls/hr IV .Q24H [facility] Stop: 11/19/16 15:07 Insulin Detemir (Levemir) 18 units SC HS [facility] Last Admin: 11/18/16 22:00 Dose: 18 u Insulin Human Lispro (Humalog) 4 units SC AC [facility] Last Admin: 11/19/16 07:30 Dose: Not Given Lidocaine (Lidoderm) 1 ea TD DAILY [facility] Last Admin: 11/19/16 09:00 Dose: 1 ea Nystatin (Nystop Topical Powder) 1 applic TOP BID [facility] Last Admin: 11/19/16 09:01 Dose: 1 applic Ondansetron HCl (Zofran Inj) 4 mg IVP Q6 PRN PRN Reason: Nausea/Vomiting Last Admin: 09/19/16 10:26 Dose: 4 mg Pantoprazole Sodium (Protonix Ec Tab) 40 mg PO DAILY [facility] Last Admin: 11/19/16 09:02 Dose: 40 mg Sevelamer HCl (Renagel) 1,600 mg PO TID [facility] Last Admin: 11/19/16 09:02 Dose: 1,600 mg Topiramate (Topamax) 50 mg PO BID [facility] Last Admin: 11/19/16 09:03 Dose: 50 mg Vitamin B Complex/Vit C/Folic Acid (Nephro-Ajay) 1 tab PO DAILY [facility] Last Admin: 11/19/16 09:01 Dose: 1 tab - Labs Labs: 11/19/16 04:20 11/19/16 06:00 PT 17.2 Seconds (9.8-13.1) H 11/19/16 06:00 INR 1.5 (0.9-1.2) H 11/19/16 06:00 APTT 55.8 Seconds (25.6-37.1) H 11/19/16 06:00
[2016-11-19] MEDS ORDERED: Midazolam 2 MG/2 ML VIAL ONE (15:24)
[2016-11-19] MEDS ORDERED: Propofol 10 mg/ml Inj (20 ML) ONE (15:24)
[2016-11-19] MEDS ORDERED: Vecuronium 10 mg Inj ONE (15:25)
[2016-11-19] MEDS ORDERED: Sodium Chloride 0.9% 1,000 ML IV ONE (15:30)
[2016-11-19] MEDS ORDERED: Neostigmine Methylsulfate 3mg/3ml Syringe IV ONE (16:48)
[2016-11-19] MEDS: HYDROmorphone 0.5 mg/0.5 ml ISec IVP PRN ×2 (17:12→17:40)
--- NOTE | 2016-11-19 17:15 | PCM.SURG1 ---
Surgeon's Initial Post Op Note - Surgeon's Notes Surgeon: Dr. Mccormack Theater Technician: Dr. Sweeney PGY-3, Dr. Groves PGY-2, Dr. Amado PGY-1 Type of Anesthesia: General Endo Pre-Operative Diagnosis: Infected right BKA Operative Findings: Infected right BKA Post-Operative Diagnosis: Infected right BKA Operation Performed: Revision of right BKA, wound washout, sharp debridement Specimen/Specimens Removed: bone, skin and subcutaneous tissue Estimated Blood Loss: EBL {In ML}: 75 Blood Products Given: N/A Drains Used: No Drains Post-Op Condition: Poor Date of Surgery/Procedure: 11/19/16 Time of Surgery/Procedure: 17:15
[2016-11-19] MEDS ORDERED: HYDROmorphone 0.5 mg/0.5 ml ISec ONE (17:24)
[2016-11-19] MEDS ORDERED: Sodium Chloride 0.9% 1,000 ML IV SCH (17:30)
--- NOTE | 2016-11-19 19:27 | CP.PCM.PN ---
Subjective - Date & Time of Evaluation Date of Evaluation: 11/19/16 Time of Evaluation: 19:19 - Subjective Subjective: Status-post revision of right BKA with sharp debridement and wound washout because of infection. She continues of IV tigacycline, meropenem, daptomycin, and gentamicin and on po fluconazole Patient is drowsy but arousale. Currently pain is not fully controlled on FISH FILLETER of only 0.2mg Dilaudid evry 30 min. I will override this with her usual dose of Dilaudid of 1mg iv slow push q3h prn, Arm stick glucose is 94. I will start IV D5/0.5% saline at 50 cc/hr to prevent hypoglycemia. Discussed with Dr. Ambrose. Patient is to receive Levemir 6 units at hs and will continue on insulin Lispro at 4 units subcut tid ac. Temp 98.4 Pulse 99 BP 92/55 Resp unlabored at 17/. Oxygen saturation is low (92%) but this probably reflects poor reading of oximeter on finger. Patient is off anticoagulants today but will want to restart Eliquis and aspirin as soon as possible - await OK from Dr. Mccormack. Objective - Vital Signs/Intake and Output Vital Signs (last 24 hours): Temp Pulse Resp BP Pulse Ox 98.2 F 97 H 11 L 128/70 97 11/19/16 18:34 11/19/16 18:34 11/19/16 18:34 11/19/16 18:34 11/19/16 18:34 Intake and Output: 11/19/16 11/20/16 18:59 06:59 Intake Total 1010 Balance 1010 - Medications Medications: Current Medications Acetaminophen (Tylenol 325mg Tab) 650 mg PO Q4 PRN PRN Reason: Fever >100.4 F Last Admin: 10/02/16 16:27 Dose: 650 mg Acetaminophen (Tylenol 325mg Tab) 650 mg PO Q4 PRN PRN Reason: Pain, moderate (4-7) Last Admin: 09/16/16 22:34 Dose: 650 mg Albuterol Sulfate (Albuterol 0.083% Inhal Barbie (2.5 Mg/3 Ml) Ud) 2.5 mg INH RQ4 PRN PRN Reason: Shortness of Breath Albuterol/Ipratropium (Duoneb 3 Mg/0.5 Mg (3 Ml) Ud) 3 ml INH RQ4 PRN PRN Reason: Shortness of Breath Last Admin: 11/11/16 07:39 Dose: 3 ml Aspirin (Ecotrin) 81 mg PO DAILY [facility] Last Admin: 11/16/16 08:35 Dose: 81 mg Atorvastatin Calcium (Lipitor) 40 mg PO DAILY [facility] Last Admin: 11/19/16 09:01 Dose: 40 mg Benzonatate (Tessalon Perles) 200 mg PO TID PRN PRN Reason: Cough Last Admin: 11/16/16 12:41 Dose: 200 mg Calcium Carbonate (Oscal) 500 mg PO BIDWM [facility] Last Admin: 11/19/16 17:00 Dose: Not Given Cinacalcet (Sensipar) 30 mg PO DAILY [facility] Last Admin: 11/19/16 09:02 Dose: 30 mg Collagenase (Santyl) 1 applic TOP DAILY [facility] Last Admin: 11/18/16 15:29 Dose: 1 applic Diphenhydramine HCl (Benadryl) 25 mg PO Q6 PRN PRN Reason: Itching / Pruritus Last Admin: 11/12/16 08:34 Dose: 25 mg Epoetin Tha (Procrit) 20,000 unit IV MWF [facility] Last Admin: 11/18/16 16:43 Dose: 20,000 unit Ergocalciferol (Drisdol 50,000 Intl Units Cap) 1 cap PO WED [facility] Last Admin: 11/13/16 08:42 Dose: 1 cap Fluconazole (Diflucan) 100 mg PO DAILY [facility] Last Admin: 11/19/16 09:00 Dose: 100 mg Gabapentin (Neurontin) 300 mg PO TID [facility] Last Admin: 11/19/16 17:00 Dose: Not Given Hydrocortisone (Anusol-Hc) 1 applic [place] BID PRN PRN Reason: Inflammation Hydromorphone HCl (Dilaudid) 1 mg IVP Q3H PRN PRN Reason: Pain, severe (8-10) Last Admin: 11/19/16 13:10 Dose: 1 mg Hydromorphone HCl (Dilaudid) 0.5 mg IVP Q15M PRN PRN Reason: Pain, moderate (4-7) Stop: 11/19/16 19:20 Last Admin: 11/19/16 17:40 Dose: 0.5 mg Hydromorphone HCl (Dilaudid 0.2 Mg/Ml Manager Customer) 6 mg IV DAILY [facility] PRN Reason: Protocol Stop: 11/20/16 23:59 Last Admin: 11/19/16 18:00 Dose: 0 mg Meropenem 500 mg/ Sodium (Chloride) 100 mls @ 100 mls/hr IVPB DAILY@0100 [facility] Last Admin: 11/19/16 01:00 Dose: 100 mls/hr Sodium Chloride (Sodium Chloride 0.9%) 1,000 mls @ 10 mls/hr IV .Q24H [facility] Last Admin: 11/14/16 17:40 Dose: Not Given Gentamicin Sulfate/Sodium Chloride (Gentamicin 100mg/100ml Ns) 100 mg in 100 mls @ 100 mls/hr IVPB MWF [facility] Last Admin: 11/15/16 12:49 Dose: 100 mls/hr Tigecycline 25 mg/ Sodium (Chloride) 100 mls @ 100 mls/hr IVPB Q12 [facility] Last Admin: 11/19/16 09:04 Dose: 100 mls/hr Dextrose/Sodium Chloride (Dextrose 5%/0.45% Ns 1000 Ml) 1,000 mls @ 50 mls/hr IV .Q20H [facility] Last Admin: 11/19/16 01:00 Dose: 50 mls/hr Sodium Chloride (Sodium Chloride 0.9%) 1,000 mls @ 10 mls/hr IV .Q24H [facility] Insulin Detemir (Levemir) 18 units SC HS [facility] Last Admin: 11/18/16 22:00 Dose: 18 u Insulin Human Lispro (Humalog) 4 units SC AC [facility] Last Admin: 11/19/16 16:30 Dose: Not Given Lidocaine (Lidoderm) 1 ea TD DAILY [facility] Last Admin: 11/19/16 09:00 Dose: 1 ea Nystatin (Nystop Topical Powder) 1 applic TOP BID [facility] Last Admin: 11/19/16 17:00 Dose: Not Given Ondansetron HCl (Zofran Inj) 4 mg IVP Q6 PRN PRN Reason: Nausea/Vomiting Last Admin: 09/19/16 10:26 Dose: 4 mg Ondansetron HCl (Zofran Inj) 4 mg IVP ONCE PRN PRN Reason: Nausea/Vomiting Stop: 11/19/16 19:20 Pantoprazole Sodium (Protonix Ec Tab) 40 mg PO DAILY [facility] Last Admin: 11/19/16 09:02 Dose: 40 mg Sevelamer HCl (Renagel) 1,600 mg PO TID [facility] Last Admin: 11/19/16 17:00 Dose: Not Given Topiramate (Topamax) 50 mg PO BID [facility] Last Admin: 11/19/16 17:00 Dose: Not Given Vitamin B Complex/Vit C/Folic Acid (Nephro-Ajay) 1 tab PO DAILY [facility] Last Admin: 11/19/16 09:01 Dose: 1 tab - Labs Labs: 11/19/16 04:20 11/19/16 06:00 PT 17.2 Seconds (9.8-13.1) H 11/19/16 06:00 INR 1.5 (0.9-1.2) H 11/19/16 06:00 APTT 55.8 Seconds (25.6-37.1) H 11/19/16 06:00 - Constitutional Appears: Other (Drowsy but arousable.) - Head Exam Head Exam: NORMAL INSPECTION - Eye Exam Eye Exam: Normal appearance - ENT Exam ENT Exam: Mucous Membranes Moist - Neck Exam Neck Exam: Normal Inspection Additional comments: Right subclavian Permacath intact. - Respiratory Exam Respiratory Exam: Clear to Ausculation Bilateral, NORMAL BREATHING PATTERN - Cardiovascular Exam Cardiovascular Exam: REGULAR RHYTHM, +S1 - GI/Abdominal Exam GI & Abdominal Exam: Soft - Extremities Exam Additional comments: Dressing right BK surgical site is dry and intact. Other extremities as before. Left femoral vein PICC line in place. - Skin Skin Exam: Dry, Normal Color, Warm Assessment and Plan (1) Status post below knee amputation of right lower extremity Assessment & Plan: SEE SUBJECTIVE Status: Acute (2) ESRD (end stage renal disease) on dialysis Status: Chronic (3) DM type 2 (diabetes mellitus, type 2) Assessment & Plan: SEE SUBJETIVE Status: Chronic (4) Coagulopathy Assessment & Plan: SEE SUBJECTIVE Status: Chronic (5) Peripheral arterial occlusive disease Status: Chronic
[2016-11-19] MEDS ORDERED: Dextrose 5%/0.45% NS 1,000 ML IV SCH (19:45)
[2016-11-19 21:29] LABS: BASO # 0.1 K/uL (0.0-0.2); BASO % 0.7 % (0.0-2.0); EOS # 0.6 K/uL (0.0-0.7); EOS % 7.3 % (0.0-4.0); HEMATOCRIT 31.2 % (34.0-47.0); LYMPH % 25.7 % (20.0-40.0); MEAN CELL VOLUME 101.6 fl (81.0-99.0); MEAN CORPUSCULAR HEMOGLOBIN 32.5 pg (27.0-31.0); MEAN PLATELET VOLUME 9.4 fl (7.2-11.7); MONO # 1.1 K/uL (0.0-0.8); MONO % 14.5 % (0.0-10.0); NEUT # 4.1 K/uL (1.8-7.0); NEUT % 51.8 % (50.0-75.0); NRBC % 0.1 % (0.0-0.0); RED CELL DISTRIBUTION WIDTH 23.7 % (11.5-14.5); WHITE BLOOD COUNT 7.8 K/uL (4.8-10.8)
[2016-11-19] MEDS: Insulin Detemir 100 Units/ml Inj SC SCH (21:35)
--- NOTE | 2016-11-19 23:50 | CP.PCM.PN ---
Subjective - Date & Time of Evaluation Date of Evaluation: 11/19/16 Time of Evaluation: 20:00 - Subjective Subjective: Patient is suffering from high serum glucose up to 500. Her arm stick glucose is 94. Patient underwent a debridement of her Osteomyelitis of the Right BKA. She is reported to be drowsy but arousable. Vital signs show tachycardia. She has no reported seizures and she is receiving Topamax 50 mg BID.. She is suffering from ESRD and her Dialysis is on M,W,F. Objective - Vital Signs/Intake and Output Vital Signs (last 24 hours): Temp Pulse Resp BP Pulse Ox 98.6 F 109 H 18 142/93 H 100 11/19/16 20:00 11/19/16 22:00 11/19/16 22:00 11/19/16 22:00 11/19/16 22:00 Intake and Output: 11/19/16 11/20/16 18:59 06:59 Intake Total 1010 220 Balance 1010 220 - Medications Medications: Current Medications Acetaminophen (Tylenol 325mg Tab) 650 mg PO Q4 PRN PRN Reason: Fever >100.4 F Last Admin: 10/02/16 16:27 Dose: 650 mg Acetaminophen (Tylenol 325mg Tab) 650 mg PO Q4 PRN PRN Reason: Pain, moderate (4-7) Last Admin: 09/16/16 22:34 Dose: 650 mg Albuterol Sulfate (Albuterol 0.083% Inhal Baribe (2.5 Mg/3 Ml) Ud) 2.5 mg INH RQ4 PRN PRN Reason: Shortness of Breath Albuterol/Ipratropium (Duoneb 3 Mg/0.5 Mg (3 Ml) Ud) 3 ml INH RQ4 PRN PRN Reason: Shortness of Breath Last Admin: 11/11/16 07:39 Dose: 3 ml Aspirin (Ecotrin) 81 mg PO DAILY [facility] Last Admin: 11/16/16 08:35 Dose: 81 mg Atorvastatin Calcium (Lipitor) 40 mg PO DAILY [facility] Last Admin: 11/19/16 09:01 Dose: 40 mg Benzonatate (Tessalon Perles) 200 mg PO TID PRN PRN Reason: Cough Last Admin: 11/16/16 12:41 Dose: 200 mg Calcium Carbonate (Oscal) 500 mg PO BIDWM [facility] Last Admin: 11/19/16 17:00 Dose: Not Given Cinacalcet (Sensipar) 30 mg PO DAILY [facility] Last Admin: 11/19/16 09:02 Dose: 30 mg Collagenase (Santyl) 1 applic TOP DAILY [facility] Last Admin: 11/18/16 15:29 Dose: 1 applic Diphenhydramine HCl (Benadryl) 25 mg PO Q6 PRN PRN Reason: Itching / Pruritus Last Admin: 11/12/16 08:34 Dose: 25 mg Epoetin Tha (Procrit) 20,000 unit [place] [facility] Last Admin: 11/18/16 16:43 Dose: 20,000 unit Ergocalciferol (Drisdol 50,000 Intl Units Cap) 1 cap PO WED [facility] Last Admin: 11/13/16 08:42 Dose: 1 cap Fluconazole (Diflucan) 100 mg PO DAILY [facility] Last Admin: 11/19/16 09:00 Dose: 100 mg Gabapentin (Neurontin) 300 mg PO TID [facility] Last Admin: 11/19/16 17:00 Dose: Not Given Hydrocortisone (Anusol-Hc) 1 applic AR BID PRN PRN Reason: Inflammation Hydromorphone HCl (Dilaudid) 1 mg IVP Q3H PRN PRN Reason: Pain, severe (8-10) Last Admin: 11/19/16 13:10 Dose: 1 mg Hydromorphone HCl (Dilaudid 0.2 Mg/Ml Hand Inserter Operator) 6 mg IV DAILY [facility] PRN Reason: Protocol Stop: 11/20/16 23:59 Last Admin: 11/19/16 18:00 Dose: 0 mg Meropenem 500 mg/ Sodium (Chloride) 100 mls @ 100 mls/hr IVPB DAILY@0100 [facility] Last Admin: 11/19/16 01:00 Dose: 100 mls/hr Gentamicin Sulfate/Sodium Chloride (Gentamicin 100mg/100ml Ns) 100 mg in 100 mls @ 100 mls/hr IVPB MWF [facility] Last Admin: 11/15/16 12:49 Dose: 100 mls/hr Tigecycline 25 mg/ Sodium (Chloride) 100 mls @ 100 mls/hr IVPB Q12 [facility] Last Admin: 11/19/16 21:11 Dose: 100 mls/hr Dextrose/Sodium Chloride (Dextrose 5%/0.45% Ns 1000 Ml) 1,000 mls @ 50 mls/hr IV .Q20H [facility] Last Admin: 11/19/16 01:00 Dose: 50 mls/hr Sodium Chloride (Sodium Chloride 0.9%) 1,000 mls @ 10 mls/hr IV .Q24H [facility] Dextrose/Sodium Chloride (Dextrose 5%/0.45% Ns 1000 Ml) 1,000 mls @ 50 mls/hr IV .Q20H [facility] Stop: 11/20/16 19:37 Last Admin: 11/19/16 20:26 Dose: 50 mls/hr Insulin Detemir (Levemir) 6 units SC HS [facility] Last Admin: 11/19/16 21:35 Dose: 6 units Insulin Human Lispro (Humalog) 4 units SC AC [facility] Last Admin: 11/19/16 16:30 Dose: Not Given Lidocaine (Lidoderm) 1 ea TD DAILY [facility] Last Admin: 11/19/16 09:00 Dose: 1 ea Nystatin (Nystop Topical Powder) 1 applic TOP BID [facility] Last Admin: 11/19/16 17:00 Dose: Not Given Ondansetron HCl (Zofran Inj) 4 mg IVP Q6 PRN PRN Reason: Nausea/Vomiting Last Admin: 09/19/16 10:26 Dose: 4 mg Pantoprazole Sodium (Protonix Ec Tab) 40 mg PO DAILY [facility] Last Admin: 11/19/16 09:02 Dose: 40 mg Sevelamer HCl (Renagel) 1,600 mg PO TID [facility] Last Admin: 11/19/16 17:00 Dose: Not Given Topiramate (Topamax) 50 mg PO BID [facility] Last Admin: 11/19/16 17:00 Dose: Not Given Vitamin B Complex/Vit C/Folic Acid (Nephro-Ajay) 1 tab PO DAILY [facility] Last Admin: 11/19/16 09:01 Dose: 1 tab - Labs Labs: 11/19/16 20:45 11/19/16 06:00 PT 17.2 Seconds (9.8-13.1) H 11/19/16 06:00 INR 1.5 (0.9-1.2) H 11/19/16 06:00 APTT 55.8 Seconds (25.6-37.1) H 11/19/16 06:00 Assessment and Plan (1) Diabetes Status: Chronic (2) ESRD (end stage renal disease) Status: Chronic (3) Cellulitis of leg Status: Chronic (4) Hyperlipidemia Status: Chronic (5) Back pain Status: Acute (6) Bacteremia due to Gram-negative bacteria Status: Acute (7) Diabetes mellitus type 2 with peripheral artery disease Status: Acute (8) PVD (peripheral vascular disease) Status: Acute (9) Osteomyelitis of right leg Assessment & Plan: Surgery of debridement is performed. Status: Acute
[2016-11-20] MEDS: Meropenem 500 MG in Sodium Chloride 0.9% 100 ML IVPB SCH (00:10)
[2016-11-20 05:22] LABS: BASO # 0.1 K/uL (0.0-0.2); BASO % 0.8 % (0.0-2.0); EOS # 0.5 K/uL (0.0-0.7); EOS % 5.9 % (0.0-4.0); HEMATOCRIT 33.3 % (34.0-47.0); LYMPH # 1.5 K/uL (1.0-4.3); LYMPH % 16.2 % (20.0-40.0); MEAN CORPUSCULAR HEMOGLOBIN 32.4 pg (27.0-31.0); MEAN CORPUSCULAR HGB CONC 31.5 g/dL (33.0-37.0); MEAN PLATELET VOLUME 9.4 fl (7.2-11.7); MONO # 1.1 K/uL (0.0-0.8); MONO % 11.9 % (0.0-10.0); NEUT # 5.8 K/uL (1.8-7.0); NEUT % 65.2 % (50.0-75.0); RED CELL DISTRIBUTION WIDTH 23.5 % (11.5-14.5)
[2016-11-20 05:24] LABS: MEAN CELL VOLUME 102.6 fl (81.0-99.0)
[2016-11-20 05:34] LABS: ALB/GLOB RATIO 0.8 (1.0-2.1); BILIRUBIN,TOTAL 0.6 mg/dl (0.2-1.3); CALCIUM 9.1 mg/dL (8.4-10.2); TOTAL PROTEIN 7.8 G/DL (6.3-8.2)
--- NOTE | 2016-11-20 07:51 | CP.PCM.PN ---
<Jacques Amado - Last Filed: 11/20/16 07:56> Subjective - Date & Time of Evaluation Date of Evaluation: 11/20/16 Time of Evaluation: 07:49 - Subjective Subjective: Surgery Progress note. Dr. Mccormack Pt seen and examined at bedside. Patient states that her pain is well controlled with the [employer]UT[employer] FIN[employer]. Drank clears last night with no complaints. No N/V/D. No Abd pain. No F/C. No CP/SOB. No New Complaints. Objective - Vital Signs/Intake and Output Vital Signs (last 24 hours): Temp Pulse Resp BP Pulse Ox 98.8 F 109 H 12 158/46 H 99 11/20/16 04:00 11/20/16 06:00 11/20/16 06:00 11/20/16 06:00 11/20/16 06:00 Intake and Output: 11/20/16 11/20/16 06:59 18:59 Intake Total 670 Balance 670 - Medications Medications: Current Medications Acetaminophen (Tylenol 325mg Tab) 650 mg PO Q4 PRN PRN Reason: Fever >100.4 F Last Admin: 10/02/16 16:27 Dose: 650 mg Acetaminophen (Tylenol 325mg Tab) 650 mg PO Q4 PRN PRN Reason: Pain, moderate (4-7) Last Admin: 09/16/16 22:34 Dose: 650 mg Albuterol Sulfate (Albuterol 0.083% Inhal Barbie (2.5 Mg/3 Ml) Ud) 2.5 mg INH RQ4 PRN PRN Reason: Shortness of Breath Albuterol/Ipratropium (Duoneb 3 Mg/0.5 Mg (3 Ml) Ud) 3 ml INH RQ4 PRN PRN Reason: Shortness of Breath Last Admin: 11/11/16 07:39 Dose: 3 ml Aspirin (Ecotrin) 81 mg PO DAILY [facility] Last Admin: 11/16/16 08:35 Dose: 81 mg Atorvastatin Calcium (Lipitor) 40 mg PO DAILY [facility] Last Admin: 11/19/16 09:01 Dose: 40 mg Benzonatate (Tessalon Perles) 200 mg PO TID PRN PRN Reason: Cough Last Admin: 11/16/16 12:41 Dose: 200 mg Calcium Carbonate (Oscal) 500 mg PO BIDWM [facility] Last Admin: 11/19/16 17:00 Dose: Not Given Cinacalcet (Sensipar) 30 mg PO DAILY [facility] Last Admin: 11/19/16 09:02 Dose: 30 mg Collagenase (Santyl) 1 applic TOP DAILY [facility] Last Admin: 11/18/16 15:29 Dose: 1 applic Diphenhydramine HCl (Benadryl) 25 mg PO Q6 PRN PRN Reason: Itching / Pruritus Last Admin: 11/12/16 08:34 Dose: 25 mg Epoetin Tha (Procrit) 20,000 unit IV [facility] Last Admin: 11/18/16 16:43 Dose: 20,000 unit Ergocalciferol (Drisdol 50,000 Intl Units Cap) 1 cap PO WED [facility] Last Admin: 11/13/16 08:42 Dose: 1 cap Fluconazole (Diflucan) 100 mg PO DAILY [facility] Last Admin: 11/19/16 09:00 Dose: 100 mg Gabapentin (Neurontin) 300 mg PO TID [facility] Last Admin: 11/19/16 17:00 Dose: Not Given Hydrocortisone (Anusol-Hc) 1 applic [place] BID PRN PRN Reason: Inflammation Hydromorphone HCl (Dilaudid) 1 mg IVP Q3H PRN PRN Reason: Pain, severe (8-10) Last Admin: 11/20/16 05:22 Dose: 1 mg Hydromorphone HCl (Dilaudid 0.2 Mg/Ml Sugar Laboratory Assistant) 6 mg IV DAILY [facility] PRN Reason: Protocol Stop: 11/20/16 23:59 Last Admin: 11/19/16 18:00 Dose: 0 mg Meropenem 500 mg/ Sodium (Chloride) 100 mls @ 100 mls/hr IVPB DAILY@0100 [facility] Last Admin: 11/20/16 00:10 Dose: 100 mls/hr Gentamicin Sulfate/Sodium Chloride (Gentamicin 100mg/100ml Ns) 100 mg in 100 mls @ 100 mls/hr IVPB MWF [facility] Last Admin: 11/15/16 12:49 Dose: 100 mls/hr Tigecycline 25 mg/ Sodium (Chloride) 100 mls @ 100 mls/hr IVPB Q12 [facility] Last Admin: 11/19/16 21:11 Dose: 100 mls/hr Dextrose/Sodium Chloride (Dextrose 5%/0.45% Ns 1000 Ml) 1,000 mls @ 50 mls/hr IV .Q20H [facility] Last Admin: 11/19/16 01:00 Dose: 50 mls/hr Sodium Chloride (Sodium Chloride 0.9%) 1,000 mls @ 10 mls/hr IV .Q24H [facility] Dextrose/Sodium Chloride (Dextrose 5%/0.45% Ns 1000 Ml) 1,000 mls @ 50 mls/hr IV .Q20H [facility] Stop: 11/20/16 19:37 Last Admin: 11/19/16 20:26 Dose: 50 mls/hr Insulin Detemir (Levemir) 6 units SC HS [facility] Last Admin: 11/19/16 21:35 Dose: 6 units Insulin Human Lispro (Humalog) 4 units SC AC [facility] Last Admin: 11/19/16 16:30 Dose: Not Given Lidocaine (Lidoderm) 1 ea TD DAILY [facility] Last Admin: 11/19/16 09:00 Dose: 1 ea Nystatin (Nystop Topical Powder) 1 applic TOP BID [facility] Last Admin: 11/19/16 17:00 Dose: Not Given Ondansetron HCl (Zofran Inj) 4 mg IVP Q6 PRN PRN Reason: Nausea/Vomiting Last Admin: 09/19/16 10:26 Dose: 4 mg Pantoprazole Sodium (Protonix Ec Tab) 40 mg PO DAILY [facility] Last Admin: 11/19/16 09:02 Dose: 40 mg Sevelamer HCl (Renagel) 1,600 mg PO TID [facility] Last Admin: 11/19/16 17:00 Dose: Not Given Topiramate (Topamax) 50 mg PO BID [facility] Last Admin: 11/19/16 17:00 Dose: Not Given Vitamin B Complex/Vit C/Folic Acid (Nephro-Ajay) 1 tab PO DAILY [facility] Last Admin: 11/19/16 09:01 Dose: 1 tab - Labs Labs: 11/20/16 04:20 11/20/16 04:20 PT 17.2 Seconds (9.8-13.1) H 11/19/16 06:00 INR 1.5 (0.9-1.2) H 11/19/16 06:00 APTT 55.8 Seconds (25.6-37.1) H 11/19/16 06:00 - Constitutional Appears: Well - Head Exam Head Exam: ATRAUMATIC, NORMAL INSPECTION, NORMOCEPHALIC - Eye Exam Eye Exam: EOMI - ENT Exam ENT Exam: Mucous Membranes Moist - Neck Exam Neck Exam: Full ROM - Respiratory Exam Respiratory Exam: NORMAL BREATHING PATTERN - GI/Abdominal Exam GI & Abdominal Exam: Soft. absent: Distended, Guarding, Rigid, Tenderness - Extremities Exam Additional comments: RLE BKA stump: Dressing clean, dry and intact. - Neurological Exam Neurological Exam: Alert, Awake, Oriented x3 - Psychiatric Exam Psychiatric exam: Normal Affect, Normal Mood Assessment and Plan - Assessment and Plan (Free Text) Assessment: 46yo F with PMHx of HTN, ESRD, PVD. General Surgery following s/p Right BKA on . s/p Right BKA Revision and wash-out 11/19. POD1 - 11/02: Wound Cx Right Stump - Multi drug resistant Klebsiella - 11/11: Wound Cx Right Stump - Multi drug resistant Klebsiella - 11/18: Bone scan - positive at right tibial stump. Increased uptake at right patella. - Advance diet as tolerated - Continue medical management - Keep dressing in place for now - IV Abx as per ID - Pain management - Encourage IS use Further recs as per Dr. Easton Amado PGY1 surgery pager: [phone] <Raffy Mccormack - Last Filed: 11/20/16 13:30> Objective - Vital Signs/Intake and Output Vital Signs (last 24 hours): Temp Pulse Resp BP Pulse Ox 97.9 F 112 H 8 L 101/82 100 11/20/16 12:00 11/20/16 12:00 11/20/16 12:00 11/20/16 12:00 11/20/16 12:00 Intake and Output: 11/20/16 11/20/16 06:59 18:59 Intake Total 670 Balance 670 - Medications Medications: Current Medications Acetaminophen (Tylenol 325mg Tab) 650 mg PO Q4 PRN PRN Reason: Fever >100.4 F Last Admin: 10/02/16 16:27 Dose: 650 mg Acetaminophen (Tylenol 325mg Tab) 650 mg PO Q4 PRN PRN Reason: Pain, moderate (4-7) Last Admin: 09/16/16 22:34 Dose: 650 mg Albuterol Sulfate (Albuterol 0.083% Inhal Barbie (2.5 Mg/3 Ml) Ud) 2.5 mg INH RQ4 PRN PRN Reason: Shortness of Breath Albuterol/Ipratropium (Duoneb 3 Mg/0.5 Mg (3 Ml) Ud) 3 ml INH RQ4 PRN PRN Reason: Shortness of Breath Last Admin: 11/11/16 07:39 Dose: 3 ml Aspirin (Ecotrin) 81 mg PO DAILY [facility] Last Admin: 11/16/16 08:35 Dose: 81 mg Atorvastatin Calcium (Lipitor) 40 mg PO DAILY [facility] Last Admin: 11/20/16 08:54 Dose: 40 mg Benzonatate (Tessalon Perles) 200 mg PO TID PRN PRN Reason: Cough Last Admin: 11/20/16 08:55 Dose: 200 mg Calcium Carbonate (Oscal) 500 mg PO BIDWM [facility] Last Admin: 11/20/16 08:56 Dose: 500 mg Cinacalcet (Sensipar) 30 mg PO DAILY [facility] Last Admin: 11/20/16 08:55 Dose: 30 mg Collagenase (Santyl) 1 applic TOP DAILY [facility] Last Admin: 11/18/16 15:29 Dose: 1 applic Diphenhydramine HCl (Benadryl) 25 mg PO Q6 PRN PRN Reason: Itching / Pruritus Last Admin: 11/12/16 08:34 Dose: 25 mg Epoetin Tha (Procrit) 20,000 unit IV MWF [facility] Last Admin: 11/20/16 11:52 Dose: 20,000 unit Ergocalciferol (Drisdol 50,000 Intl Units Cap) 1 cap PO WED [facility] Last Admin: 11/13/16 08:42 Dose: 1 cap Fluconazole (Diflucan) 100 mg PO DAILY [facility] Last Admin: 11/20/16 08:48 Dose: 100 mg Gabapentin (Neurontin) 300 mg PO TID [facility] Last Admin: 11/20/16 08:54 Dose: 300 mg Hydrocortisone (Anusol-Hc) 1 applic ME BID PRN PRN Reason: Inflammation Hydromorphone HCl (Dilaudid) 1 mg IVP Q3H PRN PRN Reason: Pain, severe (8-10) Last Admin: 11/20/16 09:57 Dose: 1 mg Hydromorphone HCl (Dilaudid 0.2 Mg/Ml Sugar Laboratory Assistant) 6 mg IV DAILY [facility] PRN Reason: Protocol Stop: 11/20/16 23:59 Last Admin: 11/19/16 18:00 Dose: 0 mg Meropenem 500 mg/ Sodium (Chloride) 100 mls @ 100 mls/hr IVPB DAILY@0100 [facility] Last Admin: 11/20/16 00:10 Dose: 100 mls/hr Gentamicin Sulfate/Sodium Chloride (Gentamicin 100mg/100ml Ns) 100 mg in 100 mls @ 100 mls/hr IVPB MWF [facility] Last Admin: 11/20/16 09:01 Dose: 100 mls/hr Tigecycline 25 mg/ Sodium (Chloride) 100 mls @ 100 mls/hr IVPB Q12 [facility] Last Admin: 11/20/16 09:02 Dose: 100 mls/hr Dextrose/Sodium Chloride (Dextrose 5%/0.45% Ns 1000 Ml) 1,000 mls @ 50 mls/hr IV .Q20H [facility] Last Admin: 11/19/16 01:00 Dose: 50 mls/hr Sodium Chloride (Sodium Chloride 0.9%) 1,000 mls @ 10 mls/hr IV .Q24H [facility] Dextrose/Sodium Chloride (Dextrose 5%/0.45% Ns 1000 Ml) 1,000 mls @ 50 mls/hr IV .Q20H [facility] Stop: 11/20/16 19:37 Last Admin: 11/19/16 20:26 Dose: 50 mls/hr Insulin Detemir (Levemir) 6 units SC HS [facility] Last Admin: 11/19/16 21:35 Dose: 6 units Insulin Human Lispro (Humalog) 4 units SC AC [facility] Last Admin: 11/20/16 08:30 Dose: 4 units Lidocaine (Lidoderm) 1 ea TD DAILY [facility] Last Admin: 11/20/16 08:52 Dose: 1 ea Nystatin (Nystop Topical Powder) 1 applic TOP BID [facility] Last Admin: 11/19/16 17:00 Dose: Not Given Ondansetron HCl (Zofran Inj) 4 mg IVP Q6 PRN PRN Reason: Nausea/Vomiting Last Admin: 09/19/16 10:26 Dose: 4 mg Pantoprazole Sodium (Protonix Ec Tab) 40 mg PO DAILY [facility] Last Admin: 11/20/16 08:55 Dose: 40 mg Sevelamer HCl (Renagel) 1,600 mg PO TID [facility] Last Admin: 11/20/16 08:54 Dose: 1,600 mg Topiramate (Topamax) 50 mg PO BID [facility] Last Admin: 11/20/16 08:55 Dose: 50 mg Vitamin B Complex/Vit C/Folic Acid (Nephro-Ajay) 1 tab PO DAILY [facility] Last Admin: 11/19/16 09:01 Dose: 1 tab - Labs Labs: 11/20/16 04:20 11/20/16 04:20 PT 17.2 Seconds (9.8-13.1) H 11/19/16 06:00 INR 1.5 (0.9-1.2) H 11/19/16 06:00 APTT 55.8 Seconds (25.6-37.1) H 11/19/16 06:00 Assessment and Plan - Assessment and Plan (Free Text) Plan: Patient seen and examined. She remained stable overnight. Patient has no immediate acute complaints at this moment. Her pain is fairly well controlled although there is significant break-through pain at times. Review of systems and physical exam are overall benign. Right BKA dressing is clean, dry and intact. Patient has been off systemic anticoagulation. I will plan to examine the wound tomorrow. I recommend holding off systemic anticoagulation before the wound is examined due to the risk of bleeding.
[2016-11-20] MEDS: Insulin Lispro (humaLOG) 100 Units/ml Inj SC SCH ×3 (08:30→16:30)
[2016-11-20] MEDS: Lidocaine 5% Patch TD SCH (08:52)
[2016-11-20] MEDS: Pantoprazole 40 mg EC Tab PO SCH (08:55)
[2016-11-20] MEDS: Gentamicin 100mg/100ml NS 100 MG/100 ML BAG IVPB SCH ×2 (08:59→09:01)
[2016-11-20] MEDS: TIGECYCLINE IVPB SCH ×2 (09:02→20:10)
[2016-11-20] MEDS: SODIUM CHLORIDE 0.9% IVPB SCH ×2 (09:02→20:10)
[2016-11-20] MEDS: Ergocalciferol 50,000 Intl Units Cap PO SCH (10:00)
[2016-11-20] MEDS: Multivitamin Vitamin B Complex (Nephro-Vite) Tab PO SCH (10:00)
--- NOTE | 2016-11-20 11:03 | CP.PCM.PN ---
Subjective - Date & Time of Evaluation Date of Evaluation: 11/20/16 Time of Evaluation: 11:00 - Subjective Subjective: She was seen on hemodialysis now Discussed with the nurse Vital signs stable however she is tachycardic pulse rate about 110 now Patient sleeping because she was given pain medication Objective - Vital Signs/Intake and Output Vital Signs (last 24 hours): Temp Pulse Resp BP Pulse Ox 97.5 F L 109 H 18 105/42 L 100 11/20/16 08:00 11/20/16 08:00 11/20/16 08:00 11/20/16 08:00 11/20/16 08:00 Intake and Output: 11/20/16 11/20/16 06:59 18:59 Intake Total 670 Balance 670 - Medications Medications: Current Medications Acetaminophen (Tylenol 325mg Tab) 650 mg PO Q4 PRN PRN Reason: Fever >100.4 F Last Admin: 10/02/16 16:27 Dose: 650 mg Acetaminophen (Tylenol 325mg Tab) 650 mg PO Q4 PRN PRN Reason: Pain, moderate (4-7) Last Admin: 09/16/16 22:34 Dose: 650 mg Albuterol Sulfate (Albuterol 0.083% Inhal Barbie (2.5 Mg/3 Ml) Ud) 2.5 mg INH RQ4 PRN PRN Reason: Shortness of Breath Albuterol/Ipratropium (Duoneb 3 Mg/0.5 Mg (3 Ml) Ud) 3 ml INH RQ4 PRN PRN Reason: Shortness of Breath Last Admin: 11/11/16 07:39 Dose: 3 ml Aspirin (Ecotrin) 81 mg PO DAILY [facility] Last Admin: 11/16/16 08:35 Dose: 81 mg Atorvastatin Calcium (Lipitor) 40 mg PO DAILY [facility] Last Admin: 11/20/16 08:54 Dose: 40 mg Benzonatate (Tessalon Perles) 200 mg PO TID PRN PRN Reason: Cough Last Admin: 11/20/16 08:55 Dose: 200 mg Calcium Carbonate (Oscal) 500 mg PO BIDWM [facility] Last Admin: 11/20/16 08:56 Dose: 500 mg Cinacalcet (Sensipar) 30 mg PO DAILY [facility] Last Admin: 11/20/16 08:55 Dose: 30 mg Collagenase (Santyl) 1 applic TOP DAILY [facility] Last Admin: 11/18/16 15:29 Dose: 1 applic Diphenhydramine HCl (Benadryl) 25 mg PO Q6 PRN PRN Reason: Itching / Pruritus Last Admin: 11/12/16 08:34 Dose: 25 mg Epoetin Tha (Procrit) 20,000 unit IV [facility] [place] Last Admin: 11/18/16 16:43 Dose: 20,000 unit Ergocalciferol (Drisdol 50,000 Intl Units Cap) 1 cap PO WED [facility] Last Admin: 11/13/16 08:42 Dose: 1 cap Fluconazole (Diflucan) 100 mg PO DAILY [facility] Last Admin: 11/20/16 08:48 Dose: 100 mg Gabapentin (Neurontin) 300 mg PO TID [facility] Last Admin: 11/20/16 08:54 Dose: 300 mg Hydrocortisone (Anusol-Hc) 1 applic [place] BID PRN PRN Reason: Inflammation Hydromorphone HCl (Dilaudid) 1 mg IVP Q3H PRN PRN Reason: Pain, severe (8-10) Last Admin: 11/20/16 09:57 Dose: 1 mg Hydromorphone HCl (Dilaudid 0.2 Mg/Ml Component Lab Tech) 6 mg IV DAILY [facility] PRN Reason: Protocol Stop: 11/20/16 23:59 Last Admin: 11/19/16 18:00 Dose: 0 mg Meropenem 500 mg/ Sodium (Chloride) 100 mls @ 100 mls/hr IVPB DAILY@0100 [facility] Last Admin: 11/20/16 00:10 Dose: 100 mls/hr Gentamicin Sulfate/Sodium Chloride (Gentamicin 100mg/100ml Ns) 100 mg in 100 mls @ 100 mls/hr [facility] Last Admin: 11/20/16 09:01 Dose: 100 mls/hr Tigecycline 25 mg/ Sodium (Chloride) 100 mls @ 100 mls/hr IVPB Q12 [facility] Last Admin: 11/20/16 09:02 Dose: 100 mls/hr Dextrose/Sodium Chloride (Dextrose 5%/0.45% Ns 1000 Ml) 1,000 mls @ 50 mls/hr IV .Q20H [facility] Last Admin: 11/19/16 01:00 Dose: 50 mls/hr Sodium Chloride (Sodium Chloride 0.9%) 1,000 mls @ 10 mls/hr IV .Q24H [facility] Dextrose/Sodium Chloride (Dextrose 5%/0.45% Ns 1000 Ml) 1,000 mls @ 50 mls/hr IV .Q20H [facility] Stop: 11/20/16 19:37 Last Admin: 11/19/16 20:26 Dose: 50 mls/hr Insulin Detemir (Levemir) 6 units SC HS [facility] Last Admin: 11/19/16 21:35 Dose: 6 units Insulin Human Lispro (Humalog) 4 units SC AC [facility] Last Admin: 11/20/16 08:30 Dose: 4 units Lidocaine (Lidoderm) 1 ea TD DAILY [facility] Last Admin: 11/20/16 08:52 Dose: 1 ea Nystatin (Nystop Topical Powder) 1 applic TOP BID [facility] Last Admin: 11/19/16 17:00 Dose: Not Given Ondansetron HCl (Zofran Inj) 4 mg IVP Q6 PRN PRN Reason: Nausea/Vomiting Last Admin: 09/19/16 10:26 Dose: 4 mg Pantoprazole Sodium (Protonix Ec Tab) 40 mg PO DAILY [facility] Last Admin: 11/20/16 08:55 Dose: 40 mg Sevelamer HCl (Renagel) 1,600 mg PO TID [facility] Last Admin: 11/20/16 08:54 Dose: 1,600 mg Topiramate (Topamax) 50 mg PO BID [facility] Last Admin: 11/20/16 08:55 Dose: 50 mg Vitamin B Complex/Vit C/Folic Acid (Nephro-Ajay) 1 tab PO DAILY [facility] Last Admin: 11/19/16 09:01 Dose: 1 tab - Labs Labs: 11/20/16 04:20 11/20/16 04:20 PT 17.2 Seconds (9.8-13.1) H 11/19/16 06:00 INR 1.5 (0.9-1.2) H 11/19/16 06:00 APTT 55.8 Seconds (25.6-37.1) H 11/19/16 06:00 - Constitutional Appears: No Acute Distress - ENT Exam ENT Exam: Mucous Membranes Moist - Respiratory Exam Respiratory Exam: absent: Chest Wall Tenderness - Cardiovascular Exam Cardiovascular Exam: absent: Rubs - GI/Abdominal Exam GI & Abdominal Exam: Soft, Normal Bowel Sounds - Extremities Exam Extremities Exam: absent: Calf Tenderness - Back Exam Back Exam: absent: CVA tenderness (L), CVA tenderness (R) Assessment and Plan (1) ESRD (end stage renal disease) Assessment & Plan: Status post debridement yesterday of the right stump End stage renal disease is receiving hemodialysis now with ultrafiltration not to exceed 3000 mL Potassium high 6.0 predialysis to repeat potassium tomorrow or later she is on potassium bath 2 mEq now Status: Chronic (2) Cellulitis of leg Status: Chronic
[2016-11-20] MEDS: Epoetin Alfa 20000 UNIT/ML Inj IV SCH (11:52)
--- NOTE | 2016-11-20 14:05 | PCM.OP ---
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 Due to her multiple and severe comorbidities healing process was prolonged and complicated. Unfortunately, patient developed infection of her right BKA stump - including soft tissues as well as evidence of distal tibia osteomyelitis on the bone scan. She was recommended washout, debridement and possible revision of the right BKA. Benefits and risks of surgery were explained to he patient with emphasis on possble wound non-healing, infection and need for further procedures including conversion to the above knee amputation. Operative Findings: There was significant amount of ischemic and necrotic looking soft tissue on the lateral aspect of the right BKA. Distal tibial did not look frankly affected with osteomyelitis clinically - there was no pus or purulence around it and it was well incorporated with surrounding tissues. Procedure/Operation Description: Right BKA was marked as a correct surgical site prior to coming to the OR. In the OR, surgical signout was completed with confirming patient's identity and correct surgical site and procedure which were right BKA washout, debridement and revision. General anesthesia was applied and right BKA was prepped snd draped in sterile fashion. Next, I used electrocautery to mobilize posterior flap of the BKA and examined the wound. There was no krystal pus observed, but on the lateral aspect of the BKA there was significant amount of ischemic non-viable adipose, facial and muscle tissue. Sharp debridement was done and non-viable tissue was removed aggressively to the perfused tissue. Next, distal 2cm of the tibia were dissected free - the bone didn't look grossly infected or destroyed by infectious process. There was no pus or purulence around the bone either. To facilitate amputation closure and reduce the risk of osteomyelitis, given bone scan findings, I shortened the tibia by 1.5 cm usung electric saw. The bone surface was oozing well and required placement of bone wax and surgicell around it. Next, wound was copiously irrigated using 2 L of normal saline pulse lavage with Bacitracin. Additional amount of non-viable tissue was removed sharply. Skin edges were refreshed sharply with removal of adjacent eschar. The wound bed did not have frankly necrotic non-viable tissue and it was oozing diffusely. At this point hemostasis was enforced using cautery and direct pressure. Three interrupted 0 Vicryl stitched were used to approximate soft tissues and cover tibia. Next, interrupted nylon vertical mattress sutures were used to approximate posterior flap to the anterior surface of the BKA -- it was reaching nicely without tension. Another liter of pulse lavage irrigation was used and packing material was inserted along entire incision line between the mattress sutures. The field was hemostatic. Sterile dressing was placed and patient was extubated. She was transferred to PACU in the satisfactory condition. Estimated Blood Loss: 75cc Blood Replaced: No Sponge/Instrument Count: Correct Drains: NOne Complications: None Specimen: right tibia and right BKA soft tissue for culture Discharge & Condition: satisfactory
--- NOTE | 2016-11-20 14:33 | CP.PCM.PN ---
Subjective - Date & Time of Evaluation Date of Evaluation: 11/20/16 Time of Evaluation: 14:25 - Subjective Subjective: S/P Revision of right BKA by Dr. Mccormack yesterday because of infection. As per his operative report, while there was soft tissue necrosis, there was no pus and the bone did not appear to be involved. He removed 1.5 cm of distal tibia to encompass the area of bone noted to be abnormal on the nuclear scan. Bone and soft tissues were sent for culture. He advised holding off on Eliquis and aspirin until he has had a chance to examine the surgical wound tomorrow to check for hemostasis. All reports of a glucose of 500 should be disregarded as this was determined on blood taken from the PICC line with an IV D5W/0.45% saline drip. The correct glucoses (around 90-100 range) were obtained from the arm stick. Patient continues on IV tigacycline, meropenem, daptomycin, and gentamicin as well as po fluconazole. (Although Daptomycin was dropped by the [employer] program and had to be reordered by me today.) She is on topiramate for previous seizure which occurred during sepsis months ago. Dr. Maguire has indicated that this should be continued. I have discontinued the [employer] as the 0.2mg of Dilaudid every 30 minutes was quite useless and had to be supplemented with the 1 mg of iv Dilaudid every 3 hours prn. I will write the order for 1 mg q2h prn severe pain to give the nurse flexibility in pain management. Dr. Ambrose is managing her diabetes mellitus with short and long acting insulin. Objective - Vital Signs/Intake and Output Vital Signs (last 24 hours): Temp Pulse Resp BP Pulse Ox 97.9 F 112 H 8 L 101/82 100 11/20/16 12:00 11/20/16 12:00 11/20/16 12:00 11/20/16 12:00 11/20/16 12:00 Intake and Output: 11/20/16 11/20/16 06:59 18:59 Intake Total 670 Balance 670 - Medications Medications: Current Medications Acetaminophen (Tylenol 325mg Tab) 650 mg PO Q4 PRN PRN Reason: Fever >100.4 F Last Admin: 10/02/16 16:27 Dose: 650 mg Acetaminophen (Tylenol 325mg Tab) 650 mg PO Q4 PRN PRN Reason: Pain, moderate (4-7) Last Admin: 09/16/16 22:34 Dose: 650 mg Albuterol Sulfate (Albuterol 0.083% Inhal Barbie (2.5 Mg/3 Ml) Ud) 2.5 mg INH RQ4 PRN PRN Reason: Shortness of Breath Albuterol/Ipratropium (Duoneb 3 Mg/0.5 Mg (3 Ml) Ud) 3 ml INH RQ4 PRN PRN Reason: Shortness of Breath Last Admin: 11/11/16 07:39 Dose: 3 ml Aspirin (Ecotrin) 81 mg PO DAILY [facility] Last Admin: 11/16/16 08:35 Dose: 81 mg Atorvastatin Calcium (Lipitor) 40 mg PO DAILY [facility] Last Admin: 11/20/16 08:54 Dose: 40 mg Benzonatate (Tessalon Perles) 200 mg PO TID PRN PRN Reason: Cough Last Admin: 11/20/16 08:55 Dose: 200 mg Calcium Carbonate (Oscal) 500 mg PO BIDWM [facility] Last Admin: 11/20/16 08:56 Dose: 500 mg Cinacalcet (Sensipar) 30 mg PO DAILY [facility] Last Admin: 11/20/16 08:55 Dose: 30 mg Collagenase (Santyl) 1 applic TOP DAILY [facility] Last Admin: 11/18/16 15:29 Dose: 1 applic Diphenhydramine HCl (Benadryl) 25 mg PO Q6 PRN PRN Reason: Itching / Pruritus Last Admin: 11/12/16 08:34 Dose: 25 mg Epoetin Tha (Procrit) 20,000 unit IV MWF [facility] Last Admin: 11/20/16 11:52 Dose: 20,000 unit Ergocalciferol (Drisdol 50,000 Intl Units Cap) 1 cap PO WED [facility] Last Admin: 11/13/16 08:42 Dose: 1 cap Fluconazole (Diflucan) 100 mg PO DAILY [facility] Last Admin: 11/20/16 08:48 Dose: 100 mg Gabapentin (Neurontin) 300 mg PO TID [facility] Last Admin: 11/20/16 08:54 Dose: 300 mg Hydrocortisone (Anusol-Hc) 1 applic OR BID PRN PRN Reason: Inflammation Hydromorphone HCl (Dilaudid) 1 mg IVP Q3H PRN PRN Reason: Pain, severe (8-10) Last Admin: 11/20/16 09:57 Dose: 1 mg Hydromorphone HCl (Dilaudid 0.2 Mg/Ml [employer]) 6 mg IV DAILY [facility] PRN Reason: Protocol Stop: 11/20/16 23:59 Last Admin: 11/19/16 18:00 Dose: 0 mg Meropenem 500 mg/ Sodium (Chloride) 100 mls @ 100 mls/hr IVPB DAILY@0100 [facility] Last Admin: 11/20/16 00:10 Dose: 100 mls/hr Gentamicin Sulfate/Sodium Chloride (Gentamicin 100mg/100ml Ns) 100 mg in 100 mls @ 100 mls/hr IVPB MWF [facility] Last Admin: 11/20/16 09:01 Dose: 100 mls/hr Tigecycline 25 mg/ Sodium (Chloride) 100 mls @ 100 mls/hr IVPB Q12 [facility] Last Admin: 11/20/16 09:02 Dose: 100 mls/hr Dextrose/Sodium Chloride (Dextrose 5%/0.45% Ns 1000 Ml) 1,000 mls @ 50 mls/hr IV .Q20H [facility] Last Admin: 11/19/16 01:00 Dose: 50 mls/hr Sodium Chloride (Sodium Chloride 0.9%) 1,000 mls @ 10 mls/hr IV .Q24H [facility] Dextrose/Sodium Chloride (Dextrose 5%/0.45% Ns 1000 Ml) 1,000 mls @ 50 mls/hr IV .Q20H [facility] Stop: 11/20/16 19:37 Last Admin: 11/19/16 20:26 Dose: 50 mls/hr Insulin Detemir (Levemir) 6 units SC HS [facility] Last Admin: 11/19/16 21:35 Dose: 6 units Insulin Human Lispro (Humalog) 4 units SC AC [facility] Last Admin: 11/20/16 08:30 Dose: 4 units Lidocaine (Lidoderm) 1 ea TD DAILY [facility] Last Admin: 11/20/16 08:52 Dose: 1 ea Nystatin (Nystop Topical Powder) 1 applic TOP BID [facility] Last Admin: 11/19/16 17:00 Dose: Not Given Ondansetron HCl (Zofran Inj) 4 mg IVP Q6 PRN PRN Reason: Nausea/Vomiting Last Admin: 09/19/16 10:26 Dose: 4 mg Pantoprazole Sodium (Protonix Ec Tab) 40 mg PO DAILY [facility] Last Admin: 11/20/16 08:55 Dose: 40 mg Sevelamer HCl (Renagel) 1,600 mg PO TID [facility] Last Admin: 11/20/16 08:54 Dose: 1,600 mg Topiramate (Topamax) 50 mg PO BID [facility] Last Admin: 11/20/16 08:55 Dose: 50 mg Vitamin B Complex/Vit C/Folic Acid (Nephro-Ajay) 1 tab PO DAILY [facility] Last Admin: 11/19/16 09:01 Dose: 1 tab - Labs Labs: 11/20/16 04:20 11/20/16 04:20 PT 17.2 Seconds (9.8-13.1) H 11/19/16 06:00 INR 1.5 (0.9-1.2) H 11/19/16 06:00 APTT 55.8 Seconds (25.6-37.1) H 11/19/16 06:[address] Guadarrama, the potassium of 6.0 was a pre-dialysis number. Blood culture from 11/19/16 is negative so far. Tissues and bone cultures from OR on 11/19/16 are not noted on [employer], but our laboratory says they were received and sent to [facility] microbiology lab. - Head Exam Head Exam: NORMAL INSPECTION - ENT Exam ENT Exam: Mucous Membranes Moist - Neck Exam Additional comments: R subclavian Permacath intact. - Respiratory Exam Respiratory Exam: Clear to Ausculation Bilateral, NORMAL BREATHING PATTERN - Cardiovascular Exam Cardiovascular Exam: REGULAR RHYTHM, +S1, +S2 - GI/Abdominal Exam GI & Abdominal Exam: Soft - Extremities Exam Additional comments: Right BK dressing is dry and intact. L femoral vein PICC line is intact. - Neurological Exam Neurological Exam: Alert, Awake, CN II-XII Intact, Oriented x3 - Psychiatric Exam Psychiatric exam: Normal Affect, Normal Mood - Skin Skin Exam: Normal Color, Warm Assessment and Plan (1) Status post below knee amputation of right lower extremity Assessment & Plan: SEE SUBJECTIVE Status: Acute (2) ESRD (end stage renal disease) on dialysis Assessment & Plan: SEE SUBJECTIVE Status: Chronic (3) DM type 2 (diabetes mellitus, type 2) Assessment & Plan: SEE SUBJECTIVE Status: Chronic (4) Coagulopathy Assessment & Plan: SEE SUBJECTIVE Status: Chronic (5) Peripheral arterial occlusive disease Status: Chronic
[2016-11-20] MEDS ORDERED: Albumin Human 5% (12.5 gm/250 ml) IV ONE (15:50)
[2016-11-20] MEDS: HYDROmorphone 0.5 mg/0.5 ml ISec IVP PRN (20:39)
[2016-11-20] MEDS: Insulin Detemir 100 Units/ml Inj SC SCH (22:00)
[2016-11-21] MEDS: Meropenem 500 MG in Sodium Chloride 0.9% 100 ML IVPB SCH (00:37)
--- NOTE | 2016-11-21 00:39 | CP.PCM.PN ---
Subjective - Date & Time of Evaluation Date of Evaluation: 11/20/16 Time of Evaluation: 20:35 - Subjective Subjective: Patient is suffering from pain after her surgery of cleaning and and debridement of her right BKA in the Right BKA. She was found not to have any bone infection or involvement. Only the soft tissues are involved. She is not in distress. There is no seizures. She is on Topamax 50 mg BID and on Vitamin D and Oscal. She is receiving her Hemodialysis as scheduled on ,,. Objective - Vital Signs/Intake and Output Vital Signs (last 24 hours): Temp Pulse Resp BP Pulse Ox 98.2 F 106 H 16 86/66 L 100 11/20/16 20:00 11/20/16 22:00 11/20/16 22:00 11/20/16 22:00 11/20/16 22:00 Intake and Output: 11/20/16 11/21/16 18:59 06:59 Intake Total 140 Balance 140 - Medications Medications: Current Medications Acetaminophen (Tylenol 325mg Tab) 650 mg PO Q4 PRN PRN Reason: Fever >100.4 F Last Admin: 10/02/16 16:27 Dose: 650 mg Acetaminophen (Tylenol 325mg Tab) 650 mg PO Q4 PRN PRN Reason: Pain, moderate (4-7) Last Admin: 09/16/16 22:34 Dose: 650 mg Albuterol Sulfate (Albuterol 0.083% Inhal Barbie (2.5 Mg/3 Ml) Ud) 2.5 mg INH RQ4 PRN PRN Reason: Shortness of Breath Albuterol/Ipratropium (Duoneb 3 Mg/0.5 Mg (3 Ml) Ud) 3 ml INH RQ4 PRN PRN Reason: Shortness of Breath Last Admin: 11/11/16 07:39 Dose: 3 ml Aspirin (Ecotrin) 81 mg PO DAILY [facility] Last Admin: 11/16/16 08:35 Dose: 81 mg Atorvastatin Calcium (Lipitor) 40 mg PO DAILY [facility] Last Admin: 11/20/16 08:54 Dose: 40 mg Benzonatate (Tessalon Perles) 200 mg PO TID PRN PRN Reason: Cough Last Admin: 11/20/16 08:55 Dose: 200 mg Calcium Carbonate (Oscal) 500 mg PO BIDWM [facility] Last Admin: 11/20/16 18:59 Dose: Not Given Cinacalcet (Sensipar) 30 mg PO DAILY [facility] Last Admin: 11/20/16 08:55 Dose: 30 mg Collagenase (Santyl) 1 applic TOP DAILY [facility] Last Admin: 11/18/16 15:29 Dose: 1 applic Diphenhydramine HCl (Benadryl) 25 mg PO Q6 PRN PRN Reason: Itching / Pruritus Last Admin: 11/12/16 08:34 Dose: 25 mg Epoetin Tha (Procrit) 20,000 unit IV [facility] Last Admin: 11/20/16 11:52 Dose: 20,000 unit Ergocalciferol (Drisdol 50,000 Intl Units Cap) 1 cap PO WED [facility] Last Admin: 11/20/16 10:00 Dose: 1 cap Fluconazole (Diflucan) 100 mg PO DAILY [facility] Last Admin: 11/20/16 08:48 Dose: 100 mg Gabapentin (Neurontin) 300 mg PO TID [facility] Last Admin: 11/20/16 18:58 Dose: Not Given Hydrocortisone (Anusol-Hc) 1 applic GA BID PRN PRN Reason: Inflammation Hydromorphone HCl (Dilaudid) 1 mg IVP Q2H PRN PRN Reason: Pain, severe (8-10) Last Admin: 11/20/16 20:39 Dose: 1 mg Meropenem 500 mg/ Sodium (Chloride) 100 mls @ 100 mls/hr IVPB DAILY@0100 [facility] Last Admin: 11/20/16 00:10 Dose: 100 mls/hr Gentamicin Sulfate/Sodium Chloride (Gentamicin 100mg/100ml Ns) 100 mg in 100 mls @ 100 mls/hr IVPB [facility] Last Admin: 11/20/16 09:01 Dose: 100 mls/hr Tigecycline 25 mg/ Sodium (Chloride) 100 mls @ 100 mls/hr IVPB Q12 [facility] Last Admin: 11/20/16 20:10 Dose: 100 mls/hr Sodium Chloride (Sodium Chloride 0.9%) 1,000 mls @ 10 mls/hr IV .Q24H [facility] Daptomycin 650 mg/ Sodium (Chloride) 100 mls @ 100 mls/hr IVPB [facility] Stop: 12/16/16 09:59 Last Admin: 11/20/16 16:00 Dose: 100 mls/hr Sodium Chloride (Sodium Chloride 0.45%) 500 mls @ 10 mls/hr IV .Q24H [facility] Last Admin: 11/20/16 15:00 Dose: 10 mls/hr Insulin Detemir (Levemir) 6 units SC HS [facility] Last Admin: 11/19/16 21:35 Dose: 6 units Insulin Human Lispro (Humalog) 4 units SC AC [facility] Last Admin: 11/20/16 16:30 Dose: Not Given Lidocaine (Lidoderm) 1 ea TD DAILY [facility] Last Admin: 11/20/16 08:52 Dose: 1 ea Nystatin (Nystop Topical Powder) 1 applic TOP BID [facility] Last Admin: 11/20/16 18:59 Dose: Not Given Ondansetron HCl (Zofran Inj) 4 mg IVP Q6 PRN PRN Reason: Nausea/Vomiting Last Admin: 09/19/16 10:26 Dose: 4 mg Pantoprazole Sodium (Protonix Ec Tab) 40 mg PO DAILY [facility] Last Admin: 11/20/16 08:55 Dose: 40 mg Sevelamer HCl (Renagel) 1,600 mg PO TID [facility] Last Admin: 11/20/16 18:59 Dose: Not Given Topiramate (Topamax) 50 mg PO BID [facility] Last Admin: 11/20/16 19:01 Dose: 50 mg Vitamin B Complex/Vit C/Folic Acid (Nephro-Ajay) 1 tab PO DAILY [facility] Last Admin: 11/20/16 10:00 Dose: Not Given - Labs Labs: 11/20/16 04:20 11/20/16 04:20 PT 17.2 Seconds (9.8-13.1) H 11/19/16 06:00 INR 1.5 (0.9-1.2) H 11/19/16 06:00 APTT 55.8 Seconds (25.6-37.1) H 11/19/16 06:00 Assessment and Plan (1) Diabetes Status: Chronic (2) ESRD (end stage renal disease) Status: Chronic (3) Cellulitis of leg Status: Chronic (4) Hyperlipidemia Status: Chronic (5) Back pain Status: Acute (6) Bacteremia due to Gram-negative bacteria Status: Acute (7) Diabetes mellitus type 2 with peripheral artery disease Status: Acute (8) PVD (peripheral vascular disease) Status: Acute (9) Osteomyelitis of right leg Status: Acute
[2016-11-21] MEDS: HYDROmorphone 0.5 mg/0.5 ml ISec IVP PRN ×2 (01:36→08:07)
[2016-11-21] MEDS: Insulin Lispro (humaLOG) 100 Units/ml Inj SC SCH ×3 (07:30→16:14)
[2016-11-21 08:26] LABS: HEMATOCRIT 30.9 % (34.0-47.0); MEAN CELL VOLUME 100.5 fl (81.0-99.0); MEAN CORPUSCULAR HEMOGLOBIN 32.1 pg (27.0-31.0); RED CELL DISTRIBUTION WIDTH 22.8 % (11.5-14.5); WHITE BLOOD COUNT 10.8 K/uL (4.8-10.8)
[2016-11-21 08:39] LABS: CALCIUM 8.7 mg/dL (8.4-10.2); POTASSIUM 5.1 MMOL/L (3.6-5.0)
[2016-11-21] MEDS: Multivitamin Vitamin B Complex (Nephro-Vite) Tab PO SCH (09:06)
[2016-11-21] MEDS: Pantoprazole 40 mg EC Tab PO SCH (09:06)
[2016-11-21] MEDS: Lidocaine 5% Patch TD SCH (09:07)
[2016-11-21] MEDS: TIGECYCLINE IVPB SCH ×2 (09:14→21:03)
[2016-11-21] MEDS: SODIUM CHLORIDE 0.9% IVPB SCH ×2 (09:14→21:03)
--- NOTE | 2016-11-21 09:55 | CP.PCM.PN ---
<[place] - Last Filed: 11/21/16 09:52> Subjective - Date & Time of Evaluation Date of Evaluation: 11/21/16 Time of Evaluation: 09:52 - Subjective Subjective: Surgery for Dr. Mccormack Pt s&e. Pt had low grade fever of 100.5. Denies N/V/D/CP/SOB. Pain copntrolled. Had HD yesterday. Resting comfortably and no complaints. Tolerating diet. Objective - Vital Signs/Intake and Output Vital Signs (last 24 hours): Temp Pulse Resp BP Pulse Ox 98.4 F 107 H 20 125/59 L 96 11/21/16 08:00 11/21/16 08:00 11/21/16 08:00 11/21/16 08:00 11/21/16 08:00 Intake and Output: 11/21/16 11/21/16 06:59 18:59 Intake Total 160 Balance 160 - Medications Medications: Current Medications Acetaminophen (Tylenol 325mg Tab) 650 mg PO Q4 PRN PRN Reason: Fever >100.4 F Last Admin: 11/21/16 00:44 Dose: 650 mg Acetaminophen (Tylenol 325mg Tab) 650 mg PO Q4 PRN PRN Reason: Pain, moderate (4-7) Last Admin: 09/16/16 22:34 Dose: 650 mg Albuterol Sulfate (Albuterol 0.083% Inhal Barbie (2.5 Mg/3 Ml) Ud) 2.5 mg INH RQ4 PRN PRN Reason: Shortness of Breath Albuterol/Ipratropium (Duoneb 3 Mg/0.5 Mg (3 Ml) Ud) 3 ml INH RQ4 PRN PRN Reason: Shortness of Breath Last Admin: 11/11/16 07:39 Dose: 3 ml Aspirin (Ecotrin) 81 mg PO DAILY [facility] Last Admin: 11/16/16 08:35 Dose: 81 mg Atorvastatin Calcium (Lipitor) 40 mg PO DAILY [facility] Last Admin: 11/21/16 09:05 Dose: 40 mg Benzonatate (Tessalon Perles) 200 mg PO TID PRN PRN Reason: Cough Last Admin: 11/21/16 09:06 Dose: 200 mg Calcium Carbonate (Oscal) 500 mg PO BIDWM [facility] Last Admin: 11/21/16 09:06 Dose: 500 mg Cinacalcet (Sensipar) 30 mg PO DAILY [facility] Last Admin: 11/21/16 09:05 Dose: 30 mg Collagenase (Santyl) 1 applic TOP DAILY [facility] Last Admin: 11/18/16 15:29 Dose: 1 applic Diphenhydramine HCl (Benadryl) 25 mg PO Q6 PRN PRN Reason: Itching / Pruritus Last Admin: 11/12/16 08:34 Dose: 25 mg Epoetin Tha (Procrit) 20,000 unit IV [facility] Last Admin: 11/20/16 11:52 Dose: 20,000 unit Ergocalciferol (Drisdol 50,000 Intl Units Cap) 1 cap PO WED [facility] Last Admin: 11/20/16 10:00 Dose: 1 cap Fluconazole (Diflucan) 100 mg PO DAILY [facility] Last Admin: 11/21/16 09:06 Dose: 100 mg Gabapentin (Neurontin) 300 mg PO TID [facility] Last Admin: 11/21/16 09:05 Dose: 300 mg Hydrocortisone (Anusol-Hc) 1 applic MD BID PRN PRN Reason: Inflammation Hydromorphone HCl (Dilaudid) 1 mg IVP Q2H PRN PRN Reason: Pain, severe (8-10) Meropenem 500 mg/ Sodium (Chloride) 100 mls @ 100 mls/hr IVPB DAILY@0100 [facility] Last Admin: 11/21/16 00:37 Dose: 100 mls/hr Gentamicin Sulfate/Sodium Chloride (Gentamicin 100mg/100ml Ns) 100 mg in 100 mls @ 100 mls/hr IVPB [facility] Last Admin: 11/20/16 09:01 Dose: 100 mls/hr Tigecycline 25 mg/ Sodium (Chloride) 100 mls @ 100 mls/hr IVPB Q12 [facility] Last Admin: 11/21/16 09:14 Dose: 100 mls/hr Sodium Chloride (Sodium Chloride 0.9%) 1,000 mls @ 10 mls/hr IV .Q24H [facility] Daptomycin 650 mg/ Sodium (Chloride) 100 mls @ 100 mls/hr IVPB [facility] Stop: 12/16/16 09:59 Last Admin: 11/20/16 16:00 Dose: 100 mls/hr Sodium Chloride (Sodium Chloride 0.45%) 500 mls @ 10 mls/hr IV .Q24H [facility] Last Admin: 11/20/16 15:00 Dose: 10 mls/hr Insulin Detemir (Levemir) 6 units SC HS [facility] Last Admin: 11/20/16 22:00 Dose: 6 units Insulin Human Lispro (Humalog) 4 units SC AC [facility] Last Admin: 11/21/16 07:30 Dose: 4 units Lidocaine (Lidoderm) 1 ea TD DAILY [facility] Last Admin: 11/21/16 09:07 Dose: Not Given Nystatin (Nystop Topical Powder) 1 applic TOP BID [facility] Last Admin: 11/21/16 09:13 Dose: Not Given Ondansetron HCl (Zofran Inj) 4 mg IVP Q6 PRN PRN Reason: Nausea/Vomiting Last Admin: 09/19/16 10:26 Dose: 4 mg Pantoprazole Sodium (Protonix Ec Tab) 40 mg PO DAILY [facility] Last Admin: 11/21/16 09:06 Dose: 40 mg Sevelamer HCl (Renagel) 1,600 mg PO TID [facility] Last Admin: 11/21/16 09:05 Dose: 1,600 mg Topiramate (Topamax) 50 mg PO BID [facility] Last Admin: 11/21/16 09:05 Dose: 50 mg Vitamin B Complex/Vit C/Folic Acid (Nephro-Ajay) 1 tab PO DAILY [facility] Last Admin: 11/21/16 09:06 Dose: 1 tab - Labs Labs: 11/21/16 08:20 11/21/16 08:20 PT 17.2 Seconds (9.8-13.1) H 11/19/16 06:00 INR 1.5 (0.9-1.2) H 11/19/16 06:00 APTT 55.8 Seconds (25.6-37.1) H 11/19/16 06:00 - Constitutional Appears: No Acute Distress - Head Exam Head Exam: ATRAUMATIC, NORMAL INSPECTION, NORMOCEPHALIC - Eye Exam Eye Exam: EOMI, Normal appearance, PERRL Pupil Exam: NORMAL ACCOMODATION, PERRL - ENT Exam ENT Exam: Mucous Membranes Moist, Normal Exam - Neck Exam Neck Exam: Full ROM, Normal Inspection. absent: Lymphadenopathy - Respiratory Exam Respiratory Exam: Clear to Ausculation Bilateral, NORMAL BREATHING PATTERN - Cardiovascular Exam Cardiovascular Exam: REGULAR RHYTHM, +S1, +S2. absent: Murmur - GI/Abdominal Exam GI & Abdominal Exam: Soft, Normal Bowel Sounds. absent: Distended, Firm, Guarding, Rigid, Tenderness - Exam Exam: NORMAL INSPECTION - Extremities Exam Additional comments: b/l BKA. R pippa wrap C/D/I. Mild TTP - Back Exam Back Exam: NORMAL INSPECTION - Neurological Exam Neurological Exam: Alert, Awake, CN II-XII Intact, Oriented x3 - Psychiatric Exam Psychiatric exam: Normal Affect, Normal Mood - Skin Skin Exam: Dry, Intact, Warm Assessment and Plan - Assessment and Plan (Free Text) Assessment: 46yo F with PMHx of HTN, ESRD, PVD. General Surgery following s/p Right BKA on . s/p Right BKA Revision and wash-out 11/19. POD2 - 11/02: Wound Cx Right Stump - Multi drug resistant Klebsiella - 11/11: Wound Cx Right Stump - Multi drug resistant Klebsiella - 11/18: Bone scan - positive at right tibial stump. Increased uptake at right patella. - Continue renal diet - Continue medical management - Will change dressing w attending today - Hold off anticoagulation until wound examination later today - IV Abx as per ID - Pain management - Encourage IS use - PT -Ok to transfer out of ICU Further recs as per Dr. Mccormack <Raffy Mccormack - Last Filed: 11/21/16 16:31> Objective - Vital Signs/Intake and Output Vital Signs (last 24 hours): Temp Pulse Resp BP Pulse Ox 98.7 F 111 H 18 132/79 94 L 11/21/16 16:00 11/21/16 16:00 11/21/16 16:00 11/21/16 13:36 11/21/16 16:00 Intake and Output: 11/21/16 11/21/16 06:59 18:59 Intake Total 160 Balance 160 - Medications Medications: Current Medications Acetaminophen (Tylenol 325mg Tab) 650 mg PO Q4 PRN PRN Reason: Fever >100.4 F Last Admin: 11/21/16 00:44 Dose: 650 mg Acetaminophen (Tylenol 325mg Tab) 650 mg PO Q4 PRN PRN Reason: Pain, moderate (4-7) Last Admin: 09/16/16 22:34 Dose: 650 mg Albuterol Sulfate (Albuterol 0.083% Inhal Barbie (2.5 Mg/3 Ml) Ud) 2.5 mg INH RQ4 PRN PRN Reason: Shortness of Breath Albuterol/Ipratropium (Duoneb 3 Mg/0.5 Mg (3 Ml) Ud) 3 ml INH RQ4 PRN PRN Reason: Shortness of Breath Last Admin: 11/11/16 07:39 Dose: 3 ml Aspirin (Ecotrin) 81 mg PO DAILY [facility] Last Admin: 11/16/16 08:35 Dose: 81 mg Atorvastatin Calcium (Lipitor) 40 mg PO DAILY [facility] Last Admin: 11/21/16 09:05 Dose: 40 mg Benzonatate (Tessalon Perles) 200 mg PO TID PRN PRN Reason: Cough Last Admin: 11/21/16 09:06 Dose: 200 mg Calcium Carbonate (Oscal) 500 mg PO BIDWM [facility] Last Admin: 11/21/16 16:16 Dose: 500 mg Cinacalcet (Sensipar) 30 mg PO DAILY [facility] Last Admin: 11/21/16 09:05 Dose: 30 mg Collagenase (Santyl) 1 applic TOP DAILY [facility] Last Admin: 11/18/16 15:29 Dose: 1 applic Diphenhydramine HCl (Benadryl) 25 mg PO Q6 PRN PRN Reason: Itching / Pruritus Last Admin: 11/12/16 08:34 Dose: 25 mg Epoetin Tha (Procrit) 20,000 unit IV MWF [facility] Last Admin: 11/20/16 11:52 Dose: 20,000 unit Ergocalciferol (Drisdol 50,000 Intl Units Cap) 1 cap PO WED [facility] Last Admin: 11/20/16 10:00 Dose: 1 cap Fluconazole (Diflucan) 100 mg PO DAILY [facility] Last Admin: 11/21/16 09:06 Dose: 100 mg Gabapentin (Neurontin) 300 mg PO TID [facility] Last Admin: 11/21/16 16:15 Dose: 300 mg Hydrocortisone (Anusol-Hc) 1 applic MD BID PRN PRN Reason: Inflammation Hydromorphone HCl (Dilaudid) 1 mg IVP Q2H PRN PRN Reason: Pain, severe (8-10) Last Admin: 11/21/16 16:10 Dose: 1 mg Meropenem 500 mg/ Sodium (Chloride) 100 mls @ 100 mls/hr IVPB DAILY@0100 [facility] Last Admin: 11/21/16 00:37 Dose: 100 mls/hr Gentamicin Sulfate/Sodium Chloride (Gentamicin 100mg/100ml Ns) 100 mg in 100 mls @ 100 mls/hr IVPB [facility] Last Admin: 11/20/16 09:01 Dose: 100 mls/hr Tigecycline 25 mg/ Sodium (Chloride) 100 mls @ 100 mls/hr IVPB Q12 [facility] Last Admin: 11/21/16 09:14 Dose: 100 mls/hr Sodium Chloride (Sodium Chloride 0.9%) 1,000 mls @ 10 mls/hr IV .Q24H [facility] Daptomycin 650 mg/ Sodium (Chloride) 100 mls @ 100 mls/hr IVPB [facility] Stop: 12/16/16 09:59 Last Admin: 11/20/16 16:00 Dose: 100 mls/hr Sodium Chloride (Sodium Chloride 0.45%) 500 mls @ 10 mls/hr IV .Q24H [facility] Last Admin: 11/21/16 16:16 Dose: 10 mls/hr Insulin Detemir (Levemir) 6 units SC HS [facility] Last Admin: 11/20/16 22:00 Dose: 6 units Insulin Human Lispro (Humalog) 4 units SC AC [facility] Last Admin: 11/21/16 16:14 Dose: Not Given Lidocaine (Lidoderm) 1 ea TD DAILY [facility] Last Admin: 11/21/16 09:07 Dose: Not Given Nystatin (Nystop Topical Powder) 1 applic TOP BID [facility] Last Admin: 11/21/16 16:15 Dose: Not Given Ondansetron HCl (Zofran Inj) 4 mg IVP Q6 PRN PRN Reason: Nausea/Vomiting Last Admin: 09/19/16 10:26 Dose: 4 mg Pantoprazole Sodium (Protonix Ec Tab) 40 mg PO DAILY [facility] Last Admin: 11/21/16 09:06 Dose: 40 mg Sevelamer HCl (Renagel) 1,600 mg PO TID [facility] Last Admin: 11/21/16 13:11 Dose: 1,600 mg Topiramate (Topamax) 50 mg PO BID [facility] Last Admin: 11/21/16 09:05 Dose: 50 mg Vitamin B Complex/Vit C/Folic Acid (Nephro-Ajay) 1 tab PO DAILY [facility] Last Admin: 11/21/16 09:06 Dose: 1 tab - Labs Labs: 11/21/16 08:20 11/21/16 08:20 PT 17.2 Seconds (9.8-13.1) H 11/19/16 06:00 INR 1.5 (0.9-1.2) H 11/19/16 06:00 APTT 55.8 Seconds (25.6-37.1) H 11/19/16 06:00 Assessment and Plan - Assessment and Plan (Free Text) Plan: Patient seen and examined. Overall, she remained clinically and hemodynamically stable overnight and today. There was febrile episode earlier - patient is afebrile now. Review of systems and physical exam are overall benign. Patient has no immediate acute complaints. Right BKA site was examined. There is no bleeding, hematoma, krystal pus or purulence or tissue necrosis. Wound was packed between the vertical mattress sutures. Continue current care. Continue antibiotics. Will change the dressing again tomorrow and evaluate the wound.
--- NOTE | 2016-11-21 10:12 | CP.PCM.PN ---
Subjective - Date & Time of Evaluation Date of Evaluation: 11/21/16 Time of Evaluation: 10:08 - Subjective Subjective: No significant changes reported Patient is about the same with multiple problem as noted previously Status post second surgery on the right stump 2 days ago Vital signs stable Patient scheduled for hemodialysis for tomorrow and MWF No seizures reported Patient receiving 5 antibiotics as per infectious disease and primary team Objective - Vital Signs/Intake and Output Vital Signs (last 24 hours): Temp Pulse Resp BP Pulse Ox 98.4 F 107 H 20 125/59 L 96 11/21/16 08:00 11/21/16 08:00 11/21/16 08:00 11/21/16 08:00 11/21/16 08:00 Intake and Output: 11/21/16 11/21/16 06:59 18:59 Intake Total 160 Balance 160 - Medications Medications: Current Medications Acetaminophen (Tylenol 325mg Tab) 650 mg PO Q4 PRN PRN Reason: Fever >100.4 F Last Admin: 11/21/16 00:44 Dose: 650 mg Acetaminophen (Tylenol 325mg Tab) 650 mg PO Q4 PRN PRN Reason: Pain, moderate (4-7) Last Admin: 09/16/16 22:34 Dose: 650 mg Albuterol Sulfate (Albuterol 0.083% Inhal Barbie (2.5 Mg/3 Ml) Ud) 2.5 mg INH RQ4 PRN PRN Reason: Shortness of Breath Albuterol/Ipratropium (Duoneb 3 Mg/0.5 Mg (3 Ml) Ud) 3 ml INH RQ4 PRN PRN Reason: Shortness of Breath Last Admin: 11/11/16 07:39 Dose: 3 ml Aspirin (Ecotrin) 81 mg PO DAILY [facility] Last Admin: 11/16/16 08:35 Dose: 81 mg Atorvastatin Calcium (Lipitor) 40 mg PO DAILY [facility] Last Admin: 11/21/16 09:05 Dose: 40 mg Benzonatate (Tessalon Perles) 200 mg PO TID PRN PRN Reason: Cough Last Admin: 11/21/16 09:06 Dose: 200 mg Calcium Carbonate (Oscal) 500 mg PO BIDWM [facility] Last Admin: 11/21/16 09:06 Dose: 500 mg Cinacalcet (Sensipar) 30 mg PO DAILY [facility] Last Admin: 11/21/16 09:05 Dose: 30 mg Collagenase (Santyl) 1 applic TOP DAILY [facility] Last Admin: 11/18/16 15:29 Dose: 1 applic Diphenhydramine HCl (Benadryl) 25 mg PO Q6 PRN PRN Reason: Itching / Pruritus Last Admin: 11/12/16 08:34 Dose: 25 mg Epoetin Tha (Procrit) 20,000 unit IV [facility] Last Admin: 11/20/16 11:52 Dose: 20,000 unit Ergocalciferol (Drisdol 50,000 Intl Units Cap) 1 cap PO WED [facility] Last Admin: 11/20/16 10:00 Dose: 1 cap Fluconazole (Diflucan) 100 mg PO DAILY [facility] Last Admin: 11/21/16 09:06 Dose: 100 mg Gabapentin (Neurontin) 300 mg PO TID [facility] Last Admin: 11/21/16 09:05 Dose: 300 mg Hydrocortisone (Anusol-Hc) 1 applic [place] BID PRN PRN Reason: Inflammation Hydromorphone HCl (Dilaudid) 1 mg IVP Q2H PRN PRN Reason: Pain, severe (8-10) Meropenem 500 mg/ Sodium (Chloride) 100 mls @ 100 mls/hr IVPB DAILY@0100 [facility] Last Admin: 11/21/16 00:37 Dose: 100 mls/hr Gentamicin Sulfate/Sodium Chloride (Gentamicin 100mg/100ml Ns) 100 mg in 100 mls @ 100 mls/hr IVPB [facility] Last Admin: 11/20/16 09:01 Dose: 100 mls/hr Tigecycline 25 mg/ Sodium (Chloride) 100 mls @ 100 mls/hr IVPB Q12 [facility] Last Admin: 11/21/16 09:14 Dose: 100 mls/hr Sodium Chloride (Sodium Chloride 0.9%) 1,000 mls @ 10 mls/hr IV .Q24H [facility] Daptomycin 650 mg/ Sodium (Chloride) 100 mls @ 100 mls/hr IVPB [facility] Stop: 12/16/16 09:59 Last Admin: 11/20/16 16:00 Dose: 100 mls/hr Sodium Chloride (Sodium Chloride 0.45%) 500 mls @ 10 mls/hr IV .Q24H [facility] Last Admin: 11/20/16 15:00 Dose: 10 mls/hr Insulin Detemir (Levemir) 6 units SC HS [facility] Last Admin: 11/20/16 22:00 Dose: 6 units Insulin Human Lispro (Humalog) 4 units SC AC [facility] Last Admin: 11/21/16 07:30 Dose: 4 units Lidocaine (Lidoderm) 1 ea TD DAILY [facility] Last Admin: 11/21/16 09:07 Dose: Not Given Nystatin (Nystop Topical Powder) 1 applic TOP BID [facility] Last Admin: 11/21/16 09:13 Dose: Not Given Ondansetron HCl (Zofran Inj) 4 mg IVP Q6 PRN PRN Reason: Nausea/Vomiting Last Admin: 09/19/16 10:26 Dose: 4 mg Pantoprazole Sodium (Protonix Ec Tab) 40 mg PO DAILY [facility] Last Admin: 11/21/16 09:06 Dose: 40 mg Sevelamer HCl (Renagel) 1,600 mg PO TID [facility] Last Admin: 11/21/16 09:05 Dose: 1,600 mg Topiramate (Topamax) 50 mg PO BID [facility] Last Admin: 11/21/16 09:05 Dose: 50 mg Vitamin B Complex/Vit C/Folic Acid (Nephro-Ajay) 1 tab PO DAILY [facility] Last Admin: 11/21/16 09:06 Dose: 1 tab - Labs Labs: 11/21/16 08:20 11/21/16 08:20 PT 17.2 Seconds (9.8-13.1) H 11/19/16 06:00 INR 1.5 (0.9-1.2) H 11/19/16 06:00 APTT 55.8 Seconds (25.6-37.1) H 11/19/16 06:00 Assessment and Plan (1) ESRD (end stage renal disease) Status: Chronic (2) Cellulitis of leg Status: Chronic
--- NOTE | 2016-11-21 15:48 | CP.PCM.PN ---
Subjective - Date & Time of Evaluation Date of Evaluation: 11/21/16 Time of Evaluation: 15:46 - Subjective Subjective: Day # 1 post revision of right BK amputation site. Wound evaluation done by Dr. Mccormack. He also informed me that additional information on nuclear bone scan shows uptake in right patella. Patient was advised and assured that we will do everying to try to save the BK status of the right leg. I will restart Eliquis and aspirin now to assure good circulation to that surgical site. Patient may start physical therapy with passive ROM to lower extremities and active physical therapy to upper extremities and trunk. She should get out esvin to wheelchair via [place] lift daily. I spoke with Dr. Lam, pathologist. She said she never received a specimen of distal tibial bone from the OR and thought it might have gone to [facility] for culture. She said she would contact [facility] lab to try to track down the specim - if possible... So far the tissue cultures are negative. Patient continues on IV daptomycin, tigacycline, meropenem, and gentamicin and po fluconazole. Patient is still in ICU. She had a brief episode of hypotension earlier. This is not unusual for her, especially with hemodialysis. Also readings are hard to get because of vascular disease. She is OK now and awaits transfer to a regular floor. One episode of fever just past midnight with forehead temp of 100.5. But, she has remained afebrile since then. DM controlled as per Dr. Ambrose's orders. Objective - Vital Signs/Intake and Output Vital Signs (last 24 hours): Temp Pulse Resp BP Pulse Ox 98.5 F 113 H 20 132/79 96 11/21/16 13:36 11/21/16 13:36 11/21/16 13:36 11/21/16 13:36 11/21/16 13:36 Intake and Output: 11/21/16 11/21/16 06:59 18:59 Intake Total 160 Balance 160 - Medications Medications: Current Medications Acetaminophen (Tylenol 325mg Tab) 650 mg PO Q4 PRN PRN Reason: Fever >100.4 F Last Admin: 11/21/16 00:44 Dose: 650 mg Acetaminophen (Tylenol 325mg Tab) 650 mg PO Q4 PRN PRN Reason: Pain, moderate (4-7) Last Admin: 05/08/17 22:34 Dose: 650 mg Albuterol Sulfate (Albuterol 0.083% Inhal Barbie (2.5 Mg/3 Ml) Ud) 2.5 mg INH RQ4 PRN PRN Reason: Shortness of Breath Albuterol/Ipratropium (Duoneb 3 Mg/0.5 Mg (3 Ml) Ud) 3 ml INH RQ4 PRN PRN Reason: Shortness of Breath Last Admin: 11/11/16 07:39 Dose: 3 ml Aspirin (Ecotrin) 81 mg PO DAILY [facility] Last Admin: 11/16/16 08:35 Dose: 81 mg Atorvastatin Calcium (Lipitor) 40 mg PO DAILY [facility] Last Admin: 11/21/16 09:05 Dose: 40 mg Benzonatate (Tessalon Perles) 200 mg PO TID PRN PRN Reason: Cough Last Admin: 11/21/16 09:06 Dose: 200 mg Calcium Carbonate (Oscal) 500 mg PO BIDWM [facility] Last Admin: 11/21/16 09:06 Dose: 500 mg Cinacalcet (Sensipar) 30 mg PO DAILY [facility] Last Admin: 11/21/16 09:05 Dose: 30 mg Collagenase (Santyl) 1 applic TOP DAILY [facility] Last Admin: 11/18/16 15:29 Dose: 1 applic Diphenhydramine HCl (Benadryl) 25 mg PO Q6 PRN PRN Reason: Itching / Pruritus Last Admin: 11/12/16 08:34 Dose: 25 mg Epoetin Tha (Procrit) 20,000 unit IV MWF [facility] Last Admin: 11/20/16 11:52 Dose: 20,000 unit Ergocalciferol (Drisdol 50,000 Intl Units Cap) 1 cap PO WED [facility] Last Admin: 11/20/16 10:00 Dose: 1 cap Fluconazole (Diflucan) 100 mg PO DAILY [facility] Last Admin: 11/21/16 09:06 Dose: 100 mg Gabapentin (Neurontin) 300 mg PO TID [facility] Last Admin: 11/21/16 13:11 Dose: 300 mg Hydrocortisone (Anusol-Hc) 1 applic [place] BID PRN PRN Reason: Inflammation Hydromorphone HCl (Dilaudid) 1 mg IVP Q2H PRN PRN Reason: Pain, severe (8-10) Last Admin: 11/21/16 13:13 Dose: 1 mg Meropenem 500 mg/ Sodium (Chloride) 100 mls @ 100 mls/hr IVPB DAILY@0100 [facility] Last Admin: 11/21/16 00:37 Dose: 100 mls/hr Gentamicin Sulfate/Sodium Chloride (Gentamicin 100mg/100ml Ns) 100 mg in 100 mls @ 100 mls/hr IVPB [facility] Last Admin: 11/20/16 09:01 Dose: 100 mls/hr Tigecycline 25 mg/ Sodium (Chloride) 100 mls @ 100 mls/hr IVPB Q12 [facility] Last Admin: 11/21/16 09:14 Dose: 100 mls/hr Sodium Chloride (Sodium Chloride 0.9%) 1,000 mls @ 10 mls/hr IV .Q24H [facility] Daptomycin 650 mg/ Sodium (Chloride) 100 mls @ 100 mls/hr IVPB [facility] Stop: 12/16/16 09:59 Last Admin: 11/20/16 16:00 Dose: 100 mls/hr Sodium Chloride (Sodium Chloride 0.45%) 500 mls @ 10 mls/hr IV .Q24H [facility] Last Admin: 11/20/16 15:00 Dose: 10 mls/hr Insulin Detemir (Levemir) 6 units SC HS [facility] Last Admin: 11/20/16 22:00 Dose: 6 units Insulin Human Lispro (Humalog) 4 units SC AC [facility] Last Admin: 11/21/16 12:00 Dose: Not Given Lidocaine (Lidoderm) 1 ea TD DAILY [facility] Last Admin: 11/21/16 09:07 Dose: Not Given Nystatin (Nystop Topical Powder) 1 applic TOP BID [facility] Last Admin: 11/21/16 09:13 Dose: Not Given Ondansetron HCl (Zofran Inj) 4 mg IVP Q6 PRN PRN Reason: Nausea/Vomiting Last Admin: 09/19/16 10:26 Dose: 4 mg Pantoprazole Sodium (Protonix Ec Tab) 40 mg PO DAILY [facility] Last Admin: 11/21/16 09:06 Dose: 40 mg Sevelamer HCl (Renagel) 1,600 mg PO TID [facility] Last Admin: 11/21/16 13:11 Dose: 1,600 mg Topiramate (Topamax) 50 mg PO BID [facility] Last Admin: 11/21/16 09:05 Dose: 50 mg Vitamin B Complex/Vit C/Folic Acid (Nephro-Ajay) 1 tab PO DAILY [facility] Last Admin: 11/21/16 09:06 Dose: 1 tab - Labs Labs: 11/21/16 08:20 11/21/16 08:20 PT 17.2 Seconds (9.8-13.1) H 11/19/16 06:00 INR 1.5 (0.9-1.2) H 11/19/16 06:00 APTT 55.8 Seconds (25.6-37.1) H 11/19/16 06:00 - Constitutional Appears: No Acute Distress - Head Exam Head Exam: NORMAL INSPECTION - ENT Exam ENT Exam: Mucous Membranes Moist - Neck Exam Neck Exam: Normal Inspection - Respiratory Exam Respiratory Exam: Clear to Ausculation Bilateral - Cardiovascular Exam Cardiovascular Exam: REGULAR RHYTHM, +S1, +S2 - GI/Abdominal Exam GI & Abdominal Exam: Soft - Extremities Exam Additional comments: Right BK surgical site has mattress sutures loosely placed to allow for gauze packing to permit drainage and healing. There is no pus or odor. There has been scan serosanguinous drainage. The right patella was left with eschar in place and will continue to have redressing per Dr. Mccormack. The other extremities are as before. The left femoral PICC line is intact and working well. - Neurological Exam Neurological Exam: Alert, Awake, CN II-XII Intact, Oriented x3 - Psychiatric Exam Psychiatric exam: Anxious Assessment and Plan (1) Status post below knee amputation of right lower extremity Assessment & Plan: SEE SUBJECTIVE Status: Acute (2) ESRD (end stage renal disease) on dialysis Assessment & Plan: SEE SUBJECTIVE Status: Chronic (3) DM type 2 (diabetes mellitus, type 2) Assessment & Plan: SEE SUBJECTIVE Status: Chronic (4) Coagulopathy Assessment & Plan: SEE SUBJECTIVE Status: Chronic (5) Peripheral arterial occlusive disease Status: Chronic
[2016-11-21] MEDS ORDERED: Iodoform 1/4inx15ft BOT EXT ONE ×2 (16:00→16:08)
--- NOTE | 2016-11-21 22:18 | CP.PCM.PN ---
Subjective - Date & Time of Evaluation Date of Evaluation: 11/21/16 Time of Evaluation: 19:35 - Subjective Subjective: Abnormal results of her culture wound from Right BKA stump showing 2 positive cultures for Gram Negative Rods. Attempts are made to save her BKA status in order to avoid inability to stand or walk using Prothesis and artificial limb. Patient is receiving Antibiotics and her Routine Hemodialysis for her enal Failure. She is running a low grade fever 100.5 F. There is no reported Seizures. She is on Po Topamax 50 mg BID. She is on Po Vitamin D, Oscal and on Sensipar. Objective - Vital Signs/Intake and Output Vital Signs (last 24 hours): Temp Pulse Resp BP Pulse Ox 98.9 F 112 H 18 104/52 L 95 11/21/16 22:10 11/21/16 22:10 11/21/16 22:10 11/21/16 22:10 11/21/16 22:10 Intake and Output: 11/21/16 11/22/16 18:59 06:59 Intake Total 160 Balance 160 - Medications Medications: Current Medications Acetaminophen (Tylenol 325mg Tab) 650 mg PO Q4 PRN PRN Reason: Fever >100.4 F Last Admin: 11/21/16 00:44 Dose: 650 mg Acetaminophen (Tylenol 325mg Tab) 650 mg PO Q4 PRN PRN Reason: Pain, moderate (4-7) Last Admin: 09/16/16 22:34 Dose: 650 mg Albuterol Sulfate (Albuterol 0.083% Inhal Barbie (2.5 Mg/3 Ml) Ud) 2.5 mg INH RQ4 PRN PRN Reason: Shortness of Breath Albuterol/Ipratropium (Duoneb 3 Mg/0.5 Mg (3 Ml) Ud) 3 ml INH RQ4 PRN PRN Reason: Shortness of Breath Last Admin: 11/11/16 07:39 Dose: 3 ml Apixaban (Eliquis) 5 mg PO BID [facility] PRN Reason: Protocol Last Admin: 11/21/16 17:23 Dose: 5 mg Aspirin (Ecotrin) 81 mg PO DAILY [facility] Last Admin: 11/16/16 08:35 Dose: 81 mg Atorvastatin Calcium (Lipitor) 40 mg PO DAILY [facility] Last Admin: 11/21/16 09:05 Dose: 40 mg Benzonatate (Tessalon Perles) 200 mg PO TID PRN PRN Reason: Cough Last Admin: 11/21/16 09:06 Dose: 200 mg Calcium Carbonate (Oscal) 500 mg PO BIDWM [facility] Last Admin: 11/21/16 16:16 Dose: 500 mg Cinacalcet (Sensipar) 30 mg PO DAILY [facility] Last Admin: 11/21/16 09:05 Dose: 30 mg Collagenase (Santyl) 1 applic TOP DAILY [facility] Last Admin: 11/18/16 15:29 Dose: 1 applic Diphenhydramine HCl (Benadryl) 25 mg PO Q6 PRN PRN Reason: Itching / Pruritus Last Admin: 11/12/16 08:34 Dose: 25 mg Epoetin Tha (Procrit) 20,000 unit IV [facility] Last Admin: 11/20/16 11:52 Dose: 20,000 unit Ergocalciferol (Drisdol 50,000 Intl Units Cap) 1 cap PO WED [facility] Last Admin: 11/20/16 10:00 Dose: 1 cap Fluconazole (Diflucan) 100 mg PO DAILY [facility] Last Admin: 11/21/16 09:06 Dose: 100 mg Gabapentin (Neurontin) 300 mg PO TID [facility] Last Admin: 11/21/16 16:15 Dose: 300 mg Hydrocortisone (Anusol-Hc) 1 applic [place] BID PRN PRN Reason: Inflammation Hydromorphone HCl (Dilaudid) 1 mg IVP Q2H PRN PRN Reason: Pain, severe (8-10) Last Admin: 11/21/16 19:23 Dose: 1 mg Meropenem 500 mg/ Sodium (Chloride) 100 mls @ 100 mls/hr IVPB DAILY@0100 [facility] Last Admin: 11/21/16 00:37 Dose: 100 mls/hr Gentamicin Sulfate/Sodium Chloride (Gentamicin 100mg/100ml Ns) 100 mg in 100 mls @ 100 mls/hr IVPB MWF [facility] Last Admin: 11/20/16 09:01 Dose: 100 mls/hr Tigecycline 25 mg/ Sodium (Chloride) 100 mls @ 100 mls/hr IVPB Q12 [facility] Last Admin: 11/21/16 21:03 Dose: 100 mls/hr Sodium Chloride (Sodium Chloride 0.9%) 1,000 mls @ 10 mls/hr IV .Q24H [facility] Daptomycin 650 mg/ Sodium (Chloride) 100 mls @ 100 mls/hr IVPB MWF [facility] Stop: 12/16/16 09:59 Last Admin: 11/20/16 16:00 Dose: 100 mls/hr Sodium Chloride (Sodium Chloride 0.45%) 500 mls @ 10 mls/hr IV .Q24H [facility] Last Admin: 11/21/16 16:16 Dose: 10 mls/hr Insulin Detemir (Levemir) 6 units SC HS [facility] Last Admin: 11/20/16 22:00 Dose: 6 units Insulin Human Lispro (Humalog) 4 units SC AC [facility] Last Admin: 11/21/16 16:14 Dose: Not Given Lidocaine (Lidoderm) 1 ea TD DAILY [facility] Last Admin: 11/21/16 09:07 Dose: Not Given Nystatin (Nystop Topical Powder) 1 applic TOP BID [facility] Last Admin: 11/21/16 16:15 Dose: Not Given Ondansetron HCl (Zofran Inj) 4 mg IVP Q6 PRN PRN Reason: Nausea/Vomiting Last Admin: 09/19/16 10:26 Dose: 4 mg Pantoprazole Sodium (Protonix Ec Tab) 40 mg PO DAILY [facility] Last Admin: 11/21/16 09:06 Dose: 40 mg Sevelamer HCl (Renagel) 1,600 mg PO TID [facility] Last Admin: 11/21/16 17:23 Dose: 1,600 mg Topiramate (Topamax) 50 mg PO BID [facility] Last Admin: 11/21/16 17:23 Dose: 50 mg Vitamin B Complex/Vit C/Folic Acid (Nephro-Ajay) 1 tab PO DAILY [facility] Last Admin: 11/21/16 09:06 Dose: 1 tab - Labs Labs: 11/21/16 08:20 11/21/16 08:20 PT 17.2 Seconds (9.8-13.1) H 11/19/16 06:00 INR 1.5 (0.9-1.2) H 11/19/16 06:00 APTT 55.8 Seconds (25.6-37.1) H 11/19/16 06:00 Assessment and Plan (1) Diabetes Status: Chronic (2) ESRD (end stage renal disease) Status: Chronic (3) Cellulitis of leg Status: Chronic (4) Hyperlipidemia Status: Chronic (5) Back pain Status: Acute (6) Bacteremia due to Gram-negative bacteria Status: Acute (7) Diabetes mellitus type 2 with peripheral artery disease Status: Acute (8) PVD (peripheral vascular disease) Status: Acute (9) Osteomyelitis of right leg Status: Acute
[2016-11-21] MEDS: Insulin Detemir 100 Units/ml Inj SC SCH (22:22)
[2016-11-22] MEDS: Meropenem 500 MG in Sodium Chloride 0.9% 100 ML IVPB SCH (00:21)
--- NOTE | 2016-11-22 07:51 | CP.PCM.PN ---
<Librado Grovessergio - Last Filed: 11/22/16 07:48> Subjective - Date & Time of Evaluation Date of Evaluation: 11/22/16 Time of Evaluation: 07:48 - Subjective Subjective: Surgery for Dr. Mccormack Pt s&eJoe NOLAN. Dressing and packing changed yesterday. Pt tolerated it well. Tolerating diet. +BM. On HD. Pain controlled. Denies F/C/N/V/D/CP/SOB. Pt is transfered to Med surg floor Objective - Vital Signs/Intake and Output Vital Signs (last 24 hours): Temp Pulse Resp BP Pulse Ox 98.4 F 107 H 18 114/51 L 100 11/22/16 07:38 11/22/16 07:38 11/22/16 07:38 11/22/16 07:38 11/22/16 07:38 Intake and Output: 11/22/16 11/22/16 06:59 18:59 Intake Total 160 Balance 160 - Medications Medications: Current Medications Acetaminophen (Tylenol 325mg Tab) 650 mg PO Q4 PRN PRN Reason: Fever >100.4 F Last Admin: 11/21/16 00:44 Dose: 650 mg Acetaminophen (Tylenol 325mg Tab) 650 mg PO Q4 PRN PRN Reason: Pain, moderate (4-7) Last Admin: 09/16/16 22:34 Dose: 650 mg Albuterol Sulfate (Albuterol 0.083% Inhal Barbie (2.5 Mg/3 Ml) Ud) 2.5 mg INH RQ4 PRN PRN Reason: Shortness of Breath Albuterol/Ipratropium (Duoneb 3 Mg/0.5 Mg (3 Ml) Ud) 3 ml INH RQ4 PRN PRN Reason: Shortness of Breath Last Admin: 11/11/16 07:39 Dose: 3 ml Apixaban (Eliquis) 5 mg PO BID JASPER PRN Reason: Protocol Last Admin: 11/21/16 17:23 Dose: 5 mg Aspirin (Ecotrin) 81 mg PO DAILY [facility] Last Admin: 11/16/16 08:35 Dose: 81 mg Atorvastatin Calcium (Lipitor) 40 mg PO DAILY [facility] Last Admin: 11/21/16 09:05 Dose: 40 mg Benzonatate (Tessalon Perles) 200 mg PO TID PRN PRN Reason: Cough Last Admin: 11/21/16 09:06 Dose: 200 mg Calcium Carbonate (Oscal) 500 mg PO BIDWM [facility] Last Admin: 11/21/16 16:16 Dose: 500 mg Cinacalcet (Sensipar) 30 mg PO DAILY [facility] Last Admin: 11/21/16 09:05 Dose: 30 mg Collagenase (Santyl) 1 applic TOP DAILY [facility] Last Admin: 11/18/16 15:29 Dose: 1 applic Diphenhydramine HCl (Benadryl) 25 mg PO Q6 PRN PRN Reason: Itching / Pruritus Last Admin: 11/12/16 08:34 Dose: 25 mg Epoetin Tha (Procrit) 20,000 unit IV MWF [facility] Last Admin: 11/20/16 11:52 Dose: 20,000 unit Ergocalciferol (Drisdol 50,000 Intl Units Cap) 1 cap PO WED [facility] Last Admin: 11/20/16 10:00 Dose: 1 cap Fluconazole (Diflucan) 100 mg PO DAILY [facility] Last Admin: 11/21/16 09:06 Dose: 100 mg Gabapentin (Neurontin) 300 mg PO TID [facility] Last Admin: 11/21/16 16:15 Dose: 300 mg Hydrocortisone (Anusol-Hc) 1 applic [place] BID PRN PRN Reason: Inflammation Hydromorphone HCl (Dilaudid) 1 mg IVP Q2H PRN PRN Reason: Pain, severe (8-10) Last Admin: 11/22/16 04:06 Dose: 1 mg Meropenem 500 mg/ Sodium (Chloride) 100 mls @ 100 mls/hr IVPB DAILY@0100 [facility] Last Admin: 11/22/16 00:21 Dose: 100 mls/hr Gentamicin Sulfate/Sodium Chloride (Gentamicin 100mg/100ml Ns) 100 mg in 100 mls @ 100 mls/hr IVPB MWF [facility] Last Admin: 11/20/16 09:01 Dose: 100 mls/hr Tigecycline 25 mg/ Sodium (Chloride) 100 mls @ 100 mls/hr IVPB Q12 [facility] Last Admin: 11/21/16 21:03 Dose: 100 mls/hr Sodium Chloride (Sodium Chloride 0.9%) 1,000 mls @ 10 mls/hr IV .Q24H [facility] Daptomycin 650 mg/ Sodium (Chloride) 100 mls @ 100 mls/hr IVPB MWF [facility] Stop: 12/16/16 09:59 Last Admin: 11/20/16 16:00 Dose: 100 mls/hr Sodium Chloride (Sodium Chloride 0.45%) 500 mls @ 10 mls/hr IV .Q24H [facility] Last Admin: 11/21/16 16:16 Dose: 10 mls/hr Insulin Detemir (Levemir) 6 units SC HS [facility] Last Admin: 11/21/16 22:22 Dose: 6 units Insulin Human Lispro (Humalog) 4 units SC AC [facility] Last Admin: 11/21/16 16:14 Dose: Not Given Lidocaine (Lidoderm) 1 ea TD DAILY [facility] Last Admin: 11/21/16 09:07 Dose: Not Given Nystatin (Nystop Topical Powder) 1 applic TOP BID [facility] Last Admin: 11/21/16 16:15 Dose: Not Given Ondansetron HCl (Zofran Inj) 4 mg IVP Q6 PRN PRN Reason: Nausea/Vomiting Last Admin: 09/19/16 10:26 Dose: 4 mg Pantoprazole Sodium (Protonix Ec Tab) 40 mg PO DAILY [facility] Last Admin: 11/21/16 09:06 Dose: 40 mg Sevelamer HCl (Renagel) 1,600 mg PO TID [facility] Last Admin: 11/21/16 17:23 Dose: 1,600 mg Topiramate (Topamax) 50 mg PO BID [facility] Last Admin: 11/21/16 17:23 Dose: 50 mg Vitamin B Complex/Vit C/Folic Acid (Nephro-Ajay) 1 tab PO DAILY [facility] Last Admin: 11/21/16 09:06 Dose: 1 tab - Labs Labs: 11/21/16 08:20 11/21/16 08:20 PT 17.2 Seconds (9.8-13.1) H 11/19/16 06:00 INR 1.5 (0.9-1.2) H 11/19/16 06:00 APTT 55.8 Seconds (25.6-37.1) H 11/19/16 06:00 - Constitutional Appears: No Acute Distress - Head Exam Head Exam: ATRAUMATIC, NORMAL INSPECTION, NORMOCEPHALIC - Eye Exam Eye Exam: EOMI, Normal appearance, PERRL Pupil Exam: NORMAL ACCOMODATION, PERRL - ENT Exam ENT Exam: Mucous Membranes Moist, Normal Exam - Neck Exam Neck Exam: Full ROM, Normal Inspection. absent: Lymphadenopathy - Respiratory Exam Respiratory Exam: Clear to Ausculation Bilateral, NORMAL BREATHING PATTERN - Cardiovascular Exam Cardiovascular Exam: REGULAR RHYTHM, +S1, +S2. absent: Murmur - GI/Abdominal Exam GI & Abdominal Exam: Soft, Normal Bowel Sounds. absent: Distended, Firm, Tenderness - Exam Exam: NORMAL INSPECTION - Extremities Exam Extremities Exam: Tenderness. absent: Full ROM, Joint Swelling, Normal Inspection Additional comments: b/l BKA. R stump dressing C/D/I. knee full ROM. TTP - Back Exam Back Exam: NORMAL INSPECTION - Neurological Exam Neurological Exam: Alert, Awake, CN II-XII Intact, Oriented x3 - Psychiatric Exam Psychiatric exam: Normal Affect, Normal Mood - Skin Skin Exam: Dry, Warm Assessment and Plan - Assessment and Plan (Free Text) Assessment: 46yo F with PMHx of HTN, ESRD, PVD. General Surgery following s/p Right BKA on . s/p Right BKA Revision and wash-out 11/19. - 11/02: Wound Cx Right Stump - Multi drug resistant Klebsiella - 11/11: Wound Cx Right Stump - Multi drug resistant Klebsiella - 11/18: Bone scan - positive at right tibial stump. Increased uptake at right patella. - 11/19 wound cx Gram neg gloria - Continue renal diet - Continue medical management - OK to start on anticoagulation - IV Abx as per ID - Pain management - Encourage IS use - PT Further recs as per Dr. Mccormack <Raffy Mccormack - Last Filed: 11/22/16 20:25> Objective - Vital Signs/Intake and Output Vital Signs (last 24 hours): Temp Pulse Resp BP Pulse Ox 98 F 114 H 18 122/84 98 11/22/16 16:19 11/22/16 16:19 11/22/16 16:19 11/22/16 16:19 11/22/16 16:19 Intake and Output: 11/22/16 11/23/16 18:59 06:59 Output Total 3500 Balance -3500 - Medications Medications: Current Medications Acetaminophen (Tylenol 325mg Tab) 650 mg PO Q4 PRN PRN Reason: Fever >100.4 F Last Admin: 11/21/16 00:44 Dose: 650 mg Acetaminophen (Tylenol 325mg Tab) 650 mg PO Q4 PRN PRN Reason: Pain, moderate (4-7) Last Admin: 09/16/16 22:34 Dose: 650 mg Albuterol Sulfate (Albuterol 0.083% Inhal Barbie (2.5 Mg/3 Ml) Ud) 2.5 mg INH RQ4 PRN PRN Reason: Shortness of Breath Albuterol/Ipratropium (Duoneb 3 Mg/0.5 Mg (3 Ml) Ud) 3 ml INH RQ4 PRN PRN Reason: Shortness of Breath Last Admin: 11/11/16 07:39 Dose: 3 ml Apixaban (Eliquis) 5 mg PO BID [facility] PRN Reason: Protocol Last Admin: 11/22/16 17:12 Dose: 5 mg Aspirin (Ecotrin) 81 mg PO DAILY [facility] Last Admin: 11/22/16 09:51 Dose: 81 mg Atorvastatin Calcium (Lipitor) 40 mg PO DAILY [facility] Last Admin: 11/22/16 09:51 Dose: 40 mg Benzonatate (Tessalon Perles) 200 mg PO TID PRN PRN Reason: Cough Last Admin: 11/21/16 09:06 Dose: 200 mg Calcium Carbonate (Oscal) 500 mg PO BIDWM [facility] Last Admin: 11/22/16 17:13 Dose: 500 mg Cinacalcet (Sensipar) 30 mg PO DAILY [facility] Last Admin: 11/22/16 09:53 Dose: 30 mg Collagenase (Santyl) 1 applic TOP DAILY [facility] Last Admin: 11/22/16 09:00 Dose: 1 applic Diphenhydramine HCl (Benadryl) 25 mg PO Q6 PRN PRN Reason: Itching / Pruritus Last Admin: 11/12/16 08:34 Dose: 25 mg Epoetin Tha (Procrit) 20,000 unit IV MWF [facility] Last Admin: 11/22/16 15:54 Dose: Not Given Ergocalciferol (Drisdol 50,000 Intl Units Cap) 1 cap PO WED [facility] Last Admin: 11/20/16 10:00 Dose: 1 cap Fluconazole (Diflucan) 100 mg PO DAILY [facility] Last Admin: 11/22/16 09:45 Dose: 100 mg Gabapentin (Neurontin) 300 mg PO TID [facility] Last Admin: 11/22/16 17:13 Dose: 300 mg Hydrocortisone (Anusol-Hc) 1 applic [place] BID PRN PRN Reason: Inflammation Hydromorphone HCl (Dilaudid) 1 mg IVP Q2H PRN PRN Reason: Pain, severe (8-10) Last Admin: 11/22/16 19:56 Dose: 1 mg Meropenem 500 mg/ Sodium (Chloride) 100 mls @ 100 mls/hr IVPB DAILY@0100 [facility] Last Admin: 11/22/16 00:21 Dose: 100 mls/hr Gentamicin Sulfate/Sodium Chloride (Gentamicin 100mg/100ml Ns) 100 mg in 100 mls @ 100 mls/hr IVPB MWF [facility] Last Admin: 11/22/16 15:52 Dose: 100 mls/hr Tigecycline 25 mg/ Sodium (Chloride) 100 mls @ 100 mls/hr IVPB Q12 [facility] Last Admin: 11/22/16 09:59 Dose: 100 mls/hr Sodium Chloride (Sodium Chloride 0.9%) 1,000 mls @ 10 mls/hr IV .Q24H [facility] Sodium Chloride (Sodium Chloride 0.45%) 500 mls @ 10 mls/hr IV .Q24H [facility] Last Admin: 11/21/16 16:16 Dose: 10 mls/hr Daptomycin 650 mg/ Sodium (Chloride) 100 mls @ 100 mls/hr IVPB MWF@1800 [facility] Stop: 12/16/16 18:59 Last Admin: 11/22/16 18:49 Dose: 100 mls/hr Insulin Detemir (Levemir) 6 units SC HS [facility] Last Admin: 11/21/16 22:22 Dose: 6 units Insulin Human Lispro (Humalog) 4 units SC AC [facility] Last Admin: 11/22/16 17:12 Dose: 4 units Lidocaine (Lidoderm) 1 ea TD DAILY [facility] Last Admin: 11/22/16 12:57 Dose: 1 ea Nystatin (Nystop Topical Powder) 1 applic TOP BID [facility] Last Admin: 11/22/16 17:13 Dose: Not Given Ondansetron HCl (Zofran Inj) 4 mg IVP Q6 PRN PRN Reason: Nausea/Vomiting Last Admin: 09/19/16 10:26 Dose: 4 mg Pantoprazole Sodium (Protonix Ec Tab) 40 mg PO DAILY [facility] Last Admin: 11/22/16 09:46 Dose: 40 mg Sevelamer HCl (Renagel) 1,600 mg PO TID [facility] Last Admin: 11/22/16 17:14 Dose: 1,600 mg Topiramate (Topamax) 50 mg PO BID [facility] Last Admin: 11/22/16 17:14 Dose: 50 mg Vitamin B Complex/Vit C/Folic Acid (Nephro-Ajay) 1 tab PO DAILY [facility] Last Admin: 11/22/16 09:52 Dose: 1 tab - Labs Labs: 11/22/16 14:48 11/22/16 14:48 PT 17.2 Seconds (9.8-13.1) H 11/19/16 06:00 INR 1.5 (0.9-1.2) H 11/19/16 06:00 APTT 55.8 Seconds (25.6-37.1) H 11/19/16 06:00 Assessment and Plan - Assessment and Plan (Free Text) Plan: Patient seen and examined.She has no acute or immediate complaints. Patient remained hemodynamically and clinically stable with no systemic signs of infection. Right BKA wound was examined at bedside and dressing was changed. The wound still looks soupy. I took out several vertical mattress stitches to allow for better wound packing and drainage. The wound was packed wet-to-dry with normal saline. At this point plan of care includes antibiotics, local wound care and supportive management. If within next 3-5 days or so right BKA wound doesn't show progress toward healing and local infection proves impossible to control due to marginal blood supply and multiple severe comorbidities we, i.e. group of medical providers and the patient, should discuss other available options. I will re-examined the wound tomorrow.
[2016-11-22] MEDS: Santyl Collagenase OINTMENT TOP SCH (09:00)
[2016-11-22] MEDS: Pantoprazole 40 mg EC Tab PO SCH (09:46)
[2016-11-22] MEDS: Gentamicin 100mg/100ml NS 100 MG/100 ML BAG IVPB SCH ×2 (09:47→15:52)
[2016-11-22] MEDS: Insulin Lispro (humaLOG) 100 Units/ml Inj SC SCH ×3 (09:48→17:12)
[2016-11-22] MEDS: Multivitamin Vitamin B Complex (Nephro-Vite) Tab PO SCH (09:52)
[2016-11-22] MEDS: TIGECYCLINE IVPB SCH ×2 (09:59→20:53)
[2016-11-22] MEDS: SODIUM CHLORIDE 0.9% IVPB SCH ×2 (09:59→20:53)
--- NOTE | 2016-11-22 11:13 | CP.PCM.PN ---
Subjective - Date & Time of Evaluation Date of Evaluation: 11/22/16 Time of Evaluation: 11:11 - Subjective Subjective: pt. ia awake feels better receiving PT HD starting sharlene Objective - Vital Signs/Intake and Output Vital Signs (last 24 hours): Temp Pulse Resp BP Pulse Ox 98.4 F 107 H 18 114/51 L 100 11/22/16 07:38 11/22/16 07:38 11/22/16 07:38 11/22/16 07:38 11/22/16 07:38 Intake and Output: 11/22/16 11/22/16 06:59 18:59 Intake Total 160 Balance 160 - Medications Medications: Current Medications Acetaminophen (Tylenol 325mg Tab) 650 mg PO Q4 PRN PRN Reason: Fever >100.4 F Last Admin: 11/21/16 00:44 Dose: 650 mg Acetaminophen (Tylenol 325mg Tab) 650 mg PO Q4 PRN PRN Reason: Pain, moderate (4-7) Last Admin: 09/16/16 22:34 Dose: 650 mg Albuterol Sulfate (Albuterol 0.083% Inhal Barbie (2.5 Mg/3 Ml) Ud) 2.5 mg INH RQ4 PRN PRN Reason: Shortness of Breath Albuterol/Ipratropium (Duoneb 3 Mg/0.5 Mg (3 Ml) Ud) 3 ml INH RQ4 PRN PRN Reason: Shortness of Breath Last Admin: 11/11/16 07:39 Dose: 3 ml Apixaban (Eliquis) 5 mg PO BID [facility] PRN Reason: Protocol Last Admin: 11/22/16 09:46 Dose: 5 mg Aspirin (Ecotrin) 81 mg PO DAILY [facility] Last Admin: 11/22/16 09:51 Dose: 81 mg Atorvastatin Calcium (Lipitor) 40 mg PO DAILY [facility] Last Admin: 11/22/16 09:51 Dose: 40 mg Benzonatate (Tessalon Perles) 200 mg PO TID PRN PRN Reason: Cough Last Admin: 11/21/16 09:06 Dose: 200 mg Calcium Carbonate (Oscal) 500 mg PO BIDWM [facility] Last Admin: 11/22/16 09:52 Dose: 500 mg Cinacalcet (Sensipar) 30 mg PO DAILY [facility] Last Admin: 11/22/16 09:53 Dose: 30 mg Collagenase (Santyl) 1 applic TOP DAILY [facility] Last Admin: 11/18/16 15:29 Dose: 1 applic Diphenhydramine HCl (Benadryl) 25 mg PO Q6 PRN PRN Reason: Itching / Pruritus Last Admin: 11/12/16 08:34 Dose: 25 mg Epoetin Tha (Procrit) 20,000 unit IV [place] Last Admin: 11/20/16 11:52 Dose: 20,000 unit Ergocalciferol (Drisdol 50,000 Intl Units Cap) 1 cap PO WED [facility] Last Admin: 11/20/16 10:00 Dose: 1 cap Fluconazole (Diflucan) 100 mg PO DAILY [facility] Last Admin: 11/22/16 09:45 Dose: 100 mg Gabapentin (Neurontin) 300 mg PO TID [facility] Last Admin: 11/22/16 09:52 Dose: 300 mg Hydrocortisone (Anusol-Hc) 1 applic [place] BID PRN PRN Reason: Inflammation Hydromorphone HCl (Dilaudid) 1 mg IVP Q2H PRN PRN Reason: Pain, severe (8-10) Last Admin: 11/22/16 08:23 Dose: 1 mg Meropenem 500 mg/ Sodium (Chloride) 100 mls @ 100 mls/hr IVPB DAILY@0100 [facility] Last Admin: 11/22/16 00:21 Dose: 100 mls/hr Gentamicin Sulfate/Sodium Chloride (Gentamicin 100mg/100ml Ns) 100 mg in 100 mls @ 100 mls/hr IVPB [place] Last Admin: 11/20/16 09:01 Dose: 100 mls/hr Tigecycline 25 mg/ Sodium (Chloride) 100 mls @ 100 mls/hr IVPB Q12 [facility] Last Admin: 11/22/16 09:59 Dose: 100 mls/hr Sodium Chloride (Sodium Chloride 0.9%) 1,000 mls @ 10 mls/hr IV .Q24H [facility] Daptomycin 650 mg/ Sodium (Chloride) 100 mls @ 100 mls/hr IVPB [place] Stop: 12/16/16 09:59 Last Admin: 11/20/16 16:00 Dose: 100 mls/hr Sodium Chloride (Sodium Chloride 0.45%) 500 mls @ 10 mls/hr IV .Q24H [facility] Last Admin: 11/21/16 16:16 Dose: 10 mls/hr Insulin Detemir (Levemir) 6 units SC HS [facility] Last Admin: 11/21/16 22:22 Dose: 6 units Insulin Human Lispro (Humalog) 4 units SC AC [facility] Last Admin: 11/22/16 09:48 Dose: 4 units Lidocaine (Lidoderm) 1 ea TD DAILY [facility] Last Admin: 11/21/16 09:07 Dose: Not Given Nystatin (Nystop Topical Powder) 1 applic TOP BID [facility] Last Admin: 11/21/16 16:15 Dose: Not Given Ondansetron HCl (Zofran Inj) 4 mg IVP Q6 PRN PRN Reason: Nausea/Vomiting Last Admin: 09/19/16 10:26 Dose: 4 mg Pantoprazole Sodium (Protonix Ec Tab) 40 mg PO DAILY [facility] Last Admin: 11/22/16 09:46 Dose: 40 mg Sevelamer HCl (Renagel) 1,600 mg PO TID [facility] Last Admin: 11/22/16 09:45 Dose: 1,600 mg Topiramate (Topamax) 50 mg PO BID [facility] Last Admin: 11/22/16 10:12 Dose: 50 mg Vitamin B Complex/Vit C/Folic Acid (Nephro-Ajay) 1 tab PO DAILY [facility] Last Admin: 11/22/16 09:52 Dose: 1 tab - Labs Labs: 11/21/16 08:20 11/21/16 08:20 PT 17.2 Seconds (9.8-13.1) H 11/19/16 06:00 INR 1.5 (0.9-1.2) H 11/19/16 06:00 APTT 55.8 Seconds (25.6-37.1) H 11/19/16 06:00 - Constitutional Appears: No Acute Distress - Respiratory Exam Respiratory Exam: NORMAL BREATHING PATTERN. absent: Chest Wall Tenderness - Cardiovascular Exam Cardiovascular Exam: absent: JVD, Rubs - GI/Abdominal Exam GI & Abdominal Exam: Normal Bowel Sounds - Extremities Exam Extremities Exam: absent: Calf Tenderness - Back Exam Back Exam: absent: CVA tenderness (L), CVA tenderness (R) - Neurological Exam Neurological Exam: Alert Assessment and Plan (1) ESRD (end stage renal disease) Assessment & Plan: ESRD with S/P debridment HD as ordered K 2 bicarb 34 ATBX as per primary team Status: Chronic (2) Cellulitis of leg Status: Chronic
[2016-11-22] MEDS: Lidocaine 5% Patch TD SCH (12:57)
--- NOTE | 2016-11-22 13:35 | CP.PCM.PN ---
Subjective - Date & Time of Evaluation Date of Evaluation: 11/22/16 Time of Evaluation: 13:33 - Subjective Subjective: Patient is comfortable, about to start hemodialysis. Will get CBC and CMP. Unfortunately wound cultures of 11/19/16 are again positive for Klebisella pn. ( Message sent to Dr. Lemon). Patient continues on same iv antibiotics for now. Apparently the specimen of bone from the OR was never sent for histopathology ......... T max 99 just after midnight, no feverssince then; No pain, dyspnea. Appetite and elimination are good. We may have to increase insulin dosing now to account for increased food consumption. On Eliquis and aspirin now. Topamax also continues. Objective - Vital Signs/Intake and Output Vital Signs (last 24 hours): Temp Pulse Resp BP Pulse Ox 98.4 F 107 H 18 114/51 L 100 11/22/16 09:00 11/22/16 09:00 11/22/16 09:00 11/22/16 09:00 11/22/16 09:00 Intake and Output: 11/22/16 11/22/16 06:59 18:59 Intake Total 160 Balance 160 - Medications Medications: Current Medications Acetaminophen (Tylenol 325mg Tab) 650 mg PO Q4 PRN PRN Reason: Fever >100.4 F Last Admin: 11/21/16 00:44 Dose: 650 mg Acetaminophen (Tylenol 325mg Tab) 650 mg PO Q4 PRN PRN Reason: Pain, moderate (4-7) Last Admin: 09/16/16 22:34 Dose: 650 mg Albuterol Sulfate (Albuterol 0.083% Inhal Barbie (2.5 Mg/3 Ml) Ud) 2.5 mg INH RQ4 PRN PRN Reason: Shortness of Breath Albuterol/Ipratropium (Duoneb 3 Mg/0.5 Mg (3 Ml) Ud) 3 ml INH RQ4 PRN PRN Reason: Shortness of Breath Last Admin: 11/11/16 07:39 Dose: 3 ml Apixaban (Eliquis) 5 mg PO BID [facility] PRN Reason: Protocol Last Admin: 11/22/16 09:46 Dose: 5 mg Aspirin (Ecotrin) 81 mg PO DAILY [facility] Last Admin: 11/22/16 09:51 Dose: 81 mg Atorvastatin Calcium (Lipitor) 40 mg PO DAILY [facility] Last Admin: 11/22/16 09:51 Dose: 40 mg Benzonatate (Tessalon Perles) 200 mg PO TID PRN PRN Reason: Cough Last Admin: 11/21/16 09:06 Dose: 200 mg Calcium Carbonate (Oscal) 500 mg PO BIDWM [facility] Last Admin: 11/22/16 09:52 Dose: 500 mg Cinacalcet (Sensipar) 30 mg PO DAILY [facility] Last Admin: 11/22/16 09:53 Dose: 30 mg Collagenase (Santyl) 1 applic TOP DAILY [facility] Last Admin: 11/22/16 09:00 Dose: 1 applic Diphenhydramine HCl (Benadryl) 25 mg PO Q6 PRN PRN Reason: Itching / Pruritus Last Admin: 11/12/16 08:34 Dose: 25 mg Epoetin Tha (Procrit) 20,000 unit IV [facility] [place] Last Admin: 11/20/16 11:52 Dose: 20,000 unit Ergocalciferol (Drisdol 50,000 Intl Units Cap) 1 cap PO WED [facility] Last Admin: 11/20/16 10:00 Dose: 1 cap Fluconazole (Diflucan) 100 mg PO DAILY [facility] Last Admin: 11/22/16 09:45 Dose: 100 mg Gabapentin (Neurontin) 300 mg PO TID [facility] Last Admin: 11/22/16 13:02 Dose: 300 mg Hydrocortisone (Anusol-Hc) 1 applic [place] BID PRN PRN Reason: Inflammation Hydromorphone HCl (Dilaudid) 1 mg IVP Q2H PRN PRN Reason: Pain, severe (8-10) Last Admin: 11/22/16 11:31 Dose: 1 mg Meropenem 500 mg/ Sodium (Chloride) 100 mls @ 100 mls/hr IVPB DAILY@0100 [facility] Last Admin: 11/22/16 00:21 Dose: 100 mls/hr Gentamicin Sulfate/Sodium Chloride (Gentamicin 100mg/100ml Ns) 100 mg in 100 mls @ 100 mls/hr IVPB MWF [facility] Last Admin: 11/20/16 09:01 Dose: 100 mls/hr Tigecycline 25 mg/ Sodium (Chloride) 100 mls @ 100 mls/hr IVPB Q12 [facility] Last Admin: 11/22/16 09:59 Dose: 100 mls/hr Sodium Chloride (Sodium Chloride 0.9%) 1,000 mls @ 10 mls/hr IV .Q24H [facility] Daptomycin 650 mg/ Sodium (Chloride) 100 mls @ 100 mls/hr IVPB MWF [facility] Stop: 12/16/16 09:59 Last Admin: 11/20/16 16:00 Dose: 100 mls/hr Sodium Chloride (Sodium Chloride 0.45%) 500 mls @ 10 mls/hr IV .Q24H [facility] Last Admin: 11/21/16 16:16 Dose: 10 mls/hr Insulin Detemir (Levemir) 6 units SC HS [facility] Last Admin: 11/21/16 22:22 Dose: 6 units Insulin Human Lispro (Humalog) 4 units SC AC [facility] Last Admin: 11/22/16 12:57 Dose: 4 units Lidocaine (Lidoderm) 1 ea TD DAILY [facility] Last Admin: 11/22/16 12:57 Dose: 1 ea Nystatin (Nystop Topical Powder) 1 applic TOP BID [facility] Last Admin: 11/22/16 09:52 Dose: Not Given Ondansetron HCl (Zofran Inj) 4 mg IVP Q6 PRN PRN Reason: Nausea/Vomiting Last Admin: 09/19/16 10:26 Dose: 4 mg Pantoprazole Sodium (Protonix Ec Tab) 40 mg PO DAILY [facility] Last Admin: 11/22/16 09:46 Dose: 40 mg Sevelamer HCl (Renagel) 1,600 mg PO TID [facility] Last Admin: 11/22/16 13:01 Dose: 1,600 mg Topiramate (Topamax) 50 mg PO BID [facility] Last Admin: 11/22/16 10:12 Dose: 50 mg Vitamin B Complex/Vit C/Folic Acid (Nephro-Ajay) 1 tab PO DAILY [facility] Last Admin: 11/22/16 09:52 Dose: 1 tab - Labs Labs: 11/21/16 08:20 11/21/16 08:20 PT 17.2 Seconds (9.8-13.1) H 11/19/16 06:00 INR 1.5 (0.9-1.2) H 11/19/16 06:00 APTT 55.8 Seconds (25.6-37.1) H 11/19/16 06:00 - Constitutional Appears: Non-toxic, No Acute Distress - Head Exam Head Exam: NORMAL INSPECTION - Eye Exam Eye Exam: Normal appearance - ENT Exam ENT Exam: Mucous Membranes Moist - Neck Exam Neck Exam: Normal Inspection - Respiratory Exam Respiratory Exam: Clear to Ausculation Bilateral, NORMAL BREATHING PATTERN - Cardiovascular Exam Cardiovascular Exam: REGULAR RHYTHM, +S1, +S2 - Extremities Exam Additional comments: Dressing dry and intact right residual limb. - Back Exam Back Exam: NORMAL INSPECTION - Neurological Exam Neurological Exam: Alert, Awake, Oriented x3 - Psychiatric Exam Psychiatric exam: Anxious - Skin Skin Exam: Dry, Normal Color, Warm Assessment and Plan (1) Status post below knee amputation of right lower extremity Assessment & Plan: Day 2 S/P revision of right BK amputation. The abnormal patella findings on mri and the persistence of Klebsiella pn. on cultures are very worrisome. Status: Acute (2) ESRD (end stage renal disease) on dialysis Status: Chronic (3) DM type 2 (diabetes mellitus, type 2) Assessment & Plan: Will check on glucose after results back. Will probably need insulin adjustment. Status: Chronic (4) Coagulopathy Assessment & Plan: Viki must not be allowed to fall off the orders !!! Status: Chronic (5) Peripheral arterial occlusive disease Status: Chronic
[2016-11-22 14:58] LABS: BASO # 0.1 K/uL (0.0-0.2); BASO % 0.6 % (0.0-2.0); EOS # 0.7 K/uL (0.0-0.7); EOS % 4.6 % (0.0-4.0); HEMATOCRIT 31.2 % (34.0-47.0); LYMPH # 1.9 K/uL (1.0-4.3); LYMPH % 13.6 % (20.0-40.0); MEAN CELL VOLUME 100.3 fl (81.0-99.0); MEAN CORPUSCULAR HGB CONC 31.9 g/dL (33.0-37.0); MEAN PLATELET VOLUME 9.6 fl (7.2-11.7); MONO # 1.7 K/uL (0.0-0.8); NEUT # 9.9 K/uL (1.8-7.0); NEUT % 69.2 % (50.0-75.0); RED CELL DISTRIBUTION WIDTH 21.7 % (11.5-14.5); WHITE BLOOD COUNT 14.3 K/uL (4.8-10.8)
[2016-11-22 15:04] LABS: ALB/GLOB RATIO 0.8 (1.0-2.1); BILIRUBIN,TOTAL 0.6 mg/dl (0.2-1.3); CALCIUM 9.2 mg/dL (8.4-10.2); POTASSIUM 5.4 MMOL/L (3.6-5.0); TOTAL PROTEIN 8.3 G/DL (6.3-8.2)
[2016-11-22] MEDS: Epoetin Alfa 20000 UNIT/ML Inj IV SCH ×2 (15:53→15:54)
--- NOTE | 2016-11-22 18:16 | PROCN ---
DATE: She is in ICU room 435. SUBJECTIVE: This is a 46-year-old female with recent uncontrolled type 2 insulin-requiring diabetes, now being followed closely for metabolic management. She underwent a recent deep debridement of her right below-knee amputation stump as noted thereof. There was underlying osteomyelitis as noted preoperatively. Her glycemic levels are fluctuating as her oral intake is quite variable and suboptimal as noted thereof. Her latest glucose values have ranged from 107-160 mg/dL. LABORATORY DATA: Her latest chemistry showed a BUN of 44, sodium 136, potassium 5.1, chloride 98, CO2 of 26, glucose 128, and creatinine 5.5. ASSESSMENT AND PLAN: So, at this time, we will continue the modified basal and bolus insulin regimen and keep her on the Humalog given as 4 units subcu t.i.d. before meals as ordered. We will continue the basal insulin given as Levemir at 6 units subcu at bedtime daily as given. We will titrate incremental as indicated to optimize metabolic control. We will follow and advise accordingly. Irene Ambrose MD
[2016-11-22] MEDS: Insulin Detemir 100 Units/ml Inj SC SCH (21:25)
--- NOTE | 2016-11-22 23:05 | CP.PCM.PN ---
Subjective - Date & Time of Evaluation Date of Evaluation: 11/22/16 Time of Evaluation: 20:40 - Subjective Subjective: Clinically, she is not suffering, however her Blood Culture is showing heavy Klebsiella Pneumonia Growth. She is receiving her antibiotics. Blood Culture sensitivity is strongly favoring ( Sulfamethoxazole/ Trimethoprim). Today was her Hemodialysis M,W, F. There is no seizures on Topamax. Objective - Vital Signs/Intake and Output Vital Signs (last 24 hours): Temp Pulse Resp BP Pulse Ox 98 F 114 H 18 122/84 98 11/22/16 16:19 11/22/16 16:19 11/22/16 16:19 11/22/16 16:19 11/22/16 16:19 Intake and Output: 11/22/16 11/23/16 18:59 06:59 Intake Total 560 Output Total 3500 Balance -3500 560 - Medications Medications: Current Medications Acetaminophen (Tylenol 325mg Tab) 650 mg PO Q4 PRN PRN Reason: Fever >100.4 F Last Admin: 11/21/16 00:44 Dose: 650 mg Acetaminophen (Tylenol 325mg Tab) 650 mg PO Q4 PRN PRN Reason: Pain, moderate (4-7) Last Admin: 09/16/16 22:34 Dose: 650 mg Albuterol Sulfate (Albuterol 0.083% Inhal Barbie (2.5 Mg/3 Ml) Ud) 2.5 mg INH RQ4 PRN PRN Reason: Shortness of Breath Albuterol/Ipratropium (Duoneb 3 Mg/0.5 Mg (3 Ml) Ud) 3 ml INH RQ4 PRN PRN Reason: Shortness of Breath Last Admin: 11/11/16 07:39 Dose: 3 ml Apixaban (Eliquis) 5 mg PO BID [facility] PRN Reason: Protocol Last Admin: 11/22/16 17:12 Dose: 5 mg Aspirin (Ecotrin) 81 mg PO DAILY [facility] Last Admin: 11/22/16 09:51 Dose: 81 mg Atorvastatin Calcium (Lipitor) 40 mg PO DAILY [facility] Last Admin: 11/22/16 09:51 Dose: 40 mg Benzonatate (Tessalon Perles) 200 mg PO TID PRN PRN Reason: Cough Last Admin: 11/21/16 09:06 Dose: 200 mg Calcium Carbonate (Oscal) 500 mg PO BIDWM [facility] Last Admin: 11/22/16 17:13 Dose: 500 mg Cinacalcet (Sensipar) 30 mg PO DAILY [facility] Last Admin: 11/22/16 09:53 Dose: 30 mg Collagenase (Santyl) 1 applic TOP DAILY [facility] Last Admin: 11/22/16 09:00 Dose: 1 applic Diphenhydramine HCl (Benadryl) 25 mg PO Q6 PRN PRN Reason: Itching / Pruritus Last Admin: 11/12/16 08:34 Dose: 25 mg Epoetin Tha (Procrit) 20,[facility] Last Admin: 11/22/16 15:54 Dose: Not Given Ergocalciferol (Drisdol 50,000 Intl Units Cap) 1 cap PO WED [facility] Last Admin: 11/20/16 10:00 Dose: 1 cap Fluconazole (Diflucan) 100 mg PO DAILY [facility] Last Admin: 11/22/16 09:45 Dose: 100 mg Gabapentin (Neurontin) 300 mg PO TID [facility] Last Admin: 11/22/16 17:13 Dose: 300 mg Hydrocortisone (Anusol-Hc) 1 applic [place] BID PRN PRN Reason: Inflammation Hydromorphone HCl (Dilaudid) 1 mg IVP Q2H PRN PRN Reason: Pain, severe (8-10) Last Admin: 11/22/16 19:56 Dose: 1 mg Meropenem 500 mg/ Sodium (Chloride) 100 mls @ 100 mls/hr IVPB DAILY@0100 [facility] Last Admin: 11/22/16 00:21 Dose: 100 mls/hr Gentamicin Sulfate/Sodium Chloride (Gentamicin 100mg/100ml Ns) 100 mg in 100 mls @ 100 mls/hr IVPB MWF [facility] Last Admin: 11/22/16 15:52 Dose: 100 mls/hr Tigecycline 25 mg/ Sodium (Chloride) 100 mls @ 100 mls/hr IVPB Q12 [facility] Last Admin: 11/22/16 20:53 Dose: 100 mls/hr Sodium Chloride (Sodium Chloride 0.9%) 1,000 mls @ 10 mls/hr IV .Q24H [facility] Sodium Chloride (Sodium Chloride 0.45%) 500 mls @ 10 mls/hr IV .Q24H [facility] Last Admin: 11/21/16 16:16 Dose: 10 mls/hr Daptomycin 650 mg/ Sodium (Chloride) 100 mls @ 100 mls/hr IVPB MWF@1800 [facility] Stop: 12/16/16 18:59 Last Admin: 11/22/16 18:49 Dose: 100 mls/hr Insulin Detemir (Levemir) 6 units SC HS [facility] Last Admin: 11/22/16 21:25 Dose: 6 units Insulin Human Lispro (Humalog) 4 units SC AC [facility] Last Admin: 11/22/16 17:12 Dose: 4 units Lidocaine (Lidoderm) 1 ea TD DAILY [facility] Last Admin: 11/22/16 12:57 Dose: 1 ea Nystatin (Nystop Topical Powder) 1 applic TOP BID [facility] Last Admin: 11/22/16 17:13 Dose: Not Given Ondansetron HCl (Zofran Inj) 4 mg IVP Q6 PRN PRN Reason: Nausea/Vomiting Last Admin: 09/19/16 10:26 Dose: 4 mg Pantoprazole Sodium (Protonix Ec Tab) 40 mg PO DAILY [facility] Last Admin: 11/22/16 09:46 Dose: 40 mg Sevelamer HCl (Renagel) 1,600 mg PO TID [facility] Last Admin: 11/22/16 17:14 Dose: 1,600 mg Topiramate (Topamax) 50 mg PO BID [facility] Last Admin: 11/22/16 17:14 Dose: 50 mg Vitamin B Complex/Vit C/Folic Acid (Nephro-Ajay) 1 tab PO DAILY [facility] Last Admin: 11/22/16 09:52 Dose: 1 tab - Labs Labs: 11/22/16 14:48 11/22/16 14:48 PT 17.2 Seconds (9.8-13.1) H 11/19/16 06:00 INR 1.5 (0.9-1.2) H 11/19/16 06:00 APTT 55.8 Seconds (25.6-37.1) H 11/19/16 06:00 Assessment and Plan (1) Diabetes Status: Chronic (2) ESRD (end stage renal disease) Status: Chronic (3) Cellulitis of leg Status: Chronic (4) Hyperlipidemia Status: Chronic (5) Back pain Status: Acute (6) Bacteremia due to Gram-negative bacteria Status: Acute (7) Diabetes mellitus type 2 with peripheral artery disease Status: Acute (8) PVD (peripheral vascular disease) Status: Acute (9) Osteomyelitis of right leg Status: Acute
[2016-11-23] MEDS: Meropenem 500 MG in Sodium Chloride 0.9% 100 ML IVPB SCH (00:31)
--- NOTE | 2016-11-23 07:13 | CP.PCM.PN ---
<Jo Philippe - Last Filed: 11/23/16 08:09> Subjective - Date & Time of Evaluation Date of Evaluation: 11/23/16 Time of Evaluation: 06:30 - Subjective Subjective: General Surgery progress note for Dr. Mccormack Pt S & E at bedside. OVIDIO. Dressing and packing changed yesterday evening- tolerated well. Tolerating diet, having soft formed BMs. Denies N/V/F/C, SOB, CP. Working with PT. Objective - Vital Signs/Intake and Output Vital Signs (last 24 hours): Temp Pulse Resp BP Pulse Ox 98.4 F 105 H 18 121/70 96 11/23/16 05:00 11/23/16 05:00 11/23/16 05:00 11/23/16 05:00 11/23/16 05:00 Intake and Output: 11/23/16 11/23/16 06:59 18:59 Intake Total 560 Balance 560 - Medications Medications: Current Medications Acetaminophen (Tylenol 325mg Tab) 650 mg PO Q4 PRN PRN Reason: Fever >100.4 F Last Admin: 11/21/16 00:44 Dose: 650 mg Acetaminophen (Tylenol 325mg Tab) 650 mg PO Q4 PRN PRN Reason: Pain, moderate (4-7) Last Admin: 09/16/16 22:34 Dose: 650 mg Albuterol Sulfate (Albuterol 0.083% Inhal Barbie (2.5 Mg/3 Ml) Ud) 2.5 mg INH RQ4 PRN PRN Reason: Shortness of Breath Albuterol/Ipratropium (Duoneb 3 Mg/0.5 Mg (3 Ml) Ud) 3 ml INH RQ4 PRN PRN Reason: Shortness of Breath Last Admin: 11/11/16 07:39 Dose: 3 ml Apixaban (Eliquis) 5 mg PO BID [facility] PRN Reason: Protocol Last Admin: 11/22/16 17:12 Dose: 5 mg Aspirin (Ecotrin) 81 mg PO DAILY [facility] Last Admin: 11/22/16 09:51 Dose: 81 mg Atorvastatin Calcium (Lipitor) 40 mg PO DAILY [facility] Last Admin: 11/22/16 09:51 Dose: 40 mg Benzonatate (Tessalon Perles) 200 mg PO TID PRN PRN Reason: Cough Last Admin: 11/21/16 09:06 Dose: 200 mg Calcium Carbonate (Oscal) 500 mg PO BIDWM [facility] Last Admin: 11/22/16 17:13 Dose: 500 mg Cinacalcet (Sensipar) 30 mg PO DAILY [facility] Last Admin: 11/22/16 09:53 Dose: 30 mg Collagenase (Santyl) 1 applic TOP DAILY [facility] Last Admin: 11/22/16 09:00 Dose: 1 applic Diphenhydramine HCl (Benadryl) 25 mg PO Q6 PRN PRN Reason: Itching / Pruritus Last Admin: 11/12/16 08:34 Dose: 25 mg [facility]etin [facility]a ([facility]crit) [facility] Last Admin: 11/22/16 15:54 Dose: Not Given Ergocalciferol (Drisdol 50,000 Intl Units Cap) 1 cap PO WED [facility] Last Admin: 11/20/16 10:00 Dose: 1 cap Fluconazole (Diflucan) 100 mg PO DAILY [facility] Last Admin: 11/22/16 09:45 Dose: 100 mg Gabapentin (Neurontin) 300 mg PO TID [facility] Last Admin: 11/22/16 17:13 Dose: 300 mg Hydrocortisone (Anusol-Hc) 1 applic [place] BID PRN PRN Reason: Inflammation Hydromorphone HCl (Dilaudid) 1 mg IVP Q2H PRN PRN Reason: Pain, severe (8-10) Last Admin: 11/23/16 04:05 Dose: 1 mg Meropenem 500 mg/ Sodium (Chloride) 100 mls @ 100 mls/hr IVPB DAILY@0100 [facility] Last Admin: 11/23/16 00:31 Dose: 100 mls/hr Gentamicin Sulfate/Sodium Chloride (Gentamicin 100mg/100ml Ns) 100 mg in 100 mls @ 100 mls/hr IVPB MWF [facility] Last Admin: 11/22/16 15:52 Dose: 100 mls/hr Tigecycline 25 mg/ Sodium (Chloride) 100 mls @ 100 mls/hr IVPB Q12 [facility] Last Admin: 11/22/16 20:53 Dose: 100 mls/hr Sodium Chloride (Sodium Chloride 0.9%) 1,000 mls @ 10 mls/hr IV .Q24H [facility] Sodium Chloride (Sodium Chloride 0.45%) 500 mls @ 10 mls/hr IV .Q24H [facility] Last Admin: 11/21/16 16:16 Dose: 10 mls/hr Daptomycin 650 mg/ Sodium (Chloride) 100 mls @ 100 mls/hr IVPB MWF@1800 [facility] Stop: 12/16/16 18:59 Last Admin: 11/22/16 18:49 Dose: 100 mls/hr Insulin Detemir (Levemir) 6 units SC HS [facility] Last Admin: 11/22/16 21:25 Dose: 6 units Insulin Human Lispro (Humalog) 4 units SC AC [facility] Last Admin: 11/22/16 17:12 Dose: 4 units Lidocaine (Lidoderm) 1 ea TD DAILY [facility] Last Admin: 11/22/16 12:57 Dose: 1 ea Nystatin (Nystop Topical Powder) 1 applic TOP BID [facility] Last Admin: 11/22/16 17:13 Dose: Not Given Ondansetron HCl (Zofran Inj) 4 mg IVP Q6 PRN PRN Reason: Nausea/Vomiting Last Admin: 09/19/16 10:26 Dose: 4 mg Pantoprazole Sodium (Protonix Ec Tab) 40 mg PO DAILY [facility] Last Admin: 11/22/16 09:46 Dose: 40 mg Sevelamer HCl (Renagel) 1,600 mg PO TID [facility] Last Admin: 11/22/16 17:14 Dose: 1,600 mg Topiramate (Topamax) 50 mg PO BID [facility] Last Admin: 11/22/16 17:14 Dose: 50 mg Vitamin B Complex/Vit C/Folic Acid (Nephro-Ajay) 1 tab PO DAILY [facility] Last Admin: 11/22/16 09:52 Dose: 1 tab - Labs Labs: 11/22/16 14:48 11/22/16 14:48 PT 17.2 Seconds (9.8-13.1) H 11/19/16 06:00 INR 1.5 (0.9-1.2) H 11/19/16 06:00 APTT 55.8 Seconds (25.6-37.1) H 11/19/16 06:00 - Constitutional Appears: Non-toxic, No Acute Distress - Head Exam Head Exam: ATRAUMATIC, NORMAL INSPECTION, NORMOCEPHALIC - Eye Exam Eye Exam: EOMI, Normal appearance - ENT Exam ENT Exam: Mucous Membranes Moist - Neck Exam Neck Exam: Normal Inspection - Respiratory Exam Respiratory Exam: Clear to Ausculation Bilateral, NORMAL BREATHING PATTERN - Cardiovascular Exam Cardiovascular Exam: REGULAR RHYTHM, +S1, +S2 - GI/Abdominal Exam GI & Abdominal Exam: Soft, Normal Bowel Sounds. absent: Tenderness - Extremities Exam Extremities Exam: absent: Tenderness Additional comments: R BKA w/dressing in place- C/D/I; non tender to palpation, full ROM - Neurological Exam Neurological Exam: Alert, Awake, CN II-XII Intact, Oriented x3 - Psychiatric Exam Psychiatric exam: Normal Affect, Normal Mood - Skin Skin Exam: Dry, Normal Color, Warm Assessment and Plan - Assessment and Plan (Free Text) Assessment: 46F s/p R BKA (10/01) w/revision and wash out (11/19) - POD #4; wound cx pos for MDR Klebsiella prior to wash out. Plan: Started on Eliquis yesterday Pain control Cont PT Encourage IS use Cont local wound care Cont medical mgmt as per primary team Cont ABx as per ID Dressing to be changed by surgical attendant tomorrow as per Dr. Easton RANKIN attending Denae, PGY-1 <Raffy Mccormack - Last Filed: 11/23/16 13:17> Objective - Vital Signs/Intake and Output Vital Signs (last 24 hours): Temp Pulse Resp BP Pulse Ox 98.2 F 107 H 20 107/55 L 94 L 11/23/16 08:50 11/23/16 08:50 11/23/16 08:50 11/23/16 08:50 11/23/16 08:50 Intake and Output: 11/23/16 11/23/16 06:59 18:59 Intake Total 560 Balance 560 - Medications Medications: Current Medications Acetaminophen (Tylenol 325mg Tab) 650 mg PO Q4 PRN PRN Reason: Fever >100.4 F Last Admin: 11/21/16 00:44 Dose: 650 mg Acetaminophen (Tylenol 325mg Tab) 650 mg PO Q4 PRN PRN Reason: Pain, moderate (4-7) Last Admin: 09/16/16 22:34 Dose: 650 mg Albuterol Sulfate (Albuterol 0.083% Inhal Barbie (2.5 Mg/3 Ml) Ud) 2.5 mg INH RQ4 PRN PRN Reason: Shortness of Breath Albuterol/Ipratropium (Duoneb 3 Mg/0.5 Mg (3 Ml) Ud) 3 ml INH RQ4 PRN PRN Reason: Shortness of Breath Last Admin: 11/11/16 07:39 Dose: 3 ml Apixaban (Eliquis) 5 mg PO BID [facility] PRN Reason: Protocol Last Admin: 11/23/16 09:11 Dose: 5 mg Aspirin (Ecotrin) 81 mg PO DAILY [facility] Last Admin: 11/23/16 09:12 Dose: 81 mg Atorvastatin Calcium (Lipitor) 40 mg PO DAILY [facility] Last Admin: 11/23/16 09:11 Dose: 40 mg Benzonatate (Tessalon Perles) 200 mg PO TID PRN PRN Reason: Cough Last Admin: 11/21/16 09:06 Dose: 200 mg Calcium Carbonate (Oscal) 500 mg PO BIDWM [facility] Last Admin: 11/23/16 09:11 Dose: 500 mg Cinacalcet (Sensipar) 30 mg PO DAILY [facility] Last Admin: 11/23/16 09:11 Dose: 30 mg Collagenase (Santyl) 1 applic TOP DAILY [facility] Last Admin: 11/23/16 09:14 Dose: 1 applic Diphenhydramine HCl (Benadryl) 25 mg PO Q6 PRN PRN Reason: Itching / Pruritus Last Admin: 11/12/16 08:34 Dose: 25 mg Epoetin Tha (Procrit) 20,000 unit IV MWF [facility] Last Admin: 11/22/16 15:54 Dose: Not Given Ergocalciferol (Drisdol 50,000 Intl Units Cap) 1 cap PO WED [facility] Last Admin: 11/20/16 10:00 Dose: 1 cap Fluconazole (Diflucan) 100 mg PO DAILY [facility] Last Admin: 11/23/16 09:12 Dose: 100 mg Gabapentin (Neurontin) 300 mg PO TID [facility] Last Admin: 11/23/16 09:11 Dose: 300 mg Hydrocortisone (Anusol-Hc) 1 applic AL BID PRN PRN Reason: Inflammation Hydromorphone HCl (Dilaudid) 1 mg IVP Q2H PRN PRN Reason: Pain, severe (8-10) Last Admin: 11/23/16 12:34 Dose: 1 mg Meropenem 500 mg/ Sodium (Chloride) 100 mls @ 100 mls/hr IVPB DAILY@0100 [facility] Last Admin: 11/23/16 00:31 Dose: 100 mls/hr Gentamicin Sulfate/Sodium Chloride (Gentamicin 100mg/100ml Ns) 100 mg in 100 mls @ 100 mls/hr IVPB MWF [facility] Last Admin: 11/22/16 15:52 Dose: 100 mls/hr Tigecycline 25 mg/ Sodium (Chloride) 100 mls @ 100 mls/hr IVPB Q12 [facility] Last Admin: 11/23/16 09:10 Dose: 100 mls/hr Sodium Chloride (Sodium Chloride 0.9%) 1,000 mls @ 10 mls/hr IV .Q24H [facility] Sodium Chloride (Sodium Chloride 0.45%) 500 mls @ 10 mls/hr IV .Q24H [facility] Last Admin: 11/21/16 16:16 Dose: 10 mls/hr Daptomycin 650 mg/ Sodium (Chloride) 100 mls @ 100 mls/hr IVPB MWF@1800 [facility] Stop: 12/16/16 18:59 Last Admin: 11/22/16 18:49 Dose: 100 mls/hr Insulin Detemir (Levemir) 6 units SC HS [facility] Last Admin: 11/22/16 21:25 Dose: 6 units Insulin Human Lispro (Humalog) 4 units SC AC [facility] Last Admin: 11/23/16 09:12 Dose: 4 units Lidocaine (Lidoderm) 1 ea TD DAILY [facility] Last Admin: 11/23/16 09:13 Dose: 1 ea Nystatin (Nystop Topical Powder) 1 applic TOP BID [facility] Last Admin: 11/23/16 09:14 Dose: Not Given Ondansetron HCl (Zofran Inj) 4 mg IVP Q6 PRN PRN Reason: Nausea/Vomiting Last Admin: 09/19/16 10:26 Dose: 4 mg Pantoprazole Sodium (Protonix Ec Tab) 40 mg PO DAILY [facility] Last Admin: 11/23/16 09:11 Dose: 40 mg Sevelamer HCl (Renagel) 1,600 mg PO TID [facility] Last Admin: 11/23/16 09:11 Dose: 1,600 mg Topiramate (Topamax) 50 mg PO BID [facility] Last Admin: 11/23/16 09:11 Dose: 50 mg Vitamin B Complex/Vit C/Folic Acid (Nephro-Ajay) 1 tab PO DAILY [facility] Last Admin: 11/23/16 09:10 Dose: 1 tab - Labs Labs: 11/22/16 14:48 11/22/16 14:48 PT 17.2 Seconds (9.8-13.1) H 11/19/16 06:00 INR 1.5 (0.9-1.2) H 11/19/16 06:00 APTT 55.8 Seconds (25.6-37.1) H 11/19/16 06:00 Assessment and Plan - Assessment and Plan (Free Text) Plan: Patient seen and examined. Wound examined, washed out and wet to dry normal saline dressing applied. Wound appearance is essentially unchanged. There is purulent discharge, but no frankly necrotic tissue. I took out several more stitches to facilitate drainage and packing. There is no foul smell, skin erythema or cellulitis. Patient remains clinically stable with no systemic signs of infection. WBC elevation noted. Continue wound care, antibiotics and supportive treatment. Will monitor right BKA wound progress and plan accordingly.
[2016-11-23] MEDS: TIGECYCLINE IVPB SCH ×2 (09:10→20:47)
[2016-11-23] MEDS: Multivitamin Vitamin B Complex (Nephro-Vite) Tab PO SCH (09:10)
[2016-11-23] MEDS: SODIUM CHLORIDE 0.9% IVPB SCH ×2 (09:10→20:47)
[2016-11-23] MEDS: Pantoprazole 40 mg EC Tab PO SCH (09:11)
[2016-11-23] MEDS: Insulin Lispro (humaLOG) 100 Units/ml Inj SC SCH ×3 (09:12→17:42)
[2016-11-23] MEDS: Lidocaine 5% Patch TD SCH (09:13)
[2016-11-23] MEDS: Santyl Collagenase OINTMENT TOP SCH (09:14)
--- NOTE | 2016-11-23 18:03 | CP.PCM.PN ---
Subjective - Date & Time of Evaluation Date of Evaluation: 11/23/16 Time of Evaluation: 17:58 - Subjective Subjective: Patient is having some right BK site pain. Dressing changed by Dr. Mccormack. He noted some purulence but no odor or krystal pus. He opened up a few sutures to facilitate drainage. Culture results reviewed again with Dr. Lemon. He has confirmed with microbiology that the Klebsiella pn. is sensitive to both gentamicin and tigacycline, both of which are bacteriocidal. She continues on iv gentamicin , tigacycline, meropenem, and daptomycin plus oral fluconazole. DM controlled on current insulin regimen. She is eating, and I have increased her protein allowance to 90 gm per day to facilitate healing. S/P transfusions for anemia. Tolerating hemodialysis MWF. Objective - Vital Signs/Intake and Output Vital Signs (last 24 hours): Temp Pulse Resp BP Pulse Ox 98.4 F 110 H 17 114/61 95 11/23/16 16:45 11/23/16 16:45 11/23/16 16:45 11/23/16 16:45 11/23/16 16:45 Intake and Output: 11/23/16 11/23/16 06:59 18:59 Intake Total 560 Balance 560 - Medications Medications: Current Medications Acetaminophen (Tylenol 325mg Tab) 650 mg PO Q4 PRN PRN Reason: Fever >100.4 F Last Admin: 11/21/16 00:44 Dose: 650 mg Acetaminophen (Tylenol 325mg Tab) 650 mg PO Q4 PRN PRN Reason: Pain, moderate (4-7) Last Admin: 09/16/16 22:34 Dose: 650 mg Albuterol Sulfate (Albuterol 0.083% Inhal Barbie (2.5 Mg/3 Ml) Ud) 2.5 mg INH RQ4 PRN PRN Reason: Shortness of Breath Albuterol/Ipratropium (Duoneb 3 Mg/0.5 Mg (3 Ml) Ud) 3 ml INH RQ4 PRN PRN Reason: Shortness of Breath Last Admin: 11/11/16 07:39 Dose: 3 ml Apixaban (Eliquis) 5 mg PO BID [facility] PRN Reason: Protocol Last Admin: 11/23/16 17:42 Dose: 5 mg Aspirin (Ecotrin) 81 mg PO DAILY [facility] Last Admin: 11/23/16 09:12 Dose: 81 mg Atorvastatin Calcium (Lipitor) 40 mg PO DAILY [facility] Last Admin: 11/23/16 09:11 Dose: 40 mg Benzonatate (Tessalon Perles) 200 mg PO TID PRN PRN Reason: Cough Last Admin: 11/21/16 09:06 Dose: 200 mg Calcium Carbonate (Oscal) 500 mg PO BIDWM [facility] Last Admin: 11/23/16 17:43 Dose: 500 mg Cinacalcet (Sensipar) 30 mg PO DAILY [facility] Last Admin: 11/23/16 09:11 Dose: 30 mg Collagenase (Santyl) 1 applic TOP DAILY [facility] Last Admin: 11/23/16 09:14 Dose: 1 applic Diphenhydramine HCl (Benadryl) 25 mg PO Q6 PRN PRN Reason: Itching / Pruritus Last Admin: 11/12/16 08:34 Dose: 25 mg Epoetin Tha (Procrit) 20,000 unit IV MWF [facility] Last Admin: 11/22/16 15:54 Dose: Not Given Ergocalciferol (Drisdol 50,000 Intl Units Cap) 1 cap PO WED [facility] Last Admin: 11/20/16 10:00 Dose: 1 cap Fluconazole (Diflucan) 100 mg PO DAILY [facility] Last Admin: 11/23/16 09:12 Dose: 100 mg Gabapentin (Neurontin) 300 mg PO TID [facility] Last Admin: 11/23/16 17:42 Dose: 300 mg Hydrocortisone (Anusol-Hc) 1 applic [place] BID PRN PRN Reason: Inflammation Hydromorphone HCl (Dilaudid) 1 mg IVP Q2H PRN PRN Reason: Pain, severe (8-10) Last Admin: 11/23/16 17:41 Dose: 1 mg Meropenem 500 mg/ Sodium (Chloride) 100 mls @ 100 mls/hr IVPB DAILY@0100 [facility] Last Admin: 11/23/16 00:31 Dose: 100 mls/hr Gentamicin Sulfate/Sodium Chloride (Gentamicin 100mg/100ml Ns) 100 mg in 100 mls @ 100 mls/hr IVPB MWF [facility] Last Admin: 11/22/16 15:52 Dose: 100 mls/hr Tigecycline 25 mg/ Sodium (Chloride) 100 mls @ 100 mls/hr IVPB Q12 [facility] Last Admin: 11/23/16 09:10 Dose: 100 mls/hr Sodium Chloride (Sodium Chloride 0.9%) 1,000 mls @ 10 mls/hr IV .Q24H [facility] Sodium Chloride (Sodium Chloride 0.45%) 500 mls @ 10 mls/hr IV .Q24H [facility] Last Admin: 11/21/16 16:16 Dose: 10 mls/hr Daptomycin 650 mg/ Sodium (Chloride) 100 mls @ 100 mls/hr IVPB MWF@1800 [facility] Stop: 12/16/16 18:59 Last Admin: 11/22/16 18:49 Dose: 100 mls/hr Insulin Detemir (Levemir) 6 units SC HS [facility] Last Admin: 11/22/16 21:25 Dose: 6 units Insulin Human Lispro (Humalog) 4 units SC AC [facility] Last Admin: 11/23/16 17:42 Dose: 4 units Lidocaine (Lidoderm) 1 ea TD DAILY [facility] Last Admin: 11/23/16 09:13 Dose: 1 ea Nystatin (Nystop Topical Powder) 1 applic TOP BID [facility] Last Admin: 11/23/16 17:51 Dose: Not Given Ondansetron HCl (Zofran Inj) 4 mg IVP Q6 PRN PRN Reason: Nausea/Vomiting Last Admin: 09/19/16 10:26 Dose: 4 mg Pantoprazole Sodium (Protonix Ec Tab) 40 mg PO DAILY [facility] Last Admin: 11/23/16 09:11 Dose: 40 mg Sevelamer HCl (Renagel) 1,600 mg PO TID [facility] Last Admin: 11/23/16 17:42 Dose: 1,600 mg Topiramate (Topamax) 50 mg PO BID [facility] Last Admin: 11/23/16 17:43 Dose: 50 mg Vitamin B Complex/Vit C/Folic Acid (Nephro-Ajay) 1 tab PO DAILY [facility] Last Admin: 11/23/16 09:10 Dose: 1 tab - Labs Labs: 11/22/16 14:48 11/22/16 14:48 PT 17.2 Seconds (9.8-13.1) H 11/19/16 06:00 INR 1.5 (0.9-1.2) H 11/19/16 06:00 APTT 55.8 Seconds (25.6-37.1) H 11/19/16 06:00 - Constitutional Appears: No Acute Distress - Head Exam Head Exam: NORMAL INSPECTION - Eye Exam Eye Exam: Normal appearance - ENT Exam ENT Exam: Mucous Membranes Moist - Neck Exam Neck Exam: Normal Inspection - Respiratory Exam Respiratory Exam: Clear to Ausculation Bilateral, NORMAL BREATHING PATTERN - Cardiovascular Exam Cardiovascular Exam: REGULAR RHYTHM, +S1, +S2 - GI/Abdominal Exam GI & Abdominal Exam: Soft - Extremities Exam Additional comments: Dressing dry and intact R residual limb. Left femoral PICC line intact. - Back Exam Back Exam: NORMAL INSPECTION - Neurological Exam Neurological Exam: Alert, Oriented x3 - Psychiatric Exam Psychiatric exam: Normal Affect, Normal Mood - Skin Skin Exam: Dry, Normal Color, Warm Assessment and Plan (1) Status post below knee amputation of right lower extremity Status: Acute (2) ESRD (end stage renal disease) on dialysis Status: Chronic (3) DM type 2 (diabetes mellitus, type 2) Status: Chronic (4) Coagulopathy Status: Chronic (5) Peripheral arterial occlusive disease Status: Chronic - Assessment and Plan (Free Text) Assessment: PATIENT IS CLINICALLY STABLE. WILL CONTINUE METICULOUS WOUND CARE AND IV ANTIBIOTICS. CONTINUE ANTICOAGULATION WITH ELIQUIS AND ASA TO ACHIEVE GOOD BLOOD FLOW TO THE WOUND AREA.
[2016-11-23] MEDS: Insulin Detemir 100 Units/ml Inj SC SCH (22:12)
--- NOTE | 2016-11-23 22:14 | CP.PCM.PN ---
Subjective - Date & Time of Evaluation Date of Evaluation: 11/23/16 Time of Evaluation: 19:10 - Subjective Subjective: Patient is suffering from some pain in the stump of the Right BKA, with some discharge from the wound there. She is having tachycardia. There is no seizures on Po Topamax 50 mg BID. She is receiving hemodialysis for her ESRD. She is suffering from DM. She is receiving Antibiotics for her Klebsiella Pneumonia infection. Objective - Vital Signs/Intake and Output Vital Signs (last 24 hours): Temp Pulse Resp BP Pulse Ox 98.4 F 110 H 17 114/61 95 11/23/16 16:45 11/23/16 17:00 11/23/16 17:00 11/23/16 17:00 11/23/16 17:00 Intake and Output: 11/23/16 11/24/16 18:59 06:59 Intake Total 1320 Balance 1320 - Medications Medications: Current Medications Acetaminophen (Tylenol 325mg Tab) 650 mg PO Q4 PRN PRN Reason: Fever >100.4 F Last Admin: 11/21/16 00:44 Dose: 650 mg Acetaminophen (Tylenol 325mg Tab) 650 mg PO Q4 PRN PRN Reason: Pain, moderate (4-7) Last Admin: 09/16/16 22:34 Dose: 650 mg Albuterol Sulfate (Albuterol 0.083% Inhal Barbie (2.5 Mg/3 Ml) Ud) 2.5 mg INH RQ4 PRN PRN Reason: Shortness of Breath Albuterol/Ipratropium (Duoneb 3 Mg/0.5 Mg (3 Ml) Ud) 3 ml INH RQ4 PRN PRN Reason: Shortness of Breath Last Admin: 11/11/16 07:39 Dose: 3 ml Apixaban (Eliquis) 5 mg PO BID [facility] PRN Reason: Protocol Last Admin: 11/23/16 17:42 Dose: 5 mg Aspirin (Ecotrin) 81 mg PO DAILY [facility] Last Admin: 11/23/16 09:12 Dose: 81 mg Atorvastatin Calcium (Lipitor) 40 mg PO DAILY [facility] Last Admin: 11/23/16 09:11 Dose: 40 mg Benzonatate (Tessalon Perles) 200 mg PO TID PRN PRN Reason: Cough Last Admin: 11/21/16 09:06 Dose: 200 mg Calcium Carbonate (Oscal) 500 mg PO BIDWM [facility] Last Admin: 11/23/16 17:43 Dose: 500 mg Cinacalcet (Sensipar) 30 mg PO DAILY [facility] Last Admin: 11/23/16 09:11 Dose: 30 mg Collagenase (Santyl) 1 applic TOP DAILY [facility] Last Admin: 11/23/16 09:14 Dose: 1 applic Diphenhydramine HCl (Benadryl) 25 mg PO Q6 PRN PRN Reason: Itching / Pruritus Last Admin: 11/12/16 08:34 Dose: 25 mg Epoetin Tha (Procrit) 20,000 unit IV MWF [facility] Last Admin: 11/22/16 15:54 Dose: Not Given Ergocalciferol (Drisdol 50,000 Intl Units Cap) 1 cap PO WED [facility] Last Admin: 11/20/16 10:00 Dose: 1 cap Fluconazole (Diflucan) 100 mg PO DAILY [facility] Last Admin: 11/23/16 09:12 Dose: 100 mg Gabapentin (Neurontin) 300 mg PO TID [facility] Last Admin: 11/23/16 17:42 Dose: 300 mg Hydrocortisone (Anusol-Hc) 1 applic [place] BID PRN PRN Reason: Inflammation Hydromorphone HCl (Dilaudid) 1 mg IVP Q2H PRN PRN Reason: Pain, severe (8-10) Last Admin: 11/23/16 19:55 Dose: 1 mg Meropenem 500 mg/ Sodium (Chloride) 100 mls @ 100 mls/hr IVPB DAILY@0100 [facility] Last Admin: 11/23/16 00:31 Dose: 100 mls/hr Gentamicin Sulfate/Sodium Chloride (Gentamicin 100mg/100ml Ns) 100 mg in 100 mls @ 100 mls/hr IVPB MWF [facility] Last Admin: 11/22/16 15:52 Dose: 100 mls/hr Tigecycline 25 mg/ Sodium (Chloride) 100 mls @ 100 mls/hr IVPB Q12 [facility] Last Admin: 11/23/16 20:47 Dose: 100 mls/hr Sodium Chloride (Sodium Chloride 0.45%) 500 mls @ 10 mls/hr IV .Q24H [facility] Last Admin: 11/23/16 18:18 Dose: 10 mls/hr Daptomycin 650 mg/ Sodium (Chloride) 100 mls @ 100 mls/hr IVPB MWF@1800 [facility] Stop: 12/16/16 18:59 Last Admin: 11/22/16 18:49 Dose: 100 mls/hr Insulin Detemir (Levemir) 6 units SC HS [facility] Last Admin: 11/22/16 21:25 Dose: 6 units Insulin Human Lispro (Humalog) 4 units SC AC [facility] Last Admin: 11/23/16 17:42 Dose: 4 units Lidocaine (Lidoderm) 1 ea TD DAILY [facility] Last Admin: 11/23/16 09:13 Dose: 1 ea Nystatin (Nystop Topical Powder) 1 applic TOP BID [facility] Last Admin: 11/23/16 17:51 Dose: Not Given Ondansetron HCl (Zofran Inj) 4 mg IVP Q6 PRN PRN Reason: Nausea/Vomiting Last Admin: 09/19/16 10:26 Dose: 4 mg Pantoprazole Sodium (Protonix Ec Tab) 40 mg PO DAILY [facility] Last Admin: 11/23/16 09:11 Dose: 40 mg Sevelamer HCl (Renagel) 1,600 mg PO TID [facility] Last Admin: 11/23/16 17:42 Dose: 1,600 mg Topiramate (Topamax) 50 mg PO BID [facility] Last Admin: 11/23/16 17:43 Dose: 50 mg Vitamin B Complex/Vit C/Folic Acid (Nephro-Ajay) 1 tab PO DAILY [facility] Last Admin: 11/23/16 09:10 Dose: 1 tab - Labs Labs: 11/22/16 14:48 11/22/16 14:48 PT 17.2 Seconds (9.8-13.1) H 11/19/16 06:00 INR 1.5 (0.9-1.2) H 11/19/16 06:00 APTT 55.8 Seconds (25.6-37.1) H 11/19/16 06:00 Assessment and Plan (1) Diabetes Status: Chronic (2) ESRD (end stage renal disease) Status: Chronic (3) Cellulitis of leg Status: Chronic (4) Hyperlipidemia Status: Chronic (5) Back pain Status: Acute (6) Bacteremia due to Gram-negative bacteria Status: Acute (7) Diabetes mellitus type 2 with peripheral artery disease Status: Acute (8) PVD (peripheral vascular disease) Status: Acute (9) Osteomyelitis of right leg Status: Acute
[2016-11-24] MEDS: Meropenem 500 MG in Sodium Chloride 0.9% 100 ML IVPB SCH (00:37)
[2016-11-24] MEDS: Lidocaine 5% Patch TD SCH (08:47)
[2016-11-24] MEDS: TIGECYCLINE IVPB SCH ×2 (08:49→21:21)
[2016-11-24] MEDS: SODIUM CHLORIDE 0.9% IVPB SCH ×2 (08:49→21:21)
[2016-11-24] MEDS: Multivitamin Vitamin B Complex (Nephro-Vite) Tab PO SCH (08:50)
[2016-11-24] MEDS: Pantoprazole 40 mg EC Tab PO SCH (08:51)
[2016-11-24] MEDS: Insulin Lispro (humaLOG) 100 Units/ml Inj SC SCH ×3 (08:52→17:07)
[2016-11-24] MEDS: Santyl Collagenase OINTMENT TOP SCH (08:53)
--- NOTE | 2016-11-24 11:36 | CP.PCM.PN ---
Subjective - Date & Time of Evaluation Date of Evaluation: 11/24/16 Time of Evaluation: 11:34 - Subjective Subjective: Surgery: Dr. Mccormack Pt seen and examined. Resting comfortably in bed. No acute events overnight. Objective - Vital Signs/Intake and Output Vital Signs (last 24 hours): Temp Pulse Resp BP Pulse Ox 97.7 F 109 H 18 152/84 H 96 11/24/16 07:28 11/24/16 07:28 11/24/16 07:28 11/24/16 07:28 11/24/16 07:28 Intake and Output: 11/24/16 11/24/16 06:59 18:59 Intake Total 500 Balance 500 - Medications Medications: Current Medications Acetaminophen (Tylenol 325mg Tab) 650 mg PO Q4 PRN PRN Reason: Fever >100.4 F Last Admin: 11/21/16 00:44 Dose: 650 mg Acetaminophen (Tylenol 325mg Tab) 650 mg PO Q4 PRN PRN Reason: Pain, moderate (4-7) Last Admin: 09/16/16 22:34 Dose: 650 mg Albuterol Sulfate (Albuterol 0.083% Inhal Barbie (2.5 Mg/3 Ml) Ud) 2.5 mg INH RQ4 PRN PRN Reason: Shortness of Breath Albuterol/Ipratropium (Duoneb 3 Mg/0.5 Mg (3 Ml) Ud) 3 ml INH RQ4 PRN PRN Reason: Shortness of Breath Last Admin: 11/11/16 07:39 Dose: 3 ml Apixaban (Eliquis) 5 mg PO BID [facility] PRN Reason: Protocol Last Admin: 11/24/16 08:50 Dose: 5 mg Aspirin (Ecotrin) 81 mg PO DAILY [facility] Last Admin: 11/24/16 08:48 Dose: 81 mg Atorvastatin Calcium (Lipitor) 40 mg PO DAILY [facility] Last Admin: 11/24/16 08:51 Dose: 40 mg Benzonatate (Tessalon Perles) 200 mg PO TID PRN PRN Reason: Cough Last Admin: 11/21/16 09:06 Dose: 200 mg Calcium Carbonate (Oscal) 500 mg PO BIDWM [facility] Last Admin: 11/24/16 08:51 Dose: 500 mg Cinacalcet (Sensipar) 30 mg PO DAILY [facility] Last Admin: 11/24/16 08:48 Dose: 30 mg Collagenase (Santyl) 1 applic TOP DAILY [facility] Last Admin: 11/24/16 08:53 Dose: Not Given Diphenhydramine HCl (Benadryl) 25 mg PO Q6 PRN PRN Reason: Itching / Pruritus Last Admin: 11/12/16 08:34 Dose: 25 mg Epoetin Tha (Procrit) 20,000 unit IV MWF [facility] Last Admin: 11/22/16 15:54 Dose: Not Given Ergocalciferol (Drisdol 50,000 Intl Units Cap) 1 cap PO WED [facility] Last Admin: 11/20/16 10:00 Dose: 1 cap Fluconazole (Diflucan) 100 mg PO DAILY [facility] Last Admin: 11/24/16 08:47 Dose: 100 mg Gabapentin (Neurontin) 300 mg PO TID [facility] Last Admin: 11/24/16 08:47 Dose: 300 mg Hydrocortisone (Anusol-Hc) 1 applic [place] BID PRN PRN Reason: Inflammation Hydromorphone HCl (Dilaudid) 1 mg IVP Q2H PRN PRN Reason: Pain, severe (8-10) Last Admin: 11/24/16 11:13 Dose: 1 mg Meropenem 500 mg/ Sodium (Chloride) 100 mls @ 100 mls/hr IVPB DAILY@0100 [facility] Last Admin: 11/24/16 00:37 Dose: 100 mls/hr Gentamicin Sulfate/Sodium Chloride (Gentamicin 100mg/100ml Ns) 100 mg in 100 mls @ 100 mls/hr IVPB MWF [facility] Last Admin: 11/22/16 15:52 Dose: 100 mls/hr Tigecycline 25 mg/ Sodium (Chloride) 100 mls @ 100 mls/hr IVPB Q12 [facility] Last Admin: 11/24/16 08:49 Dose: 100 mls/hr Sodium Chloride (Sodium Chloride 0.45%) 500 mls @ 10 mls/hr IV .Q24H [facility] Last Admin: 11/23/16 18:18 Dose: 10 mls/hr Daptomycin 650 mg/ Sodium (Chloride) 100 mls @ 100 mls/hr IVPB MWF@1800 [facility] Stop: 12/16/16 18:59 Last Admin: 11/22/16 18:49 Dose: 100 mls/hr Insulin Detemir (Levemir) 6 units SC HS [facility] Last Admin: 11/23/16 22:12 Dose: 6 units Insulin Human Lispro (Humalog) 4 units SC AC [facility] Last Admin: 11/24/16 11:14 Dose: 4 units Lidocaine (Lidoderm) 1 ea TD DAILY [facility] Last Admin: 11/24/16 08:47 Dose: 1 ea Nystatin (Nystop Topical Powder) 1 applic TOP BID [facility] Last Admin: 11/24/16 11:29 Dose: 1 applic Ondansetron HCl (Zofran Inj) 4 mg IVP Q6 PRN PRN Reason: Nausea/Vomiting Last Admin: 09/19/16 10:26 Dose: 4 mg Pantoprazole Sodium (Protonix Ec Tab) 40 mg PO DAILY [facility] Last Admin: 11/24/16 08:51 Dose: 40 mg Sevelamer HCl (Renagel) 1,600 mg PO TID [facility] Last Admin: 11/24/16 08:47 Dose: 1,600 mg Topiramate (Topamax) 50 mg PO BID [facility] Last Admin: 11/24/16 08:48 Dose: 50 mg Vitamin B Complex/Vit C/Folic Acid (Nephro-Ajay) 1 tab PO DAILY [facility] Last Admin: 11/24/16 08:50 Dose: 1 tab - Labs Labs: 11/22/16 14:48 11/22/16 14:48 PT 17.2 Seconds (9.8-13.1) H 11/19/16 06:00 INR 1.5 (0.9-1.2) H 11/19/16 06:00 APTT 55.8 Seconds (25.6-37.1) H 11/19/16 06:00 - Constitutional Appears: Non-toxic, No Acute Distress - Head Exam Head Exam: ATRAUMATIC, NORMOCEPHALIC - Eye Exam Eye Exam: EOMI - ENT Exam ENT Exam: Mucous Membranes Moist - Neck Exam Neck Exam: Full ROM - Respiratory Exam Respiratory Exam: NORMAL BREATHING PATTERN. absent: Accessory Muscle Use, Respiratory Distress - Extremities Exam Additional comments: R leg, s/p BKA w. revision and washout, thick brown drainage expressed on palpations, no odor, tender, bleeding noted at wound edges. - Neurological Exam Neurological Exam: Alert, Awake, Oriented x3 Assessment and Plan - Assessment and Plan (Free Text) Assessment: 46F s/p R BKA (10/01) w/revision and wash out (11/19) -c/w local wound care -c/w abx -will continue to follwo closely -will d/w attending Audi PGY3
--- NOTE | 2016-11-24 12:42 | CP.PCM.PN ---
Subjective - Date & Time of Evaluation Date of Evaluation: 11/24/16 Time of Evaluation: 12:39 - Subjective Subjective: Note by Dr. Audi kwok. Patient is resting comfortably in recliner. No fevers. No cough or dyspnea. Continues on iv antibiotics + po fluconazole. DM controlled. For hemodialysis tomorrow. Will recheck CBC and CMP then (watching LFT's while on daptomycin). Objective - Vital Signs/Intake and Output Vital Signs (last 24 hours): Temp Pulse Resp BP Pulse Ox 97.7 F 109 H 18 152/84 H 96 11/24/16 07:28 11/24/16 07:28 11/24/16 07:28 11/24/16 07:28 11/24/16 07:28 Intake and Output: 11/24/16 11/24/16 06:59 18:59 Intake Total 500 Balance 500 - Medications Medications: Current Medications Acetaminophen (Tylenol 325mg Tab) 650 mg PO Q4 PRN PRN Reason: Fever >100.4 F Last Admin: 11/21/16 00:44 Dose: 650 mg Acetaminophen (Tylenol 325mg Tab) 650 mg PO Q4 PRN PRN Reason: Pain, moderate (4-7) Last Admin: 09/16/16 22:34 Dose: 650 mg Albuterol Sulfate (Albuterol 0.083% Inhal Barbie (2.5 Mg/3 Ml) Ud) 2.5 mg INH RQ4 PRN PRN Reason: Shortness of Breath Albuterol/Ipratropium (Duoneb 3 Mg/0.5 Mg (3 Ml) Ud) 3 ml INH RQ4 PRN PRN Reason: Shortness of Breath Last Admin: 11/11/16 07:39 Dose: 3 ml Apixaban (Eliquis) 5 mg PO BID [facility] PRN Reason: Protocol Last Admin: 11/24/16 08:50 Dose: 5 mg Aspirin (Ecotrin) 81 mg PO DAILY [facility] Last Admin: 11/24/16 08:48 Dose: 81 mg Atorvastatin Calcium (Lipitor) 40 mg PO DAILY [facility] Last Admin: 11/24/16 08:51 Dose: 40 mg Benzonatate (Tessalon Perles) 200 mg PO TID PRN PRN Reason: Cough Last Admin: 11/21/16 09:06 Dose: 200 mg Calcium Carbonate (Oscal) 500 mg PO BIDWM [facility] Last Admin: 11/24/16 08:51 Dose: 500 mg Cinacalcet (Sensipar) 30 mg PO DAILY [facility] Last Admin: 11/24/16 08:48 Dose: 30 mg Collagenase (Santyl) 1 applic TOP DAILY [facility] Last Admin: 11/24/16 08:53 Dose: Not Given Diphenhydramine HCl (Benadryl) 25 mg PO Q6 PRN PRN Reason: Itching / Pruritus Last Admin: 11/12/16 08:34 Dose: 25 mg Epoetin Tha (Procrit) 20,000 unit IV MWF [facility] Last Admin: 11/22/16 15:54 Dose: Not Given Ergocalciferol (Drisdol 50,000 Intl Units Cap) 1 cap PO WED [facility] Last Admin: 11/20/16 10:00 Dose: 1 cap Fluconazole (Diflucan) 100 mg PO DAILY [facility] Last Admin: 11/24/16 08:47 Dose: 100 mg Gabapentin (Neurontin) 300 mg PO TID [facility] Last Admin: 11/24/16 12:21 Dose: 300 mg Hydrocortisone (Anusol-Hc) 1 applic [place] BID PRN PRN Reason: Inflammation Hydromorphone HCl (Dilaudid) 1 mg IVP Q2H PRN PRN Reason: Pain, severe (8-10) Last Admin: 11/24/16 11:13 Dose: 1 mg Meropenem 500 mg/ Sodium (Chloride) 100 mls @ 100 mls/hr IVPB DAILY@0100 [facility] Last Admin: 11/24/16 00:37 Dose: 100 mls/hr Gentamicin Sulfate/Sodium Chloride (Gentamicin 100mg/100ml Ns) 100 mg in 100 mls @ 100 mls/hr IVPB MWF [facility] Last Admin: 11/22/16 15:52 Dose: 100 mls/hr Tigecycline 25 mg/ Sodium (Chloride) 100 mls @ 100 mls/hr IVPB Q12 [facility] Last Admin: 11/24/16 08:49 Dose: 100 mls/hr Sodium Chloride (Sodium Chloride 0.45%) 500 mls @ 10 mls/hr IV .Q24H [facility] Last Admin: 11/23/16 18:18 Dose: 10 mls/hr Daptomycin 650 mg/ Sodium (Chloride) 100 mls @ 100 mls/hr IVPB MWF@1800 [facility] Stop: 12/16/16 18:59 Last Admin: 11/22/16 18:49 Dose: 100 mls/hr Insulin Detemir (Levemir) 6 units SC HS [facility] Last Admin: 11/23/16 22:12 Dose: 6 units Insulin Human Lispro (Humalog) 4 units SC AC [facility] Last Admin: 11/24/16 11:14 Dose: 4 units Lidocaine (Lidoderm) 1 ea TD DAILY [facility] Last Admin: 11/24/16 08:47 Dose: 1 ea Nystatin (Nystop Topical Powder) 1 applic TOP BID [facility] Last Admin: 11/24/16 11:29 Dose: 1 applic Ondansetron HCl (Zofran Inj) 4 mg IVP Q6 PRN PRN Reason: Nausea/Vomiting Last Admin: 09/19/16 10:26 Dose: 4 mg Pantoprazole Sodium (Protonix Ec Tab) 40 mg PO DAILY [facility] Last Admin: 11/24/16 08:51 Dose: 40 mg Sevelamer HCl (Renagel) 1,600 mg PO TID [facility] Last Admin: 11/24/16 12:21 Dose: 1,600 mg Topiramate (Topamax) 50 mg PO BID [facility] Last Admin: 11/24/16 08:48 Dose: 50 mg Vitamin B Complex/Vit C/Folic Acid (Nephro-Ajay) 1 tab PO DAILY [facility] Last Admin: 11/24/16 08:50 Dose: 1 tab - Labs Labs: 11/22/16 14:48 11/22/16 14:48 PT 17.2 Seconds (9.8-13.1) H 11/19/16 06:00 INR 1.5 (0.9-1.2) H 11/19/16 06:00 APTT 55.8 Seconds (25.6-37.1) H 11/19/16 06:00 - Constitutional Appears: No Acute Distress - Head Exam Head Exam: NORMAL INSPECTION - ENT Exam ENT Exam: Mucous Membranes Moist - Respiratory Exam Respiratory Exam: Clear to Ausculation Bilateral, NORMAL BREATHING PATTERN - Cardiovascular Exam Cardiovascular Exam: REGULAR RHYTHM, +S1, +S2 - GI/Abdominal Exam GI & Abdominal Exam: Soft - Extremities Exam Additional comments: Dressing right BK site dry and intact. L femoral vein PICC line intact. - Back Exam Back Exam: NORMAL INSPECTION - Neurological Exam Neurological Exam: Alert, Awake, Oriented x3 - Psychiatric Exam Psychiatric exam: Normal Affect, Normal Mood - Skin Skin Exam: Dry, Normal Color, Warm Assessment and Plan (1) Status post below knee amputation of right lower extremity Assessment & Plan: Continue present wound care, antibiotics, high protein diet, and mobilization to maximize chance for wound healing. Status: Acute (2) ESRD (end stage renal disease) on dialysis Status: Chronic (3) DM type 2 (diabetes mellitus, type 2) Status: Chronic (4) Coagulopathy Status: Chronic (5) Peripheral arterial occlusive disease Status: Chronic
--- NOTE | 2016-11-24 15:57 | CP.PCM.PN ---
Subjective - Date & Time of Evaluation Date of Evaluation: 11/24/16 Time of Evaluation: 15:52 - Subjective Subjective: Tachycardia and borderline high BP is seen. No Fever, no distress no significant pain are reported. She has a Klebsiella Pneumonia infection in the wound and she is receiving multiple antibiotics. There is no reported seizures, she is on Topamax 50 mg, BID Patient is receiving HD for her ESRD. Objective - Vital Signs/Intake and Output Vital Signs (last 24 hours): Temp Pulse Resp BP Pulse Ox 97.7 F 109 H 18 152/84 H 96 11/24/16 07:28 11/24/16 07:28 11/24/16 07:28 11/24/16 07:28 11/24/16 07:28 Intake and Output: 11/24/16 11/24/16 06:59 18:59 Intake Total 500 Balance 500 - Medications Medications: Current Medications Acetaminophen (Tylenol 325mg Tab) 650 mg PO Q4 PRN PRN Reason: Fever >100.4 F Last Admin: 11/21/16 00:44 Dose: 650 mg Acetaminophen (Tylenol 325mg Tab) 650 mg PO Q4 PRN PRN Reason: Pain, moderate (4-7) Last Admin: 09/16/16 22:34 Dose: 650 mg Albuterol Sulfate (Albuterol 0.083% Inhal Barbie (2.5 Mg/3 Ml) Ud) 2.5 mg INH RQ4 PRN PRN Reason: Shortness of Breath Albuterol/Ipratropium (Duoneb 3 Mg/0.5 Mg (3 Ml) Ud) 3 ml INH RQ4 PRN PRN Reason: Shortness of Breath Last Admin: 11/11/16 07:39 Dose: 3 ml Apixaban (Eliquis) 5 mg PO BID [facility] PRN Reason: Protocol Last Admin: 11/24/16 08:50 Dose: 5 mg Aspirin (Ecotrin) 81 mg PO DAILY [facility] Last Admin: 11/24/16 08:48 Dose: 81 mg Atorvastatin Calcium (Lipitor) 40 mg PO DAILY [facility] Last Admin: 11/24/16 08:51 Dose: 40 mg Benzonatate (Tessalon Perles) 200 mg PO TID PRN PRN Reason: Cough Last Admin: 11/21/16 09:06 Dose: 200 mg Calcium Carbonate (Oscal) 500 mg PO BIDWM [facility] Last Admin: 11/24/16 08:51 Dose: 500 mg Cinacalcet (Sensipar) 30 mg PO DAILY [facility] Last Admin: 11/24/16 08:48 Dose: 30 mg Collagenase (Santyl) 1 applic TOP DAILY [facility] Last Admin: 11/24/16 08:53 Dose: Not Given Diphenhydramine HCl (Benadryl) 25 mg PO Q6 PRN PRN Reason: Itching / Pruritus Last Admin: 11/12/16 08:34 Dose: 25 mg Epoetin Tha (Procrit) 20,000 unit IV MWF [facility] Last Admin: 11/22/16 15:54 Dose: Not Given Ergocalciferol (Drisdol 50,000 Intl Units Cap) 1 cap PO WED [facility] Last Admin: 11/20/16 10:00 Dose: 1 cap Fluconazole (Diflucan) 100 mg PO DAILY [facility] Last Admin: 11/24/16 08:47 Dose: 100 mg Gabapentin (Neurontin) 300 mg PO TID [facility] Last Admin: 11/24/16 12:21 Dose: 300 mg Hydrocortisone (Anusol-Hc) 1 applic [place] BID PRN PRN Reason: Inflammation Hydromorphone HCl (Dilaudid) 1 mg IVP Q2H PRN PRN Reason: Pain, severe (8-10) Last Admin: 11/24/16 14:11 Dose: 1 mg Meropenem 500 mg/ Sodium (Chloride) 100 mls @ 100 mls/hr IVPB DAILY@0100 [facility] Last Admin: 11/24/16 00:37 Dose: 100 mls/hr Gentamicin Sulfate/Sodium Chloride (Gentamicin 100mg/100ml Ns) 100 mg in 100 mls @ 100 mls/hr IVPB MWF [facility] Last Admin: 11/22/16 15:52 Dose: 100 mls/hr Tigecycline 25 mg/ Sodium (Chloride) 100 mls @ 100 mls/hr IVPB Q12 [facility] Last Admin: 11/24/16 08:49 Dose: 100 mls/hr Sodium Chloride (Sodium Chloride 0.45%) 500 mls @ 10 mls/hr IV .Q24H [facility] Last Admin: 11/23/16 18:18 Dose: 10 mls/hr Daptomycin 650 mg/ Sodium (Chloride) 100 mls @ 100 mls/hr IVPB MWF@1800 [facility] Stop: 12/16/16 18:59 Last Admin: 11/22/16 18:49 Dose: 100 mls/hr Insulin Detemir (Levemir) 6 units SC HS [facility] Last Admin: 11/23/16 22:12 Dose: 6 units Insulin Human Lispro (Humalog) 4 units SC AC [facility] Last Admin: 11/24/16 11:14 Dose: 4 units Lidocaine (Lidoderm) 1 ea TD DAILY [facility] Last Admin: 11/24/16 08:47 Dose: 1 ea Nystatin (Nystop Topical Powder) 1 applic TOP BID [facility] Last Admin: 11/24/16 11:29 Dose: 1 applic Ondansetron HCl (Zofran Inj) 4 mg IVP Q6 PRN PRN Reason: Nausea/Vomiting Last Admin: 09/19/16 10:26 Dose: 4 mg Pantoprazole Sodium (Protonix Ec Tab) 40 mg PO DAILY [facility] Last Admin: 11/24/16 08:51 Dose: 40 mg Sevelamer HCl (Renagel) 1,600 mg PO TID [facility] Last Admin: 11/24/16 12:21 Dose: 1,600 mg Topiramate (Topamax) 50 mg PO BID [facility] Last Admin: 11/24/16 08:48 Dose: 50 mg Vitamin B Complex/Vit C/Folic Acid (Nephro-Ajay) 1 tab PO DAILY [facility] Last Admin: 11/24/16 08:50 Dose: 1 tab - Labs Labs: 11/22/16 14:48 11/22/16 14:48 PT 17.2 Seconds (9.8-13.1) H 11/19/16 06:00 INR 1.5 (0.9-1.2) H 11/19/16 06:00 APTT 55.8 Seconds (25.6-37.1) H 11/19/16 06:00 Assessment and Plan (1) Diabetes Status: Chronic (2) ESRD (end stage renal disease) Status: Chronic (3) Cellulitis of leg Status: Chronic (4) Hyperlipidemia Status: Chronic (5) Back pain Status: Acute (6) Bacteremia due to Gram-negative bacteria Status: Acute (7) Diabetes mellitus type 2 with peripheral artery disease Status: Acute (8) PVD (peripheral vascular disease) Status: Acute (9) Osteomyelitis of right leg Status: Acute
[2016-11-24] MEDS: Insulin Detemir 100 Units/ml Inj SC SCH (22:40)
[2016-11-25] MEDS: Meropenem 500 MG in Sodium Chloride 0.9% 100 ML IVPB SCH (00:09)
--- NOTE | 2016-11-25 01:39 | PN ---
ENDO FOLLOWUP NOTE DATE: ROOM: 681. SUBJECTIVE: This is a 46-year-old female with recent uncontrolled type 2 insulin requiring diabetes, who underwent a deep debridement of a right below-knee amputation stump area and is now being followed closely for metabolic management. Her latest chemistry shows a BUN of 74, sodium 138, potassium 5.4, chloride of 100, CO2 of 22, glucose 126, and creatinine is 7.8. So, at this time, we will continue the low dose basal and bolus insulin regimen to allow for dose equilibration and keep her on the Humalog given as 4 units subcu t.i.d. before meals and Levemir given as 6 units subcutaneously at bedtime daily as ordered. We will titrate insulin dose as indicated to optimize metabolic control. We will follow and advise accordingly. Irene Ambrose MD
--- NOTE | 2016-11-25 02:53 | PN ---
DATE: *------* ROOM: 661. SUBJECTIVE: This is a 46-year-old female with recent uncontrolled type 2 insulin requiring diabetes who underwent a recent right below knee amputation for severe osteomyelitis and since then improved clinically and metabolically as noted. However, the same right below knee amputation stump has developed severe osteomyelitis and the patient underwent severe dehydration of the aforementioned as noted. LABORATORY DATA: Her latest chemistry showed BUN of 74, sodium 138, potassium 5.4, chloride of 100, CO2 of 22, glucose 126, and creatinine 7.8. ASSESSMENT AND PLAN: So at this time, we will continue the same basal and bolus insulin regimen as given with Levemir given as 6 units subcutaneous at bedtime daily and Humalog of 40 units subcutaneous t.i.d. before meals as ordered. We will titrate incremental as indicated to optimize metabolic control. We will follow. Irene Ambrose MD
--- NOTE | 2016-11-25 08:05 | CP.PCM.PN ---
<GermainSb - Last Filed: 11/25/16 08:03> Subjective - Date & Time of Evaluation Date of Evaluation: 11/25/16 Time of Evaluation: 08:03 - Subjective Subjective: Surgery for Dr. Mccormack Pt s&eJoe NOLAN. Denies F/C/N/V/D/CP/SOB. pain controlled. Tolerating diet. Working with PT. No complaints. Objective - Vital Signs/Intake and Output Vital Signs (last 24 hours): Temp Pulse Resp BP Pulse Ox 98 F 101 H 18 90/60 L 96 11/24/16 16:24 11/24/16 16:24 11/24/16 16:24 11/24/16 16:24 11/24/16 16:24 - Medications Medications: Current Medications Acetaminophen (Tylenol 325mg Tab) 650 mg PO Q4 PRN PRN Reason: Fever >100.4 F Last Admin: 11/21/16 00:44 Dose: 650 mg Acetaminophen (Tylenol 325mg Tab) 650 mg PO Q4 PRN PRN Reason: Pain, moderate (4-7) Last Admin: 09/16/16 22:34 Dose: 650 mg Albuterol Sulfate (Albuterol 0.083% Inhal Barbie (2.5 Mg/3 Ml) Ud) 2.5 mg INH RQ4 PRN PRN Reason: Shortness of Breath Albuterol/Ipratropium (Duoneb 3 Mg/0.5 Mg (3 Ml) Ud) 3 ml INH RQ4 PRN PRN Reason: Shortness of Breath Last Admin: 11/11/16 07:39 Dose: 3 ml Apixaban (Eliquis) 5 mg PO BID [facility] PRN Reason: Protocol Last Admin: 11/24/16 17:06 Dose: 5 mg Aspirin (Ecotrin) 81 mg PO DAILY [facility] Last Admin: 11/24/16 08:48 Dose: 81 mg Atorvastatin Calcium (Lipitor) 40 mg PO DAILY [facility] Last Admin: 11/24/16 08:51 Dose: 40 mg Benzonatate (Tessalon Perles) 200 mg PO TID PRN PRN Reason: Cough Last Admin: 11/21/16 09:06 Dose: 200 mg Calcium Carbonate (Oscal) 500 mg PO BIDWM [facility] Last Admin: 11/24/16 17:06 Dose: 500 mg Cinacalcet (Sensipar) 30 mg PO DAILY [facility] Last Admin: 11/24/16 08:48 Dose: 30 mg Collagenase (Santyl) 1 applic TOP DAILY [facility] Last Admin: 11/24/16 08:53 Dose: Not Given Diphenhydramine HCl (Benadryl) 25 mg PO Q6 PRN PRN Reason: Itching / Pruritus Last Admin: 11/12/16 08:34 Dose: 25 mg Epoetin Tha (Procrit) 20,000 unit IV MWF [facility] Last Admin: 11/22/16 15:54 Dose: Not Given Ergocalciferol (Drisdol 50,000 Intl Units Cap) 1 cap PO WED [facility] Last Admin: 11/20/16 10:00 Dose: 1 cap Fluconazole (Diflucan) 100 mg PO DAILY [facility] Last Admin: 11/24/16 08:47 Dose: 100 mg Gabapentin (Neurontin) 300 mg PO TID [facility] Last Admin: 11/24/16 17:06 Dose: 300 mg Hydrocortisone (Anusol-Hc) 1 applic [place] BID PRN PRN Reason: Inflammation Hydromorphone HCl (Dilaudid) 1 mg IVP Q2H PRN PRN Reason: Pain, severe (8-10) Last Admin: 11/25/16 06:13 Dose: 1 mg Meropenem 500 mg/ Sodium (Chloride) 100 mls @ 100 mls/hr IVPB DAILY@0100 [facility] Last Admin: 11/25/16 00:09 Dose: 100 mls/hr Gentamicin Sulfate/Sodium Chloride (Gentamicin 100mg/100ml Ns) 100 mg in 100 mls @ 100 mls/hr IVPB MWF [facility] Last Admin: 11/22/16 15:52 Dose: 100 mls/hr Tigecycline 25 mg/ Sodium (Chloride) 100 mls @ 100 mls/hr IVPB Q12 [facility] Last Admin: 11/24/16 21:21 Dose: 100 mls/hr Sodium Chloride (Sodium Chloride 0.45%) 500 mls @ 10 mls/hr IV .Q24H [facility] Last Admin: 11/24/16 22:39 Dose: 10 mls/hr Daptomycin 650 mg/ Sodium (Chloride) 100 mls @ 100 mls/hr IVPB MWF@1800 [facility] Stop: 12/16/16 18:59 Last Admin: 11/22/16 18:49 Dose: 100 mls/hr Insulin Detemir (Levemir) 6 units SC HS [facility] Last Admin: 11/24/16 22:40 Dose: 6 units Insulin Human Lispro (Humalog) 4 units SC AC [facility] Last Admin: 11/24/16 17:07 Dose: 4 units Lidocaine (Lidoderm) 1 ea TD DAILY [facility] Last Admin: 11/24/16 08:47 Dose: 1 ea Nystatin (Nystop Topical Powder) 1 applic TOP BID [facility] Last Admin: 11/24/16 17:06 Dose: 1 applic Ondansetron HCl (Zofran Inj) 4 mg IVP Q6 PRN PRN Reason: Nausea/Vomiting Last Admin: 09/19/16 10:26 Dose: 4 mg Pantoprazole Sodium (Protonix Ec Tab) 40 mg PO DAILY [facility] Last Admin: 11/24/16 08:51 Dose: 40 mg Sevelamer HCl (Renagel) 1,600 mg PO TID [facility] Last Admin: 11/24/16 17:06 Dose: 1,600 mg Topiramate (Topamax) 50 mg PO BID [facility] Last Admin: 11/24/16 17:06 Dose: 50 mg Vitamin B Complex/Vit C/Folic Acid (Nephro-Ajay) 1 tab PO DAILY [facility] Last Admin: 11/24/16 08:50 Dose: 1 tab - Labs Labs: 11/22/16 14:48 11/22/16 14:48 PT 17.2 Seconds (9.8-13.1) H 11/19/16 06:00 INR 1.5 (0.9-1.2) H 11/19/16 06:00 APTT 55.8 Seconds (25.6-37.1) H 11/19/16 06:00 - Constitutional Appears: No Acute Distress - Head Exam Head Exam: ATRAUMATIC, NORMAL INSPECTION, NORMOCEPHALIC - Eye Exam Eye Exam: EOMI, Normal appearance, PERRL Pupil Exam: NORMAL ACCOMODATION, PERRL - ENT Exam ENT Exam: Mucous Membranes Moist, Normal Exam - Neck Exam Neck Exam: Full ROM, Normal Inspection. absent: Lymphadenopathy - Respiratory Exam Respiratory Exam: Clear to Ausculation Bilateral, NORMAL BREATHING PATTERN - Cardiovascular Exam Cardiovascular Exam: REGULAR RHYTHM, +S1, +S2. absent: Murmur - GI/Abdominal Exam GI & Abdominal Exam: Soft, Normal Bowel Sounds. absent: Distended, Tenderness - Exam Exam: NORMAL INSPECTION - Extremities Exam Extremities Exam: Full ROM, Tenderness. absent: Joint Swelling, Normal Inspection Additional comments: Knee full ROM. Dressing C/D/I - Back Exam Back Exam: NORMAL INSPECTION - Neurological Exam Neurological Exam: Alert, Awake, CN II-XII Intact, Oriented x3 - Psychiatric Exam Psychiatric exam: Normal Affect, Normal Mood - Skin Skin Exam: Dry, Warm. 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) w/revision and wash out (11/19) -Will wet/dry dressing change today -c/w local wound care -c/w abx -will continue to follow closely -d/w attending <Raffy Mccormack - Last Filed: 11/25/16 22:17> Objective - Vital Signs/Intake and Output Vital Signs (last 24 hours): Temp Pulse Resp BP Pulse Ox 97.8 F 90 18 152/70 H 99 11/25/16 15:58 11/25/16 15:58 11/25/16 15:58 11/25/16 15:58 11/25/16 15:58 - Medications Medications: Current Medications Acetaminophen (Tylenol 325mg Tab) 650 mg PO Q4 PRN PRN Reason: Fever >100.4 F Last Admin: 11/21/16 00:44 Dose: 650 mg Acetaminophen (Tylenol 325mg Tab) 650 mg PO Q4 PRN PRN Reason: Pain, moderate (4-7) Last Admin: 09/16/16 22:34 Dose: 650 mg Albuterol Sulfate (Albuterol 0.083% Inhal Barbie (2.5 Mg/3 Ml) Ud) 2.5 mg INH RQ4 PRN PRN Reason: Shortness of Breath Albuterol/Ipratropium (Duoneb 3 Mg/0.5 Mg (3 Ml) Ud) 3 ml INH RQ4 PRN PRN Reason: Shortness of Breath Last Admin: 11/11/16 07:39 Dose: 3 ml Apixaban (Eliquis) 5 mg PO BID [facility] PRN Reason: Protocol Last Admin: 11/25/16 16:44 Dose: 5 mg Aspirin (Ecotrin) 81 mg PO DAILY [facility] Last Admin: 11/25/16 08:39 Dose: 81 mg Atorvastatin Calcium (Lipitor) 40 mg PO DAILY [facility] Last Admin: 11/25/16 08:46 Dose: 40 mg Benzonatate (Tessalon Perles) 200 mg PO TID PRN PRN Reason: Cough Last Admin: 11/21/16 09:06 Dose: 200 mg Calcium Carbonate (Oscal) 500 mg PO BIDWM [facility] Last Admin: 11/25/16 16:44 Dose: 500 mg Cinacalcet (Sensipar) 30 mg PO DAILY [facility] Last Admin: 11/25/16 08:39 Dose: 30 mg Collagenase (Santyl) 1 applic TOP DAILY [facility] Last Admin: 11/25/16 09:44 Dose: 1 applic Diphenhydramine HCl (Benadryl) 25 mg PO Q6 PRN PRN Reason: Itching / Pruritus Last Admin: 11/12/16 08:34 Dose: 25 mg Epoetin Tha (Procrit) 20,000 unit IV [facility] Last Admin: 11/25/16 15:53 Dose: 20,000 unit Ergocalciferol (Drisdol 50,000 Intl Units Cap) 1 cap PO WED [facility] Last Admin: 11/20/16 10:00 Dose: 1 cap Fluconazole (Diflucan) 100 mg PO DAILY [facility] Last Admin: 11/25/16 08:40 Dose: 100 mg Gabapentin (Neurontin) 300 mg PO TID [facility] Last Admin: 11/25/16 16:45 Dose: 300 mg Hydrocortisone (Anusol-Hc) 1 applic HI BID PRN PRN Reason: Inflammation Hydromorphone HCl (Dilaudid) 1 mg IVP Q2H PRN PRN Reason: Pain, severe (8-10) Last Admin: 11/25/16 21:47 Dose: 1 mg Meropenem 500 mg/ Sodium (Chloride) 100 mls @ 100 mls/hr IVPB DAILY@0100 [facility] Last Admin: 11/25/16 00:09 Dose: 100 mls/hr Gentamicin Sulfate/Sodium Chloride (Gentamicin 100mg/100ml Ns) 100 mg in 100 mls @ 100 mls/hr IVPB MWF [facility] Last Admin: 11/25/16 15:51 Dose: 100 mls/hr Tigecycline 25 mg/ Sodium (Chloride) 100 mls @ 100 mls/hr IVPB Q12 [facility] Last Admin: 11/25/16 20:42 Dose: 100 mls/hr Sodium Chloride (Sodium Chloride 0.45%) 500 mls @ 10 mls/hr IV .Q24H [facility] Last Admin: 11/25/16 16:47 Dose: Not Given Daptomycin 650 mg/ Sodium (Chloride) 100 mls @ 100 mls/hr IVPB MWF@1800 [facility] Stop: 12/16/16 18:59 Last Admin: 11/25/16 21:47 Dose: 100 mls/hr Insulin Detemir (Levemir) 6 units SC HS [facility] Last Admin: 11/24/16 22:40 Dose: 6 units Insulin Human Lispro (Humalog) 4 units SC AC [facility] Last Admin: 11/25/16 18:00 Dose: 4 units Lidocaine (Lidoderm) 1 ea TD DAILY [facility] Last Admin: 11/25/16 08:40 Dose: 1 ea Nystatin (Nystop Topical Powder) 1 applic TOP BID [facility] Last Admin: 11/25/16 16:45 Dose: 1 applic Ondansetron HCl (Zofran Inj) 4 mg IVP Q6 PRN PRN Reason: Nausea/Vomiting Last Admin: 09/19/16 10:26 Dose: 4 mg Pantoprazole Sodium (Protonix Ec Tab) 40 mg PO DAILY [facility] Last Admin: 11/25/16 08:39 Dose: 40 mg Sevelamer HCl (Renagel) 1,600 mg PO TID [facility] Last Admin: 11/25/16 16:43 Dose: 1,600 mg Topiramate (Topamax) 50 mg PO BID [facility] Last Admin: 11/25/16 16:44 Dose: 50 mg Vitamin B Complex/Vit C/Folic Acid (Nephro-Ajay) 1 tab PO DAILY [facility] Last Admin: 11/25/16 08:40 Dose: 1 tab - Labs Labs: 11/25/16 18:10 11/22/16 14:48 PT 17.2 Seconds (9.8-13.1) H 11/19/16 06:00 INR 1.5 (0.9-1.2) H 11/19/16 06:00 APTT 55.8 Seconds (25.6-37.1) H 11/19/16 06:00 Assessment and Plan - Assessment and Plan (Free Text) Plan: Patient seen and examined. She is afebrile with no immediate complaints or systemic signs of infection. Right BKA with less purulence and drainage. Continue current management, antibiotics and wound care. will examine right BKA wound tomorrow and plan based on exam.
[2016-11-25] MEDS: Insulin Lispro (humaLOG) 100 Units/ml Inj SC SCH ×3 (08:38→18:00)
[2016-11-25] MEDS: Pantoprazole 40 mg EC Tab PO SCH (08:39)
[2016-11-25] MEDS: Lidocaine 5% Patch TD SCH (08:40)
[2016-11-25] MEDS: Multivitamin Vitamin B Complex (Nephro-Vite) Tab PO SCH (08:40)
[2016-11-25] MEDS: SODIUM CHLORIDE 0.9% IVPB SCH ×2 (08:41→20:42)
[2016-11-25] MEDS: TIGECYCLINE IVPB SCH ×2 (08:41→20:42)
--- NOTE | 2016-11-25 09:17 | CP.PCM.PN ---
Subjective - Date & Time of Evaluation Date of Evaluation: 11/25/16 Time of Evaluation: 09:15 - Subjective Subjective: No significant changes reported overnight Patient appears to be comfortable Vital signs stable Chest no rhonchi Heart no rubs Abdomen soft And extremity no edema above the amputation Impression and plan Hemodialysis now as scheduled with ultrafiltration about [id number] as tolerated Potassium bath 2 mEq Bicarbonate bath the same Medical condition as reported previously with status post amputation of the right below knee with subsequent surgery related to debridement and infection, multiple antibiotics Objective - Vital Signs/Intake and Output Vital Signs (last 24 hours): Temp Pulse Resp BP Pulse Ox 97.7 F 58 L 18 138/95 H 98 11/25/16 08:43 11/25/16 08:43 11/25/16 08:43 11/25/16 08:43 11/25/16 08:43 - Medications Medications: Current Medications Acetaminophen (Tylenol 325mg Tab) 650 mg PO Q4 PRN PRN Reason: Fever >100.4 F Last Admin: 11/21/16 00:44 Dose: 650 mg Acetaminophen (Tylenol 325mg Tab) 650 mg PO Q4 PRN PRN Reason: Pain, moderate (4-7) Last Admin: 09/16/16 22:34 Dose: 650 mg Albuterol Sulfate (Albuterol 0.083% Inhal Barbie (2.5 Mg/3 Ml) Ud) 2.5 mg INH RQ4 PRN PRN Reason: Shortness of Breath Albuterol/Ipratropium (Duoneb 3 Mg/0.5 Mg (3 Ml) Ud) 3 ml INH RQ4 PRN PRN Reason: Shortness of Breath Last Admin: 11/11/16 07:39 Dose: 3 ml Apixaban (Eliquis) 5 mg PO BID [facility] PRN Reason: Protocol Last Admin: 11/25/16 08:39 Dose: 5 mg Aspirin (Ecotrin) 81 mg PO DAILY [facility] Last Admin: 11/25/16 08:39 Dose: 81 mg Atorvastatin Calcium (Lipitor) 40 mg PO DAILY [facility] Last Admin: 11/25/16 08:46 Dose: 40 mg Benzonatate (Tessalon Perles) 200 mg PO TID PRN PRN Reason: Cough Last Admin: 11/21/16 09:06 Dose: 200 mg [facility] [place] Last Admin: 11/25/16 08:40 Dose: 500 mg Cinacalcet (Sensipar) 30 mg PO DAILY [facility] Last Admin: 11/25/16 08:39 Dose: 30 mg Collagenase (Santyl) 1 applic TOP DAILY [facility] Last Admin: 11/24/16 08:53 Dose: Not Given Diphenhydramine HCl (Benadryl) 25 mg PO Q6 PRN PRN Reason: Itching / Pruritus Last Admin: 11/12/16 08:34 Dose: 25 mg Epoetin Tha (Procrit) 20,000 unit IV MWF [facility] Last Admin: 11/22/16 15:54 Dose: Not Given Ergocalciferol (Drisdol 50,000 Intl Units Cap) 1 cap PO WED [facility] Last Admin: 11/20/16 10:00 Dose: 1 cap Fluconazole (Diflucan) 100 mg PO DAILY [facility] Last Admin: 11/25/16 08:40 Dose: 100 mg Gabapentin (Neurontin) 300 mg PO TID [facility] Last Admin: 11/25/16 08:40 Dose: 300 mg Hydrocortisone (Anusol-Hc) 1 applic [place] BID PRN PRN Reason: Inflammation Hydromorphone HCl (Dilaudid) 1 mg IVP Q2H PRN PRN Reason: Pain, severe (8-10) Last Admin: 11/25/16 08:09 Dose: 1 mg Meropenem 500 mg/ Sodium (Chloride) 100 mls @ 100 mls/hr IVPB DAILY@0100 [facility] Last Admin: 11/25/16 00:09 Dose: 100 mls/hr Gentamicin Sulfate/Sodium Chloride (Gentamicin 100mg/100ml Ns) 100 mg in 100 mls @ 100 mls/hr IVPB MWF [facility] Last Admin: 11/22/16 15:52 Dose: 100 mls/hr Tigecycline 25 mg/ Sodium (Chloride) 100 mls @ 100 mls/hr IVPB Q12 [facility] Last Admin: 11/25/16 08:41 Dose: 100 mls/hr Sodium Chloride (Sodium Chloride 0.45%) 500 mls @ 10 mls/hr IV .Q24H [facility] Last Admin: 11/24/16 22:39 Dose: 10 mls/hr Daptomycin 650 mg/ Sodium (Chloride) 100 mls @ 100 mls/hr IVPB MWF@1800 [facility] Stop: 12/16/16 18:59 Last Admin: 11/22/16 18:49 Dose: 100 mls/hr Insulin Detemir (Levemir) 6 units SC HS [facility] Last Admin: 11/24/16 22:40 Dose: 6 units Insulin Human Lispro (Humalog) 4 units SC AC [facility] Last Admin: 11/25/16 08:38 Dose: 4 units Lidocaine (Lidoderm) 1 ea TD DAILY [facility] Last Admin: 11/25/16 08:40 Dose: 1 ea Nystatin (Nystop Topical Powder) 1 applic TOP BID [facility] Last Admin: 11/24/16 17:06 Dose: 1 applic Ondansetron HCl (Zofran Inj) 4 mg IVP Q6 PRN PRN Reason: Nausea/Vomiting Last Admin: 09/19/16 10:26 Dose: 4 mg Pantoprazole Sodium (Protonix Ec Tab) 40 mg PO DAILY [facility] Last Admin: 11/25/16 08:39 Dose: 40 mg Sevelamer HCl (Renagel) 1,600 mg PO TID [facility] Last Admin: 11/25/16 08:39 Dose: 1,600 mg Topiramate (Topamax) 50 mg PO BID [facility] Last Admin: 11/25/16 08:40 Dose: 50 mg Vitamin B Complex/Vit C/Folic Acid (Nephro-Ajay) 1 tab PO DAILY [facility] Last Admin: 11/25/16 08:40 Dose: 1 tab - Labs Labs: 11/22/16 14:48 11/22/16 14:48 PT 17.2 Seconds (9.8-13.1) H 11/19/16 06:00 INR 1.5 (0.9-1.2) H 11/19/16 06:00 APTT 55.8 Seconds (25.6-37.1) H 11/19/16 06:00 Assessment and Plan (1) ESRD (end stage renal disease) Status: Chronic (2) Cellulitis of leg Status: Chronic
[2016-11-25] MEDS: Santyl Collagenase OINTMENT TOP SCH (09:44)
--- NOTE | 2016-11-25 14:50 | CP.PCM.PN ---
Subjective - Date & Time of Evaluation Date of Evaluation: 11/25/16 Time of Evaluation: 14:46 - Subjective Subjective: Patient is sitting up in wheelchair. She went outside as part of her physical therapy and [facility] now [facility] Wound care done by surgical supplies sterilizer, but this was painful and upset the patient. Continues on iv antibiotics and Eliquis/ASA to help in clearing the infection of the right BK amputation/revision site. DM controlled on current regimen per Dr. Vilallba For hemodialysis later today. Objective - Vital Signs/Intake and Output Vital Signs (last 24 hours): Temp Pulse Resp BP Pulse Ox 97.7 F 58 L 18 138/95 H 98 11/25/16 08:43 11/25/16 08:43 11/25/16 08:43 11/25/16 08:43 11/25/16 08:43 - Medications Medications: Current Medications Acetaminophen (Tylenol 325mg Tab) 650 mg PO Q4 PRN PRN Reason: Fever >100.4 F Last Admin: 11/21/16 00:44 Dose: 650 mg Acetaminophen (Tylenol 325mg Tab) 650 mg PO Q4 PRN PRN Reason: Pain, moderate (4-7) Last Admin: 09/16/16 22:34 Dose: 650 mg Albuterol Sulfate (Albuterol 0.083% Inhal Barbie (2.5 Mg/3 Ml) Ud) 2.5 mg INH RQ4 PRN PRN Reason: Shortness of Breath Albuterol/Ipratropium (Duoneb 3 Mg/0.5 Mg (3 Ml) Ud) 3 ml INH RQ4 PRN PRN Reason: Shortness of Breath Last Admin: 11/11/16 07:39 Dose: 3 ml Apixaban (Eliquis) 5 mg PO BID [facility] PRN Reason: Protocol Last Admin: 11/25/16 08:39 Dose: 5 mg Aspirin (Ecotrin) 81 mg PO DAILY [facility] Last Admin: 11/25/16 08:39 Dose: 81 mg Atorvastatin Calcium (Lipitor) 40 mg PO DAILY [facility] Last Admin: 11/25/16 08:46 Dose: 40 mg Benzonatate (Tessalon Perles) 200 mg PO TID PRN PRN Reason: Cough Last Admin: 11/21/16 09:06 Dose: 200 mg Calcium Carbon[facility] (Oscal) [facility] [place] Last Admin: 11/25/16 08:40 Dose: 500 mg Cinacalcet (Sensipar) 30 mg PO DAILY [facility] Last Admin: 11/25/16 08:39 Dose: 30 mg Collagenase (Santyl) 1 applic TOP DAILY [facility] Last Admin: 11/25/16 09:44 Dose: 1 applic Diphenhydramine HCl (Benadryl) 25 mg PO Q6 PRN PRN Reason: Itching / Pruritus Last Admin: 11/12/16 08:34 Dose: 25 mg Epoetin Tha (Procrit) 20,000 unit IV MWF [facility] Last Admin: 11/22/16 15:54 Dose: Not Given Ergocalciferol (Drisdol 50,000 Intl Units Cap) 1 cap PO WED [facility] Last Admin: 11/20/16 10:00 Dose: 1 cap Fluconazole (Diflucan) 100 mg PO DAILY [facility] Last Admin: 11/25/16 08:40 Dose: 100 mg Gabapentin (Neurontin) 300 mg PO TID [facility] Last Admin: 11/25/16 13:38 Dose: 300 mg Hydrocortisone (Anusol-Hc) 1 applic [place] BID PRN PRN Reason: Inflammation Hydromorphone HCl (Dilaudid) 1 mg IVP Q2H PRN PRN Reason: Pain, severe (8-10) Last Admin: 11/25/16 13:36 Dose: 1 mg Meropenem 500 mg/ Sodium (Chloride) 100 mls @ 100 mls/hr IVPB DAILY@0100 [facility] Last Admin: 11/25/16 00:09 Dose: 100 mls/hr Gentamicin Sulfate/Sodium Chloride (Gentamicin 100mg/100ml Ns) 100 mg in 100 mls @ 100 mls/hr IVPB MWF [facility] Last Admin: 11/22/16 15:52 Dose: 100 mls/hr Tigecycline 25 mg/ Sodium (Chloride) 100 mls @ 100 mls/hr IVPB Q12 [facility] Last Admin: 11/25/16 08:41 Dose: 100 mls/hr Sodium Chloride (Sodium Chloride 0.45%) 500 mls @ 10 mls/hr IV .Q24H [facility] Last Admin: 11/24/16 22:39 Dose: 10 mls/hr Daptomycin 650 mg/ Sodium (Chloride) 100 mls @ 100 mls/hr IVPB MWF@1800 [facility] Stop: 12/16/16 18:59 Last Admin: 11/22/16 18:49 Dose: 100 mls/hr Insulin Detemir (Levemir) 6 units SC HS [facility] Last Admin: 11/24/16 22:40 Dose: 6 units Insulin Human Lispro (Humalog) 4 units SC AC [facility] Last Admin: 11/25/16 13:38 Dose: 4 units Lidocaine (Lidoderm) 1 ea TD DAILY [facility] Last Admin: 11/25/16 08:40 Dose: 1 ea Nystatin (Nystop Topical Powder) 1 applic TOP BID [facility] Last Admin: 11/25/16 09:43 Dose: 1 applic Ondansetron HCl (Zofran Inj) 4 mg IVP Q6 PRN PRN Reason: Nausea/Vomiting Last Admin: 09/19/16 10:26 Dose: 4 mg Pantoprazole Sodium (Protonix Ec Tab) 40 mg PO DAILY [facility] Last Admin: 11/25/16 08:39 Dose: 40 mg Sevelamer HCl (Renagel) 1,600 mg PO TID [facility] Last Admin: 11/25/16 13:37 Dose: 1,600 mg Topiramate (Topamax) 50 mg PO BID [facility] Last Admin: 11/25/16 08:40 Dose: 50 mg Vitamin B Complex/Vit C/Folic Acid (Nephro-Ajay) 1 tab PO DAILY [facility] Last Admin: 11/25/16 08:40 Dose: 1 tab - Labs Labs: 11/22/16 14:48 11/22/16 14:48 PT 17.2 Seconds (9.8-13.1) H 11/19/16 06:00 INR 1.5 (0.9-1.2) H 11/19/16 06:00 APTT 55.8 Seconds (25.6-37.1) H 11/19/16 06:00 - Constitutional Appears: No Acute Distress - Head Exam Head Exam: NORMAL INSPECTION - Eye Exam Eye Exam: Normal appearance - ENT Exam ENT Exam: Mucous Membranes Moist - Neck Exam Neck Exam: Normal Inspection - Respiratory Exam Respiratory Exam: Clear to Ausculation Bilateral, NORMAL BREATHING PATTERN - Cardiovascular Exam Cardiovascular Exam: REGULAR RHYTHM, +S1, +S2 - GI/Abdominal Exam GI & Abdominal Exam: Soft - Extremities Exam Additional comments: Dressing intact right BK site. L femoral vein PICC line intact. Other extremities as before. - Back Exam Back Exam: NORMAL INSPECTION - Neurological Exam Neurological Exam: Alert, Awake, Oriented x3 - Psychiatric Exam Psychiatric exam: Normal Affect, Normal Mood Assessment and Plan (1) Status post below knee amputation of right lower extremity Assessment & Plan: Continue present care. Status: Acute (2) ESRD (end stage renal disease) on dialysis Status: Chronic (3) DM type 2 (diabetes mellitus, type 2) Status: Chronic (4) Coagulopathy Status: Chronic (5) Peripheral arterial occlusive disease Status: Chronic
[2016-11-25] MEDS: Gentamicin 100mg/100ml NS 100 MG/100 ML BAG IVPB SCH (15:51)
[2016-11-25] MEDS: Epoetin Alfa 20000 UNIT/ML Inj IV SCH (15:53)
[2016-11-25 18:23] LABS: BASO # 0.1 K/uL (0.0-0.2); EOS # 0.7 K/uL (0.0-0.7); EOS % 6.7 % (0.0-4.0); HEMATOCRIT 32.4 % (34.0-47.0); LYMPH # 1.6 K/uL (1.0-4.3); LYMPH % 16.4 % (20.0-40.0); MEAN CELL VOLUME 101.4 fl (81.0-99.0); MEAN CORPUSCULAR HEMOGLOBIN 31.3 pg (27.0-31.0); MEAN CORPUSCULAR HGB CONC 30.9 g/dL (33.0-37.0); MONO # 0.8 K/uL (0.0-0.8); MONO % 8.2 % (0.0-10.0); NEUT # 6.6 K/uL (1.8-7.0); NEUT % 67.7 % (50.0-75.0); NRBC % 0.1 % (0.0-0.0); RED CELL DISTRIBUTION WIDTH 21.6 % (11.5-14.5); WHITE BLOOD COUNT 9.8 K/uL (4.8-10.8)
[2016-11-25 20:04] LABS: IRON 44 ug/dL (37-170)
--- NOTE | 2016-11-25 22:21 | CP.PCM.PN ---
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 She has no seizures and is controlled by Topamax 50 mg BID. She is Out Of Bed and will be receiving therapy on a Wheel Chair to help her standing in [place]. Objective - Vital Signs/Intake and Output Vital Signs (last 24 hours): Temp Pulse Resp BP Pulse Ox 97.8 F 90 18 152/70 H 99 11/25/16 15:58 11/25/16 15:58 11/25/16 15:58 11/25/16 15:58 11/25/16 15:58 - Medications Medications: Current Medications Acetaminophen (Tylenol 325mg Tab) 650 mg PO Q4 PRN PRN Reason: Fever >100.4 F Last Admin: 11/21/16 00:44 Dose: 650 mg Acetaminophen (Tylenol 325mg Tab) 650 mg PO Q4 PRN PRN Reason: Pain, moderate (4-7) Last Admin: 09/16/16 22:34 Dose: 650 mg Albuterol Sulfate (Albuterol 0.083% Inhal Barbie (2.5 Mg/3 Ml) Ud) 2.5 mg INH RQ4 PRN PRN Reason: Shortness of Breath Albuterol/Ipratropium (Duoneb 3 Mg/0.5 Mg (3 Ml) Ud) 3 ml INH RQ4 PRN PRN Reason: Shortness of Breath Last Admin: 11/11/16 07:39 Dose: 3 ml Apixaban (Eliquis) 5 mg PO BID [facility] PRN Reason: Protocol Last Admin: 11/25/16 16:44 Dose: 5 mg Aspirin (Ecotrin) 81 mg PO DAILY [facility] Last Admin: 11/25/16 08:39 Dose: 81 mg Atorvastatin Calcium (Lipitor) 40 mg PO DAILY [facility] Last Admin: 11/25/16 08:46 Dose: 40 mg Benzonatate (Tessalon Perles) 200 mg PO TID PRN PRN Reason: Cough Last Admin: 11/21/16 09:06 Dose: 200 mg Calcium Carbonate (Oscal) [facility] [place] Last Admin: 11/25/16 16:44 Dose: 500 mg Cinacalcet (Sensipar) 30 mg PO DAILY [facility] Last Admin: 11/25/16 08:39 Dose: 30 mg Collagenase (Santyl) 1 applic TOP DAILY [facility] Last Admin: 11/25/16 09:44 Dose: 1 applic Diphenhydramine HCl (Benadryl) 25 mg PO Q6 PRN PRN Reason: Itching / Pruritus Last Admin: 11/12/16 08:34 Dose: 25 mg Epoetin Tha (Procrit) 20,000 unit IV MWF [facility] Last Admin: 11/25/16 15:53 Dose: 20,000 unit Ergocalciferol (Drisdol 50,000 Intl Units Cap) 1 cap PO WED [facility] Last Admin: 11/20/16 10:00 Dose: 1 cap Fluconazole (Diflucan) 100 mg PO DAILY [facility] Last Admin: 11/25/16 08:40 Dose: 100 mg Gabapentin (Neurontin) 300 mg PO TID [facility] Last Admin: 11/25/16 16:45 Dose: 300 mg Hydrocortisone (Anusol-Hc) 1 applic [place] BID PRN PRN Reason: Inflammation Hydromorphone HCl (Dilaudid) 1 mg IVP Q2H PRN PRN Reason: Pain, severe (8-10) Last Admin: 11/25/16 21:47 Dose: 1 mg Meropenem 500 mg/ Sodium (Chloride) 100 mls @ 100 mls/hr IVPB DAILY@0100 [facility] Last Admin: 11/25/16 00:09 Dose: 100 mls/hr Gentamicin Sulfate/Sodium Chloride (Gentamicin 100mg/100ml Ns) 100 mg in 100 mls @ 100 mls/hr IVPB MWF [facility] Last Admin: 11/25/16 15:51 Dose: 100 mls/hr Tigecycline 25 mg/ Sodium (Chloride) 100 mls @ 100 mls/hr IVPB Q12 [facility] Last Admin: 11/25/16 20:42 Dose: 100 mls/hr Sodium Chloride (Sodium Chloride 0.45%) 500 mls @ 10 mls/hr IV .Q24H [facility] Last Admin: 11/25/16 16:47 Dose: Not Given Daptomycin 650 mg/ Sodium (Chloride) 100 mls @ 100 mls/hr IVPB MWF@1800 [facility] Stop: 12/16/16 18:59 Last Admin: 11/25/16 21:47 Dose: 100 mls/hr Insulin Detemir (Levemir) 6 units SC HS [facility] Last Admin: 11/24/16 22:40 Dose: 6 units Insulin Human Lispro (Humalog) 4 units SC AC [facility] Last Admin: 11/25/16 18:00 Dose: 4 units Lidocaine (Lidoderm) 1 ea TD DAILY [facility] Last Admin: 11/25/16 08:40 Dose: 1 ea Nystatin (Nystop Topical Powder) 1 applic TOP BID [facility] Last Admin: 11/25/16 16:45 Dose: 1 applic Ondansetron HCl (Zofran Inj) 4 mg IVP Q6 PRN PRN Reason: Nausea/Vomiting Last Admin: 09/19/16 10:26 Dose: 4 mg Pantoprazole Sodium (Protonix Ec Tab) 40 mg PO DAILY [facility] Last Admin: 11/25/16 08:39 Dose: 40 mg Sevelamer HCl (Renagel) 1,600 mg PO TID [facility] Last Admin: 11/25/16 16:43 Dose: 1,600 mg Topiramate (Topamax) 50 mg PO BID [facility] Last Admin: 11/25/16 16:44 Dose: 50 mg Vitamin B Complex/Vit C/Folic Acid (Nephro-Ajay) 1 tab PO DAILY [facility] Last Admin: 11/25/16 08:40 Dose: 1 tab - Labs Labs: 11/25/16 18:10 11/22/16 14:48 PT 17.2 Seconds (9.8-13.1) H 11/19/16 06:00 INR 1.5 (0.9-1.2) H 11/19/16 06:00 APTT 55.8 Seconds (25.6-37.1) H 11/19/16 06:00 Assessment and Plan (1) Diabetes Status: Chronic (2) ESRD (end stage renal disease) Status: Chronic (3) Cellulitis of leg Status: Chronic (4) Hyperlipidemia Status: Chronic (5) Back pain Status: Acute (6) Bacteremia due to Gram-negative bacteria Status: Acute (7) Diabetes mellitus type 2 with peripheral artery disease Status: Acute (8) PVD (peripheral vascular disease) Status: Acute (9) Osteomyelitis of right leg Status: Acute
[2016-11-25] MEDS: Insulin Detemir 100 Units/ml Inj SC SCH (22:41)
--- NOTE | 2016-11-26 01:32 | PN ---
DATE: 11/25/2016 This is a 46-year-old female with recent uncontrolled type 2 insulin requiring diabetes, who underwent a recent debridement of her right below-knee amputation stump area and is also now being followed closely for metabolic management. She is receiving IV antibiotics for concomitant osteomyelitis of the right BKA stump as noted. Her glycemic levels are much improved at this time and the latest chemistry showed a BUN of 74, sodium 138, potassium 5.4, chloride 100, CO2 22, glucose 126 and creatinine 7.8. So at this time, we will continue the modified baseline bolus insulin regimen as given with Levemir given at 6 units subcutaneous at bedside and daily as ordered. We will continue the Humalog given as 4 units subcutaneous t.i.d. before meals as given. We will titrate incremental as indicated to optimize metabolic control. We will follow. Irene Ambrose MD
[2016-11-26] MEDS: Meropenem 500 MG in Sodium Chloride 0.9% 100 ML IVPB SCH (01:45)
--- NOTE | 2016-11-26 07:55 | CP.PCM.PN ---
<[place] - Last Filed: 11/26/16 10:19> Subjective - Date & Time of Evaluation Date of Evaluation: 11/26/16 Time of Evaluation: 07:53 - Subjective Subjective: Surgery for Dr. Mccormack Pt s&eJoe NOLAN. Denies F/C/N/V/D/CP/SOB. Working with PT. Dressing changed yesterday. Objective - Vital Signs/Intake and Output Vital Signs (last 24 hours): Temp Pulse Resp BP Pulse Ox 98.1 F 93 H 18 102/70 95 11/26/16 00:17 11/26/16 00:17 11/26/16 00:17 11/26/16 00:17 11/26/16 00:17 - Medications Medications: Current Medications Acetaminophen (Tylenol 325mg Tab) 650 mg PO Q4 PRN PRN Reason: Fever >100.4 F Last Admin: 11/21/16 00:44 Dose: 650 mg Acetaminophen (Tylenol 325mg Tab) 650 mg PO Q4 PRN PRN Reason: Pain, moderate (4-7) Last Admin: 09/16/16 22:34 Dose: 650 mg Albuterol Sulfate (Albuterol 0.083% Inhal Barbie (2.5 Mg/3 Ml) Ud) 2.5 mg INH RQ4 PRN PRN Reason: Shortness of Breath Albuterol/Ipratropium (Duoneb 3 Mg/0.5 Mg (3 Ml) Ud) 3 ml INH RQ4 PRN PRN Reason: Shortness of Breath Last Admin: 11/11/16 07:39 Dose: 3 ml Apixaban (Eliquis) 5 mg PO BID [facility] PRN Reason: Protocol Last Admin: 11/25/16 16:44 Dose: 5 mg Aspirin (Ecotrin) 81 mg PO DAILY [facility] Last Admin: 11/25/16 08:39 Dose: 81 mg Atorvastatin Calcium (Lipitor) 40 mg PO DAILY [facility] Last Admin: 11/25/16 08:46 Dose: 40 mg Benzonatate (Tessalon Perles) 200 mg PO TID PRN PRN Reason: Cough Last Admin: 11/21/16 09:06 Dose: 200 mg [facility]cium [facility] ([facility]scal) [facility] [place] Last Admin: 11/25/16 16:44 Dose: 500 mg Cinacalcet (Sensipar) 30 mg PO DAILY [facility] Last Admin: 11/25/16 08:39 Dose: 30 mg Collagenase (Santyl) 1 applic TOP DAILY [facility] Last Admin: 11/25/16 09:44 Dose: 1 applic Diphenhydramine HCl (Benadryl) 25 mg PO Q6 PRN PRN Reason: Itching / Pruritus Last Admin: 11/12/16 08:34 Dose: 25 mg Epoetin Tha (Procrit) 20,000 unit IV MWF [facility] Last Admin: 11/25/16 15:53 Dose: 20,000 unit Ergocalciferol (Drisdol 50,000 Intl Units Cap) 1 cap PO WED [facility] Last Admin: 11/20/16 10:00 Dose: 1 cap Fluconazole (Diflucan) 100 mg PO DAILY [facility] Last Admin: 11/25/16 08:40 Dose: 100 mg Gabapentin (Neurontin) 300 mg PO TID [facility] Last Admin: 11/25/16 16:45 Dose: 300 mg Hydrocortisone (Anusol-Hc) 1 applic [place] BID PRN PRN Reason: Inflammation Hydromorphone HCl (Dilaudid) 1 mg IVP Q2H PRN PRN Reason: Pain, severe (8-10) Last Admin: 11/26/16 06:48 Dose: 1 mg Meropenem 500 mg/ Sodium (Chloride) 100 mls @ 100 mls/hr IVPB DAILY@0100 [facility] Last Admin: 11/26/16 01:45 Dose: 100 mls/hr Gentamicin Sulfate/Sodium Chloride (Gentamicin 100mg/100ml Ns) 100 mg in 100 mls @ 100 mls/hr IVPB MWF [facility] Last Admin: 11/25/16 15:51 Dose: 100 mls/hr Tigecycline 25 mg/ Sodium (Chloride) 100 mls @ 100 mls/hr IVPB Q12 [facility] Last Admin: 11/25/16 20:42 Dose: 100 mls/hr Sodium Chloride (Sodium Chloride 0.45%) 500 mls @ 10 mls/hr IV .Q24H [facility] Last Admin: 11/25/16 16:47 Dose: Not Given Daptomycin 650 mg/ Sodium (Chloride) 100 mls @ 100 mls/hr IVPB MWF@1800 [facility] Stop: 12/16/16 18:59 Last Admin: 11/25/16 21:47 Dose: 100 mls/hr Insulin Detemir (Levemir) 6 units SC HS [facility] Last Admin: 11/25/16 22:41 Dose: 6 units Insulin Human Lispro (Humalog) 4 units SC AC [facility] Last Admin: 11/25/16 18:00 Dose: 4 units Lidocaine (Lidoderm) 1 ea TD DAILY [facility] Last Admin: 11/25/16 08:40 Dose: 1 ea Nystatin (Nystop Topical Powder) 1 applic TOP BID [facility] Last Admin: 11/25/16 16:45 Dose: 1 applic Ondansetron HCl (Zofran Inj) 4 mg IVP Q6 PRN PRN Reason: Nausea/Vomiting Last Admin: 09/19/16 10:26 Dose: 4 mg Pantoprazole Sodium (Protonix Ec Tab) 40 mg PO DAILY [facility] Last Admin: 11/25/16 08:39 Dose: 40 mg Sevelamer HCl (Renagel) 1,600 mg PO TID [facility] Last Admin: 11/25/16 16:43 Dose: 1,600 mg Topiramate (Topamax) 50 mg PO BID [facility] Last Admin: 11/25/16 16:44 Dose: 50 mg Vitamin B Complex/Vit C/Folic Acid (Nephro-Ajay) 1 tab PO DAILY [facility] Last Admin: 11/25/16 08:40 Dose: 1 tab - Labs Labs: 11/25/16 18:10 11/22/16 14:48 PT 17.2 Seconds (9.8-13.1) H 11/19/16 06:00 INR 1.5 (0.9-1.2) H 11/19/16 06:00 APTT 55.8 Seconds (25.6-37.1) H 11/19/16 06:00 - Constitutional Appears: In Acute Distress - Head Exam Head Exam: ATRAUMATIC, NORMAL INSPECTION, NORMOCEPHALIC - Eye Exam Eye Exam: EOMI, Normal appearance, PERRL Pupil Exam: NORMAL ACCOMODATION, PERRL - ENT Exam ENT Exam: Mucous Membranes Moist, Normal Exam - Neck Exam Neck Exam: Full ROM, Normal Inspection. absent: Lymphadenopathy - Respiratory Exam Respiratory Exam: Clear to Ausculation Bilateral, NORMAL BREATHING PATTERN - Cardiovascular Exam Cardiovascular Exam: REGULAR RHYTHM, +S1, +S2. absent: Murmur - GI/Abdominal Exam GI & Abdominal Exam: Soft, Normal Bowel Sounds. absent: Distended, Tenderness - Rectal Exam Rectal Exam: NORMAL INSPECTION - Extremities Exam Extremities Exam: Tenderness. absent: Normal Inspection Additional comments: b/l BKA. R stump: wound open. Mild seropurulent drainage. Dressing changed yesterday. - Neurological Exam Neurological Exam: Alert, Awake, CN II-XII Intact, Oriented x3 - Psychiatric Exam Psychiatric exam: Normal Affect, Normal Mood - Skin Skin Exam: Dry, Erythema, Warm. absent: Rash, Urticaria, Vesicles Assessment and Plan - Assessment and Plan (Free Text) Assessment: 46F s/p R BKA (10/01) w/revision and wash out (11/19) -Will wet/dry dressing change PRN -c/w local wound care -c/w abx -will continue to follow closely -d/w attending <Raffy Mccormack - Last Filed: 11/26/16 13:44> Objective - Vital Signs/Intake and Output Vital Signs (last 24 hours): Temp Pulse Resp BP Pulse Ox 98.7 F 74 18 96/43 L 95 11/26/16 09:00 11/26/16 09:00 11/26/16 09:00 11/26/16 09:00 11/26/16 09:00 - Medications Medications: Current Medications Acetaminophen (Tylenol 325mg Tab) 650 mg PO Q4 PRN PRN Reason: Fever >100.4 F Last Admin: 11/21/16 00:44 Dose: 650 mg Acetaminophen (Tylenol 325mg Tab) 650 mg PO Q4 PRN PRN Reason: Pain, moderate (4-7) Last Admin: 09/16/16 22:34 Dose: 650 mg Albuterol Sulfate (Albuterol 0.083% Inhal Barbie (2.5 Mg/3 Ml) Ud) 2.5 mg INH RQ4 PRN PRN Reason: Shortness of Breath Albuterol/Ipratropium (Duoneb 3 Mg/0.5 Mg (3 Ml) Ud) 3 ml INH RQ4 PRN PRN Reason: Shortness of Breath Last Admin: 11/11/16 07:39 Dose: 3 ml Apixaban (Eliquis) 5 mg PO BID [facility] PRN Reason: Protocol Last Admin: 11/26/16 10:06 Dose: 5 mg Aspirin (Ecotrin) 81 mg PO DAILY [facility] Last Admin: 11/26/16 10:07 Dose: 81 mg Atorvastatin Calcium (Lipitor) 40 mg PO DAILY [facility] Last Admin: 11/26/16 10:07 Dose: 40 mg Benzonatate (Tessalon Perles) 200 mg PO TID PRN PRN Reason: Cough Last Admin: 11/21/16 09:06 Dose: 200 mg Calcium Carbonate (Oscal) 500 mg PO BIDWM [facility] Last Admin: 11/26/16 10:08 Dose: 500 mg Cinacalcet (Sensipar) 30 mg PO DAILY [facility] Last Admin: 11/26/16 10:04 Dose: 30 mg Collagenase (Santyl) 1 applic TOP DAILY [facility] Last Admin: 11/26/16 10:09 Dose: 1 applic Diphenhydramine HCl (Benadryl) 25 mg PO Q6 PRN PRN Reason: Itching / Pruritus Last Admin: 11/12/16 08:34 Dose: 25 mg Docusate Sodium (Colace) 100 mg PO BID [facility] Epoetin Tha (Procrit) 20,000 unit IV MWF [facility] Last Admin: 11/25/16 15:53 Dose: 20,000 unit Ergocalciferol (Drisdol 50,000 Intl Units Cap) 1 cap PO WED [facility] Last Admin: 11/20/16 10:00 Dose: 1 cap Fluconazole (Diflucan) 100 mg PO DAILY [facility] Last Admin: 11/26/16 10:07 Dose: 100 mg Gabapentin (Neurontin) 300 mg PO TID [facility] Last Admin: 11/26/16 12:32 Dose: 300 mg Hydrocortisone (Anusol-Hc) 1 applic [place] BID PRN PRN Reason: Inflammation Hydromorphone HCl (Dilaudid) 1 mg IVP Q2H PRN PRN Reason: Pain, severe (8-10) Last Admin: 11/26/16 12:30 Dose: 1 mg Meropenem 500 mg/ Sodium (Chloride) 100 mls @ 100 mls/hr IVPB DAILY@0100 [facility] Last Admin: 11/26/16 01:45 Dose: 100 mls/hr Gentamicin Sulfate/Sodium Chloride (Gentamicin 100mg/100ml Ns) 100 mg in 100 mls @ 100 mls/hr IVPB MWF [facility] Last Admin: 11/25/16 15:51 Dose: 100 mls/hr Tigecycline 25 mg/ Sodium (Chloride) 100 mls @ 100 mls/hr IVPB Q12 [facility] Last Admin: 11/26/16 10:03 Dose: 100 mls/hr Sodium Chloride (Sodium Chloride 0.45%) 500 mls @ 10 mls/hr IV .Q24H [facility] Last Admin: 11/25/16 16:47 Dose: Not Given Daptomycin 650 mg/ Sodium (Chloride) 100 mls @ 100 mls/hr IVPB MWF@1800 [facility] Stop: 12/16/16 18:59 Last Admin: 11/25/16 21:47 Dose: 100 mls/hr Insulin Detemir (Levemir) 6 units SC HS [facility] Last Admin: 11/25/16 22:41 Dose: 6 units Insulin Human Lispro (Humalog) 4 units SC AC [facility] Last Admin: 11/26/16 12:31 Dose: 4 units Lidocaine (Lidoderm) 1 ea TD DAILY [facility] Last Admin: 11/26/16 10:08 Dose: 1 ea Nystatin (Nystop Topical Powder) 1 applic TOP BID [facility] Last Admin: 11/26/16 10:08 Dose: 1 applic Ondansetron HCl (Zofran Inj) 4 mg IVP Q6 PRN PRN Reason: Nausea/Vomiting Last Admin: 09/19/16 10:26 Dose: 4 mg Pantoprazole Sodium (Protonix Ec Tab) 40 mg PO DAILY [facility] Last Admin: 11/26/16 10:07 Dose: 40 mg Sennosides (Senokot Tab) 25.8 mg PO [facility] Sevelamer HCl (Renagel) 1,600 mg PO TID [facility] Last Admin: 11/26/16 12:32 Dose: 1,600 mg Topiramate (Topamax) 50 mg PO BID [facility] Last Admin: 11/26/16 10:07 Dose: 50 mg Vitamin B Complex/Vit C/Folic Acid (Nephro-Ajay) 1 tab PO DAILY [facility] Last Admin: 11/26/16 10:05 Dose: 1 tab - Labs Labs: 11/25/16 18:10 11/22/16 14:48 PT 17.2 Seconds (9.8-13.1) H 11/19/16 06:00 INR 1.5 (0.9-1.2) H 11/19/16 06:00 APTT 55.8 Seconds (25.6-37.1) H 11/19/16 06:00 Assessment and Plan - Assessment and Plan (Free Text) Plan: Patient is seen and examined. Overall, patient remained stable with no acute complaints. There are no systemic signs of infection. Right BKA stump was examined and dressing was changed. The wound looks better - no krystal pus or significant amount of purulence, no significant amount of necrotic or ischemic tissue. At this point we'll continue current care, wet-to-dry wound changes and antibiotic treatment.
[2016-11-26] MEDS: Insulin Lispro (humaLOG) 100 Units/ml Inj SC SCH ×3 (09:04→16:40)
[2016-11-26] MEDS: TIGECYCLINE IVPB SCH ×2 (10:03→20:59)
[2016-11-26] MEDS: SODIUM CHLORIDE 0.9% IVPB SCH ×2 (10:03→20:59)
[2016-11-26] MEDS: Multivitamin Vitamin B Complex (Nephro-Vite) Tab PO SCH (10:05)
[2016-11-26] MEDS: Pantoprazole 40 mg EC Tab PO SCH (10:07)
[2016-11-26] MEDS: Lidocaine 5% Patch TD SCH (10:08)
[2016-11-26] MEDS: Santyl Collagenase OINTMENT TOP SCH (10:09)
--- NOTE | 2016-11-26 10:41 | CP.PCM.PN ---
Subjective - Date & Time of Evaluation Date of Evaluation: 11/26/16 Time of Evaluation: 10:40 - Subjective Subjective: Patient is out of bed on a wheelchair Receiving physiotherapy at the floor Completed hemodialysis yesterday No new events reported Objective - Vital Signs/Intake and Output Vital Signs (last 24 hours): Temp Pulse Resp BP Pulse Ox 98.7 F 74 20 98/58 L 98 11/26/16 08:31 11/26/16 08:31 11/26/16 08:31 11/26/16 08:31 11/26/16 08:31 - Medications Medications: Current Medications Acetaminophen (Tylenol 325mg Tab) 650 mg PO Q4 PRN PRN Reason: Fever >100.4 F Last Admin: 11/21/16 00:44 Dose: 650 mg Acetaminophen (Tylenol 325mg Tab) 650 mg PO Q4 PRN PRN Reason: Pain, moderate (4-7) Last Admin: 09/16/16 22:34 Dose: 650 mg Albuterol Sulfate (Albuterol 0.083% Inhal Barbie (2.5 Mg/3 Ml) Ud) 2.5 mg INH RQ4 PRN PRN Reason: Shortness of Breath Albuterol/Ipratropium (Duoneb 3 Mg/0.5 Mg (3 Ml) Ud) 3 ml INH RQ4 PRN PRN Reason: Shortness of Breath Last Admin: 11/11/16 07:39 Dose: 3 ml Apixaban (Eliquis) 5 mg PO BID [facility] PRN Reason: Protocol Last Admin: 11/26/16 10:06 Dose: 5 mg Aspirin (Ecotrin) 81 mg PO DAILY [facility] Last Admin: 11/26/16 10:07 Dose: 81 mg Atorvastatin Calcium (Lipitor) 40 mg PO DAILY [facility] Last Admin: 11/26/16 10:07 Dose: 40 mg Benzonatate (Tessalon Perles) 200 mg PO TID PRN PRN Reason: Cough Last Admin: 11/21/16 09:06 Dose: 200 mg Calcium Carbonate (Oscal) 500 mg PO BIDWM [facility] Last Admin: 11/26/16 10:08 Dose: 500 mg Cinacalcet (Sensipar) 30 mg PO DAILY [facility] Last Admin: 11/26/16 10:04 Dose: 30 mg Collagenase (Santyl) 1 applic TOP DAILY [facility] Last Admin: 11/26/16 10:09 Dose: 1 applic Diphenhydramine HCl (Benadryl) 25 mg PO Q6 PRN PRN Reason: Itching / Pruritus Last Admin: 11/12/16 08:34 Dose: 25 mg Epoetin Tha (Procrit) 20,000 unit IV MWF [facility] Last Admin: 11/25/16 15:53 Dose: 20,000 unit Ergocalciferol (Drisdol 50,000 Intl Units Cap) 1 cap PO WED [facility] Last Admin: 11/20/16 10:00 Dose: 1 cap Fluconazole (Diflucan) 100 mg PO DAILY [facility] Last Admin: 11/26/16 10:07 Dose: 100 mg Gabapentin (Neurontin) 300 mg PO TID [facility] Last Admin: 11/26/16 10:07 Dose: 300 mg Hydrocortisone (Anusol-Hc) 1 applic [place] BID PRN PRN Reason: Inflammation Hydromorphone HCl (Dilaudid) 1 mg IVP Q2H PRN PRN Reason: Pain, severe (8-10) Last Admin: 11/26/16 10:18 Dose: 1 mg Meropenem 500 mg/ Sodium (Chloride) 100 mls @ 100 mls/hr IVPB DAILY@0100 [facility] Last Admin: 11/26/16 01:45 Dose: 100 mls/hr Gentamicin Sulfate/Sodium Chloride (Gentamicin 100mg/100ml Ns) 100 mg in 100 mls @ 100 mls/hr IVPB MWF [facility] Last Admin: 11/25/16 15:51 Dose: 100 mls/hr Tigecycline 25 mg/ Sodium (Chloride) 100 mls @ 100 mls/hr IVPB Q12 [facility] Last Admin: 11/26/16 10:03 Dose: 100 mls/hr Sodium Chloride (Sodium Chloride 0.45%) 500 mls @ 10 mls/hr IV .Q24H [facility] Last Admin: 11/25/16 16:47 Dose: Not Given Daptomycin 650 mg/ Sodium (Chloride) 100 mls @ 100 mls/hr IVPB MWF@1800 [facility] Stop: 12/16/16 18:59 Last Admin: 11/25/16 21:47 Dose: 100 mls/hr Insulin Detemir (Levemir) 6 units SC HS [facility] Last Admin: 11/25/16 22:41 Dose: 6 units Insulin Human Lispro (Humalog) 4 units SC AC [facility] Last Admin: 11/26/16 09:04 Dose: 4 units Lidocaine (Lidoderm) 1 ea TD DAILY [facility] Last Admin: 11/26/16 10:08 Dose: 1 ea Nystatin (Nystop Topical Powder) 1 applic TOP BID [facility] Last Admin: 11/26/16 10:08 Dose: 1 applic Ondansetron HCl (Zofran Inj) 4 mg IVP Q6 PRN PRN Reason: Nausea/Vomiting Last Admin: 09/19/16 10:26 Dose: 4 mg Pantoprazole Sodium (Protonix Ec Tab) 40 mg PO DAILY [facility] Last Admin: 11/26/16 10:07 Dose: 40 mg Sevelamer HCl (Renagel) 1,600 mg PO TID [facility] Last Admin: 11/26/16 10:00 Dose: 1,600 mg Topiramate (Topamax) 50 mg PO BID [facility] Last Admin: 11/26/16 10:07 Dose: 50 mg Vitamin B Complex/Vit C/Folic Acid (Nephro-Ajay) 1 tab PO DAILY [facility] Last Admin: 11/26/16 10:05 Dose: 1 tab - Labs Labs: 11/25/16 18:10 11/22/16 14:48 PT 17.2 Seconds (9.8-13.1) H 11/19/16 06:00 INR 1.5 (0.9-1.2) H 11/19/16 06:00 APTT 55.8 Seconds (25.6-37.1) H 11/19/16 06:00 Assessment and Plan (1) ESRD (end stage renal disease) Status: Chronic (2) Cellulitis of leg Status: Chronic
--- NOTE | 2016-11-26 13:11 | CP.PCM.PN ---
Subjective - Date & Time of Evaluation Date of Evaluation: 11/26/16 Time of Evaluation: 13:07 - Subjective Subjective: Patient was seen just as Dr. lozoya and nurse josé antonio Ocasio were finished the wound care. See their notes. Wound appears to be improving. Gentle washouts and negative pressre wound therapy are planned. Patient was able to wheel herself about the unit with some help. C/o constipation. Sennsakot and Colace ordered. Otherwise no changes. Objective - Vital Signs/Intake and Output Vital Signs (last 24 hours): Temp Pulse Resp BP Pulse Ox 98.7 F 74 18 96/43 L 95 11/26/16 09:00 11/26/16 09:00 11/26/16 09:00 11/26/16 09:00 11/26/16 09:00 - Medications Medications: Current Medications Acetaminophen (Tylenol 325mg Tab) 650 mg PO Q4 PRN PRN Reason: Fever >100.4 F Last Admin: 11/21/16 00:44 Dose: 650 mg Acetaminophen (Tylenol 325mg Tab) 650 mg PO Q4 PRN PRN Reason: Pain, moderate (4-7) Last Admin: 09/16/16 22:34 Dose: 650 mg Albuterol Sulfate (Albuterol 0.083% Inhal Barbie (2.5 Mg/3 Ml) Ud) 2.5 mg INH RQ4 PRN PRN Reason: Shortness of Breath Albuterol/Ipratropium (Duoneb 3 Mg/0.5 Mg (3 Ml) Ud) 3 ml INH RQ4 PRN PRN Reason: Shortness of Breath Last Admin: 11/11/16 07:39 Dose: 3 ml Apixaban (Eliquis) 5 mg PO BID [facility] PRN Reason: Protocol Last Admin: 11/26/16 10:06 Dose: 5 mg Aspirin (Ecotrin) 81 mg PO DAILY [facility] Last Admin: 11/26/16 10:07 Dose: 81 mg Atorvastatin Calcium (Lipitor) 40 mg PO DAILY [facility] Last Admin: 11/26/16 10:07 Dose: 40 mg Benzonatate (Tessalon Perles) 200 mg PO TID PRN PRN Reason: Cough Last Admin: 11/21/16 09:06 Dose: 200 mg [facility]scal[facility] Last Admin: 11/26/16 10:08 Dose: 500 mg Cinacalcet (Sensipar) 30 mg PO DAILY [facility] Last Admin: 11/26/16 10:04 Dose: 30 mg Collagenase (Santyl) 1 applic TOP DAILY [facility] Last Admin: 11/26/16 10:09 Dose: 1 applic Diphenhydramine HCl (Benadryl) 25 mg PO Q6 PRN PRN Reason: Itching / Pruritus Last Admin: 11/12/16 08:34 Dose: 25 mg Docusate Sodium (Colace) 100 mg PO BID [facility] Epoetin Tha (Procrit) 20,000 unit IV MWF [facility] Last Admin: 11/25/16 15:53 Dose: 20,000 unit Ergocalciferol (Drisdol 50,000 Intl Units Cap) 1 cap PO WED [facility] Last Admin: 11/20/16 10:00 Dose: 1 cap Fluconazole (Diflucan) 100 mg PO DAILY [facility] Last Admin: 11/26/16 10:07 Dose: 100 mg Gabapentin (Neurontin) 300 mg PO TID [facility] Last Admin: 11/26/16 12:32 Dose: 300 mg Hydrocortisone (Anusol-Hc) 1 applic [place] BID PRN PRN Reason: Inflammation Hydromorphone HCl (Dilaudid) 1 mg IVP Q2H PRN PRN Reason: Pain, severe (8-10) Last Admin: 11/26/16 12:30 Dose: 1 mg Meropenem 500 mg/ Sodium (Chloride) 100 mls @ 100 mls/hr IVPB DAILY@0100 [facility] Last Admin: 11/26/16 01:45 Dose: 100 mls/hr Gentamicin Sulfate/Sodium Chloride (Gentamicin 100mg/100ml Ns) 100 mg in 100 mls @ 100 mls/hr IVPB MWF [facility] Last Admin: 11/25/16 15:51 Dose: 100 mls/hr Tigecycline 25 mg/ Sodium (Chloride) 100 mls @ 100 mls/hr IVPB Q12 [facility] Last Admin: 11/26/16 10:03 Dose: 100 mls/hr Sodium Chloride (Sodium Chloride 0.45%) 500 mls @ 10 mls/hr IV .Q24H [facility] Last Admin: 11/25/16 16:47 Dose: Not Given Daptomycin 650 mg/ Sodium (Chloride) 100 mls @ 100 mls/hr IVPB MWF@1800 [facility] Stop: 12/16/16 18:59 Last Admin: 11/25/16 21:47 Dose: 100 mls/hr Insulin Detemir (Levemir) 6 units SC HS [facility] Last Admin: 11/25/16 22:41 Dose: 6 units Insulin Human Lispro (Humalog) 4 units SC AC [facility] Last Admin: 11/26/16 12:31 Dose: 4 units Lidocaine (Lidoderm) 1 ea TD DAILY [facility] Last Admin: 11/26/16 10:08 Dose: 1 ea Nystatin (Nystop Topical Powder) 1 applic TOP BID [facility] Last Admin: 11/26/16 10:08 Dose: 1 applic Ondansetron HCl (Zofran Inj) 4 mg IVP Q6 PRN PRN Reason: Nausea/Vomiting Last Admin: 09/19/16 10:26 Dose: 4 mg Pantoprazole Sodium (Protonix Ec Tab) 40 mg PO DAILY [facility] Last Admin: 11/26/16 10:07 Dose: 40 mg Sennosides (Senokot Tab) 25.8 mg PO [facility] Sevelamer HCl (Renagel) 1,600 mg PO TID [facility] Last Admin: 11/26/16 12:32 Dose: 1,600 mg Topiramate (Topamax) 50 mg PO BID [facility] Last Admin: 11/26/16 10:07 Dose: 50 mg Vitamin B Complex/Vit C/Folic Acid (Nephro-Ajay) 1 tab PO DAILY [facility] Last Admin: 11/26/16 10:05 Dose: 1 tab - Labs Labs: 11/25/16 18:10 11/22/16 14:48 PT 17.2 Seconds (9.8-13.1) H 11/19/16 06:00 INR 1.5 (0.9-1.2) H 11/19/16 06:00 APTT 55.8 Seconds (25.6-37.1) H 11/19/16 06:00 - Constitutional Appears: No Acute Distress - Head Exam Head Exam: NORMAL INSPECTION - Eye Exam Eye Exam: Normal appearance - ENT Exam ENT Exam: Mucous Membranes Moist - Neck Exam Neck Exam: Normal Inspection - Respiratory Exam Respiratory Exam: Clear to Ausculation Bilateral, NORMAL BREATHING PATTERN - Cardiovascular Exam Cardiovascular Exam: REGULAR RHYTHM, +S1, +S2 - GI/Abdominal Exam GI & Abdominal Exam: Soft - Extremities Exam Additional comments: Dressing dry and intact R Bk site. - Back Exam Back Exam: NORMAL INSPECTION - Neurological Exam Neurological Exam: Alert, Awake, Oriented x3 - Psychiatric Exam Psychiatric exam: Normal Affect, Normal Mood Assessment and Plan (1) Status post below knee amputation of right lower extremity Status: Acute (2) ESRD (end stage renal disease) on dialysis Status: Chronic (3) DM type 2 (diabetes mellitus, type 2) Status: Chronic (4) Coagulopathy Status: Chronic (5) Peripheral arterial occlusive disease Status: Chronic - Assessment and Plan (Free Text) Assessment: Making slow progress. Continue present care.
[2016-11-26] MEDS: Insulin Detemir 100 Units/ml Inj SC SCH (21:00)
--- NOTE | 2016-11-26 22:09 | CP.PCM.PN ---
Subjective - Date & Time of Evaluation Date of Evaluation: 11/26/16 Time of Evaluation: 20:05 - Subjective Subjective: Patient's wound is getting better. She is doing better in general. She is an ESRD on hemodialysis. Patient is trying to get the P.T. in ordeto be able to move and stand up if possible. Objective - Vital Signs/Intake and Output Vital Signs (last 24 hours): Temp Pulse Resp BP Pulse Ox 97.4 F L 102 H 18 91/50 L 97 11/26/16 17:00 11/26/16 17:00 11/26/16 17:00 11/26/16 17:00 11/26/16 17:00 - Medications Medications: Current Medications Acetaminophen (Tylenol 325mg Tab) 650 mg PO Q4 PRN PRN Reason: Fever >100.4 F Last Admin: 11/21/16 00:44 Dose: 650 mg Acetaminophen (Tylenol 325mg Tab) 650 mg PO Q4 PRN PRN Reason: Pain, moderate (4-7) Last Admin: 09/16/16 22:34 Dose: 650 mg Albuterol Sulfate (Albuterol 0.083% Inhal Barbie (2.5 Mg/3 Ml) Ud) 2.5 mg INH RQ4 PRN PRN Reason: Shortness of Breath Albuterol/Ipratropium (Duoneb 3 Mg/0.5 Mg (3 Ml) Ud) 3 ml INH RQ4 PRN PRN Reason: Shortness of Breath Last Admin: 11/11/16 07:39 Dose: 3 ml Apixaban (Eliquis) 5 mg PO BID [facility] PRN Reason: Protocol Last Admin: 11/26/16 16:39 Dose: 5 mg Aspirin (Ecotrin) 81 mg PO DAILY [facility] Last Admin: 11/26/16 10:07 Dose: 81 mg Atorvastatin Calcium (Lipitor) 40 mg PO DAILY [facility] Last Admin: 11/26/16 10:07 Dose: 40 mg Benzonatate (Tessalon Perles) 200 mg PO TID PRN PRN Reason: Cough Last Admin: 11/21/16 09:06 Dose: 200 mg Calcium Carbonate (Oscal) 500 mg PO BIDWM [facility] Last Admin: 11/26/16 16:39 Dose: 500 mg Calcium Carbonate (Oscal) 500 mg PO BIDWM [facility] Cinacalcet (Sensipar) 30 mg PO DAILY [facility] Last Admin: 11/26/16 10:04 Dose: 30 mg Collagenase (Santyl) 1 applic TOP DAILY [facility] Last Admin: 11/26/16 10:09 Dose: 1 applic Diphenhydramine HCl (Benadryl) 25 mg PO Q6 PRN PRN Reason: Itching / Pruritus Last Admin: 11/12/16 08:34 Dose: 25 mg Docusate Sodium (Colace) 100 mg PO BID [facility] Last Admin: 11/26/16 16:46 Dose: 100 mg Epoetin Tha (Procrit) 20,000 unit IV MWF [facility] Last Admin: 11/25/16 15:53 Dose: 20,000 unit Ergocalciferol (Drisdol 50,000 Intl Units Cap) 1 cap PO WED [facility] Last Admin: 11/20/16 10:00 Dose: 1 cap Fluconazole (Diflucan) 100 mg PO DAILY [facility] Last Admin: 11/26/16 10:07 Dose: 100 mg Gabapentin (Neurontin) 300 mg PO TID [facility] Last Admin: 11/26/16 16:39 Dose: 300 mg Hydrocortisone (Anusol-Hc) 1 applic [place] BID PRN PRN Reason: Inflammation Hydromorphone HCl (Dilaudid) 1 mg IVP Q2H PRN PRN Reason: Pain, severe (8-10) Last Admin: 11/26/16 18:15 Dose: 1 mg Meropenem 500 mg/ Sodium (Chloride) 100 mls @ 100 mls/hr IVPB DAILY@0100 [facility] Last Admin: 11/26/16 01:45 Dose: 100 mls/hr Gentamicin Sulfate/Sodium Chloride (Gentamicin 100mg/100ml Ns) 100 mg in 100 mls @ 100 mls/hr IVPB MWF [facility] Last Admin: 11/25/16 15:51 Dose: 100 mls/hr Tigecycline 25 mg/ Sodium (Chloride) 100 mls @ 100 mls/hr IVPB Q12 [facility] Last Admin: 11/26/16 20:59 Dose: 100 mls/hr Sodium Chloride (Sodium Chloride 0.45%) 500 mls @ 10 mls/hr IV .Q24H [facility] Last Admin: 11/26/16 15:27 Dose: Not Given Daptomycin 650 mg/ Sodium (Chloride) 100 mls @ 100 mls/hr IVPB MWF@1800 [facility] Stop: 12/16/16 18:59 Last Admin: 11/25/16 21:47 Dose: 100 mls/hr Insulin Detemir (Levemir) 6 units SC HS [facility] Last Admin: 11/26/16 21:00 Dose: 6 units Insulin Human Lispro (Humalog) 4 units SC AC [facility] Last Admin: 11/26/16 16:40 Dose: 4 units Lidocaine (Lidoderm) 1 ea TD DAILY [facility] Last Admin: 11/26/16 10:08 Dose: 1 ea Nystatin (Nystop Topical Powder) 1 applic TOP BID [facility] Last Admin: 11/26/16 16:40 Dose: 1 applic Ondansetron HCl (Zofran Inj) 4 mg IVP Q6 PRN PRN Reason: Nausea/Vomiting Last Admin: 09/19/16 10:26 Dose: 4 mg Pantoprazole Sodium (Protonix Ec Tab) 40 mg PO DAILY [facility] Last Admin: 11/26/16 10:07 Dose: 40 mg Sennosides (Senokot Tab) 25.8 mg PO [facility] Sevelamer HCl (Renagel) 1,600 mg PO TID [facility] Last Admin: 11/26/16 16:38 Dose: 1,600 mg Topiramate (Topamax) 50 mg PO BID [facility] Last Admin: 11/26/16 16:39 Dose: 50 mg Vitamin B Complex/Vit C/Folic Acid (Nephro-Ajay) 1 tab PO DAILY [facility] Last Admin: 11/26/16 10:05 Dose: 1 tab - Labs Labs: 11/25/16 18:10 11/22/16 14:48 PT 17.2 Seconds (9.8-13.1) H 11/19/16 06:00 INR 1.5 (0.9-1.2) H 11/19/16 06:00 APTT 55.8 Seconds (25.6-37.1) H 11/19/16 06:00 Assessment and Plan (1) Diabetes Status: Chronic (2) ESRD (end stage renal disease) Status: Chronic (3) Cellulitis of leg Status: Chronic (4) Hyperlipidemia Status: Chronic (5) Back pain Status: Acute (6) Bacteremia due to Gram-negative bacteria Status: Acute (7) Diabetes mellitus type 2 with peripheral artery disease Status: Acute (8) PVD (peripheral vascular disease) Status: Acute (9) Osteomyelitis of right leg Status: Acute
[2016-11-27] MEDS: Meropenem 500 MG in Sodium Chloride 0.9% 100 ML IVPB SCH (00:26)
--- NOTE | 2016-11-27 01:22 | PN ---
ENDOCRINE FOLLOWUP NOTE DATE: 11/26/2016 LOCATION: Room 661. SUBJECTIVE: This is a 46-year-old female with recent uncontrolled type 2 insulin requiring diabetes now being followed closely for metabolic management. Her glycemic levels are fluctuating, but much improved at this time and the latest chemistry showed the BUN of 74, sodium 138, potassium 5.4, chloride 100, CO2 22, glucose 126, creatinine 7.8. Glucose values have ranged from 126-128 and 160 mg/dL. So at this time, we will continue the same basal and bolus insulin regimen as given with Levemir given as 6 units subcu at bedtime daily and Humalog given as 4 units subcu t.i.d. before meals as ordered. We will titrate incremental as indicated to optimize metabolic control. We will follow up with you. Irnee Ambrose MD
--- NOTE | 2016-11-27 07:26 | CP.PCM.PN ---
<Sb [place]ves - Last Filed: 11/27/16 07:24> Subjective - Date & Time of Evaluation Date of Evaluation: 11/27/16 Time of Evaluation: 07:24 - Subjective Subjective: Vascular surgery for Dr. Mccormack Pt s&yahir NOLAN. Pt being bathed. No complaints. Dressing changed yesterday. Tolerating diet. Working with PT. Objective - Vital Signs/Intake and Output Vital Signs (last 24 hours): Temp Pulse Resp BP Pulse Ox 97.9 F 103 H 19 90/44 L 97 11/27/16 00:00 11/27/16 00:00 11/27/16 00:00 11/27/16 00:00 11/27/16 00:00 - Medications Medications: Current Medications Acetaminophen (Tylenol 325mg Tab) 650 mg PO Q4 PRN PRN Reason: Fever >100.4 F Last Admin: 11/21/16 00:44 Dose: 650 mg Acetaminophen (Tylenol 325mg Tab) 650 mg PO Q4 PRN PRN Reason: Pain, moderate (4-7) Last Admin: 09/16/16 22:34 Dose: 650 mg Albuterol Sulfate (Albuterol 0.083% Inhal Barbie (2.5 Mg/3 Ml) Ud) 2.5 mg INH RQ4 PRN PRN Reason: Shortness of Breath Albuterol/Ipratropium (Duoneb 3 Mg/0.5 Mg (3 Ml) Ud) 3 ml INH RQ4 PRN PRN Reason: Shortness of Breath Last Admin: 11/11/16 07:39 Dose: 3 ml Apixaban (Eliquis) [address] [facility] PRN Reason: Protocol Last Admin: 11/26/16 16:39 Dose: 5 mg Aspirin (Ecotrin) [address] [facility] Last Admin: 11/26/16 10:07 Dose: 81 mg Atorvastatin Calcium (Lipitor) [address] [facility] Last Admin: 11/26/16 10:07 Dose: 40 mg Benzonatate (Tessalon Perles) 200 mg PO TID PRN PRN Reason: Cough Last Admin: 11/21/16 09:06 Dose: 200 mg Calcium Carbonate (Oscal) [address] [facility] Last Admin: 11/26/16 16:39 Dose: 500 mg Calcium Carbonate (Oscal) [address] [facility] Cinacalcet (Sensipar) [address] [facility] Last Admin: 11/26/16 10:04 Dose: 30 mg Collagenase (Santyl) [address] [facility] Last Admin: 11/26/16 10:09 Dose: 1 applic Diphenhydramine HCl (Benadryl) 25 mg PO Q6 PRN PRN Reason: Itching / Pruritus Last Admin: 11/12/16 08:34 Dose: 25 mg Docusate Sodium (Colace) [address] [facility] Last Admin: 11/26/16 16:46 Dose: 100 mg Epoetin Tha (Procrit) 20,[address] [facility] Last Admin: 11/25/16 15:53 Dose: 20,000 unit Ergocalciferol (Drisdol 50,000 Intl Units Cap) [address] [facility] Last Admin: 11/20/16 10:00 Dose: 1 cap Fluconazole (Diflucan) [address] [facility] Last Admin: 11/26/16 10:07 Dose: 100 mg Gabapentin (Neurontin) [address] [facility] Last Admin: 11/26/16 16:39 Dose: 300 mg Hydrocortisone (Anusol-Hc) 1 applic SC BID PRN PRN Reason: Inflammation Hydromorphone HCl (Dilaudid) 1 mg IVP Q2H PRN PRN Reason: Pain, severe (8-10) Last Admin: 11/27/16 02:49 Dose: 1 mg Meropenem 500 mg/ Sodium (Chloride) 100 mls @ 100 mls/hr IVPB DAILY@0100 [facility] Last Admin: 11/27/16 00:26 Dose: 100 mls/hr Gentamicin Sulfate/Sodium Chloride (Gentamicin 100mg/100ml Ns) 100 mg in 100 mls @ 100 mls/hr IVPB MWF [facility] Last Admin: 11/25/16 15:51 Dose: 100 mls/hr Tigecycline 25 mg/ Sodium (Chloride) 100 mls @ 100 mls/hr IVPB Q12 [facility] Last Admin: 11/26/16 20:59 Dose: 100 mls/hr Sodium Chloride (Sodium Chloride 0.45%) 500 mls @ 10 mls/hr IV .Q24H [facility] Last Admin: 11/26/16 15:27 Dose: Not Given Daptomycin 650 mg/ Sodium (Chloride) 100 mls @ 100 mls/hr IVPB MWF@1800 [facility] Stop: 12/16/16 18:59 Last Admin: 11/25/16 21:47 Dose: 100 mls/hr Insulin Detemir (Levemir) [address] [facility] Last Admin: 11/26/16 21:00 Dose: 6 units Insulin Human Lispro (Humalog) [address] [facility] Last Admin: 11/26/16 16:40 Dose: 4 units Lidocaine (Lidoderm) [address] [facility] Last Admin: 11/26/16 10:08 Dose: 1 ea Nystatin (Nystop Topical Powder) [address] [facility] Last Admin: 11/26/16 16:40 Dose: 1 applic Ondansetron HCl (Zofran Inj) 4 mg IVP Q6 PRN PRN Reason: Nausea/Vomiting Last Admin: 09/19/16 10:26 Dose: 4 mg Pantoprazole Sodium (Protonix Ec Tab) [address] [facility] Last Admin: 11/26/16 10:07 Dose: 40 mg Sennosides (Senokot Tab) 25.8 mg PO [facility] Last Admin: 11/26/16 23:48 Dose: 25.8 mg Sevelamer HCl (Renagel) 1,[address] [facility] Last Admin: 11/26/16 16:38 Dose: 1,600 mg Topiramate (Topamax) [address] [facility] Last Admin: 11/26/16 16:39 Dose: 50 mg Vitamin B Complex/Vit C/Folic Acid (Nephro-Aajy) [address] [facility] Last Admin: 11/26/16 10:05 Dose: 1 tab - Labs Labs: 11/25/16 18:10 11/22/16 14:48 PT 17.2 Seconds (9.8-13.1) H 11/19/16 06:00 INR 1.5 (0.9-1.2) H 11/19/16 06:00 APTT 55.8 Seconds (25.6-37.1) H 11/19/16 06:00 - Constitutional Appears: No Acute Distress - Head Exam Head Exam: ATRAUMATIC, NORMAL INSPECTION, NORMOCEPHALIC - Eye Exam Eye Exam: EOMI, Normal appearance, PERRL Pupil Exam: NORMAL ACCOMODATION, PERRL - ENT Exam ENT Exam: Mucous Membranes Moist, Normal Exam - Neck Exam Neck Exam: Full ROM, Normal Inspection. absent: Lymphadenopathy - Respiratory Exam Respiratory Exam: Clear to Ausculation Bilateral, NORMAL BREATHING PATTERN - Cardiovascular Exam Cardiovascular Exam: REGULAR RHYTHM, +S1, +S2. absent: Murmur - GI/Abdominal Exam GI & Abdominal Exam: Soft, Normal Bowel Sounds. absent: Distended, Tenderness - Extremities Exam Extremities Exam: absent: Normal Inspection Additional comments: b/l BKA. R dressing intact. Granulation tissues on incision. open wound. one suture in the middle. Minimal purulent drainage. - Neurological Exam Neurological Exam: Alert, Awake, CN II-XII Intact, Normal Gait, Oriented x3 - Psychiatric Exam Psychiatric exam: Normal Affect, Normal Mood - Skin Skin Exam: Dry, Erythema, Warm. absent: Cyanosis Assessment and Plan - Assessment and Plan (Free Text) Assessment: 46F s/p R BKA (10/01) w/revision and wash out (11/19) -Will wet/dry dressing change PRN -c/w local wound care -c/w abx -will continue to follow closely -d/w attending <Raffy Mccormack - Last Filed: 11/27/16 14:53> Objective - Vital Signs/Intake and Output Vital Signs (last 24 hours): Temp Pulse Resp BP Pulse Ox 98.1 F 112 H 20 143/73 98 11/27/16 08:02 11/27/16 08:02 11/27/16 08:02 11/27/16 08:02 11/27/16 08:02 - Medications Medications: Current Medications Acetaminophen (Tylenol 325mg Tab) 650 mg PO Q4 PRN PRN Reason: Fever >100.4 F Last Admin: 11/21/16 00:44 Dose: 650 mg Acetaminophen (Tylenol 325mg Tab) 650 mg PO Q4 PRN PRN Reason: Pain, moderate (4-7) Last Admin: 09/16/16 22:34 Dose: 650 mg Albuterol Sulfate (Albuterol 0.083% Inhal Barbie (2.5 Mg/3 Ml) Ud) 2.5 mg INH RQ4 PRN PRN Reason: Shortness of Breath Albuterol/Ipratropium (Duoneb 3 Mg/0.5 Mg (3 Ml) Ud) 3 ml INH RQ4 PRN PRN Reason: Shortness of Breath Last Admin: 11/11/16 07:39 Dose: 3 ml Apixaban (Eliquis) 5 mg PO BID [facility] PRN Reason: Protocol Last Admin: 11/27/16 08:30 Dose: 5 mg Aspirin (Ecotrin) [address] [facility] Last Admin: 11/27/16 08:32 Dose: 81 mg Atorvastatin Calcium (Lipitor) [address] [facility] Last Admin: 11/27/16 08:30 Dose: 40 mg Benzonatate (Tessalon Perles) 200 mg PO TID PRN PRN Reason: Cough Last Admin: 11/21/16 09:06 Dose: 200 mg Calcium Carbonate (Oscal) [address] [facility] Last Admin: 11/27/16 09:03 Dose: 500 mg Cinacalcet (Sensipar) [address] [facility] Last Admin: 11/27/16 08:33 Dose: 30 mg Collagenase (Santyl) [address] [facility] Last Admin: 11/26/16 10:09 Dose: 1 applic Diphenhydramine HCl (Benadryl) 25 mg PO Q6 PRN PRN Reason: Itching / Pruritus Last Admin: 11/12/16 08:34 Dose: 25 mg Docusate Sodium (Colace) [address] [facility] Last Admin: 11/27/16 08:32 Dose: 100 mg Epoetin Tha (Procrit) 20,[address] [facility] Last Admin: 11/27/16 12:50 Dose: 20,000 unit Ergocalciferol (Drisdol 50,000 Intl Units Cap) [address] [facility] Last Admin: 11/27/16 08:32 Dose: 1 cap Fluconazole (Diflucan) [address] [facility] Last Admin: 11/27/16 08:31 Dose: 100 mg Gabapentin (Neurontin) [address] [facility] Last Admin: 11/27/16 12:51 Dose: 300 mg Hydrocortisone (Anusol-Hc) 1 applic SC BID PRN PRN Reason: Inflammation Hydromorphone HCl (Dilaudid) 1 mg IVP Q2H PRN PRN Reason: Pain, severe (8-10) Last Admin: 11/27/16 14:11 Dose: 1 mg Meropenem 500 mg/ Sodium (Chloride) 100 mls @ 100 mls/hr IVPB DAILY@0100 [facility] Last Admin: 11/27/16 00:26 Dose: 100 mls/hr Gentamicin Sulfate/Sodium Chloride (Gentamicin 100mg/100ml Ns) 100 mg in 100 mls @ 100 mls/hr IVPB MWF [facility] Last Admin: 11/27/16 08:29 Dose: 100 mls/hr Tigecycline 25 mg/ Sodium (Chloride) 100 mls @ 100 mls/hr IVPB Q12 [facility] Last Admin: 11/27/16 09:37 Dose: 100 mls/hr Sodium Chloride (Sodium Chloride 0.45%) 500 mls @ 10 mls/hr IV .Q24H [facility] Last Admin: 11/26/16 15:27 Dose: Not Given Daptomycin 650 mg/ Sodium (Chloride) 100 mls @ 100 mls/hr IVPB MWF@1800 [facility] Stop: 12/16/16 18:59 Last Admin: 11/25/16 21:47 Dose: 100 mls/hr Insulin Detemir (Levemir) 6 units SC [facility] Last Admin: 11/26/16 21:00 Dose: 6 units Insulin Human Lispro (Humalog) [address] [facility] Last Admin: 11/27/16 12:52 Dose: 4 units Lidocaine (Lidoderm) [address] [facility] Last Admin: 11/27/16 08:30 Dose: 1 ea Nystatin (Nystop Topical Powder) [address] [facility] Last Admin: 11/27/16 08:32 Dose: 1 applic Ondansetron HCl (Zofran Inj) 4 mg IVP Q6 PRN PRN Reason: Nausea/Vomiting Last Admin: 09/19/16 10:26 Dose: 4 mg Pantoprazole Sodium (Protonix Ec Tab) [address] [facility] Last Admin: 11/27/16 08:32 Dose: 40 mg Sennosides (Senokot Tab) 25.[address] [facility] Last Admin: 11/26/16 23:48 Dose: 25.8 mg Sevelamer HCl (Renagel) 1,[address] [facility] Last Admin: 11/27/16 12:51 Dose: 1,600 mg Topiramate (Topamax) [address] [facility] Last Admin: 11/27/16 08:32 Dose: 50 mg Vitamin B Complex/Vit C/Folic Acid (Nephro-Ajay) 1 tab PO DAILY [facility] Last Admin: 11/27/16 08:30 Dose: 1 tab - Labs Labs: 11/25/16 18:10 11/22/16 14:48 PT 17.2 Seconds (9.8-13.1) H 11/19/16 06:00 INR 1.5 (0.9-1.2) H 11/19/16 06:00 APTT 55.8 Seconds (25.6-37.1) H 11/19/16 06:00 Assessment and Plan - Assessment and Plan (Free Text) Plan: Patient seen and examined. Wound appears to be granulating quite well with no krystal pus. There is no large amount of necrotic tissue. COntinue current care.
[2016-11-27] MEDS: Gentamicin 100mg/100ml NS 100 MG/100 ML BAG IVPB SCH (08:29)
[2016-11-27] MEDS: Multivitamin Vitamin B Complex (Nephro-Vite) Tab PO SCH (08:30)
[2016-11-27] MEDS: Lidocaine 5% Patch TD SCH (08:30)
[2016-11-27] MEDS: Insulin Lispro (humaLOG) 100 Units/ml Inj SC SCH ×3 (08:31→17:28)
[2016-11-27] MEDS: Ergocalciferol 50,000 Intl Units Cap PO SCH (08:32)
[2016-11-27] MEDS: Pantoprazole 40 mg EC Tab PO SCH (08:32)
[2016-11-27] MEDS: Santyl Collagenase OINTMENT TOP SCH (09:00)
[2016-11-27] MEDS: SODIUM CHLORIDE 0.9% IVPB SCH ×2 (09:37→21:30)
[2016-11-27] MEDS: TIGECYCLINE IVPB SCH ×2 (09:37→21:30)
--- NOTE | 2016-11-27 11:14 | CP.PCM.PN ---
Subjective - Date & Time of Evaluation Date of Evaluation: 11/27/16 Time of Evaluation: 11:11 - Subjective Subjective: Patient and bed no significant changes reported No new events reported Hemodialysis about to start now I discussed the ordered with the dialysis nurse Sodium bath 138 Potassium bath 2 mEq Bicarbonate bath 34 Ultrafiltration 3000 mL as tolerated Physical exam chest clear no rales Heart no rubs Abdomen soft Again and this stage renal disease about to start dialysis now her regular dialysis White count noted to be within normal limit and also hemoglobin is stable around 10.0 Electrolyte noted acceptable . slightly high potassium expected predialysis. Continue monitoring Objective - Vital Signs/Intake and Output Vital Signs (last 24 hours): Temp Pulse Resp BP Pulse Ox 98.1 F 112 H 20 143/73 98 11/27/16 08:02 11/27/16 08:02 11/27/16 08:02 11/27/16 08:02 11/27/16 08:02 - Medications Medications: Current Medications Acetaminophen (Tylenol 325mg Tab) 650 mg PO Q4 PRN PRN Reason: Fever >100.4 F Last Admin: 11/21/16 00:44 Dose: 650 mg Acetaminophen (Tylenol 325mg Tab) 650 mg PO Q4 PRN PRN Reason: Pain, moderate (4-7) Last Admin: 09/16/16 22:34 Dose: 650 mg Albuterol Sulfate (Albuterol 0.083% Inhal Barbie (2.5 Mg/3 Ml) Ud) 2.5 mg INH RQ4 PRN PRN Reason: Shortness of Breath Albuterol/Ipratropium (Duoneb 3 Mg/0.5 Mg (3 Ml) Ud) 3 ml INH RQ4 PRN PRN Reason: Shortness of Breath Last Admin: 11/11/16 07:39 Dose: 3 ml Apixaban (Eliquis) 5 mg PO BID [facility] PRN Reason: Protocol Last Admin: 11/27/16 08:30 Dose: 5 mg Aspirin (Ecotrin) 81 mg PO DAILY [facility] Last Admin: 11/27/16 08:32 Dose: 81 mg Atorvastatin Calcium (Lipitor) 40 mg PO DAILY [facility] Last Admin: 11/27/16 08:30 Dose: 40 mg Benzonatate (Tessalon Perles) 200 mg PO TID PRN PRN Reason: Cough Last Admin: 11/21/16 09:06 Dose: 200 mg Calcium Carbonate (Oscal) 500 mg PO BIDWM [facility] Last Admin: 11/27/16 09:03 Dose: 500 mg Cinacalcet (Sensipar) 30 mg PO DAILY [facility] Last Admin: 11/27/16 08:33 Dose: 30 mg Collagenase (Santyl) 1 applic TOP DAILY [facility] Last Admin: 11/26/16 10:09 Dose: 1 applic Diphenhydramine HCl (Benadryl) 25 mg PO Q6 PRN PRN Reason: Itching / Pruritus Last Admin: 11/12/16 08:34 Dose: 25 mg Docusate Sodium (Colace) 100 mg PO BID [facility] Last Admin: 11/27/16 08:32 Dose: 100 mg Epoetin Tha (Procrit) 20,000 unit IV [facility] [place] Last Admin: 11/25/16 15:53 Dose: 20,000 unit Ergocalciferol (Drisdol 50,000 Intl Units Cap) 1 cap PO WED [facility] Last Admin: 11/27/16 08:32 Dose: 1 cap Fluconazole (Diflucan) 100 mg PO DAILY [facility] Last Admin: 11/27/16 08:31 Dose: 100 mg Gabapentin (Neurontin) 300 mg PO TID [facility] Last Admin: 11/27/16 08:30 Dose: 300 mg Hydrocortisone (Anusol-Hc) 1 applic [place] BID PRN PRN Reason: Inflammation Hydromorphone HCl (Dilaudid) 1 mg IVP Q2H PRN PRN Reason: Pain, severe (8-10) Last Admin: 11/27/16 09:49 Dose: 1 mg Meropenem 500 mg/ Sodium (Chloride) 100 mls @ 100 mls/hr IVPB DAILY@0100 [facility] Last Admin: 11/27/16 00:26 Dose: 100 mls/hr Gentamicin Sulfate/Sodium Chloride (Gentamicin 100mg/100ml Ns) 100 mg in 100 mls @ 100 mls/hr IVPB MWF [facility] Last Admin: 11/27/16 08:29 Dose: 100 mls/hr Tigecycline 25 mg/ Sodium (Chloride) 100 mls @ 100 mls/hr IVPB Q12 [facility] Last Admin: 11/27/16 09:37 Dose: 100 mls/hr Sodium Chloride (Sodium Chloride 0.45%) 500 mls @ 10 mls/hr IV .Q24H [facility] Last Admin: 11/26/16 15:27 Dose: Not Given Daptomycin 650 mg/ Sodium (Chloride) 100 mls @ 100 mls/hr IVPB MWF@1800 [facility] Stop: 12/16/16 18:59 Last Admin: 11/25/16 21:47 Dose: 100 mls/hr Insulin Detemir (Levemir) 6 units SC HS [facility] Last Admin: 11/26/16 21:00 Dose: 6 units Insulin Human Lispro (Humalog) 4 units SC AC [facility] Last Admin: 11/27/16 08:31 Dose: 4 units Lidocaine (Lidoderm) 1 ea TD DAILY [facility] Last Admin: 11/27/16 08:30 Dose: 1 ea Nystatin (Nystop Topical Powder) 1 applic TOP BID [facility] Last Admin: 11/27/16 08:32 Dose: 1 applic Ondansetron HCl (Zofran Inj) 4 mg IVP Q6 PRN PRN Reason: Nausea/Vomiting Last Admin: 09/19/16 10:26 Dose: 4 mg Pantoprazole Sodium (Protonix Ec Tab) 40 mg PO DAILY [facility] Last Admin: 11/27/16 08:32 Dose: 40 mg Sennosides (Senokot Tab) 25.8 mg PO [facility] Last Admin: 11/26/16 23:48 Dose: 25.8 mg Sevelamer HCl (Renagel) 1,600 mg PO TID [facility] Last Admin: 11/27/16 08:30 Dose: 1,600 mg Topiramate (Topamax) 50 mg PO BID [facility] Last Admin: 11/27/16 08:32 Dose: 50 mg Vitamin B Complex/Vit C/Folic Acid (Nephro-Ajay) 1 tab PO DAILY [facility] Last Admin: 11/27/16 08:30 Dose: 1 tab - Labs Labs: 11/25/16 18:10 11/22/16 14:48 PT 17.2 Seconds (9.8-13.1) H 11/19/16 06:00 INR 1.5 (0.9-1.2) H 11/19/16 06:00 APTT 55.8 Seconds (25.6-37.1) H 11/19/16 06:00 - Constitutional Appears: No Acute Distress - ENT Exam ENT Exam: Mucous Membranes Moist - Respiratory Exam Respiratory Exam: NORMAL BREATHING PATTERN. absent: Chest Wall Tenderness - GI/Abdominal Exam GI & Abdominal Exam: absent: Guarding - Extremities Exam Extremities Exam: absent: Calf Tenderness - Back Exam Back Exam: absent: CVA tenderness (L), CVA tenderness (R) - Neurological Exam Neurological Exam: Alert Assessment and Plan (1) ESRD (end stage renal disease) Status: Chronic (2) Cellulitis of leg Status: Chronic
[2016-11-27] MEDS: Epoetin Alfa 20000 UNIT/ML Inj IV SCH (12:50)
[2016-11-27 15:05] LABS: BASO # 0.1 K/uL (0.0-0.2); BASO % 0.6 % (0.0-2.0); EOS # 0.6 K/uL (0.0-0.7); EOS % 6.3 % (0.0-4.0); HEMATOCRIT 31.6 % (34.0-47.0); LYMPH # 1.5 K/uL (1.0-4.3); LYMPH % 16.9 % (20.0-40.0); MEAN CELL VOLUME 99.6 fl (81.0-99.0); MEAN CORPUSCULAR HEMOGLOBIN 31.2 pg (27.0-31.0); MEAN CORPUSCULAR HGB CONC 31.3 g/dL (33.0-37.0); MEAN PLATELET VOLUME 9.5 fl (7.2-11.7); MONO # 0.6 K/uL (0.0-0.8); MONO % 7.3 % (0.0-10.0); NEUT # 6.1 K/uL (1.8-7.0); NEUT % 68.9 % (50.0-75.0); NRBC % 0.1 % (0.0-0.0); RED CELL DISTRIBUTION WIDTH 21.9 % (11.5-14.5); WHITE BLOOD COUNT 8.9 K/uL (4.8-10.8)
[2016-11-27 15:16] LABS: ALB/GLOB RATIO 0.8 (1.0-2.1); BILIRUBIN,TOTAL 0.4 mg/dl (0.2-1.3); CALCIUM 8.9 mg/dL (8.4-10.2); POTASSIUM 4.5 MMOL/L (3.6-5.0); TOTAL PROTEIN 7.3 G/DL (6.3-8.2)
--- NOTE | 2016-11-27 17:36 | CP.PCM.PN ---
Subjective - Date & Time of Evaluation Date of Evaluation: 11/27/16 Time of Evaluation: 17:34 - Subjective Subjective: Notes by Drs. Guadarrama, Ting, and [place] appreciated. Patient has just completed hemodialysis and is feeling OK. She was unable to do much PT today, but she looks forward to that for tomorrow. Continues on 4 iv and 1 po antibiotic with good results- wound has no necrosis or pus according to Dr. Mccormack. DM controlled. No seizures. Hypotension yesterday, so fluid restriction was discontinued. Blood pressures are ok today. Objective - Vital Signs/Intake and Output Vital Signs (last 24 hours): Temp Pulse Resp BP Pulse Ox 97.6 F 104 H 17 103/64 98 11/27/16 15:39 11/27/16 15:39 11/27/16 15:39 11/27/16 15:39 11/27/16 15:39 - Medications Medications: Current Medications Acetaminophen (Tylenol 325mg Tab) 650 mg PO Q4 PRN PRN Reason: Fever >100.4 F Last Admin: 11/21/16 00:44 Dose: 650 mg Acetaminophen (Tylenol 325mg Tab) 650 mg PO Q4 PRN PRN Reason: Pain, moderate (4-7) Last Admin: 09/16/16 22:34 Dose: 650 mg Albuterol Sulfate (Albuterol 0.083% Inhal Barbie (2.5 Mg/3 Ml) Ud) 2.5 mg INH RQ4 PRN PRN Reason: Shortness of Breath Albuterol/Ipratropium (Duoneb 3 Mg/0.5 Mg (3 Ml) Ud) 3 ml INH RQ4 PRN PRN Reason: Shortness of Breath Last Admin: 11/11/16 07:39 Dose: 3 ml Apixaban (Eliquis) 5 mg PO BID [facility] PRN Reason: Protocol Last Admin: 11/27/16 17:28 Dose: 5 mg Aspirin (Ecotrin) 81 mg PO DAILY [facility] Last Admin: 11/27/16 08:32 Dose: 81 mg Atorvastatin Calcium (Lipitor) 40 mg PO DAILY [facility] Last Admin: 11/27/16 08:30 Dose: 40 mg Benzonatate (Tessalon Perles) 200 mg PO TID PRN PRN Reason: Cough Last Admin: 11/21/16 09:06 Dose: 200 mg Calcium Carbonate (Oscal) 500 mg PO BIDWM [facility] Last Admin: 11/27/16 17:29 Dose: 500 mg Cinacalcet (Sensipar) 30 mg PO DAILY [facility] Last Admin: 11/27/16 08:33 Dose: 30 mg Collagenase (Santyl) 1 applic TOP DAILY [facility] Last Admin: 11/26/16 10:09 Dose: 1 applic Diphenhydramine HCl (Benadryl) 25 mg PO Q6 PRN PRN Reason: Itching / Pruritus Last Admin: 11/12/16 08:34 Dose: 25 mg Docusate Sodium (Colace) 100 mg PO BID [facility] Last Admin: 11/27/16 17:28 Dose: 100 mg Epoetin Tha (Procrit) 20,000 unit IV [facility] [place] Last Admin: 11/27/16 12:50 Dose: 20,000 unit Ergocalciferol (Drisdol 50,000 Intl Units Cap) 1 cap PO WED [facility] Last Admin: 11/27/16 08:32 Dose: 1 cap Fluconazole (Diflucan) 100 mg PO DAILY [facility] Last Admin: 11/27/16 08:31 Dose: 100 mg Gabapentin (Neurontin) 300 mg PO TID [facility] Last Admin: 11/27/16 17:28 Dose: 300 mg Hydrocortisone (Anusol-Hc) 1 applic [place] BID PRN PRN Reason: Inflammation Hydromorphone HCl (Dilaudid) 1 mg IVP Q2H PRN PRN Reason: Pain, severe (8-10) Last Admin: 11/27/16 14:11 Dose: 1 mg Meropenem 500 mg/ Sodium (Chloride) 100 mls @ 100 mls/hr IVPB DAILY@0100 [facility] Last Admin: 11/27/16 00:26 Dose: 100 mls/hr Gentamicin Sulfate/Sodium Chloride (Gentamicin 100mg/100ml Ns) 100 mg in 100 mls @ 100 mls/hr IVPB MWF [facility] Last Admin: 11/27/16 08:29 Dose: 100 mls/hr Tigecycline 25 mg/ Sodium (Chloride) 100 mls @ 100 mls/hr IVPB Q12 [facility] Last Admin: 11/27/16 09:37 Dose: 100 mls/hr Sodium Chloride (Sodium Chloride 0.45%) 500 mls @ 10 mls/hr IV .Q24H [facility] Last Admin: 11/27/16 17:29 Dose: 10 mls/hr Daptomycin 650 mg/ Sodium (Chloride) 100 mls @ 100 mls/hr IVPB MWF@1800 [facility] Stop: 12/16/16 18:59 Last Admin: 11/25/16 21:47 Dose: 100 mls/hr Insulin Detemir (Levemir) 6 units SC HS [facility] Last Admin: 11/26/16 21:00 Dose: 6 units Insulin Human Lispro (Humalog) 4 units SC AC [facility] Last Admin: 11/27/16 17:28 Dose: 4 units Lidocaine (Lidoderm) 1 ea TD DAILY [facility] Last Admin: 11/27/16 08:30 Dose: 1 ea Nystatin (Nystop Topical Powder) 1 applic TOP BID [facility] Last Admin: 11/27/16 17:29 Dose: 1 applic Ondansetron HCl (Zofran Inj) 4 mg IVP Q6 PRN PRN Reason: Nausea/Vomiting Last Admin: 09/19/16 10:26 Dose: 4 mg Pantoprazole Sodium (Protonix Ec Tab) 40 mg PO DAILY [facility] Last Admin: 11/27/16 08:32 Dose: 40 mg Sennosides (Senokot Tab) 25.8 mg PO HS [facility] Last Admin: 11/26/16 23:48 Dose: 25.8 mg Sevelamer HCl (Renagel) 1,600 mg PO TID [facility] Last Admin: 11/27/16 17:27 Dose: 1,600 mg Topiramate (Topamax) 50 mg PO BID [facility] Last Admin: 11/27/16 17:28 Dose: 50 mg Vitamin B Complex/Vit C/Folic Acid (Nephro-Ajay) 1 tab PO DAILY [facility] Last Admin: 11/27/16 08:30 Dose: 1 tab - Labs Labs: 11/27/16 14:30 11/27/16 14:30 PT 17.2 Seconds (9.8-13.1) H 11/19/16 06:00 INR 1.5 (0.9-1.2) H 11/19/16 06:00 APTT 55.8 Seconds (25.6-37.1) H 11/19/16 06:00 - Constitutional Appears: No Acute Distress - Head Exam Head Exam: NORMAL INSPECTION - Eye Exam Eye Exam: Normal appearance - ENT Exam ENT Exam: Mucous Membranes Moist - Neck Exam Neck Exam: Normal Inspection - Respiratory Exam Respiratory Exam: Clear to Ausculation Bilateral, NORMAL BREATHING PATTERN - Cardiovascular Exam Cardiovascular Exam: REGULAR RHYTHM, +S1, +S2 - GI/Abdominal Exam GI & Abdominal Exam: Soft - Extremities Exam Additional comments: All as before. R BK site dressing is dry and intact. - Back Exam Back Exam: NORMAL INSPECTION - Neurological Exam Neurological Exam: Alert, Awake, CN II-XII Intact, Oriented x3 - Psychiatric Exam Psychiatric exam: Normal Affect, Normal Mood - Skin Additional comments: Clear except for R BK aputation site. Assessment and Plan (1) Status post below knee amputation of right lower extremity Assessment & Plan: Healing is taking place. Continue present treatment. Status: Acute (2) ESRD (end stage renal disease) on dialysis Status: Chronic (3) DM type 2 (diabetes mellitus, type 2) Status: Chronic (4) Coagulopathy Status: Chronic (5) Peripheral arterial occlusive disease Status: Chronic
--- NOTE | 2016-11-27 22:29 | CP.PCM.PN ---
Subjective - Date & Time of Evaluation Date of Evaluation: 11/27/16 Time of Evaluation: 20:35 - Subjective Subjective: Patient is quiet today, she received Hemodialysis today. Her wound looks clean. More activity of the patient might help boosting her immunity to overcome her recurrent bacterial infections. DM is controlled. There is no seizures on Topamax 50 mg BID. She is awake, alert and oriented. Objective - Vital Signs/Intake and Output Vital Signs (last 24 hours): Temp Pulse Resp BP Pulse Ox 97.6 F 104 H 17 103/64 98 11/27/16 15:39 11/27/16 15:39 11/27/16 15:39 11/27/16 15:39 11/27/16 15:39 - Medications Medications: Current Medications Acetaminophen (Tylenol 325mg Tab) 650 mg PO Q4 PRN PRN Reason: Fever >100.4 F Last Admin: 11/21/16 00:44 Dose: 650 mg Acetaminophen (Tylenol 325mg Tab) 650 mg PO Q4 PRN PRN Reason: Pain, moderate (4-7) Last Admin: 09/16/16 22:34 Dose: 650 mg Albuterol Sulfate (Albuterol 0.083% Inhal Barbie (2.5 Mg/3 Ml) Ud) 2.5 mg INH RQ4 PRN PRN Reason: Shortness of Breath Albuterol/Ipratropium (Duoneb 3 Mg/0.5 Mg (3 Ml) Ud) 3 ml INH RQ4 PRN PRN Reason: Shortness of Breath Last Admin: 11/11/16 07:39 Dose: 3 ml Apixaban (Eliquis) 5 mg PO BID [facility] PRN Reason: Protocol Last Admin: 11/27/16 17:28 Dose: 5 mg Aspirin (Ecotrin) 81 mg PO DAILY [facility] Last Admin: 11/27/16 08:32 Dose: 81 mg Atorvastatin Calcium (Lipitor) 40 mg PO DAILY [facility] Last Admin: 11/27/16 08:30 Dose: 40 mg Benzonatate (Tessalon Perles) 200 mg PO TID PRN PRN Reason: Cough Last Admin: 11/21/16 09:06 Dose: 200 mg Calcium Carbonate (Oscal) 500 mg PO BIDWM [facility] Last Admin: 11/27/16 17:29 Dose: 500 mg Cinacalcet (Sensipar) 30 mg PO DAILY [facility] Last Admin: 11/27/16 08:33 Dose: 30 mg Collagenase (Santyl) 1 applic TOP DAILY [facility] Last Admin: 11/27/16 09:00 Dose: Not Given Diphenhydramine HCl (Benadryl) 25 mg PO Q6 PRN PRN Reason: Itching / Pruritus Last Admin: 11/12/16 08:34 Dose: 25 mg Docusate Sodium (Colace) 100 mg PO BID [facility] Last Admin: 11/27/16 17:28 Dose: 100 mg Epoetin Tha (Procrit) 20,000 unit IV MWF [facility] Last Admin: 11/27/16 12:50 Dose: 20,000 unit Ergocalciferol (Drisdol 50,000 Intl Units Cap) 1 cap PO WED [facility] Last Admin: 11/27/16 08:32 Dose: 1 cap Fluconazole (Diflucan) 100 mg PO DAILY [facility] Last Admin: 11/27/16 08:31 Dose: 100 mg Gabapentin (Neurontin) 300 mg PO TID [facility] Last Admin: 11/27/16 17:28 Dose: 300 mg Hydrocortisone (Anusol-Hc) 1 applic [place] BID PRN PRN Reason: Inflammation Hydromorphone HCl (Dilaudid) 1 mg IVP Q2H PRN PRN Reason: Pain, severe (8-10) Last Admin: 11/27/16 17:44 Dose: 1 mg Meropenem 500 mg/ Sodium (Chloride) 100 mls @ 100 mls/hr IVPB DAILY@0100 [facility] Last Admin: 11/27/16 00:26 Dose: 100 mls/hr Gentamicin Sulfate/Sodium Chloride (Gentamicin 100mg/100ml Ns) 100 mg in 100 mls @ 100 mls/hr IVPB MWF [facility] Last Admin: 11/27/16 08:29 Dose: 100 mls/hr Tigecycline 25 mg/ Sodium (Chloride) 100 mls @ 100 mls/hr IVPB Q12 [facility] Last Admin: 11/27/16 09:37 Dose: 100 mls/hr Sodium Chloride (Sodium Chloride 0.45%) 500 mls @ 10 mls/hr IV .Q24H [facility] Last Admin: 11/27/16 17:29 Dose: 10 mls/hr Daptomycin 650 mg/ Sodium (Chloride) 100 mls @ 100 mls/hr IVPB MWF@1800 [facility] Stop: 12/16/16 18:59 Last Admin: 11/25/16 21:47 Dose: 100 mls/hr Insulin Detemir (Levemir) 6 units SC HS [facility] Last Admin: 11/26/16 21:00 Dose: 6 units Insulin Human Lispro (Humalog) 4 units SC AC [facility] Last Admin: 11/27/16 17:28 Dose: 4 units Lidocaine (Lidoderm) 1 ea TD DAILY [facility] Last Admin: 11/27/16 08:30 Dose: 1 ea Nystatin (Nystop Topical Powder) 1 applic TOP BID [facility] Last Admin: 11/27/16 17:29 Dose: 1 applic Ondansetron HCl (Zofran Inj) 4 mg IVP Q6 PRN PRN Reason: Nausea/Vomiting Last Admin: 09/19/16 10:26 Dose: 4 mg Pantoprazole Sodium (Protonix Ec Tab) 40 mg PO DAILY [facility] Last Admin: 11/27/16 08:32 Dose: 40 mg Sennosides (Senokot Tab) 25.8 mg PO [facility] Last Admin: 11/26/16 23:48 Dose: 25.8 mg Sevelamer HCl (Renagel) 1,600 mg PO TID [facility] Last Admin: 11/27/16 17:27 Dose: 1,600 mg Topiramate (Topamax) 50 mg PO BID [facility] Last Admin: 11/27/16 17:28 Dose: 50 mg Vitamin B Complex/Vit C/Folic Acid (Nephro-Ajay) 1 tab PO DAILY [facility] Last Admin: 11/27/16 08:30 Dose: 1 tab - Labs Labs: 11/27/16 14:30 11/27/16 14:30 PT 17.2 Seconds (9.8-13.1) H 11/19/16 06:00 INR 1.5 (0.9-1.2) H 11/19/16 06:00 APTT 55.8 Seconds (25.6-37.1) H 11/19/16 06:00 Assessment and Plan (1) Diabetes Status: Chronic (2) ESRD (end stage renal disease) Status: Chronic (3) Cellulitis of leg Status: Chronic (4) Hyperlipidemia Status: Chronic (5) Back pain Status: Acute (6) Bacteremia due to Gram-negative bacteria Status: Acute (7) Diabetes mellitus type 2 with peripheral artery disease Status: Acute (8) PVD (peripheral vascular disease) Status: Acute (9) Osteomyelitis of right leg Status: Acute
[2016-11-27] MEDS: Insulin Detemir 100 Units/ml Inj SC SCH (22:31)
[2016-11-28] MEDS: Meropenem 500 MG in Sodium Chloride 0.9% 100 ML IVPB SCH (00:47)
--- NOTE | 2016-11-28 08:20 | CP.PCM.PN ---
Subjective - Date & Time of Evaluation Date of Evaluation: 11/28/16 Time of Evaluation: 08:19 - Subjective Subjective: Pt is resting comfortably, with pin well controlled, and no signs of draining from the wound. Will repeat cbc in am. Objective - Vital Signs/Intake and Output Vital Signs (last 24 hours): Temp Pulse Resp BP Pulse Ox 989.6 F H 112 H 20 133/74 98 11/28/16 07:58 11/28/16 07:58 11/28/16 07:58 11/28/16 07:58 11/28/16 07:58 - Medications Medications: Current Medications Acetaminophen (Tylenol 325mg Tab) 650 mg PO Q4 PRN PRN Reason: Fever >100.4 F Last Admin: 11/21/16 00:44 Dose: 650 mg Acetaminophen (Tylenol 325mg Tab) 650 mg PO Q4 PRN PRN Reason: Pain, moderate (4-7) Last Admin: 09/16/16 22:34 Dose: 650 mg Albuterol Sulfate (Albuterol 0.083% Inhal Barbie (2.5 Mg/3 Ml) Ud) 2.5 mg INH RQ4 PRN PRN Reason: Shortness of Breath Albuterol/Ipratropium (Duoneb 3 Mg/0.5 Mg (3 Ml) Ud) 3 ml INH RQ4 PRN PRN Reason: Shortness of Breath Last Admin: 11/11/16 07:39 Dose: 3 ml Apixaban (Eliquis) 5 mg PO BID JASPER PRN Reason: Protocol Last Admin: 11/27/16 17:28 Dose: 5 mg Aspirin (Ecotrin) 81 mg PO DAILY [facility] Last Admin: 11/27/16 08:32 Dose: 81 mg Atorvastatin Calcium (Lipitor) 40 mg PO DAILY [facility] Last Admin: 11/27/16 08:30 Dose: 40 mg Benzonatate (Tessalon Perles) 200 mg PO TID PRN PRN Reason: Cough Last Admin: 11/21/16 09:06 Dose: 200 mg Calcium Carbonate (Oscal) 500 mg PO BIDWM [facility] Last Admin: 11/27/16 17:29 Dose: 500 mg Cinacalcet (Sensipar) 30 mg PO DAILY [facility] Last Admin: 11/27/16 08:33 Dose: 30 mg Collagenase (Santyl) 1 applic TOP DAILY [facility] Last Admin: 11/27/16 09:00 Dose: Not Given Diphenhydramine HCl (Benadryl) 25 mg PO Q6 PRN PRN Reason: Itching / Pruritus Last Admin: 11/12/16 08:34 Dose: 25 mg Docusate Sodium (Colace) 100 mg PO BID [facility] Last Admin: 11/27/16 17:28 Dose: 100 mg Epoetin Tha (Procrit) 20,000 unit IV MWF [facility] Last Admin: 11/27/16 12:50 Dose: 20,000 unit Ergocalciferol (Drisdol 50,000 Intl Units Cap) 1 cap PO WED [facility] Last Admin: 11/27/16 08:32 Dose: 1 cap Fluconazole (Diflucan) 100 mg PO DAILY [facility] Last Admin: 11/27/16 08:31 Dose: 100 mg Gabapentin (Neurontin) 300 mg PO TID [facility] Last Admin: 11/27/16 17:28 Dose: 300 mg Hydrocortisone (Anusol-Hc) 1 applic [place] BID PRN PRN Reason: Inflammation Hydromorphone HCl (Dilaudid) 1 mg IVP Q2H PRN PRN Reason: Pain, severe (8-10) Last Admin: 11/27/16 22:38 Dose: 1 mg Meropenem 500 mg/ Sodium (Chloride) 100 mls @ 100 mls/hr IVPB DAILY@0100 [facility] Last Admin: 11/28/16 00:47 Dose: 100 mls/hr Gentamicin Sulfate/Sodium Chloride (Gentamicin 100mg/100ml Ns) 100 mg in 100 mls @ 100 mls/hr IVPB MWF [facility] Last Admin: 11/27/16 08:29 Dose: 100 mls/hr Tigecycline 25 mg/ Sodium (Chloride) 100 mls @ 100 mls/hr IVPB Q12 [facility] Last Admin: 11/27/16 21:30 Dose: 100 mls/hr Sodium Chloride (Sodium Chloride 0.45%) 500 mls @ 10 mls/hr IV .Q24H [facility] Last Admin: 11/27/16 17:29 Dose: 10 mls/hr Daptomycin 650 mg/ Sodium (Chloride) 100 mls @ 100 mls/hr IVPB MWF@1800 [facility] Stop: 12/16/16 18:59 Last Admin: 11/27/16 22:59 Dose: 100 mls/hr Insulin Detemir (Levemir) 6 units SC HS [facility] Last Admin: 11/27/16 22:31 Dose: 6 units Insulin Human Lispro (Humalog) 4 units SC AC [facility] Last Admin: 11/27/16 17:28 Dose: 4 units Lidocaine (Lidoderm) 1 ea TD DAILY [facility] Last Admin: 11/27/16 08:30 Dose: 1 ea Nystatin (Nystop Topical Powder) 1 applic TOP BID [facility] Last Admin: 11/27/16 17:29 Dose: 1 applic Ondansetron HCl (Zofran Inj) 4 mg IVP Q6 PRN PRN Reason: Nausea/Vomiting Last Admin: 09/19/16 10:26 Dose: 4 mg Pantoprazole Sodium (Protonix Ec Tab) 40 mg PO DAILY [facility] Last Admin: 11/27/16 08:32 Dose: 40 mg Sennosides (Senokot Tab) 25.8 mg PO HS [facility] Last Admin: 11/27/16 22:43 Dose: 25.8 mg Sevelamer HCl (Renagel) 1,600 mg PO TID [facility] Last Admin: 11/27/16 17:27 Dose: 1,600 mg Topiramate (Topamax) 50 mg PO BID [facility] Last Admin: 11/27/16 17:28 Dose: 50 mg Vitamin B Complex/Vit C/Folic Acid (Nephro-Ajay) 1 tab PO DAILY [facility] Last Admin: 11/27/16 08:30 Dose: 1 tab - Labs Labs: 11/27/16 14:30 11/27/16 14:30 PT 17.2 Seconds (9.8-13.1) H 11/19/16 06:00 INR 1.5 (0.9-1.2) H 11/19/16 06:00 APTT 55.8 Seconds (25.6-37.1) H 11/19/16 06:00
[2016-11-28] MEDS: Multivitamin Vitamin B Complex (Nephro-Vite) Tab PO SCH (08:22)
[2016-11-28] MEDS: Lidocaine 5% Patch TD SCH (08:24)
[2016-11-28] MEDS: SODIUM CHLORIDE 0.9% IVPB SCH ×2 (08:25→21:29)
[2016-11-28] MEDS: TIGECYCLINE IVPB SCH ×2 (08:25→21:29)
[2016-11-28] MEDS: Pantoprazole 40 mg EC Tab PO SCH (08:25)
[2016-11-28] MEDS: Insulin Lispro (humaLOG) 100 Units/ml Inj SC SCH ×3 (08:27→17:33)
--- NOTE | 2016-11-28 10:09 | CP.PCM.PN ---
Subjective - Date & Time of Evaluation Date of Evaluation: 11/28/16 Time of Evaluation: 10:08 - Subjective Subjective: Patient awake appeared to be comfortable completed hemodialysis yesterday No changes has been done Scheduled for hemodialysis tomorrow Objective - Vital Signs/Intake and Output Vital Signs (last 24 hours): Temp Pulse Resp BP Pulse Ox 989.6 F H 112 H 20 133/74 98 11/28/16 07:58 11/28/16 07:58 11/28/16 07:58 11/28/16 07:58 11/28/16 07:58 - Medications Medications: Current Medications Acetaminophen (Tylenol 325mg Tab) 650 mg PO Q4 PRN PRN Reason: Fever >100.4 F Last Admin: 11/21/16 00:44 Dose: 650 mg Acetaminophen (Tylenol 325mg Tab) 650 mg PO Q4 PRN PRN Reason: Pain, moderate (4-7) Last Admin: 09/16/16 22:34 Dose: 650 mg Albuterol Sulfate (Albuterol 0.083% Inhal Barbie (2.5 Mg/3 Ml) Ud) 2.5 mg INH RQ4 PRN PRN Reason: Shortness of Breath Albuterol/Ipratropium (Duoneb 3 Mg/0.5 Mg (3 Ml) Ud) 3 ml INH RQ4 PRN PRN Reason: Shortness of Breath Last Admin: 11/11/16 07:39 Dose: 3 ml Apixaban (Eliquis) 5 mg PO BID JASPER PRN Reason: Protocol Last Admin: 11/28/16 08:22 Dose: 5 mg Aspirin (Ecotrin) 81 mg PO DAILY [facility] Last Admin: 11/28/16 08:23 Dose: 81 mg Atorvastatin Calcium (Lipitor) 40 mg PO DAILY [facility] Last Admin: 11/28/16 08:23 Dose: 40 mg Benzonatate (Tessalon Perles) 200 mg PO TID PRN PRN Reason: Cough Last Admin: 11/21/16 09:06 Dose: 200 mg Calcium Carbonate (Oscal) 500 mg PO BIDWM [facility] Last Admin: 11/28/16 08:23 Dose: 500 mg Cinacalcet (Sensipar) 30 mg PO DAILY [facility] Last Admin: 11/28/16 08:23 Dose: 30 mg Collagenase (Santyl) 1 applic TOP DAILY [facility] Last Admin: 11/27/16 09:00 Dose: Not Given Diphenhydramine HCl (Benadryl) 25 mg PO Q6 PRN PRN Reason: Itching / Pruritus Last Admin: 11/12/16 08:34 Dose: 25 mg Docusate Sodium (Colace) 100 mg PO BID [facility] Last Admin: 11/28/16 08:22 Dose: 100 mg Epoetin Tha (Procrit) 20,000 unit IV MWF [facility] Last Admin: 11/27/16 12:50 Dose: 20,000 unit Ergocalciferol (Drisdol 50,000 Intl Units Cap) 1 cap PO WED [facility] Last Admin: 11/27/16 08:32 Dose: 1 cap Fluconazole (Diflucan) 100 mg PO DAILY [facility] Last Admin: 11/28/16 08:23 Dose: 100 mg Gabapentin (Neurontin) 300 mg PO TID [facility] Last Admin: 11/28/16 08:24 Dose: 300 mg Hydrocortisone (Anusol-Hc) 1 applic [place] BID PRN PRN Reason: Inflammation Hydromorphone HCl (Dilaudid) 1 mg IVP Q2H PRN PRN Reason: Pain, severe (8-10) Last Admin: 11/28/16 08:18 Dose: 1 mg Meropenem 500 mg/ Sodium (Chloride) 100 mls @ 100 mls/hr IVPB DAILY@0100 [facility] Last Admin: 11/28/16 00:47 Dose: 100 mls/hr Gentamicin Sulfate/Sodium Chloride (Gentamicin 100mg/100ml Ns) 100 mg in 100 mls @ 100 mls/hr IVPB MWF [facility] Last Admin: 11/27/16 08:29 Dose: 100 mls/hr Tigecycline 25 mg/ Sodium (Chloride) 100 mls @ 100 mls/hr IVPB Q12 [facility] Last Admin: 11/28/16 08:25 Dose: 100 mls/hr Sodium Chloride (Sodium Chloride 0.45%) 500 mls @ 10 mls/hr IV .Q24H [facility] Last Admin: 11/27/16 17:29 Dose: 10 mls/hr Daptomycin 650 mg/ Sodium (Chloride) 100 mls @ 100 mls/hr IVPB MWF@1800 [facility] Stop: 12/16/16 18:59 Last Admin: 11/27/16 22:59 Dose: 100 mls/hr Insulin Detemir (Levemir) 6 units SC HS [facility] Last Admin: 11/27/16 22:31 Dose: 6 units Insulin Human Lispro (Humalog) 4 units SC AC [facility] Last Admin: 11/28/16 08:27 Dose: 4 units Lidocaine (Lidoderm) 1 ea TD DAILY [facility] Last Admin: 11/28/16 08:24 Dose: 1 ea Nystatin (Nystop Topical Powder) 1 applic TOP BID [facility] Last Admin: 11/28/16 08:26 Dose: 1 applic Ondansetron HCl (Zofran Inj) 4 mg IVP Q6 PRN PRN Reason: Nausea/Vomiting Last Admin: 09/19/16 10:26 Dose: 4 mg Pantoprazole Sodium (Protonix Ec Tab) 40 mg PO DAILY [facility] Last Admin: 11/28/16 08:25 Dose: 40 mg Sennosides (Senokot Tab) 25.8 mg PO HS [facility] Last Admin: 11/27/16 22:43 Dose: 25.8 mg Sevelamer HCl (Renagel) 1,600 mg PO TID [facility] Last Admin: 11/28/16 08:23 Dose: 1,600 mg Topiramate (Topamax) 50 mg PO BID [facility] Last Admin: 11/28/16 08:24 Dose: 50 mg Vitamin B Complex/Vit C/Folic Acid (Nephro-Ajay) 1 tab PO DAILY [facility] Last Admin: 11/28/16 08:22 Dose: 1 tab - Labs Labs: 11/27/16 14:30 11/27/16 14:30 PT 17.2 Seconds (9.8-13.1) H 11/19/16 06:00 INR 1.5 (0.9-1.2) H 11/19/16 06:00 APTT 55.8 Seconds (25.6-37.1) H 11/19/16 06:00 Assessment and Plan (1) ESRD (end stage renal disease) Status: Chronic (2) Cellulitis of leg Status: Chronic
--- NOTE | 2016-11-28 10:32 | CP.PCM.PN ---
<[place] - Last Filed: 11/28/16 10:28> Subjective - Date & Time of Evaluation Date of Evaluation: 11/28/16 Time of Evaluation: 10:29 - Subjective Subjective: Surgery for Dr. Easton NOLAN. Denies F/C/N/V/D/CP/SOB. Dressing changed yesterday. Objective - Vital Signs/Intake and Output Vital Signs (last 24 hours): Temp Pulse Resp BP Pulse Ox 989.6 F H 112 H 20 133/74 98 11/28/16 07:58 11/28/16 07:58 11/28/16 07:58 11/28/16 07:58 11/28/16 07:58 - Medications Medications: Current Medications Acetaminophen (Tylenol 325mg Tab) 650 mg PO Q4 PRN PRN Reason: Fever >100.4 F Last Admin: 11/21/16 00:44 Dose: 650 mg Acetaminophen (Tylenol 325mg Tab) 650 mg PO Q4 PRN PRN Reason: Pain, moderate (4-7) Last Admin: 09/16/16 22:34 Dose: 650 mg Albuterol Sulfate (Albuterol 0.083% Inhal Barbie (2.5 Mg/3 Ml) Ud) 2.5 mg INH RQ4 PRN PRN Reason: Shortness of Breath Albuterol/Ipratropium (Duoneb 3 Mg/0.5 Mg (3 Ml) Ud) 3 ml INH RQ4 PRN PRN Reason: Shortness of Breath Last Admin: 11/11/16 07:39 Dose: 3 ml Apixaban (Eliquis) 5 mg PO BID [facility] PRN Reason: Protocol Last Admin: 11/28/16 08:22 Dose: 5 mg Aspirin (Ecotrin) 81 mg PO DAILY [facility] Last Admin: 11/28/16 08:23 Dose: 81 mg Atorvastatin Calcium (Lipitor) 40 mg PO DAILY [facility] Last Admin: 11/28/16 08:23 Dose: 40 mg Benzonatate (Tessalon Perles) 200 mg PO TID PRN PRN Reason: Cough Last Admin: 11/21/16 09:06 Dose: 200 mg Calcium Carbonate (Oscal) 500 mg PO BIDWM [facility] Last Admin: 11/28/16 08:23 Dose: 500 mg Cinacalcet (Sensipar) 30 mg PO DAILY [facility] Last Admin: 11/28/16 08:23 Dose: 30 mg Collagenase (Santyl) 1 applic TOP DAILY [facility] Last Admin: 11/27/16 09:00 Dose: Not Given Diphenhydramine HCl (Benadryl) 25 mg PO Q6 PRN PRN Reason: Itching / Pruritus Last Admin: 11/12/16 08:34 Dose: 25 mg Docusate Sodium (Colace) 100 mg PO BID [facility] Last Admin: 11/28/16 08:22 Dose: 100 mg Epoetin Tha (Procrit) 20,000 unit IV MWF [facility] Last Admin: 11/27/16 12:50 Dose: 20,000 unit Ergocalciferol (Drisdol 50,000 Intl Units Cap) 1 cap PO WED [facility] Last Admin: 11/27/16 08:32 Dose: 1 cap Fluconazole (Diflucan) 100 mg PO DAILY [facility] Last Admin: 11/28/16 08:23 Dose: 100 mg Gabapentin (Neurontin) 300 mg PO TID [facility] Last Admin: 11/28/16 08:24 Dose: 300 mg Hydrocortisone (Anusol-Hc) 1 applic [place] BID PRN PRN Reason: Inflammation Hydromorphone HCl (Dilaudid) 1 mg IVP Q2H PRN PRN Reason: Pain, severe (8-10) Last Admin: 11/28/16 08:18 Dose: 1 mg Meropenem 500 mg/ Sodium (Chloride) 100 mls @ 100 mls/hr IVPB DAILY@0100 [facility] Last Admin: 11/28/16 00:47 Dose: 100 mls/hr Gentamicin Sulfate/Sodium Chloride (Gentamicin 100mg/100ml Ns) 100 mg in 100 mls @ 100 mls/hr IVPB MWF [facility] Last Admin: 11/27/16 08:29 Dose: 100 mls/hr Tigecycline 25 mg/ Sodium (Chloride) 100 mls @ 100 mls/hr IVPB Q12 [facility] Last Admin: 11/28/16 08:25 Dose: 100 mls/hr Sodium Chloride (Sodium Chloride 0.45%) 500 mls @ 10 mls/hr IV .Q24H [facility] Last Admin: 11/27/16 17:29 Dose: 10 mls/hr Daptomycin 650 mg/ Sodium (Chloride) 100 mls @ 100 mls/hr IVPB MWF@1800 [facility] Stop: 12/16/16 18:59 Last Admin: 11/27/16 22:59 Dose: 100 mls/hr Insulin Detemir (Levemir) 6 units SC HS [facility] Last Admin: 11/27/16 22:31 Dose: 6 units Insulin Human Lispro (Humalog) 4 units SC AC [facility] Last Admin: 11/28/16 08:27 Dose: 4 units Lidocaine (Lidoderm) 1 ea TD DAILY [facility] Last Admin: 11/28/16 08:24 Dose: 1 ea Nystatin (Nystop Topical Powder) 1 applic TOP BID [facility] Last Admin: 11/28/16 08:26 Dose: 1 applic Ondansetron HCl (Zofran Inj) 4 mg IVP Q6 PRN PRN Reason: Nausea/Vomiting Last Admin: 09/19/16 10:26 Dose: 4 mg Pantoprazole Sodium (Protonix Ec Tab) 40 mg PO DAILY [facility] Last Admin: 11/28/16 08:25 Dose: 40 mg Sennosides (Senokot Tab) 25.8 mg PO [facility] Last Admin: 11/27/16 22:43 Dose: 25.8 mg Sevelamer HCl (Renagel) 1,600 mg PO TID [facility] Last Admin: 11/28/16 08:23 Dose: 1,600 mg Topiramate (Topamax) 50 mg PO BID [facility] Last Admin: 11/28/16 08:24 Dose: 50 mg Vitamin B Complex/Vit C/Folic Acid (Nephro-Ajay) 1 tab PO DAILY [facility] Last Admin: 11/28/16 08:22 Dose: 1 tab - Labs Labs: 11/27/16 14:30 11/27/16 14:30 PT 17.2 Seconds (9.8-13.1) H 11/19/16 06:00 INR 1.5 (0.9-1.2) H 11/19/16 06:00 APTT 55.8 Seconds (25.6-37.1) H 11/19/16 06:00 - Constitutional Appears: No Acute Distress - Head Exam Head Exam: ATRAUMATIC, NORMAL INSPECTION, NORMOCEPHALIC - Eye Exam Eye Exam: EOMI, Normal appearance, PERRL Pupil Exam: NORMAL ACCOMODATION, PERRL - ENT Exam ENT Exam: Mucous Membranes Moist, Normal Exam - Neck Exam Neck Exam: Full ROM, Normal Inspection. absent: Lymphadenopathy - Respiratory Exam Respiratory Exam: NORMAL BREATHING PATTERN. absent: Accessory Muscle Use - Cardiovascular Exam Cardiovascular Exam: REGULAR RHYTHM - GI/Abdominal Exam GI & Abdominal Exam: Soft, Normal Bowel Sounds. absent: Distended, Tenderness - Exam Exam: NORMAL INSPECTION - Extremities Exam Extremities Exam: Tenderness. absent: Normal Inspection Additional comments: b/l BKA. Dressing C/D/I. Granulation tissues. Minimal purulent drainage. - Neurological Exam Neurological Exam: Alert, Awake, CN II-XII Intact, Normal Gait, Oriented x3 - Psychiatric Exam Psychiatric exam: Normal Affect, Normal Mood - Skin Skin Exam: Dry, Intact, Normal Color, Warm Assessment and Plan - Assessment and Plan (Free Text) Assessment: 46F s/p R BKA (10/01) w/revision and wash out (11/19) -Will wet/dry dressing change PRN -c/w local wound care -c/w abx -will continue to follow closely -Possible repeat washout -will d/w attending <Raffy Mccormack - Last Filed: 11/28/16 16:47> Objective - Vital Signs/Intake and Output Vital Signs (last 24 hours): Temp Pulse Resp BP Pulse Ox 97.8 F 106 H 17 94/56 L 98 11/28/16 16:13 11/28/16 16:13 11/28/16 16:13 11/28/16 16:13 11/28/16 16:13 - Medications Medications: Current Medications Acetaminophen (Tylenol 325mg Tab) 650 mg PO Q4 PRN PRN Reason: Fever >100.4 F Last Admin: 11/21/16 00:44 Dose: 650 mg Acetaminophen (Tylenol 325mg Tab) 650 mg PO Q4 PRN PRN Reason: Pain, moderate (4-7) Last Admin: 09/16/16 22:34 Dose: 650 mg Albuterol Sulfate (Albuterol 0.083% Inhal Barbie (2.5 Mg/3 Ml) Ud) 2.5 mg INH RQ4 PRN PRN Reason: Shortness of Breath Albuterol/Ipratropium (Duoneb 3 Mg/0.5 Mg (3 Ml) Ud) 3 ml INH RQ4 PRN PRN Reason: Shortness of Breath Last Admin: 11/11/16 07:39 Dose: 3 ml Apixaban (Eliquis) 5 mg PO BID [facility] PRN Reason: Protocol Last Admin: 11/28/16 08:22 Dose: 5 mg Aspirin (Ecotrin) 81 mg PO DAILY [facility] Last Admin: 11/28/16 08:23 Dose: 81 mg Atorvastatin Calcium (Lipitor) 40 mg PO DAILY [facility] Last Admin: 11/28/16 08:23 Dose: 40 mg Benzonatate (Tessalon Perles) 200 mg PO TID PRN PRN Reason: Cough Last Admin: 11/21/16 09:06 Dose: 200 mg Calcium Carbonate (Oscal) 500 mg PO BIDWM [facility] Last Admin: 11/28/16 08:23 Dose: 500 mg Cinacalcet (Sensipar) 30 mg PO DAILY [facility] Last Admin: 11/28/16 08:23 Dose: 30 mg Diphenhydramine HCl (Benadryl) 25 mg PO Q6 PRN PRN Reason: Itching / Pruritus Last Admin: 11/12/16 08:34 Dose: 25 mg Docusate Sodium (Colace) 100 mg PO BID [facility] Last Admin: 11/28/16 08:22 Dose: 100 mg Epoetin Tha (Procrit) 20,000 unit IV MWF [facility] Last Admin: 11/27/16 12:50 Dose: 20,000 unit Ergocalciferol (Drisdol 50,000 Intl Units Cap) 1 cap PO WED [facility] Last Admin: 11/27/16 08:32 Dose: 1 cap Fluconazole (Diflucan) 100 mg PO DAILY [facility] Last Admin: 11/28/16 08:23 Dose: 100 mg Gabapentin (Neurontin) 300 mg PO TID [facility] Last Admin: 11/28/16 13:33 Dose: 300 mg Hydrocortisone (Anusol-Hc) 1 applic [place] BID PRN PRN Reason: Inflammation Hydromorphone HCl (Dilaudid) 1 mg IVP Q2H PRN PRN Reason: Pain, severe (8-10) Last Admin: 11/28/16 16:10 Dose: 1 mg Meropenem 500 mg/ Sodium (Chloride) 100 mls @ 100 mls/hr IVPB DAILY@0100 [facility] Last Admin: 11/28/16 00:47 Dose: 100 mls/hr Gentamicin Sulfate/Sodium Chloride (Gentamicin 100mg/100ml Ns) 100 mg in 100 mls @ 100 mls/hr IVPB MWF [facility] Last Admin: 11/27/16 08:29 Dose: 100 mls/hr Tigecycline 25 mg/ Sodium (Chloride) 100 mls @ 100 mls/hr IVPB Q12 [facility] Last Admin: 11/28/16 08:25 Dose: 100 mls/hr Sodium Chloride (Sodium Chloride 0.45%) 500 mls @ 10 mls/hr IV .Q24H [facility] Last Admin: 11/28/16 16:24 Dose: 10 mls/hr Daptomycin 650 mg/ Sodium (Chloride) 100 mls @ 100 mls/hr IVPB MWF@1800 [facility] Stop: 12/16/16 18:59 Last Admin: 11/27/16 22:59 Dose: 100 mls/hr Insulin Detemir (Levemir) 6 units SC [facility] Last Admin: 11/27/16 22:31 Dose: 6 units Insulin Human Lispro (Humalog) 4 units SC AC [facility] Last Admin: 11/28/16 13:26 Dose: 4 units Lidocaine (Lidoderm) 1 ea TD DAILY [facility] Last Admin: 11/28/16 08:24 Dose: 1 ea Nystatin (Nystop Topical Powder) 1 applic TOP BID [facility] Last Admin: 11/28/16 08:26 Dose: 1 applic Ondansetron HCl (Zofran Inj) 4 mg IVP Q6 PRN PRN Reason: Nausea/Vomiting Last Admin: 09/19/16 10:26 Dose: 4 mg Pantoprazole Sodium (Protonix Ec Tab) 40 mg PO DAILY [facility] Last Admin: 11/28/16 08:25 Dose: 40 mg Sennosides (Senokot Tab) 25.8 mg PO HS [facility] Last Admin: 11/27/16 22:43 Dose: 25.8 mg Sevelamer HCl (Renagel) 1,600 mg PO TID [facility] Last Admin: 11/28/16 13:26 Dose: 1,600 mg Topiramate (Topamax) 50 mg PO BID [facility] Last Admin: 11/28/16 08:24 Dose: 50 mg Vitamin B Complex/Vit C/Folic Acid (Nephro-Ajay) 1 tab PO DAILY [facility] Last Admin: 11/28/16 08:22 Dose: 1 tab - Labs Labs: 11/27/16 14:30 11/27/16 14:30 PT 17.2 Seconds (9.8-13.1) H 11/19/16 06:00 INR 1.5 (0.9-1.2) H 11/19/16 06:00 APTT 55.8 Seconds (25.6-37.1) H 11/19/16 06:00 Assessment and Plan - Assessment and Plan (Free Text) Plan: Patient seen and examined. She remained stable over last 24 hours with no systemic signs of infection. Right BKA is granulating well with modest amount of necrotic tissue but no krystal pus or purulence. Continue current care. I will look into washing out the wound in the OR with pulse lavage - possibly tomorrow.
--- NOTE | 2016-11-28 12:00 | PN ---
This is Dr. Irene Ambrose dictating an endocrinology follow up for patient Lizzeth Leo at [facility] Room 435 ICU This a 46 yo female with recent uncontrolled., type 2 insulin requiring diabetes who recently undergoing a deep debridement procedure of her right, below knee amputation stump with underlying osteomyelitis as noted. Her glycemic levels are fluctuating as her ____aura details also quite variable and suboptimal at this time. The glucose levels have raised from 87 to 107 at 109 mg /dL. Her latest chemistry showed: BUN 73 Sodium 140 Potassium 6.0 Chloride 102 C02 24 Glucose 105 Creatinine 6.8 At this time we will continue the modified basal and bolus insulin regimen as given with Levemir given as 6 units, SQ at bedtime daily as ordered.Will alos continue the humalog given at low dose of 40 units, SQ BID before meals as given. Will titrate incremental dose indicated to optimize metabolic control. Will follow faithfully. End of dictation. Irene Ambrose MD
--- NOTE | 2016-11-28 13:17 | CP.PCM.PN ---
Subjective - Date & Time of Evaluation Date of Evaluation: 11/28/16 Time of Evaluation: 13:14 - Subjective Subjective: Notes by Ting Chowdhury, Thierry, and Evita Shepard appreciated. I have added CMP to the CBC that was ordered to keep track of LFT'S considering current antibiotics. She remains on IV daptomycin, tigacycline, meropenem and gentamicin as well as po fluconazole for infection R BK amputation site. Wound care pending. Patient is eating lunch, is comfortable and awaits occupational and physical therpay. Bowels moving better on Senns and Colace. DM controlled. HD proceeding well. Anticoagulation maintained. Objective - Vital Signs/Intake and Output Vital Signs (last 24 hours): Temp Pulse Resp BP Pulse Ox 989.6 F H 112 H 20 133/74 98 11/28/16 07:58 11/28/16 07:58 11/28/16 07:58 11/28/16 07:58 11/28/16 07:58 - Medications Medications: Current Medications Acetaminophen (Tylenol 325mg Tab) 650 mg PO Q4 PRN PRN Reason: Fever >100.4 F Last Admin: 11/21/16 00:44 Dose: 650 mg Acetaminophen (Tylenol 325mg Tab) 650 mg PO Q4 PRN PRN Reason: Pain, moderate (4-7) Last Admin: 09/16/16 22:34 Dose: 650 mg Albuterol Sulfate (Albuterol 0.083% Inhal Barbie (2.5 Mg/3 Ml) Ud) 2.5 mg INH RQ4 PRN PRN Reason: Shortness of Breath Albuterol/Ipratropium (Duoneb 3 Mg/0.5 Mg (3 Ml) Ud) 3 ml INH RQ4 PRN PRN Reason: Shortness of Breath Last Admin: 11/11/16 07:39 Dose: 3 ml Apixaban (Eliquis) 5 mg PO BID [facility] PRN Reason: Protocol Last Admin: 11/28/16 08:22 Dose: 5 mg Aspirin (Ecotrin) 81 mg PO DAILY [facility] Last Admin: 11/28/16 08:23 Dose: 81 mg Atorvastatin Calcium (Lipitor) 40 mg PO DAILY [facility] Last Admin: 11/28/16 08:23 Dose: 40 mg Benzonatate (Tessalon Perles) 200 mg PO TID PRN PRN Reason: Cough Last Admin: 11/21/16 09:06 Dose: 200 mg Calcium Carbonate (Oscal) 500 mg PO BIDWM [facility] Last Admin: 11/28/16 08:23 Dose: 500 mg Cinacalcet (Sensipar) 30 mg PO DAILY [facility] Last Admin: 11/28/16 08:23 Dose: 30 mg Collagenase (Santyl) 1 applic TOP DAILY [facility] Last Admin: 11/27/16 09:00 Dose: Not Given Diphenhydramine HCl (Benadryl) 25 mg PO Q6 PRN PRN Reason: Itching / Pruritus Last Admin: 11/12/16 08:34 Dose: 25 mg Docusate Sodium (Colace) 100 mg PO BID [facility] Last Admin: 11/28/16 08:22 Dose: 100 mg Epoetin Tha (Procrit) [facility] Last Admin: 11/27/16 12:50 Dose: 20,000 unit Ergocalciferol (Drisdol 50,000 Intl Units Cap) 1 cap PO WED [facility] Last Admin: 11/27/16 08:32 Dose: 1 cap Fluconazole (Diflucan) 100 mg PO DAILY [facility] Last Admin: 11/28/16 08:23 Dose: 100 mg Gabapentin (Neurontin) 300 mg PO TID [facility] Last Admin: 11/28/16 08:24 Dose: 300 mg Hydrocortisone (Anusol-Hc) 1 applic [place] BID PRN PRN Reason: Inflammation Hydromorphone HCl (Dilaudid) 1 mg IVP Q2H PRN PRN Reason: Pain, severe (8-10) Last Admin: 11/28/16 08:18 Dose: 1 mg Meropenem 500 mg/ Sodium (Chloride) 100 mls @ 100 mls/hr IVPB DAILY@0100 [facility] Last Admin: 11/28/16 00:47 Dose: 100 mls/hr Gentamicin Sulfate/Sodium Chloride (Gentamicin 100mg/100ml Ns) 100 mg in 100 mls @ 100 mls/hr IVPB MWF [facility] Last Admin: 11/27/16 08:29 Dose: 100 mls/hr Tigecycline 25 mg/ Sodium (Chloride) 100 mls @ 100 mls/hr IVPB Q12 [facility] Last Admin: 11/28/16 08:25 Dose: 100 mls/hr Sodium Chloride (Sodium Chloride 0.45%) 500 mls @ 10 mls/hr IV .Q24H [facility] Last Admin: 11/27/16 17:29 Dose: 10 mls/hr Daptomycin 650 mg/ Sodium (Chloride) 100 mls @ 100 mls/hr IVPB MWF@1800 [facility] Stop: 12/16/16 18:59 Last Admin: 11/27/16 22:59 Dose: 100 mls/hr Insulin Detemir (Levemir) 6 units SC HS [facility] Last Admin: 11/27/16 22:31 Dose: 6 units Insulin Human Lispro (Humalog) 4 units SC AC [facility] Last Admin: 11/28/16 08:27 Dose: 4 units Lidocaine (Lidoderm) 1 ea TD DAILY [facility] Last Admin: 11/28/16 08:24 Dose: 1 ea Nystatin (Nystop Topical Powder) 1 applic TOP BID [facility] Last Admin: 11/28/16 08:26 Dose: 1 applic Ondansetron HCl (Zofran Inj) 4 mg IVP Q6 PRN PRN Reason: Nausea/Vomiting Last Admin: 09/19/16 10:26 Dose: 4 mg Pantoprazole Sodium (Protonix Ec Tab) 40 mg PO DAILY [facility] Last Admin: 11/28/16 08:25 Dose: 40 mg Sennosides (Senokot Tab) 25.8 mg PO [facility] Last Admin: 11/27/16 22:43 Dose: 25.8 mg Sevelamer HCl (Renagel) 1,600 mg PO TID [facility] Last Admin: 11/28/16 08:23 Dose: 1,600 mg Topiramate (Topamax) 50 mg PO BID [facility] Last Admin: 11/28/16 08:24 Dose: 50 mg Vitamin B Complex/Vit C/Folic Acid (Nephro-Ajay) 1 tab PO DAILY [facility] Last Admin: 11/28/16 08:22 Dose: 1 tab - Labs Labs: 11/27/16 14:30 11/27/16 14:30 PT 17.2 Seconds (9.8-13.1) H 11/19/16 06:00 INR 1.5 (0.9-1.2) H 11/19/16 06:00 APTT 55.8 Seconds (25.6-37.1) H 11/19/16 06:00 - Constitutional Appears: No Acute Distress - Head Exam Head Exam: NORMAL INSPECTION - Eye Exam Eye Exam: Normal appearance - ENT Exam ENT Exam: Mucous Membranes Moist - Neck Exam Neck Exam: Normal Inspection Additional comments: R subclavian Permacath intact. - Respiratory Exam Respiratory Exam: Clear to Ausculation Bilateral, NORMAL BREATHING PATTERN - Cardiovascular Exam Cardiovascular Exam: REGULAR RHYTHM, +S1, +S2 - GI/Abdominal Exam GI & Abdominal Exam: Soft - Extremities Exam Additional comments: Right BK dressing dry and intact. L femoral vein PICC line intact. - Back Exam Back Exam: NORMAL INSPECTION - Neurological Exam Neurological Exam: Alert, Oriented x3 - Psychiatric Exam Psychiatric exam: Normal Affect, Normal Mood - Skin Skin Exam: Dry, Warm Assessment and Plan (1) Status post below knee amputation of right lower extremity Assessment & Plan: Continue wound care as per Dr. Mccormack. Status: Acute (2) ESRD (end stage renal disease) on dialysis Assessment & Plan: stable Status: Chronic (3) DM type 2 (diabetes mellitus, type 2) Assessment & Plan: controlled Status: Chronic (4) Coagulopathy Assessment & Plan: No current problems on Eliquis and aspirin. Status: Chronic (5) Peripheral arterial occlusive disease Status: Chronic
[2016-11-28] MEDS: Santyl Collagenase OINTMENT TOP SCH (13:18)
--- NOTE | 2016-11-28 15:49 | PN ---
ROOM: #[id number]. SUBJECTIVE: This is a 46-year-old female with recent uncontrolled type 2 insulin-requiring diabetes, now being followed closely postoperatively for diabetic management. She underwent a debridement of her right below-knee amputation stump with underlying osteomyelitis as noted. LABORATORY DATA: Her latest chemistry showed BUN of 60, sodium 139, potassium 4.5, chloride 102, CO2 26, glucose 103, and creatinine 5.9. ASSESSMENT AND PLAN: So at this time, we will continue the low-dose basal and bolus insulin regimen as given with Levemir given as 6 units subcutaneous at bedtime daily as ordered and Humalog given as 4 units subcu t.i.d. before meals as given. We will titrate incremental as indicated to optimize metabolic control. We will follow and advise accordingly. Irene Ambrose MD
[2016-11-28] MEDS: Insulin Detemir 100 Units/ml Inj SC SCH (22:30)
--- NOTE | 2016-11-29 00:27 | CP.PCM.PN ---
Subjective - Date & Time of Evaluation Date of Evaluation: 11/28/16 Time of Evaluation: 21:00 - Subjective Subjective: Infection looks under control clinically. She is not complaining of pain like before, only minimal pain from time to time for short period of time and the frequency is much less. She is receiving Anitibiotics for her infection and this looks to be effective. The Hemodialysis is as scheduled, M,W,F for her ESRD. Her next Hemodialysis is in AM. There is no reported Seizures, Topamax 50 mg BID is controlling her. She is eating well, active and interactive. Objective - Vital Signs/Intake and Output Vital Signs (last 24 hours): Temp Pulse Resp BP Pulse Ox 97.8 F 106 H 17 94/56 L 98 11/28/16 16:13 11/28/16 16:13 11/28/16 16:13 11/28/16 16:13 11/28/16 16:13 - Medications Medications: Current Medications Acetaminophen (Tylenol 325mg Tab) 650 mg PO Q4 PRN PRN Reason: Fever >100.4 F Last Admin: 11/21/16 00:44 Dose: 650 mg Acetaminophen (Tylenol 325mg Tab) 650 mg PO Q4 PRN PRN Reason: Pain, moderate (4-7) Last Admin: 09/16/16 22:34 Dose: 650 mg Albuterol Sulfate (Albuterol 0.083% Inhal Barbie (2.5 Mg/3 Ml) Ud) 2.5 mg INH RQ4 PRN PRN Reason: Shortness of Breath Albuterol/Ipratropium (Duoneb 3 Mg/0.5 Mg (3 Ml) Ud) 3 ml INH RQ4 PRN PRN Reason: Shortness of Breath Last Admin: 11/11/16 07:39 Dose: 3 ml Apixaban (Eliquis) 5 mg PO BID JASPER PRN Reason: Protocol Last Admin: 11/28/16 17:32 Dose: 5 mg Aspirin (Ecotrin) 81 mg PO DAILY [facility] Last Admin: 11/28/16 08:23 Dose: 81 mg Atorvastatin Calcium (Lipitor) 40 mg PO DAILY [facility] Last Admin: 11/28/16 08:23 Dose: 40 mg Benzonatate (Tessalon Perles) 200 mg PO TID PRN PRN Reason: Cough Last Admin: 11/21/16 09:06 Dose: 200 mg Calcium Carbonate (Oscal) 500 mg PO BIDWM [facility] Last Admin: 11/28/16 17:32 Dose: 500 mg Cinacalcet (Sensipar) 30 mg PO DAILY [facility] Last Admin: 11/28/16 08:23 Dose: 30 mg Diphenhydramine HCl (Benadryl) 25 mg PO Q6 PRN PRN Reason: Itching / Pruritus Last Admin: 11/12/16 08:34 Dose: 25 mg Docusate Sodium (Colace) 100 mg PO BID [facility] Last Admin: 11/28/16 17:32 Dose: 100 mg Epoetin Tha (Procrit) [facility] Last Admin: 11/27/16 12:50 Dose: 20,000 unit Ergocalciferol (Drisdol 50,000 Intl Units Cap) 1 cap PO WED [facility] Last Admin: 11/27/16 08:32 Dose: 1 cap Fluconazole (Diflucan) 100 mg PO DAILY [facility] Last Admin: 11/28/16 08:23 Dose: 100 mg Gabapentin (Neurontin) 300 mg PO TID [facility] Last Admin: 11/28/16 17:32 Dose: 300 mg Hydrocortisone (Anusol-Hc) 1 applic [place] BID PRN PRN Reason: Inflammation Hydromorphone HCl (Dilaudid) 1 mg IVP Q2H PRN PRN Reason: Pain, severe (8-10) Last Admin: 11/28/16 23:13 Dose: 1 mg Meropenem 500 mg/ Sodium (Chloride) 100 mls @ 100 mls/hr IVPB DAILY@0100 [facility] Last Admin: 11/28/16 00:47 Dose: 100 mls/hr Gentamicin Sulfate/Sodium Chloride (Gentamicin 100mg/100ml Ns) 100 mg in 100 mls @ 100 mls/hr IVPB MWF [facility] Last Admin: 11/27/16 08:29 Dose: 100 mls/hr Tigecycline 25 mg/ Sodium (Chloride) 100 mls @ 100 mls/hr IVPB Q12 [facility] Last Admin: 11/28/16 21:29 Dose: 100 mls/hr Sodium Chloride (Sodium Chloride 0.45%) 500 mls @ 10 mls/hr IV .Q24H [facility] Last Admin: 11/28/16 16:24 Dose: 10 mls/hr Daptomycin 650 mg/ Sodium (Chloride) 100 mls @ 100 mls/hr IVPB MWF@1800 [facility] Stop: 12/16/16 18:59 Last Admin: 11/27/16 22:59 Dose: 100 mls/hr Insulin Detemir (Levemir) 6 units SC HS [facility] Last Admin: 11/28/16 22:30 Dose: 6 units Insulin Human Lispro (Humalog) 4 units SC AC [facility] Last Admin: 11/28/16 17:33 Dose: 4 units Lidocaine (Lidoderm) 1 ea TD DAILY [facility] Last Admin: 11/28/16 08:24 Dose: 1 ea Nystatin (Nystop Topical Powder) 1 applic TOP BID [facility] Last Admin: 11/28/16 17:33 Dose: 1 applic Ondansetron HCl (Zofran Inj) 4 mg IVP Q6 PRN PRN Reason: Nausea/Vomiting Last Admin: 09/19/16 10:26 Dose: 4 mg Pantoprazole Sodium (Protonix Ec Tab) 40 mg PO DAILY [facility] Last Admin: 11/28/16 08:25 Dose: 40 mg Sennosides (Senokot Tab) 25.8 mg PO HS [facility] Last Admin: 11/28/16 22:31 Dose: 25.8 mg Sevelamer HCl (Renagel) 1,600 mg PO TID [facility] Last Admin: 11/28/16 17:32 Dose: 1,600 mg Topiramate (Topamax) 50 mg PO BID [facility] Last Admin: 11/28/16 17:32 Dose: 50 mg Vitamin B Complex/Vit C/Folic Acid (Nephro-Ajay) 1 tab PO DAILY [facility] Last Admin: 11/28/16 08:22 Dose: 1 tab - Labs Labs: 11/27/16 14:30 11/27/16 14:30 PT 17.2 Seconds (9.8-13.1) H 11/19/16 06:00 INR 1.5 (0.9-1.2) H 11/19/16 06:00 APTT 55.8 Seconds (25.6-37.1) H 11/19/16 06:00 Assessment and Plan (1) Diabetes Status: Chronic (2) ESRD (end stage renal disease) Status: Chronic (3) Cellulitis of leg Status: Chronic (4) Hyperlipidemia Status: Chronic (5) Back pain Status: Acute (6) Bacteremia due to Gram-negative bacteria Status: Acute (7) Diabetes mellitus type 2 with peripheral artery disease Status: Acute (8) PVD (peripheral vascular disease) Status: Acute (9) Osteomyelitis of right leg Status: Acute
[2016-11-29] MEDS: Meropenem 500 MG in Sodium Chloride 0.9% 100 ML IVPB SCH (00:40)
[2016-11-29] MEDS: Gentamicin 100mg/100ml NS 100 MG/100 ML BAG IVPB SCH (08:55)
[2016-11-29] MEDS: Insulin Lispro (humaLOG) 100 Units/ml Inj SC SCH ×3 (09:05→17:26)
[2016-11-29] MEDS: Multivitamin Vitamin B Complex (Nephro-Vite) Tab PO SCH ×2 (09:05→17:27)
[2016-11-29] MEDS: Epoetin Alfa 20000 UNIT/ML Inj IV SCH ×2 (09:06→14:46)
[2016-11-29] MEDS: Pantoprazole 40 mg EC Tab PO SCH ×2 (09:06→17:36)
[2016-11-29] MEDS: Lidocaine 5% Patch TD SCH (09:06)
[2016-11-29] MEDS: SODIUM CHLORIDE 0.9% IVPB SCH ×2 (10:00→20:20)
[2016-11-29] MEDS: TIGECYCLINE IVPB SCH ×2 (10:00→20:20)
--- NOTE | 2016-11-29 10:08 | CP.PCM.PN ---
Subjective - Date & Time of Evaluation Date of Evaluation: 11/29/16 Time of Evaluation: 10:06 - Subjective Subjective: Patient is awake consciousness scheduled to go to OR for debridement Patient scheduled for hemodialysis after the surgery. Vital sign noted to be okay Objective - Vital Signs/Intake and Output Vital Signs (last 24 hours): Temp Pulse Resp BP Pulse Ox 97.9 F 102 H 20 140/74 97 11/29/16 08:29 11/29/16 08:29 11/29/16 08:29 11/29/16 08:29 11/29/16 08:29 - Medications Medications: Current Medications Acetaminophen (Tylenol 325mg Tab) 650 mg PO Q4 PRN PRN Reason: Fever >100.4 F Last Admin: 11/21/16 00:44 Dose: 650 mg Acetaminophen (Tylenol 325mg Tab) 650 mg PO Q4 PRN PRN Reason: Pain, moderate (4-7) Last Admin: 09/16/16 22:34 Dose: 650 mg Albuterol Sulfate (Albuterol 0.083% Inhal Barbie (2.5 Mg/3 Ml) Ud) 2.5 mg INH RQ4 PRN PRN Reason: Shortness of Breath Albuterol/Ipratropium (Duoneb 3 Mg/0.5 Mg (3 Ml) Ud) 3 ml INH RQ4 PRN PRN Reason: Shortness of Breath Last Admin: 11/11/16 07:39 Dose: 3 ml Apixaban (Eliquis) 5 mg PO BID JASPER PRN Reason: Protocol Last Admin: 11/28/16 17:32 Dose: 5 mg Aspirin (Ecotrin) 81 mg PO DAILY [facility] Last Admin: 11/29/16 09:46 Dose: Not Given Atorvastatin Calcium (Lipitor) 40 mg PO DAILY [facility] Last Admin: 11/29/16 09:05 Dose: Not Given Benzonatate (Tessalon Perles) 200 mg PO TID PRN PRN Reason: Cough Last Admin: 11/21/16 09:06 Dose: 200 mg Calcium Carbonate (Oscal) 500 mg PO BIDWM [facility] Last Admin: 11/29/16 09:06 Dose: Not Given Cinacalcet (Sensipar) 30 mg PO DAILY [facility] Last Admin: 11/29/16 09:06 Dose: Not Given Diphenhydramine HCl (Benadryl) 25 mg PO Q6 PRN PRN Reason: Itching / Pruritus Last Admin: 11/12/16 08:34 Dose: 25 mg Docusate Sodium (Colace) 100 mg PO BID [facility] Last Admin: 11/29/16 09:45 Dose: Not Given Epoetin Tha (Procrit) 20,000 unit IV MWF [facility] Last Admin: 11/29/16 09:06 Dose: Not Given Ergocalciferol (Drisdol 50,000 Intl Units Cap) 1 cap PO WED [facility] Last Admin: 11/27/16 08:32 Dose: 1 cap Fluconazole (Diflucan) 100 mg PO DAILY [facility] Last Admin: 11/29/16 09:45 Dose: Not Given Gabapentin (Neurontin) 300 mg PO TID [facility] Last Admin: 11/29/16 09:05 Dose: Not Given Hydrocortisone (Anusol-Hc) 1 applic [place] BID PRN PRN Reason: Inflammation Hydromorphone HCl (Dilaudid) 1 mg IVP Q2H PRN PRN Reason: Pain, severe (8-10) Last Admin: 11/29/16 07:11 Dose: 1 mg Meropenem 500 mg/ Sodium (Chloride) 100 mls @ 100 mls/hr IVPB DAILY@0100 [facility] Last Admin: 11/29/16 00:40 Dose: 100 mls/hr Gentamicin Sulfate/Sodium Chloride (Gentamicin 100mg/100ml Ns) 100 mg in 100 mls @ 100 mls/hr IVPB MWF [facility] Last Admin: 11/29/16 08:55 Dose: 100 mls/hr Tigecycline 25 mg/ Sodium (Chloride) 100 mls @ 100 mls/hr IVPB Q12 [facility] Last Admin: 11/28/16 21:29 Dose: 100 mls/hr Sodium Chloride (Sodium Chloride 0.45%) 500 mls @ 10 mls/hr IV .Q24H [facility] Last Admin: 11/28/16 16:24 Dose: 10 mls/hr Daptomycin 650 mg/ Sodium (Chloride) 100 mls @ 100 mls/hr IVPB MWF@1800 [facility] Stop: 12/16/16 18:59 Last Admin: 11/27/16 22:59 Dose: 100 mls/hr Insulin Detemir (Levemir) 6 units SC [facility] Last Admin: 11/28/16 22:30 Dose: 6 units Insulin Human Lispro (Humalog) 4 units SC AC [facility] Last Admin: 11/29/16 09:05 Dose: Not Given Lidocaine (Lidoderm) 1 ea TD DAILY [facility] Last Admin: 11/29/16 09:06 Dose: Not Given Nystatin (Nystop Topical Powder) 1 applic TOP BID [facility] Last Admin: 11/29/16 09:06 Dose: 1 applic Ondansetron HCl (Zofran Inj) 4 mg IVP Q6 PRN PRN Reason: Nausea/Vomiting Last Admin: 09/19/16 10:26 Dose: 4 mg Pantoprazole Sodium (Protonix Ec Tab) 40 mg PO DAILY [facility] Last Admin: 11/29/16 09:06 Dose: Not Given Sennosides (Senokot Tab) 25.8 mg PO HS [facility] Last Admin: 11/28/16 22:31 Dose: 25.8 mg Sevelamer HCl (Renagel) 1,600 mg PO TID [facility] Last Admin: 11/29/16 09:06 Dose: Not Given Topiramate (Topamax) 50 mg PO BID [facility] Last Admin: 11/29/16 09:06 Dose: Not Given Vitamin B Complex/Vit C/Folic Acid (Nephro-Ajay) 1 tab PO DAILY [facility] Last Admin: 11/29/16 09:05 Dose: Not Given - Labs Labs: 11/27/16 14:30 11/27/16 14:30 PT 17.2 Seconds (9.8-13.1) H 11/19/16 06:00 INR 1.5 (0.9-1.2) H 11/19/16 06:00 APTT 55.8 Seconds (25.6-37.1) H 11/19/16 06:00 - Constitutional Appears: No Acute Distress - ENT Exam ENT Exam: Mucous Membranes Moist - Respiratory Exam Respiratory Exam: absent: Chest Wall Tenderness - Cardiovascular Exam Cardiovascular Exam: absent: JVD, Rubs - GI/Abdominal Exam GI & Abdominal Exam: Normal Bowel Sounds - Extremities Exam Extremities Exam: absent: Calf Tenderness - Back Exam Back Exam: absent: CVA tenderness (L), CVA tenderness (R) - Neurological Exam Neurological Exam: Alert Assessment and Plan (1) ESRD (end stage renal disease) Assessment & Plan: End stage renal disease going for dialysis after surgery today which is going for debridement on the right stump Lab reviewed to be acceptable. Dialysis order was given see the detailed Ultrafiltration probably should be between 2500 mL plus minus. Status: Chronic (2) Cellulitis of leg Status: Chronic
[2016-11-29] MEDS ORDERED: Lidocaine 1% Inj (20ml) ONE (10:10)
[2016-11-29] MEDS ORDERED: Bupivacaine 0.5% Inj(30mL) ONE (10:10)
[2016-11-29 10:14] LABS: BASO # 0.1 K/uL (0.0-0.2); BASO % 1.2 % (0.0-2.0); EOS # 0.6 K/uL (0.0-0.7); EOS % 5.3 % (0.0-4.0); HEMATOCRIT 32.7 % (34.0-47.0); LYMPH # 1.8 K/uL (1.0-4.3); LYMPH % 16.8 % (20.0-40.0); MEAN CELL VOLUME 99.6 fl (81.0-99.0); MEAN CORPUSCULAR HEMOGLOBIN 30.9 pg (27.0-31.0); MEAN PLATELET VOLUME 9.6 fl (7.2-11.7); MONO # 1.1 K/uL (0.0-0.8); NEUT # 7.2 K/uL (1.8-7.0); NEUT % 66.7 % (50.0-75.0); RED CELL DISTRIBUTION WIDTH 21.8 % (11.5-14.5); WHITE BLOOD COUNT 10.8 K/uL (4.8-10.8)
[2016-11-29 10:17] LABS: ALB/GLOB RATIO 0.8 (1.0-2.1); ALKALINE PHOSPHATASE 185 U/L (38-126); ALT/SGPT 35 U/L (9-52); AST/SGOT 62 U/L (14-36); BILIRUBIN,TOTAL 0.4 mg/dl (0.2-1.3); BLOOD UREA NITROGEN 70 mg/dl (7-17); CALCIUM 9.3 mg/dL (8.4-10.2); CARBON DIOXIDE 24 mmol/L (22-30); CHLORIDE 101 mmol/L (98-107); GFR AFRICAN-AMERICAN 8; GLUCOSE,RANDOM 121 mg/dL (65-105); POTASSIUM 5.1 MMOL/L (3.6-5.0); SODIUM 139 mmol/l (132-148); TOTAL PROTEIN 7.4 G/DL (6.3-8.2)
[2016-11-29] MEDS ORDERED: Ketamine 50 mg/ml Inj (10 ml) ONE (11:04)
[2016-11-29] MEDS ORDERED: Propofol 10 mg/ml Inj (20 ML) ONE ×2 (11:04→11:42)
[2016-11-29] MEDS ORDERED: Lactated Ringer's 1,000 ML IV ONE (11:09)
[2016-11-29] MEDS ORDERED: HYDROmorphone 0.5 mg/0.5 ml ISec IVP PRN (12:10)
--- NOTE | 2016-11-29 12:57 | PCM.SURG1 ---
<Sb [place]ves - Last Filed: 11/29/16 12:55> Surgeon's Initial Post Op Note - Surgeon's Notes Surgeon: Dr. Mccormack Flour Tester: Sb Grvoes PGY2 Type of Anesthesia: IV Sedation Pre-Operative Diagnosis: R BKA wound infection Operative Findings: R BKA necrotic tissues Post-Operative Diagnosis: Same Operation Performed: R BKA wash out , debridement with pulse lavage Specimen/Specimens Removed: necrotic tissues Estimated Blood Loss: EBL {In ML}: 5 Blood Products Given: N/A Drains Used: No Drains Post-Op Condition: Good Date of Surgery/Procedure: 11/29/16 Time of Surgery/Procedure: 13:02 <Raffy Mccormack - Last Filed: 11/29/16 13:43> Surgeon's Initial Post Op Note - Surgeon's Notes Pre-Operative Diagnosis: Right below-knee amputation infection Operative Findings: Beefy read granulation tissue throughout the wound. Scant amount of non-viable facia and fat removed Specimen/Specimens Removed: non-viable fat and connective tissue removed
--- NOTE | 2016-11-29 13:56 | PN ---
ENDOCRINOLOGY FOLLOWUP NOTE: DATE: 11/29/2016 LOCATION: Room 661. SUBJECTIVE: This is a 46-year-old female with recent uncontrolled type II insulin requiring diabetes, now being followed closely for metabolic management. Her glycemic levels are much improved postoperatively following a debridement of her right below-knee amputation stump with underlying osteomyelitis. LABORATORY DATA: Her latest chemistry showed a BUN of 70, sodium 139, potassium 5.1, chloride 101, CO2 24, glucose 121, and creatinine 0.8. PLAN: So at this time, we will continue the same basal and bolus insulin regimen as given with Levemir given as 6 units subQ at bedtime daily and Humalog given as 4 units subQ t.i.d. before meals as given. We will titrate incremental as indicated to optimize metabolic control. We will follow. Irene Ambrose MD
[2016-11-29] MEDS: Sodium Chloride 0.9% 1,000 ML IV SCH (14:47)
--- NOTE | 2016-11-29 18:00 | CP.PCM.PN ---
Subjective - Date & Time of Evaluation Date of Evaluation: 11/29/16 Time of Evaluation: 17:57 - Subjective Subjective: Notes by Drs. Guadarrama, Ting, and [place] appreciated. Patient underwent wash out and debridement of right BK wound today. Dr. Mccormack indicated that the wound is looking good with minimal non-viable tissue which he removed. She is feeling OK now and eating supper. Hemodialysis in progress. She continues on 4 iv antibiotics and po fluconazole. Labs reviewed = increase in transaminases noted and must be watched because of daptomycin toxicity. DM controlled Objective - Vital Signs/Intake and Output Vital Signs (last 24 hours): Temp Pulse Resp BP Pulse Ox 97.8 F 99 H 18 162/83 H 96 11/29/16 16:02 11/29/16 16:02 11/29/16 16:02 11/29/16 16:02 11/29/16 16:02 Intake and Output: 11/29/16 11/29/16 06:59 18:59 Intake Total 100 Balance 100 - Medications Medications: Current Medications Acetaminophen (Tylenol 325mg Tab) 650 mg PO Q4 PRN PRN Reason: Fever >100.4 F Last Admin: 11/21/16 00:44 Dose: 650 mg Acetaminophen (Tylenol 325mg Tab) 650 mg PO Q4 PRN PRN Reason: Pain, moderate (4-7) Last Admin: 09/16/16 22:34 Dose: 650 mg Albuterol Sulfate (Albuterol 0.083% Inhal Barbie (2.5 Mg/3 Ml) Ud) 2.5 mg INH RQ4 PRN PRN Reason: Shortness of Breath Albuterol/Ipratropium (Duoneb 3 Mg/0.5 Mg (3 Ml) Ud) 3 ml INH RQ4 PRN PRN Reason: Shortness of Breath Last Admin: 11/11/16 07:39 Dose: 3 ml Apixaban (Eliquis) 5 mg PO BID JASPER PRN Reason: Protocol Last Admin: 11/29/16 17:35 Dose: 5 mg Aspirin (Ecotrin) 81 mg PO DAILY [facility] Last Admin: 11/29/16 17:34 Dose: 81 mg Atorvastatin Calcium (Lipitor) 40 mg PO DAILY [facility] Last Admin: 11/29/16 17:34 Dose: 40 mg Benzonatate (Tessalon Perles) 200 mg PO TID PRN PRN Reason: Cough Last Admin: 11/21/16 09:06 Dose: 200 mg Calcium Carbonate (Oscal) 500 mg PO BIDWM [facility] Last Admin: 11/29/16 17:27 Dose: 500 mg Cinacalcet (Sensipar) 30 mg PO DAILY [facility] Last Admin: 11/29/16 17:27 Dose: 30 mg Diphenhydramine HCl (Benadryl) 25 mg PO Q6 PRN PRN Reason: Itching / Pruritus Last Admin: 11/12/16 08:34 Dose: 25 mg Docusate Sodium (Colace) 100 mg PO BID [facility] Last Admin: 11/29/16 17:36 Dose: Not Given Epoetin Tha (Procrit) 20,000 unit IV [facility] [place] Last Admin: 11/29/16 14:46 Dose: 20,000 unit Ergocalciferol (Drisdol 50,000 Intl Units Cap) 1 cap PO WED [facility] Last Admin: 11/27/16 08:32 Dose: 1 cap Fluconazole (Diflucan) 100 mg PO DAILY [facility] Last Admin: 11/29/16 17:35 Dose: 100 mg Gabapentin (Neurontin) 300 mg PO TID [facility] Last Admin: 11/29/16 17:35 Dose: 300 mg Hydrocortisone (Anusol-Hc) 1 applic [place] BID PRN PRN Reason: Inflammation Hydromorphone HCl (Dilaudid) 1 mg IVP Q2H PRN PRN Reason: Pain, severe (8-10) Last Admin: 11/29/16 15:38 Dose: 1 mg Meropenem 500 mg/ Sodium (Chloride) 100 mls @ 100 mls/hr IVPB DAILY@0100 [facility] Last Admin: 11/29/16 00:40 Dose: 100 mls/hr Gentamicin Sulfate/Sodium Chloride (Gentamicin 100mg/100ml Ns) 100 mg in 100 mls @ 100 mls/hr IVPB MWF [facility] Last Admin: 11/29/16 08:55 Dose: 100 mls/hr Tigecycline 25 mg/ Sodium (Chloride) 100 mls @ 100 mls/hr IVPB Q12 [facility] Last Admin: 11/29/16 10:00 Dose: Not Given Sodium Chloride (Sodium Chloride 0.45%) 500 mls @ 10 mls/hr IV .Q24H [facility] Last Admin: 11/29/16 15:42 Dose: 10 mls/hr Daptomycin 650 mg/ Sodium (Chloride) 100 mls @ 100 mls/hr IVPB MWF@1800 [facility] Stop: 12/16/16 18:59 Last Admin: 11/27/16 22:59 Dose: 100 mls/hr Sodium Chloride (Sodium Chloride 0.9%) 1,000 mls @ 25 mls/hr IV .Q24H [facility] Last Admin: 11/29/16 14:47 Dose: 25 mls/hr Insulin Detemir (Levemir) 6 units SC HS [facility] Last Admin: 11/28/16 22:30 Dose: 6 units Insulin Human Lispro (Humalog) 4 units SC AC [facility] Last Admin: 11/29/16 17:26 Dose: 4 units Lidocaine (Lidoderm) 1 ea TD DAILY [facility] Last Admin: 11/29/16 09:06 Dose: Not Given Nystatin (Nystop Topical Powder) 1 applic TOP BID [facility] Last Admin: 11/29/16 17:35 Dose: 1 applic Ondansetron HCl (Zofran Inj) 4 mg IVP Q6 PRN PRN Reason: Nausea/Vomiting Last Admin: 09/19/16 10:26 Dose: 4 mg Pantoprazole Sodium (Protonix Ec Tab) 40 mg PO DAILY [facility] Last Admin: 11/29/16 17:36 Dose: 40 mg Sennosides (Senokot Tab) 25.8 mg PO [facility] Last Admin: 11/28/16 22:31 Dose: 25.8 mg Sevelamer HCl (Renagel) 1,600 mg PO TID [facility] Last Admin: 11/29/16 17:27 Dose: 1,600 mg Topiramate (Topamax) 50 mg PO BID [facility] Last Admin: 11/29/16 17:27 Dose: 50 mg Vitamin B Complex/Vit C/Folic Acid (Nephro-Ajay) 1 tab PO DAILY [facility] Last Admin: 11/29/16 17:27 Dose: 1 tab - Labs Labs: 11/29/16 10:00 11/29/16 09:55 PT 17.2 Seconds (9.8-13.1) H 11/19/16 06:00 INR 1.5 (0.9-1.2) H 11/19/16 06:00 APTT 55.8 Seconds (25.6-37.1) H 11/19/16 06:00 AST = 62 (approx 2x normal) ALT = 35 (wnl) - Constitutional Appears: No Acute Distress - Head Exam Head Exam: NORMAL INSPECTION - Eye Exam Eye Exam: Normal appearance - ENT Exam ENT Exam: Mucous Membranes Moist - Neck Exam Neck Exam: Normal Inspection Additional comments: R subclavian Permacath intact. - Respiratory Exam Respiratory Exam: Clear to Ausculation Bilateral, NORMAL BREATHING PATTERN - Cardiovascular Exam Cardiovascular Exam: REGULAR RHYTHM, +S1, +S2 - GI/Abdominal Exam GI & Abdominal Exam: Soft - Extremities Exam Additional comments: R patella with dry eschar. BK amputation site with dry and intact dressing. L femoral vein PICC line intact. - Back Exam Back Exam: NORMAL INSPECTION - Neurological Exam Neurological Exam: Alert, Awake - Psychiatric Exam Psychiatric exam: Normal Affect, Normal Mood - Skin Skin Exam: Dry, Normal Color, Warm Assessment and Plan (1) Status post below knee amputation of right lower extremity Assessment & Plan: Making progress. Continue present care. Status: Acute (2) ESRD (end stage renal disease) on dialysis Status: Chronic (3) DM type 2 (diabetes mellitus, type 2) Status: Chronic (4) Coagulopathy Status: Chronic (5) Peripheral arterial occlusive disease Status: Chronic
[2016-11-29] MEDS: Insulin Detemir 100 Units/ml Inj SC SCH (21:30)
--- NOTE | 2016-11-29 23:16 | CP.PCM.PN ---
Subjective - Date & Time of Evaluation Date of Evaluation: 11/29/16 Time of Evaluation: 21:05 - Subjective Subjective: No seizures, she is on Po Topamax 50 mg BID. She is receiving Vitamin D and Oscal due to low level of Vitamin D. She is recovering clinically according to her lab work and her clinical condition and the report of Surgery which mentioned that the wound is clean. Her LFT are slightly elevated, but not significantly enough to consider a liver toxicity. She is receiving her Hemodialysis as her routine on ,,. Objective - Vital Signs/Intake and Output Vital Signs (last 24 hours): Temp Pulse Resp BP Pulse Ox 97.8 F 99 H 18 162/83 H 96 11/29/16 16:02 11/29/16 16:02 11/29/16 16:02 11/29/16 16:02 11/29/16 16:02 Intake and Output: 11/29/16 11/30/16 18:59 06:59 Intake Total 100 Balance 100 - Medications Medications: Current Medications Acetaminophen (Tylenol 325mg Tab) 650 mg PO Q4 PRN PRN Reason: Fever >100.4 F Last Admin: 11/21/16 00:44 Dose: 650 mg Acetaminophen (Tylenol 325mg Tab) 650 mg PO Q4 PRN PRN Reason: Pain, moderate (4-7) Last Admin: 09/16/16 22:34 Dose: 650 mg Albuterol Sulfate (Albuterol 0.083% Inhal Barbie (2.5 Mg/3 Ml) Ud) 2.5 mg INH RQ4 PRN PRN Reason: Shortness of Breath Albuterol/Ipratropium (Duoneb 3 Mg/0.5 Mg (3 Ml) Ud) 3 ml INH RQ4 PRN PRN Reason: Shortness of Breath Last Admin: 11/11/16 07:39 Dose: 3 ml Apixaban (Eliquis) 5 mg PO BID [facility] PRN Reason: Protocol Last Admin: 11/29/16 17:35 Dose: 5 mg Aspirin (Ecotrin) 81 mg PO DAILY [facility] Last Admin: 11/29/16 17:34 Dose: 81 mg Atorvastatin Calcium (Lipitor) 40 mg PO DAILY [facility] Last Admin: 11/29/16 17:34 Dose: 40 mg Benzonatate (Tessalon Perles) 200 mg PO TID PRN PRN Reason: Cough Last Admin: 11/21/16 09:06 Dose: 200 mg Calcium Carbonate (Oscal) 500 mg PO BIDWM [facility] Last Admin: 11/29/16 17:27 Dose: 500 mg Cinacalcet (Sensipar) 30 mg PO DAILY [facility] Last Admin: 11/29/16 17:27 Dose: 30 mg Diphenhydramine HCl (Benadryl) 25 mg PO Q6 PRN PRN Reason: Itching / Pruritus Last Admin: 11/12/16 08:34 Dose: 25 mg Docusate Sodium (Colace) 100 mg PO BID [facility] Last Admin: 11/29/16 17:36 Dose: Not Given Epoetin Tha (Procrit) 20,000 unit IV [facility] Last Admin: 11/29/16 14:46 Dose: 20,000 unit Ergocalciferol (Drisdol 50,000 Intl Units Cap) 1 cap PO WED [facility] Last Admin: 11/27/16 08:32 Dose: 1 cap Fluconazole (Diflucan) 100 mg PO DAILY [facility] Last Admin: 11/29/16 17:35 Dose: 100 mg Gabapentin (Neurontin) 300 mg PO TID [facility] Last Admin: 11/29/16 17:35 Dose: 300 mg Hydrocortisone (Anusol-Hc) 1 applic [place] BID PRN PRN Reason: Inflammation Hydromorphone HCl (Dilaudid) 1 mg IVP Q2H PRN PRN Reason: Pain, severe (8-10) Last Admin: 11/29/16 20:14 Dose: 1 mg Meropenem 500 mg/ Sodium (Chloride) 100 mls @ 100 mls/hr IVPB DAILY@0100 [facility] Last Admin: 11/29/16 00:40 Dose: 100 mls/hr Gentamicin Sulfate/Sodium Chloride (Gentamicin 100mg/100ml Ns) 100 mg in 100 mls @ 100 mls/hr IVPB MWF [facility] Last Admin: 11/29/16 08:55 Dose: 100 mls/hr Tigecycline 25 mg/ Sodium (Chloride) 100 mls @ 100 mls/hr IVPB Q12 [facility] Last Admin: 11/29/16 20:20 Dose: 100 mls/hr Sodium Chloride (Sodium Chloride 0.45%) 500 mls @ 10 mls/hr IV .Q24H [facility] Last Admin: 11/29/16 15:42 Dose: 10 mls/hr Daptomycin 650 mg/ Sodium (Chloride) 100 mls @ 100 mls/hr IVPB MWF@1800 [facility] Stop: 12/16/16 18:59 Last Admin: 11/29/16 19:18 Dose: 100 mls/hr Sodium Chloride (Sodium Chloride 0.9%) 1,000 mls @ 25 mls/hr IV .Q24H [facility] Last Admin: 11/29/16 14:47 Dose: 25 mls/hr Insulin Detemir (Levemir) 6 units SC HS [facility] Last Admin: 11/29/16 21:30 Dose: 6 units Insulin Human Lispro (Humalog) 4 units SC AC [facility] Last Admin: 11/29/16 17:26 Dose: 4 units Lidocaine (Lidoderm) 1 ea TD DAILY [facility] Last Admin: 11/29/16 09:06 Dose: Not Given Nystatin (Nystop Topical Powder) 1 applic TOP BID [facility] Last Admin: 11/29/16 17:35 Dose: 1 applic Ondansetron HCl (Zofran Inj) 4 mg IVP Q6 PRN PRN Reason: Nausea/Vomiting Last Admin: 09/19/16 10:26 Dose: 4 mg Pantoprazole Sodium (Protonix Ec Tab) 40 mg PO DAILY [facility] Last Admin: 11/29/16 17:36 Dose: 40 mg Sennosides (Senokot Tab) 25.8 mg PO HS [facility] Last Admin: 11/29/16 21:30 Dose: 25.8 mg Sevelamer HCl (Renagel) 1,600 mg PO TID [facility] Last Admin: 11/29/16 17:27 Dose: 1,600 mg Topiramate (Topamax) 50 mg PO BID [facility] Last Admin: 11/29/16 17:27 Dose: 50 mg Vitamin B Complex/Vit C/Folic Acid (Nephro-Ajay) 1 tab PO DAILY [facility] Last Admin: 11/29/16 17:27 Dose: 1 tab - Labs Labs: 11/29/16 10:00 11/29/16 09:55 PT 17.2 Seconds (9.8-13.1) H 11/19/16 06:00 INR 1.5 (0.9-1.2) H 11/19/16 06:00 APTT 55.8 Seconds (25.6-37.1) H 11/19/16 06:00 Assessment and Plan (1) Diabetes Status: Chronic (2) ESRD (end stage renal disease) Status: Chronic (3) Cellulitis of leg Status: Chronic (4) Hyperlipidemia Status: Chronic (5) Back pain Status: Acute (6) Bacteremia due to Gram-negative bacteria Status: Acute (7) Diabetes mellitus type 2 with peripheral artery disease Status: Chronic (8) PVD (peripheral vascular disease) Status: Chronic (9) Osteomyelitis of right leg Status: Acute
[2016-11-30] MEDS: Meropenem 500 MG in Sodium Chloride 0.9% 100 ML IVPB SCH (00:34)
--- NOTE | 2016-11-30 01:31 | OP ---
PROCEDURE DATE: 11/29/2016 PREOPERATIVE DIAGNOSIS: Infected right below-knee amputation wound. POSTOPERATIVE DIAGNOSIS: Infected right below-knee amputation wound. PROCEDURE: Right below-knee amputation washout with debridement. SURGEON: Raffy Mccormack MD MINUTE CLERK: Sb Groves DO TYPE OF ANESTHESIA: Deep sedation. INDICATION FOR SURGERY: Patient is a 46-year-old with multiple severe comorbidities. She underwent right below-knee amputation, essentially 2 months ago during this hospitalization. Because of her comorbid conditions, she developed necrosis and infection of right below-knee amputation stump. She underwent several debridement and revision procedures of the right-below knee amputation wound, which has been left open for drainage. Patient was recommended to have additional debridement of nonviable tissue as well as washout to reduce bioburden. Risks and benefits of the procedure were thoroughly explained to the patient. She signed informed consent and chose to proceed with operation. DESCRIPTION OF THE PROCEDURE: Patient was brought to operating room and placed on the table. Right lower extremity was marked with my initial prior to coming to the OR as the correct side of the operation. Deep sedation was applied by anesthesia and right lower extremity was prepped and draped in sterile fashion. Right below-knee amputation wound was debrided sharply with scant amount of nonviable fascia and fat tissue removed. There was no gross pus or purulence. Most of the wound was granulating very nicely and oozing quite well. After debridement was completed, pulse lavage irrigation was used for copiously washing out the wound with 4 liters of antibiotic-containing solution. After washout, additional debridement was done sharply with removal of some more nonviable fat and fascia. At that point, we were ready to terminate the procedure. The wound was packed wet-to-dry with normal saline and sterile dressing was applied. Julian bandage was applied for hemostasis. Patient was transferred to postanesthesia care unit in a satisfactory condition. Raffy Mccormack MD [place]
[2016-11-30] MEDS: Insulin Lispro (humaLOG) 100 Units/ml Inj SC SCH ×3 (08:09→16:35)
[2016-11-30] MEDS: Multivitamin Vitamin B Complex (Nephro-Vite) Tab PO SCH (09:05)
[2016-11-30] MEDS: Lidocaine 5% Patch TD SCH (09:06)
[2016-11-30] MEDS: Pantoprazole 40 mg EC Tab PO SCH (09:06)
[2016-11-30] MEDS: TIGECYCLINE IVPB SCH ×2 (09:07→21:57)
[2016-11-30] MEDS: SODIUM CHLORIDE 0.9% IVPB SCH ×2 (09:07→21:57)
--- NOTE | 2016-11-30 09:57 | CP.PCM.PN ---
<Sb Groves - Last Filed: 11/30/16 09:58> Subjective - Date & Time of Evaluation Date of Evaluation: 11/30/16 Time of Evaluation: 09:55 - Subjective Subjective: Vascular surgery for Dr. Mccormack Pt s&e. Pt underwent R BKA washout and debridement yesterday. TOlerated it well. Pain controlled. Resting comfortably Objective - Vital Signs/Intake and Output Vital Signs (last 24 hours): Temp Pulse Resp BP Pulse Ox 97.3 F L 110 H 17 108/76 98 11/30/16 08:49 11/30/16 08:49 11/30/16 08:49 11/30/16 08:49 11/30/16 08:49 - Medications Medications: Current Medications Acetaminophen (Tylenol 325mg Tab) 650 mg PO Q4 PRN PRN Reason: Fever >100.4 F Last Admin: 11/21/16 00:44 Dose: 650 mg Acetaminophen (Tylenol 325mg Tab) 650 mg PO Q4 PRN PRN Reason: Pain, moderate (4-7) Last Admin: 09/16/16 22:34 Dose: 650 mg Albuterol Sulfate (Albuterol 0.083% Inhal Barbie (2.5 Mg/3 Ml) Ud) 2.5 mg INH RQ4 PRN PRN Reason: Shortness of Breath Albuterol/Ipratropium (Duoneb 3 Mg/0.5 Mg (3 Ml) Ud) 3 ml INH RQ4 PRN PRN Reason: Shortness of Breath Last Admin: 11/11/16 07:39 Dose: 3 ml Apixaban (Eliquis) 5 mg PO BID [facility] PRN Reason: Protocol Last Admin: 11/30/16 09:05 Dose: 5 mg Aspirin (Ecotrin) 81 mg PO DAILY [facility] Last Admin: 11/30/16 09:05 Dose: 81 mg Atorvastatin Calcium (Lipitor) 40 mg PO DAILY [facility] Last Admin: 11/30/16 09:05 Dose: 40 mg Benzonatate (Tessalon Perles) 200 mg PO TID PRN PRN Reason: Cough Last Admin: 11/21/16 09:06 Dose: 200 mg Calcium Carbonate (Oscal) 500 mg PO BIDWM [facility] Last Admin: 11/30/16 09:06 Dose: 500 mg Cinacalcet (Sensipar) 30 mg PO DAILY [facility] Last Admin: 11/30/16 09:08 Dose: 30 mg Diphenhydramine HCl (Benadryl) 25 mg PO Q6 PRN PRN Reason: Itching / Pruritus Last Admin: 11/12/16 08:34 Dose: 25 mg Docusate Sodium (Colace) 100 mg PO BID [facility] Last Admin: 11/30/16 09:08 Dose: 100 mg Epoetin Tha (Procrit) 20,000 unit IV MWF [facility] Last Admin: 11/29/16 14:46 Dose: 20,000 unit Ergocalciferol (Drisdol 50,000 Intl Units Cap) 1 cap PO WED [facility] Last Admin: 11/27/16 08:32 Dose: 1 cap Fluconazole (Diflucan) 100 mg PO DAILY [facility] Last Admin: 11/30/16 09:08 Dose: 100 mg Gabapentin (Neurontin) 300 mg PO TID [facility] Last Admin: 11/30/16 09:05 Dose: 300 mg Hydrocortisone (Anusol-Hc) 1 applic [place] BID PRN PRN Reason: Inflammation Hydromorphone HCl (Dilaudid) 1 mg IVP Q2H PRN PRN Reason: Pain, severe (8-10) Last Admin: 11/30/16 08:02 Dose: 1 mg Meropenem 500 mg/ Sodium (Chloride) 100 mls @ 100 mls/hr IVPB DAILY@0100 [facility] Last Admin: 11/30/16 00:34 Dose: 100 mls/hr Gentamicin Sulfate/Sodium Chloride (Gentamicin 100mg/100ml Ns) 100 mg in 100 mls @ 100 mls/hr IVPB MWF [facility] Last Admin: 11/29/16 08:55 Dose: 100 mls/hr Tigecycline 25 mg/ Sodium (Chloride) 100 mls @ 100 mls/hr IVPB Q12 [facility] Last Admin: 11/30/16 09:07 Dose: 100 mls/hr Sodium Chloride (Sodium Chloride 0.45%) 500 mls @ 10 mls/hr IV .Q24H [facility] Last Admin: 11/29/16 15:42 Dose: 10 mls/hr Daptomycin 650 mg/ Sodium (Chloride) 100 mls @ 100 mls/hr IVPB MWF@1800 [facility] Stop: 12/16/16 18:59 Last Admin: 11/29/16 19:18 Dose: 100 mls/hr Sodium Chloride (Sodium Chloride 0.9%) 1,000 mls @ 25 mls/hr IV .Q24H [facility] Last Admin: 11/29/16 14:47 Dose: 25 mls/hr Insulin Detemir (Levemir) 6 units SC HS [facility] Last Admin: 11/29/16 21:30 Dose: 6 units Insulin Human Lispro (Humalog) 4 units SC AC [facility] Last Admin: 11/30/16 08:09 Dose: 4 units Lidocaine (Lidoderm) 1 ea TD DAILY [facility] Last Admin: 11/30/16 09:06 Dose: 1 ea Nystatin (Nystop Topical Powder) 1 applic TOP BID [facility] Last Admin: 11/30/16 09:10 Dose: 1 applic Ondansetron HCl (Zofran Inj) 4 mg IVP Q6 PRN PRN Reason: Nausea/Vomiting Last Admin: 09/19/16 10:26 Dose: 4 mg Pantoprazole Sodium (Protonix Ec Tab) 40 mg PO DAILY [facility] Last Admin: 11/30/16 09:06 Dose: 40 mg Sennosides (Senokot Tab) 25.8 mg PO [facility] Last Admin: 11/29/16 21:30 Dose: 25.8 mg Sevelamer HCl (Renagel) 1,600 mg PO TID [facility] Last Admin: 11/30/16 09:04 Dose: 1,600 mg Topiramate (Topamax) 50 mg PO BID [facility] Last Admin: 11/30/16 09:08 Dose: 50 mg Vitamin B Complex/Vit C/Folic Acid (Nephro-Ajay) 1 tab PO DAILY [facility] Last Admin: 11/30/16 09:05 Dose: 1 tab - Labs Labs: 11/29/16 10:00 11/29/16 09:55 PT 17.2 Seconds (9.8-13.1) H 11/19/16 06:00 INR 1.5 (0.9-1.2) H 11/19/16 06:00 APTT 55.8 Seconds (25.6-37.1) H 11/19/16 06:00 - Constitutional Appears: No Acute Distress - Head Exam Head Exam: ATRAUMATIC, NORMAL INSPECTION, NORMOCEPHALIC - Eye Exam Eye Exam: EOMI, Normal appearance, PERRL Pupil Exam: NORMAL ACCOMODATION, PERRL - ENT Exam ENT Exam: Mucous Membranes Moist, Normal Exam - Neck Exam Neck Exam: Full ROM, Normal Inspection. absent: Lymphadenopathy - Respiratory Exam Respiratory Exam: Clear to Ausculation Bilateral, NORMAL BREATHING PATTERN - Cardiovascular Exam Cardiovascular Exam: REGULAR RHYTHM, +S1, +S2. absent: Murmur - GI/Abdominal Exam GI & Abdominal Exam: Soft, Normal Bowel Sounds. absent: Distended, Firm, Tenderness - Exam Exam: NORMAL INSPECTION - Extremities Exam Extremities Exam: Tenderness Additional comments: b/l BKA. R stump dressing C/D/I. TTP - Neurological Exam Neurological Exam: Alert, Awake, CN II-XII Intact, Oriented x3 - Psychiatric Exam Psychiatric exam: Normal Affect, Normal Mood - Skin Skin Exam: Dry, Normal Color, Warm Assessment and Plan - Assessment and Plan (Free Text) Assessment: 46F s/p R BKA (10/01) w/revision and wash out (11/19, 11/29) -Will wet/dry dressing change PRN -c/w local wound care -c/w abx -will continue to follow closely -Possible repeat washout and wound vac next week. -will d/w attending <Raffy Mccormack - Last Filed: 11/30/16 13:54> Objective - Vital Signs/Intake and Output Vital Signs (last 24 hours): Temp Pulse Resp BP Pulse Ox 97.3 F L 110 H 17 108/76 98 11/30/16 08:49 11/30/16 08:49 11/30/16 08:49 11/30/16 08:49 11/30/16 08:49 - Medications Medications: Current Medications Acetaminophen (Tylenol 325mg Tab) 650 mg PO Q4 PRN PRN Reason: Fever >100.4 F Last Admin: 11/21/16 00:44 Dose: 650 mg Acetaminophen (Tylenol 325mg Tab) 650 mg PO Q4 PRN PRN Reason: Pain, moderate (4-7) Last Admin: 09/16/16 22:34 Dose: 650 mg Albuterol Sulfate (Albuterol 0.083% Inhal Barbie (2.5 Mg/3 Ml) Ud) 2.5 mg INH RQ4 PRN PRN Reason: Shortness of Breath Albuterol/Ipratropium (Duoneb 3 Mg/0.5 Mg (3 Ml) Ud) 3 ml INH RQ4 PRN PRN Reason: Shortness of Breath Last Admin: 11/11/16 07:39 Dose: 3 ml Apixaban (Eliquis) 5 mg PO BID [facility] PRN Reason: Protocol Last Admin: 11/30/16 09:05 Dose: 5 mg Aspirin (Ecotrin) 81 mg PO DAILY [facility] Last Admin: 11/30/16 09:05 Dose: 81 mg Atorvastatin Calcium (Lipitor) 40 mg PO DAILY [facility] Last Admin: 11/30/16 09:05 Dose: 40 mg Benzonatate (Tessalon Perles) 200 mg PO TID PRN PRN Reason: Cough Last Admin: 11/21/16 09:06 Dose: 200 mg Calcium Carbonate (Oscal) 500 mg PO BIDWM [facility] Last Admin: 11/30/16 09:06 Dose: 500 mg Cinacalcet (Sensipar) 30 mg PO DAILY [facility] Last Admin: 11/30/16 09:08 Dose: 30 mg Diphenhydramine HCl (Benadryl) 25 mg PO Q6 PRN PRN Reason: Itching / Pruritus Last Admin: 11/12/16 08:34 Dose: 25 mg Docusate Sodium (Colace) 100 mg PO BID [facility] Last Admin: 11/30/16 09:08 Dose: 100 mg Epoetin Tha (Procrit) 20,000 unit IV MWF [facility] Last Admin: 11/29/16 14:46 Dose: 20,000 unit Ergocalciferol (Drisdol 50,000 Intl Units Cap) 1 cap PO WED [facility] Last Admin: 11/27/16 08:32 Dose: 1 cap Fluconazole (Diflucan) 100 mg PO DAILY [facility] Last Admin: 11/30/16 09:08 Dose: 100 mg Gabapentin (Neurontin) 300 mg PO TID [facility] Last Admin: 11/30/16 09:05 Dose: 300 mg Hydrocortisone (Anusol-Hc) 1 applic [place] BID PRN PRN Reason: Inflammation Hydromorphone HCl (Dilaudid) 1 mg IVP Q2H PRN PRN Reason: Pain, severe (8-10) Last Admin: 11/30/16 12:06 Dose: 1 mg Meropenem 500 mg/ Sodium (Chloride) 100 mls @ 100 mls/hr IVPB DAILY@0100 [facility] Last Admin: 11/30/16 00:34 Dose: 100 mls/hr Gentamicin Sulfate/Sodium Chloride (Gentamicin 100mg/100ml Ns) 100 mg in 100 mls @ 100 mls/hr IVPB MWF [facility] Last Admin: 11/29/16 08:55 Dose: 100 mls/hr Tigecycline 25 mg/ Sodium (Chloride) 100 mls @ 100 mls/hr IVPB Q12 [facility] Last Admin: 11/30/16 09:07 Dose: 100 mls/hr Sodium Chloride (Sodium Chloride 0.45%) 500 mls @ 10 mls/hr IV .Q24H [facility] Last Admin: 11/29/16 15:42 Dose: 10 mls/hr Daptomycin 650 mg/ Sodium (Chloride) 100 mls @ 100 mls/hr IVPB MWF@1800 [facility] Stop: 12/16/16 18:59 Last Admin: 11/29/16 19:18 Dose: 100 mls/hr Sodium Chloride (Sodium Chloride 0.9%) 1,000 mls @ 25 mls/hr IV .Q24H [facility] Last Admin: 11/29/16 14:47 Dose: 25 mls/hr Insulin Detemir (Levemir) 6 units SC HS [facility] Last Admin: 11/29/16 21:30 Dose: 6 units Insulin Human Lispro (Humalog) 4 units SC AC [facility] Last Admin: 11/30/16 08:09 Dose: 4 units Lidocaine (Lidoderm) 1 ea TD DAILY [facility] Last Admin: 11/30/16 09:06 Dose: 1 ea Nystatin (Nystop Topical Powder) 1 applic TOP BID [facility] Last Admin: 11/30/16 09:10 Dose: 1 applic Ondansetron HCl (Zofran Inj) 4 mg IVP Q6 PRN PRN Reason: Nausea/Vomiting Last Admin: 09/19/16 10:26 Dose: 4 mg Pantoprazole Sodium (Protonix Ec Tab) 40 mg PO DAILY [facility] Last Admin: 11/30/16 09:06 Dose: 40 mg Sennosides (Senokot Tab) 25.8 mg PO HS [facility] Last Admin: 11/29/16 21:30 Dose: 25.8 mg Sevelamer HCl (Renagel) 1,600 mg PO TID [facility] Last Admin: 11/30/16 09:04 Dose: 1,600 mg Topiramate (Topamax) 50 mg PO BID [facility] Last Admin: 11/30/16 09:08 Dose: 50 mg Vitamin B Complex/Vit C/Folic Acid (Nephro-Ajay) 1 tab PO DAILY [facility] Last Admin: 11/30/16 09:05 Dose: 1 tab - Labs Labs: 11/29/16 10:00 11/29/16 09:55 PT 17.2 Seconds (9.8-13.1) H 11/19/16 06:00 INR 1.5 (0.9-1.2) H 11/19/16 06:00 APTT 55.8 Seconds (25.6-37.1) H 11/19/16 06:00 Assessment and Plan - Assessment and Plan (Free Text) Plan: Patient has remained clinically stable. Pain is mild-moderate and responds to current regiment. Right BKA dressing was changed - wound is granulating well with no pus, krystal purulence or significant amount of tissue necrosis. Continue wet-to-dry dressing changes and current care.
--- NOTE | 2016-11-30 13:37 | CP.PCM.PN ---
Subjective - Date & Time of Evaluation Date of Evaluation: 11/30/16 Time of Evaluation: 01:00 - Subjective Subjective: Feels better Objective - Vital Signs/Intake and Output Vital Signs (last 24 hours): Temp Pulse Resp BP Pulse Ox 97.3 F L 110 H 17 108/76 98 11/30/16 08:49 11/30/16 08:49 11/30/16 08:49 11/30/16 08:49 11/30/16 08:49 - Medications Medications: Current Medications Acetaminophen (Tylenol 325mg Tab) 650 mg PO Q4 PRN PRN Reason: Fever >100.4 F Last Admin: 11/21/16 00:44 Dose: 650 mg Acetaminophen (Tylenol 325mg Tab) 650 mg PO Q4 PRN PRN Reason: Pain, moderate (4-7) Last Admin: 09/16/16 22:34 Dose: 650 mg Albuterol Sulfate (Albuterol 0.083% Inhal Barbie (2.5 Mg/3 Ml) Ud) 2.5 mg INH RQ4 PRN PRN Reason: Shortness of Breath Albuterol/Ipratropium (Duoneb 3 Mg/0.5 Mg (3 Ml) Ud) 3 ml INH RQ4 PRN PRN Reason: Shortness of Breath Last Admin: 11/11/16 07:39 Dose: 3 ml Apixaban (Eliquis) 5 mg PO BID [facility] PRN Reason: Protocol Last Admin: 11/30/16 09:05 Dose: 5 mg Aspirin (Ecotrin) 81 mg PO DAILY [facility] Last Admin: 11/30/16 09:05 Dose: 81 mg Atorvastatin Calcium (Lipitor) 40 mg PO DAILY [facility] Last Admin: 11/30/16 09:05 Dose: 40 mg Benzonatate (Tessalon Perles) 200 mg PO TID PRN PRN Reason: Cough Last Admin: 11/21/16 09:06 Dose: 200 mg Calcium Carbonate (Oscal) 500 mg PO BIDWM [facility] Last Admin: 11/30/16 09:06 Dose: 500 mg Cinacalcet (Sensipar) 30 mg PO DAILY [facility] Last Admin: 11/30/16 09:08 Dose: 30 mg Diphenhydramine HCl (Benadryl) 25 mg PO Q6 PRN PRN Reason: Itching / Pruritus Last Admin: 11/12/16 08:34 Dose: 25 mg Docusate Sodium (Colace) 100 mg PO BID [facility] Last Admin: 11/30/16 09:08 Dose: 100 mg Epoetin Tha (Procrit) 20,000 unit IV MWF [facility] Last Admin: 11/29/16 14:46 Dose: 20,000 unit Ergocalciferol (Drisdol 50,000 Intl Units Cap) 1 cap PO WED [facility] Last Admin: 11/27/16 08:32 Dose: 1 cap Fluconazole (Diflucan) 100 mg PO DAILY [facility] Last Admin: 11/30/16 09:08 Dose: 100 mg Gabapentin (Neurontin) 300 mg PO TID [facility] Last Admin: 11/30/16 09:05 Dose: 300 mg Hydrocortisone (Anusol-Hc) 1 applic [place] BID PRN PRN Reason: Inflammation Hydromorphone HCl (Dilaudid) 1 mg IVP Q2H PRN PRN Reason: Pain, severe (8-10) Last Admin: 11/30/16 12:06 Dose: 1 mg Meropenem 500 mg/ Sodium (Chloride) 100 mls @ 100 mls/hr IVPB DAILY@0100 [facility] Last Admin: 11/30/16 00:34 Dose: 100 mls/hr Gentamicin Sulfate/Sodium Chloride (Gentamicin 100mg/100ml Ns) 100 mg in 100 mls @ 100 mls/hr IVPB MWF [facility] Last Admin: 11/29/16 08:55 Dose: 100 mls/hr Tigecycline 25 mg/ Sodium (Chloride) 100 mls @ 100 mls/hr IVPB Q12 [facility] Last Admin: 11/30/16 09:07 Dose: 100 mls/hr Sodium Chloride (Sodium Chloride 0.45%) 500 mls @ 10 mls/hr IV .Q24H [facility] Last Admin: 11/29/16 15:42 Dose: 10 mls/hr Daptomycin 650 mg/ Sodium (Chloride) 100 mls @ 100 mls/hr IVPB MWF@1800 [facility] Stop: 12/16/16 18:59 Last Admin: 11/29/16 19:18 Dose: 100 mls/hr Sodium Chloride (Sodium Chloride 0.9%) 1,000 mls @ 25 mls/hr IV .Q24H [facility] Last Admin: 11/29/16 14:47 Dose: 25 mls/hr Insulin Detemir (Levemir) 6 units SC HS [facility] Last Admin: 11/29/16 21:30 Dose: 6 units Insulin Human Lispro (Humalog) 4 units SC AC [facility] Last Admin: 11/30/16 08:09 Dose: 4 units Lidocaine (Lidoderm) 1 ea TD DAILY [facility] Last Admin: 11/30/16 09:06 Dose: 1 ea Nystatin (Nystop Topical Powder) 1 applic TOP BID [facility] Last Admin: 11/30/16 09:10 Dose: 1 applic Ondansetron HCl (Zofran Inj) 4 mg IVP Q6 PRN PRN Reason: Nausea/Vomiting Last Admin: 09/19/16 10:26 Dose: 4 mg Pantoprazole Sodium (Protonix Ec Tab) 40 mg PO DAILY [facility] Last Admin: 11/30/16 09:06 Dose: 40 mg Sennosides (Senokot Tab) 25.8 mg PO HS [facility] Last Admin: 11/29/16 21:30 Dose: 25.8 mg Sevelamer HCl (Renagel) 1,600 mg PO TID [facility] Last Admin: 11/30/16 09:04 Dose: 1,600 mg Topiramate (Topamax) 50 mg PO BID [facility] Last Admin: 11/30/16 09:08 Dose: 50 mg Vitamin B Complex/Vit C/Folic Acid (Nephro-Ajay) 1 tab PO DAILY [facility] Last Admin: 11/30/16 09:05 Dose: 1 tab - Labs Labs: 11/29/16 10:00 11/29/16 09:55 PT 17.2 Seconds (9.8-13.1) H 11/19/16 06:00 INR 1.5 (0.9-1.2) H 11/19/16 06:00 APTT 55.8 Seconds (25.6-37.1) H 11/19/16 06:00 - Respiratory Exam Additional comments: Lungs clear - Cardiovascular Exam Cardiovascular Exam: Tachycardia, REGULAR RHYTHM - Extremities Exam Additional comments: B/L BKA. Rt stump dressed Assessment and Plan - Assessment and Plan (Free Text) Assessment: ESRD S/P RT BKA, OM Plan: Dialysis was tolerated well yesterday Continue HD per schedule
--- NOTE | 2016-11-30 13:58 | PN ---
ENDOCRINOLOGY FOLLOWUP NOTE DATE: 11/30/2016 ROOM: 661. SUBJECTIVE: This is a 46-year-old female with recent uncontrolled type 2 insulin-requiring diabetes now being followed closely for metabolic management. Her glycemic levels are fluctuating, but much improved at this time. LABORATORY DATA: The latest glucose levels have ranged from 102 to 103 mg/dL. Her latest chemistry showed a BUN of 70, sodium 139, potassium 5.1, chloride 101, CO2 of 24, glucose 121, and creatinine 6.8. So, at this time, we will continue the same basal and bolus insulin regimen as ordered with Levemir given as 6 units subcutaneously at bedtime daily. We will continue the Humalog given as 4 unit subcutaneously t.i.d., before meals as ordered. We will titrate incremental as indicated to optimize metabolic control. We will follow with . Irene Ambrose MD
[2016-11-30] MEDS: Sodium Chloride 0.9% 1,000 ML IV SCH (16:35)
--- NOTE | 2016-11-30 17:53 | CP.PCM.PN ---
Subjective - Date & Time of Evaluation Date of Evaluation: 11/30/16 Time of Evaluation: 17:51 - Subjective Subjective: Patient is visiting with family. She was out of bed to wheelchair earlier today. Notes by Drs. Groves/Easton, Thierry, Ting, and Arnol appreciated. Patient continues on iv meropenem, tigacycline, gentamicin, and daptomycin and po fluconazole for osteomyelitis R leg. Acc to notes, the right BK amputation and revision site is now clear with good granulation tissues and no purulence. DM controlled. Objective - Vital Signs/Intake and Output Vital Signs (last 24 hours): Temp Pulse Resp BP Pulse Ox 97.8 F 95 H 18 77/56 L 99 11/30/16 16:49 11/30/16 16:49 11/30/16 16:49 11/30/16 16:49 11/30/16 16:49 - Medications Medications: Current Medications Acetaminophen (Tylenol 325mg Tab) 650 mg PO Q4 PRN PRN Reason: Fever >100.4 F Last Admin: 11/21/16 00:44 Dose: 650 mg Acetaminophen (Tylenol 325mg Tab) 650 mg PO Q4 PRN PRN Reason: Pain, moderate (4-7) Last Admin: 09/16/16 22:34 Dose: 650 mg Albuterol Sulfate (Albuterol 0.083% Inhal Barbie (2.5 Mg/3 Ml) Ud) 2.5 mg INH RQ4 PRN PRN Reason: Shortness of Breath Albuterol/Ipratropium (Duoneb 3 Mg/0.5 Mg (3 Ml) Ud) 3 ml INH RQ4 PRN PRN Reason: Shortness of Breath Last Admin: 11/11/16 07:39 Dose: 3 ml Apixaban (Eliquis) 5 mg PO BID [facility] PRN Reason: Protocol Last Admin: 11/30/16 16:31 Dose: 5 mg Aspirin (Ecotrin) 81 mg PO DAILY [facility] Last Admin: 11/30/16 09:05 Dose: 81 mg Atorvastatin Calcium (Lipitor) 40 mg PO DAILY [facility] Last Admin: 11/30/16 09:05 Dose: 40 mg Benzonatate (Tessalon Perles) 200 mg PO TID PRN PRN Reason: Cough Last Admin: 11/21/16 09:06 Dose: 200 mg Calcium Carbonate (Oscal) 500 mg PO BIDWM [facility] Last Admin: 11/30/16 16:29 Dose: 500 mg Cinacalcet (Sensipar) 30 mg PO DAILY [facility] Last Admin: 11/30/16 09:08 Dose: 30 mg Collagenase (Santyl) 1 applic TOP DAILY [facility] Diphenhydramine HCl (Benadryl) 25 mg PO Q6 PRN PRN Reason: Itching / Pruritus Last Admin: 11/12/16 08:34 Dose: 25 mg Docusate Sodium (Colace) 100 mg PO BID [facility] Last Admin: 11/30/16 16:30 Dose: 100 mg Epoetin Tha (Procrit) 20,000 unit IV MWF [facility] Last Admin: 11/29/16 14:46 Dose: 20,000 unit Ergocalciferol (Drisdol 50,000 Intl Units Cap) 1 cap PO WED [facility] Last Admin: 11/27/16 08:32 Dose: 1 cap Fluconazole (Diflucan) 100 mg PO DAILY [facility] Last Admin: 11/30/16 09:08 Dose: 100 mg Gabapentin (Neurontin) 300 mg PO TID [facility] Last Admin: 11/30/16 16:29 Dose: 300 mg Hydrocortisone (Anusol-Hc) 1 applic GA BID PRN PRN Reason: Inflammation Hydromorphone HCl (Dilaudid) 1 mg IVP Q2H PRN PRN Reason: Pain, severe (8-10) Last Admin: 11/30/16 15:14 Dose: 1 mg Meropenem 500 mg/ Sodium (Chloride) 100 mls @ 100 mls/hr IVPB DAILY@0100 [facility] Last Admin: 11/30/16 00:34 Dose: 100 mls/hr Gentamicin Sulfate/Sodium Chloride (Gentamicin 100mg/100ml Ns) 100 mg in 100 mls @ 100 mls/hr IVPB MWF [facility] Last Admin: 11/29/16 08:55 Dose: 100 mls/hr Tigecycline 25 mg/ Sodium (Chloride) 100 mls @ 100 mls/hr IVPB Q12 [facility] Last Admin: 11/30/16 09:07 Dose: 100 mls/hr Sodium Chloride (Sodium Chloride 0.45%) 500 mls @ 10 mls/hr IV .Q24H [facility] Last Admin: 11/30/16 16:34 Dose: Not Given Daptomycin 650 mg/ Sodium (Chloride) 100 mls @ 100 mls/hr IVPB MWF@1800 [facility] Stop: 12/16/16 18:59 Last Admin: 11/29/16 19:18 Dose: 100 mls/hr Sodium Chloride (Sodium Chloride 0.9%) 1,000 mls @ 25 mls/hr IV .Q24H [facility] Last Admin: 11/30/16 16:35 Dose: Not Given Insulin Detemir (Levemir) 6 units SC HS [facility] Last Admin: 11/29/16 21:30 Dose: 6 units Insulin Human Lispro (Humalog) 4 units SC AC [facility] Last Admin: 11/30/16 16:35 Dose: 4 units Lidocaine (Lidoderm) 1 ea TD DAILY [facility] Last Admin: 11/30/16 09:06 Dose: 1 ea Nystatin (Nystop Topical Powder) 1 applic TOP BID [facility] Last Admin: 11/30/16 16:31 Dose: 1 applic Ondansetron HCl (Zofran Inj) 4 mg IVP Q6 PRN PRN Reason: Nausea/Vomiting Last Admin: 09/19/16 10:26 Dose: 4 mg Pantoprazole Sodium (Protonix Ec Tab) 40 mg PO DAILY [facility] Last Admin: 11/30/16 09:06 Dose: 40 mg Sennosides (Senokot Tab) 25.8 mg PO HS [facility] Last Admin: 11/29/16 21:30 Dose: 25.8 mg Sevelamer HCl (Renagel) 1,600 mg PO TID [facility] Last Admin: 11/30/16 16:32 Dose: 1,600 mg Topiramate (Topamax) 50 mg PO BID [facility] Last Admin: 11/30/16 16:30 Dose: 50 mg Vitamin B Complex/Vit C/Folic Acid (Nephro-Ajay) 1 tab PO DAILY [facility] Last Admin: 11/30/16 09:05 Dose: 1 tab - Labs Labs: 11/29/16 10:00 11/29/16 09:55 PT 17.2 Seconds (9.8-13.1) H 11/19/16 06:00 INR 1.5 (0.9-1.2) H 11/19/16 06:00 APTT 55.8 Seconds (25.6-37.1) H 11/19/16 06:00 - Constitutional Appears: No Acute Distress - Head Exam Head Exam: NORMAL INSPECTION - ENT Exam ENT Exam: Mucous Membranes Moist - Neck Exam Neck Exam: Normal Inspection - Respiratory Exam Respiratory Exam: Clear to Ausculation Bilateral, NORMAL BREATHING PATTERN - Cardiovascular Exam Cardiovascular Exam: REGULAR RHYTHM, +S1, +S2 - GI/Abdominal Exam GI & Abdominal Exam: Soft - Extremities Exam Additional comments: See Sujective for description of right BK wound. R knee with eschar. (Santyl reordered for this). Otherwise, no chanes. - Back Exam Back Exam: NORMAL INSPECTION - Neurological Exam Neurological Exam: Alert, Awake - Psychiatric Exam Psychiatric exam: Normal Affect, Normal Mood - Skin Skin Exam: Dry, Normal Color, Warm Assessment and Plan (1) Status post below knee amputation of right lower extremity Assessment & Plan: Making progress in wound healing. Status: Acute (2) ESRD (end stage renal disease) on dialysis Status: Chronic (3) DM type 2 (diabetes mellitus, type 2) Status: Chronic (4) Coagulopathy Status: Chronic (5) Peripheral arterial occlusive disease Status: Chronic
[2016-11-30] MEDS: Santyl Collagenase OINTMENT TOP SCH (18:28)
[2016-11-30] MEDS: Insulin Detemir 100 Units/ml Inj SC SCH (22:04)
[2016-12-01] MEDS: Meropenem 500 MG in Sodium Chloride 0.9% 100 ML IVPB SCH (00:13)
--- NOTE | 2016-12-01 00:37 | CP.PCM.PN ---
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 The wound is reported to be clean with a well formed granulation tissue. She is receiving 4 Antibiotics in addition to an Antifungus to help her severe Klebsiella Wound infection. She is following a regime of Hemodialysis on M,W,F for her ESRD. Her DM is controlled by Endocrinology. There is no reported seizures and she is receiving Po Topamax 50 mg BID. VS are still showing Tachycardia to a lesser extent. BP is within normal. She is interacting. She is receiving Eloquis. It is a big challenge to take care of her fluctuating condition and the team is working pretty well with Dr Thomas. Objective - Vital Signs/Intake and Output Vital Signs (last 24 hours): Temp Pulse Resp BP Pulse Ox 97.8 F 95 H 18 77/56 L 99 11/30/16 16:49 11/30/16 16:49 11/30/16 16:49 11/30/16 16:49 11/30/16 16:49 - Medications Medications: Current Medications Acetaminophen (Tylenol 325mg Tab) 650 mg PO Q4 PRN PRN Reason: Fever >100.4 F Last Admin: 11/21/16 00:44 Dose: 650 mg Acetaminophen (Tylenol 325mg Tab) 650 mg PO Q4 PRN PRN Reason: Pain, moderate (4-7) Last Admin: 09/16/16 22:34 Dose: 650 mg Albuterol Sulfate (Albuterol 0.083% Inhal Barbie (2.5 Mg/3 Ml) Ud) 2.5 mg INH RQ4 PRN PRN Reason: Shortness of Breath Albuterol/Ipratropium (Duoneb 3 Mg/0.5 Mg (3 Ml) Ud) 3 ml INH RQ4 PRN PRN Reason: Shortness of Breath Last Admin: 11/11/16 07:39 Dose: 3 ml Apixaban (Eliquis) 5 mg PO BID [facility] PRN Reason: Protocol Last Admin: 11/30/16 16:31 Dose: 5 mg Aspirin (Ecotrin) 81 mg PO DAILY [facility] Last Admin: 11/30/16 09:05 Dose: 81 mg Atorvastatin Calcium (Lipitor) 40 mg PO DAILY [facility] Last Admin: 11/30/16 09:05 Dose: 40 mg Benzonatate (Tessalon Perles) 200 mg PO TID PRN PRN Reason: Cough Last Admin: 11/21/16 09:06 Dose: 200 mg Calcium Carbonate (Oscal) 500 mg PO BIDWM [facility] Last Admin: 11/30/16 16:29 Dose: 500 mg Cinacalcet (Sensipar) 30 mg PO DAILY [facility] Last Admin: 11/30/16 09:08 Dose: 30 mg Collagenase (Santyl) 1 applic TOP DAILY [facility] Last Admin: 11/30/16 18:28 Dose: 1 applic Diphenhydramine HCl (Benadryl) 25 mg PO Q6 PRN PRN Reason: Itching / Pruritus Last Admin: 11/12/16 08:34 Dose: 25 mg Docusate Sodium (Colace) 100 mg PO BID [facility] Last Admin: 11/30/16 16:30 Dose: 100 mg [facility]etin [facility]a ([facility]) [facility] Last Admin: 11/29/16 14:46 Dose: 20,000 unit Ergocalciferol (Drisdol 50,000 Intl Units Cap) 1 cap PO WED [facility] Last Admin: 11/27/16 08:32 Dose: 1 cap Fluconazole (Diflucan) 100 mg PO DAILY [facility] Last Admin: 11/30/16 09:08 Dose: 100 mg Gabapentin (Neurontin) 300 mg PO TID [facility] Last Admin: 11/30/16 16:29 Dose: 300 mg Hydrocortisone (Anusol-Hc) 1 applic AL BID PRN PRN Reason: Inflammation Hydromorphone HCl (Dilaudid) 1 mg IVP Q2H PRN PRN Reason: Pain, severe (8-10) Last Admin: 11/30/16 22:02 Dose: 1 mg Meropenem 500 mg/ Sodium (Chloride) 100 mls @ 100 mls/hr IVPB DAILY@0100 [facility] Last Admin: 12/01/16 00:13 Dose: 100 mls/hr Gentamicin Sulfate/Sodium Chloride (Gentamicin 100mg/100ml Ns) 100 mg in 100 mls @ 100 mls/hr IVPB MWF [facility] Last Admin: 11/29/16 08:55 Dose: 100 mls/hr Tigecycline 25 mg/ Sodium (Chloride) 100 mls @ 100 mls/hr IVPB Q12 [facility] Last Admin: 11/30/16 21:57 Dose: 100 mls/hr Sodium Chloride (Sodium Chloride 0.45%) 500 mls @ 10 mls/hr IV .Q24H [facility] Last Admin: 11/30/16 16:34 Dose: Not Given Daptomycin 650 mg/ Sodium (Chloride) 100 mls @ 100 mls/hr IVPB MWF@1800 [facility] Stop: 12/16/16 18:59 Last Admin: 11/29/16 19:18 Dose: 100 mls/hr Sodium Chloride (Sodium Chloride 0.9%) 1,000 mls @ 25 mls/hr IV .Q24H [facility] Last Admin: 11/30/16 16:35 Dose: Not Given Insulin Detemir (Levemir) 6 units SC HS [facility] Last Admin: 11/30/16 22:04 Dose: 6 units Insulin Human Lispro (Humalog) 4 units SC AC [facility] Last Admin: 11/30/16 16:35 Dose: 4 units Lidocaine (Lidoderm) 1 ea TD DAILY [facility] Last Admin: 11/30/16 09:06 Dose: 1 ea Nystatin (Nystop Topical Powder) 1 applic TOP BID [facility] Last Admin: 11/30/16 16:31 Dose: 1 applic Ondansetron HCl (Zofran Inj) 4 mg IVP Q6 PRN PRN Reason: Nausea/Vomiting Last Admin: 09/19/16 10:26 Dose: 4 mg Pantoprazole Sodium (Protonix Ec Tab) 40 mg PO DAILY [facility] Last Admin: 11/30/16 09:06 Dose: 40 mg Sennosides (Senokot Tab) 25.8 mg PO [facility] Last Admin: 11/30/16 22:04 Dose: 25.8 mg Sevelamer HCl (Renagel) 1,600 mg PO TID [facility] Last Admin: 11/30/16 16:32 Dose: 1,600 mg Topiramate (Topamax) 50 mg PO BID [facility] Last Admin: 11/30/16 16:30 Dose: 50 mg Vitamin B Complex/Vit C/Folic Acid (Nephro-Ajay) 1 tab PO DAILY [facility] Last Admin: 11/30/16 09:05 Dose: 1 tab - Labs Labs: 11/29/16 10:00 11/29/16 09:55 PT 17.2 Seconds (9.8-13.1) H 11/19/16 06:00 INR 1.5 (0.9-1.2) H 11/19/16 06:00 APTT 55.8 Seconds (25.6-37.1) H 11/19/16 06:00 Assessment and Plan (1) Diabetes Status: Chronic (2) ESRD (end stage renal disease) Status: Chronic (3) Cellulitis of leg Status: Chronic (4) Hyperlipidemia Status: Chronic (5) Back pain Status: Acute (6) Bacteremia due to Gram-negative bacteria Status: Acute (7) Diabetes mellitus type 2 with peripheral artery disease Status: Chronic (8) PVD (peripheral vascular disease) Status: Chronic (9) Osteomyelitis of right leg Status: Acute
[2016-12-01] MEDS: Insulin Lispro (humaLOG) 100 Units/ml Inj SC SCH ×3 (08:37→17:34)
[2016-12-01] MEDS: Multivitamin Vitamin B Complex (Nephro-Vite) Tab PO SCH (08:47)
[2016-12-01] MEDS: Pantoprazole 40 mg EC Tab PO SCH (08:47)
[2016-12-01] MEDS: Lidocaine 5% Patch TD SCH (08:49)
[2016-12-01] MEDS: TIGECYCLINE IVPB SCH ×2 (08:50→20:56)
[2016-12-01] MEDS: SODIUM CHLORIDE 0.9% IVPB SCH ×2 (08:50→20:56)
[2016-12-01] MEDS: Santyl Collagenase OINTMENT TOP SCH (08:52)
--- NOTE | 2016-12-01 12:41 | CP.PCM.PN ---
<GermainSb - Last Filed: 12/01/16 12:38> Subjective - Date & Time of Evaluation Date of Evaluation: 12/01/16 Time of Evaluation: 12:38 - Subjective Subjective: Vascular surgery for Dr. Mccormack Pt s&yahir NOLAN. Dressing changed. Working w PT. Objective - Vital Signs/Intake and Output Vital Signs (last 24 hours): Temp Pulse Resp BP Pulse Ox 98.7 F 110 H 18 66/41 L 98 12/01/16 08:07 12/01/16 08:07 12/01/16 08:07 12/01/16 08:07 12/01/16 08:07 - Medications Medications: Current Medications Acetaminophen (Tylenol 325mg Tab) 650 mg PO Q4 PRN PRN Reason: Fever >100.4 F Last Admin: 11/21/16 00:44 Dose: 650 mg Acetaminophen (Tylenol 325mg Tab) 650 mg PO Q4 PRN PRN Reason: Pain, moderate (4-7) Last Admin: 09/16/16 22:34 Dose: 650 mg Albuterol Sulfate (Albuterol 0.083% Inhal Barbie (2.5 Mg/3 Ml) Ud) 2.5 mg INH RQ4 PRN PRN Reason: Shortness of Breath Albuterol/Ipratropium (Duoneb 3 Mg/0.5 Mg (3 Ml) Ud) 3 ml INH RQ4 PRN PRN Reason: Shortness of Breath Last Admin: 11/11/16 07:39 Dose: 3 ml Apixaban (Eliquis) 5 mg PO BID [facility] PRN Reason: Protocol Last Admin: 12/01/16 08:46 Dose: 5 mg Aspirin (Ecotrin) 81 mg PO DAILY [facility] Last Admin: 12/01/16 08:46 Dose: 81 mg Atorvastatin Calcium (Lipitor) 40 mg PO DAILY [facility] Last Admin: 12/01/16 08:48 Dose: 40 mg Benzonatate (Tessalon Perles) 200 mg PO TID PRN PRN Reason: Cough Last Admin: 11/21/16 09:06 Dose: 200 mg Calcium Carbonate (Oscal) 500 mg PO BIDWM [facility] Last Admin: 12/01/16 08:46 Dose: 500 mg Cinacalcet (Sensipar) 30 mg PO DAILY [facility] Last Admin: 12/01/16 08:47 Dose: 30 mg Collagenase (Santyl) 1 applic TOP DAILY [facility] Last Admin: 12/01/16 08:52 Dose: 1 applic Diphenhydramine HCl (Benadryl) 25 mg PO Q6 PRN PRN Reason: Itching / Pruritus Last Admin: 11/12/16 08:34 Dose: 25 mg Docusate Sodium (Colace) 100 mg PO BID [facility] Last Admin: 12/01/16 08:38 Dose: 100 mg Epoetin Tha (Procrit) 20,000 unit IV MWF [facility] Last Admin: 11/29/16 14:46 Dose: 20,000 unit Ergocalciferol (Drisdol 50,000 Intl Units Cap) 1 cap PO WED [facility] Last Admin: 11/27/16 08:32 Dose: 1 cap Fluconazole (Diflucan) 100 mg PO DAILY [facility] Last Admin: 12/01/16 08:48 Dose: 100 mg Gabapentin (Neurontin) 300 mg PO TID [facility] Last Admin: 12/01/16 12:27 Dose: 300 mg Hydrocortisone (Anusol-Hc) 1 applic HI BID PRN PRN Reason: Inflammation Hydromorphone HCl (Dilaudid) 1 mg IVP Q2H PRN PRN Reason: Pain, severe (8-10) Last Admin: 12/01/16 10:46 Dose: 1 mg Meropenem 500 mg/ Sodium (Chloride) 100 mls @ 100 mls/hr IVPB DAILY@0100 [facility] Last Admin: 12/01/16 00:13 Dose: 100 mls/hr Gentamicin Sulfate/Sodium Chloride (Gentamicin 100mg/100ml Ns) 100 mg in 100 mls @ 100 mls/hr IVPB MWF [facility] Last Admin: 11/29/16 08:55 Dose: 100 mls/hr Tigecycline 25 mg/ Sodium (Chloride) 100 mls @ 100 mls/hr IVPB Q12 [facility] Last Admin: 12/01/16 08:50 Dose: 100 mls/hr Sodium Chloride (Sodium Chloride 0.45%) 500 mls @ 10 mls/hr IV .Q24H [facility] Last Admin: 11/30/16 16:34 Dose: Not Given Daptomycin 650 mg/ Sodium (Chloride) 100 mls @ 100 mls/hr IVPB MWF@1800 [facility] Stop: 12/16/16 18:59 Last Admin: 11/29/16 19:18 Dose: 100 mls/hr Sodium Chloride (Sodium Chloride 0.9%) 1,000 mls @ 25 mls/hr IV .Q24H [facility] Last Admin: 11/30/16 16:35 Dose: Not Given Insulin Detemir (Levemir) 6 units SC HS [facility] Last Admin: 11/30/16 22:04 Dose: 6 units Insulin Human Lispro (Humalog) 4 units SC AC [facility] Last Admin: 12/01/16 08:37 Dose: 4 units Lidocaine (Lidoderm) 1 ea TD DAILY [facility] Last Admin: 12/01/16 08:49 Dose: 1 ea Nystatin (Nystop Topical Powder) 1 applic TOP BID [facility] Last Admin: 12/01/16 08:51 Dose: 1 applic Ondansetron HCl (Zofran Inj) 4 mg IVP Q6 PRN PRN Reason: Nausea/Vomiting Last Admin: 09/19/16 10:26 Dose: 4 mg Pantoprazole Sodium (Protonix Ec Tab) 40 mg PO DAILY [facility] Last Admin: 12/01/16 08:47 Dose: 40 mg Sennosides (Senokot Tab) 25.8 mg PO [facility] Last Admin: 11/30/16 22:04 Dose: 25.8 mg Sevelamer HCl (Renagel) 1,600 mg PO TID [facility] Last Admin: 12/01/16 12:27 Dose: 1,600 mg Topiramate (Topamax) 50 mg PO BID [facility] Last Admin: 12/01/16 08:48 Dose: 50 mg Vitamin B Complex/Vit C/Folic Acid (Nephro-Ajay) 1 tab PO DAILY [facility] Last Admin: 12/01/16 08:47 Dose: 1 tab - Labs Labs: 11/29/16 10:00 11/29/16 09:55 PT 17.2 Seconds (9.8-13.1) H 11/19/16 06:00 INR 1.5 (0.9-1.2) H 11/19/16 06:00 APTT 55.8 Seconds (25.6-37.1) H 11/19/16 06:00 - Constitutional Appears: No Acute Distress - Head Exam Head Exam: ATRAUMATIC, NORMAL INSPECTION, NORMOCEPHALIC - Eye Exam Eye Exam: EOMI, Normal appearance, PERRL Pupil Exam: NORMAL ACCOMODATION, PERRL - ENT Exam ENT Exam: Mucous Membranes Moist, Normal Exam - Neck Exam Neck Exam: Full ROM, Normal Inspection. absent: Lymphadenopathy - Respiratory Exam Respiratory Exam: Clear to Ausculation Bilateral, NORMAL BREATHING PATTERN - Cardiovascular Exam Cardiovascular Exam: REGULAR RHYTHM, +S1, +S2. absent: Murmur - GI/Abdominal Exam GI & Abdominal Exam: Soft. absent: Tenderness - Exam Exam: NORMAL INSPECTION - Extremities Exam Extremities Exam: Normal Capillary Refill. absent: Joint Swelling, Pedal Edema Additional comments: b/l BKA. R stump open wound. Granulation tissue. No krystal puss. No bleeding. - Back Exam Back Exam: NORMAL INSPECTION - Neurological Exam Neurological Exam: Alert, Awake, CN II-XII Intact, Oriented x3 - Psychiatric Exam Psychiatric exam: Normal Affect, Normal Mood - Skin Skin Exam: Dry, Intact, Normal Color, Warm Assessment and Plan - Assessment and Plan (Free Text) Assessment: 46F s/p R BKA (10/01) w/revision and wash out (11/19, 11/29) -Will wet/dry dressing change PRN -c/w local wound care -c/w abx -will continue to follow closely -Possible repeat washout and wound vac Tues. -Will hold Eliquis for surgery -d/w attending <Raffy Mccormack - Last Filed: 12/03/16 14:53> Objective - Vital Signs/Intake and Output Vital Signs (last 24 hours): Temp Pulse Resp BP Pulse Ox 98.2 F 93 H 18 114/54 L 97 12/03/16 11:55 12/03/16 11:55 12/03/16 11:55 12/03/16 11:55 12/03/16 11:55 Intake and Output: 12/03/16 12/03/16 06:59 18:59 Intake Total 200 Balance 200 - Medications Medications: Current Medications Acetaminophen (Tylenol 325mg Tab) 650 mg PO Q4 PRN PRN Reason: Fever >100.4 F Last Admin: 11/21/16 00:44 Dose: 650 mg Acetaminophen (Tylenol 325mg Tab) 650 mg PO Q4 PRN PRN Reason: Pain, moderate (4-7) Last Admin: 09/16/16 22:34 Dose: 650 mg Albuterol Sulfate (Albuterol 0.083% Inhal Barbie (2.5 Mg/3 Ml) Ud) 2.5 mg INH RQ4 PRN PRN Reason: Shortness of Breath Albuterol/Ipratropium (Duoneb 3 Mg/0.5 Mg (3 Ml) Ud) 3 ml INH RQ4 PRN PRN Reason: Shortness of Breath Last Admin: 11/11/16 07:39 Dose: 3 ml Apixaban (Eliquis) 5 mg PO BID [facility] PRN Reason: Protocol Last Admin: 12/01/16 08:46 Dose: 5 mg Aspirin (Ecotrin) 81 mg PO DAILY [facility] Last Admin: 12/03/16 08:30 Dose: Not Given Atorvastatin Calcium (Lipitor) 40 mg PO DAILY [facility] Last Admin: 12/03/16 13:55 Dose: 40 mg Benzonatate (Tessalon Perles) 200 mg PO TID PRN PRN Reason: Cough Last Admin: 11/21/16 09:06 Dose: 200 mg Calcium Carbonate (Oscal) 500 mg PO BIDWM [facility] Last Admin: 12/03/16 08:31 Dose: Not Given Cinacalcet (Sensipar) 30 mg PO DAILY [facility] Last Admin: 12/03/16 13:59 Dose: 30 mg Collagenase (Santyl) 1 applic TOP DAILY [facility] Last Admin: 12/03/16 08:32 Dose: Not Given Diphenhydramine HCl (Benadryl) 25 mg PO Q6 PRN PRN Reason: Itching / Pruritus Last Admin: 11/12/16 08:34 Dose: 25 mg Docusate Sodium (Colace) 100 mg PO BID [facility] Last Admin: 12/03/16 08:23 Dose: Not Given Epoetin Tha (Procrit) 20,000 unit IV MWF [facility] Last Admin: 12/02/16 14:54 Dose: 20,000 unit Ergocalciferol (Drisdol 50,000 Intl Units Cap) 1 cap PO WED [facility] Last Admin: 11/27/16 08:32 Dose: 1 cap Fluconazole (Diflucan) 100 mg PO DAILY [facility] Last Admin: 12/03/16 13:55 Dose: 100 mg Gabapentin (Neurontin) 300 mg PO TID [facility] Last Admin: 12/03/16 13:04 Dose: 300 mg Hydrocortisone (Anusol-Hc) 1 applic HI BID PRN PRN Reason: Inflammation Hydromorphone HCl (Dilaudid) 1 mg IVP Q2H PRN PRN Reason: Pain, severe (8-10) Last Admin: 12/03/16 14:10 Dose: 1 mg Meropenem 500 mg/ Sodium (Chloride) 100 mls @ 100 mls/hr IVPB DAILY@0100 [facility] Last Admin: 12/03/16 00:43 Dose: 100 mls/hr Gentamicin Sulfate/Sodium Chloride (Gentamicin 100mg/100ml Ns) 100 mg in 100 mls @ 100 mls/hr IVPB MWF [facility] Last Admin: 12/02/16 16:00 Dose: 100 mls/hr Tigecycline 25 mg/ Sodium (Chloride) 100 mls @ 100 mls/hr IVPB Q12 [facility] Last Admin: 12/03/16 10:00 Dose: Not Given Sodium Chloride (Sodium Chloride 0.45%) 500 mls @ 10 mls/hr IV .Q24H [facility] Last Admin: 12/03/16 14:02 Dose: Not Given Daptomycin 650 mg/ Sodium (Chloride) 100 mls @ 100 mls/hr IVPB MWF@1800 [facility] Stop: 12/16/16 18:59 Last Admin: 12/02/16 17:35 Dose: 100 mls/hr Sodium Chloride (Sodium Chloride 0.9%) 1,000 mls @ 25 mls/hr IV .Q24H [facility] Last Admin: 12/03/16 14:00 Dose: Not Given Insulin Detemir (Levemir) 6 units SC HS [facility] Last Admin: 12/02/16 21:36 Dose: 6 units Insulin Human Lispro (Humalog) 4 units SC AC [facility] Last Admin: 12/03/16 12:53 Dose: 4 units Lidocaine (Lidoderm) 1 ea TD DAILY [facility] Last Admin: 12/03/16 08:31 Dose: Not Given Nystatin (Nystop Topical Powder) 1 applic TOP BID [facility] Last Admin: 12/03/16 08:36 Dose: Not Given Ondansetron HCl (Zofran Inj) 4 mg IVP Q6 PRN PRN Reason: Nausea/Vomiting Last Admin: 09/19/16 10:26 Dose: 4 mg Pantoprazole Sodium (Protonix Ec Tab) 40 mg PO DAILY [facility] Last Admin: 12/03/16 13:57 Dose: 40 mg Sennosides (Senokot Tab) 25.8 mg PO HS [facility] Last Admin: 12/02/16 21:34 Dose: 25.8 mg Sevelamer HCl (Renagel) 1,600 mg PO TID [facility] Last Admin: 12/03/16 13:01 Dose: 1,600 mg Topiramate (Topamax) 50 mg PO BID [facility] Last Admin: 12/03/16 08:32 Dose: Not Given Vitamin B Complex/Vit C/Folic Acid (Nephro-Ajay) 1 tab PO DAILY [facility] Last Admin: 12/03/16 13:07 Dose: 1 tab - Labs Labs: 12/02/16 13:05 12/02/16 13:05 PT 15.3 Seconds (9.8-13.1) H 12/02/16 13:05 INR 1.4 (0.9-1.2) H 12/02/16 13:05 APTT 37.0 Seconds (25.6-37.1) 12/02/16 13:05 Assessment and Plan - Assessment and Plan (Free Text) Plan: Patient remains clinically stable. No systemic signs of infection. Continue current care, daily wound exams and dressing changes.
--- NOTE | 2016-12-01 12:57 | PN ---
LOCATION: Room #661 SUBJECTIVE: This is a 46-year-old female with recent uncontrolled type 2 insulin requiring diabetes now being followed closely for metabolic management. Her glycemic levels are fluctuating, but much improved at this time and the latest chemistry show the BUN of *------*, sodium 139, potassium 5.1, chloride 101, CO2 of 24, glucose 121, creatinine 6.8, so at this time we will continue the same basal and bolus insulin regimen as given with Levemir given as 6 units subQ at bedtime daily as ordered. We will continue the Humalog given as 4 units subQ t.i.d. before meals as given. We will titrate incremental as indicated to optimize metabolic control. We will follow with you. Irene Ambrose MD
--- NOTE | 2016-12-01 17:36 | CP.PCM.PN ---
Subjective - Date & Time of Evaluation Date of Evaluation: 12/01/16 Time of Evaluation: 17:30 - Subjective Subjective: Patient is comortable, about to eat supper. No pain or dyspnea. No seizures. Notes by DRs. Maguire and Germain kwok. Patient is now off Eliquis for the 48 hour time period preceeding the planned wound wash-out and application of wound vac on 12/03. We should remember to avoid excessive negative pressures in order to avoid collapsing the delicate capillaries and actually making for more ischemia. For HD tomorrow. Will order CBC and CMP to be drawn by dialysis nurse. DM controlled. Good appetite and elimination. Objective - Vital Signs/Intake and Output Vital Signs (last 24 hours): Temp Pulse Resp BP Pulse Ox 97.4 F L 97 H 18 90/60 L 96 12/01/16 16:34 12/01/16 16:34 12/01/16 16:34 12/01/16 16:34 12/01/16 16:34 - Medications Medications: Current Medications Acetaminophen (Tylenol 325mg Tab) 650 mg PO Q4 PRN PRN Reason: Fever >100.4 F Last Admin: 11/21/16 00:44 Dose: 650 mg Acetaminophen (Tylenol 325mg Tab) 650 mg PO Q4 PRN PRN Reason: Pain, moderate (4-7) Last Admin: 09/16/16 22:34 Dose: 650 mg Albuterol Sulfate (Albuterol 0.083% Inhal Barbie (2.5 Mg/3 Ml) Ud) 2.5 mg INH RQ4 PRN PRN Reason: Shortness of Breath Albuterol/Ipratropium (Duoneb 3 Mg/0.5 Mg (3 Ml) Ud) 3 ml INH RQ4 PRN PRN Reason: Shortness of Breath Last Admin: 11/11/16 07:39 Dose: 3 ml Apixaban (Eliquis) 5 mg PO BID [facility] PRN Reason: Protocol Last Admin: 12/01/16 08:46 Dose: 5 mg Aspirin (Ecotrin) 81 mg PO DAILY [facility] Last Admin: 12/01/16 08:46 Dose: 81 mg Atorvastatin Calcium (Lipitor) 40 mg PO DAILY [facility] Last Admin: 12/01/16 08:48 Dose: 40 mg Benzonatate (Tessalon Perles) 200 mg PO TID PRN PRN Reason: Cough Last Admin: 11/21/16 09:06 Dose: 200 mg Calcium Carbonate (Oscal) 500 mg PO BIDWM [facility] Last Admin: 12/01/16 08:46 Dose: 500 mg Cinacalcet (Sensipar) 30 mg PO DAILY [facility] Last Admin: 12/01/16 08:47 Dose: 30 mg Collagenase (Santyl) 1 applic TOP DAILY [facility] Last Admin: 12/01/16 08:52 Dose: 1 applic Diphenhydramine HCl (Benadryl) 25 mg PO Q6 PRN PRN Reason: Itching / Pruritus Last Admin: 11/12/16 08:34 Dose: 25 mg Docusate Sodium (Colace) 100 mg PO BID [facility] Last Admin: 12/01/16 08:38 Dose: 100 mg Epoetin Tha (Procrit) 20,000 unit IV [facility] [place] Last Admin: 11/29/16 14:46 Dose: 20,000 unit Ergocalciferol (Drisdol 50,000 Intl Units Cap) 1 cap PO WED [facility] Last Admin: 11/27/16 08:32 Dose: 1 cap Fluconazole (Diflucan) 100 mg PO DAILY [facility] Last Admin: 12/01/16 08:48 Dose: 100 mg Gabapentin (Neurontin) 300 mg PO TID [facility] Last Admin: 12/01/16 12:27 Dose: 300 mg Hydrocortisone (Anusol-Hc) 1 applic [place] BID PRN PRN Reason: Inflammation Hydromorphone HCl (Dilaudid) 1 mg IVP Q2H PRN PRN Reason: Pain, severe (8-10) Last Admin: 12/01/16 14:43 Dose: 1 mg Meropenem 500 mg/ Sodium (Chloride) 100 mls @ 100 mls/hr IVPB DAILY@0100 [facility] Last Admin: 12/01/16 00:13 Dose: 100 mls/hr Gentamicin Sulfate/Sodium Chloride (Gentamicin 100mg/100ml Ns) 100 mg in 100 mls @ 100 mls/hr IVPB MWF [facility] Last Admin: 11/29/16 08:55 Dose: 100 mls/hr Tigecycline 25 mg/ Sodium (Chloride) 100 mls @ 100 mls/hr IVPB Q12 [facility] Last Admin: 12/01/16 08:50 Dose: 100 mls/hr Sodium Chloride (Sodium Chloride 0.45%) 500 mls @ 10 mls/hr IV .Q24H [facility] Last Admin: 11/30/16 16:34 Dose: Not Given Daptomycin 650 mg/ Sodium (Chloride) 100 mls @ 100 mls/hr IVPB MWF@1800 [facility] Stop: 12/16/16 18:59 Last Admin: 11/29/16 19:18 Dose: 100 mls/hr Sodium Chloride (Sodium Chloride 0.9%) 1,000 mls @ 25 mls/hr IV .Q24H [facility] Last Admin: 11/30/16 16:35 Dose: Not Given Insulin Detemir (Levemir) 6 units SC HS [facility] Last Admin: 11/30/16 22:04 Dose: 6 units Insulin Human Lispro (Humalog) 4 units SC AC [facility] Last Admin: 12/01/16 08:37 Dose: 4 units Lidocaine (Lidoderm) 1 ea TD DAILY [facility] Last Admin: 12/01/16 08:49 Dose: 1 ea Nystatin (Nystop Topical Powder) 1 applic TOP BID [facility] Last Admin: 12/01/16 08:51 Dose: 1 applic Ondansetron HCl (Zofran Inj) 4 mg IVP Q6 PRN PRN Reason: Nausea/Vomiting Last Admin: 09/19/16 10:26 Dose: 4 mg Pantoprazole Sodium (Protonix Ec Tab) 40 mg PO DAILY [facility] Last Admin: 12/01/16 08:47 Dose: 40 mg Sennosides (Senokot Tab) 25.8 mg PO [facility] Last Admin: 11/30/16 22:04 Dose: 25.8 mg Sevelamer HCl (Renagel) 1,600 mg PO TID [facility] Last Admin: 12/01/16 12:27 Dose: 1,600 mg Topiramate (Topamax) 50 mg PO BID [facility] Last Admin: 12/01/16 08:48 Dose: 50 mg Vitamin B Complex/Vit C/Folic Acid (Nephro-Ajay) 1 tab PO DAILY [facility] Last Admin: 12/01/16 08:47 Dose: 1 tab - Labs Labs: 11/29/16 10:00 11/29/16 09:55 PT 17.2 Seconds (9.8-13.1) H 11/19/16 06:00 INR 1.5 (0.9-1.2) H 11/19/16 06:00 APTT 55.8 Seconds (25.6-37.1) H 11/19/16 06:00 - Head Exam Head Exam: NORMAL INSPECTION - Eye Exam Eye Exam: Normal appearance - ENT Exam ENT Exam: Mucous Membranes Moist - Neck Exam Neck Exam: Normal Inspection Additional comments: Right subclavian Permacath intact. - Respiratory Exam Respiratory Exam: Clear to Ausculation Bilateral, NORMAL BREATHING PATTERN - Cardiovascular Exam Cardiovascular Exam: REGULAR RHYTHM, +S1, +S2 - GI/Abdominal Exam GI & Abdominal Exam: Soft - Extremities Exam Additional comments: Dressing intact R BK site. See note by Dr. Groves for wound details. L femoral vein PICC line intact. Other extremities as before. - Back Exam Back Exam: NORMAL INSPECTION - Neurological Exam Neurological Exam: Alert, Awake, Oriented x3 - Psychiatric Exam Psychiatric exam: Normal Affect, Normal Mood Assessment and Plan (1) Status post below knee amputation of right lower extremity Assessment & Plan: Infection appears to be resolving. SEE SUBJECTIVE. Patient is stable for washout under anesthesia on 12/03. Status: Acute (2) ESRD (end stage renal disease) on dialysis Status: Chronic (3) DM type 2 (diabetes mellitus, type 2) Status: Chronic (4) Coagulopathy Status: Chronic (5) Peripheral arterial occlusive disease Status: Chronic
[2016-12-01] MEDS: Sodium Chloride 0.9% 1,000 ML IV SCH (17:37)
[2016-12-01] MEDS: Insulin Detemir 100 Units/ml Inj SC SCH (22:28)
--- NOTE | 2016-12-01 22:36 | CP.PCM.PN ---
Subjective - Date & Time of Evaluation Date of Evaluation: 12/01/16 Time of Evaluation: 20:00 - Subjective Subjective: 46 years old Female has multiple amputations of her LEs due to PVD, recurrent Osteomyelitis and has Right BKA stump Pain on and off. No seizures are reported. She is on Po Topamax 50 mg BID. She has a controlled DM, as per labs and Dr Ambrose's note ( Endocrinology) Hemodialysis in AM according to the schedule of M,W, for her ESRD. The Right leg infection is reported to be well controlled. She is receiving IV Antibiotics and a P.O Antifungal. Objective - Vital Signs/Intake and Output Vital Signs (last 24 hours): Temp Pulse Resp BP Pulse Ox 97.4 F L 97 H 18 90/60 L 96 12/01/16 16:34 12/01/16 16:34 12/01/16 16:34 12/01/16 16:34 12/01/16 16:34 - Medications Medications: Current Medications Acetaminophen (Tylenol 325mg Tab) 650 mg PO Q4 PRN PRN Reason: Fever >100.4 F Last Admin: 11/21/16 00:44 Dose: 650 mg Acetaminophen (Tylenol 325mg Tab) 650 mg PO Q4 PRN PRN Reason: Pain, moderate (4-7) Last Admin: 09/16/16 22:34 Dose: 650 mg Albuterol Sulfate (Albuterol 0.083% Inhal Barbie (2.5 Mg/3 Ml) Ud) 2.5 mg INH RQ4 PRN PRN Reason: Shortness of Breath Albuterol/Ipratropium (Duoneb 3 Mg/0.5 Mg (3 Ml) Ud) 3 ml INH RQ4 PRN PRN Reason: Shortness of Breath Last Admin: 11/11/16 07:39 Dose: 3 ml Apixaban (Eliquis) 5 mg PO BID [facility] PRN Reason: Protocol Last Admin: 12/01/16 08:46 Dose: 5 mg Aspirin (Ecotrin) 81 mg PO DAILY [facility] Last Admin: 12/01/16 08:46 Dose: 81 mg Atorvastatin Calcium (Lipitor) 40 mg PO DAILY [facility] Last Admin: 12/01/16 08:48 Dose: 40 mg Benzonatate (Tessalon Perles) 200 mg PO TID PRN PRN Reason: Cough Last Admin: 11/21/16 09:06 Dose: 200 mg Calcium Carbonate (Oscal) 500 mg PO BIDWM [facility] Last Admin: 12/01/16 17:32 Dose: 500 mg Cinacalcet (Sensipar) 30 mg PO DAILY [facility] Last Admin: 12/01/16 08:47 Dose: 30 mg Collagenase (Santyl) 1 applic TOP DAILY [facility] Last Admin: 12/01/16 08:52 Dose: 1 applic Diphenhydramine HCl (Benadryl) 25 mg PO Q6 PRN PRN Reason: Itching / Pruritus Last Admin: 11/12/16 08:34 Dose: 25 mg Docusate Sodium (Colace) 100 mg PO BID [facility] Last Admin: 12/01/16 17:34 Dose: 100 mg Epoetin Tha (Procrit) 20,000 unit IV [facility] Last Admin: 11/29/16 14:46 Dose: 20,000 unit Ergocalciferol (Drisdol 50,000 Intl Units Cap) 1 cap PO WED [facility] Last Admin: 11/27/16 08:32 Dose: 1 cap Fluconazole (Diflucan) 100 mg PO DAILY [facility] Last Admin: 12/01/16 08:48 Dose: 100 mg Gabapentin (Neurontin) 300 mg PO TID [facility] Last Admin: 12/01/16 17:32 Dose: 300 mg Hydrocortisone (Anusol-Hc) 1 applic [place] BID PRN PRN Reason: Inflammation Hydromorphone HCl (Dilaudid) 1 mg IVP Q2H PRN PRN Reason: Pain, severe (8-10) Last Admin: 12/01/16 18:30 Dose: 1 mg Meropenem 500 mg/ Sodium (Chloride) 100 mls @ 100 mls/hr IVPB DAILY@0100 [facility] Last Admin: 12/01/16 00:13 Dose: 100 mls/hr Gentamicin Sulfate/Sodium Chloride (Gentamicin 100mg/100ml Ns) 100 mg in 100 mls @ 100 mls/hr IVPB MWF [facility] Last Admin: 11/29/16 08:55 Dose: 100 mls/hr Tigecycline 25 mg/ Sodium (Chloride) 100 mls @ 100 mls/hr IVPB Q12 [facility] Last Admin: 12/01/16 20:56 Dose: 100 mls/hr Sodium Chloride (Sodium Chloride 0.45%) 500 mls @ 10 mls/hr IV .Q24H [facility] Last Admin: 12/01/16 18:45 Dose: 10 mls/hr Daptomycin 650 mg/ Sodium (Chloride) 100 mls @ 100 mls/hr IVPB MWF@1800 [facility] Stop: 12/16/16 18:59 Last Admin: 11/29/16 19:18 Dose: 100 mls/hr Sodium Chloride (Sodium Chloride 0.9%) 1,000 mls @ 25 mls/hr IV .Q24H [facility] Last Admin: 12/01/16 17:37 Dose: Not Given Insulin Detemir (Levemir) 6 units SC HS [facility] Last Admin: 11/30/16 22:04 Dose: 6 units Insulin Human Lispro (Humalog) 4 units SC AC [facility] Last Admin: 12/01/16 17:34 Dose: 4 units Lidocaine (Lidoderm) 1 ea TD DAILY [facility] Last Admin: 12/01/16 08:49 Dose: 1 ea Nystatin (Nystop Topical Powder) 1 applic TOP BID [facility] Last Admin: 12/01/16 17:35 Dose: 1 applic Ondansetron HCl (Zofran Inj) 4 mg IVP Q6 PRN PRN Reason: Nausea/Vomiting Last Admin: 09/19/16 10:26 Dose: 4 mg Pantoprazole Sodium (Protonix Ec Tab) 40 mg PO DAILY [facility] Last Admin: 12/01/16 08:47 Dose: 40 mg Sennosides (Senokot Tab) 25.8 mg PO [facility] Last Admin: 12/01/16 22:17 Dose: 25.8 mg Sevelamer HCl (Renagel) 1,600 mg PO TID [facility] Last Admin: 12/01/16 17:31 Dose: 1,600 mg Topiramate (Topamax) 50 mg PO BID [facility] Last Admin: 12/01/16 17:32 Dose: 50 mg Vitamin B Complex/Vit C/Folic Acid (Nephro-Ajay) 1 tab PO DAILY [facility] Last Admin: 12/01/16 08:47 Dose: 1 tab - Labs Labs: 11/29/16 10:00 11/29/16 09:55 PT 17.2 Seconds (9.8-13.1) H 11/19/16 06:00 INR 1.5 (0.9-1.2) H 11/19/16 06:00 APTT 55.8 Seconds (25.6-37.1) H 11/19/16 06:00 Assessment and Plan (1) Diabetes Status: Chronic (2) ESRD (end stage renal disease) Status: Chronic (3) Cellulitis of leg Status: Chronic (4) Hyperlipidemia Status: Chronic (5) Back pain Status: Acute (6) Bacteremia due to Gram-negative bacteria Status: Acute (7) PVD (peripheral vascular disease) Status: Chronic (8) Osteomyelitis of right leg Status: Acute
[2016-12-02] MEDS: Meropenem 500 MG in Sodium Chloride 0.9% 100 ML IVPB SCH (00:35)
--- NOTE | 2016-12-02 08:07 | CP.PCM.PN ---
<Jacques Amado - Last Filed: 12/02/16 08:02> Subjective - Date & Time of Evaluation Date of Evaluation: 12/02/16 Time of Evaluation: 08:02 - Subjective Subjective: Surgery Progress note. Dr. Mccormack Pt seen and examined overnight. No new complaints. No acute events overnight. Continues to work with PT. Objective - Vital Signs/Intake and Output Vital Signs (last 24 hours): Temp Pulse Resp BP Pulse Ox 97.6 F 97 H 19 115/59 L 100 12/02/16 00:04 12/02/16 00:04 12/02/16 00:04 12/02/16 00:04 12/02/16 00:04 - Medications Medications: Current Medications Acetaminophen (Tylenol 325mg Tab) 650 mg PO Q4 PRN PRN Reason: Fever >100.4 F Last Admin: 11/21/16 00:44 Dose: 650 mg Acetaminophen (Tylenol 325mg Tab) 650 mg PO Q4 PRN PRN Reason: Pain, moderate (4-7) Last Admin: 09/16/16 22:34 Dose: 650 mg Albuterol Sulfate (Albuterol 0.083% Inhal Barbie (2.5 Mg/3 Ml) Ud) 2.5 mg INH RQ4 PRN PRN Reason: Shortness of Breath Albuterol/Ipratropium (Duoneb 3 Mg/0.5 Mg (3 Ml) Ud) 3 ml INH RQ4 PRN PRN Reason: Shortness of Breath Last Admin: 11/11/16 07:39 Dose: 3 ml Apixaban (Eliquis) 5 mg PO BID [facility] PRN Reason: Protocol Last Admin: 12/01/16 08:46 Dose: 5 mg Aspirin (Ecotrin) 81 mg PO DAILY [facility] Last Admin: 12/01/16 08:46 Dose: 81 mg Atorvastatin Calcium (Lipitor) 40 mg PO DAILY [facility] Last Admin: 12/01/16 08:48 Dose: 40 mg Benzonatate (Tessalon Perles) 200 mg PO TID PRN PRN Reason: Cough Last Admin: 11/21/16 09:06 Dose: 200 mg Calcium Carbonate (Oscal) 500 mg PO BIDWM [facility] Last Admin: 12/01/16 17:32 Dose: 500 mg Cinacalcet (Sensipar) 30 mg PO DAILY [facility] Last Admin: 12/01/16 08:47 Dose: 30 mg Collagenase (Santyl) 1 applic TOP DAILY [facility] Last Admin: 12/01/16 08:52 Dose: 1 applic Diphenhydramine HCl (Benadryl) 25 mg PO Q6 PRN PRN Reason: Itching / Pruritus Last Admin: 11/12/16 08:34 Dose: 25 mg Docusate Sodium (Colace) 100 mg PO BID [facility] Last Admin: 12/01/16 17:34 Dose: 100 mg Epoetin Tha (Procrit) 20,000 unit IV MWF [facility] Last Admin: 11/29/16 14:46 Dose: 20,000 unit Ergocalciferol (Drisdol 50,000 Intl Units Cap) 1 cap PO WED [facility] Last Admin: 11/27/16 08:32 Dose: 1 cap Fluconazole (Diflucan) 100 mg PO DAILY [facility] Last Admin: 12/01/16 08:48 Dose: 100 mg Gabapentin (Neurontin) 300 mg PO TID [facility] Last Admin: 12/01/16 17:32 Dose: 300 mg Hydrocortisone (Anusol-Hc) 1 applic [place] BID PRN PRN Reason: Inflammation Hydromorphone HCl (Dilaudid) 1 mg IVP Q2H PRN PRN Reason: Pain, severe (8-10) Last Admin: 12/02/16 04:36 Dose: 1 mg Meropenem 500 mg/ Sodium (Chloride) 100 mls @ 100 mls/hr IVPB DAILY@0100 [facility] Last Admin: 12/02/16 00:35 Dose: 100 mls/hr Gentamicin Sulfate/Sodium Chloride (Gentamicin 100mg/100ml Ns) 100 mg in 100 mls @ 100 mls/hr IVPB MWF [facility] Last Admin: 11/29/16 08:55 Dose: 100 mls/hr Tigecycline 25 mg/ Sodium (Chloride) 100 mls @ 100 mls/hr IVPB Q12 [facility] Last Admin: 12/01/16 20:56 Dose: 100 mls/hr Sodium Chloride (Sodium Chloride 0.45%) 500 mls @ 10 mls/hr IV .Q24H [facility] Last Admin: 12/01/16 18:45 Dose: 10 mls/hr Daptomycin 650 mg/ Sodium (Chloride) 100 mls @ 100 mls/hr IVPB MWF@1800 [facility] Stop: 12/16/16 18:59 Last Admin: 11/29/16 19:18 Dose: 100 mls/hr Sodium Chloride (Sodium Chloride 0.9%) 1,000 mls @ 25 mls/hr IV .Q24H [facility] Last Admin: 12/01/16 17:37 Dose: Not Given Insulin Detemir (Levemir) 6 units SC HS [facility] Last Admin: 12/01/16 22:28 Dose: 6 units Insulin Human Lispro (Humalog) 4 units SC AC [facility] Last Admin: 12/01/16 17:34 Dose: 4 units Lidocaine (Lidoderm) 1 ea TD DAILY [facility] Last Admin: 12/01/16 08:49 Dose: 1 ea Nystatin (Nystop Topical Powder) 1 applic TOP BID [facility] Last Admin: 12/01/16 17:35 Dose: 1 applic Ondansetron HCl (Zofran Inj) 4 mg IVP Q6 PRN PRN Reason: Nausea/Vomiting Last Admin: 09/19/16 10:26 Dose: 4 mg Pantoprazole Sodium (Protonix Ec Tab) 40 mg PO DAILY [facility] Last Admin: 12/01/16 08:47 Dose: 40 mg Sennosides (Senokot Tab) 25.8 mg PO HS [facility] Last Admin: 12/01/16 22:17 Dose: 25.8 mg Sevelamer HCl (Renagel) 1,600 mg PO TID [facility] Last Admin: 12/01/16 17:31 Dose: 1,600 mg Topiramate (Topamax) 50 mg PO BID [facility] Last Admin: 12/01/16 17:32 Dose: 50 mg Vitamin B Complex/Vit C/Folic Acid (Nephro-Ajay) 1 tab PO DAILY [facility] Last Admin: 12/01/16 08:47 Dose: 1 tab - Labs Labs: 11/29/16 10:00 11/29/16 09:55 PT 17.2 Seconds (9.8-13.1) H 11/19/16 06:00 INR 1.5 (0.9-1.2) H 11/19/16 06:00 APTT 55.8 Seconds (25.6-37.1) H 11/19/16 06:00 - Constitutional Appears: Well, No Acute Distress - Head Exam Head Exam: ATRAUMATIC, NORMAL INSPECTION, NORMOCEPHALIC - Eye Exam Eye Exam: EOMI - Respiratory Exam Respiratory Exam: NORMAL BREATHING PATTERN - GI/Abdominal Exam GI & Abdominal Exam: Soft. absent: Guarding, Rigid, Tenderness - Extremities Exam Additional comments: RLE: Dressing clean, dry and intact. No active drainage. Active Range of motion intact. - Neurological Exam Neurological Exam: Alert, Awake, Oriented x3 - Psychiatric Exam Psychiatric exam: Normal Affect, Normal Mood Assessment and Plan - Assessment and Plan (Free Text) Assessment: 46F s/p R BKA (10/01) w/revision and wash out (11/19, 11/29) - wet/dry dressing change PRN - c/w local wound care - c/w abx - Possible repeat washout and wound vac , 12/03 - Will hold Eliquis for surgery - NPO past mn Further Recs as per Dr. Easton Amado PGY1 <Raffy Mccormack - Last Filed: 12/03/16 14:51> Objective - Vital Signs/Intake and Output Vital Signs (last 24 hours): Temp Pulse Resp BP Pulse Ox 98.2 F 93 H 18 114/54 L 97 12/03/16 11:55 12/03/16 11:55 12/03/16 11:55 12/03/16 11:55 12/03/16 11:55 Intake and Output: 12/03/16 12/03/16 06:59 18:59 Intake Total 200 Balance 200 - Medications Medications: Current Medications Acetaminophen (Tylenol 325mg Tab) 650 mg PO Q4 PRN PRN Reason: Fever >100.4 F Last Admin: 11/21/16 00:44 Dose: 650 mg Acetaminophen (Tylenol 325mg Tab) 650 mg PO Q4 PRN PRN Reason: Pain, moderate (4-7) Last Admin: 09/16/16 22:34 Dose: 650 mg Albuterol Sulfate (Albuterol 0.083% Inhal Barbie (2.5 Mg/3 Ml) Ud) 2.5 mg INH RQ4 PRN PRN Reason: Shortness of Breath Albuterol/Ipratropium (Duoneb 3 Mg/0.5 Mg (3 Ml) Ud) 3 ml INH RQ4 PRN PRN Reason: Shortness of Breath Last Admin: 11/11/16 07:39 Dose: 3 ml Apixaban (Eliquis) 5 mg PO BID [facility] PRN Reason: Protocol Last Admin: 12/01/16 08:46 Dose: 5 mg Aspirin (Ecotrin) 81 mg PO DAILY [facility] Last Admin: 12/03/16 08:30 Dose: Not Given Atorvastatin Calcium (Lipitor) 40 mg PO DAILY [facility] Last Admin: 12/03/16 13:55 Dose: 40 mg Benzonatate (Tessalon Perles) 200 mg PO TID PRN PRN Reason: Cough Last Admin: 11/21/16 09:06 Dose: 200 mg Calcium Carbonate (Oscal) 500 mg PO BIDWM [facility] Last Admin: 12/03/16 08:31 Dose: Not Given Cinacalcet (Sensipar) 30 mg PO DAILY [facility] Last Admin: 12/03/16 13:59 Dose: 30 mg Collagenase (Santyl) 1 applic TOP DAILY [facility] Last Admin: 12/03/16 08:32 Dose: Not Given Diphenhydramine HCl (Benadryl) 25 mg PO Q6 PRN PRN Reason: Itching / Pruritus Last Admin: 11/12/16 08:34 Dose: 25 mg Docusate Sodium (Colace) 100 mg PO BID [facility] Last Admin: 12/03/16 08:23 Dose: Not Given Epoetin Tha (Procrit) 20,000 unit IV MWF [facility] Last Admin: 12/02/16 14:54 Dose: 20,000 unit Ergocalciferol (Drisdol 50,000 Intl Units Cap) 1 cap PO WED [facility] Last Admin: 11/27/16 08:32 Dose: 1 cap Fluconazole (Diflucan) 100 mg PO DAILY [facility] Last Admin: 12/03/16 13:55 Dose: 100 mg Gabapentin (Neurontin) 300 mg PO TID [facility] Last Admin: 12/03/16 13:04 Dose: 300 mg Hydrocortisone (Anusol-Hc) 1 applic [place] BID PRN PRN Reason: Inflammation Hydromorphone HCl (Dilaudid) 1 mg IVP Q2H PRN PRN Reason: Pain, severe (8-10) Last Admin: 12/03/16 14:10 Dose: 1 mg Meropenem 500 mg/ Sodium (Chloride) 100 mls @ 100 mls/hr IVPB DAILY@0100 [facility] Last Admin: 12/03/16 00:43 Dose: 100 mls/hr Gentamicin Sulfate/Sodium Chloride (Gentamicin 100mg/100ml Ns) 100 mg in 100 mls @ 100 mls/hr IVPB MWF [facility] Last Admin: 12/02/16 16:00 Dose: 100 mls/hr Tigecycline 25 mg/ Sodium (Chloride) 100 mls @ 100 mls/hr IVPB Q12 [facility] Last Admin: 12/03/16 10:00 Dose: Not Given Sodium Chloride (Sodium Chloride 0.45%) 500 mls @ 10 mls/hr IV .Q24H [facility] Last Admin: 12/03/16 14:02 Dose: Not Given Daptomycin 650 mg/ Sodium (Chloride) 100 mls @ 100 mls/hr IVPB MWF@1800 [facility] Stop: 12/16/16 18:59 Last Admin: 12/02/16 17:35 Dose: 100 mls/hr Sodium Chloride (Sodium Chloride 0.9%) 1,000 mls @ 25 mls/hr IV .Q24H [facility] Last Admin: 12/03/16 14:00 Dose: Not Given Insulin Detemir (Levemir) 6 units SC HS [facility] Last Admin: 12/02/16 21:36 Dose: 6 units Insulin Human Lispro (Humalog) 4 units SC AC [facility] Last Admin: 12/03/16 12:53 Dose: 4 units Lidocaine (Lidoderm) 1 ea TD DAILY [facility] Last Admin: 12/03/16 08:31 Dose: Not Given Nystatin (Nystop Topical Powder) 1 applic TOP BID [facility] Last Admin: 12/03/16 08:36 Dose: Not Given Ondansetron HCl (Zofran Inj) 4 mg IVP Q6 PRN PRN Reason: Nausea/Vomiting Last Admin: 09/19/16 10:26 Dose: 4 mg Pantoprazole Sodium (Protonix Ec Tab) 40 mg PO DAILY [facility] Last Admin: 12/03/16 13:57 Dose: 40 mg Sennosides (Senokot Tab) 25.8 mg PO HS [facility] Last Admin: 12/02/16 21:34 Dose: 25.8 mg Sevelamer HCl (Renagel) 1,600 mg PO TID [facility] Last Admin: 12/03/16 13:01 Dose: 1,600 mg Topiramate (Topamax) 50 mg PO BID [facility] Last Admin: 12/03/16 08:32 Dose: Not Given Vitamin B Complex/Vit C/Folic Acid (Nephro-Ajay) 1 tab PO DAILY [facility] Last Admin: 12/03/16 13:07 Dose: 1 tab - Labs Labs: 12/02/16 13:05 12/02/16 13:05 PT 15.3 Seconds (9.8-13.1) H 12/02/16 13:05 INR 1.4 (0.9-1.2) H 12/02/16 13:05 APTT 37.0 Seconds (25.6-37.1) 12/02/16 13:05 Assessment and Plan - Assessment and Plan (Free Text) Plan: Patient remains clinically stable. She shows no systemic signs of infection. Continue current treatment , broad antibiotic coverage, local wound care. Surgical plan is to proceed with another washout, debridement and likely VAC placement.
[2016-12-02] MEDS: Lidocaine 5% Patch TD SCH (08:24)
[2016-12-02] MEDS: Multivitamin Vitamin B Complex (Nephro-Vite) Tab PO SCH (08:34)
[2016-12-02] MEDS: Pantoprazole 40 mg EC Tab PO SCH (08:34)
[2016-12-02] MEDS: Insulin Lispro (humaLOG) 100 Units/ml Inj SC SCH ×3 (08:35→17:31)
--- NOTE | 2016-12-02 08:47 | CP.PCM.PN ---
Subjective - Date & Time of Evaluation Date of Evaluation: 12/02/16 Time of Evaluation: 08:45 - Subjective Subjective: No significant changes reported She is awake and appears to be comfortable She was receiving care medication And no new events reported Physical exam Chest no rhonchi Heart no rubs Abdomen soft Extremity no edema Impression and plan Status post another debridement of the right stump End stage renal disease patient about to start dialysis shortly as scheduled Sodium concentration 138 Potassium 2.0 I carbonates 34 Ultrafiltration 2500 mL as tolerated Continue monitoring Blood work appears to be unremarkable CBC acceptable and electrolytes and kidney function acceptable Objective - Vital Signs/Intake and Output Vital Signs (last 24 hours): Temp Pulse Resp BP Pulse Ox 97.6 F 100 H 18 118/62 98 12/02/16 08:29 12/02/16 08:29 12/02/16 08:29 12/02/16 08:29 12/02/16 08:29 - Medications Medications: Current Medications Acetaminophen (Tylenol 325mg Tab) 650 mg PO Q4 PRN PRN Reason: Fever >100.4 F Last Admin: 11/21/16 00:44 Dose: 650 mg Acetaminophen (Tylenol 325mg Tab) 650 mg PO Q4 PRN PRN Reason: Pain, moderate (4-7) Last Admin: 09/16/16 22:34 Dose: 650 mg Albuterol Sulfate (Albuterol 0.083% Inhal Brabie (2.5 Mg/3 Ml) Ud) 2.5 mg INH RQ4 PRN PRN Reason: Shortness of Breath Albuterol/Ipratropium (Duoneb 3 Mg/0.5 Mg (3 Ml) Ud) 3 ml INH RQ4 PRN PRN Reason: Shortness of Breath Last Admin: 11/11/16 07:39 Dose: 3 ml Apixaban (Eliquis) 5 mg PO BID JASPER PRN Reason: Protocol Last Admin: 12/01/16 08:46 Dose: 5 mg Aspirin (Ecotrin) 81 mg PO DAILY [facility] Last Admin: 12/02/16 08:34 Dose: 81 mg Atorvastatin Calcium (Lipitor) 40 mg PO DAILY [facility] Last Admin: 12/02/16 08:35 Dose: 40 mg Benzonatate (Tessalon Perles) 200 mg PO TID PRN PRN Reason: Cough Last Admin: 11/21/16 09:06 Dose: 200 mg Calcium Carbonate (Oscal) 500 mg PO BIDWM [facility] Last Admin: 12/02/16 08:34 Dose: 500 mg Cinacalcet (Sensipar) 30 mg PO DAILY [facility] Last Admin: 12/02/16 08:34 Dose: 30 mg Collagenase (Santyl) 1 applic TOP DAILY [facility] Last Admin: 12/01/16 08:52 Dose: 1 applic Diphenhydramine HCl (Benadryl) 25 mg PO Q6 PRN PRN Reason: Itching / Pruritus Last Admin: 11/12/16 08:34 Dose: 25 mg Docusate Sodium (Colace) 100 mg PO BID [facility] Last Admin: 12/02/16 08:31 Dose: 100 mg Epoetin Tha (Procrit) 20,000 unit IV [facility] Last Admin: 11/29/16 14:46 Dose: 20,000 unit Ergocalciferol (Drisdol 50,000 Intl Units Cap) 1 cap PO WED [facility] Last Admin: 11/27/16 08:32 Dose: 1 cap Fluconazole (Diflucan) 100 mg PO DAILY [facility] Last Admin: 12/02/16 08:35 Dose: 100 mg Gabapentin (Neurontin) 300 mg PO TID [facility] Last Admin: 12/02/16 08:33 Dose: 300 mg Hydrocortisone (Anusol-Hc) 1 applic [place] BID PRN PRN Reason: Inflammation Hydromorphone HCl (Dilaudid) 1 mg IVP Q2H PRN PRN Reason: Pain, severe (8-10) Last Admin: 12/02/16 08:27 Dose: 1 mg Meropenem 500 mg/ Sodium (Chloride) 100 mls @ 100 mls/hr IVPB DAILY@0100 [facility] Last Admin: 12/02/16 00:35 Dose: 100 mls/hr Gentamicin Sulfate/Sodium Chloride (Gentamicin 100mg/100ml Ns) 100 mg in 100 mls @ 100 mls/hr IVPB MWF [facility] Last Admin: 11/29/16 08:55 Dose: 100 mls/hr Tigecycline 25 mg/ Sodium (Chloride) 100 mls @ 100 mls/hr IVPB Q12 [facility] Last Admin: 12/01/16 20:56 Dose: 100 mls/hr Sodium Chloride (Sodium Chloride 0.45%) 500 mls @ 10 mls/hr IV .Q24H [facility] Last Admin: 12/01/16 18:45 Dose: 10 mls/hr Daptomycin 650 mg/ Sodium (Chloride) 100 mls @ 100 mls/hr IVPB MWF@1800 [facility] Stop: 12/16/16 18:59 Last Admin: 11/29/16 19:18 Dose: 100 mls/hr Sodium Chloride (Sodium Chloride 0.9%) 1,000 mls @ 25 mls/hr IV .Q24H [facility] Last Admin: 12/01/16 17:37 Dose: Not Given Insulin Detemir (Levemir) 6 units SC HS [facility] Last Admin: 12/01/16 22:28 Dose: 6 units Insulin Human Lispro (Humalog) 4 units SC AC [facility] Last Admin: 12/02/16 08:35 Dose: 4 units Lidocaine (Lidoderm) 1 ea TD DAILY [facility] Last Admin: 12/02/16 08:24 Dose: 1 ea Nystatin (Nystop Topical Powder) 1 applic TOP BID [facility] Last Admin: 12/02/16 08:36 Dose: 1 applic Ondansetron HCl (Zofran Inj) 4 mg IVP Q6 PRN PRN Reason: Nausea/Vomiting Last Admin: 09/19/16 10:26 Dose: 4 mg Pantoprazole Sodium (Protonix Ec Tab) 40 mg PO DAILY [facility] Last Admin: 12/02/16 08:34 Dose: 40 mg Sennosides (Senokot Tab) 25.8 mg PO HS [facility] Last Admin: 12/01/16 22:17 Dose: 25.8 mg Sevelamer HCl (Renagel) 1,600 mg PO TID [facility] Last Admin: 12/02/16 08:33 Dose: 1,600 mg Topiramate (Topamax) 50 mg PO BID [facility] Last Admin: 12/02/16 08:34 Dose: 50 mg Vitamin B Complex/Vit C/Folic Acid (Nephro-Ajay) 1 tab PO DAILY [facility] Last Admin: 12/02/16 08:34 Dose: 1 tab - Labs Labs: 11/29/16 10:00 11/29/16 09:55 PT 17.2 Seconds (9.8-13.1) H 11/19/16 06:00 INR 1.5 (0.9-1.2) H 11/19/16 06:00 APTT 55.8 Seconds (25.6-37.1) H 11/19/16 06:00 Assessment and Plan (1) ESRD (end stage renal disease) Status: Chronic (2) Cellulitis of leg Status: Chronic
[2016-12-02] MEDS: Santyl Collagenase OINTMENT TOP SCH (11:46)
[2016-12-02 13:21] LABS: BASO # 0.1 K/uL (0.0-0.2); BASO % 0.8 % (0.0-2.0); EOS # 0.6 K/uL (0.0-0.7); EOS % 8.1 % (0.0-4.0); HEMATOCRIT 32.4 % (34.0-47.0); LYMPH # 1.3 K/uL (1.0-4.3); LYMPH % 16.3 % (20.0-40.0); MEAN CELL VOLUME 99.7 fl (81.0-99.0); MEAN CORPUSCULAR HEMOGLOBIN 31.8 pg (27.0-31.0); MEAN CORPUSCULAR HGB CONC 31.9 g/dL (33.0-37.0); MEAN PLATELET VOLUME 9.1 fl (7.2-11.7); MONO # 0.7 K/uL (0.0-0.8); MONO % 8.9 % (0.0-10.0); NEUT # 5.1 K/uL (1.8-7.0); NEUT % 65.9 % (50.0-75.0); RED CELL DISTRIBUTION WIDTH 22.1 % (11.5-14.5); WHITE BLOOD COUNT 7.7 K/uL (4.8-10.8)
[2016-12-02 13:31] LABS: ALB/GLOB RATIO 0.7 (1.0-2.1); BILIRUBIN,TOTAL 0.5 mg/dl (0.2-1.3); CALCIUM 8.6 mg/dL (8.4-10.2); POTASSIUM 3.4 MMOL/L (3.6-5.0); TOTAL PROTEIN 7.8 G/DL (6.3-8.2)
[2016-12-02] MEDS: Epoetin Alfa 20000 UNIT/ML Inj IV SCH (14:54)
[2016-12-02] MEDS: SODIUM CHLORIDE 0.9% IVPB SCH ×2 (15:00→21:02)
[2016-12-02] MEDS: TIGECYCLINE IVPB SCH ×2 (15:00→21:02)
[2016-12-02] MEDS: Gentamicin 100mg/100ml NS 100 MG/100 ML BAG IVPB SCH (16:00)
[2016-12-02] MEDS: Sodium Chloride 0.9% 1,000 ML IV SCH (16:47)
--- NOTE | 2016-12-02 17:45 | CP.PCM.PN ---
Subjective - Date & Time of Evaluation Date of Evaluation: 12/02/16 Time of Evaluation: 17:43 - Subjective Subjective: Patient is comfortable. No fevers or dyspnea. Occas dry cough. She had hemodialysis today. Note by Dr. Guadarrama appreciated. Dr. Mccormack plans for irrigation of BK wound in OR tomorrow, debridement of right knee eschar, and application of wound vac. We may give a dose of Eliquis this evening, but otherwise place this on hold. She continues on aspirin. IV antibiotics (meropenem, tigacycline, daptomycin, and gentamicin) and po fluconazole continue. DM is controll per regimen by Dr. Ambrose. No seizures on Topamax. Objective - Vital Signs/Intake and Output Vital Signs (last 24 hours): Temp Pulse Resp BP Pulse Ox 97.3 F L 104 H 17 91/64 L 97 12/02/16 15:51 12/02/16 15:51 12/02/16 15:51 12/02/16 15:51 12/02/16 15:51 - Medications Medications: Current Medications Acetaminophen (Tylenol 325mg Tab) 650 mg PO Q4 PRN PRN Reason: Fever >100.4 F Last Admin: 11/21/16 00:44 Dose: 650 mg Acetaminophen (Tylenol 325mg Tab) 650 mg PO Q4 PRN PRN Reason: Pain, moderate (4-7) Last Admin: 09/16/16 22:34 Dose: 650 mg Albuterol Sulfate (Albuterol 0.083% Inhal Barbie (2.5 Mg/3 Ml) Ud) 2.5 mg INH RQ4 PRN PRN Reason: Shortness of Breath Albuterol/Ipratropium (Duoneb 3 Mg/0.5 Mg (3 Ml) Ud) 3 ml INH RQ4 PRN PRN Reason: Shortness of Breath Last Admin: 11/11/16 07:39 Dose: 3 ml Apixaban (Eliquis) 5 mg PO BID JASPER PRN Reason: Protocol Last Admin: 12/01/16 08:46 Dose: 5 mg Apixaban (Eliquis) 5 mg PO ONCE ONE PRN Reason: Protocol Stop: 12/03/16 17:43 Aspirin (Ecotrin) 81 mg PO DAILY [facility] Last Admin: 12/02/16 08:34 Dose: 81 mg Atorvastatin Calcium (Lipitor) 40 mg PO DAILY [facility] Last Admin: 12/02/16 08:35 Dose: 40 mg Benzonatate (Tessalon Perles) 200 mg PO TID PRN PRN Reason: Cough Last Admin: 11/21/16 09:06 Dose: 200 mg Calcium Carbonate (Oscal) 500 mg PO BIDWM [facility] Last Admin: 12/02/16 16:50 Dose: 500 mg Cinacalcet (Sensipar) 30 mg PO DAILY [facility] Last Admin: 12/02/16 08:34 Dose: 30 mg Collagenase (Santyl) 1 applic TOP DAILY [facility] Last Admin: 12/02/16 11:46 Dose: 1 applic Diphenhydramine HCl (Benadryl) 25 mg PO Q6 PRN PRN Reason: Itching / Pruritus Last Admin: 11/12/16 08:34 Dose: 25 mg Docusate Sodium (Colace) 100 mg PO BID [facility] Last Admin: 12/02/16 16:41 Dose: 100 mg Epoetin Tha (Procrit) [facility] Last Admin: 12/02/16 14:54 Dose: 20,000 unit Ergocalciferol (Drisdol 50,000 Intl Units Cap) 1 cap PO WED [facility] Last Admin: 11/27/16 08:32 Dose: 1 cap Fluconazole (Diflucan) 100 mg PO DAILY [facility] Last Admin: 12/02/16 08:35 Dose: 100 mg Gabapentin (Neurontin) 300 mg PO TID [facility] Last Admin: 12/02/16 16:50 Dose: 300 mg Hydrocortisone (Anusol-Hc) 1 applic [place] BID PRN PRN Reason: Inflammation Hydromorphone HCl (Dilaudid) 1 mg IVP Q2H PRN PRN Reason: Pain, severe (8-10) Last Admin: 12/02/16 16:38 Dose: 1 mg Meropenem 500 mg/ Sodium (Chloride) 100 mls @ 100 mls/hr IVPB DAILY@0100 [facility] Last Admin: 12/02/16 00:35 Dose: 100 mls/hr Gentamicin Sulfate/Sodium Chloride (Gentamicin 100mg/100ml Ns) 100 mg in 100 mls @ 100 mls/hr IVPB MWF [facility] Last Admin: 12/02/16 16:00 Dose: 100 mls/hr Tigecycline 25 mg/ Sodium (Chloride) 100 mls @ 100 mls/hr IVPB Q12 [facility] Last Admin: 12/02/16 15:00 Dose: 100 mls/hr Sodium Chloride (Sodium Chloride 0.45%) 500 mls @ 10 mls/hr IV .Q24H [facility] Last Admin: 12/02/16 16:48 Dose: Not Given Daptomycin 650 mg/ Sodium (Chloride) 100 mls @ 100 mls/hr IVPB MWF@1800 [facility] Stop: 12/16/16 18:59 Last Admin: 12/02/16 17:35 Dose: 100 mls/hr Sodium Chloride (Sodium Chloride 0.9%) 1,000 mls @ 25 mls/hr IV .Q24H [facility] Last Admin: 12/02/16 16:47 Dose: Not Given Insulin Detemir (Levemir) 6 units SC HS [facility] Last Admin: 12/01/16 22:28 Dose: 6 units Insulin Human Lispro (Humalog) 4 units SC AC [facility] Last Admin: 12/02/16 17:31 Dose: 4 units Lidocaine (Lidoderm) 1 ea TD DAILY [facility] Last Admin: 12/02/16 08:24 Dose: 1 ea Nystatin (Nystop Topical Powder) 1 applic TOP BID [facility] Last Admin: 12/02/16 16:51 Dose: 1 applic Ondansetron HCl (Zofran Inj) 4 mg IVP Q6 PRN PRN Reason: Nausea/Vomiting Last Admin: 09/19/16 10:26 Dose: 4 mg Pantoprazole Sodium (Protonix Ec Tab) 40 mg PO DAILY [facility] Last Admin: 12/02/16 08:34 Dose: 40 mg Sennosides (Senokot Tab) 25.8 mg PO HS [facility] Last Admin: 12/01/16 22:17 Dose: 25.8 mg Sevelamer HCl (Renagel) 1,600 mg PO TID [facility] Last Admin: 12/02/16 16:50 Dose: 1,600 mg Topiramate (Topamax) 50 mg PO BID [facility] Last Admin: 12/02/16 16:50 Dose: 50 mg Vitamin B Complex/Vit C/Folic Acid (Nephro-Ajay) 1 tab PO DAILY [facility] Last Admin: 12/02/16 08:34 Dose: 1 tab - Labs Labs: 12/02/16 13:05 12/02/16 13:05 PT 15.3 Seconds (9.8-13.1) H 12/02/16 13:05 INR 1.4 (0.9-1.2) H 12/02/16 13:05 APTT 37.0 Seconds (25.6-37.1) 12/02/16 13:05 AST = 63 (stable) ALT = 29 Alk phos = 199 - Constitutional Appears: No Acute Distress - Head Exam Head Exam: NORMAL INSPECTION - Eye Exam Eye Exam: Normal appearance - ENT Exam ENT Exam: Mucous Membranes Moist - Neck Exam Neck Exam: Normal Inspection Additional comments: Right subclavian Permacath intact. - Respiratory Exam Respiratory Exam: Clear to Ausculation Bilateral, NORMAL BREATHING PATTERN - Cardiovascular Exam Cardiovascular Exam: REGULAR RHYTHM, +S1, +S2 - GI/Abdominal Exam GI & Abdominal Exam: Soft - Exam Additional comments: R BK dressing is dry and intact. R knee eschar dressing intact. L femoral vein PICC line intact. All other extremities as before. - Back Exam Back Exam: NORMAL INSPECTION - Neurological Exam Neurological Exam: Alert, Oriented x3 - Psychiatric Exam Psychiatric exam: Normal Affect, Normal Mood - Skin Skin Exam: Normal Color, Warm Assessment and Plan (1) Status post below knee amputation of right lower extremity Assessment & Plan: Making progress in wound healing. Tomorrow she will have what is hoped will be final debridement and then placement of wound vac. Will continue current antibiotics. She may have one dose of Eliquis tonight as per Dr. Mccormack, and then it will be held until he says ok. Status: Acute (2) ESRD (end stage renal disease) on dialysis Status: Chronic (3) DM type 2 (diabetes mellitus, type 2) Status: Chronic (4) Coagulopathy Status: Chronic (5) Peripheral arterial occlusive disease Status: Chronic
--- NOTE | 2016-12-02 18:44 | PN ---
LOCATION: [facility]. SUBJECTIVE: This is a 46-year-old female with recent uncontrolled type 2 insulin-requiring diabetes now being followed closely for metabolic management. Her glycemic levels are much improved at this time especially postoperatively and the latest glucose values have ranged from 97 to 102 mg/dL. Her latest chemistries shows a BUN of 31, sodium 139, potassium 3.4, chloride 99, CO2 of 29, glucose 97, creatinine 3.6, so at this time we will continue the same basal and bolus insulin regimen as ordered with Levemir given as 6 units subQ at bedtime daily and Humalog given as 4 units subQ t.i.d. before meals as given. We will titrate incremental as indicated to optimize metabolic control. We will follow with you. Irene Ambrose MD
[2016-12-02] MEDS: Insulin Detemir 100 Units/ml Inj SC SCH (21:36)
--- NOTE | 2016-12-02 22:22 | CP.PCM.PN ---
Subjective - Date & Time of Evaluation Date of Evaluation: 12/02/16 Time of Evaluation: 20:35 - Subjective Subjective: Patient is stable clinically. She wass having a Hemodialysis today for her ESRD. Patient DM is reported by Dr Ambrose to be controled. Her BKA wound will have more care and debridement in order to avoid any complications of her infection that might aggravate her condition. There is no Seizures. She is on Po Topamax. She is interactive. Objective - Vital Signs/Intake and Output Vital Signs (last 24 hours): Temp Pulse Resp BP Pulse Ox 97.3 F L 104 H 17 91/64 L 97 12/02/16 15:51 12/02/16 15:51 12/02/16 15:51 12/02/16 15:51 12/02/16 15:51 - Medications Medications: Current Medications Acetaminophen (Tylenol 325mg Tab) 650 mg PO Q4 PRN PRN Reason: Fever >100.4 F Last Admin: 11/21/16 00:44 Dose: 650 mg Acetaminophen (Tylenol 325mg Tab) 650 mg PO Q4 PRN PRN Reason: Pain, moderate (4-7) Last Admin: 09/16/16 22:34 Dose: 650 mg Albuterol Sulfate (Albuterol 0.083% Inhal Barbie (2.5 Mg/3 Ml) Ud) 2.5 mg INH RQ4 PRN PRN Reason: Shortness of Breath Albuterol/Ipratropium (Duoneb 3 Mg/0.5 Mg (3 Ml) Ud) 3 ml INH RQ4 PRN PRN Reason: Shortness of Breath Last Admin: 11/11/16 07:39 Dose: 3 ml Apixaban (Eliquis) 5 mg PO BID JASPER PRN Reason: Protocol Last Admin: 12/01/16 08:46 Dose: 5 mg Aspirin (Ecotrin) 81 mg PO DAILY [facility] Last Admin: 12/02/16 08:34 Dose: 81 mg Atorvastatin Calcium (Lipitor) 40 mg PO DAILY [facility] Last Admin: 12/02/16 08:35 Dose: 40 mg Benzonatate (Tessalon Perles) 200 mg PO TID PRN PRN Reason: Cough Last Admin: 11/21/16 09:06 Dose: 200 mg Calcium Carbonate (Oscal) 500 mg PO BIDWM [facility] Last Admin: 12/02/16 16:50 Dose: 500 mg Cinacalcet (Sensipar) 30 mg PO DAILY [facility] Last Admin: 12/02/16 08:34 Dose: 30 mg Collagenase (Santyl) 1 applic TOP DAILY [facility] Last Admin: 12/02/16 11:46 Dose: 1 applic Diphenhydramine HCl (Benadryl) 25 mg PO Q6 PRN PRN Reason: Itching / Pruritus Last Admin: 11/12/16 08:34 Dose: 25 mg Docusate Sodium (Colace) 100 mg PO BID [facility] Last Admin: 12/02/16 16:41 Dose: 100 mg Epoetin Tha (Procrit) 20,000 unit IV MWF [facility] Last Admin: 12/02/16 14:54 Dose: 20,000 unit Ergocalciferol (Drisdol 50,000 Intl Units Cap) 1 cap PO WED [facility] Last Admin: 11/27/16 08:32 Dose: 1 cap Fluconazole (Diflucan) 100 mg PO DAILY [facility] Last Admin: 12/02/16 08:35 Dose: 100 mg Gabapentin (Neurontin) 300 mg PO TID [facility] Last Admin: 12/02/16 16:50 Dose: 300 mg Hydrocortisone (Anusol-Hc) 1 applic [place] BID PRN PRN Reason: Inflammation Hydromorphone HCl (Dilaudid) 1 mg IVP Q2H PRN PRN Reason: Pain, severe (8-10) Last Admin: 12/02/16 20:57 Dose: 1 mg Meropenem 500 mg/ Sodium (Chloride) 100 mls @ 100 mls/hr IVPB DAILY@0100 [facility] Last Admin: 12/02/16 00:35 Dose: 100 mls/hr Gentamicin Sulfate/Sodium Chloride (Gentamicin 100mg/100ml Ns) 100 mg in 100 mls @ 100 mls/hr IVPB MWF [facility] Last Admin: 12/02/16 16:00 Dose: 100 mls/hr Tigecycline 25 mg/ Sodium (Chloride) 100 mls @ 100 mls/hr IVPB Q12 [facility] Last Admin: 12/02/16 21:02 Dose: 100 mls/hr Sodium Chloride (Sodium Chloride 0.45%) 500 mls @ 10 mls/hr IV .Q24H [facility] Last Admin: 12/02/16 16:48 Dose: Not Given Daptomycin 650 mg/ Sodium (Chloride) 100 mls @ 100 mls/hr IVPB MWF@1800 [facility] Stop: 12/16/16 18:59 Last Admin: 12/02/16 17:35 Dose: 100 mls/hr Sodium Chloride (Sodium Chloride 0.9%) 1,000 mls @ 25 mls/hr IV .Q24H [facility] Last Admin: 12/02/16 16:47 Dose: Not Given Insulin Detemir (Levemir) 6 units SC HS [facility] Last Admin: 12/02/16 21:36 Dose: 6 units Insulin Human Lispro (Humalog) 4 units SC AC [facility] Last Admin: 12/02/16 17:31 Dose: 4 units Lidocaine (Lidoderm) 1 ea TD DAILY [facility] Last Admin: 12/02/16 08:24 Dose: 1 ea Nystatin (Nystop Topical Powder) 1 applic TOP BID [facility] Last Admin: 12/02/16 16:51 Dose: 1 applic Ondansetron HCl (Zofran Inj) 4 mg IVP Q6 PRN PRN Reason: Nausea/Vomiting Last Admin: 09/19/16 10:26 Dose: 4 mg Pantoprazole Sodium (Protonix Ec Tab) 40 mg PO DAILY [facility] Last Admin: 12/02/16 08:34 Dose: 40 mg Sennosides (Senokot Tab) 25.8 mg PO HS [facility] Last Admin: 12/02/16 21:34 Dose: 25.8 mg Sevelamer HCl (Renagel) 1,600 mg PO TID [facility] Last Admin: 12/02/16 16:50 Dose: 1,600 mg Topiramate (Topamax) 50 mg PO BID [facility] Last Admin: 12/02/16 16:50 Dose: 50 mg Vitamin B Complex/Vit C/Folic Acid (Nephro-Ajay) 1 tab PO DAILY [facility] Last Admin: 12/02/16 08:34 Dose: 1 tab - Labs Labs: 12/02/16 13:05 12/02/16 13:05 PT 15.3 Seconds (9.8-13.1) H 12/02/16 13:05 INR 1.4 (0.9-1.2) H 12/02/16 13:05 APTT 37.0 Seconds (25.6-37.1) 12/02/16 13:05 Assessment and Plan (1) Diabetes Status: Chronic (2) ESRD (end stage renal disease) Status: Chronic (3) Cellulitis of leg Status: Chronic (4) Hyperlipidemia Status: Chronic (5) Back pain Status: Acute (6) Bacteremia due to Gram-negative bacteria Status: Acute (7) Diabetes mellitus type 2 with peripheral artery disease Status: Chronic (8) PVD (peripheral vascular disease) Status: Chronic (9) Osteomyelitis of right leg Status: Acute
[2016-12-03] MEDS: Meropenem 500 MG in Sodium Chloride 0.9% 100 ML IVPB SCH (00:43)
[2016-12-03] MEDS: Insulin Lispro (humaLOG) 100 Units/ml Inj SC SCH ×3 (08:30→17:32)
[2016-12-03] MEDS: Multivitamin Vitamin B Complex (Nephro-Vite) Tab PO SCH ×2 (08:31→13:07)
[2016-12-03] MEDS: Pantoprazole 40 mg EC Tab PO SCH ×2 (08:31→13:57)
[2016-12-03] MEDS: Lidocaine 5% Patch TD SCH ×2 (08:31→17:31)
[2016-12-03] MEDS: Santyl Collagenase OINTMENT TOP SCH (08:32)
[2016-12-03] MEDS ORDERED: Bacitracin Ointment 30 GM TUBE ONE (08:49)
[2016-12-03] MEDS ORDERED: Sodium Chloride 0.9% 500 ML IV ONE (09:20)
[2016-12-03] MEDS ORDERED: Midazolam 2 MG/2 ML VIAL ONE (09:21)
[2016-12-03] MEDS ORDERED: Propofol 10 mg/ml Inj (20 ML) ONE (09:21)
[2016-12-03] MEDS ORDERED: Sodium Chloride 0.9% 100 ML IV ONE (09:35)
[2016-12-03] MEDS ORDERED: Phenylephrine 10 mg/ml Inj ONE (09:42)
[2016-12-03] MEDS: SODIUM CHLORIDE 0.9% IVPB SCH ×2 (10:00→21:49)
[2016-12-03] MEDS: TIGECYCLINE IVPB SCH ×2 (10:00→21:49)
[2016-12-03] MEDS ORDERED: Liquid Adhesive TOP ONE (10:01)
[2016-12-03] MEDS ORDERED: Bacitracin OINT 15GM TOP ONE (10:10)
--- NOTE | 2016-12-03 10:33 | PCM.SURG1 ---
<Sb Groves - Last Filed: 12/03/16 10:28> Surgeon's Initial Post Op Note - Surgeon's Notes Surgeon: Dr. Mccormack Housing Development Specialist: sb Groves PGY2 Type of Anesthesia: General LMA Pre-Operative Diagnosis: BKA R wound infection Operative Findings: same , necrotic tissue. Post-Operative Diagnosis: same Operation Performed: Wound debridedment and pulse lavage, wound vac placement Specimen/Specimens Removed: R knee skin. Estimated Blood Loss: EBL {In ML}: 10 Blood Products Given: N/A Drains Used: Wound Vac Post-Op Condition: Good Date of Surgery/Procedure: 12/03/16 Time of Surgery/Procedure: 10:33 <Raffy Mccormack - Last Filed: 12/03/16 14:48> Surgeon's Initial Post Op Note - Surgeon's Notes Surgeon: Dr. Magan Mccormack MD Housing Development Specialist: Sb Groves PGY2 Pre-Operative Diagnosis: Right BKA stump infection Operative Findings: right BKA wound is granulating well with no krystal pus, purulence or significant amount of necrotic tissue. Right patellar wound debrided with removal of fibrinous eschar Operation Performed: Right BKA and patellar wounds debridement and pulse lavage irrigation. Right BKA stump VAC placement. Specimen/Specimens Removed: Right patellar eschar
[2016-12-03] MEDS ORDERED: HYDROmorphone 0.5 mg/0.5 ml ISec ONE (10:45)
[2016-12-03] MEDS ORDERED: HYDROmorphone 0.5 mg/0.5 ml ISec IVP PRN (11:01)
[2016-12-03] MEDS: Sodium Chloride 0.9% 1,000 ML IV SCH (14:00)
--- NOTE | 2016-12-03 14:50 | CP.PCM.PN ---
Subjective - Date & Time of Evaluation Date of Evaluation: 12/03/16 Time of Evaluation: 14:46 - Subjective Subjective: Notes by Easton Vora and Germain sundar. Patient is back from OR after right BK wound debridement and pulse lavage and application of wound vac. She also underwent unroofing of right patellar eschar. No krystal pus noted. Patient is now comfortable. As per discussion with Dr. Lemon, we will continue the same 4 iv antibiotics (meropenem, tigacycline, daptomycin, and gentamicin) and po fluconazole. Await results of today's wound cultures. Glucoses well controlled. No fevers or dyspnea or cough. Objective - Vital Signs/Intake and Output Vital Signs (last 24 hours): Temp Pulse Resp BP Pulse Ox 98.2 F 93 H 18 114/54 L 97 12/03/16 11:55 12/03/16 11:55 12/03/16 11:55 12/03/16 11:55 12/03/16 11:55 Intake and Output: 12/03/16 12/03/16 06:59 18:59 Intake Total 200 Balance 200 - Medications Medications: Current Medications Acetaminophen (Tylenol 325mg Tab) 650 mg PO Q4 PRN PRN Reason: Fever >100.4 F Last Admin: 11/21/16 00:44 Dose: 650 mg Acetaminophen (Tylenol 325mg Tab) 650 mg PO Q4 PRN PRN Reason: Pain, moderate (4-7) Last Admin: 09/16/16 22:34 Dose: 650 mg Albuterol Sulfate (Albuterol 0.083% Inhal Barbie (2.5 Mg/3 Ml) Ud) 2.5 mg INH RQ4 PRN PRN Reason: Shortness of Breath Albuterol/Ipratropium (Duoneb 3 Mg/0.5 Mg (3 Ml) Ud) 3 ml INH RQ4 PRN PRN Reason: Shortness of Breath Last Admin: 11/11/16 07:39 Dose: 3 ml Apixaban (Eliquis) 5 mg PO BID [facility] PRN Reason: Protocol Last Admin: 12/01/16 08:46 Dose: 5 mg Aspirin (Ecotrin) 81 mg PO DAILY [facility] Last Admin: 12/03/16 08:30 Dose: Not Given Atorvastatin Calcium (Lipitor) 40 mg PO DAILY [facility] Last Admin: 12/03/16 13:55 Dose: 40 mg Benzonatate (Tessalon Perles) 200 mg PO TID PRN PRN Reason: Cough Last Admin: 11/21/16 09:06 Dose: 200 mg Calcium Carbonate (Oscal) 500 mg PO BIDWM [facility] Last Admin: 12/03/16 08:31 Dose: Not Given Cinacalcet (Sensipar) 30 mg PO DAILY [facility] Last Admin: 12/03/16 13:59 Dose: 30 mg Collagenase (Santyl) 1 applic TOP DAILY [facility] Last Admin: 12/03/16 08:32 Dose: Not Given Diphenhydramine HCl (Benadryl) 25 mg PO Q6 PRN PRN Reason: Itching / Pruritus Last Admin: 11/12/16 08:34 Dose: 25 mg Docusate Sodium (Colace) 100 mg PO BID [facility] Last Admin: 12/03/16 08:23 Dose: Not Given Epoetin Tha (Procrit) 20,000 unit IV [facility] Last Admin: 12/02/16 14:54 Dose: 20,000 unit Ergocalciferol (Drisdol 50,000 Intl Units Cap) 1 cap PO WED [facility] Last Admin: 11/27/16 08:32 Dose: 1 cap Fluconazole (Diflucan) 100 mg PO DAILY [facility] Last Admin: 12/03/16 13:55 Dose: 100 mg Gabapentin (Neurontin) 300 mg PO TID [facility] Last Admin: 12/03/16 13:04 Dose: 300 mg Hydrocortisone (Anusol-Hc) [address] BID PRN PRN Reason: Inflammation Hydromorphone HCl (Dilaudid) 1 mg IVP Q2H PRN PRN Reason: Pain, severe (8-10) Last Admin: 12/03/16 14:10 Dose: 1 mg Meropenem 500 mg/ Sodium (Chloride) 100 mls @ 100 mls/hr IVPB DAILY@0100 [facility] Last Admin: 12/03/16 00:43 Dose: 100 mls/hr Gentamicin Sulfate/Sodium Chloride (Gentamicin 100mg/100ml Ns) 100 mg in 100 mls @ 100 mls/hr IVPB MWF [facility] Last Admin: 12/02/16 16:00 Dose: 100 mls/hr Tigecycline 25 mg/ Sodium (Chloride) 100 mls @ 100 mls/hr IVPB Q12 [facility] Last Admin: 12/03/16 10:00 Dose: Not Given Sodium Chloride (Sodium Chloride 0.45%) 500 mls @ 10 mls/hr IV .Q24H [facility] Last Admin: 12/03/16 14:02 Dose: Not Given Daptomycin 650 mg/ Sodium (Chloride) 100 mls @ 100 mls/hr IVPB MWF@1800 [facility] Stop: 12/16/16 18:59 Last Admin: 12/02/16 17:35 Dose: 100 mls/hr Sodium Chloride (Sodium Chloride 0.9%) 1,000 mls @ 25 mls/hr IV .Q24H [facility] Last Admin: 12/03/16 14:00 Dose: Not Given Insulin Detemir (Levemir) 6 units SC HS [facility] Last Admin: 12/02/16 21:36 Dose: 6 units Insulin Human Lispro (Humalog) 4 units SC AC [facility] Last Admin: 12/03/16 12:53 Dose: 4 units Lidocaine (Lidoderm) 1 ea TD DAILY [facility] Last Admin: 12/03/16 08:31 Dose: Not Given Nystatin (Nystop Topical Powder) 1 applic TOP BID [facility] Last Admin: 12/03/16 08:36 Dose: Not Given Ondansetron HCl (Zofran Inj) 4 mg IVP Q6 PRN PRN Reason: Nausea/Vomiting Last Admin: 09/19/16 10:26 Dose: 4 mg Pantoprazole Sodium (Protonix Ec Tab) 40 mg PO DAILY [facility] Last Admin: 12/03/16 13:57 Dose: 40 mg Sennosides (Senokot Tab) 25.8 mg PO [facility] Last Admin: 12/02/16 21:34 Dose: 25.8 mg Sevelamer HCl (Renagel) 1,600 mg PO TID [facility] Last Admin: 12/03/16 13:01 Dose: 1,600 mg Topiramate (Topamax) 50 mg PO BID [facility] Last Admin: 12/03/16 08:32 Dose: Not Given Vitamin B Complex/Vit C/Folic Acid (Nephro-Ajay) 1 tab PO DAILY [facility] Last Admin: 12/03/16 13:07 Dose: 1 tab - Labs Labs: 12/02/16 13:05 12/02/16 13:05 PT 15.3 Seconds (9.8-13.1) H 12/02/16 13:05 INR 1.4 (0.9-1.2) H 12/02/16 13:05 APTT 37.0 Seconds (25.6-37.1) 12/02/16 13:05 - Constitutional Appears: No Acute Distress - Head Exam Head Exam: NORMAL INSPECTION - Eye Exam Eye Exam: Normal appearance - ENT Exam ENT Exam: Mucous Membranes Moist - Neck Exam Neck Exam: Normal Inspection Additional comments: R subclavian Permacath intact. - Respiratory Exam Respiratory Exam: Clear to Ausculation Bilateral, NORMAL BREATHING PATTERN - Cardiovascular Exam Cardiovascular Exam: REGULAR RHYTHM, +S1, +S2 - GI/Abdominal Exam GI & Abdominal Exam: Soft - Extremities Exam Additional comments: R BK wound a dressing intact and dry with wound vac at 125mm Hg negative pressure with no leaks. R patella dressing covered by DEMIAN bandage. L femoral PICC line intact Other extremities as before. - Back Exam Back Exam: NORMAL INSPECTION - Neurological Exam Neurological Exam: Alert, Oriented x3 - Psychiatric Exam Psychiatric exam: Normal Affect, Normal Mood - Skin Skin Exam: Dry, Normal Color, Warm Assessment and Plan (1) Status post below knee amputation of right lower extremity Assessment & Plan: We are hopeful that healing will occur so as to avoid further amputation. See subjective for details. Status: Acute (2) ESRD (end stage renal disease) on dialysis Status: Chronic (3) DM type 2 (diabetes mellitus, type 2) Assessment & Plan: To continue all pre-operative insulin orders. Status: Chronic (4) Coagulopathy Assessment & Plan: No excessive bleeding. Will resume Eliquis 5 mg bid and continue aspirin 81mg daily. Status: Chronic (5) Peripheral arterial occlusive disease Status: Chronic
[2016-12-03] MEDS: Insulin Detemir 100 Units/ml Inj SC SCH (22:47)
--- NOTE | 2016-12-03 23:54 | CP.PCM.PN ---
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 It included Wound debridement and pulse lavage, wound vac placement. Wound cultures are pending. The same Regime of Antibiotics is continued. She still complains of Pain in the Right BKA area and surgery is reporting a clean wound after debridement. There is no Seizures on Po Topamax 50 mg BID. She is receiving H.D on M,W,F for her ESRD. Her DM is adjusted by Dr Ambrose of Endocrinology. Patient is interactive. Objective - Vital Signs/Intake and Output Vital Signs (last 24 hours): Temp Pulse Resp BP Pulse Ox 98.0 F 100 H 17 97/53 L 96 12/03/16 16:03 12/03/16 16:03 12/03/16 16:03 12/03/16 16:03 12/03/16 16:03 Intake and Output: 12/03/16 12/04/16 18:59 06:59 Intake Total 200 Balance 200 - Medications Medications: Current Medications Acetaminophen (Tylenol 325mg Tab) 650 mg PO Q4 PRN PRN Reason: Fever >100.4 F Last Admin: 11/21/16 00:44 Dose: 650 mg Acetaminophen (Tylenol 325mg Tab) 650 mg PO Q4 PRN PRN Reason: Pain, moderate (4-7) Last Admin: 09/16/16 22:34 Dose: 650 mg Albuterol Sulfate (Albuterol 0.083% Inhal Barbie (2.5 Mg/3 Ml) Ud) 2.5 mg INH RQ4 PRN PRN Reason: Shortness of Breath Albuterol/Ipratropium (Duoneb 3 Mg/0.5 Mg (3 Ml) Ud) 3 ml INH RQ4 PRN PRN Reason: Shortness of Breath Last Admin: 11/11/16 07:39 Dose: 3 ml Apixaban (Eliquis) 5 mg PO BID [facility] PRN Reason: Protocol Last Admin: 12/03/16 17:25 Dose: 5 mg Apixaban (Eliquis) 5 mg PO BID [facility] PRN Reason: Protocol Last Admin: 12/03/16 17:27 Dose: 5 mg Aspirin (Ecotrin) 81 mg PO DAILY [facility] Last Admin: 12/03/16 17:29 Dose: 81 mg Atorvastatin Calcium (Lipitor) 40 mg PO DAILY [facility] Last Admin: 12/03/16 13:55 Dose: 40 mg Benzonatate (Tessalon Perles) 200 mg PO TID PRN PRN Reason: Cough Last Admin: 11/21/16 09:06 Dose: 200 mg Calcium Carbonate (Oscal) 500 mg PO BIDWM [facility] Last Admin: 12/03/16 17:29 Dose: 500 mg Cinacalcet (Sensipar) 30 mg PO DAILY [facility] Last Admin: 12/03/16 13:59 Dose: 30 mg Collagenase (Santyl) 1 applic TOP DAILY [facility] Last Admin: 12/03/16 08:32 Dose: Not Given Diphenhydramine HCl (Benadryl) 25 mg PO Q6 PRN PRN Reason: Itching / Pruritus Last Admin: 11/12/16 08:34 Dose: 25 mg Docusate Sodium (Colace) 100 mg PO BID [facility] Last Admin: 12/03/16 17:29 Dose: 100 mg Epoetin Tha (Procrit) 20,000 unit IV [facility] Last Admin: 12/02/16 14:54 Dose: 20,000 unit Ergocalciferol (Drisdol 50,000 Intl Units Cap) 1 cap PO WED [facility] Last Admin: 11/27/16 08:32 Dose: 1 cap Fluconazole (Diflucan) 100 mg PO DAILY [facility] Last Admin: 12/03/16 13:55 Dose: 100 mg Gabapentin (Neurontin) 300 mg PO TID [facility] Last Admin: 12/03/16 17:24 Dose: 300 mg Hydrocortisone (Anusol-Hc) 1 applic [place] BID PRN PRN Reason: Inflammation Hydromorphone HCl (Dilaudid) 1 mg IVP Q2H PRN PRN Reason: Pain, severe (8-10) Last Admin: 12/03/16 20:49 Dose: 1 mg Meropenem 500 mg/ Sodium (Chloride) 100 mls @ 100 mls/hr IVPB DAILY@0100 [facility] Last Admin: 12/03/16 00:43 Dose: 100 mls/hr Gentamicin Sulfate/Sodium Chloride (Gentamicin 100mg/100ml Ns) 100 mg in 100 mls @ 100 mls/hr IVPB MWF [facility] Last Admin: 12/02/16 16:00 Dose: 100 mls/hr Tigecycline 25 mg/ Sodium (Chloride) 100 mls @ 100 mls/hr IVPB Q12 [facility] Last Admin: 12/03/16 21:49 Dose: 100 mls/hr Sodium Chloride (Sodium Chloride 0.45%) 500 mls @ 10 mls/hr IV .Q24H [facility] Last Admin: 12/03/16 14:02 Dose: Not Given Daptomycin 650 mg/ Sodium (Chloride) 100 mls @ 100 mls/hr IVPB MWF@1800 [facility] Stop: 12/16/16 18:59 Last Admin: 12/02/16 17:35 Dose: 100 mls/hr Sodium Chloride (Sodium Chloride 0.9%) 1,000 mls @ 25 mls/hr IV .Q24H [facility] Last Admin: 12/03/16 14:00 Dose: Not Given Insulin Detemir (Levemir) 6 units SC HS [facility] Last Admin: 12/03/16 22:47 Dose: 6 units Insulin Human Lispro (Humalog) 4 units SC AC [facility] Last Admin: 12/03/16 17:32 Dose: 4 units Lidocaine (Lidoderm) 1 ea TD DAILY [facility] Last Admin: 12/03/16 17:31 Dose: 1 ea Nystatin (Nystop Topical Powder) 1 applic TOP BID [facility] Last Admin: 12/03/16 17:28 Dose: 1 applic Ondansetron HCl (Zofran Inj) 4 mg IVP Q6 PRN PRN Reason: Nausea/Vomiting Last Admin: 09/19/16 10:26 Dose: 4 mg Pantoprazole Sodium (Protonix Ec Tab) 40 mg PO DAILY [facility] Last Admin: 12/03/16 13:57 Dose: 40 mg Sennosides (Senokot Tab) 25.8 mg PO HS [facility] Last Admin: 12/03/16 22:50 Dose: 25.8 mg Sevelamer HCl (Renagel) 1,600 mg PO TID [facility] Last Admin: 12/03/16 17:25 Dose: 1,600 mg Topiramate (Topamax) 50 mg PO BID [facility] Last Admin: 12/03/16 17:24 Dose: 50 mg Vitamin B Complex/Vit C/Folic Acid (Nephro-Ajay) 1 tab PO DAILY [facility] Last Admin: 12/03/16 13:07 Dose: 1 tab - Labs Labs: 12/02/16 13:05 12/02/16 13:05 PT 15.3 Seconds (9.8-13.1) H 12/02/16 13:05 INR 1.4 (0.9-1.2) H 12/02/16 13:05 APTT 37.0 Seconds (25.6-37.1) 12/02/16 13:05 Assessment and Plan (1) Diabetes Status: Chronic (2) ESRD (end stage renal disease) Status: Chronic (3) Cellulitis of leg Status: Chronic (4) Hyperlipidemia Status: Chronic (5) Back pain Status: Acute (6) Bacteremia due to Gram-negative bacteria Status: Acute (7) Diabetes mellitus type 2 with peripheral artery disease Status: Chronic (8) PVD (peripheral vascular disease) Status: Chronic (9) Osteomyelitis of right leg Status: Acute
[2016-12-04] MEDS: Meropenem 500 MG in Sodium Chloride 0.9% 100 ML IVPB SCH (00:29)
--- NOTE | 2016-12-04 05:24 | PN ---
ROOM: #[id number]. SUBJECTIVE: This is a 46-year-old female with recent uncontrolled type 2 insulin-requiring diabetes with much improved glycemic profile and currently only on the very low-dose combination of a basal and bolus insulin regimen. Her glucose levels have ranged from 102 to 121 mg/dL. Her latest chemistry showed a BUN of 31, sodium 139, potassium of 3.4, chloride 99, CO2 of 29, glucose 97, and creatinine 3.6. So at this time, we will continue the same basal and bolus insulin drug combination with Humalog given at 4 units subcu t.i.d. before meals and Levemir given as 6 units subcu at bedtime daily as ordered. We will titrate incremental as indicated to optimize metabolic control. She is also undergoing continued IV antibiotic management for postoperative ongoing management of underlying osteomyelitis with a recent debridement of the right below-knee amputation stump as noted. We will obtain serial chemistry and supplement accordingly as needed. We will follow with you. Irene Ambrose MD
[2016-12-04] MEDS: Insulin Lispro (humaLOG) 100 Units/ml Inj SC SCH ×3 (08:00→16:32)
--- NOTE | 2016-12-04 08:05 | CP.PCM.PN ---
<Sb [place]ves - Last Filed: 12/04/16 08:02> Subjective - Date & Time of Evaluation Date of Evaluation: 12/04/16 Time of Evaluation: 08:03 - Subjective Subjective: Vascular surery for Dr. Mccormack Pt s&e. Pt underwent R BKA washout and vac placement. PT tolerated it well. Pt doing well today. Pain controlled. Objective - Vital Signs/Intake and Output Vital Signs (last 24 hours): Temp Pulse Resp BP Pulse Ox 97.7 F 105 H 18 125/70 95 12/04/16 07:32 12/04/16 07:32 12/04/16 07:32 12/04/16 07:32 12/04/16 07:32 - Medications Medications: Current Medications Acetaminophen (Tylenol 325mg Tab) 650 mg PO Q4 PRN PRN Reason: Fever >100.4 F Last Admin: 11/21/16 00:44 Dose: 650 mg Acetaminophen (Tylenol 325mg Tab) 650 mg PO Q4 PRN PRN Reason: Pain, moderate (4-7) Last Admin: 09/16/16 22:34 Dose: 650 mg Albuterol Sulfate (Albuterol 0.083% Inhal Barbie (2.5 Mg/3 Ml) Ud) 2.5 mg INH RQ4 PRN PRN Reason: Shortness of Breath Albuterol/Ipratropium (Duoneb 3 Mg/0.5 Mg (3 Ml) Ud) 3 ml INH RQ4 PRN PRN Reason: Shortness of Breath Last Admin: 11/11/16 07:39 Dose: 3 ml Apixaban (Eliquis) 5 mg PO BID [facility] PRN Reason: Protocol Last Admin: 12/03/16 17:25 Dose: 5 mg Apixaban (Eliquis) 5 mg PO BID [facility] PRN Reason: Protocol Last Admin: 12/03/16 17:27 Dose: 5 mg Aspirin (Ecotrin) 81 mg PO DAILY [facility] Last Admin: 12/03/16 17:29 Dose: 81 mg Atorvastatin Calcium (Lipitor) 40 mg PO DAILY [facility] Last Admin: 12/03/16 13:55 Dose: 40 mg Benzonatate (Tessalon Perles) 200 mg PO TID PRN PRN Reason: Cough Last Admin: 11/21/16 09:06 Dose: 200 mg Calcium Carbonate (Oscal) 500 mg PO BIDWM [facility] Last Admin: 12/03/16 17:29 Dose: 500 mg Cinacalcet (Sensipar) 30 mg PO DAILY [facility] Last Admin: 12/03/16 13:59 Dose: 30 mg Collagenase (Santyl) 1 applic TOP DAILY [facility] Last Admin: 12/03/16 08:32 Dose: Not Given Diphenhydramine HCl (Benadryl) 25 mg PO Q6 PRN PRN Reason: Itching / Pruritus Last Admin: 11/12/16 08:34 Dose: 25 mg Docusate Sodium (Colace) 100 mg PO BID [facility] Last Admin: 12/03/16 17:29 Dose: 100 mg Epoetin Tha (Procrit) 20,000 unit IV [facility] Last Admin: 12/02/16 14:54 Dose: 20,000 unit Ergocalciferol (Drisdol 50,000 Intl Units Cap) 1 cap PO WED [facility] Last Admin: 11/27/16 08:32 Dose: 1 cap Fluconazole (Diflucan) 100 mg PO DAILY [facility] Last Admin: 12/03/16 13:55 Dose: 100 mg Gabapentin (Neurontin) 300 mg PO TID [facility] Last Admin: 12/03/16 17:24 Dose: 300 mg Hydrocortisone (Anusol-Hc) 1 applic [place] BID PRN PRN Reason: Inflammation Hydromorphone HCl (Dilaudid) 1 mg IVP Q2H PRN PRN Reason: Pain, severe (8-10) Last Admin: 12/04/16 00:44 Dose: 1 mg Meropenem 500 mg/ Sodium (Chloride) 100 mls @ 100 mls/hr IVPB DAILY@0100 [facility] Last Admin: 12/04/16 00:29 Dose: 100 mls/hr Gentamicin Sulfate/Sodium Chloride (Gentamicin 100mg/100ml Ns) 100 mg in 100 mls @ 100 mls/hr IVPB MWF [facility] Last Admin: 12/02/16 16:00 Dose: 100 mls/hr Tigecycline 25 mg/ Sodium (Chloride) 100 mls @ 100 mls/hr IVPB Q12 [facility] Last Admin: 12/03/16 21:49 Dose: 100 mls/hr Sodium Chloride (Sodium Chloride 0.45%) 500 mls @ 10 mls/hr IV .Q24H [facility] Last Admin: 12/03/16 14:02 Dose: Not Given Daptomycin 650 mg/ Sodium (Chloride) 100 mls @ 100 mls/hr IVPB MWF@1800 [facility] Stop: 12/16/16 18:59 Last Admin: 12/02/16 17:35 Dose: 100 mls/hr Sodium Chloride (Sodium Chloride 0.9%) 1,000 mls @ 25 mls/hr IV .Q24H [facility] Last Admin: 12/03/16 14:00 Dose: Not Given Insulin Detemir (Levemir) 6 units SC HS [facility] Last Admin: 12/03/16 22:47 Dose: 6 units Insulin Human Lispro (Humalog) 4 units SC AC [facility] Last Admin: 12/03/16 17:32 Dose: 4 units Lidocaine (Lidoderm) 1 ea TD DAILY [facility] Last Admin: 12/03/16 17:31 Dose: 1 ea Nystatin (Nystop Topical Powder) 1 applic TOP BID [facility] Last Admin: 12/03/16 17:28 Dose: 1 applic Ondansetron HCl (Zofran Inj) 4 mg IVP Q6 PRN PRN Reason: Nausea/Vomiting Last Admin: 09/19/16 10:26 Dose: 4 mg Pantoprazole Sodium (Protonix Ec Tab) 40 mg PO DAILY [facility] Last Admin: 12/03/16 13:57 Dose: 40 mg Sennosides (Senokot Tab) 25.8 mg PO HS [facility] Last Admin: 12/03/16 22:50 Dose: 25.8 mg Sevelamer HCl (Renagel) 1,600 mg PO TID [facility] Last Admin: 12/03/16 17:25 Dose: 1,600 mg Topiramate (Topamax) 50 mg PO BID [facility] Last Admin: 12/03/16 17:24 Dose: 50 mg Vitamin B Complex/Vit C/Folic Acid (Nephro-Ajay) 1 tab PO DAILY [facility] Last Admin: 12/03/16 13:07 Dose: 1 tab - Labs Labs: 12/02/16 13:05 12/02/16 13:05 PT 15.3 Seconds (9.8-13.1) H 12/02/16 13:05 INR 1.4 (0.9-1.2) H 12/02/16 13:05 APTT 37.0 Seconds (25.6-37.1) 12/02/16 13:05 - Constitutional Appears: No Acute Distress - Head Exam Head Exam: ATRAUMATIC, NORMAL INSPECTION, NORMOCEPHALIC - Eye Exam Eye Exam: EOMI, Normal appearance, PERRL Pupil Exam: NORMAL ACCOMODATION, PERRL - ENT Exam ENT Exam: Mucous Membranes Moist, Normal Exam - Neck Exam Neck Exam: Full ROM, Normal Inspection. absent: Lymphadenopathy - Respiratory Exam Respiratory Exam: Clear to Ausculation Bilateral, NORMAL BREATHING PATTERN - Cardiovascular Exam Cardiovascular Exam: REGULAR RHYTHM, +S1, +S2. absent: Murmur - GI/Abdominal Exam GI & Abdominal Exam: Soft, Normal Bowel Sounds. absent: Distended, Firm, Guarding, Rigid, Tenderness - Exam Exam: NORMAL INSPECTION - Extremities Exam Additional comments: b/l BKA. Dressing C/D/I. wound vac in place. functioning. 100cc SS output. - Back Exam Back Exam: NORMAL INSPECTION - Neurological Exam Neurological Exam: Alert, Awake, CN II-XII Intact, Oriented x3 - Psychiatric Exam Psychiatric exam: Normal Affect, Normal Mood - Skin Skin Exam: Dry, Intact, Normal Color, Warm Assessment and Plan - Assessment and Plan (Free Text) Assessment: POD 1 s/p R bka stump washout and wound vac placement Patient remains clinically stable. She shows no systemic signs of infection. -Continue current treatment -broad antibiotic coverage -local wound care -Possible wound vac change on Friday Will MASSIEL Mccormack <Raffy Mccormack - Last Filed: 12/04/16 11:54> Objective - Vital Signs/Intake and Output Vital Signs (last 24 hours): Temp Pulse Resp BP Pulse Ox 97.7 F 105 H 18 125/70 95 12/04/16 07:32 12/04/16 07:32 12/04/16 07:32 12/04/16 07:32 12/04/16 07:32 - Medications Medications: Current Medications Acetaminophen (Tylenol 325mg Tab) 650 mg PO Q4 PRN PRN Reason: Fever >100.4 F Last Admin: 11/21/16 00:44 Dose: 650 mg Acetaminophen (Tylenol 325mg Tab) 650 mg PO Q4 PRN PRN Reason: Pain, moderate (4-7) Last Admin: 09/16/16 22:34 Dose: 650 mg Albuterol Sulfate (Albuterol 0.083% Inhal Barbie (2.5 Mg/3 Ml) Ud) 2.5 mg INH RQ4 PRN PRN Reason: Shortness of Breath Albuterol/Ipratropium (Duoneb 3 Mg/0.5 Mg (3 Ml) Ud) 3 ml INH RQ4 PRN PRN Reason: Shortness of Breath Last Admin: 11/11/16 07:39 Dose: 3 ml Apixaban (Eliquis) 5 mg PO BID [facility] PRN Reason: Protocol Last Admin: 12/04/16 09:20 Dose: 5 mg Apixaban (Eliquis) 5 mg PO BID [facility] PRN Reason: Protocol Last Admin: 12/04/16 09:30 Dose: 5 mg Aspirin (Ecotrin) 81 mg PO DAILY [facility] Last Admin: 12/04/16 09:30 Dose: 81 mg Atorvastatin Calcium (Lipitor) 40 mg PO DAILY [facility] Last Admin: 12/04/16 09:27 Dose: 40 mg Benzonatate (Tessalon Perles) 200 mg PO TID PRN PRN Reason: Cough Last Admin: 11/21/16 09:06 Dose: 200 mg Calcium Carbonate (Oscal) 500 mg PO BIDWM [facility] Last Admin: 12/04/16 09:30 Dose: 500 mg Cinacalcet (Sensipar) 30 mg PO DAILY [facility] Last Admin: 12/04/16 10:25 Dose: 30 mg Collagenase (Santyl) 1 applic TOP DAILY [facility] Last Admin: 12/03/16 08:32 Dose: Not Given Diphenhydramine HCl (Benadryl) 25 mg PO Q6 PRN PRN Reason: Itching / Pruritus Last Admin: 11/12/16 08:34 Dose: 25 mg Docusate Sodium (Colace) 100 mg PO BID [facility] Last Admin: 12/04/16 09:31 Dose: 100 mg Epoetin Tha (Procrit) 20,000 unit IV MWF [facility] Last Admin: 12/02/16 14:54 Dose: 20,000 unit Ergocalciferol (Drisdol 50,000 Intl Units Cap) 1 cap PO WED [facility] Last Admin: 12/04/16 09:30 Dose: 1 cap Fluconazole (Diflucan) 100 mg PO DAILY [facility] Last Admin: 12/04/16 09:31 Dose: 100 mg Gabapentin (Neurontin) 300 mg PO TID [facility] Last Admin: 12/04/16 09:30 Dose: 300 mg Hydrocortisone (Anusol-Hc) 1 applic [place] BID PRN PRN Reason: Inflammation Hydromorphone HCl (Dilaudid) 1 mg IVP Q2H PRN PRN Reason: Pain, severe (8-10) Last Admin: 12/04/16 08:32 Dose: 1 mg Meropenem 500 mg/ Sodium (Chloride) 100 mls @ 100 mls/hr IVPB DAILY@0100 [facility] Last Admin: 12/04/16 00:29 Dose: 100 mls/hr Gentamicin Sulfate/Sodium Chloride (Gentamicin 100mg/100ml Ns) 100 mg in 100 mls @ 100 mls/hr IVPB MWF [facility] Last Admin: 12/02/16 16:00 Dose: 100 mls/hr Tigecycline 25 mg/ Sodium (Chloride) 100 mls @ 100 mls/hr IVPB Q12 [facility] Last Admin: 12/04/16 10:26 Dose: 100 mls/hr Sodium Chloride (Sodium Chloride 0.45%) 500 mls @ 10 mls/hr IV .Q24H [facility] Last Admin: 12/03/16 14:02 Dose: Not Given Daptomycin 650 mg/ Sodium (Chloride) 100 mls @ 100 mls/hr IVPB MWF@1800 [facility] Stop: 12/16/16 18:59 Last Admin: 12/02/16 17:35 Dose: 100 mls/hr Sodium Chloride (Sodium Chloride 0.9%) 1,000 mls @ 25 mls/hr IV .Q24H [facility] Last Admin: 12/03/16 14:00 Dose: Not Given Insulin Detemir (Levemir) 6 units SC HS [facility] Last Admin: 12/03/16 22:47 Dose: 6 units Insulin Human Lispro (Humalog) 4 units SC AC [facility] Last Admin: 12/04/16 08:00 Dose: 4 units Lidocaine (Lidoderm) 1 ea TD DAILY [facility] Last Admin: 12/04/16 09:27 Dose: 1 ea Nystatin (Nystop Topical Powder) 1 applic TOP BID [facility] Last Admin: 12/04/16 10:23 Dose: 1 applic Ondansetron HCl (Zofran Inj) 4 mg IVP Q6 PRN PRN Reason: Nausea/Vomiting Last Admin: 09/19/16 10:26 Dose: 4 mg Pantoprazole Sodium (Protonix Ec Tab) 40 mg PO DAILY [facility] Last Admin: 12/04/16 09:25 Dose: 40 mg Sennosides (Senokot Tab) 25.8 mg PO HS [facility] Last Admin: 12/03/16 22:50 Dose: 25.8 mg Sevelamer HCl (Renagel) 1,600 mg PO TID [facility] Last Admin: 12/04/16 09:45 Dose: 1,600 mg Topiramate (Topamax) 50 mg PO BID [facility] Last Admin: 12/04/16 10:25 Dose: 50 mg Vitamin B Complex/Vit C/Folic Acid (Nephro-Ajay) 1 tab PO DAILY [facility] Last Admin: 12/04/16 09:27 Dose: 1 tab - Labs Labs: 12/02/16 13:05 12/02/16 13:05 PT 15.3 Seconds (9.8-13.1) H 12/02/16 13:05 INR 1.4 (0.9-1.2) H 12/02/16 13:05 APTT 37.0 Seconds (25.6-37.1) 12/02/16 13:05 Assessment and Plan - Assessment and Plan (Free Text) Plan: Patient seen and examined. Agree with resident's assessment. Right BKA VAC is on and working. Right patellar wound shows no krystal signs of infection such as pus or purulent discharge. There is no necrotic tissue present. Continue current treatment, antibiotic coverage, local wound care - VAC to the BKA stump and Santyl to patellar wound. I'll plan to change VAC tomorrow at the bedside and examine the wound.
[2016-12-04] MEDS: Pantoprazole 40 mg EC Tab PO SCH (09:25)
[2016-12-04] MEDS: Lidocaine 5% Patch TD SCH (09:27)
[2016-12-04] MEDS: Multivitamin Vitamin B Complex (Nephro-Vite) Tab PO SCH (09:27)
[2016-12-04] MEDS: Ergocalciferol 50,000 Intl Units Cap PO SCH (09:30)
[2016-12-04] MEDS: SODIUM CHLORIDE 0.9% IVPB SCH ×2 (10:26→20:02)
[2016-12-04] MEDS: TIGECYCLINE IVPB SCH ×2 (10:26→20:02)
--- NOTE | 2016-12-04 10:36 | CP.PCM.PN ---
Subjective - Date & Time of Evaluation Date of Evaluation: 12/04/16 Time of Evaluation: 10:33 - Subjective Subjective: Just about to start hemodialysis. All vital signs stable. No pain or dyspnea or cough. S/P pulsed washing of right BK wound and application of wound vac on 12/02. Cultures of wound are pending. Awaiting wound care team recommendations for care of right patellar wound. Dr. Mccormack to change wound vac on 12/06. Patient continues on 4 iv and 1 po antibiotic DM stable on multiple insulin doses, coagulopathy managed on Eliquis and ASA, and no seizures on Topamax. Patient is ready to resume physical and occupational therapy with care regarding wound vac. Objective - Vital Signs/Intake and Output Vital Signs (last 24 hours): Temp Pulse Resp BP Pulse Ox 97.7 F 105 H 18 125/70 95 12/04/16 07:32 12/04/16 07:32 12/04/16 07:32 12/04/16 07:32 12/04/16 07:32 - Medications Medications: Current Medications Acetaminophen (Tylenol 325mg Tab) 650 mg PO Q4 PRN PRN Reason: Fever >100.4 F Last Admin: 11/21/16 00:44 Dose: 650 mg Acetaminophen (Tylenol 325mg Tab) 650 mg PO Q4 PRN PRN Reason: Pain, moderate (4-7) Last Admin: 09/16/16 22:34 Dose: 650 mg Albuterol Sulfate (Albuterol 0.083% Inhal Barbie (2.5 Mg/3 Ml) Ud) 2.5 mg INH RQ4 PRN PRN Reason: Shortness of Breath Albuterol/Ipratropium (Duoneb 3 Mg/0.5 Mg (3 Ml) Ud) 3 ml INH RQ4 PRN PRN Reason: Shortness of Breath Last Admin: 11/11/16 07:39 Dose: 3 ml Apixaban (Eliquis) 5 mg PO BID [facility] PRN Reason: Protocol Last Admin: 12/03/16 17:25 Dose: 5 mg Apixaban (Eliquis) 5 mg PO BID [facility] PRN Reason: Protocol Last Admin: 12/03/16 17:27 Dose: 5 mg Aspirin (Ecotrin) 81 mg PO DAILY [facility] Last Admin: 12/03/16 17:29 Dose: 81 mg Atorvastatin Calcium (Lipitor) 40 mg PO DAILY [facility] Last Admin: 12/03/16 13:55 Dose: 40 mg Benzonatate (Tessalon Perles) 200 mg PO TID PRN PRN Reason: Cough Last Admin: 11/21/16 09:06 Dose: 200 mg Calcium Carbonate (Oscal) 500 mg PO BIDWM [facility] Last Admin: 12/03/16 17:29 Dose: 500 mg Cinacalcet (Sensipar) 30 mg PO DAILY [facility] Last Admin: 12/03/16 13:59 Dose: 30 mg Collagenase (Santyl) 1 applic TOP DAILY [facility] Last Admin: 12/03/16 08:32 Dose: Not Given Diphenhydramine HCl (Benadryl) 25 mg PO Q6 PRN PRN Reason: Itching / Pruritus Last Admin: 11/12/16 08:34 Dose: 25 mg Docusate Sodium (Colace) 100 mg PO BID [facility] Last Admin: 12/03/16 17:29 Dose: 100 mg Epoetin Tha (Procrit) 20,000 unit IV [facility] Last Admin: 12/02/16 14:54 Dose: 20,000 unit Ergocalciferol (Drisdol 50,000 Intl Units Cap) 1 cap PO WED [facility] Last Admin: 11/27/16 08:32 Dose: 1 cap Fluconazole (Diflucan) 100 mg PO DAILY [facility] Last Admin: 12/03/16 13:55 Dose: 100 mg Gabapentin (Neurontin) 300 mg PO TID [facility] Last Admin: 12/03/16 17:24 Dose: 300 mg Hydrocortisone (Anusol-Hc) 1 applic [place] BID PRN PRN Reason: Inflammation Hydromorphone HCl (Dilaudid) 1 mg IVP Q2H PRN PRN Reason: Pain, severe (8-10) Last Admin: 12/04/16 08:32 Dose: 1 mg Meropenem 500 mg/ Sodium (Chloride) 100 mls @ 100 mls/hr IVPB DAILY@0100 [facility] Last Admin: 12/04/16 00:29 Dose: 100 mls/hr Gentamicin Sulfate/Sodium Chloride (Gentamicin 100mg/100ml Ns) 100 mg in 100 mls @ 100 mls/hr IVPB MWF [facility] Last Admin: 12/02/16 16:00 Dose: 100 mls/hr Tigecycline 25 mg/ Sodium (Chloride) 100 mls @ 100 mls/hr IVPB Q12 [facility] Last Admin: 12/03/16 21:49 Dose: 100 mls/hr Sodium Chloride (Sodium Chloride 0.45%) 500 mls @ 10 mls/hr IV .Q24H [facility] Last Admin: 12/03/16 14:02 Dose: Not Given Daptomycin 650 mg/ Sodium (Chloride) 100 mls @ 100 mls/hr IVPB MWF@1800 [facility] Stop: 12/16/16 18:59 Last Admin: 12/02/16 17:35 Dose: 100 mls/hr Sodium Chloride (Sodium Chloride 0.9%) 1,000 mls @ 25 mls/hr IV .Q24H [facility] Last Admin: 12/03/16 14:00 Dose: Not Given Insulin Detemir (Levemir) 6 units SC HS [facility] Last Admin: 12/03/16 22:47 Dose: 6 units Insulin Human Lispro (Humalog) 4 units SC AC [facility] Last Admin: 12/03/16 17:32 Dose: 4 units Lidocaine (Lidoderm) 1 ea TD DAILY [facility] Last Admin: 12/03/16 17:31 Dose: 1 ea Nystatin (Nystop Topical Powder) 1 applic TOP BID [facility] Last Admin: 12/03/16 17:28 Dose: 1 applic Ondansetron HCl (Zofran Inj) 4 mg IVP Q6 PRN PRN Reason: Nausea/Vomiting Last Admin: 09/19/16 10:26 Dose: 4 mg Pantoprazole Sodium (Protonix Ec Tab) 40 mg PO DAILY [facility] Last Admin: 12/03/16 13:57 Dose: 40 mg Sennosides (Senokot Tab) 25.8 mg PO HS [facility] Last Admin: 12/03/16 22:50 Dose: 25.8 mg Sevelamer HCl (Renagel) 1,600 mg PO TID [facility] Last Admin: 12/03/16 17:25 Dose: 1,600 mg Topiramate (Topamax) 50 mg PO BID [facility] Last Admin: 12/03/16 17:24 Dose: 50 mg Vitamin B Complex/Vit C/Folic Acid (Nephro-Ajay) 1 tab PO DAILY [facility] Last Admin: 12/03/16 13:07 Dose: 1 tab - Labs Labs: 12/02/16 13:05 12/02/16 13:05 PT 15.3 Seconds (9.8-13.1) H 12/02/16 13:05 INR 1.4 (0.9-1.2) H 12/02/16 13:05 APTT 37.0 Seconds (25.6-37.1) 12/02/16 13:05 - Constitutional Appears: No Acute Distress - Head Exam Head Exam: NORMAL INSPECTION - Eye Exam Eye Exam: Normal appearance - ENT Exam ENT Exam: Mucous Membranes Moist - Neck Exam Neck Exam: Normal Inspection Additional comments: R subclavian Permacath intact. - Respiratory Exam Respiratory Exam: Clear to Ausculation Bilateral - Cardiovascular Exam Cardiovascular Exam: REGULAR RHYTHM, +S1, +S2 - GI/Abdominal Exam GI & Abdominal Exam: Soft, Normal Bowel Sounds - Extremities Exam Additional comments: Wound vac in place R BK wound. Approx 100 cc serosanguinous drainage. From what can be seen, the wound looks good! L femoral vein PICC line in place. All other extremities as before. - Back Exam Back Exam: NORMAL INSPECTION - Neurological Exam Neurological Exam: Alert, Awake, Oriented x3 - Psychiatric Exam Psychiatric exam: Normal Affect, Normal Mood - Skin Skin Exam: Dry, Normal Color, Warm Assessment and Plan (1) Status post below knee amputation of right lower extremity Assessment & Plan: Making nice progress in wound healing. Continue present treatments. Dr. Mccormack to change wound vac on 12/06. Wound care team to make recommendations for right patellar care. Status: Acute (2) ESRD (end stage renal disease) on dialysis Status: Chronic (3) DM type 2 (diabetes mellitus, type 2) Status: Chronic (4) Coagulopathy Status: Chronic (5) Peripheral arterial occlusive disease Status: Chronic
[2016-12-04] MEDS: Santyl Collagenase OINTMENT TOP SCH ×2 (13:09→13:10)
[2016-12-04] MEDS: Gentamicin 100mg/100ml NS 100 MG/100 ML BAG IVPB SCH (16:32)
[2016-12-04] MEDS: Epoetin Alfa 20000 UNIT/ML Inj IV SCH (16:33)
--- NOTE | 2016-12-04 18:39 | CP.PCM.PN ---
Subjective - Date & Time of Evaluation Date of Evaluation: 12/04/16 Time of Evaluation: 06:30 - Subjective Subjective: Feels better Objective - Vital Signs/Intake and Output Vital Signs (last 24 hours): Temp Pulse Resp BP Pulse Ox 98.4 F 100 H 20 133/61 98 12/04/16 16:27 12/04/16 16:27 12/04/16 16:27 12/04/16 16:27 12/04/16 16:27 - Medications Medications: Current Medications Acetaminophen (Tylenol 325mg Tab) 650 mg PO Q4 PRN PRN Reason: Fever >100.4 F Last Admin: 11/21/16 00:44 Dose: 650 mg Acetaminophen (Tylenol 325mg Tab) 650 mg PO Q4 PRN PRN Reason: Pain, moderate (4-7) Last Admin: 09/16/16 22:34 Dose: 650 mg Albuterol Sulfate (Albuterol 0.083% Inhal Barbie (2.5 Mg/3 Ml) Ud) 2.5 mg INH RQ4 PRN PRN Reason: Shortness of Breath Albuterol/Ipratropium (Duoneb 3 Mg/0.5 Mg (3 Ml) Ud) 3 ml INH RQ4 PRN PRN Reason: Shortness of Breath Last Admin: 11/11/16 07:39 Dose: 3 ml Apixaban (Eliquis) 5 mg PO BID [facility] PRN Reason: Protocol Last Admin: 12/04/16 16:31 Dose: 5 mg Aspirin (Ecotrin) 81 mg PO DAILY [facility] Last Admin: 12/04/16 09:30 Dose: 81 mg Atorvastatin Calcium (Lipitor) 40 mg PO DAILY [facility] Last Admin: 12/04/16 09:27 Dose: 40 mg Benzonatate (Tessalon Perles) 200 mg PO TID PRN PRN Reason: Cough Last Admin: 11/21/16 09:06 Dose: 200 mg Calcium Carbonate (Oscal) 500 mg PO BIDWM [facility] Last Admin: 12/04/16 16:26 Dose: 500 mg Cinacalcet (Sensipar) 30 mg PO DAILY [facility] Last Admin: 12/04/16 10:25 Dose: 30 mg Collagenase (Santyl) 1 applic TOP DAILY [facility] Last Admin: 12/04/16 13:09 Dose: 1 applic Collagenase (Santyl) 1 applic TOP DAILY [facility] Last Admin: 12/04/16 13:10 Dose: 1 applic Diphenhydramine HCl (Benadryl) 25 mg PO Q6 PRN PRN Reason: Itching / Pruritus Last Admin: 11/12/16 08:34 Dose: 25 mg Docusate Sodium (Colace) 100 mg PO BID [facility] Last Admin: 12/04/16 16:26 Dose: 100 mg Epoetin Tha (Procrit) 20,000 unit IV MWF [facility] Last Admin: 12/04/16 16:33 Dose: Not Given Ergocalciferol (Drisdol 50,000 Intl Units Cap) 1 cap PO WED [facility] Last Admin: 12/04/16 09:30 Dose: 1 cap Fluconazole (Diflucan) 100 mg PO DAILY [facility] Last Admin: 12/04/16 09:31 Dose: 100 mg Gabapentin (Neurontin) 300 mg PO TID [facility] Last Admin: 12/04/16 16:25 Dose: 300 mg Hydrocortisone (Anusol-Hc) 1 applic [place] BID PRN PRN Reason: Inflammation Hydromorphone HCl (Dilaudid) 1 mg IVP Q2H PRN PRN Reason: Pain, severe (8-10) Last Admin: 12/04/16 15:39 Dose: 1 mg Meropenem 500 mg/ Sodium (Chloride) 100 mls @ 100 mls/hr IVPB DAILY@0100 [facility] Last Admin: 12/04/16 00:29 Dose: 100 mls/hr Gentamicin Sulfate/Sodium Chloride (Gentamicin 100mg/100ml Ns) 100 mg in 100 mls @ 100 mls/hr IVPB MWF [facility] Last Admin: 12/04/16 16:32 Dose: 100 mls/hr Tigecycline 25 mg/ Sodium (Chloride) 100 mls @ 100 mls/hr IVPB Q12 [facility] Last Admin: 12/04/16 10:26 Dose: 100 mls/hr Sodium Chloride (Sodium Chloride 0.45%) 500 mls @ 10 mls/hr IV .Q24H [facility] Last Admin: 12/03/16 14:02 Dose: Not Given Daptomycin 650 mg/ Sodium (Chloride) 100 mls @ 100 mls/hr IVPB MWF@1800 [facility] Stop: 12/16/16 18:59 Last Admin: 12/04/16 17:13 Dose: 100 mls/hr Sodium Chloride (Sodium Chloride 0.9%) 1,000 mls @ 25 mls/hr IV .Q24H [facility] Last Admin: 12/03/16 14:00 Dose: Not Given Insulin Detemir (Levemir) 6 units SC HS [facility] Last Admin: 12/03/16 22:47 Dose: 6 units Insulin Human Lispro (Humalog) 4 units SC AC [facility] Last Admin: 12/04/16 16:32 Dose: 4 units Lidocaine (Lidoderm) 1 ea TD DAILY [facility] Last Admin: 12/04/16 09:27 Dose: 1 ea Nystatin (Nystop Topical Powder) 1 applic TOP BID [facility] Last Admin: 12/04/16 17:58 Dose: Not Given Ondansetron HCl (Zofran Inj) 4 mg IVP Q6 PRN PRN Reason: Nausea/Vomiting Last Admin: 09/19/16 10:26 Dose: 4 mg Pantoprazole Sodium (Protonix Ec Tab) 40 mg PO DAILY [facility] Last Admin: 12/04/16 09:25 Dose: 40 mg Sennosides (Senokot Tab) 25.[address] [facility] Last Admin: 12/03/16 22:50 Dose: 25.8 mg Sevelamer HCl (Renagel) 1,600 mg PO TID [facility] Last Admin: 12/04/16 16:25 Dose: 1,600 mg Topiramate (Topamax) 50 mg PO BID [facility] Last Admin: 12/04/16 16:30 Dose: 50 mg Vitamin B Complex/Vit C/Folic Acid (Nephro-Ajay) 1 tab PO DAILY [facility] Last Admin: 12/04/16 09:27 Dose: 1 tab - Labs Labs: 12/02/16 13:05 12/02/16 13:05 PT 15.3 Seconds (9.8-13.1) H 12/02/16 13:05 INR 1.4 (0.9-1.2) H 12/02/16 13:05 APTT 37.0 Seconds (25.6-37.1) 12/02/16 13:05 - Respiratory Exam Additional comments: Lungs clear - Cardiovascular Exam Cardiovascular Exam: REGULAR RHYTHM - Extremities Exam Additional comments: Rt stump dresssed. Wound vac in place Assessment and Plan - Assessment and Plan (Free Text) Assessment: ESRD on HD, Rt stump wounf S/P I & D IDDM Plan: Dialysis was tolerated well yesterday Conitnue HD per schedule
[2016-12-04] MEDS: Insulin Detemir 100 Units/ml Inj SC SCH (22:01)
--- NOTE | 2016-12-04 23:00 | PN ---
ENDOCRINOLOGY PROGRESS NOTE Room 661. SUBJECTIVE: This is a 46-year-old female with recent uncontrolled type 2 insulin requiring diabetes, now with much improved glycemic profile especially noted postoperatively, following a right below-knee amputation as noted. She also had a recent debridement of the right below-knee amputation stump because of underlying osteomyelitis. Her glycemic levels are much improved that have ranged from 97 to 121 and 127 mg/dL. Her latest chemistry showed BUN of 31, sodium 139, potassium 3.4, chloride 99, CO2 of 29, glucose 97 and creatinine 3.6. So, at this time, we will continue the same basal and bolus insulin regimen as ordered with Levemir given at 6 units subcu at bedtime daily as given and Humalog given as 4 units subcu t.i.d. before meals as ordered. We will titrate incremental as indicated to optimize metabolic control. We will obtain serial chemistries and supplement accordingly as needed. We will follow and advise accordingly. Irene Ambrose MD
[2016-12-05] MEDS: Meropenem 500 MG in Sodium Chloride 0.9% 100 ML IVPB SCH (01:43)
--- NOTE | 2016-12-05 06:28 | OP ---
PROCEDURE DATE: 12/03/2016 PREOPERATIVE DIAGNOSES: 1. Infected right below-knee amputation stump. 2. Right patellar wound. POSTOPERATIVE DIAGNOSES: 1. Infected right below-knee amputation stump. 2. Right patellar wound. PROCEDURES: 1. Debridement and wash out of the right below-knee amputation stump with VAC dressing placement. 2. Excision of debridement of right patellar wound. SURGEON: Raffy Mccormack MD [employer] SUPERVISOR: Sb Groves DO TYPE OF ANESTHESIA: LMA general. INDICATIONS FOR SURGERY: The patient is a 46-year-old female who has multiple and severe comorbidities. The patient underwent right below-knee amputation approximately 2 months ago. Unfortunately, she developed tissue necrosis with infection of the right below-knee amputation stump. The patient underwent several revision and debridement procedures of the right below-knee amputation stump. Fortunately, surgical wound has shown good progress towards healing. It was granulating well and infection was controlled. Decision was made to proceed with additional debridement of stump nonviable tissue in the right below-knee amputation stump and proceed with pulse lavage irrigation to decrease bioburden with VAC application. At the same time, surgical plan included debridement of the right patellar wound as well. Risks and benefits of the procedure were clearly explained to the patient. The risk of infection, poor wound healing, need for additional procedures and possible need for above-knee amputation were emphasized with the patient. She signed informed consent and decided to proceed with operation. DESCRIPTION OF PROCEDURE: Right lower extremity was marked prior to coming to the operating room as the correct surgical side. LMA anesthesia was applied and right lower extremity was prepped and draped in sterile fashion. Right below-knee amputation wound was examined. There was scant amount of nonviable fat and fascial tissue which was sharply removed. There was excellent beefy red granulation tissue which was oozing nicely. The wound was cleaned with 4 liters of Bacitracin containing normal saline. Pulse lavage was used for the washout. Once completed, VAC dressing was applied and set to 125 mmHg negative pressure. VAC was working very nicely and there was excellent seal. Next, we turned our attention to debridement of the right patellar wound. It measured approximately 5 cm in length, 2 cm in width and 0.5 cm in depth. The wound was covered by fibrinous black eschar which was removed sharply. Small amount of nonviable tissue was removed with scalpel until we reached the level of perfused and viable-looking tissue. I did not appreciate extension of the wound into the joint space. It did not appear to involve knee joint capsule. Bacitracin was applied for the patellar wound and covered with Vaseline gauze. Sterile dressing was applied. At this point, procedure was terminated. The patient woke up from anesthesia in the OR without difficulty and was transferred to postanesthesia care unit in satisfactory condition. Raffy Mccormack MD [place]
[2016-12-05] MEDS: Insulin Lispro (humaLOG) 100 Units/ml Inj SC SCH ×3 (09:23→16:13)
[2016-12-05] MEDS: Santyl Collagenase OINTMENT TOP SCH ×2 (09:23→09:30)
[2016-12-05] MEDS: Lidocaine 5% Patch TD SCH (09:25)
[2016-12-05] MEDS: Pantoprazole 40 mg EC Tab PO SCH (09:26)
[2016-12-05] MEDS: Multivitamin Vitamin B Complex (Nephro-Vite) Tab PO SCH (09:26)
[2016-12-05] MEDS: TIGECYCLINE IVPB SCH ×2 (09:30→21:01)
[2016-12-05] MEDS: SODIUM CHLORIDE 0.9% IVPB SCH ×2 (09:30→21:01)
--- NOTE | 2016-12-05 11:59 | CP.PCM.PN ---
<GermainSb - Last Filed: 12/05/16 11:57> Subjective - Date & Time of Evaluation Date of Evaluation: 12/05/16 Time of Evaluation: 11:57 - Subjective Subjective: Surgery for Dr. Mccormack Pt s&e. Wound vac changed by Dr. Mccormack this AM. Pt doing well. Denies F/C/N/V/ D/CP/SOB. Pain controlled. Objective - Vital Signs/Intake and Output Vital Signs (last 24 hours): Temp Pulse Resp BP Pulse Ox 97.7 F 109 H 18 127/67 100 12/05/16 07:30 12/05/16 07:30 12/05/16 07:30 12/05/16 07:30 12/05/16 07:30 - Medications Medications: Current Medications Acetaminophen (Tylenol 325mg Tab) 650 mg PO Q4 PRN PRN Reason: Fever >100.4 F Last Admin: 11/21/16 00:44 Dose: 650 mg Acetaminophen (Tylenol 325mg Tab) 650 mg PO Q4 PRN PRN Reason: Pain, moderate (4-7) Last Admin: 09/16/16 22:34 Dose: 650 mg Albuterol Sulfate (Albuterol 0.083% Inhal Barbie (2.5 Mg/3 Ml) Ud) 2.5 mg INH RQ4 PRN PRN Reason: Shortness of Breath Albuterol/Ipratropium (Duoneb 3 Mg/0.5 Mg (3 Ml) Ud) 3 ml INH RQ4 PRN PRN Reason: Shortness of Breath Last Admin: 11/11/16 07:39 Dose: 3 ml Apixaban (Eliquis) 5 mg PO BID JASPER PRN Reason: Protocol Last Admin: 12/05/16 09:25 Dose: 5 mg Aspirin (Ecotrin) 81 mg PO DAILY [facility] Last Admin: 12/05/16 09:26 Dose: 81 mg Atorvastatin Calcium (Lipitor) 40 mg PO DAILY [facility] Last Admin: 12/05/16 09:26 Dose: 40 mg Benzonatate (Tessalon Perles) 200 mg PO TID PRN PRN Reason: Cough Last Admin: 11/21/16 09:06 Dose: 200 mg Calcium [facility]ate (Oscal) [facility] Last Admin: 12/05/16 08:00 Dose: 500 mg Cinacalcet (Sensipar) 30 mg PO DAILY [facility] Last Admin: 12/05/16 09:26 Dose: 30 mg Collagenase (Santyl) 1 applic TOP DAILY [facility] Last Admin: 12/05/16 09:23 Dose: 1 applic Collagenase (Santyl) 1 applic TOP DAILY [facility] Last Admin: 12/05/16 09:30 Dose: 1 applic Collagenase (Santyl) 1 applic TOP DAILY [facility] Diphenhydramine HCl (Benadryl) 25 mg PO Q6 PRN PRN Reason: Itching / Pruritus Last Admin: 11/12/16 08:34 Dose: 25 mg Docusate Sodium (Colace) 100 mg PO BID [facility] Last Admin: 12/05/16 09:26 Dose: 100 mg Epoetin Tha (Procrit) 20,000 unit [place] [facility] Last Admin: 12/04/16 16:33 Dose: Not Given Ergocalciferol (Drisdol 50,000 Intl Units Cap) 1 cap PO WED [facility] Last Admin: 12/04/16 09:30 Dose: 1 cap Fluconazole (Diflucan) 100 mg PO DAILY [facility] Last Admin: 12/05/16 09:27 Dose: 100 mg Gabapentin (Neurontin) 300 mg PO TID [facility] Last Admin: 12/05/16 09:26 Dose: 300 mg Hydrocortisone (Anusol-Hc) 1 applic [place] BID PRN PRN Reason: Inflammation Hydromorphone HCl (Dilaudid) 1 mg IVP Q2H PRN PRN Reason: Pain, severe (8-10) Last Admin: 12/05/16 07:31 Dose: 1 mg Meropenem 500 mg/ Sodium (Chloride) 100 mls @ 100 mls/hr IVPB DAILY@0100 [facility] Last Admin: 12/05/16 01:43 Dose: 100 mls/hr Gentamicin Sulfate/Sodium Chloride (Gentamicin 100mg/100ml Ns) 100 mg in 100 mls @ 100 mls/hr IVPB MWF [facility] Last Admin: 12/04/16 16:32 Dose: 100 mls/hr Tigecycline 25 mg/ Sodium (Chloride) 100 mls @ 100 mls/hr IVPB Q12 [facility] Last Admin: 12/05/16 09:30 Dose: 100 mls/hr Sodium Chloride (Sodium Chloride 0.45%) 500 mls @ 10 mls/hr IV .Q24H [facility] Last Admin: 12/03/16 14:02 Dose: Not Given Daptomycin 650 mg/ Sodium (Chloride) 100 mls @ 100 mls/hr IVPB MWF@1800 [facility] Stop: 12/16/16 18:59 Last Admin: 12/04/16 17:13 Dose: 100 mls/hr Sodium Chloride (Sodium Chloride 0.9%) 1,000 mls @ 25 mls/hr IV .Q24H [facility] Last Admin: 12/03/16 14:00 Dose: Not Given Insulin Detemir (Levemir) 6 units SC HS [facility] Last Admin: 12/04/16 22:01 Dose: 6 units Insulin Human Lispro (Humalog) 4 units SC AC [facility] Last Admin: 12/05/16 09:23 Dose: 4 units Lidocaine (Lidoderm) 1 ea TD DAILY [facility] Last Admin: 12/05/16 09:25 Dose: 1 ea Nystatin (Nystop Topical Powder) 1 applic TOP BID [facility] Last Admin: 12/05/16 09:22 Dose: 1 applic Ondansetron HCl (Zofran Inj) 4 mg IVP Q6 PRN PRN Reason: Nausea/Vomiting Last Admin: 09/19/16 10:26 Dose: 4 mg Pantoprazole Sodium (Protonix Ec Tab) 40 mg PO DAILY [facility] Last Admin: 12/05/16 09:26 Dose: 40 mg Sennosides (Senokot Tab) 25.8 mg PO [facility] Last Admin: 12/04/16 22:02 Dose: 25.8 mg Sevelamer HCl (Renagel) 1,600 mg PO TID [facility] Last Admin: 12/05/16 09:23 Dose: 1,600 mg Topiramate (Topamax) 50 mg PO BID [facility] Last Admin: 12/05/16 09:30 Dose: 50 mg Vitamin B Complex/Vit C/Folic Acid (Nephro-Ajay) 1 tab PO DAILY [facility] Last Admin: 12/05/16 09:26 Dose: 1 tab - Labs Labs: 12/02/16 13:05 12/02/16 13:05 PT 15.3 Seconds (9.8-13.1) H 12/02/16 13:05 INR 1.4 (0.9-1.2) H 12/02/16 13:05 APTT 37.0 Seconds (25.6-37.1) 12/02/16 13:05 - Constitutional Appears: No Acute Distress - Head Exam Head Exam: ATRAUMATIC, NORMAL INSPECTION, NORMOCEPHALIC - Eye Exam Eye Exam: EOMI, Normal appearance, PERRL Pupil Exam: NORMAL ACCOMODATION, PERRL - ENT Exam ENT Exam: Mucous Membranes Moist, Normal Exam - Neck Exam Neck Exam: Full ROM, Normal Inspection. absent: Lymphadenopathy - Respiratory Exam Respiratory Exam: Clear to Ausculation Bilateral, NORMAL BREATHING PATTERN - Cardiovascular Exam Cardiovascular Exam: REGULAR RHYTHM, +S1, +S2. absent: Murmur - GI/Abdominal Exam GI & Abdominal Exam: Soft, Normal Bowel Sounds. absent: Distended, Firm, Guarding, Rigid, Tenderness - Exam Exam: NORMAL INSPECTION - Extremities Exam Extremities Exam: Full ROM, Normal Capillary Refill, Normal Inspection. absent : Joint Swelling, Pedal Edema - Neurological Exam Neurological Exam: Alert, Awake, CN II-XII Intact, Normal Gait, Oriented x3 - Psychiatric Exam Psychiatric exam: Normal Affect, Normal Mood - Skin Skin Exam: Dry, Normal Color, Warm Assessment and Plan - Assessment and Plan (Free Text) Assessment: POD 2 s/p bka washout and wound vac Right BKA VAC is on and working. Continue current treatment, antibiotic coverage, local wound care - VAC to the BKA stump and Santyl to patellar wound. plan to change VAC Friday Will DW Dr. Mccormack <Raffy Mccormack - Last Filed: 12/06/16 15:59> Objective - Vital Signs/Intake and Output Vital Signs (last 24 hours): Temp Pulse Resp BP Pulse Ox 98.1 F 114 H 18 137/78 97 12/06/16 07:31 12/06/16 07:31 12/06/16 07:31 12/06/16 07:31 12/06/16 07:31 - Medications Medications: Current Medications Acetaminophen (Tylenol 325mg Tab) 650 mg PO Q4 PRN PRN Reason: Fever >100.4 F Last Admin: 11/21/16 00:44 Dose: 650 mg Acetaminophen (Tylenol 325mg Tab) 650 mg PO Q4 PRN PRN Reason: Pain, moderate (4-7) Last Admin: 09/16/16 22:34 Dose: 650 mg Albuterol Sulfate (Albuterol 0.083% Inhal Barbie (2.5 Mg/3 Ml) Ud) 2.5 mg INH RQ4 PRN PRN Reason: Shortness of Breath Albuterol/Ipratropium (Duoneb 3 Mg/0.5 Mg (3 Ml) Ud) 3 ml INH RQ4 PRN PRN Reason: Shortness of Breath Last Admin: 11/11/16 07:39 Dose: 3 ml Apixaban (Eliquis) 5 mg PO BID JASPER PRN Reason: Protocol Last Admin: 12/06/16 09:21 Dose: 5 mg Aspirin (Ecotrin) 81 mg PO DAILY [facility] Last Admin: 12/06/16 09:28 Dose: 81 mg Atorvastatin Calcium (Lipitor) 40 mg PO DAILY [facility] Last Admin: 12/06/16 09:23 Dose: 40 mg Benzonatate (Tessalon Perles) 200 mg PO TID PRN PRN Reason: Cough Last Admin: 11/21/16 09:06 Dose: 200 mg Calcium Carbonate (Oscal) 500 mg PO BIDWM [facility] Last Admin: 12/06/16 09:23 Dose: 500 mg Cinacalcet (Sensipar) 30 mg PO DAILY [facility] Last Admin: 12/06/16 09:31 Dose: 30 mg Collagenase (Santyl) 1 applic TOP DAILY [facility] Last Admin: 12/06/16 09:21 Dose: 1 applic Collagenase (Santyl) 1 applic TOP DAILY [facility] Last Admin: 12/06/16 09:29 Dose: Not Given Collagenase (Santyl) 1 applic TOP DAILY [facility] Last Admin: 12/06/16 09:29 Dose: Not Given Diphenhydramine HCl (Benadryl) 25 mg PO Q6 PRN PRN Reason: Itching / Pruritus Last Admin: 11/12/16 08:34 Dose: 25 mg Docusate Sodium (Colace) 100 mg PO BID [facility] Last Admin: 12/06/16 09:23 Dose: 100 mg Epoetin Tha (Procrit) 20,000 unit IV MWF [facility] Last Admin: 12/06/16 09:29 Dose: Not Given Ergocalciferol (Drisdol 50,000 Intl Units Cap) 1 cap PO WED [facility] Last Admin: 12/04/16 09:30 Dose: 1 cap Fluconazole (Diflucan) 100 mg PO DAILY [facility] Last Admin: 12/06/16 09:21 Dose: 100 mg Gabapentin (Neurontin) 300 mg PO TID [facility] Last Admin: 12/06/16 12:45 Dose: 300 mg Hydrocortisone (Anusol-Hc) 1 applic [place] BID PRN PRN Reason: Inflammation Hydromorphone HCl (Dilaudid) 1 mg IVP Q2H PRN PRN Reason: Pain, severe (8-10) Last Admin: 12/06/16 11:01 Dose: 1 mg Meropenem 500 mg/ Sodium (Chloride) 100 mls @ 100 mls/hr IVPB DAILY@0100 [facility] Last Admin: 12/06/16 00:32 Dose: 100 mls/hr Gentamicin Sulfate/Sodium Chloride (Gentamicin 100mg/100ml Ns) 100 mg in 100 mls @ 100 mls/hr IVPB MWF [facility] Last Admin: 12/06/16 09:25 Dose: 100 mls/hr Tigecycline 25 mg/ Sodium (Chloride) 100 mls @ 100 mls/hr IVPB Q12 [facility] Last Admin: 12/06/16 09:30 Dose: Not Given Sodium Chloride (Sodium Chloride 0.45%) 500 mls @ 10 mls/hr IV .Q24H [facility] Last Admin: 12/05/16 17:24 Dose: 10 mls/hr Daptomycin 650 mg/ Sodium (Chloride) 100 mls @ 100 mls/hr IVPB MWF@1800 [facility] Stop: 12/16/16 18:59 Last Admin: 12/04/16 17:13 Dose: 100 mls/hr Sodium Chloride (Sodium Chloride 0.9%) 1,000 mls @ 25 mls/hr IV .Q24H [facility] Last Admin: 12/06/16 12:41 Dose: Not Given Insulin Detemir (Levemir) 6 units SC HS [facility] Last Admin: 12/05/16 21:02 Dose: 6 units Insulin Human Lispro (Humalog) 4 units SC AC [facility] Last Admin: 12/06/16 12:42 Dose: 4 units Lidocaine (Lidoderm) 1 ea TD DAILY [facility] Last Admin: 12/06/16 09:18 Dose: 1 ea Nystatin (Nystop Topical Powder) 1 applic TOP BID [facility] Last Admin: 12/06/16 09:30 Dose: 1 applic Ondansetron HCl (Zofran Inj) 4 mg IVP Q6 PRN PRN Reason: Nausea/Vomiting Last Admin: 09/19/16 10:26 Dose: 4 mg Pantoprazole Sodium (Protonix Ec Tab) 40 mg PO DAILY [facility] Last Admin: 12/06/16 08:58 Dose: 40 mg Sennosides (Senokot Tab) 25.8 mg PO HS [facility] Last Admin: 12/05/16 21:02 Dose: 25.8 mg Sevelamer HCl (Renagel) 1,600 mg PO TID [facility] Last Admin: 12/06/16 12:40 Dose: 1,600 mg Topiramate (Topamax) 50 mg PO BID [facility] Last Admin: 12/06/16 09:24 Dose: 50 mg Vitamin B Complex/Vit C/Folic Acid (Nephro-Ajay) 1 tab PO DAILY [facility] Last Admin: 12/06/16 09:22 Dose: 1 tab - Labs Labs: 12/06/16 11:30 12/06/16 11:30 PT 15.3 Seconds (9.8-13.1) H 12/02/16 13:05 INR 1.4 (0.9-1.2) H 12/02/16 13:05 APTT 37.0 Seconds (25.6-37.1) 12/02/16 13:05 Assessment and Plan - Assessment and Plan (Free Text) Plan: Agree with resident physician's note. Continue current care and local wound care.
--- NOTE | 2016-12-05 14:44 | CP.PCM.PN ---
Subjective - Date & Time of Evaluation Date of Evaluation: 12/05/16 Time of Evaluation: 14:39 - Subjective Subjective: Patient is sitting up in wheelchair. Feels a little tired, otherwise OK. Wound vac changed by Dr. Mccormack today. The right BK wound shows good granulatio tissue. Wound vac will be changed on 12/[address] Mccormack. The right patellar wound is fibrous, so Santyl will be applied daily. The wound culture shows continued growth of Klebsiella pn. However, this is sensitive to tigacycline and to gentamicin, both of which to patient is receiving. She also gets IV meropenem and daptomycin and po fluconazole. Physical and occupational therapy are to continue. DM controlled. Objective - Vital Signs/Intake and Output Vital Signs (last 24 hours): Temp Pulse Resp BP Pulse Ox 97.7 F 109 H 18 127/67 100 12/05/16 07:30 12/05/16 07:30 12/05/16 07:30 12/05/16 07:30 12/05/16 07:30 - Medications Medications: Current Medications Acetaminophen (Tylenol 325mg Tab) 650 mg PO Q4 PRN PRN Reason: Fever >100.4 F Last Admin: 11/21/16 00:44 Dose: 650 mg Acetaminophen (Tylenol 325mg Tab) 650 mg PO Q4 PRN PRN Reason: Pain, moderate (4-7) Last Admin: 09/16/16 22:34 Dose: 650 mg Albuterol Sulfate (Albuterol 0.083% Inhal Barbie (2.5 Mg/3 Ml) Ud) 2.5 mg INH RQ4 PRN PRN Reason: Shortness of Breath Albuterol/Ipratropium (Duoneb 3 Mg/0.5 Mg (3 Ml) Ud) 3 ml INH RQ4 PRN PRN Reason: Shortness of Breath Last Admin: 11/11/16 07:39 Dose: 3 ml Apixaban (Eliquis) 5 mg PO BID [facility] PRN Reason: Protocol Last Admin: 12/05/16 09:25 Dose: 5 mg Aspirin (Ecotrin) 81 mg PO DAILY [facility] Last Admin: 12/05/16 09:26 Dose: 81 mg Atorvastatin Calcium (Lipitor) 40 mg PO DAILY [facility] Last Admin: 12/05/16 09:26 Dose: 40 mg Benzonatate (Tessalon Perles) 200 mg PO TID PRN PRN Reason: Cough Last Admin: 11/21/16 09:06 Dose: 200 mg Calcium Carbonate (Oscal) 500 mg PO BIDWM [facility] Last Admin: 12/05/16 08:00 Dose: 500 mg Cinacalcet (Sensipar) 30 mg PO DAILY [facility] Last Admin: 12/05/16 09:26 Dose: 30 mg Collagenase (Santyl) 1 applic TOP DAILY [facility] Last Admin: 12/05/16 09:23 Dose: 1 applic Collagenase (Santyl) 1 applic TOP DAILY [facility] Last Admin: 12/05/16 09:30 Dose: 1 applic Collagenase (Santyl) 1 applic TOP DAILY [facility] Diphenhydramine HCl (Benadryl) 25 mg PO Q6 PRN PRN Reason: Itching / Pruritus Last Admin: 11/12/16 08:34 Dose: 25 mg Docusate Sodium (Colace) 100 mg PO BID [facility] Last Admin: 12/05/16 09:26 Dose: 100 mg Epoetin Tha (Procrit) 20,[facility] Last Admin: 12/04/16 16:33 Dose: Not Given Ergocalciferol (Drisdol 50,000 Intl Units Cap) 1 cap PO WED [facility] Last Admin: 12/04/16 09:30 Dose: 1 cap Fluconazole (Diflucan) 100 mg PO DAILY [facility] Last Admin: 12/05/16 09:27 Dose: 100 mg Gabapentin (Neurontin) 300 mg PO TID [facility] Last Admin: 12/05/16 12:57 Dose: 300 mg Hydrocortisone (Anusol-Hc) 1 applic [place] BID PRN PRN Reason: Inflammation Hydromorphone HCl (Dilaudid) 1 mg IVP Q2H PRN PRN Reason: Pain, severe (8-10) Last Admin: 12/05/16 13:37 Dose: 1 mg Meropenem 500 mg/ Sodium (Chloride) 100 mls @ 100 mls/hr IVPB DAILY@0100 [facility] Last Admin: 12/05/16 01:43 Dose: 100 mls/hr Gentamicin Sulfate/Sodium Chloride (Gentamicin 100mg/100ml Ns) 100 mg in 100 mls @ 100 mls/hr IVPB MWF [facility] Last Admin: 12/04/16 16:32 Dose: 100 mls/hr Tigecycline 25 mg/ Sodium (Chloride) 100 mls @ 100 mls/hr IVPB Q12 [facility] Last Admin: 12/05/16 09:30 Dose: 100 mls/hr Sodium Chloride (Sodium Chloride 0.45%) 500 mls @ 10 mls/hr IV .Q24H [facility] Last Admin: 12/03/16 14:02 Dose: Not Given Daptomycin 650 mg/ Sodium (Chloride) 100 mls @ 100 mls/hr IVPB MWF@1800 [facility] Stop: 12/16/16 18:59 Last Admin: 12/04/16 17:13 Dose: 100 mls/hr Sodium Chloride (Sodium Chloride 0.9%) 1,000 mls @ 25 mls/hr IV .Q24H [facility] Last Admin: 12/03/16 14:00 Dose: Not Given Insulin Detemir (Levemir) 6 units SC [facility] Last Admin: 12/04/16 22:01 Dose: 6 units Insulin Human Lispro (Humalog) 4 units SC AC [facility] Last Admin: 12/05/16 12:12 Dose: 4 units Lidocaine (Lidoderm) 1 ea TD DAILY [facility] Last Admin: 12/05/16 09:25 Dose: 1 ea Nystatin (Nystop Topical Powder) 1 applic TOP BID [facility] Last Admin: 12/05/16 09:22 Dose: 1 applic Ondansetron HCl (Zofran Inj) 4 mg IVP Q6 PRN PRN Reason: Nausea/Vomiting Last Admin: 09/19/16 10:26 Dose: 4 mg Pantoprazole Sodium (Protonix Ec Tab) 40 mg PO DAILY [facility] Last Admin: 12/05/16 09:26 Dose: 40 mg Sennosides (Senokot Tab) 25.8 mg PO [facility] Last Admin: 12/04/16 22:02 Dose: 25.8 mg Sevelamer HCl (Renagel) 1,600 mg PO TID [facility] Last Admin: 12/05/16 12:57 Dose: 1,600 mg Topiramate (Topamax) 50 mg PO BID [facility] Last Admin: 12/05/16 09:30 Dose: 50 mg Vitamin B Complex/Vit C/Folic Acid (Nephro-Ajay) 1 tab PO DAILY [facility] Last Admin: 12/05/16 09:26 Dose: 1 tab - Labs Labs: 12/02/16 13:05 12/02/16 13:05 PT 15.3 Seconds (9.8-13.1) H 12/02/16 13:05 INR 1.4 (0.9-1.2) H 12/02/16 13:05 APTT 37.0 Seconds (25.6-37.1) 12/02/16 13:05 Microbiology 12/03/16 10:55 Other: Please Indicate Gram Stain - Final 12/03/16 10:55 Other: Please Indicate Wound Culture - Sensit Klebsiella Pneumoniae Ssp Pneu MDR but sensitive to gentamicin and tigacycline. - Constitutional Appears: No Acute Distress - Head Exam Head Exam: NORMAL INSPECTION - Eye Exam Eye Exam: Normal appearance - ENT Exam ENT Exam: Mucous Membranes Moist - Respiratory Exam Respiratory Exam: Clear to Ausculation Bilateral, NORMAL BREATHING PATTERN - Cardiovascular Exam Cardiovascular Exam: REGULAR RHYTHM, +S1, +S2 - GI/Abdominal Exam GI & Abdominal Exam: Soft, Normal Bowel Sounds - Extremities Exam Additional comments: See subjective for decription of R residual limb wounds. L femoral PICC line intact. All other extremities as before. - Back Exam Back Exam: NORMAL INSPECTION - Neurological Exam Neurological Exam: Alert, Awake, CN II-XII Intact, Oriented x3 - Psychiatric Exam Psychiatric exam: Normal Affect, Normal Mood - Skin Skin Exam: Dry, Normal Color Assessment and Plan (1) Status post below knee amputation of right lower extremity Assessment & Plan: Improved appearance of the wound is a positive. Persistent positive wound culture is a concern. Will discuss with Dr. Lemon. Continue present treatment. Restart O T and P T. Status: Acute (2) ESRD (end stage renal disease) on dialysis Status: Chronic (3) DM type 2 (diabetes mellitus, type 2) Status: Chronic (4) Coagulopathy Status: Chronic (5) Peripheral arterial occlusive disease Status: Chronic
--- NOTE | 2016-12-05 15:35 | CP.PCM.PN ---
Subjective - Date & Time of Evaluation Date of Evaluation: 12/05/16 Time of Evaluation: 15:33 - Subjective Subjective: Follow up Nephrology Consultation Note Assessment/Plan: End stage renal disease on hemodialysis (MWF) via permacath: Will plan for dialysis tomorrow. No Acute need today. continue with Nephrovite 1 tab/day. Anemia: PRBC as needed. On MARTHA as Epogen 20,000 with HD. last Hb 10.3 TSAT 73% and ferritin >1000. Hyperphosphatemia: continue with current meds as renagel 1600 TID Secondary hyperparathyroidism with Vit D Deficiency: continue with sensipar 30 mg/day. Last PTH level 423. Hypertension controlled: BP mostly on low side Glycemic control, Dialysis consistent diet Further work up/management as per primary team. 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 Dose meds/antibiotics for ESRD status. Avoid fleets enema/magnesium based laxatives. Thanks for allowing me to participate in care of your patient. Will follow patient with you. Please call if any Qs Dr Hernan Andino Office: [phone] Subjective: Noted events overnight. Denies chest pain, palpitation, shortness of breath. 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 obese Vitals reviewed and noted as below Lungs: Normal respiratory rate/effort. Breath sounds bilateral equal and clear Heart: Normal rate. s1s2 normal. No rub or gallop. Extremities: s/p Rt BKA, hx of left BKA. Neurological: Patient is alert, awake and oriented to person, place and time. No focal deficit. Strength bilateral appropriate and equal Skin: Warm and dry. Normal turgor. No rash. Palpitation: Normal elasticity for age Abdomen: Abdomen is soft. Bowel sounds +. There is no abdominal tenderness, no guarding/rigidity or organomegaly. she is obese : kidney or bladder not palpable Access: permacath Labs/imaging reviewed. Past medical history, past surgical history, family history, social history, allergy reviewed Objective - Vital Signs/Intake and Output Vital Signs (last 24 hours): Temp Pulse Resp BP Pulse Ox 97.7 F 109 H 18 127/67 100 12/05/16 07:30 12/05/16 07:30 12/05/16 07:30 12/05/16 07:30 12/05/16 07:30 - Medications Medications: Current Medications Acetaminophen (Tylenol 325mg Tab) 650 mg PO Q4 PRN PRN Reason: Fever >100.4 F Last Admin: 11/21/16 00:44 Dose: 650 mg Acetaminophen (Tylenol 325mg Tab) 650 mg PO Q4 PRN PRN Reason: Pain, moderate (4-7) Last Admin: 09/16/16 22:34 Dose: 650 mg Albuterol Sulfate (Albuterol 0.083% Inhal Barbie (2.5 Mg/3 Ml) Ud) 2.5 mg INH RQ4 PRN PRN Reason: Shortness of Breath Albuterol/Ipratropium (Duoneb 3 Mg/0.5 Mg (3 Ml) Ud) 3 ml INH RQ4 PRN PRN Reason: Shortness of Breath Last Admin: 11/11/16 07:39 Dose: 3 ml Apixaban (Eliquis) 5 mg PO BID JASPER PRN Reason: Protocol Last Admin: 12/05/16 09:25 Dose: 5 mg Aspirin (Ecotrin) 81 mg PO DAILY [facility] Last Admin: 12/05/16 09:26 Dose: 81 mg Atorvastatin Calcium (Lipitor) 40 mg PO DAILY [facility] Last Admin: 12/05/16 09:26 Dose: 40 mg Benzonatate (Tessalon Perles) 200 mg PO TID PRN PRN Reason: Cough Last Admin: 11/21/16 09:06 Dose: 200 mg Calcium Carbonate (Oscal) 500 mg PO BIDWM [facility] Last Admin: 12/05/16 08:00 Dose: 500 mg Cinacalcet (Sensipar) 30 mg PO DAILY [facility] Last Admin: 12/05/16 09:26 Dose: 30 mg Collagenase (Santyl) 1 applic TOP DAILY [facility] Last Admin: 12/05/16 09:23 Dose: 1 applic Collagenase (Santyl) 1 applic TOP DAILY [facility] Last Admin: 12/05/16 09:30 Dose: 1 applic Collagenase (Santyl) 1 applic TOP DAILY [facility] Diphenhydramine HCl (Benadryl) 25 mg PO Q6 PRN PRN Reason: Itching / Pruritus Last Admin: 11/12/16 08:34 Dose: 25 mg Docusate Sodium (Colace) 100 mg PO BID [facility] Last Admin: 12/05/16 09:26 Dose: 100 mg Epoetin Tha (Procrit) 20,000 unit IV MWF [facility] Last Admin: 12/04/16 16:33 Dose: Not Given Ergocalciferol (Drisdol 50,000 Intl Units Cap) 1 cap PO WED [facility] Last Admin: 12/04/16 09:30 Dose: 1 cap Fluconazole (Diflucan) 100 mg PO DAILY [facility] Last Admin: 12/05/16 09:27 Dose: 100 mg Gabapentin (Neurontin) 300 mg PO TID [facility] Last Admin: 12/05/16 12:57 Dose: 300 mg Hydrocortisone (Anusol-Hc) 1 applic IA BID PRN PRN Reason: Inflammation Hydromorphone HCl (Dilaudid) 1 mg IVP Q2H PRN PRN Reason: Pain, severe (8-10) Last Admin: 12/05/16 13:37 Dose: 1 mg Meropenem 500 mg/ Sodium (Chloride) 100 mls @ 100 mls/hr IVPB DAILY@0100 [facility] Last Admin: 12/05/16 01:43 Dose: 100 mls/hr Gentamicin Sulfate/Sodium Chloride (Gentamicin 100mg/100ml Ns) 100 mg in 100 mls @ 100 mls/hr IVPB MWF [facility] Last Admin: 12/04/16 16:32 Dose: 100 mls/hr Tigecycline 25 mg/ Sodium (Chloride) 100 mls @ 100 mls/hr IVPB Q12 [facility] Last Admin: 12/05/16 09:30 Dose: 100 mls/hr Sodium Chloride (Sodium Chloride 0.45%) 500 mls @ 10 mls/hr IV .Q24H [facility] Last Admin: 12/03/16 14:02 Dose: Not Given Daptomycin 650 mg/ Sodium (Chloride) 100 mls @ 100 mls/hr IVPB MWF@1800 [facility] Stop: 12/16/16 18:59 Last Admin: 12/04/16 17:13 Dose: 100 mls/hr Sodium Chloride (Sodium Chloride 0.9%) 1,000 mls @ 25 mls/hr IV .Q24H [facility] Last Admin: 12/03/16 14:00 Dose: Not Given Insulin Detemir (Levemir) 6 units SC HS [facility] Last Admin: 12/04/16 22:01 Dose: 6 units Insulin Human Lispro (Humalog) 4 units SC AC [facility] Last Admin: 12/05/16 12:12 Dose: 4 units Lidocaine (Lidoderm) 1 ea TD DAILY [facility] Last Admin: 12/05/16 09:25 Dose: 1 ea Nystatin (Nystop Topical Powder) 1 applic TOP BID [facility] Last Admin: 12/05/16 09:22 Dose: 1 applic Ondansetron HCl (Zofran Inj) 4 mg IVP Q6 PRN PRN Reason: Nausea/Vomiting Last Admin: 09/19/16 10:26 Dose: 4 mg Pantoprazole Sodium (Protonix Ec Tab) 40 mg PO DAILY [facility] Last Admin: 12/05/16 09:26 Dose: 40 mg Sennosides (Senokot Tab) 25.8 mg PO HS [facility] Last Admin: 12/04/16 22:02 Dose: 25.8 mg Sevelamer HCl (Renagel) 1,600 mg PO TID [facility] Last Admin: 12/05/16 12:57 Dose: 1,600 mg Topiramate (Topamax) 50 mg PO BID [facility] Last Admin: 12/05/16 09:30 Dose: 50 mg Vitamin B Complex/Vit C/Folic Acid (Nephro-Ajay) 1 tab PO DAILY [facility] Last Admin: 12/05/16 09:26 Dose: 1 tab - Labs Labs: 12/02/16 13:05 12/02/16 13:05 PT 15.3 Seconds (9.8-13.1) H 12/02/16 13:05 INR 1.4 (0.9-1.2) H 12/02/16 13:05 APTT 37.0 Seconds (25.6-37.1) 12/02/16 13:05
--- NOTE | 2016-12-05 19:53 | PN ---
DATE: 12/05/2016 ROOM: 661 This is a 46-year-old female with recent uncontrolled type 2 insulin requiring diabetes, now being followed closely for metabolic management. Her glycemic profile has improved remarkably, especially both operatively as noted. She underwent a recent right below knee amputation for severe underlying osteomyelitis and is currently undergoing deep debridement of the stump and also has ongoing IV antibiotics as given. Her latest chemistry showed a BUN of 31, sodium 139, potassium 3.4, chloride 99, CO2 29, glucose 97, and creatinine 3.6. So at this time, we will continue the same low dose basal and bolus insulin regimen as given with Levemir given at 6 units subcutaneously at bedtime daily as ordered. We will continue the Humalog given at 4 units subcutaneously t.i.d. before meals as ordered. We will titrate incremental as indicated to optimize metabolic control. We will follow with you. Irene Ambrose MD
[2016-12-05] MEDS: Insulin Detemir 100 Units/ml Inj SC SCH (21:02)
[2016-12-06] MEDS: Meropenem 500 MG in Sodium Chloride 0.9% 100 ML IVPB SCH (00:32)
--- NOTE | 2016-12-06 07:31 | CP.PCM.PN ---
<[place] - Last Filed: 12/06/16 07:29> Subjective - Date & Time of Evaluation Date of Evaluation: 12/06/16 Time of Evaluation: 07:29 - Subjective Subjective: Surgery for Dr. Mccormack Pt s&yahir NOLAN. Pt resting comfortably. Wound vac in place. Objective - Vital Signs/Intake and Output Vital Signs (last 24 hours): Temp Pulse Resp BP Pulse Ox 97.8 F 103 H 18 107/55 L 97 12/06/16 00:54 12/06/16 00:54 12/06/16 00:54 12/06/16 00:54 12/06/16 00:54 - Medications Medications: Current Medications Acetaminophen (Tylenol 325mg Tab) 650 mg PO Q4 PRN PRN Reason: Fever >100.4 F Last Admin: 11/21/16 00:44 Dose: 650 mg Acetaminophen (Tylenol 325mg Tab) 650 mg PO Q4 PRN PRN Reason: Pain, moderate (4-7) Last Admin: 09/16/16 22:34 Dose: 650 mg Albuterol Sulfate (Albuterol 0.083% Inhal Barbie (2.5 Mg/3 Ml) Ud) 2.5 mg INH RQ4 PRN PRN Reason: Shortness of Breath Albuterol/Ipratropium (Duoneb 3 Mg/0.5 Mg (3 Ml) Ud) 3 ml INH RQ4 PRN PRN Reason: Shortness of Breath Last Admin: 11/11/16 07:39 Dose: 3 ml Apixaban (Eliquis) 5 mg PO BID JASPER PRN Reason: Protocol Last Admin: 12/05/16 17:19 Dose: 5 mg Aspirin (Ecotrin) 81 mg PO DAILY [facility] Last Admin: 12/05/16 09:26 Dose: 81 mg Atorvastatin Calcium (Lipitor) 40 mg PO DAILY [facility] Last Admin: 12/05/16 09:26 Dose: 40 mg Benzonatate (Tessalon Perles) 200 mg PO TID PRN PRN Reason: Cough Last Admin: 11/21/16 09:06 Dose: 200 mg Calcium Carbonate (Oscal) 500 mg PO BIDWM [facility] Last Admin: 12/05/16 17:20 Dose: 500 mg Cinacalcet (Sensipar) 30 mg PO DAILY [facility] Last Admin: 12/05/16 09:26 Dose: 30 mg Collagenase (Santyl) 1 applic TOP DAILY [facility] Last Admin: 12/05/16 09:23 Dose: 1 applic Collagenase (Santyl) 1 applic TOP DAILY [facility] Last Admin: 12/05/16 09:30 Dose: 1 applic Collagenase (Santyl) 1 applic TOP DAILY [facility] Diphenhydramine HCl (Benadryl) 25 mg PO Q6 PRN PRN Reason: Itching / Pruritus Last Admin: 11/12/16 08:34 Dose: 25 mg Docusate Sodium (Colace) 100 mg PO BID [facility] Last Admin: 12/05/16 17:17 Dose: 100 mg [facility]poetin [facility]a ([facility]) [facility] Last Admin: 12/04/16 16:33 Dose: Not Given Ergocalciferol (Drisdol 50,000 Intl Units Cap) 1 cap PO WED [facility] Last Admin: 12/04/16 09:30 Dose: 1 cap Fluconazole (Diflucan) 100 mg PO DAILY [facility] Last Admin: 12/05/16 09:27 Dose: 100 mg Gabapentin (Neurontin) 300 mg PO TID [facility] Last Admin: 12/05/16 17:17 Dose: 300 mg Hydrocortisone (Anusol-Hc) 1 applic AL BID PRN PRN Reason: Inflammation Hydromorphone HCl (Dilaudid) 1 mg IVP Q2H PRN PRN Reason: Pain, severe (8-10) Last Admin: 12/06/16 00:29 Dose: 1 mg Meropenem 500 mg/ Sodium (Chloride) 100 mls @ 100 mls/hr IVPB DAILY@0100 [facility] Last Admin: 12/06/16 00:32 Dose: 100 mls/hr Gentamicin Sulfate/Sodium Chloride (Gentamicin 100mg/100ml Ns) 100 mg in 100 mls @ 100 mls/hr IVPB MWF [facility] Last Admin: 12/04/16 16:32 Dose: 100 mls/hr Tigecycline 25 mg/ Sodium (Chloride) 100 mls @ 100 mls/hr IVPB Q12 [facility] Last Admin: 12/05/16 21:01 Dose: 100 mls/hr Sodium Chloride (Sodium Chloride 0.45%) 500 mls @ 10 mls/hr IV .Q24H [facility] Last Admin: 12/05/16 17:24 Dose: 10 mls/hr Daptomycin 650 mg/ Sodium (Chloride) 100 mls @ 100 mls/hr IVPB MWF@1800 [facility] Stop: 12/16/16 18:59 Last Admin: 12/04/16 17:13 Dose: 100 mls/hr Sodium Chloride (Sodium Chloride 0.9%) 1,000 mls @ 25 mls/hr IV .Q24H [facility] Last Admin: 12/03/16 14:00 Dose: Not Given Insulin Detemir (Levemir) 6 units SC HS [facility] Last Admin: 12/05/16 21:02 Dose: 6 units Insulin Human Lispro (Humalog) 4 units SC AC [facility] Last Admin: 12/05/16 16:13 Dose: 4 units Lidocaine (Lidoderm) 1 ea TD DAILY [facility] Last Admin: 12/05/16 09:25 Dose: 1 ea Nystatin (Nystop Topical Powder) 1 applic TOP BID [facility] Last Admin: 12/05/16 17:20 Dose: 1 applic Ondansetron HCl (Zofran Inj) 4 mg IVP Q6 PRN PRN Reason: Nausea/Vomiting Last Admin: 09/19/16 10:26 Dose: 4 mg Pantoprazole Sodium (Protonix Ec Tab) 40 mg PO DAILY [facility] Last Admin: 12/05/16 09:26 Dose: 40 mg Sennosides (Senokot Tab) 25.8 mg PO [facility] Last Admin: 12/05/16 21:02 Dose: 25.8 mg Sevelamer HCl (Renagel) 1,600 mg PO TID [facility] Last Admin: 12/05/16 17:16 Dose: 1,600 mg Topiramate (Topamax) 50 mg PO BID [facility] Last Admin: 12/05/16 17:23 Dose: 50 mg Vitamin B Complex/Vit C/Folic Acid (Nephro-Ajay) 1 tab PO DAILY [facility] Last Admin: 12/05/16 09:26 Dose: 1 tab - Labs Labs: 12/02/16 13:05 12/02/16 13:05 PT 15.3 Seconds (9.8-13.1) H 12/02/16 13:05 INR 1.4 (0.9-1.2) H 12/02/16 13:05 APTT 37.0 Seconds (25.6-37.1) 12/02/16 13:05 - Constitutional Appears: No Acute Distress - Head Exam Head Exam: ATRAUMATIC, NORMAL INSPECTION, NORMOCEPHALIC - Eye Exam Eye Exam: EOMI, Normal appearance, PERRL Pupil Exam: NORMAL ACCOMODATION, PERRL - ENT Exam ENT Exam: Mucous Membranes Moist, Normal Exam - Neck Exam Neck Exam: Full ROM, Normal Inspection. absent: Lymphadenopathy - Respiratory Exam Respiratory Exam: Clear to Ausculation Bilateral, NORMAL BREATHING PATTERN - Cardiovascular Exam Cardiovascular Exam: REGULAR RHYTHM, +S1, +S2. absent: Murmur - GI/Abdominal Exam GI & Abdominal Exam: Soft, Normal Bowel Sounds. absent: Distended, Firm, Guarding, Rigid, Tenderness - Exam Exam: NORMAL INSPECTION - Extremities Exam Extremities Exam: absent: Full ROM, Normal Inspection, Tenderness Additional comments: b/l bka. R stump has wound vac. no leak. - Neurological Exam Neurological Exam: Alert, Awake, CN II-XII Intact, Oriented x3 - Psychiatric Exam Psychiatric exam: Normal Affect, Normal Mood - Skin Skin Exam: Dry, Intact, Normal Color, Warm Assessment and Plan - Assessment and Plan (Free Text) Assessment: POD 3 s/p bka washout and wound vac Right BKA VAC is on and working. Continue current treatment, antibiotic coverage, local wound care - VAC to the BKA stump and Santyl to patellar wound. plan to change VAC Friday Will DW Dr. Mccormack <Raffy Mccormack - Last Filed: 12/06/16 15:56> Objective - Vital Signs/Intake and Output Vital Signs (last 24 hours): Temp Pulse Resp BP Pulse Ox 98.1 F 114 H 18 137/78 97 12/06/16 07:31 12/06/16 07:31 12/06/16 07:31 12/06/16 07:31 12/06/16 07:31 - Medications Medications: Current Medications Acetaminophen (Tylenol 325mg Tab) 650 mg PO Q4 PRN PRN Reason: Fever >100.4 F Last Admin: 11/21/16 00:44 Dose: 650 mg Acetaminophen (Tylenol 325mg Tab) 650 mg PO Q4 PRN PRN Reason: Pain, moderate (4-7) Last Admin: 09/16/16 22:34 Dose: 650 mg Albuterol Sulfate (Albuterol 0.083% Inhal Barbie (2.5 Mg/3 Ml) Ud) 2.5 mg INH RQ4 PRN PRN Reason: Shortness of Breath Albuterol/Ipratropium (Duoneb 3 Mg/0.5 Mg (3 Ml) Ud) 3 ml INH RQ4 PRN PRN Reason: Shortness of Breath Last Admin: 11/11/16 07:39 Dose: 3 ml Apixaban (Eliquis) 5 mg PO BID JASPER PRN Reason: Protocol Last Admin: 12/06/16 09:21 Dose: 5 mg Aspirin (Ecotrin) 81 mg PO DAILY [facility] Last Admin: 12/06/16 09:28 Dose: 81 mg Atorvastatin Calcium (Lipitor) 40 mg PO DAILY [facility] Last Admin: 12/06/16 09:23 Dose: 40 mg Benzonatate (Tessalon Perles) 200 mg PO TID PRN PRN Reason: Cough Last Admin: 11/21/16 09:06 Dose: 200 mg Calcium Carbonate (Oscal) 500 mg PO BIDWM [facility] Last Admin: 12/06/16 09:23 Dose: 500 mg Cinacalcet (Sensipar) 30 mg PO DAILY [facility] Last Admin: 12/06/16 09:31 Dose: 30 mg Collagenase (Santyl) 1 applic TOP DAILY [facility] Last Admin: 12/06/16 09:21 Dose: 1 applic Collagenase (Santyl) 1 applic TOP DAILY [facility] Last Admin: 12/06/16 09:29 Dose: Not Given Collagenase (Santyl) 1 applic TOP DAILY [facility] Last Admin: 12/06/16 09:29 Dose: Not Given Diphenhydramine HCl (Benadryl) 25 mg PO Q6 PRN PRN Reason: Itching / Pruritus Last Admin: 11/12/16 08:34 Dose: 25 mg Docusate Sodium (Colace) 100 mg PO BID [facility] Last Admin: 12/06/16 09:23 Dose: 100 mg Epoetin Tha (Procrit) 20,000 unit IV MWF [facility] Last Admin: 12/06/16 09:29 Dose: Not Given Ergocalciferol (Drisdol 50,000 Intl Units Cap) 1 cap PO WED [facility] Last Admin: 12/04/16 09:30 Dose: 1 cap Fluconazole (Diflucan) 100 mg PO DAILY [facility] Last Admin: 12/06/16 09:21 Dose: 100 mg Gabapentin (Neurontin) 300 mg PO TID [facility] Last Admin: 12/06/16 12:45 Dose: 300 mg Hydrocortisone (Anusol-Hc) 1 applic AL BID PRN PRN Reason: Inflammation Hydromorphone HCl (Dilaudid) 1 mg IVP Q2H PRN PRN Reason: Pain, severe (8-10) Last Admin: 12/06/16 11:01 Dose: 1 mg Meropenem 500 mg/ Sodium (Chloride) 100 mls @ 100 mls/hr IVPB DAILY@0100 [facility] Last Admin: 12/06/16 00:32 Dose: 100 mls/hr Gentamicin Sulfate/Sodium Chloride (Gentamicin 100mg/100ml Ns) 100 mg in 100 mls @ 100 mls/hr IVPB MWF [facility] Last Admin: 12/06/16 09:25 Dose: 100 mls/hr Tigecycline 25 mg/ Sodium (Chloride) 100 mls @ 100 mls/hr IVPB Q12 [facility] Last Admin: 12/06/16 09:30 Dose: Not Given Sodium Chloride (Sodium Chloride 0.45%) 500 mls @ 10 mls/hr IV .Q24H [facility] Last Admin: 12/05/16 17:24 Dose: 10 mls/hr Daptomycin 650 mg/ Sodium (Chloride) 100 mls @ 100 mls/hr IVPB MWF@1800 [facility] Stop: 12/16/16 18:59 Last Admin: 12/04/16 17:13 Dose: 100 mls/hr Sodium Chloride (Sodium Chloride 0.9%) 1,000 mls @ 25 mls/hr IV .Q24H [facility] Last Admin: 12/06/16 12:41 Dose: Not Given Insulin Detemir (Levemir) 6 units SC HS [facility] Last Admin: 12/05/16 21:02 Dose: 6 units Insulin Human Lispro (Humalog) 4 units SC AC [facility] Last Admin: 12/06/16 12:42 Dose: 4 units Lidocaine (Lidoderm) 1 ea TD DAILY [facility] Last Admin: 12/06/16 09:18 Dose: 1 ea Nystatin (Nystop Topical Powder) 1 applic TOP BID [facility] Last Admin: 12/06/16 09:30 Dose: 1 applic Ondansetron HCl (Zofran Inj) 4 mg IVP Q6 PRN PRN Reason: Nausea/Vomiting Last Admin: 09/19/16 10:26 Dose: 4 mg Pantoprazole Sodium (Protonix Ec Tab) 40 mg PO DAILY [facility] Last Admin: 12/06/16 08:58 Dose: 40 mg Sennosides (Senokot Tab) 25.8 mg PO HS [facility] Last Admin: 12/05/16 21:02 Dose: 25.8 mg Sevelamer HCl (Renagel) 1,600 mg PO TID [facility] Last Admin: 12/06/16 12:40 Dose: 1,600 mg Topiramate (Topamax) 50 mg PO BID [facility] Last Admin: 12/06/16 09:24 Dose: 50 mg Vitamin B Complex/Vit C/Folic Acid (Nephro-Ajay) 1 tab PO DAILY [facility] Last Admin: 12/06/16 09:22 Dose: 1 tab - Labs Labs: 12/06/16 11:30 12/06/16 11:30 PT 15.3 Seconds (9.8-13.1) H 12/02/16 13:05 INR 1.4 (0.9-1.2) H 12/02/16 13:05 APTT 37.0 Seconds (25.6-37.1) 12/02/16 13:05 Assessment and Plan - Assessment and Plan (Free Text) Plan: Patient seen and chart reviewed. Patient has no immediate complaints and is clinically at her baseline. Right BKA VAC is on and working well - will plan to examine the BKA wound and change VAC on Friday next week. Continue Santyl and observation of the patellar wound. Continue supportive care.
[2016-12-06] MEDS: Epoetin Alfa 20000 UNIT/ML Inj IV SCH ×2 (08:17→09:29)
[2016-12-06] MEDS: Pantoprazole 40 mg EC Tab PO SCH (08:58)
[2016-12-06] MEDS: Insulin Lispro (humaLOG) 100 Units/ml Inj SC SCH ×3 (09:16→17:13)
[2016-12-06] MEDS: Lidocaine 5% Patch TD SCH (09:18)
[2016-12-06] MEDS: Santyl Collagenase OINTMENT TOP SCH ×3 (09:21→09:29)
[2016-12-06] MEDS: Multivitamin Vitamin B Complex (Nephro-Vite) Tab PO SCH (09:22)
[2016-12-06] MEDS: Gentamicin 100mg/100ml NS 100 MG/100 ML BAG IVPB SCH (09:25)
[2016-12-06] MEDS: TIGECYCLINE IVPB SCH ×2 (09:30→21:03)
[2016-12-06] MEDS: SODIUM CHLORIDE 0.9% IVPB SCH ×2 (09:30→21:03)
--- NOTE | 2016-12-06 10:22 | CP.PCM.PN ---
Subjective - Date & Time of Evaluation Date of Evaluation: 12/06/16 Time of Evaluation: 09:45 - Subjective Subjective: Currently on dialysis Comfortable Objective - Vital Signs/Intake and Output Vital Signs (last 24 hours): Temp Pulse Resp BP Pulse Ox 98.1 F 114 H 18 137/78 97 12/06/16 07:31 12/06/16 07:31 12/06/16 07:31 12/06/16 07:31 12/06/16 07:31 - Medications Medications: Current Medications Acetaminophen (Tylenol 325mg Tab) 650 mg PO Q4 PRN PRN Reason: Fever >100.4 F Last Admin: 11/21/16 00:44 Dose: 650 mg Acetaminophen (Tylenol 325mg Tab) 650 mg PO Q4 PRN PRN Reason: Pain, moderate (4-7) Last Admin: 09/16/16 22:34 Dose: 650 mg Albuterol Sulfate (Albuterol 0.083% Inhal Barbie (2.5 Mg/3 Ml) Ud) 2.5 mg INH RQ4 PRN PRN Reason: Shortness of Breath Albuterol/Ipratropium (Duoneb 3 Mg/0.5 Mg (3 Ml) Ud) 3 ml INH RQ4 PRN PRN Reason: Shortness of Breath Last Admin: 11/11/16 07:39 Dose: 3 ml Apixaban (Eliquis) 5 mg PO BID [facility] PRN Reason: Protocol Last Admin: 12/06/16 09:21 Dose: 5 mg Aspirin (Ecotrin) 81 mg PO DAILY [facility] Last Admin: 12/06/16 09:28 Dose: 81 mg Atorvastatin Calcium (Lipitor) 40 mg PO DAILY [facility] Last Admin: 12/06/16 09:23 Dose: 40 mg Benzonatate (Tessalon Perles) 200 mg PO TID PRN PRN Reason: Cough Last Admin: 11/21/16 09:06 Dose: 200 mg Calcium Carbonate (Oscal) 500 mg PO BIDWM [facility] Last Admin: 12/06/16 09:23 Dose: 500 mg Cinacalcet (Sensipar) 30 mg PO DAILY [facility] Last Admin: 12/06/16 09:31 Dose: 30 mg Collagenase (Santyl) 1 applic TOP DAILY [facility] Last Admin: 12/06/16 09:21 Dose: 1 applic Collagenase (Santyl) 1 applic TOP DAILY [facility] Last Admin: 12/06/16 09:29 Dose: Not Given Collagenase (Santyl) 1 applic TOP DAILY [facility] Last Admin: 12/06/16 09:29 Dose: Not Given Diphenhydramine HCl (Benadryl) 25 mg PO Q6 PRN PRN Reason: Itching / Pruritus Last Admin: 11/12/16 08:34 Dose: 25 mg Docusate Sodium (Colace) 100 mg PO BID [facility] Last Admin: 12/06/16 09:23 Dose: 100 mg Epoetin Tha (Procrit) 20,000 unit IV MWF [facility] Last Admin: 12/06/16 09:29 Dose: Not Given Ergocalciferol (Drisdol 50,000 Intl Units Cap) 1 cap PO WED [facility] Last Admin: 12/04/16 09:30 Dose: 1 cap Fluconazole (Diflucan) 100 mg PO DAILY [facility] Last Admin: 12/06/16 09:21 Dose: 100 mg Gabapentin (Neurontin) 300 mg PO TID [facility] Last Admin: 12/06/16 09:22 Dose: 300 mg Hydrocortisone (Anusol-Hc) 1 applic [place] BID PRN PRN Reason: Inflammation Hydromorphone HCl (Dilaudid) 1 mg IVP Q2H PRN PRN Reason: Pain, severe (8-10) Last Admin: 12/06/16 07:40 Dose: 1 mg Meropenem 500 mg/ Sodium (Chloride) 100 mls @ 100 mls/hr IVPB DAILY@0100 [facility] Last Admin: 12/06/16 00:32 Dose: 100 mls/hr Gentamicin Sulfate/Sodium Chloride (Gentamicin 100mg/100ml Ns) 100 mg in 100 mls @ 100 mls/hr IVPB MWF [facility] Last Admin: 12/06/16 09:25 Dose: 100 mls/hr Tigecycline 25 mg/ Sodium (Chloride) 100 mls @ 100 mls/hr IVPB Q12 [facility] Last Admin: 12/06/16 09:30 Dose: Not Given Sodium Chloride (Sodium Chloride 0.45%) 500 mls @ 10 mls/hr IV .Q24H [facility] Last Admin: 12/05/16 17:24 Dose: 10 mls/hr Daptomycin 650 mg/ Sodium (Chloride) 100 mls @ 100 mls/hr IVPB MWF@1800 [facility] Stop: 12/16/16 18:59 Last Admin: 12/04/16 17:13 Dose: 100 mls/hr Sodium Chloride (Sodium Chloride 0.9%) 1,000 mls @ 25 mls/hr IV .Q24H [facility] Last Admin: 12/03/16 14:00 Dose: Not Given Insulin Detemir (Levemir) 6 units SC HS [facility] Last Admin: 12/05/16 21:02 Dose: 6 units Insulin Human Lispro (Humalog) 4 units SC AC [facility] Last Admin: 12/06/16 09:16 Dose: 4 units Lidocaine (Lidoderm) 1 ea TD DAILY [facility] Last Admin: 12/06/16 09:18 Dose: 1 ea Nystatin (Nystop Topical Powder) 1 applic TOP BID [facility] Last Admin: 12/06/16 09:30 Dose: 1 applic Ondansetron HCl (Zofran Inj) 4 mg IVP Q6 PRN PRN Reason: Nausea/Vomiting Last Admin: 09/19/16 10:26 Dose: 4 mg Pantoprazole Sodium (Protonix Ec Tab) 40 mg PO DAILY [facility] Last Admin: 12/06/16 08:58 Dose: 40 mg Sennosides (Senokot Tab) 25.8 mg PO HS [facility] Last Admin: 12/05/16 21:02 Dose: 25.8 mg Sevelamer HCl (Renagel) 1,600 mg PO TID [facility] Last Admin: 12/06/16 09:20 Dose: 1,600 mg Topiramate (Topamax) 50 mg PO BID [facility] Last Admin: 12/06/16 09:24 Dose: 50 mg Vitamin B Complex/Vit C/Folic Acid (Nephro-Ajay) 1 tab PO DAILY [facility] Last Admin: 12/06/16 09:22 Dose: 1 tab - Labs Labs: 12/02/16 13:05 12/02/16 13:05 PT 15.3 Seconds (9.8-13.1) H 12/02/16 13:05 INR 1.4 (0.9-1.2) H 12/02/16 13:05 APTT 37.0 Seconds (25.6-37.1) 12/02/16 13:05 - Respiratory Exam Additional comments: Lungs clear - Cardiovascular Exam Cardiovascular Exam: REGULAR RHYTHM - Extremities Exam Additional comments: Rt stump wound dressed. Wound vac in place Assessment and Plan - Assessment and Plan (Free Text) Assessment: ESRD on HD Rt leg OM S/P debridement of wound IDDM with complications Plan: Has been stable on dialysis Continue HD per schedule
[2016-12-06 12:37] LABS: HEMATOCRIT 35.4 % (34.0-47.0); MEAN CELL VOLUME 101.3 fl (81.0-99.0); MEAN CORPUSCULAR HGB CONC 30.6 g/dL (33.0-37.0); RED CELL DISTRIBUTION WIDTH 21.7 % (11.5-14.5); WHITE BLOOD COUNT 9.1 K/uL (4.8-10.8)
[2016-12-06] MEDS: Sodium Chloride 0.9% 1,000 ML IV SCH (12:41)
[2016-12-06 12:47] LABS: PHOSPHOROUS 4.8 mg/dl (2.5-4.5)
[2016-12-06 12:51] LABS: POTASSIUM 5.2 MMOL/L (3.6-5.0)
--- NOTE | 2016-12-06 15:41 | CP.PCM.PN ---
Subjective - Date & Time of Evaluation Date of Evaluation: 12/06/16 Time of Evaluation: 15:40 - Subjective Subjective: This a 46 y/o F with recent uncontrolled, type II IDDM, now recently undergoing a deep debridement procedure of her right, BKA stump with underlying osteomyelitis, as noted. Her glycemic levels are fluctuating as her oral intake is also quite variable and suboptimal at this time. The glucose levels have raised from 87 to 107 and 109 mg/dL. Objective - Vital Signs/Intake and Output Vital Signs (last 24 hours): Temp Pulse Resp BP Pulse Ox 98.1 F 114 H 18 137/78 97 12/06/16 07:31 12/06/16 07:31 12/06/16 07:31 12/06/16 07:31 12/06/16 07:31 - Medications Medications: Current Medications Acetaminophen (Tylenol 325mg Tab) 650 mg PO Q4 PRN PRN Reason: Fever >100.4 F Last Admin: 11/21/16 00:44 Dose: 650 mg Acetaminophen (Tylenol 325mg Tab) 650 mg PO Q4 PRN PRN Reason: Pain, moderate (4-7) Last Admin: 09/16/16 22:34 Dose: 650 mg Albuterol Sulfate (Albuterol 0.083% Inhal Barbie (2.5 Mg/3 Ml) Ud) 2.5 mg INH RQ4 PRN PRN Reason: Shortness of Breath Albuterol/Ipratropium (Duoneb 3 Mg/0.5 Mg (3 Ml) Ud) 3 ml INH RQ4 PRN PRN Reason: Shortness of Breath Last Admin: 11/11/16 07:39 Dose: 3 ml Apixaban (Eliquis) 5 mg PO BID [facility] PRN Reason: Protocol Last Admin: 12/06/16 09:21 Dose: 5 mg Aspirin (Ecotrin) 81 mg PO DAILY [facility] Last Admin: 12/06/16 09:28 Dose: 81 mg Atorvastatin Calcium (Lipitor) 40 mg PO DAILY [facility] Last Admin: 12/06/16 09:23 Dose: 40 mg Benzonatate (Tessalon Perles) 200 mg PO TID PRN PRN Reason: Cough Last Admin: 11/21/16 09:06 Dose: 200 mg Calcium Carbonate (Oscal) [facility] Last Admin: 12/06/16 09:23 Dose: 500 mg Cinacalcet (Sensipar) 30 mg PO DAILY [facility] Last Admin: 12/06/16 09:31 Dose: 30 mg Collagenase (Santyl) 1 applic TOP DAILY [facility] Last Admin: 12/06/16 09:21 Dose: 1 applic Collagenase (Santyl) 1 applic TOP DAILY [facility] Last Admin: 12/06/16 09:29 Dose: Not Given Collagenase (Santyl) 1 applic TOP DAILY [facility] Last Admin: 12/06/16 09:29 Dose: Not Given Diphenhydramine HCl (Benadryl) 25 mg PO Q6 PRN PRN Reason: Itching / Pruritus Last Admin: 11/12/16 08:34 Dose: 25 mg Docusate Sodium (Colace) 100 mg PO BID [facility] Last Admin: 12/06/16 09:23 Dose: 100 mg Epoetin Tha (Procrit) 20,000 unit IV MWF [facility] Last Admin: 12/06/16 09:29 Dose: Not Given Ergocalciferol (Drisdol 50,000 Intl Units Cap) 1 cap PO WED [facility] Last Admin: 12/04/16 09:30 Dose: 1 cap Fluconazole (Diflucan) 100 mg PO DAILY [facility] Last Admin: 12/06/16 09:21 Dose: 100 mg Gabapentin (Neurontin) 300 mg PO TID [facility] Last Admin: 12/06/16 12:45 Dose: 300 mg Hydrocortisone (Anusol-Hc) 1 applic [place] BID PRN PRN Reason: Inflammation Hydromorphone HCl (Dilaudid) 1 mg IVP Q2H PRN PRN Reason: Pain, severe (8-10) Last Admin: 12/06/16 11:01 Dose: 1 mg Meropenem 500 mg/ Sodium (Chloride) 100 mls @ 100 mls/hr IVPB DAILY@0100 [facility] Last Admin: 12/06/16 00:32 Dose: 100 mls/hr Gentamicin Sulfate/Sodium Chloride (Gentamicin 100mg/100ml Ns) 100 mg in 100 mls @ 100 mls/hr IVPB MWF [facility] Last Admin: 12/06/16 09:25 Dose: 100 mls/hr Tigecycline 25 mg/ Sodium (Chloride) 100 mls @ 100 mls/hr IVPB Q12 [facility] Last Admin: 12/06/16 09:30 Dose: Not Given Sodium Chloride (Sodium Chloride 0.45%) 500 mls @ 10 mls/hr IV .Q24H [facility] Last Admin: 12/05/16 17:24 Dose: 10 mls/hr Daptomycin 650 mg/ Sodium (Chloride) 100 mls @ 100 mls/hr IVPB MWF@1800 [facility] Stop: 12/16/16 18:59 Last Admin: 12/04/16 17:13 Dose: 100 mls/hr Sodium Chloride (Sodium Chloride 0.9%) 1,000 mls @ 25 mls/hr IV .Q24H [facility] Last Admin: 12/06/16 12:41 Dose: Not Given Insulin Detemir (Levemir) 6 units SC HS [facility] Last Admin: 12/05/16 21:02 Dose: 6 units Insulin Human Lispro (Humalog) 4 units SC AC [facility] Last Admin: 12/06/16 12:42 Dose: 4 units Lidocaine (Lidoderm) 1 ea TD DAILY [facility] Last Admin: 12/06/16 09:18 Dose: 1 ea Nystatin (Nystop Topical Powder) 1 applic TOP BID [facility] Last Admin: 12/06/16 09:30 Dose: 1 applic Ondansetron HCl (Zofran Inj) 4 mg IVP Q6 PRN PRN Reason: Nausea/Vomiting Last Admin: 09/19/16 10:26 Dose: 4 mg Pantoprazole Sodium (Protonix Ec Tab) 40 mg PO DAILY [facility] Last Admin: 12/06/16 08:58 Dose: 40 mg Sennosides (Senokot Tab) 25.8 mg PO [facility] Last Admin: 12/05/16 21:02 Dose: 25.8 mg Sevelamer HCl (Renagel) 1,600 mg PO TID [facility] Last Admin: 12/06/16 12:40 Dose: 1,600 mg Topiramate (Topamax) 50 mg PO BID [facility] Last Admin: 12/06/16 09:24 Dose: 50 mg Vitamin B Complex/Vit C/Folic Acid (Nephro-Ajay) 1 tab PO DAILY [facility] Last Admin: 12/06/16 09:22 Dose: 1 tab - Labs Labs: 12/06/16 11:30 12/06/16 11:30 PT 15.3 Seconds (9.8-13.1) H 12/02/16 13:05 INR 1.4 (0.9-1.2) H 12/02/16 13:05 APTT 37.0 Seconds (25.6-37.1) 12/02/16 13:05 BUN: 73 Sodium: 140 Potassium: 6.0 Chloride: 102 CO2: 24 Glucose: 105 Creatinine: 6.8 Assessment and Plan - Assessment and Plan (Free Text) Plan: At this time, we will continue the modified basal and bolus insulin regimen as given with Levemir given as 6 units sub-q at bedtime daily, as ordered. Will also continue the Humalog given at low dose of 4 units, sub-q BID before meals, as given. Will titrate incrementals indicated to optimize metabolic control. Will follow.
--- NOTE | 2016-12-06 16:31 | CP.PCM.PN ---
Subjective - Date & Time of Evaluation Date of Evaluation: 12/06/16 Time of Evaluation: 16:26 - Subjective Subjective: Patient is sitting up in chair, had hemodialysis this morning and physical therapy this afternoon with emphasis on truncal and upper body strengthening. She is day 3 post- right BK wound and right patellar debridement. The wound vac applied to the BK wound is functioning well with drainage of about 100 cc serosanguinous fluid over the past 24 plus hours. The wound cultue (positive for Klebsiella pn. still) was from the patella, which is being treated with Santyl. Patient continues on iv meropenem, daptomycin, tigacycline, and gentamicin as well as po fluconazole. Dr. Ambrose's note appreciated. DM is being managed with short and long activing insulins. No further vaginal bleeding since previous endometrial ablation by Dr. Larry. Hemoglobin has remained stable around 10. Continues on Eliquis and ASA for coagulopathy and Topamax for previous seizure. Objective - Vital Signs/Intake and Output Vital Signs (last 24 hours): Temp Pulse Resp BP Pulse Ox 98.1 F 114 H 18 137/78 97 12/06/16 07:31 12/06/16 07:31 12/06/16 07:31 12/06/16 07:31 12/06/16 07:31 - Medications Medications: Current Medications Acetaminophen (Tylenol 325mg Tab) 650 mg PO Q4 PRN PRN Reason: Fever >100.4 F Last Admin: 11/21/16 00:44 Dose: 650 mg Acetaminophen (Tylenol 325mg Tab) 650 mg PO Q4 PRN PRN Reason: Pain, moderate (4-7) Last Admin: 09/16/16 22:34 Dose: 650 mg Albuterol Sulfate (Albuterol 0.083% Inhal Barbie (2.5 Mg/3 Ml) Ud) 2.5 mg INH RQ4 PRN PRN Reason: Shortness of Breath Albuterol/Ipratropium (Duoneb 3 Mg/0.5 Mg (3 Ml) Ud) 3 ml INH RQ4 PRN PRN Reason: Shortness of Breath Last Admin: 11/11/16 07:39 Dose: 3 ml Apixaban (Eliquis) 5 mg PO BID [facility] PRN Reason: Protocol Last Admin: 12/06/16 16:18 Dose: 5 mg Aspirin (Ecotrin) 81 mg PO DAILY [facility] Last Admin: 12/06/16 09:28 Dose: 81 mg Atorvastatin Calcium (Lipitor) 40 mg PO DAILY [facility] Last Admin: 12/06/16 09:23 Dose: 40 mg Benzonatate (Tessalon Perles) 200 mg PO TID PRN PRN Reason: Cough Last Admin: 11/21/16 09:06 Dose: 200 mg Calcium Carbonate (Oscal) 500 mg PO BIDWM [facility] Last Admin: 12/06/16 16:19 Dose: 500 mg Cinacalcet (Sensipar) 30 mg PO DAILY [facility] Last Admin: 12/06/16 09:31 Dose: 30 mg Collagenase (Santyl) 1 applic TOP DAILY [facility] Last Admin: 12/06/16 09:21 Dose: 1 applic Collagenase (Santyl) 1 applic TOP DAILY [facility] Last Admin: 12/06/16 09:29 Dose: Not Given Collagenase (Santyl) 1 applic TOP DAILY [facility] Last Admin: 12/06/16 09:29 Dose: Not Given Diphenhydramine HCl (Benadryl) 25 mg PO Q6 PRN PRN Reason: Itching / Pruritus Last Admin: 11/12/16 08:34 Dose: 25 mg Docusate Sodium (Colace) 100 mg PO BID [facility] Last Admin: 12/06/16 16:20 Dose: 100 mg Epoetin Tha (Procrit) 20,000 unit IV MWF [facility] Last Admin: 12/06/16 09:29 Dose: Not Given Ergocalciferol (Drisdol 50,000 Intl Units Cap) 1 cap PO WED [facility] Last Admin: 12/04/16 09:30 Dose: 1 cap Fluconazole (Diflucan) 100 mg PO DAILY [facility] Last Admin: 12/06/16 09:21 Dose: 100 mg Gabapentin (Neurontin) 300 mg PO TID [facility] Last Admin: 12/06/16 16:20 Dose: 300 mg Hydrocortisone (Anusol-Hc) 1 applic [place] BID PRN PRN Reason: Inflammation Hydromorphone HCl (Dilaudid) 1 mg IVP Q2H PRN PRN Reason: Pain, severe (8-10) Last Admin: 12/06/16 11:01 Dose: 1 mg Meropenem 500 mg/ Sodium (Chloride) 100 mls @ 100 mls/hr IVPB DAILY@0100 [facility] Last Admin: 12/06/16 00:32 Dose: 100 mls/hr Gentamicin Sulfate/Sodium Chloride (Gentamicin 100mg/100ml Ns) 100 mg in 100 mls @ 100 mls/hr IVPB MWF [facility] Last Admin: 12/06/16 09:25 Dose: 100 mls/hr Tigecycline 25 mg/ Sodium (Chloride) 100 mls @ 100 mls/hr IVPB Q12 [facility] Last Admin: 12/06/16 09:30 Dose: Not Given Sodium Chloride (Sodium Chloride 0.45%) 500 mls @ 10 mls/hr IV .Q24H [facility] Last Admin: 12/06/16 16:24 Dose: Not Given Daptomycin 650 mg/ Sodium (Chloride) 100 mls @ 100 mls/hr IVPB MWF@1800 [facility] Stop: 12/16/16 18:59 Last Admin: 12/04/16 17:13 Dose: 100 mls/hr Sodium Chloride (Sodium Chloride 0.9%) 1,000 mls @ 25 mls/hr IV .Q24H [facility] Last Admin: 12/06/16 12:41 Dose: Not Given Insulin Detemir (Levemir) 6 units SC [facility] Last Admin: 12/05/16 21:02 Dose: 6 units Insulin Human Lispro (Humalog) 4 units SC AC [facility] Last Admin: 12/06/16 12:42 Dose: 4 units Lidocaine (Lidoderm) 1 ea TD DAILY [facility] Last Admin: 12/06/16 09:18 Dose: 1 ea Nystatin (Nystop Topical Powder) 1 applic TOP BID [facility] Last Admin: 12/06/16 16:16 Dose: 1 applic Ondansetron HCl (Zofran Inj) 4 mg IVP Q6 PRN PRN Reason: Nausea/Vomiting Last Admin: 09/19/16 10:26 Dose: 4 mg Pantoprazole Sodium (Protonix Ec Tab) 40 mg PO DAILY [facility] Last Admin: 12/06/16 08:58 Dose: 40 mg Sennosides (Senokot Tab) 25.8 mg PO HS [facility] Last Admin: 12/05/16 21:02 Dose: 25.8 mg Sevelamer HCl (Renagel) 1,600 mg PO TID [facility] Last Admin: 12/06/16 16:15 Dose: 1,600 mg Topiramate (Topamax) 50 mg PO BID [facility] Last Admin: 12/06/16 16:19 Dose: 50 mg Vitamin B Complex/Vit C/Folic Acid (Nephro-Ajay) 1 tab PO DAILY [facility] Last Admin: 12/06/16 09:22 Dose: 1 tab - Labs Labs: 12/06/16 11:30 12/06/16 11:30 PT 15.3 Seconds (9.8-13.1) H 12/02/16 13:05 INR 1.4 (0.9-1.2) H 12/02/16 13:05 APTT 37.0 Seconds (25.6-37.1) 12/02/16 13:05 - Constitutional Appears: No Acute Distress - Head Exam Head Exam: NORMAL INSPECTION - Eye Exam Eye Exam: Normal appearance - ENT Exam ENT Exam: Mucous Membranes Moist - Neck Exam Neck Exam: Normal Inspection - Respiratory Exam Respiratory Exam: Clear to Ausculation Bilateral, NORMAL BREATHING PATTERN - Cardiovascular Exam Cardiovascular Exam: REGULAR RHYTHM, +S1, +S2 - GI/Abdominal Exam GI & Abdominal Exam: Soft - Extremities Exam Additional comments: Dressings intact right lower extremity. PICC line intact right femoral vein. - Neurological Exam Neurological Exam: Alert, Normal Gait, Oriented x3 - Psychiatric Exam Psychiatric exam: Normal Affect, Normal Mood Assessment and Plan (1) Status post below knee amputation of right lower extremity Assessment & Plan: SEE SUBJECTIVE. Status: Acute (2) ESRD (end stage renal disease) on dialysis Status: Chronic (3) DM type 2 (diabetes mellitus, type 2) Assessment & Plan: SEE SUBJECTIVE Status: Chronic (4) Coagulopathy Status: Chronic (5) Peripheral arterial occlusive disease Status: Chronic
--- NOTE | 2016-12-06 22:01 | PN ---
ENDO FOLLOWUP NOTE Room 661. SUBJECTIVE: This is a 46-year-old female with recent uncontrolled type 2 insulin requiring diabetes, now being followed closely for metabolic management. Her glycemic levels have tremendously improved actually as noted postoperatively following a recent right below-knee amputation. She also has received recent debridement of her stump in the same area because of persistent osteomyelitis as noted. LABORATORY DATA: Her latest chemistry showed a BUN of 69, sodium 140, potassium 5.2, chloride 102, CO2 23, glucose 60 and creatinine is 6.0. So at this time, we actually discontinue both basal and bolus insulin regimen and determine the need switched over to oral hypoglycemic drug therapy as noted. We will titrate incremental as indicated to optimize metabolic control. We will follow her and advise accordingly. Irene Ambrose MD
[2016-12-07] MEDS: Meropenem 500 MG in Sodium Chloride 0.9% 100 ML IVPB SCH (01:06)
[2016-12-07] MEDS: Lidocaine 5% Patch TD SCH (08:56)
[2016-12-07] MEDS: Multivitamin Vitamin B Complex (Nephro-Vite) Tab PO SCH (08:56)
[2016-12-07] MEDS: Pantoprazole 40 mg EC Tab PO SCH (08:57)
[2016-12-07] MEDS: Santyl Collagenase OINTMENT TOP SCH (08:59)
[2016-12-07] MEDS: TIGECYCLINE IVPB SCH ×2 (09:15→20:59)
[2016-12-07] MEDS: SODIUM CHLORIDE 0.9% IVPB SCH ×2 (09:15→20:59)
[2016-12-07] MEDS: Sodium Chloride 0.9% 1,000 ML IV SCH (12:32)
--- NOTE | 2016-12-07 16:32 | CP.PCM.PN ---
Subjective - Date & Time of Evaluation Date of Evaluation: 12/07/16 Time of Evaluation: 16:29 - Subjective Subjective: Patient has had low glucose levels on minimal insulin, so Dr. Ambrose has discontinued all insulin and will be monitoring glucose levels bid (fasting and pre-supper) by arm stick. She may then add an oral agent depending on the results. The patient is comfortable with no pain, dyspnea, cough or fevers. She continues on 4 IV and one po antibiotics. Dr. Mccormack will change the wound vac on the right BK site on 12/09. Daily Santyl dressings to the right patella continue. k Objective - Vital Signs/Intake and Output Vital Signs (last 24 hours): Temp Pulse Resp BP Pulse Ox 98.7 F 106 H 20 91/60 L 97 12/07/16 16:04 12/07/16 16:04 12/07/16 16:04 12/07/16 16:04 12/07/16 16:04 - Medications Medications: Current Medications Acetaminophen (Tylenol 325mg Tab) 650 mg PO Q4 PRN PRN Reason: Fever >100.4 F Last Admin: 11/21/16 00:44 Dose: 650 mg Acetaminophen (Tylenol 325mg Tab) 650 mg PO Q4 PRN PRN Reason: Pain, moderate (4-7) Last Admin: 09/16/16 22:34 Dose: 650 mg Albuterol Sulfate (Albuterol 0.083% Inhal Barbie (2.5 Mg/3 Ml) Ud) 2.5 mg INH RQ4 PRN PRN Reason: Shortness of Breath Albuterol/Ipratropium (Duoneb 3 Mg/0.5 Mg (3 Ml) Ud) 3 ml INH RQ4 PRN PRN Reason: Shortness of Breath Last Admin: 11/11/16 07:39 Dose: 3 ml Apixaban (Eliquis) 5 mg PO BID [facility] PRN Reason: Protocol Last Admin: 12/07/16 08:55 Dose: 5 mg Aspirin (Ecotrin) 81 mg PO DAILY [facility] Last Admin: 12/07/16 08:58 Dose: 81 mg Atorvastatin Calcium (Lipitor) 40 mg PO DAILY [facility] Last Admin: 12/07/16 08:58 Dose: 40 mg Benzonatate (Tessalon Perles) 200 mg PO TID PRN PRN Reason: Cough Last Admin: 11/21/16 09:06 Dose: 200 mg Calcium Carbonate (Oscal) 500 mg PO BIDWM [facility] Last Admin: 12/07/16 08:58 Dose: 500 mg Cinacalcet (Sensipar) 30 mg PO DAILY [facility] Last Admin: 12/07/16 12:31 Dose: 30 mg Collagenase (Santyl) 1 applic TOP DAILY [facility] Last Admin: 12/07/16 08:59 Dose: 1 appl Diphenhydramine HCl (Benadryl) 25 mg PO Q6 PRN PRN Reason: Itching / Pruritus Last Admin: 11/12/16 08:34 Dose: 25 mg Docusate Sodium (Colace) 100 mg PO BID [facility] Last Admin: 12/07/16 08:56 Dose: 100 mg [facility]poetin [facility]a ([facility]crit) [facility] Last Admin: 12/06/16 09:29 Dose: Not Given Ergocalciferol (Drisdol 50,000 Intl Units Cap) 1 cap PO WED [facility] Last Admin: 12/04/16 09:30 Dose: 1 cap Fluconazole (Diflucan) 100 mg PO DAILY [facility] Last Admin: 12/07/16 08:56 Dose: 100 mg Gabapentin (Neurontin) 300 mg PO TID [facility] Last Admin: 12/07/16 12:32 Dose: 300 mg Hydrocortisone (Anusol-Hc) 1 applic [place] BID PRN PRN Reason: Inflammation Hydromorphone HCl (Dilaudid) 1 mg IVP Q2H PRN PRN Reason: Pain, severe (8-10) Last Admin: 12/07/16 14:31 Dose: 1 mg Meropenem 500 mg/ Sodium (Chloride) 100 mls @ 100 mls/hr IVPB DAILY@0100 [facility] Last Admin: 12/07/16 01:06 Dose: 100 mls/hr Gentamicin Sulfate/Sodium Chloride (Gentamicin 100mg/100ml Ns) 100 mg in 100 mls @ 100 mls/hr IVPB MWF [facility] Last Admin: 12/06/16 09:25 Dose: 100 mls/hr Tigecycline 25 mg/ Sodium (Chloride) 100 mls @ 100 mls/hr IVPB Q12 [facility] Last Admin: 12/07/16 09:15 Dose: 100 mls/hr Sodium Chloride (Sodium Chloride 0.45%) 500 mls @ 10 mls/hr IV .Q24H [facility] Last Admin: 12/07/16 15:40 Dose: Not Given Daptomycin 650 mg/ Sodium (Chloride) 100 mls @ 100 mls/hr IVPB MWF@1800 [facility] Stop: 12/16/16 18:59 Last Admin: 12/06/16 19:19 Dose: 100 mls/hr Sodium Chloride (Sodium Chloride 0.9%) 1,000 mls @ 25 mls/hr IV .Q24H [facility] Last Admin: 12/07/16 12:32 Dose: Not Given Lidocaine (Lidoderm) 1 ea TD DAILY [facility] Last Admin: 12/07/16 08:56 Dose: 1 ea Nystatin (Nystop Topical Powder) 1 applic TOP BID [facility] Last Admin: 12/07/16 08:55 Dose: 1 applic Ondansetron HCl (Zofran Inj) 4 mg IVP Q6 PRN PRN Reason: Nausea/Vomiting Last Admin: 09/19/16 10:26 Dose: 4 mg Pantoprazole Sodium (Protonix Ec Tab) 40 mg PO DAILY [facility] Last Admin: 12/07/16 08:57 Dose: 40 mg Sennosides (Senokot Tab) 25.8 mg PO HS [facility] Last Admin: 12/06/16 22:54 Dose: 25.8 mg Sevelamer HCl (Renagel) 1,600 mg PO TID [facility] Last Admin: 12/07/16 12:31 Dose: 1,600 mg Topiramate (Topamax) 50 mg PO BID [facility] Last Admin: 12/07/16 08:56 Dose: 50 mg Vitamin B Complex/Vit C/Folic Acid (Nephro-Ajay) 1 tab PO DAILY [facility] Last Admin: 12/07/16 08:56 Dose: 1 tab - Labs Labs: 12/06/16 11:30 12/06/16 11:30 PT 15.3 Seconds (9.8-13.1) H 12/02/16 13:05 INR 1.4 (0.9-1.2) H 12/02/16 13:05 APTT 37.0 Seconds (25.6-37.1) 12/02/16 13:05 - Constitutional Appears: No Acute Distress - Head Exam Head Exam: NORMAL INSPECTION - Eye Exam Eye Exam: Normal appearance - ENT Exam ENT Exam: Mucous Membranes Moist - Neck Exam Neck Exam: Normal Inspection - Respiratory Exam Respiratory Exam: Clear to Ausculation Bilateral, NORMAL BREATHING PATTERN - Cardiovascular Exam Cardiovascular Exam: REGULAR RHYTHM, +S1, +S2 - GI/Abdominal Exam GI & Abdominal Exam: Soft, Normal Bowel Sounds - Extremities Exam Additional comments: Wound vac in place R BK wound with no leak and less drainage. Right patellar dressing intact. L femoral vein PICC line intact. All other extremities as before. - Back Exam Back Exam: NORMAL INSPECTION - Neurological Exam Neurological Exam: Alert, Oriented x3 - Psychiatric Exam Psychiatric exam: Normal Affect, Normal Mood - Skin Skin Exam: Dry, Normal Color, Warm Assessment and Plan (1) Status post below knee amputation of right lower extremity Assessment & Plan: Making progress. SEE SUBJECTIVE Status: Acute (2) ESRD (end stage renal disease) on dialysis Status: Chronic (3) DM type 2 (diabetes mellitus, type 2) Assessment & Plan: SEE SUBJECTIVE Status: Chronic (4) Coagulopathy Status: Chronic (5) Peripheral arterial occlusive disease Status: Chronic
--- NOTE | 2016-12-07 16:43 | PN ---
ENDO-FOLLOWUP NOTE Room 661 This is a 46-year-old female with recent uncontrolled type 2 insulin-requiring diabetes now with optimal metabolic control and actually has been taken off all insulin therapy and we will observe a glycemic fluctuation and metabolic response there off. Her latest chemistry showed BUN of 59, sodium 140, potassium 5.2, chloride 102, CO2 of 23, glucose 60, and creatinine 6.0. She has remained near optimal in terms of her metabolic control especially postoperatively following a right below-knee amputation for severe underlying osteomyelitis. We will obtain serial chemistries and supplement accordingly as needed. If hyperglycemic levels then we will start her back on the low dose oral hyperglycemic drug therapy given as monotherapy or in combination therapy as indicated. Irene Ambrose MD
[2016-12-08] MEDS: Meropenem 500 MG in Sodium Chloride 0.9% 100 ML IVPB SCH (00:48)
[2016-12-08] MEDS: Lidocaine 5% Patch TD SCH (09:02)
[2016-12-08] MEDS: Multivitamin Vitamin B Complex (Nephro-Vite) Tab PO SCH (09:02)
[2016-12-08] MEDS: Santyl Collagenase OINTMENT TOP SCH (09:03)
[2016-12-08] MEDS: Pantoprazole 40 mg EC Tab PO SCH (09:03)
[2016-12-08] MEDS: SODIUM CHLORIDE 0.9% IVPB SCH ×2 (09:12→20:30)
[2016-12-08] MEDS: TIGECYCLINE IVPB SCH ×2 (09:12→20:30)
--- NOTE | 2016-12-08 12:07 | PN ---
DATE: ENDOCRINOLOGY FOLLOWUP NOTE LOCATION: Room 661 SUBJECTIVE: This is a 46-year-old female with recent uncontrolled type 2 insulin requiring diabetes now improved glycemic profile and has been taken off all basal and bolus insulin regimen as noted. Her oral intake has improved, but still remains valuable at this time. Her latest glucose levels have ranged from 125 to 176 mg/dL. LABORATORY DATA: Her latest chemistry shows a BUN of 59, sodium 140, potassium 5.2, chloride 102, CO2 23, glucose 60, and creatinine 6.0. ASSESSMENT AND PLAN: So at this time, we will restart her on a small dose regimen of oral hypoglycemic therapy with Prandin given at 0.5 mg p.o. t.i.d. before meals to start at lunchtime today as ordered. We will titrate incremental as indicated to optimize metabolic control. We will hold off the resumption of her basal and/or bolus insulin dose regimen for now. We will obtain serum chemistry and supplement accordingly as needed. We will follow. Irene Ambrose MD
[2016-12-08] MEDS: Sodium Chloride 0.9% 1,000 ML IV SCH (12:16)
--- NOTE | 2016-12-08 19:03 | CP.PCM.PN ---
Subjective - Date & Time of Evaluation Date of Evaluation: 12/08/16 Time of Evaluation: 19:02 - Subjective Subjective: Patient is off insulin. Glucoses today ranged from high of 196 to a low of 114. Dr. Ambrose started Prandin 0.5mg tid befoere meals starting today. We wPatill continue to monitor. Patient is in wheelchair "doing her laps" around the hallways, as she puts it. No new complaints. Dr. Mccormack will assess and redress the R BK wound tomorrow. The wound vac remains in place without leaks and will less drainage. The right patellar wound is being treated with Santyl and will also be evaluated tomorrow. She continues on 4 iv and 1 po antibiotics. Sbe continues on anticoagulants and antiseizure medication. For HD tomorrow. Objective - Vital Signs/Intake and Output Vital Signs (last 24 hours): Temp Pulse Resp BP Pulse Ox 98.0 F 109 H 17 100/68 95 12/08/16 16:25 12/08/16 16:25 12/08/16 16:25 12/08/16 16:25 12/08/16 16:25 - Medications Medications: Current Medications Acetaminophen (Tylenol 325mg Tab) 650 mg PO Q4 PRN PRN Reason: Fever >100.4 F Last Admin: 11/21/16 00:44 Dose: 650 mg Acetaminophen (Tylenol 325mg Tab) 650 mg PO Q4 PRN PRN Reason: Pain, moderate (4-7) Last Admin: 09/16/16 22:34 Dose: 650 mg Albuterol Sulfate (Albuterol 0.083% Inhal Barbie (2.5 Mg/3 Ml) Ud) 2.5 mg INH RQ4 PRN PRN Reason: Shortness of Breath Albuterol/Ipratropium (Duoneb 3 Mg/0.5 Mg (3 Ml) Ud) 3 ml INH RQ4 PRN PRN Reason: Shortness of Breath Last Admin: 11/11/16 07:39 Dose: 3 ml Apixaban (Eliquis) 5 mg PO BID [facility] PRN Reason: Protocol Last Admin: 12/08/16 16:40 Dose: 5 mg Aspirin (Ecotrin) 81 mg PO DAILY [facility] Last Admin: 12/08/16 09:02 Dose: 81 mg Atorvastatin Calcium (Lipitor) 40 mg PO DAILY [facility] Last Admin: 12/08/16 09:01 Dose: 40 mg Benzonatate (Tessalon Perles) 200 mg PO TID PRN PRN Reason: Cough Last Admin: 11/21/16 09:06 Dose: 200 mg Calcium Carbonate (Oscal) 500 mg PO BIDWM [facility] Last Admin: 12/08/16 16:40 Dose: 500 mg Cinacalcet (Sensipar) 30 mg PO DAILY [facility] Last Admin: 12/08/16 09:02 Dose: 30 mg Collagenase (Santyl) 1 applic TOP DAILY [facility] Last Admin: 12/08/16 09:03 Dose: 1 appl Diphenhydramine HCl (Benadryl) 25 mg PO Q6 PRN PRN Reason: Itching / Pruritus Last Admin: 11/12/16 08:34 Dose: 25 mg Docusate Sodium (Colace) 100 mg PO BID [facility] Last Admin: 12/08/16 16:40 Dose: 100 mg Epoetin Tha (Procrit) 20,000 unit IV [facility] Last Admin: 12/06/16 09:29 Dose: Not Given Ergocalciferol (Drisdol 50,000 Intl Units Cap) 1 cap PO WED [facility] Last Admin: 12/04/16 09:30 Dose: 1 cap Fluconazole (Diflucan) 100 mg PO DAILY [facility] Last Admin: 12/08/16 09:03 Dose: 100 mg Gabapentin (Neurontin) 300 mg PO TID [facility] Last Admin: 12/08/16 16:39 Dose: 300 mg Hydrocortisone (Anusol-Hc) 1 applic [place] BID PRN PRN Reason: Inflammation Hydromorphone HCl (Dilaudid) 1 mg IVP Q2H PRN PRN Reason: Pain, severe (8-10) Last Admin: 12/08/16 16:48 Dose: 1 mg Meropenem 500 mg/ Sodium (Chloride) 100 mls @ 100 mls/hr IVPB DAILY@0100 [facility] Last Admin: 12/08/16 00:48 Dose: 100 mls/hr Gentamicin Sulfate/Sodium Chloride (Gentamicin 100mg/100ml Ns) 100 mg in 100 mls @ 100 mls/hr IVPB MWF [facility] Last Admin: 12/06/16 09:25 Dose: 100 mls/hr Tigecycline 25 mg/ Sodium (Chloride) 100 mls @ 100 mls/hr IVPB Q12 [facility] Last Admin: 12/08/16 09:12 Dose: 100 mls/hr Sodium Chloride (Sodium Chloride 0.45%) 500 mls @ 10 mls/hr IV .Q24H [facility] Last Admin: 12/08/16 16:41 Dose: Not Given Daptomycin 650 mg/ Sodium (Chloride) 100 mls @ 100 mls/hr IVPB MWF@1800 [facility] Stop: 12/16/16 18:59 Last Admin: 12/06/16 19:19 Dose: 100 mls/hr Sodium Chloride (Sodium Chloride 0.9%) 1,000 mls @ 25 mls/hr IV .Q24H [facility] Last Admin: 12/08/16 12:16 Dose: Not Given Lidocaine (Lidoderm) 1 ea TD DAILY [facility] Last Admin: 12/08/16 09:02 Dose: 1 ea Nystatin (Nystop Topical Powder) 1 applic TOP BID [facility] Last Admin: 12/08/16 16:39 Dose: 1 applic Ondansetron HCl (Zofran Inj) 4 mg IVP Q6 PRN PRN Reason: Nausea/Vomiting Last Admin: 09/19/16 10:26 Dose: 4 mg Pantoprazole Sodium (Protonix Ec Tab) 40 mg PO DAILY [facility] Last Admin: 12/08/16 09:03 Dose: 40 mg Repaglinide (Prandin) 0.5 mg PO TIDAC [facility] Last Admin: 12/08/16 16:40 Dose: 0.5 mg Sennosides (Senokot Tab) 25.8 mg PO HS [facility] Last Admin: 12/07/16 21:04 Dose: 25.8 mg Sevelamer HCl (Renagel) 1,600 mg PO TID [facility] Last Admin: 12/08/16 16:39 Dose: 1,600 mg Topiramate (Topamax) 50 mg PO BID [facility] Last Admin: 12/08/16 16:39 Dose: 50 mg Vitamin B Complex/Vit C/Folic Acid (Nephro-Ajay) 1 tab PO DAILY [facility] Last Admin: 12/08/16 09:02 Dose: 1 tab - Labs Labs: 12/06/16 11:30 12/06/16 11:30 PT 15.3 Seconds (9.8-13.1) H 12/02/16 13:05 INR 1.4 (0.9-1.2) H 12/02/16 13:05 APTT 37.0 Seconds (25.6-37.1) 12/02/16 13:05 Assessment and Plan (1) Status post below knee amputation of right lower extremity Assessment & Plan: Appears to be making progress in wound healing. Await re-evaluation tomorrow. Continues to improve in mobility- but she has a long way to go to being able to transfer, etc. etc. Status: Acute (2) ESRD (end stage renal disease) on dialysis Status: Chronic (3) DM type 2 (diabetes mellitus, type 2) Assessment & Plan: Now on oral agent (Prandin) and will be monitored closely by Dr. Ambrose. Status: Chronic (4) Coagulopathy Status: Chronic (5) Peripheral arterial occlusive disease Status: Chronic
[2016-12-09] MEDS: Meropenem 500 MG in Sodium Chloride 0.9% 100 ML IVPB SCH (01:09)
--- NOTE | 2016-12-09 07:26 | CP.PCM.PN ---
<GermainSb - Last Filed: 12/09/16 07:24> Subjective - Date & Time of Evaluation Date of Evaluation: 12/09/16 Time of Evaluation: 07:24 - Subjective Subjective: Surgery for Dr. Easton Braun s&yahir NOLAN. Denies F/C/N/V. Objective - Vital Signs/Intake and Output Vital Signs (last 24 hours): Temp Pulse Resp BP Pulse Ox 98.2 F 83 20 99/69 L 98 12/09/16 01:03 12/09/16 01:03 12/09/16 01:03 12/09/16 01:03 12/09/16 01:03 - Medications Medications: Current Medications Acetaminophen (Tylenol 325mg Tab) 650 mg PO Q4 PRN PRN Reason: Fever >100.4 F Last Admin: 11/21/16 00:44 Dose: 650 mg Acetaminophen (Tylenol 325mg Tab) 650 mg PO Q4 PRN PRN Reason: Pain, moderate (4-7) Last Admin: 09/16/16 22:34 Dose: 650 mg Albuterol Sulfate (Albuterol 0.083% Inhal Barbie (2.5 Mg/3 Ml) Ud) 2.5 mg INH RQ4 PRN PRN Reason: Shortness of Breath Albuterol/Ipratropium (Duoneb 3 Mg/0.5 Mg (3 Ml) Ud) 3 ml INH RQ4 PRN PRN Reason: Shortness of Breath Last Admin: 11/11/16 07:39 Dose: 3 ml Apixaban (Eliquis) 5 mg PO BID [facility] PRN Reason: Protocol Last Admin: 12/08/16 16:40 Dose: 5 mg Aspirin (Ecotrin) 81 mg PO DAILY [facility] Last Admin: 12/08/16 09:02 Dose: 81 mg Atorvastatin Calcium (Lipitor) 40 mg PO DAILY [facility] Last Admin: 12/08/16 09:01 Dose: 40 mg Benzonatate (Tessalon Perles) 200 mg PO TID PRN PRN Reason: Cough Last Admin: 11/21/16 09:06 Dose: 200 mg Calcium Carbonate (Oscal) 500 mg PO BIDWM [facility] Last Admin: 12/08/16 16:40 Dose: 500 mg Cinacalcet (Sensipar) 30 mg PO DAILY [facility] Last Admin: 12/08/16 09:02 Dose: 30 mg Collagenase (Santyl) 1 applic TOP DAILY [facility] Last Admin: 12/08/16 09:03 Dose: 1 appl Diphenhydramine HCl (Benadryl) 25 mg PO Q6 PRN PRN Reason: Itching / Pruritus Last Admin: 11/12/16 08:34 Dose: 25 mg Docusate Sodium (Colace) 100 mg PO BID [facility] Last Admin: 12/08/16 16:40 Dose: 100 mg Epoetin Tha (Procrit) 20,000 unit IV MWF [facility] Last Admin: 12/06/16 09:29 Dose: Not Given Ergocalciferol (Drisdol 50,000 Intl Units Cap) 1 cap PO WED [facility] Last Admin: 12/04/16 09:30 Dose: 1 cap Fluconazole (Diflucan) 100 mg PO DAILY [facility] Last Admin: 12/08/16 09:03 Dose: 100 mg Gabapentin (Neurontin) 300 mg PO TID [facility] Last Admin: 12/08/16 16:39 Dose: 300 mg Hydrocortisone (Anusol-Hc) 1 applic [place] BID PRN PRN Reason: Inflammation Hydromorphone HCl (Dilaudid) 1 mg IVP Q2H PRN PRN Reason: Pain, severe (8-10) Last Admin: 12/09/16 06:20 Dose: 1 mg Meropenem 500 mg/ Sodium (Chloride) 100 mls @ 100 mls/hr IVPB DAILY@0100 [facility] Last Admin: 12/09/16 01:09 Dose: 100 mls/hr Gentamicin Sulfate/Sodium Chloride (Gentamicin 100mg/100ml Ns) 100 mg in 100 mls @ 100 mls/hr IVPB MWF [facility] Last Admin: 12/06/16 09:25 Dose: 100 mls/hr Tigecycline 25 mg/ Sodium (Chloride) 100 mls @ 100 mls/hr IVPB Q12 [facility] Last Admin: 12/08/16 20:30 Dose: 100 mls/hr Sodium Chloride (Sodium Chloride 0.45%) 500 mls @ 10 mls/hr IV .Q24H [facility] Last Admin: 12/08/16 16:41 Dose: Not Given Daptomycin 650 mg/ Sodium (Chloride) 100 mls @ 100 mls/hr IVPB MWF@1800 [facility] Stop: 12/16/16 18:59 Last Admin: 12/06/16 19:19 Dose: 100 mls/hr Sodium Chloride (Sodium Chloride 0.9%) 1,000 mls @ 25 mls/hr IV .Q24H [facility] Last Admin: 12/08/16 12:16 Dose: Not Given Lidocaine (Lidoderm) 1 ea TD DAILY [facility] Last Admin: 12/08/16 09:02 Dose: 1 ea Nystatin (Nystop Topical Powder) 1 applic TOP BID [facility] Last Admin: 12/08/16 16:39 Dose: 1 applic Ondansetron HCl (Zofran Inj) 4 mg IVP Q6 PRN PRN Reason: Nausea/Vomiting Last Admin: 09/19/16 10:26 Dose: 4 mg Pantoprazole Sodium (Protonix Ec Tab) 40 mg PO DAILY [facility] Last Admin: 12/08/16 09:03 Dose: 40 mg Repaglinide (Prandin) 0.5 mg PO TIDAC [facility] Last Admin: 12/08/16 16:40 Dose: 0.5 mg Sennosides (Senokot Tab) 25.8 mg PO HS [facility] Last Admin: 12/08/16 21:24 Dose: 25.8 mg Sevelamer HCl (Renagel) 1,600 mg PO TID [facility] Last Admin: 12/08/16 16:39 Dose: 1,600 mg Topiramate (Topamax) 50 mg PO BID [facility] Last Admin: 12/08/16 16:39 Dose: 50 mg Vitamin B Complex/Vit C/Folic Acid (Nephro-Ajay) 1 tab PO DAILY [facility] Last Admin: 12/08/16 09:02 Dose: 1 tab - Labs Labs: 12/06/16 11:30 12/06/16 11:30 PT 15.3 Seconds (9.8-13.1) H 12/02/16 13:05 INR 1.4 (0.9-1.2) H 12/02/16 13:05 APTT 37.0 Seconds (25.6-37.1) 12/02/16 13:05 - Constitutional Appears: No Acute Distress - Head Exam Head Exam: ATRAUMATIC, NORMAL INSPECTION, NORMOCEPHALIC - Eye Exam Eye Exam: EOMI, Normal appearance, PERRL Pupil Exam: NORMAL ACCOMODATION, PERRL - ENT Exam ENT Exam: Mucous Membranes Moist, Normal Exam - Neck Exam Neck Exam: Full ROM, Normal Inspection. absent: Lymphadenopathy - Respiratory Exam Respiratory Exam: Clear to Ausculation Bilateral, NORMAL BREATHING PATTERN - Cardiovascular Exam Cardiovascular Exam: REGULAR RHYTHM, +S1, +S2. absent: Murmur - GI/Abdominal Exam GI & Abdominal Exam: Soft, Normal Bowel Sounds. absent: Distended, Firm, Guarding, Tenderness - Extremities Exam Additional comments: b/l BKA. R stump has wound vac. No leak - Neurological Exam Neurological Exam: Alert, Awake, CN II-XII Intact, Oriented x3 - Psychiatric Exam Psychiatric exam: Normal Affect, Normal Mood - Skin Skin Exam: Dry, Intact, Normal Color, Warm Assessment and Plan - Assessment and Plan (Free Text) Assessment: R BKA with wound vac Right BKA VAC is on and working well - will plan to examine the BKA wound and change VAC today. Continue Santyl and observation of the patellar wound. Continue supportive care. Will DW Dr. Mccormack <Raffy Mccormack - Last Filed: 12/09/16 15:27> Objective - Vital Signs/Intake and Output Vital Signs (last 24 hours): Temp Pulse Resp BP Pulse Ox 98.5 F 109 H 20 134/75 100 12/09/16 08:15 12/09/16 08:15 12/09/16 08:15 12/09/16 08:15 12/09/16 08:15 - Medications Medications: Current Medications Acetaminophen (Tylenol 325mg Tab) 650 mg PO Q4 PRN PRN Reason: Fever >100.4 F Last Admin: 11/21/16 00:44 Dose: 650 mg Acetaminophen (Tylenol 325mg Tab) 650 mg PO Q4 PRN PRN Reason: Pain, moderate (4-7) Last Admin: 09/16/16 22:34 Dose: 650 mg Albuterol Sulfate (Albuterol 0.083% Inhal Barbie (2.5 Mg/3 Ml) Ud) 2.5 mg INH RQ4 PRN PRN Reason: Shortness of Breath Albuterol/Ipratropium (Duoneb 3 Mg/0.5 Mg (3 Ml) Ud) 3 ml INH RQ4 PRN PRN Reason: Shortness of Breath Last Admin: 11/11/16 07:39 Dose: 3 ml Apixaban (Eliquis) 5 mg PO BID [facility] PRN Reason: Protocol Last Admin: 12/09/16 08:56 Dose: 5 mg Aspirin (Ecotrin) 81 mg PO DAILY [facility] Last Admin: 12/09/16 08:58 Dose: 81 mg Atorvastatin Calcium (Lipitor) 40 mg PO DAILY [facility] Last Admin: 12/09/16 08:57 Dose: 40 mg Benzonatate (Tessalon Perles) 200 mg PO TID PRN PRN Reason: Cough Last Admin: 11/21/16 09:06 Dose: 200 mg Calcium Carbonate (Oscal) 500 mg PO BIDWM [facility] Last Admin: 12/09/16 08:58 Dose: 500 mg Cinacalcet (Sensipar) 30 mg PO DAILY [facility] Last Admin: 12/09/16 08:56 Dose: 30 mg Collagenase (Santyl) 1 applic TOP DAILY [facility] Last Admin: 12/09/16 08:57 Dose: 1 appl Diphenhydramine HCl (Benadryl) 25 mg PO Q6 PRN PRN Reason: Itching / Pruritus Last Admin: 11/12/16 08:34 Dose: 25 mg Docusate Sodium (Colace) 100 mg PO BID [facility] Last Admin: 12/09/16 08:57 Dose: 100 mg Epoetin Tha (Procrit) 20,000 unit IV MWF [facility] Last Admin: 12/06/16 09:29 Dose: Not Given Ergocalciferol (Drisdol 50,000 Intl Units Cap) 1 cap PO WED [facility] Last Admin: 12/04/16 09:30 Dose: 1 cap Fluconazole (Diflucan) 100 mg PO DAILY [facility] Last Admin: 12/09/16 09:00 Dose: 100 mg Gabapentin (Neurontin) 300 mg PO TID [facility] Last Admin: 12/09/16 12:20 Dose: 300 mg Hydrocortisone (Anusol-Hc) 1 applic [place] BID PRN PRN Reason: Inflammation Hydromorphone HCl (Dilaudid) 1 mg IVP Q2H PRN PRN Reason: Pain, severe (8-10) Last Admin: 12/09/16 12:19 Dose: 1 mg Meropenem 500 mg/ Sodium (Chloride) 100 mls @ 100 mls/hr IVPB DAILY@0100 [facility] Last Admin: 12/09/16 01:09 Dose: 100 mls/hr Gentamicin Sulfate/Sodium Chloride (Gentamicin 100mg/100ml Ns) 100 mg in 100 mls @ 100 mls/hr IVPB MWF [facility] Last Admin: 12/09/16 11:55 Dose: 100 mls/hr Tigecycline 25 mg/ Sodium (Chloride) 100 mls @ 100 mls/hr IVPB Q12 [facility] Last Admin: 12/09/16 08:55 Dose: 100 mls/hr Sodium Chloride (Sodium Chloride 0.45%) 500 mls @ 10 mls/hr IV .Q24H [facility] Last Admin: 12/08/16 16:41 Dose: Not Given Daptomycin 650 mg/ Sodium (Chloride) 100 mls @ 100 mls/hr IVPB MWF@1800 [facility] Stop: 12/16/16 18:59 Last Admin: 12/06/16 19:19 Dose: 100 mls/hr Sodium Chloride (Sodium Chloride 0.9%) 1,000 mls @ 25 mls/hr IV .Q24H [facility] Last Admin: 12/09/16 12:21 Dose: Not Given Lidocaine (Lidoderm) 1 ea TD DAILY [facility] Last Admin: 12/09/16 09:10 Dose: 1 ea Nystatin (Nystop Topical Powder) 1 applic TOP BID [facility] Last Admin: 12/09/16 08:58 Dose: 1 applic Ondansetron HCl (Zofran Inj) 4 mg IVP Q6 PRN PRN Reason: Nausea/Vomiting Last Admin: 09/19/16 10:26 Dose: 4 mg Pantoprazole Sodium (Protonix Ec Tab) 40 mg PO DAILY [facility] Last Admin: 12/09/16 08:56 Dose: 40 mg Repaglinide (Prandin) 0.5 mg PO TIDAC [facility] Last Admin: 12/09/16 11:56 Dose: 0.5 mg Sennosides (Senokot Tab) 25.8 mg PO HS [facility] Last Admin: 12/08/16 21:24 Dose: 25.8 mg Sevelamer HCl (Renagel) 1,600 mg PO TID [facility] Last Admin: 12/09/16 12:20 Dose: 1,600 mg Topiramate (Topamax) 50 mg PO BID [facility] Last Admin: 12/09/16 08:56 Dose: 50 mg Vitamin B Complex/Vit C/Folic Acid (Nephro-Ajay) 1 tab PO DAILY [facility] Last Admin: 12/09/16 08:57 Dose: 1 tab - Labs Labs: 12/06/16 11:30 12/06/16 11:30 PT 15.3 Seconds (9.8-13.1) H 12/02/16 13:05 INR 1.4 (0.9-1.2) H 12/02/16 13:05 APTT 37.0 Seconds (25.6-37.1) 12/02/16 13:05 Assessment and Plan - Assessment and Plan (Free Text) Plan: Patient seen and examined. VAC changed at bedside. Right BKA stump is granulating well with wound looking clean without signs of infection or tissue necrosis. Continue current wound care. Change VAC at bedside in 3-4 days. Continue Santyl to right knee patellar wound.
[2016-12-09] MEDS: SODIUM CHLORIDE 0.9% IVPB SCH ×2 (08:55→21:12)
[2016-12-09] MEDS: TIGECYCLINE IVPB SCH ×2 (08:55→21:12)
[2016-12-09] MEDS: Pantoprazole 40 mg EC Tab PO SCH (08:56)
[2016-12-09] MEDS: Santyl Collagenase OINTMENT TOP SCH (08:57)
[2016-12-09] MEDS: Multivitamin Vitamin B Complex (Nephro-Vite) Tab PO SCH (08:57)
[2016-12-09] MEDS: Lidocaine 5% Patch TD SCH (09:10)
[2016-12-09] MEDS: Gentamicin 100mg/100ml NS 100 MG/100 ML BAG IVPB SCH (11:55)
--- NOTE | 2016-12-09 11:56 | CP.PCM.PN ---
Subjective - Date & Time of Evaluation Date of Evaluation: 12/09/16 Time of Evaluation: 11:15 - Subjective Subjective: SWitting up in recliner No complaints Objective - Vital Signs/Intake and Output Vital Signs (last 24 hours): Temp Pulse Resp BP Pulse Ox 98.5 F 109 H 20 134/75 100 12/09/16 08:15 12/09/16 08:15 12/09/16 08:15 12/09/16 08:15 12/09/16 08:15 - Medications Medications: Current Medications Acetaminophen (Tylenol 325mg Tab) 650 mg PO Q4 PRN PRN Reason: Fever >100.4 F Last Admin: 11/21/16 00:44 Dose: 650 mg Acetaminophen (Tylenol 325mg Tab) 650 mg PO Q4 PRN PRN Reason: Pain, moderate (4-7) Last Admin: 09/16/16 22:34 Dose: 650 mg Albuterol Sulfate (Albuterol 0.083% Inhal Barbie (2.5 Mg/3 Ml) Ud) 2.5 mg INH RQ4 PRN PRN Reason: Shortness of Breath Albuterol/Ipratropium (Duoneb 3 Mg/0.5 Mg (3 Ml) Ud) 3 ml INH RQ4 PRN PRN Reason: Shortness of Breath Last Admin: 11/11/16 07:39 Dose: 3 ml Apixaban (Eliquis) 5 mg PO BID [facility] PRN Reason: Protocol Last Admin: 12/09/16 08:56 Dose: 5 mg Aspirin (Ecotrin) 81 mg PO DAILY [facility] Last Admin: 12/09/16 08:58 Dose: 81 mg Atorvastatin Calcium (Lipitor) 40 mg PO DAILY [facility] Last Admin: 12/09/16 08:57 Dose: 40 mg Benzonatate (Tessalon Perles) 200 mg PO TID PRN PRN Reason: Cough Last Admin: 11/21/16 09:06 Dose: 200 mg Calcium Carbonate (Oscal) 500 mg PO BIDWM [facility] Last Admin: 12/09/16 08:58 Dose: 500 mg Cinacalcet (Sensipar) 30 mg PO DAILY [facility] Last Admin: 12/09/16 08:56 Dose: 30 mg Collagenase (Santyl) 1 applic TOP DAILY [facility] Last Admin: 12/09/16 08:57 Dose: 1 appl Diphenhydramine HCl (Benadryl) 25 mg PO Q6 PRN PRN Reason: Itching / Pruritus Last Admin: 11/12/16 08:34 Dose: 25 mg Docusate Sodium (Colace) 100 mg PO BID [facility] Last Admin: 12/09/16 08:57 Dose: 100 mg Epoetin Tha (Procrit) 20,000 unit IV MWF [facility] Last Admin: 12/06/16 09:29 Dose: Not Given Ergocalciferol (Drisdol 50,000 Intl Units Cap) 1 cap PO WED [facility] Last Admin: 12/04/16 09:30 Dose: 1 cap Fluconazole (Diflucan) 100 mg PO DAILY [facility] Last Admin: 12/09/16 09:00 Dose: 100 mg Gabapentin (Neurontin) 300 mg PO TID [facility] Last Admin: 12/09/16 08:58 Dose: 300 mg Hydrocortisone (Anusol-Hc) 1 applic [place] BID PRN PRN Reason: Inflammation Hydromorphone HCl (Dilaudid) 1 mg IVP Q2H PRN PRN Reason: Pain, severe (8-10) Last Admin: 12/09/16 09:09 Dose: 1 mg Meropenem 500 mg/ Sodium (Chloride) 100 mls @ 100 mls/hr IVPB DAILY@0100 [facility] Last Admin: 12/09/16 01:09 Dose: 100 mls/hr Gentamicin Sulfate/Sodium Chloride (Gentamicin 100mg/100ml Ns) 100 mg in 100 mls @ 100 mls/hr IVPB MWF [facility] Last Admin: 12/06/16 09:25 Dose: 100 mls/hr Tigecycline 25 mg/ Sodium (Chloride) 100 mls @ 100 mls/hr IVPB Q12 [facility] Last Admin: 12/09/16 08:55 Dose: 100 mls/hr Sodium Chloride (Sodium Chloride 0.45%) 500 mls @ 10 mls/hr IV .Q24H [facility] Last Admin: 12/08/16 16:41 Dose: Not Given Daptomycin 650 mg/ Sodium (Chloride) 100 mls @ 100 mls/hr IVPB MWF@1800 [facility] Stop: 12/16/16 18:59 Last Admin: 12/06/16 19:19 Dose: 100 mls/hr Sodium Chloride (Sodium Chloride 0.9%) 1,000 mls @ 25 mls/hr IV .Q24H [facility] Last Admin: 12/08/16 12:16 Dose: Not Given Lidocaine (Lidoderm) 1 ea TD DAILY [facility] Last Admin: 12/09/16 09:10 Dose: 1 ea Nystatin (Nystop Topical Powder) 1 applic TOP BID [facility] Last Admin: 12/09/16 08:58 Dose: 1 applic Ondansetron HCl (Zofran Inj) 4 mg IVP Q6 PRN PRN Reason: Nausea/Vomiting Last Admin: 09/19/16 10:26 Dose: 4 mg Pantoprazole Sodium (Protonix Ec Tab) 40 mg PO DAILY [facility] Last Admin: 12/09/16 08:56 Dose: 40 mg Repaglinide (Prandin) 0.5 mg PO TIDAC [facility] Last Admin: 12/09/16 08:56 Dose: 0.5 mg Sennosides (Senokot Tab) 25.8 mg PO HS [facility] Last Admin: 12/08/16 21:24 Dose: 25.8 mg Sevelamer HCl (Renagel) 1,600 mg PO TID [facility] Last Admin: 12/09/16 08:56 Dose: 1,600 mg Topiramate (Topamax) 50 mg PO BID [facility] Last Admin: 12/09/16 08:56 Dose: 50 mg Vitamin B Complex/Vit C/Folic Acid (Nephro-Ajay) 1 tab PO DAILY [facility] Last Admin: 12/09/16 08:57 Dose: 1 tab - Labs Labs: 12/06/16 11:30 12/06/16 11:30 PT 15.3 Seconds (9.8-13.1) H 12/02/16 13:05 INR 1.4 (0.9-1.2) H 12/02/16 13:05 APTT 37.0 Seconds (25.6-37.1) 12/02/16 13:05 - Respiratory Exam Additional comments: Lungs clear - Cardiovascular Exam Cardiovascular Exam: REGULAR RHYTHM - Extremities Exam Additional comments: Rt stump dressed B/L BKA Assessment and Plan - Assessment and Plan (Free Text) Assessment: ESRD on HD PVD . Rt stump OM/wound Anemia Hb improved IDDM with complications Plan: For dialysis today Labs stable
[2016-12-09] MEDS: Sodium Chloride 0.9% 1,000 ML IV SCH (12:21)
--- NOTE | 2016-12-09 15:48 | CP.PCM.PN ---
Subjective - Date & Time of Evaluation Date of Evaluation: 12/09/16 Time of Evaluation: 15:44 - Subjective Subjective: Patient had physical and occupational therapy this morning. She is improving in her ability to propel self in manual wheelchair, although she still needs to be transferred via [place] lift. On Prandin 0.5 mg tid ac for DM II. Staff could not get enough blood via arm stick this morning, but will ask dialysis nurse to check blood glucose. Dr. Mccormack changed the wound vac today. The right BK wound is granulating in very well with no signs of infection. The right patellar wound is improving, but needs daily Santyl and aggressive wet to dry dressings daily. Pt continues on 4 iv and 1 po antibiotic. To have hemodialysis now. All other meds continue as before. Objective - Vital Signs/Intake and Output Vital Signs (last 24 hours): Temp Pulse Resp BP Pulse Ox 98.5 F 109 H 20 134/75 100 12/09/16 08:15 12/09/16 08:15 12/09/16 08:15 12/09/16 08:15 12/09/16 08:15 - Medications Medications: Current Medications Acetaminophen (Tylenol 325mg Tab) 650 mg PO Q4 PRN PRN Reason: Fever >100.4 F Last Admin: 11/21/16 00:44 Dose: 650 mg Acetaminophen (Tylenol 325mg Tab) 650 mg PO Q4 PRN PRN Reason: Pain, moderate (4-7) Last Admin: 09/16/16 22:34 Dose: 650 mg Albuterol Sulfate (Albuterol 0.083% Inhal Barbie (2.5 Mg/3 Ml) Ud) 2.5 mg INH RQ4 PRN PRN Reason: Shortness of Breath Albuterol/Ipratropium (Duoneb 3 Mg/0.5 Mg (3 Ml) Ud) 3 ml INH RQ4 PRN PRN Reason: Shortness of Breath Last Admin: 11/11/16 07:39 Dose: 3 ml Apixaban (Eliquis) 5 mg PO BID [facility] PRN Reason: Protocol Last Admin: 12/09/16 08:56 Dose: 5 mg Aspirin (Ecotrin) 81 mg PO DAILY [facility] Last Admin: 12/09/16 08:58 Dose: 81 mg Atorvastatin Calcium (Lipitor) 40 mg PO DAILY [facility] Last Admin: 12/09/16 08:57 Dose: 40 mg Benzonatate (Tessalon Perles) 200 mg PO TID PRN PRN Reason: Cough Last Admin: 11/21/16 09:06 Dose: 200 mg Calcium Carbonate (Oscal) 500 mg PO BIDWM [facility] Last Admin: 12/09/16 08:58 Dose: 500 mg Cinacalcet (Sensipar) 30 mg PO DAILY [facility] Last Admin: 12/09/16 08:56 Dose: 30 mg Collagenase (Santyl) 1 applic TOP DAILY [facility] Last Admin: 12/09/16 08:57 Dose: 1 appl Diphenhydramine HCl (Benadryl) 25 mg PO Q6 PRN PRN Reason: Itching / Pruritus Last Admin: 11/12/16 08:34 Dose: 25 mg Docusate Sodium (Colace) 100 mg PO BID [facility] Last Admin: 12/09/16 08:57 Dose: 100 mg [facility]a ([facility]) [facility] Last Admin: 12/06/16 09:29 Dose: Not Given Ergocalciferol (Drisdol 50,000 Intl Units Cap) 1 cap PO WED [facility] Last Admin: 12/04/16 09:30 Dose: 1 cap Fluconazole (Diflucan) 100 mg PO DAILY [facility] Last Admin: 12/09/16 09:00 Dose: 100 mg Gabapentin (Neurontin) 300 mg PO TID [facility] Last Admin: 12/09/16 12:20 Dose: 300 mg Hydrocortisone (Anusol-Hc) 1 applic [place] BID PRN PRN Reason: Inflammation Hydromorphone HCl (Dilaudid) 1 mg IVP Q2H PRN PRN Reason: Pain, severe (8-10) Last Admin: 12/09/16 12:19 Dose: 1 mg Meropenem 500 mg/ Sodium (Chloride) 100 mls @ 100 mls/hr IVPB DAILY@0100 [facility] Last Admin: 12/09/16 01:09 Dose: 100 mls/hr Gentamicin Sulfate/Sodium Chloride (Gentamicin 100mg/100ml Ns) 100 mg in 100 mls @ 100 mls/hr IVPB MWF [facility] Last Admin: 12/09/16 11:55 Dose: 100 mls/hr Tigecycline 25 mg/ Sodium (Chloride) 100 mls @ 100 mls/hr IVPB Q12 [facility] Last Admin: 12/09/16 08:55 Dose: 100 mls/hr Sodium Chloride (Sodium Chloride 0.45%) 500 mls @ 10 mls/hr IV .Q24H [facility] Last Admin: 12/08/16 16:41 Dose: Not Given Daptomycin 650 mg/ Sodium (Chloride) 100 mls @ 100 mls/hr IVPB MWF@1800 [facility] Stop: 12/16/16 18:59 Last Admin: 12/06/16 19:19 Dose: 100 mls/hr Sodium Chloride (Sodium Chloride 0.9%) 1,000 mls @ 25 mls/hr IV .Q24H [facility] Last Admin: 12/09/16 12:21 Dose: Not Given Lidocaine (Lidoderm) 1 ea TD DAILY [facility] Last Admin: 12/09/16 09:10 Dose: 1 ea Nystatin (Nystop Topical Powder) 1 applic TOP BID [facility] Last Admin: 12/09/16 08:58 Dose: 1 applic Ondansetron HCl (Zofran Inj) 4 mg IVP Q6 PRN PRN Reason: Nausea/Vomiting Last Admin: 09/19/16 10:26 Dose: 4 mg Pantoprazole Sodium (Protonix Ec Tab) 40 mg PO DAILY [facility] Last Admin: 12/09/16 08:56 Dose: 40 mg Repaglinide (Prandin) 0.5 mg PO TIDAC [facility] Last Admin: 12/09/16 11:56 Dose: 0.5 mg Sennosides (Senokot Tab) 25.8 mg PO HS [facility] Last Admin: 12/08/16 21:24 Dose: 25.8 mg Sevelamer HCl (Renagel) 1,600 mg PO TID [facility] Last Admin: 12/09/16 12:20 Dose: 1,600 mg Topiramate (Topamax) 50 mg PO BID [facility] Last Admin: 12/09/16 08:56 Dose: 50 mg Vitamin B Complex/Vit C/Folic Acid (Nephro-Ajay) 1 tab PO DAILY [facility] Last Admin: 12/09/16 08:57 Dose: 1 tab - Labs Labs: 12/06/16 11:30 12/06/16 11:30 PT 15.3 Seconds (9.8-13.1) H 12/02/16 13:05 INR 1.4 (0.9-1.2) H 12/02/16 13:05 APTT 37.0 Seconds (25.6-37.1) 12/02/16 13:05 - Constitutional Appears: No Acute Distress - Head Exam Head Exam: NORMAL INSPECTION - Eye Exam Eye Exam: Normal appearance - ENT Exam ENT Exam: Mucous Membranes Moist - Neck Exam Neck Exam: Normal Inspection - Respiratory Exam Respiratory Exam: Clear to Ausculation Bilateral, NORMAL BREATHING PATTERN - Cardiovascular Exam Cardiovascular Exam: REGULAR RHYTHM, +S1, +S2 - GI/Abdominal Exam GI & Abdominal Exam: Soft - Extremities Exam Additional comments: See Dr. Mccormack's not for detailed description of right leg. Otherwise unchanged. - Neurological Exam Neurological Exam: Alert, Oriented x3 - Psychiatric Exam Psychiatric exam: Normal Affect, Normal Mood - Skin Skin Exam: Dry, Normal Color, Warm Assessment and Plan (1) Status post below knee amputation of right lower extremity Assessment & Plan: The R BK wound is healing with no sign of infection. The right patellar wound is also healing. To continue current treatments. Status: Acute (2) ESRD (end stage renal disease) on dialysis Status: Chronic (3) DM type 2 (diabetes mellitus, type 2) Assessment & Plan: We will continue to try to monitor blood glucoses while on Prandin. Status: Chronic (4) Coagulopathy Status: Chronic (5) Peripheral arterial occlusive disease Status: Chronic
--- NOTE | 2016-12-09 17:44 | PN ---
This is a 46-year-old female with recent uncontrolled type 2 insulin requiring diabetes now being followed closely for metabolic management. Her glycemic levels improved remarkably especially noted postoperatively with the recent right below knee amputation undertaken thereof. She also had recent debridement of the stump in the right below knee amputation area with underlying osteomyelitis as noted. She has ongoing IV antibiotic management as noted. Her glycemic levels have improved remarkably and she has been taken off all basal and bolus insulin regimen as given. She has been started on oral hypoglycemic drug therapy as ordered. Her glucose levels today have raised from 114 to 125 and 176 mg/dL. Her latest chemistry shows a BUN of 59, sodium 140, potassium 5.2, chloride 102, CO2 23, glucose 60 and creatinine 6.0, so at this time we will continue the low dose oral hypoglycemic drug therapy as given, given as 0.5 mg p.o. t.i.d. before meals as ordered. We will titrate incrementally as indicated to optimize metabolic control. We will follow her and advise accordingly. Irene Ambrose MD
[2016-12-09] MEDS: Epoetin Alfa 20000 UNIT/ML Inj IV SCH (18:09)
[2016-12-10] MEDS: Meropenem 500 MG in Sodium Chloride 0.9% 100 ML IVPB SCH (00:47)
[2016-12-10] MEDS: Lidocaine 5% Patch TD SCH (09:01)
[2016-12-10] MEDS: Pantoprazole 40 mg EC Tab PO SCH (09:01)
[2016-12-10] MEDS: Multivitamin Vitamin B Complex (Nephro-Vite) Tab PO SCH (09:01)
[2016-12-10] MEDS: SODIUM CHLORIDE 0.9% IVPB SCH ×2 (09:03→20:52)
[2016-12-10] MEDS: Santyl Collagenase OINTMENT TOP SCH (09:03)
[2016-12-10] MEDS: TIGECYCLINE IVPB SCH ×2 (09:03→20:52)
[2016-12-10] MEDS: HYDROmorphone 0.5 mg/0.5 ml ISec IVP PRN ×3 (10:20→17:01)
--- NOTE | 2016-12-10 11:10 | CP.PCM.PN ---
Subjective - Date & Time of Evaluation Date of Evaluation: 12/10/16 Time of Evaluation: 11:07 - Subjective Subjective: Patient is sitting up in bed without support - for just a few minutes. Physical /occupational therapy in progress, and she is doing well with this. Wound vac in place and has no leak. Continues on 4 iv and 1 po antibiotic. As of yesterday, R BK Daily wound was granulating in very nicely with no sign of infection. Daily Santyl dressings with wet to dry continue for right patella. No fevers, cough, or dyspnea. Nopain. On Prandin tid. Glucose was 118 yesterday afternoon and [address] Ambrose is managing diabetic care. Lidoderm patch is not really doing much for back pain (not severe), so I am discontinuing this. Objective - Vital Signs/Intake and Output Vital Signs (last 24 hours): Temp Pulse Resp BP Pulse Ox 98.3 F 107 H 18 133/80 99 12/10/16 08:03 12/10/16 08:03 12/10/16 08:03 12/10/16 08:03 12/10/16 08:03 - Medications Medications: Current Medications Acetaminophen (Tylenol 325mg Tab) 650 mg PO Q4 PRN PRN Reason: Fever >100.4 F Last Admin: 11/21/16 00:44 Dose: 650 mg Acetaminophen (Tylenol 325mg Tab) 650 mg PO Q4 PRN PRN Reason: Pain, moderate (4-7) Last Admin: 09/16/16 22:34 Dose: 650 mg Albuterol Sulfate (Albuterol 0.083% Inhal Barbie (2.5 Mg/3 Ml) Ud) 2.5 mg INH RQ4 PRN PRN Reason: Shortness of Breath Albuterol/Ipratropium (Duoneb 3 Mg/0.5 Mg (3 Ml) Ud) 3 ml INH RQ4 PRN PRN Reason: Shortness of Breath Last Admin: 11/11/16 07:39 Dose: 3 ml Apixaban (Eliquis) 5 mg PO BID JASPER PRN Reason: Protocol Last Admin: 12/10/16 08:59 Dose: 5 mg Aspirin (Ecotrin) 81 mg PO DAILY [facility] Last Admin: 12/10/16 08:59 Dose: 81 mg Atorvastatin Calcium (Lipitor) 40 mg PO DAILY [facility] Last Admin: 12/10/16 09:00 Dose: 40 mg Benzonatate (Tessalon Perles) 200 mg PO TID PRN PRN Reason: Cough Last Admin: 11/21/16 09:06 Dose: 200 mg Calcium Carbonate (Oscal) 500 mg PO BIDWM [facility] Last Admin: 12/10/16 09:00 Dose: 500 mg Cinacalcet (Sensipar) 30 mg PO DAILY [facility] Last Admin: 12/10/16 08:58 Dose: 30 mg Collagenase (Santyl) 1 applic TOP DAILY [facility] Last Admin: 12/10/16 09:03 Dose: 1 appl Diphenhydramine HCl (Benadryl) 25 mg PO Q6 PRN PRN Reason: Itching / Pruritus Last Admin: 11/12/16 08:34 Dose: 25 mg Docusate Sodium (Colace) 100 mg PO BID [facility] Last Admin: 12/10/16 09:00 Dose: 100 mg Epoetin Tha (Procrit) 20,000 unit IV [facility] [place] Last Admin: 12/09/16 18:09 Dose: Not Given Ergocalciferol (Drisdol 50,000 Intl Units Cap) 1 cap PO WED [facility] Last Admin: 12/04/16 09:30 Dose: 1 cap Fluconazole (Diflucan) 100 mg PO DAILY [facility] Last Admin: 12/10/16 09:00 Dose: 100 mg Gabapentin (Neurontin) 300 mg PO TID [facility] Last Admin: 12/10/16 09:00 Dose: 300 mg Hydrocortisone (Anusol-Hc) 1 applic ID BID PRN PRN Reason: Inflammation Hydromorphone HCl (Dilaudid) 1 mg IVP Q2H PRN PRN Reason: Pain, severe (8-10) Last Admin: 12/10/16 10:20 Dose: 1 mg Meropenem 500 mg/ Sodium (Chloride) 100 mls @ 100 mls/hr IVPB DAILY@0100 [facility] Last Admin: 12/10/16 00:47 Dose: 100 mls/hr Gentamicin Sulfate/Sodium Chloride (Gentamicin 100mg/100ml Ns) 100 mg in 100 mls @ 100 mls/hr IVPB MWF [facility] Last Admin: 12/09/16 11:55 Dose: 100 mls/hr Tigecycline 25 mg/ Sodium (Chloride) 100 mls @ 100 mls/hr IVPB Q12 [facility] Last Admin: 12/10/16 09:03 Dose: 100 mls/hr Sodium Chloride (Sodium Chloride 0.45%) 500 mls @ 10 mls/hr IV .Q24H [facility] Last Admin: 12/09/16 23:18 Dose: 10 mls/hr Daptomycin 650 mg/ Sodium (Chloride) 100 mls @ 100 mls/hr IVPB MWF@1800 [facility] Stop: 12/16/16 18:59 Last Admin: 12/09/16 18:22 Dose: 100 mls/hr Sodium Chloride (Sodium Chloride 0.9%) 1,000 mls @ 25 mls/hr IV .Q24H [facility] Last Admin: 12/09/16 12:21 Dose: Not Given Lidocaine (Lidoderm) 1 ea TD DAILY [facility] Last Admin: 12/10/16 09:01 Dose: 1 ea Nystatin (Nystop Topical Powder) 1 applic TOP BID [facility] Last Admin: 12/10/16 09:45 Dose: Not Given Ondansetron HCl (Zofran Inj) 4 mg IVP Q6 PRN PRN Reason: Nausea/Vomiting Last Admin: 09/19/16 10:26 Dose: 4 mg Pantoprazole Sodium (Protonix Ec Tab) 40 mg PO DAILY [facility] Last Admin: 12/10/16 09:01 Dose: 40 mg Repaglinide (Prandin) 0.5 mg PO TIDAC [facility] Last Admin: 12/10/16 08:59 Dose: 0.5 mg Sennosides (Senokot Tab) 25.8 mg PO HS [facility] Last Admin: 12/09/16 21:13 Dose: 25.8 mg Sevelamer HCl (Renagel) 1,600 mg PO TID [facility] Last Admin: 12/10/16 08:58 Dose: 1,600 mg Topiramate (Topamax) 50 mg PO BID [facility] Last Admin: 12/10/16 09:00 Dose: 50 mg Vitamin B Complex/Vit C/Folic Acid (Nephro-Ajay) 1 tab PO DAILY [facility] Last Admin: 12/10/16 09:01 Dose: 1 tab - Labs Labs: 12/06/16 11:30 12/06/16 11:30 PT 15.3 Seconds (9.8-13.1) H 12/02/16 13:05 INR 1.4 (0.9-1.2) H 12/02/16 13:05 APTT 37.0 Seconds (25.6-37.1) 12/02/16 13:05 - Constitutional Appears: No Acute Distress - Head Exam Head Exam: NORMAL INSPECTION - Eye Exam Eye Exam: Normal appearance - ENT Exam ENT Exam: Mucous Membranes Moist - Neck Exam Neck Exam: Normal Inspection - Respiratory Exam Respiratory Exam: Clear to Ausculation Bilateral, NORMAL BREATHING PATTERN - Cardiovascular Exam Cardiovascular Exam: REGULAR RHYTHM, +S1, +S2 - GI/Abdominal Exam GI & Abdominal Exam: Soft - Extremities Exam Additional comments: Dressing intact and dry and wound vac in place RLE. PICC line intact L femoral vein. - Back Exam Back Exam: NORMAL INSPECTION - Neurological Exam Neurological Exam: Alert, Oriented x3 - Psychiatric Exam Psychiatric exam: Normal Affect, Normal Mood - Skin Skin Exam: Dry, Normal Color, Warm Assessment and Plan (1) Status post below knee amputation of right lower extremity Assessment & Plan: Making nice progress. Continue present tx. and antibiotics. Status: Acute (2) ESRD (end stage renal disease) on dialysis Status: Chronic (3) DM type 2 (diabetes mellitus, type 2) Status: Chronic (4) Coagulopathy Status: Chronic (5) Peripheral arterial occlusive disease Status: Chronic
[2016-12-10 15:03] LABS: BASO # 0.1 K/uL (0.0-0.2); BASO % 1.2 % (0.0-2.0); EOS # 0.6 K/uL (0.0-0.7); EOS % 6.2 % (0.0-4.0); HEMATOCRIT 34.3 % (34.0-47.0); LYMPH # 1.8 K/uL (1.0-4.3); MEAN CORPUSCULAR HGB CONC 31.4 g/dL (33.0-37.0); MEAN PLATELET VOLUME 9.5 fl (7.2-11.7); MONO # 1.1 K/uL (0.0-0.8); MONO % 11.8 % (0.0-10.0); NEUT # 5.4 K/uL (1.8-7.0); NEUT % 60.8 % (50.0-75.0); NRBC % 0.1 % (0.0-0.0); RED CELL DISTRIBUTION WIDTH 21.3 % (11.5-14.5); WHITE BLOOD COUNT 8.9 K/uL (4.8-10.8)
[2016-12-10 15:08] LABS: MEAN CELL VOLUME 98.7 fl (81.0-99.0)
--- NOTE | 2016-12-10 19:29 | PN ---
ENDOCRINOLOGY FOLLOWUP NOTE LOCATION: Room #661 SUBJECTIVE: This is a 46-year-old female with known history of type 2 insulin-requiring diabetes with improved glycemic profile and has been taken off all insulin therapy at this time, and is doing very well on a low-dose oral hypoglycemic drug therapy as given. She is receiving IV antibiotics and local debridement of her recent right below-knee amputation procedure undertaken thereafter. Her latest glucose values have ranged from 90 to 114 and 118 mg/dL. Her latest chemistries show BUN of 59, sodium 140, potassium 5.2, chloride 102, CO2 23, glucose 60, and creatinine 6.0. PLAN: So at this time, we will continue the low-dose oral hypoglycemic drug therapy as ordered with Prandin given as 0.5 mg p.o. t.i.d. before meals as ordered. We will titrate incrementally as indicated to optimize metabolic control. We will obtain serum chemistry and supplement accordingly as needed. We will follow with you. Irene Ambrose MD
[2016-12-11] MEDS: HYDROmorphone 0.5 mg/0.5 ml ISec IVP PRN ×7 (00:29→21:51)
[2016-12-11] MEDS: Meropenem 500 MG in Sodium Chloride 0.9% 100 ML IVPB SCH (00:31)
[2016-12-11] MEDS: SODIUM CHLORIDE 0.9% IVPB SCH ×2 (09:24→21:26)
[2016-12-11] MEDS: TIGECYCLINE IVPB SCH ×2 (09:24→21:26)
[2016-12-11] MEDS: Ergocalciferol 50,000 Intl Units Cap PO SCH (09:33)
[2016-12-11] MEDS: Pantoprazole 40 mg EC Tab PO SCH (09:35)
[2016-12-11] MEDS: Multivitamin Vitamin B Complex (Nephro-Vite) Tab PO SCH (09:36)
[2016-12-11] MEDS: Santyl Collagenase OINTMENT TOP SCH (09:47)
[2016-12-11] MEDS: Gentamicin 100mg/100ml NS 100 MG/100 ML BAG IVPB SCH (11:00)
--- NOTE | 2016-12-11 11:36 | CP.PCM.PN ---
Subjective - Date & Time of Evaluation Date of Evaluation: 12/11/16 Time of Evaluation: 11:30 - Subjective Subjective: Patient is about to start hemodialysis. She had vigorous physical therapy yesterday and needed to be medicated for pain last night due to leg cramps. However, she is pleased with her progress in strengthening the upper body and trunk. Wound vac to be changed tomorrow by Dr. Mccormack. She gets daily dressing changes for right patella with Santyl and wet to dry. IV and po antibiotics are continuing. Glucoses are doing nicely aroung 90-100 on oral Prandin only. No fevers, cough, or dyspnea Objective - Vital Signs/Intake and Output Vital Signs (last 24 hours): Temp Pulse Resp BP Pulse Ox 98.1 F 104 H 20 125/43 L 99 12/11/16 08:07 12/11/16 08:07 12/11/16 08:07 12/11/16 08:07 12/11/16 08:07 - Medications Medications: Current Medications Acetaminophen (Tylenol 325mg Tab) 650 mg PO Q4 PRN PRN Reason: Fever >100.4 F Last Admin: 11/21/16 00:44 Dose: 650 mg Acetaminophen (Tylenol 325mg Tab) 650 mg PO Q4 PRN PRN Reason: Pain, moderate (4-7) Last Admin: 09/16/16 22:34 Dose: 650 mg Albuterol Sulfate (Albuterol 0.083% Inhal Barbie (2.5 Mg/3 Ml) Ud) 2.5 mg INH RQ4 PRN PRN Reason: Shortness of Breath Albuterol/Ipratropium (Duoneb 3 Mg/0.5 Mg (3 Ml) Ud) 3 ml INH RQ4 PRN PRN Reason: Shortness of Breath Last Admin: 11/11/16 07:39 Dose: 3 ml Apixaban (Eliquis) 5 mg PO BID JASPER PRN Reason: Protocol Last Admin: 12/11/16 09:33 Dose: 5 mg Aspirin (Ecotrin) 81 mg PO DAILY [facility] Last Admin: 12/11/16 09:36 Dose: 81 mg Atorvastatin Calcium (Lipitor) 40 mg PO DAILY [facility] Last Admin: 12/11/16 09:36 Dose: 40 mg Benzonatate (Tessalon Perles) 200 mg PO TID PRN PRN Reason: Cough Last Admin: 11/21/16 09:06 Dose: 200 mg Calcium Carbonate (Oscal) 500 mg PO BIDWM [facility] Last Admin: 12/11/16 09:34 Dose: 500 mg Cinacalcet (Sensipar) 30 mg PO DAILY [facility] Last Admin: 12/11/16 09:33 Dose: 30 mg Collagenase (Santyl) 1 applic TOP DAILY [facility] Last Admin: 12/11/16 09:47 Dose: 1 appl Diphenhydramine HCl (Benadryl) 25 mg PO Q6 PRN PRN Reason: Itching / Pruritus Last Admin: 11/12/16 08:34 Dose: 25 mg Docusate Sodium (Colace) 100 mg PO BID [facility] Last Admin: 12/11/16 09:31 Dose: 100 mg Epoetin Tha (Procrit) [facility] Last Admin: 12/09/16 18:09 Dose: Not Given Ergocalciferol (Drisdol 50,000 Intl Units Cap) 1 cap PO WED [facility] Last Admin: 12/11/16 09:33 Dose: 1 cap Fluconazole (Diflucan) 100 mg PO DAILY [facility] Last Admin: 12/11/16 09:33 Dose: 100 mg Gabapentin (Neurontin) 300 mg PO TID [facility] Last Admin: 12/11/16 09:31 Dose: 300 mg Hydrocortisone (Anusol-Hc) 1 applic MS BID PRN PRN Reason: Inflammation Hydromorphone HCl (Dilaudid) 1 mg IVP Q2H PRN PRN Reason: Pain, severe (8-10) Last Admin: 12/11/16 09:19 Dose: 1 mg Meropenem 500 mg/ Sodium (Chloride) 100 mls @ 100 mls/hr IVPB DAILY@0100 [facility] Last Admin: 12/11/16 00:31 Dose: 100 mls/hr Gentamicin Sulfate/Sodium Chloride (Gentamicin 100mg/100ml Ns) 100 mg in 100 mls @ 100 mls/hr IVPB MWF [facility] Last Admin: 12/11/16 11:00 Dose: 100 mls/hr Tigecycline 25 mg/ Sodium (Chloride) 100 mls @ 100 mls/hr IVPB Q12 [facility] Last Admin: 12/11/16 09:24 Dose: 100 mls/hr Sodium Chloride (Sodium Chloride 0.45%) 500 mls @ 10 mls/hr IV .Q24H [facility] Last Admin: 12/09/16 23:18 Dose: 10 mls/hr Daptomycin 650 mg/ Sodium (Chloride) 100 mls @ 100 mls/hr IVPB MWF@1800 [facility] Stop: 12/16/16 18:59 Last Admin: 12/09/16 18:22 Dose: 100 mls/hr Sodium Chloride (Sodium Chloride 0.9%) 1,000 mls @ 25 mls/hr IV .Q24H [facility] Last Admin: 12/09/16 12:21 Dose: Not Given Nystatin (Nystop Topical Powder) 1 applic TOP BID [facility] Last Admin: 12/11/16 09:35 Dose: Not Given Ondansetron HCl (Zofran Inj) 4 mg IVP Q6 PRN PRN Reason: Nausea/Vomiting Last Admin: 09/19/16 10:26 Dose: 4 mg Pantoprazole Sodium (Protonix Ec Tab) 40 mg PO DAILY [facility] Last Admin: 12/11/16 09:35 Dose: 40 mg Repaglinide (Prandin) 0.5 mg PO TIDAC [facility] Last Admin: 12/11/16 08:00 Dose: 0.5 mg Sennosides (Senokot Tab) 25.8 mg PO HS [facility] Last Admin: 12/10/16 22:13 Dose: 25.8 mg Sevelamer HCl (Renagel) 1,600 mg PO TID [facility] Last Admin: 12/11/16 09:33 Dose: 1,600 mg Topiramate (Topamax) 50 mg PO BID [facility] Last Admin: 12/11/16 09:35 Dose: 50 mg Vitamin B Complex/Vit C/Folic Acid (Nephro-Ajay) 1 tab PO DAILY [facility] Last Admin: 12/11/16 09:36 Dose: 1 tab - Labs Labs: 12/10/16 14:00 12/06/16 11:30 PT 15.3 Seconds (9.8-13.1) H 12/02/16 13:05 INR 1.4 (0.9-1.2) H 12/02/16 13:05 APTT 37.0 Seconds (25.6-37.1) 12/02/16 13:05 - Constitutional Appears: No Acute Distress - Head Exam Head Exam: NORMAL INSPECTION - Eye Exam Eye Exam: Normal appearance - ENT Exam ENT Exam: Mucous Membranes Moist - Neck Exam Neck Exam: Normal Inspection - Respiratory Exam Respiratory Exam: Clear to Ausculation Bilateral, NORMAL BREATHING PATTERN - Cardiovascular Exam Cardiovascular Exam: REGULAR RHYTHM, +S1, +S2 - GI/Abdominal Exam GI & Abdominal Exam: Soft - Extremities Exam Additional comments: Dressings intact right lower extremity with wound vac in place. L femoral vein PICC line intact. - Back Exam Back Exam: NORMAL INSPECTION - Neurological Exam Neurological Exam: Alert, Awake, Oriented x3 - Psychiatric Exam Psychiatric exam: Normal Affect, Normal Mood - Skin Skin Exam: Dry, Normal Color, Warm Assessment and Plan (1) Status post below knee amputation of right lower extremity Assessment & Plan: Continues to make progress. Continue present treatment plan. Status: Acute (2) ESRD (end stage renal disease) on dialysis Status: Chronic (3) DM type 2 (diabetes mellitus, type 2) Assessment & Plan: Good glycemic control on Prandin. Status: Chronic (4) Coagulopathy Status: Chronic (5) Peripheral arterial occlusive disease Status: Chronic
[2016-12-11] MEDS: Epoetin Alfa 20000 UNIT/ML Inj IV SCH (11:46)
--- NOTE | 2016-12-11 12:00 | CP.PCM.PN ---
Subjective - Date & Time of Evaluation Date of Evaluation: 12/11/16 Time of Evaluation: 11:59 - Subjective Subjective: Patient seen on hemodialysis now Patient is awake and conscious Vital signs stable Objective - Vital Signs/Intake and Output Vital Signs (last 24 hours): Temp Pulse Resp BP Pulse Ox 98.1 F 104 H 20 125/43 L 99 12/11/16 08:07 12/11/16 08:07 12/11/16 08:07 12/11/16 08:07 12/11/16 08:07 - Medications Medications: Current Medications Acetaminophen (Tylenol 325mg Tab) 650 mg PO Q4 PRN PRN Reason: Fever >100.4 F Last Admin: 11/21/16 00:44 Dose: 650 mg Acetaminophen (Tylenol 325mg Tab) 650 mg PO Q4 PRN PRN Reason: Pain, moderate (4-7) Last Admin: 09/16/16 22:34 Dose: 650 mg Albuterol Sulfate (Albuterol 0.083% Inhal Barbie (2.5 Mg/3 Ml) Ud) 2.5 mg INH RQ4 PRN PRN Reason: Shortness of Breath Albuterol/Ipratropium (Duoneb 3 Mg/0.5 Mg (3 Ml) Ud) 3 ml INH RQ4 PRN PRN Reason: Shortness of Breath Last Admin: 11/11/16 07:39 Dose: 3 ml Apixaban (Eliquis) 5 mg PO BID JASPER PRN Reason: Protocol Last Admin: 12/11/16 09:33 Dose: 5 mg Aspirin (Ecotrin) 81 mg PO DAILY [facility] Last Admin: 12/11/16 09:36 Dose: 81 mg Atorvastatin Calcium (Lipitor) 40 mg PO DAILY [facility] Last Admin: 12/11/16 09:36 Dose: 40 mg Benzonatate (Tessalon Perles) 200 mg PO TID PRN PRN Reason: Cough Last Admin: 11/21/16 09:06 Dose: 200 mg Calcium Carbonate (Oscal) 500 mg PO BIDWM [facility] Last Admin: 12/11/16 09:34 Dose: 500 mg Cinacalcet (Sensipar) 30 mg PO DAILY [facility] Last Admin: 12/11/16 09:33 Dose: 30 mg Collagenase (Santyl) 1 applic TOP DAILY [facility] Last Admin: 12/11/16 09:47 Dose: 1 appl Diphenhydramine HCl (Benadryl) 25 mg PO Q6 PRN PRN Reason: Itching / Pruritus Last Admin: 11/12/16 08:34 Dose: 25 mg Docusate Sodium (Colace) 100 mg PO BID [facility] Last Admin: 12/11/16 09:31 Dose: 100 mg Epoetin Tha (Procrit) 20,000 unit IV MWF [facility] Last Admin: 12/11/16 11:46 Dose: 20,000 unit Ergocalciferol (Drisdol 50,000 Intl Units Cap) 1 cap PO WED [facility] Last Admin: 12/11/16 09:33 Dose: 1 cap Fluconazole (Diflucan) 100 mg PO DAILY [facility] Last Admin: 12/11/16 09:33 Dose: 100 mg Gabapentin (Neurontin) 300 mg PO TID [facility] Last Admin: 12/11/16 09:31 Dose: 300 mg Hydrocortisone (Anusol-Hc) 1 applic [place] BID PRN PRN Reason: Inflammation Hydromorphone HCl (Dilaudid) 1 mg IVP Q2H PRN PRN Reason: Pain, severe (8-10) Last Admin: 12/11/16 11:50 Dose: 1 mg Meropenem 500 mg/ Sodium (Chloride) 100 mls @ 100 mls/hr IVPB DAILY@0100 [facility] Last Admin: 12/11/16 00:31 Dose: 100 mls/hr Gentamicin Sulfate/Sodium Chloride (Gentamicin 100mg/100ml Ns) 100 mg in 100 mls @ 100 mls/hr IVPB MWF [facility] Last Admin: 12/11/16 11:00 Dose: 100 mls/hr Tigecycline 25 mg/ Sodium (Chloride) 100 mls @ 100 mls/hr IVPB Q12 [facility] Last Admin: 12/11/16 09:24 Dose: 100 mls/hr Sodium Chloride (Sodium Chloride 0.45%) 500 mls @ 10 mls/hr IV .Q24H [facility] Last Admin: 12/09/16 23:18 Dose: 10 mls/hr Daptomycin 650 mg/ Sodium (Chloride) 100 mls @ 100 mls/hr IVPB MWF@1800 [facility] Stop: 12/16/16 18:59 Last Admin: 12/09/16 18:22 Dose: 100 mls/hr Nystatin (Nystop Topical Powder) 1 applic TOP BID [facility] Last Admin: 12/11/16 09:35 Dose: Not Given Ondansetron HCl (Zofran Inj) 4 mg IVP Q6 PRN PRN Reason: Nausea/Vomiting Last Admin: 09/19/16 10:26 Dose: 4 mg Pantoprazole Sodium (Protonix Ec Tab) 40 mg PO DAILY [facility] Last Admin: 12/11/16 09:35 Dose: 40 mg Repaglinide (Prandin) 0.5 mg PO TIDAC [facility] Last Admin: 12/11/16 08:00 Dose: 0.5 mg Sennosides (Senokot Tab) 25.8 mg PO HS [facility] Last Admin: 12/10/16 22:13 Dose: 25.8 mg Sevelamer HCl (Renagel) 1,600 mg PO TID [facility] Last Admin: 12/11/16 09:33 Dose: 1,600 mg Topiramate (Topamax) 50 mg PO BID [facility] Last Admin: 12/11/16 09:35 Dose: 50 mg Vitamin B Complex/Vit C/Folic Acid (Nephro-Ajay) 1 tab PO DAILY [facility] Last Admin: 12/11/16 09:36 Dose: 1 tab - Labs Labs: 12/10/16 14:00 12/06/16 11:30 PT 15.3 Seconds (9.8-13.1) H 12/02/16 13:05 INR 1.4 (0.9-1.2) H 12/02/16 13:05 APTT 37.0 Seconds (25.6-37.1) 12/02/16 13:05 - Constitutional Appears: No Acute Distress - ENT Exam ENT Exam: Mucous Membranes Moist - Respiratory Exam Respiratory Exam: NORMAL BREATHING PATTERN. absent: Chest Wall Tenderness - Cardiovascular Exam Cardiovascular Exam: REGULAR RHYTHM. absent: Rubs - Extremities Exam Extremities Exam: absent: Calf Tenderness - Back Exam Back Exam: absent: CVA tenderness (L), CVA tenderness (R) - Neurological Exam Neurological Exam: Alert Assessment and Plan (1) ESRD (end stage renal disease) Assessment & Plan: Patient receiving dialysis now With stable vital sign Potassium bath 2 mEq Sodium bath 138 Ultrafiltration about 2000 mL as tolerated Patient appeared to be comfortable I discussed with the dialysis nurse. The rest of the management as per primary team. Status: Chronic (2) Cellulitis of leg Status: Chronic
--- NOTE | 2016-12-11 15:16 | PN ---
DATE: ROOM: 661 This is a 46-year-old female with recent uncontrolled type 2 insulin requiring diabetes now taken off all insulin therapy with remarkable metabolic improvement with a glycemic profile as noted. Her glucose values have ranged from 90 to 94 to 100 and 118 mg/dL. Her latest chemistry showed a BUN of 59, sodium 140, potassium 5.2, chloride 102, CO2 23, glucose is 60, and creatinine is 6.0. So at this time, we will continue the low dose Prandin given at 0.5 mg p.o. t.i.d. before meals as ordered. We will titrate incrementally as indicated to optimize metabolic control. We will follow. Irene Ambrose MD
[2016-12-12] MEDS: Meropenem 500 MG in Sodium Chloride 0.9% 100 ML IVPB SCH (00:22)
[2016-12-12] MEDS: HYDROmorphone 0.5 mg/0.5 ml ISec IVP PRN ×7 (00:30→23:54)
[2016-12-12] MEDS: TIGECYCLINE IVPB SCH ×2 (08:22→20:00)
[2016-12-12] MEDS: SODIUM CHLORIDE 0.9% IVPB SCH ×2 (08:22→20:00)
[2016-12-12] MEDS: Multivitamin Vitamin B Complex (Nephro-Vite) Tab PO SCH (08:24)
[2016-12-12] MEDS: Pantoprazole 40 mg EC Tab PO SCH (08:24)
[2016-12-12] MEDS: Santyl Collagenase OINTMENT TOP SCH (08:25)
--- NOTE | 2016-12-12 08:58 | CP.PCM.PN ---
<Sb Groves - Last Filed: 12/12/16 08:56> Subjective - Date & Time of Evaluation Date of Evaluation: 12/12/16 Time of Evaluation: 08:56 - Subjective Subjective: Surgery for Dr. Easton betancur&yahir NOLAN. Resting comfortably. no complaints. Objective - Vital Signs/Intake and Output Vital Signs (last 24 hours): Temp Pulse Resp BP Pulse Ox 97.6 F 110 H 20 132/79 99 12/12/16 08:04 12/12/16 08:04 12/12/16 08:04 12/12/16 08:04 12/12/16 08:04 - Medications Medications: Current Medications Acetaminophen (Tylenol 325mg Tab) 650 mg PO Q4 PRN PRN Reason: Fever >100.4 F Last Admin: 11/21/16 00:44 Dose: 650 mg Acetaminophen (Tylenol 325mg Tab) 650 mg PO Q4 PRN PRN Reason: Pain, moderate (4-7) Last Admin: 09/16/16 22:34 Dose: 650 mg Albuterol Sulfate (Albuterol 0.083% Inhal Barbie (2.5 Mg/3 Ml) Ud) 2.5 mg INH RQ4 PRN PRN Reason: Shortness of Breath Albuterol/Ipratropium (Duoneb 3 Mg/0.5 Mg (3 Ml) Ud) 3 ml INH RQ4 PRN PRN Reason: Shortness of Breath Last Admin: 11/11/16 07:39 Dose: 3 ml Apixaban (Eliquis) 5 mg PO BID [facility] PRN Reason: Protocol Last Admin: 12/12/16 08:24 Dose: 5 mg Aspirin (Ecotrin) 81 mg PO DAILY [facility] Last Admin: 12/12/16 08:23 Dose: 81 mg Atorvastatin Calcium (Lipitor) 40 mg PO DAILY [facility] Last Admin: 12/12/16 08:24 Dose: 40 mg Benzonatate (Tessalon Perles) 200 mg PO TID PRN PRN Reason: Cough Last Admin: 11/21/16 09:06 Dose: 200 mg Calcium Carbonate (Oscal) 500 mg PO BIDWM [facility] Last Admin: 12/12/16 08:23 Dose: 500 mg Cinacalcet (Sensipar) 30 mg PO DAILY [facility] Last Admin: 12/12/16 08:23 Dose: 30 mg Collagenase (Santyl) 1 applic TOP DAILY [facility] Last Admin: 12/12/16 08:25 Dose: 1 appl Diphenhydramine HCl (Benadryl) 25 mg PO Q6 PRN PRN Reason: Itching / Pruritus Last Admin: 11/12/16 08:34 Dose: 25 mg Docusate Sodium (Colace) 100 mg PO BID [facility] Last Admin: 12/12/16 08:23 Dose: 100 mg Epoetin Tha (Procrit) 20,000 unit IV MWF [facility] Last Admin: 12/11/16 11:46 Dose: 20,000 unit Ergocalciferol (Drisdol 50,000 Intl Units Cap) 1 cap PO WED [facility] Last Admin: 12/11/16 09:33 Dose: 1 cap Fluconazole (Diflucan) 100 mg PO DAILY [facility] Last Admin: 12/12/16 08:23 Dose: 100 mg Gabapentin (Neurontin) 300 mg PO TID [facility] Last Admin: 12/12/16 08:23 Dose: 300 mg Hydrocortisone (Anusol-Hc) 1 applic [place] BID PRN PRN Reason: Inflammation Hydromorphone HCl (Dilaudid) 1 mg IVP Q2H PRN PRN Reason: Pain, severe (8-10) Last Admin: 12/12/16 08:33 Dose: 1 mg Meropenem 500 mg/ Sodium (Chloride) 100 mls @ 100 mls/hr IVPB DAILY@0100 [facility] Last Admin: 12/12/16 00:22 Dose: 100 mls/hr Gentamicin Sulfate/Sodium Chloride (Gentamicin 100mg/100ml Ns) 100 mg in 100 mls @ 100 mls/hr IVPB MWF [facility] Last Admin: 12/11/16 11:00 Dose: 100 mls/hr Tigecycline 25 mg/ Sodium (Chloride) 100 mls @ 100 mls/hr IVPB Q12 [facility] Last Admin: 12/12/16 08:22 Dose: 100 mls/hr Sodium Chloride (Sodium Chloride 0.45%) 500 mls @ 10 mls/hr IV .Q24H [facility] Last Admin: 12/09/16 23:18 Dose: 10 mls/hr Daptomycin 650 mg/ Sodium (Chloride) 100 mls @ 100 mls/hr IVPB MWF@1800 [facility] Stop: 12/16/16 18:59 Last Admin: 12/11/16 17:52 Dose: 100 mls/hr Nystatin (Nystop Topical Powder) 1 applic TOP BID [facility] Last Admin: 12/12/16 08:24 Dose: Not Given Ondansetron HCl (Zofran Inj) 4 mg IVP Q6 PRN PRN Reason: Nausea/Vomiting Last Admin: 09/19/16 10:26 Dose: 4 mg Pantoprazole Sodium (Protonix Ec Tab) 40 mg PO DAILY [facility] Last Admin: 12/12/16 08:24 Dose: 40 mg Repaglinide (Prandin) 0.5 mg PO TIDAC [facility] Last Admin: 12/12/16 08:23 Dose: 0.5 mg Sennosides (Senokot Tab) 25.8 mg PO HS [facility] Last Admin: 12/11/16 21:27 Dose: 25.8 mg Sevelamer HCl (Renagel) 1,600 mg PO TID [facility] Last Admin: 12/12/16 08:23 Dose: 1,600 mg Topiramate (Topamax) 50 mg PO BID [facility] Last Admin: 12/12/16 08:23 Dose: 50 mg Vitamin B Complex/Vit C/Folic Acid (Nephro-Ajay) 1 tab PO DAILY [facility] Last Admin: 12/12/16 08:24 Dose: 1 tab - Labs Labs: 12/10/16 14:00 12/06/16 11:30 PT 15.3 Seconds (9.8-13.1) H 12/02/16 13:05 INR 1.4 (0.9-1.2) H 12/02/16 13:05 APTT 37.0 Seconds (25.6-37.1) 12/02/16 13:05 - Constitutional Appears: No Acute Distress - Head Exam Head Exam: ATRAUMATIC, NORMAL INSPECTION, NORMOCEPHALIC - Eye Exam Eye Exam: EOMI, Normal appearance, PERRL Pupil Exam: NORMAL ACCOMODATION, PERRL - ENT Exam ENT Exam: Mucous Membranes Moist, Normal Exam - Neck Exam Neck Exam: Full ROM, Normal Inspection. absent: Lymphadenopathy - Respiratory Exam Respiratory Exam: Clear to Ausculation Bilateral, NORMAL BREATHING PATTERN - Cardiovascular Exam Cardiovascular Exam: REGULAR RHYTHM, +S1, +S2. absent: Murmur - GI/Abdominal Exam GI & Abdominal Exam: Soft, Normal Bowel Sounds. absent: Distended, Tenderness - Exam Exam: NORMAL INSPECTION - Extremities Exam Extremities Exam: absent: Normal Inspection, Tenderness Additional comments: b/l BKA. R stump wound vac in place. SS fluids. 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 Continue current wound care. Change VAC at bedside in 3-4 days. Continue Santyl to right knee patellar wound. Will DW Dr. Mccormack <Raffy Mccormack - Last Filed: 12/12/16 12:51> Objective - Vital Signs/Intake and Output Vital Signs (last 24 hours): Temp Pulse Resp BP Pulse Ox 97.6 F 110 H 20 132/79 99 12/12/16 08:04 12/12/16 08:04 12/12/16 08:04 12/12/16 08:04 12/12/16 08:04 - Medications Medications: Current Medications Acetaminophen (Tylenol 325mg Tab) 650 mg PO Q4 PRN PRN Reason: Fever >100.4 F Last Admin: 11/21/16 00:44 Dose: 650 mg Acetaminophen (Tylenol 325mg Tab) 650 mg PO Q4 PRN PRN Reason: Pain, moderate (4-7) Last Admin: 09/16/16 22:34 Dose: 650 mg Albuterol Sulfate (Albuterol 0.083% Inhal Barbie (2.5 Mg/3 Ml) Ud) 2.5 mg INH RQ4 PRN PRN Reason: Shortness of Breath Albuterol/Ipratropium (Duoneb 3 Mg/0.5 Mg (3 Ml) Ud) 3 ml INH RQ4 PRN PRN Reason: Shortness of Breath Last Admin: 11/11/16 07:39 Dose: 3 ml Apixaban (Eliquis) 5 mg PO BID [facility] PRN Reason: Protocol Last Admin: 12/12/16 08:24 Dose: 5 mg Aspirin (Ecotrin) 81 mg PO DAILY [facility] Last Admin: 12/12/16 08:23 Dose: 81 mg Atorvastatin Calcium (Lipitor) 40 mg PO DAILY [facility] Last Admin: 12/12/16 08:24 Dose: 40 mg Benzonatate (Tessalon Perles) 200 mg PO TID PRN PRN Reason: Cough Last Admin: 11/21/16 09:06 Dose: 200 mg Calcium Carbonate (Oscal) 500 mg PO BIDWM [facility] Last Admin: 12/12/16 08:23 Dose: 500 mg Cinacalcet (Sensipar) 30 mg PO DAILY [facility] Last Admin: 12/12/16 08:23 Dose: 30 mg Collagenase (Santyl) 1 applic TOP DAILY [facility] Last Admin: 12/12/16 08:25 Dose: 1 appl Diphenhydramine HCl (Benadryl) 25 mg PO Q6 PRN PRN Reason: Itching / Pruritus Last Admin: 11/12/16 08:34 Dose: 25 mg Docusate Sodium (Colace) 100 mg PO BID [facility] Last Admin: 12/12/16 08:23 Dose: 100 mg Epoetin Tha (Procrit) 20,[address] [facility] [place] Last Admin: 12/11/16 11:46 Dose: 20,000 unit Ergocalciferol (Drisdol 50,000 Intl Units Cap) 1 cap PO WED [facility] Last Admin: 12/11/16 09:33 Dose: 1 cap Fluconazole (Diflucan) 100 mg PO DAILY [facility] Last Admin: 12/12/16 08:23 Dose: 100 mg Gabapentin (Neurontin) 300 mg PO TID [facility] Last Admin: 12/12/16 12:47 Dose: 300 mg Hydrocortisone (Anusol-Hc) 1 applic [place] BID PRN PRN Reason: Inflammation Hydromorphone HCl (Dilaudid) 1 mg IVP Q2H PRN PRN Reason: Pain, severe (8-10) Last Admin: 12/12/16 12:07 Dose: 1 mg Meropenem 500 mg/ Sodium (Chloride) 100 mls @ 100 mls/hr IVPB DAILY@0100 [facility] Last Admin: 12/12/16 00:22 Dose: 100 mls/hr Gentamicin Sulfate/Sodium Chloride (Gentamicin 100mg/100ml Ns) 100 mg in 100 mls @ 100 mls/hr IVPB MWF [facility] Last Admin: 12/11/16 11:00 Dose: 100 mls/hr Tigecycline 25 mg/ Sodium (Chloride) 100 mls @ 100 mls/hr IVPB Q12 [facility] Last Admin: 12/12/16 08:22 Dose: 100 mls/hr Sodium Chloride (Sodium Chloride 0.45%) 500 mls @ 10 mls/hr IV .Q24H [facility] Last Admin: 12/09/16 23:18 Dose: 10 mls/hr Daptomycin 650 mg/ Sodium (Chloride) 100 mls @ 100 mls/hr IVPB MWF@1800 [facility] Stop: 12/16/16 18:59 Last Admin: 12/11/16 17:52 Dose: 100 mls/hr Nystatin (Nystop Topical Powder) 1 applic TOP BID [facility] Last Admin: 12/12/16 08:24 Dose: Not Given Ondansetron HCl (Zofran Inj) 4 mg IVP Q6 PRN PRN Reason: Nausea/Vomiting Last Admin: 09/19/16 10:26 Dose: 4 mg Pantoprazole Sodium (Protonix Ec Tab) 40 mg PO DAILY [facility] Last Admin: 12/12/16 08:24 Dose: 40 mg Repaglinide (Prandin) 0.5 mg PO TIDAC [facility] Last Admin: 12/12/16 12:47 Dose: 0.5 mg Sennosides (Senokot Tab) 25.8 mg PO HS [facility] Last Admin: 12/11/16 21:27 Dose: 25.8 mg Sevelamer HCl (Renagel) 1,600 mg PO TID [facility] Last Admin: 12/12/16 12:47 Dose: 1,600 mg Topiramate (Topamax) 50 mg PO BID [facility] Last Admin: 12/12/16 08:23 Dose: 50 mg Vitamin B Complex/Vit C/Folic Acid (Nephro-Ajay) 1 tab PO DAILY [facility] Last Admin: 12/12/16 08:24 Dose: 1 tab - Labs Labs: 12/10/16 14:00 12/06/16 11:30 PT 15.3 Seconds (9.8-13.1) H 12/02/16 13:05 INR 1.4 (0.9-1.2) H 12/02/16 13:05 APTT 37.0 Seconds (25.6-37.1) 12/02/16 13:05 Assessment and Plan - Assessment and Plan (Free Text) Plan: Patient seen and examined. Right BKA VAC changed at the bedside. BKA wound progresses toward healing with excellent granulation tissue and no evidence of gross tissue infection or necrosis. Patellar wound appears to improve slowly with Santyl treatment. Continue current wound care and supportive medical care. Will plan for next VAC change and wound examination in 4-5 days.
--- NOTE | 2016-12-12 10:14 | CP.PCM.PN ---
Subjective - Date & Time of Evaluation Date of Evaluation: 12/12/16 Time of Evaluation: 10:12 - Subjective Subjective: Patient is resting comfortably Vital signs stable Patient tolerated very well hemodialysis was potassium bath 2 mEq yesterday No new events reported wound care for the right stump as noted. by The primary team and the surgery. Continue the same for hemodialysis and MWF Objective - Vital Signs/Intake and Output Vital Signs (last 24 hours): Temp Pulse Resp BP Pulse Ox 97.6 F 110 H 20 132/79 99 12/12/16 08:04 12/12/16 08:04 12/12/16 08:04 12/12/16 08:04 12/12/16 08:04 - Medications Medications: Current Medications Acetaminophen (Tylenol 325mg Tab) 650 mg PO Q4 PRN PRN Reason: Fever >100.4 F Last Admin: 11/21/16 00:44 Dose: 650 mg Acetaminophen (Tylenol 325mg Tab) 650 mg PO Q4 PRN PRN Reason: Pain, moderate (4-7) Last Admin: 09/16/16 22:34 Dose: 650 mg Albuterol Sulfate (Albuterol 0.083% Inhal Barbie (2.5 Mg/3 Ml) Ud) 2.5 mg INH RQ4 PRN PRN Reason: Shortness of Breath Albuterol/Ipratropium (Duoneb 3 Mg/0.5 Mg (3 Ml) Ud) 3 ml INH RQ4 PRN PRN Reason: Shortness of Breath Last Admin: 11/11/16 07:39 Dose: 3 ml Apixaban (Eliquis) 5 mg PO BID [facility] PRN Reason: Protocol Last Admin: 12/12/16 08:24 Dose: 5 mg Aspirin (Ecotrin) 81 mg PO DAILY [facility] Last Admin: 12/12/16 08:23 Dose: 81 mg Atorvastatin Calcium (Lipitor) 40 mg PO DAILY [facility] Last Admin: 12/12/16 08:24 Dose: 40 mg Benzonatate (Tessalon Perles) 200 mg PO TID PRN PRN Reason: Cough Last Admin: 11/21/16 09:06 Dose: 200 mg Calcium Carbonate (Oscal) 500 mg PO BIDWM [facility] Last Admin: 12/12/16 08:23 Dose: 500 mg Cinacalcet (Sensipar) 30 mg PO DAILY [facility] Last Admin: 12/12/16 08:23 Dose: 30 mg Collagenase (Santyl) 1 applic TOP DAILY [facility] Last Admin: 12/12/16 08:25 Dose: 1 appl Diphenhydramine HCl (Benadryl) 25 mg PO Q6 PRN PRN Reason: Itching / Pruritus Last Admin: 11/12/16 08:34 Dose: 25 mg Docusate Sodium (Colace) 100 mg PO BID [facility] Last Admin: 12/12/16 08:23 Dose: 100 mg Epoetin Tha (Procrit) 20,000 unit IV MWF [facility] Last Admin: 12/11/16 11:46 Dose: 20,000 unit Ergocalciferol (Drisdol 50,000 Intl Units Cap) 1 cap PO WED [facility] Last Admin: 12/11/16 09:33 Dose: 1 cap Fluconazole (Diflucan) 100 mg PO DAILY [facility] Last Admin: 12/12/16 08:23 Dose: 100 mg Gabapentin (Neurontin) 300 mg PO TID [facility] Last Admin: 12/12/16 08:23 Dose: 300 mg Hydrocortisone (Anusol-Hc) 1 applic [place] BID PRN PRN Reason: Inflammation Hydromorphone HCl (Dilaudid) 1 mg IVP Q2H PRN PRN Reason: Pain, severe (8-10) Last Admin: 12/12/16 08:33 Dose: 1 mg Meropenem 500 mg/ Sodium (Chloride) 100 mls @ 100 mls/hr IVPB DAILY@0100 [facility] Last Admin: 12/12/16 00:22 Dose: 100 mls/hr Gentamicin Sulfate/Sodium Chloride (Gentamicin 100mg/100ml Ns) 100 mg in 100 mls @ 100 mls/hr IVPB MWF [facility] Last Admin: 12/11/16 11:00 Dose: 100 mls/hr Tigecycline 25 mg/ Sodium (Chloride) 100 mls @ 100 mls/hr IVPB Q12 [facility] Last Admin: 12/12/16 08:22 Dose: 100 mls/hr Sodium Chloride (Sodium Chloride 0.45%) 500 mls @ 10 mls/hr IV .Q24H [facility] Last Admin: 12/09/16 23:18 Dose: 10 mls/hr Daptomycin 650 mg/ Sodium (Chloride) 100 mls @ 100 mls/hr IVPB MWF@1800 [facility] Stop: 12/16/16 18:59 Last Admin: 12/11/16 17:52 Dose: 100 mls/hr Nystatin (Nystop Topical Powder) 1 applic TOP BID [facility] Last Admin: 12/12/16 08:24 Dose: Not Given Ondansetron HCl (Zofran Inj) 4 mg IVP Q6 PRN PRN Reason: Nausea/Vomiting Last Admin: 09/19/16 10:26 Dose: 4 mg Pantoprazole Sodium (Protonix Ec Tab) 40 mg PO DAILY [facility] Last Admin: 12/12/16 08:24 Dose: 40 mg Repaglinide (Prandin) 0.5 mg PO TIDAC [facility] Last Admin: 12/12/16 08:23 Dose: 0.5 mg Sennosides (Senokot Tab) 25.8 mg PO HS [facility] Last Admin: 12/11/16 21:27 Dose: 25.8 mg Sevelamer HCl (Renagel) 1,600 mg PO TID [facility] Last Admin: 12/12/16 08:23 Dose: 1,600 mg Topiramate (Topamax) 50 mg PO BID [facility] Last Admin: 12/12/16 08:23 Dose: 50 mg Vitamin B Complex/Vit C/Folic Acid (Nephro-Ajay) 1 tab PO DAILY [facility] Last Admin: 12/12/16 08:24 Dose: 1 tab - Labs Labs: 12/10/16 14:00 12/06/16 11:30 PT 15.3 Seconds (9.8-13.1) H 12/02/16 13:05 INR 1.4 (0.9-1.2) H 12/02/16 13:05 APTT 37.0 Seconds (25.6-37.1) 12/02/16 13:05 Assessment and Plan (1) ESRD (end stage renal disease) Status: Chronic (2) Cellulitis of leg Status: Chronic
--- NOTE | 2016-12-12 11:44 | PCM.OP ---
Operative Report - Operative Report Date of Surgery/Procedure: 12/03/16 Time of Surgery/Procedure: 01:00 Surgeon: Raffy DE LEON Account Management Specialist: Sb Groves DO Anesthesia/Sedation: LMA Pre-Operative Diagnosis: Right below knee amputation stump and right patellar wound Post-Operative Diagnosis: Right below knee amputation stump and right patellar wound Indication for Surgery: Patient is a 46-year old female with multiple severe comorbidities. She requires right below knee amputation approximately two months ago. Secondary to severe comorbidities impeding wound healing. Patient developed right below knee amputation tissue necrosis with ensuing infection. She underwent several debridement and revision of the BKA and more operations. This time, patient was recommended another debridement procedure to facilitate wound. Procedure was planned. The risk and benefits of the operation was clearly explained to the patient. They included infection, poor wound healing, need for further procedures and debridements, as well as conversion to above- knee amputation. With risk and benefits clearly explained to the patient and understood by her, she decided to proceed with the operation and signed informed consent. Operative Findings: please see body of the report Procedure/Operation Description: 1. Debridement and wash out of the right below knee amputation stump. Tefla wash, irrigation, and jamie dressing placement. 2. Sharp debridement of the right patellar wound. Patient was brought to the operating room. Right lower extremity was marked prior to coming to the OR. Right leg was prepped and draped in a sterile fashion. Existing dressing was removed prior to coming to the OR. Sharp debridement was used to remove scant amount of nonviable tissue around the right below knee amputation wound. Overall the wound was granulating very well with knife with oozing and beefing red granulation tissue. There was no flank, purulence, pus or significant amount of nonviable or necrotic tissue. Four liters of lavage irrigation, including normal salene and bacitracin were used to copiously irrigate the wound. After the irrigation, hemostasis was enforced using electrocautery and drape pressure. Vat dressing was brought to the field and applied to the right below knee amputation stump. Negative pressure was set to -125 mmHg and there was an excellent seal at the wound. Next I turned my attention to debridement of the right patellar wound. There was fibrinous necrotic eschar covering the wound, which measured approximately 14.6 cm in length 1.2 cm in width. Eschar was removed sharply. The wound process did not extend to the knee joint as far as I could christian science reader. The tissue below the eschar was debrided to the level of healthy looking and living tissue. Hemostasis was enforced with electrocautery and direct pressure. Patellar wound was covered with bacitracin, antibiotic ointment, and dressing was applied to cover the wound. Right below knee amputation stump was left upward with DEMIAN bandage for additional gentle compression and procedure was terminated. Patient woke up from anesthesia without complications and was transferred to post-anesthesia care unit in satisfactory condition. Estimated Blood Loss: 15cc Complications: none Discharge & Condition: satisfactory
--- NOTE | 2016-12-12 14:39 | CP.PCM.PN ---
Subjective - Date & Time of Evaluation Date of Evaluation: 12/12/16 Time of Evaluation: 14:36 - Subjective Subjective: Dr. Mccormack's note appreciated. Right BK wound appears to be healing slowly with no sign of infection. See his note for details. R patellar wound is also coming along with Santyl dressings. Pt continues on 4 IV and 1 po antibiotic. No adverse effects. Dr. Guadarrama's note appreciated. Hemodialysis is coming along with no complications. Glucoses running from low of 66 this morning to high of 159 yesterday afternoon - on po Prandin only. Dr. Ambrose is aware. No changes made. Patient is comfortable - awaiting phyical therapy this afternoon/ Appetite and elimination OK. No pain, fevers, cough, or dyspnea. Objective - Vital Signs/Intake and Output Vital Signs (last 24 hours): Temp Pulse Resp BP Pulse Ox 97.6 F 110 H 20 132/79 99 12/12/16 08:04 12/12/16 08:04 12/12/16 08:04 12/12/16 08:04 12/12/16 08:04 - Medications Medications: Current Medications Acetaminophen (Tylenol 325mg Tab) 650 mg PO Q4 PRN PRN Reason: Fever >100.4 F Last Admin: 11/21/16 00:44 Dose: 650 mg Acetaminophen (Tylenol 325mg Tab) 650 mg PO Q4 PRN PRN Reason: Pain, moderate (4-7) Last Admin: 09/16/16 22:34 Dose: 650 mg Albuterol Sulfate (Albuterol 0.083% Inhal Barbie (2.5 Mg/3 Ml) Ud) 2.5 mg INH RQ4 PRN PRN Reason: Shortness of Breath Albuterol/Ipratropium (Duoneb 3 Mg/0.5 Mg (3 Ml) Ud) 3 ml INH RQ4 PRN PRN Reason: Shortness of Breath Last Admin: 11/11/16 07:39 Dose: 3 ml Apixaban (Eliquis) 5 mg PO BID [facility] PRN Reason: Protocol Last Admin: 12/12/16 08:24 Dose: 5 mg Aspirin (Ecotrin) 81 mg PO DAILY [facility] Last Admin: 12/12/16 08:23 Dose: 81 mg Atorvastatin Calcium (Lipitor) 40 mg PO DAILY [facility] Last Admin: 12/12/16 08:24 Dose: 40 mg Benzonatate (Tessalon Perles) 200 mg PO TID PRN PRN Reason: Cough Last Admin: 11/21/16 09:06 Dose: 200 mg Calcium Carbonate (Oscal) 500 mg PO BIDWM [facility] Last Admin: 12/12/16 08:23 Dose: 500 mg Cinacalcet (Sensipar) 30 mg PO DAILY [facility] Last Admin: 12/12/16 08:23 Dose: 30 mg Collagenase (Santyl) 1 applic TOP DAILY [facility] Last Admin: 12/12/16 08:25 Dose: 1 appl Diphenhydramine HCl (Benadryl) 25 mg PO Q6 PRN PRN Reason: Itching / Pruritus Last Admin: 11/12/16 08:34 Dose: 25 mg Docusate Sodium (Colace) 100 mg PO BID [facility] Last Admin: 12/12/16 08:23 Dose: 100 mg Epoetin Tha ([facility]crit) [facility] Last Admin: 12/11/16 11:46 Dose: 20,000 unit Ergocalciferol (Drisdol 50,000 Intl Units Cap) 1 cap PO WED [facility] Last Admin: 12/11/16 09:33 Dose: 1 cap Fluconazole (Diflucan) 100 mg PO DAILY [facility] Last Admin: 12/12/16 08:23 Dose: 100 mg Gabapentin (Neurontin) 300 mg PO TID [facility] Last Admin: 12/12/16 12:47 Dose: 300 mg Hydrocortisone (Anusol-Hc) 1 applic [place] BID PRN PRN Reason: Inflammation Hydromorphone HCl (Dilaudid) 1 mg IVP Q2H PRN PRN Reason: Pain, severe (8-10) Last Admin: 12/12/16 12:07 Dose: 1 mg Meropenem 500 mg/ Sodium (Chloride) 100 mls @ 100 mls/hr IVPB DAILY@0100 [facility] Last Admin: 12/12/16 00:22 Dose: 100 mls/hr Gentamicin Sulfate/Sodium Chloride (Gentamicin 100mg/100ml Ns) 100 mg in 100 mls @ 100 mls/hr IVPB MWF [facility] Last Admin: 12/11/16 11:00 Dose: 100 mls/hr Tigecycline 25 mg/ Sodium (Chloride) 100 mls @ 100 mls/hr IVPB Q12 [facility] Last Admin: 12/12/16 08:22 Dose: 100 mls/hr Sodium Chloride (Sodium Chloride 0.45%) 500 mls @ 10 mls/hr IV .Q24H [facility] Last Admin: 12/09/16 23:18 Dose: 10 mls/hr Daptomycin 650 mg/ Sodium (Chloride) 100 mls @ 100 mls/hr IVPB MWF@1800 [facility] Stop: 12/16/16 18:59 Last Admin: 12/11/16 17:52 Dose: 100 mls/hr Nystatin (Nystop Topical Powder) 1 applic TOP BID [facility] Last Admin: 12/12/16 08:24 Dose: Not Given Ondansetron HCl (Zofran Inj) 4 mg IVP Q6 PRN PRN Reason: Nausea/Vomiting Last Admin: 09/19/16 10:26 Dose: 4 mg Pantoprazole Sodium (Protonix Ec Tab) 40 mg PO DAILY [facility] Last Admin: 12/12/16 08:24 Dose: 40 mg Repaglinide (Prandin) 0.5 mg PO TIDAC [facility] Last Admin: 12/12/16 12:47 Dose: 0.5 mg Sennosides (Senokot Tab) 25.8 mg PO HS [facility] Last Admin: 12/11/16 21:27 Dose: 25.8 mg Sevelamer HCl (Renagel) 1,600 mg PO TID [facility] Last Admin: 12/12/16 12:47 Dose: 1,600 mg Topiramate (Topamax) 50 mg PO BID [facility] Last Admin: 12/12/16 08:23 Dose: 50 mg Vitamin B Complex/Vit C/Folic Acid (Nephro-Ajay) 1 tab PO DAILY [facility] Last Admin: 12/12/16 08:24 Dose: 1 tab - Labs Labs: 12/10/16 14:00 12/06/16 11:30 PT 15.3 Seconds (9.8-13.1) H 12/02/16 13:05 INR 1.4 (0.9-1.2) H 12/02/16 13:05 APTT 37.0 Seconds (25.6-37.1) 12/02/16 13:05 - Constitutional Appears: No Acute Distress - Head Exam Head Exam: NORMAL INSPECTION - Eye Exam Eye Exam: Normal appearance - ENT Exam ENT Exam: Mucous Membranes Moist - Neck Exam Neck Exam: Normal Inspection Additional comments: R subclavian Permacath intact. - Respiratory Exam Respiratory Exam: Clear to Ausculation Bilateral, NORMAL BREATHING PATTERN - Cardiovascular Exam Cardiovascular Exam: REGULAR RHYTHM, +S1, +S2 - GI/Abdominal Exam GI & Abdominal Exam: Soft - Extremities Exam Additional comments: Right BK wound vac in place with no leak and less drainage. R patellar dressing intact. L femoral vein PICC line intact. - Back Exam Back Exam: NORMAL INSPECTION - Neurological Exam Neurological Exam: Alert, CN II-XII Intact, Oriented x3 - Psychiatric Exam Psychiatric exam: Normal Affect, Normal Mood - Skin Skin Exam: Dry, Normal Color, Warm Assessment and Plan (1) Status post below knee amputation of right lower extremity Assessment & Plan: Continues to make slow progress. Status: Acute (2) ESRD (end stage renal disease) on dialysis Status: Chronic (3) DM type 2 (diabetes mellitus, type 2) Assessment & Plan: Will watch glucose levels carefully. So far, doing well on oral Prandin. Status: Chronic (4) Coagulopathy Status: Chronic (5) Peripheral arterial occlusive disease Status: Chronic
--- NOTE | 2016-12-12 22:20 | CP.PCM.PN ---
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 This might help her Physical Therapy to allow her to walk with prosthesis. She is interactive and is feeling better. The patient's tests are showing controlled Glucose Levels. There is no reported seizures and she is receiving Po Topamax 50 mg BID. She is getting her Hemodialysis as a routine on ,,. She inquires less medicine for pain. Objective - Vital Signs/Intake and Output Vital Signs (last 24 hours): Temp Pulse Resp BP Pulse Ox 97.4 F L 110 H 18 105/71 98 12/12/16 15:50 12/12/16 15:50 12/12/16 15:50 12/12/16 15:50 12/12/16 15:50 - Medications Medications: Current Medications Acetaminophen (Tylenol 325mg Tab) 650 mg PO Q4 PRN PRN Reason: Fever >100.4 F Last Admin: 11/21/16 00:44 Dose: 650 mg Acetaminophen (Tylenol 325mg Tab) 650 mg PO Q4 PRN PRN Reason: Pain, moderate (4-7) Last Admin: 09/16/16 22:34 Dose: 650 mg Albuterol Sulfate (Albuterol 0.083% Inhal Barbie (2.5 Mg/3 Ml) Ud) 2.5 mg INH RQ4 PRN PRN Reason: Shortness of Breath Albuterol/Ipratropium (Duoneb 3 Mg/0.5 Mg (3 Ml) Ud) 3 ml INH RQ4 PRN PRN Reason: Shortness of Breath Last Admin: 11/11/16 07:39 Dose: 3 ml Apixaban (Eliquis) 5 mg PO BID JASPER PRN Reason: Protocol Last Admin: 12/12/16 17:43 Dose: 5 mg Aspirin (Ecotrin) 81 mg PO DAILY [facility] Last Admin: 12/12/16 08:23 Dose: 81 mg Atorvastatin Calcium (Lipitor) 40 mg PO DAILY [facility] Last Admin: 12/12/16 08:24 Dose: 40 mg Benzonatate (Tessalon Perles) 200 mg PO TID PRN PRN Reason: Cough Last Admin: 11/21/16 09:06 Dose: 200 mg Calcium Carbonate (Oscal) 500 mg PO BIDWM [facility] Last Admin: 12/12/16 17:44 Dose: 500 mg Cinacalcet (Sensipar) 30 mg PO DAILY [facility] Last Admin: 12/12/16 08:23 Dose: 30 mg Collagenase (Santyl) 1 applic TOP DAILY [facility] Last Admin: 12/12/16 08:25 Dose: 1 appl Diphenhydramine HCl (Benadryl) 25 mg PO Q6 PRN PRN Reason: Itching / Pruritus Last Admin: 11/12/16 08:34 Dose: 25 mg Docusate Sodium (Colace) 100 mg PO BID [facility] Last Admin: 12/12/16 17:43 Dose: 100 mg Epoetin Tha (Procrit) 20,000 unit IV [facility] Last Admin: 12/11/16 11:46 Dose: 20,000 unit Ergocalciferol (Drisdol 50,000 Intl Units Cap) 1 cap PO WED [facility] Last Admin: 12/11/16 09:33 Dose: 1 cap Fluconazole (Diflucan) 100 mg PO DAILY [facility] Last Admin: 12/12/16 08:23 Dose: 100 mg Gabapentin (Neurontin) 300 mg PO TID [facility] Last Admin: 12/12/16 17:43 Dose: 300 mg Hydrocortisone (Anusol-Hc) 1 applic [place] BID PRN PRN Reason: Inflammation Hydromorphone HCl (Dilaudid) 1 mg IVP Q2H PRN PRN Reason: Pain, severe (8-10) Last Admin: 12/12/16 19:59 Dose: 1 mg Meropenem 500 mg/ Sodium (Chloride) 100 mls @ 100 mls/hr IVPB DAILY@0100 [facility] Last Admin: 12/12/16 00:22 Dose: 100 mls/hr Gentamicin Sulfate/Sodium Chloride (Gentamicin 100mg/100ml Ns) 100 mg in 100 mls @ 100 mls/hr IVPB MWF [facility] Last Admin: 12/11/16 11:00 Dose: 100 mls/hr Tigecycline 25 mg/ Sodium (Chloride) 100 mls @ 100 mls/hr IVPB Q12 [facility] Last Admin: 12/12/16 20:00 Dose: 100 mls/hr Sodium Chloride (Sodium Chloride 0.45%) 500 mls @ 10 mls/hr IV .Q24H [facility] Last Admin: 12/09/16 23:18 Dose: 10 mls/hr Daptomycin 650 mg/ Sodium (Chloride) 100 mls @ 100 mls/hr IVPB MWF@1800 [facility] Stop: 12/16/16 18:59 Last Admin: 12/11/16 17:52 Dose: 100 mls/hr Nystatin (Nystop Topical Powder) 1 applic TOP BID [facility] Last Admin: 12/12/16 17:44 Dose: Not Given Ondansetron HCl (Zofran Inj) 4 mg IVP Q6 PRN PRN Reason: Nausea/Vomiting Last Admin: 09/19/16 10:26 Dose: 4 mg Pantoprazole Sodium (Protonix Ec Tab) 40 mg PO DAILY [facility] Last Admin: 12/12/16 08:24 Dose: 40 mg Repaglinide (Prandin) 0.5 mg PO TIDAC [facility] Last Admin: 12/12/16 17:42 Dose: 0.5 mg Sennosides (Senokot Tab) 25.8 mg PO HS [facility] Last Admin: 12/11/16 21:27 Dose: 25.8 mg Sevelamer HCl (Renagel) 1,600 mg PO TID [facility] Last Admin: 12/12/16 17:42 Dose: 1,600 mg Topiramate (Topamax) 50 mg PO BID [facility] Last Admin: 12/12/16 17:42 Dose: 50 mg Vitamin B Complex/Vit C/Folic Acid (Nephro-Ajay) 1 tab PO DAILY [facility] Last Admin: 12/12/16 08:24 Dose: 1 tab - Labs Labs: 12/10/16 14:00 12/06/16 11:30 PT 15.3 Seconds (9.8-13.1) H 12/02/16 13:05 INR 1.4 (0.9-1.2) H 12/02/16 13:05 APTT 37.0 Seconds (25.6-37.1) 12/02/16 13:05 Assessment and Plan (1) Diabetes Status: Chronic (2) ESRD (end stage renal disease) Status: Chronic (3) Cellulitis of leg Status: Chronic (4) Hyperlipidemia Status: Chronic (5) Back pain Status: Acute (6) Bacteremia due to Gram-negative bacteria Status: Acute (7) Diabetes mellitus type 2 with peripheral artery disease Status: Chronic (8) PVD (peripheral vascular disease) Status: Chronic (9) Osteomyelitis of right leg Status: Acute
[2016-12-13] MEDS: Meropenem 500 MG in Sodium Chloride 0.9% 100 ML IVPB SCH (00:07)
[2016-12-13] MEDS: HYDROmorphone 0.5 mg/0.5 ml ISec IVP PRN ×5 (06:11→20:36)
[2016-12-13] MEDS: Epoetin Alfa 20000 UNIT/ML Inj IV SCH (08:13)
[2016-12-13] MEDS: Pantoprazole 40 mg EC Tab PO SCH (08:14)
[2016-12-13] MEDS: Multivitamin Vitamin B Complex (Nephro-Vite) Tab PO SCH (08:15)
[2016-12-13] MEDS: Gentamicin 100mg/100ml NS 100 MG/100 ML BAG IVPB SCH (09:53)
[2016-12-13] MEDS: SODIUM CHLORIDE 0.9% IVPB SCH ×2 (09:53→20:43)
[2016-12-13] MEDS: TIGECYCLINE IVPB SCH ×2 (09:53→20:43)
--- NOTE | 2016-12-13 11:08 | CP.PCM.PN ---
Subjective - Date & Time of Evaluation Date of Evaluation: 12/13/16 Time of Evaluation: 11:07 - Subjective Subjective: She was seen on hemodialysis now Vital signs stable Recent tolerating treatment No new event reported Potassium 20 mEq Sodium 138 Bicarbonate 34 Chest no rales Heart no rubs Abdomen soft Impression and plan End stage renal disease receiving dialysis MWF Management of the stump and infection as per primary team. Objective - Vital Signs/Intake and Output Vital Signs (last 24 hours): Temp Pulse Resp BP Pulse Ox 97.7 F 113 H 20 108/82 97 12/13/16 08:10 12/13/16 08:10 12/13/16 08:10 12/13/16 08:10 12/13/16 08:10 - Medications Medications: Current Medications Acetaminophen (Tylenol 325mg Tab) 650 mg PO Q4 PRN PRN Reason: Fever >100.4 F Last Admin: 11/21/16 00:44 Dose: 650 mg Acetaminophen (Tylenol 325mg Tab) 650 mg PO Q4 PRN PRN Reason: Pain, moderate (4-7) Last Admin: 09/16/16 22:34 Dose: 650 mg Albuterol Sulfate (Albuterol 0.083% Inhal Barbie (2.5 Mg/3 Ml) Ud) 2.5 mg INH RQ4 PRN PRN Reason: Shortness of Breath Albuterol/Ipratropium (Duoneb 3 Mg/0.5 Mg (3 Ml) Ud) 3 ml INH RQ4 PRN PRN Reason: Shortness of Breath Last Admin: 11/11/16 07:39 Dose: 3 ml Apixaban (Eliquis) 5 mg PO BID [facility]S [facility] PRN Reason: Protocol Last Admin: 12/13/16 09:56 Dose: 5 mg Aspirin (Ecotrin) 81 mg PO DAILY [facility] 234 [facility] Last Admin: 12/13/16 08:15 Dose: 81 mg Atorvastatin Calcium (Lipitor) 40 mg PO DAILY [facility] 234 [facility]S [facility] Last Admin: 12/13/16 08:14 Dose: 40 mg Benzonatate (Tessalon Perles) 200 mg PO TID PRN PRN Reason: Cough Last Admin: 11/21/16 09:06 Dose: 200 mg Calcium Carbonate (Oscal) 500 mg PO BIDWM COUNTS INCLUDE 234 BEDS [facility] Last Admin: 12/13/16 08:15 Dose: 500 mg Cinacalcet (Sensipar) 30 mg PO DAILY [facility] 234 [facility]S [facility] Last Admin: 12/13/16 08:14 Dose: 30 mg Collagenase (Santyl) 1 applic TOP DAILY [facility] 234 [facility]S [facility] Last Admin: 12/12/16 08:25 Dose: 1 appl Diphenhydramine HCl (Benadryl) 25 mg PO Q6 PRN PRN Reason: Itching / Pruritus Last Admin: 11/12/16 08:34 Dose: 25 mg Docusate Sodium (Colace) 100 mg PO BID [facility] 234 [facility]S [facility] Last Admin: 12/13/16 08:12 Dose: 100 mg Epoetin Tha (Procrit) 20,000 unit IV MWF [facility] 234 [facility]S [facility] Last Admin: 12/13/16 08:13 Dose: 20,000 unit Ergocalciferol (Drisdol 50,000 Intl Units Cap) 1 cap PO WED [facility] 234 [facility]S [facility] Last Admin: 12/11/16 09:33 Dose: 1 cap Fluconazole (Diflucan) 100 mg PO DAILY [facility] 234 [facility]S [facility] Last Admin: 12/13/16 08:14 Dose: 100 mg Gabapentin (Neurontin) 300 mg PO TID [facility] 234 [facility]S [facility] Last Admin: 12/13/16 08:15 Dose: 300 mg Hydrocortisone (Anusol-Hc) 1 applic [place] BID PRN PRN Reason: Inflammation Hydromorphone HCl (Dilaudid) 1 mg IVP Q2H PRN PRN Reason: Pain, severe (8-10) Last Admin: 12/13/16 09:53 Dose: 1 mg Meropenem 500 mg/ Sodium (Chloride) 100 mls @ 100 mls/hr IVPB DAILY@0100 [facility] 234 [facility]S [facility] Last Admin: 12/13/16 00:07 Dose: 100 mls/hr Gentamicin Sulfate/Sodium Chloride (Gentamicin 100mg/100ml Ns) 100 mg in 100 mls @ 100 mls/hr IVPB MWF [facility] 234 [facility]S [facility] Last Admin: 12/13/16 09:53 Dose: 100 mls/hr Tigecycline 25 mg/ Sodium (Chloride) 100 mls @ 100 mls/hr IVPB Q12 [facility] 234 [facility]S [facility] Last Admin: 12/13/16 09:53 Dose: 100 mls/hr Sodium Chloride (Sodium Chloride 0.45%) 500 mls @ 10 mls/hr IV .Q24H [facility] 234 [facility]S [facility] Last Admin: 12/09/16 23:18 Dose: 10 mls/hr Daptomycin 650 mg/ Sodium (Chloride) 100 mls @ 100 mls/hr IVPB MWF@1800 [facility] 234 [facility]S [facility] Stop: 12/16/16 18:59 Last Admin: 12/11/16 17:52 Dose: 100 mls/hr Nystatin (Nystop Topical Powder) 1 applic TOP BID [facility] 234 [facility]S [facility] Last Admin: 12/13/16 08:15 Dose: Not Given Ondansetron HCl (Zofran Inj) 4 mg IVP Q6 PRN PRN Reason: Nausea/Vomiting Last Admin: 09/19/16 10:26 Dose: 4 mg Pantoprazole Sodium (Protonix Ec Tab) 40 mg PO DAILY [facility] 234 [facility] Last Admin: 12/13/16 08:14 Dose: 40 mg Repaglinide (Prandin) 0.5 mg PO TIDAC [facility] 234 [facility]S [facility] Last Admin: 12/13/16 08:15 Dose: 0.5 mg Sennosides (Senokot Tab) 25.8 mg PO HS [facility] 234 [facility]S [facility] Last Admin: 12/12/16 22:00 Dose: 25.8 mg Sevelamer HCl (Renagel) 1,600 mg PO TID [facility] 234 [facility]S [facility] Last Admin: 12/13/16 08:13 Dose: 1,600 mg Topiramate (Topamax) 50 mg PO BID [facility] 234 [facility]S [facility] Last Admin: 12/13/16 08:14 Dose: 50 mg Vitamin B Complex/Vit C/Folic Acid (Nephro-Ajay) 1 tab PO DAILY [facility] 234 [facility]S [facility] Last Admin: 12/13/16 08:15 Dose: 1 tab - Labs Labs: 12/10/16 14:00 12/06/16 11:30 PT 15.3 Seconds (9.8-13.1) H 12/02/16 13:05 INR 1.4 (0.9-1.2) H 12/02/16 13:05 APTT 37.0 Seconds (25.6-37.1) 12/02/16 13:05 Assessment and Plan (1) ESRD (end stage renal disease) Status: Chronic (2) Cellulitis of leg Status: Chronic
--- NOTE | 2016-12-13 14:08 | PN ---
DATE: 12/13/2016 ENDO FOLLOWUP NOTE LOCATION: Room 661. SUBJECTIVE: This is a 46-year-old female with recent right below-knee amputation for severe underlying osteomyelitis and is now being followed closely for metabolic management. Her glycemic levels have much improved at this time. On the latest glucose levels have ranged from 84-124 mg/dL. So at this time, we will continue the same, low-dose oral hypoglycemic drugs therapy with Prandin given as 0.5 mg p.o. t.i.d. before meals as given. We will titrate incrementally as indicated to optimize metabolic control. We will follow with you. Irene Ambrose MD
--- NOTE | 2016-12-13 14:27 | CP.PCM.PN ---
Subjective - Date & Time of Evaluation Date of Evaluation: 12/13/16 Time of Evaluation: 14:22 - Subjective Subjective: Patient had hemodialysis early this morning, so she is waiting to start physical therapy now. The plan is to get her to stand on her left BK prosthesis today. She has been doing well propelling herself around on the unit in a standard wc. Wound vac continues to the Right BK site - with no leakage and less drainage. Daily dressings with Santyl and wet-to-dry saline continue. She requires the 4 iv antibiotics and 1 po antibiotic because of osteomyelitis. This will need to be continued until the wound is completely healed. We must watch the daptomycin since the computer will automatically stop this on 12/16. Therefore, it will have to be re-ordered on 12/16, and no notice will be given. Diabetes is qell controlled with glucoses ranging from 124 to 84 - on Prandin 0.5mg tid ac. Continues on Eliquis and aspirin for anticoagulation. Continues on Topamax for previous seizure. No further vaginal bleeding since previous endomerial ablation surgery - so Hgb has been holding around 10. CBC and CMP ordered to be done on 12/16 by dialysis nurse. Objective - Vital Signs/Intake and Output Vital Signs (last 24 hours): Temp Pulse Resp BP Pulse Ox 97.7 F 113 H 20 108/82 97 12/13/16 08:10 12/13/16 08:10 12/13/16 08:10 12/13/16 08:10 12/13/16 08:10 - Medications Medications: Current Medications Acetaminophen (Tylenol 325mg Tab) 650 mg PO Q4 PRN PRN Reason: Fever >100.4 F Last Admin: 11/21/16 00:44 Dose: 650 mg Acetaminophen (Tylenol 325mg Tab) 650 mg PO Q4 PRN PRN Reason: Pain, moderate (4-7) Last Admin: 09/16/16 22:34 Dose: 650 mg Albuterol Sulfate (Albuterol 0.083% Inhal Barbie (2.5 Mg/3 Ml) Ud) 2.5 mg INH RQ4 PRN PRN Reason: Shortness of Breath Albuterol/Ipratropium (Duoneb 3 Mg/0.5 Mg (3 Ml) Ud) 3 ml INH RQ4 PRN PRN Reason: Shortness of Breath Last Admin: 11/11/16 07:39 Dose: 3 ml Apixaban (Eliquis) 5 mg PO BID [facility] PRN Reason: Protocol Last Admin: 12/13/16 09:56 Dose: 5 mg Aspirin (Ecotrin) 81 mg PO DAILY [facility] Last Admin: 12/13/16 08:15 Dose: 81 mg Atorvastatin Calcium (Lipitor) 40 mg PO DAILY [facility] Last Admin: 12/13/16 08:14 Dose: 40 mg Benzonatate (Tessalon Perles) 200 mg PO TID PRN PRN Reason: Cough Last Admin: 11/21/16 09:06 Dose: 200 mg Calcium Carbonate (Oscal) 500 mg PO BIDWM [facility] Last Admin: 12/13/16 08:15 Dose: 500 mg Cinacalcet (Sensipar) 30 mg PO DAILY [facility] Last Admin: 12/13/16 08:14 Dose: 30 mg Collagenase (Santyl) 1 applic TOP DAILY [facility] Last Admin: 12/12/16 08:25 Dose: 1 appl Diphenhydramine HCl (Benadryl) 25 mg PO Q6 PRN PRN Reason: Itching / Pruritus Last Admin: 11/12/16 08:34 Dose: 25 mg Docusate Sodium (Colace) 100 mg PO BID [facility] Last Admin: 12/13/16 08:12 Dose: 100 mg Epoetin Tha (Procrit) 20,000 unit IV MWF [facility] Last Admin: 12/13/16 08:13 Dose: 20,000 unit Ergocalciferol (Drisdol 50,000 Intl Units Cap) 1 cap PO WED [facility] Last Admin: 12/11/16 09:33 Dose: 1 cap Fluconazole (Diflucan) 100 mg PO DAILY [facility] Last Admin: 12/13/16 08:14 Dose: 100 mg Gabapentin (Neurontin) 300 mg PO TID [facility] Last Admin: 12/13/16 13:09 Dose: 300 mg Hydrocortisone (Anusol-Hc) 1 applic [place] BID PRN PRN Reason: Inflammation Hydromorphone HCl (Dilaudid) 1 mg IVP Q2H PRN PRN Reason: Pain, severe (8-10) Last Admin: 12/13/16 13:07 Dose: 1 mg Meropenem 500 mg/ Sodium (Chloride) 100 mls @ 100 mls/hr IVPB DAILY@0100 [facility] Last Admin: 12/13/16 00:07 Dose: 100 mls/hr Gentamicin Sulfate/Sodium Chloride (Gentamicin 100mg/100ml Ns) 100 mg in 100 mls @ 100 mls/hr IVPB MWF [facility] Last Admin: 12/13/16 09:53 Dose: 100 mls/hr Tigecycline 25 mg/ Sodium (Chloride) 100 mls @ 100 mls/hr IVPB Q12 [facility] Last Admin: 12/13/16 09:53 Dose: 100 mls/hr Sodium Chloride (Sodium Chloride 0.45%) 500 mls @ 10 mls/hr IV .Q24H [facility] Last Admin: 12/09/16 23:18 Dose: 10 mls/hr Daptomycin 650 mg/ Sodium (Chloride) 100 mls @ 100 mls/hr IVPB MWF@1800 [facility] Stop: 12/16/16 18:59 Last Admin: 12/11/16 17:52 Dose: 100 mls/hr Nystatin (Nystop Topical Powder) 1 applic TOP BID [facility] Last Admin: 12/13/16 08:15 Dose: Not Given Ondansetron HCl (Zofran Inj) 4 mg IVP Q6 PRN PRN Reason: Nausea/Vomiting Last Admin: 09/19/16 10:26 Dose: 4 mg Pantoprazole Sodium (Protonix Ec Tab) 40 mg PO DAILY [facility] Last Admin: 12/13/16 08:14 Dose: 40 mg Repaglinide (Prandin) 0.5 mg PO TIDAC [facility] Last Admin: 12/13/16 13:08 Dose: 0.5 mg Sennosides (Senokot Tab) 25.8 mg PO HS [facility] Last Admin: 12/12/16 22:00 Dose: 25.8 mg Sevelamer HCl (Renagel) 1,600 mg PO TID [facility] Last Admin: 12/13/16 13:08 Dose: 1,600 mg Topiramate (Topamax) 50 mg PO BID [facility] Last Admin: 12/13/16 08:14 Dose: 50 mg Vitamin B Complex/Vit C/Folic Acid (Nephro-Ajay) 1 tab PO DAILY [facility] Last Admin: 12/13/16 08:15 Dose: 1 tab - Labs Labs: 12/10/16 14:00 12/06/16 11:30 PT 15.3 Seconds (9.8-13.1) H 07/24/17 13:05 INR 1.4 (0.9-1.2) H 12/02/16 13:05 APTT 37.0 Seconds (25.6-37.1) 12/02/16 13:05 - Constitutional Appears: No Acute Distress - Head Exam Head Exam: NORMAL INSPECTION - Eye Exam Eye Exam: Normal appearance - ENT Exam ENT Exam: Mucous Membranes Moist - Neck Exam Neck Exam: Normal Inspection Additional comments: R sublclavian catheter intact. - Respiratory Exam Respiratory Exam: Clear to Ausculation Bilateral, NORMAL BREATHING PATTERN - Cardiovascular Exam Cardiovascular Exam: REGULAR RHYTHM, +S1 - GI/Abdominal Exam GI & Abdominal Exam: Soft, Normal Bowel Sounds - Back Exam Back Exam: NORMAL INSPECTION - Neurological Exam Neurological Exam: Alert, CN II-XII Intact, Oriented x3 - Psychiatric Exam Psychiatric exam: Normal Affect, Normal Mood - Skin Skin Exam: Dry, Normal Color, Warm Assessment and Plan (1) Status post below knee amputation of right lower extremity Assessment & Plan: Continues to make progress. Wound vac to be changed early next week. Continue same antibiotics and wound care. SEE SUBJECTIVE. Status: Acute (2) ESRD (end stage renal disease) on dialysis Status: Chronic (3) DM type 2 (diabetes mellitus, type 2) Assessment & Plan: DM controlled - managment by Dr. Ambrose, Status: Chronic (4) Coagulopathy Status: Chronic (5) Peripheral arterial occlusive disease Status: Chronic - Assessment and Plan (Free Text) Assessment: Blood work (CBC and CMP) ordered for 12/16.
--- NOTE | 2016-12-13 15:16 | PN ---
DATE: LOCATION: Room 661. This is a 46-year-old female with recent uncontrolled type 2 insulin requiring diabetes now remarkable glycemic improvements on drugs oral hypoglycemia therapy with the recent discontinuation of her basal and bolus insulin regimen as ordered. Her glucose values today have ranged from 66 to 159 mg/dL. Her latest chemistry showed BUN of 59, sodium 140, potassium 5.2,chloride 102, CO2 is 23, glucose 60 and creatinine 6.0. So, at this time, we will continue the Prandin given as 0.5 mg p.o. t.i.d. before meals as ordered. We will titrate incrementally as indicated to optimize metabolic control. We will follow with you. Irene Ambrose MD
[2016-12-13] MEDS: Santyl Collagenase OINTMENT TOP SCH (16:11)
--- NOTE | 2016-12-13 23:17 | CP.PCM.PN ---
Subjective - Date & Time of Evaluation Date of Evaluation: 12/13/16 Time of Evaluation: 19:40 - Subjective Subjective: Patient is recovering and she has good chances on using her both BKA stumps bilaterally. She received today her Hemodialysis of Friday. She is not reported having any seizures while on Topamax. Her DM is controlled, the Blood glucose was slightly low at 60 in her last test. Now her Serum glucose is above 140. Objective - Vital Signs/Intake and Output Vital Signs (last 24 hours): Temp Pulse Resp BP Pulse Ox 97.6 F 110 H 18 115/83 99 12/13/16 16:06 12/13/16 16:06 12/13/16 16:06 12/13/16 16:06 12/13/16 16:06 Intake and Output: 12/13/16 12/14/16 18:59 06:59 Intake Total 320 Output Total 130 Balance 190 - Medications Medications: Current Medications Acetaminophen (Tylenol 325mg Tab) 650 mg PO Q4 PRN PRN Reason: Fever >100.4 F Last Admin: 11/21/16 00:44 Dose: 650 mg Acetaminophen (Tylenol 325mg Tab) 650 mg PO Q4 PRN PRN Reason: Pain, moderate (4-7) Last Admin: 09/16/16 22:34 Dose: 650 mg Albuterol Sulfate (Albuterol 0.083% Inhal Barbie (2.5 Mg/3 Ml) Ud) 2.5 mg INH RQ4 PRN PRN Reason: Shortness of Breath Albuterol/Ipratropium (Duoneb 3 Mg/0.5 Mg (3 Ml) Ud) 3 ml INH RQ4 PRN PRN Reason: Shortness of Breath Last Admin: 11/11/16 07:39 Dose: 3 ml Apixaban (Eliquis) 5 mg PO BID [facility] PRN Reason: Protocol Last Admin: 12/13/16 16:11 Dose: 5 mg Aspirin (Ecotrin) 81 mg PO DAILY [facility] Last Admin: 12/13/16 08:15 Dose: 81 mg Atorvastatin Calcium (Lipitor) 40 mg PO DAILY [facility] Last Admin: 12/13/16 08:14 Dose: 40 mg Benzonatate (Tessalon Perles) 200 mg PO TID PRN PRN Reason: Cough Last Admin: 11/21/16 09:06 Dose: 200 mg Calcium Carbonate (Oscal) 500 mg PO BIDWM [facility] Last Admin: 12/13/16 16:11 Dose: 500 mg Cinacalcet (Sensipar) 30 mg PO DAILY [facility] Last Admin: 12/13/16 08:14 Dose: 30 mg Collagenase (Santyl) 1 applic TOP DAILY [facility] Last Admin: 12/13/16 16:11 Dose: 1 applic Diphenhydramine HCl (Benadryl) 25 mg PO Q6 PRN PRN Reason: Itching / Pruritus Last Admin: 11/12/16 08:34 Dose: 25 mg Docusate Sodium (Colace) 100 mg PO BID [facility] Last Admin: 12/13/16 16:13 Dose: 100 mg Epoetin Tha (Procrit) 20,000 unit IV [facility] Last Admin: 12/13/16 08:13 Dose: 20,000 unit Ergocalciferol (Drisdol 50,000 Intl Units Cap) 1 cap PO WED [facility] Last Admin: 12/11/16 09:33 Dose: 1 cap Fluconazole (Diflucan) 100 mg PO DAILY [facility] Last Admin: 12/13/16 08:14 Dose: 100 mg Gabapentin (Neurontin) 300 mg PO TID [facility] Last Admin: 12/13/16 16:12 Dose: 300 mg Hydrocortisone (Anusol-Hc) 1 applic [place] BID PRN PRN Reason: Inflammation Hydromorphone HCl (Dilaudid) 1 mg IVP Q2H PRN PRN Reason: Pain, severe (8-10) Last Admin: 12/13/16 20:36 Dose: 1 mg Meropenem 500 mg/ Sodium (Chloride) 100 mls @ 100 mls/hr IVPB DAILY@0100 [facility] Last Admin: 12/13/16 00:07 Dose: 100 mls/hr Gentamicin Sulfate/Sodium Chloride (Gentamicin 100mg/100ml Ns) 100 mg in 100 mls @ 100 mls/hr IVPB MWF [facility] Last Admin: 12/13/16 09:53 Dose: 100 mls/hr Tigecycline 25 mg/ Sodium (Chloride) 100 mls @ 100 mls/hr IVPB Q12 [facility] Last Admin: 12/13/16 20:43 Dose: 100 mls/hr Sodium Chloride (Sodium Chloride 0.45%) 500 mls @ 10 mls/hr IV .Q24H [facility] Last Admin: 12/13/16 16:13 Dose: 10 mls/hr Daptomycin 650 mg/ Sodium (Chloride) 100 mls @ 100 mls/hr IVPB MWF@1800 [facility] Stop: 12/16/16 18:59 Last Admin: 12/13/16 18:09 Dose: 100 mls/hr Nystatin (Nystop Topical Powder) 1 applic TOP BID [facility] Last Admin: 12/13/16 16:13 Dose: Not Given Ondansetron HCl (Zofran Inj) 4 mg IVP Q6 PRN PRN Reason: Nausea/Vomiting Last Admin: 09/19/16 10:26 Dose: 4 mg Pantoprazole Sodium (Protonix Ec Tab) 40 mg PO DAILY [facility] Last Admin: 12/13/16 08:14 Dose: 40 mg Repaglinide (Prandin) 0.5 mg PO TIDAC [facility] Last Admin: 12/13/16 16:13 Dose: 0.5 mg Sennosides (Senokot Tab) 25.8 mg PO HS [facility] Last Admin: 12/13/16 21:36 Dose: 25.8 mg Sevelamer HCl (Renagel) 1,600 mg PO TID [facility] Last Admin: 12/13/16 16:12 Dose: 1,600 mg Topiramate (Topamax) 50 mg PO BID [facility] Last Admin: 12/13/16 16:13 Dose: 50 mg Vitamin B Complex/Vit C/Folic Acid (Nephro-Ajay) 1 tab PO DAILY [facility] Last Admin: 12/13/16 08:15 Dose: 1 tab - Labs Labs: 12/10/16 14:00 12/06/16 11:30 PT 15.3 Seconds (9.8-13.1) H 12/02/16 13:05 INR 1.4 (0.9-1.2) H 12/02/16 13:05 APTT 37.0 Seconds (25.6-37.1) 12/02/16 13:05 Assessment and Plan (1) Diabetes Status: Chronic (2) ESRD (end stage renal disease) Status: Chronic (3) Cellulitis of leg Status: Chronic (4) Hyperlipidemia Status: Chronic (5) Back pain Status: Acute (6) Bacteremia due to Gram-negative bacteria Status: Acute (7) Diabetes mellitus type 2 with peripheral artery disease Status: Chronic (8) PVD (peripheral vascular disease) Status: Chronic (9) Osteomyelitis of right leg Status: Acute
[2016-12-14] MEDS: Meropenem 500 MG in Sodium Chloride 0.9% 100 ML IVPB SCH (01:08)
[2016-12-14] MEDS: HYDROmorphone 0.5 mg/0.5 ml ISec IVP PRN ×3 (03:43→10:23)
[2016-12-14] MEDS: Multivitamin Vitamin B Complex (Nephro-Vite) Tab PO SCH (09:07)
[2016-12-14] MEDS: Pantoprazole 40 mg EC Tab PO SCH (09:08)
[2016-12-14] MEDS: SODIUM CHLORIDE 0.9% IVPB SCH ×2 (09:14→21:43)
[2016-12-14] MEDS: TIGECYCLINE IVPB SCH ×2 (09:14→21:43)
--- NOTE | 2016-12-14 12:50 | PN ---
DATE: This is a 46-year-old female with recent uncontrolled type 2 insulin requiring diabetes, currently off insulin therapy at this time and doing very well on low dose oral hypoglycemic drug therapy as given. Her glycemic levels have ranged from 113 to 142 mg/dL. Her latest chemistries showed a BUN of 59, sodium 140, potassium 5.2, chloride 102, CO2 is 23, glucose 60, and creatinine 6.0. So at this time, we will continue the low-dose oral hypoglycemic drug therapy given as Prandin at 0.5 mg p.o. t.i.d. before meals as given. We will obtain serum chemistry and supplement accordingly as needed. 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 We will obtain serum chemistry and supplement accordingly as needed. Irene Ambrose MD
[2016-12-14] MEDS: oxyCODONE 10 mg Immediate Release Tab PO PRN ×2 (14:59→16:02)
--- NOTE | 2016-12-14 18:14 | CP.PCM.PN ---
Subjective - Date & Time of Evaluation Date of Evaluation: 12/14/16 Time of Evaluation: 18:07 - Subjective Subjective: Patient has been exercising her arms and propelling herself in wheelchair. Yesterday with the help of 3 physical therapists she stood up for 5 seconds and then plopped down into the wheelchair. She repeated this 3 times, but was exhausted afterward. She is making progress. The right BK wound vac is to be changed on Saturday 12/[address] Mccormack. Dilaudid is in short supply so we switched to oxycodone 20mg po q4h prn moderate pain. I have ordered Dilaudid 1mg iv to be given just before wound vac change on 12/16. Patient needs to continue her current 4 iv antibiotics (meropenem, tigacycline, daptomycin, and gentamicin) for osteomyelitis involving the R BK site and patella. If patient were to lose the right patella due to osteomyelitis, it is doubtful she would be ever be able to walk. I have ordered CBC and CMP and gentamicin levels for 12/16 to be drawn by dialysis nurse. Also HgbA1C, Fe/TIBC. DM controlled on Prandin with glucoses around 118-119 (max 146 on 12/13). Coaglulopathy managed with Eliquis and ASA. Neurology note by Dr. Maguire appreciated. Pt continues on Topamax. Objective - Vital Signs/Intake and Output Vital Signs (last 24 hours): Temp Pulse Resp BP Pulse Ox 97.9 F 109 H 18 121/49 L 98 12/14/16 07:34 12/14/16 07:34 12/14/16 07:34 12/14/16 07:34 12/14/16 07:34 Intake and Output: 12/14/16 12/14/16 06:59 18:59 Intake Total 435 850 Output Total 130 Balance 305 850 - Medications Medications: Current Medications Acetaminophen (Tylenol 325mg Tab) 650 mg PO Q4 PRN PRN Reason: Fever >100.4 F Last Admin: 11/21/16 00:44 Dose: 650 mg Acetaminophen (Tylenol 325mg Tab) 650 mg PO Q4 PRN PRN Reason: Pain, moderate (4-7) Last Admin: 09/16/16 22:34 Dose: 650 mg Albuterol Sulfate (Albuterol 0.083% Inhal Barbie (2.5 Mg/3 Ml) Ud) 2.5 mg INH RQ4 PRN PRN Reason: Shortness of Breath Albuterol/Ipratropium (Duoneb 3 Mg/0.5 Mg (3 Ml) Ud) 3 ml INH RQ4 PRN PRN Reason: Shortness of Breath Last Admin: 11/11/16 07:39 Dose: 3 ml Apixaban (Eliquis) 5 mg PO BID [facility] PRN Reason: Protocol Last Admin: 12/14/16 09:07 Dose: 5 mg Aspirin (Ecotrin) 81 mg PO DAILY [facility] Last Admin: 12/14/16 09:06 Dose: 81 mg Atorvastatin Calcium (Lipitor) 40 mg PO DAILY [facility] Last Admin: 12/14/16 09:07 Dose: 40 mg Benzonatate (Tessalon Perles) 200 mg PO TID PRN PRN Reason: Cough Last Admin: 11/21/16 09:06 Dose: 200 mg Calcium Carbonate (Oscal) 500 mg PO BIDWM [facility] Last Admin: 12/14/16 09:08 Dose: 500 mg Cinacalcet (Sensipar) 30 mg PO DAILY [facility] Last Admin: 12/14/16 09:10 Dose: 30 mg Collagenase (Santyl) 1 applic TOP DAILY [facility] Last Admin: 12/13/16 16:11 Dose: 1 applic Diphenhydramine HCl (Benadryl) 25 mg PO Q6 PRN PRN Reason: Itching / Pruritus Last Admin: 11/12/16 08:34 Dose: 25 mg Docusate Sodium (Colace) 100 mg PO BID [facility] Last Admin: 12/14/16 09:05 Dose: 100 mg Epoetin Tha (Procrit) 20,000 unit IV MWF [facility] Last Admin: 12/13/16 08:13 Dose: 20,000 unit Ergocalciferol (Drisdol 50,000 Intl Units Cap) 1 cap PO WED [facility] Last Admin: 12/11/16 09:33 Dose: 1 cap Fluconazole (Diflucan) 100 mg PO DAILY [facility] Last Admin: 12/14/16 09:06 Dose: 100 mg Gabapentin (Neurontin) 300 mg PO TID [facility] Last Admin: 12/14/16 13:31 Dose: 300 mg Hydrocortisone (Anusol-Hc) 1 applic [place] BID PRN PRN Reason: Inflammation Hydromorphone HCl (Dilaudid) 1 mg IVP Q4H PRN PRN Reason: Pain, severe (8-10) Meropenem 500 mg/ Sodium (Chloride) 100 mls @ 100 mls/hr IVPB DAILY@0100 [facility] Last Admin: 12/14/16 01:08 Dose: 100 mls/hr Gentamicin Sulfate/Sodium Chloride (Gentamicin 100mg/100ml Ns) 100 mg in 100 mls @ 100 mls/hr IVPB MWF [facility] Last Admin: 12/13/16 09:53 Dose: 100 mls/hr Tigecycline 25 mg/ Sodium (Chloride) 100 mls @ 100 mls/hr IVPB Q12 [facility] Last Admin: 12/14/16 09:14 Dose: 100 mls/hr Sodium Chloride (Sodium Chloride 0.45%) 500 mls @ 10 mls/hr IV .Q24H [facility] Last Admin: 12/13/16 16:13 Dose: 10 mls/hr Daptomycin 650 mg/ Sodium (Chloride) 100 mls @ 100 mls/hr IVPB MWF@1800 [facility] Stop: 12/16/16 18:59 Last Admin: 12/13/16 18:09 Dose: 100 mls/hr Nystatin (Nystop Topical Powder) 1 applic TOP BID [facility] Last Admin: 12/14/16 09:08 Dose: 1 applic Ondansetron HCl (Zofran Inj) 4 mg IVP Q6 PRN PRN Reason: Nausea/Vomiting Last Admin: 09/19/16 10:26 Dose: 4 mg Oxycodone HCl (Oxycodone Immediate Release Tab) 20 mg PO Q4H PRN PRN Reason: Pain, moderate (4-7) Pantoprazole Sodium (Protonix Ec Tab) 40 mg PO DAILY [facility] Last Admin: 12/14/16 09:08 Dose: 40 mg Repaglinide (Prandin) 0.5 mg PO TIDAC [facility] Last Admin: 12/14/16 13:31 Dose: 0.5 mg Sennosides (Senokot Tab) 25.8 mg PO HS [facility] Last Admin: 12/13/16 21:36 Dose: 25.8 mg Sevelamer HCl (Renagel) 1,600 mg PO TID [facility] Last Admin: 12/14/16 13:31 Dose: 1,600 mg Topiramate (Topamax) 50 mg PO BID [facility] Last Admin: 12/14/16 09:10 Dose: 50 mg Vitamin B Complex/Vit C/Folic Acid (Nephro-Ajay) 1 tab PO DAILY [facility] Last Admin: 12/14/16 09:07 Dose: 1 tab - Labs Labs: 12/10/16 14:00 12/06/16 11:30 PT 15.3 Seconds (9.8-13.1) H 12/02/16 13:05 INR 1.4 (0.9-1.2) H 12/02/16 13:05 APTT 37.0 Seconds (25.6-37.1) 12/02/16 13:05 - Constitutional Appears: No Acute Distress - Head Exam Head Exam: NORMAL INSPECTION - Eye Exam Eye Exam: Normal appearance - ENT Exam ENT Exam: Mucous Membranes Moist - Neck Exam Neck Exam: Normal Inspection Additional comments: R subclavian catheter intact. - Respiratory Exam Respiratory Exam: Clear to Ausculation Bilateral, NORMAL BREATHING PATTERN - Cardiovascular Exam Cardiovascular Exam: REGULAR RHYTHM, +S1, +S2 - GI/Abdominal Exam GI & Abdominal Exam: Soft, Normal Bowel Sounds - Extremities Exam Additional comments: Right BK wound vac intact without leak and win minimal drainage. R patella wound dressing intact. - Back Exam Back Exam: NORMAL INSPECTION - Neurological Exam Neurological Exam: Alert, CN II-XII Intact, Oriented x3 - Psychiatric Exam Psychiatric exam: Normal Affect, Normal Mood - Skin Skin Exam: Dry, Normal Color, Warm Assessment and Plan (1) Status post below knee amputation of right lower extremity Assessment & Plan: SEE SUBJECTIVE. Status: Acute (2) ESRD (end stage renal disease) on dialysis Status: Chronic (3) DM type 2 (diabetes mellitus, type 2) Assessment & Plan: SEE SUBJECTIVE. Status: Chronic (4) Coagulopathy Assessment & Plan: SEE SUBJECTIVE. Status: Chronic (5) Peripheral arterial occlusive disease Status: Chronic
--- NOTE | 2016-12-14 18:35 | CP.PCM.PN ---
Subjective - Date & Time of Evaluation Date of Evaluation: 12/14/16 Time of Evaluation: 18:30 - Subjective Subjective: I D NOTE CASE REVIEWED DISCUSSED C PATIENT NEEDS TO CONTINUE ON PRESENT ANTIBIOTIC MANAGEMENT,HOPEFULLY WILL AVOID THE DEVELOPMENT OF OSTEOMYELITIS. STILL NEEDING DAILY LOCAL MANAGEMENT AND ANTIBIOTIC MANAGEMENT Objective - Vital Signs/Intake and Output Vital Signs (last 24 hours): Temp Pulse Resp BP Pulse Ox 97.9 F 109 H 18 121/49 L 98 12/14/16 07:34 12/14/16 07:34 12/14/16 07:34 12/14/16 07:34 12/14/16 07:34 Intake and Output: 12/14/16 12/14/16 06:59 18:59 Intake Total 435 850 Output Total 130 Balance 305 850 - Medications Medications: Current Medications Acetaminophen (Tylenol 325mg Tab) 650 mg PO Q4 PRN PRN Reason: Fever >100.4 F Last Admin: 11/21/16 00:44 Dose: 650 mg Acetaminophen (Tylenol 325mg Tab) 650 mg PO Q4 PRN PRN Reason: Pain, moderate (4-7) Last Admin: 09/16/16 22:34 Dose: 650 mg Albuterol Sulfate (Albuterol 0.083% Inhal Barbie (2.5 Mg/3 Ml) Ud) 2.5 mg INH RQ4 PRN PRN Reason: Shortness of Breath Albuterol/Ipratropium (Duoneb 3 Mg/0.5 Mg (3 Ml) Ud) 3 ml INH RQ4 PRN PRN Reason: Shortness of Breath Last Admin: 11/11/16 07:39 Dose: 3 ml Apixaban (Eliquis) 5 mg PO BID JASPER PRN Reason: Protocol Last Admin: 12/14/16 09:07 Dose: 5 mg Aspirin (Ecotrin) 81 mg PO DAILY [facility] Last Admin: 12/14/16 09:06 Dose: 81 mg Atorvastatin Calcium (Lipitor) 40 mg PO DAILY [facility] Last Admin: 12/14/16 09:07 Dose: 40 mg Benzonatate (Tessalon Perles) 200 mg PO TID PRN PRN Reason: Cough Last Admin: 11/21/16 09:06 Dose: 200 mg [facility]scal[facility] Last Admin: 12/14/16 09:08 Dose: 500 mg Cinacalcet (Sensipar) 30 mg PO DAILY [facility] Last Admin: 12/14/16 09:10 Dose: 30 mg Collagenase (Santyl) 1 applic TOP DAILY [facility] Last Admin: 12/13/16 16:11 Dose: 1 applic Diphenhydramine HCl (Benadryl) 25 mg PO Q6 PRN PRN Reason: Itching / Pruritus Last Admin: 11/12/16 08:34 Dose: 25 mg Docusate Sodium (Colace) 100 mg PO BID [facility] Last Admin: 12/14/16 09:05 Dose: 100 mg Epoetin Tha (Procrit) 20,000 unit IV MWF [facility] Last Admin: 12/13/16 08:13 Dose: 20,000 unit Ergocalciferol (Drisdol 50,000 Intl Units Cap) 1 cap PO WED [facility] Last Admin: 12/11/16 09:33 Dose: 1 cap Fluconazole (Diflucan) 100 mg PO DAILY [facility] Last Admin: 12/14/16 09:06 Dose: 100 mg Gabapentin (Neurontin) 300 mg PO TID [facility] Last Admin: 12/14/16 13:31 Dose: 300 mg Hydrocortisone (Anusol-Hc) 1 applic [place] BID PRN PRN Reason: Inflammation Hydromorphone HCl (Dilaudid) 1 mg IVP Q4H PRN PRN Reason: Pain, severe (8-10) Meropenem 500 mg/ Sodium (Chloride) 100 mls @ 100 mls/hr IVPB DAILY@0100 [facility] Last Admin: 12/14/16 01:08 Dose: 100 mls/hr Gentamicin Sulfate/Sodium Chloride (Gentamicin 100mg/100ml Ns) 100 mg in 100 mls @ 100 mls/hr IVPB MWF [facility] Last Admin: 12/13/16 09:53 Dose: 100 mls/hr Tigecycline 25 mg/ Sodium (Chloride) 100 mls @ 100 mls/hr IVPB Q12 [facility] Last Admin: 12/14/16 09:14 Dose: 100 mls/hr Sodium Chloride (Sodium Chloride 0.45%) 500 mls @ 10 mls/hr IV .Q24H [facility] Last Admin: 12/13/16 16:13 Dose: 10 mls/hr Daptomycin 650 mg/ Sodium (Chloride) 100 mls @ 100 mls/hr IVPB MWF@1800 [facility] Stop: 12/16/16 18:59 Last Admin: 12/13/16 18:09 Dose: 100 mls/hr Nystatin (Nystop Topical Powder) 1 applic TOP BID [facility] Last Admin: 12/14/16 09:08 Dose: 1 applic Ondansetron HCl (Zofran Inj) 4 mg IVP Q6 PRN PRN Reason: Nausea/Vomiting Last Admin: 09/19/16 10:26 Dose: 4 mg Oxycodone HCl (Oxycodone Immediate Release Tab) 20 mg PO Q4H PRN PRN Reason: Pain, moderate (4-7) Pantoprazole Sodium (Protonix Ec Tab) 40 mg PO DAILY [facility] Last Admin: 12/14/16 09:08 Dose: 40 mg Repaglinide (Prandin) 0.5 mg PO TIDAC [facility] Last Admin: 12/14/16 13:31 Dose: 0.5 mg Sennosides (Senokot Tab) 25.8 mg PO HS [facility] Last Admin: 12/13/16 21:36 Dose: 25.8 mg Sevelamer HCl (Renagel) 1,600 mg PO TID [facility] Last Admin: 12/14/16 13:31 Dose: 1,600 mg Topiramate (Topamax) 50 mg PO BID [facility] Last Admin: 12/14/16 09:10 Dose: 50 mg Vitamin B Complex/Vit C/Folic Acid (Nephro-Ajay) 1 tab PO DAILY [facility] Last Admin: 12/14/16 09:07 Dose: 1 tab - Labs Labs: 12/10/16 14:00 12/06/16 11:30 PT 15.3 Seconds (9.8-13.1) H 12/02/16 13:05 INR 1.4 (0.9-1.2) H 12/02/16 13:05 APTT 37.0 Seconds (25.6-37.1) 12/02/16 13:05
[2016-12-14] MEDS: Santyl Collagenase OINTMENT TOP SCH (18:49)
--- NOTE | 2016-12-14 20:44 | CP.PCM.PN ---
Subjective - Date & Time of Evaluation Date of Evaluation: 12/14/16 Time of Evaluation: 19:00 - Subjective Subjective: No seizures, she is on Topamax 50 mg BID. doing better, trying to stand using the BKA Stumps. Patient is doing better. She is still on Antibiotics for her cellulitis. Yesterday, she had her Hemodialysis. Objective - Vital Signs/Intake and Output Vital Signs (last 24 hours): Temp Pulse Resp BP Pulse Ox 97.9 F 109 H 18 121/49 L 98 12/14/16 07:34 12/14/16 07:34 12/14/16 07:34 12/14/16 07:34 12/14/16 07:34 Intake and Output: 12/14/16 12/15/16 18:59 06:59 Intake Total 850 Balance 850 - Medications Medications: Current Medications Acetaminophen (Tylenol 325mg Tab) 650 mg PO Q4 PRN PRN Reason: Fever >100.4 F Last Admin: 11/21/16 00:44 Dose: 650 mg Acetaminophen (Tylenol 325mg Tab) 650 mg PO Q4 PRN PRN Reason: Pain, moderate (4-7) Last Admin: 09/16/16 22:34 Dose: 650 mg Albuterol Sulfate (Albuterol 0.083% Inhal Barbie (2.5 Mg/3 Ml) Ud) 2.5 mg INH RQ4 PRN PRN Reason: Shortness of Breath Albuterol/Ipratropium (Duoneb 3 Mg/0.5 Mg (3 Ml) Ud) 3 ml INH RQ4 PRN PRN Reason: Shortness of Breath Last Admin: 11/11/16 07:39 Dose: 3 ml Apixaban (Eliquis) 5 mg PO BID [facility] BEDS [facility] PRN Reason: Protocol Last Admin: 12/14/16 18:46 Dose: 5 mg Aspirin (Ecotrin) 81 mg PO DAILY [facility] 234 [facility]S [facility] Last Admin: 12/14/16 09:06 Dose: 81 mg Atorvastatin Calcium (Lipitor) 40 mg PO DAILY [facility] 234 [facility]EDS [facility] Last Admin: 12/14/16 09:07 Dose: 40 mg Benzonatate (Tessalon Perles) 200 mg PO TID PRN PRN Reason: Cough Last Admin: 11/21/16 09:06 Dose: 200 mg Calcium Carbonate (Oscal) [facility] Last Admin: 12/14/16 18:48 Dose: 500 mg Cinacalcet (Sensipar) 30 mg PO DAILY [facility] 234 BEDS [facility] Last Admin: 12/14/16 09:10 Dose: 30 mg Collagenase (Santyl) 1 applic TOP DAILY [facility] 234 BEDS [facility] Last Admin: 12/14/16 18:49 Dose: 1 applic Diphenhydramine HCl (Benadryl) 25 mg PO Q6 PRN PRN Reason: Itching / Pruritus Last Admin: 11/12/16 08:34 Dose: 25 mg Docusate Sodium (Colace) 100 mg PO BID [facility] 234 BEDS [facility] Last Admin: 12/14/16 18:45 Dose: 100 mg Epoetin Tha (Procrit) [facility] Last Admin: 12/13/16 08:13 Dose: 20,000 unit Ergocalciferol (Drisdol 50,000 Intl Units Cap) 1 cap PO WED [facility] 234 BEDS [facility] Last Admin: 12/11/16 09:33 Dose: 1 cap Fluconazole (Diflucan) 100 mg PO DAILY [facility] 234 BEDS [facility] Last Admin: 12/14/16 09:06 Dose: 100 mg Gabapentin (Neurontin) 300 mg PO TID [facility] 234 BEDS [facility] Last Admin: 12/14/16 18:51 Dose: 300 mg Hydrocortisone (Anusol-Hc) 1 applic [place] BID PRN PRN Reason: Inflammation Hydromorphone HCl (Dilaudid) 1 mg IVP Q4H PRN PRN Reason: Pain, severe (8-10) Meropenem 500 mg/ Sodium (Chloride) 100 mls @ 100 mls/hr IVPB DAILY@0100 [facility] 234 [facility]EDS [facility] Last Admin: 12/14/16 01:08 Dose: 100 mls/hr Gentamicin Sulfate/Sodium Chloride (Gentamicin 100mg/100ml Ns) 100 mg in 100 mls @ 100 mls[facility] Last Admin: 12/13/16 09:53 Dose: 100 mls/hr Tigecycline 25 mg/ Sodium (Chloride) 100 mls @ 100 mls/hr IVPB Q12 [facility] 234 BEDS [facility] Last Admin: 12/14/16 09:14 Dose: 100 mls/hr Sodium Chloride (Sodium Chloride 0.45%) 500 mls @ 10 mls/hr IV .Q24H [facility]CLUDE 234 BEDS AT [facility] Last Admin: 12/14/16 18:50 Dose: 10 mls/hr Daptomycin 650 mg/ Sodium (Chloride) 100 mls @ 100 mls/hr IVPB MWF@1800 [facility] 234 BEDS [facility] Stop: 12/21/16 18:01 Nystatin (Nystop Topical Powder) 1 applic TOP BID [facility] 234 BEDS AT [facility] Last Admin: 12/14/16 18:47 Dose: Not Given Ondansetron HCl (Zofran Inj) 4 mg IVP Q6 PRN PRN Reason: Nausea/Vomiting Last Admin: 09/19/16 10:26 Dose: 4 mg Oxycodone HCl (Oxycodone Immediate Release Tab) 20 mg PO Q4H PRN PRN Reason: Pain, moderate (4-7) Pantoprazole Sodium (Protonix Ec Tab) 40 mg PO DAILY [facility] 234 [facility]S [facility] Last Admin: 12/14/16 09:08 Dose: 40 mg Repaglinide (Prandin) 0.5 mg PO TIDAC [facility] 234 BEDS [facility] Last Admin: 12/14/16 18:49 Dose: 0.5 mg Sennosides (Senokot Tab) 25.8 mg PO HS [facility] 234 BEDS AT [facility] Last Admin: 12/13/16 21:36 Dose: 25.8 mg Sevelamer HCl (Renagel) 1,600 mg PO TID [facility] 234 BEDS AT [facility] Last Admin: 12/14/16 18:49 Dose: 1,600 mg Topiramate (Topamax) 50 mg PO BID [facility] 234 BEDS [facility] Last Admin: 12/14/16 18:50 Dose: 50 mg Vitamin B Complex/Vit C/Folic Acid (Nephro-Ajay) 1 tab PO DAILY [facility] 234 BEDS [facility] Last Admin: 12/14/16 09:07 Dose: 1 tab - Labs Labs: 12/10/16 14:00 12/06/16 11:30 PT 15.3 Seconds (9.8-13.1) H 12/02/16 13:05 INR 1.4 (0.9-1.2) H 12/02/16 13:05 APTT 37.0 Seconds (25.6-37.1) 12/02/16 13:05 Assessment and Plan (1) Diabetes Status: Chronic (2) ESRD (end stage renal disease) Status: Chronic (3) Cellulitis of leg Status: Chronic (4) Hyperlipidemia Status: Chronic (5) Back pain Status: Acute (6) Bacteremia due to Gram-negative bacteria Status: Acute (7) Diabetes mellitus type 2 with peripheral artery disease Status: Chronic (8) PVD (peripheral vascular disease) Status: Chronic (9) Osteomyelitis of right leg Status: Acute
[2016-12-14] MEDS ORDERED: oxyCODONE 10 mg ER Tab (oxyCONTIN) PO SCH (21:00)
[2016-12-15] MEDS: oxyCODONE 10 mg Immediate Release Tab PO PRN ×4 (00:39→18:44)
[2016-12-15] MEDS: Meropenem 500 MG in Sodium Chloride 0.9% 100 ML IVPB SCH (01:00)
[2016-12-15] MEDS: TIGECYCLINE IVPB SCH ×2 (09:07→20:25)
[2016-12-15] MEDS: SODIUM CHLORIDE 0.9% IVPB SCH ×2 (09:07→20:25)
[2016-12-15] MEDS: Pantoprazole 40 mg EC Tab PO SCH (09:10)
[2016-12-15] MEDS: Santyl Collagenase OINTMENT TOP SCH (09:11)
[2016-12-15] MEDS: Multivitamin Vitamin B Complex (Nephro-Vite) Tab PO SCH (09:13)
--- NOTE | 2016-12-15 19:28 | CP.PCM.PN ---
Subjective - Date & Time of Evaluation Date of Evaluation: 12/15/16 Time of Evaluation: 19:23 - Subjective Subjective: She is stable, no significant pain. She is receiving PT exercises to prepare her walking after having prothesis using her BKA stump that are preserved bilaterally. No seizures are reported. She is on Topamax, Vitamin D and Calcium. She will be getting her hemodialysis in AM as a routine, M,W,F. Objective - Vital Signs/Intake and Output Vital Signs (last 24 hours): Temp Pulse Resp BP Pulse Ox 97.9 F 104 H 20 119/95 H 98 12/15/16 16:11 12/15/16 16:11 12/15/16 16:11 12/15/16 16:11 12/15/16 16:11 - Medications Medications: Current Medications Acetaminophen (Tylenol 325mg Tab) 650 mg PO Q4 PRN PRN Reason: Fever >100.4 F Last Admin: 11/21/16 00:44 Dose: 650 mg Acetaminophen (Tylenol 325mg Tab) 650 mg PO Q4 PRN PRN Reason: Pain, moderate (4-7) Last Admin: 09/16/16 22:34 Dose: 650 mg Albuterol Sulfate (Albuterol 0.083% Inhal Barbie (2.5 Mg/3 Ml) Ud) 2.5 mg INH RQ4 PRN PRN Reason: Shortness of Breath Albuterol/Ipratropium (Duoneb 3 Mg/0.5 Mg (3 Ml) Ud) 3 ml INH RQ4 PRN PRN Reason: Shortness of Breath Last Admin: 11/11/16 07:39 Dose: 3 ml Apixaban (Eliquis) 5 mg PO BID JASPER PRN Reason: Protocol Last Admin: 12/15/16 16:59 Dose: 5 mg Aspirin (Ecotrin) 81 mg PO DAILY [facility] Last Admin: 12/15/16 09:10 Dose: 81 mg Atorvastatin Calcium (Lipitor) 40 mg PO DAILY [facility] Last Admin: 12/15/16 09:14 Dose: 40 mg Benzonatate (Tessalon Perles) 200 mg PO TID PRN PRN Reason: Cough Last Admin: 11/21/16 09:06 Dose: 200 mg Calcium Carbonate (Oscal) [facility] [place] Last Admin: 12/15/16 17:00 Dose: 500 mg Cinacalcet (Sensipar) 30 mg PO DAILY [facility] Last Admin: 12/15/16 09:10 Dose: 30 mg Collagenase (Santyl) 1 applic TOP DAILY [facility] Last Admin: 12/15/16 09:11 Dose: 1 applic Diphenhydramine HCl (Benadryl) 25 mg PO Q6 PRN PRN Reason: Itching / Pruritus Last Admin: 11/12/16 08:34 Dose: 25 mg Docusate Sodium (Colace) 100 mg PO BID [facility] Last Admin: 12/15/16 17:00 Dose: 100 mg Epoetin Tha (Procrit) 20,000 unit IV MWF [facility] Last Admin: 12/13/16 08:13 Dose: 20,000 unit Ergocalciferol (Drisdol 50,000 Intl Units Cap) 1 cap PO WED [facility] Last Admin: 12/11/16 09:33 Dose: 1 cap Fluconazole (Diflucan) 100 mg PO DAILY [facility] Last Admin: 12/15/16 09:12 Dose: 100 mg Gabapentin (Neurontin) 300 mg PO TID [facility] Last Admin: 12/15/16 16:59 Dose: 300 mg Hydrocortisone (Anusol-Hc) 1 applic [place] BID PRN PRN Reason: Inflammation Hydromorphone HCl (Dilaudid) 1 mg IVP Q4H PRN PRN Reason: Pain, severe (8-10) Meropenem 500 mg/ Sodium (Chloride) 100 mls @ 100 mls/hr IVPB DAILY@0100 [facility] Last Admin: 12/15/16 01:00 Dose: 100 mls/hr Gentamicin Sulfate/Sodium Chloride (Gentamicin 100mg/100ml Ns) 100 mg in 100 mls @ 100 mls/hr IVPB MWF [facility] Last Admin: 12/13/16 09:53 Dose: 100 mls/hr Tigecycline 25 mg/ Sodium (Chloride) 100 mls @ 100 mls/hr IVPB Q12 [facility] Last Admin: 12/15/16 09:07 Dose: 100 mls/hr Sodium Chloride (Sodium Chloride 0.45%) 500 mls @ 10 mls/hr IV .Q24H [facility] Last Admin: 12/14/16 18:50 Dose: 10 mls/hr Daptomycin 650 mg/ Sodium (Chloride) 100 mls @ 100 mls/hr IVPB MWF@1800 [facility] Stop: 12/21/16 18:01 Nystatin (Nystop Topical Powder) 1 applic TOP BID [facility] Last Admin: 12/15/16 17:00 Dose: Not Given Ondansetron HCl (Zofran Inj) 4 mg IVP Q6 PRN PRN Reason: Nausea/Vomiting Last Admin: 09/19/16 10:26 Dose: 4 mg Oxycodone HCl (Oxycodone Immediate Release Tab) 20 mg PO Q4H PRN PRN Reason: Pain, moderate (4-7) Last Admin: 12/15/16 18:44 Dose: 20 mg Pantoprazole Sodium (Protonix Ec Tab) 40 mg PO DAILY [facility] Last Admin: 12/15/16 09:10 Dose: 40 mg Repaglinide (Prandin) 0.5 mg PO TIDAC [facility] Last Admin: 12/15/16 16:59 Dose: 0.5 mg Sennosides (Senokot Tab) 25.8 mg PO HS [facility] Last Admin: 12/14/16 21:43 Dose: 25.8 mg Sevelamer HCl (Renagel) 1,600 mg PO TID [facility] Last Admin: 12/15/16 16:59 Dose: 1,600 mg Topiramate (Topamax) 50 mg PO BID [facility] Last Admin: 12/15/16 09:11 Dose: 50 mg Vitamin B Complex/Vit C/Folic Acid (Nephro-Ajay) 1 tab PO DAILY [facility] Last Admin: 12/15/16 09:13 Dose: 1 tab - Labs Labs: 12/10/16 14:00 12/06/16 11:30 PT 15.3 Seconds (9.8-13.1) H 12/02/16 13:05 INR 1.4 (0.9-1.2) H 12/02/16 13:05 APTT 37.0 Seconds (25.6-37.1) 12/02/16 13:05 Assessment and Plan (1) Diabetes Status: Chronic (2) ESRD (end stage renal disease) Status: Chronic (3) Cellulitis of leg Status: Chronic (4) Hyperlipidemia Status: Chronic (5) Back pain Status: Acute (6) Bacteremia due to Gram-negative bacteria Status: Acute (7) Diabetes mellitus type 2 with peripheral artery disease Status: Chronic (8) PVD (peripheral vascular disease) Status: Chronic (9) Osteomyelitis of right leg Status: Acute
--- NOTE | 2016-12-15 20:30 | CP.PCM.PN ---
Subjective - Date & Time of Evaluation Date of Evaluation: 12/15/16 Time of Evaluation: 20:48 - Subjective Subjective: Labs reviewed - glucoses ranging from 92 to 124 on Prandin. No new problems - Got out of bed via Maurice lift into wheelchair. Also did arm exercises today. For change of R BK wound vac by Dr. johnson tomorrow. We must locate some Dilaudid (currently on back order but can be found on various floors) prior to this dressing change because it is painful. Santyl dressings to right patella continue. Continues on 4 iv and 1 po antibiotic. We must renew Daptomycin tomorrow. All others renewed today. No fevers, cough or dyspnea. Appetite and elimination OK. For hemodialysis tomorrow. Orders already placed for CBC, CMP, gentamicin leve , Hgb A1C and Fe.TIBC. Objective - Vital Signs/Intake and Output Vital Signs (last 24 hours): Temp Pulse Resp BP Pulse Ox 97.9 F 104 H 20 119/95 H 98 12/15/16 16:11 12/15/16 16:11 12/15/16 16:11 12/15/16 16:11 12/15/16 16:11 - Medications Medications: Current Medications Acetaminophen (Tylenol 325mg Tab) 650 mg PO Q4 PRN PRN Reason: Fever >100.4 F Last Admin: 11/21/16 00:44 Dose: 650 mg Acetaminophen (Tylenol 325mg Tab) 650 mg PO Q4 PRN PRN Reason: Pain, moderate (4-7) Last Admin: 09/16/16 22:34 Dose: 650 mg Albuterol Sulfate (Albuterol 0.083% Inhal Barbie (2.5 Mg/3 Ml) Ud) 2.5 mg INH RQ4 PRN PRN Reason: Shortness of Breath Albuterol/Ipratropium (Duoneb 3 Mg/0.5 Mg (3 Ml) Ud) 3 ml INH RQ4 PRN PRN Reason: Shortness of Breath Last Admin: 11/11/16 07:39 Dose: 3 ml Apixaban (Eliquis) 5 mg PO BID [facility] PRN Reason: Protocol Last Admin: 12/15/16 16:59 Dose: 5 mg Aspirin (Ecotrin) 81 mg PO DAILY [facility] Last Admin: 12/15/16 09:10 Dose: 81 mg Atorvastatin Calcium (Lipitor) 40 mg PO DAILY [facility] Last Admin: 12/15/16 09:14 Dose: 40 mg Benzonatate (Tessalon Perles) 200 mg PO TID PRN PRN Reason: Cough Last Admin: 11/21/16 09:06 Dose: 200 mg Calcium Carbonate (Oscal) 500 mg PO BIDWM [facility] Last Admin: 12/15/16 17:00 Dose: 500 mg Cinacalcet (Sensipar) 30 mg PO DAILY [facility] Last Admin: 12/15/16 09:10 Dose: 30 mg Collagenase (Santyl) 1 applic TOP DAILY [facility] Last Admin: 12/15/16 09:11 Dose: 1 applic Diphenhydramine HCl (Benadryl) 25 mg PO Q6 PRN PRN Reason: Itching / Pruritus Last Admin: 11/12/16 08:34 Dose: 25 mg Docusate Sodium (Colace) 100 mg PO BID [facility] Last Admin: 12/15/16 17:00 Dose: 100 mg Epoetin Tha (Procrit) 20,000 unit IV [facility] Last Admin: 12/13/16 08:13 Dose: 20,000 unit Ergocalciferol (Drisdol 50,000 Intl Units Cap) 1 cap PO WED [facility] Last Admin: 12/11/16 09:33 Dose: 1 cap Fluconazole (Diflucan) 100 mg PO DAILY [facility] Last Admin: 12/15/16 09:12 Dose: 100 mg Gabapentin (Neurontin) 300 mg PO TID [facility] Last Admin: 12/15/16 16:59 Dose: 300 mg Hydrocortisone (Anusol-Hc) 1 applic [place] BID PRN PRN Reason: Inflammation Hydromorphone HCl (Dilaudid) 1 mg IVP Q4H PRN PRN Reason: Pain, severe (8-10) Meropenem 500 mg/ Sodium (Chloride) 100 mls @ 100 mls/hr IVPB DAILY@0100 [facility] Last Admin: 12/15/16 01:00 Dose: 100 mls/hr Gentamicin Sulfate/Sodium Chloride (Gentamicin 100mg/100ml Ns) 100 mg in 100 mls @ 100 mls/hr IVPB MWF [facility] Last Admin: 12/13/16 09:53 Dose: 100 mls/hr Tigecycline 25 mg/ Sodium (Chloride) 100 mls @ 100 mls/hr IVPB Q12 [facility] Last Admin: 12/15/16 20:25 Dose: 100 mls/hr Sodium Chloride (Sodium Chloride 0.45%) 500 mls @ 10 mls/hr IV .Q24H [facility] Last Admin: 12/14/16 18:50 Dose: 10 mls/hr Daptomycin 650 mg/ Sodium (Chloride) 100 mls @ 100 mls/hr IVPB MWF@1800 [facility] Stop: 12/21/16 18:01 Nystatin (Nystop Topical Powder) 1 applic TOP BID [facility] Last Admin: 12/15/16 17:00 Dose: Not Given Ondansetron HCl (Zofran Inj) 4 mg IVP Q6 PRN PRN Reason: Nausea/Vomiting Last Admin: 09/19/16 10:26 Dose: 4 mg Oxycodone HCl (Oxycodone Immediate Release Tab) 20 mg PO Q4H PRN PRN Reason: Pain, moderate (4-7) Last Admin: 12/15/16 18:44 Dose: 20 mg Pantoprazole Sodium (Protonix Ec Tab) 40 mg PO DAILY [facility] Last Admin: 12/15/16 09:10 Dose: 40 mg Repaglinide (Prandin) 0.5 mg PO TIDAC [facility] Last Admin: 12/15/16 16:59 Dose: 0.5 mg Sennosides (Senokot Tab) 25.8 mg PO HS [facility] Last Admin: 12/14/16 21:43 Dose: 25.8 mg Sevelamer HCl (Renagel) 1,600 mg PO TID [facility] Last Admin: 12/15/16 16:59 Dose: 1,600 mg Topiramate (Topamax) 50 mg PO BID [facility] Last Admin: 12/15/16 09:11 Dose: 50 mg Vitamin B Complex/Vit C/Folic Acid (Nephro-Aajy) 1 tab PO DAILY [facility] Last Admin: 12/15/16 09:13 Dose: 1 tab - Labs Labs: 12/10/16 14:00 12/06/16 11:30 PT 15.3 Seconds (9.8-13.1) H 12/02/16 13:05 INR 1.4 (0.9-1.2) H 12/02/16 13:05 APTT 37.0 Seconds (25.6-37.1) 12/02/16 13:05 - Additional Findings Additional findings: No significant changes. Assessment and Plan (1) Status post below knee amputation of right lower extremity Status: Acute (2) ESRD (end stage renal disease) on dialysis Status: Chronic (3) DM type 2 (diabetes mellitus, type 2) Status: Chronic (4) Coagulopathy Status: Chronic (5) Peripheral arterial occlusive disease Status: Chronic
[2016-12-16] MEDS: Meropenem 500 MG in Sodium Chloride 0.9% 100 ML IVPB SCH (00:15)
[2016-12-16] MEDS: oxyCODONE 10 mg Immediate Release Tab PO PRN ×3 (02:01→17:29)
--- NOTE | 2016-12-16 07:22 | CP.PCM.PN ---
<Librado Grovessergio - Last Filed: 12/16/16 07:20> Subjective - Date & Time of Evaluation Date of Evaluation: 12/16/16 Time of Evaluation: 07:20 - Subjective Subjective: Surgery for Dr. Mccormack Pt s&yahir NOLAN. Pt resting comfortably. Objective - Vital Signs/Intake and Output Vital Signs (last 24 hours): Temp Pulse Resp BP Pulse Ox 98.2 F 105 H 20 143/88 98 12/16/16 01:06 12/16/16 01:06 12/16/16 01:06 12/16/16 01:06 12/16/16 01:06 - Medications Medications: Current Medications Acetaminophen (Tylenol 325mg Tab) 650 mg PO Q4 PRN PRN Reason: Fever >100.4 F Last Admin: 11/21/16 00:44 Dose: 650 mg Acetaminophen (Tylenol 325mg Tab) 650 mg PO Q4 PRN PRN Reason: Pain, moderate (4-7) Last Admin: 09/16/16 22:34 Dose: 650 mg Albuterol Sulfate (Albuterol 0.083% Inhal Barbie (2.5 Mg/3 Ml) Ud) 2.5 mg INH RQ4 PRN PRN Reason: Shortness of Breath Albuterol/Ipratropium (Duoneb 3 Mg/0.5 Mg (3 Ml) Ud) 3 ml INH RQ4 PRN PRN Reason: Shortness of Breath Last Admin: 11/11/16 07:39 Dose: 3 ml Apixaban (Eliquis) 5 mg PO BID [facility] PRN Reason: Protocol Last Admin: 12/15/16 16:59 Dose: 5 mg Aspirin (Ecotrin) 81 mg PO DAILY [facility] Last Admin: 12/15/16 09:10 Dose: 81 mg Atorvastatin Calcium (Lipitor) 40 mg PO DAILY [facility] Last Admin: 12/15/16 09:14 Dose: 40 mg Benzonatate (Tessalon Perles) 200 mg PO TID PRN PRN Reason: Cough Last Admin: 11/21/16 09:06 Dose: 200 mg Calcium Carbonate (Oscal) 500 mg PO BIDWM [facility] Last Admin: 12/15/16 17:00 Dose: 500 mg Cinacalcet (Sensipar) 30 mg PO DAILY [facility] Last Admin: 12/15/16 09:10 Dose: 30 mg Collagenase (Santyl) 1 applic TOP DAILY [facility] Last Admin: 12/15/16 09:11 Dose: 1 applic Diphenhydramine HCl (Benadryl) 25 mg PO Q6 PRN PRN Reason: Itching / Pruritus Last Admin: 11/12/16 08:34 Dose: 25 mg Docusate Sodium (Colace) 100 mg PO BID [facility] Last Admin: 12/15/16 17:00 Dose: 100 mg Epoetin Tha (Procrit) 20,000 unit IV MWF [facility] Last Admin: 12/13/16 08:13 Dose: 20,000 unit Ergocalciferol (Drisdol 50,000 Intl Units Cap) 1 cap PO WED [facility] Last Admin: 12/11/16 09:33 Dose: 1 cap Fluconazole (Diflucan) 100 mg PO DAILY [facility] Last Admin: 12/15/16 09:12 Dose: 100 mg Gabapentin (Neurontin) 300 mg PO TID [facility] Last Admin: 12/15/16 16:59 Dose: 300 mg Hydrocortisone (Anusol-Hc) 1 applic MA BID PRN PRN Reason: Inflammation Hydromorphone HCl (Dilaudid) 1 mg IVP Q4H PRN PRN Reason: Pain, severe (8-10) Meropenem 500 mg/ Sodium (Chloride) 100 mls @ 100 mls/hr IVPB DAILY@0100 [facility] Last Admin: 12/16/16 00:15 Dose: 100 mls/hr Gentamicin Sulfate/Sodium Chloride (Gentamicin 100mg/100ml Ns) 100 mg in 100 mls @ 100 mls/hr IVPB MWF [facility] Last Admin: 12/13/16 09:53 Dose: 100 mls/hr Tigecycline 25 mg/ Sodium (Chloride) 100 mls @ 100 mls/hr IVPB Q12 [facility] Last Admin: 12/15/16 20:25 Dose: 100 mls/hr Sodium Chloride (Sodium Chloride 0.45%) 500 mls @ 10 mls/hr IV .Q24H [facility] Last Admin: 12/14/16 18:50 Dose: 10 mls/hr Daptomycin 650 mg/ Sodium (Chloride) 100 mls @ 100 mls/hr IVPB MWF@1800 [facility] Stop: 12/21/16 18:01 Nystatin (Nystop Topical Powder) 1 applic TOP BID [facility] Last Admin: 12/15/16 17:00 Dose: Not Given Ondansetron HCl (Zofran Inj) 4 mg IVP Q6 PRN PRN Reason: Nausea/Vomiting Last Admin: 09/19/16 10:26 Dose: 4 mg Oxycodone HCl (Oxycodone Immediate Release Tab) 20 mg PO Q4H PRN PRN Reason: Pain, moderate (4-7) Last Admin: 12/16/16 02:01 Dose: 20 mg Pantoprazole Sodium (Protonix Ec Tab) 40 mg PO DAILY [facility] Last Admin: 12/15/16 09:10 Dose: 40 mg Repaglinide (Prandin) 0.5 mg PO TIDAC [facility] Last Admin: 12/15/16 16:59 Dose: 0.5 mg Sennosides (Senokot Tab) 25.8 mg PO HS [facility] Last Admin: 12/15/16 21:19 Dose: 25.8 mg Sevelamer HCl (Renagel) 1,600 mg PO TID [facility] Last Admin: 12/15/16 16:59 Dose: 1,600 mg Topiramate (Topamax) 50 mg PO BID [facility] Last Admin: 12/15/16 09:11 Dose: 50 mg Vitamin B Complex/Vit C/Folic Acid (Nephro-Ajay) 1 tab PO DAILY [facility] Last Admin: 12/15/16 09:13 Dose: 1 tab - Labs Labs: 12/10/16 14:00 12/06/16 11:30 PT 15.3 Seconds (9.8-13.1) H 12/02/16 13:05 INR 1.4 (0.9-1.2) H 12/02/16 13:05 APTT 37.0 Seconds (25.6-37.1) 12/02/16 13:05 - Constitutional Appears: No Acute Distress - Head Exam Head Exam: ATRAUMATIC, NORMAL INSPECTION, NORMOCEPHALIC - Eye Exam Eye Exam: EOMI, Normal appearance, PERRL Pupil Exam: NORMAL ACCOMODATION, PERRL - ENT Exam ENT Exam: Mucous Membranes Moist, Normal Exam - Neck Exam Neck Exam: Full ROM, Normal Inspection. absent: Lymphadenopathy - Respiratory Exam Respiratory Exam: Clear to Ausculation Bilateral, NORMAL BREATHING PATTERN - Cardiovascular Exam Cardiovascular Exam: REGULAR RHYTHM, +S1, +S2. absent: Murmur - GI/Abdominal Exam GI & Abdominal Exam: Soft, Normal Bowel Sounds. absent: Distended, Tenderness - Extremities Exam Extremities Exam: absent: Normal Inspection Additional comments: b/l BKA. Dressing C/D/I. WOund vac no leak - Neurological Exam Neurological Exam: Alert, Awake, CN II-XII Intact, Oriented x3 - Psychiatric Exam Psychiatric exam: Normal Affect, Normal Mood - Skin Skin Exam: Warm Assessment and Plan - Assessment and Plan (Free Text) Assessment: B/L BKA with R stump wound vac Plan on changing wound vac today. Continue current wound care. Change VAC at bedside in 3-4 days. Continue Santyl to right knee patellar wound. Will DW Dr. Mccormack <Raffy Mccormack - Last Filed: 12/17/16 11:39> Objective - Vital Signs/Intake and Output Vital Signs (last 24 hours): Temp Pulse Resp BP Pulse Ox 98.5 F 119 H 20 125/58 L 100 12/17/16 08:11 12/17/16 08:11 12/17/16 08:11 12/17/16 08:11 12/17/16 08:11 - Medications Medications: Current Medications Acetaminophen (Tylenol 325mg Tab) 650 mg PO Q4 PRN PRN Reason: Fever >100.4 F Last Admin: 11/21/16 00:44 Dose: 650 mg Acetaminophen (Tylenol 325mg Tab) 650 mg PO Q4 PRN PRN Reason: Pain, moderate (4-7) Last Admin: 09/16/16 22:34 Dose: 650 mg Albuterol Sulfate (Albuterol 0.083% Inhal Barbie (2.5 Mg/3 Ml) Ud) 2.5 mg INH RQ4 PRN PRN Reason: Shortness of Breath Albuterol/Ipratropium (Duoneb 3 Mg/0.5 Mg (3 Ml) Ud) 3 ml INH RQ4 PRN PRN Reason: Shortness of Breath Last Admin: 11/11/16 07:39 Dose: 3 ml Apixaban (Eliquis) 5 mg PO BID [facility] PRN Reason: Protocol Last Admin: 12/17/16 09:52 Dose: 5 mg Aspirin (Ecotrin) 81 mg PO DAILY [facility] Last Admin: 12/17/16 09:53 Dose: 81 mg Atorvastatin Calcium (Lipitor) 40 mg PO DAILY [facility] Last Admin: 12/17/16 09:53 Dose: 40 mg Benzonatate (Tessalon Perles) 200 mg PO TID PRN PRN Reason: Cough Last Admin: 11/21/16 09:06 Dose: 200 mg Calcium Carbonate (Oscal) 500 mg PO BIDWM [facility] Last Admin: 12/17/16 09:52 Dose: 500 mg Cinacalcet (Sensipar) 30 mg PO DAILY [facility] Last Admin: 12/17/16 09:51 Dose: 30 mg Collagenase (Santyl) 1 applic TOP DAILY [facility] Last Admin: 12/17/16 09:51 Dose: 1 applic Diphenhydramine HCl (Benadryl) 25 mg PO Q6 PRN PRN Reason: Itching / Pruritus Last Admin: 12/17/16 09:53 Dose: 25 mg Docusate Sodium (Colace) 100 mg PO BID [facility] Last Admin: 12/17/16 09:53 Dose: 100 mg [facility]etin Tha (Procrit) [facility] Last Admin: 12/16/16 23:29 Dose: 20,000 unit Ergocalciferol (Drisdol 50,000 Intl Units Cap) 1 cap PO WED [facility] Last Admin: 12/11/16 09:33 Dose: 1 cap Fluconazole (Diflucan) 100 mg PO DAILY [facility] Last Admin: 12/17/16 09:53 Dose: 100 mg Gabapentin (Neurontin) 300 mg PO TID [facility] Last Admin: 12/17/16 09:51 Dose: 300 mg Hydrocortisone (Anusol-Hc) 1 applic MA BID PRN PRN Reason: Inflammation Hydromorphone HCl (Dilaudid) 1 mg IVP Q4H PRN PRN Reason: Pain, severe (8-10) Last Admin: 12/17/16 10:40 Dose: 1 mg Meropenem 500 mg/ Sodium (Chloride) 100 mls @ 100 mls/hr IVPB DAILY@0100 [facility] Last Admin: 12/17/16 03:13 Dose: 100 mls/hr Gentamicin Sulfate/Sodium Chloride (Gentamicin 100mg/100ml Ns) 100 mg in 100 mls @ 100 mls/hr IVPB MWF [facility] Last Admin: 12/16/16 11:20 Dose: 100 mls/hr Tigecycline 25 mg/ Sodium (Chloride) 100 mls @ 100 mls/hr IVPB Q12 [facility] Last Admin: 12/17/16 10:04 Dose: 100 mls/hr Sodium Chloride (Sodium Chloride 0.45%) 500 mls @ 10 mls/hr IV .Q24H [facility] Last Admin: 12/14/16 18:50 Dose: 10 mls/hr Daptomycin 650 mg/ Sodium (Chloride) 100 mls @ 100 mls/hr IVPB MWF@1800 [facility] Stop: 12/21/16 18:01 Last Admin: 12/17/16 04:39 Dose: 100 mls/hr Nystatin (Nystop Topical Powder) 1 applic TOP BID [facility] Last Admin: 12/17/16 09:55 Dose: Not Given Ondansetron HCl (Zofran Inj) 4 mg IVP Q6 PRN PRN Reason: Nausea/Vomiting Last Admin: 09/19/16 10:26 Dose: 4 mg Oxycodone HCl (Oxycodone Immediate Release Tab) 20 mg PO Q4H PRN PRN Reason: Pain, moderate (4-7) Last Admin: 12/17/16 02:19 Dose: 20 mg Pantoprazole Sodium (Protonix Ec Tab) 40 mg PO DAILY [facility] Last Admin: 12/17/16 09:55 Dose: 40 mg Repaglinide (Prandin) 0.5 mg PO TIDAC [facility] Last Admin: 12/17/16 09:52 Dose: 0.5 mg Sennosides (Senokot Tab) 25.8 mg PO HS [facility] Last Admin: 12/16/16 21:48 Dose: 25.8 mg Sevelamer HCl (Renagel) 1,600 mg PO TID [facility] Last Admin: 12/17/16 09:51 Dose: 1,600 mg Topiramate (Topamax) 50 mg PO BID [facility] Last Admin: 12/17/16 09:52 Dose: 50 mg Vitamin B Complex/Vit C/Folic Acid (Nephro-Ajay) 1 tab PO DAILY [facility] Last Admin: 12/17/16 09:51 Dose: 1 tab - Labs Labs: 12/16/16 22:15 12/16/16 22:15 PT 15.3 Seconds (9.8-13.1) H 12/02/16 13:05 INR 1.4 (0.9-1.2) H 12/02/16 13:05 APTT 37.0 Seconds (25.6-37.1) 12/02/16 13:05 Assessment and Plan - Assessment and Plan (Free Text) Plan: Agree with resident physician assessment. Continue current wound care regiment.
[2016-12-16] MEDS: SODIUM CHLORIDE 0.9% IVPB SCH (09:05)
[2016-12-16] MEDS: TIGECYCLINE IVPB SCH (09:05)
[2016-12-16] MEDS: Multivitamin Vitamin B Complex (Nephro-Vite) Tab PO SCH (09:06)
[2016-12-16] MEDS: Pantoprazole 40 mg EC Tab PO SCH (09:07)
[2016-12-16] MEDS: Santyl Collagenase OINTMENT TOP SCH (09:07)
--- NOTE | 2016-12-16 11:08 | CP.PCM.PN ---
Subjective - Date & Time of Evaluation Date of Evaluation: 12/16/16 Time of Evaluation: 11:06 - Subjective Subjective: No new events reported No significant changes clinically Patient appears to be stable Chest no rales Heart no rubs Abdomen soft Impression and plan End stage renal disease to receive hemodialysis shortly as scheduled with ultrafiltration about 2000 mL and potassium bath 2 mEq and bicarbonate bath 34 Continue the same Objective - Vital Signs/Intake and Output Vital Signs (last 24 hours): Temp Pulse Resp BP Pulse Ox 97.7 F 111 H 20 152/77 H 100 12/16/16 07:41 12/16/16 07:41 12/16/16 07:41 12/16/16 07:41 12/16/16 07:41 - Medications Medications: Current Medications Acetaminophen (Tylenol 325mg Tab) 650 mg PO Q4 PRN PRN Reason: Fever >100.4 F Last Admin: 11/21/16 00:44 Dose: 650 mg Acetaminophen (Tylenol 325mg Tab) 650 mg PO Q4 PRN PRN Reason: Pain, moderate (4-7) Last Admin: 09/16/16 22:34 Dose: 650 mg Albuterol Sulfate (Albuterol 0.083% Inhal Barbie (2.5 Mg/3 Ml) Ud) 2.5 mg INH RQ4 PRN PRN Reason: Shortness of Breath Albuterol/Ipratropium (Duoneb 3 Mg/0.5 Mg (3 Ml) Ud) 3 ml INH RQ4 PRN PRN Reason: Shortness of Breath Last Admin: 11/11/16 07:39 Dose: 3 ml Apixaban (Eliquis) 5 mg PO BID [facility] PRN Reason: Protocol Last Admin: 12/16/16 09:06 Dose: 5 mg Aspirin (Ecotrin) 81 mg PO DAILY [facility] Last Admin: 12/16/16 09:07 Dose: 81 mg Atorvastatin Calcium (Lipitor) 40 mg PO DAILY [facility] Last Admin: 12/16/16 09:06 Dose: 40 mg Benzonatate (Tessalon Perles) 200 mg PO TID PRN PRN Reason: Cough Last Admin: 11/21/16 09:06 Dose: 200 mg Calcium Carbonate (Oscal) 500 mg PO BIDWM [facility] Last Admin: 12/16/16 09:06 Dose: 500 mg Cinacalcet (Sensipar) 30 mg PO DAILY [facility] Last Admin: 12/16/16 09:08 Dose: 30 mg Collagenase (Santyl) 1 applic TOP DAILY [facility] Last Admin: 12/16/16 09:07 Dose: 1 applic Diphenhydramine HCl (Benadryl) 25 mg PO Q6 PRN PRN Reason: Itching / Pruritus Last Admin: 11/12/16 08:34 Dose: 25 mg Docusate Sodium (Colace) 100 mg PO BID [facility] Last Admin: 12/16/16 09:07 Dose: 100 mg Epoetin Tha (Procrit) 20,000 unit IV MWF [facility] Last Admin: 12/13/16 08:13 Dose: 20,000 unit Ergocalciferol (Drisdol 50,000 Intl Units Cap) 1 cap PO WED [facility] Last Admin: 12/11/16 09:33 Dose: 1 cap Fluconazole (Diflucan) 100 mg PO DAILY [facility] Last Admin: 12/16/16 09:06 Dose: 100 mg Gabapentin (Neurontin) 300 mg PO TID [facility] Last Admin: 12/16/16 09:08 Dose: 300 mg Hydrocortisone (Anusol-Hc) 1 applic MA BID PRN PRN Reason: Inflammation Hydromorphone HCl (Dilaudid) 1 mg IVP Q4H PRN PRN Reason: Pain, severe (8-10) Meropenem 500 mg/ Sodium (Chloride) 100 mls @ 100 mls/hr IVPB DAILY@0100 [facility] Last Admin: 12/16/16 00:15 Dose: 100 mls/hr Gentamicin Sulfate/Sodium Chloride (Gentamicin 100mg/100ml Ns) 100 mg in 100 mls @ 100 mls/hr IVPB MWF [facility] Last Admin: 12/13/16 09:53 Dose: 100 mls/hr Tigecycline 25 mg/ Sodium (Chloride) 100 mls @ 100 mls/hr IVPB Q12 [facility] Last Admin: 12/16/16 09:05 Dose: 100 mls/hr Sodium Chloride (Sodium Chloride 0.45%) 500 mls @ 10 mls/hr IV .Q24H [facility] Last Admin: 12/14/16 18:50 Dose: 10 mls/hr Daptomycin 650 mg/ Sodium (Chloride) 100 mls @ 100 mls/hr IVPB MWF@1800 [facility] Stop: 12/21/16 18:01 Nystatin (Nystop Topical Powder) 1 applic TOP BID [facility] Last Admin: 12/15/16 17:00 Dose: Not Given Ondansetron HCl (Zofran Inj) 4 mg IVP Q6 PRN PRN Reason: Nausea/Vomiting Last Admin: 09/19/16 10:26 Dose: 4 mg Oxycodone HCl (Oxycodone Immediate Release Tab) 20 mg PO Q4H PRN PRN Reason: Pain, moderate (4-7) Last Admin: 12/16/16 02:01 Dose: 20 mg Pantoprazole Sodium (Protonix Ec Tab) 40 mg PO DAILY [facility] Last Admin: 12/16/16 09:07 Dose: 40 mg Repaglinide (Prandin) 0.5 mg PO TIDAC [facility] Last Admin: 12/16/16 07:30 Dose: 0.5 mg Sennosides (Senokot Tab) 25.8 mg PO HS [facility] Last Admin: 12/15/16 21:19 Dose: 25.8 mg Sevelamer HCl (Renagel) 1,600 mg PO TID [facility] Last Admin: 12/16/16 09:06 Dose: 1,600 mg Topiramate (Topamax) 50 mg PO BID [facility] Last Admin: 12/16/16 09:08 Dose: 50 mg Vitamin B Complex/Vit C/Folic Acid (Nephro-Ajay) 1 tab PO DAILY [facility] Last Admin: 12/16/16 09:06 Dose: 1 tab - Labs Labs: 12/10/16 14:00 12/06/16 11:30 PT 15.3 Seconds (9.8-13.1) H 12/02/16 13:05 INR 1.4 (0.9-1.2) H 12/02/16 13:05 APTT 37.0 Seconds (25.6-37.1) 12/02/16 13:05 Assessment and Plan (1) ESRD (end stage renal disease) Status: Chronic (2) Cellulitis of leg Status: Chronic
[2016-12-16] MEDS: Gentamicin 100mg/100ml NS 100 MG/100 ML BAG IVPB SCH (11:20)
--- NOTE | 2016-12-16 14:32 | CP.PCM.PN ---
Subjective - Date & Time of Evaluation Date of Evaluation: 12/16/16 Time of Evaluation: 14:23 - Subjective Subjective: Patient is awaiting both physical/occupational therapy and hemodialysis. Nurse just changed right patellar wound. Approx half the wound shows good granulation tissue. The central half consist of yellow fibrinous material that does not wipe off well. Santyl following by moist saline dressing applied. Right BK wound vac continues with small amount of serosanguinous drinage. Dr. Mccormack to change the wound vac dressing today. Patient continues on 4 IV and [address] Lemon renewed the daptomycin earlier today. Glucoses range from 74 to [address] Guadarrama's note appreciated. No fevers, cough, or dyspnea. No chest pain. R leg pain only when dressings changed or moving around. Blood work ordered for today: CBC, CMP, Fe/TIBC. HgbA1C. No other changes. Objective - Vital Signs/Intake and Output Vital Signs (last 24 hours): Temp Pulse Resp BP Pulse Ox 97.7 F 111 H 20 152/77 H 100 12/16/16 07:41 12/16/16 07:41 12/16/16 07:41 12/16/16 07:41 12/16/16 07:41 - Medications Medications: Current Medications Acetaminophen (Tylenol 325mg Tab) 650 mg PO Q4 PRN PRN Reason: Fever >100.4 F Last Admin: 11/21/16 00:44 Dose: 650 mg Acetaminophen (Tylenol 325mg Tab) 650 mg PO Q4 PRN PRN Reason: Pain, moderate (4-7) Last Admin: 09/16/16 22:34 Dose: 650 mg Albuterol Sulfate (Albuterol 0.083% Inhal Barbie (2.5 Mg/3 Ml) Ud) 2.5 mg INH RQ4 PRN PRN Reason: Shortness of Breath Albuterol/Ipratropium (Duoneb 3 Mg/0.5 Mg (3 Ml) Ud) 3 ml INH RQ4 PRN PRN Reason: Shortness of Breath Last Admin: 11/11/16 07:39 Dose: 3 ml Apixaban (Eliquis) 5 mg PO BID [facility] PRN Reason: Protocol Last Admin: 12/16/16 09:06 Dose: 5 mg Aspirin (Ecotrin) 81 mg PO DAILY [facility] Last Admin: 12/16/16 09:07 Dose: 81 mg Atorvastatin Calcium (Lipitor) 40 mg PO DAILY [facility] Last Admin: 12/16/16 09:06 Dose: 40 mg Benzonatate (Tessalon Perles) 200 mg PO TID PRN PRN Reason: Cough Last Admin: 11/21/16 09:06 Dose: 200 mg Calcium Carbonate (Oscal) 500 mg PO BIDWM [facility] Last Admin: 12/16/16 09:06 Dose: 500 mg Cinacalcet (Sensipar) 30 mg PO DAILY [facility] Last Admin: 12/16/16 09:08 Dose: 30 mg Collagenase (Santyl) 1 applic TOP DAILY [facility] Last Admin: 12/16/16 09:07 Dose: 1 applic Diphenhydramine HCl (Benadryl) 25 mg PO Q6 PRN PRN Reason: Itching / Pruritus Last Admin: 11/12/16 08:34 Dose: 25 mg Docusate Sodium (Colace) 100 mg PO BID [facility] Last Admin: 12/16/16 09:07 Dose: 100 mg Epoetin Tha (Procrit) [facility] Last Admin: 12/13/16 08:13 Dose: 20,000 unit Ergocalciferol (Drisdol 50,000 Intl Units Cap) 1 cap PO WED [facility] Last Admin: 12/11/16 09:33 Dose: 1 cap Fluconazole (Diflucan) 100 mg PO DAILY [facility] Last Admin: 12/16/16 09:06 Dose: 100 mg Gabapentin (Neurontin) 300 mg PO TID [facility] Last Admin: 12/16/16 13:25 Dose: 300 mg Hydrocortisone (Anusol-Hc) 1 applic [place] BID PRN PRN Reason: Inflammation Hydromorphone HCl (Dilaudid) 1 mg IVP Q4H PRN PRN Reason: Pain, severe (8-10) Meropenem 500 mg/ Sodium (Chloride) 100 mls @ 100 mls/hr IVPB DAILY@0100 [facility] Last Admin: 12/16/16 00:15 Dose: 100 mls/hr Gentamicin Sulfate/Sodium Chloride (Gentamicin 100mg/100ml Ns) 100 mg in 100 mls @ 100 mls/hr IVPB MWF [facility] Last Admin: 12/16/16 11:20 Dose: 100 mls/hr Tigecycline 25 mg/ Sodium (Chloride) 100 mls @ 100 mls/hr IVPB Q12 [facility] Last Admin: 12/16/16 09:05 Dose: 100 mls/hr Sodium Chloride (Sodium Chloride 0.45%) 500 mls @ 10 mls/hr IV .Q24H [facility] Last Admin: 12/14/16 18:50 Dose: 10 mls/hr Daptomycin 650 mg/ Sodium (Chloride) 100 mls @ 100 mls/hr IVPB MWF@1800 [facility] Stop: 12/21/16 18:01 Nystatin (Nystop Topical Powder) 1 applic TOP BID [facility] Last Admin: 12/16/16 09:05 Dose: Not Given Ondansetron HCl (Zofran Inj) 4 mg IVP Q6 PRN PRN Reason: Nausea/Vomiting Last Admin: 09/19/16 10:26 Dose: 4 mg Oxycodone HCl (Oxycodone Immediate Release Tab) 20 mg PO Q4H PRN PRN Reason: Pain, moderate (4-7) Last Admin: 12/16/16 11:19 Dose: 20 mg Pantoprazole Sodium (Protonix Ec Tab) 40 mg PO DAILY [facility] Last Admin: 12/16/16 09:07 Dose: 40 mg Repaglinide (Prandin) 0.5 mg PO TIDAC [facility] Last Admin: 12/16/16 11:30 Dose: 0.5 mg Sennosides (Senokot Tab) 25.8 mg PO HS [facility] Last Admin: 12/15/16 21:19 Dose: 25.8 mg Sevelamer HCl (Renagel) 1,600 mg PO TID [facility] Last Admin: 12/16/16 13:24 Dose: 1,600 mg Topiramate (Topamax) 50 mg PO BID [facility] Last Admin: 12/16/16 09:08 Dose: 50 mg Vitamin B Complex/Vit C/Folic Acid (Nephro-Ajay) 1 tab PO DAILY [facility] Last Admin: 12/16/16 09:06 Dose: 1 tab - Labs Labs: 12/10/16 14:00 12/06/16 11:30 PT 15.3 Seconds (9.8-13.1) H 12/02/16 13:05 INR 1.4 (0.9-1.2) H 12/02/16 13:05 APTT 37.0 Seconds (25.6-37.1) 12/02/16 13:05 - Constitutional Appears: No Acute Distress - Head Exam Head Exam: NORMAL INSPECTION - ENT Exam ENT Exam: Mucous Membranes Moist - Neck Exam Neck Exam: Normal Inspection Additional comments: R subclavian Permacath intact. - Respiratory Exam Respiratory Exam: Clear to Ausculation Bilateral, NORMAL BREATHING PATTERN - Cardiovascular Exam Cardiovascular Exam: REGULAR RHYTHM, +S1, +S2 - GI/Abdominal Exam GI & Abdominal Exam: Soft - Extremities Exam Additional comments: See subjective for right lower extremity findings. L femoral veing PICC line intact. All other extremities as before. - Back Exam Back Exam: NORMAL INSPECTION - Neurological Exam Neurological Exam: Alert, Oriented x3 - Psychiatric Exam Psychiatric exam: Normal Affect, Normal Mood - Skin Skin Exam: Dry, Normal Color, Warm Assessment and Plan (1) Status post below knee amputation of right lower extremity Assessment & Plan: Appears to be making progress, but right patella is worrisome. Await evaluation by Dr. Mccormack. Status: Acute (2) ESRD (end stage renal disease) on dialysis Status: Chronic (3) DM type 2 (diabetes mellitus, type 2) Assessment & Plan: Good results, continue same care. Status: Chronic (4) Coagulopathy Status: Chronic (5) Peripheral arterial occlusive disease Status: Chronic
--- NOTE | 2016-12-16 22:17 | PN ---
LOCATION: Room #661 This is a 46-year-old female with recent uncontrolled type 2 insulin requiring diabetes, now taken off all insulin therapy and is doing very well on just oral hypoglycemic drug therapy given at very low doses as noted. Her glycemic levels have ranged from 130 to 190 or 192 mg/dL. It was 124 at dinnertime yesterday as noted. She is undergoing IV antibiotic management for severe underlying osteomyelitis of the right below-knee amputation stump area. We will obtain serum chemistry and supplement accordingly as needed. We will follow with you. Irene Ambrose MD
[2016-12-16 22:26] LABS: BASO # 0.1 K/uL (0.0-0.2); BASO % 1.1 % (0.0-2.0); EOS # 0.7 K/uL (0.0-0.7); EOS % 8.7 % (0.0-4.0); HEMATOCRIT 31.2 % (34.0-47.0); LYMPH # 1.8 K/uL (1.0-4.3); LYMPH % 21.2 % (20.0-40.0); MEAN CELL VOLUME 98.2 fl (81.0-99.0); MEAN CORPUSCULAR HEMOGLOBIN 31.6 pg (27.0-31.0); MEAN CORPUSCULAR HGB CONC 32.2 g/dL (33.0-37.0); MEAN PLATELET VOLUME 9.9 fl (7.2-11.7); MONO % 11.8 % (0.0-10.0); NEUT # 4.9 K/uL (1.8-7.0); NEUT % 57.2 % (50.0-75.0); RED CELL DISTRIBUTION WIDTH 21.1 % (11.5-14.5); WHITE BLOOD COUNT 8.5 K/uL (4.8-10.8)
[2016-12-16 22:52] LABS: ALB/GLOB RATIO 0.7 (1.0-2.1); BILIRUBIN,TOTAL 0.4 mg/dl (0.2-1.3); CALCIUM 8.4 mg/dL (8.4-10.2); TOTAL PROTEIN 6.8 G/DL (6.3-8.2)
[2016-12-16 22:58] LABS: IRON 31 ug/dL (37-170)
[2016-12-16] MEDS: Epoetin Alfa 20000 UNIT/ML Inj IV SCH (23:29)
--- NOTE | 2016-12-16 23:59 | CP.PCM.PN ---
Subjective - Date & Time of Evaluation Date of Evaluation: 12/16/16 Time of Evaluation: 20:30 - Subjective Subjective: Patient is stable, no seizures. Topamax is renewed at 50 mg BID. She is getting hemodialysis for ESRD. Her wound is reported to be clean with 50% Granulation tissue. Continue Topamax. Objective - Vital Signs/Intake and Output Vital Signs (last 24 hours): Temp Pulse Resp BP Pulse Ox 97.9 F 107 H 17 107/65 96 12/16/16 15:59 12/16/16 15:59 12/16/16 15:59 12/16/16 15:59 12/16/16 15:59 - Medications Medications: Current Medications Acetaminophen (Tylenol 325mg Tab) 650 mg PO Q4 PRN PRN Reason: Fever >100.4 F Last Admin: 11/21/16 00:44 Dose: 650 mg Acetaminophen (Tylenol 325mg Tab) 650 mg PO Q4 PRN PRN Reason: Pain, moderate (4-7) Last Admin: 09/16/16 22:34 Dose: 650 mg Albuterol Sulfate (Albuterol 0.083% Inhal Barbie (2.5 Mg/3 Ml) Ud) 2.5 mg INH RQ4 PRN PRN Reason: Shortness of Breath Albuterol/Ipratropium (Duoneb 3 Mg/0.5 Mg (3 Ml) Ud) 3 ml INH RQ4 PRN PRN Reason: Shortness of Breath Last Admin: 11/11/16 07:39 Dose: 3 ml Apixaban (Eliquis) 5 mg PO BID [facility] PRN Reason: Protocol Last Admin: 12/16/16 17:26 Dose: 5 mg Aspirin (Ecotrin) 81 mg PO DAILY [facility] Last Admin: 12/16/16 09:07 Dose: 81 mg Atorvastatin Calcium (Lipitor) 40 mg PO DAILY [facility] Last Admin: 12/16/16 09:06 Dose: 40 mg Benzonatate (Tessalon Perles) 200 mg PO TID PRN PRN Reason: Cough Last Admin: 11/21/16 09:06 Dose: 200 mg Calcium Carbonate (Oscal) 500 mg PO BIDWM [facility] Last Admin: 12/16/16 17:27 Dose: 500 mg Cinacalcet (Sensipar) 30 mg PO DAILY [facility] Last Admin: 12/16/16 09:08 Dose: 30 mg Collagenase (Santyl) 1 applic TOP DAILY [facility] Last Admin: 12/16/16 09:07 Dose: 1 applic Diphenhydramine HCl (Benadryl) 25 mg PO Q6 PRN PRN Reason: Itching / Pruritus Last Admin: 11/12/16 08:34 Dose: 25 mg Docusate Sodium (Colace) 100 mg PO BID [facility] Last Admin: 12/16/16 17:26 Dose: 100 mg Epoetin Tha (Procrit) 20,000 unit IV MWF [facility] Last Admin: 12/16/16 23:29 Dose: 20,000 unit Ergocalciferol (Drisdol 50,000 Intl Units Cap) 1 cap PO WED [facility] Last Admin: 12/11/16 09:33 Dose: 1 cap Fluconazole (Diflucan) 100 mg PO DAILY [facility] Last Admin: 12/16/16 09:06 Dose: 100 mg Gabapentin (Neurontin) 300 mg PO TID [facility] Last Admin: 12/16/16 17:27 Dose: 300 mg Hydrocortisone (Anusol-Hc) 1 applic AL BID PRN PRN Reason: Inflammation Hydromorphone HCl (Dilaudid) 1 mg IVP Q4H PRN PRN Reason: Pain, severe (8-10) Meropenem 500 mg/ Sodium (Chloride) 100 mls @ 100 mls/hr IVPB DAILY@0100 [facility] Last Admin: 12/16/16 00:15 Dose: 100 mls/hr Gentamicin Sulfate/Sodium Chloride (Gentamicin 100mg/100ml Ns) 100 mg in 100 mls @ 100 mls/hr IVPB MWF [facility] Last Admin: 12/16/16 11:20 Dose: 100 mls/hr Tigecycline 25 mg/ Sodium (Chloride) 100 mls @ 100 mls/hr IVPB Q12 [facility] Last Admin: 12/16/16 09:05 Dose: 100 mls/hr Sodium Chloride (Sodium Chloride 0.45%) 500 mls @ 10 mls/hr IV .Q24H [facility] Last Admin: 12/14/16 18:50 Dose: 10 mls/hr Daptomycin 650 mg/ Sodium (Chloride) 100 mls @ 100 mls/hr IVPB MWF@1800 [facility] Stop: 12/21/16 18:01 Nystatin (Nystop Topical Powder) 1 applic TOP BID [facility] Last Admin: 12/16/16 17:27 Dose: Not Given Ondansetron HCl (Zofran Inj) 4 mg IVP Q6 PRN PRN Reason: Nausea/Vomiting Last Admin: 09/19/16 10:26 Dose: 4 mg Oxycodone HCl (Oxycodone Immediate Release Tab) 20 mg PO Q4H PRN PRN Reason: Pain, moderate (4-7) Last Admin: 12/16/16 17:29 Dose: 20 mg Pantoprazole Sodium (Protonix Ec Tab) 40 mg PO DAILY [facility] Last Admin: 12/16/16 09:07 Dose: 40 mg Repaglinide (Prandin) 0.5 mg PO TIDAC [facility] Last Admin: 12/16/16 17:27 Dose: 0.5 mg Sennosides (Senokot Tab) 25.8 mg PO HS [facility] Last Admin: 12/16/16 21:48 Dose: 25.8 mg Sevelamer HCl (Renagel) 1,600 mg PO TID [facility] Last Admin: 12/16/16 17:27 Dose: 1,600 mg Topiramate (Topamax) 50 mg PO BID [facility] Last Admin: 12/16/16 17:28 Dose: 50 mg Vitamin B Complex/Vit C/Folic Acid (Nephro-Ajay) 1 tab PO DAILY [facility] Last Admin: 12/16/16 09:06 Dose: 1 tab - Labs Labs: 12/16/16 22:15 12/16/16 22:15 PT 15.3 Seconds (9.8-13.1) H 12/02/16 13:05 INR 1.4 (0.9-1.2) H 12/02/16 13:05 APTT 37.0 Seconds (25.6-37.1) 12/02/16 13:05 Assessment and Plan (1) Diabetes Status: Chronic (2) ESRD (end stage renal disease) Status: Chronic (3) Cellulitis of leg Status: Chronic (4) Hyperlipidemia Status: Chronic (5) Back pain Status: Acute (6) Bacteremia due to Gram-negative bacteria Status: Acute (7) Diabetes mellitus type 2 with peripheral artery disease Status: Chronic (8) PVD (peripheral vascular disease) Status: Chronic (9) Osteomyelitis of right leg Status: Acute
[2016-12-17] MEDS: SODIUM CHLORIDE 0.9% IVPB SCH ×3 (02:12→22:47)
[2016-12-17] MEDS: TIGECYCLINE IVPB SCH ×3 (02:12→22:47)
[2016-12-17] MEDS: oxyCODONE 10 mg Immediate Release Tab PO PRN ×2 (02:19→16:46)
[2016-12-17] MEDS: Meropenem 500 MG in Sodium Chloride 0.9% 100 ML IVPB SCH (03:13)
--- NOTE | 2016-12-17 07:26 | CP.PCM.PN ---
<[place] - Last Filed: 12/17/16 07:24> Subjective - Date & Time of Evaluation Date of Evaluation: 12/17/16 Time of Evaluation: 07:24 - Subjective Subjective: Surgery for Dr. Easton Braun s&yahir NOLAN. Denies F/C/N/V/D/CP/SOB. Objective - Vital Signs/Intake and Output Vital Signs (last 24 hours): Temp Pulse Resp BP Pulse Ox 97.5 F L 100 H 17 131/64 100 12/17/16 00:07 12/17/16 00:07 12/17/16 00:07 12/17/16 00:07 12/17/16 00:07 - Medications Medications: Current Medications Acetaminophen (Tylenol 325mg Tab) 650 mg PO Q4 PRN PRN Reason: Fever >100.4 F Last Admin: 11/21/16 00:44 Dose: 650 mg Acetaminophen (Tylenol 325mg Tab) 650 mg PO Q4 PRN PRN Reason: Pain, moderate (4-7) Last Admin: 09/16/16 22:34 Dose: 650 mg Albuterol Sulfate (Albuterol 0.083% Inhal Barbie (2.5 Mg/3 Ml) Ud) 2.5 mg INH RQ4 PRN PRN Reason: Shortness of Breath Albuterol/Ipratropium (Duoneb 3 Mg/0.5 Mg (3 Ml) Ud) 3 ml INH RQ4 PRN PRN Reason: Shortness of Breath Last Admin: 11/11/16 07:39 Dose: 3 ml Apixaban (Eliquis) 5 mg PO BID [facility] PRN Reason: Protocol Last Admin: 12/16/16 17:26 Dose: 5 mg Aspirin (Ecotrin) 81 mg PO DAILY [facility] Last Admin: 12/16/16 09:07 Dose: 81 mg Atorvastatin Calcium (Lipitor) 40 mg PO DAILY [facility] Last Admin: 12/16/16 09:06 Dose: 40 mg Benzonatate (Tessalon Perles) 200 mg PO TID PRN PRN Reason: Cough Last Admin: 11/21/16 09:06 Dose: 200 mg Calcium Carbonate (Oscal) 500 mg PO BIDWM [facility] Last Admin: 12/16/16 17:27 Dose: 500 mg Cinacalcet (Sensipar) 30 mg PO DAILY [facility] Last Admin: 12/16/16 09:08 Dose: 30 mg Collagenase (Santyl) 1 applic TOP DAILY [facility] Last Admin: 12/16/16 09:07 Dose: 1 applic Diphenhydramine HCl (Benadryl) 25 mg PO Q6 PRN PRN Reason: Itching / Pruritus Last Admin: 11/12/16 08:34 Dose: 25 mg Docusate Sodium (Colace) 100 mg PO BID [facility] Last Admin: 12/16/16 17:26 Dose: 100 mg Epoetin Tha (Procrit) 20,000 unit IV MWF [facility] Last Admin: 12/16/16 23:29 Dose: 20,000 unit Ergocalciferol (Drisdol 50,000 Intl Units Cap) 1 cap PO WED [facility] Last Admin: 12/11/16 09:33 Dose: 1 cap Fluconazole (Diflucan) 100 mg PO DAILY [facility] Last Admin: 12/16/16 09:06 Dose: 100 mg Gabapentin (Neurontin) 300 mg PO TID [facility] Last Admin: 12/16/16 17:27 Dose: 300 mg Hydrocortisone (Anusol-Hc) 1 applic [place] BID PRN PRN Reason: Inflammation Hydromorphone HCl (Dilaudid) 1 mg IVP Q4H PRN PRN Reason: Pain, severe (8-10) Meropenem 500 mg/ Sodium (Chloride) 100 mls @ 100 mls/hr IVPB DAILY@0100 [facility] Last Admin: 12/17/16 03:13 Dose: 100 mls/hr Gentamicin Sulfate/Sodium Chloride (Gentamicin 100mg/100ml Ns) 100 mg in 100 mls @ 100 mls/hr IVPB MWF [facility] Last Admin: 12/16/16 11:20 Dose: 100 mls/hr Tigecycline 25 mg/ Sodium (Chloride) 100 mls @ 100 mls/hr IVPB Q12 [facility] Last Admin: 12/17/16 02:12 Dose: 100 mls/hr Sodium Chloride (Sodium Chloride 0.45%) 500 mls @ 10 mls/hr IV .Q24H [facility] Last Admin: 12/14/16 18:50 Dose: 10 mls/hr Daptomycin 650 mg/ Sodium (Chloride) 100 mls @ 100 mls/hr IVPB MWF@1800 [facility] Stop: 12/21/16 18:01 Last Admin: 12/17/16 04:39 Dose: 100 mls/hr Nystatin (Nystop Topical Powder) 1 applic TOP BID [facility] Last Admin: 12/16/16 17:27 Dose: Not Given Ondansetron HCl (Zofran Inj) 4 mg IVP Q6 PRN PRN Reason: Nausea/Vomiting Last Admin: 09/19/16 10:26 Dose: 4 mg Oxycodone HCl (Oxycodone Immediate Release Tab) 20 mg PO Q4H PRN PRN Reason: Pain, moderate (4-7) Last Admin: 12/17/16 02:19 Dose: 20 mg Pantoprazole Sodium (Protonix Ec Tab) 40 mg PO DAILY [facility] Last Admin: 12/16/16 09:07 Dose: 40 mg Repaglinide (Prandin) 0.5 mg PO TIDAC [facility] Last Admin: 12/16/16 17:27 Dose: 0.5 mg Sennosides (Senokot Tab) 25.8 mg PO HS [facility] Last Admin: 12/16/16 21:48 Dose: 25.8 mg Sevelamer HCl (Renagel) 1,600 mg PO TID [facility] Last Admin: 12/16/16 17:27 Dose: 1,600 mg Topiramate (Topamax) 50 mg PO BID [facility] Last Admin: 12/16/16 17:28 Dose: 50 mg Vitamin B Complex/Vit C/Folic Acid (Nephro-Ajay) 1 tab PO DAILY [facility] Last Admin: 12/16/16 09:06 Dose: 1 tab - Labs Labs: 12/16/16 22:15 12/16/16 22:15 PT 15.3 Seconds (9.8-13.1) H 12/02/16 13:05 INR 1.4 (0.9-1.2) H 12/02/16 13:05 APTT 37.0 Seconds (25.6-37.1) 12/02/16 13:05 - Constitutional Appears: No Acute Distress - Head Exam Head Exam: ATRAUMATIC, NORMAL INSPECTION, NORMOCEPHALIC - Eye Exam Eye Exam: EOMI, Normal appearance, PERRL Pupil Exam: NORMAL ACCOMODATION, PERRL - ENT Exam ENT Exam: Mucous Membranes Moist, Normal Exam - Neck Exam Neck Exam: Full ROM, Normal Inspection. absent: Lymphadenopathy - Respiratory Exam Respiratory Exam: Clear to Ausculation Bilateral, NORMAL BREATHING PATTERN - Cardiovascular Exam Cardiovascular Exam: REGULAR RHYTHM, +S1, +S2. absent: Murmur - GI/Abdominal Exam GI & Abdominal Exam: Soft, Normal Bowel Sounds. absent: Distended, Tenderness - Extremities Exam Extremities Exam: Normal Capillary Refill. absent: Joint Swelling, Pedal Edema Additional comments: b/l BKA. R stump wound vac in place. No leak. - Neurological Exam Neurological Exam: Alert, Awake, CN II-XII Intact, Oriented x3 - Psychiatric Exam Psychiatric exam: Normal Affect, Normal Mood - Skin Skin Exam: Dry, Warm Assessment and Plan - Assessment and Plan (Free Text) Assessment: B/L BKA with R stump wound vac Plan on changing wound vac today. Continue current wound care. Change VAC at bedside in 3-4 days. Continue Santyl to right knee patellar wound. Will DW Dr. Mccormack <Raffy Mccormack - Last Filed: 12/17/16 11:38> Objective - Vital Signs/Intake and Output Vital Signs (last 24 hours): Temp Pulse Resp BP Pulse Ox 98.5 F 119 H 20 125/58 L 100 12/17/16 08:11 12/17/16 08:11 12/17/16 08:11 12/17/16 08:11 12/17/16 08:11 - Medications Medications: Current Medications Acetaminophen (Tylenol 325mg Tab) 650 mg PO Q4 PRN PRN Reason: Fever >100.4 F Last Admin: 11/21/16 00:44 Dose: 650 mg Acetaminophen (Tylenol 325mg Tab) 650 mg PO Q4 PRN PRN Reason: Pain, moderate (4-7) Last Admin: 09/16/16 22:34 Dose: 650 mg Albuterol Sulfate (Albuterol 0.083% Inhal Barbie (2.5 Mg/3 Ml) Ud) 2.5 mg INH RQ4 PRN PRN Reason: Shortness of Breath Albuterol/Ipratropium (Duoneb 3 Mg/0.5 Mg (3 Ml) Ud) 3 ml INH RQ4 PRN PRN Reason: Shortness of Breath Last Admin: 11/11/16 07:39 Dose: 3 ml Apixaban (Eliquis) 5 mg PO BID [facility] PRN Reason: Protocol Last Admin: 12/17/16 09:52 Dose: 5 mg Aspirin (Ecotrin) 81 mg PO DAILY [facility] Last Admin: 12/17/16 09:53 Dose: 81 mg Atorvastatin Calcium (Lipitor) 40 mg PO DAILY [facility] Last Admin: 12/17/16 09:53 Dose: 40 mg Benzonatate (Tessalon Perles) 200 mg PO TID PRN PRN Reason: Cough Last Admin: 11/21/16 09:06 Dose: 200 mg Calcium Carbonate (Oscal) 500 mg PO BIDWM [facility] Last Admin: 12/17/16 09:52 Dose: 500 mg Cinacalcet (Sensipar) 30 mg PO DAILY [facility] Last Admin: 12/17/16 09:51 Dose: 30 mg Collagenase (Santyl) 1 applic TOP DAILY [facility] Last Admin: 12/17/16 09:51 Dose: 1 applic Diphenhydramine HCl (Benadryl) 25 mg PO Q6 PRN PRN Reason: Itching / Pruritus Last Admin: 12/17/16 09:53 Dose: 25 mg Docusate Sodium (Colace) 100 mg PO BID [facility] Last Admin: 12/17/16 09:53 Dose: 100 mg Epoetin Tha (Procrit) 20,000 unit IV MWF [facility] Last Admin: 12/16/16 23:29 Dose: 20,000 unit Ergocalciferol (Drisdol 50,000 Intl Units Cap) 1 cap PO WED [facility] Last Admin: 12/11/16 09:33 Dose: 1 cap Fluconazole (Diflucan) 100 mg PO DAILY [facility] Last Admin: 12/17/16 09:53 Dose: 100 mg Gabapentin (Neurontin) 300 mg PO TID [facility] Last Admin: 12/17/16 09:51 Dose: 300 mg Hydrocortisone (Anusol-Hc) 1 applic [place] BID PRN PRN Reason: Inflammation Hydromorphone HCl (Dilaudid) 1 mg IVP Q4H PRN PRN Reason: Pain, severe (8-10) Last Admin: 12/17/16 10:40 Dose: 1 mg Meropenem 500 mg/ Sodium (Chloride) 100 mls @ 100 mls/hr IVPB DAILY@0100 [facility] Last Admin: 12/17/16 03:13 Dose: 100 mls/hr Gentamicin Sulfate/Sodium Chloride (Gentamicin 100mg/100ml Ns) 100 mg in 100 mls @ 100 mls/hr IVPB MWF [facility] Last Admin: 12/16/16 11:20 Dose: 100 mls/hr Tigecycline 25 mg/ Sodium (Chloride) 100 mls @ 100 mls/hr IVPB Q12 [facility] Last Admin: 12/17/16 10:04 Dose: 100 mls/hr Sodium Chloride (Sodium Chloride 0.45%) 500 mls @ 10 mls/hr IV .Q24H [facility] Last Admin: 12/14/16 18:50 Dose: 10 mls/hr Daptomycin 650 mg/ Sodium (Chloride) 100 mls @ 100 mls/hr IVPB MWF@1800 [facility] Stop: 12/21/16 18:01 Last Admin: 12/17/16 04:39 Dose: 100 mls/hr Nystatin (Nystop Topical Powder) 1 applic TOP BID [facility] Last Admin: 12/17/16 09:55 Dose: Not Given Ondansetron HCl (Zofran Inj) 4 mg IVP Q6 PRN PRN Reason: Nausea/Vomiting Last Admin: 09/19/16 10:26 Dose: 4 mg Oxycodone HCl (Oxycodone Immediate Release Tab) 20 mg PO Q4H PRN PRN Reason: Pain, moderate (4-7) Last Admin: 12/17/16 02:19 Dose: 20 mg Pantoprazole Sodium (Protonix Ec Tab) 40 mg PO DAILY [facility] Last Admin: 12/17/16 09:55 Dose: 40 mg Repaglinide (Prandin) 0.5 mg PO TIDAC [facility] Last Admin: 12/17/16 09:52 Dose: 0.5 mg Sennosides (Senokot Tab) 25.8 mg PO HS [facility] Last Admin: 12/16/16 21:48 Dose: 25.8 mg Sevelamer HCl (Renagel) 1,600 mg PO TID [facility] Last Admin: 12/17/16 09:51 Dose: 1,600 mg Topiramate (Topamax) 50 mg PO BID [facility] Last Admin: 12/17/16 09:52 Dose: 50 mg Vitamin B Complex/Vit C/Folic Acid (Nephro-Ajay) 1 tab PO DAILY [facility] Last Admin: 12/17/16 09:51 Dose: 1 tab - Labs Labs: 12/16/16 22:15 08/07/17 22:15 PT 15.3 Seconds (9.8-13.1) H 12/02/16 13:05 INR 1.4 (0.9-1.2) H 12/02/16 13:05 APTT 37.0 Seconds (25.6-37.1) 12/02/16 13:05 Assessment and Plan - Assessment and Plan (Free Text) Plan: Patient seen and examined. Right BKA stump VAC dressing changed at the bedside and wound examined. Overall, right BKA wound is showing progress toward healing. There is excellent granulation tissue formation throughout entire wound bed. There is no evidence of tissue necrosis, ischemia or krystal signs of infection. Right patellar wound is progressing slowly with granulation at the edges of the wound bed. Continue current treatment for now - VAC dressing to the BKA stump and enzymatic debridement with Santyl to the patellar wound.
--- NOTE | 2016-12-17 08:18 | PN ---
DATE: 12/16/2016 SUBJECTIVE: This is a 46-year-old female with known history of type 2 diabetes currently off all insulin regimen and doing very well at just a low dose oral hypoglycemic drug therapy as given. Her latest glucose values have ranged from 74 to 124 mg/dL. No apparent were observed by the nursing staff overnight with a low of glycemic profile today as noted. Her oral intake however is very variable and suboptimal as per the nursing staff. hypoglycemic rates to those levels, so at this time we will actually continue still Prandin given as 0.5 mg t.i.d. before meals as ordered. We will titrate incrementally as indicated to optimize metabolic control. We will obtain serial chemistry and supplement accordingly as needed. We will follow with you. Irene Ambrose MD
[2016-12-17] MEDS: Santyl Collagenase OINTMENT TOP SCH (09:51)
[2016-12-17] MEDS: Multivitamin Vitamin B Complex (Nephro-Vite) Tab PO SCH (09:51)
[2016-12-17] MEDS: Pantoprazole 40 mg EC Tab PO SCH (09:55)
--- NOTE | 2016-12-17 10:53 | CP.PCM.PN ---
Subjective - Date & Time of Evaluation Date of Evaluation: 12/17/16 Time of Evaluation: 10:52 - Subjective Subjective: Patient was seen in the morning she was eating her breakfast and having good appetite 2 eggs included in the breakfast No new events reported Vital signs stable Continue the same. Objective - Vital Signs/Intake and Output Vital Signs (last 24 hours): Temp Pulse Resp BP Pulse Ox 98.5 F 119 H 20 125/58 L 100 12/17/16 08:11 12/17/16 08:11 12/17/16 08:11 12/17/16 08:11 12/17/16 08:11 - Medications Medications: Current Medications Acetaminophen (Tylenol 325mg Tab) 650 mg PO Q4 PRN PRN Reason: Fever >100.4 F Last Admin: 11/21/16 00:44 Dose: 650 mg Acetaminophen (Tylenol 325mg Tab) 650 mg PO Q4 PRN PRN Reason: Pain, moderate (4-7) Last Admin: 09/16/16 22:34 Dose: 650 mg Albuterol Sulfate (Albuterol 0.083% Inhal Barbie (2.5 Mg/3 Ml) Ud) 2.5 mg INH RQ4 PRN PRN Reason: Shortness of Breath Albuterol/Ipratropium (Duoneb 3 Mg/0.5 Mg (3 Ml) Ud) 3 ml INH RQ4 PRN PRN Reason: Shortness of Breath Last Admin: 11/11/16 07:39 Dose: 3 ml Apixaban (Eliquis) 5 mg PO BID [facility] PRN Reason: Protocol Last Admin: 12/17/16 09:52 Dose: 5 mg Aspirin (Ecotrin) 81 mg PO DAILY [facility] Last Admin: 12/17/16 09:53 Dose: 81 mg Atorvastatin Calcium (Lipitor) 40 mg PO DAILY [facility] Last Admin: 12/17/16 09:53 Dose: 40 mg Benzonatate (Tessalon Perles) 200 mg PO TID PRN PRN Reason: Cough Last Admin: 11/21/16 09:06 Dose: 200 mg Calcium Carbonate (Oscal) 500 mg PO BIDWM [facility] Last Admin: 12/17/16 09:52 Dose: 500 mg Cinacalcet (Sensipar) 30 mg PO DAILY [facility] Last Admin: 12/17/16 09:51 Dose: 30 mg Collagenase (Santyl) 1 applic TOP DAILY [facility] Last Admin: 12/17/16 09:51 Dose: 1 applic Diphenhydramine HCl (Benadryl) 25 mg PO Q6 PRN PRN Reason: Itching / Pruritus Last Admin: 12/17/16 09:53 Dose: 25 mg Docusate Sodium (Colace) 100 mg PO BID [facility] Last Admin: 12/17/16 09:53 Dose: 100 mg Epoetin Tha (Procrit) 20,000 unit IV MWF [facility] Last Admin: 12/16/16 23:29 Dose: 20,000 unit Ergocalciferol (Drisdol 50,000 Intl Units Cap) 1 cap PO WED [facility] Last Admin: 12/11/16 09:33 Dose: 1 cap Fluconazole (Diflucan) 100 mg PO DAILY [facility] Last Admin: 12/17/16 09:53 Dose: 100 mg Gabapentin (Neurontin) 300 mg PO TID [facility] Last Admin: 12/17/16 09:51 Dose: 300 mg Hydrocortisone (Anusol-Hc) 1 applic IN BID PRN PRN Reason: Inflammation Hydromorphone HCl (Dilaudid) 1 mg IVP Q4H PRN PRN Reason: Pain, severe (8-10) Last Admin: 12/17/16 10:40 Dose: 1 mg Meropenem 500 mg/ Sodium (Chloride) 100 mls @ 100 mls/hr IVPB DAILY@0100 [facility] Last Admin: 12/17/16 03:13 Dose: 100 mls/hr Gentamicin Sulfate/Sodium Chloride (Gentamicin 100mg/100ml Ns) 100 mg in 100 mls @ 100 mls/hr IVPB MWF [facility] Last Admin: 12/16/16 11:20 Dose: 100 mls/hr Tigecycline 25 mg/ Sodium (Chloride) 100 mls @ 100 mls/hr IVPB Q12 [facility] Last Admin: 12/17/16 10:04 Dose: 100 mls/hr Sodium Chloride (Sodium Chloride 0.45%) 500 mls @ 10 mls/hr IV .Q24H [facility] Last Admin: 12/14/16 18:50 Dose: 10 mls/hr Daptomycin 650 mg/ Sodium (Chloride) 100 mls @ 100 mls/hr IVPB MWF@1800 [facility] Stop: 12/21/16 18:01 Last Admin: 12/17/16 04:39 Dose: 100 mls/hr Nystatin (Nystop Topical Powder) 1 applic TOP BID [facility] Last Admin: 12/17/16 09:55 Dose: Not Given Ondansetron HCl (Zofran Inj) 4 mg IVP Q6 PRN PRN Reason: Nausea/Vomiting Last Admin: 09/19/16 10:26 Dose: 4 mg Oxycodone HCl (Oxycodone Immediate Release Tab) 20 mg PO Q4H PRN PRN Reason: Pain, moderate (4-7) Last Admin: 12/17/16 02:19 Dose: 20 mg Pantoprazole Sodium (Protonix Ec Tab) 40 mg PO DAILY [facility] Last Admin: 12/17/16 09:55 Dose: 40 mg Repaglinide (Prandin) 0.5 mg PO TIDAC [facility] Last Admin: 12/17/16 09:52 Dose: 0.5 mg Sennosides (Senokot Tab) 25.8 mg PO HS [facility] Last Admin: 12/16/16 21:48 Dose: 25.8 mg Sevelamer HCl (Renagel) 1,600 mg PO TID [facility] Last Admin: 12/17/16 09:51 Dose: 1,600 mg Topiramate (Topamax) 50 mg PO BID [facility] Last Admin: 12/17/16 09:52 Dose: 50 mg Vitamin B Complex/Vit C/Folic Acid (Nephro-Ajay) 1 tab PO DAILY [facility] Last Admin: 12/17/16 09:51 Dose: 1 tab - Labs Labs: 12/16/16 22:15 12/16/16 22:15 PT 15.3 Seconds (9.8-13.1) H 12/02/16 13:05 INR 1.4 (0.9-1.2) H 12/02/16 13:05 APTT 37.0 Seconds (25.6-37.1) 12/02/16 13:05 Assessment and Plan (1) ESRD (end stage renal disease) Status: Chronic (2) Cellulitis of leg Status: Chronic
--- NOTE | 2016-12-17 11:41 | CP.PCM.PN ---
Subjective - Date & Time of Evaluation Date of Evaluation: 12/17/16 Time of Evaluation: 11:37 - Subjective Subjective: Patient seen with Dr. Mccormack and Nurse Jesu for replacement of right BK wound vac. The wound shows excellent granulation tissue, no purulence or odor. However, it is very large - approx 4cm x 10cm. The right patellar wound is responding to Santyl and saline dressings and is now about 4-5cm in diameter with better than 40% nice pink granulation tissue. Present wound care and 4 iv and 1 po antibiotic to continue. DM controlled. Glucoses around 80. Patient has sl irritated eyes, scratchy throat/cough - ??allergy vs viral? Will watch. Finished HD at 2am and is very tired today. Otherwise OK Objective - Vital Signs/Intake and Output Vital Signs (last 24 hours): Temp Pulse Resp BP Pulse Ox 98.5 F 119 H 20 125/58 L 100 12/17/16 08:11 12/17/16 08:11 12/17/16 08:11 12/17/16 08:11 12/17/16 08:11 - Medications Medications: Current Medications Acetaminophen (Tylenol 325mg Tab) 650 mg PO Q4 PRN PRN Reason: Fever >100.4 F Last Admin: 11/21/16 00:44 Dose: 650 mg Acetaminophen (Tylenol 325mg Tab) 650 mg PO Q4 PRN PRN Reason: Pain, moderate (4-7) Last Admin: 09/16/16 22:34 Dose: 650 mg Albuterol Sulfate (Albuterol 0.083% Inhal Barbie (2.5 Mg/3 Ml) Ud) 2.5 mg INH RQ4 PRN PRN Reason: Shortness of Breath Albuterol/Ipratropium (Duoneb 3 Mg/0.5 Mg (3 Ml) Ud) 3 ml INH RQ4 PRN PRN Reason: Shortness of Breath Last Admin: 11/11/16 07:39 Dose: 3 ml Apixaban (Eliquis) 5 mg PO BID [facility] PRN Reason: Protocol Last Admin: 12/17/16 09:52 Dose: 5 mg Aspirin (Ecotrin) 81 mg PO DAILY [facility] Last Admin: 12/17/16 09:53 Dose: 81 mg Atorvastatin Calcium (Lipitor) 40 mg PO DAILY [facility] Last Admin: 12/17/16 09:53 Dose: 40 mg Benzonatate (Tessalon Perles) 200 mg PO TID PRN PRN Reason: Cough Last Admin: 11/21/16 09:06 Dose: 200 mg Calcium Carbonate (Oscal) 500 mg PO BIDWM [facility] Last Admin: 12/17/16 09:52 Dose: 500 mg Cinacalcet (Sensipar) 30 mg PO DAILY [facility] Last Admin: 12/17/16 09:51 Dose: 30 mg Collagenase (Santyl) 1 applic TOP DAILY [facility] Last Admin: 12/17/16 09:51 Dose: 1 applic Diphenhydramine HCl (Benadryl) 25 mg PO Q6 PRN PRN Reason: Itching / Pruritus Last Admin: 12/17/16 09:53 Dose: 25 mg Docusate Sodium (Colace) 100 mg PO BID [facility] Last Admin: 12/17/16 09:53 Dose: 100 mg Epoetin Tha (Procrit) 20,000 unit IV MWF [facility] Last Admin: 12/16/16 23:29 Dose: 20,000 unit Ergocalciferol (Drisdol 50,000 Intl Units Cap) 1 cap PO WED [facility] Last Admin: 12/11/16 09:33 Dose: 1 cap Fluconazole (Diflucan) 100 mg PO DAILY [facility] Last Admin: 12/17/16 09:53 Dose: 100 mg Gabapentin (Neurontin) 300 mg PO TID [facility] Last Admin: 12/17/16 09:51 Dose: 300 mg Hydrocortisone (Anusol-Hc) 1 applic [place] BID PRN PRN Reason: Inflammation Hydromorphone HCl (Dilaudid) 1 mg IVP Q4H PRN PRN Reason: Pain, severe (8-10) Last Admin: 12/17/16 10:40 Dose: 1 mg Meropenem 500 mg/ Sodium (Chloride) 100 mls @ 100 mls/hr IVPB DAILY@0100 [facility] Last Admin: 12/17/16 03:13 Dose: 100 mls/hr Gentamicin Sulfate/Sodium Chloride (Gentamicin 100mg/100ml Ns) 100 mg in 100 mls @ 100 mls/hr IVPB MWF [facility] Last Admin: 12/16/16 11:20 Dose: 100 mls/hr Tigecycline 25 mg/ Sodium (Chloride) 100 mls @ 100 mls/hr IVPB Q12 [facility] Last Admin: 12/17/16 10:04 Dose: 100 mls/hr Sodium Chloride (Sodium Chloride 0.45%) 500 mls @ 10 mls/hr IV .Q24H [facility] Last Admin: 12/14/16 18:50 Dose: 10 mls/hr Daptomycin 650 mg/ Sodium (Chloride) 100 mls @ 100 mls/hr IVPB MWF@1800 [facility] Stop: 12/21/16 18:01 Last Admin: 12/17/16 04:39 Dose: 100 mls/hr Nystatin (Nystop Topical Powder) 1 applic TOP BID [facility] Last Admin: 12/17/16 09:55 Dose: Not Given Ondansetron HCl (Zofran Inj) 4 mg IVP Q6 PRN PRN Reason: Nausea/Vomiting Last Admin: 09/19/16 10:26 Dose: 4 mg Oxycodone HCl (Oxycodone Immediate Release Tab) 20 mg PO Q4H PRN PRN Reason: Pain, moderate (4-7) Last Admin: 12/17/16 02:19 Dose: 20 mg Pantoprazole Sodium (Protonix Ec Tab) 40 mg PO DAILY [facility] Last Admin: 12/17/16 09:55 Dose: 40 mg Repaglinide (Prandin) 0.5 mg PO TIDAC [facility] Last Admin: 12/17/16 09:52 Dose: 0.5 mg Sennosides (Senokot Tab) 25.8 mg PO HS [facility] Last Admin: 12/16/16 21:48 Dose: 25.8 mg Sevelamer HCl (Renagel) 1,600 mg PO TID [facility] Last Admin: 12/17/16 09:51 Dose: 1,600 mg Topiramate (Topamax) 50 mg PO BID [facility] Last Admin: 12/17/16 09:52 Dose: 50 mg Vitamin B Complex/Vit C/Folic Acid (Nephro-Ajay) 1 tab PO DAILY [facility] Last Admin: 12/17/16 09:51 Dose: 1 tab - Labs Labs: 12/16/16 22:15 12/16/16 22:15 PT 15.3 Seconds (9.8-13.1) H 12/02/16 13:05 INR 1.4 (0.9-1.2) H 12/02/16 13:05 APTT 37.0 Seconds (25.6-37.1) 12/02/16 13:05 - Constitutional Appears: No Acute Distress - Head Exam Head Exam: NORMAL INSPECTION - Eye Exam Eye Exam: Normal appearance - ENT Exam ENT Exam: Mucous Membranes Moist - Neck Exam Neck Exam: Normal Inspection - Respiratory Exam Respiratory Exam: Clear to Ausculation Bilateral, NORMAL BREATHING PATTERN - Cardiovascular Exam Cardiovascular Exam: REGULAR RHYTHM, +S1, +S2 - GI/Abdominal Exam GI & Abdominal Exam: Soft, Normal Bowel Sounds - Extremities Exam Additional comments: See Subjective for RLE L femoral PICC line intact All other extremities as before. - Back Exam Back Exam: NORMAL INSPECTION - Neurological Exam Neurological Exam: Alert, Awake - Psychiatric Exam Psychiatric exam: Normal Affect, Normal Mood - Skin Skin Exam: Dry, Normal Color, Warm Assessment and Plan (1) Status post below knee amputation of right lower extremity Status: Acute (2) ESRD (end stage renal disease) on dialysis Status: Chronic (3) DM type 2 (diabetes mellitus, type 2) Status: Chronic (4) Coagulopathy Status: Chronic (5) Peripheral arterial occlusive disease Status: Chronic
--- NOTE | 2016-12-17 19:16 | CP.PCM.PN ---
Subjective - Date & Time of Evaluation Date of Evaluation: 12/17/16 Time of Evaluation: 19:07 - Subjective Subjective: Patient had a replacement of her Right BKA Vacuum. The wound is clean and is healing well with a good hope she will be able to walk with prosthesis. No seizures, on Topamax 50 mg BID. DM looks well controlled. She has ESRD on Hemodialysis on M,W,F. she has a good appetite and is eating eggs. Objective - Vital Signs/Intake and Output Vital Signs (last 24 hours): Temp Pulse Resp BP Pulse Ox 98.9 F 110 H 17 99/67 L 93 L 12/17/16 17:00 12/17/16 17:00 12/17/16 17:00 12/17/16 17:00 12/17/16 17:00 - Medications Medications: Current Medications Acetaminophen (Tylenol 325mg Tab) 650 mg PO Q4 PRN PRN Reason: Fever >100.4 F Last Admin: 11/21/16 00:44 Dose: 650 mg Acetaminophen (Tylenol 325mg Tab) 650 mg PO Q4 PRN PRN Reason: Pain, moderate (4-7) Last Admin: 09/16/16 22:34 Dose: 650 mg Albuterol Sulfate (Albuterol 0.083% Inhal Barbie (2.5 Mg/3 Ml) Ud) 2.5 mg INH RQ4 PRN PRN Reason: Shortness of Breath Albuterol/Ipratropium (Duoneb 3 Mg/0.5 Mg (3 Ml) Ud) 3 ml INH RQ4 PRN PRN Reason: Shortness of Breath Last Admin: 11/11/16 07:39 Dose: 3 ml Apixaban (Eliquis) 5 mg PO BID [facility] PRN Reason: Protocol Last Admin: 12/17/16 16:47 Dose: 5 mg Aspirin (Ecotrin) 81 mg PO DAILY [facility] Last Admin: 12/17/16 09:53 Dose: 81 mg Atorvastatin Calcium (Lipitor) 40 mg PO DAILY [facility] Last Admin: 12/17/16 09:53 Dose: 40 mg Benzonatate (Tessalon Perles) 200 mg PO TID PRN PRN Reason: Cough Last Admin: 11/21/16 09:06 Dose: 200 mg [facility]cium [facility] ([facility]scal) [facility] [place] [facility] [place] Last Admin: 08/08/17 16:48 Dose: 500 mg Cinacalcet (Sensipar) 30 mg PO DAILY [facility] Last Admin: 12/17/16 09:51 Dose: 30 mg Collagenase (Santyl) 1 applic TOP DAILY [facility] Last Admin: 12/17/16 09:51 Dose: 1 applic Diphenhydramine HCl (Benadryl) 25 mg PO Q6 PRN PRN Reason: Itching / Pruritus Last Admin: 12/17/16 09:53 Dose: 25 mg Docusate Sodium (Colace) 100 mg PO BID [facility] Last Admin: 12/17/16 16:47 Dose: 100 mg Epoetin Tha (Procrit) 20,000 unit IV MWF [facility] Last Admin: 12/16/16 23:29 Dose: 20,000 unit Ergocalciferol (Drisdol 50,000 Intl Units Cap) 1 cap PO WED [facility] Last Admin: 12/11/16 09:33 Dose: 1 cap Fluconazole (Diflucan) 100 mg PO DAILY [facility] Last Admin: 12/17/16 09:53 Dose: 100 mg Gabapentin (Neurontin) 300 mg PO TID [facility] Last Admin: 12/17/16 16:48 Dose: 300 mg Hydrocortisone (Anusol-Hc) 1 applic [place] BID PRN PRN Reason: Inflammation Hydromorphone HCl (Dilaudid) 1 mg IVP Q4H PRN PRN Reason: Pain, severe (8-10) Last Admin: 12/17/16 10:40 Dose: 1 mg Meropenem 500 mg/ Sodium (Chloride) 100 mls @ 100 mls/hr IVPB DAILY@0100 [facility] Last Admin: 12/17/16 03:13 Dose: 100 mls/hr Gentamicin Sulfate/Sodium Chloride (Gentamicin 100mg/100ml Ns) 100 mg in 100 mls @ 100 mls/hr IVPB MWF [facility] Last Admin: 12/16/16 11:20 Dose: 100 mls/hr Tigecycline 25 mg/ Sodium (Chloride) 100 mls @ 100 mls/hr IVPB Q12 [facility] Last Admin: 12/17/16 10:04 Dose: 100 mls/hr Sodium Chloride (Sodium Chloride 0.45%) 500 mls @ 10 mls/hr IV .Q24H [facility] Last Admin: 12/17/16 17:00 Dose: 10 mls/hr Daptomycin 650 mg/ Sodium (Chloride) 100 mls @ 100 mls/hr IVPB MWF@1800 [facility] Stop: 12/21/16 18:01 Last Admin: 12/17/16 04:39 Dose: 100 mls/hr Nystatin (Nystop Topical Powder) 1 applic TOP BID [facility] Last Admin: 12/17/16 16:48 Dose: Not Given Ondansetron HCl (Zofran Inj) 4 mg IVP Q6 PRN PRN Reason: Nausea/Vomiting Last Admin: 09/19/16 10:26 Dose: 4 mg Oxycodone HCl (Oxycodone Immediate Release Tab) 20 mg PO Q4H PRN PRN Reason: Pain, moderate (4-7) Last Admin: 12/17/16 16:46 Dose: 20 mg Pantoprazole Sodium (Protonix Ec Tab) 40 mg PO DAILY [facility] Last Admin: 12/17/16 09:55 Dose: 40 mg Repaglinide (Prandin) 0.5 mg PO TIDAC [facility] Last Admin: 12/17/16 16:49 Dose: 0.5 mg Sennosides (Senokot Tab) 25.8 mg PO HS [facility] Last Admin: 12/16/16 21:48 Dose: 25.8 mg Sevelamer HCl (Renagel) 1,600 mg PO TID [facility] Last Admin: 12/17/16 16:47 Dose: 1,600 mg Topiramate (Topamax) 50 mg PO BID [facility] Last Admin: 12/17/16 16:49 Dose: 50 mg Vitamin B Complex/Vit C/Folic Acid (Nephro-Ajay) 1 tab PO DAILY [facility] Last Admin: 12/17/16 09:51 Dose: 1 tab - Labs Labs: 12/16/16 22:15 12/16/16 22:15 PT 15.3 Seconds (9.8-13.1) H 12/02/16 13:05 INR 1.4 (0.9-1.2) H 12/02/16 13:05 APTT 37.0 Seconds (25.6-37.1) 12/02/16 13:05 Assessment and Plan (1) Diabetes Status: Chronic (2) ESRD (end stage renal disease) Status: Chronic (3) Cellulitis of leg Status: Chronic (4) Hyperlipidemia Status: Chronic (5) Back pain Status: Acute (6) Bacteremia due to Gram-negative bacteria Status: Acute (7) Diabetes mellitus type 2 with peripheral artery disease Status: Chronic (8) PVD (peripheral vascular disease) Status: Chronic (9) Osteomyelitis of right leg Status: Acute
[2016-12-18] MEDS: Meropenem 500 MG in Sodium Chloride 0.9% 100 ML IVPB SCH (00:51)
--- NOTE | 2016-12-18 02:13 | PN ---
Room 661. SUBJECTIVE: This is a 46-year-old female with recent uncontrolled type 2 diabetes now with low normal glycemic profile and also valuable meal portions as per the nursing staff as noted. Her latest glucose values have ranged from 83 to 91 and 89 mg/dL. Her latest chemistry showed BUN of 91, sodium 137, potassium 6.0, chloride 104, CO2 of 21, glucose 84, and creatinine 8.6. She also continues to have elevated liver transaminases as noted, so at this time we will actually continue only the very low dose Prandin given at 0.5 mg p.o. t.i.d. before meals as ordered. We will encourage higher protein intake at this time and even bigger meal portions as tolerated. We will follow and advice accordingly. Irene Ambrose MD
[2016-12-18] MEDS: Ergocalciferol 50,000 Intl Units Cap PO SCH (10:40)
[2016-12-18] MEDS: Multivitamin Vitamin B Complex (Nephro-Vite) Tab PO SCH (10:41)
[2016-12-18] MEDS: Pantoprazole 40 mg EC Tab PO SCH (10:42)
[2016-12-18] MEDS: TIGECYCLINE IVPB SCH ×2 (10:43→21:22)
[2016-12-18] MEDS: SODIUM CHLORIDE 0.9% IVPB SCH ×2 (10:43→21:22)
[2016-12-18] MEDS: Gentamicin 100mg/100ml NS 100 MG/100 ML BAG IVPB SCH (10:44)
--- NOTE | 2016-12-18 11:19 | CP.PCM.PN ---
Subjective - Date & Time of Evaluation Date of Evaluation: 12/18/16 Time of Evaluation: 11:18 - Subjective Subjective: No changes overnight Patient is awake and conscious Patient feels good was good appetite Scheduled for hemodialysis shortly Order was given Discussed with the dialysis nurse Sodium 138 Potassium 2.0 I can't donated 34 Ultrafiltration 2000 mL as tolerated Physical examination no changes lung is clear Heart no rubs Continue the same Objective - Vital Signs/Intake and Output Vital Signs (last 24 hours): Temp Pulse Resp BP Pulse Ox 97.7 F 120 H 18 157/85 H 95 12/18/16 07:26 12/18/16 07:26 12/18/16 07:26 12/18/16 07:26 12/18/16 07:26 - Medications Medications: Current Medications Acetaminophen (Tylenol 325mg Tab) 650 mg PO Q4 PRN PRN Reason: Fever >100.4 F Last Admin: 11/21/16 00:44 Dose: 650 mg Acetaminophen (Tylenol 325mg Tab) 650 mg PO Q4 PRN PRN Reason: Pain, moderate (4-7) Last Admin: 09/16/16 22:34 Dose: 650 mg Albuterol Sulfate (Albuterol 0.083% Inhal Barbie (2.5 Mg/3 Ml) Ud) 2.5 mg INH RQ4 PRN PRN Reason: Shortness of Breath Albuterol/Ipratropium (Duoneb 3 Mg/0.5 Mg (3 Ml) Ud) 3 ml INH RQ4 PRN PRN Reason: Shortness of Breath Last Admin: 11/11/16 07:39 Dose: 3 ml Apixaban (Eliquis) 5 mg PO BID [facility] PRN Reason: Protocol Last Admin: 12/18/16 10:40 Dose: 5 mg Aspirin (Ecotrin) 81 mg PO DAILY [facility] Last Admin: 12/18/16 10:39 Dose: 81 mg Atorvastatin Calcium (Lipitor) 40 mg PO DAILY [facility] Last Admin: 12/18/16 10:40 Dose: 40 mg Benzonatate (Tessalon Perles) 200 mg PO TID PRN PRN Reason: Cough Last Admin: 12/18/16 10:42 Dose: 200 mg Calcium Carbonate (Oscal) 500 mg PO BIDWM [facility] Last Admin: 12/18/16 10:41 Dose: 500 mg Cinacalcet (Sensipar) 30 mg PO DAILY [facility] Last Admin: 12/18/16 10:42 Dose: 30 mg Collagenase (Santyl) 1 applic TOP DAILY [facility] Last Admin: 12/17/16 09:51 Dose: 1 applic Diphenhydramine HCl (Benadryl) 25 mg PO Q6 PRN PRN Reason: Itching / Pruritus Last Admin: 12/17/16 09:53 Dose: 25 mg Docusate Sodium (Colace) 100 mg PO BID [facility] Last Admin: 12/18/16 10:38 Dose: 100 mg Epoetin Tha (Procrit) 20,000 unit IV MWF [facility] Last Admin: 12/16/16 23:29 Dose: 20,000 unit Ergocalciferol (Drisdol 50,000 Intl Units Cap) 1 cap PO WED [facility] Last Admin: 12/18/16 10:40 Dose: 1 cap Fluconazole (Diflucan) 100 mg PO DAILY [facility] Last Admin: 12/18/16 10:38 Dose: 100 mg Gabapentin (Neurontin) 300 mg PO TID [facility] Last Admin: 12/18/16 10:41 Dose: 300 mg Hydrocortisone (Anusol-Hc) 1 applic [place] BID PRN PRN Reason: Inflammation Hydromorphone HCl (Dilaudid) 1 mg IVP Q4H PRN PRN Reason: Pain, severe (8-10) Last Admin: 12/17/16 10:40 Dose: 1 mg Meropenem 500 mg/ Sodium (Chloride) 100 mls @ 100 mls/hr IVPB DAILY@0100 [facility] Last Admin: 12/18/16 00:51 Dose: 100 mls/hr Gentamicin Sulfate/Sodium Chloride (Gentamicin 100mg/100ml Ns) 100 mg in 100 mls @ 100 mls/hr IVPB MWF [facility] Last Admin: 12/18/16 10:44 Dose: 100 mls/hr Tigecycline 25 mg/ Sodium (Chloride) 100 mls @ 100 mls/hr IVPB Q12 [facility] Last Admin: 12/18/16 10:43 Dose: 100 mls/hr Sodium Chloride (Sodium Chloride 0.45%) 500 mls @ 10 mls/hr IV .Q24H [facility] Last Admin: 12/17/16 17:00 Dose: 10 mls/hr Daptomycin 650 mg/ Sodium (Chloride) 100 mls @ 100 mls/hr IVPB MWF@1800 [facility] Stop: 12/21/16 18:01 Last Admin: 12/17/16 04:39 Dose: 100 mls/hr Nystatin (Nystop Topical Powder) 1 applic TOP BID [facility] Last Admin: 12/18/16 10:41 Dose: Not Given Ondansetron HCl (Zofran Inj) 4 mg IVP Q6 PRN PRN Reason: Nausea/Vomiting Last Admin: 09/19/16 10:26 Dose: 4 mg Oxycodone HCl (Oxycodone Immediate Release Tab) 20 mg PO Q4H PRN PRN Reason: Pain, moderate (4-7) Last Admin: 12/17/16 16:46 Dose: 20 mg Pantoprazole Sodium (Protonix Ec Tab) 40 mg PO DAILY [facility] Last Admin: 12/18/16 10:42 Dose: 40 mg Repaglinide (Prandin) 0.5 mg PO TIDAC [facility] Last Admin: 12/18/16 10:42 Dose: 0.5 mg Sennosides (Senokot Tab) 25.8 mg PO HS [facility] Last Admin: 12/17/16 22:51 Dose: Not Given Sevelamer HCl (Renagel) 1,600 mg PO TID [facility] Last Admin: 12/18/16 10:42 Dose: 1,600 mg Topiramate (Topamax) 50 mg PO BID [facility] Last Admin: 12/18/16 10:43 Dose: 50 mg Vitamin B Complex/Vit C/Folic Acid (Nephro-Ajay) 1 tab PO DAILY [facility] Last Admin: 12/18/16 10:41 Dose: 1 tab - Labs Labs: 12/16/16 22:15 12/16/16 22:15 PT 15.3 Seconds (9.8-13.1) H 12/02/16 13:05 INR 1.4 (0.9-1.2) H 12/02/16 13:05 APTT 37.0 Seconds (25.6-37.1) 12/02/16 13:05 Assessment and Plan (1) ESRD (end stage renal disease) Status: Chronic (2) Cellulitis of leg Status: Chronic
--- NOTE | 2016-12-18 11:35 | CP.PCM.PN ---
Subjective - Date & Time of Evaluation Date of Evaluation: 12/18/16 Time of Evaluation: 11:31 - Subjective Subjective: Notes by Drs. Maguire and Thierry appreciated. Patients is wheeling herself down the bazan with physical therapy holding IV pole and wound vac. She is excessively tired due to previous oxycodone. So, we will discontinue this and use Tylenol for moderate pain and reserve the iv Dilaudid for pre-PT and pre-dressing change use as well as for any severe pain. For Hemodialysis soon today. Glucoses ranging from 83-94 on Prandin. Labs reviewed: Iron is a little low at 31. Transaminases OK (sl incr. SGOT). Hgb is holding at 10. No other complaints or problems. Continues on IV antibiotics and 1 po antibiotic for osteomyelitis RLE. Objective - Vital Signs/Intake and Output Vital Signs (last 24 hours): Temp Pulse Resp BP Pulse Ox 97.7 F 120 H 18 157/85 H 95 12/18/16 07:26 12/18/16 07:26 12/18/16 07:26 12/18/16 07:26 12/18/16 07:26 - Medications Medications: Current Medications Acetaminophen (Tylenol 325mg Tab) 650 mg PO Q4 PRN PRN Reason: Fever >100.4 F Last Admin: 11/21/16 00:44 Dose: 650 mg Acetaminophen (Tylenol 325mg Tab) 650 mg PO Q4 PRN PRN Reason: Pain, moderate (4-7) Last Admin: 09/16/16 22:34 Dose: 650 mg Albuterol Sulfate (Albuterol 0.083% Inhal Barbie (2.5 Mg/3 Ml) Ud) 2.5 mg INH RQ4 PRN PRN Reason: Shortness of Breath Albuterol/Ipratropium (Duoneb 3 Mg/0.5 Mg (3 Ml) Ud) 3 ml INH RQ4 PRN PRN Reason: Shortness of Breath Last Admin: 11/11/16 07:39 Dose: 3 ml Apixaban (Eliquis) 5 mg PO BID [facility] PRN Reason: Protocol Last Admin: 12/18/16 10:40 Dose: 5 mg Aspirin (Ecotrin) 81 mg PO DAILY [facility] Last Admin: 12/18/16 10:39 Dose: 81 mg Atorvastatin Calcium (Lipitor) 40 mg PO DAILY [facility] Last Admin: 12/18/16 10:40 Dose: 40 mg Benzonatate (Tessalon Perles) 200 mg PO TID PRN PRN Reason: Cough Last Admin: 12/18/16 10:42 Dose: 200 mg Calcium Carbonate (Oscal) 500 mg PO BIDWM [facility] Last Admin: 12/18/16 10:41 Dose: 500 mg Cinacalcet (Sensipar) 30 mg PO DAILY [facility] Last Admin: 12/18/16 10:42 Dose: 30 mg Collagenase (Santyl) 1 applic TOP DAILY [facility] Last Admin: 12/17/16 09:51 Dose: 1 applic Diphenhydramine HCl (Benadryl) 25 mg PO Q6 PRN PRN Reason: Itching / Pruritus Last Admin: 12/17/16 09:53 Dose: 25 mg Docusate Sodium (Colace) 100 mg PO BID [facility] Last Admin: 12/18/16 10:38 Dose: 100 mg [facility]etin [facility]a ([facility]) [facility] Last Admin: 12/16/16 23:29 Dose: 20,000 unit Ergocalciferol (Drisdol 50,000 Intl Units Cap) 1 cap PO WED [facility] Last Admin: 12/18/16 10:40 Dose: 1 cap Fluconazole (Diflucan) 100 mg PO DAILY [facility] Last Admin: 12/18/16 10:38 Dose: 100 mg Gabapentin (Neurontin) 300 mg PO TID [facility] Last Admin: 12/18/16 10:41 Dose: 300 mg Hydrocortisone (Anusol-Hc) 1 applic [place] BID PRN PRN Reason: Inflammation Hydromorphone HCl (Dilaudid) 1 mg IVP Q4H PRN PRN Reason: Pain, severe (8-10) Last Admin: 12/17/16 10:40 Dose: 1 mg Meropenem 500 mg/ Sodium (Chloride) 100 mls @ 100 mls/hr IVPB DAILY@0100 [facility] Last Admin: 12/18/16 00:51 Dose: 100 mls/hr Gentamicin Sulfate/Sodium Chloride (Gentamicin 100mg/100ml Ns) 100 mg in 100 mls @ 100 mls/hr IVPB MWF [facility] Last Admin: 12/18/16 10:44 Dose: 100 mls/hr Tigecycline 25 mg/ Sodium (Chloride) 100 mls @ 100 mls/hr IVPB Q12 [facility] Last Admin: 12/18/16 10:43 Dose: 100 mls/hr Sodium Chloride (Sodium Chloride 0.45%) 500 mls @ 10 mls/hr IV .Q24H [facility] Last Admin: 12/17/16 17:00 Dose: 10 mls/hr Daptomycin 650 mg/ Sodium (Chloride) 100 mls @ 100 mls/hr IVPB MWF@1800 [facility] Stop: 12/21/16 18:01 Last Admin: 12/17/16 04:39 Dose: 100 mls/hr Nystatin (Nystop Topical Powder) 1 applic TOP BID [facility] Last Admin: 12/18/16 10:41 Dose: Not Given Ondansetron HCl (Zofran Inj) 4 mg IVP Q6 PRN PRN Reason: Nausea/Vomiting Last Admin: 09/19/16 10:26 Dose: 4 mg Oxycodone HCl (Oxycodone Immediate Release Tab) 20 mg PO Q4H PRN PRN Reason: Pain, moderate (4-7) Last Admin: 12/17/16 16:46 Dose: 20 mg Pantoprazole Sodium (Protonix Ec Tab) 40 mg PO DAILY [facility] Last Admin: 12/18/16 10:42 Dose: 40 mg Repaglinide (Prandin) 0.5 mg PO TIDAC [facility] Last Admin: 12/18/16 10:42 Dose: 0.5 mg Sennosides (Senokot Tab) 25.8 mg PO HS [facility] Last Admin: 12/17/16 22:51 Dose: Not Given Sevelamer HCl (Renagel) 1,600 mg PO TID [facility] Last Admin: 12/18/16 10:42 Dose: 1,600 mg Topiramate (Topamax) 50 mg PO BID [facility] Last Admin: 12/18/16 10:43 Dose: 50 mg Vitamin B Complex/Vit C/Folic Acid (Nephro-Ajay) 1 tab PO DAILY [facility] Last Admin: 12/18/16 10:41 Dose: 1 tab - Labs Labs: 12/16/16 22:15 12/16/16 22:15 PT 15.3 Seconds (9.8-13.1) H 12/02/16 13:05 INR 1.4 (0.9-1.2) H 12/02/16 13:05 APTT 37.0 Seconds (25.6-37.1) 12/02/16 13:05 - Constitutional Appears: No Acute Distress - Additional Findings Additional findings: Limited exam as patient in the hallway. Physical findings appear to be unchanged. Assessment and Plan (1) Status post below knee amputation of right lower extremity Assessment & Plan: Making slow progress. Continue intensive antibiotic and wound care. Status: Acute (2) ESRD (end stage renal disease) on dialysis Status: Chronic (3) DM type 2 (diabetes mellitus, type 2) Assessment & Plan: stable. Status: Chronic (4) Coagulopathy Status: Chronic (5) Peripheral arterial occlusive disease Status: Chronic
[2016-12-18] MEDS: Epoetin Alfa 20000 UNIT/ML Inj IV SCH (18:23)
[2016-12-18] MEDS: Santyl Collagenase OINTMENT TOP SCH (18:24)
--- NOTE | 2016-12-18 20:02 | PN ---
DATE: 12/18/2016 ENDO FOLLOW UP NOTE ROOM: 661 SUBJECTIVE: This is 46-year-old female with recent uncontrolled type 2 insulin requiring diabetes, now being followed closely for metabolic management. She underwent a right below-knee amputation with subsequent severe underlying osteomyelitis and had to undergo a deep debridement procedure thereof. Her glycemic levels have remained optimal at this time with no recent blood workup noted. So for now to allow the dose for equilibration. We will keep her on the Prandin, keep her 0.5 mg p.o. b.i.d. as ordered. We will titrate incrementally as indicated to optimize metabolic control. We will follow. Irene Ambrose MD
[2016-12-19] MEDS: Meropenem 500 MG in Sodium Chloride 0.9% 100 ML IVPB SCH (00:04)
[2016-12-19] MEDS: Pantoprazole 40 mg EC Tab PO SCH (08:56)
--- NOTE | 2016-12-19 10:11 | CP.PCM.PN ---
Subjective - Date & Time of Evaluation Date of Evaluation: 12/19/16 Time of Evaluation: 10:09 - Subjective Subjective: No new event reported Patient appears to be comfortable Vital sign noted to be okay Labs reviewed and noted serum iron below normal and also iron sat in the low normal. We will consider give Venofer waiting for the serum ferritin level. Objective - Vital Signs/Intake and Output Vital Signs (last 24 hours): Temp Pulse Resp BP Pulse Ox 98.2 F 112 H 18 112/64 100 12/19/16 07:30 12/19/16 07:30 12/19/16 07:30 12/19/16 07:30 12/19/16 07:30 - Medications Medications: Current Medications Acetaminophen (Tylenol 325mg Tab) 650 mg PO Q4 PRN PRN Reason: Fever >100.4 F Last Admin: 11/21/16 00:44 Dose: 650 mg Acetaminophen (Tylenol 325mg Tab) 650 mg PO Q4 PRN PRN Reason: Pain, moderate (4-7) Last Admin: 12/19/16 06:04 Dose: 650 mg Albuterol Sulfate (Albuterol 0.083% Inhal Barbie (2.5 Mg/3 Ml) Ud) 2.5 mg INH RQ4 PRN PRN Reason: Shortness of Breath Albuterol/Ipratropium (Duoneb 3 Mg/0.5 Mg (3 Ml) Ud) 3 ml INH RQ4 PRN PRN Reason: Shortness of Breath Last Admin: 11/11/16 07:39 Dose: 3 ml Apixaban (Eliquis) 5 mg PO BID JASPER PRN Reason: Protocol Last Admin: 12/19/16 08:55 Dose: 5 mg Aspirin (Ecotrin) 81 mg PO DAILY [facility] Last Admin: 12/19/16 08:54 Dose: 81 mg Atorvastatin Calcium (Lipitor) 40 mg PO DAILY [facility] Last Admin: 12/19/16 08:55 Dose: 40 mg Benzonatate (Tessalon Perles) 200 mg PO TID PRN PRN Reason: Cough Last Admin: 12/18/16 10:42 Dose: 200 mg Calcium Carbonate (Oscal) 500 mg PO BIDWM [facility] Last Admin: 12/18/16 18:23 Dose: 500 mg Cinacalcet (Sensipar) 30 mg PO DAILY [facility] Last Admin: 12/19/16 08:56 Dose: 30 mg Collagenase (Santyl) 1 applic TOP DAILY [facility] Last Admin: 12/18/16 18:24 Dose: 1 applic Diphenhydramine HCl (Benadryl) 25 mg PO Q6 PRN PRN Reason: Itching / Pruritus Last Admin: 12/17/16 09:53 Dose: 25 mg Docusate Sodium (Colace) 100 mg PO BID [facility] Last Admin: 12/19/16 08:53 Dose: 100 mg Epoetin Tha (Procrit) 20,000 unit IV MWF [facility] Last Admin: 12/18/16 18:23 Dose: 20,000 unit Ergocalciferol (Drisdol 50,000 Intl Units Cap) 1 cap PO WED [facility] Last Admin: 12/18/16 10:40 Dose: 1 cap Fluconazole (Diflucan) 100 mg PO DAILY [facility] Last Admin: 12/19/16 08:53 Dose: 100 mg Gabapentin (Neurontin) 300 mg PO TID [facility] Last Admin: 12/19/16 08:55 Dose: 300 mg Hydrocortisone (Anusol-Hc) 1 applic MD BID PRN PRN Reason: Inflammation Hydromorphone HCl (Dilaudid) 1 mg IVP Q4H PRN PRN Reason: Pain, severe (8-10) Last Admin: 12/18/16 12:18 Dose: 1 mg Meropenem 500 mg/ Sodium (Chloride) 100 mls @ 100 mls/hr IVPB DAILY@0100 [facility] Last Admin: 12/19/16 00:04 Dose: 100 mls/hr Gentamicin Sulfate/Sodium Chloride (Gentamicin 100mg/100ml Ns) 100 mg in 100 mls @ 100 mls/hr IVPB MWF [facility] Last Admin: 12/18/16 10:44 Dose: 100 mls/hr Tigecycline 25 mg/ Sodium (Chloride) 100 mls @ 100 mls/hr IVPB Q12 [facility] Last Admin: 12/18/16 21:22 Dose: 100 mls/hr Sodium Chloride (Sodium Chloride 0.45%) 500 mls @ 10 mls/hr IV .Q24H [facility] Last Admin: 12/17/16 17:00 Dose: 10 mls/hr Daptomycin 650 mg/ Sodium (Chloride) 100 mls @ 100 mls/hr IVPB MWF@1800 [facility] Stop: 12/21/16 18:01 Last Admin: 12/18/16 20:13 Dose: 100 mls/hr Nystatin (Nystop Topical Powder) 1 applic TOP BID [facility] Last Admin: 12/18/16 18:22 Dose: Not Given Ondansetron HCl (Zofran Inj) 4 mg IVP Q6 PRN PRN Reason: Nausea/Vomiting Last Admin: 09/19/16 10:26 Dose: 4 mg Pantoprazole Sodium (Protonix Ec Tab) 40 mg PO DAILY [facility] Last Admin: 12/19/16 08:56 Dose: 40 mg Repaglinide (Prandin) 0.5 mg PO TIDAC [facility] Last Admin: 12/19/16 06:51 Dose: 0.5 mg Sennosides (Senokot Tab) 25.8 mg PO HS [facility] Last Admin: 12/18/16 21:25 Dose: 25.8 mg Sevelamer HCl (Renagel) 1,600 mg PO TID [facility] Last Admin: 12/19/16 08:56 Dose: 1,600 mg Topiramate (Topamax) 50 mg PO BID [facility] Last Admin: 12/19/16 08:57 Dose: 50 mg Vitamin B Complex/Vit C/Folic Acid (Nephro-Ajay) 1 tab PO DAILY [facility] Last Admin: 12/18/16 10:41 Dose: 1 tab - Labs Labs: 12/16/16 22:15 12/16/16 22:15 PT 15.3 Seconds (9.8-13.1) H 12/02/16 13:05 INR 1.4 (0.9-1.2) H 12/02/16 13:05 APTT 37.0 Seconds (25.6-37.1) 12/02/16 13:05 Assessment and Plan (1) ESRD (end stage renal disease) Status: Chronic (2) Cellulitis of leg Status: Chronic
[2016-12-19] MEDS: TIGECYCLINE IVPB SCH ×2 (11:00→21:10)
[2016-12-19] MEDS: SODIUM CHLORIDE 0.9% IVPB SCH ×2 (11:00→21:10)
[2016-12-19] MEDS: Multivitamin Vitamin B Complex (Nephro-Vite) Tab PO SCH (13:21)
--- NOTE | 2016-12-19 14:13 | PN ---
LOCATION: Room #661 SUBJECTIVE: This is a 46-year-old female with recent uncontrolled type 2 diabetes now has been taken off all insulin therapy and is currently doing very well with just very low dose oral hypoglycemic drug therapy as given. She underwent a recent right below knee amputation for severe underlying osteomyelitis with ongoing IV antibiotics as given. Her latest glucose levels have ranged from 96 to 137 mg/dL. It was 84 yesterday as noted. The latest chemistries shows a BUN of 91, sodium 137, potassium 6.0, chloride 104, CO2 of 21, glucose 84, creatinine 8.6, so at this time we will continue the same low dose Prandin given as 0.5 mg p.o. t.i.d. before meals as ordered. We will obtain serum chemistries and supplement accordingly as needed. We will follow with you. Irene Ambrose MD
--- NOTE | 2016-12-19 16:49 | CP.PCM.PN ---
Subjective - Date & Time of Evaluation Date of Evaluation: 12/19/16 Time of Evaluation: 16:40 - Subjective Subjective: Shiny area on left patella as a result of pressure from the left BK prosthesis used for standing therapy. Patient has been using old left BK prosthesis because her mother was afraid the new one would get lost. Mother has been asked to bring in the new prosthesis. Also we will start using "skin prep" tid (as recommended by wound care nurses) to left patella and will not do any standing exercises until the problem resolves. Wound vac continues to R BK site. No leakage. Minimal drainage. Santyl and moist saline daily dressings to right patella continue. Dr. Lemon has just informed me that the company that manufactures Tigacycline is stopping production. Unfortunately this is one of the only two antibiotics that we currently know to be effective against the resistant Klebsiella that has infected the patient's right leg. We will continue to use this antibiotic along with the other iv antibiotics and the [address] Rangel is looking into this further. Glucoses are running 84-137 on very low dose Prandin. This is good. No coagulation or seizure problems. As per Dr. Guadarrama's note, we await ferritin levels so as to decide if patient needs iron infusion to help with anemia. Objective - Vital Signs/Intake and Output Vital Signs (last 24 hours): Temp Pulse Resp BP Pulse Ox 97.7 F 104 H 18 108/56 L 95 12/19/16 16:03 12/19/16 16:03 12/19/16 16:03 12/19/16 16:03 12/19/16 16:03 - Medications Medications: Current Medications Acetaminophen (Tylenol 325mg Tab) 650 mg PO Q4 PRN PRN Reason: Fever >100.4 F Last Admin: 11/21/16 00:44 Dose: 650 mg Acetaminophen (Tylenol 325mg Tab) 650 mg PO Q4 PRN PRN Reason: Pain, moderate (4-7) Last Admin: 12/19/16 06:04 Dose: 650 mg Albuterol Sulfate (Albuterol 0.083% Inhal Barbie (2.5 Mg/3 Ml) Ud) 2.5 mg INH RQ4 PRN PRN Reason: Shortness of Breath Albuterol/Ipratropium (Duoneb 3 Mg/0.5 Mg (3 Ml) Ud) 3 ml INH RQ4 PRN PRN Reason: Shortness of Breath Last Admin: 11/11/16 07:39 Dose: 3 ml Apixaban (Eliquis) 5 mg PO BID JASPER PRN Reason: Protocol Last Admin: 12/19/16 08:55 Dose: 5 mg Aspirin (Ecotrin) 81 mg PO DAILY [facility] Last Admin: 12/19/16 08:54 Dose: 81 mg Atorvastatin Calcium (Lipitor) 40 mg PO DAILY [facility] Last Admin: 12/19/16 08:55 Dose: 40 mg Benzonatate (Tessalon Perles) 200 mg PO TID PRN PRN Reason: Cough Last Admin: 12/18/16 10:42 Dose: 200 mg Calcium Carbonate (Oscal) 500 mg PO BIDWM [facility] Last Admin: 12/19/16 13:21 Dose: 500 mg Cinacalcet (Sensipar) 30 mg PO DAILY [facility] Last Admin: 12/19/16 08:56 Dose: 30 mg Collagenase (Santyl) 1 applic TOP DAILY [facility] Last Admin: 12/18/16 18:24 Dose: 1 applic Diphenhydramine HCl (Benadryl) 25 mg PO Q6 PRN PRN Reason: Itching / Pruritus Last Admin: 12/17/16 09:53 Dose: 25 mg Docusate Sodium (Colace) 100 mg PO BID [facility] Last Admin: 12/19/16 08:53 Dose: 100 mg Epoetin Tha (Procrit) 20,000 unit IV MWF [facility] Last Admin: 12/18/16 18:23 Dose: 20,000 unit Ergocalciferol (Drisdol 50,000 Intl Units Cap) 1 cap PO WED [facility] Last Admin: 12/18/16 10:40 Dose: 1 cap Fluconazole (Diflucan) 100 mg PO DAILY [facility] Last Admin: 12/19/16 08:53 Dose: 100 mg Gabapentin (Neurontin) 300 mg PO TID [facility] Last Admin: 12/19/16 13:21 Dose: 300 mg Hydrocortisone (Anusol-Hc) 1 applic NE BID PRN PRN Reason: Inflammation Hydromorphone HCl (Dilaudid) 1 mg IVP Q4H PRN PRN Reason: Pain, severe (8-10) Last Admin: 12/19/16 14:39 Dose: 1 mg Meropenem 500 mg/ Sodium (Chloride) 100 mls @ 100 mls/hr IVPB DAILY@0100 [facility] Last Admin: 12/19/16 00:04 Dose: 100 mls/hr Gentamicin Sulfate/Sodium Chloride (Gentamicin 100mg/100ml Ns) 100 mg in 100 mls @ 100 mls/hr IVPB MWF [facility] Last Admin: 12/18/16 10:44 Dose: 100 mls/hr Tigecycline 25 mg/ Sodium (Chloride) 100 mls @ 100 mls/hr IVPB Q12 [facility] Last Admin: 12/19/16 11:00 Dose: 100 mls/hr Sodium Chloride (Sodium Chloride 0.45%) 500 mls @ 10 mls/hr IV .Q24H [facility] Last Admin: 12/17/16 17:00 Dose: 10 mls/hr Daptomycin 650 mg/ Sodium (Chloride) 100 mls @ 100 mls/hr IVPB MWF@1800 [facility] Stop: 12/21/16 18:01 Last Admin: 12/18/16 20:13 Dose: 100 mls/hr Nystatin (Nystop Topical Powder) 1 applic TOP BID [facility] Last Admin: 12/19/16 13:21 Dose: Not Given Ondansetron HCl (Zofran Inj) 4 mg IVP Q6 PRN PRN Reason: Nausea/Vomiting Last Admin: 09/19/16 10:26 Dose: 4 mg Pantoprazole Sodium (Protonix Ec Tab) 40 mg PO DAILY [facility] Last Admin: 12/19/16 08:56 Dose: 40 mg Repaglinide (Prandin) 0.5 mg PO TIDAC [facility] Last Admin: 12/19/16 13:22 Dose: 0.5 mg Sennosides (Senokot Tab) 25.8 mg PO HS [facility] Last Admin: 12/18/16 21:25 Dose: 25.8 mg Sevelamer HCl (Renagel) 1,600 mg PO TID [facility] Last Admin: 12/19/16 13:22 Dose: 1,600 mg Topiramate (Topamax) 50 mg PO BID [facility] Last Admin: 12/19/16 08:57 Dose: 50 mg Vitamin B Complex/Vit C/Folic Acid (Nephro-Ajay) 1 tab PO DAILY [facility] Last Admin: 12/19/16 13:21 Dose: 1 tab - Labs Labs: 12/16/16 22:15 12/16/16 22:15 PT 15.3 Seconds (9.8-13.1) H 12/02/16 13:05 INR 1.4 (0.9-1.2) H 12/02/16 13:05 APTT 37.0 Seconds (25.6-37.1) 12/02/16 13:05 - Constitutional Appears: No Acute Distress - Head Exam Head Exam: NORMAL INSPECTION - Eye Exam Eye Exam: Normal appearance - ENT Exam ENT Exam: Mucous Membranes Moist - Neck Exam Neck Exam: Normal Inspection Additional comments: R subclavian Permacath intact. - Respiratory Exam Respiratory Exam: Clear to Ausculation Bilateral, NORMAL BREATHING PATTERN - Cardiovascular Exam Cardiovascular Exam: REGULAR RHYTHM - Extremities Exam Additional comments: See Subjective section for LE's. L femoral PICC line intact. Hands warm. - Back Exam Back Exam: NORMAL INSPECTION - Neurological Exam Neurological Exam: Alert, CN II-XII Intact, Oriented x3 - Psychiatric Exam Psychiatric exam: Normal Affect, Normal Mood - Skin Skin Exam: Dry, Normal Color, Warm Assessment and Plan (1) Status post below knee amputation of right lower extremity Assessment & Plan: Making slow progress. Loss of effective antibiotic could be a real concern. Holding on standing exercises, but continues on PT for truncal and upper arm strengthening. Continue current wound care to RLE and treat L patellar with skin prep tid. 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 She already receives erythropoietin during hemodialysis. Status: Acute
[2016-12-19] MEDS: Santyl Collagenase OINTMENT TOP SCH (18:00)
[2016-12-20] MEDS: Meropenem 500 MG in Sodium Chloride 0.9% 100 ML IVPB SCH (00:01)
[2016-12-20] MEDS: Gentamicin 100mg/100ml NS 100 MG/100 ML BAG IVPB SCH (08:41)
[2016-12-20] MEDS: Multivitamin Vitamin B Complex (Nephro-Vite) Tab PO SCH (08:43)
[2016-12-20] MEDS: Pantoprazole 40 mg EC Tab PO SCH (08:44)
[2016-12-20] MEDS: Santyl Collagenase OINTMENT TOP SCH (08:45)
[2016-12-20] MEDS: SODIUM CHLORIDE 0.9% IVPB SCH ×2 (11:15→22:35)
[2016-12-20] MEDS: TIGECYCLINE IVPB SCH ×2 (11:15→22:35)
--- NOTE | 2016-12-20 14:00 | CP.PCM.PN ---
Subjective - Date & Time of Evaluation Date of Evaluation: 12/20/16 Time of Evaluation: 13:58 - Subjective Subjective: Patient is awake And conscious The diet is good No new events reported Serum ferritin level 574 Therefore we will give Venofer 100 mg IV piggyback with each hemodialysis for about 4 or 5 doses starting today. Hemodialysis about to start Order was given No change in the dialysis orders see my previous order regarding electrolyte composition Physical examination no significant changes Diagnosis and differential diagnosis is about the same including end stage renal disease with the IV antibiotics and primary team treatment Objective - Vital Signs/Intake and Output Vital Signs (last 24 hours): Temp Pulse Resp BP Pulse Ox 97.8 F 111 H 18 140/70 96 12/20/16 07:40 12/20/16 07:40 12/20/16 07:40 12/20/16 07:40 12/20/16 07:40 - Medications Medications: Current Medications Acetaminophen (Tylenol 325mg Tab) 650 mg PO Q4 PRN PRN Reason: Fever >100.4 F Last Admin: 11/21/16 00:44 Dose: 650 mg Acetaminophen (Tylenol 325mg Tab) 650 mg PO Q4 PRN PRN Reason: Pain, moderate (4-7) Last Admin: 12/20/16 07:00 Dose: 650 mg Albuterol Sulfate (Albuterol 0.083% Inhal Barbie (2.5 Mg/3 Ml) Ud) 2.5 mg INH RQ4 PRN PRN Reason: Shortness of Breath Albuterol/Ipratropium (Duoneb 3 Mg/0.5 Mg (3 Ml) Ud) 3 ml INH RQ4 PRN PRN Reason: Shortness of Breath Last Admin: 11/11/16 07:39 Dose: 3 ml Apixaban (Eliquis) 5 mg PO BID JASPER PRN Reason: Protocol Last Admin: 12/20/16 08:42 Dose: 5 mg Aspirin (Ecotrin) 81 mg PO DAILY [facility] Last Admin: 12/20/16 08:44 Dose: 81 mg Atorvastatin Calcium (Lipitor) 40 mg PO DAILY [facility] Last Admin: 12/20/16 08:42 Dose: 40 mg Benzonatate (Tessalon Perles) 200 mg PO TID PRN PRN Reason: Cough Last Admin: 12/18/16 10:42 Dose: 200 mg Calcium Carbonate (Oscal) 500 mg PO BIDWM [facility] Last Admin: 12/20/16 08:42 Dose: 500 mg Cinacalcet (Sensipar) 30 mg PO DAILY [facility] Last Admin: 12/20/16 08:43 Dose: 30 mg Collagenase (Santyl) 1 applic TOP DAILY [facility] Last Admin: 12/20/16 08:45 Dose: 1 applic Diphenhydramine HCl (Benadryl) 25 mg PO Q6 PRN PRN Reason: Itching / Pruritus Last Admin: 12/17/16 09:53 Dose: 25 mg Docusate Sodium (Colace) 100 mg PO BID [facility] Last Admin: 12/20/16 08:42 Dose: 100 mg Epoetin Tha (Procrit) 20,000 unit IV [facility] Last Admin: 12/18/16 18:23 Dose: 20,000 unit Ergocalciferol (Drisdol 50,000 Intl Units Cap) 1 cap PO WED [facility] Last Admin: 12/18/16 10:40 Dose: 1 cap Fluconazole (Diflucan) 100 mg PO DAILY [facility] Last Admin: 12/20/16 08:43 Dose: 100 mg Gabapentin (Neurontin) 300 mg PO TID [facility] Last Admin: 12/20/16 12:15 Dose: 300 mg Hydrocortisone (Anusol-Hc) 1 applic [place] BID PRN PRN Reason: Inflammation Hydromorphone HCl (Dilaudid) 1 mg IVP Q4H PRN PRN Reason: Pain, severe (8-10) Last Admin: 12/20/16 11:29 Dose: 1 mg Meropenem 500 mg/ Sodium (Chloride) 100 mls @ 100 mls/hr IVPB DAILY@0100 [facility] Last Admin: 12/20/16 00:01 Dose: 100 mls/hr Gentamicin Sulfate/Sodium Chloride (Gentamicin 100mg/100ml Ns) 100 mg in 100 mls @ 100 mls/hr IVPB MWF [facility] Last Admin: 12/20/16 08:41 Dose: 100 mls/hr Tigecycline 25 mg/ Sodium (Chloride) 100 mls @ 100 mls/hr IVPB Q12 [facility] Last Admin: 12/20/16 11:15 Dose: 100 mls/hr Sodium Chloride (Sodium Chloride 0.45%) 500 mls @ 10 mls/hr IV .Q24H [facility] Last Admin: 12/17/16 17:00 Dose: 10 mls/hr Daptomycin 650 mg/ Sodium (Chloride) 100 mls @ 100 mls/hr IVPB MWF@1800 [facility] Stop: 12/21/16 18:01 Last Admin: 12/18/16 20:13 Dose: 100 mls/hr Iron Sucrose 100 mg/ Sodium (Chloride) 105 mls @ 105 mls/hr IVPB DAILY [facility] Nystatin (Nystop Topical Powder) 1 applic TOP BID [facility] Last Admin: 12/20/16 08:43 Dose: Not Given Ondansetron HCl (Zofran Inj) 4 mg IVP Q6 PRN PRN Reason: Nausea/Vomiting Last Admin: 09/19/16 10:26 Dose: 4 mg Pantoprazole Sodium (Protonix Ec Tab) 40 mg PO DAILY [facility] Last Admin: 12/20/16 08:44 Dose: 40 mg Repaglinide (Prandin) 0.5 mg PO TIDAC [facility] Last Admin: 12/20/16 12:14 Dose: 0.5 mg Sennosides (Senokot Tab) 25.8 mg PO HS [facility] Last Admin: 12/19/16 21:04 Dose: 25.8 mg Sevelamer HCl (Renagel) 1,600 mg PO TID [facility] Last Admin: 12/20/16 12:15 Dose: 1,600 mg Topiramate (Topamax) 50 mg PO BID [facility] Last Admin: 12/20/16 08:43 Dose: 50 mg Vitamin B Complex/Vit C/Folic Acid (Nephro-Ajay) 1 tab PO DAILY [facility] Last Admin: 12/20/16 08:43 Dose: 1 tab - Labs Labs: 12/16/16 22:15 12/16/16 22:15 PT 15.3 Seconds (9.8-13.1) H 12/02/16 13:05 INR 1.4 (0.9-1.2) H 12/02/16 13:05 APTT 37.0 Seconds (25.6-37.1) 12/02/16 13:05 Assessment and Plan (1) ESRD (end stage renal disease) Status: Chronic (2) Cellulitis of leg Status: Chronic
--- NOTE | 2016-12-20 15:22 | CP.PCM.PN ---
Subjective - Date & Time of Evaluation Date of Evaluation: 12/20/16 Time of Evaluation: 15:16 - Subjective Subjective: Patient was outside in wheelchair where she propelled herself for a short distance. She seems very tired now - is awaiting hemodialysis. Dr. Guadarrama's note appreciated. He will give Venofer with the next 4-5 hemodialysis treatment since the Ferritin level is 574. Patient was examined with Nurse Jesu. The left patellar and tibial tubercle areas are intact but slightly shiny. Skin prep to continue tid, and patient will not use prosthesis. Right BK wound vac is intact at 125mm Hg negative pressure. There is minimal drainage and no leakage. The right patellar area still has fibrotic tissue, which was scrubbed by Nurse Jesu. Then Santyl and moist saline dressing was applied. This area does appear to be healing slowly with good granulation tissue aound the periphery. Dr. Mccormack plans to change the wound vac on 12/22/16. Patient continues on 4 iv antibiotics and po fluconazole. Nice glucose numbers. Dr. Ambrose's note appreciated. We will continue Prandin 0.5mg tid. No seizures and no clotting problems. Objective - Vital Signs/Intake and Output Vital Signs (last 24 hours): Temp Pulse Resp BP Pulse Ox 97.8 F 111 H 18 140/70 96 12/20/16 07:40 12/20/16 07:40 12/20/16 07:40 12/20/16 07:40 12/20/16 07:40 - Medications Medications: Current Medications Acetaminophen (Tylenol 325mg Tab) 650 mg PO Q4 PRN PRN Reason: Fever >100.4 F Last Admin: 11/21/16 00:44 Dose: 650 mg Acetaminophen (Tylenol 325mg Tab) 650 mg PO Q4 PRN PRN Reason: Pain, moderate (4-7) Last Admin: 12/20/16 07:00 Dose: 650 mg Albuterol Sulfate (Albuterol 0.083% Inhal Barbie (2.5 Mg/3 Ml) Ud) 2.5 mg INH RQ4 PRN PRN Reason: Shortness of Breath Albuterol/Ipratropium (Duoneb 3 Mg/0.5 Mg (3 Ml) Ud) 3 ml INH RQ4 PRN PRN Reason: Shortness of Breath Last Admin: 11/11/16 07:39 Dose: 3 ml Apixaban (Eliquis) 5 mg PO BID [facility] PRN Reason: Protocol Last Admin: 12/20/16 08:42 Dose: 5 mg Aspirin (Ecotrin) 81 mg PO DAILY [facility] Last Admin: 12/20/16 08:44 Dose: 81 mg Atorvastatin Calcium (Lipitor) 40 mg PO DAILY [facility] Last Admin: 12/20/16 08:42 Dose: 40 mg Benzonatate (Tessalon Perles) 200 mg PO TID PRN PRN Reason: Cough Last Admin: 12/18/16 10:42 Dose: 200 mg Calcium Carbonate (Oscal) 500 mg PO BIDWM [facility] Last Admin: 12/20/16 08:42 Dose: 500 mg Cinacalcet (Sensipar) 30 mg PO DAILY [facility] Last Admin: 12/20/16 08:43 Dose: 30 mg Collagenase (Santyl) 1 applic TOP DAILY [facility] Last Admin: 12/20/16 08:45 Dose: 1 applic Diphenhydramine HCl (Benadryl) 25 mg PO Q6 PRN PRN Reason: Itching / Pruritus Last Admin: 12/17/16 09:53 Dose: 25 mg Docusate Sodium (Colace) 100 mg PO BID [facility] Last Admin: 12/20/16 08:42 Dose: 100 mg Epoetin Tha (Procrit) 20,000 unit IV MWF [facility] Last Admin: 12/18/16 18:23 Dose: 20,000 unit Ergocalciferol (Drisdol 50,000 Intl Units Cap) 1 cap PO WED [facility] Last Admin: 12/18/16 10:40 Dose: 1 cap Fluconazole (Diflucan) 100 mg PO DAILY [facility] Last Admin: 12/20/16 08:43 Dose: 100 mg Gabapentin (Neurontin) 300 mg PO TID [facility] Last Admin: 12/20/16 12:15 Dose: 300 mg Hydrocortisone (Anusol-Hc) 1 applic [place] BID PRN PRN Reason: Inflammation Hydromorphone HCl (Dilaudid) 1 mg IVP Q4H PRN PRN Reason: Pain, severe (8-10) Last Admin: 12/20/16 11:29 Dose: 1 mg Meropenem 500 mg/ Sodium (Chloride) 100 mls @ 100 mls/hr IVPB DAILY@0100 [facility] Last Admin: 12/20/16 00:01 Dose: 100 mls/hr Gentamicin Sulfate/Sodium Chloride (Gentamicin 100mg/100ml Ns) 100 mg in 100 mls @ 100 mls/hr IVPB MWF [facility] Last Admin: 12/20/16 08:41 Dose: 100 mls/hr Tigecycline 25 mg/ Sodium (Chloride) 100 mls @ 100 mls/hr IVPB Q12 [facility] Last Admin: 12/20/16 11:15 Dose: 100 mls/hr Sodium Chloride (Sodium Chloride 0.45%) 500 mls @ 10 mls/hr IV .Q24H [facility] Last Admin: 12/17/16 17:00 Dose: 10 mls/hr Daptomycin 650 mg/ Sodium (Chloride) 100 mls @ 100 mls/hr IVPB MWF@1800 [facility] Stop: 12/21/16 18:01 Last Admin: 12/18/16 20:13 Dose: 100 mls/hr Iron Sucrose 100 mg/ Sodium (Chloride) 105 mls @ 105 mls/hr [facility] Stop: 12/30/16 09:59 Nystatin (Nystop Topical Powder) 1 applic TOP BID [facility] Last Admin: 12/20/16 08:43 Dose: Not Given Ondansetron HCl (Zofran Inj) 4 mg IVP Q6 PRN PRN Reason: Nausea/Vomiting Last Admin: 09/19/16 10:26 Dose: 4 mg Pantoprazole Sodium (Protonix Ec Tab) 40 mg PO DAILY [facility] Last Admin: 12/20/16 08:44 Dose: 40 mg Repaglinide (Prandin) 0.5 mg PO TIDAC [facility] Last Admin: 12/20/16 12:14 Dose: 0.5 mg Sennosides (Senokot Tab) 25.8 mg PO HS [facility] Last Admin: 12/19/16 21:04 Dose: 25.8 mg Sevelamer HCl (Renagel) 1,600 mg PO TID [facility] Last Admin: 12/20/16 12:15 Dose: 1,600 mg Topiramate (Topamax) 50 mg PO BID [facility] Last Admin: 12/20/16 08:43 Dose: 50 mg Vitamin B Complex/Vit C/Folic Acid (Nephro-Ajay) 1 tab PO DAILY [facility] Last Admin: 12/20/16 08:43 Dose: 1 tab - Labs Labs: 08/07/17 22:15 12/16/16 22:15 PT 15.3 Seconds (9.8-13.1) H 12/02/16 13:05 INR 1.4 (0.9-1.2) H 12/02/16 13:05 APTT 37.0 Seconds (25.6-37.1) 12/02/16 13:05 - Constitutional Appears: No Acute Distress - Head Exam Head Exam: NORMAL INSPECTION - Eye Exam Eye Exam: Normal appearance - ENT Exam ENT Exam: Mucous Membranes Moist - Neck Exam Neck Exam: Normal Inspection - Respiratory Exam Respiratory Exam: Clear to Ausculation Bilateral - Extremities Exam Additional comments: See subjective. L femoral PICC line is intact. Hands warm and without lesions. - Back Exam Back Exam: CVA tenderness (L) - Neurological Exam Neurological Exam: Alert, Awake, Oriented x3 - Psychiatric Exam Psychiatric exam: Normal Affect, Normal Mood - Skin Skin Exam: Normal Color, Warm Assessment and Plan (1) Status post below knee amputation of right lower extremity Assessment & Plan: Continues to make progress. Continue current wound care and antibiotics. 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
[2016-12-20] MEDS: Epoetin Alfa 20000 UNIT/ML Inj IV SCH (18:21)
--- NOTE | 2016-12-20 19:09 | PN ---
SUBJECTIVE: This is a 46-year-old female with recent uncontrolled type 2 insulin requiring diabetes now taken off all insulin therapy at this time with improved glycemic profile as noted thereof. Her oral intake is variable as per the nursing staff with occasional suboptimal meal portions as noted. Her glucose levels have ranged from 67 to 91 and 108 mg/dL. Her latest chemistry shows a BUN of 91, sodium 137, potassium 6.0, chloride 104, CO2 of 21, glucose 84, creatinine 8.6, so at this time we will continue the low-dose oral hypoglycemic drug therapy with Prandin given as 0.5 mg p.o. t.i.d. before meals as ordered. We will titrate incrementally as needed to optimize metabolic control. We will follow with you. Irene Ambrose MD
[2016-12-21] MEDS: Meropenem 500 MG in Sodium Chloride 0.9% 100 ML IVPB SCH (01:08)
[2016-12-21] MEDS: TIGECYCLINE IVPB SCH ×2 (09:22→20:57)
[2016-12-21] MEDS: SODIUM CHLORIDE 0.9% IVPB SCH ×2 (09:22→20:57)
[2016-12-21] MEDS: Multivitamin Vitamin B Complex (Nephro-Vite) Tab PO SCH (09:58)
[2016-12-21] MEDS: Pantoprazole 40 mg EC Tab PO SCH (10:08)
[2016-12-21] MEDS: Santyl Collagenase OINTMENT TOP SCH (10:08)
--- NOTE | 2016-12-21 13:45 | PN ---
DATE: ENDO FOLLOWUP NOTE In room 661. SUBJECTIVE: This is a 46-year-old female with recent uncontrolled type 2 diabetes who underwent a right below knee amputation for severe underlying osteomyelitis and is currently receiving ongoing IV antibiotic management as given. Her glycemic levels are low normal related to the very valuable and suboptimal meal portions as per the nursing staff. Her glucose levels today have ranged from 67 to 75 and 91 mg/dL. So, at this time, we will encourage the patient to increase meal portions specially higher protein intake and we will continue the low-dose oral hypoglycemic drug therapy as ordered. We will continue the Prandin given as 0.5 mg p.o. t.i.d. with meals as ordered. We will obtain serum chemistries and supplement accordingly as needed. We will follow with you. Irene Ambrose MD
--- NOTE | 2016-12-21 16:51 | CP.PCM.PN ---
Subjective - Date & Time of Evaluation Date of Evaluation: 12/21/16 Time of Evaluation: 16:47 - Subjective Subjective: Patient has been up in wheelchair and spending time at nurse's station. No fevers, cough, dyspnea. About to eat supper. Glucoses running 67 to 134 - on Prandin 0.[address] Ambrose's note appreciated. No other new labs. Will order CBC and CMP for 12/23 to be drawn by dialysis nurse. Right Bk wound vac in place with no leakage. Continues on 4 iv antibiotics and po fluconazole. I spoke with Dr. Lemon about the problem the computer program is giving me with renewing Daptomycin, so he will look into this. Next dose is not due until Friday, 12/23. No clotting problems and no seizures. Objective - Vital Signs/Intake and Output Vital Signs (last 24 hours): Temp Pulse Resp BP Pulse Ox 98.0 F 106 H 18 133/83 95 12/21/16 16:08 12/21/16 16:08 12/21/16 16:08 12/21/16 16:08 12/21/16 16:08 - Medications Medications: Current Medications Acetaminophen (Tylenol 325mg Tab) 650 mg PO Q4 PRN PRN Reason: Fever >100.4 F Last Admin: 11/21/16 00:44 Dose: 650 mg Acetaminophen (Tylenol 325mg Tab) 650 mg PO Q4 PRN PRN Reason: Pain, moderate (4-7) Last Admin: 12/21/16 09:55 Dose: 650 mg Albuterol Sulfate (Albuterol 0.083% Inhal Barbie (2.5 Mg/3 Ml) Ud) 2.5 mg INH RQ4 PRN PRN Reason: Shortness of Breath Albuterol/Ipratropium (Duoneb 3 Mg/0.5 Mg (3 Ml) Ud) 3 ml INH RQ4 PRN PRN Reason: Shortness of Breath Last Admin: 11/11/16 07:39 Dose: 3 ml Apixaban (Eliquis) 5 mg PO BID [facility] PRN Reason: Protocol Last Admin: 12/21/16 09:59 Dose: 5 mg Aspirin (Ecotrin) 81 mg PO DAILY [facility] Last Admin: 12/21/16 10:01 Dose: 81 mg Atorvastatin Calcium (Lipitor) 40 mg PO DAILY [facility] Last Admin: 12/21/16 10:00 Dose: 40 mg Benzonatate (Tessalon Perles) 200 mg PO TID PRN PRN Reason: Cough Last Admin: 12/18/16 10:42 Dose: 200 mg Calcium Carbonate (Oscal) 500 mg PO BIDWM [facility] Last Admin: 12/21/16 09:58 Dose: 500 mg Cinacalcet (Sensipar) 30 mg PO DAILY [facility] Last Admin: 12/21/16 10:00 Dose: 30 mg Collagenase (Santyl) 1 applic TOP DAILY [facility] Last Admin: 12/21/16 10:08 Dose: 1 applic Diphenhydramine HCl (Benadryl) 25 mg PO Q6 PRN PRN Reason: Itching / Pruritus Last Admin: 12/17/16 09:53 Dose: 25 mg Docusate Sodium (Colace) 100 mg PO BID [facility] Last Admin: 12/21/16 09:59 Dose: 100 mg Epoetin Tha (Procrit) 20,000 unit IV [facility] Last Admin: 12/20/16 18:21 Dose: 20,000 unit Ergocalciferol (Drisdol 50,000 Intl Units Cap) 1 cap PO WED [facility] Last Admin: 12/18/16 10:40 Dose: 1 cap Fluconazole (Diflucan) 100 mg PO DAILY [facility] Last Admin: 12/21/16 09:58 Dose: 100 mg Gabapentin (Neurontin) 300 mg PO TID [facility] Last Admin: 12/21/16 13:21 Dose: 300 mg Hydrocortisone (Anusol-Hc) 1 applic [place] BID PRN PRN Reason: Inflammation Hydromorphone HCl (Dilaudid) 1 mg IVP Q4H PRN PRN Reason: Pain, severe (8-10) Last Admin: 12/20/16 17:28 Dose: 1 mg Meropenem 500 mg/ Sodium (Chloride) 100 mls @ 100 mls/hr IVPB DAILY@0100 [facility] Last Admin: 12/21/16 01:08 Dose: 100 mls/hr Gentamicin Sulfate/Sodium Chloride (Gentamicin 100mg/100ml Ns) 100 mg in 100 mls @ 100 mls/hr IVPB MWF [facility] Last Admin: 12/20/16 08:41 Dose: 100 mls/hr Tigecycline 25 mg/ Sodium (Chloride) 100 mls @ 100 mls/hr IVPB Q12 [facility] Last Admin: 12/21/16 09:22 Dose: 100 mls/hr Sodium Chloride (Sodium Chloride 0.45%) 500 mls @ 10 mls/hr IV .Q24H [facility] Last Admin: 12/20/16 15:31 Dose: Not Given Daptomycin 650 mg/ Sodium (Chloride) 100 mls @ 100 mls/hr IVPB MWF@1800 [facility] Stop: 12/21/16 18:01 Last Admin: 12/20/16 18:21 Dose: 100 mls/hr Iron Sucrose 100 mg/ Sodium (Chloride) 105 mls @ 105 mls/hr IVPB MWF [facility] Stop: 12/30/16 09:59 Last Admin: 12/20/16 18:20 Dose: 105 mls/hr Nystatin (Nystop Topical Powder) 1 applic TOP BID [facility] Last Admin: 12/21/16 09:59 Dose: Not Given Ondansetron HCl (Zofran Inj) 4 mg IVP Q6 PRN PRN Reason: Nausea/Vomiting Last Admin: 09/19/16 10:26 Dose: 4 mg Pantoprazole Sodium (Protonix Ec Tab) 40 mg PO DAILY [facility] Last Admin: 12/21/16 10:08 Dose: 40 mg Repaglinide (Prandin) 0.5 mg PO TIDAC [facility] Last Admin: 12/21/16 13:21 Dose: 0.5 mg Sennosides (Senokot Tab) 25.8 mg PO HS [facility] Last Admin: 12/20/16 23:05 Dose: 25.8 mg Sevelamer HCl (Renagel) 1,600 mg PO TID [facility] Last Admin: 12/21/16 13:20 Dose: 1,600 mg Topiramate (Topamax) 50 mg PO BID [facility] Last Admin: 12/21/16 09:58 Dose: 50 mg Vitamin B Complex/Vit C/Folic Acid (Nephro-Ajay) 1 tab PO DAILY [facility] Last Admin: 12/21/16 09:58 Dose: 1 tab - Labs Labs: 12/16/16 22:15 12/16/16 22:15 PT 15.3 Seconds (9.8-13.1) H 12/02/16 13:05 INR 1.4 (0.9-1.2) H 12/02/16 13:05 APTT 37.0 Seconds (25.6-37.1) 12/02/16 13:05 - Constitutional Appears: No Acute Distress - Head Exam Head Exam: NORMAL INSPECTION - Eye Exam Eye Exam: Normal appearance - ENT Exam ENT Exam: Mucous Membranes Moist - Neck Exam Neck Exam: Normal Inspection Additional comments: R subclavian Permacath intact. No neck nodes or masses. No thyromegaly. - Respiratory Exam Respiratory Exam: Clear to Ausculation Bilateral, NORMAL BREATHING PATTERN - Cardiovascular Exam Cardiovascular Exam: REGULAR RHYTHM, +S1, +S2 - GI/Abdominal Exam GI & Abdominal Exam: Soft - Extremities Exam Additional comments: Dressings and wound vac intact RLE. L knee and anterior tibial uberosity with no open lesions. L femoral vein PICC line intact. Hands ok. - Back Exam Back Exam: NORMAL INSPECTION - Neurological Exam Neurological Exam: Alert, Oriented x3 - Psychiatric Exam Psychiatric exam: Normal Affect, Normal Mood - Skin Skin Exam: Dry, Normal Color, Warm Assessment and Plan (1) Status post below knee amputation of right lower extremity Assessment & Plan: Continues to make progress. Continue same medications and treatments. Status: Acute (2) ESRD (end stage renal disease) on dialysis Status: Chronic (3) DM type 2 (diabetes mellitus, type 2) Assessment & Plan: Well-conrolled. 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 Status: Acute
--- NOTE | 2016-12-21 18:07 | CP.PCM.PN ---
Subjective - Date & Time of Evaluation Date of Evaluation: 12/21/16 Time of Evaluation: 18:06 - Subjective Subjective: Follow up Nephrology Consultation Note Assessment/Plan: End stage renal disease on hemodialysis (MWF) via permacath: Will plan for dialysis friday. No Acute need today. continue with Nephrovite 1 tab/day. Anemia: PRBC as needed. On MARTHA as Epogen 20,000 with HD. last Hb 10 Hyperphosphatemia: continue with current meds as renagel 1600 TID, last phos 4.8 Secondary hyperparathyroidism with Vit D Deficiency: continue with sensipar 30 mg/day. Last PTH level 423. recheck with next lab Hypertension controlled: BP mostly on low side Glycemic control, Dialysis consistent diet Further work up/management as per primary team. 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 Dose meds/antibiotics for ESRD status. Avoid fleets enema/magnesium based laxatives. Thanks for allowing me to participate in care of your patient. Will follow patient with you. Please call if any Qs Dr Hernan Andino Office: [phone] Subjective: Noted events overnight. Denies chest pain, palpitation, shortness of breath. 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 obese Vitals reviewed and noted as below Lungs: Normal respiratory rate/effort. Breath sounds bilateral equal and clear Heart: Normal rate. s1s2 normal. No rub or gallop. Extremities: s/p Rt BKA, hx of left BKA. Neurological: Patient is alert, awake and oriented to person, place and time. No focal deficit. Strength bilateral appropriate and equal Skin: Warm and dry. Normal turgor. No rash. Palpitation: Normal elasticity for age Abdomen: Abdomen is soft. Bowel sounds +. There is no abdominal tenderness, no guarding/rigidity or organomegaly. she is obese : kidney or bladder not palpable Access: permacath Labs/imaging reviewed. Past medical history, past surgical history, family history, social history, allergy reviewed Objective - Vital Signs/Intake and Output Vital Signs (last 24 hours): Temp Pulse Resp BP Pulse Ox 98.0 F 106 H 18 133/83 95 12/21/16 16:08 12/21/16 16:08 12/21/16 16:08 12/21/16 16:08 12/21/16 16:08 - Medications Medications: Current Medications Acetaminophen (Tylenol 325mg Tab) 650 mg PO Q4 PRN PRN Reason: Fever >100.4 F Last Admin: 11/21/16 00:44 Dose: 650 mg Acetaminophen (Tylenol 325mg Tab) 650 mg PO Q4 PRN PRN Reason: Pain, moderate (4-7) Last Admin: 12/21/16 17:41 Dose: 650 mg Albuterol Sulfate (Albuterol 0.083% Inhal Barbie (2.5 Mg/3 Ml) Ud) 2.5 mg INH RQ4 PRN PRN Reason: Shortness of Breath Albuterol/Ipratropium (Duoneb 3 Mg/0.5 Mg (3 Ml) Ud) 3 ml INH RQ4 PRN PRN Reason: Shortness of Breath Last Admin: 11/11/16 07:39 Dose: 3 ml Apixaban (Eliquis) 5 mg PO BID [facility] PRN Reason: Protocol Last Admin: 12/21/16 17:33 Dose: 5 mg Aspirin (Ecotrin) 81 mg PO DAILY [facility] Last Admin: 12/21/16 10:01 Dose: 81 mg Atorvastatin Calcium (Lipitor) 40 mg PO DAILY [facility] Last Admin: 12/21/16 10:00 Dose: 40 mg Benzonatate (Tessalon Perles) 200 mg PO TID PRN PRN Reason: Cough Last Admin: 12/18/16 10:42 Dose: 200 mg Calcium Carbonate (Oscal) 500 mg PO BIDWM [facility] Last Admin: 12/21/16 17:33 Dose: 500 mg Cinacalcet (Sensipar) 30 mg PO DAILY [facility] Last Admin: 12/21/16 10:00 Dose: 30 mg Collagenase (Santyl) 1 applic TOP DAILY [facility] Last Admin: 12/21/16 10:08 Dose: 1 applic Diphenhydramine HCl (Benadryl) 25 mg PO Q6 PRN PRN Reason: Itching / Pruritus Last Admin: 12/17/16 09:53 Dose: 25 mg Docusate Sodium (Colace) 100 mg PO BID [facility] Last Admin: 12/21/16 17:41 Dose: 100 mg Epoetin Tha (Procrit) 20,000 unit IV [facility] Last Admin: 12/20/16 18:21 Dose: 20,000 unit Ergocalciferol (Drisdol 50,000 Intl Units Cap) 1 cap PO WED [facility] Last Admin: 12/18/16 10:40 Dose: 1 cap Fluconazole (Diflucan) 100 mg PO DAILY [facility] Last Admin: 12/21/16 09:58 Dose: 100 mg Gabapentin (Neurontin) 300 mg PO TID [facility] Last Admin: 12/21/16 17:33 Dose: 300 mg Hydrocortisone (Anusol-Hc) 1 applic [place] BID PRN PRN Reason: Inflammation Hydromorphone HCl (Dilaudid) 1 mg IVP Q4H PRN PRN Reason: Pain, severe (8-10) Last Admin: 12/20/16 17:28 Dose: 1 mg Meropenem 500 mg/ Sodium (Chloride) 100 mls @ 100 mls/hr IVPB DAILY@0100 [facility] Last Admin: 12/21/16 01:08 Dose: 100 mls/hr Gentamicin Sulfate/Sodium Chloride (Gentamicin 100mg/100ml Ns) 100 mg in 100 mls @ 100 mls/hr IVPB [facility] Last Admin: 12/20/16 08:41 Dose: 100 mls/hr Tigecycline 25 mg/ Sodium (Chloride) 100 mls @ 100 mls/hr IVPB Q12 [facility] Last Admin: 12/21/16 09:22 Dose: 100 mls/hr Sodium Chloride (Sodium Chloride 0.45%) 500 mls @ 10 mls/hr IV .Q24H [facility] Last Admin: 12/21/16 17:34 Dose: Not Given Iron Sucrose 100 mg/ Sodium (Chloride) 105 mls @ 105 mls/hr IVPB [facility] Stop: 12/30/16 09:59 Last Admin: 12/20/16 18:20 Dose: 105 mls/hr Nystatin (Nystop Topical Powder) 1 applic TOP BID [facility] Last Admin: 12/21/16 17:34 Dose: Not Given Ondansetron HCl (Zofran Inj) 4 mg IVP Q6 PRN PRN Reason: Nausea/Vomiting Last Admin: 09/19/16 10:26 Dose: 4 mg Pantoprazole Sodium (Protonix Ec Tab) 40 mg PO DAILY [facility] Last Admin: 12/21/16 10:08 Dose: 40 mg Repaglinide (Prandin) 0.5 mg PO TIDAC [facility] Last Admin: 12/21/16 17:33 Dose: 0.5 mg Sennosides (Senokot Tab) 25.8 mg PO HS [facility] Last Admin: 12/20/16 23:05 Dose: 25.8 mg Sevelamer HCl (Renagel) 1,600 mg PO TID [facility] Last Admin: 12/21/16 17:33 Dose: 1,600 mg Topiramate (Topamax) 50 mg PO BID [facility] Last Admin: 12/21/16 17:34 Dose: 50 mg Vitamin B Complex/Vit C/Folic Acid (Nephro-Ajay) 1 tab PO DAILY [facility] Last Admin: 12/21/16 09:58 Dose: 1 tab - Labs Labs: 12/16/16 22:15 12/16/16 22:15 PT 15.3 Seconds (9.8-13.1) H 12/02/16 13:05 INR 1.4 (0.9-1.2) H 12/02/16 13:05 APTT 37.0 Seconds (25.6-37.1) 12/02/16 13:05
[2016-12-22] MEDS: Meropenem 500 MG in Sodium Chloride 0.9% 100 ML IVPB SCH (00:04)
[2016-12-22] MEDS: Multivitamin Vitamin B Complex (Nephro-Vite) Tab PO SCH (08:26)
[2016-12-22] MEDS: Pantoprazole 40 mg EC Tab PO SCH (08:27)
[2016-12-22] MEDS: Santyl Collagenase OINTMENT TOP SCH (08:36)
[2016-12-22] MEDS: TIGECYCLINE IVPB SCH ×2 (08:50→20:24)
[2016-12-22] MEDS: SODIUM CHLORIDE 0.9% IVPB SCH ×2 (08:50→20:24)
--- NOTE | 2016-12-22 12:17 | PN ---
ENDO FOLLOWUP NOTE DATE: 12/22/2016 SUBJECTIVE: This is a 46-year-old very nourished. The patient is uncontrolled type 2 diabetes, currently trying to be on past days of insulin, now just very low dose oral hypoglycemic drug therapy as taken. Her oral intake is quite variable as per the nursing staff, and for the last two days has had normal glycemic levels as noted. Her glucose levels have ranged from 67, 75, and 134 mg/dL. So at this time, we will continue her low dose over hypoglycemic drug therapy with Prandin given as 0.5 mg t.i.d. with meals as ordered. We will titrate incrementally as indicated to optimize metabolic control too. We will follow with you. Irene Ambrose MD
--- NOTE | 2016-12-22 14:03 | CP.PCM.PN ---
Subjective - Date & Time of Evaluation Date of Evaluation: 12/22/16 Time of Evaluation: 14:00 - Subjective Subjective: Dr. Andino's nephrology note appreciated. I have reviewed orders and reordered daptomycin 650mg iv q MWF after hemodialysis. I also ordered CBC, CMP, and CPK. Glucoses ranging 75-134. Patient has no complaints. Exam is unchanged. Will contiue present care. Dr. Mccormack will change the wound vac tomorrow. Objective - Vital Signs/Intake and Output Vital Signs (last 24 hours): Temp Pulse Resp BP Pulse Ox 98 F 111 H 20 171/69 H 99 12/22/16 08:54 12/22/16 08:54 12/22/16 08:54 12/22/16 08:54 12/22/16 08:54 - Medications Medications: Current Medications Acetaminophen (Tylenol 325mg Tab) 650 mg PO Q4 PRN PRN Reason: Fever >100.4 F Last Admin: 11/21/16 00:44 Dose: 650 mg Acetaminophen (Tylenol 325mg Tab) 650 mg PO Q4 PRN PRN Reason: Pain, moderate (4-7) Last Admin: 12/21/16 21:56 Dose: 650 mg Albuterol Sulfate (Albuterol 0.083% Inhal Barbie (2.5 Mg/3 Ml) Ud) 2.5 mg INH RQ4 PRN PRN Reason: Shortness of Breath Albuterol/Ipratropium (Duoneb 3 Mg/0.5 Mg (3 Ml) Ud) 3 ml INH RQ4 PRN PRN Reason: Shortness of Breath Last Admin: 11/11/16 07:39 Dose: 3 ml Apixaban (Eliquis) 5 mg PO BID [facility] PRN Reason: Protocol Last Admin: 12/22/16 08:27 Dose: 5 mg Aspirin (Ecotrin) 81 mg PO DAILY [facility] Last Admin: 12/22/16 08:29 Dose: 81 mg Atorvastatin Calcium (Lipitor) 40 mg PO DAILY [facility] Last Admin: 12/22/16 08:26 Dose: 40 mg Benzonatate (Tessalon Perles) 200 mg PO TID PRN PRN Reason: Cough Last Admin: 12/18/16 10:42 Dose: 200 mg Calcium Carbonate (Oscal) 500 mg PO BIDWM [facility] Last Admin: 12/22/16 08:27 Dose: 500 mg Cinacalcet (Sensipar) 30 mg PO DAILY [facility] Last Admin: 12/22/16 08:33 Dose: 30 mg Collagenase (Santyl) 1 applic TOP DAILY [facility] Last Admin: 12/22/16 08:36 Dose: 1 applic Diphenhydramine HCl (Benadryl) 25 mg PO Q6 PRN PRN Reason: Itching / Pruritus Last Admin: 12/17/16 09:53 Dose: 25 mg Docusate Sodium (Colace) 100 mg PO BID [facility] Last Admin: 12/22/16 08:26 Dose: 100 mg Epoetin Tha (Procrit) 20,000 unit IV [facility] Last Admin: 12/20/16 18:21 Dose: 20,000 unit Ergocalciferol (Drisdol 50,000 Intl Units Cap) 1 cap PO WED [facility] Last Admin: 12/18/16 10:40 Dose: 1 cap Fluconazole (Diflucan) 100 mg PO DAILY [facility] Last Admin: 12/22/16 08:25 Dose: 100 mg Gabapentin (Neurontin) 300 mg PO TID [facility] Last Admin: 12/22/16 12:23 Dose: 300 mg Hydrocortisone (Anusol-Hc) 1 applic MA BID PRN PRN Reason: Inflammation Hydromorphone HCl (Dilaudid) 1 mg IVP Q4H PRN PRN Reason: Pain, severe (8-10) Last Admin: 12/20/16 17:28 Dose: 1 mg Meropenem 500 mg/ Sodium (Chloride) 100 mls @ 100 mls/hr IVPB DAILY@0100 [facility] Last Admin: 12/22/16 00:04 Dose: 100 mls/hr Gentamicin Sulfate/Sodium Chloride (Gentamicin 100mg/100ml Ns) 100 mg in 100 mls @ 100 mls/hr IVPB MWF [facility] Last Admin: 12/20/16 08:41 Dose: 100 mls/hr Tigecycline 25 mg/ Sodium (Chloride) 100 mls @ 100 mls/hr IVPB Q12 [facility] Last Admin: 12/22/16 08:50 Dose: 100 mls/hr Sodium Chloride (Sodium Chloride 0.45%) 500 mls @ 10 mls/hr IV .Q24H [facility] Last Admin: 12/21/16 17:34 Dose: Not Given Iron Sucrose 100 mg/ Sodium (Chloride) 105 mls @ 105 mls/hr IVPB MWF [facility] Stop: 12/30/16 09:59 Last Admin: 12/20/16 18:20 Dose: 105 mls/hr Daptomycin 650 mg/ Sodium (Chloride) 100 mls @ 100 mls/hr IVPB F [facility] Stop: 01/15/17 09:59 Nystatin (Nystop Topical Powder) 1 applic TOP BID [facility] Last Admin: 12/22/16 08:31 Dose: Not Given Ondansetron HCl (Zofran Inj) 4 mg IVP Q6 PRN PRN Reason: Nausea/Vomiting Last Admin: 09/19/16 10:26 Dose: 4 mg Pantoprazole Sodium (Protonix Ec Tab) 40 mg PO DAILY [facility] Last Admin: 12/22/16 08:27 Dose: 40 mg Repaglinide (Prandin) 0.5 mg PO TIDAC [facility] Last Admin: 12/22/16 11:31 Dose: 0.5 mg Sennosides (Senokot Tab) 25.8 mg PO HS [facility] Last Admin: 12/21/16 21:57 Dose: 25.8 mg Sevelamer HCl (Renagel) 1,600 mg PO TID [facility] Last Admin: 12/22/16 12:23 Dose: 1,600 mg Topiramate (Topamax) 50 mg PO BID [facility] Last Admin: 12/22/16 08:25 Dose: 50 mg Vitamin B Complex/Vit C/Folic Acid (Nephro-Ajay) 1 tab PO DAILY [facility] Last Admin: 12/22/16 08:26 Dose: 1 tab - Labs Labs: 12/16/16 22:15 12/16/16 22:15 PT 15.3 Seconds (9.8-13.1) H 12/02/16 13:05 INR 1.4 (0.9-1.2) H 12/02/16 13:05 APTT 37.0 Seconds (25.6-37.1) 12/02/16 13:05 Assessment and Plan (1) Status post below knee amputation of right lower extremity Status: Acute (2) ESRD (end stage renal disease) on dialysis Status: Chronic (3) DM type 2 (diabetes mellitus, type 2) Status: Chronic (4) Coagulopathy Status: Chronic (5) Peripheral arterial occlusive disease Status: Chronic (6) 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
--- NOTE | 2016-12-22 17:07 | CP.PCM.PN ---
Subjective - Date & Time of Evaluation Date of Evaluation: 12/22/16 Time of Evaluation: 17:07 - Subjective Subjective: Follow up Nephrology Consultation Note Assessment/Plan: End stage renal disease on hemodialysis (MWF) via permacath: Will plan for dialysis friday. No Acute need today. continue with Nephrovite 1 tab/day. Anemia: PRBC as needed. On MARTHA as Epogen 20,000 with HD. last Hb 10 Hyperphosphatemia: continue with current meds as renagel 1600 TID, last phos 4.8 Secondary hyperparathyroidism with Vit D Deficiency: continue with sensipar 30 mg/day. Last PTH level 423. recheck with next lab Hypertension controlled: BP mostly on low side Glycemic control, Dialysis consistent diet Further work up/management as per primary team. 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 Dose meds/antibiotics for ESRD status. Avoid fleets enema/magnesium based laxatives. Thanks for allowing me to participate in care of your patient. Will follow patient with you. Please call if any Qs Dr Hernan Andino Office: [phone] Subjective: Noted events overnight. Denies chest pain, palpitation, shortness of breath. 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 obese Vitals reviewed and noted as below Lungs: Normal respiratory rate/effort. Breath sounds bilateral equal and clear Heart: Normal rate. s1s2 normal. No rub or gallop. Extremities: s/p Rt BKA, hx of left BKA. Neurological: Patient is alert, awake and oriented to person, place and time. No focal deficit. Strength bilateral appropriate and equal Skin: Warm and dry. Normal turgor. No rash. Palpitation: Normal elasticity for age Abdomen: Abdomen is soft. Bowel sounds +. There is no abdominal tenderness, no guarding/rigidity or organomegaly. she is obese : kidney or bladder not palpable Access: permacath Labs/imaging reviewed. Past medical history, past surgical history, family history, social history, allergy reviewed Objective - Vital Signs/Intake and Output Vital Signs (last 24 hours): Temp Pulse Resp BP Pulse Ox 98 F 111 H 20 171/69 H 99 12/22/16 08:54 12/22/16 08:54 12/22/16 08:54 12/22/16 08:54 12/22/16 08:54 - Medications Medications: Current Medications Acetaminophen (Tylenol 325mg Tab) 650 mg PO Q4 PRN PRN Reason: Fever >100.4 F Last Admin: 11/21/16 00:44 Dose: 650 mg Acetaminophen (Tylenol 325mg Tab) 650 mg PO Q4 PRN PRN Reason: Pain, moderate (4-7) Last Admin: 12/21/16 21:56 Dose: 650 mg Albuterol Sulfate (Albuterol 0.083% Inhal Barbie (2.5 Mg/3 Ml) Ud) 2.5 mg INH RQ4 PRN PRN Reason: Shortness of Breath Albuterol/Ipratropium (Duoneb 3 Mg/0.5 Mg (3 Ml) Ud) 3 ml INH RQ4 PRN PRN Reason: Shortness of Breath Last Admin: 11/11/16 07:39 Dose: 3 ml Apixaban (Eliquis) 5 mg PO BID [facility] PRN Reason: Protocol Last Admin: 12/22/16 08:27 Dose: 5 mg Aspirin (Ecotrin) 81 mg PO DAILY [facility] Last Admin: 12/22/16 08:29 Dose: 81 mg Atorvastatin Calcium (Lipitor) 40 mg PO DAILY [facility] Last Admin: 12/22/16 08:26 Dose: 40 mg Benzonatate (Tessalon Perles) 200 mg PO TID PRN PRN Reason: Cough Last Admin: 12/18/16 10:42 Dose: 200 mg Calcium Carbonate (Oscal) 500 mg PO BIDWM [facility] Last Admin: 12/22/16 08:27 Dose: 500 mg Cinacalcet (Sensipar) 30 mg PO DAILY [facility] Last Admin: 12/22/16 08:33 Dose: 30 mg Collagenase (Santyl) 1 applic TOP DAILY [facility] Last Admin: 12/22/16 08:36 Dose: 1 applic Diphenhydramine HCl (Benadryl) 25 mg PO Q6 PRN PRN Reason: Itching / Pruritus Last Admin: 12/17/16 09:53 Dose: 25 mg Docusate Sodium (Colace) 100 mg PO BID [facility] Last Admin: 12/22/16 08:26 Dose: 100 mg Epoetin Tha (Procrit) [facility] Last Admin: 12/20/16 18:21 Dose: 20,000 unit Ergocalciferol (Drisdol 50,000 Intl Units Cap) 1 cap PO WED [facility] Last Admin: 12/18/16 10:40 Dose: 1 cap Fluconazole (Diflucan) 100 mg PO DAILY [facility] Last Admin: 12/22/16 08:25 Dose: 100 mg Gabapentin (Neurontin) 300 mg PO TID [facility] Last Admin: 12/22/16 12:23 Dose: 300 mg Hydrocortisone (Anusol-Hc) 1 applic [place] BID PRN PRN Reason: Inflammation Hydromorphone HCl (Dilaudid) 1 mg IVP Q4H PRN PRN Reason: Pain, severe (8-10) Last Admin: 12/20/16 17:28 Dose: 1 mg Meropenem 500 mg/ Sodium (Chloride) 100 mls @ 100 mls/hr IVPB DAILY@0100 [facility] Last Admin: 12/22/16 00:04 Dose: 100 mls/hr Gentamicin Sulfate/Sodium Chloride (Gentamicin 100mg/100ml Ns) 100 mg in 100 mls @ 100 mls/hr IVPB [facility] Last Admin: 12/20/16 08:41 Dose: 100 mls/hr Tigecycline 25 mg/ Sodium (Chloride) 100 mls @ 100 mls/hr IVPB Q12 [facility] Last Admin: 12/22/16 08:50 Dose: 100 mls/hr Sodium Chloride (Sodium Chloride 0.45%) 500 mls @ 10 mls/hr IV .Q24H [facility] Last Admin: 12/21/16 17:34 Dose: Not Given Iron Sucrose 100 mg/ Sodium (Chloride) 105 mls @ 105 mls/hr IVPB [facility] Stop: 12/30/16 09:59 Last Admin: 12/20/16 18:20 Dose: 105 mls/hr Daptomycin 650 mg/ Sodium (Chloride) 100 mls @ 100 mls/hr IVPB [facility] Stop: 01/15/17 09:59 Nystatin (Nystop Topical Powder) 1 applic TOP BID [facility] Last Admin: 12/22/16 08:31 Dose: Not Given Ondansetron HCl (Zofran Inj) 4 mg IVP Q6 PRN PRN Reason: Nausea/Vomiting Last Admin: 09/19/16 10:26 Dose: 4 mg Pantoprazole Sodium (Protonix Ec Tab) 40 mg PO DAILY [facility] Last Admin: 12/22/16 08:27 Dose: 40 mg Repaglinide (Prandin) 0.5 mg PO TIDAC [facility] Last Admin: 12/22/16 11:31 Dose: 0.5 mg Sennosides (Senokot Tab) 25.8 mg PO HS [facility] Last Admin: 12/21/16 21:57 Dose: 25.8 mg Sevelamer HCl (Renagel) 1,600 mg PO TID [facility] Last Admin: 12/22/16 12:23 Dose: 1,600 mg Topiramate (Topamax) 50 mg PO BID [facility] Last Admin: 12/22/16 08:25 Dose: 50 mg Vitamin B Complex/Vit C/Folic Acid (Nephro-Ajay) 1 tab PO DAILY [facility] Last Admin: 12/22/16 08:26 Dose: 1 tab - Labs Labs: 12/16/16 22:15 12/16/16 22:15 PT 15.3 Seconds (9.8-13.1) H 12/02/16 13:05 INR 1.4 (0.9-1.2) H 12/02/16 13:05 APTT 37.0 Seconds (25.6-37.1) 12/02/16 13:05
[2016-12-23] MEDS: Meropenem 500 MG in Sodium Chloride 0.9% 100 ML IVPB SCH (00:08)
--- NOTE | 2016-12-23 07:23 | CP.PCM.PN ---
<[place] - Last Filed: 12/23/16 07:20> Subjective - Date & Time of Evaluation Date of Evaluation: 12/23/16 Time of Evaluation: 07:20 - Subjective Subjective: Surgery for Dr. Easton Braun s&yahir NOLAN. Denies F/C/N/V/D/CP/SOB. WOund vac in place Objective - Vital Signs/Intake and Output Vital Signs (last 24 hours): Temp Pulse Resp BP Pulse Ox 98.2 F 78 20 147/88 98 12/22/16 23:59 12/22/16 23:59 12/22/16 23:59 12/22/16 23:59 12/22/16 23:59 - Medications Medications: Current Medications Acetaminophen (Tylenol 325mg Tab) 650 mg PO Q4 PRN PRN Reason: Fever >100.4 F Last Admin: 11/21/16 00:44 Dose: 650 mg Acetaminophen (Tylenol 325mg Tab) 650 mg PO Q4 PRN PRN Reason: Pain, moderate (4-7) Last Admin: 12/23/16 00:19 Dose: 650 mg Albuterol Sulfate (Albuterol 0.083% Inhal Barbie (2.5 Mg/3 Ml) Ud) 2.5 mg INH RQ4 PRN PRN Reason: Shortness of Breath Albuterol/Ipratropium (Duoneb 3 Mg/0.5 Mg (3 Ml) Ud) 3 ml INH RQ4 PRN PRN Reason: Shortness of Breath Last Admin: 11/11/16 07:39 Dose: 3 ml Apixaban (Eliquis) 5 mg PO BID [facility] PRN Reason: Protocol Last Admin: 12/22/16 17:01 Dose: 5 mg Aspirin (Ecotrin) 81 mg PO DAILY [facility] Last Admin: 12/22/16 08:29 Dose: 81 mg Atorvastatin Calcium (Lipitor) 40 mg PO DAILY [facility] Last Admin: 12/22/16 08:26 Dose: 40 mg Benzonatate (Tessalon Perles) 200 mg PO TID PRN PRN Reason: Cough Last Admin: 12/18/16 10:42 Dose: 200 mg Calcium Carbonate (Oscal) 500 mg PO BIDWM [facility] Last Admin: 12/22/16 17:03 Dose: 500 mg Cinacalcet (Sensipar) 30 mg PO DAILY [facility] Last Admin: 12/22/16 08:33 Dose: 30 mg Collagenase (Santyl) 1 applic TOP DAILY [facility] Last Admin: 12/22/16 08:36 Dose: 1 applic Diphenhydramine HCl (Benadryl) 25 mg PO Q6 PRN PRN Reason: Itching / Pruritus Last Admin: 12/17/16 09:53 Dose: 25 mg Docusate Sodium (Colace) 100 mg PO BID [facility] Last Admin: 12/22/16 17:01 Dose: 100 mg Epoetin Tha (Procrit) 20,000 unit IV [facility] Last Admin: 12/20/16 18:21 Dose: 20,000 unit Ergocalciferol (Drisdol 50,000 Intl Units Cap) 1 cap PO WED [facility] Last Admin: 12/18/16 10:40 Dose: 1 cap Fluconazole (Diflucan) 100 mg PO DAILY [facility] Last Admin: 12/22/16 08:25 Dose: 100 mg Gabapentin (Neurontin) 300 mg PO TID [facility] Last Admin: 12/22/16 17:01 Dose: 300 mg Hydrocortisone (Anusol-Hc) 1 applic MD BID PRN PRN Reason: Inflammation Hydromorphone HCl (Dilaudid) 1 mg IVP Q4H PRN PRN Reason: Pain, severe (8-10) Last Admin: 12/22/16 17:18 Dose: 1 mg Meropenem 500 mg/ Sodium (Chloride) 100 mls @ 100 mls/hr IVPB DAILY@0100 [facility] Last Admin: 12/23/16 00:08 Dose: 100 mls/hr Gentamicin Sulfate/Sodium Chloride (Gentamicin 100mg/100ml Ns) 100 mg in 100 mls @ 100 mls/hr IVPB [facility] Last Admin: 12/20/16 08:41 Dose: 100 mls/hr Tigecycline 25 mg/ Sodium (Chloride) 100 mls @ 100 mls/hr IVPB Q12 [facility] Last Admin: 12/22/16 20:24 Dose: 100 mls/hr Sodium Chloride (Sodium Chloride 0.45%) 500 mls @ 10 mls/hr IV .Q24H [facility] Last Admin: 12/22/16 17:24 Dose: 10 mls/hr Iron Sucrose 100 mg/ Sodium (Chloride) 105 mls @ 105 mls/hr IVPB [facility] Stop: 12/30/16 09:59 Last Admin: 12/20/16 18:20 Dose: 105 mls/hr Daptomycin 650 mg/ Sodium (Chloride) 100 mls @ 100 mls/hr IVPB [facility] Stop: 01/15/17 09:59 Nystatin (Nystop Topical Powder) 1 applic TOP BID [facility] Last Admin: 12/22/16 17:02 Dose: Not Given Ondansetron HCl (Zofran Inj) 4 mg IVP Q6 PRN PRN Reason: Nausea/Vomiting Last Admin: 09/19/16 10:26 Dose: 4 mg Pantoprazole Sodium (Protonix Ec Tab) 40 mg PO DAILY [facility] Last Admin: 12/22/16 08:27 Dose: 40 mg Repaglinide (Prandin) 0.5 mg PO TIDAC [facility] Last Admin: 12/22/16 17:03 Dose: 0.5 mg Sennosides (Senokot Tab) 25.8 mg PO HS [facility] Last Admin: 12/23/16 00:20 Dose: 25.8 mg Sevelamer HCl (Renagel) 1,600 mg PO TID [facility] Last Admin: 12/22/16 17:04 Dose: 1,600 mg Topiramate (Topamax) 50 mg PO BID [facility] Last Admin: 12/22/16 17:05 Dose: 50 mg Vitamin B Complex/Vit C/Folic Acid (Nephro-Ajay) 1 tab PO DAILY [facility] Last Admin: 12/22/16 08:26 Dose: 1 tab - Labs Labs: 12/16/16 22:15 12/16/16 22:15 PT 15.3 Seconds (9.8-13.1) H 12/02/16 13:05 INR 1.4 (0.9-1.2) H 12/02/16 13:05 APTT 37.0 Seconds (25.6-37.1) 12/02/16 13:05 - Constitutional Appears: No Acute Distress - Head Exam Head Exam: ATRAUMATIC, NORMAL INSPECTION, NORMOCEPHALIC - Eye Exam Eye Exam: EOMI, Normal appearance, PERRL Pupil Exam: NORMAL ACCOMODATION, PERRL - ENT Exam ENT Exam: Mucous Membranes Moist, Normal Exam - Neck Exam Neck Exam: Full ROM, Normal Inspection. absent: Lymphadenopathy - Respiratory Exam Respiratory Exam: Clear to Ausculation Bilateral, NORMAL BREATHING PATTERN - Cardiovascular Exam Cardiovascular Exam: REGULAR RHYTHM, +S1, +S2. absent: Murmur - GI/Abdominal Exam GI & Abdominal Exam: Soft, Normal Bowel Sounds. absent: Tenderness - Exam Exam: NORMAL INSPECTION - Extremities Exam Extremities Exam: absent: Joint Swelling, Normal Inspection, Tenderness Additional comments: B/L BKA. Wound vac in place. No leak. - Back Exam Back Exam: NORMAL INSPECTION - Neurological Exam Neurological Exam: Alert, Awake, CN II-XII Intact, Oriented x3 - Psychiatric Exam Psychiatric exam: Normal Affect, Normal Mood - Skin Skin Exam: Warm. 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 Continue current wound care. Change VAC at bedside in 3-4 days. Continue Santyl to right knee patellar wound. Will DW Dr. Mccormack <Raffy Mccormack - Last Filed: 12/24/16 13:49> Objective - Vital Signs/Intake and Output Vital Signs (last 24 hours): Temp Pulse Resp BP Pulse Ox 97.4 F L 99 H 20 144/82 97 12/24/16 07:21 12/24/16 07:21 12/24/16 07:21 12/24/16 07:21 12/24/16 07:21 - Medications Medications: Current Medications Acetaminophen (Tylenol 325mg Tab) 650 mg PO Q4 PRN PRN Reason: Fever >100.4 F Last Admin: 11/21/16 00:44 Dose: 650 mg Acetaminophen (Tylenol 325mg Tab) 650 mg PO Q4 PRN PRN Reason: Pain, moderate (4-7) Last Admin: 12/23/16 22:37 Dose: 650 mg Albuterol Sulfate (Albuterol 0.083% Inhal Barbie (2.5 Mg/3 Ml) Ud) 2.5 mg INH RQ4 PRN PRN Reason: Shortness of Breath Albuterol/Ipratropium (Duoneb 3 Mg/0.5 Mg (3 Ml) Ud) 3 ml INH RQ4 PRN PRN Reason: Shortness of Breath Last Admin: 11/11/16 07:39 Dose: 3 ml Apixaban (Eliquis) 5 mg PO BID [facility] PRN Reason: Protocol Last Admin: 12/24/16 10:11 Dose: 5 mg Aspirin (Ecotrin) 81 mg PO DAILY [facility] Last Admin: 12/24/16 10:27 Dose: 81 mg Atorvastatin Calcium (Lipitor) 40 mg PO DAILY [facility] Last Admin: 12/24/16 10:27 Dose: 40 mg Benzonatate (Tessalon Perles) 200 mg PO TID PRN PRN Reason: Cough Last Admin: 12/18/16 10:42 Dose: 200 mg Calcium Carbonate (Oscal) 500 mg PO BIDWM [facility] Last Admin: 12/24/16 10:10 Dose: 500 mg Cinacalcet (Sensipar) 30 mg PO DAILY [facility] Last Admin: 12/24/16 10:11 Dose: 30 mg Collagenase (Santyl) 1 applic TOP DAILY [facility] Last Admin: 12/24/16 10:28 Dose: 1 applic Diphenhydramine HCl (Benadryl) 25 mg PO Q6 PRN PRN Reason: Itching / Pruritus Last Admin: 12/17/16 09:53 Dose: 25 mg Docusate Sodium (Colace) 100 mg PO BID [facility] Last Admin: 12/24/16 10:11 Dose: 100 mg Epoetin Tha (Procrit) 20,000 unit IV MWF [facility] Last Admin: 12/23/16 16:38 Dose: 20,000 unit Ergocalciferol (Drisdol 50,000 Intl Units Cap) 1 cap PO WED [facility] Last Admin: 12/18/16 10:40 Dose: 1 cap Fluconazole (Diflucan) 100 mg PO DAILY [facility] Last Admin: 12/24/16 10:10 Dose: 100 mg Gabapentin (Neurontin) 300 mg PO TID [facility] Last Admin: 12/24/16 10:11 Dose: 300 mg Hydrocortisone (Anusol-Hc) 1 applic MD BID PRN PRN Reason: Inflammation Hydromorphone HCl (Dilaudid) 1 mg IVP Q4H PRN PRN Reason: Pain, severe (8-10) Last Admin: 12/23/16 14:52 Dose: 1 mg Meropenem 500 mg/ Sodium (Chloride) 100 mls @ 100 mls/hr IVPB DAILY@0100 [facility] Last Admin: 12/24/16 01:49 Dose: 100 mls/hr Gentamicin Sulfate/Sodium Chloride (Gentamicin 100mg/100ml Ns) 100 mg in 100 mls @ 100 mls/hr IVPB [facility] Last Admin: 12/23/16 19:59 Dose: 100 mls/hr Tigecycline 25 mg/ Sodium (Chloride) 100 mls @ 100 mls/hr IVPB Q12 [facility] Last Admin: 12/24/16 10:10 Dose: 100 mls/hr Sodium Chloride (Sodium Chloride 0.45%) 500 mls @ 10 mls/hr IV .Q24H [facility] Last Admin: 12/22/16 17:24 Dose: 10 mls/hr Iron Sucrose 100 mg/ Sodium (Chloride) 105 mls @ 105 mls/hr IVPB [facility] Stop: 12/30/16 09:59 Last Admin: 12/23/16 10:19 Dose: 105 mls/hr Daptomycin 650 mg/ Sodium (Chloride) 100 mls @ 100 mls/hr IVPB [facility] Stop: 01/15/17 09:59 Last Admin: 12/23/16 21:14 Dose: 100 mls/hr Nystatin (Nystop Topical Powder) 1 applic TOP BID [facility] Last Admin: 12/24/16 10:27 Dose: Not Given Ondansetron HCl (Zofran Inj) 4 mg IVP Q6 PRN PRN Reason: Nausea/Vomiting Last Admin: 09/19/16 10:26 Dose: 4 mg Pantoprazole Sodium (Protonix Ec Tab) 40 mg PO DAILY [facility] Last Admin: 12/24/16 10:27 Dose: 40 mg Repaglinide (Prandin) 0.5 mg PO TIDAC [facility] Last Admin: 12/24/16 10:32 Dose: 0.5 mg Sennosides (Senokot Tab) 25.8 mg PO HS [facility] Last Admin: 12/23/16 22:30 Dose: Not Given Sevelamer HCl (Renagel) 1,600 mg PO TID [facility] Last Admin: 12/24/16 10:10 Dose: 1,600 mg Topiramate (Topamax) 50 mg PO BID [facility] Last Admin: 12/24/16 10:32 Dose: 50 mg Vitamin B Complex/Vit C/Folic Acid (Nephro-Ajay) 1 tab PO DAILY [facility] Last Admin: 12/24/16 10:27 Dose: 1 tab - Labs Labs: 12/16/16 22:15 12/16/16 22:15 PT 15.3 Seconds (9.8-13.1) H 12/02/16 13:05 INR 1.4 (0.9-1.2) H 12/02/16 13:05 APTT 37.0 Seconds (25.6-37.1) 12/02/16 13:05 Assessment and Plan - Assessment and Plan (Free Text) Plan: VAC changed at bedside. Right BKA wound is well granulated and vascular with no tissue necrosis or krystal infection. Continue VAC and Santyl to patellar wound for now.
[2016-12-23] MEDS: Pantoprazole 40 mg EC Tab PO SCH (10:02)
[2016-12-23] MEDS: Multivitamin Vitamin B Complex (Nephro-Vite) Tab PO SCH (10:03)
[2016-12-23] MEDS: TIGECYCLINE IVPB SCH ×2 (10:19→22:39)
[2016-12-23] MEDS: SODIUM CHLORIDE 0.9% IVPB SCH ×2 (10:19→22:39)
--- NOTE | 2016-12-23 11:08 | CP.PCM.PN ---
Subjective - Date & Time of Evaluation Date of Evaluation: 12/23/16 Time of Evaluation: 11:05 - Subjective Subjective: Patient comfortable in bed awake Patient feeling good with good appetite and no new events reported Patient waiting to receive dialysis shortly Order was given Objective - Vital Signs/Intake and Output Vital Signs (last 24 hours): Temp Pulse Resp BP Pulse Ox 97.8 F 101 H 18 135/48 L 99 12/23/16 07:27 12/23/16 07:27 12/23/16 07:27 12/23/16 07:27 12/23/16 07:27 - Medications Medications: Current Medications Acetaminophen (Tylenol 325mg Tab) 650 mg PO Q4 PRN PRN Reason: Fever >100.4 F Last Admin: 11/21/16 00:44 Dose: 650 mg Acetaminophen (Tylenol 325mg Tab) 650 mg PO Q4 PRN PRN Reason: Pain, moderate (4-7) Last Admin: 12/23/16 00:19 Dose: 650 mg Albuterol Sulfate (Albuterol 0.083% Inhal Barbie (2.5 Mg/3 Ml) Ud) 2.5 mg INH RQ4 PRN PRN Reason: Shortness of Breath Albuterol/Ipratropium (Duoneb 3 Mg/0.5 Mg (3 Ml) Ud) 3 ml INH RQ4 PRN PRN Reason: Shortness of Breath Last Admin: 11/11/16 07:39 Dose: 3 ml Apixaban (Eliquis) 5 mg PO BID [facility] PRN Reason: Protocol Last Admin: 12/23/16 10:03 Dose: 5 mg Aspirin (Ecotrin) 81 mg PO DAILY [facility] Last Admin: 12/23/16 10:02 Dose: 81 mg Atorvastatin Calcium (Lipitor) 40 mg PO DAILY [facility] Last Admin: 12/23/16 10:03 Dose: 40 mg Benzonatate (Tessalon Perles) 200 mg PO TID PRN PRN Reason: Cough Last Admin: 12/18/16 10:42 Dose: 200 mg Calcium Carbonate (Oscal) 500 mg PO BIDWM [facility] Last Admin: 12/23/16 10:04 Dose: 500 mg Cinacalcet (Sensipar) 30 mg PO DAILY [facility] Last Admin: 12/23/16 10:05 Dose: 30 mg Collagenase (Santyl) 1 applic TOP DAILY [facility] Last Admin: 12/22/16 08:36 Dose: 1 applic Diphenhydramine HCl (Benadryl) 25 mg PO Q6 PRN PRN Reason: Itching / Pruritus Last Admin: 12/17/16 09:53 Dose: 25 mg Docusate Sodium (Colace) 100 mg PO BID [facility] Last Admin: 12/23/16 10:02 Dose: 100 mg Epoetin Tha (Procrit) 20,000 unit IV [facility] Last Admin: 12/20/16 18:21 Dose: 20,000 unit Ergocalciferol (Drisdol 50,000 Intl Units Cap) 1 cap PO WED [facility] Last Admin: 12/18/16 10:40 Dose: 1 cap Fluconazole (Diflucan) 100 mg PO DAILY [facility] Last Admin: 12/23/16 10:02 Dose: 100 mg Gabapentin (Neurontin) 300 mg PO TID [facility] Last Admin: 12/23/16 10:04 Dose: 300 mg Hydrocortisone (Anusol-Hc) 1 applic [place] BID PRN PRN Reason: Inflammation Hydromorphone HCl (Dilaudid) 1 mg IVP Q4H PRN PRN Reason: Pain, severe (8-10) Last Admin: 12/22/16 17:18 Dose: 1 mg Meropenem 500 mg/ Sodium (Chloride) 100 mls @ 100 mls/hr IVPB DAILY@0100 [facility] Last Admin: 12/23/16 00:08 Dose: 100 mls/hr Gentamicin Sulfate/Sodium Chloride (Gentamicin 100mg/100ml Ns) 100 mg in 100 mls @ 100 mls/hr IVPB [facility] Last Admin: 12/20/16 08:41 Dose: 100 mls/hr Tigecycline 25 mg/ Sodium (Chloride) 100 mls @ 100 mls/hr IVPB Q12 [facility] Last Admin: 12/23/16 10:19 Dose: 100 mls/hr Sodium Chloride (Sodium Chloride 0.45%) 500 mls @ 10 mls/hr IV .Q24H [facility] Last Admin: 12/22/16 17:24 Dose: 10 mls/hr Iron Sucrose 100 mg/ Sodium (Chloride) 105 mls @ 105 mls/hr IVPB [facility] Stop: 12/30/16 09:59 Last Admin: 12/23/16 10:19 Dose: 105 mls/hr Daptomycin 650 mg/ Sodium (Chloride) 100 mls @ 100 mls/hr IVPB MWF [facility] Stop: 01/15/17 09:59 Nystatin (Nystop Topical Powder) 1 applic TOP BID [facility] Last Admin: 12/23/16 10:09 Dose: Not Given Ondansetron HCl (Zofran Inj) 4 mg IVP Q6 PRN PRN Reason: Nausea/Vomiting Last Admin: 09/19/16 10:26 Dose: 4 mg Pantoprazole Sodium (Protonix Ec Tab) 40 mg PO DAILY [facility] Last Admin: 12/23/16 10:02 Dose: 40 mg Repaglinide (Prandin) 0.5 mg PO TIDAC [facility] Last Admin: 12/23/16 10:04 Dose: 0.5 mg Sennosides (Senokot Tab) 25.8 mg PO HS [facility] Last Admin: 12/23/16 00:20 Dose: 25.8 mg Sevelamer HCl (Renagel) 1,600 mg PO TID [facility] Last Admin: 12/23/16 10:05 Dose: 1,600 mg Topiramate (Topamax) 50 mg PO BID [facility] Last Admin: 12/23/16 10:05 Dose: 50 mg Vitamin B Complex/Vit C/Folic Acid (Nephro-Ajay) 1 tab PO DAILY [facility] Last Admin: 12/23/16 10:03 Dose: 1 tab - Labs Labs: 12/16/16 22:15 12/16/16 22:15 PT 15.3 Seconds (9.8-13.1) H 12/02/16 13:05 INR 1.4 (0.9-1.2) H 12/02/16 13:05 APTT 37.0 Seconds (25.6-37.1) 12/02/16 13:05 - Constitutional Appears: No Acute Distress - ENT Exam ENT Exam: Mucous Membranes Moist - Respiratory Exam Respiratory Exam: absent: Chest Wall Tenderness - Cardiovascular Exam Cardiovascular Exam: absent: JVD, Rubs - GI/Abdominal Exam GI & Abdominal Exam: Normal Bowel Sounds - Extremities Exam Extremities Exam: absent: Calf Tenderness - Back Exam Back Exam: absent: CVA tenderness (L), CVA tenderness (R) - Neurological Exam Neurological Exam: Alert Assessment and Plan (1) ESRD (end stage renal disease) Assessment & Plan: End stage renal disease patient about to have dialysis as scheduled Friday Order was given was sodium bath 138 and potassium 2 mEq and bicarbonate 34 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 End stage renal disease on hemodialysis (MWF) via permacath: Will plan for dialysis friday. No Acute need today. continue with Nephrovite 1 tab/day. Anemia: PRBC as needed. On MARTHA as Epogen 20,000 with HD. last Hb 10 Hyperphosphatemia: continue with current meds as renagel 1600 TID, last phos 4.8 Secondary hyperparathyroidism with Vit D Deficiency: continue with sensipar 30 mg/day. Last PTH level 423. recheck with next lab Hypertension controlled: BP mostly on low side Glycemic control, Dialysis consistent diet Further work up/management as per primary team. 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 continue Venofer as order on dialysis Status: Chronic (2) Cellulitis of leg Status: Chronic
--- NOTE | 2016-12-23 14:33 | PN ---
ENDO FOLLOWUP NOTE LOCATION: Room 661. SUBJECTIVE: This is a 46-year-old female with known history of type 2 diabetes, currently off insulin therapy and doing very well on just low dose oral hypoglycemic drug therapy as noted. She underwent a recent right below-knee amputation for severe underlying osteomyelitis and also had repeat debridement at the stump area as noted. Her glucose values are fluctuating as per the viability of her oral intake as noted. Her latest glucose levels have ranged from 96 to 101 to 107 mg/dL. So at this time, we will continue the same low dose oral hypoglycemic drug therapy as given with Prandin given at 0.5 mg p.o. t.i.d. before meals as given. We will titrate incrementally as needed to optimize metabolic control. We will follow with you. Irene Ambrose MD
--- NOTE | 2016-12-23 15:44 | CP.PCM.PN ---
Subjective - Date & Time of Evaluation Date of Evaluation: 12/23/16 Time of Evaluation: 15:37 - Subjective Subjective: Patient is comfortable. She went outside yesterday as part of physical therapy routine - did well with propelling self in wheelchair, but tires easily. Wound vac changed by Dr. Mccormack. The right BK wound is granulating in nicely and is definitely smaller. No odor and no purulence. The wound vac was reapplied and will be changed again on 12/27. The right patellar wound is coming along, with less fibrous material and a larger area of nice granulatio tissue. Daily "scrubbing" and then Santyl + moist saline dressings to continue. The left BK area and patellar area show no sign of skin breakdown. Physical therapy will try putting on new left BK prosthesis and allowing patient to sit with it on for an hour or so to see how that goes. If no signs of pressure or irritation, they will allow the patient (with max assistance of 3 persons) to stand. Glucoses range from 96 to 101. Continues on Prandin. Hemodialysis began a few minutes ago. Dr. Guadarrama's note appreciated. CBC, CMP , CPK, and PTH drawn by dialysis nurse. No seizures and no clotting. Continues of 4 iv antibiotics and po fluconazole for osteomyelitis R BK area. Objective - Vital Signs/Intake and Output Vital Signs (last 24 hours): Temp Pulse Resp BP Pulse Ox 97.8 F 101 H 18 135/48 L 99 12/23/16 07:27 12/23/16 07:27 12/23/16 07:27 12/23/16 07:27 12/23/16 07:27 - Medications Medications: Current Medications Acetaminophen (Tylenol 325mg Tab) 650 mg PO Q4 PRN PRN Reason: Fever >100.4 F Last Admin: 11/21/16 00:44 Dose: 650 mg Acetaminophen (Tylenol 325mg Tab) 650 mg PO Q4 PRN PRN Reason: Pain, moderate (4-7) Last Admin: 12/23/16 00:19 Dose: 650 mg Albuterol Sulfate (Albuterol 0.083% Inhal Barbie (2.5 Mg/3 Ml) Ud) 2.5 mg INH RQ4 PRN PRN Reason: Shortness of Breath Albuterol/Ipratropium (Duoneb 3 Mg/0.5 Mg (3 Ml) Ud) 3 ml INH RQ4 PRN PRN Reason: Shortness of Breath Last Admin: 11/11/16 07:39 Dose: 3 ml Apixaban (Eliquis) 5 mg PO BID [facility] PRN Reason: Protocol Last Admin: 12/23/16 10:03 Dose: 5 mg Aspirin (Ecotrin) 81 mg PO DAILY [facility] Last Admin: 12/23/16 10:02 Dose: 81 mg Atorvastatin Calcium (Lipitor) 40 mg PO DAILY [facility] Last Admin: 12/23/16 10:03 Dose: 40 mg Benzonatate (Tessalon Perles) 200 mg PO TID PRN PRN Reason: Cough Last Admin: 12/18/16 10:42 Dose: 200 mg Calcium Carbonate (Oscal) 500 mg PO BIDWM [facility] Last Admin: 12/23/16 10:04 Dose: 500 mg Cinacalcet (Sensipar) 30 mg PO DAILY [facility] Last Admin: 12/23/16 10:05 Dose: 30 mg Collagenase (Santyl) 1 applic TOP DAILY [facility] Last Admin: 12/22/16 08:36 Dose: 1 applic Diphenhydramine HCl (Benadryl) 25 mg PO Q6 PRN PRN Reason: Itching / Pruritus Last Admin: 12/17/16 09:53 Dose: 25 mg Docusate Sodium (Colace) 100 mg PO BID [facility] Last Admin: 12/23/16 10:02 Dose: 100 mg Epoetin Tha (Procrit) 20,000 unit IV MWF [facility] Last Admin: 12/20/16 18:21 Dose: 20,000 unit Ergocalciferol (Drisdol 50,000 Intl Units Cap) 1 cap PO WED [facility] Last Admin: 12/18/16 10:40 Dose: 1 cap Fluconazole (Diflucan) 100 mg PO DAILY [facility] Last Admin: 12/23/16 10:02 Dose: 100 mg Gabapentin (Neurontin) 300 mg PO TID [facility] Last Admin: 12/23/16 14:53 Dose: 300 mg Hydrocortisone (Anusol-Hc) 1 applic [place] BID PRN PRN Reason: Inflammation Hydromorphone HCl (Dilaudid) 1 mg IVP Q4H PRN PRN Reason: Pain, severe (8-10) Last Admin: 12/23/16 14:52 Dose: 1 mg Meropenem 500 mg/ Sodium (Chloride) 100 mls @ 100 mls/hr IVPB DAILY@0100 [facility] Last Admin: 12/23/16 00:08 Dose: 100 mls/hr Gentamicin Sulfate/Sodium Chloride (Gentamicin 100mg/100ml Ns) 100 mg in 100 mls @ 100 mls/hr IVPB [facility] Last Admin: 12/20/16 08:41 Dose: 100 mls/hr Tigecycline 25 mg/ Sodium (Chloride) 100 mls @ 100 mls/hr IVPB Q12 [facility] Last Admin: 12/23/16 10:19 Dose: 100 mls/hr Sodium Chloride (Sodium Chloride 0.45%) 500 mls @ 10 mls/hr IV .Q24H [facility] Last Admin: 12/22/16 17:24 Dose: 10 mls/hr Iron Sucrose 100 mg/ Sodium (Chloride) 105 mls @ 105 mls/hr IVPB [facility] Stop: 12/30/16 09:59 Last Admin: 12/23/16 10:19 Dose: 105 mls/hr Daptomycin 650 mg/ Sodium (Chloride) 100 mls @ 100 mls/hr IVPB [facility] Stop: 01/15/17 09:59 Nystatin (Nystop Topical Powder) 1 applic TOP BID [facility] Last Admin: 12/23/16 10:09 Dose: Not Given Ondansetron HCl (Zofran Inj) 4 mg IVP Q6 PRN PRN Reason: Nausea/Vomiting Last Admin: 09/19/16 10:26 Dose: 4 mg Pantoprazole Sodium (Protonix Ec Tab) 40 mg PO DAILY [facility] Last Admin: 12/23/16 10:02 Dose: 40 mg Repaglinide (Prandin) 0.5 mg PO TIDAC [facility] Last Admin: 12/23/16 14:54 Dose: 0.5 mg Sennosides (Senokot Tab) 25.8 mg PO HS [facility] Last Admin: 12/23/16 00:20 Dose: 25.8 mg Sevelamer HCl (Renagel) 1,600 mg PO TID [facility] Last Admin: 12/23/16 14:53 Dose: 1,600 mg Topiramate (Topamax) 50 mg PO BID [facility] Last Admin: 12/23/16 10:05 Dose: 50 mg Vitamin B Complex/Vit C/Folic Acid (Nephro-Ajay) 1 tab PO DAILY [facility] Last Admin: 12/23/16 10:03 Dose: 1 tab - Labs Labs: 12/16/16 22:15 12/16/16 22:15 PT 15.3 Seconds (9.8-13.1) H 12/02/16 13:05 INR 1.4 (0.9-1.2) H 12/02/16 13:05 APTT 37.0 Seconds (25.6-37.1) 12/02/16 13:05 - Constitutional Appears: No Acute Distress - Head Exam Head Exam: NORMAL INSPECTION - Eye Exam Eye Exam: Normal appearance - ENT Exam ENT Exam: Mucous Membranes Moist - Neck Exam Neck Exam: Normal Inspection - Respiratory Exam Respiratory Exam: Clear to Ausculation Bilateral, NORMAL BREATHING PATTERN - Cardiovascular Exam Cardiovascular Exam: REGULAR RHYTHM, +S1, +S2 - GI/Abdominal Exam GI & Abdominal Exam: Soft - Extremities Exam Additional comments: See Subjective. Left femoral vein PICC line intact. - Neurological Exam Neurological Exam: Alert, CN II-XII Intact, Oriented x3 - Psychiatric Exam Psychiatric exam: Normal Affect, Normal Mood Assessment and Plan (1) Status post below knee amputation of right lower extremity Assessment & Plan: Making slow but steady progress in wound healing and physical/occupational rehabilitation. Status: Acute (2) ESRD (end stage renal disease) on dialysis Status: Chronic (3) DM type 2 (diabetes mellitus, type 2) Assessment & Plan: Well controlled. 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
[2016-12-23] MEDS: Epoetin Alfa 20000 UNIT/ML Inj IV SCH (16:38)
[2016-12-23] MEDS: Santyl Collagenase OINTMENT TOP SCH (19:15)
[2016-12-23] MEDS: Gentamicin 100mg/100ml NS 100 MG/100 ML BAG IVPB SCH (19:59)
[2016-12-24] MEDS: Meropenem 500 MG in Sodium Chloride 0.9% 100 ML IVPB SCH (01:49)
[2016-12-24] MEDS: TIGECYCLINE IVPB SCH ×2 (10:10→20:16)
[2016-12-24] MEDS: SODIUM CHLORIDE 0.9% IVPB SCH ×2 (10:10→20:16)
[2016-12-24] MEDS: Multivitamin Vitamin B Complex (Nephro-Vite) Tab PO SCH (10:27)
[2016-12-24] MEDS: Pantoprazole 40 mg EC Tab PO SCH (10:27)
[2016-12-24] MEDS: Santyl Collagenase OINTMENT TOP SCH (10:28)
--- NOTE | 2016-12-24 12:04 | CP.PCM.PN ---
Subjective - Date & Time of Evaluation Date of Evaluation: 12/24/16 Time of Evaluation: 12:03 - Subjective Subjective: No new event therapy patient is stable clinically Vital signs stable Patient has been tolerating very good hemodialysis The rest of the medical problem as noted the same 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 End stage renal disease on hemodialysis (MWF) via permacath: Will plan for dialysis friday. No Acute need today. continue with Nephrovite 1 tab/day. Anemia: On MARTHA as Epogen 20,000 with HD. last Hb 10 Hyperphosphatemia: continue with current meds as renagel 1600 TID, last phos 4.8 Secondary hyperparathyroidism with Vit D Deficiency: continue with sensipar 30 mg/day. Last PTH level 423. recheck with next lab Hypertension controlled: BP mostly on low side Glycemic control, Dialysis consistent diet Further work up/management as per primary team. 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 continue Venofer as order on dialysis Objective - Vital Signs/Intake and Output Vital Signs (last 24 hours): Temp Pulse Resp BP Pulse Ox 97.4 F L 99 H 20 144/82 97 12/24/16 07:21 12/24/16 07:21 12/24/16 07:21 12/24/16 07:21 12/24/16 07:21 - Medications Medications: Current Medications Acetaminophen (Tylenol 325mg Tab) 650 mg PO Q4 PRN PRN Reason: Fever >100.4 F Last Admin: 11/21/16 00:44 Dose: 650 mg Acetaminophen (Tylenol 325mg Tab) 650 mg PO Q4 PRN PRN Reason: Pain, moderate (4-7) Last Admin: 12/23/16 22:37 Dose: 650 mg Albuterol Sulfate (Albuterol 0.083% Inhal Barbie (2.5 Mg/3 Ml) Ud) 2.5 mg INH RQ4 PRN PRN Reason: Shortness of Breath Albuterol/Ipratropium (Duoneb 3 Mg/0.5 Mg (3 Ml) Ud) 3 ml INH RQ4 PRN PRN Reason: Shortness of Breath Last Admin: 11/11/16 07:39 Dose: 3 ml Apixaban (Eliquis) 5 mg PO BID [facility] PRN Reason: Protocol Last Admin: 12/24/16 10:11 Dose: 5 mg Aspirin (Ecotrin) 81 mg PO DAILY [facility] Last Admin: 12/24/16 10:27 Dose: 81 mg Atorvastatin Calcium (Lipitor) 40 mg PO DAILY [facility] Last Admin: 12/24/16 10:27 Dose: 40 mg Benzonatate (Tessalon Perles) 200 mg PO TID PRN PRN Reason: Cough Last Admin: 12/18/16 10:42 Dose: 200 mg Calcium Carbonate (Oscal) 500 mg PO BIDWM [facility] Last Admin: 12/24/16 10:10 Dose: 500 mg Cinacalcet (Sensipar) 30 mg PO DAILY [facility] Last Admin: 12/24/16 10:11 Dose: 30 mg Collagenase (Santyl) 1 applic TOP DAILY [facility] Last Admin: 12/24/16 10:28 Dose: 1 applic Diphenhydramine HCl (Benadryl) 25 mg PO Q6 PRN PRN Reason: Itching / Pruritus Last Admin: 12/17/16 09:53 Dose: 25 mg Docusate Sodium (Colace) 100 mg PO BID [facility] Last Admin: 12/24/16 10:11 Dose: 100 mg Epoetin Tha (Procrit) 20,000 unit IV MWF [facility] Last Admin: 12/23/16 16:38 Dose: 20,000 unit Ergocalciferol (Drisdol 50,000 Intl Units Cap) 1 cap PO WED [facility] Last Admin: 12/18/16 10:40 Dose: 1 cap Fluconazole (Diflucan) 100 mg PO DAILY [facility] Last Admin: 12/24/16 10:10 Dose: 100 mg Gabapentin (Neurontin) 300 mg PO TID [facility] Last Admin: 12/24/16 10:11 Dose: 300 mg Hydrocortisone (Anusol-Hc) 1 applic [place] BID PRN PRN Reason: Inflammation Hydromorphone HCl (Dilaudid) 1 mg IVP Q4H PRN PRN Reason: Pain, severe (8-10) Last Admin: 12/23/16 14:52 Dose: 1 mg Meropenem 500 mg/ Sodium (Chloride) 100 mls @ 100 mls/hr IVPB DAILY@0100 [facility] Last Admin: 12/24/16 01:49 Dose: 100 mls/hr Gentamicin Sulfate/Sodium Chloride (Gentamicin 100mg/100ml Ns) 100 mg in 100 mls @ 100 mls/hr IVPB [facility] Last Admin: 12/23/16 19:59 Dose: 100 mls/hr Tigecycline 25 mg/ Sodium (Chloride) 100 mls @ 100 mls/hr IVPB Q12 [facility] Last Admin: 12/24/16 10:10 Dose: 100 mls/hr Sodium Chloride (Sodium Chloride 0.45%) 500 mls @ 10 mls/hr IV .Q24H [facility] Last Admin: 12/22/16 17:24 Dose: 10 mls/hr Iron Sucrose 100 mg/ Sodium (Chloride) 105 mls @ 105 mls/hr IVPB [facility] Stop: 12/30/16 09:59 Last Admin: 12/23/16 10:19 Dose: 105 mls/hr Daptomycin 650 mg/ Sodium (Chloride) 100 mls @ 100 mls/hr IVPB [facility] Stop: 01/15/17 09:59 Last Admin: 12/23/16 21:14 Dose: 100 mls/hr Nystatin (Nystop Topical Powder) 1 applic TOP BID [facility] Last Admin: 12/24/16 10:27 Dose: Not Given Ondansetron HCl (Zofran Inj) 4 mg IVP Q6 PRN PRN Reason: Nausea/Vomiting Last Admin: 09/19/16 10:26 Dose: 4 mg Pantoprazole Sodium (Protonix Ec Tab) 40 mg PO DAILY [facility] Last Admin: 12/24/16 10:27 Dose: 40 mg Repaglinide (Prandin) 0.5 mg PO TIDAC [facility] Last Admin: 12/24/16 10:32 Dose: 0.5 mg Sennosides (Senokot Tab) 25.8 mg PO HS [facility] Last Admin: 12/23/16 22:30 Dose: Not Given Sevelamer HCl (Renagel) 1,600 mg PO TID [facility] Last Admin: 12/24/16 10:10 Dose: 1,600 mg Topiramate (Topamax) 50 mg PO BID [facility] Last Admin: 12/24/16 10:32 Dose: 50 mg Vitamin B Complex/Vit C/Folic Acid (Nephro-Ajay) 1 tab PO DAILY [facility] Last Admin: 12/24/16 10:27 Dose: 1 tab - Labs Labs: 08/07/17 22:15 12/16/16 22:15 PT 15.3 Seconds (9.8-13.1) H 12/02/16 13:05 INR 1.4 (0.9-1.2) H 12/02/16 13:05 APTT 37.0 Seconds (25.6-37.1) 12/02/16 13:05 Assessment and Plan (1) ESRD (end stage renal disease) Status: Chronic (2) Cellulitis of leg Status: Chronic
--- NOTE | 2016-12-24 17:28 | PN ---
DATE: ENDO FOLLOWUP NOTE LOCATION: Room 661. SUBJECTIVE: This is a 46-year-old female with recent uncontrolled type 2 diabetes, currently taken off all insulin therapy and doing very well on just a very low dose oral hypoglycemic drug therapy as given. LABORATORY DATA: Her glucose values have ranged from 104 to 150 mg/dL. PLAN: So, at this time, we will continue her low dose Prandin given at 0.5 mg t.i.d. with meals as ordered. We will also continue the ongoing IV antibiotics, which has been given for management of severe underlying osteomyelitis in the right below-knee amputation stump area. We will follow and advice accordingly. Irene Ambrose MD
--- NOTE | 2016-12-24 19:22 | CP.PCM.PN ---
Subjective - Date & Time of Evaluation Date of Evaluation: 12/24/16 Time of Evaluation: 19:19 - Subjective Subjective: Dr. Guadarrama's note appreciated. Glucoses running 89 to 150. This is OK. Continues on wound vac to R BK amputation site and Santyl dressings to R patella. Antibiotics continue - all renewed. No labs reported for blood work ordered for yesterday ? Computer indicates they were uncollected, but I watched as the dialysis nurse filled the tubes !!! I spoke with laboratory and was told that the CMP and CBC and PTH were not done because the tests were not marked "collected" on the computer. Dr. Andrew Shepard has since reordered the CBC. And I have just verbally re-ordered the CMP and PTH. Patient has no new complaiints, is happy the TV is finally working. No new physical findings. Objective - Vital Signs/Intake and Output Vital Signs (last 24 hours): Temp Pulse Resp BP Pulse Ox 98.4 F 103 H 22 141/73 97 12/24/16 16:15 12/24/16 16:15 12/24/16 16:15 12/24/16 16:15 12/24/16 16:15 - Medications Medications: Current Medications Acetaminophen (Tylenol 325mg Tab) 650 mg PO Q4 PRN PRN Reason: Fever >100.4 F Last Admin: 11/21/16 00:44 Dose: 650 mg Acetaminophen (Tylenol 325mg Tab) 650 mg PO Q4 PRN PRN Reason: Pain, moderate (4-7) Last Admin: 12/24/16 13:56 Dose: 650 mg Albuterol Sulfate (Albuterol 0.083% Inhal Barbie (2.5 Mg/3 Ml) Ud) 2.5 mg INH RQ4 PRN PRN Reason: Shortness of Breath Albuterol/Ipratropium (Duoneb 3 Mg/0.5 Mg (3 Ml) Ud) 3 ml INH RQ4 PRN PRN Reason: Shortness of Breath Last Admin: 11/11/16 07:39 Dose: 3 ml Apixaban (Eliquis) 5 mg PO BID [facility] PRN Reason: Protocol Last Admin: 12/24/16 17:00 Dose: 5 mg Aspirin (Ecotrin) 81 mg PO DAILY [facility] Last Admin: 12/24/16 10:27 Dose: 81 mg Atorvastatin Calcium (Lipitor) 40 mg PO DAILY [facility] Last Admin: 12/24/16 10:27 Dose: 40 mg Benzonatate (Tessalon Perles) 200 mg PO TID PRN PRN Reason: Cough Last Admin: 12/18/16 10:42 Dose: 200 mg Calcium Carbonate (Oscal) 500 mg PO BIDWM [facility] Last Admin: 12/24/16 17:00 Dose: 500 mg Cinacalcet (Sensipar) 30 mg PO DAILY [facility] Last Admin: 12/24/16 10:11 Dose: 30 mg Collagenase (Santyl) 1 applic TOP DAILY [facility] Last Admin: 12/24/16 10:28 Dose: 1 applic Diphenhydramine HCl (Benadryl) 25 mg PO Q6 PRN PRN Reason: Itching / Pruritus Last Admin: 12/17/16 09:53 Dose: 25 mg Docusate Sodium (Colace) 100 mg PO BID [facility] Last Admin: 12/24/16 17:01 Dose: 100 mg Epoetin Tha (Procrit) 20,000 [place] [facility] [place] Admin: 12/23/16 16:38 Dose: 20,000 unit Ergocalciferol (Drisdol 50,000 Intl Units Cap) 1 cap PO WED [facility] Last Admin: 12/18/16 10:40 Dose: 1 cap Fluconazole (Diflucan) 100 mg PO DAILY [facility] Last Admin: 12/24/16 10:10 Dose: 100 mg Gabapentin (Neurontin) 300 mg PO TID [facility] Last Admin: 12/24/16 17:00 Dose: 300 mg Hydrocortisone (Anusol-Hc) 1 applic [place] BID PRN PRN Reason: Inflammation Hydromorphone HCl (Dilaudid) 1 mg IVP Q4H PRN PRN Reason: Pain, severe (8-10) Last Admin: 12/23/16 14:52 Dose: 1 mg Meropenem 500 mg/ Sodium (Chloride) 100 mls @ 100 mls/hr IVPB DAILY@0100 [facility] Last Admin: 12/24/16 01:49 Dose: 100 mls/hr Gentamicin Sulfate/Sodium Chloride (Gentamicin 100mg/100ml Ns) 100 mg in 100 mls @ 100 mls/hr IVPB MWF [facility] Last Admin: 12/23/16 19:59 Dose: 100 mls/hr Tigecycline 25 mg/ Sodium (Chloride) 100 mls @ 100 mls/hr IVPB Q12 [facility] Last Admin: 12/24/16 10:10 Dose: 100 mls/hr Sodium Chloride (Sodium Chloride 0.45%) 500 mls @ 10 mls/hr IV .Q24H [facility] Last Admin: 12/24/16 17:01 Dose: Not Given Iron Sucrose 100 mg/ Sodium (Chloride) 105 mls @ 105 mls/hr [place]PB [facility] [place] Stop: 12/30/16 09:59 Last Admin: 12/23/16 10:19 Dose: 105 mls/hr Daptomycin 650 mg/ Sodium (Chloride) 100 mls @ 100 mls/hr [place]PB [facility] [place] Stop: 01/15/17 09:59 Last Admin: 12/23/16 21:14 Dose: 100 mls/hr Nystatin (Nystop Topical Powder) 1 applic TOP BID [facility] Last Admin: 12/24/16 17:00 Dose: Not Given Ondansetron HCl (Zofran Inj) 4 mg IVP Q6 PRN PRN Reason: Nausea/Vomiting Last Admin: 09/19/16 10:26 Dose: 4 mg Pantoprazole Sodium (Protonix Ec Tab) 40 mg PO DAILY [facility] Last Admin: 12/24/16 10:27 Dose: 40 mg Repaglinide (Prandin) 0.5 mg PO TIDAC [facility] Last Admin: 12/24/16 17:00 Dose: 0.5 mg Sennosides (Senokot Tab) 25.8 mg PO HS [facility] Last Admin: 12/23/16 22:30 Dose: Not Given Sevelamer HCl (Renagel) 1,600 mg PO TID [facility] Last Admin: 12/24/16 16:59 Dose: 1,600 mg Topiramate (Topamax) 50 mg PO BID [facility] Last Admin: 12/24/16 17:01 Dose: 50 mg Vitamin B Complex/Vit C/Folic Acid (Nephro-Ajay) 1 tab PO DAILY [facility] Last Admin: 12/24/16 10:27 Dose: 1 tab - Labs Labs: 12/16/16 22:15 12/16/16 22:15 PT 15.3 Seconds (9.8-13.1) H 12/02/16 13:05 INR 1.4 (0.9-1.2) H 12/02/16 13:05 APTT 37.0 Seconds (25.6-37.1) 12/02/16 13:05 Assessment and Plan (1) Status post below knee amputation of right lower extremity Status: Acute (2) ESRD (end stage renal disease) on dialysis Status: Chronic (3) DM type 2 (diabetes mellitus, type 2) Status: Chronic (4) Coagulopathy Status: Chronic (5) Peripheral arterial occlusive disease Status: Chronic (6) 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
[2016-12-24] MEDS: Benzocaine/Menthol (Cepacol) Lozenge PO PRN (22:38)
[2016-12-25] MEDS: Meropenem 500 MG in Sodium Chloride 0.9% 100 ML IVPB SCH (01:03)
[2016-12-25] MEDS: Benzocaine/Menthol (Cepacol) Lozenge PO PRN ×3 (06:13→20:17)
[2016-12-25 07:53] LABS: BASO # 0.1 K/uL (0.0-0.2); BASO % 1.3 % (0.0-2.0); EOS # 0.7 K/uL (0.0-0.7); EOS % 8.8 % (0.0-4.0); HEMATOCRIT 36.7 % (34.0-47.0); LYMPH # 1.6 K/uL (1.0-4.3); LYMPH % 20.4 % (20.0-40.0); MEAN CELL VOLUME 97.7 fl (81.0-99.0); MEAN CORPUSCULAR HEMOGLOBIN 30.6 pg (27.0-31.0); MEAN CORPUSCULAR HGB CONC 31.4 g/dL (33.0-37.0); MEAN PLATELET VOLUME 9.6 fl (7.2-11.7); MONO # 0.8 K/uL (0.0-0.8); MONO % 10.7 % (0.0-10.0); NEUT # 4.7 K/uL (1.8-7.0); NEUT % 58.8 % (50.0-75.0); NRBC % 0.1 % (0.0-0.0); RED CELL DISTRIBUTION WIDTH 20.3 % (11.5-14.5); WHITE BLOOD COUNT 7.9 K/uL (4.8-10.8)
[2016-12-25 08:29] LABS: ALB/GLOB RATIO 0.8 (1.0-2.1); BILIRUBIN,TOTAL 0.6 mg/dl (0.2-1.3); CALCIUM 8.8 mg/dL (8.4-10.2); POTASSIUM 4.6 MMOL/L (3.6-5.0); TOTAL PROTEIN 7.4 G/DL (6.3-8.2)
[2016-12-25] MEDS: Gentamicin 100mg/100ml NS 100 MG/100 ML BAG IVPB SCH (10:15)
[2016-12-25] MEDS: Ergocalciferol 50,000 Intl Units Cap PO SCH (10:18)
[2016-12-25] MEDS: Multivitamin Vitamin B Complex (Nephro-Vite) Tab PO SCH (10:21)
[2016-12-25] MEDS: Epoetin Alfa 20000 UNIT/ML Inj IV SCH (10:25)
[2016-12-25] MEDS: Pantoprazole 40 mg EC Tab PO SCH (10:25)
[2016-12-25] MEDS: SODIUM CHLORIDE 0.9% IVPB SCH ×2 (10:27→20:28)
[2016-12-25] MEDS: TIGECYCLINE IVPB SCH ×2 (10:27→20:28)
--- NOTE | 2016-12-25 11:25 | CP.PCM.PN ---
Subjective - Date & Time of Evaluation Date of Evaluation: 12/25/16 Time of Evaluation: 11:23 - Subjective Subjective: Patient complained of sore throat last night - better now. Throat culture ordered and Cepacol lozenges prn started. Throat feels better today. Sl. cough, so advised aerosol treatment (previously ordered). Hemodialysis in progress. Bloods redrawn for CBC, CMP, and PTH since the lab never processed the samples drawn on 12/23. Glucoses well controlled. Complains of severe phantom limb pain in right lower leg, especially. Better now. Will use Dilaudid iv if necessary. Objective - Vital Signs/Intake and Output Vital Signs (last 24 hours): Temp Pulse Resp BP Pulse Ox 98.5 F 115 H 20 174/74 H 95 12/25/16 07:34 12/25/16 07:34 12/25/16 07:34 12/25/16 07:34 12/25/16 07:34 - Medications Medications: Current Medications Acetaminophen (Tylenol 325mg Tab) 650 mg PO Q4 PRN PRN Reason: Fever >100.4 F Last Admin: 12/25/16 10:27 Dose: 650 mg Acetaminophen (Tylenol 325mg Tab) 650 mg PO Q4 PRN PRN Reason: Pain, moderate (4-7) Last Admin: 12/24/16 13:56 Dose: 650 mg Albuterol Sulfate (Albuterol 0.083% Inhal Barbie (2.5 Mg/3 Ml) Ud) 2.5 mg INH RQ4 PRN PRN Reason: Shortness of Breath Albuterol/Ipratropium (Duoneb 3 Mg/0.5 Mg (3 Ml) Ud) 3 ml INH RQ4 PRN PRN Reason: Shortness of Breath Last Admin: 11/11/16 07:39 Dose: 3 ml Apixaban (Eliquis) 5 mg PO BID [facility] PRN Reason: Protocol Last Admin: 12/25/16 10:19 Dose: 5 mg Aspirin (Ecotrin) 81 mg PO DAILY [facility] Last Admin: 12/25/16 10:18 Dose: 81 mg Atorvastatin Calcium (Lipitor) 40 mg PO DAILY [facility] Last Admin: 12/25/16 10:20 Dose: 40 mg Benzocaine/Menthol (Cepacol Sore Throat) 1 mindi PO Q2 PRN PRN Reason: Sore Throat Last Admin: 12/25/16 06:13 Dose: 1 mindi Benzonatate (Tessalon Perles) 200 mg PO TID PRN PRN Reason: Cough Last Admin: 12/18/16 10:42 Dose: 200 mg Calcium Carbonate (Oscal) 500 mg PO BIDWM [facility] Last Admin: 12/25/16 10:22 Dose: 500 mg Cinacalcet (Sensipar) 30 mg PO DAILY [facility] Last Admin: 12/25/16 10:26 Dose: 30 mg Collagenase (Santyl) 1 applic TOP DAILY [facility] Last Admin: 12/24/16 10:28 Dose: 1 applic Diphenhydramine HCl (Benadryl) 25 mg PO Q6 PRN PRN Reason: Itching / Pruritus Last Admin: 12/17/16 09:53 Dose: 25 mg Docusate Sodium (Colace) 100 mg PO BID [facility] Last Admin: 12/25/16 10:12 Dose: 100 mg Epoetin Tha (Procrit) 20,000 unit IV [facility] Last Admin: 12/25/16 10:25 Dose: 20,000 unit Ergocalciferol (Drisdol 50,000 Intl Units Cap) 1 cap PO WED [facility] Last Admin: 12/25/16 10:18 Dose: 1 cap Fluconazole (Diflucan) 100 mg PO DAILY [facility] Last Admin: 12/25/16 10:17 Dose: 100 mg Gabapentin (Neurontin) 300 mg PO TID [facility] Last Admin: 12/25/16 10:21 Dose: 300 mg Hydrocortisone (Anusol-Hc) [address] BID PRN PRN Reason: Inflammation Hydromorphone HCl (Dilaudid) 1 mg IVP Q4H PRN PRN Reason: Pain, severe (8-10) Last Admin: 12/24/16 20:15 Dose: 1 mg Meropenem 500 mg/ Sodium (Chloride) 100 mls @ 100 mls/hr IVPB DAILY@0100 [facility] Last Admin: 12/25/16 01:03 Dose: 100 mls/hr Gentamicin Sulfate/Sodium Chloride (Gentamicin 100mg/100ml Ns) 100 mg in 100 mls @ 100 mls/hr IVPB MWF [facility] Last Admin: 12/25/16 10:15 Dose: 100 mls/hr Tigecycline 25 mg/ Sodium (Chloride) 100 mls @ 100 mls/hr IVPB Q12 [facility] Last Admin: 12/25/16 10:27 Dose: 100 mls/hr Sodium Chloride (Sodium Chloride 0.45%) 500 mls @ 10 mls/hr IV .Q24H [facility] Last Admin: 12/24/16 17:01 Dose: Not Given Iron Sucrose 100 mg/ Sodium (Chloride) 105 mls @ 105 mls/hr [place] [facility] [place] Stop: 12/30/16 09:59 Last Admin: 12/25/16 11:13 Dose: 105 mls/hr Daptomycin 650 mg/ Sodium (Chloride) 100 mls @ 100 mls/hr [place]PB [facility] [place] Stop: 01/15/17 09:59 Last Admin: 12/25/16 11:12 Dose: 100 mls/hr Nystatin (Nystop Topical Powder) 1 applic TOP BID [facility] Last Admin: 12/25/16 10:22 Dose: Not Given Ondansetron HCl (Zofran Inj) 4 mg IVP Q6 PRN PRN Reason: Nausea/Vomiting Last Admin: 09/19/16 10:26 Dose: 4 mg Pantoprazole Sodium (Protonix Ec Tab) 40 mg PO DAILY [facility] Last Admin: 12/25/16 10:25 Dose: 40 mg Repaglinide (Prandin) 0.5 mg PO TIDAC [facility] Last Admin: 12/25/16 10:23 Dose: 0.5 mg Sennosides (Senokot Tab) 25.8 mg PO HS [facility] Last Admin: 12/24/16 21:50 Dose: 25.8 mg Sevelamer HCl (Renagel) 1,600 mg PO TID [facility] Last Admin: 12/25/16 10:25 Dose: 1,600 mg Topiramate (Topamax) 50 mg PO BID [facility] Last Admin: 12/25/16 10:26 Dose: 50 mg Vitamin B Complex/Vit C/Folic Acid (Nephro-Ajay) 1 tab PO DAILY [facility] Last Admin: 12/25/16 10:21 Dose: 1 tab - Labs Labs: 12/25/16 07:49 12/25/16 07:49 PT 15.3 Seconds (9.8-13.1) H 12/02/16 13:05 INR 1.4 (0.9-1.2) H 12/02/16 13:05 APTT 37.0 Seconds (25.6-37.1) 12/02/16 13:05 - Constitutional Appears: No Acute Distress - Head Exam Head Exam: NORMAL INSPECTION - Eye Exam Eye Exam: Normal appearance - ENT Exam ENT Exam: Mucous Membranes Moist, Normal Oropharynx - Neck Exam Neck Exam: Normal Inspection Additional comments: No nodes or thyromegay. - Respiratory Exam Respiratory Exam: Clear to Ausculation Bilateral, NORMAL BREATHING PATTERN - Cardiovascular Exam Cardiovascular Exam: REGULAR RHYTHM, +S1, +S2 - GI/Abdominal Exam GI & Abdominal Exam: Soft - Extremities Exam Additional comments: Dressings intact. 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
--- NOTE | 2016-12-25 13:29 | CP.PCM.PN ---
Subjective - Date & Time of Evaluation Date of Evaluation: 12/25/16 Time of Evaluation: 13:27 - Subjective Subjective: Patient just completed hemodialysis And tolerated very good Ultrafiltration about 2500 mL Vital signs stable Objective - Vital Signs/Intake and Output Vital Signs (last 24 hours): Temp Pulse Resp BP Pulse Ox 98.5 F 115 H 20 174/74 H 95 12/25/16 07:34 12/25/16 07:34 12/25/16 07:34 12/25/16 07:34 12/25/16 07:34 - Medications Medications: Current Medications Acetaminophen (Tylenol 325mg Tab) 650 mg PO Q4 PRN PRN Reason: Fever >100.4 F Last Admin: 12/25/16 10:27 Dose: 650 mg Acetaminophen (Tylenol 325mg Tab) 650 mg PO Q4 PRN PRN Reason: Pain, moderate (4-7) Last Admin: 12/24/16 13:56 Dose: 650 mg Albuterol Sulfate (Albuterol 0.083% Inhal Barbie (2.5 Mg/3 Ml) Ud) 2.5 mg INH RQ4 PRN PRN Reason: Shortness of Breath Albuterol/Ipratropium (Duoneb 3 Mg/0.5 Mg (3 Ml) Ud) 3 ml INH RQ4 PRN PRN Reason: Shortness of Breath Last Admin: 11/11/16 07:39 Dose: 3 ml Apixaban (Eliquis) 5 mg PO BID [facility] PRN Reason: Protocol Last Admin: 12/25/16 10:19 Dose: 5 mg Aspirin (Ecotrin) 81 mg PO DAILY [facility] Last Admin: 12/25/16 10:18 Dose: 81 mg Atorvastatin Calcium (Lipitor) 40 mg PO DAILY [facility] Last Admin: 12/25/16 10:20 Dose: 40 mg Benzocaine/Menthol (Cepacol Sore Throat) 1 mindi PO Q2 PRN PRN Reason: Sore Throat Last Admin: 12/25/16 06:13 Dose: 1 mindi Benzonatate (Tessalon Perles) 200 mg PO TID PRN PRN Reason: Cough Last Admin: 12/18/16 10:42 Dose: 200 mg Calcium Carbonate (Oscal) 500 mg PO BIDWM [facility] Last Admin: 12/25/16 10:22 Dose: 500 mg Cinacalcet (Sensipar) 30 mg PO DAILY [facility] Last Admin: 12/25/16 10:26 Dose: 30 mg Collagenase (Santyl) 1 applic TOP DAILY [facility] Last Admin: 12/24/16 10:28 Dose: 1 applic Diphenhydramine HCl (Benadryl) 25 mg PO Q6 PRN PRN Reason: Itching / Pruritus Last Admin: 12/17/16 09:53 Dose: 25 mg Docusate Sodium (Colace) 100 mg PO BID [facility] Last Admin: 12/25/16 10:12 Dose: 100 mg Epoetin Tha (Procrit) 20,000 unit IV [facility] [place] Last Admin: 12/25/16 10:25 Dose: 20,000 unit Ergocalciferol (Drisdol 50,000 Intl Units Cap) 1 cap PO WED [facility] Last Admin: 12/25/16 10:18 Dose: 1 cap Fluconazole (Diflucan) 100 mg PO DAILY [facility] Last Admin: 12/25/16 10:17 Dose: 100 mg Gabapentin (Neurontin) 300 mg PO TID [facility] Last Admin: 12/25/16 10:21 Dose: 300 mg Hydrocortisone (Anusol-Hc) 1 applic [place] BID PRN PRN Reason: Inflammation Hydromorphone HCl (Dilaudid) 1 mg IVP Q4H PRN PRN Reason: Pain, severe (8-10) Last Admin: 12/24/16 20:15 Dose: 1 mg Meropenem 500 mg/ Sodium (Chloride) 100 mls @ 100 mls/hr IVPB DAILY@0100 [facility] Last Admin: 12/25/16 01:03 Dose: 100 mls/hr Gentamicin Sulfate/Sodium Chloride (Gentamicin 100mg/100ml Ns) 100 mg in 100 mls @ 100 mls/hr IVPB [facility] [place] Last Admin: 12/25/16 10:15 Dose: 100 mls/hr Tigecycline 25 mg/ Sodium (Chloride) 100 mls @ 100 mls/hr IVPB Q12 [facility] Last Admin: 12/25/16 10:27 Dose: 100 mls/hr Sodium Chloride (Sodium Chloride 0.45%) 500 mls @ 10 mls/hr IV .Q24H [facility] Last Admin: 12/24/16 17:01 Dose: Not Given Iron Sucrose 100 mg/ Sodium (Chloride) 105 mls @ 105 mls/hr IVPB [facility] [place] Stop: 12/30/16 09:59 Last Admin: 12/25/16 11:13 Dose: 105 mls/hr Daptomycin 650 mg/ Sodium (Chloride) 100 mls @ 100 mls/hr IVPB [facility] [place] Stop: 01/15/17 09:59 Last Admin: 12/25/16 11:12 Dose: 100 mls/hr Nystatin (Nystop Topical Powder) 1 applic TOP BID [facility] Last Admin: 12/25/16 10:22 Dose: Not Given Ondansetron HCl (Zofran Inj) 4 mg IVP Q6 PRN PRN Reason: Nausea/Vomiting Last Admin: 09/19/16 10:26 Dose: 4 mg Pantoprazole Sodium (Protonix Ec Tab) 40 mg PO DAILY [facility] Last Admin: 12/25/16 10:25 Dose: 40 mg Repaglinide (Prandin) 0.5 mg PO TIDAC [facility] Last Admin: 12/25/16 10:23 Dose: 0.5 mg Sennosides (Senokot Tab) 25.8 mg PO HS [facility] Last Admin: 12/24/16 21:50 Dose: 25.8 mg Sevelamer HCl (Renagel) 1,600 mg PO TID [facility] Last Admin: 12/25/16 10:25 Dose: 1,600 mg Topiramate (Topamax) 50 mg PO BID [facility] Last Admin: 12/25/16 10:26 Dose: 50 mg Vitamin B Complex/Vit C/Folic Acid (Nephro-Ajay) 1 tab PO DAILY [facility] Last Admin: 12/25/16 10:21 Dose: 1 tab - Labs Labs: 12/25/16 07:49 12/25/16 07:49 PT 15.3 Seconds (9.8-13.1) H 12/02/16 13:05 INR 1.4 (0.9-1.2) H 12/02/16 13:05 APTT 37.0 Seconds (25.6-37.1) 12/02/16 13:05 - Constitutional Appears: No Acute Distress - ENT Exam ENT Exam: Mucous Membranes Moist - Respiratory Exam Respiratory Exam: absent: Chest Wall Tenderness - GI/Abdominal Exam GI & Abdominal Exam: Normal Bowel Sounds. absent: Guarding - Extremities Exam Extremities Exam: absent: Calf Tenderness - Back Exam Back Exam: absent: CVA tenderness (L), CVA tenderness (R) - Neurological Exam Neurological Exam: Alert Assessment and Plan (1) ESRD (end stage renal disease) Assessment & Plan: End stage renal disease patient just about to complete hemodialysis now tolerating well Continue the same as per primary team Continue Venofer for 5 doses Status: Chronic (2) Cellulitis of leg Status: Chronic
[2016-12-25] MEDS: Santyl Collagenase OINTMENT TOP SCH (16:27)
--- NOTE | 2016-12-25 18:15 | PN ---
DATE: ENDO FOLLOWUP NOTE LOCATION: Room 661. SUBJECTIVE: This is a 46-year-old female with known history of type 2 diabetes, currently receiving low dose oral hypoglycemic drug therapy as given. Her oral intake remains variable, but has improved as noted by the nursing staff. Her glycemic levels are been low normal as noted overnight with glucose level ranging from 75 to 89 and 104 mg/dL. Her latest chemistries showed BUN of 53, sodium 136, potassium 4.6, chloride 102, CO2 of 21, glucose 77 and creatinine 5.9. So, at this time, we will continue the low dose oral hypoglycemic therapy given as Prandin 0.5 mg p.o. t.i.d. with meals as ordered. We will titrate incremental as indicated to optimize metabolic control. We will follow and advice accordingly. Irene Ambrose MD
--- NOTE | 2016-12-25 23:16 | CP.PCM.PN ---
Subjective - Date & Time of Evaluation Date of Evaluation: 12/25/16 Time of Evaluation: 20:00 - Subjective Subjective: Patient is suffering from sore throat, but her WBCs are normal, suggesting a non bacterial causes. She received Hemodialysis. She is having mildly elevated ALP There is no seizures. Objective - Vital Signs/Intake and Output Vital Signs (last 24 hours): Temp Pulse Resp BP Pulse Ox 98.8 F 112 H 18 142/81 94 L 12/25/16 16:16 12/25/16 16:16 12/25/16 16:16 12/25/16 16:16 12/25/16 16:16 - Medications Medications: Current Medications Acetaminophen (Tylenol 325mg Tab) 650 mg PO Q4 PRN PRN Reason: Fever >100.4 F Last Admin: 12/25/16 10:27 Dose: 650 mg Acetaminophen (Tylenol 325mg Tab) 650 mg PO Q4 PRN PRN Reason: Pain, moderate (4-7) Last Admin: 12/24/16 13:56 Dose: 650 mg Albuterol Sulfate (Albuterol 0.083% Inhal Barbie (2.5 Mg/3 Ml) Ud) 2.5 mg INH RQ4 PRN PRN Reason: Shortness of Breath Albuterol/Ipratropium (Duoneb 3 Mg/0.5 Mg (3 Ml) Ud) 3 ml INH RQ4 PRN PRN Reason: Shortness of Breath Last Admin: 11/11/16 07:39 Dose: 3 ml Apixaban (Eliquis) 5 mg PO BID [facility] PRN Reason: Protocol Last Admin: 12/25/16 16:24 Dose: 5 mg Aspirin (Ecotrin) 81 mg PO DAILY [facility] Last Admin: 12/25/16 10:18 Dose: 81 mg Atorvastatin Calcium (Lipitor) 40 mg PO DAILY [facility] Last Admin: 12/25/16 10:20 Dose: 40 mg Benzocaine/Menthol (Cepacol Sore Throat) 1 mindi PO Q2 PRN PRN Reason: Sore Throat Last Admin: 12/25/16 20:17 Dose: 1 mindi Benzonatate (Tessalon Perles) 200 mg PO TID PRN PRN Reason: Cough Last Admin: 12/18/16 10:42 Dose: 200 mg Calcium Carbonate (Oscal) 500 mg PO BIDWM [facility] Last Admin: 12/25/16 16:25 Dose: 500 mg Cinacalcet (Sensipar) 30 mg PO DAILY [facility] Last Admin: 12/25/16 10:26 Dose: 30 mg Collagenase (Santyl) 1 applic TOP DAILY [facility] Last Admin: 12/25/16 16:27 Dose: 1 applic Diphenhydramine HCl (Benadryl) 25 mg PO Q6 PRN PRN Reason: Itching / Pruritus Last Admin: 12/17/16 09:53 Dose: 25 mg Docusate Sodium (Colace) 100 mg PO BID [facility] Last Admin: 12/25/16 16:23 Dose: 100 mg Epoetin [facility]a (Procrit) [facility] Last Admin: 12/25/16 10:25 Dose: 20,000 unit Ergocalciferol (Drisdol 50,000 Intl Units Cap) 1 cap PO WED [facility] Last Admin: 12/25/16 10:18 Dose: 1 cap Fluconazole (Diflucan) 100 mg PO DAILY [facility] Last Admin: 12/25/16 10:17 Dose: 100 mg Gabapentin (Neurontin) 300 mg PO TID [facility] Last Admin: 12/25/16 16:24 Dose: 300 mg Hydrocortisone (Anusol-Hc) 1 applic [place] BID PRN PRN Reason: Inflammation Hydromorphone HCl (Dilaudid) 1 mg IVP Q4H PRN PRN Reason: Pain, severe (8-10) Last Admin: 12/25/16 16:16 Dose: 1 mg Meropenem 500 mg/ Sodium (Chloride) 100 mls @ 100 mls/hr IVPB DAILY@0100 [facility] Last Admin: 12/25/16 01:03 Dose: 100 mls/hr Gentamicin Sulfate/Sodium Chloride (Gentamicin 100mg/100ml Ns) 100 mg in 100 mls @ 100 mls/hr IVPB MWF [facility] Last Admin: 12/25/16 10:15 Dose: 100 mls/hr Tigecycline 25 mg/ Sodium (Chloride) 100 mls @ 100 mls/hr IVPB Q12 [facility] Last Admin: 12/25/16 20:28 Dose: 100 mls/hr Sodium Chloride (Sodium Chloride 0.45%) 500 mls @ 10 mls/hr IV .Q24H [facility] Last Admin: 12/25/16 16:30 Dose: 10 mls/hr Iron Sucrose 100 mg/ Sodium (Chloride) 105 mls @ 105 mls/hr [place] [facility] [place] Stop: 12/30/16 09:59 Last Admin: 12/25/16 11:13 Dose: 105 mls/hr Daptomycin 650 mg/ Sodium (Chloride) 100 mls @ 100 mls/hr [place] [facility] [place] Stop: 01/15/17 09:59 Last Admin: 12/25/16 11:12 Dose: 100 mls/hr Nystatin (Nystop Topical Powder) 1 applic TOP BID [facility] Last Admin: 12/25/16 16:25 Dose: Not Given Ondansetron HCl (Zofran Inj) 4 mg IVP Q6 PRN PRN Reason: Nausea/Vomiting Last Admin: 09/19/16 10:26 Dose: 4 mg Pantoprazole Sodium (Protonix Ec Tab) 40 mg PO DAILY [facility] [place] Last Admin: 12/25/16 10:25 Dose: 40 mg Repaglinide (Prandin) 0.5 mg PO TIDAC [facility] [place] Last Admin: 12/25/16 16:25 Dose: 0.5 mg Sennosides (Senokot Tab) 25.8 mg PO HS [facility] Last Admin: 12/25/16 22:18 Dose: 25.8 mg Sevelamer HCl (Renagel) 1,600 mg PO TID [facility] [place] Last Admin: 12/25/16 16:26 Dose: 1,600 mg Topiramate (Topamax) 50 mg PO BID [facility] [place] Last Admin: 12/25/16 16:26 Dose: 50 mg Vitamin B Complex/Vit C/Folic Acid (Nephro-Ajay) 1 tab PO DAILY [facility] [place] Last Admin: 12/25/16 10:21 Dose: 1 tab - Labs Labs: 12/25/16 07:49 12/25/16 07:49 PT 15.3 Seconds (9.8-13.1) H 12/02/16 13:05 INR 1.4 (0.9-1.2) H 12/02/16 13:05 APTT 37.0 Seconds (25.6-37.1) 12/02/16 13:05 Assessment and Plan (1) Diabetes Status: Chronic (2) ESRD (end stage renal disease) Status: Chronic (3) Cellulitis of leg Status: Chronic (4) Hyperlipidemia Status: Chronic (5) Back pain Status: Acute (6) Bacteremia due to Gram-negative bacteria Status: Acute (7) Diabetes mellitus type 2 with peripheral artery disease Status: Chronic (8) PVD (peripheral vascular disease) Status: Chronic (9) Osteomyelitis of right leg Status: Acute
[2016-12-26] MEDS: Meropenem 500 MG in Sodium Chloride 0.9% 100 ML IVPB SCH (00:04)
[2016-12-26] MEDS: Albuterol-Ipratrop 3 mg / 0.5 (3 ml) UD INH PRN ×2 (00:13→05:33)
[2016-12-26] MEDS ORDERED: Levalbuterol 0.63 MG/3 ML Inhal Soln UD INH PRN (09:27)
--- NOTE | 2016-12-26 09:40 | CP.PCM.PN ---
Subjective - Date & Time of Evaluation Date of Evaluation: 12/26/16 Time of Evaluation: 09:29 - Subjective Subjective: Interim events noted. Case discussed with cardiology and PMD. Transferred to ICU because of SVT and successfully converted back to NSR. Presently feels well. Relates having 'caught a cold' a few days ago. Has been having cough with clear mucoid expectorate. Also having nasal congestion and occassional audible wheeze, but not SOB. CXR done today much as the one last done over a month ago. Poor inspiration with mild vascular congestion, no effusion or consolidation. On exam there is no dullness to percussion. Breath sounds are well heard bilaterally. Few scattered rhonchi w/o wheezes or bronchial breathing. Rare dry rales in lower lobes posteriorly. Pharynx is pink and moist w/o exudate. Neck is supple and trachea midline. SVT, may have been result of beta-adrenergic stimulation from aerosol treatment. Successfully reverted back to NSR, slightly tachycardic. Will use low dose levalbuterol only when needed. Thanks, Objective - Vital Signs/Intake and Output Vital Signs (last 24 hours): Temp Pulse Resp BP Pulse Ox 98.9 F 158 H 18 104/55 L 95 12/26/16 07:48 12/26/16 07:48 12/26/16 07:48 12/26/16 07:48 12/26/16 07:48 - Medications Medications: Current Medications Acetaminophen (Tylenol 325mg Tab) 650 mg PO Q4 PRN PRN Reason: Fever >100.4 F Last Admin: 12/25/16 10:27 Dose: 650 mg Acetaminophen (Tylenol 325mg Tab) 650 mg PO Q4 PRN PRN Reason: Pain, moderate (4-7) Last Admin: 12/26/16 05:14 Dose: 650 mg Apixaban (Eliquis) 5 mg PO BID [facility] PRN Reason: Protocol Last Admin: 12/25/16 16:24 Dose: 5 mg Aspirin (Ecotrin) 81 mg PO DAILY [facility] Last Admin: 12/25/16 10:18 Dose: 81 mg Atorvastatin Calcium (Lipitor) 40 mg PO DAILY [facility] Last Admin: 12/25/16 10:20 Dose: 40 mg Benzocaine/Menthol (Cepacol Sore Throat) 1 mindi PO Q2 PRN PRN Reason: Sore Throat Last Admin: 12/25/16 20:17 Dose: 1 mindi Benzonatate (Tessalon Perles) 200 mg PO TID PRN PRN Reason: Cough Last Admin: 12/18/16 10:42 Dose: 200 mg Calcium Carbonate (Oscal) 500 mg PO BIDWM [facility] Last Admin: 12/25/16 16:25 Dose: 500 mg Cinacalcet (Sensipar) 30 mg PO DAILY [facility] Last Admin: 12/25/16 10:26 Dose: 30 mg Collagenase (Santyl) 1 applic TOP DAILY [facility] Last Admin: 12/25/16 16:27 Dose: 1 applic Diphenhydramine HCl (Benadryl) 25 mg PO Q6 PRN PRN Reason: Itching / Pruritus Last Admin: 12/17/16 09:53 Dose: 25 mg Docusate Sodium (Colace) 100 mg PO BID [facility] Last Admin: 12/25/16 16:23 Dose: 100 mg Epoetin Tha (Procrit) 20,000 unit IV [facility] Last Admin: 12/25/16 10:25 Dose: 20,000 unit Ergocalciferol (Drisdol 50,000 Intl Units Cap) 1 cap PO WED [facility] Last Admin: 12/25/16 10:18 Dose: 1 cap Fluconazole (Diflucan) 100 mg PO DAILY [facility] Last Admin: 12/25/16 10:17 Dose: 100 mg Gabapentin (Neurontin) 300 mg PO TID [facility] Last Admin: 12/25/16 16:24 Dose: 300 mg Hydrocortisone (Anusol-Hc) 1 applic [place] BID PRN PRN Reason: Inflammation Hydromorphone HCl (Dilaudid) 1 mg IVP Q4H PRN PRN Reason: Pain, severe (8-10) Last Admin: 12/26/16 08:54 Dose: 1 mg Meropenem 500 mg/ Sodium (Chloride) 100 mls @ 100 mls/hr IVPB DAILY@0100 [facility] Last Admin: 12/26/16 00:04 Dose: 100 mls/hr Gentamicin Sulfate/Sodium Chloride (Gentamicin 100mg/100ml Ns) 100 mg in 100 mls @ 100 mls/hr IVPB MWF [facility] Last Admin: 12/25/16 10:15 Dose: 100 mls/hr Tigecycline 25 mg/ Sodium (Chloride) 100 mls @ 100 mls/hr IVPB Q12 [facility] Last Admin: 12/25/16 20:28 Dose: 100 mls/hr Sodium Chloride (Sodium Chloride 0.45%) 500 mls @ 10 mls/hr IV .Q24H [facility] Last Admin: 12/25/16 16:30 Dose: 10 mls/hr Iron Sucrose 100 mg/ Sodium (Chloride) 105 mls @ 105 mls/hr IVPB [facility] [place] Stop: 12/30/16 09:59 Last Admin: 12/25/16 11:13 Dose: 105 mls/hr Daptomycin 650 mg/ Sodium (Chloride) 100 mls @ 100 mls/hr IVPB [facility] [place] Stop: 01/15/17 09:59 Last Admin: 12/25/16 11:12 Dose: 100 mls/hr Levalbuterol HCl (Xopenex) 0.63 mg INH Q6H PRN PRN Reason: Shortness of Breath Nystatin (Nystop Topical Powder) 1 applic TOP BID [facility] Last Admin: 12/25/16 16:25 Dose: Not Given Ondansetron HCl (Zofran Inj) 4 mg IVP Q6 PRN PRN Reason: Nausea/Vomiting Last Admin: 09/19/16 10:26 Dose: 4 mg Pantoprazole Sodium (Protonix Ec Tab) 40 mg PO DAILY [facility] Last Admin: 12/25/16 10:25 Dose: 40 mg Repaglinide (Prandin) 0.5 mg PO TIDAC [facility] Last Admin: 12/25/16 16:25 Dose: 0.5 mg Sennosides (Senokot Tab) 25.8 mg PO HS [facility] Last Admin: 12/25/16 22:18 Dose: 25.8 mg Sevelamer HCl (Renagel) 1,600 mg PO TID [facility] Last Admin: 12/25/16 16:26 Dose: 1,600 mg Topiramate (Topamax) 50 mg PO BID [facility] Last Admin: 12/25/16 16:26 Dose: 50 mg Vitamin B Complex/Vit C/Folic Acid (Nephro-Ajay) 1 tab PO DAILY [facility] Last Admin: 12/25/16 10:21 Dose: 1 tab - Labs Labs: 12/25/16 07:49 12/25/16 07:49 PT 15.3 Seconds (9.8-13.1) H 12/02/16 13:05 INR 1.4 (0.9-1.2) H 12/02/16 13:05 APTT 37.0 Seconds (25.6-37.1) 12/02/16 13:05
--- NOTE | 2016-12-26 09:43 | CP.PCM.PN ---
Subjective - Date & Time of Evaluation Date of Evaluation: 12/26/16 Time of Evaluation: 09:29 - Subjective Subjective: Patient seen in ICU. Patient developed tachycardia to 160 this morning. She had no chest pain or dyspnea. However, she developed a scratchy throat 2 days ago and a non- productive cough. She was given albuterol by nebulizer last night an again this morning. Her blood pressure remained around 100 systolic. There was no nausea or diaphoresis. The other new event was phantom limb pain in the right lower extremity beginning a few days ago. She is already on gabapentin. On occasion she has required Dilaudid for this pain. Electrocardiogram revealed sinus tachycardia at 157. CXR (poor inspiration) showed no infiltrates. She was evaluated by Drs. Shepard and Mark. She was transferred to the ICU where Dr. Bojorquez administered iv adenosine, after which she reverted to normal sinus rhythm at aroun 120 with an occasional PAC. Dr. Flores has changed her nebulizer therapy to low dose Xopenex - to be given only if absolutely necessary for bronchospasm. Dr. Richard Shepard discussed the possibility of using a beta-katiuska to control her heart rate - because there is no allergy to beta-blockers, but only the small risk of arterial vasospasm. Pulmonary embolus is unlikely because there is no dyspnea. The oxygen saturation is 100% on room air. She is already anticoagulated on Eliquis and aspirin. Currently, the patient is comfortable and eating breakfast. We expect to transfer patient back to regular med-surg floor shortly. Dr. Mccormack plans to change wound vac tomorrow. Objective - Vital Signs/Intake and Output Vital Signs (last 24 hours): Temp Pulse Resp BP Pulse Ox 98.9 F 158 H 18 104/55 L 95 12/26/16 07:48 12/26/16 07:48 12/26/16 07:48 12/26/16 07:48 12/26/16 07:48 Currently at 10:02 hours: Puse 129 BP 157/45 Resp 15 Oxygen sat 100 % RA - Medications Medications: Current Medications Acetaminophen (Tylenol 325mg Tab) 650 mg PO Q4 PRN PRN Reason: Fever >100.4 F Last Admin: 12/25/16 10:27 Dose: 650 mg Acetaminophen (Tylenol 325mg Tab) 650 mg PO Q4 PRN PRN Reason: Pain, moderate (4-7) Last Admin: 12/26/16 05:14 Dose: 650 mg Apixaban (Eliquis) 5 mg PO BID [facility] PRN Reason: Protocol Last Admin: 12/25/16 16:24 Dose: 5 mg Aspirin (Ecotrin) 81 mg PO DAILY [facility] Last Admin: 12/25/16 10:18 Dose: 81 mg Atorvastatin Calcium (Lipitor) 40 mg PO DAILY [facility] Last Admin: 12/25/16 10:20 Dose: 40 mg Benzocaine/Menthol (Cepacol Sore Throat) 1 mindi PO Q2 PRN PRN Reason: Sore Throat Last Admin: 12/25/16 20:17 Dose: 1 mindi Benzonatate (Tessalon Perles) 200 mg PO TID PRN PRN Reason: Cough Last Admin: 12/18/16 10:42 Dose: 200 mg Calcium Carbonate (Oscal) 500 mg PO BIDWM [facility] Last Admin: 12/25/16 16:25 Dose: 500 mg Cinacalcet (Sensipar) 30 mg PO DAILY [facility] Last Admin: 12/25/16 10:26 Dose: 30 mg Collagenase (Santyl) 1 applic TOP DAILY [facility] Last Admin: 12/25/16 16:27 Dose: 1 applic Diphenhydramine HCl (Benadryl) 25 mg PO Q6 PRN PRN Reason: Itching / Pruritus Last Admin: 12/17/16 09:53 Dose: 25 mg Docusate Sodium (Colace) 100 mg PO BID [facility] Last Admin: 12/25/16 16:23 Dose: 100 mg Epoetin Tha (Procrit) 20,000 unit IV MWF [facility] Last Admin: 12/25/16 10:25 Dose: 20,000 unit Ergocalciferol (Drisdol 50,000 Intl Units Cap) 1 cap PO WED [facility] Last Admin: 12/25/16 10:18 Dose: 1 cap Fluconazole (Diflucan) 100 mg PO DAILY [facility] Last Admin: 12/25/16 10:17 Dose: 100 mg Gabapentin (Neurontin) 300 mg PO TID [facility] Last Admin: 12/25/16 16:24 Dose: 300 mg Hydrocortisone (Anusol-Hc) 1 applic [place] BID PRN PRN Reason: Inflammation Hydromorphone HCl (Dilaudid) 1 mg IVP Q4H PRN PRN Reason: Pain, severe (8-10) Last Admin: 12/26/16 08:54 Dose: 1 mg Meropenem 500 mg/ Sodium (Chloride) 100 mls @ 100 mls/hr IVPB DAILY@0100 [facility] Last Admin: 12/26/16 00:04 Dose: 100 mls/hr Gentamicin Sulfate/Sodium Chloride (Gentamicin 100mg/100ml Ns) 100 mg in 100 mls @ 100 mls/hr [place] [facility] Last Admin: 12/25/16 10:15 Dose: 100 mls/hr Tigecycline 25 mg/ Sodium (Chloride) 100 mls @ 100 mls/hr IVPB Q12 [facility] Last Admin: 12/25/16 20:28 Dose: 100 mls/hr Sodium Chloride (Sodium Chloride 0.45%) 500 mls @ 10 mls/hr IV .Q24H [facility] Last Admin: 12/25/16 16:30 Dose: 10 mls/hr Iron Sucrose 100 mg/ Sodium (Chloride) 105 mls @ 105 mls/hr IVPB [facility] Stop: 12/30/16 09:59 Last Admin: 12/25/16 11:13 Dose: 105 mls/hr Daptomycin 650 mg/ Sodium (Chloride) 100 mls @ 100 mls/hr IVPB [facility] Stop: 01/15/17 09:59 Last Admin: 12/25/16 11:12 Dose: 100 mls/hr Levalbuterol HCl (Xopenex) 0.63 mg INH Q6H PRN PRN Reason: Shortness of Breath Nystatin (Nystop Topical Powder) 1 applic TOP BID [facility] Last Admin: 12/25/16 16:25 Dose: Not Given Ondansetron HCl (Zofran Inj) 4 mg IVP Q6 PRN PRN Reason: Nausea/Vomiting Last Admin: 09/19/16 10:26 Dose: 4 mg Pantoprazole Sodium (Protonix Ec Tab) 40 mg PO DAILY [facility] Last Admin: 12/25/16 10:25 Dose: 40 mg Repaglinide (Prandin) 0.5 mg PO TIDAC [facility] Last Admin: 12/25/16 16:25 Dose: 0.5 mg Sennosides (Senokot Tab) 25.8 mg PO HS [facility] Last Admin: 12/25/16 22:18 Dose: 25.8 mg Sevelamer HCl (Renagel) 1,600 mg PO TID [facility] Last Admin: 12/25/16 16:26 Dose: 1,600 mg Topiramate (Topamax) 50 mg PO BID [facility] Last Admin: 12/25/16 16:26 Dose: 50 mg Vitamin B Complex/Vit C/Folic Acid (Nephro-Ajay) 1 tab PO DAILY [facility] Last Admin: 12/25/16 10:21 Dose: 1 tab - Labs Labs: 12/25/16 07:49 12/25/16 07:49 PT 15.3 Seconds (9.8-13.1) H 12/02/16 13:05 INR 1.4 (0.9-1.2) H 12/02/16 13:05 APTT 37.0 Seconds (25.6-37.1) 12/02/16 13:05 Transaminases normal CPK (done 12/23/16) = 39 (WNL) Throat culture: no group A beta-strep. - Constitutional Appears: No Acute Distress - ENT Exam ENT Exam: Mucous Membranes Moist - Neck Exam Neck Exam: Normal Inspection Additional comments: Right subclavian Permacath intact. - Respiratory Exam Respiratory Exam: Clear to Ausculation Bilateral, NORMAL BREATHING PATTERN - Cardiovascular Exam Cardiovascular Exam: Tachycardia, REGULAR RHYTHM, +S1, +S2 Additional comments: Occasional PMB's - GI/Abdominal Exam GI & Abdominal Exam: Soft - Extremities Exam Additional comments: Right BK dressing - wound vac intact. R patellar dressing intact. Left femoral vein PICC line intact. All other extremitie as before. - Back Exam Back Exam: NORMAL INSPECTION - Neurological Exam Neurological Exam: Alert, CN II-XII Intact, Oriented x3 - Psychiatric Exam Psychiatric exam: Normal Affect, Normal Mood - Skin Skin Exam: Normal Color, Warm Assessment and Plan (1) Supraventricular tachycardia Assessment & Plan: Treated with adenosine and patient is now in sinus tachycardia. See subjective for considerations going forward. Status: Acute (2) Status post below knee amputation of right lower extremity Assessment & Plan: Making slow progress. Dr. Mccormack will change the wound vac tomorrow. Status: Acute (3) ESRD (end stage renal disease) on dialysis Status: Chronic (4) DM type 2 (diabetes mellitus, type 2) Assessment & Plan: Status: Chronic (5) Coagulopathy Assessment & Plan: Controlled. Status: Chronic (6) Peripheral arterial occlusive disease Assessment & Plan: Discussed with Dr. Richard Shepard the risk of peripheral vasoconstriction by beta- blockers. If we need to control heart rate, it may be necessary to use low dose beta-blockers in preference to other agents with other side effects. Status: Chronic
--- NOTE | 2016-12-26 10:37 | CP.PCM.PN ---
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 Bojorquez) Responded to 12 mg of Adenosin IV with reverting to sinus rhythm Remained hemodynamically stable To return to her room after 3 hrs of observation Discussed use of Albuterol with Dr. Flores and Rafal Objective - Vital Signs/Intake and Output Vital Signs (last 24 hours): Temp Pulse Resp BP Pulse Ox 98.9 F 158 H 18 104/55 L 95 12/26/16 07:48 12/26/16 07:48 12/26/16 07:48 12/26/16 07:48 12/26/16 07:48 - Medications Medications: Current Medications Acetaminophen (Tylenol 325mg Tab) 650 mg PO Q4 PRN PRN Reason: Fever >100.4 F Last Admin: 12/25/16 10:27 Dose: 650 mg Acetaminophen (Tylenol 325mg Tab) 650 mg PO Q4 PRN PRN Reason: Pain, moderate (4-7) Last Admin: 12/26/16 05:14 Dose: 650 mg Apixaban (Eliquis) 5 mg PO BID [facility] PRN Reason: Protocol Last Admin: 12/25/16 16:24 Dose: 5 mg Aspirin (Ecotrin) 81 mg PO DAILY [facility] [place] Last Admin: 12/25/16 10:18 Dose: 81 mg Atorvastatin Calcium (Lipitor) 40 mg PO DAILY [facility] [place] Last Admin: 12/25/16 10:20 Dose: 40 mg Benzocaine/Menthol (Cepacol Sore Throat) 1 mindi PO Q2 PRN PRN Reason: Sore Throat Last Admin: 12/25/16 20:17 Dose: 1 mindi Benzonatate (Tessalon Perles) 200 mg PO TID PRN PRN Reason: Cough Last Admin: 12/18/16 10:42 Dose: 200 mg Calcium Carbonate (Oscal) 500 mg PO BIDWM [facility] [place] Last Admin: 12/25/16 16:25 Dose: 500 mg Cinacalcet (Sensipar) 30 mg PO DAILY [facility] [place] Last Admin: 12/25/16 10:26 Dose: 30 mg Collagenase (Santyl) 1 applic TOP DAILY [facility] [place] Last Admin: 12/25/16 16:27 Dose: 1 applic Diphenhydramine HCl (Benadryl) 25 mg PO Q6 PRN PRN Reason: Itching / Pruritus Last Admin: 12/17/16 09:53 Dose: 25 mg Docusate Sodium (Colace) 100 mg PO BID [facility] Last Admin: 12/25/16 16:23 Dose: 100 mg Epoetin Tha (Procrit) 20,000 unit IV [facility] Last Admin: 12/25/16 10:25 Dose: 20,000 unit Ergocalciferol (Drisdol 50,000 Intl Units Cap) 1 cap PO WED [facility] Last Admin: 12/25/16 10:18 Dose: 1 cap Fluconazole (Diflucan) 100 mg PO DAILY [facility] [place] Last Admin: 12/25/16 10:17 Dose: 100 mg Gabapentin (Neurontin) 300 mg PO TID [facility] [place] Last Admin: 12/25/16 16:24 Dose: 300 mg Hydrocortisone (Anusol-Hc) 1 applic [place] BID PRN PRN Reason: Inflammation Hydromorphone HCl (Dilaudid) 1 mg IVP Q4H PRN PRN Reason: Pain, severe (8-10) Last Admin: 12/26/16 08:54 Dose: 1 mg Meropenem 500 mg/ Sodium (Chloride) 100 mls @ 100 mls/hr IVPB DAILY@0100 [facility] [place] Last Admin: 12/26/16 00:04 Dose: 100 mls/hr Gentamicin Sulfate/Sodium Chloride (Gentamicin 100mg/100ml Ns) 100 mg in 100 mls @ 100 mls/hr IVPB [facility] Last Admin: 12/25/16 10:15 Dose: 100 mls/hr Tigecycline 25 mg/ Sodium (Chloride) 100 mls @ 100 mls/hr IVPB Q12 [facility] [place] Last Admin: 12/25/16 20:28 Dose: 100 mls/hr Sodium Chloride (Sodium Chloride 0.45%) 500 mls @ 10 mls/hr IV .Q24H [facility] [place] Last Admin: 12/25/16 16:30 Dose: 10 mls/hr Iron Sucrose 100 mg/ Sodium (Chloride) 105 mls @ 105 mls/hr IVPB [facility] Stop: 12/30/16 09:59 Last Admin: 12/25/16 11:13 Dose: 105 mls/hr Daptomycin 650 mg/ Sodium (Chloride) 100 mls @ 100 mls/hr IVPB MWF [facility] [place] Stop: 01/15/17 09:59 Last Admin: 12/25/16 11:12 Dose: 100 mls/hr Levalbuterol HCl (Xopenex) 0.63 mg INH Q6H PRN PRN Reason: Shortness of Breath Nystatin (Nystop Topical Powder) 1 applic TOP BID [facility] [place] Last Admin: 12/25/16 16:25 Dose: Not Given Ondansetron HCl (Zofran Inj) 4 mg IVP Q6 PRN PRN Reason: Nausea/Vomiting Last Admin: 09/19/16 10:26 Dose: 4 mg Pantoprazole Sodium (Protonix Ec Tab) 40 mg PO DAILY [facility] [place] Last Admin: 12/25/16 10:25 Dose: 40 mg Repaglinide (Prandin) 0.5 mg PO TIDAC [facility] [place] Last Admin: 12/25/16 16:25 Dose: 0.5 mg Sennosides (Senokot Tab) 25.8 mg PO HS [facility] [place] Last Admin: 12/25/16 22:18 Dose: 25.8 mg Sevelamer HCl (Renagel) 1,600 mg PO TID [facility] [place] [place] Last Admin: 12/25/16 16:26 Dose: 1,600 mg Topiramate (Topamax) 50 mg PO BID [facility] [place] [place] Last Admin: 12/25/16 16:26 Dose: 50 mg Vitamin B Complex/Vit C/Folic Acid (Nephro-Ajay) 1 tab PO DAILY [facility] [place] [place] Last Admin: 12/25/16 10:21 Dose: 1 tab - Labs Labs: 12/25/16 07:49 12/25/16 07:49 PT 15.3 Seconds (9.8-13.1) H 12/02/16 13:05 INR 1.4 (0.9-1.2) H 12/02/16 13:05 APTT 37.0 Seconds (25.6-37.1) 12/02/16 13:05
[2016-12-26] MEDS: Multivitamin Vitamin B Complex (Nephro-Vite) Tab PO SCH (11:20)
[2016-12-26] MEDS: Pantoprazole 40 mg EC Tab PO SCH (11:20)
[2016-12-26] MEDS: TIGECYCLINE IVPB SCH ×2 (11:22→21:03)
[2016-12-26] MEDS: SODIUM CHLORIDE 0.9% IVPB SCH ×2 (11:22→21:03)
[2016-12-26] MEDS: Santyl Collagenase OINTMENT TOP SCH (14:15)
--- NOTE | 2016-12-26 15:09 | CP.PCM.PN ---
Subjective - Date & Time of Evaluation Date of Evaluation: 12/26/16 Time of Evaluation: 02:00 - Subjective Subjective: Seen in ICU Pt was tranferred to ICU this morning because she developed PSVT & had required adenosine Pt is alert. No c/o palp.sob,CP Objective - Vital Signs/Intake and Output Vital Signs (last 24 hours): Temp Pulse Resp BP Pulse Ox 98.9 F 158 H 18 104/55 L 95 12/26/16 07:48 12/26/16 07:48 12/26/16 07:48 12/26/16 07:48 12/26/16 07:48 - Medications Medications: Current Medications Acetaminophen (Tylenol 325mg Tab) 650 mg PO Q4 PRN PRN Reason: Fever >100.4 F Last Admin: 12/25/16 10:27 Dose: 650 mg Acetaminophen (Tylenol 325mg Tab) 650 mg PO Q4 PRN PRN Reason: Pain, moderate (4-7) Last Admin: 12/26/16 05:14 Dose: 650 mg Apixaban (Eliquis) 5 mg PO BID [facility] PRN Reason: Protocol Last Admin: 12/26/16 11:20 Dose: 5 mg Aspirin (Ecotrin) 81 mg PO DAILY [facility] Last Admin: 12/26/16 11:21 Dose: 81 mg Atorvastatin Calcium (Lipitor) 40 mg PO DAILY [facility] Last Admin: 12/26/16 11:21 Dose: 40 mg Benzocaine/Menthol (Cepacol Sore Throat) 1 mindi PO Q2 PRN PRN Reason: Sore Throat Last Admin: 12/25/16 20:17 Dose: 1 mindi Benzonatate (Tessalon Perles) 200 mg PO TID PRN PRN Reason: Cough Last Admin: 12/18/16 10:42 Dose: 200 mg Calcium Carbonate (Oscal) 500 mg PO BIDWM [facility] Last Admin: 12/26/16 11:21 Dose: 500 mg Cinacalcet (Sensipar) 30 mg PO DAILY [facility] Last Admin: 12/26/16 14:16 Dose: 30 mg Collagenase (Santyl) 1 applic TOP DAILY [facility] Last Admin: 12/26/16 14:15 Dose: 1 applic Diphenhydramine HCl (Benadryl) 25 mg PO Q6 PRN PRN Reason: Itching / Pruritus Last Admin: 12/17/16 09:53 Dose: 25 mg Docusate Sodium (Colace) 100 mg PO BID [facility] Last Admin: 12/25/16 16:23 Dose: 100 mg Epoetin Tha (Procrit) 20,000 unit IV [facility] Last Admin: 12/25/16 10:25 Dose: 20,000 unit Ergocalciferol (Drisdol 50,000 Intl Units Cap) 1 cap PO WED [facility] Last Admin: 12/25/16 10:18 Dose: 1 cap Fluconazole (Diflucan) 100 mg PO DAILY [facility] Last Admin: 12/26/16 11:20 Dose: 100 mg Gabapentin (Neurontin) 300 mg PO TID [facility] Last Admin: 12/26/16 14:13 Dose: 300 mg Hydrocortisone (Anusol-Hc) 1 applic [place] BID PRN PRN Reason: Inflammation Hydromorphone HCl (Dilaudid) 1 mg IVP Q4H PRN PRN Reason: Pain, severe (8-10) Last Admin: 12/26/16 08:54 Dose: 1 mg Meropenem 500 mg/ Sodium (Chloride) 100 mls @ 100 mls/hr IVPB DAILY@0100 [facility] Last Admin: 12/26/16 00:04 Dose: 100 mls/hr Gentamicin Sulfate/Sodium Chloride (Gentamicin 100mg/100ml Ns) 100 mg in 100 mls @ 100 mls/hr IVPB [facility] Last Admin: 12/25/16 10:15 Dose: 100 mls/hr Tigecycline 25 mg/ Sodium (Chloride) 100 mls @ 100 mls/hr IVPB Q12 [facility] Last Admin: 12/26/16 11:22 Dose: 100 mls/hr Sodium Chloride (Sodium Chloride 0.45%) 500 mls @ 10 mls/hr IV .Q24H [facility] Last Admin: 12/25/16 16:30 Dose: 10 mls/hr Iron Sucrose 100 mg/ Sodium (Chloride) 105 mls @ 105 mls/hr IVPB [facility] Stop: 12/30/16 09:59 Last Admin: 12/25/16 11:13 Dose: 105 mls/hr Daptomycin 650 mg/ Sodium (Chloride) 100 mls @ 100 mls/hr IVPB [facility] Stop: 01/15/17 09:59 Last Admin: 12/25/16 11:12 Dose: 100 mls/hr Levalbuterol HCl (Xopenex) 0.63 mg INH Q6H PRN PRN Reason: Shortness of Breath Nystatin (Nystop Topical Powder) 1 applic TOP BID [facility] Last Admin: 12/26/16 14:13 Dose: Not Given Ondansetron HCl (Zofran Inj) 4 mg IVP Q6 PRN PRN Reason: Nausea/Vomiting Last Admin: 09/19/16 10:26 Dose: 4 mg Pantoprazole Sodium (Protonix Ec Tab) 40 mg PO DAILY [facility] Last Admin: 12/26/16 11:20 Dose: 40 mg Repaglinide (Prandin) 0.5 mg PO TIDAC [facility] Last Admin: 12/26/16 14:14 Dose: 0.5 mg Sennosides (Senokot Tab) 25.8 mg PO HS [facility] Last Admin: 12/25/16 22:18 Dose: 25.8 mg Sevelamer HCl (Renagel) 1,600 mg PO TID [facility] Last Admin: 12/26/16 14:15 Dose: 1,600 mg Topiramate (Topamax) 50 mg PO BID [facility] Last Admin: 12/26/16 11:21 Dose: 50 mg Vitamin B Complex/Vit C/Folic Acid (Nephro-Ajay) 1 tab PO DAILY [facility] Last Admin: 12/26/16 11:20 Dose: 1 tab - Labs Labs: 12/25/16 07:49 12/25/16 07:49 PT 15.3 Seconds (9.8-13.1) H 12/02/16 13:05 INR 1.4 (0.9-1.2) H 12/02/16 13:05 APTT 37.0 Seconds (25.6-37.1) 12/02/16 13:05 - Respiratory Exam Additional comments: Lungs clear - Cardiovascular Exam Cardiovascular Exam: Tachycardia Additional comments: SVT 138/min - GI/Abdominal Exam GI & Abdominal Exam: Soft - Extremities Exam Additional comments: B/L BKA Assessment and Plan - Assessment and Plan (Free Text) Assessment: ESRD on HD. HD was tolerated well yesterday PSVT Rt stump wound infection Plan: Continue HD per schedule
[2016-12-26] MEDS ORDERED: Metoprolol 1 mg/ml Inj IVP ONE (15:16)
--- NOTE | 2016-12-26 15:39 | CP.CCUPN ---
CCU Subjective - Physician Review Subjective (Free Text): Ms. Leo transferred back to ICU for tachycardia, unclear if SVT versus other tachy-dysrythmia. She is asymptomatic otherwise, but just had routine albuterol neb treatment for brief difficulty breathing at bedrest. She is otherwise alert and non-distressed and emotional over return back to ICU for monitoring. HR 142 , in a regular narrow complex tachycardia, P waves not readily visible and EKG unrevealing as to underlying rhythm. Systolic BP is 143. Discussed with cardiology, will transfer back to ICU for monitoring and vasoactive medication if necessary. There are no mew significant findings on PE. After arrival to ICU, given Adenosine 6 mg via rapid IVP , followed by 12mg Adenosine Rapid IVP. With noting of underlying rhythm as sinus mechanism. Will monitor in ICU over the next several hours, if no further rate increase, will consider transfer back to regular Med Surg bed. If rhythm persists, would search for PTE: would get Troponins, repeat ECHO for any RA / RV enlargement, and consider CT Chest angio study or V/Q lung scan, as well as scanning lower extremities for DVT. Medication review shows that patient has been on Eliquis since 12/05/16.
--- NOTE | 2016-12-26 15:52 | RAD ---
HISTORY: Cough. COMPARISON: 10/15/2016. FINDINGS: LUNGS: No active pulmonary disease. PLEURA: No significant pleural effusion identified, no pneumothorax apparent. CARDIOVASCULAR: Joel for cardiac Venous access catheter in stable, satisfactory position. OSSEOUS STRUCTURES: No significant abnormalities. VISUALIZED UPPER ABDOMEN: Normal. OTHER FINDINGS: None. IMPRESSION: No active disease. No significant interval change compared to the prior examination(s).
--- NOTE | 2016-12-26 16:52 | CARD ---
APPROVED REPORT EKG Measurement Heart [id number] <Conclusion> Sinus tachycardia Rightward axis Low voltage QRS Cannot rule out Anterior infarct, age undetermined Abnormal ECG
--- NOTE | 2016-12-26 16:53 | CARD ---
APPROVED REPORT EKG Measurement Heart [id number] <Conclusion> Supraventricular tachycardia Rightward axis Nonspecific ST abnormality Abnormal ECG
[2016-12-26] MEDS ORDERED: Digoxin 500 mcg/2ml (0.5 mg/2ml) Inj IVP ONE (17:26)
[2016-12-26 17:50] VITALS: PULSE 132
--- NOTE | 2016-12-26 21:11 | PN ---
DATE: 12/26/2016 ENDO FOLLOWUP NOTE LOCATION: Room 661, [facility]. SUBJECTIVE: This is a 46-year-old female with recent uncontrolled type 2 diabetes, now being followed closely for metabolic management. She has been taken off all insulin therapy at this time and her glucose values have remained near optimal as noted. The latest chemistry showed a BUN of 53, sodium 136, potassium 4.6, chloride 102, CO2 of 21, glucose 77, and creatinine 5.9. The latest glucose fingerstick was 104 mg/dL. So at this time, we will continue the low dose oral hypoglycemic drug therapy as given with Prandin, given at 0.5 mg p.o. t.i.d. with meals as ordered. We will titrate incremental as indicated to optimize metabolic control. We will follow up with you. Irene Ambrose MD
--- NOTE | 2016-12-26 23:51 | CP.PCM.PN ---
Subjective - Date & Time of Evaluation Date of Evaluation: 12/26/16 Time of Evaluation: 20:35 - Subjective Subjective: She is in the ICU due to respiratory tightness and supra ventricular Tachycardia. She responded to adenosine. No seizures are reported. she is on ICU. Her Blood glucose is fluctuating, she is under the supervision of Dr Butterfield. she will be receiving her routine Hemodialysis in AM. Objective - Vital Signs/Intake and Output Vital Signs (last 24 hours): Temp Pulse Resp BP Pulse Ox 99.9 F H 120 H 20 93/70 L 96 12/26/16 20:40 12/26/16 21:36 12/26/16 21:36 12/26/16 21:36 12/26/16 21:36 - Medications Medications: Current Medications Acetaminophen (Tylenol 325mg Tab) 650 mg PO Q4 PRN PRN Reason: Fever >100.4 F Last Admin: 12/26/16 19:40 Dose: 650 mg Acetaminophen (Tylenol 325mg Tab) 650 mg PO Q4 PRN PRN Reason: Pain, moderate (4-7) Last Admin: 12/26/16 05:14 Dose: 650 mg Apixaban (Eliquis) 5 mg PO BID [facility] PRN Reason: Protocol Last Admin: 12/26/16 17:43 Dose: 5 mg Aspirin (Ecotrin) 81 mg PO DAILY [facility] Last Admin: 12/26/16 11:21 Dose: 81 mg Atorvastatin Calcium (Lipitor) 40 mg PO DAILY [facility] Last Admin: 12/26/16 11:21 Dose: 40 mg Benzocaine/Menthol (Cepacol Sore Throat) 1 mindi PO Q2 PRN PRN Reason: Sore Throat Last Admin: 12/25/16 20:17 Dose: 1 mindi Benzonatate (Tessalon Perles) 200 mg PO TID PRN PRN Reason: Cough Last Admin: 12/18/16 10:42 Dose: 200 mg Calcium Carbonate (Oscal) 500 mg PO BIDWM [facility] Last Admin: 12/26/16 17:44 Dose: 500 mg Cinacalcet (Sensipar) 30 mg PO DAILY [facility] Last Admin: 12/26/16 14:16 Dose: 30 mg Collagenase (Santyl) 1 applic TOP DAILY [facility] Last Admin: 12/26/16 14:15 Dose: 1 applic Diphenhydramine HCl (Benadryl) 25 mg PO Q6 PRN PRN Reason: Itching / Pruritus Last Admin: 12/17/16 09:53 Dose: 25 mg Docusate Sodium (Colace) 100 mg PO BID [facility] Last Admin: 12/26/16 17:39 Dose: Not Given Epoetin Tha (Procrit) 20,000 unit IV [facility] Last Admin: 12/25/16 10:25 Dose: 20,000 unit Ergocalciferol (Drisdol 50,000 Intl Units Cap) 1 cap PO WED [facility] Last Admin: 12/25/16 10:18 Dose: 1 cap Fluconazole (Diflucan) 100 mg PO DAILY [facility] Last Admin: 12/26/16 11:20 Dose: 100 mg Gabapentin (Neurontin) 300 mg PO TID [facility] Last Admin: 12/26/16 17:46 Dose: 300 mg Hydrocortisone (Anusol-Hc) 1 applic HI BID PRN PRN Reason: Inflammation Hydromorphone HCl (Dilaudid) 1 mg IVP Q4H PRN PRN Reason: Pain, severe (8-10) Last Admin: 12/26/16 19:39 Dose: 1 mg Meropenem 500 mg/ Sodium (Chloride) 100 mls @ 100 mls/hr IVPB DAILY@0100 [facility] Last Admin: 12/26/16 00:04 Dose: 100 mls/hr Gentamicin Sulfate/Sodium Chloride (Gentamicin 100mg/100ml Ns) 100 mg in 100 mls @ 100 mls/hr IVPB [facility] Last Admin: 12/25/16 10:15 Dose: 100 mls/hr Tigecycline 25 mg/ Sodium (Chloride) 100 mls @ 100 mls/hr IVPB Q12 [facility] Last Admin: 12/26/16 21:03 Dose: 100 mls/hr Sodium Chloride (Sodium Chloride 0.45%) 500 mls @ 10 mls/hr IV .Q24H [facility] Last Admin: 12/25/16 16:30 Dose: 10 mls/hr Iron Sucrose 100 mg/ Sodium (Chloride) 105 mls @ 105 mls/hr IVPB [facility] Stop: 12/30/16 09:59 Last Admin: 12/25/16 11:13 Dose: 105 mls/hr Daptomycin 650 mg/ Sodium (Chloride) 100 mls @ 100 mls/hr IVPB [facility] Stop: 01/15/17 09:59 Last Admin: 12/25/16 11:12 Dose: 100 mls/hr Levalbuterol HCl (Xopenex) 0.63 mg INH Q6H PRN PRN Reason: Shortness of Breath Nystatin (Nystop Topical Powder) 1 applic TOP BID [facility] Last Admin: 12/26/16 17:40 Dose: Not Given Ondansetron HCl (Zofran Inj) 4 mg IVP Q6 PRN PRN Reason: Nausea/Vomiting Last Admin: 09/19/16 10:26 Dose: 4 mg Pantoprazole Sodium (Protonix Ec Tab) 40 mg PO DAILY [facility] Last Admin: 12/26/16 11:20 Dose: 40 mg Repaglinide (Prandin) 0.5 mg PO TIDAC [facility] Last Admin: 12/26/16 17:43 Dose: 0.5 mg Sennosides (Senokot Tab) 25.8 mg PO HS [facility] Last Admin: 12/26/16 21:03 Dose: 25.8 mg Sevelamer HCl (Renagel) 1,600 mg PO TID [facility] Last Admin: 12/26/16 17:43 Dose: 1,600 mg Topiramate (Topamax) 50 mg PO BID [facility] Last Admin: 12/26/16 17:43 Dose: 50 mg Vitamin B Complex/Vit C/Folic Acid (Nephro-Ajay) 1 tab PO DAILY [facility] Last Admin: 12/26/16 11:20 Dose: 1 tab - Labs Labs: 12/25/16 07:49 12/25/16 07:49 PT 15.3 Seconds (9.8-13.1) H 12/02/16 13:05 INR 1.4 (0.9-1.2) H 12/02/16 13:05 APTT 37.0 Seconds (25.6-37.1) 12/02/16 13:05 Assessment and Plan (1) Diabetes Status: Chronic (2) ESRD (end stage renal disease) Status: Chronic (3) Cellulitis of leg Status: Chronic (4) Hyperlipidemia Status: Chronic (5) Back pain Status: Acute (6) Bacteremia due to Gram-negative bacteria Status: Acute (7) Diabetes mellitus type 2 with peripheral artery disease Status: Chronic (8) PVD (peripheral vascular disease) Status: Chronic (9) Osteomyelitis of right leg Status: Acute
[2016-12-27] MEDS: Meropenem 500 MG in Sodium Chloride 0.9% 100 ML IVPB SCH (01:00)
[2016-12-27 06:29] LABS: HEMATOCRIT 33.8 % (34.0-47.0); MEAN CELL VOLUME 97.5 fl (81.0-99.0); MEAN CORPUSCULAR HEMOGLOBIN 30.1 pg (27.0-31.0); MEAN CORPUSCULAR HGB CONC 30.8 g/dL (33.0-37.0); RED CELL DISTRIBUTION WIDTH 20.2 % (11.5-14.5); WHITE BLOOD COUNT 14.8 K/uL (4.8-10.8)
[2016-12-27 06:44] LABS: CALCIUM 8.6 mg/dL (8.4-10.2)
[2016-12-27 06:48] LABS: POTASSIUM 5.1 MMOL/L (3.6-5.0)
--- NOTE | 2016-12-27 07:46 | CP.PCM.PN ---
<GermainSb - Last Filed: 12/27/16 07:44> Subjective - Date & Time of Evaluation Date of Evaluation: 12/27/16 Time of Evaluation: 07:44 - Subjective Subjective: Surgery Pt s&e. Pt is in ICU for SVT. Got adenosin yesterday. HR 110-120s now. Resting comfortably. No complaints. Objective - Vital Signs/Intake and Output Vital Signs (last 24 hours): Temp Pulse Resp BP Pulse Ox 98.9 F 119 H 13 106/46 L 96 12/27/16 04:00 12/27/16 06:00 12/27/16 06:00 12/27/16 06:00 12/26/16 22:00 - Medications Medications: Current Medications Acetaminophen (Tylenol 325mg Tab) 650 mg PO Q4 PRN PRN Reason: Fever >100.4 F Last Admin: 12/26/16 19:40 Dose: 650 mg Acetaminophen (Tylenol 325mg Tab) 650 mg PO Q4 PRN PRN Reason: Pain, moderate (4-7) Last Admin: 12/26/16 05:14 Dose: 650 mg Apixaban (Eliquis) 5 mg PO BID [facility] PRN Reason: Protocol Last Admin: 12/26/16 17:43 Dose: 5 mg Aspirin (Ecotrin) 81 mg PO DAILY [facility] Last Admin: 12/26/16 11:21 Dose: 81 mg Atorvastatin Calcium (Lipitor) 40 mg PO DAILY [facility] Last Admin: 12/26/16 11:21 Dose: 40 mg Benzocaine/Menthol (Cepacol Sore Throat) 1 mindi PO Q2 PRN PRN Reason: Sore Throat Last Admin: 12/25/16 20:17 Dose: 1 mindi Benzonatate (Tessalon Perles) 200 mg PO TID PRN PRN Reason: Cough Last Admin: 12/27/16 04:39 Dose: 200 mg Calcium Carbonate (Oscal) 500 mg PO BIDWM [facility] Last Admin: 12/26/16 17:44 Dose: 500 mg Cinacalcet (Sensipar) 30 mg PO DAILY [facility] Last Admin: 12/26/16 14:16 Dose: 30 mg Collagenase (Santyl) 1 applic TOP DAILY [facility] Last Admin: 12/26/16 14:15 Dose: 1 applic Diphenhydramine HCl (Benadryl) 25 mg PO Q6 PRN PRN Reason: Itching / Pruritus Last Admin: 12/17/16 09:53 Dose: 25 mg Docusate Sodium (Colace) 100 mg PO BID [facility] Last Admin: 12/26/16 17:39 Dose: Not Given Epoetin Tha (Procrit) 20,000 unit IV [facility] Last Admin: 12/25/16 10:25 Dose: 20,000 unit Ergocalciferol (Drisdol 50,000 Intl Units Cap) 1 cap PO WED [facility] Last Admin: 12/25/16 10:18 Dose: 1 cap Fluconazole (Diflucan) 100 mg PO DAILY [facility] Last Admin: 12/26/16 11:20 Dose: 100 mg Gabapentin (Neurontin) 300 mg PO TID [facility] Last Admin: 12/26/16 17:46 Dose: 300 mg Hydrocortisone (Anusol-Hc) 1 applic MD BID PRN PRN Reason: Inflammation Hydromorphone HCl (Dilaudid) 1 mg IVP Q4H PRN PRN Reason: Pain, severe (8-10) Last Admin: 12/27/16 04:06 Dose: 1 mg Meropenem 500 mg/ Sodium (Chloride) 100 mls @ 100 mls/hr IVPB DAILY@0100 [facility] Last Admin: 12/27/16 01:00 Dose: 100 mls/hr Gentamicin Sulfate/Sodium Chloride (Gentamicin 100mg/100ml Ns) 100 mg in 100 mls @ 100 mls/hr IVPB [facility] Last Admin: 12/25/16 10:15 Dose: 100 mls/hr Tigecycline 25 mg/ Sodium (Chloride) 100 mls @ 100 mls/hr IVPB Q12 [facility] Last Admin: 12/26/16 21:03 Dose: 100 mls/hr Sodium Chloride (Sodium Chloride 0.45%) 500 mls @ 10 mls/hr IV .Q24H [facility] Last Admin: 12/25/16 16:30 Dose: 10 mls/hr Iron Sucrose 100 mg/ Sodium (Chloride) 105 mls @ 105 mls/hr IVPB [facility] Stop: 12/30/16 09:59 Last Admin: 12/25/16 11:13 Dose: 105 mls/hr Daptomycin 650 mg/ Sodium (Chloride) 100 mls @ 100 mls/hr IVPB [facility] Stop: 01/15/17 09:59 Last Admin: 12/25/16 11:12 Dose: 100 mls/hr Levalbuterol HCl (Xopenex) 0.63 mg INH Q6H PRN PRN Reason: Shortness of Breath Nystatin (Nystop Topical Powder) 1 applic TOP BID [facility] Last Admin: 12/26/16 17:40 Dose: Not Given Ondansetron HCl (Zofran Inj) 4 mg IVP Q6 PRN PRN Reason: Nausea/Vomiting Last Admin: 09/19/16 10:26 Dose: 4 mg Pantoprazole Sodium (Protonix Ec Tab) 40 mg PO DAILY [facility] Last Admin: 12/26/16 11:20 Dose: 40 mg Repaglinide (Prandin) 0.5 mg PO TIDAC [facility] Last Admin: 12/26/16 17:43 Dose: 0.5 mg Sennosides (Senokot Tab) 25.8 mg PO HS [facility] Last Admin: 12/26/16 21:03 Dose: 25.8 mg Sevelamer HCl (Renagel) 1,600 mg PO TID [facility] Last Admin: 12/26/16 17:43 Dose: 1,600 mg Topiramate (Topamax) 50 mg PO BID [facility] Last Admin: 12/26/16 17:43 Dose: 50 mg Vitamin B Complex/Vit C/Folic Acid (Nephro-Ajay) 1 tab PO DAILY [facility] Last Admin: 12/26/16 11:20 Dose: 1 tab - Labs Labs: 12/27/16 06:00 12/27/16 06:00 PT 15.3 Seconds (9.8-13.1) H 12/02/16 13:05 INR 1.4 (0.9-1.2) H 12/02/16 13:05 APTT 37.0 Seconds (25.6-37.1) 12/02/16 13:05 - Constitutional Appears: No Acute Distress - Head Exam Head Exam: ATRAUMATIC, NORMAL INSPECTION, NORMOCEPHALIC - Eye Exam Eye Exam: EOMI, Normal appearance, PERRL Pupil Exam: NORMAL ACCOMODATION, PERRL - ENT Exam ENT Exam: Mucous Membranes Moist, Normal Exam - Neck Exam Neck Exam: Full ROM, Normal Inspection. absent: Lymphadenopathy - Respiratory Exam Respiratory Exam: Clear to Ausculation Bilateral, NORMAL BREATHING PATTERN - Cardiovascular Exam Cardiovascular Exam: Tachycardia, +S1, +S2. absent: Murmur - GI/Abdominal Exam GI & Abdominal Exam: Soft. absent: Distended, Guarding, Rigid, Tenderness, Pulsatile Mass, Rebound - Extremities Exam Extremities Exam: Tenderness. absent: Joint Swelling, Pedal Edema Additional comments: b/l BKA. R stump has wound vac. No leaks. - Back Exam Back Exam: NORMAL INSPECTION - Neurological Exam Neurological Exam: Alert, Awake, CN II-XII Intact, Normal Gait, Oriented x3 - Psychiatric Exam Psychiatric exam: Normal Affect, Normal Mood - Skin Skin Exam: Dry, Warm. 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 Continue current wound care. Change VAC at bedside in 3-4 days. Continue Santyl to right knee patellar wound. Will DW Dr. Mccormack <Raffy Mccormack - Last Filed: 12/27/16 14:51> Objective - Vital Signs/Intake and Output Vital Signs (last 24 hours): Temp Pulse Resp BP Pulse Ox 97.7 F 110 H 14 84/58 L 97 12/27/16 12:00 12/27/16 12:00 12/27/16 12:00 12/27/16 12:00 12/27/16 12:00 - Medications Medications: Current Medications Acetaminophen (Tylenol 325mg Tab) 650 mg PO Q4 PRN PRN Reason: Fever >100.4 F Last Admin: 12/26/16 19:40 Dose: 650 mg Acetaminophen (Tylenol 325mg Tab) 650 mg PO Q4 PRN PRN Reason: Pain, moderate (4-7) Last Admin: 12/26/16 05:14 Dose: 650 mg Apixaban (Eliquis) 5 mg PO BID [facility] PRN Reason: Protocol Last Admin: 12/27/16 08:36 Dose: 5 mg Aspirin (Ecotrin) 81 mg PO DAILY [facility] Last Admin: 12/27/16 08:35 Dose: 81 mg Atorvastatin Calcium (Lipitor) 40 mg PO DAILY [facility] Last Admin: 12/27/16 08:36 Dose: 40 mg Benzocaine/Menthol (Cepacol Sore Throat) 1 mindi PO Q2 PRN PRN Reason: Sore Throat Last Admin: 12/25/16 20:17 Dose: 1 mindi Benzonatate (Tessalon Perles) 200 mg PO TID PRN PRN Reason: Cough Last Admin: 12/27/16 04:39 Dose: 200 mg Calcium Carbonate (Oscal) 500 mg PO BIDWM [facility] Last Admin: 12/27/16 08:37 Dose: 500 mg Cinacalcet (Sensipar) 30 mg PO DAILY [facility] Last Admin: 12/27/16 08:38 Dose: 30 mg Collagenase (Santyl) 1 applic TOP DAILY [facility] Last Admin: 12/26/16 14:15 Dose: 1 applic Diphenhydramine HCl (Benadryl) 25 mg PO Q6 PRN PRN Reason: Itching / Pruritus Last Admin: 12/17/16 09:53 Dose: 25 mg Docusate Sodium (Colace) 100 mg PO BID [facility] Last Admin: 12/27/16 08:33 Dose: 100 mg Epoetin Tha (Procrit) [facility] Last Admin: 12/27/16 11:43 Dose: 20,000 unit Ergocalciferol (Drisdol 50,000 Intl Units Cap) 1 cap PO WED [facility] Last Admin: 12/25/16 10:18 Dose: 1 cap Fluconazole (Diflucan) 100 mg PO DAILY [facility] Last Admin: 12/27/16 08:34 Dose: 100 mg Gabapentin (Neurontin) 300 mg PO TID [facility] Last Admin: 12/27/16 12:15 Dose: 300 mg Hydrocortisone (Anusol-Hc) 1 applic MD BID PRN PRN Reason: Inflammation Hydromorphone HCl (Dilaudid) 1 mg IVP Q4H PRN PRN Reason: Pain, severe (8-10) Last Admin: 12/27/16 08:42 Dose: 1 mg Meropenem 500 mg/ Sodium (Chloride) 100 mls @ 100 mls/hr IVPB DAILY@0100 [facility] Last Admin: 12/27/16 01:00 Dose: 100 mls/hr Gentamicin Sulfate/Sodium Chloride (Gentamicin 100mg/100ml Ns) 100 mg in 100 mls @ 100 mls/hr IVPB MWF [facility] Last Admin: 12/27/16 13:00 Dose: 100 mls/hr Tigecycline 25 mg/ Sodium (Chloride) 100 mls @ 100 mls/hr IVPB Q12 [facility] Last Admin: 12/26/16 21:03 Dose: 100 mls/hr Sodium Chloride (Sodium Chloride 0.45%) 500 mls @ 10 mls/hr IV .Q24H [facility] Last Admin: 12/25/16 16:30 Dose: 10 mls/hr Iron Sucrose 100 mg/ Sodium (Chloride) 105 mls @ 105 mls/hr IVPB [facility] Stop: 12/30/16 09:59 Last Admin: 12/25/16 11:13 Dose: 105 mls/hr Daptomycin 650 mg/ Sodium (Chloride) 100 mls @ 100 mls/hr IVPB [facility] Stop: 01/15/17 09:59 Last Admin: 12/25/16 11:12 Dose: 100 mls/hr Levalbuterol HCl (Xopenex) 0.63 mg INH Q6H PRN PRN Reason: Shortness of Breath Nystatin (Nystop Topical Powder) 1 applic TOP BID [facility] Last Admin: 12/27/16 12:16 Dose: Not Given Ondansetron HCl (Zofran Inj) 4 mg IVP Q6 PRN PRN Reason: Nausea/Vomiting Last Admin: 09/19/16 10:26 Dose: 4 mg Pantoprazole Sodium (Protonix Ec Tab) 40 mg PO DAILY [facility] Last Admin: 12/27/16 08:38 Dose: 40 mg Repaglinide (Prandin) 0.5 mg PO TIDAC [facility] Last Admin: 12/27/16 12:16 Dose: 0.5 mg Sennosides (Senokot Tab) 25.8 mg PO HS [facility] Last Admin: 12/26/16 21:03 Dose: 25.8 mg Sevelamer HCl (Renagel) 1,600 mg PO TID [facility] Last Admin: 12/27/16 12:16 Dose: 1,600 mg Topiramate (Topamax) 50 mg PO BID [facility] Last Admin: 12/27/16 08:39 Dose: 50 mg Vitamin B Complex/Vit C/Folic Acid (Nephro-Ajay) 1 tab PO DAILY [facility] Last Admin: 12/27/16 08:36 Dose: 1 tab - Labs Labs: 12/27/16 06:00 12/27/16 06:00 PT 15.3 Seconds (9.8-13.1) H 12/02/16 13:05 INR 1.4 (0.9-1.2) H 12/02/16 13:05 APTT 37.0 Seconds (25.6-37.1) 12/02/16 13:05 Assessment and Plan - Assessment and Plan (Free Text) Plan: Patient seen and examined. VAC changed at the bedside - right BKA wound is healing quite well with beefy red, oozing granulation tissue and no evidence of tissue necrosis or ischemia. Right patellar wound is progressing toward healing with enzymatic debridement. There was scant amount of purulent discharge from previously placed retention sutures wounds - cultures sent. Patient shows increased WBC and intermittent fevers - cultures from central venous catheters sent. Continue current wound care. If blood cultures come back positive patient will require discontinuation of her central venous catheters, line holiday on antibiotics and alternative means of dialysis access.
--- NOTE | 2016-12-27 08:03 | CP.PCM.PN ---
Subjective - Date & Time of Evaluation Date of Evaluation: 12/27/16 Time of Evaluation: 08:02 - Subjective Subjective: Yesterday pt had tachycardia with heart rate of 150/min. She was transferred to the ICU and her heart rate uis 117 today. CBC is stable. Objective - Vital Signs/Intake and Output Vital Signs (last 24 hours): Temp Pulse Resp BP Pulse Ox 98.9 F 119 H 13 106/46 L 96 12/27/16 04:00 12/27/16 06:00 12/27/16 06:00 12/27/16 06:00 12/26/16 22:00 - Medications Medications: Current Medications Acetaminophen (Tylenol 325mg Tab) 650 mg PO Q4 PRN PRN Reason: Fever >100.4 F Last Admin: 12/26/16 19:40 Dose: 650 mg Acetaminophen (Tylenol 325mg Tab) 650 mg PO Q4 PRN PRN Reason: Pain, moderate (4-7) Last Admin: 12/26/16 05:14 Dose: 650 mg Apixaban (Eliquis) 5 mg PO BID [facility] PRN Reason: Protocol Last Admin: 12/26/16 17:43 Dose: 5 mg Aspirin (Ecotrin) 81 mg PO DAILY [facility] Last Admin: 12/26/16 11:21 Dose: 81 mg Atorvastatin Calcium (Lipitor) 40 mg PO DAILY [facility] Last Admin: 12/26/16 11:21 Dose: 40 mg Benzocaine/Menthol (Cepacol Sore Throat) 1 mindi PO Q2 PRN PRN Reason: Sore Throat Last Admin: 12/25/16 20:17 Dose: 1 mindi Benzonatate (Tessalon Perles) 200 mg PO TID PRN PRN Reason: Cough Last Admin: 12/27/16 04:39 Dose: 200 mg Calcium Carbonate (Oscal) 500 mg PO BIDWM [facility] Last Admin: 12/26/16 17:44 Dose: 500 mg Cinacalcet (Sensipar) 30 mg PO DAILY [facility] Last Admin: 12/26/16 14:16 Dose: 30 mg Collagenase (Santyl) 1 applic TOP DAILY [facility] Last Admin: 12/26/16 14:15 Dose: 1 applic Diphenhydramine HCl (Benadryl) 25 mg PO Q6 PRN PRN Reason: Itching / Pruritus Last Admin: 12/17/16 09:53 Dose: 25 mg Docusate Sodium (Colace) 100 mg PO BID [facility] Last Admin: 12/26/16 17:39 Dose: Not Given Epoetin Tha (Procrit) 20,000 unit [place] [facility] Admin: 12/25/16 10:25 Dose: 20,000 unit Ergocalciferol (Drisdol 50,000 Intl Units Cap) 1 cap PO WED [facility] Last Admin: 12/25/16 10:18 Dose: 1 cap Fluconazole (Diflucan) 100 mg PO DAILY [facility] Last Admin: 12/26/16 11:20 Dose: 100 mg Gabapentin (Neurontin) 300 mg PO TID [facility] Last Admin: 12/26/16 17:46 Dose: 300 mg Hydrocortisone (Anusol-Hc) 1 applic [place] BID PRN PRN Reason: Inflammation Hydromorphone HCl (Dilaudid) 1 mg IVP Q4H PRN PRN Reason: Pain, severe (8-10) Last Admin: 12/27/16 04:06 Dose: 1 mg Meropenem 500 mg/ Sodium (Chloride) 100 mls @ 100 mls/hr IVPB DAILY@0100 [facility] Last Admin: 12/27/16 01:00 Dose: 100 mls/hr Gentamicin Sulfate/Sodium Chloride (Gentamicin 100mg/100ml Ns) 100 mg in 100 mls @ 100 mls/hr IVPB [facility] Last Admin: 12/25/16 10:15 Dose: 100 mls/hr Tigecycline 25 mg/ Sodium (Chloride) 100 mls @ 100 mls/hr IVPB Q12 [facility] Last Admin: 12/26/16 21:03 Dose: 100 mls/hr Sodium Chloride (Sodium Chloride 0.45%) 500 mls @ 10 mls/hr IV .Q24H [facility] Last Admin: 12/25/16 16:30 Dose: 10 mls/hr Iron Sucrose 100 mg/ Sodium (Chloride) 105 mls @ 105 mls/hr IVPB [facility] Stop: 12/30/16 09:59 Last Admin: 12/25/16 11:13 Dose: 105 mls/hr Daptomycin 650 mg/ Sodium (Chloride) 100 mls @ 100 mls/hr IVPB [facility] Stop: 01/15/17 09:59 Last Admin: 12/25/16 11:12 Dose: 100 mls/hr Levalbuterol HCl (Xopenex) 0.63 mg INH Q6H PRN PRN Reason: Shortness of Breath Nystatin (Nystop Topical Powder) 1 applic TOP BID [facility] Last Admin: 12/26/16 17:40 Dose: Not Given Ondansetron HCl (Zofran Inj) 4 mg IVP Q6 PRN PRN Reason: Nausea/Vomiting Last Admin: 09/19/16 10:26 Dose: 4 mg Pantoprazole Sodium (Protonix Ec Tab) 40 mg PO DAILY [facility] Last Admin: 12/26/16 11:20 Dose: 40 mg Repaglinide (Prandin) 0.5 mg PO TIDAC [facility] Last Admin: 12/26/16 17:43 Dose: 0.5 mg Sennosides (Senokot Tab) 25.8 mg PO HS [facility] Last Admin: 12/26/16 21:03 Dose: 25.8 mg Sevelamer HCl (Renagel) 1,600 mg PO TID [facility] Last Admin: 12/26/16 17:43 Dose: 1,600 mg Topiramate (Topamax) 50 mg PO BID [facility] Last Admin: 12/26/16 17:43 Dose: 50 mg Vitamin B Complex/Vit C/Folic Acid (Nephro-Ajay) 1 tab PO DAILY [facility] Last Admin: 12/26/16 11:20 Dose: 1 tab - Labs Labs: 12/27/16 06:00 12/27/16 06:00 PT 15.3 Seconds (9.8-13.1) H 12/02/16 13:05 INR 1.4 (0.9-1.2) H 12/02/16 13:05 APTT 37.0 Seconds (25.6-37.1) 12/02/16 13:05
[2016-12-27] MEDS: Multivitamin Vitamin B Complex (Nephro-Vite) Tab PO SCH (08:36)
[2016-12-27] MEDS: Pantoprazole 40 mg EC Tab PO SCH (08:38)
[2016-12-27] MEDS: Santyl Collagenase OINTMENT TOP SCH (09:00)
--- NOTE | 2016-12-27 10:06 | CP.PCM.PN ---
Subjective - Date & Time of Evaluation Date of Evaluation: 12/27/16 Time of Evaluation: 10:04 - Subjective Subjective: Patient was seen on hemodialysis and intensive care unit She is awake and conscious Although noted she is tachycardic on the monitor around 115 what appeared to be irregular Patient asymptomatic I discussed with the dialysis nurse at the bedside we went over the order which was Sodium 138 Potassium 20 mEq Bicarbonate 34 Objective - Vital Signs/Intake and Output Vital Signs (last 24 hours): Temp Pulse Resp BP Pulse Ox 98 F 118 H 16 97/35 L 97 12/27/16 08:00 12/27/16 08:00 12/27/16 08:00 12/27/16 08:00 12/27/16 08:00 - Medications Medications: Current Medications Acetaminophen (Tylenol 325mg Tab) 650 mg PO Q4 PRN PRN Reason: Fever >100.4 F Last Admin: 12/26/16 19:40 Dose: 650 mg Acetaminophen (Tylenol 325mg Tab) 650 mg PO Q4 PRN PRN Reason: Pain, moderate (4-7) Last Admin: 12/26/16 05:14 Dose: 650 mg Apixaban (Eliquis) 5 mg PO BID [facility] PRN Reason: Protocol Last Admin: 12/27/16 08:36 Dose: 5 mg Aspirin (Ecotrin) 81 mg PO DAILY [facility] Last Admin: 12/27/16 08:35 Dose: 81 mg Atorvastatin Calcium (Lipitor) 40 mg PO DAILY [facility] Last Admin: 12/27/16 08:36 Dose: 40 mg Benzocaine/Menthol (Cepacol Sore Throat) 1 mindi PO Q2 PRN PRN Reason: Sore Throat Last Admin: 12/25/16 20:17 Dose: 1 mindi Benzonatate (Tessalon Perles) 200 mg PO TID PRN PRN Reason: Cough Last Admin: 12/27/16 04:39 Dose: 200 mg Calcium Carbonate (Oscal) 500 mg PO BIDWM [facility] Last Admin: 12/27/16 08:37 Dose: 500 mg Cinacalcet (Sensipar) 30 mg PO DAILY [facility] Last Admin: 12/27/16 08:38 Dose: 30 mg Collagenase (Santyl) 1 applic TOP DAILY [facility] Last Admin: 12/26/16 14:15 Dose: 1 applic Diphenhydramine HCl (Benadryl) 25 mg PO Q6 PRN PRN Reason: Itching / Pruritus Last Admin: 12/17/16 09:53 Dose: 25 mg Docusate Sodium (Colace) 100 mg PO BID [facility] Last Admin: 12/27/16 08:33 Dose: 100 mg Epoetin Tha (Procrit) 20,000 unit IV [facility] [place] Last Admin: 12/25/16 10:25 Dose: 20,000 unit Ergocalciferol (Drisdol 50,000 Intl Units Cap) 1 cap PO WED [facility] Last Admin: 12/25/16 10:18 Dose: 1 cap Fluconazole (Diflucan) 100 mg PO DAILY [facility] Last Admin: 12/27/16 08:34 Dose: 100 mg Gabapentin (Neurontin) 300 mg PO TID [facility] Last Admin: 12/27/16 08:37 Dose: 300 mg Hydrocortisone (Anusol-Hc) 1 applic [place] BID PRN PRN Reason: Inflammation Hydromorphone HCl (Dilaudid) 1 mg IVP Q4H PRN PRN Reason: Pain, severe (8-10) Last Admin: 12/27/16 08:42 Dose: 1 mg Meropenem 500 mg/ Sodium (Chloride) 100 mls @ 100 mls/hr IVPB DAILY@0100 [facility] Last Admin: 12/27/16 01:00 Dose: 100 mls/hr Gentamicin Sulfate/Sodium Chloride (Gentamicin 100mg/100ml Ns) 100 mg in 100 mls @ 100 mls/hr IVPB [facility] [place] Last Admin: 12/25/16 10:15 Dose: 100 mls/hr Tigecycline 25 mg/ Sodium (Chloride) 100 mls @ 100 mls/hr IVPB Q12 [facility] Last Admin: 12/26/16 21:03 Dose: 100 mls/hr Sodium Chloride (Sodium Chloride 0.45%) 500 mls @ 10 mls/hr IV .Q24H [facility] Last Admin: 12/25/16 16:30 Dose: 10 mls/hr Iron Sucrose 100 mg/ Sodium (Chloride) 105 mls @ 105 mls/hr IVPB [facility] [place] Stop: 12/30/16 09:59 Last Admin: 12/25/16 11:13 Dose: 105 mls/hr Daptomycin 650 mg/ Sodium (Chloride) 100 mls @ 100 mls/hr IVPB [facility] [place] Stop: 01/15/17 09:59 Last Admin: 12/25/16 11:12 Dose: 100 mls/hr Levalbuterol HCl (Xopenex) 0.63 mg INH Q6H PRN PRN Reason: Shortness of Breath Nystatin (Nystop Topical Powder) 1 applic TOP BID [facility] Last Admin: 12/26/16 17:40 Dose: Not Given Ondansetron HCl (Zofran Inj) 4 mg IVP Q6 PRN PRN Reason: Nausea/Vomiting Last Admin: 09/19/16 10:26 Dose: 4 mg Pantoprazole Sodium (Protonix Ec Tab) 40 mg PO DAILY [facility] Last Admin: 12/27/16 08:38 Dose: 40 mg Repaglinide (Prandin) 0.5 mg PO TIDAC [facility] Last Admin: 12/27/16 08:37 Dose: 0.5 mg Sennosides (Senokot Tab) 25.8 mg PO HS [facility] Last Admin: 12/26/16 21:03 Dose: 25.8 mg Sevelamer HCl (Renagel) 1,600 mg PO TID [facility] Last Admin: 12/27/16 08:38 Dose: 1,600 mg Topiramate (Topamax) 50 mg PO BID [facility] Last Admin: 12/27/16 08:39 Dose: 50 mg Vitamin B Complex/Vit C/Folic Acid (Nephro-Ajay) 1 tab PO DAILY [facility] Last Admin: 12/27/16 08:36 Dose: 1 tab - Labs Labs: 12/27/16 06:00 12/27/16 06:00 PT 15.3 Seconds (9.8-13.1) H 12/02/16 13:05 INR 1.4 (0.9-1.2) H 12/02/16 13:05 APTT 37.0 Seconds (25.6-37.1) 12/02/16 13:05 - Constitutional Appears: No Acute Distress - ENT Exam ENT Exam: Mucous Membranes Moist - Respiratory Exam Respiratory Exam: absent: Chest Wall Tenderness - GI/Abdominal Exam GI & Abdominal Exam: Normal Bowel Sounds - Extremities Exam Extremities Exam: absent: Calf Tenderness - Back Exam Back Exam: absent: CVA tenderness (L), CVA tenderness (R) - Neurological Exam Neurological Exam: Alert Assessment and Plan (1) ESRD (end stage renal disease) Assessment & Plan: End stage renal disease receiving hemodialysis Friday As noted above she was seen on dialysis and she is stable at the present The rest of the medical problem as noted has been stable except of the new episode of rapid heart rate for which she was transferred to ICU and she has been follow-up by cardiology as well. 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 End stage renal disease on hemodialysis (MWF) via permacath: Will plan for dialysis friday. No Acute need today. continue with Nephrovite 1 tab/day. Anemia: On MARTHA as Epogen 20,000 with HD. last Hb 10 Hyperphosphatemia: continue with current meds as renagel 1600 TID, last phos 4.8 Secondary hyperparathyroidism with Vit D Deficiency: continue with sensipar 30 mg/day. Last PTH level 423. recheck with next lab Status: Chronic (2) Cellulitis of leg Status: Chronic
[2016-12-27] MEDS: Epoetin Alfa 20000 UNIT/ML Inj IV SCH (11:43)
[2016-12-27] MEDS: Gentamicin 100mg/100ml NS 100 MG/100 ML BAG IVPB SCH (13:00)
--- NOTE | 2016-12-27 14:52 | CP.PCM.PN ---
Subjective - Date & Time of Evaluation Date of Evaluation: 12/27/16 Time of Evaluation: 14:50 - Subjective Subjective: Notes by Drs. Guadarrama and Evita Shepard appreciated. Patient has been stable in sinus rhythm and was stable for transfer back to regular med/surg floor. Concern raised because of increased wbc or 20,000 and temp of 99.9 last night. Blood culture was drawm through Permacath this morning, and I will order femoral vein PICC line blood cultures now. Wound vac changed by Dr. Mccormack. There is nice granulation tissue and wound is definitely smaller and healing by secondary intention (from bottom up). However, this is a small area of purulence at one of the previous suture site. This area and the wound itself were cultured by swab. A new wound vac foam dressing was placed. The patellar wound is granulating nicely, but there remains an approx. 1.5 cm area of fibrinous yellow material in the center. This was cleansed with saline and covered with Santyl and moist saline dressing. Less cough. And no further fevers since last night. Patient complains of sharp, "electrical" pains in both lower extremities. These are intermittent. Popliteal pulses are OK. Dr. Mccormack and I believe these pains are neuritic - possibly phantom limb pain BUT..... I believe they could be coming from nerve injury occurring when the patient is lifted in the Maurice-type lift that goes between the legs. Note that patien weighs over 200 lbs and there is tremendous pressure on the posterior and medial thighs when she is lifted. Objective - Vital Signs/Intake and Output Vital Signs (last 24 hours): Temp Pulse Resp BP Pulse Ox 97.7 F 110 H 14 84/58 L 97 12/27/16 12:00 12/27/16 12:00 12/27/16 12:00 12/27/16 12:00 12/27/16 12:00 Current vital signs (1500 hours): T 98.9 P 78 BP 137/83 Oxygen sat 95% - Medications Medications: Current Medications Acetaminophen (Tylenol 325mg Tab) 650 mg PO Q4 PRN PRN Reason: Fever >100.4 F Last Admin: 12/26/16 19:40 Dose: 650 mg Acetaminophen (Tylenol 325mg Tab) 650 mg PO Q4 PRN PRN Reason: Pain, moderate (4-7) Last Admin: 12/26/16 05:14 Dose: 650 mg Apixaban (Eliquis) 5 mg PO BID [facility] PRN Reason: Protocol Last Admin: 12/27/16 08:36 Dose: 5 mg Aspirin (Ecotrin) 81 mg PO DAILY [facility] Last Admin: 12/27/16 08:35 Dose: 81 mg Atorvastatin Calcium (Lipitor) 40 mg PO DAILY [facility] Last Admin: 12/27/16 08:36 Dose: 40 mg Benzocaine/Menthol (Cepacol Sore Throat) 1 mindi PO Q2 PRN PRN Reason: Sore Throat Last Admin: 12/25/16 20:17 Dose: 1 mindi Benzonatate (Tessalon Perles) 200 mg PO TID PRN PRN Reason: Cough Last Admin: 12/27/16 04:39 Dose: 200 mg Calcium Carbonate (Oscal) 500 mg PO BIDWM [facility] Last Admin: 12/27/16 08:37 Dose: 500 mg Cinacalcet (Sensipar) 30 mg PO DAILY [facility] Last Admin: 12/27/16 08:38 Dose: 30 mg Collagenase (Santyl) 1 applic TOP DAILY [facility] Last Admin: 12/26/16 14:15 Dose: 1 applic Diphenhydramine HCl (Benadryl) 25 mg PO Q6 PRN PRN Reason: Itching / Pruritus Last Admin: 12/17/16 09:53 Dose: 25 mg Docusate Sodium (Colace) 100 mg PO BID [facility] Last Admin: 12/27/16 08:33 Dose: 100 mg Epoetin Tha (Procrit) 20,000 unit IV MWF [facility] Last Admin: 12/27/16 11:43 Dose: 20,000 unit Ergocalciferol (Drisdol 50,000 Intl Units Cap) 1 cap PO WED [facility] Last Admin: 12/25/16 10:18 Dose: 1 cap Fluconazole (Diflucan) 100 mg PO DAILY [facility] Last Admin: 12/27/16 08:34 Dose: 100 mg Gabapentin (Neurontin) 300 mg PO TID [facility] Last Admin: 12/27/16 12:15 Dose: 300 mg Hydrocortisone (Anusol-Hc) 1 applic [place] BID PRN PRN Reason: Inflammation Hydromorphone HCl (Dilaudid) 1 mg IVP Q4H PRN PRN Reason: Pain, severe (8-10) Last Admin: 12/27/16 08:42 Dose: 1 mg Meropenem 500 mg/ Sodium (Chloride) 100 mls @ 100 mls/hr IVPB DAILY@0100 [facility] Last Admin: 12/27/16 01:00 Dose: 100 mls/hr Gentamicin Sulfate/Sodium Chloride (Gentamicin 100mg/100ml Ns) 100 mg in 100 mls @ 100 mls/hr IVPB [facility] [place] Last Admin: 12/27/16 13:00 Dose: 100 mls/hr Tigecycline 25 mg/ Sodium (Chloride) 100 mls @ 100 mls/hr IVPB Q12 [facility] Last Admin: 12/26/16 21:03 Dose: 100 mls/hr Sodium Chloride (Sodium Chloride 0.45%) 500 mls @ 10 mls/hr IV .Q24H [facility] Last Admin: 12/25/16 16:30 Dose: 10 mls/hr Iron Sucrose 100 mg/ Sodium (Chloride) 105 mls @ 105 mls/hr IVPB [facility] [place] Stop: 12/30/16 09:59 Last Admin: 12/25/16 11:13 Dose: 105 mls/hr Daptomycin 650 mg/ Sodium (Chloride) 100 mls @ 100 mls/hr IVPB [facility] [place] Stop: 01/15/17 09:59 Last Admin: 12/25/16 11:12 Dose: 100 mls/hr Levalbuterol HCl (Xopenex) 0.63 mg INH Q6H PRN PRN Reason: Shortness of Breath Nystatin (Nystop Topical Powder) 1 applic TOP BID [facility] Last Admin: 12/27/16 12:16 Dose: Not Given Ondansetron HCl (Zofran Inj) 4 mg IVP Q6 PRN PRN Reason: Nausea/Vomiting Last Admin: 09/19/16 10:26 Dose: 4 mg Pantoprazole Sodium (Protonix Ec Tab) 40 mg PO DAILY [facility] Last Admin: 12/27/16 08:38 Dose: 40 mg Repaglinide (Prandin) 0.5 mg PO TIDAC [facility] Last Admin: 12/27/16 12:16 Dose: 0.5 mg Sennosides (Senokot Tab) 25.8 mg PO HS [facility] Last Admin: 12/26/16 21:03 Dose: 25.8 mg Sevelamer HCl (Renagel) 1,600 mg PO TID [facility] Last Admin: 12/27/16 12:16 Dose: 1,600 mg Topiramate (Topamax) 50 mg PO BID [facility] Last Admin: 12/27/16 08:39 Dose: 50 mg Vitamin B Complex/Vit C/Folic Acid (Nephro-Ajay) 1 tab PO DAILY [facility] Last Admin: 12/27/16 08:36 Dose: 1 tab - Labs Labs: 12/27/16 06:00 12/27/16 06:00 PT 15.3 Seconds (9.8-13.1) H 12/02/16 13:05 INR 1.4 (0.9-1.2) H 12/02/16 13:05 APTT 37.0 Seconds (25.6-37.1) 12/02/16 13:05 - Constitutional Appears: Other (In pain (legs) and appears tired.) - Head Exam Head Exam: NORMAL INSPECTION - Eye Exam Eye Exam: Normal appearance - ENT Exam ENT Exam: Mucous Membranes Moist - Neck Exam Additional comments: Right subclavian Permacath intact. - Respiratory Exam Respiratory Exam: Clear to Ausculation Bilateral, NORMAL BREATHING PATTERN - Cardiovascular Exam Cardiovascular Exam: REGULAR RHYTHM, +S1, +S2 - GI/Abdominal Exam GI & Abdominal Exam: Soft Additional comments: Non-tender - Extremities Exam Additional comments: See subjective for description of right lower extremity wounds. Popliteal pulses palpable. - Back Exam Back Exam: NORMAL INSPECTION - Neurological Exam Neurological Exam: Alert, Awake, CN II-XII Intact, Oriented x3 - Psychiatric Exam Psychiatric exam: Anxious - Skin Skin Exam: Dry, Normal Color, Warm Assessment and Plan (1) Supraventricular tachycardia Assessment & Plan: Resolved. (2) Status post below knee amputation of right lower extremity Assessment & Plan: Healing slowly. But, fever and increased wbc and small area of purulence on periphery is a concern. See subjective. Status: Acute (3) ESRD (end stage renal disease) on dialysis Status: Chronic (4) DM type 2 (diabetes mellitus, type 2) Status: Chronic (5) Coagulopathy Status: Chronic (6) Peripheral arterial occlusive disease Status: Chronic - Assessment and Plan (Free Text) Assessment: Will get stat blood cultures through PICC line now. Will get CBC with diff and CMP in the am via PICC line. Blood cultures through Permacath already done earlier today. Hold on physical therapy and avoid using the Maurice type lift for a few days.
[2016-12-27] MEDS: TIGECYCLINE IVPB SCH ×2 (15:06→20:50)
[2016-12-27] MEDS: SODIUM CHLORIDE 0.9% IVPB SCH ×2 (15:06→20:50)
[2016-12-27] MEDS: Benzocaine/Menthol (Cepacol) Lozenge PO PRN (16:32)
--- NOTE | 2016-12-27 20:21 | PN ---
DATE: 12/27/2016 LOCATION: The patient in ICU, bed 435. SUBJECTIVE: The patient is seen and evaluated at the bedside. Case discussed in a.m. ICU rounds. Events since admission to ICU reviewed. A 46-year-old female with history of diabetes mellitus type 2, end-stage renal disease, severe peripheral vascular disease, status post below-knee amputations admitted after having had tachycardia, treated with adenosine, converted to sinus rhythm; noted to have temperature 101.3 last night. This morning undergoing dialysis. Alert, awake, follows command appropriate; complaining of spicy throat and occasional dry cough. No chest pain or palpitation. Denies abdominal pain; tolerating p.o. feeds; complaining of pain at the right lower extremity below the level of amputation. PHYSICAL EXAMINATION: VITAL SIGNS: Temperature 98.9, heart rate 118 to 120, blood pressure 108/62, saturating 97% on room air. Status post dialysis. HEAD, EYES, EARS, NOSE AND THROAT: Pupils are reactive. Conjunctivae pale. Sclerae white. NECK: Supple. Right subclavian Perm-A-Cath intact. HEART: Rhythm regular, tachycardia. LUNGS: Bilateral breath sounds. Clear to auscultation. ABDOMEN: Bowel sounds present and soft. EXTREMITIES: Right below-knee dressing. Wound VAC intact. Right patella dressing intact. PICC line intact, left femoral area. NEUROLOGIC: Oriented to name, place, and time. SKIN: Normal color, LABORATORY DATA: WBC 14.8, hemoglobin 10.4, hematocrit 33.8, platelet count 201. Microbiology; wound culture positive for Klebsiella pneumonia. Throat culture, no beta strep group A isolated. PT 15.5, INR 1.4. SMA-7: Sodium 138, potassium 5.1, chloride 103, CO2 of 25, blood urea nitrogen 56, creatinine 6.8, glucose 78, random gentamicin level 2.7 dated 12/18. IMPRESSION: 1. NEURO: Alert, oriented to name, place x3. 2. Pulmonary: No evidence of pneumonia. 3. Cardiac: Status post supraventricular tachycardia; remains tachycardic, fever with leukocytosis suggesting possible ongoing infectionction/systemic inflammatory response syndrome. 4. Renal: End-stage renal disease, status post hemodialysis. 5. Diabetes mellitus type 2: Continue current medications, coagulopathy controlled. 6. Peripheral arterial occlusive disease: Status post amputation with the wound still possible source of infection. Previously noted to have Klebsiella pneumonia from the wound culture. Continue wound care, tigecycline 25 mg IV q.12 hours, daptomycin 650 mg IV push Friday, Friday, and Friday. Continue Eliquis 5 mg p.o. b.i.d., Ecotrin 81 mg p.o. daily, Lipitor 40 mg p.o. daily, Tessalon Perles 200 mg p.o. 3 times daily, [place] 500 mg p.o. b.i.d. once a week; Sensipar 30 mg p.o. daily; Colace 100 mg p.o. twice daily; Diflucan 100 mg p.o. daily; Neurontin 300 mg p.o. 3 times daily; gentamicin 100 mg Friday, Friday and Friday with the dialysis; meropenem 500 mg IV daily; 0.5 mg 3 times daily; Protonix EC 40 mg p.o. daily; sevelamer 1600 mg 3 times daily. Refugio Jarrell MD [facility] # [id number] MTDD
--- NOTE | 2016-12-27 20:41 | PN ---
DATE: ENDOCRINOLOGY FOLLOWUP NOTE SUBJECTIVE: This is a 46-year-old female with recent uncontrolled type 2 diabetes, now being followed closely for metabolic management especially postoperatively, following a recent right below knee amputation for severe underlying osteomyelitis. At this time, she developed a low grade fever with supervening marked leukocytosis as noted. LABORATORY DATA: Her latest WBC now 14.8 with a hemoglobin of 10.4, and hematocrit of 34 with MCV of 97. Her latest chemistry showed a BUN of 56, sodium 138, potassium 5.1, chloride 103, CO2 of 25, glucose 78 and creatinine 6.8. Her glucose levels are fluctuating, but improved and have ranged from 64 to 225 mg/dL. So at this time, we will continue the same low dose oral hypoglycemic drugs therapy with Prandin given as 0.5 mg p.o. t.i.d. with meals as ordered. We will titrate incrementally as indicated to optimize metabolic control. We will follow. Irene Ambrose MD
--- NOTE | 2016-12-27 23:33 | CP.PCM.PN ---
Subjective - Date & Time of Evaluation Date of Evaluation: 12/27/16 Time of Evaluation: 21:00 - Subjective Subjective: Patient has no seizures. She has a fluctuating Glucose level between 65 and 200's. Her Procalcitonin is 0.05 suggesting a low possibility of a serious infection. Her WBCs are 14.5 and her BUN, Creatinine are high and Potassium is mildly high.She is receiving Antibiotics. She is awake alert oriented X 3, talking and interactive. Objective - Vital Signs/Intake and Output Vital Signs (last 24 hours): Temp Pulse Resp BP Pulse Ox 99.7 F H 117 H 20 136/67 92 L 12/27/16 16:10 12/27/16 16:10 12/27/16 16:10 12/27/16 16:10 12/27/16 16:10 - Medications Medications: Current Medications Acetaminophen (Tylenol 325mg Tab) 650 mg PO Q4 PRN PRN Reason: Fever >100.4 F Last Admin: 12/26/16 19:40 Dose: 650 mg Acetaminophen (Tylenol 325mg Tab) 650 mg PO Q4 PRN PRN Reason: Pain, moderate (4-7) Last Admin: 12/26/16 05:14 Dose: 650 mg Apixaban (Eliquis) 5 mg PO BID [facility] PRN Reason: Protocol Last Admin: 12/27/16 16:33 Dose: 5 mg Aspirin (Ecotrin) 81 mg PO DAILY [facility] Last Admin: 12/27/16 08:35 Dose: 81 mg Atorvastatin Calcium (Lipitor) 40 mg PO DAILY [facility] Last Admin: 12/27/16 08:36 Dose: 40 mg Benzocaine/Menthol (Cepacol Sore Throat) 1 mindi PO Q2 PRN PRN Reason: Sore Throat Last Admin: 12/27/16 16:32 Dose: 1 mindi Benzonatate (Tessalon Perles) 200 mg PO TID PRN PRN Reason: Cough Last Admin: 12/27/16 04:39 Dose: 200 mg Calcium Carbonate (Oscal) 500 mg PO BIDWM [facility] Last Admin: 12/27/16 16:35 Dose: 500 mg Cinacalcet (Sensipar) 30 mg PO DAILY [facility] Last Admin: 12/27/16 08:38 Dose: 30 mg Collagenase (Santyl) 1 applic TOP DAILY [facility] Last Admin: 12/27/16 09:00 Dose: 1 applic Diphenhydramine HCl (Benadryl) 25 mg PO Q6 PRN PRN Reason: Itching / Pruritus Last Admin: 12/17/16 09:53 Dose: 25 mg Docusate Sodium (Colace) 100 mg PO BID [facility] Last Admin: 12/27/16 16:34 Dose: 100 mg Epoetin Tha (Procrit) 20,000 unit IV [facility] [place] Last Admin: 12/27/16 11:43 Dose: 20,000 unit Ergocalciferol (Drisdol 50,000 Intl Units Cap) 1 cap PO WED [facility] Last Admin: 12/25/16 10:18 Dose: 1 cap Fluconazole (Diflucan) 100 mg PO DAILY [facility] Last Admin: 12/27/16 08:34 Dose: 100 mg Gabapentin (Neurontin) 300 mg PO TID [facility] Last Admin: 12/27/16 16:35 Dose: 300 mg Hydrocortisone (Anusol-Hc) 1 applic MD BID PRN PRN Reason: Inflammation Hydromorphone HCl (Dilaudid) 1 mg IVP Q4H PRN PRN Reason: Pain, severe (8-10) Last Admin: 12/27/16 20:40 Dose: 1 mg Meropenem 500 mg/ Sodium (Chloride) 100 mls @ 100 mls/hr IVPB DAILY@0100 [facility] Last Admin: 12/27/16 01:00 Dose: 100 mls/hr Gentamicin Sulfate/Sodium Chloride (Gentamicin 100mg/100ml Ns) 100 mg in 100 mls @ 100 mls/hr IVPB [facility] [place] Last Admin: 12/27/16 13:00 Dose: 100 mls/hr Tigecycline 25 mg/ Sodium (Chloride) 100 mls @ 100 mls/hr IVPB Q12 [facility] Last Admin: 12/27/16 20:50 Dose: 100 mls/hr Sodium Chloride (Sodium Chloride 0.45%) 500 mls @ 10 mls/hr IV .Q24H [facility] Last Admin: 12/27/16 15:32 Dose: 10 mls/hr Iron Sucrose 100 mg/ Sodium (Chloride) 105 mls @ 105 mls/hr IVPB [facility] [place] Stop: 12/30/16 09:59 Last Admin: 12/27/16 15:09 Dose: 105 mls/hr Daptomycin 650 mg/ Sodium (Chloride) 100 mls @ 100 mls/hr IVPB MWF [facility] Stop: 01/15/17 09:59 Last Admin: 12/27/16 16:30 Dose: 100 mls/hr Levalbuterol HCl (Xopenex) 0.63 mg INH Q6H PRN PRN Reason: Shortness of Breath Nystatin (Nystop Topical Powder) 1 applic TOP BID [facility] Last Admin: 12/27/16 16:35 Dose: 1 applic Ondansetron HCl (Zofran Inj) 4 mg IVP Q6 PRN PRN Reason: Nausea/Vomiting Last Admin: 09/19/16 10:26 Dose: 4 mg Pantoprazole Sodium (Protonix Ec Tab) 40 mg PO DAILY [facility] Last Admin: 12/27/16 08:38 Dose: 40 mg Repaglinide (Prandin) 0.5 mg PO TIDAC [facility] Last Admin: 12/27/16 16:33 Dose: 0.5 mg Sennosides (Senokot Tab) 25.8 mg PO HS [facility] Last Admin: 12/27/16 21:59 Dose: 25.8 mg Sevelamer HCl (Renagel) 1,600 mg PO TID [facility] Last Admin: 12/27/16 16:35 Dose: 1,600 mg Topiramate (Topamax) 50 mg PO BID [facility] Last Admin: 12/27/16 16:44 Dose: 50 mg Vitamin B Complex/Vit C/Folic Acid (Nephro-Ajay) 1 tab PO DAILY [facility] Last Admin: 12/27/16 08:36 Dose: 1 tab - Labs Labs: 12/27/16 06:00 12/27/16 06:00 PT 15.3 Seconds (9.8-13.1) H 12/02/16 13:05 INR 1.4 (0.9-1.2) H 12/02/16 13:05 APTT 37.0 Seconds (25.6-37.1) 12/02/16 13:05 Assessment and Plan (1) Diabetes Status: Chronic (2) ESRD (end stage renal disease) Status: Chronic (3) Cellulitis of leg Status: Chronic (4) Hyperlipidemia Status: Chronic (5) Back pain Status: Acute (6) Bacteremia due to Gram-negative bacteria Status: Acute (7) Diabetes mellitus type 2 with peripheral artery disease Status: Chronic (8) PVD (peripheral vascular disease) Status: Chronic (9) Osteomyelitis of right leg Status: Acute
[2016-12-28] MEDS: Meropenem 500 MG in Sodium Chloride 0.9% 100 ML IVPB SCH (00:49)
[2016-12-28] MEDS: SODIUM CHLORIDE 0.9% IVPB SCH ×2 (09:11→21:02)
[2016-12-28] MEDS: TIGECYCLINE IVPB SCH ×2 (09:11→21:02)
[2016-12-28] MEDS: Pantoprazole 40 mg EC Tab PO SCH (09:12)
[2016-12-28] MEDS: Santyl Collagenase OINTMENT TOP SCH (09:12)
[2016-12-28] MEDS: Multivitamin Vitamin B Complex (Nephro-Vite) Tab PO SCH (09:13)
[2016-12-28 09:51] LABS: BASO # 0.1 K/uL (0.0-0.2); BASO % 0.8 % (0.0-2.0); EOS # 0.8 K/uL (0.0-0.7); EOS % 7.4 % (0.0-4.0); HEMATOCRIT 34.3 % (34.0-47.0); LYMPH # 1.4 K/uL (1.0-4.3); LYMPH % 12.9 % (20.0-40.0); MEAN CELL VOLUME 98.8 fl (81.0-99.0); MEAN CORPUSCULAR HEMOGLOBIN 30.3 pg (27.0-31.0); MEAN CORPUSCULAR HGB CONC 30.7 g/dL (33.0-37.0); MEAN PLATELET VOLUME 8.9 fl (7.2-11.7); MONO # 1.4 K/uL (0.0-0.8); MONO % 13.7 % (0.0-10.0); NEUT # 6.9 K/uL (1.8-7.0); NEUT % 65.2 % (50.0-75.0); RED CELL DISTRIBUTION WIDTH 20.2 % (11.5-14.5); WHITE BLOOD COUNT 10.5 K/uL (4.8-10.8)
[2016-12-28 10:06] LABS: ALB/GLOB RATIO 0.8 (1.0-2.1); BILIRUBIN,TOTAL 0.6 mg/dl (0.2-1.3); CALCIUM 8.9 mg/dL (8.4-10.2); POTASSIUM 4.5 MMOL/L (3.6-5.0); TOTAL PROTEIN 7.4 G/DL (6.3-8.2)
--- NOTE | 2016-12-28 12:28 | CP.PCM.PN ---
Subjective - Date & Time of Evaluation Date of Evaluation: 12/28/16 Time of Evaluation: 12:24 - Subjective Subjective: Patient has had low grade fever (99.7 and 99.2) last night, but is afebrile (97 ) this morning. Still with a dry cough, relieved by Tessalon perles. She does not have shortness of breath, and we are avoiding Xopenex if possible because of previous SVT. 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 So far the wound culture and the two blood cultures (one from Permacath and one from PICC line) are negative. The wbc is down also, and this is good. Glucoses satisfactory. The trip to the ICU on (necessitated by SVT and need for IV adenosine) was emotionally stressful, so patient is having a 2 day break and not getting out of bed. There is less thigh pain today. I do not believe this is phantom limb pain. It is electrical and shooting. It seems more neuritic than vascular. I am concerned that the new Maurice type lift which goes between the thighs like a "diaper" is putting great pressure on the nerves in the thigh as this 200+ pound patient is lifted out of the bed and into the wheelchair. I have recommended that the "sling" be padded around the thighs. The SGOT is about 2x normal and must be watched. There is a procalcitonin level of < 0.05. This is nice, but I believe I ordered a PTH (intact) level.... Objective - Vital Signs/Intake and Output Vital Signs (last 24 hours): Temp Pulse Resp BP Pulse Ox 97.9 F 109 H 20 109/71 93 L 12/28/16 08:32 12/28/16 08:32 12/28/16 08:32 12/28/16 08:32 12/28/16 08:32 - Medications Medications: Current Medications Acetaminophen (Tylenol 325mg Tab) 650 mg PO Q4 PRN PRN Reason: Fever >100.4 F Last Admin: 12/26/16 19:40 Dose: 650 mg Acetaminophen (Tylenol 325mg Tab) 650 mg PO Q4 PRN PRN Reason: Pain, moderate (4-7) Last Admin: 12/26/16 05:14 Dose: 650 mg Apixaban (Eliquis) 5 mg PO BID [facility] PRN Reason: Protocol Last Admin: 12/28/16 09:12 Dose: 5 mg Aspirin (Ecotrin) 81 mg PO DAILY [facility] Last Admin: 12/28/16 09:13 Dose: 81 mg Atorvastatin Calcium (Lipitor) 40 mg PO DAILY [facility] Last Admin: 12/28/16 09:14 Dose: 40 mg Benzocaine/Menthol (Cepacol Sore Throat) 1 mindi PO Q2 PRN PRN Reason: Sore Throat Last Admin: 12/27/16 16:32 Dose: 1 mindi Benzonatate (Tessalon Perles) 200 mg PO TID PRN PRN Reason: Cough Last Admin: 12/28/16 02:53 Dose: 200 mg Calcium Carbonate (Oscal) 500 mg PO BIDWM [facility] Last Admin: 12/28/16 09:12 Dose: 500 mg Cinacalcet (Sensipar) 30 mg PO DAILY [facility] Last Admin: 12/28/16 09:15 Dose: 30 mg Collagenase (Santyl) 1 applic TOP DAILY [facility] Last Admin: 12/28/16 09:12 Dose: 1 applic Diphenhydramine HCl (Benadryl) 25 mg PO Q6 PRN PRN Reason: Itching / Pruritus Last Admin: 12/17/16 09:53 Dose: 25 mg Docusate Sodium (Colace) 100 mg PO BID [facility] Last Admin: 12/28/16 09:13 Dose: 100 mg Epoetin Tha (Procrit) 20,000 unit IV MWF [facility] Last Admin: 12/27/16 11:43 Dose: 20,000 unit Ergocalciferol (Drisdol 50,000 Intl Units Cap) 1 cap PO WED [facility] Last Admin: 12/25/16 10:18 Dose: 1 cap Fluconazole (Diflucan) 100 mg PO DAILY [facility] Last Admin: 12/28/16 09:13 Dose: 100 mg Gabapentin (Neurontin) 300 mg PO TID [facility] Last Admin: 12/28/16 12:13 Dose: 300 mg Hydrocortisone (Anusol-Hc) 1 applic [place] BID PRN PRN Reason: Inflammation Hydromorphone HCl (Dilaudid) 1 mg IVP Q4H PRN PRN Reason: Pain, severe (8-10) Last Admin: 12/28/16 09:09 Dose: 1 mg Meropenem 500 mg/ Sodium (Chloride) 100 mls @ 100 mls/hr IVPB DAILY@0100 [facility] Last Admin: 12/28/16 00:49 Dose: 100 mls/hr Gentamicin Sulfate/Sodium Chloride (Gentamicin 100mg/100ml Ns) 100 mg in 100 mls @ 100 mls/hr [place] [facility] Last Admin: 12/27/16 13:00 Dose: 100 mls/hr Tigecycline 25 mg/ Sodium (Chloride) 100 mls @ 100 mls/hr IVPB Q12 [facility] Last Admin: 12/28/16 09:11 Dose: 100 mls/hr Sodium Chloride (Sodium Chloride 0.45%) 500 mls @ 10 mls/hr IV .Q24H [facility] Last Admin: 12/27/16 15:32 Dose: 10 mls/hr Iron Sucrose 100 mg/ Sodium (Chloride) 105 mls @ 105 mls/hr IVPB [facility] Stop: 12/30/16 09:59 Last Admin: 12/27/16 15:09 Dose: 105 mls/hr Daptomycin 650 mg/ Sodium (Chloride) 100 mls @ 100 mls/hr IVPB [facility] Stop: 01/15/17 09:59 Last Admin: 12/27/16 16:30 Dose: 100 mls/hr Levalbuterol HCl (Xopenex) 0.63 mg INH Q6H PRN PRN Reason: Shortness of Breath Nystatin (Nystop Topical Powder) 1 applic TOP BID [facility] Last Admin: 12/28/16 09:14 Dose: 1 applic Ondansetron HCl (Zofran Inj) 4 mg IVP Q6 PRN PRN Reason: Nausea/Vomiting Last Admin: 09/19/16 10:26 Dose: 4 mg Pantoprazole Sodium (Protonix Ec Tab) 40 mg PO DAILY [facility] Last Admin: 12/28/16 09:12 Dose: 40 mg Repaglinide (Prandin) 0.5 mg PO TIDAC [facility] Last Admin: 12/28/16 12:12 Dose: 0.5 mg Sennosides (Senokot Tab) 25.8 mg PO HS [facility] Last Admin: 12/27/16 21:59 Dose: 25.8 mg Sevelamer HCl (Renagel) 1,600 mg PO TID [facility] Last Admin: 12/28/16 12:13 Dose: 1,600 mg Topiramate (Topamax) 50 mg PO BID [facility] Last Admin: 12/28/16 09:14 Dose: 50 mg Vitamin B Complex/Vit C/Folic Acid (Nephro-Ajay) 1 tab PO DAILY [facility] Last Admin: 12/28/16 09:13 Dose: 1 tab - Labs Labs: 12/28/16 08:20 12/28/16 08:20 PT 15.3 Seconds (9.8-13.1) H 12/02/16 13:05 INR 1.4 (0.9-1.2) H 12/02/16 13:05 APTT 37.0 Seconds (25.6-37.1) 12/02/16 13:05 Microbiology 12/26/16 07:00 Naris MRSA Culture (Admit) - Final MRSA NOT DETECTED 12/27/16 17:41 Leg - Right Gram Stain - Final 12/27/16 17:41 Leg - Right Wound Culture - Preliminary NO GROWTH AFTER 24 HOURS 12/27/16 09:40 Blood-Venous Blood Culture - Preliminary NO GROWTH AFTER 24 HOURS 12/27/16 09:55 Blood-Venous Blood Culture - Preliminary NO GROWTH AFTER 24 HOURS 12/24/16 07:27 Throat Group A Strep Throat Culture - Final NO BETA STREP GROUP A ISOLATED. - Constitutional Appears: No Acute Distress - Head Exam Head Exam: NORMAL INSPECTION - ENT Exam ENT Exam: Mucous Membranes Moist - Neck Exam Neck Exam: Normal Inspection Additional comments: R subclavian permacath intact. It was just redressed yesterday and looks good. - Respiratory Exam Respiratory Exam: Clear to Ausculation Bilateral, NORMAL BREATHING PATTERN - Cardiovascular Exam Cardiovascular Exam: REGULAR RHYTHM, +S1 - GI/Abdominal Exam GI & Abdominal Exam: Soft - Extremities Exam Additional comments: Wound vac Right BK areas is intact with minimal drainage - no leaks. Right patellar dressing intact. L femoral vein PICC line intact. Hands are warm. - Back Exam Back Exam: NORMAL INSPECTION - Neurological Exam Neurological Exam: Alert, CN II-XII Intact, Oriented x3 - Psychiatric Exam Psychiatric exam: Normal Affect, Normal Mood - Skin Skin Exam: Dry, Normal Color, Warm Assessment and Plan (1) Status post below knee amputation of right lower extremity Assessment & Plan: Continues on antibiotics because of prior osteomyelitis. Awaiting reculture results. Slow healing by secondary intention- with no odor or purulence. Status: Acute (2) ESRD (end stage renal disease) on dialysis Status: Chronic (3) DM type 2 (diabetes mellitus, type 2) Status: Chronic (4) Coagulopathy Status: Chronic (5) Peripheral arterial occlusive disease Status: Chronic
--- NOTE | 2016-12-28 13:59 | CP.PCM.PN ---
Subjective - Date & Time of Evaluation Date of Evaluation: 12/28/16 Time of Evaluation: 03:30 - Subjective Subjective: Feels better. No wheezing Objective - Vital Signs/Intake and Output Vital Signs (last 24 hours): Temp Pulse Resp BP Pulse Ox 97.9 F 109 H 20 109/71 93 L 12/28/16 08:32 12/28/16 08:32 12/28/16 08:32 12/28/16 08:32 12/28/16 08:32 - Medications Medications: Current Medications Acetaminophen (Tylenol 325mg Tab) 650 mg PO Q4 PRN PRN Reason: Fever >100.4 F Last Admin: 12/26/16 19:40 Dose: 650 mg Acetaminophen (Tylenol 325mg Tab) 650 mg PO Q4 PRN PRN Reason: Pain, moderate (4-7) Last Admin: 12/26/16 05:14 Dose: 650 mg Apixaban (Eliquis) 5 mg PO BID [facility] PRN Reason: Protocol Last Admin: 12/28/16 09:12 Dose: 5 mg Aspirin (Ecotrin) 81 mg PO DAILY [facility] Last Admin: 12/28/16 09:13 Dose: 81 mg Atorvastatin Calcium (Lipitor) 40 mg PO DAILY [facility] Last Admin: 12/28/16 09:14 Dose: 40 mg Benzocaine/Menthol (Cepacol Sore Throat) 1 mindi PO Q2 PRN PRN Reason: Sore Throat Last Admin: 12/27/16 16:32 Dose: 1 mindi Benzonatate (Tessalon Perles) 200 mg PO TID PRN PRN Reason: Cough Last Admin: 12/28/16 02:53 Dose: 200 mg Calcium Carbonate (Oscal) 500 mg PO BIDWM [facility] Last Admin: 12/28/16 09:12 Dose: 500 mg Cinacalcet (Sensipar) 30 mg PO DAILY [facility] Last Admin: 12/28/16 09:15 Dose: 30 mg Collagenase (Santyl) 1 applic TOP DAILY [facility] Last Admin: 12/28/16 09:12 Dose: 1 applic Diphenhydramine HCl (Benadryl) 25 mg PO Q6 PRN PRN Reason: Itching / Pruritus Last Admin: 12/17/16 09:53 Dose: 25 mg Docusate Sodium (Colace) 100 mg PO BID [facility] Last Admin: 12/28/16 09:13 Dose: 100 mg Epoetin Tha (Procrit) 20,000 unit IV [facility] [place] Last Admin: 12/27/16 11:43 Dose: 20,000 unit Ergocalciferol (Drisdol 50,000 Intl Units Cap) 1 cap PO WED [facility] Last Admin: 12/25/16 10:18 Dose: 1 cap Fluconazole (Diflucan) 100 mg PO DAILY [facility] Last Admin: 12/28/16 09:13 Dose: 100 mg Gabapentin (Neurontin) 300 mg PO TID [facility] Last Admin: 12/28/16 12:13 Dose: 300 mg Hydrocortisone (Anusol-Hc) 1 applic [place] BID PRN PRN Reason: Inflammation Hydromorphone HCl (Dilaudid) 1 mg IVP Q4H PRN PRN Reason: Pain, severe (8-10) Last Admin: 12/28/16 09:09 Dose: 1 mg Meropenem 500 mg/ Sodium (Chloride) 100 mls @ 100 mls/hr IVPB DAILY@0100 [facility] Last Admin: 12/28/16 00:49 Dose: 100 mls/hr Gentamicin Sulfate/Sodium Chloride (Gentamicin 100mg/100ml Ns) 100 mg in 100 mls @ 100 mls/hr IVPB [facility] [place] Last Admin: 12/27/16 13:00 Dose: 100 mls/hr Tigecycline 25 mg/ Sodium (Chloride) 100 mls @ 100 mls/hr IVPB Q12 [facility] Last Admin: 12/28/16 09:11 Dose: 100 mls/hr Sodium Chloride (Sodium Chloride 0.45%) 500 mls @ 10 mls/hr IV .Q24H [facility] Last Admin: 12/27/16 15:32 Dose: 10 mls/hr Iron Sucrose 100 mg/ Sodium (Chloride) 105 mls @ 105 mls/hr IVPB [facility] [place] Stop: 12/30/16 09:59 Last Admin: 12/27/16 15:09 Dose: 105 mls/hr Daptomycin 650 mg/ Sodium (Chloride) 100 mls @ 100 mls/hr IVPB [facility] [place] Stop: 01/15/17 09:59 Last Admin: 12/27/16 16:30 Dose: 100 mls/hr Levalbuterol HCl (Xopenex) 0.63 mg INH Q6H PRN PRN Reason: Shortness of Breath Nystatin (Nystop Topical Powder) 1 applic TOP BID [facility] Last Admin: 12/28/16 09:14 Dose: 1 applic Ondansetron HCl (Zofran Inj) 4 mg IVP Q6 PRN PRN Reason: Nausea/Vomiting Last Admin: 09/19/16 10:26 Dose: 4 mg Pantoprazole Sodium (Protonix Ec Tab) 40 mg PO DAILY [facility] Last Admin: 12/28/16 09:12 Dose: 40 mg Repaglinide (Prandin) 0.5 mg PO TIDAC [facility] Last Admin: 12/28/16 12:12 Dose: 0.5 mg Sennosides (Senokot Tab) 25.8 mg PO HS [facility] Last Admin: 12/27/16 21:59 Dose: 25.8 mg Sevelamer HCl (Renagel) 1,600 mg PO TID [facility] Last Admin: 12/28/16 12:13 Dose: 1,600 mg Topiramate (Topamax) 50 mg PO BID [facility] Last Admin: 12/28/16 09:14 Dose: 50 mg Vitamin B Complex/Vit C/Folic Acid (Nephro-Ajay) 1 tab PO DAILY [facility] Last Admin: 12/28/16 09:13 Dose: 1 tab - Labs Labs: 12/28/16 08:20 12/28/16 08:20 PT 15.3 Seconds (9.8-13.1) H 12/02/16 13:05 INR 1.4 (0.9-1.2) H 12/02/16 13:05 APTT 37.0 Seconds (25.6-37.1) 12/02/16 13:05 - Respiratory Exam Additional comments: Lungs clear - Cardiovascular Exam Cardiovascular Exam: REGULAR RHYTHM Additional comments: Sinus tach 102/min - Extremities Exam Additional comments: B/L BKA Assessment and Plan - Assessment and Plan (Free Text) Assessment: ESRD on HD MWF Tachycardia PVD, B/L BKA Plan: Continue HD per schedule Lavbs stable
[2016-12-28] MEDS: Benzocaine/Menthol (Cepacol) Lozenge PO PRN (19:57)
--- NOTE | 2016-12-28 21:03 | PN ---
ENDOCRINE FOLLOWUP NOTE DATE: LOCATION: Room 661. SUBJECTIVE: This is a 46-year-old female with recent uncontrolled type 2 insulin requiring diabetes, now being followed closely for metabolic management. Her glycemic levels are fluctuating, but must improved at this time. LABORATORY DATA: Latest chemistries showed a BUN of 38, sodium 143, potassium 4.5, chloride 105, CO2 25, glucose 77 and creatinine 4.7. PLAN: At this time, we will continue the low-dose oral hypoglycemic drug therapy as given with Prandin given as 0.5 mg p.o. t.i.d. before meals as ordered. We will titrate incrementally as indicated to optimize metabolic control. We will follow and advise accordingly. Irene Ambrose MD
--- NOTE | 2016-12-28 22:47 | CP.PCM.PN ---
Subjective - Date & Time of Evaluation Date of Evaluation: 12/28/16 Time of Evaluation: 20:00 - Subjective Subjective: Patient is more stable. She is Xopenex that is believed to be the cause of her Tachycardia. She is not in distress. She is transferred to the regular floor. There is no reported seizures. Her blood glucose is fluctuating, Her Blood Glucose is not causing complications and her DM looks in need for control of her low Glucose values. Her LFT show high double fold AST and somewhat high ALP. She has no seizures and is on Topamax 50 mg Q 12 hrs. She is receiving Hemodialysis on ,, for her ESRD. Objective - Vital Signs/Intake and Output Vital Signs (last 24 hours): Temp Pulse Resp BP Pulse Ox 98.6 F 107 H 20 129/74 95 12/28/16 16:18 12/28/16 16:18 12/28/16 16:18 12/28/16 16:18 12/28/16 16:18 - Medications Medications: Current Medications Acetaminophen (Tylenol 325mg Tab) 650 mg PO Q4 PRN PRN Reason: Fever >100.4 F Last Admin: 12/26/16 19:40 Dose: 650 mg Acetaminophen (Tylenol 325mg Tab) 650 mg PO Q4 PRN PRN Reason: Pain, moderate (4-7) Last Admin: 12/26/16 05:14 Dose: 650 mg Apixaban (Eliquis) 5 mg PO BID [facility] PRN Reason: Protocol Last Admin: 12/28/16 16:11 Dose: 5 mg Aspirin (Ecotrin) 81 mg PO DAILY [facility] Last Admin: 12/28/16 09:13 Dose: 81 mg Atorvastatin Calcium (Lipitor) 40 mg PO DAILY [facility] Last Admin: 12/28/16 09:14 Dose: 40 mg Benzocaine/Menthol (Cepacol Sore Throat) 1 mindi PO Q2 PRN PRN Reason: Sore Throat Last Admin: 12/28/16 19:57 Dose: 1 mindi Benzonatate (Tessalon Perles) 200 mg PO TID PRN PRN Reason: Cough Last Admin: 12/28/16 16:49 Dose: 200 mg Calcium Carbonate (Oscal) 500 mg PO BIDWM [facility] Last Admin: 12/28/16 16:08 Dose: 500 mg Cinacalcet (Sensipar) 30 mg PO DAILY [facility] Last Admin: 12/28/16 09:15 Dose: 30 mg Collagenase (Santyl) 1 applic TOP DAILY [facility] Last Admin: 12/28/16 09:12 Dose: 1 applic Diphenhydramine HCl (Benadryl) 25 mg PO Q6 PRN PRN Reason: Itching / Pruritus Last Admin: 12/17/16 09:53 Dose: 25 mg Docusate Sodium (Colace) 100 mg PO BID [facility] Last Admin: 12/28/16 16:09 Dose: 100 mg Epoetin Tha (Procrit) 20,000 unit IV [facility] Last Admin: 12/27/16 11:43 Dose: 20,000 unit Ergocalciferol (Drisdol 50,000 Intl Units Cap) 1 cap PO WED [facility] Last Admin: 12/25/16 10:18 Dose: 1 cap Fluconazole (Diflucan) 100 mg PO DAILY [facility] Last Admin: 12/28/16 09:13 Dose: 100 mg Gabapentin (Neurontin) 300 mg PO TID [facility] Last Admin: 12/28/16 16:08 Dose: 300 mg Hydrocortisone (Anusol-Hc) 1 applic [place] BID PRN PRN Reason: Inflammation Hydromorphone HCl (Dilaudid) 1 mg IVP Q4H PRN PRN Reason: Pain, severe (8-10) Last Admin: 12/28/16 19:48 Dose: 1 mg Meropenem 500 mg/ Sodium (Chloride) 100 mls @ 100 mls/hr IVPB DAILY@0100 [facility] Last Admin: 12/28/16 00:49 Dose: 100 mls/hr Gentamicin Sulfate/Sodium Chloride (Gentamicin 100mg/100ml Ns) 100 mg in 100 mls @ 100 mls/hr IVPB [facility] Last Admin: 12/27/16 13:00 Dose: 100 mls/hr Tigecycline 25 mg/ Sodium (Chloride) 100 mls @ 100 mls/hr IVPB Q12 [facility] Last Admin: 12/28/16 21:02 Dose: 100 mls/hr Sodium Chloride (Sodium Chloride 0.45%) 500 mls @ 10 mls/hr IV .Q24H [facility] Last Admin: 12/28/16 16:11 Dose: Not Given Iron Sucrose 100 mg/ Sodium (Chloride) 105 mls @ 105 mls/hr IVPB [facility] Stop: 12/30/16 09:59 Last Admin: 12/27/16 15:09 Dose: 105 mls/hr Daptomycin 650 mg/ Sodium (Chloride) 100 mls @ 100 mls/hr IVPB [facility] Stop: 01/15/17 09:59 Last Admin: 12/27/16 16:30 Dose: 100 mls/hr Levalbuterol HCl (Xopenex) 0.63 mg INH Q6H PRN PRN Reason: Shortness of Breath Nystatin (Nystop Topical Powder) 1 applic TOP BID [facility] Last Admin: 12/28/16 16:08 Dose: 1 applic Ondansetron HCl (Zofran Inj) 4 mg IVP Q6 PRN PRN Reason: Nausea/Vomiting Last Admin: 09/19/16 10:26 Dose: 4 mg Pantoprazole Sodium (Protonix Ec Tab) 40 mg PO DAILY [facility] Last Admin: 12/28/16 09:12 Dose: 40 mg Repaglinide (Prandin) 0.5 mg PO TIDAC [facility] Last Admin: 12/28/16 16:08 Dose: 0.5 mg Sennosides (Senokot Tab) 25.8 mg PO HS [facility] Last Admin: 12/28/16 21:05 Dose: 25.8 mg Sevelamer HCl (Renagel) 1,600 mg PO TID [facility] Last Admin: 12/28/16 16:08 Dose: 1,600 mg Topiramate (Topamax) 50 mg PO BID [facility] Last Admin: 12/28/16 16:09 Dose: 50 mg Vitamin B Complex/Vit C/Folic Acid (Nephro-Ajay) 1 tab PO DAILY [facility] Last Admin: 12/28/16 09:13 Dose: 1 tab - Labs Labs: 12/28/16 08:20 12/28/16 08:20 PT 15.3 Seconds (9.8-13.1) H 12/02/16 13:05 INR 1.4 (0.9-1.2) H 12/02/16 13:05 APTT 37.0 Seconds (25.6-37.1) 12/02/16 13:05 Assessment and Plan (1) Diabetes Status: Chronic (2) ESRD (end stage renal disease) Status: Chronic (3) Cellulitis of leg Status: Chronic (4) Hyperlipidemia Status: Chronic (5) Back pain Status: Acute (6) Bacteremia due to Gram-negative bacteria Status: Acute (7) Diabetes mellitus type 2 with peripheral artery disease Status: Chronic (8) PVD (peripheral vascular disease) Status: Chronic (9) Osteomyelitis of right leg Status: Acute
[2016-12-29] MEDS: Meropenem 500 MG in Sodium Chloride 0.9% 100 ML IVPB SCH (00:39)
[2016-12-29] MEDS: SODIUM CHLORIDE 0.9% IVPB SCH ×2 (08:43→21:10)
[2016-12-29] MEDS: TIGECYCLINE IVPB SCH ×2 (08:43→21:10)
[2016-12-29] MEDS: Multivitamin Vitamin B Complex (Nephro-Vite) Tab PO SCH (08:45)
[2016-12-29] MEDS: Santyl Collagenase OINTMENT TOP SCH (08:45)
[2016-12-29] MEDS: Pantoprazole 40 mg EC Tab PO SCH (08:46)
--- NOTE | 2016-12-29 10:47 | CP.PCM.PN ---
Subjective - Date & Time of Evaluation Date of Evaluation: 12/29/16 Time of Evaluation: 10:41 - Subjective Subjective: Patient is comfortable and looking forward to getting out of bed into the wheelchair. She has had no fevers past 24 hours. Cough persists - it is mild and dry. No dyspnea. She feels as if the 2500 cc of fluid removed at last dialysis was not quite enough. She has not needed Xopenex aerosol treatments. Blood cultures done 12/28 remain negative, but unfortunately the wound culture from the right BK site is growing gram neg rods (prob Klebsiella still). Nevertheless, the wound is granulating in nicely. I have not given her the wound culture result. Will await further discussion with vascular surgeon and with Dr. Lemon (ID) before giving her this news - so that everyone can be on the same page. For now we will continue the same antibiotics. The previous Klebsiella was sensitive to tigacycline and gentamicin, both of which she is receiving. Appetite OK. BM's OK. No pain at this time. We have cut back on Accucheks due to lack of access areas for sticks. We will check glucose only on dialysis days since it has been stable and not a problem. Objective - Vital Signs/Intake and Output Vital Signs (last 24 hours): Temp Pulse Resp BP Pulse Ox 97.5 F L 108 H 17 155/87 H 93 L 12/29/16 07:29 12/29/16 07:29 12/29/16 07:29 12/29/16 07:29 12/29/16 07:29 - Medications Medications: Current Medications Acetaminophen (Tylenol 325mg Tab) 650 mg PO Q4 PRN PRN Reason: Fever >100.4 F Last Admin: 12/26/16 19:40 Dose: 650 mg Acetaminophen (Tylenol 325mg Tab) 650 mg PO Q4 PRN PRN Reason: Pain, moderate (4-7) Last Admin: 12/26/16 05:14 Dose: 650 mg Apixaban (Eliquis) 5 mg PO BID [facility] PRN Reason: Protocol Last Admin: 12/29/16 08:44 Dose: 5 mg Aspirin (Ecotrin) 81 mg PO DAILY [facility] Last Admin: 12/29/16 08:46 Dose: 81 mg Atorvastatin Calcium (Lipitor) 40 mg PO DAILY [facility] Last Admin: 12/29/16 08:44 Dose: 40 mg Benzocaine/Menthol (Cepacol Sore Throat) 1 mindi PO Q2 PRN PRN Reason: Sore Throat Last Admin: 12/28/16 19:57 Dose: 1 mindi Benzonatate (Tessalon Perles) 200 mg PO TID PRN PRN Reason: Cough Last Admin: 12/28/16 16:49 Dose: 200 mg Calcium Carbonate (Oscal) 500 mg PO BIDWM REPL[facility]ED [facility] Last Admin: 12/29/16 08:45 Dose: 500 mg Cinacalcet (Sensipar) 30 mg PO DAILY [facility] Last Admin: 12/29/16 08:45 Dose: 30 mg Collagenase (Santyl) 1 applic TOP DAILY [facility] Last Admin: 12/29/16 08:45 Dose: 1 applic Diphenhydramine HCl (Benadryl) 25 mg PO Q6 PRN PRN Reason: Itching / Pruritus Last Admin: 12/17/16 09:53 Dose: 25 mg Docusate Sodium (Colace) 100 mg PO BID [facility] Last Admin: 12/29/16 08:44 Dose: 100 mg Epoetin Tha (Procrit) 20,000 unit IV [facility] Last Admin: 12/27/16 11:43 Dose: 20,000 unit Ergocalciferol (Drisdol 50,000 Intl Units Cap) 1 cap PO WED [facility] Last Admin: 12/25/16 10:18 Dose: 1 cap Fluconazole (Diflucan) 100 mg PO DAILY [facility] Last Admin: 12/28/16 09:13 Dose: 100 mg Gabapentin (Neurontin) 300 mg PO TID [facility] Last Admin: 12/29/16 08:44 Dose: 300 mg Hydrocortisone (Anusol-Hc) 1 applic [place] BID PRN PRN Reason: Inflammation Hydromorphone HCl (Dilaudid) 1 mg IVP Q4H PRN PRN Reason: Pain, severe (8-10) Last Admin: 12/29/16 06:39 Dose: 1 mg Meropenem 500 mg/ Sodium (Chloride) 100 mls @ 100 mls/hr IVPB DAILY@0100 [facility] Last Admin: 12/29/16 00:39 Dose: 100 mls/hr Gentamicin Sulfate/Sodium Chloride (Gentamicin 100mg/100ml Ns) 100 mg in 100 mls @ 100 mls/hr IVPB MWF [facility]PL[facility] Last Admin: 12/27/16 13:00 Dose: 100 mls/hr Tigecycline 25 mg/ Sodium (Chloride) 100 mls @ 100 mls/hr IVPB Q12 [facility] Last Admin: 12/29/16 08:43 Dose: 100 mls/hr Sodium Chloride (Sodium Chloride 0.45%) 500 mls @ 10 mls/hr IV .Q24H [facility] Last Admin: 12/28/16 16:11 Dose: Not Given Iron Sucrose 100 mg/ Sodium (Chloride) 105 mls @ 105 mls/hr IVPB [facility] Stop: 12/30/16 09:59 Last Admin: 12/27/16 15:09 Dose: 105 mls/hr Daptomycin 650 mg/ Sodium (Chloride) 100 mls @ 100 mls/hr IVPB [facility] Stop: 01/15/17 09:59 Last Admin: 12/27/16 16:30 Dose: 100 mls/hr Levalbuterol HCl (Xopenex) 0.63 mg INH Q6H PRN PRN Reason: Shortness of Breath Nystatin (Nystop Topical Powder) 1 applic TOP BID [facility] Last Admin: 12/29/16 08:45 Dose: 1 applic Ondansetron HCl (Zofran Inj) 4 mg IVP Q6 PRN PRN Reason: Nausea/Vomiting Last Admin: 09/19/16 10:26 Dose: 4 mg Pantoprazole Sodium (Protonix Ec Tab) 40 mg PO DAILY [facility] Last Admin: 12/29/16 08:46 Dose: 40 mg Repaglinide (Prandin) 0.5 mg PO TIDAC [facility]PL[facility] Last Admin: 12/29/16 08:45 Dose: 0.5 mg Sennosides (Senokot Tab) 25.8 mg PO HS [facility] Last Admin: 12/28/16 21:05 Dose: 25.8 mg Sevelamer HCl (Renagel) 1,600 mg PO TID [facility] Last Admin: 12/29/16 08:43 Dose: 1,600 mg Topiramate (Topamax) 50 mg PO BID [facility] Last Admin: 12/29/16 08:44 Dose: 50 mg Vitamin B Complex/Vit C/Folic Acid (Nephro-Ajay) 1 tab PO DAILY [facility] Last Admin: 12/29/16 08:45 Dose: 1 tab - Labs Labs: 12/28/16 08:20 12/28/16 08:20 PT 15.3 Seconds (9.8-13.1) H 12/02/16 13:05 INR 1.4 (0.9-1.2) H 12/02/16 13:05 APTT 37.0 Seconds (25.6-37.1) 12/02/16 13:05 Microbiology 12/27/16 17:41 Leg - Right Gram Stain - Final 12/27/16 17:41 Leg - Right Wound Culture - Preliminary Gram Negative Pardeep 12/27/16 10:50 Nose MRSA Culture (Admit) - Final MRSA NOT DETECTED 12/27/16 14:00 Blood-Thru Central Line Blood Culture - Preliminary NO GROWTH AFTER 24 HOURS 12/26/16 07:00 Naris MRSA Culture (Admit) - Final MRSA NOT DETECTED 12/27/16 09:40 Blood-Venous Blood Culture - Preliminary NO GROWTH AFTER 24 HOURS 12/27/16 09:55 Blood-Venous Blood Culture - Preliminary NO GROWTH AFTER 24 HOURS - Constitutional Appears: No Acute Distress - Head Exam Head Exam: NORMAL INSPECTION - Eye Exam Eye Exam: Normal appearance - ENT Exam ENT Exam: Mucous Membranes Moist - Neck Exam Neck Exam: Normal Inspection Additional comments: R subclavian Permacath intact. - Respiratory Exam Respiratory Exam: NORMAL BREATHING PATTERN Additional comments: Some inspiratory crackles at bases, carla. right base. No wheezes. - GI/Abdominal Exam GI & Abdominal Exam: Soft - Extremities Exam Additional comments: Right BK wound vac is intact. R patellar dressing intack. Residual L limb OK. Upper extremities as before, hands warm but with weak pulses. L femoral vein PICC line intact. - Back Exam Back Exam: NORMAL INSPECTION - Neurological Exam Neurological Exam: Alert, CN II-XII Intact, Oriented x3 - Psychiatric Exam Psychiatric exam: Normal Affect, Normal Mood - Skin Skin Exam: Dry, Normal Color, Warm Assessment and Plan (1) Status post below knee amputation of right lower extremity Assessment & Plan: Awaiting further input from vascular surgeon and infectious disease specialist. Healing does seem to be occurring despite positive wound culture. We are still fighting to preserve the knee and not have to resort to an above the knee amputation. We should not discuss culture results with patient until all have had a chance to consider and discuss. Status: Acute (2) ESRD (end stage renal disease) on dialysis Assessment & Plan: Nephrologists may consider taking off more fluid. Status: Chronic (3) DM type 2 (diabetes mellitus, type 2) Assessment & Plan: Stable Status: Chronic (4) Coagulopathy Status: Chronic (5) Peripheral arterial occlusive disease Status: Chronic
[2016-12-29] MEDS: Benzocaine/Menthol (Cepacol) Lozenge PO PRN (12:09)
--- NOTE | 2016-12-29 17:20 | PN ---
ENDO FOLLOWUP NOTE DATE: LOCATIONS: Room #661. This is a 46-year-old female with recent right below knee amputation for underlying osteomyelitis and also had recent leukocytosis with ongoing IV antibiotic management and is now being followed closely for metabolic management. Her glycemic level are much improved at this time and the latest glucose levels have ranged from 101 to 138 mg/dL. Her latest chemistry showed a BUN of 38, sodium 143, potassium 4.5, chloride 105, CO2 is 25, glucose 77 and creatinine 4.7. So, at this time, we will continue the low dose of Prandin given as 0.5 mg p.o. t.i.d. before meal as ordered. We will titrate incrementally as indicated to optimize metabolic control. We will follow and advice accordingly. Irene Ambrose MD
[2016-12-29] MEDS: guaiFENesin DM 200 mg-20 mg/10 ml UD PO PRN ×2 (17:25→23:31)
--- NOTE | 2016-12-29 23:21 | CP.PCM.PN ---
Subjective - Date & Time of Evaluation Date of Evaluation: 12/29/16 Time of Evaluation: 21:00 - Subjective Subjective: Unfortunately her wound cultures are growing Gram negative Rods. Her LFTs are showing normal ALT, double fold AST and 50% high ALP. I saw patients treated by IV Ig G for infections successfully. However the LFT need to be normal. The most important LFT result is ALT or SGPT, and it is normal. We can monitor her daily and D/C IV Ig G pending her progress and her LFT status. Otherwise her clinical condition is unchanged, she is awake, alert, oriented, interactive. She is followed by Endocrinology for her DM and by Nephrology for her ESRD and will be receiving Hemodialysis in AM. Patient is not in distress and is treated in the regular floor. She is on Topamax and she has no seizures. Objective - Vital Signs/Intake and Output Vital Signs (last 24 hours): Temp Pulse Resp BP Pulse Ox 97.7 F 98 H 17 135/59 L 94 L 12/29/16 16:03 12/29/16 16:03 12/29/16 16:03 12/29/16 16:03 12/29/16 16:03 - Medications Medications: Current Medications Acetaminophen (Tylenol 325mg Tab) 650 mg PO Q4 PRN PRN Reason: Fever >100.4 F Last Admin: 12/26/16 19:40 Dose: 650 mg Acetaminophen (Tylenol 325mg Tab) 650 mg PO Q4 PRN PRN Reason: Pain, moderate (4-7) Last Admin: 12/26/16 05:14 Dose: 650 mg Apixaban (Eliquis) 5 mg PO BID [facility] PRN Reason: Protocol Last Admin: 12/29/16 17:26 Dose: 5 mg Aspirin (Ecotrin) 81 mg PO DAILY [facility] Last Admin: 12/29/16 08:46 Dose: 81 mg Atorvastatin Calcium (Lipitor) 40 mg PO DAILY [facility] Last Admin: 12/29/16 08:44 Dose: 40 mg Benzocaine/Menthol (Cepacol Sore Throat) 1 mindi PO Q2 PRN PRN Reason: Sore Throat Last Admin: 12/29/16 12:09 Dose: 1 mindi Benzonatate (Tessalon Perles) 200 mg PO TID PRN PRN Reason: Cough Last Admin: 08/19/17 16:49 Dose: 200 mg Calcium Carbonate (Oscal) 500 mg PO BIDWM [facility] Last Admin: 12/29/16 17:25 Dose: 500 mg Cinacalcet (Sensipar) 30 mg PO DAILY [facility] Last Admin: 12/29/16 08:45 Dose: 30 mg Collagenase (Santyl) 1 applic TOP DAILY [facility] Last Admin: 12/29/16 08:45 Dose: 1 applic Diphenhydramine HCl (Benadryl) 25 mg PO Q6 PRN PRN Reason: Itching / Pruritus Last Admin: 12/17/16 09:53 Dose: 25 mg Docusate Sodium (Colace) 100 mg PO BID [facility] Last Admin: 12/29/16 17:25 Dose: 100 mg Epoetin Tha (Procrit) 20,000 unit IV [facility] Last Admin: 12/27/16 11:43 Dose: 20,000 unit Ergocalciferol (Drisdol 50,000 Intl Units Cap) 1 cap PO WED [facility] Last Admin: 12/25/16 10:18 Dose: 1 cap Fluconazole (Diflucan) 100 mg PO DAILY [facility] Last Admin: 12/29/16 11:10 Dose: 100 mg Gabapentin (Neurontin) 300 mg PO TID [facility] Last Admin: 12/29/16 17:25 Dose: 300 mg Guaifenesin/Dextromethorphan (Robitussin Dm) 10 ml PO Q4 PRN PRN Reason: Cough Last Admin: 12/29/16 17:25 Dose: 10 ml Hydrocortisone (Anusol-Hc) 1 applic [place] BID PRN PRN Reason: Inflammation Hydromorphone HCl (Dilaudid) 1 mg IVP Q4H PRN PRN Reason: Pain, severe (8-10) Last Admin: 12/29/16 17:23 Dose: 1 mg Meropenem 500 mg/ Sodium (Chloride) 100 mls @ 100 mls/hr IVPB DAILY@0100 [facility] Last Admin: 12/29/16 00:39 Dose: 100 mls/hr Gentamicin Sulfate/Sodium Chloride (Gentamicin 100mg/100ml Ns) 100 mg in 100 mls @ 100 mls/hr IVPB MWF [facility] Last Admin: 12/27/16 13:00 Dose: 100 mls/hr Tigecycline 25 mg/ Sodium (Chloride) 100 mls @ 100 mls/hr IVPB Q12 [facility] Last Admin: 12/29/16 21:10 Dose: 100 mls/hr Sodium Chloride (Sodium Chloride 0.45%) 500 mls @ 10 mls/hr IV .Q24H [facility] Last Admin: 12/29/16 19:23 Dose: 10 mls/hr Iron Sucrose 100 mg/ Sodium (Chloride) 105 mls @ 105 mls/hr IVPB [facility] Stop: 12/30/16 09:59 Last Admin: 12/27/16 15:09 Dose: 105 mls/hr Daptomycin 650 mg/ Sodium (Chloride) 100 mls @ 100 mls/hr IVPB [facility] Stop: 01/15/17 09:59 Last Admin: 12/27/16 16:30 Dose: 100 mls/hr Levalbuterol HCl (Xopenex) 0.63 mg INH Q6H PRN PRN Reason: Shortness of Breath Nystatin (Nystop Topical Powder) 1 applic TOP BID [facility] Last Admin: 12/29/16 17:26 Dose: 1 applic Ondansetron HCl (Zofran Inj) 4 mg IVP Q6 PRN PRN Reason: Nausea/Vomiting Last Admin: 09/19/16 10:26 Dose: 4 mg Pantoprazole Sodium (Protonix Ec Tab) 40 mg PO DAILY [facility] Last Admin: 12/29/16 08:46 Dose: 40 mg Repaglinide (Prandin) 0.5 mg PO TIDAC [facility] Last Admin: 12/29/16 17:26 Dose: 0.5 mg Sennosides (Senokot Tab) 25.8 mg PO HS [facility] Last Admin: 12/29/16 21:10 Dose: 25.8 mg Sevelamer HCl (Renagel) 1,600 mg PO TID [facility] Last Admin: 12/29/16 17:25 Dose: 1,600 mg Topiramate (Topamax) 50 mg PO BID [facility] Last Admin: 12/29/16 17:25 Dose: 50 mg Vitamin B Complex/Vit C/Folic Acid (Nephro-Ajay) 1 tab PO DAILY [facility] Last Admin: 12/29/16 08:45 Dose: 1 tab - Labs Labs: 12/28/16 08:20 12/28/16 08:20 PT 15.3 Seconds (9.8-13.1) H 12/02/16 13:05 INR 1.4 (0.9-1.2) H 12/02/16 13:05 APTT 37.0 Seconds (25.6-37.1) 12/02/16 13:05 Assessment and Plan (1) Diabetes Status: Chronic (2) ESRD (end stage renal disease) Status: Chronic (3) Cellulitis of leg Status: Chronic (4) Hyperlipidemia Status: Chronic (5) Back pain Status: Acute (6) Bacteremia due to Gram-negative bacteria Status: Acute (7) Diabetes mellitus type 2 with peripheral artery disease Status: Chronic (8) PVD (peripheral vascular disease) Status: Chronic (9) Osteomyelitis of right leg Status: Acute
[2016-12-30] MEDS: Meropenem 500 MG in Sodium Chloride 0.9% 100 ML IVPB SCH (00:25)
[2016-12-30] MEDS: guaiFENesin DM 200 mg-20 mg/10 ml UD PO PRN ×3 (04:04→18:03)
[2016-12-30] MEDS: Gentamicin 100mg/100ml NS 100 MG/100 ML BAG IVPB SCH (09:01)
[2016-12-30] MEDS: Multivitamin Vitamin B Complex (Nephro-Vite) Tab PO SCH (09:03)
[2016-12-30] MEDS: Pantoprazole 40 mg EC Tab PO SCH (09:03)
[2016-12-30] MEDS: Santyl Collagenase OINTMENT TOP SCH (09:04)
[2016-12-30] MEDS: SODIUM CHLORIDE 0.9% IVPB SCH ×2 (09:11→20:58)
[2016-12-30] MEDS: TIGECYCLINE IVPB SCH ×2 (09:11→20:58)
--- NOTE | 2016-12-30 10:21 | CP.PCM.PN ---
Subjective - Date & Time of Evaluation Date of Evaluation: 12/30/16 Time of Evaluation: 10:19 - Subjective Subjective: No new events reported Patient appears to be stable No significant changes clinically Visit get exam Chest no rales Heart no rubs Abdomen soft Extremity no edema above the amputation Impression and plan Hemodialysis scheduled to start shortly order was given Discussed with the dialysis nurse Patient tolerating hemodialysis well Potassium about 2 mEq See the order sheet Objective - Vital Signs/Intake and Output Vital Signs (last 24 hours): Temp Pulse Resp BP Pulse Ox 97.6 F 103 H 20 173/88 H 93 L 12/30/16 08:00 12/30/16 08:00 12/30/16 08:00 12/30/16 08:00 12/30/16 08:00 - Medications Medications: Current Medications Acetaminophen (Tylenol 325mg Tab) 650 mg PO Q4 PRN PRN Reason: Fever >100.4 F Last Admin: 12/26/16 19:40 Dose: 650 mg Acetaminophen (Tylenol 325mg Tab) 650 mg PO Q4 PRN PRN Reason: Pain, moderate (4-7) Last Admin: 12/26/16 05:14 Dose: 650 mg Apixaban (Eliquis) 5 mg PO BID [facility] PRN Reason: Protocol Last Admin: 12/30/16 09:02 Dose: 5 mg Aspirin (Ecotrin) 81 mg PO DAILY [facility] Last Admin: 12/30/16 09:02 Dose: 81 mg Atorvastatin Calcium (Lipitor) 40 mg PO DAILY [facility] Last Admin: 12/30/16 09:02 Dose: 40 mg Benzocaine/Menthol (Cepacol Sore Throat) 1 mindi PO Q2 PRN PRN Reason: Sore Throat Last Admin: 12/29/16 12:09 Dose: 1 mindi Benzonatate (Tessalon Perles) 200 mg PO TID PRN PRN Reason: Cough Last Admin: 12/28/16 16:49 Dose: 200 mg Calcium Carbonate (Oscal) 500 mg PO BIDWM [facility] Last Admin: 12/30/16 09:02 Dose: 500 mg Cinacalcet (Sensipar) 30 mg PO DAILY [facility] Last Admin: 12/30/16 09:02 Dose: 30 mg Collagenase (Santyl) 1 applic TOP DAILY [facility] Last Admin: 12/30/16 09:04 Dose: 1 applic Diphenhydramine HCl (Benadryl) 25 mg PO Q6 PRN PRN Reason: Itching / Pruritus Last Admin: 12/17/16 09:53 Dose: 25 mg Docusate Sodium (Colace) 100 mg PO BID [facility] Last Admin: 12/30/16 09:04 Dose: 100 mg Epoetin Tha (Procrit) 20,000 unit IV [facility] Last Admin: 12/27/16 11:43 Dose: 20,000 unit Ergocalciferol (Drisdol 50,000 Intl Units Cap) 1 cap PO WED [facility] Last Admin: 12/25/16 10:18 Dose: 1 cap Fluconazole (Diflucan) 100 mg PO DAILY [facility] Last Admin: 12/30/16 09:04 Dose: 100 mg Gabapentin (Neurontin) 300 mg PO TID [facility] Last Admin: 12/30/16 09:03 Dose: 300 mg Guaifenesin/Dextromethorphan (Robitussin Dm) 10 ml PO Q4 PRN PRN Reason: Cough Last Admin: 12/30/16 09:14 Dose: 10 ml Hydrocortisone (Anusol-Hc) 1 applic [place] BID PRN PRN Reason: Inflammation Hydromorphone HCl (Dilaudid) 1 mg IVP Q4H PRN PRN Reason: Pain, severe (8-10) Last Admin: 12/30/16 03:58 Dose: 1 mg Meropenem 500 mg/ Sodium (Chloride) 100 mls @ 100 mls/hr IVPB DAILY@0100 [facility] Last Admin: 12/30/16 00:25 Dose: 100 mls/hr Gentamicin Sulfate/Sodium Chloride (Gentamicin 100mg/100ml Ns) 100 mg in 100 mls @ 100 mls/hr IVPB [facility] Last Admin: 12/30/16 09:01 Dose: 100 mls/hr Tigecycline 25 mg/ Sodium (Chloride) 100 mls @ 100 mls/hr IVPB Q12 [facility] Last Admin: 12/30/16 09:11 Dose: 100 mls/hr Sodium Chloride (Sodium Chloride 0.45%) 500 mls @ 10 mls/hr IV .Q24H [facility] Last Admin: 12/29/16 19:23 Dose: 10 mls/hr Daptomycin 650 mg/ Sodium (Chloride) 100 mls @ 100 mls/hr IVPB [facility] Stop: 01/15/17 09:59 Last Admin: 12/27/16 16:30 Dose: 100 mls/hr Levalbuterol HCl (Xopenex) 0.63 mg INH Q6H PRN PRN Reason: Shortness of Breath Nystatin (Nystop Topical Powder) 1 applic TOP BID [facility] Last Admin: 12/30/16 09:03 Dose: 1 applic Ondansetron HCl (Zofran Inj) 4 mg IVP Q6 PRN PRN Reason: Nausea/Vomiting Last Admin: 09/19/16 10:26 Dose: 4 mg Pantoprazole Sodium (Protonix Ec Tab) 40 mg PO DAILY [facility] Last Admin: 12/30/16 09:03 Dose: 40 mg Repaglinide (Prandin) 0.5 mg PO TIDAC [facility] Last Admin: 12/30/16 09:02 Dose: 0.5 mg Sennosides (Senokot Tab) 25.8 mg PO HS [facility] Last Admin: 12/29/16 21:10 Dose: 25.8 mg Sevelamer HCl (Renagel) 1,600 mg PO TID [facility] Last Admin: 12/30/16 09:03 Dose: 1,600 mg Topiramate (Topamax) 50 mg PO BID [facility] Last Admin: 12/30/16 09:04 Dose: 50 mg Vitamin B Complex/Vit C/Folic Acid (Nephro-Ajay) 1 tab PO DAILY [facility] Last Admin: 12/30/16 09:03 Dose: 1 tab - Labs Labs: 12/28/16 08:20 12/28/16 08:20 PT 15.3 Seconds (9.8-13.1) H 12/02/16 13:05 INR 1.4 (0.9-1.2) H 12/02/16 13:05 APTT 37.0 Seconds (25.6-37.1) 12/02/16 13:05 Assessment and Plan (1) ESRD (end stage renal disease) Status: Chronic (2) Cellulitis of leg Status: Chronic
--- NOTE | 2016-12-30 10:43 | CP.PCM.PN ---
Subjective - Date & Time of Evaluation Date of Evaluation: 12/30/16 Time of Evaluation: 10:34 - Subjective Subjective: Patient is comfortable - awaiting wound vac change by Dr. Doran and hemodialysis today. Wound is still culture positive for multidrug resistant Klebsiella (although patient is on two IV drugs that should work, namely gentamicin and tigacycline, and two others). The gram stain shows no organisms, and blood drawn from both iv lines (permacath and PICC) were culture negative. She has had no fevers and the right BK residual limb is non-tender. Dr. Maguire has suggested IV immunoglobulin. I am not familiar with use of Ig to treat infections like this one.. I have asked for input from Xochilt Youssef, and Alta Guadarrama. Cough persists - was helped by Malorie-JOHNSON. However, I am inclined to agree with the patient that the cough could be related to fluid overload. Lungs sound clear... Will see what Drs. Flores and Alta Guadarrama can add? Will get glucose reading at time of dialysis today. No signs or symptoms of hypo- or hyperglycemia. Eliquis renewed today. Objective - Vital Signs/Intake and Output Vital Signs (last 24 hours): Temp Pulse Resp BP Pulse Ox 97.6 F 103 H 20 173/88 H 93 L 12/30/16 08:00 12/30/16 08:00 12/30/16 08:00 12/30/16 08:00 12/30/16 08:00 - Medications Medications: Current Medications Acetaminophen (Tylenol 325mg Tab) 650 mg PO Q4 PRN PRN Reason: Fever >100.4 F Last Admin: 12/26/16 19:40 Dose: 650 mg Acetaminophen (Tylenol 325mg Tab) 650 mg PO Q4 PRN PRN Reason: Pain, moderate (4-7) Last Admin: 12/26/16 05:14 Dose: 650 mg Apixaban (Eliquis) 5 mg PO BID [facility] PRN Reason: Protocol Last Admin: 12/30/16 09:02 Dose: 5 mg Aspirin (Ecotrin) 81 mg PO DAILY [facility] Last Admin: 12/30/16 09:02 Dose: 81 mg Atorvastatin Calcium (Lipitor) 40 mg PO DAILY [facility] Last Admin: 12/30/16 09:02 Dose: 40 mg Benzocaine/Menthol (Cepacol Sore Throat) 1 mindi PO Q2 PRN PRN Reason: Sore Throat Last Admin: 12/29/16 12:09 Dose: 1 mindi Benzonatate (Tessalon Perles) 200 mg PO TID PRN PRN Reason: Cough Last Admin: 12/28/16 16:49 Dose: 200 mg Calcium Carbonate (Oscal) 500 mg PO BIDWM [facility] Last Admin: 12/30/16 09:02 Dose: 500 mg Cinacalcet (Sensipar) 30 mg PO DAILY [facility] Last Admin: 12/30/16 09:02 Dose: 30 mg Collagenase (Santyl) 1 applic TOP DAILY [facility] Last Admin: 12/30/16 09:04 Dose: 1 applic Diphenhydramine HCl (Benadryl) 25 mg PO Q6 PRN PRN Reason: Itching / Pruritus Last Admin: 12/17/16 09:53 Dose: 25 mg Docusate Sodium (Colace) 100 mg PO BID [facility] Last Admin: 12/30/16 09:04 Dose: 100 mg Epoetin Tha (Procrit) 20,000 unit IV MWF [facility] Last Admin: 12/27/16 11:43 Dose: 20,000 unit Ergocalciferol (Drisdol 50,000 Intl Units Cap) 1 cap PO WED [facility] Last Admin: 12/25/16 10:18 Dose: 1 cap Fluconazole (Diflucan) 100 mg PO DAILY [facility] Last Admin: 12/30/16 09:04 Dose: 100 mg Gabapentin (Neurontin) 300 mg PO TID [facility] Last Admin: 12/30/16 09:03 Dose: 300 mg Guaifenesin/Dextromethorphan (Robitussin Dm) 10 ml PO Q4 PRN PRN Reason: Cough Last Admin: 12/30/16 09:14 Dose: 10 ml Hydrocortisone (Anusol-Hc) 1 applic [place] BID PRN PRN Reason: Inflammation Hydromorphone HCl (Dilaudid) 1 mg IVP Q4H PRN PRN Reason: Pain, severe (8-10) Last Admin: 12/30/16 03:58 Dose: 1 mg Meropenem 500 mg/ Sodium (Chloride) 100 mls @ 100 mls/hr IVPB DAILY@0100 [facility] Last Admin: 12/30/16 00:25 Dose: 100 mls/hr Gentamicin Sulfate/Sodium Chloride (Gentamicin 100mg/100ml Ns) 100 mg in 100 mls @ 100 mls/hr IVPB [facility] Last Admin: 12/30/16 09:01 Dose: 100 mls/hr Tigecycline 25 mg/ Sodium (Chloride) 100 mls @ 100 mls/hr IVPB Q12 [facility] Last Admin: 12/30/16 09:11 Dose: 100 mls/hr Sodium Chloride (Sodium Chloride 0.45%) 500 mls @ 10 mls/hr IV .Q24H [facility] Last Admin: 12/29/16 19:23 Dose: 10 mls/hr Daptomycin 650 mg/ Sodium (Chloride) 100 mls @ 100 mls/hr IVPB [facility] Stop: 01/15/17 09:59 Last Admin: 12/27/16 16:30 Dose: 100 mls/hr Levalbuterol HCl (Xopenex) 0.63 mg INH Q6H PRN PRN Reason: Shortness of Breath Nystatin (Nystop Topical Powder) 1 applic TOP BID [facility] Last Admin: 12/30/16 09:03 Dose: 1 applic Ondansetron HCl (Zofran Inj) 4 mg IVP Q6 PRN PRN Reason: Nausea/Vomiting Last Admin: 09/19/16 10:26 Dose: 4 mg Pantoprazole Sodium (Protonix Ec Tab) 40 mg PO DAILY [facility] Last Admin: 12/30/16 09:03 Dose: 40 mg Repaglinide (Prandin) 0.5 mg PO TIDAC [facility] Last Admin: 12/30/16 09:02 Dose: 0.5 mg Sennosides (Senokot Tab) 25.8 mg PO HS [facility] Last Admin: 12/29/16 21:10 Dose: 25.8 mg Sevelamer HCl (Renagel) 1,600 mg PO TID [facility] Last Admin: 12/30/16 09:03 Dose: 1,600 mg Topiramate (Topamax) 50 mg PO BID [facility] Last Admin: 12/30/16 09:04 Dose: 50 mg Vitamin B Complex/Vit C/Folic Acid (Nephro-Ajay) 1 tab PO DAILY [facility] Last Admin: 12/30/16 09:03 Dose: 1 tab - Labs Labs: 12/28/16 08:20 12/28/16 08:20 PT 15.3 Seconds (9.8-13.1) H 12/02/16 13:05 INR 1.4 (0.9-1.2) H 12/02/16 13:05 APTT 37.0 Seconds (25.6-37.1) 12/02/16 13:05 - Constitutional Appears: No Acute Distress - Head Exam Head Exam: NORMAL INSPECTION - Eye Exam Eye Exam: Normal appearance - ENT Exam ENT Exam: Mucous Membranes Moist - Neck Exam Neck Exam: Normal Inspection Additional comments: Right subclavian Permacath intact. - Respiratory Exam Respiratory Exam: Clear to Ausculation Bilateral, NORMAL BREATHING PATTERN - Cardiovascular Exam Cardiovascular Exam: REGULAR RHYTHM, +S1, +S2 - GI/Abdominal Exam GI & Abdominal Exam: Soft - Extremities Exam Additional comments: Right BK wound vac in place with no leaks and minimal drainage. R patellar dressing intact. Hands and L residual limb clear as before. Left femoral vein PICC line intact. - Back Exam Back Exam: NORMAL INSPECTION - Neurological Exam Neurological Exam: Alert, CN II-XII Intact, Oriented x3 - Psychiatric Exam Psychiatric exam: Normal Affect, Normal Mood - Skin Skin Exam: Dry, Normal Color, Warm Assessment and Plan (1) Status post below knee amputation of right lower extremity Assessment & Plan: SEE SUBJECTIVE Status: Acute (2) ESRD (end stage renal disease) on dialysis Assessment & Plan: SEE SUBJECTIVE - Dr. Guadarrama will order for more fluid to be removed durin HD today. Status: Chronic (3) DM type 2 (diabetes mellitus, type 2) Assessment & Plan: SEE SUBJECTIVE Status: Chronic (4) Coagulopathy Status: Chronic (5) Peripheral arterial occlusive disease Status: Chronic
--- NOTE | 2016-12-30 11:25 | CP.PCM.PN ---
Subjective - Date & Time of Evaluation Date of Evaluation: 12/30/16 Time of Evaluation: 11:18 - Subjective Subjective: Appears comfortable, but continues to have some congested cough. Her vital signs have been stable and she is unable to expectorate any phlegm. Her last CXR was about 4 days ago and did show a mild congested vascular pattern , but no infiltrates or effusions. There are a few dry to medium rales on auscultation in the lower lobes, but no wheezing or bronchial breathing. The pharynx is pink and moist w/o exudates, and the nares are patent bilaterally. I will d/c the benzonatate (which she says doesn't do much for the cough) and leave the PRN guaifenesin DM liquid. If taking off more fluid with dialysis results in the cough stopping, then nothing more needs to be done. If she continues to cough, then I would first go to max strength Mucinex ( watching the LFT's), or codeine if needed. I'll change her levalbuterol to scheduled treatments every eight hours also. Objective - Vital Signs/Intake and Output Vital Signs (last 24 hours): Temp Pulse Resp BP Pulse Ox 97.6 F 103 H 20 173/88 H 93 L 12/30/16 08:00 12/30/16 08:00 12/30/16 08:00 12/30/16 08:00 12/30/16 08:00 - Medications Medications: Current Medications Acetaminophen (Tylenol 325mg Tab) 650 mg PO Q4 PRN PRN Reason: Fever >100.4 F Last Admin: 12/26/16 19:40 Dose: 650 mg Acetaminophen (Tylenol 325mg Tab) 650 mg PO Q4 PRN PRN Reason: Pain, moderate (4-7) Last Admin: 12/26/16 05:14 Dose: 650 mg Apixaban (Eliquis) 5 mg PO BID [facility] PRN Reason: Protocol Last Admin: 12/30/16 09:02 Dose: 5 mg Aspirin (Ecotrin) 81 mg PO DAILY [facility] Last Admin: 12/30/16 09:02 Dose: 81 mg Atorvastatin Calcium (Lipitor) 40 mg PO DAILY [facility] Last Admin: 12/30/16 09:02 Dose: 40 mg Benzocaine/Menthol (Cepacol Sore Throat) 1 mindi PO Q2 PRN PRN Reason: Sore Throat Last Admin: 12/29/16 12:09 Dose: 1 mindi Benzonatate (Tessalon Perles) 200 mg PO TID PRN PRN Reason: Cough Last Admin: 12/28/16 16:49 Dose: 200 mg Calcium Carbonate (Oscal) 500 mg PO BIDWM [facility] Last Admin: 12/30/16 09:02 Dose: 500 mg Cinacalcet (Sensipar) 30 mg PO DAILY [facility] Last Admin: 12/30/16 09:02 Dose: 30 mg Collagenase (Santyl) 1 applic TOP DAILY [facility] Last Admin: 12/30/16 09:04 Dose: 1 applic Diphenhydramine HCl (Benadryl) 25 mg PO Q6 PRN PRN Reason: Itching / Pruritus Last Admin: 12/17/16 09:53 Dose: 25 mg Docusate Sodium (Colace) 100 mg PO BID [facility] Last Admin: 12/30/16 09:04 Dose: 100 mg Epoetin Tha (Procrit) 20,000 unit IV MWF [facility] Last Admin: 12/27/16 11:43 Dose: 20,000 unit Ergocalciferol (Drisdol 50,000 Intl Units Cap) 1 cap PO WED [facility] Last Admin: 12/25/16 10:18 Dose: 1 cap Fluconazole (Diflucan) 100 mg PO DAILY [facility] Last Admin: 12/30/16 09:04 Dose: 100 mg Gabapentin (Neurontin) 300 mg PO TID [facility] Last Admin: 12/30/16 09:03 Dose: 300 mg Guaifenesin/Dextromethorphan (Robitussin Dm) 10 ml PO Q4 PRN PRN Reason: Cough Last Admin: 12/30/16 09:14 Dose: 10 ml Hydrocortisone (Anusol-Hc) 1 applic [place] BID PRN PRN Reason: Inflammation Hydromorphone HCl (Dilaudid) 1 mg IVP Q4H PRN PRN Reason: Pain, severe (8-10) Last Admin: 12/30/16 11:01 Dose: 1 mg Meropenem 500 mg/ Sodium (Chloride) 100 mls @ 100 mls/hr IVPB DAILY@0100 [facility] Last Admin: 12/30/16 00:25 Dose: 100 mls/hr Gentamicin Sulfate/Sodium Chloride (Gentamicin 100mg/100ml Ns) 100 mg in 100 mls @ 100 mls/hr IVPB MWF [facility] Last Admin: 12/30/16 09:01 Dose: 100 mls/hr Tigecycline 25 mg/ Sodium (Chloride) 100 mls @ 100 mls/hr IVPB Q12 [facility] Last Admin: 12/30/16 09:11 Dose: 100 mls/hr Sodium Chloride (Sodium Chloride 0.45%) 500 mls @ 10 mls/hr IV .Q24H [facility] Last Admin: 12/29/16 19:23 Dose: 10 mls/hr Daptomycin 650 mg/ Sodium (Chloride) 100 mls @ 100 mls/hr IVPB [facility] [place] Stop: 01/15/17 09:59 Last Admin: 12/27/16 16:30 Dose: 100 mls/hr Levalbuterol HCl (Xopenex) 0.63 mg INH Q6H PRN PRN Reason: Shortness of Breath Nystatin (Nystop Topical Powder) 1 applic TOP BID [facility] Last Admin: 12/30/16 09:03 Dose: 1 applic Ondansetron HCl (Zofran Inj) 4 mg IVP Q6 PRN PRN Reason: Nausea/Vomiting Last Admin: 09/19/16 10:26 Dose: 4 mg Pantoprazole Sodium (Protonix Ec Tab) 40 mg PO DAILY [facility] Last Admin: 12/30/16 09:03 Dose: 40 mg Repaglinide (Prandin) 0.5 mg PO TIDAC [facility] Last Admin: 12/30/16 09:02 Dose: 0.5 mg Sennosides (Senokot Tab) 25.8 mg PO HS [facility] Last Admin: 12/29/16 21:10 Dose: 25.8 mg Sevelamer HCl (Renagel) 1,600 mg PO TID [facility] Last Admin: 12/30/16 09:03 Dose: 1,600 mg Topiramate (Topamax) 50 mg PO BID [facility] Last Admin: 12/30/16 09:04 Dose: 50 mg Vitamin B Complex/Vit C/Folic Acid (Nephro-Ajay) 1 tab PO DAILY [facility] Last Admin: 12/30/16 09:03 Dose: 1 tab - Labs Labs: 12/28/16 08:20 12/28/16 08:20 PT 15.3 Seconds (9.8-13.1) H 12/02/16 13:05 INR 1.4 (0.9-1.2) H 12/02/16 13:05 APTT 37.0 Seconds (25.6-37.1) 12/02/16 13:05
[2016-12-30] MEDS: Epoetin Alfa 20000 UNIT/ML Inj IV SCH ×3 (12:58→13:07)
[2016-12-30] MEDS: Levalbuterol 0.63 MG/3 ML Inhal Soln UD INH SCH ×2 (15:31→23:21)
--- NOTE | 2016-12-30 16:13 | CP.PCM.PN ---
Subjective - Date & Time of Evaluation Date of Evaluation: 12/30/16 Time of Evaluation: 16:11 - Subjective Subjective: Surgery Pt s&e. Wound vac changed on bedside. Pt tolerated it well. Pt getting HD. Objective - Vital Signs/Intake and Output Vital Signs (last 24 hours): Temp Pulse Resp BP Pulse Ox 97.6 F 103 H 20 173/88 H 93 L 12/30/16 08:00 12/30/16 08:00 12/30/16 08:00 12/30/16 08:00 12/30/16 08:00 - Medications Medications: Current Medications Acetaminophen (Tylenol 325mg Tab) 650 mg PO Q4 PRN PRN Reason: Fever >100.4 F Last Admin: 12/26/16 19:40 Dose: 650 mg Acetaminophen (Tylenol 325mg Tab) 650 mg PO Q4 PRN PRN Reason: Pain, moderate (4-7) Last Admin: 12/26/16 05:14 Dose: 650 mg Apixaban (Eliquis) 5 mg PO BID [facility] PRN Reason: Protocol Last Admin: 12/30/16 09:02 Dose: 5 mg Aspirin (Ecotrin) 81 mg PO DAILY [facility] Last Admin: 12/30/16 09:02 Dose: 81 mg Atorvastatin Calcium (Lipitor) 40 mg PO DAILY [facility] Last Admin: 12/30/16 09:02 Dose: 40 mg Benzonatate (Tessalon Perles) 200 mg PO TID PRN PRN Reason: Cough Last Admin: 12/28/16 16:49 Dose: 200 mg Calcium Carbonate (Oscal) 500 mg PO BIDWM [facility] Last Admin: 12/30/16 09:02 Dose: 500 mg Cinacalcet (Sensipar) 30 mg PO DAILY [facility] Last Admin: 12/30/16 09:02 Dose: 30 mg Collagenase (Santyl) 1 applic TOP DAILY [facility] Last Admin: 12/30/16 09:04 Dose: 1 applic Diphenhydramine HCl (Benadryl) 25 mg PO Q6 PRN PRN Reason: Itching / Pruritus Last Admin: 12/17/16 09:53 Dose: 25 mg Docusate Sodium (Colace) 100 mg PO BID [facility] Last Admin: 12/30/16 09:04 Dose: 100 mg Epoetin Tha (Procrit) 20,000 unit IV MWF [facility] Last Admin: 12/30/16 13:07 Dose: 20,000 unit Ergocalciferol (Drisdol 50,000 Intl Units Cap) 1 cap PO WED [facility] Last Admin: 12/25/16 10:18 Dose: 1 cap Fluconazole (Diflucan) 100 mg PO DAILY [facility] Last Admin: 12/30/16 09:04 Dose: 100 mg Gabapentin (Neurontin) 300 mg PO TID [facility] Last Admin: 12/30/16 13:00 Dose: 300 mg Guaifenesin/Dextromethorphan (Robitussin Dm) 10 ml PO Q4 PRN PRN Reason: Cough Last Admin: 12/30/16 09:14 Dose: 10 ml Hydrocortisone (Anusol-Hc) [address] BID PRN PRN Reason: Inflammation Hydromorphone HCl (Dilaudid) 1 mg IVP Q4H PRN PRN Reason: Pain, severe (8-10) Last Admin: 12/30/16 11:01 Dose: 1 mg Meropenem 500 mg/ Sodium (Chloride) 100 mls @ 100 mls/hr IVPB DAILY@0100 [facility] Last Admin: 12/30/16 00:25 Dose: 100 mls/hr Gentamicin Sulfate/Sodium Chloride (Gentamicin 100mg/100ml Ns) 100 mg in 100 mls @ 100 mls/hr [place]PB [facility] Last Admin: 12/30/16 09:01 Dose: 100 mls/hr Tigecycline 25 mg/ Sodium (Chloride) 100 mls @ 100 mls/hr IVPB Q12 [facility] Last Admin: 12/30/16 09:11 Dose: 100 mls/hr Sodium Chloride (Sodium Chloride 0.45%) 500 mls @ 10 mls/hr IV .Q24H [facility] Last Admin: 12/29/16 19:23 Dose: 10 mls/hr Daptomycin 650 mg/ Sodium (Chloride) 100 mls @ 100 mls/hr IVPB [facility] Stop: 01/15/17 09:59 Last Admin: 12/27/16 16:30 Dose: 100 mls/hr Levalbuterol HCl (Xopenex) 0.63 mg INH RQ8 [facility] Last Admin: 12/30/16 15:31 Dose: 0.63 mg Nystatin (Nystop Topical Powder) 1 applic TOP BID [facility] Last Admin: 12/30/16 09:03 Dose: 1 applic Ondansetron HCl (Zofran Inj) 4 mg IVP Q6 PRN PRN Reason: Nausea/Vomiting Last Admin: 09/19/16 10:26 Dose: 4 mg Pantoprazole Sodium (Protonix Ec Tab) 40 mg PO DAILY [facility] Last Admin: 12/30/16 09:03 Dose: 40 mg Repaglinide (Prandin) 0.5 mg PO TIDAC [facility] Last Admin: 12/30/16 13:00 Dose: 0.5 mg Sennosides (Senokot Tab) 25.8 mg PO HS [facility] Last Admin: 12/29/16 21:10 Dose: 25.8 mg Sevelamer HCl (Renagel) 1,600 mg PO TID [facility] Last Admin: 12/30/16 13:00 Dose: 1,600 mg Topiramate (Topamax) 50 mg PO BID [facility] Last Admin: 12/30/16 09:04 Dose: 50 mg Vitamin B Complex/Vit C/Folic Acid (Nephro-Ajay) 1 tab PO DAILY [facility] Last Admin: 12/30/16 09:03 Dose: 1 tab - Labs Labs: 12/28/16 08:20 12/28/16 08:20 PT 15.3 Seconds (9.8-13.1) H 12/02/16 13:05 INR 1.4 (0.9-1.2) H 12/02/16 13:05 APTT 37.0 Seconds (25.6-37.1) 12/02/16 13:05 - Constitutional Appears: No Acute Distress - Head Exam Head Exam: ATRAUMATIC, NORMAL INSPECTION, NORMOCEPHALIC - Eye Exam Eye Exam: EOMI, Normal appearance, PERRL Pupil Exam: NORMAL ACCOMODATION, PERRL - ENT Exam ENT Exam: Mucous Membranes Moist, Normal Exam - Neck Exam Neck Exam: Full ROM, Normal Inspection. absent: Lymphadenopathy - Respiratory Exam Respiratory Exam: Clear to Ausculation Bilateral, NORMAL BREATHING PATTERN - Cardiovascular Exam Cardiovascular Exam: REGULAR RHYTHM, +S1, +S2. absent: Murmur - GI/Abdominal Exam GI & Abdominal Exam: Soft, Normal Bowel Sounds. absent: Distended, Tenderness - Extremities Exam Extremities Exam: Tenderness Additional comments: b/l BKA. R stump granulation tissue. No leak on vac - Back Exam Back Exam: NORMAL INSPECTION - Neurological Exam Neurological Exam: Alert, Awake, CN II-XII Intact, Oriented x3 - Psychiatric Exam Psychiatric exam: Normal Affect, Normal Mood - Skin Skin Exam: Dry, Warm Assessment and Plan - Assessment and Plan (Free Text) Assessment: B/L BKA with R stump wound vac Wound vac changed today. Continue current wound care. Change VAC at bedside in 3-4 days. Continue Santyl to right knee patellar wound.
--- NOTE | 2016-12-30 18:47 | CP.PCM.PN ---
Subjective - Date & Time of Evaluation Date of Evaluation: 12/30/16 Time of Evaluation: 18:42 - Subjective Subjective: I D NOTE DISCUSSED c AND HYUN MICROBIOLOGY IS CHECKING FURTHER SENSITIVITIES HAVE D/SERA MEROPENEM SHE HAS BEEN FOR EXTENED PERIOD WILL RX EITHER C CEFTAZADIME OR AVYCAZ Objective - Vital Signs/Intake and Output Vital Signs (last 24 hours): Temp Pulse Resp BP Pulse Ox 98.3 F 105 H 20 193/60 H 100 12/30/16 16:19 12/30/16 16:19 12/30/16 16:19 12/30/16 16:19 12/30/16 16:19 - Medications Medications: Current Medications Acetaminophen (Tylenol 325mg Tab) 650 mg PO Q4 PRN PRN Reason: Fever >100.4 F Last Admin: 12/26/16 19:40 Dose: 650 mg Acetaminophen (Tylenol 325mg Tab) 650 mg PO Q4 PRN PRN Reason: Pain, moderate (4-7) Last Admin: 12/26/16 05:14 Dose: 650 mg Apixaban (Eliquis) 5 mg PO BID [facility] PRN Reason: Protocol Last Admin: 12/30/16 17:58 Dose: 5 mg Aspirin (Ecotrin) 81 mg PO DAILY [facility] Last Admin: 12/30/16 09:02 Dose: 81 mg Atorvastatin Calcium (Lipitor) 40 mg PO DAILY [facility] Last Admin: 12/30/16 09:02 Dose: 40 mg Benzonatate (Tessalon Perles) 200 mg PO TID PRN PRN Reason: Cough Last Admin: 12/28/16 16:49 Dose: 200 mg Calcium Carbonate (Oscal) 500 mg PO BIDWM [facility] Last Admin: 12/30/16 17:58 Dose: 500 mg Cinacalcet (Sensipar) 30 mg PO DAILY [facility] Last Admin: 12/30/16 09:02 Dose: 30 mg Collagenase (Santyl) 1 applic TOP DAILY [facility] Last Admin: 12/30/16 09:04 Dose: 1 applic Diphenhydramine HCl (Benadryl) 25 mg PO Q6 PRN PRN Reason: Itching / Pruritus Last Admin: 12/17/16 09:53 Dose: 25 mg Docusate Sodium (Colace) 100 mg PO BID [facility] Last Admin: 08/21/17 17:59 Dose: 100 mg Epoetin Tha (Procrit) 20,000 unit IV [facility] Last Admin: 12/30/16 13:07 Dose: 20,000 unit Ergocalciferol (Drisdol 50,000 Intl Units Cap) 1 cap PO WED [facility] Last Admin: 12/25/16 10:18 Dose: 1 cap Fluconazole (Diflucan) 100 mg PO DAILY [facility] Last Admin: 12/30/16 09:04 Dose: 100 mg Gabapentin (Neurontin) 300 mg PO TID [facility] Last Admin: 12/30/16 18:00 Dose: 300 mg Guaifenesin/Dextromethorphan (Robitussin Dm) 10 ml PO Q4 PRN PRN Reason: Cough Last Admin: 12/30/16 18:03 Dose: 10 ml Hydrocortisone (Anusol-Hc) 1 applic [place] BID PRN PRN Reason: Inflammation Hydromorphone HCl (Dilaudid) 1 mg IVP Q4H PRN PRN Reason: Pain, severe (8-10) Last Admin: 12/30/16 11:01 Dose: 1 mg Meropenem 500 mg/ Sodium (Chloride) 100 mls @ 100 mls/hr IVPB DAILY@0100 [facility] Last Admin: 12/30/16 00:25 Dose: 100 mls/hr Gentamicin Sulfate/Sodium Chloride (Gentamicin 100mg/100ml Ns) 100 mg in 100 mls @ 100 mls/hr IVPB [facility] [place] [facility] Last Admin: 12/30/16 09:01 Dose: 100 mls/hr Tigecycline 25 mg/ Sodium (Chloride) 100 mls @ 100 mls/hr IVPB Q12 [facility] Last Admin: 12/30/16 09:11 Dose: 100 mls/hr Sodium Chloride (Sodium Chloride 0.45%) 500 mls @ 10 mls/hr IV .Q24H [facility] Last Admin: 12/30/16 18:00 Dose: 10 mls/hr Daptomycin 650 mg/ Sodium (Chloride) 100 mls @ 100 mls/hr IVPB [facility] Stop: 01/15/17 09:59 Last Admin: 12/30/16 17:58 Dose: 100 mls/hr Gentamicin Sulfate 120 mg/ (Sterile Water) 8 mls @ 5 mls/hr IVPB [facility] Levalbuterol HCl (Xopenex) 0.63 mg INH RQ8 [facility] Last Admin: 12/30/16 15:31 Dose: 0.63 mg Nystatin (Nystop Topical Powder) 1 applic TOP BID [facility] Last Admin: 12/30/16 18:00 Dose: Not Given Ondansetron HCl (Zofran Inj) 4 mg IVP Q6 PRN PRN Reason: Nausea/Vomiting Last Admin: 09/19/16 10:26 Dose: 4 mg Pantoprazole Sodium (Protonix Ec Tab) 40 mg PO DAILY [facility] Last Admin: 12/30/16 09:03 Dose: 40 mg Repaglinide (Prandin) 0.5 mg PO TIDAC [facility] Last Admin: 12/30/16 18:00 Dose: 0.5 mg Sennosides (Senokot Tab) 25.8 mg PO HS [facility] Last Admin: 12/29/16 21:10 Dose: 25.8 mg Sevelamer HCl (Renagel) 1,600 mg PO TIDWM [facility] Last Admin: 12/30/16 18:00 Dose: 1,600 mg Topiramate (Topamax) 50 mg PO BID [facility] Last Admin: 12/30/16 17:58 Dose: 50 mg Vitamin B Complex/Vit C/Folic Acid (Nephro-Ajay) 1 tab PO DAILY [facility] Last Admin: 12/30/16 09:03 Dose: 1 tab - Labs Labs: 12/28/16 08:20 12/28/16 08:20 PT 15.3 Seconds (9.8-13.1) H 12/02/16 13:05 INR 1.4 (0.9-1.2) H 12/02/16 13:05 APTT 37.0 Seconds (25.6-37.1) 12/02/16 13:05
--- NOTE | 2016-12-30 22:40 | CP.PCM.PN ---
Subjective - Date & Time of Evaluation Date of Evaluation: 12/30/16 Time of Evaluation: 20:00 - Subjective Subjective: Patient is not in distress. She is reported to eat with a good appetite. Positive Cultures for Klebsiella. No reported seizures. She is receiving her Hemodialysis on ,,. Blood Glucose is controlled. She is having a high Systolic Blood Pressure. Objective - Vital Signs/Intake and Output Vital Signs (last 24 hours): Temp Pulse Resp BP Pulse Ox 98.3 F 105 H 20 193/60 H 100 12/30/16 16:19 12/30/16 16:19 12/30/16 16:19 12/30/16 16:19 12/30/16 16:19 - Medications Medications: Current Medications Acetaminophen (Tylenol 325mg Tab) 650 mg PO Q4 PRN PRN Reason: Fever >100.4 F Last Admin: 12/26/16 19:40 Dose: 650 mg Acetaminophen (Tylenol 325mg Tab) 650 mg PO Q4 PRN PRN Reason: Pain, moderate (4-7) Last Admin: 12/26/16 05:14 Dose: 650 mg Apixaban (Eliquis) 5 mg PO BID [facility] PRN Reason: Protocol Last Admin: 12/30/16 17:58 Dose: 5 mg Aspirin (Ecotrin) 81 mg PO DAILY [facility] Last Admin: 12/30/16 09:02 Dose: 81 mg Atorvastatin Calcium (Lipitor) 40 mg PO DAILY [facility] Last Admin: 12/30/16 09:02 Dose: 40 mg Benzonatate (Tessalon Perles) 200 mg PO TID PRN PRN Reason: Cough Last Admin: 12/28/16 16:49 Dose: 200 mg Calcium Carbonate (Oscal) 500 mg PO BIDWM [facility] Last Admin: 12/30/16 17:58 Dose: 500 mg Cinacalcet (Sensipar) 30 mg PO DAILY [facility] Last Admin: 12/30/16 09:02 Dose: 30 mg Collagenase (Santyl) 1 applic TOP DAILY [facility] Last Admin: 12/30/16 09:04 Dose: 1 applic Diphenhydramine HCl (Benadryl) 25 mg PO Q6 PRN PRN Reason: Itching / Pruritus Last Admin: 12/17/16 09:53 Dose: 25 mg Docusate Sodium (Colace) 100 mg PO BID [facility] Last Admin: 12/30/16 17:59 Dose: 100 mg Epoetin Tha (Procrit) 20,000 unit IV [facility] Last Admin: 12/30/16 13:07 Dose: 20,000 unit Ergocalciferol (Drisdol 50,000 Intl Units Cap) 1 cap PO WED [facility] Last Admin: 12/25/16 10:18 Dose: 1 cap Fluconazole (Diflucan) 100 mg PO DAILY [facility] Last Admin: 12/30/16 09:04 Dose: 100 mg Gabapentin (Neurontin) 300 mg PO TID [facility] Last Admin: 12/30/16 18:00 Dose: 300 mg Guaifenesin/Dextromethorphan (Robitussin Dm) 10 ml PO Q4 PRN PRN Reason: Cough Last Admin: 12/30/16 18:03 Dose: 10 ml Hydrocortisone (Anusol-Hc) 1 applic [place] BID PRN PRN Reason: Inflammation Hydromorphone HCl (Dilaudid) 1 mg IVP Q4H PRN PRN Reason: Pain, severe (8-10) Last Admin: 12/30/16 20:56 Dose: 1 mg Meropenem 500 mg/ Sodium (Chloride) 100 mls @ 100 mls/hr IVPB DAILY@0100 [facility] Last Admin: 12/30/16 00:25 Dose: 100 mls/hr Gentamicin Sulfate/Sodium Chloride (Gentamicin 100mg/100ml Ns) 100 mg in 100 mls @ 100 mls/hr IVPB [facility] Last Admin: 12/30/16 09:01 Dose: 100 mls/hr Tigecycline 25 mg/ Sodium (Chloride) 100 mls @ 100 mls/hr IVPB Q12 [facility] Last Admin: 12/30/16 20:58 Dose: 100 mls/hr Sodium Chloride (Sodium Chloride 0.45%) 500 mls @ 10 mls/hr IV .Q24H [facility] Last Admin: 12/30/16 18:00 Dose: 10 mls/hr Daptomycin 650 mg/ Sodium (Chloride) 100 mls @ 100 mls/hr IVPB [facility] Stop: 01/15/17 09:59 Last Admin: 12/30/16 17:58 Dose: 100 mls/hr Gentamicin Sulfate 120 mg/ (Sodium Chloride) 253 mls @ 168.667 mls/hr IVPB [facility] Levalbuterol HCl (Xopenex) 0.63 mg INH RQ8 [facility] Last Admin: 12/30/16 15:31 Dose: 0.63 mg Nystatin (Nystop Topical Powder) 1 applic TOP BID [facility] Last Admin: 12/30/16 18:00 Dose: Not Given Ondansetron HCl (Zofran Inj) 4 mg IVP Q6 PRN PRN Reason: Nausea/Vomiting Last Admin: 09/19/16 10:26 Dose: 4 mg Pantoprazole Sodium (Protonix Ec Tab) 40 mg PO DAILY [facility] Last Admin: 12/30/16 09:03 Dose: 40 mg Repaglinide (Prandin) 0.5 mg PO TIDAC [facility] Last Admin: 12/30/16 18:00 Dose: 0.5 mg Sennosides (Senokot Tab) 25.8 mg PO HS [facility] Last Admin: 12/30/16 21:05 Dose: 25.8 mg Sevelamer HCl (Renagel) 1,600 mg PO TIDWM [facility] Last Admin: 12/30/16 18:00 Dose: 1,600 mg Topiramate (Topamax) 50 mg PO BID [facility] Last Admin: 12/30/16 17:58 Dose: 50 mg Vitamin B Complex/Vit C/Folic Acid (Nephro-Ajay) 1 tab PO DAILY [facility] Last Admin: 12/30/16 09:03 Dose: 1 tab - Labs Labs: 12/28/16 08:20 12/30/16 20:17 PT 15.3 Seconds (9.8-13.1) H 12/02/16 13:05 INR 1.4 (0.9-1.2) H 12/02/16 13:05 APTT 37.0 Seconds (25.6-37.1) 12/02/16 13:05 Assessment and Plan (1) Diabetes Status: Chronic (2) ESRD (end stage renal disease) Status: Chronic (3) Cellulitis of leg Status: Chronic (4) Hyperlipidemia Status: Chronic (5) Back pain Status: Acute (6) Bacteremia due to Gram-negative bacteria Status: Acute (7) Diabetes mellitus type 2 with peripheral artery disease Status: Chronic (8) PVD (peripheral vascular disease) Status: Chronic (9) Osteomyelitis of right leg Status: Acute
[2016-12-31] MEDS: Meropenem 500 MG in Sodium Chloride 0.9% 100 ML IVPB SCH (00:35)
[2016-12-31] MEDS: guaiFENesin DM 200 mg-20 mg/10 ml UD PO PRN (03:43)
--- NOTE | 2016-12-31 07:07 | PN ---
ENDO FOLLOWUP NOTE LOCATION: Room 661. SUBJECTIVE: This is a 46-year-old female with uncontrolled type 2 diabetes, now with improved glycemic levels, just on a low-dose oral hypoglycemic drug therapy as given. Her glucose values have ranged from 101-138 mg/dL. Her latest chemistry showed a BUN of 38, sodium 143, potassium 4.5, chloride 105, CO2 25, glucose 77, and creatinine 4.7. So at this time, we will continue the same low-dose oral hypoglycemic drug therapy with Prandin given at 0.5 mg p.o. t.i.d. before meals as given. We will titrate incrementally as indicated to optimize metabolic control. We will follow and advise accordingly. Irene Ambrose MD
[2016-12-31] MEDS: Levalbuterol 0.63 MG/3 ML Inhal Soln UD INH SCH ×3 (08:03→23:15)
[2016-12-31] MEDS: Pantoprazole 40 mg EC Tab PO SCH (08:38)
[2016-12-31] MEDS: Multivitamin Vitamin B Complex (Nephro-Vite) Tab PO SCH (08:38)
[2016-12-31] MEDS: Santyl Collagenase OINTMENT TOP SCH (08:43)
--- NOTE | 2016-12-31 09:25 | CP.PCM.PN ---
Subjective - Date & Time of Evaluation Date of Evaluation: 12/31/16 Time of Evaluation: 09:19 - Subjective Subjective: Reports by various consultants reviewed and appreciated. Dr. Groves changed the right BK wound vac yesterday. I do not see any descriptions, but reportedly she took a picture of the wound for me. The right patella continues to be treated daily with Santyl and moist saline dressings. Dr. Lemon has increased the gentamicin to 1.2 gm MWF after dialyss. He discontinued meropenem and is looking for a new antibiotic to which the Klebsilla might be sensitive. Fortunately, the blood cultures from Permacath and PICC lines remain negative. Random glucose of 68 is noted along with Dr[address] Ambrose's evaluation and decision to continue the Prandin 0.5mg tid before meals. At dilysis yesterday 4 liters of fluid were removed. The patient feels better but still has a slight cough. Dr. Flores has stopped the Tessalon perles and ordered the Xopenex aerosol treatment to be given q8h. Overall, the patient feels good, is eating well, and is looking forward to physical and occupational therapy today. Objective - Vital Signs/Intake and Output Vital Signs (last 24 hours): Temp Pulse Resp BP Pulse Ox 98.8 F 93 H 20 151/78 H 98 12/31/16 07:53 12/31/16 07:53 12/31/16 07:53 12/31/16 07:53 12/31/16 07:53 - Medications Medications: Current Medications Acetaminophen (Tylenol 325mg Tab) 650 mg PO Q4 PRN PRN Reason: Fever >100.4 F Last Admin: 12/26/16 19:40 Dose: 650 mg Acetaminophen (Tylenol 325mg Tab) 650 mg PO Q4 PRN PRN Reason: Pain, moderate (4-7) Last Admin: 12/26/16 05:14 Dose: 650 mg Apixaban (Eliquis) 5 mg PO BID [facility] PRN Reason: Protocol Last Admin: 12/31/16 08:39 Dose: 5 mg Aspirin (Ecotrin) 81 mg PO DAILY [facility] Last Admin: 12/31/16 08:40 Dose: 81 mg Atorvastatin Calcium (Lipitor) 40 mg PO DAILY [facility] Last Admin: 12/31/16 08:41 Dose: 40 mg Benzonatate (Tessalon Perles) 200 mg PO TID PRN PRN Reason: Cough Last Admin: 12/28/16 16:49 Dose: 200 mg Calcium Carbonate (Oscal) 500 mg PO BIDWM [facility] Last Admin: 12/31/16 08:39 Dose: 500 mg Cinacalcet (Sensipar) 30 mg PO DAILY [facility] Last Admin: 12/31/16 08:41 Dose: 30 mg Collagenase (Santyl) 1 applic TOP DAILY [facility] Last Admin: 12/31/16 08:43 Dose: 1 applic Diphenhydramine HCl (Benadryl) 25 mg PO Q6 PRN PRN Reason: Itching / Pruritus Last Admin: 12/17/16 09:53 Dose: 25 mg Docusate Sodium (Colace) 100 mg PO BID [facility] Last Admin: 12/31/16 08:37 Dose: 100 mg Epoetin Tha (Procrit) 20,000 [facility] Last Admin: 12/30/16 13:07 Dose: 20,000 unit Ergocalciferol (Drisdol 50,000 Intl Units Cap) 1 cap PO WED [facility] Last Admin: 12/25/16 10:18 Dose: 1 cap Fluconazole (Diflucan) 100 mg PO DAILY [facility] Last Admin: 12/31/16 08:40 Dose: 100 mg Gabapentin (Neurontin) 300 mg PO TID [facility] Last Admin: 12/31/16 08:36 Dose: 300 mg Guaifenesin/Dextromethorphan (Robitussin Dm) 10 ml PO Q4 PRN PRN Reason: Cough Last Admin: 12/31/16 03:43 Dose: 10 ml Hydrocortisone (Anusol-Hc) 1 applic [place] BID PRN PRN Reason: Inflammation Hydromorphone HCl (Dilaudid) 1 mg IVP Q4H PRN PRN Reason: Pain, severe (8-10) Last Admin: 12/31/16 08:47 Dose: 1 mg Meropenem 500 mg/ Sodium (Chloride) 100 mls @ 100 mls/hr IVPB DAILY@0100 [facility] Last Admin: 12/31/16 00:35 Dose: 100 mls/hr Gentamicin Sulfate/Sodium Chloride (Gentamicin 100mg/100ml Ns) 100 mg in 100 mls @ 100 mls/hr IVPB MWF [facility] Last Admin: 12/30/16 09:01 Dose: 100 mls/hr Tigecycline 25 mg/ Sodium (Chloride) 100 mls @ 100 mls/hr IVPB Q12 [facility] Last Admin: 12/30/16 20:58 Dose: 100 mls/hr Sodium Chloride (Sodium Chloride 0.45%) 500 mls @ 10 mls/hr IV .Q24H [facility] Last Admin: 12/30/16 18:00 Dose: 10 mls/hr Daptomycin 650 mg/ Sodium (Chloride) 100 mls @ 100 mls/hr [facility] Stop: 01/15/17 09:59 Last Admin: 12/30/16 17:58 Dose: 100 mls/hr Gentamicin Sulfate 120 mg/ (Sodium Chloride) 253 mls @ 168.667 mls/hr IVPB [facility] Levalbuterol HCl (Xopenex) 0.63 mg INH RQ8 [facility] Last Admin: 12/31/16 08:03 Dose: 0.63 mg Nystatin (Nystop Topical Powder) 1 applic TOP BID [facility] Last Admin: 12/31/16 08:40 Dose: 1 applic Ondansetron HCl (Zofran Inj) 4 mg IVP Q6 PRN PRN Reason: Nausea/Vomiting Last Admin: 09/19/16 10:26 Dose: 4 mg Pantoprazole Sodium (Protonix Ec Tab) 40 mg PO DAILY [facility] Last Admin: 12/31/16 08:38 Dose: 40 mg Repaglinide (Prandin) 0.5 mg PO TIDAC [facility] Last Admin: 12/31/16 08:38 Dose: 0.5 mg Sennosides (Senokot Tab) 25.8 mg PO HS [facility] Last Admin: 12/30/16 21:05 Dose: 25.8 mg Sevelamer HCl (Renagel) 1,600 mg PO TIDWM [facility] Last Admin: 12/31/16 08:36 Dose: 1,600 mg Topiramate (Topamax) 50 mg PO BID [facility] Last Admin: 12/31/16 08:38 Dose: 50 mg Vitamin B Complex/Vit C/Folic Acid (Nephro-Ajay) 1 tab PO DAILY [facility] Last Admin: 12/31/16 08:38 Dose: 1 tab - Labs Labs: 12/28/16 08:20 12/30/16 20:17 PT 15.3 Seconds (9.8-13.1) H 12/02/16 13:05 INR 1.4 (0.9-1.2) H 12/02/16 13:05 APTT 37.0 Seconds (25.6-37.1) 12/02/16 13:05 - Head Exam Head Exam: NORMAL INSPECTION - Eye Exam Eye Exam: Normal appearance - ENT Exam ENT Exam: Mucous Membranes Moist - Respiratory Exam Respiratory Exam: NORMAL BREATHING PATTERN Additional comments: Some inspiratory crackles at bases ?? - Cardiovascular Exam Cardiovascular Exam: REGULAR RHYTHM, +S1, +S2 - GI/Abdominal Exam GI & Abdominal Exam: Soft - Extremities Exam Additional comments: Hands and L residual limb warm and without lesions. Right BK wound vac in place with no leaks and minimal drainage. Left femoral PICC line intact. - Back Exam Back Exam: NORMAL INSPECTION - Neurological Exam Neurological Exam: Alert, CN II-XII Intact, Oriented x3 - Psychiatric Exam Psychiatric exam: Normal Affect, Normal Mood - Skin Skin Exam: Dry, Normal Color, Warm Assessment and Plan (1) Status post below knee amputation of right lower extremity Assessment & Plan: Making progress in healing right BK amputation site, but it is slow going. We are searching for a new antibiotic to combat the MDR Klebsiella. PT and OT continue. Continue IV gentamicin, daptomycin, and tigacycline along with po fluconazole. Status: Acute (2) ESRD (end stage renal disease) on dialysis Assessment & Plan: stable Status: Chronic (3) DM type 2 (diabetes mellitus, type 2) Assessment & Plan: Controlled nicely on Prandin. Status: Chronic (4) Coagulopathy Assessment & Plan: Thromophilia is well managed on Eliquis and aspirin. Status: Chronic (5) Peripheral arterial occlusive disease Status: Chronic
--- NOTE | 2016-12-31 10:14 | CP.PCM.PN ---
Subjective - Date & Time of Evaluation Date of Evaluation: 12/31/16 Time of Evaluation: 10:11 - Subjective Subjective: Dr Thomas's note appreciated. Still has some residual cough, but improved. Continue same regimen. Repeat a portable CXR after the next dialysis session completed tomorrow. Objective - Vital Signs/Intake and Output Vital Signs (last 24 hours): Temp Pulse Resp BP Pulse Ox 98.8 F 93 H 20 151/78 H 98 12/31/16 07:53 12/31/16 07:53 12/31/16 07:53 12/31/16 07:53 12/31/16 07:53 - Medications Medications: Current Medications Acetaminophen (Tylenol 325mg Tab) 650 mg PO Q4 PRN PRN Reason: Fever >100.4 F Last Admin: 12/26/16 19:40 Dose: 650 mg Acetaminophen (Tylenol 325mg Tab) 650 mg PO Q4 PRN PRN Reason: Pain, moderate (4-7) Last Admin: 12/26/16 05:14 Dose: 650 mg Apixaban (Eliquis) 5 mg PO BID [facility] PRN Reason: Protocol Last Admin: 12/31/16 08:39 Dose: 5 mg Aspirin (Ecotrin) 81 mg PO DAILY [facility] Last Admin: 12/31/16 08:40 Dose: 81 mg Atorvastatin Calcium (Lipitor) 40 mg PO DAILY [facility] Last Admin: 12/31/16 08:41 Dose: 40 mg Benzonatate (Tessalon Perles) 200 mg PO TID PRN PRN Reason: Cough Last Admin: 12/28/16 16:49 Dose: 200 mg Calcium Carbonate (Oscal) 500 mg PO BIDWM [facility] Last Admin: 12/31/16 08:39 Dose: 500 mg Cinacalcet (Sensipar) 30 mg PO DAILY [facility] Last Admin: 12/31/16 08:41 Dose: 30 mg Collagenase (Santyl) 1 applic TOP DAILY [facility] Last Admin: 12/31/16 08:43 Dose: 1 applic Diphenhydramine HCl (Benadryl) 25 mg PO Q6 PRN PRN Reason: Itching / Pruritus Last Admin: 12/17/16 09:53 Dose: 25 mg Docusate Sodium (Colace) 100 mg PO BID [facility] Last Admin: 12/31/16 08:37 Dose: 100 mg Epoetin Tha (Procrit) 20,000 unit IV [facility] [place] Last Admin: 12/30/16 13:07 Dose: 20,000 unit Ergocalciferol (Drisdol 50,000 Intl Units Cap) 1 cap PO WED [facility] Last Admin: 12/25/16 10:18 Dose: 1 cap Fluconazole (Diflucan) 100 mg PO DAILY [facility] Last Admin: 12/31/16 08:40 Dose: 100 mg Gabapentin (Neurontin) 300 mg PO TID [facility] Last Admin: 12/31/16 08:36 Dose: 300 mg Guaifenesin/Dextromethorphan (Robitussin Dm) 10 ml PO Q4 PRN PRN Reason: Cough Last Admin: 12/31/16 03:43 Dose: 10 ml Hydrocortisone (Anusol-Hc) 1 applic [place] BID PRN PRN Reason: Inflammation Hydromorphone HCl (Dilaudid) 1 mg IVP Q4H PRN PRN Reason: Pain, severe (8-10) Last Admin: 12/31/16 08:47 Dose: 1 mg Meropenem 500 mg/ Sodium (Chloride) 100 mls @ 100 mls/hr IVPB DAILY@0100 [facility] Last Admin: 12/31/16 00:35 Dose: 100 mls/hr Gentamicin Sulfate/Sodium Chloride (Gentamicin 100mg/100ml Ns) 100 mg in 100 mls @ 100 mls/hr IVPB [facility] [place] Last Admin: 12/30/16 09:01 Dose: 100 mls/hr Tigecycline 25 mg/ Sodium (Chloride) 100 mls @ 100 mls/hr IVPB Q12 [facility] Last Admin: 12/30/16 20:58 Dose: 100 mls/hr Sodium Chloride (Sodium Chloride 0.45%) 500 mls @ 10 mls/hr IV .Q24H [facility] Last Admin: 12/30/16 18:00 Dose: 10 mls/hr Daptomycin 650 mg/ Sodium (Chloride) 100 mls @ 100 mls/hr IVPB [facility] Stop: 01/15/17 09:59 Last Admin: 12/30/16 17:58 Dose: 100 mls/hr Gentamicin Sulfate 120 mg/ (Sodium Chloride) 253 mls @ 168.667 mls/hr IVPB [facility] [place] Levalbuterol HCl (Xopenex) 0.63 mg INH RQ8 [facility] Last Admin: 12/31/16 08:03 Dose: 0.63 mg Nystatin (Nystop Topical Powder) 1 applic TOP BID [facility] Last Admin: 12/31/16 08:40 Dose: 1 applic Ondansetron HCl (Zofran Inj) 4 mg IVP Q6 PRN PRN Reason: Nausea/Vomiting Last Admin: 09/19/16 10:26 Dose: 4 mg Pantoprazole Sodium (Protonix Ec Tab) 40 mg PO DAILY [facility] [place] Last Admin: 12/31/16 08:38 Dose: 40 mg Repaglinide (Prandin) 0.5 mg PO TIDAC [facility] [place] Last Admin: 12/31/16 08:38 Dose: 0.5 mg Sennosides (Senokot Tab) 25.8 mg PO HS [facility] [place] Last Admin: 12/30/16 21:05 Dose: 25.8 mg Sevelamer HCl (Renagel) 1,600 mg PO TIDWM [facility] [place] Last Admin: 12/31/16 08:36 Dose: 1,600 mg Topiramate (Topamax) 50 mg PO BID [facility] [place] Last Admin: 12/31/16 08:38 Dose: 50 mg Vitamin B Complex/Vit C/Folic Acid (Nephro-Ajay) 1 tab PO DAILY [facility] [place] Last Admin: 12/31/16 08:38 Dose: 1 tab - Labs Labs: 12/28/16 08:20 12/30/16 20:17 PT 15.3 Seconds (9.8-13.1) H 12/02/16 13:05 INR 1.4 (0.9-1.2) H 12/02/16 13:05 APTT 37.0 Seconds (25.6-37.1) 12/02/16 13:05
--- NOTE | 2016-12-31 10:47 | CP.PCM.PN ---
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 End stage renal disease on hemodialysis (MWF) via permacath: Will plan for dialysis friday. No Acute need today. continue with Nephrovite 1 tab/day. Anemia: On MARTHA as Epogen 20,000 with HD. last Hb 10 Hyperphosphatemia: continue with current meds as renagel 1600 TID, last phos 4.8 Secondary hyperparathyroidism with Vit D Deficiency: continue with sensipar 30 mg/day. Last PTH level 423. recheck with next lab Status: Chronic Objective - Vital Signs/Intake and Output Vital Signs (last 24 hours): Temp Pulse Resp BP Pulse Ox 98.8 F 93 H 20 151/78 H 98 12/31/16 07:53 12/31/16 07:53 12/31/16 07:53 12/31/16 07:53 12/31/16 07:53 - Medications Medications: Current Medications Acetaminophen (Tylenol 325mg Tab) 650 mg PO Q4 PRN PRN Reason: Fever >100.4 F Last Admin: 12/26/16 19:40 Dose: 650 mg Acetaminophen (Tylenol 325mg Tab) 650 mg PO Q4 PRN PRN Reason: Pain, moderate (4-7) Last Admin: 12/26/16 05:14 Dose: 650 mg Apixaban (Eliquis) 5 mg PO BID [facility] PRN Reason: Protocol Last Admin: 12/31/16 08:39 Dose: 5 mg Aspirin (Ecotrin) 81 mg PO DAILY [facility] Last Admin: 12/31/16 08:40 Dose: 81 mg Atorvastatin Calcium (Lipitor) 40 mg PO DAILY [facility] Last Admin: 12/31/16 08:41 Dose: 40 mg Benzonatate (Tessalon Perles) 200 mg PO TID PRN PRN Reason: Cough Last Admin: 12/28/16 16:49 Dose: 200 mg [facility] ([facility]scal) [facility] Last Admin: 12/31/16 08:39 Dose: 500 mg Cinacalcet (Sensipar) 30 mg PO DAILY [facility] Last Admin: 12/31/16 08:41 Dose: 30 mg Collagenase (Santyl) 1 applic TOP DAILY [facility] Last Admin: 12/31/16 08:43 Dose: 1 applic Diphenhydramine HCl (Benadryl) 25 mg PO Q6 PRN PRN Reason: Itching / Pruritus Last Admin: 12/17/16 09:53 Dose: 25 mg Docusate Sodium (Colace) 100 mg PO BID [facility] Last Admin: 12/31/16 08:37 Dose: 100 mg Epoetin Tha (Procrit) [facility] Last Admin: 12/30/16 13:07 Dose: 20,000 unit Ergocalciferol (Drisdol 50,000 Intl Units Cap) 1 cap PO WED [facility] Last Admin: 12/25/16 10:18 Dose: 1 cap Fluconazole (Diflucan) 100 mg PO DAILY [facility] Last Admin: 12/31/16 08:40 Dose: 100 mg Gabapentin (Neurontin) 300 mg PO TID [facility] Last Admin: 12/31/16 08:36 Dose: 300 mg Guaifenesin/Dextromethorphan (Robitussin Dm) 10 ml PO Q4 PRN PRN Reason: Cough Last Admin: 12/31/16 03:43 Dose: 10 ml Hydrocortisone (Anusol-Hc) 1 applic [place] BID PRN PRN Reason: Inflammation Hydromorphone HCl (Dilaudid) 1 mg IVP Q4H PRN PRN Reason: Pain, severe (8-10) Last Admin: 12/31/16 08:47 Dose: 1 mg Meropenem 500 mg/ Sodium (Chloride) 100 mls @ 100 mls/hr IVPB DAILY@0100 [facility] Last Admin: 12/31/16 00:35 Dose: 100 mls/hr Gentamicin Sulfate/Sodium Chloride (Gentamicin 100mg/100ml Ns) 100 mg in 100 mls @ 100 mls/hr IVPB MWF [facility] Last Admin: 12/30/16 09:01 Dose: 100 mls/hr Tigecycline 25 mg/ Sodium (Chloride) 100 mls @ 100 mls/hr IVPB Q12 [facility] Last Admin: 12/30/16 20:58 Dose: 100 mls/hr Sodium Chloride (Sodium Chloride 0.45%) 500 mls @ 10 mls/hr IV .Q24H [facility] Last Admin: 12/30/16 18:00 Dose: 10 mls/hr Daptomycin 650 mg/ Sodium (Chloride) 100 mls @ 100 mls/hr IVPB [facility] Stop: 01/15/17 09:59 Last Admin: 12/30/16 17:58 Dose: 100 mls/hr Gentamicin Sulfate 120 mg/ (Sodium Chloride) 253 mls @ 168.667 mls/hr IVPB [facility] Levalbuterol HCl (Xopenex) 0.63 mg INH RQ8 [facility] Last Admin: 12/31/16 08:03 Dose: 0.63 mg Nystatin (Nystop Topical Powder) 1 applic TOP BID [facility] Last Admin: 12/31/16 08:40 Dose: 1 applic Ondansetron HCl (Zofran Inj) 4 mg IVP Q6 PRN PRN Reason: Nausea/Vomiting Last Admin: 09/19/16 10:26 Dose: 4 mg Pantoprazole Sodium (Protonix Ec Tab) 40 mg PO DAILY [facility] Last Admin: 12/31/16 08:38 Dose: 40 mg Repaglinide (Prandin) 0.5 mg PO TIDAC [facility] Last Admin: 12/31/16 08:38 Dose: 0.5 mg Sennosides (Senokot Tab) 25.8 mg PO HS [facility] Last Admin: 12/30/16 21:05 Dose: 25.8 mg Sevelamer HCl (Renagel) 1,600 mg PO TIDWM [facility] Last Admin: 12/31/16 08:36 Dose: 1,600 mg Topiramate (Topamax) 50 mg PO BID [facility] Last Admin: 12/31/16 08:38 Dose: 50 mg Vitamin B Complex/Vit C/Folic Acid (Nephro-Ajay) 1 tab PO DAILY [facility] Last Admin: 12/31/16 08:38 Dose: 1 tab - Labs Labs: 12/28/16 08:20 12/30/16 20:17 PT 15.3 Seconds (9.8-13.1) H 12/02/16 13:05 INR 1.4 (0.9-1.2) H 12/02/16 13:05 APTT 37.0 Seconds (25.6-37.1) 07/24/17 13:05 Assessment and Plan (1) ESRD (end stage renal disease) Status: Chronic (2) Cellulitis of leg Status: Chronic
[2016-12-31] MEDS: SODIUM CHLORIDE 0.9% IVPB SCH ×2 (11:04→21:16)
[2016-12-31] MEDS: TIGECYCLINE IVPB SCH ×2 (11:04→21:16)
--- NOTE | 2016-12-31 18:11 | CP.PCM.PN ---
Subjective - Date & Time of Evaluation Date of Evaluation: 12/31/16 Time of Evaluation: 18:04 - Subjective Subjective: I D NOTE FURTHER TESTING SHOWED THAT MDR KLEBSIELLA WAS SENSITIVE TO AVYCAZ WHHICH HAS BEEN STARTED .94GM Q48H ,ON THE DAYS OF HD TO GIVE AFTER . IF HIGH GENTAMICIN TROUGH,WOULD DECREASE DOSE WE HAVE AT LEAST ANOTHER SENSITIVE ANTIBIOTIC MIGHT ALSO CONSIDER DISCONTINUING TYGACIL SHE HAS BEEN ON OVER 30 DAYS Objective - Vital Signs/Intake and Output Vital Signs (last 24 hours): Temp Pulse Resp BP Pulse Ox 99.3 F 103 H 18 144/80 99 12/31/16 16:09 12/31/16 16:09 12/31/16 16:09 12/31/16 16:09 12/31/16 16:09 - Medications Medications: Current Medications Acetaminophen (Tylenol 325mg Tab) 650 mg PO Q4 PRN PRN Reason: Fever >100.4 F Last Admin: 12/26/16 19:40 Dose: 650 mg Acetaminophen (Tylenol 325mg Tab) 650 mg PO Q4 PRN PRN Reason: Pain, moderate (4-7) Last Admin: 12/26/16 05:14 Dose: 650 mg Apixaban (Eliquis) 5 mg PO BID [facility] PRN Reason: Protocol Last Admin: 12/31/16 16:27 Dose: 5 mg Aspirin (Ecotrin) 81 mg PO DAILY [facility] Last Admin: 12/31/16 08:40 Dose: 81 mg Atorvastatin Calcium (Lipitor) 40 mg PO DAILY [facility] Last Admin: 12/31/16 08:41 Dose: 40 mg Benzonatate (Tessalon Perles) 200 mg PO TID PRN PRN Reason: Cough Last Admin: 12/28/16 16:49 Dose: 200 mg Calcium Carbonate (Oscal) 500 mg PO BIDWM [facility] Last Admin: 12/31/16 16:26 Dose: 500 mg Cinacalcet (Sensipar) 30 mg PO DAILY [facility] Last Admin: 12/31/16 08:41 Dose: 30 mg Collagenase (Santyl) 1 applic TOP DAILY [facility] Last Admin: 12/31/16 08:43 Dose: 1 applic Diphenhydramine HCl (Benadryl) 25 mg PO Q6 PRN PRN Reason: Itching / Pruritus Last Admin: 12/17/16 09:53 Dose: 25 mg Docusate Sodium (Colace) 100 mg PO BID [facility] Last Admin: 12/31/16 16:26 Dose: 100 mg Epoetin Tha (Procrit) 20,[address] [facility] Last Admin: 12/30/16 13:07 Dose: 20,000 unit Ergocalciferol (Drisdol 50,000 Intl Units Cap) 1 cap PO WED [facility] Last Admin: 12/25/16 10:18 Dose: 1 cap Fluconazole (Diflucan) 100 mg PO DAILY [facility] Last Admin: 12/31/16 08:40 Dose: 100 mg Gabapentin (Neurontin) 300 mg PO TID [facility] Last Admin: 12/31/16 16:27 Dose: 300 mg Guaifenesin/Dextromethorphan (Robitussin Dm) 10 ml PO Q4 PRN PRN Reason: Cough Last Admin: 12/31/16 03:43 Dose: 10 ml Hydrocortisone (Anusol-Hc) 1 applic [place] BID PRN PRN Reason: Inflammation Hydromorphone HCl (Dilaudid) 1 mg IVP Q4H PRN PRN Reason: Pain, severe (8-10) Last Admin: 12/31/16 15:16 Dose: 1 mg Gentamicin Sulfate/Sodium Chloride (Gentamicin 100mg/100ml Ns) 100 mg in 100 mls @ 100 mls/hr IVPB [facility] Last Admin: 12/30/16 09:01 Dose: 100 mls/hr Tigecycline 25 mg/ Sodium (Chloride) 100 mls @ 100 mls/hr IVPB Q12 [facility] Last Admin: 12/31/16 11:04 Dose: 100 mls/hr Sodium Chloride (Sodium Chloride 0.45%) 500 mls @ 10 mls/hr IV .Q24H [facility] Last Admin: 12/31/16 16:25 Dose: 10 mls/hr Daptomycin 650 mg/ Sodium (Chloride) 100 mls @ 100 mls/hr IVPB [facility] Stop: 01/15/17 09:59 Last Admin: 12/30/16 17:58 Dose: 100 mls/hr Gentamicin Sulfate 120 mg/ (Sodium Chloride) 253 mls @ 168.667 mls/hr IVPB [facility] Ceftazidime/Avibactam 0.94 gm/ (Sodium Chloride) 100 mls @ 50 mls/hr IV QOTHERDAY@2200 [facility] Levalbuterol HCl (Xopenex) 0.63 mg INH RQ8 [facility] Last Admin: 12/31/16 15:28 Dose: 0.63 mg Nystatin (Nystop Topical Powder) 1 applic TOP BID [facility] Last Admin: 12/31/16 16:26 Dose: 1 applic Ondansetron HCl (Zofran Inj) 4 mg IVP Q6 PRN PRN Reason: Nausea/Vomiting Last Admin: 09/19/16 10:26 Dose: 4 mg Pantoprazole Sodium (Protonix Ec Tab) 40 mg PO DAILY [facility] Last Admin: 12/31/16 08:38 Dose: 40 mg Repaglinide (Prandin) 0.5 mg PO TIDAC [facility] Last Admin: 12/31/16 16:25 Dose: 0.5 mg Sennosides (Senokot Tab) 25.8 mg PO HS [facility] Last Admin: 12/30/16 21:05 Dose: 25.8 mg Sevelamer HCl (Renagel) 1,600 mg PO TIDWM [facility] Last Admin: 12/31/16 16:27 Dose: 1,600 mg Topiramate (Topamax) 50 mg PO BID [facility] Last Admin: 12/31/16 16:25 Dose: 50 mg Vitamin B Complex/Vit C/Folic Acid (Nephro-Ajay) 1 tab PO DAILY [facility] Last Admin: 12/31/16 08:38 Dose: 1 tab - Labs Labs: 12/28/16 08:20 12/30/16 20:17 PT 15.3 Seconds (9.8-13.1) H 12/02/16 13:05 INR 1.4 (0.9-1.2) H 12/02/16 13:05 APTT 37.0 Seconds (25.6-37.1) 12/02/16 13:05
--- NOTE | 2016-12-31 21:58 | PN ---
LOCATION: Room 661. This is a 46-year-old female with recent uncontrolled type 2 insulin requiring diabetes, now being followed closely for metabolic management. She has been taken off of all insulin therapies as noted. Her glucose levels have remained near optimal with just low dose oral hypoglycemic drug therapy as given. Her latest glucose levels have ranged from 68 to 101 and 138 mg/dL. Her latest chemistry shows a BUN of 38, sodium 143, potassium 4.5, chloride 105, CO2 25, glucose 77 and creatinine 4.7. So at this time, we will continue the low dose Prandin given at 0.5 mg t.i.d. before meals as ordered. We will titrate incrementally as indicated to optimize metabolic control. We will follow and advise accordingly. Irene Ambrose MD
--- NOTE | 2016-12-31 22:27 | CP.PCM.PN ---
Subjective - Date & Time of Evaluation Date of Evaluation: 12/31/16 Time of Evaluation: 21:00 - Subjective Subjective: She is treated now for her Klebsiella Pneumonia infection by IV Avycaz. 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 Her Blood Glucose is under control of Dr Ambrose. She is receiving Hemodialysis regularly. There are no seizures. She is awake, alert, oriented. Less tachycardia. Objective - Vital Signs/Intake and Output Vital Signs (last 24 hours): Temp Pulse Resp BP Pulse Ox 99.3 F 103 H 18 144/80 99 12/31/16 16:09 12/31/16 16:09 12/31/16 16:09 12/31/16 16:09 12/31/16 16:09 - Medications Medications: Current Medications Acetaminophen (Tylenol 325mg Tab) 650 mg PO Q4 PRN PRN Reason: Fever >100.4 F Last Admin: 12/26/16 19:40 Dose: 650 mg Acetaminophen (Tylenol 325mg Tab) 650 mg PO Q4 PRN PRN Reason: Pain, moderate (4-7) Last Admin: 12/26/16 05:14 Dose: 650 mg Apixaban (Eliquis) 5 mg PO BID [facility] PRN Reason: Protocol Last Admin: 12/31/16 16:27 Dose: 5 mg Aspirin (Ecotrin) 81 mg PO DAILY [facility] Last Admin: 12/31/16 08:40 Dose: 81 mg Atorvastatin Calcium (Lipitor) 40 mg PO DAILY [facility] Last Admin: 12/31/16 08:41 Dose: 40 mg Benzonatate (Tessalon Perles) 200 mg PO TID PRN PRN Reason: Cough Last Admin: 12/28/16 16:49 Dose: 200 mg Calcium Carbonate (Oscal) 500 mg PO BIDWM [facility] Last Admin: 12/31/16 16:26 Dose: 500 mg Cinacalcet (Sensipar) 30 mg PO DAILY [facility] Last Admin: 12/31/16 08:41 Dose: 30 mg Collagenase (Santyl) 1 applic TOP DAILY [facility] Last Admin: 12/31/16 08:43 Dose: 1 applic Diphenhydramine HCl (Benadryl) 25 mg PO Q6 PRN PRN Reason: Itching / Pruritus Last Admin: 12/17/16 09:53 Dose: 25 mg Docusate Sodium (Colace) 100 mg PO BID [facility] Last Admin: 12/31/16 16:26 Dose: 100 mg Epoetin Tha (Procrit) 20,000 unit IV [facility] Last Admin: 12/30/16 13:07 Dose: 20,000 unit Ergocalciferol (Drisdol 50,000 Intl Units Cap) 1 cap PO WED [facility] Last Admin: 12/25/16 10:18 Dose: 1 cap Fluconazole (Diflucan) 100 mg PO DAILY [facility] Last Admin: 12/31/16 08:40 Dose: 100 mg Gabapentin (Neurontin) 300 mg PO TID [facility] Last Admin: 12/31/16 16:27 Dose: 300 mg Guaifenesin/Dextromethorphan (Robitussin Dm) 10 ml PO Q4 PRN PRN Reason: Cough Last Admin: 12/31/16 03:43 Dose: 10 ml Hydrocortisone (Anusol-Hc) 1 applic [place] BID PRN PRN Reason: Inflammation Hydromorphone HCl (Dilaudid) 1 mg IVP Q4H PRN PRN Reason: Pain, severe (8-10) Last Admin: 12/31/16 21:19 Dose: 1 mg Gentamicin Sulfate/Sodium Chloride (Gentamicin 100mg/100ml Ns) 100 mg in 100 mls @ 100 mls/hr IVPB [facility] Last Admin: 12/30/16 09:01 Dose: 100 mls/hr Tigecycline 25 mg/ Sodium (Chloride) 100 mls @ 100 mls/hr IVPB Q12 [facility] Last Admin: 12/31/16 21:16 Dose: 100 mls/hr Sodium Chloride (Sodium Chloride 0.45%) 500 mls @ 10 mls/hr IV .Q24H [facility] Last Admin: 12/31/16 16:25 Dose: 10 mls/hr Daptomycin 650 mg/ Sodium (Chloride) 100 mls @ 100 mls/hr IVPB [facility] Stop: 01/15/17 09:59 Last Admin: 12/30/16 17:58 Dose: 100 mls/hr Gentamicin Sulfate 120 mg/ (Sodium Chloride) 253 mls @ 168.667 mls/hr IVPB [facility] Ceftazidime/Avibactam 0.94 gm/ (Sodium Chloride) 100 mls @ 50 mls/hr IV QOTHERDAY@2200 [facility] Last Admin: 12/31/16 22:19 Dose: 50 mls/hr Levalbuterol HCl (Xopenex) 0.63 mg INH RQ8 [facility] Last Admin: 12/31/16 15:28 Dose: 0.63 mg Nystatin (Nystop Topical Powder) 1 applic TOP BID [facility] Last Admin: 12/31/16 16:26 Dose: 1 applic Ondansetron HCl (Zofran Inj) 4 mg IVP Q6 PRN PRN Reason: Nausea/Vomiting Last Admin: 09/19/16 10:26 Dose: 4 mg Pantoprazole Sodium (Protonix Ec Tab) 40 mg PO DAILY [facility] Last Admin: 12/31/16 08:38 Dose: 40 mg Repaglinide (Prandin) 0.5 mg PO TIDAC [facility] Last Admin: 12/31/16 16:25 Dose: 0.5 mg Sennosides (Senokot Tab) 25.8 mg PO HS [facility] Last Admin: 12/31/16 21:18 Dose: 25.8 mg Sevelamer HCl (Renagel) 1,600 mg PO TIDWM [facility] Last Admin: 12/31/16 16:27 Dose: 1,600 mg Topiramate (Topamax) 50 mg PO BID [facility] Last Admin: 12/31/16 16:25 Dose: 50 mg Vitamin B Complex/Vit C/Folic Acid (Nephro-Ajay) 1 tab PO DAILY [facility] Last Admin: 12/31/16 08:38 Dose: 1 tab - Labs Labs: 12/28/16 08:20 12/30/16 20:17 PT 15.3 Seconds (9.8-13.1) H 12/02/16 13:05 INR 1.4 (0.9-1.2) H 12/02/16 13:05 APTT 37.0 Seconds (25.6-37.1) 12/02/16 13:05 Assessment and Plan (1) Diabetes Status: Chronic (2) ESRD (end stage renal disease) Status: Chronic (3) Cellulitis of leg Status: Chronic (4) Hyperlipidemia Status: Chronic (5) Back pain Status: Acute (6) Bacteremia due to Gram-negative bacteria Status: Acute (7) Diabetes mellitus type 2 with peripheral artery disease Status: Chronic (8) PVD (peripheral vascular disease) Status: Chronic (9) Osteomyelitis of right leg Status: Acute
[2017-01-01] MEDS: guaiFENesin DM 200 mg-20 mg/10 ml UD PO PRN (04:43)
[2017-01-01] MEDS: Levalbuterol 0.63 MG/3 ML Inhal Soln UD INH SCH ×3 (07:49→23:31)
[2017-01-01] MEDS ORDERED: SODIUM CHLORIDE 0.9% IVPB SCH (09:00)
[2017-01-01] MEDS ORDERED: GENTAMICIN IVPB SCH (09:00)
[2017-01-01] MEDS: Pantoprazole 40 mg EC Tab PO SCH (09:46)
[2017-01-01] MEDS: Multivitamin Vitamin B Complex (Nephro-Vite) Tab PO SCH (09:48)
[2017-01-01] MEDS: Ergocalciferol 50,000 Intl Units Cap PO SCH (09:48)
[2017-01-01] MEDS: Santyl Collagenase OINTMENT TOP SCH (09:57)
[2017-01-01] MEDS: TIGECYCLINE IVPB SCH ×2 (12:43→21:31)
[2017-01-01] MEDS: SODIUM CHLORIDE 0.9% IVPB SCH ×2 (12:43→21:31)
--- NOTE | 2017-01-01 13:02 | CP.PCM.PN ---
Subjective - Date & Time of Evaluation Date of Evaluation: 01/01/17 Time of Evaluation: 12:59 - Subjective Subjective: Notes by Xochilt Diaz, and Alta Guadarrama appreciated. Patient is now on IV Avycaz and on high dose (1.2gm q MWF) gentamicin post each dialysis. Will d/c previous gentamicin dose. Gentamicin trough level was drawn by dialysis nurse this morning - result pending. Patient continues on iv tigacycline and daptomycin along with po fluconazole. Patient just got out of bed into wheelchair and will have PT/OT later today. Objective - Vital Signs/Intake and Output Vital Signs (last 24 hours): Temp Pulse Resp BP Pulse Ox 97.8 F 105 H 20 144/66 95 01/01/17 08:42 01/01/17 08:42 01/01/17 08:42 01/01/17 08:42 01/01/17 08:42 - Medications Medications: Current Medications Acetaminophen (Tylenol 325mg Tab) 650 mg PO Q4 PRN PRN Reason: Fever >100.4 F Last Admin: 12/26/16 19:40 Dose: 650 mg Acetaminophen (Tylenol 325mg Tab) 650 mg PO Q4 PRN PRN Reason: Pain, moderate (4-7) Last Admin: 12/26/16 05:14 Dose: 650 mg Apixaban (Eliquis) 5 mg PO BID [facility] PRN Reason: Protocol Last Admin: 01/01/17 09:47 Dose: 5 mg Aspirin (Ecotrin) 81 mg PO DAILY [facility] Last Admin: 01/01/17 09:45 Dose: 81 mg Atorvastatin Calcium (Lipitor) 40 mg PO DAILY [facility] Last Admin: 01/01/17 09:48 Dose: 40 mg Benzonatate (Tessalon Perles) 200 mg PO TID PRN PRN Reason: Cough Last Admin: 12/28/16 16:49 Dose: 200 mg Calcium Carbonate (Oscal) 500 mg PO BIDWM [facility] Last Admin: 01/01/17 09:47 Dose: 500 mg Cinacalcet (Sensipar) 30 mg PO DAILY [facility] Last Admin: 01/01/17 09:44 Dose: 30 mg Collagenase (Santyl) 1 applic TOP DAILY [facility] Last Admin: 01/01/17 09:57 Dose: 1 applic Diphenhydramine HCl (Benadryl) 25 mg PO Q6 PRN PRN Reason: Itching / Pruritus Last Admin: 12/17/16 09:53 Dose: 25 mg Docusate Sodium (Colace) 100 mg PO BID [facility] Last Admin: 01/01/17 09:46 Dose: 100 mg Epoetin Tha (Procrit) 20,000 unit IV [facility] Last Admin: 12/30/16 13:07 Dose: 20,000 unit Ergocalciferol (Drisdol 50,000 Intl Units Cap) 1 cap PO WED [facility] Last Admin: 01/01/17 09:48 Dose: 1 cap Fluconazole (Diflucan) 100 mg PO DAILY [facility] Last Admin: 01/01/17 09:48 Dose: 100 mg Gabapentin (Neurontin) 300 mg PO TID [facility] Last Admin: 01/01/17 12:43 Dose: 300 mg Guaifenesin/Dextromethorphan (Robitussin Dm) 10 ml PO Q4 PRN PRN Reason: Cough Last Admin: 01/01/17 04:43 Dose: 10 ml Hydrocortisone (Anusol-Hc) 1 applic [place] BID PRN PRN Reason: Inflammation Hydromorphone HCl (Dilaudid) 1 mg IVP Q4H PRN PRN Reason: Pain, severe (8-10) Last Admin: 01/01/17 09:53 Dose: 1 mg Gentamicin Sulfate/Sodium Chloride (Gentamicin 100mg/100ml Ns) 100 mg in 100 mls @ 100 mls/hr IVPB [facility] Last Admin: 12/30/16 09:01 Dose: 100 mls/hr Tigecycline 25 mg/ Sodium (Chloride) 100 mls @ 100 mls/hr IVPB Q12 [facility] Last Admin: 01/01/17 12:43 Dose: 100 mls/hr Sodium Chloride (Sodium Chloride 0.45%) 500 mls @ 10 mls/hr IV .Q24H [facility] Last Admin: 12/31/16 16:25 Dose: 10 mls/hr Daptomycin 650 mg/ Sodium (Chloride) 100 mls @ 100 mls/hr IVPB [facility] Stop: 01/15/17 09:59 Last Admin: 12/30/16 17:58 Dose: 100 mls/hr Gentamicin Sulfate 120 mg/ (Sodium Chloride) 253 mls @ 168.667 mls/hr IVPB [facility] Ceftazidime/Avibactam 0.94 gm/ (Sodium Chloride) 100 mls @ 50 mls/hr IV QOTHERDAY@2200 [facility] Last Admin: 12/31/16 22:19 Dose: 50 mls/hr Levalbuterol HCl (Xopenex) 0.63 mg INH RQ8 [facility] Last Admin: 01/01/17 07:49 Dose: 0.63 mg Nystatin (Nystop Topical Powder) 1 applic TOP BID [facility] Last Admin: 01/01/17 09:45 Dose: 1 applic Ondansetron HCl (Zofran Inj) 4 mg IVP Q6 PRN PRN Reason: Nausea/Vomiting Last Admin: 09/19/16 10:26 Dose: 4 mg Pantoprazole Sodium (Protonix Ec Tab) 40 mg PO DAILY [facility] Last Admin: 01/01/17 09:46 Dose: 40 mg Repaglinide (Prandin) 0.5 mg PO TIDAC [facility] Last Admin: 01/01/17 12:42 Dose: 0.5 mg Sennosides (Senokot Tab) 25.8 mg PO HS [facility] Last Admin: 12/31/16 21:18 Dose: 25.8 mg Sevelamer HCl (Renagel) 1,600 mg PO TIDWM [facility] Last Admin: 01/01/17 12:42 Dose: 1,600 mg Topiramate (Topamax) 50 mg PO BID [facility] Last Admin: 01/01/17 09:45 Dose: 50 mg Vitamin B Complex/Vit C/Folic Acid (Nephro-Ajay) 1 tab PO DAILY [facility] Last Admin: 01/01/17 09:48 Dose: 1 tab - Labs Labs: 12/28/16 08:20 12/30/16 20:17 PT 15.3 Seconds (9.8-13.1) H 12/02/16 13:05 INR 1.4 (0.9-1.2) H 12/02/16 13:05 APTT 37.0 Seconds (25.6-37.1) 12/02/16 13:05 Assessment and Plan (1) Status post below knee amputation of right lower extremity Status: Acute (2) ESRD (end stage renal disease) on dialysis Status: Chronic (3) DM type 2 (diabetes mellitus, type 2) Status: Chronic (4) Coagulopathy Status: Chronic (5) Peripheral arterial occlusive disease Status: Chronic
--- NOTE | 2017-01-01 13:09 | CP.PCM.PN ---
Subjective - Date & Time of Evaluation Date of Evaluation: 01/01/17 Time of Evaluation: 13:07 - Subjective Subjective: Notes by Xochilt Diaz, and Alta Guadarrama appreciated. Patient is now on IV Avycaz and on high dose (1.2gm q MWF) gentamicin post each dialysis. Will d/c previous gentamicin dose. Gentamicin trough level was drawn by dialysis nurse this morning - result pending. Patient continues on iv tigacycline and daptomycin along with po fluconazole. Patient just got out of bed into wheelchair and will have PT/OT later today. Four liters removed at HD today. Still with sl. cough. T max 99.3 last 24 hours. Pulse 105 (reg) No new problems. Objective - Vital Signs/Intake and Output Vital Signs (last 24 hours): Temp Pulse Resp BP Pulse Ox 97.8 F 105 H 20 144/66 95 01/01/17 08:42 01/01/17 08:42 01/01/17 08:42 01/01/17 08:42 01/01/17 08:42 - Medications Medications: Current Medications Acetaminophen (Tylenol 325mg Tab) 650 mg PO Q4 PRN PRN Reason: Fever >100.4 F Last Admin: 12/26/16 19:40 Dose: 650 mg Acetaminophen (Tylenol 325mg Tab) 650 mg PO Q4 PRN PRN Reason: Pain, moderate (4-7) Last Admin: 12/26/16 05:14 Dose: 650 mg Apixaban (Eliquis) 5 mg PO BID [facility] PRN Reason: Protocol Last Admin: 01/01/17 09:47 Dose: 5 mg Aspirin (Ecotrin) 81 mg PO DAILY [facility] Last Admin: 01/01/17 09:45 Dose: 81 mg Atorvastatin Calcium (Lipitor) 40 mg PO DAILY [facility] Last Admin: 01/01/17 09:48 Dose: 40 mg Benzonatate (Tessalon Perles) 200 mg PO TID PRN PRN Reason: Cough Last Admin: 12/28/16 16:49 Dose: 200 mg Calcium Carbonate (Oscal) 500 mg PO BIDWM [facility] Last Admin: 01/01/17 09:47 Dose: 500 mg Cinacalcet (Sensipar) 30 mg PO DAILY [facility] Last Admin: 01/01/17 09:44 Dose: 30 mg Collagenase (Santyl) 1 applic TOP DAILY [facility] Last Admin: 01/01/17 09:57 Dose: 1 applic Diphenhydramine HCl (Benadryl) 25 mg PO Q6 PRN PRN Reason: Itching / Pruritus Last Admin: 12/17/16 09:53 Dose: 25 mg Docusate Sodium (Colace) 100 mg PO BID [facility] Last Admin: 01/01/17 09:46 Dose: 100 mg Epoetin Tha (Procrit) 20,000 unit IV [facility] Last Admin: 12/30/16 13:07 Dose: 20,000 unit Ergocalciferol (Drisdol 50,000 Intl Units Cap) 1 cap PO WED [facility] Last Admin: 01/01/17 09:48 Dose: 1 cap Fluconazole (Diflucan) 100 mg PO DAILY [facility] Last Admin: 01/01/17 09:48 Dose: 100 mg Gabapentin (Neurontin) 300 mg PO TID [facility] Last Admin: 01/01/17 12:43 Dose: 300 mg Guaifenesin/Dextromethorphan (Robitussin Dm) 10 ml PO Q4 PRN PRN Reason: Cough Last Admin: 01/01/17 04:43 Dose: 10 ml Hydrocortisone (Anusol-Hc) 1 applic [place] BID PRN PRN Reason: Inflammation Hydromorphone HCl (Dilaudid) 1 mg IVP Q4H PRN PRN Reason: Pain, severe (8-10) Last Admin: 01/01/17 09:53 Dose: 1 mg Gentamicin Sulfate/Sodium Chloride (Gentamicin 100mg/100ml Ns) 100 mg in 100 mls @ 100 mls/hr IVPB [facility] Last Admin: 12/30/16 09:01 Dose: 100 mls/hr Tigecycline 25 mg/ Sodium (Chloride) 100 mls @ 100 mls/hr IVPB Q12 [facility] Last Admin: 01/01/17 12:43 Dose: 100 mls/hr Sodium Chloride (Sodium Chloride 0.45%) 500 mls @ 10 mls/hr IV .Q24H [facility] Last Admin: 12/31/16 16:25 Dose: 10 mls/hr Daptomycin 650 mg/ Sodium (Chloride) 100 mls @ 100 mls/hr IVPB [facility] Stop: 01/15/17 09:59 Last Admin: 12/30/16 17:58 Dose: 100 mls/hr Gentamicin Sulfate 120 mg/ (Sodium Chloride) 253 mls @ 168.667 mls/hr IVPB MWF [facility] Ceftazidime/Avibactam 0.94 gm/ (Sodium Chloride) 100 mls @ 50 mls/hr IV QOTHERDAY@2200 [facility] Last Admin: 12/31/16 22:19 Dose: 50 mls/hr Levalbuterol HCl (Xopenex) 0.63 mg INH RQ8 [facility] Last Admin: 01/01/17 07:49 Dose: 0.63 mg Nystatin (Nystop Topical Powder) 1 applic TOP BID [facility] Last Admin: 01/01/17 09:45 Dose: 1 applic Ondansetron HCl (Zofran Inj) 4 mg IVP Q6 PRN PRN Reason: Nausea/Vomiting Last Admin: 09/19/16 10:26 Dose: 4 mg Pantoprazole Sodium (Protonix Ec Tab) 40 mg PO DAILY [facility] Last Admin: 01/01/17 09:46 Dose: 40 mg Repaglinide (Prandin) 0.5 mg PO TIDAC [facility] Last Admin: 01/01/17 12:42 Dose: 0.5 mg Sennosides (Senokot Tab) 25.8 mg PO HS [facility] Last Admin: 12/31/16 21:18 Dose: 25.8 mg Sevelamer HCl (Renagel) 1,600 mg PO TIDWM [facility] Last Admin: 01/01/17 12:42 Dose: 1,600 mg Topiramate (Topamax) 50 mg PO BID [facility] Last Admin: 01/01/17 09:45 Dose: 50 mg Vitamin B Complex/Vit C/Folic Acid (Nephro-Ajay) 1 tab PO DAILY [facility] Last Admin: 01/01/17 09:48 Dose: 1 tab - Labs Labs: 12/28/16 08:20 12/30/16 20:17 PT 15.3 Seconds (9.8-13.1) H 12/02/16 13:05 INR 1.4 (0.9-1.2) H 12/02/16 13:05 APTT 37.0 Seconds (25.6-37.1) 12/02/16 13:05 - Constitutional Appears: No Acute Distress - Head Exam Head Exam: NORMAL INSPECTION - Eye Exam Eye Exam: Normal appearance - ENT Exam ENT Exam: Mucous Membranes Moist - Neck Exam Neck Exam: Normal Inspection Additional comments: R subclavian Permacath intact. - Respiratory Exam Respiratory Exam: NORMAL BREATHING PATTERN Additional comments: Increased secretions in large airways. - Cardiovascular Exam Cardiovascular Exam: REGULAR RHYTHM, +S1, +S2 - GI/Abdominal Exam GI & Abdominal Exam: Soft - Extremities Exam Additional comments: Dressings and wound vac intact RLE. L femoral PICC line intact. Otherwise as before. - Back Exam Back Exam: NORMAL INSPECTION - Neurological Exam Neurological Exam: Alert, CN II-XII Intact, Oriented x3 - Psychiatric Exam Psychiatric exam: Normal Affect, Normal Mood - Skin Skin Exam: Dry, Normal Color, Warm Assessment and Plan (1) Status post below knee amputation of right lower extremity Assessment & Plan: Progressing slowly. Hopefully the new antibiotic will be highly effective and any residual infection will clear. Avycaz must be prescribed every 48 hours and be given afte hemodialysis since it will be dialyzed off. Dr. Lemon has written the orders. We will continue gentamicin at 1.2 gm MWF pending trough level. All other meds and PT/OT as before. Status: Acute (2) ESRD (end stage renal disease) on dialysis Status: Chronic (3) DM type 2 (diabetes mellitus, type 2) Status: Chronic (4) Coagulopathy Status: Chronic (5) Peripheral arterial occlusive disease Status: Chronic
[2017-01-01] MEDS: Epoetin Alfa 20000 UNIT/ML Inj IV SCH (14:42)
--- NOTE | 2017-01-01 14:53 | CP.PCM.PN ---
Subjective - Date & Time of Evaluation Date of Evaluation: 01/01/17 Time of Evaluation: 14:51 - Subjective Subjective: Patient just completed hemodialysis With ultrafiltration about 4 KG Patient tolerating very well Less coughing and shortness of breath Gentamicin level was done Patient receiving gentamicin 120 mg post each hemodialysis as noted per ID Objective - Vital Signs/Intake and Output Vital Signs (last 24 hours): Temp Pulse Resp BP Pulse Ox 97.8 F 105 H 20 144/66 95 01/01/17 08:42 01/01/17 08:42 01/01/17 08:42 01/01/17 08:42 01/01/17 08:42 - Medications Medications: Current Medications Acetaminophen (Tylenol 325mg Tab) 650 mg PO Q4 PRN PRN Reason: Fever >100.4 F Last Admin: 12/26/16 19:40 Dose: 650 mg Acetaminophen (Tylenol 325mg Tab) 650 mg PO Q4 PRN PRN Reason: Pain, moderate (4-7) Last Admin: 12/26/16 05:14 Dose: 650 mg Apixaban (Eliquis) 5 mg PO BID [facility] PRN Reason: Protocol Last Admin: 01/01/17 09:47 Dose: 5 mg Aspirin (Ecotrin) 81 mg PO DAILY [facility] Last Admin: 01/01/17 09:45 Dose: 81 mg Atorvastatin Calcium (Lipitor) 40 mg PO DAILY [facility] Last Admin: 01/01/17 09:48 Dose: 40 mg Benzonatate (Tessalon Perles) 200 mg PO TID PRN PRN Reason: Cough Last Admin: 12/28/16 16:49 Dose: 200 mg Calcium Carbonate (Oscal) 500 mg PO BIDWM [facility] Last Admin: 01/01/17 09:47 Dose: 500 mg Cinacalcet (Sensipar) 30 mg PO DAILY [facility] Last Admin: 01/01/17 09:44 Dose: 30 mg Collagenase (Santyl) 1 applic TOP DAILY [facility] Last Admin: 01/01/17 09:57 Dose: 1 applic Diphenhydramine HCl (Benadryl) 25 mg PO Q6 PRN PRN Reason: Itching / Pruritus Last Admin: 12/17/16 09:53 Dose: 25 mg Docusate Sodium (Colace) 100 mg PO BID [facility] Last Admin: 01/01/17 09:46 Dose: 100 mg Epoetin Tha (Procrit) 20,000 unit IV [facility] [place] Last Admin: 01/01/17 14:42 Dose: Not Given Ergocalciferol (Drisdol 50,000 Intl Units Cap) 1 cap PO WED [facility] Last Admin: 01/01/17 09:48 Dose: 1 cap Fluconazole (Diflucan) 100 mg PO DAILY [facility] Last Admin: 01/01/17 09:48 Dose: 100 mg Gabapentin (Neurontin) 300 mg PO TID [facility] Last Admin: 01/01/17 12:43 Dose: 300 mg Guaifenesin/Dextromethorphan (Robitussin Dm) 10 ml PO Q4 PRN PRN Reason: Cough Last Admin: 01/01/17 04:43 Dose: 10 ml Hydrocortisone (Anusol-Hc) 1 applic [place] BID PRN PRN Reason: Inflammation Hydromorphone HCl (Dilaudid) 1 mg IVP Q4H PRN PRN Reason: Pain, severe (8-10) Last Admin: 01/01/17 13:56 Dose: 1 mg Tigecycline 25 mg/ Sodium (Chloride) 100 mls @ 100 mls/hr IVPB Q12 [facility] Last Admin: 01/01/17 12:43 Dose: 100 mls/hr Sodium Chloride (Sodium Chloride 0.45%) 500 mls @ 10 mls/hr IV .Q24H [facility] Last Admin: 12/31/16 16:25 Dose: 10 mls/hr Daptomycin 650 mg/ Sodium (Chloride) 100 mls @ 100 mls/hr IVPB [facility] [place] Stop: 01/15/17 09:59 Last Admin: 01/01/17 13:52 Dose: 100 mls/hr Gentamicin Sulfate 120 mg/ (Sodium Chloride) 253 mls @ 168.667 mls/hr IVPB [facility] [place] Last Admin: 01/01/17 14:50 Dose: 168.667 mls/hr Ceftazidime/Avibactam 0.94 gm/ (Sodium Chloride) 100 mls @ 50 mls/hr IV QOTHERDAY@2200 [facility] Last Admin: 12/31/16 22:19 Dose: 50 mls/hr Levalbuterol HCl (Xopenex) 0.63 mg INH RQ8 [facility] Last Admin: 01/01/17 07:49 Dose: 0.63 mg Nystatin (Nystop Topical Powder) 1 applic TOP BID [facility] Last Admin: 01/01/17 09:45 Dose: 1 applic Ondansetron HCl (Zofran Inj) 4 mg IVP Q6 PRN PRN Reason: Nausea/Vomiting Last Admin: 09/19/16 10:26 Dose: 4 mg Pantoprazole Sodium (Protonix Ec Tab) 40 mg PO DAILY [facility] Last Admin: 01/01/17 09:46 Dose: 40 mg Repaglinide (Prandin) 0.5 mg PO TIDAC [facility] Last Admin: 01/01/17 12:42 Dose: 0.5 mg Sennosides (Senokot Tab) 25.8 mg PO HS [facility] Last Admin: 12/31/16 21:18 Dose: 25.8 mg Sevelamer HCl (Renagel) 1,600 mg PO TIDWM [facility] Last Admin: 01/01/17 12:42 Dose: 1,600 mg Topiramate (Topamax) 50 mg PO BID [facility] Last Admin: 01/01/17 09:45 Dose: 50 mg Vitamin B Complex/Vit C/Folic Acid (Nephro-Ajay) 1 tab PO DAILY [facility] Last Admin: 01/01/17 09:48 Dose: 1 tab - Labs Labs: 12/28/16 08:20 12/30/16 20:17 PT 15.3 Seconds (9.8-13.1) H 12/02/16 13:05 INR 1.4 (0.9-1.2) H 12/02/16 13:05 APTT 37.0 Seconds (25.6-37.1) 12/02/16 13:05 - Constitutional Appears: No Acute Distress - Eye Exam Eye Exam: Normal appearance - Respiratory Exam Respiratory Exam: absent: Chest Wall Tenderness - Cardiovascular Exam Cardiovascular Exam: absent: JVD, Rubs - Extremities Exam Extremities Exam: absent: Calf Tenderness - Back Exam Back Exam: absent: CVA tenderness (L), CVA tenderness (R) - Neurological Exam Neurological Exam: Alert Assessment and Plan (1) ESRD (end stage renal disease) Assessment & Plan: End stage renal disease no new changes patient receiving multiple antibiotics as noted The rest of the problem as noted the same 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 End stage renal disease on hemodialysis (MWF) via permacath: Will plan for dialysis friday. No Acute need today. continue with Nephrovite 1 tab/day. Anemia: On MARTHA as Epogen 20,000 with HD. last Hb 10 Hyperphosphatemia: continue with current meds as renagel 1600 TID, last phos 4.8 Secondary hyperparathyroidism with Vit D Deficiency: continue with sensipar 30 mg/day. Last PTH level 423. recheck with next lab Status: Chronic Status: Chronic (2) Cellulitis of leg Status: Chronic
--- NOTE | 2017-01-01 18:10 | CP.PCM.PN ---
Subjective - Date & Time of Evaluation Date of Evaluation: 01/01/17 (1) Time of Evaluation: 18:03 - Subjective Subjective: I D NOTE NO MICs for tygacil on most recent culture have again microbiology to do gentamicin trough is 2.9 Objective - Vital Signs/Intake and Output Vital Signs (last 24 hours): Temp Pulse Resp BP Pulse Ox 97.8 F 105 H 20 144/66 95 01/01/17 08:42 01/01/17 08:42 01/01/17 08:42 01/01/17 08:42 01/01/17 08:42 - Medications Medications: Current Medications Acetaminophen (Tylenol 325mg Tab) 650 mg PO Q4 PRN PRN Reason: Fever >100.4 F Last Admin: 12/26/16 19:40 Dose: 650 mg Acetaminophen (Tylenol 325mg Tab) 650 mg PO Q4 PRN PRN Reason: Pain, moderate (4-7) Last Admin: 12/26/16 05:14 Dose: 650 mg Apixaban (Eliquis) 5 mg PO BID [facility] PRN Reason: Protocol Last Admin: 01/01/17 16:46 Dose: 5 mg Aspirin (Ecotrin) 81 mg PO DAILY [facility] Last Admin: 01/01/17 09:45 Dose: 81 mg Atorvastatin Calcium (Lipitor) 40 mg PO DAILY [facility] Last Admin: 01/01/17 09:48 Dose: 40 mg Benzonatate (Tessalon Perles) 200 mg PO TID PRN PRN Reason: Cough Last Admin: 12/28/16 16:49 Dose: 200 mg Calcium Carbonate (Oscal) 500 mg PO BIDWM [facility] Last Admin: 01/01/17 16:45 Dose: 500 mg Cinacalcet (Sensipar) 30 mg PO DAILY [facility] Last Admin: 01/01/17 09:44 Dose: 30 mg Collagenase (Santyl) 1 applic TOP DAILY [facility] Last Admin: 01/01/17 09:57 Dose: 1 applic Diphenhydramine HCl (Benadryl) 25 mg PO Q6 PRN PRN Reason: Itching / Pruritus Last Admin: 12/17/16 09:53 Dose: 25 mg Docusate Sodium (Colace) 100 mg PO BID [facility] Last Admin: 01/01/17 16:44 Dose: 100 mg Epoetin Tha (Procrit) 20,000 unit IV MWF [facility] Last Admin: 01/01/17 14:42 Dose: Not Given Ergocalciferol (Drisdol 50,000 Intl Units Cap) 1 cap PO WED [facility] Last Admin: 01/01/17 09:48 Dose: 1 cap Fluconazole (Diflucan) 100 mg PO DAILY [facility] Last Admin: 01/01/17 09:48 Dose: 100 mg Gabapentin (Neurontin) 300 mg PO TID [facility] Last Admin: 01/01/17 16:45 Dose: 300 mg Guaifenesin/Dextromethorphan (Robitussin Dm) 10 ml PO Q4 PRN PRN Reason: Cough Last Admin: 01/01/17 04:43 Dose: 10 ml Hydrocortisone (Anusol-Hc) 1 applic [place] BID PRN PRN Reason: Inflammation Hydromorphone HCl (Dilaudid) 1 mg IVP Q4H PRN PRN Reason: Pain, severe (8-10) Last Admin: 01/01/17 13:56 Dose: 1 mg Tigecycline 25 mg/ Sodium (Chloride) 100 mls @ 100 mls/hr IVPB Q12 [facility] Last Admin: 01/01/17 12:43 Dose: 100 mls/hr Sodium Chloride (Sodium Chloride 0.45%) 500 mls @ 10 mls/hr IV .Q24H [facility] Last Admin: 01/01/17 16:48 Dose: 10 mls/hr Daptomycin 650 mg/ Sodium (Chloride) 100 mls @ 100 mls/hr IVPB [facility] Stop: 01/15/17 09:59 Last Admin: 01/01/17 13:52 Dose: 100 mls/hr Gentamicin Sulfate 120 mg/ (Sodium Chloride) 253 mls @ 168.667 mls/hr IVPB [facility] [place] Last Admin: 01/01/17 14:50 Dose: 168.667 mls/hr Ceftazidime/Avibactam 0.94 gm/ (Sodium Chloride) 100 mls @ 50 mls/hr IV QOTHERDAY@2200 [facility] Last Admin: 12/31/16 22:19 Dose: 50 mls/hr Levalbuterol HCl (Xopenex) 0.63 mg INH RQ8 [facility] Last Admin: 01/01/17 15:50 Dose: 0.63 mg Nystatin (Nystop Topical Powder) 1 applic TOP BID [facility] Last Admin: 01/01/17 16:44 Dose: 1 applic Ondansetron HCl (Zofran Inj) 4 mg IVP Q6 PRN PRN Reason: Nausea/Vomiting Last Admin: 09/19/16 10:26 Dose: 4 mg Pantoprazole Sodium (Protonix Ec Tab) 40 mg PO DAILY [facility] Last Admin: 01/01/17 09:46 Dose: 40 mg Repaglinide (Prandin) 0.5 mg PO TIDAC [facility] Last Admin: 01/01/17 16:43 Dose: 0.5 mg Sennosides (Senokot Tab) 25.8 mg PO HS [facility] Last Admin: 12/31/16 21:18 Dose: 25.8 mg Sevelamer HCl (Renagel) 1,600 mg PO TIDWM [facility] Last Admin: 01/01/17 16:44 Dose: 1,600 mg Topiramate (Topamax) 50 mg PO BID [facility] Last Admin: 01/01/17 16:44 Dose: 50 mg Vitamin B Complex/Vit C/Folic Acid (Nephro-Ajay) 1 tab PO DAILY [facility] Last Admin: 01/01/17 09:48 Dose: 1 tab - Labs Labs: 12/28/16 08:20 12/30/16 20:17 PT 15.3 Seconds (9.8-13.1) H 12/02/16 13:05 INR 1.4 (0.9-1.2) H 12/02/16 13:05 APTT 37.0 Seconds (25.6-37.1) 12/02/16 13:05
--- NOTE | 2017-01-01 20:32 | CP.PCM.PN ---
Subjective - Date & Time of Evaluation Date of Evaluation: 01/01/17 Time of Evaluation: 20:00 - Subjective Subjective: She is on antibiotics for her Klebsiella Pneumonia infection of the wound. She awake, alert, oriented X 3 No seizures, on Topamax 50 mg BID. DM adjusted by Dr Ambrose ESRD on Hemodialysis. M,W,F Objective - Vital Signs/Intake and Output Vital Signs (last 24 hours): Temp Pulse Resp BP Pulse Ox 97.8 F 105 H 20 144/66 95 01/01/17 08:42 01/01/17 08:42 01/01/17 08:42 01/01/17 08:42 01/01/17 08:42 - Medications Medications: Current Medications Acetaminophen (Tylenol 325mg Tab) 650 mg PO Q4 PRN PRN Reason: Fever >100.4 F Last Admin: 12/26/16 19:40 Dose: 650 mg Acetaminophen (Tylenol 325mg Tab) 650 mg PO Q4 PRN PRN Reason: Pain, moderate (4-7) Last Admin: 12/26/16 05:14 Dose: 650 mg Apixaban (Eliquis) 5 mg PO BID [facility] PRN Reason: Protocol Last Admin: 01/01/17 16:46 Dose: 5 mg Aspirin (Ecotrin) 81 mg PO DAILY [facility] Last Admin: 01/01/17 09:45 Dose: 81 mg Atorvastatin Calcium (Lipitor) 40 mg PO DAILY [facility] Last Admin: 01/01/17 09:48 Dose: 40 mg Benzonatate (Tessalon Perles) 200 mg PO TID PRN PRN Reason: Cough Last Admin: 12/28/16 16:49 Dose: 200 mg Calcium Carbonate (Oscal) 500 mg PO BIDWM [facility] Last Admin: 01/01/17 16:45 Dose: 500 mg Cinacalcet (Sensipar) 30 mg PO DAILY [facility] Last Admin: 01/01/17 09:44 Dose: 30 mg Collagenase (Santyl) 1 applic TOP DAILY [facility] Last Admin: 01/01/17 09:57 Dose: 1 applic Diphenhydramine HCl (Benadryl) 25 mg PO Q6 PRN PRN Reason: Itching / Pruritus Last Admin: 12/17/16 09:53 Dose: 25 mg Docusate Sodium (Colace) 100 mg PO BID [facility] Last Admin: 01/01/17 16:44 Dose: 100 mg Epoetin Tha (Procrit) 20,000 unit IV [facility] [place] Last Admin: 01/01/17 14:42 Dose: Not Given Ergocalciferol (Drisdol 50,000 Intl Units Cap) 1 cap PO WED [facility] Last Admin: 01/01/17 09:48 Dose: 1 cap Fluconazole (Diflucan) 100 mg PO DAILY [facility] Last Admin: 01/01/17 09:48 Dose: 100 mg Gabapentin (Neurontin) 300 mg PO TID [facility] Last Admin: 01/01/17 16:45 Dose: 300 mg Guaifenesin/Dextromethorphan (Robitussin Dm) 10 ml PO Q4 PRN PRN Reason: Cough Last Admin: 01/01/17 04:43 Dose: 10 ml Hydrocortisone (Anusol-Hc) 1 applic [place] BID PRN PRN Reason: Inflammation Hydromorphone HCl (Dilaudid) 1 mg IVP Q4H PRN PRN Reason: Pain, severe (8-10) Last Admin: 01/01/17 18:45 Dose: 1 mg Tigecycline 25 mg/ Sodium (Chloride) 100 mls @ 100 mls/hr IVPB Q12 [facility] Last Admin: 01/01/17 12:43 Dose: 100 mls/hr Sodium Chloride (Sodium Chloride 0.45%) 500 mls @ 10 mls/hr IV .Q24H [facility] Last Admin: 01/01/17 16:48 Dose: 10 mls/hr Daptomycin 650 mg/ Sodium (Chloride) 100 mls @ 100 mls/hr IVPB [facility] [place] Stop: 01/15/17 09:59 Last Admin: 01/01/17 13:52 Dose: 100 mls/hr Gentamicin Sulfate 120 mg/ (Sodium Chloride) 253 mls @ 168.667 mls/hr IVPB [facility] [place] Last Admin: 01/01/17 14:50 Dose: 168.667 mls/hr Ceftazidime/Avibactam 0.94 gm/ (Sodium Chloride) 100 mls @ 50 mls/hr IV QOTHERDAY@2200 [facility] Last Admin: 12/31/16 22:19 Dose: 50 mls/hr Levalbuterol HCl (Xopenex) 0.63 mg INH RQ8 [facility] Last Admin: 08/23/17 15:50 Dose: 0.63 mg Nystatin (Nystop Topical Powder) 1 applic TOP BID [facility] Last Admin: 01/01/17 16:44 Dose: 1 applic Ondansetron HCl (Zofran Inj) 4 mg IVP Q6 PRN PRN Reason: Nausea/Vomiting Last Admin: 09/19/16 10:26 Dose: 4 mg Pantoprazole Sodium (Protonix Ec Tab) 40 mg PO DAILY [facility] Last Admin: 01/01/17 09:46 Dose: 40 mg Repaglinide (Prandin) 0.5 mg PO TIDAC [facility] Last Admin: 01/01/17 16:43 Dose: 0.5 mg Sennosides (Senokot Tab) 25.8 mg PO HS [facility] Last Admin: 12/31/16 21:18 Dose: 25.8 mg Sevelamer HCl (Renagel) 1,600 mg PO TIDWM [facility] Last Admin: 01/01/17 16:44 Dose: 1,600 mg Topiramate (Topamax) 50 mg PO BID [facility] Last Admin: 01/01/17 16:44 Dose: 50 mg Vitamin B Complex/Vit C/Folic Acid (Nephro-Ajay) 1 tab PO DAILY [facility] Last Admin: 01/01/17 09:48 Dose: 1 tab - Labs Labs: 12/28/16 08:20 12/30/16 20:17 PT 15.3 Seconds (9.8-13.1) H 12/02/16 13:05 INR 1.4 (0.9-1.2) H 12/02/16 13:05 APTT 37.0 Seconds (25.6-37.1) 12/02/16 13:05 Assessment and Plan (1) Diabetes Status: Chronic (2) ESRD (end stage renal disease) Status: Chronic (3) Cellulitis of leg Status: Chronic (4) Hyperlipidemia Status: Chronic (5) Back pain Status: Acute (6) Bacteremia due to Gram-negative bacteria Status: Acute (7) Diabetes mellitus type 2 with peripheral artery disease Status: Chronic (8) PVD (peripheral vascular disease) Status: Chronic (9) Osteomyelitis of right leg Status: Acute
--- NOTE | 2017-01-01 22:01 | PN ---
DATE: ENDO FOLLOWUP NOTE SUBJECTIVE: This is a 46-year-old female with recent right below-knee amputation for severe underlying osteomyelitis and is currently undergoing IV antibiotic management and is also being followed closely for metabolic management. Her glycemic levels are fluctuating, but much improved at this time and the latest chemistry shows a BUN of 38, sodium 143, potassium 4.5, chloride 105, CO2 of 25, glucose 77, and creatinine 4.7. So, at this time we will continue the same low-dose oral hypoglycemic drug therapy as ordered with Prandin to be given as 0.5 mg t.i.d. before meals as ordered. We will obtain serial chemistries and supplement accordingly as needed. We will follow with you. Irene Ambrose MD
[2017-01-02] MEDS: Levalbuterol 0.63 MG/3 ML Inhal Soln UD INH SCH ×3 (08:26→23:07)
[2017-01-02] MEDS: Multivitamin Vitamin B Complex (Nephro-Vite) Tab PO SCH (09:00)
[2017-01-02] MEDS: TIGECYCLINE IVPB SCH ×2 (09:00→20:50)
[2017-01-02] MEDS: SODIUM CHLORIDE 0.9% IVPB SCH ×2 (09:00→20:50)
[2017-01-02] MEDS: Pantoprazole 40 mg EC Tab PO SCH (09:00)
[2017-01-02] MEDS: Santyl Collagenase OINTMENT TOP SCH (11:03)
--- NOTE | 2017-01-02 11:56 | CP.PCM.PN ---
Subjective - Date & Time of Evaluation Date of Evaluation: 01/02/17 Time of Evaluation: 11:55 - Subjective Subjective: No new event reported Patient is stable clinically No changes in management Continue monitoring and continue the same Hemodialysis tomorrow Objective - Vital Signs/Intake and Output Vital Signs (last 24 hours): Temp Pulse Resp BP Pulse Ox 98.3 F 104 H 20 146/50 L 96 01/02/17 08:25 01/02/17 08:25 01/02/17 08:25 01/02/17 08:25 01/02/17 08:25 - Medications Medications: Current Medications Acetaminophen (Tylenol 325mg Tab) 650 mg PO Q4 PRN PRN Reason: Fever >100.4 F Last Admin: 12/26/16 19:40 Dose: 650 mg Acetaminophen (Tylenol 325mg Tab) 650 mg PO Q4 PRN PRN Reason: Pain, moderate (4-7) Last Admin: 12/26/16 05:14 Dose: 650 mg Apixaban (Eliquis) 5 mg PO BID [facility] PRN Reason: Protocol Last Admin: 01/01/17 16:46 Dose: 5 mg Aspirin (Ecotrin) 81 mg PO DAILY [facility] Last Admin: 01/01/17 09:45 Dose: 81 mg Atorvastatin Calcium (Lipitor) 40 mg PO DAILY [facility] Last Admin: 01/01/17 09:48 Dose: 40 mg Benzonatate (Tessalon Perles) 200 mg PO TID PRN PRN Reason: Cough Last Admin: 12/28/16 16:49 Dose: 200 mg Calcium Carbonate (Oscal) 500 mg PO BIDWM [facility] Last Admin: 01/01/17 16:45 Dose: 500 mg Cinacalcet (Sensipar) 30 mg PO DAILY [facility] Last Admin: 01/01/17 09:44 Dose: 30 mg Collagenase (Santyl) 1 applic TOP DAILY [facility] Last Admin: 01/02/17 11:03 Dose: 1 applic Diphenhydramine HCl (Benadryl) 25 mg PO Q6 PRN PRN Reason: Itching / Pruritus Last Admin: 12/17/16 09:53 Dose: 25 mg Docusate Sodium (Colace) 100 mg PO BID [facility] Last Admin: 01/01/17 16:44 Dose: 100 mg Epoetin Tha (Procrit) 20,000 unit IV MWF [facility] Last Admin: 01/01/17 14:42 Dose: Not Given Ergocalciferol (Drisdol 50,000 Intl Units Cap) 1 cap PO WED [facility] Last Admin: 01/01/17 09:48 Dose: 1 cap Fluconazole (Diflucan) 100 mg PO DAILY [facility] Last Admin: 01/01/17 09:48 Dose: 100 mg Gabapentin (Neurontin) 300 mg PO TID [facility] Last Admin: 01/01/17 16:45 Dose: 300 mg Guaifenesin/Dextromethorphan (Robitussin Dm) 10 ml PO Q4 PRN PRN Reason: Cough Last Admin: 01/01/17 04:43 Dose: 10 ml Hydrocortisone (Anusol-Hc) 1 applic MD BID PRN PRN Reason: Inflammation Hydromorphone HCl (Dilaudid) 1 mg IVP Q4H PRN PRN Reason: Pain, severe (8-10) Last Admin: 01/02/17 06:06 Dose: 1 mg Tigecycline 25 mg/ Sodium (Chloride) 100 mls @ 100 mls/hr IVPB Q12 [facility] Last Admin: 01/01/17 21:31 Dose: 100 mls/hr Sodium Chloride (Sodium Chloride 0.45%) 500 mls @ 10 mls/hr IV .Q24H [facility] Last Admin: 01/01/17 16:48 Dose: 10 mls/hr Daptomycin 650 mg/ Sodium (Chloride) 100 mls @ 100 mls/hr IVPB [facility] Stop: 01/15/17 09:59 Last Admin: 01/01/17 13:52 Dose: 100 mls/hr Gentamicin Sulfate 120 mg/ (Sodium Chloride) 253 mls @ 168.667 mls/hr IVPB [facility] Last Admin: 01/01/17 14:50 Dose: 168.667 mls/hr Ceftazidime/Avibactam 0.94 gm/ (Sodium Chloride) 100 mls @ 50 mls/hr IV QOTHERDAY@2200 [facility] Last Admin: 12/31/16 22:19 Dose: 50 mls/hr Levalbuterol HCl (Xopenex) 0.63 mg INH RQ8 [facility] Last Admin: 01/02/17 08:26 Dose: 0.63 mg Nystatin (Nystop Topical Powder) 1 applic TOP BID [facility] Last Admin: 01/01/17 16:44 Dose: 1 applic Ondansetron HCl (Zofran Inj) 4 mg IVP Q6 PRN PRN Reason: Nausea/Vomiting Last Admin: 09/19/16 10:26 Dose: 4 mg Pantoprazole Sodium (Protonix Ec Tab) 40 mg PO DAILY [facility] Last Admin: 01/01/17 09:46 Dose: 40 mg Repaglinide (Prandin) 0.5 mg PO TIDAC [facility] Last Admin: 01/01/17 16:43 Dose: 0.5 mg Sennosides (Senokot Tab) 25.8 mg PO HS [facility] Last Admin: 01/01/17 21:35 Dose: Not Given Sevelamer HCl (Renagel) 1,600 mg PO TIDWM [facility] Last Admin: 01/01/17 16:44 Dose: 1,600 mg Topiramate (Topamax) 50 mg PO BID [facility] Last Admin: 01/01/17 16:44 Dose: 50 mg Vitamin B Complex/Vit C/Folic Acid (Nephro-Ajay) 1 tab PO DAILY [facility] Last Admin: 01/01/17 09:48 Dose: 1 tab - Labs Labs: 12/28/16 08:20 12/30/16 20:17 PT 15.3 Seconds (9.8-13.1) H 12/02/16 13:05 INR 1.4 (0.9-1.2) H 12/02/16 13:05 APTT 37.0 Seconds (25.6-37.1) 12/02/16 13:05 Assessment and Plan (1) ESRD (end stage renal disease) Status: Chronic (2) Cellulitis of leg Status: Chronic
--- NOTE | 2017-01-02 16:35 | CP.PCM.PN ---
Subjective - Date & Time of Evaluation Date of Evaluation: 01/02/17 Time of Evaluation: 16:27 - Subjective Subjective: Patient is comfortable - on IV gentamicin, tigacycline, daptomycin, and ceftazidime/avibactam (AVYcaz) plus oral fluconazole for persisten infection in right BK wound. His gentamicin level (which was a trough, taken just before HD) was 2.9 on 12/30.. According to [facility] lab the desireable levels are 0-2 for trough and 5-12 for peak. I note that this differs from the ranges provided alongside earlier results for this patient in March 2016 when the desirable trough level was 5-10. ??? In any case, I believe it is orta to continue the gentamicin dosing at 120 mg TIW after hemodialysis. She has less cough, no dyspnea, and no chest pain. There are no fevers, and vital signs are good. Physical therpy has been proceeding, but she cannot wear or stand on ther left BK prosthesis as it will require some adjustments per Physical therapist. Romeo (prosthetic provider) will be contacted to come and address this issue. I will order gentamicin TROUGH, CBC and CMP to be done at dialysis tomorrow. Objective - Vital Signs/Intake and Output Vital Signs (last 24 hours): Temp Pulse Resp BP Pulse Ox 98.3 F 104 H 17 147/63 98 01/02/17 09:00 01/02/17 09:00 01/02/17 09:00 01/02/17 09:00 01/02/17 09:00 - Medications Medications: Current Medications Acetaminophen (Tylenol 325mg Tab) 650 mg PO Q4 PRN PRN Reason: Fever >100.4 F Last Admin: 12/26/16 19:40 Dose: 650 mg Acetaminophen (Tylenol 325mg Tab) 650 mg PO Q4 PRN PRN Reason: Pain, moderate (4-7) Last Admin: 12/26/16 05:14 Dose: 650 mg Apixaban (Eliquis) 5 mg PO BID [facility] PRN Reason: Protocol Last Admin: 01/02/17 09:00 Dose: 5 mg Aspirin (Ecotrin) 81 mg PO DAILY [facility] Last Admin: 01/02/17 09:00 Dose: 81 mg Atorvastatin Calcium (Lipitor) 40 mg PO DAILY [facility] Last Admin: 01/02/17 09:00 Dose: 40 mg Benzonatate (Tessalon Perles) 200 mg PO TID PRN PRN Reason: Cough Last Admin: 12/28/16 16:49 Dose: 200 mg Calcium Carbonate (Oscal) 500 mg PO BIDWM [facility] Last Admin: 01/02/17 09:00 Dose: 500 mg Cinacalcet (Sensipar) 30 mg PO DAILY [facility] Last Admin: 01/02/17 09:00 Dose: 30 mg Collagenase (Santyl) 1 applic TOP DAILY [facility] Last Admin: 01/02/17 11:03 Dose: 1 applic Diphenhydramine HCl (Benadryl) 25 mg PO Q6 PRN PRN Reason: Itching / Pruritus Last Admin: 12/17/16 09:53 Dose: 25 mg Docusate Sodium (Colace) 100 mg PO BID [facility] Last Admin: 01/02/17 09:00 Dose: 100 mg Epoetin Tha (Procrit) 20,000 unit IV MWF [facility] Last Admin: 01/01/17 14:42 Dose: Not Given Ergocalciferol (Drisdol 50,000 Intl Units Cap) 1 cap PO WED [facility] Last Admin: 01/01/17 09:48 Dose: 1 cap Fluconazole (Diflucan) 100 mg PO DAILY [facility] Last Admin: 01/02/17 09:00 Dose: 100 mg Gabapentin (Neurontin) 300 mg PO TID [facility] Last Admin: 01/02/17 12:55 Dose: 300 mg Guaifenesin/Dextromethorphan (Robitussin Dm) 10 ml PO Q4 PRN PRN Reason: Cough Last Admin: 01/01/17 04:43 Dose: 10 ml Hydrocortisone (Anusol-Hc) 1 applic [place] BID PRN PRN Reason: Inflammation Hydromorphone HCl (Dilaudid) 1 mg IVP Q4H PRN PRN Reason: Pain, severe (8-10) Last Admin: 01/02/17 15:36 Dose: 1 mg Tigecycline 25 mg/ Sodium (Chloride) 100 mls @ 100 mls/hr IVPB Q12 [facility] Last Admin: 01/02/17 09:00 Dose: 100 mls/hr Sodium Chloride (Sodium Chloride 0.45%) 500 mls @ 10 mls/hr IV .Q24H [facility] Last Admin: 01/01/17 16:48 Dose: 10 mls/hr Daptomycin 650 mg/ Sodium (Chloride) 100 mls @ 100 mls/hr IVPB [facility] Stop: 01/15/17 09:59 Last Admin: 01/01/17 13:52 Dose: 100 mls/hr Gentamicin Sulfate 120 mg/ (Sodium Chloride) 253 mls @ 168.667 mls/hr IVPB [facility] Last Admin: 01/01/17 14:50 Dose: 168.667 mls/hr Ceftazidime/Avibactam 0.94 gm/ (Sodium Chloride) 100 mls @ 50 mls/hr IV QOTHERDAY@2200 [facility] Last Admin: 12/31/16 22:19 Dose: 50 mls/hr Levalbuterol HCl (Xopenex) 0.63 mg INH RQ8 [facility] Last Admin: 01/02/17 15:33 Dose: 0.63 mg Nystatin (Nystop Topical Powder) 1 applic TOP BID [facility] Last Admin: 01/02/17 09:00 Dose: 1 applic Ondansetron HCl (Zofran Inj) 4 mg IVP Q6 PRN PRN Reason: Nausea/Vomiting Last Admin: 09/19/16 10:26 Dose: 4 mg Pantoprazole Sodium (Protonix Ec Tab) 40 mg PO DAILY [facility] Last Admin: 01/02/17 09:00 Dose: 40 mg Repaglinide (Prandin) 0.5 mg PO TIDAC [facility] Last Admin: 01/02/17 12:56 Dose: 0.5 mg Sennosides (Senokot Tab) 25.8 mg PO HS [facility] Last Admin: 01/01/17 21:35 Dose: Not Given Sevelamer HCl (Renagel) 1,600 mg PO TIDWM [facility] Last Admin: 01/02/17 12:55 Dose: 1,600 mg Topiramate (Topamax) 50 mg PO BID [facility] Last Admin: 01/02/17 12:15 Dose: 50 mg Vitamin B Complex/Vit C/Folic Acid (Nephro-Ajay) 1 tab PO DAILY [facility] Last Admin: 01/02/17 09:00 Dose: 1 tab - Labs Labs: 12/28/16 08:20 12/30/16 20:17 PT 15.3 Seconds (9.8-13.1) H 12/02/16 13:05 INR 1.4 (0.9-1.2) H 12/02/16 13:05 APTT 37.0 Seconds (25.6-37.1) 12/02/16 13:05 - Constitutional Appears: No Acute Distress - Head Exam Head Exam: NORMAL INSPECTION - Eye Exam Eye Exam: Normal appearance - ENT Exam ENT Exam: Mucous Membranes Moist - Neck Exam Neck Exam: Normal Inspection - Respiratory Exam Respiratory Exam: NORMAL BREATHING PATTERN Additional comments: Some minor inspiratory scattered crackles at bases. - Cardiovascular Exam Cardiovascular Exam: REGULAR RHYTHM, +S1, +S2 - GI/Abdominal Exam GI & Abdominal Exam: Soft - Extremities Exam Additional comments: Dressing intact, wound vac not leaking, minimal drainage R BK site. Left femoral PICC line intact. - Back Exam Back Exam: NORMAL INSPECTION - Neurological Exam Neurological Exam: Alert, CN II-XII Intact, Oriented x3 - Psychiatric Exam Psychiatric exam: Normal Affect, Normal Mood - Skin Skin Exam: Dry, Normal Color, Warm Assessment and Plan (1) Status post below knee amputation of right lower extremity Status: Acute (2) ESRD (end stage renal disease) on dialysis Status: Chronic (3) DM type 2 (diabetes mellitus, type 2) Status: Chronic (4) Coagulopathy Status: Chronic (5) Peripheral arterial occlusive disease Status: Chronic
--- NOTE | 2017-01-02 20:11 | CP.PCM.PN ---
Subjective - Date & Time of Evaluation Date of Evaluation: 01/02/17 Time of Evaluation: 20:06 - Subjective Subjective: ID NOTE REVIEWED GENTAMICIN TROUGH AND DESPITE THEIR LEVELS HAVE DECREASE DOSE [id number] POST HD SHE IS RECEIVING MULTIPLE SENSITIVE ANTIBIOTICS AND IN VIEW OF EXTENDED RX TIME C PSSIBLE TOXICITY HAVE DECREASED DOSE Objective - Vital Signs/Intake and Output Vital Signs (last 24 hours): Temp Pulse Resp BP Pulse Ox 97.7 F 102 H 20 162/81 H 93 L 01/02/17 16:53 01/02/17 16:53 01/02/17 16:53 01/02/17 16:53 01/02/17 16:53 - Medications Medications: Current Medications Acetaminophen (Tylenol 325mg Tab) 650 mg PO Q4 PRN PRN Reason: Fever >100.4 F Last Admin: 12/26/16 19:40 Dose: 650 mg Acetaminophen (Tylenol 325mg Tab) 650 mg PO Q4 PRN PRN Reason: Pain, moderate (4-7) Last Admin: 12/26/16 05:14 Dose: 650 mg Apixaban (Eliquis) 5 mg PO BID [facility] PRN Reason: Protocol Last Admin: 01/02/17 16:39 Dose: 5 mg Aspirin (Ecotrin) 81 mg PO DAILY [facility] Last Admin: 01/02/17 09:00 Dose: 81 mg Atorvastatin Calcium (Lipitor) 40 mg PO DAILY [facility] Last Admin: 01/02/17 09:00 Dose: 40 mg Benzonatate (Tessalon Perles) 200 mg PO TID PRN PRN Reason: Cough Last Admin: 12/28/16 16:49 Dose: 200 mg Calcium Carbonate (Oscal) 500 mg PO BIDWM [facility] Last Admin: 01/02/17 16:39 Dose: 500 mg Cinacalcet (Sensipar) 30 mg PO DAILY [facility] Last Admin: 01/02/17 09:00 Dose: 30 mg Collagenase (Santyl) 1 applic TOP DAILY [facility] Last Admin: 01/02/17 11:03 Dose: 1 applic Diphenhydramine HCl (Benadryl) 25 mg PO Q6 PRN PRN Reason: Itching / Pruritus Last Admin: 12/17/16 09:53 Dose: 25 mg Docusate Sodium (Colace) 100 mg PO BID [facility] Last Admin: 01/02/17 16:39 Dose: 100 mg Epoetin Tha (Procrit) [facility] Last Admin: 01/01/17 14:42 Dose: Not Given Ergocalciferol (Drisdol 50,000 Intl Units Cap) 1 cap PO WED [facility] Last Admin: 01/01/17 09:48 Dose: 1 cap Fluconazole (Diflucan) 100 mg PO DAILY [facility] Last Admin: 01/02/17 09:00 Dose: 100 mg Gabapentin (Neurontin) 300 mg PO TID [facility] Last Admin: 01/02/17 16:39 Dose: 300 mg Guaifenesin/Dextromethorphan (Robitussin Dm) 10 ml PO Q4 PRN PRN Reason: Cough Last Admin: 01/01/17 04:43 Dose: 10 ml Hydrocortisone (Anusol-Hc) 1 applic [place] BID PRN PRN Reason: Inflammation Hydromorphone HCl (Dilaudid) 1 mg IVP Q4H PRN PRN Reason: Pain, severe (8-10) Last Admin: 01/02/17 15:36 Dose: 1 mg Tigecycline 25 mg/ Sodium (Chloride) 100 mls @ 100 mls/hr IVPB Q12 [facility] Last Admin: 01/02/17 09:00 Dose: 100 mls/hr Sodium Chloride (Sodium Chloride 0.45%) 500 mls @ 10 mls/hr IV .Q24H [facility] Last Admin: 01/02/17 16:40 Dose: 10 mls/hr Daptomycin 650 mg/ Sodium (Chloride) 100 mls @ 100 mls/hr IVPB [facility] Stop: 01/15/17 09:59 Last Admin: 01/01/17 13:52 Dose: 100 mls/hr Ceftazidime/Avibactam 0.94 gm/ (Sodium Chloride) 100 mls @ 50 mls/hr IV QOTHERDAY@2200 [facility] Last Admin: 12/31/16 22:19 Dose: 50 mls/hr Gentamicin Sulfate/Sodium Chloride (Gentamicin 100mg/100ml Ns) 100 mg in 100 mls @ 100 mls/hr IVPB [facility] Levalbuterol HCl (Xopenex) 0.63 mg INH RQ8 [facility] Last Admin: 01/02/17 15:33 Dose: 0.63 mg Nystatin (Nystop Topical Powder) 1 applic TOP BID [facility] Last Admin: 01/02/17 16:46 Dose: Not Given Ondansetron HCl (Zofran Inj) 4 mg IVP Q6 PRN PRN Reason: Nausea/Vomiting Last Admin: 09/19/16 10:26 Dose: 4 mg Pantoprazole Sodium (Protonix Ec Tab) 40 mg PO DAILY [facility] Last Admin: 01/02/17 09:00 Dose: 40 mg Repaglinide (Prandin) 0.5 mg PO TIDAC [facility] Last Admin: 01/02/17 16:40 Dose: 0.5 mg Sennosides (Senokot Tab) 25.8 mg PO HS [facility] Last Admin: 01/01/17 21:35 Dose: Not Given Sevelamer HCl (Renagel) 1,600 mg PO TIDWM [facility] Last Admin: 01/02/17 16:39 Dose: 1,600 mg Topiramate (Topamax) 50 mg PO BID [facility] Last Admin: 01/02/17 16:39 Dose: 50 mg Vitamin B Complex/Vit C/Folic Acid (Nephro-Ajay) 1 tab PO DAILY [facility] Last Admin: 01/02/17 09:00 Dose: 1 tab - Labs Labs: 12/28/16 08:20 12/30/16 20:17 PT 15.3 Seconds (9.8-13.1) H 12/02/16 13:05 INR 1.4 (0.9-1.2) H 12/02/16 13:05 APTT 37.0 Seconds (25.6-37.1) 12/02/16 13:05
--- NOTE | 2017-01-02 20:43 | PN ---
ENDO FOLLOWUP NOTE DATE: ROOM: 661. SUBJECTIVE: This is a 46-year-old female with recent uncontrolled type 2 diabetes now being followed closely for metabolic management. Fluctuating but not improved at this time and the latest glucose levels have ranged from 101 to 138 mg/dL. The latest chemistry showed a BUN of 38, sodium 143, potassium 4.5, chloride 105, CO2 of 25, glucose 77, and creatinine 4.7. So at this time, we will continue the low dose oral hyperglycemic drug therapy as given with Prandin as given at 0.5 mg p.o. t.i.d. before meals as ordered. We will titrate incrementally as indicated to optimize metabolic control. We will follow. Irene Ambrose MD
--- NOTE | 2017-01-02 21:33 | CP.PCM.PN ---
Subjective - Date & Time of Evaluation Date of Evaluation: 01/02/17 Time of Evaluation: 20:00 - Subjective Subjective: No deterioration in her clinical status, she is awake, alert, oriented. She is not suffering from seizures. VS show slightly higher BP and faster Pulse. She is receiving Antibiotics for her infection of Klebsiella Pneumonia. On Hemodialysis, M,W and F. Objective - Vital Signs/Intake and Output Vital Signs (last 24 hours): Temp Pulse Resp BP Pulse Ox 97.7 F 102 H 20 162/81 H 93 L 01/02/17 16:53 01/02/17 16:53 01/02/17 16:53 01/02/17 16:53 01/02/17 16:53 - Medications Medications: Current Medications Acetaminophen (Tylenol 325mg Tab) 650 mg PO Q4 PRN PRN Reason: Fever >100.4 F Last Admin: 12/26/16 19:40 Dose: 650 mg Acetaminophen (Tylenol 325mg Tab) 650 mg PO Q4 PRN PRN Reason: Pain, moderate (4-7) Last Admin: 12/26/16 05:14 Dose: 650 mg Apixaban (Eliquis) 5 mg PO BID [facility] PRN Reason: Protocol Last Admin: 01/02/17 16:39 Dose: 5 mg Aspirin (Ecotrin) 81 mg PO DAILY [facility] Last Admin: 01/02/17 09:00 Dose: 81 mg Atorvastatin Calcium (Lipitor) 40 mg PO DAILY [facility] Last Admin: 01/02/17 09:00 Dose: 40 mg Benzonatate (Tessalon Perles) 200 mg PO TID PRN PRN Reason: Cough Last Admin: 12/28/16 16:49 Dose: 200 mg Calcium Carbonate (Oscal) 500 mg PO BIDWM [facility] Last Admin: 01/02/17 16:39 Dose: 500 mg Cinacalcet (Sensipar) 30 mg PO DAILY [facility] Last Admin: 01/02/17 09:00 Dose: 30 mg Collagenase (Santyl) 1 applic TOP DAILY [facility] Last Admin: 01/02/17 11:03 Dose: 1 applic Diphenhydramine HCl (Benadryl) 25 mg PO Q6 PRN PRN Reason: Itching / Pruritus Last Admin: 12/17/16 09:53 Dose: 25 mg Docusate Sodium (Colace) 100 mg PO BID [facility] Last Admin: 01/02/17 16:39 Dose: 100 mg Epoetin Tha (Procrit) 20,000 [place] [facility] Last Admin: 01/01/17 14:42 Dose: Not Given Ergocalciferol (Drisdol 50,000 Intl Units Cap) 1 cap PO WED [facility] Last Admin: 01/01/17 09:48 Dose: 1 cap Fluconazole (Diflucan) 100 mg PO DAILY [facility] Last Admin: 01/02/17 09:00 Dose: 100 mg Gabapentin (Neurontin) 300 mg PO TID [facility] Last Admin: 01/02/17 16:39 Dose: 300 mg Guaifenesin/Dextromethorphan (Robitussin Dm) 10 ml PO Q4 PRN PRN Reason: Cough Last Admin: 01/01/17 04:43 Dose: 10 ml Hydrocortisone (Anusol-Hc) 1 applic [place] BID PRN PRN Reason: Inflammation Hydromorphone HCl (Dilaudid) 1 mg IVP Q4H PRN PRN Reason: Pain, severe (8-10) Last Admin: 01/02/17 21:04 Dose: 1 mg Tigecycline 25 mg/ Sodium (Chloride) 100 mls @ 100 mls/hr IVPB Q12 [facility] Last Admin: 01/02/17 20:50 Dose: 100 mls/hr Sodium Chloride (Sodium Chloride 0.45%) 500 mls @ 10 mls/hr IV .Q24H [facility] Last Admin: 01/02/17 16:40 Dose: 10 mls/hr Daptomycin 650 mg/ Sodium (Chloride) 100 mls @ 100 mls/hr [place]PB [facility] Stop: 01/15/17 09:59 Last Admin: 01/01/17 13:52 Dose: 100 mls/hr Ceftazidime/Avibactam 0.94 gm/ (Sodium Chloride) 100 mls @ 50 mls/hr IV QOTHERDAY@2200 [facility] Last Admin: 12/31/16 22:19 Dose: 50 mls/hr Gentamicin Sulfate/Sodium Chloride (Gentamicin 100mg/100ml Ns) 100 mg in 100 mls @ 100 mls/hr [place]PB [facility] Levalbuterol HCl (Xopenex) 0.63 mg INH RQ8 [facility] Last Admin: 01/02/17 15:33 Dose: 0.63 mg Nystatin (Nystop Topical Powder) 1 applic TOP BID [facility] Last Admin: 01/02/17 16:46 Dose: Not Given Ondansetron HCl (Zofran Inj) 4 mg IVP Q6 PRN PRN Reason: Nausea/Vomiting Last Admin: 09/19/16 10:26 Dose: 4 mg Pantoprazole Sodium (Protonix Ec Tab) 40 mg PO DAILY [facility] Last Admin: 01/02/17 09:00 Dose: 40 mg Repaglinide (Prandin) 0.5 mg PO TIDAC [facility] Last Admin: 01/02/17 16:40 Dose: 0.5 mg Sennosides (Senokot Tab) 25.8 mg PO HS [facility] Last Admin: 01/02/17 21:02 Dose: 25.8 mg Sevelamer HCl (Renagel) 1,600 mg PO TIDWM [facility] Last Admin: 01/02/17 16:39 Dose: 1,600 mg Topiramate (Topamax) 50 mg PO BID [facility] Last Admin: 01/02/17 16:39 Dose: 50 mg Vitamin B Complex/Vit C/Folic Acid (Nephro-Ajay) 1 tab PO DAILY [facility] Last Admin: 01/02/17 09:00 Dose: 1 tab - Labs Labs: 12/28/16 08:20 12/30/16 20:17 PT 15.3 Seconds (9.8-13.1) H 12/02/16 13:05 INR 1.4 (0.9-1.2) H 12/02/16 13:05 APTT 37.0 Seconds (25.6-37.1) 12/02/16 13:05 Assessment and Plan (1) Diabetes Status: Chronic (2) ESRD (end stage renal disease) Status: Chronic (3) Cellulitis of leg Status: Chronic (4) Hyperlipidemia Status: Chronic (5) Back pain Status: Acute (6) Bacteremia due to Gram-negative bacteria Status: Acute (7) Diabetes mellitus type 2 with peripheral artery disease Status: Chronic (8) PVD (peripheral vascular disease) Status: Chronic (9) Osteomyelitis of right leg Status: Acute
--- NOTE | 2017-01-03 07:15 | CP.PCM.PN ---
Subjective - Date & Time of Evaluation Date of Evaluation: 01/03/17 Time of Evaluation: 07:13 - Subjective Subjective: Vascular Surgery Progress Note for Dr. Doran Patient seen and examined at bedside. No acute event overnight. Wound vac to be changed this morning. Patient has no complaints. Objective - Vital Signs/Intake and Output Vital Signs (last 24 hours): Temp Pulse Resp BP Pulse Ox 98.5 F 103 H 19 128/79 94 L 01/03/17 00:00 01/03/17 00:00 01/03/17 00:00 01/03/17 00:00 01/03/17 00:00 - Medications Medications: Current Medications Acetaminophen (Tylenol 325mg Tab) 650 mg PO Q4 PRN PRN Reason: Fever >100.4 F Last Admin: 12/26/16 19:40 Dose: 650 mg Acetaminophen (Tylenol 325mg Tab) 650 mg PO Q4 PRN PRN Reason: Pain, moderate (4-7) Last Admin: 12/26/16 05:14 Dose: 650 mg Apixaban (Eliquis) 5 mg PO BID [facility] PRN Reason: Protocol Last Admin: 01/02/17 16:39 Dose: 5 mg Aspirin (Ecotrin) 81 mg PO DAILY [facility] Last Admin: 01/02/17 09:00 Dose: 81 mg Atorvastatin Calcium (Lipitor) 40 mg PO DAILY [facility] Last Admin: 01/02/17 09:00 Dose: 40 mg Benzonatate (Tessalon Perles) 200 mg PO TID PRN PRN Reason: Cough Last Admin: 12/28/16 16:49 Dose: 200 mg Calcium Carbonate (Oscal) 500 mg PO BIDWM [facility] Last Admin: 01/02/17 16:39 Dose: 500 mg Cinacalcet (Sensipar) 30 mg PO DAILY [facility] Last Admin: 01/02/17 09:00 Dose: 30 mg Collagenase (Santyl) 1 applic TOP DAILY [facility] Last Admin: 01/02/17 11:03 Dose: 1 applic Diphenhydramine HCl (Benadryl) 25 mg PO Q6 PRN PRN Reason: Itching / Pruritus Last Admin: 12/17/16 09:53 Dose: 25 mg Docusate Sodium (Colace) 100 mg PO BID [facility] Last Admin: 01/02/17 16:39 Dose: 100 mg Epoetin Tha (Procrit) 20,000 unit IV [facility] Last Admin: 01/01/17 14:42 Dose: Not Given Ergocalciferol (Drisdol 50,000 Intl Units Cap) 1 cap PO WED [facility] Last Admin: 01/01/17 09:48 Dose: 1 cap Fluconazole (Diflucan) 100 mg PO DAILY [facility] Last Admin: 01/02/17 09:00 Dose: 100 mg Gabapentin (Neurontin) 300 mg PO TID [facility] Last Admin: 01/02/17 16:39 Dose: 300 mg Guaifenesin/Dextromethorphan (Robitussin Dm) 10 ml PO Q4 PRN PRN Reason: Cough Last Admin: 01/01/17 04:43 Dose: 10 ml Hydrocortisone (Anusol-Hc) 1 applic [place] BID PRN PRN Reason: Inflammation Hydromorphone HCl (Dilaudid) 1 mg IVP Q4H PRN PRN Reason: Pain, severe (8-10) Last Admin: 01/03/17 06:31 Dose: 1 mg Tigecycline 25 mg/ Sodium (Chloride) 100 mls @ 100 mls/hr IVPB Q12 [facility] Last Admin: 01/02/17 20:50 Dose: 100 mls/hr Sodium Chloride (Sodium Chloride 0.45%) 500 mls @ 10 mls/hr IV .Q24H [facility] Last Admin: 01/02/17 16:40 Dose: 10 mls/hr Daptomycin 650 mg/ Sodium (Chloride) 100 mls @ 100 mls/hr IVPB [facility] Stop: 01/15/17 09:59 Last Admin: 01/01/17 13:52 Dose: 100 mls/hr Ceftazidime/Avibactam 0.94 gm/ (Sodium Chloride) 100 mls @ 50 mls/hr IV QOTHERDAY@2200 [facility] Last Admin: 01/02/17 22:48 Dose: 50 mls/hr Gentamicin Sulfate/Sodium Chloride (Gentamicin 100mg/100ml Ns) 100 mg in 100 mls @ 100 mls/hr IVPB [facility] [place] Levalbuterol HCl (Xopenex) 0.63 mg INH RQ8 [facility] Last Admin: 01/02/17 23:07 Dose: 0.63 mg Nystatin (Nystop Topical Powder) 1 applic TOP BID [facility] Last Admin: 01/02/17 16:46 Dose: Not Given Ondansetron HCl (Zofran Inj) 4 mg IVP Q6 PRN PRN Reason: Nausea/Vomiting Last Admin: 09/19/16 10:26 Dose: 4 mg Pantoprazole Sodium (Protonix Ec Tab) 40 mg PO DAILY [facility] Last Admin: 01/02/17 09:00 Dose: 40 mg Repaglinide (Prandin) 0.5 mg PO TIDAC [facility] Last Admin: 01/02/17 16:40 Dose: 0.5 mg Sennosides (Senokot Tab) 25.8 mg PO HS [facility] Last Admin: 01/02/17 21:02 Dose: 25.8 mg Sevelamer HCl (Renagel) 1,600 mg PO TIDWM [facility] Last Admin: 01/02/17 16:39 Dose: 1,600 mg Topiramate (Topamax) 50 mg PO BID [facility] Last Admin: 01/02/17 16:39 Dose: 50 mg Vitamin B Complex/Vit C/Folic Acid (Nephro-Ajay) 1 tab PO DAILY [facility] Last Admin: 01/02/17 09:00 Dose: 1 tab - Labs Labs: 12/28/16 08:20 12/30/16 20:17 PT 15.3 Seconds (9.8-13.1) H 12/02/16 13:05 INR 1.4 (0.9-1.2) H 12/02/16 13:05 APTT 37.0 Seconds (25.6-37.1) 12/02/16 13:05 - Constitutional Appears: No Acute Distress - Head Exam Head Exam: ATRAUMATIC, NORMOCEPHALIC - Eye Exam Eye Exam: Normal appearance - ENT Exam ENT Exam: Mucous Membranes Moist - Neck Exam Neck Exam: Full ROM - Respiratory Exam Respiratory Exam: NORMAL BREATHING PATTERN - Cardiovascular Exam Cardiovascular Exam: Tachycardia - Extremities Exam Additional comments: Bilateral BKAs R stump with wound vac in place R patellar wound dressing clean/dry/intact - Neurological Exam Neurological Exam: Alert, Awake, Oriented x3 - Psychiatric Exam Psychiatric exam: Normal Affect, Normal Mood - Skin Skin Exam: Dry, Warm Assessment and Plan - Assessment and Plan (Free Text) Plan: 46 F with bilateral BKA. R stump has granulation tissue. No leak on vac Wound vac will be changed today. Continue current wound care. Change VAC at bedside in 3-4 days. Continue Santyl to right knee patellar wound. Will DW Dr. Andreea Sauer PGY1
[2017-01-03] MEDS: Levalbuterol 0.63 MG/3 ML Inhal Soln UD INH SCH ×3 (07:46→23:28)
[2017-01-03] MEDS: Multivitamin Vitamin B Complex (Nephro-Vite) Tab PO SCH (09:49)
[2017-01-03] MEDS: Pantoprazole 40 mg EC Tab PO SCH (09:49)
[2017-01-03] MEDS: Santyl Collagenase OINTMENT TOP SCH (09:49)
[2017-01-03] MEDS: SODIUM CHLORIDE 0.9% IVPB SCH (10:58)
[2017-01-03] MEDS: TIGECYCLINE IVPB SCH (10:58)
--- NOTE | 2017-01-03 11:52 | CP.PCM.PN ---
Subjective - Date & Time of Evaluation Date of Evaluation: 01/03/17 Time of Evaluation: 11:50 - Subjective Subjective: No new changes reported No new event overnight Patient to receive dialysis shortly Objective - Vital Signs/Intake and Output Vital Signs (last 24 hours): Temp Pulse Resp BP Pulse Ox 97.9 F 107 H 20 168/78 H 95 01/03/17 09:00 01/03/17 09:00 01/03/17 09:00 01/03/17 09:00 01/03/17 09:00 - Medications Medications: Current Medications Acetaminophen (Tylenol 325mg Tab) 650 mg PO Q4 PRN PRN Reason: Fever >100.4 F Last Admin: 12/26/16 19:40 Dose: 650 mg Acetaminophen (Tylenol 325mg Tab) 650 mg PO Q4 PRN PRN Reason: Pain, moderate (4-7) Last Admin: 12/26/16 05:14 Dose: 650 mg Apixaban (Eliquis) 5 mg PO BID [facility] PRN Reason: Protocol Last Admin: 01/03/17 09:47 Dose: 5 mg Aspirin (Ecotrin) 81 mg PO DAILY [facility] Last Admin: 01/03/17 09:46 Dose: 81 mg Atorvastatin Calcium (Lipitor) 40 mg PO DAILY [facility] Last Admin: 01/03/17 09:45 Dose: 40 mg Benzonatate (Tessalon Perles) 200 mg PO TID PRN PRN Reason: Cough Last Admin: 12/28/16 16:49 Dose: 200 mg Calcium Carbonate (Oscal) 500 mg PO BIDWM [facility] Last Admin: 01/03/17 08:42 Dose: 500 mg Cinacalcet (Sensipar) 30 mg PO DAILY [facility] Last Admin: 01/03/17 09:42 Dose: 30 mg Collagenase (Santyl) 1 applic TOP DAILY [facility] Last Admin: 01/03/17 09:49 Dose: 1 applic Diphenhydramine HCl (Benadryl) 25 mg PO Q6 PRN PRN Reason: Itching / Pruritus Last Admin: 12/17/16 09:53 Dose: 25 mg Docusate Sodium (Colace) 100 mg PO BID [facility] Last Admin: 01/03/17 09:44 Dose: 100 mg Epoetin Tha (Procrit) 20,000 unit IV MWF [facility] Last Admin: 01/01/17 14:42 Dose: Not Given Ergocalciferol (Drisdol 50,000 Intl Units Cap) 1 cap PO WED [facility] Last Admin: 01/01/17 09:48 Dose: 1 cap Fluconazole (Diflucan) 100 mg PO DAILY [facility] Last Admin: 01/03/17 09:46 Dose: 100 mg Gabapentin (Neurontin) 300 mg PO TID [facility] Last Admin: 01/03/17 09:43 Dose: 300 mg Guaifenesin/Dextromethorphan (Robitussin Dm) 10 ml PO Q4 PRN PRN Reason: Cough Last Admin: 01/01/17 04:43 Dose: 10 ml Hydrocortisone (Anusol-Hc) 1 applic [place] BID PRN PRN Reason: Inflammation Hydromorphone HCl (Dilaudid) 1 mg IVP Q4H PRN PRN Reason: Pain, severe (8-10) Last Admin: 01/03/17 06:31 Dose: 1 mg Tigecycline 25 mg/ Sodium (Chloride) 100 mls @ 100 mls/hr IVPB Q12 [facility] Last Admin: 01/02/17 20:50 Dose: 100 mls/hr Sodium Chloride (Sodium Chloride 0.45%) 500 mls @ 10 mls/hr IV .Q24H [facility] Last Admin: 01/02/17 16:40 Dose: 10 mls/hr Daptomycin 650 mg/ Sodium (Chloride) 100 mls @ 100 mls/hr IVPB [facility] [place] Stop: 01/15/17 09:59 Last Admin: 01/01/17 13:52 Dose: 100 mls/hr Ceftazidime/Avibactam 0.94 gm/ (Sodium Chloride) 100 mls @ 50 mls/hr IV QOTHERDAY@2200 [facility] Last Admin: 01/02/17 22:48 Dose: 50 mls/hr Gentamicin Sulfate/Sodium Chloride (Gentamicin 100mg/100ml Ns) 100 mg in 100 mls @ 100 mls/hr IVPB [facility] [place] Levalbuterol HCl (Xopenex) 0.63 mg INH RQ8 [facility] Last Admin: 01/03/17 07:46 Dose: 0.63 mg Nystatin (Nystop Topical Powder) 1 applic TOP BID [facility] Last Admin: 01/03/17 09:40 Dose: 1 applic Ondansetron HCl (Zofran Inj) 4 mg IVP Q6 PRN PRN Reason: Nausea/Vomiting Last Admin: 09/19/16 10:26 Dose: 4 mg Pantoprazole Sodium (Protonix Ec Tab) 40 mg PO DAILY [facility] Last Admin: 01/03/17 09:49 Dose: 40 mg Repaglinide (Prandin) 0.5 mg PO TIDAC [facility] Last Admin: 01/03/17 07:48 Dose: 0.5 mg Sennosides (Senokot Tab) 25.8 mg PO HS [facility] Last Admin: 01/02/17 21:02 Dose: 25.8 mg Sevelamer HCl (Renagel) 1,600 mg PO TIDWM [facility] Last Admin: 01/03/17 08:43 Dose: 1,600 mg Topiramate (Topamax) 50 mg PO BID [facility] Last Admin: 01/03/17 09:43 Dose: 50 mg Vitamin B Complex/Vit C/Folic Acid (Nephro-Ajay) 1 tab PO DAILY [facility] Last Admin: 01/03/17 09:49 Dose: 1 tab - Labs Labs: 12/28/16 08:20 12/30/16 20:17 PT 15.3 Seconds (9.8-13.1) H 12/02/16 13:05 INR 1.4 (0.9-1.2) H 12/02/16 13:05 APTT 37.0 Seconds (25.6-37.1) 12/02/16 13:05 - Constitutional Appears: No Acute Distress - Eye Exam Eye Exam: Normal appearance - ENT Exam ENT Exam: Mucous Membranes Moist - Respiratory Exam Respiratory Exam: absent: Chest Wall Tenderness - Cardiovascular Exam Cardiovascular Exam: absent: JVD, Rubs - GI/Abdominal Exam GI & Abdominal Exam: absent: Guarding - Extremities Exam Extremities Exam: absent: Calf Tenderness - Back Exam Back Exam: absent: CVA tenderness (L), CVA tenderness (R) - Neurological Exam Neurological Exam: Alert Assessment and Plan (1) ESRD (end stage renal disease) Assessment & Plan: End stage renal disease on maintenance hemodialysis Friday patient to receive dialysis shortly order was given no changes in the composition of sodium 138 with a potassium of 2 mEq and bicarbonate 34 The rest of the medical problem patient receiving multiple antibiotics as noted by the primary team and infectious disease Hemoglobin has been stable And blood chemistry regarding kidney function stable on dialysis Status: Chronic (2) Cellulitis of leg Status: Chronic
--- NOTE | 2017-01-03 14:30 | CP.PCM.PN ---
Subjective - Date & Time of Evaluation Date of Evaluation: 01/03/17 Time of Evaluation: 14:25 - Subjective Subjective: Patient was seen by Dr. Doran this morning. R BK wound is granulating in very nicely - wound vac changed. R patella needs to be "scrubbed' and new Santyl applied. Nurse Jesu will be doing this now. Patient continues on 4 iv antibiotics and 1 po antibiotic for MDR Klebsiella infection R BK. Dr. Lemon has decreased the gentamicin back to 100mg tiw. She is awaiting HD now. Physical therapy done this morning, and she is wearing fitting sleeve for left BK prosthesis to maintain proper contour and observe results of any pressure on left knee. Room Service [employer] to make adjustments in L prosthesis. Less cough. No fevers or dyspnea. Objective - Vital Signs/Intake and Output Vital Signs (last 24 hours): Temp Pulse Resp BP Pulse Ox 97.9 F 107 H 20 168/78 H 95 01/03/17 09:00 01/03/17 09:00 01/03/17 09:00 01/03/17 09:00 01/03/17 09:00 - Medications Medications: Current Medications Acetaminophen (Tylenol 325mg Tab) 650 mg PO Q4 PRN PRN Reason: Fever >100.4 F Last Admin: 12/26/16 19:40 Dose: 650 mg Acetaminophen (Tylenol 325mg Tab) 650 mg PO Q4 PRN PRN Reason: Pain, moderate (4-7) Last Admin: 12/26/16 05:14 Dose: 650 mg Apixaban (Eliquis) 5 mg PO BID [facility] [place] PRN Reason: Protocol Last Admin: 01/03/17 09:47 Dose: 5 mg Aspirin (Ecotrin) 81 mg PO DAILY [facility] [place] Last Admin: 01/03/17 09:46 Dose: 81 mg Atorvastatin Calcium (Lipitor) 40 mg PO DAILY [facility] [place] Last Admin: 01/03/17 09:45 Dose: 40 mg Benzonatate (Tessalon Perles) 200 mg PO TID PRN PRN Reason: Cough Last Admin: 12/28/16 16:49 Dose: 200 mg Calcium Carbonate (Oscal) 500 mg PO BIDWM [facility] [place] Last Admin: 01/03/17 08:42 Dose: 500 mg Cinacalcet (Sensipar) 30 mg PO DAILY [facility] [place] Last Admin: 01/03/17 09:42 Dose: 30 mg Collagenase (Santyl) 1 applic TOP DAILY [facility] [place] Last Admin: 01/03/17 09:49 Dose: 1 applic Diphenhydramine HCl (Benadryl) 25 mg PO Q6 PRN PRN Reason: Itching / Pruritus Last Admin: 12/17/16 09:53 Dose: 25 mg Docusate Sodium (Colace) 100 mg PO BID [facility] [place] Last Admin: 01/03/17 09:44 Dose: 100 mg Epoetin Tha (Procrit) 20,000 unit IV [facility] [place] Last Admin: 01/01/17 14:42 Dose: Not Given Ergocalciferol (Drisdol 50,000 Intl Units Cap) 1 cap PO WED [facility] [place] Last Admin: 01/01/17 09:48 Dose: 1 cap Fluconazole (Diflucan) 100 mg PO DAILY [facility] [place] Last Admin: 01/03/17 09:46 Dose: 100 mg Gabapentin (Neurontin) 300 mg PO TID [facility] [place] Last Admin: 01/03/17 09:43 Dose: 300 mg Guaifenesin/Dextromethorphan (Robitussin Dm) 10 ml PO Q4 PRN PRN Reason: Cough Last Admin: 01/01/17 04:43 Dose: 10 ml Hydrocortisone (Anusol-Hc) 1 applic [place] BID PRN PRN Reason: Inflammation Hydromorphone HCl (Dilaudid) 1 mg IVP Q4H PRN PRN Reason: Pain, severe (8-10) Last Admin: 01/03/17 12:51 Dose: 1 mg Tigecycline 25 mg/ Sodium (Chloride) 100 mls @ 100 mls/hr IVPB Q12 [facility] [place] Last Admin: 01/02/17 20:50 Dose: 100 mls/hr Sodium Chloride (Sodium Chloride 0.45%) 500 mls @ 10 mls/hr IV .Q24H [facility] [place] Last Admin: 01/02/17 16:40 Dose: 10 mls/hr Daptomycin 650 mg/ Sodium (Chloride) 100 mls @ 100 mls/hr IVPB [facility] Stop: 01/15/17 09:59 Last Admin: 01/01/17 13:52 Dose: 100 mls/hr Ceftazidime/Avibactam 0.94 gm/ (Sodium Chloride) 100 mls @ 50 mls/hr IV QOTHERDAY@2200 [facility] [place] Last Admin: 01/02/17 22:48 Dose: 50 mls/hr Gentamicin Sulfate/Sodium Chloride (Gentamicin 100mg/100ml Ns) 100 mg in 100 mls @ 100 mls/hr IVPB MWF [facility] [place] Levalbuterol HCl (Xopenex) 0.63 mg INH RQ8 [facility] [place] Last Admin: 01/03/17 07:46 Dose: 0.63 mg Nystatin (Nystop Topical Powder) 1 applic TOP BID [facility] [place] Last Admin: 01/03/17 09:40 Dose: 1 applic Ondansetron HCl (Zofran Inj) 4 mg IVP Q6 PRN PRN Reason: Nausea/Vomiting Last Admin: 09/19/16 10:26 Dose: 4 mg Pantoprazole Sodium (Protonix Ec Tab) 40 mg PO DAILY [facility] [place] Last Admin: 01/03/17 09:49 Dose: 40 mg Repaglinide (Prandin) 0.5 mg PO TIDAC [facility] [place] Last Admin: 01/03/17 07:48 Dose: 0.5 mg Sennosides (Senokot Tab) 25.8 mg PO HS [facility] [place] Last Admin: 01/02/17 21:02 Dose: 25.8 mg Sevelamer HCl (Renagel) 1,600 mg PO TIDWM [facility] [place] Last Admin: 01/03/17 08:43 Dose: 1,600 mg Topiramate (Topamax) 50 mg PO BID [facility] [place] Last Admin: 01/03/17 09:43 Dose: 50 mg Vitamin B Complex/Vit C/Folic Acid (Nephro-Ajay) 1 tab PO DAILY [facility] [place] Last Admin: 01/03/17 09:49 Dose: 1 tab - Labs Labs: 12/28/16 08:20 12/30/16 20:17 PT 15.3 Seconds (9.8-13.1) H 12/02/16 13:05 INR 1.4 (0.9-1.2) H 12/02/16 13:05 APTT 37.0 Seconds (25.6-37.1) 12/02/16 13:05 - Constitutional Appears: No Acute Distress - Head Exam Head Exam: NORMAL INSPECTION - Eye Exam Eye Exam: Normal appearance - ENT Exam ENT Exam: Mucous Membranes Moist - Neck Exam Neck Exam: Normal Inspection - Respiratory Exam Respiratory Exam: NORMAL BREATHING PATTERN Additional comments: Still a few crackles at bases, but almost clear. - Cardiovascular Exam Cardiovascular Exam: REGULAR RHYTHM, +S1, +S2 - GI/Abdominal Exam GI & Abdominal Exam: Soft - Extremities Exam Additional comments: Picture texted to me of R BK wound shows smaller opening, excellent granulation tissue, and no purulence. R patella area showed build-up of necrotic fibrinous tissue, which has just been scrubbed off by Nurse Jesu. This area too is showing improvement. L femoral vein PICC line intact. - Back Exam Back Exam: CVA tenderness (L) - Neurological Exam Neurological Exam: Alert, CN II-XII Intact, Oriented x3 - Psychiatric Exam Psychiatric exam: Normal Affect, Normal Mood Assessment and Plan (1) Status post below knee amputation of right lower extremity Assessment & Plan: Making nice progress in wound healing. To continue present tx. Status: Acute (2) ESRD (end stage renal disease) on dialysis Status: Chronic (3) DM type 2 (diabetes mellitus, type 2) Status: Chronic (4) Coagulopathy Status: Chronic (5) Peripheral arterial occlusive disease Status: Chronic
[2017-01-03] MEDS: guaiFENesin DM 200 mg-20 mg/10 ml UD PO PRN (22:19)
--- NOTE | 2017-01-03 23:38 | CP.PCM.PN ---
Subjective - Date & Time of Evaluation Date of Evaluation: 01/03/17 Time of Evaluation: 23:35 - Subjective Subjective: Patient clinical condition is improving, based on Vascular Surgery Dr Jagdish Patel. She had a new Right Knee wound vacuum for drainage. She is receiving Antibiotics for her inefction that seems to be very effective. She is supposed to receive Hemodialysis today, but did not receive. She has no seizures. Objective - Vital Signs/Intake and Output Vital Signs (last 24 hours): Temp Pulse Resp BP Pulse Ox 98.2 F 100 H 20 139/60 93 L 01/03/17 16:51 01/03/17 16:51 01/03/17 16:51 01/03/17 16:51 01/03/17 16:51 - Medications Medications: Current Medications Acetaminophen (Tylenol 325mg Tab) 650 mg PO Q4 PRN PRN Reason: Fever >100.4 F Last Admin: 12/26/16 19:40 Dose: 650 mg Acetaminophen (Tylenol 325mg Tab) 650 mg PO Q4 PRN PRN Reason: Pain, moderate (4-7) Last Admin: 12/26/16 05:14 Dose: 650 mg Apixaban (Eliquis) 5 mg PO BID [facility] PRN Reason: Protocol Last Admin: 01/03/17 17:49 Dose: 5 mg Aspirin (Ecotrin) 81 mg PO DAILY [facility] Last Admin: 01/03/17 09:46 Dose: 81 mg Atorvastatin Calcium (Lipitor) 40 mg PO DAILY [facility] Last Admin: 01/03/17 09:45 Dose: 40 mg Benzonatate (Tessalon Perles) 200 mg PO TID PRN PRN Reason: Cough Last Admin: 12/28/16 16:49 Dose: 200 mg Calcium Carbonate (Oscal) 500 mg PO BIDWM [facility] Last Admin: 01/03/17 17:50 Dose: 500 mg Cinacalcet (Sensipar) 30 mg PO DAILY [facility] Last Admin: 01/03/17 09:42 Dose: 30 mg Collagenase (Santyl) 1 applic TOP DAILY [facility] Last Admin: 01/03/17 09:49 Dose: 1 applic Diphenhydramine HCl (Benadryl) 25 mg PO Q6 PRN PRN Reason: Itching / Pruritus Last Admin: 12/17/16 09:53 Dose: 25 mg Docusate Sodium (Colace) 100 mg PO BID [facility] Last Admin: 01/03/17 17:49 Dose: 100 mg Epoetin Tha (Procrit) 20,000 unit IV [facility] [place] Last Admin: 01/01/17 14:42 Dose: Not Given Ergocalciferol (Drisdol 50,000 Intl Units Cap) 1 cap PO WED [facility] Last Admin: 01/01/17 09:48 Dose: 1 cap Fluconazole (Diflucan) 100 mg PO DAILY [facility] Last Admin: 01/03/17 09:46 Dose: 100 mg Gabapentin (Neurontin) 300 mg PO TID [facility] Last Admin: 01/03/17 17:44 Dose: 300 mg Guaifenesin/Dextromethorphan (Robitussin Dm) 10 ml PO Q4 PRN PRN Reason: Cough Last Admin: 01/03/17 22:19 Dose: 10 ml Hydrocortisone (Anusol-Hc) 1 applic [place] BID PRN PRN Reason: Inflammation Hydromorphone HCl (Dilaudid) 1 mg IVP Q4H PRN PRN Reason: Pain, severe (8-10) Last Admin: 01/03/17 22:27 Dose: 1 mg Tigecycline 25 mg/ Sodium (Chloride) 100 mls @ 100 mls/hr IVPB Q12 [facility] Last Admin: 01/03/17 10:58 Dose: 100 mls/hr Sodium Chloride (Sodium Chloride 0.45%) 500 mls @ 10 mls/hr IV .Q24H [facility] Last Admin: 01/03/17 15:46 Dose: 10 mls/hr Daptomycin 650 mg/ Sodium (Chloride) 100 mls @ 100 mls/hr IVPB [facility] [place] Stop: 01/15/17 09:59 Last Admin: 01/01/17 13:52 Dose: 100 mls/hr Ceftazidime/Avibactam 0.94 gm/ (Sodium Chloride) 100 mls @ 50 mls/hr IV QOTHERDAY@2200 [facility] Last Admin: 01/02/17 22:48 Dose: 50 mls/hr Gentamicin Sulfate/Sodium Chloride (Gentamicin 100mg/100ml Ns) 100 mg in 100 mls @ 100 mls/hr IVPB [facility] [place] Levalbuterol HCl (Xopenex) 0.63 mg INH RQ8 [facility] Last Admin: 08/25/17 23:28 Dose: 0.63 mg Nystatin (Nystop Topical Powder) 1 applic TOP BID [facility] Last Admin: 01/03/17 17:45 Dose: 1 applic Ondansetron HCl (Zofran Inj) 4 mg IVP Q6 PRN PRN Reason: Nausea/Vomiting Last Admin: 09/19/16 10:26 Dose: 4 mg Pantoprazole Sodium (Protonix Ec Tab) 40 mg PO DAILY [facility] Last Admin: 01/03/17 09:49 Dose: 40 mg Repaglinide (Prandin) 0.5 mg PO TIDAC [facility] Last Admin: 01/03/17 17:48 Dose: 0.5 mg Sennosides (Senokot Tab) 25.8 mg PO HS [facility] Last Admin: 01/03/17 22:18 Dose: 25.8 mg Sevelamer HCl (Renagel) 1,600 mg PO TIDWM [facility] Last Admin: 01/03/17 17:45 Dose: 1,600 mg Topiramate (Topamax) 50 mg PO BID [facility] Last Admin: 01/03/17 17:46 Dose: 50 mg Vitamin B Complex/Vit C/Folic Acid (Nephro-Ajay) 1 tab PO DAILY [facility] Last Admin: 01/03/17 09:49 Dose: 1 tab - Labs Labs: 12/28/16 08:20 12/30/16 20:17 PT 15.3 Seconds (9.8-13.1) H 12/02/16 13:05 INR 1.4 (0.9-1.2) H 12/02/16 13:05 APTT 37.0 Seconds (25.6-37.1) 12/02/16 13:05 Assessment and Plan (1) Diabetes Status: Chronic (2) ESRD (end stage renal disease) Status: Chronic (3) Cellulitis of leg Status: Chronic (4) Hyperlipidemia Status: Chronic (5) Back pain Status: Acute (6) Bacteremia due to Gram-negative bacteria Status: Acute (7) Diabetes mellitus type 2 with peripheral artery disease Status: Chronic (8) PVD (peripheral vascular disease) Status: Chronic (9) Osteomyelitis of right leg Status: Acute
[2017-01-04] MEDS: TIGECYCLINE IVPB SCH ×3 (00:33→21:54)
[2017-01-04] MEDS: SODIUM CHLORIDE 0.9% IVPB SCH ×3 (00:33→21:54)
--- NOTE | 2017-01-04 00:40 | PN ---
DATE: 01/03/2017 ENDOSCOPY FOLLOWUP NOTE LOCATION: Room 661 SUBJECTIVE: This is a 46 year old female with recent uncontrolled type 2 diabetes, now with improved glycemic profile with the initiation of a low dose oral hypoglycemic drug therapy as given. Her latest glucose levels today have ranged from 124 to 168 mg/dL. Her latest chemistries are pending at this time. So for now, we will continue the low dose oral hypoglycemic drug therapy as given with Prandin given as 0.5 mg p.o. t.i.d. before meals as ordered. We will titrate incrementally as indicated to optimize metabolic control. We will follow and advise accordingly. She has ongoing IV antibiotic management for underlying right osteomyelitis in the residual stump of the right below knee amputation incisional site as noted. We will obtain serial chemistries and supplement accordingly as needed. Irene Ambrose MD
[2017-01-04] MEDS: Levalbuterol 0.63 MG/3 ML Inhal Soln UD INH SCH ×3 (07:56→23:05)
[2017-01-04] MEDS: Multivitamin Vitamin B Complex (Nephro-Vite) Tab PO SCH (09:01)
[2017-01-04] MEDS: Pantoprazole 40 mg EC Tab PO SCH (09:01)
[2017-01-04] MEDS: Santyl Collagenase OINTMENT TOP SCH (09:02)
[2017-01-04] MEDS ORDERED: Epoetin Alfa 20000 UNIT/ML Inj SC ONE (17:23)
--- NOTE | 2017-01-04 18:12 | CP.PCM.PN ---
Subjective - Date & Time of Evaluation Date of Evaluation: 01/04/17 Time of Evaluation: 18:03 - Subjective Subjective: Patient is having hemodialysis now because it was not done yesterday... Four liters of fluid are being removed. The blood work ordered for yesterday was not done, so I asked the nurse to draw the blood work ordered. Patient is comfortable with no pain or fevers. Phantom limb pain in [facility] is less severe and less frequent than before. Patient continues on 4 iv antibiotics and po fluconazole for right BK infection. Wound vac in place and will be changed on 01/06. Right patella needs dressing today. DM - controlled on Prandin. Coagulopathy controlled on Elizuis and ASA. Seizure disorder controlled on Topamax. Still with slight cough. Objective - Vital Signs/Intake and Output Vital Signs (last 24 hours): Temp Pulse Resp BP Pulse Ox 98.3 F 111 H 19 152/40 H 95 01/04/17 16:24 01/04/17 16:24 01/04/17 16:24 01/04/17 16:24 01/04/17 16:24 - Medications Medications: Current Medications Acetaminophen (Tylenol 325mg Tab) 650 mg PO Q4 PRN PRN Reason: Fever >100.4 F Last Admin: 12/26/16 19:40 Dose: 650 mg Acetaminophen (Tylenol 325mg Tab) 650 mg PO Q4 PRN PRN Reason: Pain, moderate (4-7) Last Admin: 12/26/16 05:14 Dose: 650 mg Apixaban (Eliquis) 5 mg PO BID [facility] PRN Reason: Protocol Last Admin: 01/04/17 09:00 Dose: 5 mg Aspirin (Ecotrin) 81 mg PO DAILY [facility] Last Admin: 01/04/17 09:00 Dose: 81 mg Atorvastatin Calcium (Lipitor) 40 mg PO DAILY [facility] Last Admin: 01/04/17 09:02 Dose: 40 mg Benzonatate (Tessalon Perles) 200 mg PO TID PRN PRN Reason: Cough Last Admin: 12/28/16 16:49 Dose: 200 mg Calcium Carbonate (Oscal) 500 mg PO BIDWM [facility] Last Admin: 01/04/17 09:01 Dose: 500 mg Cinacalcet (Sensipar) 30 mg PO DAILY [facility] Last Admin: 01/04/17 13:22 Dose: 30 mg Collagenase (Santyl) 1 applic TOP DAILY [facility] Last Admin: 01/04/17 09:02 Dose: 1 applic Diphenhydramine HCl (Benadryl) 25 mg PO Q6 PRN PRN Reason: Itching / Pruritus Last Admin: 12/17/16 09:53 Dose: 25 mg Docusate Sodium (Colace) 100 mg PO BID [facility] Last Admin: 01/04/17 09:02 Dose: 100 mg Epoetin Tha (Procrit) 20,000 unit IV [facility] [place] Last Admin: 01/01/17 14:42 Dose: Not Given Ergocalciferol (Drisdol 50,000 Intl Units Cap) 1 cap PO WED [facility] Last Admin: 01/01/17 09:48 Dose: 1 cap Fluconazole (Diflucan) 100 mg PO DAILY [facility] Last Admin: 01/04/17 09:00 Dose: 100 mg Gabapentin (Neurontin) 300 mg PO TID [facility] Last Admin: 01/04/17 13:22 Dose: 300 mg Guaifenesin/Dextromethorphan (Robitussin Dm) 10 ml PO Q4 PRN PRN Reason: Cough Last Admin: 01/03/17 22:19 Dose: 10 ml Hydrocortisone (Anusol-Hc) 1 applic [place] BID PRN PRN Reason: Inflammation Hydromorphone HCl (Dilaudid) 1 mg IVP Q4H PRN PRN Reason: Pain, severe (8-10) Last Admin: 01/04/17 15:48 Dose: 1 mg Tigecycline 25 mg/ Sodium (Chloride) 100 mls @ 100 mls/hr IVPB Q12 [facility] Last Admin: 01/04/17 10:49 Dose: 100 mls/hr Sodium Chloride (Sodium Chloride 0.45%) 500 mls @ 10 mls/hr IV .Q24H [facility] Last Admin: 01/04/17 15:52 Dose: 10 mls/hr Daptomycin 650 mg/ Sodium (Chloride) 100 mls @ 100 mls/hr IVPB [facility] [place] Stop: 01/15/17 09:59 Last Admin: 01/01/17 13:52 Dose: 100 mls/hr Ceftazidime/Avibactam 0.94 gm/ (Sodium Chloride) 100 mls @ 50 mls/hr IV QOTHERDAY@2200 [facility] Last Admin: 01/02/17 22:48 Dose: 50 mls/hr Gentamicin Sulfate/Sodium Chloride (Gentamicin 100mg/100ml Ns) 100 mg in 100 mls @ 100 mls/hr IVPB MWF [facility] Levalbuterol HCl (Xopenex) 0.63 mg INH RQ8 [facility] Last Admin: 01/04/17 15:21 Dose: 0.63 mg Nystatin (Nystop Topical Powder) 1 applic TOP BID [facility] Last Admin: 01/04/17 09:01 Dose: 1 applic Ondansetron HCl (Zofran Inj) 4 mg IVP Q6 PRN PRN Reason: Nausea/Vomiting Last Admin: 09/19/16 10:26 Dose: 4 mg Pantoprazole Sodium (Protonix Ec Tab) 40 mg PO DAILY [facility] Last Admin: 01/04/17 09:01 Dose: 40 mg Repaglinide (Prandin) 0.5 mg PO TIDAC [facility] Last Admin: 01/04/17 13:22 Dose: 0.5 mg Sennosides (Senokot Tab) 25.8 mg PO HS [facility] Last Admin: 01/03/17 22:18 Dose: 25.8 mg Sevelamer HCl (Renagel) 1,600 mg PO TIDWM [facility] Last Admin: 01/04/17 13:22 Dose: 1,600 mg Topiramate (Topamax) 50 mg PO BID [facility] Last Admin: 01/04/17 09:02 Dose: 50 mg Vitamin B Complex/Vit C/Folic Acid (Nephro-Ajay) 1 tab PO DAILY [facility] Last Admin: 01/04/17 09:01 Dose: 1 tab - Labs Labs: 12/28/16 08:20 12/30/16 20:17 PT 15.3 Seconds (9.8-13.1) H 12/02/16 13:05 INR 1.4 (0.9-1.2) H 12/02/16 13:05 APTT 37.0 Seconds (25.6-37.1) 12/02/16 13:05 - Constitutional Appears: No Acute Distress - Head Exam Head Exam: NORMAL INSPECTION - Eye Exam Eye Exam: Normal appearance - ENT Exam ENT Exam: Mucous Membranes Moist - Neck Exam Neck Exam: Normal Inspection Additional comments: R subclavian Permacath intact and working well. - Respiratory Exam Respiratory Exam: NORMAL BREATHING PATTERN Additional comments: Coarse breath sounds. - Cardiovascular Exam Cardiovascular Exam: REGULAR RHYTHM, +S1, +S2 - GI/Abdominal Exam GI & Abdominal Exam: Soft - Rectal Exam Rectal Exam: absent: NORMAL INSPECTION - Extremities Exam Additional comments: Dressings and wound vac intact right residual limb. L femoral vein PICC line intact. - Back Exam Back Exam: NORMAL INSPECTION - Neurological Exam Neurological Exam: Alert, CN II-XII Intact, Oriented x3 - Psychiatric Exam Psychiatric exam: Normal Affect, Normal Mood - Skin Skin Exam: Dry, Normal Color, Warm Assessment and Plan (1) Status post below knee amputation of right lower extremity Assessment & Plan: Making progress. Status: Acute (2) ESRD (end stage renal disease) on dialysis Assessment & Plan: stable Status: Chronic (3) DM type 2 (diabetes mellitus, type 2) Assessment & Plan: controlled. Status: Chronic (4) Coagulopathy Assessment & Plan: controlled. Status: Chronic (5) Peripheral arterial occlusive disease Status: Chronic
--- NOTE | 2017-01-04 19:42 | PN ---
DATE: 01/04/2017 ENDOSCOPIC FOLLOWUP NOTE LOCATION: Room 661 SUBJECTIVE: This is a 46-year-old female with recent uncontrolled type 2 insulin-requiring diabetes, now being followed closely for metabolic management. She has already been taken off all basal insulin therapy at this time with improved glycemic profile as noted. Her glucose levels have ranged from 68-138 mg/dL. Her latest chemistry showed a BUN of 38, sodium 143, potassium 4.5, chloride 105, CO2 25, glucose 77, and creatinine 4.7. So at this time, we will continue the low-dose oral hypoglycemic therapy as given with Prandin to be given at 0.5 mg p.o. t.i.d. before meals as ordered. We will titrate incrementally as indicated to optimize metabolic control. We will follow and advise accordingly. Irene Ambrose MD
[2017-01-04 19:50] LABS: BASO % 0.7 % (0.0-2.0); EOS # 0.4 K/uL (0.0-0.7); EOS % 6.1 % (0.0-4.0); HEMATOCRIT 33.9 % (34.0-47.0); LYMPH # 0.9 K/uL (1.0-4.3); LYMPH % 14.1 % (20.0-40.0); MEAN CORPUSCULAR HEMOGLOBIN 29.7 pg (27.0-31.0); MEAN CORPUSCULAR HGB CONC 30.7 g/dL (33.0-37.0); MEAN PLATELET VOLUME 9.2 fl (7.2-11.7); MONO # 0.4 K/uL (0.0-0.8); MONO % 5.5 % (0.0-10.0); NEUT # 4.8 K/uL (1.8-7.0); NEUT % 73.6 % (50.0-75.0); NRBC % 0.1 % (0.0-0.0); RED CELL DISTRIBUTION WIDTH 20.6 % (11.5-14.5); WHITE BLOOD COUNT 6.5 K/uL (4.8-10.8)
[2017-01-04 19:54] LABS: MEAN CELL VOLUME 96.5 fl (81.0-99.0)
[2017-01-04] MEDS: Gentamicin 100mg/100ml NS 100 MG/100 ML BAG IVPB SCH (19:54)
[2017-01-04 19:59] LABS: ALB/GLOB RATIO 0.8 (1.0-2.1); BILIRUBIN,TOTAL 0.5 mg/dl (0.2-1.3); CALCIUM 8.8 mg/dL (8.4-10.2); POTASSIUM 5.1 MMOL/L (3.6-5.0); TOTAL PROTEIN 7.7 G/DL (6.3-8.2)
--- NOTE | 2017-01-04 20:57 | CP.PCM.PN ---
Subjective - Date & Time of Evaluation Date of Evaluation: 01/04/17 Time of Evaluation: 19:00 - Subjective Subjective: She didn't receive hemodialysis yesterday and is getting her H.D. today instead. Her lab work shows high BUN, Creatinine and mildly high K. She is relatively stable. She has no seizures and is receiving Antibiotics for her Right BKA wound. Objective - Vital Signs/Intake and Output Vital Signs (last 24 hours): Temp Pulse Resp BP Pulse Ox 98.3 F 111 H 19 152/40 H 95 01/04/17 16:24 01/04/17 16:24 01/04/17 16:24 01/04/17 16:24 01/04/17 16:24 - Medications Medications: Current Medications Acetaminophen (Tylenol 325mg Tab) 650 mg PO Q4 PRN PRN Reason: Fever >100.4 F Last Admin: 12/26/16 19:40 Dose: 650 mg Acetaminophen (Tylenol 325mg Tab) 650 mg PO Q4 PRN PRN Reason: Pain, moderate (4-7) Last Admin: 12/26/16 05:14 Dose: 650 mg Apixaban (Eliquis) 5 mg PO BID [facility] PRN Reason: Protocol Last Admin: 01/04/17 18:11 Dose: Not Given Aspirin (Ecotrin) 81 mg PO DAILY [facility] Last Admin: 01/04/17 09:00 Dose: 81 mg Atorvastatin Calcium (Lipitor) 40 mg PO DAILY [facility] Last Admin: 01/04/17 09:02 Dose: 40 mg Calcium Carbonate (Oscal) 500 mg PO BIDWM [facility] Last Admin: 01/04/17 18:13 Dose: Not Given Cinacalcet (Sensipar) 30 mg PO DAILY [facility] Last Admin: 01/04/17 13:22 Dose: 30 mg Collagenase (Santyl) 1 applic TOP DAILY [facility] Last Admin: 01/04/17 09:02 Dose: 1 applic Diphenhydramine HCl (Benadryl) 25 mg PO Q6 PRN PRN Reason: Itching / Pruritus Last Admin: 12/17/16 09:53 Dose: 25 mg Docusate Sodium (Colace) 100 mg PO BID [facility] Last Admin: 01/04/17 18:11 Dose: Not Given Epoetin Tha (Procrit) 20,000 unit IV MWF [facility] Last Admin: 01/01/17 14:42 Dose: Not Given Ergocalciferol (Drisdol 50,000 Intl Units Cap) 1 cap PO WED [facility] Last Admin: 01/01/17 09:48 Dose: 1 cap Fluconazole (Diflucan) 100 mg PO DAILY [facility] Last Admin: 01/04/17 09:00 Dose: 100 mg Gabapentin (Neurontin) 300 mg PO TID [facility] Last Admin: 01/04/17 18:11 Dose: Not Given Guaifenesin/Dextromethorphan (Robitussin Dm) 10 ml PO Q4 PRN PRN Reason: Cough Last Admin: 01/03/17 22:19 Dose: 10 ml Hydrocortisone (Anusol-Hc) 1 applic [place] BID PRN PRN Reason: Inflammation Hydromorphone HCl (Dilaudid) 1 mg IVP Q4H PRN PRN Reason: Pain, severe (8-10) Last Admin: 01/04/17 20:09 Dose: 1 mg Tigecycline 25 mg/ Sodium (Chloride) 100 mls @ 100 mls/hr IVPB Q12 [facility] Last Admin: 01/04/17 10:49 Dose: 100 mls/hr Sodium Chloride (Sodium Chloride 0.45%) 500 mls @ 10 mls/hr IV .Q24H [facility] Last Admin: 01/04/17 15:52 Dose: 10 mls/hr Daptomycin 650 mg/ Sodium (Chloride) 100 mls @ 100 mls/hr IVPB [facility] [place] Stop: 01/15/17 09:59 Last Admin: 01/01/17 13:52 Dose: 100 mls/hr Ceftazidime/Avibactam 0.94 gm/ (Sodium Chloride) 100 mls @ 50 mls/hr IV QOTHERDAY@2200 [facility] Last Admin: 01/02/17 22:48 Dose: 50 mls/hr Gentamicin Sulfate/Sodium Chloride (Gentamicin 100mg/100ml Ns) 100 mg in 100 mls @ 100 mls/hr IVPB [facility] [place] Last Admin: 01/04/17 19:54 Dose: 100 mls/hr Levalbuterol HCl (Xopenex) 0.63 mg INH RQ8 [facility] Last Admin: 01/04/17 15:21 Dose: 0.63 mg Nystatin (Nystop Topical Powder) 1 applic TOP BID [facility] Last Admin: 01/04/17 18:11 Dose: Not Given Ondansetron HCl (Zofran Inj) 4 mg IVP Q6 PRN PRN Reason: Nausea/Vomiting Last Admin: 09/19/16 10:26 Dose: 4 mg Pantoprazole Sodium (Protonix Ec Tab) 40 mg PO DAILY [facility] Last Admin: 01/04/17 09:01 Dose: 40 mg Repaglinide (Prandin) 0.5 mg PO TIDAC [facility] Last Admin: 01/04/17 18:13 Dose: Not Given Sennosides (Senokot Tab) 25.8 mg PO HS [facility] Last Admin: 01/03/17 22:18 Dose: 25.8 mg Sevelamer HCl (Renagel) 1,600 mg PO TIDWM [facility] Last Admin: 01/04/17 18:14 Dose: Not Given Topiramate (Topamax) 50 mg PO BID [facility] Last Admin: 01/04/17 18:14 Dose: Not Given Vitamin B Complex/Vit C/Folic Acid (Nephro-Ajay) 1 tab PO DAILY [facility] Last Admin: 01/04/17 09:01 Dose: 1 tab - Labs Labs: 01/04/17 16:00 01/04/17 16:00 PT 15.3 Seconds (9.8-13.1) H 12/02/16 13:05 INR 1.4 (0.9-1.2) H 12/02/16 13:05 APTT 37.0 Seconds (25.6-37.1) 12/02/16 13:05 Assessment and Plan (1) Diabetes Status: Chronic (2) ESRD (end stage renal disease) Status: Chronic (3) Cellulitis of leg Status: Chronic (4) Hyperlipidemia Status: Chronic (5) Back pain Status: Acute (6) Bacteremia due to Gram-negative bacteria Status: Acute (7) Diabetes mellitus type 2 with peripheral artery disease Status: Chronic (8) PVD (peripheral vascular disease) Status: Chronic (9) Osteomyelitis of right leg Status: Acute
[2017-01-05] MEDS: Levalbuterol 0.63 MG/3 ML Inhal Soln UD INH SCH ×3 (08:07→23:34)
[2017-01-05] MEDS: Santyl Collagenase OINTMENT TOP SCH (08:39)
[2017-01-05] MEDS: TIGECYCLINE IVPB SCH ×2 (08:39→21:40)
[2017-01-05] MEDS: SODIUM CHLORIDE 0.9% IVPB SCH ×2 (08:39→21:40)
[2017-01-05] MEDS: Multivitamin Vitamin B Complex (Nephro-Vite) Tab PO SCH (08:40)
[2017-01-05] MEDS: Pantoprazole 40 mg EC Tab PO SCH (08:42)
--- NOTE | 2017-01-05 09:25 | CP.PCM.PN ---
Subjective - Date & Time of Evaluation Date of Evaluation: 01/05/17 Time of Evaluation: 18:53 - Subjective Subjective: Patient had elevated blood pressure at start of dailysis yesterday (to 200 systolic), but it came down as dialysis proceeded. She was tachycardic to 115/ min earlier today, but the pulse is now around 105.. She has no chest pain or dyspnea and no fevers. Will monitor and if the problem persists will get new ECG and ask Dr. Richard Shepard to see her again. Patient was out of bed in wheelchair most of today. Some leg pain earlier and needed medication for this. Gentamicin trough level was 3.3. We are not sure what the trough level should be. Some in lab say 0-2, this report says [address] Lemon was informed and did not change the dosing of gentamicin. For wound vac change tomorrow. No new problems. All current meds renewed. Objective - Vital Signs/Intake and Output Vital Signs (last 24 hours): Temp Pulse Resp BP Pulse Ox 98.2 F 115 H 18 137/53 L 98 01/05/17 08:35 01/05/17 08:35 01/05/17 08:35 01/05/17 08:35 01/05/17 08:35 - Medications Medications: Current Medications Acetaminophen (Tylenol 325mg Tab) 650 mg PO Q4 PRN PRN Reason: Fever >100.4 F Last Admin: 12/26/16 19:40 Dose: 650 mg Acetaminophen (Tylenol 325mg Tab) 650 mg PO Q4 PRN PRN Reason: Pain, moderate (4-7) Last Admin: 12/26/16 05:14 Dose: 650 mg Apixaban (Eliquis) 5 mg PO BID [facility] PRN Reason: Protocol Last Admin: 01/05/17 08:41 Dose: 5 mg Aspirin (Ecotrin) 81 mg PO DAILY [facility] Last Admin: 01/05/17 08:43 Dose: 81 mg Atorvastatin Calcium (Lipitor) 40 mg PO DAILY [facility] Last Admin: 01/05/17 08:44 Dose: 40 mg Calcium Carbonate (Oscal) 500 mg PO BIDWM [facility] Last Admin: 01/05/17 08:42 Dose: 500 mg Cinacalcet (Sensipar) 30 mg PO DAILY [facility] Last Admin: 01/05/17 08:41 Dose: 30 mg Collagenase (Santyl) 1 applic TOP DAILY [facility] Last Admin: 01/05/17 08:39 Dose: 1 applic Diphenhydramine HCl (Benadryl) 25 mg PO Q6 PRN PRN Reason: Itching / Pruritus Last Admin: 12/17/16 09:53 Dose: 25 mg Docusate Sodium (Colace) 100 mg PO BID [facility] Last Admin: 01/05/17 08:41 Dose: 100 mg Epoetin Tha (Procrit) 20,000 [place] [facility] [place] Last Admin: 01/01/17 14:42 Dose: Not Given Ergocalciferol (Drisdol 50,000 Intl Units Cap) 1 cap PO WED [facility] Last Admin: 01/01/17 09:48 Dose: 1 cap Fluconazole (Diflucan) 100 mg PO DAILY [facility] Last Admin: 01/04/17 09:00 Dose: 100 mg Gabapentin (Neurontin) 300 mg PO TID [facility] Last Admin: 01/05/17 08:42 Dose: 300 mg Guaifenesin/Dextromethorphan (Robitussin Dm) 10 ml PO Q4 PRN PRN Reason: Cough Last Admin: 01/03/17 22:19 Dose: 10 ml Hydrocortisone (Anusol-Hc) 1 applic [place] BID PRN PRN Reason: Inflammation Hydromorphone HCl (Dilaudid) 1 mg IVP Q4H PRN PRN Reason: Pain, severe (8-10) Last Admin: 01/04/17 20:09 Dose: 1 mg Tigecycline 25 mg/ Sodium (Chloride) 100 mls @ 100 mls/hr IVPB Q12 [facility] Last Admin: 01/05/17 08:39 Dose: 100 mls/hr Sodium Chloride (Sodium Chloride 0.45%) 500 mls @ 10 mls/hr IV .Q24H [facility] Last Admin: 01/04/17 15:52 Dose: 10 mls/hr Daptomycin 650 mg/ Sodium (Chloride) 100 mls @ 100 mls/hr [place] [facility] [place] Stop: 01/15/17 09:59 Last Admin: 01/04/17 21:00 Dose: 100 mls/hr Ceftazidime/Avibactam 0.94 gm/ (Sodium Chloride) 100 mls @ 50 mls/hr IV QOTHERDAY@2200 [facility] Last Admin: 01/04/17 22:59 Dose: 50 mls/hr Gentamicin Sulfate/Sodium Chloride (Gentamicin 100mg/100ml Ns) 100 mg in 100 mls @ 100 mls/hr IVPB MWF [facility] Last Admin: 01/04/17 19:54 Dose: 100 mls/hr Levalbuterol HCl (Xopenex) 0.63 mg INH RQ8 [facility] Last Admin: 01/05/17 08:07 Dose: 0.63 mg Nystatin (Nystop Topical Powder) 1 applic TOP BID [facility] Last Admin: 01/05/17 08:43 Dose: 1 applic Ondansetron HCl (Zofran Inj) 4 mg IVP Q6 PRN PRN Reason: Nausea/Vomiting Last Admin: 09/19/16 10:26 Dose: 4 mg Pantoprazole Sodium (Protonix Ec Tab) 40 mg PO DAILY [facility] Last Admin: 01/05/17 08:42 Dose: 40 mg Repaglinide (Prandin) 0.5 mg PO TIDAC [facility] Last Admin: 01/05/17 08:42 Dose: 0.5 mg Sennosides (Senokot Tab) 25.8 mg PO HS [facility] Last Admin: 01/04/17 22:31 Dose: Not Given Sevelamer HCl (Renagel) 1,600 mg PO TIDWM [facility] Last Admin: 01/05/17 08:40 Dose: 1,600 mg Topiramate (Topamax) 50 mg PO BID [facility] Last Admin: 01/05/17 08:41 Dose: 50 mg Vitamin B Complex/Vit C/Folic Acid (Nephro-Ajay) 1 tab PO DAILY [facility] Last Admin: 01/05/17 08:40 Dose: 1 tab - Labs Labs: 01/04/17 16:00 01/04/17 16:00 PT 15.3 Seconds (9.8-13.1) H 12/02/16 13:05 INR 1.4 (0.9-1.2) H 12/02/16 13:05 APTT 37.0 Seconds (25.6-37.1) 12/02/16 13:05 Assessment and Plan (1) Status post below knee amputation of right lower extremity Assessment & Plan: Making progress. Status: Acute (2) ESRD (end stage renal disease) on dialysis Status: Chronic (3) DM type 2 (diabetes mellitus, type 2) Status: Chronic (4) Coagulopathy Status: Chronic (5) Peripheral arterial occlusive disease Status: Chronic - Assessment and Plan (Free Text) Assessment: CLINICALLY STABLE. CONTINUE SAME TX/RX.
--- NOTE | 2017-01-05 17:02 | PN ---
ENDO FOLLOWUP NOTE LOCATION: Room 661. SUBJECTIVE: This is a 46-year-old female with recent uncontrolled type 2 diabetes, now being followed closely for metabolic management especially postoperatively as noted thereof. She also has severe underlying right stump osteomyelitis and is currently undergoing close followup and also receiving ongoing IV antibiotics as noted. Her latest glucose levels have ranged from 68 to 79 to 138 mg/dL. The latest chemistry shows a BUN of 72, sodium 142, potassium 5.1, chloride 105, CO2 of 22, glucose 79 and creatinine 7.3. So at this time, we will continue the low-dose oral hypoglycemic drug therapy as ordered with Prandin given as 0.5 mg p.o. t.i.d. before meals as ordered. We will titrate incrementally as indicated to optimize metabolic control. We will follow. Irene Ambrose MD
--- NOTE | 2017-01-05 22:50 | CP.PCM.PN ---
Subjective - Date & Time of Evaluation Date of Evaluation: 01/05/17 Time of Evaluation: 20:00 - Subjective Subjective: She had Sympathetic hyperactivity with tachycardia and high Systolic BP, then she normalized. There is no Seizures. Her blood sugar is controlled. There is pain in her Right stump of Rt BKA that was controlled. Her Gentamycin trough level is high. She is awake, alert, oriented and is out of bed to chair. Objective - Vital Signs/Intake and Output Vital Signs (last 24 hours): Temp Pulse Resp BP Pulse Ox 98.2 F 106 H 18 138/72 94 L 01/05/17 15:49 01/05/17 15:49 01/05/17 15:49 01/05/17 15:49 01/05/17 15:49 - Medications Medications: Current Medications Acetaminophen (Tylenol 325mg Tab) 650 mg PO Q4 PRN PRN Reason: Fever >100.4 F Last Admin: 12/26/16 19:40 Dose: 650 mg Acetaminophen (Tylenol 325mg Tab) 650 mg PO Q4 PRN PRN Reason: Pain, moderate (4-7) Last Admin: 12/26/16 05:14 Dose: 650 mg Apixaban (Eliquis) 5 mg PO BID [facility] PRN Reason: Protocol Last Admin: 01/05/17 16:16 Dose: 5 mg Aspirin (Ecotrin) 81 mg PO DAILY [facility] Last Admin: 01/05/17 08:43 Dose: 81 mg Atorvastatin Calcium (Lipitor) 40 mg PO DAILY [facility] Last Admin: 01/05/17 08:44 Dose: 40 mg Calcium Carbonate (Oscal) 500 mg PO BIDWM [facility] Last Admin: 01/05/17 16:16 Dose: 500 mg Cinacalcet (Sensipar) 30 mg PO DAILY [facility] Last Admin: 01/05/17 08:41 Dose: 30 mg Collagenase (Santyl) 1 applic TOP DAILY [facility] Last Admin: 01/05/17 08:39 Dose: 1 applic Diphenhydramine HCl (Benadryl) 25 mg PO Q6 PRN PRN Reason: Itching / Pruritus Last Admin: 12/17/16 09:53 Dose: 25 mg Docusate Sodium (Colace) 100 mg PO BID [facility] Last Admin: 01/05/17 16:16 Dose: 100 mg Epoetin Tha (Procrit) 20,000 unit IV MWF [facility] Last Admin: 01/01/17 14:42 Dose: Not Given Ergocalciferol (Drisdol 50,000 Intl Units Cap) 1 cap PO WED [facility] Last Admin: 01/01/17 09:48 Dose: 1 cap Fluconazole (Diflucan) 100 mg PO DAILY [facility] Last Admin: 01/05/17 11:59 Dose: 100 mg Gabapentin (Neurontin) 300 mg PO TID [facility] Last Admin: 01/05/17 16:15 Dose: 300 mg Guaifenesin/Dextromethorphan (Robitussin Dm) 10 ml PO Q4 PRN PRN Reason: Cough Last Admin: 01/03/17 22:19 Dose: 10 ml Hydrocortisone (Anusol-Hc) 1 applic [place] BID PRN PRN Reason: Inflammation Hydromorphone HCl (Dilaudid) 1 mg IVP Q4H PRN PRN Reason: Pain, severe (8-10) Last Admin: 01/05/17 21:51 Dose: 1 mg Tigecycline 25 mg/ Sodium (Chloride) 100 mls @ 100 mls/hr IVPB Q12 [facility] Last Admin: 01/05/17 21:40 Dose: 100 mls/hr Sodium Chloride (Sodium Chloride 0.45%) 500 mls @ 10 mls/hr IV .Q24H [facility] Last Admin: 01/05/17 16:16 Dose: Not Given Daptomycin 650 mg/ Sodium (Chloride) 100 mls @ 100 mls/hr [place]PB [facility] [place] Stop: 01/15/17 09:59 Last Admin: 01/04/17 21:00 Dose: 100 mls/hr Ceftazidime/Avibactam 0.94 gm/ (Sodium Chloride) 100 mls @ 50 mls/hr IV QOTHERDAY@2200 [facility] Last Admin: 01/04/17 22:59 Dose: 50 mls/hr Gentamicin Sulfate/Sodium Chloride (Gentamicin 100mg/100ml Ns) 100 mg in 100 mls @ 100 mls/hr IVPB [facility] [place] Last Admin: 01/04/17 19:54 Dose: 100 mls/hr Levalbuterol HCl (Xopenex) 0.63 mg INH RQ8 [facility] Last Admin: 01/05/17 15:31 Dose: 0.63 mg Nystatin (Nystop Topical Powder) 1 applic TOP BID [facility] Last Admin: 01/05/17 16:16 Dose: 1 applic Ondansetron HCl (Zofran Inj) 4 mg IVP Q6 PRN PRN Reason: Nausea/Vomiting Last Admin: 09/19/16 10:26 Dose: 4 mg Pantoprazole Sodium (Protonix Ec Tab) 40 mg PO DAILY [facility] Last Admin: 01/05/17 08:42 Dose: 40 mg Repaglinide (Prandin) 0.5 mg PO TIDAC [facility] Last Admin: 01/05/17 16:16 Dose: 0.5 mg Sennosides (Senokot Tab) 25.8 mg PO HS [facility] Last Admin: 01/05/17 21:40 Dose: 25.8 mg Sevelamer HCl (Renagel) 1,600 mg PO TIDWM [facility] Last Admin: 01/05/17 16:15 Dose: 1,600 mg Topiramate (Topamax) 50 mg PO BID [facility] Last Admin: 01/05/17 16:17 Dose: 50 mg Vitamin B Complex/Vit C/Folic Acid (Nephro-Ajay) 1 tab PO DAILY [facility] Last Admin: 01/05/17 08:40 Dose: 1 tab - Labs Labs: 01/04/17 16:00 01/04/17 16:00 PT 15.3 Seconds (9.8-13.1) H 12/02/16 13:05 INR 1.4 (0.9-1.2) H 12/02/16 13:05 APTT 37.0 Seconds (25.6-37.1) 12/02/16 13:05 Assessment and Plan (1) Diabetes Status: Chronic (2) ESRD (end stage renal disease) Status: Chronic (3) Cellulitis of leg Status: Chronic (4) Hyperlipidemia Status: Chronic (5) Back pain Status: Acute (6) Bacteremia due to Gram-negative bacteria Status: Acute (7) Diabetes mellitus type 2 with peripheral artery disease Status: Chronic (8) PVD (peripheral vascular disease) Status: Chronic (9) Osteomyelitis of right leg Status: Acute
[2017-01-06] MEDS: Levalbuterol 0.63 MG/3 ML Inhal Soln UD INH SCH (07:20)
[2017-01-06] MEDS: Pantoprazole 40 mg EC Tab PO SCH (08:47)
[2017-01-06] MEDS: Multivitamin Vitamin B Complex (Nephro-Vite) Tab PO SCH (08:49)
[2017-01-06] MEDS: Gentamicin 100mg/100ml NS 100 MG/100 ML BAG IVPB SCH ×2 (09:04→12:03)
[2017-01-06] MEDS: Epoetin Alfa 20000 UNIT/ML Inj IV SCH (10:12)
[2017-01-06] MEDS ORDERED: Levalbuterol 0.63 MG/3 ML Inhal Soln UD INH PRN (10:59)
--- NOTE | 2017-01-06 11:15 | CP.PCM.PN ---
Subjective - Date & Time of Evaluation Date of Evaluation: 01/06/17 Time of Evaluation: 11:10 - Subjective Subjective: Patient having hemodialysis at this time. Yesterday BP was as high as 200 systolic with pulse of 115. Now BP is 143/70 and pulse is 105. She has no chest pain or dyspnea. No fevers. Just feels a little "gassy" with mild abdominal cramping. Simeticone ordered as a prn. Slight nose bleed this morning after blowing/wiping. OK now. To have wound vac change and right BK wound and patella checked by Dr. Doran today. Still with slight cough - no sputum - feels as if congested with too much fluid. She would like to make Xopenex prn if possible. Text message left with Dr. Flores. I spoke with Dr. Richard Shepard. He advised that we start metoprolol tartrate 25mg q12h and monitor pulse/bp. Good labs. DM controlled. Dr. Lemon is OK with gentamicin trough of 3. Objective - Vital Signs/Intake and Output Vital Signs (last 24 hours): Temp Pulse Resp BP Pulse Ox 98 F 104 H 20 186/69 H 97 01/06/17 07:42 01/06/17 07:42 01/06/17 07:42 01/06/17 07:42 01/06/17 07:42 - Medications Medications: Current Medications Acetaminophen (Tylenol 325mg Tab) 650 mg PO Q4 PRN PRN Reason: Fever >100.4 F Last Admin: 12/26/16 19:40 Dose: 650 mg Acetaminophen (Tylenol 325mg Tab) 650 mg PO Q4 PRN PRN Reason: Pain, moderate (4-7) Last Admin: 12/26/16 05:14 Dose: 650 mg Apixaban (Eliquis) 5 mg PO BID [facility] PRN Reason: Protocol Last Admin: 01/06/17 08:48 Dose: 5 mg Aspirin (Ecotrin) 81 mg PO DAILY [facility] Last Admin: 01/06/17 08:48 Dose: 81 mg Atorvastatin Calcium (Lipitor) 40 mg PO DAILY [facility] Last Admin: 01/06/17 08:50 Dose: 40 mg Calcium Carbonate (Oscal) 500 mg PO BIDWM [facility] Last Admin: 01/06/17 08:49 Dose: 500 mg Cinacalcet (Sensipar) 30 mg PO DAILY [facility] Last Admin: 01/06/17 08:48 Dose: 30 mg Collagenase (Santyl) 1 applic TOP DAILY [facility] Last Admin: 01/05/17 08:39 Dose: 1 applic Diphenhydramine HCl (Benadryl) 25 mg PO Q6 PRN PRN Reason: Itching / Pruritus Last Admin: 12/17/16 09:53 Dose: 25 mg Docusate Sodium (Colace) 100 mg PO BID [facility] Last Admin: 01/06/17 08:49 Dose: 100 mg Epoetin Tha (Procrit) 20,000 unit IV [facility] Last Admin: 01/01/17 14:42 Dose: Not Given Ergocalciferol (Drisdol 50,000 Intl Units Cap) 1 cap PO WED [facility] Last Admin: 01/01/17 09:48 Dose: 1 cap Fluconazole (Diflucan) 100 mg PO DAILY [facility] Last Admin: 01/06/17 08:49 Dose: 100 mg Gabapentin (Neurontin) 300 mg PO TID [facility] Last Admin: 01/06/17 08:48 Dose: 300 mg Guaifenesin/Dextromethorphan (Robitussin Dm) 10 ml PO Q4 PRN PRN Reason: Cough Last Admin: 01/03/17 22:19 Dose: 10 ml Hydrocortisone (Anusol-Hc) 1 applic [place] BID PRN PRN Reason: Inflammation Hydromorphone HCl (Dilaudid) 1 mg IVP Q4H PRN PRN Reason: Pain, severe (8-10) Last Admin: 01/06/17 08:44 Dose: 1 mg Tigecycline 25 mg/ Sodium (Chloride) 100 mls @ 100 mls/hr IVPB Q12 [facility] Last Admin: 01/05/17 21:40 Dose: 100 mls/hr Sodium Chloride (Sodium Chloride 0.45%) 500 mls @ 10 mls/hr IV .Q24H [facility] Last Admin: 01/06/17 06:05 Dose: 10 mls/hr Daptomycin 650 mg/ Sodium (Chloride) 100 mls @ 100 mls/hr IVPB [facility] Stop: 01/15/17 09:59 Last Admin: 01/04/17 21:00 Dose: 100 mls/hr Ceftazidime/Avibactam 0.94 gm/ (Sodium Chloride) 100 mls @ 50 mls/hr IV QOTHERDAY@2200 [facility] Last Admin: 01/04/17 22:59 Dose: 50 mls/hr Gentamicin Sulfate/Sodium Chloride (Gentamicin 100mg/100ml Ns) 100 mg in 100 mls @ 100 mls/hr IVPB MWF [facility] Last Admin: 01/04/17 19:54 Dose: 100 mls/hr Levalbuterol HCl (Xopenex) 0.63 mg INH RQ8 PRN PRN Reason: Shortness of Breath Metoprolol Tartrate (Lopressor) 25 mg PO Q12 [facility] Nystatin (Nystop Topical Powder) 1 applic TOP BID [facility] Last Admin: 01/06/17 08:53 Dose: 1 applic Ondansetron HCl (Zofran Inj) 4 mg IVP Q6 PRN PRN Reason: Nausea/Vomiting Last Admin: 09/19/16 10:26 Dose: 4 mg Pantoprazole Sodium (Protonix Ec Tab) 40 mg PO DAILY [facility] Last Admin: 01/06/17 08:47 Dose: 40 mg Repaglinide (Prandin) 0.5 mg PO TIDAC [facility] Last Admin: 01/06/17 08:47 Dose: 0.5 mg Sennosides (Senokot Tab) 25.8 mg PO HS [facility] Last Admin: 01/05/17 21:40 Dose: 25.8 mg Sevelamer HCl (Renagel) 1,600 mg PO TIDWM [facility] Last Admin: 01/06/17 08:48 Dose: 1,600 mg Simethicone (Mylicon Chew Tab) 80 mg PO Q4H PRN PRN Reason: flatulence or "gassy feeling:" Topiramate (Topamax) 50 mg PO BID [facility] Last Admin: 01/06/17 08:49 Dose: 50 mg Vitamin B Complex/Vit C/Folic Acid (Nephro-Ajay) 1 tab PO DAILY [facility] Last Admin: 01/06/17 08:49 Dose: 1 tab - Labs Labs: 01/04/17 16:00 01/04/17 16:00 PT 15.3 Seconds (9.8-13.1) H 12/02/16 13:05 INR 1.4 (0.9-1.2) H 12/02/16 13:05 APTT 37.0 Seconds (25.6-37.1) 12/02/16 13:05 - Constitutional Appears: No Acute Distress - Head Exam Head Exam: NORMAL INSPECTION - Eye Exam Eye Exam: Normal appearance - ENT Exam ENT Exam: Mucous Membranes Moist - Neck Exam Neck Exam: Normal Inspection Additional comments: R subclavian Permacath dressing changed today. - Respiratory Exam Respiratory Exam: NORMAL BREATHING PATTERN Additional comments: Some increased secretions in large airways. - Cardiovascular Exam Cardiovascular Exam: REGULAR RHYTHM, +S1, +S2 - GI/Abdominal Exam GI & Abdominal Exam: Soft - Extremities Exam Additional comments: RLE dressings in place. Wound vac on and without leak. Minimal drainage. L femoral vein PICC line intact. - Neurological Exam Neurological Exam: Alert, CN II-XII Intact, Oriented x3 - Psychiatric Exam Psychiatric exam: Normal Affect, Normal Mood - Skin Skin Exam: Normal Color, Warm Assessment and Plan (1) Status post below knee amputation of right lower extremity Assessment & Plan: Await re-evaluation of R BK and patellar wounds today. Continue 4 iv and 1 po antibiotic. Dressings, etc per Dr. Doran. Status: Acute (2) ESRD (end stage renal disease) on dialysis Assessment & Plan: stable Status: Chronic (3) DM type 2 (diabetes mellitus, type 2) Assessment & Plan: controlled, stable. Status: Chronic (4) Coagulopathy Assessment & Plan: No concern regarding epistaxis, which has resolved. Continue Eliquis and aspirin. Status: Chronic (5) Peripheral arterial occlusive disease Assessment & Plan: Will watch closely as metoprolol started. Status: Chronic
--- NOTE | 2017-01-06 11:34 | CP.PCM.PN ---
Subjective - Date & Time of Evaluation Date of Evaluation: 01/06/17 Time of Evaluation: 11:31 - Subjective Subjective: Patient awake and conscious Progress note has been noted by the primary care physician Patient is doing much better now Scheduled for hemodialysis shortly Objective - Vital Signs/Intake and Output Vital Signs (last 24 hours): Temp Pulse Resp BP Pulse Ox 98 F 104 H 20 186/69 H 97 01/06/17 07:42 01/06/17 07:42 01/06/17 07:42 01/06/17 07:42 01/06/17 07:42 - Medications Medications: Current Medications Acetaminophen (Tylenol 325mg Tab) 650 mg PO Q4 PRN PRN Reason: Fever >100.4 F Last Admin: 12/26/16 19:40 Dose: 650 mg Acetaminophen (Tylenol 325mg Tab) 650 mg PO Q4 PRN PRN Reason: Pain, moderate (4-7) Last Admin: 12/26/16 05:14 Dose: 650 mg Apixaban (Eliquis) 5 mg PO BID [facility] PRN Reason: Protocol Last Admin: 01/06/17 08:48 Dose: 5 mg Aspirin (Ecotrin) 81 mg PO DAILY [facility] Last Admin: 01/06/17 08:48 Dose: 81 mg Atorvastatin Calcium (Lipitor) 40 mg PO DAILY [facility] Last Admin: 01/06/17 08:50 Dose: 40 mg Calcium Carbonate (Oscal) 500 mg PO BIDWM [facility] Last Admin: 01/06/17 08:49 Dose: 500 mg Cinacalcet (Sensipar) 30 mg PO DAILY [facility] Last Admin: 01/06/17 08:48 Dose: 30 mg Collagenase (Santyl) 1 applic TOP DAILY [facility] Last Admin: 01/05/17 08:39 Dose: 1 applic Diphenhydramine HCl (Benadryl) 25 mg PO Q6 PRN PRN Reason: Itching / Pruritus Last Admin: 12/17/16 09:53 Dose: 25 mg Docusate Sodium (Colace) 100 mg PO BID [facility] Last Admin: 01/06/17 08:49 Dose: 100 mg Epoetin Tha (Procrit) 20,000 unit IV MWF [facility] Last Admin: 01/01/17 14:42 Dose: Not Given Ergocalciferol (Drisdol 50,000 Intl Units Cap) 1 cap PO WED [facility] Last Admin: 01/01/17 09:48 Dose: 1 cap Fluconazole (Diflucan) 100 mg PO DAILY [facility] Last Admin: 01/06/17 08:49 Dose: 100 mg Gabapentin (Neurontin) 300 mg PO TID [facility] Last Admin: 01/06/17 08:48 Dose: 300 mg Guaifenesin/Dextromethorphan (Robitussin Dm) 10 ml PO Q4 PRN PRN Reason: Cough Last Admin: 01/03/17 22:19 Dose: 10 ml Hydrocortisone (Anusol-Hc) 1 applic [place] BID PRN PRN Reason: Inflammation Hydromorphone HCl (Dilaudid) 1 mg IVP Q4H PRN PRN Reason: Pain, severe (8-10) Last Admin: 01/06/17 08:44 Dose: 1 mg Tigecycline 25 mg/ Sodium (Chloride) 100 mls @ 100 mls/hr IVPB Q12 [facility] Last Admin: 01/05/17 21:40 Dose: 100 mls/hr Sodium Chloride (Sodium Chloride 0.45%) 500 mls @ 10 mls/hr IV .Q24H [facility] Last Admin: 01/06/17 06:05 Dose: 10 mls/hr Daptomycin 650 mg/ Sodium (Chloride) 100 mls @ 100 mls/hr IVPB [facility] Stop: 01/15/17 09:59 Last Admin: 01/04/17 21:00 Dose: 100 mls/hr Ceftazidime/Avibactam 0.94 gm/ (Sodium Chloride) 100 mls @ 50 mls/hr IV QOTHERDAY@2200 [facility] Last Admin: 01/04/17 22:59 Dose: 50 mls/hr Gentamicin Sulfate/Sodium Chloride (Gentamicin 100mg/100ml Ns) 100 mg in 100 mls @ 100 mls/hr IVPB [facility] Last Admin: 01/04/17 19:54 Dose: 100 mls/hr Levalbuterol HCl (Xopenex) 0.63 mg INH RQ8 PRN PRN Reason: Shortness of Breath Metoprolol Tartrate (Lopressor) 25 mg PO Q12 [facility] Nystatin (Nystop Topical Powder) 1 applic TOP BID [facility] Last Admin: 01/06/17 08:53 Dose: 1 applic Ondansetron HCl (Zofran Inj) 4 mg IVP Q6 PRN PRN Reason: Nausea/Vomiting Last Admin: 09/19/16 10:26 Dose: 4 mg Pantoprazole Sodium (Protonix Ec Tab) 40 mg PO DAILY [facility] Last Admin: 01/06/17 08:47 Dose: 40 mg Repaglinide (Prandin) 0.5 mg PO TIDAC [facility] Last Admin: 01/06/17 08:47 Dose: 0.5 mg Sennosides (Senokot Tab) 25.8 mg PO HS [facility] Last Admin: 01/05/17 21:40 Dose: 25.8 mg Sevelamer HCl (Renagel) 1,600 mg PO TIDWM [facility] Last Admin: 01/06/17 08:48 Dose: 1,600 mg Simethicone (Mylicon Chew Tab) 80 mg PO Q4H PRN PRN Reason: flatulence or "gassy feeling:" Topiramate (Topamax) 50 mg PO BID [facility] Last Admin: 01/06/17 08:49 Dose: 50 mg Vitamin B Complex/Vit C/Folic Acid (Nephro-Ajay) 1 tab PO DAILY [facility] Last Admin: 01/06/17 08:49 Dose: 1 tab - Labs Labs: 01/04/17 16:00 01/04/17 16:00 PT 15.3 Seconds (9.8-13.1) H 12/02/16 13:05 INR 1.4 (0.9-1.2) H 12/02/16 13:05 APTT 37.0 Seconds (25.6-37.1) 12/02/16 13:05 - Constitutional Appears: No Acute Distress - ENT Exam ENT Exam: absent: Mucous Membranes Moist - Respiratory Exam Respiratory Exam: NORMAL BREATHING PATTERN. absent: Chest Wall Tenderness - Cardiovascular Exam Cardiovascular Exam: JVD. absent: Rubs - Extremities Exam Extremities Exam: absent: Calf Tenderness - Back Exam Back Exam: absent: CVA tenderness (L), CVA tenderness (R) - Neurological Exam Neurological Exam: Alert Assessment and Plan (1) ESRD (end stage renal disease) Assessment & Plan: Patient scheduled for hemodialysis shortly Order has been given No changes in the composition or for order Primary team noted 4 IV antibiotics and wound care among other things Also it was noted that liver enzyme slightly elevated we have to keep watching and repeat . And find out? Status: Chronic (2) Cellulitis of leg Status: Chronic
[2017-01-06] MEDS: SODIUM CHLORIDE 0.9% IVPB SCH ×2 (12:01→21:09)
[2017-01-06] MEDS: TIGECYCLINE IVPB SCH ×2 (12:01→21:09)
[2017-01-06] MEDS: Simethicone 80 mg Chewtab PO PRN (12:04)
--- NOTE | 2017-01-06 14:02 | PN ---
ENDO FOLLOWUP NOTE LOCATION: In room 661. SUBJECTIVE: This is a 46-year-old female with recent uncontrolled type 2 insulin-requiring diabetes and now being followed closely for metabolic management. Her glycemic levels are fluctuating but much improved at this time. However, she also has low normal fasting glucose levels as noted thereof. No overt neuroglycopenic or hyperadrenergic manifestations are noted otherwise. Her latest chemistry showed a BUN of 72, sodium 142, potassium 5.1, chloride 105, CO2 of 22, glucose 79 and creatinine 7.3. So at this time, we will continue the same low-dose oral hypoglycemic drug therapy as given with Prandin given as 0.5 mg p.o. t.i.d. before meals as ordered. We will titrate incrementally as indicated to optimize metabolic control. We will follow and advise accordingly. Irene Ambrose MD
[2017-01-06] MEDS: Santyl Collagenase OINTMENT TOP SCH (16:29)
[2017-01-06] MEDS ORDERED: Epoetin Alfa 20000 UNIT/ML Inj SC ONE (16:48)
--- NOTE | 2017-01-06 23:26 | CP.PCM.PN ---
Subjective - Date & Time of Evaluation Date of Evaluation: 01/06/17 Time of Evaluation: 20:00 - Subjective Subjective: Patient had Hemodialysis and is stable. She is seen by Vascular Surgery who is changing the vacuum. She is awake, alert, Oriented and is eating well. Blood Glucose is adjusted. Her B.P. is on Metoprolol 25 mg BID. Less tachycardia and BP Systolic is still high but finally went down. There is no Seizures. Objective - Vital Signs/Intake and Output Vital Signs (last 24 hours): Temp Pulse Resp BP Pulse Ox 98.6 F 95 H 18 144/85 94 L 01/06/17 15:51 01/06/17 21:10 01/06/17 15:51 01/06/17 21:10 01/06/17 15:51 - Medications Medications: Current Medications Acetaminophen (Tylenol 325mg Tab) 650 mg PO Q4 PRN PRN Reason: Fever >100.4 F Last Admin: 12/26/16 19:40 Dose: 650 mg Acetaminophen (Tylenol 325mg Tab) 650 mg PO Q4 PRN PRN Reason: Pain, moderate (4-7) Last Admin: 12/26/16 05:14 Dose: 650 mg Apixaban (Eliquis) 5 mg PO BID [facility] PRN Reason: Protocol Last Admin: 01/06/17 16:27 Dose: 5 mg Aspirin (Ecotrin) 81 mg PO DAILY [facility] Last Admin: 01/06/17 08:48 Dose: 81 mg Atorvastatin Calcium (Lipitor) 40 mg PO DAILY [facility] Last Admin: 01/06/17 08:50 Dose: 40 mg Calcium Carbonate (Oscal) 500 mg PO BIDWM [facility] Last Admin: 01/06/17 16:27 Dose: 500 mg Cinacalcet (Sensipar) 30 mg PO DAILY [facility] Last Admin: 01/06/17 08:48 Dose: 30 mg Collagenase (Santyl) 1 applic TOP DAILY [facility] Last Admin: 01/06/17 16:29 Dose: 1 applic Diphenhydramine HCl (Benadryl) 25 mg PO Q6 PRN PRN Reason: Itching / Pruritus Last Admin: 12/17/16 09:53 Dose: 25 mg Docusate Sodium (Colace) 100 mg PO BID [facility] Last Admin: 01/06/17 16:27 Dose: 100 mg Epoetin Tha (Procrit) 20,000 unit IV MWF [facility] Last Admin: 01/06/17 10:12 Dose: Not Given Ergocalciferol (Drisdol 50,000 Intl Units Cap) 1 cap PO WED [facility] Last Admin: 01/01/17 09:48 Dose: 1 cap Fluconazole (Diflucan) 100 mg PO DAILY [facility] Last Admin: 01/06/17 08:49 Dose: 100 mg Gabapentin (Neurontin) 300 mg PO TID [facility] Last Admin: 01/06/17 16:29 Dose: 300 mg Guaifenesin/Dextromethorphan (Robitussin Dm) 10 ml PO Q4 PRN PRN Reason: Cough Last Admin: 01/03/17 22:19 Dose: 10 ml Hydrocortisone (Anusol-Hc) 1 applic [place] BID PRN PRN Reason: Inflammation Hydromorphone HCl (Dilaudid) 1 mg IVP Q4H PRN PRN Reason: Pain, severe (8-10) Last Admin: 01/06/17 19:01 Dose: 1 mg Tigecycline 25 mg/ Sodium (Chloride) 100 mls @ 100 mls/hr IVPB Q12 [facility] Last Admin: 01/06/17 21:09 Dose: 100 mls/hr Sodium Chloride (Sodium Chloride 0.45%) 500 mls @ 10 mls/hr IV .Q24H [facility] Last Admin: 01/06/17 16:30 Dose: Not Given Daptomycin 650 mg/ Sodium (Chloride) 100 mls @ 100 mls/hr IVPB [facility] Stop: 01/15/17 09:59 Last Admin: 01/06/17 19:03 Dose: 100 mls/hr Ceftazidime/Avibactam 0.94 gm/ (Sodium Chloride) 100 mls @ 50 mls/hr IV QOTHERDAY@2200 [facility] Last Admin: 01/06/17 22:17 Dose: 50 mls/hr Gentamicin Sulfate/Sodium Chloride (Gentamicin 100mg/100ml Ns) 100 mg in 100 mls @ 100 mls/hr IVPB [facility] Last Admin: 01/06/17 12:03 Dose: 100 mls/hr Levalbuterol HCl (Xopenex) 0.63 mg INH RQ8 PRN PRN Reason: Shortness of Breath Metoprolol Tartrate (Lopressor) 25 mg PO Q12 [facility] Last Admin: 01/06/17 21:10 Dose: 25 mg Nystatin (Nystop Topical Powder) 1 applic TOP BID [facility] Last Admin: 01/06/17 16:29 Dose: 1 applic Ondansetron HCl (Zofran Inj) 4 mg IVP Q6 PRN PRN Reason: Nausea/Vomiting Last Admin: 09/19/16 10:26 Dose: 4 mg Pantoprazole Sodium (Protonix Ec Tab) 40 mg PO DAILY [facility] Last Admin: 01/06/17 08:47 Dose: 40 mg Repaglinide (Prandin) 0.5 mg PO TIDAC [facility] Last Admin: 01/06/17 16:27 Dose: 0.5 mg Sennosides (Senokot Tab) 25.8 mg PO HS [facility] Last Admin: 01/06/17 21:10 Dose: 25.8 mg Sevelamer HCl (Renagel) 1,600 mg PO TIDWM [facility] Last Admin: 01/06/17 16:27 Dose: 1,600 mg Simethicone (Mylicon Chew Tab) 80 mg PO Q4H PRN PRN Reason: flatulence or "gassy feeling:" Last Admin: 01/06/17 12:04 Dose: 80 mg Topiramate (Topamax) 50 mg PO BID [facility] Last Admin: 01/06/17 16:27 Dose: 50 mg Vitamin B Complex/Vit C/Folic Acid (Nephro-Ajay) 1 tab PO DAILY [facility] Last Admin: 01/06/17 08:49 Dose: 1 tab - Labs Labs: 01/04/17 16:00 01/04/17 16:00 PT 15.3 Seconds (9.8-13.1) H 12/02/16 13:05 INR 1.4 (0.9-1.2) H 12/02/16 13:05 APTT 37.0 Seconds (25.6-37.1) 12/02/16 13:05 Assessment and Plan (1) Diabetes Status: Chronic (2) ESRD (end stage renal disease) Status: Chronic (3) Cellulitis of leg Status: Chronic (4) Hyperlipidemia Status: Chronic (5) Back pain Status: Acute (6) Bacteremia due to Gram-negative bacteria Status: Acute (7) Diabetes mellitus type 2 with peripheral artery disease Status: Chronic (8) PVD (peripheral vascular disease) Status: Chronic (9) Osteomyelitis of right leg Status: Acute
--- NOTE | 2017-01-07 09:39 | CP.PCM.PN ---
Subjective - Date & Time of Evaluation Date of Evaluation: 01/07/17 Time of Evaluation: 09:37 - Subjective Subjective: Patient is now on metopralol tartrate 25mg bid, and her pulse has come down to aroun 100 and the blood pressure is also lowered, although the systolic is still around 170. We might consider addition of DEMIAN-inhibitor if systolic bp remains high. Euglycemic on current regimen per Dr. Ambrose. Wound vac changed yesterday by advertising vice president. There is no report, but patient was told it was "doing better." Patellar wound needs continued chemical debridement with Santyl and saline dressing. Continues on 4 IV antibiotics and po fluconazole for infection right BK site. Minor elevation in transaminase is not a concern at this time - will monitor. Still with some cough, but no dyspnea or chest pain. Objective - Vital Signs/Intake and Output Vital Signs (last 24 hours): Temp Pulse Resp BP Pulse Ox 98 F 100 H 18 171/69 H 100 01/07/17 08:28 01/07/17 08:28 01/07/17 08:28 01/07/17 08:28 01/07/17 08:28 - Medications Medications: Current Medications Acetaminophen (Tylenol 325mg Tab) 650 mg PO Q4 PRN PRN Reason: Fever >100.4 F Last Admin: 12/26/16 19:40 Dose: 650 mg Acetaminophen (Tylenol 325mg Tab) 650 mg PO Q4 PRN PRN Reason: Pain, moderate (4-7) Last Admin: 12/26/16 05:14 Dose: 650 mg Apixaban (Eliquis) 5 mg PO BID [facility] PRN Reason: Protocol Last Admin: 01/06/17 16:27 Dose: 5 mg Aspirin (Ecotrin) 81 mg PO DAILY [facility] Last Admin: 01/06/17 08:48 Dose: 81 mg Atorvastatin Calcium (Lipitor) 40 mg PO DAILY [facility] Last Admin: 01/06/17 08:50 Dose: 40 mg Calcium Carbonate (Oscal) 500 mg PO BIDWM [facility] Last Admin: 01/06/17 16:27 Dose: 500 mg Cinacalcet (Sensipar) 30 mg PO DAILY [facility] Last Admin: 01/06/17 08:48 Dose: 30 mg Collagenase (Santyl) 1 applic TOP DAILY [facility] Last Admin: 01/06/17 16:29 Dose: 1 applic Diphenhydramine HCl (Benadryl) 25 mg PO Q6 PRN PRN Reason: Itching / Pruritus Last Admin: 12/17/16 09:53 Dose: 25 mg Docusate Sodium (Colace) 100 mg PO BID [facility] Last Admin: 01/06/17 16:27 Dose: 100 mg Epoetin Tha (Procrit) 20,000 unit IV [facility] [place] Last Admin: 01/06/17 10:12 Dose: Not Given Ergocalciferol (Drisdol 50,000 Intl Units Cap) 1 cap PO WED [facility] Last Admin: 01/01/17 09:48 Dose: 1 cap Fluconazole (Diflucan) 100 mg PO DAILY [facility] Last Admin: 01/06/17 08:49 Dose: 100 mg Gabapentin (Neurontin) 300 mg PO TID [facility] Last Admin: 01/06/17 16:29 Dose: 300 mg Guaifenesin/Dextromethorphan (Robitussin Dm) 10 ml PO Q4 PRN PRN Reason: Cough Last Admin: 01/03/17 22:19 Dose: 10 ml Hydrocortisone (Anusol-Hc) 1 applic [place] BID PRN PRN Reason: Inflammation Hydromorphone HCl (Dilaudid) 1 mg IVP Q4H PRN PRN Reason: Pain, severe (8-10) Last Admin: 01/07/17 00:52 Dose: 1 mg Tigecycline 25 mg/ Sodium (Chloride) 100 mls @ 100 mls/hr IVPB Q12 [facility] Last Admin: 01/06/17 21:09 Dose: 100 mls/hr Sodium Chloride (Sodium Chloride 0.45%) 500 mls @ 10 mls/hr IV .Q24H [facility] Last Admin: 01/06/17 16:30 Dose: Not Given Daptomycin 650 mg/ Sodium (Chloride) 100 mls @ 100 mls/hr IVPB [facility] Stop: 01/15/17 09:59 Last Admin: 01/06/17 19:03 Dose: 100 mls/hr Ceftazidime/Avibactam 0.94 gm/ (Sodium Chloride) 100 mls @ 50 mls/hr IV QOTHERDAY@2200 [facility] Last Admin: 01/06/17 22:17 Dose: 50 mls/hr Gentamicin Sulfate/Sodium Chloride (Gentamicin 100mg/100ml Ns) 100 mg in 100 mls @ 100 mls/hr IVPB MWF [facility] Last Admin: 01/06/17 12:03 Dose: 100 mls/hr Levalbuterol HCl (Xopenex) 0.63 mg INH RQ8 PRN PRN Reason: Shortness of Breath Metoprolol Tartrate (Lopressor) 25 mg PO Q12 [facility] Last Admin: 01/06/17 21:10 Dose: 25 mg Nystatin (Nystop Topical Powder) 1 applic TOP BID [facility] Last Admin: 01/06/17 16:29 Dose: 1 applic Ondansetron HCl (Zofran Inj) 4 mg IVP Q6 PRN PRN Reason: Nausea/Vomiting Last Admin: 09/19/16 10:26 Dose: 4 mg Pantoprazole Sodium (Protonix Ec Tab) 40 mg PO DAILY [facility] Last Admin: 01/06/17 08:47 Dose: 40 mg Repaglinide (Prandin) 0.5 mg PO TIDAC [facility] Last Admin: 01/06/17 16:27 Dose: 0.5 mg Sennosides (Senokot Tab) 25.8 mg PO HS [facility] Last Admin: 01/06/17 21:10 Dose: 25.8 mg Sevelamer HCl (Renagel) 1,600 mg PO TIDWM [facility] Last Admin: 01/06/17 16:27 Dose: 1,600 mg Simethicone (Mylicon Chew Tab) 80 mg PO Q4H PRN PRN Reason: flatulence or "gassy feeling:" Last Admin: 01/06/17 12:04 Dose: 80 mg Topiramate (Topamax) 50 mg PO BID [facility] Last Admin: 01/06/17 16:27 Dose: 50 mg Vitamin B Complex/Vit C/Folic Acid (Nephro-Ajay) 1 tab PO DAILY [facility] Last Admin: 01/06/17 08:49 Dose: 1 tab - Labs Labs: 01/04/17 16:00 01/04/17 16:00 PT 15.3 Seconds (9.8-13.1) H 12/02/16 13:05 INR 1.4 (0.9-1.2) H 12/02/16 13:05 APTT 37.0 Seconds (25.6-37.1) 12/02/16 13:05 - Constitutional Appears: No Acute Distress - Head Exam Head Exam: NORMAL INSPECTION - Eye Exam Eye Exam: Normal appearance - ENT Exam ENT Exam: Mucous Membranes Moist - Neck Exam Additional comments: R subclavian Permacath intact. - Respiratory Exam Respiratory Exam: NORMAL BREATHING PATTERN Additional comments: ISome increased secretions in large airways.l - Cardiovascular Exam Cardiovascular Exam: REGULAR RHYTHM, +S1, +S2 - GI/Abdominal Exam GI & Abdominal Exam: Soft - Extremities Exam Additional comments: Dressings and wound vac intact with no leakage. L femoral vein PICC line intact. Hands are warm, with no lesions. - Back Exam Back Exam: NORMAL INSPECTION - Neurological Exam Neurological Exam: Alert, CN II-XII Intact, Oriented x3 - Psychiatric Exam Psychiatric exam: Normal Affect, Normal Mood - Skin Skin Exam: Dry, Normal Color, Pallor, Warm Assessment and Plan (1) Status post below knee amputation of right lower extremity Assessment & Plan: Gradual progress. Continue present care. Status: Acute (2) ESRD (end stage renal disease) on dialysis Status: Chronic (3) DM type 2 (diabetes mellitus, type 2) Status: Chronic (4) Coagulopathy Status: Chronic (5) Peripheral arterial occlusive disease Status: Chronic
[2017-01-07] MEDS: guaiFENesin DM 200 mg-20 mg/10 ml UD PO PRN (10:14)
[2017-01-07] MEDS: Simethicone 80 mg Chewtab PO PRN ×2 (10:15→16:57)
[2017-01-07] MEDS: Multivitamin Vitamin B Complex (Nephro-Vite) Tab PO SCH (10:17)
[2017-01-07] MEDS: Pantoprazole 40 mg EC Tab PO SCH (10:17)
[2017-01-07] MEDS: Santyl Collagenase OINTMENT TOP SCH (10:22)
[2017-01-07] MEDS: SODIUM CHLORIDE 0.9% IVPB SCH (10:27)
[2017-01-07] MEDS: TIGECYCLINE IVPB SCH (10:27)
--- NOTE | 2017-01-07 11:00 | CP.PCM.PN ---
Subjective - Date & Time of Evaluation Date of Evaluation: 01/07/17 Time of Evaluation: 10:58 - Subjective Subjective: Patient appeared to be more comfortable Admitted hemodialysis yesterday Some liver enzyme is slightly elevated to keep eye on that although serum bilirubin within normal limit Impression and plan No changes patient receiving multiple antibiotics and IV and oral And dialysis scheduled Friday Objective - Vital Signs/Intake and Output Vital Signs (last 24 hours): Temp Pulse Resp BP Pulse Ox 98 F 100 H 18 171/69 H 100 01/07/17 08:28 01/07/17 10:18 01/07/17 08:28 01/07/17 10:18 01/07/17 08:28 - Medications Medications: Current Medications Acetaminophen (Tylenol 325mg Tab) 650 mg PO Q4 PRN PRN Reason: Fever >100.4 F Last Admin: 12/26/16 19:40 Dose: 650 mg Acetaminophen (Tylenol 325mg Tab) 650 mg PO Q4 PRN PRN Reason: Pain, moderate (4-7) Last Admin: 12/26/16 05:14 Dose: 650 mg Apixaban (Eliquis) 5 mg PO BID [facility] PRN Reason: Protocol Last Admin: 01/07/17 10:16 Dose: 5 mg Aspirin (Ecotrin) 81 mg PO DAILY [facility] Last Admin: 01/07/17 10:18 Dose: 81 mg Atorvastatin Calcium (Lipitor) 40 mg PO DAILY [facility] Last Admin: 01/07/17 10:17 Dose: 40 mg Calcium Carbonate (Oscal) 500 mg PO BIDWM [facility] Last Admin: 01/07/17 10:16 Dose: 500 mg Cinacalcet (Sensipar) 30 mg PO DAILY [facility] Last Admin: 01/07/17 10:15 Dose: 30 mg Collagenase (Santyl) 1 applic TOP DAILY [facility] Last Admin: 01/07/17 10:22 Dose: 1 applic Diphenhydramine HCl (Benadryl) 25 mg PO Q6 PRN PRN Reason: Itching / Pruritus Last Admin: 12/17/16 09:53 Dose: 25 mg Docusate Sodium (Colace) 100 mg PO BID [facility] Last Admin: 01/07/17 10:22 Dose: 100 mg Epoetin Tha (Procrit) 20,000 unit IV MWF [facility] Last Admin: 01/06/17 10:12 Dose: Not Given Ergocalciferol (Drisdol 50,000 Intl Units Cap) 1 cap PO WED [facility] Last Admin: 01/01/17 09:48 Dose: 1 cap Fluconazole (Diflucan) 100 mg PO DAILY [facility] Last Admin: 01/07/17 10:16 Dose: 100 mg Gabapentin (Neurontin) 300 mg PO TID [facility] Last Admin: 01/07/17 10:20 Dose: 300 mg Guaifenesin/Dextromethorphan (Robitussin Dm) 10 ml PO Q4 PRN PRN Reason: Cough Last Admin: 01/07/17 10:14 Dose: 10 ml Hydrocortisone (Anusol-Hc) 1 applic [place] BID PRN PRN Reason: Inflammation Hydromorphone HCl (Dilaudid) 1 mg IVP Q4H PRN PRN Reason: Pain, severe (8-10) Last Admin: 01/07/17 10:10 Dose: 1 mg Tigecycline 25 mg/ Sodium (Chloride) 100 mls @ 100 mls/hr IVPB Q12 [facility] Last Admin: 01/07/17 10:27 Dose: 100 mls/hr Sodium Chloride (Sodium Chloride 0.45%) 500 mls @ 10 mls/hr IV .Q24H [facility] Last Admin: 01/06/17 16:30 Dose: Not Given Daptomycin 650 mg/ Sodium (Chloride) 100 mls @ 100 mls/hr [place]PB [facility] [place]: 01/15/17 09:59 Last Admin: 01/06/17 19:03 Dose: 100 mls/hr Ceftazidime/Avibactam 0.94 gm/ (Sodium Chloride) 100 mls @ 50 mls/hr IV QOTHERDAY@2200 [facility] Last Admin: 01/06/17 22:17 Dose: 50 mls/hr Gentamicin Sulfate/Sodium Chloride (Gentamicin 100mg/100ml Ns) 100 mg in 100 mls @ 100 mls/hr IVPB [facility] [place] Last Admin: 01/06/17 12:03 Dose: 100 mls/hr Levalbuterol HCl (Xopenex) 0.63 mg INH RQ8 PRN PRN Reason: Shortness of Breath Metoprolol Tartrate (Lopressor) 25 mg PO Q12 [facility] Last Admin: 01/07/17 10:18 Dose: 25 mg Nystatin (Nystop Topical Powder) 1 applic TOP BID [facility] Last Admin: 01/07/17 10:14 Dose: 1 applic Ondansetron HCl (Zofran Inj) 4 mg IVP Q6 PRN PRN Reason: Nausea/Vomiting Last Admin: 09/19/16 10:26 Dose: 4 mg Pantoprazole Sodium (Protonix Ec Tab) 40 mg PO DAILY [facility] Last Admin: 01/07/17 10:17 Dose: 40 mg Repaglinide (Prandin) 0.5 mg PO TIDAC [facility] Last Admin: 01/07/17 08:17 Dose: 0.5 mg Sennosides (Senokot Tab) 25.8 mg PO HS [facility] Last Admin: 01/06/17 21:10 Dose: 25.8 mg Sevelamer HCl (Renagel) 1,600 mg PO TIDWM [facility] Last Admin: 01/07/17 10:15 Dose: 1,600 mg Simethicone (Mylicon Chew Tab) 80 mg PO Q4H PRN PRN Reason: flatulence or "gassy feeling:" Last Admin: 01/07/17 10:15 Dose: 80 mg Topiramate (Topamax) 50 mg PO BID [facility] Last Admin: 01/07/17 10:22 Dose: 50 mg Vitamin B Complex/Vit C/Folic Acid (Nephro-Ajay) 1 tab PO DAILY [facility] Last Admin: 01/07/17 10:17 Dose: 1 tab - Labs Labs: 01/04/17 16:00 01/04/17 16:00 PT 15.3 Seconds (9.8-13.1) H 12/02/16 13:05 INR 1.4 (0.9-1.2) H 12/02/16 13:05 APTT 37.0 Seconds (25.6-37.1) 12/02/16 13:05 Assessment and Plan (1) ESRD (end stage renal disease) Status: Chronic (2) Cellulitis of leg Status: Chronic
--- NOTE | 2017-01-07 16:58 | CP.PCM.PN ---
Subjective - Date & Time of Evaluation Date of Evaluation: 01/07/17 Time of Evaluation: 16:52 - Subjective Subjective: I D NOTE LFTs are beginning to increase considering the amount of tygacil that she has received and the fact that they can suddenly get much worse will discontinue (despite good sensitivity) still continue c Avycaz /Gentamicin Objective - Vital Signs/Intake and Output Vital Signs (last 24 hours): Temp Pulse Resp BP Pulse Ox 98 F 100 H 18 171/69 H 100 01/07/17 08:28 01/07/17 10:18 01/07/17 08:28 01/07/17 10:18 01/07/17 08:28 - Medications Medications: Current Medications Acetaminophen (Tylenol 325mg Tab) 650 mg PO Q4 PRN PRN Reason: Fever >100.4 F Last Admin: 12/26/16 19:40 Dose: 650 mg Acetaminophen (Tylenol 325mg Tab) 650 mg PO Q4 PRN PRN Reason: Pain, moderate (4-7) Last Admin: 12/26/16 05:14 Dose: 650 mg Apixaban (Eliquis) 5 mg PO BID [facility] PRN Reason: Protocol Last Admin: 01/07/17 10:16 Dose: 5 mg Aspirin (Ecotrin) 81 mg PO DAILY [facility] Last Admin: 01/07/17 10:18 Dose: 81 mg Atorvastatin Calcium (Lipitor) 40 mg PO DAILY [facility] Last Admin: 01/07/17 10:17 Dose: 40 mg Calcium Carbonate (Oscal) 500 mg PO BIDWM [facility] Last Admin: 01/07/17 10:16 Dose: 500 mg Cinacalcet (Sensipar) 30 mg PO DAILY [facility] Last Admin: 01/07/17 10:15 Dose: 30 mg Collagenase (Santyl) 1 applic TOP DAILY [facility] Last Admin: 01/07/17 10:22 Dose: 1 applic Diphenhydramine HCl (Benadryl) 25 mg PO Q6 PRN PRN Reason: Itching / Pruritus Last Admin: 12/17/16 09:53 Dose: 25 mg Docusate Sodium (Colace) 100 mg PO BID [facility] Last Admin: 01/07/17 10:22 Dose: 100 mg Epoetin Tha (Procrit) 20,000 unit IV MWF [facility] Last Admin: 01/06/17 10:12 Dose: Not Given Ergocalciferol (Drisdol 50,000 Intl Units Cap) 1 cap PO WED [facility] Last Admin: 01/01/17 09:48 Dose: 1 cap Fluconazole (Diflucan) 100 mg PO DAILY [facility] Last Admin: 01/07/17 10:16 Dose: 100 mg Gabapentin (Neurontin) 300 mg PO TID [facility] Last Admin: 01/07/17 13:03 Dose: 300 mg Guaifenesin/Dextromethorphan (Robitussin Dm) 10 ml PO Q4 PRN PRN Reason: Cough Last Admin: 01/07/17 10:14 Dose: 10 ml Hydrocortisone (Anusol-Hc) 1 applic [place] BID PRN PRN Reason: Inflammation Hydromorphone HCl (Dilaudid) 1 mg IVP Q4H PRN PRN Reason: Pain, severe (8-10) Last Admin: 01/07/17 15:32 Dose: 1 mg Tigecycline 25 mg/ Sodium (Chloride) 100 mls @ 100 mls/hr IVPB Q12 [facility] Last Admin: 01/07/17 10:27 Dose: 100 mls/hr Sodium Chloride (Sodium Chloride 0.45%) 500 mls @ 10 mls/hr IV .Q24H [facility] Last Admin: 01/06/17 16:30 Dose: Not Given Daptomycin 650 mg/ Sodium (Chloride) 100 mls @ 100 mls/hr IVPB [facility] Stop: 01/15/17 09:59 Last Admin: 01/06/17 19:03 Dose: 100 mls/hr Ceftazidime/Avibactam 0.94 gm/ (Sodium Chloride) 100 mls @ 50 mls/hr IV QOTHERDAY@2200 [facility] Last Admin: 01/06/17 22:17 Dose: 50 mls/hr Gentamicin Sulfate/Sodium Chloride (Gentamicin 100mg/100ml Ns) 100 mg in 100 mls @ 100 mls/hr IVPB [facility] [place] Last Admin: 01/06/17 12:03 Dose: 100 mls/hr Levalbuterol HCl (Xopenex) 0.63 mg INH RQ8 PRN PRN Reason: Shortness of Breath Metoprolol Tartrate (Lopressor) 25 mg PO Q12 [facility] Last Admin: 01/07/17 10:18 Dose: 25 mg Nystatin (Nystop Topical Powder) 1 applic TOP BID [facility] Last Admin: 01/07/17 10:14 Dose: 1 applic Ondansetron HCl (Zofran Inj) 4 mg IVP Q6 PRN PRN Reason: Nausea/Vomiting Last Admin: 09/19/16 10:26 Dose: 4 mg Pantoprazole Sodium (Protonix Ec Tab) 40 mg PO DAILY [facility] Last Admin: 01/07/17 10:17 Dose: 40 mg Repaglinide (Prandin) 0.5 mg PO TIDAC [facility] Last Admin: 01/07/17 12:03 Dose: 0.5 mg Sennosides (Senokot Tab) 25.8 mg PO HS [facility] Last Admin: 01/06/17 21:10 Dose: 25.8 mg Sevelamer HCl (Renagel) 1,600 mg PO TIDWM [facility] Last Admin: 01/07/17 13:03 Dose: 1,600 mg Simethicone (Mylicon Chew Tab) 80 mg PO Q4H PRN PRN Reason: flatulence or "gassy feeling:" Last Admin: 01/07/17 10:15 Dose: 80 mg Topiramate (Topamax) 50 mg PO BID [facility] Last Admin: 01/07/17 10:22 Dose: 50 mg Vitamin B Complex/Vit C/Folic Acid (Nephro-Ajay) 1 tab PO DAILY [facility] Last Admin: 01/07/17 10:17 Dose: 1 tab - Labs Labs: 01/04/17 16:00 01/04/17 16:00 PT 15.3 Seconds (9.8-13.1) H 12/02/16 13:05 INR 1.4 (0.9-1.2) H 12/02/16 13:05 APTT 37.0 Seconds (25.6-37.1) 12/02/16 13:05
--- NOTE | 2017-01-07 22:25 | PN ---
DATE: In room 661. SUBJECTIVE: This is a 46-year-old female with recent uncontrolled type 2 diabetes now being followed closely for metabolic management. Her oral intake remains variable, although, has been improved as per the nursing staff. Her glycemic fluctuations are actually related to the variability of her oral intake as noted. LABORATORY DATA: The latest chemistry showed a BUN of 72, sodium 142, potassium 5.1, chloride 105, CO2 of 22, glucose 79 and creatinine 7.3. So, at this time, we will continue the low-dose oral hypoglycemic therapy as given with Prandin given up to the point 5 mg p.o. t.i.d. before meals as ordered. We will titrate incrementally as indicated to optimize metabolic control. We will follow with you. Irene Ambrose MD
--- NOTE | 2017-01-08 00:06 | CP.PCM.PN ---
Subjective - Date & Time of Evaluation Date of Evaluation: 01/07/17 Time of Evaluation: 20:25 - Subjective Subjective: Patient is doing almost the same. Mildly higher LFT that might be related to Tigacyl. She is not suffering from seizures. She is receiving Hemodialysis. She is receiving Anitibiotics for her infection Blood Glucose is controlled by Dr Ambrose of Endocrinology. Objective - Vital Signs/Intake and Output Vital Signs (last 24 hours): Temp Pulse Resp BP Pulse Ox 98.6 F 87 20 131/72 95 01/07/17 16:55 01/07/17 21:30 01/07/17 16:55 01/07/17 21:30 01/07/17 16:55 - Medications Medications: Current Medications Acetaminophen (Tylenol 325mg Tab) 650 mg PO Q4 PRN PRN Reason: Fever >100.4 F Last Admin: 12/26/16 19:40 Dose: 650 mg Acetaminophen (Tylenol 325mg Tab) 650 mg PO Q4 PRN PRN Reason: Pain, moderate (4-7) Last Admin: 12/26/16 05:14 Dose: 650 mg Apixaban (Eliquis) 5 mg PO BID [facility] PRN Reason: Protocol Last Admin: 01/07/17 16:58 Dose: 5 mg Aspirin (Ecotrin) 81 mg PO DAILY [facility] Last Admin: 01/07/17 10:18 Dose: 81 mg Atorvastatin Calcium (Lipitor) 40 mg PO DAILY [facility] Last Admin: 01/07/17 10:17 Dose: 40 mg Calcium Carbonate (Oscal) 500 mg PO BIDWM [facility] Last Admin: 01/07/17 16:58 Dose: 500 mg Cinacalcet (Sensipar) 30 mg PO DAILY [facility] Last Admin: 01/07/17 10:15 Dose: 30 mg Collagenase (Santyl) 1 applic TOP DAILY [facility] Last Admin: 01/07/17 10:22 Dose: 1 applic Diphenhydramine HCl (Benadryl) 25 mg PO Q6 PRN PRN Reason: Itching / Pruritus Last Admin: 12/17/16 09:53 Dose: 25 mg Docusate Sodium (Colace) 100 mg PO BID [facility] Last Admin: 01/07/17 16:58 Dose: 100 mg Epoetin Tha (Procrit) 20,000 unit IV MWF [facility] Last Admin: 01/06/17 10:12 Dose: Not Given Ergocalciferol (Drisdol 50,000 Intl Units Cap) 1 cap PO WED [facility] Last Admin: 01/01/17 09:48 Dose: 1 cap Fluconazole (Diflucan) 100 mg PO DAILY [facility] Last Admin: 01/07/17 10:16 Dose: 100 mg Gabapentin (Neurontin) 300 mg PO TID [facility] Last Admin: 01/07/17 16:58 Dose: 300 mg Guaifenesin/Dextromethorphan (Robitussin Dm) 10 ml PO Q4 PRN PRN Reason: Cough Last Admin: 01/07/17 10:14 Dose: 10 ml Hydrocortisone (Anusol-Hc) 1 applic [place] BID PRN PRN Reason: Inflammation Hydromorphone HCl (Dilaudid) 1 mg IVP Q4H PRN PRN Reason: Pain, severe (8-10) Last Admin: 01/07/17 21:29 Dose: 1 mg Sodium Chloride (Sodium Chloride 0.45%) 500 mls @ 10 mls/hr IV .Q24H [facility] Last Admin: 01/07/17 17:01 Dose: Not Given Daptomycin 650 mg/ Sodium (Chloride) 100 mls @ 100 mls/hr IVPB [facility] [place]: 01/15/17 09:59 Last Admin: 01/06/17 19:03 Dose: 100 mls/hr Ceftazidime/Avibactam 0.94 gm/ (Sodium Chloride) 100 mls @ 50 mls/hr IV QOTHERDAY@2200 [facility] Last Admin: 01/06/17 22:17 Dose: 50 mls/hr Gentamicin Sulfate/Sodium Chloride (Gentamicin 100mg/100ml Ns) 100 mg in 100 mls @ 100 mls/hr IVPB [facility] [place] Last Admin: 01/06/17 12:03 Dose: 100 mls/hr Levalbuterol HCl (Xopenex) 0.63 mg INH RQ8 PRN PRN Reason: Shortness of Breath Metoprolol Tartrate (Lopressor) 25 mg PO Q12 [facility] Last Admin: 01/07/17 21:30 Dose: 25 mg Nystatin (Nystop Topical Powder) 1 applic TOP BID [facility] Last Admin: 01/07/17 16:59 Dose: 1 applic Ondansetron HCl (Zofran Inj) 4 mg IVP Q6 PRN PRN Reason: Nausea/Vomiting Last Admin: 09/19/16 10:26 Dose: 4 mg Pantoprazole Sodium (Protonix Ec Tab) 40 mg PO DAILY [facility] Last Admin: 01/07/17 10:17 Dose: 40 mg Repaglinide (Prandin) 0.5 mg PO TIDAC [facility] Last Admin: 01/07/17 16:57 Dose: 0.5 mg Sennosides (Senokot Tab) 25.8 mg PO HS [facility] Last Admin: 01/07/17 21:30 Dose: 25.8 mg Sevelamer HCl (Renagel) 1,600 mg PO TIDWM [facility] Last Admin: 01/07/17 16:58 Dose: 1,600 mg Simethicone (Mylicon Chew Tab) 80 mg PO Q4H PRN PRN Reason: flatulence or "gassy feeling:" Last Admin: 01/07/17 16:57 Dose: 80 mg Topiramate (Topamax) 50 mg PO BID [facility] Last Admin: 01/07/17 16:59 Dose: 50 mg Vitamin B Complex/Vit C/Folic Acid (Nephro-Ajay) 1 tab PO DAILY [facility] Last Admin: 01/07/17 10:17 Dose: 1 tab - Labs Labs: 01/04/17 16:00 01/04/17 16:00 PT 15.3 Seconds (9.8-13.1) H 12/02/16 13:05 INR 1.4 (0.9-1.2) H 12/02/16 13:05 APTT 37.0 Seconds (25.6-37.1) 12/02/16 13:05 Assessment and Plan (1) Diabetes Status: Chronic (2) ESRD (end stage renal disease) Status: Chronic (3) Cellulitis of leg Status: Chronic (4) Hyperlipidemia Status: Chronic (5) Back pain Status: Acute (6) Bacteremia due to Gram-negative bacteria Status: Acute (7) Diabetes mellitus type 2 with peripheral artery disease Status: Chronic (8) PVD (peripheral vascular disease) Status: Chronic (9) Osteomyelitis of right leg Status: Acute
[2017-01-08] MEDS: guaiFENesin DM 200 mg-20 mg/10 ml UD PO PRN ×2 (06:09→21:24)
[2017-01-08] MEDS: Pantoprazole 40 mg EC Tab PO SCH (08:57)
[2017-01-08] MEDS: Multivitamin Vitamin B Complex (Nephro-Vite) Tab PO SCH (08:59)
[2017-01-08] MEDS: Ergocalciferol 50,000 Intl Units Cap PO SCH (09:01)
[2017-01-08] MEDS: Santyl Collagenase OINTMENT TOP SCH (09:12)
--- NOTE | 2017-01-08 11:03 | CP.PCM.PN ---
Subjective - Date & Time of Evaluation Date of Evaluation: 01/08/17 Time of Evaluation: 11:01 - Subjective Subjective: Patient is comfortable and awaiting hemodialysis. Discussed care with Dr. Guadarrama. We are continuing metoprolol tartrate 25mg bid and have achieved good control of pulse and blood pressure. Dr. Lemon's note appreciated. He has discontinued tigacycline because of elevation in transaminases. R BK wound vac is intact. Now on 3 iv antibiotics plus fluconazole. Dr. Evita Shepard has ordered CBC for today, and I have added CMP. Good glucose control. No seizures. No bleeding or clotting. Left BK prosthesis was adjusted by feed research technician from [facility]. She will begin wearing it tomorrow. She will also start learning transfer techniques tomorrow. Objective - Vital Signs/Intake and Output Vital Signs (last 24 hours): Temp Pulse Resp BP Pulse Ox 97.8 F 86 18 136/58 L 97 01/08/17 00:30 01/08/17 00:30 01/08/17 00:30 01/08/17 00:30 01/08/17 00:30 - Medications Medications: Current Medications Acetaminophen (Tylenol 325mg Tab) 650 mg PO Q4 PRN PRN Reason: Fever >100.4 F Last Admin: 12/26/16 19:40 Dose: 650 mg Acetaminophen (Tylenol 325mg Tab) 650 mg PO Q4 PRN PRN Reason: Pain, moderate (4-7) Last Admin: 12/26/16 05:14 Dose: 650 mg Apixaban (Eliquis) 5 mg PO BID [facility] PRN Reason: Protocol Last Admin: 01/08/17 08:58 Dose: 5 mg Aspirin (Ecotrin) 81 mg PO DAILY [facility] Last Admin: 01/08/17 08:58 Dose: 81 mg Atorvastatin Calcium (Lipitor) 40 mg PO DAILY [facility] Last Admin: 01/08/17 09:02 Dose: 40 mg Calcium Carbonate (Oscal) 500 mg PO BIDWM [facility] Last Admin: 01/08/17 09:00 Dose: 500 mg Cinacalcet (Sensipar) 30 mg PO DAILY [facility] Last Admin: 01/08/17 09:00 Dose: 30 mg Collagenase (Santyl) 1 applic TOP DAILY [facility] Last Admin: 01/08/17 09:12 Dose: 1 applic Diphenhydramine HCl (Benadryl) 25 mg PO Q6 PRN PRN Reason: Itching / Pruritus Last Admin: 12/17/16 09:53 Dose: 25 mg Docusate Sodium (Colace) 100 mg PO BID [facility] Last Admin: 01/08/17 09:01 Dose: 100 mg Epoetin Tha (Procrit) 20,000 [place] [facility] [place] Admin: 01/06/17 10:12 Dose: Not Given Ergocalciferol (Drisdol 50,000 Intl Units Cap) 1 cap PO WED [facility] Last Admin: 01/08/17 09:01 Dose: 1 cap Fluconazole (Diflucan) 100 mg PO DAILY [facility] Last Admin: 01/08/17 09:01 Dose: 100 mg Gabapentin (Neurontin) 300 mg PO TID [facility] Last Admin: 01/08/17 08:59 Dose: 300 mg Guaifenesin/Dextromethorphan (Robitussin Dm) 10 ml PO Q4 PRN PRN Reason: Cough Last Admin: 01/08/17 06:09 Dose: 10 ml Hydrocortisone (Anusol-Hc) 1 applic [place] BID PRN PRN Reason: Inflammation Hydromorphone HCl (Dilaudid) 1 mg IVP Q4H PRN PRN Reason: Pain, severe (8-10) Last Admin: 01/08/17 09:17 Dose: 1 mg Sodium Chloride (Sodium Chloride 0.45%) 500 mls @ 10 mls/hr IV .Q24H [facility] Last Admin: 01/07/17 17:01 Dose: Not Given Daptomycin 650 mg/ Sodium (Chloride) 100 mls @ 100 mls/hr [place]PB [facility] [place] Stop: 01/15/17 09:59 Last Admin: 01/06/17 19:03 Dose: 100 mls/hr Ceftazidime/Avibactam 0.94 gm/ (Sodium Chloride) 100 mls @ 50 mls/hr IV QOTHERDAY@2200 [facility] Last Admin: 01/06/17 22:17 Dose: 50 mls/hr Gentamicin Sulfate/Sodium Chloride (Gentamicin 100mg/100ml Ns) 100 mg in 100 mls @ 100 mls/hr [place]PB [facility] [place] Last Admin: 01/06/17 12:03 Dose: 100 mls/hr Levalbuterol HCl (Xopenex) 0.63 mg INH RQ8 PRN PRN Reason: Shortness of Breath Metoprolol Tartrate (Lopressor) 25 mg PO Q12 [facility] Last Admin: 01/08/17 09:07 Dose: 25 mg Nystatin (Nystop Topical Powder) 1 applic TOP BID [facility] Last Admin: 01/08/17 09:00 Dose: 1 applic Ondansetron HCl (Zofran Inj) 4 mg IVP Q6 PRN PRN Reason: Nausea/Vomiting Last Admin: 09/19/16 10:26 Dose: 4 mg Pantoprazole Sodium (Protonix Ec Tab) 40 mg PO DAILY [facility] Last Admin: 01/08/17 08:57 Dose: 40 mg Repaglinide (Prandin) 0.5 mg PO TIDAC [facility] Last Admin: 01/08/17 08:56 Dose: 0.5 mg Sennosides (Senokot Tab) 25.8 mg PO HS [facility] Last Admin: 01/07/17 21:30 Dose: 25.8 mg Sevelamer HCl (Renagel) 1,600 mg PO TIDWM [facility] Last Admin: 01/08/17 08:57 Dose: 1,600 mg Simethicone (Mylicon Chew Tab) 80 mg PO Q4H PRN PRN Reason: flatulence or "gassy feeling:" Last Admin: 01/07/17 16:57 Dose: 80 mg Topiramate (Topamax) 50 mg PO BID [facility] Last Admin: 01/08/17 09:00 Dose: 50 mg Vitamin B Complex/Vit C/Folic Acid (Nephro-Ajay) 1 tab PO DAILY [facility] Last Admin: 01/08/17 08:59 Dose: 1 tab - Labs Labs: 01/04/17 16:00 01/04/17 16:00 PT 15.3 Seconds (9.8-13.1) H 12/02/16 13:05 INR 1.4 (0.9-1.2) H 12/02/16 13:05 APTT 37.0 Seconds (25.6-37.1) 12/02/16 13:05 - Constitutional Appears: No Acute Distress - Head Exam Head Exam: NORMAL INSPECTION - Eye Exam Eye Exam: Normal appearance - ENT Exam ENT Exam: Mucous Membranes Moist - Neck Exam Neck Exam: Normal Inspection - Respiratory Exam Respiratory Exam: Clear to Ausculation Bilateral, NORMAL BREATHING PATTERN - Cardiovascular Exam Cardiovascular Exam: REGULAR RHYTHM, +S1, +S2 - GI/Abdominal Exam GI & Abdominal Exam: Soft - Extremities Exam Additional comments: Dressings intact. L femoral v. PICC line intact and functioning well. Hands warm. - Back Exam Back Exam: NORMAL INSPECTION - Neurological Exam Neurological Exam: Alert, CN II-XII Intact, Oriented x3 - Psychiatric Exam Psychiatric exam: Normal Affect, Normal Mood - Skin Skin Exam: Dry, Normal Color, Warm Assessment and Plan (1) Status post below knee amputation of right lower extremity Status: Acute (2) ESRD (end stage renal disease) on dialysis Assessment & Plan: Making nice progress in healing. Now on 3 IV antibiotics plus fluconazole. Must watch liver enzymes. Continue physical therapy and begin learning to transfer. Status: Chronic (3) DM type 2 (diabetes mellitus, type 2) Status: Chronic (4) Coagulopathy Status: Chronic (5) Peripheral arterial occlusive disease Status: Chronic
--- NOTE | 2017-01-08 11:23 | CP.PCM.PN ---
Subjective - Date & Time of Evaluation Date of Evaluation: 01/08/17 Time of Evaluation: 11:19 - Subjective Subjective: Patient and bed appears to be comfortable Heart rate stable Blood pressure is well controlled at the present No chest pain no shortness of breath Hemodialysis about to start now order was given Sodium 138 k 2meq chest clear HT no rubs abd soft A/P as previous no changes continu HD Objective - Vital Signs/Intake and Output Vital Signs (last 24 hours): Temp Pulse Resp BP Pulse Ox 97.8 F 86 18 136/58 L 97 01/08/17 00:30 01/08/17 00:30 01/08/17 00:30 01/08/17 00:30 01/08/17 00:30 - Medications Medications: Current Medications Acetaminophen (Tylenol 325mg Tab) 650 mg PO Q4 PRN PRN Reason: Fever >100.4 F Last Admin: 12/26/16 19:40 Dose: 650 mg Acetaminophen (Tylenol 325mg Tab) 650 mg PO Q4 PRN PRN Reason: Pain, moderate (4-7) Last Admin: 12/26/16 05:14 Dose: 650 mg Apixaban (Eliquis) 5 mg PO BID [facility] PRN Reason: Protocol Last Admin: 01/08/17 08:58 Dose: 5 mg Aspirin (Ecotrin) 81 mg PO DAILY [facility] Last Admin: 01/08/17 08:58 Dose: 81 mg Atorvastatin Calcium (Lipitor) 40 mg PO DAILY [facility] Last Admin: 01/08/17 09:02 Dose: 40 mg Calcium Carbonate (Oscal) 500 mg PO BIDWM [facility] Last Admin: 01/08/17 09:00 Dose: 500 mg Cinacalcet (Sensipar) 30 mg PO DAILY [facility] Last Admin: 01/08/17 09:00 Dose: 30 mg Collagenase (Santyl) 1 applic TOP DAILY [facility] Last Admin: 01/08/17 09:12 Dose: 1 applic Diphenhydramine HCl (Benadryl) 25 mg PO Q6 PRN PRN Reason: Itching / Pruritus Last Admin: 12/17/16 09:53 Dose: 25 mg Docusate Sodium (Colace) 100 mg PO BID [facility] Last Admin: 01/08/17 09:01 Dose: 100 mg Epoetin Tha (Procrit) 20,000 unit IV MWF [facility] Last Admin: 01/06/17 10:12 Dose: Not Given Ergocalciferol (Drisdol 50,000 Intl Units Cap) 1 cap PO WED [facility] Last Admin: 01/08/17 09:01 Dose: 1 cap Fluconazole (Diflucan) 100 mg PO DAILY [facility] Last Admin: 01/08/17 09:01 Dose: 100 mg Gabapentin (Neurontin) 300 mg PO TID [facility] Last Admin: 01/08/17 08:59 Dose: 300 mg Guaifenesin/Dextromethorphan (Robitussin Dm) 10 ml PO Q4 PRN PRN Reason: Cough Last Admin: 01/08/17 06:09 Dose: 10 ml Hydrocortisone (Anusol-Hc) 1 applic [place] BID PRN PRN Reason: Inflammation Hydromorphone HCl (Dilaudid) 1 mg IVP Q4H PRN PRN Reason: Pain, severe (8-10) Last Admin: 01/08/17 09:17 Dose: 1 mg Sodium Chloride (Sodium Chloride 0.45%) 500 mls @ 10 mls/hr IV .Q24H [facility] Last Admin: 01/07/17 17:01 Dose: Not Given Daptomycin 650 mg/ Sodium (Chloride) 100 mls @ 100 mls/hr IVPB [facility] [place] Stop: 01/15/17 09:59 Last Admin: 01/06/17 19:03 Dose: 100 mls/hr Ceftazidime/Avibactam 0.94 gm/ (Sodium Chloride) 100 mls @ 50 mls/hr IV QOTHERDAY@2200 [facility] Last Admin: 01/06/17 22:17 Dose: 50 mls/hr Gentamicin Sulfate/Sodium Chloride (Gentamicin 100mg/100ml Ns) 100 mg in 100 mls @ 100 mls/hr IVPB [facility] [place] Last Admin: 01/06/17 12:03 Dose: 100 mls/hr Levalbuterol HCl (Xopenex) 0.63 mg INH RQ8 PRN PRN Reason: Shortness of Breath Metoprolol Tartrate (Lopressor) 25 mg PO Q12 [facility] Last Admin: 01/08/17 09:07 Dose: 25 mg Nystatin (Nystop Topical Powder) 1 applic TOP BID [facility] Last Admin: 01/08/17 09:00 Dose: 1 applic Ondansetron HCl (Zofran Inj) 4 mg IVP Q6 PRN PRN Reason: Nausea/Vomiting Last Admin: 09/19/16 10:26 Dose: 4 mg Pantoprazole Sodium (Protonix Ec Tab) 40 mg PO DAILY [facility] Last Admin: 01/08/17 08:57 Dose: 40 mg Repaglinide (Prandin) 0.5 mg PO TIDAC [facility] Last Admin: 01/08/17 08:56 Dose: 0.5 mg Sennosides (Senokot Tab) 25.8 mg PO HS [facility] Last Admin: 01/07/17 21:30 Dose: 25.8 mg Sevelamer HCl (Renagel) 1,600 mg PO TIDWM [facility] Last Admin: 01/08/17 08:57 Dose: 1,600 mg Simethicone (Mylicon Chew Tab) 80 mg PO Q4H PRN PRN Reason: flatulence or "gassy feeling:" Last Admin: 01/07/17 16:57 Dose: 80 mg Topiramate (Topamax) 50 mg PO BID [facility] Last Admin: 01/08/17 09:00 Dose: 50 mg Vitamin B Complex/Vit C/Folic Acid (Nephro-Ajay) 1 tab PO DAILY [facility] Last Admin: 01/08/17 08:59 Dose: 1 tab - Labs Labs: 01/04/17 16:00 01/04/17 16:00 PT 15.3 Seconds (9.8-13.1) H 12/02/16 13:05 INR 1.4 (0.9-1.2) H 12/02/16 13:05 APTT 37.0 Seconds (25.6-37.1) 12/02/16 13:05 Assessment and Plan (1) ESRD (end stage renal disease) Status: Chronic (2) Cellulitis of leg Status: Chronic
--- NOTE | 2017-01-08 16:39 | PN ---
ENDO FOLLOWUP NOTE LOCATION: Room 661. SUBJECTIVE: This is a 46-year-old female with recent right below-knee amputation for severe underlying osteomyelitis and is now being followed closely for metabolic management. Her glycemic levels are fluctuating because of the variability of her oral intake as noted. The latest chemistry showed a BUN of 72, sodium 142, potassium 5.1, chloride 105, CO2 of 22, glucose 79 and creatinine 7.3. So at this time, we will continue the low-dose oral hypoglycemic therapy with Prandin given as 0.5 mg t.i.d. before meals as ordered. We will titrate incrementally as indicated to optimize metabolic control. We will follow. Irene Ambrose MD
[2017-01-08] MEDS: Epoetin Alfa 20000 UNIT/ML Inj IV SCH ×2 (16:42→16:44)
[2017-01-08 17:08] LABS: BASO # 0.1 K/uL (0.0-0.2); BASO % 0.7 % (0.0-2.0); EOS # 0.8 K/uL (0.0-0.7); EOS % 8.1 % (0.0-4.0); HEMATOCRIT 35.8 % (34.0-47.0); LYMPH # 1.6 K/uL (1.0-4.3); LYMPH % 16.6 % (20.0-40.0); MEAN CORPUSCULAR HEMOGLOBIN 30.3 pg (27.0-31.0); MEAN CORPUSCULAR HGB CONC 31.2 g/dL (33.0-37.0); MEAN PLATELET VOLUME 9.8 fl (7.2-11.7); NEUT # 6.3 K/uL (1.8-7.0); NEUT % 64.6 % (50.0-75.0); RED CELL DISTRIBUTION WIDTH 20.4 % (11.5-14.5); WHITE BLOOD COUNT 9.8 K/uL (4.8-10.8)
[2017-01-08 17:23] LABS: ALB/GLOB RATIO 0.8 (1.0-2.1); BILIRUBIN,TOTAL 0.5 mg/dl (0.2-1.3); CALCIUM 8.7 mg/dL (8.4-10.2); POTASSIUM 4.5 MMOL/L (3.6-5.0); TOTAL PROTEIN 7.3 G/DL (6.3-8.2)
--- NOTE | 2017-01-08 23:22 | CP.PCM.PN ---
Subjective - Date & Time of Evaluation Date of Evaluation: 01/08/17 Time of Evaluation: 20:40 - Subjective Subjective: Mildly high LFT, showing borderline high AST, ALP and normal ALT which is the most important LFT. Tigacyl is stopped. She received focal care for her Right BKA wound and a vacuum. She is receiving Hemodialysis M,W,F under care of Nephrology. Her Blood Glucose is adjusted by endocrinology. Her general condition is stable. There is no seizures on Topamax 50 mg Q 12 hrs. Objective - Vital Signs/Intake and Output Vital Signs (last 24 hours): Temp Pulse Resp BP Pulse Ox 98.3 F 97 H 18 155/83 H 98 01/08/17 16:50 01/08/17 21:18 01/08/17 16:50 01/08/17 21:18 01/08/17 16:50 - Medications Medications: Current Medications Acetaminophen (Tylenol 325mg Tab) 650 mg PO Q4 PRN PRN Reason: Fever >100.4 F Last Admin: 12/26/16 19:40 Dose: 650 mg Acetaminophen (Tylenol 325mg Tab) 650 mg PO Q4 PRN PRN Reason: Pain, moderate (4-7) Last Admin: 12/26/16 05:14 Dose: 650 mg Apixaban (Eliquis) 5 mg PO BID [facility] PRN Reason: Protocol Last Admin: 01/08/17 16:41 Dose: 5 mg Aspirin (Ecotrin) 81 mg PO DAILY [facility] Last Admin: 01/08/17 08:58 Dose: 81 mg Atorvastatin Calcium (Lipitor) 40 mg PO DAILY [facility] Last Admin: 01/08/17 09:02 Dose: 40 mg Calcium Carbonate (Oscal) 500 mg PO BIDWM [facility] Last Admin: 01/08/17 16:40 Dose: 500 mg Cinacalcet (Sensipar) 30 mg PO DAILY [facility] Last Admin: 01/08/17 09:00 Dose: 30 mg Collagenase (Santyl) 1 applic TOP DAILY [facility] Last Admin: 01/08/17 09:12 Dose: 1 applic Diphenhydramine HCl (Benadryl) 25 mg PO Q6 PRN PRN Reason: Itching / Pruritus Last Admin: 12/17/16 09:53 Dose: 25 mg Docusate Sodium (Colace) 100 mg PO BID [facility] Last Admin: 01/08/17 16:40 Dose: 100 mg Epoetin Tha (Procrit) 20,000 [place] [facility] [place] Admin: 01/08/17 16:44 Dose: 20,000 unit Ergocalciferol (Drisdol 50,000 Intl Units Cap) 1 cap PO WED [facility] Last Admin: 01/08/17 09:01 Dose: 1 cap Fluconazole (Diflucan) 100 mg PO DAILY [facility] Last Admin: 01/08/17 09:01 Dose: 100 mg Gabapentin (Neurontin) 300 mg PO TID [facility] Last Admin: 01/08/17 16:39 Dose: 300 mg Guaifenesin/Dextromethorphan (Robitussin Dm) 10 ml PO Q4 PRN PRN Reason: Cough Last Admin: 01/08/17 21:24 Dose: 10 ml Hydrocortisone (Anusol-Hc) 1 applic [place] BID PRN PRN Reason: Inflammation Hydromorphone HCl (Dilaudid) 1 mg IVP Q4H PRN PRN Reason: Pain, severe (8-10) Last Admin: 01/08/17 22:42 Dose: 1 mg Sodium Chloride (Sodium Chloride 0.45%) 500 mls @ 10 mls/hr IV .Q24H [facility] Last Admin: 01/08/17 16:37 Dose: 10 mls/hr Daptomycin 650 mg/ Sodium (Chloride) 100 mls @ 100 mls/hr [place] [facility] [place] Stop: 01/15/17 09:59 Last Admin: 01/08/17 20:10 Dose: 100 mls/hr Ceftazidime/Avibactam 0.94 gm/ (Sodium Chloride) 100 mls @ 50 mls/hr IV QOTHERDAY@2200 [facility] Last Admin: 01/08/17 21:11 Dose: 50 mls/hr Gentamicin Sulfate/Sodium Chloride (Gentamicin 100mg/100ml Ns) 100 mg in 100 mls @ 100 mls/hr [place] [facility] [place] Admin: 01/06/17 12:03 Dose: 100 mls/hr Levalbuterol HCl (Xopenex) 0.63 mg INH RQ8 PRN PRN Reason: Shortness of Breath Metoprolol Tartrate (Lopressor) 25 mg PO Q12 [facility] Last Admin: 01/08/17 21:18 Dose: 25 mg Nystatin (Nystop Topical Powder) 1 applic TOP BID [facility] Last Admin: 01/08/17 16:38 Dose: 1 applic Ondansetron HCl (Zofran Inj) 4 mg IVP Q6 PRN PRN Reason: Nausea/Vomiting Last Admin: 09/19/16 10:26 Dose: 4 mg Pantoprazole Sodium (Protonix Ec Tab) 40 mg PO DAILY [facility] Last Admin: 01/08/17 08:57 Dose: 40 mg Repaglinide (Prandin) 0.5 mg PO TIDAC [facility] Last Admin: 01/08/17 16:38 Dose: 0.5 mg Sennosides (Senokot Tab) 25.8 mg PO HS [facility] Last Admin: 01/08/17 21:25 Dose: 25.8 mg Sevelamer HCl (Renagel) 1,600 mg PO TIDWM [facility] Last Admin: 01/08/17 16:38 Dose: 1,600 mg Simethicone (Mylicon Chew Tab) 80 mg PO Q4H PRN PRN Reason: flatulence or "gassy feeling:" Last Admin: 01/07/17 16:57 Dose: 80 mg Topiramate (Topamax) 50 mg PO BID [facility] Last Admin: 01/08/17 16:41 Dose: 50 mg Vitamin B Complex/Vit C/Folic Acid (Nephro-Ajay) 1 tab PO DAILY [facility] Last Admin: 01/08/17 08:59 Dose: 1 tab - Labs Labs: 01/08/17 17:02 01/08/17 17:02 PT 15.3 Seconds (9.8-13.1) H 12/02/16 13:05 INR 1.4 (0.9-1.2) H 12/02/16 13:05 APTT 37.0 Seconds (25.6-37.1) 12/02/16 13:05 Assessment and Plan (1) Diabetes Status: Chronic (2) ESRD (end stage renal disease) Status: Chronic (3) Cellulitis of leg Status: Chronic (4) Hyperlipidemia Status: Chronic (5) Back pain Status: Acute (6) Bacteremia due to Gram-negative bacteria Status: Acute (7) Diabetes mellitus type 2 with peripheral artery disease Status: Chronic (8) PVD (peripheral vascular disease) Status: Chronic (9) Osteomyelitis of right leg Status: Acute
[2017-01-08] MEDS: Gentamicin 100mg/100ml NS 100 MG/100 ML BAG IVPB SCH (23:44)
[2017-01-09] MEDS: Pantoprazole 40 mg EC Tab PO SCH (09:22)
[2017-01-09] MEDS: Multivitamin Vitamin B Complex (Nephro-Vite) Tab PO SCH (09:24)
[2017-01-09] MEDS: Santyl Collagenase OINTMENT TOP SCH (09:26)
--- NOTE | 2017-01-09 11:19 | CP.PCM.PN ---
Subjective - Date & Time of Evaluation Date of Evaluation: 01/09/17 Time of Evaluation: 11:18 - Subjective Subjective: Patient sitting in the chair Patient is comfortable no shortness of breath no difficulty breathing Patient eating well Hemodialysis yesterday completed with 4000 mL ultrafiltration Rest of the medical problem has not been changed as noted on my previous note and the primary team note Objective - Vital Signs/Intake and Output Vital Signs (last 24 hours): Temp Pulse Resp BP Pulse Ox 98.6 F 92 H 20 122/75 94 L 01/09/17 08:17 01/09/17 08:17 01/09/17 08:01/09/17 08:01/09/17 08:17 - Medications Medications: Current Medications Acetaminophen (Tylenol 325mg Tab) 650 mg PO Q4 PRN PRN Reason: Fever >100.4 F Last Admin: 12/26/16 19:40 Dose: 650 mg Acetaminophen (Tylenol 325mg Tab) 650 mg PO Q4 PRN PRN Reason: Pain, moderate (4-7) Last Admin: 12/26/16 05:14 Dose: 650 mg Apixaban (Eliquis) 5 mg PO BID [facility] PRN Reason: Protocol Last Admin: 01/09/17 09:23 Dose: 5 mg Aspirin (Ecotrin) 81 mg PO DAILY [facility] Last Admin: 01/09/17 09:22 Dose: 81 mg Atorvastatin Calcium (Lipitor) 40 mg PO DAILY [facility] Last Admin: 01/09/17 09:24 Dose: 40 mg Calcium Carbonate (Oscal) 500 mg PO BIDWM [facility] Last Admin: 01/09/17 09:23 Dose: 500 mg Cinacalcet (Sensipar) 30 mg PO DAILY [facility] Last Admin: 01/09/17 09:24 Dose: 30 mg Collagenase (Santyl) 1 applic TOP DAILY [facility] Last Admin: 01/09/17 09:26 Dose: 1 applic Diphenhydramine HCl (Benadryl) 25 mg PO Q6 PRN PRN Reason: Itching / Pruritus Last Admin: 12/17/16 09:53 Dose: 25 mg Docusate Sodium (Colace) 100 mg PO BID [facility] Last Admin: 01/09/17 09:21 Dose: 100 mg Epoetin Tha (Procrit) 20,000 unit IV MWF [facility] Last Admin: 01/08/17 16:44 Dose: 20,000 unit Ergocalciferol (Drisdol 50,000 Intl Units Cap) 1 cap PO WED [facility] Last Admin: 01/08/17 09:01 Dose: 1 cap Fluconazole (Diflucan) 100 mg PO DAILY [facility] Last Admin: 01/09/17 09:23 Dose: 100 mg Gabapentin (Neurontin) 300 mg PO TID [facility] Last Admin: 01/09/17 09:21 Dose: 300 mg Guaifenesin/Dextromethorphan (Robitussin Dm) 10 ml PO Q4 PRN PRN Reason: Cough Last Admin: 01/08/17 21:24 Dose: 10 ml Hydrocortisone (Anusol-Hc) 1 applic [place] BID PRN PRN Reason: Inflammation Hydromorphone HCl (Dilaudid) 1 mg IVP Q4H PRN PRN Reason: Pain, severe (8-10) Last Admin: 01/09/17 09:29 Dose: 1 mg Sodium Chloride (Sodium Chloride 0.45%) 500 mls @ 10 mls/hr IV .Q24H [facility] Last Admin: 01/08/17 16:37 Dose: 10 mls/hr Daptomycin 650 mg/ Sodium (Chloride) 100 mls @ 100 mls/hr IVPB [facility] [place] Stop: 01/15/17 09:59 Last Admin: 01/08/17 20:10 Dose: 100 mls/hr Ceftazidime/Avibactam 0.94 gm/ (Sodium Chloride) 100 mls @ 50 mls/hr IV QOTHERDAY@2200 [facility] Last Admin: 01/08/17 21:11 Dose: 50 mls/hr Gentamicin Sulfate/Sodium Chloride (Gentamicin 100mg/100ml Ns) 100 mg in 100 mls @ 100 mls/hr IVPB [facility] [place] Last Admin: 01/08/17 23:44 Dose: 100 mls/hr Levalbuterol HCl (Xopenex) 0.63 mg INH RQ8 PRN PRN Reason: Shortness of Breath Metoprolol Tartrate (Lopressor) 25 mg PO Q12 [facility] Last Admin: 01/09/17 09:21 Dose: 25 mg Nystatin (Nystop Topical Powder) 1 applic TOP BID [facility] Last Admin: 01/09/17 09:20 Dose: 1 applic Ondansetron HCl (Zofran Inj) 4 mg IVP Q6 PRN PRN Reason: Nausea/Vomiting Last Admin: 09/19/16 10:26 Dose: 4 mg Pantoprazole Sodium (Protonix Ec Tab) 40 mg PO DAILY [facility] Last Admin: 01/09/17 09:22 Dose: 40 mg Repaglinide (Prandin) 0.5 mg PO TIDAC [facility] Last Admin: 01/09/17 09:21 Dose: 0.5 mg Sennosides (Senokot Tab) 25.8 mg PO HS [facility] Last Admin: 01/08/17 21:25 Dose: 25.8 mg Sevelamer HCl (Renagel) 1,600 mg PO TIDWM [facility] Last Admin: 01/09/17 09:22 Dose: 1,600 mg Simethicone (Mylicon Chew Tab) 80 mg PO Q4H PRN PRN Reason: flatulence or "gassy feeling:" Last Admin: 01/07/17 16:57 Dose: 80 mg Topiramate (Topamax) 50 mg PO BID [facility] Last Admin: 01/09/17 09:24 Dose: 50 mg Vitamin B Complex/Vit C/Folic Acid (Nephro-Ajay) 1 tab PO DAILY [facility] Last Admin: 01/09/17 09:24 Dose: 1 tab - Labs Labs: 01/08/17 17:02 01/08/17 17:02 PT 15.3 Seconds (9.8-13.1) H 12/02/16 13:05 INR 1.4 (0.9-1.2) H 12/02/16 13:05 APTT 37.0 Seconds (25.6-37.1) 12/02/16 13:05 Assessment and Plan (1) ESRD (end stage renal disease) Status: Chronic (2) Cellulitis of leg Status: Chronic
--- NOTE | 2017-01-09 14:51 | CP.PCM.PN ---
Subjective - Date & Time of Evaluation Date of Evaluation: 01/09/17 Time of Evaluation: 14:46 - Subjective Subjective: Patient is feeling a bit tired, but is sitting up in wheelchair. Some physical/ occupational therapy accomplished today. Still some chest congestion, mainly in large airways. No fevers or dyspnea. For change in right BK wound vac tomorrow. Daily patellar dressings with Santyl continue. On 3 iv antibiotics (ceftazidime/avibactam, gentamicin, daptomycin) and on oral fluconazole. On Eliquis and aspirin for coagulopathy. On Topamax for seizure disorder. Euglycemic on Prandin. All other labs are also satisfactory, with SGOT (AST) of only 40. Objective - Vital Signs/Intake and Output Vital Signs (last 24 hours): Temp Pulse Resp BP Pulse Ox 98.6 F 92 H 20 122/75 94 L 01/09/17 08:17 01/09/17 08:17 01/09/17 08:17 01/09/17 08:17 01/09/17 08:17 - Medications Medications: Current Medications Acetaminophen (Tylenol 325mg Tab) 650 mg PO Q4 PRN PRN Reason: Fever >100.4 F Last Admin: 12/26/16 19:40 Dose: 650 mg Acetaminophen (Tylenol 325mg Tab) 650 mg PO Q4 PRN PRN Reason: Pain, moderate (4-7) Last Admin: 12/26/16 05:14 Dose: 650 mg Apixaban (Eliquis) 5 mg PO BID [facility] PRN Reason: Protocol Last Admin: 01/09/17 09:23 Dose: 5 mg Aspirin (Ecotrin) 81 mg PO DAILY [facility] Last Admin: 01/09/17 09:22 Dose: 81 mg Atorvastatin Calcium (Lipitor) 40 mg PO DAILY [facility] Last Admin: 01/09/17 09:24 Dose: 40 mg Calcium Carbonate (Oscal) 500 mg PO BIDWM [facility] Last Admin: 01/09/17 09:23 Dose: 500 mg Cinacalcet (Sensipar) 30 mg PO DAILY [facility] Last Admin: 01/09/17 09:24 Dose: 30 mg Collagenase (Santyl) 1 applic TOP DAILY [facility] Last Admin: 01/09/17 09:26 Dose: 1 applic Diphenhydramine HCl (Benadryl) 25 mg PO Q6 PRN PRN Reason: Itching / Pruritus Last Admin: 12/17/16 09:53 Dose: 25 mg Docusate Sodium (Colace) 100 mg PO BID [facility] Last Admin: 01/09/17 09:21 Dose: 100 mg Epoetin Tha (Procrit) 20,000 [place] [facility] [place] Last Admin: 01/08/17 16:44 Dose: 20,000 unit Ergocalciferol (Drisdol 50,000 Intl Units Cap) 1 cap PO WED [facility] Last Admin: 01/08/17 09:01 Dose: 1 cap Fluconazole (Diflucan) 100 mg PO DAILY [facility] Last Admin: 01/09/17 09:23 Dose: 100 mg Gabapentin (Neurontin) 300 mg PO TID [facility] Last Admin: 01/09/17 12:23 Dose: 300 mg Guaifenesin/Dextromethorphan (Robitussin Dm) 10 ml PO Q4 PRN PRN Reason: Cough Last Admin: 01/08/17 21:24 Dose: 10 ml Hydrocortisone (Anusol-Hc) 1 applic [place] BID PRN PRN Reason: Inflammation Hydromorphone HCl (Dilaudid) 1 mg IVP Q4H PRN PRN Reason: Pain, severe (8-10) Last Admin: 01/09/17 13:39 Dose: 1 mg Sodium Chloride (Sodium Chloride 0.45%) 500 mls @ 10 mls/hr IV .Q24H [facility] Last Admin: 01/08/17 16:37 Dose: 10 mls/hr Daptomycin 650 mg/ Sodium (Chloride) 100 mls @ 100 mls/hr [place]PB [facility] [place] Stop: 01/15/17 09:59 Last Admin: 01/08/17 20:10 Dose: 100 mls/hr Ceftazidime/Avibactam 0.94 gm/ (Sodium Chloride) 100 mls @ 50 mls/hr IV QOTHERDAY@2200 [facility] Last Admin: 01/08/17 21:11 Dose: 50 mls/hr Gentamicin Sulfate/Sodium Chloride (Gentamicin 100mg/100ml Ns) 100 mg in 100 mls @ 100 mls/hr IVPB [facility] [place] Last Admin: 01/08/17 23:44 Dose: 100 mls/hr Levalbuterol HCl (Xopenex) 0.63 mg INH RQ8 PRN PRN Reason: Shortness of Breath Metoprolol Tartrate (Lopressor) 25 mg PO Q12 [facility] Last Admin: 01/09/17 09:21 Dose: 25 mg Nystatin (Nystop Topical Powder) 1 applic TOP BID [facility] Last Admin: 01/09/17 09:20 Dose: 1 applic Ondansetron HCl (Zofran Inj) 4 mg IVP Q6 PRN PRN Reason: Nausea/Vomiting Last Admin: 09/19/16 10:26 Dose: 4 mg Pantoprazole Sodium (Protonix Ec Tab) 40 mg PO DAILY [facility] Last Admin: 01/09/17 09:22 Dose: 40 mg Repaglinide (Prandin) 0.5 mg PO TIDAC [facility] Last Admin: 01/09/17 12:23 Dose: 0.5 mg Sennosides (Senokot Tab) 25.8 mg PO HS [facility] Last Admin: 01/08/17 21:25 Dose: 25.8 mg Sevelamer HCl (Renagel) 1,600 mg PO TIDWM [facility] Last Admin: 01/09/17 12:23 Dose: 1,600 mg Simethicone (Mylicon Chew Tab) 80 mg PO Q4H PRN PRN Reason: flatulence or "gassy feeling:" Last Admin: 01/07/17 16:57 Dose: 80 mg Topiramate (Topamax) 50 mg PO BID [facility] Last Admin: 01/09/17 09:24 Dose: 50 mg Vitamin B Complex/Vit C/Folic Acid (Nephro-Ajay) 1 tab PO DAILY [facility] Last Admin: 01/09/17 09:24 Dose: 1 tab - Labs Labs: 01/08/17 17:02 01/08/17 17:02 PT 15.3 Seconds (9.8-13.1) H 12/02/16 13:05 INR 1.4 (0.9-1.2) H 12/02/16 13:05 APTT 37.0 Seconds (25.6-37.1) 12/02/16 13:05 - Constitutional Appears: No Acute Distress - Head Exam Head Exam: NORMAL INSPECTION - Eye Exam Eye Exam: Normal appearance - ENT Exam ENT Exam: Mucous Membranes Moist - Neck Exam Neck Exam: Normal Inspection Additional comments: Right subclavia Permacath intact. - Respiratory Exam Respiratory Exam: Clear to Ausculation Bilateral, NORMAL BREATHING PATTERN Additional comments: Some increased secretions in large airways. - Cardiovascular Exam Cardiovascular Exam: REGULAR RHYTHM, +S1, +S2 - GI/Abdominal Exam GI & Abdominal Exam: Soft - Extremities Exam Additional comments: Dressings and wound vac in place RLE. L femoral vein PICC line intact. - Back Exam Back Exam: NORMAL INSPECTION - Neurological Exam Neurological Exam: Alert, CN II-XII Intact, Oriented x3 - Psychiatric Exam Psychiatric exam: Normal Affect, Normal Mood - Skin Skin Exam: Dry, Normal Color, Warm Assessment and Plan (1) Status post below knee amputation of right lower extremity Assessment & Plan: Slow progress - to continue present Rx and Tx. Await re-eval by surgeons tomorrow. Status: Acute (2) ESRD (end stage renal disease) on dialysis Status: Chronic (3) DM type 2 (diabetes mellitus, type 2) Status: Chronic (4) Coagulopathy Status: Chronic (5) Peripheral arterial occlusive disease Status: Chronic
--- NOTE | 2017-01-09 18:48 | PN ---
ENDO FOLLOWUP NOTE LOCATION: Room 661. This is a 46-year-old female with recent right below-knee amputation for underlying osteomyelitis and is now being followed closely for diabetic management. Her glycemic levels are fluctuating but much improved at this time, and the latest chemistry showed a BUN of 63, sodium 141, potassium 4.5, chloride 105, CO2 of 23, glucose 112 and creatinine 7.9. So at this time, we will continue the low-dose correction scale using Prandin given as 0.5 mg p.o. t.i.d. before meals. We will titrate incrementally as indicated to optimize metabolic control. We will follow and advise accordingly. Irene Ambrose MD
--- NOTE | 2017-01-09 21:03 | CP.PCM.PN ---
Subjective - Date & Time of Evaluation Date of Evaluation: 01/09/17 Time of Evaluation: 19:15 - Subjective Subjective: Patient is stable on Antibiotics and his BP and Pulse are stable on Metoprolol. She is receiving Hemodialysis and Yesterday she completed 4,000 ml of ultrafiltration. There is no seizures. She is slightly tired but is able to sit in her chair. BP Systolic is more adjusted and Pulse is down to 92 Objective - Vital Signs/Intake and Output Vital Signs (last 24 hours): Temp Pulse Resp BP Pulse Ox 98.5 F 93 H 20 93/51 L 93 L 01/09/17 16:26 01/09/17 16:26 01/09/17 16:26 01/09/17 16:26 01/09/17 16:26 - Medications Medications: Current Medications Acetaminophen (Tylenol 325mg Tab) 650 mg PO Q4 PRN PRN Reason: Fever >100.4 F Last Admin: 12/26/16 19:40 Dose: 650 mg Acetaminophen (Tylenol 325mg Tab) 650 mg PO Q4 PRN PRN Reason: Pain, moderate (4-7) Last Admin: 12/26/16 05:14 Dose: 650 mg Apixaban (Eliquis) 5 mg PO BID [facility] PRN Reason: Protocol Last Admin: 01/09/17 16:32 Dose: 5 mg Aspirin (Ecotrin) 81 mg PO DAILY [facility] Last Admin: 01/09/17 09:22 Dose: 81 mg Atorvastatin Calcium (Lipitor) 40 mg PO DAILY [facility] Last Admin: 01/09/17 09:24 Dose: 40 mg Calcium Carbonate (Oscal) 500 mg PO BIDWM [facility] Last Admin: 01/09/17 16:31 Dose: 500 mg Cinacalcet (Sensipar) 30 mg PO DAILY [facility] Last Admin: 01/09/17 09:24 Dose: 30 mg Collagenase (Santyl) 1 applic TOP DAILY [facility] Last Admin: 01/09/17 09:26 Dose: 1 applic Diphenhydramine HCl (Benadryl) 25 mg PO Q6 PRN PRN Reason: Itching / Pruritus Last Admin: 12/17/16 09:53 Dose: 25 mg Docusate Sodium (Colace) 100 mg PO BID [facility] Last Admin: 01/09/17 16:31 Dose: 100 mg Epoetin Tha (Procrit) 20,000 unit IV MWF [facility] Last Admin: 01/08/17 16:44 Dose: 20,000 unit Ergocalciferol (Drisdol 50,000 Intl Units Cap) 1 cap PO WED [facility] Last Admin: 01/08/17 09:01 Dose: 1 cap Fluconazole (Diflucan) 100 mg PO DAILY [facility] Last Admin: 01/09/17 09:23 Dose: 100 mg Gabapentin (Neurontin) 300 mg PO TID [facility] Last Admin: 01/09/17 16:30 Dose: 300 mg Guaifenesin/Dextromethorphan (Robitussin Dm) 10 ml PO Q4 PRN PRN Reason: Cough Last Admin: 01/08/17 21:24 Dose: 10 ml Hydrocortisone (Anusol-Hc) 1 applic [place] BID PRN PRN Reason: Inflammation Hydromorphone HCl (Dilaudid) 1 mg IVP Q4H PRN PRN Reason: Pain, severe (8-10) Last Admin: 01/09/17 18:06 Dose: 1 mg Sodium Chloride (Sodium Chloride 0.45%) 500 mls @ 10 mls/hr IV .Q24H [facility] Last Admin: 01/09/17 16:33 Dose: 10 mls/hr Daptomycin 650 mg/ Sodium (Chloride) 100 mls @ 100 mls/hr [place] [facility] [place] Stop: 01/15/17 09:59 Last Admin: 01/08/17 20:10 Dose: 100 mls/hr Ceftazidime/Avibactam 0.94 gm/ (Sodium Chloride) 100 mls @ 50 mls/hr IV QOTHERDAY@2200 [facility] Last Admin: 01/08/17 21:11 Dose: 50 mls/hr Gentamicin Sulfate/Sodium Chloride (Gentamicin 100mg/100ml Ns) 100 mg in 100 mls @ 100 mls/hr [place]PB [facility] [place] Last Admin: 01/08/17 23:44 Dose: 100 mls/hr Levalbuterol HCl (Xopenex) 0.63 mg INH RQ8 PRN PRN Reason: Shortness of Breath Metoprolol Tartrate (Lopressor) 25 mg PO Q12 [facility] Last Admin: 01/09/17 09:21 Dose: 25 mg Nystatin (Nystop Topical Powder) 1 applic TOP BID [facility] Last Admin: 01/09/17 16:30 Dose: 1 applic Ondansetron HCl (Zofran Inj) 4 mg IVP Q6 PRN PRN Reason: Nausea/Vomiting Last Admin: 09/19/16 10:26 Dose: 4 mg Pantoprazole Sodium (Protonix Ec Tab) 40 mg PO DAILY [facility] Last Admin: 01/09/17 09:22 Dose: 40 mg Repaglinide (Prandin) 0.5 mg PO TIDAC [facility] Last Admin: 01/09/17 16:31 Dose: 0.5 mg Sennosides (Senokot Tab) 25.8 mg PO HS [facility] Last Admin: 01/08/17 21:25 Dose: 25.8 mg Sevelamer HCl (Renagel) 1,600 mg PO TIDWM [facility] Last Admin: 01/09/17 16:31 Dose: 1,600 mg Simethicone (Mylicon Chew Tab) 80 mg PO Q4H PRN PRN Reason: flatulence or "gassy feeling:" Last Admin: 01/07/17 16:57 Dose: 80 mg Topiramate (Topamax) 50 mg PO BID [facility] Last Admin: 01/09/17 16:32 Dose: 50 mg Vitamin B Complex/Vit C/Folic Acid (Nephro-Ajay) 1 tab PO DAILY [facility] Last Admin: 01/09/17 09:24 Dose: 1 tab - Labs Labs: 01/08/17 17:02 01/08/17 17:02 PT 15.3 Seconds (9.8-13.1) H 12/02/16 13:05 INR 1.4 (0.9-1.2) H 12/02/16 13:05 APTT 37.0 Seconds (25.6-37.1) 12/02/16 13:05 Assessment and Plan (1) Diabetes Status: Chronic (2) ESRD (end stage renal disease) Status: Chronic (3) Cellulitis of leg Status: Chronic (4) Hyperlipidemia Status: Chronic (5) Back pain Status: Acute (6) Bacteremia due to Gram-negative bacteria Status: Acute (7) Diabetes mellitus type 2 with peripheral artery disease Status: Chronic (8) PVD (peripheral vascular disease) Status: Chronic (9) Osteomyelitis of right leg Status: Acute
[2017-01-09] MEDS: guaiFENesin DM 200 mg-20 mg/10 ml UD PO PRN (22:02)
[2017-01-10] MEDS: Multivitamin Vitamin B Complex (Nephro-Vite) Tab PO SCH (10:11)
[2017-01-10] MEDS: Pantoprazole 40 mg EC Tab PO SCH (10:12)
--- NOTE | 2017-01-10 11:02 | CP.PCM.PN ---
Subjective - Date & Time of Evaluation Date of Evaluation: 01/10/17 Time of Evaluation: 11:00 - Subjective Subjective: no complains o/n Objective - Vital Signs/Intake and Output Vital Signs (last 24 hours): Temp Pulse Resp BP Pulse Ox 97.7 F 88 20 132/72 94 L 01/10/17 08:42 01/10/17 10:10 01/10/17 08:42 01/10/17 10:10 01/10/17 08:42 - Medications Medications: Current Medications Acetaminophen (Tylenol 325mg Tab) 650 mg PO Q4 PRN PRN Reason: Fever >100.4 F Last Admin: 12/26/16 19:40 Dose: 650 mg Acetaminophen (Tylenol 325mg Tab) 650 mg PO Q4 PRN PRN Reason: Pain, moderate (4-7) Last Admin: 12/26/16 05:14 Dose: 650 mg Apixaban (Eliquis) 5 mg PO BID [facility] PRN Reason: Protocol Last Admin: 01/10/17 10:09 Dose: 5 mg Aspirin (Ecotrin) 81 mg PO DAILY [facility] Last Admin: 01/10/17 10:10 Dose: 81 mg Atorvastatin Calcium (Lipitor) 40 mg PO DAILY [facility] Last Admin: 01/10/17 10:10 Dose: 40 mg Calcium Carbonate (Oscal) 500 mg PO BIDWM [facility] Last Admin: 01/10/17 10:12 Dose: 500 mg Cinacalcet (Sensipar) 30 mg PO DAILY [facility] Last Admin: 01/10/17 10:13 Dose: 30 mg Collagenase (Santyl) 1 applic TOP DAILY [facility] Last Admin: 01/09/17 09:26 Dose: 1 applic Diphenhydramine HCl (Benadryl) 25 mg PO Q6 PRN PRN Reason: Itching / Pruritus Last Admin: 12/17/16 09:53 Dose: 25 mg Docusate Sodium (Colace) 100 mg PO BID [facility] Last Admin: 01/10/17 10:08 Dose: 100 mg Epoetin Tha (Procrit) 20,000 unit IV MWF [facility] Last Admin: 01/08/17 16:44 Dose: 20,000 unit Ergocalciferol (Drisdol 50,000 Intl Units Cap) 1 cap PO WED [facility] Last Admin: 01/08/17 09:01 Dose: 1 cap Fluconazole (Diflucan) 100 mg PO DAILY [facility] Last Admin: 01/10/17 10:09 Dose: 100 mg Gabapentin (Neurontin) 300 mg PO TID [facility] Last Admin: 01/10/17 10:11 Dose: 300 mg Guaifenesin/Dextromethorphan (Robitussin Dm) 10 ml PO Q4 PRN PRN Reason: Cough Last Admin: 01/09/17 22:02 Dose: 10 ml Hydrocortisone (Anusol-Hc) 1 applic [place] BID PRN PRN Reason: Inflammation Hydromorphone HCl (Dilaudid) 1 mg IVP Q4H PRN PRN Reason: Pain, severe (8-10) Last Admin: 01/10/17 10:14 Dose: 1 mg Sodium Chloride (Sodium Chloride 0.45%) 500 mls @ 10 mls/hr IV .Q24H [facility] Last Admin: 01/09/17 16:33 Dose: 10 mls/hr Daptomycin 650 mg/ Sodium (Chloride) 100 mls @ 100 mls/hr [place] [facility] [place]: 01/15/17 09:59 Last Admin: 01/08/17 20:10 Dose: 100 mls/hr Ceftazidime/Avibactam 0.94 gm/ (Sodium Chloride) 100 mls @ 50 mls/hr IV QOTHERDAY@2200 [facility] Last Admin: 01/08/17 21:11 Dose: 50 mls/hr Gentamicin Sulfate/Sodium Chloride (Gentamicin 100mg/100ml Ns) 100 mg in 100 mls @ 100 mls/hr [place] [facility] [place] Admin: 01/08/17 23:44 Dose: 100 mls/hr Levalbuterol HCl (Xopenex) 0.63 mg INH RQ8 PRN PRN Reason: Shortness of Breath Metoprolol Tartrate (Lopressor) 25 mg PO Q12 [facility] Last Admin: 01/10/17 10:10 Dose: 25 mg Nystatin (Nystop Topical Powder) 1 applic TOP BID [facility] Last Admin: 01/10/17 10:19 Dose: Not Given Ondansetron HCl (Zofran Inj) 4 mg IVP Q6 PRN PRN Reason: Nausea/Vomiting Last Admin: 09/19/16 10:26 Dose: 4 mg Pantoprazole Sodium (Protonix Ec Tab) 40 mg PO DAILY [facility] Last Admin: 01/10/17 10:12 Dose: 40 mg Repaglinide (Prandin) 0.5 mg PO TIDAC [facility] Last Admin: 01/10/17 07:30 Dose: 0.5 mg Sennosides (Senokot Tab) 25.8 mg PO HS [facility] Last Admin: 01/09/17 22:02 Dose: 25.8 mg Sevelamer HCl (Renagel) 1,600 mg PO TIDWM [facility] Last Admin: 01/10/17 09:00 Dose: 1,600 mg Simethicone (Mylicon Chew Tab) 80 mg PO Q4H PRN PRN Reason: flatulence or "gassy feeling:" Last Admin: 01/07/17 16:57 Dose: 80 mg Topiramate (Topamax) 50 mg PO BID [facility] Last Admin: 01/10/17 10:13 Dose: 50 mg Vitamin B Complex/Vit C/Folic Acid (Nephro-Ajay) 1 tab PO DAILY [facility] Last Admin: 01/10/17 10:11 Dose: 1 tab - Labs Labs: 01/08/17 17:02 01/08/17 17:02 PT 15.3 Seconds (9.8-13.1) H 12/02/16 13:05 INR 1.4 (0.9-1.2) H 12/02/16 13:05 APTT 37.0 Seconds (25.6-37.1) 12/02/16 13:05 - Constitutional Appears: Non-toxic - Head Exam Head Exam: ATRAUMATIC - Eye Exam Eye Exam: Normal appearance - ENT Exam ENT Exam: Normal Exam, TM's Normal Bilaterally - Neck Exam Neck Exam: Normal Inspection - Respiratory Exam Respiratory Exam: NORMAL BREATHING PATTERN - Cardiovascular Exam Cardiovascular Exam: +S1, +S2 - GI/Abdominal Exam GI & Abdominal Exam: Normal Bowel Sounds - Extremities Exam Additional comments: wound vac RLE - Neurological Exam Neurological Exam: Alert, Oriented x3 - Psychiatric Exam Psychiatric exam: Normal Affect - Skin Skin Exam: Normal Color Assessment and Plan - Assessment and Plan (Free Text) Assessment: ESRD / PAD/ HTN/ ANemia/ Secondary hyperpara plan: HD MWF bp acceptable on epo will recheck pth if still depressed , will d/c sensipar - currently off calcitriol gent high last week - recc discuss adjustment w/ id
--- NOTE | 2017-01-10 13:46 | PN ---
ENDO FOLLOWUP NOTE LOCATION: Room 661. This is a 46-year-old female with known history of type 2 diabetes, currently with near optimal metabolic control on just a very low dose oral hypoglycemic drug therapy as given. Her glucose values have ranged from 68 to 79 and 112 mg/dL. The latest chemistry showed a BUN of 63, sodium 141, potassium 4.5, chloride 105, CO2 of 23, glucose 112, and creatinine 7.9. So at this time, we will continue the same low-dose oral hypoglycemic drug therapy as given with Prandin given as 0.5 mg p.o. t.i.d. before meals as ordered. She has ongoing IV antibiotics for underlying severe osteomyelitis of the right below-knee amputation stump area. We will obtain serial chemistries and supplement accordingly as needed. We will follow. Irene Ambrose MD
[2017-01-10] MEDS: Santyl Collagenase OINTMENT TOP SCH (14:00)
--- NOTE | 2017-01-10 17:02 | CP.PCM.PN ---
Subjective - Date & Time of Evaluation Date of Evaluation: 01/10/17 Time of Evaluation: 16:56 - Subjective Subjective: Wound vac R BK site was changed today by Richard Nalis RN. The surgical wound is granulating in extremely well such that the wound is both less deep and less wide. The patellar wound is also healing, but needs ongoing chemical debridement with Lazaro. Patient continues on 3 iv and 1 po antibiotic. No fevers. Dr. Lemon is aware of the gentamicin trough level, which (depending on which reference range we use) is only mildly above the desired level. Will repeat the gentamicin level in a few days when other blood work is repeated. No cough today. No dyspnea. Has not needed Xopenex aerosol treatments. No other problems. Hypertension and tachycardia controlled on low dose metoprolol tartrate Objective - Vital Signs/Intake and Output Vital Signs (last 24 hours): Temp Pulse Resp BP Pulse Ox 98.4 F 93 H 20 101/62 97 01/10/17 16:43 01/10/17 16:43 01/10/17 16:43 01/10/17 16:43 01/10/17 16:43 - Medications Medications: Current Medications Acetaminophen (Tylenol 325mg Tab) 650 mg PO Q4 PRN PRN Reason: Fever >100.4 F Last Admin: 12/26/16 19:40 Dose: 650 mg Acetaminophen (Tylenol 325mg Tab) 650 mg PO Q4 PRN PRN Reason: Pain, moderate (4-7) Last Admin: 12/26/16 05:14 Dose: 650 mg Apixaban (Eliquis) 5 mg PO BID [facility] PRN Reason: Protocol Last Admin: 01/10/17 10:09 Dose: 5 mg Aspirin (Ecotrin) 81 mg PO DAILY [facility] Last Admin: 01/10/17 10:10 Dose: 81 mg Atorvastatin Calcium (Lipitor) 40 mg PO DAILY [facility] Last Admin: 01/10/17 10:10 Dose: 40 mg Calcium Carbonate (Oscal) 500 mg PO BIDWM [facility] Last Admin: 01/10/17 10:12 Dose: 500 mg Cinacalcet (Sensipar) 30 mg PO DAILY [facility] Last Admin: 01/10/17 10:13 Dose: 30 mg Collagenase (Santyl) 1 applic TOP DAILY [facility] Last Admin: 01/09/17 09:26 Dose: 1 applic Diphenhydramine HCl (Benadryl) 25 mg PO Q6 PRN PRN Reason: Itching / Pruritus Last Admin: 12/17/16 09:53 Dose: 25 mg Docusate Sodium (Colace) 100 mg PO BID [facility] Last Admin: 01/10/17 10:08 Dose: 100 mg Epoetin Tha (Procrit) 20,000 unit [place] [facility] [place] Last Admin: 01/08/17 16:44 Dose: 20,000 unit Ergocalciferol (Drisdol 50,000 Intl Units Cap) 1 cap PO WED [facility] Last Admin: 01/08/17 09:01 Dose: 1 cap Fluconazole (Diflucan) 100 mg PO DAILY [facility] Last Admin: 01/10/17 10:09 Dose: 100 mg Gabapentin (Neurontin) 300 mg PO TID [facility] Last Admin: 01/10/17 12:46 Dose: 300 mg Guaifenesin/Dextromethorphan (Robitussin Dm) 10 ml PO Q4 PRN PRN Reason: Cough Last Admin: 01/09/17 22:02 Dose: 10 ml Hydrocortisone (Anusol-Hc) 1 applic [place] BID PRN PRN Reason: Inflammation Hydromorphone HCl (Dilaudid) 1 mg IVP Q4H PRN PRN Reason: Pain, severe (8-10) Last Admin: 01/10/17 14:11 Dose: 1 mg Sodium Chloride (Sodium Chloride 0.45%) 500 mls @ 10 mls/hr IV .Q24H [facility] Last Admin: 01/09/17 16:33 Dose: 10 mls/hr Daptomycin 650 mg/ Sodium (Chloride) 100 mls @ 100 mls/hr IVPB [facility] [place] Stop: 01/15/17 09:59 Last Admin: 01/08/17 20:10 Dose: 100 mls/hr Ceftazidime/Avibactam 0.94 gm/ (Sodium Chloride) 100 mls @ 50 mls/hr IV QOTHERDAY@2200 [facility] Last Admin: 01/08/17 21:11 Dose: 50 mls/hr Gentamicin Sulfate/Sodium Chloride (Gentamicin 100mg/100ml Ns) 100 mg in 100 mls @ 100 mls/hr IVPB [facility] [place] Last Admin: 01/08/17 23:44 Dose: 100 mls/hr Levalbuterol HCl (Xopenex) 0.63 mg INH RQ8 PRN PRN Reason: Shortness of Breath Metoprolol Tartrate (Lopressor) 25 mg PO Q12 [facility] Last Admin: 01/10/17 10:10 Dose: 25 mg Nystatin (Nystop Topical Powder) 1 applic TOP BID [facility] Last Admin: 01/10/17 10:19 Dose: Not Given Ondansetron HCl (Zofran Inj) 4 mg IVP Q6 PRN PRN Reason: Nausea/Vomiting Last Admin: 09/19/16 10:26 Dose: 4 mg Pantoprazole Sodium (Protonix Ec Tab) 40 mg PO DAILY [facility] Last Admin: 01/10/17 10:12 Dose: 40 mg Repaglinide (Prandin) 0.5 mg PO TIDAC [facility] Last Admin: 01/10/17 12:46 Dose: 0.5 mg Sennosides (Senokot Tab) 25.8 mg PO HS [facility] Last Admin: 01/09/17 22:02 Dose: 25.8 mg Sevelamer HCl (Renagel) 1,600 mg PO TIDWM [facility] Last Admin: 01/10/17 12:46 Dose: 1,600 mg Simethicone (Mylicon Chew Tab) 80 mg PO Q4H PRN PRN Reason: flatulence or "gassy feeling:" Last Admin: 01/07/17 16:57 Dose: 80 mg Topiramate (Topamax) 50 mg PO BID [facility] Last Admin: 01/10/17 10:13 Dose: 50 mg Vitamin B Complex/Vit C/Folic Acid (Nephro-Ajay) 1 tab PO DAILY [facility] Last Admin: 01/10/17 10:11 Dose: 1 tab - Labs Labs: 01/08/17 17:02 01/08/17 17:02 PT 15.3 Seconds (9.8-13.1) H 12/02/16 13:05 INR 1.4 (0.9-1.2) H 12/02/16 13:05 APTT 37.0 Seconds (25.6-37.1) 12/02/16 13:05 - Constitutional Appears: No Acute Distress - Head Exam Head Exam: NORMAL INSPECTION - Eye Exam Eye Exam: Normal appearance - ENT Exam ENT Exam: Mucous Membranes Moist - Neck Exam Neck Exam: Normal Inspection - Respiratory Exam Respiratory Exam: Clear to Ausculation Bilateral, NORMAL BREATHING PATTERN - Cardiovascular Exam Cardiovascular Exam: REGULAR RHYTHM, +S1, +S2 - GI/Abdominal Exam GI & Abdominal Exam: Soft - Extremities Exam Additional comments: New BK wound vac dressing in place. Patellar also dressed. L residual lower limb and both hands warm and without lesions. L femoral vein PICC line intact. - Back Exam Back Exam: NORMAL INSPECTION - Neurological Exam Neurological Exam: Alert, CN II-XII Intact, Oriented x3 - Psychiatric Exam Psychiatric exam: Normal Affect, Normal Mood - Skin Skin Exam: Dry, Normal Color, Warm Assessment and Plan (1) Status post below knee amputation of right lower extremity Assessment & Plan: Patient is making excellent progress in wound healing - although she is not yet ready for acute rehab. We must continue the current antibiotic regimen, which seems to be working. Status: Acute (2) ESRD (end stage renal disease) on dialysis Status: Chronic (3) DM type 2 (diabetes mellitus, type 2) Status: Chronic (4) Coagulopathy Status: Chronic (5) Peripheral arterial occlusive disease Status: Chronic
[2017-01-10] MEDS: Gentamicin 100mg/100ml NS 100 MG/100 ML BAG IVPB SCH (17:16)
--- NOTE | 2017-01-11 | CP.PCM.PN ---
Subjective - Date & Time of Evaluation Date of Evaluation: 01/10/17 Time of Evaluation: 20:00 - Subjective Subjective: The wound is healing well. A new vacuum is placed to the wound end. She will need to have hearing tests later on due to aminoglycoside ( Gentamycin) use. Her Kidney function tests is performed as a routine, and her Creatinine is hig at 7 and BUN is at 48. Blood Glucose is adjusted. She is having regular hemodialysis for her ESRD. She has no seizures on Topamax. Objective - Vital Signs/Intake and Output Vital Signs (last 24 hours): Temp Pulse Resp BP Pulse Ox 98.4 F 92 H 20 134/72 97 01/10/17 17:00 01/10/17 22:23 01/10/17 16:43 01/10/17 22:23 01/10/17 16:43 - Medications Medications: Current Medications Acetaminophen (Tylenol 325mg Tab) 650 mg PO Q4 PRN PRN Reason: Fever >100.4 F Last Admin: 12/26/16 19:40 Dose: 650 mg Acetaminophen (Tylenol 325mg Tab) 650 mg PO Q4 PRN PRN Reason: Pain, moderate (4-7) Last Admin: 12/26/16 05:14 Dose: 650 mg Apixaban (Eliquis) 5 mg PO BID [facility] PRN Reason: Protocol Last Admin: 01/10/17 17:18 Dose: 5 mg Aspirin (Ecotrin) 81 mg PO DAILY [facility] Last Admin: 01/10/17 10:10 Dose: 81 mg Atorvastatin Calcium (Lipitor) 40 mg PO DAILY [facility] Last Admin: 01/10/17 10:10 Dose: 40 mg Calcium Carbonate (Oscal) 500 mg PO BIDWM [facility] Last Admin: 01/10/17 17:19 Dose: 500 mg Cinacalcet (Sensipar) 30 mg PO DAILY [facility] Last Admin: 01/10/17 10:13 Dose: 30 mg Collagenase (Santyl) 1 applic TOP DAILY [facility] Last Admin: 01/10/17 14:00 Dose: 1 applic Diphenhydramine HCl (Benadryl) 25 mg PO Q6 PRN PRN Reason: Itching / Pruritus Last Admin: 12/17/16 09:53 Dose: 25 mg Docusate Sodium (Colace) 100 mg PO BID [facility] Last Admin: 01/10/17 17:18 Dose: 100 mg Epoetin Tha (Procrit) 20,[address] [facility] [place] Admin: 01/08/17 16:44 Dose: 20,000 unit Ergocalciferol (Drisdol 50,000 Intl Units Cap) 1 cap PO WED [facility] Last Admin: 01/08/17 09:01 Dose: 1 cap Fluconazole (Diflucan) 100 mg PO DAILY [facility] Last Admin: 01/10/17 10:09 Dose: 100 mg Gabapentin (Neurontin) 300 mg PO TID [facility] Last Admin: 01/10/17 17:19 Dose: 300 mg Guaifenesin/Dextromethorphan (Robitussin Dm) 10 ml PO Q4 PRN PRN Reason: Cough Last Admin: 01/09/17 22:02 Dose: 10 ml Hydrocortisone (Anusol-Hc) 1 applic [place] BID PRN PRN Reason: Inflammation Hydromorphone HCl (Dilaudid) 1 mg IVP Q4H PRN PRN Reason: Pain, severe (8-10) Last Admin: 01/10/17 22:34 Dose: 1 mg Sodium Chloride (Sodium Chloride 0.45%) 500 mls @ 10 mls/hr IV .Q24H [facility] Last Admin: 01/09/17 16:33 Dose: 10 mls/hr Daptomycin 650 mg/ Sodium (Chloride) 100 mls @ 100 mls/hr IV[place] [facility] [place]: 01/15/17 09:59 Last Admin: 01/08/17 20:10 Dose: 100 mls/hr Ceftazidime/Avibactam 0.94 gm/ (Sodium Chloride) 100 mls @ 50 mls/hr IV QOTHERDAY@2200 [facility] Last Admin: 01/10/17 22:24 Dose: 50 mls/hr Gentamicin Sulfate/Sodium Chloride (Gentamicin 100mg/100ml Ns) 100 mg in 100 mls @ 100 mls/hr IVPB [facility] [place] Last Admin: 01/08/17 23:44 Dose: 100 mls/hr Levalbuterol HCl (Xopenex) 0.63 mg INH RQ8 PRN PRN Reason: Shortness of Breath Metoprolol Tartrate (Lopressor) 25 mg PO Q12 [facility] Last Admin: 01/10/17 22:23 Dose: 25 mg Nystatin (Nystop Topical Powder) 1 applic TOP BID [facility] Last Admin: 01/10/17 17:19 Dose: Not Given Ondansetron HCl (Zofran Inj) 4 mg IVP Q6 PRN PRN Reason: Nausea/Vomiting Last Admin: 09/19/16 10:26 Dose: 4 mg Pantoprazole Sodium (Protonix Ec Tab) 40 mg PO DAILY [facility] Last Admin: 01/10/17 10:12 Dose: 40 mg Repaglinide (Prandin) 0.5 mg PO TIDAC [facility] Last Admin: 01/10/17 17:19 Dose: 0.5 mg Sennosides (Senokot Tab) 25.8 mg PO HS [facility] Last Admin: 01/10/17 22:24 Dose: 25.8 mg Sevelamer HCl (Renagel) 1,600 mg PO TIDWM [facility] Last Admin: 01/10/17 17:19 Dose: 1,600 mg Simethicone (Mylicon Chew Tab) 80 mg PO Q4H PRN PRN Reason: flatulence or "gassy feeling:" Last Admin: 01/07/17 16:57 Dose: 80 mg Topiramate (Topamax) 50 mg PO BID [facility] Last Admin: 01/10/17 17:21 Dose: 50 mg Vitamin B Complex/Vit C/Folic Acid (Nephro-Ajay) 1 tab PO DAILY [facility] Last Admin: 01/10/17 10:11 Dose: 1 tab - Labs Labs: 01/08/17 17:02 01/08/17 17:02 PT 15.3 Seconds (9.8-13.1) H 12/02/16 13:05 INR 1.4 (0.9-1.2) H 12/02/16 13:05 APTT 37.0 Seconds (25.6-37.1) 12/02/16 13:05 Assessment and Plan (1) Diabetes Status: Chronic (2) ESRD (end stage renal disease) Status: Chronic (3) Cellulitis of leg Status: Chronic (4) Hyperlipidemia Status: Chronic (5) Back pain Status: Acute (6) Bacteremia due to Gram-negative bacteria Status: Acute (7) Diabetes mellitus type 2 with peripheral artery disease Status: Chronic (8) PVD (peripheral vascular disease) Status: Chronic (9) Osteomyelitis of right leg Status: Acute
[2017-01-11] MEDS: Epoetin Alfa 20000 UNIT/ML Inj IV SCH ×2 (09:47→10:16)
[2017-01-11] MEDS: Multivitamin Vitamin B Complex (Nephro-Vite) Tab PO SCH (09:49)
[2017-01-11] MEDS: Pantoprazole 40 mg EC Tab PO SCH (09:50)
[2017-01-11] MEDS: Santyl Collagenase OINTMENT TOP SCH (09:57)
[2017-01-11] MEDS ORDERED: Gentamicin 100mg/100ml NS 100 MG/100 ML BAG IVPB STA (14:23)
--- NOTE | 2017-01-11 16:39 | CP.PCM.PN ---
Subjective - Date & Time of Evaluation Date of Evaluation: 01/11/17 Time of Evaluation: 16:40 - Subjective Subjective: Patient is comfortable - just completed hemodialysis and is tired. No cough today. No fevers. Wound vac R BK site is intact and with no leaks and only scant drainage. R patellar wound needs to be debrided and Santyl applied. DM controlled. No bleeding or clotting. No GI symptoms. No seizures. Meds reviewed and renewed where necessary. Objective - Vital Signs/Intake and Output Vital Signs (last 24 hours): Temp Pulse Resp BP Pulse Ox 98.5 F 97 H 18 127/71 98 01/11/17 15:35 01/11/17 15:35 01/11/17 15:35 01/11/17 15:35 01/11/17 15:35 - Medications Medications: Current Medications Acetaminophen (Tylenol 325mg Tab) 650 mg PO Q4 PRN PRN Reason: Fever >100.4 F Last Admin: 12/26/16 19:40 Dose: 650 mg Acetaminophen (Tylenol 325mg Tab) 650 mg PO Q4 PRN PRN Reason: Pain, moderate (4-7) Last Admin: 12/26/16 05:14 Dose: 650 mg Apixaban (Eliquis) 5 mg PO BID [facility] PRN Reason: Protocol Last Admin: 01/11/17 09:49 Dose: 5 mg Aspirin (Ecotrin) 81 mg PO DAILY [facility] Last Admin: 01/11/17 09:49 Dose: 81 mg Atorvastatin Calcium (Lipitor) 40 mg PO DAILY [facility] Last Admin: 01/11/17 09:51 Dose: 40 mg Calcium Carbonate (Oscal) 500 mg PO BIDWM [facility] Last Admin: 01/11/17 09:49 Dose: 500 mg Collagenase (Santyl) 1 applic TOP DAILY [facility] Last Admin: 01/11/17 09:57 Dose: 1 applic Diphenhydramine HCl (Benadryl) 25 mg PO Q6 PRN PRN Reason: Itching / Pruritus Last Admin: 12/17/16 09:53 Dose: 25 mg Docusate Sodium (Colace) 100 mg PO BID [facility] Last Admin: 01/11/17 09:50 Dose: 100 mg Epoetin Tha (Procrit) 20,000 unit IV MWF [facility] Last Admin: 01/11/17 10:16 Dose: 20,000 unit Ergocalciferol (Drisdol 50,000 Intl Units Cap) 1 cap PO WED [facility] Last Admin: 01/08/17 09:01 Dose: 1 cap Fluconazole (Diflucan) 100 mg PO DAILY [facility] Last Admin: 01/11/17 09:50 Dose: 100 mg Gabapentin (Neurontin) 300 mg PO TID [facility] Last Admin: 01/11/17 09:50 Dose: 300 mg Guaifenesin/Dextromethorphan (Robitussin Dm) 10 ml PO Q4 PRN PRN Reason: Cough Last Admin: 01/09/17 22:02 Dose: 10 ml Hydrocortisone (Anusol-Hc) 1 applic [place] BID PRN PRN Reason: Inflammation Hydromorphone HCl (Dilaudid) 1 mg IVP Q4H PRN PRN Reason: Pain, severe (8-10) Last Admin: 01/11/17 15:40 Dose: 1 mg Sodium Chloride (Sodium Chloride 0.45%) 500 mls @ 10 mls/hr IV .Q24H [facility] Last Admin: 01/09/17 16:33 Dose: 10 mls/hr Daptomycin 650 mg/ Sodium (Chloride) 100 mls @ 100 mls/hr [place] [facility] [place]: 01/15/17 09:59 Last Admin: 01/08/17 20:10 Dose: 100 mls/hr Ceftazidime/Avibactam 0.94 gm/ (Sodium Chloride) 100 mls @ 50 mls/hr IV QOTHERDAY@2200 [facility] Last Admin: 01/10/17 22:24 Dose: 50 mls/hr Gentamicin Sulfate/Sodium Chloride (Gentamicin 100mg/100ml Ns) 100 mg in 100 mls @ 100 mls/hr [place] [facility] [place] Last Admin: 01/08/17 23:44 Dose: 100 mls/hr Levalbuterol HCl (Xopenex) 0.63 mg INH RQ8 PRN PRN Reason: Shortness of Breath Metoprolol Tartrate (Lopressor) 25 mg PO Q12 [facility] Last Admin: 01/11/17 09:51 Dose: Not Given Nystatin (Nystop Topical Powder) 1 applic TOP BID [facility] Last Admin: 01/11/17 09:53 Dose: 1 applic Ondansetron HCl (Zofran Inj) 4 mg IVP Q6 PRN PRN Reason: Nausea/Vomiting Last Admin: 09/19/16 10:26 Dose: 4 mg Pantoprazole Sodium (Protonix Ec Tab) 40 mg PO DAILY [facility] Last Admin: 01/11/17 09:50 Dose: 40 mg Repaglinide (Prandin) 0.5 mg PO TIDAC [facility] Last Admin: 01/11/17 11:40 Dose: 0.5 mg Sennosides (Senokot Tab) 25.8 mg PO HS [facility] Last Admin: 01/10/17 22:24 Dose: 25.8 mg Sevelamer HCl (Renagel) 1,600 mg PO TIDWM [facility] Last Admin: 01/11/17 09:48 Dose: 1,600 mg Simethicone (Mylicon Chew Tab) 80 mg PO Q4H PRN PRN Reason: flatulence or "gassy feeling:" Last Admin: 01/07/17 16:57 Dose: 80 mg Topiramate (Topamax) 50 mg PO BID [facility] Last Admin: 01/11/17 09:51 Dose: 50 mg Vitamin B Complex/Vit C/Folic Acid (Nephro-Ajay) 1 tab PO DAILY [facility] Last Admin: 01/11/17 09:49 Dose: 1 tab - Labs Labs: 01/08/17 17:02 01/08/17 17:02 PT 15.3 Seconds (9.8-13.1) H 12/02/16 13:05 INR 1.4 (0.9-1.2) H 12/02/16 13:05 APTT 37.0 Seconds (25.6-37.1) 12/02/16 13:05 - Head Exam Head Exam: NORMAL INSPECTION - Eye Exam Eye Exam: Normal appearance - ENT Exam ENT Exam: Mucous Membranes Moist - Neck Exam Neck Exam: Normal Inspection - Respiratory Exam Respiratory Exam: Clear to Ausculation Bilateral, NORMAL BREATHING PATTERN - Cardiovascular Exam Cardiovascular Exam: +S1, +S2 - GI/Abdominal Exam GI & Abdominal Exam: Soft, Normal Bowel Sounds - Extremities Exam Additional comments: As per subjective, R BK dressings intact. - Back Exam Back Exam: NORMAL INSPECTION - Neurological Exam Neurological Exam: Alert, Oriented x3 - Psychiatric Exam Psychiatric exam: Normal Affect, Normal Mood - Skin Skin Exam: Dry, Normal Color, Warm Assessment and Plan (1) Status post below knee amputation of right lower extremity Assessment & Plan: Making progress. Continue same Tx and Rx. Status: Acute (2) ESRD (end stage renal disease) on dialysis Status: Chronic (3) DM type 2 (diabetes mellitus, type 2) Status: Chronic (4) Coagulopathy Status: Chronic (5) Peripheral arterial occlusive disease Status: Chronic
--- NOTE | 2017-01-11 17:17 | CP.PCM.PN ---
Subjective - Date & Time of Evaluation Date of Evaluation: 01/11/17 Time of Evaluation: 17:15 - Subjective Subjective: Follow up Nephrology Consultation Note Assessment/Plan: End stage renal disease on hemodialysis (MWF) via permacath: Will plan for dialysis friday. she had HD today. continue with Nephrovite 1 tab/day. Anemia: PRBC as needed. On MARTHA as Epogen 20,000 with HD. last Hb 11.2. if remains in this range then will decrease dose of epogen Hyperphosphatemia: continue with current meds as renagel 1600 TID, last phos 4.8 Secondary hyperparathyroidism with Vit D Deficiency: hold sensipar Last PTH level 63 Hypertension controlled: BP mostly on low side Glycemic control, Dialysis consistent diet Further work up/management as per primary team. 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 Dose meds/antibiotics for ESRD status. Avoid fleets enema/magnesium based laxatives. Thanks for allowing me to participate in care of your patient. Will follow patient with you. Please call if any Qs Dr Hernan Andino Office: [phone] Subjective: Noted events overnight. Denies chest pain, palpitation, shortness of breath. 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 obese Vitals reviewed and noted as below Lungs: Normal respiratory rate/effort. Breath sounds bilateral equal and clear Heart: Normal rate. s1s2 normal. No rub or gallop. Extremities: s/p Rt BKA, hx of left BKA. Neurological: Patient is alert, awake and oriented to person, place and time. No focal deficit. Strength bilateral appropriate and equal Skin: Warm and dry. Normal turgor. No rash. Palpitation: Normal elasticity for age Abdomen: Abdomen is soft. Bowel sounds +. There is no abdominal tenderness, no guarding/rigidity or organomegaly. she is obese : kidney or bladder not palpable Access: permacath Labs/imaging reviewed. Past medical history, past surgical history, family history, social history, allergy reviewed Objective - Vital Signs/Intake and Output Vital Signs (last 24 hours): Temp Pulse Resp BP Pulse Ox 98.5 F 97 H 18 127/71 98 01/11/17 15:35 01/11/17 15:35 01/11/17 15:35 01/11/17 15:35 01/11/17 15:35 - Medications Medications: Current Medications Acetaminophen (Tylenol 325mg Tab) 650 mg PO Q4 PRN PRN Reason: Fever >100.4 F Last Admin: 12/26/16 19:40 Dose: 650 mg Acetaminophen (Tylenol 325mg Tab) 650 mg PO Q4 PRN PRN Reason: Pain, moderate (4-7) Last Admin: 12/26/16 05:14 Dose: 650 mg Apixaban (Eliquis) 5 mg PO BID [facility] PRN Reason: Protocol Last Admin: 01/11/17 16:35 Dose: 5 mg Aspirin (Ecotrin) 81 mg PO DAILY [facility] Last Admin: 01/11/17 09:49 Dose: 81 mg Atorvastatin Calcium (Lipitor) 40 mg PO DAILY [facility] Last Admin: 01/11/17 09:51 Dose: 40 mg Calcium Carbonate (Oscal) 500 mg PO BIDWM [facility] Last Admin: 01/11/17 16:37 Dose: 500 mg Collagenase (Santyl) 1 applic TOP DAILY [facility] Last Admin: 01/11/17 09:57 Dose: 1 applic Diphenhydramine HCl (Benadryl) 25 mg PO Q6 PRN PRN Reason: Itching / Pruritus Last Admin: 12/17/16 09:53 Dose: 25 mg Docusate Sodium (Colace) 100 mg PO BID [facility] Last Admin: 01/11/17 16:36 Dose: 100 mg Epoetin Tha (Procrit) 20,000 unit IV MWF [facility] Last Admin: 01/11/17 10:16 Dose: 20,000 unit Ergocalciferol (Drisdol 50,000 Intl Units Cap) 1 cap PO WED [facility] Last Admin: 01/08/17 09:01 Dose: 1 cap Fluconazole (Diflucan) 100 mg PO DAILY [facility] Last Admin: 01/11/17 09:50 Dose: 100 mg Gabapentin (Neurontin) 300 mg PO TID [facility] Last Admin: 01/11/17 13:55 Dose: 300 mg Guaifenesin/Dextromethorphan (Robitussin Dm) 10 ml PO Q4 PRN PRN Reason: Cough Last Admin: 01/09/17 22:02 Dose: 10 ml Hydrocortisone (Anusol-Hc) 1 applic [place] BID PRN PRN Reason: Inflammation Hydromorphone HCl (Dilaudid) 1 mg IVP Q4H PRN PRN Reason: Pain, severe (8-10) Last Admin: 01/11/17 15:40 Dose: 1 mg Sodium Chloride (Sodium Chloride 0.45%) 500 mls @ 10 mls/hr IV .Q24H [facility] Last Admin: 01/11/17 16:42 Dose: 10 mls/hr Daptomycin 650 mg/ Sodium (Chloride) 100 mls @ 100 mls/hr IVPB [facility] [place] Stop: 01/15/17 09:59 Last Admin: 01/08/17 20:10 Dose: 100 mls/hr Ceftazidime/Avibactam 0.94 gm/ (Sodium Chloride) 100 mls @ 50 mls/hr IV QOTHERDAY@2200 [facility] Last Admin: 01/10/17 22:24 Dose: 50 mls/hr Gentamicin Sulfate/Sodium Chloride (Gentamicin 100mg/100ml Ns) 100 mg in 100 mls @ 100 mls/hr IVPB [facility] [place] Last Admin: 01/08/17 23:44 Dose: 100 mls/hr Levalbuterol HCl (Xopenex) 0.63 mg INH RQ8 PRN PRN Reason: Shortness of Breath Metoprolol Tartrate (Lopressor) 25 mg PO Q12 [facility] Last Admin: 01/11/17 09:51 Dose: Not Given Nystatin (Nystop Topical Powder) 1 applic TOP BID [facility] Last Admin: 01/11/17 16:35 Dose: 1 applic Ondansetron HCl (Zofran Inj) 4 mg IVP Q6 PRN PRN Reason: Nausea/Vomiting Last Admin: 09/19/16 10:26 Dose: 4 mg Pantoprazole Sodium (Protonix Ec Tab) 40 mg PO DAILY [facility] Last Admin: 01/11/17 09:50 Dose: 40 mg Repaglinide (Prandin) 0.5 mg PO TIDAC [facility] Last Admin: 01/11/17 11:40 Dose: 0.5 mg Sennosides (Senokot Tab) 25.8 mg PO HS [facility] Last Admin: 01/10/17 22:24 Dose: 25.8 mg Sevelamer HCl (Renagel) 1,600 mg PO TIDWM [facility] Last Admin: 01/11/17 13:15 Dose: 1,600 mg Simethicone (Mylicon Chew Tab) 80 mg PO Q4H PRN PRN Reason: flatulence or "gassy feeling:" Last Admin: 01/07/17 16:57 Dose: 80 mg Topiramate (Topamax) 50 mg PO BID [facility] Last Admin: 01/11/17 16:37 Dose: 50 mg Vitamin B Complex/Vit C/Folic Acid (Nephro-Ajay) 1 tab PO DAILY [facility] Last Admin: 01/11/17 09:49 Dose: 1 tab - Labs Labs: 01/08/17 17:02 01/08/17 17:02 PT 15.3 Seconds (9.8-13.1) H 12/02/16 13:05 INR 1.4 (0.9-1.2) H 12/02/16 13:05 APTT 37.0 Seconds (25.6-37.1) 12/02/16 13:05
--- NOTE | 2017-01-11 20:09 | CP.PCM.PN ---
Subjective - Date & Time of Evaluation Date of Evaluation: 01/11/17 Time of Evaluation: 16:30 - Subjective Subjective: Right BKA wound care in progress. She is clinically stable. Receiving Antibiotics for her Klebsiella sepsis that looks under control. No seizures are reported. She is on Topamax 50 mg BID Objective - Vital Signs/Intake and Output Vital Signs (last 24 hours): Temp Pulse Resp BP Pulse Ox 98.5 F 97 H 18 127/71 98 01/11/17 17:00 01/11/17 17:00 01/11/17 15:35 01/11/17 17:00 01/11/17 15:35 - Medications Medications: Current Medications Acetaminophen (Tylenol 325mg Tab) 650 mg PO Q4 PRN PRN Reason: Fever >100.4 F Last Admin: 12/26/16 19:40 Dose: 650 mg Acetaminophen (Tylenol 325mg Tab) 650 mg PO Q4 PRN PRN Reason: Pain, moderate (4-7) Last Admin: 12/26/16 05:14 Dose: 650 mg Apixaban (Eliquis) 5 mg PO BID [facility] PRN Reason: Protocol Last Admin: 01/11/17 16:35 Dose: 5 mg Aspirin (Ecotrin) 81 mg PO DAILY [facility] Last Admin: 01/11/17 09:49 Dose: 81 mg Atorvastatin Calcium (Lipitor) 40 mg PO DAILY [facility] Last Admin: 01/11/17 09:51 Dose: 40 mg Calcium Carbonate (Oscal) 500 mg PO BIDWM [facility] Last Admin: 01/11/17 16:37 Dose: 500 mg Collagenase (Santyl) 1 applic TOP DAILY [facility] Last Admin: 01/11/17 09:57 Dose: 1 applic Diphenhydramine HCl (Benadryl) 25 mg PO Q6 PRN PRN Reason: Itching / Pruritus Last Admin: 12/17/16 09:53 Dose: 25 mg Docusate Sodium (Colace) 100 mg PO BID [facility] Last Admin: 01/11/17 16:36 Dose: 100 mg Epoetin Tha (Procrit) 20,000 unit IV MWF [facility] Last Admin: 01/11/17 10:16 Dose: 20,000 unit Ergocalciferol (Drisdol 50,000 Intl Units Cap) 1 cap PO WED [facility] Last Admin: 01/08/17 09:01 Dose: 1 cap Fluconazole (Diflucan) 100 mg PO DAILY [facility] Last Admin: 01/11/17 09:50 Dose: 100 mg Gabapentin (Neurontin) 300 mg PO TID [facility] Last Admin: 01/11/17 17:45 Dose: 300 mg Guaifenesin/Dextromethorphan (Robitussin Dm) 10 ml PO Q4 PRN PRN Reason: Cough Last Admin: 01/09/17 22:02 Dose: 10 ml Hydrocortisone (Anusol-Hc) 1 applic [place] BID PRN PRN Reason: Inflammation Hydromorphone HCl (Dilaudid) 1 mg IVP Q4H PRN PRN Reason: Pain, severe (8-10) Last Admin: 01/11/17 15:40 Dose: 1 mg Sodium Chloride (Sodium Chloride 0.45%) 500 mls @ 10 mls/hr IV .Q24H [facility] Last Admin: 01/11/17 16:42 Dose: 10 mls/hr Daptomycin 650 mg/ Sodium (Chloride) 100 mls @ 100 mls/hr IVPB [facility] Stop: 01/15/17 09:59 Last Admin: 01/08/17 20:10 Dose: 100 mls/hr Ceftazidime/Avibactam 0.94 gm/ (Sodium Chloride) 100 mls @ 50 mls/hr IV QOTHERDAY@2200 [facility] Last Admin: 01/10/17 22:24 Dose: 50 mls/hr Gentamicin Sulfate/Sodium Chloride (Gentamicin 100mg/100ml Ns) 100 mg in 100 mls @ 100 mls/hr IVPB [facility] Last Admin: 01/08/17 23:44 Dose: 100 mls/hr Levalbuterol HCl (Xopenex) 0.63 mg INH RQ8 PRN PRN Reason: Shortness of Breath Metoprolol Tartrate (Lopressor) 25 mg PO Q12 [facility] Last Admin: 01/11/17 09:51 Dose: Not Given Nystatin (Nystop Topical Powder) 1 applic TOP BID [facility] Last Admin: 01/11/17 16:35 Dose: 1 applic Ondansetron HCl (Zofran Inj) 4 mg IVP Q6 PRN PRN Reason: Nausea/Vomiting Last Admin: 09/19/16 10:26 Dose: 4 mg Pantoprazole Sodium (Protonix Ec Tab) 40 mg PO DAILY [facility] Last Admin: 01/11/17 09:50 Dose: 40 mg Repaglinide (Prandin) 0.5 mg PO TIDAC [facility] Last Admin: 01/11/17 11:40 Dose: 0.5 mg Sennosides (Senokot Tab) 25.8 mg PO HS [facility] Last Admin: 01/10/17 22:24 Dose: 25.8 mg Sevelamer HCl (Renagel) 1,600 mg PO TIDWM [facility] Last Admin: 01/11/17 17:45 Dose: 1,600 mg Simethicone (Mylicon Chew Tab) 80 mg PO Q4H PRN PRN Reason: flatulence or "gassy feeling:" Last Admin: 01/07/17 16:57 Dose: 80 mg Topiramate (Topamax) 50 mg PO BID [facility] Last Admin: 01/11/17 16:37 Dose: 50 mg Vitamin B Complex/Vit C/Folic Acid (Nephro-Ajay) 1 tab PO DAILY [facility] Last Admin: 01/11/17 09:49 Dose: 1 tab - Labs Labs: 01/08/17 17:02 01/08/17 17:02 PT 15.3 Seconds (9.8-13.1) H 12/02/16 13:05 INR 1.4 (0.9-1.2) H 12/02/16 13:05 APTT 37.0 Seconds (25.6-37.1) 12/02/16 13:05 Assessment and Plan (1) Diabetes Status: Chronic (2) ESRD (end stage renal disease) Status: Chronic (3) Cellulitis of leg Status: Chronic (4) Hyperlipidemia Status: Chronic (5) Back pain Status: Acute (6) Bacteremia due to Gram-negative bacteria Status: Acute (7) Diabetes mellitus type 2 with peripheral artery disease Status: Chronic (8) PVD (peripheral vascular disease) Status: Chronic (9) Osteomyelitis of right leg Status: Acute
[2017-01-12] MEDS: Pantoprazole 40 mg EC Tab PO SCH (10:33)
[2017-01-12] MEDS: Multivitamin Vitamin B Complex (Nephro-Vite) Tab PO SCH (10:36)
[2017-01-12] MEDS: Santyl Collagenase OINTMENT TOP SCH (10:39)
--- NOTE | 2017-01-12 13:46 | PN ---
ENDO FOLLOWUP NOTE DATE: 01/12/2017 LOCATION: Room 661 SUBJECTIVE: This is a 46-year-old female with recent right below-knee amputation for severe underlying osteomyelitis currently receiving IV antibiotic management and is also being followed closely for metabolic management. Her glycemic levels are near optimal at this time on a very low dose oral hypoglycemic drug therapy as given. Her latest chemistry showed a BUN of 63, sodium 141, potassium 4.5, chloride 105, CO2 of 23, glucose 112, and creatinine 7.9. Her glucose values have ranged from 79-112 and 138 mg/dl. So at this time, we will continue the low-dose oral hypoglycemic drug therapy as given with Prandin given as 0.5 mg p.o. t.i.d. before meals as ordered. We will titrate incrementally as indicated to optimize metabolic control. We will follow and advise accordingly. Irene Ambrose MD
--- NOTE | 2017-01-12 15:14 | CP.PCM.PN ---
Subjective - Date & Time of Evaluation Date of Evaluation: 01/12/17 Time of Evaluation: 15:13 - Subjective Subjective: Follow up Nephrology Consultation Note Assessment/Plan: End stage renal disease on hemodialysis (MWF) via permacath: Will plan for dialysis friday. no acute need today. continue with Nephrovite 1 tab/day. Anemia: PRBC as needed. On MARTHA as Epogen 20,000 with HD. last Hb 11.2. if remains in this range then will decrease dose of epogen Hyperphosphatemia: continue with current meds as renagel 1600 TID, last phos 4.8 Secondary hyperparathyroidism with Vit D Deficiency: hold sensipar Last PTH level 63 Hypertension controlled: BP mostly on low side Glycemic control, Dialysis consistent diet Further work up/management as per primary team. 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 Dose meds/antibiotics for ESRD status. Avoid fleets enema/magnesium based laxatives. Thanks for allowing me to participate in care of your patient. Will follow patient with you. Please call if any Qs Dr Hernan Andino Office: [phone] Subjective: Noted events overnight. Denies chest pain, palpitation, shortness of breath. 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 obese Vitals reviewed and noted as below Lungs: Normal respiratory rate/effort. Breath sounds bilateral equal and clear Heart: Normal rate. s1s2 normal. No rub or gallop. Extremities: s/p Rt BKA, hx of left BKA. Neurological: Patient is alert, awake and oriented to person, place and time. No focal deficit. Strength bilateral appropriate and equal Skin: Warm and dry. Normal turgor. No rash. Palpitation: Normal elasticity for age Abdomen: Abdomen is soft. Bowel sounds +. There is no abdominal tenderness, no guarding/rigidity or organomegaly. she is obese : kidney or bladder not palpable Access: permacath Labs/imaging reviewed. Past medical history, past surgical history, family history, social history, allergy reviewed Objective - Vital Signs/Intake and Output Vital Signs (last 24 hours): Temp Pulse Resp BP Pulse Ox 97.5 F L 91 H 19 133/75 96 01/12/17 07:43 01/12/17 10:32 01/12/17 07:43 01/12/17 10:32 01/12/17 07:43 - Medications Medications: Current Medications Acetaminophen (Tylenol 325mg Tab) 650 mg PO Q4 PRN PRN Reason: Fever >100.4 F Last Admin: 12/26/16 19:40 Dose: 650 mg Acetaminophen (Tylenol 325mg Tab) 650 mg PO Q4 PRN PRN Reason: Pain, moderate (4-7) Last Admin: 12/26/16 05:14 Dose: 650 mg Apixaban (Eliquis) 5 mg PO BID [facility] PRN Reason: Protocol Last Admin: 01/12/17 10:30 Dose: 5 mg Aspirin (Ecotrin) 81 mg PO DAILY [facility] Last Admin: 01/12/17 10:31 Dose: 81 mg Atorvastatin Calcium (Lipitor) 40 mg PO DAILY [facility] Last Admin: 01/12/17 10:37 Dose: 40 mg Calcium Carbonate (Oscal) 500 mg PO BIDWM [facility] Last Admin: 01/12/17 10:36 Dose: 500 mg Collagenase (Santyl) 1 applic TOP DAILY [facility] Last Admin: 01/12/17 10:39 Dose: 1 applic Diphenhydramine HCl (Benadryl) 25 mg PO Q6 PRN PRN Reason: Itching / Pruritus Last Admin: 12/17/16 09:53 Dose: 25 mg Docusate Sodium (Colace) 100 mg PO BID [facility] Last Admin: 01/12/17 10:34 Dose: 100 mg Epoetin Tha (Procrit) 20,000 unit IV MWF [facility] Last Admin: 01/11/17 10:16 Dose: 20,000 unit Ergocalciferol (Drisdol 50,000 Intl Units Cap) 1 cap PO WED [facility] Last Admin: 01/08/17 09:01 Dose: 1 cap Fluconazole (Diflucan) 100 mg PO DAILY [facility] Last Admin: 01/12/17 10:34 Dose: 100 mg Gabapentin (Neurontin) 300 mg PO TID [facility] Last Admin: 01/12/17 12:38 Dose: 300 mg Guaifenesin/Dextromethorphan (Robitussin Dm) 10 ml PO Q4 PRN PRN Reason: Cough Last Admin: 01/09/17 22:02 Dose: 10 ml Hydrocortisone (Anusol-Hc) 1 applic [place] BID PRN PRN Reason: Inflammation Hydromorphone HCl (Dilaudid) 1 mg IVP Q4H PRN PRN Reason: Pain, severe (8-10) Last Admin: 01/12/17 14:29 Dose: 1 mg Sodium Chloride (Sodium Chloride 0.45%) 500 mls @ 10 mls/hr IV .Q24H [facility] Last Admin: 01/11/17 16:42 Dose: 10 mls/hr Daptomycin 650 mg/ Sodium (Chloride) 100 mls @ 100 mls/hr [place] [facility] [place]: 01/15/17 09:59 Last Admin: 01/08/17 20:10 Dose: 100 mls/hr Ceftazidime/Avibactam 0.94 gm/ (Sodium Chloride) 100 mls @ 50 mls/hr IV QOTHERDAY@2200 [facility] Last Admin: 01/10/17 22:24 Dose: 50 mls/hr Gentamicin Sulfate/Sodium Chloride (Gentamicin 100mg/100ml Ns) 100 mg in 100 mls @ 100 mls/hr IVPB [facility] Last Admin: 01/08/17 23:44 Dose: 100 mls/hr Levalbuterol HCl (Xopenex) 0.63 mg INH RQ8 PRN PRN Reason: Shortness of Breath Metoprolol Tartrate (Lopressor) 25 mg PO Q12 [facility] Last Admin: 01/12/17 10:32 Dose: 25 mg Nystatin (Nystop Topical Powder) 1 applic TOP BID [facility] Last Admin: 01/12/17 10:33 Dose: 1 applic Ondansetron HCl (Zofran Inj) 4 mg IVP Q6 PRN PRN Reason: Nausea/Vomiting Last Admin: 09/19/16 10:26 Dose: 4 mg Pantoprazole Sodium (Protonix Ec Tab) 40 mg PO DAILY [facility] Last Admin: 01/12/17 10:33 Dose: 40 mg Repaglinide (Prandin) 0.5 mg PO TIDAC [facility] Last Admin: 01/12/17 12:38 Dose: 0.5 mg Sennosides (Senokot Tab) 25.8 mg PO HS [facility] Last Admin: 01/11/17 21:04 Dose: 25.8 mg Sevelamer HCl (Renagel) 1,600 mg PO TIDWM [facility] Last Admin: 01/12/17 12:38 Dose: 1,600 mg Simethicone (Mylicon Chew Tab) 80 mg PO Q4H PRN PRN Reason: flatulence or "gassy feeling:" Last Admin: 01/07/17 16:57 Dose: 80 mg Topiramate (Topamax) 50 mg PO BID [facility] Last Admin: 01/12/17 10:37 Dose: 50 mg Vitamin B Complex/Vit C/Folic Acid (Nephro-Ajay) 1 tab PO DAILY [facility] Last Admin: 01/12/17 10:36 Dose: 1 tab - Labs Labs: 01/08/17 17:02 01/08/17 17:02 PT 15.3 Seconds (9.8-13.1) H 12/02/16 13:05 INR 1.4 (0.9-1.2) H 12/02/16 13:05 APTT 37.0 Seconds (25.6-37.1) 12/02/16 13:05
--- NOTE | 2017-01-12 19:36 | CP.PCM.PN ---
Subjective - Date & Time of Evaluation Date of Evaluation: 01/12/17 Time of Evaluation: 19:33 - Subjective Subjective: Patient just got back in bed after being up in the wheelchair. She did not wheel herself around the unit. We will try for this tomorroe. No fevers, cough, dyspnea or pain. Patellar wound cleansed and Santyl applied. R BK wound vac is in place. Patient continues on 3 iv antibiotics and po fluconazole. We must watch to be sure the daptomycin is not discontinued. The Eliquis was discontinued by the computer. This should not happen. I have reordered it with a stat dose to be given now. This anticoagulant along with aspirin is needed because of protein C & S deficiency with thrombophilia. DM controlled. No seizures. No new physical exam findings. Objective - Vital Signs/Intake and Output Vital Signs (last 24 hours): Temp Pulse Resp BP Pulse Ox 97.7 F 87 18 133/72 94 L 01/12/17 16:33 01/12/17 16:33 01/12/17 16:33 01/12/17 16:33 01/12/17 16:33 - Medications Medications: Current Medications Acetaminophen (Tylenol 325mg Tab) 650 mg PO Q4 PRN PRN Reason: Fever >100.4 F Last Admin: 12/26/16 19:40 Dose: 650 mg Acetaminophen (Tylenol 325mg Tab) 650 mg PO Q4 PRN PRN Reason: Pain, moderate (4-7) Last Admin: 12/26/16 05:14 Dose: 650 mg Apixaban (Eliquis) 5 mg PO BID [facility] PRN Reason: Protocol Aspirin (Ecotrin) 81 mg PO DAILY [facility] Last Admin: 01/12/17 10:31 Dose: 81 mg Atorvastatin Calcium (Lipitor) 40 mg PO DAILY [facility] Last Admin: 01/12/17 10:37 Dose: 40 mg Calcium Carbonate (Oscal) 500 mg PO BIDWM [facility] Last Admin: 01/12/17 17:27 Dose: 500 mg Collagenase (Santyl) 1 applic TOP DAILY [facility] Last Admin: 01/12/17 10:39 Dose: 1 applic Diphenhydramine HCl (Benadryl) 25 mg PO Q6 PRN PRN Reason: Itching / Pruritus Last Admin: 12/17/16 09:53 Dose: 25 mg Docusate Sodium (Colace) 100 mg PO BID [facility] Last Admin: 01/12/17 17:27 Dose: 100 mg Epoetin Tha (Procrit) 20,000 unit IV [facility] Last Admin: 01/11/17 10:16 Dose: 20,000 unit Ergocalciferol (Drisdol 50,000 Intl Units Cap) 1 cap PO WED [facility] Last Admin: 01/08/17 09:01 Dose: 1 cap Fluconazole (Diflucan) 100 mg PO DAILY [facility] Last Admin: 01/12/17 10:34 Dose: 100 mg Gabapentin (Neurontin) 300 mg PO TID [facility] Last Admin: 01/12/17 17:31 Dose: 300 mg Guaifenesin/Dextromethorphan (Robitussin Dm) 10 ml PO Q4 PRN PRN Reason: Cough Last Admin: 01/09/17 22:02 Dose: 10 ml Hydrocortisone (Anusol-Hc) 1 applic [place] BID PRN PRN Reason: Inflammation Hydromorphone HCl (Dilaudid) 1 mg IVP Q4H PRN PRN Reason: Pain, severe (8-10) Last Admin: 01/12/17 18:36 Dose: 1 mg Sodium Chloride (Sodium Chloride 0.45%) 500 mls @ 10 mls/hr IV .Q24H [facility] Last Admin: 01/12/17 17:28 Dose: Not Given Daptomycin 650 mg/ Sodium (Chloride) 100 mls @ 100 mls/hr IVPB [facility] Stop: 01/15/17 09:59 Last Admin: 01/08/17 20:10 Dose: 100 mls/hr Ceftazidime/Avibactam 0.94 gm/ (Sodium Chloride) 100 mls @ 50 mls/hr IV QOTHERDAY@2200 [facility] Last Admin: 01/10/17 22:24 Dose: 50 mls/hr Gentamicin Sulfate/Sodium Chloride (Gentamicin 100mg/100ml Ns) 100 mg in 100 mls @ 100 mls/hr IVPB [facility] Last Admin: 01/08/17 23:44 Dose: 100 mls/hr Levalbuterol HCl (Xopenex) 0.63 mg INH RQ8 PRN PRN Reason: Shortness of Breath Metoprolol Tartrate (Lopressor) 25 mg PO Q12 [facility] Last Admin: 01/12/17 10:32 Dose: 25 mg Nystatin (Nystop Topical Powder) 1 applic TOP BID [facility] Last Admin: 01/12/17 17:31 Dose: 1 applic Ondansetron HCl (Zofran Inj) 4 mg IVP Q6 PRN PRN Reason: Nausea/Vomiting Last Admin: 09/19/16 10:26 Dose: 4 mg Pantoprazole Sodium (Protonix Ec Tab) 40 mg PO DAILY [facility] Last Admin: 01/12/17 10:33 Dose: 40 mg Repaglinide (Prandin) 0.5 mg PO TIDAC [facility] Last Admin: 01/12/17 17:30 Dose: 0.5 mg Sennosides (Senokot Tab) 25.8 mg PO HS [facility] Last Admin: 01/11/17 21:04 Dose: 25.8 mg Sevelamer HCl (Renagel) 1,600 mg PO TIDWM [facility] Last Admin: 01/12/17 17:27 Dose: 1,600 mg Simethicone (Mylicon Chew Tab) 80 mg PO Q4H PRN PRN Reason: flatulence or "gassy feeling:" Last Admin: 01/07/17 16:57 Dose: 80 mg Topiramate (Topamax) 50 mg PO BID [facility] Last Admin: 01/12/17 17:27 Dose: 50 mg Vitamin B Complex/Vit C/Folic Acid (Nephro-Ajay) 1 tab PO DAILY [facility] Last Admin: 01/12/17 10:36 Dose: 1 tab - Labs Labs: 01/08/17 17:02 01/08/17 17:02 PT 15.3 Seconds (9.8-13.1) H 12/02/16 13:05 INR 1.4 (0.9-1.2) H 12/02/16 13:05 APTT 37.0 Seconds (25.6-37.1) 12/02/16 13:05 Assessment and Plan (1) Status post below knee amputation of right lower extremity Status: Acute (2) ESRD (end stage renal disease) on dialysis Status: Chronic (3) DM type 2 (diabetes mellitus, type 2) Status: Chronic (4) Coagulopathy Status: Chronic (5) Peripheral arterial occlusive disease Status: Chronic
--- NOTE | 2017-01-12 23:29 | CP.PCM.PN ---
Subjective - Date & Time of Evaluation Date of Evaluation: 01/12/17 Time of Evaluation: 20:00 - Subjective Subjective: Viki was D/C by the computer, which is a relatively frequent problem and was reinstated. She is on 3 IV antibiotics and an Oral fluconazone. She is Out Of Bed more frequently but needs to ambulate in her Wheel Chair. There is no seizures on Topamax 50 mg Q 12 hrs. She will get her hemodialysis as a routine on Friday, Friday and Friday. VS are better adjusted since metaprolol was started, her Pulse is around 90 to 80 and the BP is very well controlled. Objective - Vital Signs/Intake and Output Vital Signs (last 24 hours): Temp Pulse Resp BP Pulse Ox 97.7 F 86 18 112/61 94 L 01/12/17 16:33 01/12/17 21:21 01/12/17 16:33 01/12/17 21:21 01/12/17 16:33 - Medications Medications: Current Medications Acetaminophen (Tylenol 325mg Tab) 650 mg PO Q4 PRN PRN Reason: Fever >100.4 F Last Admin: 12/26/16 19:40 Dose: 650 mg Acetaminophen (Tylenol 325mg Tab) 650 mg PO Q4 PRN PRN Reason: Pain, moderate (4-7) Last Admin: 12/26/16 05:14 Dose: 650 mg Apixaban (Eliquis) 5 mg PO BID [facility] PRN Reason: Protocol Last Admin: 01/12/17 21:06 Dose: Not Given Aspirin (Ecotrin) 81 mg PO DAILY [facility] Last Admin: 01/12/17 10:31 Dose: 81 mg Atorvastatin Calcium (Lipitor) 40 mg PO DAILY [facility] Last Admin: 01/12/17 10:37 Dose: 40 mg Calcium Carbonate (Oscal) 500 mg PO BIDWM [facility] Last Admin: 01/12/17 17:27 Dose: 500 mg Collagenase (Santyl) 1 applic TOP DAILY [facility] Last Admin: 01/12/17 10:39 Dose: 1 applic Diphenhydramine HCl (Benadryl) 25 mg PO Q6 PRN PRN Reason: Itching / Pruritus Last Admin: 12/17/16 09:53 Dose: 25 mg Docusate Sodium (Colace) 100 mg PO BID [facility] Last Admin: 01/12/17 17:27 Dose: 100 mg Epoetin Tha (Procrit) 20,000 unit IV [facility] Last Admin: 01/11/17 10:16 Dose: 20,000 unit Ergocalciferol (Drisdol 50,000 Intl Units Cap) 1 cap PO WED [facility] Last Admin: 01/08/17 09:01 Dose: 1 cap Fluconazole (Diflucan) 100 mg PO DAILY [facility] Last Admin: 01/12/17 10:34 Dose: 100 mg Gabapentin (Neurontin) 300 mg PO TID [facility] Last Admin: 01/12/17 17:31 Dose: 300 mg Guaifenesin/Dextromethorphan (Robitussin Dm) 10 ml PO Q4 PRN PRN Reason: Cough Last Admin: 01/09/17 22:02 Dose: 10 ml Hydrocortisone (Anusol-Hc) 1 applic [place] BID PRN PRN Reason: Inflammation Hydromorphone HCl (Dilaudid) 1 mg IVP Q4H PRN PRN Reason: Pain, severe (8-10) Last Admin: 01/12/17 18:36 Dose: 1 mg Sodium Chloride (Sodium Chloride 0.45%) 500 mls @ 10 mls/hr IV .Q24H [facility] Last Admin: 01/12/17 17:28 Dose: Not Given Daptomycin 650 mg/ Sodium (Chloride) 100 mls @ 100 mls/hr IVPB [facility] Stop: 01/15/17 09:59 Last Admin: 01/08/17 20:10 Dose: 100 mls/hr Ceftazidime/Avibactam 0.94 gm/ (Sodium Chloride) 100 mls @ 50 mls/hr IV QOTHERDAY@2200 [facility] Last Admin: 01/12/17 21:14 Dose: 50 mls/hr Gentamicin Sulfate/Sodium Chloride (Gentamicin 100mg/100ml Ns) 100 mg in 100 mls @ 100 mls/hr IVPB [facility] Last Admin: 01/08/17 23:44 Dose: 100 mls/hr Levalbuterol HCl (Xopenex) 0.63 mg INH RQ8 PRN PRN Reason: Shortness of Breath Metoprolol Tartrate (Lopressor) 25 mg PO Q12 [facility] Last Admin: 01/12/17 21:21 Dose: 25 mg Nystatin (Nystop Topical Powder) 1 applic TOP BID [facility] Last Admin: 01/12/17 17:31 Dose: 1 applic Ondansetron HCl (Zofran Inj) 4 mg IVP Q6 PRN PRN Reason: Nausea/Vomiting Last Admin: 09/19/16 10:26 Dose: 4 mg Pantoprazole Sodium (Protonix Ec Tab) 40 mg PO DAILY [facility] Last Admin: 01/12/17 10:33 Dose: 40 mg Repaglinide (Prandin) 0.5 mg PO TIDAC [facility] Last Admin: 01/12/17 17:30 Dose: 0.5 mg Sennosides (Senokot Tab) 25.8 mg PO HS [facility] Last Admin: 01/12/17 21:14 Dose: 25.8 mg Sevelamer HCl (Renagel) 1,600 mg PO TIDWM [facility] Last Admin: 01/12/17 17:27 Dose: 1,600 mg Simethicone (Mylicon Chew Tab) 80 mg PO Q4H PRN PRN Reason: flatulence or "gassy feeling:" Last Admin: 01/07/17 16:57 Dose: 80 mg Topiramate (Topamax) 50 mg PO BID [facility] Last Admin: 01/12/17 17:27 Dose: 50 mg Vitamin B Complex/Vit C/Folic Acid (Nephro-Ajay) 1 tab PO DAILY [facility] Last Admin: 01/12/17 10:36 Dose: 1 tab - Labs Labs: 01/08/17 17:02 01/08/17 17:02 PT 15.3 Seconds (9.8-13.1) H 12/02/16 13:05 INR 1.4 (0.9-1.2) H 12/02/16 13:05 APTT 37.0 Seconds (25.6-37.1) 12/02/16 13:05 Assessment and Plan (1) Diabetes Status: Chronic (2) ESRD (end stage renal disease) Status: Chronic (3) Cellulitis of leg Status: Chronic (4) Hyperlipidemia Status: Chronic (5) Back pain Status: Acute (6) Bacteremia due to Gram-negative bacteria Status: Acute (7) Diabetes mellitus type 2 with peripheral artery disease Status: Chronic (8) PVD (peripheral vascular disease) Status: Chronic (9) Osteomyelitis of right leg Status: Acute
--- NOTE | 2017-01-13 09:58 | CP.PCM.PN ---
Subjective - Date & Time of Evaluation Date of Evaluation: 01/13/17 Time of Evaluation: 09:55 - Subjective Subjective: Patient is having hemodialysis now. No pain, dyspnea, cough, or fevers. She continues on iv antibiotics and po fluconazole for infection R patella and BK wound. Wound vac is in place - to be changed tomorrow. Patella is dressed daily after cleansing with saline and applying Santyl. DM controlled on Prandin. She is back on Eliquis and aspirin - with apparently no interruption as the discontinuation by the computer was caught in time. No seizures. Objective - Vital Signs/Intake and Output Vital Signs (last 24 hours): Temp Pulse Resp BP Pulse Ox 98.1 F 89 20 157/66 H 96 01/13/17 07:48 01/13/17 07:48 01/13/17 07:48 01/13/17 07:48 01/13/17 07:48 - Medications Medications: Current Medications Acetaminophen (Tylenol 325mg Tab) 650 mg PO Q4 PRN PRN Reason: Fever >100.4 F Last Admin: 12/26/16 19:40 Dose: 650 mg Acetaminophen (Tylenol 325mg Tab) 650 mg PO Q4 PRN PRN Reason: Pain, moderate (4-7) Last Admin: 12/26/16 05:14 Dose: 650 mg Apixaban (Eliquis) 5 mg PO BID [facility] PRN Reason: Protocol Last Admin: 01/12/17 21:06 Dose: Not Given Aspirin (Ecotrin) 81 mg PO DAILY [facility] Last Admin: 01/12/17 10:31 Dose: 81 mg Atorvastatin Calcium (Lipitor) 40 mg PO DAILY [facility] Last Admin: 01/12/17 10:37 Dose: 40 mg Calcium Carbonate (Oscal) 500 mg PO BIDWM [facility] Last Admin: 01/12/17 17:27 Dose: 500 mg Collagenase (Santyl) 1 applic TOP DAILY [facility] Last Admin: 01/12/17 10:39 Dose: 1 applic Diphenhydramine HCl (Benadryl) 25 mg PO Q6 PRN PRN Reason: Itching / Pruritus Last Admin: 12/17/16 09:53 Dose: 25 mg Docusate Sodium (Colace) 100 mg PO BID [facility] Last Admin: 01/12/17 17:27 Dose: 100 mg Epoetin Tha (Procrit) 20,000 unit IV [facility] Last Admin: 01/11/17 10:16 Dose: 20,000 unit Ergocalciferol (Drisdol 50,000 Intl Units Cap) 1 cap PO WED [facility] Last Admin: 01/08/17 09:01 Dose: 1 cap Fluconazole (Diflucan) 100 mg PO DAILY [facility] Last Admin: 01/12/17 10:34 Dose: 100 mg Gabapentin (Neurontin) 300 mg PO TID [facility] Last Admin: 01/12/17 17:31 Dose: 300 mg Guaifenesin/Dextromethorphan (Robitussin Dm) 10 ml PO Q4 PRN PRN Reason: Cough Last Admin: 01/09/17 22:02 Dose: 10 ml Hydrocortisone (Anusol-Hc) 1 applic RI BID PRN PRN Reason: Inflammation Hydromorphone HCl (Dilaudid) 1 mg IVP Q4H PRN PRN Reason: Pain, severe (8-10) Last Admin: 01/13/17 05:04 Dose: 1 mg Sodium Chloride (Sodium Chloride 0.45%) 500 mls @ 10 mls/hr IV .Q24H [facility] Last Admin: 01/12/17 17:28 Dose: Not Given Daptomycin 650 mg/ Sodium (Chloride) 100 mls @ 100 mls/hr IVPB [facility] [place] Stop: 01/15/17 09:59 Last Admin: 01/08/17 20:10 Dose: 100 mls/hr Ceftazidime/Avibactam 0.94 gm/ (Sodium Chloride) 100 mls @ 50 mls/hr IV QOTHERDAY@2200 [facility] Last Admin: 01/12/17 21:14 Dose: 50 mls/hr Gentamicin Sulfate/Sodium Chloride (Gentamicin 100mg/100ml Ns) 100 mg in 100 mls @ 100 mls/hr IVPB [facility] [place] Last Admin: 01/08/17 23:44 Dose: 100 mls/hr Levalbuterol HCl (Xopenex) 0.63 mg INH RQ8 PRN PRN Reason: Shortness of Breath Metoprolol Tartrate (Lopressor) 25 mg PO Q12 [facility] Last Admin: 01/12/17 21:21 Dose: 25 mg Nystatin (Nystop Topical Powder) 1 applic TOP BID [facility] Last Admin: 01/12/17 17:31 Dose: 1 applic Ondansetron HCl (Zofran Inj) 4 mg IVP Q6 PRN PRN Reason: Nausea/Vomiting Last Admin: 09/19/16 10:26 Dose: 4 mg Pantoprazole Sodium (Protonix Ec Tab) 40 mg PO DAILY [facility] Last Admin: 01/12/17 10:33 Dose: 40 mg Repaglinide (Prandin) 0.5 mg PO TIDAC [facility] Last Admin: 01/12/17 17:30 Dose: 0.5 mg Sennosides (Senokot Tab) 25.8 mg PO HS [facility] Last Admin: 01/12/17 21:14 Dose: 25.8 mg Sevelamer HCl (Renagel) 1,600 mg PO TIDWM [facility] Last Admin: 01/12/17 17:27 Dose: 1,600 mg Simethicone (Mylicon Chew Tab) 80 mg PO Q4H PRN PRN Reason: flatulence or "gassy feeling:" Last Admin: 01/07/17 16:57 Dose: 80 mg Topiramate (Topamax) 50 mg PO BID [facility] Last Admin: 01/12/17 17:27 Dose: 50 mg Vitamin B Complex/Vit C/Folic Acid (Nephro-Ajay) 1 tab PO DAILY [facility] Last Admin: 01/12/17 10:36 Dose: 1 tab - Labs Labs: 01/08/17 17:02 01/08/17 17:02 PT 15.3 Seconds (9.8-13.1) H 12/02/16 13:05 INR 1.4 (0.9-1.2) H 12/02/16 13:05 APTT 37.0 Seconds (25.6-37.1) 12/02/16 13:05 - Constitutional Appears: No Acute Distress - Head Exam Head Exam: NORMAL INSPECTION - Eye Exam Eye Exam: Normal appearance - ENT Exam ENT Exam: Mucous Membranes Moist - Neck Exam Neck Exam: Normal Inspection Additional comments: R subclavian Permacath intact - dressing to be changed today. - Respiratory Exam Respiratory Exam: Clear to Ausculation Bilateral, NORMAL BREATHING PATTERN - Cardiovascular Exam Cardiovascular Exam: REGULAR RHYTHM, +S1, +S2 - GI/Abdominal Exam GI & Abdominal Exam: Soft - Extremities Exam Additional comments: R lower extremity wound vac and dressings in place. L femoral vein PICC line in place - needs redressing. Otherwise unchanged. - Neurological Exam Neurological Exam: Alert, CN II-XII Intact, Oriented x3 - Psychiatric Exam Psychiatric exam: Normal Affect, Normal Mood - Skin Skin Exam: Dry, Normal Color, Warm Additional comments: Slight abrasion R anterolateral chest- patient attributes to moses lift. Assessment and Plan (1) Status post below knee amputation of right lower extremity Assessment & Plan: Continues to make slow progress. We need to increase activities now. Physical therapists to work on transfer techniques. Status: Acute (2) ESRD (end stage renal disease) on dialysis Status: Chronic (3) DM type 2 (diabetes mellitus, type 2) Status: Chronic (4) Coagulopathy Status: Chronic (5) Peripheral arterial occlusive disease Status: Chronic
[2017-01-13] MEDS: Multivitamin Vitamin B Complex (Nephro-Vite) Tab PO SCH (10:51)
[2017-01-13] MEDS: guaiFENesin DM 200 mg-20 mg/10 ml UD PO PRN (10:51)
[2017-01-13] MEDS: Pantoprazole 40 mg EC Tab PO SCH (10:56)
[2017-01-13] MEDS: Santyl Collagenase OINTMENT TOP SCH (11:02)
[2017-01-13] MEDS: Gentamicin 100mg/100ml NS 100 MG/100 ML BAG IVPB SCH ×2 (11:03→11:05)
--- NOTE | 2017-01-13 11:30 | CP.PCM.PN ---
Subjective - Date & Time of Evaluation Date of Evaluation: 01/13/17 Time of Evaluation: 11:29 - Subjective Subjective: Follow up Nephrology Consultation Note Assessment/Plan: End stage renal disease on hemodialysis (MWF) via permacath: dialysis today as ordered. continue with Nephrovite 1 tab/day. Anemia: PRBC as needed. On MARTHA as Epogen 20,000 with HD. last Hb 11.2. if remains in this range then will decrease dose of epogen Hyperphosphatemia: continue with current meds as renagel 1600 TID, last phos 4.8 Secondary hyperparathyroidism with Vit D Deficiency: hold sensipar Last PTH level 63 Hypertension controlled: BP mostly on low side Glycemic control, Dialysis consistent diet Further work up/management as per primary team. 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 Dose meds/antibiotics for ESRD status. Avoid fleets enema/magnesium based laxatives. Thanks for allowing me to participate in care of your patient. Will follow patient with you. Please call if any Qs Dr Hernan Andino Office: [phone] Subjective: Noted events overnight. Denies chest pain, palpitation, shortness of breath. during this hospitalization she had Rt BKA, vaginal D&C, endometrial ablation and debdridement of Rt BKA stump Physical Examination: pt seen during dialysis. tolerating well General Appearance: Comfortable, in no acute respiratory distress, co- operative. obese Vitals reviewed and noted as below Lungs: Normal respiratory rate/effort. Breath sounds bilateral equal and clear Heart: Normal rate. s1s2 normal. No rub or gallop. Extremities: s/p Rt BKA, hx of left BKA. Neurological: Patient is alert, awake and oriented to person, place and time. No focal deficit. Strength bilateral appropriate and equal Skin: Warm and dry. Normal turgor. No rash. Palpitation: Normal elasticity for age Abdomen: Abdomen is soft. Bowel sounds +. There is no abdominal tenderness, no guarding/rigidity or organomegaly. she is obese : kidney or bladder not palpable Access: permacath Labs/imaging reviewed. Past medical history, past surgical history, family history, social history, allergy reviewed Objective - Vital Signs/Intake and Output Vital Signs (last 24 hours): Temp Pulse Resp BP Pulse Ox 98.1 F 89 20 151/49 H 96 01/13/17 07:48 01/13/17 07:48 01/13/17 07:48 01/13/17 10:57 01/13/17 07:48 - Medications Medications: Current Medications Acetaminophen (Tylenol 325mg Tab) 650 mg PO Q4 PRN PRN Reason: Fever >100.4 F Last Admin: 12/26/16 19:40 Dose: 650 mg Acetaminophen (Tylenol 325mg Tab) 650 mg PO Q4 PRN PRN Reason: Pain, moderate (4-7) Last Admin: 12/26/16 05:14 Dose: 650 mg Apixaban (Eliquis) 5 mg PO BID [facility] PRN Reason: Protocol Last Admin: 01/13/17 10:00 Dose: 5 mg Aspirin (Ecotrin) 81 mg PO DAILY [facility] Last Admin: 01/13/17 11:02 Dose: 81 mg Atorvastatin Calcium (Lipitor) 40 mg PO DAILY [facility] Last Admin: 01/13/17 10:00 Dose: 40 mg Calcium Carbonate (Oscal) 500 mg PO BIDWM [facility] Last Admin: 01/13/17 10:00 Dose: 500 mg Collagenase (Santyl) 1 applic TOP DAILY [facility] Last Admin: 01/13/17 11:02 Dose: 1 applic Diphenhydramine HCl (Benadryl) 25 mg PO Q6 PRN PRN Reason: Itching / Pruritus Last Admin: 12/17/16 09:53 Dose: 25 mg Docusate Sodium (Colace) 100 mg PO BID [facility] Last Admin: 01/13/17 10:00 Dose: 100 mg Epoetin Tha (Procrit) 20,000 unit IV MWF [facility] Last Admin: 01/11/17 10:16 Dose: 20,000 unit Ergocalciferol (Drisdol 50,000 Intl Units Cap) 1 cap PO WED [facility] Last Admin: 01/08/17 09:01 Dose: 1 cap Fluconazole (Diflucan) 100 mg PO DAILY [facility] Last Admin: 01/13/17 10:59 Dose: 100 mg Gabapentin (Neurontin) 300 mg PO TID [facility] Last Admin: 01/13/17 10:00 Dose: 300 mg Guaifenesin/Dextromethorphan (Robitussin Dm) 10 ml PO Q4 PRN PRN Reason: Cough Last Admin: 01/13/17 10:51 Dose: 10 ml Hydrocortisone (Anusol-Hc) 1 applic SD BID PRN PRN Reason: Inflammation Hydromorphone HCl (Dilaudid) 1 mg IVP Q4H PRN PRN Reason: Pain, severe (8-10) Last Admin: 01/13/17 10:48 Dose: 1 mg Sodium Chloride (Sodium Chloride 0.45%) 500 mls @ 10 mls/hr IV .Q24H [facility] Last Admin: 01/12/17 17:28 Dose: Not Given Daptomycin 650 mg/ Sodium (Chloride) 100 mls @ 100 mls/hr IVPB [facility] [place] Stop: 01/15/17 09:59 Last Admin: 01/08/17 20:10 Dose: 100 mls/hr Ceftazidime/Avibactam 0.94 gm/ (Sodium Chloride) 100 mls @ 50 mls/hr IV QOTHERDAY@2200 [facility] Last Admin: 01/12/17 21:14 Dose: 50 mls/hr Gentamicin Sulfate/Sodium Chloride (Gentamicin 100mg/100ml Ns) 100 mg in 100 mls @ 100 mls/hr IVPB [facility] [place] Last Admin: 01/13/17 11:05 Dose: 100 mls/hr Levalbuterol HCl (Xopenex) 0.63 mg INH RQ8 PRN PRN Reason: Shortness of Breath Metoprolol Tartrate (Lopressor) 25 mg PO Q12 [facility] Last Admin: 01/13/17 10:57 Dose: 25 mg Nystatin (Nystop Topical Powder) 1 applic TOP BID [facility] Last Admin: 01/13/17 10:54 Dose: 1 applic Ondansetron HCl (Zofran Inj) 4 mg IVP Q6 PRN PRN Reason: Nausea/Vomiting Last Admin: 09/19/16 10:26 Dose: 4 mg Pantoprazole Sodium (Protonix Ec Tab) 40 mg PO DAILY [facility] Last Admin: 01/13/17 10:56 Dose: 40 mg Repaglinide (Prandin) 0.5 mg PO TIDAC [facility] Last Admin: 01/13/17 10:00 Dose: 0.5 mg Sennosides (Senokot Tab) 25.8 mg PO HS [facility] Last Admin: 01/12/17 21:14 Dose: 25.8 mg Sevelamer HCl (Renagel) 1,600 mg PO TIDWM [facility] Last Admin: 01/13/17 10:00 Dose: 1,600 mg Simethicone (Mylicon Chew Tab) 80 mg PO Q4H PRN PRN Reason: flatulence or "gassy feeling:" Last Admin: 01/07/17 16:57 Dose: 80 mg Topiramate (Topamax) 50 mg PO BID [facility] Last Admin: 01/13/17 10:00 Dose: 50 mg Vitamin B Complex/Vit C/Folic Acid (Nephro-Ajay) 1 tab PO DAILY [facility] Last Admin: 01/13/17 10:51 Dose: 1 tab - Labs Labs: 01/08/17 17:02 01/08/17 17:02 PT 15.3 Seconds (9.8-13.1) H 12/02/16 13:05 INR 1.4 (0.9-1.2) H 12/02/16 13:05 APTT 37.0 Seconds (25.6-37.1) 12/02/16 13:05
[2017-01-13] MEDS: Epoetin Alfa 20000 UNIT/ML Inj IV SCH (11:31)
[2017-01-13 12:25] LABS: BASO # 0.1 K/uL (0.0-0.2); BASO % 1.1 % (0.0-2.0); EOS # 0.7 K/uL (0.0-0.7); EOS % 7.4 % (0.0-4.0); LYMPH # 1.4 K/uL (1.0-4.3); LYMPH % 14.9 % (20.0-40.0); MEAN CELL VOLUME 98.7 fl (81.0-99.0); MEAN CORPUSCULAR HEMOGLOBIN 29.3 pg (27.0-31.0); MEAN CORPUSCULAR HGB CONC 29.7 g/dL (33.0-37.0); MEAN PLATELET VOLUME 9.5 fl (7.2-11.7); MONO # 1.1 K/uL (0.0-0.8); MONO % 11.5 % (0.0-10.0); NEUT # 5.9 K/uL (1.8-7.0); NEUT % 65.1 % (50.0-75.0); NRBC % 0.2 % (0.0-0.0); RED CELL DISTRIBUTION WIDTH 21.3 % (11.5-14.5); WHITE BLOOD COUNT 9.1 K/uL (4.8-10.8)
[2017-01-13 12:37] LABS: ALB/GLOB RATIO 0.9 (1.0-2.1); BILIRUBIN,TOTAL 0.5 mg/dl (0.2-1.3); CALCIUM 9.4 mg/dL (8.4-10.2); TOTAL PROTEIN 7.2 G/DL (6.3-8.2)
[2017-01-13 12:39] LABS: POTASSIUM 4.4 MMOL/L (3.6-5.0)
--- NOTE | 2017-01-13 14:59 | PN ---
ENDO FOLLOWUP NOTE DATE: 01/13/2017 LOCATION: Room 661. SUBJECTIVE: This is a 46-year-old female with recent uncontrolled type 2 diabetes, currently with near optimal metabolic control of her glycemic profile on just a low dose oral hypoglycemic drug therapy as given. Her latest chemistry showed a BUN of 63, sodium 141, potassium 4.5, chloride 105, CO2 23, glucose 112, and creatinine 7.9. So at this time, we will continue the low dose Prandin given as 0.5 mg p.o. t.i.d. before meals as ordered. We will titrate incrementally as indicated to optimize metabolic control. We will follow and advise accordingly. Irene Ambrose MD
--- NOTE | 2017-01-13 19:30 | CP.PCM.PN ---
Subjective - Date & Time of Evaluation Date of Evaluation: 01/13/17 Time of Evaluation: 18:05 - Subjective Subjective: Receiving Anticoagulants and Her Antibiotics and wound care. Hemodialysis session was performed today and she is reported to be doing better in her Out Of Bed activity, moving better and accepting PT. She has a good appetite.. She has no seizures and is on Topamax 50 mg Q12hrs. Objective - Vital Signs/Intake and Output Vital Signs (last 24 hours): Temp Pulse Resp BP Pulse Ox 97.8 F 98 H 18 112/79 94 L 01/13/17 16:04 01/13/17 16:04 01/13/17 16:04 01/13/17 16:04 01/13/17 16:04 - Medications Medications: Current Medications Acetaminophen (Tylenol 325mg Tab) 650 mg PO Q4 PRN PRN Reason: Fever >100.4 F Last Admin: 12/26/16 19:40 Dose: 650 mg Acetaminophen (Tylenol 325mg Tab) 650 mg PO Q4 PRN PRN Reason: Pain, moderate (4-7) Last Admin: 12/26/16 05:14 Dose: 650 mg Apixaban (Eliquis) 5 mg PO BID [facility] PRN Reason: Protocol Last Admin: 01/13/17 16:41 Dose: 5 mg Aspirin (Ecotrin) 81 mg PO DAILY [facility] Last Admin: 01/13/17 11:02 Dose: 81 mg Atorvastatin Calcium (Lipitor) 40 mg PO DAILY [facility] Last Admin: 01/13/17 10:00 Dose: 40 mg Calcium Carbonate (Oscal) 500 mg PO BIDWM [facility] Last Admin: 01/13/17 16:42 Dose: 500 mg Collagenase (Santyl) 1 applic TOP DAILY [facility] Last Admin: 01/13/17 11:02 Dose: 1 applic Diphenhydramine HCl (Benadryl) 25 mg PO Q6 PRN PRN Reason: Itching / Pruritus Last Admin: 12/17/16 09:53 Dose: 25 mg Docusate Sodium (Colace) 100 mg PO BID [facility] Last Admin: 01/13/17 16:46 Dose: 100 mg Epoetin Tha (Procrit) 20,000 unit IV MWF [facility] Last Admin: 01/13/17 11:31 Dose: 20,000 unit Ergocalciferol (Drisdol 50,000 Intl Units Cap) 1 cap PO WED [facility] Last Admin: 01/08/17 09:01 Dose: 1 cap Fluconazole (Diflucan) 100 mg PO DAILY [facility] Last Admin: 01/13/17 10:59 Dose: 100 mg Gabapentin (Neurontin) 300 mg PO TID [facility] Last Admin: 01/13/17 16:41 Dose: 300 mg Guaifenesin/Dextromethorphan (Robitussin Dm) 10 ml PO Q4 PRN PRN Reason: Cough Last Admin: 01/13/17 10:51 Dose: 10 ml Hydrocortisone (Anusol-Hc) 1 applic [place] BID PRN PRN Reason: Inflammation Hydromorphone HCl (Dilaudid) 1 mg IVP Q4H PRN PRN Reason: Pain, severe (8-10) Last Admin: 01/13/17 15:39 Dose: 1 mg Sodium Chloride (Sodium Chloride 0.45%) 500 mls @ 10 mls/hr IV .Q24H [facility] Last Admin: 01/13/17 16:48 Dose: Not Given Daptomycin 650 mg/ Sodium (Chloride) 100 mls @ 100 mls/hr IVPB [facility] [place] Stop: 01/15/17 09:59 Last Admin: 01/13/17 16:40 Dose: 100 mls/hr Ceftazidime/Avibactam 0.94 gm/ (Sodium Chloride) 100 mls @ 50 mls/hr IV QOTHERDAY@2200 [facility] Last Admin: 01/12/17 21:14 Dose: 50 mls/hr Gentamicin Sulfate/Sodium Chloride (Gentamicin 100mg/100ml Ns) 100 mg in 100 mls @ 100 mls/hr IVPB [facility] [place] Last Admin: 01/13/17 11:05 Dose: 100 mls/hr Levalbuterol HCl (Xopenex) 0.63 mg INH RQ8 PRN PRN Reason: Shortness of Breath Metoprolol Tartrate (Lopressor) 25 mg PO Q12 [facility] Last Admin: 01/13/17 10:57 Dose: 25 mg Nystatin (Nystop Topical Powder) 1 applic TOP BID [facility] Last Admin: 01/13/17 16:46 Dose: 1 applic Ondansetron HCl (Zofran Inj) 4 mg IVP Q6 PRN PRN Reason: Nausea/Vomiting Last Admin: 09/19/16 10:26 Dose: 4 mg Pantoprazole Sodium (Protonix Ec Tab) 40 mg PO DAILY [facility] Last Admin: 01/13/17 10:56 Dose: 40 mg Repaglinide (Prandin) 0.5 mg PO TIDAC [facility] Last Admin: 01/13/17 16:44 Dose: 0.5 mg Sennosides (Senokot Tab) 25.8 mg PO HS [facility] Last Admin: 01/12/17 21:14 Dose: 25.8 mg Sevelamer HCl (Renagel) 1,600 mg PO TIDWM [facility] Last Admin: 01/13/17 16:41 Dose: 1,600 mg Simethicone (Mylicon Chew Tab) 80 mg PO Q4H PRN PRN Reason: flatulence or "gassy feeling:" Last Admin: 01/07/17 16:57 Dose: 80 mg Topiramate (Topamax) 50 mg PO BID [facility] Last Admin: 01/13/17 16:43 Dose: 50 mg Vitamin B Complex/Vit C/Folic Acid (Nephro-Ajay) 1 tab PO DAILY [facility] Last Admin: 01/13/17 10:51 Dose: 1 tab - Labs Labs: 01/13/17 12:10 01/13/17 12:10 PT 15.3 Seconds (9.8-13.1) H 12/02/16 13:05 INR 1.4 (0.9-1.2) H 12/02/16 13:05 APTT 37.0 Seconds (25.6-37.1) 12/02/16 13:05 Assessment and Plan (1) Diabetes Status: Chronic (2) ESRD (end stage renal disease) Status: Chronic (3) Cellulitis of leg Status: Chronic (4) Hyperlipidemia Status: Chronic (5) Back pain Status: Acute (6) Bacteremia due to Gram-negative bacteria Status: Acute (7) Diabetes mellitus type 2 with peripheral artery disease Status: Chronic (8) PVD (peripheral vascular disease) Status: Chronic (9) Osteomyelitis of right leg Status: Acute
--- NOTE | 2017-01-14 08:43 | PN ---
ROOM: 661 This is a 46-year-old female with recent uncontrolled type 2 diabetes, now with markedly improved glycemic profile on just oral hypoglycemic therapy as given. She underwent a recent right below-knee amputation for severe underlying osteomyelitis as noted with ongoing IV antibiotics as given. Her latest chemistry showed a BUN of 63, sodium 141, potassium 4.5, chloride 105, CO2 23, glucose 112 and creatinine 7.9. So, at this time, we will continue the low-dose oral hypoglycemic drug therapy with Prandin given at 0.5 mg p.o. t.i.d. before meals as ordered. We will titrate incremental as indicated to optimize metabolic control. We will follow and advise accordingly. Irene Ambrose MD
[2017-01-14] MEDS: Multivitamin Vitamin B Complex (Nephro-Vite) Tab PO SCH (09:37)
[2017-01-14] MEDS: Pantoprazole 40 mg EC Tab PO SCH (09:37)
[2017-01-14] MEDS: Santyl Collagenase OINTMENT TOP SCH (09:57)
--- NOTE | 2017-01-14 11:20 | CP.PCM.PN ---
Subjective - Date & Time of Evaluation Date of Evaluation: 01/14/17 Time of Evaluation: 11:16 - Subjective Subjective: Patient is awaiting physical therapy - to try using sliding board to get onto wheelchair. Hopefully, will get to wheel herself outside as part of the therapy. On IV Ceftazidime/Avibactam, gentamicin, and daptomycin plus oral fluconazole for right patellar and BK infection. Wound vac to be changed today, and right patellar assessed as well. Currently this area is receiving daily cleansing and Santyl dressings. Nice blood work results from yesterday. Heart rate and blood pressure normalized on metoprolol tartrate. DM and coagulopathy and seizure disorder all controlled on medications. No cough, dyspnea, pain, or fevers. Objective - Vital Signs/Intake and Output Vital Signs (last 24 hours): Temp Pulse Resp BP Pulse Ox 97.9 F 100 H 18 132/66 94 L 01/14/17 08:05 01/14/17 09:50 01/14/17 08:05 01/14/17 09:50 01/14/17 08:05 - Medications Medications: Current Medications Acetaminophen (Tylenol 325mg Tab) 650 mg PO Q4 PRN PRN Reason: Fever >100.4 F Last Admin: 12/26/16 19:40 Dose: 650 mg Acetaminophen (Tylenol 325mg Tab) 650 mg PO Q4 PRN PRN Reason: Pain, moderate (4-7) Last Admin: 12/26/16 05:14 Dose: 650 mg Apixaban (Eliquis) 5 mg PO BID [facility] PRN Reason: Protocol Last Admin: 01/14/17 09:38 Dose: 5 mg Aspirin (Ecotrin) 81 mg PO DAILY [facility] Last Admin: 01/14/17 09:52 Dose: 81 mg Atorvastatin Calcium (Lipitor) 40 mg PO DAILY [facility] Last Admin: 01/14/17 09:39 Dose: 40 mg Calcium Carbonate (Oscal) 500 mg PO BIDWM [facility] Last Admin: 01/14/17 09:51 Dose: 500 mg Collagenase (Santyl) 1 applic TOP DAILY [facility] Last Admin: 01/14/17 09:57 Dose: 1 applic Diphenhydramine HCl (Benadryl) 25 mg PO Q6 PRN PRN Reason: Itching / Pruritus Last Admin: 12/17/16 09:53 Dose: 25 mg Docusate Sodium (Colace) 100 mg PO BID [facility] Last Admin: 01/14/17 09:42 Dose: 100 mg Epoetin Tha (Procrit) 20,000 unit IV [facility] [place] Last Admin: 01/13/17 11:31 Dose: 20,000 unit Ergocalciferol (Drisdol 50,000 Intl Units Cap) 1 cap PO WED [facility] Last Admin: 01/08/17 09:01 Dose: 1 cap Fluconazole (Diflucan) 100 mg PO DAILY [facility] Last Admin: 01/14/17 09:50 Dose: 100 mg Gabapentin (Neurontin) 300 mg PO TID [facility] Last Admin: 01/14/17 09:37 Dose: 300 mg Guaifenesin/Dextromethorphan (Robitussin Dm) 10 ml PO Q4 PRN PRN Reason: Cough Last Admin: 01/13/17 10:51 Dose: 10 ml Hydrocortisone (Anusol-Hc) 1 applic [place] BID PRN PRN Reason: Inflammation Hydromorphone HCl (Dilaudid) 1 mg IVP Q4H PRN PRN Reason: Pain, severe (8-10) Last Admin: 01/14/17 05:47 Dose: 1 mg Sodium Chloride (Sodium Chloride 0.45%) 500 mls @ 10 mls/hr IV .Q24H [facility] Last Admin: 01/13/17 16:48 Dose: Not Given Daptomycin 650 mg/ Sodium (Chloride) 100 mls @ 100 mls/hr IVPB [facility] [place] Stop: 01/15/17 09:59 Last Admin: 01/13/17 16:40 Dose: 100 mls/hr Ceftazidime/Avibactam 0.94 gm/ (Sodium Chloride) 100 mls @ 50 mls/hr IV QOTHERDAY@2200 [facility] Last Admin: 01/12/17 21:14 Dose: 50 mls/hr Gentamicin Sulfate/Sodium Chloride (Gentamicin 100mg/100ml Ns) 100 mg in 100 mls @ 100 mls/hr IVPB [facility] [place] Last Admin: 01/13/17 11:05 Dose: 100 mls/hr Levalbuterol HCl (Xopenex) 0.63 mg INH RQ8 PRN PRN Reason: Shortness of Breath Metoprolol Tartrate (Lopressor) 25 mg PO Q12 [facility] Last Admin: 01/14/17 09:50 Dose: 25 mg Nystatin (Nystop Topical Powder) 1 applic TOP BID [facility] Last Admin: 01/14/17 09:37 Dose: 1 applic Ondansetron HCl (Zofran Inj) 4 mg IVP Q6 PRN PRN Reason: Nausea/Vomiting Last Admin: 09/19/16 10:26 Dose: 4 mg Pantoprazole Sodium (Protonix Ec Tab) 40 mg PO DAILY [facility] Last Admin: 01/14/17 09:37 Dose: 40 mg Repaglinide (Prandin) 0.5 mg PO TIDAC [facility] Last Admin: 01/14/17 06:37 Dose: 0.5 mg Sennosides (Senokot Tab) 25.8 mg PO HS [facility] Last Admin: 01/13/17 21:15 Dose: 25.8 mg Sevelamer HCl (Renagel) 1,600 mg PO TIDWM [facility] Last Admin: 01/14/17 09:37 Dose: 1,600 mg Simethicone (Mylicon Chew Tab) 80 mg PO Q4H PRN PRN Reason: flatulence or "gassy feeling:" Last Admin: 01/07/17 16:57 Dose: 80 mg Topiramate (Topamax) 50 mg PO BID [facility] Last Admin: 01/14/17 09:39 Dose: 50 mg Vitamin B Complex/Vit C/Folic Acid (Nephro-Ajay) 1 tab PO DAILY [facility] Last Admin: 01/14/17 09:37 Dose: 1 tab - Labs Labs: 01/13/17 12:10 01/13/17 12:10 PT 15.3 Seconds (9.8-13.1) H 12/02/16 13:05 INR 1.4 (0.9-1.2) H 12/02/16 13:05 APTT 37.0 Seconds (25.6-37.1) 12/02/16 13:05 - Constitutional Appears: No Acute Distress - Head Exam Head Exam: NORMAL INSPECTION - Eye Exam Eye Exam: Normal appearance - ENT Exam ENT Exam: Mucous Membranes Moist - Neck Exam Neck Exam: Normal Inspection Additional comments: Right subclavian Permacath intact. - Respiratory Exam Respiratory Exam: Clear to Ausculation Bilateral, NORMAL BREATHING PATTERN - Cardiovascular Exam Cardiovascular Exam: REGULAR RHYTHM, +S1, +S2 - GI/Abdominal Exam GI & Abdominal Exam: Soft - Extremities Exam Additional comments: Dressing and wound vac intact R lower leg. Left femoral PICC line intact. - Neurological Exam Neurological Exam: Alert, CN II-XII Intact, Oriented x3 - Psychiatric Exam Psychiatric exam: Normal Affect, Normal Mood - Skin Skin Exam: Dry, Normal Color, Warm Additional comments: Abrasion right lateral chest wall is healing. Assessment and Plan (1) Status post below knee amputation of right lower extremity Assessment & Plan: Making progress. We want the Right BK wound to be healed before transfer to acute rehab will be safe. Will await wound vac change and assessment of right patella today. To continue with physical therapy which is also progressing. Continue same antibiotics. Status: Acute (2) ESRD (end stage renal disease) on dialysis Status: Chronic (3) DM type 2 (diabetes mellitus, type 2) Status: Chronic (4) Coagulopathy Status: Chronic (5) Peripheral arterial occlusive disease Status: Chronic
--- NOTE | 2017-01-14 12:22 | PN ---
LOCATION: In room 661. This is a 46-year-old female with recent uncontrolled type 2 diabetes, now being followed closely for metabolic management. Her glycemic levels have remained optimal at this time and the latest chemistry showed a BUN of 42, sodium 139, potassium 4.4, chloride 101, CO2 of 21, glucose 169, and creatinine 7.1. Her glucose levels have ranged from 79 to 112 mg/dL. So, at this time, we will continue the low-dose oral hypoglycemic therapy with Prandin given at 0.5 mg p.o. t.i.d. before meals as ordered. We will obtain serial chemistries and supplement accordingly as needed. We will follow. Irene Ambrose MD
--- NOTE | 2017-01-14 15:27 | CP.PCM.PN ---
Subjective - Date & Time of Evaluation Date of Evaluation: 01/14/17 Time of Evaluation: 15:24 - Subjective Subjective: RENAL FOLLOW UP NOTE no events overnight Objective - Vital Signs/Intake and Output Vital Signs (last 24 hours): Temp Pulse Resp BP Pulse Ox 97.9 F 100 H 18 132/66 94 L 01/14/17 08:05 01/14/17 09:50 01/14/17 08:05 01/14/17 09:50 01/14/17 08:05 - Medications Medications: Current Medications Acetaminophen (Tylenol 325mg Tab) 650 mg PO Q4 PRN PRN Reason: Fever >100.4 F Last Admin: 12/26/16 19:40 Dose: 650 mg Acetaminophen (Tylenol 325mg Tab) 650 mg PO Q4 PRN PRN Reason: Pain, moderate (4-7) Last Admin: 12/26/16 05:14 Dose: 650 mg Apixaban (Eliquis) 5 mg PO BID [facility] PRN Reason: Protocol Last Admin: 01/14/17 09:38 Dose: 5 mg Aspirin (Ecotrin) 81 mg PO DAILY [facility] Last Admin: 01/14/17 09:52 Dose: 81 mg Atorvastatin Calcium (Lipitor) 40 mg PO DAILY [facility] Last Admin: 01/14/17 09:39 Dose: 40 mg Calcium Carbonate (Oscal) 500 mg PO BIDWM [facility] Last Admin: 01/14/17 09:51 Dose: 500 mg Collagenase (Santyl) 1 applic TOP DAILY [facility] Last Admin: 01/14/17 09:57 Dose: 1 applic Diphenhydramine HCl (Benadryl) 25 mg PO Q6 PRN PRN Reason: Itching / Pruritus Last Admin: 12/17/16 09:53 Dose: 25 mg Docusate Sodium (Colace) 100 mg PO BID [facility] Last Admin: 01/14/17 09:42 Dose: 100 mg Epoetin Tha (Procrit) 20,000 unit IV MWF [facility] Last Admin: 01/13/17 11:31 Dose: 20,000 unit Ergocalciferol (Drisdol 50,000 Intl Units Cap) 1 cap PO WED [facility] Last Admin: 01/08/17 09:01 Dose: 1 cap Fluconazole (Diflucan) 100 mg PO DAILY [facility] Last Admin: 01/14/17 09:50 Dose: 100 mg Gabapentin (Neurontin) 300 mg PO TID [facility] Last Admin: 01/14/17 12:45 Dose: 300 mg Guaifenesin/Dextromethorphan (Robitussin Dm) 10 ml PO Q4 PRN PRN Reason: Cough Last Admin: 01/13/17 10:51 Dose: 10 ml Hydrocortisone (Anusol-Hc) 1 applic [place] BID PRN PRN Reason: Inflammation Hydromorphone HCl (Dilaudid) 1 mg IVP Q4H PRN PRN Reason: Pain, severe (8-10) Last Admin: 01/14/17 05:47 Dose: 1 mg Sodium Chloride (Sodium Chloride 0.45%) 500 mls @ 10 mls/hr IV .Q24H [facility] Last Admin: 01/13/17 16:48 Dose: Not Given Daptomycin 650 mg/ Sodium (Chloride) 100 mls @ 100 mls/hr IVPB [facility] Stop: 01/15/17 09:59 Last Admin: 01/13/17 16:40 Dose: 100 mls/hr Ceftazidime/Avibactam 0.94 gm/ (Sodium Chloride) 100 mls @ 50 mls/hr IV QOTHERDAY@2200 [facility] Last Admin: 01/12/17 21:14 Dose: 50 mls/hr Gentamicin Sulfate/Sodium Chloride (Gentamicin 100mg/100ml Ns) 100 mg in 100 mls @ 100 mls/hr IVPB [facility] Last Admin: 01/13/17 11:05 Dose: 100 mls/hr Levalbuterol HCl (Xopenex) 0.63 mg INH RQ8 PRN PRN Reason: Shortness of Breath Metoprolol Tartrate (Lopressor) 25 mg PO Q12 [facility] Last Admin: 01/14/17 09:50 Dose: 25 mg Nystatin (Nystop Topical Powder) 1 applic TOP BID [facility] Last Admin: 01/14/17 09:37 Dose: 1 applic Ondansetron HCl (Zofran Inj) 4 mg IVP Q6 PRN PRN Reason: Nausea/Vomiting Last Admin: 09/19/16 10:26 Dose: 4 mg Pantoprazole Sodium (Protonix Ec Tab) 40 mg PO DAILY [facility] Last Admin: 01/14/17 09:37 Dose: 40 mg Repaglinide (Prandin) 0.5 mg PO TIDAC [facility] Last Admin: 01/14/17 12:44 Dose: 0.5 mg Sennosides (Senokot Tab) 25.8 mg PO HS [facility] Last Admin: 01/13/17 21:15 Dose: 25.8 mg Sevelamer HCl (Renagel) 1,600 mg PO TIDWM [facility] Last Admin: 01/14/17 12:44 Dose: 1,600 mg Simethicone (Mylicon Chew Tab) 80 mg PO Q4H PRN PRN Reason: flatulence or "gassy feeling:" Last Admin: 01/07/17 16:57 Dose: 80 mg Topiramate (Topamax) 50 mg PO BID [facility] Last Admin: 01/14/17 09:39 Dose: 50 mg Vitamin B Complex/Vit C/Folic Acid (Nephro-Ajay) 1 tab PO DAILY [facility] Last Admin: 01/14/17 09:37 Dose: 1 tab - Labs Labs: 01/13/17 12:10 01/13/17 12:10 PT 15.3 Seconds (9.8-13.1) H 12/02/16 13:05 INR 1.4 (0.9-1.2) H 12/02/16 13:05 APTT 37.0 Seconds (25.6-37.1) 12/02/16 13:05 - Constitutional Appears: No Acute Distress - Head Exam Head Exam: NORMAL INSPECTION - Eye Exam Eye Exam: Normal appearance - Neck Exam Neck Exam: Normal Inspection - Respiratory Exam Respiratory Exam: NORMAL BREATHING PATTERN - Cardiovascular Exam Cardiovascular Exam: +S1, +S2 - Extremities Exam Extremities Exam: Normal Inspection - Neurological Exam Neurological Exam: Alert, Awake, Oriented x3 - Psychiatric Exam Psychiatric exam: Normal Mood - Skin Skin Exam: Dry Assessment and Plan - Assessment and Plan (Free Text) Plan: ESRD/anemia/HTN/sec hyperpth hd mwf per schedule, continue per schedule lytes reviewed anemia: epo with hd continue binders bp ok
--- NOTE | 2017-01-14 21:48 | CP.PCM.PN ---
Subjective - Date & Time of Evaluation Date of Evaluation: 01/14/17 Time of Evaluation: 19:40 - Subjective Subjective: She has normal Vital Signs. The wound is clean of Right BKA. She awake alert oriented and is moving OOB to Chair according to the plan. She is receiving Antibiotics and Physical Therapy. There is no seizures on Topamax. Blood sugar reading is 283. Objective - Vital Signs/Intake and Output Vital Signs (last 24 hours): Temp Pulse Resp BP Pulse Ox 98.6 F 98 H 18 134/86 97 01/14/17 16:37 01/14/17 16:37 01/14/17 16:37 01/14/17 16:37 01/14/17 16:37 - Medications Medications: Current Medications Acetaminophen (Tylenol 325mg Tab) 650 mg PO Q4 PRN PRN Reason: Fever >100.4 F Last Admin: 12/26/16 19:40 Dose: 650 mg Acetaminophen (Tylenol 325mg Tab) 650 mg PO Q4 PRN PRN Reason: Pain, moderate (4-7) Last Admin: 12/26/16 05:14 Dose: 650 mg Apixaban (Eliquis) 5 mg PO BID [facility] PRN Reason: Protocol Last Admin: 01/14/17 16:58 Dose: 5 mg Aspirin (Ecotrin) 81 mg PO DAILY [facility] Last Admin: 01/14/17 09:52 Dose: 81 mg Atorvastatin Calcium (Lipitor) 40 mg PO DAILY [facility] Last Admin: 01/14/17 09:39 Dose: 40 mg Calcium Carbonate (Oscal) 500 mg PO BIDWM [facility] Last Admin: 01/14/17 17:00 Dose: 500 mg Collagenase (Santyl) 1 applic TOP DAILY [facility] Last Admin: 01/14/17 09:57 Dose: 1 applic Diphenhydramine HCl (Benadryl) 25 mg PO Q6 PRN PRN Reason: Itching / Pruritus Last Admin: 12/17/16 09:53 Dose: 25 mg Docusate Sodium (Colace) 100 mg PO BID [facility] Last Admin: 01/14/17 16:59 Dose: 100 mg Epoetin Tha (Procrit) 20,000 unit IV MWF [facility] Last Admin: 01/13/17 11:31 Dose: 20,000 unit Ergocalciferol (Drisdol 50,000 Intl Units Cap) 1 cap PO WED [facility] Last Admin: 01/08/17 09:01 Dose: 1 cap Fluconazole (Diflucan) 100 mg PO DAILY [facility] Last Admin: 01/14/17 09:50 Dose: 100 mg Gabapentin (Neurontin) 300 mg PO TID [facility] Last Admin: 01/14/17 16:59 Dose: 300 mg Guaifenesin/Dextromethorphan (Robitussin Dm) 10 ml PO Q4 PRN PRN Reason: Cough Last Admin: 01/13/17 10:51 Dose: 10 ml Hydrocortisone (Anusol-Hc) 1 applic [place] BID PRN PRN Reason: Inflammation Hydromorphone HCl (Dilaudid) 1 mg IVP Q4H PRN PRN Reason: Pain, severe (8-10) Last Admin: 01/14/17 16:54 Dose: 1 mg Sodium Chloride (Sodium Chloride 0.45%) 500 mls @ 10 mls/hr IV .Q24H [facility] Last Admin: 01/14/17 17:01 Dose: Not Given Daptomycin 650 mg/ Sodium (Chloride) 100 mls @ 100 mls/hr IVPB [facility] [place] Stop: 01/15/17 09:59 Last Admin: 01/13/17 16:40 Dose: 100 mls/hr Ceftazidime/Avibactam 0.94 gm/ (Sodium Chloride) 100 mls @ 50 mls/hr IV QOTHERDAY@2200 [facility] Last Admin: 01/12/17 21:14 Dose: 50 mls/hr Gentamicin Sulfate/Sodium Chloride (Gentamicin 100mg/100ml Ns) 100 mg in 100 mls @ 100 mls/hr IVPB [facility] [place] Last Admin: 01/13/17 11:05 Dose: 100 mls/hr Levalbuterol HCl (Xopenex) 0.63 mg INH RQ8 PRN PRN Reason: Shortness of Breath Metoprolol Tartrate (Lopressor) 25 mg PO Q12 [facility] Last Admin: 01/14/17 09:50 Dose: 25 mg Nystatin (Nystop Topical Powder) 1 applic TOP BID [facility] Last Admin: 01/14/17 17:01 Dose: 1 applic Ondansetron HCl (Zofran Inj) 4 mg IVP Q6 PRN PRN Reason: Nausea/Vomiting Last Admin: 09/19/16 10:26 Dose: 4 mg Pantoprazole Sodium (Protonix Ec Tab) 40 mg PO DAILY [facility] Last Admin: 01/14/17 09:37 Dose: 40 mg Repaglinide (Prandin) 0.5 mg PO TIDAC [facility] Last Admin: 01/14/17 17:00 Dose: 0.5 mg Sennosides (Senokot Tab) 25.8 mg PO HS [facility] Last Admin: 01/13/17 21:15 Dose: 25.8 mg Sevelamer HCl (Renagel) 1,600 mg PO TIDWM [facility] Last Admin: 01/14/17 16:57 Dose: 1,600 mg Simethicone (Mylicon Chew Tab) 80 mg PO Q4H PRN PRN Reason: flatulence or "gassy feeling:" Last Admin: 01/07/17 16:57 Dose: 80 mg Topiramate (Topamax) 50 mg PO BID [facility] Last Admin: 01/14/17 17:02 Dose: 50 mg Vitamin B Complex/Vit C/Folic Acid (Nephro-Ajay) 1 tab PO DAILY [facility] Last Admin: 01/14/17 09:37 Dose: 1 tab - Labs Labs: 01/13/17 12:10 01/13/17 12:10 PT 15.3 Seconds (9.8-13.1) H 12/02/16 13:05 INR 1.4 (0.9-1.2) H 12/02/16 13:05 APTT 37.0 Seconds (25.6-37.1) 12/02/16 13:05 Assessment and Plan (1) Diabetes Status: Chronic (2) ESRD (end stage renal disease) Status: Chronic (3) Cellulitis of leg Status: Chronic (4) Hyperlipidemia Status: Chronic (5) Back pain Status: Acute (6) Bacteremia due to Gram-negative bacteria Status: Acute (7) Diabetes mellitus type 2 with peripheral artery disease Status: Chronic (8) PVD (peripheral vascular disease) Status: Chronic (9) Osteomyelitis of right leg Status: Acute
[2017-01-15] MEDS: Multivitamin Vitamin B Complex (Nephro-Vite) Tab PO SCH (09:07)
[2017-01-15] MEDS: Ergocalciferol 50,000 Intl Units Cap PO SCH (09:08)
[2017-01-15] MEDS: Pantoprazole 40 mg EC Tab PO SCH (09:09)
--- NOTE | 2017-01-15 09:40 | CP.PCM.PN ---
Subjective - Date & Time of Evaluation Date of Evaluation: 01/15/17 Time of Evaluation: 09:33 - Subjective Subjective: Patient had an episode of symptomatic hypotension yesterday - during a scary first attempt at transfer using a sliding board. She did not lose consciousness , but she felt "out of it' and people kept saying "Are you ok?" A copy of the physical therapy notes follows: " [Patient] practiced supine to sit and side scooting/ beasy board lateral transfer bed to bed mod A in praparation for lateral transfer to w/c but pt. had episode of low BP 79/52 initially symptommatic then asymptommatic. Staff used z slider to assit pt. back to bed (dependent)and RN monitering BP 2/2 new medication started 4 days ago." During this episode glucose was determined to be 283. So, hypoglycemia was definitely not the cause. There was no loss of consciousness, so seizure is unlikely cause. While this could be the effect of the metoprolol, it could also have been a vagal effect since the patient was frightened during the transfer training. Will discuss with Dr. Richard Shepard. The elevated glucose supports the view that fear played a role. Right BK wound vac is to be changed today (was not done yesterday). Patient continues on antibiotics. Wound care nurse Jessica Jaramillo said the right patella is about 50% granulation tissue with no bone exposure, so this is good. This morning the patient feels OK with no cough, dyspnea, fevers, or pain. Appetite and elimination are good. Objective - Vital Signs/Intake and Output Vital Signs (last 24 hours): Temp Pulse Resp BP Pulse Ox 98 F 102 H 20 120/64 95 01/15/17 08:42 01/15/17 08:42 01/15/17 08:42 01/15/17 08:42 01/15/17 08:42 - Medications Medications: Current Medications Acetaminophen (Tylenol 325mg Tab) 650 mg PO Q4 PRN PRN Reason: Fever >100.4 F Last Admin: 12/26/16 19:40 Dose: 650 mg Acetaminophen (Tylenol 325mg Tab) 650 mg PO Q4 PRN PRN Reason: Pain, moderate (4-7) Last Admin: 12/26/16 05:14 Dose: 650 mg Apixaban (Eliquis) 5 mg PO BID [facility] PRN Reason: Protocol Last Admin: 01/15/17 09:11 Dose: 5 mg Aspirin (Ecotrin) 81 mg PO DAILY [facility] Last Admin: 01/15/17 09:11 Dose: 81 mg Atorvastatin Calcium (Lipitor) 40 mg PO DAILY [facility] Last Admin: 01/15/17 09:11 Dose: 40 mg Calcium Carbonate (Oscal) 500 mg PO BIDWM [facility] Last Admin: 01/15/17 09:09 Dose: 500 mg Collagenase (Santyl) 1 applic TOP DAILY [facility] Last Admin: 01/14/17 09:57 Dose: 1 applic Diphenhydramine HCl (Benadryl) 25 mg PO Q6 PRN PRN Reason: Itching / Pruritus Last Admin: 12/17/16 09:53 Dose: 25 mg Docusate Sodium (Colace) 100 mg PO BID [facility] Last Admin: 01/15/17 09:06 Dose: 100 mg Epoetin Tha (Procrit) 20,000 unit IV [facility] Last Admin: 01/13/17 11:31 Dose: 20,000 unit Ergocalciferol (Drisdol 50,000 Intl Units Cap) 1 cap PO WED [facility] Last Admin: 01/15/17 09:08 Dose: 1 cap Fluconazole (Diflucan) 100 mg PO DAILY [facility] Last Admin: 01/15/17 09:07 Dose: 100 mg Gabapentin (Neurontin) 300 mg PO TID [facility] Last Admin: 01/15/17 09:08 Dose: 300 mg Guaifenesin/Dextromethorphan (Robitussin Dm) 10 ml PO Q4 PRN PRN Reason: Cough Last Admin: 01/13/17 10:51 Dose: 10 ml Hydrocortisone (Anusol-Hc) 1 applic [place] BID PRN PRN Reason: Inflammation Hydromorphone HCl (Dilaudid) 1 mg IVP Q4H PRN PRN Reason: Pain, severe (8-10) Last Admin: 01/15/17 05:34 Dose: 1 mg Sodium Chloride (Sodium Chloride 0.45%) 500 mls @ 10 mls/hr IV .Q24H [facility] Last Admin: 01/14/17 17:01 Dose: Not Given Daptomycin 650 mg/ Sodium (Chloride) 100 mls @ 100 mls/hr IVPB [facility] Stop: 01/15/17 09:59 Last Admin: 01/13/17 16:40 Dose: 100 mls/hr Ceftazidime/Avibactam 0.94 gm/ (Sodium Chloride) 100 mls @ 50 mls/hr IV QOTHERDAY@2200 [facility] Last Admin: 01/14/17 22:01 Dose: 50 mls/hr Gentamicin Sulfate/Sodium Chloride (Gentamicin 100mg/100ml Ns) 100 mg in 100 mls @ 100 mls/hr IVPB MWF [facility] Last Admin: 01/13/17 11:05 Dose: 100 mls/hr Levalbuterol HCl (Xopenex) 0.63 mg INH RQ8 PRN PRN Reason: Shortness of Breath Metoprolol Tartrate (Lopressor) 25 mg PO Q12 [facility] Last Admin: 01/14/17 21:58 Dose: 25 mg Nystatin (Nystop Topical Powder) 1 applic TOP BID [facility] Last Admin: 01/15/17 09:10 Dose: 1 applic Ondansetron HCl (Zofran Inj) 4 mg IVP Q6 PRN PRN Reason: Nausea/Vomiting Last Admin: 09/19/16 10:26 Dose: 4 mg Pantoprazole Sodium (Protonix Ec Tab) 40 mg PO DAILY [facility] Last Admin: 01/15/17 09:09 Dose: 40 mg Repaglinide (Prandin) 0.5 mg PO TIDAC [facility] Last Admin: 01/15/17 06:47 Dose: 0.5 mg Sennosides (Senokot Tab) 25.8 mg PO HS [facility] Last Admin: 01/14/17 22:02 Dose: 25.8 mg Sevelamer HCl (Renagel) 1,600 mg PO TIDWM [facility] Last Admin: 01/15/17 09:07 Dose: 1,600 mg Simethicone (Mylicon Chew Tab) 80 mg PO Q4H PRN PRN Reason: flatulence or "gassy feeling:" Last Admin: 01/07/17 16:57 Dose: 80 mg Topiramate (Topamax) 50 mg PO BID [facility] Last Admin: 01/15/17 09:10 Dose: 50 mg Vitamin B Complex/Vit C/Folic Acid (Nephro-Ajay) 1 tab PO DAILY [facility] Last Admin: 01/15/17 09:07 Dose: 1 tab - Labs Labs: 01/13/17 12:10 01/13/17 12:10 PT 15.3 Seconds (9.8-13.1) H 12/02/16 13:05 INR 1.4 (0.9-1.2) H 12/02/16 13:05 APTT 37.0 Seconds (25.6-37.1) 12/02/16 13:05 - Constitutional Appears: No Acute Distress - Head Exam Head Exam: NORMAL INSPECTION - Eye Exam Eye Exam: Normal appearance - ENT Exam ENT Exam: Mucous Membranes Moist - Neck Exam Neck Exam: Normal Inspection Additional comments: R subclavian catheter is intact. - Respiratory Exam Respiratory Exam: Clear to Ausculation Bilateral, NORMAL BREATHING PATTERN - Cardiovascular Exam Cardiovascular Exam: REGULAR RHYTHM, +S1, +S2 - GI/Abdominal Exam GI & Abdominal Exam: Soft, Normal Bowel Sounds - Back Exam Back Exam: NORMAL INSPECTION - Neurological Exam Neurological Exam: Alert, CN II-XII Intact, Oriented x3 - Psychiatric Exam Psychiatric exam: Normal Affect, Normal Mood - Skin Skin Exam: Dry, Normal Color, Warm Assessment and Plan (1) Near syncope Assessment & Plan: See subjective. The etiology is not clear. Will ask cardiology. We should observe closely at next transfer training attempt. Status: Acute (2) Status post below knee amputation of right lower extremity Assessment & Plan: Progress continues. Await wound eval today. Continue same treatment. Status: Acute (3) ESRD (end stage renal disease) on dialysis Status: Chronic (4) DM type 2 (diabetes mellitus, type 2) Status: Chronic (5) Coagulopathy Status: Chronic (6) Peripheral arterial occlusive disease Status: Chronic
--- NOTE | 2017-01-15 11:22 | CP.PCM.PN ---
Subjective - Date & Time of Evaluation Date of Evaluation: 01/15/17 Time of Evaluation: 11:19 - Subjective Subjective: She was seen on hemodialysis now Vital signs stable Ultrafiltration approximately 3500 mL plus Objective - Vital Signs/Intake and Output Vital Signs (last 24 hours): Temp Pulse Resp BP Pulse Ox 98 F 102 H 20 120/64 95 01/15/17 08:42 01/15/17 08:42 01/15/17 08:42 01/15/17 08:42 01/15/17 08:42 - Medications Medications: Current Medications Acetaminophen (Tylenol 325mg Tab) 650 mg PO Q4 PRN PRN Reason: Fever >100.4 F Last Admin: 12/26/16 19:40 Dose: 650 mg Acetaminophen (Tylenol 325mg Tab) 650 mg PO Q4 PRN PRN Reason: Pain, moderate (4-7) Last Admin: 12/26/16 05:14 Dose: 650 mg Apixaban (Eliquis) 5 mg PO BID [facility] PRN Reason: Protocol Last Admin: 01/15/17 09:11 Dose: 5 mg Aspirin (Ecotrin) 81 mg PO DAILY [facility] Last Admin: 01/15/17 09:11 Dose: 81 mg Atorvastatin Calcium (Lipitor) 40 mg PO DAILY [facility] Last Admin: 01/15/17 09:11 Dose: 40 mg Calcium Carbonate (Oscal) 500 mg PO BIDWM [facility] Last Admin: 01/15/17 09:09 Dose: 500 mg Collagenase (Santyl) 1 applic TOP DAILY [facility] Last Admin: 01/14/17 09:57 Dose: 1 applic Diphenhydramine HCl (Benadryl) 25 mg PO Q6 PRN PRN Reason: Itching / Pruritus Last Admin: 12/17/16 09:53 Dose: 25 mg Docusate Sodium (Colace) 100 mg PO BID [facility] Last Admin: 01/15/17 09:06 Dose: 100 mg Epoetin Tha (Procrit) 20,000 unit IV MWF [facility] Last Admin: 01/13/17 11:31 Dose: 20,000 unit Ergocalciferol (Drisdol 50,000 Intl Units Cap) 1 cap PO WED [facility] Last Admin: 01/15/17 09:08 Dose: 1 cap Fluconazole (Diflucan) 100 mg PO DAILY [facility] Last Admin: 01/15/17 09:07 Dose: 100 mg Gabapentin (Neurontin) 300 mg PO TID [facility] Last Admin: 01/15/17 09:08 Dose: 300 mg Guaifenesin/Dextromethorphan (Robitussin Dm) 10 ml PO Q4 PRN PRN Reason: Cough Last Admin: 01/13/17 10:51 Dose: 10 ml Hydrocortisone (Anusol-Hc) 1 applic [place] BID PRN PRN Reason: Inflammation Hydromorphone HCl (Dilaudid) 1 mg IVP Q4H PRN PRN Reason: Pain, severe (8-10) Last Admin: 01/15/17 10:30 Dose: 1 mg Sodium Chloride (Sodium Chloride 0.45%) 500 mls @ 10 mls/hr IV .Q24H [facility] Last Admin: 01/14/17 17:01 Dose: Not Given Ceftazidime/Avibactam 0.94 gm/ (Sodium Chloride) 100 mls @ 50 mls/hr IV QOTHERDAY@2200 [facility] Last Admin: 01/14/17 22:01 Dose: 50 mls/hr Gentamicin Sulfate/Sodium Chloride (Gentamicin 100mg/100ml Ns) 100 mg in 100 mls @ 100 mls/hr IVPB MWF [facility] Last Admin: 01/13/17 11:05 Dose: 100 mls/hr Levalbuterol HCl (Xopenex) 0.63 mg INH RQ8 PRN PRN Reason: Shortness of Breath Metoprolol Tartrate (Lopressor) 25 mg PO Q12 [facility] Last Admin: 01/14/17 21:58 Dose: 25 mg Nystatin (Nystop Topical Powder) 1 applic TOP BID [facility] Last Admin: 01/15/17 09:10 Dose: 1 applic Ondansetron HCl (Zofran Inj) 4 mg IVP Q6 PRN PRN Reason: Nausea/Vomiting Last Admin: 09/19/16 10:26 Dose: 4 mg Pantoprazole Sodium (Protonix Ec Tab) 40 mg PO DAILY [facility] Last Admin: 01/15/17 09:09 Dose: 40 mg Repaglinide (Prandin) 0.5 mg PO TIDAC [facility] Last Admin: 01/15/17 06:47 Dose: 0.5 mg Sennosides (Senokot Tab) 25.8 mg PO HS [facility] Last Admin: 01/14/17 22:02 Dose: 25.8 mg Sevelamer HCl (Renagel) 1,600 mg PO TIDWM [facility] Last Admin: 01/15/17 09:07 Dose: 1,600 mg Simethicone (Mylicon Chew Tab) 80 mg PO Q4H PRN PRN Reason: flatulence or "gassy feeling:" Last Admin: 01/07/17 16:57 Dose: 80 mg Topiramate (Topamax) 50 mg PO BID [facility] Last Admin: 01/15/17 09:10 Dose: 50 mg Vitamin B Complex/Vit C/Folic Acid (Nephro-Ajay) 1 tab PO DAILY [facility] Last Admin: 01/15/17 09:07 Dose: 1 tab - Labs Labs: 01/13/17 12:10 01/13/17 12:10 PT 15.3 Seconds (9.8-13.1) H 12/02/16 13:05 INR 1.4 (0.9-1.2) H 12/02/16 13:05 APTT 37.0 Seconds (25.6-37.1) 12/02/16 13:05 - Constitutional Appears: No Acute Distress - ENT Exam ENT Exam: Mucous Membranes Moist - Respiratory Exam Respiratory Exam: absent: Chest Wall Tenderness - Cardiovascular Exam Cardiovascular Exam: absent: JVD, Rubs - Back Exam Back Exam: absent: CVA tenderness (L), CVA tenderness (R) - Neurological Exam Neurological Exam: Alert Assessment and Plan (1) ESRD (end stage renal disease) Assessment & Plan: Tolerating hemodialysis well Sodium bath 138 Potassium bath 2 milliequivalents Bicarbonate bath 34 The rest of the medical problem as stated before in summary End stage renal disease on hemodialysis (MWF) via permacath: dialysis today as ordered. continue with Nephrovite 1 tab/day. Anemia: PRBC as needed. On MARTHA as Epogen 20,000 with HD. last Hb 11.2. if remains in this range then will decrease dose of epogen Hyperphosphatemia: continue with current meds as renagel 1600 TID, last phos 4.8 Secondary hyperparathyroidism with Vit D Deficiency: hold sensipar Last PTH level 63 Hypertension controlled: BP mostly on low side Glycemic control, Dialysis consistent diet Further work up/management as per primary team. 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 Dose meds/antibiotics for ESRD status. Avoid fleets enema/magnesium based laxatives. Status: Chronic (2) Cellulitis of leg Status: Chronic
[2017-01-15] MEDS ORDERED: EPOETIN ALFA 10,000 UNIT/ML ML IV SCH (12:15)
[2017-01-15] MEDS: Gentamicin 100mg/100ml NS 100 MG/100 ML BAG IVPB SCH (12:48)
[2017-01-15] MEDS: Epoetin Alfa 20000 UNIT/ML Inj IV SCH (12:51)
[2017-01-15] MEDS: Santyl Collagenase OINTMENT TOP SCH (16:37)
--- NOTE | 2017-01-15 17:17 | PN ---
ENDOCRINOLOGY FOLLOWUP NOTE ROOM: 661. SUMMARY: This is a 46-year-old female with recent uncontrolled type 2 insulin requiring diabetes, now being followed closely for metabolic management. Her glucose values are fluctuating, but improved and her oral intake also has been variable but improved as noted. Her latest glucose levels have ranged from 169-283 mg/dl. Her latest chemistry showed a BUN of 42, sodium 139, potassium 4.4, chloride 101, CO2 21, glucose 169, and creatinine 7.1. So at this time, we will continue the low-dose oral hypoglycemic therapy, but we will increase the dosing of the Prandin to 1 mg p.o. t.i.d. before meals as ordered. We will obtain serial chemistries and supplement accordingly as needed. We will follow and advise accordingly. Irene Ambrose MD
--- NOTE | 2017-01-16 00:42 | CP.PCM.PN ---
Subjective - Date & Time of Evaluation Date of Evaluation: 01/15/17 Time of Evaluation: 21:25 - Subjective Subjective: He had a spell of Hypotension while undergoing a PT procedure. This might be due to a brief Vasovagal spell or due to pain. It is unlikely to be due to a seizure spell. We might get an EEG and observe her condition. Blood sugar was high above 220/ Objective - Vital Signs/Intake and Output Vital Signs (last 24 hours): Temp Pulse Resp BP Pulse Ox 98.7 F 108 H 20 105/67 95 01/16/17 00:26 01/16/17 00:26 01/16/17 00:26 01/16/17 00:26 01/16/17 00:26 - Medications Medications: Current Medications Acetaminophen (Tylenol 325mg Tab) 650 mg PO Q4 PRN PRN Reason: Fever >100.4 F Last Admin: 12/26/16 19:40 Dose: 650 mg Acetaminophen (Tylenol 325mg Tab) 650 mg PO Q4 PRN PRN Reason: Pain, moderate (4-7) Last Admin: 12/26/16 05:14 Dose: 650 mg Apixaban (Eliquis) 5 mg PO BID [facility] PRN Reason: Protocol Last Admin: 01/15/17 16:27 Dose: 5 mg Aspirin (Ecotrin) 81 mg PO DAILY [facility] Last Admin: 01/15/17 09:11 Dose: 81 mg Atorvastatin Calcium (Lipitor) 40 mg PO DAILY [facility] Last Admin: 01/15/17 09:11 Dose: 40 mg Calcium Carbonate (Oscal) 500 mg PO BIDWM [facility] Last Admin: 01/15/17 16:28 Dose: 500 mg Collagenase (Santyl) 1 applic TOP DAILY [facility] Last Admin: 01/15/17 16:37 Dose: Not Given Diphenhydramine HCl (Benadryl) 25 mg PO Q6 PRN PRN Reason: Itching / Pruritus Last Admin: 12/17/16 09:53 Dose: 25 mg Docusate Sodium (Colace) 100 mg PO BID [facility] Last Admin: 01/15/17 16:26 Dose: 100 mg Epoetin Tha (Procrit) 20,000 unit IV MWF [facility] Last Admin: 01/15/17 12:51 Dose: Not Given Ergocalciferol (Drisdol 50,000 Intl Units Cap) 1 cap PO WED [facility] Last Admin: 01/15/17 09:08 Dose: 1 cap Fluconazole (Diflucan) 100 mg PO DAILY [facility] Last Admin: 01/15/17 09:07 Dose: 100 mg Gabapentin (Neurontin) 300 mg PO TID [facility] Last Admin: 01/15/17 16:27 Dose: 300 mg Guaifenesin/Dextromethorphan (Robitussin Dm) 10 ml PO Q4 PRN PRN Reason: Cough Last Admin: 01/13/17 10:51 Dose: 10 ml Hydrocortisone (Anusol-Hc) 1 applic [place] BID PRN PRN Reason: Inflammation Hydromorphone HCl (Dilaudid) 1 mg IVP Q4H PRN PRN Reason: Pain, severe (8-10) Last Admin: 01/15/17 20:46 Dose: 1 mg Sodium Chloride (Sodium Chloride 0.45%) 500 mls @ 10 mls/hr IV .Q24H [facility] Last Admin: 01/15/17 16:37 Dose: Not Given Ceftazidime/Avibactam 0.94 gm/ (Sodium Chloride) 100 mls @ 50 mls/hr IV QOTHERDAY@2200 [facility] Last Admin: 01/14/17 22:01 Dose: 50 mls/hr Gentamicin Sulfate/Sodium Chloride (Gentamicin 100mg/100ml Ns) 100 mg in 100 mls @ 100 mls/hr IVPB MWF [facility] Last Admin: 01/15/17 12:48 Dose: 100 mls/hr Daptomycin 650 mg/ Sodium (Chloride) 100 mls @ 100 mls/hr IVPB DAILY [facility] Stop: 01/27/17 09:59 Levalbuterol HCl (Xopenex) 0.63 mg INH RQ8 PRN PRN Reason: Shortness of Breath Metoprolol Tartrate (Lopressor) 25 mg PO Q12 [facility] Last Admin: 01/15/17 20:47 Dose: 25 mg Nystatin (Nystop Topical Powder) 1 applic TOP BID [facility] Last Admin: 01/15/17 16:28 Dose: Not Given Ondansetron HCl (Zofran Inj) 4 mg IVP Q6 PRN PRN Reason: Nausea/Vomiting Last Admin: 09/19/16 10:26 Dose: 4 mg Pantoprazole Sodium (Protonix Ec Tab) 40 mg PO DAILY [facility] Last Admin: 01/15/17 09:09 Dose: 40 mg Repaglinide (Prandin) 1 mg PO TIDAC [facility] Last Admin: 01/15/17 16:31 Dose: 1 mg Sennosides (Senokot Tab) 25.8 mg PO HS [facility] Last Admin: 01/15/17 21:44 Dose: 25.8 mg Sevelamer HCl (Renagel) 1,600 mg PO TIDWM [facility] Last Admin: 01/15/17 16:27 Dose: 1,600 mg Simethicone (Mylicon Chew Tab) 80 mg PO Q4H PRN PRN Reason: flatulence or "gassy feeling:" Last Admin: 01/07/17 16:57 Dose: 80 mg Topiramate (Topamax) 50 mg PO BID [facility] Last Admin: 01/15/17 16:29 Dose: 50 mg Vitamin B Complex/Vit C/Folic Acid (Nephro-Ajay) 1 tab PO DAILY [facility] Last Admin: 01/15/17 09:07 Dose: 1 tab - Labs Labs: 01/13/17 12:10 01/13/17 12:10 PT 15.3 Seconds (9.8-13.1) H 12/02/16 13:05 INR 1.4 (0.9-1.2) H 12/02/16 13:05 APTT 37.0 Seconds (25.6-37.1) 12/02/16 13:05 Assessment and Plan (1) Diabetes Status: Chronic (2) ESRD (end stage renal disease) Status: Chronic (3) Cellulitis of leg Status: Chronic (4) Hyperlipidemia Status: Chronic (5) Back pain Status: Acute (6) Bacteremia due to Gram-negative bacteria Status: Acute (7) Diabetes mellitus type 2 with peripheral artery disease Status: Chronic (8) PVD (peripheral vascular disease) Status: Chronic (9) Osteomyelitis of right leg Status: Acute
[2017-01-16] MEDS: Multivitamin Vitamin B Complex (Nephro-Vite) Tab PO SCH (08:58)
[2017-01-16] MEDS: Pantoprazole 40 mg EC Tab PO SCH (09:00)
[2017-01-16] MEDS: Santyl Collagenase OINTMENT TOP SCH (09:01)
--- NOTE | 2017-01-16 10:36 | CP.PCM.PN ---
Subjective - Date & Time of Evaluation Date of Evaluation: 01/16/17 Time of Evaluation: 10:34 - Subjective Subjective: No new event reported Patient appears to be stable Vital sign noted Chest no rales Heart no rubs The impression and plan Continue hemodialysis as scheduled [facility] The rest of the medical problem as noted as per primary team and as noted on my previous notes Objective - Vital Signs/Intake and Output Vital Signs (last 24 hours): Temp Pulse Resp BP Pulse Ox 98.2 F 97 H 18 106/64 100 01/16/17 07:26 01/16/17 08:57 01/16/17 07:26 01/16/17 08:57 01/16/17 07:26 - Medications Medications: Current Medications Acetaminophen (Tylenol 325mg Tab) 650 mg PO Q4 PRN PRN Reason: Fever >100.4 F Last Admin: 12/26/16 19:40 Dose: 650 mg Acetaminophen (Tylenol 325mg Tab) 650 mg PO Q4 PRN PRN Reason: Pain, moderate (4-7) Last Admin: 12/26/16 05:14 Dose: 650 mg Apixaban (Eliquis) 5 mg PO BID [facility] PRN Reason: Protocol Last Admin: 01/16/17 08:55 Dose: 5 mg Aspirin (Ecotrin) 81 mg PO DAILY [facility] Last Admin: 01/16/17 08:55 Dose: 81 mg Atorvastatin Calcium (Lipitor) 40 mg PO DAILY [facility] Last Admin: 01/16/17 08:56 Dose: 40 mg Calcium Carbonate (Oscal) 500 mg PO BIDWM [facility] Last Admin: 01/16/17 08:59 Dose: 500 mg Collagenase (Santyl) 1 applic TOP DAILY [facility] Last Admin: 01/16/17 09:01 Dose: 1 applic Diphenhydramine HCl (Benadryl) 25 mg PO Q6 PRN PRN Reason: Itching / Pruritus Last Admin: 12/17/16 09:53 Dose: 25 mg Docusate Sodium (Colace) 100 mg PO BID [facility] Last Admin: 01/16/17 08:53 Dose: 100 mg Epoetin Tha (Procrit) 8,000 unit IV [facility] Ergocalciferol (Drisdol 50,000 Intl Units Cap) 1 cap PO WED [facility] Last Admin: 01/15/17 09:08 Dose: 1 cap Fluconazole (Diflucan) 100 mg PO DAILY [facility] Last Admin: 01/16/17 08:55 Dose: 100 mg Gabapentin (Neurontin) 300 mg PO TID [facility] Last Admin: 01/16/17 08:59 Dose: 300 mg Guaifenesin/Dextromethorphan (Robitussin Dm) 10 ml PO Q4 PRN PRN Reason: Cough Last Admin: 01/13/17 10:51 Dose: 10 ml Hydrocortisone (Anusol-Hc) 1 applic [place] BID PRN PRN Reason: Inflammation Hydromorphone HCl (Dilaudid) 1 mg IVP Q4H PRN PRN Reason: Pain, severe (8-10) Last Admin: 01/16/17 04:19 Dose: 1 mg Sodium Chloride (Sodium Chloride 0.45%) 500 mls @ 10 mls/hr IV .Q24H [facility] Last Admin: 01/15/17 16:37 Dose: Not Given Ceftazidime/Avibactam 0.94 gm/ (Sodium Chloride) 100 mls @ 50 mls/hr IV QOTHERDAY@2200 [facility] Last Admin: 01/14/17 22:01 Dose: 50 mls/hr Gentamicin Sulfate/Sodium Chloride (Gentamicin 100mg/100ml Ns) 100 mg in 100 mls @ 100 mls/hr IVPB MWF [facility] Last Admin: 01/15/17 12:48 Dose: 100 mls/hr Daptomycin 650 mg/ Sodium (Chloride) 100 mls @ 100 mls/hr IVPB DAILY [facility] Stop: 01/27/17 09:59 Levalbuterol HCl (Xopenex) 0.63 mg INH RQ8 PRN PRN Reason: Shortness of Breath Metoprolol Tartrate (Lopressor) 25 mg PO Q12 [facility] Last Admin: 01/16/17 08:57 Dose: 25 mg Nystatin (Nystop Topical Powder) 1 applic TOP BID [facility] Last Admin: 01/16/17 09:00 Dose: 1 applic Ondansetron HCl (Zofran Inj) 4 mg IVP Q6 PRN PRN Reason: Nausea/Vomiting Last Admin: 09/19/16 10:26 Dose: 4 mg Pantoprazole Sodium (Protonix Ec Tab) 40 mg PO DAILY [facility] Last Admin: 01/16/17 09:00 Dose: 40 mg Repaglinide (Prandin) 1 mg PO TIDAC [facility] Last Admin: 01/16/17 06:45 Dose: 1 mg Sennosides (Senokot Tab) 25.8 mg PO HS [facility] Last Admin: 01/15/17 21:44 Dose: 25.8 mg Sevelamer HCl (Renagel) 1,600 mg PO TIDWM [facility] Last Admin: 01/16/17 09:00 Dose: 1,600 mg Simethicone (Mylicon Chew Tab) 80 mg PO Q4H PRN PRN Reason: flatulence or "gassy feeling:" Last Admin: 01/07/17 16:57 Dose: 80 mg Topiramate (Topamax) 50 mg PO BID [facility] Last Admin: 01/16/17 09:02 Dose: 50 mg Vitamin B Complex/Vit C/Folic Acid (Nephro-Ajay) 1 tab PO DAILY [facility] Last Admin: 01/16/17 08:58 Dose: 1 tab - Labs Labs: 01/13/17 12:10 01/13/17 12:10 PT 15.3 Seconds (9.8-13.1) H 12/02/16 13:05 INR 1.4 (0.9-1.2) H 12/02/16 13:05 APTT 37.0 Seconds (25.6-37.1) 12/02/16 13:05 Assessment and Plan (1) ESRD (end stage renal disease) Status: Chronic (2) Cellulitis of leg Status: Chronic
--- NOTE | 2017-01-16 14:40 | CP.PCM.PN ---
Subjective - Date & Time of Evaluation Date of Evaluation: 01/16/17 Time of Evaluation: 14:36 - Subjective Subjective: Pictures of right BK wound and right patella sent to me. It appears that the BK wound is granulating in very well with no signs of infection. The right patella is now about 50 % granulation. I will await recommendations by Dr. Doran. Meanwhile pt continues on current antibiotics. Dr. Ambrose has increased the Prandin to 1 mg tid before meals for better glycemic control. She ordered CBC and CMP for tomorrow. Will add gentamicin level. Dr. Maguire has ordered an EEG to rule out possible seizure (see notes of yesterday with near syncopal episode). Dr. Alta Guadarrama's note appreciated. No major changes in condition. Objective - Vital Signs/Intake and Output Vital Signs (last 24 hours): Temp Pulse Resp BP Pulse Ox 98.2 F 97 H 18 106/64 100 01/16/17 07:26 01/16/17 08:57 01/16/17 07:26 01/16/17 08:57 01/16/17 07:26 - Medications Medications: Current Medications Acetaminophen (Tylenol 325mg Tab) 650 mg PO Q4 PRN PRN Reason: Fever >100.4 F Last Admin: 12/26/16 19:40 Dose: 650 mg Acetaminophen (Tylenol 325mg Tab) 650 mg PO Q4 PRN PRN Reason: Pain, moderate (4-7) Last Admin: 12/26/16 05:14 Dose: 650 mg Apixaban (Eliquis) 5 mg PO BID [facility] PRN Reason: Protocol Last Admin: 01/16/17 08:55 Dose: 5 mg Aspirin (Ecotrin) 81 mg PO DAILY [facility] Last Admin: 01/16/17 08:55 Dose: 81 mg Atorvastatin Calcium (Lipitor) 40 mg PO DAILY [facility] Last Admin: 01/16/17 08:56 Dose: 40 mg Calcium Carbonate (Oscal) 500 mg PO BIDWM [facility] Last Admin: 01/16/17 08:59 Dose: 500 mg Collagenase (Santyl) 1 applic TOP DAILY [facility] Last Admin: 01/16/17 09:01 Dose: 1 applic Diphenhydramine HCl (Benadryl) 25 mg PO Q6 PRN PRN Reason: Itching / Pruritus Last Admin: 12/17/16 09:53 Dose: 25 mg Docusate Sodium (Colace) 100 mg PO BID [facility] Last Admin: 01/16/17 08:53 Dose: 100 mg Epoetin Tha (Procrit) 8,000 unit [place] [facility] [place]gocalciferol (Drisdol 50,000 Intl Units Cap) 1 cap PO WED [facility] Last Admin: 01/15/17 09:08 Dose: 1 cap Fluconazole (Diflucan) 100 mg PO DAILY [facility] Last Admin: 01/16/17 08:55 Dose: 100 mg Gabapentin (Neurontin) 300 mg PO TID [facility] Last Admin: 01/16/17 12:53 Dose: 300 mg Guaifenesin/Dextromethorphan (Robitussin Dm) 10 ml PO Q4 PRN PRN Reason: Cough Last Admin: 01/13/17 10:51 Dose: 10 ml Hydrocortisone (Anusol-Hc) 1 applic [place] BID PRN PRN Reason: Inflammation Hydromorphone HCl (Dilaudid) 1 mg IVP Q4H PRN PRN Reason: Pain, severe (8-10) Last Admin: 01/16/17 11:36 Dose: 1 mg Sodium Chloride (Sodium Chloride 0.45%) 500 mls @ 10 mls/hr IV .Q24H [facility] Last Admin: 01/15/17 16:37 Dose: Not Given Ceftazidime/Avibactam 0.94 gm/ (Sodium Chloride) 100 mls @ 50 mls/hr IV QOTHERDAY@2200 [facility] Last Admin: 01/14/17 22:01 Dose: 50 mls/hr Gentamicin Sulfate/Sodium Chloride (Gentamicin 100mg/100ml Ns) 100 mg in 100 mls @ 100 mls/hr [place]PB [facility] Last Admin: 01/15/17 12:48 Dose: 100 mls/hr Daptomycin 650 mg/ Sodium (Chloride) 100 mls @ 100 mls/hr IVPB DAILY [facility] Stop: 01/27/17 09:59 Levalbuterol HCl (Xopenex) 0.63 mg INH RQ8 PRN PRN Reason: Shortness of Breath Metoprolol Tartrate (Lopressor) 25 mg PO Q12 [facility] Last Admin: 01/16/17 08:57 Dose: 25 mg Nystatin (Nystop Topical Powder) 1 applic TOP BID [facility] Last Admin: 01/16/17 09:00 Dose: 1 applic Ondansetron HCl (Zofran Inj) 4 mg IVP Q6 PRN PRN Reason: Nausea/Vomiting Last Admin: 09/19/16 10:26 Dose: 4 mg Pantoprazole Sodium (Protonix Ec Tab) 40 mg PO DAILY [facility] Last Admin: 01/16/17 09:00 Dose: 40 mg Repaglinide (Prandin) 1 mg PO TIDAC [facility] Last Admin: 01/16/17 12:54 Dose: 1 mg Sennosides (Senokot Tab) 25.8 mg PO HS [facility] Last Admin: 01/15/17 21:44 Dose: 25.8 mg Sevelamer HCl (Renagel) 1,600 mg PO TIDWM [facility] Last Admin: 01/16/17 12:55 Dose: 1,600 mg Simethicone (Mylicon Chew Tab) 80 mg PO Q4H PRN PRN Reason: flatulence or "gassy feeling:" Last Admin: 01/07/17 16:57 Dose: 80 mg Topiramate (Topamax) 50 mg PO BID [facility] Last Admin: 01/16/17 09:02 Dose: 50 mg Vitamin B Complex/Vit C/Folic Acid (Nephro-Ajay) 1 tab PO DAILY [facility] Last Admin: 01/16/17 08:58 Dose: 1 tab - Labs Labs: 01/13/17 12:10 01/13/17 12:10 PT 15.3 Seconds (9.8-13.1) H 12/02/16 13:05 INR 1.4 (0.9-1.2) H 12/02/16 13:05 APTT 37.0 Seconds (25.6-37.1) 12/02/16 13:05 - Constitutional Appears: No Acute Distress - Head Exam Head Exam: NORMAL INSPECTION - Eye Exam Eye Exam: Normal appearance - ENT Exam ENT Exam: Mucous Membranes Moist - Neck Exam Neck Exam: Normal Inspection - Respiratory Exam Respiratory Exam: Clear to Ausculation Bilateral, NORMAL BREATHING PATTERN - Cardiovascular Exam Cardiovascular Exam: REGULAR RHYTHM, +S1, +S2 - GI/Abdominal Exam GI & Abdominal Exam: Soft - Extremities Exam Additional comments: Dressings intact. See subjective. L femoral PICC line intact. Hands warm. - Back Exam Back Exam: NORMAL INSPECTION - Neurological Exam Neurological Exam: Alert, CN II-XII Intact, Oriented x3 - Psychiatric Exam Psychiatric exam: Normal Affect, Normal Mood - Skin Skin Exam: Dry, Normal Color, Warm Additional comments: See notes by wound care nurse. Assessment and Plan (1) Near syncope Assessment & Plan: No recurrences. Await results of EEG ordered by Dr. Maguire. Check blood work. Status: Acute (2) Status post below knee amputation of right lower extremity Assessment & Plan: Making progress. Will await evaluation by Dr. Doran. continue same antibiotics. check gentamicin level. Status: Acute (3) ESRD (end stage renal disease) on dialysis Status: Chronic (4) DM type 2 (diabetes mellitus, type 2) Assessment & Plan: On increased Prandin per Dr. Ambrose. Status: Chronic (5) Coagulopathy Status: Chronic (6) Peripheral arterial occlusive disease Status: Chronic
--- NOTE | 2017-01-16 16:14 | EEG ---
DATE: 01/16/2017 ELECTROENCEPHALOGRAM CONDITION OF THE RECORDING: Drowsy. DIAGNOSIS: Evaluate for seizure. MEDICATIONS: Reviewed by nurse reconciliation sheet. INTERPRETATION: This is a 16-channel international recording. The background activity of this tracing was composed of 8 to 9 cycles per second. There was small amount of beta activity 16 to 20 cycles per second seen during this recording. There was small amount of theta activity 5 to 7 cycles per second seen during this tracing. Drowsiness was characterized by the mixed beta and theta activities. The sleep was characterized by vertex transient waves, sleep spindles and bilateral slowing. Photic stimulation showed no changes in the tracing. No paroxysmal activities noted in this recording. CONCLUSION: This is a normal drowsy EEG. No evidence of new epileptiform activity. Please clinically correlate. Magno Hernandez MD
--- NOTE | 2017-01-16 21:03 | CP.PCM.PN ---
Subjective - Date & Time of Evaluation Date of Evaluation: 01/16/17 Time of Evaluation: 19:15 - Subjective Subjective: Negative EEG, No evidence of seizures on EEG. She is more stable, no seizures are reported No near syncopal spells are seen. She is doing better. She is eating, talking, oriented, the wound is healing well and is well taken care of. Blood sugar is under control and the Vital Signs are stable, no tachycardia no Hypertension. She is receiving hemo dialysis as routine, M,W,F. She is receiving Antibiotics. Objective - Vital Signs/Intake and Output Vital Signs (last 24 hours): Temp Pulse Resp BP Pulse Ox 97.7 F 103 H 19 101/57 L 95 01/16/17 16:06 01/16/17 16:06 01/16/17 16:06 01/16/17 16:06 01/16/17 16:06 - Medications Medications: Current Medications Acetaminophen (Tylenol 325mg Tab) 650 mg PO Q4 PRN PRN Reason: Fever >100.4 F Last Admin: 12/26/16 19:40 Dose: 650 mg Acetaminophen (Tylenol 325mg Tab) 650 mg PO Q4 PRN PRN Reason: Pain, moderate (4-7) Last Admin: 12/26/16 05:14 Dose: 650 mg Apixaban (Eliquis) 5 mg PO BID [facility] PRN Reason: Protocol Last Admin: 01/16/17 16:31 Dose: 5 mg Aspirin (Ecotrin) 81 mg PO DAILY [facility] Last Admin: 01/16/17 08:55 Dose: 81 mg Atorvastatin Calcium (Lipitor) 40 mg PO DAILY [facility] Last Admin: 01/16/17 08:56 Dose: 40 mg Calcium Carbonate (Oscal) 500 mg PO BIDWM [facility] Last Admin: 01/16/17 16:32 Dose: 500 mg Collagenase (Santyl) 1 applic TOP DAILY [facility] Last Admin: 01/16/17 09:01 Dose: 1 applic Diphenhydramine HCl (Benadryl) 25 mg PO Q6 PRN PRN Reason: Itching / Pruritus Last Admin: 12/17/16 09:53 Dose: 25 mg Docusate Sodium (Colace) 100 mg PO BID [facility] Last Admin: 01/16/17 16:30 Dose: 100 mg Epoetin Tha (Procrit) 8,000 unit IV [facility] Ergocalciferol (Drisdol 50,000 Intl Units Cap) 1 cap PO WED [facility] Last Admin: 01/15/17 09:08 Dose: 1 cap Fluconazole (Diflucan) 100 mg PO DAILY [facility] Last Admin: 01/16/17 08:55 Dose: 100 mg Gabapentin (Neurontin) 300 mg PO TID [facility] Last Admin: 01/16/17 16:32 Dose: 300 mg Guaifenesin/Dextromethorphan (Robitussin Dm) 10 ml PO Q4 PRN PRN Reason: Cough Last Admin: 01/13/17 10:51 Dose: 10 ml Hydrocortisone (Anusol-Hc) 1 applic [place] BID PRN PRN Reason: Inflammation Hydromorphone HCl (Dilaudid) 1 mg IVP Q4H PRN PRN Reason: Pain, severe (8-10) Last Admin: 01/16/17 15:58 Dose: 1 mg Sodium Chloride (Sodium Chloride 0.45%) 500 mls @ 10 mls/hr IV .Q24H [facility] Last Admin: 01/16/17 16:36 Dose: 10 mls/hr Ceftazidime/Avibactam 0.94 gm/ (Sodium Chloride) 100 mls @ 50 mls/hr IV QOTHERDAY@2200 [facility] Last Admin: 01/14/17 22:01 Dose: 50 mls/hr Gentamicin Sulfate/Sodium Chloride (Gentamicin 100mg/100ml Ns) 100 mg in 100 mls @ 100 mls/hr IVPB [facility] Last Admin: 01/15/17 12:48 Dose: 100 mls/hr Daptomycin 650 mg/ Sodium (Chloride) 100 mls @ 100 mls/hr IVPB [facility] Stop: 02/10/17 09:59 Levalbuterol HCl (Xopenex) 0.63 mg INH RQ8 PRN PRN Reason: Shortness of Breath Metoprolol Tartrate (Lopressor) 25 mg PO Q12 [facility] Last Admin: 01/16/17 08:57 Dose: 25 mg Nystatin (Nystop Topical Powder) 1 applic TOP BID [facility] Last Admin: 01/16/17 16:32 Dose: 1 applic Ondansetron HCl (Zofran Inj) 4 mg IVP Q6 PRN PRN Reason: Nausea/Vomiting Last Admin: 09/19/16 10:26 Dose: 4 mg Pantoprazole Sodium (Protonix Ec Tab) 40 mg PO DAILY [facility] Last Admin: 01/16/17 09:00 Dose: 40 mg Repaglinide (Prandin) 1 mg PO TIDAC [facility] Last Admin: 01/16/17 16:33 Dose: 1 mg Sennosides (Senokot Tab) 25.8 mg PO HS [facility] Last Admin: 01/15/17 21:44 Dose: 25.8 mg Sevelamer HCl (Renagel) 1,600 mg PO TIDWM [facility] Last Admin: 01/16/17 16:33 Dose: 1,600 mg Simethicone (Mylicon Chew Tab) 80 mg PO Q4H PRN PRN Reason: flatulence or "gassy feeling:" Last Admin: 01/07/17 16:57 Dose: 80 mg Topiramate (Topamax) 50 mg PO BID [facility] Last Admin: 01/16/17 16:34 Dose: 50 mg Vitamin B Complex/Vit C/Folic Acid (Nephro-Ajay) 1 tab PO DAILY [facility] Last Admin: 01/16/17 08:58 Dose: 1 tab - Labs Labs: 01/13/17 12:10 01/13/17 12:10 PT 15.3 Seconds (9.8-13.1) H 12/02/16 13:05 INR 1.4 (0.9-1.2) H 12/02/16 13:05 APTT 37.0 Seconds (25.6-37.1) 12/02/16 13:05 Assessment and Plan (1) Diabetes Status: Chronic (2) ESRD (end stage renal disease) Status: Chronic (3) Cellulitis of leg Status: Chronic (4) Hyperlipidemia Status: Chronic (5) Back pain Status: Acute (6) Bacteremia due to Gram-negative bacteria Status: Acute (7) Diabetes mellitus type 2 with peripheral artery disease Status: Chronic (8) PVD (peripheral vascular disease) Status: Chronic (9) Osteomyelitis of right leg Status: Acute
--- NOTE | 2017-01-17 07:12 | PN ---
ENDOCRINOLOGY FOLLOWUP NOTE LOCATION: Room #661. This is a 46-year-old female with recent uncontrolled type 2 diabetes, currently on oral hypoglycemic drug therapy as given, is now being followed closely for metabolic management. Her glycemic levels are fluctuating because of the variability of her oral intake as noted thereof. Her latest glucose levels have ranged from 112 to 169 mg/dL. Her latest chemistry showed a BUN of 42, sodium 139, potassium 4.4, chloride 101, CO2 of 21, glucose 169 and creatinine 7.1. At this time, we will continue with the same low dose of oral hypoglycemic drug therapy as given with Prandin given at 1 mg p.o. t.i.d. before meals as given. We will titrate incrementally as indicated to optimize metabolic control. We will follow and advise accordingly. Irene Ambrose MD
[2017-01-17] MEDS: Multivitamin Vitamin B Complex (Nephro-Vite) Tab PO SCH (09:18)
[2017-01-17] MEDS: Pantoprazole 40 mg EC Tab PO SCH (09:18)
[2017-01-17] MEDS: Gentamicin 100mg/100ml NS 100 MG/100 ML BAG IVPB SCH (09:19)
--- NOTE | 2017-01-17 11:08 | CP.PCM.PN ---
Subjective - Date & Time of Evaluation Date of Evaluation: 01/17/17 Time of Evaluation: 11:03 - Subjective Subjective: Hemodialysis was started this morning, but the machine broke down. Loans Officer is reportedly on his way to fix this. So, physical and occupational therapy has been delayed. The plan was for increased upper body strengthing, application of L BK prosthesis, and transfer using a sliding board. Hopefully, there will be time for this. Blood was drawn earlier by dialysis nurse for CBC, CMP, gentamicin trough level. EEG was normal for drowsy state, with no seizure activity noted. Pulse and BP controlled on metoprolol. No pain, dyspnea, cough, or fevers. Afebrile. Objective - Vital Signs/Intake and Output Vital Signs (last 24 hours): Temp Pulse Resp BP Pulse Ox 97.9 F 100 H 20 151/79 H 96 01/17/17 08:54 01/17/17 08:54 01/17/17 08:54 01/17/17 08:54 01/17/17 08:54 - Medications Medications: Current Medications Acetaminophen (Tylenol 325mg Tab) 650 mg PO Q4 PRN PRN Reason: Fever >100.4 F Last Admin: 12/26/16 19:40 Dose: 650 mg Acetaminophen (Tylenol 325mg Tab) 650 mg PO Q4 PRN PRN Reason: Pain, moderate (4-7) Last Admin: 12/26/16 05:14 Dose: 650 mg Apixaban (Eliquis) 5 mg PO BID [facility] PRN Reason: Protocol Last Admin: 01/17/17 09:20 Dose: 5 mg Aspirin (Ecotrin) 81 mg PO DAILY [facility] Last Admin: 01/17/17 09:19 Dose: 81 mg Atorvastatin Calcium (Lipitor) 40 mg PO DAILY [facility] Last Admin: 01/17/17 09:18 Dose: 40 mg Calcium Carbonate (Oscal) 500 mg PO BIDWM [facility] Last Admin: 01/17/17 09:18 Dose: 500 mg Collagenase (Santyl) 1 applic TOP DAILY [facility] Last Admin: 01/16/17 09:01 Dose: 1 applic Diphenhydramine HCl (Benadryl) 25 mg PO Q6 PRN PRN Reason: Itching / Pruritus Last Admin: 12/17/16 09:53 Dose: 25 mg Docusate Sodium (Colace) 100 mg PO BID [facility] Last Admin: 01/17/17 09:19 Dose: 100 mg Epoetin Tha (Procrit) 8,000 unit IV [facility] Ergocalciferol (Drisdol 50,000 Intl Units Cap) 1 cap PO WED [facility] Last Admin: 01/15/17 09:08 Dose: 1 cap Fluconazole (Diflucan) 100 mg PO DAILY [facility] Last Admin: 01/17/17 09:21 Dose: 100 mg Gabapentin (Neurontin) 300 mg PO TID [facility] Last Admin: 01/17/17 09:20 Dose: 300 mg Guaifenesin/Dextromethorphan (Robitussin Dm) 10 ml PO Q4 PRN PRN Reason: Cough Last Admin: 01/13/17 10:51 Dose: 10 ml Hydrocortisone (Anusol-Hc) 1 applic [place] BID PRN PRN Reason: Inflammation Last Admin: 01/17/17 09:22 Dose: 1 applic Hydromorphone HCl (Dilaudid) 1 mg IVP Q4H PRN PRN Reason: Pain, severe (8-10) Last Admin: 01/17/17 07:53 Dose: 1 mg Sodium Chloride (Sodium Chloride 0.45%) 500 mls @ 10 mls/hr IV .Q24H [facility] Last Admin: 01/16/17 16:36 Dose: 10 mls/hr Ceftazidime/Avibactam 0.94 gm/ (Sodium Chloride) 100 mls @ 50 mls/hr IV QOTHERDAY@2200 [facility] Last Admin: 01/16/17 22:13 Dose: 50 mls/hr Gentamicin Sulfate/Sodium Chloride (Gentamicin 100mg/100ml Ns) 100 mg in 100 mls @ 100 mls/hr IVPB [facility] Last Admin: 01/17/17 09:19 Dose: 100 mls/hr Daptomycin 650 mg/ Sodium (Chloride) 100 mls @ 100 mls/hr IVPB [facility] Stop: 02/10/17 09:59 Levalbuterol HCl (Xopenex) 0.63 mg INH RQ8 PRN PRN Reason: Shortness of Breath Metoprolol Tartrate (Lopressor) 25 mg PO Q12 [facility] Last Admin: 01/17/17 09:14 Dose: Not Given Nystatin (Nystop Topical Powder) 1 applic TOP BID [facility] Last Admin: 01/17/17 09:20 Dose: 1 applic Ondansetron HCl (Zofran Inj) 4 mg IVP Q6 PRN PRN Reason: Nausea/Vomiting Last Admin: 09/19/16 10:26 Dose: 4 mg Pantoprazole Sodium (Protonix Ec Tab) 40 mg PO DAILY [facility] Last Admin: 01/17/17 09:18 Dose: 40 mg Repaglinide (Prandin) 1 mg PO TIDAC [facility] Last Admin: 01/17/17 09:18 Dose: 1 mg Sennosides (Senokot Tab) 25.8 mg PO HS [facility] Last Admin: 01/16/17 21:09 Dose: 25.8 mg Sevelamer HCl (Renagel) 1,600 mg PO TIDWM [facility] Last Admin: 01/17/17 09:17 Dose: 1,600 mg Simethicone (Mylicon Chew Tab) 80 mg PO Q4H PRN PRN Reason: flatulence or "gassy feeling:" Last Admin: 01/07/17 16:57 Dose: 80 mg Topiramate (Topamax) 50 mg PO BID [facility] Last Admin: 01/16/17 16:34 Dose: 50 mg Vitamin B Complex/Vit C/Folic Acid (Nephro-Ajay) 1 tab PO DAILY [facility] Last Admin: 01/17/17 09:18 Dose: 1 tab - Labs Labs: 01/13/17 12:10 01/13/17 12:10 PT 15.3 Seconds (9.8-13.1) H 12/02/16 13:05 INR 1.4 (0.9-1.2) H 12/02/16 13:05 APTT 37.0 Seconds (25.6-37.1) 12/02/16 13:05 - Constitutional Appears: No Acute Distress - Head Exam Head Exam: NORMAL INSPECTION - Eye Exam Eye Exam: Normal appearance - ENT Exam ENT Exam: Mucous Membranes Moist - Neck Exam Neck Exam: Normal Inspection Additional comments: R subclavian Permacath intact. - Respiratory Exam Respiratory Exam: NORMAL BREATHING PATTERN - Cardiovascular Exam Cardiovascular Exam: REGULAR RHYTHM, +S1, +S2 - GI/Abdominal Exam GI & Abdominal Exam: Soft - Extremities Exam Additional comments: Dressings and wound vac in place right lower extremity. - Back Exam Back Exam: NORMAL INSPECTION - Neurological Exam Neurological Exam: Alert, CN II-XII Intact, Oriented x3 - Psychiatric Exam Psychiatric exam: Normal Affect, Normal Mood - Skin Skin Exam: Dry, Normal Color, Warm Additional comments: Abrasian right lateral chest wall has healed. Assessment and Plan (1) Near syncope Assessment & Plan: This appears to have resolved, but we shall see how the patient does during physical therapy today. Status: Acute (2) Status post below knee amputation of right lower extremity Assessment & Plan: Making progress. Continue current care and 3 iv antibiotics and 1 po antibiotic. Status: Acute (3) ESRD (end stage renal disease) on dialysis Status: Chronic (4) DM type 2 (diabetes mellitus, type 2) Status: Chronic (5) Coagulopathy Status: Chronic (6) Peripheral arterial occlusive disease Status: Chronic
[2017-01-17 11:30] LABS: BASO # 0.1 K/uL (0.0-0.2); BASO % 0.7 % (0.0-2.0); EOS # 0.9 K/uL (0.0-0.7); HEMATOCRIT 39.5 % (34.0-47.0); LYMPH # 1.6 K/uL (1.0-4.3); LYMPH % 14.6 % (20.0-40.0); MEAN CELL VOLUME 97.2 fl (81.0-99.0); MEAN CORPUSCULAR HEMOGLOBIN 29.8 pg (27.0-31.0); MEAN CORPUSCULAR HGB CONC 30.6 g/dL (33.0-37.0); MEAN PLATELET VOLUME 10.8 fl (7.2-11.7); MONO # 1.1 K/uL (0.0-0.8); MONO % 10.8 % (0.0-10.0); NEUT % 65.9 % (50.0-75.0); RED CELL DISTRIBUTION WIDTH 20.6 % (11.5-14.5); WHITE BLOOD COUNT 10.6 K/uL (4.8-10.8)
[2017-01-17 11:40] LABS: ALB/GLOB RATIO 0.9 (1.0-2.1); BILIRUBIN,TOTAL 0.6 mg/dl (0.2-1.3); POTASSIUM 4.6 MMOL/L (3.6-5.0); TOTAL PROTEIN 8.2 G/DL (6.3-8.2)
[2017-01-17] MEDS: Santyl Collagenase OINTMENT TOP SCH (12:02)
--- NOTE | 2017-01-17 13:44 | CP.PCM.PN ---
Subjective - Date & Time of Evaluation Date of Evaluation: 01/17/17 Time of Evaluation: 13:42 - Subjective Subjective: Patient in bed she is eating her lunch And receiving hemodialysis She and tolerating very well appeared to be comfortable with ultrafiltration over 3000 mL Physical exam No changes Chest no rales Heart no rubs Abdomen soft Extremity no edema Impression and plan Continue hemodialysis as ordered We decrease his Epogen to 8000 because of the hematocrit level The rest of the medical problem as noted Objective - Vital Signs/Intake and Output Vital Signs (last 24 hours): Temp Pulse Resp BP Pulse Ox 97.9 F 100 H 20 151/79 H 96 01/17/17 08:54 01/17/17 08:54 01/17/17 08:54 01/17/17 08:54 01/17/17 08:54 - Medications Medications: Current Medications Acetaminophen (Tylenol 325mg Tab) 650 mg PO Q4 PRN PRN Reason: Fever >100.4 F Last Admin: 12/26/16 19:40 Dose: 650 mg Acetaminophen (Tylenol 325mg Tab) 650 mg PO Q4 PRN PRN Reason: Pain, moderate (4-7) Last Admin: 12/26/16 05:14 Dose: 650 mg Apixaban (Eliquis) 5 mg PO BID [facility] PRN Reason: Protocol Last Admin: 01/17/17 09:20 Dose: 5 mg Aspirin (Ecotrin) 81 mg PO DAILY [facility] Last Admin: 01/17/17 09:19 Dose: 81 mg Atorvastatin Calcium (Lipitor) 40 mg PO DAILY [facility] Last Admin: 01/17/17 09:18 Dose: 40 mg Calcium Carbonate (Oscal) 500 mg PO BIDWM [facility] Last Admin: 01/17/17 09:18 Dose: 500 mg Collagenase (Santyl) 1 applic TOP DAILY [facility] Last Admin: 01/17/17 12:02 Dose: 1 applic Diphenhydramine HCl (Benadryl) 25 mg PO Q6 PRN PRN Reason: Itching / Pruritus Last Admin: 12/17/16 09:53 Dose: 25 mg Docusate Sodium (Colace) 100 mg PO BID [facility] Last Admin: 01/17/17 09:19 Dose: 100 mg Epoetin Tha (Procrit) 8,000 unit IV MWF [facility] Ergocalciferol (Drisdol 50,000 Intl Units Cap) 1 cap PO WED [facility] Last Admin: 01/15/17 09:08 Dose: 1 cap Fluconazole (Diflucan) 100 mg PO DAILY [facility] Last Admin: 01/17/17 09:21 Dose: 100 mg Gabapentin (Neurontin) 300 mg PO TID [facility] Last Admin: 01/17/17 12:03 Dose: 300 mg Guaifenesin/Dextromethorphan (Robitussin Dm) 10 ml PO Q4 PRN PRN Reason: Cough Last Admin: 01/13/17 10:51 Dose: 10 ml Hydrocortisone (Anusol-Hc) 1 applic [place] BID PRN PRN Reason: Inflammation Hydromorphone HCl (Dilaudid) 1 mg IVP Q4H PRN PRN Reason: Pain, severe (8-10) Last Admin: 01/17/17 12:00 Dose: 1 mg Sodium Chloride (Sodium Chloride 0.45%) 500 mls @ 10 mls/hr IV .Q24H [facility] Last Admin: 01/16/17 16:36 Dose: 10 mls/hr Ceftazidime/Avibactam 0.94 gm/ (Sodium Chloride) 100 mls @ 50 mls/hr IV QOTHERDAY@2200 [facility] Last Admin: 01/16/17 22:13 Dose: 50 mls/hr Gentamicin Sulfate/Sodium Chloride (Gentamicin 100mg/100ml Ns) 100 mg in 100 mls @ 100 mls/hr IVPB [facility] Last Admin: 01/17/17 09:19 Dose: 100 mls/hr Daptomycin 650 mg/ Sodium (Chloride) 100 mls @ 100 mls/hr IVPB [facility] Stop: 02/10/17 09:59 Last Admin: 01/17/17 13:02 Dose: 100 mls/hr Levalbuterol HCl (Xopenex) 0.63 mg INH RQ8 PRN PRN Reason: Shortness of Breath Metoprolol Tartrate (Lopressor) 25 mg PO Q12 [facility] Last Admin: 01/17/17 09:14 Dose: Not Given Nystatin (Nystop Topical Powder) 1 applic TOP BID [facility] Last Admin: 01/17/17 09:20 Dose: 1 applic Ondansetron HCl (Zofran Inj) 4 mg IVP Q6 PRN PRN Reason: Nausea/Vomiting Last Admin: 09/19/16 10:26 Dose: 4 mg Pantoprazole Sodium (Protonix Ec Tab) 40 mg PO DAILY [facility] Last Admin: 01/17/17 09:18 Dose: 40 mg Repaglinide (Prandin) 1 mg PO TIDAC [facility] Last Admin: 01/17/17 12:03 Dose: 1 mg Sennosides (Senokot Tab) 25.8 mg PO HS [facility] Last Admin: 01/16/17 21:09 Dose: 25.8 mg Sevelamer HCl (Renagel) 1,600 mg PO TIDWM [facility] Last Admin: 01/17/17 12:03 Dose: 1,600 mg Simethicone (Mylicon Chew Tab) 80 mg PO Q4H PRN PRN Reason: flatulence or "gassy feeling:" Last Admin: 01/07/17 16:57 Dose: 80 mg Topiramate (Topamax) 50 mg PO BID [facility] Last Admin: 01/17/17 09:00 Dose: 50 mg Vitamin B Complex/Vit C/Folic Acid (Nephro-Ajay) 1 tab PO DAILY [facility] Last Admin: 01/17/17 09:18 Dose: 1 tab - Labs Labs: 01/17/17 11:00 01/17/17 11:00 PT 15.3 Seconds (9.8-13.1) H 12/02/16 13:05 INR 1.4 (0.9-1.2) H 12/02/16 13:05 APTT 37.0 Seconds (25.6-37.1) 12/02/16 13:05 Assessment and Plan (1) ESRD (end stage renal disease) Status: Chronic (2) Cellulitis of leg Status: Chronic
[2017-01-17] MEDS: Epoetin Alfa 20000 UNIT/ML Inj IV SCH (15:06)
--- NOTE | 2017-01-17 17:24 | CP.PCM.PN ---
Subjective - Date & Time of Evaluation Date of Evaluation: 01/17/17 Time of Evaluation: 17:20 - Subjective Subjective: I D NOTE HAVE REVIEWED LABS ESPECIALLY GENTAMICIN TROUGH LEVELS,AND DECREASED DOSE TO 60MG M W F (post hd) RANDOM LEVEL ORDERED FOR TOMORROW Objective - Vital Signs/Intake and Output Vital Signs (last 24 hours): Temp Pulse Resp BP Pulse Ox 97.2 F L 102 H 20 115/51 L 98 01/17/17 16:59 01/17/17 16:59 01/17/17 16:59 01/17/17 16:59 01/17/17 16:59 - Medications Medications: Current Medications Acetaminophen (Tylenol 325mg Tab) 650 mg PO Q4 PRN PRN Reason: Fever >100.4 F Last Admin: 12/26/16 19:40 Dose: 650 mg Acetaminophen (Tylenol 325mg Tab) 650 mg PO Q4 PRN PRN Reason: Pain, moderate (4-7) Last Admin: 12/26/16 05:14 Dose: 650 mg Apixaban (Eliquis) 5 mg PO BID [facility] PRN Reason: Protocol Last Admin: 01/17/17 16:49 Dose: 5 mg Aspirin (Ecotrin) 81 mg PO DAILY [facility] Last Admin: 01/17/17 09:19 Dose: 81 mg Atorvastatin Calcium (Lipitor) 40 mg PO DAILY [facility] Last Admin: 01/17/17 09:18 Dose: 40 mg Calcium Carbonate (Oscal) 500 mg PO BIDWM [facility] Last Admin: 01/17/17 16:50 Dose: 500 mg Collagenase (Santyl) 1 applic TOP DAILY [facility] Last Admin: 01/17/17 12:02 Dose: 1 applic Diphenhydramine HCl (Benadryl) 25 mg PO Q6 PRN PRN Reason: Itching / Pruritus Last Admin: 12/17/16 09:53 Dose: 25 mg Docusate Sodium (Colace) 100 mg PO BID [facility] Last Admin: 01/17/17 16:50 Dose: 100 mg Epoetin Tha (Procrit) 8,000 unit IV MWF [facility] Last Admin: 01/17/17 15:06 Dose: 8,000 unit Ergocalciferol (Drisdol 50,000 Intl Units Cap) 1 cap PO WED [facility] Last Admin: 01/15/17 09:08 Dose: 1 cap Fluconazole (Diflucan) 100 mg PO DAILY [facility] Last Admin: 01/17/17 09:21 Dose: 100 mg Gabapentin (Neurontin) 300 mg PO TID [facility] Last Admin: 01/17/17 16:48 Dose: 300 mg Guaifenesin/Dextromethorphan (Robitussin Dm) 10 ml PO Q4 PRN PRN Reason: Cough Last Admin: 01/13/17 10:51 Dose: 10 ml Hydrocortisone (Anusol-Hc) 1 applic [place] BID PRN PRN Reason: Inflammation Hydromorphone HCl (Dilaudid) 1 mg IVP Q4H PRN PRN Reason: Pain, severe (8-10) Last Admin: 01/17/17 16:47 Dose: 1 mg Sodium Chloride (Sodium Chloride 0.45%) 500 mls @ 10 mls/hr IV .Q24H [facility] Last Admin: 01/17/17 16:51 Dose: 10 mls/hr Ceftazidime/Avibactam 0.94 gm/ (Sodium Chloride) 100 mls @ 50 mls/hr IV QOTHERDAY@2200 [facility] Last Admin: 01/16/17 22:13 Dose: 50 mls/hr Daptomycin 650 mg/ Sodium (Chloride) 100 mls @ 100 mls/hr IVPB [facility] [place] Stop: 02/10/17 09:59 Last Admin: 01/17/17 13:02 Dose: 100 mls/hr Gentamicin Sulfate/Sodium Chloride (Gentamicin 60mg/50ml Ns) 60 mg in 50 mls @ 50 mls/hr IVPB [facility] [place] Levalbuterol HCl (Xopenex) 0.63 mg INH RQ8 PRN PRN Reason: Shortness of Breath Metoprolol Tartrate (Lopressor) 25 mg PO Q12 [facility] Last Admin: 01/17/17 09:14 Dose: Not Given Nystatin (Nystop Topical Powder) 1 applic TOP BID [facility] Last Admin: 01/17/17 16:50 Dose: 1 applic Ondansetron HCl (Zofran Inj) 4 mg IVP Q6 PRN PRN Reason: Nausea/Vomiting Last Admin: 09/19/16 10:26 Dose: 4 mg Pantoprazole Sodium (Protonix Ec Tab) 40 mg PO DAILY [facility] Last Admin: 01/17/17 09:18 Dose: 40 mg Repaglinide (Prandin) 1 mg PO TIDAC [facility] Last Admin: 01/17/17 16:52 Dose: 1 mg Sennosides (Senokot Tab) 25.8 mg PO HS [facility] Last Admin: 01/16/17 21:09 Dose: 25.8 mg Sevelamer HCl (Renagel) 1,600 mg PO TIDWM [facility] Last Admin: 01/17/17 16:52 Dose: 1,600 mg Simethicone (Mylicon Chew Tab) 80 mg PO Q4H PRN PRN Reason: flatulence or "gassy feeling:" Last Admin: 01/07/17 16:57 Dose: 80 mg Topiramate (Topamax) 50 mg PO BID [facility] Last Admin: 01/17/17 16:49 Dose: 50 mg Vitamin B Complex/Vit C/Folic Acid (Nephro-Ajay) 1 tab PO DAILY [facility] Last Admin: 01/17/17 09:18 Dose: 1 tab - Labs Labs: 01/17/17 11:00 01/17/17 11:00 PT 15.3 Seconds (9.8-13.1) H 12/02/16 13:05 INR 1.4 (0.9-1.2) H 12/02/16 13:05 APTT 37.0 Seconds (25.6-37.1) 12/02/16 13:05
[2017-01-17] MEDS ORDERED: Insulin Detemir 100 Units/ml Inj SC SCH (22:00)
--- NOTE | 2017-01-17 23:39 | PN ---
DATE: LOCATION: Room 661. SUBJECTIVE: This is a 46-year-old female with recent uncontrolled type 2 insulin-requiring diabetes, now being followed closely for metabolic management. Today, her glucose values have been extremely fluctuating with hyperglycemic accelerations as noted. The glucose values today have ranged from 283 to 286 mg/dL. LABORATORY DATA: The latest chemistry shows a BUN of 54, sodium 139, potassium 4.6, chloride 101, CO2 20, glucose 306, and creatinine 7.7. ASSESSMENT AND PLAN: With the recent hyperglycemic accelerations and metabolic decompensation, we will resume once again her basal and bolus insulin regimen and we will titrate incremental as indicated to optimize metabolic control. We will add Humalog given as 6 units subcutaneous t.i.d. before meals to start today as ordered. We will also add Levemir given as 12 units subcutaneous bedtime daily to start tonight. We will resume fingerstick to be done twice a day as noted. We will follow advice accordingly. Irene Ambrose MD
--- NOTE | 2017-01-18 00:30 | CP.PCM.PN ---
Subjective - Date & Time of Evaluation Date of Evaluation: 01/17/17 Time of Evaluation: 20:00 - Subjective Subjective: Abnormally high Gentamycin level 4.1 followed by a level of 3.3. She is running a high Glucose level in the high 290 up tp to 310. She received Hemodialysis and the machine of Dialysis broke and was repaired and dialysis was completed. Thre is no seizures. Tachycardia above 100 to 105, normal temperature, normal Blood Pressure. Objective - Vital Signs/Intake and Output Vital Signs (last 24 hours): Temp Pulse Resp BP Pulse Ox 97.2 F L 105 H 20 106/83 98 01/17/17 16:59 01/17/17 21:53 01/17/17 16:59 01/17/17 21:53 01/17/17 16:59 - Medications Medications: Current Medications Acetaminophen (Tylenol 325mg Tab) 650 mg PO Q4 PRN PRN Reason: Fever >100.4 F Last Admin: 12/26/16 19:40 Dose: 650 mg Acetaminophen (Tylenol 325mg Tab) 650 mg PO Q4 PRN PRN Reason: Pain, moderate (4-7) Last Admin: 12/26/16 05:14 Dose: 650 mg Apixaban (Eliquis) 5 mg PO BID [facility] PRN Reason: Protocol Last Admin: 01/17/17 16:49 Dose: 5 mg Aspirin (Ecotrin) 81 mg PO DAILY [facility] Last Admin: 01/17/17 09:19 Dose: 81 mg Atorvastatin Calcium (Lipitor) 40 mg PO DAILY [facility] Last Admin: 01/17/17 09:18 Dose: 40 mg Calcium Carbonate (Oscal) 500 mg PO BIDWM [facility] Last Admin: 01/17/17 16:50 Dose: 500 mg Collagenase (Santyl) 1 applic TOP DAILY [facility] Last Admin: 01/17/17 12:02 Dose: 1 applic Diphenhydramine HCl (Benadryl) 25 mg PO Q6 PRN PRN Reason: Itching / Pruritus Last Admin: 12/17/16 09:53 Dose: 25 mg Docusate Sodium (Colace) 100 mg PO BID [facility] Last Admin: 01/17/17 16:50 Dose: 100 mg Epoetin Tha (Procrit) 8,000 unit IV MWF [facility] Last Admin: 01/17/17 15:06 Dose: 8,000 unit Ergocalciferol (Drisdol 50,000 Intl Units Cap) 1 cap PO WED [facility] Last Admin: 01/15/17 09:08 Dose: 1 cap Fluconazole (Diflucan) 100 mg PO DAILY [facility] Last Admin: 01/17/17 09:21 Dose: 100 mg Gabapentin (Neurontin) 300 mg PO TID [facility] Last Admin: 01/17/17 16:48 Dose: 300 mg Guaifenesin/Dextromethorphan (Robitussin Dm) 10 ml PO Q4 PRN PRN Reason: Cough Last Admin: 01/13/17 10:51 Dose: 10 ml Hydrocortisone (Anusol-Hc) 1 applic [place] BID PRN PRN Reason: Inflammation Hydromorphone HCl (Dilaudid) 1 mg IVP Q4H PRN PRN Reason: Pain, severe (8-10) Last Admin: 01/17/17 21:48 Dose: 1 mg Sodium Chloride (Sodium Chloride 0.45%) 500 mls @ 10 mls/hr IV .Q24H [facility] Last Admin: 01/17/17 16:51 Dose: 10 mls/hr Ceftazidime/Avibactam 0.94 gm/ (Sodium Chloride) 100 mls @ 50 mls/hr IV QOTHERDAY@2200 [facility] Last Admin: 01/16/17 22:13 Dose: 50 mls/hr Daptomycin 650 mg/ Sodium (Chloride) 100 mls @ 100 mls/hr IVPB [facility] [place] Stop: 02/10/17 09:59 Last Admin: 01/17/17 13:02 Dose: 100 mls/hr Gentamicin Sulfate/Sodium Chloride (Gentamicin 60mg/50ml Ns) 60 mg in 50 mls @ 50 mls/hr IVPB [facility] [place] Insulin Detemir (Levemir) 12 units SC HS [facility] Last Admin: 01/17/17 22:03 Dose: 12 u Insulin Human Lispro (Humalog) 6 units SC ACTID [facility] Levalbuterol HCl (Xopenex) 0.63 mg INH RQ8 PRN PRN Reason: Shortness of Breath Metoprolol Tartrate (Lopressor) 25 mg PO Q12 [facility] Last Admin: 01/17/17 21:53 Dose: 25 mg Nystatin (Nystop Topical Powder) 1 applic TOP BID [facility] Last Admin: 01/17/17 16:50 Dose: 1 applic Ondansetron HCl (Zofran Inj) 4 mg IVP Q6 PRN PRN Reason: Nausea/Vomiting Last Admin: 09/19/16 10:26 Dose: 4 mg Pantoprazole Sodium (Protonix Ec Tab) 40 mg PO DAILY [facility] Last Admin: 01/17/17 09:18 Dose: 40 mg Repaglinide (Prandin) 1 mg PO TIDAC [facility] Last Admin: 01/17/17 16:52 Dose: 1 mg Sennosides (Senokot Tab) 25.8 mg PO HS [facility] Last Admin: 01/17/17 22:00 Dose: 25.8 mg Sevelamer HCl (Renagel) 1,600 mg PO TIDWM [facility] Last Admin: 01/17/17 16:52 Dose: 1,600 mg Simethicone (Mylicon Chew Tab) 80 mg PO Q4H PRN PRN Reason: flatulence or "gassy feeling:" Last Admin: 01/07/17 16:57 Dose: 80 mg Topiramate (Topamax) 50 mg PO BID [facility] Last Admin: 01/17/17 16:49 Dose: 50 mg Vitamin B Complex/Vit C/Folic Acid (Nephro-Ajay) 1 tab PO DAILY [facility] Last Admin: 01/17/17 09:18 Dose: 1 tab - Labs Labs: 01/17/17 11:00 01/17/17 11:00 PT 15.3 Seconds (9.8-13.1) H 12/02/16 13:05 INR 1.4 (0.9-1.2) H 12/02/16 13:05 APTT 37.0 Seconds (25.6-37.1) 12/02/16 13:05 Assessment and Plan (1) Diabetes Status: Chronic (2) ESRD (end stage renal disease) Status: Chronic (3) Cellulitis of leg Status: Chronic (4) Hyperlipidemia Status: Chronic (5) Back pain Status: Acute (6) Bacteremia due to Gram-negative bacteria Status: Acute (7) Diabetes mellitus type 2 with peripheral artery disease Status: Chronic (8) PVD (peripheral vascular disease) Status: Chronic (9) Osteomyelitis of right leg Status: Acute
[2017-01-18] MEDS: Insulin Lispro (humaLOG) 100 Units/ml Inj SC SCH ×3 (08:40→16:43)
[2017-01-18] MEDS: Multivitamin Vitamin B Complex (Nephro-Vite) Tab PO SCH (08:43)
[2017-01-18] MEDS: Pantoprazole 40 mg EC Tab PO SCH (08:47)
[2017-01-18] MEDS: Santyl Collagenase OINTMENT TOP SCH (08:54)
--- NOTE | 2017-01-18 13:59 | CP.PCM.PN ---
Subjective - Date & Time of Evaluation Date of Evaluation: 01/18/17 Time of Evaluation: 13:55 - Subjective Subjective: Due to broken dialysis maching and that dialysis was not completed until 4 pm yesterday, the physical and occupational therapy that had been planned could not be done. Hopefully this will be accomplished on Friday, Jan 20. Glucoses have been running around 300 - not clear why the change as her diet remains the same as before. Dr. Ambrose has restarted both long acting and short acting insulin. She continues on Prandin. Twice daily accucheks have been reinstituted. Dr. Lemon's note appreciated. Gentamicin has been decreased to 60mg q MWF post dialysis due to elevated trough level of 4. Right BK wound vac and right patellar dressings are intact. No fevers, cough, pain, dyspnea, or mental status changes. Objective - Vital Signs/Intake and Output Vital Signs (last 24 hours): Temp Pulse Resp BP Pulse Ox 97.6 F 92 H 18 93/61 L 94 L 01/18/17 08:23 01/18/17 08:42 01/18/17 08:23 01/18/17 08:42 01/18/17 08:23 - Medications Medications: Current Medications Acetaminophen (Tylenol 325mg Tab) 650 mg PO Q4 PRN PRN Reason: Fever >100.4 F Last Admin: 12/26/16 19:40 Dose: 650 mg Acetaminophen (Tylenol 325mg Tab) 650 mg PO Q4 PRN PRN Reason: Pain, moderate (4-7) Last Admin: 12/26/16 05:14 Dose: 650 mg Apixaban (Eliquis) 5 mg PO BID [facility] PRN Reason: Protocol Last Admin: 01/18/17 08:38 Dose: 5 mg Aspirin (Ecotrin) 81 mg PO DAILY [facility] Last Admin: 01/18/17 08:38 Dose: 81 mg Atorvastatin Calcium (Lipitor) 40 mg PO DAILY [facility] Last Admin: 01/18/17 08:42 Dose: 40 mg Calcium Carbonate (Oscal) 500 mg PO BIDWM [facility] Last Admin: 01/18/17 08:46 Dose: 500 mg Collagenase (Santyl) 1 applic TOP DAILY [facility] Last Admin: 01/18/17 08:54 Dose: 1 applic Diphenhydramine HCl (Benadryl) 25 mg PO Q6 PRN PRN Reason: Itching / Pruritus Last Admin: 12/17/16 09:53 Dose: 25 mg Docusate Sodium (Colace) 100 mg PO BID [facility] Last Admin: 01/18/17 08:37 Dose: 100 mg Epoetin Tha (Procrit) 8,000 unit IV [facility] Last Admin: 01/17/17 15:06 Dose: 8,000 unit Ergocalciferol (Drisdol 50,000 Intl Units Cap) 1 cap PO WED [facility] Last Admin: 01/15/17 09:08 Dose: 1 cap Fluconazole (Diflucan) 100 mg PO DAILY [facility] Last Admin: 01/18/17 08:38 Dose: 100 mg Gabapentin (Neurontin) 300 mg PO TID [facility] Last Admin: 01/18/17 13:01 Dose: 300 mg Guaifenesin/Dextromethorphan (Robitussin Dm) 10 ml PO Q4 PRN PRN Reason: Cough Last Admin: 01/13/17 10:51 Dose: 10 ml Hydrocortisone (Anusol-Hc) 1 applic [place] BID PRN PRN Reason: Inflammation Hydromorphone HCl (Dilaudid) 1 mg IVP Q4H PRN PRN Reason: Pain, severe (8-10) Last Admin: 01/18/17 12:59 Dose: 1 mg Sodium Chloride (Sodium Chloride 0.45%) 500 mls @ 10 mls/hr IV .Q24H [facility] Last Admin: 01/17/17 16:51 Dose: 10 mls/hr Ceftazidime/Avibactam 0.94 gm/ (Sodium Chloride) 100 mls @ 50 mls/hr IV QOTHERDAY@2200 [facility] Last Admin: 01/16/17 22:13 Dose: 50 mls/hr Daptomycin 650 mg/ Sodium (Chloride) 100 mls @ 100 mls/hr IVPB [facility] Stop: 02/10/17 09:59 Last Admin: 01/17/17 13:02 Dose: 100 mls/hr Gentamicin Sulfate/Sodium Chloride (Gentamicin 60mg/50ml Ns) 60 mg in 50 mls @ 50 mls/hr IVPB [facility] Insulin Detemir (Levemir) 24 units SC HS [facility] Insulin Human Lispro (Humalog) 12 units SC ACTID [facility] Levalbuterol HCl (Xopenex) 0.63 mg INH RQ8 PRN PRN Reason: Shortness of Breath Metoprolol Tartrate (Lopressor) 25 mg PO Q12 [facility] Last Admin: 01/18/17 08:42 Dose: Not Given Nystatin (Nystop Topical Powder) 1 applic TOP BID [facility] Last Admin: 01/18/17 08:45 Dose: 1 applic Ondansetron HCl (Zofran Inj) 4 mg IVP Q6 PRN PRN Reason: Nausea/Vomiting Last Admin: 09/19/16 10:26 Dose: 4 mg Pantoprazole Sodium (Protonix Ec Tab) 40 mg PO DAILY [facility] Last Admin: 01/18/17 08:47 Dose: 40 mg Repaglinide (Prandin) 1 mg PO TIDAC [facility] Last Admin: 01/18/17 12:00 Dose: 1 mg Sennosides (Senokot Tab) 25.8 mg PO HS [facility] Last Admin: 01/17/17 22:00 Dose: 25.8 mg Sevelamer HCl (Renagel) 1,600 mg PO TIDWM [facility] Last Admin: 01/18/17 13:03 Dose: 1,600 mg Simethicone (Mylicon Chew Tab) 80 mg PO Q4H PRN PRN Reason: flatulence or "gassy feeling:" Last Admin: 01/07/17 16:57 Dose: 80 mg Topiramate (Topamax) 50 mg PO BID [facility] Last Admin: 01/18/17 08:55 Dose: 50 mg Vitamin B Complex/Vit C/Folic Acid (Nephro-Ajay) 1 tab PO DAILY [facility] Last Admin: 01/18/17 08:43 Dose: 1 tab - Labs Labs: 01/17/17 11:00 01/17/17 11:00 PT 15.3 Seconds (9.8-13.1) H 12/02/16 13:05 INR 1.4 (0.9-1.2) H 12/02/16 13:05 APTT 37.0 Seconds (25.6-37.1) 12/02/16 13:05 - Constitutional Appears: Well, No Acute Distress - Head Exam Head Exam: NORMAL INSPECTION - Eye Exam Eye Exam: Normal appearance - ENT Exam ENT Exam: Mucous Membranes Moist - Neck Exam Neck Exam: Normal Inspection Additional comments: R subclavian Permacath intact. - Respiratory Exam Respiratory Exam: Clear to Ausculation Bilateral, NORMAL BREATHING PATTERN - Cardiovascular Exam Cardiovascular Exam: REGULAR RHYTHM, +S1, +S2 - Extremities Exam Additional comments: Dressings and wound vac in place RLE. Left femoral vein PICC line intact. - Back Exam Back Exam: NORMAL INSPECTION - Neurological Exam Neurological Exam: Alert, CN II-XII Intact, Oriented x3 - Skin Skin Exam: Dry, Normal Color, Warm Assessment and Plan (1) Near syncope Assessment & Plan: Appears to have resolved. Will see what happens with next vigorous physical therapy. Status: Acute (2) Status post below knee amputation of right lower extremity Assessment & Plan: Slowly improving. Continue presen tx and antibiotic Rx. Status: Acute (3) ESRD (end stage renal disease) on dialysis Status: Chronic (4) DM type 2 (diabetes mellitus, type 2) Assessment & Plan: stable Status: Chronic (5) Coagulopathy Status: Chronic (6) Peripheral arterial occlusive disease Status: Chronic (7) Diabetes mellitus type 2 with peripheral artery disease Assessment & Plan: Dr. Ambrose has resumed long and short acting insulins along with oral Prandin. Twice daily accucheks were ordered. Status: Chronic
--- NOTE | 2017-01-18 15:03 | CP.PCM.PN ---
Subjective - Date & Time of Evaluation Date of Evaluation: 01/18/17 Time of Evaluation: 02:25 - Subjective Subjective: Feels better Objective - Vital Signs/Intake and Output Vital Signs (last 24 hours): Temp Pulse Resp BP Pulse Ox 97.6 F 92 H 18 93/61 L 94 L 01/18/17 08:23 01/18/17 08:42 01/18/17 08:23 01/18/17 08:42 01/18/17 08:23 - Medications Medications: Current Medications Acetaminophen (Tylenol 325mg Tab) 650 mg PO Q4 PRN PRN Reason: Fever >100.4 F Last Admin: 12/26/16 19:40 Dose: 650 mg Acetaminophen (Tylenol 325mg Tab) 650 mg PO Q4 PRN PRN Reason: Pain, moderate (4-7) Last Admin: 12/26/16 05:14 Dose: 650 mg Apixaban (Eliquis) 5 mg PO BID [facility] PRN Reason: Protocol Last Admin: 01/18/17 08:38 Dose: 5 mg Aspirin (Ecotrin) 81 mg PO DAILY [facility] Last Admin: 01/18/17 08:38 Dose: 81 mg Atorvastatin Calcium (Lipitor) 40 mg PO DAILY [facility] Last Admin: 01/18/17 08:42 Dose: 40 mg Calcium Carbonate (Oscal) 500 mg PO BIDWM [facility] Last Admin: 01/18/17 08:46 Dose: 500 mg Collagenase (Santyl) 1 applic TOP DAILY [facility] Last Admin: 01/18/17 08:54 Dose: 1 applic Diphenhydramine HCl (Benadryl) 25 mg PO Q6 PRN PRN Reason: Itching / Pruritus Last Admin: 12/17/16 09:53 Dose: 25 mg Docusate Sodium (Colace) 100 mg PO BID [facility] Last Admin: 01/18/17 08:37 Dose: 100 mg Epoetin Tha (Procrit) 8,000 unit IV MWF [facility] Last Admin: 01/17/17 15:06 Dose: 8,000 unit Ergocalciferol (Drisdol 50,000 Intl Units Cap) 1 cap PO WED [facility] Last Admin: 01/15/17 09:08 Dose: 1 cap Fluconazole (Diflucan) 100 mg PO DAILY [facility] Last Admin: 01/18/17 08:38 Dose: 100 mg Gabapentin (Neurontin) 300 mg PO TID [facility] Last Admin: 01/18/17 13:01 Dose: 300 mg Guaifenesin/Dextromethorphan (Robitussin Dm) 10 ml PO Q4 PRN PRN Reason: Cough Last Admin: 01/13/17 10:51 Dose: 10 ml Hydrocortisone (Anusol-Hc) 1 applic [place] BID PRN PRN Reason: Inflammation Hydromorphone HCl (Dilaudid) 1 mg IVP Q4H PRN PRN Reason: Pain, severe (8-10) Last Admin: 01/18/17 12:59 Dose: 1 mg Sodium Chloride (Sodium Chloride 0.45%) 500 mls @ 10 mls/hr IV .Q24H [facility] Last Admin: 01/17/17 16:51 Dose: 10 mls/hr Ceftazidime/Avibactam 0.94 gm/ (Sodium Chloride) 100 mls @ 50 mls/hr IV QOTHERDAY@2200 [facility] Last Admin: 01/16/17 22:13 Dose: 50 mls/hr Daptomycin 650 mg/ Sodium (Chloride) 100 mls @ 100 mls/hr IVPB [facility] [place] Stop: 02/10/17 09:59 Last Admin: 01/17/17 13:02 Dose: 100 mls/hr Gentamicin Sulfate/Sodium Chloride (Gentamicin 60mg/50ml Ns) 60 mg in 50 mls @ 50 mls/hr IVPB [facility] [place] Insulin Detemir (Levemir) 24 units SC HS [facility] Insulin Human Lispro (Humalog) 12 units SC ACTID [facility] Levalbuterol HCl (Xopenex) 0.63 mg INH RQ8 PRN PRN Reason: Shortness of Breath Metoprolol Tartrate (Lopressor) 25 mg PO Q12 [facility] Last Admin: 01/18/17 08:42 Dose: Not Given Nystatin (Nystop Topical Powder) 1 applic TOP BID [facility] Last Admin: 01/18/17 08:45 Dose: 1 applic Ondansetron HCl (Zofran Inj) 4 mg IVP Q6 PRN PRN Reason: Nausea/Vomiting Last Admin: 09/19/16 10:26 Dose: 4 mg Pantoprazole Sodium (Protonix Ec Tab) 40 mg PO DAILY [facility] Last Admin: 01/18/17 08:47 Dose: 40 mg Repaglinide (Prandin) 1 mg PO TIDAC [facility] Last Admin: 01/18/17 12:00 Dose: 1 mg Sennosides (Senokot Tab) 25.8 mg PO HS [facility] Last Admin: 01/17/17 22:00 Dose: 25.8 mg Sevelamer HCl (Renagel) 1,600 mg PO TIDWM [facility] Last Admin: 01/18/17 13:03 Dose: 1,600 mg Simethicone (Mylicon Chew Tab) 80 mg PO Q4H PRN PRN Reason: flatulence or "gassy feeling:" Last Admin: 01/07/17 16:57 Dose: 80 mg Topiramate (Topamax) 50 mg PO BID [facility] Last Admin: 01/18/17 08:55 Dose: 50 mg Vitamin B Complex/Vit C/Folic Acid (Nephro-Ajay) 1 tab PO DAILY [facility] Last Admin: 01/18/17 08:43 Dose: 1 tab - Labs Labs: 01/17/17 11:00 01/17/17 11:00 PT 15.3 Seconds (9.8-13.1) H 12/02/16 13:05 INR 1.4 (0.9-1.2) H 12/02/16 13:05 APTT 37.0 Seconds (25.6-37.1) 12/02/16 13:05 - Respiratory Exam Additional comments: Lungs clear - Cardiovascular Exam Cardiovascular Exam: REGULAR RHYTHM - Extremities Exam Additional comments: B/L BKA Assessment and Plan - Assessment and Plan (Free Text) Assessment: ESRD on HD IDDM Rt leg infection Plan: Dialysis tolerated well yesterday Continue HD per schedule labs stable
[2017-01-18] MEDS ORDERED: Insulin Detemir 100 Units/ml Inj SC SCH (22:00)
--- NOTE | 2017-01-18 23:37 | CP.PCM.PN ---
Subjective - Date & Time of Evaluation Date of Evaluation: 01/18/17 Time of Evaluation: 20:00 - Subjective Subjective: Blood Glucose is around 300. She has no Seizures. She will be receiving PT on Friday due to her delayed Hemodialysis affected by a broken machine on Friday, which was eventually fixed, but took the time of her PT. There is no fever and is having a relatively accepted Normal VS. She is awake, alert,oriented. Objective - Vital Signs/Intake and Output Vital Signs (last 24 hours): Temp Pulse Resp BP Pulse Ox 99.1 F 95 H 18 123/68 93 L 01/18/17 16:35 01/18/17 22:12 01/18/17 16:35 01/18/17 22:12 01/18/17 16:35 - Medications Medications: Current Medications Acetaminophen (Tylenol 325mg Tab) 650 mg PO Q4 PRN PRN Reason: Fever >100.4 F Last Admin: 12/26/16 19:40 Dose: 650 mg Acetaminophen (Tylenol 325mg Tab) 650 mg PO Q4 PRN PRN Reason: Pain, moderate (4-7) Last Admin: 12/26/16 05:14 Dose: 650 mg Apixaban (Eliquis) 5 mg PO BID [facility] PRN Reason: Protocol Last Admin: 01/18/17 16:42 Dose: 5 mg Aspirin (Ecotrin) 81 mg PO DAILY [facility] Last Admin: 01/18/17 08:38 Dose: 81 mg Atorvastatin Calcium (Lipitor) 40 mg PO DAILY [facility] Last Admin: 01/18/17 08:42 Dose: 40 mg Calcium Carbonate (Oscal) 500 mg PO BIDWM [facility] Last Admin: 01/18/17 08:46 Dose: 500 mg Collagenase (Santyl) 1 applic TOP DAILY [facility] Last Admin: 01/18/17 08:54 Dose: 1 applic Diphenhydramine HCl (Benadryl) 25 mg PO Q6 PRN PRN Reason: Itching / Pruritus Last Admin: 12/17/16 09:53 Dose: 25 mg Docusate Sodium (Colace) 100 mg PO BID [facility] Last Admin: 01/18/17 16:41 Dose: 100 mg Epoetin Tha (Procrit) 8,000 unit IV MWF [facility] Last Admin: 01/17/17 15:06 Dose: 8,000 unit Ergocalciferol (Drisdol 50,000 Intl Units Cap) 1 cap PO WED [facility] Last Admin: 01/15/17 09:08 Dose: 1 cap Fluconazole (Diflucan) 100 mg PO DAILY [facility] Last Admin: 01/18/17 08:38 Dose: 100 mg Gabapentin (Neurontin) 300 mg PO TID [facility] Last Admin: 01/18/17 16:44 Dose: 300 mg Guaifenesin/Dextromethorphan (Robitussin Dm) 10 ml PO Q4 PRN PRN Reason: Cough Last Admin: 01/13/17 10:51 Dose: 10 ml Hydrocortisone (Anusol-Hc) 1 applic [place] BID PRN PRN Reason: Inflammation Hydromorphone HCl (Dilaudid) 1 mg IVP Q4H PRN PRN Reason: Pain, severe (8-10) Last Admin: 01/18/17 18:26 Dose: 1 mg Sodium Chloride (Sodium Chloride 0.45%) 500 mls @ 10 mls/hr IV .Q24H [facility] Last Admin: 01/17/17 16:51 Dose: 10 mls/hr Ceftazidime/Avibactam 0.94 gm/ (Sodium Chloride) 100 mls @ 50 mls/hr IV QOTHERDAY@2200 [facility] Last Admin: 01/18/17 21:35 Dose: 50 mls/hr Daptomycin 650 mg/ Sodium (Chloride) 100 mls @ 100 mls/hr IVPB [facility] [place] [place] Stop: 02/10/17 09:59 Last Admin: 01/17/17 13:02 Dose: 100 mls/hr Gentamicin Sulfate/Sodium Chloride (Gentamicin 60mg/50ml Ns) 60 mg in 50 mls @ 50 mls/hr IVPB [facility] [place] [place] Insulin Detemir (Levemir) 24 units SC HS [facility] Last Admin: 01/18/17 22:13 Dose: 24 unit Insulin Human Lispro (Humalog) 12 units SC ACTID [facility] Last Admin: 01/18/17 16:43 Dose: 12 units Levalbuterol HCl (Xopenex) 0.63 mg INH RQ8 PRN PRN Reason: Shortness of Breath Metoprolol Tartrate (Lopressor) 25 mg PO Q12 [facility] Last Admin: 01/18/17 22:12 Dose: 25 mg Nystatin (Nystop Topical Powder) 1 applic TOP BID [facility] Last Admin: 01/18/17 16:45 Dose: 1 applic Ondansetron HCl (Zofran Inj) 4 mg IVP Q6 PRN PRN Reason: Nausea/Vomiting Last Admin: 09/19/16 10:26 Dose: 4 mg Pantoprazole Sodium (Protonix Ec Tab) 40 mg PO DAILY [facility] Last Admin: 01/18/17 08:47 Dose: 40 mg Repaglinide (Prandin) 1 mg PO TIDAC [facility] Last Admin: 01/18/17 16:45 Dose: 1 mg Sennosides (Senokot Tab) 25.8 mg PO HS [facility] Last Admin: 01/18/17 22:13 Dose: 25.8 mg Sevelamer HCl (Renagel) 1,600 mg PO TIDWM [facility] Last Admin: 01/18/17 16:46 Dose: 1,600 mg Simethicone (Mylicon Chew Tab) 80 mg PO Q4H PRN PRN Reason: flatulence or "gassy feeling:" Last Admin: 01/07/17 16:57 Dose: 80 mg Topiramate (Topamax) 50 mg PO BID [facility] Last Admin: 01/18/17 16:47 Dose: 50 mg Vitamin B Complex/Vit C/Folic Acid (Nephro-Ajay) 1 tab PO DAILY [facility] Last Admin: 01/18/17 08:43 Dose: 1 tab - Labs Labs: 01/17/17 11:00 01/17/17 11:00 PT 15.3 Seconds (9.8-13.1) H 12/02/16 13:05 INR 1.4 (0.9-1.2) H 12/02/16 13:05 APTT 37.0 Seconds (25.6-37.1) 12/02/16 13:05 Assessment and Plan (1) Diabetes Status: Chronic (2) ESRD (end stage renal disease) Status: Chronic (3) Cellulitis of leg Status: Chronic (4) Hyperlipidemia Status: Chronic (5) Back pain Status: Acute (6) Bacteremia due to Gram-negative bacteria Status: Acute (7) Diabetes mellitus type 2 with peripheral artery disease Status: Chronic (8) PVD (peripheral vascular disease) Status: Chronic (9) Osteomyelitis of right leg Status: Acute
[2017-01-19] MEDS: Insulin Lispro (humaLOG) 100 Units/ml Inj SC SCH ×3 (08:38→16:20)
[2017-01-19] MEDS: Multivitamin Vitamin B Complex (Nephro-Vite) Tab PO SCH (08:49)
[2017-01-19] MEDS: Pantoprazole 40 mg EC Tab PO SCH (08:52)
[2017-01-19] MEDS: Santyl Collagenase OINTMENT TOP SCH (08:54)
--- NOTE | 2017-01-19 12:52 | CP.PCM.PN ---
Subjective - Date & Time of Evaluation Date of Evaluation: 01/19/17 Time of Evaluation: 12:48 - Subjective Subjective: Glucoses running as high as 400+ despite resumption of insulin and continuation of Prandin. Could this be a Symogi effect?? The glucose was down to 282 this morning, but that is still high. Otherwise no new problems. Objective - Vital Signs/Intake and Output Vital Signs (last 24 hours): Temp Pulse Resp BP Pulse Ox 97.6 F 91 H 20 110/68 99 01/19/17 08:30 01/19/17 08:39 01/19/17 08:30 01/19/17 08:39 01/19/17 08:30 - Medications Medications: Current Medications Acetaminophen (Tylenol 325mg Tab) 650 mg PO Q4 PRN PRN Reason: Fever >100.4 F Last Admin: 12/26/16 19:40 Dose: 650 mg Acetaminophen (Tylenol 325mg Tab) 650 mg PO Q4 PRN PRN Reason: Pain, moderate (4-7) Last Admin: 12/26/16 05:14 Dose: 650 mg Apixaban (Eliquis) 5 mg PO BID [facility] PRN Reason: Protocol Last Admin: 01/19/17 08:38 Dose: 5 mg Aspirin (Ecotrin) 81 mg PO DAILY [facility] Last Admin: 01/19/17 08:37 Dose: 81 mg Atorvastatin Calcium (Lipitor) 40 mg PO DAILY [facility] Last Admin: 01/19/17 08:39 Dose: 40 mg Calcium Carbonate (Oscal) 500 mg PO BIDWM [facility] Last Admin: 01/19/17 08:51 Dose: 500 mg Collagenase (Santyl) 1 applic TOP DAILY [facility] Last Admin: 01/19/17 08:54 Dose: 1 applic Diphenhydramine HCl (Benadryl) 25 mg PO Q6 PRN PRN Reason: Itching / Pruritus Last Admin: 12/17/16 09:53 Dose: 25 mg Docusate Sodium (Colace) 100 mg PO BID [facility] Last Admin: 01/19/17 08:37 Dose: 100 mg Epoetin Tha (Procrit) 8,000 unit IV MWF [facility] Last Admin: 01/17/17 15:06 Dose: 8,000 unit Ergocalciferol (Drisdol 50,000 Intl Units Cap) 1 cap PO WED [facility] Last Admin: 01/15/17 09:08 Dose: 1 cap Fluconazole (Diflucan) 100 mg PO DAILY [facility] Last Admin: 01/19/17 08:37 Dose: 100 mg Gabapentin (Neurontin) 300 mg PO TID [facility] Last Admin: 01/19/17 12:11 Dose: 300 mg Guaifenesin/Dextromethorphan (Robitussin Dm) 10 ml PO Q4 PRN PRN Reason: Cough Last Admin: 01/13/17 10:51 Dose: 10 ml Hydrocortisone (Anusol-Hc) 1 applic [place] BID PRN PRN Reason: Inflammation Hydromorphone HCl (Dilaudid) 1 mg IVP Q4H PRN PRN Reason: Pain, severe (8-10) Last Admin: 01/19/17 12:08 Dose: 1 mg Sodium Chloride (Sodium Chloride 0.45%) 500 mls @ 10 mls/hr IV .Q24H [facility] Last Admin: 01/17/17 16:51 Dose: 10 mls/hr Ceftazidime/Avibactam 0.94 gm/ (Sodium Chloride) 100 mls @ 50 mls/hr IV QOTHERDAY@2200 [facility] Last Admin: 01/18/17 21:35 Dose: 50 mls/hr Daptomycin 650 mg/ Sodium (Chloride) 100 mls @ 100 mls/hr [place] [facility]: 02/10/17 09:59 Last Admin: 01/17/17 13:02 Dose: 100 mls/hr Gentamicin Sulfate/Sodium Chloride (Gentamicin 60mg/50ml Ns) 60 mg in 50 mls @ 50 mls/hr IVPB [facility] Insulin Detemir (Levemir) 30 units SC HS [facility] Insulin Human Lispro (Humalog) 14 units SC ACTID [facility] Levalbuterol HCl (Xopenex) 0.63 mg INH RQ8 PRN PRN Reason: Shortness of Breath Metoprolol Tartrate (Lopressor) 25 mg PO Q12 [facility] Last Admin: 01/19/17 08:39 Dose: 25 mg Nystatin (Nystop Topical Powder) 1 applic TOP BID [facility] Last Admin: 01/19/17 08:50 Dose: 1 applic Ondansetron HCl (Zofran Inj) 4 mg IVP Q6 PRN PRN Reason: Nausea/Vomiting Last Admin: 09/19/16 10:26 Dose: 4 mg Pantoprazole Sodium (Protonix Ec Tab) 40 mg PO DAILY [facility] Last Admin: 01/19/17 08:52 Dose: 40 mg Repaglinide (Prandin) 1 mg PO TIDAC [facility] Last Admin: 01/19/17 12:11 Dose: 1 mg Sennosides (Senokot Tab) 25.8 mg PO HS [facility] Last Admin: 01/18/17 22:13 Dose: 25.8 mg Sevelamer HCl (Renagel) 1,600 mg PO TIDWM [facility] Last Admin: 01/19/17 12:12 Dose: 1,600 mg Simethicone (Mylicon Chew Tab) 80 mg PO Q4H PRN PRN Reason: flatulence or "gassy feeling:" Last Admin: 01/07/17 16:57 Dose: 80 mg Topiramate (Topamax) 50 mg PO BID [facility] Last Admin: 01/19/17 08:53 Dose: 50 mg Vitamin B Complex/Vit C/Folic Acid (Nephro-Ajay) 1 tab PO DAILY [facility] Last Admin: 01/19/17 08:49 Dose: 1 tab - Labs Labs: 01/17/17 11:00 01/17/17 11:00 PT 15.3 Seconds (9.8-13.1) H 12/02/16 13:05 INR 1.4 (0.9-1.2) H 12/02/16 13:05 APTT 37.0 Seconds (25.6-37.1) 12/02/16 13:05 Assessment and Plan (1) Near syncope Status: Acute (2) Status post below knee amputation of right lower extremity Status: Acute (3) ESRD (end stage renal disease) on dialysis Status: Chronic (4) DM type 2 (diabetes mellitus, type 2) Status: Chronic (5) Coagulopathy Status: Chronic (6) Peripheral arterial occlusive disease Status: Chronic (7) Diabetes mellitus type 2 with peripheral artery disease Status: Chronic
--- NOTE | 2017-01-19 14:08 | PN ---
ENDO FOLLOWUP NOTE LOCATION: In room 661. SUBJECTIVE: This is a 46-year-old female with recent uncontrolled type 2 insulin-requiring diabetes, now being followed closely for metabolic management. Her glycemic levels are fluctuating, but much improved at this time and the latest glucose levels have ranged from 212 to 359 mg/dL. It was 438 at bedtime last night as noted. So for now, we will modify once again her basal and bolus insulin regimen and increase the Levemir to 30 units subcu at bedtime daily to start tonight. We will also increase the Humalog to 14 units subcu t.i.d. before meals to start at lunchtime today as ordered. We will titrate incrementally as indicated to optimize metabolic control. We will follow and advise accordingly. Irene Ambrose MD
--- NOTE | 2017-01-19 16:43 | CP.PCM.PN ---
Subjective - Date & Time of Evaluation Date of Evaluation: 01/19/17 Time of Evaluation: 16:34 - Subjective Subjective: She is awake, alert, Oriented fluent coherent speech, sitting in a Chair out of bed. She gets 1mg of Dilaudid every 4 hrs PRN Pain and today she received it twicw., She has no seizures on Topamax 50 mg Q12hrs. Her V.S are normal. She has a high blood Glucose level and is receiving Levemir. She is on Hemodialysis on ,,. Her Rt BKA infection is controlled. She will be receiving PT in AM. Objective - Vital Signs/Intake and Output Vital Signs (last 24 hours): Temp Pulse Resp BP Pulse Ox 97.8 F 93 H 18 109/75 97 01/19/17 15:31 01/19/17 15:31 01/19/17 15:31 01/19/17 15:31 01/19/17 15:31 - Medications Medications: Current Medications Acetaminophen (Tylenol 325mg Tab) 650 mg PO Q4 PRN PRN Reason: Fever >100.4 F Last Admin: 12/26/16 19:40 Dose: 650 mg Acetaminophen (Tylenol 325mg Tab) 650 mg PO Q4 PRN PRN Reason: Pain, moderate (4-7) Last Admin: 12/26/16 05:14 Dose: 650 mg Apixaban (Eliquis) 5 mg PO BID [facility] PRN Reason: Protocol Last Admin: 01/19/17 16:09 Dose: 5 mg Aspirin (Ecotrin) 81 mg PO DAILY [facility] Last Admin: 01/19/17 08:37 Dose: 81 mg Atorvastatin Calcium (Lipitor) 40 mg PO DAILY [facility] Last Admin: 01/19/17 08:39 Dose: 40 mg Calcium Carbonate (Oscal) 500 mg PO BIDWM [facility] Last Admin: 01/19/17 16:12 Dose: 500 mg Collagenase (Santyl) 1 applic TOP DAILY [facility] Last Admin: 01/19/17 08:54 Dose: 1 applic Diphenhydramine HCl (Benadryl) 25 mg PO Q6 PRN PRN Reason: Itching / Pruritus Last Admin: 12/17/16 09:53 Dose: 25 mg Docusate Sodium (Colace) 100 mg PO BID [facility] Last Admin: 01/19/17 16:09 Dose: 100 mg Epoetin Tha (Procrit) 8,000 unit IV [facility] [place] Last Admin: 01/17/17 15:06 Dose: 8,000 unit Ergocalciferol (Drisdol 50,000 Intl Units Cap) 1 cap PO WED [facility] Last Admin: 01/15/17 09:08 Dose: 1 cap Fluconazole (Diflucan) 100 mg PO DAILY [facility] Last Admin: 01/19/17 08:37 Dose: 100 mg Gabapentin (Neurontin) 300 mg PO TID [facility] Last Admin: 01/19/17 16:11 Dose: 300 mg Guaifenesin/Dextromethorphan (Robitussin Dm) 10 ml PO Q4 PRN PRN Reason: Cough Last Admin: 01/13/17 10:51 Dose: 10 ml Hydrocortisone (Anusol-Hc) 1 applic [place] BID PRN PRN Reason: Inflammation Hydromorphone HCl (Dilaudid) 1 mg IVP Q4H PRN PRN Reason: Pain, severe (8-10) Last Admin: 01/19/17 16:04 Dose: 1 mg Sodium Chloride (Sodium Chloride 0.45%) 500 mls @ 10 mls/hr IV .Q24H [facility] Last Admin: 01/19/17 16:18 Dose: 10 mls/hr Ceftazidime/Avibactam 0.94 gm/ (Sodium Chloride) 100 mls @ 50 mls/hr IV QOTHERDAY@2200 [facility] Last Admin: 01/18/17 21:35 Dose: 50 mls/hr Daptomycin 650 mg/ Sodium (Chloride) 100 mls @ 100 mls/hr IVPB [facility] [place] Stop: 02/10/17 09:59 Last Admin: 01/17/17 13:02 Dose: 100 mls/hr Gentamicin Sulfate/Sodium Chloride (Gentamicin 60mg/50ml Ns) 60 mg in 50 mls @ 50 mls/hr IVPB [facility] [place] Insulin Detemir (Levemir) 30 units SC HS [facility] Insulin Human Lispro (Humalog) 14 units SC ACTID [facility] Last Admin: 01/19/17 16:20 Dose: 14 u Levalbuterol HCl (Xopenex) 0.63 mg INH RQ8 PRN PRN Reason: Shortness of Breath Metoprolol Tartrate (Lopressor) 25 mg PO Q12 [facility] Last Admin: 01/19/17 08:39 Dose: 25 mg Nystatin (Nystop Topical Powder) 1 applic TOP BID [facility] Last Admin: 01/19/17 16:12 Dose: 1 applic Ondansetron HCl (Zofran Inj) 4 mg IVP Q6 PRN PRN Reason: Nausea/Vomiting Last Admin: 09/19/16 10:26 Dose: 4 mg Pantoprazole Sodium (Protonix Ec Tab) 40 mg PO DAILY [facility] Last Admin: 01/19/17 08:52 Dose: 40 mg Repaglinide (Prandin) 1 mg PO TIDAC [facility] Last Admin: 01/19/17 16:13 Dose: 1 mg Sennosides (Senokot Tab) 25.8 mg PO HS [facility] Last Admin: 01/18/17 22:13 Dose: 25.8 mg Sevelamer HCl (Renagel) 1,600 mg PO TIDWM [facility] Last Admin: 01/19/17 16:13 Dose: 1,600 mg Simethicone (Mylicon Chew Tab) 80 mg PO Q4H PRN PRN Reason: flatulence or "gassy feeling:" Last Admin: 01/07/17 16:57 Dose: 80 mg Topiramate (Topamax) 50 mg PO BID [facility] Last Admin: 01/19/17 16:14 Dose: 50 mg Vitamin B Complex/Vit C/Folic Acid (Nephro-Ajay) 1 tab PO DAILY [facility] Last Admin: 01/19/17 08:49 Dose: 1 tab - Labs Labs: 01/17/17 11:00 01/17/17 11:00 PT 15.3 Seconds (9.8-13.1) H 12/02/16 13:05 INR 1.4 (0.9-1.2) H 12/02/16 13:05 APTT 37.0 Seconds (25.6-37.1) 12/02/16 13:05 Assessment and Plan (1) Diabetes Status: Chronic (2) ESRD (end stage renal disease) Status: Chronic (3) Cellulitis of leg Status: Chronic (4) Hyperlipidemia Status: Chronic (5) Back pain Status: Acute (6) Bacteremia due to Gram-negative bacteria Status: Acute (7) Diabetes mellitus type 2 with peripheral artery disease Status: Chronic (8) PVD (peripheral vascular disease) Status: Chronic (9) Osteomyelitis of right leg Status: Acute
[2017-01-19] MEDS ORDERED: Insulin Detemir 100 Units/ml Inj SC SCH (22:00)
[2017-01-20] MEDS: Insulin Lispro (humaLOG) 100 Units/ml Inj SC SCH ×2 (08:26→12:42)
[2017-01-20] MEDS: Pantoprazole 40 mg EC Tab PO SCH (08:29)
[2017-01-20] MEDS: Multivitamin Vitamin B Complex (Nephro-Vite) Tab PO SCH (08:29)
[2017-01-20] MEDS: Santyl Collagenase OINTMENT TOP SCH (08:30)
--- NOTE | 2017-01-20 11:15 | CP.PCM.PN ---
Subjective - Date & Time of Evaluation Date of Evaluation: 01/20/17 Time of Evaluation: 11:11 - Subjective Subjective: Patient alert awake vital sign stable pulse 92 blood pressure okay Scheduled to have dialysis shortly Sodium bath 138 Potassium 20 mEq Ultrafiltration approximately 3000 mL Objective - Vital Signs/Intake and Output Vital Signs (last 24 hours): Temp Pulse Resp BP Pulse Ox 97.6 F 92 H 18 118/48 L 96 01/20/17 09:00 01/20/17 07:29 01/20/17 07:29 01/20/17 07:29 01/20/17 07:29 - Medications Medications: Current Medications Acetaminophen (Tylenol 325mg Tab) 650 mg PO Q4 PRN PRN Reason: Fever >100.4 F Last Admin: 12/26/16 19:40 Dose: 650 mg Acetaminophen (Tylenol 325mg Tab) 650 mg PO Q4 PRN PRN Reason: Pain, moderate (4-7) Last Admin: 12/26/16 05:14 Dose: 650 mg Apixaban (Eliquis) 5 mg PO BID [facility] PRN Reason: Protocol Last Admin: 01/20/17 08:28 Dose: 5 mg Aspirin (Ecotrin) 81 mg PO DAILY [facility] Last Admin: 01/20/17 08:28 Dose: 81 mg Atorvastatin Calcium (Lipitor) 40 mg PO DAILY [facility] Last Admin: 01/20/17 08:28 Dose: 40 mg Calcium Carbonate (Oscal) 500 mg PO BIDWM [facility] Last Admin: 01/20/17 08:29 Dose: 500 mg Collagenase (Santyl) 1 applic TOP DAILY [facility] Last Admin: 01/20/17 08:30 Dose: 1 applic Diphenhydramine HCl (Benadryl) 25 mg PO Q6 PRN PRN Reason: Itching / Pruritus Last Admin: 12/17/16 09:53 Dose: 25 mg Docusate Sodium (Colace) 100 mg PO BID [facility] Last Admin: 01/20/17 08:26 Dose: 100 mg Epoetin Tha (Procrit) 8,000 unit IV MWF [facility] Last Admin: 01/17/17 15:06 Dose: 8,000 unit Ergocalciferol (Drisdol 50,000 Intl Units Cap) 1 cap PO WED [facility] Last Admin: 01/15/17 09:08 Dose: 1 cap Fluconazole (Diflucan) 100 mg PO DAILY [facility] Last Admin: 01/20/17 08:29 Dose: 100 mg Gabapentin (Neurontin) 300 mg PO TID [facility] Last Admin: 01/20/17 08:29 Dose: 300 mg Guaifenesin/Dextromethorphan (Robitussin Dm) 10 ml PO Q4 PRN PRN Reason: Cough Last Admin: 01/13/17 10:51 Dose: 10 ml Hydrocortisone (Anusol-Hc) 1 applic IN BID PRN PRN Reason: Inflammation Hydromorphone HCl (Dilaudid) 1 mg IVP Q4H PRN PRN Reason: Pain, severe (8-10) Last Admin: 01/20/17 08:37 Dose: 1 mg Sodium Chloride (Sodium Chloride 0.45%) 500 mls @ 10 mls/hr IV .Q24H [facility] Last Admin: 01/19/17 16:18 Dose: 10 mls/hr Ceftazidime/Avibactam 0.94 gm/ (Sodium Chloride) 100 mls @ 50 mls/hr IV QOTHERDAY@2200 [facility] Last Admin: 01/18/17 21:35 Dose: 50 mls/hr Daptomycin 650 mg/ Sodium (Chloride) 100 mls @ 100 mls/hr IVPB [facility] [place] Stop: 02/10/17 09:59 Last Admin: 01/17/17 13:02 Dose: 100 mls/hr Gentamicin Sulfate/Sodium Chloride (Gentamicin 60mg/50ml Ns) 60 mg in 50 mls @ 50 mls/hr IVPB [facility] [place] Insulin Detemir (Levemir) 30 units SC HS [facility] Last Admin: 01/19/17 21:48 Dose: 30 unit Insulin Human Lispro (Humalog) 14 units SC ACTID [facility] Last Admin: 01/20/17 08:26 Dose: 14 u Levalbuterol HCl (Xopenex) 0.63 mg INH RQ8 PRN PRN Reason: Shortness of Breath Metoprolol Tartrate (Lopressor) 25 mg PO Q12 [facility] Last Admin: 01/20/17 08:28 Dose: Not Given Nystatin (Nystop Topical Powder) 1 applic TOP BID [facility] Last Admin: 01/20/17 08:29 Dose: 1 applic Ondansetron HCl (Zofran Inj) 4 mg IVP Q6 PRN PRN Reason: Nausea/Vomiting Last Admin: 09/19/16 10:26 Dose: 4 mg Pantoprazole Sodium (Protonix Ec Tab) 40 mg PO DAILY [facility] Last Admin: 01/20/17 08:29 Dose: 40 mg Repaglinide (Prandin) 2 mg PO TIDAC [facility] Last Admin: 01/20/17 08:30 Dose: 2 mg Sennosides (Senokot Tab) 25.8 mg PO HS [facility] Last Admin: 01/19/17 21:48 Dose: 25.8 mg Sevelamer HCl (Renagel) 1,600 mg PO TIDWM [facility] Last Admin: 01/20/17 08:30 Dose: 1,600 mg Simethicone (Mylicon Chew Tab) 80 mg PO Q4H PRN PRN Reason: flatulence or "gassy feeling:" Last Admin: 01/07/17 16:57 Dose: 80 mg Topiramate (Topamax) 50 mg PO BID [facility] Last Admin: 01/20/17 08:30 Dose: 50 mg Vitamin B Complex/Vit C/Folic Acid (Nephro-Ajay) 1 tab PO DAILY [facility] Last Admin: 01/20/17 08:29 Dose: 1 tab - Labs Labs: 01/17/17 11:00 01/17/17 11:00 PT 15.3 Seconds (9.8-13.1) H 12/02/16 13:05 INR 1.4 (0.9-1.2) H 12/02/16 13:05 APTT 37.0 Seconds (25.6-37.1) 12/02/16 13:05 - Constitutional Appears: No Acute Distress - Respiratory Exam Respiratory Exam: absent: Chest Wall Tenderness - Cardiovascular Exam Cardiovascular Exam: REGULAR RHYTHM. absent: Rubs - GI/Abdominal Exam GI & Abdominal Exam: Normal Bowel Sounds - Extremities Exam Extremities Exam: absent: Calf Tenderness - Back Exam Back Exam: absent: CVA tenderness (L), CVA tenderness (R) - Neurological Exam Neurological Exam: Alert Assessment and Plan (1) ESRD (end stage renal disease) Assessment & Plan: End stage renal disease on maintenance hemodialysis MWF Scheduled to have dialysis shortly and meantime No new events reported The rest of the problem as noted The rest of the medical problem as stated before in summary End stage renal disease on hemodialysis (MWF) via permacath: dialysis today as ordered. continue with Nephrovite 1 tab/day. Anemia Epogen with HD. .Hyperphosphatemia: continue with current meds as renagel 1600 TID, last phos 4.8 Secondary hyperparathyroidism with Vit D Deficiency: hold sensipar Last PTH level 63 Hypertension controlled: BP mostly on low side Glycemic control, Dialysis consistent diet Further work up/management as per primary team. 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 Dose meds/antibiotics for ESRD status. Avoid fleets enema/magnesium based laxatives. Status: Chronic (2) Cellulitis of leg Status: Chronic
--- NOTE | 2017-01-20 15:16 | CP.PCM.PN ---
Subjective - Date & Time of Evaluation Date of Evaluation: 01/20/17 Time of Evaluation: 15:14 - Subjective Subjective: Elevated glucoses are a real concern and may indicate infection. Discussed with Dr. Ambrose who has raised Humalog to 14 units tid ac and Levemir to 34 units qhs. She has ordered CBC, CMP, lipids, free T4/TSH, ESR, random gentamicin level, uric acid, Vit B12 and 25-OH Vitamin D levels. I have ordered blood cultures through the Permacath (routine and fungal) and routine blood culture through the PICC line and wound cultures of right knee and BK surgical site. Wound care to be done later today. Awaiting hemodialysis. Patient has exhausting workout for physical therapy this morning. She used sliding board to go from her bed to an adjacent bed to her wheelchair - all while wearing her left BK prosthesis. This represents a huge accomplishment. No fevers, cough, dyspnea or pains. Objective - Vital Signs/Intake and Output Vital Signs (last 24 hours): Temp Pulse Resp BP Pulse Ox 97.6 F 92 H 18 118/48 L 96 01/20/17 09:00 01/20/17 07:29 01/20/17 07:29 01/20/17 07:29 01/20/17 07:29 - Medications Medications: Current Medications Acetaminophen (Tylenol 325mg Tab) 650 mg PO Q4 PRN PRN Reason: Fever >100.4 F Last Admin: 12/26/16 19:40 Dose: 650 mg Acetaminophen (Tylenol 325mg Tab) 650 mg PO Q4 PRN PRN Reason: Pain, moderate (4-7) Last Admin: 01/20/17 11:28 Dose: 650 mg Apixaban (Eliquis) 5 mg PO BID [facility] PRN Reason: Protocol Last Admin: 01/20/17 08:28 Dose: 5 mg Aspirin (Ecotrin) 81 mg PO DAILY [facility] Last Admin: 01/20/17 08:28 Dose: 81 mg Atorvastatin Calcium (Lipitor) 40 mg PO DAILY [facility] Last Admin: 01/20/17 08:28 Dose: 40 mg Calcium Carbonate (Oscal) 500 mg PO BIDWM [facility] Last Admin: 01/20/17 08:29 Dose: 500 mg Collagenase (Santyl) 1 applic TOP DAILY [facility] Last Admin: 01/20/17 08:30 Dose: 1 applic Diphenhydramine HCl (Benadryl) 25 mg PO Q6 PRN PRN Reason: Itching / Pruritus Last Admin: 12/17/16 09:53 Dose: 25 mg Docusate Sodium (Colace) 100 mg PO BID [facility] Last Admin: 01/20/17 08:26 Dose: 100 mg Epoetin Tha (Procrit) 8,[address] [facility] [place] Last Admin: 01/17/17 15:06 Dose: 8,000 unit Ergocalciferol (Drisdol 50,000 Intl Units Cap) 1 cap PO WED [facility] Last Admin: 01/15/17 09:08 Dose: 1 cap Fluconazole (Diflucan) 100 mg PO DAILY [facility] Last Admin: 01/20/17 08:29 Dose: 100 mg Gabapentin (Neurontin) 300 mg PO TID [facility] Last Admin: 01/20/17 12:42 Dose: 300 mg Guaifenesin/Dextromethorphan (Robitussin Dm) 10 ml PO Q4 PRN PRN Reason: Cough Last Admin: 01/13/17 10:51 Dose: 10 ml Hydrocortisone (Anusol-Hc) 1 applic [place] BID PRN PRN Reason: Inflammation Hydromorphone HCl (Dilaudid) 1 mg IVP Q4H PRN PRN Reason: Pain, severe (8-10) Last Admin: 01/20/17 12:53 Dose: 1 mg Sodium Chloride (Sodium Chloride 0.45%) 500 mls @ 10 mls/hr IV .Q24H [facility] Last Admin: 01/19/17 16:18 Dose: 10 mls/hr Ceftazidime/Avibactam 0.94 gm/ (Sodium Chloride) 100 mls @ 50 mls/hr IV QOTHERDAY@2200 [facility] Last Admin: 01/18/17 21:35 Dose: 50 mls/hr Daptomycin 650 mg/ Sodium (Chloride) 100 mls @ 100 mls/hr IVPB [facility] [place] Stop: 02/10/17 09:59 Last Admin: 01/17/17 13:02 Dose: 100 mls/hr Gentamicin Sulfate/Sodium Chloride (Gentamicin 60mg/50ml Ns) 60 mg in 50 mls @ 50 mls/hr IVPB [facility] [place] Insulin Detemir (Levemir) 34 units SC HS [facility] Insulin Human Lispro (Humalog) 14 units SC ACTID [facility] Last Admin: 01/20/17 12:42 Dose: 14 u Levalbuterol HCl (Xopenex) 0.63 mg INH RQ8 PRN PRN Reason: Shortness of Breath Metoprolol Tartrate (Lopressor) 25 mg PO Q12 [facility] Last Admin: 01/20/17 08:28 Dose: Not Given Nystatin (Nystop Topical Powder) 1 applic TOP BID [facility] Last Admin: 01/20/17 08:29 Dose: 1 applic Ondansetron HCl (Zofran Inj) 4 mg IVP Q6 PRN PRN Reason: Nausea/Vomiting Last Admin: 09/19/16 10:26 Dose: 4 mg Pantoprazole Sodium (Protonix Ec Tab) 40 mg PO DAILY [facility] Last Admin: 01/20/17 08:29 Dose: 40 mg Repaglinide (Prandin) 2 mg PO TIDAC [facility] Last Admin: 01/20/17 12:43 Dose: 2 mg Sennosides (Senokot Tab) 25.8 mg PO HS [facility] Last Admin: 01/19/17 21:48 Dose: 25.8 mg Sevelamer HCl (Renagel) 1,600 mg PO TIDWM [facility] Last Admin: 01/20/17 12:41 Dose: 1,600 mg Simethicone (Mylicon Chew Tab) 80 mg PO Q4H PRN PRN Reason: flatulence or "gassy feeling:" Last Admin: 01/07/17 16:57 Dose: 80 mg Topiramate (Topamax) 50 mg PO BID [facility] Last Admin: 01/20/17 08:30 Dose: 50 mg Vitamin B Complex/Vit C/Folic Acid (Nephro-Ajay) 1 tab PO DAILY [facility] Last Admin: 01/20/17 08:29 Dose: 1 tab - Labs Labs: 01/17/17 11:00 01/17/17 11:00 PT 15.3 Seconds (9.8-13.1) H 12/02/16 13:05 INR 1.4 (0.9-1.2) H 12/02/16 13:05 APTT 37.0 Seconds (25.6-37.1) 12/02/16 13:05 - Constitutional Appears: No Acute Distress - Head Exam Head Exam: NORMAL INSPECTION - Eye Exam Eye Exam: Normal appearance - ENT Exam ENT Exam: Mucous Membranes Moist - Neck Exam Neck Exam: Normal Inspection Additional comments: Right subclavian Permacath intact. - Respiratory Exam Respiratory Exam: Clear to Ausculation Bilateral, NORMAL BREATHING PATTERN - Cardiovascular Exam Cardiovascular Exam: REGULAR RHYTHM, +S1, +S2 - GI/Abdominal Exam GI & Abdominal Exam: Soft, Normal Bowel Sounds - Extremities Exam Additional comments: Dressings and wound vac in place - awaiting change. Left femoral vein PICC line intact - Back Exam Back Exam: CVA tenderness (L) - Neurological Exam Neurological Exam: Alert, CN II-XII Intact, Oriented x3 - Psychiatric Exam Psychiatric exam: Normal Affect, Normal Mood - Skin Skin Exam: Dry, Normal Color, Warm Additional comments: Slight area of tenderness (? abrasion at right and left gluteal folds) occurred after prolonged sitting in wheelchair. Assessment and Plan (1) Status post below knee amputation of right lower extremity Assessment & Plan: Awaiting re-examination of right lower extremity wounds. Continue current 3 iv antibiotics and po fluconazole. Will discuss further with Dr. Lemon. Status: Acute (2) ESRD (end stage renal disease) on dialysis Status: Chronic (3) DM type 2 (diabetes mellitus, type 2) Assessment & Plan: Could loss of control be caused by infection? Do we need to chane the lines? See subjective. Management of glycemia by Dr. Ambrose. Status: Chronic (4) Coagulopathy Status: Chronic (5) Peripheral arterial occlusive disease Status: Chronic
[2017-01-20 17:15] LABS: BASO # 0.1 K/uL (0.0-0.2); BASO % 0.7 % (0.0-2.0); EOS # 0.9 K/uL (0.0-0.7); EOS % 9.4 % (0.0-4.0); HEMATOCRIT 37.2 % (34.0-47.0); LYMPH # 1.6 K/uL (1.0-4.3); LYMPH % 15.9 % (20.0-40.0); MEAN CELL VOLUME 96.2 fl (81.0-99.0); MEAN CORPUSCULAR HEMOGLOBIN 29.4 pg (27.0-31.0); MEAN CORPUSCULAR HGB CONC 30.5 g/dL (33.0-37.0); MEAN PLATELET VOLUME 10.8 fl (7.2-11.7); MONO # 1.1 K/uL (0.0-0.8); MONO % 11.5 % (0.0-10.0); NEUT # 6.3 K/uL (1.8-7.0); NEUT % 62.5 % (50.0-75.0); RED CELL DISTRIBUTION WIDTH 20.5 % (11.5-14.5)
[2017-01-20 17:48] LABS: ALB/GLOB RATIO 0.9 (1.0-2.1); BILIRUBIN,TOTAL 0.5 mg/dl (0.2-1.3); CALCIUM 9.4 mg/dL (8.4-10.2); POTASSIUM 4.8 MMOL/L (3.6-5.0); TOTAL PROTEIN 7.7 G/DL (6.3-8.2); URIC ACID 6.6 mg/Dl (2.2-7.5)
[2017-01-20] MEDS: Epoetin Alfa 20000 UNIT/ML Inj IV SCH (18:14)
[2017-01-20 18:18] LABS: THYROID STIMULATING HORMONE 3.13 mIU/ML (0.46-4.68)
[2017-01-20] MEDS: Gentamicin 60mg/50ml NS 60 MG/50 ML BAG IVPB SCH (21:43)
[2017-01-20] MEDS: Insulin Detemir 100 Units/ml Inj SC SCH (22:39)
--- NOTE | 2017-01-20 23:52 | CP.PCM.PN ---
Subjective - Date & Time of Evaluation Date of Evaluation: 01/20/17 Time of Evaluation: 20:25 - Subjective Subjective: She is doing better, awake, alert, oriented, with good appetite. No seizures are reported, she is on P.O Topamax 50 mg BID. Her lipid profile is showing normal values except for Low HDL, as she has a significant PVD. Her Vitamin B12 level is very adequate. Her Uric acid is normal, her Wound cultures and blood cultures are not showing any growth. Her wound of the Right BKA, the vacuum is changed. It is healing adequately. She has some pain from time to time at her right knee stump. Her Creatinine level is high at 9.1 and the BUN is also high at 76. She is receiving Hemodialysis for her ESRD on ,,. Her Vitamin D level is low at 28.1. TSH is normal Her serum Glucose is less high. She has slightly abnormal LFT of no significance, and her ESR is high at 91. Her CBC Diff shows mild changes, no significant anemia. She is receiving P.T VS are normal except for mild Tachycardia. Objective - Vital Signs/Intake and Output Vital Signs (last 24 hours): Temp Pulse Resp BP Pulse Ox 97.9 F 104 H 20 100/71 95 01/20/17 15:56 01/20/17 22:18 01/20/17 15:56 01/20/17 22:18 01/20/17 15:56 - Medications Medications: Current Medications Acetaminophen (Tylenol 325mg Tab) 650 mg PO Q4 PRN PRN Reason: Fever >100.4 F Last Admin: 12/26/16 19:40 Dose: 650 mg Acetaminophen (Tylenol 325mg Tab) 650 mg PO Q4 PRN PRN Reason: Pain, moderate (4-7) Last Admin: 01/20/17 11:28 Dose: 650 mg Apixaban (Eliquis) 5 mg PO BID [facility] PRN Reason: Protocol Last Admin: 01/20/17 16:40 Dose: 5 mg Aspirin (Ecotrin) 81 mg PO DAILY [facility] Last Admin: 01/20/17 08:28 Dose: 81 mg Atorvastatin Calcium (Lipitor) 40 mg PO DAILY [facility] Last Admin: 01/20/17 08:28 Dose: 40 mg Calcium Carbonate (Oscal) 500 mg PO BIDWM [facility] Last Admin: 01/20/17 16:41 Dose: 500 mg Collagenase (Santyl) 1 applic TOP DAILY [facility] Last Admin: 01/20/17 08:30 Dose: 1 applic Diphenhydramine HCl (Benadryl) 25 mg PO Q6 PRN PRN Reason: Itching / Pruritus Last Admin: 12/17/16 09:53 Dose: 25 mg Docusate Sodium (Colace) 100 mg PO BID [facility] Last Admin: 01/20/17 16:42 Dose: 100 mg Epoetin Tha (Procrit) 8,000 [place] [facility] [place] Admin: 01/20/17 18:14 Dose: 8,000 unit Ergocalciferol (Drisdol 50,000 Intl Units Cap) 1 cap PO WED [facility] Last Admin: 01/15/17 09:08 Dose: 1 cap Fluconazole (Diflucan) 100 mg PO DAILY [facility] Last Admin: 01/20/17 08:29 Dose: 100 mg Gabapentin (Neurontin) 300 mg PO TID [facility] Last Admin: 01/20/17 16:40 Dose: 300 mg Guaifenesin/Dextromethorphan (Robitussin Dm) 10 ml PO Q4 PRN PRN Reason: Cough Last Admin: 01/13/17 10:51 Dose: 10 ml Hydrocortisone (Anusol-Hc) 1 applic NE BID PRN PRN Reason: Inflammation Hydromorphone HCl (Dilaudid) 1 mg IVP Q4H PRN PRN Reason: Pain, severe (8-10) Last Admin: 01/20/17 20:45 Dose: 1 mg Sodium Chloride (Sodium Chloride 0.45%) 500 mls @ 10 mls/hr IV .Q24H [facility] Last Admin: 01/19/17 16:18 Dose: 10 mls/hr Ceftazidime/Avibactam 0.94 gm/ (Sodium Chloride) 100 mls @ 50 mls/hr IV QOTHERDAY@2200 [facility] Last Admin: 01/20/17 22:35 Dose: 50 mls/hr Daptomycin 650 mg/ Sodium (Chloride) 100 mls @ 100 mls/hr [place] [facility] [place]: 02/10/17 09:59 Last Admin: 01/20/17 20:38 Dose: 100 mls/hr Gentamicin Sulfate/Sodium Chloride (Gentamicin 60mg/50ml Ns) 60 mg in 50 mls @ 50 mls/hr IVPB MWF [facility] Last Admin: 01/20/17 21:43 Dose: 50 mls/hr Insulin Detemir (Levemir) 34 units SC HS [facility] Last Admin: 01/20/17 22:39 Dose: 34 u Insulin Human Lispro (Humalog) 14 units SC ACTID [facility] Last Admin: 01/20/17 12:42 Dose: 14 u Levalbuterol HCl (Xopenex) 0.63 mg INH RQ8 PRN PRN Reason: Shortness of Breath Metoprolol Tartrate (Lopressor) 25 mg PO Q12 [facility] Last Admin: 01/20/17 22:18 Dose: 25 mg Nystatin (Nystop Topical Powder) 1 applic TOP BID [facility] Last Admin: 01/20/17 16:41 Dose: 1 applic Ondansetron HCl (Zofran Inj) 4 mg IVP Q6 PRN PRN Reason: Nausea/Vomiting Last Admin: 09/19/16 10:26 Dose: 4 mg Pantoprazole Sodium (Protonix Ec Tab) 40 mg PO DAILY [facility] Last Admin: 01/20/17 08:29 Dose: 40 mg Repaglinide (Prandin) 2 mg PO TIDAC [facility] Last Admin: 01/20/17 16:41 Dose: 2 mg Sennosides (Senokot Tab) 25.8 mg PO HS [facility] Last Admin: 01/20/17 22:19 Dose: 25.8 mg Sevelamer HCl (Renagel) 1,600 mg PO TIDWM [facility] Last Admin: 01/20/17 22:33 Dose: 1,600 mg Simethicone (Mylicon Chew Tab) 80 mg PO Q4H PRN PRN Reason: flatulence or "gassy feeling:" Last Admin: 01/07/17 16:57 Dose: 80 mg Topiramate (Topamax) 50 mg PO BID [facility] Last Admin: 01/20/17 16:42 Dose: 50 mg Vitamin B Complex/Vit C/Folic Acid (Nephro-Ajay) 1 tab PO DAILY [facility] Last Admin: 01/20/17 08:29 Dose: 1 tab - Labs Labs: 01/20/17 16:30 01/20/17 18:10 PT 15.3 Seconds (9.8-13.1) H 12/02/16 13:05 INR 1.4 (0.9-1.2) H 12/02/16 13:05 APTT 37.0 Seconds (25.6-37.1) 12/02/16 13:05 Assessment and Plan (1) Diabetes Status: Chronic (2) ESRD (end stage renal disease) Status: Chronic (3) Cellulitis of leg Status: Chronic (4) Hyperlipidemia Status: Chronic (5) Back pain Status: Acute (6) Bacteremia due to Gram-negative bacteria Status: Acute (7) Diabetes mellitus type 2 with peripheral artery disease Status: Deleted (8) PVD (peripheral vascular disease) Status: Chronic (9) Osteomyelitis of right leg Status: Acute
[2017-01-21] MEDS: Pantoprazole 40 mg EC Tab PO SCH (08:16)
[2017-01-21] MEDS: Multivitamin Vitamin B Complex (Nephro-Vite) Tab PO SCH (08:18)
[2017-01-21] MEDS: Santyl Collagenase OINTMENT TOP SCH (08:19)
[2017-01-21] MEDS: Insulin Lispro (humaLOG) 100 Units/ml Inj SC SCH ×3 (08:19→16:29)
--- NOTE | 2017-01-21 11:46 | CP.PCM.PN ---
Subjective - Date & Time of Evaluation Date of Evaluation: 01/21/17 Time of Evaluation: 11:39 - Subjective Subjective: Patient is comfortable and aout to start physical therapy. Not only does right BK wound look better with excellent granulation tissue and slowly filling in, but her wbc is only 10,000 with no marked shift to left. The right patellar area remains a concern as there is only 50 % granulation tissue and still significant necrotic tissue in the center. She continues on IV ceftazidime/avibactam, daptomycin, and gentamicin. NB: There are two ranges for the gentamicin trough 0 - 0.20, and 2-5. It depends on who is speaking??? We decreased the gentamicin because the level was 3 (trough), but perhaps we should not have ??? Current random level is 2.8. Wound cultues and blood cultures are pending. The ESR is 91. Glucoses are coming down on insulin + Prandin as ordered by Dr. Ambrose. We are concerned that the sudden loss of glycemic control was precipitated by infection somewhere - possibly in one or both of her IV lines. (Permacath and PICC). Glucose is 152 this morning. Otherwise stable with no fevers, cough, dyspnea, or pain. Objective - Vital Signs/Intake and Output Vital Signs (last 24 hours): Temp Pulse Resp BP Pulse Ox 97.9 F 101 H 18 149/61 97 01/21/17 07:24 01/21/17 08:16 01/21/17 07:24 01/21/17 08:16 01/21/17 07:24 - Medications Medications: Current Medications Acetaminophen (Tylenol 325mg Tab) 650 mg PO Q4 PRN PRN Reason: Fever >100.4 F Last Admin: 12/26/16 19:40 Dose: 650 mg Acetaminophen (Tylenol 325mg Tab) 650 mg PO Q4 PRN PRN Reason: Pain, moderate (4-7) Last Admin: 01/20/17 11:28 Dose: 650 mg Apixaban (Eliquis) 5 mg PO BID [facility] PRN Reason: Protocol Last Admin: 01/21/17 08:15 Dose: 5 mg Aspirin (Ecotrin) 81 mg PO DAILY [facility] Last Admin: 01/21/17 08:16 Dose: 81 mg Atorvastatin Calcium (Lipitor) 40 mg PO DAILY [facility] Last Admin: 01/21/17 08:19 Dose: 40 mg Calcium Carbonate (Oscal) 500 mg PO BIDWM [facility] Last Admin: 01/21/17 08:17 Dose: 500 mg Collagenase (Santyl) 1 applic TOP DAILY [facility] Last Admin: 01/21/17 08:19 Dose: 1 applic Diphenhydramine HCl (Benadryl) 25 mg PO Q6 PRN PRN Reason: Itching / Pruritus Last Admin: 12/17/16 09:53 Dose: 25 mg Docusate Sodium (Colace) 100 mg PO BID [facility] Last Admin: 01/21/17 08:17 Dose: 100 mg Epoetin Tha (Procrit) 8,000 [place] [facility] [place] Admin: 01/20/17 18:14 Dose: 8,000 unit Ergocalciferol (Drisdol 50,000 Intl Units Cap) 1 cap PO WED [facility] Last Admin: 01/15/17 09:08 Dose: 1 cap Fluconazole (Diflucan) 100 mg PO DAILY [facility] Last Admin: 01/21/17 08:15 Dose: 100 mg Gabapentin (Neurontin) 300 mg PO TID [facility] Last Admin: 01/21/17 08:15 Dose: 300 mg Guaifenesin/Dextromethorphan (Robitussin Dm) 10 ml PO Q4 PRN PRN Reason: Cough Last Admin: 01/13/17 10:51 Dose: 10 ml Hydrocortisone (Anusol-Hc) 1 applic [place] BID PRN PRN Reason: Inflammation Hydromorphone HCl (Dilaudid) 1 mg IVP Q4H PRN PRN Reason: Pain, severe (8-10) Last Admin: 01/21/17 08:10 Dose: 1 mg Sodium Chloride (Sodium Chloride 0.45%) 500 mls @ 10 mls/hr IV .Q24H [facility] Last Admin: 01/19/17 16:18 Dose: 10 mls/hr Ceftazidime/Avibactam 0.94 gm/ (Sodium Chloride) 100 mls @ 50 mls/hr IV QOTHERDAY@2200 [facility] Last Admin: 01/20/17 22:35 Dose: 50 mls/hr Daptomycin 650 mg/ Sodium (Chloride) 100 mls @ 100 mls/hr [place] [facility] [place]: 02/10/17 09:59 Last Admin: 01/20/17 20:38 Dose: 100 mls/hr Gentamicin Sulfate/Sodium Chloride (Gentamicin 60mg/50ml Ns) 60 mg in 50 mls @ 50 mls/hr IVPB MWF [facility] Last Admin: 01/20/17 21:43 Dose: 50 mls/hr Insulin Detemir (Levemir) 34 units SC HS [facility] Last Admin: 01/20/17 22:39 Dose: 34 u Insulin Human Lispro (Humalog) 14 units SC ACTID [facility] Last Admin: 01/21/17 08:19 Dose: 14 u Levalbuterol HCl (Xopenex) 0.63 mg INH RQ8 PRN PRN Reason: Shortness of Breath Metoprolol Tartrate (Lopressor) 25 mg PO Q12 [facility] Last Admin: 01/21/17 08:16 Dose: 25 mg Nystatin (Nystop Topical Powder) 1 applic TOP BID [facility] Last Admin: 01/21/17 08:18 Dose: 1 applic Ondansetron HCl (Zofran Inj) 4 mg IVP Q6 PRN PRN Reason: Nausea/Vomiting Last Admin: 09/19/16 10:26 Dose: 4 mg Pantoprazole Sodium (Protonix Ec Tab) 40 mg PO DAILY [facility] Last Admin: 01/21/17 08:16 Dose: 40 mg Repaglinide (Prandin) 2 mg PO TIDAC [facility] Last Admin: 01/21/17 08:15 Dose: 2 mg Sennosides (Senokot Tab) 25.8 mg PO [facility] Last Admin: 01/20/17 22:19 Dose: 25.8 mg Sevelamer HCl (Renagel) 1,600 mg PO TIDWM [facility] Last Admin: 01/21/17 08:15 Dose: 1,600 mg Simethicone (Mylicon Chew Tab) 80 mg PO Q4H PRN PRN Reason: flatulence or "gassy feeling:" Last Admin: 01/07/17 16:57 Dose: 80 mg Topiramate (Topamax) 50 mg PO BID [facility] Last Admin: 01/21/17 08:16 Dose: 50 mg Vitamin B Complex/Vit C/Folic Acid (Nephro-Ajay) 1 tab PO DAILY [facility] Last Admin: 01/21/17 08:18 Dose: 1 tab - Labs Labs: 01/20/17 16:30 01/20/17 18:10 PT 15.3 Seconds (9.8-13.1) H 12/02/16 13:05 INR 1.4 (0.9-1.2) H 12/02/16 13:05 APTT 37.0 Seconds (25.6-37.1) 12/02/16 13:05 - Constitutional Appears: No Acute Distress - Head Exam Head Exam: NORMAL INSPECTION - Eye Exam Eye Exam: Normal appearance - ENT Exam ENT Exam: Mucous Membranes Moist - Neck Exam Neck Exam: Normal Inspection - Respiratory Exam Respiratory Exam: Clear to Ausculation Bilateral, NORMAL BREATHING PATTERN - Cardiovascular Exam Cardiovascular Exam: REGULAR RHYTHM, +S1, +S2 - GI/Abdominal Exam GI & Abdominal Exam: Soft - Extremities Exam Additional comments: RLE wound vac and dressings in place. Left femoral vein PICC line intact. Hands warm. - Back Exam Back Exam: NORMAL INSPECTION - Neurological Exam Neurological Exam: Alert, CN II-XII Intact, Oriented x3 - Psychiatric Exam Psychiatric exam: Normal Affect, Normal Mood - Skin Skin Exam: Dry, Normal Color, Warm Assessment and Plan (1) Status post below knee amputation of right lower extremity Assessment & Plan: Slowly healing but patella remains a concern. Status: Acute (2) ESRD (end stage renal disease) on dialysis Status: Chronic (3) DM type 2 (diabetes mellitus, type 2) Assessment & Plan: Better control. Status: Chronic (4) Peripheral arterial occlusive disease Status: Chronic (5) Coagulopathy Assessment & Plan: No bleeding or clotting. To continue Eliquis and ASA. Status: Chronic
--- NOTE | 2017-01-21 18:52 | PN ---
ENDO FOLLOWUP NOTE Room #661. This is a 46-year-old female with recent uncontrolled type 2 insulin-requiring diabetes with recent hyperglycemic accelerations and has been started back on her basal and bolus insulin regimen as ordered. So, at this time, her glucose values have ranged from 103 to 152 mg/dL today as noted. Her chemistry showed a BUN of 76, sodium 137, potassium 4.8, chloride 100, CO2 of 21, glucose 228, and creatinine 9.1. So, at this time, we will continue the same basal and bolus insulin regimen to allow for dose equilibration and keep her on Levemir given as 34 units subcu at bedtime daily as ordered. We will continue the Humalog given as 14 units subcu t.i.d. before meals as given. We will obtain serial chemistries and supplement accordingly needed. We will follow with you. Irene Ambrose MD
[2017-01-21] MEDS: Insulin Detemir 100 Units/ml Inj SC SCH (21:57)
--- NOTE | 2017-01-21 22:40 | CP.PCM.PN ---
Subjective - Date & Time of Evaluation Date of Evaluation: 01/21/17 Time of Evaluation: 20:00 - Subjective Subjective: Patient Wound cultures and blood cultures are negative. Better Glucose value on Insulin, Humalog ( Insulin Lispro ) and levemir. Vital Signs are adequate and normal. No Seizures on Topamax 50 mg Q 12 Hrs. She is awake, alert, Oriented, active. She is receiving Hemodialysis on M,W,F for ESRD. She is receiving P.T. Objective - Vital Signs/Intake and Output Vital Signs (last 24 hours): Temp Pulse Resp BP Pulse Ox 98.1 F 97 H 18 107/74 95 01/21/17 16:21 01/21/17 21:56 01/21/17 16:21 01/21/17 21:56 01/21/17 16:21 - Medications Medications: Current Medications Acetaminophen (Tylenol 325mg Tab) 650 mg PO Q4 PRN PRN Reason: Fever >100.4 F Last Admin: 12/26/16 19:40 Dose: 650 mg Acetaminophen (Tylenol 325mg Tab) 650 mg PO Q4 PRN PRN Reason: Pain, moderate (4-7) Last Admin: 01/20/17 11:28 Dose: 650 mg Apixaban (Eliquis) 5 mg PO BID [facility] PRN Reason: Protocol Last Admin: 01/21/17 16:30 Dose: 5 mg Aspirin (Ecotrin) 81 mg PO DAILY [facility] Last Admin: 01/21/17 08:16 Dose: 81 mg Atorvastatin Calcium (Lipitor) 40 mg PO DAILY [facility] Last Admin: 01/21/17 08:19 Dose: 40 mg Calcium Carbonate (Oscal) 500 mg PO BIDWM [facility] Last Admin: 01/21/17 16:30 Dose: 500 mg Collagenase (Santyl) 1 applic TOP DAILY [facility] Last Admin: 01/21/17 08:19 Dose: 1 applic Diphenhydramine HCl (Benadryl) 25 mg PO Q6 PRN PRN Reason: Itching / Pruritus Last Admin: 12/17/16 09:53 Dose: 25 mg Docusate Sodium (Colace) 100 mg PO BID [facility] Last Admin: 01/21/17 16:32 Dose: 100 mg Epoetin Tha (Procrit) 8,000 unit IV MWF [facility] Last Admin: 01/20/17 18:14 Dose: 8,000 unit Ergocalciferol (Drisdol 50,000 Intl Units Cap) 1 cap PO WED [facility] Last Admin: 01/15/17 09:08 Dose: 1 cap Fluconazole (Diflucan) 100 mg PO DAILY [facility] Last Admin: 01/21/17 08:15 Dose: 100 mg Gabapentin (Neurontin) 300 mg PO TID [facility] Last Admin: 01/21/17 16:30 Dose: 300 mg Guaifenesin/Dextromethorphan (Robitussin Dm) 10 ml PO Q4 PRN PRN Reason: Cough Last Admin: 01/13/17 10:51 Dose: 10 ml Hydrocortisone (Anusol-Hc) 1 applic [place] BID PRN PRN Reason: Inflammation Hydromorphone HCl (Dilaudid) 1 mg IVP Q4H PRN PRN Reason: Pain, severe (8-10) Last Admin: 01/21/17 22:07 Dose: 1 mg Sodium Chloride (Sodium Chloride 0.45%) 500 mls @ 10 mls/hr IV .Q24H [facility] Last Admin: 01/21/17 16:33 Dose: Not Given Ceftazidime/Avibactam 0.94 gm/ (Sodium Chloride) 100 mls @ 50 mls/hr IV QOTHERDAY@2200 [facility] Last Admin: 01/20/17 22:35 Dose: 50 mls/hr Daptomycin 650 mg/ Sodium (Chloride) 100 mls @ 100 mls/hr [place] [facility] [place]: 02/10/17 09:59 Last Admin: 01/20/17 20:38 Dose: 100 mls/hr Gentamicin Sulfate/Sodium Chloride (Gentamicin 60mg/50ml Ns) 60 mg in 50 mls @ 50 mls/hr [place] [facility] [place] Last Admin: 01/20/17 21:43 Dose: 50 mls/hr Insulin Detemir (Levemir) 34 units SC HS [facility] Last Admin: 01/21/17 21:57 Dose: 34 u Insulin Human Lispro (Humalog) 14 units SC ACTID [facility] Last Admin: 01/21/17 16:29 Dose: Not Given Levalbuterol HCl (Xopenex) 0.63 mg INH RQ8 PRN PRN Reason: Shortness of Breath Metoprolol Tartrate (Lopressor) 25 mg PO Q12 [facility] Last Admin: 01/21/17 21:56 Dose: 25 mg Nystatin (Nystop Topical Powder) 1 applic TOP BID [facility] Last Admin: 01/21/17 16:31 Dose: 1 applic Ondansetron HCl (Zofran Inj) 4 mg IVP Q6 PRN PRN Reason: Nausea/Vomiting Last Admin: 09/19/16 10:26 Dose: 4 mg Pantoprazole Sodium (Protonix Ec Tab) 40 mg PO DAILY [facility] Last Admin: 01/21/17 08:16 Dose: 40 mg Repaglinide (Prandin) 2 mg PO TIDAC [facility] Last Admin: 01/21/17 16:31 Dose: 2 mg Sennosides (Senokot Tab) 25.8 mg PO HS [facility] Last Admin: 01/21/17 21:55 Dose: 25.8 mg Sevelamer HCl (Renagel) 1,600 mg PO TIDWM [facility] Last Admin: 01/21/17 16:33 Dose: 1,600 mg Simethicone (Mylicon Chew Tab) 80 mg PO Q4H PRN PRN Reason: flatulence or "gassy feeling:" Last Admin: 01/07/17 16:57 Dose: 80 mg Topiramate (Topamax) 50 mg PO BID [facility] Last Admin: 01/21/17 16:31 Dose: 50 mg Vitamin B Complex/Vit C/Folic Acid (Nephro-Ajay) 1 tab PO DAILY [facility] Last Admin: 01/21/17 08:18 Dose: 1 tab - Labs Labs: 01/20/17 16:30 01/20/17 18:10 PT 15.3 Seconds (9.8-13.1) H 12/02/16 13:05 INR 1.4 (0.9-1.2) H 12/02/16 13:05 APTT 37.0 Seconds (25.6-37.1) 12/02/16 13:05 Assessment and Plan (1) Diabetes Status: Chronic (2) ESRD (end stage renal disease) Status: Chronic (3) Cellulitis of leg Status: Chronic (4) Hyperlipidemia Status: Chronic (5) Back pain Status: Acute (6) Bacteremia due to Gram-negative bacteria Status: Acute (7) Diabetes mellitus type 2 with peripheral artery disease Status: Deleted (8) PVD (peripheral vascular disease) Status: Chronic (9) Osteomyelitis of right leg Status: Acute
[2017-01-22] MEDS: Gentamicin 60mg/50ml NS 60 MG/50 ML BAG IVPB SCH (08:38)
[2017-01-22] MEDS: Insulin Lispro (humaLOG) 100 Units/ml Inj SC SCH ×4 (08:40→16:46)
[2017-01-22] MEDS: Multivitamin Vitamin B Complex (Nephro-Vite) Tab PO SCH (08:44)
[2017-01-22] MEDS: Pantoprazole 40 mg EC Tab PO SCH (08:46)
[2017-01-22] MEDS: Santyl Collagenase OINTMENT TOP SCH (08:51)
--- NOTE | 2017-01-22 10:58 | CP.PCM.PN ---
Subjective - Date & Time of Evaluation Date of Evaluation: 01/22/17 Time of Evaluation: 10:54 - Subjective Subjective: Patient had a very good day yesterday - with transfer from bed to wheelchair using sliding board. She also went outside for sidewalk specific physical therapy in wheelchair. Then she transferred back to bed using sliding board. All of this, of course, with considerable assistance from physical therapists. Wound vac to be changed tomorrow by Shaye Terry, wound care nurse. R patella receives daily "saline gauze scrub" for debridement and then application of Santyl + saline gauze dressing. Patient continues on 3 IV antibiotics and po fluconazole. So far the repeat cultures of 01/20 (blood from Permacath, blood from PICC, patellar wound and BK surgical wound) are all negative. Glucoses running around 100 - on new regimen by Dr. Ambrose: Humalog 14 units tid ac and Levemir 34 units qhs + Po Prandin 1mg tid ac. Pulse and blood pressure well-regulated on Metoprolol tartrate 25 mg bid. No bleeding or clotting, no seizures, no fevers, cough, dyspnea, or pain. Objective - Vital Signs/Intake and Output Vital Signs (last 24 hours): Temp Pulse Resp BP Pulse Ox 97.7 F 90 18 109/74 98 01/22/17 07:29 01/22/17 08:43 01/22/17 07:29 01/22/17 08:43 01/22/17 07:29 - Medications Medications: Current Medications Acetaminophen (Tylenol 325mg Tab) 650 mg PO Q4 PRN PRN Reason: Fever >100.4 F Last Admin: 12/26/16 19:40 Dose: 650 mg Acetaminophen (Tylenol 325mg Tab) 650 mg PO Q4 PRN PRN Reason: Pain, moderate (4-7) Last Admin: 01/20/17 11:28 Dose: 650 mg Apixaban (Eliquis) 5 mg PO BID [facility] PRN Reason: Protocol Last Admin: 01/22/17 08:36 Dose: 5 mg Aspirin (Ecotrin) 81 mg PO DAILY [facility] Last Admin: 01/22/17 08:34 Dose: 81 mg Atorvastatin Calcium (Lipitor) 40 mg PO DAILY [facility] Last Admin: 01/22/17 08:43 Dose: 40 mg Calcium Carbonate (Oscal) 500 mg PO BIDWM [facility] Last Admin: 01/22/17 08:45 Dose: 500 mg Collagenase (Santyl) 1 applic TOP DAILY [facility] Last Admin: 01/22/17 08:51 Dose: 1 applic Diphenhydramine HCl (Benadryl) 25 mg PO Q6 PRN PRN Reason: Itching / Pruritus Last Admin: 12/17/16 09:53 Dose: 25 mg Docusate Sodium (Colace) 100 mg PO BID [facility] Last Admin: 01/22/17 08:32 Dose: 100 mg Epoetin Tha (Procrit) 8,000 unit IV [facility] [place] Last Admin: 01/20/17 18:14 Dose: 8,000 unit Ergocalciferol (Drisdol 50,000 Intl Units Cap) 1 cap PO WED [facility] Last Admin: 01/15/17 09:08 Dose: 1 cap Fluconazole (Diflucan) 100 mg PO DAILY [facility] Last Admin: 01/22/17 08:33 Dose: 100 mg Gabapentin (Neurontin) 300 mg PO TID [facility] Last Admin: 01/22/17 08:44 Dose: 300 mg Guaifenesin/Dextromethorphan (Robitussin Dm) 10 ml PO Q4 PRN PRN Reason: Cough Last Admin: 01/13/17 10:51 Dose: 10 ml Hydrocortisone (Anusol-Hc) 1 applic [place] BID PRN PRN Reason: Inflammation Hydromorphone HCl (Dilaudid) 1 mg IVP Q4H PRN PRN Reason: Pain, severe (8-10) Last Admin: 01/22/17 10:39 Dose: 1 mg Sodium Chloride (Sodium Chloride 0.45%) 500 mls @ 10 mls/hr IV .Q24H [facility] Last Admin: 01/21/17 16:33 Dose: Not Given Ceftazidime/Avibactam 0.94 gm/ (Sodium Chloride) 100 mls @ 50 mls/hr IV QOTHERDAY@2200 [facility] Last Admin: 01/20/17 22:35 Dose: 50 mls/hr Daptomycin 650 mg/ Sodium (Chloride) 100 mls @ 100 mls/hr IVPB [facility] [place] Stop: 02/10/17 09:59 Last Admin: 01/20/17 20:38 Dose: 100 mls/hr Gentamicin Sulfate/Sodium Chloride (Gentamicin 60mg/50ml Ns) 60 mg in 50 mls @ 50 mls/hr IVPB MWF [facility] Last Admin: 01/22/17 08:38 Dose: 50 mls/hr Insulin Detemir (Levemir) 34 units SC HS [facility] Last Admin: 01/21/17 21:57 Dose: 34 u Insulin Human Lispro (Humalog) 14 units SC ACTID [facility] Last Admin: 01/22/17 08:40 Dose: 14 u Levalbuterol HCl (Xopenex) 0.63 mg INH RQ8 PRN PRN Reason: Shortness of Breath Metoprolol Tartrate (Lopressor) 25 mg PO Q12 [facility] Last Admin: 01/22/17 08:43 Dose: Not Given Nystatin (Nystop Topical Powder) 1 applic TOP BID [facility] Last Admin: 01/22/17 08:45 Dose: Not Given Ondansetron HCl (Zofran Inj) 4 mg IVP Q6 PRN PRN Reason: Nausea/Vomiting Last Admin: 09/19/16 10:26 Dose: 4 mg Pantoprazole Sodium (Protonix Ec Tab) 40 mg PO DAILY [facility] Last Admin: 01/22/17 08:46 Dose: 40 mg Repaglinide (Prandin) 2 mg PO TIDAC [facility] Last Admin: 01/22/17 08:46 Dose: 2 mg Sennosides (Senokot Tab) 25.8 mg PO [facility] Last Admin: 01/21/17 21:55 Dose: 25.8 mg Sevelamer HCl (Renagel) 1,600 mg PO TIDWM [facility] Last Admin: 01/22/17 08:46 Dose: 1,600 mg Simethicone (Mylicon Chew Tab) 80 mg PO Q4H PRN PRN Reason: flatulence or "gassy feeling:" Last Admin: 01/07/17 16:57 Dose: 80 mg Topiramate (Topamax) 50 mg PO BID [facility] Last Admin: 01/22/17 08:50 Dose: 50 mg Vitamin B Complex/Vit C/Folic Acid (Nephro-Ajay) 1 tab PO DAILY [facility] Last Admin: 01/22/17 08:44 Dose: 1 tab - Labs Labs: 01/20/17 16:30 01/20/17 18:10 PT 15.3 Seconds (9.8-13.1) H 12/02/16 13:05 INR 1.4 (0.9-1.2) H 12/02/16 13:05 APTT 37.0 Seconds (25.6-37.1) 12/02/16 13:05 Microbiology 01/20/17 16:30 Blood-During Dialysis Blood Culture - Preliminary NO GROWTH AFTER 24 HOURS 01/20/17 16:30 Blood-During Dialysis Blood Culture - Preliminary NO GROWTH AFTER 24 HOURS 01/20/17 17:37 Thigh - Right Gram Stain - Final 01/20/17 17:37 Thigh - Right Wound Culture - Preliminary NO GROWTH AFTER 24 HOURS 01/20/17 17:37 Leg - Right Gram Stain - Final 01/20/17 17:37 Leg - Right Wound Culture - Preliminary NO GROWTH AFTER 24 HOURS - Constitutional Appears: No Acute Distress - Head Exam Head Exam: NORMAL INSPECTION - Eye Exam Eye Exam: Normal appearance - ENT Exam ENT Exam: Mucous Membranes Moist - Neck Exam Neck Exam: Normal Inspection - Respiratory Exam Respiratory Exam: Clear to Ausculation Bilateral, NORMAL BREATHING PATTERN - Cardiovascular Exam Cardiovascular Exam: REGULAR RHYTHM, +S1, +S2 - GI/Abdominal Exam GI & Abdominal Exam: Soft, Normal Bowel Sounds - Extremities Exam Additional comments: RLE dressings intact, wound vac with minimal drainage and no leakage. Hands warm. L BK residual limb warm with no lesions. - Back Exam Back Exam: NORMAL INSPECTION - Neurological Exam Neurological Exam: Alert, CN II-XII Intact, Oriented x3 - Psychiatric Exam Psychiatric exam: Normal Affect, Normal Mood - Skin Skin Exam: Dry, Normal Color, Warm Assessment and Plan (1) Status post below knee amputation of right lower extremity Assessment & Plan: Wound is gradually filling in from below and from the sides by secondary intention - greatly aided by negative pressure wound therapy. R patellar wound is slowly granulating in, and area of necrotic fibrinous tissue is getting smaller. Continue same Rx and Tx. Status: Acute (2) ESRD (end stage renal disease) on dialysis Assessment & Plan: stable Status: Chronic (3) DM type 2 (diabetes mellitus, type 2) Assessment & Plan: Better control now - but, still no explanation for the sudden loss of control. Still searching for sign/location of infection. Status: Chronic (4) Peripheral arterial occlusive disease Status: Chronic (5) Coagulopathy Status: Chronic
[2017-01-22] MEDS: Ergocalciferol 50,000 Intl Units Cap PO SCH (12:54)
--- NOTE | 2017-01-22 15:32 | CP.PCM.PN ---
Subjective - Date & Time of Evaluation Date of Evaluation: 01/22/17 Time of Evaluation: 15:30 - Subjective Subjective: Patient continued to doing much better Appetite is good No nausea or vomiting Hemodialysis about to start Order was given see my order . Ultrafiltration in the range of 3000 Anemia patient receiving EPO which dose has been changed and decrease couple days ago Continue monitoring Objective - Vital Signs/Intake and Output Vital Signs (last 24 hours): Temp Pulse Resp BP Pulse Ox 97.7 F 90 18 109/74 98 01/22/17 07:29 01/22/17 08:43 01/22/17 07:29 01/22/17 08:43 01/22/17 07:29 - Medications Medications: Current Medications Acetaminophen (Tylenol 325mg Tab) 650 mg PO Q4 PRN PRN Reason: Fever >100.4 F Last Admin: 12/26/16 19:40 Dose: 650 mg Acetaminophen (Tylenol 325mg Tab) 650 mg PO Q4 PRN PRN Reason: Pain, moderate (4-7) Last Admin: 01/20/17 11:28 Dose: 650 mg Apixaban (Eliquis) 5 mg PO BID [facility] PRN Reason: Protocol Last Admin: 01/22/17 08:36 Dose: 5 mg Aspirin (Ecotrin) 81 mg PO DAILY [facility] Last Admin: 01/22/17 08:34 Dose: 81 mg Atorvastatin Calcium (Lipitor) 40 mg PO DAILY [facility] Last Admin: 01/22/17 08:43 Dose: 40 mg Calcium Carbonate (Oscal) 500 mg PO BIDWM [facility] Last Admin: 01/22/17 08:45 Dose: 500 mg Collagenase (Santyl) 1 applic TOP DAILY [facility] Last Admin: 01/22/17 08:51 Dose: 1 applic Diphenhydramine HCl (Benadryl) 25 mg PO Q6 PRN PRN Reason: Itching / Pruritus Last Admin: 12/17/16 09:53 Dose: 25 mg Docusate Sodium (Colace) 100 mg PO BID [facility] Last Admin: 01/22/17 08:32 Dose: 100 mg Epoetin Tha (Procrit) 8,000 unit IV MWF [facility] Last Admin: 01/20/17 18:14 Dose: 8,000 unit Ergocalciferol (Drisdol 50,000 Intl Units Cap) 1 cap PO WED [facility] Last Admin: 01/22/17 12:54 Dose: 1 cap Fluconazole (Diflucan) 100 mg PO DAILY [facility] Last Admin: 01/22/17 08:33 Dose: 100 mg Gabapentin (Neurontin) 300 mg PO TID [facility] Last Admin: 01/22/17 12:57 Dose: 300 mg Guaifenesin/Dextromethorphan (Robitussin Dm) 10 ml PO Q4 PRN PRN Reason: Cough Last Admin: 01/13/17 10:51 Dose: 10 ml Hydrocortisone (Anusol-Hc) 1 applic [place] BID PRN PRN Reason: Inflammation Hydromorphone HCl (Dilaudid) 1 mg IVP Q4H PRN PRN Reason: Pain, severe (8-10) Last Admin: 01/22/17 10:39 Dose: 1 mg Sodium Chloride (Sodium Chloride 0.45%) 500 mls @ 10 mls/hr IV .Q24H [facility] Last Admin: 01/21/17 16:33 Dose: Not Given Ceftazidime/Avibactam 0.94 gm/ (Sodium Chloride) 100 mls @ 50 mls/hr IV QOTHERDAY@2200 [facility] Last Admin: 01/20/17 22:35 Dose: 50 mls/hr Daptomycin 650 mg/ Sodium (Chloride) 100 mls @ 100 mls/hr IVPB [facility] [place] Stop: 02/10/17 09:59 Last Admin: 01/22/17 12:52 Dose: 100 mls/hr Gentamicin Sulfate/Sodium Chloride (Gentamicin 60mg/50ml Ns) 60 mg in 50 mls @ 50 mls/hr IVPB [facility] [place] Last Admin: 01/22/17 08:38 Dose: 50 mls/hr Insulin Detemir (Levemir) 34 units SC HS [facility] Last Admin: 01/21/17 21:57 Dose: 34 u Insulin Human Lispro (Humalog) 14 units SC ACTID [facility] Last Admin: 01/22/17 12:54 Dose: 14 u Levalbuterol HCl (Xopenex) 0.63 mg INH RQ8 PRN PRN Reason: Shortness of Breath Metoprolol Tartrate (Lopressor) 25 mg PO Q12 [facility] Last Admin: 01/22/17 08:43 Dose: Not Given Nystatin (Nystop Topical Powder) 1 applic TOP BID [facility] Last Admin: 01/22/17 08:45 Dose: Not Given Ondansetron HCl (Zofran Inj) 4 mg IVP Q6 PRN PRN Reason: Nausea/Vomiting Last Admin: 09/19/16 10:26 Dose: 4 mg Pantoprazole Sodium (Protonix Ec Tab) 40 mg PO DAILY [facility] Last Admin: 01/22/17 08:46 Dose: 40 mg Repaglinide (Prandin) 2 mg PO TIDAC [facility] Last Admin: 01/22/17 12:58 Dose: 2 mg Sennosides (Senokot Tab) 25.8 mg PO HS [facility] Last Admin: 01/21/17 21:55 Dose: 25.8 mg Sevelamer HCl (Renagel) 1,600 mg PO TIDWM [facility] Last Admin: 01/22/17 12:59 Dose: 1,600 mg Simethicone (Mylicon Chew Tab) 80 mg PO Q4H PRN PRN Reason: flatulence or "gassy feeling:" Last Admin: 01/07/17 16:57 Dose: 80 mg Topiramate (Topamax) 50 mg PO BID [facility] Last Admin: 01/22/17 08:50 Dose: 50 mg Vitamin B Complex/Vit C/Folic Acid (Nephro-Ajay) 1 tab PO DAILY [facility] Last Admin: 01/22/17 08:44 Dose: 1 tab - Labs Labs: 01/20/17 16:30 01/20/17 18:10 PT 15.3 Seconds (9.8-13.1) H 12/02/16 13:05 INR 1.4 (0.9-1.2) H 12/02/16 13:05 APTT 37.0 Seconds (25.6-37.1) 12/02/16 13:05 - Constitutional Appears: No Acute Distress - ENT Exam ENT Exam: Mucous Membranes Moist - Respiratory Exam Respiratory Exam: absent: Chest Wall Tenderness - Cardiovascular Exam Cardiovascular Exam: absent: JVD, Rubs - GI/Abdominal Exam GI & Abdominal Exam: Normal Bowel Sounds. absent: Distended - Extremities Exam Extremities Exam: absent: Calf Tenderness - Back Exam Back Exam: absent: CVA tenderness (L), CVA tenderness (R) - Neurological Exam Neurological Exam: Alert Assessment and Plan (1) ESRD (end stage renal disease) Status: Chronic (2) Cellulitis of leg Status: Chronic
--- NOTE | 2017-01-22 20:49 | CP.PCM.PN ---
Subjective - Date & Time of Evaluation Date of Evaluation: 01/22/17 Time of Evaluation: 20:00 - Subjective Subjective: Clinically she is doing well, labs are showing a positive culture wound for Coagulase gram Negative Staphylococci. However Her wound is healing well according to the Vascular surgery reports. Right BKA Wound Vacuum will be changed in AM. She has Normal V.S and the Glucose is controlled. She has no seizures and she is on Topamax 50 mg Q 12hrs.. She is doing more work with PT. She received Hemodialysis today. Will follow ID Consult and her Culture sensitivity. Objective - Vital Signs/Intake and Output Vital Signs (last 24 hours): Temp Pulse Resp BP Pulse Ox 98.4 F 93 H 18 83/52 L 100 01/22/17 16:09 01/22/17 16:09 01/22/17 16:09 01/22/17 16:01/22/17 16:09 - Medications Medications: Current Medications Acetaminophen (Tylenol 325mg Tab) 650 mg PO Q4 PRN PRN Reason: Fever >100.4 F Last Admin: 12/26/16 19:40 Dose: 650 mg Acetaminophen (Tylenol 325mg Tab) 650 mg PO Q4 PRN PRN Reason: Pain, moderate (4-7) Last Admin: 01/20/17 11:28 Dose: 650 mg Apixaban (Eliquis) 5 mg PO BID [facility] PRN Reason: Protocol Last Admin: 01/22/17 16:45 Dose: 5 mg Aspirin (Ecotrin) 81 mg PO DAILY [facility] Last Admin: 01/22/17 08:34 Dose: 81 mg Atorvastatin Calcium (Lipitor) 40 mg PO DAILY [facility] Last Admin: 01/22/17 08:43 Dose: 40 mg Calcium Carbonate (Oscal) 500 mg PO BIDWM [facility] Last Admin: 01/22/17 16:48 Dose: 500 mg Collagenase (Santyl) 1 applic TOP DAILY [facility] Last Admin: 01/22/17 08:51 Dose: 1 applic Diphenhydramine HCl (Benadryl) 25 mg PO Q6 PRN PRN Reason: Itching / Pruritus Last Admin: 12/17/16 09:53 Dose: 25 mg Docusate Sodium (Colace) 100 mg PO BID [facility] Last Admin: 01/22/17 16:44 Dose: 100 mg Epoetin Tha (Procrit) 8,000 unit IV MWF [facility] Last Admin: 01/20/17 18:14 Dose: 8,000 unit Ergocalciferol (Drisdol 50,000 Intl Units Cap) 1 cap PO WED [facility] Last Admin: 01/22/17 12:54 Dose: 1 cap Fluconazole (Diflucan) 100 mg PO DAILY [facility] Last Admin: 01/22/17 08:33 Dose: 100 mg Gabapentin (Neurontin) 300 mg PO TID [facility] Last Admin: 01/22/17 16:47 Dose: 300 mg Guaifenesin/Dextromethorphan (Robitussin Dm) 10 ml PO Q4 PRN PRN Reason: Cough Last Admin: 01/13/17 10:51 Dose: 10 ml Hydrocortisone (Anusol-Hc) 1 applic [place] BID PRN PRN Reason: Inflammation Hydromorphone HCl (Dilaudid) 1 mg IVP Q4H PRN PRN Reason: Pain, severe (8-10) Last Admin: 01/22/17 20:04 Dose: 1 mg Sodium Chloride (Sodium Chloride 0.45%) 500 mls @ 10 mls/hr IV .Q24H [facility] Last Admin: 01/21/17 16:33 Dose: Not Given Ceftazidime/Avibactam 0.94 gm/ (Sodium Chloride) 100 mls @ 50 mls/hr IV QOTHERDAY@2200 [facility] Last Admin: 01/20/17 22:35 Dose: 50 mls/hr Daptomycin 650 mg/ Sodium (Chloride) 100 mls @ 100 mls/hr IVPB [facility] [place] Stop: 02/10/17 09:59 Last Admin: 01/22/17 12:52 Dose: 100 mls/hr Gentamicin Sulfate/Sodium Chloride (Gentamicin 60mg/50ml Ns) 60 mg in 50 mls @ 50 mls/hr IVPB [facility] [place] Last Admin: 01/22/17 08:38 Dose: 50 mls/hr Insulin Detemir (Levemir) 30 units SC HS [facility] Insulin Human Lispro (Humalog) 14 units SC ACTID [facility] Last Admin: 01/22/17 16:46 Dose: 14 u Levalbuterol HCl (Xopenex) 0.63 mg INH RQ8 PRN PRN Reason: Shortness of Breath Metoprolol Tartrate (Lopressor) 25 mg PO Q12 [facility] Last Admin: 01/22/17 08:43 Dose: Not Given Nystatin (Nystop Topical Powder) 1 applic TOP BID [facility] Last Admin: 01/22/17 16:47 Dose: 1 applic Ondansetron HCl (Zofran Inj) 4 mg IVP Q6 PRN PRN Reason: Nausea/Vomiting Last Admin: 09/19/16 10:26 Dose: 4 mg Pantoprazole Sodium (Protonix Ec Tab) 40 mg PO DAILY [facility] Last Admin: 01/22/17 08:46 Dose: 40 mg Repaglinide (Prandin) 2 mg PO TIDAC [facility] Last Admin: 01/22/17 16:48 Dose: 2 mg Sennosides (Senokot Tab) 25.8 mg PO HS [facility] Last Admin: 01/21/17 21:55 Dose: 25.8 mg Sevelamer HCl (Renagel) 1,600 mg PO TIDWM [facility] Last Admin: 01/22/17 16:49 Dose: 1,600 mg Simethicone (Mylicon Chew Tab) 80 mg PO Q4H PRN PRN Reason: flatulence or "gassy feeling:" Last Admin: 01/07/17 16:57 Dose: 80 mg Topiramate (Topamax) 50 mg PO BID [facility] Last Admin: 01/22/17 16:50 Dose: 50 mg Vitamin B Complex/Vit C/Folic Acid (Nephro-Ajay) 1 tab PO DAILY [facility] Last Admin: 01/22/17 08:44 Dose: 1 tab - Labs Labs: 01/20/17 16:30 01/20/17 18:10 PT 15.3 Seconds (9.8-13.1) H 12/02/16 13:05 INR 1.4 (0.9-1.2) H 12/02/16 13:05 APTT 37.0 Seconds (25.6-37.1) 12/02/16 13:05 Assessment and Plan (1) Diabetes Status: Chronic (2) ESRD (end stage renal disease) Status: Chronic (3) Cellulitis of leg Status: Chronic (4) Hyperlipidemia Status: Chronic (5) Back pain Status: Acute (6) Bacteremia due to Gram-negative bacteria Status: Acute (7) PVD (peripheral vascular disease) Status: Chronic (8) Osteomyelitis of right leg Status: Acute
[2017-01-22] MEDS: Insulin Detemir 100 Units/ml Inj SC SCH (21:48)
--- NOTE | 2017-01-22 22:37 | PN ---
DATE: ENDO FOLLOWUP NOTE Room 661. SUBJECTIVE: This is a 46-year-old female with recent uncontrolled type 2 insulin-requiring diabetes, developed recent hyperglycemic accelerations and is now being followed closely for metabolic management. Her glucose values have improved remarkably and today's glucose levels have range from 107 to 194 mg/dL. LABORATORY DATA: Her latest chemistry showed a BUN of 76, sodium 137, potassium 4.8, chloride 100, CO2 of 21, glucose 228, and creatinine 9.1. PLAN: So, at this time, we will modify and lower her basal insulin with Levemir to be given as 30 units subcu at bedtime daily to start tonight. We will continue the Humalog given as 14 units subcu t.i.d. before meals as ordered. We will titrate incrementally as indicated to optimize metabolic control. We will follow and advise accordingly. Irene Ambrose MD
[2017-01-23] MEDS: Insulin Lispro (humaLOG) 100 Units/ml Inj SC SCH ×3 (08:47→17:55)
[2017-01-23] MEDS: Epoetin Alfa 20000 UNIT/ML Inj IV SCH (08:53)
[2017-01-23] MEDS: Pantoprazole 40 mg EC Tab PO SCH (08:54)
[2017-01-23] MEDS: Santyl Collagenase OINTMENT TOP SCH (08:55)
[2017-01-23 09:16] LABS: MEAN CELL VOLUME 94.2 fl (81.0-99.0); MEAN CORPUSCULAR HEMOGLOBIN 29.3 pg (27.0-31.0); MEAN CORPUSCULAR HGB CONC 31.1 g/dL (33.0-37.0); RED CELL DISTRIBUTION WIDTH 20.3 % (11.5-14.5); WHITE BLOOD COUNT 5.1 K/uL (4.8-10.8)
[2017-01-23 09:50] LABS: CALCIUM 8.9 mg/dL (8.4-10.2); POTASSIUM 4.7 MMOL/L (3.6-5.0)
[2017-01-23] MEDS: Multivitamin Vitamin B Complex (Nephro-Vite) Tab PO SCH (10:00)
--- NOTE | 2017-01-23 10:20 | CP.PCM.PN ---
Subjective - Date & Time of Evaluation Date of Evaluation: 01/23/17 Time of Evaluation: 19:24 - Subjective Subjective: Patient was not dialyzed yesterday. For second time the machine (delivered late in the evening) was broken. So dialysis was postponed until today. Both gentamicin and daptomycin were inadvertently given ysterday. Dr. Lemon was called and said not to repeat these doses, but to give the ceftazidime/avibactam today after dialysis. Discussed with Dr. Alta Guadarrama, who will arrange for patient to have HD on Friday (01/25) insteady of tomorrow. Then all IV antibiotics are to be given after the Friday HD. Going forward she will return to the [facility] HD with antibiotics always to be given afterward. Random gentamicin pre-dialysis today was 3.6. [NB I discontinued gentamicin and daptomycin today so they will not be given tomorrow per the previous MW schedule. I will re-order these tomorrow for Friday dosing. The Ceftazidime/avibactam is given q48 hrs and so will be given tonight and Friday night.]Duc Ambrose has decreased the bedtime Levimir to 30 units since patient is doing so well. Wound vac was changed by Nurse Shaye Perea after HD today. The BK wound continues to look better as does the patellar wound (now 50 % or more granulation). Patient was tired after HD today so she did little physical therapy. Objective - Vital Signs/Intake and Output Vital Signs (last 24 hours): Temp Pulse Resp BP Pulse Ox 97.5 F L 93 H 18 118/63 97 01/23/17 08:10 01/23/17 08:48 01/23/17 08:10 01/23/17 08:48 01/23/17 08:10 - Medications Medications: Current Medications Acetaminophen (Tylenol 325mg Tab) 650 mg PO Q4 PRN PRN Reason: Fever >100.4 F Last Admin: 12/26/16 19:40 Dose: 650 mg Acetaminophen (Tylenol 325mg Tab) 650 mg PO Q4 PRN PRN Reason: Pain, moderate (4-7) Last Admin: 01/20/17 11:28 Dose: 650 mg Apixaban (Eliquis) 5 mg PO BID [facility] PRN Reason: Protocol Last Admin: 01/23/17 08:45 Dose: 5 mg Aspirin (Ecotrin) 81 mg PO DAILY [facility] Last Admin: 01/23/17 08:45 Dose: 81 mg Atorvastatin Calcium (Lipitor) 40 mg PO DAILY [facility] Last Admin: 01/23/17 08:48 Dose: 40 mg Calcium Carbonate (Oscal) 500 mg PO BIDWM [facility] Last Admin: 01/23/17 08:52 Dose: 500 mg Collagenase (Santyl) 1 applic TOP DAILY [facility] Last Admin: 01/23/17 08:55 Dose: 1 applic Diphenhydramine HCl (Benadryl) 25 mg PO Q6 PRN PRN Reason: Itching / Pruritus Last Admin: 12/17/16 09:53 Dose: 25 mg Docusate Sodium (Colace) 100 mg PO BID [facility] Last Admin: 01/23/17 08:56 Dose: 100 mg Epoetin Tha (Procrit) 8,000 unit IV MWF [facility] Last Admin: 01/23/17 08:53 Dose: 8,000 unit Ergocalciferol (Drisdol 50,000 Intl Units Cap) 1 cap PO WED [facility] Last Admin: 01/22/17 12:54 Dose: 1 cap Fluconazole (Diflucan) 100 mg PO DAILY [facility] Last Admin: 01/23/17 08:44 Dose: 100 mg Gabapentin (Neurontin) 300 mg PO TID [facility] Last Admin: 01/23/17 08:50 Dose: 300 mg Guaifenesin/Dextromethorphan (Robitussin Dm) 10 ml PO Q4 PRN PRN Reason: Cough Last Admin: 01/13/17 10:51 Dose: 10 ml Hydrocortisone (Anusol-Hc) 1 applic [place] BID PRN PRN Reason: Inflammation Hydromorphone HCl (Dilaudid) 1 mg IVP Q4H PRN PRN Reason: Pain, severe (8-10) Last Admin: 01/23/17 09:58 Dose: 1 mg Sodium Chloride (Sodium Chloride 0.45%) 500 mls @ 10 mls/hr IV .Q24H [facility] Last Admin: 01/21/17 16:33 Dose: Not Given Ceftazidime/Avibactam 0.94 gm/ (Sodium Chloride) 100 mls @ 50 mls/hr IV QOTHERDAY@2200 [facility] Last Admin: 01/20/17 22:35 Dose: 50 mls/hr Daptomycin 650 mg/ Sodium (Chloride) 100 mls @ 100 mls/hr IVPB [facility] [place] Stop: 02/10/17 09:59 Last Admin: 01/22/17 12:52 Dose: 100 mls/hr Gentamicin Sulfate/Sodium Chloride (Gentamicin 60mg/50ml Ns) 60 mg in 50 mls @ 50 mls/hr IVPB [facility] [place] Last Admin: 01/22/17 08:38 Dose: 50 mls/hr Insulin Detemir (Levemir) 30 units SC [facility] Last Admin: 01/22/17 21:48 Dose: 30 units Insulin Human Lispro (Humalog) 14 units SC ACTID [facility] Last Admin: 01/23/17 08:47 Dose: 14 u Levalbuterol HCl (Xopenex) 0.63 mg INH RQ8 PRN PRN Reason: Shortness of Breath Metoprolol Tartrate (Lopressor) 25 mg PO Q12 [facility] Last Admin: 01/23/17 08:48 Dose: Not Given Nystatin (Nystop Topical Powder) 1 applic TOP BID [facility] Last Admin: 01/23/17 08:51 Dose: 1 applic Ondansetron HCl (Zofran Inj) 4 mg IVP Q6 PRN PRN Reason: Nausea/Vomiting Last Admin: 09/19/16 10:26 Dose: 4 mg Pantoprazole Sodium (Protonix Ec Tab) 40 mg PO DAILY [facility] Last Admin: 01/23/17 08:54 Dose: 40 mg Repaglinide (Prandin) 2 mg PO TIDAC [facility] Last Admin: 01/23/17 08:52 Dose: 2 mg Sennosides (Senokot Tab) 25.8 mg PO [facility] Last Admin: 01/22/17 21:46 Dose: 25.8 mg Sevelamer HCl (Renagel) 1,600 mg PO TIDWM [facility] Last Admin: 01/23/17 08:54 Dose: 1,600 mg Simethicone (Mylicon Chew Tab) 80 mg PO Q4H PRN PRN Reason: flatulence or "gassy feeling:" Last Admin: 01/07/17 16:57 Dose: 80 mg Topiramate (Topamax) 50 mg PO BID [facility] Last Admin: 01/23/17 08:55 Dose: 50 mg Vitamin B Complex/Vit C/Folic Acid (Nephro-Ajay) 1 tab PO DAILY [facility] Last Admin: 01/22/17 08:44 Dose: 1 tab - Labs Labs: 01/23/17 09:12 01/23/17 09:12 PT 15.3 Seconds (9.8-13.1) H 12/02/16 13:05 INR 1.4 (0.9-1.2) H 12/02/16 13:05 APTT 37.0 Seconds (25.6-37.1) 12/02/16 13:05 - Constitutional Appears: No Acute Distress - Head Exam Head Exam: NORMAL INSPECTION - Eye Exam Eye Exam: Normal appearance - ENT Exam ENT Exam: Mucous Membranes Moist - Neck Exam Neck Exam: Normal Inspection - Respiratory Exam Respiratory Exam: Clear to Ausculation Bilateral, NORMAL BREATHING PATTERN - Cardiovascular Exam Cardiovascular Exam: REGULAR RHYTHM, +S1, +S2 - GI/Abdominal Exam GI & Abdominal Exam: Soft - Extremities Exam Additional comments: Dressings intact. - Neurological Exam Neurological Exam: Alert, CN II-XII Intact, Oriented x3 - Psychiatric Exam Psychiatric exam: Normal Affect, Normal Mood - Skin Skin Exam: Dry, Normal Color, Warm Assessment and Plan (1) Status post below knee amputation of right lower extremity Assessment & Plan: Culture results are a bit confusing. One swab was from the BK surgical site. One swab was from the patella. But the laboratory listed them as thigh and leg - ?. Will continue same antibiotics - see Subjective. Microbiology 01/20/17 16:30 Blood-During Dialysis Blood Culture - Preliminary NO GROWTH AFTER 3 DAYS 01/20/17 16:30 Blood-During Dialysis Blood Culture - Preliminary NO GROWTH AFTER 3 DAYS 01/20/17 17:37 Thigh - Right Gram Stain - Final 01/20/17 17:37 Thigh - Right Wound Culture - Final No growth. 01/20/17 17:37 Leg - Right Gram Stain - Final 01/20/17 17:37 Leg - Right Wound Culture - Final Coagulase Neg Staphylococcus Status: Acute (2) ESRD (end stage renal disease) on dialysis Status: Chronic (3) DM type 2 (diabetes mellitus, type 2) Assessment & Plan: Being managed by Dr. Villalba - better control. Status: Chronic (4) Peripheral arterial occlusive disease Status: Chronic (5) Coagulopathy Status: Chronic
--- NOTE | 2017-01-23 11:00 | CP.PCM.PN ---
Subjective - Date & Time of Evaluation Date of Evaluation: 01/23/17 Time of Evaluation: 10:58 - Subjective Subjective: She was seen on hemodialysis now Vital signs stable Patient awake alert feeling good Hemodialysis was not done yesterday because of mechanical problem late in the evening. 4 weeks hemodialysis postponed until early this morning and as discussed with primary care physician antibiotics was given yesterday as noted and more to give today post hemodialysis including EPO today post hemo. In addition patient will have dialysis Friday instead of tomorrow for this week and for next week she will go back on normal scheduled MWF this has been conveyed to the patient and also to the dialysis nurse at the bedside to inform and to make that arrangement. Objective - Vital Signs/Intake and Output Vital Signs (last 24 hours): Temp Pulse Resp BP Pulse Ox 97.5 F L 93 H 18 118/63 97 01/23/17 08:10 01/23/17 08:48 01/23/17 08:10 01/23/17 08:48 01/23/17 08:10 - Medications Medications: Current Medications Acetaminophen (Tylenol 325mg Tab) 650 mg PO Q4 PRN PRN Reason: Fever >100.4 F Last Admin: 12/26/16 19:40 Dose: 650 mg Acetaminophen (Tylenol 325mg Tab) 650 mg PO Q4 PRN PRN Reason: Pain, moderate (4-7) Last Admin: 01/20/17 11:28 Dose: 650 mg Apixaban (Eliquis) 5 mg PO BID [facility] PRN Reason: Protocol Last Admin: 01/23/17 08:45 Dose: 5 mg Aspirin (Ecotrin) 81 mg PO DAILY [facility] Last Admin: 01/23/17 08:45 Dose: 81 mg Atorvastatin Calcium (Lipitor) 40 mg PO DAILY [facility] Last Admin: 01/23/17 08:48 Dose: 40 mg Calcium Carbonate (Oscal) 500 mg PO BIDWM [facility] Last Admin: 01/23/17 08:52 Dose: 500 mg Collagenase (Santyl) 1 applic TOP DAILY [facility] Last Admin: 01/23/17 08:55 Dose: 1 applic Diphenhydramine HCl (Benadryl) 25 mg PO Q6 PRN PRN Reason: Itching / Pruritus Last Admin: 12/17/16 09:53 Dose: 25 mg Docusate Sodium (Colace) 100 mg PO BID [facility] Last Admin: 01/23/17 08:56 Dose: 100 mg Epoetin Tha (Procrit) 8,000 unit [place] [facility] [place] Last Admin: 01/23/17 08:53 Dose: 8,000 unit Ergocalciferol (Drisdol 50,000 Intl Units Cap) 1 cap PO WED [facility] Last Admin: 01/22/17 12:54 Dose: 1 cap Fluconazole (Diflucan) 100 mg PO DAILY [facility] Last Admin: 01/23/17 08:44 Dose: 100 mg Gabapentin (Neurontin) 300 mg PO TID [facility] Last Admin: 01/23/17 08:50 Dose: 300 mg Guaifenesin/Dextromethorphan (Robitussin Dm) 10 ml PO Q4 PRN PRN Reason: Cough Last Admin: 01/13/17 10:51 Dose: 10 ml Hydrocortisone (Anusol-Hc) 1 applic [place] BID PRN PRN Reason: Inflammation Hydromorphone HCl (Dilaudid) 1 mg IVP Q4H PRN PRN Reason: Pain, severe (8-10) Last Admin: 01/23/17 09:58 Dose: 1 mg Sodium Chloride (Sodium Chloride 0.45%) 500 mls @ 10 mls/hr IV .Q24H [facility] Last Admin: 01/21/17 16:33 Dose: Not Given Ceftazidime/Avibactam 0.94 gm/ (Sodium Chloride) 100 mls @ 50 mls/hr IV QOTHERDAY@2200 [facility] Last Admin: 01/20/17 22:35 Dose: 50 mls/hr Daptomycin 650 mg/ Sodium (Chloride) 100 mls @ 100 mls/hr IVPB [facility] [place] Stop: 02/10/17 09:59 Last Admin: 01/22/17 12:52 Dose: 100 mls/hr Gentamicin Sulfate/Sodium Chloride (Gentamicin 60mg/50ml Ns) 60 mg in 50 mls @ 50 mls/hr [place]PB [facility] [place] Last Admin: 01/22/17 08:38 Dose: 50 mls/hr Insulin Detemir (Levemir) 30 units SC HS [facility] Last Admin: 01/22/17 21:48 Dose: 30 units Insulin Human Lispro (Humalog) 14 units SC ACTID [facility] Last Admin: 01/23/17 08:47 Dose: 14 u Levalbuterol HCl (Xopenex) 0.63 mg INH RQ8 PRN PRN Reason: Shortness of Breath Metoprolol Tartrate (Lopressor) 25 mg PO Q12 [facility] Last Admin: 01/23/17 08:48 Dose: Not Given Nystatin (Nystop Topical Powder) 1 applic TOP BID [facility] Last Admin: 01/23/17 08:51 Dose: 1 applic Ondansetron HCl (Zofran Inj) 4 mg IVP Q6 PRN PRN Reason: Nausea/Vomiting Last Admin: 09/19/16 10:26 Dose: 4 mg Pantoprazole Sodium (Protonix Ec Tab) 40 mg PO DAILY [facility] Last Admin: 01/23/17 08:54 Dose: 40 mg Repaglinide (Prandin) 2 mg PO TIDAC [facility] Last Admin: 01/23/17 08:52 Dose: 2 mg Sennosides (Senokot Tab) 25.8 mg PO HS [facility] Last Admin: 01/22/17 21:46 Dose: 25.8 mg Sevelamer HCl (Renagel) 1,600 mg PO TIDWM [facility] Last Admin: 01/23/17 08:54 Dose: 1,600 mg Simethicone (Mylicon Chew Tab) 80 mg PO Q4H PRN PRN Reason: flatulence or "gassy feeling:" Last Admin: 01/07/17 16:57 Dose: 80 mg Topiramate (Topamax) 50 mg PO BID [facility] Last Admin: 01/23/17 08:55 Dose: 50 mg Vitamin B Complex/Vit C/Folic Acid (Nephro-Ajay) 1 tab PO DAILY [facility] Last Admin: 01/22/17 08:44 Dose: 1 tab - Labs Labs: 01/23/17 09:12 01/23/17 09:12 PT 15.3 Seconds (9.8-13.1) H 12/02/16 13:05 INR 1.4 (0.9-1.2) H 12/02/16 13:05 APTT 37.0 Seconds (25.6-37.1) 12/02/16 13:05 - Constitutional Appears: No Acute Distress - ENT Exam ENT Exam: Mucous Membranes Moist - Respiratory Exam Respiratory Exam: absent: Chest Wall Tenderness - Cardiovascular Exam Cardiovascular Exam: absent: JVD, Rubs - GI/Abdominal Exam GI & Abdominal Exam: Normal Bowel Sounds - Extremities Exam Extremities Exam: absent: Calf Tenderness - Back Exam Back Exam: absent: CVA tenderness (L), CVA tenderness (R) - Neurological Exam Neurological Exam: Alert Assessment and Plan (1) ESRD (end stage renal disease) Assessment & Plan: She was seen on hemodialysis now Vital signs stable Patient awake alert feeling good Hemodialysis was not done yesterday because of mechanical problem late in the evening. 4 weeks hemodialysis postponed until early this morning and as discussed with primary care physician antibiotics was given yesterday as noted and more to give today post hemodialysis including EPO today post hemo. In addition patient will have dialysis Friday instead of tomorrow for this week and for next week she will go back on normal scheduled MWF this has been conveyed to the patient and also to the dialysis nurse at the bedside to inform and to make that arrangement. Status: Chronic (2) Cellulitis of leg Status: Chronic
[2017-01-23] MEDS: Insulin Detemir 100 Units/ml Inj SC SCH (22:03)
--- NOTE | 2017-01-24 01:25 | PN ---
ENDO FOLLOWUP NOTE DATE: This is a 46-year-old female with recent uncontrolled type 2 insulin-requiring diabetes, now being followed closely for metabolic management. Her glycemic levels are fluctuating but improved at this time and the latest glucose levels have ranged from 166-236 mg/dl. The latest chemistry showed a BUN of 57, sodium 137, potassium 4.7, chloride 100, CO2 20, glucose 137 and creatinine 7.0. So at this time, we will continue the modified basal and bolus insulin regimen to allow for dose equilibration and keep her on the Levemir given as 30 units subcu at bedtime daily as ordered. We will continue the Humalog given as 14 units subcu t.i.d. before meals as ordered. We will continue the serial chemistries and supplement accordingly needed. We will follow. Irene Ambrose MD
[2017-01-24] MEDS: Insulin Lispro (humaLOG) 100 Units/ml Inj SC SCH ×3 (09:19→16:51)
[2017-01-24] MEDS: Multivitamin Vitamin B Complex (Nephro-Vite) Tab PO SCH (09:20)
[2017-01-24] MEDS: Epoetin Alfa 20000 UNIT/ML Inj IV SCH (09:21)
[2017-01-24] MEDS: Pantoprazole 40 mg EC Tab PO SCH (09:22)
[2017-01-24] MEDS: Santyl Collagenase OINTMENT TOP SCH (09:22)
--- NOTE | 2017-01-24 15:09 | CP.PCM.PN ---
Subjective - Date & Time of Evaluation Date of Evaluation: 01/24/17 Time of Evaluation: 15:08 - Subjective Subjective: Patient awake consciousness No new event Blood pressure noted to be low to be rechecked again. Patient scheduled for hemodialysis for tomorrow for this week and for next week she will be back on [facility] Monitor blood pressure and vital sign later on Clinically she is stable Objective - Vital Signs/Intake and Output Vital Signs (last 24 hours): Temp Pulse Resp BP Pulse Ox 97.6 F 86 18 88/52 L 95 01/24/17 08:25 01/24/17 08:25 01/24/17 08:25 01/24/17 13:07 01/24/17 08:25 - Medications Medications: Current Medications Acetaminophen (Tylenol 325mg Tab) 650 mg PO Q4 PRN PRN Reason: Fever >100.4 F Last Admin: 12/26/16 19:40 Dose: 650 mg Acetaminophen (Tylenol 325mg Tab) 650 mg PO Q4 PRN PRN Reason: Pain, moderate (4-7) Last Admin: 01/20/17 11:28 Dose: 650 mg Apixaban (Eliquis) 5 mg PO BID [facility] PRN Reason: Protocol Last Admin: 01/24/17 09:17 Dose: 5 mg Aspirin (Ecotrin) 81 mg PO DAILY [facility] Last Admin: 01/24/17 09:16 Dose: 81 mg Atorvastatin Calcium (Lipitor) 40 mg PO DAILY [facility] Last Admin: 01/24/17 09:19 Dose: 40 mg Calcium Carbonate (Oscal) 500 mg PO BIDWM [facility] Last Admin: 01/24/17 09:21 Dose: 500 mg Collagenase (Santyl) 1 applic TOP DAILY [facility] Last Admin: 01/24/17 09:22 Dose: 1 applic Diphenhydramine HCl (Benadryl) 25 mg PO Q6 PRN PRN Reason: Itching / Pruritus Last Admin: 12/17/16 09:53 Dose: 25 mg Docusate Sodium (Colace) 100 mg PO BID [facility] Last Admin: 01/24/17 09:16 Dose: 100 mg Epoetin Tha (Procrit) 8,000 unit IV MWF [facility] Last Admin: 01/24/17 09:21 Dose: Not Given Ergocalciferol (Drisdol 50,000 Intl Units Cap) 1 cap PO WED [facility] Last Admin: 01/22/17 12:54 Dose: 1 cap Fluconazole (Diflucan) 100 mg PO DAILY [facility] Last Admin: 01/24/17 09:16 Dose: 100 mg Gabapentin (Neurontin) 300 mg PO TID [facility] Last Admin: 01/24/17 13:08 Dose: 300 mg Guaifenesin/Dextromethorphan (Robitussin Dm) 10 ml PO Q4 PRN PRN Reason: Cough Last Admin: 01/13/17 10:51 Dose: 10 ml Hydrocortisone (Anusol-Hc) 1 applic [place] BID PRN PRN Reason: Inflammation Hydromorphone HCl (Dilaudid) 1 mg IVP Q4H PRN PRN Reason: Pain, severe (8-10) Last Admin: 01/24/17 05:33 Dose: 1 mg Sodium Chloride (Sodium Chloride 0.45%) 500 mls @ 10 mls/hr IV .Q24H [facility] Last Admin: 01/23/17 18:01 Dose: 10 mls/hr Ceftazidime/Avibactam 0.94 gm/ (Sodium Chloride) 100 mls @ 50 mls/hr IV QOTHERDAY@2200 [facility] Last Admin: 01/23/17 22:04 Dose: 50 mls/hr Gentamicin Sulfate/Sodium Chloride (Gentamicin 60mg/50ml Ns) 60 mg in 50 mls @ 50 mls/hr IVPB [facility] Stop: 01/25/17 15:39 Daptomycin 650 mg/ Sodium (Chloride) 100 mls @ 100 mls/hr IVPB [facility] Stop: 01/25/17 12:59 Insulin Detemir (Levemir) 30 units SC HS [facility] Last Admin: 01/23/17 22:03 Dose: 30 units Insulin Human Lispro (Humalog) 14 units SC ACTID [facility] Last Admin: 01/24/17 13:07 Dose: 14 u Levalbuterol HCl (Xopenex) 0.63 mg INH RQ8 PRN PRN Reason: Shortness of Breath Metoprolol Tartrate (Lopressor) 25 mg PO Q12 [facility] Last Admin: 01/24/17 13:07 Dose: Not Given Nystatin (Nystop Topical Powder) 1 applic TOP BID [facility] Last Admin: 01/24/17 09:21 Dose: 1 applic Ondansetron HCl (Zofran Inj) 4 mg IVP Q6 PRN PRN Reason: Nausea/Vomiting Last Admin: 09/19/16 10:26 Dose: 4 mg Pantoprazole Sodium (Protonix Ec Tab) 40 mg PO DAILY [facility] Last Admin: 01/24/17 09:22 Dose: 40 mg Repaglinide (Prandin) 2 mg PO TIDAC [facility] Last Admin: 01/24/17 13:08 Dose: 2 mg Sennosides (Senokot Tab) 25.8 mg PO HS [facility] Last Admin: 01/23/17 21:50 Dose: 25.8 mg Sevelamer HCl (Renagel) 1,600 mg PO TIDWM [facility] Last Admin: 01/24/17 13:08 Dose: 1,600 mg Simethicone (Mylicon Chew Tab) 80 mg PO Q4H PRN PRN Reason: flatulence or "gassy feeling:" Last Admin: 01/07/17 16:57 Dose: 80 mg Topiramate (Topamax) 50 mg PO BID [facility] Last Admin: 01/24/17 09:22 Dose: 50 mg Vitamin B Complex/Vit C/Folic Acid (Nephro-Ajay) 1 tab PO DAILY [facility] Last Admin: 01/24/17 09:20 Dose: 1 tab - Labs Labs: 01/23/17 09:12 01/23/17 09:12 PT 15.3 Seconds (9.8-13.1) H 12/02/16 13:05 INR 1.4 (0.9-1.2) H 12/02/16 13:05 APTT 37.0 Seconds (25.6-37.1) 12/02/16 13:05 Assessment and Plan (1) ESRD (end stage renal disease) Status: Chronic (2) Cellulitis of leg Status: Chronic
--- NOTE | 2017-01-24 15:15 | CP.PCM.PN ---
Subjective - Date & Time of Evaluation Date of Evaluation: 01/24/17 Time of Evaluation: 15:09 - Subjective Subjective: Blood pressure was low earlier - not exactly sure because readings are hard to get and patient was asymptomatic. She was given 8 oz of fluid. Now by electronic device (136/82) and by doppler at wrist blood (systolic 130mm), the blood pressure is acceptable. The pulse is 89 and regular. Patient had hemodialysis yesterday. Because of the change in days due to dialysis machine failure, she received dialysis off schedule and will be re- dialyzed tomorrow (Thursday 01/25). So Ceftazidime/avibactim will be given on schedule (q 48 hrs) and gentamicin (60mg) and daptomycin (650mg) will be given IV tomorrow AFTER hemodialysis. On 01/26 I will reorder the antibiotics for next week on a [facility] post-dialysis schedule. No cough, fevers, pains, or dyspnea. With the help of physical therapy, patient just transfered from bed to wheelchair to bed to wheelchair with moderate assistance. Glucoses running around 150 on current regimen. Objective - Vital Signs/Intake and Output Vital Signs (last 24 hours): Temp Pulse Resp BP Pulse Ox 97.6 F 86 18 88/52 L 95 01/24/17 08:25 01/24/17 08:25 01/24/17 08:25 01/24/17 13:07 01/24/17 08:25 See subjective for latest readings on BP and pulse. - Medications Medications: Current Medications Acetaminophen (Tylenol 325mg Tab) 650 mg PO Q4 PRN PRN Reason: Fever >100.4 F Last Admin: 12/26/16 19:40 Dose: 650 mg Acetaminophen (Tylenol 325mg Tab) 650 mg PO Q4 PRN PRN Reason: Pain, moderate (4-7) Last Admin: 01/20/17 11:28 Dose: 650 mg Apixaban (Eliquis) 5 mg PO BID [facility] PRN Reason: Protocol Last Admin: 01/24/17 09:17 Dose: 5 mg Aspirin (Ecotrin) 81 mg PO DAILY [facility] Last Admin: 01/24/17 09:16 Dose: 81 mg Atorvastatin Calcium (Lipitor) 40 mg PO DAILY [facility] Last Admin: 01/24/17 09:19 Dose: 40 mg Calcium Carbonate (Oscal) 500 mg PO BIDWM [facility] Last Admin: 01/24/17 09:21 Dose: 500 mg Collagenase (Santyl) 1 applic TOP DAILY [facility] Last Admin: 01/24/17 09:22 Dose: 1 applic Diphenhydramine HCl (Benadryl) 25 mg PO Q6 PRN PRN Reason: Itching / Pruritus Last Admin: 12/17/16 09:53 Dose: 25 mg Docusate Sodium (Colace) 100 mg PO BID [facility] Last Admin: 01/24/17 09:16 Dose: 100 mg Epoetin Tha (Procrit) 8,000 unit IV MWF [facility] Last Admin: 01/24/17 09:21 Dose: Not Given Ergocalciferol (Drisdol 50,000 Intl Units Cap) 1 cap PO WED [facility] Last Admin: 01/22/17 12:54 Dose: 1 cap Fluconazole (Diflucan) 100 mg PO DAILY [facility] Last Admin: 01/24/17 09:16 Dose: 100 mg Gabapentin (Neurontin) 300 mg PO TID [facility] Last Admin: 01/24/17 13:08 Dose: 300 mg Guaifenesin/Dextromethorphan (Robitussin Dm) 10 ml PO Q4 PRN PRN Reason: Cough Last Admin: 01/13/17 10:51 Dose: 10 ml Hydrocortisone (Anusol-Hc) 1 applic [place] BID PRN PRN Reason: Inflammation Hydromorphone HCl (Dilaudid) 1 mg IVP Q4H PRN PRN Reason: Pain, severe (8-10) Last Admin: 01/24/17 05:33 Dose: 1 mg Sodium Chloride (Sodium Chloride 0.45%) 500 mls @ 10 mls/hr IV .Q24H [facility] Last Admin: 01/23/17 18:01 Dose: 10 mls/hr Ceftazidime/Avibactam 0.94 gm/ (Sodium Chloride) 100 mls @ 50 mls/hr IV QOTHERDAY@2200 [facility] Last Admin: 01/23/17 22:04 Dose: 50 mls/hr Gentamicin Sulfate/Sodium Chloride (Gentamicin 60mg/50ml Ns) 60 mg in 50 mls @ 50 mls/hr IVPB ONCE ONE Stop: 01/25/17 15:39 Daptomycin 650 mg/ Sodium (Chloride) 100 mls @ 100 mls/hr IVPB ONCE ONE Stop: 01/25/17 12:59 Insulin Detemir (Levemir) 30 units SC HS [facility] Last Admin: 01/23/17 22:03 Dose: 30 units Insulin Human Lispro (Humalog) 14 units SC ACTID [facility] Last Admin: 01/24/17 13:07 Dose: 14 u Levalbuterol HCl (Xopenex) 0.63 mg INH RQ8 PRN PRN Reason: Shortness of Breath Metoprolol Tartrate (Lopressor) 25 mg PO Q12 [facility] Last Admin: 01/24/17 13:07 Dose: Not Given Nystatin (Nystop Topical Powder) 1 applic TOP BID [facility] Last Admin: 01/24/17 09:21 Dose: 1 applic Ondansetron HCl (Zofran Inj) 4 mg IVP Q6 PRN PRN Reason: Nausea/Vomiting Last Admin: 09/19/16 10:26 Dose: 4 mg Pantoprazole Sodium (Protonix Ec Tab) 40 mg PO DAILY [facility] Last Admin: 01/24/17 09:22 Dose: 40 mg Repaglinide (Prandin) 2 mg PO TIDAC [facility] Last Admin: 01/24/17 13:08 Dose: 2 mg Sennosides (Senokot Tab) 25.8 mg PO HS [facility] Last Admin: 01/23/17 21:50 Dose: 25.8 mg Sevelamer HCl (Renagel) 1,600 mg PO TIDWM [facility] Last Admin: 01/24/17 13:08 Dose: 1,600 mg Simethicone (Mylicon Chew Tab) 80 mg PO Q4H PRN PRN Reason: flatulence or "gassy feeling:" Last Admin: 01/07/17 16:57 Dose: 80 mg Topiramate (Topamax) 50 mg PO BID [facility] Last Admin: 01/24/17 09:22 Dose: 50 mg Vitamin B Complex/Vit C/Folic Acid (Nephro-Ajay) 1 tab PO DAILY [facility] Last Admin: 01/24/17 09:20 Dose: 1 tab - Labs Labs: 01/23/17 09:12 01/23/17 09:12 PT 15.3 Seconds (9.8-13.1) H 12/02/16 13:05 INR 1.4 (0.9-1.2) H 12/02/16 13:05 APTT 37.0 Seconds (25.6-37.1) 12/02/16 13:05 - Constitutional Appears: No Acute Distress - Head Exam Head Exam: NORMAL INSPECTION - Eye Exam Eye Exam: Normal appearance - ENT Exam ENT Exam: Mucous Membranes Moist - Neck Exam Neck Exam: Normal Inspection - Respiratory Exam Respiratory Exam: Clear to Ausculation Bilateral, NORMAL BREATHING PATTERN - Cardiovascular Exam Cardiovascular Exam: REGULAR RHYTHM, +S1, +S2 - GI/Abdominal Exam GI & Abdominal Exam: Soft - Extremities Exam Additional comments: Wound vac and ressings intact RLE. - Back Exam Back Exam: NORMAL INSPECTION - Neurological Exam Neurological Exam: Alert, CN II-XII Intact, Oriented x3 - Psychiatric Exam Psychiatric exam: Normal Affect, Normal Mood - Skin Skin Exam: Dry, Normal Color, Warm Assessment and Plan (1) Status post below knee amputation of right lower extremity Assessment & Plan: Making good progress in both healing and physical therapy. Status: Acute (2) ESRD (end stage renal disease) on dialysis Status: Chronic (3) DM type 2 (diabetes mellitus, type 2) Assessment & Plan: controlled. Status: Chronic (4) Peripheral arterial occlusive disease Status: Chronic (5) Coagulopathy Status: Chronic
[2017-01-24] MEDS ORDERED: Chlorhexidine Gluconate 1 APPL/PKT TP ONE (16:28)
[2017-01-24] MEDS: Insulin Detemir 100 Units/ml Inj SC SCH (22:06)
[2017-01-25] MEDS: HYDROmorphone 0.5 mg/0.5 ml ISec IVP PRN ×5 (00:03→21:55)
--- NOTE | 2017-01-25 00:25 | CP.PCM.PN ---
Subjective - Date & Time of Evaluation Date of Evaluation: 01/24/17 Time of Evaluation: 21:00 - Subjective Subjective: Her dialysis is delayed this week to and Friday due to Hemodialysis Machine difficulties. BP and Pulse are fluctuating up and down. They are better adjusted now. Her Culture Sensitivity is pending. She is doing well on her Antibiotics and her Gentamycin level is high. She is awake, alert, oriented, eating well. Objective - Vital Signs/Intake and Output Vital Signs (last 24 hours): Temp Pulse Resp BP Pulse Ox 97.9 F 81 18 124/78 95 01/24/17 16:18 01/24/17 22:04 01/24/17 16:18 01/24/17 22:04 01/24/17 16:18 - Medications Medications: Current Medications Acetaminophen (Tylenol 325mg Tab) 650 mg PO Q4 PRN PRN Reason: Fever >100.4 F Last Admin: 12/26/16 19:40 Dose: 650 mg Acetaminophen (Tylenol 325mg Tab) 650 mg PO Q4 PRN PRN Reason: Pain, moderate (4-7) Last Admin: 01/20/17 11:28 Dose: 650 mg Apixaban (Eliquis) 5 mg PO BID [facility] PRN Reason: Protocol Last Admin: 01/24/17 16:50 Dose: 5 mg Aspirin (Ecotrin) 81 mg PO DAILY [facility] Last Admin: 01/24/17 09:16 Dose: 81 mg Atorvastatin Calcium (Lipitor) 40 mg PO DAILY [facility] Last Admin: 01/24/17 09:19 Dose: 40 mg Calcium Carbonate (Oscal) 500 mg PO BIDWM [facility] Last Admin: 01/24/17 16:50 Dose: 500 mg Collagenase (Santyl) 1 applic TOP DAILY [facility] Last Admin: 01/24/17 09:22 Dose: 1 applic Diphenhydramine HCl (Benadryl) 25 mg PO Q6 PRN PRN Reason: Itching / Pruritus Last Admin: 12/17/16 09:53 Dose: 25 mg Docusate Sodium (Colace) 100 mg PO BID [facility] Last Admin: 01/24/17 16:49 Dose: 100 mg Epoetin Tha (Procrit) 8,000 unit IV MWF [facility] Last Admin: 01/24/17 09:21 Dose: Not Given Ergocalciferol (Drisdol 50,000 Intl Units Cap) 1 cap PO WED [facility] Last Admin: 01/22/17 12:54 Dose: 1 cap Fluconazole (Diflucan) 100 mg PO DAILY [facility] Last Admin: 01/24/17 09:16 Dose: 100 mg Gabapentin (Neurontin) 300 mg PO TID [facility] Last Admin: 01/24/17 16:49 Dose: 300 mg Guaifenesin/Dextromethorphan (Robitussin Dm) 10 ml PO Q4 PRN PRN Reason: Cough Last Admin: 01/13/17 10:51 Dose: 10 ml Hydrocortisone (Anusol-Hc) 1 applic [place] BID PRN PRN Reason: Inflammation Hydromorphone HCl (Dilaudid) 1 mg IVP Q4H PRN PRN Reason: Pain, severe (8-10) Last Admin: 01/25/17 00:03 Dose: 1 mg Sodium Chloride (Sodium Chloride 0.45%) 500 mls @ 10 mls/hr IV .Q24H [facility] Last Admin: 01/24/17 22:07 Dose: Not Given Ceftazidime/Avibactam 0.94 gm/ (Sodium Chloride) 100 mls @ 50 mls/hr IV QOTHERDAY@2200 [facility] Last Admin: 01/24/17 22:00 Dose: Not Given Gentamicin Sulfate/Sodium Chloride (Gentamicin 60mg/50ml Ns) 60 mg in 50 mls @ 50 mls/hr IVPB ONCE ONE Stop: 01/25/17 15:39 Daptomycin 650 mg/ Sodium (Chloride) 100 mls @ 100 mls/hr IVPB ONCE ONE Stop: 01/25/17 12:59 Influenza Virus Vaccine (Afluria (Pf)(18yr & Older)) 0.5 ml IM .ONCE ONE Stop: 01/25/17 09:01 Insulin Detemir (Levemir) 30 units SC HS [facility] Last Admin: 01/24/17 22:06 Dose: 30 units Insulin Human Lispro (Humalog) 14 units SC ACTID [facility] Last Admin: 01/24/17 16:51 Dose: 14 u Levalbuterol HCl (Xopenex) 0.63 mg INH RQ8 PRN PRN Reason: Shortness of Breath Metoprolol Tartrate (Lopressor) 25 mg PO Q12 [facility] Last Admin: 01/24/17 22:04 Dose: 25 mg Nystatin (Nystop Topical Powder) 1 applic TOP BID [facility] Last Admin: 01/24/17 16:50 Dose: 1 applic Ondansetron HCl (Zofran Inj) 4 mg IVP Q6 PRN PRN Reason: Nausea/Vomiting Last Admin: 09/19/16 10:26 Dose: 4 mg Pantoprazole Sodium (Protonix Ec Tab) 40 mg PO DAILY [facility] Last Admin: 01/24/17 09:22 Dose: 40 mg Repaglinide (Prandin) 2 mg PO TIDAC [facility] Last Admin: 01/24/17 16:50 Dose: 2 mg Sennosides (Senokot Tab) 25.8 mg PO HS [facility] Last Admin: 01/24/17 22:04 Dose: 25.8 mg Sevelamer HCl (Renagel) 1,600 mg PO TIDWM [facility] Last Admin: 01/24/17 16:50 Dose: 1,600 mg Simethicone (Mylicon Chew Tab) 80 mg PO Q4H PRN PRN Reason: flatulence or "gassy feeling:" Last Admin: 01/07/17 16:57 Dose: 80 mg Topiramate (Topamax) 50 mg PO BID [facility] Last Admin: 01/24/17 09:22 Dose: 50 mg Vitamin B Complex/Vit C/Folic Acid (Nephro-Ajay) 1 tab PO DAILY [facility] Last Admin: 01/24/17 09:20 Dose: 1 tab - Labs Labs: 01/23/17 09:12 01/23/17 09:12 PT 15.3 Seconds (9.8-13.1) H 12/02/16 13:05 INR 1.4 (0.9-1.2) H 12/02/16 13:05 APTT 37.0 Seconds (25.6-37.1) 12/02/16 13:05 Assessment and Plan (1) Diabetes Status: Chronic (2) ESRD (end stage renal disease) Status: Chronic (3) Cellulitis of leg Status: Chronic (4) Hyperlipidemia Status: Chronic (5) Back pain Status: Acute (6) Bacteremia due to Gram-negative bacteria Status: Acute (7) PVD (peripheral vascular disease) Status: Chronic (8) Osteomyelitis of right leg Status: Acute
--- NOTE | 2017-01-25 03:04 | PN ---
ENDO FOLLOWUP NOTE DATE: SUBJECTIVE: This is a 46-year-old female with recent uncontrolled type 2 insulin-requiring diabetes, now being followed closely for metabolic management. She continues to have ongoing IV antibiotics for management of right below-knee amputation, osteomyelitis and with improved glycemic profile after the initiation of the basal and bolus insulin regimen as given. Her latest chemistries showed a BUN of 57, sodium 137, potassium 4.7, chloride 100, CO2 is 20, glucose 137 and creatinine 7.0. So at this time, we will continue the same basal and bolus insulin regimen as given with Levemir given as 30 units subcu at bedtime daily as given. We will continue the Humalog given as 14 units subcu t.i.d. before meals as ordered. We will titrate incremental as indicated to optimize metabolic control. We will follow and advise accordingly. Irene Ambrose MD
[2017-01-25] MEDS: Multivitamin Vitamin B Complex (Nephro-Vite) Tab PO SCH (08:56)
[2017-01-25] MEDS: Santyl Collagenase OINTMENT TOP SCH (08:56)
[2017-01-25] MEDS ORDERED: Influenza Vaccine 18yr & older 0.5 ML/45 MCG SYR IM ONE (09:00)
[2017-01-25] MEDS: Insulin Lispro (humaLOG) 100 Units/ml Inj SC SCH ×3 (09:04→17:06)
[2017-01-25] MEDS: Pantoprazole 40 mg EC Tab PO SCH (09:10)
[2017-01-25] MEDS ORDERED: Gentamicin 60mg/50ml NS 60 MG/50 ML BAG IVPB ONE (14:40)
--- NOTE | 2017-01-25 16:43 | CP.PCM.PN ---
Subjective - Date & Time of Evaluation Date of Evaluation: 01/25/17 Time of Evaluation: 16:40 - Subjective Subjective: Patient had hemodialysis earlier today. Blood pressures appear low, but if one uses a doppler to listen for the cut-off, the blood pressure is acceptable - 119 /51 post hemodialysis. Glucoses are acceptable also - 157 earlier. No fevers, cough, dyspnea, or pains. I will be ordering antibiotics to resume on Saturday 01/27 following hemodialysis. Wound care to right patella was done by nurse today. Objective - Vital Signs/Intake and Output Vital Signs (last 24 hours): Temp Pulse Resp BP Pulse Ox 98.3 F 102 H 18 85/58 L 95 01/25/17 16:18 01/25/17 16:18 01/25/17 16:18 01/25/17 16:18 01/25/17 16:18 - Medications Medications: Current Medications Acetaminophen (Tylenol 325mg Tab) 650 mg PO Q4 PRN PRN Reason: Fever >100.4 F Last Admin: 12/26/16 19:40 Dose: 650 mg Acetaminophen (Tylenol 325mg Tab) 650 mg PO Q4 PRN PRN Reason: Pain, moderate (4-7) Last Admin: 01/20/17 11:28 Dose: 650 mg Apixaban (Eliquis) 5 mg PO BID [facility] PRN Reason: Protocol Last Admin: 01/25/17 09:04 Dose: 5 mg Aspirin (Ecotrin) 81 mg PO DAILY [facility] Last Admin: 01/25/17 09:03 Dose: 81 mg Atorvastatin Calcium (Lipitor) 40 mg PO DAILY [facility] Last Admin: 01/25/17 09:13 Dose: 40 mg Calcium Carbonate (Oscal) 500 mg PO BIDWM [facility] Last Admin: 01/25/17 08:56 Dose: 500 mg Collagenase (Santyl) 1 applic TOP DAILY [facility] Last Admin: 01/25/17 08:56 Dose: 1 applic Diphenhydramine HCl (Benadryl) 25 mg PO Q6 PRN PRN Reason: Itching / Pruritus Last Admin: 12/17/16 09:53 Dose: 25 mg Docusate Sodium (Colace) 100 mg PO BID [facility] Last Admin: 01/25/17 09:02 Dose: 100 mg Epoetin Tha (Procrit) 8,000 unit IV MWF [facility] Last Admin: 01/24/17 09:21 Dose: Not Given Ergocalciferol (Drisdol 50,000 Intl Units Cap) 1 cap PO WED [facility] Last Admin: 01/22/17 12:54 Dose: 1 cap Fluconazole (Diflucan) 100 mg PO DAILY [facility] Last Admin: 01/25/17 09:03 Dose: 100 mg Gabapentin (Neurontin) 300 mg PO TID [facility] Last Admin: 01/25/17 12:58 Dose: 300 mg Guaifenesin/Dextromethorphan (Robitussin Dm) 10 ml PO Q4 PRN PRN Reason: Cough Last Admin: 01/13/17 10:51 Dose: 10 ml Hydrocortisone (Anusol-Hc) 1 applic ID BID PRN PRN Reason: Inflammation Hydromorphone HCl (Dilaudid) 1 mg IVP Q4H PRN PRN Reason: Pain, severe (8-10) Last Admin: 01/25/17 15:47 Dose: 1 mg Sodium Chloride (Sodium Chloride 0.45%) 500 mls @ 10 mls/hr IV .Q24H [facility] Last Admin: 01/24/17 22:07 Dose: Not Given Ceftazidime/Avibactam 0.94 gm/ (Sodium Chloride) 100 mls @ 50 mls/hr IV QOTHERDAY@2200 [facility] Last Admin: 01/24/17 22:00 Dose: Not Given Insulin Detemir (Levemir) 30 units SC HS [facility] Last Admin: 01/24/17 22:06 Dose: 30 units Insulin Human Lispro (Humalog) 14 units SC ACTID [facility] Last Admin: 01/25/17 12:56 Dose: 14 u Levalbuterol HCl (Xopenex) 0.63 mg INH RQ8 PRN PRN Reason: Shortness of Breath Metoprolol Tartrate (Lopressor) 25 mg PO Q12 [facility] Last Admin: 01/25/17 09:12 Dose: Not Given Nystatin (Nystop Topical Powder) 1 applic TOP BID [facility] Last Admin: 01/25/17 08:57 Dose: 1 applic Ondansetron HCl (Zofran Inj) 4 mg IVP Q6 PRN PRN Reason: Nausea/Vomiting Last Admin: 09/19/16 10:26 Dose: 4 mg Pantoprazole Sodium (Protonix Ec Tab) 40 mg PO DAILY [facility] Last Admin: 01/25/17 09:10 Dose: 40 mg Repaglinide (Prandin) 2 mg PO TIDAC [facility] Last Admin: 01/25/17 12:58 Dose: 2 mg Sennosides (Senokot Tab) 25.8 mg PO HS [facility] Last Admin: 01/24/17 22:04 Dose: 25.8 mg Sevelamer HCl (Renagel) 1,600 mg PO TIDWM [facility] Last Admin: 01/25/17 12:58 Dose: 1,600 mg Simethicone (Mylicon Chew Tab) 80 mg PO Q4H PRN PRN Reason: flatulence or "gassy feeling:" Last Admin: 01/07/17 16:57 Dose: 80 mg Topiramate (Topamax) 50 mg PO BID [facility] Last Admin: 01/25/17 08:56 Dose: 50 mg Vitamin B Complex/Vit C/Folic Acid (Nephro-Ajay) 1 tab PO DAILY [facility] Last Admin: 01/25/17 08:56 Dose: 1 tab - Labs Labs: 01/23/17 09:12 01/23/17 09:12 PT 15.3 Seconds (9.8-13.1) H 12/02/16 13:05 INR 1.4 (0.9-1.2) H 12/02/16 13:05 APTT 37.0 Seconds (25.6-37.1) 12/02/16 13:05 - Constitutional Appears: No Acute Distress - Head Exam Head Exam: NORMAL INSPECTION - Eye Exam Eye Exam: Normal appearance - ENT Exam ENT Exam: Mucous Membranes Moist - Neck Exam Neck Exam: Normal Inspection - Respiratory Exam Respiratory Exam: Clear to Ausculation Bilateral, NORMAL BREATHING PATTERN - Extremities Exam Additional comments: Wound vac and dressings intact RLE. PICC line left femoral vein intact. - Back Exam Back Exam: CVA tenderness (L) - Neurological Exam Neurological Exam: Alert, CN II-XII Intact, Oriented x3 - Psychiatric Exam Psychiatric exam: Normal Affect, Normal Mood - Skin Skin Exam: Dry, Normal Color, Warm Assessment and Plan (1) Status post below knee amputation of right lower extremity Status: Acute (2) ESRD (end stage renal disease) on dialysis Status: Chronic (3) DM type 2 (diabetes mellitus, type 2) Status: Chronic (4) Peripheral arterial occlusive disease Status: Chronic (5) Coagulopathy Status: Chronic - Assessment and Plan (Free Text) Assessment: CLINICALLY STABLE - CONTINUE SAME RX AND TX.
[2017-01-25] MEDS ORDERED: Chlorhexidine Gluconate 1 APPL/PKT TP ONE (19:07)
[2017-01-25] MEDS: Insulin Detemir 100 Units/ml Inj SC SCH (21:43)
--- NOTE | 2017-01-25 23:09 | CP.PCM.PN ---
Subjective - Date & Time of Evaluation Date of Evaluation: 01/25/17 Time of Evaluation: 15:00 - Subjective Subjective: no events overnight Objective - Vital Signs/Intake and Output Vital Signs (last 24 hours): Temp Pulse Resp BP Pulse Ox 98.3 F 59 L 18 110/52 L 95 01/25/17 16:18 01/25/17 21:51 01/25/17 16:18 01/25/17 19:00 01/25/17 16:18 - Medications Medications: Current Medications Acetaminophen (Tylenol 325mg Tab) 650 mg PO Q4 PRN PRN Reason: Fever >100.4 F Last Admin: 12/26/16 19:40 Dose: 650 mg Acetaminophen (Tylenol 325mg Tab) 650 mg PO Q4 PRN PRN Reason: Pain, moderate (4-7) Last Admin: 01/20/17 11:28 Dose: 650 mg Apixaban (Eliquis) 5 mg PO BID [facility] PRN Reason: Protocol Last Admin: 01/25/17 17:05 Dose: 5 mg Aspirin (Ecotrin) 81 mg PO DAILY [facility] Last Admin: 01/25/17 09:03 Dose: 81 mg Atorvastatin Calcium (Lipitor) 40 mg PO DAILY [facility] Last Admin: 01/25/17 09:13 Dose: 40 mg Calcium Carbonate (Oscal) 500 mg PO BIDWM [facility] Last Admin: 01/25/17 17:07 Dose: 500 mg Collagenase (Santyl) 1 applic TOP DAILY [facility] Last Admin: 01/25/17 08:56 Dose: 1 applic Diphenhydramine HCl (Benadryl) 25 mg PO Q6 PRN PRN Reason: Itching / Pruritus Last Admin: 12/17/16 09:53 Dose: 25 mg Docusate Sodium (Colace) 100 mg PO BID [facility] Last Admin: 01/25/17 17:05 Dose: 100 mg Epoetin Tha (Procrit) 8,000 unit IV MWF [facility] Last Admin: 01/24/17 09:21 Dose: Not Given Ergocalciferol (Drisdol 50,000 Intl Units Cap) 1 cap PO WED [facility] Last Admin: 01/22/17 12:54 Dose: 1 cap Fluconazole (Diflucan) 100 mg PO DAILY [facility] Last Admin: 01/25/17 09:03 Dose: 100 mg Gabapentin (Neurontin) 300 mg PO TID [facility] Last Admin: 01/25/17 17:05 Dose: 300 mg Guaifenesin/Dextromethorphan (Robitussin Dm) 10 ml PO Q4 PRN PRN Reason: Cough Last Admin: 01/13/17 10:51 Dose: 10 ml Hydrocortisone (Anusol-Hc) 1 applic [place] BID PRN PRN Reason: Inflammation Hydromorphone HCl (Dilaudid) 1 mg IVP Q4H PRN PRN Reason: Pain, severe (8-10) Last Admin: 01/25/17 21:55 Dose: 1 mg Sodium Chloride (Sodium Chloride 0.45%) 500 mls @ 10 mls/hr IV .Q24H [facility] Last Admin: 01/25/17 17:07 Dose: Not Given Ceftazidime/Avibactam 0.94 gm/ (Sodium Chloride) 100 mls @ 50 mls/hr IV QOTHERDAY@2200 [facility] Last Admin: 01/24/17 22:00 Dose: Not Given Insulin Detemir (Levemir) 30 units SC HS [facility] Last Admin: 01/25/17 21:43 Dose: 30 units Insulin Human Lispro (Humalog) 14 units SC ACTID [facility] Last Admin: 01/25/17 17:06 Dose: 14 u Levalbuterol HCl (Xopenex) 0.63 mg INH RQ8 PRN PRN Reason: Shortness of Breath Metoprolol Tartrate (Lopressor) 25 mg PO Q12 [facility] Last Admin: 01/25/17 21:51 Dose: Not Given Nystatin (Nystop Topical Powder) 1 applic TOP BID [facility] Last Admin: 01/25/17 17:07 Dose: 1 applic Ondansetron HCl (Zofran Inj) 4 mg IVP Q6 PRN PRN Reason: Nausea/Vomiting Last Admin: 09/19/16 10:26 Dose: 4 mg Pantoprazole Sodium (Protonix Ec Tab) 40 mg PO DAILY [facility] Last Admin: 01/25/17 09:10 Dose: 40 mg Repaglinide (Prandin) 2 mg PO TIDAC [facility] Last Admin: 01/25/17 17:05 Dose: 2 mg Sennosides (Senokot Tab) 25.8 mg PO [facility] Last Admin: 01/25/17 21:42 Dose: 25.8 mg Sevelamer HCl (Renagel) 1,600 mg PO TIDWM [facility] Last Admin: 01/25/17 17:05 Dose: 1,600 mg Simethicone (Mylicon Chew Tab) 80 mg PO Q4H PRN PRN Reason: flatulence or "gassy feeling:" Last Admin: 01/07/17 16:57 Dose: 80 mg Topiramate (Topamax) 50 mg PO BID [facility] Last Admin: 01/25/17 17:07 Dose: 50 mg Vitamin B Complex/Vit C/Folic Acid (Nephro-Ajay) 1 tab PO DAILY [facility] Last Admin: 01/25/17 08:56 Dose: 1 tab - Labs Labs: 01/23/17 09:12 01/23/17 09:12 PT 15.3 Seconds (9.8-13.1) H 12/02/16 13:05 INR 1.4 (0.9-1.2) H 12/02/16 13:05 APTT 37.0 Seconds (25.6-37.1) 12/02/16 13:05 - Constitutional Appears: Non-toxic, No Acute Distress - Head Exam Head Exam: NORMAL INSPECTION - Eye Exam Eye Exam: Normal appearance - ENT Exam ENT Exam: Mucous Membranes Moist - Respiratory Exam Respiratory Exam: NORMAL BREATHING PATTERN - Cardiovascular Exam Cardiovascular Exam: +S1, +S2 - GI/Abdominal Exam GI & Abdominal Exam: Soft - Extremities Exam Extremities Exam: Normal Inspection - Neurological Exam Neurological Exam: Alert, Oriented x3 - Psychiatric Exam Psychiatric exam: Normal Mood - Skin Skin Exam: Dry Assessment and Plan - Assessment and Plan (Free Text) Plan: esrd/pvd/anemia/dm hd tts tomi reviewed anemia epo with hd dm per primary team monitor phos levels
--- NOTE | 2017-01-26 00:08 | CP.PCM.PN ---
Subjective - Date & Time of Evaluation Date of Evaluation: 01/25/17 Time of Evaluation: 21:00 - Subjective Subjective: Patient received her Hemodialysis today and is doing well. She is receiving Antibiotics after Dialysis. There is no Seizures on Topamax which is due for renewal. She is awake, alert, Oriented and is doing OK. She has Normal Vital Signs, after an initial low Blood Pressure. Objective - Vital Signs/Intake and Output Vital Signs (last 24 hours): Temp Pulse Resp BP Pulse Ox 98.3 F 59 L 18 110/52 L 95 01/25/17 16:18 01/25/17 21:51 01/25/17 16:18 01/25/17 19:00 01/25/17 16:18 - Medications Medications: Current Medications Acetaminophen (Tylenol 325mg Tab) 650 mg PO Q4 PRN PRN Reason: Fever >100.4 F Last Admin: 12/26/16 19:40 Dose: 650 mg Acetaminophen (Tylenol 325mg Tab) 650 mg PO Q4 PRN PRN Reason: Pain, moderate (4-7) Last Admin: 01/20/17 11:28 Dose: 650 mg Apixaban (Eliquis) 5 mg PO BID [facility] PRN Reason: Protocol Last Admin: 01/25/17 17:05 Dose: 5 mg Aspirin (Ecotrin) 81 mg PO DAILY [facility] Last Admin: 01/25/17 09:03 Dose: 81 mg Atorvastatin Calcium (Lipitor) 40 mg PO DAILY [facility] Last Admin: 01/25/17 09:13 Dose: 40 mg Calcium Carbonate (Oscal) 500 mg PO BIDWM [facility] Last Admin: 01/25/17 17:07 Dose: 500 mg Collagenase (Santyl) 1 applic TOP DAILY [facility] Last Admin: 01/25/17 08:56 Dose: 1 applic Diphenhydramine HCl (Benadryl) 25 mg PO Q6 PRN PRN Reason: Itching / Pruritus Last Admin: 12/17/16 09:53 Dose: 25 mg Docusate Sodium (Colace) 100 mg PO BID [facility] Last Admin: 01/25/17 17:05 Dose: 100 mg Epoetin Tha (Procrit) 8,000 unit IV MWF [facility] Last Admin: 01/24/17 09:21 Dose: Not Given Ergocalciferol (Drisdol 50,000 Intl Units Cap) 1 cap PO WED [facility] Last Admin: 01/22/17 12:54 Dose: 1 cap Fluconazole (Diflucan) 100 mg PO DAILY [facility] Last Admin: 01/25/17 09:03 Dose: 100 mg Gabapentin (Neurontin) 300 mg PO TID [facility] Last Admin: 01/25/17 17:05 Dose: 300 mg Guaifenesin/Dextromethorphan (Robitussin Dm) 10 ml PO Q4 PRN PRN Reason: Cough Last Admin: 01/13/17 10:51 Dose: 10 ml Hydrocortisone (Anusol-Hc) 1 applic [place] BID PRN PRN Reason: Inflammation Hydromorphone HCl (Dilaudid) 1 mg IVP Q4H PRN PRN Reason: Pain, severe (8-10) Last Admin: 01/25/17 21:55 Dose: 1 mg Sodium Chloride (Sodium Chloride 0.45%) 500 mls @ 10 mls/hr IV .Q24H [facility] Last Admin: 01/25/17 17:07 Dose: Not Given Ceftazidime/Avibactam 0.94 gm/ (Sodium Chloride) 100 mls @ 50 mls/hr IV QOTHERDAY@2200 [facility] Last Admin: 01/24/17 22:00 Dose: Not Given Insulin Detemir (Levemir) 30 units SC HS [facility] Last Admin: 01/25/17 21:43 Dose: 30 units Insulin Human Lispro (Humalog) 14 units SC ACTID [facility] Last Admin: 01/25/17 17:06 Dose: 14 u Levalbuterol HCl (Xopenex) 0.63 mg INH RQ8 PRN PRN Reason: Shortness of Breath Metoprolol Tartrate (Lopressor) 25 mg PO Q12 [facility] Last Admin: 01/25/17 21:51 Dose: Not Given Nystatin (Nystop Topical Powder) 1 applic TOP BID [facility] Last Admin: 01/25/17 17:07 Dose: 1 applic Ondansetron HCl (Zofran Inj) 4 mg IVP Q6 PRN PRN Reason: Nausea/Vomiting Last Admin: 09/19/16 10:26 Dose: 4 mg Pantoprazole Sodium (Protonix Ec Tab) 40 mg PO DAILY [facility] Last Admin: 01/25/17 09:10 Dose: 40 mg Repaglinide (Prandin) 2 mg PO TIDAC [facility] Last Admin: 01/25/17 17:05 Dose: 2 mg Sennosides (Senokot Tab) 25.8 mg PO HS [facility] Last Admin: 01/25/17 21:42 Dose: 25.8 mg Sevelamer HCl (Renagel) 1,600 mg PO TIDWM [facility] Last Admin: 01/25/17 17:05 Dose: 1,600 mg Simethicone (Mylicon Chew Tab) 80 mg PO Q4H PRN PRN Reason: flatulence or "gassy feeling:" Last Admin: 01/07/17 16:57 Dose: 80 mg Topiramate (Topamax) 50 mg PO BID [facility] Last Admin: 01/25/17 17:07 Dose: 50 mg Vitamin B Complex/Vit C/Folic Acid (Nephro-Ajay) 1 tab PO DAILY [facility] Last Admin: 01/25/17 08:56 Dose: 1 tab - Labs Labs: 01/23/17 09:12 01/23/17 09:12 PT 15.3 Seconds (9.8-13.1) H 12/02/16 13:05 INR 1.4 (0.9-1.2) H 12/02/16 13:05 APTT 37.0 Seconds (25.6-37.1) 12/02/16 13:05 Assessment and Plan (1) Diabetes Status: Chronic (2) ESRD (end stage renal disease) Status: Chronic (3) Cellulitis of leg Status: Chronic (4) Hyperlipidemia Status: Chronic (5) Back pain Status: Acute (6) Bacteremia due to Gram-negative bacteria Status: Acute (7) PVD (peripheral vascular disease) Status: Chronic (8) Osteomyelitis of right leg Status: Acute
[2017-01-26] MEDS: HYDROmorphone 0.5 mg/0.5 ml ISec IVP PRN ×4 (04:43→21:55)
[2017-01-26] MEDS: Insulin Lispro (humaLOG) 100 Units/ml Inj SC SCH ×3 (08:36→16:19)
[2017-01-26] MEDS: Multivitamin Vitamin B Complex (Nephro-Vite) Tab PO SCH (08:43)
[2017-01-26] MEDS: Santyl Collagenase OINTMENT TOP SCH (08:44)
[2017-01-26] MEDS: Pantoprazole 40 mg EC Tab PO SCH (08:44)
--- NOTE | 2017-01-26 13:54 | PN ---
ENDOCRINOLOGY FOLLOWUP NOTE DATE: ROOM: 661. SUBJECTIVE: This is a 46-year-old female with recent uncontrolled type 2 insulin-requiring diabetes, now being followed closely for metabolic management. Her glycemic levels are fluctuating, but much improved at this time and the latest glucose levels have ranged from 95 to 157 and 161 mg/dL. So, at this time, we will modify once again her basal and bolus insulin regimen and lower the Humalog to 10 units subcutaneously t.i.d. before meals to start at lunchtime today as ordered. We will continue the Levemir given as 30 units subcutaneously at bedtime daily as given. We will titrate incrementally as indicated to optimize metabolic control. We will also obtain serial chemistries and supplement accordingly as needed. We will follow. Irene Ambrose MD
--- NOTE | 2017-01-26 19:21 | CP.PCM.PN ---
Subjective - Date & Time of Evaluation Date of Evaluation: 01/26/17 Time of Evaluation: 19:19 - Subjective Subjective: Chart reviewed - Glucoses running 93 - 147. BP 110/69 earlier, a while ago it was in the 80's. However, these readings are not always reliable because the extensive calcification of her arteries makes determination of blood pressure difficult. she is not dehydrated, and she has no symptoms of hypotension. Pulse is regular, arount 90-100. For resumption of regular hemodialysis schedule (MWF) starting tomorrow. I will order IV antibiotics to resume then as well (Ceftazidime/avibactam, gentamicin, and daptomycin). Note that ceftazidime/ avibactam was not given yesterday so it is to be given today. Thereafter, it is to be given q 48 hours - and on dialysis days it is to be given after hemodialysis. Wound vac will probably be changed tomorrow. Daily Santyl treatments to right patella continue. Otherwise, no changes. Patient is sleeping now. Objective - Vital Signs/Intake and Output Vital Signs (last 24 hours): Temp Pulse Resp BP Pulse Ox 98.5 F 98 H 18 110/69 95 01/26/17 16:41 01/26/17 16:41 01/26/17 16:41 01/26/17 08:45 01/26/17 16:41 - Medications Medications: Current Medications Acetaminophen (Tylenol 325mg Tab) 650 mg PO Q4 PRN PRN Reason: Fever >100.4 F Last Admin: 12/26/16 19:40 Dose: 650 mg Acetaminophen (Tylenol 325mg Tab) 650 mg PO Q4 PRN PRN Reason: Pain, moderate (4-7) Last Admin: 01/20/17 11:28 Dose: 650 mg Apixaban (Eliquis) 5 mg PO BID [facility] PRN Reason: Protocol Last Admin: 01/26/17 16:19 Dose: 5 mg Aspirin (Ecotrin) 81 mg PO DAILY [facility] Last Admin: 01/26/17 08:37 Dose: 81 mg Atorvastatin Calcium (Lipitor) 40 mg PO DAILY [facility] Last Admin: 01/26/17 08:43 Dose: 40 mg Calcium Carbonate (Oscal) 500 mg PO BIDWM [facility] Last Admin: 01/26/17 16:20 Dose: 500 mg Collagenase (Santyl) 1 applic TOP DAILY [facility] Last Admin: 01/26/17 08:44 Dose: 1 applic Diphenhydramine HCl (Benadryl) 25 mg PO Q6 PRN PRN Reason: Itching / Pruritus Last Admin: 12/17/16 09:53 Dose: 25 mg Docusate Sodium (Colace) 100 mg PO BID [facility] Last Admin: 01/26/17 16:19 Dose: 100 mg Epoetin Tha (Procrit) 8,000 unit IV MWF [facility] Last Admin: 01/24/17 09:21 Dose: Not Given Ergocalciferol (Drisdol 50,000 Intl Units Cap) 1 cap PO WED [facility] Last Admin: 01/22/17 12:54 Dose: 1 cap Fluconazole (Diflucan) 100 mg PO DAILY [facility] Last Admin: 01/26/17 08:37 Dose: 100 mg Gabapentin (Neurontin) 300 mg PO TID [facility] Last Admin: 01/26/17 16:20 Dose: 300 mg Guaifenesin/Dextromethorphan (Robitussin Dm) 10 ml PO Q4 PRN PRN Reason: Cough Last Admin: 01/13/17 10:51 Dose: 10 ml Hydrocortisone (Anusol-Hc) 1 applic [place] BID PRN PRN Reason: Inflammation Hydromorphone HCl (Dilaudid) 1 mg IVP Q4H PRN PRN Reason: Pain, severe (8-10) Last Admin: 01/26/17 17:07 Dose: 1 mg Sodium Chloride (Sodium Chloride 0.45%) 500 mls @ 10 mls/hr IV .Q24H [facility] Last Admin: 01/26/17 16:20 Dose: 10 mls/hr Ceftazidime/Avibactam 0.94 gm/ (Sodium Chloride) 100 mls @ 50 mls/hr IV QOTHERDAY@2200 [facility] Last Admin: 01/24/17 22:00 Dose: Not Given Insulin Detemir (Levemir) 30 units SC HS [facility] Last Admin: 01/25/17 21:43 Dose: 30 units Insulin Human Lispro (Humalog) 10 units SC ACTID [facility] Last Admin: 01/26/17 16:19 Dose: 10 units Levalbuterol HCl (Xopenex) 0.63 mg INH RQ8 PRN PRN Reason: Shortness of Breath Metoprolol Tartrate (Lopressor) 25 mg PO Q12 [facility] Last Admin: 01/26/17 08:45 Dose: 25 mg Nystatin (Nystop Topical Powder) 1 applic TOP BID [facility] Last Admin: 01/26/17 16:20 Dose: Not Given Ondansetron HCl (Zofran Inj) 4 mg IVP Q6 PRN PRN Reason: Nausea/Vomiting Last Admin: 09/19/16 10:26 Dose: 4 mg Pantoprazole Sodium (Protonix Ec Tab) 40 mg PO DAILY [facility] Last Admin: 01/26/17 08:44 Dose: 40 mg Repaglinide (Prandin) 2 mg PO TIDAC [facility] Last Admin: 01/26/17 16:20 Dose: 2 mg Sennosides (Senokot Tab) 25.8 mg PO HS [facility] Last Admin: 01/25/17 21:42 Dose: 25.8 mg Sevelamer HCl (Renagel) 1,600 mg PO TIDWM [facility] Last Admin: 01/26/17 16:20 Dose: 1,600 mg Simethicone (Mylicon Chew Tab) 80 mg PO Q4H PRN PRN Reason: flatulence or "gassy feeling:" Last Admin: 01/07/17 16:57 Dose: 80 mg Topiramate (Topamax) 50 mg PO BID [facility] Last Admin: 01/26/17 16:21 Dose: 50 mg Vitamin B Complex/Vit C/Folic Acid (Nephro-Ajay) 1 tab PO DAILY [facility] Last Admin: 01/26/17 08:43 Dose: 1 tab - Labs Labs: 01/23/17 09:12 01/23/17 09:12 PT 15.3 Seconds (9.8-13.1) H 12/02/16 13:05 INR 1.4 (0.9-1.2) H 12/02/16 13:05 APTT 37.0 Seconds (25.6-37.1) 12/02/16 13:05 Assessment and Plan (1) Status post below knee amputation of right lower extremity Status: Acute (2) ESRD (end stage renal disease) on dialysis Status: Chronic (3) DM type 2 (diabetes mellitus, type 2) Status: Chronic (4) Peripheral arterial occlusive disease Status: Chronic (5) Coagulopathy Status: Chronic
[2017-01-26] MEDS: Insulin Detemir 100 Units/ml Inj SC SCH (21:44)
--- NOTE | 2017-01-26 22:45 | CP.PCM.PN ---
Subjective - Date & Time of Evaluation Date of Evaluation: 01/26/17 Time of Evaluation: 19:55 - Subjective Subjective: She has no seizures on Topamax. Her her last EEG was negative. Her Blood Glucose is better controlled, although still fluctuating. Her V.S show Normal Blood Pressure in her latest readings and she has a mild Tachycardia. She is receiving Hemodialysis this week according to her routine, M, W,F and the Antibiotics are given after the Dialysis. Her infection looks controlled and the Vacuum is being changed regularly. She has normal Mental Status and fluent coherent speech. Objective - Vital Signs/Intake and Output Vital Signs (last 24 hours): Temp Pulse Resp BP Pulse Ox 98.5 F 97 H 18 125/71 95 01/26/17 16:41 01/26/17 21:47 01/26/17 16:41 01/26/17 21:47 01/26/17 16:41 - Medications Medications: Current Medications Acetaminophen (Tylenol 325mg Tab) 650 mg PO Q4 PRN PRN Reason: Fever >100.4 F Last Admin: 12/26/16 19:40 Dose: 650 mg Acetaminophen (Tylenol 325mg Tab) 650 mg PO Q4 PRN PRN Reason: Pain, moderate (4-7) Last Admin: 01/20/17 11:28 Dose: 650 mg Apixaban (Eliquis) 5 mg PO BID [facility] PRN Reason: Protocol Last Admin: 01/26/17 16:19 Dose: 5 mg Aspirin (Ecotrin) 81 mg PO DAILY [facility] Last Admin: 01/26/17 08:37 Dose: 81 mg Atorvastatin Calcium (Lipitor) 40 mg PO DAILY [facility] Last Admin: 01/26/17 08:43 Dose: 40 mg Calcium Carbonate (Oscal) 500 mg PO BIDWM [facility] Last Admin: 01/26/17 16:20 Dose: 500 mg Collagenase (Santyl) 1 applic TOP DAILY [facility] Last Admin: 01/26/17 08:44 Dose: 1 applic Diphenhydramine HCl (Benadryl) 25 mg PO Q6 PRN PRN Reason: Itching / Pruritus Last Admin: 12/17/16 09:53 Dose: 25 mg Docusate Sodium (Colace) 100 mg PO BID [facility] Last Admin: 01/26/17 16:19 Dose: 100 mg Epoetin Tha (Procrit) 8,000 unit IV MWF [facility] Last Admin: 01/24/17 09:21 Dose: Not Given Ergocalciferol (Drisdol 50,000 Intl Units Cap) 1 cap PO WED [facility] Last Admin: 01/22/17 12:54 Dose: 1 cap Fluconazole (Diflucan) 100 mg PO DAILY [facility] Last Admin: 01/26/17 08:37 Dose: 100 mg Gabapentin (Neurontin) 300 mg PO TID [facility] Last Admin: 01/26/17 16:20 Dose: 300 mg Guaifenesin/Dextromethorphan (Robitussin Dm) 10 ml PO Q4 PRN PRN Reason: Cough Last Admin: 01/13/17 10:51 Dose: 10 ml Hydrocortisone (Anusol-Hc) 1 applic [place] BID PRN PRN Reason: Inflammation Hydromorphone HCl (Dilaudid) 1 mg IVP Q4H PRN PRN Reason: Pain, severe (8-10) Last Admin: 01/26/17 21:55 Dose: 1 mg Sodium Chloride (Sodium Chloride 0.45%) 500 mls @ 10 mls/hr IV .Q24H [facility] Last Admin: 01/26/17 16:20 Dose: 10 mls/hr Ceftazidime/Avibactam 0.94 gm/ (Sodium Chloride) 100 mls @ 50 mls/hr IV QOTHERDAY@2200 [facility] Last Admin: 01/26/17 21:38 Dose: 50 mls/hr Daptomycin 650 mg/ Sodium (Chloride) 100 mls @ 100 mls/hr IVPB [facility] Stop: 02/19/17 09:59 Gentamicin Sulfate/Sodium Chloride (Gentamicin 60mg/50ml Ns) 60 mg in 50 mls @ 50 mls/hr IVPB [facility] Insulin Detemir (Levemir) 30 units SC HS [facility] Last Admin: 01/26/17 21:44 Dose: 30 units Insulin Human Lispro (Humalog) 10 units SC ACTID [facility] Last Admin: 01/26/17 16:19 Dose: 10 units Levalbuterol HCl (Xopenex) 0.63 mg INH RQ8 PRN PRN Reason: Shortness of Breath Metoprolol Tartrate (Lopressor) 25 mg PO Q12 [facility] Last Admin: 01/26/17 21:47 Dose: 25 mg Nystatin (Nystop Topical Powder) 1 applic TOP BID [facility] Last Admin: 01/26/17 16:20 Dose: Not Given Ondansetron HCl (Zofran Inj) 4 mg IVP Q6 PRN PRN Reason: Nausea/Vomiting Last Admin: 09/19/16 10:26 Dose: 4 mg Pantoprazole Sodium (Protonix Ec Tab) 40 mg PO DAILY [facility] Last Admin: 01/26/17 08:44 Dose: 40 mg Repaglinide (Prandin) 2 mg PO TIDAC [facility] Last Admin: 01/26/17 16:20 Dose: 2 mg Sennosides (Senokot Tab) 25.8 mg PO HS [facility] Last Admin: 01/26/17 21:42 Dose: 25.8 mg Sevelamer HCl (Renagel) 1,600 mg PO TIDWM [facility] Last Admin: 01/26/17 16:20 Dose: 1,600 mg Simethicone (Mylicon Chew Tab) 80 mg PO Q4H PRN PRN Reason: flatulence or "gassy feeling:" Last Admin: 01/07/17 16:57 Dose: 80 mg Topiramate (Topamax) 50 mg PO BID [facility] Last Admin: 01/26/17 16:21 Dose: 50 mg Vitamin B Complex/Vit C/Folic Acid (Nephro-Ajay) 1 tab PO DAILY [facility] Last Admin: 01/26/17 08:43 Dose: 1 tab - Labs Labs: 01/23/17 09:12 01/23/17 09:12 PT 15.3 Seconds (9.8-13.1) H 12/02/16 13:05 INR 1.4 (0.9-1.2) H 12/02/16 13:05 APTT 37.0 Seconds (25.6-37.1) 12/02/16 13:05 Assessment and Plan (1) Diabetes Status: Chronic (2) ESRD (end stage renal disease) Status: Chronic (3) Cellulitis of leg Status: Chronic (4) Hyperlipidemia Status: Chronic (5) Back pain Status: Acute (6) Bacteremia due to Gram-negative bacteria Status: Acute (7) PVD (peripheral vascular disease) Status: Chronic (8) Osteomyelitis of right leg Status: Acute
[2017-01-27] MEDS: HYDROmorphone 0.5 mg/0.5 ml ISec IVP PRN ×5 (05:07→22:14)
[2017-01-27] MEDS: Santyl Collagenase OINTMENT TOP SCH (08:36)
[2017-01-27] MEDS: Multivitamin Vitamin B Complex (Nephro-Vite) Tab PO SCH (08:41)
[2017-01-27] MEDS: Pantoprazole 40 mg EC Tab PO SCH (08:43)
[2017-01-27] MEDS: Insulin Lispro (humaLOG) 100 Units/ml Inj SC SCH ×3 (08:44→17:18)
--- NOTE | 2017-01-27 09:07 | PN ---
DATE: ENDO FOLLOWUP NOTE LOCATION: Room 661. SUBJECTIVE: This is a 46-year-old female with recent uncontrolled type 2 insulin-requiring diabetes, now being followed closely for metabolic management. Her glycemic levels are fluctuating at this time, but much improved over the last day or so as noted. Her glucose values have ranged from 157 to 167 mg/dL. The latest chemistry showed a BUN of 57, sodium 137, potassium 4.7, chloride 100, CO2 of 20, glucose 137 and creatinine 7.0. So at this time, we will continue the same basal and bolus insulin regimen to allow for dose equilibration and keep her on the Levemir given at 30 units subcu at bedtime daily as given. We will continue her Humalog given units subcu t.i.d. before meals as ordered. We will titrate incremental as indicated to optimize metabolic control. We will follow and advise accordingly. Irene Ambrose MD
--- NOTE | 2017-01-27 10:53 | CP.PCM.PN ---
Subjective - Date & Time of Evaluation Date of Evaluation: 01/27/17 Time of Evaluation: 10:53 - Subjective Subjective: Patient consciousness alert doing much better Continue to improve Appetite is good Objective - Vital Signs/Intake and Output Vital Signs (last 24 hours): Temp Pulse Resp BP Pulse Ox 97.5 F L 103 H 20 111/64 95 01/27/17 08:08 01/27/17 08:08 01/27/17 08:08 01/27/17 08:08 01/27/17 08:08 - Medications Medications: Current Medications Acetaminophen (Tylenol 325mg Tab) 650 mg PO Q4 PRN PRN Reason: Fever >100.4 F Last Admin: 12/26/16 19:40 Dose: 650 mg Acetaminophen (Tylenol 325mg Tab) 650 mg PO Q4 PRN PRN Reason: Pain, moderate (4-7) Last Admin: 01/20/17 11:28 Dose: 650 mg Apixaban (Eliquis) 5 mg PO BID [facility] PRN Reason: Protocol Last Admin: 01/27/17 08:41 Dose: 5 mg Aspirin (Ecotrin) 81 mg PO DAILY [facility] Last Admin: 01/27/17 08:43 Dose: 81 mg Atorvastatin Calcium (Lipitor) 40 mg PO DAILY [facility] Last Admin: 01/27/17 08:42 Dose: 40 mg Calcium Carbonate (Oscal) 500 mg PO BIDWM [facility] Last Admin: 01/27/17 08:41 Dose: 500 mg Collagenase (Santyl) 1 applic TOP DAILY [facility] Last Admin: 01/27/17 08:36 Dose: 1 applic Diphenhydramine HCl (Benadryl) 25 mg PO Q6 PRN PRN Reason: Itching / Pruritus Last Admin: 12/17/16 09:53 Dose: 25 mg Docusate Sodium (Colace) 100 mg PO BID [facility] Last Admin: 01/27/17 08:40 Dose: 100 mg Epoetin Tha (Procrit) 8,000 unit IV MWF [facility] Last Admin: 01/24/17 09:21 Dose: Not Given Ergocalciferol (Drisdol 50,000 Intl Units Cap) 1 cap PO WED [facility] Last Admin: 01/22/17 12:54 Dose: 1 cap Fluconazole (Diflucan) 100 mg PO DAILY [facility] Last Admin: 01/27/17 08:40 Dose: 100 mg Gabapentin (Neurontin) 300 mg PO TID [facility] Last Admin: 01/27/17 08:40 Dose: 300 mg Guaifenesin/Dextromethorphan (Robitussin Dm) 10 ml PO Q4 PRN PRN Reason: Cough Last Admin: 01/13/17 10:51 Dose: 10 ml Hydrocortisone (Anusol-Hc) 1 applic [place] BID PRN PRN Reason: Inflammation Hydromorphone HCl (Dilaudid) 1 mg IVP Q4H PRN PRN Reason: Pain, severe (8-10) Last Admin: 01/27/17 08:57 Dose: 1 mg Sodium Chloride (Sodium Chloride 0.45%) 500 mls @ 10 mls/hr IV .Q24H [facility] Last Admin: 01/26/17 16:20 Dose: 10 mls/hr Ceftazidime/Avibactam 0.94 gm/ (Sodium Chloride) 100 mls @ 50 mls/hr IV QOTHERDAY@2200 [facility] Last Admin: 01/26/17 21:38 Dose: 50 mls/hr Daptomycin 650 mg/ Sodium (Chloride) 100 mls @ 100 mls/hr [place]PB [facility] Stop: 02/19/17 09:59 Gentamicin Sulfate/Sodium Chloride (Gentamicin 60mg/50ml Ns) 60 mg in 50 mls @ 50 mls/hr [place]PB [facility] Insulin Detemir (Levemir) 30 units SC HS [facility] Last Admin: 01/26/17 21:44 Dose: 30 units Insulin Human Lispro (Humalog) 10 units SC ACTID [facility] Last Admin: 01/27/17 08:44 Dose: 10 units Levalbuterol HCl (Xopenex) 0.63 mg INH RQ8 PRN PRN Reason: Shortness of Breath Metoprolol Tartrate (Lopressor) 25 mg PO Q12 [facility] Last Admin: 01/27/17 08:39 Dose: Not Given Nystatin (Nystop Topical Powder) 1 applic TOP BID [facility] Last Admin: 01/27/17 08:44 Dose: Not Given Ondansetron HCl (Zofran Inj) 4 mg IVP Q6 PRN PRN Reason: Nausea/Vomiting Last Admin: 09/19/16 10:26 Dose: 4 mg Pantoprazole Sodium (Protonix Ec Tab) 40 mg PO DAILY [facility] Last Admin: 01/27/17 08:43 Dose: 40 mg Repaglinide (Prandin) 2 mg PO TIDAC [facility] Last Admin: 01/27/17 08:40 Dose: 2 mg Sennosides (Senokot Tab) 25.8 mg PO HS [facility] Last Admin: 01/26/17 21:42 Dose: 25.8 mg Sevelamer HCl (Renagel) 1,600 mg PO TIDWM [facility] Last Admin: 01/27/17 08:41 Dose: 1,600 mg Simethicone (Mylicon Chew Tab) 80 mg PO Q4H PRN PRN Reason: flatulence or "gassy feeling:" Last Admin: 01/07/17 16:57 Dose: 80 mg Topiramate (Topamax) 50 mg PO BID [facility] Last Admin: 01/27/17 08:45 Dose: 50 mg Vitamin B Complex/Vit C/Folic Acid (Nephro-Ajay) 1 tab PO DAILY [facility] Last Admin: 01/27/17 08:41 Dose: 1 tab - Labs Labs: 01/23/17 09:12 01/23/17 09:12 PT 15.3 Seconds (9.8-13.1) H 12/02/16 13:05 INR 1.4 (0.9-1.2) H 12/02/16 13:05 APTT 37.0 Seconds (25.6-37.1) 12/02/16 13:05 - Constitutional Appears: No Acute Distress - ENT Exam ENT Exam: Mucous Membranes Moist - Respiratory Exam Respiratory Exam: NORMAL BREATHING PATTERN. absent: Chest Wall Tenderness - Cardiovascular Exam Cardiovascular Exam: REGULAR RHYTHM. absent: JVD, Rubs - Extremities Exam Extremities Exam: absent: Calf Tenderness - Back Exam Back Exam: absent: CVA tenderness (L), CVA tenderness (R) - Neurological Exam Neurological Exam: Alert Assessment and Plan (1) ESRD (end stage renal disease) Assessment & Plan: Patient scheduled to have dialysis today back again on [facility] Hopefully no misunderstanding or surprise in the scheduling. Antibiotics as arranged by the primary team and infectious disease No new events reported Hemoglobin noted to go up 12.1 Therefore,cut EPO to 4000 unit And keep monitoring Status: Chronic (2) Cellulitis of leg Status: Chronic
--- NOTE | 2017-01-27 11:44 | CP.PCM.PN ---
Subjective - Date & Time of Evaluation Date of Evaluation: 01/27/17 Time of Evaluation: 11:41 - Subjective Subjective: Dr. Guadarrama's note and decrease in Procrit dose appreciated. Patient is comfortable, awaiting hemodialysis. No fevers, cough, dyspnea, or pain. Wound vac RLE changed - showing excellent granulation result with decreased width, length, and depth of right BK wound. Patellar wound is similarly improving but still has fibrinous exudate. Santyl dressings to continue. BP is good, and episodies of seeming hypotension are asymptomatic and possibly not real ! Blood work will be ordered on Friday. Glucose was 124 this morning, 147 yesterday. Objective - Vital Signs/Intake and Output Vital Signs (last 24 hours): Temp Pulse Resp BP Pulse Ox 97.5 F L 103 H 20 111/64 95 01/27/17 08:08 01/27/17 08:08 01/27/17 08:08 01/27/17 08:08 01/27/17 08:08 - Medications Medications: Current Medications Acetaminophen (Tylenol 325mg Tab) 650 mg PO Q4 PRN PRN Reason: Fever >100.4 F Last Admin: 12/26/16 19:40 Dose: 650 mg Acetaminophen (Tylenol 325mg Tab) 650 mg PO Q4 PRN PRN Reason: Pain, moderate (4-7) Last Admin: 01/20/17 11:28 Dose: 650 mg Apixaban (Eliquis) 5 mg PO BID [facility] PRN Reason: Protocol Last Admin: 01/27/17 08:41 Dose: 5 mg Aspirin (Ecotrin) 81 mg PO DAILY [facility] Last Admin: 01/27/17 08:43 Dose: 81 mg Atorvastatin Calcium (Lipitor) 40 mg PO DAILY [facility] Last Admin: 01/27/17 08:42 Dose: 40 mg Calcium Carbonate (Oscal) 500 mg PO BIDWM [facility] Last Admin: 01/27/17 08:41 Dose: 500 mg Collagenase (Santyl) 1 applic TOP DAILY [facility] Last Admin: 01/27/17 08:36 Dose: 1 applic Diphenhydramine HCl (Benadryl) 25 mg PO Q6 PRN PRN Reason: Itching / Pruritus Last Admin: 12/17/16 09:53 Dose: 25 mg Docusate Sodium (Colace) 100 mg PO BID [facility] Last Admin: 01/27/17 08:40 Dose: 100 mg Epoetin Tha (Procrit) 4,000 unit IV [facility] Ergocalciferol (Drisdol 50,000 Intl Units Cap) 1 cap PO WED [facility] Last Admin: 01/22/17 12:54 Dose: 1 cap Fluconazole (Diflucan) 100 mg PO DAILY [facility] Last Admin: 01/27/17 08:40 Dose: 100 mg Gabapentin (Neurontin) 300 mg PO TID [facility] Last Admin: 01/27/17 08:40 Dose: 300 mg Guaifenesin/Dextromethorphan (Robitussin Dm) 10 ml PO Q4 PRN PRN Reason: Cough Last Admin: 01/13/17 10:51 Dose: 10 ml Hydrocortisone (Anusol-Hc) 1 applic [place] BID PRN PRN Reason: Inflammation Hydromorphone HCl (Dilaudid) 1 mg IVP Q4H PRN PRN Reason: Pain, severe (8-10) Last Admin: 01/27/17 08:57 Dose: 1 mg Sodium Chloride (Sodium Chloride 0.45%) 500 mls @ 10 mls/hr IV .Q24H [facility] Last Admin: 01/26/17 16:20 Dose: 10 mls/hr Ceftazidime/Avibactam 0.94 gm/ (Sodium Chloride) 100 mls @ 50 mls/hr IV QOTHERDAY@2200 [facility] Last Admin: 01/26/17 21:38 Dose: 50 mls/hr Daptomycin 650 mg/ Sodium (Chloride) 100 mls @ 100 mls/hr IVPB [facility] Stop: 02/19/17 09:59 Gentamicin Sulfate/Sodium Chloride (Gentamicin 60mg/50ml Ns) 60 mg in 50 mls @ 50 mls/hr IVPB [facility] Insulin Detemir (Levemir) 30 units SC HS [facility] Last Admin: 01/26/17 21:44 Dose: 30 units Insulin Human Lispro (Humalog) 10 units SC ACTID [facility] Last Admin: 01/27/17 08:44 Dose: 10 units Levalbuterol HCl (Xopenex) 0.63 mg INH RQ8 PRN PRN Reason: Shortness of Breath Metoprolol Tartrate (Lopressor) 25 mg PO Q12 [facility] Last Admin: 01/27/17 08:39 Dose: Not Given Nystatin (Nystop Topical Powder) 1 applic TOP BID [facility] Last Admin: 01/27/17 08:44 Dose: Not Given Ondansetron HCl (Zofran Inj) 4 mg IVP Q6 PRN PRN Reason: Nausea/Vomiting Last Admin: 09/19/16 10:26 Dose: 4 mg Pantoprazole Sodium (Protonix Ec Tab) 40 mg PO DAILY [facility] Last Admin: 01/27/17 08:43 Dose: 40 mg Repaglinide (Prandin) 2 mg PO TIDAC [facility] Last Admin: 01/27/17 08:40 Dose: 2 mg Sennosides (Senokot Tab) 25.8 mg PO HS [facility] Last Admin: 01/26/17 21:42 Dose: 25.8 mg Sevelamer HCl (Renagel) 1,600 mg PO TIDWM [facility] Last Admin: 01/27/17 08:41 Dose: 1,600 mg Simethicone (Mylicon Chew Tab) 80 mg PO Q4H PRN PRN Reason: flatulence or "gassy feeling:" Last Admin: 01/07/17 16:57 Dose: 80 mg Topiramate (Topamax) 50 mg PO BID [facility] Last Admin: 01/27/17 08:45 Dose: 50 mg Vitamin B Complex/Vit C/Folic Acid (Nephro-Ajay) 1 tab PO DAILY [facility] Last Admin: 01/27/17 08:41 Dose: 1 tab - Labs Labs: 01/23/17 09:12 01/23/17 09:12 PT 15.3 Seconds (9.8-13.1) H 12/02/16 13:05 INR 1.4 (0.9-1.2) H 12/02/16 13:05 APTT 37.0 Seconds (25.6-37.1) 12/02/16 13:05 - Head Exam Head Exam: NORMAL INSPECTION - Eye Exam Eye Exam: Normal appearance - ENT Exam ENT Exam: Mucous Membranes Moist - Respiratory Exam Respiratory Exam: Clear to Ausculation Bilateral, NORMAL BREATHING PATTERN - Cardiovascular Exam Cardiovascular Exam: REGULAR RHYTHM, +S1, +S2 - GI/Abdominal Exam GI & Abdominal Exam: Soft - Extremities Exam Additional comments: All dressings and wound vac intact RLE. L femoral PICC line intact. - Back Exam Back Exam: NORMAL INSPECTION - Psychiatric Exam Psychiatric exam: Normal Affect, Normal Mood - Skin Skin Exam: Dry, Normal Color, Warm Assessment and Plan (1) Status post below knee amputation of right lower extremity Assessment & Plan: Doing very well - to continue current care - all antibiotics reviewed and reordered. Status: Acute (2) ESRD (end stage renal disease) on dialysis Assessment & Plan: Hopefully hemodialysis will be done on schedule today Status: Chronic (3) DM type 2 (diabetes mellitus, type 2) Assessment & Plan: Controlled on current oral and insulin regimen. Status: Chronic (4) Peripheral arterial occlusive disease Status: Chronic (5) Coagulopathy Status: Chronic
[2017-01-27] MEDS: Epoetin Alfa 20000 UNIT/ML Inj IV SCH (12:21)
[2017-01-27] MEDS: Epoetin Alfa 4000 UNIT/ML Inj IV SCH (14:39)
--- NOTE | 2017-01-27 15:25 | CP.PCM.PN ---
Subjective - Date & Time of Evaluation Date of Evaluation: 01/27/17 Time of Evaluation: 14:22 - Subjective Subjective: I D NOTE AFEBRILE HAVE DISCUSSED ANTIBIOTIC SCHEDULE c PHARMACY WILL CONTINUE C AVYCAZ QOD Objective - Vital Signs/Intake and Output Vital Signs (last 24 hours): Temp Pulse Resp BP Pulse Ox 97.5 F L 103 H 20 111/64 95 01/27/17 08:08 01/27/17 08:08 01/27/17 08:08 01/27/17 08:08 01/27/17 08:08 - Medications Medications: Current Medications Acetaminophen (Tylenol 325mg Tab) 650 mg PO Q4 PRN PRN Reason: Fever >100.4 F Last Admin: 12/26/16 19:40 Dose: 650 mg Acetaminophen (Tylenol 325mg Tab) 650 mg PO Q4 PRN PRN Reason: Pain, moderate (4-7) Last Admin: 01/20/17 11:28 Dose: 650 mg Apixaban (Eliquis) 5 mg PO BID [facility] PRN Reason: Protocol Last Admin: 01/27/17 08:41 Dose: 5 mg Aspirin (Ecotrin) 81 mg PO DAILY [facility] Last Admin: 01/27/17 08:43 Dose: 81 mg Atorvastatin Calcium (Lipitor) 40 mg PO DAILY [facility] Last Admin: 01/27/17 08:42 Dose: 40 mg Calcium Carbonate (Oscal) 500 mg PO BIDWM [facility] Last Admin: 01/27/17 08:41 Dose: 500 mg Collagenase (Santyl) 1 applic TOP DAILY [facility] Last Admin: 01/27/17 08:36 Dose: 1 applic Diphenhydramine HCl (Benadryl) 25 mg PO Q6 PRN PRN Reason: Itching / Pruritus Last Admin: 12/17/16 09:53 Dose: 25 mg Docusate Sodium (Colace) 100 mg PO BID [facility] Last Admin: 01/27/17 08:40 Dose: 100 mg Epoetin Tha (Procrit) 4,000 unit IV MWF [facility] Last Admin: 01/27/17 14:39 Dose: 4,000 unit Ergocalciferol (Drisdol 50,000 Intl Units Cap) 1 cap PO WED [facility] Last Admin: 01/22/17 12:54 Dose: 1 cap Fluconazole (Diflucan) 100 mg PO DAILY [facility] Last Admin: 01/27/17 08:40 Dose: 100 mg Gabapentin (Neurontin) 300 mg PO TID [facility] Last Admin: 01/27/17 12:31 Dose: 300 mg Guaifenesin/Dextromethorphan (Robitussin Dm) 10 ml PO Q4 PRN PRN Reason: Cough Last Admin: 01/13/17 10:51 Dose: 10 ml Hydrocortisone (Anusol-Hc) 1 applic [place] BID PRN PRN Reason: Inflammation Hydromorphone HCl (Dilaudid) 1 mg IVP Q4H PRN PRN Reason: Pain, severe (8-10) Last Admin: 01/27/17 13:21 Dose: 1 mg Sodium Chloride (Sodium Chloride 0.45%) 500 mls @ 10 mls/hr IV .Q24H [facility] Last Admin: 01/26/17 16:20 Dose: 10 mls/hr Ceftazidime/Avibactam 0.94 gm/ (Sodium Chloride) 100 mls @ 50 mls/hr IV QOTHERDAY@2200 [facility] Last Admin: 01/26/17 21:38 Dose: 50 mls/hr Daptomycin 650 mg/ Sodium (Chloride) 100 mls @ 100 mls/hr [place]PB [facility] [place]: 02/19/17 09:59 Gentamicin Sulfate/Sodium Chloride (Gentamicin 60mg/50ml Ns) 60 mg in 50 mls @ 50 mls/hr IVPB [facility] Insulin Detemir (Levemir) 30 units SC HS [facility] Last Admin: 01/26/17 21:44 Dose: 30 units Insulin Human Lispro (Humalog) 10 units SC ACTID [facility] Last Admin: 01/27/17 12:30 Dose: 10 units Levalbuterol HCl (Xopenex) 0.63 mg INH RQ8 PRN PRN Reason: Shortness of Breath Metoprolol Tartrate (Lopressor) 25 mg PO Q12 [facility] Last Admin: 01/27/17 08:39 Dose: Not Given Nystatin (Nystop Topical Powder) 1 applic TOP BID [facility] Last Admin: 01/27/17 08:44 Dose: Not Given Ondansetron HCl (Zofran Inj) 4 mg IVP Q6 PRN PRN Reason: Nausea/Vomiting Last Admin: 09/19/16 10:26 Dose: 4 mg Pantoprazole Sodium (Protonix Ec Tab) 40 mg PO DAILY [facility] Last Admin: 01/27/17 08:43 Dose: 40 mg Repaglinide (Prandin) 2 mg PO TIDAC [facility] Last Admin: 01/27/17 12:30 Dose: 2 mg Sennosides (Senokot Tab) 25.8 mg PO HS [facility] Last Admin: 01/26/17 21:42 Dose: 25.8 mg Sevelamer HCl (Renagel) 1,600 mg PO TIDWM [facility] Last Admin: 01/27/17 12:30 Dose: 1,600 mg Simethicone (Mylicon Chew Tab) 80 mg PO Q4H PRN PRN Reason: flatulence or "gassy feeling:" Last Admin: 01/07/17 16:57 Dose: 80 mg Topiramate (Topamax) 50 mg PO BID [facility] Last Admin: 01/27/17 08:45 Dose: 50 mg Vitamin B Complex/Vit C/Folic Acid (Nephro-Jaay) 1 tab PO DAILY [facility] Last Admin: 01/27/17 08:41 Dose: 1 tab - Labs Labs: 01/23/17 09:12 01/23/17 09:12 PT 15.3 Seconds (9.8-13.1) H 12/02/16 13:05 INR 1.4 (0.9-1.2) H 12/02/16 13:05 APTT 37.0 Seconds (25.6-37.1) 12/02/16 13:05
--- NOTE | 2017-01-27 16:38 | PN ---
ENDOCRINOLOGY FOLLOWUP NOTE DATE: LOCATION: Room 661. This is a 46-year-old female with recent uncontrolled type 2 insulin-requiring diabetes, now being followed closely for metabolic management. Her glycemic levels are fluctuating but much improved at this time and the latest glucose levels have ranged from 124-147 mg/dL. So at this time, we will continue the same basal and bolus insulin regimen to allow for dose equilibration and keep her on the Levemir given as 30 units subQ at bedtime daily as given. We will continue the Humalog given as 10 units subQ t.i.d. before meals as ordered. We will titrate incrementally as indicated to optimize metabolic control. We will follow with you. Irene Ambrose MD
[2017-01-27] MEDS: Gentamicin 60mg/50ml NS 60 MG/50 ML BAG IVPB SCH (20:24)
[2017-01-27] MEDS: Insulin Detemir 100 Units/ml Inj SC SCH (21:43)
--- NOTE | 2017-01-27 22:50 | CP.PCM.PN ---
Subjective - Date & Time of Evaluation Date of Evaluation: 01/27/17 Time of Evaluation: 20:00 - Subjective Subjective: She is doing well, received her treatment of Avycaz. She is feeling better. She is on Hemodialysis for ESRD. She is awake alert oriented. She has no seizures on Topamax. Blood sugar is better controlled. Vital signs are controlled. Objective - Vital Signs/Intake and Output Vital Signs (last 24 hours): Temp Pulse Resp BP Pulse Ox 97.6 F 108 H 18 99/74 L 95 01/27/17 16:17 01/27/17 21:50 01/27/17 16:17 01/27/17 21:50 01/27/17 16:17 - Medications Medications: Current Medications Acetaminophen (Tylenol 325mg Tab) 650 mg PO Q4 PRN PRN Reason: Fever >100.4 F Last Admin: 12/26/16 19:40 Dose: 650 mg Acetaminophen (Tylenol 325mg Tab) 650 mg PO Q4 PRN PRN Reason: Pain, moderate (4-7) Last Admin: 01/20/17 11:28 Dose: 650 mg Apixaban (Eliquis) 5 mg PO BID [facility] PRN Reason: Protocol Last Admin: 01/27/17 17:17 Dose: 5 mg Aspirin (Ecotrin) 81 mg PO DAILY [facility] Last Admin: 01/27/17 08:43 Dose: 81 mg Atorvastatin Calcium (Lipitor) 40 mg PO DAILY [facility] Last Admin: 01/27/17 08:42 Dose: 40 mg Calcium Carbonate (Oscal) 500 mg PO BIDWM [facility] Last Admin: 01/27/17 17:17 Dose: 500 mg Collagenase (Santyl) 1 applic TOP DAILY [facility] Last Admin: 01/27/17 08:36 Dose: 1 applic Diphenhydramine HCl (Benadryl) 25 mg PO Q6 PRN PRN Reason: Itching / Pruritus Last Admin: 12/17/16 09:53 Dose: 25 mg Docusate Sodium (Colace) 100 mg PO BID [facility] Last Admin: 01/27/17 17:18 Dose: 100 mg Epoetin Tha (Procrit) 4,000 unit IV MWF [facility] Last Admin: 01/27/17 14:39 Dose: 4,000 unit Ergocalciferol (Drisdol 50,000 Intl Units Cap) 1 cap PO WED [facility] Last Admin: 01/22/17 12:54 Dose: 1 cap Fluconazole (Diflucan) 100 mg PO DAILY [facility] Last Admin: 01/27/17 08:40 Dose: 100 mg Gabapentin (Neurontin) 300 mg PO TID [facility] Last Admin: 01/27/17 17:18 Dose: 300 mg Guaifenesin/Dextromethorphan (Robitussin Dm) 10 ml PO Q4 PRN PRN Reason: Cough Last Admin: 01/13/17 10:51 Dose: 10 ml Hydrocortisone (Anusol-Hc) 1 applic [place] BID PRN PRN Reason: Inflammation Hydromorphone HCl (Dilaudid) 1 mg IVP Q4H PRN PRN Reason: Pain, severe (8-10) Last Admin: 01/27/17 22:14 Dose: 1 mg Sodium Chloride (Sodium Chloride 0.45%) 500 mls @ 10 mls/hr IV .Q24H [facility] Last Admin: 01/27/17 17:26 Dose: 10 mls/hr Ceftazidime/Avibactam 0.94 gm/ (Sodium Chloride) 100 mls @ 50 mls/hr IV QOTHERDAY@2200 [facility] Last Admin: 01/26/17 21:38 Dose: 50 mls/hr Daptomycin 650 mg/ Sodium (Chloride) 100 mls @ 100 mls/hr IVPB [facility] Stop: 02/19/17 09:59 Last Admin: 01/27/17 20:23 Dose: 100 mls/hr Gentamicin Sulfate/Sodium Chloride (Gentamicin 60mg/50ml Ns) 60 mg in 50 mls @ 50 mls/hr IVPB [facility] Last Admin: 01/27/17 20:24 Dose: 50 mls/hr Insulin Detemir (Levemir) 30 units SC HS [facility] Last Admin: 01/27/17 21:43 Dose: 30 units Insulin Human Lispro (Humalog) 10 units SC ACTID [facility] Last Admin: 01/27/17 17:18 Dose: Not Given Levalbuterol HCl (Xopenex) 0.63 mg INH RQ8 PRN PRN Reason: Shortness of Breath Metoprolol Tartrate (Lopressor) 25 mg PO Q12 [facility] Last Admin: 01/27/17 21:50 Dose: 25 mg Nystatin (Nystop Topical Powder) 1 applic TOP BID [facility] Last Admin: 01/27/17 17:18 Dose: Not Given Ondansetron HCl (Zofran Inj) 4 mg IVP Q6 PRN PRN Reason: Nausea/Vomiting Last Admin: 09/19/16 10:26 Dose: 4 mg Pantoprazole Sodium (Protonix Ec Tab) 40 mg PO DAILY [facility] Last Admin: 01/27/17 08:43 Dose: 40 mg Repaglinide (Prandin) 2 mg PO TIDAC [facility] Last Admin: 01/27/17 17:17 Dose: 2 mg Sennosides (Senokot Tab) 25.8 mg PO HS [facility] Last Admin: 01/27/17 21:42 Dose: 25.8 mg Sevelamer HCl (Renagel) 1,600 mg PO TIDWM [facility] Last Admin: 01/27/17 17:17 Dose: 1,600 mg Simethicone (Mylicon Chew Tab) 80 mg PO Q4H PRN PRN Reason: flatulence or "gassy feeling:" Last Admin: 01/07/17 16:57 Dose: 80 mg Topiramate (Topamax) 50 mg PO BID [facility] Last Admin: 01/27/17 17:19 Dose: 50 mg Vitamin B Complex/Vit C/Folic Acid (Nephro-Ajay) 1 tab PO DAILY [facility] Last Admin: 01/27/17 08:41 Dose: 1 tab - Labs Labs: 01/23/17 09:12 01/23/17 09:12 PT 15.3 Seconds (9.8-13.1) H 12/02/16 13:05 INR 1.4 (0.9-1.2) H 12/02/16 13:05 APTT 37.0 Seconds (25.6-37.1) 12/02/16 13:05 Assessment and Plan (1) Diabetes Status: Chronic (2) ESRD (end stage renal disease) Status: Chronic (3) Cellulitis of leg Status: Chronic (4) Hyperlipidemia Status: Chronic (5) Back pain Status: Acute (6) Bacteremia due to Gram-negative bacteria Status: Acute (7) PVD (peripheral vascular disease) Status: Chronic (8) Osteomyelitis of right leg Status: Acute
[2017-01-28] MEDS: HYDROmorphone 0.5 mg/0.5 ml ISec IVP PRN (06:22)
[2017-01-28] MEDS: Insulin Lispro (humaLOG) 100 Units/ml Inj SC SCH ×3 (09:00→16:16)
[2017-01-28] MEDS: Multivitamin Vitamin B Complex (Nephro-Vite) Tab PO SCH (09:31)
[2017-01-28] MEDS: Pantoprazole 40 mg EC Tab PO SCH (09:31)
[2017-01-28] MEDS: Santyl Collagenase OINTMENT TOP SCH (09:33)
--- NOTE | 2017-01-28 12:59 | CP.PCM.PN ---
Subjective - Date & Time of Evaluation Date of Evaluation: 01/28/17 Time of Evaluation: 12:58 - Subjective Subjective: Patient stable Feels good No new event reported Antibiotics as per ID and primary team Leg wound as noted also in the discussion and diagnosis Continue the same Objective - Vital Signs/Intake and Output Vital Signs (last 24 hours): Temp Pulse Resp BP Pulse Ox 97.7 F 100 H 18 113/75 98 01/28/17 08:50 01/28/17 09:30 01/28/17 08:50 01/28/17 09:30 01/28/17 08:50 - Medications Medications: Current Medications Acetaminophen (Tylenol 325mg Tab) 650 mg PO Q4 PRN PRN Reason: Fever >100.4 F Last Admin: 12/26/16 19:40 Dose: 650 mg Acetaminophen (Tylenol 325mg Tab) 650 mg PO Q4 PRN PRN Reason: Pain, moderate (4-7) Last Admin: 01/20/17 11:28 Dose: 650 mg Apixaban (Eliquis) 5 mg PO BID [facility] PRN Reason: Protocol Last Admin: 01/28/17 09:29 Dose: 5 mg Aspirin (Ecotrin) 81 mg PO DAILY [facility] Last Admin: 01/28/17 09:30 Dose: 81 mg Atorvastatin Calcium (Lipitor) 40 mg PO DAILY [facility] Last Admin: 01/28/17 09:31 Dose: 40 mg Calcium Carbonate (Oscal) 500 mg PO BIDWM [facility] Last Admin: 01/28/17 09:28 Dose: 500 mg Collagenase (Santyl) 1 applic TOP DAILY [facility] Last Admin: 01/28/17 09:33 Dose: 1 applic Diphenhydramine HCl (Benadryl) 25 mg PO Q6 PRN PRN Reason: Itching / Pruritus Last Admin: 12/17/16 09:53 Dose: 25 mg Docusate Sodium (Colace) 100 mg PO BID [facility] Last Admin: 01/28/17 09:30 Dose: 100 mg Epoetin Tha (Procrit) 4,000 unit IV MWF [facility] Last Admin: 01/27/17 14:39 Dose: 4,000 unit Ergocalciferol (Drisdol 50,000 Intl Units Cap) 1 cap PO WED [facility] Last Admin: 01/22/17 12:54 Dose: 1 cap Fluconazole (Diflucan) 100 mg PO DAILY [facility] Last Admin: 01/28/17 09:32 Dose: 100 mg Gabapentin (Neurontin) 300 mg PO TID [facility] Last Admin: 01/28/17 12:39 Dose: 300 mg Guaifenesin/Dextromethorphan (Robitussin Dm) 10 ml PO Q4 PRN PRN Reason: Cough Last Admin: 01/13/17 10:51 Dose: 10 ml Hydrocortisone (Anusol-Hc) 1 applic [place] BID PRN PRN Reason: Inflammation Hydromorphone HCl (Dilaudid) 1 mg IVP Q4H PRN PRN Reason: Pain, severe (8-10) Last Admin: 01/28/17 11:21 Dose: 1 mg Sodium Chloride (Sodium Chloride 0.45%) 500 mls @ 10 mls/hr IV .Q24H [facility] Last Admin: 01/27/17 17:26 Dose: 10 mls/hr Ceftazidime/Avibactam 0.94 gm/ (Sodium Chloride) 100 mls @ 50 mls/hr IV QOTHERDAY@2200 [facility] Last Admin: 01/26/17 21:38 Dose: 50 mls/hr Daptomycin 650 mg/ Sodium (Chloride) 100 mls @ 100 mls/hr IVPB [facility] [place] Stop: 02/19/17 09:59 Last Admin: 01/27/17 20:23 Dose: 100 mls/hr Gentamicin Sulfate/Sodium Chloride (Gentamicin 60mg/50ml Ns) 60 mg in 50 mls @ 50 mls/hr IVPB [facility] [place] Last Admin: 01/27/17 20:24 Dose: 50 mls/hr Insulin Detemir (Levemir) 30 units SC HS [facility] Last Admin: 01/27/17 21:43 Dose: 30 units Insulin Human Lispro (Humalog) 10 units [place] ACTID [facility] Last Admin: 01/28/17 12:43 Dose: 10 units Levalbuterol HCl (Xopenex) 0.63 mg INH RQ8 PRN PRN Reason: Shortness of Breath Metoprolol Tartrate (Lopressor) 25 mg PO Q12 [facility] Last Admin: 01/28/17 09:30 Dose: 25 mg Nystatin (Nystop Topical Powder) 1 applic TOP BID [facility] Last Admin: 01/28/17 09:30 Dose: 1 applic Ondansetron HCl (Zofran Inj) 4 mg IVP Q6 PRN PRN Reason: Nausea/Vomiting Last Admin: 09/19/16 10:26 Dose: 4 mg Pantoprazole Sodium (Protonix Ec Tab) 40 mg PO DAILY [facility] Last Admin: 01/28/17 09:31 Dose: 40 mg Repaglinide (Prandin) 2 mg PO TIDAC [facility] Last Admin: 01/28/17 12:38 Dose: 2 mg Sennosides (Senokot Tab) 25.8 mg PO HS [facility] Last Admin: 01/27/17 21:42 Dose: 25.8 mg Sevelamer HCl (Renagel) 1,600 mg PO TIDWM [facility] Last Admin: 01/28/17 12:38 Dose: 1,600 mg Simethicone (Mylicon Chew Tab) 80 mg PO Q4H PRN PRN Reason: flatulence or "gassy feeling:" Last Admin: 01/07/17 16:57 Dose: 80 mg Topiramate (Topamax) 50 mg PO BID [facility] Last Admin: 01/28/17 09:29 Dose: 50 mg Vitamin B Complex/Vit C/Folic Acid (Nephro-Ajay) 1 tab PO DAILY [facility] Last Admin: 01/28/17 09:31 Dose: 1 tab - Labs Labs: 01/23/17 09:12 01/23/17 09:12 PT 15.3 Seconds (9.8-13.1) H 12/02/16 13:05 INR 1.4 (0.9-1.2) H 12/02/16 13:05 APTT 37.0 Seconds (25.6-37.1) 12/02/16 13:05 Assessment and Plan (1) ESRD (end stage renal disease) Status: Chronic (2) Cellulitis of leg Status: Chronic
--- NOTE | 2017-01-28 18:23 | CP.PCM.PN ---
Subjective - Date & Time of Evaluation Date of Evaluation: 01/28/17 Time of Evaluation: 18:19 - Subjective Subjective: Patient is comfortable. She did physical therapy with standing at the bedside on her left BK prosthesis. Glucoses are acceptable 174 and 147, albeit a little high. Slightly light headed on sudden standing, but it quickly passed. Blood pressures and pulse OK. Wound vac to be changed on 01/30. To have patellar dressing changed now and daily with application of Santyl. Continues on 3 IV and 1 po antibiotic. I spoke with Dr. Maguire regarding the Topamax. I will be contacting an hammerer regarding eye exam, carla. a check of intraocular pressure. Dr. Maguire also reminded us that Topamax can cause kidney and gb stones, and he recommended ultrasound check of this. However, since the patient does not make urine, kidney stones may not form. I will check with Dr. Guadarrama on this. Will hold on doing blood work to avoid excessive loss. She has been stable. Objective - Vital Signs/Intake and Output Vital Signs (last 24 hours): Temp Pulse Resp BP Pulse Ox 97.7 F 97 H 18 118/81 97 01/28/17 16:14 01/28/17 16:14 01/28/17 16:14 01/28/17 16:14 01/28/17 16:14 - Medications Medications: Current Medications Acetaminophen (Tylenol 325mg Tab) 650 mg PO Q4 PRN PRN Reason: Fever >100.4 F Last Admin: 12/26/16 19:40 Dose: 650 mg Acetaminophen (Tylenol 325mg Tab) 650 mg PO Q4 PRN PRN Reason: Pain, moderate (4-7) Last Admin: 01/20/17 11:28 Dose: 650 mg Apixaban (Eliquis) 5 mg PO BID [facility] PRN Reason: Protocol Last Admin: 01/28/17 16:12 Dose: 5 mg Aspirin (Ecotrin) 81 mg PO DAILY [facility] Last Admin: 01/28/17 09:30 Dose: 81 mg Atorvastatin Calcium (Lipitor) 40 mg PO DAILY [facility] Last Admin: 01/28/17 09:31 Dose: 40 mg Calcium Carbonate (Oscal) 500 mg PO BIDWM [facility] Last Admin: 01/28/17 16:14 Dose: 500 mg Collagenase (Santyl) 1 applic TOP DAILY [facility] Last Admin: 01/28/17 09:33 Dose: 1 applic Diphenhydramine HCl (Benadryl) 25 mg PO Q6 PRN PRN Reason: Itching / Pruritus Last Admin: 12/17/16 09:53 Dose: 25 mg Docusate Sodium (Colace) 100 mg PO BID [facility] Last Admin: 01/28/17 16:13 Dose: 100 mg Epoetin Tha (Procrit) 4,000 unit [place] [facility] Last Admin: 01/27/17 14:39 Dose: 4,000 unit Ergocalciferol (Drisdol 50,000 Intl Units Cap) 1 cap PO WED [facility] Last Admin: 01/22/17 12:54 Dose: 1 cap Fluconazole (Diflucan) 100 mg PO DAILY [facility] Last Admin: 01/28/17 09:32 Dose: 100 mg Gabapentin (Neurontin) 300 mg PO TID [facility] Last Admin: 01/28/17 16:13 Dose: 300 mg Guaifenesin/Dextromethorphan (Robitussin Dm) 10 ml PO Q4 PRN PRN Reason: Cough Last Admin: 01/13/17 10:51 Dose: 10 ml Hydrocortisone (Anusol-Hc) 1 applic [place] BID PRN PRN Reason: Inflammation Hydromorphone HCl (Dilaudid) 1 mg IVP Q4H PRN PRN Reason: Pain, severe (8-10) Last Admin: 01/28/17 16:10 Dose: 1 mg Sodium Chloride (Sodium Chloride 0.45%) 500 mls @ 10 mls/hr IV .Q24H [facility] Last Admin: 01/28/17 16:14 Dose: Not Given Ceftazidime/Avibactam 0.94 gm/ (Sodium Chloride) 100 mls @ 50 mls/hr IV QOTHERDAY@2200 [facility] Last Admin: 01/26/17 21:38 Dose: 50 mls/hr Daptomycin 650 mg/ Sodium (Chloride) 100 mls @ 100 mls/hr [place]PB [facility] Stop: 02/19/17 09:59 Last Admin: 01/27/17 20:23 Dose: 100 mls/hr Gentamicin Sulfate/Sodium Chloride (Gentamicin 60mg/50ml Ns) 60 mg in 50 mls @ 50 mls/hr [place]PB [facility] Last Admin: 01/27/17 20:24 Dose: 50 mls/hr Insulin Detemir (Levemir) 30 units SC HS [facility] Last Admin: 01/27/17 21:43 Dose: 30 units Insulin Human Lispro (Humalog) 10 units SC ACTID [facility] Last Admin: 01/28/17 16:16 Dose: 10 units Levalbuterol HCl (Xopenex) 0.63 mg INH RQ8 PRN PRN Reason: Shortness of Breath Metoprolol Tartrate (Lopressor) 25 mg PO Q12 [facility] Last Admin: 01/28/17 09:30 Dose: 25 mg Nystatin (Nystop Topical Powder) 1 applic TOP BID [facility] Last Admin: 01/28/17 16:13 Dose: Not Given Ondansetron HCl (Zofran Inj) 4 mg IVP Q6 PRN PRN Reason: Nausea/Vomiting Last Admin: 09/19/16 10:26 Dose: 4 mg Pantoprazole Sodium (Protonix Ec Tab) 40 mg PO DAILY [facility] Last Admin: 01/28/17 09:31 Dose: 40 mg Repaglinide (Prandin) 2 mg PO TIDAC [facility] Last Admin: 01/28/17 16:12 Dose: 2 mg Sennosides (Senokot Tab) 25.8 mg PO HS [facility] Last Admin: 01/27/17 21:42 Dose: 25.8 mg Sevelamer HCl (Renagel) 1,600 mg PO TIDWM [facility] Last Admin: 01/28/17 16:12 Dose: 1,600 mg Simethicone (Mylicon Chew Tab) 80 mg PO Q4H PRN PRN Reason: flatulence or "gassy feeling:" Last Admin: 01/07/17 16:57 Dose: 80 mg Topiramate (Topamax) 50 mg PO BID [facility] Last Admin: 01/28/17 16:12 Dose: 50 mg Vitamin B Complex/Vit C/Folic Acid (Nephro-Ajay) 1 tab PO DAILY [facility] Last Admin: 01/28/17 09:31 Dose: 1 tab - Labs Labs: 01/23/17 09:12 01/23/17 09:12 PT 15.3 Seconds (9.8-13.1) H 12/02/16 13:05 INR 1.4 (0.9-1.2) H 12/02/16 13:05 APTT 37.0 Seconds (25.6-37.1) 12/02/16 13:05 - Constitutional Appears: No Acute Distress - Head Exam Head Exam: NORMAL INSPECTION - Eye Exam Eye Exam: Normal appearance - ENT Exam ENT Exam: Mucous Membranes Moist - Neck Exam Neck Exam: Normal Inspection - Respiratory Exam Respiratory Exam: Clear to Ausculation Bilateral, NORMAL BREATHING PATTERN - Cardiovascular Exam Cardiovascular Exam: REGULAR RHYTHM, +S1, +S2 - GI/Abdominal Exam GI & Abdominal Exam: Soft - Extremities Exam Additional comments: Right BK wound vac and patellar dressings intact. Left femoral vein PICC line intact Hands are warm . - Neurological Exam Neurological Exam: Alert, CN II-XII Intact, Oriented x3 - Psychiatric Exam Psychiatric exam: Normal Affect, Normal Mood - Skin Skin Exam: Dry, Normal Color, Warm Assessment and Plan (1) Status post below knee amputation of right lower extremity Assessment & Plan: Doing OK. Continue present treatment and prescriptions. Status: Acute (2) ESRD (end stage renal disease) on dialysis Status: Chronic (3) DM type 2 (diabetes mellitus, type 2) Status: Chronic (4) Peripheral arterial occlusive disease Status: Chronic (5) Coagulopathy Status: Chronic (6) Seizure disorder Assessment & Plan: SEE SUBJECTIVE Status: Acute
--- NOTE | 2017-01-28 20:09 | PN ---
DATE: ENDOCRINE FOLLOWUP NOTE Room 661. This is a 46-year-old female with recent uncontrolled type 2 insulin-requiring diabetes mellitus, who developed recent hyperglycemic accelerations. Her glycemic values are fluctuating, but much improved at this time, and the latest glucose levels have ranged from 124 to 174 to 210 mg/dL. Her latest chemistries shows a BUN of 57, sodium 137, potassium 4.7, chloride of 100, glucose 137, creatinine 7.2. So at this time, we will continue with the same basal and bolus with Levemir given as 30 units subcutaneous at bedtime daily as ordered. We will continue the Humalog given as 10 units subcutaneous t.i.d. before meals as ordered. We will obtain serial chemistries and supplement accordingly as needed. We will follow with you. Irene Ambrose MD
[2017-01-28] MEDS: Insulin Detemir 100 Units/ml Inj SC SCH (22:19)
--- NOTE | 2017-01-28 23:37 | CP.PCM.PN ---
Subjective - Date & Time of Evaluation Date of Evaluation: 01/28/17 Time of Evaluation: 20:40 - Subjective Subjective: Patient condition is discussed with Dr Thomas. She is concerned about a Urinary Stone that might be causing low urine output. She will have Ultrasonography of her kidneys and the urinary system and the Gall Bladder and the abdomen to R/O Seizures. She will be seen by Ophthalmology to R/o Glaucoma. The Stones and Glaucoma are potential side effects of Topamax. Patient is awake, alert, oriented, moving with help. She has no seizures reported. She is receiving Hemodialysis as scheduled M,W,F. V.S are controlled. Objective - Vital Signs/Intake and Output Vital Signs (last 24 hours): Temp Pulse Resp BP Pulse Ox 97.7 F 90 18 99/74 L 97 01/28/17 16:14 01/28/17 21:30 01/28/17 16:14 01/28/17 21:30 01/28/17 16:14 - Medications Medications: Current Medications Acetaminophen (Tylenol 325mg Tab) 650 mg PO Q4 PRN PRN Reason: Fever >100.4 F Last Admin: 12/26/16 19:40 Dose: 650 mg Acetaminophen (Tylenol 325mg Tab) 650 mg PO Q4 PRN PRN Reason: Pain, moderate (4-7) Last Admin: 01/20/17 11:28 Dose: 650 mg Apixaban (Eliquis) 5 mg PO BID [facility] PRN Reason: Protocol Last Admin: 01/28/17 16:12 Dose: 5 mg Aspirin (Ecotrin) 81 mg PO DAILY [facility] Last Admin: 01/28/17 09:30 Dose: 81 mg Atorvastatin Calcium (Lipitor) 40 mg PO DAILY [facility] Last Admin: 01/28/17 09:31 Dose: 40 mg Calcium Carbonate (Oscal) 500 mg PO BIDWM [facility] Last Admin: 01/28/17 16:14 Dose: 500 mg Collagenase (Santyl) 1 applic TOP DAILY [facility] Last Admin: 01/28/17 09:33 Dose: 1 applic Diphenhydramine HCl (Benadryl) 25 mg PO Q6 PRN PRN Reason: Itching / Pruritus Last Admin: 12/17/16 09:53 Dose: 25 mg Docusate Sodium (Colace) 100 mg PO BID [facility] Last Admin: 01/28/17 16:13 Dose: 100 mg Epoetin Tha (Procrit) 4,000 [place] [facility] [place] Last Admin: 01/27/17 14:39 Dose: 4,000 unit Ergocalciferol (Drisdol 50,000 Intl Units Cap) 1 cap PO WED [facility] Last Admin: 01/22/17 12:54 Dose: 1 cap Fluconazole (Diflucan) 100 mg PO DAILY [facility] Last Admin: 01/28/17 09:32 Dose: 100 mg Gabapentin (Neurontin) 300 mg PO TID [facility] Last Admin: 01/28/17 16:13 Dose: 300 mg Guaifenesin/Dextromethorphan (Robitussin Dm) 10 ml PO Q4 PRN PRN Reason: Cough Last Admin: 01/13/17 10:51 Dose: 10 ml Hydrocortisone (Anusol-Hc) 1 applic [place] BID PRN PRN Reason: Inflammation Hydromorphone HCl (Dilaudid) 1 mg IVP Q4H PRN PRN Reason: Pain, severe (8-10) Last Admin: 01/28/17 20:36 Dose: 1 mg Sodium Chloride (Sodium Chloride 0.45%) 500 mls @ 10 mls/hr IV .Q24H [facility] Last Admin: 01/28/17 16:14 Dose: Not Given Ceftazidime/Avibactam 0.94 gm/ (Sodium Chloride) 100 mls @ 50 mls/hr IV QOTHERDAY@2200 [facility] Last Admin: 01/28/17 22:17 Dose: 50 mls/hr Daptomycin 650 mg/ Sodium (Chloride) 100 mls @ 100 mls/hr [place]PB [facility] Stop: 02/19/17 09:59 Last Admin: 01/27/17 20:23 Dose: 100 mls/hr Gentamicin Sulfate/Sodium Chloride (Gentamicin 60mg/50ml Ns) 60 mg in 50 mls @ 50 mls/hr [place] [facility] Last Admin: 01/27/17 20:24 Dose: 50 mls/hr Insulin Detemir (Levemir) 30 units SC HS [facility] Last Admin: 01/28/17 22:19 Dose: 30 units Insulin Human Lispro (Humalog) 10 units SC ACTID [facility] Last Admin: 01/28/17 16:16 Dose: 10 units Levalbuterol HCl (Xopenex) 0.63 mg INH RQ8 PRN PRN Reason: Shortness of Breath Metoprolol Tartrate (Lopressor) 25 mg PO Q12 [facility] Last Admin: 01/28/17 21:30 Dose: 25 mg Nystatin (Nystop Topical Powder) 1 applic TOP BID [facility] Last Admin: 01/28/17 16:13 Dose: Not Given Ondansetron HCl (Zofran Inj) 4 mg IVP Q6 PRN PRN Reason: Nausea/Vomiting Last Admin: 09/19/16 10:26 Dose: 4 mg Pantoprazole Sodium (Protonix Ec Tab) 40 mg PO DAILY [facility] Last Admin: 01/28/17 09:31 Dose: 40 mg Repaglinide (Prandin) 2 mg PO TIDAC [facility] Last Admin: 01/28/17 16:12 Dose: 2 mg Sennosides (Senokot Tab) 25.8 mg PO HS [facility] Last Admin: 01/28/17 22:18 Dose: 25.8 mg Sevelamer HCl (Renagel) 1,600 mg PO TIDWM [facility] Last Admin: 01/28/17 16:12 Dose: 1,600 mg Simethicone (Mylicon Chew Tab) 80 mg PO Q4H PRN PRN Reason: flatulence or "gassy feeling:" Last Admin: 01/07/17 16:57 Dose: 80 mg Topiramate (Topamax) 50 mg PO BID [facility] Last Admin: 01/28/17 16:12 Dose: 50 mg Vitamin B Complex/Vit C/Folic Acid (Nephro-Ajay) 1 tab PO DAILY [facility] Last Admin: 01/28/17 09:31 Dose: 1 tab - Labs Labs: 01/23/17 09:12 01/23/17 09:12 PT 15.3 Seconds (9.8-13.1) H 12/02/16 13:05 INR 1.4 (0.9-1.2) H 12/02/16 13:05 APTT 37.0 Seconds (25.6-37.1) 12/02/16 13:05 Assessment and Plan (1) Diabetes Status: Chronic (2) ESRD (end stage renal disease) Status: Chronic (3) Cellulitis of leg Status: Chronic (4) Hyperlipidemia Status: Chronic (5) Back pain Status: Acute (6) Bacteremia due to Gram-negative bacteria Status: Acute (7) PVD (peripheral vascular disease) Status: Chronic (8) Osteomyelitis of right leg Status: Acute
[2017-01-29] MEDS: Insulin Lispro (humaLOG) 100 Units/ml Inj SC SCH ×3 (07:51→17:29)
[2017-01-29] MEDS: Multivitamin Vitamin B Complex (Nephro-Vite) Tab PO SCH (08:18)
[2017-01-29] MEDS: Ergocalciferol 50,000 Intl Units Cap PO SCH (08:19)
[2017-01-29] MEDS: Pantoprazole 40 mg EC Tab PO SCH (08:20)
[2017-01-29] MEDS: Santyl Collagenase OINTMENT TOP SCH (08:20)
[2017-01-29] MEDS: Epoetin Alfa 4000 UNIT/ML Inj IV SCH (08:38)
--- NOTE | 2017-01-29 08:51 | CP.PCM.PN ---
Subjective - Date & Time of Evaluation Date of Evaluation: 01/29/17 Time of Evaluation: 08:47 - Subjective Subjective: Patient and bed appeared to be comfortable Hemodialysis schedule shortly Order in the record with her sodium 138 and potassium 2 mEq and ultrafiltration about 3000 mL as tolerated Objective - Vital Signs/Intake and Output Vital Signs (last 24 hours): Temp Pulse Resp BP Pulse Ox 97.8 F 99 H 18 108/62 95 01/29/17 07:40 01/29/17 07:40 01/29/17 07:40 01/29/17 07:40 01/29/17 07:40 - Medications Medications: Current Medications Acetaminophen (Tylenol 325mg Tab) 650 mg PO Q4 PRN PRN Reason: Fever >100.4 F Last Admin: 12/26/16 19:40 Dose: 650 mg Acetaminophen (Tylenol 325mg Tab) 650 mg PO Q4 PRN PRN Reason: Pain, moderate (4-7) Last Admin: 01/20/17 11:28 Dose: 650 mg Apixaban (Eliquis) 5 mg PO BID [facility] PRN Reason: Protocol Last Admin: 01/29/17 08:17 Dose: 5 mg Aspirin (Ecotrin) 81 mg PO DAILY [facility] Last Admin: 01/29/17 08:17 Dose: 81 mg Atorvastatin Calcium (Lipitor) 40 mg PO DAILY [facility] Last Admin: 01/29/17 08:16 Dose: 40 mg Calcium Carbonate (Oscal) 500 mg PO BIDWM [facility] Last Admin: 01/29/17 08:16 Dose: 500 mg Collagenase (Santyl) 1 applic TOP DAILY [facility] Last Admin: 01/29/17 08:20 Dose: 1 applic Diphenhydramine HCl (Benadryl) 25 mg PO Q6 PRN PRN Reason: Itching / Pruritus Last Admin: 12/17/16 09:53 Dose: 25 mg Docusate Sodium (Colace) 100 mg PO BID [facility] Last Admin: 01/29/17 08:19 Dose: 100 mg Epoetin Tha (Procrit) 4,000 unit IV MWF [facility] Last Admin: 01/29/17 08:38 Dose: 4,000 unit Ergocalciferol (Drisdol 50,000 Intl Units Cap) 1 cap PO WED [facility] Last Admin: 01/29/17 08:19 Dose: 1 cap Fluconazole (Diflucan) 100 mg PO DAILY [facility] Last Admin: 01/29/17 08:20 Dose: 100 mg Gabapentin (Neurontin) 300 mg PO TID [facility] Last Admin: 01/29/17 08:16 Dose: 300 mg Guaifenesin/Dextromethorphan (Robitussin Dm) 10 ml PO Q4 PRN PRN Reason: Cough Last Admin: 01/13/17 10:51 Dose: 10 ml Hydrocortisone (Anusol-Hc) 1 applic [place] BID PRN PRN Reason: Inflammation Hydromorphone HCl (Dilaudid) 1 mg IVP Q4H PRN PRN Reason: Pain, severe (8-10) Last Admin: 01/29/17 08:32 Dose: 1 mg Sodium Chloride (Sodium Chloride 0.45%) 500 mls @ 10 mls/hr IV .Q24H [facility] Last Admin: 01/28/17 16:14 Dose: Not Given Ceftazidime/Avibactam 0.94 gm/ (Sodium Chloride) 100 mls @ 50 mls/hr IV QOTHERDAY@2200 [facility] Last Admin: 01/28/17 22:17 Dose: 50 mls/hr Daptomycin 650 mg/ Sodium (Chloride) 100 mls @ 100 mls/hr IVPB [facility] [place] Stop: 02/19/17 09:59 Last Admin: 01/27/17 20:23 Dose: 100 mls/hr Gentamicin Sulfate/Sodium Chloride (Gentamicin 60mg/50ml Ns) 60 mg in 50 mls @ 50 mls/hr IVPB [facility] [place] Last Admin: 01/27/17 20:24 Dose: 50 mls/hr Insulin Detemir (Levemir) 30 units SC HS [facility] Last Admin: 01/28/17 22:19 Dose: 30 units Insulin Human Lispro (Humalog) 10 units SC ACTID [facility] Last Admin: 01/29/17 07:51 Dose: Not Given Levalbuterol HCl (Xopenex) 0.63 mg INH RQ8 PRN PRN Reason: Shortness of Breath Metoprolol Tartrate (Lopressor) 25 mg PO Q12 [facility] Last Admin: 01/29/17 08:17 Dose: Not Given Nystatin (Nystop Topical Powder) 1 applic TOP BID [facility] Last Admin: 01/29/17 08:18 Dose: 1 applic Ondansetron HCl (Zofran Inj) 4 mg IVP Q6 PRN PRN Reason: Nausea/Vomiting Last Admin: 09/19/16 10:26 Dose: 4 mg Pantoprazole Sodium (Protonix Ec Tab) 40 mg PO DAILY [facility] Last Admin: 01/29/17 08:20 Dose: 40 mg Repaglinide (Prandin) 2 mg PO TIDAC [facility] Last Admin: 01/29/17 08:18 Dose: 2 mg Sennosides (Senokot Tab) 25.8 mg PO HS [facility] Last Admin: 01/28/17 22:18 Dose: 25.8 mg Sevelamer HCl (Renagel) 1,600 mg PO TIDWM [facility] Last Admin: 01/29/17 08:15 Dose: 1,600 mg Simethicone (Mylicon Chew Tab) 80 mg PO Q4H PRN PRN Reason: flatulence or "gassy feeling:" Last Admin: 01/07/17 16:57 Dose: 80 mg Topiramate (Topamax) 50 mg PO BID [facility] Last Admin: 01/29/17 08:19 Dose: 50 mg Vitamin B Complex/Vit C/Folic Acid (Nephro-Ajay) 1 tab PO DAILY [facility] Last Admin: 01/29/17 08:18 Dose: 1 tab - Labs Labs: 01/23/17 09:12 01/23/17 09:12 PT 15.3 Seconds (9.8-13.1) H 12/02/16 13:05 INR 1.4 (0.9-1.2) H 12/02/16 13:05 APTT 37.0 Seconds (25.6-37.1) 12/02/16 13:05 - Constitutional Appears: No Acute Distress - ENT Exam ENT Exam: Mucous Membranes Moist - Respiratory Exam Respiratory Exam: NORMAL BREATHING PATTERN. absent: Chest Wall Tenderness - GI/Abdominal Exam GI & Abdominal Exam: Normal Bowel Sounds - Extremities Exam Extremities Exam: absent: Calf Tenderness - Back Exam Back Exam: absent: CVA tenderness (L), CVA tenderness (R) - Neurological Exam Neurological Exam: Alert Assessment and Plan (1) ESRD (end stage renal disease) Assessment & Plan: Continue hemodialysis as scheduled MWF Antibiotics as per primary team To repeat serum phosphorus and PTH which has not been done in the past couple weeks The rest of the medical and surgical problem as noted was status post amputation and multiple surgery related to debridement and to wound infection. Status: Chronic (2) Cellulitis of leg Status: Chronic
--- NOTE | 2017-01-29 09:48 | CP.PCM.PN ---
Subjective - Date & Time of Evaluation Date of Evaluation: 01/29/17 Time of Evaluation: 09:44 - Subjective Subjective: Hemodialysis in progress now. Antibiotics to be given afterward. Earlier patient had burning pain in right patellar area - which she attributes to Santyl. She took IV Dilaudid, which caused brief hypotension, but now bp is normal. I will change order so patient can take po Dilaudid for moderate pain and iv Dilaudid for severe pain. I will be contacting ophthalmology for evaluation of ocular pressure (as a precaution while on Topamax). I will be discussing with Dr. Guadarrama the issue of renal and gall stones. Glucoses running 95 twice in previous 12 hours. Objective - Vital Signs/Intake and Output Vital Signs (last 24 hours): Temp Pulse Resp BP Pulse Ox 97.8 F 99 H 18 108/62 95 01/29/17 07:40 01/29/17 07:40 01/29/17 07:40 01/29/17 07:40 01/29/17 07:40 - Medications Medications: Current Medications Acetaminophen (Tylenol 325mg Tab) 650 mg PO Q4 PRN PRN Reason: Fever >100.4 F Last Admin: 12/26/16 19:40 Dose: 650 mg Acetaminophen (Tylenol 325mg Tab) 650 mg PO Q4 PRN PRN Reason: Pain, moderate (4-7) Last Admin: 01/20/17 11:28 Dose: 650 mg Apixaban (Eliquis) 5 mg PO BID [facility] PRN Reason: Protocol Last Admin: 01/29/17 08:17 Dose: 5 mg Aspirin (Ecotrin) 81 mg PO DAILY [facility] Last Admin: 01/29/17 08:17 Dose: 81 mg Atorvastatin Calcium (Lipitor) 40 mg PO DAILY [facility] Last Admin: 01/29/17 08:16 Dose: 40 mg Calcium Carbonate (Oscal) 500 mg PO BIDWM [facility] Last Admin: 01/29/17 08:16 Dose: 500 mg Collagenase (Santyl) 1 applic TOP DAILY [facility] Last Admin: 01/29/17 08:20 Dose: 1 applic Diphenhydramine HCl (Benadryl) 25 mg PO Q6 PRN PRN Reason: Itching / Pruritus Last Admin: 12/17/16 09:53 Dose: 25 mg Docusate Sodium (Colace) 100 mg PO BID [facility] Last Admin: 01/29/17 08:19 Dose: 100 mg Epoetin Tha (Procrit) 4,000 unit IV [facility] [place] Last Admin: 01/29/17 08:38 Dose: 4,000 unit Ergocalciferol (Drisdol 50,000 Intl Units Cap) 1 cap PO WED [facility] Last Admin: 01/29/17 08:19 Dose: 1 cap Fluconazole (Diflucan) 100 mg PO DAILY [facility] Last Admin: 01/29/17 08:20 Dose: 100 mg Gabapentin (Neurontin) 300 mg PO TID [facility] Last Admin: 01/29/17 08:16 Dose: 300 mg Guaifenesin/Dextromethorphan (Robitussin Dm) 10 ml PO Q4 PRN PRN Reason: Cough Last Admin: 01/13/17 10:51 Dose: 10 ml Hydrocortisone (Anusol-Hc) 1 applic IN BID PRN PRN Reason: Inflammation Hydromorphone HCl (Dilaudid) 1 mg IVP Q4H PRN PRN Reason: Pain, severe (8-10) Last Admin: 01/29/17 08:32 Dose: 1 mg Sodium Chloride (Sodium Chloride 0.45%) 500 mls @ 10 mls/hr IV .Q24H [facility] Last Admin: 01/28/17 16:14 Dose: Not Given Ceftazidime/Avibactam 0.94 gm/ (Sodium Chloride) 100 mls @ 50 mls/hr IV QOTHERDAY@2200 [facility] Last Admin: 01/28/17 22:17 Dose: 50 mls/hr Daptomycin 650 mg/ Sodium (Chloride) 100 mls @ 100 mls/hr IVPB [facility] [place] Stop: 02/19/17 09:59 Last Admin: 01/27/17 20:23 Dose: 100 mls/hr Gentamicin Sulfate/Sodium Chloride (Gentamicin 60mg/50ml Ns) 60 mg in 50 mls @ 50 mls/hr IVPB [facility] [place] Last Admin: 01/27/17 20:24 Dose: 50 mls/hr Insulin Detemir (Levemir) 30 units SC HS [facility] Last Admin: 01/28/17 22:19 Dose: 30 units Insulin Human Lispro (Humalog) 10 units SC ACTID [facility] Last Admin: 01/29/17 07:51 Dose: Not Given Levalbuterol HCl (Xopenex) 0.63 mg INH RQ8 PRN PRN Reason: Shortness of Breath Metoprolol Tartrate (Lopressor) 25 mg PO Q12 [facility] Last Admin: 01/29/17 08:17 Dose: Not Given Nystatin (Nystop Topical Powder) 1 applic TOP BID [facility] Last Admin: 01/29/17 08:18 Dose: 1 applic Ondansetron HCl (Zofran Inj) 4 mg IVP Q6 PRN PRN Reason: Nausea/Vomiting Last Admin: 09/19/16 10:26 Dose: 4 mg Pantoprazole Sodium (Protonix Ec Tab) 40 mg PO DAILY [facility] Last Admin: 01/29/17 08:20 Dose: 40 mg Repaglinide (Prandin) 2 mg PO TIDAC [facility] Last Admin: 01/29/17 08:18 Dose: 2 mg Sennosides (Senokot Tab) 25.8 mg PO HS [facility] Last Admin: 01/28/17 22:18 Dose: 25.8 mg Sevelamer HCl (Renagel) 1,600 mg PO TIDWM [facility] Last Admin: 01/29/17 08:15 Dose: 1,600 mg Simethicone (Mylicon Chew Tab) 80 mg PO Q4H PRN PRN Reason: flatulence or "gassy feeling:" Last Admin: 01/07/17 16:57 Dose: 80 mg Topiramate (Topamax) 50 mg PO BID [facility] Last Admin: 01/29/17 08:19 Dose: 50 mg Vitamin B Complex/Vit C/Folic Acid (Nephro-Ajay) 1 tab PO DAILY [facility] Last Admin: 01/29/17 08:18 Dose: 1 tab - Labs Labs: 01/23/17 09:12 01/23/17 09:12 PT 15.3 Seconds (9.8-13.1) H 12/02/16 13:05 INR 1.4 (0.9-1.2) H 12/02/16 13:05 APTT 37.0 Seconds (25.6-37.1) 12/02/16 13:05 - Constitutional Appears: No Acute Distress - Head Exam Head Exam: NORMAL INSPECTION - Eye Exam Eye Exam: Normal appearance - ENT Exam ENT Exam: Mucous Membranes Moist - Neck Exam Neck Exam: Normal Inspection Additional comments: Right subclavian Permacath intact and being used for HD. - Respiratory Exam Respiratory Exam: Clear to Ausculation Bilateral, NORMAL BREATHING PATTERN - Cardiovascular Exam Cardiovascular Exam: REGULAR RHYTHM, +S1, +S2 - GI/Abdominal Exam GI & Abdominal Exam: Soft - Extremities Exam Additional comments: Hands warm Dressing and wound vac in place RLE. L femoral PICC line intact. - Back Exam Back Exam: NORMAL INSPECTION - Neurological Exam Neurological Exam: Alert, CN II-XII Intact, Oriented x3 - Psychiatric Exam Psychiatric exam: Normal Affect, Normal Mood - Skin Skin Exam: Dry, Normal Color, Warm Assessment and Plan (1) Status post below knee amputation of right lower extremity Assessment & Plan: MAKING PROGRESS Status: Acute (2) ESRD (end stage renal disease) on dialysis Status: Chronic (3) DM type 2 (diabetes mellitus, type 2) Assessment & Plan: STABLE Status: Chronic (4) Peripheral arterial occlusive disease Status: Chronic (5) Coagulopathy Status: Chronic (6) Seizure disorder Assessment & Plan: SEE SUBJECTIVE Status: Acute
[2017-01-29] MEDS: Gentamicin 60mg/50ml NS 60 MG/50 ML BAG IVPB SCH (13:31)
--- NOTE | 2017-01-29 17:16 | PN ---
DATE: ENDOCRINOLOGY FOLLOWUP NOTE LOCATION: Room 661. SUBJECTIVE: This is a 46-year-old female with recent uncontrolled type 2 insulin-requiring diabetes now being followed closely for metabolic management. Her glycemic levels are fluctuating, but much improved at this time and the latest glucose levels have ranged from 95-142 and 174 mg/dL. Her latest chemistries showed a BUN of 57, sodium 137, potassium 4.7, chloride 100, CO2 20, glucose 137, and creatinine 7.0. So at this time, we will continue the same basal and bolus insulin regimen as ordered with Levemir given as 30 units subcutaneously at bedtime daily. We will continue the Humalog given as 10 units subcutaneously t.i.d. before meals as given. We will titrate incrementally as indicated to optimize metabolic control. We will we will follow and advise accordingly. Irene Ambrose MD
[2017-01-29] MEDS: Insulin Detemir 100 Units/ml Inj SC SCH (23:05)
[2017-01-30] MEDS: Multivitamin Vitamin B Complex (Nephro-Vite) Tab PO SCH (09:17)
[2017-01-30] MEDS: Insulin Lispro (humaLOG) 100 Units/ml Inj SC SCH ×3 (09:21→17:12)
[2017-01-30] MEDS: Pantoprazole 40 mg EC Tab PO SCH (09:22)
[2017-01-30] MEDS: Santyl Collagenase OINTMENT TOP SCH (09:26)
--- NOTE | 2017-01-30 09:56 | CP.PCM.PN ---
Subjective - Date & Time of Evaluation Date of Evaluation: 01/30/17 Time of Evaluation: 09:54 - Subjective Subjective: Patient is stable clinically Completed hemodialysis yesterday new lab test serum phosphorus 5.2 and serum PTH 164 all within target. Continue the same management and the same medication regarding secondary hyperparathyroidism and hyperphosphatemia calcitriol 0.25 g derrell Objective - Vital Signs/Intake and Output Vital Signs (last 24 hours): Temp Pulse Resp BP Pulse Ox 97.6 F 100 H 20 131/61 96 01/30/17 08:22 01/30/17 08:22 01/30/17 08:22 01/30/17 08:22 01/30/17 08:22 - Medications Medications: Current Medications Acetaminophen (Tylenol 325mg Tab) 650 mg PO Q4 PRN PRN Reason: Fever >100.4 F Last Admin: 12/26/16 19:40 Dose: 650 mg Acetaminophen (Tylenol 325mg Tab) 650 mg PO Q4 PRN PRN Reason: Pain, moderate (4-7) Last Admin: 01/20/17 11:28 Dose: 650 mg Apixaban (Eliquis) 5 mg PO BID [facility] PRN Reason: Protocol Last Admin: 01/30/17 09:16 Dose: 5 mg Aspirin (Ecotrin) 81 mg PO DAILY [facility] Last Admin: 01/30/17 09:20 Dose: 81 mg Atorvastatin Calcium (Lipitor) 40 mg PO DAILY [facility] Last Admin: 01/30/17 09:22 Dose: 40 mg Calcium Carbonate (Oscal) 500 mg PO BIDWM [facility] Last Admin: 01/30/17 09:17 Dose: 500 mg Collagenase (Santyl) 1 applic TOP DAILY [facility] Last Admin: 01/30/17 09:26 Dose: 1 applic Diphenhydramine HCl (Benadryl) 25 mg PO Q6 PRN PRN Reason: Itching / Pruritus Last Admin: 12/17/16 09:53 Dose: 25 mg Docusate Sodium (Colace) 100 mg PO BID [facility] Last Admin: 01/30/17 09:20 Dose: 100 mg Epoetin Tha (Procrit) 4,000 unit IV MWF [facility] Last Admin: 01/29/17 08:38 Dose: 4,000 unit Ergocalciferol (Drisdol 50,000 Intl Units Cap) 1 cap PO WED [facility] Last Admin: 01/29/17 08:19 Dose: 1 cap Fluconazole (Diflucan) 100 mg PO DAILY [facility] Last Admin: 01/30/17 09:19 Dose: 100 mg Gabapentin (Neurontin) 300 mg PO TID [facility] Last Admin: 01/30/17 09:16 Dose: 300 mg Guaifenesin/Dextromethorphan (Robitussin Dm) 10 ml PO Q4 PRN PRN Reason: Cough Last Admin: 01/13/17 10:51 Dose: 10 ml Hydrocortisone (Anusol-Hc) 1 applic NM BID PRN PRN Reason: Inflammation Hydromorphone HCl (Dilaudid) 1 mg IVP Q4H PRN PRN Reason: Pain, severe (8-10) Last Admin: 01/30/17 06:13 Dose: 1 mg Hydromorphone HCl (Dilaudid) 2 mg PO Q4 PRN PRN Reason: Pain, moderate (4-7) Sodium Chloride (Sodium Chloride 0.45%) 500 mls @ 10 mls/hr IV .Q24H [facility] Last Admin: 01/29/17 15:17 Dose: Not Given Ceftazidime/Avibactam 0.94 gm/ (Sodium Chloride) 100 mls @ 50 mls/hr IV QOTHERDAY@2200 [facility] Last Admin: 01/28/17 22:17 Dose: 50 mls/hr Daptomycin 650 mg/ Sodium (Chloride) 100 mls @ 100 mls/hr IVPB [facility] Stop: 02/19/17 09:59 Last Admin: 01/29/17 13:31 Dose: 100 mls/hr Gentamicin Sulfate/Sodium Chloride (Gentamicin 60mg/50ml Ns) 60 mg in 50 mls @ 50 mls/hr IVPB [facility] Last Admin: 01/29/17 13:31 Dose: 50 mls/hr Insulin Detemir (Levemir) 30 units SC HS [facility] Last Admin: 01/29/17 23:05 Dose: 30 units Insulin Human Lispro (Humalog) 10 units SC ACTID [facility] Last Admin: 01/30/17 09:21 Dose: 10 units Levalbuterol HCl (Xopenex) 0.63 mg INH RQ8 PRN PRN Reason: Shortness of Breath Metoprolol Tartrate (Lopressor) 25 mg PO Q12 [facility] Last Admin: 01/30/17 09:22 Dose: 25 mg Nystatin (Nystop Topical Powder) 1 applic TOP BID [facility] Last Admin: 01/30/17 09:16 Dose: 1 applic Ondansetron HCl (Zofran Inj) 4 mg IVP Q6 PRN PRN Reason: Nausea/Vomiting Last Admin: 09/19/16 10:26 Dose: 4 mg Pantoprazole Sodium (Protonix Ec Tab) 40 mg PO DAILY [facility] Last Admin: 01/30/17 09:22 Dose: 40 mg Phenylephrine HCl (Phenylephrine Opht 10% Soln) 1 drop OU Q5MIN [facility] Stop: 02/01/17 11:01 Repaglinide (Prandin) 2 mg PO TIDAC [facility] Last Admin: 01/30/17 09:17 Dose: 2 mg Sennosides (Senokot Tab) 25.8 mg PO HS [facility] Last Admin: 01/29/17 23:02 Dose: 25.8 mg Sevelamer HCl (Renagel) 1,600 mg PO TIDWM [facility] Last Admin: 01/30/17 09:16 Dose: 1,600 mg Simethicone (Mylicon Chew Tab) 80 mg PO Q4H PRN PRN Reason: flatulence or "gassy feeling:" Last Admin: 01/07/17 16:57 Dose: 80 mg Topiramate (Topamax) 50 mg PO BID [facility] Last Admin: 01/30/17 09:22 Dose: 50 mg Tropicamide (Mydriacyl 1% Opht Soln 15ml) 1 drop OU Q5MIN [facility] Stop: 02/01/17 09:16 Vitamin B Complex/Vit C/Folic Acid (Nephro-Ajay) 1 tab PO DAILY [facility] Last Admin: 01/30/17 09:17 Dose: 1 tab - Labs Labs: 01/23/17 09:12 01/23/17 09:12 PT 15.3 Seconds (9.8-13.1) H 12/02/16 13:05 INR 1.4 (0.9-1.2) H 12/02/16 13:05 APTT 37.0 Seconds (25.6-37.1) 12/02/16 13:05 Assessment and Plan (1) ESRD (end stage renal disease) Status: Chronic (2) Cellulitis of leg Status: Chronic
[2017-01-30] MEDS ORDERED: Phenylephrine 10% Opht Soln OU SCH (11:00)
[2017-01-30] MEDS: Phenylephrine 10% Opht Soln OU SCH ×3 (11:10→11:30)
[2017-01-30] MEDS: Tropicamide 1% Opht 150 DROP/15 ML OU SCH ×3 (11:15→11:35)
--- NOTE | 2017-01-30 19:11 | PN ---
ENDO FOLLOWUP NOTE DATE: LOCATION: Room 661. SUBJECTIVE: This is a 46-year-old female with uncontrolled and decompensated type 2 insulin-requiring diabetes with the resumption of her basal and bolus insulin regimen as given and is being followed closely for metabolic management. Her glucose values are ranging from 153 to 199 and 289 mg/dl. Her latest chemistry showed a BUN of 57, sodium 137, potassium 4.7, chloride 100, CO2 20, glucose 137 and creatinine 7.0. PLAN: So at this time, we will continue the same basal and bolus insulin regimen to allow for dose equilibration and keep her on the Levemir given as 30 units subcu at bedtime daily as ordered. We will continue the Humalog given as 10 units subcu t.i.d. before meals as given. We will titrate incremental as indicated to optimize metabolic control. We will follow and advise accordingly. Irene Ambrose MD
--- NOTE | 2017-01-30 20:04 | CP.PCM.PN ---
Subjective - Date & Time of Evaluation Date of Evaluation: 01/30/17 Time of Evaluation: 20:02 - Subjective Subjective: Dr. Guadarrama's note appreciated- Calcium/PTH being well managed. Dr. Evita Shepard has ordered CBC for tomorrow. I will add CMP and gentamicin level (trough). I will speak with him about whether Topamax can cause nephrolithiasis when there is no urine production ??? Dr. Ambrose's note appreciated . Glucoses a little high 153- 199, but we shall see how patient does on Levemir 30 units hs and Humalog [address] [place] Hernandez saw the patient today for ophthalmology consultation. There is no increase in intraocular pressure, which is good. Unfortunately, there is florid diabetic retinopathy which will require LASER therapy as soon as patient in out of acute inpatient care and in rehab. She was receiving such treatments in the past. We shall have to determine what will be the best approach. Dr. Hernandez can do this at his [place] facility, or the patient may choose to go to her [place] [facility] if such care can be arranged. More to follow on this... Dr. Doran will see the patient tomorrow to assess her right BK wound and the patellar wound. Meanwhile, patient continues on IV Ceftazidime/avibactam, gentamicin, and daptomycin and on po fluconazole. Physical therapy is proceeding well. The patient stood (assisted) at the bedside using her left BK prosthesis. She is also working on transfers from bed to wheelchair using the sliding board. I do not feel she is quite up to 3 hours per day of acute rehab., but that should come soon. I am waiting for the R Bk wound to heal. Dr. Maguire's notes appreciated. Patient to continue on Topamax for seizure disorder. Objective - Vital Signs/Intake and Output Vital Signs (last 24 hours): Temp Pulse Resp BP Pulse Ox 97.7 F 91 H 18 94/48 L 95 01/30/17 15:57 01/30/17 15:57 01/30/17 15:57 01/30/17 15:57 01/30/17 15:57 - Medications Medications: Current Medications Acetaminophen (Tylenol 325mg Tab) 650 mg PO Q4 PRN PRN Reason: Fever >100.4 F Last Admin: 12/26/16 19:40 Dose: 650 mg Acetaminophen (Tylenol 325mg Tab) 650 mg PO Q4 PRN PRN Reason: Pain, moderate (4-7) Last Admin: 01/20/17 11:28 Dose: 650 mg Apixaban (Eliquis) 5 mg PO BID [facility] PRN Reason: Protocol Last Admin: 01/30/17 17:13 Dose: 5 mg Aspirin (Ecotrin) 81 mg PO DAILY [facility] Last Admin: 01/30/17 09:20 Dose: 81 mg Atorvastatin Calcium (Lipitor) 40 mg PO DAILY [facility] Last Admin: 01/30/17 09:22 Dose: 40 mg Calcitriol (Rocaltrol) 0.25 mcg PO DAILY [facility] Last Admin: 01/30/17 11:58 Dose: 0.25 mcg Calcium Carbonate (Oscal) 500 mg PO BIDWM [facility] Last Admin: 01/30/17 17:15 Dose: 500 mg Collagenase (Santyl) 1 applic TOP DAILY [facility] Last Admin: 01/30/17 09:26 Dose: 1 applic Diphenhydramine HCl (Benadryl) 25 mg PO Q6 PRN PRN Reason: Itching / Pruritus Last Admin: 12/17/16 09:53 Dose: 25 mg Docusate Sodium (Colace) 100 mg PO BID [facility] Last Admin: 01/30/17 17:14 Dose: 100 mg Epoetin Tha (Procrit) 4,000 unit IV MWF [facility] Last Admin: 01/29/17 08:38 Dose: 4,000 unit Ergocalciferol (Drisdol 50,000 Intl Units Cap) 1 cap PO WED [facility] Last Admin: 01/29/17 08:19 Dose: 1 cap Fluconazole (Diflucan) 100 mg PO DAILY [facility] Last Admin: 01/30/17 09:19 Dose: 100 mg Gabapentin (Neurontin) 300 mg PO TID [facility] Last Admin: 01/30/17 17:13 Dose: 300 mg Guaifenesin/Dextromethorphan (Robitussin Dm) 10 ml PO Q4 PRN PRN Reason: Cough Last Admin: 01/13/17 10:51 Dose: 10 ml Hydrocortisone (Anusol-Hc) 1 applic [place] BID PRN PRN Reason: Inflammation Hydromorphone HCl (Dilaudid) 1 mg IVP Q4H PRN PRN Reason: Pain, severe (8-10) Last Admin: 01/30/17 17:30 Dose: 1 mg Hydromorphone HCl (Dilaudid) 2 mg PO Q4 PRN PRN Reason: Pain, moderate (4-7) Sodium Chloride (Sodium Chloride 0.45%) 500 mls @ 10 mls/hr IV .Q24H [facility] Last Admin: 01/30/17 14:35 Dose: 10 mls/hr Ceftazidime/Avibactam 0.94 gm/ (Sodium Chloride) 100 mls @ 50 mls/hr IV QOTHERDAY@2200 [facility] Last Admin: 01/28/17 22:17 Dose: 50 mls/hr Daptomycin 650 mg/ Sodium (Chloride) 100 mls @ 100 mls/hr IVPB [facility] Stop: 02/19/17 09:59 Last Admin: 01/29/17 13:31 Dose: 100 mls/hr Gentamicin Sulfate/Sodium Chloride (Gentamicin 60mg/50ml Ns) 60 mg in 50 mls @ 50 mls/hr IVPB [facility] Last Admin: 01/29/17 13:31 Dose: 50 mls/hr Insulin Detemir (Levemir) 30 units SC HS [facility] Last Admin: 01/29/17 23:05 Dose: 30 units Insulin Human Lispro (Humalog) 10 units SC ACTID [facility] Last Admin: 01/30/17 17:12 Dose: 10 units Levalbuterol HCl (Xopenex) 0.63 mg INH RQ8 PRN PRN Reason: Shortness of Breath Metoprolol Tartrate (Lopressor) 25 mg PO Q12 [facility] Last Admin: 01/30/17 09:22 Dose: 25 mg Nystatin (Nystop Topical Powder) 1 applic TOP BID [facility] Last Admin: 01/30/17 17:15 Dose: 1 applic Ondansetron HCl (Zofran Inj) 4 mg IVP Q6 PRN PRN Reason: Nausea/Vomiting Last Admin: 09/19/16 10:26 Dose: 4 mg Pantoprazole Sodium (Protonix Ec Tab) 40 mg PO DAILY [facility] Last Admin: 01/30/17 09:22 Dose: 40 mg Phenylephrine HCl (Phenylephrine Opht 10% Soln) 1 drop OU Q5MIN [facility] Stop: 02/01/17 11:16 Last Admin: 01/30/17 11:30 Dose: 1 drop Repaglinide (Prandin) 2 mg PO TIDAC [facility] Last Admin: 01/30/17 17:16 Dose: 2 mg Sennosides (Senokot Tab) 25.8 mg PO HS [facility] Last Admin: 01/29/17 23:02 Dose: 25.8 mg Sevelamer HCl (Renagel) 1,600 mg PO TIDWM [facility] Last Admin: 01/30/17 17:13 Dose: 1,600 mg Simethicone (Mylicon Chew Tab) 80 mg PO Q4H PRN PRN Reason: flatulence or "gassy feeling:" Last Admin: 01/07/17 16:57 Dose: 80 mg Topiramate (Topamax) 50 mg PO BID [facility] Last Admin: 01/30/17 17:14 Dose: 50 mg Tropicamide (Mydriacyl 1% Opht Soln 15ml) 1 drop OU Q5MIN [facility] Stop: 02/01/17 09:16 Last Admin: 01/30/17 11:35 Dose: 1 drop Vitamin B Complex/Vit C/Folic Acid (Nephro-Ajay) 1 tab PO DAILY [facility] Last Admin: 01/30/17 09:17 Dose: 1 tab - Labs Labs: 01/23/17 09:12 01/23/17 09:12 PT 15.3 Seconds (9.8-13.1) H 12/02/16 13:05 INR 1.4 (0.9-1.2) H 12/02/16 13:05 APTT 37.0 Seconds (25.6-37.1) 12/02/16 13:05 - Constitutional Appears: No Acute Distress - Head Exam Head Exam: NORMAL INSPECTION - Eye Exam Eye Exam: Normal appearance - ENT Exam ENT Exam: Mucous Membranes Moist - Neck Exam Neck Exam: Normal Inspection Additional comments: Right subclavian Permacath intact. No nodes or thyromegaly. - Respiratory Exam Respiratory Exam: Clear to Ausculation Bilateral, NORMAL BREATHING PATTERN - Cardiovascular Exam Cardiovascular Exam: REGULAR RHYTHM, +S1, +S2 - GI/Abdominal Exam GI & Abdominal Exam: Soft, Normal Bowel Sounds - Extremities Exam Additional comments: Hands warm. L residual limb warm and without lesions. L femoral vein PICC line intact. R BK wound vac in place and patella dressing intact. - Back Exam Back Exam: NORMAL INSPECTION - Neurological Exam Neurological Exam: Alert, Awake, CN II-XII Intact Neuro motor strength exam: Left Upper Extremity: 4, Right Upper Extremity: 4, Left Lower Extremity: 4, Right Lower Extremity: 4 - Psychiatric Exam Psychiatric exam: Normal Affect, Normal Mood - Skin Skin Exam: Dry, Normal Color, Warm Assessment and Plan (1) Status post below knee amputation of right lower extremity Assessment & Plan: Making progress in healing and physical therapy. Await re-evaluation by Dr. Doran. Continue present antibiotics. Check CBC, CMP, gentamicin levels tomorrow. Status: Acute (2) ESRD (end stage renal disease) on dialysis Assessment & Plan: stable Status: Chronic (3) DM type 2 (diabetes mellitus, type 2) Assessment & Plan: Working on reaching ideal blood glucose levels. Severe diabetic retinopathy - will require treatment as soon as feasible. Status: Chronic (4) Peripheral arterial occlusive disease Status: Chronic (5) Coagulopathy Assessment & Plan: No bleeding and no clotting - on Eliquis and aspirin. Status: Chronic (6) Seizure disorder Assessment & Plan: Controlled. Status: Acute
[2017-01-30] MEDS: Insulin Detemir 100 Units/ml Inj SC SCH (21:50)
--- NOTE | 2017-01-30 23:29 | CP.PCM.PN ---
Subjective - Date & Time of Evaluation Date of Evaluation: 01/30/17 Time of Evaluation: 20:35 - Subjective Subjective: Ophthalmology consult shows Retinopathy and the need for Laser Therapy after discharge, as she had the same problem of Diabetic Retinopathy in the Past. Her Eye ball Pressure is normal. She has no seizures on Topamax. She is receiving Hemodialysis as routine. Her Blood Glucose is fluctuating and she is receiving appropriate care by Dr Ambrose of Endocrinology. She has high PTH as tested by Nephrology Dr Volodymyr Guadarrama. Objective - Vital Signs/Intake and Output Vital Signs (last 24 hours): Temp Pulse Resp BP Pulse Ox 97.7 F 89 18 114/43 L 95 01/30/17 15:57 01/30/17 21:36 01/30/17 15:57 01/30/17 21:36 01/30/17 15:57 - Medications Medications: Current Medications Acetaminophen (Tylenol 325mg Tab) 650 mg PO Q4 PRN PRN Reason: Fever >100.4 F Last Admin: 12/26/16 19:40 Dose: 650 mg Acetaminophen (Tylenol 325mg Tab) 650 mg PO Q4 PRN PRN Reason: Pain, moderate (4-7) Last Admin: 01/20/17 11:28 Dose: 650 mg Apixaban (Eliquis) 5 mg PO BID [facility] PRN Reason: Protocol Last Admin: 01/30/17 17:13 Dose: 5 mg Aspirin (Ecotrin) 81 mg PO DAILY [facility] Last Admin: 01/30/17 09:20 Dose: 81 mg Atorvastatin Calcium (Lipitor) 40 mg PO DAILY [facility] Last Admin: 01/30/17 09:22 Dose: 40 mg Calcitriol (Rocaltrol) 0.25 mcg PO DAILY [facility] Last Admin: 01/30/17 11:58 Dose: 0.25 mcg Calcium Carbonate (Oscal) 500 mg PO BIDWM [facility] Last Admin: 01/30/17 17:15 Dose: 500 mg Collagenase (Santyl) 1 applic TOP DAILY [facility] Last Admin: 01/30/17 09:26 Dose: 1 applic Diphenhydramine HCl (Benadryl) 25 mg PO Q6 PRN PRN Reason: Itching / Pruritus Last Admin: 12/17/16 09:53 Dose: 25 mg Docusate Sodium (Colace) 100 mg PO BID [facility] Last Admin: 01/30/17 17:14 Dose: 100 mg Epoetin Tha (Procrit) 4,000 unit [place] [facility] [place] Admin: 01/29/17 08:38 Dose: 4,000 unit Ergocalciferol (Drisdol 50,000 Intl Units Cap) 1 cap PO WED [facility] Last Admin: 01/29/17 08:19 Dose: 1 cap Fluconazole (Diflucan) 100 mg PO DAILY [facility] Last Admin: 01/30/17 09:19 Dose: 100 mg Gabapentin (Neurontin) 300 mg PO TID [facility] Last Admin: 01/30/17 17:13 Dose: 300 mg Guaifenesin/Dextromethorphan (Robitussin Dm) 10 ml PO Q4 PRN PRN Reason: Cough Last Admin: 01/13/17 10:51 Dose: 10 ml Hydrocortisone (Anusol-Hc) 1 applic [place] BID PRN PRN Reason: Inflammation Hydromorphone HCl (Dilaudid) 1 mg IVP Q4H PRN PRN Reason: Pain, severe (8-10) Last Admin: 01/30/17 21:32 Dose: 1 mg Hydromorphone HCl (Dilaudid) 2 mg PO Q4 PRN PRN Reason: Pain, moderate (4-7) Sodium Chloride (Sodium Chloride 0.45%) 500 mls @ 10 mls/hr IV .Q24H [facility] Last Admin: 01/30/17 14:35 Dose: 10 mls/hr Ceftazidime/Avibactam 0.94 gm/ (Sodium Chloride) 100 mls @ 50 mls/hr IV QOTHERDAY@2200 [facility] Last Admin: 01/30/17 21:24 Dose: 50 mls/hr Daptomycin 650 mg/ Sodium (Chloride) 100 mls @ 100 mls/hr [place]PB [facility] [place]: 02/19/17 09:59 Last Admin: 01/29/17 13:31 Dose: 100 mls/hr Gentamicin Sulfate/Sodium Chloride (Gentamicin 60mg/50ml Ns) 60 mg in 50 mls @ 50 mls/hr [place]PB [facility] [place] Last Admin: 01/29/17 13:31 Dose: 50 mls/hr Insulin Detemir (Levemir) 30 units SC [facility] Last Admin: 01/30/17 21:50 Dose: 30 units Insulin Human Lispro (Humalog) 10 units SC ACTID [facility] Last Admin: 01/30/17 17:12 Dose: 10 units Levalbuterol HCl (Xopenex) 0.63 mg INH RQ8 PRN PRN Reason: Shortness of Breath Metoprolol Tartrate (Lopressor) 25 mg PO Q12 [facility] Last Admin: 01/30/17 21:36 Dose: 25 mg Nystatin (Nystop Topical Powder) 1 applic TOP BID [facility] Last Admin: 01/30/17 17:15 Dose: 1 applic Ondansetron HCl (Zofran Inj) 4 mg IVP Q6 PRN PRN Reason: Nausea/Vomiting Last Admin: 09/19/16 10:26 Dose: 4 mg Pantoprazole Sodium (Protonix Ec Tab) 40 mg PO DAILY [facility] Last Admin: 01/30/17 09:22 Dose: 40 mg Phenylephrine HCl (Phenylephrine Opht 10% Soln) 1 drop OU Q5MIN [facility] Stop: 02/01/17 11:16 Last Admin: 01/30/17 11:30 Dose: 1 drop Repaglinide (Prandin) 2 mg PO TIDAC [facility] Last Admin: 01/30/17 17:16 Dose: 2 mg Sennosides (Senokot Tab) 25.8 mg PO HS [facility] Last Admin: 01/30/17 21:48 Dose: 25.8 mg Sevelamer HCl (Renagel) 1,600 mg PO TIDWM [facility] Last Admin: 01/30/17 17:13 Dose: 1,600 mg Simethicone (Mylicon Chew Tab) 80 mg PO Q4H PRN PRN Reason: flatulence or "gassy feeling:" Last Admin: 01/07/17 16:57 Dose: 80 mg Topiramate (Topamax) 50 mg PO BID [facility] Last Admin: 01/30/17 17:14 Dose: 50 mg Tropicamide (Mydriacyl 1% Opht Soln 15ml) 1 drop OU Q5MIN [facility] Stop: 02/01/17 09:16 Last Admin: 01/30/17 11:35 Dose: 1 drop Vitamin B Complex/Vit C/Folic Acid (Nephro-Ajay) 1 tab PO DAILY [facility] Last Admin: 01/30/17 09:17 Dose: 1 tab - Labs Labs: 01/23/17 09:12 01/23/17 09:12 PT 15.3 Seconds (9.8-13.1) H 12/02/16 13:05 INR 1.4 (0.9-1.2) H 12/02/16 13:05 APTT 37.0 Seconds (25.6-37.1) 12/02/16 13:05 Assessment and Plan (1) Diabetes Assessment & Plan: Fluctuating Status: Chronic (2) ESRD (end stage renal disease) Status: Chronic (3) Cellulitis of leg Status: Chronic (4) Hyperlipidemia Status: Chronic (5) Back pain Status: Acute (6) Bacteremia due to Gram-negative bacteria Status: Acute (7) PVD (peripheral vascular disease) Status: Chronic (8) Osteomyelitis of right leg Assessment & Plan: Looks controlled. Status: Acute
--- NOTE | 2017-01-31 08:30 | CP.PCM.PN ---
Subjective - Date & Time of Evaluation Date of Evaluation: 01/31/17 Time of Evaluation: 08:25 - Subjective Subjective: Patient is awake and conscious and bed Eating very good Patient and very good mood Vital sign noted to be okay with a pulse rate around 95 and temperature normal Objective - Vital Signs/Intake and Output Vital Signs (last 24 hours): Temp Pulse Resp BP Pulse Ox 98.3 F 97 H 19 147/62 96 01/31/17 07:52 01/31/17 07:52 01/31/17 07:52 01/31/17 07:52 01/31/17 07:52 - Medications Medications: Current Medications Acetaminophen (Tylenol 325mg Tab) 650 mg PO Q4 PRN PRN Reason: Fever >100.4 F Last Admin: 12/26/16 19:40 Dose: 650 mg Acetaminophen (Tylenol 325mg Tab) 650 mg PO Q4 PRN PRN Reason: Pain, moderate (4-7) Last Admin: 01/20/17 11:28 Dose: 650 mg Apixaban (Eliquis) 5 mg PO BID [facility] PRN Reason: Protocol Last Admin: 01/30/17 17:13 Dose: 5 mg Aspirin (Ecotrin) 81 mg PO DAILY [facility] Last Admin: 01/30/17 09:20 Dose: 81 mg Atorvastatin Calcium (Lipitor) 40 mg PO DAILY [facility] Last Admin: 01/30/17 09:22 Dose: 40 mg Calcitriol (Rocaltrol) 0.25 mcg PO DAILY [facility] Last Admin: 01/30/17 11:58 Dose: 0.25 mcg Calcium Carbonate (Oscal) 500 mg PO BIDWM [facility] Last Admin: 01/30/17 17:15 Dose: 500 mg Collagenase (Santyl) 1 applic TOP DAILY [facility] Last Admin: 01/30/17 09:26 Dose: 1 applic Diphenhydramine HCl (Benadryl) 25 mg PO Q6 PRN PRN Reason: Itching / Pruritus Last Admin: 12/17/16 09:53 Dose: 25 mg Docusate Sodium (Colace) 100 mg PO BID [facility] Last Admin: 01/30/17 17:14 Dose: 100 mg Epoetin Tha (Procrit) 4,000 unit IV MWF [facility] Last Admin: 01/29/17 08:38 Dose: 4,000 unit Ergocalciferol (Drisdol 50,000 Intl Units Cap) 1 cap PO WED [facility] Last Admin: 01/29/17 08:19 Dose: 1 cap Fluconazole (Diflucan) 100 mg PO DAILY [facility] Last Admin: 01/30/17 09:19 Dose: 100 mg Gabapentin (Neurontin) 300 mg PO TID [facility] Last Admin: 01/30/17 17:13 Dose: 300 mg Guaifenesin/Dextromethorphan (Robitussin Dm) 10 ml PO Q4 PRN PRN Reason: Cough Last Admin: 01/13/17 10:51 Dose: 10 ml Hydrocortisone (Anusol-Hc) [address] BID PRN PRN Reason: Inflammation Hydromorphone HCl (Dilaudid) 1 mg IVP Q4H PRN PRN Reason: Pain, severe (8-10) Last Admin: 01/31/17 08:03 Dose: 1 mg Hydromorphone HCl (Dilaudid) 2 mg PO Q4 PRN PRN Reason: Pain, moderate (4-7) Sodium Chloride (Sodium Chloride 0.45%) 500 mls @ 10 mls/hr IV .Q24H [facility] Last Admin: 01/30/17 14:35 Dose: 10 mls/hr Ceftazidime/Avibactam 0.94 gm/ (Sodium Chloride) 100 mls @ 50 mls/hr IV QOTHERDAY@2200 [facility] Last Admin: 01/30/17 21:24 Dose: 50 mls/hr Daptomycin 650 mg/ Sodium (Chloride) 100 mls @ 100 mls/hr IVPB [facility] [place] Stop: 02/19/17 09:59 Last Admin: 01/29/17 13:31 Dose: 100 mls/hr Gentamicin Sulfate/Sodium Chloride (Gentamicin 60mg/50ml Ns) 60 mg in 50 mls @ 50 mls/hr IVPB [facility] [place] Last Admin: 01/29/17 13:31 Dose: 50 mls/hr Insulin Detemir (Levemir) 30 units SC HS [facility] Last Admin: 01/30/17 21:50 Dose: 30 units Insulin Human Lispro (Humalog) 10 units SC ACTID [facility] Last Admin: 01/30/17 17:12 Dose: 10 units Levalbuterol HCl (Xopenex) 0.63 mg INH RQ8 PRN PRN Reason: Shortness of Breath Metoprolol Tartrate (Lopressor) 25 mg PO Q12 [facility] Last Admin: 01/30/17 21:36 Dose: 25 mg Nystatin (Nystop Topical Powder) 1 applic TOP BID [facility] Last Admin: 01/30/17 17:15 Dose: 1 applic Ondansetron HCl (Zofran Inj) 4 mg IVP Q6 PRN PRN Reason: Nausea/Vomiting Last Admin: 09/19/16 10:26 Dose: 4 mg Pantoprazole Sodium (Protonix Ec Tab) 40 mg PO DAILY [facility] Last Admin: 01/30/17 09:22 Dose: 40 mg Phenylephrine HCl (Phenylephrine Opht 10% Soln) 1 drop OU Q5MIN [facility] Stop: 02/01/17 11:16 Last Admin: 01/30/17 11:30 Dose: 1 drop Repaglinide (Prandin) 2 mg PO TIDAC [facility] Last Admin: 01/30/17 17:16 Dose: 2 mg Sennosides (Senokot Tab) 25.8 mg PO HS [facility] Last Admin: 01/30/17 21:48 Dose: 25.8 mg Sevelamer HCl (Renagel) 1,600 mg PO TIDWM [facility] Last Admin: 01/30/17 17:13 Dose: 1,600 mg Simethicone (Mylicon Chew Tab) 80 mg PO Q4H PRN PRN Reason: flatulence or "gassy feeling:" Last Admin: 01/07/17 16:57 Dose: 80 mg Topiramate (Topamax) 50 mg PO BID [facility] Last Admin: 01/30/17 17:14 Dose: 50 mg Tropicamide (Mydriacyl 1% Opht Soln 15ml) 1 drop OU Q5MIN [facility] Stop: 02/01/17 09:16 Last Admin: 01/30/17 11:35 Dose: 1 drop Vitamin B Complex/Vit C/Folic Acid (Nephro-Ajay) 1 tab PO DAILY [facility] Last Admin: 01/30/17 09:17 Dose: 1 tab - Labs Labs: 01/23/17 09:12 01/23/17 09:12 PT 15.3 Seconds (9.8-13.1) H 12/02/16 13:05 INR 1.4 (0.9-1.2) H 12/02/16 13:05 APTT 37.0 Seconds (25.6-37.1) 12/02/16 13:05 - Constitutional Appears: No Acute Distress - ENT Exam ENT Exam: Mucous Membranes Moist - Respiratory Exam Respiratory Exam: Clear to Ausculation Bilateral, NORMAL BREATHING PATTERN - Cardiovascular Exam Cardiovascular Exam: absent: JVD, Rubs - Extremities Exam Extremities Exam: absent: Calf Tenderness - Back Exam Back Exam: absent: CVA tenderness (L), CVA tenderness (R) - Neurological Exam Neurological Exam: Alert Assessment and Plan (1) ESRD (end stage renal disease) Assessment & Plan: Patient about to have dialysis as scheduled Order in place Potassium ,sodium and bicarbonate as ordered Ultrafiltration in the range of 3000 mL Problem #2 anemia patient receiving EPO and keep monitoring and doing well hemoglobin stable. Problem #3 secondary hyperparathyroidism PTH 164 within target continue calcitriol. Problem #4 hyperphosphatemia serum phosphorus 5.1 within target continue phosphorus binder. IV antibiotics as per primary team and wound care. Status: Chronic (2) Cellulitis of leg Status: Chronic
--- NOTE | 2017-01-31 09:10 | CON ---
DATE: Mrs. Leo is a 46-year-old black female with diabetes mellitus for many years, dialysis dependant. Called by Dr. Thomas to see me in consultation. Her visual acuity was 22/100 in each eye. On lens exam, 1+ nuclear sclerosis. Dilated fundus exam revealed proliferative diabetic retinopathy in both eyes. The rest of the exam was normal. I recommended that Mrs. Leo come to see me after discharge because she will need laser treatment in both eyes. Yusuf Hernandez MD
[2017-01-31] MEDS: Multivitamin Vitamin B Complex (Nephro-Vite) Tab PO SCH (09:21)
[2017-01-31] MEDS: Pantoprazole 40 mg EC Tab PO SCH (09:24)
[2017-01-31] MEDS: Santyl Collagenase OINTMENT TOP SCH (09:26)
[2017-01-31] MEDS: Insulin Lispro (humaLOG) 100 Units/ml Inj SC SCH ×3 (09:28→16:36)
[2017-01-31] MEDS: Epoetin Alfa 4000 UNIT/ML Inj IV SCH (09:30)
[2017-01-31 10:07] LABS: BASO # 0.1 K/uL (0.0-0.2); EOS % 12.3 % (0.0-4.0); HEMATOCRIT 39.9 % (34.0-47.0); LYMPH # 1.8 K/uL (1.0-4.3); LYMPH % 21.2 % (20.0-40.0); MEAN CELL VOLUME 95.2 fl (81.0-99.0); MEAN CORPUSCULAR HEMOGLOBIN 29.2 pg (27.0-31.0); MEAN CORPUSCULAR HGB CONC 30.6 g/dL (33.0-37.0); MEAN PLATELET VOLUME 10.2 fl (7.2-11.7); MONO # 0.9 K/uL (0.0-0.8); NEUT # 4.6 K/uL (1.8-7.0); NEUT % 54.5 % (50.0-75.0); NRBC % 0.1 % (0.0-0.0); RED CELL DISTRIBUTION WIDTH 19.2 % (11.5-14.5); WHITE BLOOD COUNT 8.5 K/uL (4.8-10.8)
[2017-01-31 11:08] LABS: ALB/GLOB RATIO 0.9 (1.0-2.1); BILIRUBIN,TOTAL 0.5 mg/dl (0.2-1.3); CALCIUM 9.7 mg/dL (8.4-10.2); POTASSIUM 4.7 MMOL/L (3.6-5.0); TOTAL PROTEIN 8.2 G/DL (6.3-8.2)
[2017-01-31] MEDS: Gentamicin 60mg/50ml NS 60 MG/50 ML BAG IVPB SCH (14:27)
--- NOTE | 2017-01-31 16:00 | CP.PCM.PN ---
Subjective - Date & Time of Evaluation Date of Evaluation: 01/31/17 Time of Evaluation: 15:54 - Subjective Subjective: Patient had wound vac changed today. The BK wound looks very good, granulating in nicely. No fevers, cough, dyspnea, or abdominal or chest pain. Bowels OK. Slight increase in wbc cont and elevation in transaminases and alkaline phosphatase is a concern. Could this be due to antibiotics or to other medications. I communicated with Dr. Lemon on this. I will repeat the cmp tomorrow. I will also order an ultrasound of the abdomen (liver, spleen, gb ) and kidneys. We may have to stop the daptomycin. Glucose levels are good. Objective - Vital Signs/Intake and Output Vital Signs (last 24 hours): Temp Pulse Resp BP Pulse Ox 98.3 F 97 H 19 147/62 96 01/31/17 07:52 01/31/17 07:52 01/31/17 07:52 01/31/17 07:52 01/31/17 07:52 - Medications Medications: Current Medications Acetaminophen (Tylenol 325mg Tab) 650 mg PO Q4 PRN PRN Reason: Fever >100.4 F Last Admin: 12/26/16 19:40 Dose: 650 mg Acetaminophen (Tylenol 325mg Tab) 650 mg PO Q4 PRN PRN Reason: Pain, moderate (4-7) Last Admin: 01/20/17 11:28 Dose: 650 mg Apixaban (Eliquis) 5 mg PO BID [facility] PRN Reason: Protocol Last Admin: 01/31/17 09:21 Dose: 5 mg Aspirin (Ecotrin) 81 mg PO DAILY [facility] Last Admin: 01/31/17 09:21 Dose: 81 mg Atorvastatin Calcium (Lipitor) 40 mg PO DAILY [facility] Last Admin: 01/31/17 09:22 Dose: 40 mg Calcitriol (Rocaltrol) 0.25 mcg PO DAILY [facility] Last Admin: 01/31/17 09:25 Dose: 0.25 mcg Calcium Carbonate (Oscal) 500 mg PO BIDWM [facility] Last Admin: 01/31/17 09:21 Dose: 500 mg Collagenase (Santyl) 1 applic TOP DAILY [facility] Last Admin: 01/31/17 09:26 Dose: 1 applic Diphenhydramine HCl (Benadryl) 25 mg PO Q6 PRN PRN Reason: Itching / Pruritus Last Admin: 12/17/16 09:53 Dose: 25 mg Docusate Sodium (Colace) 100 mg PO BID [facility] Last Admin: 01/31/17 09:20 Dose: 100 mg Epoetin Tha (Procrit) 4,000 unit IV [facility] [place] Admin: 01/31/17 09:30 Dose: 4,000 unit Ergocalciferol (Drisdol 50,000 Intl Units Cap) 1 cap PO WED [facility] Last Admin: 01/29/17 08:19 Dose: 1 cap Fluconazole (Diflucan) 100 mg PO DAILY [facility] Last Admin: 01/31/17 09:21 Dose: 100 mg Gabapentin (Neurontin) 300 mg PO TID [facility] Last Admin: 01/31/17 14:16 Dose: 300 mg Guaifenesin/Dextromethorphan (Robitussin Dm) 10 ml PO Q4 PRN PRN Reason: Cough Last Admin: 01/13/17 10:51 Dose: 10 ml Hydrocortisone (Anusol-Hc) 1 applic [place] BID PRN PRN Reason: Inflammation Hydromorphone HCl (Dilaudid) 1 mg IVP Q4H PRN PRN Reason: Pain, severe (8-10) Last Admin: 01/31/17 15:40 Dose: 1 mg Hydromorphone HCl (Dilaudid) 2 mg PO Q4 PRN PRN Reason: Pain, moderate (4-7) Sodium Chloride (Sodium Chloride 0.45%) 500 mls @ 10 mls/hr IV .Q24H [facility] Last Admin: 01/30/17 14:35 Dose: 10 mls/hr Ceftazidime/Avibactam 0.94 gm/ (Sodium Chloride) 100 mls @ 50 mls/hr IV QOTHERDAY@2200 [facility] Last Admin: 01/30/17 21:24 Dose: 50 mls/hr Daptomycin 650 mg/ Sodium (Chloride) 100 mls @ 100 mls/hr [place]PB [facility] [place]: 02/19/17 09:59 Last Admin: 01/31/17 14:20 Dose: 100 mls/hr Gentamicin Sulfate/Sodium Chloride (Gentamicin 60mg/50ml Ns) 60 mg in 50 mls @ 50 mls/hr [place]PB [facility] Last Admin: 01/31/17 14:27 Dose: 50 mls/hr Insulin Detemir (Levemir) 30 units SC HS [facility] Last Admin: 01/30/17 21:50 Dose: 30 units Insulin Human Lispro (Humalog) 10 units SC ACTID [facility] Last Admin: 01/31/17 14:15 Dose: 10 units Levalbuterol HCl (Xopenex) 0.63 mg INH RQ8 PRN PRN Reason: Shortness of Breath Metoprolol Tartrate (Lopressor) 25 mg PO Q12 [facility] Last Admin: 01/31/17 09:23 Dose: Not Given Nystatin (Nystop Topical Powder) 1 applic TOP BID [facility] Last Admin: 01/31/17 09:22 Dose: 1 applic Ondansetron HCl (Zofran Inj) 4 mg IVP Q6 PRN PRN Reason: Nausea/Vomiting Last Admin: 09/19/16 10:26 Dose: 4 mg Pantoprazole Sodium (Protonix Ec Tab) 40 mg PO DAILY [facility] Last Admin: 01/31/17 09:24 Dose: 40 mg Phenylephrine HCl (Phenylephrine Opht 10% Soln) 1 drop OU Q5MIN [facility] Stop: 02/01/17 11:16 Last Admin: 01/30/17 11:30 Dose: 1 drop Repaglinide (Prandin) 2 mg PO TIDAC [facility] Last Admin: 01/31/17 14:15 Dose: 2 mg Sennosides (Senokot Tab) 25.8 mg PO [facility] Last Admin: 01/30/17 21:48 Dose: 25.8 mg Sevelamer HCl (Renagel) 1,600 mg PO TIDWM [facility] Last Admin: 01/31/17 14:16 Dose: 1,600 mg Simethicone (Mylicon Chew Tab) 80 mg PO Q4H PRN PRN Reason: flatulence or "gassy feeling:" Last Admin: 01/07/17 16:57 Dose: 80 mg Topiramate (Topamax) 50 mg PO BID [facility] Last Admin: 01/31/17 09:26 Dose: 50 mg Tropicamide (Mydriacyl 1% Opht Soln 15ml) 1 drop OU Q5MIN [facility] Stop: 02/01/17 09:16 Last Admin: 01/30/17 11:35 Dose: 1 drop Vitamin B Complex/Vit C/Folic Acid (Nephro-Ajay) 1 tab PO DAILY [facility] Last Admin: 01/31/17 09:21 Dose: 1 tab - Labs Labs: 01/31/17 09:15 01/31/17 09:15 PT 15.3 Seconds (9.8-13.1) H 12/02/16 13:05 INR 1.4 (0.9-1.2) H 12/02/16 13:05 APTT 37.0 Seconds (25.6-37.1) 12/02/16 13:05 AST - 74 ALT = 80 Alk Phos = 201 T Bili = 0.5 Assessment and Plan (1) Status post below knee amputation of right lower extremity Status: Acute (2) ESRD (end stage renal disease) on dialysis Status: Chronic (3) DM type 2 (diabetes mellitus, type 2) Status: Chronic (4) Peripheral arterial occlusive disease Status: Chronic (5) Coagulopathy Status: Chronic (6) Seizure disorder Status: Acute
--- NOTE | 2017-01-31 19:23 | CP.PCM.PN ---
Subjective - Date & Time of Evaluation Date of Evaluation: 01/31/17 Time of Evaluation: 19:24 - Subjective Subjective: I D NOTES LFTs INCREASING AND SHE HAS BEEN ON DAPTOMYCIN FOR AN EXTENDED PERIOD.I HAVE D/SERA DAPTOMYCIN AND ORDERED SERIAL LFTs. HAVE GIVEN STAT DOSE OF VANCOMYCIN(WHICH IS ACTUALLY A POST HD DOSE)AND ORDERED RANDOM LEVEL FOR AM.THIS SHOULD COVER GRAM POSITIVES DID DAPTOMYCIN GENTAMICIN TROUGH IS 3.4 (STILL ELEVATED DESPITE RECENT DOSE ADJUSTMENT) MAY NEED FURTHER DECREASE .RANDOM GENTAMICIN LEVEL ORDERED FOR AM AND WILL MAKE DECISION AT THAT TIME. CONTINUE [facility] Objective - Vital Signs/Intake and Output Vital Signs (last 24 hours): Temp Pulse Resp BP Pulse Ox 98.6 F 104 H 18 119/58 L 95 01/31/17 16:22 01/31/17 16:22 01/31/17 16:22 01/31/17 16:22 01/31/17 16:22 - Medications Medications: Current Medications Acetaminophen (Tylenol 325mg Tab) 650 mg PO Q4 PRN PRN Reason: Fever >100.4 F Last Admin: 12/26/16 19:40 Dose: 650 mg Acetaminophen (Tylenol 325mg Tab) 650 mg PO Q4 PRN PRN Reason: Pain, moderate (4-7) Last Admin: 01/20/17 11:28 Dose: 650 mg Apixaban (Eliquis) 5 mg PO BID [facility] PRN Reason: Protocol Last Admin: 01/31/17 16:35 Dose: 5 mg Aspirin (Ecotrin) 81 mg PO DAILY [facility] Last Admin: 01/31/17 09:21 Dose: 81 mg Atorvastatin Calcium (Lipitor) 40 mg PO DAILY [facility] Last Admin: 01/31/17 09:22 Dose: 40 mg Calcitriol (Rocaltrol) 0.25 mcg PO DAILY [facility] Last Admin: 01/31/17 09:25 Dose: 0.25 mcg Calcium Carbonate (Oscal) 500 mg PO BIDWM [facility] Last Admin: 01/31/17 17:07 Dose: 500 mg Collagenase (Santyl) 1 applic TOP DAILY [facility] Last Admin: 01/31/17 09:26 Dose: 1 applic Diphenhydramine HCl (Benadryl) 25 mg PO Q6 PRN PRN Reason: Itching / Pruritus Last Admin: 12/17/16 09:53 Dose: 25 mg Docusate Sodium (Colace) 100 mg PO BID [facility] Last Admin: 01/31/17 16:34 Dose: 100 mg Epoetin Tha (Procrit) 4,000 unit [place] [facility] Last Admin: 01/31/17 09:30 Dose: 4,000 unit Ergocalciferol (Drisdol 50,000 Intl Units Cap) 1 cap PO WED [facility] Last Admin: 01/29/17 08:19 Dose: 1 cap Fluconazole (Diflucan) 100 mg PO DAILY [facility] Last Admin: 01/31/17 09:21 Dose: 100 mg Gabapentin (Neurontin) 300 mg PO TID [facility] Last Admin: 01/31/17 16:39 Dose: 300 mg Guaifenesin/Dextromethorphan (Robitussin Dm) 10 ml PO Q4 PRN PRN Reason: Cough Last Admin: 01/13/17 10:51 Dose: 10 ml Hydrocortisone (Anusol-Hc) 1 applic [place] BID PRN PRN Reason: Inflammation Hydromorphone HCl (Dilaudid) 1 mg IVP Q4H PRN PRN Reason: Pain, severe (8-10) Last Admin: 01/31/17 15:40 Dose: 1 mg Hydromorphone HCl (Dilaudid) 2 mg PO Q4 PRN PRN Reason: Pain, moderate (4-7) Sodium Chloride (Sodium Chloride 0.45%) 500 mls @ 10 mls/hr IV .Q24H [facility] Last Admin: 01/31/17 16:45 Dose: Not Given Ceftazidime/Avibactam 0.94 gm/ (Sodium Chloride) 100 mls @ 50 mls/hr IV QOTHERDAY@2200 [facility] Last Admin: 01/30/17 21:24 Dose: 50 mls/hr Gentamicin Sulfate/Sodium Chloride (Gentamicin 60mg/50ml Ns) 60 mg in 50 mls @ 50 mls/hr [place] [facility] Last Admin: 01/31/17 14:27 Dose: 50 mls/hr Vancomycin HCl 500 mg/ Sodium (Chloride) 100 mls @ 100 mls/hr IVPB STAT STA Stop: 01/31/17 20:07 Insulin Detemir (Levemir) 30 units SC HS [facility] Last Admin: 01/30/17 21:50 Dose: 30 units Insulin Human Lispro (Humalog) 10 units SC ACTID [facility] Last Admin: 01/31/17 16:36 Dose: 10 units Levalbuterol HCl (Xopenex) 0.63 mg INH RQ8 PRN PRN Reason: Shortness of Breath Metoprolol Tartrate (Lopressor) 25 mg PO Q12 [facility] Last Admin: 01/31/17 09:23 Dose: Not Given Nystatin (Nystop Topical Powder) 1 applic TOP BID [facility] Last Admin: 01/31/17 17:08 Dose: 1 applic Ondansetron HCl (Zofran Inj) 4 mg IVP Q6 PRN PRN Reason: Nausea/Vomiting Last Admin: 09/19/16 10:26 Dose: 4 mg Pantoprazole Sodium (Protonix Ec Tab) 40 mg PO DAILY [facility] Last Admin: 01/31/17 09:24 Dose: 40 mg Phenylephrine HCl (Phenylephrine Opht 10% Soln) 1 drop OU Q5MIN [facility] Stop: 02/01/17 11:16 Last Admin: 01/30/17 11:30 Dose: 1 drop Repaglinide (Prandin) 2 mg PO TIDAC [facility] Last Admin: 01/31/17 16:39 Dose: 2 mg Sennosides (Senokot Tab) 25.8 mg PO HS [facility] Last Admin: 01/30/17 21:48 Dose: 25.8 mg Sevelamer HCl (Renagel) 1,600 mg PO TIDWM [facility] Last Admin: 01/31/17 16:39 Dose: 1,600 mg Simethicone (Mylicon Chew Tab) 80 mg PO Q4H PRN PRN Reason: flatulence or "gassy feeling:" Last Admin: 01/07/17 16:57 Dose: 80 mg Topiramate (Topamax) 50 mg PO BID [facility] Last Admin: 01/31/17 16:46 Dose: 50 mg Tropicamide (Mydriacyl 1% Opht Soln 15ml) 1 drop OU Q5MIN [facility] Stop: 02/01/17 09:16 Last Admin: 01/30/17 11:35 Dose: 1 drop Vitamin B Complex/Vit C/Folic Acid (Nephro-Ajay) 1 tab PO DAILY [facility] Last Admin: 01/31/17 09:21 Dose: 1 tab - Labs Labs: 01/31/17 09:15 01/31/17 09:15 PT 15.3 Seconds (9.8-13.1) H 12/02/16 13:05 INR 1.4 (0.9-1.2) H 12/02/16 13:05 APTT 37.0 Seconds (25.6-37.1) 12/02/16 13:05
[2017-01-31] MEDS: Insulin Detemir 100 Units/ml Inj SC SCH (21:45)
--- NOTE | 2017-02-01 | CP.PCM.PN ---
Subjective - Date & Time of Evaluation Date of Evaluation: 01/31/17 Time of Evaluation: 21:00 - Subjective Subjective: Patient is doing well clinically. She is eating well. She has a high Gentamycin level above 3 and a High LFT that is believed to be due to Daptomycin. She is receiving her Antibiotics Post Dialysis and she received an Extra Dose Of Vancomycin. She has no seizures and she is on Topamax 50 mg Q 12 hrs. She is receiving hemodialysis 3 days a week for ESRD. She is receiving treatment for her DM.. Objective - Vital Signs/Intake and Output Vital Signs (last 24 hours): Temp Pulse Resp BP Pulse Ox 98.6 F 99 H 18 100/83 95 01/31/17 16:22 01/31/17 21:44 01/31/17 16:22 01/31/17 21:44 01/31/17 16:22 - Medications Medications: Current Medications Acetaminophen (Tylenol 325mg Tab) 650 mg PO Q4 PRN PRN Reason: Fever >100.4 F Last Admin: 12/26/16 19:40 Dose: 650 mg Acetaminophen (Tylenol 325mg Tab) 650 mg PO Q4 PRN PRN Reason: Pain, moderate (4-7) Last Admin: 01/20/17 11:28 Dose: 650 mg Apixaban (Eliquis) 5 mg PO BID [facility] PRN Reason: Protocol Last Admin: 01/31/17 16:35 Dose: 5 mg Aspirin (Ecotrin) 81 mg PO DAILY [facility] Last Admin: 01/31/17 09:21 Dose: 81 mg Atorvastatin Calcium (Lipitor) 40 mg PO DAILY [facility] Last Admin: 01/31/17 09:22 Dose: 40 mg Calcitriol (Rocaltrol) 0.25 mcg PO DAILY [facility] Last Admin: 01/31/17 09:25 Dose: 0.25 mcg Calcium Carbonate (Oscal) 500 mg PO BIDWM [facility] Last Admin: 01/31/17 17:07 Dose: 500 mg Collagenase (Santyl) 1 applic TOP DAILY [facility] Last Admin: 01/31/17 09:26 Dose: 1 applic Diphenhydramine HCl (Benadryl) 25 mg PO Q6 PRN PRN Reason: Itching / Pruritus Last Admin: 12/17/16 09:53 Dose: 25 mg Docusate Sodium (Colace) 100 mg PO BID [facility] Last Admin: 01/31/17 16:34 Dose: 100 mg Epoetin Tha (Procrit) 4,000 unit IV MWF [facility] Last Admin: 01/31/17 09:30 Dose: 4,000 unit Ergocalciferol (Drisdol 50,000 Intl Units Cap) 1 cap PO WED [facility] Last Admin: 01/29/17 08:19 Dose: 1 cap Fluconazole (Diflucan) 100 mg PO DAILY [facility] Last Admin: 01/31/17 09:21 Dose: 100 mg Gabapentin (Neurontin) 300 mg PO TID [facility] Last Admin: 01/31/17 16:39 Dose: 300 mg Guaifenesin/Dextromethorphan (Robitussin Dm) 10 ml PO Q4 PRN PRN Reason: Cough Last Admin: 01/13/17 10:51 Dose: 10 ml Hydrocortisone (Anusol-Hc) 1 applic [place] BID PRN PRN Reason: Inflammation Hydromorphone HCl (Dilaudid) 1 mg IVP Q4H PRN PRN Reason: Pain, severe (8-10) Last Admin: 01/31/17 21:15 Dose: 1 mg Hydromorphone HCl (Dilaudid) 2 mg PO Q4 PRN PRN Reason: Pain, moderate (4-7) Sodium Chloride (Sodium Chloride 0.45%) 500 mls @ 10 mls/hr IV .Q24H [facility] Last Admin: 01/31/17 16:45 Dose: Not Given Ceftazidime/Avibactam 0.94 gm/ (Sodium Chloride) 100 mls @ 50 mls/hr IV QOTHERDAY@2200 [facility] Last Admin: 01/30/17 21:24 Dose: 50 mls/hr Gentamicin Sulfate/Sodium Chloride (Gentamicin 60mg/50ml Ns) 60 mg in 50 mls @ 50 mls/hr IVPB F [facility] Last Admin: 01/31/17 14:27 Dose: 50 mls/hr Insulin Detemir (Levemir) 30 units SC HS [facility] Last Admin: 01/31/17 21:45 Dose: 30 units Insulin Human Lispro (Humalog) 10 units SC ACTID [facility] Last Admin: 01/31/17 16:36 Dose: 10 units Levalbuterol HCl (Xopenex) 0.63 mg INH RQ8 PRN PRN Reason: Shortness of Breath Metoprolol Tartrate (Lopressor) 25 mg PO Q12 [facility] Last Admin: 01/31/17 21:44 Dose: 25 mg Nystatin (Nystop Topical Powder) 1 applic TOP BID [facility] Last Admin: 01/31/17 17:08 Dose: 1 applic Ondansetron HCl (Zofran Inj) 4 mg IVP Q6 PRN PRN Reason: Nausea/Vomiting Last Admin: 09/19/16 10:26 Dose: 4 mg Pantoprazole Sodium (Protonix Ec Tab) 40 mg PO DAILY [facility] Last Admin: 01/31/17 09:24 Dose: 40 mg Phenylephrine HCl (Phenylephrine Opht 10% Soln) 1 drop OU Q5MIN [facility] Stop: 02/01/17 11:16 Last Admin: 01/30/17 11:30 Dose: 1 drop Repaglinide (Prandin) 2 mg PO TIDAC [facility] Last Admin: 01/31/17 16:39 Dose: 2 mg Sennosides (Senokot Tab) 25.8 mg PO HS [facility] Last Admin: 01/31/17 21:43 Dose: 25.8 mg Sevelamer HCl (Renagel) 1,600 mg PO TIDWM [facility] Last Admin: 01/31/17 16:39 Dose: 1,600 mg Simethicone (Mylicon Chew Tab) 80 mg PO Q4H PRN PRN Reason: flatulence or "gassy feeling:" Last Admin: 01/07/17 16:57 Dose: 80 mg Topiramate (Topamax) 50 mg PO BID [facility] Last Admin: 01/31/17 16:46 Dose: 50 mg Tropicamide (Mydriacyl 1% Opht Soln 15ml) 1 drop OU Q5MIN [facility] Stop: 02/01/17 09:16 Last Admin: 01/30/17 11:35 Dose: 1 drop Vitamin B Complex/Vit C/Folic Acid (Nephro-Ajay) 1 tab PO DAILY [facility] Last Admin: 01/31/17 09:21 Dose: 1 tab - Labs Labs: 01/31/17 09:15 01/31/17 09:15 PT 15.3 Seconds (9.8-13.1) H 12/02/16 13:05 INR 1.4 (0.9-1.2) H 12/02/16 13:05 APTT 37.0 Seconds (25.6-37.1) 12/02/16 13:05 Assessment and Plan (1) Diabetes Status: Chronic (2) ESRD (end stage renal disease) Status: Chronic (3) Cellulitis of leg Status: Chronic (4) Hyperlipidemia Status: Chronic (5) Back pain Status: Acute (6) Bacteremia due to Gram-negative bacteria Status: Acute (7) PVD (peripheral vascular disease) Status: Chronic (8) Osteomyelitis of right leg Status: Acute
--- NOTE | 2017-02-01 00:10 | PN ---
DATE: LOCATION: Room 661. This is a 46-year-old female with recent uncontrolled type 2 insulin-requiring diabetes now with improving glycemic profile with the initiation of a basal and bolus insulin regimen as given. She also has ongoing IV antibiotic management for underlying severe osteomyelitis in the right below-knee amputation stump as noted. Her latest chemistry showed a BUN of 59, sodium 140, potassium 4.7, chloride 100, CO2 is 21, glucose 110 and creatinine 7.3. Her glucose levels have ranged from 94 to 171 and 199 mg/dL. So at this time, we will continue the same basal and bolus insulin regimen as given with Humalog given as 10 units subcu t.i.d. before meals as ordered. We will continue the long-acting basal insulin with Levemir given as 30 units subcu at bedtime daily as given. We will titrate incremental as indicated to optimize metabolic control. We will follow and advise accordingly. Irene Ambrose MD
[2017-02-01 08:42] LABS: BILIRUBIN,TOTAL 0.5 mg/dl (0.2-1.3)
--- NOTE | 2017-02-01 09:53 | US ---
HISTORY: Elevated liver enzymes, R/o gallstones COMPARISON: Comparison is made to the previous CT dated 08/31/2016 TECHNIQUE: Sonographic evaluation of the abdomen. FINDINGS: LIVER: Measures 18.7 cm. Normal echogenicity of the liver parenchyma. No mass. No intrahepatic bile duct dilatation. GALLBLADDER: There are gallstones. There is no evidence of significant gallbladder wall thickening or pericholecystic fluid. No evidence of sonographic Ramos's sign. COMMON BILE DUCT: Measures 5 mm. No stones. No dilatation. PANCREAS: The evaluation of the pancreas is limited in this study due to overlying bowel gas. Unremarkable as visualized. No mass. No ductal dilatation. RIGHT KIDNEY: Measures 9.7 x 4.1 x 4.5cm. Normal echogenicity. No calculus, mass, or hydronephrosis. LEFT KIDNEY: The left kidney is not clearly visualized this exam. SPLEEN: Normal in size and contour. No mass. AORTA: The aorta is not clearly visualized due to overlying bowel gas P IVC: The IVC is also not clearly visualized due to overlying bowel gas. OTHER FINDINGS: None. IMPRESSION: This study is somewhat limited due to the patient's body habitus and diffuse increased bowel gas. Mild hepatomegaly. Gallstones without ultrasound evidence of acute cholecystitis. The pancreas, left kidney, aorta and IVC are not clearly visualized.
[2017-02-01] MEDS: Insulin Lispro (humaLOG) 100 Units/ml Inj SC SCH ×3 (10:11→17:44)
[2017-02-01] MEDS: Simethicone 80 mg Chewtab PO PRN (10:13)
[2017-02-01] MEDS: Multivitamin Vitamin B Complex (Nephro-Vite) Tab PO SCH (10:13)
[2017-02-01] MEDS: Pantoprazole 40 mg EC Tab PO SCH (10:15)
[2017-02-01] MEDS: Santyl Collagenase OINTMENT TOP SCH (10:15)
[2017-02-01 12:48] LABS: VANCOMYCIN RANDOM 6.1 ug/mL
--- NOTE | 2017-02-01 16:23 | CP.PCM.PN ---
Subjective - Date & Time of Evaluation Date of Evaluation: 02/01/17 Time of Evaluation: 16:19 - Subjective Subjective: The patient has been up in the wheelchair for a few hours. She has no cough, dyspnea, fever or pain. Dr. Lemon's ID note appreciated. He has stopped the daptomycin because of the elvated transaminases and alkaline phosphatase (both remain mildly elevated) . He gave a dose of Vancomycin. Avycaz (ceftazidime/avibactam) and gentamicin continue. Serial LFT's and vancomycin and gentamicin levels have been ordered. I reviewed the abdominal ultrasound with radiologist. The liver, gb, spleen, pancreas are OK. The kidneys are not well visualized. There are no visible stones. There is no sign of organ or ductal obstruction. Glucose = 94 Objective - Vital Signs/Intake and Output Vital Signs (last 24 hours): Temp Pulse Resp BP Pulse Ox 97.6 F 96 H 20 141/63 95 02/01/17 09:00 02/01/17 10:12 02/01/17 09:00 02/01/17 10:12 02/01/17 09:00 - Medications Medications: Current Medications Acetaminophen (Tylenol 325mg Tab) 650 mg PO Q4 PRN PRN Reason: Fever >100.4 F Last Admin: 12/26/16 19:40 Dose: 650 mg Acetaminophen (Tylenol 325mg Tab) 650 mg PO Q4 PRN PRN Reason: Pain, moderate (4-7) Last Admin: 01/20/17 11:28 Dose: 650 mg Apixaban (Eliquis) 5 mg PO BID [facility] PRN Reason: Protocol Last Admin: 02/01/17 10:11 Dose: 5 mg Aspirin (Ecotrin) 81 mg PO DAILY [facility] Last Admin: 02/01/17 10:11 Dose: 81 mg Atorvastatin Calcium (Lipitor) 40 mg PO DAILY [facility] Last Admin: 02/01/17 10:12 Dose: 40 mg Calcitriol (Rocaltrol) 0.25 mcg PO DAILY [facility] Last Admin: 02/01/17 10:15 Dose: 0.25 mcg Calcium Carbonate (Oscal) 500 mg PO BIDWM [facility] Last Admin: 02/01/17 10:14 Dose: 500 mg Collagenase (Santyl) 1 applic TOP DAILY [facility] Last Admin: 02/01/17 10:15 Dose: 1 applic Diphenhydramine HCl (Benadryl) 25 mg PO Q6 PRN PRN Reason: Itching / Pruritus Last Admin: 12/17/16 09:53 Dose: 25 mg Docusate Sodium (Colace) 100 mg PO BID [facility] Last Admin: 02/01/17 10:10 Dose: 100 mg Epoetin Tha (Procrit) 4,000 unit IV [facility] Last Admin: 01/31/17 09:30 Dose: 4,000 unit Ergocalciferol (Drisdol 50,000 Intl Units Cap) 1 cap PO WED [facility] Last Admin: 01/29/17 08:19 Dose: 1 cap Fluconazole (Diflucan) 100 mg PO DAILY [facility] Last Admin: 02/01/17 10:10 Dose: 100 mg Gabapentin (Neurontin) 300 mg PO TID [facility] Last Admin: 02/01/17 12:49 Dose: 300 mg Guaifenesin/Dextromethorphan (Robitussin Dm) 10 ml PO Q4 PRN PRN Reason: Cough Last Admin: 01/13/17 10:51 Dose: 10 ml Hydrocortisone (Anusol-Hc) 1 applic [place] BID PRN PRN Reason: Inflammation Hydromorphone HCl (Dilaudid) 1 mg IVP Q4H PRN PRN Reason: Pain, severe (8-10) Last Admin: 02/01/17 14:46 Dose: 1 mg Hydromorphone HCl (Dilaudid) 2 mg PO Q4 PRN PRN Reason: Pain, moderate (4-7) Sodium Chloride (Sodium Chloride 0.45%) 500 mls @ 10 mls/hr IV .Q24H [facility] Last Admin: 01/31/17 16:45 Dose: Not Given Ceftazidime/Avibactam 0.94 gm/ (Sodium Chloride) 100 mls @ 50 mls/hr IV QOTHERDAY@2200 [facility] Last Admin: 01/30/17 21:24 Dose: 50 mls/hr Gentamicin Sulfate/Sodium Chloride (Gentamicin 60mg/50ml Ns) 60 mg in 50 mls @ 50 mls/hr IVPB [facility] [place] Last Admin: 01/31/17 14:27 Dose: 50 mls/hr Insulin Detemir (Levemir) 30 units SC [facility] Last Admin: 01/31/17 21:45 Dose: 30 units Insulin Human Lispro (Humalog) 10 units SC ACTID [facility] Last Admin: 02/01/17 12:48 Dose: 10 units Levalbuterol HCl (Xopenex) 0.63 mg INH RQ8 PRN PRN Reason: Shortness of Breath Metoprolol Tartrate (Lopressor) 25 mg PO Q12 [facility] Last Admin: 02/01/17 10:12 Dose: 25 mg Nystatin (Nystop Topical Powder) 1 applic TOP BID [facility] Last Admin: 02/01/17 10:14 Dose: 1 applic Ondansetron HCl (Zofran Inj) 4 mg IVP Q6 PRN PRN Reason: Nausea/Vomiting Last Admin: 09/19/16 10:26 Dose: 4 mg Pantoprazole Sodium (Protonix Ec Tab) 40 mg PO DAILY [facility] Last Admin: 02/01/17 10:15 Dose: 40 mg Repaglinide (Prandin) 2 mg PO TIDAC [facility] Last Admin: 02/01/17 12:49 Dose: 2 mg Sennosides (Senokot Tab) 25.8 mg PO HS [facility] Last Admin: 01/31/17 21:43 Dose: 25.8 mg Sevelamer HCl (Renagel) 1,600 mg PO TIDWM [facility] Last Admin: 02/01/17 12:49 Dose: 1,600 mg Simethicone (Mylicon Chew Tab) 80 mg PO Q4H PRN PRN Reason: flatulence or "gassy feeling:" Last Admin: 02/01/17 10:13 Dose: 80 mg Topiramate (Topamax) 50 mg PO BID [facility] Last Admin: 02/01/17 10:15 Dose: 50 mg Vitamin B Complex/Vit C/Folic Acid (Nephro-Ajay) 1 tab PO DAILY [facility] Last Admin: 02/01/17 10:13 Dose: 1 tab - Labs Labs: 01/31/17 09:15 01/31/17 09:15 PT 15.3 Seconds (9.8-13.1) H 12/02/16 13:05 INR 1.4 (0.9-1.2) H 12/02/16 13:05 APTT 37.0 Seconds (25.6-37.1) 12/02/16 13:05 - Constitutional Appears: No Acute Distress - Head Exam Head Exam: NORMAL INSPECTION - Eye Exam Eye Exam: Normal appearance - ENT Exam ENT Exam: Mucous Membranes Moist - Neck Exam Neck Exam: Normal Inspection Additional comments: R subclavian Permacath intact. - Respiratory Exam Respiratory Exam: Clear to Ausculation Bilateral, NORMAL BREATHING PATTERN - Cardiovascular Exam Cardiovascular Exam: REGULAR RHYTHM, +S1, +S2 - Extremities Exam Additional comments: Right BK wound vac intact and dressing on patella is also intact. L femoral vein PICC line intact. Hand warm She is wearing her L BK prosthesis. - Back Exam Back Exam: NORMAL INSPECTION - Psychiatric Exam Psychiatric exam: Normal Affect, Normal Mood - Skin Skin Exam: Dry, Normal Color, Warm Assessment and Plan (1) Status post below knee amputation of right lower extremity Assessment & Plan: Continues to make progress, but antibiotics have needed adjustment. SEE SUBJECTIVE. Status: Acute (2) ESRD (end stage renal disease) on dialysis Assessment & Plan: STABLE Status: Chronic (3) DM type 2 (diabetes mellitus, type 2) Assessment & Plan: Controlled. Status: Chronic (4) Peripheral arterial occlusive disease Status: Chronic (5) Coagulopathy Status: Chronic (6) Seizure disorder Assessment & Plan: controlled. Status: Acute (7) Elevated liver enzymes Assessment & Plan: Daptomycin stopped. Serial LFT's ordered. SEE SUBJECTIVE FOR REPORT OF ABDOMINAL/RENAL ULTRASOUND. Status: Acute
[2017-02-01] MEDS: Insulin Detemir 100 Units/ml Inj SC SCH (21:41)
--- NOTE | 2017-02-01 22:38 | CP.PCM.PN ---
Subjective - Date & Time of Evaluation Date of Evaluation: 02/01/17 Time of Evaluation: 20:00 - Subjective Subjective: The report of Ultrasonogram of the abdomen is not clear. It mentions that there are gall stones, then it mentions it is not significant. If there are Gall stones, Topamax needs to be substituted with another medicine for seizures, as Trileptal or Lamotrigen. There is no seizures. She is doing well and is using the wheel chair for a long period of time. She is having Normal Blood Glucose of 95 and is receiving hemodialysis regularly on ,,. Normal V.S. Objective - Vital Signs/Intake and Output Vital Signs (last 24 hours): Temp Pulse Resp BP Pulse Ox 98 F 91 H 20 109/77 96 02/01/17 16:55 02/01/17 21:40 02/01/17 16:55 02/01/17 21:40 02/01/17 16:55 - Medications Medications: Current Medications Acetaminophen (Tylenol 325mg Tab) 650 mg PO Q4 PRN PRN Reason: Fever >100.4 F Last Admin: 12/26/16 19:40 Dose: 650 mg Acetaminophen (Tylenol 325mg Tab) 650 mg PO Q4 PRN PRN Reason: Pain, moderate (4-7) Last Admin: 01/20/17 11:28 Dose: 650 mg Aspirin (Ecotrin) 81 mg PO DAILY [facility] Last Admin: 02/01/17 10:11 Dose: 81 mg Atorvastatin Calcium (Lipitor) 40 mg PO DAILY [facility] Last Admin: 02/01/17 10:12 Dose: 40 mg Calcitriol (Rocaltrol) 0.25 mcg PO DAILY [facility] Last Admin: 02/01/17 10:15 Dose: 0.25 mcg Calcium Carbonate (Oscal) 500 mg PO BIDWM [facility] Last Admin: 02/01/17 17:48 Dose: 500 mg Collagenase (Santyl) 1 applic TOP DAILY [facility] Last Admin: 02/01/17 10:15 Dose: 1 applic Diphenhydramine HCl (Benadryl) 25 mg PO Q6 PRN PRN Reason: Itching / Pruritus Last Admin: 12/17/16 09:53 Dose: 25 mg Docusate Sodium (Colace) 100 mg PO BID [facility] Last Admin: 02/01/17 17:43 Dose: 100 mg Epoetin Tha (Procrit) 4,000 unit IV [facility] Last Admin: 01/31/17 09:30 Dose: 4,000 unit Ergocalciferol (Drisdol 50,000 Intl Units Cap) 1 cap PO WED [facility] Last Admin: 01/29/17 08:19 Dose: 1 cap Fluconazole (Diflucan) 100 mg PO DAILY [facility] Last Admin: 02/01/17 10:10 Dose: 100 mg Gabapentin (Neurontin) 300 mg PO TID [facility] Last Admin: 02/01/17 17:45 Dose: 300 mg Guaifenesin/Dextromethorphan (Robitussin Dm) 10 ml PO Q4 PRN PRN Reason: Cough Last Admin: 01/13/17 10:51 Dose: 10 ml Hydrocortisone (Anusol-Hc) 1 applic [place] BID PRN PRN Reason: Inflammation Hydromorphone HCl (Dilaudid) 1 mg IVP Q4H PRN PRN Reason: Pain, severe (8-10) Last Admin: 02/01/17 20:22 Dose: 1 mg Hydromorphone HCl (Dilaudid) 2 mg PO Q4 PRN PRN Reason: Pain, moderate (4-7) Sodium Chloride (Sodium Chloride 0.45%) 500 mls @ 10 mls/hr IV .Q24H [facility] Last Admin: 02/01/17 17:46 Dose: 10 mls/hr Ceftazidime/Avibactam 0.94 gm/ (Sodium Chloride) 100 mls @ 50 mls/hr IV QOTHERDAY@2200 [facility] Last Admin: 02/01/17 21:31 Dose: 50 mls/hr Gentamicin Sulfate/Sodium Chloride (Gentamicin 60mg/50ml Ns) 60 mg in 50 mls @ 50 mls/hr IVPB [facility] [place] Last Admin: 01/31/17 14:27 Dose: 50 mls/hr Vancomycin HCl 500 mg/ Sodium (Chloride) 100 mls @ 100 mls/hr IVPB [facility] [place] Insulin Detemir (Levemir) 30 units SC HS [facility] Last Admin: 02/01/17 21:41 Dose: 30 units Insulin Human Lispro (Humalog) 10 units SC ACTID [facility] Last Admin: 02/01/17 17:44 Dose: 10 units Levalbuterol HCl (Xopenex) 0.63 mg INH RQ8 PRN PRN Reason: Shortness of Breath Metoprolol Tartrate (Lopressor) 25 mg PO Q12 [facility] Last Admin: 02/01/17 21:40 Dose: 25 mg Nystatin (Nystop Topical Powder) 1 applic TOP BID [facility] Last Admin: 02/01/17 18:09 Dose: Not Given Ondansetron HCl (Zofran Inj) 4 mg IVP Q6 PRN PRN Reason: Nausea/Vomiting Last Admin: 09/19/16 10:26 Dose: 4 mg Pantoprazole Sodium (Protonix Ec Tab) 40 mg PO DAILY [facility] Last Admin: 02/01/17 10:15 Dose: 40 mg Repaglinide (Prandin) 2 mg PO TIDAC [facility] Last Admin: 02/01/17 17:48 Dose: 2 mg Sennosides (Senokot Tab) 25.8 mg PO HS [facility] Last Admin: 02/01/17 21:40 Dose: 25.8 mg Sevelamer HCl (Renagel) 1,600 mg PO TIDWM [facility] Last Admin: 02/01/17 17:48 Dose: 1,600 mg Simethicone (Mylicon Chew Tab) 80 mg PO Q4H PRN PRN Reason: flatulence or "gassy feeling:" Last Admin: 02/01/17 10:13 Dose: 80 mg Topiramate (Topamax) 50 mg PO BID [facility] Last Admin: 02/01/17 17:49 Dose: 50 mg Vitamin B Complex/Vit C/Folic Acid (Nephro-Ajay) 1 tab PO DAILY [facility] Last Admin: 02/01/17 10:13 Dose: 1 tab - Labs Labs: 01/31/17 09:15 01/31/17 09:15 PT 15.3 Seconds (9.8-13.1) H 12/02/16 13:05 INR 1.4 (0.9-1.2) H 12/02/16 13:05 APTT 37.0 Seconds (25.6-37.1) 12/02/16 13:05 Assessment and Plan (1) Diabetes Status: Chronic (2) ESRD (end stage renal disease) Status: Chronic (3) Cellulitis of leg Status: Chronic (4) Hyperlipidemia Status: Chronic (5) Back pain Status: Acute (6) Bacteremia due to Gram-negative bacteria Status: Acute (7) PVD (peripheral vascular disease) Status: Chronic (8) Osteomyelitis of right leg Status: Acute
--- NOTE | 2017-02-02 01:58 | PN ---
ENDO FOLLOWUP NOTE DATE: LOCATION: Room 661. This is a 46-year-old female with recent uncontrolled type 2 insulin-requiring diabetes, now being followed closely for metabolic management. Her oral intake remains quite variable at this time with fluctuating glycemic levels as expected. Her glucose levels today have ranged from 73-96 mg/dl. So at this time, we will actually modify once again her basal and bolus insulin regimen and lower the Levemir to 24 units subcu at bedtime daily to start tonight. We will also lower her Humalog down to 6 units subcu t.i.d. before meals as ordered. We will titrate incremental as indicated to optimize metabolic control. We will follow and advise accordingly. Irene Ambrose MD
[2017-02-02] MEDS: Insulin Lispro (humaLOG) 100 Units/ml Inj SC SCH ×3 (08:44→17:45)
[2017-02-02] MEDS: Pantoprazole 40 mg EC Tab PO SCH (08:45)
[2017-02-02] MEDS: Multivitamin Vitamin B Complex (Nephro-Vite) Tab PO SCH (08:46)
--- NOTE | 2017-02-02 09:29 | PN ---
ENDOCRINOLOGY FOLLOWUP NOTE LOCATION: Room #661. This is a 46-year-old female with recent uncontrolled type 2 insulin-requiring diabetes with ongoing IV antibiotic management for right lower BKA stump osteomyelitis as noted. Her glycemic levels are improving at this time with low-normal glycemic profile yesterday and today's glucose is 119 mg/dL. So, at this time, we will continue the modified basal and bolus insulin regimen to allow for dose equilibration and keep her on the Levemir given as 24 units subQ at bedtime daily with Humalog given as 6 units subQ t.i.d. before meals as ordered. We will titrate incrementally as indicated to optimize metabolic control. We will follow and advise accordingly. Irene Ambrose MD
[2017-02-02] MEDS: Santyl Collagenase OINTMENT TOP SCH (10:15)
[2017-02-02 11:42] LABS: ALB/GLOB RATIO 0.9 (1.0-2.1); BILIRUBIN,TOTAL 0.5 mg/dl (0.2-1.3); TOTAL PROTEIN 8.1 G/DL (6.3-8.2)
--- NOTE | 2017-02-02 20:57 | CP.PCM.PN ---
Subjective - Date & Time of Evaluation Date of Evaluation: 02/02/17 Time of Evaluation: 17:00 - Subjective Subjective: Patient had an uneventful day. No fevers, pains, cough, or dyspnea Glucoses ranged form 73 to 164. Transaminases remain mildly elevated but not changed from before. Dr. Lemon gave a dose of Vancomycin and will order additional doses post dialysis. Random vanco level was 6. She continues on ceftazidime/avibactam and gentamicin. Gentamicin trough level was 2.4. Eliquis was discontinued by the [employer], but fortunately her nurse caught this and I was able to reorder it. Other meds reviewed and renewed. Objective - Vital Signs/Intake and Output Vital Signs (last 24 hours): Temp Pulse Resp BP Pulse Ox 98.4 F 95 H 20 103/64 95 02/02/17 16:56 02/02/17 16:56 02/02/17 16:56 02/02/17 16:56 02/02/17 16:56 - Medications Medications: Current Medications Acetaminophen (Tylenol 325mg Tab) 650 mg PO Q4 PRN PRN Reason: Fever >100.4 F Last Admin: 12/26/16 19:40 Dose: 650 mg Acetaminophen (Tylenol 325mg Tab) 650 mg PO Q4 PRN PRN Reason: Pain, moderate (4-7) Last Admin: 01/20/17 11:28 Dose: 650 mg Apixaban (Eliquis) 5 mg PO BID [facility] PRN Reason: Protocol Last Admin: 02/02/17 17:46 Dose: 5 mg Aspirin (Ecotrin) 81 mg PO DAILY [facility] Last Admin: 02/02/17 08:46 Dose: 81 mg Atorvastatin Calcium (Lipitor) 40 mg PO DAILY [facility] Last Admin: 02/02/17 08:45 Dose: 40 mg Calcitriol (Rocaltrol) 0.25 mcg PO DAILY [facility] Last Admin: 02/02/17 08:46 Dose: 0.25 mcg Calcium Carbonate (Oscal) 500 mg PO BIDWM [facility] Last Admin: 02/02/17 17:50 Dose: 500 mg Collagenase (Santyl) 1 applic TOP DAILY [facility] Last Admin: 02/02/17 10:15 Dose: 1 applic Diphenhydramine HCl (Benadryl) 25 mg PO Q6 PRN PRN Reason: Itching / Pruritus Last Admin: 12/17/16 09:53 Dose: 25 mg Docusate Sodium (Colace) 100 mg PO BID [facility] Last Admin: 02/02/17 17:47 Dose: 100 mg Epoetin Tha (Procrit) 4,000 unit IV [facility] Last Admin: 01/31/17 09:30 Dose: 4,000 unit Ergocalciferol (Drisdol 50,000 Intl Units Cap) 1 cap PO WED [facility] Last Admin: 01/29/17 08:19 Dose: 1 cap Fluconazole (Diflucan) 100 mg PO DAILY [facility] Last Admin: 02/02/17 08:46 Dose: 100 mg Gabapentin (Neurontin) 300 mg PO TID [facility] Last Admin: 02/02/17 17:46 Dose: 300 mg Guaifenesin/Dextromethorphan (Robitussin Dm) 10 ml PO Q4 PRN PRN Reason: Cough Last Admin: 01/13/17 10:51 Dose: 10 ml Hydrocortisone (Anusol-Hc) 1 applic [place] BID PRN PRN Reason: Inflammation Hydromorphone HCl (Dilaudid) 1 mg IVP Q4H PRN PRN Reason: Pain, severe (8-10) Last Admin: 02/02/17 18:44 Dose: 1 mg Hydromorphone HCl (Dilaudid) 2 mg PO Q4 PRN PRN Reason: Pain, moderate (4-7) Sodium Chloride (Sodium Chloride 0.45%) 500 mls @ 10 mls/hr IV .Q24H [facility] Last Admin: 02/02/17 17:47 Dose: 10 mls/hr Ceftazidime/Avibactam 0.94 gm/ (Sodium Chloride) 100 mls @ 50 mls/hr IV QOTHERDAY@2200 [facility] Last Admin: 02/01/17 21:31 Dose: 50 mls/hr Vancomycin HCl 500 mg/ Sodium (Chloride) 100 mls @ 100 mls/hr IVPB [facility] [place] Gentamicin Sulfate 40 mg/ (Sodium Chloride) 50 mls @ 50 mls/hr IVPB [facility] [place] Insulin Detemir (Levemir) 24 units SC HS [facility] Insulin Human Lispro (Humalog) 6 units SC ACTID [facility] Last Admin: 02/02/17 17:45 Dose: 6 units Levalbuterol HCl (Xopenex) 0.63 mg INH RQ8 PRN PRN Reason: Shortness of Breath Metoprolol Tartrate (Lopressor) 25 mg PO Q12 [facility] Last Admin: 02/02/17 08:45 Dose: 25 mg Nystatin (Nystop Topical Powder) 1 applic TOP BID [facility] Last Admin: 02/02/17 17:46 Dose: Not Given Ondansetron HCl (Zofran Inj) 4 mg IVP Q6 PRN PRN Reason: Nausea/Vomiting Last Admin: 09/19/16 10:26 Dose: 4 mg Pantoprazole Sodium (Protonix Ec Tab) 40 mg PO DAILY [facility] Last Admin: 02/02/17 08:45 Dose: 40 mg Repaglinide (Prandin) 2 mg PO TIDAC [facility] Last Admin: 02/02/17 17:46 Dose: 2 mg Sennosides (Senokot Tab) 25.8 mg PO HS [facility] Last Admin: 02/01/17 21:40 Dose: 25.8 mg Sevelamer HCl (Renagel) 1,600 mg PO TIDWM [facility] Last Admin: 02/02/17 17:50 Dose: 1,600 mg Simethicone (Mylicon Chew Tab) 80 mg PO Q4H PRN PRN Reason: flatulence or "gassy feeling:" Last Admin: 02/01/17 10:13 Dose: 80 mg Topiramate (Topamax) 50 mg PO BID [facility] Last Admin: 02/02/17 17:47 Dose: 50 mg Vitamin B Complex/Vit C/Folic Acid (Nephro-Ajay) 1 tab PO DAILY [facility] Last Admin: 02/02/17 08:46 Dose: 1 tab - Labs Labs: 01/31/17 09:15 01/31/17 09:15 PT 15.3 Seconds (9.8-13.1) H 12/02/16 13:05 INR 1.4 (0.9-1.2) H 12/02/16 13:05 APTT 37.0 Seconds (25.6-37.1) 12/02/16 13:05 Assessment and Plan (1) Status post below knee amputation of right lower extremity Status: Acute (2) ESRD (end stage renal disease) on dialysis Status: Chronic (3) DM type 2 (diabetes mellitus, type 2) Status: Chronic (4) Peripheral arterial occlusive disease Status: Chronic (5) Coagulopathy Status: Chronic (6) Seizure disorder Status: Acute (7) Elevated liver enzymes Status: Acute
[2017-02-02] MEDS: Insulin Detemir 100 Units/ml Inj SC SCH (22:16)
--- NOTE | 2017-02-02 23:36 | CP.PCM.PN ---
Subjective - Date & Time of Evaluation Date of Evaluation: 02/02/17 Time of Evaluation: 21:00 - Subjective Subjective: Clinically, she is doing well and is eating and drinking and moving her bowel and is receiving Hemodialysis M,W,F. She is receiving appropriate antibiotic treatment for her Osteomyelitis and is having better Glucose levels. She has normal Vital Signs. There is no Seizures. The main question here is does she have a gll bladder stone ? Objective - Vital Signs/Intake and Output Vital Signs (last 24 hours): Temp Pulse Resp BP Pulse Ox 98.4 F 90 20 90/43 L 95 02/02/17 16:56 02/02/17 21:27 02/02/17 16:56 02/02/17 21:27 02/02/17 16:56 - Medications Medications: Current Medications Acetaminophen (Tylenol 325mg Tab) 650 mg PO Q4 PRN PRN Reason: Fever >100.4 F Last Admin: 12/26/16 19:40 Dose: 650 mg Acetaminophen (Tylenol 325mg Tab) 650 mg PO Q4 PRN PRN Reason: Pain, moderate (4-7) Last Admin: 01/20/17 11:28 Dose: 650 mg Apixaban (Eliquis) 5 mg PO BID [facility] PRN Reason: Protocol Last Admin: 02/02/17 17:46 Dose: 5 mg Aspirin (Ecotrin) 81 mg PO DAILY [facility] Last Admin: 02/02/17 08:46 Dose: 81 mg Atorvastatin Calcium (Lipitor) 40 mg PO DAILY [facility] Last Admin: 02/02/17 08:45 Dose: 40 mg Calcitriol (Rocaltrol) 0.25 mcg PO DAILY [facility] Last Admin: 02/02/17 08:46 Dose: 0.25 mcg Calcium Carbonate (Oscal) 500 mg PO BIDWM [facility] Last Admin: 02/02/17 17:50 Dose: 500 mg Collagenase (Santyl) 1 applic TOP DAILY [facility] Last Admin: 02/02/17 10:15 Dose: 1 applic Diphenhydramine HCl (Benadryl) 25 mg PO Q6 PRN PRN Reason: Itching / Pruritus Last Admin: 12/17/16 09:53 Dose: 25 mg Docusate Sodium (Colace) 100 mg PO BID [facility] Last Admin: 02/02/17 17:47 Dose: 100 mg Epoetin Tha (Procrit) 4,000 unit IV MWF [facility] Last Admin: 01/31/17 09:30 Dose: 4,000 unit Ergocalciferol (Drisdol 50,000 Intl Units Cap) 1 cap PO WED [facility] Last Admin: 01/29/17 08:19 Dose: 1 cap Fluconazole (Diflucan) 100 mg PO DAILY [facility] Last Admin: 02/02/17 08:46 Dose: 100 mg Gabapentin (Neurontin) 300 mg PO TID [facility] Last Admin: 02/02/17 17:46 Dose: 300 mg Guaifenesin/Dextromethorphan (Robitussin Dm) 10 ml PO Q4 PRN PRN Reason: Cough Last Admin: 01/13/17 10:51 Dose: 10 ml Hydrocortisone (Anusol-Hc) 1 applic [place] BID PRN PRN Reason: Inflammation Hydromorphone HCl (Dilaudid) 1 mg IVP Q4H PRN PRN Reason: Pain, severe (8-10) Last Admin: 02/02/17 18:44 Dose: 1 mg Hydromorphone HCl (Dilaudid) 2 mg PO Q4 PRN PRN Reason: Pain, moderate (4-7) Sodium Chloride (Sodium Chloride 0.45%) 500 mls @ 10 mls/hr IV .Q24H [facility] Last Admin: 02/02/17 17:47 Dose: 10 mls/hr Ceftazidime/Avibactam 0.94 gm/ (Sodium Chloride) 100 mls @ 50 mls/hr IV QOTHERDAY@2200 [facility] Last Admin: 02/01/17 21:31 Dose: 50 mls/hr Vancomycin HCl 500 mg/ Sodium (Chloride) 100 mls @ 100 mls/hr IVPB [facility] Gentamicin Sulfate 40 mg/ (Sodium Chloride) 50 mls @ 50 mls/hr IVPB [facility] [place] Insulin Detemir (Levemir) 24 units SC HS [facility] Last Admin: 02/02/17 22:16 Dose: 24 u Insulin Human Lispro (Humalog) 6 units SC ACTID [facility] Last Admin: 02/02/17 17:45 Dose: 6 units Levalbuterol HCl (Xopenex) 0.63 mg INH RQ8 PRN PRN Reason: Shortness of Breath Metoprolol Tartrate (Lopressor) 25 mg PO Q12 [facility] Last Admin: 02/02/17 21:27 Dose: Not Given Nystatin (Nystop Topical Powder) 1 applic TOP BID [facility] Last Admin: 02/02/17 17:46 Dose: Not Given Ondansetron HCl (Zofran Inj) 4 mg IVP Q6 PRN PRN Reason: Nausea/Vomiting Last Admin: 09/19/16 10:26 Dose: 4 mg Pantoprazole Sodium (Protonix Ec Tab) 40 mg PO DAILY [facility] Last Admin: 02/02/17 08:45 Dose: 40 mg Repaglinide (Prandin) 2 mg PO TIDAC [facility] Last Admin: 02/02/17 17:46 Dose: 2 mg Sennosides (Senokot Tab) 25.8 mg PO HS [facility] Last Admin: 02/02/17 22:15 Dose: 25.8 mg Sevelamer HCl (Renagel) 1,600 mg PO TIDWM [facility] Last Admin: 02/02/17 17:50 Dose: 1,600 mg Simethicone (Mylicon Chew Tab) 80 mg PO Q4H PRN PRN Reason: flatulence or "gassy feeling:" Last Admin: 02/01/17 10:13 Dose: 80 mg Topiramate (Topamax) 50 mg PO BID [facility] Last Admin: 02/02/17 17:47 Dose: 50 mg Vitamin B Complex/Vit C/Folic Acid (Nephro-Ajay) 1 tab PO DAILY [facility] Last Admin: 02/02/17 08:46 Dose: 1 tab - Labs Labs: 01/31/17 09:15 01/31/17 09:15 PT 15.3 Seconds (9.8-13.1) H 12/02/16 13:05 INR 1.4 (0.9-1.2) H 12/02/16 13:05 APTT 37.0 Seconds (25.6-37.1) 12/02/16 13:05 Assessment and Plan (1) Diabetes Status: Chronic (2) ESRD (end stage renal disease) Status: Chronic (3) Cellulitis of leg Status: Chronic (4) Hyperlipidemia Status: Chronic (5) Back pain Status: Acute (6) Bacteremia due to Gram-negative bacteria Status: Acute (7) PVD (peripheral vascular disease) Status: Chronic (8) Osteomyelitis of right leg Status: Acute
--- NOTE | 2017-02-03 08:18 | CP.PCM.PN ---
Subjective - Date & Time of Evaluation Date of Evaluation: 02/03/17 Time of Evaluation: 08:14 - Subjective Subjective: Patient is on hemodialysis. Nurse just changed R subclavian Permacath dressing - the site looks very good and the Permacath is working well. Gallstones were noted on abdominal ultrasound, but there is no sign of obstruction, no gb wall thickening. Ramos's sign is negative. The patient has no pain or nausea. So we will let sleeping gallstone lie. Glucose = 114. Per Dr. Ambrose now on Levemir 24 units hs and Humalog 6 units tid ac. Now on IV certazidime/avibactam, gentamicin (now 60 mg MWF), and vancomycin ( 500mg MWF) for right BK and patellar infection (following surgery for osteomyelitis of the ankle / lower leg. Dr. Lemon is managing the antibiotics. Blood pressure and pulse are well controlled on metoprolol tartrate. Objective - Vital Signs/Intake and Output Vital Signs (last 24 hours): Temp Pulse Resp BP Pulse Ox 97.6 F 61 19 107/58 L 100 02/02/17 23:56 02/02/17 23:56 02/02/17 23:56 02/02/17 23:56 02/02/17 23:56 - Medications Medications: Current Medications Acetaminophen (Tylenol 325mg Tab) 650 mg PO Q4 PRN PRN Reason: Fever >100.4 F Last Admin: 12/26/16 19:40 Dose: 650 mg Acetaminophen (Tylenol 325mg Tab) 650 mg PO Q4 PRN PRN Reason: Pain, moderate (4-7) Last Admin: 01/20/17 11:28 Dose: 650 mg Apixaban (Eliquis) 5 mg PO BID [facility] PRN Reason: Protocol Last Admin: 02/02/17 17:46 Dose: 5 mg Aspirin (Ecotrin) 81 mg PO DAILY [facility] Last Admin: 02/02/17 08:46 Dose: 81 mg Atorvastatin Calcium (Lipitor) 40 mg PO DAILY [facility] Last Admin: 02/02/17 08:45 Dose: 40 mg Calcitriol (Rocaltrol) 0.25 mcg PO DAILY [facility] Last Admin: 02/02/17 08:46 Dose: 0.25 mcg Calcium Carbonate (Oscal) 500 mg PO BIDWM [facility] Last Admin: 09/24/17 17:50 Dose: 500 mg Collagenase (Santyl) 1 applic TOP DAILY [facility] Last Admin: 02/02/17 10:15 Dose: 1 applic Diphenhydramine HCl (Benadryl) 25 mg PO Q6 PRN PRN Reason: Itching / Pruritus Last Admin: 12/17/16 09:53 Dose: 25 mg Docusate Sodium (Colace) 100 mg PO BID [facility] Last Admin: 02/02/17 17:47 Dose: 100 mg Epoetin Tha (Procrit) 4,000 unit IV [facility] [place] Last Admin: 01/31/17 09:30 Dose: 4,000 unit Ergocalciferol (Drisdol 50,000 Intl Units Cap) 1 cap PO WED [facility] Last Admin: 01/29/17 08:19 Dose: 1 cap Fluconazole (Diflucan) 100 mg PO DAILY [facility] Last Admin: 02/02/17 08:46 Dose: 100 mg Gabapentin (Neurontin) 300 mg PO TID [facility] Last Admin: 02/02/17 17:46 Dose: 300 mg Guaifenesin/Dextromethorphan (Robitussin Dm) 10 ml PO Q4 PRN PRN Reason: Cough Last Admin: 01/13/17 10:51 Dose: 10 ml Hydrocortisone (Anusol-Hc) 1 applic [place] BID PRN PRN Reason: Inflammation Hydromorphone HCl (Dilaudid) 1 mg IVP Q4H PRN PRN Reason: Pain, severe (8-10) Last Admin: 02/03/17 05:42 Dose: 1 mg Hydromorphone HCl (Dilaudid) 2 mg PO Q4 PRN PRN Reason: Pain, moderate (4-7) Sodium Chloride (Sodium Chloride 0.45%) 500 mls @ 10 mls/hr IV .Q24H [facility] Last Admin: 02/02/17 17:47 Dose: 10 mls/hr Ceftazidime/Avibactam 0.94 gm/ (Sodium Chloride) 100 mls @ 50 mls/hr IV QOTHERDAY@2200 [facility] Last Admin: 02/01/17 21:31 Dose: 50 mls/hr Vancomycin HCl 500 mg/ Sodium (Chloride) 100 mls @ 100 mls/hr IVPB [facility] [place] Gentamicin Sulfate 40 mg/ (Sodium Chloride) 50 mls @ 50 mls/hr IVPB [facility] [place] Insulin Detemir (Levemir) 24 units SC HS [facility] Last Admin: 02/02/17 22:16 Dose: 24 u Insulin Human Lispro (Humalog) 6 units SC ACTID [facility] Last Admin: 02/02/17 17:45 Dose: 6 units Levalbuterol HCl (Xopenex) 0.63 mg INH RQ8 PRN PRN Reason: Shortness of Breath Metoprolol Tartrate (Lopressor) 25 mg PO Q12 [facility] Last Admin: 02/02/17 21:27 Dose: Not Given Nystatin (Nystop Topical Powder) 1 applic TOP BID [facility] Last Admin: 02/02/17 17:46 Dose: Not Given Ondansetron HCl (Zofran Inj) 4 mg IVP Q6 PRN PRN Reason: Nausea/Vomiting Last Admin: 09/19/16 10:26 Dose: 4 mg Pantoprazole Sodium (Protonix Ec Tab) 40 mg PO DAILY [facility] Last Admin: 02/02/17 08:45 Dose: 40 mg Repaglinide (Prandin) 2 mg PO TIDAC [facility] Last Admin: 02/02/17 17:46 Dose: 2 mg Sennosides (Senokot Tab) 25.8 mg PO HS [facility] Last Admin: 02/02/17 22:15 Dose: 25.8 mg Sevelamer HCl (Renagel) 1,600 mg PO TIDWM [facility] Last Admin: 02/02/17 17:50 Dose: 1,600 mg Simethicone (Mylicon Chew Tab) 80 mg PO Q4H PRN PRN Reason: flatulence or "gassy feeling:" Last Admin: 02/01/17 10:13 Dose: 80 mg Topiramate (Topamax) 50 mg PO BID [facility] Last Admin: 02/02/17 17:47 Dose: 50 mg Vitamin B Complex/Vit C/Folic Acid (Nephro-Ajay) 1 tab PO DAILY [facility] Last Admin: 02/02/17 08:46 Dose: 1 tab - Labs Labs: 01/31/17 09:15 01/31/17 09:15 PT 15.3 Seconds (9.8-13.1) H 12/02/16 13:05 INR 1.4 (0.9-1.2) H 12/02/16 13:05 APTT 37.0 Seconds (25.6-37.1) 12/02/16 13:05 - Constitutional Appears: No Acute Distress - Head Exam Head Exam: NORMAL INSPECTION - Eye Exam Eye Exam: Normal appearance - ENT Exam ENT Exam: Mucous Membranes Moist - Neck Exam Neck Exam: Normal Inspection - Respiratory Exam Respiratory Exam: Clear to Ausculation Bilateral, NORMAL BREATHING PATTERN - Cardiovascular Exam Cardiovascular Exam: REGULAR RHYTHM, +S1, +S2 - GI/Abdominal Exam GI & Abdominal Exam: Soft - Extremities Exam Additional comments: Wound vac and dressings intact. - Back Exam Back Exam: NORMAL INSPECTION - Neurological Exam Neurological Exam: Alert, CN II-XII Intact, Oriented x3 - Psychiatric Exam Psychiatric exam: Normal Affect, Normal Mood - Skin Skin Exam: Dry, Normal Color, Warm Assessment and Plan (1) Status post below knee amputation of right lower extremity Status: Acute (2) ESRD (end stage renal disease) on dialysis Status: Chronic (3) DM type 2 (diabetes mellitus, type 2) Status: Chronic (4) Peripheral arterial occlusive disease Status: Chronic (5) Coagulopathy Status: Chronic (6) Seizure disorder Status: Acute (7) Elevated liver enzymes Status: Acute
[2017-02-03] MEDS: Insulin Lispro (humaLOG) 100 Units/ml Inj SC SCH ×3 (08:22→16:24)
[2017-02-03] MEDS: Multivitamin Vitamin B Complex (Nephro-Vite) Tab PO SCH (08:25)
[2017-02-03] MEDS: Epoetin Alfa 4000 UNIT/ML Inj IV SCH (08:27)
[2017-02-03] MEDS: Pantoprazole 40 mg EC Tab PO SCH (08:28)
[2017-02-03] MEDS: Simethicone 80 mg Chewtab PO PRN (08:44)
--- NOTE | 2017-02-03 09:37 | PN ---
DATE: FOLLOWUP NEPHROLOGY NOTE CHIEF COMPLAINT: None at this time. She feels good. HISTORY OF PRESENT ILLNESS AND REVIEW OF SYSTEMS: No overnight events. The patient denies any complaints of chest pain, palpitations, shortness of breath, cough. No fever or chills. PHYSICAL EXAMINATION: GENERAL: She appears comfortable, sitting in the bed. VITAL SIGNS: Afebrile. Pulse is 97, blood pressure 147/76. LUNGS: Bilateral vesicular sound clear. Bilateral air entry normal and symmetrical. CARDIOVASCULAR: S1 and S2 normal. No murmur, no rub, or gallop. ABDOMEN: Soft and nontender. No organomegaly. EXTREMITIES: Right AKA and left BKA. He has a Perma-Cath. WORKUP: Last labs on 01/31/2017 shows white blood count is 8.5, hemoglobin is 12.2, platelet count 170. Potassium is 4.7, creatinine is 7.3, glucose is 110. ASSESSMENT: Overall condition is stable. 1. Right osteomyelitis, status post below-knee amputation and then above-knee amputation. 2. End-stage renal disease on hemodialysis by Perma-Cath. 3. Anemia. 4. Diabetic kidney disease and hypertensive chronic kidney disease. 5. Hyperphosphatemia secondary to hyperparathyroidism. 6. History of protein C/S deficiency, on long-term anticoagulants. RECOMMENDATIONS: No acute need for dialysis today. We will plan for dialysis tomorrow as per [facility] schedule. Continue with a low-dose Epogen. She is also on calcitriol, continue the phosphorus binder. Antibiotic as per the primary time. She otherwise remains stable. All questions were answered. Hernan Andino MD
--- NOTE | 2017-02-03 09:38 | PN ---
DATE: CHIEF COMPLAINT: None at this time, the patient is in usual health. HISTORY OF PRESENT ILLNESS AND REVIEW OF SYSTEM: The patient offered no complaint of any nausea, vomiting, chest pain, palpitation, shortness of breath, cough, or phlegm. She had a dialysis done yesterday. She tolerated it well. PHYSICAL EXAMINATION GENERAL: She looks comfortable, not in acute distress. VITAL SIGNS: Afebrile, pulse is 93, blood pressure 141/63. LUNGS: Better respiration, clear. CARDIOVASCULAR: S1 and S2 normal. No murmur. ABDOMEN: Soft and nontender. No organomegaly. EXTREMITIES: Right AKA and history of left BKA. ACCESS: The patient has a Perm-A-Cath. LABORATORY DATA: Labs shows white blood cell count is 8.5, hemoglobin 12.2, platelet count of 170. Sodium is 140, potassium 4.7, creatinine is 7.3. Glucose is 110. MEDICATIONS: Current medications are reviewed. ASSESSMENT: 1. He has had hemodialysis by Perm-A-Cath. 2. Anemia and hyperphosphatemia secondary to hyperparathyroidism. 3. History of osteomyelitis status post right below-knee amputation, then right above-knee amputation. 4. Hypertension. 5. History of allergy to heparin and coagulopathy due to protein C/S deficiency. RECOMMENDATIONS: No acute need for dialysis today. We will plan for next dialysis on Friday. Continue multivitamin per day. Hemoglobin is stable. She is on low dose Epogen. Continue with phosphate binder. She is also on low dose calcitriol. All questions answered. Hernan Andino MD
[2017-02-03 09:48] LABS: BILIRUBIN,TOTAL 0.5 mg/dl (0.2-1.3); TOTAL PROTEIN 7.9 G/DL (6.3-8.2)
--- NOTE | 2017-02-03 10:11 | CP.PCM.PN ---
Subjective - Date & Time of Evaluation Date of Evaluation: 02/03/17 Time of Evaluation: 10:09 - Subjective Subjective: She was seen on hemodialysis right now Ultrafiltration goal 3000 mL Vital signs stable Lab reviewed Chest no rales Heart no rubs Abdomen soft Extremity no edema Impression and plan End stage renal disease continue dialysis Friday.. Patient is tolerating very well. Patient is in good mood No new events reported Continue the same management as noted per primary team. Objective - Vital Signs/Intake and Output Vital Signs (last 24 hours): Temp Pulse Resp BP Pulse Ox 98 F 95 H 18 148/72 96 02/03/17 08:25 02/03/17 08:25 02/03/17 08:25 02/03/17 08:25 02/03/17 08:25 - Medications Medications: Current Medications Acetaminophen (Tylenol 325mg Tab) 650 mg PO Q4 PRN PRN Reason: Fever >100.4 F Last Admin: 12/26/16 19:40 Dose: 650 mg Acetaminophen (Tylenol 325mg Tab) 650 mg PO Q4 PRN PRN Reason: Pain, moderate (4-7) Last Admin: 01/20/17 11:28 Dose: 650 mg Apixaban (Eliquis) 5 mg PO BID [facility] PRN Reason: Protocol Last Admin: 02/03/17 08:21 Dose: 5 mg Aspirin (Ecotrin) 81 mg PO DAILY [facility] Last Admin: 02/03/17 08:22 Dose: 81 mg Atorvastatin Calcium (Lipitor) 40 mg PO DAILY [facility] Last Admin: 02/03/17 08:25 Dose: 40 mg Calcitriol (Rocaltrol) 0.25 mcg PO DAILY [facility] Last Admin: 02/03/17 08:29 Dose: 0.25 mcg Calcium Carbonate (Oscal) 500 mg PO BIDWM [facility] Last Admin: 02/03/17 08:26 Dose: 500 mg Collagenase (Santyl) 1 applic TOP DAILY [facility] Last Admin: 02/02/17 10:15 Dose: 1 applic Diphenhydramine HCl (Benadryl) 25 mg PO Q6 PRN PRN Reason: Itching / Pruritus Last Admin: 12/17/16 09:53 Dose: 25 mg Docusate Sodium (Colace) 100 mg PO BID [facility] Last Admin: 02/03/17 08:20 Dose: 100 mg Ergocalciferol (Drisdol 50,000 Intl Units Cap) 1 cap PO WED [facility] Last Admin: 01/29/17 08:19 Dose: 1 cap Fluconazole (Diflucan) 100 mg PO DAILY [facility] Last Admin: 02/03/17 08:30 Dose: 100 mg Gabapentin (Neurontin) 300 mg PO TID [facility] Last Admin: 02/03/17 08:21 Dose: 300 mg Guaifenesin/Dextromethorphan (Robitussin Dm) 10 ml PO Q4 PRN PRN Reason: Cough Last Admin: 01/13/17 10:51 Dose: 10 ml Hydrocortisone (Anusol-Hc) 1 applic [place] BID PRN PRN Reason: Inflammation Hydromorphone HCl (Dilaudid) 1 mg IVP Q4H PRN PRN Reason: Pain, severe (8-10) Last Admin: 02/03/17 09:55 Dose: 1 mg Hydromorphone HCl (Dilaudid) 2 mg PO Q4 PRN PRN Reason: Pain, moderate (4-7) Sodium Chloride (Sodium Chloride 0.45%) 500 mls @ 10 mls/hr IV .Q24H [facility] Last Admin: 02/02/17 17:47 Dose: 10 mls/hr Ceftazidime/Avibactam 0.94 gm/ (Sodium Chloride) 100 mls @ 50 mls/hr IV QOTHERDAY@2200 [facility] Last Admin: 02/01/17 21:31 Dose: 50 mls/hr Vancomycin HCl 500 mg/ Sodium (Chloride) 100 mls @ 100 mls/hr [place] [facility] Gentamicin Sulfate 40 mg/ (Sodium Chloride) 50 mls @ 50 mls/hr [place] [facility] Insulin Detemir (Levemir) 24 units SC HS [facility] Last Admin: 02/02/17 22:16 Dose: 24 u Insulin Human Lispro (Humalog) 6 units SC ACTID [facility] Last Admin: 02/03/17 08:22 Dose: 6 units Levalbuterol HCl (Xopenex) 0.63 mg INH RQ8 PRN PRN Reason: Shortness of Breath Metoprolol Tartrate (Lopressor) 25 mg PO Q12 [facility] Last Admin: 02/03/17 08:34 Dose: Not Given Nystatin (Nystop Topical Powder) 1 applic TOP BID [facility] Last Admin: 02/03/17 09:45 Dose: 1 applic Ondansetron HCl (Zofran Inj) 4 mg IVP Q6 PRN PRN Reason: Nausea/Vomiting Last Admin: 09/19/16 10:26 Dose: 4 mg Pantoprazole Sodium (Protonix Ec Tab) 40 mg PO DAILY [facility] Last Admin: 02/03/17 08:28 Dose: 40 mg Repaglinide (Prandin) 2 mg PO TIDAC [facility] Last Admin: 02/03/17 08:27 Dose: 2 mg Sennosides (Senokot Tab) 25.8 mg PO HS [facility] Last Admin: 02/02/17 22:15 Dose: 25.8 mg Sevelamer HCl (Renagel) 1,600 mg PO TIDWM [facility] Last Admin: 02/02/17 17:50 Dose: 1,600 mg Simethicone (Mylicon Chew Tab) 80 mg PO Q4H PRN PRN Reason: flatulence or "gassy feeling:" Last Admin: 02/03/17 08:44 Dose: 80 mg Topiramate (Topamax) 50 mg PO BID [facility] Last Admin: 02/03/17 08:21 Dose: 50 mg Vitamin B Complex/Vit C/Folic Acid (Nephro-Ajay) 1 tab PO DAILY [facility] Last Admin: 02/03/17 08:25 Dose: 1 tab - Labs Labs: 01/31/17 09:15 01/31/17 09:15 PT 15.3 Seconds (9.8-13.1) H 12/02/16 13:05 INR 1.4 (0.9-1.2) H 12/02/16 13:05 APTT 37.0 Seconds (25.6-37.1) 12/02/16 13:05 Assessment and Plan (1) ESRD (end stage renal disease) Status: Chronic (2) Cellulitis of leg Status: Chronic
[2017-02-03] MEDS: Gentamicin 40 MG in Sodium Chloride 0.9% 50 ML IVPB SCH (11:38)
[2017-02-03] MEDS: Santyl Collagenase OINTMENT TOP SCH (16:20)
--- NOTE | 2017-02-03 19:39 | PN ---
DATE: ENDOCRINOLOGY FOLLOWUP NOTE LOCATION: Room 664. This is a 46-year-old female with recent uncontrolled type 2 insulin requiring diabetes, now being followed closely for metabolic management. Her glycemic levels are fluctuating but much improved at this time and the latest glucose levels have ranged from 113 to 164 and 189 mg/dL. She has ongoing IV antibiotic management for underlying right below-knee amputation stump osteomyelitis as noted thereof. For now, we will continue the same basal and bolus insulin regimen as ordered with Humalog given at 6 units subQ t.i.d. before meals as given. We will continue the basal insulin given as Levemir at 24 units subQ at bedtime daily as ordered. We will titrate incrementally as dictated to optimize metabolic control. We will follow. Irene Ambrose MD
[2017-02-03] MEDS: Insulin Detemir 100 Units/ml Inj SC SCH (21:57)
--- NOTE | 2017-02-03 23:04 | CP.PCM.PN ---
Subjective - Date & Time of Evaluation Date of Evaluation: 02/03/17 Time of Evaluation: 20:15 - Subjective Subjective: Ultrasonography is showing Gall Bladder Stones. We will D/C Topamax and Start Lamotrigen instead very gradually. This maeve take about 6 weeks until we reach the required dose needed for Seizure Control. There is no seizures. Her Blood Glucose level is accepted between 110 and 190 Her Hemodialysis is on M,W,F. VS are Normal. LFT are going down. Objective - Vital Signs/Intake and Output Vital Signs (last 24 hours): Temp Pulse Resp BP Pulse Ox 97.5 F L 102 H 16 118/73 95 02/03/17 15:47 02/03/17 21:24 02/03/17 15:47 02/03/17 21:24 02/03/17 15:47 - Medications Medications: Current Medications Acetaminophen (Tylenol 325mg Tab) 650 mg PO Q4 PRN PRN Reason: Fever >100.4 F Last Admin: 12/26/16 19:40 Dose: 650 mg Acetaminophen (Tylenol 325mg Tab) 650 mg PO Q4 PRN PRN Reason: Pain, moderate (4-7) Last Admin: 01/20/17 11:28 Dose: 650 mg Apixaban (Eliquis) 5 mg PO BID [facility] PRN Reason: Protocol Last Admin: 02/03/17 16:18 Dose: 5 mg Aspirin (Ecotrin) 81 mg PO DAILY [facility] Last Admin: 02/03/17 08:22 Dose: 81 mg Atorvastatin Calcium (Lipitor) 40 mg PO DAILY [facility] Last Admin: 02/03/17 08:25 Dose: 40 mg Calcitriol (Rocaltrol) 0.25 mcg PO DAILY [facility] Last Admin: 02/03/17 08:29 Dose: 0.25 mcg Calcium Carbonate (Oscal) 500 mg PO BIDWM [facility] Last Admin: 02/03/17 16:23 Dose: 500 mg Collagenase (Santyl) 1 applic TOP DAILY [facility] Last Admin: 02/03/17 16:20 Dose: 1 applic Diphenhydramine HCl (Benadryl) 25 mg PO Q6 PRN PRN Reason: Itching / Pruritus Last Admin: 12/17/16 09:53 Dose: 25 mg Docusate Sodium (Colace) 100 mg PO BID [facility] Last Admin: 02/03/17 16:17 Dose: 100 mg Ergocalciferol (Drisdol 50,000 Intl Units Cap) 1 cap PO WED [facility] Last Admin: 01/29/17 08:19 Dose: 1 cap Fluconazole (Diflucan) 100 mg PO DAILY [facility] Last Admin: 02/03/17 08:30 Dose: 100 mg Gabapentin (Neurontin) 300 mg PO TID [facility] Last Admin: 02/03/17 16:21 Dose: 300 mg Guaifenesin/Dextromethorphan (Robitussin Dm) 10 ml PO Q4 PRN PRN Reason: Cough Last Admin: 01/13/17 10:51 Dose: 10 ml Hydrocortisone (Anusol-Hc) [address] BID PRN PRN Reason: Inflammation Hydromorphone HCl (Dilaudid) 1 mg IVP Q4H PRN PRN Reason: Pain, severe (8-10) Last Admin: 02/03/17 21:53 Dose: 1 mg Hydromorphone HCl (Dilaudid) 2 mg PO Q4 PRN PRN Reason: Pain, moderate (4-7) Last Admin: 02/03/17 18:11 Dose: 2 mg Sodium Chloride (Sodium Chloride 0.45%) 500 mls @ 10 mls/hr IV .Q24H [facility] Last Admin: 02/03/17 16:19 Dose: Not Given Ceftazidime/Avibactam 0.94 gm/ (Sodium Chloride) 100 mls @ 50 mls/hr IV QOTHERDAY@2200 [facility] Last Admin: 02/03/17 21:24 Dose: 50 mls/hr Vancomycin HCl 500 mg/ Sodium (Chloride) 100 mls @ 100 mls/hr [place] [facility] Last Admin: 02/03/17 11:37 Dose: 100 mls/hr Gentamicin Sulfate 40 mg/ (Sodium Chloride) 50 mls @ 50 mls/hr IVPB [facility] Last Admin: 02/03/17 11:38 Dose: 50 mls/hr Insulin Detemir (Levemir) 24 units SC HS [facility] Last Admin: 02/03/17 21:57 Dose: 24 u Insulin Human Lispro (Humalog) 6 units SC ACTID [facility] Last Admin: 02/03/17 16:24 Dose: 6 units Levalbuterol HCl (Xopenex) 0.63 mg INH RQ8 PRN PRN Reason: Shortness of Breath Metoprolol Tartrate (Lopressor) 25 mg PO Q12 [facility] Last Admin: 02/03/17 21:24 Dose: 25 mg Nystatin (Nystop Topical Powder) 1 applic TOP BID [facility] Last Admin: 02/03/17 16:23 Dose: 1 applic Ondansetron HCl (Zofran Inj) 4 mg IVP Q6 PRN PRN Reason: Nausea/Vomiting Last Admin: 09/19/16 10:26 Dose: 4 mg Pantoprazole Sodium (Protonix Ec Tab) 40 mg PO DAILY [facility] Last Admin: 02/03/17 08:28 Dose: 40 mg Repaglinide (Prandin) 2 mg PO TIDAC [facility] Last Admin: 02/03/17 16:18 Dose: 2 mg Sennosides (Senokot Tab) 25.8 mg PO HS [facility] Last Admin: 02/03/17 21:23 Dose: 25.8 mg Sevelamer HCl (Renagel) 1,600 mg PO TIDWM [facility] Last Admin: 02/03/17 16:24 Dose: 1,600 mg Simethicone (Mylicon Chew Tab) 80 mg PO Q4H PRN PRN Reason: flatulence or "gassy feeling:" Last Admin: 02/03/17 08:44 Dose: 80 mg Topiramate (Topamax) 50 mg PO BID [facility] Last Admin: 02/03/17 16:19 Dose: 50 mg Vitamin B Complex/Vit C/Folic Acid (Nephro-Ajay) 1 tab PO DAILY [facility] Last Admin: 02/03/17 08:25 Dose: 1 tab - Labs Labs: 01/31/17 09:15 01/31/17 09:15 PT 15.3 Seconds (9.8-13.1) H 12/02/16 13:05 INR 1.4 (0.9-1.2) H 12/02/16 13:05 APTT 37.0 Seconds (25.6-37.1) 12/02/16 13:05 Assessment and Plan (1) Diabetes Status: Chronic (2) ESRD (end stage renal disease) Status: Chronic (3) Cellulitis of leg Status: Chronic (4) Hyperlipidemia Status: Chronic (5) Back pain Status: Acute (6) Bacteremia due to Gram-negative bacteria Status: Acute (7) PVD (peripheral vascular disease) Status: Chronic (8) Osteomyelitis of right leg Status: Acute (9) Seizures Assessment & Plan: Controlled by Topamax. Unfortunately she has Gall bladder stones as seen by US of the Abdomen. D/C Topamax and start Lamotrigen instead very gradually until we reach 150 mg Q 12 hrs, which is the minimum therapeutic level. A fast dose of Lamotrigen might cause a Titus Wale Syndrome. Status: Acute
[2017-02-04] MEDS: Insulin Lispro (humaLOG) 100 Units/ml Inj SC SCH ×3 (08:50→17:48)
[2017-02-04] MEDS: Multivitamin Vitamin B Complex (Nephro-Vite) Tab PO SCH (08:53)
[2017-02-04] MEDS: Pantoprazole 40 mg EC Tab PO SCH (08:55)
--- NOTE | 2017-02-04 09:09 | CP.PCM.PN ---
Subjective - Date & Time of Evaluation Date of Evaluation: 02/04/17 Time of Evaluation: 07:30 - Subjective Subjective: Consultations appreciated. Dr. Evita Shepard discontinued the erythropoietin since the Hgb has been staying around 12. Dr. Maguire has stopped the Topamax because of gallstones and has begun a gradually increasing dose of lamotrigine. LFT's remain mildly elevated but stable. IV Antibiotic changes by Dr. Lemon and insulin changes by Dr. Ambrose remain as noted yesterday. Am glucose was 175. Patient is comfortable. We are looking forward to wound vac change today and assessment of right patella. BP's and pulse are good on metoprolol. Our goal is now to aim for acute rehab if continued healing permits - Wll discuss with "discharge" planners. Objective - Vital Signs/Intake and Output Vital Signs (last 24 hours): Temp Pulse Resp BP Pulse Ox 97.7 F 90 18 100/47 L 97 02/04/17 07:38 02/04/17 08:52 02/04/17 07:38 02/04/17 08:52 02/04/17 07:38 - Medications Medications: Current Medications Acetaminophen (Tylenol 325mg Tab) 650 mg PO Q4 PRN PRN Reason: Fever >100.4 F Last Admin: 12/26/16 19:40 Dose: 650 mg Acetaminophen (Tylenol 325mg Tab) 650 mg PO Q4 PRN PRN Reason: Pain, moderate (4-7) Last Admin: 01/20/17 11:28 Dose: 650 mg Apixaban (Eliquis) 5 mg PO BID [facility] PRN Reason: Protocol Last Admin: 02/04/17 08:50 Dose: 5 mg Aspirin (Ecotrin) 81 mg PO DAILY [facility] Last Admin: 02/04/17 08:49 Dose: 81 mg Atorvastatin Calcium (Lipitor) 40 mg PO DAILY [facility] Last Admin: 02/04/17 08:52 Dose: 40 mg Calcitriol (Rocaltrol) 0.25 mcg PO DAILY [facility] Last Admin: 02/04/17 08:55 Dose: 0.25 mcg Calcium Carbonate (Oscal) 500 mg PO BIDWM [facility] Last Admin: 02/04/17 08:54 Dose: 500 mg Collagenase (Santyl) 1 applic TOP DAILY [facility] Last Admin: 02/03/17 16:20 Dose: 1 applic Diphenhydramine HCl (Benadryl) 25 mg PO Q6 PRN PRN Reason: Itching / Pruritus Last Admin: 12/17/16 09:53 Dose: 25 mg Docusate Sodium (Colace) 100 mg PO BID [facility] Last Admin: 02/04/17 08:48 Dose: 100 mg Ergocalciferol (Drisdol 50,000 Intl Units Cap) 1 cap PO WED [facility] Last Admin: 01/29/17 08:19 Dose: 1 cap Fluconazole (Diflucan) 100 mg PO DAILY [facility] Last Admin: 02/04/17 08:49 Dose: 100 mg Gabapentin (Neurontin) 300 mg PO TID [facility] Last Admin: 02/04/17 08:53 Dose: 300 mg Guaifenesin/Dextromethorphan (Robitussin Dm) 10 ml PO Q4 PRN PRN Reason: Cough Last Admin: 01/13/17 10:51 Dose: 10 ml Hydrocortisone (Anusol-Hc) 1 applic [place] BID PRN PRN Reason: Inflammation Hydromorphone HCl (Dilaudid) 1 mg IVP Q4H PRN PRN Reason: Pain, severe (8-10) Last Admin: 02/04/17 05:51 Dose: 1 mg Hydromorphone HCl (Dilaudid) 2 mg PO Q4 PRN PRN Reason: Pain, moderate (4-7) Last Admin: 02/03/17 18:11 Dose: 2 mg Sodium Chloride (Sodium Chloride 0.45%) 500 mls @ 10 mls/hr IV .Q24H [facility] Last Admin: 02/03/17 16:19 Dose: Not Given Ceftazidime/Avibactam 0.94 gm/ (Sodium Chloride) 100 mls @ 50 mls/hr IV QOTHERDAY@2200 [facility] Last Admin: 02/03/17 21:24 Dose: 50 mls/hr Vancomycin HCl 500 mg/ Sodium (Chloride) 100 mls @ 100 mls/hr IVPB [facility] [place] Last Admin: 02/03/17 11:37 Dose: 100 mls/hr Gentamicin Sulfate 40 mg/ (Sodium Chloride) 50 mls @ 50 mls/hr IVPB [facility] Last Admin: 02/03/17 11:38 Dose: 50 mls/hr Insulin Detemir (Levemir) 24 units SC [facility] Last Admin: 02/03/17 21:57 Dose: 24 u Insulin Human Lispro (Humalog) 6 units SC ACTID [facility] Last Admin: 02/04/17 08:50 Dose: 6 units Lamotrigine (Lamictal) 25 mg PO BID [facility] Last Admin: 02/04/17 08:52 Dose: 25 mg Levalbuterol HCl (Xopenex) 0.63 mg INH RQ8 PRN PRN Reason: Shortness of Breath Lorazepam (Ativan) 2 mg IVP Q6 PRN PRN Reason: SEIZURES Stop: 02/09/17 04:00 Metoprolol Tartrate (Lopressor) 25 mg PO Q12 [facility] Last Admin: 02/04/17 08:52 Dose: Not Given Nystatin (Nystop Topical Powder) 1 applic TOP BID [facility] Last Admin: 02/04/17 08:53 Dose: 1 applic Ondansetron HCl (Zofran Inj) 4 mg IVP Q6 PRN PRN Reason: Nausea/Vomiting Last Admin: 09/19/16 10:26 Dose: 4 mg Pantoprazole Sodium (Protonix Ec Tab) 40 mg PO DAILY [facility] Last Admin: 02/04/17 08:55 Dose: 40 mg Repaglinide (Prandin) 2 mg PO TIDAC [facility] Last Admin: 02/04/17 08:54 Dose: 2 mg Sennosides (Senokot Tab) 25.8 mg PO [facility] Last Admin: 02/03/17 21:23 Dose: 25.8 mg Sevelamer HCl (Renagel) 1,600 mg PO TIDWM [facility] Last Admin: 02/04/17 08:55 Dose: 1,600 mg Simethicone (Mylicon Chew Tab) 80 mg PO Q4H PRN PRN Reason: flatulence or "gassy feeling:" Last Admin: 02/03/17 08:44 Dose: 80 mg Vitamin B Complex/Vit C/Folic Acid (Nephro-Ajay) 1 tab PO DAILY [facility] Last Admin: 02/04/17 08:53 Dose: 1 tab - Labs Labs: 01/31/17 09:15 01/31/17 09:15 PT 15.3 Seconds (9.8-13.1) H 12/02/16 13:05 INR 1.4 (0.9-1.2) H 12/02/16 13:05 APTT 37.0 Seconds (25.6-37.1) 12/02/16 13:05 Alkaline phosphatase = 200 ALT & AST < 2xnormal. - Constitutional Appears: No Acute Distress - Head Exam Head Exam: NORMAL INSPECTION - Eye Exam Eye Exam: Normal appearance - ENT Exam ENT Exam: Mucous Membranes Moist - Respiratory Exam Respiratory Exam: Clear to Ausculation Bilateral, NORMAL BREATHING PATTERN - Cardiovascular Exam Cardiovascular Exam: REGULAR RHYTHM, +S1, +S2 - GI/Abdominal Exam GI & Abdominal Exam: Soft - Extremities Exam Additional comments: Dressings and wound vac in place RLE. L femoral vein PICC line intact. Hands and left residual limb thomas - Back Exam Back Exam: NORMAL INSPECTION - Neurological Exam Neurological Exam: Alert, CN II-XII Intact, Oriented x3 - Psychiatric Exam Psychiatric exam: Normal Affect, Normal Mood - Skin Skin Exam: Dry, Normal Color, Warm Assessment and Plan (1) Status post below knee amputation of right lower extremity Assessment & Plan: Making nice progress - almost ready for acute rehab. Await wound assessment today. Status: Acute (2) ESRD (end stage renal disease) on dialysis Status: Chronic (3) DM type 2 (diabetes mellitus, type 2) Status: Chronic (4) Peripheral arterial occlusive disease Status: Chronic (5) Coagulopathy Status: Chronic (6) Seizure disorder Assessment & Plan: See Subjective for medication changes. Status: Acute (7) Elevated liver enzymes Status: Acute
--- NOTE | 2017-02-04 12:53 | CP.PCM.PN ---
Subjective - Date & Time of Evaluation Date of Evaluation: 02/04/17 Time of Evaluation: 12:51 - Subjective Subjective: Patient conscious alert not in acute distress feeling good No new changes reported Objective - Vital Signs/Intake and Output Vital Signs (last 24 hours): Temp Pulse Resp BP Pulse Ox 97.7 F 90 18 100/47 L 97 02/04/17 07:38 02/04/17 08:52 02/04/17 07:38 02/04/17 08:52 02/04/17 07:38 - Medications Medications: Current Medications Acetaminophen (Tylenol 325mg Tab) 650 mg PO Q4 PRN PRN Reason: Fever >100.4 F Last Admin: 12/26/16 19:40 Dose: 650 mg Acetaminophen (Tylenol 325mg Tab) 650 mg PO Q4 PRN PRN Reason: Pain, moderate (4-7) Last Admin: 01/20/17 11:28 Dose: 650 mg Apixaban (Eliquis) 5 mg PO BID [facility] PRN Reason: Protocol Last Admin: 02/04/17 08:50 Dose: 5 mg Aspirin (Ecotrin) 81 mg PO DAILY [facility] Last Admin: 02/04/17 08:49 Dose: 81 mg Atorvastatin Calcium (Lipitor) 40 mg PO DAILY [facility] Last Admin: 02/04/17 08:52 Dose: 40 mg Calcitriol (Rocaltrol) 0.25 mcg PO DAILY [facility] Last Admin: 02/04/17 08:55 Dose: 0.25 mcg Calcium Carbonate (Oscal) 500 mg PO BIDWM [facility] Last Admin: 02/04/17 08:54 Dose: 500 mg Collagenase (Santyl) 1 applic TOP DAILY [facility] Last Admin: 02/03/17 16:20 Dose: 1 applic Diphenhydramine HCl (Benadryl) 25 mg PO Q6 PRN PRN Reason: Itching / Pruritus Last Admin: 12/17/16 09:53 Dose: 25 mg Docusate Sodium (Colace) 100 mg PO BID [facility] Last Admin: 02/04/17 08:48 Dose: 100 mg Ergocalciferol (Drisdol 50,000 Intl Units Cap) 1 cap PO WED [facility] Last Admin: 01/29/17 08:19 Dose: 1 cap Fluconazole (Diflucan) 100 mg PO DAILY [facility] Last Admin: 02/04/17 08:49 Dose: 100 mg Gabapentin (Neurontin) 300 mg PO TID [facility] Last Admin: 02/04/17 08:53 Dose: 300 mg Guaifenesin/Dextromethorphan (Robitussin Dm) 10 ml PO Q4 PRN PRN Reason: Cough Last Admin: 01/13/17 10:51 Dose: 10 ml Hydrocortisone (Anusol-Hc) 1 applic [place] BID PRN PRN Reason: Inflammation Hydromorphone HCl (Dilaudid) 1 mg IVP Q4H PRN PRN Reason: Pain, severe (8-10) Last Admin: 02/04/17 11:07 Dose: 1 mg Hydromorphone HCl (Dilaudid) 2 mg PO Q4 PRN PRN Reason: Pain, moderate (4-7) Last Admin: 02/03/17 18:11 Dose: 2 mg Sodium Chloride (Sodium Chloride 0.45%) 500 mls @ 10 mls/hr IV .Q24H [facility] Last Admin: 02/03/17 16:19 Dose: Not Given Ceftazidime/Avibactam 0.94 gm/ (Sodium Chloride) 100 mls @ 50 mls/hr IV QOTHERDAY@2200 [facility] Last Admin: 02/03/17 21:24 Dose: 50 mls/hr Vancomycin HCl 500 mg/ Sodium (Chloride) 100 mls @ 100 mls/hr [place]PB [facility] [place] Last Admin: 02/03/17 11:37 Dose: 100 mls/hr Gentamicin Sulfate 40 mg/ (Sodium Chloride) 50 mls @ 50 mls/hr IVPB [facility] [place] Last Admin: 02/03/17 11:38 Dose: 50 mls/hr Insulin Detemir (Levemir) 24 units SC HS [facility] Last Admin: 02/03/17 21:57 Dose: 24 u Insulin Human Lispro (Humalog) 6 units SC ACTID [facility] Last Admin: 02/04/17 08:50 Dose: 6 units Lamotrigine (Lamictal) 25 mg PO BID [facility] Last Admin: 02/04/17 08:52 Dose: 25 mg Levalbuterol HCl (Xopenex) 0.63 mg INH RQ8 PRN PRN Reason: Shortness of Breath Lorazepam (Ativan) 2 mg IVP Q6 PRN PRN Reason: SEIZURES Stop: 02/09/17 04:00 Metoprolol Tartrate (Lopressor) 25 mg PO Q12 [facility] Last Admin: 02/04/17 08:52 Dose: Not Given Nystatin (Nystop Topical Powder) 1 applic TOP BID [facility] Last Admin: 02/04/17 08:53 Dose: 1 applic Ondansetron HCl (Zofran Inj) 4 mg IVP Q6 PRN PRN Reason: Nausea/Vomiting Last Admin: 09/19/16 10:26 Dose: 4 mg Pantoprazole Sodium (Protonix Ec Tab) 40 mg PO DAILY [facility] Last Admin: 02/04/17 08:55 Dose: 40 mg Repaglinide (Prandin) 2 mg PO TIDAC [facility] Last Admin: 02/04/17 08:54 Dose: 2 mg Sennosides (Senokot Tab) 25.8 mg PO HS [facility] Last Admin: 02/03/17 21:23 Dose: 25.8 mg Sevelamer HCl (Renagel) 1,600 mg PO TIDWM [facility] Last Admin: 02/04/17 08:55 Dose: 1,600 mg Simethicone (Mylicon Chew Tab) 80 mg PO Q4H PRN PRN Reason: flatulence or "gassy feeling:" Last Admin: 02/03/17 08:44 Dose: 80 mg Vitamin B Complex/Vit C/Folic Acid (Nephro-Ajay) 1 tab PO DAILY [facility] Last Admin: 02/04/17 08:53 Dose: 1 tab - Labs Labs: 01/31/17 09:15 01/31/17 09:15 PT 15.3 Seconds (9.8-13.1) H 12/02/16 13:05 INR 1.4 (0.9-1.2) H 12/02/16 13:05 APTT 37.0 Seconds (25.6-37.1) 12/02/16 13:05 - Constitutional Appears: No Acute Distress - ENT Exam ENT Exam: Mucous Membranes Moist - Respiratory Exam Respiratory Exam: NORMAL BREATHING PATTERN. absent: Chest Wall Tenderness - Cardiovascular Exam Cardiovascular Exam: absent: JVD, Rubs - GI/Abdominal Exam GI & Abdominal Exam: Normal Bowel Sounds. absent: Guarding - Extremities Exam Extremities Exam: absent: Calf Tenderness - Back Exam Back Exam: absent: CVA tenderness (L), CVA tenderness (R) - Neurological Exam Neurological Exam: Alert Assessment and Plan (1) ESRD (end stage renal disease) Assessment & Plan: End stage renal disease continue hemodialysis Friday Hemoglobin noted to be 12.2 keep improving EPO put on hold by slip cover seamstress Repeat CBC in about couple days I believe she will need EPO in few days depends on the CBC. Status: Chronic (2) Cellulitis of leg Status: Chronic
[2017-02-04] MEDS: Santyl Collagenase OINTMENT TOP SCH (13:46)
[2017-02-04] MEDS: Insulin Detemir 100 Units/ml Inj SC SCH (21:56)
--- NOTE | 2017-02-04 22:35 | CP.PCM.PN ---
Subjective - Date & Time of Evaluation Date of Evaluation: 02/04/17 Time of Evaluation: 20:05 - Subjective Subjective: She is off Topamax. No allergic reactions to Lamotrigen, no Seizures. She is on IV Ativan 2mg Q 6hrs PRN Seizures. She needs to be assessed by Surgery for her Gall Bladder Stones. They might be contributing to her High LFT. Her Glucose level in Blood is accepted. She is receiving Hemodialysis Routine M,W,F. VS are accepted. Objective - Vital Signs/Intake and Output Vital Signs (last 24 hours): Temp Pulse Resp BP Pulse Ox 97.6 F 93 H 18 100/55 L 95 02/04/17 16:29 02/04/17 21:54 02/04/17 16:29 02/04/17 21:54 02/04/17 16:29 - Medications Medications: Current Medications Acetaminophen (Tylenol 325mg Tab) 650 mg PO Q4 PRN PRN Reason: Fever >100.4 F Last Admin: 12/26/16 19:40 Dose: 650 mg Acetaminophen (Tylenol 325mg Tab) 650 mg PO Q4 PRN PRN Reason: Pain, moderate (4-7) Last Admin: 01/20/17 11:28 Dose: 650 mg Apixaban (Eliquis) 5 mg PO BID [facility] PRN Reason: Protocol Last Admin: 02/04/17 17:47 Dose: 5 mg Aspirin (Ecotrin) 81 mg PO DAILY [facility] Last Admin: 02/04/17 08:49 Dose: 81 mg Atorvastatin Calcium (Lipitor) 40 mg PO DAILY [facility] Last Admin: 02/04/17 08:52 Dose: 40 mg Calcitriol (Rocaltrol) 0.25 mcg PO DAILY [facility] Last Admin: 02/04/17 08:55 Dose: 0.25 mcg Calcium Carbonate (Oscal) 500 mg PO BIDWM [facility] Last Admin: 02/04/17 17:50 Dose: 500 mg Collagenase (Santyl) 1 applic TOP DAILY [facility] Last Admin: 02/04/17 13:46 Dose: 1 applic Diphenhydramine HCl (Benadryl) 25 mg PO Q6 PRN PRN Reason: Itching / Pruritus Last Admin: 12/17/16 09:53 Dose: 25 mg Docusate Sodium (Colace) 100 mg PO BID [facility] Last Admin: 02/04/17 17:47 Dose: 100 mg Ergocalciferol (Drisdol 50,000 Intl Units Cap) 1 cap PO WED [facility] Last Admin: 01/29/17 08:19 Dose: 1 cap Fluconazole (Diflucan) 100 mg PO DAILY [facility] Last Admin: 02/04/17 08:49 Dose: 100 mg Gabapentin (Neurontin) 300 mg PO TID [facility] Last Admin: 02/04/17 17:49 Dose: 300 mg Guaifenesin/Dextromethorphan (Robitussin Dm) 10 ml PO Q4 PRN PRN Reason: Cough Last Admin: 01/13/17 10:51 Dose: 10 ml Hydrocortisone (Anusol-Hc) 1 applic [place] BID PRN PRN Reason: Inflammation Hydromorphone HCl (Dilaudid) 1 mg IVP Q4H PRN PRN Reason: Pain, severe (8-10) Last Admin: 02/04/17 20:12 Dose: 1 mg Hydromorphone HCl (Dilaudid) 2 mg PO Q4 PRN PRN Reason: Pain, moderate (4-7) Last Admin: 02/03/17 18:11 Dose: 2 mg Sodium Chloride (Sodium Chloride 0.45%) 500 mls @ 10 mls/hr IV .Q24H [facility] Last Admin: 02/03/17 16:19 Dose: Not Given Ceftazidime/Avibactam 0.94 gm/ (Sodium Chloride) 100 mls @ 50 mls/hr IV QOTHERDAY@2200 [facility] Last Admin: 02/03/17 21:24 Dose: 50 mls/hr Vancomycin HCl 500 mg/ Sodium (Chloride) 100 mls @ 100 mls/hr IVPB [facility] Last Admin: 02/03/17 11:37 Dose: 100 mls/hr Gentamicin Sulfate 40 mg/ (Sodium Chloride) 50 mls @ 50 mls/hr IVPB [facility] Last Admin: 02/03/17 11:38 Dose: 50 mls/hr Insulin Detemir (Levemir) 24 units SC HS [facility] Last Admin: 02/04/17 21:56 Dose: 24 u Insulin Human Lispro (Humalog) 6 units SC ACTID [facility] Last Admin: 02/04/17 17:48 Dose: 6 units Lamotrigine (Lamictal) 25 mg PO BID [facility] Last Admin: 02/04/17 17:49 Dose: 25 mg Levalbuterol HCl (Xopenex) 0.63 mg INH RQ8 PRN PRN Reason: Shortness of Breath Lorazepam (Ativan) 2 mg IVP Q6 PRN PRN Reason: SEIZURES Stop: 02/09/17 04:00 Metoprolol Tartrate (Lopressor) 25 mg PO Q12 [facility] Last Admin: 02/04/17 21:54 Dose: Not Given Nystatin (Nystop Topical Powder) 1 applic TOP BID [facility] Last Admin: 02/04/17 17:49 Dose: 1 applic Ondansetron HCl (Zofran Inj) 4 mg IVP Q6 PRN PRN Reason: Nausea/Vomiting Last Admin: 09/19/16 10:26 Dose: 4 mg Pantoprazole Sodium (Protonix Ec Tab) 40 mg PO DAILY [facility] Last Admin: 02/04/17 08:55 Dose: 40 mg Repaglinide (Prandin) 2 mg PO TIDAC [facility] Last Admin: 02/04/17 17:50 Dose: 2 mg Sennosides (Senokot Tab) 25.8 mg PO HS [facility] Last Admin: 02/04/17 21:54 Dose: 25.8 mg Sevelamer HCl (Renagel) 1,600 mg PO TIDWM [facility] Last Admin: 02/04/17 17:50 Dose: 1,600 mg Simethicone (Mylicon Chew Tab) 80 mg PO Q4H PRN PRN Reason: flatulence or "gassy feeling:" Last Admin: 02/03/17 08:44 Dose: 80 mg Vitamin B Complex/Vit C/Folic Acid (Nephro-Ajay) 1 tab PO DAILY [facility] Last Admin: 02/04/17 08:53 Dose: 1 tab - Labs Labs: 01/31/17 09:15 01/31/17 09:15 PT 15.3 Seconds (9.8-13.1) H 12/02/16 13:05 INR 1.4 (0.9-1.2) H 12/02/16 13:05 APTT 37.0 Seconds (25.6-37.1) 12/02/16 13:05 Assessment and Plan (1) Diabetes Status: Chronic (2) ESRD (end stage renal disease) Status: Chronic (3) Cellulitis of leg Status: Chronic (4) Hyperlipidemia Status: Chronic (5) Back pain Status: Acute (6) Bacteremia due to Gram-negative bacteria Status: Acute (7) PVD (peripheral vascular disease) Status: Chronic (8) Osteomyelitis of right leg Status: Acute (9) Seizures Assessment & Plan: On Lamotrigen 25 mg BID Status: Acute
--- NOTE | 2017-02-05 00:02 | PN ---
DATE: ROOM: 661 SUBJECTIVE: This is a 46-year-old female with recent uncontrolled type 2 insulin-requiring diabetes, now being followed closely for metabolic management. Her oral intake remains variable, but improved at this time and the latest glucose levels have ranged from 175 to 189 mg/dL. She has ongoing IV antibiotics for management of right below-knee amputation stump for severe underlying osteomyelitis. So at this time, we will continue the same modified basal and bolus insulin regimen as given with Humalog given at 6 units subcu t.i.d. before meals as ordered. We will continue the Levemir given as 24 units subcu at bedtime daily as ordered. We will titrate incremental as indicated to optimize metabolic control. We will follow and advise accordingly. Irene Ambrose MD
[2017-02-05] MEDS: Ergocalciferol 50,000 Intl Units Cap PO SCH (09:06)
[2017-02-05] MEDS: Insulin Lispro (humaLOG) 100 Units/ml Inj SC SCH ×3 (09:07→17:44)
[2017-02-05] MEDS: Multivitamin Vitamin B Complex (Nephro-Vite) Tab PO SCH (09:09)
[2017-02-05] MEDS: Pantoprazole 40 mg EC Tab PO SCH (09:10)
--- NOTE | 2017-02-05 10:07 | CP.PCM.PN ---
Subjective - Date & Time of Evaluation Date of Evaluation: 02/05/17 Time of Evaluation: 08:00 - Subjective Subjective: Patient had a good day with physical therapy yesterday and stood up on left prosthesis (with assistance of therapists). However, nurse noted she is using a lot of Dilaudid for pain. I advised nurse to use oral instead of iv Dilaudid when pain is not severe and to discourage use when pain is only mild to moderate === especially since we are working toward a goal of acute rehab starting middle of next week. Gallstone surgery may not be advisable at this time when we are still dealing with a resistant infection in the leg. Past experience has taught us that the bacteria linger in the bone and re-emerge if antibiotic therapy is not prolonged. I will discuss this with Drs. Lemon and Andreea. There are many reasons for the elevated liver enzymes, and the gallstones may not be the real issue. Glucoses are running 175-199 since the insulin dosing was lowered. I will leave adjustments to Dr. Ambrose. Otherwise, no pain, fever, cough, or dyspnea. Objective - Vital Signs/Intake and Output Vital Signs (last 24 hours): Temp Pulse Resp BP Pulse Ox 97.6 F 101 H 18 127/85 96 02/05/17 08:07 02/05/17 08:07 02/05/17 08:07 02/05/17 08:07 02/05/17 08:07 - Medications Medications: Current Medications Acetaminophen (Tylenol 325mg Tab) 650 mg PO Q4 PRN PRN Reason: Fever >100.4 F Last Admin: 12/26/16 19:40 Dose: 650 mg Acetaminophen (Tylenol 325mg Tab) 650 mg PO Q4 PRN PRN Reason: Pain, moderate (4-7) Last Admin: 01/20/17 11:28 Dose: 650 mg Apixaban (Eliquis) 5 mg PO BID [facility] PRN Reason: Protocol Last Admin: 02/05/17 09:06 Dose: 5 mg Aspirin (Ecotrin) 81 mg PO DAILY [facility] Last Admin: 02/05/17 09:06 Dose: 81 mg Atorvastatin Calcium (Lipitor) 40 mg PO DAILY [facility] Last Admin: 02/05/17 09:08 Dose: 40 mg Calcitriol (Rocaltrol) 0.25 mcg PO DAILY [facility] Last Admin: 02/05/17 09:10 Dose: 0.25 mcg Calcium Carbonate (Oscal) 500 mg PO BIDWM [facility] Last Admin: 02/05/17 09:10 Dose: 500 mg Collagenase (Santyl) 1 applic TOP DAILY [facility] Last Admin: 02/04/17 13:46 Dose: 1 applic Diphenhydramine HCl (Benadryl) 25 mg PO Q6 PRN PRN Reason: Itching / Pruritus Last Admin: 12/17/16 09:53 Dose: 25 mg Docusate Sodium (Colace) 100 mg PO BID [facility] Last Admin: 02/05/17 09:05 Dose: 100 mg Ergocalciferol (Drisdol 50,000 Intl Units Cap) 1 cap PO WED [facility] Last Admin: 02/05/17 09:06 Dose: 1 cap Fluconazole (Diflucan) 100 mg PO DAILY [facility] Last Admin: 02/05/17 09:05 Dose: 100 mg Gabapentin (Neurontin) 300 mg PO TID [facility] Last Admin: 02/05/17 09:09 Dose: 300 mg Guaifenesin/Dextromethorphan (Robitussin Dm) 10 ml PO Q4 PRN PRN Reason: Cough Last Admin: 01/13/17 10:51 Dose: 10 ml Hydrocortisone (Anusol-Hc) 1 applic [place] BID PRN PRN Reason: Inflammation Hydromorphone HCl (Dilaudid) 1 mg IVP Q4H PRN PRN Reason: Pain, severe (8-10) Last Admin: 02/05/17 06:59 Dose: 1 mg Hydromorphone HCl (Dilaudid) 2 mg PO Q4 PRN PRN Reason: Pain, moderate (4-7) Last Admin: 02/03/17 18:11 Dose: 2 mg Sodium Chloride (Sodium Chloride 0.45%) 500 mls @ 10 mls/hr IV .Q24H [facility] Last Admin: 02/03/17 16:19 Dose: Not Given Ceftazidime/Avibactam 0.94 gm/ (Sodium Chloride) 100 mls @ 50 mls/hr IV QOTHERDAY@2200 [facility] Last Admin: 02/03/17 21:24 Dose: 50 mls/hr Vancomycin HCl 500 mg/ Sodium (Chloride) 100 mls @ 100 mls/hr IVPB MWF [facility] Last Admin: 02/03/17 11:37 Dose: 100 mls/hr Gentamicin Sulfate 40 mg/ (Sodium Chloride) 50 mls @ 50 mls/hr IVPB MWF [facility] Last Admin: 02/03/17 11:38 Dose: 50 mls/hr Insulin Detemir (Levemir) 24 units SC HS [facility] Last Admin: 02/04/17 21:56 Dose: 24 u Insulin Human Lispro (Humalog) 6 units SC ACTID [facility] Last Admin: 02/05/17 09:07 Dose: 6 units Lamotrigine (Lamictal) 25 mg PO BID [facility] Last Admin: 02/05/17 09:08 Dose: 25 mg Levalbuterol HCl (Xopenex) 0.63 mg INH RQ8 PRN PRN Reason: Shortness of Breath Lorazepam (Ativan) 2 mg IVP Q6 PRN PRN Reason: SEIZURES Stop: 02/09/17 04:00 Metoprolol Tartrate (Lopressor) 25 mg PO Q12 [facility] Last Admin: 02/05/17 09:08 Dose: Not Given Nystatin (Nystop Topical Powder) 1 applic TOP BID [facility] Last Admin: 02/04/17 17:49 Dose: 1 applic Ondansetron HCl (Zofran Inj) 4 mg IVP Q6 PRN PRN Reason: Nausea/Vomiting Last Admin: 09/19/16 10:26 Dose: 4 mg Pantoprazole Sodium (Protonix Ec Tab) 40 mg PO DAILY [facility] Last Admin: 02/05/17 09:10 Dose: 40 mg Repaglinide (Prandin) 2 mg PO TIDAC [facility] Last Admin: 02/05/17 09:10 Dose: 2 mg Sennosides (Senokot Tab) 25.8 mg PO [facility] Last Admin: 02/04/17 21:54 Dose: 25.8 mg Sevelamer HCl (Renagel) 1,600 mg PO TIDWM [facility] Last Admin: 02/05/17 09:10 Dose: 1,600 mg Simethicone (Mylicon Chew Tab) 80 mg PO Q4H PRN PRN Reason: flatulence or "gassy feeling:" Last Admin: 02/03/17 08:44 Dose: 80 mg Vitamin B Complex/Vit C/Folic Acid (Nephro-Ajay) 1 tab PO DAILY [facility] Last Admin: 02/05/17 09:09 Dose: 1 tab - Labs Labs: 01/31/17 09:15 01/31/17 09:15 PT 15.3 Seconds (9.8-13.1) H 12/02/16 13:05 INR 1.4 (0.9-1.2) H 12/02/16 13:05 APTT 37.0 Seconds (25.6-37.1) 12/02/16 13:05 - Constitutional Appears: No Acute Distress - Head Exam Head Exam: NORMOCEPHALIC - Eye Exam Eye Exam: Normal appearance - ENT Exam ENT Exam: Mucous Membranes Moist - Neck Exam Neck Exam: Normal Inspection - Respiratory Exam Respiratory Exam: Clear to Ausculation Bilateral, NORMAL BREATHING PATTERN - Cardiovascular Exam Cardiovascular Exam: REGULAR RHYTHM, +S1, +S2 - GI/Abdominal Exam GI & Abdominal Exam: Soft, Normal Bowel Sounds - Extremities Exam Additional comments: Hands and LLE warm. RLE wound vac and dressings intact, L femoral vein PICC line intact. - Back Exam Back Exam: NORMAL INSPECTION - Neurological Exam Neurological Exam: Alert, CN II-XII Intact, Oriented x3 - Psychiatric Exam Psychiatric exam: Normal Affect, Normal Mood - Skin Skin Exam: Dry, Intact, Normal Color, Warm Assessment and Plan (1) Status post below knee amputation of right lower extremity Status: Acute (2) ESRD (end stage renal disease) on dialysis Status: Chronic (3) DM type 2 (diabetes mellitus, type 2) Status: Chronic (4) Peripheral arterial occlusive disease Status: Chronic (5) Coagulopathy Status: Chronic (6) Seizure disorder Status: Acute (7) Elevated liver enzymes Status: Acute
--- NOTE | 2017-02-05 11:59 | CP.PCM.PN ---
Subjective - Date & Time of Evaluation Date of Evaluation: 02/05/17 Time of Evaluation: 11:57 - Subjective Subjective: Patient was seen during hemodialysis Order discussed with the dialysis nurse and the patient. Patient tolerating well vital sign noted No chest pain no shortness of breath Chest no rales Heart no rubs Abdomen soft Impression and plan End stage renal disease on maintenance hemodialysis MWF tolerating very well Anemia to repeat CBC and follow-up because EPO put on hold Secondary hyperparathyroidism appeared to be stable on calcitriol Hyperphosphatemia appeared to be stable patient on phosphorus binder Status post amputation with wound infection and antibiotics as per primary team. Objective - Vital Signs/Intake and Output Vital Signs (last 24 hours): Temp Pulse Resp BP Pulse Ox 97.6 F 101 H 18 127/85 96 02/05/17 08:07 02/05/17 08:07 02/05/17 08:07 02/05/17 08:07 02/05/17 08:07 - Medications Medications: Current Medications Acetaminophen (Tylenol 325mg Tab) 650 mg PO Q4 PRN PRN Reason: Fever >100.4 F Last Admin: 12/26/16 19:40 Dose: 650 mg Acetaminophen (Tylenol 325mg Tab) 650 mg PO Q4 PRN PRN Reason: Pain, moderate (4-7) Last Admin: 01/20/17 11:28 Dose: 650 mg Apixaban (Eliquis) 5 mg PO BID [facility] PRN Reason: Protocol Last Admin: 02/05/17 09:06 Dose: 5 mg Aspirin (Ecotrin) 81 mg PO DAILY [facility] Last Admin: 02/05/17 09:06 Dose: 81 mg Atorvastatin Calcium (Lipitor) 40 mg PO DAILY [facility] Last Admin: 02/05/17 09:08 Dose: 40 mg Calcitriol (Rocaltrol) 0.25 mcg PO DAILY [facility] Last Admin: 02/05/17 09:10 Dose: 0.25 mcg Calcium Carbonate (Oscal) 500 mg PO BIDWM [facility] Last Admin: 02/05/17 09:10 Dose: 500 mg Collagenase (Santyl) 1 applic TOP DAILY [facility] Last Admin: 02/04/17 13:46 Dose: 1 applic Diphenhydramine HCl (Benadryl) 25 mg PO Q6 PRN PRN Reason: Itching / Pruritus Last Admin: 12/17/16 09:53 Dose: 25 mg Docusate Sodium (Colace) 100 mg PO BID [facility] Last Admin: 02/05/17 09:05 Dose: 100 mg Ergocalciferol (Drisdol 50,000 Intl Units Cap) 1 cap PO WED [facility] Last Admin: 02/05/17 09:06 Dose: 1 cap Fluconazole (Diflucan) 100 mg PO DAILY [facility] Last Admin: 02/05/17 09:05 Dose: 100 mg Gabapentin (Neurontin) 300 mg PO TID [facility] Last Admin: 02/05/17 09:09 Dose: 300 mg Guaifenesin/Dextromethorphan (Robitussin Dm) 10 ml PO Q4 PRN PRN Reason: Cough Last Admin: 01/13/17 10:51 Dose: 10 ml Hydrocortisone (Anusol-Hc) 1 applic [place] BID PRN PRN Reason: Inflammation Hydromorphone HCl (Dilaudid) 1 mg IVP Q4H PRN PRN Reason: Pain, severe (8-10) Last Admin: 02/05/17 11:27 Dose: 1 mg Hydromorphone HCl (Dilaudid) 2 mg PO Q4 PRN PRN Reason: Pain, moderate (4-7) Last Admin: 02/03/17 18:11 Dose: 2 mg Sodium Chloride (Sodium Chloride 0.45%) 500 mls @ 10 mls/hr IV .Q24H [facility] Last Admin: 02/03/17 16:19 Dose: Not Given Ceftazidime/Avibactam 0.94 gm/ (Sodium Chloride) 100 mls @ 50 mls/hr IV QOTHERDAY@2200 [facility] Last Admin: 02/03/17 21:24 Dose: 50 mls/hr Vancomycin HCl 500 mg/ Sodium (Chloride) 100 mls @ 100 mls/hr [place] [facility] [place] Last Admin: 02/03/17 11:37 Dose: 100 mls/hr Gentamicin Sulfate 40 mg/ (Sodium Chloride) 50 mls @ 50 mls/hr [place]PB [facility] [place] Last Admin: 02/03/17 11:38 Dose: 50 mls/hr Insulin Detemir (Levemir) 24 units SC HS [facility] Last Admin: 02/04/17 21:56 Dose: 24 u Insulin Human Lispro (Humalog) 6 units SC ACTID [facility] Last Admin: 02/05/17 09:07 Dose: 6 units Lamotrigine (Lamictal) 25 mg PO BID [facility] Last Admin: 02/05/17 09:08 Dose: 25 mg Levalbuterol HCl (Xopenex) 0.63 mg INH RQ8 PRN PRN Reason: Shortness of Breath Lorazepam (Ativan) 2 mg IVP Q6 PRN PRN Reason: SEIZURES Stop: 02/09/17 04:00 Metoprolol Tartrate (Lopressor) 25 mg PO Q12 [facility] Last Admin: 02/05/17 09:08 Dose: Not Given Nystatin (Nystop Topical Powder) 1 applic TOP BID [facility] Last Admin: 02/04/17 17:49 Dose: 1 applic Ondansetron HCl (Zofran Inj) 4 mg IVP Q6 PRN PRN Reason: Nausea/Vomiting Last Admin: 09/19/16 10:26 Dose: 4 mg Pantoprazole Sodium (Protonix Ec Tab) 40 mg PO DAILY [facility] Last Admin: 02/05/17 09:10 Dose: 40 mg Repaglinide (Prandin) 2 mg PO TIDAC [facility] Last Admin: 02/05/17 09:10 Dose: 2 mg Sennosides (Senokot Tab) 25.8 mg PO HS [facility] Last Admin: 02/04/17 21:54 Dose: 25.8 mg Sevelamer HCl (Renagel) 1,600 mg PO TIDWM [facility] Last Admin: 02/05/17 09:10 Dose: 1,600 mg Simethicone (Mylicon Chew Tab) 80 mg PO Q4H PRN PRN Reason: flatulence or "gassy feeling:" Last Admin: 02/03/17 08:44 Dose: 80 mg Vitamin B Complex/Vit C/Folic Acid (Nephro-Ajay) 1 tab PO DAILY [facility] Last Admin: 02/05/17 09:09 Dose: 1 tab - Labs Labs: 01/31/17 09:15 01/31/17 09:15 PT 15.3 Seconds (9.8-13.1) H 12/02/16 13:05 INR 1.4 (0.9-1.2) H 12/02/16 13:05 APTT 37.0 Seconds (25.6-37.1) 12/02/16 13:05 Assessment and Plan (1) ESRD (end stage renal disease) Status: Chronic (2) Cellulitis of leg Status: Chronic
[2017-02-05] MEDS: Gentamicin 40 MG in Sodium Chloride 0.9% 50 ML IVPB SCH (13:14)
[2017-02-05 14:14] LABS: HEMATOCRIT 39.2 % (34.0-47.0); MEAN CELL VOLUME 94.6 fl (81.0-99.0); MEAN CORPUSCULAR HEMOGLOBIN 28.8 pg (27.0-31.0); MEAN CORPUSCULAR HGB CONC 30.5 g/dL (33.0-37.0); RED CELL DISTRIBUTION WIDTH 18.9 % (11.5-14.5); WHITE BLOOD COUNT 5.2 K/uL (4.8-10.8)
--- NOTE | 2017-02-05 17:02 | PN ---
Room #661 This is a 46-year-old female with recent uncontrolled type 2 insulin-requiring diabetes, now being followed closely for metabolic management. Her glycemic levels are fluctuating, but improved and the latest glucose levels have ranged from 178 to 199 and 214 mg/dL. So, at this time, we will continue the same basal and bolus insulin regimen to allow for dose equilibration and keep her on the Humalog given as 6 units subcu t.i.d. before meals as ordered. We will continue the Levemir given as 24 units subcu at bedtime daily as given. We will titrate incremental as indicated to optimize metabolic control. We will follow. Irene Ambrose MD
[2017-02-05] MEDS: Santyl Collagenase OINTMENT TOP SCH (17:48)
[2017-02-05] MEDS: Insulin Detemir 100 Units/ml Inj SC SCH (21:14)
[2017-02-05] MEDS: HYDROmorphone 0.5 mg/0.5 ml ISec IVP PRN (21:16)
--- NOTE | 2017-02-05 21:56 | CP.PCM.PN ---
Subjective - Date & Time of Evaluation Date of Evaluation: 02/05/17 Time of Evaluation: 21:00 - Subjective Subjective: She is doing better, receiving active PT and able to stand on her prosthesis. She is stable, no Seizures and is doing well on Lamotrigen. She is awake alert oriented with fluent coherent speech. She is doing well on Hemodialysis. She is still receiving Dilaudid PRN pain. Patient VS are normal except for mild Tachycardia in some readings. Blood Glucose is controlled between 174 and 215 and she is eating well. Gall Bladder stones are to be evaluated by Dr Jagdish Cook of Vascular Surgery and Dr Prado of ID and to check their relationship with mildly High LFT. Objective - Vital Signs/Intake and Output Vital Signs (last 24 hours): Temp Pulse Resp BP Pulse Ox 98.7 F 104 H 18 101/57 L 96 02/05/17 16:37 02/05/17 21:22 02/05/17 16:37 02/05/17 21:22 02/05/17 16:37 - Medications Medications: Current Medications Acetaminophen (Tylenol 325mg Tab) 650 mg PO Q4 PRN PRN Reason: Fever >100.4 F Last Admin: 12/26/16 19:40 Dose: 650 mg Acetaminophen (Tylenol 325mg Tab) 650 mg PO Q4 PRN PRN Reason: Pain, moderate (4-7) Last Admin: 01/20/17 11:28 Dose: 650 mg Apixaban (Eliquis) 5 mg PO BID [facility] PRN Reason: Protocol Last Admin: 02/05/17 17:40 Dose: 5 mg Aspirin (Ecotrin) 81 mg PO DAILY [facility] Last Admin: 02/05/17 09:06 Dose: 81 mg Atorvastatin Calcium (Lipitor) 40 mg PO DAILY [facility] Last Admin: 02/05/17 09:08 Dose: 40 mg Calcitriol (Rocaltrol) 0.25 mcg PO DAILY [facility] Last Admin: 02/05/17 09:10 Dose: 0.25 mcg Calcium Carbonate (Oscal) 500 mg PO BIDWM [facility] Last Admin: 02/05/17 17:45 Dose: 500 mg Collagenase (Santyl) 1 applic TOP DAILY [facility] Last Admin: 02/05/17 17:48 Dose: 1 applic Diphenhydramine HCl (Benadryl) 25 mg PO Q6 PRN PRN Reason: Itching / Pruritus Last Admin: 12/17/16 09:53 Dose: 25 mg Docusate Sodium (Colace) 100 mg PO BID [facility] Last Admin: 02/05/17 17:39 Dose: 100 mg Ergocalciferol (Drisdol 50,000 Intl Units Cap) 1 cap PO WED [facility] Last Admin: 02/05/17 09:06 Dose: 1 cap Fluconazole (Diflucan) 100 mg PO DAILY [facility] Last Admin: 02/05/17 09:05 Dose: 100 mg Gabapentin (Neurontin) 300 mg PO TID [facility] Last Admin: 02/05/17 17:44 Dose: 300 mg Guaifenesin/Dextromethorphan (Robitussin Dm) 10 ml PO Q4 PRN PRN Reason: Cough Last Admin: 01/13/17 10:51 Dose: 10 ml Hydrocortisone (Anusol-Hc) 1 applic [place] BID PRN PRN Reason: Inflammation Hydromorphone HCl (Dilaudid) 2 mg PO Q4 PRN PRN Reason: Pain, moderate (4-7) Last Admin: 02/05/17 16:07 Dose: 2 mg Hydromorphone HCl (Dilaudid) 1 mg IVP Q4H PRN PRN Reason: Pain, severe (8-10) Last Admin: 02/05/17 21:16 Dose: 1 mg Sodium Chloride (Sodium Chloride 0.45%) 500 mls @ 10 mls/hr IV .Q24H [facility] Last Admin: 02/03/17 16:19 Dose: Not Given Ceftazidime/Avibactam 0.94 gm/ (Sodium Chloride) 100 mls @ 50 mls/hr IV QOTHERDAY@2200 [facility] Last Admin: 02/05/17 21:23 Dose: 50 mls/hr Vancomycin HCl 500 mg/ Sodium (Chloride) 100 mls @ 100 mls/hr IVPB [facility] Last Admin: 02/05/17 13:14 Dose: 100 mls/hr Gentamicin Sulfate 40 mg/ (Sodium Chloride) 50 mls @ 50 mls/hr IVPB [facility] Last Admin: 02/05/17 13:14 Dose: 50 mls/hr Insulin Detemir (Levemir) 24 units SC HS [facility] Last Admin: 02/05/17 21:14 Dose: 24 u Insulin Human Lispro (Humalog) 6 units SC ACTID [facility] Last Admin: 02/05/17 17:44 Dose: 6 units Lamotrigine (Lamictal) 25 mg PO BID [facility] Last Admin: 02/05/17 17:44 Dose: 25 mg Levalbuterol HCl (Xopenex) 0.63 mg INH RQ8 PRN PRN Reason: Shortness of Breath Lorazepam (Ativan) 2 mg IVP Q6 PRN PRN Reason: SEIZURES Stop: 02/09/17 04:00 Metoprolol Tartrate (Lopressor) 25 mg PO Q12 [facility] Last Admin: 02/05/17 21:22 Dose: Not Given Nystatin (Nystop Topical Powder) 1 applic TOP BID [facility] Last Admin: 02/05/17 17:44 Dose: 1 applic Ondansetron HCl (Zofran Inj) 4 mg IVP Q6 PRN PRN Reason: Nausea/Vomiting Last Admin: 09/19/16 10:26 Dose: 4 mg Pantoprazole Sodium (Protonix Ec Tab) 40 mg PO DAILY [facility] Last Admin: 02/05/17 09:10 Dose: 40 mg Repaglinide (Prandin) 2 mg PO TIDAC [facility] Last Admin: 02/05/17 17:45 Dose: 2 mg Sennosides (Senokot Tab) 25.8 mg PO HS [facility] Last Admin: 02/05/17 21:14 Dose: 25.8 mg Sevelamer HCl (Renagel) 1,600 mg PO TIDWM [facility] Last Admin: 02/05/17 17:45 Dose: 1,600 mg Simethicone (Mylicon Chew Tab) 80 mg PO Q4H PRN PRN Reason: flatulence or "gassy feeling:" Last Admin: 02/03/17 08:44 Dose: 80 mg Vitamin B Complex/Vit C/Folic Acid (Nephro-Ajay) 1 tab PO DAILY [facility] Last Admin: 02/05/17 09:09 Dose: 1 tab - Labs Labs: 02/05/17 13:45 01/31/17 09:15 PT 15.3 Seconds (9.8-13.1) H 12/02/16 13:05 INR 1.4 (0.9-1.2) H 12/02/16 13:05 APTT 37.0 Seconds (25.6-37.1) 12/02/16 13:05 Assessment and Plan (1) Diabetes Status: Chronic (2) ESRD (end stage renal disease) Status: Chronic (3) Cellulitis of leg Status: Chronic (4) Hyperlipidemia Status: Chronic (5) Back pain Status: Acute (6) Bacteremia due to Gram-negative bacteria Status: Acute (7) PVD (peripheral vascular disease) Status: Chronic (8) Osteomyelitis of right leg Status: Acute (9) Seizures Status: Acute
[2017-02-06] MEDS: Insulin Lispro (humaLOG) 100 Units/ml Inj SC SCH ×4 (08:42→16:59)
--- NOTE | 2017-02-06 09:15 | CP.PCM.PN ---
Subjective - Date & Time of Evaluation Date of Evaluation: 02/06/17 Time of Evaluation: 09:13 - Subjective Subjective: No new events reported Patient appears to be stable Hemoglobin started to come down to 11.9 Therefore we will restart EPO with much lower dose as a maintenance 2000 unit Impression and plan End stage renal disease on maintenance hemodialysis MWF tolerating very well Anemia to repeat CBC and follow-up Secondary hyperparathyroidism appeared to be stable on calcitriol Hyperphosphatemia appeared to be stable patient on phosphorus binder Status post amputation with wound infection and antibiotics as per primary team. Objective - Vital Signs/Intake and Output Vital Signs (last 24 hours): Temp Pulse Resp BP Pulse Ox 97.8 F 109 H 18 150/61 96 02/06/17 07:31 02/06/17 07:31 02/06/17 07:31 02/06/17 07:31 02/06/17 07:31 - Medications Medications: Current Medications Acetaminophen (Tylenol 325mg Tab) 650 mg PO Q4 PRN PRN Reason: Fever >100.4 F Last Admin: 12/26/16 19:40 Dose: 650 mg Acetaminophen (Tylenol 325mg Tab) 650 mg PO Q4 PRN PRN Reason: Pain, moderate (4-7) Last Admin: 01/20/17 11:28 Dose: 650 mg Apixaban (Eliquis) 5 mg PO BID [facility] PRN Reason: Protocol Last Admin: 02/05/17 17:40 Dose: 5 mg Aspirin (Ecotrin) 81 mg PO DAILY [facility] Last Admin: 02/05/17 09:06 Dose: 81 mg Atorvastatin Calcium (Lipitor) 40 mg PO DAILY [facility] Last Admin: 02/05/17 09:08 Dose: 40 mg Calcitriol (Rocaltrol) 0.25 mcg PO DAILY [facility] Last Admin: 02/05/17 09:10 Dose: 0.25 mcg Calcium Carbonate (Oscal) 500 mg PO BIDWM [facility] Last Admin: 02/05/17 17:45 Dose: 500 mg Collagenase (Santyl) 1 applic TOP DAILY [facility] Last Admin: 02/05/17 17:48 Dose: 1 applic Diphenhydramine HCl (Benadryl) 25 mg PO Q6 PRN PRN Reason: Itching / Pruritus Last Admin: 12/17/16 09:53 Dose: 25 mg Docusate Sodium (Colace) 100 mg PO BID [facility] Last Admin: 02/05/17 17:39 Dose: 100 mg Ergocalciferol (Drisdol 50,000 Intl Units Cap) 1 cap PO WED [facility] Last Admin: 02/05/17 09:06 Dose: 1 cap Fluconazole (Diflucan) 100 mg PO DAILY [facility] Last Admin: 02/05/17 09:05 Dose: 100 mg Gabapentin (Neurontin) 300 mg PO TID [facility] Last Admin: 02/05/17 17:44 Dose: 300 mg Guaifenesin/Dextromethorphan (Robitussin Dm) 10 ml PO Q4 PRN PRN Reason: Cough Last Admin: 01/13/17 10:51 Dose: 10 ml Hydrocortisone (Anusol-Hc) 1 applic [place] BID PRN PRN Reason: Inflammation Hydromorphone HCl (Dilaudid) 2 mg PO Q4 PRN PRN Reason: Pain, moderate (4-7) Last Admin: 02/06/17 04:24 Dose: 2 mg Hydromorphone HCl (Dilaudid) 1 mg IVP Q4H PRN PRN Reason: Pain, severe (8-10) Last Admin: 02/05/17 21:16 Dose: 1 mg Sodium Chloride (Sodium Chloride 0.45%) 500 mls @ 10 mls/hr IV .Q24H [facility] Last Admin: 02/03/17 16:19 Dose: Not Given Ceftazidime/Avibactam 0.94 gm/ (Sodium Chloride) 100 mls @ 50 mls/hr IV QOTHERDAY@2200 [facility] Last Admin: 02/05/17 21:23 Dose: 50 mls/hr Vancomycin HCl 500 mg/ Sodium (Chloride) 100 mls @ 100 mls/hr IVPB [facility] Last Admin: 02/05/17 13:14 Dose: 100 mls/hr Gentamicin Sulfate 40 mg/ (Sodium Chloride) 50 mls @ 50 mls/hr IVPB [facility] Last Admin: 02/05/17 13:14 Dose: 50 mls/hr Insulin Detemir (Levemir) 24 units SC HS [facility] Last Admin: 02/05/17 21:14 Dose: 24 u Insulin Human Lispro (Humalog) 6 units SC ACTID [facility] Last Admin: 02/05/17 17:44 Dose: 6 units Lamotrigine (Lamictal) 25 mg PO BID [facility] Last Admin: 02/05/17 17:44 Dose: 25 mg Levalbuterol HCl (Xopenex) 0.63 mg INH RQ8 PRN PRN Reason: Shortness of Breath Lorazepam (Ativan) 2 mg IVP Q6 PRN PRN Reason: SEIZURES Stop: 02/09/17 04:00 Metoprolol Tartrate (Lopressor) 25 mg PO Q12 [facility] Last Admin: 02/05/17 21:22 Dose: Not Given Nystatin (Nystop Topical Powder) 1 applic TOP BID [facility] Last Admin: 02/05/17 17:44 Dose: 1 applic Ondansetron HCl (Zofran Inj) 4 mg IVP Q6 PRN PRN Reason: Nausea/Vomiting Last Admin: 09/19/16 10:26 Dose: 4 mg Pantoprazole Sodium (Protonix Ec Tab) 40 mg PO DAILY [facility] Last Admin: 02/05/17 09:10 Dose: 40 mg Repaglinide (Prandin) 2 mg PO TIDAC [facility] Last Admin: 02/05/17 17:45 Dose: 2 mg Sennosides (Senokot Tab) 25.8 mg PO HS [facility] Last Admin: 02/05/17 21:14 Dose: 25.8 mg Sevelamer HCl (Renagel) 1,600 mg PO TIDWM [facility] Last Admin: 02/05/17 17:45 Dose: 1,600 mg Simethicone (Mylicon Chew Tab) 80 mg PO Q4H PRN PRN Reason: flatulence or "gassy feeling:" Last Admin: 02/03/17 08:44 Dose: 80 mg Vitamin B Complex/Vit C/Folic Acid (Nephro-Ajay) 1 tab PO DAILY [facility] Last Admin: 02/05/17 09:09 Dose: 1 tab - Labs Labs: 02/05/17 13:45 01/31/17 09:15 PT 15.3 Seconds (9.8-13.1) H 12/02/16 13:05 INR 1.4 (0.9-1.2) H 12/02/16 13:05 APTT 37.0 Seconds (25.6-37.1) 12/02/16 13:05 Assessment and Plan (1) ESRD (end stage renal disease) Status: Chronic (2) Cellulitis of leg Status: Chronic
[2017-02-06] MEDS: HYDROmorphone 0.5 mg/0.5 ml ISec IVP PRN ×2 (09:28→19:22)
[2017-02-06] MEDS: Simethicone 80 mg Chewtab PO PRN (09:33)
[2017-02-06] MEDS: Pantoprazole 40 mg EC Tab PO SCH (09:34)
[2017-02-06] MEDS: Santyl Collagenase OINTMENT TOP SCH (09:48)
[2017-02-06] MEDS: Multivitamin Vitamin B Complex (Nephro-Vite) Tab PO SCH (09:49)
--- NOTE | 2017-02-06 12:14 | CP.PCM.PN ---
Subjective - Date & Time of Evaluation Date of Evaluation: 02/06/17 Time of Evaluation: 12:12 - Subjective Subjective: Elevated liver enzymes in the face of gallstones discussed with Dr. Lemon, who will be evaluating this. I also spoke with Dr. Blum in radiology. She recommended an MRCP (no contrast) - needed in order to see if there could be tiny stones blocking the small ducts. This is better than HIDA scan since the patient does not have acute cholecystitis. However, patient did not fit in the mri machine, even sideways. So, we may just have to watch to LFT's for now. She has an area of swelling and ecchymosis L flank, about 4 x 2 cm - possibly related to Maurice lift use. Will observe. Glucoses as high as 180. Otherwise no new problems and no changes in physical exam. Objective - Vital Signs/Intake and Output Vital Signs (last 24 hours): Temp Pulse Resp BP Pulse Ox 97.8 F 109 H 18 150/61 96 02/06/17 07:31 02/06/17 09:39 02/06/17 07:31 02/06/17 09:39 02/06/17 07:31 - Medications Medications: Current Medications Acetaminophen (Tylenol 325mg Tab) 650 mg PO Q4 PRN PRN Reason: Fever >100.4 F Last Admin: 12/26/16 19:40 Dose: 650 mg Acetaminophen (Tylenol 325mg Tab) 650 mg PO Q4 PRN PRN Reason: Pain, moderate (4-7) Last Admin: 01/20/17 11:28 Dose: 650 mg Apixaban (Eliquis) 5 mg PO BID [facility] PRN Reason: Protocol Last Admin: 02/06/17 09:33 Dose: 5 mg Aspirin (Ecotrin) 81 mg PO DAILY [facility] Last Admin: 02/06/17 09:39 Dose: 81 mg Atorvastatin Calcium (Lipitor) 40 mg PO DAILY [facility] Last Admin: 02/06/17 09:38 Dose: 40 mg Calcitriol (Rocaltrol) 0.25 mcg PO DAILY [facility] Last Admin: 02/06/17 09:38 Dose: 0.25 mcg Calcium Carbonate (Oscal) 500 mg PO BIDWM [facility] Last Admin: 02/06/17 09:38 Dose: 500 mg Collagenase (Santyl) 1 applic TOP DAILY [facility] Last Admin: 02/06/17 09:48 Dose: 1 applic Diphenhydramine HCl (Benadryl) 25 mg PO Q6 PRN PRN Reason: Itching / Pruritus Last Admin: 12/17/16 09:53 Dose: 25 mg Docusate Sodium (Colace) 100 mg PO BID [facility] Last Admin: 02/06/17 09:33 Dose: 100 mg Epoetin Tha (Procrit) 1,[address] [facility] Ergocalciferol (Drisdol 50,000 Intl Units Cap) 1 cap PO WED [facility] Last Admin: 02/05/17 09:06 Dose: 1 cap Fluconazole (Diflucan) 100 mg PO DAILY [facility] Last Admin: 02/06/17 09:39 Dose: 100 mg Gabapentin (Neurontin) 300 mg PO TID [facility] Last Admin: 02/06/17 09:31 Dose: 300 mg Guaifenesin/Dextromethorphan (Robitussin Dm) 10 ml PO Q4 PRN PRN Reason: Cough Last Admin: 01/13/17 10:51 Dose: 10 ml Hydrocortisone (Anusol-Hc) 1 applic [place] BID PRN PRN Reason: Inflammation Hydromorphone HCl (Dilaudid) 2 mg PO Q4 PRN PRN Reason: Pain, moderate (4-7) Last Admin: 02/06/17 04:24 Dose: 2 mg Hydromorphone HCl (Dilaudid) 1 mg IVP Q4H PRN PRN Reason: Pain, severe (8-10) Last Admin: 02/06/17 09:28 Dose: 1 mg Sodium Chloride (Sodium Chloride 0.45%) 500 mls @ 10 mls/hr IV .Q24H [facility] Last Admin: 02/03/17 16:19 Dose: Not Given Ceftazidime/Avibactam 0.94 gm/ (Sodium Chloride) 100 mls @ 50 mls/hr IV QOTHERDAY@2200 [facility] Last Admin: 02/05/17 21:23 Dose: 50 mls/hr Vancomycin HCl 500 mg/ Sodium (Chloride) 100 mls @ 100 mls/hr IVPB [facility] Last Admin: 02/05/17 13:14 Dose: 100 mls/hr Gentamicin Sulfate 40 mg/ (Sodium Chloride) 50 mls @ 50 mls/hr IVPB [facility] Last Admin: 02/05/17 13:14 Dose: 50 mls/hr Insulin Detemir (Levemir) 24 units SC HS [facility] Last Admin: 02/05/17 21:14 Dose: 24 u Insulin Human Lispro (Humalog) 6 units SC ACTID [facility] Last Admin: 02/06/17 09:00 Dose: 6 units Lamotrigine (Lamictal) 25 mg PO BID [facility] Last Admin: 02/06/17 09:32 Dose: 25 mg Levalbuterol HCl (Xopenex) 0.63 mg INH RQ8 PRN PRN Reason: Shortness of Breath Lorazepam (Ativan) 2 mg IVP Q6 PRN PRN Reason: SEIZURES Stop: 02/09/17 04:00 Metoprolol Tartrate (Lopressor) 25 mg PO Q12 [facility] Last Admin: 02/06/17 09:39 Dose: 25 mg Nystatin (Nystop Topical Powder) 1 applic TOP BID [facility] Last Admin: 02/05/17 17:44 Dose: 1 applic Ondansetron HCl (Zofran Inj) 4 mg IVP Q6 PRN PRN Reason: Nausea/Vomiting Last Admin: 09/19/16 10:26 Dose: 4 mg Pantoprazole Sodium (Protonix Ec Tab) 40 mg PO DAILY [facility] Last Admin: 02/06/17 09:34 Dose: 40 mg Repaglinide (Prandin) 2 mg PO TIDAC [facility] Last Admin: 02/06/17 09:31 Dose: 2 mg Sennosides (Senokot Tab) 25.8 mg PO HS [facility] Last Admin: 02/05/17 21:14 Dose: 25.8 mg Sevelamer HCl (Renagel) 1,600 mg PO TIDWM [facility] Last Admin: 02/06/17 09:31 Dose: 1,600 mg Simethicone (Mylicon Chew Tab) 80 mg PO Q4H PRN PRN Reason: flatulence or "gassy feeling:" Last Admin: 02/06/17 09:33 Dose: 80 mg Vitamin B Complex/Vit C/Folic Acid (Nephro-Ajay) 1 tab PO DAILY [facility] Last Admin: 02/06/17 09:49 Dose: 1 tab - Labs Labs: 02/05/17 13:45 01/31/17 09:15 PT 15.3 Seconds (9.8-13.1) H 12/02/16 13:05 INR 1.4 (0.9-1.2) H 12/02/16 13:05 APTT 37.0 Seconds (25.6-37.1) 12/02/16 13:05 Assessment and Plan (1) Status post below knee amputation of right lower extremity Status: Acute (2) ESRD (end stage renal disease) on dialysis Status: Chronic (3) DM type 2 (diabetes mellitus, type 2) Status: Chronic (4) Peripheral arterial occlusive disease Status: Chronic (5) Coagulopathy Status: Chronic (6) Seizure disorder Status: Acute (7) Elevated liver enzymes Status: Acute
--- NOTE | 2017-02-06 15:29 | PN ---
LOCATION: Room 661 This is a 46-year-old female with recent uncontrolled type 2 insulin-requiring diabetes, now being followed closely for metabolic management. Her glycemic levels are fluctuating, but improved and the latest glucose have ranged from 106 to 214 mg/dL. It was 178-199 at bedtime last night. Her latest chemistries showed a BUN of 59, sodium 140, potassium 4.7, chloride of 100, CO2 is 21, glucose is 110 and creatinine is 7.3. So, at this time we will continue the same basal and bolus insulin regimen to allow for dose equilibration and keep her on the Levemir given as 24 units subcu at bedtime daily and Humalog given as 6 units subcu t.i.d. before meals as ordered. We will titrate incremental as indicated to optimize metabolic control. We will follow. Irene Ambrose MD
[2017-02-06] MEDS: Insulin Detemir 100 Units/ml Inj SC SCH (21:57)
--- NOTE | 2017-02-06 22:38 | CP.PCM.PN ---
Subjective - Date & Time of Evaluation Date of Evaluation: 02/06/17 Time of Evaluation: 21:00 - Subjective Subjective: Patient is doing Ok. There is no Seizures on Lamictal 25 mg BID. She is evaluated for the Gall Bladder Stones that might be associated with the high LFT. She has lower hemoglobin. Epoetin (Procrit) is restarted on M,W,F 1000 Units IV. She is receiving Hemodialysis. V.S are showing mild Tachycardia. Objective - Vital Signs/Intake and Output Vital Signs (last 24 hours): Temp Pulse Resp BP Pulse Ox 97.6 F 95 H 95 H 129/84 20 L 02/06/17 16:02 02/06/17 21:55 02/06/17 16:02 02/06/17 21:55 02/06/17 16:02 - Medications Medications: Current Medications Acetaminophen (Tylenol 325mg Tab) 650 mg PO Q4 PRN PRN Reason: Fever >100.4 F Last Admin: 12/26/16 19:40 Dose: 650 mg Acetaminophen (Tylenol 325mg Tab) 650 mg PO Q4 PRN PRN Reason: Pain, moderate (4-7) Last Admin: 01/20/17 11:28 Dose: 650 mg Apixaban (Eliquis) 5 mg PO BID [facility] PRN Reason: Protocol Last Admin: 02/06/17 19:17 Dose: 5 mg Aspirin (Ecotrin) 81 mg PO DAILY [facility] Last Admin: 02/06/17 09:39 Dose: 81 mg Atorvastatin Calcium (Lipitor) 40 mg PO DAILY [facility] Last Admin: 02/06/17 09:38 Dose: 40 mg Calcitriol (Rocaltrol) 0.25 mcg PO DAILY [facility] Last Admin: 02/06/17 09:38 Dose: 0.25 mcg Calcium Carbonate (Oscal) 500 mg PO BIDWM [facility] Last Admin: 02/06/17 16:56 Dose: 500 mg Collagenase (Santyl) 1 applic TOP DAILY [facility] Last Admin: 02/06/17 09:48 Dose: 1 applic Diphenhydramine HCl (Benadryl) 25 mg PO Q6 PRN PRN Reason: Itching / Pruritus Last Admin: 12/17/16 09:53 Dose: 25 mg Docusate Sodium (Colace) 100 mg PO BID [facility] Last Admin: 02/06/17 16:54 Dose: 100 mg Epoetin Tha (Procrit) 1,000 unit IV [facility] Ergocalciferol (Drisdol 50,000 Intl Units Cap) 1 cap PO WED [facility] Last Admin: 02/05/17 09:06 Dose: 1 cap Fluconazole (Diflucan) 100 mg PO DAILY [facility] Last Admin: 02/06/17 09:39 Dose: 100 mg Gabapentin (Neurontin) 300 mg PO TID [facility] Last Admin: 02/06/17 16:54 Dose: 300 mg Guaifenesin/Dextromethorphan (Robitussin Dm) 10 ml PO Q4 PRN PRN Reason: Cough Last Admin: 01/13/17 10:51 Dose: 10 ml Hydrocortisone (Anusol-Hc) 1 applic [place] BID PRN PRN Reason: Inflammation Hydromorphone HCl (Dilaudid) 2 mg PO Q4 PRN PRN Reason: Pain, moderate (4-7) Last Admin: 02/06/17 15:01 Dose: 2 mg Hydromorphone HCl (Dilaudid) 1 mg IVP Q4H PRN PRN Reason: Pain, severe (8-10) Last Admin: 02/06/17 19:22 Dose: 1 mg Sodium Chloride (Sodium Chloride 0.45%) 500 mls @ 10 mls/hr IV .Q24H [facility] Last Admin: 02/06/17 16:58 Dose: Not Given Ceftazidime/Avibactam 0.94 gm/ (Sodium Chloride) 100 mls @ 50 mls/hr IV QOTHERDAY@2200 [facility] Last Admin: 02/05/17 21:23 Dose: 50 mls/hr Vancomycin HCl 500 mg/ Sodium (Chloride) 100 mls @ 100 mls/hr IVPB [facility] Last Admin: 02/05/17 13:14 Dose: 100 mls/hr Gentamicin Sulfate 40 mg/ (Sodium Chloride) 50 mls @ 50 mls/hr IVPB [facility] Last Admin: 02/05/17 13:14 Dose: 50 mls/hr Insulin Detemir (Levemir) 24 units SC HS [facility] Last Admin: 02/06/17 21:57 Dose: 24 u Insulin Human Lispro (Humalog) 6 units SC ACTID [facility] Last Admin: 02/06/17 16:59 Dose: 6 units Lamotrigine (Lamictal) 25 mg PO BID [facility] Last Admin: 02/06/17 19:18 Dose: 25 mg Levalbuterol HCl (Xopenex) 0.63 mg INH RQ8 PRN PRN Reason: Shortness of Breath Lorazepam (Ativan) 2 mg IVP Q6 PRN PRN Reason: SEIZURES Stop: 02/09/17 04:00 Metoprolol Tartrate (Lopressor) 25 mg PO Q12 [facility] Last Admin: 02/06/17 21:55 Dose: 25 mg Nystatin (Nystop Topical Powder) 1 applic TOP BID [facility] Last Admin: 02/06/17 16:57 Dose: Not Given Ondansetron HCl (Zofran Inj) 4 mg IVP Q6 PRN PRN Reason: Nausea/Vomiting Last Admin: 09/19/16 10:26 Dose: 4 mg Pantoprazole Sodium (Protonix Ec Tab) 40 mg PO DAILY [facility] Last Admin: 02/06/17 09:34 Dose: 40 mg Repaglinide (Prandin) 2 mg PO TIDAC [facility] Last Admin: 02/06/17 16:53 Dose: 2 mg Sennosides (Senokot Tab) 25.8 mg PO HS [facility] Last Admin: 02/06/17 21:56 Dose: 25.8 mg Sevelamer HCl (Renagel) 1,600 mg PO TIDWM [facility] Last Admin: 02/06/17 16:55 Dose: 1,600 mg Simethicone (Mylicon Chew Tab) 80 mg PO Q4H PRN PRN Reason: flatulence or "gassy feeling:" Last Admin: 02/06/17 09:33 Dose: 80 mg Vitamin B Complex/Vit C/Folic Acid (Nephro-Ajay) 1 tab PO DAILY [facility] Last Admin: 02/06/17 09:49 Dose: 1 tab - Labs Labs: 02/05/17 13:45 01/31/17 09:15 PT 15.3 Seconds (9.8-13.1) H 12/02/16 13:05 INR 1.4 (0.9-1.2) H 12/02/16 13:05 APTT 37.0 Seconds (25.6-37.1) 12/02/16 13:05 Assessment and Plan (1) Diabetes Status: Chronic (2) ESRD (end stage renal disease) Status: Chronic (3) Cellulitis of leg Status: Chronic (4) Hyperlipidemia Status: Chronic (5) Back pain Status: Acute (6) Bacteremia due to Gram-negative bacteria Status: Acute (7) PVD (peripheral vascular disease) Status: Chronic (8) Osteomyelitis of right leg Status: Acute (9) Seizures Status: Acute
[2017-02-07] MEDS: HYDROmorphone 0.5 mg/0.5 ml ISec IVP PRN ×2 (04:47→14:07)
[2017-02-07] MEDS: Multivitamin Vitamin B Complex (Nephro-Vite) Tab PO SCH (08:15)
[2017-02-07] MEDS: Pantoprazole 40 mg EC Tab PO SCH (08:15)
[2017-02-07] MEDS: Simethicone 80 mg Chewtab PO PRN ×2 (08:19→16:40)
[2017-02-07] MEDS: Insulin Lispro (humaLOG) 100 Units/ml Inj SC SCH ×3 (08:20→17:36)
[2017-02-07] MEDS: Gentamicin 40 MG in Sodium Chloride 0.9% 50 ML IVPB SCH ×2 (08:21→21:55)
[2017-02-07] MEDS: Santyl Collagenase OINTMENT TOP SCH (08:35)
--- NOTE | 2017-02-07 09:21 | CP.PCM.PN ---
Subjective - Date & Time of Evaluation Date of Evaluation: 02/07/17 Time of Evaluation: 09:11 - Subjective Subjective: Patient is comfortable. Today she will have hemodialysis. No new blood work is needed since it was just done on 02/05. Will do new labs on 02/09. I spoke with Dr. South Hernandez, rn occupational, who will perform LASER treatments for severe diabetic retinopathy. This will have to be done at his office in [place]. They can accommodate a wheelchair and even do the procedure in her wheelchair if necessary. For logistical reasons we are aiming for transer to TCU on 02/09 (provided the wound is continuing to heal). From there she can be transported out of hospital for necessary care. Glucoses are controlled, but still high (just under 200). For change in wound vac right BK wound and evaluation of right patellar wound today. To continue on IV antibiotics and po fluconazole. Objective - Vital Signs/Intake and Output Vital Signs (last 24 hours): Temp Pulse Resp BP Pulse Ox 97.6 F 95 H 19 156/72 H 98 02/07/17 07:59 02/07/17 07:59 02/07/17 07:59 02/07/17 08:22 02/07/17 07:59 - Medications Medications: Current Medications Acetaminophen (Tylenol 325mg Tab) 650 mg PO Q4 PRN PRN Reason: Fever >100.4 F Last Admin: 12/26/16 19:40 Dose: 650 mg Acetaminophen (Tylenol 325mg Tab) 650 mg PO Q4 PRN PRN Reason: Pain, moderate (4-7) Last Admin: 01/20/17 11:28 Dose: 650 mg Apixaban (Eliquis) 5 mg PO BID [facility] PRN Reason: Protocol Last Admin: 02/07/17 08:12 Dose: 5 mg Aspirin (Ecotrin) 81 mg PO DAILY [facility] Last Admin: 02/07/17 08:12 Dose: 81 mg Atorvastatin Calcium (Lipitor) 40 mg PO DAILY [facility] Last Admin: 02/07/17 08:13 Dose: 40 mg Calcitriol (Rocaltrol) 0.25 mcg PO DAILY [facility] Last Admin: 02/07/17 08:15 Dose: 0.25 mcg Calcium Carbonate (Oscal) 500 mg PO BIDWM [facility] Last Admin: 02/07/17 08:10 Dose: 500 mg Collagenase (Santyl) 1 applic TOP DAILY [facility] Last Admin: 02/07/17 08:35 Dose: 1 applic Diphenhydramine HCl (Benadryl) 25 mg PO Q6 PRN PRN Reason: Itching / Pruritus Last Admin: 12/17/16 09:53 Dose: 25 mg Docusate Sodium (Colace) 100 mg PO BID [facility] Last Admin: 02/07/17 08:11 Dose: 100 mg Epoetin Tha (Procrit) 1,000 unit IV [facility] Ergocalciferol (Drisdol 50,000 Intl Units Cap) 1 cap PO WED [facility] Last Admin: 02/05/17 09:06 Dose: 1 cap Fluconazole (Diflucan) 100 mg PO DAILY [facility] Last Admin: 02/07/17 08:11 Dose: 100 mg Gabapentin (Neurontin) 300 mg PO TID [facility] Last Admin: 02/07/17 08:15 Dose: 300 mg Guaifenesin/Dextromethorphan (Robitussin Dm) 10 ml PO Q4 PRN PRN Reason: Cough Last Admin: 01/13/17 10:51 Dose: 10 ml Hydrocortisone (Anusol-Hc) 1 applic [place] BID PRN PRN Reason: Inflammation Hydromorphone HCl (Dilaudid) 2 mg PO Q4 PRN PRN Reason: Pain, moderate (4-7) Last Admin: 02/06/17 15:01 Dose: 2 mg Hydromorphone HCl (Dilaudid) 1 mg IVP Q4H PRN PRN Reason: Pain, severe (8-10) Last Admin: 02/07/17 04:47 Dose: 1 mg Sodium Chloride (Sodium Chloride 0.45%) 500 mls @ 10 mls/hr IV .Q24H [facility] Last Admin: 02/06/17 16:58 Dose: Not Given Ceftazidime/Avibactam 0.94 gm/ (Sodium Chloride) 100 mls @ 50 mls/hr IV QOTHERDAY@2200 [facility] Last Admin: 02/05/17 21:23 Dose: 50 mls/hr Vancomycin HCl 500 mg/ Sodium (Chloride) 100 mls @ 100 mls/hr IVPB [facility] [place] Last Admin: 02/05/17 13:14 Dose: 100 mls/hr Gentamicin Sulfate 40 mg/ (Sodium Chloride) 50 mls @ 50 mls/hr IVPB MWF [facility] Last Admin: 02/07/17 08:21 Dose: Not Given Insulin Detemir (Levemir) 24 units SC HS [facility] Last Admin: 02/06/17 21:57 Dose: 24 u Insulin Human Lispro (Humalog) 6 units SC ACTID [facility] Last Admin: 02/07/17 08:20 Dose: 6 units Lamotrigine (Lamictal) 25 mg PO BID [facility] Last Admin: 02/07/17 08:13 Dose: 25 mg Levalbuterol HCl (Xopenex) 0.63 mg INH RQ8 PRN PRN Reason: Shortness of Breath Lorazepam (Ativan) 2 mg IVP Q6 PRN PRN Reason: SEIZURES Stop: 02/09/17 04:00 Metoprolol Tartrate (Lopressor) 25 mg PO Q12 [facility] Last Admin: 02/07/17 08:32 Dose: Not Given Nystatin (Nystop Topical Powder) 1 applic TOP BID [facility] Last Admin: 02/07/17 08:23 Dose: Not Given Ondansetron HCl (Zofran Inj) 4 mg IVP Q6 PRN PRN Reason: Nausea/Vomiting Last Admin: 09/19/16 10:26 Dose: 4 mg Pantoprazole Sodium (Protonix Ec Tab) 40 mg PO DAILY [facility] Last Admin: 02/07/17 08:15 Dose: 40 mg Repaglinide (Prandin) 2 mg PO TIDAC [facility] Last Admin: 02/07/17 08:09 Dose: 2 mg Sennosides (Senokot Tab) 25.8 mg PO [facility] Last Admin: 02/06/17 21:56 Dose: 25.8 mg Sevelamer HCl (Renagel) 1,600 mg PO TIDWM [facility] Last Admin: 02/07/17 08:11 Dose: 1,600 mg Simethicone (Mylicon Chew Tab) 80 mg PO Q4H PRN PRN Reason: flatulence or "gassy feeling:" Last Admin: 02/07/17 08:19 Dose: 80 mg Vitamin B Complex/Vit C/Folic Acid (Nephro-Ajay) 1 tab PO DAILY [facility] Last Admin: 02/07/17 08:15 Dose: 1 tab - Labs Labs: 02/05/17 13:45 01/31/17 09:15 PT 15.3 Seconds (9.8-13.1) H 12/02/16 13:05 INR 1.4 (0.9-1.2) H 12/02/16 13:05 APTT 37.0 Seconds (25.6-37.1) 12/02/16 13:05 - Constitutional Appears: No Acute Distress - Head Exam Head Exam: NORMAL INSPECTION - Eye Exam Eye Exam: Normal appearance - ENT Exam ENT Exam: Mucous Membranes Moist - Neck Exam Neck Exam: Normal Inspection - Respiratory Exam Respiratory Exam: Clear to Ausculation Bilateral, NORMAL BREATHING PATTERN - Cardiovascular Exam Cardiovascular Exam: REGULAR RHYTHM, +S1, +S2 - GI/Abdominal Exam GI & Abdominal Exam: Soft - Extremities Exam Additional comments: Dressings intact RLE L femoral vein PICC line intact. All extremities warm. - Neurological Exam Neurological Exam: Alert, Oriented x3 - Psychiatric Exam Psychiatric exam: Normal Affect, Normal Mood - Skin Skin Exam: Dry, Normal Color, Warm Additional comments: Left flank swelling/ecchymosis has not changed in size. Assessment and Plan (1) Status post below knee amputation of right lower extremity Assessment & Plan: SEE SUBJECTIVE Status: Acute (2) ESRD (end stage renal disease) on dialysis Assessment & Plan: SEE SUBJECTIVE. Status: Chronic (3) DM type 2 (diabetes mellitus, type 2) Assessment & Plan: SEE SUBJECTIVE. Status: Chronic (4) Peripheral arterial occlusive disease Status: Chronic (5) Coagulopathy Status: Chronic (6) Seizure disorder Status: Acute (7) Elevated liver enzymes Status: Acute
[2017-02-07] MEDS: Epoetin Alfa 20000 UNIT/ML (RENAL DOSE) IV SCH ×2 (09:34→22:02)
--- NOTE | 2017-02-07 12:11 | CP.PCM.PN ---
Subjective - Date & Time of Evaluation Date of Evaluation: 02/07/17 Time of Evaluation: 12:09 - Subjective Subjective: No significant changes clinically Patient continued to do better slowly Objective - Vital Signs/Intake and Output Vital Signs (last 24 hours): Temp Pulse Resp BP Pulse Ox 97.6 F 95 H 19 156/72 H 98 02/07/17 07:59 02/07/17 07:59 02/07/17 07:59 02/07/17 08:22 02/07/17 07:59 - Medications Medications: Current Medications Acetaminophen (Tylenol 325mg Tab) 650 mg PO Q4 PRN PRN Reason: Fever >100.4 F Last Admin: 12/26/16 19:40 Dose: 650 mg Acetaminophen (Tylenol 325mg Tab) 650 mg PO Q4 PRN PRN Reason: Pain, moderate (4-7) Last Admin: 01/20/17 11:28 Dose: 650 mg Apixaban (Eliquis) 5 mg PO BID [facility] PRN Reason: Protocol Last Admin: 02/07/17 08:12 Dose: 5 mg Aspirin (Ecotrin) 81 mg PO DAILY [facility] Last Admin: 02/07/17 08:12 Dose: 81 mg Atorvastatin Calcium (Lipitor) 40 mg PO DAILY [facility] Last Admin: 02/07/17 08:13 Dose: 40 mg Calcitriol (Rocaltrol) 0.25 mcg PO DAILY [facility] Last Admin: 02/07/17 08:15 Dose: 0.25 mcg Calcium Carbonate (Oscal) 500 mg PO BIDWM [facility] Last Admin: 02/07/17 08:10 Dose: 500 mg Collagenase (Santyl) 1 applic TOP DAILY [facility] Last Admin: 02/07/17 08:35 Dose: 1 applic Diphenhydramine HCl (Benadryl) 25 mg PO Q6 PRN PRN Reason: Itching / Pruritus Last Admin: 12/17/16 09:53 Dose: 25 mg Docusate Sodium (Colace) 100 mg PO BID [facility] Last Admin: 02/07/17 08:11 Dose: 100 mg Epoetin Tha (Procrit) 1,000 unit IV MWF [facility] Last Admin: 02/07/17 09:34 Dose: Not Given Ergocalciferol (Drisdol 50,000 Intl Units Cap) 1 cap PO WED [facility] Last Admin: 02/05/17 09:06 Dose: 1 cap Fluconazole (Diflucan) 100 mg PO DAILY [facility] Last Admin: 02/07/17 08:11 Dose: 100 mg Gabapentin (Neurontin) 300 mg PO TID [facility] Last Admin: 02/07/17 08:15 Dose: 300 mg Guaifenesin/Dextromethorphan (Robitussin Dm) 10 ml PO Q4 PRN PRN Reason: Cough Last Admin: 01/13/17 10:51 Dose: 10 ml Hydrocortisone (Anusol-Hc) [address] BID PRN PRN Reason: Inflammation Hydromorphone HCl (Dilaudid) 2 mg PO Q4 PRN PRN Reason: Pain, moderate (4-7) Last Admin: 02/07/17 09:27 Dose: 2 mg Hydromorphone HCl (Dilaudid) 1 mg IVP Q4H PRN PRN Reason: Pain, severe (8-10) Last Admin: 02/07/17 04:47 Dose: 1 mg Sodium Chloride (Sodium Chloride 0.45%) 500 mls @ 10 mls/hr IV .Q24H [facility] Last Admin: 02/06/17 16:58 Dose: Not Given Ceftazidime/Avibactam 0.94 gm/ (Sodium Chloride) 100 mls @ 50 mls/hr IV QOTHERDAY@2200 [facility] Last Admin: 02/05/17 21:23 Dose: 50 mls/hr Vancomycin HCl 500 mg/ Sodium (Chloride) 100 mls @ 100 mls/hr [place] [facility] Last Admin: 02/07/17 12:04 Dose: Not Given Gentamicin Sulfate 40 mg/ (Sodium Chloride) 50 mls @ 50 mls/hr [place]PB [facility] Last Admin: 02/07/17 08:21 Dose: Not Given Insulin Detemir (Levemir) 24 units SC HS [facility] Last Admin: 02/06/17 21:57 Dose: 24 u Insulin Human Lispro (Humalog) 6 units SC ACTID [facility] Last Admin: 02/07/17 08:20 Dose: 6 units Lamotrigine (Lamictal) 25 mg PO BID [facility] Last Admin: 02/07/17 08:13 Dose: 25 mg Levalbuterol HCl (Xopenex) 0.63 mg INH RQ8 PRN PRN Reason: Shortness of Breath Lorazepam (Ativan) 2 mg IVP Q6 PRN PRN Reason: SEIZURES Stop: 02/09/17 04:00 Metoprolol Tartrate (Lopressor) 25 mg PO Q12 [facility] Last Admin: 02/07/17 08:32 Dose: Not Given Nystatin (Nystop Topical Powder) 1 applic TOP BID [facility] Last Admin: 02/07/17 08:23 Dose: Not Given Ondansetron HCl (Zofran Inj) 4 mg IVP Q6 PRN PRN Reason: Nausea/Vomiting Last Admin: 09/19/16 10:26 Dose: 4 mg Pantoprazole Sodium (Protonix Ec Tab) 40 mg PO DAILY [facility] Last Admin: 02/07/17 08:15 Dose: 40 mg Repaglinide (Prandin) 2 mg PO TIDAC [facility] Last Admin: 02/07/17 08:09 Dose: 2 mg Sennosides (Senokot Tab) 25.8 mg PO HS [facility] Last Admin: 02/06/17 21:56 Dose: 25.8 mg Sevelamer HCl (Renagel) 1,600 mg PO TIDWM [facility] Last Admin: 02/07/17 08:11 Dose: 1,600 mg Simethicone (Mylicon Chew Tab) 80 mg PO Q4H PRN PRN Reason: flatulence or "gassy feeling:" Last Admin: 02/07/17 08:19 Dose: 80 mg Vitamin B Complex/Vit C/Folic Acid (Nephro-Ajay) 1 tab PO DAILY [facility] Last Admin: 02/07/17 08:15 Dose: 1 tab - Labs Labs: 02/05/17 13:45 01/31/17 09:15 PT 15.3 Seconds (9.8-13.1) H 12/02/16 13:05 INR 1.4 (0.9-1.2) H 12/02/16 13:05 APTT 37.0 Seconds (25.6-37.1) 12/02/16 13:05 - Constitutional Appears: No Acute Distress - ENT Exam ENT Exam: Mucous Membranes Moist - Respiratory Exam Respiratory Exam: absent: Chest Wall Tenderness - Cardiovascular Exam Cardiovascular Exam: absent: JVD, Rubs - GI/Abdominal Exam GI & Abdominal Exam: Normal Bowel Sounds - Extremities Exam Extremities Exam: absent: Calf Tenderness - Back Exam Back Exam: absent: CVA tenderness (L), CVA tenderness (R) - Neurological Exam Neurological Exam: Alert Assessment and Plan (1) ESRD (end stage renal disease) Assessment & Plan: End stage renal disease patient about to have dialysis as scheduled and ordered sodium and potassium on ultrafiltration has been ordered End stage renal disease on maintenance hemodialysis MWF tolerating very well Anemia to repeat CBC and follow-up Secondary hyperparathyroidism appeared to be stable on calcitriol Hyperphosphatemia appeared to be stable patient on phosphorus binder Status post amputation with wound infection and antibiotics as per primary team. Status: Chronic (2) Cellulitis of leg Status: Chronic
[2017-02-07] MEDS: Insulin Detemir 100 Units/ml Inj SC SCH (22:05)
--- NOTE | 2017-02-07 23:07 | CP.PCM.PN ---
Subjective - Date & Time of Evaluation Date of Evaluation: 02/07/17 Time of Evaluation: 20:00 - Subjective Subjective: She is doing better and is active. She has no seizures is on Lamictal 25 mg Q 12 hrs. Lamictal needs to be increase to 50 mg Q 12 hrs on 02/11/2017, then to 100 mg q 12 HRS on 02/25/2017 then to 150 mg q12 hrs on 03/04/2017 and will continue lamictal for 18 more months if no seizures are seen. Her general condition is better and she received Hemodialysis. Her VS are accepted and the Blood Glucose is controlled. She might be discharged on 02/09/2017 and will receive Laser therapy for her eye Retinopathy in [facility]. Objective - Vital Signs/Intake and Output Vital Signs (last 24 hours): Temp Pulse Resp BP Pulse Ox 97.6 F 107 H 18 113/56 L 100 02/07/17 17:00 02/07/17 22:05 02/07/17 17:00 02/07/17 22:05 02/07/17 17:00 - Medications Medications: Current Medications Acetaminophen (Tylenol 325mg Tab) 650 mg PO Q4 PRN PRN Reason: Fever >100.4 F Last Admin: 12/26/16 19:40 Dose: 650 mg Acetaminophen (Tylenol 325mg Tab) 650 mg PO Q4 PRN PRN Reason: Pain, moderate (4-7) Last Admin: 01/20/17 11:28 Dose: 650 mg Apixaban (Eliquis) 5 mg PO BID [facility] PRN Reason: Protocol Last Admin: 02/07/17 16:40 Dose: 5 mg Aspirin (Ecotrin) 81 mg PO DAILY [facility] Last Admin: 02/07/17 08:12 Dose: 81 mg Atorvastatin Calcium (Lipitor) 40 mg PO DAILY [facility] Last Admin: 02/07/17 08:13 Dose: 40 mg Calcitriol (Rocaltrol) 0.25 mcg PO DAILY [facility] Last Admin: 02/07/17 08:15 Dose: 0.25 mcg Calcium Carbonate (Oscal) 500 mg PO BIDWM [facility] Last Admin: 02/07/17 16:41 Dose: 500 mg Collagenase (Santyl) 1 applic TOP DAILY [facility] Last Admin: 02/07/17 08:35 Dose: 1 applic Diphenhydramine HCl (Benadryl) 25 mg PO Q6 PRN PRN Reason: Itching / Pruritus Last Admin: 12/17/16 09:53 Dose: 25 mg Docusate Sodium (Colace) 100 mg PO BID [facility] Last Admin: 02/07/17 16:40 Dose: 100 mg Epoetin Tha (Procrit) 1,000 unit IV [facility] Last Admin: 02/07/17 22:02 Dose: 1,000 unit Ergocalciferol (Drisdol 50,000 Intl Units Cap) 1 cap PO WED [facility] Last Admin: 02/05/17 09:06 Dose: 1 cap Fluconazole (Diflucan) 100 mg PO DAILY [facility] Last Admin: 02/07/17 08:11 Dose: 100 mg Gabapentin (Neurontin) 300 mg PO TID [facility] Last Admin: 02/07/17 16:41 Dose: 300 mg Guaifenesin/Dextromethorphan (Robitussin Dm) 10 ml PO Q4 PRN PRN Reason: Cough Last Admin: 01/13/17 10:51 Dose: 10 ml Hydrocortisone (Anusol-Hc) 1 applic [place] BID PRN PRN Reason: Inflammation Hydromorphone HCl (Dilaudid) 2 mg PO Q4 PRN PRN Reason: Pain, moderate (4-7) Last Admin: 02/07/17 20:24 Dose: 2 mg Hydromorphone HCl (Dilaudid) 1 mg IVP Q4H PRN PRN Reason: Pain, severe (8-10) Last Admin: 02/07/17 14:07 Dose: 1 mg Sodium Chloride (Sodium Chloride 0.45%) 500 mls @ 10 mls/hr IV .Q24H [facility] Last Admin: 02/07/17 16:08 Dose: Not Given Ceftazidime/Avibactam 0.94 gm/ (Sodium Chloride) 100 mls @ 50 mls/hr IV QOTHERDAY@2200 [facility] Last Admin: 02/05/17 21:23 Dose: 50 mls/hr Vancomycin HCl 500 mg/ Sodium (Chloride) 100 mls @ 100 mls/hr IVPB [facility] Last Admin: 02/07/17 21:44 Dose: 100 mls/hr Gentamicin Sulfate 40 mg/ (Sodium Chloride) 50 mls @ 50 mls/hr IVPB [facility] Last Admin: 02/07/17 21:55 Dose: 50 mls/hr Insulin Detemir (Levemir) 24 units SC HS [facility] Last Admin: 02/07/17 22:05 Dose: 24 u Insulin Human Lispro (Humalog) 6 units SC ACTID [facility] Last Admin: 02/07/17 17:36 Dose: 6 units Lamotrigine (Lamictal) 25 mg PO BID [facility] Last Admin: 02/07/17 16:40 Dose: 25 mg Levalbuterol HCl (Xopenex) 0.63 mg INH RQ8 PRN PRN Reason: Shortness of Breath Lorazepam (Ativan) 2 mg IVP Q6 PRN PRN Reason: SEIZURES Stop: 02/09/17 04:00 Metoprolol Tartrate (Lopressor) 25 mg PO Q12 [facility] Last Admin: 02/07/17 22:05 Dose: 25 mg Nystatin (Nystop Topical Powder) 1 applic TOP BID [facility] Last Admin: 02/07/17 16:41 Dose: Not Given Ondansetron HCl (Zofran Inj) 4 mg IVP Q6 PRN PRN Reason: Nausea/Vomiting Last Admin: 09/19/16 10:26 Dose: 4 mg Pantoprazole Sodium (Protonix Ec Tab) 40 mg PO DAILY [facility] Last Admin: 02/07/17 08:15 Dose: 40 mg Repaglinide (Prandin) 2 mg PO TIDAC [facility] Last Admin: 02/07/17 16:41 Dose: 2 mg Sennosides (Senokot Tab) 25.8 mg PO HS [facility] Last Admin: 02/07/17 22:04 Dose: 25.8 mg Sevelamer HCl (Renagel) 1,600 mg PO TIDWM [facility] Last Admin: 02/07/17 17:36 Dose: 1,600 mg Simethicone (Mylicon Chew Tab) 80 mg PO Q4H PRN PRN Reason: flatulence or "gassy feeling:" Last Admin: 02/07/17 16:40 Dose: 80 mg Vitamin B Complex/Vit C/Folic Acid (Nephro-Ajay) 1 tab PO DAILY [facility] Last Admin: 02/07/17 08:15 Dose: 1 tab - Labs Labs: 02/05/17 13:45 01/31/17 09:15 PT 15.3 Seconds (9.8-13.1) H 12/02/16 13:05 INR 1.4 (0.9-1.2) H 12/02/16 13:05 APTT 37.0 Seconds (25.6-37.1) 12/02/16 13:05 Assessment and Plan (1) Diabetes Status: Chronic (2) ESRD (end stage renal disease) Status: Chronic (3) Cellulitis of leg Status: Chronic (4) Hyperlipidemia Status: Chronic (5) Back pain Status: Acute (6) Bacteremia due to Gram-negative bacteria Status: Acute (7) PVD (peripheral vascular disease) Status: Chronic (8) Osteomyelitis of right leg Status: Acute (9) Seizures Status: Acute
[2017-02-08] MEDS: HYDROmorphone 0.5 mg/0.5 ml ISec IVP PRN (00:50)
--- NOTE | 2017-02-08 04:54 | PN ---
DATE: LOCATION: Room 661. SUBJECTIVE: This is a 46-year-old female with recent uncontrolled type 2 insulin-requiring diabetes, now being followed closely for metabolic management. Her glycemic levels are fluctuating, but much improved at this time and the latest glucose levels have ranged from 106 to 132 over 181 mg/dL. So, at this time, we will continue the same basal and bolus insulin regimen as ordered with Levemir given as 24 units subcu at bedtime daily to start tonight. We will continue the Humalog given as 6 units subcu t.i.d. We will follow. Irene Ambrose MD
[2017-02-08] MEDS: Simethicone 80 mg Chewtab PO PRN ×2 (09:00→16:14)
[2017-02-08] MEDS: Insulin Lispro (humaLOG) 100 Units/ml Inj SC SCH ×3 (09:01→16:18)
[2017-02-08] MEDS: Pantoprazole 40 mg EC Tab PO SCH (09:01)
[2017-02-08] MEDS: Multivitamin Vitamin B Complex (Nephro-Vite) Tab PO SCH (09:02)
[2017-02-08] MEDS: Santyl Collagenase OINTMENT TOP SCH (09:10)
--- NOTE | 2017-02-08 12:51 | CP.PCM.PN ---
Subjective - Date & Time of Evaluation Date of Evaluation: 02/08/17 Time of Evaluation: 12:45 - Subjective Subjective: Dr. Maguire's note appreciated, and his instructions for Lamictal dosing will be followed. The plan is for patient to go to TCU tomorrow, whence she will be able to be transported to Dr. Hernandez's office on 02/11 for 12 pm appointment for LASER tx of diabetic retinopathy. She will also be transported MWF to [facility] for hemodialysis. Then after about 7-10 days, patient will be able to go to acute rehab, at which time hemodialysis can be done on that unit. finally after about 2-3 weeks of acute rehab, patient will be able to go to [facility] to complete her rehabilitation and go home on two BK prostheses. All of this is predicated on continued healing of the right BK wound and patellar wound. Note that all current wound care will continue through the various changes in location and level of care. copy worker Juan Diego has made all transport arrangements. Today, all is well. Physical exam is unchanged. I will re-evaluate her tomorrow for TCU transfer arrangements. Objective - Vital Signs/Intake and Output Vital Signs (last 24 hours): Temp Pulse Resp BP Pulse Ox 97.8 F 100 H 18 137/76 96 02/08/17 07:47 02/08/17 09:02 02/08/17 07:47 02/08/17 09:02 02/08/17 07:47 - Medications Medications: Current Medications Acetaminophen (Tylenol 325mg Tab) 650 mg PO Q4 PRN PRN Reason: Fever >100.4 F Last Admin: 12/26/16 19:40 Dose: 650 mg Acetaminophen (Tylenol 325mg Tab) 650 mg PO Q4 PRN PRN Reason: Pain, moderate (4-7) Last Admin: 01/20/17 11:28 Dose: 650 mg Apixaban (Eliquis) 5 mg PO BID [facility] PRN Reason: Protocol Last Admin: 02/08/17 08:59 Dose: 5 mg Aspirin (Ecotrin) 81 mg PO DAILY [facility] Last Admin: 02/08/17 09:01 Dose: 81 mg Atorvastatin Calcium (Lipitor) 40 mg PO DAILY [facility] Last Admin: 02/08/17 09:00 Dose: 40 mg Calcitriol (Rocaltrol) 0.25 mcg PO DAILY [facility] Last Admin: 02/08/17 09:01 Dose: 0.25 mcg Calcium Carbonate (Oscal) 500 mg PO BIDWM [facility] Last Admin: 02/08/17 09:02 Dose: 500 mg Collagenase (Santyl) 1 applic TOP DAILY [facility] Last Admin: 02/08/17 09:10 Dose: 1 applic Diphenhydramine HCl (Benadryl) 25 mg PO Q6 PRN PRN Reason: Itching / Pruritus Last Admin: 12/17/16 09:53 Dose: 25 mg Docusate Sodium (Colace) 100 mg PO BID [facility] Last Admin: 02/08/17 09:00 Dose: 100 mg Epoetin Tha (Procrit) 1,000 unit IV MWF [facility] Last Admin: 02/07/17 22:02 Dose: 1,000 unit Ergocalciferol (Drisdol 50,000 Intl Units Cap) 1 cap PO WED [facility] Last Admin: 02/05/17 09:06 Dose: 1 cap Fluconazole (Diflucan) 100 mg PO DAILY [facility] Last Admin: 02/08/17 09:03 Dose: 100 mg Gabapentin (Neurontin) 300 mg PO TID [facility] Last Admin: 02/08/17 09:03 Dose: 300 mg Guaifenesin/Dextromethorphan (Robitussin Dm) 10 ml PO Q4 PRN PRN Reason: Cough Last Admin: 01/13/17 10:51 Dose: 10 ml Hydrocortisone (Anusol-Hc) 1 applic [place] BID PRN PRN Reason: Inflammation Hydromorphone HCl (Dilaudid) 2 mg PO Q4 PRN PRN Reason: Pain, moderate (4-7) Last Admin: 02/08/17 11:21 Dose: 2 mg Hydromorphone HCl (Dilaudid) 1 mg IVP Q4H PRN PRN Reason: Pain, severe (8-10) Last Admin: 02/08/17 00:50 Dose: 1 mg Sodium Chloride (Sodium Chloride 0.45%) 500 mls @ 10 mls/hr IV .Q24H [facility] Last Admin: 02/07/17 16:08 Dose: Not Given Ceftazidime/Avibactam 0.94 gm/ (Sodium Chloride) 100 mls @ 50 mls/hr IV QOTHERDAY@2200 [facility] Last Admin: 02/07/17 23:15 Dose: 50 mls/hr Vancomycin HCl 500 mg/ Sodium (Chloride) 100 mls @ 100 mls/hr IVPB F [facility] Last Admin: 02/07/17 21:44 Dose: 100 mls/hr Gentamicin Sulfate 40 mg/ (Sodium Chloride) 50 mls @ 50 mls/hr IVPB [facility] [place] Last Admin: 02/07/17 21:55 Dose: 50 mls/hr Insulin Detemir (Levemir) 24 units SC HS [facility] Last Admin: 02/07/17 22:05 Dose: 24 u Insulin Human Lispro (Humalog) 6 units SC ACTID [facility] Last Admin: 02/08/17 09:01 Dose: 6 units Lamotrigine (Lamictal) 25 mg PO BID [facility] Last Admin: 02/08/17 09:02 Dose: 25 mg Levalbuterol HCl (Xopenex) 0.63 mg INH RQ8 PRN PRN Reason: Shortness of Breath Lorazepam (Ativan) 2 mg IVP Q6 PRN PRN Reason: SEIZURES Stop: 02/09/17 04:00 Metoprolol Tartrate (Lopressor) 25 mg PO Q12 [facility] Last Admin: 02/08/17 09:02 Dose: 25 mg Nystatin (Nystop Topical Powder) 1 applic TOP BID [facility] Last Admin: 02/08/17 11:23 Dose: 1 applic Ondansetron HCl (Zofran Inj) 4 mg IVP Q6 PRN PRN Reason: Nausea/Vomiting Last Admin: 09/19/16 10:26 Dose: 4 mg Pantoprazole Sodium (Protonix Ec Tab) 40 mg PO DAILY [facility] Last Admin: 02/08/17 09:01 Dose: 40 mg Repaglinide (Prandin) 2 mg PO TIDAC [facility] Last Admin: 02/08/17 09:00 Dose: 2 mg Sennosides (Senokot Tab) 25.8 mg PO [facility] Last Admin: 02/07/17 22:04 Dose: 25.8 mg Sevelamer HCl (Renagel) 1,600 mg PO TIDWM [facility] Last Admin: 02/08/17 09:02 Dose: 1,600 mg Simethicone (Mylicon Chew Tab) 80 mg PO Q4H PRN PRN Reason: flatulence or "gassy feeling:" Last Admin: 02/08/17 09:00 Dose: 80 mg Vitamin B Complex/Vit C/Folic Acid (Nephro-Ajay) 1 tab PO DAILY [facility] Last Admin: 02/08/17 09:02 Dose: 1 tab - Labs Labs: 02/05/17 13:45 01/31/17 09:15 PT 15.3 Seconds (9.8-13.1) H 12/02/16 13:05 INR 1.4 (0.9-1.2) H 12/02/16 13:05 APTT 37.0 Seconds (25.6-37.1) 12/02/16 13:05 Assessment and Plan (1) Status post below knee amputation of right lower extremity Status: Acute (2) ESRD (end stage renal disease) on dialysis Status: Chronic (3) DM type 2 (diabetes mellitus, type 2) Status: Chronic (4) Peripheral arterial occlusive disease Status: Chronic (5) Coagulopathy Status: Chronic (6) Seizure disorder Status: Acute (7) Elevated liver enzymes Status: Acute
--- NOTE | 2017-02-08 16:57 | CP.PCM.PN ---
Subjective - Date & Time of Evaluation Date of Evaluation: 02/08/17 Time of Evaluation: 16:54 - Subjective Subjective: I D NOTE FOLLOWUP RANDOM LEVELS FOR VANCOMYCIN AND GENTAMICIN ORDERED NO CHANGE IN COVERAGE AT THIS TIME AND HAS BILIARY TRACT COVERAGE c PRESENT REGIMEN Objective - Vital Signs/Intake and Output Vital Signs (last 24 hours): Temp Pulse Resp BP Pulse Ox 98.1 F 98 H 19 135/80 97 02/08/17 15:48 02/08/17 15:48 02/08/17 15:48 02/08/17 15:48 02/08/17 15:48 - Medications Medications: Current Medications Acetaminophen (Tylenol 325mg Tab) 650 mg PO Q4 PRN PRN Reason: Fever >100.4 F Last Admin: 12/26/16 19:40 Dose: 650 mg Acetaminophen (Tylenol 325mg Tab) 650 mg PO Q4 PRN PRN Reason: Pain, moderate (4-7) Last Admin: 01/20/17 11:28 Dose: 650 mg Apixaban (Eliquis) 5 mg PO BID [facility] PRN Reason: Protocol Last Admin: 02/08/17 16:14 Dose: 5 mg Aspirin (Ecotrin) 81 mg PO DAILY [facility] Last Admin: 02/08/17 09:01 Dose: 81 mg Atorvastatin Calcium (Lipitor) 40 mg PO DAILY [facility] Last Admin: 02/08/17 09:00 Dose: 40 mg Calcitriol (Rocaltrol) 0.25 mcg PO DAILY [facility] Last Admin: 02/08/17 09:01 Dose: 0.25 mcg Calcium Carbonate (Oscal) 500 mg PO BIDWM [facility] Last Admin: 02/08/17 16:15 Dose: 500 mg Collagenase (Santyl) 1 applic TOP DAILY [facility] Last Admin: 02/08/17 09:10 Dose: 1 applic Diphenhydramine HCl (Benadryl) 25 mg PO Q6 PRN PRN Reason: Itching / Pruritus Last Admin: 12/17/16 09:53 Dose: 25 mg Docusate Sodium (Colace) 100 mg PO BID [facility] Last Admin: 02/08/17 16:14 Dose: 100 mg Epoetin Tha (Procrit) 1,000 unit IV MWF [facility] Last Admin: 02/07/17 22:02 Dose: 1,000 unit Ergocalciferol (Drisdol 50,000 Intl Units Cap) 1 cap PO WED [facility] Last Admin: 02/05/17 09:06 Dose: 1 cap Fluconazole (Diflucan) 100 mg PO DAILY [facility] Last Admin: 02/08/17 09:03 Dose: 100 mg Gabapentin (Neurontin) 300 mg PO TID [facility] Last Admin: 02/08/17 16:00 Dose: 300 mg Guaifenesin/Dextromethorphan (Robitussin Dm) 10 ml PO Q4 PRN PRN Reason: Cough Last Admin: 01/13/17 10:51 Dose: 10 ml Hydrocortisone (Anusol-Hc) 1 applic [place] BID PRN PRN Reason: Inflammation Hydromorphone HCl (Dilaudid) 2 mg PO Q4 PRN PRN Reason: Pain, moderate (4-7) Last Admin: 02/08/17 16:09 Dose: 2 mg Hydromorphone HCl (Dilaudid) 1 mg IVP Q4H PRN PRN Reason: Pain, severe (8-10) Last Admin: 02/08/17 00:50 Dose: 1 mg Sodium Chloride (Sodium Chloride 0.45%) 500 mls @ 10 mls/hr IV .Q24H [facility] Last Admin: 02/08/17 16:22 Dose: Not Given Ceftazidime/Avibactam 0.94 gm/ (Sodium Chloride) 100 mls @ 50 mls/hr IV QOTHERDAY@2200 [facility] Last Admin: 02/07/17 23:15 Dose: 50 mls/hr Vancomycin HCl 500 mg/ Sodium (Chloride) 100 mls @ 100 mls/hr IVPB [facility] [place] Last Admin: 02/07/17 21:44 Dose: 100 mls/hr Gentamicin Sulfate 40 mg/ (Sodium Chloride) 50 mls @ 50 mls/hr IVPB [facility] [place] Last Admin: 02/07/17 21:55 Dose: 50 mls/hr Insulin Detemir (Levemir) 24 units SC HS [facility] Last Admin: 02/07/17 22:05 Dose: 24 u Insulin Human Lispro (Humalog) 6 units SC ACTID [facility] Last Admin: 02/08/17 16:18 Dose: 6 units Lamotrigine (Lamictal) 25 mg PO BID [facility] Last Admin: 02/08/17 16:16 Dose: 25 mg Levalbuterol HCl (Xopenex) 0.63 mg INH RQ8 PRN PRN Reason: Shortness of Breath Lorazepam (Ativan) 2 mg IVP Q6 PRN PRN Reason: SEIZURES Stop: 02/09/17 04:00 Metoprolol Tartrate (Lopressor) 25 mg PO Q12 [facility] Last Admin: 02/08/17 09:02 Dose: 25 mg Nystatin (Nystop Topical Powder) 1 applic TOP BID [facility] Last Admin: 02/08/17 16:18 Dose: 1 applic Ondansetron HCl (Zofran Inj) 4 mg IVP Q6 PRN PRN Reason: Nausea/Vomiting Last Admin: 09/19/16 10:26 Dose: 4 mg Pantoprazole Sodium (Protonix Ec Tab) 40 mg PO DAILY [facility] Last Admin: 02/08/17 09:01 Dose: 40 mg Repaglinide (Prandin) 2 mg PO TIDAC [facility] Last Admin: 02/08/17 16:00 Dose: 2 mg Sennosides (Senokot Tab) 25.8 mg PO HS [facility] Last Admin: 02/07/17 22:04 Dose: 25.8 mg Sevelamer HCl (Renagel) 1,600 mg PO TIDWM [facility] Last Admin: 02/08/17 16:00 Dose: 1,600 mg Simethicone (Mylicon Chew Tab) 80 mg PO Q4H PRN PRN Reason: flatulence or "gassy feeling:" Last Admin: 02/08/17 16:14 Dose: 80 mg Vitamin B Complex/Vit C/Folic Acid (Nephro-Ajay) 1 tab PO DAILY [facility] Last Admin: 02/08/17 09:02 Dose: 1 tab - Labs Labs: 02/05/17 13:45 01/31/17 09:15 PT 15.3 Seconds (9.8-13.1) H 12/02/16 13:05 INR 1.4 (0.9-1.2) H 12/02/16 13:05 APTT 37.0 Seconds (25.6-37.1) 12/02/16 13:05
[2017-02-08] MEDS: Insulin Detemir 100 Units/ml Inj SC SCH (21:18)
--- NOTE | 2017-02-08 23:19 | CP.PCM.PN ---
Subjective - Date & Time of Evaluation Date of Evaluation: 02/08/17 Time of Evaluation: 20:00 - Subjective Subjective: Patient is not in distress. She will be transferred to a different facility and will have Laser therapy for her Retinopathy in [place].. She has no seizures on Lamictal 25 mg Q 12 hrs. She is active in Physical Therapy. VS are stable except for Tachycardia 100/min, Blood sugar is fluctuating between 135 and 200. She is receiving Hemodialysis regularly. Objective - Vital Signs/Intake and Output Vital Signs (last 24 hours): Temp Pulse Resp BP Pulse Ox 98.1 F 101 H 19 144/82 97 02/08/17 15:48 02/08/17 21:22 02/08/17 15:48 02/08/17 21:22 02/08/17 15:48 - Medications Medications: Current Medications Acetaminophen (Tylenol 325mg Tab) 650 mg PO Q4 PRN PRN Reason: Fever >100.4 F Last Admin: 12/26/16 19:40 Dose: 650 mg Acetaminophen (Tylenol 325mg Tab) 650 mg PO Q4 PRN PRN Reason: Pain, moderate (4-7) Last Admin: 01/20/17 11:28 Dose: 650 mg Apixaban (Eliquis) 5 mg PO BID [facility] PRN Reason: Protocol Last Admin: 02/08/17 16:14 Dose: 5 mg Aspirin (Ecotrin) 81 mg PO DAILY [facility] Last Admin: 02/08/17 09:01 Dose: 81 mg Atorvastatin Calcium (Lipitor) 40 mg PO DAILY [facility] Last Admin: 02/08/17 09:00 Dose: 40 mg Calcitriol (Rocaltrol) 0.25 mcg PO DAILY [facility] Last Admin: 02/08/17 09:01 Dose: 0.25 mcg Calcium Carbonate (Oscal) 500 mg PO BIDWM [facility] Last Admin: 02/08/17 16:15 Dose: 500 mg Collagenase (Santyl) 1 applic TOP DAILY [facility] Last Admin: 02/08/17 09:10 Dose: 1 applic Diphenhydramine HCl (Benadryl) 25 mg PO Q6 PRN PRN Reason: Itching / Pruritus Last Admin: 12/17/16 09:53 Dose: 25 mg Docusate Sodium (Colace) 100 mg PO BID [facility] Last Admin: 02/08/17 16:14 Dose: 100 mg Epoetin Tha (Procrit) 1,000 unit IV [facility] [place] Last Admin: 02/07/17 22:02 Dose: 1,000 unit Ergocalciferol (Drisdol 50,000 Intl Units Cap) 1 cap PO WED [facility] Last Admin: 02/05/17 09:06 Dose: 1 cap Fluconazole (Diflucan) 100 mg PO DAILY [facility] Last Admin: 02/08/17 09:03 Dose: 100 mg Gabapentin (Neurontin) 300 mg PO TID [facility] Last Admin: 02/08/17 18:48 Dose: 300 mg Guaifenesin/Dextromethorphan (Robitussin Dm) 10 ml PO Q4 PRN PRN Reason: Cough Last Admin: 01/13/17 10:51 Dose: 10 ml Hydrocortisone (Anusol-Hc) 1 applic [place] BID PRN PRN Reason: Inflammation Hydromorphone HCl (Dilaudid) 2 mg PO Q4 PRN PRN Reason: Pain, moderate (4-7) Last Admin: 02/08/17 21:22 Dose: 2 mg Hydromorphone HCl (Dilaudid) 1 mg IVP Q4H PRN PRN Reason: Pain, severe (8-10) Last Admin: 02/08/17 00:50 Dose: 1 mg Sodium Chloride (Sodium Chloride 0.45%) 500 mls @ 10 mls/hr IV .Q24H [facility] Last Admin: 02/08/17 16:22 Dose: Not Given Ceftazidime/Avibactam 0.94 gm/ (Sodium Chloride) 100 mls @ 50 mls/hr IV QOTHERDAY@2200 [facility] Last Admin: 02/07/17 23:15 Dose: 50 mls/hr Vancomycin HCl 500 mg/ Sodium (Chloride) 100 mls @ 100 mls/hr IVPB [facility] [place] Last Admin: 02/07/17 21:44 Dose: 100 mls/hr Gentamicin Sulfate 40 mg/ (Sodium Chloride) 50 mls @ 50 mls/hr IVPB [facility] [place] Last Admin: 02/07/17 21:55 Dose: 50 mls/hr Insulin Detemir (Levemir) 24 units SC HS [facility] Last Admin: 02/08/17 21:18 Dose: 24 u Insulin Human Lispro (Humalog) 6 units SC ACTID [facility] Last Admin: 02/08/17 16:18 Dose: 6 units Lamotrigine (Lamictal) 25 mg PO BID [facility] Last Admin: 02/08/17 16:16 Dose: 25 mg Levalbuterol HCl (Xopenex) 0.63 mg INH RQ8 PRN PRN Reason: Shortness of Breath Lorazepam (Ativan) 2 mg IVP Q6 PRN PRN Reason: SEIZURES Stop: 02/09/17 04:00 Metoprolol Tartrate (Lopressor) 25 mg PO Q12 [facility] Last Admin: 02/08/17 21:22 Dose: 25 mg Nystatin (Nystop Topical Powder) 1 applic TOP BID [facility] Last Admin: 02/08/17 16:18 Dose: 1 applic Ondansetron HCl (Zofran Inj) 4 mg IVP Q6 PRN PRN Reason: Nausea/Vomiting Last Admin: 09/19/16 10:26 Dose: 4 mg Pantoprazole Sodium (Protonix Ec Tab) 40 mg PO DAILY [facility] Last Admin: 02/08/17 09:01 Dose: 40 mg Repaglinide (Prandin) 2 mg PO TIDAC [facility] Last Admin: 02/08/17 18:49 Dose: 2 mg Sennosides (Senokot Tab) 25.8 mg PO HS [facility] Last Admin: 02/08/17 21:17 Dose: 25.8 mg Sevelamer HCl (Renagel) 1,600 mg PO TIDWM [facility] Last Admin: 02/08/17 18:48 Dose: 1,600 mg Simethicone (Mylicon Chew Tab) 80 mg PO Q4H PRN PRN Reason: flatulence or "gassy feeling:" Last Admin: 02/08/17 16:14 Dose: 80 mg Vitamin B Complex/Vit C/Folic Acid (Nephro-Ajay) 1 tab PO DAILY [facility] Last Admin: 02/08/17 09:02 Dose: 1 tab - Labs Labs: 02/05/17 13:45 01/31/17 09:15 PT 15.3 Seconds (9.8-13.1) H 12/02/16 13:05 INR 1.4 (0.9-1.2) H 12/02/16 13:05 APTT 37.0 Seconds (25.6-37.1) 12/02/16 13:05 Assessment and Plan (1) Diabetes Status: Chronic (2) ESRD (end stage renal disease) Status: Chronic (3) Cellulitis of leg Status: Chronic (4) Hyperlipidemia Status: Chronic (5) Back pain Status: Acute (6) Bacteremia due to Gram-negative bacteria Status: Acute (7) PVD (peripheral vascular disease) Status: Chronic (8) Osteomyelitis of right leg Status: Acute (9) Seizures Status: Acute
[2017-02-09 00:32] VITALS: RESP 18
--- NOTE | 2017-02-09 02:50 | PN ---
DATE: 02/08/2017 CHIEF COMPLAINT: None at this time. HISTORY OF PRESENT ILLNESS/REVIEW OF SYSTEMS: The patient feels well. No nausea, vomiting, chest pain, palpitations, shortness of breath, cough. No fever or chills. She is orally accepting. PHYSICAL EXAMINATION GENERAL: The patient is comfortable, not in acute distress. VITAL SIGNS: Afebrile. Pulse 98, blood pressure 135/80. Saturation well maintained. LUNGS: Bilateral vesicular breath sounds clear. CARDIOVASCULAR: S1 and S2 normal. No murmur. ABDOMEN: Soft, nontender. No organomegaly. EXTREMITIES: Right AKA and left BKA. LABORATORY DATA: Workup shows white blood cell count is 5.2, hemoglobin 11.9, platelet count is 119. Sodium is 140, potassium 4.7, creatinine is 7.3. Her last phosphorus is 5.2. Last PTH is 164. ASSESSMENT: 1. Right below-knee amputation due to cellulitis. 2. End-stage renal disease, on hemodialysis via permacath MWF. 3. 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 4. History of protein C/S deficiency. RECOMMENDATIONS: No acute need for dialysis today. We will plan for next dialysis on Friday. Continue the multivitamin. Continue the phosphorus binder. She is on low-dose Epogen. Thank you for the consultation. Please call if any questions. Hernan Andino MD
[2017-02-09 07:37] VITALS: BP 168/62; PULSE 103; TEMP 97.5; O2SAT 96
[2017-02-09] MEDS: Simethicone 80 mg Chewtab PO PRN (08:42)
[2017-02-09] MEDS: Pantoprazole 40 mg EC Tab PO SCH (08:46)
[2017-02-09] MEDS: Multivitamin Vitamin B Complex (Nephro-Vite) Tab PO SCH (08:46)
[2017-02-09] MEDS: Santyl Collagenase OINTMENT TOP SCH (08:48)
[2017-02-09] MEDS: Insulin Lispro (humaLOG) 100 Units/ml Inj SC SCH ×3 (08:52→12:27)
--- NOTE | 2017-02-09 14:15 | CP.PCM.PN ---
Subjective - Date & Time of Evaluation Date of Evaluation: 02/09/17 Time of Evaluation: 14:11 - Subjective Subjective: See yesterday's note. Patient is stable for transfer to TCU. Arrangements have been made to continue her hemodialysis at [facility]. Here orders will be the same. Blood work will be done prior to hemodialysis: CBC, CMP, gentamicin and vancomycin trought levels. She will be transported to Dr. Hernandez's office on 02/11 for LASER treatment of diabetic retinopathy. Discharge order written. Objective - Vital Signs/Intake and Output Vital Signs (last 24 hours): Temp Pulse Resp BP Pulse Ox 97.5 F L 103 H 18 168/62 H 96 02/09/17 07:36 02/09/17 08:44 02/09/17 07:36 02/09/17 08:44 02/09/17 07:36 - Medications Medications: Current Medications Acetaminophen (Tylenol 325mg Tab) 650 mg PO Q4 PRN PRN Reason: Fever >100.4 F Last Admin: 12/26/16 19:40 Dose: 650 mg Acetaminophen (Tylenol 325mg Tab) 650 mg PO Q4 PRN PRN Reason: Pain, moderate (4-7) Last Admin: 01/20/17 11:28 Dose: 650 mg Apixaban (Eliquis) 5 mg PO BID [facility] PRN Reason: Protocol Last Admin: 02/09/17 08:44 Dose: 5 mg Aspirin (Ecotrin) 81 mg PO DAILY [facility] Last Admin: 02/09/17 08:45 Dose: 81 mg Atorvastatin Calcium (Lipitor) 40 mg PO DAILY [facility] Last Admin: 02/09/17 08:42 Dose: 40 mg Calcitriol (Rocaltrol) 0.25 mcg PO DAILY [facility] Last Admin: 02/09/17 08:40 Dose: 0.25 mcg Calcium Carbonate (Oscal) 500 mg PO BIDWM [facility] Last Admin: 02/09/17 08:41 Dose: 500 mg Collagenase (Santyl) 1 applic TOP DAILY [facility] Last Admin: 02/09/17 08:48 Dose: 1 applic Diphenhydramine HCl (Benadryl) 25 mg PO Q6 PRN PRN Reason: Itching / Pruritus Last Admin: 12/17/16 09:53 Dose: 25 mg Docusate Sodium (Colace) 100 mg PO BID [facility] Last Admin: 02/09/17 08:41 Dose: 100 mg Epoetin Tha (Procrit) 1,000 unit [place] [facility] Last Admin: 02/07/17 22:02 Dose: 1,000 unit Ergocalciferol (Drisdol 50,000 Intl Units Cap) 1 cap PO WED [facility] Last Admin: 02/05/17 09:06 Dose: 1 cap Fluconazole (Diflucan) 100 mg PO DAILY [facility] Last Admin: 02/09/17 08:45 Dose: 100 mg Gabapentin (Neurontin) 300 mg PO TID [facility] Last Admin: 02/09/17 13:14 Dose: 300 mg Guaifenesin/Dextromethorphan (Robitussin Dm) 10 ml PO Q4 PRN PRN Reason: Cough Last Admin: 01/13/17 10:51 Dose: 10 ml Hydrocortisone (Anusol-Hc) 1 applic IN BID PRN PRN Reason: Inflammation Hydromorphone HCl (Dilaudid) 2 mg PO Q4 PRN PRN Reason: Pain, moderate (4-7) Last Admin: 02/09/17 12:28 Dose: 2 mg Hydromorphone HCl (Dilaudid) 1 mg IVP Q4H PRN PRN Reason: Pain, severe (8-10) Last Admin: 02/08/17 00:50 Dose: 1 mg Sodium Chloride (Sodium Chloride 0.45%) 500 mls @ 10 mls/hr IV .Q24H [facility] Last Admin: 02/08/17 16:22 Dose: Not Given Ceftazidime/Avibactam 0.94 gm/ (Sodium Chloride) 100 mls @ 50 mls/hr IV QOTHERDAY@2200 [facility] Last Admin: 02/07/17 23:15 Dose: 50 mls/hr Vancomycin HCl 500 mg/ Sodium (Chloride) 100 mls @ 100 mls/hr [place] [facility] Last Admin: 02/07/17 21:44 Dose: 100 mls/hr Gentamicin Sulfate 40 mg/ (Sodium Chloride) 50 mls @ 50 mls/hr [place]PB [facility] Last Admin: 02/07/17 21:55 Dose: 50 mls/hr Insulin Detemir (Levemir) 24 units SC [facility] Last Admin: 02/08/17 21:18 Dose: 24 u Insulin Human Lispro (Humalog) 6 units SC ACTID [facility] Last Admin: 02/09/17 12:27 Dose: 6 units Lamotrigine (Lamictal) 25 mg PO BID [facility] Last Admin: 02/09/17 08:42 Dose: 25 mg Levalbuterol HCl (Xopenex) 0.63 mg INH RQ8 PRN PRN Reason: Shortness of Breath Metoprolol Tartrate (Lopressor) 25 mg PO Q12 [facility] Last Admin: 02/09/17 08:44 Dose: 25 mg Nystatin (Nystop Topical Powder) 1 applic TOP BID [facility] Last Admin: 02/09/17 08:48 Dose: 1 applic Ondansetron HCl (Zofran Inj) 4 mg IVP Q6 PRN PRN Reason: Nausea/Vomiting Last Admin: 09/19/16 10:26 Dose: 4 mg Pantoprazole Sodium (Protonix Ec Tab) 40 mg PO DAILY [facility] Last Admin: 02/09/17 08:46 Dose: 40 mg Repaglinide (Prandin) 2 mg PO TIDAC [facility] Last Admin: 02/09/17 12:17 Dose: 2 mg Sennosides (Senokot Tab) 25.8 mg PO HS [facility] Last Admin: 02/08/17 21:17 Dose: 25.8 mg Sevelamer HCl (Renagel) 1,600 mg PO TIDWM [facility] Last Admin: 02/09/17 12:17 Dose: 1,600 mg Simethicone (Mylicon Chew Tab) 80 mg PO Q4H PRN PRN Reason: flatulence or "gassy feeling:" Last Admin: 02/09/17 08:42 Dose: 80 mg Vitamin B Complex/Vit C/Folic Acid (Nephro-Ajay) 1 tab PO DAILY [facility] Last Admin: 02/09/17 08:46 Dose: 1 tab - Labs Labs: 02/05/17 13:45 01/31/17 09:15 PT 15.3 Seconds (9.8-13.1) H 12/02/16 13:05 INR 1.4 (0.9-1.2) H 12/02/16 13:05 APTT 37.0 Seconds (25.6-37.1) 12/02/16 13:05 Assessment and Plan (1) Status post below knee amputation of right lower extremity Status: Acute (2) ESRD (end stage renal disease) on dialysis Status: Chronic (3) DM type 2 (diabetes mellitus, type 2) Status: Chronic (4) Peripheral arterial occlusive disease Status: Chronic (5) Coagulopathy Status: Chronic (6) Seizure disorder Status: Acute (7) Elevated liver enzymes Status: Acute
--- NOTE | 2017-02-09 15:25 | CP.PCM.PN ---
Subjective - Date & Time of Evaluation Date of Evaluation: 02/09/17 Time of Evaluation: 15:23 - Subjective Subjective: Follow up Nephrology Consultation Note Assessment/Plan: End stage renal disease on hemodialysis (MWF) via permacath: no acute need for dialysis today. next HD friday as ordered. continue with Nephrovite 1 tab/day. Anemia: PRBC as needed. On MARTHA as Epogen Hyperphosphatemia: continue with current meds as renagel 1600 TID, Secondary hyperparathyroidism with Vit D Deficiency: on calcitriol Hypertension controlled Glycemic control, Dialysis consistent diet Further work up/management as per primary team. 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 Dose meds/antibiotics for ESRD status. Avoid fleets enema/magnesium based laxatives. Thanks for allowing me to participate in care of your patient. Will follow patient with you. Please call if any Qs Dr Hernan Andino Office: [phone] Subjective: Noted events overnight. Denies chest pain, palpitation, shortness of breath. 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 obese Vitals reviewed and noted as below Lungs: Normal respiratory rate/effort. Breath sounds bilateral equal and clear Heart: Normal rate. s1s2 normal. No rub or gallop. Extremities: s/p Rt BKA, hx of left BKA. Neurological: Patient is alert, awake and oriented to person, place and time. No focal deficit. Strength bilateral appropriate and equal Skin: Warm and dry. Normal turgor. No rash. Palpitation: Normal elasticity for age Abdomen: Abdomen is soft. Bowel sounds +. There is no abdominal tenderness, no guarding/rigidity or organomegaly. she is obese : kidney or bladder not palpable Access: permacath Labs/imaging reviewed. Past medical history, past surgical history, family history, social history, allergy reviewed Objective - Vital Signs/Intake and Output Vital Signs (last 24 hours): Temp Pulse Resp BP Pulse Ox 97.5 F L 103 H 18 168/62 H 96 02/09/17 07:36 02/09/17 08:44 02/09/17 07:36 02/09/17 08:44 02/09/17 07:36 - Labs Labs: 02/05/17 13:45 01/31/17 09:15 PT 15.3 Seconds (9.8-13.1) H 12/02/16 13:05 INR 1.4 (0.9-1.2) H 12/02/16 13:05 APTT 37.0 Seconds (25.6-37.1) 12/02/16 13:05
--- NOTE | 2017-02-09 19:15 | PN ---
ENDO FOLLOWUP NOTE DATE: Room #661 This is a 46-year-old female with recent uncontrolled type 2 insulin-requiring diabetes, now being followed closely for metabolic management. Her glycemic levels are fluctuating, but much improved at this time and the latest glucose levels have ranged from 111 to 137 and 205 mg/dL. So, at this time, we will continue the same basal and bolus insulin regimen to allow for dose equilibration and keep her on the Levemir given as 24 units subcutaneously at bedtime daily as ordered. We will continue the Humalog given as 6 units subcutaneously t.i.d. before meals as ordered. We will titrate incrementally as indicated to optimize metabolic control. We will follow. Irene Ambrose MD
--- NOTE | 2017-02-09 19:57 | CP.PCM.PN ---
Subjective - Date & Time of Evaluation Date of Evaluation: 02/09/17 Time of Evaluation: 14:00 - Subjective Subjective: Patient is not suffering from seizures on Lamictal 25 mg Q 12 hrs. She is receiving hemodialysis on ,,. She will receive Laser Therapy for her Retinopathy. She has a controlled Osteomyelitis in the Right BKA on Antibiotics. She is transferred to a [facility] facility and will be receiving Hemodialysis as an Outpatient. Objective - Vital Signs/Intake and Output Vital Signs (last 24 hours): Temp Pulse Resp BP Pulse Ox 97.5 F L 103 H 18 168/62 H 96 02/09/17 07:36 02/09/17 08:44 02/09/17 07:36 02/09/17 08:44 02/09/17 07:36 - Labs Labs: 02/05/17 13:45 01/31/17 09:15 PT 15.3 Seconds (9.8-13.1) H 12/02/16 13:05 INR 1.4 (0.9-1.2) H 12/02/16 13:05 APTT 37.0 Seconds (25.6-37.1) 12/02/16 13:05 Assessment and Plan (1) Diabetes Status: Chronic (2) ESRD (end stage renal disease) Status: Chronic (3) Cellulitis of leg Status: Chronic (4) Hyperlipidemia Status: Chronic (5) PVD (peripheral vascular disease) Status: Chronic (6) Osteomyelitis of right leg Status: Chronic (7) Seizures Assessment & Plan: Controlled seizures on Lamictal. Status: Chronic
--- NOTE | 2017-02-10 03:17 | PN ---
Room #661. This is a 46-year-old female with recent uncontrolled type 2 insulin-requiring diabetes, now being followed closely for metabolic management. Her glycemic levels are fluctuating, but much improved at this time. Her oral intake is also quite variable as per the nursing staff, and today's glucose level was low normal this morning with the glucose level of 79 mg/dL, the repeat level was 134 as noted. So, for now she is scheduled for discharge. We will continue the same basal and bolus insulin regimen as recommended with Levemir given as 24 units subcu at bedtime daily as ordered. We will continue the Humalog, given at 6 units subcu t.i.d. before meals as ordered. We will titrate incremental as indicated to optimize metabolic control. We will follow. Irene Ambrose MD
== END 2017-02-09 14:33 | DRG 853 ==
LOC: H.ER 13:55 → H.ERHOLD 16:23 → H.TEL 21:11 → H.ICU/CCU 08-28 16:37 → H.MEDSURG1 09-18 19:07 → H.ICU/CCU 11-15 21:30 → H.MEDSURG1 11-21 21:58 → H.ICU/CCU 12-26 08:20 → H.MEDSURG1 12-27 14:47
PROVIDERS: ADMIT Internal Medicine; ATTEND Internal Medicine
PROC: 02HV33Z Insertion of Infusion Device into Superior Vena Cava, Percutaneous Approach (ICD-10-PCS; 2016-08-27)
PROC: B518ZZA Fluoroscopy of Superior Vena Cava, Guidance (ICD-10-PCS; 2016-08-27)
PROC: B548ZZA Ultrasonography of Superior Vena Cava, Guidance (ICD-10-PCS; 2016-08-27)
PROC: 5A1D70Z Performance of Urinary Filtration, Intermittent, Less than 6 Hours Per Day (ICD-10-PCS; 2016-08-29)
PROC: 30233N1 Transfusion of Nonautologous Red Blood Cells into Peripheral Vein, Percutaneous Approach (ICD-10-PCS; 2016-09-02)
PROC: 06H033Z Insertion of Infusion Device into Inferior Vena Cava, Percutaneous Approach (ICD-10-PCS; 2016-09-16)
PROC: B519ZZA Fluoroscopy of Inferior Vena Cava, Guidance (ICD-10-PCS; 2016-09-16)
PROC: B549ZZA Ultrasonography of Inferior Vena Cava, Guidance (ICD-10-PCS; 2016-09-16)
PROC: 3E04329 Introduction of Other Anti-infective into Central Vein, Percutaneous Approach (ICD-10-PCS; 2016-09-16)
PROC: 0Y6H0Z2 Detachment at Right Lower Leg, Mid, Open Approach (ICD-10-PCS; principal; 2016-10-01 14:00)
PROC: 0UDB8ZX Extraction of Endometrium, Via Natural or Artificial Opening Endoscopic, Diagnostic (ICD-10-PCS; 2016-10-11)
PROC: 0U5B8ZZ Destruction of Endometrium, Via Natural or Artificial Opening Endoscopic (ICD-10-PCS; 2016-10-11)
PROC: 0KBS0ZZ Excision of Right Lower Leg Muscle, Open Approach (ICD-10-PCS; 2016-10-15)
PROC: 0JBN0ZZ Excision of Right Lower Leg Subcutaneous Tissue and Fascia, Open Approach (ICD-10-PCS; 2016-11-19)
PROC: 0JXN0ZB Transfer Right Lower Leg Subcutaneous Tissue and Fascia with Skin and Subcutaneous Tissue, Open Approach (ICD-10-PCS; 2016-11-19)
PROC: 0JBN0ZZ Excision of Right Lower Leg Subcutaneous Tissue and Fascia, Open Approach (ICD-10-PCS; 2016-11-29)
PROC: 0JBN0ZZ Excision of Right Lower Leg Subcutaneous Tissue and Fascia, Open Approach (ICD-10-PCS; 2016-12-03)
PROC: 2W1LX6Z Compression of Right Lower Extremity using Pressure Dressing (ICD-10-PCS; 2016-12-03)
PROC: 3E0234Z Introduction of Serum, Toxoid and Vaccine into Muscle, Percutaneous Approach (ICD-10-PCS; 2017-01-25)
DX: A41.51 Sepsis due to Escherichia coli [E. coli] (principal); R65.21 Severe sepsis with septic shock; J15.0 Pneumonia due to Klebsiella pneumoniae; E87.2 Acidosis; E11.52 Type 2 diabetes mellitus with diabetic peripheral angiopathy with gangrene; N18.6 End stage renal disease; D68.8 Other specified coagulation defects; D68.59 Other primary thrombophilia; L03.115 Cellulitis of right lower limb; M86.171 Other acute osteomyelitis, right ankle and foot; I13.11 Hypertensive heart and chronic kidney disease without heart failure, with stage 5 chronic kidney disease, or end stage renal disease; L97.419 Non-pressure chronic ulcer of right heel and midfoot with unspecified severity; T81.30XA Disruption of wound, unspecified, initial encounter; T87.43 Infection of amputation stump, right lower extremity; T81.4XXA Infection following a procedure, initial encounter; L03.116 Cellulitis of left lower limb; I47.1 Supraventricular tachycardia; A41.59 Other Gram-negative sepsis; L89.152 Pressure ulcer of sacral region, stage 2; L89.302 Pressure ulcer of unspecified buttock, stage 2; I95.3 Hypotension of hemodialysis; E11.21 Type 2 diabetes mellitus with diabetic nephropathy; E11.42 Type 2 diabetes mellitus with diabetic polyneuropathy; B95.61 Methicillin susceptible Staphylococcus aureus infection as the cause of diseases classified elsewhere; D50.0 Iron deficiency anemia secondary to blood loss (chronic); D63.8 Anemia in other chronic diseases classified elsewhere; E11.65 Type 2 diabetes mellitus with hyperglycemia; E11.319 Type 2 diabetes mellitus with unspecified diabetic retinopathy without macular edema; E11.610 Type 2 diabetes mellitus with diabetic neuropathic arthropathy; E11.621 Type 2 diabetes mellitus with foot ulcer; L97.519 Non-pressure chronic ulcer of other part of right foot with unspecified severity; E11.649 Type 2 diabetes mellitus with hypoglycemia without coma; Z79.4 Long term (current) use of insulin; Z79.84 Long term (current) use of oral hypoglycemic drugs; E55.9 Vitamin D deficiency, unspecified; E66.01 Morbid (severe) obesity due to excess calories; E78.00 Pure hypercholesterolemia, unspecified; E78.5 Hyperlipidemia, unspecified; E88.81 Metabolic syndrome and other insulin resistance; E87.70 Fluid overload, unspecified; G54.6 Phantom limb syndrome with pain; M79.605 Pain in left leg; G89.29 Other chronic pain; I25.10 Atherosclerotic heart disease of native coronary artery without angina pectoris; J45.909 Unspecified asthma, uncomplicated; K59.00 Constipation, unspecified; K80.20 Calculus of gallbladder without cholecystitis without obstruction; T87.81 Dehiscence of amputation stump; Y83.5 Amputation of limb(s) as the cause of abnormal reaction of the patient, or of later complication, without mention of misadventure at the time of the procedure; N92.1 Excessive and frequent menstruation with irregular cycle; G40.909 Epilepsy, unspecified, not intractable, without status epilepticus; Z89.512 Acquired absence of left leg below knee; Z99.2 Dependence on renal dialysis; Z68.38 Body mass index [BMI] 38.0-38.9, adult; Z16.24 Resistance to multiple antibiotics; Z23 Encounter for immunization; Z74.01 Bed confinement status; Z79.82 Long term (current) use of aspirin; Z87.01 Personal history of pneumonia (recurrent); Z88.8 Allergy status to other drugs, medicaments and biological substances; Z79.2 Long term (current) use of antibiotics; Z79.01 Long term (current) use of anticoagulants; Y92.239 Unspecified place in hospital as the place of occurrence of the external cause

== ENCOUNTER 2017-02-09 13:44 | Inpatient (IN) | payer MEDICARE, MEDICAID ==
[2017-02-09 14:55] VITALS: BMI 34.5
[2017-02-09] MEDS ORDERED: Sodium Chloride 0.45% 500ml 500 ML SOL IV SCH (16:30)
[2017-02-09] MEDS: Insulin Lispro (humaLOG) 100 Units/ml Inj SC SCH (17:09)
--- NOTE | 2017-02-09 17:38 | CP.PCM.HP ---
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 She had been under podiatric care for the previous 6 months for a Charcot joint of the right ankle with a non-healing ulcer. Within hours she developed septic shock and suffered a seizure. After extensive ICU care she was ultimately diagnosed with osteomyelitis of the right ankle and lower leg and required right below the knee amputation on 10/01/16. This required two subsequent revisions (on 11/22 and 12/02). Along the way she developed an infected abrasion of the right patella. The right BK wound dehisced and was found to be infected by multidrug resistant Klebsiella pneumoniae. Dr. Levon Lemon managed the infectious disease complication and multiple antibiotics. With the use of several combined iv antibiotics (which continue) and finally with negative pressure wound therapy (wound vac), the BK surgical wound has been healing well. The patellar infection was also responding to chemical debridement with Santyl. Vascular evaluation and the several surgeries involving the right leg were done by Drs. Magan Mccormack and Dariel Doran, vascular surgeons. They continued to provide ongoing post-surgical care with the help of the wound care nursing team. A number of sacral decubitus ulcerations and left knee skin breakdown were managed with success by the wound care team. Previous history involved a coagulopathy involving thrombophilia. Because of the need for hemodialysis, multiple AV fistulae were created and subsequently clotted. On one occasion an attempt was made to de-clot a femoral AV fistula, which resulted in embolization of thrombus to the left leg, and she required a left BK amutation . Vascular occlusion to the digits caused loss of her third right fnger due to osteomyelitis. 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 When the cause of these vascular occlusions was finallly identified, the patient was placed on Eliquis and aspirin and all forms of heparin were avoided. Other complications involved pneumonia - treated with antibiotics and nebulizer therapy (Dr. Richard Flores) and brittle diabetes which required complex adjustments of oral and subcutaneous insulins by epic anesthesia analyst (Dr. Richard Ambrose). After being started on anti-seizure medication by Dr. Danii Maguire there were no further seizures, but Topamax had to be stopped due to gallstone and replace by Lamictal. Anemia was caused by multiple factors (dialysis, renal disease, antibiotics), but mainly was caused by severe menorrhagia. Endometrial ablation was performed by Dr. Tierney Larry (turf sales person) with resultant cessation of menses and imporved red blood cell counts. The pathology of the uterine specimens was negative for malignancy. Opthalmology examination performed by Dr. july Hernandez revealed normal intra- ocular pressures, but there was severe diabetic retinopathy. Arrangements have been made for her to have LASER treatment for this at his facility on 02/11/17., The patient's ESRD has been managed by Dr. Alta Guadarrama and colleagues. She has a right subclavian Permacath which has held up well. Hemodialysis will be done every MWF at [facility]. At one point the patient had tachycardia (SVT) to 130 and elevated blood pressure. Acid Patroller Dr. Gallito Shepard recommended that we use low dose beta- kat[place]ka (avoiding high doses because of risk of vasospasm), and this was successful. Hematology problems involving managing coagulation problems, a number of transfusions of red blood cells, and related issues were solved by Dr. Evita Shepard. Mildly elevated LFT's in the presence of gallstones - prompted stopping Topamax. Ultrasound showed no gallbladder thickening or ductal obstruction and the patient is asymptomatic. We are watching this. The patient needed 2 PICC lines (the first by Dr. Levon Heck, the second by Dr. Cameron Caicedo), which were difficult to accomplish since the patient has very little usable vasculature. A left femoral vein PICC line continues to function well. Intensive Physical and Occupational Therapy was provided - so well that the patient is able to transfer (with assistance) using a sliding board from bed to chair and back. She can stand on her left BK prosthesis (again, with assistance ). Upper body and truncal stability have been improving, and she is now transferred to TCU for continuing wound and IV antibiotic therapy as well as ongoing subacute rehabilitative therapies. She is not yet strong enough for the 3 hours per day that would be required for acute rehabilitation. MEDICATIONS: (SEE LIST FOR DETAILS) Apixiban (Eliquis) 5mg bid ASA-EC 81 mg i qd Lipitor 40mg i qd Rocaltrol 0.25mg qd Calcium Carbonate 500mg bid Ceftazidime/avibactam 0.94mg in 100 cc saline q 48h IV Gentamicin 40mg q MWF after HD IV Vancomycin 500mg qMWF after HD IV Dilaudid 2mg PO q4h prn moderate pain Dilaudid 1mg IV q4h prn severe pain Procrit 1000 units q MWF iv Drisdol 50,000 international units q WEd Diflucan 100mg po daily Gabapentin 300mg po tid Insulin detemir (Levemir) 24 units subcut q hs Insulin Lispro (Humalog) 6 untis subcut tid ac Lamictal 25mg po bid Xopenex 0.63mg inhalation q8h prn Metoprolol tartrate 25mg po q12h Protonix-EC 40mg po qd Repaglinide (Prandin) 2mg tid ac Sennosides 25.8mg po qhs Renagel (sevelamer) 1,600mg tid Nephrovite i po qd Colace 100mg bid Benadryl 25mg po q6h prn pruritis Santyl dressing to patellar wound after cleaning/debriding with saline gauze daily Anusol-HC to rectal area bid prn anal fissure. Robitussin-DM 10ml po q4h prn cough Present on Admission - Present on Admission Any Indicators Present on Admission: Yes History of Uncontrolled Diabetes: Yes History Surgical Site Infection Following: Orthopedic Procedures Review of Systems - Review of Systems Systems not reviewed;Unavailable: Other All systems: reviewed and no additional remarkable complaints except (as noted in HPI) Past Patient History - Tetanus Immunizations Tetanus Immunization: Up to Date - Past Medical History & Family History Past Medical History?: Yes - Past Social History Smoking Status: Never Smoked Chewing Tobacco Use: No Occupation: disabled Alcohol: None Drugs: Denies Home Situation {Lives}: Other (Nephew lives in apartment but is of limited help) - CARDIAC Hx Hypercholesterolemia: Yes Hx Hypertension: Yes - PULMONARY Hx Respiratory Disorders: Yes Hx Pneumonia: Yes - NEUROLOGICAL Hx Neurological Disorder: Yes Hx Seizures: Yes (see hpi) - HEENT Hx HEENT Problems: Yes Hx Cataracts: Yes Other/Comment: Diabetic retinopathy - RENAL Hx Chronic Kidney Disease: Yes Hx Dialysis: Yes Type of Dialysis Access: Permacath Date of Last Dialysis Treatment: 02/07/17 - ENDOCRINE/METABOLIC Hx Diabetes Mellitus Type 2: Yes - HEMATOLOGICAL/ONCOLOGICAL Hx Blood Disorders: Yes (THROMBOPHILIA - Heparin Ab's, Protein C & S deficiencies.) Hx Anemia: Yes Hx Blood Transfusions: Yes Hx Blood Transfusion Reaction: No Hx Hepatitis B: Yes (Ab positive) Hx Hepatitis C: No Hx Human Immunodeficiency Virus (HIV): No - INTEGUMENTARY Hx Dermatological Problems: No - MUSCULOSKELETAL/RHEUMATOLOGICAL Hx Musculoskeletal Disorders: Yes (Charcot joint right ankle) Hx Back Pain: Yes Hx Falls: No Hx Osteomyelitis: Yes (Multiple sites see hpi) - GASTROINTESTINAL Hx Gastrointestinal Disorders: Yes Other/Comment: hx of anal fissure - GENITOURINARY/GYNECOLOGICAL Hx Genitourinary Disorders: Yes Other/Comment: Menorrhagia - PSYCHIATRIC Hx Psychophysiologic Disorder: No Hx Substance Use: No - SURGICAL HISTORY Hx Surgeries: Yes Hx Amputation: Yes Hx Arteriovenous Shunt: Yes Hx Vascular Access Device: Yes (R subclavian Permacath) Other/Comment: INSERTION OF DIALYSIS CATH;CATARACT-BOTH EYES;LEFT BELOW KNEE AMPUTATION, RIGHT BK AMPUTATION, MULTIPLE FINGER AMPUTATIONS - ANESTHESIA Hx Anesthesia: Yes Hx Anesthesia Reactions: No Hx Malignant Hyperthermia: No Meds Allergies/Adverse Reactions: Allergies Allergy/AdvReac Type Severity Reaction Status Date / Time heparin AdvReac Severe ANAPHYLAXIS Verified 02/09/17 17:46 Beta-Blockers AdvReac Mild none of Verified 12/29/16 10:25 (Beta-Adrenergic Bloc the listed reactions tramadol [From Ultram] AdvReac Unknown potential Verified 09/18/16 10:41 vasoconstriction Physical Exam - Constitutional Appears: No Acute Distress - Head Exam Head Exam: NORMAL INSPECTION - Eye Exam Eye Exam: Normal appearance Additional comments: see report previously done by Dr. [place] Hernandez. - ENT Exam ENT Exam: Mucous Membranes Moist - Neck Exam Neck exam: Positive for: Normal Inspection Additional comments: Right subclavian Permacath intact. - Respiratory Exam Respiratory Exam: Clear to Auscultation Bilateral, NORMAL BREATHING PATTERN - Cardiovascular Exam Cardiovascular Exam: REGULAR RHYTHM, +S1, +S2 - GI/Abdominal Exam GI & Abdominal Exam: Normal Bowel Sounds, Soft - Extremities Exam Additional comments: Hands warm, weak radial pulses. Missing R third finger and L 2nd, 3rd, 4th fingers and contracture l 5th finger. S/P L BK amputation - well healed. R BK wound vac in place and dressing on this and patella. Left femoral PICC line in place. - Back Exam Back exam: NORMAL INSPECTION - Neurological Exam Neurological exam: Alert, CN II-XII Intact, Oriented x3 - Psychiatric Exam Psychiatric exam: Normal Affect, Normal Mood - Skin Skin Exam: Dry, Normal Color, Warm Additional comments: Area of ecchymosis and thickening L flank - healing. 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
[2017-02-09] MEDS: Simethicone 80 mg Chewtab PO SCH (18:08)
[2017-02-09 19:06] VITALS: RESP 20
[2017-02-09] MEDS: Insulin Detemir 100 Units/ml Inj SC SCH (21:16)
[2017-02-10 06:52] LABS: HEMATOCRIT 36.6 % (34.0-47.0); MEAN CELL VOLUME 92.9 fl (81.0-99.0); MEAN CORPUSCULAR HEMOGLOBIN 29.2 pg (27.0-31.0); MEAN CORPUSCULAR HGB CONC 31.4 g/dL (33.0-37.0); RED CELL DISTRIBUTION WIDTH 18.2 % (11.5-14.5); WHITE BLOOD COUNT 10.7 K/uL (4.8-10.8)
[2017-02-10 07:14] LABS: BILIRUBIN,TOTAL 0.5 mg/dl (0.2-1.3); CALCIUM 9.4 mg/dL (8.4-10.2); POTASSIUM 5.9 MMOL/L (3.6-5.0); TOTAL PROTEIN 7.8 G/DL (6.3-8.2)
[2017-02-10] MEDS: Multivitamin Vitamin B Complex (Nephro-Vite) Tab PO SCH (08:12)
[2017-02-10] MEDS: Pantoprazole 40 mg EC Tab PO SCH (08:17)
[2017-02-10] MEDS: Simethicone 80 mg Chewtab PO SCH ×3 (08:19→17:05)
[2017-02-10] MEDS: Insulin Lispro (humaLOG) 100 Units/ml Inj SC SCH ×3 (08:21→17:13)
--- NOTE | 2017-02-10 08:42 | CP.PCM.PN ---
Subjective - Date & Time of Evaluation Date of Evaluation: 02/10/17 Time of Evaluation: 08:31 - Subjective Subjective: SEE YESTERDAY'S H & P FOR DETAILS OF HS/ DX/RX. Patient had a brief episode of "heartburn" which she attributes to her food. No pain or dyspne now. She will be going to [facility] for hemodialysis later this morning. I spoke with Dr. Guadarrama. Vancomycin trough level is 9 (desirable is 5-10). Gentamicin level is still pending. I will await that level and then order both antibiotics after patient returns from hemodialysis. Current levels have been Vanco 500mg and Gent 40mg MWF post dialysis. Ceftazidime/avibactam was not given yesterday because [employer] software cannot think! I spoke with pharmacy and the nurse, and it will be given after dialysis today.Otherwise Blucose = 150 (on Prandin and two types of insulin) Dr. Ambrose is managing. Labs done - wbc aroud 10 is a slight concern, but pictures of RLE wounds looked good. Otherwise stable VS. Lungs clear. Heart RR, no murmurs or rubs. Abd- soft and non-tender. RLE dressings in place. Objective - Vital Signs/Intake and Output Vital Signs (last 24 hours): Temp Pulse Resp BP Pulse Ox 107 H 20 156/79 H 02/10/17 08:14 02/09/17 18:20 02/10/17 08:14 - Medications Medications: Current Medications Acetaminophen (Tylenol 325mg Tab) 650 mg PO Q4 PRN PRN Reason: Fever >100.4 F Acetaminophen (Tylenol 325mg Tab) 650 mg PO Q4 PRN PRN Reason: Pain, Mild (1-3) Apixaban (Eliquis) 5 mg PO BID ON LICENSE OF [facility] PRN Reason: Protocol Last Admin: 02/10/17 08:17 Dose: 5 mg Aspirin (Ecotrin) 81 mg PO DAILY ON LICENSE OF [facility] Last Admin: 02/10/17 08:18 Dose: 81 mg Atorvastatin Calcium (Lipitor) 40 mg PO DAILY ON LICENSE OF [facility] Last Admin: 02/10/17 08:20 Dose: 40 mg Calcitriol (Rocaltrol) 0.25 mcg PO DAILY ON LICENSE OF [facility] Last Admin: 02/10/17 08:14 Dose: 0.25 mcg Calcium Carbonate (Oscal) 500 mg PO BIDWM ON LICENSE OF [facility] Last Admin: 02/10/17 08:15 Dose: 500 mg Collagenase (Santyl) 1 applic TOP DAILY ON LICENSE OF [facility] Docusate Sodium (Colace) 100 mg PO BID ON LICENSE OF [facility] Last Admin: 02/10/17 08:16 Dose: 100 mg Ergocalciferol (Drisdol 50,000 Intl Units Cap) 1 cap PO Q7D ON LICENSE OF [facility] Fluconazole (Diflucan) 100 mg PO DAILY ON LICENSE OF [facility] Last Admin: 02/10/17 08:18 Dose: 100 mg Gabapentin (Neurontin) 300 mg PO TID ON LICENSE OF [facility] Last Admin: 02/10/17 08:18 Dose: 300 mg Hydromorphone HCl (Dilaudid) 2 mg PO Q4 PRN PRN Reason: Pain, moderate (4-7) Last Admin: 02/10/17 06:21 Dose: 2 mg Hydromorphone HCl (Dilaudid) 1 mg IVP Q4 PRN PRN Reason: Pain, severe (8-10) Ceftazidime/Avibactam 0.94 gm/ (Sodium Chloride) 100 mls @ 50 mls/hr IVPB QOTHERDAY ON LICENSE OF [facility] Insulin Detemir (Levemir) 24 units SC HS ON LICENSE OF [facility] Last Admin: 02/09/17 21:16 Dose: 24 u Insulin Human Lispro (Humalog) 6 units SC ACTID ON LICENSE OF [facility] Last Admin: 02/10/17 08:21 Dose: 6 units Lamotrigine (Lamictal) 25 mg PO BID ON LICENSE OF [facility] Last Admin: 02/10/17 08:17 Dose: 25 mg Metoprolol Tartrate (Lopressor) 25 mg PO Q12 ON LICENSE OF [facility] Last Admin: 02/10/17 08:14 Dose: 25 mg Nystatin (Nystop Topical Powder) 1 applic TOP TID ON LICENSE OF [facility] Last Admin: 02/10/17 08:22 Dose: 1 applic Ondansetron HCl (Zofran Inj) 4 mg IVP Q6 PRN PRN Reason: Nausea/Vomiting Pantoprazole Sodium (Protonix Ec Tab) 40 mg PO DAILY ON LICENSE OF [facility] Last Admin: 02/10/17 08:17 Dose: 40 mg Repaglinide (Prandin) 2 mg PO TIDAC ON LICENSE OF [facility] Last Admin: 02/10/17 08:17 Dose: 2 mg Sennosides (Senokot Tab) 25.8 mg PO [facility] Last Admin: 02/09/17 21:16 Dose: 25.8 mg Sevelamer HCl (Renagel) 1,600 mg PO TID ON LICENSE OF [facility] Last Admin: 02/10/17 08:14 Dose: 1,600 mg Simethicone (Mylicon Chew Tab) 80 mg PO TID ON LICENSE OF [facility] Last Admin: 02/10/17 08:19 Dose: 80 mg Sodium Chloride (Sodium Chloride 0.45%) 500 ml IV CONT ON LICENSE OF [facility] Vitamin B Complex/Vit C/Folic Acid (Nephro-Ajay) 1 tab PO DAILY ON LICENSE OF [facility] Last Admin: 02/10/17 08:12 Dose: 1 tab - Labs Labs: 02/10/17 06:30 02/10/17 06:30 Assessment and Plan (1) Status post below knee amputation of right lower extremity Status: Acute (2) Infection of amputation stump of right lower extremity Status: Acute (3) ESRD (end stage renal disease) on dialysis Status: Chronic (4) DM type 2 (diabetes mellitus, type 2) Status: Chronic (5) Elevated liver enzymes Status: Acute (6) Seizure disorder Status: Acute (7) Coagulopathy Status: Chronic (8) 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
--- NOTE | 2017-02-10 09:25 | CP.PCM.CON ---
History of Present Illness - History of Present Illness History of Present Illness: This patient who is 46 years of age admitted to the hospital in August 2016 with right foot ulcer and osteomyelitis subsequently required to have below knee amputation complicated with multiple wound infection. With very complicated past medical and surgical history with multiple surgical procedures required throughout all this time. 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 Patient also anemic that required to be given EPO and supplement and has been stable. Patient lately discovered to have gallstone when she has abnormal liver function tests which has been what appeared to be corrected and monitor the the cholelithiasis. Patient transferred to subacute unit for father antibiotics treatment and father rehabilitation And meantime she will be going as outpatient for hemodialysis Review of Systems - Constitutional Constitutional: absent: Chills - Breasts Breasts: As Per HPI - Cardiovascular Cardiovascular: absent: Chest Pain, Dyspnea - Respiratory Respiratory: absent: Cough, Dyspnea - Gastrointestinal Gastrointestinal: Abdominal Pain - Integumentary Integumentary: As Per HPI - Neurological Neurological: As Per HPI, Abnormal Gait - Psychiatric Psychiatric: As Per HPI - Endocrine Endocrine: As Per HPI - Hematologic/Lymphatic Hematologic: As Per HPI Past Patient History - Tetanus Immunizations Tetanus Immunization: Up to Date - Past Medical History & Family History Past Medical History?: Yes - Past Social History Smoking Status: Never Smoked - CARDIAC Hx Hypercholesterolemia: Yes Hx Hypertension: Yes - PULMONARY Hx Respiratory Disorders: Yes Hx Pneumonia: Yes - NEUROLOGICAL Hx Neurological Disorder: Yes Hx Seizures: Yes (see hpi) - HEENT Hx HEENT Problems: Yes Hx Cataracts: Yes Other/Comment: Diabetic retinopathy - RENAL Hx Chronic Kidney Disease: Yes Hx Dialysis: Yes Type of Dialysis Access: Permacath Date of Last Dialysis Treatment: 02/07/17 - ENDOCRINE/METABOLIC Hx Diabetes Mellitus Type 2: Yes - HEMATOLOGICAL/ONCOLOGICAL Hx Blood Disorders: Yes (THROMBOPHILIA - Heparin Ab's, Protein C & S deficiencies.) Hx Anemia: Yes Hx Blood Transfusions: Yes Hx Blood Transfusion Reaction: No Hx Hepatitis B: Yes (Ab positive) Hx Hepatitis C: No Hx Human Immunodeficiency Virus (HIV): No - INTEGUMENTARY Hx Dermatological Problems: No - MUSCULOSKELETAL/RHEUMATOLOGICAL Hx Musculoskeletal Disorders: Yes (Charcot joint right ankle) Hx Back Pain: Yes Hx Falls: No Hx Osteomyelitis: Yes (Multiple sites see hpi) - GASTROINTESTINAL Hx Gastrointestinal Disorders: Yes Other/Comment: hx of anal fissure - GENITOURINARY/GYNECOLOGICAL Hx Genitourinary Disorders: Yes Other/Comment: Menorrhagia - PSYCHIATRIC Hx Psychophysiologic Disorder: No Hx Substance Use: No - SURGICAL HISTORY Hx Surgeries: Yes Hx Amputation: Yes Hx Arteriovenous Shunt: Yes Hx Vascular Access Device: Yes (R subclavian Permacath) Other/Comment: INSERTION OF DIALYSIS CATH;CATARACT-BOTH EYES;LEFT BELOW KNEE AMPUTATION, RIGHT BK AMPUTATION, MULTIPLE FINGER AMPUTATIONS - ANESTHESIA Hx Anesthesia: Yes Hx Anesthesia Reactions: No Hx Malignant Hyperthermia: No Meds Allergies/Adverse Reactions: Allergies Allergy/AdvReac Type Severity Reaction Status Date / Time heparin AdvReac Severe ANAPHYLAXIS Verified 02/09/17 17:46 Beta-Blockers AdvReac Mild none of Verified 12/29/16 10:25 (Beta-Adrenergic Bloc the listed reactions tramadol [From Ultram] AdvReac Unknown potential Verified 09/18/16 10:41 vasoconstriction - Medications Medications: Current Medications Acetaminophen (Tylenol 325mg Tab) 650 mg PO Q4 PRN PRN Reason: Fever >100.4 F Acetaminophen (Tylenol 325mg Tab) 650 mg PO Q4 PRN PRN Reason: Pain, Mild (1-3) Apixaban (Eliquis) 5 mg PO BID [facility] PRN Reason: Protocol Last Admin: 02/10/17 08:17 Dose: 5 mg Aspirin (Ecotrin) 81 mg PO DAILY [facility] Last Admin: 02/10/17 08:18 Dose: 81 mg Atorvastatin Calcium (Lipitor) 40 mg PO DAILY [facility] Last Admin: 02/10/17 08:20 Dose: 40 mg Calcitriol (Rocaltrol) 0.25 mcg PO DAILY [facility] Last Admin: 02/10/17 08:14 Dose: 0.25 mcg Calcium Carbonate (Oscal) 500 mg PO BIDWM [facility] Last Admin: 02/10/17 08:15 Dose: 500 mg Collagenase (Santyl) 1 applic TOP DAILY [facility] Docusate Sodium (Colace) 100 mg PO BID [facility] Last Admin: 02/10/17 08:16 Dose: 100 mg Ergocalciferol (Drisdol 50,000 Intl Units Cap) 1 cap PO Q7D [facility] Fluconazole (Diflucan) 100 mg PO DAILY [facility] Last Admin: 02/10/17 08:18 Dose: 100 mg Gabapentin (Neurontin) 300 mg PO TID [facility] Last Admin: 02/10/17 08:18 Dose: 300 mg Hydromorphone HCl (Dilaudid) 2 mg PO Q4 PRN PRN Reason: Pain, moderate (4-7) Last Admin: 02/10/17 06:21 Dose: 2 mg Hydromorphone HCl (Dilaudid) 1 mg IVP Q4 PRN PRN Reason: Pain, severe (8-10) Ceftazidime/Avibactam 0.94 gm/ (Sodium Chloride) 100 mls @ 50 mls/hr IVPB QOTHERDAY@1700 [facility] Insulin Detemir (Levemir) 24 units SC HS [facility] Last Admin: 02/09/17 21:16 Dose: 24 u Insulin Human Lispro (Humalog) 6 units SC ACTID [facility] Last Admin: 02/10/17 08:21 Dose: 6 units Lamotrigine (Lamictal) 25 mg PO BID [facility] Last Admin: 02/10/17 08:17 Dose: 25 mg Metoprolol Tartrate (Lopressor) 25 mg PO Q12 [facility] Last Admin: 02/10/17 08:14 Dose: 25 mg Nystatin (Nystop Topical Powder) 1 applic TOP TID [facility] Last Admin: 02/10/17 08:22 Dose: 1 applic Ondansetron HCl (Zofran Inj) 4 mg IVP Q6 PRN PRN Reason: Nausea/Vomiting Pantoprazole Sodium (Protonix Ec Tab) 40 mg PO DAILY [facility] Last Admin: 02/10/17 08:17 Dose: 40 mg Repaglinide (Prandin) 2 mg PO TIDAC [facility] Last Admin: 02/10/17 08:17 Dose: 2 mg Sennosides (Senokot Tab) 25.8 mg PO HS [facility] Last Admin: 02/09/17 21:16 Dose: 25.8 mg Sevelamer HCl (Renagel) 1,600 mg PO TID [facility] Last Admin: 02/10/17 08:14 Dose: 1,600 mg Simethicone (Mylicon Chew Tab) 80 mg PO TID [facility] Last Admin: 02/10/17 08:19 Dose: 80 mg Sodium Chloride (Sodium Chloride 0.45%) 500 ml IV CONT [facility] Vitamin B Complex/Vit C/Folic Acid (Nephro-Ajay) 1 tab PO DAILY [facility] Last Admin: 02/10/17 08:12 Dose: 1 tab Physical Exam - Constitutional Appears: No Acute Distress - ENT Exam ENT Exam: Mucous Membranes Moist - Respiratory Exam Respiratory Exam: NORMAL BREATHING PATTERN. absent: Chest Wall Tenderness - Cardiovascular Exam Cardiovascular Exam: REGULAR RHYTHM. absent: JVD, Rubs - GI/Abdominal Exam GI & Abdominal Exam: Normal Bowel Sounds Results - Vital Signs Recent Vital Signs: Last Vital Signs Temp Pulse 107 H 02/10/17 08:14 Resp 20 02/09/17 18:20 BP 156/79 H 02/10/17 08:14 Pulse Ox - Labs Result Diagrams: 02/10/17 06:30 02/10/17 06:30 Labs: Laboratory Results - last 24 hr 02/09/17 02/10/17 02/10/17 21:02 05:24 06:30 WBC 10.7 D RBC 3.94 Hgb 11.5 L Hct 36.6 MCV 92.9 MCH 29.2 MCHC 31.4 L RDW 18.2 H Plt Count 129 L Sodium Potassium Chloride Carbon Dioxide Anion Gap BUN Creatinine Est GFR ( Amer) Est GFR (Non-Af Amer) POC Glucose (mg/dL) 134 H 154 H Random Glucose Calcium Total Bilirubin AST ALT Alkaline Phosphatase Total Protein Albumin Globulin Albumin/Globulin Ratio Vancomycin Trough 02/10/17 02/10/17 06:30 06:30 WBC RBC Hgb Hct MCV MCH MCHC RDW Plt Count Sodium 138 Potassium 5.9 H Chloride 99 Carbon Dioxide 21 L Anion Gap 24 H BUN 64 H Creatinine 7.4 H* Est GFR ( Amer) 7 Est GFR (Non-Af Amer) 6 POC Glucose (mg/dL) Random Glucose 151 H Calcium 9.4 Total Bilirubin 0.5 AST 49 H ALT 81 H Alkaline Phosphatase 207 H Total Protein 7.8 Albumin 3.8 Globulin 4.0 H Albumin/Globulin Ratio 1.0 Vancomycin Trough 9.0 Assessment & Plan (1) Chronic kidney disease requiring chronic dialysis Assessment and Plan: Patient will be receiving hemodialysis as outpatient at the dialysis center I am wonder whether she is going to be on stretcher And if so she is on stretcher please have protective services social worker notify dialysis unit immediately that she will be on stretcher they have to know that ahead of time . Also discussed with the primary physician Dr. Ellington to give the antibiotics in the hospital Assessment/Plan: End stage renal disease on hemodialysis (MWF) via permacath: no acute need for dialysis today. next HD friday as ordered. continue with Nephrovite 1 tab/day. Anemia: PRBC as needed. On MARTHA as Epogen Hyperphosphatemia: continue with current meds as renagel 1600 TID, Secondary hyperparathyroidism with Vit D Deficiency: on calcitriol Hypertension controlled Glycemic control, Dialysis consistent diet Further work up/management as per primary team. 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 Dose meds/antibiotics for ESRD status. Avoid fleets enema/magnesium based laxatives. Status: Acute (2) Diabetic retinopathy Status: Acute (3) Gallstones without obstruction of gallbladder Status: Acute (4) Infection of amputation stump of right lower extremity Status: Acute (5) 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
[2017-02-10] MEDS: Santyl Collagenase OINTMENT TOP SCH (13:24)
--- NOTE | 2017-02-10 16:32 | CP.PCM.PN ---
Subjective - Date & Time of Evaluation Date of Evaluation: 02/10/17 Time of Evaluation: 16:31 - Subjective Subjective: Patient was attempted to be seen but out at Dialysis. I will attempt to return tomorrow Objective - Vital Signs/Intake and Output Vital Signs (last 24 hours): Temp Pulse Resp BP Pulse Ox 107 H 20 156/79 H 02/10/17 08:14 02/09/17 18:20 02/10/17 08:14 - Medications Medications: Current Medications Acetaminophen (Tylenol 325mg Tab) 650 mg PO Q4 PRN PRN Reason: Fever >100.4 F Acetaminophen (Tylenol 325mg Tab) 650 mg PO Q4 PRN PRN Reason: Pain, Mild (1-3) Apixaban (Eliquis) 5 mg PO BID [facility] PRN Reason: Protocol Last Admin: 02/10/17 08:17 Dose: 5 mg Aspirin (Ecotrin) 81 mg PO DAILY [facility] Last Admin: 02/10/17 08:18 Dose: 81 mg Atorvastatin Calcium (Lipitor) 40 mg PO DAILY [facility] Last Admin: 02/10/17 08:20 Dose: 40 mg Calcitriol (Rocaltrol) 0.25 mcg PO DAILY [facility] Last Admin: 02/10/17 08:14 Dose: 0.25 mcg Calcium Carbonate (Oscal) 500 mg PO BIDWM [facility] Last Admin: 02/10/17 08:15 Dose: 500 mg Collagenase (Santyl) 1 applic TOP DAILY [facility] Last Admin: 02/10/17 13:24 Dose: Not Given Docusate Sodium (Colace) 100 mg PO BID [facility] Last Admin: 02/10/17 08:16 Dose: 100 mg Ergocalciferol (Drisdol 50,000 Intl Units Cap) 1 cap PO Q7D [facility] Fluconazole (Diflucan) 100 mg PO DAILY [facility] Last Admin: 02/10/17 08:18 Dose: 100 mg Gabapentin (Neurontin) 300 mg PO TID [facility] Last Admin: 02/10/17 13:24 Dose: Not Given Hydromorphone HCl (Dilaudid) 2 mg PO Q4 PRN PRN Reason: Pain, moderate (4-7) Last Admin: 02/10/17 06:21 Dose: 2 mg Hydromorphone HCl (Dilaudid) 1 mg IVP Q4 PRN PRN Reason: Pain, severe (8-10) Ceftazidime/Avibactam 0.94 gm/ (Sodium Chloride) 100 mls @ 50 mls/hr IVPB QOTHERDAY@1700 [facility] Insulin Detemir (Levemir) 24 units SC HS [facility] Last Admin: 02/09/17 21:16 Dose: 24 u Insulin Human Lispro (Humalog) 6 units SC ACTID [facility] Last Admin: 02/10/17 12:23 Dose: Not Given Lamotrigine (Lamictal) 25 mg PO BID [facility] Last Admin: 02/10/17 08:17 Dose: 25 mg Metoprolol Tartrate (Lopressor) 25 mg PO Q12 [facility] Last Admin: 02/10/17 08:14 Dose: 25 mg Nystatin (Nystop Topical Powder) 1 applic TOP TID [facility] Last Admin: 02/10/17 13:24 Dose: Not Given Ondansetron HCl (Zofran Inj) 4 mg IVP Q6 PRN PRN Reason: Nausea/Vomiting Pantoprazole Sodium (Protonix Ec Tab) 40 mg PO DAILY [facility] Last Admin: 02/10/17 08:17 Dose: 40 mg Repaglinide (Prandin) 2 mg PO TIDAC [facility] Last Admin: 02/10/17 13:24 Dose: Not Given Sennosides (Senokot Tab) 25.8 mg PO [facility] Last Admin: 02/09/17 21:16 Dose: 25.8 mg Sevelamer HCl (Renagel) 1,600 mg PO TID [facility] Last Admin: 02/10/17 13:24 Dose: Not Given Simethicone (Mylicon Chew Tab) 80 mg PO TID [facility] Last Admin: 02/10/17 13:23 Dose: Not Given Sodium Chloride (Sodium Chloride 0.45%) 500 ml IV CONT [facility] Vitamin B Complex/Vit C/Folic Acid (Nephro-Ajay) 1 tab PO DAILY [facility] Last Admin: 02/10/17 08:12 Dose: 1 tab - Labs Labs: 02/10/17 06:30 02/10/17 06:30
[2017-02-10] MEDS ORDERED: Epoetin Alfa 20000 UNIT/ML (RENAL DOSE) SC SCH (18:00)
[2017-02-10] MEDS ORDERED: Gentamicin 100mg/100ml NS 100 MG/100 ML BAG IVPB ONE (18:00)
[2017-02-10] MEDS: Insulin Detemir 100 Units/ml Inj SC SCH (21:51)
[2017-02-11] MEDS: Multivitamin Vitamin B Complex (Nephro-Vite) Tab PO SCH (08:47)
[2017-02-11] MEDS: Pantoprazole 40 mg EC Tab PO SCH (08:48)
[2017-02-11] MEDS: Simethicone 80 mg Chewtab PO SCH ×3 (08:53→17:42)
[2017-02-11] MEDS: Santyl Collagenase OINTMENT TOP SCH ×2 (09:00→19:00)
[2017-02-11] MEDS: Insulin Lispro (humaLOG) 100 Units/ml Inj SC SCH ×4 (09:01→17:55)
--- NOTE | 2017-02-11 10:14 | CP.PCM.PN ---
Subjective - Date & Time of Evaluation Date of Evaluation: 02/11/17 Time of Evaluation: 10:13 - Subjective Subjective: she received HD outpatient yesterday no new changes Gent. perkins pending Objective - Vital Signs/Intake and Output Vital Signs (last 24 hours): Temp Pulse Resp BP Pulse Ox 105 H 20 164/87 H 02/11/17 08:48 02/09/17 18:20 02/11/17 08:48 - Medications Medications: Current Medications Acetaminophen (Tylenol 325mg Tab) 650 mg PO Q4 PRN PRN Reason: Fever >100.4 F Acetaminophen (Tylenol 325mg Tab) 650 mg PO Q4 PRN PRN Reason: Pain, Mild (1-3) Apixaban (Eliquis) 5 mg PO BID [facility] PRN Reason: Protocol Last Admin: 02/11/17 08:48 Dose: 5 mg Aspirin (Ecotrin) 81 mg PO DAILY [facility] Last Admin: 02/11/17 08:48 Dose: 81 mg Atorvastatin Calcium (Lipitor) 40 mg PO DAILY [facility] Last Admin: 02/11/17 08:50 Dose: 40 mg Calcitriol (Rocaltrol) 0.25 mcg PO DAILY [facility] Last Admin: 02/11/17 08:49 Dose: 0.25 mcg Calcium Carbonate (Oscal) 500 mg PO BIDWM [facility] Last Admin: 02/11/17 08:48 Dose: 500 mg Collagenase (Santyl) 1 applic TOP DAILY [facility] Last Admin: 02/10/17 13:24 Dose: Not Given Docusate Sodium (Colace) 100 mg PO BID [facility] Last Admin: 02/11/17 08:48 Dose: 100 mg Ergocalciferol (Drisdol 50,000 Intl Units Cap) 1 cap PO Q7D [facility] Fluconazole (Diflucan) 100 mg PO DAILY [facility] Last Admin: 02/11/17 08:49 Dose: 100 mg Gabapentin (Neurontin) 300 mg PO TID [facility] Last Admin: 02/11/17 08:47 Dose: 300 mg Hydromorphone HCl (Dilaudid) 2 mg PO Q4 PRN PRN Reason: Pain, moderate (4-7) Last Admin: 02/10/17 23:07 Dose: 2 mg Hydromorphone HCl (Dilaudid) 1 mg IVP Q4 PRN PRN Reason: Pain, severe (8-10) Ceftazidime/Avibactam 0.94 gm/ (Sodium Chloride) 100 mls @ 50 mls/hr IVPB QOTHERDAY@1700 [facility] Last Admin: 02/10/17 21:27 Dose: 50 mls/hr Insulin Detemir (Levemir) 24 units SC HS [facility] Last Admin: 02/10/17 21:51 Dose: 24 u Insulin Human Lispro (Humalog) 6 units SC ACTID [facility] Last Admin: 02/11/17 09:01 Dose: 6 units Lamotrigine (Lamictal) 25 mg PO BID [facility] Last Admin: 02/11/17 08:47 Dose: 25 mg Metoprolol Tartrate (Lopressor) 25 mg PO Q12 [facility] Last Admin: 02/11/17 08:48 Dose: 25 mg Nystatin (Nystop Topical Powder) 1 applic TOP TID [facility] Last Admin: 02/10/17 17:08 Dose: 1 applic Ondansetron HCl (Zofran Inj) 4 mg IVP Q6 PRN PRN Reason: Nausea/Vomiting Pantoprazole Sodium (Protonix Ec Tab) 40 mg PO DAILY [facility] Last Admin: 02/11/17 08:48 Dose: 40 mg Repaglinide (Prandin) 2 mg PO TIDAC [facility] Last Admin: 02/11/17 08:47 Dose: 2 mg Sennosides (Senokot Tab) 25.8 mg PO HS [facility] Last Admin: 02/10/17 21:55 Dose: 25.8 mg Sevelamer HCl (Renagel) 1,600 mg PO TID [facility] Last Admin: 02/11/17 08:49 Dose: 1,600 mg Simethicone (Mylicon Chew Tab) 80 mg PO TID [facility] Last Admin: 02/11/17 08:53 Dose: 80 mg Sodium Chloride (Sodium Chloride 0.45%) 500 ml IV CONT [facility] Vitamin B Complex/Vit C/Folic Acid (Nephro-Ajay) 1 tab PO DAILY [facility] Last Admin: 02/11/17 08:47 Dose: 1 tab - Labs Labs: 02/10/17 06:30 02/10/17 06:30 Assessment and Plan (1) Chronic kidney disease requiring chronic dialysis Status: Acute (2) Diabetic retinopathy Status: Acute (3) Gallstones without obstruction of gallbladder Status: Acute (4) Infection of amputation stump of right lower extremity Status: Acute (5) 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
[2017-02-11] MEDS ORDERED: Sodium Chloride 0.45% 1,000 ML IV SCH (19:30)
[2017-02-11] MEDS: Insulin Detemir 100 Units/ml Inj SC SCH (21:25)
--- NOTE | 2017-02-11 21:28 | CP.PCM.PN ---
Subjective - Date & Time of Evaluation Date of Evaluation: 02/11/17 Time of Evaluation: 07:00 - Subjective Subjective: Patient went to Dr. Tara Hernandez's office via wheelchair today. She had LASER treatment of the right eye for diabetic retinopathy. She is to return next Friday, Feb 18 for treatment of the left eye. She had to wait 2 hours to be picked up afterward and is very tired. I will ask that this not happen next week and that she be accompanied by a staff person from the hospital. For hemodialysis tomorrow. Unfortunately there was a miscommunication yesterday and the patient received 20,000 IU of Procrit subcutaneously. I discontinued subsequent Procrit orders and will ask Dr. Guadarrama for his advice regarding dosing. Hopefully, the right BK wound vac will be able to be changed tomorrow morning early before patient goes to [facility] for hemodialysis. The right patella also needs looking at as Santyl treatments continue. Patient remains on 3 IV antibiotics (ceftazidime/avibactam 0.94mg QOD, vancomycin 500MG IV MWF, and gentamicin 40MG MWF). The trough levels were good: see under lab results. I only ordered antibiotics for 02/10. Due to a miscommunication it appears the patient got 100mg of gentamicin instead of 40mg. She did ge the 500mg of vancomycin. I will discuss tomorrow's dosing with Dr. Lemon. Although dietary change to controlled carbohydrates was requested, we are trying to keep the diet here as close to what her home diet will be as possible. So I left the carbohydrates alone but stopped the Nepro. Patient is already overweight, and additional calories are to be avoided. Perhaps Dr. Ambrose and the dietitian can discuss this, and I will follow their advice. We will have to get back to aggressive physical and occupational therapy in between the HD and ophthalmology appointments. I am looking forward to Dr. Daniels's evaluation and recommendations. As per Dr. Maguire's recommendation, I am now increasing the Lamictal to 50mg po q12h. It goes up to 100mg q12h on the , and the 150mg q12h on the 04 of March. Then continues at that dose x 18 months. NOTE: AT [facility] THEY PLACED A PPD ON HER LEFT FOREARM. THIS HAS BEEN IRRITATING, AND SHE HAS BEEN RUBBING IT. SHOULD THERE BE INDURATION AT TOMORROW 'S READING, THIS MAY NOT REPRESENT A POSITIVE TUBERCULIN REACTION, BUT RATHER AN ALLERGIC REACTION. BEFORE ANY CONCULSIONS ARE REACHED A SEEMINGLY POSITIVE SKIN TEST SHOULD BE CONFIRMED BY A QUANTIFERON BLOOD TEST. I WILL DISCUSS THIS WITH DR. BAPTISTE. Objective - Vital Signs/Intake and Output Vital Signs (last 24 hours): Temp Pulse Resp BP Pulse Ox 96.6 F L 107 H 20 130/74 98 02/11/17 20:01 02/11/17 20:01 02/11/17 20:01 02/11/17 20:01 02/11/17 20:01 - Medications Medications: Current Medications Acetaminophen (Tylenol 325mg Tab) 650 mg PO Q4 PRN PRN Reason: Fever >100.4 F Acetaminophen (Tylenol 325mg Tab) 650 mg PO Q4 PRN PRN Reason: Pain, Mild (1-3) Apixaban (Eliquis) 5 mg PO BID [facility] PRN Reason: Protocol Last Admin: 02/11/17 17:39 Dose: 5 mg Aspirin (Ecotrin) 81 mg PO DAILY [facility] Last Admin: 02/11/17 08:48 Dose: 81 mg Atorvastatin Calcium (Lipitor) 40 mg PO DAILY [facility] Last Admin: 02/11/17 08:50 Dose: 40 mg Calcitriol (Rocaltrol) 0.25 mcg PO DAILY [facility] Last Admin: 02/11/17 08:49 Dose: 0.25 mcg Calcium Carbonate (Oscal) 500 mg PO BIDWM [facility] Last Admin: 02/11/17 17:38 Dose: 500 mg Collagenase (Santyl) 1 applic TOP DAILY [facility] Last Admin: 02/11/17 19:00 Dose: 1 applic Docusate Sodium (Colace) 100 mg PO BID [facility] Last Admin: 02/11/17 17:42 Dose: 100 mg Ergocalciferol (Drisdol 50,000 Intl Units Cap) 1 cap PO Q7D [facility] Fluconazole (Diflucan) 100 mg PO DAILY [facility] Last Admin: 02/11/17 08:49 Dose: 100 mg Gabapentin (Neurontin) 300 mg PO TID [facility] Last Admin: 02/11/17 17:39 Dose: 300 mg Hydromorphone HCl (Dilaudid) 2 mg PO Q4 PRN PRN Reason: Pain, moderate (4-7) Last Admin: 02/11/17 17:17 Dose: 2 mg Hydromorphone HCl (Dilaudid) 1 mg IVP Q4 PRN PRN Reason: Pain, severe (8-10) Ceftazidime/Avibactam 0.94 gm/ (Sodium Chloride) 100 mls @ 50 mls/hr IVPB QOTHERDAY@1700 [facility] Last Admin: 02/10/17 21:27 Dose: 50 mls/hr Sodium Chloride (Sodium Chloride 0.45%) 1,000 mls @ 10 mls/hr IV .Q24H [facility] Stop: 02/12/17 19:23 Insulin Detemir (Levemir) 24 units SC HS [facility] Last Admin: 02/10/17 21:51 Dose: 24 u Insulin Human Lispro (Humalog) 6 units SC ACTID [facility] Last Admin: 02/11/17 17:55 Dose: Not Given Lamotrigine (Lamictal) 25 mg PO BID [facility] Last Admin: 02/11/17 17:43 Dose: 25 mg Metoprolol Tartrate (Lopressor) 25 mg PO Q12 [facility] Last Admin: 02/11/17 08:48 Dose: 25 mg Ondansetron HCl (Zofran Inj) 4 mg IVP Q6 PRN PRN Reason: Nausea/Vomiting Pantoprazole Sodium (Protonix Ec Tab) 40 mg PO DAILY [facility] Last Admin: 02/11/17 08:48 Dose: 40 mg Repaglinide (Prandin) 2 mg PO TIDAC [facility] Last Admin: 02/11/17 17:40 Dose: 2 mg Sennosides (Senokot Tab) 25.8 mg PO [facility] Last Admin: 02/10/17 21:55 Dose: 25.8 mg Sevelamer HCl (Renagel) 1,600 mg PO TID [facility] Last Admin: 02/11/17 17:40 Dose: 1,600 mg Simethicone (Mylicon Chew Tab) 80 mg PO TID [facility] Last Admin: 02/11/17 17:42 Dose: 80 mg Sodium Chloride (Sodium Chloride 0.45%) 500 ml IV CONT [facility] Vitamin B Complex/Vit C/Folic Acid (Nephro-Ajay) 1 tab PO DAILY [facility] Last Admin: 02/11/17 08:47 Dose: 1 tab - Labs Labs: 1 Most Recent Lab Values WBC 10.7 K/uL (4.8-10.8) D 02/10/17 06:30 RBC 3.94 Mil/uL (3.80-5.20) 02/10/17 06:30 Hgb 11.5 g/dL (12.0-16.0) L 02/10/17 06:30 Hct 36.6 % (34.0-47.0) 02/10/17 06:30 MCV 92.9 fl (81.0-99.0) 02/10/17 06:30 MCH 29.2 pg (27.0-31.0) 02/10/17 06:30 MCHC 31.4 g/dL (33.0-37.0) L 02/10/17 06:30 RDW 18.2 % (11.5-14.5) H 02/10/17 06:30 Plt Count 129 K/uL (130-400) L 02/10/17 06:30 Sodium 138 mmol/l (132-148) 02/10/17 06:30 Potassium 5.9 MMOL/L (3.6-5.0) H 02/10/17 06:30 Chloride 99 mmol/L (98-107) 02/10/17 06:30 Carbon Dioxide 21 mmol/L (22-30) L 02/10/17 06:30 Anion Gap 24 (10-20) H 02/10/17 06:30 BUN 64 mg/dl (7-17) H 02/10/17 06:30 Creatinine 7.4 mg/dL (0.7-1.2) H* 02/10/17 06:30 Est GFR ( Amer) 7 02/10/17 06:30 Est GFR (Non-Af Amer) 6 02/10/17 06:30 POC Glucose (mg/dL) 120 mg/dL (65-110) H 02/11/17 20:18 Random Glucose 151 mg/dL (65-105) H 02/10/17 06:30 Calcium 9.4 mg/dL (8.4-10.2) 02/10/17 06:30 Total Bilirubin 0.5 mg/dl (0.2-1.3) 02/10/17 06:30 AST 49 U/L (14-36) H 02/10/17 06:30 ALT 81 U/L (9-52) H 02/10/17 06:30 Alkaline Phosphatase 207 U/L (38-126) H 02/10/17 06:30 Total Protein 7.8 G/DL (6.3-8.2) 02/10/17 06:30 Albumin 3.8 g/dL (3.5-5.0) 02/10/17 06:30 Globulin 4.0 gm/dL (2.2-3.9) H 02/10/17 06:30 Albumin/Globulin Ratio 1.0 (1.0-2.1) 02/10/17 06:30 Gentamicin Trough 0.9 ug/mL (0.0-0.9) 02/10/17 06:30 Vancomycin Trough 9.0 ug/mL (5.0-10.0) 02/10/17 06:30 - Constitutional Appears: No Acute Distress - Head Exam Head Exam: NORMAL INSPECTION - Eye Exam Additional comments: R eye appears irritated. - ENT Exam ENT Exam: Mucous Membranes Moist - Neck Exam Neck Exam: Normal Inspection Additional comments: Right subclavian Permacath intact. - Respiratory Exam Respiratory Exam: Clear to Ausculation Bilateral, NORMAL BREATHING PATTERN - Cardiovascular Exam Cardiovascular Exam: REGULAR RHYTHM, +S1, +S2 - GI/Abdominal Exam GI & Abdominal Exam: Soft - Extremities Exam Additional comments: RLE dressings and wound vac in place. All other extremities are warm and with no lesions. L femoral vein PICC line intact. - Back Exam Back Exam: NORMAL INSPECTION - Neurological Exam Neurological Exam: Alert, CN II-XII Intact, Oriented x3 - Psychiatric Exam Psychiatric exam: Normal Affect, Normal Mood - Skin Skin Exam: Dry, Normal Color, Warm Assessment and Plan (1) Status post below knee amputation of right lower extremity Status: Acute (2) Infection of amputation stump of right lower extremity Status: Acute (3) ESRD (end stage renal disease) on dialysis Status: Chronic (4) DM type 2 (diabetes mellitus, type 2) Status: Chronic (5) Elevated liver enzymes Status: Acute (6) Seizure disorder Status: Acute (7) Coagulopathy Status: Chronic (8) 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
[2017-02-12] MEDS: Insulin Lispro (humaLOG) 100 Units/ml Inj SC SCH ×3 (08:20→17:39)
[2017-02-12] MEDS: Multivitamin Vitamin B Complex (Nephro-Vite) Tab PO SCH (08:25)
[2017-02-12] MEDS: Pantoprazole 40 mg EC Tab PO SCH (08:25)
[2017-02-12] MEDS: Simethicone 80 mg Chewtab PO SCH ×3 (09:43→17:30)
[2017-02-12] MEDS: Santyl Collagenase OINTMENT TOP SCH (12:08)
--- NOTE | 2017-02-12 13:13 | CP.PCM.PN ---
Subjective - Date & Time of Evaluation Date of Evaluation: 02/12/17 Time of Evaluation: 09:00 - Subjective Subjective: Patient is stable and to go for hemodialysis today. I discussed antibiotics with Dr. Lemon. He advised gentamicin 60mg q MWF after hemodialysis, and we will continue vancomycin 500mg q MWF. She also continues on Ceftazidime/avivactam 0.[address] Guadarrama is managing epogen dosing. Dr. Ambrose is managing the diabetes. Lamotrtigine increased to 50mg po bid. Objective - Vital Signs/Intake and Output Vital Signs (last 24 hours): Temp Pulse Resp BP Pulse Ox 97 F L 102 H 20 153/84 H 98 02/12/17 08:15 02/12/17 08:15 02/12/17 08:15 02/12/17 08:15 02/12/17 08:15 - Medications Medications: Current Medications Acetaminophen (Tylenol 325mg Tab) 650 mg PO Q4 PRN PRN Reason: Fever >100.4 F Acetaminophen (Tylenol 325mg Tab) 650 mg PO Q4 PRN PRN Reason: Pain, Mild (1-3) Apixaban (Eliquis) 5 mg PO BID [facility] PRN Reason: Protocol Last Admin: 02/12/17 08:24 Dose: 5 mg Aspirin (Ecotrin) 81 mg PO DAILY [facility] Last Admin: 02/12/17 08:25 Dose: 81 mg Atorvastatin Calcium (Lipitor) 40 mg PO DAILY [facility] Last Admin: 02/12/17 08:26 Dose: 40 mg Calcitriol (Rocaltrol) 0.25 mcg PO DAILY [facility] Last Admin: 02/12/17 08:24 Dose: 0.25 mcg Calcium Carbonate (Oscal) 500 mg PO BIDWM [facility] Last Admin: 02/12/17 08:24 Dose: 500 mg Collagenase (Santyl) 1 applic TOP DAILY [facility] Last Admin: 02/12/17 12:08 Dose: Not Given Docusate Sodium (Colace) 100 mg PO BID [facility] Last Admin: 02/12/17 08:22 Dose: 100 mg Ergocalciferol (Drisdol 50,000 Intl Units Cap) 1 cap PO Q7D [facility] Fluconazole (Diflucan) 100 mg PO DAILY [facility] Last Admin: 02/12/17 08:25 Dose: 100 mg Gabapentin (Neurontin) 300 mg PO TID [facility] Last Admin: 02/12/17 13:04 Dose: Not Given Hydromorphone HCl (Dilaudid) 2 mg PO Q4 PRN PRN Reason: Pain, moderate (4-7) Last Admin: 02/12/17 08:23 Dose: 2 mg Hydromorphone HCl (Dilaudid) 1 mg IVP Q4 PRN PRN Reason: Pain, severe (8-10) Ceftazidime/Avibactam 0.94 gm/ (Sodium Chloride) 100 mls @ 50 mls/hr IVPB QOTHERDAY@1700 [facility] Last Admin: 02/10/17 21:27 Dose: 50 mls/hr Gentamicin Sulfate/Sodium Chloride (Gentamicin 60mg/50ml Ns) 60 mg in 50 mls @ 50 mls/hr IVPB [facility] Sodium Chloride (Sodium Chloride 0.45%) 1,000 mls @ 10 mls/hr IV .Q24H [facility] Vancomycin HCl 500 mg/ Sodium (Chloride) 250 mls @ 250 mls/hr IVPB [facility] Insulin Detemir (Levemir) 20 units SC [facility] Insulin Human Lispro (Humalog) 4 units SC ACTID [facility] Lamotrigine (Lamictal) 25 mg PO BID [facility] Last Admin: 02/12/17 08:24 Dose: 25 mg Metoprolol Tartrate (Lopressor) 25 mg PO Q12 [facility] Last Admin: 02/12/17 09:43 Dose: Not Given Ondansetron HCl (Zofran Inj) 4 mg IVP Q6 PRN PRN Reason: Nausea/Vomiting Pantoprazole Sodium (Protonix Ec Tab) 40 mg PO DAILY [facility] Last Admin: 02/12/17 08:25 Dose: 40 mg Repaglinide (Prandin) 2 mg PO TIDAC [facility] Last Admin: 02/12/17 12:08 Dose: Not Given Sennosides (Senokot Tab) 25.8 mg PO [facility] Last Admin: 02/11/17 21:25 Dose: 25.8 mg Sevelamer HCl (Renagel) 1,600 mg PO TID [facility] Last Admin: 02/12/17 13:04 Dose: Not Given Simethicone (Mylicon Chew Tab) 80 mg PO TID [facility] Last Admin: 02/12/17 13:03 Dose: Not Given Sodium Chloride (Sodium Chloride 0.45%) 500 ml IV CONT [facility] Vitamin B Complex/Vit C/Folic Acid (Nephro-Ajay) 1 tab PO DAILY [facility] Last Admin: 02/12/17 08:25 Dose: 1 tab - Labs Labs: 02/10/17 06:30 02/10/17 06:30 Assessment and Plan (1) Status post below knee amputation of right lower extremity Status: Acute (2) Infection of amputation stump of right lower extremity Status: Acute (3) ESRD (end stage renal disease) on dialysis Status: Chronic (4) DM type 2 (diabetes mellitus, type 2) Status: Chronic (5) Elevated liver enzymes Status: Acute (6) Seizure disorder Status: Acute (7) Coagulopathy Status: Chronic (8) 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
--- NOTE | 2017-02-12 16:15 | PN ---
ENDO FOLLOWUP NOTE LOCATION: Room #706. SUBJECTIVE: This is a 46-year-old female with recent uncontrolled type 2 insulin requiring diabetes, now being followed closely for metabolic management. She has been transferred to PCU for ongoing physical therapy and also for evaluation and management of severe diabetic retinopathy as noted thereof. She has also ongoing IV antibiotics for management of underlying osteomyelitis in the right below-knee amputation stump area as noted. Her glycemic levels have been on the low side of normal overnight as noted and glucose levels have ranged from 62 to 86 and 120 mg/dL. So, at this time, we will modify and lower the basal and bolus insulin regimen as ordered with Humalog given as 4 units subcu t.i.d. before meals as given. We will also lower the basal insulin with Levemir to be given as 20 units subcu at bedtime daily as given. We will titrate incremental as indicated to optimize metabolic control. We will follow and advise accordingly. Irene Ambrose MD
[2017-02-12] MEDS: Sodium Chloride 0.45% 1,000 ML IV SCH (17:39)
[2017-02-12] MEDS: Gentamicin 60mg/50ml NS 60 MG/50 ML BAG IVPB SCH (19:48)
[2017-02-12] MEDS ORDERED: Insulin Detemir 100 Units/ml Inj SC SCH (22:00)
[2017-02-13] MEDS: Insulin Lispro (humaLOG) 100 Units/ml Inj SC SCH ×3 (08:11→17:46)
[2017-02-13] MEDS: Simethicone 80 mg Chewtab PO SCH ×3 (08:22→17:48)
[2017-02-13] MEDS: Pantoprazole 40 mg EC Tab PO SCH (08:23)
[2017-02-13] MEDS: Multivitamin Vitamin B Complex (Nephro-Vite) Tab PO SCH (08:23)
[2017-02-13] MEDS: Santyl Collagenase OINTMENT TOP SCH (08:25)
[2017-02-13] MEDS: Sodium Chloride 0.45% 1,000 ML IV SCH (12:29)
--- NOTE | 2017-02-13 15:05 | PN ---
DATE: LOCATION: Room #706. SUBJECTIVE: This is a 46-year-old female with recent uncontrolled type 2 insulin-requiring diabetes, now being followed closely for metabolic management. Her glycemic levels are fluctuating, but much improved at this time and the latest glucose levels have ranged from 71 to 80 and 119 and 132 mg/dL. So, at this time, we will modify once again and lower her basal and bolus insulin drug combination with Levemir to be given as 14 units subcu at bedtime daily to start tonight. We will also lower the Humalog to 4 units subcu t.i.d. before meals to start at lunchtime today as ordered. We will titrate incremental as indicated to optimize metabolic control. We will follow and advise accordingly. Irene Ambrose MD
--- NOTE | 2017-02-13 15:40 | CP.PCM.PN ---
Subjective - Date & Time of Evaluation Date of Evaluation: 02/13/17 Time of Evaluation: 15:37 - Subjective Subjective: Patient had wound vac changed yesterday. Here is copy of Nurse Jessica Ocasio's note: Patient in bed awaiting transport to dialysis. Right stump julian and dressing removed. Stump wound 1.5 cm long x 8cm wide. Wound base 100% granulation tissue. Cleansed with NS and wound vac reapplied vac at 125 mm Hg. Scant serous drainage. Right knee dressing removed and wound cleansed with NS. Wound improving. Epithealization around perimeter and diffuse slough over base. Santyl applied and DSD. Julian wrap applied to right stump. Tp dialysis with ambulance. Pt complains of flatulence, blames hospital food, but it could be an antibiotic effect. No diarrhea, large brown stool yesterday with no odor. She will continue on simethicone. Glucoses have been running low. She is not given food at dialysis center. We will send her with a sandwich and a beverage tomorrow. Nurse to check accuchecks more frequently as seems to be indicated. Dr. Ambrose held am insulin. Patient continues on her 3 IV and 1 po antibiotic for right leg infection. No new problems otherwise. Making good progress in physical therapy and is almost ready for acute rehab. Objective - Vital Signs/Intake and Output Vital Signs (last 24 hours): Temp Pulse Resp BP Pulse Ox 97.5 F L 101 H 20 156/65 H 98 02/13/17 08:03 02/13/17 08:23 02/13/17 08:03 02/13/17 08:23 02/13/17 08:03 - Medications Medications: Current Medications Acetaminophen (Tylenol 325mg Tab) 650 mg PO Q4 PRN PRN Reason: Fever >100.4 F Acetaminophen (Tylenol 325mg Tab) 650 mg PO Q4 PRN PRN Reason: Pain, Mild (1-3) Apixaban (Eliquis) 5 mg PO BID [facility] PRN Reason: Protocol Last Admin: 02/13/17 08:23 Dose: 5 mg Aspirin (Ecotrin) 81 mg PO DAILY [facility] Last Admin: 02/13/17 08:22 Dose: 81 mg Atorvastatin Calcium (Lipitor) 40 mg PO DAILY [facility] Last Admin: 02/13/17 08:24 Dose: 40 mg Calcitriol (Rocaltrol) 0.25 mcg PO DAILY [facility] Last Admin: 02/13/17 08:22 Dose: 0.25 mcg Calcium Carbonate (Oscal) 500 mg PO BIDWM [facility] Last Admin: 02/13/17 08:22 Dose: 500 mg Collagenase (Santyl) 1 applic TOP DAILY [facility] Last Admin: 02/13/17 08:25 Dose: 1 applic Docusate Sodium (Colace) 100 mg PO BID [facility] Last Admin: 02/13/17 08:24 Dose: 100 mg Ergocalciferol (Drisdol 50,000 Intl Units Cap) 1 cap PO Q7D [facility] Fluconazole (Diflucan) 100 mg PO DAILY [facility] Last Admin: 02/13/17 08:24 Dose: 100 mg Gabapentin (Neurontin) 300 mg PO TID [facility] Last Admin: 02/13/17 13:03 Dose: 300 mg Hydromorphone HCl (Dilaudid) 2 mg PO Q4 PRN PRN Reason: Pain, moderate (4-7) Last Admin: 02/13/17 15:06 Dose: 2 mg Hydromorphone HCl (Dilaudid) 1 mg IVP Q4 PRN PRN Reason: Pain, severe (8-10) Ceftazidime/Avibactam 0.94 gm/ (Sodium Chloride) 100 mls @ 50 mls/hr IVPB QOTHERDAY@1700 [facility] Last Admin: 02/12/17 17:29 Dose: 50 mls/hr Gentamicin Sulfate/Sodium Chloride (Gentamicin 60mg/50ml Ns) 60 mg in 50 mls @ 50 mls/hr IVPB [facility] Last Admin: 02/12/17 19:48 Dose: 50 mls/hr Sodium Chloride (Sodium Chloride 0.45%) 1,000 mls @ 10 mls/hr IV .Q24H [facility] Last Admin: 02/13/17 12:29 Dose: 10 mls/hr Vancomycin HCl 500 mg/ Sodium (Chloride) 100 mls @ 100 mls/hr IVPB [facility] Last Admin: 02/12/17 18:41 Dose: 100 mls/hr Insulin Detemir (Levemir) 14 units SC HS [facility] Insulin Human Lispro (Humalog) 4 units SC ACTID [facility] Last Admin: 02/13/17 12:28 Dose: 4 u Lamotrigine (Lamictal) 50 mg PO Q12 [facility] Last Admin: 02/13/17 08:22 Dose: 50 mg Metoprolol Tartrate (Lopressor) 25 mg PO Q12 [facility] Last Admin: 02/13/17 08:23 Dose: 25 mg Ondansetron HCl (Zofran Inj) 4 mg IVP Q6 PRN PRN Reason: Nausea/Vomiting Pantoprazole Sodium (Protonix Ec Tab) 40 mg PO DAILY [facility] Last Admin: 02/13/17 08:23 Dose: 40 mg Repaglinide (Prandin) 2 mg PO TIDAC [facility] Last Admin: 02/13/17 12:27 Dose: 2 mg Sennosides (Senokot Tab) 25.8 mg PO HS [facility] Last Admin: 02/12/17 21:05 Dose: 25.8 mg Sevelamer HCl (Renagel) 1,600 mg PO TID [facility] Last Admin: 02/13/17 12:28 Dose: 1,600 mg Simethicone (Mylicon Chew Tab) 80 mg PO TID [facility] Last Admin: 02/13/17 12:32 Dose: 80 mg Sodium Chloride (Sodium Chloride 0.45%) 500 ml IV CONT [facility] Vitamin B Complex/Vit C/Folic Acid (Nephro-Ajay) 1 tab PO DAILY [facility] Last Admin: 02/13/17 08:23 Dose: 1 tab - Labs Labs: 02/10/17 06:30 02/10/17 06:30 - Constitutional Appears: No Acute Distress - Head Exam Head Exam: NORMAL INSPECTION - Eye Exam Additional comments: Still sl irritation right ext eye. - Neck Exam Neck Exam: Normal Inspection - Respiratory Exam Respiratory Exam: Clear to Ausculation Bilateral, NORMAL BREATHING PATTERN - Cardiovascular Exam Cardiovascular Exam: REGULAR RHYTHM, +S1, +S2 - GI/Abdominal Exam GI & Abdominal Exam: Soft, Normal Bowel Sounds - Extremities Exam Extremities Exam: Normal Inspection Additional comments: Dressings intact RLE. See subjective for details of wounds. - Back Exam Back Exam: NORMAL INSPECTION - Neurological Exam Neurological Exam: Alert, Oriented x3 - Psychiatric Exam Psychiatric exam: Normal Affect, Normal Mood - Skin Skin Exam: Dry, Intact, Normal Color, Warm Assessment and Plan (1) Status post below knee amputation of right lower extremity Status: Acute (2) Infection of amputation stump of right lower extremity Status: Acute (3) ESRD (end stage renal disease) on dialysis Status: Chronic (4) DM type 2 (diabetes mellitus, type 2) Status: Chronic (5) Elevated liver enzymes Status: Acute (6) Seizure disorder Status: Acute (7) Coagulopathy Status: Chronic (8) 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 WILL HOLD ON BLOOD WORK UNTIL Friday02/17/17
[2017-02-13] MEDS ORDERED: Insulin Detemir 100 Units/ml Inj SC SCH (22:00)
[2017-02-14] MEDS: Ergocalciferol 50,000 Intl Units Cap PO SCH (08:34)
[2017-02-14] MEDS: Pantoprazole 40 mg EC Tab PO SCH (08:37)
[2017-02-14] MEDS: Multivitamin Vitamin B Complex (Nephro-Vite) Tab PO SCH (08:38)
[2017-02-14] MEDS: Santyl Collagenase OINTMENT TOP SCH (08:39)
[2017-02-14] MEDS: Simethicone 80 mg Chewtab PO SCH ×4 (08:43→22:06)
[2017-02-14] MEDS: Gentamicin 60mg/50ml NS 60 MG/50 ML BAG IVPB SCH (08:43)
--- NOTE | 2017-02-14 15:18 | CP.PCM.PN ---
Subjective - Date & Time of Evaluation Date of Evaluation: 02/14/17 Time of Evaluation: 15:15 - Subjective Subjective: Patient is away for hemodialysis. Will visit tomorrow. Glucoses have been too low. I spoke with Dr. Ambrose and reassured her that the blood and wound cultures have been negative. She discontinued the short acting insulin and decreased the Levemir to 8 units subcut qhs. Otherwise no changes noted. Objective - Vital Signs/Intake and Output Vital Signs (last 24 hours): Temp Pulse Resp BP Pulse Ox 96.1 F L 100 H 20 145/68 96 02/14/17 09:00 02/14/17 09:00 02/14/17 09:00 02/14/17 09:00 02/14/17 09:00 - Medications Medications: Current Medications Acetaminophen (Tylenol 325mg Tab) 650 mg PO Q4 PRN PRN Reason: Fever >100.4 F Acetaminophen (Tylenol 325mg Tab) 650 mg PO Q4 PRN PRN Reason: Pain, Mild (1-3) Apixaban (Eliquis) 5 mg PO BID [facility] PRN Reason: Protocol Last Admin: 02/14/17 08:36 Dose: 5 mg Aspirin (Ecotrin) 81 mg PO DAILY [facility] Last Admin: 02/14/17 08:36 Dose: 81 mg Atorvastatin Calcium (Lipitor) 40 mg PO DAILY [facility] Last Admin: 02/14/17 08:34 Dose: 40 mg Calcitriol (Rocaltrol) 0.25 mcg PO DAILY [facility] Last Admin: 02/14/17 08:36 Dose: 0.25 mcg Calcium Carbonate (Oscal) 500 mg PO BIDWM [facility] Last Admin: 02/14/17 08:36 Dose: 500 mg Collagenase (Santyl) 1 applic TOP DAILY [facility] Last Admin: 02/14/17 08:39 Dose: 1 applic Docusate Sodium (Colace) 100 mg PO BID [facility] Last Admin: 02/14/17 08:35 Dose: 100 mg Ergocalciferol (Drisdol 50,000 Intl Units Cap) 1 cap PO Q7D [facility] Last Admin: 02/14/17 08:34 Dose: 1 cap Fluconazole (Diflucan) 100 mg PO DAILY [facility] Last Admin: 02/14/17 08:34 Dose: 100 mg Gabapentin (Neurontin) 300 mg PO TID [facility] Last Admin: 02/14/17 08:36 Dose: 300 mg Hydromorphone HCl (Dilaudid) 2 mg PO Q4 PRN PRN Reason: Pain, moderate (4-7) Last Admin: 02/13/17 22:46 Dose: 2 mg Hydromorphone HCl (Dilaudid) 1 mg IVP Q4 PRN PRN Reason: Pain, severe (8-10) Ceftazidime/Avibactam 0.94 gm/ (Sodium Chloride) 100 mls @ 50 mls/hr IVPB QOTHERDAY@1700 [facility] Last Admin: 02/12/17 17:29 Dose: 50 mls/hr Gentamicin Sulfate/Sodium Chloride (Gentamicin 60mg/50ml Ns) 60 mg in 50 mls @ 50 mls/hr IVPB [facility] [place] Last Admin: 02/14/17 08:43 Dose: 50 mls/hr Sodium Chloride (Sodium Chloride 0.45%) 1,000 mls @ 10 mls/hr IV .Q24H [facility] Last Admin: 02/13/17 12:29 Dose: 10 mls/hr Vancomycin HCl 500 mg/ Sodium (Chloride) 100 mls @ 100 mls/hr IVPB [facility] [place] Last Admin: 02/12/17 18:41 Dose: 100 mls/hr Insulin Detemir (Levemir) 8 units SC [facility] Lamotrigine (Lamictal) 50 mg PO Q12 [facility] Last Admin: 02/14/17 08:34 Dose: 50 mg Metoprolol Tartrate (Lopressor) 25 mg PO Q12 [facility] Last Admin: 02/14/17 08:37 Dose: 25 mg Ondansetron HCl (Zofran Inj) 4 mg IVP Q6 PRN PRN Reason: Nausea/Vomiting Pantoprazole Sodium (Protonix Ec Tab) 40 mg PO DAILY [facility] Last Admin: 02/14/17 08:37 Dose: 40 mg Repaglinide (Prandin) 2 mg PO TIDAC [facility] Last Admin: 02/14/17 08:36 Dose: 2 mg Sennosides (Senokot Tab) 25.8 mg PO [facility] Last Admin: 02/13/17 21:08 Dose: 25.8 mg Sevelamer HCl (Renagel) 1,600 mg PO TID [facility] Last Admin: 02/14/17 08:37 Dose: 1,600 mg Simethicone (Mylicon Chew Tab) 80 mg PO TID [facility] Last Admin: 02/14/17 08:43 Dose: 80 mg Sodium Chloride (Sodium Chloride 0.45%) 500 ml IV CONT [facility] Vitamin B Complex/Vit C/Folic Acid (Nephro-Ajay) 1 tab PO DAILY [facility] Last Admin: 02/14/17 08:38 Dose: 1 tab - Labs Labs: 02/10/17 06:30 02/10/17 06:30 Assessment and Plan (1) Status post below knee amputation of right lower extremity Status: Acute (2) Infection of amputation stump of right lower extremity Status: Acute (3) ESRD (end stage renal disease) on dialysis Status: Chronic (4) DM type 2 (diabetes mellitus, type 2) Assessment & Plan: SEE SUBJECTIVE. 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
--- NOTE | 2017-02-14 16:40 | PN ---
ENDO FOLLOWUP NOTE LOCATION: Room 706, [facility]. SUBJECTIVE: This is a 46-year-old female with recent uncontrolled type 2 insulin-requiring diabetes developing extremes of glycemic fluctuations over the last 24 hours and is now being followed closely for metabolic management. Her glucose levels last night were in the low side of normal, ranging from 71 to 75 and 119 mg/dL. Her latest glucose today and overnight showed glucose levels ranging from 75 to 91 and 68 mg/dL. She has ongoing IV antibiotic management for severe right lower extremity osteomyelitis with a previous right below-knee amputation undertaken thereof. So, at this time, we will actually discontinue all the Humalog given as 4 units t.i.d. before meals as ordered. We will lower the basal insulin given as Levemir to 8 units subcu at bedtime daily to start tonight. We will continue the Prandin given as 2 mg p.o. t.i.d. before meals as ordered. We will obtain serial chemistries and supplement accordingly as needed. We will follow. Irene Ambrose MD
[2017-02-14] MEDS: Sodium Chloride 0.45% 1,000 ML IV SCH (17:06)
[2017-02-14] MEDS ORDERED: Insulin Detemir 100 Units/ml Inj SC SCH (22:00)
[2017-02-15] MEDS: Pantoprazole 40 mg EC Tab PO SCH (09:22)
[2017-02-15] MEDS: Simethicone 80 mg Chewtab PO SCH ×3 (09:25→16:41)
[2017-02-15] MEDS: Multivitamin Vitamin B Complex (Nephro-Vite) Tab PO SCH (09:25)
--- NOTE | 2017-02-15 10:01 | CP.PCM.PN ---
Subjective - Date & Time of Evaluation Date of Evaluation: 02/15/17 Time of Evaluation: 09:54 - Subjective Subjective: Patient has not had a bowel movement in 3 days despite being on Senna and Colace. She has much flatulence. She has decreased taking Dilaudid. On rectal exam there is some soft, brown stool, but no impaction. Will give Fleets enema once. If not successful we may need to add another age No fevers, cough, or dyspnea. PPD placed at [facility] last week is still sl indurated and just about 10mm. She had itching after it was placed and was scratching the site considerably. I believe this is an allergic reaction and not a true tuberculin test. As per discussion with Dr. Flores I will order a Quantiferon test to be sure. To continue with PT and IV antibiotics and all usual care. Blood sugars 83 to 122 on current regimen. Will order labs for am of Saturday 02/17 before pt goes for HD> Objective - Vital Signs/Intake and Output Vital Signs (last 24 hours): Temp Pulse Resp BP Pulse Ox 97 F L 101 H 20 142/91 H 97 02/15/17 08:25 02/15/17 09:23 02/15/17 08:25 02/15/17 09:23 02/15/17 08:25 - Medications Medications: Current Medications Acetaminophen (Tylenol 325mg Tab) 650 mg PO Q4 PRN PRN Reason: Fever >100.4 F Acetaminophen (Tylenol 325mg Tab) 650 mg PO Q4 PRN PRN Reason: Pain, Mild (1-3) Apixaban (Eliquis) 5 mg PO BID [facility] PRN Reason: Protocol Last Admin: 02/15/17 09:23 Dose: 5 mg Aspirin (Ecotrin) 81 mg PO DAILY [facility] Last Admin: 02/15/17 09:23 Dose: 81 mg Atorvastatin Calcium (Lipitor) 40 mg PO DAILY [facility] Last Admin: 02/15/17 09:23 Dose: 40 mg Calcitriol (Rocaltrol) 0.25 mcg PO DAILY [facility] Last Admin: 02/15/17 09:24 Dose: 0.25 mcg Calcium Carbonate (Oscal) 500 mg PO BIDWM [facility] Last Admin: 02/15/17 09:23 Dose: 500 mg Collagenase (Santyl) 1 applic TOP DAILY [facility] Last Admin: 02/14/17 08:39 Dose: 1 applic Docusate Sodium (Colace) 100 mg PO BID [facility] Last Admin: 02/15/17 09:24 Dose: 100 mg Ergocalciferol (Drisdol 50,000 Intl Units Cap) 1 cap PO Q7D [facility] Last Admin: 02/14/17 08:34 Dose: 1 cap Fluconazole (Diflucan) 100 mg PO DAILY [facility] Last Admin: 02/15/17 09:25 Dose: 100 mg Gabapentin (Neurontin) 300 mg PO TID [facility] Last Admin: 02/15/17 09:23 Dose: 300 mg Hydromorphone HCl (Dilaudid) 2 mg PO Q4 PRN PRN Reason: Pain, moderate (4-7) Last Admin: 02/15/17 07:08 Dose: 2 mg Hydromorphone HCl (Dilaudid) 1 mg IVP Q4 PRN PRN Reason: Pain, severe (8-10) Ceftazidime/Avibactam 0.94 gm/ (Sodium Chloride) 100 mls @ 50 mls/hr IVPB QOTHERDAY@1700 [facility] Last Admin: 02/14/17 18:28 Dose: 50 mls/hr Gentamicin Sulfate/Sodium Chloride (Gentamicin 60mg/50ml Ns) 60 mg in 50 mls @ 50 mls/hr IVPB MWF [facility] Last Admin: 02/14/17 08:43 Dose: 50 mls/hr Sodium Chloride (Sodium Chloride 0.45%) 1,000 mls @ 10 mls/hr IV .Q24H [facility] Last Admin: 02/14/17 17:06 Dose: 10 mls/hr Vancomycin HCl 500 mg/ Sodium (Chloride) 100 mls @ 100 mls/hr IVPB MWF@1700 [facility] Last Admin: 02/14/17 20:52 Dose: 100 mls/hr Insulin Detemir (Levemir) 8 units SC HS [facility] Last Admin: 02/14/17 21:48 Dose: 8 units Lamotrigine (Lamictal) 50 mg PO Q12 [facility] Last Admin: 02/15/17 09:24 Dose: 50 mg Metoprolol Tartrate (Lopressor) 25 mg PO Q12 [facility] Last Admin: 02/15/17 09:23 Dose: 25 mg Ondansetron HCl (Zofran Inj) 4 mg IVP Q6 PRN PRN Reason: Nausea/Vomiting Pantoprazole Sodium (Protonix Ec Tab) 40 mg PO DAILY [facility] Last Admin: 02/15/17 09:22 Dose: 40 mg Repaglinide (Prandin) 2 mg PO TIDAC [facility] Last Admin: 02/15/17 07:02 Dose: 2 mg Sennosides (Senokot Tab) 25.8 mg PO HS [facility] Last Admin: 02/14/17 21:54 Dose: 25.8 mg Sevelamer HCl (Renagel) 1,600 mg PO TID [facility] Last Admin: 02/15/17 09:22 Dose: 1,600 mg Simethicone (Mylicon Chew Tab) 80 mg PO TID [facility] Last Admin: 02/15/17 09:25 Dose: 80 mg Sodium Chloride (Sodium Chloride 0.45%) 500 ml IV CONT [facility] Sodium Phosphate (Fleet Enema) 135 ml [place] ONCE ONE Stop: 02/15/17 09:54 Vitamin B Complex/Vit C/Folic Acid (Nephro-Ajay) 1 tab PO DAILY [facility] Last Admin: 02/15/17 09:25 Dose: 1 tab - Labs Labs: 02/10/17 06:30 02/10/17 06:30 - Constitutional Appears: No Acute Distress - Head Exam Head Exam: NORMAL INSPECTION - Eye Exam Eye Exam: Normal appearance - ENT Exam ENT Exam: Mucous Membranes Moist - Neck Exam Neck Exam: Normal Inspection - Respiratory Exam Respiratory Exam: Clear to Ausculation Bilateral, NORMAL BREATHING PATTERN - Cardiovascular Exam Cardiovascular Exam: REGULAR RHYTHM, +S1, +S2 - GI/Abdominal Exam GI & Abdominal Exam: Soft, Normal Bowel Sounds - Rectal Exam Rectal Exam: NORMAL INSPECTION Additional comments: Soft brown stool, no impaction. - Extremities Exam Additional comments: Dressings and wound vac intact RLE. PICCC line intact left femoral vein. - Back Exam Back Exam: NORMAL INSPECTION - Neurological Exam Neurological Exam: CN II-XII Intact, Oriented x3 - Psychiatric Exam Psychiatric exam: Normal Affect, Normal Mood - Skin Skin Exam: Dry, Normal Color, Warm Assessment and Plan (1) Status post below knee amputation of right lower extremity Status: Acute (2) Infection of amputation stump of right lower extremity Status: Acute (3) ESRD (end stage renal disease) on dialysis Status: Chronic (4) DM type 2 (diabetes mellitus, type 2) Status: Chronic (5) Elevated liver enzymes Status: Acute (6) Seizure disorder Status: Acute (7) Coagulopathy Status: Chronic (8) 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
[2017-02-15] MEDS: Sodium Chloride 0.45% 1,000 ML IV SCH (12:51)
[2017-02-15] MEDS: Santyl Collagenase OINTMENT TOP SCH (16:22)
--- NOTE | 2017-02-15 16:38 | PN ---
ENDO FOLLOWUP NOTE DATE: LOCATION: Room 706. SUBJECTIVE: This is a 46-year-old female with continued low normal fasting hypoglycemia as noted thereof. Her glucose values today were 83 early this morning with a bedtime glucose of 122. So, at this time, we will actually discontinue now her Levemir, which was given as a modified dose of 80 units subcu at bedtime daily as given. We will titrate incremental as indicated to optimize metabolic control. If hyperglycemic levels supervene, then we will add Januvia at 25 mg daily as indicated. We will continue the Prandin given as 2 mg p.o. t.i.d. as ordered. We will obtain serial chemistries and supplement accordingly as needed. We will follow. Irene Ambrose MD
--- NOTE | 2017-02-15 17:04 | CP.PCM.PN ---
Subjective - Date & Time of Evaluation Date of Evaluation: 02/15/17 Time of Evaluation: 17:02 - Subjective Subjective: Patient seen in room well known to me from past visits pain is controlled she is in surprisingly good spirits considering her medical status. few fingers remain and bilateral LE amputations I would not alter treatment at this point I will follow as needed thank you Objective - Vital Signs/Intake and Output Vital Signs (last 24 hours): Temp Pulse Resp BP Pulse Ox 97.9 F 90 20 123/81 99 02/15/17 16:15 02/15/17 16:15 02/15/17 16:15 02/15/17 16:15 02/15/17 16:15 - Medications Medications: Current Medications Acetaminophen (Tylenol 325mg Tab) 650 mg PO Q4 PRN PRN Reason: Fever >100.4 F Acetaminophen (Tylenol 325mg Tab) 650 mg PO Q4 PRN PRN Reason: Pain, Mild (1-3) Apixaban (Eliquis) 5 mg PO BID [facility] PRN Reason: Protocol Last Admin: 02/15/17 16:18 Dose: 5 mg Aspirin (Ecotrin) 81 mg PO DAILY [facility] Last Admin: 02/15/17 09:23 Dose: 81 mg Atorvastatin Calcium (Lipitor) 40 mg PO DAILY [facility] Last Admin: 02/15/17 09:23 Dose: 40 mg Calcitriol (Rocaltrol) 0.25 mcg PO DAILY [facility] Last Admin: 02/15/17 09:24 Dose: 0.25 mcg Calcium Carbonate (Oscal) 500 mg PO BIDWM [facility] Last Admin: 02/15/17 16:18 Dose: 500 mg Collagenase (Santyl) 1 applic TOP DAILY [facility] Last Admin: 02/15/17 16:22 Dose: 1 applic Docusate Sodium (Colace) 100 mg PO BID [facility] Last Admin: 02/15/17 16:18 Dose: 100 mg Ergocalciferol (Drisdol 50,000 Intl Units Cap) 1 cap PO Q7D [facility] Last Admin: 02/14/17 08:34 Dose: 1 cap Fluconazole (Diflucan) 100 mg PO DAILY [facility] Last Admin: 02/15/17 09:25 Dose: 100 mg Gabapentin (Neurontin) 300 mg PO TID [facility] Last Admin: 02/15/17 16:19 Dose: 300 mg Hydromorphone HCl (Dilaudid) 2 mg PO Q4 PRN PRN Reason: Pain, moderate (4-7) Last Admin: 02/15/17 16:17 Dose: 2 mg Hydromorphone HCl (Dilaudid) 1 mg IVP Q4 PRN PRN Reason: Pain, severe (8-10) Ceftazidime/Avibactam 0.94 gm/ (Sodium Chloride) 100 mls @ 50 mls/hr IVPB QOTHERDAY@1700 [facility] Last Admin: 02/14/17 18:28 Dose: 50 mls/hr Gentamicin Sulfate/Sodium Chloride (Gentamicin 60mg/50ml Ns) 60 mg in 50 mls @ 50 mls/hr IVPB MWF [facility] Last Admin: 02/14/17 08:43 Dose: 50 mls/hr Sodium Chloride (Sodium Chloride 0.45%) 1,000 mls @ 10 mls/hr IV .Q24H [facility] Last Admin: 02/15/17 12:51 Dose: 10 mls/hr Vancomycin HCl 500 mg/ Sodium (Chloride) 100 mls @ 100 mls/hr IVPB MWF@1700 [facility] Last Admin: 02/14/17 20:52 Dose: 100 mls/hr Lamotrigine (Lamictal) 50 mg PO Q12 [facility] Last Admin: 02/15/17 09:24 Dose: 50 mg Metoprolol Tartrate (Lopressor) 25 mg PO Q12 [facility] Last Admin: 02/15/17 09:23 Dose: 25 mg Ondansetron HCl (Zofran Inj) 4 mg IVP Q6 PRN PRN Reason: Nausea/Vomiting Pantoprazole Sodium (Protonix Ec Tab) 40 mg PO DAILY [facility] Last Admin: 02/15/17 09:22 Dose: 40 mg Repaglinide (Prandin) 2 mg PO TIDAC [facility] Last Admin: 02/15/17 16:17 Dose: 2 mg Sennosides (Senokot Tab) 25.8 mg PO HS [facility] Last Admin: 02/14/17 21:54 Dose: 25.8 mg Sevelamer HCl (Renagel) 1,600 mg PO TID [facility] Last Admin: 02/15/17 16:19 Dose: 1,600 mg Simethicone (Mylicon Chew Tab) 80 mg PO TID [facility] Last Admin: 02/15/17 16:41 Dose: 80 mg Sodium Chloride (Sodium Chloride 0.45%) 500 ml IV CONT [facility] Vitamin B Complex/Vit C/Folic Acid (Nephro-Ajay) 1 tab PO DAILY [facility] Last Admin: 02/15/17 09:25 Dose: 1 tab - Labs Labs: 02/10/17 06:30 02/10/17 06:30
[2017-02-16] MEDS: Multivitamin Vitamin B Complex (Nephro-Vite) Tab PO SCH (08:42)
[2017-02-16] MEDS: Pantoprazole 40 mg EC Tab PO SCH (08:42)
[2017-02-16] MEDS: Santyl Collagenase OINTMENT TOP SCH (08:43)
[2017-02-16] MEDS: Simethicone 80 mg Chewtab PO SCH ×3 (08:46→17:09)
[2017-02-16] MEDS: Sodium Chloride 0.45% 1,000 ML IV SCH (12:01)
--- NOTE | 2017-02-16 16:47 | PN ---
ENDO FOLLOWUP NOTE LOCATION: Room 706. SUBJECTIVE: This is a 46-year-old female with recent uncontrolled type 2 insulin-requiring diabetes with supervening hypoglycemic episodes and now has been taken off all basal and bolus insulin regimen as ordered. Her glucose levels are still low normal ranging from 80 to 107 and 83 and 122 mg/dL. So, at this time, we will discontinue all the basal insulin with Levemir as ordered and also discontinue the Humalog given t.i.d. before meals as given. We will actually continue her Prandin given as 2 mg p.o. t.i.d. before meals as given. We will titrate incrementally as indicated to optimize metabolic control. We will follow. Irene Ambrose MD
[2017-02-17 08:05] LABS: BASO # 0.1 K/uL (0.0-0.2); BASO % 0.9 % (0.0-2.0); EOS # 0.7 K/uL (0.0-0.7); EOS % 10.9 % (0.0-4.0); HEMATOCRIT 34.2 % (34.0-47.0); LYMPH # 1.4 K/uL (1.0-4.3); LYMPH % 22.7 % (20.0-40.0); MEAN CELL VOLUME 93.2 fl (81.0-99.0); MEAN CORPUSCULAR HEMOGLOBIN 29.1 pg (27.0-31.0); MEAN CORPUSCULAR HGB CONC 31.3 g/dL (33.0-37.0); MEAN PLATELET VOLUME 10.1 fl (7.2-11.7); MONO # 0.6 K/uL (0.0-0.8); MONO % 9.9 % (0.0-10.0); NEUT # 3.5 K/uL (1.8-7.0); NEUT % 55.6 % (50.0-75.0); RED CELL DISTRIBUTION WIDTH 17.2 % (11.5-14.5); WHITE BLOOD COUNT 6.2 K/uL (4.8-10.8)
[2017-02-17] MEDS: HYDROmorphone 0.5 mg/0.5 ml ISec IVP PRN (08:17)
[2017-02-17] MEDS: Gentamicin 60mg/50ml NS 60 MG/50 ML BAG IVPB SCH (08:25)
[2017-02-17] MEDS: Multivitamin Vitamin B Complex (Nephro-Vite) Tab PO SCH (08:26)
[2017-02-17] MEDS: Pantoprazole 40 mg EC Tab PO SCH (08:27)
[2017-02-17] MEDS: Santyl Collagenase OINTMENT TOP SCH (08:30)
[2017-02-17] MEDS: Simethicone 80 mg Chewtab PO SCH ×3 (08:31→16:34)
[2017-02-17 08:37] LABS: BILIRUBIN,TOTAL 0.3 mg/dl (0.2-1.3); TOTAL PROTEIN 7.9 G/DL (6.3-8.2)
[2017-02-17 08:39] LABS: POTASSIUM 5.5 MMOL/L (3.6-5.0)
[2017-02-17] MEDS: Sodium Chloride 0.45% 1,000 ML IV SCH (12:03)
--- NOTE | 2017-02-17 14:22 | CP.PCM.PN ---
Subjective - Date & Time of Evaluation Date of Evaluation: 02/17/17 Time of Evaluation: 14:20 - Subjective Subjective: I D NOTE HAVE ORDERED CULTURES IF NEGATIVE MAY D/C AVYCAZ PENDING CLINICAL FINDINGS GENTAMICIN TROUGH IS 2.3 ,WILL DISCONTINUE TODAYs DOSE,AND DECREASE DOSE TO 30MG STARTING ON FRIDAY(02/19/17) VANCOMYCIN TROUGH IS 13.1,HAVE DECREASED DOSE TO 250MG Objective - Vital Signs/Intake and Output Vital Signs (last 24 hours): Temp Pulse Resp BP Pulse Ox 96.4 F L 100 H 20 170/92 H 95 02/17/17 09:00 02/17/17 09:00 02/17/17 09:00 02/17/17 11:52 02/17/17 11:52 - Medications Medications: Current Medications Acetaminophen (Tylenol 325mg Tab) 650 mg PO Q4 PRN PRN Reason: Fever >100.4 F Acetaminophen (Tylenol 325mg Tab) 650 mg PO Q4 PRN PRN Reason: Pain, Mild (1-3) Apixaban (Eliquis) 5 mg PO BID [facility] PRN Reason: Protocol Last Admin: 02/17/17 10:31 Dose: Not Given Aspirin (Ecotrin) 81 mg PO DAILY [facility] Last Admin: 02/17/17 08:24 Dose: 81 mg Atorvastatin Calcium (Lipitor) 40 mg PO DAILY [facility] Last Admin: 02/17/17 08:25 Dose: 40 mg Calcitriol (Rocaltrol) 0.25 mcg PO DAILY [facility] Last Admin: 02/17/17 08:27 Dose: 0.25 mcg Calcium Carbonate (Oscal) 500 mg PO BIDWM [facility] Last Admin: 02/17/17 08:26 Dose: 500 mg Collagenase (Santyl) 1 applic TOP DAILY [facility] Last Admin: 02/17/17 08:30 Dose: 1 applic Docusate Sodium (Colace) 100 mg PO BID [facility] Last Admin: 02/17/17 08:23 Dose: 100 mg Ergocalciferol (Drisdol 50,000 Intl Units Cap) 1 cap PO Q7D [facility] Last Admin: 02/14/17 08:34 Dose: 1 cap Fluconazole (Diflucan) 100 mg PO DAILY [facility] Last Admin: 02/17/17 08:24 Dose: 100 mg Gabapentin (Neurontin) 300 mg PO TID [facility] Last Admin: 02/17/17 12:03 Dose: Not Given Hydromorphone HCl (Dilaudid) 2 mg PO Q4 PRN PRN Reason: Pain, moderate (4-7) Last Admin: 02/16/17 22:19 Dose: 2 mg Hydromorphone HCl (Dilaudid) 1 mg IVP Q4 PRN PRN Reason: Pain, severe (8-10) Last Admin: 02/17/17 08:17 Dose: 1 mg Sodium Chloride (Sodium Chloride 0.45%) 1,000 mls @ 10 mls/hr IV .Q24H [facility] Last Admin: 02/17/17 12:03 Dose: Not Given Ceftazidime/Avibactam 0.94 gm/ (Sodium Chloride) 100 mls @ 50 mls/hr IVPB MWF@ 1700 [facility] Gentamicin Sulfate 30 mg/ (Sodium Chloride) 50.75 mls @ 101.5 mls/hr [id number] PRN Reason: Protocol Vancomycin HCl 250 mg/ Sodium (Chloride) 100 mls @ 100 mls/hr IVPB [facility] PRN Reason: Protocol Lamotrigine (Lamictal) 50 mg PO Q12 [facility] Last Admin: 02/17/17 08:25 Dose: 50 mg Metoprolol Tartrate (Lopressor) 25 mg PO Q12 [facility] Last Admin: 02/17/17 08:26 Dose: 25 mg Ondansetron HCl (Zofran Inj) 4 mg IVP Q6 PRN PRN Reason: Nausea/Vomiting Pantoprazole Sodium (Protonix Ec Tab) 40 mg PO DAILY [facility] Last Admin: 02/17/17 08:27 Dose: 40 mg Repaglinide (Prandin) 0.5 mg PO TIDAC [facility] Sennosides (Senokot Tab) 25.8 mg PO HS [facility] Last Admin: 02/16/17 22:21 Dose: 25.8 mg Sevelamer HCl (Renagel) 1,600 mg PO TID [facility] Last Admin: 02/17/17 12:03 Dose: Not Given Simethicone (Mylicon Chew Tab) 80 mg PO TID [facility] Last Admin: 02/17/17 12:03 Dose: Not Given Sodium Chloride (Sodium Chloride 0.45%) 500 ml IV CONT [facility] Vitamin B Complex/Vit C/Folic Acid (Nephro-Ajay) 1 tab PO DAILY [facility] Last Admin: 02/17/17 08:26 Dose: 1 tab - Labs Labs: 02/17/17 07:57 02/17/17 07:57
--- NOTE | 2017-02-17 16:08 | CP.PCM.PN ---
Subjective - Date & Time of Evaluation Date of Evaluation: 02/17/17 Time of Evaluation: 16:03 - Subjective Subjective: Patient has just returned from hemodialysis at [facility]. No problems there. She complains of flatulence - enema worked well but then no bowel movements fpr 2 days. Will add probiotic (BACID) to see if it helps. Discussed antibiotics with Dr. Lemon. R BK wound vac changed today. She was told the wounds are "better," but I am waiting for pictures. To have LASER treatment for diabetic retinopathy in left eye tomorrow at Dr. Hernandez's office. Glucoses are running low but are acceptable (around 80 - 90). Eliquis renewed after it was discontinued by the [employer]. Objective - Vital Signs/Intake and Output Vital Signs (last 24 hours): Temp Pulse Resp BP Pulse Ox 96.4 F L 100 H 20 170/92 H 95 02/17/17 09:00 02/17/17 09:00 02/17/17 09:00 02/17/17 11:52 02/17/17 11:52 - Medications Medications: Current Medications Acetaminophen (Tylenol 325mg Tab) 650 mg PO Q4 PRN PRN Reason: Fever >100.4 F Acetaminophen (Tylenol 325mg Tab) 650 mg PO Q4 PRN PRN Reason: Pain, Mild (1-3) Apixaban (Eliquis) 5 mg PO BID [facility] PRN Reason: Protocol Last Admin: 02/17/17 10:31 Dose: Not Given Aspirin (Ecotrin) 81 mg PO DAILY [facility] Last Admin: 02/17/17 08:24 Dose: 81 mg Atorvastatin Calcium (Lipitor) 40 mg PO DAILY [facility] Last Admin: 02/17/17 08:25 Dose: 40 mg Calcitriol (Rocaltrol) 0.25 mcg PO DAILY [facility] Last Admin: 02/17/17 08:27 Dose: 0.25 mcg Calcium Carbonate (Oscal) 500 mg PO BIDWM [facility] Last Admin: 02/17/17 08:26 Dose: 500 mg Collagenase (Santyl) 1 applic TOP DAILY [facility] Last Admin: 02/17/17 08:30 Dose: 1 applic Docusate Sodium (Colace) 100 mg PO BID [facility] Last Admin: 02/17/17 08:23 Dose: 100 mg Ergocalciferol (Drisdol 50,000 Intl Units Cap) 1 cap PO Q7D [facility] Last Admin: 02/14/17 08:34 Dose: 1 cap Fluconazole (Diflucan) 100 mg PO DAILY [facility] Last Admin: 02/17/17 08:24 Dose: 100 mg Gabapentin (Neurontin) 300 mg PO TID [facility] Last Admin: 02/17/17 12:03 Dose: Not Given Hydromorphone HCl (Dilaudid) 2 mg PO Q4 PRN PRN Reason: Pain, moderate (4-7) Last Admin: 02/16/17 22:19 Dose: 2 mg Hydromorphone HCl (Dilaudid) 1 mg IVP Q4 PRN PRN Reason: Pain, severe (8-10) Last Admin: 02/17/17 08:17 Dose: 1 mg Sodium Chloride (Sodium Chloride 0.45%) 1,000 mls @ 10 mls/hr IV .Q24H [facility] Last Admin: 02/17/17 12:03 Dose: Not Given Ceftazidime/Avibactam 0.94 gm/ (Sodium Chloride) 100 mls @ 50 mls/hr IVPB MWF@ 1700 [facility] Vancomycin HCl 250 mg/ Sodium (Chloride) 100 mls @ 100 [facility]ls/[facility] PR[facility] Reason: Protocol Gentamicin Sulfate 30 mg/ (Sodium Chloride) 50.75 mls @ 101.5 mls/hr IVPB [facility] PRN Reason: Protocol Lactobacillus Acidophilus (Bacid Acidophilus) 1 cap PO BID [facility] Lamotrigine (Lamictal) 50 mg PO Q12 [facility] Last Admin: 02/17/17 08:25 Dose: 50 mg Metoprolol Tartrate (Lopressor) 25 mg PO Q12 [facility] Last Admin: 02/17/17 08:26 Dose: 25 mg Ondansetron HCl (Zofran Inj) 4 mg IVP Q6 PRN PRN Reason: Nausea/Vomiting Pantoprazole Sodium (Protonix Ec Tab) 40 mg PO DAILY [facility] Last Admin: 02/17/17 08:27 Dose: 40 mg Repaglinide (Prandin) 0.5 mg PO TIDAC [facility] Sennosides (Senokot Tab) 25.8 mg PO HS [facility] Last Admin: 02/16/17 22:21 Dose: 25.8 mg Sevelamer HCl (Renagel) 1,600 mg PO TID [facility] Last Admin: 02/17/17 12:03 Dose: Not Given Simethicone (Mylicon Chew Tab) 80 mg PO TID [facility] Last Admin: 02/17/17 12:03 Dose: Not Given Sodium Chloride (Sodium Chloride 0.45%) 500 ml IV CONT [facility] Vitamin B Complex/Vit C/Folic Acid (Nephro-Ajay) 1 tab PO DAILY [facility] Last Admin: 02/17/17 08:26 Dose: 1 tab - Labs Labs: 02/17/17 07:57 02/17/17 07:57 - Constitutional Appears: No Acute Distress - Head Exam Head Exam: NORMAL INSPECTION - Eye Exam Eye Exam: Normal appearance - ENT Exam ENT Exam: Mucous Membranes Moist - Neck Exam Neck Exam: Normal Inspection - Respiratory Exam Respiratory Exam: Clear to Ausculation Bilateral, NORMAL BREATHING PATTERN - Cardiovascular Exam Cardiovascular Exam: REGULAR RHYTHM, +S1, +S2 - GI/Abdominal Exam GI & Abdominal Exam: Soft, Normal Bowel Sounds - Extremities Exam Additional comments: Dressings and wound vac intact RLE. L femoral vein PICC line intact. - Back Exam Back Exam: NORMAL INSPECTION - Psychiatric Exam Psychiatric exam: Normal Affect, Normal Mood - Skin Skin Exam: Dry, Intact, Normal Color Assessment and Plan (1) Status post below knee amputation of right lower extremity Assessment & Plan: Making progress in healing. Antibiotics adjusted by Dr. Lemon in view of gentamicin and vancomycin trough levels. 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 Status: Acute (11) Gallstones without obstruction of gallbladder Status: Acute
[2017-02-17] MEDS: Lactobacillus Acidophilus 500 MU Cap PO SCH (16:33)
[2017-02-17] MEDS: Vancomycin 250 MG in Sodium Chloride 0.9% 100 ML IVPB SCH (16:33)
[2017-02-17] MEDS ORDERED: GENTAMICIN IVPB SCH (17:00)
[2017-02-17] MEDS ORDERED: SODIUM CHLORIDE 0.9% IVPB SCH (17:00)
--- NOTE | 2017-02-17 18:39 | PN ---
ENDOCRINOLOGY FOLLOWUP NOTE LOCATION: Room #706. SUMMARY: This is a 46-year-old female with recent uncontrolled type 2 insulin-requiring diabetes, now continuing to have low normal glycemic profile despite the discontinuation of the basal and bolus insulin regimen as undertaken. Her glucose levels today have ranged from 78 to 84 and 90 mg/dL. Her latest chemistry showed a BUN of 61, sodium 137, potassium 5.5, chloride 99, CO2 23, glucose 78, and creatinine 6.8. So, at this time, we will actually lower the oral hypoglycemic drug therapy as ordered with Prandin given as 0.5 mg p.o. t.i.d. before meals as ordered. We will obtain serial chemistries and supplement accordingly as needed. We will follow. Irene Ambrose MD
[2017-02-17] MEDS ORDERED: Gentamicin 60mg/50ml NS 60 MG/50 ML BAG IVPB SCH (21:00)
[2017-02-18] MEDS: Pantoprazole 40 mg EC Tab PO SCH (08:18)
[2017-02-18] MEDS: Multivitamin Vitamin B Complex (Nephro-Vite) Tab PO SCH (08:19)
[2017-02-18] MEDS: Santyl Collagenase OINTMENT TOP SCH (08:22)
[2017-02-18] MEDS: Lactobacillus Acidophilus 500 MU Cap PO SCH ×2 (08:23→16:56)
[2017-02-18] MEDS: Simethicone 80 mg Chewtab PO SCH ×3 (08:23→16:51)
[2017-02-18] MEDS: Sodium Chloride 0.45% 1,000 ML IV SCH (13:52)
--- NOTE | 2017-02-18 18:14 | PN ---
ENDO FOLLOWUP NOTE LOCATION: Room 706. SUBJECTIVE: This is a 46-year-old female with recent uncontrolled type 2 insulin-requiring diabetes, now being followed closely for metabolic management. Her glycemic levels are fluctuating, but much improved at this time and the latest glucose levels so far have ranged from 80 to 119 mg/dL. Her latest chemistry showed a BUN of 61, sodium 137, potassium 5.5, chloride 99, CO2 of 23, glucose 78, and creatinine 6.8. PLAN: So, at this time, we will continue the low-dose oral hypoglycemic drug therapy with Prandin given as 0.5 mg p.o. t.i.d. before meals as ordered. We will titrate incremental as indicated to optimize metabolic control. We will follow and advise accordingly. Irene Ambrose MD
--- NOTE | 2017-02-18 18:51 | CP.PCM.PN ---
Subjective - Date & Time of Evaluation Date of Evaluation: 02/18/17 Time of Evaluation: 18:47 - Subjective Subjective: Patient went to Dr. Hernandez's office today. for LASER treatment of diabetic retinopathy in the left eye. She is scheduled to return to him on March 25 for follow-up. Physical and occupational therapy continue to go well, and she may be able to go to acute rehab. next week. So far wound culture of the right leg is negative (at 24 hours) but it is not clear if it was the patella or the BK incision that were cultured. ??? Dr. Lemon's note of 02/17 and antibiotic adjustments appreciated (qv). No fevers, pain or dyspnea. Still "gassy" despite BACID. Will give it a little time. DM controlled. Objective - Vital Signs/Intake and Output Vital Signs (last 24 hours): Temp Pulse Resp BP Pulse Ox 97.6 F 103 H 20 154/84 H 100 02/18/17 09:00 02/18/17 09:00 02/18/17 09:00 02/18/17 09:00 02/18/17 09:00 - Medications Medications: Current Medications Acetaminophen (Tylenol 325mg Tab) 650 mg PO Q4 PRN PRN Reason: Fever >100.4 F Acetaminophen (Tylenol 325mg Tab) 650 mg PO Q4 PRN PRN Reason: Pain, Mild (1-3) Apixaban (Eliquis) 5 mg PO BID [facility] PRN Reason: Protocol Last Admin: 02/18/17 16:51 Dose: 5 mg Aspirin (Ecotrin) 81 mg PO DAILY [facility] Last Admin: 02/18/17 08:19 Dose: 81 mg Atorvastatin Calcium (Lipitor) 40 mg PO DAILY [facility] Last Admin: 02/18/17 08:19 Dose: 40 mg Calcitriol (Rocaltrol) 0.25 mcg PO DAILY [facility] Last Admin: 02/18/17 08:19 Dose: 0.25 mcg Calcium Carbonate (Oscal) 500 mg PO BIDWM [facility] Last Admin: 02/18/17 16:51 Dose: 500 mg Collagenase (Santyl) 1 applic TOP DAILY [facility] Last Admin: 02/18/17 08:22 Dose: 1 applic Docusate Sodium (Colace) 100 mg PO BID [facility] Last Admin: 02/18/17 16:50 Dose: 100 mg Ergocalciferol (Drisdol 50,000 Intl Units Cap) 1 cap PO Q7D [facility] Last Admin: 02/14/17 08:34 Dose: 1 cap Fluconazole (Diflucan) 100 mg PO DAILY [facility] Last Admin: 02/18/17 08:18 Dose: 100 mg Gabapentin (Neurontin) 300 mg PO TID [facility] Last Admin: 02/18/17 16:50 Dose: 300 mg Hydromorphone HCl (Dilaudid) 2 mg PO Q4 PRN PRN Reason: Pain, moderate (4-7) Last Admin: 02/18/17 16:55 Dose: 2 mg Hydromorphone HCl (Dilaudid) 1 mg IVP Q4 PRN PRN Reason: Pain, severe (8-10) Last Admin: 02/17/17 08:17 Dose: 1 mg Sodium Chloride (Sodium Chloride 0.45%) 1,000 mls @ 10 mls/hr IV .Q24H [facility] Last Admin: 02/18/17 13:52 Dose: Not Given Ceftazidime/Avibactam 0.94 gm/ (Sodium Chloride) 100 mls @ 50 mls/hr IVPB MWF@ 1700 [facility] Last Admin: 02/17/17 16:33 Dose: 50 mls/hr Vancomycin HCl 250 mg/ Sodium (Chloride) 100 mls @ 100 mls/hr IVPB MWF [facility] PRN Reason: Protocol Last Admin: 02/17/17 16:33 Dose: 100 mls/hr Gentamicin Sulfate 30 mg/ (Sodium Chloride) 50.75 mls @ 101.5 mls/hr [facility] PRN Reason: Protocol Lactobacillus Acidophilus (Bacid Acidophilus) 1 cap PO BID [facility] Last Admin: 02/18/17 08:23 Dose: 1 cap Lamotrigine (Lamictal) 50 mg PO Q12 [facility] Last Admin: 02/18/17 08:18 Dose: 50 mg Metoprolol Tartrate (Lopressor) 25 mg PO Q12 [facility] Last Admin: 02/18/17 08:17 Dose: 25 mg Ondansetron HCl (Zofran Inj) 4 mg IVP Q6 PRN PRN Reason: Nausea/Vomiting Pantoprazole Sodium (Protonix Ec Tab) 40 mg PO DAILY [facility] Last Admin: 02/18/17 08:18 Dose: 40 mg Repaglinide (Prandin) 0.5 mg PO TIDAC [facility] Last Admin: 02/18/17 16:51 Dose: 0.5 mg Sennosides (Senokot Tab) 25.8 mg PO HS [facility] Last Admin: 02/17/17 21:38 Dose: 25.8 mg Sevelamer HCl (Renagel) 1,600 mg PO TID [facility] Last Admin: 02/18/17 16:50 Dose: 1,600 mg Simethicone (Mylicon Chew Tab) 80 mg PO TID [facility] Last Admin: 02/18/17 16:51 Dose: 80 mg Sodium Chloride (Sodium Chloride 0.45%) 500 ml IV CONT [facility] Vitamin B Complex/Vit C/Folic Acid (Nephro-Ajay) 1 tab PO DAILY [facility] Last Admin: 02/18/17 08:19 Dose: 1 tab - Labs Labs: 02/17/17 07:57 02/17/17 07:57 - Constitutional Appears: No Acute Distress - Head Exam Head Exam: NORMAL INSPECTION - Eye Exam Eye Exam: Conjunctival injection - ENT Exam ENT Exam: Mucous Membranes Moist - Neck Exam Neck Exam: Normal Inspection - Respiratory Exam Respiratory Exam: Clear to Ausculation Bilateral, NORMAL BREATHING PATTERN - Cardiovascular Exam Cardiovascular Exam: REGULAR RHYTHM, +S1, +S2 - GI/Abdominal Exam GI & Abdominal Exam: Soft - Rectal Exam Rectal Exam: NORMAL INSPECTION - Extremities Exam Additional comments: Wound vac and dressings intact RLE. - Back Exam Back Exam: NORMAL INSPECTION - Neurological Exam Neurological Exam: Alert, Oriented x3 - Psychiatric Exam Psychiatric exam: Normal Affect, Normal Mood - Skin Skin Exam: Dry, Normal Color, Warm Assessment and Plan (1) Status post below knee amputation of right lower extremity Status: Acute (2) Infection of amputation stump of right lower extremity Status: Acute (3) ESRD (end stage renal disease) on dialysis Status: Chronic (4) DM type 2 (diabetes mellitus, type 2) Status: Chronic (5) Elevated liver enzymes Status: Acute (6) Seizure disorder Status: Acute (7) Coagulopathy Status: Chronic (8) 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
[2017-02-19] MEDS: Simethicone 80 mg Chewtab PO SCH ×3 (08:38→16:55)
[2017-02-19] MEDS: Lactobacillus Acidophilus 500 MU Cap PO SCH ×2 (08:38→16:55)
[2017-02-19] MEDS: Pantoprazole 40 mg EC Tab PO SCH (08:40)
[2017-02-19] MEDS: Multivitamin Vitamin B Complex (Nephro-Vite) Tab PO SCH (08:40)
[2017-02-19] MEDS: Vancomycin 250 MG in Sodium Chloride 0.9% 100 ML IVPB SCH ×2 (08:41→16:57)
[2017-02-19] MEDS: Santyl Collagenase OINTMENT TOP SCH (08:42)
--- NOTE | 2017-02-19 10:22 | CP.PCM.PN ---
Subjective - Date & Time of Evaluation Date of Evaluation: 02/19/17 Time of Evaluation: 10:18 - Subjective Subjective: Patient has less gassiness since moving bowels yesterday. It seems the BACID is working. Tearing from left eye. which looks sl irritated, following LASER treatment yesterday. Will add monitor. She said this occurred after right eye was treated last week and resolved quickly. Due for wound vac change R BK wound tomorrow. I swabbed the right patella with saline to remove loose devitalized tissue and snipped off a bit of tissue. It looks much better. To continue daily Santyl dressings. The culture of the right leg is still negative. It was done by swabbing the BK wound. Leaving for hemodialysis now. Objective - Vital Signs/Intake and Output Vital Signs (last 24 hours): Temp Pulse Resp BP Pulse Ox 96.4 F L 104 H 20 161/84 H 96 02/19/17 08:26 02/19/17 08:39 02/19/17 08:26 02/19/17 08:39 02/19/17 08:26 - Medications Medications: Current Medications Acetaminophen (Tylenol 325mg Tab) 650 mg PO Q4 PRN PRN Reason: Fever >100.4 F Acetaminophen (Tylenol 325mg Tab) 650 mg PO Q4 PRN PRN Reason: Pain, Mild (1-3) Apixaban (Eliquis) 5 mg PO BID [facility] PRN Reason: Protocol Last Admin: 02/19/17 08:39 Dose: 5 mg Aspirin (Ecotrin) 81 mg PO DAILY [facility] Last Admin: 02/19/17 08:39 Dose: 81 mg Atorvastatin Calcium (Lipitor) 40 mg PO DAILY [facility] Last Admin: 02/19/17 08:39 Dose: 40 mg Calcitriol (Rocaltrol) 0.25 mcg PO DAILY [facility] Last Admin: 02/19/17 08:41 Dose: 0.25 mcg Calcium Carbonate (Oscal) 500 mg PO BIDWM [facility] Last Admin: 02/19/17 08:40 Dose: 500 mg Collagenase (Santyl) 1 applic TOP DAILY [facility] Last Admin: 02/19/17 08:42 Dose: 1 applic Docusate Sodium (Colace) 100 mg PO BID [facility] Last Admin: 02/19/17 08:38 Dose: 100 mg Ergocalciferol (Drisdol 50,000 Intl Units Cap) 1 cap PO Q7D [facility] Last Admin: 02/14/17 08:34 Dose: 1 cap Fluconazole (Diflucan) 100 mg PO DAILY [facility] Last Admin: 02/19/17 08:39 Dose: 100 mg Gabapentin (Neurontin) 300 mg PO TID [facility] Last Admin: 02/19/17 08:40 Dose: 300 mg Hydromorphone HCl (Dilaudid) 2 mg PO Q4 PRN PRN Reason: Pain, moderate (4-7) Last Admin: 02/18/17 21:28 Dose: 2 mg Hydromorphone HCl (Dilaudid) 1 mg IVP Q4 PRN PRN Reason: Pain, severe (8-10) Last Admin: 02/17/17 08:17 Dose: 1 mg Sodium Chloride (Sodium Chloride 0.45%) 1,000 mls @ 10 mls/hr IV .Q24H [facility] Last Admin: 02/18/17 13:52 Dose: Not Given Ceftazidime/Avibactam 0.94 gm/ (Sodium Chloride) 100 mls @ 50 mls/hr IVPB MWF@ 1700 [facility] Last Admin: 02/17/17 16:33 Dose: 50 mls/hr Gentamicin Sulfate 30 mg/ (Sodium Chloride) 50.75 mls @ 101.5 mls/hr IVPB MWF [facility] PRN Reason: Protocol Vancomycin HCl 250 mg/ Sodium (Chloride) 100 mls @ 100 mls/hr IVPB MWF@1700 [facility] PRN Reason: Protocol Lactobacillus Acidophilus (Bacid Acidophilus) 1 cap PO BID [facility] Last Admin: 02/19/17 08:38 Dose: 1 cap Lamotrigine (Lamictal) 50 mg PO Q12 [facility] Last Admin: 02/19/17 08:39 Dose: 50 mg Metoprolol Tartrate (Lopressor) 25 mg PO Q12 [facility] Last Admin: 02/19/17 08:39 Dose: 25 mg Ondansetron HCl (Zofran Inj) 4 mg IVP Q6 PRN PRN Reason: Nausea/Vomiting Pantoprazole Sodium (Protonix Ec Tab) 40 mg PO DAILY [facility] Last Admin: 02/19/17 08:40 Dose: 40 mg Repaglinide (Prandin) 0.5 mg PO TIDAC [facility] Last Admin: 02/19/17 08:40 Dose: 0.5 mg Sennosides (Senokot Tab) 25.8 mg PO HS [facility] Last Admin: 02/18/17 21:27 Dose: 25.8 mg Sevelamer HCl (Renagel) 1,600 mg PO TID [facility] Last Admin: 02/19/17 08:40 Dose: 1,600 mg Simethicone (Mylicon Chew Tab) 80 mg PO TID [facility] Last Admin: 02/19/17 08:38 Dose: 80 mg Sodium Chloride (Sodium Chloride 0.45%) 500 ml IV CONT [facility] Vitamin B Complex/Vit C/Folic Acid (Nephro-Ajay) 1 tab PO DAILY [facility] Last Admin: 02/19/17 08:40 Dose: 1 tab - Labs Labs: 02/17/17 07:57 02/17/17 07:57 Assessment and Plan (1) Status post below knee amputation of right lower extremity Status: Acute (2) Infection of amputation stump of right lower extremity Status: Acute (3) ESRD (end stage renal disease) on dialysis Status: Chronic (4) DM type 2 (diabetes mellitus, type 2) Status: Chronic (5) Elevated liver enzymes Status: Acute (6) Seizure disorder Status: Acute (7) Coagulopathy Status: Chronic (8) 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
[2017-02-19] MEDS: Sodium Chloride 0.45% 1,000 ML IV SCH (12:14)
--- NOTE | 2017-02-19 13:12 | CP.PCM.PN ---
Subjective - Date & Time of Evaluation Date of Evaluation: 02/19/17 Time of Evaluation: 13:09 - Subjective Subjective: Patient is comfortable no acute distress Appetite is good And patient feeling much better Objective - Vital Signs/Intake and Output Vital Signs (last 24 hours): Temp Pulse Resp BP Pulse Ox 96.4 F L 104 H 20 161/84 H 96 02/19/17 08:26 02/19/17 08:39 02/19/17 08:26 02/19/17 08:39 02/19/17 08:26 - Medications Medications: Current Medications Acetaminophen (Tylenol 325mg Tab) 650 mg PO Q4 PRN PRN Reason: Fever >100.4 F Acetaminophen (Tylenol 325mg Tab) 650 mg PO Q4 PRN PRN Reason: Pain, Mild (1-3) Apixaban (Eliquis) 5 mg PO BID [facility] PRN Reason: Protocol Last Admin: 02/19/17 08:39 Dose: 5 mg Aspirin (Ecotrin) 81 mg PO DAILY [facility] Last Admin: 02/19/17 08:39 Dose: 81 mg Atorvastatin Calcium (Lipitor) 40 mg PO DAILY [facility] Last Admin: 02/19/17 08:39 Dose: 40 mg Calcitriol (Rocaltrol) 0.25 mcg PO DAILY [facility] Last Admin: 02/19/17 08:41 Dose: 0.25 mcg Calcium Carbonate (Oscal) 500 mg PO BIDWM [facility] Last Admin: 02/19/17 08:40 Dose: 500 mg Collagenase (Santyl) 1 applic TOP DAILY [facility] Last Admin: 02/19/17 08:42 Dose: 1 applic Docusate Sodium (Colace) 100 mg PO BID [facility] Last Admin: 02/19/17 08:38 Dose: 100 mg Ergocalciferol (Drisdol 50,000 Intl Units Cap) 1 cap PO Q7D [facility] Last Admin: 02/14/17 08:34 Dose: 1 cap Fluconazole (Diflucan) 100 mg PO DAILY [facility] Last Admin: 02/19/17 08:39 Dose: 100 mg Gabapentin (Neurontin) 300 mg PO TID [facility] Last Admin: 02/19/17 12:14 Dose: Not Given Hydromorphone HCl (Dilaudid) 2 mg PO Q4 PRN PRN Reason: Pain, moderate (4-7) Last Admin: 02/18/17 21:28 Dose: 2 mg Hydromorphone HCl (Dilaudid) 1 mg IVP Q4 PRN PRN Reason: Pain, severe (8-10) Last Admin: 02/17/17 08:17 Dose: 1 mg Sodium Chloride (Sodium Chloride 0.45%) 1,000 mls @ 10 mls/hr IV .Q24H [facility] Last Admin: 02/19/17 12:14 Dose: Not Given Ceftazidime/Avibactam 0.94 gm/ (Sodium Chloride) 100 mls @ 50 mls/hr IVPB MWF@ 1700 [facility] Last Admin: 02/17/17 16:33 Dose: 50 mls/hr Gentamicin Sulfate 30 mg/ (Sodium Chloride) 50.75 mls @ 101.5 mls/hr IVPB MWF [facility] PRN Reason: Protocol Vancomycin HCl 250 mg/ Sodium (Chloride) 100 mls @ 100 mls/hr IVPB MWF@1700 [facility] PRN Reason: Protocol Lactobacillus Acidophilus (Bacid Acidophilus) 1 cap PO BID [facility] Last Admin: 02/19/17 08:38 Dose: 1 cap Lamotrigine (Lamictal) 50 mg PO Q12 [facility] Last Admin: 02/19/17 08:39 Dose: 50 mg Metoprolol Tartrate (Lopressor) 25 mg PO Q12 [facility] Last Admin: 02/19/17 08:39 Dose: 25 mg Ondansetron HCl (Zofran Inj) 4 mg IVP Q6 PRN PRN Reason: Nausea/Vomiting Pantoprazole Sodium (Protonix Ec Tab) 40 mg PO DAILY [facility] Last Admin: 02/19/17 08:40 Dose: 40 mg Repaglinide (Prandin) 0.5 mg PO TIDAC [facility] Last Admin: 02/19/17 11:47 Dose: Not Given Sennosides (Senokot Tab) 25.8 mg PO HS [facility] Last Admin: 02/18/17 21:27 Dose: 25.8 mg Sevelamer HCl (Renagel) 1,600 mg PO TID [facility] Last Admin: 02/19/17 12:14 Dose: Not Given Simethicone (Mylicon Chew Tab) 80 mg PO TID [facility] Last Admin: 02/19/17 12:14 Dose: Not Given Sodium Chloride (Sodium Chloride 0.45%) 500 ml IV CONT [facility] Vitamin B Complex/Vit C/Folic Acid (Nephro-Ajay) 1 tab PO DAILY [facility] Last Admin: 02/19/17 08:40 Dose: 1 tab - Labs Labs: 02/17/17 07:57 02/17/17 07:57 - Constitutional Appears: No Acute Distress - ENT Exam ENT Exam: Mucous Membranes Moist - Neck Exam Neck Exam: absent: Lymphadenopathy - Respiratory Exam Respiratory Exam: NORMAL BREATHING PATTERN. absent: Chest Wall Tenderness, Rales - Cardiovascular Exam Cardiovascular Exam: absent: JVD, Rubs - GI/Abdominal Exam GI & Abdominal Exam: Soft, Normal Bowel Sounds. absent: Rigid - Extremities Exam Extremities Exam: absent: Calf Tenderness - Back Exam Back Exam: absent: CVA tenderness (L), CVA tenderness (R) - Neurological Exam Neurological Exam: Alert Assessment and Plan (1) Chronic kidney disease requiring chronic dialysis Assessment & Plan: End stage renal disease on maintenance hemodialysis Friday Patient receiving dialysis outpatient at [facility] Review blood work Hemoglobin dropping down slowly To resume EPO 4000 units subcutaneous in the hospital. The rest of the medical problem as noted previously Hx of allergy to heparin and coaguloapthy due to protein C/S def and currently on ASA and Eliquis. Multiple surgery with status post right below knee amputation with multiple interventions related to cellulitis and infection of the stump. 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
[2017-02-19] MEDS: Epoetin Alfa 4000 UNIT/ML Inj SC SCH (16:55)
[2017-02-19] MEDS: SODIUM CHLORIDE 0.9% IVPB SCH (16:58)
[2017-02-19] MEDS: GENTAMICIN IVPB SCH (16:58)
--- NOTE | 2017-02-19 18:42 | PN ---
ENDO FOLLOWUP NOTE DATE: LOCATION: Room 706. SUBJECTIVE: This is a 46-year-old female with recent uncontrolled type 2 diabetes, now with improved glycemic profile and a recent discontinuation of her insulin regimen as ordered. Her glucose values are still low normal, ranging from 82-108 mg/dL. So, at this time, we will continue the low-dose oral hypoglycemic drug therapy as given with Prandin given as 0.5 mg p.o. t.i.d. before meals as ordered. We will titrate incrementally as indicated to optimize metabolic control. We will follow and advise accordingly. Irene Ambrose MD
[2017-02-19] MEDS: Tobramycin 0.3% OPHT SOLN OU SCH (21:15)
[2017-02-20] MEDS: HYDROmorphone 0.5 mg/0.5 ml ISec IVP PRN (08:27)
[2017-02-20] MEDS: Multivitamin Vitamin B Complex (Nephro-Vite) Tab PO SCH (08:31)
[2017-02-20] MEDS: Pantoprazole 40 mg EC Tab PO SCH (08:34)
[2017-02-20] MEDS: Simethicone 80 mg Chewtab PO SCH ×3 (08:37→16:41)
[2017-02-20] MEDS: Lactobacillus Acidophilus 500 MU Cap PO SCH ×2 (08:37→16:40)
[2017-02-20] MEDS: Tobramycin 0.3% OPHT SOLN OU SCH ×4 (08:43→21:55)
--- NOTE | 2017-02-20 10:33 | CP.PCM.PN ---
Subjective - Date & Time of Evaluation Date of Evaluation: 02/20/17 Time of Evaluation: 19:00 - Subjective Subjective: R BK wound vac changed today along with patellar dressing. Awaiting pictures. Culture done on 02/17 shows persistence of Klebsiella pneumoniae, MDR. Dr. Lemon is aware and is looking into this. He advised that we continue the Ceftazidime/avibactam as before (0.94 mg qMWF after dialysis. He will decide on dosing of vancomycin and gentamicin tomorrow. Glucoses in the 90 to 120 range, which is good. Dr. Ambrose stopped insulin. Patient is on Prandin 0.5mg tid ac. Left eye receiving tobramycin drops - not sure if this is infection or irritation, but playing safe. Still with nasal congestion, sneezing - I suspect she picked up a viral respiratory infection at the outpatient dialysis center ! She is on claritin 10 mg once a day. Dr. Daniels's note appreciated. I will request transfer to Acute Rehabilitation on Sat 02/22. She has hemodialysis at [facility] tomorrow and will return too late for transfer tomorrow. Still gassy. I will begin Miralax, and since she will be more active in acute rehab, I will put the Miralax in 8 oz of Nepro once daily.. Note that the Quantiferon test is negative. (See under labs.) Objective - Vital Signs/Intake and Output Vital Signs (last 24 hours): Temp Pulse Resp BP Pulse Ox 97.9 F 108 H 20 175/85 H 95 02/20/17 08:25 02/20/17 08:33 02/20/17 08:25 02/20/17 08:33 02/20/17 08:25 - Medications Medications: Current Medications Acetaminophen (Tylenol 325mg Tab) 650 mg PO Q4 PRN PRN Reason: Fever >100.4 F Acetaminophen (Tylenol 325mg Tab) 650 mg PO Q4 PRN PRN Reason: Pain, Mild (1-3) Apixaban (Eliquis) 5 mg PO BID [facility] PRN Reason: Protocol Last Admin: 02/20/17 08:32 Dose: 5 mg Aspirin (Ecotrin) 81 mg PO DAILY [facility] Last Admin: 02/20/17 08:34 Dose: 81 mg Atorvastatin Calcium (Lipitor) 40 mg PO DAILY [facility] Last Admin: 02/20/17 08:35 Dose: 40 mg Calcitriol (Rocaltrol) 0.25 mcg PO DAILY [facility] Last Admin: 02/20/17 08:33 Dose: 0.25 mcg Calcium Carbonate (Oscal) 500 mg PO BIDWM [facility] Last Admin: 02/20/17 08:32 Dose: 500 mg Collagenase (Santyl) 1 applic TOP DAILY [facility] Last Admin: 02/19/17 08:42 Dose: 1 applic Docusate Sodium (Colace) 100 mg PO BID [facility] Last Admin: 02/20/17 08:32 Dose: 100 mg Epoetin Tha (Procrit) 4,000 unit SC MWF [facility] Last Admin: 02/19/17 16:55 Dose: 4,000 unit Ergocalciferol (Drisdol 50,000 Intl Units Cap) 1 cap PO Q7D [facility] Last Admin: 02/14/17 08:34 Dose: 1 cap Fluconazole (Diflucan) 100 mg PO DAILY [facility] Last Admin: 02/20/17 08:34 Dose: 100 mg Gabapentin (Neurontin) 300 mg PO TID [facility] Last Admin: 02/20/17 08:31 Dose: 300 mg Hydromorphone HCl (Dilaudid) 2 mg PO Q4 PRN PRN Reason: Pain, moderate (4-7) Last Admin: 02/19/17 21:17 Dose: 2 mg Hydromorphone HCl (Dilaudid) 1 mg IVP Q4 PRN PRN Reason: Pain, severe (8-10) Last Admin: 02/20/17 08:27 Dose: 1 mg Sodium Chloride (Sodium Chloride 0.45%) 1,000 mls @ 10 mls/hr IV .Q24H [facility] Last Admin: 02/19/17 12:14 Dose: Not Given Ceftazidime/Avibactam 0.94 gm/ (Sodium Chloride) 100 mls @ 50 mls/hr IVPB MWF@ 1700 [facility] Last Admin: 02/19/17 16:57 Dose: 50 mls/hr Gentamicin Sulfate 30 mg/ (Sodium Chloride) 50.75 mls @ 101.5 mls/hr IVPB MWF [facility] PRN Reason: Protocol Last Admin: 02/19/17 16:58 Dose: 101.5 mls/hr Vancomycin HCl 250 mg/ Sodium (Chloride) 100 mls @ 100 mls/hr IVPB MWF@1700 [facility] PRN Reason: Protocol Last Admin: 02/19/17 16:57 Dose: 100 mls/hr Lactobacillus Acidophilus (Bacid Acidophilus) 1 cap PO BID [facility] Last Admin: 02/20/17 08:37 Dose: 1 cap Lamotrigine (Lamictal) 50 mg PO Q12 [facility] Last Admin: 02/20/17 08:32 Dose: 50 mg Loratadine (Claritin) 10 mg PO DAILY [facility] Last Admin: 02/20/17 08:31 Dose: 10 mg Metoprolol Tartrate (Lopressor) 25 mg PO Q12 [facility] Last Admin: 02/20/17 08:33 Dose: 25 mg Ondansetron HCl (Zofran Inj) 4 mg IVP Q6 PRN PRN Reason: Nausea/Vomiting Pantoprazole Sodium (Protonix Ec Tab) 40 mg PO DAILY [facility] Last Admin: 02/20/17 08:34 Dose: 40 mg Repaglinide (Prandin) 0.5 mg PO TIDAC [facility] Last Admin: 02/20/17 08:31 Dose: 0.5 mg Sennosides (Senokot Tab) 25.8 mg PO HS [facility] Last Admin: 02/19/17 21:15 Dose: 25.8 mg Sevelamer HCl (Renagel) 1,600 mg PO TID [facility] Last Admin: 02/20/17 08:33 Dose: 1,600 mg Simethicone (Mylicon Chew Tab) 80 mg PO TID [facility] Last Admin: 02/20/17 08:37 Dose: 80 mg Sodium Chloride (Sodium Chloride 0.45%) 500 ml IV CONT [facility] Tobramycin Sulfate (Tobrex 0.3% [facility]) 1 drop OU QID [facility] Last Admin: 02/20/17 08:43 Dose: 1 drop Vitamin B Complex/Vit C/Folic Acid (Nephro-Ajay) 1 tab PO DAILY [facility] Last Admin: 02/20/17 08:31 Dose: 1 tab - Labs Labs: 02/17/17 07:57 02/17/17 07:57 Laboratory Results - last 72 hr 02/17/17 02/18/17 02/18/17 11:00 07:00 17:00 POC Glucose (mg/dL) 80 108 TB Test (QFT) Nil 0.09 TB Test Mitogen - Nil 1.25 TB Test TB - Nil <0.00 TB Test (QFT) Negative 02/19/17 02/19/17 02/20/17 06:54 16:56 05:59 POC Glucose (mg/dL) 82 126 H 94 TB Test (QFT) Nil TB Test Mitogen - Nil TB Test TB - Nil TB Test (QFT) 02/20/17 16:12 POC Glucose (mg/dL) 125 H TB Test (QFT) Nil TB Test Mitogen - Nil TB Test TB - Nil TB Test (QFT) Microbiology 02/17/17 10:08 Leg - Right Gram Stain - Final 02/17/17 10:08 Leg - Right Wound Culture - Preliminary Klebsiella Pneumoniae Ssp Pneu Yeast Species - Constitutional Appears: No Acute Distress - Head Exam Head Exam: NORMAL INSPECTION - Eye Exam Additional comments: Left eye still with conjunctival injection. - ENT Exam ENT Exam: Mucous Membranes Moist - Neck Exam Neck Exam: Normal Inspection Additional comments: Right subclavian Permacath intact. - Respiratory Exam Respiratory Exam: Clear to Ausculation Bilateral, NORMAL BREATHING PATTERN - Cardiovascular Exam Cardiovascular Exam: REGULAR RHYTHM, +S1, +S2 - GI/Abdominal Exam GI & Abdominal Exam: Soft, Normal Bowel Sounds - Extremities Exam Additional comments: R BK wound vac in place and dressing on this and right patella are intact. L femoral PICC line intact. - Neurological Exam Neurological Exam: Alert, Oriented x3 - Psychiatric Exam Psychiatric exam: Normal Affect, Normal Mood - Skin Skin Exam: Dry, Intact, Normal Color, Warm Assessment and Plan (1) Status post below knee amputation of right lower extremity Assessment & Plan: Patient is ready for acute rehab - will transfer on Sat 02/22. Status: Acute (2) Infection of amputation stump of right lower extremity Assessment & Plan: Persistence of postive culture for MDR Klebsiella pn. is worrisome. Dr. Lemon is looking into this. Status: Acute (3) ESRD (end stage renal disease) on dialysis Assessment & Plan: stable. Status: Chronic (4) DM type 2 (diabetes mellitus, type 2) Assessment & Plan: Doing well on oral Prandin only. Status: Chronic (5) Elevated liver enzymes Assessment & Plan: Will repeat these on 02/24. Status: Acute (6) Seizure disorder Assessment & Plan: Controlled. Not due for Lamictal increase until 02/25. 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 Hector cohen Status: Acute (11) Gallstones without obstruction of gallbladder Status: Acute
[2017-02-20] MEDS: Santyl Collagenase OINTMENT TOP SCH (12:39)
[2017-02-20] MEDS: Sodium Chloride 0.45% 1,000 ML IV SCH (16:44)
--- NOTE | 2017-02-20 17:51 | CP.PCM.PN ---
Subjective - Date & Time of Evaluation Date of Evaluation: 02/20/17 Time of Evaluation: 17:48 - Subjective Subjective: Patient seen in room. In good spirits, working hard. At this point she is now stable to participate in more advanced rehab. Initially went to TCU given multiple medical complications and severe deconditioning would not have been able to tolerate the required 3 hours of PT/OT in acute rehab. Again, she has worked hard and was independent in many activities prior to right BKA. Still on wound vac. I am recommending acute inpatient rehabilitation. She may require ALFONZO on discharge, but given her young age, medical comorbidites and prior level of function it is medically necessary to try and advance her in acute rehab Objective - Vital Signs/Intake and Output Vital Signs (last 24 hours): Temp Pulse Resp BP Pulse Ox 97.3 F L 103 H 20 135/92 H 99 02/20/17 16:44 02/20/17 16:44 02/20/17 16:44 02/20/17 16:44 02/20/17 16:44 - Medications Medications: Current Medications Acetaminophen (Tylenol 325mg Tab) 650 mg PO Q4 PRN PRN Reason: Fever >100.4 F Acetaminophen (Tylenol 325mg Tab) 650 mg PO Q4 PRN PRN Reason: Pain, Mild (1-3) Apixaban (Eliquis) 5 mg PO BID [facility] PRN Reason: Protocol Last Admin: 02/20/17 16:42 Dose: 5 mg Aspirin (Ecotrin) 81 mg PO DAILY [facility] Last Admin: 02/20/17 08:34 Dose: 81 mg Atorvastatin Calcium (Lipitor) 40 mg PO DAILY [facility] Last Admin: 02/20/17 08:35 Dose: 40 mg Calcitriol (Rocaltrol) 0.25 mcg PO DAILY [facility] Last Admin: 02/20/17 08:33 Dose: 0.25 mcg Calcium Carbonate (Oscal) 500 mg PO BIDWM [facility] Last Admin: 02/20/17 16:42 Dose: 500 mg Collagenase (Santyl) 1 applic TOP DAILY [facility] Last Admin: 02/20/17 12:39 Dose: 1 applic Docusate Sodium (Colace) 100 mg PO BID [facility] Last Admin: 02/20/17 16:41 Dose: 100 mg Epoetin Tha (Procrit) 4,000 unit SC F [facility] Last Admin: 02/19/17 16:55 Dose: 4,000 unit Ergocalciferol (Drisdol 50,000 Intl Units Cap) 1 cap PO Q7D [facility] Last Admin: 02/14/17 08:34 Dose: 1 cap Fluconazole (Diflucan) 100 mg PO DAILY [facility] Last Admin: 02/20/17 08:34 Dose: 100 mg Gabapentin (Neurontin) 300 mg PO TID [facility] Last Admin: 02/20/17 16:43 Dose: 300 mg Hydromorphone HCl (Dilaudid) 2 mg PO Q4 PRN PRN Reason: Pain, moderate (4-7) Last Admin: 02/20/17 16:40 Dose: 2 mg Hydromorphone HCl (Dilaudid) 1 mg IVP Q4 PRN PRN Reason: Pain, severe (8-10) Last Admin: 02/20/17 08:27 Dose: 1 mg Sodium Chloride (Sodium Chloride 0.45%) 1,000 mls @ 10 mls/hr IV .Q24H [facility] Last Admin: 02/20/17 16:44 Dose: Not Given Ceftazidime/Avibactam 0.94 gm/ (Sodium Chloride) 100 mls @ 50 mls/hr IVPB MWF@ 1700 [facility] Last Admin: 02/19/17 16:57 Dose: 50 mls/hr Gentamicin Sulfate 30 mg/ (Sodium Chloride) 50.75 mls @ 101.5 mls/hr IVPB MWF [facility] PRN Reason: Protocol Last Admin: 02/19/17 16:58 Dose: 101.5 mls/hr Vancomycin HCl 250 mg/ Sodium (Chloride) 100 mls @ 100 mls/hr IVPB MWF@1700 [facility] PRN Reason: Protocol Last Admin: 02/19/17 16:57 Dose: 100 mls/hr Lactobacillus Acidophilus (Bacid Acidophilus) 1 cap PO BID [facility] Last Admin: 02/20/17 16:40 Dose: 1 cap Lamotrigine (Lamictal) 50 mg PO Q12 [facility] Last Admin: 02/20/17 08:32 Dose: 50 mg Loratadine (Claritin) 10 mg PO DAILY [facility] Last Admin: 02/20/17 08:31 Dose: 10 mg Metoprolol Tartrate (Lopressor) 25 mg PO Q12 [facility] Last Admin: 02/20/17 08:33 Dose: 25 mg Ondansetron HCl (Zofran Inj) 4 mg IVP Q6 PRN PRN Reason: Nausea/Vomiting Pantoprazole Sodium (Protonix Ec Tab) 40 mg PO DAILY [facility] Last Admin: 02/20/17 08:34 Dose: 40 mg Repaglinide (Prandin) 0.5 mg PO TIDAC [facility] Last Admin: 02/20/17 16:43 Dose: 0.5 mg Sennosides (Senokot Tab) 25.8 mg PO HS [facility] Last Admin: 02/19/17 21:15 Dose: 25.8 mg Sevelamer HCl (Renagel) 1,600 mg PO TID [facility] Last Admin: 02/20/17 16:41 Dose: 1,600 mg Simethicone (Mylicon Chew Tab) 80 mg PO TID [facility] Last Admin: 02/20/17 16:41 Dose: 80 mg Sodium Chloride (Sodium Chloride 0.45%) 500 ml IV CONT [facility] Tobramycin Sulfate (Tobrex 0.3% [facility]) 1 drop OU QID [facility] Last Admin: 02/20/17 16:36 Dose: 1 drop Vitamin B Complex/Vit C/Folic Acid (Nephro-Ajay) 1 tab PO DAILY [facility] Last Admin: 02/20/17 08:31 Dose: 1 tab - Labs Labs: 02/17/17 07:57 02/17/17 07:57
--- NOTE | 2017-02-20 22:15 | PN ---
ENDO FOLLOWUP NOTE LOCATION: Room 706. SUBJECTIVE: This is a 46-year-old female with recent uncontrolled type 2 insulin-requiring diabetes, now taken off all insulin therapy and only on oral hypoglycemic therapy as given. Her glycemic levels are fluctuating, but much improved at this time and the latest glucose levels have ranged from 94-125 mg/dL. She is undergoing also IV antibiotic management for ongoing osteomyelitis of the right below-knee amputation stump as noted. So, at this time, we will continue the very low dose oral hypoglycemic therapy as given with Prandin given as 0.5 mg p.o. t.i.d. with meals as ordered. We will titrate incrementally as indicated to optimize metabolic control. We will follow and advise accordingly. Irene Ambrose MD
[2017-02-21] MEDS: Multivitamin Vitamin B Complex (Nephro-Vite) Tab PO SCH (09:15)
[2017-02-21] MEDS: Ergocalciferol 50,000 Intl Units Cap PO SCH (09:16)
[2017-02-21] MEDS: Pantoprazole 40 mg EC Tab PO SCH (09:17)
[2017-02-21] MEDS: Lactobacillus Acidophilus 500 MU Cap PO SCH ×2 (09:17→17:09)
[2017-02-21] MEDS: Epoetin Alfa 4000 UNIT/ML Inj SC SCH (09:23)
[2017-02-21] MEDS: Tobramycin 0.3% OPHT SOLN OU SCH ×4 (09:42→22:01)
[2017-02-21] MEDS: Santyl Collagenase OINTMENT TOP SCH (09:43)
[2017-02-21] MEDS: Simethicone 80 mg Chewtab PO SCH ×3 (09:52→17:10)
[2017-02-21] MEDS: POLYETHYLENE GLYCOL 3350 17 GM/Dose PACKET PO SCH (12:17)
[2017-02-21] MEDS: Sodium Chloride 0.45% 1,000 ML IV SCH (12:17)
--- NOTE | 2017-02-21 16:39 | CP.PCM.PN ---
Subjective - Date & Time of Evaluation Date of Evaluation: 02/21/17 Time of Evaluation: 16:40 - Subjective Subjective: I D NOTE AWITING CULTURE FOR [facility]A MDR FOR AVYCAZ AND CEFTAZIDIME HAVE REPEATED TROUGH LEVELS CONTINUE SAME ANTIBIOTICS C SAME DOSES FOR TODAY WILL REVIEW TROUGH LEVELS AND RE EVALUATE Objective - Vital Signs/Intake and Output Vital Signs (last 24 hours): Temp Pulse Resp BP Pulse Ox 97.0 F L 110 H 20 168/93 H 99 02/21/17 08:51 02/21/17 09:18 02/21/17 08:51 02/21/17 09:18 02/21/17 08:51 - Medications Medications: Current Medications Acetaminophen (Tylenol 325mg Tab) 650 mg PO Q4 PRN PRN Reason: Fever >100.4 F Acetaminophen (Tylenol 325mg Tab) 650 mg PO Q4 PRN PRN Reason: Pain, Mild (1-3) Apixaban (Eliquis) 5 mg PO BID [facility] PRN Reason: Protocol Last Admin: 02/21/17 09:17 Dose: 5 mg Aspirin (Ecotrin) 81 mg PO DAILY [facility] Last Admin: 02/21/17 09:17 Dose: 81 mg Atorvastatin Calcium (Lipitor) 40 mg PO DAILY [facility] Last Admin: 02/21/17 09:18 Dose: 40 mg Calcitriol (Rocaltrol) 0.25 mcg PO DAILY [facility] Last Admin: 02/21/17 09:42 Dose: 0.25 mcg Calcium Carbonate (Oscal) 500 mg PO BIDWM [facility] Last Admin: 02/21/17 09:17 Dose: 500 mg Collagenase (Santyl) 1 applic TOP DAILY [facility] Last Admin: 02/21/17 09:43 Dose: 1 applic Docusate Sodium (Colace) 100 mg PO BID [facility] Last Admin: 02/21/17 09:16 Dose: 100 mg Epoetin Tha (Procrit) 4,000 unit SC MWF [facility] Last Admin: 02/21/17 09:23 Dose: 4,000 unit Ergocalciferol (Drisdol 50,000 Intl Units Cap) 1 cap PO Q7D [facility] Last Admin: 02/21/17 09:16 Dose: 1 cap Fluconazole (Diflucan) 100 mg PO DAILY [facility] Last Admin: 02/21/17 09:16 Dose: 100 mg Fluticasone Propionate (Flonase) 1 spr ALLAN BID [facility] Last Admin: 02/21/17 12:17 Dose: Not Given Gabapentin (Neurontin) 300 mg PO TID [facility] Last Admin: 02/21/17 12:17 Dose: Not Given Hydromorphone HCl (Dilaudid) 2 mg PO Q4 PRN PRN Reason: Pain, moderate (4-7) Last Admin: 02/20/17 21:52 Dose: 2 mg Hydromorphone HCl (Dilaudid) 1 mg IVP Q4 PRN PRN Reason: Pain, severe (8-10) Last Admin: 02/20/17 08:27 Dose: 1 mg Sodium Chloride (Sodium Chloride 0.45%) 1,000 mls @ 10 mls/hr IV .Q24H [facility] Last Admin: 02/21/17 12:17 Dose: Not Given Ceftazidime/Avibactam 0.94 gm/ (Sodium Chloride) 100 mls @ 50 mls/hr IVPB MWF@ 1700 [facility] Last Admin: 02/19/17 16:57 Dose: 50 mls/hr Gentamicin Sulfate 30 mg/ (Sodium Chloride) 50.75 mls @ 101.5 mls/hr IVPB MWF [facility] PRN Reason: Protocol Last Admin: 02/19/17 16:58 Dose: 101.5 mls/hr Vancomycin HCl 250 mg/ Sodium (Chloride) 100 mls @ 100 mls/hr IVPB MWF@1700 [facility] PRN Reason: Protocol Last Admin: 02/19/17 16:57 Dose: 100 mls/hr Lactobacillus Acidophilus (Bacid Acidophilus) 1 cap PO BID [facility] Last Admin: 02/21/17 09:17 Dose: 1 cap Lamotrigine (Lamictal) 50 mg PO Q12 [facility] Last Admin: 02/21/17 09:15 Dose: 50 mg Loratadine (Claritin) 10 mg PO DAILY [facility] Last Admin: 02/21/17 09:17 Dose: 10 mg Metoprolol Tartrate (Lopressor) 25 mg PO Q12 [facility] Last Admin: 02/21/17 09:18 Dose: 25 mg Ondansetron HCl (Zofran Inj) 4 mg IVP Q6 PRN PRN Reason: Nausea/Vomiting Pantoprazole Sodium (Protonix Ec Tab) 40 mg PO DAILY [facility] Last Admin: 02/21/17 09:17 Dose: 40 mg Polyethylene Glycol (Miralax) 17 gm PO DAILYWM@1200 [facility] Last Admin: 02/21/17 12:17 Dose: Not Given Repaglinide (Prandin) 0.5 mg PO TIDAC [facility] Last Admin: 02/21/17 12:17 Dose: Not Given Sevelamer HCl (Renagel) 1,600 mg PO TID [facility] Last Admin: 02/21/17 12:17 Dose: Not Given Simethicone (Mylicon Chew Tab) 80 mg PO TID [facility] Last Admin: 02/21/17 12:17 Dose: Not Given Sodium Chloride (Sodium Chloride 0.45%) 500 ml IV CONT [facility] Tobramycin Sulfate (Tobrex 0.3% [facility]) 1 drop OU QID [facility] Last Admin: 02/21/17 12:17 Dose: Not Given Vitamin B Complex/Vit C/Folic Acid (Nephro-Ajay) 1 tab PO DAILY [facility] Last Admin: 02/21/17 09:15 Dose: 1 tab - Labs Labs: 02/17/17 07:57 02/17/17 07:57
[2017-02-21] MEDS: SODIUM CHLORIDE 0.9% IVPB SCH (19:48)
[2017-02-21] MEDS: GENTAMICIN IVPB SCH (19:48)
--- NOTE | 2017-02-21 20:41 | PN ---
ENDOCRINOLOGY FOLLOWUP NOTE DATE: LOCATION: Room #706, [facility]. SUBJECTIVE: This is a 46-year-old female with recent uncontrolled type 2 insulin-requiring diabetes, now being followed closely for metabolic management. She has been taken off all insulin therapy at this time because of supervening hypoglycemic levels as noted and she has stabilized now on just a very low dose, oral hypoglycemic drug therapy as given. Her latest glucose levels have ranged from 94 to 125 and 159 mg/dL. So, at this time, we will continue the Prandin given as 0.5 mg p.o. t.i.d. before meals as ordered. We will titrate incremental as indicated to optimize metabolic control. We will follow and advise accordingly. Irene Ambrose MD
[2017-02-21] MEDS: Vancomycin 250 MG in Sodium Chloride 0.9% 100 ML IVPB SCH (22:02)
[2017-02-22] MEDS: Lactobacillus Acidophilus 500 MU Cap PO SCH ×2 (09:05→16:48)
[2017-02-22] MEDS: Simethicone 80 mg Chewtab PO SCH ×3 (09:05→16:52)
[2017-02-22] MEDS: Pantoprazole 40 mg EC Tab PO SCH (09:10)
[2017-02-22] MEDS: Tobramycin 0.3% OPHT SOLN OU SCH ×2 (09:10→12:09)
[2017-02-22] MEDS: Multivitamin Vitamin B Complex (Nephro-Vite) Tab PO SCH (09:11)
[2017-02-22] MEDS: POLYETHYLENE GLYCOL 3350 17 GM/Dose PACKET PO SCH ×4 (09:22→22:05)
[2017-02-22] MEDS: Santyl Collagenase OINTMENT TOP SCH (12:12)
--- NOTE | 2017-02-22 13:18 | PN ---
ENDO FOLLOWUP NOTE DATE: LOCATION: Room 70[facility]. SUBJECTIVE: This is a 46-year-old female with recent uncontrolled type 2 insulin-requiring diabetes, now being followed closely for metabolic management. Her glycemic levels are fluctuating, but much improved at this time and the latest glucose levels have ranged from 159-185 mg/dL. Her latest chemistries are pending at this time and the last one recorded is showing a BUN of 61, sodium 137, potassium 5.5, chloride 99, CO2 of 23, glucose 78, and creatinine 6.8. So, at this time, we will modify and increase her Prandin to 1 mg p.o. t.i.d. before meals as ordered. We will titrate incremental as indicated to optimize metabolic control. We will obtain serial chemistries also and adjust her dose regimen accordingly. We will hold off the resumption of any basal and/or bolus insulin at this time as her glycemic levels have remarkably improved with the recent discontinuation of the basal and bolus insulin regimen as given. She has ongoing IV antibiotic for now for management of right below-knee amputation osteomyelitis. We will follow and advise accordingly. Irene Ambrose MD
--- NOTE | 2017-02-22 13:44 | CP.PCM.PN ---
Subjective - Date & Time of Evaluation Date of Evaluation: 02/22/17 Time of Evaluation: 13:41 - Subjective Subjective: Patient has still not had a bowel movement, but only started Miralax this morning. She continues on Senna and Colace. Will give additional dose of Miralax this evening added to Nepro. Thereafter she should get the Miralax and Nepro every evening. Because of bed availability, patient will go for outpatient hemodialysis on Mon 02/24 and the be transferred to acute rehabilitation floor upon return. Patient complains of discomfort in left eye, present since LASER treatment for diabetic retinopathy. Tobramycin eye drops were started because of conjunctival injection. Call place to Dr. Hernandez, telegraph equipment maintainer, who recommended Tobradex ophthal susp. i gtt ou q6h. So ordered. Glucoses 94 to 185, on Prandin only. Dr. Lemon's ID note appreciated. Gentamicin trough = 0.7 (desired is 0 - 0.9) and vancomycin trough is 8.7 mcg/ml (desired is 5-10_. Dosing of IV gentamicin remains at 30mg MWF and vancomycin 250mg MWF. Abycaz continues at 0.94 mg IV q MWF Wound vac to be changed on 02/25. Daily dressing of right patella is done daily with applicaton of Santyl. No seizures. On Lamictal, which is due to be increased this coming week. No clotting - on Eliquis and Aspirin. Claritin 10mg po daily and fluticasone nasal spray bid were started for rhinitis due to allergy vs upper respiratory infection symptoms. Objective - Vital Signs/Intake and Output Vital Signs (last 24 hours): Temp Pulse Resp BP Pulse Ox 98.1 F 100 H 20 148/96 H 93 L 02/22/17 07:54 02/22/17 09:08 02/22/17 07:54 02/22/17 09:08 02/22/17 07:54 - Medications Medications: Current Medications Acetaminophen (Tylenol 325mg Tab) 650 mg PO Q4 PRN PRN Reason: Fever >100.4 F Acetaminophen (Tylenol 325mg Tab) 650 mg PO Q4 PRN PRN Reason: Pain, Mild (1-3) Apixaban (Eliquis) 5 mg PO BID [facility] PRN Reason: Protocol Last Admin: 02/22/17 09:07 Dose: 5 mg Aspirin (Ecotrin) 81 mg PO DAILY [facility] Last Admin: 02/22/17 09:09 Dose: 81 mg Atorvastatin Calcium (Lipitor) 40 mg PO DAILY [facility] Last Admin: 02/22/17 09:07 Dose: 40 mg Calcitriol (Rocaltrol) 0.25 mcg PO DAILY [facility] Last Admin: 02/22/17 09:09 Dose: 0.25 mcg Calcium Carbonate (Oscal) 500 mg PO BIDWM [facility] Last Admin: 02/22/17 09:06 Dose: 500 mg Collagenase (Santyl) 1 applic TOP DAILY [facility] Last Admin: 02/22/17 12:12 Dose: 1 applic Docusate Sodium (Colace) 100 mg PO BID [facility] Last Admin: 02/22/17 09:06 Dose: 100 mg Epoetin Tha (Procrit) 4,000 unit SC [facility] Last Admin: 02/21/17 09:23 Dose: 4,000 unit Ergocalciferol (Drisdol 50,000 Intl Units Cap) 1 cap PO Q7D [facility] Last Admin: 02/21/17 09:16 Dose: 1 cap Fluconazole (Diflucan) 100 mg PO DAILY [facility] Last Admin: 02/22/17 09:06 Dose: 100 mg Fluticasone Propionate (Flonase) 1 spr ALLAN BID [facility] Last Admin: 02/22/17 09:07 Dose: 1 spr Gabapentin (Neurontin) 300 mg PO TID [facility] Last Admin: 02/22/17 12:08 Dose: 300 mg Hydromorphone HCl (Dilaudid) 2 mg PO Q4 PRN PRN Reason: Pain, moderate (4-7) Last Admin: 02/21/17 18:58 Dose: 2 mg Sodium Chloride (Sodium Chloride 0.45%) 1,000 mls @ 10 mls/hr IV .Q24H [facility] Last Admin: 02/21/17 12:17 Dose: Not Given Ceftazidime/Avibactam 0.94 gm/ (Sodium Chloride) 100 mls @ 50 mls/hr IVPB MWF@ 1700 [facility] Last Admin: 02/21/17 18:59 Dose: 50 mls/hr Gentamicin Sulfate 30 mg/ (Sodium Chloride) 50.75 mls @ 101.5 mls/hr IVPB [facility] PRN Reason: Protocol Last Admin: 02/21/17 19:48 Dose: 101.5 mls/hr Vancomycin HCl 250 mg/ Sodium (Chloride) 100 mls @ 100 mls/hr IVPB MWF@1700 [facility] PRN Reason: Protocol Last Admin: 02/21/17 22:02 Dose: 100 mls/hr Lactobacillus Acidophilus (Bacid Acidophilus) 1 cap PO BID [facility] Last Admin: 02/22/17 09:05 Dose: 1 cap Lamotrigine (Lamictal) 50 mg PO Q12 [facility] Last Admin: 02/22/17 09:07 Dose: 50 mg Loratadine (Claritin) 10 mg PO DAILY [facility] Last Admin: 02/22/17 09:07 Dose: 10 mg Metoprolol Tartrate (Lopressor) 25 mg PO Q12 [facility] Last Admin: 02/22/17 09:08 Dose: 25 mg Ondansetron HCl (Zofran Inj) 4 mg IVP Q6 PRN PRN Reason: Nausea/Vomiting Pantoprazole Sodium (Protonix Ec Tab) 40 mg PO DAILY [facility] Last Admin: 02/22/17 09:10 Dose: 40 mg Polyethylene Glycol (Miralax) 17 gm PO DAILYWM@1200 [facility] Last Admin: 02/22/17 12:10 Dose: Not Given Repaglinide (Prandin) 1 mg PO TIDAC [facility] Last Admin: 02/22/17 12:09 Dose: 1 mg Sevelamer HCl (Renagel) 1,600 mg PO TID [facility] Last Admin: 02/22/17 12:08 Dose: 1,600 mg Simethicone (Mylicon Chew Tab) 80 mg PO TID [facility] Last Admin: 02/22/17 12:11 Dose: 80 mg Sodium Chloride (Sodium Chloride 0.45%) 500 ml IV CONT [facility] Tobramycin Sulfate (Tobrex 0.3% [facility]) 1 drop OU QID [facility] Last Admin: 02/22/17 12:09 Dose: 1 drop Vitamin B Complex/Vit C/Folic Acid (Nephro-Ajay) 1 tab PO DAILY [facility] Last Admin: 02/22/17 09:11 Dose: 1 tab - Labs Labs: 02/17/17 07:57 02/17/17 07:57 - Constitutional Appears: No Acute Distress - Head Exam Head Exam: NORMAL INSPECTION - Eye Exam Additional comments: Conjunctival inflammation left eye. No vision change. - ENT Exam ENT Exam: Mucous Membranes Moist - Neck Exam Neck Exam: Normal Inspection Additional comments: Right subclavian Permacath intact. - Respiratory Exam Respiratory Exam: Clear to Ausculation Bilateral, NORMAL BREATHING PATTERN - Cardiovascular Exam Cardiovascular Exam: REGULAR RHYTHM, +S1 - GI/Abdominal Exam GI & Abdominal Exam: Soft - Extremities Exam Additional comments: Wound vac R BK wound intact. R patellar wound shows increased granulation tissue and smaller area of necrotic tissue. Redressed. - Back Exam Back Exam: NORMAL INSPECTION - Neurological Exam Neurological Exam: Alert, Oriented x3 - Skin Skin Exam: Dry, Normal Color, Warm Assessment and Plan (1) Status post below knee amputation of right lower extremity Assessment & Plan: Making nice progress in occupationa and physical therapy. Status: Acute (2) Infection of amputation stump of right lower extremity Assessment & Plan: Dr. Lemon is investigating the antibiotic coverage and will make any needed changes. So, far the wounds continue to heal. Status: Acute (3) ESRD (end stage renal disease) on dialysis Status: Chronic (4) DM type 2 (diabetes mellitus, type 2) Assessment & Plan: Stable on oral medications. Not clear why previous need for insulin occurred. ??? Status: Chronic (5) Elevated liver enzymes Assessment & Plan: Will check labs on Friday. 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
[2017-02-22] MEDS: Dexamethasone/Tobramycin Ophth Susp OU SCH ×2 (14:30→21:24)
--- NOTE | 2017-02-22 16:06 | CP.PCM.PN ---
Subjective - Date & Time of Evaluation Date of Evaluation: 02/22/17 Time of Evaluation: 16:00 - Subjective Subjective: I D NOTE VANCOMYCIN TROUGH:8.7 GENTAMICIN TROUGH:0.7 \HAVE INCREASED DOSE OF GENTAMICIN TO 40 MG IVPB POST HD ON MWF [facility] MDR ONLY SENSITIVE TO GENTAMICIN AND AVYCAZ WILL CONTINUE ALL 3 ANTIBIOTICS WHILE MONITORING VANCOMYCIN/GENTAMICIN TROUGH LEVELS Objective - Vital Signs/Intake and Output Vital Signs (last 24 hours): Temp Pulse Resp BP Pulse Ox 98.1 F 100 H 20 148/96 H 93 L 02/22/17 07:54 02/22/17 09:08 02/22/17 07:54 02/22/17 09:08 02/22/17 07:54 - Medications Medications: Current Medications Acetaminophen (Tylenol 325mg Tab) 650 mg PO Q4 PRN PRN Reason: Fever >100.4 F Acetaminophen (Tylenol 325mg Tab) 650 mg PO Q4 PRN PRN Reason: Pain, Mild (1-3) Apixaban (Eliquis) 5 mg PO BID [facility] PRN Reason: Protocol Last Admin: 02/22/17 09:07 Dose: 5 mg Aspirin (Ecotrin) 81 mg PO DAILY [facility] Last Admin: 02/22/17 09:09 Dose: 81 mg Atorvastatin Calcium (Lipitor) 40 mg PO DAILY [facility] Last Admin: 02/22/17 09:07 Dose: 40 mg Calcitriol (Rocaltrol) 0.25 mcg PO DAILY [facility] Last Admin: 02/22/17 09:09 Dose: 0.25 mcg Calcium Carbonate (Oscal) 500 mg PO BIDWM [facility] Last Admin: 02/22/17 09:06 Dose: 500 mg Collagenase (Santyl) 1 applic TOP DAILY [facility] Last Admin: 02/22/17 12:12 Dose: 1 applic Docusate Sodium (Colace) 100 mg PO BID [facility] Last Admin: 02/22/17 09:06 Dose: 100 mg Epoetin Tha (Procrit) 4,000 unit [facility] Last Admin: 02/21/17 09:23 Dose: 4,000 unit Ergocalciferol (Drisdol 50,000 Intl Units Cap) 1 cap PO Q7D [facility] Last Admin: 02/21/17 09:16 Dose: 1 cap Fluconazole (Diflucan) 100 mg PO DAILY [facility] Last Admin: 02/22/17 09:06 Dose: 100 mg Fluticasone Propionate (Flonase) 1 spr ALLAN BID [facility] Last Admin: 02/22/17 09:07 Dose: 1 spr Gabapentin (Neurontin) 300 mg PO TID [facility] Last Admin: 02/22/17 12:08 Dose: 300 mg Hydromorphone HCl (Dilaudid) 2 mg PO Q4 PRN PRN Reason: Pain, moderate (4-7) Last Admin: 02/21/17 18:58 Dose: 2 mg Sodium Chloride (Sodium Chloride 0.45%) 1,000 mls @ 10 mls/hr IV .Q24H [facility] Last Admin: 02/21/17 12:17 Dose: Not Given Ceftazidime/Avibactam 0.94 gm/ (Sodium Chloride) 100 mls @ 50 mls/hr IVPB MWF@ 1700 [facility] Last Admin: 02/21/17 18:59 Dose: 50 mls/hr Vancomycin HCl 250 mg/ Sodium (Chloride) 100 mls @ 100 mls/hr IVPB MWF@1700 [facility] PRN Reason: Protocol Last Admin: 02/21/17 22:02 Dose: 100 mls/hr Gentamicin Sulfate 40 mg/ (Sodium Chloride) 101 mls @ 100 mls/hr IVPB MWF [facility] PRN Reason: Protocol Lactobacillus Acidophilus (Bacid Acidophilus) 1 cap PO BID [facility] Last Admin: 02/22/17 09:05 Dose: 1 cap Lamotrigine (Lamictal) 50 mg PO Q12 [facility] Last Admin: 02/22/17 09:07 Dose: 50 mg Loratadine (Claritin) 10 mg PO DAILY [facility] Last Admin: 02/22/17 09:07 Dose: 10 mg Metoprolol Tartrate (Lopressor) 25 mg PO Q12 [facility] Last Admin: 02/22/17 09:08 Dose: 25 mg Ondansetron HCl (Zofran Inj) 4 mg IVP Q6 PRN PRN Reason: Nausea/Vomiting Pantoprazole Sodium (Protonix Ec Tab) 40 mg PO DAILY [facility] Last Admin: 02/22/17 09:10 Dose: 40 mg Polyethylene Glycol (Miralax) 17 gm PO DAILY[facility]@1200 [facility] Last Admin: 02/22/17 12:10 Dose: Not Given Repaglinide (Prandin) 1 mg PO TIDAC [facility] Last Admin: 02/22/17 12:09 Dose: 1 mg Sevelamer HCl (Renagel) 1,600 mg PO TID [facility] Last Admin: 02/22/17 12:08 Dose: 1,600 mg Simethicone (Mylicon Chew Tab) 80 mg PO TID [facility] Last Admin: 02/22/17 12:11 Dose: 80 mg Sodium Chloride (Sodium Chloride 0.45%) 500 ml IV CONT [facility] Tobramycin/Dexamethasone (Tobradex Opht Susp) 1 drop OU Q6H [facility] Vitamin B Complex/Vit C/Folic Acid (Nephro-Ajay) 1 tab PO DAILY [facility] Last Admin: 02/22/17 09:11 Dose: 1 tab - Labs Labs: 02/17/17 07:57 02/17/17 07:57
[2017-02-22] MEDS: Sodium Chloride 0.45% 1,000 ML IV SCH (16:52)
[2017-02-23] MEDS: Dexamethasone/Tobramycin Ophth Susp OU SCH ×4 (03:05→21:45)
[2017-02-23 07:06] LABS: BASO % 0.7 % (0.0-2.0); EOS # 0.6 K/uL (0.0-0.7); EOS % 9.6 % (0.0-4.0); HEMATOCRIT 31.2 % (34.0-47.0); LYMPH # 1.5 K/uL (1.0-4.3); LYMPH % 24.2 % (20.0-40.0); MEAN CELL VOLUME 93.2 fl (81.0-99.0); MEAN CORPUSCULAR HEMOGLOBIN 29.2 pg (27.0-31.0); MEAN CORPUSCULAR HGB CONC 31.3 g/dL (33.0-37.0); MEAN PLATELET VOLUME 10.8 fl (7.2-11.7); MONO # 0.7 K/uL (0.0-0.8); MONO % 12.1 % (0.0-10.0); NEUT # 3.3 K/uL (1.8-7.0); NEUT % 53.4 % (50.0-75.0); NRBC % 0.1 % (0.0-0.0); RED CELL DISTRIBUTION WIDTH 16.3 % (11.5-14.5); WHITE BLOOD COUNT 6.1 K/uL (4.8-10.8)
[2017-02-23 07:28] LABS: BILIRUBIN,TOTAL 0.2 mg/dl (0.2-1.3); CALCIUM 8.7 mg/dL (8.4-10.2); POTASSIUM 4.8 MMOL/L (3.6-5.0); TOTAL PROTEIN 7.3 G/DL (6.3-8.2)
[2017-02-23 07:35] LABS: VANCOMYCIN RANDOM 10.2 ug/mL
[2017-02-23] MEDS: Pantoprazole 40 mg EC Tab PO SCH (09:07)
[2017-02-23] MEDS: Multivitamin Vitamin B Complex (Nephro-Vite) Tab PO SCH (09:07)
[2017-02-23] MEDS: Santyl Collagenase OINTMENT TOP SCH (09:10)
[2017-02-23] MEDS: Simethicone 80 mg Chewtab PO SCH ×3 (09:18→16:11)
[2017-02-23] MEDS: Lactobacillus Acidophilus 500 MU Cap PO SCH ×2 (10:35→16:08)
[2017-02-23] MEDS: Sodium Chloride 0.45% 1,000 ML IV SCH (13:14)
--- NOTE | 2017-02-23 13:27 | PN ---
ENDO FOLLOWUP NOTE DATE: LOCATION: Room 706. SUBJECTIVE: This is a 46-year-old female with recent uncontrolled type 2 insulin-requiring diabetes now being followed closely for metabolic management. Her glycemic levels are fluctuating, but much improved at this time and the latest glucose levels have ranged from 143-188 mg/dL. Her latest chemistry showed a BUN of 55, sodium 139, potassium 4.8, chloride 100, CO2 of 24, glucose 139, and creatinine 5.8. So, at this time, we will continue the low-dose oral hypoglycemic drug therapy as given with Prandin given as 1 mg p.o. t.i.d. before meals as ordered. We will titrate incremental as indicated to optimize metabolic control. We will follow and advise accordingly. Irene Amrbose MD
[2017-02-23] MEDS: POLYETHYLENE GLYCOL 3350 17 GM/Dose PACKET PO SCH (21:45)
[2017-02-24] MEDS: Dexamethasone/Tobramycin Ophth Susp OU SCH ×3 (02:38→15:46)
[2017-02-24] MEDS: Lactobacillus Acidophilus 500 MU Cap PO SCH ×2 (09:12→16:37)
[2017-02-24] MEDS: Pantoprazole 40 mg EC Tab PO SCH (09:13)
[2017-02-24] MEDS: Epoetin Alfa 4000 UNIT/ML Inj SC SCH (09:15)
[2017-02-24] MEDS: Multivitamin Vitamin B Complex (Nephro-Vite) Tab PO SCH (09:16)
[2017-02-24] MEDS: Simethicone 80 mg Chewtab PO SCH ×3 (09:17→16:37)
[2017-02-24] MEDS: Santyl Collagenase OINTMENT TOP SCH (09:19)
[2017-02-24] MEDS ORDERED: Epoetin Alfa 20000 UNIT/ML Inj SC SCH (10:59)
--- NOTE | 2017-02-24 11:01 | CP.PCM.PN ---
Subjective - Date & Time of Evaluation Date of Evaluation: 02/24/17 Time of Evaluation: 11:00 - Subjective Subjective: [place] [facility] [place] Hemoglobin noted to go down 9.8 Increase EPO to 6000 from 4000 Also we will check serum iron and iron saturation and ferritin level Objective - Vital Signs/Intake and Output Vital Signs (last 24 hours): Temp Pulse Resp BP Pulse Ox 96.1 F L 102 H 20 176/79 H 96 02/24/17 09:00 02/24/17 09:13 02/24/17 09:00 02/24/17 09:13 02/24/17 09:00 - Medications Medications: Current Medications Acetaminophen (Tylenol 325mg Tab) 650 mg PO Q4 PRN PRN Reason: Fever >100.4 F Acetaminophen (Tylenol 325mg Tab) 650 mg PO Q4 PRN PRN Reason: Pain, Mild (1-3) Apixaban (Eliquis) 5 mg PO BID [facility] PRN Reason: Protocol Last Admin: 02/24/17 09:14 Dose: 5 mg Aspirin (Ecotrin) 81 mg PO DAILY [facility] Last Admin: 02/24/17 09:14 Dose: 81 mg Atorvastatin Calcium (Lipitor) 40 mg PO DAILY [facility] Last Admin: 02/24/17 09:14 Dose: 40 mg Calcitriol (Rocaltrol) 0.25 mcg PO DAILY [facility] Last Admin: 02/24/17 09:14 Dose: 0.25 mcg Calcium Carbonate (Oscal) 500 mg PO BIDWM [facility] Last Admin: 02/24/17 09:14 Dose: 500 mg Collagenase (Santyl) 1 applic TOP DAILY [facility] Last Admin: 02/24/17 09:19 Dose: Not Given Docusate Sodium (Colace) 100 mg PO BID [facility] Last Admin: 02/24/17 09:13 Dose: 100 mg Epoetin Tha (Procrit) 4,000 unit SC MWF [facility] Last Admin: 02/24/17 09:15 Dose: 4,000 unit Ergocalciferol (Drisdol 50,000 Intl Units Cap) 1 cap PO Q7D [facility] Last Admin: 02/21/17 09:16 Dose: 1 cap Fluconazole (Diflucan) 100 mg PO DAILY [facility] Last Admin: 02/24/17 09:13 Dose: 100 mg Fluticasone Propionate (Flonase) 1 spr ALLAN BID [facility] Last Admin: 02/24/17 09:14 Dose: 1 spr Gabapentin (Neurontin) 300 mg PO TID [facility] Last Admin: 02/24/17 09:12 Dose: 300 mg Hydromorphone HCl (Dilaudid) 2 mg PO Q4 PRN PRN Reason: Pain, moderate (4-7) Last Admin: 02/24/17 09:28 Dose: 2 mg Sodium Chloride (Sodium Chloride 0.45%) 1,000 mls @ 10 mls/hr IV .Q24H [facility] Last Admin: 02/23/17 13:14 Dose: Not Given Ceftazidime/Avibactam 0.94 gm/ (Sodium Chloride) 100 mls @ 50 mls/hr IVPB MWF@ 1700 [facility] Last Admin: 02/21/17 18:59 Dose: 50 mls/hr Vancomycin HCl 250 mg/ Sodium (Chloride) 100 mls @ 100 mls/hr IVPB MWF@1700 [facility] PRN Reason: Protocol Last Admin: 02/21/17 22:02 Dose: 100 mls/hr Gentamicin Sulfate 40 mg/ (Sodium Chloride) 101 mls @ 100 mls/hr IVPB MWF [facility] PRN Reason: Protocol Last Admin: 02/24/17 10:29 Dose: Not Given Lactobacillus Acidophilus (Bacid Acidophilus) 1 cap PO BID [facility] Last Admin: 02/24/17 09:12 Dose: 1 cap Lamotrigine (Lamictal) 50 mg PO Q12 [facility] Last Admin: 02/24/17 09:13 Dose: 50 mg Loratadine (Claritin) 10 mg PO DAILY [facility] Last Admin: 02/24/17 09:12 Dose: 10 mg Metoprolol Tartrate (Lopressor) 25 mg PO Q12 [facility] Last Admin: 02/24/17 09:13 Dose: 25 mg Ondansetron HCl (Zofran Inj) 4 mg IVP Q6 PRN PRN Reason: Nausea/Vomiting Pantoprazole Sodium (Protonix Ec Tab) 40 mg PO DAILY [facility] Last Admin: 02/24/17 09:13 Dose: 40 mg Polyethylene Glycol (Miralax) 17 gm PO HS [facility] Last Admin: 02/23/17 21:45 Dose: 17 gm Repaglinide (Prandin) 1 mg PO TIDAC [facility] Last Admin: 02/24/17 09:12 Dose: 1 mg Sevelamer HCl (Renagel) 1,600 mg PO TID [facility] Last Admin: 02/24/17 09:15 Dose: 1,600 mg Simethicone (Mylicon Chew Tab) 80 mg PO TID [facility] Last Admin: 02/24/17 09:17 Dose: 80 mg Sodium Chloride (Sodium Chloride 0.45%) 500 ml IV CONT [facility] Tobramycin/Dexamethasone (Tobradex Opht Susp) 1 drop OU Q6H [facility] Last Admin: 02/24/17 09:15 Dose: 1 drop Vitamin B Complex/Vit C/Folic Acid (Nephro-Ajay) 1 tab PO DAILY [facility] Last Admin: 02/24/17 09:16 Dose: 1 tab - Labs Labs: 02/23/17 06:00 02/23/17 06:00 Assessment and Plan (1) Chronic kidney disease requiring chronic dialysis Status: Acute (2) Diabetic retinopathy Status: Acute (3) Gallstones without obstruction of gallbladder Status: Acute (4) Infection of amputation stump of right lower extremity Status: Acute (5) 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
[2017-02-24] MEDS: Sodium Chloride 0.45% 1,000 ML IV SCH (14:13)
[2017-02-24] MEDS: Vancomycin 250 MG in Sodium Chloride 0.9% 100 ML IVPB SCH (17:23)
[2017-02-24] MEDS ORDERED: ONDANSETRON 4 MG IVP PRN (19:06)
[2017-02-24] MEDS ORDERED: Ergocalciferol 50,000 Intl Units Cap PO SCH (19:15)
--- NOTE | 2017-02-24 20:12 | PN ---
ENDO FOLLOWUP NOTE DATE: LOCATION: Room #706, [facility]. SUBJECTIVE: This is a 46-year-old female with recent uncontrolled type 2 diabetes, now taken off all insulin therapy and doing very well metabolically on just a low-dose oral hypoglycemic drug therapy as given. Her glucose values have ranged from 147 to 179 mg/dL. Her latest chemistries shows a BUN of 55, sodium 139, potassium 4.8, chloride 100, CO2 of 24, glucose 139, and creatinine is 5.8. ASSESSMENT AND PLAN: So, at this time, we will continue the low-dose Prandin given as 1 mg p.o. t.i.d. before meals as ordered. We will titrate incremental as indicated to optimize metabolic control. We will obtain serial chemistries and supplement accordingly as needed. We will follow. Irene Ambrose MD
[2017-02-24 20:26] VITALS: BP 170/72; PULSE 110; TEMP 97; O2SAT 97
--- NOTE | 2017-02-24 20:29 | CP.PCM.PN ---
Subjective - Date & Time of Evaluation Date of Evaluation: 02/24/17 Time of Evaluation: 06:30 - Subjective Subjective: Patient is back from hemodialysis. She is very tired. Awaiting transfer to acute rehab this evening. Still not much of a bowel movement. Will continue with Miralax in Nepro q evening, plus Colace 100mb gid plus Senna q hs. If no result by bomorrow will give mineral oil enema/ Continues on Tobradex eye drops. Left eye appears less irritated. Will try to d/c claritin and fluticasone nasal spray tomorrow. The 10 ml/hr iv saline is to keep the left femoral vein PICC line open. This can be stopped during therapy sessions. Objective - Vital Signs/Intake and Output Vital Signs (last 24 hours): Temp Pulse Resp BP Pulse Ox 97.0 F L 110 H 20 170/72 H 97 02/24/17 20:24 02/24/17 20:24 02/24/17 20:24 02/24/17 20:24 02/24/17 20:24 - Medications Medications: Current Medications Acetaminophen (Tylenol 325mg Tab) 650 mg PO Q4 PRN PRN Reason: Fever >100.4 F Acetaminophen (Tylenol 325mg Tab) 650 mg PO Q4 PRN PRN Reason: Pain, Mild (1-3) Acetaminophen (Tylenol 325mg Tab) 650 mg PO Q4 PRN PRN Reason: Pain, Mild (1-3) Apixaban (Eliquis) 5 mg PO BID [facility] PRN Reason: Protocol Last Admin: 02/24/17 16:36 Dose: 5 mg Aspirin (Ecotrin) 81 mg PO DAILY [facility] Last Admin: 02/24/17 09:14 Dose: 81 mg Atorvastatin Calcium (Lipitor) 40 mg PO DAILY [facility] Last Admin: 02/24/17 09:14 Dose: 40 mg Calcitriol (Rocaltrol) 0.25 mcg PO DAILY [facility] Last Admin: 02/24/17 09:14 Dose: 0.25 mcg Calcium Carbonate (Oscal) 500 mg PO BIDWM [facility] Last Admin: 02/24/17 16:39 Dose: 500 mg Collagenase (Santyl) 1 applic TOP DAILY [facility] Last Admin: 02/24/17 09:19 Dose: Not Given Docusate Sodium (Colace) 100 mg PO BID [facility] Last Admin: 02/24/17 16:35 Dose: 100 mg Epoetin Tha (Procrit) 6,000 unit SC MWF [facility] Ergocalciferol (Drisdol 50,000 Intl Units Cap) 1 cap PO Q7D [facility] Last Admin: 02/21/17 09:16 Dose: 1 cap Fluconazole (Diflucan) 100 mg PO DAILY [facility] Last Admin: 02/24/17 09:13 Dose: 100 mg Fluticasone Propionate (Flonase) 1 spr ALLAN BID [facility] Last Admin: 02/24/17 16:35 Dose: 1 spr Gabapentin (Neurontin) 300 mg PO TID [facility] Last Admin: 02/24/17 16:35 Dose: 300 mg Hydromorphone HCl (Dilaudid) 2 mg PO Q4 PRN PRN Reason: Pain, moderate (4-7) Last Admin: 02/24/17 09:28 Dose: 2 mg Sodium Chloride (Sodium Chloride 0.45%) 1,000 mls @ 10 mls/hr IV .Q24H [facility] Last Admin: 02/24/17 14:13 Dose: Not Given Ceftazidime/Avibactam 0.94 gm/ (Sodium Chloride) 100 mls @ 50 mls/hr IVPB MWF@ 1700 [facility] Last Admin: 02/24/17 16:37 Dose: 50 mls/hr Vancomycin HCl 250 mg/ Sodium (Chloride) 100 mls @ 100 mls/hr IVPB MWF@1700 [facility] PRN Reason: Protocol Last Admin: 02/24/17 17:23 Dose: 100 mls/hr Gentamicin Sulfate 40 mg/ (Sodium Chloride) 101 mls @ 100 mls/hr IVPB MWF@1700 [facility] PRN Reason: Protocol Last Admin: 02/24/17 18:22 Dose: 100 mls/hr Lactobacillus Acidophilus (Bacid Acidophilus) 1 cap PO BID [facility] Last Admin: 02/24/17 16:37 Dose: 1 cap Lamotrigine (Lamictal) 50 mg PO Q12 [facility] Last Admin: 02/24/17 09:13 Dose: 50 mg Loratadine (Claritin) 10 mg PO DAILY [facility] Last Admin: 02/24/17 09:12 Dose: 10 mg Metoprolol Tartrate (Lopressor) 25 mg PO Q12 [facility] Last Admin: 10/16/17 09:13 Dose: 25 mg Ondansetron HCl (Zofran Inj) 4 mg IVP Q6 PRN PRN Reason: Nausea/Vomiting Pantoprazole Sodium (Protonix Ec Tab) 40 mg PO DAILY [facility] Last Admin: 02/24/17 09:13 Dose: 40 mg Polyethylene Glycol (Miralax) 17 gm PO HS [facility] Last Admin: 02/23/17 21:45 Dose: 17 gm Repaglinide (Prandin) 1 mg PO TIDAC [facility] Last Admin: 02/24/17 16:35 Dose: 1 mg Sevelamer HCl (Renagel) 1,600 mg PO TID [facility] Last Admin: 02/24/17 16:36 Dose: 1,600 mg Simethicone (Mylicon Chew Tab) 80 mg PO TID [facility] Last Admin: 02/24/17 16:37 Dose: 80 mg Sodium Chloride (Sodium Chloride 0.45%) 500 ml IV CONT [facility] Tobramycin/Dexamethasone (Tobradex Opht Susp) 1 drop OU Q6H [facility] Last Admin: 02/24/17 15:46 Dose: Not Given Vitamin B Complex/Vit C/Folic Acid (Nephro-Ajay) 1 tab PO DAILY [facility] Last Admin: 02/24/17 09:16 Dose: 1 tab - Labs Labs: 02/23/17 06:00 02/23/17 06:00 Assessment and Plan (1) Status post below knee amputation of right lower extremity Status: Acute (2) Infection of amputation stump of right lower extremity Status: Acute (3) ESRD (end stage renal disease) on dialysis Status: Chronic (4) DM type 2 (diabetes mellitus, type 2) Status: Chronic (5) Elevated liver enzymes Status: Acute (6) Seizure disorder Status: Acute (7) Coagulopathy Status: Chronic (8) 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 SAME ORDERS FOR NOW.
[2017-02-24] MEDS ORDERED: Dexamethasone/Tobramycin Ophth Susp OU SCH (22:00)
[2017-02-24] MEDS ORDERED: POLYETHYLENE GLYCOL 3350 17 GM/Dose PACKET PO SCH (22:00)
[2017-02-25] MEDS ORDERED: Santyl Collagenase OINTMENT TOP SCH (06:00)
[2017-02-25] MEDS ORDERED: Lactobacillus Acidophilus 500 MU Cap PO SCH (09:00)
[2017-02-25] MEDS ORDERED: Pantoprazole 40 mg EC Tab PO SCH (09:00)
[2017-02-25] MEDS ORDERED: Multivitamin Vitamin B Complex (Nephro-Vite) Tab PO SCH (09:00)
[2017-02-25] MEDS ORDERED: Simethicone 80 mg Chewtab PO SCH (09:00)
[2017-02-26] MEDS ORDERED: Gentamicin 80 mg/2mL Inj. IVPB SCH (09:00)
== END 2017-02-24 20:45 | DRG 564 ==
LOC: H.TCU 14:56
PROVIDERS: ADMIT Internal Medicine; ATTEND Internal Medicine
PROC: 3E04329 Introduction of Other Anti-infective into Central Vein, Percutaneous Approach (ICD-10-PCS; principal; 2017-02-09)
PROC: F07 Physical Rehabilitation and Diagnostic Audiology, Rehabilitation, Motor Treatment (ICD-10-PCS; 2017-02-09)
PROC: F07Z9FZ Gait Training/Functional Ambulation Treatment using Assistive, Adaptive, Supportive or Protective Equipment (ICD-10-PCS; 2017-02-09)
PROC: F08Z4FZ Home Management Treatment using Assistive, Adaptive, Supportive or Protective Equipment (ICD-10-PCS; 2017-02-09)
DX: T87.43 Infection of amputation stump, right lower extremity (principal); N18.6 End stage renal disease; I12.0 Hypertensive chronic kidney disease with stage 5 chronic kidney disease or end stage renal disease; D68.9 Coagulation defect, unspecified; E11.52 Type 2 diabetes mellitus with diabetic peripheral angiopathy with gangrene; I47.1 Supraventricular tachycardia; M86.9 Osteomyelitis, unspecified; B19.10 Unspecified viral hepatitis B without hepatic coma; E11.22 Type 2 diabetes mellitus with diabetic chronic kidney disease; Z47.81 Encounter for orthopedic aftercare following surgical amputation; Y83.5 Amputation of limb(s) as the cause of abnormal reaction of the patient, or of later complication, without mention of misadventure at the time of the procedure; D63.1 Anemia in chronic kidney disease; E11.319 Type 2 diabetes mellitus with unspecified diabetic retinopathy without macular edema; E11.40 Type 2 diabetes mellitus with diabetic neuropathy, unspecified; E11.610 Type 2 diabetes mellitus with diabetic neuropathic arthropathy; E11.69 Type 2 diabetes mellitus with other specified complication; E66.3 Overweight; E78.00 Pure hypercholesterolemia, unspecified; E83.39 Other disorders of phosphorus metabolism; G40.909 Epilepsy, unspecified, not intractable, without status epilepticus; I73.9 Peripheral vascular disease, unspecified; Z87.01 Personal history of pneumonia (recurrent); J31.0 Chronic rhinitis; K80.20 Calculus of gallbladder without cholecystitis without obstruction; L08.9 Local infection of the skin and subcutaneous tissue, unspecified; N92.0 Excessive and frequent menstruation with regular cycle; Z79.4 Long term (current) use of insulin; Z79.82 Long term (current) use of aspirin; Z88.8 Allergy status to other drugs, medicaments and biological substances; Z89.511 Acquired absence of right leg below knee; Z89.512 Acquired absence of left leg below knee; Z99.2 Dependence on renal dialysis; E11.65 Type 2 diabetes mellitus with hyperglycemia; H26.9 Unspecified cataract; L97.519 Non-pressure chronic ulcer of other part of right foot with unspecified severity; M54.9 Dorsalgia, unspecified; R09.81 Nasal congestion; R12 Heartburn; R74.8 Abnormal levels of other serum enzymes; R79.89 Other specified abnormal findings of blood chemistry; R94.5 Abnormal results of liver function studies; Z89.022 Acquired absence of left finger(s); Z68.34 Body mass index [BMI] 34.0-34.9, adult

== ENCOUNTER 2017-02-24 15:49 | Inpatient (IN) | payer MEDICARE, MEDICAID ==
[2017-02-24 17:52] VITALS: BMI 38.8
[2017-02-24] MEDS ORDERED: ONDANSETRON 4 MG IVP PRN (22:32)
[2017-02-24] MEDS ORDERED: Sodium Chloride 0.45% 500ml 500 ML SOL IV SCH (22:45)
[2017-02-24] MEDS: POLYETHYLENE GLYCOL 3350 17 GM/Dose PACKET PO SCH (23:42)
[2017-02-24] MEDS ORDERED: Sodium Chloride 0.45% 1,000 ML IV SCH (23:45)
[2017-02-25] MEDS: Dexamethasone/Tobramycin Ophth Susp OU SCH ×5 (00:07→17:19)
[2017-02-25] MEDS ORDERED: Sodium Chloride 0.45% 1,000 ML IV SCH (01:30)
[2017-02-25] MEDS: Santyl Collagenase OINTMENT TOP SCH (05:53)
--- NOTE | 2017-02-25 08:11 | CP.PCM.HP ---
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 She had been under podiatric care for the previous 6 months for a Charcot joint of the right ankle with a non-healing ulcer. Within hours she developed septic shock and suffered a seizure. After extensive ICU care she was ultimately diagnosed with osteomyelitis of the right ankle and lower leg and required right below the knee amputation on 10/01/16. This required two subsequent revisions (on 11/22 and 12/02). Along the way she developed an infected abrasion of the right patella. The right BK wound dehisced and was found to be infected by multidrug resistant Klebsiella pneumoniae. Dr. Levon Lemon managed the infectious disease complication and multiple antibiotics. With the use of several combined iv antibiotics (which continue) and finally with negative pressure wound therapy (wound vac), the BK surgical wound has been healing well. The patellar infection was also responding to chemical debridement with Santyl. Vascular evaluation and the several surgeries involving the right leg were done by Drs. Magan Mccormack and Dariel Doran, vascular surgeons. They continued to provide ongoing post-surgical care with the help of the wound care nursing team. A number of sacral decubitus ulcerations and left knee skin breakdown were managed with success by the wound care team. Previous history involved a coagulopathy involving thrombophilia. Because of the need for hemodialysis, multiple AV fistulae were created and subsequently clotted. On one occasion an attempt was made to de-clot a femoral AV fistula, which resulted in embolization of thrombus to the left leg, and she required a left BK amutation . Vascular occlusion to the digits caused loss of her third right fnger due to osteomyelitis. 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 When the cause of these vascular occlusions was finally identified, the patient was placed on Eliquis and aspirin and all forms of heparin were avoided. Other complications involved pneumonia - treated with antibiotics and nebulizer therapy (Dr. J. Kozel) and brittle diabetes which required complex adjustments of oral and subcutaneous insulins by dramatic agent (Dr. Richard Ambrose). After being started on anti-seizure medication by Dr. Danii Maguire there were no further seizures, but Topamax had to be stopped due to gallstone and replace by Lamictal. This is being gradually increased to 100mg q12h on 04/27 and the to 150mg q12h on 03/04. The dose should then remain at that therapeutic level for 18 months. Anemia was caused by multiple factors (dialysis, renal disease, antibiotics), but mainly was caused by severe menorrhagia. Endometrial ablation was performed by Dr. Tierney Larry (chemical operations and training) with resultant cessation of menses and improved red blood cell counts. The pathology of the uterine specimens was negative for malignancy. Hematology problems involving managing coagulation problems, a number of transfusions of red blood cells, and related issues were resolved by Dr. Evita Shepard. Dr. Guadarrama is adjusting the Procrit dosing to maintain Hgb around 11. Opthalmology examination performed by Dr. july Hernandez revealed normal intra- ocular pressures, but there was severe diabetic retinopathy. Arrangements were made for her to have LASER treatment for this at his facility on 02/11/17 and again on 02/18. She subsequently developed some inflammation of the left eye and has been placed on Tobradex (tobramycin + dexamethasone) eye drops. The patient's ESRD has been managed by Dr. Alta Guadarrama and colleagues. She has a right subclavian Permacath which has held up well. Hemodialysis will be done every MWF.. At one point the patient had tachycardia (SVT) to 130 and elevated blood pressure. Insurance Marketing Specialist Dr. Gallito Shepard recommended that we use low dose beta- katiuska (avoiding high doses because of risk of vasospasm), and this was successful. Mildly elevated LFT's in the presence of gallstones - prompted stopping Topamax. Ultrasound showed no gallbladder thickening or ductal obstruction and the patient is asymptomatic. We are watching this. The patient needed 2 PICC lines (the first by Dr. Levon Heck, the second by Dr. Cameron Caicedo), which were difficult to accomplish since the patient has very little usable vasculature. A left femoral vein PICC line continues to function well. Intensive Physical and Occupational Therapy has been provided - so well that the patient is able to transfer (with assistance) using a sliding board from bed to chair and back. She can stand on her left BK prosthesis (again, with assistance). Upper body and truncal stability have been improving, and she is now being transferred to our [facility] where we will also be continuing wound and IV antibiotic therapy along with acute rehabilitative therapies. MEDICATIONS: (SEE LIST FOR DETAILS) Apixiban (Eliquis) 5mg bid ASA-EC 81 mg i qd Lipitor 40mg i qd Rocaltrol 0.25mg qd Calcium Carbonate 500mg bid Ceftazidime/avibactam 0.94mg in 100 cc saline q MWF IV after hemodialysis Gentamicin 40mg q MWF after HD IV Vancomycin 250mg qMWF after HD IV Dilaudid 2mg PO q4h prn moderate pain Dilaudid 1mg IV q4h prn severe pain Procrit 6000 units q MWF sq Drisdol 50,000 international units q WEd Diflucan 100mg po daily Gabapentin 300mg po tid Lamictal 50mg po q12h (starts 100mg q12h on 02/25) Xopenex 0.63mg inhalation q8h prn Metoprolol tartrate 25mg po q12h Protonix-EC 40mg po qd Repaglinide (Prandin) 1 mg tid ac Sennosides 25.8mg po qhs Renagel (sevelamer) 1,600mg tid Nephrovite i po qd Colace 100mg bid Benadryl 25mg po q6h prn pruritis Santyl dressing to patellar wound after cleaning/debriding with saline gauze daily Anusol-HC to rectal area bid prn anal fissure. Robitussin-DM 10ml po q4h prn cough Miralax 17g (1 scoop) in Nepro every evening Present on Admission - Present on Admission Any Indicators Present on Admission: Yes History of Uncontrolled Diabetes: Yes - Notes: Notes:: Pre-existing osteomyelitis of the right ankle required BK amputation Review of Systems - Review of Systems All systems: reviewed and no additional remarkable complaints except (Pain in right BK wound when wound vac and dressings changes, irritation left eye post LASER tx) Past Patient History - Tetanus Immunizations Tetanus Immunization: Up to Date - Past Medical History & Family History Past Medical History?: Yes - Past Social History Smoking Status: Never Smoked - CARDIAC Hx Hypercholesterolemia: Yes Hx Hypertension: Yes - PULMONARY Hx Respiratory Disorders: Yes Hx Pneumonia: Yes - NEUROLOGICAL Hx Neurological Disorder: Yes Hx Seizures: Yes (see hpi) - HEENT Hx HEENT Problems: Yes Hx Cataracts: Yes Other/Comment: Diabetic retinopathy severe - LASER treatments January 2017 - Dr. Hernandez - RENAL Hx Chronic Kidney Disease: Yes Hx Dialysis: Yes Date of Last Dialysis Treatment: 02/24/17 - ENDOCRINE/METABOLIC Hx Diabetes Mellitus Type 2: Yes - HEMATOLOGICAL/ONCOLOGICAL Hx Blood Disorders: Yes (THROMBOPHILIA - Heparin Ab's, Protein C & S deficiencies.) Hx AIDS: No Hx Anemia: Yes Hx Blood Transfusions: Yes Hx Blood Transfusion Reaction: No Hx Hepatitis B: Yes (Ab positive) Hx Hepatitis C: No Hx Human Immunodeficiency Virus (HIV): No - INTEGUMENTARY Hx Dermatological Problems: No - MUSCULOSKELETAL/RHEUMATOLOGICAL Hx Falls: No - GASTROINTESTINAL Hx Gastrointestinal Disorders: Yes Other/Comment: hx of anal fissure - GENITOURINARY/GYNECOLOGICAL Hx Genitourinary Disorders: Yes Other/Comment: Menorrhagia - PSYCHIATRIC Hx Substance Use: No - SURGICAL HISTORY Hx Surgeries: Yes Hx Amputation: Yes Hx Arteriovenous Shunt: Yes Hx Vascular Access Device: Yes (R subclavian Permacath) Other/Comment: INSERTION OF DIALYSIS CATH;CATARACT-BOTH EYES;LEFT BELOW KNEE AMPUTATION, RIGHT BK AMPUTATION, MULTIPLE FINGER AMPUTATIONS - ANESTHESIA Hx Anesthesia: Yes Hx Anesthesia Reactions: No Hx Malignant Hyperthermia: No Has any member of the family had a problem w/ anesthesia?: No Meds Allergies/Adverse Reactions: Allergies Allergy/AdvReac Type Severity Reaction Status Date / Time heparin AdvReac Severe ANAPHYLAXIS Verified 02/09/17 17:46 Beta-Blockers AdvReac Mild none of Verified 12/29/16 10:25 (Beta-Adrenergic Bloc the listed reactions tramadol [From Ultram] AdvReac Unknown potential Verified 09/18/16 10:41 vasoconstriction Physical Exam - Constitutional Appears: In Acute Distress - Head Exam Head Exam: NORMAL INSPECTION - Eye Exam Eye Exam: Conjunctival injection - ENT Exam ENT Exam: Mucous Membranes Moist - Neck Exam Additional comments: R subclavian Permacath intact. - Respiratory Exam Respiratory Exam: Clear to Auscultation Bilateral, NORMAL BREATHING PATTERN - Cardiovascular Exam Cardiovascular Exam: REGULAR RHYTHM, +S1, +S2 - GI/Abdominal Exam GI & Abdominal Exam: Normal Bowel Sounds, Soft - Extremities Exam Additional comments: Missing right 3rd finger and left 2nd, 3rd, 4th fingers secondary to amputations. L 5th finger is contracted. Weak radial pulses bilaterally. Left BK residual limb is warm and non-tender and without lesions. Right BK wound vac in place and patellar dressing in place. - Healing BK site approx. 1 x 6 cm with excellent granulation tissue. R patellar wound approc 3- 4cm in diameter with central necrotic tissue and good surrounding granulation tissues. Both wounds making great progress. - Neurological Exam Neurological exam: Alert, CN II-XII Intact, Oriented x3 - Psychiatric Exam Psychiatric exam: Normal Affect, Normal Mood - Skin Skin Exam: Dry, Normal Color Results - Vital Signs Recent Vital Signs: Last Vital Signs Temp 96.3 F L 02/24/17 21:00 Pulse 103 H 02/24/17 23:47 Resp 20 02/24/17 21:27 BP 126/60 02/24/17 23:47 Pulse Ox 95 02/24/17 21:27 - Labs Labs: Laboratory Results - last 24 hr 02/25/17 06:30 POC Glucose (mg/dL) 121 H Assessment & Plan (1) Status post below knee amputation of right lower extremity Assessment and Plan: Acute rehabilitation - eventual BK prosthesis to allow ambulation. Status: Acute (2) Infection of amputation stump of right lower extremity Assessment and Plan: Continue IV CERTAZIDIME/AVIBACTAM, GENTAMICIN, AND VANCOMYCIN Q MWF Continue po fluconazole. ID management by Dr. Lemon. Status: Acute (3) DM type 2 (diabetes mellitus, type 2) Assessment and Plan: Management by Dr. Richard Ambrose Status: Chronic (4) ESRD (end stage renal disease) on dialysis Assessment and Plan: Management by Dr. Alta Guadarrama Status: Chronic (5) Diabetic retinopathy Assessment and Plan: Continue Tobradex eye drops. Possible re-eval by Dr. Hernandez. Status: Acute (6) Seizure disorder Assessment and Plan: Will increase Lamictal to 100mg q12h. Status: Acute (7) Elevated liver enzymes Assessment and Plan: Will monitor. Status: Acute (8) Gallstones without obstruction of gallbladder Assessment and Plan: No interventions at this time. 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 Continue Eliquis and aspirin. Heparin must never be given. 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 Evita Shepard is risk management internship. Status: Acute (11) Peripheral arterial occlusive disease Status: Chronic (12) Hyperlipidemia Status: Chronic (13) Supraventricular tachycardia Assessment and Plan: Dr. Richard Shepard is seo professional. Status: Acute
[2017-02-25] MEDS: Lactobacillus Acidophilus 500 MU Cap PO SCH ×2 (08:22→17:23)
[2017-02-25] MEDS: Simethicone 80 mg Chewtab PO SCH ×3 (08:23→17:21)
[2017-02-25] MEDS: Multivitamin Vitamin B Complex (Nephro-Vite) Tab PO SCH (08:23)
[2017-02-25] MEDS: Pantoprazole 40 mg EC Tab PO SCH (08:26)
--- NOTE | 2017-02-25 11:33 | CP.PCM.CON ---
History of Present Illness - History of Present Illness History of Present Illness: This patient who is 46 years of age transferred from subacute unit to acute rehabilitation after very long complicated admissions related to multiple large infection amputation and In the subacute unit she has been receiving antibiotics and receiving hemodialysis as outpatient now she transferred to the rehabilitation and Summary that's the history of that admission that has been going on in the past 6 month or so This patient who is 46 years of age admitted to the hospital in August 2016 with right foot ulcer and osteomyelitis subsequently required to have below knee amputation complicated with multiple wound infection. With very complicated past medical and surgical history with multiple surgical procedures required throughout all this time. 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 Patient also anemic that required to be given EPO and supplement and has been stable. Patient lately discovered to have gallstone when she has abnormal liver function tests which has been what appeared to be corrected and monitor the the cholelithiasis. Patient transferred to subacute unit for father antibiotics treatment and father rehabilitation And meantime she will be going as outpatient for hemodialysis Review of Systems - Constitutional Constitutional: Fatigue - EENT Nose/Mouth/Throat: As Per HPI - Breasts Breasts: As Per HPI - Cardiovascular Cardiovascular: absent: Chest Pain at Rest - Respiratory Respiratory: absent: Cough, Dyspnea - Gastrointestinal Gastrointestinal: absent: Bloating - Musculoskeletal Musculoskeletal: As Per HPI, Muscle Weakness - Neurological Neurological: Abnormal Gait. absent: Behavioral Changes, Focal Weakness - Psychiatric Psychiatric: absent: Anxiety, Mood Swings Past Patient History - Tetanus Immunizations Tetanus Immunization: Up to Date - Past Medical History & Family History Past Medical History?: Yes - Past Social History Smoking Status: Never Smoked - CARDIAC Hx Hypercholesterolemia: Yes Hx Hypertension: Yes - PULMONARY Hx Respiratory Disorders: Yes Hx Pneumonia: Yes - NEUROLOGICAL Hx Neurological Disorder: Yes Hx Seizures: Yes (see hpi) - HEENT Hx HEENT Problems: Yes Hx Cataracts: Yes Other/Comment: Diabetic retinopathy severe - LASER treatments January 2017 - Dr. Hernandez - RENAL Hx Chronic Kidney Disease: Yes Hx Dialysis: Yes Date of Last Dialysis Treatment: 02/24/17 - ENDOCRINE/METABOLIC Hx Diabetes Mellitus Type 2: Yes - HEMATOLOGICAL/ONCOLOGICAL Hx Blood Disorders: Yes (THROMBOPHILIA - Heparin Ab's, Protein C & S deficiencies.) Hx AIDS: No Hx Anemia: Yes Hx Blood Transfusions: Yes Hx Blood Transfusion Reaction: No Hx Hepatitis B: Yes (Ab positive) Hx Hepatitis C: No Hx Human Immunodeficiency Virus (HIV): No - INTEGUMENTARY Hx Dermatological Problems: No - MUSCULOSKELETAL/RHEUMATOLOGICAL Hx Falls: No - GASTROINTESTINAL Hx Gastrointestinal Disorders: Yes Other/Comment: hx of anal fissure - GENITOURINARY/GYNECOLOGICAL Hx Genitourinary Disorders: Yes Other/Comment: Menorrhagia - PSYCHIATRIC Hx Substance Use: No - SURGICAL HISTORY Hx Surgeries: Yes Hx Amputation: Yes Hx Arteriovenous Shunt: Yes Hx Vascular Access Device: Yes (R subclavian Permacath) Other/Comment: INSERTION OF DIALYSIS CATH;CATARACT-BOTH EYES;LEFT BELOW KNEE AMPUTATION, RIGHT BK AMPUTATION, MULTIPLE FINGER AMPUTATIONS - ANESTHESIA Hx Anesthesia: Yes Hx Anesthesia Reactions: No Hx Malignant Hyperthermia: No Has any member of the family had a problem w/ anesthesia?: No Meds Allergies/Adverse Reactions: Allergies Allergy/AdvReac Type Severity Reaction Status Date / Time heparin AdvReac Severe ANAPHYLAXIS Verified 02/09/17 17:46 Beta-Blockers AdvReac Mild none of Verified 12/29/16 10:25 (Beta-Adrenergic Bloc the listed reactions tramadol [From Ultram] AdvReac Unknown potential Verified 09/18/16 10:41 vasoconstriction - Medications Medications: Current Medications Acetaminophen (Tylenol 325mg Tab) 650 mg PO Q4 PRN PRN Reason: Pain, Mild (1-3) Acetaminophen (Tylenol 325mg Tab) 325 mg PO Q4 PRN PRN Reason: Fever >100.4 F Apixaban (Eliquis) 5 mg PO BID [facility] PRN Reason: Protocol Last Admin: 02/25/17 08:23 Dose: 5 mg Aspirin (Ecotrin) 81 mg PO DAILY [facility] Last Admin: 02/25/17 08:26 Dose: 81 mg Atorvastatin Calcium (Lipitor) 40 mg PO [facility] Calcitriol (Rocaltrol) 0.25 mcg PO DAILY [facility] Last Admin: 02/25/17 08:25 Dose: 0.25 mcg Calcium Carbonate (Oscal) 500 mg PO BID [facility] Last Admin: 02/25/17 08:26 Dose: 500 mg Collagenase (Santyl) 1 applic TOP 0600 [facility] Last Admin: 02/25/17 05:53 Dose: 1 applic Docusate Sodium (Colace) 100 mg PO BID [facility] Last Admin: 02/25/17 08:25 Dose: 100 mg Epoetin Tha (Procrit) 6,000 unit SC MWF [facility] Ergocalciferol (Drisdol 50,000 Intl Units Cap) 1 cap PO Q7D [facility] Fluconazole (Diflucan) 100 mg PO DAILY [facility] PRN Reason: Protocol Last Admin: 02/25/17 08:22 Dose: 100 mg Fluticasone Propionate (Flonase) 1 spr ALLAN BID [facility] Last Admin: 02/25/17 08:30 Dose: 1 spr Gabapentin (Neurontin) 300 mg PO TID [facility] Last Admin: 02/25/17 08:25 Dose: 300 mg Hydromorphone HCl (Dilaudid) 2 mg PO Q4 PRN PRN Reason: Pain, moderate (4-7) Last Admin: 02/25/17 08:31 Dose: 2 mg Ceftazidime/Avibactam 0.94 gm/ (Sodium Chloride) 100 mls @ 100 mls/hr IVPB [facility] PRN Reason: Protocol Sodium Chloride (Sodium Chloride 0.45%) 1,000 mls @ 10 mls/hr IV .Q24H [facility] Stop: 02/26/17 01:28 Last Admin: 02/25/17 01:30 Dose: 10 mls/hr Vancomycin HCl 250 mg/ Sodium (Chloride) 100 mls @ 100 mls/hr IVPB [facility] PRN Reason: Protocol Gentamicin Sulfate 40 mg/ (Sodium Chloride) 101 mls @ 100 mls/hr IVPB [facility] [place] PRN Reason: Protocol Lactobacillus Acidophilus (Bacid Acidophilus) 1 cap PO BID [facility] Last Admin: 02/25/17 08:22 Dose: 1 cap Lamotrigine (Lamictal) 50 mg PO Q12 [facility] Last Admin: 02/25/17 08:24 Dose: 50 mg Loratadine (Claritin) 10 mg PO DAILY [facility] Last Admin: 02/25/17 08:27 Dose: 10 mg Metoprolol Tartrate (Lopressor) 25 mg PO Q12 [facility] Last Admin: 02/25/17 08:25 Dose: 25 mg Ondansetron HCl (Zofran Inj) 4 mg IVP Q4 PRN PRN Reason: Nausea/Vomiting Pantoprazole Sodium (Protonix Ec Tab) 40 mg PO DAILY [facility] Last Admin: 02/25/17 08:26 Dose: 40 mg Polyethylene Glycol (Miralax) 17 gm PO HS [facility] Last Admin: 02/24/17 23:42 Dose: 17 gm Repaglinide (Prandin) 1 mg PO ACTID [facility] Last Admin: 02/25/17 08:00 Dose: 1 mg Sevelamer HCl (Renagel) 1,600 mg PO TID [facility] Last Admin: 02/25/17 08:23 Dose: 1,600 mg Simethicone (Mylicon Chew Tab) 80 mg PO TID [facility] Last Admin: 02/25/17 08:23 Dose: 80 mg Tobramycin/Dexamethasone (Tobradex Opht Susp) 1 drop OU Q6 [facility] Last Admin: 02/25/17 05:55 Dose: 1 drop Vitamin B Complex/Vit C/Folic Acid (Nephro-Ajay) 1 tab PO DAILY [facility] Last Admin: 02/25/17 08:23 Dose: 1 tab Physical Exam - ENT Exam ENT Exam: Mucous Membranes Moist - Respiratory Exam Respiratory Exam: NORMAL BREATHING PATTERN. absent: Rales - Cardiovascular Exam Cardiovascular Exam: absent: JVD, Rubs - GI/Abdominal Exam GI & Abdominal Exam: Normal Bowel Sounds. absent: Guarding - Back Exam Back exam: absent: CVA tenderness (L), CVA tenderness (R) - Neurological Exam Neurological exam: Alert - Psychiatric Exam Psychiatric exam: Normal Affect Results - Vital Signs Recent Vital Signs: Last Vital Signs Temp 97.7 F 02/25/17 08:07 Pulse 107 H 02/25/17 08:25 Resp 20 02/25/17 08:07 BP 156/67 H 02/25/17 08:25 Pulse Ox 97 02/25/17 08:07 - Labs Labs: Laboratory Results - last 24 hr 02/25/17 06:30 POC Glucose (mg/dL) 121 H Assessment & Plan (1) CKD (chronic kidney disease) stage V requiring chronic dialysis Assessment and Plan: Patient with end stage renal disease on maintenance hemodialysis MWF [facility] for several months require multiple procedures and treatment and then transferred to subacute unit for short time for continuation of antibiotics and hemodialysis as outpatient and then yesterday transferred to acute unit for rehabilitation status post amputation Patient scheduled for hemodialysis for tomorrow In summary her past diagnosis and issues as follow End stage renal disease on hemodialysis (MWF) via permacath: no acute need for dialysis today. next HD friday as ordered. continue with Nephrovite 1 tab/day. Anemia: PRBC as needed. On MARTHA as Epogen Hyperphosphatemia: continue with current meds as renagel 1600 TID, Secondary hyperparathyroidism with Vit D Deficiency: on calcitriol Hypertension controlled Glycemic control, Dialysis consistent diet Further work up/management as per primary team. 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
--- NOTE | 2017-02-25 13:16 | PSY.TMCNF ---
Nursing - Vital Signs Vital Signs (Last 8 hours): Vital Signs 02/25/17 02/25/17 08:07 08:25 Temperature 97.7 F Pulse Rate 107 H 107 H Respiratory 20 Rate Blood Pressure 156/67 H 156/67 H O2 Sat by Pulse 97 Oximetry Pain: 0 - Precautions: Isolation: Contact - Medications/Other Issues Comment: Pt at moderate nutritional risk. 1. Pt to consume 75-100% of meals. 2. Blood glucoses to be between 70-180 mg/dl. 3. K+ WNL. Follow-up due on - Bowel Management Bowel Pattern: Normal - Patient/Family Teaching Comments: HD Physical Therapy - Transfers Sit to Stand: Dependent - Ambulation Level of Assistance: Not Tested - Stair Negotiation Stairs: Level of Assistance: Not Tested - Standing Balance Static Stand: Not tested Dynamic Stand: Unable to assess/perform - Pain Management Techniques: Medication, Distraction - Assessment/Plan Assessment: Patient seen for PT IE upon admittance to [facility]. Patient performing bed mobility with assist x 1 as well as using bed rails. Patient noted to have decreased core activation that is necessary due to b/l LE amputations. Patient to benefit from skilled PT to work on transfers, endurance , strengthen, and standing tolerance. - Provider Therapist: Shanon Allen PT License Number: [id number] Occupational Therapy - Arousal/Attention/Orientation Patient Orientation: Person, Place, Time, Appropriate to Situation - ADL/IADL Self Feeding: Supervision Grooming: Supervision - Pain Alleviating Techniques: Medication, Distraction - Assessment/Plan Assessment: Patient seen for PT IE upon admittance to [facility]. Patient performing bed mobility with assist x 1 as well as using bed rails. Patient noted to have decreased core activation that is necessary due to b/l LE amputations. Patient to benefit from skilled PT to work on transfers, endurance , strengthen, and standing tolerance. Speech Therapy - Plan Assessment: Patient seen for PT IE upon admittance to [facility]. Patient performing bed mobility with assist x 1 as well as using bed rails. Patient noted to have decreased core activation that is necessary due to b/l LE amputations. Patient to benefit from skilled PT to work on transfers, endurance , strengthen, and standing tolerance. Recreational Therapy - Assessment Assessment/Plan: Patient seen for PT IE upon admittance to [facility]. Patient performing bed mobility with assist x 1 as well as using bed rails. Patient noted to have decreased core activation that is necessary due to b/l LE amputations. Patient to benefit from skilled PT to work on transfers, endurance , strengthen, and standing tolerance. Nutrition - Current Diet Current Diet/ Supplement/ Feedings: Renal dialysis 2 gram Na 2 gram K+ 80 gram protein Nepro 8 ounces 1 per. day - Appetite Percent Meal Consumed: 75-100% - Comments Comments: HD - Assessment/Goals/Time Frame Assessment/Goals/Time Frame: Pt at moderate nutritional risk. 1. Pt to consume 75-100% of meals. 2. Blood glucoses to be between 70-180 mg/dl. 3. K + WNL. Follow-up due on 03/04/2017 - Provider Provider: Muriel Dale RD
--- NOTE | 2017-02-25 13:17 | CP.PCM.CON ---
History of Present Illness - History of Present Illness History of Present Illness: Dr Daniels PMR consultation on Zita Loe, born 1970, who has been admitted to [facility] for acute inpatient rehabilitation. She has undergone a right BKA with poor healing and has wound vac. 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 She has multiple finger amputations as well. She is here for pre-prosthetic training in spite of the delay that will be present to get a right BKA prosthesis. Pain is well controlled with medication Review of Systems - Constitutional Constitutional: absent: Anorexia, Chills, Daytime Sleepiness - EENT Eyes: absent: Blurred Vision Nose/Mouth/Throat: absent: Epistaxis, Nasal Congestion, Nasal Discharge - Cardiovascular Cardiovascular: absent: Chest Pain - Respiratory Respiratory: absent: Cough, Dyspnea, Hemoptysis - Gastrointestinal Gastrointestinal: absent: Abdominal Pain - Musculoskeletal Musculoskeletal: Abnormal Gait, Muscle Weakness - Neurological Neurological: absent: Abnormal Movements, Confusion - Psychiatric Psychiatric: absent: Anxiety Past Patient History - Tetanus Immunizations Tetanus Immunization: Up to Date - Past Medical History & Family History Past Medical History?: Yes - Past Social History Smoking Status: Never Smoked Alcohol: None Drugs: Denies Home Situation {Lives}: With Family - CARDIAC Hx Hypercholesterolemia: Yes Hx Hypertension: Yes - PULMONARY Hx Respiratory Disorders: Yes Hx Pneumonia: Yes - NEUROLOGICAL Hx Neurological Disorder: Yes Hx Seizures: Yes (see hpi) - HEENT Hx HEENT Problems: Yes Hx Cataracts: Yes Other/Comment: Diabetic retinopathy severe - LASER treatments January 2017 - Dr. Hernandez - RENAL Hx Chronic Kidney Disease: Yes Hx Dialysis: Yes Date of Last Dialysis Treatment: 02/24/17 - ENDOCRINE/METABOLIC Hx Diabetes Mellitus Type 2: Yes - HEMATOLOGICAL/ONCOLOGICAL Hx Blood Disorders: Yes (THROMBOPHILIA - Heparin Ab's, Protein C & S deficiencies.) Hx AIDS: No Hx Anemia: Yes Hx Blood Transfusions: Yes Hx Blood Transfusion Reaction: No Hx Hepatitis B: Yes (Ab positive) Hx Hepatitis C: No Hx Human Immunodeficiency Virus (HIV): No - INTEGUMENTARY Hx Dermatological Problems: No - MUSCULOSKELETAL/RHEUMATOLOGICAL Hx Falls: No - GASTROINTESTINAL Hx Gastrointestinal Disorders: Yes Other/Comment: hx of anal fissure - GENITOURINARY/GYNECOLOGICAL Hx Genitourinary Disorders: Yes Other/Comment: Menorrhagia - PSYCHIATRIC Hx Substance Use: No - SURGICAL HISTORY Hx Surgeries: Yes Hx Amputation: Yes Hx Arteriovenous Shunt: Yes Hx Vascular Access Device: Yes (R subclavian Permacath) Other/Comment: INSERTION OF DIALYSIS CATH;CATARACT-BOTH EYES;LEFT BELOW KNEE AMPUTATION, RIGHT BK AMPUTATION, MULTIPLE FINGER AMPUTATIONS - ANESTHESIA Hx Anesthesia: Yes Hx Anesthesia Reactions: No Hx Malignant Hyperthermia: No Has any member of the family had a problem w/ anesthesia?: No Meds Allergies/Adverse Reactions: Allergies Allergy/AdvReac Type Severity Reaction Status Date / Time heparin AdvReac Severe ANAPHYLAXIS Verified 02/09/17 17:46 Beta-Blockers AdvReac Mild none of Verified 12/29/16 10:25 (Beta-Adrenergic Bloc the listed reactions tramadol [From Ultram] AdvReac Unknown potential Verified 09/18/16 10:41 vasoconstriction - Medications Medications: Current Medications Acetaminophen (Tylenol 325mg Tab) 650 mg PO Q4 PRN PRN Reason: Pain, Mild (1-3) Acetaminophen (Tylenol 325mg Tab) 325 mg PO Q4 PRN PRN Reason: Fever >100.4 F Apixaban (Eliquis) 5 mg PO BID [facility] [place] PRN Reason: Protocol Last Admin: 02/25/17 08:23 Dose: 5 mg Aspirin (Ecotrin) 81 mg PO DAILY [facility] [place] Last Admin: 02/25/17 08:26 Dose: 81 mg Atorvastatin Calcium (Lipitor) 40 mg PO HS [facility] [place] Calcitriol (Rocaltrol) 0.25 mcg PO DAILY [facility] [place] Last Admin: 02/25/17 08:25 Dose: 0.25 mcg Calcium Carbonate (Oscal) 500 mg PO BID [facility] [place] Last Admin: 02/25/17 08:26 Dose: 500 mg Collagenase (Santyl) 1 applic TOP 0600 [facility] [place] Last Admin: 02/25/17 05:53 Dose: 1 applic Docusate Sodium (Colace) 100 mg PO BID [facility] [place] Last Admin: 02/25/17 08:25 Dose: 100 mg Epoetin Tha (Procrit) 6,000 unit SC MWF [facility] [place] Ergocalciferol (Drisdol 50,000 Intl Units Cap) 1 cap PO Q7D [facility] [place] Fluconazole (Diflucan) 100 mg PO DAILY [facility] [place] PRN Reason: Protocol Last Admin: 02/25/17 08:22 Dose: 100 mg Gabapentin (Neurontin) 300 mg PO TID [facility] [place] Last Admin: 02/25/17 12:48 Dose: 300 mg Hydromorphone HCl (Dilaudid) 2 mg PO Q4 PRN PRN Reason: Pain, moderate (4-7) Last Admin: 02/25/17 08:31 Dose: 2 mg Ceftazidime/Avibactam 0.94 gm/ (Sodium Chloride) 100 mls @ 100 mls/hr IVPB [facility] PRN Reason: Protocol Sodium Chloride (Sodium Chloride 0.45%) 1,000 mls @ 10 mls/hr IV .Q24H [facility] Stop: 02/26/17 01:28 Last Admin: 02/25/17 01:30 Dose: 10 mls/hr Vancomycin HCl 250 mg/ Sodium (Chloride) 100 mls @ 100 mls/hr IVPB [facility] [place] PRN Reason: Protocol Gentamicin Sulfate 40 mg/ (Sodium Chloride) 101 mls @ 100 mls/hr IVPB [facility] [place] PRN Reason: Protocol Lactobacillus Acidophilus (Bacid Acidophilus) 1 cap PO BID [facility] [place] Last Admin: 02/25/17 08:22 Dose: 1 cap Lamotrigine (Lamictal) 100 mg PO Q12H [facility] [place] Metoprolol Tartrate (Lopressor) 25 mg PO Q12 [facility] [place] Last Admin: 02/25/17 08:25 Dose: 25 mg Ondansetron HCl (Zofran Inj) 4 mg IVP Q4 PRN PRN Reason: Nausea/Vomiting Pantoprazole Sodium (Protonix Ec Tab) 40 mg PO DAILY [facility] [place] Last Admin: 02/25/17 08:26 Dose: 40 mg Polyethylene Glycol (Miralax) 17 gm PO HS [facility] [place] Last Admin: 02/24/17 23:42 Dose: 17 gm Repaglinide (Prandin) 1 mg PO ACTID [facility] [place] Last Admin: 02/25/17 12:47 Dose: 1 mg Sevelamer HCl (Renagel) 1,600 mg PO TID [facility] [place] Last Admin: 02/25/17 12:51 Dose: 1,600 mg Simethicone (Mylicon Chew Tab) 80 mg PO TID [facility] [place] Last Admin: 02/25/17 12:47 Dose: 80 mg Tobramycin/Dexamethasone (Tobradex Opht Susp) 1 drop OU Q6 [facility] [place] Last Admin: 02/25/17 12:49 Dose: 1 drop Vitamin B Complex/Vit C/Folic Acid (Nephro-Ajay) 1 tab PO DAILY [facility] [place] Last Admin: 02/25/17 08:23 Dose: 1 tab Physical Exam - Constitutional Appears: Non-toxic, No Acute Distress - Head Exam Head Exam: ATRAUMATIC, NORMAL INSPECTION, NORMOCEPHALIC - Eye Exam Eye Exam: EOMI - ENT Exam ENT Exam: Mucous Membranes Moist - Respiratory Exam Respiratory Exam: NORMAL BREATHING PATTERN - Cardiovascular Exam Cardiovascular Exam: REGULAR RHYTHM - GI/Abdominal Exam GI & Abdominal Exam: Distended. absent: Firm - Neurological Exam Neurological exam: Alert, CN II-XII Intact, Oriented x3 - Psychiatric Exam Psychiatric exam: Normal Affect, Normal Mood Results - Vital Signs Recent Vital Signs: Last Vital Signs Temp 97.7 F 02/25/17 08:07 Pulse 107 H 02/25/17 08:25 Resp 20 02/25/17 08:07 BP 156/67 H 02/25/17 08:25 Pulse Ox 97 02/25/17 08:07 - Labs Labs: Laboratory Results - last 24 hr 02/25/17 06:30 POC Glucose (mg/dL) 121 H Assessment & Plan - Assessment and Plan (Free Text) Assessment: new right BKA with poor healing and old left BKA and multiple finger amputations PT/OT to continue to help increase functional independence Team conference for d/c planning Pain: controlled Vascular: severe vascular disease with upper and lower extremity amputations GI: No evidence of constipation or diarrhea Impairment code: 05.7 Patient is an excellent acute rehabilitation candidate and will have focused pain management, wound care, PT, OT and recreational therapy to help facilitate a safe and appropriate d/c plan
--- NOTE | 2017-02-25 13:36 | PCM.OPOC ---
Physiatry Overall Plan of Care - Overall Plan of Care Estimated Length of Stay in Weeks: 3 Rehab Impairment: Mobility, Balance, Coordination Etiologic Diagnosis: Amputee Rehab/Medical Prognosis: Guarded - Anticipated Interventions Physical Therapy:: Yes Occupational Therapy:: Yes Speech Therapy:: No Recreational Therapy:: Yes - Therapy Goals Bed Mobility: Contact Guard Ambulation: Maximal Assistance Functional Positional Changes:: Contact Guard Other Therapy Goals:: transfers with min A - Discharge Plan Identification of Barriers to Discharge: Home Situation Discharge Destination: Home
--- NOTE | 2017-02-25 14:48 | CP.PCM.PN ---
Subjective - Date & Time of Evaluation Date of Evaluation: 02/25/17 Time of Evaluation: 14:45 - Subjective Subjective: I D NOTE PATIENT BEING FOLLOWED BY ME FOR ENTIRE STAY ANTIBIOTICS REORDERED BY LIVE LIZARRAGA PER OUR ONGOING TREATMENT Objective - Vital Signs/Intake and Output Vital Signs (last 24 hours): Temp Pulse Resp BP Pulse Ox 97.7 F 107 H 20 156/67 H 96 02/25/17 13:25 02/25/17 13:25 02/25/17 13:25 02/25/17 13:25 02/25/17 13:00 - Medications Medications: Current Medications Acetaminophen (Tylenol 325mg Tab) 650 mg PO Q4 PRN PRN Reason: Pain, Mild (1-3) Acetaminophen (Tylenol 325mg Tab) 325 mg PO Q4 PRN PRN Reason: Fever >100.4 F Apixaban (Eliquis) 5 mg PO BID [facility] PRN Reason: Protocol Last Admin: 02/25/17 08:23 Dose: 5 mg Aspirin (Ecotrin) 81 mg PO DAILY [facility] Last Admin: 02/25/17 08:26 Dose: 81 mg Atorvastatin Calcium (Lipitor) 40 mg PO HS [facility] Calcitriol (Rocaltrol) 0.25 mcg PO DAILY [facility] Last Admin: 02/25/17 08:25 Dose: 0.25 mcg Calcium Carbonate (Oscal) 500 mg PO BID [facility] Last Admin: 02/25/17 08:26 Dose: 500 mg Collagenase (Santyl) 1 applic TOP 0600 [facility] Last Admin: 02/25/17 05:53 Dose: 1 applic Docusate Sodium (Colace) 100 mg PO BID [facility] Last Admin: 02/25/17 08:25 Dose: 100 mg Epoetin Tha (Procrit) 6,000 unit [facility] Ergocalciferol (Drisdol 50,000 Intl Units Cap) 1 cap PO Q7D [facility] Fluconazole (Diflucan) 100 mg PO DAILY [facility] PRN Reason: Protocol Last Admin: 02/25/17 08:22 Dose: 100 mg Gabapentin (Neurontin) 300 mg PO TID [facility] Last Admin: 02/25/17 12:48 Dose: 300 mg Hydromorphone HCl (Dilaudid) 2 mg PO Q4 PRN PRN Reason: Pain, moderate (4-7) Last Admin: 02/25/17 08:31 Dose: 2 mg Ceftazidime/Avibactam 0.94 gm/ (Sodium Chloride) 100 mls @ 100 mls/hr IVPB [facility] [place] PRN Reason: Protocol Sodium Chloride (Sodium Chloride 0.45%) 1,000 mls @ 10 mls/hr IV .Q24H [facility] Stop: 02/26/17 01:28 Last Admin: 02/25/17 01:30 Dose: 10 mls/hr Vancomycin HCl 250 mg/ Sodium (Chloride) 100 mls @ 100 mls/hr IVPB [facility] [place] PRN Reason: Protocol Gentamicin Sulfate 40 mg/ (Sodium Chloride) 101 mls @ 100 mls/hr IVPB [facility] [place] PRN Reason: Protocol Lactobacillus Acidophilus (Bacid Acidophilus) 1 cap PO BID [facility] Last Admin: 02/25/17 08:22 Dose: 1 cap Lamotrigine (Lamictal) 100 mg PO Q12H [facility] Metoprolol Tartrate (Lopressor) 25 mg PO Q12 [facility] Last Admin: 02/25/17 08:25 Dose: 25 mg Ondansetron HCl (Zofran Inj) 4 mg IVP Q4 PRN PRN Reason: Nausea/Vomiting Pantoprazole Sodium (Protonix Ec Tab) 40 mg PO DAILY [facility] Last Admin: 02/25/17 08:26 Dose: 40 mg Polyethylene Glycol (Miralax) 17 gm PO HS [facility] Last Admin: 02/24/17 23:42 Dose: 17 gm Repaglinide (Prandin) 1 mg PO ACTID [facility] Last Admin: 02/25/17 12:47 Dose: 1 mg Sevelamer HCl (Renagel) 1,600 mg PO TID [facility] Last Admin: 02/25/17 12:51 Dose: 1,600 mg Simethicone (Mylicon Chew Tab) 80 mg PO TID [facility] Last Admin: 02/25/17 12:47 Dose: 80 mg Tobramycin/Dexamethasone (Tobradex Opht Susp) 1 drop OU Q6 [facility] Last Admin: 02/25/17 12:49 Dose: 1 drop Vitamin B Complex/Vit C/Folic Acid (Nephro-Ajay) 1 tab PO DAILY [facility] Last Admin: 02/25/17 08:23 Dose: 1 tab
--- NOTE | 2017-02-25 17:10 | PN ---
ENDO FOLLOWUP NOTE DATE: LOCATION: Room #625, Acute rehab. HISTORY OF PRESENT ILLNESS: This is a 46-year-old female with known history of type 2 insulin-requiring diabetes, has a prior right below-knee amputation, who was now being transferred and admitted to the acute rehabilitation unit for ongoing physical therapy and occupational therapy and is being referred now for diabetic evaluation and management. She was previously on a basal and bolus insulin regimen with remarkable improvement. Her glycemic profile and developed supervening hypoglycemic episodes and has since then been taken off all insulin therapy as noted. Her latest glucose levels today actually 121 mg/dL. Her latest chemistries are pending at this time. So for now, we will actually continue the low-dose oral hypoglycemic drug therapy, given as Prandin at 1 mg p.o. t.i.d. before meals as ordered. We will titrate increment as indicated to optimize metabolic control. We will also obtain serial chemistry and supplement accordingly as needed. We will follow. Irene Ambrose MD
[2017-02-25] MEDS: POLYETHYLENE GLYCOL 3350 17 GM/Dose PACKET PO SCH (21:02)
[2017-02-26] MEDS: Dexamethasone/Tobramycin Ophth Susp OU SCH ×5 (00:11→23:13)
[2017-02-26] MEDS: Santyl Collagenase OINTMENT TOP SCH (05:47)
[2017-02-26] MEDS: Lactobacillus Acidophilus 500 MU Cap PO SCH ×2 (08:48→17:13)
[2017-02-26] MEDS: Ergocalciferol 50,000 Intl Units Cap PO SCH (08:51)
[2017-02-26] MEDS: Simethicone 80 mg Chewtab PO SCH ×3 (08:56→17:14)
[2017-02-26] MEDS: Multivitamin Vitamin B Complex (Nephro-Vite) Tab PO SCH (08:57)
[2017-02-26] MEDS: Pantoprazole 40 mg EC Tab PO SCH (08:58)
[2017-02-26] MEDS ORDERED: Epoetin Alfa 4000 UNIT/ML Inj SC SCH (09:00)
[2017-02-26] MEDS ORDERED: CEFTAZIDIME IVPB SCH (09:00)
[2017-02-26] MEDS ORDERED: Gentamicin 80 mg/2mL Inj. IVPB SCH ×2 (09:00)
[2017-02-26] MEDS ORDERED: AVIBACTAM IVPB SCH (09:00)
[2017-02-26] MEDS ORDERED: Epoetin Alfa 20000 UNIT/ML Inj SC SCH (09:30)
[2017-02-26] MEDS ORDERED: Sodium Chloride 0.45% 1,000 ML IV SCH (12:00)
--- NOTE | 2017-02-26 14:54 | CP.PCM.PN ---
Subjective - Date & Time of Evaluation Date of Evaluation: 02/26/17 Time of Evaluation: 14:52 - Subjective Subjective: Patient and bed she just completed physiotherapy Patient is awake and conscious Hemodialysis starting vital signs stable Consent was stake in order was given and written Objective - Vital Signs/Intake and Output Vital Signs (last 24 hours): Temp Pulse Resp BP Pulse Ox 97.7 F 103 H 20 115/68 95 02/26/17 11:58 02/26/17 11:58 02/26/17 11:58 02/26/17 11:58 02/26/17 11:58 - Medications Medications: Current Medications Acetaminophen (Tylenol 325mg Tab) 650 mg PO Q4 PRN PRN Reason: Pain, Mild (1-3) Acetaminophen (Tylenol 325mg Tab) 325 mg PO Q4 PRN PRN Reason: Fever >100.4 F Apixaban (Eliquis) 5 mg PO BID [facility] PRN Reason: Protocol Last Admin: 02/26/17 08:51 Dose: 5 mg Aspirin (Ecotrin) 81 mg PO DAILY [facility] Last Admin: 02/26/17 08:51 Dose: 81 mg Atorvastatin Calcium (Lipitor) 40 mg PO HS [facility] Last Admin: 02/25/17 21:01 Dose: 40 mg Calcitriol (Rocaltrol) 0.25 mcg PO DAILY [facility] Last Admin: 02/26/17 08:59 Dose: 0.25 mcg Calcium Carbonate (Oscal) 500 mg PO BID [facility] Last Admin: 02/26/17 08:57 Dose: 500 mg Collagenase (Santyl) 1 applic TOP 0600 [facility] Last Admin: 02/26/17 05:47 Dose: 1 applic Docusate Sodium (Colace) 100 mg PO BID [facility] Last Admin: 02/26/17 08:49 Dose: 100 mg Epoetin Tha (Procrit) 6,000 unit [place] MWF [facility] Ergocalciferol (Drisdol 50,000 Intl Units Cap) 1 cap PO Q7D [facility] Last Admin: 02/26/17 08:51 Dose: 1 cap Fluconazole (Diflucan) 100 mg PO DAILY [facility] PRN Reason: Protocol Last Admin: 02/26/17 08:50 Dose: 100 mg Gabapentin (Neurontin) 300 mg PO TID [facility] Last Admin: 02/26/17 12:24 Dose: 300 mg Hydromorphone HCl (Dilaudid) 2 mg PO Q4 PRN PRN Reason: Pain scale 4-10 Last Admin: 02/26/17 13:06 Dose: 2 mg Ceftazidime/Avibactam 0.94 gm/ (Sodium Chloride) 100 mls @ 100 mls/hr IVPB [facility] [place] PRN Reason: Protocol Vancomycin HCl 250 mg/ Sodium (Chloride) 100 mls @ 100 mls/hr IVPB [facility] [place] PRN Reason: Protocol Gentamicin Sulfate 40 mg/ (Sodium Chloride) 101 mls @ 100 mls/hr IVPB [facility] [place] PRN Reason: Protocol Sodium Chloride (Sodium Chloride 0.45%) 1,000 mls @ 10 mls/hr IV .Q24H [facility] Stop: 02/27/17 11:49 Last Admin: 02/26/17 12:22 Dose: 10 mls/hr Lactobacillus Acidophilus (Bacid Acidophilus) 1 cap PO BID [facility] Last Admin: 02/26/17 08:48 Dose: 1 cap Lamotrigine (Lamictal) 100 mg PO Q12H [facility] Last Admin: 02/26/17 10:03 Dose: 100 mg Metoprolol Tartrate (Lopressor) 25 mg PO Q12 [facility] Last Admin: 02/26/17 09:01 Dose: 25 mg Ondansetron HCl (Zofran Inj) 4 mg IVP Q4 PRN PRN Reason: Nausea/Vomiting Pantoprazole Sodium (Protonix Ec Tab) 40 mg PO DAILY [facility] Last Admin: 02/26/17 08:58 Dose: 40 mg Polyethylene Glycol (Miralax) 17 gm PO HS [facility] Last Admin: 02/25/17 21:02 Dose: 17 gm Repaglinide (Prandin) 1 mg PO ACTID [facility] Last Admin: 02/26/17 12:23 Dose: 1 mg Sevelamer HCl (Renagel) 1,600 mg PO TID [facility] Last Admin: 02/26/17 12:22 Dose: 1,600 mg Simethicone (Mylicon Chew Tab) 80 mg PO TID [facility] Last Admin: 02/26/17 12:25 Dose: 80 mg Tobramycin/Dexamethasone (Tobradex Opht Susp) 1 drop OU Q6 [facility] Last Admin: 02/26/17 12:21 Dose: 1 drop Vitamin B Complex/Vit C/Folic Acid (Nephro-Ajay) 1 tab PO DAILY [facility] Last Admin: 02/26/17 08:57 Dose: 1 tab - Constitutional Appears: No Acute Distress - ENT Exam ENT Exam: Mucous Membranes Moist - Respiratory Exam Respiratory Exam: absent: Chest Wall Tenderness - Cardiovascular Exam Cardiovascular Exam: absent: JVD, Rubs - GI/Abdominal Exam GI & Abdominal Exam: Soft, Normal Bowel Sounds - Extremities Exam Extremities Exam: absent: Calf Tenderness - Back Exam Back Exam: absent: CVA tenderness (L), CVA tenderness (R) - Neurological Exam Neurological Exam: Alert - Psychiatric Exam Psychiatric exam: Normal Affect, Normal Mood Assessment and Plan (1) CKD (chronic kidney disease) stage V requiring chronic dialysis Assessment & Plan: And this stage renal disease patient receiving dialysis Ultrafiltration 3000 mL as tolerated Potassium bath 2 milliequivalents Bicarbonate bath 34 Discussed with the dialysis nurse The rest of the medical problem as noted in my previous note Antibiotics as per primary team Status: Acute (2) 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
[2017-02-26] MEDS ORDERED: Vancomycin 500 mg Inj IVPB SCH (17:00)
--- NOTE | 2017-02-26 17:12 | CP.PCM.PN ---
Subjective - Date & Time of Evaluation Date of Evaluation: 02/26/17 Time of Evaluation: 17:12 - Subjective Subjective: Patient is doing well just starting dialysis had PT/OT today denies sob/cp pain is well controlled continue with current care Objective - Vital Signs/Intake and Output Vital Signs (last 24 hours): Temp Pulse Resp BP Pulse Ox 97.7 F 103 H 20 115/68 95 02/26/17 11:58 02/26/17 11:58 02/26/17 11:58 02/26/17 11:58 02/26/17 11:58 - Medications Medications: Current Medications Acetaminophen (Tylenol 325mg Tab) 650 mg PO Q4 PRN PRN Reason: Pain, Mild (1-3) Acetaminophen (Tylenol 325mg Tab) 325 mg PO Q4 PRN PRN Reason: Fever >100.4 F Apixaban (Eliquis) 5 mg PO BID [facility] PRN Reason: Protocol Last Admin: 02/26/17 08:51 Dose: 5 mg Aspirin (Ecotrin) 81 mg PO DAILY [facility] Last Admin: 02/26/17 08:51 Dose: 81 mg Atorvastatin Calcium (Lipitor) 40 mg PO HS [facility] Last Admin: 02/25/17 21:01 Dose: 40 mg Calcitriol (Rocaltrol) 0.25 mcg PO DAILY [facility] Last Admin: 02/26/17 08:59 Dose: 0.25 mcg Calcium Carbonate (Oscal) 500 mg PO BID [facility] Last Admin: 02/26/17 08:57 Dose: 500 mg Collagenase (Santyl) 1 applic TOP 0600 [facility] Last Admin: 02/26/17 05:47 Dose: 1 applic Docusate Sodium (Colace) 100 mg PO BID [facility] Last Admin: 02/26/17 08:49 Dose: 100 mg Epoetin Tha (Procrit) 6,000 unit [place] MWF [facility] Ergocalciferol (Drisdol 50,000 Intl Units Cap) 1 cap PO Q7D [facility] Last Admin: 02/26/17 08:51 Dose: 1 cap Fluconazole (Diflucan) 100 mg PO DAILY [facility] PRN Reason: Protocol Last Admin: 02/26/17 08:50 Dose: 100 mg Gabapentin (Neurontin) 300 mg PO TID [facility] Last Admin: 02/26/17 12:24 Dose: 300 mg Hydromorphone HCl (Dilaudid) 2 mg PO Q4 PRN PRN Reason: Pain scale 4-10 Last Admin: 02/26/17 13:06 Dose: 2 mg Ceftazidime/Avibactam 0.94 gm/ (Sodium Chloride) 100 mls @ 100 mls/hr IVPB [facility] [place] PRN Reason: Protocol Vancomycin HCl 250 mg/ Sodium (Chloride) 100 mls @ 100 mls/hr IVPB [facility] [place] PRN Reason: Protocol Gentamicin Sulfate 40 mg/ (Sodium Chloride) 101 mls @ 100 mls/hr IVPB [facility] [place] PRN Reason: Protocol Sodium Chloride (Sodium Chloride 0.45%) 1,000 mls @ 10 mls/hr IV .Q24H [facility] Stop: 02/27/17 11:49 Last Admin: 02/26/17 12:22 Dose: 10 mls/hr Lactobacillus Acidophilus (Bacid Acidophilus) 1 cap PO BID [facility] Last Admin: 02/26/17 08:48 Dose: 1 cap Lamotrigine (Lamictal) 100 mg PO Q12H [facility] Last Admin: 02/26/17 10:03 Dose: 100 mg Metoprolol Tartrate (Lopressor) 25 mg PO Q12 [facility] Last Admin: 02/26/17 09:01 Dose: 25 mg Ondansetron HCl (Zofran Inj) 4 mg IVP Q4 PRN PRN Reason: Nausea/Vomiting Pantoprazole Sodium (Protonix Ec Tab) 40 mg PO DAILY [facility] Last Admin: 02/26/17 08:58 Dose: 40 mg Polyethylene Glycol (Miralax) 17 gm PO HS [facility] Last Admin: 02/25/17 21:02 Dose: 17 gm Repaglinide (Prandin) 1 mg PO ACTID [facility] Last Admin: 02/26/17 12:23 Dose: 1 mg Sevelamer HCl (Renagel) 1,600 mg PO TID [facility] Last Admin: 02/26/17 12:22 Dose: 1,600 mg Simethicone (Mylicon Chew Tab) 80 mg PO TID [facility] Last Admin: 02/26/17 12:25 Dose: 80 mg Tobramycin/Dexamethasone (Tobradex Opht Susp) 1 drop OU Q6 [facility] Last Admin: 02/26/17 12:21 Dose: 1 drop Vitamin B Complex/Vit C/Folic Acid (Nephro-Ajay) 1 tab PO DAILY [facility] Last Admin: 02/26/17 08:57 Dose: 1 tab
[2017-02-26 18:36] LABS: BASO # 0.1 K/uL (0.0-0.2); BASO % 0.8 % (0.0-2.0); EOS # 0.6 K/uL (0.0-0.7); EOS % 7.5 % (0.0-4.0); HEMATOCRIT 30.2 % (34.0-47.0); LYMPH # 1.5 K/uL (1.0-4.3); LYMPH % 19.2 % (20.0-40.0); MEAN CORPUSCULAR HEMOGLOBIN 28.6 pg (27.0-31.0); MEAN CORPUSCULAR HGB CONC 30.7 g/dL (33.0-37.0); MEAN PLATELET VOLUME 10.2 fl (7.2-11.7); MONO # 0.8 K/uL (0.0-0.8); MONO % 9.6 % (0.0-10.0); NEUT % 62.9 % (50.0-75.0); RED CELL DISTRIBUTION WIDTH 16.2 % (11.5-14.5); WHITE BLOOD COUNT 7.9 K/uL (4.8-10.8)
[2017-02-26 18:42] LABS: ALB/GLOB RATIO 1.1 (1.0-2.1); BILIRUBIN,TOTAL 0.3 mg/dl (0.2-1.3); CALCIUM 9.3 mg/dL (8.4-10.2); TOTAL PROTEIN 7.6 G/DL (6.3-8.2)
[2017-02-26 18:57] LABS: POTASSIUM 5.1 MMOL/L (3.6-5.0)
--- NOTE | 2017-02-26 20:13 | PN ---
ENDOCRINOLOGY FOLLOWUP NOTE DATE: LOCATION: Room 625 Rehab Unit SUBJECTIVE: This is a 46-year-old female with recent uncontrolled type 2 insulin-requiring diabetes now being followed closely for metabolic management. She underwent a recent right below-knee amputation with a previous left below-knee amputation being now a double amputee and is currently admitted here today to the acute rehab unit for physical and occupational therapy, especially in the upper mentioned disabling conditions.. Her glycemic levels are fluctuating, but much improved at this time and the latest glucose levels have ranged from 138 to 0143 mg/dL. Her chemistry levels are pending at this time. So, for now, we will continue the low-dose oral hypoglycemic drug therapy as given with Prandin given as 1 mg p.o. t.i.d. before meals as ordered. We will titrate incremental as indicated to optimize metabolic control. We will follow and advise accordingly. Irene Ambrose MD
[2017-02-26] MEDS: POLYETHYLENE GLYCOL 3350 17 GM/Dose PACKET PO SCH (21:38)
[2017-02-26] MEDS: Vancomycin 250 MG in Sodium Chloride 0.9% 100 ML IVPB SCH (23:13)
[2017-02-27] MEDS: Dexamethasone/Tobramycin Ophth Susp OU SCH ×4 (05:57→23:52)
[2017-02-27] MEDS: Santyl Collagenase OINTMENT TOP SCH (05:57)
[2017-02-27] MEDS: Lactobacillus Acidophilus 500 MU Cap PO SCH ×2 (08:25→16:46)
[2017-02-27] MEDS: Multivitamin Vitamin B Complex (Nephro-Vite) Tab PO SCH (08:27)
[2017-02-27] MEDS: Simethicone 80 mg Chewtab PO SCH ×3 (08:27→16:48)
[2017-02-27] MEDS: Pantoprazole 40 mg EC Tab PO SCH (08:28)
--- NOTE | 2017-02-27 11:25 | CP.PCM.PN ---
Subjective - Date & Time of Evaluation Date of Evaluation: 02/27/17 Time of Evaluation: 11:22 - Subjective Subjective: Patient is working hard at rehabilitation. Her left BK prosthsis does not appear to be fitting properly, and the plastic liner may be too long to prevent the screw from locking. I will ask Cleveland Mckeon to have a look, and we may need to call cardiology physician assistant back to re-evaluate. Glucoses are good at 120-150. Dr. Lemon is looking into the contact isolation issues, but the wounds are completely covered and should not pose a risk to anyone. Nasal congestion recurred. Will reorder Flonase nasal spray as a prn. Continues on 3 iv antibiotics and po fluconazole. Wound care proceeding well. Objective - Vital Signs/Intake and Output Vital Signs (last 24 hours): Temp Pulse Resp BP Pulse Ox 97.7 F 100 H 20 90/55 L 96 02/27/17 08:50 02/27/17 08:50 02/27/17 08:50 02/27/17 08:50 02/27/17 08:50 - Medications Medications: Current Medications Acetaminophen (Tylenol 325mg Tab) 650 mg PO Q4 PRN PRN Reason: Pain, Mild (1-3) Acetaminophen (Tylenol 325mg Tab) 325 mg PO Q4 PRN PRN Reason: Fever >100.4 F Apixaban (Eliquis) 5 mg PO BID [facility] PRN Reason: Protocol Last Admin: 02/27/17 08:26 Dose: 5 mg Aspirin (Ecotrin) 81 mg PO DAILY [facility] Last Admin: 02/27/17 08:26 Dose: 81 mg Atorvastatin Calcium (Lipitor) 40 mg PO HS [facility] Last Admin: 02/26/17 21:36 Dose: 40 mg Calcitriol (Rocaltrol) 0.25 mcg PO DAILY [facility] Last Admin: 02/27/17 08:28 Dose: 0.25 mcg Calcium Carbonate (Oscal) 500 mg PO BID [facility] Last Admin: 02/27/17 08:28 Dose: 500 mg Collagenase (Santyl) 1 applic TOP 0600 [facility] Last Admin: 02/27/17 05:57 Dose: 1 applic Docusate Sodium (Colace) 100 mg PO BID [facility] Last Admin: 02/27/17 08:25 Dose: 100 mg Epoetin Tha (Procrit) 6,000 unit [facility] Ergocalciferol (Drisdol 50,000 Intl Units Cap) 1 cap PO Q7D [facility] Last Admin: 02/26/17 08:51 Dose: 1 cap Fluconazole (Diflucan) 100 mg PO DAILY [facility] PRN Reason: Protocol Last Admin: 02/27/17 08:26 Dose: 100 mg Gabapentin (Neurontin) 300 mg PO TID [facility] Last Admin: 02/27/17 08:27 Dose: 300 mg Hydromorphone HCl (Dilaudid) 2 mg PO Q4 PRN PRN Reason: Pain scale 4-10 Last Admin: 02/27/17 08:22 Dose: 2 mg Ceftazidime/Avibactam 0.94 gm/ (Sodium Chloride) 100 mls @ 100 mls/hr IVPB [facility] [place] PRN Reason: Protocol Last Admin: 02/26/17 21:48 Dose: 100 mls/hr Vancomycin HCl 250 mg/ Sodium (Chloride) 100 mls @ 100 mls/hr IVPB [facility] [place] PRN Reason: Protocol Last Admin: 02/26/17 23:13 Dose: 100 mls/hr Gentamicin Sulfate 40 mg/ (Sodium Chloride) 101 mls @ 100 mls/hr IVPB [facility] [place] PRN Reason: Protocol Last Admin: 02/26/17 20:25 Dose: 100 mls/hr Sodium Chloride (Sodium Chloride 0.45%) 1,000 mls @ 10 mls/hr IV .Q24H [facility] Stop: 02/27/17 11:49 Last Admin: 02/26/17 12:22 Dose: 10 mls/hr Lactobacillus Acidophilus (Bacid Acidophilus) 1 cap PO BID [facility] Last Admin: 02/27/17 08:25 Dose: 1 cap Lamotrigine (Lamictal) 100 mg PO Q12H [facility] Last Admin: 02/27/17 08:27 Dose: 100 mg Metoprolol Tartrate (Lopressor) 25 mg PO Q12 [facility] Last Admin: 02/27/17 08:27 Dose: Not Given Ondansetron HCl (Zofran Inj) 4 mg IVP Q4 PRN PRN Reason: Nausea/Vomiting Pantoprazole Sodium (Protonix Ec Tab) 40 mg PO DAILY [facility] Last Admin: 02/27/17 08:28 Dose: 40 mg Polyethylene Glycol (Miralax) 17 gm PO HS [facility] Last Admin: 02/26/17 21:38 Dose: 17 gm Repaglinide (Prandin) 1 mg PO ACTID [facility] Last Admin: 02/27/17 07:20 Dose: 1 mg Sevelamer HCl (Renagel) 1,600 mg PO TID [facility] Last Admin: 02/27/17 08:28 Dose: 1,600 mg Simethicone (Mylicon Chew Tab) 80 mg PO TID [facility] Last Admin: 02/27/17 08:27 Dose: 80 mg Tobramycin/Dexamethasone (Tobradex Opht Susp) 1 drop OU Q6 [facility] Last Admin: 02/27/17 05:57 Dose: 1 drop Vitamin B Complex/Vit C/Folic Acid (Nephro-Ajay) 1 tab PO DAILY [facility] Last Admin: 02/27/17 08:27 Dose: 1 tab - Labs Labs: 02/26/17 18:00 02/26/17 18:00 - Constitutional Appears: No Acute Distress - Head Exam Head Exam: NORMAL INSPECTION - Eye Exam Additional comments: Less ieye irritation. - Neck Exam Neck Exam: Normal Inspection - Respiratory Exam Respiratory Exam: Clear to Ausculation Bilateral, NORMAL BREATHING PATTERN - Cardiovascular Exam Cardiovascular Exam: REGULAR RHYTHM, +S1, +S2 - GI/Abdominal Exam GI & Abdominal Exam: Soft - Extremities Exam Additional comments: Dressings intact RLE. - Back Exam Back Exam: NORMAL INSPECTION - Neurological Exam Neurological Exam: Alert, CN II-XII Intact, Oriented x3 Additional comments: See rehab notes. - Psychiatric Exam Psychiatric exam: Normal Affect, Normal Mood - Skin Skin Exam: Dry, Normal Color, Warm Assessment and Plan (1) Status post below knee amputation of right lower extremity Assessment & Plan: Making progress in healing and rehab. Status: Acute (2) Infection of amputation stump of right lower extremity Assessment & Plan: Will discuss antibiotic therapy with Dr. Lemon. Will need terminal gauger antibiotics because of osteomyelitis of RLE with MDR Klebsiella. Status: Acute (3) DM type 2 (diabetes mellitus, type 2) Assessment & Plan: Good control. Managed by Dr. Ambrose. Status: Chronic (4) ESRD (end stage renal disease) on dialysis Assessment & Plan: stable Status: Chronic (5) Diabetic retinopathy Assessment & Plan: L eye less irritated - on Tobradex drops. Status: Acute (6) Seizure disorder Status: Acute (7) Elevated liver enzymes Assessment & Plan: controlled. 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 Guadarrama is adjusting the epogen. Status: Acute (11) Peripheral arterial occlusive disease Status: Chronic (12) Hyperlipidemia Status: Chronic (13) Supraventricular tachycardia Status: Acute
[2017-02-27] MEDS ORDERED: Sodium Chloride 0.45% 1,000 ML IV SCH (11:30)
--- NOTE | 2017-02-27 18:23 | CP.PCM.PN ---
Subjective - Date & Time of Evaluation Date of Evaluation: 02/27/17 Time of Evaluation: 18:23 - Subjective Subjective: Patient is doing well and trying hard in spite of overwhelming impairments She is medically stable had dialysis yesterday pain is controlled continue current care Objective - Vital Signs/Intake and Output Vital Signs (last 24 hours): Temp Pulse Resp BP Pulse Ox 97.7 F 100 H 20 140/80 96 02/27/17 08:50 02/27/17 11:18 02/27/17 08:50 02/27/17 11:18 02/27/17 11:18 - Medications Medications: Current Medications Acetaminophen (Tylenol 325mg Tab) 650 mg PO Q4 PRN PRN Reason: Pain, Mild (1-3) Acetaminophen (Tylenol 325mg Tab) 325 mg PO Q4 PRN PRN Reason: Fever >100.4 F Apixaban (Eliquis) 5 mg PO BID [facility] PRN Reason: Protocol Last Admin: 02/27/17 16:48 Dose: 5 mg Aspirin (Ecotrin) 81 mg PO DAILY [facility] Last Admin: 02/27/17 08:26 Dose: 81 mg Atorvastatin Calcium (Lipitor) 40 mg PO HS [facility] Last Admin: 02/26/17 21:36 Dose: 40 mg Calcitriol (Rocaltrol) 0.25 mcg PO DAILY [facility] Last Admin: 02/27/17 08:28 Dose: 0.25 mcg Calcium Carbonate (Oscal) 500 mg PO BID [facility] Last Admin: 02/27/17 16:48 Dose: 500 mg Collagenase (Santyl) 1 applic TOP 0600 [facility] Last Admin: 02/27/17 05:57 Dose: 1 applic Docusate Sodium (Colace) 100 mg PO BID [facility] Last Admin: 02/27/17 16:48 Dose: 100 mg Epoetin Tha (Procrit) 6,000 unit SC MWF [facility] Ergocalciferol (Drisdol 50,000 Intl Units Cap) 1 cap PO Q7D [facility] Last Admin: 02/26/17 08:51 Dose: 1 cap Fluconazole (Diflucan) 100 mg PO DAILY [facility] PRN Reason: Protocol Last Admin: 02/27/17 08:26 Dose: 100 mg Fluticasone Propionate (Flonase) 1 spr ALLAN BID PRN PRN Reason: Dry nasal passages Gabapentin (Neurontin) 300 mg PO TID [facility] Last Admin: 02/27/17 16:48 Dose: 300 mg Hydromorphone HCl (Dilaudid) 2 mg PO Q4 PRN PRN Reason: Pain scale 4-10 Last Admin: 02/27/17 16:46 Dose: 2 mg Ceftazidime/Avibactam 0.94 gm/ (Sodium Chloride) 100 mls @ 100 mls/hr IVPB [facility] PRN Reason: Protocol Last Admin: 02/26/17 21:48 Dose: 100 mls/hr Vancomycin HCl 250 mg/ Sodium (Chloride) 100 mls @ 100 mls/hr IVPB [facility] PRN Reason: Protocol Last Admin: 02/26/17 23:13 Dose: 100 mls/hr Gentamicin Sulfate 40 mg/ (Sodium Chloride) 101 mls @ 100 mls/hr IVPB [facility] PRN Reason: Protocol Last Admin: 02/26/17 20:25 Dose: 100 mls/hr Sodium Chloride (Sodium Chloride 0.45%) 1,000 mls @ 10 mls/hr IV .Q24H [facility] Stop: 02/28/17 11:26 Last Admin: 02/27/17 12:55 Dose: 10 mls/hr Lactobacillus Acidophilus (Bacid Acidophilus) 1 cap PO BID [facility] Last Admin: 02/27/17 16:46 Dose: 1 cap Lamotrigine (Lamictal) 100 mg PO Q12H [facility] Last Admin: 02/27/17 08:27 Dose: 100 mg Metoprolol Tartrate (Lopressor) 25 mg PO Q12 [facility] Last Admin: 02/27/17 08:27 Dose: Not Given Ondansetron HCl (Zofran Inj) 4 mg IVP Q4 PRN PRN Reason: Nausea/Vomiting Pantoprazole Sodium (Protonix Ec Tab) 40 mg PO DAILY [facility] Last Admin: 02/27/17 08:28 Dose: 40 mg Polyethylene Glycol (Miralax) 17 gm PO HS [facility] Last Admin: 02/26/17 21:38 Dose: 17 gm Repaglinide (Prandin) 1 mg PO ACTID [facility] Last Admin: 02/27/17 16:48 Dose: 1 mg Sevelamer HCl (Renagel) 1,600 mg PO TID [facility] Last Admin: 02/27/17 16:47 Dose: 1,600 mg Simethicone (Mylicon Chew Tab) 80 mg PO TID [facility] Last Admin: 02/27/17 16:48 Dose: 80 mg Tobramycin/Dexamethasone (Tobradex Opht Susp) 1 drop OU Q6 [facility] Last Admin: 02/27/17 17:00 Dose: 1 drop Vitamin B Complex/Vit C/Folic Acid (Nephro-Ajay) 1 tab PO DAILY [facility] Last Admin: 02/27/17 08:27 Dose: 1 tab - Labs Labs: 02/26/17 18:00 02/26/17 18:00
--- NOTE | 2017-02-27 19:55 | PN ---
ENDOCRINOLOGY FOLLOWUP NOTE DATE: [facility]: Room 625. SUBJECTIVE: This is a 46-year-old female with recent uncontrolled type 2 insulin-requiring diabetes, now being followed closely for metabolic management. Her glycemic levels are fluctuating, but much improved at this time and the latest glucose levels have ranged from 113 to 193 mg/dL. Her latest chemistry shows a BUN of 79, sodium 142, potassium 5.1, chloride 100, CO2 24, glucose 152, and creatinine 7.2. ASSESSMENT AND PLAN: So, at this time, we will continue the low-dose oral hypoglycemic therapy with Prandin given as 1 mg p.o. t.i.d. before meals as ordered. We will titrate incremental as indicated to optimize metabolic control. We will follow and advise accordingly. Irene Ambrose MD
[2017-02-27] MEDS: POLYETHYLENE GLYCOL 3350 17 GM/Dose PACKET PO SCH (21:42)
[2017-02-28] MEDS: Santyl Collagenase OINTMENT TOP SCH (07:41)
[2017-02-28] MEDS: Dexamethasone/Tobramycin Ophth Susp OU SCH ×4 (07:42→23:43)
[2017-02-28] MEDS: Multivitamin Vitamin B Complex (Nephro-Vite) Tab PO SCH (09:39)
[2017-02-28] MEDS: Simethicone 80 mg Chewtab PO SCH ×3 (09:39→17:27)
[2017-02-28] MEDS: Lactobacillus Acidophilus 500 MU Cap PO SCH ×2 (09:43→19:10)
[2017-02-28] MEDS: Pantoprazole 40 mg EC Tab PO SCH (10:00)
[2017-02-28] MEDS: Vancomycin 250 MG in Sodium Chloride 0.9% 100 ML IVPB SCH ×2 (10:24→19:24)
--- NOTE | 2017-02-28 14:58 | CP.PCM.PN ---
Subjective - Date & Time of Evaluation Date of Evaluation: 02/28/17 Time of Evaluation: 14:57 - Subjective Subjective: Patient seen getting max A x2 into bed remains motivated pain is well controlled continue PT/OT Objective - Vital Signs/Intake and Output Vital Signs (last 24 hours): Temp Pulse Resp BP Pulse Ox 98 F 109 H 20 173/97 H 98 02/28/17 10:00 02/28/17 10:00 02/28/17 10:00 02/28/17 10:00 02/28/17 10:00 - Medications Medications: Current Medications Acetaminophen (Tylenol 325mg Tab) 650 mg PO Q4 PRN PRN Reason: Pain, Mild (1-3) Acetaminophen (Tylenol 325mg Tab) 325 mg PO Q4 PRN PRN Reason: Fever >100.4 F Apixaban (Eliquis) 5 mg PO BID [facility] PRN Reason: Protocol Last Admin: 02/28/17 09:37 Dose: 5 mg Aspirin (Ecotrin) 81 mg PO DAILY [facility] Last Admin: 02/28/17 09:37 Dose: 81 mg Atorvastatin Calcium (Lipitor) 40 mg PO HS [facility] Last Admin: 02/27/17 21:39 Dose: 40 mg Calcitriol (Rocaltrol) 0.25 mcg PO DAILY [facility] Last Admin: 02/28/17 09:37 Dose: 0.25 mcg Calcium Carbonate (Oscal) 500 mg PO BID [facility] Last Admin: 02/28/17 09:39 Dose: 500 mg Collagenase (Santyl) 1 applic TOP 0600 [facility] [place] Last Admin: 02/28/17 07:41 Dose: 1 applic Docusate Sodium (Colace) 100 mg PO BID [facility] [place] Last Admin: 02/28/17 09:36 Dose: 100 mg Epoetin Tha (Procrit) 6,000 unit SC MWF [facility] Ergocalciferol (Drisdol 50,000 Intl Units Cap) 1 cap PO Q7D [facility] Last Admin: 02/26/17 08:51 Dose: 1 cap Fluconazole (Diflucan) 100 mg PO DAILY [facility] [place] PRN Reason: Protocol Last Admin: 02/28/17 09:37 Dose: 100 mg Fluticasone Propionate (Flonase) 1 spr ALLAN BID PRN PRN Reason: Dry nasal passages Gabapentin (Neurontin) 300 mg PO TID [facility] [place] Last Admin: 02/28/17 13:16 Dose: 300 mg Hydromorphone HCl (Dilaudid) 2 mg PO Q4 PRN PRN Reason: Pain scale 4-10 Last Admin: 02/28/17 09:48 Dose: 2 mg Vancomycin HCl 250 mg/ Sodium (Chloride) 100 mls @ 100 mls/hr IVPB MWF@2000 [facility] PRN Reason: Protocol Ceftazidime/Avibactam 0.94 gm/ (Sodium Chloride) 100 mls @ 100 mls/hr IVPB MWF@ 2100 [facility] [place] PRN Reason: Protocol Gentamicin Sulfate 40 mg/ (Sodium Chloride) 101 mls @ 100 mls/hr IVPB MWF@2000 [facility] PRN Reason: Protocol Lactobacillus Acidophilus (Bacid Acidophilus) 1 cap PO BID [facility] Last Admin: 02/28/17 09:43 Dose: 1 cap Lamotrigine (Lamictal) 100 mg PO Q12H [facility] [place] Last Admin: 02/28/17 09:38 Dose: 100 mg Metoprolol Tartrate (Lopressor) 25 mg PO Q12 [facility] [place] Last Admin: 02/28/17 09:38 Dose: 25 mg Ondansetron HCl (Zofran Inj) 4 mg IVP Q4 PRN PRN Reason: Nausea/Vomiting Pantoprazole Sodium (Protonix Ec Tab) 40 mg PO DAILY [facility] [place] Last Admin: 02/28/17 10:00 Dose: 40 mg Polyethylene Glycol (Miralax) 17 gm PO HS [facility] [place] Last Admin: 02/27/17 21:42 Dose: Not Given Repaglinide (Prandin) 1 mg PO ACTID [facility] [place] Last Admin: 02/28/17 11:30 Dose: 1 mg Sevelamer HCl (Renagel) 1,600 mg PO TID [facility] [place] Last Admin: 02/28/17 13:15 Dose: 1,600 mg Simethicone (Mylicon Chew Tab) 80 mg PO TID [facility] [place] Last Admin: 02/28/17 13:16 Dose: 80 mg Tobramycin/Dexamethasone (Tobradex Opht Susp) 1 drop OU Q6 [facility] [place] Last Admin: 02/28/17 12:00 Dose: 1 drop Vitamin B Complex/Vit C/Folic Acid (Nephro-Ajay) 1 tab PO DAILY [facility] [place] Last Admin: 02/28/17 09:39 Dose: 1 tab - Labs Labs: 02/26/17 18:00 02/26/17 18:00
--- NOTE | 2017-02-28 15:36 | CP.PCM.PN ---
Subjective - Date & Time of Evaluation Date of Evaluation: 02/28/17 Time of Evaluation: 15:33 - Subjective Subjective: Patient in bed awake and conscious Patient is in good spirit Patient reported to have a good appetite Patient having dialysis right now Order in place Vital sign noted to be okay Dialysis orders reviewed with the dialysis nurse the bedside Sodium bath 138 Potassium past 2 mEq Bicarbonate bacillary for Ultrafiltration 3000 mL Impression and plan Basically no changes with end stage renal disease on maintenance hemodialysis MWF Status post amputation below-knee . Anemia on EPO Hyperphosphatemia on binder Chest no rales Heart no rubs Abdomen soft Objective - Vital Signs/Intake and Output Vital Signs (last 24 hours): Temp Pulse Resp BP Pulse Ox 98 F 109 H 20 173/97 H 98 02/28/17 10:00 02/28/17 10:00 02/28/17 10:00 02/28/17 10:00 02/28/17 10:00 - Medications Medications: Current Medications Acetaminophen (Tylenol 325mg Tab) 650 mg PO Q4 PRN PRN Reason: Pain, Mild (1-3) Acetaminophen (Tylenol 325mg Tab) 325 mg PO Q4 PRN PRN Reason: Fever >100.4 F Apixaban (Eliquis) 5 mg PO BID [facility] PRN Reason: Protocol Last Admin: 02/28/17 09:37 Dose: 5 mg Aspirin (Ecotrin) 81 mg PO DAILY [facility] Last Admin: 02/28/17 09:37 Dose: 81 mg Atorvastatin Calcium (Lipitor) 40 mg PO HS [facility] Last Admin: 02/27/17 21:39 Dose: 40 mg Calcitriol (Rocaltrol) 0.25 mcg PO DAILY [facility] Last Admin: 02/28/17 09:37 Dose: 0.25 mcg Calcium Carbonate (Oscal) 500 mg PO BID [facility] Last Admin: 02/28/17 09:39 Dose: 500 mg Collagenase (Santyl) 1 applic TOP 0600 [facility] Last Admin: 02/28/17 07:41 Dose: 1 applic Docusate Sodium (Colace) 100 mg PO BID [facility] Last Admin: 02/28/17 09:36 Dose: 100 mg Epoetin Tha (Procrit) 6,000 unit SC MWF [facility] Ergocalciferol (Drisdol 50,000 Intl Units Cap) 1 cap PO Q7D [facility] Last Admin: 02/26/17 08:51 Dose: 1 cap Fluconazole (Diflucan) 100 mg PO DAILY [facility] PRN Reason: Protocol Last Admin: 02/28/17 09:37 Dose: 100 mg Fluticasone Propionate (Flonase) 1 spr ALLAN BID PRN PRN Reason: Dry nasal passages Gabapentin (Neurontin) 300 mg PO TID [facility] Last Admin: 02/28/17 13:16 Dose: 300 mg Hydromorphone HCl (Dilaudid) 2 mg PO Q4 PRN PRN Reason: Pain scale 4-10 Last Admin: 02/28/17 09:48 Dose: 2 mg Vancomycin HCl 250 mg/ Sodium (Chloride) 100 mls @ 100 mls/hr IVPB MWF@2000 [facility] PRN Reason: Protocol Ceftazidime/Avibactam 0.94 gm/ (Sodium Chloride) 100 mls @ 100 mls/hr IVPB MWF@ 2100 [facility] PRN Reason: Protocol Gentamicin Sulfate 40 mg/ (Sodium Chloride) 101 mls @ 100 mls/hr IVPB MWF@2000 [facility] PRN Reason: Protocol Lactobacillus Acidophilus (Bacid Acidophilus) 1 cap PO BID [facility] Last Admin: 02/28/17 09:43 Dose: 1 cap Lamotrigine (Lamictal) 100 mg PO Q12H [facility] Last Admin: 02/28/17 09:38 Dose: 100 mg Metoprolol Tartrate (Lopressor) 25 mg PO Q12 [facility] Last Admin: 02/28/17 09:38 Dose: 25 mg Ondansetron HCl (Zofran Inj) 4 mg IVP Q4 PRN PRN Reason: Nausea/Vomiting Pantoprazole Sodium (Protonix Ec Tab) 40 mg PO DAILY [facility] Last Admin: 02/28/17 10:00 Dose: 40 mg Polyethylene Glycol (Miralax) 17 gm PO HS [facility] Last Admin: 02/27/17 21:42 Dose: Not Given Repaglinide (Prandin) 1 mg PO ACTID [facility] Last Admin: 02/28/17 11:30 Dose: 1 mg Sevelamer HCl (Renagel) 1,600 mg PO TID [facility] Last Admin: 02/28/17 13:15 Dose: 1,600 mg Simethicone (Mylicon Chew Tab) 80 mg PO TID [facility] Last Admin: 02/28/17 13:16 Dose: 80 mg Tobramycin/Dexamethasone (Tobradex Opht Susp) 1 drop OU Q6 [facility] Last Admin: 02/28/17 12:00 Dose: 1 drop Vitamin B Complex/Vit C/Folic Acid (Nephro-Ajay) 1 tab PO DAILY [facility] Last Admin: 02/28/17 09:39 Dose: 1 tab - Labs Labs: 02/26/17 18:00 02/26/17 18:00 Assessment and Plan (1) CKD (chronic kidney disease) stage V requiring chronic dialysis Status: Acute (2) 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
[2017-02-28] MEDS ORDERED: Epoetin Alfa 20000 UNIT/ML Inj SC SCH (16:00)
[2017-02-28] MEDS: Sodium Chloride 0.9% 500 ML IV SCH (19:16)
[2017-02-28] MEDS: POLYETHYLENE GLYCOL 3350 17 GM/Dose PACKET PO SCH (21:30)
--- NOTE | 2017-02-28 23:57 | PN ---
DATE: LOCATION: Room #[facility] SUBJECTIVE: This is a 46-year-old female with recent uncontrolled type 2 insulin-requiring diabetes, now taken off all insulin therapy with continued improved metabolic profile as noted thereof. LABORATORY DATA: Her latest chemistry showed a BUN of 79, sodium 142, potassium 5.1, chloride 100, CO2 of 24, glucose 152, and creatinine 7.2. Her hemoglobin A1c is now near optimal at this time with a level of 6.9%. The latest glucose levels today have ranged from 113 to 131 and 183 mg/dL. ASSESSMENT AND PLAN: So at this time, we will continue the same low dose Prandin given as 1 mg p.o. t.i.d. before meals as ordered. We will titrate incremental as indicated to optimize metabolic control. We will follow. Irene Ambrose MD
[2017-03-01] MEDS: Santyl Collagenase OINTMENT TOP SCH (06:05)
[2017-03-01] MEDS: Dexamethasone/Tobramycin Ophth Susp OU SCH ×4 (06:05→23:28)
[2017-03-01] MEDS: Lactobacillus Acidophilus 500 MU Cap PO SCH ×2 (08:40→17:15)
[2017-03-01] MEDS: Multivitamin Vitamin B Complex (Nephro-Vite) Tab PO SCH (08:40)
[2017-03-01] MEDS: Simethicone 80 mg Chewtab PO SCH ×3 (08:42→17:15)
[2017-03-01] MEDS: Pantoprazole 40 mg EC Tab PO SCH (08:43)
--- NOTE | 2017-03-01 12:41 | PN ---
DATE: ENDO FOLLOWUP NOTE ROOM: 625. SUBJECTIVE: This is a 46-year-old female with recent uncontrolled type 2 diabetes, now taken off all insulin therapy and doing very well metabolically on just a low-dose oral hypoglycemic drug therapy as given. Her hemoglobin A1c is actually 6.9%, which has improved remarkably since admission. Her glucose values have ranged from 131-177 and 183 mg/dL. So, at this time, we will continue the low-dose correction scale using Prandin given as 1 mg p.o. t.i.d. before meals as ordered. We will obtain serial chemistries and supplement accordingly as needed. She is also undergoing acute rehabilitation therapy for the recent right below-knee amputation with previous left below-knee amputation undertaken. She also has ongoing IV antibiotics for the management of underlying severe osteomyelitis. We will follow. Irene Ambrose MD cc:
--- NOTE | 2017-03-01 16:04 | CP.PCM.PN ---
Subjective - Date & Time of Evaluation Date of Evaluation: 03/01/17 Time of Evaluation: 16:01 - Subjective Subjective: Patient was up in wheelchair - had a little trouble navigating because right hand is stronger than left... Bowels working too well now - so will decrease the Miralax to 8.5 g in 8 oz of Nepro q evening. Continues on IV Avycaz, Gentamicin, and Vancomycin q MWF post dialysis and on po fluconazole daily because of infected wound R BK. DM controlled - am glucose was 118. No seizures - on Lamictal. Objective - Vital Signs/Intake and Output Vital Signs (last 24 hours): Temp Pulse Resp BP Pulse Ox 97.5 F L 99 H 19 150/87 96 03/01/17 10:00 03/01/17 10:00 03/01/17 10:00 03/01/17 10:00 03/01/17 10:00 Intake and Output: 03/01/17 03/01/17 06:59 18:59 Intake Total 520 Balance 520 - Medications Medications: Current Medications Acetaminophen (Tylenol 325mg Tab) 650 mg PO Q4 PRN PRN Reason: Pain, Mild (1-3) Acetaminophen (Tylenol 325mg Tab) 325 mg PO Q4 PRN PRN Reason: Fever >100.4 F Apixaban (Eliquis) 5 mg PO BID [facility] PRN Reason: Protocol Last Admin: 03/01/17 08:42 Dose: 5 mg Aspirin (Ecotrin) 81 mg PO DAILY [facility] Last Admin: 03/01/17 08:43 Dose: 81 mg Atorvastatin Calcium (Lipitor) 40 mg PO HS [facility] Last Admin: 02/28/17 21:09 Dose: 40 mg Calcitriol (Rocaltrol) 0.25 mcg PO DAILY [facility] Last Admin: 03/01/17 08:42 Dose: 0.25 mcg Calcium Carbonate (Oscal) 500 mg PO BID [facility] Last Admin: 03/01/17 08:40 Dose: 500 mg Collagenase (Santyl) 1 applic TOP 0600 [facility] Last Admin: 03/01/17 06:05 Dose: 1 applic Docusate Sodium (Colace) 100 mg PO BID [facility] Last Admin: 03/01/17 08:41 Dose: 100 mg Epoetin Tha (Procrit) 6,000 unit SC MWF [facility] Last Admin: 02/28/17 17:25 Dose: 6,000 unit Ergocalciferol (Drisdol 50,000 Intl Units Cap) 1 cap PO Q7D [facility] Last Admin: 02/26/17 08:51 Dose: 1 cap Fluconazole (Diflucan) 100 mg PO DAILY [facility] PRN Reason: Protocol Last Admin: 03/01/17 08:42 Dose: 100 mg Fluticasone Propionate (Flonase) 1 spr ALLAN BID PRN PRN Reason: Dry nasal passages Gabapentin (Neurontin) 300 mg PO TID [facility] Last Admin: 03/01/17 12:10 Dose: 300 mg Hydromorphone HCl (Dilaudid) 2 mg PO Q4 PRN PRN Reason: Pain scale 4-10 Last Admin: 03/01/17 08:49 Dose: 2 mg Vancomycin HCl 250 mg/ Sodium (Chloride) 100 mls @ 100 mls/hr IVPB MWF@2000 [facility] PRN Reason: Protocol Last Admin: 02/28/17 19:24 Dose: 100 mls/hr Ceftazidime/Avibactam 0.94 gm/ (Sodium Chloride) 100 mls @ 100 mls/hr IVPB MWF@ 2100 [facility] PRN Reason: Protocol Last Admin: 02/28/17 21:08 Dose: 100 mls/hr Gentamicin Sulfate 40 mg/ (Sodium Chloride) 101 mls @ 100 mls/hr IVPB MWF@2000 [facility] PRN Reason: Protocol Last Admin: 02/28/17 19:57 Dose: 100 mls/hr Sodium Chloride (Sodium Chloride 0.9%) 500 mls @ 10 mls/hr IV .Q24H [facility] Last Admin: 02/28/17 19:16 Dose: 10 mls/hr Lactobacillus Acidophilus (Bacid Acidophilus) 1 cap PO BID [facility] Last Admin: 03/01/17 08:40 Dose: 1 cap Lamotrigine (Lamictal) 100 mg PO Q12H [facility] Last Admin: 03/01/17 09:51 Dose: 100 mg Metoprolol Tartrate (Lopressor) 25 mg PO Q12 [facility] Last Admin: 03/01/17 08:41 Dose: 25 mg Ondansetron HCl (Zofran Inj) 4 mg IVP Q4 PRN PRN Reason: Nausea/Vomiting Pantoprazole Sodium (Protonix Ec Tab) 40 mg PO DAILY [facility] Last Admin: 03/01/17 08:43 Dose: 40 mg Polyethylene Glycol (Miralax) 17 gm PO HS [facility] Last Admin: 02/28/17 21:30 Dose: Not Given Repaglinide (Prandin) 1 mg PO ACTID [facility] Last Admin: 03/01/17 12:10 Dose: 1 mg Sevelamer HCl (Renagel) 1,600 mg PO TID [facility] Last Admin: 03/01/17 12:10 Dose: 1,600 mg Simethicone (Mylicon Chew Tab) 80 mg PO TID [facility] Last Admin: 03/01/17 12:11 Dose: 80 mg Tobramycin/Dexamethasone (Tobradex Opht Susp) 1 drop OU Q6 [facility] Last Admin: 03/01/17 12:12 Dose: 1 drop Vitamin B Complex/Vit C/Folic Acid (Nephro-Ajay) 1 tab PO DAILY [facility] Last Admin: 03/01/17 08:40 Dose: 1 tab - Labs Labs: 02/26/17 18:00 02/26/17 18:00 - Constitutional Appears: No Acute Distress - Head Exam Head Exam: NORMAL INSPECTION - Eye Exam Additional comments: Left eye still appears irritated. s/p LASER treatment - ENT Exam ENT Exam: Mucous Membranes Moist - Neck Exam Neck Exam: Normal Inspection - Respiratory Exam Respiratory Exam: Clear to Ausculation Bilateral, NORMAL BREATHING PATTERN - Cardiovascular Exam Cardiovascular Exam: REGULAR RHYTHM, +S1, +S2 - GI/Abdominal Exam GI & Abdominal Exam: Soft - Extremities Exam Additional comments: Dressings and wound vac intact RLE. PICC line intact L femoral vein. Hands and L residual lower limb warm. - Back Exam Back Exam: NORMAL INSPECTION - Neurological Exam Neurological Exam: Alert, CN II-XII Intact, Oriented x3 - Psychiatric Exam Psychiatric exam: Normal Affect, Normal Mood - Skin Skin Exam: Dry, Normal Color, Warm Assessment and Plan (1) Elevated liver enzymes Status: Acute (2) Status post below knee amputation of right lower extremity Assessment & Plan: Making progress in rehab. Status: Acute (3) Infection of amputation stump of right lower extremity Assessment & Plan: We need to continue antibiotics for at least 8 weeks post healing of wounds. Status: Acute (4) DM type 2 (diabetes mellitus, type 2) Assessment & Plan: Controlled. Status: Chronic (5) ESRD (end stage renal disease) on dialysis Assessment & Plan: Will ask Dr. Guadarrama if epogen can be given IV at dialysis time instead of subcut. tiw. 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 Status: Acute (11) Peripheral arterial occlusive disease Status: Chronic (12) Hyperlipidemia Status: Chronic (13) Supraventricular tachycardia Status: Acute - Assessment and Plan (Free Text) Assessment: BLOOD WORK ORDERED TO BE DONE BY DIALYSIS NURSE ON SATURDAY 03/03: CBC, CMP, FE/ TIBC, FERRITIN, VANCO AND GENTAMICIN TROUGH LEVELS.
[2017-03-01] MEDS ORDERED: POLYETHYLENE GLYCOL 3350 17 GM/Dose PACKET PO SCH (16:15)
[2017-03-01] MEDS: Sodium Chloride 0.9% 500 ML IV SCH ×3 (18:45)
[2017-03-01] MEDS: POLYETHYLENE GLYCOL 3350 17 GM/Dose PACKET PO SCH (22:12)
[2017-03-02] MEDS: Santyl Collagenase OINTMENT TOP SCH (05:53)
[2017-03-02] MEDS: Dexamethasone/Tobramycin Ophth Susp OU SCH ×4 (05:53→23:39)
[2017-03-02] MEDS: Lactobacillus Acidophilus 500 MU Cap PO SCH ×2 (08:54→17:13)
[2017-03-02] MEDS: Pantoprazole 40 mg EC Tab PO SCH (08:55)
[2017-03-02] MEDS: Multivitamin Vitamin B Complex (Nephro-Vite) Tab PO SCH (08:59)
[2017-03-02] MEDS: Simethicone 80 mg Chewtab PO SCH ×3 (09:00→17:08)
--- NOTE | 2017-03-02 11:39 | PN ---
DATE: ENDOCRINOLOGY FOLLOWUP NOTE LOCATION: Room 625. SUBJECTIVE: This is a 46-year-old female with recent uncontrolled type 2 diabetes, now being followed closely for metabolic management and continues to have improved glycemic and metabolic profile regarding her diabetic management. Her latest glucose today is 156 and the latest chemistry showed a BUN of 79, sodium 142, potassium 5.1, chloride 100, CO2 of 24, glucose 152, and creatinine 7.2. So, at this time, we had actually discontinued all the basal and bolus insulin regimen as previously ordered. She continues to do very well on just a low dose oral hypoglycemic drug therapy as given with Prandin given as 1 mg p.o. t.i.d. before meals as ordered. We will titrate incremental as indicated to optimize metabolic control. We will follow. Irene Ambrose MD
--- NOTE | 2017-03-02 16:14 | CP.PCM.PN ---
Subjective - Date & Time of Evaluation Date of Evaluation: 03/02/17 Time of Evaluation: 16:11 - Subjective Subjective: Resting today. Has been working hard at rehabilitation and making progress in transfers and standing on left prosthesis. Problems with this prosthesis resolved with the help of [place] Mckeon. Receives iv Avycaz, gentamicin, and vancomycin MWF following hemodialysis. Also on po fluconazole. For wound vac change tomorrow or on 03/04. Blood work ordered for tomorrow: CBC, CMP, Fe/TIBC, ferritin, vanco and gentamicin trough levels. No seizures. Glucoses OK (156 this afternoon). Objective - Vital Signs/Intake and Output Vital Signs (last 24 hours): Temp Pulse Resp BP Pulse Ox 97.8 F 102 H 19 156/79 H 100 03/02/17 09:19 03/02/17 09:19 03/02/17 09:19 03/02/17 09:19 03/02/17 09:19 Intake and Output: 03/02/17 03/02/17 06:59 18:59 Intake Total 270 Balance 270 - Medications Medications: Current Medications Acetaminophen (Tylenol 325mg Tab) 650 mg PO Q4 PRN PRN Reason: Pain, Mild (1-3) Acetaminophen (Tylenol 325mg Tab) 325 mg PO Q4 PRN PRN Reason: Fever >100.4 F Apixaban (Eliquis) 5 mg PO BID [facility] PRN Reason: Protocol Last Admin: 03/02/17 08:56 Dose: 5 mg Aspirin (Ecotrin) 81 mg PO DAILY [facility] Last Admin: 03/02/17 08:56 Dose: 81 mg Atorvastatin Calcium (Lipitor) 40 mg PO HS [facility] Last Admin: 03/01/17 21:58 Dose: 40 mg Calcitriol (Rocaltrol) 0.25 mcg PO DAILY [facility] Last Admin: 03/02/17 08:56 Dose: 0.25 mcg Calcium Carbonate (Oscal) 500 mg PO BID [facility] Last Admin: 03/02/17 08:57 Dose: 500 mg Collagenase (Santyl) 1 applic TOP 0600 [facility] Last Admin: 03/02/17 05:53 Dose: 1 applic Docusate Sodium (Colace) 100 mg PO BID [facility] Last Admin: 03/02/17 08:55 Dose: 100 mg Epoetin Tha (Procrit) 6,000 unit SC F [facility] Last Admin: 02/28/17 17:25 Dose: 6,000 unit Ergocalciferol (Drisdol 50,000 Intl Units Cap) 1 cap PO Q7D [facility] Last Admin: 02/26/17 08:51 Dose: 1 cap Fluconazole (Diflucan) 100 mg PO DAILY [facility] PRN Reason: Protocol Last Admin: 03/02/17 08:55 Dose: 100 mg Fluticasone Propionate (Flonase) 1 spr ALLAN BID PRN PRN Reason: Dry nasal passages Gabapentin (Neurontin) 300 mg PO TID [facility] Last Admin: 03/02/17 12:40 Dose: 300 mg Hydromorphone HCl (Dilaudid) 2 mg PO Q4 PRN PRN Reason: Pain scale 4-10 Last Admin: 03/01/17 22:20 Dose: 2 mg Vancomycin HCl 250 mg/ Sodium (Chloride) 100 mls @ 100 mls/hr IVPB MWF@2000 [facility] PRN Reason: Protocol Last Admin: 02/28/17 19:24 Dose: 100 mls/hr Ceftazidime/Avibactam 0.94 gm/ (Sodium Chloride) 100 mls @ 100 mls/hr IVPB MWF@ 2100 [facility] PRN Reason: Protocol Last Admin: 02/28/17 21:08 Dose: 100 mls/hr Gentamicin Sulfate 40 mg/ (Sodium Chloride) 101 mls @ 100 mls/hr IVPB MWF@2000 [facility] PRN Reason: Protocol Last Admin: 02/28/17 19:57 Dose: 100 mls/hr Sodium Chloride (Sodium Chloride 0.9%) 500 mls @ 10 mls/hr IV .Q24H [facility] Last Admin: 03/01/17 18:45 Dose: Not Given Lactobacillus Acidophilus (Bacid Acidophilus) 1 cap PO BID [facility] Last Admin: 03/02/17 08:54 Dose: 1 cap Lamotrigine (Lamictal) 100 mg PO Q12H [facility] Last Admin: 03/02/17 08:59 Dose: 100 mg Metoprolol Tartrate (Lopressor) 25 mg PO Q12 [facility] Last Admin: 03/02/17 08:59 Dose: 25 mg Ondansetron HCl (Zofran Inj) 4 mg IVP Q4 PRN PRN Reason: Nausea/Vomiting Pantoprazole Sodium (Protonix Ec Tab) 40 mg PO DAILY [facility] Last Admin: 03/02/17 08:55 Dose: 40 mg Polyethylene Glycol (Miralax) 8.5 gm PO DAILY@2200 [facility] Last Admin: 03/01/17 22:12 Dose: Not Given Repaglinide (Prandin) 1 mg PO ACTID [facility] Last Admin: 03/02/17 12:00 Dose: 1 mg Sevelamer HCl (Renagel) 1,600 mg PO TID [facility] Last Admin: 03/02/17 12:40 Dose: 1,600 mg Simethicone (Mylicon Chew Tab) 80 mg PO TID [facility] Last Admin: 03/02/17 12:41 Dose: 80 mg Tobramycin/Dexamethasone (Tobradex Opht Susp) 1 drop OU Q6 [facility] Last Admin: 03/02/17 12:41 Dose: 1 drop Vitamin B Complex/Vit C/Folic Acid (Nephro-Ajay) 1 tab PO DAILY [facility] Last Admin: 03/02/17 08:59 Dose: 1 tab - Labs Labs: 02/26/17 18:00 02/26/17 18:00 - Constitutional Appears: No Acute Distress - Eye Exam Eye Exam: Normal appearance - ENT Exam ENT Exam: Mucous Membranes Moist - Neck Exam Neck Exam: Normal Inspection - GI/Abdominal Exam GI & Abdominal Exam: Soft, Normal Bowel Sounds - Extremities Exam Additional comments: Hands and left residual limb warm and without new lesions. RLE in wound vac and dressings. - Back Exam Back Exam: NORMAL INSPECTION - Neurological Exam Neurological Exam: Alert, Awake, CN II-XII Intact, Oriented x3 - Psychiatric Exam Psychiatric exam: Normal Affect, Normal Mood - Skin Skin Exam: Normal Color, Warm Assessment and Plan (1) Elevated liver enzymes Status: Acute (2) Status post below knee amputation of right lower extremity Status: Acute (3) Infection of amputation stump of right lower extremity Status: Acute (4) DM type 2 (diabetes mellitus, type 2) Status: Chronic (5) ESRD (end stage renal disease) on dialysis Status: Chronic (6) Diabetic retinopathy Status: Acute (7) Seizure disorder Status: Acute (8) Gallstones without obstruction of gallbladder Status: Acute (9) Coagulopathy Status: Chronic (10) 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
[2017-03-02] MEDS ORDERED: Sodium Chloride 0.9% 500 ML IV SCH (17:45)
[2017-03-02] MEDS: POLYETHYLENE GLYCOL 3350 17 GM/Dose PACKET PO SCH (21:57)
[2017-03-03] MEDS: Santyl Collagenase OINTMENT TOP SCH (06:40)
[2017-03-03] MEDS: Dexamethasone/Tobramycin Ophth Susp OU SCH ×4 (06:40→23:20)
--- NOTE | 2017-03-03 07:55 | CP.PCM.PN ---
Subjective - Date & Time of Evaluation Date of Evaluation: 03/03/17 Time of Evaluation: 07:52 - Subjective Subjective: No changes reported Patient receiving physiotherapy at the acute rehabilitation floor Vital signs stable Appetite is okay Objective - Vital Signs/Intake and Output Vital Signs (last 24 hours): Temp Pulse Resp BP Pulse Ox 98.1 F 97 H 20 151/70 H 95 03/02/17 20:00 03/02/17 21:58 03/02/17 20:00 03/02/17 21:58 03/02/17 20:00 Intake and Output: 03/03/17 03/03/17 06:59 18:59 Intake Total 640 Balance 640 - Medications Medications: Current Medications Acetaminophen (Tylenol 325mg Tab) 650 mg PO Q4 PRN PRN Reason: Pain, Mild (1-3) Acetaminophen (Tylenol 325mg Tab) 325 mg PO Q4 PRN PRN Reason: Fever >100.4 F Apixaban (Eliquis) 5 mg PO BID [facility] PRN Reason: Protocol Last Admin: 03/02/17 17:09 Dose: 5 mg Aspirin (Ecotrin) 81 mg PO DAILY [facility] Last Admin: 03/02/17 08:56 Dose: 81 mg Atorvastatin Calcium (Lipitor) 40 mg PO HS [facility] Last Admin: 03/02/17 21:57 Dose: 40 mg Calcitriol (Rocaltrol) 0.25 mcg PO DAILY [facility] Last Admin: 03/02/17 08:56 Dose: 0.25 mcg Calcium Carbonate (Oscal) 500 mg PO BID [facility] Last Admin: 03/02/17 17:09 Dose: 500 mg Collagenase (Santyl) 1 applic TOP 0600 [facility] Last Admin: 03/03/17 06:40 Dose: 1 applic Docusate Sodium (Colace) 100 mg PO BID [facility] Last Admin: 03/02/17 17:09 Dose: 100 mg Epoetin Tha (Procrit) 6,000 unit IV MWF@1630 [facility] Ergocalciferol (Drisdol 50,000 Intl Units Cap) 1 cap PO Q7D [facility] Last Admin: 02/26/17 08:51 Dose: 1 cap Fluconazole (Diflucan) 100 mg PO DAILY [facility] PRN Reason: Protocol Last Admin: 03/02/17 08:55 Dose: 100 mg Fluticasone Propionate (Flonase) 1 spr ALLAN BID PRN PRN Reason: Dry nasal passages Gabapentin (Neurontin) 300 mg PO TID [facility] Last Admin: 03/02/17 17:09 Dose: 300 mg Hydromorphone HCl (Dilaudid) 2 mg PO Q4 PRN PRN Reason: Pain scale 4-10 Last Admin: 03/02/17 22:12 Dose: 2 mg Vancomycin HCl 250 mg/ Sodium (Chloride) 100 mls @ 100 mls/hr IVPB MWF@2000 [facility] PRN Reason: Protocol Last Admin: 02/28/17 19:24 Dose: 100 mls/hr Ceftazidime/Avibactam 0.94 gm/ (Sodium Chloride) 100 mls @ 100 mls/hr IVPB MWF@ 2100 [facility] PRN Reason: Protocol Last Admin: 02/28/17 21:08 Dose: 100 mls/hr Gentamicin Sulfate 40 mg/ (Sodium Chloride) 101 mls @ 100 mls/hr IVPB MWF@2000 [facility] PRN Reason: Protocol Last Admin: 02/28/17 19:57 Dose: 100 mls/hr Sodium Chloride (Sodium Chloride 0.9%) 500 mls @ 10 mls/hr IV .Q24H [facility] Last Admin: 03/02/17 18:15 Dose: 10 mls/hr Lactobacillus Acidophilus (Bacid Acidophilus) 1 cap PO BID [facility] Last Admin: 03/02/17 17:13 Dose: 1 cap Lamotrigine (Lamictal) 100 mg PO Q12H [facility] Last Admin: 03/02/17 21:57 Dose: 100 mg Metoprolol Tartrate (Lopressor) 25 mg PO Q12 [facility] Last Admin: 03/02/17 21:58 Dose: 25 mg Ondansetron HCl (Zofran Inj) 4 mg IVP Q4 PRN PRN Reason: Nausea/Vomiting Pantoprazole Sodium (Protonix Ec Tab) 40 mg PO DAILY [facility] Last Admin: 03/02/17 08:55 Dose: 40 mg Polyethylene Glycol (Miralax) 8.5 gm PO DAILY@2200 [facility] Last Admin: 03/02/17 21:57 Dose: 8.5 gm Repaglinide (Prandin) 1 mg PO ACTID [facility] Last Admin: 03/02/17 17:08 Dose: 1 mg Sevelamer HCl (Renagel) 1,600 mg PO TID [facility] Last Admin: 03/02/17 17:08 Dose: 1,600 mg Simethicone (Mylicon Chew Tab) 80 mg PO TID [facility] Last Admin: 03/02/17 17:08 Dose: 80 mg Tobramycin/Dexamethasone (Tobradex Opht Susp) 1 drop OU Q6 [facility] Last Admin: 03/03/17 06:40 Dose: 1 drop Vitamin B Complex/Vit C/Folic Acid (Nephro-Ajay) 1 tab PO DAILY [facility] Last Admin: 03/02/17 08:59 Dose: 1 tab - Labs Labs: 02/26/17 18:00 02/26/17 18:00 - Constitutional Appears: No Acute Distress - ENT Exam ENT Exam: Mucous Membranes Moist - Respiratory Exam Respiratory Exam: NORMAL BREATHING PATTERN. absent: Chest Wall Tenderness, Rales - Cardiovascular Exam Cardiovascular Exam: absent: JVD, Rubs - GI/Abdominal Exam GI & Abdominal Exam: Soft, Normal Bowel Sounds - Extremities Exam Extremities Exam: absent: Calf Tenderness - Back Exam Back Exam: absent: CVA tenderness (L), CVA tenderness (R) - Neurological Exam Neurological Exam: Alert - Psychiatric Exam Psychiatric exam: Normal Affect - Skin Skin Exam: absent: Cyanosis Assessment and Plan (1) CKD (chronic kidney disease) stage V requiring chronic dialysis Assessment & Plan: End stage renal disease on maintenance hemodialysis MWF Patient scheduled to receive dialysis post exercise and therapy The rest of the medical problem as noted previously With the status post amputation below-knee And multiple wound infection and debridement and receiving antibiotics Anemia receiving EPO we will repeat CBC if hemoglobin is not improving we will increase EPO Secondary hyperparathyroidism patient receiving calcitriol Hyperphosphatemia patient receiving binder Status: Acute (2) 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
[2017-03-03] MEDS: Lactobacillus Acidophilus 500 MU Cap PO SCH ×2 (08:15→16:39)
[2017-03-03] MEDS: Simethicone 80 mg Chewtab PO SCH ×3 (08:19→16:46)
[2017-03-03] MEDS: Multivitamin Vitamin B Complex (Nephro-Vite) Tab PO SCH (08:19)
[2017-03-03] MEDS: Pantoprazole 40 mg EC Tab PO SCH (08:20)
[2017-03-03] MEDS: Sodium Chloride 0.9% 500 ML IV SCH (15:14)
[2017-03-03] MEDS: Epoetin Alfa 20000 UNIT/ML Inj IV SCH (16:38)
[2017-03-03 17:22] LABS: BASO # 0.1 K/uL (0.0-0.2); BASO % 0.7 % (0.0-2.0); EOS # 0.6 K/uL (0.0-0.7); EOS % 7.6 % (0.0-4.0); HEMATOCRIT 30.3 % (34.0-47.0); LYMPH % 12.8 % (20.0-40.0); MEAN CELL VOLUME 94.1 fl (81.0-99.0); MEAN CORPUSCULAR HEMOGLOBIN 29.3 pg (27.0-31.0); MEAN CORPUSCULAR HGB CONC 31.1 g/dL (33.0-37.0); MEAN PLATELET VOLUME 9.6 fl (7.2-11.7); MONO # 0.6 K/uL (0.0-0.8); MONO % 7.4 % (0.0-10.0); NEUT # 5.8 K/uL (1.8-7.0); NEUT % 71.5 % (50.0-75.0); RED CELL DISTRIBUTION WIDTH 16.9 % (11.5-14.5); WHITE BLOOD COUNT 8.1 K/uL (4.8-10.8)
[2017-03-03 17:37] LABS: ALB/GLOB RATIO 1.1 (1.0-2.1); BILIRUBIN,TOTAL 0.3 mg/dl (0.2-1.3); CALCIUM 9.2 mg/dL (8.4-10.2); POTASSIUM 5.5 MMOL/L (3.6-5.0)
--- NOTE | 2017-03-03 20:48 | PN ---
DATE: ENDOCRINOLOGY FOLLOWUP NOTE LOCATION: Room #625, acute rehab. SUBJECTIVE: This is a 46-year-old female with recent uncontrolled type 2 diabetes, now undergoing acute rehabilitation therapy for bilateral below-knee amputation procedures as noted. Her glycemic levels are fluctuating but much improved at this time and the latest glucose levels have ranged from 129-152 mg/dL. Her latest chemistries are pending at this time. So, for now, we will continue the low-dose Prandin given as 1 mg p.o. t.i.d. before meals as ordered. We will titrate incremental as indicated to optimize metabolic control. We will obtain serial chemistries and supplement accordingly as needed. We will follow. Irene Ambrose MD
[2017-03-03] MEDS: POLYETHYLENE GLYCOL 3350 17 GM/Dose PACKET PO SCH (21:14)
[2017-03-03] MEDS: Vancomycin 250 MG in Sodium Chloride 0.9% 100 ML IVPB SCH (22:02)
[2017-03-04] MEDS: Dexamethasone/Tobramycin Ophth Susp OU SCH ×4 (06:10→23:35)
[2017-03-04] MEDS: Santyl Collagenase OINTMENT TOP SCH (06:11)
[2017-03-04] MEDS: Lactobacillus Acidophilus 500 MU Cap PO SCH ×2 (08:31→16:40)
[2017-03-04] MEDS: Multivitamin Vitamin B Complex (Nephro-Vite) Tab PO SCH (08:33)
[2017-03-04] MEDS: Simethicone 80 mg Chewtab PO SCH ×3 (08:33→16:42)
[2017-03-04] MEDS: Pantoprazole 40 mg EC Tab PO SCH (08:34)
--- NOTE | 2017-03-04 11:16 | CP.PCM.PN ---
Subjective - Date & Time of Evaluation Date of Evaluation: 03/04/17 Time of Evaluation: 11:08 - Subjective Subjective: Patient had wound vac changed yesterday and patella dressed. Patient took pictures and will send to me. Nurse Jessica Da Silva's note follows: Patient seen, wound vac dressing and right knee dressing changed. Right stump wound base 100% granulation, measures 7 cm wide x 1.5 cm long. No drainage. Vac dressing reapplied and vac set at 125 mm Hg continuous suction. Right knee wound 4 cm long x 3 cm wide. Wound base 80% granulation tissue and 20% slough. Cleansed with NS. Santyl and DSD applied. Continue present treatment. Will change on . Patient continues on iv Avycaz, gentamicin, and vancomycin and po fluconazole. Recall that there was osteomyelitis of both then right tibia/fibula and the patella. She will require antibiotic therapy, being managed by Dr. Lemon, for many more weeks. Patient is doing very well in acute rehabiitation. She is much more confident when standing on left BK prosthesis, and has greater truncal strength and stability. Transfers are still difficult. Continues on Eliquis and aspirin for coagulopathy. Lamictal increased to 150mg bid per Dr. Maguire (neurologist) instructions. No seizures noted. Anemia is a concern. No obvious source of bleeding. Will dicuss epogen with Dr. Guadarrama. Glucoses have been in a good range on current regiment, managed by Dr. Ambrose. Left eye is less inflammed (S/P LASER tx) and will continue Tobradex ophthalmic gtt q6h. Objective - Vital Signs/Intake and Output Vital Signs (last 24 hours): Temp Pulse Resp BP Pulse Ox 97.5 F L 98 H 22 130/93 H 98 03/04/17 09:18 03/04/17 09:18 03/04/17 09:18 03/04/17 09:18 03/04/17 09:18 Intake and Output: 03/04/17 03/04/17 06:59 18:59 Intake Total 240 Balance 240 - Medications Medications: Current Medications Acetaminophen (Tylenol 325mg Tab) 650 mg PO Q4 PRN PRN Reason: Pain, Mild (1-3) Acetaminophen (Tylenol 325mg Tab) 325 mg PO Q4 PRN PRN Reason: Fever >100.4 F Apixaban (Eliquis) 5 mg PO BID ON [facility] PRN Reason: Protocol Last Admin: 03/04/17 08:32 Dose: 5 mg Aspirin (Ecotrin) 81 mg PO DAILY [facility] Last Admin: 03/04/17 08:32 Dose: 81 mg Atorvastatin Calcium (Lipitor) 40 mg PO HS [facility] Last Admin: 03/03/17 21:11 Dose: 40 mg Calcitriol (Rocaltrol) 0.25 mcg PO DAILY [facility] Last Admin: 03/04/17 08:33 Dose: 0.25 mcg Calcium Carbonate (Oscal) 500 mg PO BID [facility] Last Admin: 03/04/17 08:34 Dose: 500 mg Collagenase (Santyl) 1 applic TOP 0600 [facility] Last Admin: 03/04/17 06:11 Dose: 1 applic Docusate Sodium (Colace) 100 mg PO BID [facility] Last Admin: 03/04/17 08:32 Dose: 100 mg Epoetin Tha (Procrit) 6,000 unit IV MWF@1630 [facility] Last Admin: 03/03/17 16:38 Dose: 6,000 unit Ergocalciferol (Drisdol 50,000 Intl Units Cap) 1 cap PO Q7D [facility] Last Admin: 02/26/17 08:51 Dose: 1 cap Fluconazole (Diflucan) 100 mg PO DAILY [facility] PRN Reason: Protocol Last Admin: 03/04/17 08:32 Dose: 100 mg Fluticasone Propionate (Flonase) 1 spr ALLAN BID PRN PRN Reason: Dry nasal passages Gabapentin (Neurontin) 300 mg PO TID [facility] Last Admin: 03/04/17 08:34 Dose: 300 mg Hydromorphone HCl (Dilaudid) 2 mg PO Q4 PRN PRN Reason: Pain scale 4-10 Last Admin: 03/04/17 08:30 Dose: 2 mg Vancomycin HCl 250 mg/ Sodium (Chloride) 100 mls @ 100 mls/hr IVPB MWF@2000 [facility] PRN Reason: Protocol Last Admin: 03/03/17 22:02 Dose: 100 mls/hr Ceftazidime/Avibactam 0.94 gm/ (Sodium Chloride) 100 mls @ 100 mls/hr IVPB MWF@ 2100 [facility] PRN Reason: Protocol Last Admin: 03/03/17 23:19 Dose: 100 mls/hr Gentamicin Sulfate 40 mg/ (Sodium Chloride) 101 mls @ 100 mls/hr IVPB MWF@2000 [facility] PRN Reason: Protocol Last Admin: 03/03/17 21:03 Dose: 100 mls/hr Sodium Chloride (Sodium Chloride 0.9%) 500 mls @ 10 mls/hr IV .Q24H [facility] Last Admin: 03/03/17 15:14 Dose: 10 mls/hr Lactobacillus Acidophilus (Bacid Acidophilus) 1 cap PO BID [facility] Last Admin: 03/04/17 08:31 Dose: 1 cap Lamotrigine (Lamictal) 150 mg PO BID [facility] Metoprolol Tartrate (Lopressor) 25 mg PO Q12 [facility] Last Admin: 03/04/17 08:33 Dose: 25 mg Ondansetron HCl (Zofran Inj) 4 mg IVP Q4 PRN PRN Reason: Nausea/Vomiting Pantoprazole Sodium (Protonix Ec Tab) 40 mg PO DAILY [facility] Last Admin: 03/04/17 08:34 Dose: 40 mg Polyethylene Glycol (Miralax) 8.5 gm PO DAILY@2200 [facility] Last Admin: 03/03/17 21:14 Dose: Not Given Repaglinide (Prandin) 1 mg PO ACTID [facility] Last Admin: 03/04/17 07:12 Dose: 1 mg Sevelamer HCl (Renagel) 1,600 mg PO TID [facility] Last Admin: 03/04/17 08:33 Dose: 1,600 mg Simethicone (Mylicon Chew Tab) 80 mg PO TID [facility] Last Admin: 03/04/17 08:33 Dose: 80 mg Tobramycin/Dexamethasone (Tobradex Opht Susp) 1 drop OU Q6 [facility] Last Admin: 03/04/17 06:10 Dose: 1 drop Vitamin B Complex/Vit C/Folic Acid (Nephro-Ajya) 1 tab PO DAILY [facility] Last Admin: 03/04/17 08:33 Dose: 1 tab - Labs Labs: 03/03/17 17:15 03/03/17 17:15 - Constitutional Appears: No Acute Distress - Head Exam Head Exam: NORMAL INSPECTION - Eye Exam Eye Exam: Normal appearance - ENT Exam ENT Exam: Mucous Membranes Moist - Neck Exam Neck Exam: Normal Inspection Additional comments: Right subcleavian Permacath intact. - Respiratory Exam Respiratory Exam: Clear to Ausculation Bilateral, NORMAL BREATHING PATTERN - Cardiovascular Exam Cardiovascular Exam: REGULAR RHYTHM, +S1, +S2 - GI/Abdominal Exam GI & Abdominal Exam: Soft - Extremities Exam Additional comments: Hands warm. Wearing L BK prosthesis Wound vac and dressings intact RLE. - Back Exam Back Exam: NORMAL INSPECTION - Neurological Exam Neurological Exam: Abnormal Gait, Alert, CN II-XII Intact, Oriented x3 - Psychiatric Exam Psychiatric exam: Normal Mood - Skin Skin Exam: Dry, Normal Color, Warm Assessment and Plan (1) Elevated liver enzymes Assessment & Plan: stable Status: Acute (2) Status post below knee amputation of right lower extremity Assessment & Plan: Making progress in rehab. Status: Acute (3) Infection of amputation stump of right lower extremity Assessment & Plan: Wounds healing nicely, but must continue intensive antibiotic therpy. Status: Acute (4) DM type 2 (diabetes mellitus, type 2) Assessment & Plan: controlled. Status: Chronic (5) ESRD (end stage renal disease) on dialysis Assessment & Plan: stable Status: Chronic (6) Diabetic retinopathy Assessment & Plan: S/P Bilateral LASER therapy in Jan-Feb. Healing. Status: Acute (7) Seizure disorder Assessment & Plan: controlled. Medication just raised to Lamictal 150mg bid, and this is to continue at this does for 18 months. Status: Acute (8) Gallstones without obstruction of gallbladder Status: Acute (9) Coagulopathy Assessment & Plan: No signs of clotting. Continue Eliquis and aspirin. 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 Status: Acute
--- NOTE | 2017-03-04 13:15 | PSY.TMCNF ---
Nursing - Vital Signs Vital Signs (Last 8 hours): Vital Signs 03/04/17 03/04/17 03/04/17 08:33 09:00 09:18 Temperature 97.5 F L 97.5 F L Pulse Rate 98 H 98 H 98 H Respiratory 22 22 Rate Blood Pressure 130/93 H 130/93 H 130/93 H O2 Sat by Pulse 98 Oximetry Pain: 7 - Precautions: Precautions: Fall Prevention, Pressure Ulcer, Seizure Isolation: Contact - Medications/Other Issues Comment: Wound care, Dialysis, Infection control. - Consults Comment: Dr. Daniels, Dr. Ambrose, Dr. Lemon, Dr. Guadarrama - Skin Incision Site: rt stump Drainage: Sanguineous Dressing Status: Clean, Dry, Intact Incision Line Treatment: wound vac cahnged daily by wound rn - Toileting Toileting: Dependent - Bladder Management Voiding Method: Bedpan - Bowel Management Bowel Pattern: Normal Bowel Management: Dependent - Transfers Transfers: Moderate Assistance - ADL's ADL's: Moderate Assistance - Pain Management Comments: on dilaudid for pain - Patient/Family Teaching Comments: safety ,fall fluid restriction,skin care wound care - Goals/Time Frame Comments: As per team plan of care. - Provider Provider: Magan Hodgson RN Physical Therapy - Bed Mobility Bed Mobility: Contact Guard Comment: rolling L and R - Transfers Wheelchair to Mat: Contact Guard, Minimal Assistance Sit to Stand: Dependent - Ambulation Assistive Devices: N/A - Stair Negotiation Stairs: Level of Assistance: Not Tested - Standing Balance Static Stand: Not tested Dynamic Stand: Unable to assess/perform - Pain Management Techniques: Medication, Position Change - Insight/Carryover Insight/Carryover: Good - Patient/Family Education Comment: Pt seen for OT evaluation; please refer for functional status, tx and goals - Assessment/Plan Assessment: Pt is agreeable to participate in 1:1 recreation therapy sessions throughout her free time to improve arousal level and mood state. Pt is also provided with word finds that she completes during her free time. Pt's mood continues to be stable-positive. Will provide pt leisure education on amputee support resources within the community. - Goals Timeframe: 4 weeks Goals: Ub dressing. LB dressing. Bed to wheelchair, commode, tub bench transfers. BUE strength. Wheelchair mobility - Provider Therapist: Flavia License Number: [id number] Occupational Therapy - Arousal/Attention/Orientation Patient Orientation: Person, Place, Time, Appropriate to Age, Appropriate to Situation - ADL/IADL Self Feeding: Set-up Help Grooming: Supervision, Verbal Cues, Set-up Help Dressing-Upper Extremity: Verbal Cues, Set-up Help, Contact Guard, Minimal Assistance Dressing-Lower Extremity: Verbal Cues, Set-up Help, Maximum Assistance Comment: Patient performed UB dressing better when seated in wheelchair compared to in bed. - Sitting Balance Static Sitting: Supervision Dynamic Sitting: Contact Guard Assist - Transfers Wheelchair to Bed Transfers: Moderate Assistance Toilet Transfers: Dependent Tub Transfers: Dependent - Wheelchair Management Level of Assistance: Contact Guard Distance (ft.): 75 - Upper Extremity Status Right Upper Extremity Comment: except tightness in R wrist, and MPs due to amputations Left Upper Extremity Comment: exceptin tightness and mimitations in R wrist, MPs, 5th digit IPs as well - Pain Alleviating Techniques: Medication, Position Change - Insight/Carryover Insight/Carryover: Good - Patient/Family Education Comment: Pt seen for OT evaluation; please refer for functional status, tx and goals - Assessment/Plan Assessment: Pt is agreeable to participate in 1:1 recreation therapy sessions throughout her free time to improve arousal level and mood state. Pt is also provided with word finds that she completes during her free time. Pt's mood continues to be stable-positive. Will provide pt leisure education on amputee support resources within the community. - Goals Timeframe: 4 weeks Goals: Ub dressing. LB dressing. Bed to wheelchair, commode, tub bench transfers. BUE strength. Wheelchair mobility - Provider Therapist: Nereida BE/Patel License Number: [id number] Speech Therapy - Plan Assessment: Pt is agreeable to participate in 1:1 recreation therapy sessions throughout her free time to improve arousal level and mood state. Pt is also provided with word finds that she completes during her free time. Pt's mood continues to be stable-positive. Will provide pt leisure education on amputee support resources within the community. Recreational Therapy - Participation Participation: Participates in Individual and/or Group Sessions, Monitors His/ Her Own Leisure Time - Attendance Attendance: 3-5 times per week - Activities Leisure Activities: Television - Socialization Level of Socialization: Initiates/interacts freely with care givers and peer, Initiates/interacts with caregivers but not with peer - Diversional Time Diversional Time: television, word searches - Assessment Assessment/Plan: Pt is agreeable to participate in 1:1 recreation therapy sessions throughout her free time to improve arousal level and mood state. Pt is also provided with word finds that she completes during her free time. Pt's mood continues to be stable-positive. Will provide pt leisure education on amputee support resources within the community. Problems Currently Limiting Participation: decrease strength, impaired mobility , multiple digit amputations, decrease leisure awareness level Goals and Time Frame: Pt will be encouraged to participate in 1:1 and group recreation therapy sessions 3-5x week to improve activity tolerance level, leisure awareness level, and to improve arousal level. - Provider Therapist: Keren Hair, CANAL TENDER #[id number] Nutrition - Current Diet Current Diet/ Supplement/ Feedings: Renal Dialysis 2 gram Na 2 gram K+80 gram protein Nepro 8 ounces 1 per day - Appetite Percent Meal Consumed: 75-100% - Comments Comments: safety ,fall fluid restriction,skin care wound care - Assessment/Goals/Time Frame Assessment/Goals/Time Frame: Wound care, Dialysis, Infection control. - Provider Provider: Muriel Dale RD Case Management - Psychosocial Assessment Support Systems: Lucia Leo (sibling)- [phone]. Sandra Leo (mother)- [phone] Psychological Interventions/Needs: Patient is alert and oriented x3, cooperative and motivated for therapy Discharge Concerns: Patient min-modA for all functional moblity. Currently on wound vac for R stump Patient/Family Meeting: CM met with patient and rehab team Intervention/Goal/Outcome:: 1. PLAN: ALFONZO- list to be provided to patient. 2. Patient to be reteamed for most appropriate discharge date and plan. - Discharge Plan Discharge Plan: Subacute care - Provider Provider: MARYBETH Lenz, H[employer]ER License Number: [id number] Rehabilitation Plan - Treatment Plan Treatment Plan: Physical Therapy, Occupational Therapy, Dietary, Pain Management , Wound Care, Patient/Family Education - Discharge Plan Discharge to: Subacute
[2017-03-04] MEDS: Sodium Chloride 0.9% 500 ML IV SCH (14:03)
--- NOTE | 2017-03-04 14:03 | CP.PCM.PN ---
Subjective - Date & Time of Evaluation Date of Evaluation: 03/04/17 Time of Evaluation: 14:02 - Subjective Subjective: Patient seen in room doing ok tolerating PT/OT varying function with degree of fatigue continues with HD continue local wound care to right LE, improving Objective - Vital Signs/Intake and Output Vital Signs (last 24 hours): Temp Pulse Resp BP Pulse Ox 97.5 F L 98 H 22 130/93 H 98 03/04/17 09:18 03/04/17 09:18 03/04/17 09:18 03/04/17 09:18 03/04/17 09:18 Intake and Output: 03/04/17 03/04/17 06:59 18:59 Intake Total 240 Balance 240 - Medications Medications: Current Medications Acetaminophen (Tylenol 325mg Tab) 650 mg PO Q4 PRN PRN Reason: Pain, Mild (1-3) Acetaminophen (Tylenol 325mg Tab) 325 mg PO Q4 PRN PRN Reason: Fever >100.4 F Apixaban (Eliquis) 5 mg PO BID [facility] PRN Reason: Protocol Last Admin: 03/04/17 08:32 Dose: 5 mg Aspirin (Ecotrin) 81 mg PO DAILY [facility] Last Admin: 03/04/17 08:32 Dose: 81 mg Atorvastatin Calcium (Lipitor) 40 mg PO HS [facility] Last Admin: 03/03/17 21:11 Dose: 40 mg Calcitriol (Rocaltrol) 0.25 mcg PO DAILY [facility] Last Admin: 03/04/17 08:33 Dose: 0.25 mcg Calcium Carbonate (Oscal) 500 mg PO BID [facility] Last Admin: 03/04/17 08:34 Dose: 500 mg Collagenase (Santyl) 1 applic TOP 0600 [facility] Last Admin: 03/04/17 06:11 Dose: 1 applic Docusate Sodium (Colace) 100 mg PO BID [facility] Last Admin: 03/04/17 08:32 Dose: 100 mg Epoetin Tha (Procrit) 6,000 unit IV MWF@1630 [facility] Last Admin: 03/03/17 16:38 Dose: 6,000 unit Ergocalciferol (Drisdol 50,000 Intl Units Cap) 1 cap PO Q7D [facility] Last Admin: 02/26/17 08:51 Dose: 1 cap Fluconazole (Diflucan) 100 mg PO DAILY [facility] PRN Reason: Protocol Last Admin: 03/04/17 08:32 Dose: 100 mg Fluticasone Propionate (Flonase) 1 spr ALLAN BID PRN PRN Reason: Dry nasal passages Gabapentin (Neurontin) 300 mg PO TID [facility] Last Admin: 03/04/17 12:27 Dose: 300 mg Hydromorphone HCl (Dilaudid) 2 mg PO Q4 PRN PRN Reason: Pain scale 4-10 Last Admin: 03/04/17 12:25 Dose: 2 mg Vancomycin HCl 250 mg/ Sodium (Chloride) 100 mls @ 100 mls/hr IVPB MWF@2000 [facility] PRN Reason: Protocol Last Admin: 03/03/17 22:02 Dose: 100 mls/hr Ceftazidime/Avibactam 0.94 gm/ (Sodium Chloride) 100 mls @ 100 mls/hr IVPB MWF@ 2100 [facility] PRN Reason: Protocol Last Admin: 03/03/17 23:19 Dose: 100 mls/hr Gentamicin Sulfate 40 mg/ (Sodium Chloride) 101 mls @ 100 mls/hr IVPB MWF@2000 [facility] PRN Reason: Protocol Last Admin: 03/03/17 21:03 Dose: 100 mls/hr Sodium Chloride (Sodium Chloride 0.9%) 500 mls @ 10 mls/hr IV .Q24H [facility] Last Admin: 03/03/17 15:14 Dose: 10 mls/hr Lactobacillus Acidophilus (Bacid Acidophilus) 1 cap PO BID [facility] Last Admin: 03/04/17 08:31 Dose: 1 cap Lamotrigine (Lamictal) 50 mg PO Q12 [facility] Lamotrigine (Lamictal) 100 mg PO Q12 [facility] Metoprolol Tartrate (Lopressor) 25 mg PO Q12 [facility] Last Admin: 03/04/17 08:33 Dose: 25 mg Ondansetron HCl (Zofran Inj) 4 mg IVP Q4 PRN PRN Reason: Nausea/Vomiting Pantoprazole Sodium (Protonix Ec Tab) 40 mg PO DAILY [facility] Last Admin: 03/04/17 08:34 Dose: 40 mg Polyethylene Glycol (Miralax) 8.5 gm PO DAILY@2200 [facility] Last Admin: 03/03/17 21:14 Dose: Not Given Repaglinide (Prandin) 1 mg PO ACTID [facility] Last Admin: 03/04/17 12:26 Dose: 1 mg Sevelamer HCl (Renagel) 1,600 mg PO TID [facility] Last Admin: 03/04/17 12:26 Dose: 1,600 mg Simethicone (Mylicon Chew Tab) 80 mg PO TID [facility] Last Admin: 03/04/17 12:26 Dose: 80 mg Tobramycin/Dexamethasone (Tobradex Opht Susp) 1 drop OU Q6 [facility] Last Admin: 03/04/17 12:25 Dose: 1 drop Vitamin B Complex/Vit C/Folic Acid (Nephro-Ajay) 1 tab PO DAILY [facility] Last Admin: 03/04/17 08:33 Dose: 1 tab - Labs Labs: 03/03/17 17:15 03/03/17 17:15
--- NOTE | 2017-03-04 18:47 | PN ---
DATE: ENDO FOLLOWUP NOTE ROOM: 625 This is a 46-year-old female with recent uncontrolled type 2 diabetes, now with markedly improved glycemic profile with ongoing low dose hypoglycemic therapy as given. Her glucose values have ranged from 111-127 mg/dl. Her latest chemistries include a BUN of 85, sodium 143, potassium 5.5, chloride 105, CO2 23, glucose 160 and creatinine 8.0. So, at this time, we will continue the low-dose oral hypoglycemic therapy with Prandin given as 1 mg p.o. t.i.d. before meals as given. We will titrate incremental as indicated to optimize metabolic control. We will follow. Irene Ambrose MD cc:
[2017-03-04] MEDS: POLYETHYLENE GLYCOL 3350 17 GM/Dose PACKET PO SCH (21:31)
[2017-03-05] MEDS: Dexamethasone/Tobramycin Ophth Susp OU SCH ×3 (06:40→17:49)
[2017-03-05] MEDS: Santyl Collagenase OINTMENT TOP SCH (06:41)
--- NOTE | 2017-03-05 07:59 | CP.PCM.PN ---
Subjective - Date & Time of Evaluation Date of Evaluation: 03/05/17 Time of Evaluation: 07:58 - Subjective Subjective: Patient and bed Comfortable Good appetite No nausea or vomiting No chest pain Objective - Vital Signs/Intake and Output Vital Signs (last 24 hours): Temp Pulse Resp BP Pulse Ox 97.1 F L 101 H 20 146/85 97 03/04/17 20:13 03/04/17 22:00 03/04/17 20:13 03/04/17 22:00 03/04/17 20:13 Intake and Output: 03/05/17 03/05/17 06:59 18:59 Intake Total 320 Balance 320 - Medications Medications: Current Medications Acetaminophen (Tylenol 325mg Tab) 650 mg PO Q4 PRN PRN Reason: Pain, Mild (1-3) Acetaminophen (Tylenol 325mg Tab) 325 mg PO Q4 PRN PRN Reason: Fever >100.4 F Apixaban (Eliquis) 5 mg PO BID [facility] PRN Reason: Protocol Last Admin: 03/04/17 16:41 Dose: 5 mg Aspirin (Ecotrin) 81 mg PO DAILY [facility] Last Admin: 03/04/17 08:32 Dose: 81 mg Atorvastatin Calcium (Lipitor) 40 mg PO HS [facility] Last Admin: 03/04/17 21:31 Dose: 40 mg Calcitriol (Rocaltrol) 0.25 mcg PO DAILY [facility] Last Admin: 03/04/17 08:33 Dose: 0.25 mcg Calcium Carbonate (Oscal) 500 mg PO BID [facility] Last Admin: 03/04/17 16:41 Dose: 500 mg Collagenase (Santyl) 1 applic TOP 0600 [facility] Last Admin: 03/05/17 06:41 Dose: 1 applic Docusate Sodium (Colace) 100 mg PO BID [facility] Last Admin: 03/04/17 16:40 Dose: 100 mg Epoetin Tha (Procrit) 6,000 unit IV MWF@1630 [facility] Last Admin: 03/03/17 16:38 Dose: 6,000 unit Ergocalciferol (Drisdol 50,000 Intl Units Cap) 1 cap PO Q7D [facility] Last Admin: 02/26/17 08:51 Dose: 1 cap Fluconazole (Diflucan) 100 mg PO DAILY [facility] PRN Reason: Protocol Last Admin: 03/04/17 08:32 Dose: 100 mg Fluticasone Propionate (Flonase) 1 spr ALLAN BID PRN PRN Reason: Dry nasal passages Last Admin: 03/04/17 21:38 Dose: 1 spr Gabapentin (Neurontin) 300 mg PO TID [facility] Last Admin: 03/04/17 16:40 Dose: 300 mg Hydromorphone HCl (Dilaudid) 2 mg PO Q4 PRN PRN Reason: Pain scale 4-10 Last Admin: 03/04/17 21:28 Dose: 2 mg Vancomycin HCl 250 mg/ Sodium (Chloride) 100 mls @ 100 mls/hr IVPB MWF@2000 [facility] PRN Reason: Protocol Last Admin: 03/03/17 22:02 Dose: 100 mls/hr Ceftazidime/Avibactam 0.94 gm/ (Sodium Chloride) 100 mls @ 100 mls/hr IVPB MWF@ 2100 [facility] PRN Reason: Protocol Last Admin: 03/03/17 23:19 Dose: 100 mls/hr Gentamicin Sulfate 40 mg/ (Sodium Chloride) 101 mls @ 100 mls/hr IVPB MWF@2000 [facility] PRN Reason: Protocol Last Admin: 03/03/17 21:03 Dose: 100 mls/hr Sodium Chloride (Sodium Chloride 0.9%) 500 mls @ 10 mls/hr IV .Q24H [facility] Last Admin: 03/04/17 14:03 Dose: 10 mls/hr Lactobacillus Acidophilus (Bacid Acidophilus) 1 cap PO BID [facility] Last Admin: 03/04/17 16:40 Dose: 1 cap Lamotrigine (Lamictal) 50 mg PO Q12 [facility] Last Admin: 03/04/17 21:31 Dose: 50 mg Lamotrigine (Lamictal) 100 mg PO Q12 [facility] Last Admin: 03/04/17 21:30 Dose: 100 mg Metoprolol Tartrate (Lopressor) 25 mg PO Q12 [facility] Last Admin: 03/04/17 22:00 Dose: 25 mg Ondansetron HCl (Zofran Inj) 4 mg IVP Q4 PRN PRN Reason: Nausea/Vomiting Pantoprazole Sodium (Protonix Ec Tab) 40 mg PO DAILY [facility] Last Admin: 03/04/17 08:34 Dose: 40 mg Polyethylene Glycol (Miralax) 8.5 gm PO DAILY@2200 [facility] Last Admin: 03/04/17 21:31 Dose: 8.5 gm Repaglinide (Prandin) 1 mg PO ACTID [facility] Last Admin: 03/04/17 16:40 Dose: 1 mg Sevelamer HCl (Renagel) 1,600 mg PO TID [facility] Last Admin: 03/04/17 16:41 Dose: 1,600 mg Simethicone (Mylicon Chew Tab) 80 mg PO TID [facility] Last Admin: 03/04/17 16:42 Dose: 80 mg Tobramycin/Dexamethasone (Tobradex Opht Susp) 1 drop OU Q6 [facility] Last Admin: 03/05/17 06:40 Dose: 1 drop Vitamin B Complex/Vit C/Folic Acid (Nephro-Ajay) 1 tab PO DAILY [facility] Last Admin: 03/04/17 08:33 Dose: 1 tab - Labs Labs: 03/03/17 17:15 03/03/17 17:15 - Constitutional Appears: No Acute Distress - ENT Exam ENT Exam: Mucous Membranes Moist - Respiratory Exam Respiratory Exam: NORMAL BREATHING PATTERN. absent: Chest Wall Tenderness - Cardiovascular Exam Cardiovascular Exam: absent: JVD, Rubs - GI/Abdominal Exam GI & Abdominal Exam: Soft, Normal Bowel Sounds - Extremities Exam Extremities Exam: absent: Calf Tenderness - Back Exam Back Exam: absent: CVA tenderness (L), CVA tenderness (R) - Neurological Exam Neurological Exam: Alert - Psychiatric Exam Psychiatric exam: Normal Affect Assessment and Plan (1) CKD (chronic kidney disease) stage V requiring chronic dialysis Assessment & Plan: End stage renal disease patient receiving dialysis Friday Patient admitted that rehabilitation right now receiving physiotherapy Ultrafiltration on dialysis 3500 mL See my dialysis order Anemia patient receiving EPO 6000 unit Friday on dialysis Hyperphosphatemia Secondary hyperparathyroidism To update the blood work for phosphorus and PTH Status post amputation below-knee on the right Patient receiving antibiotics as per ID Status: Acute (2) 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
[2017-03-05] MEDS: Pantoprazole 40 mg EC Tab PO SCH (08:21)
[2017-03-05] MEDS: Multivitamin Vitamin B Complex (Nephro-Vite) Tab PO SCH (08:21)
[2017-03-05] MEDS: Lactobacillus Acidophilus 500 MU Cap PO SCH ×2 (08:21→16:37)
[2017-03-05] MEDS: Simethicone 80 mg Chewtab PO SCH ×3 (08:21→16:39)
[2017-03-05] MEDS: Ergocalciferol 50,000 Intl Units Cap PO SCH (08:22)
[2017-03-05] MEDS: Sodium Chloride 0.9% 500 ML IV SCH (15:10)
[2017-03-05] MEDS: Sodium Chloride 0.9% 250 ML IV SCH (15:30)
--- NOTE | 2017-03-05 17:00 | PN ---
ENDOCRINOLOGY FOLLOWUP NOTE DATE: LOCATION: Room 625, Acute Rehab. SUBJECTIVE: This is a 46-year-old female with recent uncontrolled type 2 insulin-requiring diabetes, now taken off all insulins therapy and doing fairly well and oral hypoglycemic drug therapy has given. Her oral intake remains quite variable, although much improved at this time as noted. Her latest glucose levels have ranged from 102 to 207 mg/dL. The fasting glucose yesterday was 111 mg/dL. Her latest chemistry showed a BUN of 85, sodium 143, potassium 5.5, chloride 105, CO2 of 23, glucose 160, and creatinine 8.0. So, at this time, we will continue the Prandin given as 1 mg p.o. t.i.d. before meals as ordered. We will titrate incrementally as indicated to optimize metabolic control. We will follow and advise accordingly. Irene Ambrose MD
--- NOTE | 2017-03-05 17:07 | CP.PCM.PN ---
Subjective - Date & Time of Evaluation Date of Evaluation: 03/05/17 Time of Evaluation: 17:06 - Subjective Subjective: Patient seen in room doing well very appreciative of all the efforts in therapy pain is well controlled continue current care HD shortly Objective - Vital Signs/Intake and Output Vital Signs (last 24 hours): Temp Pulse Resp BP Pulse Ox 98.4 F 97 H 19 100/74 96 03/05/17 13:00 03/05/17 13:00 03/05/17 13:00 03/05/17 13:00 03/05/17 13:00 Intake and Output: 03/05/17 03/05/17 06:59 18:59 Intake Total 320 Balance 320 - Medications Medications: Current Medications Acetaminophen (Tylenol 325mg Tab) 650 mg PO Q4 PRN PRN Reason: Pain, Mild (1-3) Acetaminophen (Tylenol 325mg Tab) 325 mg PO Q4 PRN PRN Reason: Fever >100.4 F Apixaban (Eliquis) 5 mg PO BID [facility] PRN Reason: Protocol Last Admin: 03/05/17 16:39 Dose: 5 mg Aspirin (Ecotrin) 81 mg PO DAILY [facility] Last Admin: 03/05/17 08:22 Dose: 81 mg Atorvastatin Calcium (Lipitor) 40 mg PO HS [facility] Last Admin: 03/04/17 21:31 Dose: 40 mg Calcitriol (Rocaltrol) 0.25 mcg PO DAILY [facility] Last Admin: 03/05/17 08:22 Dose: 0.25 mcg Calcium Carbonate (Oscal) 500 mg PO BID [facility] Last Admin: 03/05/17 16:39 Dose: 500 mg Collagenase (Santyl) 1 applic TOP 0600 [facility] Last Admin: 03/05/17 06:41 Dose: 1 applic Docusate Sodium (Colace) 100 mg PO BID [facility] Last Admin: 03/05/17 16:38 Dose: 100 mg Epoetin Tha (Procrit) 6,000 unit IV MWF@1630 [facility] Last Admin: 03/03/17 16:38 Dose: 6,000 unit Ergocalciferol (Drisdol 50,000 Intl Units Cap) 1 cap PO Q7D [facility] Last Admin: 03/05/17 08:22 Dose: 1 cap Fluconazole (Diflucan) 100 mg PO DAILY [facility] PRN Reason: Protocol Last Admin: 03/05/17 08:21 Dose: 100 mg Fluticasone Propionate (Flonase) 1 spr ALLAN BID PRN PRN Reason: Dry nasal passages Last Admin: 03/04/17 21:38 Dose: 1 spr Gabapentin (Neurontin) 300 mg PO TID [facility] Last Admin: 03/05/17 16:39 Dose: 300 mg Hydromorphone HCl (Dilaudid) 2 mg PO Q4 PRN PRN Reason: Pain scale 4-10 Last Admin: 03/05/17 09:18 Dose: 2 mg Vancomycin HCl 250 mg/ Sodium (Chloride) 100 mls @ 100 mls/hr IVPB MWF@2000 [facility] PRN Reason: Protocol Last Admin: 03/03/17 22:02 Dose: 100 mls/hr Ceftazidime/Avibactam 0.94 gm/ (Sodium Chloride) 100 mls @ 100 mls/hr IVPB MWF@ 2100 [facility] PRN Reason: Protocol Last Admin: 03/03/17 23:19 Dose: 100 mls/hr Gentamicin Sulfate 40 mg/ (Sodium Chloride) 101 mls @ 100 mls/hr IVPB MWF@2000 [facility] PRN Reason: Protocol Last Admin: 03/03/17 21:03 Dose: 100 mls/hr Sodium Chloride (Sodium Chloride 0.9%) 250 mls @ 10 mls/hr IV .Q24H [facility] Last Admin: 03/05/17 15:30 Dose: 10 mls/hr Lactobacillus Acidophilus (Bacid Acidophilus) 1 cap PO BID [facility] Last Admin: 03/05/17 16:37 Dose: 1 cap Lamotrigine (Lamictal) 50 mg PO Q12 [facility] Last Admin: 03/05/17 08:20 Dose: 50 mg Lamotrigine (Lamictal) 100 mg PO Q12 [facility] Last Admin: 03/05/17 08:21 Dose: 100 mg Metoprolol Tartrate (Lopressor) 25 mg PO Q12 [facility] Last Admin: 03/05/17 09:19 Dose: Not Given Ondansetron HCl (Zofran Inj) 4 mg IVP Q4 PRN PRN Reason: Nausea/Vomiting Pantoprazole Sodium (Protonix Ec Tab) 40 mg PO DAILY [facility] Last Admin: 03/05/17 08:21 Dose: 40 mg Polyethylene Glycol (Miralax) 8.5 gm PO DAILY@2200 [facility] Last Admin: 03/04/17 21:31 Dose: 8.5 gm Repaglinide (Prandin) 1 mg PO ACTID [facility] Last Admin: 03/05/17 16:40 Dose: 1 mg Sevelamer HCl (Renagel) 1,600 mg PO TID [facility] Last Admin: 03/05/17 17:05 Dose: 1,600 mg Simethicone (Mylicon Chew Tab) 80 mg PO TID [facility] Last Admin: 03/05/17 16:39 Dose: 80 mg Tobramycin/Dexamethasone (Tobradex Opht Susp) 1 drop OU Q6 [facility] Last Admin: 03/05/17 12:28 Dose: 1 drop Vitamin B Complex/Vit C/Folic Acid (Nephro-Ajay) 1 tab PO DAILY [facility] Last Admin: 03/05/17 08:21 Dose: 1 tab - Labs Labs: 03/03/17 17:15 03/03/17 17:15
[2017-03-05] MEDS: Epoetin Alfa 20000 UNIT/ML Inj IV SCH ×2 (21:09→21:37)
[2017-03-05] MEDS: Vancomycin 250 MG in Sodium Chloride 0.9% 100 ML IVPB SCH (21:52)
[2017-03-06] MEDS: Dexamethasone/Tobramycin Ophth Susp OU SCH ×5 (00:05→23:41)
[2017-03-06] MEDS: POLYETHYLENE GLYCOL 3350 17 GM/Dose PACKET PO SCH ×2 (00:07→21:14)
[2017-03-06] MEDS: Santyl Collagenase OINTMENT TOP SCH (06:24)
[2017-03-06] MEDS: Lactobacillus Acidophilus 500 MU Cap PO SCH ×2 (08:25→17:10)
[2017-03-06] MEDS: Multivitamin Vitamin B Complex (Nephro-Vite) Tab PO SCH (08:26)
[2017-03-06] MEDS: Pantoprazole 40 mg EC Tab PO SCH (08:26)
[2017-03-06] MEDS: Simethicone 80 mg Chewtab PO SCH ×3 (08:27→17:11)
--- NOTE | 2017-03-06 14:26 | CP.PCM.PN ---
Subjective - Date & Time of Evaluation Date of Evaluation: 03/06/17 Time of Evaluation: 14:22 - Subjective Subjective: Patient is working hard at rehabilitation, but she is a little tired today. No cough, dyspnea, or fevera. She continues on IV Avycaz, gentamcin, and vancomycin MWF post dialysis and on po fluconazole daily. Right BK wound vac and patellar dressing changed yesterday. Wounds are slowly healing. DM controlled. Glucoses running 105-150. No seizures - no on standing dose of Lamitrogine 150mg bid. Continues on Eliquis and ASA for coagulopathy. Objective - Vital Signs/Intake and Output Vital Signs (last 24 hours): Temp Pulse Resp BP Pulse Ox 97.6 F 98 H 22 148/48 L 98 03/06/17 09:25 03/06/17 09:25 03/06/17 09:25 03/06/17 09:25 03/06/17 09:25 Intake and Output: 03/06/17 03/06/17 06:59 18:59 Intake Total 1150 Balance 1150 - Medications Medications: Current Medications Acetaminophen (Tylenol 325mg Tab) 650 mg PO Q4 PRN PRN Reason: Pain, Mild (1-3) Acetaminophen (Tylenol 325mg Tab) 325 mg PO Q4 PRN PRN Reason: Fever >100.4 F Apixaban (Eliquis) 5 mg PO BID [facility] PRN Reason: Protocol Last Admin: 03/06/17 08:25 Dose: 5 mg Aspirin (Ecotrin) 81 mg PO DAILY [facility] Last Admin: 03/06/17 08:25 Dose: 81 mg Atorvastatin Calcium (Lipitor) 40 mg PO HS [facility] Last Admin: 03/05/17 23:04 Dose: 40 mg Calcitriol (Rocaltrol) 0.25 mcg PO DAILY [facility] Last Admin: 03/06/17 08:27 Dose: 0.25 mcg Calcium Carbonate (Oscal) 500 mg PO BID [facility] Last Admin: 03/06/17 08:26 Dose: 500 mg Collagenase (Santyl) 1 applic TOP 0600 [facility] Last Admin: 03/06/17 06:24 Dose: 1 applic Docusate Sodium (Colace) 100 mg PO BID [facility] Last Admin: 03/06/17 08:25 Dose: 100 mg Epoetin Tha (Procrit) 6,000 unit IV MWF@1630 [facility] Last Admin: 10/25/17 21:37 Dose: 6,000 unit Ergocalciferol (Drisdol 50,000 Intl Units Cap) 1 cap PO Q7D [facility] Last Admin: 03/05/17 08:22 Dose: 1 cap Fluconazole (Diflucan) 100 mg PO DAILY [facility] PRN Reason: Protocol Last Admin: 03/06/17 08:25 Dose: 100 mg Fluticasone Propionate (Flonase) 1 spr ALLAN BID PRN PRN Reason: Dry nasal passages Last Admin: 03/04/17 21:38 Dose: 1 spr Gabapentin (Neurontin) 300 mg PO TID [facility] Last Admin: 03/06/17 12:30 Dose: 300 mg Hydromorphone HCl (Dilaudid) 2 mg PO Q4 PRN PRN Reason: Pain scale 4-10 Last Admin: 03/06/17 11:39 Dose: 2 mg Vancomycin HCl 250 mg/ Sodium (Chloride) 100 mls @ 100 mls/hr IVPB MWF@2000 [facility] PRN Reason: Protocol Last Admin: 03/05/17 21:52 Dose: 100 mls/hr Ceftazidime/Avibactam 0.94 gm/ (Sodium Chloride) 100 mls @ 100 mls/hr IVPB MWF@ 2100 [facility] PRN Reason: Protocol Last Admin: 03/06/17 00:04 Dose: 100 mls/hr Gentamicin Sulfate 40 mg/ (Sodium Chloride) 101 mls @ 100 mls/hr IVPB MWF@2000 [facility] PRN Reason: Protocol Last Admin: 03/05/17 23:02 Dose: 100 mls/hr Sodium Chloride (Sodium Chloride 0.9%) 250 mls @ 10 mls/hr IV .Q24H [facility] Last Admin: 03/05/17 15:30 Dose: 10 mls/hr Lactobacillus Acidophilus (Bacid Acidophilus) 1 cap PO BID [facility] Last Admin: 03/06/17 08:25 Dose: 1 cap Lamotrigine (Lamictal) 50 mg PO Q12 [facility] Last Admin: 03/06/17 08:26 Dose: 50 mg Lamotrigine (Lamictal) 100 mg PO Q12 [facility] Last Admin: 03/06/17 08:26 Dose: 100 mg Metoprolol Tartrate (Lopressor) 25 mg PO Q12 [facility] Last Admin: 03/06/17 08:33 Dose: 25 mg Ondansetron HCl (Zofran Inj) 4 mg IVP Q4 PRN PRN Reason: Nausea/Vomiting Pantoprazole Sodium (Protonix Ec Tab) 40 mg PO DAILY [facility] Last Admin: 03/06/17 08:26 Dose: 40 mg Polyethylene Glycol (Miralax) 8.5 gm PO DAILY@2200 [facility] Last Admin: 03/06/17 00:07 Dose: Not Given Repaglinide (Prandin) 1 mg PO ACTID [facility] Last Admin: 03/06/17 11:40 Dose: 1 mg Sevelamer HCl (Renagel) 1,600 mg PO TID [facility] Last Admin: 03/06/17 12:30 Dose: 1,600 mg Simethicone (Mylicon Chew Tab) 80 mg PO TID [facility] Last Admin: 03/06/17 12:30 Dose: 80 mg Tobramycin/Dexamethasone (Tobradex Opht Susp) 1 drop OU Q6 [facility] Last Admin: 03/06/17 11:41 Dose: 1 drop Vitamin B Complex/Vit C/Folic Acid (Nephro-Ajay) 1 tab PO DAILY [facility] Last Admin: 03/06/17 08:26 Dose: 1 tab - Labs Labs: 03/03/17 17:15 03/03/17 17:15 - Constitutional Appears: No Acute Distress - Head Exam Head Exam: NORMAL INSPECTION - Eye Exam Eye Exam: Normal appearance. absent: Conjunctival injection - ENT Exam ENT Exam: Mucous Membranes Moist - Neck Exam Neck Exam: Normal Inspection Additional comments: Right subclavian Permacath intact. - Respiratory Exam Respiratory Exam: Clear to Ausculation Bilateral, NORMAL BREATHING PATTERN - Cardiovascular Exam Cardiovascular Exam: REGULAR RHYTHM, +S1, +S2 - GI/Abdominal Exam GI & Abdominal Exam: Soft - Extremities Exam Additional comments: Dressings intact RLE. - Back Exam Back Exam: NORMAL INSPECTION - Neurological Exam Neurological Exam: Alert, Oriented x3 - Psychiatric Exam Psychiatric exam: Normal Affect, Normal Mood - Skin Skin Exam: Dry, Normal Color Assessment and Plan (1) Elevated liver enzymes Status: Acute (2) Status post below knee amputation of right lower extremity Status: Acute (3) Infection of amputation stump of right lower extremity Status: Acute (4) DM type 2 (diabetes mellitus, type 2) Status: Chronic (5) ESRD (end stage renal disease) on dialysis Status: Chronic (6) Diabetic retinopathy Status: Acute (7) Seizure disorder Status: Acute (8) Gallstones without obstruction of gallbladder Status: Acute (9) Coagulopathy Status: Chronic (10) 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 TO CONTINUE PRESENT [facility].
[2017-03-06] MEDS: Sodium Chloride 0.9% 250 ML IV SCH (15:23)
--- NOTE | 2017-03-06 16:23 | PN ---
DATE: ENDOCRINOLOGY FOLLOWUP NOTE LOCATIONS: Room 625. SUBJECTIVE: This is a 46-year-old female with recent uncontrolled type 2 diabetes with improved glycemic profile on just low-dose oral hypoglycemic drug therapy and is now being followed closely for metabolic management. She is undergoing acute rehabilitation following a right below knee amputation and a previous left below knee amputation as noted. Her glucose levels today are ranging from 105 to 152 mg/dL. ASSESSMENT AND PLAN: So, at this time, we will continue the low-dose Prandin given as 1 mg p.o. t.i.d. before meals as ordered. We will titrate incremental as indicated to optimize metabolic control. We will follow with you. Irene Ambrose MD
--- NOTE | 2017-03-06 17:15 | CP.PCM.PN ---
Subjective - Date & Time of Evaluation Date of Evaluation: 03/06/17 Time of Evaluation: 17:14 - Subjective Subjective: Pt seen in room pain is controlled she is tired, didn't sleep well last night continues to be motivated in therapies continue current care Objective - Vital Signs/Intake and Output Vital Signs (last 24 hours): Temp Pulse Resp BP Pulse Ox 97.6 F 98 H 22 148/48 L 98 03/06/17 09:25 03/06/17 09:25 03/06/17 09:25 03/06/17 09:25 03/06/17 09:25 Intake and Output: 03/06/17 03/06/17 06:59 18:59 Intake Total 1150 Balance 1150 - Medications Medications: Current Medications Acetaminophen (Tylenol 325mg Tab) 650 mg PO Q4 PRN PRN Reason: Pain, Mild (1-3) Acetaminophen (Tylenol 325mg Tab) 325 mg PO Q4 PRN PRN Reason: Fever >100.4 F Apixaban (Eliquis) 5 mg PO BID [facility] PRN Reason: Protocol Last Admin: 03/06/17 17:11 Dose: 5 mg Aspirin (Ecotrin) 81 mg PO DAILY [facility] Last Admin: 03/06/17 08:25 Dose: 81 mg Atorvastatin Calcium (Lipitor) 40 mg PO HS [facility] Last Admin: 03/05/17 23:04 Dose: 40 mg Calcitriol (Rocaltrol) 0.25 mcg PO DAILY [facility] Last Admin: 03/06/17 08:27 Dose: 0.25 mcg Calcium Carbonate (Oscal) 500 mg PO BID [facility] Last Admin: 03/06/17 17:11 Dose: 500 mg Collagenase (Santyl) 1 applic TOP 0600 [facility] Last Admin: 03/06/17 06:24 Dose: 1 applic Docusate Sodium (Colace) 100 mg PO BID [facility] Last Admin: 03/06/17 17:11 Dose: 100 mg Epoetin Tha (Procrit) 6,000 unit IV MWF@1630 [facility] Last Admin: 03/05/17 21:37 Dose: 6,000 unit Ergocalciferol (Drisdol 50,000 Intl Units Cap) 1 cap PO Q7D [facility] Last Admin: 03/05/17 08:22 Dose: 1 cap Fluconazole (Diflucan) 100 mg PO DAILY [facility] PRN Reason: Protocol Last Admin: 03/06/17 08:25 Dose: 100 mg Fluticasone Propionate (Flonase) 1 spr ALLAN BID PRN PRN Reason: Dry nasal passages Last Admin: 03/04/17 21:38 Dose: 1 spr Gabapentin (Neurontin) 300 mg PO TID [facility] Last Admin: 03/06/17 17:11 Dose: 300 mg Hydromorphone HCl (Dilaudid) 2 mg PO Q4 PRN PRN Reason: Pain scale 4-10 Last Admin: 03/06/17 15:46 Dose: 2 mg Vancomycin HCl 250 mg/ Sodium (Chloride) 100 mls @ 100 mls/hr IVPB MWF@2000 [facility] PRN Reason: Protocol Last Admin: 03/05/17 21:52 Dose: 100 mls/hr Ceftazidime/Avibactam 0.94 gm/ (Sodium Chloride) 100 mls @ 100 mls/hr IVPB MWF@ 2100 [facility] PRN Reason: Protocol Last Admin: 03/06/17 00:04 Dose: 100 mls/hr Gentamicin Sulfate 40 mg/ (Sodium Chloride) 101 mls @ 100 mls/hr IVPB MWF@2000 [facility] PRN Reason: Protocol Last Admin: 03/05/17 23:02 Dose: 100 mls/hr Sodium Chloride (Sodium Chloride 0.9%) 250 mls @ 10 mls/hr IV .Q24H [facility] Last Admin: 03/06/17 15:23 Dose: 10 mls/hr Lactobacillus Acidophilus (Bacid Acidophilus) 1 cap PO BID [facility] Last Admin: 03/06/17 17:10 Dose: 1 cap Lamotrigine (Lamictal) 50 mg PO Q12 [facility] Last Admin: 03/06/17 08:26 Dose: 50 mg Lamotrigine (Lamictal) 100 mg PO Q12 [facility] Last Admin: 03/06/17 08:26 Dose: 100 mg Metoprolol Tartrate (Lopressor) 25 mg PO Q12 [facility] Last Admin: 03/06/17 08:33 Dose: 25 mg Ondansetron HCl (Zofran Inj) 4 mg IVP Q4 PRN PRN Reason: Nausea/Vomiting Pantoprazole Sodium (Protonix Ec Tab) 40 mg PO DAILY [facility] Last Admin: 03/06/17 08:26 Dose: 40 mg Polyethylene Glycol (Miralax) 8.5 gm PO DAILY@2200 [facility] Last Admin: 03/06/17 00:07 Dose: Not Given Repaglinide (Prandin) 1 mg PO ACTID [facility] Last Admin: 03/06/17 15:48 Dose: 1 mg Sevelamer HCl (Renagel) 1,600 mg PO TID [facility] Last Admin: 03/06/17 17:12 Dose: 1,600 mg Simethicone (Mylicon Chew Tab) 80 mg PO TID [facility] Last Admin: 03/06/17 17:11 Dose: 80 mg Tobramycin/Dexamethasone (Tobradex Opht Susp) 1 drop OU Q6 [facility] Last Admin: 03/06/17 17:12 Dose: 1 drop Vitamin B Complex/Vit C/Folic Acid (Nephro-Ajay) 1 tab PO DAILY [facility] Last Admin: 03/06/17 08:26 Dose: 1 tab - Labs Labs: 03/03/17 17:15 03/03/17 17:15
[2017-03-06] MEDS ORDERED: Sodium Chloride 0.9% 250 ML IV SCH ×2 (19:50→20:45)
[2017-03-07] MEDS: Santyl Collagenase OINTMENT TOP SCH (06:22)
[2017-03-07] MEDS: Dexamethasone/Tobramycin Ophth Susp OU SCH ×4 (06:22→23:48)
[2017-03-07] MEDS: Lactobacillus Acidophilus 500 MU Cap PO SCH ×2 (08:21→17:30)
[2017-03-07] MEDS: Simethicone 80 mg Chewtab PO SCH ×3 (08:22→17:27)
[2017-03-07] MEDS: Multivitamin Vitamin B Complex (Nephro-Vite) Tab PO SCH (08:22)
[2017-03-07] MEDS: Pantoprazole 40 mg EC Tab PO SCH (08:23)
--- NOTE | 2017-03-07 14:10 | CP.PCM.PN ---
Subjective - Date & Time of Evaluation Date of Evaluation: 03/07/17 Time of Evaluation: 14:06 - Subjective Subjective: Patient was seen on hemodialysis now Patient sitting on the chair Mother at the bedside No shortness of breath no difficulty breathing Vital sign noted Objective - Vital Signs/Intake and Output Vital Signs (last 24 hours): Temp Pulse Resp BP Pulse Ox 96.1 F L 97 H 20 143/97 H 95 03/07/17 08:25 03/07/17 08:25 03/07/17 08:25 03/07/17 08:25 03/07/17 08:25 Intake and Output: 03/07/17 03/07/17 06:59 18:59 Intake Total 50 360 Balance 50 360 - Medications Medications: Current Medications Acetaminophen (Tylenol 325mg Tab) 650 mg PO Q4 PRN PRN Reason: Pain, Mild (1-3) Acetaminophen (Tylenol 325mg Tab) 325 mg PO Q4 PRN PRN Reason: Fever >100.4 F Apixaban (Eliquis) 5 mg PO BID [facility] PRN Reason: Protocol Last Admin: 03/07/17 08:23 Dose: 5 mg Aspirin (Ecotrin) 81 mg PO DAILY [facility] Last Admin: 03/07/17 08:24 Dose: 81 mg Atorvastatin Calcium (Lipitor) 40 mg PO HS [facility] Last Admin: 03/06/17 21:04 Dose: 40 mg Calcitriol (Rocaltrol) 0.25 mcg PO DAILY [facility] Last Admin: 03/07/17 08:22 Dose: 0.25 mcg Calcium Carbonate (Oscal) 500 mg PO BID [facility] Last Admin: 03/07/17 08:22 Dose: 500 mg Collagenase (Santyl) 1 applic TOP 0600 [facility] Last Admin: 03/07/17 06:22 Dose: 1 applic Docusate Sodium (Colace) 100 mg PO BID [facility] Last Admin: 03/07/17 08:22 Dose: 100 mg Epoetin Tha (Procrit) 6,000 unit IV MWF@1630 [facility] Last Admin: 03/05/17 21:37 Dose: 6,000 unit Ergocalciferol (Drisdol 50,000 Intl Units Cap) 1 cap PO Q7D [facility] Last Admin: 03/05/17 08:22 Dose: 1 cap Fluconazole (Diflucan) 100 mg PO DAILY [facility] PRN Reason: Protocol Last Admin: 03/07/17 08:24 Dose: 100 mg Fluticasone Propionate (Flonase) 1 spr ALLAN BID PRN PRN Reason: Dry nasal passages Last Admin: 03/04/17 21:38 Dose: 1 spr Gabapentin (Neurontin) 300 mg PO TID [facility] Last Admin: 03/07/17 12:16 Dose: 300 mg Hydromorphone HCl (Dilaudid) 2 mg PO Q4 PRN PRN Reason: Pain scale 4-10 Last Admin: 03/07/17 08:20 Dose: 2 mg Vancomycin HCl 250 mg/ Sodium (Chloride) 100 mls @ 100 mls/hr IVPB MWF@2000 [facility] PRN Reason: Protocol Last Admin: 03/05/17 21:52 Dose: 100 mls/hr Ceftazidime/Avibactam 0.94 gm/ (Sodium Chloride) 100 mls @ 100 mls/hr IVPB MWF@ 2100 [facility] PRN Reason: Protocol Last Admin: 03/06/17 00:04 Dose: 100 mls/hr Gentamicin Sulfate 40 mg/ (Sodium Chloride) 101 mls @ 100 mls/hr IVPB MWF@2000 [facility] PRN Reason: Protocol Last Admin: 03/05/17 23:02 Dose: 100 mls/hr Sodium Chloride (Sodium Chloride 0.9%) 250 mls @ 10 mls/hr IV .Q24H [facility] Last Admin: 03/06/17 20:45 Dose: 10 mls/hr Lactobacillus Acidophilus (Bacid Acidophilus) 1 cap PO BID [facility] Last Admin: 03/07/17 08:21 Dose: 1 cap Lamotrigine (Lamictal) 50 mg PO Q12 [facility] Last Admin: 03/07/17 08:23 Dose: 50 mg Lamotrigine (Lamictal) 100 mg PO Q12 [facility] Last Admin: 03/07/17 08:24 Dose: 100 mg Metoprolol Tartrate (Lopressor) 25 mg PO Q12 [facility] Last Admin: 03/07/17 08:23 Dose: 25 mg Ondansetron HCl (Zofran Inj) 4 mg IVP Q4 PRN PRN Reason: Nausea/Vomiting Pantoprazole Sodium (Protonix Ec Tab) 40 mg PO DAILY [facility] Last Admin: 03/07/17 08:23 Dose: 40 mg Polyethylene Glycol (Miralax) 8.5 gm PO DAILY@2200 [facility] Last Admin: 03/06/17 21:14 Dose: 8.5 gm Repaglinide (Prandin) 1 mg PO ACTID [facility] Last Admin: 03/07/17 12:15 Dose: 1 mg Sevelamer HCl (Renagel) 1,600 mg PO TID [facility] Last Admin: 03/07/17 12:16 Dose: 1,600 mg Simethicone (Mylicon Chew Tab) 80 mg PO TID [facility] Last Admin: 03/07/17 12:15 Dose: 80 mg Tobramycin/Dexamethasone (Tobradex Opht Susp) 1 drop OU Q6 [facility] Last Admin: 03/07/17 12:15 Dose: 1 drop Vitamin B Complex/Vit C/Folic Acid (Nephro-Ajay) 1 tab PO DAILY [facility] Last Admin: 03/07/17 08:22 Dose: 1 tab - Labs Labs: 03/03/17 17:15 03/03/17 17:15 - Constitutional Appears: No Acute Distress - ENT Exam ENT Exam: Mucous Membranes Moist - Respiratory Exam Respiratory Exam: absent: Chest Wall Tenderness - Cardiovascular Exam Cardiovascular Exam: REGULAR RHYTHM. absent: JVD, Rubs - GI/Abdominal Exam GI & Abdominal Exam: Soft. absent: Distended - Extremities Exam Extremities Exam: absent: Calf Tenderness - Back Exam Back Exam: absent: CVA tenderness (L), CVA tenderness (R) - Neurological Exam Neurological Exam: Alert Assessment and Plan (1) CKD (chronic kidney disease) stage V requiring chronic dialysis Assessment & Plan: End stage renal disease on maintenance hemodialysis Friday. Patient receiving dialysis right now I discussed the ordered with the dialysis nurse Ultrafiltration increased to 3500 mL Potassium bath 2 mEq and Bicarbonate bath 34 Sodium bath 138 Dialysis running through subclavian permacath running well. 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
--- NOTE | 2017-03-07 16:05 | CP.PCM.PN ---
Subjective - Date & Time of Evaluation Date of Evaluation: 03/07/17 Time of Evaluation: 16:02 - Subjective Subjective: Patient having hemodialysis, is a bit tired. She complains of hard stools. So , we will increase the MIralax back up to17 gm in Nepro q evening. Will also restor Sennosides as a standing dose hs, which she may refuse if not needed. No pain, fever, dyspnea, or cough. Glucoses 105-130 on current regimen. Continues with wound care and 3 IV and one po antibiotic. Next wound vac change early next week. Continue current eye drops and will ask Dr. Hernandez to re-evaluate next week. Objective - Vital Signs/Intake and Output Vital Signs (last 24 hours): Temp Pulse Resp BP Pulse Ox 96.1 F L 97 H 20 143/97 H 95 03/07/17 08:25 03/07/17 08:25 03/07/17 08:25 03/07/17 08:25 03/07/17 08:25 Intake and Output: 03/07/17 03/07/17 06:59 18:59 Intake Total 50 360 Balance 50 360 - Medications Medications: Current Medications Acetaminophen (Tylenol 325mg Tab) 650 mg PO Q4 PRN PRN Reason: Pain, Mild (1-3) Acetaminophen (Tylenol 325mg Tab) 325 mg PO Q4 PRN PRN Reason: Fever >100.4 F Apixaban (Eliquis) 5 mg PO BID [facility] PRN Reason: Protocol Last Admin: 03/07/17 08:23 Dose: 5 mg Aspirin (Ecotrin) 81 mg PO DAILY [facility] Last Admin: 03/07/17 08:24 Dose: 81 mg Atorvastatin Calcium (Lipitor) 40 mg PO HS [facility] Last Admin: 03/06/17 21:04 Dose: 40 mg Calcitriol (Rocaltrol) 0.25 mcg PO DAILY [facility] Last Admin: 03/07/17 08:22 Dose: 0.25 mcg Calcium Carbonate (Oscal) 500 mg PO BID [facility] Last Admin: 03/07/17 08:22 Dose: 500 mg Collagenase (Santyl) 1 applic TOP 0600 [facility] Last Admin: 03/07/17 06:22 Dose: 1 applic Docusate Sodium (Colace) 100 mg PO BID [facility] Last Admin: 03/07/17 08:22 Dose: 100 mg Epoetin Tha (Procrit) 6,000 unit IV MWF@1630 [facility] Last Admin: 03/05/17 21:37 Dose: 6,000 unit Ergocalciferol (Drisdol 50,000 Intl Units Cap) 1 cap PO Q7D [facility] Last Admin: 03/05/17 08:22 Dose: 1 cap Fluconazole (Diflucan) 100 mg PO DAILY [facility] PRN Reason: Protocol Last Admin: 03/07/17 08:24 Dose: 100 mg Fluticasone Propionate (Flonase) 1 spr ALLAN BID PRN PRN Reason: Dry nasal passages Last Admin: 03/04/17 21:38 Dose: 1 spr Gabapentin (Neurontin) 300 mg PO TID [facility] Last Admin: 03/07/17 12:16 Dose: 300 mg Hydromorphone HCl (Dilaudid) 2 mg PO Q4 PRN PRN Reason: Pain scale 4-10 Last Admin: 03/07/17 08:20 Dose: 2 mg Vancomycin HCl 250 mg/ Sodium (Chloride) 100 mls @ 100 mls/hr IVPB MWF@2000 [facility] PRN Reason: Protocol Last Admin: 03/05/17 21:52 Dose: 100 mls/hr Ceftazidime/Avibactam 0.94 gm/ (Sodium Chloride) 100 mls @ 100 mls/hr IVPB MWF@ 2100 [facility] PRN Reason: Protocol Last Admin: 03/06/17 00:04 Dose: 100 mls/hr Gentamicin Sulfate 40 mg/ (Sodium Chloride) 101 mls @ 100 mls/hr IVPB MWF@2000 [facility] PRN Reason: Protocol Last Admin: 03/05/17 23:02 Dose: 100 mls/hr Sodium Chloride (Sodium Chloride 0.9%) 250 mls @ 10 mls/hr IV .Q24H [facility] Lactobacillus Acidophilus (Bacid Acidophilus) 1 cap PO BID [facility] Last Admin: 03/07/17 08:21 Dose: 1 cap Lamotrigine (Lamictal) 50 mg PO Q12 [facility] Last Admin: 03/07/17 08:23 Dose: 50 mg Lamotrigine (Lamictal) 100 mg PO Q12 [facility] Last Admin: 03/07/17 08:24 Dose: 100 mg Metoprolol Tartrate (Lopressor) 25 mg PO Q12 [facility] Last Admin: 03/07/17 08:23 Dose: 25 mg Ondansetron HCl (Zofran Inj) 4 mg IVP Q4 PRN PRN Reason: Nausea/Vomiting Pantoprazole Sodium (Protonix Ec Tab) 40 mg PO DAILY [facility] Last Admin: 03/07/17 08:23 Dose: 40 mg Polyethylene Glycol (Miralax) 17 gm PO DAILY@2200 [facility] Repaglinide (Prandin) 1 mg PO ACTID [facility] Last Admin: 03/07/17 12:15 Dose: 1 mg Sennosides (Senokot Tab) 17.2 mg PO HS [facility] Sevelamer HCl (Renagel) 1,600 mg PO TID [facility] Last Admin: 03/07/17 12:16 Dose: 1,600 mg Simethicone (Mylicon Chew Tab) 80 mg PO TID [facility] Last Admin: 03/07/17 12:15 Dose: 80 mg Tobramycin/Dexamethasone (Tobradex Opht Susp) 1 drop OU Q6 [facility] Last Admin: 03/07/17 12:15 Dose: 1 drop Vitamin B Complex/Vit C/Folic Acid (Nephro-Ajay) 1 tab PO DAILY [facility] Last Admin: 03/07/17 08:22 Dose: 1 tab - Labs Labs: 03/03/17 17:15 03/03/17 17:15 - Constitutional Appears: No Acute Distress - Head Exam Head Exam: NORMAL INSPECTION - Eye Exam Eye Exam: Normal appearance - ENT Exam ENT Exam: Mucous Membranes Moist - Neck Exam Neck Exam: Normal Inspection - Respiratory Exam Respiratory Exam: Clear to Ausculation Bilateral, NORMAL BREATHING PATTERN - Cardiovascular Exam Cardiovascular Exam: REGULAR RHYTHM, +S1, +S2 - GI/Abdominal Exam GI & Abdominal Exam: Soft - Extremities Exam Additional comments: Dressings intact RLE. L femoral vein PICC line intact. Hands warm. L residual limb warm. - Back Exam Back Exam: NORMAL INSPECTION - Neurological Exam Neurological Exam: Alert, Oriented x3 - Psychiatric Exam Psychiatric exam: Normal Affect, Normal Mood - Skin Skin Exam: Dry, Normal Color, Warm Assessment and Plan (1) Elevated liver enzymes Status: Acute (2) Status post below knee amputation of right lower extremity Status: Acute (3) Infection of amputation stump of right lower extremity Status: Acute (4) DM type 2 (diabetes mellitus, type 2) Status: Chronic (5) ESRD (end stage renal disease) on dialysis Status: Chronic (6) Diabetic retinopathy Status: Acute (7) Seizure disorder Status: Acute (8) Gallstones without obstruction of gallbladder Status: Acute (9) Coagulopathy Status: Chronic (10) 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 WILL ORDER LABS FOR SATURDAY 03/10.
[2017-03-07] MEDS: Epoetin Alfa 20000 UNIT/ML Inj IV SCH (17:23)
--- NOTE | 2017-03-07 20:16 | PN ---
DATE: ENDOCRINOLOGY FOLLOWUP NOTE LOCATION: Room 625. SUBJECTIVE: This is a 46-year-old female with recent uncontrolled type 2 insulin-requiring diabetes, now taken off insulin therapy and has improved remarkably on just a low dose oral hypoglycemic drug therapy as given. She is receiving ongoing IV antibiotic management for right below-knee amputation as noted. Moreover, she is also undergoing acute rehabilitation therapy following the recent right below-knee amputation and a prior left below-knee amputation as initiated. Her glucose levels today have ranged from 104-118 and 132 mg/dL. So, at this time, we will continue her Prandin given as 1 mg p.o. t.i.d. before meals as ordered. We will titrate incremental as indicated to optimize metabolic control. We will follow. Irene Ambrose MD
[2017-03-07] MEDS ORDERED: Sodium Chloride 0.9% 250 ML IV SCH (20:45)
[2017-03-07] MEDS: Vancomycin 250 MG in Sodium Chloride 0.9% 100 ML IVPB SCH (22:08)
[2017-03-07] MEDS: POLYETHYLENE GLYCOL 3350 17 GM/Dose PACKET PO SCH (22:21)
[2017-03-08] MEDS: Santyl Collagenase OINTMENT TOP SCH (06:03)
[2017-03-08] MEDS: Dexamethasone/Tobramycin Ophth Susp OU SCH ×4 (06:03→23:19)
[2017-03-08] MEDS: Simethicone 80 mg Chewtab PO SCH ×3 (08:08→17:09)
[2017-03-08] MEDS: Multivitamin Vitamin B Complex (Nephro-Vite) Tab PO SCH (08:08)
[2017-03-08] MEDS: Pantoprazole 40 mg EC Tab PO SCH (08:09)
[2017-03-08] MEDS: Lactobacillus Acidophilus 500 MU Cap PO SCH ×2 (08:13→17:07)
[2017-03-08] MEDS ORDERED: Sodium Chloride 0.9% 250 ML IV SCH (20:45)
[2017-03-08] MEDS: POLYETHYLENE GLYCOL 3350 17 GM/Dose PACKET PO SCH (22:02)
--- NOTE | 2017-03-09 01:43 | PN ---
DATE: LOCATION: Room 625. SUBJECTIVE: This is a 46-year-old female with recent uncontrolled type 2 diabetes, now with improved glycemic profile on just the low-dose oral hypoglycemic drug therapy as given. Her glucose levels have ranged from 102-142 mg/dL. Her latest chemistries showed a BUN of 85, sodium 143, potassium 5.5, chloride 105, CO2 of 23, glucose 160, and creatinine 8.0. So at this time, we will continue the low-dose oral hypoglycemic drug therapy as given with Prandin given as 1 mg p.o. t.i.d. before meals as ordered. We will titrate incrementally as indicated to optimize metabolic control. We will follow and advise accordingly. Irene Ambrose MD
[2017-03-09] MEDS: Dexamethasone/Tobramycin Ophth Susp OU SCH ×3 (07:11→18:05)
[2017-03-09] MEDS: Santyl Collagenase OINTMENT TOP SCH (07:11)
[2017-03-09] MEDS: Lactobacillus Acidophilus 500 MU Cap PO SCH ×2 (08:09→16:30)
[2017-03-09] MEDS: Multivitamin Vitamin B Complex (Nephro-Vite) Tab PO SCH (08:10)
[2017-03-09] MEDS: Pantoprazole 40 mg EC Tab PO SCH (08:11)
[2017-03-09] MEDS: Simethicone 80 mg Chewtab PO SCH ×3 (08:11→16:31)
--- NOTE | 2017-03-09 13:32 | CP.PCM.PN ---
Subjective - Date & Time of Evaluation Date of Evaluation: 03/09/17 Time of Evaluation: 13:28 - Subjective Subjective: Patient is making nice progress in rehabilitation, but in order to go home she needs to be able to safely transfer from bed to wheelchair to toilet. I am not certain she is quite at that point. She does not want to spend the rest of her life in a prison, and indeed she should not. However, she may need a few more weeks of acute rehabilitation. I would prefer that it be here at [facility] because her need for antibiotics and wound care are significant. Currently the patient is on 3 iv antibiotics: Avycaz, Vancomycin, and gentamicin. She is also on po fluconazole for fungal prophylaxis. Will see if patient can be transferred back to TCU to complete iv antibiotic and wound care instead of going to outside SNF. Diabetes is controlled on Prandin - last glucose = 124. Will monitor eye problem and check with Dr. Hernandez regarding follow-up. Patient will need medic alert when she goes home - will reach out to marriage and family social worker for this. Objective - Vital Signs/Intake and Output Vital Signs (last 24 hours): Temp Pulse Resp BP Pulse Ox 97.3 F L 93 H 20 143/65 98 03/09/17 08:31 03/09/17 08:31 03/09/17 08:31 03/09/17 08:31 03/09/17 08:31 Intake and Output: 03/09/17 03/09/17 06:59 18:59 Intake Total 420 Balance 420 - Medications Medications: Current Medications Acetaminophen (Tylenol 325mg Tab) 650 mg PO Q4 PRN PRN Reason: Pain, Mild (1-3) Acetaminophen (Tylenol 325mg Tab) 325 mg PO Q4 PRN PRN Reason: Fever >100.4 F Apixaban (Eliquis) 5 mg PO BID [facility] PRN Reason: Protocol Last Admin: 03/09/17 08:10 Dose: 5 mg Aspirin (Ecotrin) 81 mg PO DAILY [facility] Last Admin: 03/09/17 08:10 Dose: 81 mg Atorvastatin Calcium (Lipitor) 40 mg PO HS [facility] Last Admin: 03/08/17 21:56 Dose: 40 mg Calcitriol (Rocaltrol) 0.25 mcg PO DAILY [facility] Last Admin: 03/09/17 08:11 Dose: 0.25 mcg Calcium Carbonate (Oscal) 500 mg PO BID [facility] Last Admin: 03/09/17 08:10 Dose: 500 mg Collagenase (Santyl) 1 applic TOP 0600 [facility] Last Admin: 03/09/17 07:11 Dose: 1 applic Docusate Sodium (Colace) 100 mg PO BID [facility] Last Admin: 03/09/17 08:10 Dose: 100 mg Epoetin Tha (Procrit) 6,000 unit IV MWF@1630 [facility] Last Admin: 03/07/17 17:23 Dose: 6,000 unit Ergocalciferol (Drisdol 50,000 Intl Units Cap) 1 cap PO Q7D [facility] Last Admin: 03/05/17 08:22 Dose: 1 cap Fluconazole (Diflucan) 100 mg PO DAILY [facility] PRN Reason: Protocol Last Admin: 03/09/17 08:10 Dose: 100 mg Fluticasone Propionate (Flonase) 1 spr ALLAN BID PRN PRN Reason: Dry nasal passages Last Admin: 03/04/17 21:38 Dose: 1 spr Gabapentin (Neurontin) 300 mg PO TID [facility] Last Admin: 03/09/17 12:08 Dose: 300 mg Hydromorphone HCl (Dilaudid) 2 mg PO Q4 PRN PRN Reason: Pain scale 4-10 Last Admin: 03/09/17 08:14 Dose: 2 mg Vancomycin HCl 250 mg/ Sodium (Chloride) 100 mls @ 100 mls/hr IVPB MWF@2000 [facility] PRN Reason: Protocol Last Admin: 03/07/17 22:08 Dose: 100 mls/hr Ceftazidime/Avibactam 0.94 gm/ (Sodium Chloride) 100 mls @ 100 mls/hr IVPB MWF@ 2100 [facility] PRN Reason: Protocol Last Admin: 03/07/17 23:08 Dose: 100 mls/hr Gentamicin Sulfate 40 mg/ (Sodium Chloride) 101 mls @ 100 mls/hr IVPB MWF@2000 [facility] PRN Reason: Protocol Last Admin: 03/07/17 20:53 Dose: 100 mls/hr Sodium Chloride (Sodium Chloride 0.9%) 250 mls @ 10 mls/hr IV .Q24H [facility] Last Admin: 03/08/17 21:54 Dose: 10 mls/hr Lactobacillus Acidophilus (Bacid Acidophilus) 1 cap PO BID [facility] Last Admin: 03/09/17 08:09 Dose: 1 cap Lamotrigine (Lamictal) 50 mg PO Q12 [facility] Last Admin: 03/09/17 08:09 Dose: 50 mg Lamotrigine (Lamictal) 100 mg PO Q12 [facility] Last Admin: 03/09/17 08:11 Dose: 100 mg Metoprolol Tartrate (Lopressor) 25 mg PO Q12 [facility] Last Admin: 03/09/17 08:11 Dose: 25 mg Ondansetron HCl (Zofran Inj) 4 mg IVP Q4 PRN PRN Reason: Nausea/Vomiting Pantoprazole Sodium (Protonix Ec Tab) 40 mg PO DAILY [facility] Last Admin: 03/09/17 08:11 Dose: 40 mg Polyethylene Glycol (Miralax) 17 gm PO DAILY@2200 [facility] Last Admin: 03/08/17 22:02 Dose: 17 gm Repaglinide (Prandin) 1 mg PO ACTID [facility] Last Admin: 03/09/17 12:07 Dose: 1 mg Sennosides (Senokot Tab) 17.2 mg PO HS [facility] Last Admin: 03/08/17 21:56 Dose: 17.2 mg Sevelamer HCl (Renagel) 1,600 mg PO TID [facility] Last Admin: 03/09/17 12:07 Dose: 1,600 mg Simethicone (Mylicon Chew Tab) 80 mg PO TID [facility] Last Admin: 03/09/17 12:07 Dose: 80 mg Tobramycin/Dexamethasone (Tobradex Opht Susp) 1 drop OU Q6 [facility] Last Admin: 03/09/17 12:07 Dose: 1 drop Vitamin B Complex/Vit C/Folic Acid (Nephro-Ajay) 1 tab PO DAILY [facility] Last Admin: 03/09/17 08:10 Dose: 1 tab - Labs Labs: 03/03/17 17:15 03/03/17 17:15 - Head Exam Head Exam: NORMAL INSPECTION - Eye Exam Eye Exam: Normal appearance - ENT Exam ENT Exam: Mucous Membranes Moist - Neck Exam Neck Exam: Normal Inspection - Respiratory Exam Respiratory Exam: Clear to Ausculation Bilateral, NORMAL BREATHING PATTERN - Cardiovascular Exam Cardiovascular Exam: REGULAR RHYTHM, +S1, +S2 - GI/Abdominal Exam GI & Abdominal Exam: Soft - Extremities Exam Additional comments: Dressings intact RLE. - Back Exam Back Exam: NORMAL INSPECTION - Psychiatric Exam Psychiatric exam: Normal Affect, Normal Mood - Skin Skin Exam: Dry, Normal Color, Warm Assessment and Plan (1) Elevated liver enzymes Assessment & Plan: Will check labs tomorrow. Status: Acute (2) Status post below knee amputation of right lower extremity Assessment & Plan: See subjective. Status: Acute (3) Infection of amputation stump of right lower extremity Assessment & Plan: Wound care nurse to change wound vac tomorrow. Continue same antibiotics post hemodialysis. Check gentamicin and vancomycin trough levels tomorrow. Status: Acute (4) DM type 2 (diabetes mellitus, type 2) Assessment & Plan: Controlled. Status: Chronic (5) ESRD (end stage renal disease) on dialysis Assessment & Plan: Stable Status: Chronic (6) Diabetic retinopathy Assessment & Plan: Needs follow-up by ophthalmology. Status: Acute (7) Seizure disorder Assessment & Plan: Stable on Lamictal. No seizures. Status: Acute (8) Gallstones without obstruction of gallbladder Status: Acute (9) Coagulopathy Assessment & Plan: Eliquis and ASA to continue indefinitely. 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 Status: Acute (11) Peripheral arterial occlusive disease Status: Chronic (12) Hyperlipidemia Status: Chronic (13) Supraventricular tachycardia Assessment & Plan: controlled on metoprolol. Status: Acute
--- NOTE | 2017-03-09 17:08 | PN ---
DATE: ENDOCRINOLOGY FOLLOWUP NOTE LOCATION: Room 625. SUBJECTIVE: This is a 46-year-old female with recent uncontrolled type 2 diabetes, now being followed closely for metabolic management. Her glycemic levels are fluctuating but much improved at this time and the latest glucose levels have ranged from 124-142 mg/dL. So, at this time, we will continue the modified basal and premixed insulin regimen to allow for dose equilibration and keep her on the low-dose oral hypoglycemic drug therapy as given. We will continue her Prandin given as 1 mg p.o. t.i.d. with meals as ordered. We will titrate incremental as indicated to optimize metabolic control. We will follow. Irene Ambrose MD
[2017-03-09] MEDS: Sodium Chloride 0.9% 250 ML IV SCH (21:42)
[2017-03-09] MEDS: POLYETHYLENE GLYCOL 3350 17 GM/Dose PACKET PO SCH (21:51)
[2017-03-10] MEDS: Dexamethasone/Tobramycin Ophth Susp OU SCH ×5 (00:23→23:09)
[2017-03-10] MEDS: Santyl Collagenase OINTMENT TOP SCH (06:47)
[2017-03-10] MEDS: Simethicone 80 mg Chewtab PO SCH ×3 (09:01→19:02)
[2017-03-10] MEDS: Pantoprazole 40 mg EC Tab PO SCH (09:02)
[2017-03-10] MEDS: Multivitamin Vitamin B Complex (Nephro-Vite) Tab PO SCH (09:03)
--- NOTE | 2017-03-10 10:57 | CP.PCM.PN ---
Subjective - Date & Time of Evaluation Date of Evaluation: 03/10/17 Time of Evaluation: 10:55 - Subjective Subjective: Patient consciousness awake Patient remained in good spirit Appetite is good Patient receiving rehabilitation and physiotherapy Objective - Vital Signs/Intake and Output Vital Signs (last 24 hours): Temp Pulse Resp BP Pulse Ox 97.0 F L 92 H 19 161/72 H 95 03/10/17 09:17 03/10/17 09:17 03/10/17 09:17 03/10/17 09:17 03/10/17 09:17 Intake and Output: 03/10/17 03/10/17 06:59 18:59 Intake Total 360 Balance 360 - Medications Medications: Current Medications Acetaminophen (Tylenol 325mg Tab) 650 mg PO Q4 PRN PRN Reason: Pain, Mild (1-3) Acetaminophen (Tylenol 325mg Tab) 325 mg PO Q4 PRN PRN Reason: Fever >100.4 F Apixaban (Eliquis) 5 mg PO BID [facility] PRN Reason: Protocol Last Admin: 03/10/17 08:59 Dose: 5 mg Aspirin (Ecotrin) 81 mg PO DAILY [facility] Last Admin: 03/10/17 08:59 Dose: 81 mg Atorvastatin Calcium (Lipitor) 40 mg PO HS [facility] Last Admin: 03/09/17 21:44 Dose: 40 mg Calcitriol (Rocaltrol) 0.25 mcg PO DAILY [facility] Last Admin: 03/09/17 08:11 Dose: 0.25 mcg Calcium Carbonate (Oscal) 500 mg PO BID [facility] Last Admin: 03/10/17 09:04 Dose: 500 mg Collagenase (Santyl) 1 applic TOP 0600 [facility] Last Admin: 03/10/17 06:47 Dose: 1 applic Docusate Sodium (Colace) 100 mg PO BID [facility] Last Admin: 03/10/17 08:58 Dose: 100 mg Epoetin Tha (Procrit) 6,000 unit IV MWF@1630 [facility] Last Admin: 03/07/17 17:23 Dose: 6,000 unit Ergocalciferol (Drisdol 50,000 Intl Units Cap) 1 cap PO Q7D [facility] Last Admin: 03/05/17 08:22 Dose: 1 cap Fluconazole (Diflucan) 100 mg PO DAILY [facility] PRN Reason: Protocol Last Admin: 03/10/17 08:58 Dose: 100 mg Fluticasone Propionate (Flonase) 1 spr ALLAN BID PRN PRN Reason: Dry nasal passages Last Admin: 03/04/17 21:38 Dose: 1 spr Gabapentin (Neurontin) 300 mg PO TID [facility] Last Admin: 03/10/17 09:05 Dose: 300 mg Hydromorphone HCl (Dilaudid) 2 mg PO Q4 PRN PRN Reason: Pain scale 4-10 Last Admin: 03/10/17 08:55 Dose: 2 mg Vancomycin HCl 250 mg/ Sodium (Chloride) 100 mls @ 100 mls/hr IVPB MWF@2000 [facility] PRN Reason: Protocol Last Admin: 03/07/17 22:08 Dose: 100 mls/hr Ceftazidime/Avibactam 0.94 gm/ (Sodium Chloride) 100 mls @ 100 mls/hr IVPB MWF@ 2100 [facility] PRN Reason: Protocol Last Admin: 03/07/17 23:08 Dose: 100 mls/hr Gentamicin Sulfate 40 mg/ (Sodium Chloride) 101 mls @ 100 mls/hr IVPB MWF@2000 [facility] PRN Reason: Protocol Last Admin: 03/07/17 20:53 Dose: 100 mls/hr Sodium Chloride (Sodium Chloride 0.9%) 250 mls @ 10 mls/hr IV .Q24H [facility] Last Admin: 03/09/17 21:42 Dose: 10 mls/hr Lactobacillus Acidophilus (Bacid Acidophilus) 1 cap PO BID [facility] Last Admin: 03/09/17 16:30 Dose: 1 cap Lamotrigine (Lamictal) 50 mg PO Q12 [facility] Last Admin: 03/10/17 09:00 Dose: 50 mg Lamotrigine (Lamictal) 100 mg PO Q12 [facility] Last Admin: 03/10/17 09:00 Dose: 100 mg Metoprolol Tartrate (Lopressor) 25 mg PO Q12 [facility] Last Admin: 03/10/17 09:01 Dose: 25 mg Ondansetron HCl (Zofran Inj) 4 mg IVP Q4 PRN PRN Reason: Nausea/Vomiting Pantoprazole Sodium (Protonix Ec Tab) 40 mg PO DAILY [facility] Last Admin: 03/10/17 09:02 Dose: 40 mg Polyethylene Glycol (Miralax) 17 gm PO DAILY@2200 [facility] Last Admin: 03/09/17 21:51 Dose: Not Given Repaglinide (Prandin) 1 mg PO ACTID [facility] Last Admin: 03/10/17 09:03 Dose: 1 mg Sennosides (Senokot Tab) 17.2 mg PO HS [facility] Last Admin: 03/09/17 21:44 Dose: 17.2 mg Sevelamer HCl (Renagel) 1,600 mg PO TID [facility] Last Admin: 03/10/17 09:02 Dose: 1,600 mg Simethicone (Mylicon Chew Tab) 80 mg PO TID [facility] Last Admin: 03/10/17 09:01 Dose: 80 mg Tobramycin/Dexamethasone (Tobradex Opht Susp) 1 drop OU Q6 [facility] Last Admin: 03/10/17 06:46 Dose: 1 drop Vitamin B Complex/Vit C/Folic Acid (Nephro-Ajay) 1 tab PO DAILY [facility] Last Admin: 03/10/17 09:03 Dose: 1 tab - Labs Labs: 03/03/17 17:15 03/03/17 17:15 - Constitutional Appears: No Acute Distress - ENT Exam ENT Exam: Mucous Membranes Moist - Respiratory Exam Respiratory Exam: NORMAL BREATHING PATTERN. absent: Chest Wall Tenderness - Cardiovascular Exam Cardiovascular Exam: REGULAR RHYTHM. absent: Diastolic murmur, Rubs - GI/Abdominal Exam GI & Abdominal Exam: Soft, Normal Bowel Sounds - Extremities Exam Extremities Exam: absent: Calf Tenderness - Back Exam Back Exam: absent: CVA tenderness (L), CVA tenderness (R) - Neurological Exam Neurological Exam: Alert - Psychiatric Exam Psychiatric exam: Normal Affect, Normal Mood - Skin Skin Exam: absent: Cyanosis Assessment and Plan (1) CKD (chronic kidney disease) stage V requiring chronic dialysis Assessment & Plan: And this stage renal disease patient receiving dialysis Friday. She scheduled for dialysis after completing session of 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
[2017-03-10] MEDS: Lactobacillus Acidophilus 500 MU Cap PO SCH ×2 (12:21→19:01)
[2017-03-10] MEDS ORDERED: Gentamicin 40 MG in Sodium Chloride 0.9% 50 ML IVPB SCH (15:00)
[2017-03-10 15:27] LABS: HEMATOCRIT 32.4 % (34.0-47.0); MEAN CELL VOLUME 92.5 fl (81.0-99.0); MEAN CORPUSCULAR HEMOGLOBIN 30.1 pg (27.0-31.0); MEAN CORPUSCULAR HGB CONC 32.5 g/dL (33.0-37.0); RED CELL DISTRIBUTION WIDTH 17.4 % (11.5-14.5); WHITE BLOOD COUNT 8.4 K/uL (4.8-10.8)
[2017-03-10 15:28] LABS: BASO # 0.1 K/uL (0.0-0.2); BASO % 0.8 % (0.0-2.0); EOS # 0.7 K/uL (0.0-0.7); EOS % 8.1 % (0.0-4.0); HEMATOCRIT 32.4 % (34.0-47.0); LYMPH # 1.4 K/uL (1.0-4.3); LYMPH % 16.3 % (20.0-40.0); MEAN CELL VOLUME 92.5 fl (81.0-99.0); MEAN CORPUSCULAR HGB CONC 32.4 g/dL (33.0-37.0); MEAN PLATELET VOLUME 9.1 fl (7.2-11.7); MONO # 0.8 K/uL (0.0-0.8); MONO % 9.7 % (0.0-10.0); NEUT # 5.5 K/uL (1.8-7.0); NEUT % 65.1 % (50.0-75.0); RED CELL DISTRIBUTION WIDTH 17.5 % (11.5-14.5); WHITE BLOOD COUNT 8.5 K/uL (4.8-10.8)
--- NOTE | 2017-03-10 15:38 | CP.PCM.PN ---
Subjective - Date & Time of Evaluation Date of Evaluation: 03/10/17 Time of Evaluation: 15:34 - Subjective Subjective: Patient continues to make progress in rehabilitation with increased truncal strength, greater confidence in putting weight on L BK prosthesis, and improving in transfers. We talked about her needs for when she goes home. She has an over the toilet commode and a motorized wheelchair. We need to explore if she would qualify for (desire) a full-electric hospital bed to facilitate transfers. She said she tried the [id number] device, but did not feel it was helpful. Wound care nurse Jessica Ocasio did right BK wound vac change and dressing right patellare wound today. 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 The BK surgical wound continues to granulate and heal from below and from the sides, so there is great improvement. Patient continues to require three IV antibiotics for osteomyelitis - Avycaz, gentamicin, and vancomycin - plus oral fluconazole. These were renewed today. Trough levels of vanco and gentamicin were drawn today and are pending. Other blood work was also drawn by dialysis nurse and is pending. Hemodialysis is in progress. Limited physical exam shows no changes. Diabetes is managed by Dr. mAbrose. On Prandin 1mg tid ac, the glucose was 84 earlier. No seizures, No clotting. Pain is managed by po Dilaudid and is mainly needed for dressing changes. Objective - Vital Signs/Intake and Output Vital Signs (last 24 hours): Temp Pulse Resp BP Pulse Ox 97.0 F L 92 H 19 161/72 H 95 03/10/17 09:17 03/10/17 09:17 03/10/17 09:17 03/10/17 09:17 03/10/17 09:17 Intake and Output: 03/10/17 03/10/17 06:59 18:59 Intake Total 360 Balance 360 - Medications Medications: Current Medications Acetaminophen (Tylenol 325mg Tab) 650 mg PO Q4 PRN PRN Reason: Pain, Mild (1-3) Acetaminophen (Tylenol 325mg Tab) 325 mg PO Q4 PRN PRN Reason: Fever >100.4 F Apixaban (Eliquis) 5 mg PO BID [facility] PRN Reason: Protocol Last Admin: 03/10/17 08:59 Dose: 5 mg Aspirin (Ecotrin) 81 mg PO DAILY [facility] Last Admin: 03/10/17 08:59 Dose: 81 mg Atorvastatin Calcium (Lipitor) 40 mg PO HS [facility] Last Admin: 03/09/17 21:44 Dose: 40 mg Calcitriol (Rocaltrol) 0.25 mcg PO DAILY [facility] Last Admin: 03/10/17 12:23 Dose: 0.25 mcg Calcium Carbonate (Oscal) 500 mg PO BID [facility] Last Admin: 03/10/17 09:04 Dose: 500 mg Collagenase (Santyl) 1 applic TOP 0600 [facility] Last Admin: 03/10/17 06:47 Dose: 1 applic Docusate Sodium (Colace) 100 mg PO BID [facility] Last Admin: 03/10/17 08:58 Dose: 100 mg Epoetin Tha (Procrit) 6,000 unit IV MWF@1630 [facility] Last Admin: 03/07/17 17:23 Dose: 6,000 unit Ergocalciferol (Drisdol 50,000 Intl Units Cap) 1 cap PO Q7D [facility] Last Admin: 03/05/17 08:22 Dose: 1 cap Fluconazole (Diflucan) 100 mg PO DAILY [facility] PRN Reason: Protocol Last Admin: 03/10/17 08:58 Dose: 100 mg Fluticasone Propionate (Flonase) 1 spr ALLAN BID PRN PRN Reason: Dry nasal passages Last Admin: 03/04/17 21:38 Dose: 1 spr Gabapentin (Neurontin) 300 mg PO TID [facility] Last Admin: 03/10/17 12:22 Dose: 300 mg Hydromorphone HCl (Dilaudid) 2 mg PO Q4 PRN PRN Reason: Pain scale 4-10 Last Admin: 03/10/17 15:05 Dose: 2 mg Vancomycin HCl 250 mg/ Sodium (Chloride) 100 mls @ 100 mls/hr IVPB MWF@2000 [facility] PRN Reason: Protocol Last Admin: 03/07/17 22:08 Dose: 100 mls/hr Sodium Chloride (Sodium Chloride 0.9%) 250 mls @ 10 mls/hr IV .Q24H [facility] Last Admin: 03/09/17 21:42 Dose: 10 mls/hr Ceftazidime/Avibactam 0.94 gm/ (Sodium Chloride) 100 mls @ 100 mls/hr IVPB MWF [facility] PRN Reason: Protocol Gentamicin Sulfate 40 mg/ (Sterile Water) 6 mls @ 5 mls/hr IVPB [facility] PRN Reason: Protocol Lactobacillus Acidophilus (Bacid Acidophilus) 1 cap PO BID [facility] Last Admin: 03/10/17 12:21 Dose: 1 cap Lamotrigine (Lamictal) 50 mg PO Q12 [facility] Last Admin: 03/10/17 09:00 Dose: 50 mg Lamotrigine (Lamictal) 100 mg PO Q12 [facility] Last Admin: 03/10/17 09:00 Dose: 100 mg Metoprolol Tartrate (Lopressor) 25 mg PO Q12 [facility] Last Admin: 03/10/17 09:01 Dose: 25 mg Ondansetron HCl (Zofran Inj) 4 mg IVP Q4 PRN PRN Reason: Nausea/Vomiting Pantoprazole Sodium (Protonix Ec Tab) 40 mg PO DAILY [facility] Last Admin: 03/10/17 09:02 Dose: 40 mg Polyethylene Glycol (Miralax) 17 gm PO DAILY@2200 [facility] Last Admin: 03/09/17 21:51 Dose: Not Given Repaglinide (Prandin) 1 mg PO ACTID [facility] Last Admin: 03/10/17 12:22 Dose: 1 mg Sennosides (Senokot Tab) 17.2 mg PO HS [facility] Last Admin: 03/09/17 21:44 Dose: 17.2 mg Sevelamer HCl (Renagel) 1,600 mg PO TID [facility] Last Admin: 03/10/17 12:22 Dose: 1,600 mg Simethicone (Mylicon Chew Tab) 80 mg PO TID [facility] Last Admin: 03/10/17 12:24 Dose: 80 mg Tobramycin/Dexamethasone (Tobradex Opht Susp) 1 drop OU Q6 [facility] Last Admin: 03/10/17 12:23 Dose: 1 drop Vitamin B Complex/Vit C/Folic Acid (Nephro-Ajay) 1 tab PO DAILY [facility] Last Admin: 03/10/17 09:03 Dose: 1 tab - Labs Labs: 03/03/17 17:15 03/03/17 17:15 LABS FOR 03.10.17 ARE PENDING. - Constitutional Appears: No Acute Distress - Head Exam Head Exam: NORMAL INSPECTION - Eye Exam Eye Exam: Normal appearance - ENT Exam ENT Exam: Mucous Membranes Moist - Neck Exam Neck Exam: Normal Inspection - Respiratory Exam Respiratory Exam: Clear to Ausculation Bilateral, NORMAL BREATHING PATTERN - Cardiovascular Exam Cardiovascular Exam: REGULAR RHYTHM, +S1, +S2 - GI/Abdominal Exam GI & Abdominal Exam: Soft - Exam Additional comments: SEE SUBJECTIVE. L femoral vein PICC line intact. Hands warm. - Psychiatric Exam Psychiatric exam: Normal Affect, Normal Mood - Skin Skin Exam: Dry, Normal Color, Warm Assessment and Plan (1) Elevated liver enzymes Assessment & Plan: Await labs Status: Acute (2) Status post below knee amputation of right lower extremity Assessment & Plan: Not quite ready to go home because of need for 3 iv antibiotics and twice weekly wound vac and daily patellar debridement. However, she is definitely benefitting from the acute rehabilitation program, which will make a retur to home possible. Status: Acute (3) Infection of amputation stump of right lower extremity Assessment & Plan: SEE SUBJECTIVE. Status: Acute (4) DM type 2 (diabetes mellitus, type 2) Assessment & Plan: Controlled, stable. Status: Chronic (5) ESRD (end stage renal disease) on dialysis Status: Chronic (6) Diabetic retinopathy Assessment & Plan: Must check with Dr. Hernandez on when to stop Tobradex. 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
[2017-03-10 15:41] LABS: ALB/GLOB RATIO 1.1 (1.0-2.1); ALKALINE PHOSPHATASE 198 U/L (38-126); ALT/SGPT 40 U/L (9-52); AST/SGOT 40 U/L (14-36); BILIRUBIN,TOTAL 0.3 mg/dl (0.2-1.3); BLOOD UREA NITROGEN 92 mg/dl (7-17); CALCIUM 8.7 mg/dL (8.4-10.2); CARBON DIOXIDE 22 mmol/L (22-30); CHLORIDE 100 mmol/L (98-107); CHOLESTEROL 98 mg/dL (0-199); GFR AFRICAN-AMERICAN 6; GLUCOSE,RANDOM 178 mg/dL (65-105); POTASSIUM 5.4 MMOL/L (3.6-5.0); SODIUM 140 mmol/l (132-148); TOTAL PROTEIN 8.8 G/DL (6.3-8.2)
[2017-03-10] MEDS: Epoetin Alfa 20000 UNIT/ML Inj IV SCH (17:05)
[2017-03-10] MEDS: Sodium Chloride 0.9% 250 ML IV SCH (21:51)
[2017-03-10] MEDS: POLYETHYLENE GLYCOL 3350 17 GM/Dose PACKET PO SCH (21:55)
--- NOTE | 2017-03-10 22:11 | PN ---
ENDO FOLLOWUP NOTE LOCATION: Room #625. SUBJECTIVE: This is a 46-year-old female with recent uncontrolled type 2 diabetes, now with improved glycemic profile and glucose values today ranging from 82 to 183 mg/dL. Her latest chemistry showed a BUN of 92, sodium 140, potassium 5.4, chloride 100, CO2 of 22, glucose 178, and creatinine 8.4. So, at this time, we will continue once again the same low-dose oral hypoglycemic drug therapy as ordered with Prandin given as 1 mg p.o. t.i.d. before meals as ordered. We will titrate incrementally as indicated to optimize metabolic control. We will follow this. Irene Ambrose MD
[2017-03-10] MEDS: Vancomycin 250 MG in Sodium Chloride 0.9% 100 ML IVPB SCH (22:53)
[2017-03-11] MEDS: Santyl Collagenase OINTMENT TOP SCH (07:02)
[2017-03-11] MEDS: Dexamethasone/Tobramycin Ophth Susp OU SCH ×2 (07:02→12:18)
[2017-03-11] MEDS: Lactobacillus Acidophilus 500 MU Cap PO SCH ×2 (08:24→16:54)
[2017-03-11] MEDS: Pantoprazole 40 mg EC Tab PO SCH (08:30)
[2017-03-11] MEDS: Simethicone 80 mg Chewtab PO SCH ×3 (08:32→16:51)
[2017-03-11] MEDS: Multivitamin Vitamin B Complex (Nephro-Vite) Tab PO SCH (08:32)
--- NOTE | 2017-03-11 11:28 | CP.PCM.PN ---
Subjective - Date & Time of Evaluation Date of Evaluation: 03/11/17 Time of Evaluation: 11:26 - Subjective Subjective: Patient receiving physiotherapy Patient feeling very good Objective - Vital Signs/Intake and Output Vital Signs (last 24 hours): Temp Pulse Resp BP Pulse Ox 96.9 F L 101 H 19 150/49 L 97 03/11/17 08:38 03/11/17 08:38 03/11/17 08:38 03/11/17 08:38 03/11/17 08:38 Intake and Output: 03/11/17 03/11/17 06:59 18:59 Intake Total 540 Balance 540 - Medications Medications: Current Medications Acetaminophen (Tylenol 325mg Tab) 650 mg PO Q4 PRN PRN Reason: Pain, Mild (1-3) Acetaminophen (Tylenol 325mg Tab) 325 mg PO Q4 PRN PRN Reason: Fever >100.4 F Apixaban (Eliquis) 5 mg PO BID [facility] PRN Reason: Protocol Last Admin: 03/11/17 08:28 Dose: 5 mg Aspirin (Ecotrin) 81 mg PO DAILY [facility] Last Admin: 03/11/17 08:29 Dose: 81 mg Atorvastatin Calcium (Lipitor) 40 mg PO HS [facility] Last Admin: 03/10/17 21:52 Dose: 40 mg Calcitriol (Rocaltrol) 0.25 mcg PO DAILY [facility] Last Admin: 03/11/17 08:29 Dose: 0.25 mcg Calcium Carbonate (Oscal) 500 mg PO BID [facility] Last Admin: 03/11/17 08:29 Dose: 500 mg Collagenase (Santyl) 1 applic TOP 0600 [facility] Last Admin: 03/11/17 07:02 Dose: 1 applic Docusate Sodium (Colace) 100 mg PO BID [facility] Last Admin: 03/11/17 08:28 Dose: 100 mg Ergocalciferol (Drisdol 50,000 Intl Units Cap) 1 cap PO Q7D [facility] Last Admin: 03/05/17 08:22 Dose: 1 cap Fluconazole (Diflucan) 100 mg PO DAILY [facility] PRN Reason: Protocol Last Admin: 03/11/17 08:28 Dose: 100 mg Fluticasone Propionate (Flonase) 1 spr ALLAN BID PRN PRN Reason: Dry nasal passages Last Admin: 03/10/17 22:03 Dose: 1 spr Gabapentin (Neurontin) 300 mg PO TID [facility] Last Admin: 03/11/17 08:27 Dose: 300 mg Hydromorphone HCl (Dilaudid) 2 mg PO Q4 PRN PRN Reason: Pain scale 4-10 Last Admin: 03/11/17 08:24 Dose: 2 mg Vancomycin HCl 250 mg/ Sodium (Chloride) 100 mls @ 100 mls/hr IVPB MWF@2000 [facility] PRN Reason: Protocol Last Admin: 03/10/17 22:53 Dose: 100 mls/hr Sodium Chloride (Sodium Chloride 0.9%) 250 mls @ 10 mls/hr IV .Q24H [facility] Last Admin: 03/10/17 21:51 Dose: 10 mls/hr Gentamicin Sulfate 40 mg/ (Sodium Chloride) 101 mls @ 84.167 mls/hr IVPB MWF@ 2000 [facility] PRN Reason: Protocol Last Admin: 03/10/17 21:50 Dose: 84.167 mls/hr Ceftazidime/Avibactam 0.94 gm/ (Sodium Chloride) 100 mls @ 100 mls/hr IVPB MWF@ 2000 [facility] PRN Reason: Protocol Last Admin: 03/10/17 20:01 Dose: 100 mls/hr Lactobacillus Acidophilus (Bacid Acidophilus) 1 cap PO BID [facility] Last Admin: 03/11/17 08:24 Dose: 1 cap Lamotrigine (Lamictal) 50 mg PO Q12 [facility] Last Admin: 03/11/17 08:27 Dose: 50 mg Lamotrigine (Lamictal) 100 mg PO Q12 [facility] Last Admin: 03/11/17 08:27 Dose: 100 mg Metoprolol Tartrate (Lopressor) 25 mg PO Q12 [facility] Last Admin: 03/11/17 08:32 Dose: 25 mg Ondansetron HCl (Zofran Inj) 4 mg IVP Q4 PRN PRN Reason: Nausea/Vomiting Pantoprazole Sodium (Protonix Ec Tab) 40 mg PO DAILY [facility] Last Admin: 03/11/17 08:30 Dose: 40 mg Polyethylene Glycol (Miralax) 17 gm PO DAILY@2200 [facility] Last Admin: 03/10/17 21:55 Dose: 17 gm Repaglinide (Prandin) 1 mg PO ACTID [facility] Last Admin: 03/11/17 08:26 Dose: 1 mg Sennosides (Senokot Tab) 17.2 mg PO HS [facility] Last Admin: 03/10/17 21:57 Dose: 17.2 mg Sevelamer HCl (Renagel) 1,600 mg PO TID [facility] Last Admin: 03/11/17 08:26 Dose: 1,600 mg Simethicone (Mylicon Chew Tab) 80 mg PO TID [facility] Last Admin: 03/11/17 08:32 Dose: 80 mg Tobramycin/Dexamethasone (Tobradex Opht Susp) 1 drop OU Q6 [facility] Last Admin: 03/11/17 07:02 Dose: 1 drop Vitamin B Complex/Vit C/Folic Acid (Nephro-Ajay) 1 tab PO DAILY [facility] Last Admin: 03/11/17 08:32 Dose: 1 tab - Labs Labs: 03/10/17 15:21 03/10/17 15:21 - Constitutional Appears: No Acute Distress - ENT Exam ENT Exam: Mucous Membranes Moist - Respiratory Exam Respiratory Exam: NORMAL BREATHING PATTERN. 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
--- NOTE | 2017-03-11 15:12 | PN ---
DATE: ENDOCRINOLOGY FOLLOWUP NOTE LOCATION: Room 625. SUBJECTIVE: This is a 46-year-old female with recent uncontrolled type 2 diabetes, now being followed closely for metabolic management. She is undergoing acute rehabilitation and occupational therapy for recent right below-knee amputation and also a prior left below-knee amputation as noted. Her glucose levels were low normal today because of the variability and suboptimal meal portions noted otherwise. Her glucose levels have ranged from 73-183 mg/dL. Her hemoglobin A1c is 6.8%. Her chemistry showed a BUN of 92, sodium 140, potassium 5.4, chloride 100, CO2 of 22, glucose 178, and creatinine 8.4. So, at this time, we will continue the Prandin given as 1 mg p.o. t.i.d. before meals as ordered. We will titrate incrementally as indicated to optimize metabolic control. We will follow and advise accordingly. Irene Ambrose MD
--- NOTE | 2017-03-11 16:07 | CP.PCM.PN ---
Subjective - Date & Time of Evaluation Date of Evaluation: 03/11/17 Time of Evaluation: 15:57 - Subjective Subjective: Patient has a little pain in right residual limb after rehabilitation exercises. Otherwise no complaints. I spoke with Dr. Hernandez's office to request ophthalmology consultation follow- up since patient has been on Tobradex eye drops for > 2 weeks. Her eyes are no longer inflammed. He relayed the message to stop the eye drops. Patient has made excellent progress in rehab, but she is still not independent for transfers from bed to chair to commode, etc. 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 DM is controlled on Prandin. Coagulopathy is addressed with Eliquis and aspirin. Further plans discussed with Dr. Daniels. Objective - Vital Signs/Intake and Output Vital Signs (last 24 hours): Temp Pulse Resp BP Pulse Ox 96.9 F L 101 H 19 150/49 L 97 03/11/17 09:00 03/11/17 09:00 03/11/17 09:00 03/11/17 09:00 03/11/17 08:38 Intake and Output: 03/11/17 03/11/17 06:59 18:59 Intake Total 540 Balance 540 - Medications Medications: Current Medications Acetaminophen (Tylenol 325mg Tab) 650 mg PO Q4 PRN PRN Reason: Pain, Mild (1-3) Acetaminophen (Tylenol 325mg Tab) 325 mg PO Q4 PRN PRN Reason: Fever >100.4 F Apixaban (Eliquis) 5 mg PO BID [facility] PRN Reason: Protocol Last Admin: 03/11/17 08:28 Dose: 5 mg Aspirin (Ecotrin) 81 mg PO DAILY [facility] Last Admin: 03/11/17 08:29 Dose: 81 mg Atorvastatin Calcium (Lipitor) 40 mg PO HS [facility] Last Admin: 03/10/17 21:52 Dose: 40 mg Calcitriol (Rocaltrol) 0.25 mcg PO DAILY [facility] Last Admin: 03/11/17 08:29 Dose: 0.25 mcg Calcium Carbonate (Oscal) 500 mg PO BID [facility] Last Admin: 03/11/17 08:29 Dose: 500 mg Collagenase (Santyl) 1 applic TOP 0600 [facility] Last Admin: 03/11/17 07:02 Dose: 1 applic Docusate Sodium (Colace) 100 mg PO BID [facility] Last Admin: 03/11/17 08:28 Dose: 100 mg Epoetin Tha (Procrit) 4,000 unit IV MWF@1630 [facility] Ergocalciferol (Drisdol 50,000 Intl Units Cap) 1 cap PO Q7D [facility] Last Admin: 03/05/17 08:22 Dose: 1 cap Fluconazole (Diflucan) 100 mg PO DAILY [facility] PRN Reason: Protocol Last Admin: 03/11/17 08:28 Dose: 100 mg Fluticasone Propionate (Flonase) 1 spr ALLAN BID PRN PRN Reason: Dry nasal passages Last Admin: 03/10/17 22:03 Dose: 1 spr Gabapentin (Neurontin) 300 mg PO TID [facility] Last Admin: 03/11/17 12:19 Dose: 300 mg Hydromorphone HCl (Dilaudid) 2 mg PO Q4 PRN PRN Reason: Pain scale 4-10 Last Admin: 03/11/17 13:14 Dose: 2 mg Vancomycin HCl 250 mg/ Sodium (Chloride) 100 mls @ 100 mls/hr IVPB MWF@2000 [facility] PRN Reason: Protocol Last Admin: 03/10/17 22:53 Dose: 100 mls/hr Sodium Chloride (Sodium Chloride 0.9%) 250 mls @ 10 mls/hr IV .Q24H [facility] Last Admin: 03/10/17 21:51 Dose: 10 mls/hr Gentamicin Sulfate 40 mg/ (Sodium Chloride) 101 mls @ 84.167 mls/hr IVPB MWF@ 2000 [facility] PRN Reason: Protocol Last Admin: 03/10/17 21:50 Dose: 84.167 mls/hr Ceftazidime/Avibactam 0.94 gm/ (Sodium Chloride) 100 mls @ 100 mls/hr IVPB MWF@ 2000 [facility] PRN Reason: Protocol Last Admin: 03/10/17 20:01 Dose: 100 mls/hr Lactobacillus Acidophilus (Bacid Acidophilus) 1 cap PO BID [facility] Last Admin: 03/11/17 08:24 Dose: 1 cap Lamotrigine (Lamictal) 50 mg PO Q12 [facility] Last Admin: 03/11/17 08:27 Dose: 50 mg Lamotrigine (Lamictal) 100 mg PO Q12 [facility] Last Admin: 03/11/17 08:27 Dose: 100 mg Metoprolol Tartrate (Lopressor) 25 mg PO Q12 [facility] Last Admin: 03/11/17 08:32 Dose: 25 mg Ondansetron HCl (Zofran Inj) 4 mg IVP Q4 PRN PRN Reason: Nausea/Vomiting Pantoprazole Sodium (Protonix Ec Tab) 40 mg PO DAILY [facility] Last Admin: 03/11/17 08:30 Dose: 40 mg Polyethylene Glycol (Miralax) 17 gm PO DAILY@2200 [facility] Last Admin: 03/10/17 21:55 Dose: 17 gm Repaglinide (Prandin) 1 mg PO ACTID [facility] Last Admin: 03/11/17 12:19 Dose: 1 mg Sennosides (Senokot Tab) 17.2 mg PO HS [facility] Last Admin: 03/10/17 21:57 Dose: 17.2 mg Sevelamer HCl (Renagel) 1,600 mg PO TID [facility] Last Admin: 03/11/17 12:19 Dose: 1,600 mg Simethicone (Mylicon Chew Tab) 80 mg PO TID [facility] Last Admin: 03/11/17 12:20 Dose: 80 mg Vitamin B Complex/Vit C/Folic Acid (Nephro-Ajya) 1 tab PO DAILY [facility] Last Admin: 03/11/17 08:32 Dose: 1 tab - Labs Labs: 03/10/17 15:21 03/10/17 15:21 - Constitutional Appears: No Acute Distress - Head Exam Head Exam: NORMAL INSPECTION - Eye Exam Eye Exam: Normal appearance Additional comments: No conjunctival or corneal inflammation. - ENT Exam ENT Exam: Mucous Membranes Moist - Neck Exam Neck Exam: Normal Inspection - Respiratory Exam Respiratory Exam: NORMAL BREATHING PATTERN - Cardiovascular Exam Cardiovascular Exam: REGULAR RHYTHM - GI/Abdominal Exam GI & Abdominal Exam: Soft - Extremities Exam Additional comments: Dressings and wound vac intact. - Neurological Exam Neurological Exam: Alert, CN II-XII Intact, Oriented x3 - Psychiatric Exam Psychiatric exam: Normal Affect, Normal Mood - Skin Skin Exam: Dry, Normal Color, Warm Assessment and Plan (1) Elevated liver enzymes Status: Acute (2) Status post below knee amputation of right lower extremity Status: Acute (3) Infection of amputation stump of right lower extremity Status: Acute (4) DM type 2 (diabetes mellitus, type 2) Status: Chronic (5) ESRD (end stage renal disease) on dialysis Status: Chronic (6) Diabetic retinopathy Assessment & Plan: Consult requested of Dr. Hernandez for follow-up. Tobracex drops discontinued. 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
--- NOTE | 2017-03-11 16:16 | PSY.TMCNF ---
Nursing - Vital Signs Vital Signs (Last 8 hours): Vital Signs 03/11/17 03/11/17 03/11/17 08:32 08:38 09:00 Temperature 96.9 F L 96.9 F L Pulse Rate 101 H 101 H 101 H Respiratory 19 19 Rate Blood Pressure 150/49 L 150/49 L 150/49 L O2 Sat by Pulse 97 Oximetry Pain: 0 - Precautions: Precautions: Fall Prevention, Pressure Ulcer, Seizure Isolation: Contact - Medications/Other Issues Comment: wound care on antibiotic therapy during dialysis days - Consults Comment: Dr Daniels,Dr Arnol Guadarrama - Skin Incision Site: Rt stump Drainage: Sanguineous Dressing Status: Clean, Dry, Intact Incision Line Treatment: 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 dressing changed by tax attorney Friday and wound on the upper lateral part of the stump on santyl dressing daily by wood router rn - Toileting Toileting: Dependent - Bladder Management Voiding Method: Bedpan - Bowel Management Bowel Pattern: Normal Bowel Management: Dependent - Transfers Transfers: Moderate Assistance - ADL's ADL's: Moderate Assistance - Pain Management Comments: on dilaudid for pain q4h prn - Patient/Family Teaching Comments: Safety fall contact isolation skin care wound care - Goals/Time Frame Comments: as per multidiciplinary plan of care - Provider Provider: Eleazar Angela Physical Therapy - Bed Mobility Bed Mobility: Minimal Assistance, Moderate Assistance Comment: -supine to sit with min/mod A, use of bed rails and HOB elevation. - sit to supine with CG/min A - Transfers Wheelchair to Mat: Verbal Cues, Minimal Assistance, Moderate Assistance Sit to Stand: Verbal Cues, Maximum Assistance, Dependent Comment: slide board transfers - Ambulation Level of Assistance: Independent Orthoses: PRIMARY MODE MOBILITY WHEELCHAIR. -requires assistance to manage arm rests and leg rests. -manges brakes with mod I. -level surface, supervision, frequent rest breaks - Stair Negotiation Stairs: Level of Assistance: Not Tested - Standing Balance Static Stand: Maximal Assistance Dynamic Stand: Unable to assess/perform Comment: 2 person assist for 60 seconds standing trials - Pain Comment: Pt reports pain at times at R residual limb, however is tolerable with current medication regime - Insight/Carryover Insight/Carryover: Good - Patient/Family Education Comment: Recovery after amputation, stump care, compensatory strategies with dressing, transfers, fall prevention and pressure relief techniques, pt benefits from continud education - Assessment/Plan Assessment: Pt continues to demonstrate improvement with intensive OT services, pt displaying increasing standing tolerance with LLE prosthesis in standing frame. Pt requires continued inpatient rehabiliation to address independence with ADLs, functional mobility, in order to return to home environment - Goals Timeframe: 2 weeks Goals: MIN A with bed><chair transfers. MIN A with drop arm bsc transfers utilizing sliding board. MIN A with LE dressing. MOD A with toileting - Provider Therapist: Nadeen Nunes, PT, DPT License Number: [id number] Occupational Therapy - Arousal/Attention/Orientation Level of Consciousness: Awake, Alert Patient Orientation: Person, Place, Time, Appropriate to Age, Appropriate to Situation - ADL/IADL Self Feeding: Set-up Help Grooming: Supervision, Verbal Cues, Set-up Help Dressing-Upper Extremity: Supervision, Verbal Cues, Set-up Help Dressing-Lower Extremity: Verbal Cues, Set-up Help, Maximum Assistance - Sitting Balance Static Sitting: Supervision Dynamic Sitting: Contact Guard Assist - Transfers Wheelchair to Bed Transfers: Verbal Cues, Set-up Help, Moderate Assistance Toilet Transfers: Dependent - Wheelchair Management Level of Assistance: Supervision, Verbal Cues, Set-up Help Distance (ft.): 100 - Upper Extremity Status Right Upper Extremity Comment: ROM WFL, pt with 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, generalized weakness Left Upper Extremity Comment: ROM WFL, pt with 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 , generalized weakness - Pain Comment: Pt reports pain at times at R residual limb, however is tolerable with current medication regime - Insight/Carryover Insight/Carryover: Good - Patient/Family Education Comment: Recovery after amputation, stump care, compensatory strategies with dressing, transfers, fall prevention and pressure relief techniques, pt benefits from continud education - Assessment/Plan Assessment: Pt continues to demonstrate improvement with intensive OT services, pt displaying increasing standing tolerance with LLE prosthesis in standing frame. Pt requires continued inpatient rehabiliation to address independence with ADLs, functional mobility, in order to return to home environment - Goals Timeframe: 2 weeks Goals: MIN A with bed><chair transfers. MIN A with drop arm bsc transfers utilizing sliding board. MIN A with LE dressing. MOD A with toileting - Provider Therapist: Sherron Lawrence License Number: [id number] Speech Therapy - Plan Assessment: Pt continues to demonstrate improvement with intensive OT services, pt displaying increasing standing tolerance with LLE prosthesis in standing frame. Pt requires continued inpatient rehabiliation to address independence with ADLs, functional mobility, in order to return to home environment Recreational Therapy - Participation Participation: Participates in Individual and/or Group Sessions, Monitors His/ Her Own Leisure Time - Attendance Attendance: 3-5 times per week - Activities Leisure Activities: Television - Socialization Level of Socialization: Initiates/interacts freely with care givers and peer, Initiates/interacts with caregivers but not with peer - Diversional Time Diversional Time: television, word searches - Assessment Assessment/Plan: Pt continues to demonstrate improvement with intensive OT services, pt displaying increasing standing tolerance with LLE prosthesis in standing frame. Pt requires continued inpatient rehabiliation to address independence with ADLs, functional mobility, in order to return to home environment - Provider Therapist: Keren Hair, BREAKER UNIT ASSEMBLER #[id number] Nutrition - Current Diet Current Diet/ Supplement/ Feedings: Renal dialysis 2 gram Na 2 gram K+ 80 gram protein nepro 8 ounces 1 per day - Appetite Percent Meal Consumed: 75-100% - Comments Comments: Safety fall contact isolation skin care wound care - Assessment/Goals/Time Frame Assessment/Goals/Time Frame: wound care on antibiotic therapy during dialysis days M W F - Provider Provider: Muriel Dale RD Case Management - Psychosocial Assessment Support Systems: Lucia Leo (sibling)- [phone]. Sandra Leo (mother)- [phone] Psychological Interventions/Needs: Patient is alert and oriented x3, cooperative and motivated for therapy Discharge Concerns: Patient min-modA for all functional moblity. Currently on wound vac for R stump Patient/Family Meeting: CM met with patient and rehab team Intervention/Goal/Outcome:: 1. PLAN: [facility]- list to be provided to patient. 2. discharge date for 03/13/2017 and plan for [facility] patient requesting Darling Peter to send referral - Discharge Plan Discharge Plan: Subacute care - Provider Provider: MARYBETH Lenz, MINE SAFETY ENGINEER License Number: [id number] Rehabilitation Plan - Discharge Plan Estimated Date of Discharge: 03/13/17 Discharge to: Subacute
--- NOTE | 2017-03-11 16:42 | CP.PCM.PN ---
Subjective - Date & Time of Evaluation Date of Evaluation: 03/11/17 Time of Evaluation: 16:40 - Subjective Subjective: Patient seen in the room denies pain or SOB continues to work hard in therapies discussed with her PMD at length and the wound is improving nicely with the wound vac, but given patella wound is far away from any chance of using a prosthesis yet. set for [facility] Objective - Vital Signs/Intake and Output Vital Signs (last 24 hours): Temp Pulse Resp BP Pulse Ox 96.9 F L 101 H 19 150/49 L 97 03/11/17 09:00 03/11/17 09:00 03/11/17 09:00 03/11/17 09:00 03/11/17 08:38 Intake and Output: 03/11/17 03/11/17 06:59 18:59 Intake Total 540 Balance 540 - Medications Medications: Current Medications Acetaminophen (Tylenol 325mg Tab) 650 mg PO Q4 PRN PRN Reason: Pain, Mild (1-3) Acetaminophen (Tylenol 325mg Tab) 325 mg PO Q4 PRN PRN Reason: Fever >100.4 F Apixaban (Eliquis) 5 mg PO BID [facility] PRN Reason: Protocol Last Admin: 03/11/17 08:28 Dose: 5 mg Aspirin (Ecotrin) 81 mg PO DAILY [facility] Last Admin: 03/11/17 08:29 Dose: 81 mg Atorvastatin Calcium (Lipitor) 40 mg PO HS [facility] Last Admin: 03/10/17 21:52 Dose: 40 mg Calcitriol (Rocaltrol) 0.25 mcg PO DAILY [facility] Last Admin: 03/11/17 08:29 Dose: 0.25 mcg Calcium Carbonate (Oscal) 500 mg PO BID [facility] Last Admin: 03/11/17 08:29 Dose: 500 mg Collagenase (Santyl) 1 applic TOP 0600 [facility] Last Admin: 03/11/17 07:02 Dose: 1 applic Docusate Sodium (Colace) 100 mg PO BID [facility] Last Admin: 03/11/17 08:28 Dose: 100 mg Epoetin Tha (Procrit) 4,000 unit IV MWF@1630 [facility] Ergocalciferol (Drisdol 50,000 Intl Units Cap) 1 cap PO Q7D [facility] Last Admin: 03/05/17 08:22 Dose: 1 cap Fluconazole (Diflucan) 100 mg PO DAILY [facility] PRN Reason: Protocol Last Admin: 03/11/17 08:28 Dose: 100 mg Fluticasone Propionate (Flonase) 1 spr ALLAN BID PRN PRN Reason: Dry nasal passages Last Admin: 03/10/17 22:03 Dose: 1 spr Gabapentin (Neurontin) 300 mg PO TID [facility] Last Admin: 03/11/17 12:19 Dose: 300 mg Hydromorphone HCl (Dilaudid) 2 mg PO Q4 PRN PRN Reason: Pain scale 4-10 Last Admin: 03/11/17 13:14 Dose: 2 mg Vancomycin HCl 250 mg/ Sodium (Chloride) 100 mls @ 100 mls/hr IVPB MWF@2000 [facility] PRN Reason: Protocol Last Admin: 03/10/17 22:53 Dose: 100 mls/hr Sodium Chloride (Sodium Chloride 0.9%) 250 mls @ 10 mls/hr IV .Q24H [facility] Last Admin: 03/10/17 21:51 Dose: 10 mls/hr Gentamicin Sulfate 40 mg/ (Sodium Chloride) 101 mls @ 84.167 mls/hr IVPB MWF@ 2000 [facility] PRN Reason: Protocol Last Admin: 03/10/17 21:50 Dose: 84.167 mls/hr Ceftazidime/Avibactam 0.94 gm/ (Sodium Chloride) 100 mls @ 100 mls/hr IVPB MWF@ 2000 [facility] PRN Reason: Protocol Last Admin: 03/10/17 20:01 Dose: 100 mls/hr Lactobacillus Acidophilus (Bacid Acidophilus) 1 cap PO BID [facility] Last Admin: 03/11/17 08:24 Dose: 1 cap Lamotrigine (Lamictal) 50 mg PO Q12 [facility] Last Admin: 03/11/17 08:27 Dose: 50 mg Lamotrigine (Lamictal) 100 mg PO Q12 [facility] Last Admin: 03/11/17 08:27 Dose: 100 mg Metoprolol Tartrate (Lopressor) 25 mg PO Q12 [facility] Last Admin: 03/11/17 08:32 Dose: 25 mg Ondansetron HCl (Zofran Inj) 4 mg IVP Q4 PRN PRN Reason: Nausea/Vomiting Pantoprazole Sodium (Protonix Ec Tab) 40 mg PO DAILY [facility] Last Admin: 03/11/17 08:30 Dose: 40 mg Polyethylene Glycol (Miralax) 17 gm PO DAILY@2200 [facility] Last Admin: 03/10/17 21:55 Dose: 17 gm Repaglinide (Prandin) 1 mg PO ACTID [facility] Last Admin: 03/11/17 12:19 Dose: 1 mg Sennosides (Senokot Tab) 17.2 mg PO HS [facility] Last Admin: 03/10/17 21:57 Dose: 17.2 mg Sevelamer HCl (Renagel) 1,600 mg PO TID [facility] Last Admin: 03/11/17 12:19 Dose: 1,600 mg Simethicone (Mylicon Chew Tab) 80 mg PO TID [facility] Last Admin: 03/11/17 12:20 Dose: 80 mg Vitamin B Complex/Vit C/Folic Acid (Nephro-Ajay) 1 tab PO DAILY [facility] Last Admin: 03/11/17 08:32 Dose: 1 tab - Labs Labs: 03/10/17 15:21 03/10/17 15:21
[2017-03-11] MEDS: Sodium Chloride 0.9% 250 ML IV SCH (19:59)
[2017-03-11] MEDS ORDERED: Sodium Chloride 0.9% 500 ML IV SCH (20:00)
[2017-03-11] MEDS: POLYETHYLENE GLYCOL 3350 17 GM/Dose PACKET PO SCH (21:03)
[2017-03-12] MEDS: Santyl Collagenase OINTMENT TOP SCH (06:05)
[2017-03-12] MEDS: Lactobacillus Acidophilus 500 MU Cap PO SCH ×2 (08:29→21:38)
[2017-03-12] MEDS: Ergocalciferol 50,000 Intl Units Cap PO SCH (08:32)
[2017-03-12] MEDS: Multivitamin Vitamin B Complex (Nephro-Vite) Tab PO SCH (08:34)
[2017-03-12] MEDS: Simethicone 80 mg Chewtab PO SCH ×3 (08:34→21:39)
[2017-03-12] MEDS: Pantoprazole 40 mg EC Tab PO SCH (08:35)
--- NOTE | 2017-03-12 11:42 | CP.PCM.PN ---
Subjective - Date & Time of Evaluation Date of Evaluation: 03/12/17 Time of Evaluation: 11:39 - Subjective Subjective: Patient seen at the acute rehabilitation receiving session physiotherapy Patient feeling good no nausea no vomiting Gretel is in good spirit Objective - Vital Signs/Intake and Output Vital Signs (last 24 hours): Temp Pulse Resp BP Pulse Ox 98.9 F 99 H 19 149/97 H 96 03/12/17 08:42 03/12/17 08:42 03/12/17 08:42 03/12/17 08:42 03/12/17 08:42 Intake and Output: 03/12/17 03/12/17 06:59 18:59 Intake Total 360 Balance 360 - Medications Medications: Current Medications Acetaminophen (Tylenol 325mg Tab) 650 mg PO Q4 PRN PRN Reason: Pain, Mild (1-3) Acetaminophen (Tylenol 325mg Tab) 325 mg PO Q4 PRN PRN Reason: Fever >100.4 F Apixaban (Eliquis) 5 mg PO BID [facility] PRN Reason: Protocol Last Admin: 03/12/17 08:33 Dose: 5 mg Aspirin (Ecotrin) 81 mg PO DAILY [facility] Last Admin: 03/12/17 08:32 Dose: 81 mg Atorvastatin Calcium (Lipitor) 40 mg PO HS [facility] Last Admin: 03/11/17 21:03 Dose: 40 mg Calcitriol (Rocaltrol) 0.25 mcg PO DAILY [facility] Last Admin: 03/12/17 08:36 Dose: 0.25 mcg Calcium Carbonate (Oscal) 500 mg PO BID [facility] Last Admin: 03/12/17 08:35 Dose: 500 mg Collagenase (Santyl) 1 applic TOP 0600 [facility] Last Admin: 03/12/17 06:05 Dose: 1 applic Docusate Sodium (Colace) 100 mg PO BID [facility] Last Admin: 03/12/17 08:30 Dose: 100 mg Epoetin Tha (Procrit) 4,000 unit IV MWF@1630 [facility] Ergocalciferol (Drisdol 50,000 Intl Units Cap) 1 cap PO Q7D [facility] Last Admin: 03/12/17 08:32 Dose: 1 cap Fluconazole (Diflucan) 100 mg PO DAILY [facility] PRN Reason: Protocol Last Admin: 03/12/17 08:30 Dose: 100 mg Fluticasone Propionate (Flonase) 1 spr ALLAN BID PRN PRN Reason: Dry nasal passages Last Admin: 03/10/17 22:03 Dose: 1 spr Gabapentin (Neurontin) 300 mg PO TID [facility] Last Admin: 03/12/17 08:35 Dose: 300 mg Hydromorphone HCl (Dilaudid) 2 mg PO Q4 PRN PRN Reason: Pain scale 4-10 Last Admin: 03/12/17 08:30 Dose: 2 mg Vancomycin HCl 250 mg/ Sodium (Chloride) 100 mls @ 100 mls/hr IVPB MWF@2000 [facility] PRN Reason: Protocol Last Admin: 03/10/17 22:53 Dose: 100 mls/hr Sodium Chloride (Sodium Chloride 0.9%) 250 mls @ 10 mls/hr IV .Q24H [facility] Last Admin: 03/11/17 19:59 Dose: Not Given Gentamicin Sulfate 40 mg/ (Sodium Chloride) 101 mls @ 84.167 mls/hr IVPB MWF@ 2000 [facility] PRN Reason: Protocol Last Admin: 03/10/17 21:50 Dose: 84.167 mls/hr Ceftazidime/Avibactam 0.94 gm/ (Sodium Chloride) 100 mls @ 100 mls/hr IVPB MWF@ 2000 [facility] PRN Reason: Protocol Last Admin: 03/10/17 20:01 Dose: 100 mls/hr Sodium Chloride (Sodium Chloride 0.9%) 500 mls @ 10 mls/hr IV .Q24H [facility] Last Admin: 03/11/17 19:48 Dose: 10 mls/hr Lactobacillus Acidophilus (Bacid Acidophilus) 1 cap PO BID [facility] Last Admin: 03/12/17 08:29 Dose: 1 cap Lamotrigine (Lamictal) 50 mg PO Q12 [facility] Last Admin: 03/12/17 08:33 Dose: 50 mg Lamotrigine (Lamictal) 100 mg PO Q12 [facility] Last Admin: 03/12/17 08:34 Dose: 100 mg Metoprolol Tartrate (Lopressor) 25 mg PO Q12 [facility] Last Admin: 03/12/17 08:34 Dose: 25 mg Ondansetron HCl (Zofran Inj) 4 mg IVP Q4 PRN PRN Reason: Nausea/Vomiting Pantoprazole Sodium (Protonix Ec Tab) 40 mg PO DAILY [facility] Last Admin: 03/12/17 08:35 Dose: 40 mg Polyethylene Glycol (Miralax) 17 gm PO DAILY@2200 [facility] Last Admin: 03/11/17 21:03 Dose: 17 gm Repaglinide (Prandin) 1 mg PO ACTID [facility] Last Admin: 03/12/17 08:35 Dose: 1 mg Sennosides (Senokot Tab) 17.2 mg PO HS [facility] Last Admin: 03/11/17 21:03 Dose: 17.2 mg Sevelamer HCl (Renagel) 1,600 mg PO TID [facility] Last Admin: 03/12/17 08:36 Dose: 1,600 mg Simethicone (Mylicon Chew Tab) 80 mg PO TID [facility] Last Admin: 03/12/17 08:34 Dose: 80 mg Vitamin B Complex/Vit C/Folic Acid (Nephro-Ajay) 1 tab PO DAILY [facility] Last Admin: 03/12/17 08:34 Dose: 1 tab - Labs Labs: 03/10/17 15:21 03/10/17 15:21 - Constitutional Appears: No Acute Distress - ENT Exam ENT Exam: Mucous Membranes Moist - Respiratory Exam Respiratory Exam: NORMAL BREATHING PATTERN. absent: Chest Wall Tenderness - Cardiovascular Exam Cardiovascular Exam: REGULAR RHYTHM. absent: JVD, Rubs - GI/Abdominal Exam GI & Abdominal Exam: Soft, Normal Bowel Sounds - Extremities Exam Extremities Exam: absent: Calf Tenderness - Back Exam Back Exam: absent: CVA tenderness (L), CVA tenderness (R) - Neurological Exam Neurological Exam: Alert Assessment and Plan (1) CKD (chronic kidney disease) stage V requiring chronic dialysis Assessment & Plan: End stage renal disease on maintenance dialysis MWF Patient to start dialysis shortly after completion this session Anemia has been improving therefore we cut down EPO from 2650-0294 unit Hyperphosphatemia has been controlled Blood pressure has been controlled And the rest of the problem as previously noted Status: Acute (2) 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
[2017-03-12] MEDS: Sodium Chloride 0.9% 500 ML IV SCH (14:02)
--- NOTE | 2017-03-12 16:07 | PN ---
DATE: ENDOCRINOLOGY FOLLOWUP NOTE LOCATION: Room 625. SUBJECTIVE: This is a 46-year-old female with recent uncontrolled type 2 diabetes, now taken off all insulin therapy and doing very well on just a very low-dose oral hypoglycemic drug therapy as given. Her glucose levels are fluctuating and have ranged from 91 to 183 mg/dL. early this morning as noted. So, at this time, we will continue the same low-dose correction scale using regular insulin as ordered. We will also continue the low-dose oral hypoglycemic drug therapy as given with Prandin at 1 mg p.o. t.i.d. before meals as ordered. We will titrate incrementally as indicated to optimize metabolic control. We will follow. Irene Ambrose MD
[2017-03-12] MEDS: Epoetin Alfa 4000 UNIT/ML Inj IV SCH (17:14)
[2017-03-12] MEDS: Vancomycin 250 MG in Sodium Chloride 0.9% 100 ML IVPB SCH (19:24)
[2017-03-12] MEDS: Sodium Chloride 0.9% 250 ML IV SCH (20:34)
[2017-03-12] MEDS: POLYETHYLENE GLYCOL 3350 17 GM/Dose PACKET PO SCH (21:42)
[2017-03-13] MEDS: Santyl Collagenase OINTMENT TOP SCH (06:15)
[2017-03-13] MEDS: Lactobacillus Acidophilus 500 MU Cap PO SCH ×2 (08:20→17:19)
[2017-03-13] MEDS: Simethicone 80 mg Chewtab PO SCH ×3 (08:28→17:19)
[2017-03-13] MEDS: Multivitamin Vitamin B Complex (Nephro-Vite) Tab PO SCH (08:28)
[2017-03-13] MEDS: Pantoprazole 40 mg EC Tab PO SCH (08:29)
[2017-03-13] MEDS: Sodium Chloride 0.9% 500 ML IV SCH (13:00)
--- NOTE | 2017-03-13 15:18 | CP.PCM.PN ---
Subjective - Date & Time of Evaluation Date of Evaluation: 03/13/17 Time of Evaluation: 15:16 - Subjective Subjective: Patient continues on 3 IV and 1 po antibiotic for osteomyelitis. The right BK wound vac was changed today. The wound continues to granulate in nicely. The right patella is also healing well with daily Santyl dressings after "scrubbing " away necrotic tissues with saline gauze. The note from wound care nurse Jessica Terry follows: Patient seen in wheelchair. Wound vac dressing removed. 100% granulation of wound base. Smaller in sixe- 6.5 cm wide x 2.7 cm long. Vac reapplied and set to previous settings. 125 Hg suction, low continuous. Will change on Friday, Mar.17. Right knee dressing removed. Wound base 85% granulation and 15% slough. Cleansed with NS, santyl and dressing applied. Continue present treatment. Patient's glucoses are at or just around 100 on Prandin 1 mg tid zc. Patient does complain of right hand pain - burning, intense, involving carla fingers 1,2,4 (absent finer 3). She could hardly pick up attendant a fork to eat. Finally both gabapentin and Dilaudid helped. Radial pulse is weak but present , hand and fingers are warm, and there are no open lesions. This pain may be the result of her strenuous efforts at rehab. It is almost gone now. Objective - Vital Signs/Intake and Output Vital Signs (last 24 hours): Temp Pulse Resp BP Pulse Ox 97.9 F 95 H 21 129/68 100 03/13/17 08:37 03/13/17 08:37 03/13/17 08:37 03/13/17 08:37 03/13/17 08:37 Intake and Output: 03/13/17 03/13/17 06:59 18:59 Intake Total 1760 Balance 1760 - Medications Medications: Current Medications Acetaminophen (Tylenol 325mg Tab) 650 mg PO Q4 PRN PRN Reason: Pain, Mild (1-3) Acetaminophen (Tylenol 325mg Tab) 325 mg PO Q4 PRN PRN Reason: Fever >100.4 F Apixaban (Eliquis) 5 mg PO BID [facility] PRN Reason: Protocol Last Admin: 03/13/17 08:26 Dose: 5 mg Aspirin (Ecotrin) 81 mg PO DAILY [facility] Last Admin: 03/13/17 08:26 Dose: 81 mg Atorvastatin Calcium (Lipitor) 40 mg PO HS [facility] Last Admin: 03/12/17 21:42 Dose: 40 mg Calcitriol (Rocaltrol) 0.25 mcg PO DAILY [facility] Last Admin: 03/13/17 08:29 Dose: 0.25 mcg Calcium Carbonate (Oscal) 500 mg PO BID [facility] Last Admin: 03/13/17 08:29 Dose: 500 mg Collagenase (Santyl) 1 applic TOP 0600 [facility] Last Admin: 03/13/17 06:15 Dose: 1 applic Docusate Sodium (Colace) 100 mg PO BID [facility] Last Admin: 03/13/17 08:21 Dose: 100 mg Epoetin Tha (Procrit) 4,000 unit IV MWF@1630 [facility] Last Admin: 03/12/17 17:14 Dose: 4,000 unit Ergocalciferol (Drisdol 50,000 Intl Units Cap) 1 cap PO Q7D [facility] Last Admin: 03/12/17 08:32 Dose: 1 cap Fluconazole (Diflucan) 100 mg PO DAILY [facility] PRN Reason: Protocol Last Admin: 03/13/17 08:26 Dose: 100 mg Fluticasone Propionate (Flonase) 1 spr ALLAN BID PRN PRN Reason: Dry nasal passages Last Admin: 03/10/17 22:03 Dose: 1 spr Gabapentin (Neurontin) 300 mg PO TID [facility] Last Admin: 03/13/17 12:57 Dose: 300 mg Hydromorphone HCl (Dilaudid) 2 mg PO Q4 PRN PRN Reason: Pain scale 4-10 Last Admin: 03/13/17 12:56 Dose: 2 mg Vancomycin HCl 250 mg/ Sodium (Chloride) 100 mls @ 100 mls/hr IVPB MWF@2000 [facility] PRN Reason: Protocol Last Admin: 03/12/17 19:24 Dose: 100 mls/hr Sodium Chloride (Sodium Chloride 0.9%) 250 mls @ 10 mls/hr IV .Q24H [facility] Last Admin: 03/12/17 20:34 Dose: Not Given Gentamicin Sulfate 40 mg/ (Sodium Chloride) 101 mls @ 84.167 mls/hr IVPB MWF@ 2000 [facility] PRN Reason: Protocol Last Admin: 03/12/17 19:32 Dose: 84.167 mls/hr Ceftazidime/Avibactam 0.94 gm/ (Sodium Chloride) 100 mls @ 100 mls/hr IVPB MWF@ 2000 [facility] PRN Reason: Protocol Last Admin: 03/12/17 20:36 Dose: 100 mls/hr Lactobacillus Acidophilus (Bacid Acidophilus) 1 cap PO BID [facility] Last Admin: 03/13/17 08:20 Dose: 1 cap Lamotrigine (Lamictal) 50 mg PO Q12 [facility] Last Admin: 03/13/17 08:27 Dose: 50 mg Lamotrigine (Lamictal) 100 mg PO Q12 [facility] Last Admin: 03/13/17 08:27 Dose: 100 mg Metoprolol Tartrate (Lopressor) 25 mg PO Q12 [facility] Last Admin: 03/13/17 08:28 Dose: 25 mg Ondansetron HCl (Zofran Inj) 4 mg IVP Q4 PRN PRN Reason: Nausea/Vomiting Pantoprazole Sodium (Protonix Ec Tab) 40 mg PO DAILY [facility] Last Admin: 03/13/17 08:29 Dose: 40 mg Polyethylene Glycol (Miralax) 17 gm PO DAILY@2200 [facility] Last Admin: 03/12/17 21:42 Dose: 17 gm Repaglinide (Prandin) 1 mg PO ACTID [facility] Last Admin: 03/13/17 12:57 Dose: 1 mg Sennosides (Senokot Tab) 17.2 mg PO HS [facility] Last Admin: 03/12/17 21:42 Dose: 17.2 mg Sevelamer HCl (Renagel) 1,600 mg PO TID [facility] Last Admin: 03/13/17 12:58 Dose: 1,600 mg Simethicone (Mylicon Chew Tab) 80 mg PO TID [facility] Last Admin: 03/13/17 12:57 Dose: 80 mg Vitamin B Complex/Vit C/Folic Acid (Nephro-Ajay) 1 tab PO DAILY [facility] Last Admin: 03/13/17 08:28 Dose: 1 tab - Labs Labs: 03/10/17 15:21 03/10/17 15:21 - Constitutional Appears: No Acute Distress - Head Exam Head Exam: NORMAL INSPECTION - Eye Exam Eye Exam: Normal appearance - ENT Exam ENT Exam: Mucous Membranes Moist - Neck Exam Neck Exam: Normal Inspection - Respiratory Exam Respiratory Exam: Clear to Ausculation Bilateral, NORMAL BREATHING PATTERN - Cardiovascular Exam Cardiovascular Exam: REGULAR RHYTHM, +S1, +S2 - GI/Abdominal Exam GI & Abdominal Exam: Soft - Extremities Exam Additional comments: Wound vac and patellar dressing RLE are intact. See Subjective. L femoral PICC line intact. - Back Exam Back Exam: NORMAL INSPECTION - Neurological Exam Neurological Exam: Alert, CN II-XII Intact, Oriented x3 - Psychiatric Exam Psychiatric exam: Normal Affect, Normal Mood - Skin Skin Exam: Dry, Normal Color, Warm Assessment and Plan (1) Elevated liver enzymes Assessment & Plan: Must monitor. Status: Acute (2) Status post below knee amputation of right lower extremity Assessment & Plan: Making nice progress in rehab. Status: Acute (3) Infection of amputation stump of right lower extremity Assessment & Plan: Needs continued IV antibiotic and po antibiotic therapy and intensive wound care. Status: Acute (4) DM type 2 (diabetes mellitus, type 2) Assessment & Plan: Controlled. Status: Chronic (5) ESRD (end stage renal disease) on dialysis Status: Chronic (6) Diabetic retinopathy Assessment & Plan: Follow up appt with Dr. Hernandez is scheduled for Mar 25 at his office. Status: Acute (7) Seizure disorder Assessment & Plan: Continues on Lamictal. Status: Acute (8) Gallstones without obstruction of gallbladder Status: Acute (9) Coagulopathy Assessment & Plan: Must continue Eliquis and aspirin indefinitely. 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 Status: Acute (11) Peripheral arterial occlusive disease Status: Chronic (12) Hyperlipidemia Status: Chronic (13) Supraventricular tachycardia Status: Acute
--- NOTE | 2017-03-13 17:18 | PN ---
DATE: ENDOCRINOLOGY FOLLOWUP NOTE LOCATION: Room 625, rehab. SUBJECTIVE: This is a 46-year-old female with recent uncontrolled type 2 diabetes, currently undergoing acute rehabilitation therapy following a right below-knee amputation and a previously done left below-knee amputation at this time. Her glycemic levels are fluctuating, but much improved at this time and have ranged from 94 to 106 mg/dL. So, at this time, we will continue the same low-dose oral hypoglycemic drug therapy as given with Prandin given as 1 mg p.o. t.i.d. before meals as ordered. We will titrate incremental as indicated to optimize metabolic control. We will also obtain serial chemistries and supplement accordingly as needed. We will follow. Irene Ambrose MD
[2017-03-13] MEDS: Sodium Chloride 0.9% 250 ML IV SCH (19:49)
[2017-03-13] MEDS: POLYETHYLENE GLYCOL 3350 17 GM/Dose PACKET PO SCH (21:14)
[2017-03-14] MEDS: Santyl Collagenase OINTMENT TOP SCH (06:10)
[2017-03-14] MEDS: Multivitamin Vitamin B Complex (Nephro-Vite) Tab PO SCH (08:28)
[2017-03-14] MEDS: Simethicone 80 mg Chewtab PO SCH ×3 (08:28→16:55)
[2017-03-14] MEDS: Lactobacillus Acidophilus 500 MU Cap PO SCH ×2 (08:34→16:58)
[2017-03-14] MEDS: Pantoprazole 40 mg EC Tab PO SCH (09:00)
--- NOTE | 2017-03-14 11:18 | CP.PCM.PN ---
Subjective - Date & Time of Evaluation Date of Evaluation: 03/14/17 Time of Evaluation: 11:15 - Subjective Subjective: Patient was seen in the acute rehabilitation. Patient receiving therapy. Chest pain no shortness of breath no difficulty breathing. Appetite good. Objective - Vital Signs/Intake and Output Vital Signs (last 24 hours): Temp Pulse Resp BP Pulse Ox 96.4 F L 94 H 20 140/80 95 03/14/17 08:19 03/14/17 08:30 03/14/17 08:19 03/14/17 08:30 03/14/17 08:19 Intake and Output: 03/14/17 03/14/17 06:59 18:59 Intake Total 360 Balance 360 - Medications Medications: Current Medications Acetaminophen (Tylenol 325mg Tab) 650 mg PO Q4 PRN PRN Reason: Pain, Mild (1-3) Acetaminophen (Tylenol 325mg Tab) 325 mg PO Q4 PRN PRN Reason: Fever >100.4 F Apixaban (Eliquis) 5 mg PO BID [facility] PRN Reason: Protocol Last Admin: 03/14/17 08:28 Dose: 5 mg Aspirin (Ecotrin) 81 mg PO DAILY [facility] Last Admin: 03/14/17 08:28 Dose: 81 mg Atorvastatin Calcium (Lipitor) 40 mg PO HS [facility] Last Admin: 03/13/17 21:13 Dose: 40 mg Calcitriol (Rocaltrol) 0.25 mcg PO DAILY [facility] Last Admin: 03/14/17 08:29 Dose: 0.25 mcg Calcium Carbonate (Oscal) 500 mg PO BID [facility] Last Admin: 03/14/17 08:28 Dose: 500 mg Collagenase (Santyl) 1 applic TOP 0600 [facility] Last Admin: 03/14/17 06:10 Dose: 1 applic Docusate Sodium (Colace) 100 mg PO BID [facility] Last Admin: 03/13/17 17:20 Dose: 100 mg Epoetin Tha (Procrit) 4,000 unit IV MWF@1630 [facility] Last Admin: 03/12/17 17:14 Dose: 4,000 unit Ergocalciferol (Drisdol 50,000 Intl Units Cap) 1 cap PO Q7D [facility] Last Admin: 03/12/17 08:32 Dose: 1 cap Fluconazole (Diflucan) 100 mg PO DAILY [facility] PRN Reason: Protocol Last Admin: 03/13/17 08:26 Dose: 100 mg Fluticasone Propionate (Flonase) 1 spr ALLAN BID PRN PRN Reason: Dry nasal passages Last Admin: 03/10/17 22:03 Dose: 1 spr Gabapentin (Neurontin) 300 mg PO TID [facility] Last Admin: 03/13/17 17:20 Dose: 300 mg Hydromorphone HCl (Dilaudid) 2 mg PO Q4 PRN PRN Reason: Pain scale 4-10 Last Admin: 03/14/17 08:34 Dose: 2 mg Vancomycin HCl 250 mg/ Sodium (Chloride) 100 mls @ 100 mls/hr IVPB MWF@2000 [facility] PRN Reason: Protocol Last Admin: 03/12/17 19:24 Dose: 100 mls/hr Sodium Chloride (Sodium Chloride 0.9%) 250 mls @ 10 mls/hr IV .Q24H [facility] Stop: 03/17/17 20:46 Last Admin: 03/13/17 19:49 Dose: 10 mls/hr Gentamicin Sulfate 40 mg/ (Sodium Chloride) 101 mls @ 84.167 mls/hr IVPB MWF@ 2000 [facility] PRN Reason: Protocol Last Admin: 03/12/17 19:32 Dose: 84.167 mls/hr Ceftazidime/Avibactam 0.94 gm/ (Sodium Chloride) 100 mls @ 100 mls/hr IVPB MWF@ 2000 [facility] PRN Reason: Protocol Last Admin: 03/12/17 20:36 Dose: 100 mls/hr Lactobacillus Acidophilus (Bacid Acidophilus) 1 cap PO BID [facility] Last Admin: 03/14/17 08:34 Dose: 1 cap Lamotrigine (Lamictal) 50 mg PO Q12 [facility] Last Admin: 03/14/17 08:30 Dose: 50 mg Lamotrigine (Lamictal) 100 mg PO Q12 [facility] Last Admin: 03/14/17 08:29 Dose: 100 mg Metoprolol Tartrate (Lopressor) 25 mg PO Q12 [facility] Last Admin: 03/14/17 08:30 Dose: 25 mg Ondansetron HCl (Zofran Inj) 4 mg IVP Q4 PRN PRN Reason: Nausea/Vomiting Pantoprazole Sodium (Protonix Ec Tab) 40 mg PO DAILY [facility] Last Admin: 03/13/17 08:29 Dose: 40 mg Polyethylene Glycol (Miralax) 17 gm PO DAILY@2200 [facility] Last Admin: 03/13/17 21:14 Dose: 17 gm Repaglinide (Prandin) 1 mg PO ACTID [facility] Last Admin: 03/14/17 08:31 Dose: 1 mg Sennosides (Senokot Tab) 17.2 mg PO HS [facility] Last Admin: 03/13/17 21:13 Dose: 17.2 mg Sevelamer HCl (Renagel) 1,600 mg PO TID [facility] Last Admin: 03/14/17 08:28 Dose: 1,600 mg Simethicone (Mylicon Chew Tab) 80 mg PO TID [facility] Last Admin: 03/14/17 08:28 Dose: 80 mg Vitamin B Complex/Vit C/Folic Acid (Nephro-Ajay) 1 tab PO DAILY [facility] Last Admin: 03/14/17 08:28 Dose: 1 tab - Labs Labs: 03/10/17 15:21 03/10/17 15:21 - Constitutional Appears: No Acute Distress - Eye Exam Eye Exam: Conjunctival injection - ENT Exam ENT Exam: Mucous Membranes Moist - Respiratory Exam Respiratory Exam: absent: Chest Wall Tenderness - Cardiovascular Exam Cardiovascular Exam: REGULAR RHYTHM. absent: JVD, Rubs - GI/Abdominal Exam GI & Abdominal Exam: Soft, Normal Bowel Sounds - Back Exam Back Exam: absent: CVA tenderness (L), CVA tenderness (R) - Neurological Exam Neurological Exam: Alert Assessment and Plan (1) CKD (chronic kidney disease) stage V requiring chronic dialysis Assessment & Plan: End stage renal disease on maintenance hemodialysis MWF. Patient scheduled to have dialysis in the next half an hour or so. I discussed the order with the dialysis nurse Ultrafiltration 3500 mL Potassium bath 2 mEq Bicarbonate 34 Sodium bath 138. Anemia patient is stable was hemoglobin 10.5 Phosphorus and PTH within goal. 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
--- NOTE | 2017-03-14 13:57 | PN ---
ENDO FOLLOWUP NOTE LOCATION: 625. SUBJECTIVE: This is a 66-year-old female with recent uncontrolled type 2 diabetes, currently with optimal control on just a low dose oral hypoglycemic therapy and is now being followed closely for metabolic management. Her glucose values are ranging from 94-104 and 145 mg/dL. Her latest chemistry showed a BUN of 92, sodium 140, potassium 5.4, chloride 100, CO2 of 22, glucose 178, and creatinine 8.4. PLAN: So at this time, we will continue the low dose Prandin given as 1 mg p.o. t.i.d. before meals as ordered. We will titrate incremental as indicated to optimize metabolic control. We will follow and advise accordingly. Irene Ambrose MD
[2017-03-14] MEDS: Epoetin Alfa 4000 UNIT/ML Inj IV SCH (16:00)
--- NOTE | 2017-03-14 16:31 | CP.PCM.PN ---
Subjective - Date & Time of Evaluation Date of Evaluation: 03/14/17 Time of Evaluation: 16:28 - Subjective Subjective: Patient seen in the room finishing up with HD vac is draining well no fever will have extension of stay continue current care Objective - Vital Signs/Intake and Output Vital Signs (last 24 hours): Temp Pulse Resp BP Pulse Ox 96.4 F L 94 H 20 140/80 95 03/14/17 08:19 03/14/17 08:30 03/14/17 08:19 03/14/17 08:30 03/14/17 08:19 Intake and Output: 03/14/17 03/14/17 06:59 18:59 Intake Total 360 Balance 360 - Medications Medications: Current Medications Acetaminophen (Tylenol 325mg Tab) 650 mg PO Q4 PRN PRN Reason: Pain, Mild (1-3) Acetaminophen (Tylenol 325mg Tab) 325 mg PO Q4 PRN PRN Reason: Fever >100.4 F Apixaban (Eliquis) 5 mg PO BID [facility] PRN Reason: Protocol Last Admin: 03/14/17 08:28 Dose: 5 mg Aspirin (Ecotrin) 81 mg PO DAILY [facility] Last Admin: 03/14/17 08:28 Dose: 81 mg Atorvastatin Calcium (Lipitor) 40 mg PO HS [facility] Last Admin: 03/13/17 21:13 Dose: 40 mg Calcitriol (Rocaltrol) 0.25 mcg PO DAILY [facility] Last Admin: 03/14/17 08:29 Dose: 0.25 mcg Calcium Carbonate (Oscal) 500 mg PO BID [facility] Last Admin: 03/14/17 08:28 Dose: 500 mg Collagenase (Santyl) 1 applic TOP 0600 [facility] Last Admin: 03/14/17 06:10 Dose: 1 applic Docusate Sodium (Colace) 100 mg PO BID [facility] Last Admin: 03/14/17 09:00 Dose: 100 mg Epoetin Tha (Procrit) 4,000 unit IV MWF@1630 [facility] Last Admin: 03/14/17 16:00 Dose: 4,000 unit Ergocalciferol (Drisdol 50,000 Intl Units Cap) 1 cap PO Q7D [facility] Last Admin: 03/12/17 08:32 Dose: 1 cap Fluconazole (Diflucan) 100 mg PO DAILY [facility] PRN Reason: Protocol Last Admin: 03/14/17 09:00 Dose: 100 mg Fluticasone Propionate (Flonase) 1 spr ALLAN BID PRN PRN Reason: Dry nasal passages Last Admin: 03/10/17 22:03 Dose: 1 spr Gabapentin (Neurontin) 300 mg PO TID [facility] Last Admin: 03/14/17 12:55 Dose: 300 mg Hydromorphone HCl (Dilaudid) 2 mg PO Q4 PRN PRN Reason: Pain scale 4-10 Last Admin: 03/14/17 12:58 Dose: 2 mg Vancomycin HCl 250 mg/ Sodium (Chloride) 100 mls @ 100 mls/hr IVPB MWF@2000 [facility] PRN Reason: Protocol Last Admin: 03/12/17 19:24 Dose: 100 mls/hr Sodium Chloride (Sodium Chloride 0.9%) 250 mls @ 10 mls/hr IV .Q24H [facility] Stop: 03/17/17 20:46 Last Admin: 03/13/17 19:49 Dose: 10 mls/hr Gentamicin Sulfate 40 mg/ (Sodium Chloride) 101 mls @ 84.167 mls/hr IVPB MWF@ 2000 [facility] PRN Reason: Protocol Last Admin: 03/12/17 19:32 Dose: 84.167 mls/hr Ceftazidime/Avibactam 0.94 gm/ (Sodium Chloride) 100 mls @ 100 mls/hr IVPB MWF@ 2000 [facility] PRN Reason: Protocol Last Admin: 03/12/17 20:36 Dose: 100 mls/hr Lactobacillus Acidophilus (Bacid Acidophilus) 1 cap PO BID [facility] Last Admin: 03/14/17 08:34 Dose: 1 cap Lamotrigine (Lamictal) 50 mg PO Q12 [facility] Last Admin: 03/14/17 08:30 Dose: 50 mg Lamotrigine (Lamictal) 100 mg PO Q12 [facility] Last Admin: 03/14/17 08:29 Dose: 100 mg Metoprolol Tartrate (Lopressor) 25 mg PO Q12 [facility] Last Admin: 03/14/17 08:30 Dose: 25 mg Ondansetron HCl (Zofran Inj) 4 mg IVP Q4 PRN PRN Reason: Nausea/Vomiting Pantoprazole Sodium (Protonix Ec Tab) 40 mg PO DAILY [facility] Last Admin: 03/14/17 09:00 Dose: 40 mg Polyethylene Glycol (Miralax) 17 gm PO DAILY@2200 [facility] Last Admin: 03/13/17 21:14 Dose: 17 gm Repaglinide (Prandin) 1 mg PO ACTID [facility] Last Admin: 03/14/17 12:54 Dose: 1 mg Sennosides (Senokot Tab) 17.2 mg PO HS [facility] Last Admin: 03/13/17 21:13 Dose: 17.2 mg Sevelamer HCl (Renagel) 1,600 mg PO TID [facility] Last Admin: 03/14/17 12:52 Dose: 1,600 mg Simethicone (Mylicon Chew Tab) 80 mg PO TID [facility] Last Admin: 03/14/17 13:03 Dose: 80 mg Vitamin B Complex/Vit C/Folic Acid (Nephro-Ajay) 1 tab PO DAILY [facility] Last Admin: 03/14/17 08:28 Dose: 1 tab - Labs Labs: 03/10/17 15:21 03/10/17 15:21
[2017-03-14] MEDS: Sodium Chloride 0.9% 250 ML IV SCH (20:23)
[2017-03-14] MEDS: Vancomycin 250 MG in Sodium Chloride 0.9% 100 ML IVPB SCH (21:31)
[2017-03-14] MEDS: POLYETHYLENE GLYCOL 3350 17 GM/Dose PACKET PO SCH (21:34)
[2017-03-15] MEDS: Santyl Collagenase OINTMENT TOP SCH (06:47)
[2017-03-15] MEDS: Lactobacillus Acidophilus 500 MU Cap PO SCH ×2 (08:35→17:27)
[2017-03-15] MEDS: Simethicone 80 mg Chewtab PO SCH ×3 (08:36→17:30)
[2017-03-15] MEDS: Multivitamin Vitamin B Complex (Nephro-Vite) Tab PO SCH (08:37)
[2017-03-15] MEDS: Pantoprazole 40 mg EC Tab PO SCH (08:40)
--- NOTE | 2017-03-15 13:10 | PN ---
DATE: ENDOCRINOLOGY FOLLOW UP NOTE LOCATION: Room 625. SUBJECTIVE: This is a 46-year-old female with recent uncontrolled type 2 diabetes, currently doing very well on a low-dose oral hypoglycemic drug regimen as given and is now being followed closely for metabolic management. Her glucose levels have ranged from 135 to 139 mg/dL. Her bedtime glucose was 145 mg/dL. ASSESSMENT AND PLAN: So, at this time, we will continue the same oral hypoglycemic therapy as given, with Prandin given as 1 mg p.o. t.i.d. before meals as ordered. We will titrate incrementally as indicated to optimize metabolic control. We will follow this. Irene Ambrose MD
--- NOTE | 2017-03-15 16:32 | CP.PCM.PN ---
Subjective - Date & Time of Evaluation Date of Evaluation: 03/15/17 Time of Evaluation: 16:31 - Subjective Subjective: Follow up Nephrology Consultation Note Assessment/Plan: End stage renal disease on hemodialysis (MWF) via permacath: no acute need for dialysis today. next HD friday as ordered. continue with Nephrovite 1 tab/day. Anemia: PRBC as needed. On MARTHA as Epogen Hyperphosphatemia: continue with current meds as renagel Secondary hyperparathyroidism with Vit D Deficiency: on calcitriol, Vit D Hypertension controlled Glycemic control, Dialysis consistent diet Further work up/management as per primary team. 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 Dose meds/antibiotics for ESRD status. Avoid fleets enema/magnesium based laxatives. Thanks for allowing me to participate in care of your patient. Will follow patient with you. Please call if any Qs Dr Hernan Andino Office: [phone] Subjective: Noted events overnight. Denies chest pain, palpitation, shortness of breath. Physical Examination: General Appearance: Comfortable, in no acute respiratory distress, co- operative. obese Vitals reviewed and noted as below Lungs: Normal respiratory rate/effort. Breath sounds bilateral equal and clear Heart: Normal rate. s1s2 normal. No rub or gallop. Extremities: s/p Rt BKA, hx of left BKA, has prosthesis. Neurological: Patient is alert, awake and oriented to person, place and time. No focal deficit. Strength bilateral appropriate and equal Skin: Warm and dry. Normal turgor. No rash. Palpitation: Normal elasticity for age Abdomen: Abdomen is soft. Bowel sounds +. There is no abdominal tenderness, no guarding/rigidity or organomegaly. she is obese : kidney or bladder not palpable Access: permacath Labs/imaging reviewed. Past medical history, past surgical history, family history, social history, allergy reviewed Objective - Vital Signs/Intake and Output Vital Signs (last 24 hours): Temp Pulse Resp BP Pulse Ox 97.5 F L 97 H 21 137/56 L 97 03/15/17 10:00 03/15/17 10:00 03/15/17 10:00 03/15/17 10:00 03/15/17 10:00 Intake and Output: 03/15/17 03/15/17 06:59 18:59 Intake Total 320 Balance 320 - Medications Medications: Current Medications Acetaminophen (Tylenol 325mg Tab) 650 mg PO Q4 PRN PRN Reason: Pain, Mild (1-3) Acetaminophen (Tylenol 325mg Tab) 325 mg PO Q4 PRN PRN Reason: Fever >100.4 F Apixaban (Eliquis) 5 mg PO BID [facility] PRN Reason: Protocol Last Admin: 03/15/17 08:37 Dose: 5 mg Aspirin (Ecotrin) 81 mg PO DAILY [facility] Last Admin: 03/15/17 08:38 Dose: 81 mg Atorvastatin Calcium (Lipitor) 40 mg PO HS [facility] Last Admin: 03/14/17 21:34 Dose: 40 mg Calcitriol (Rocaltrol) 0.25 mcg PO DAILY [facility] Last Admin: 03/15/17 08:37 Dose: 0.25 mcg Calcium Carbonate (Oscal) 500 mg PO BID [facility] Last Admin: 03/15/17 08:36 Dose: 500 mg Collagenase (Santyl) 1 applic TOP 0600 [facility] Last Admin: 03/15/17 06:47 Dose: 1 applic Docusate Sodium (Colace) 100 mg PO BID [facility] Last Admin: 03/15/17 08:38 Dose: 100 mg Epoetin Tha (Procrit) 4,000 unit IV MWF@1630 [facility] Last Admin: 03/14/17 16:00 Dose: 4,000 unit Ergocalciferol (Drisdol 50,000 Intl Units Cap) 1 cap PO Q7D [facility] Last Admin: 03/12/17 08:32 Dose: 1 cap Fluconazole (Diflucan) 100 mg PO DAILY [facility] PRN Reason: Protocol Last Admin: 03/15/17 08:36 Dose: 100 mg Fluticasone Propionate (Flonase) 1 spr ALLAN BID PRN PRN Reason: Dry nasal passages Last Admin: 03/10/17 22:03 Dose: 1 spr Gabapentin (Neurontin) 300 mg PO TID [facility] Last Admin: 03/15/17 08:36 Dose: 300 mg Hydromorphone HCl (Dilaudid) 2 mg PO Q4 PRN PRN Reason: Pain scale 4-10 Last Admin: 03/15/17 08:34 Dose: 2 mg Vancomycin HCl 250 mg/ Sodium (Chloride) 100 mls @ 100 mls/hr IVPB MWF@1999 [facility] PRN Reason: Protocol Last Admin: 03/14/17 21:31 Dose: 100 mls/hr Sodium Chloride (Sodium Chloride 0.9%) 250 mls @ 10 mls/hr IV .Q24H [facility] Stop: 03/17/17 20:46 Last Admin: 03/14/17 20:23 Dose: 10 mls/hr Gentamicin Sulfate 40 mg/ (Sodium Chloride) 101 mls @ 84.167 mls/hr IVPB MWF@ 2000 [facility] PRN Reason: Protocol Last Admin: 03/14/17 23:22 Dose: 84.167 mls/hr Ceftazidime/Avibactam 0.94 gm/ (Sodium Chloride) 100 mls @ 100 mls/hr IVPB MWF@ 1999 [facility] PRN Reason: Protocol Last Admin: 03/14/17 20:19 Dose: 100 mls/hr Lactobacillus Acidophilus (Bacid Acidophilus) 1 cap PO BID [facility] Last Admin: 03/15/17 08:35 Dose: 1 cap Lamotrigine (Lamictal) 50 mg PO Q12 [facility] Last Admin: 03/15/17 08:37 Dose: 50 mg Lamotrigine (Lamictal) 100 mg PO Q12 [facility] Last Admin: 03/15/17 08:38 Dose: 100 mg Metoprolol Tartrate (Lopressor) 25 mg PO Q12 [facility] Last Admin: 03/14/17 20:25 Dose: 25 mg Ondansetron HCl (Zofran Inj) 4 mg IVP Q4 PRN PRN Reason: Nausea/Vomiting Pantoprazole Sodium (Protonix Ec Tab) 40 mg PO DAILY [facility] Last Admin: 03/15/17 08:40 Dose: 40 mg Polyethylene Glycol (Miralax) 17 gm PO DAILY@2200 [facility] Last Admin: 03/14/17 21:34 Dose: 17 gm Repaglinide (Prandin) 1 mg PO ACTID [facility] Last Admin: 03/15/17 08:37 Dose: 1 mg Sennosides (Senokot Tab) 17.2 mg PO HS [facility] Last Admin: 03/14/17 21:34 Dose: 17.2 mg Sevelamer HCl (Renagel) 1,600 mg PO TID [facility] Last Admin: 03/15/17 08:35 Dose: 1,600 mg Simethicone (Mylicon Chew Tab) 80 mg PO TID [facility] Last Admin: 03/15/17 08:36 Dose: 80 mg Vitamin B Complex/Vit C/Folic Acid (Nephro-Ajay) 1 tab PO DAILY [facility] Last Admin: 03/15/17 08:37 Dose: 1 tab - Labs Labs: 03/10/17 15:21 03/10/17 15:21
--- NOTE | 2017-03-15 19:21 | CP.PCM.PN ---
Subjective - Date & Time of Evaluation Date of Evaluation: 03/15/17 Time of Evaluation: 19:18 - Subjective Subjective: I D NOTE CHART REVIEWED ,ONGOING DISCUSSION C IMPROVING,NEED TO CONTINUE PRESENT REGIME OF IV ANTIBIOTICS Objective - Vital Signs/Intake and Output Vital Signs (last 24 hours): Temp Pulse Resp BP Pulse Ox 97.5 F L 87 21 140/70 97 03/15/17 10:00 03/15/17 10:00 03/15/17 10:00 03/15/17 10:00 03/15/17 10:00 Intake and Output: 03/15/17 03/16/17 18:59 05:59 Intake Total 640 Balance 640 - Medications Medications: Current Medications Acetaminophen (Tylenol 325mg Tab) 650 mg PO Q4 PRN PRN Reason: Pain, Mild (1-3) Acetaminophen (Tylenol 325mg Tab) 325 mg PO Q4 PRN PRN Reason: Fever >100.4 F Apixaban (Eliquis) 5 mg PO BID [facility] PRN Reason: Protocol Last Admin: 03/15/17 17:27 Dose: 5 mg Aspirin (Ecotrin) 81 mg PO DAILY [facility] Last Admin: 03/15/17 08:38 Dose: 81 mg Atorvastatin Calcium (Lipitor) 40 mg PO HS [facility] Last Admin: 03/14/17 21:34 Dose: 40 mg Calcitriol (Rocaltrol) 0.25 mcg PO DAILY [facility] Last Admin: 03/15/17 08:37 Dose: 0.25 mcg Calcium Carbonate (Oscal) 500 mg PO BID [facility] Last Admin: 03/15/17 17:31 Dose: 500 mg Collagenase (Santyl) 1 applic TOP 0600 [facility] Last Admin: 03/15/17 06:47 Dose: 1 applic Docusate Sodium (Colace) 100 mg PO BID [facility] Last Admin: 03/15/17 17:27 Dose: 100 mg Epoetin Tha (Procrit) 4,000 unit IV MWF@1630 [facility] Last Admin: 03/14/17 16:00 Dose: 4,000 unit Ergocalciferol (Drisdol 50,000 Intl Units Cap) 1 cap PO Q7D [facility] Last Admin: 03/12/17 08:32 Dose: 1 cap Fluconazole (Diflucan) 100 mg PO DAILY [facility] PRN Reason: Protocol Last Admin: 03/15/17 08:36 Dose: 100 mg Fluticasone Propionate (Flonase) 1 spr ALLAN BID PRN PRN Reason: Dry nasal passages Last Admin: 03/10/17 22:03 Dose: 1 spr Gabapentin (Neurontin) 300 mg PO TID [facility] Last Admin: 03/15/17 17:31 Dose: 300 mg Hydromorphone HCl (Dilaudid) 2 mg PO Q4 PRN PRN Reason: Pain scale 4-10 Last Admin: 03/15/17 17:26 Dose: 2 mg Vancomycin HCl 250 mg/ Sodium (Chloride) 100 mls @ 100 mls/hr IVPB MWF@2000 [facility] PRN Reason: Protocol Last Admin: 03/14/17 21:31 Dose: 100 mls/hr Sodium Chloride (Sodium Chloride 0.9%) 250 mls @ 10 mls/hr IV .Q24H [facility] Stop: 03/17/17 20:46 Last Admin: 03/14/17 20:23 Dose: 10 mls/hr Gentamicin Sulfate 40 mg/ (Sodium Chloride) 101 mls @ 84.167 mls/hr IVPB MWF@ 2000 [facility] PRN Reason: Protocol Last Admin: 03/14/17 23:22 Dose: 84.167 mls/hr Ceftazidime/Avibactam 0.94 gm/ (Sodium Chloride) 100 mls @ 100 mls/hr IVPB MWF@ 2000 [facility] PRN Reason: Protocol Last Admin: 03/14/17 20:19 Dose: 100 mls/hr Lactobacillus Acidophilus (Bacid Acidophilus) 1 cap PO BID [facility] Last Admin: 03/15/17 17:27 Dose: 1 cap Lamotrigine (Lamictal) 50 mg PO Q12 [facility] Last Admin: 03/15/17 08:37 Dose: 50 mg Lamotrigine (Lamictal) 100 mg PO Q12 [facility] Last Admin: 03/15/17 08:38 Dose: 100 mg Metoprolol Tartrate (Lopressor) 25 mg PO Q12 [facility] Last Admin: 03/15/17 10:00 Dose: 25 mg Ondansetron HCl (Zofran Inj) 4 mg IVP Q4 PRN PRN Reason: Nausea/Vomiting Pantoprazole Sodium (Protonix Ec Tab) 40 mg PO DAILY [facility] Last Admin: 03/15/17 08:40 Dose: 40 mg Polyethylene Glycol (Miralax) 17 gm PO DAILY@2200 [facility] Last Admin: 03/14/17 21:34 Dose: 17 gm Repaglinide (Prandin) 1 mg PO ACTID [facility] Last Admin: 03/15/17 17:29 Dose: 1 mg Sennosides (Senokot Tab) 17.2 mg PO HS [facility] Last Admin: 03/14/17 21:34 Dose: 17.2 mg Sevelamer HCl (Renagel) 1,600 mg PO TID [facility] Last Admin: 03/15/17 17:28 Dose: 1,600 mg Simethicone (Mylicon Chew Tab) 80 mg PO TID [facility] Last Admin: 03/15/17 17:30 Dose: 80 mg Vitamin B Complex/Vit C/Folic Acid (Nephro-Ajay) 1 tab PO DAILY [facility] Last Admin: 03/15/17 08:37 Dose: 1 tab - Labs Labs: 03/10/17 15:21 03/10/17 15:21
[2017-03-15] MEDS: Sodium Chloride 0.9% 250 ML IV SCH (20:35)
[2017-03-15] MEDS: POLYETHYLENE GLYCOL 3350 17 GM/Dose PACKET PO SCH (21:29)
[2017-03-16] MEDS: Santyl Collagenase OINTMENT TOP SCH (06:30)
[2017-03-16] MEDS: Lactobacillus Acidophilus 500 MU Cap PO SCH ×2 (09:23→17:11)
[2017-03-16] MEDS: Multivitamin Vitamin B Complex (Nephro-Vite) Tab PO SCH (09:30)
[2017-03-16] MEDS: Simethicone 80 mg Chewtab PO SCH ×3 (09:30→17:13)
[2017-03-16] MEDS: Pantoprazole 40 mg EC Tab PO SCH (09:32)
--- NOTE | 2017-03-16 12:16 | PN ---
DATE: LOCATION: Room 625. SUBJECTIVE: This is a 46-year-old female with known history of type 2 diabetes, currently very optimally controlled on a low-dose oral hypoglycemic drug therapy as given. Her glucose levels have ranged from 106-188 and 135 mg/dL. She is undergoing acute rehabilitation therapy and occupational therapy for a recent right below-knee amputation and a previous left below-knee amputation as noted. She has also ongoing IV antibiotics for management of underlying this osteomyelitis as noted. So, for now, we will continue the same low-dose oral hypoglycemic therapy with Prandin given as 1 mg t.i.d. before meals as ordered. We will titrate incrementally as indicated to optimize metabolic control. We will follow and advise accordingly. Irene Ambrose MD
--- NOTE | 2017-03-16 13:00 | CP.PCM.PN ---
Subjective - Date & Time of Evaluation Date of Evaluation: 03/16/17 Time of Evaluation: 13:00 - Subjective Subjective: Follow up Nephrology Consultation Note Assessment/Plan: End stage renal disease on hemodialysis (MWF) via permacath: no acute need for dialysis today. next HD friday as ordered. continue with Nephrovite 1 tab/day. Anemia: PRBC as needed. On MARTHA as Epogen Hyperphosphatemia: continue with current meds as renagel Secondary hyperparathyroidism with Vit D Deficiency: on calcitriol, Vit D Hypertension controlled Glycemic control, Dialysis consistent diet Further work up/management as per primary team. 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 Dose meds/antibiotics for ESRD status. Avoid fleets enema/magnesium based laxatives. Thanks for allowing me to participate in care of your patient. Will follow patient with you. Please call if any Qs Dr Hernan Andino Office: [phone] Subjective: Noted events overnight. Denies chest pain, palpitation, shortness of breath. Physical Examination: General Appearance: Comfortable, in no acute respiratory distress, co- operative. obese Vitals reviewed and noted as below Lungs: Normal respiratory rate/effort. Breath sounds bilateral equal and clear Heart: Normal rate. s1s2 normal. No rub or gallop. Extremities: s/p Rt BKA, hx of left BKA, has prosthesis. Neurological: Patient is alert, awake and oriented to person, place and time. No focal deficit. Strength bilateral appropriate and equal Skin: Warm and dry. Normal turgor. No rash. Palpitation: Normal elasticity for age Abdomen: Abdomen is soft. Bowel sounds +. There is no abdominal tenderness, no guarding/rigidity or organomegaly. she is obese : kidney or bladder not palpable Access: permacath Labs/imaging reviewed. Past medical history, past surgical history, family history, social history, allergy reviewed Objective - Vital Signs/Intake and Output Vital Signs (last 24 hours): Temp Pulse Resp BP Pulse Ox 98.8 F 104 H 22 149/83 97 03/16/17 08:53 03/16/17 09:28 03/16/17 08:53 03/16/17 09:28 03/16/17 08:53 Intake and Output: 03/16/17 03/16/17 06:59 18:59 Intake Total Balance - Medications Medications: Current Medications Acetaminophen (Tylenol 325mg Tab) 650 mg PO Q4 PRN PRN Reason: Pain, Mild (1-3) Acetaminophen (Tylenol 325mg Tab) 325 mg PO Q4 PRN PRN Reason: Fever >100.4 F Apixaban (Eliquis) 5 mg PO BID [facility] PRN Reason: Protocol Last Admin: 03/16/17 09:27 Dose: 5 mg Aspirin (Ecotrin) 81 mg PO DAILY [facility] Last Admin: 03/16/17 09:27 Dose: 81 mg Atorvastatin Calcium (Lipitor) 40 mg PO HS [facility] Last Admin: 03/15/17 21:31 Dose: 40 mg Calcitriol (Rocaltrol) 0.25 mcg PO DAILY [facility] Last Admin: 03/16/17 09:32 Dose: 0.25 mcg Calcium Carbonate (Oscal) 500 mg PO BID [facility] Last Admin: 03/16/17 09:30 Dose: 500 mg Collagenase (Santyl) 1 applic TOP 0600 [facility] Last Admin: 03/16/17 06:30 Dose: 1 applic Docusate Sodium (Colace) 100 mg PO BID [facility] Last Admin: 03/16/17 09:25 Dose: 100 mg Epoetin Tha (Procrit) 4,000 unit IV MWF@1630 [facility] Last Admin: 03/14/17 16:00 Dose: 4,000 unit Ergocalciferol (Drisdol 50,000 Intl Units Cap) 1 cap PO Q7D [facility] Last Admin: 03/12/17 08:32 Dose: 1 cap Fluconazole (Diflucan) 100 mg PO DAILY [facility] PRN Reason: Protocol Last Admin: 03/16/17 09:25 Dose: 100 mg Fluticasone Propionate (Flonase) 1 spr ALLAN BID PRN PRN Reason: Dry nasal passages Last Admin: 03/16/17 06:31 Dose: 1 spr Gabapentin (Neurontin) 300 mg PO TID [facility] Last Admin: 03/16/17 12:00 Dose: 300 mg Hydromorphone HCl (Dilaudid) 2 mg PO Q4 PRN PRN Reason: Pain scale 4-10 Last Admin: 03/16/17 09:23 Dose: 2 mg Vancomycin HCl 250 mg/ Sodium (Chloride) 100 mls @ 100 mls/hr IVPB MWF@1999 [facility] PRN Reason: Protocol Last Admin: 03/14/17 21:31 Dose: 100 mls/hr Gentamicin Sulfate 40 mg/ (Sodium Chloride) 101 mls @ 84.167 mls/hr IVPB MWF@ 1999 [facility] PRN Reason: Protocol Last Admin: 03/14/17 23:22 Dose: 84.167 mls/hr Ceftazidime/Avibactam 0.94 gm/ (Sodium Chloride) 100 mls @ 100 mls/hr IVPB MWF@ 1999 [facility] PRN Reason: Protocol Last Admin: 03/14/17 20:19 Dose: 100 mls/hr Sodium Chloride (Sodium Chloride 0.9%) 250 mls @ 10 mls/hr IV .Q24H [facility] Stop: 03/24/17 20:46 Lactobacillus Acidophilus (Bacid Acidophilus) 1 cap PO BID [facility] Last Admin: 03/16/17 09:23 Dose: 1 cap Lamotrigine (Lamictal) 50 mg PO Q12 [facility] Last Admin: 03/16/17 09:28 Dose: 50 mg Lamotrigine (Lamictal) 100 mg PO Q12 [facility] Last Admin: 03/16/17 09:27 Dose: 100 mg Metoprolol Tartrate (Lopressor) 25 mg PO Q12 [facility] Last Admin: 03/16/17 09:28 Dose: 25 mg Ondansetron HCl (Zofran Inj) 4 mg IVP Q4 PRN PRN Reason: Nausea/Vomiting Pantoprazole Sodium (Protonix Ec Tab) 40 mg PO DAILY [facility] Last Admin: 03/16/17 09:32 Dose: 40 mg Polyethylene Glycol (Miralax) 17 gm PO DAILY@2200 [facility] Last Admin: 03/15/17 21:29 Dose: 17 gm Repaglinide (Prandin) 1 mg PO ACTID [facility] Last Admin: 03/16/17 11:55 Dose: 1 mg Sennosides (Senokot Tab) 17.2 mg PO HS [facility] Last Admin: 03/15/17 21:31 Dose: 17.2 mg Sevelamer HCl (Renagel) 1,600 mg PO TID [facility] Last Admin: 03/16/17 12:00 Dose: 1,600 mg Simethicone (Mylicon Chew Tab) 80 mg PO TID [facility] Last Admin: 03/16/17 12:00 Dose: 80 mg Vitamin B Complex/Vit C/Folic Acid (Nephro-Ajay) 1 tab PO DAILY [facility] Last Admin: 03/16/17 09:30 Dose: 1 tab - Labs Labs: 03/10/17 15:21 03/10/17 15:21
--- NOTE | 2017-03-16 13:15 | CP.PCM.PN ---
Subjective - Date & Time of Evaluation Date of Evaluation: 03/16/17 Time of Evaluation: 13:06 - Subjective Subjective: Patient has cracked a left upper molar, and this is painful. I spoke with dentist, Dr. Liz, who said that patient would have to be brought to his office at [address] [place], [place] [id number] (across the street from [facility]). He did not specify a time, but said that she should be brought in early in the day. The office number is [phone]. Note early is better because the patient needs hemodialysis tomorrow also. Patient will be able to go via wheelchair. Dr. Liz said that if dental extraction is needed we would have to call an oral surgical consult. In that case we would also have to hold her Eliquis and aspirin for 48 hours. However, first we need Dr. Liz's evaluation and care. Wound care nurse Jessica Vanegas has indicated that the wound is now 1 1/2 in long and 1/2 inch wide (approx.) She is planning wound vac change tomorrow, but that may have to be postposed to Friday depending on other care. Dr. Lemon has indicated that the member needs to continue her current triple IV antibiotics plus the oral fluconazole. Rehabilitation is coming nicely. Patient can now put her left BK prosthesis on by herself - by pushing against the bed footboard. She can transfer bed to wheelchair and back with use of a sliding board and assistance of one. No seizures. No clotting. No fevers, cough, or chest pain. Hgb has improved and Dr. Guadarrama is adjusting epogen accordingly. Objective - Vital Signs/Intake and Output Vital Signs (last 24 hours): Temp Pulse Resp BP Pulse Ox 98.8 F 104 H 22 149/83 97 03/16/17 08:53 03/16/17 09:28 03/16/17 08:53 03/16/17 09:28 03/16/17 08:53 Intake and Output: 03/16/17 03/16/17 06:59 18:59 Intake Total Balance - Medications Medications: Current Medications Acetaminophen (Tylenol 325mg Tab) 650 mg PO Q4 PRN PRN Reason: Pain, Mild (1-3) Acetaminophen (Tylenol 325mg Tab) 325 mg PO Q4 PRN PRN Reason: Fever >100.4 F Apixaban (Eliquis) 5 mg PO BID [facility] PRN Reason: Protocol Last Admin: 03/16/17 09:27 Dose: 5 mg Aspirin (Ecotrin) 81 mg PO DAILY [facility] Last Admin: 03/16/17 09:27 Dose: 81 mg Atorvastatin Calcium (Lipitor) 40 mg PO HS [facility] Last Admin: 03/15/17 21:31 Dose: 40 mg Calcitriol (Rocaltrol) 0.25 mcg PO DAILY [facility] Last Admin: 03/16/17 09:32 Dose: 0.25 mcg Calcium Carbonate (Oscal) 500 mg PO BID [facility] Last Admin: 03/16/17 09:30 Dose: 500 mg Collagenase (Santyl) 1 applic TOP 0600 [facility] Last Admin: 03/16/17 06:30 Dose: 1 applic Docusate Sodium (Colace) 100 mg PO BID [facility] Last Admin: 03/16/17 09:25 Dose: 100 mg Epoetin Tha (Procrit) 4,000 unit IV MWF@1630 [facility] Last Admin: 03/14/17 16:00 Dose: 4,000 unit Ergocalciferol (Drisdol 50,000 Intl Units Cap) 1 cap PO Q7D [facility] Last Admin: 03/12/17 08:32 Dose: 1 cap Fluconazole (Diflucan) 100 mg PO DAILY [facility] PRN Reason: Protocol Last Admin: 03/16/17 09:25 Dose: 100 mg Fluticasone Propionate (Flonase) 1 spr ALLAN BID PRN PRN Reason: Dry nasal passages Last Admin: 03/16/17 06:31 Dose: 1 spr Gabapentin (Neurontin) 300 mg PO TID [facility] Last Admin: 03/16/17 12:00 Dose: 300 mg Hydromorphone HCl (Dilaudid) 2 mg PO Q4 PRN PRN Reason: Pain scale 4-10 Last Admin: 03/16/17 09:23 Dose: 2 mg Vancomycin HCl 250 mg/ Sodium (Chloride) 100 mls @ 100 mls/hr IVPB MWF@2000 [facility] PRN Reason: Protocol Last Admin: 03/14/17 21:31 Dose: 100 mls/hr Gentamicin Sulfate 40 mg/ (Sodium Chloride) 101 mls @ 84.167 mls/hr IVPB MWF@ 2000 [facility] PRN Reason: Protocol Last Admin: 03/14/17 23:22 Dose: 84.167 mls/hr Ceftazidime/Avibactam 0.94 gm/ (Sodium Chloride) 100 mls @ 100 mls/hr IVPB MWF@ 1999 [facility] PRN Reason: Protocol Last Admin: 03/14/17 20:19 Dose: 100 mls/hr Sodium Chloride (Sodium Chloride 0.9%) 250 mls @ 10 mls/hr IV .Q24H [facility] Stop: 03/24/17 20:46 Lactobacillus Acidophilus (Bacid Acidophilus) 1 cap PO BID [facility] Last Admin: 03/16/17 09:23 Dose: 1 cap Lamotrigine (Lamictal) 50 mg PO Q12 [facility] Last Admin: 03/16/17 09:28 Dose: 50 mg Lamotrigine (Lamictal) 100 mg PO Q12 [facility] Last Admin: 03/16/17 09:27 Dose: 100 mg Metoprolol Tartrate (Lopressor) 25 mg PO Q12 [facility] Last Admin: 03/16/17 09:28 Dose: 25 mg Ondansetron HCl (Zofran Inj) 4 mg IVP Q4 PRN PRN Reason: Nausea/Vomiting Pantoprazole Sodium (Protonix Ec Tab) 40 mg PO DAILY [facility] Last Admin: 03/16/17 09:32 Dose: 40 mg Polyethylene Glycol (Miralax) 17 gm PO DAILY@2200 [facility] Last Admin: 03/15/17 21:29 Dose: 17 gm Repaglinide (Prandin) 1 mg PO ACTID [facility] Last Admin: 03/16/17 11:55 Dose: 1 mg Sennosides (Senokot Tab) 17.2 mg PO HS [facility] Last Admin: 03/15/17 21:31 Dose: 17.2 mg Sevelamer HCl (Renagel) 1,600 mg PO TID [facility] Last Admin: 03/16/17 12:00 Dose: 1,600 mg Simethicone (Mylicon Chew Tab) 80 mg PO TID [facility] Last Admin: 03/16/17 12:00 Dose: 80 mg Triamcinolone Acetonide (Kenalog 0.1% In Orabase) 1 appl MM QID [facility] Vitamin B Complex/Vit C/Folic Acid (Nephro-Ajay) 1 tab PO DAILY [facility] Last Admin: 03/16/17 09:30 Dose: 1 tab - Labs Labs: 03/10/17 15:21 03/10/17 15:21 - Constitutional Appears: Other (Moderate distress due to dental pain. ) - Head Exam Head Exam: NORMAL INSPECTION Additional comments: Badly broken left upper molar - Eye Exam Eye Exam: Normal appearance - ENT Exam ENT Exam: Mucous Membranes Moist - Neck Exam Neck Exam: Normal Inspection - Respiratory Exam Respiratory Exam: Clear to Ausculation Bilateral, NORMAL BREATHING PATTERN - Cardiovascular Exam Cardiovascular Exam: REGULAR RHYTHM, +S1, +S2 - Extremities Exam Additional comments: Right BK wound vac intact and patellar dressing intact. L femoral vein PICC line intact. Hands warm. - Back Exam Back Exam: NORMAL INSPECTION - Neurological Exam Neurological Exam: Alert, Oriented x3 - Psychiatric Exam Psychiatric exam: Normal Affect, Normal Mood - Skin Skin Exam: Dry, Normal Color, Warm Assessment and Plan (1) Broken tooth injury Assessment & Plan: See Subjective - will need transport to Dr. Liz's office tomorrow morning. Status: Acute (2) Elevated liver enzymes Status: Acute (3) Status post below knee amputation of right lower extremity Assessment & Plan: Making progress in rehab but not quite ready to go home alone. Status: Acute (4) Infection of amputation stump of right lower extremity Assessment & Plan: As per Dr. Lemon we must continue the current iv antibiotics until the wound is healed. See subjective. Status: Acute (5) DM type 2 (diabetes mellitus, type 2) Assessment & Plan: Well controlled on Prandin now. Status: Chronic (6) ESRD (end stage renal disease) on dialysis Assessment & Plan: Stable on hemodialysis. Status: Chronic (7) Diabetic retinopathy Assessment & Plan: Will be seeing Dr. Hernandez for follow-up in the near future. Status: Acute (8) Seizure disorder Assessment & Plan: controlled. Status: Acute (9) Gallstones without obstruction of gallbladder Status: Acute (10) Coagulopathy Assessment & Plan: Needs to contine Eliquis and aspirin. 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
[2017-03-16] MEDS: Triamcinolone 0.1% Orabase TUBE MM SCH ×2 (14:16→17:12)
[2017-03-16] MEDS ORDERED: Triamcinolone 0.1% Orabase TUBE MM PRN (17:18)
[2017-03-16] MEDS: Sodium Chloride 0.9% 250 ML IV SCH (20:00)
[2017-03-16] MEDS: POLYETHYLENE GLYCOL 3350 17 GM/Dose PACKET PO SCH (21:09)
[2017-03-17] MEDS: Santyl Collagenase OINTMENT TOP SCH (06:39)
[2017-03-17] MEDS: Lactobacillus Acidophilus 500 MU Cap PO SCH ×2 (08:04→16:42)
[2017-03-17] MEDS: Pantoprazole 40 mg EC Tab PO SCH (08:04)
[2017-03-17] MEDS: Simethicone 80 mg Chewtab PO SCH ×3 (08:05→16:42)
[2017-03-17] MEDS: Multivitamin Vitamin B Complex (Nephro-Vite) Tab PO SCH (08:06)
--- NOTE | 2017-03-17 11:28 | CP.PCM.PN ---
Subjective - Date & Time of Evaluation Date of Evaluation: 03/17/17 Time of Evaluation: 11:25 - Subjective Subjective: Patient remain in acute rehabilitation. Patient awake and conscious with good appetite Patient has a good spirit and cooperating Vital signs stable Objective - Vital Signs/Intake and Output Vital Signs (last 24 hours): Temp Pulse Resp BP Pulse Ox 97.3 F L 101 H 20 168/79 H 95 03/17/17 08:28 03/17/17 08:28 03/17/17 08:28 03/17/17 08:28 03/17/17 08:28 Intake and Output: 03/17/17 03/17/17 06:59 18:59 Intake Total 240 Balance 240 - Medications Medications: Current Medications Acetaminophen (Tylenol 325mg Tab) 650 mg PO Q4 PRN PRN Reason: Pain, Mild (1-3) Acetaminophen (Tylenol 325mg Tab) 325 mg PO Q4 PRN PRN Reason: Fever >100.4 F Apixaban (Eliquis) 5 mg PO BID [facility] PRN Reason: Protocol Last Admin: 03/17/17 08:05 Dose: 5 mg Aspirin (Ecotrin) 81 mg PO DAILY [facility] Last Admin: 03/17/17 08:05 Dose: 81 mg Atorvastatin Calcium (Lipitor) 40 mg PO HS [facility] Last Admin: 03/16/17 21:08 Dose: 40 mg Calcitriol (Rocaltrol) 0.25 mcg PO DAILY [facility] Last Admin: 03/17/17 08:05 Dose: 0.25 mcg Calcium Carbonate (Oscal) 500 mg PO BID [facility] Last Admin: 03/17/17 08:05 Dose: 500 mg Collagenase (Santyl) 1 applic TOP 0600 [facility] Last Admin: 03/17/17 06:39 Dose: 1 applic Docusate Sodium (Colace) 100 mg PO BID [facility] Last Admin: 03/17/17 08:04 Dose: 100 mg Epoetin Tha (Procrit) 4,000 unit IV MWF@1630 [facility] Last Admin: 03/14/17 16:00 Dose: 4,000 unit Ergocalciferol (Drisdol 50,000 Intl Units Cap) 1 cap PO Q7D [facility] Last Admin: 03/12/17 08:32 Dose: 1 cap Fluconazole (Diflucan) 100 mg PO DAILY [facility] PRN Reason: Protocol Last Admin: 03/17/17 08:07 Dose: 100 mg Fluticasone Propionate (Flonase) 1 spr ALLAN BID PRN PRN Reason: Dry nasal passages Last Admin: 03/16/17 06:31 Dose: 1 spr Gabapentin (Neurontin) 300 mg PO TID [facility] Last Admin: 03/17/17 08:04 Dose: 300 mg Hydromorphone HCl (Dilaudid) 2 mg PO Q4 PRN PRN Reason: Pain scale 4-10 Last Admin: 03/17/17 08:01 Dose: 2 mg Vancomycin HCl 250 mg/ Sodium (Chloride) 100 mls @ 100 mls/hr IVPB MWF@2000 [facility] PRN Reason: Protocol Last Admin: 03/14/17 21:31 Dose: 100 mls/hr Gentamicin Sulfate 40 mg/ (Sodium Chloride) 101 mls @ 84.167 mls/hr IVPB MWF@ 2000 [facility] PRN Reason: Protocol Last Admin: 03/14/17 23:22 Dose: 84.167 mls/hr Ceftazidime/Avibactam 0.94 gm/ (Sodium Chloride) 100 mls @ 100 mls/hr IVPB MWF@ 2000 [facility] PRN Reason: Protocol Last Admin: 03/14/17 20:19 Dose: 100 mls/hr Sodium Chloride (Sodium Chloride 0.9%) 250 mls @ 10 mls/hr IV .Q24H [facility] Stop: 03/24/17 20:46 Last Admin: 03/16/17 20:00 Dose: 10 mls/hr Lactobacillus Acidophilus (Bacid Acidophilus) 1 cap PO BID [facility] Last Admin: 03/17/17 08:04 Dose: 1 cap Lamotrigine (Lamictal) 50 mg PO Q12 [facility] Last Admin: 03/17/17 08:06 Dose: 50 mg Lamotrigine (Lamictal) 100 mg PO Q12 [facility] Last Admin: 03/17/17 08:06 Dose: 100 mg Metoprolol Tartrate (Lopressor) 25 mg PO Q12 [facility] Last Admin: 03/17/17 08:06 Dose: 25 mg Ondansetron HCl (Zofran Inj) 4 mg IVP Q4 PRN PRN Reason: Nausea/Vomiting Pantoprazole Sodium (Protonix Ec Tab) 40 mg PO DAILY [facility] Last Admin: 03/17/17 08:04 Dose: 40 mg Polyethylene Glycol (Miralax) 17 gm PO DAILY@2200 [facility] Last Admin: 03/16/17 21:09 Dose: 17 gm Repaglinide (Prandin) 1 mg PO ACTID [facility] Last Admin: 03/17/17 08:04 Dose: 1 mg Sennosides (Senokot Tab) 17.2 mg PO HS [facility] Last Admin: 03/16/17 21:09 Dose: 17.2 mg Sevelamer HCl (Renagel) 1,600 mg PO TID [facility] Last Admin: 03/17/17 08:05 Dose: 1,600 mg Simethicone (Mylicon Chew Tab) 80 mg PO TID [facility] Last Admin: 03/17/17 08:05 Dose: 80 mg Triamcinolone Acetonide (Kenalog 0.1% In Orabase) 1 appl MM QID PRN PRN Reason: Toothache Vitamin B Complex/Vit C/Folic Acid (Nephro-Ajay) 1 tab PO DAILY [facility] Last Admin: 03/17/17 08:06 Dose: 1 tab - Labs Labs: 03/10/17 15:21 03/10/17 15:21 - Constitutional Appears: No Acute Distress - ENT Exam ENT Exam: Mucous Membranes Moist - Respiratory Exam Respiratory Exam: absent: Chest Wall Tenderness - Cardiovascular Exam Cardiovascular Exam: REGULAR RHYTHM. absent: Rubs - GI/Abdominal Exam GI & Abdominal Exam: Soft, Normal Bowel Sounds - Extremities Exam Extremities Exam: absent: Calf Tenderness - Back Exam Back Exam: absent: CVA tenderness (L), CVA tenderness (R) - Neurological Exam Neurological Exam: Alert - Psychiatric Exam Psychiatric exam: Normal Affect, Normal Mood Assessment and Plan (1) CKD (chronic kidney disease) stage V requiring chronic dialysis Assessment & Plan: Patient with end stage renal disease to receive dialysis after completion of rehabilitation session. Dialysis ordered discussed with the dialysis nurse. See my order. The rest of her medical problem as noted The anemia has been well controlled on EPO. Hyperphosphatemia: continue with current meds as renagel 1600 TID, Secondary hyperparathyroidism with Vit D Deficiency: on calcitriol Hypertension controlled Glycemic control, Dialysis consistent diet Further work up/management as per primary team. 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
--- NOTE | 2017-03-17 15:14 | CP.PCM.PN ---
Subjective - Date & Time of Evaluation Date of Evaluation: 03/17/17 Time of Evaluation: 15:10 - Subjective Subjective: Patient was seen by Dr. Liz at his dental office this morning. The #20 left upper molar has a complete linear crack due to previous disease and requires extraction by an oral surgeon. I discussed this will Dr. Evita Shepard, who agrees that this should be done as a Same Day surgical procedure here at [facility]. We can stop the Eliquis and the aspirin 48 hours before such a procedure with little risk of either major bleed or clotting. I contacted Dr. Ronny Erickson's office. He is the only oral surgeon who comes here to [facility]. His underground mine machinery mechanic, Suni, will be speaking with him. Consultation requested. Patient has some discomfort if she forgets and eats on the left side. Otherwise, she is OK. Patient is tired, did limited physical therapy today, and will begin dialysis now. All three IV antibiotics need to be continued per Dr. Lemon. The wound is healing nicely. Wound care notes by Shaye Terry follow: Right stump vac dressing removed. Wound has 100% granulation tissue and base. It measures 6 cm wide and 1.5 cm long with an area on the lateral end that is almost meeting. Cleansed with NS and vac dressing reapplied at 125 mmHg low continuous suction. Right knee wound with 10% slough and 90% granulation tissue.Cleansed with NS, no loose slough. Santyl and DSD applied. Will change on 03/20/17. Glucoses controlled. Objective - Vital Signs/Intake and Output Vital Signs (last 24 hours): Temp Pulse Resp BP Pulse Ox 97.3 F L 101 H 20 168/79 H 95 03/17/17 08:28 03/17/17 11:32 03/17/17 08:28 03/17/17 11:32 03/17/17 11:32 Intake and Output: 03/17/17 03/17/17 06:59 18:59 Intake Total 240 Balance 240 - Medications Medications: Current Medications Acetaminophen (Tylenol 325mg Tab) 650 mg PO Q4 PRN PRN Reason: Pain, Mild (1-3) Acetaminophen (Tylenol 325mg Tab) 325 mg PO Q4 PRN PRN Reason: Fever >100.4 F Apixaban (Eliquis) 5 mg PO BID [facility] PRN Reason: Protocol Last Admin: 03/17/17 08:05 Dose: 5 mg Aspirin (Ecotrin) 81 mg PO DAILY [facility] Last Admin: 03/17/17 08:05 Dose: 81 mg Atorvastatin Calcium (Lipitor) 40 mg PO HS [facility] Last Admin: 03/16/17 21:08 Dose: 40 mg Calcitriol (Rocaltrol) 0.25 mcg PO DAILY [facility] Last Admin: 03/17/17 08:05 Dose: 0.25 mcg Calcium Carbonate (Oscal) 500 mg PO BID [facility] Last Admin: 03/17/17 08:05 Dose: 500 mg Collagenase (Santyl) 1 applic TOP 0600 [facility] Last Admin: 03/17/17 06:39 Dose: 1 applic Docusate Sodium (Colace) 100 mg PO BID [facility] Last Admin: 03/17/17 08:04 Dose: 100 mg Epoetin Tha (Procrit) 4,000 unit IV MWF@1630 [facility] Last Admin: 03/14/17 16:00 Dose: 4,000 unit Ergocalciferol (Drisdol 50,000 Intl Units Cap) 1 cap PO Q7D [facility] Last Admin: 03/12/17 08:32 Dose: 1 cap Fluconazole (Diflucan) 100 mg PO DAILY [facility] PRN Reason: Protocol Last Admin: 03/17/17 08:07 Dose: 100 mg Fluticasone Propionate (Flonase) 1 spr ALLAN BID PRN PRN Reason: Dry nasal passages Last Admin: 03/16/17 06:31 Dose: 1 spr Gabapentin (Neurontin) 300 mg PO TID [facility] Last Admin: 03/17/17 12:23 Dose: 300 mg Hydromorphone HCl (Dilaudid) 2 mg PO Q4 PRN PRN Reason: Pain scale 4-10 Last Admin: 03/17/17 08:01 Dose: 2 mg Vancomycin HCl 250 mg/ Sodium (Chloride) 100 mls @ 100 mls/hr IVPB MWF@2000 [facility] PRN Reason: Protocol Last Admin: 03/14/17 21:31 Dose: 100 mls/hr Gentamicin Sulfate 40 mg/ (Sodium Chloride) 101 mls @ 84.167 mls/hr IVPB MWF@ 2000 [facility] PRN Reason: Protocol Last Admin: 03/14/17 23:22 Dose: 84.167 mls/hr Ceftazidime/Avibactam 0.94 gm/ (Sodium Chloride) 100 mls @ 100 mls/hr IVPB MWF@ 2000 [facility] PRN Reason: Protocol Last Admin: 03/14/17 20:19 Dose: 100 mls/hr Sodium Chloride (Sodium Chloride 0.9%) 250 mls @ 10 mls/hr IV .Q24H [facility] Stop: 03/24/17 20:46 Last Admin: 03/16/17 20:00 Dose: 10 mls/hr Lactobacillus Acidophilus (Bacid Acidophilus) 1 cap PO BID [facility] Last Admin: 03/17/17 08:04 Dose: 1 cap Lamotrigine (Lamictal) 50 mg PO Q12 [facility] Last Admin: 03/17/17 08:06 Dose: 50 mg Lamotrigine (Lamictal) 100 mg PO Q12 [facility] Last Admin: 03/17/17 08:06 Dose: 100 mg Metoprolol Tartrate (Lopressor) 25 mg PO Q12 [facility] Last Admin: 03/17/17 08:06 Dose: 25 mg Ondansetron HCl (Zofran Inj) 4 mg IVP Q4 PRN PRN Reason: Nausea/Vomiting Pantoprazole Sodium (Protonix Ec Tab) 40 mg PO DAILY [facility] Last Admin: 03/17/17 08:04 Dose: 40 mg Polyethylene Glycol (Miralax) 17 gm PO DAILY@2200 [facility] Last Admin: 03/16/17 21:09 Dose: 17 gm Repaglinide (Prandin) 1 mg PO ACTID [facility] Last Admin: 03/17/17 12:23 Dose: 1 mg Sennosides (Senokot Tab) 17.2 mg PO HS [facility] Last Admin: 03/16/17 21:09 Dose: 17.2 mg Sevelamer HCl (Renagel) 1,600 mg PO TID [facility] Last Admin: 03/17/17 12:23 Dose: 1,600 mg Simethicone (Mylicon Chew Tab) 80 mg PO TID [facility] Last Admin: 03/17/17 12:23 Dose: 80 mg Triamcinolone Acetonide (Kenalog 0.1% In Orabase) 1 appl MM QID PRN PRN Reason: Toothache Vitamin B Complex/Vit C/Folic Acid (Nephro-Ajay) 1 tab PO DAILY [facility] Last Admin: 03/17/17 08:06 Dose: 1 tab - Labs Labs: 03/10/17 15:21 03/10/17 15:21 - Constitutional Appears: No Acute Distress - Head Exam Head Exam: NORMAL INSPECTION - Eye Exam Eye Exam: Normal appearance - ENT Exam Additional comments: SEE SUBJECTIVE - Neck Exam Neck Exam: Normal Inspection - Respiratory Exam Respiratory Exam: Clear to Ausculation Bilateral, NORMAL BREATHING PATTERN - Cardiovascular Exam Cardiovascular Exam: REGULAR RHYTHM, +S1, +S2 - GI/Abdominal Exam GI & Abdominal Exam: Soft - Extremities Exam Additional comments: Dressings intact RLE. PICC line intact left femoral area. Hands warm. - Neurological Exam Neurological Exam: Alert, Oriented x3 - Psychiatric Exam Psychiatric exam: Normal Affect, Normal Mood - Skin Skin Exam: Dry, Normal Color, Warm Assessment and Plan (1) Broken tooth injury Assessment & Plan: SEE SUBJECTIVE. Status: Acute (2) Elevated liver enzymes Status: Acute (3) Status post below knee amputation of right lower extremity Assessment & Plan: SEE SUBJECTIVE. Status: Acute (4) Infection of amputation stump of right lower extremity Assessment & Plan: SEE SUBJECTIVE. Status: Acute (5) DM type 2 (diabetes mellitus, type 2) Assessment & Plan: SEE SUBJECTIVE. Status: Chronic (6) ESRD (end stage renal disease) on dialysis Assessment & Plan: See note by Dr. Guadarrama Status: Chronic (7) Diabetic retinopathy Status: Acute (8) Seizure disorder Assessment & Plan: Controlled. 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
[2017-03-17] MEDS: Epoetin Alfa 4000 UNIT/ML Inj IV SCH (16:39)
[2017-03-17 17:20] LABS: BASO # 0.1 K/uL (0.0-0.2); BASO % 0.9 % (0.0-2.0); EOS # 0.6 K/uL (0.0-0.7); EOS % 7.8 % (0.0-4.0); HEMATOCRIT 32.6 % (34.0-47.0); LYMPH # 1.2 K/uL (1.0-4.3); LYMPH % 16.3 % (20.0-40.0); MEAN CELL VOLUME 93.9 fl (81.0-99.0); MEAN CORPUSCULAR HEMOGLOBIN 29.4 pg (27.0-31.0); MEAN CORPUSCULAR HGB CONC 31.3 g/dL (33.0-37.0); MEAN PLATELET VOLUME 9.6 fl (7.2-11.7); MONO # 0.6 K/uL (0.0-0.8); MONO % 8.5 % (0.0-10.0); NEUT % 66.5 % (50.0-75.0); RED CELL DISTRIBUTION WIDTH 17.2 % (11.5-14.5); WHITE BLOOD COUNT 7.5 K/uL (4.8-10.8)
[2017-03-17 17:26] LABS: BILIRUBIN,TOTAL 0.4 mg/dl (0.2-1.3); CALCIUM 8.9 mg/dL (8.4-10.2); TOTAL PROTEIN 8.3 G/DL (6.3-8.2)
[2017-03-17 18:00] LABS: POTASSIUM 5.7 MMOL/L (3.6-5.0)
[2017-03-17] MEDS: Vancomycin 250 MG in Sodium Chloride 0.9% 100 ML IVPB SCH (19:21)
[2017-03-17] MEDS: Sodium Chloride 0.9% 250 ML IV SCH (19:55)
--- NOTE | 2017-03-17 20:33 | PN ---
ENDOCRINOLOGY FOLLOW UP NOTE DATE: LOCATION: Room 625. SUBJECTIVE: This is a 46 year old female with recent uncontrolled type 2 diabetes, currently doing very well on oral hypoglycemic therapy and is now being followed closely for metabolic management. She is undergoing IV antibiotic management for management of right below knee amputation and associated underlying osteomyelitis. She is undergoing acute rehabilitation therapy now for a recent right below knee amputation left below knee amputation and stump. Her latest glucose levels have ranged from 86 to 106 and 165 mg/dL. Her latest chemistries are pending at this time, so for now, we will continue the same low dose Prandin given as 1 mg p.o. t.i.d. before meals as ordered. We will titrate incrementally as indicated to optimize metabolic control. We will follow this patient. Irene Ambrose MD
[2017-03-17] MEDS: POLYETHYLENE GLYCOL 3350 17 GM/Dose PACKET PO SCH (21:59)
[2017-03-18] MEDS: Santyl Collagenase OINTMENT TOP SCH (05:17)
[2017-03-18] MEDS: Lactobacillus Acidophilus 500 MU Cap PO SCH ×2 (08:24→16:10)
[2017-03-18] MEDS: Simethicone 80 mg Chewtab PO SCH ×3 (08:26→16:12)
[2017-03-18] MEDS: Multivitamin Vitamin B Complex (Nephro-Vite) Tab PO SCH (08:26)
[2017-03-18] MEDS: Pantoprazole 40 mg EC Tab PO SCH (08:26)
--- NOTE | 2017-03-18 13:20 | PSY.TMCNF ---
Nursing - Vital Signs Vital Signs (Last 8 hours): Vital Signs 03/18/17 03/18/17 03/18/17 08:27 09:00 10:00 Temperature 96.3 F L 96.3 F L Pulse Rate 101 H 101 H 101 H Respiratory 20 20 Rate Blood Pressure 143/88 143/88 143/88 O2 Sat by Pulse 95 Oximetry Pain: 0 - Precautions: Precautions: Fall Prevention Isolation: Contact - Medications/Other Issues Comment: Wound care, pain management, infection control - Consults Comment: Dr Daniels,Dr Arnol Guadarrama, Dr. Erickson - Skin Incision Site: Rt stump Drainage: Sanguineous Dressing Status: Clean, Dry, Intact Incision: Healing Well Incision Line Treatment: 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 dressing changed by advanced practice rn Friday and wound on the upper lateral part of the stump on santyl dressing daily by dental surgeon rn - Toileting Toileting: Dependent - Bladder Management Voiding Method: Bedpan - Bowel Management Bowel Pattern: Normal Bowel Management: Dependent - Transfers Transfers: Moderate Assistance - ADL's ADL's: Moderate Assistance - Pain Management Comments: on dilaudid for pain q4h prn - Patient/Family Teaching Comments: infection control, safety, pain management. - Goals/Time Frame Comments: as per multidiciplinary plan of care - Provider Provider: Magan Hodgson RN Physical Therapy - Bed Mobility Bed Mobility: Supervision, Verbal Cues, Contact Guard Comment: supine to sit CS. sit to supine CG. rolling L/R CG/min A. patient uses bed controls to assist with bed mobility; - Transfers Wheelchair to Mat: Verbal Cues, Minimal Assistance Sit to Stand: Verbal Cues, Maximum Assistance, Dependent Comment: sit to stand donning L TT prosthesis w/ max A x 2 and B HW. slide board with min A, max vc/tc using mechanical high/low mat for downhill movement. L knee stabilized during task. Beasy Board used for transfers in room - Ambulation Level of Assistance: Not Tested Assistive Devices: N/A Comment: pt currently is non-amb, primary mode of locomotion is w/c. WHEELCHAIR MGMT. -I with brake management once in chair; requires assistance to lock/manage far brake during transfers to due to inability to reach (will attempt brake extension); increased time with VCs for R sided arm rest management; mod/max A for L elevating leg rest; min A for R sided leg rest management (calf pad only; foot rest removed 2 to BKA), min A for arm rests. propels up to 200' CS w/ rest periods prn - Stair Negotiation Stairs: Level of Assistance: Not Tested Comment: pt currently is non-amb, primary mode of locomotion is w/c - Standing Balance Static Stand: Maximal Assistance Dynamic Stand: Unable to assess/perform Comment: 2 person assist for 60 seconds standing trials - Pain Management Techniques: Medication, Position Change - Insight/Carryover Insight/Carryover: Good - Patient/Family Education Comment: posture, Recovery after amputation, residual limb care, transfers, fall prevention and pressure relief techniques, prosthetic mgmt, wheelchair mgmt , DME, HEP, rehab goals. POC - Assessment/Plan Assessment: 46 year old female admitted to [facility] acute rehab after TCU rehab stay preceeded by an extensive acute care hospitalization secondary to a myriad of complications. Pt w/ old L TT amp and new R TT amp w/ L prosthesis. Pt is improving w/ fxnl mob and will benefit from extended acute rehab stay to maximize fxnl indep, balance and safety donning L TT prosthesis at the w/c level w/ cont'd L prosthetic mgmt, B residual limb care and therapeutic standing. Patient continues to require total A to don prosthesis socket with pilon and leg in order to lock into pin prior to transfers and mobility. PT recommends continued skilled therapy services in the sub-acute setting to continue addressing needs prior to patient being discharged home. - Goals Timeframe: 2 weeks Goals: Family training. primary care-taker will complete training in order to safely demonstrate understanding of the following: -assisting patient with don/ doffing of patient's prosthesis. -assisting patient with re-positioning in bed. -assisting patient with set-up for transfers including wheelchair part managemene and transfer board positioning. -assisting patient with transfer including stabilizing surfaces and prosthesis and guiding patient in proper location to ensure safety with transfer. Standing tolerance. stand with a SW for up to 3 minutes with supervision using her prosthetic so she can wash her face standing at the sink. sitting balance. sitting on edge of bed donning and doffing her residual limb tax advisor independently. bed to chair transfer with prosthetic supervision. sit <> stand transfer with prosthetic on the L minimal assistance. -rolling with mod I with use of hospital bed. -supine to/ from sit with mod I with use of hospital bed - Provider Therapist: Maria E Mckeon PT, DPT License Number: [id number] Occupational Therapy - Arousal/Attention/Orientation Patient Orientation: Person, Place, Time, Appropriate to Age, Appropriate to Situation - ADL/IADL Self Feeding: Set-up Help Grooming: Supervision, Verbal Cues, Set-up Help Dressing-Upper Extremity: Supervision, Verbal Cues, Set-up Help Dressing-Lower Extremity: Verbal Cues, Set-up Help, Minimal Assistance - Sitting Balance Static Sitting: Independent without upper extremity support Dynamic Sitting: Requires supervision, Contact Guard Assist - Transfers Wheelchair to Bed Transfers: Minimal Assistance Toilet Transfers: Maximum Assistance - Wheelchair Management Level of Assistance: Supervision, Verbal Cues, Set-up Help Distance (ft.): 100 - Upper Extremity Status Right Upper Extremity Comment: ROM WFL, pt with 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, generalized weakness Left Upper Extremity Comment: ROM WFL, pt with 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 , generalized weakness - Pain Alleviating Techniques: Medication, Position Change - Insight/Carryover Insight/Carryover: Good - Patient/Family Education Comment: posture, Recovery after amputation, residual limb care, transfers, fall prevention and pressure relief techniques, prosthetic mgmt, wheelchair mgmt , DME, HEP, rehab goals. POC - Assessment/Plan Assessment: 46 year old female admitted to [facility] acute rehab after TCU rehab stay preceeded by an extensive acute care hospitalization secondary to a myriad of complications. Pt w/ old L TT amp and new R TT amp w/ L prosthesis. Pt is improving w/ fxnl mob and will benefit from extended acute rehab stay to maximize fxnl indep, balance and safety donning L TT prosthesis at the w/c level w/ cont'd L prosthetic mgmt, B residual limb care and therapeutic standing. Patient continues to require total A to don prosthesis socket with pilon and leg in order to lock into pin prior to transfers and mobility. PT recommends continued skilled therapy services in the sub-acute setting to continue addressing needs prior to patient being discharged home. - Goals Timeframe: 2 weeks Goals: Family training. primary care-taker will complete training in order to safely demonstrate understanding of the following: -assisting patient with don/ doffing of patient's prosthesis. -assisting patient with re-positioning in bed. -assisting patient with set-up for transfers including wheelchair part managemene and transfer board positioning. -assisting patient with transfer including stabilizing surfaces and prosthesis and guiding patient in proper location to ensure safety with transfer. Standing tolerance. stand with a SW for up to 3 minutes with supervision using her prosthetic so she can wash her face standing at the sink. sitting balance. sitting on edge of bed donning and doffing her residual limb tax advisor independently. bed to chair transfer with prosthetic supervision. sit <> stand transfer with prosthetic on the L minimal assistance. -rolling with mod I with use of hospital bed. -supine to/ from sit with mod I with use of hospital bed - Provider Therapist: Alyce Morelos MS,OT/L License Number: [id number] Speech Therapy - Plan Assessment: 46 year old female admitted to [facility] acute rehab after TCU rehab stay preceeded by an extensive acute care hospitalization secondary to a myriad of complications. Pt w/ old L TT amp and new R TT amp w/ L prosthesis. Pt is improving w/ fxnl mob and will benefit from extended acute rehab stay to maximize fxnl indep, balance and safety donning L TT prosthesis at the w/c level w/ cont'd L prosthetic mgmt, B residual limb care and therapeutic standing. Patient continues to require total A to don prosthesis socket with pilon and leg in order to lock into pin prior to transfers and mobility. PT recommends continued skilled therapy services in the sub-acute setting to continue addressing needs prior to patient being discharged home. Recreational Therapy - Participation Participation: Participates in Individual and/or Group Sessions, Monitors His/ Her Own Leisure Time - Attendance Attendance: 3-5 times per week - Activities Leisure Activities: Television - Socialization Level of Socialization: Initiates/interacts freely with care givers and peer, Initiates/interacts with caregivers but not with peer - Diversional Time Diversional Time: television, word searches - Assessment Assessment/Plan: 46 year old female admitted to [facility] acute rehab after TCU rehab stay preceeded by an extensive acute care hospitalization secondary to a myriad of complications. Pt w/ old L TT amp and new R TT amp w/ L prosthesis. Pt is improving w/ fxnl mob and will benefit from extended acute rehab stay to maximize fxnl indep, balance and safety donning L TT prosthesis at the w/c level w/ cont'd L prosthetic mgmt, B residual limb care and therapeutic standing. Patient continues to require total A to don prosthesis socket with pilon and leg in order to lock into pin prior to transfers and mobility. PT recommends continued skilled therapy services in the sub-acute setting to continue addressing needs prior to patient being discharged home. - Provider Therapist: Keren Hair, RN TELEPHONIC #[id number] Nutrition - Current Diet Current Diet/ Supplement/ Feedings: Renal dialysis, 2 gram Na, 2 gram K+, 80 gram protein diet with Nepro 8 ounces once daily. - Appetite Percent Meal Consumed: 75-100% - Comments Comments: infection control, safety, pain management. - Assessment/Goals/Time Frame Assessment/Goals/Time Frame: Wound care, pain management, infection control - Provider Provider: Alyce Mccormick MS, RD Case Management - Psychosocial Assessment Support Systems: Lucia Leo (sibling)- [phone]. Sandra Leo (mother)- [phone] Psychological Interventions/Needs: Patient is alert and oriented x3, cooperative and motivated for therapy Discharge Concerns: Patient CG-Roc for all functional moblity. Currently on wound vac for R stump Patient/Family Meeting: CM met with patient and rehab team Intervention/Goal/Outcome:: 1. PLAN: ALFONZO- plan for [facility] for continued inpatient rehab, wound care and HD. 2. tentative discharge date for 03/13/2017, insurance LAD: 03/13/2017, updates to be faxed to insurance for possible extension of acute rehab stay. 3. continued emotional support - Discharge Plan Discharge Plan: Subacute care - Provider Provider: MARYBETH Lenz, DRILL RIG OPERATOR License Number: [id number] Rehabilitation Plan - Treatment Plan Treatment Plan: Physical Therapy, Occupational Therapy, Dietary, Patient/Family Education - Discharge Plan Discharge to: Subacute (she is not safe for a discharge home)
--- NOTE | 2017-03-18 13:32 | CP.PCM.PN ---
Subjective - Date & Time of Evaluation Date of Evaluation: 03/18/17 Time of Evaluation: 13:29 - Subjective Subjective: Patient seen in room denies pain pending tooth surgery and will need to hold AC for this [facility]ON[facility] which clearly needs to happen in that she is not safe or capable of attending to her needs at home given lack of 24 hour support Objective - Vital Signs/Intake and Output Vital Signs (last 24 hours): Temp Pulse Resp BP Pulse Ox 96.3 F L 101 H 20 143/88 95 03/18/17 10:00 03/18/17 10:00 03/18/17 10:00 03/18/17 10:00 03/18/17 10:00 Intake and Output: 03/18/17 03/18/17 06:59 18:59 Intake Total 660 Balance 660 - Medications Medications: Current Medications Acetaminophen (Tylenol 325mg Tab) 650 mg PO Q4 PRN PRN Reason: Pain, Mild (1-3) Acetaminophen (Tylenol 325mg Tab) 325 mg PO Q4 PRN PRN Reason: Fever >100.4 F Apixaban (Eliquis) 5 mg PO BID [facility] PRN Reason: Protocol Last Admin: 03/18/17 08:26 Dose: 5 mg Aspirin (Ecotrin) 81 mg PO DAILY [facility] Last Admin: 03/18/17 08:26 Dose: 81 mg Atorvastatin Calcium (Lipitor) 40 mg PO HS [facility] Last Admin: 03/17/17 21:59 Dose: 40 mg Calcitriol (Rocaltrol) 0.25 mcg PO DAILY [facility] Last Admin: 03/18/17 08:26 Dose: 0.25 mcg Calcium Carbonate (Oscal) 500 mg PO BID [facility] Last Admin: 03/18/17 08:27 Dose: 500 mg Collagenase (Santyl) 1 applic TOP 0600 [facility] Last Admin: 03/18/17 05:17 Dose: 1 applic Docusate Sodium (Colace) 100 mg PO BID [facility] Last Admin: 03/18/17 08:37 Dose: 100 mg Epoetin Tha (Procrit) 4,000 unit IV MWF@1630 [facility] Last Admin: 03/17/17 16:39 Dose: 4,000 unit Ergocalciferol (Drisdol 50,000 Intl Units Cap) 1 cap PO Q7D [facility] Last Admin: 03/12/17 08:32 Dose: 1 cap Fluconazole (Diflucan) 100 mg PO DAILY [facility] PRN Reason: Protocol Last Admin: 03/18/17 08:28 Dose: 100 mg Fluticasone Propionate (Flonase) 1 spr ALLAN BID PRN PRN Reason: Dry nasal passages Last Admin: 03/16/17 06:31 Dose: 1 spr Gabapentin (Neurontin) 300 mg PO TID [facility] Last Admin: 03/18/17 12:16 Dose: 300 mg Hydromorphone HCl (Dilaudid) 2 mg PO Q4 PRN PRN Reason: Pain scale 4-10 Last Admin: 03/18/17 08:24 Dose: 2 mg Vancomycin HCl 250 mg/ Sodium (Chloride) 100 mls @ 100 mls/hr IVPB MWF@2000 [facility] PRN Reason: Protocol Last Admin: 03/17/17 19:21 Dose: 100 mls/hr Gentamicin Sulfate 40 mg/ (Sodium Chloride) 101 mls @ 84.167 mls/hr IVPB MWF@ 2000 [facility] PRN Reason: Protocol Last Admin: 03/17/17 20:22 Dose: 84.167 mls/hr Ceftazidime/Avibactam 0.94 gm/ (Sodium Chloride) 100 mls @ 100 mls/hr IVPB MWF@ 2000 [facility] PRN Reason: Protocol Last Admin: 03/17/17 21:24 Dose: 100 mls/hr Sodium Chloride (Sodium Chloride 0.9%) 250 mls @ 10 mls/hr IV .Q24H [facility] Stop: 03/24/17 20:46 Last Admin: 03/17/17 19:55 Dose: 10 mls/hr Lactobacillus Acidophilus (Bacid Acidophilus) 1 cap PO BID [facility] Last Admin: 03/18/17 08:24 Dose: 1 cap Lamotrigine (Lamictal) 50 mg PO Q12 [facility] Last Admin: 03/18/17 08:27 Dose: 50 mg Lamotrigine (Lamictal) 100 mg PO Q12 [facility] Last Admin: 03/18/17 08:27 Dose: 100 mg Metoprolol Tartrate (Lopressor) 25 mg PO Q12 [facility] Last Admin: 03/18/17 08:27 Dose: 25 mg Ondansetron HCl (Zofran Inj) 4 mg IVP Q4 PRN PRN Reason: Nausea/Vomiting Pantoprazole Sodium (Protonix Ec Tab) 40 mg PO DAILY [facility] Last Admin: 03/18/17 08:26 Dose: 40 mg Polyethylene Glycol (Miralax) 17 gm PO DAILY@2200 [facility] Last Admin: 03/17/17 21:59 Dose: 17 gm Repaglinide (Prandin) 1 mg PO ACTID [facility] Last Admin: 03/18/17 08:28 Dose: 1 mg Sennosides (Senokot Tab) 17.2 mg PO HS [facility] Last Admin: 03/17/17 21:59 Dose: 17.2 mg Sevelamer HCl (Renagel) 1,600 mg PO TID [facility] Last Admin: 03/18/17 12:15 Dose: 1,600 mg Simethicone (Mylicon Chew Tab) 80 mg PO TID [facility] Last Admin: 03/18/17 12:17 Dose: 80 mg Triamcinolone Acetonide (Kenalog 0.1% In Orabase) 1 appl MM QID PRN PRN Reason: Toothache Vitamin B Complex/Vit C/Folic Acid (Nephro-Ajay) 1 tab PO DAILY [facility] Last Admin: 03/18/17 08:26 Dose: 1 tab - Labs Labs: 03/17/17 17:10 03/17/17 17:10
--- NOTE | 2017-03-18 18:01 | PN ---
ENDO FOLLOWUP NOTE LOCATION: In room 625. SUBJECTIVE: This is a 46-year-old female with recent uncontrolled type 2 diabetes now being followed closely for metabolic management. Her glycemic levels have remained near optimal at this time and the latest glucose levels have ranged from 86-103 and 165 mg/dL. Her latest chemistry showed a BUN of 99, sodium 142, potassium 5.7, chloride 104, CO2 of 20, glucose 111 and creatinine 8.7. So, at this time, we will continue the low-dose oral hypoglycemic therapy with Prandin given as 1 mg p.o. t.i.d. before meals as ordered. We will obtain serial chemistries and supplement accordingly needed. We will follow with you. Irene Ambrose MD
[2017-03-18] MEDS: Sodium Chloride 0.9% 250 ML IV SCH (20:03)
[2017-03-18] MEDS: POLYETHYLENE GLYCOL 3350 17 GM/Dose PACKET PO SCH (21:08)
[2017-03-19] MEDS: Santyl Collagenase OINTMENT TOP SCH (05:55)
[2017-03-19] MEDS: Lactobacillus Acidophilus 500 MU Cap PO SCH ×2 (09:24→17:11)
[2017-03-19] MEDS: Multivitamin Vitamin B Complex (Nephro-Vite) Tab PO SCH (09:25)
[2017-03-19] MEDS: Pantoprazole 40 mg EC Tab PO SCH (09:25)
[2017-03-19] MEDS: Simethicone 80 mg Chewtab PO SCH ×3 (09:26→17:15)
[2017-03-19] MEDS: Ergocalciferol 50,000 Intl Units Cap PO SCH (09:30)
--- NOTE | 2017-03-19 15:01 | CP.PCM.PN ---
Subjective - Date & Time of Evaluation Date of Evaluation: 03/19/17 Time of Evaluation: 14:58 - Subjective Subjective: Dialysis note Hemodialysis starting via right subclavian catheter. Patient sitting on a wheelchair and appears to be comfortable. Completed physiotherapy session. Good appetite Physical exam Chest no rales Heart no rubs Abdomen soft Lab reviewed Patient and plan Anemia stable on EPO And this stage renal disease was dialysis tolerating very well. Status post amputation doing well on physiotherapy. Dialysis ordered discussed with the dialysis nurse at the bedside Sodium bath 138 Potassium past 2 mEq Bicarbonate bath 34 Ultrafiltration 3500 mL Patient tolerating dialysis. on antibiotics as per primary team. Objective - Vital Signs/Intake and Output Vital Signs (last 24 hours): Temp Pulse Resp BP Pulse Ox 98.3 F 102 H 21 134/54 L 100 03/19/17 08:28 03/19/17 09:26 03/19/17 08:28 03/19/17 09:26 03/19/17 08:28 Intake and Output: 03/19/17 03/19/17 06:59 18:59 Intake Total 580 Balance 580 - Medications Medications: Current Medications Acetaminophen (Tylenol 325mg Tab) 650 mg PO Q4 PRN PRN Reason: Pain, Mild (1-3) Acetaminophen (Tylenol 325mg Tab) 325 mg PO Q4 PRN PRN Reason: Fever >100.4 F Apixaban (Eliquis) 5 mg PO BID [facility] PRN Reason: Protocol Last Admin: 03/19/17 09:25 Dose: 5 mg Aspirin (Ecotrin) 81 mg PO DAILY [facility] Last Admin: 03/19/17 09:29 Dose: 81 mg Atorvastatin Calcium (Lipitor) 40 mg PO HS [facility] Last Admin: 03/18/17 21:06 Dose: 40 mg Calcitriol (Rocaltrol) 0.25 mcg PO DAILY [facility] Last Admin: 03/19/17 09:27 Dose: 0.25 mcg Calcium Carbonate (Oscal) 500 mg PO BID [facility] Last Admin: 03/19/17 09:25 Dose: 500 mg Collagenase (Santyl) 1 applic TOP 0600 [facility] Last Admin: 03/19/17 05:55 Dose: 1 applic Docusate Sodium (Colace) 100 mg PO BID [facility] Last Admin: 03/19/17 09:25 Dose: 100 mg Epoetin Tha (Procrit) 4,000 unit IV MWF@1630 [facility] Last Admin: 03/17/17 16:39 Dose: 4,000 unit Ergocalciferol (Drisdol 50,000 Intl Units Cap) 1 cap PO Q7D [facility] Last Admin: 03/19/17 09:30 Dose: 1 cap Fluconazole (Diflucan) 100 mg PO DAILY [facility] PRN Reason: Protocol Last Admin: 03/19/17 09:28 Dose: 100 mg Fluticasone Propionate (Flonase) 1 spr ALLAN BID PRN PRN Reason: Dry nasal passages Last Admin: 03/16/17 06:31 Dose: 1 spr Gabapentin (Neurontin) 300 mg PO TID [facility] Last Admin: 03/19/17 12:14 Dose: 300 mg Hydromorphone HCl (Dilaudid) 2 mg PO Q4 PRN PRN Reason: Pain scale 4-10 Last Admin: 03/19/17 09:22 Dose: 2 mg Vancomycin HCl 250 mg/ Sodium (Chloride) 100 mls @ 100 mls/hr IVPB MWF@2000 [facility] PRN Reason: Protocol Last Admin: 03/17/17 19:21 Dose: 100 mls/hr Gentamicin Sulfate 40 mg/ (Sodium Chloride) 101 mls @ 84.167 mls/hr IVPB MWF@ 2000 [facility] PRN Reason: Protocol Last Admin: 03/17/17 20:22 Dose: 84.167 mls/hr Ceftazidime/Avibactam 0.94 gm/ (Sodium Chloride) 100 mls @ 100 mls/hr IVPB MWF@ 2000 [facility] PRN Reason: Protocol Last Admin: 03/17/17 21:24 Dose: 100 mls/hr Sodium Chloride (Sodium Chloride 0.9%) 250 mls @ 10 mls/hr IV .Q24H [facility] Stop: 03/24/17 20:46 Last Admin: 03/18/17 20:03 Dose: 10 mls/hr Lactobacillus Acidophilus (Bacid Acidophilus) 1 cap PO BID [facility] Last Admin: 03/19/17 09:24 Dose: 1 cap Lamotrigine (Lamictal) 50 mg PO Q12 [facility] Last Admin: 03/19/17 09:27 Dose: 50 mg Lamotrigine (Lamictal) 100 mg PO Q12 [facility] Last Admin: 03/19/17 09:30 Dose: 100 mg Metoprolol Tartrate (Lopressor) 25 mg PO Q12 [facility] Last Admin: 03/19/17 09:26 Dose: 25 mg Ondansetron HCl (Zofran Inj) 4 mg IVP Q4 PRN PRN Reason: Nausea/Vomiting Pantoprazole Sodium (Protonix Ec Tab) 40 mg PO DAILY [facility] Last Admin: 03/19/17 09:25 Dose: 40 mg Polyethylene Glycol (Miralax) 17 gm PO DAILY@2200 [facility] Last Admin: 03/18/17 21:08 Dose: 17 gm Repaglinide (Prandin) 1 mg PO ACTID [facility] Last Admin: 03/19/17 12:14 Dose: 1 mg Sennosides (Senokot Tab) 17.2 mg PO HS [facility] Last Admin: 03/18/17 21:15 Dose: 17.2 mg Sevelamer HCl (Renagel) 1,600 mg PO TID [facility] Last Admin: 03/19/17 12:15 Dose: 1,600 mg Simethicone (Mylicon Chew Tab) 80 mg PO TID [facility] Last Admin: 03/19/17 12:15 Dose: 80 mg Triamcinolone Acetonide (Kenalog 0.1% In Orabase) 1 appl MM QID PRN PRN Reason: Toothache Vitamin B Complex/Vit C/Folic Acid (Nephro-Ajay) 1 tab PO DAILY [facility] Last Admin: 03/19/17 09:25 Dose: 1 tab - Labs Labs: 03/17/17 17:10 03/17/17 17:10 Assessment and Plan (1) CKD (chronic kidney disease) stage V requiring chronic dialysis Status: Acute (2) 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
--- NOTE | 2017-03-19 16:01 | PN ---
DATE: ENDOCRINOLOGY FOLLOWUP NOTE LOCATION: Room 625. SUBJECTIVE: This is a 46-year-old female with recent uncontrolled type 2 diabetes, currently with near optimal metabolic control, on low-dose oral hypoglycemic drug therapy as given. Her latest glucose levels have ranged from 146-173 mg/dL. Her latest chemistry showed a BUN of 99, sodium 142, potassium 5.7, chloride 104, CO2 of 20, glucose 111, and creatinine 8.7. So, at this time, we will continue the Prandin given as 1 mg p.o. t.i.d. before meals as ordered. We will obtain serial chemistries and supplement accordingly as needed. We will follow. Irene Ambrose MD
[2017-03-19] MEDS: Epoetin Alfa 4000 UNIT/ML Inj IV SCH (17:11)
[2017-03-19 18:17] LABS: BASO % 0.5 % (0.0-2.0); EOS # 0.2 K/uL (0.0-0.7); EOS % 4.7 % (0.0-4.0); HEMATOCRIT 33.1 % (34.0-47.0); LYMPH # 0.8 K/uL (1.0-4.3); LYMPH % 15.4 % (20.0-40.0); MEAN CELL VOLUME 92.3 fl (81.0-99.0); MEAN CORPUSCULAR HEMOGLOBIN 29.8 pg (27.0-31.0); MEAN CORPUSCULAR HGB CONC 32.3 g/dL (33.0-37.0); MEAN PLATELET VOLUME 9.3 fl (7.2-11.7); MONO # 0.2 K/uL (0.0-0.8); MONO % 3.8 % (0.0-10.0); NEUT # 3.7 K/uL (1.8-7.0); NEUT % 75.6 % (50.0-75.0); NRBC % 0.1 % (0.0-0.0); RED CELL DISTRIBUTION WIDTH 16.8 % (11.5-14.5); WHITE BLOOD COUNT 4.9 K/uL (4.8-10.8)
[2017-03-19 18:19] LABS: PARTIAL THROMBOPLASTIN TIME 37.8 Seconds (25.6-37.1)
[2017-03-19] MEDS: Vancomycin 250 MG in Sodium Chloride 0.9% 100 ML IVPB SCH (19:22)
[2017-03-19 19:47] LABS: BILIRUBIN,TOTAL 0.5 mg/dl (0.2-1.3); CALCIUM 8.8 mg/dL (8.4-10.2); POTASSIUM 3.5 MMOL/L (3.6-5.0); TOTAL PROTEIN 8.9 G/DL (6.3-8.2)
[2017-03-19] MEDS: Sodium Chloride 0.9% 250 ML IV SCH (20:33)
[2017-03-19] MEDS: POLYETHYLENE GLYCOL 3350 17 GM/Dose PACKET PO SCH (21:04)
[2017-03-20] MEDS: Santyl Collagenase OINTMENT TOP SCH (06:39)
[2017-03-20] MEDS: Lactobacillus Acidophilus 500 MU Cap PO SCH ×2 (08:39→17:38)
[2017-03-20] MEDS: Pantoprazole 40 mg EC Tab PO SCH (08:41)
[2017-03-20] MEDS: Multivitamin Vitamin B Complex (Nephro-Vite) Tab PO SCH (08:42)
[2017-03-20] MEDS: Simethicone 80 mg Chewtab PO SCH ×3 (08:43→17:35)
--- NOTE | 2017-03-20 15:16 | CP.PCM.PN ---
Subjective - Date & Time of Evaluation Date of Evaluation: 03/20/17 Time of Evaluation: 15:17 - Subjective Subjective: Patient has an upper left molar (#20) that is cracked its entire length and is painful. She was seen by Dr. Liz on 03/17, who confirmed that the patient needs to have the tooth extracted by an oral surgeon. Patient cannot take NSAIDs because of risk of coagulation. Moreover, the tooth, if not removed, will surely develop an abscess. So extraction is urgently needed, and because of the patient's fragile condition (severe vascular disease, brittle diabetes mellitus, end stage renal disease on dialysis, and coagulopathy (thrombophilia) , the surgery needs to be done as same day surgery in the hospital for the sake of safety. For this procedure, we will have to hold the Eliquis and aspirin for 48 hours , as per the entry level lab technician Dr. Evita Shepard. Wound care just performed by Shaye Terry. The right BK wound is now only 4cm long and 100% granulation tissue. The right patellar wound is also 4 cm in diameter (approx) and 90% granulation tissue. Current wound vac to BK wound and Santyl to patellar continues. DM is controlled on Prandin - Dr. Ambrose is managing this. Seizure disorder is controlled on Lamictal. ESRD - HD managed by Dr. Alta Guadarrama Coagulopathy due to Protein C & S deficiency managed with Eliquis and ASA. Increased flatulence and some leakage of stool. Will stop Miralax. Patient to report if no BM x 2 days. Objective - Vital Signs/Intake and Output Vital Signs (last 24 hours): Temp Pulse Resp BP Pulse Ox 98.2 F 97 H 79 H 150/76 98 03/20/17 08:51 03/20/17 08:51 03/20/17 08:51 03/20/17 08:51 03/20/17 08:51 Intake and Output: 03/20/17 03/20/17 06:59 18:59 Intake Total 470 Balance 470 - Medications Medications: Current Medications Acetaminophen (Tylenol 325mg Tab) 650 mg PO Q4 PRN PRN Reason: Pain, Mild (1-3) Acetaminophen (Tylenol 325mg Tab) 325 mg PO Q4 PRN PRN Reason: Fever >100.4 F Apixaban (Eliquis) 5 mg PO BID [facility] PRN Reason: Protocol Last Admin: 03/20/17 08:42 Dose: 5 mg Aspirin (Ecotrin) 81 mg PO DAILY [facility] Last Admin: 03/20/17 08:42 Dose: 81 mg Atorvastatin Calcium (Lipitor) 40 mg PO HS [facility] Last Admin: 03/19/17 21:05 Dose: 40 mg Calcitriol (Rocaltrol) 0.25 mcg PO DAILY [facility] Last Admin: 03/20/17 08:44 Dose: 0.25 mcg Calcium Carbonate (Oscal) 500 mg PO BID [facility] Last Admin: 03/20/17 08:45 Dose: 500 mg Collagenase (Santyl) 1 applic TOP 0600 [facility] Last Admin: 03/20/17 06:39 Dose: 1 applic Docusate Sodium (Colace) 100 mg PO BID [facility] Last Admin: 03/20/17 08:44 Dose: 100 mg Epoetin Tha (Procrit) 4,000 unit IV MWF@1630 [facility] Last Admin: 03/19/17 17:11 Dose: 4,000 unit Ergocalciferol (Drisdol 50,000 Intl Units Cap) 1 cap PO Q7D [facility] Last Admin: 03/19/17 09:30 Dose: 1 cap Fluconazole (Diflucan) 100 mg PO DAILY [facility] PRN Reason: Protocol Last Admin: 03/20/17 08:42 Dose: 100 mg Fluticasone Propionate (Flonase) 1 spr ALLAN BID PRN PRN Reason: Dry nasal passages Last Admin: 03/16/17 06:31 Dose: 1 spr Gabapentin (Neurontin) 300 mg PO TID [facility] Last Admin: 03/20/17 12:15 Dose: 300 mg Hydromorphone HCl (Dilaudid) 2 mg PO Q4 PRN PRN Reason: Pain scale 4-10 Last Admin: 03/20/17 13:08 Dose: 2 mg Vancomycin HCl 250 mg/ Sodium (Chloride) 100 mls @ 100 mls/hr IVPB MWF@2000 [facility] PRN Reason: Protocol Last Admin: 03/19/17 19:22 Dose: 100 mls/hr Gentamicin Sulfate 40 mg/ (Sodium Chloride) 101 mls @ 84.167 mls/hr IVPB MWF@ 2000 [facility] PRN Reason: Protocol Last Admin: 03/19/17 21:32 Dose: 84.167 mls/hr Ceftazidime/Avibactam 0.94 gm/ (Sodium Chloride) 100 mls @ 100 mls/hr IVPB MWF@ 2000 [facility] PRN Reason: Protocol Last Admin: 03/19/17 20:32 Dose: 100 mls/hr Sodium Chloride (Sodium Chloride 0.9%) 250 mls @ 10 mls/hr IV .Q24H [facility] Stop: 03/24/17 20:46 Last Admin: 03/19/17 20:33 Dose: 10 mls/hr Lactobacillus Acidophilus (Bacid Acidophilus) 1 cap PO BID [facility] Last Admin: 03/20/17 08:39 Dose: 1 cap Lamotrigine (Lamictal) 50 mg PO Q12 [facility] Last Admin: 03/20/17 08:46 Dose: 50 mg Lamotrigine (Lamictal) 100 mg PO Q12 [facility] Last Admin: 03/20/17 10:27 Dose: 100 mg Metoprolol Tartrate (Lopressor) 25 mg PO Q12 [facility] Last Admin: 03/20/17 08:43 Dose: 25 mg Ondansetron HCl (Zofran Inj) 4 mg IVP Q4 PRN PRN Reason: Nausea/Vomiting Pantoprazole Sodium (Protonix Ec Tab) 40 mg PO DAILY [facility] Last Admin: 03/20/17 08:41 Dose: 40 mg Polyethylene Glycol (Miralax) 17 gm PO DAILY@2200 [facility] Last Admin: 03/19/17 21:04 Dose: 17 gm Repaglinide (Prandin) 1 mg PO ACTID [facility] Last Admin: 03/20/17 12:15 Dose: 1 mg Sennosides (Senokot Tab) 17.2 mg PO HS [facility] Last Admin: 03/19/17 21:04 Dose: 17.2 mg Sevelamer HCl (Renagel) 1,600 mg PO TID [facility] Last Admin: 03/20/17 12:15 Dose: 1,600 mg Simethicone (Mylicon Chew Tab) 80 mg PO TID [facility] Last Admin: 03/20/17 12:17 Dose: 80 mg Triamcinolone Acetonide (Kenalog 0.1% In Orabase) 1 appl MM QID PRN PRN Reason: Toothache Vitamin B Complex/Vit C/Folic Acid (Nephro-Ajay) 1 tab PO DAILY [facility] Last Admin: 03/20/17 08:42 Dose: 1 tab - Labs Labs: 03/19/17 18:01 03/19/17 19:22 PT 13.7 Seconds (9.8-13.1) H 03/19/17 18:01 INR 1.2 (0.9-1.2) 03/19/17 18:01 APTT 37.8 Seconds (25.6-37.1) H 03/19/17 18:01 - Constitutional Appears: No Acute Distress, Other (L upper molar is uncomfortable and hurts if she forgets and chews on left side.) - Head Exam Head Exam: NORMAL INSPECTION - Eye Exam Eye Exam: Normal appearance - ENT Exam ENT Exam: Mucous Membranes Moist - Neck Exam Neck Exam: Normal Inspection Additional comments: R subclavian cathetr intact. - Respiratory Exam Respiratory Exam: Clear to Ausculation Bilateral, NORMAL BREATHING PATTERN - Cardiovascular Exam Cardiovascular Exam: REGULAR RHYTHM, +S1, +S2 - GI/Abdominal Exam GI & Abdominal Exam: Soft, Normal Bowel Sounds - Extremities Exam Additional comments: See subjective. L femoral PICC line intact. - Back Exam Back Exam: NORMAL INSPECTION - Neurological Exam Neurological Exam: Alert, Oriented x3 - Psychiatric Exam Psychiatric exam: Normal Affect, Normal Mood - Skin Skin Exam: Dry, Normal Color, Warm Assessment and Plan (1) Broken tooth injury Assessment & Plan: SEE SUBJECTIVE. Awaiting arrangements by oral surgeon. Status: Acute (2) Elevated liver enzymes Status: Acute (3) Status post below knee amputation of right lower extremity Assessment & Plan: Making nice progress in rehab, but is not yet safe to go home. See Dr. Daniels' s note - will need more time in [facility]. Status: Acute (4) Infection of amputation stump of right lower extremity Assessment & Plan: Making good progress. Vanco and gent trough levels OK. Continue present wound care and IV and po medications. Status: Acute (5) DM type 2 (diabetes mellitus, type 2) Assessment & Plan: Reasonably stable for now. Status: Chronic (6) ESRD (end stage renal disease) on dialysis Status: Chronic (7) Diabetic retinopathy Assessment & Plan: Follow up with Dr. Hernandez is due 03/25/17. Status: Acute (8) Seizure disorder Assessment & Plan: controlled. 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 Status: Acute
--- NOTE | 2017-03-20 20:31 | PN ---
ENDO FOLLOWUP NOTE LOCATION: In rehab room 625. SUBJECTIVE: This is a 46-year-old female with known history of type 2 diabetes, currently on an oral hypoglycemic drug regimen and is now being followed closely for metabolic management. Her glucose levels have ranged from 146 to 164 and 183 mg/dL. Her latest chemistry shows a BUN of 31, sodium 141, potassium 3.5, chloride 99, CO2 of 26, glucose 170, and creatinine 3.4. So, at this time, we will continue the same oral hypoglycemic drug regimen as given with Prandin, given as 1 mg p.o. t.i.d. before meals as ordered. She is also receiving IV antibiotics for ongoing management of osteomyelitis in the right below-knee amputation stump as noted. We will obtain serial chemistries and supplement accordingly as needed. We will follow this. Irene Ambrose MD
[2017-03-20] MEDS: Sodium Chloride 0.9% 250 ML IV SCH (21:17)
[2017-03-21] MEDS: Santyl Collagenase OINTMENT TOP SCH (06:19)
[2017-03-21] MEDS: Multivitamin Vitamin B Complex (Nephro-Vite) Tab PO SCH (08:03)
[2017-03-21] MEDS: Simethicone 80 mg Chewtab PO SCH ×3 (08:03→16:45)
[2017-03-21] MEDS: Lactobacillus Acidophilus 500 MU Cap PO SCH ×2 (08:12→16:43)
[2017-03-21] MEDS: Pantoprazole 40 mg EC Tab PO SCH (08:14)
--- NOTE | 2017-03-21 13:00 | CP.PCM.PN ---
Subjective - Date & Time of Evaluation Date of Evaluation: 03/21/17 Time of Evaluation: 12:57 - Subjective Subjective: Patient was seen in the acute rehabilitation receiving sedation of rehabilitation and exercise. Patient feeling good. Patient is in good mood. Physical exam Chest no rales. Heart no rubs. Abdomen soft. Extremities bilateral amputation below knee. Impression and plan Hemodialysis to be given shortly. I discuss it with the dialysis. Order in place. Ultrafiltration 3500 ml Potassium bath 2 mEq Bicarbonate bath every 4 The rest of the problem as already stated DM is controlled on Prandin - Seizure disorder is controlled on Lamictal. ESRD - HD MWF Coagulopathy due to Protein C & S deficiency managed with Eliquis and ASA. Objective - Vital Signs/Intake and Output Vital Signs (last 24 hours): Temp Pulse Resp BP Pulse Ox 97.2 F L 82 20 130/70 97 03/20/17 20:02 03/21/17 08:14 03/20/17 20:02 03/21/17 08:14 03/20/17 20:02 Intake and Output: 03/21/17 03/21/17 06:59 18:59 Intake Total 620 Balance 620 - Medications Medications: Current Medications Acetaminophen (Tylenol 325mg Tab) 650 mg PO Q4 PRN PRN Reason: Pain, Mild (1-3) Acetaminophen (Tylenol 325mg Tab) 325 mg PO Q4 PRN PRN Reason: Fever >100.4 F Apixaban (Eliquis) 5 mg PO BID [facility] PRN Reason: Protocol Last Admin: 03/21/17 08:03 Dose: 5 mg Aspirin (Ecotrin) 81 mg PO DAILY [facility] Last Admin: 03/21/17 08:13 Dose: 81 mg Atorvastatin Calcium (Lipitor) 40 mg PO HS [facility] Last Admin: 03/20/17 21:16 Dose: 40 mg Calcitriol (Rocaltrol) 0.25 mcg PO DAILY [facility] Last Admin: 03/21/17 08:04 Dose: 0.25 mcg Calcium Carbonate (Oscal) 500 mg PO BID [facility] Last Admin: 03/21/17 08:04 Dose: 500 mg Collagenase (Santyl) 1 applic TOP 0600 [facility] Last Admin: 03/21/17 06:19 Dose: 1 applic Docusate Sodium (Colace) 100 mg PO BID [facility] Last Admin: 03/21/17 08:03 Dose: 100 mg Epoetin Tha (Procrit) 4,000 unit IV MWF@1630 [facility] Last Admin: 03/19/17 17:11 Dose: 4,000 unit Ergocalciferol (Drisdol 50,000 Intl Units Cap) 1 cap PO Q7D [facility] Last Admin: 03/19/17 09:30 Dose: 1 cap Fluconazole (Diflucan) 100 mg PO DAILY [facility] PRN Reason: Protocol Last Admin: 03/21/17 08:04 Dose: 100 mg Fluticasone Propionate (Flonase) 1 spr ALLAN BID PRN PRN Reason: Dry nasal passages Last Admin: 03/16/17 06:31 Dose: 1 spr Gabapentin (Neurontin) 300 mg PO TID [facility] Last Admin: 03/21/17 12:31 Dose: 300 mg Hydromorphone HCl (Dilaudid) 2 mg PO Q4 PRN PRN Reason: Pain scale 4-10 Last Admin: 03/21/17 08:12 Dose: 2 mg Vancomycin HCl 250 mg/ Sodium (Chloride) 100 mls @ 100 mls/hr IVPB MWF@2000 [facility] PRN Reason: Protocol Last Admin: 03/19/17 19:22 Dose: 100 mls/hr Ceftazidime/Avibactam 0.94 gm/ (Sodium Chloride) 100 mls @ 100 mls/hr IVPB MWF@ 2000 [facility] PRN Reason: Protocol Last Admin: 03/19/17 20:32 Dose: 100 mls/hr Sodium Chloride (Sodium Chloride 0.9%) 250 mls @ 10 mls/hr IV .Q24H [facility] Stop: 03/24/17 20:46 Last Admin: 03/20/17 21:17 Dose: 10 mls/hr Gentamicin Sulfate 40 mg/ (Sodium Chloride) 51 mls @ 42.5 mls/hr IVPB MWF@2000 [facility] PRN Reason: Protocol Lactobacillus Acidophilus (Bacid Acidophilus) 1 cap PO BID [facility] Last Admin: 03/21/17 08:12 Dose: 1 cap Lamotrigine (Lamictal) 50 mg PO Q12 [facility] Last Admin: 03/21/17 08:12 Dose: 50 mg Lamotrigine (Lamictal) 100 mg PO Q12 [facility] Last Admin: 03/21/17 08:13 Dose: 100 mg Metoprolol Tartrate (Lopressor) 25 mg PO Q12 [facility] Last Admin: 03/21/17 08:14 Dose: 25 mg Ondansetron HCl (Zofran Inj) 4 mg IVP Q4 PRN PRN Reason: Nausea/Vomiting Pantoprazole Sodium (Protonix Ec Tab) 40 mg PO DAILY [facility] Last Admin: 03/21/17 08:14 Dose: 40 mg Repaglinide (Prandin) 1 mg PO ACTID [facility] Last Admin: 03/21/17 12:31 Dose: 1 mg Sennosides (Senokot Tab) 17.2 mg PO HS [facility] Last Admin: 03/20/17 21:17 Dose: 17.2 mg Sevelamer HCl (Renagel) 1,600 mg PO TID [facility] Last Admin: 03/21/17 12:31 Dose: 1,600 mg Simethicone (Mylicon Chew Tab) 80 mg PO TID [facility] Last Admin: 03/21/17 12:31 Dose: 80 mg Triamcinolone Acetonide (Kenalog 0.1% In Orabase) 1 appl MM QID PRN PRN Reason: Toothache Vitamin B Complex/Vit C/Folic Acid (Nephro-Ajay) 1 tab PO DAILY [facility] Last Admin: 03/21/17 08:03 Dose: 1 tab - Labs Labs: 03/19/17 18:01 03/19/17 19:22 PT 13.7 Seconds (9.8-13.1) H 03/19/17 18:01 INR 1.2 (0.9-1.2) 03/19/17 18:01 APTT 37.8 Seconds (25.6-37.1) H 03/19/17 18:01 Assessment and Plan (1) CKD (chronic kidney disease) stage V requiring chronic dialysis Status: Acute (2) 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
--- NOTE | 2017-03-21 15:10 | CP.PCM.PN ---
Subjective - Date & Time of Evaluation Date of Evaluation: 03/21/17 Time of Evaluation: 15:10 - Subjective Subjective: Patient seen in room watched her do a SBA transfer with beezie board pain is well controlled Objective - Vital Signs/Intake and Output Vital Signs (last 24 hours): Temp Pulse Resp BP Pulse Ox 97.2 F L 82 20 130/70 97 03/20/17 20:02 03/21/17 08:14 03/20/17 20:02 03/21/17 08:14 03/20/17 20:02 Intake and Output: 03/21/17 03/21/17 06:59 18:59 Intake Total 620 Balance 620 - Medications Medications: Current Medications Acetaminophen (Tylenol 325mg Tab) 650 mg PO Q4 PRN PRN Reason: Pain, Mild (1-3) Acetaminophen (Tylenol 325mg Tab) 325 mg PO Q4 PRN PRN Reason: Fever >100.4 F Apixaban (Eliquis) 5 mg PO BID [facility] PRN Reason: Protocol Last Admin: 03/21/17 08:03 Dose: 5 mg Aspirin (Ecotrin) 81 mg PO DAILY [facility] Last Admin: 03/21/17 08:13 Dose: 81 mg Atorvastatin Calcium (Lipitor) 40 mg PO HS [facility] Last Admin: 03/20/17 21:16 Dose: 40 mg Calcitriol (Rocaltrol) 0.25 mcg PO DAILY [facility] Last Admin: 03/21/17 08:04 Dose: 0.25 mcg Calcium Carbonate (Oscal) 500 mg PO BID [facility] Last Admin: 03/21/17 08:04 Dose: 500 mg Collagenase (Santyl) 1 applic TOP 0600 [facility] Last Admin: 03/21/17 06:19 Dose: 1 applic Docusate Sodium (Colace) 100 mg PO BID [facility] Last Admin: 03/21/17 08:03 Dose: 100 mg Epoetin Tha (Procrit) 4,000 unit IV MWF@1630 [facility] Last Admin: 03/19/17 17:11 Dose: 4,000 unit Ergocalciferol (Drisdol 50,000 Intl Units Cap) 1 cap PO Q7D [facility] Last Admin: 03/19/17 09:30 Dose: 1 cap Fluconazole (Diflucan) 100 mg PO DAILY [facility] PRN Reason: Protocol Last Admin: 03/21/17 08:04 Dose: 100 mg Fluticasone Propionate (Flonase) 1 spr ALLAN BID PRN PRN Reason: Dry nasal passages Last Admin: 03/16/17 06:31 Dose: 1 spr Gabapentin (Neurontin) 300 mg PO TID [facility] Last Admin: 03/21/17 12:31 Dose: 300 mg Hydromorphone HCl (Dilaudid) 2 mg PO Q4 PRN PRN Reason: Pain scale 4-10 Last Admin: 03/21/17 08:12 Dose: 2 mg Vancomycin HCl 250 mg/ Sodium (Chloride) 100 mls @ 100 mls/hr IVPB MWF@2000 [facility] PRN Reason: Protocol Last Admin: 03/19/17 19:22 Dose: 100 mls/hr Ceftazidime/Avibactam 0.94 gm/ (Sodium Chloride) 100 mls @ 100 mls/hr IVPB MWF@ 2000 [facility] PRN Reason: Protocol Last Admin: 03/19/17 20:32 Dose: 100 mls/hr Sodium Chloride (Sodium Chloride 0.9%) 250 mls @ 10 mls/hr IV .Q24H [facility] Stop: 03/24/17 20:46 Last Admin: 03/20/17 21:17 Dose: 10 mls/hr Gentamicin Sulfate 40 mg/ (Sodium Chloride) 51 mls @ 42.5 mls/hr IVPB MWF@2000 [facility] PRN Reason: Protocol Lactobacillus Acidophilus (Bacid Acidophilus) 1 cap PO BID [facility] Last Admin: 03/21/17 08:12 Dose: 1 cap Lamotrigine (Lamictal) 50 mg PO Q12 [facility] Last Admin: 03/21/17 08:12 Dose: 50 mg Lamotrigine (Lamictal) 100 mg PO Q12 [facility] Last Admin: 03/21/17 08:13 Dose: 100 mg Metoprolol Tartrate (Lopressor) 25 mg PO Q12 [facility] Last Admin: 03/21/17 08:14 Dose: 25 mg Ondansetron HCl (Zofran Inj) 4 mg IVP Q4 PRN PRN Reason: Nausea/Vomiting Pantoprazole Sodium (Protonix Ec Tab) 40 mg PO DAILY [facility] Last Admin: 03/21/17 08:14 Dose: 40 mg Repaglinide (Prandin) 1 mg PO ACTID [facility] Last Admin: 03/21/17 12:31 Dose: 1 mg Sennosides (Senokot Tab) 17.2 mg PO HS [facility] Last Admin: 03/20/17 21:17 Dose: 17.2 mg Sevelamer HCl (Renagel) 1,600 mg PO TID [facility] Last Admin: 03/21/17 12:31 Dose: 1,600 mg Simethicone (Mylicon Chew Tab) 80 mg PO TID [facility] Last Admin: 03/21/17 12:31 Dose: 80 mg Triamcinolone Acetonide (Kenalog 0.1% In Orabase) 1 appl MM QID PRN PRN Reason: Toothache Vitamin B Complex/Vit C/Folic Acid (Nephro-Ajay) 1 tab PO DAILY [facility] Last Admin: 03/21/17 08:03 Dose: 1 tab - Labs Labs: 03/19/17 18:01 03/19/17 19:22 PT 13.7 Seconds (9.8-13.1) H 03/19/17 18:01 INR 1.2 (0.9-1.2) 03/19/17 18:01 APTT 37.8 Seconds (25.6-37.1) H 03/19/17 18:01
--- NOTE | 2017-03-21 15:31 | CP.PCM.PN ---
Subjective - Date & Time of Evaluation Date of Evaluation: 03/21/17 Time of Evaluation: 15:28 - Subjective Subjective: Dr. Erickson plans extraction of broken molar #20 on Mon, 03/24 evening as a SDS (in OR) proceure. We will hold Eliquis after morning dose tomorrow. We will hold aspirin starting now. Blood ordered for CBC, CMP, and PT/PTT. Electrocardiogram ordered. Patient is having hemodialysis now. No fevers or dyspnea or chest pain. VS and Physical exam are stable. I will see patient tomorrow evening to clear her for oral surgery on 03/24. Objective - Vital Signs/Intake and Output Vital Signs (last 24 hours): Temp Pulse Resp BP Pulse Ox 97.2 F L 82 20 130/70 97 03/20/17 20:02 03/21/17 08:14 03/20/17 20:02 03/21/17 08:14 03/20/17 20:02 Intake and Output: 03/21/17 03/21/17 06:59 18:59 Intake Total 620 Balance 620 - Medications Medications: Current Medications Acetaminophen (Tylenol 325mg Tab) 650 mg PO Q4 PRN PRN Reason: Pain, Mild (1-3) Acetaminophen (Tylenol 325mg Tab) 325 mg PO Q4 PRN PRN Reason: Fever >100.4 F Apixaban (Eliquis) 5 mg PO BID [facility] PRN Reason: Protocol Last Admin: 03/21/17 08:03 Dose: 5 mg Aspirin (Ecotrin) 81 mg PO DAILY [facility] Last Admin: 03/21/17 08:13 Dose: 81 mg Atorvastatin Calcium (Lipitor) 40 mg PO HS [facility] Last Admin: 03/20/17 21:16 Dose: 40 mg Calcitriol (Rocaltrol) 0.25 mcg PO DAILY [facility] Last Admin: 03/21/17 08:04 Dose: 0.25 mcg Calcium Carbonate (Oscal) 500 mg PO BID [facility] Last Admin: 03/21/17 08:04 Dose: 500 mg Collagenase (Santyl) 1 applic TOP 0600 [facility] Last Admin: 03/21/17 06:19 Dose: 1 applic Docusate Sodium (Colace) 100 mg PO BID [facility] Last Admin: 03/21/17 08:03 Dose: 100 mg Epoetin Tha (Procrit) 4,000 unit IV MWF@1630 [facility] Last Admin: 03/19/17 17:11 Dose: 4,000 unit Ergocalciferol (Drisdol 50,000 Intl Units Cap) 1 cap PO Q7D [facility] Last Admin: 03/19/17 09:30 Dose: 1 cap Fluconazole (Diflucan) 100 mg PO DAILY [facility] PRN Reason: Protocol Last Admin: 03/21/17 08:04 Dose: 100 mg Fluticasone Propionate (Flonase) 1 spr ALLAN BID PRN PRN Reason: Dry nasal passages Last Admin: 03/16/17 06:31 Dose: 1 spr Gabapentin (Neurontin) 300 mg PO TID [facility] Last Admin: 03/21/17 12:31 Dose: 300 mg Hydromorphone HCl (Dilaudid) 2 mg PO Q4 PRN PRN Reason: Pain scale 4-10 Last Admin: 03/21/17 08:12 Dose: 2 mg Vancomycin HCl 250 mg/ Sodium (Chloride) 100 mls @ 100 mls/hr IVPB MWF@2000 [facility] PRN Reason: Protocol Last Admin: 03/19/17 19:22 Dose: 100 mls/hr Ceftazidime/Avibactam 0.94 gm/ (Sodium Chloride) 100 mls @ 100 mls/hr IVPB MWF@ 2000 [facility] PRN Reason: Protocol Last Admin: 03/19/17 20:32 Dose: 100 mls/hr Sodium Chloride (Sodium Chloride 0.9%) 250 mls @ 10 mls/hr IV .Q24H [facility] Stop: 03/24/17 20:46 Last Admin: 03/20/17 21:17 Dose: 10 mls/hr Gentamicin Sulfate 40 mg/ (Sodium Chloride) 51 mls @ 42.5 mls/hr IVPB MWF@2000 [facility] PRN Reason: Protocol Lactobacillus Acidophilus (Bacid Acidophilus) 1 cap PO BID [facility] Last Admin: 03/21/17 08:12 Dose: 1 cap Lamotrigine (Lamictal) 50 mg PO Q12 [facility] Last Admin: 03/21/17 08:12 Dose: 50 mg Lamotrigine (Lamictal) 100 mg PO Q12 [facility] Last Admin: 03/21/17 08:13 Dose: 100 mg Metoprolol Tartrate (Lopressor) 25 mg PO Q12 [facility] Last Admin: 03/21/17 08:14 Dose: 25 mg Ondansetron HCl (Zofran Inj) 4 mg IVP Q4 PRN PRN Reason: Nausea/Vomiting Pantoprazole Sodium (Protonix Ec Tab) 40 mg PO DAILY [facility] Last Admin: 03/21/17 08:14 Dose: 40 mg Repaglinide (Prandin) 1 mg PO ACTID [facility] Last Admin: 03/21/17 12:31 Dose: 1 mg Sennosides (Senokot Tab) 17.2 mg PO HS [facility] Last Admin: 03/20/17 21:17 Dose: 17.2 mg Sevelamer HCl (Renagel) 1,600 mg PO TID [facility] Last Admin: 03/21/17 12:31 Dose: 1,600 mg Simethicone (Mylicon Chew Tab) 80 mg PO TID [facility] Last Admin: 03/21/17 12:31 Dose: 80 mg Triamcinolone Acetonide (Kenalog 0.1% In Orabase) 1 appl MM QID PRN PRN Reason: Toothache Vitamin B Complex/Vit C/Folic Acid (Nephro-Ajay) 1 tab PO DAILY [facility] Last Admin: 03/21/17 08:03 Dose: 1 tab - Labs Labs: 03/19/17 18:01 03/19/17 19:22 PT 13.7 Seconds (9.8-13.1) H 03/19/17 18:01 INR 1.2 (0.9-1.2) 03/19/17 18:01 APTT 37.8 Seconds (25.6-37.1) H 03/19/17 18:01 Assessment and Plan (1) Broken tooth injury Status: Acute (2) Elevated liver enzymes Status: Acute (3) Status post below knee amputation of right lower extremity Status: Acute (4) Infection of amputation stump of right lower extremity Status: Acute (5) DM type 2 (diabetes mellitus, type 2) Status: Chronic (6) ESRD (end stage renal disease) on dialysis Status: Chronic (7) Diabetic retinopathy Status: Acute (8) Seizure disorder Status: Acute (9) Gallstones without obstruction of gallbladder Status: Acute (10) Coagulopathy Status: Chronic (11) 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
[2017-03-21 16:02] LABS: BASO # 0.1 K/uL (0.0-0.2); BASO % 0.8 % (0.0-2.0); EOS # 0.4 K/uL (0.0-0.7); EOS % 6.2 % (0.0-4.0); HEMATOCRIT 34.3 % (34.0-47.0); LYMPH # 1.2 K/uL (1.0-4.3); LYMPH % 17.6 % (20.0-40.0); MEAN CORPUSCULAR HEMOGLOBIN 29.6 pg (27.0-31.0); MEAN CORPUSCULAR HGB CONC 31.5 g/dL (33.0-37.0); MEAN PLATELET VOLUME 9.7 fl (7.2-11.7); MONO # 0.5 K/uL (0.0-0.8); MONO % 6.9 % (0.0-10.0); NEUT # 4.7 K/uL (1.8-7.0); NEUT % 68.5 % (50.0-75.0); WHITE BLOOD COUNT 6.8 K/uL (4.8-10.8)
[2017-03-21 16:15] LABS: ALB/GLOB RATIO 1.1 (1.0-2.1); BILIRUBIN,TOTAL 0.4 mg/dl (0.2-1.3); CALCIUM 9.3 mg/dL (8.4-10.2); POTASSIUM 4.6 MMOL/L (3.6-5.0); TOTAL PROTEIN 8.7 G/DL (6.3-8.2)
[2017-03-21 16:32] LABS: PARTIAL THROMBOPLASTIN TIME 37.4 Seconds (25.6-37.1)
[2017-03-21] MEDS: Epoetin Alfa 4000 UNIT/ML Inj IV SCH (16:42)
[2017-03-21] MEDS: Gentamicin 40 MG in Sodium Chloride 0.9% 50 ML IVPB SCH (19:23)
[2017-03-21] MEDS: Sodium Chloride 0.9% 250 ML IV SCH (20:09)
[2017-03-21] MEDS: Vancomycin 250 MG in Sodium Chloride 0.9% 100 ML IVPB SCH (20:19)
--- NOTE | 2017-03-21 22:46 | PN ---
ENDO FOLLOWUP NOTE DATE: Room #625. SUBJECTIVE: This is a 46-year-old female with recent uncontrolled type 2 diabetes, now being followed closely for metabolic management. LABORATORY DATA: Her glycemic levels are fluctuating but improved, and the glucose values today have ranged from 131 to 164 and 209 mg/dL. Her latest chemistry showed a BUN of 31, sodium 141, potassium 3.5, chloride 99, CO2 of 26, glucose 170, and creatinine 3.4. ASSESSMENT AND PLAN: So at this time we will continue the low-dose oral hypoglycemic drug therapy as given with Prandin given as 1 mg p.o. t.i.d. before meals as ordered. We will obtain serial chemistries and supplement accordingly as needed. We will follow. Irene Ambrose MD
[2017-03-22] MEDS: Santyl Collagenase OINTMENT TOP SCH (05:48)
[2017-03-22] MEDS: Multivitamin Vitamin B Complex (Nephro-Vite) Tab PO SCH (08:14)
[2017-03-22] MEDS: Simethicone 80 mg Chewtab PO SCH ×3 (08:14→17:21)
[2017-03-22] MEDS: Pantoprazole 40 mg EC Tab PO SCH (08:14)
[2017-03-22] MEDS: Lactobacillus Acidophilus 500 MU Cap PO SCH ×2 (08:19→17:18)
--- NOTE | 2017-03-22 15:01 | PN ---
ENDOCRINOLOGY FOLLOWUP NOTE DATE: LOCATION: Room 625. This is a 46-year-old female with recent uncontrolled type 2 diabetes, now being followed closely for metabolic management. Her glycemic levels are fluctuating at this time and ranging from 143-202 mg/dL. Her latest chemistry showed a BUN of 59, sodium 141, potassium 4.6, chloride 101, CO2 of 21, glucose 149 and creatinine 6.1. So at this time, we will continue the Prandin given as 1 mg p.o. t.i.d. before meals, but if hyperglycemic levels persists, then we will titrate higher dose regimen accordingly. We will follow. Irene Ambrose MD
--- NOTE | 2017-03-22 15:46 | RAD ---
PROCEDURE: CHEST RADIOGRAPH, 1 VIEW HISTORY: Pre-op COMPARISON: Comparison chest 12/26/2016. FINDINGS: Re- demonstrated is in situ right is subclavian dialysis catheter with tip in the SVC/RA junction. LUNGS: Poor inspiration with low lung volumes, crowded bronchovascular markings and mild bibasilar atelectasis. PLEURA: Questionable small bilateral effusions. No evidence of pneumothorax. CARDIOVASCULAR: Heart remains upper limits of normal/ borderline enlarged unchanged. Re- demonstrated is an endovascular radiopaque mesh stent left axillary and subclavian region OSSEOUS STRUCTURES: No significant abnormalities. VISUALIZED UPPER ABDOMEN: Normal. OTHER FINDINGS: None. IMPRESSION: Poor inspiration with low lung volumes, crowded bronchovascular markings and mild bibasilar atelectasis. Questionable small bilateral effusions.
--- NOTE | 2017-03-22 18:28 | CARD ---
APPROVED REPORT EKG Measurement Heart [id number] <Conclusion> Poor data quality, interpretation may be adversely affected Normal sinus rhythm Anterior infarct, age undetermined Prolonged QT Abnormal ECG
[2017-03-22] MEDS: Sodium Chloride 0.9% 250 ML IV SCH (20:31)
[2017-03-23] MEDS: Santyl Collagenase OINTMENT TOP SCH (07:08)
[2017-03-23] MEDS: Simethicone 80 mg Chewtab PO SCH ×3 (08:42→16:42)
[2017-03-23] MEDS: Lactobacillus Acidophilus 500 MU Cap PO SCH ×2 (08:42→16:42)
[2017-03-23] MEDS: Multivitamin Vitamin B Complex (Nephro-Vite) Tab PO SCH (08:43)
[2017-03-23] MEDS: Pantoprazole 40 mg EC Tab PO SCH (08:43)
--- NOTE | 2017-03-23 10:08 | PN ---
ENDO FOLLOWUP NOTE DATE: LOCATION: Room 625. SUBJECTIVE: This is a 46-year-old female with recent uncontrolled type 2 insulin-requiring diabetes, now taken off all insulin therapy and doing very well on just oral hypoglycemic therapy as given. Her glucose levels today have ranged from 117-119 mg/dL. LABORATORY DATA: Her latest chemistry showed a BUN of 59, sodium 141, potassium 4.6, chloride 101, CO2 21, glucose 149, and creatinine 6.1. PLAN: So at this time, we will continue once again the same low-dose oral hypoglycemic drug therapy as given with Prandin given as 1 mg p.o. t.i.d. before meals as ordered. We will titrate incremental as indicated to optimize metabolic control. We will obtain serial chemistries and supplement accordingly as needed. We will follow. Irene Ambrose MD
--- NOTE | 2017-03-23 12:18 | CP.PCM.PN ---
Subjective - Date & Time of Evaluation Date of Evaluation: 03/23/17 Time of Evaluation: 12:16 - Subjective Subjective: Patient is scheduled to have extraction of left upper molar tomorrow evening 6: 30PM in [facility] by Dr. Ronny Erickson because the tooth is cracked through and through. Eliquis has been on hold following the 03/22 am dose. Aspirin has been on hold since 03/21. Nursing informed me that anesthesiology ordered a chest xray. This was done in a wheelchair, and patient says she did try to take a deep breath. However, the xray is read as poor inspiration with low lung volumes, crowded bronchovascular markings, mild basilar atelectasis and questionable bilateral effusiions. I spoke with Dr. Medina, who read the CXR, and he stands by his reading. I will ask Dr. Flores to re-evaluate the patient so as to clear her for the surgery. The ECG shows NSR, possible anterior infarct - age undetermined, and mildly prolonged QTc of 508. This is essentially unchanged from 08/28/16 when the QTc was just under 500. I will ask Dr. Richard Shepard to re-evaluate the patient so as to cler her for surgery. Hypertension/tachycardia have been controlled nicely on metoprolol tartrate bid. Patient continues on hemodialysis q MWF and will be dialyzed early tomorrow. 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 The right BK amputation done in September 2016 and surgically revised twice continues to heal with wound vac and the right patella is healing with Santyl debridement. Diabetes mellitus has been controlled on po Prandin plus insulin coverage. As per anesthesiology the patient may have full liquid diet for breakfast and then will npo tomorrow. I will order IV D5/0.45 NSS at 50 cc/hr starting after breakfast. Seizure disorder is controlled on lamictal. The plan is to give all am medications except for Eliquis and aspirin, which are on hold. We will allow her to eat breakfast and then make her npo. The patient was scheduled to see Dr. Hernandez, welder gas, on 03/25 for follow-up post LASER treatment of diabetic retinopathy in both eyes, but I am going to postpone this. It is expected that the patient will go to [facility] on 03/26 for continued rehabilitation. Objective - Vital Signs/Intake and Output Vital Signs (last 24 hours): Temp Pulse Resp BP Pulse Ox 97.5 F L 95 H 19 154/59 H 96 03/23/17 10:00 03/23/17 10:00 03/23/17 10:00 03/23/17 10:00 03/23/17 10:00 Intake and Output: 03/23/17 03/23/17 06:59 18:59 Intake Total 370 Balance 370 - Medications Medications: Current Medications Acetaminophen (Tylenol 325mg Tab) 650 mg PO Q4 PRN PRN Reason: Pain, Mild (1-3) Acetaminophen (Tylenol 325mg Tab) 325 mg PO Q4 PRN PRN Reason: Fever >100.4 F Apixaban (Eliquis) 5 mg PO BID [facility] PRN Reason: Protocol Last Admin: 03/22/17 08:17 Dose: 5 mg Aspirin (Ecotrin) 81 mg PO DAILY [facility] Last Admin: 03/21/17 08:13 Dose: 81 mg Atorvastatin Calcium (Lipitor) 40 mg PO HS [facility] Last Admin: 03/22/17 21:37 Dose: 40 mg Calcitriol (Rocaltrol) 0.25 mcg PO DAILY [facility] Last Admin: 03/23/17 08:47 Dose: 0.25 mcg Calcium Carbonate (Oscal) 500 mg PO BID [facility] Last Admin: 03/23/17 08:43 Dose: 500 mg Collagenase (Santyl) 1 applic TOP 0600 [facility] Last Admin: 03/23/17 07:08 Dose: 1 applic Docusate Sodium (Colace) 100 mg PO BID [facility] Last Admin: 03/23/17 08:42 Dose: 100 mg Epoetin Tha (Procrit) 4,000 unit IV MWF@1630 [facility] Last Admin: 03/21/17 16:42 Dose: 4,000 unit Ergocalciferol (Drisdol 50,000 Intl Units Cap) 1 cap PO Q7D [facility] Last Admin: 03/19/17 09:30 Dose: 1 cap Fluconazole (Diflucan) 100 mg PO DAILY [facility] PRN Reason: Protocol Last Admin: 03/23/17 08:43 Dose: 100 mg Fluticasone Propionate (Flonase) 1 spr ALLAN BID PRN PRN Reason: Dry nasal passages Last Admin: 03/16/17 06:31 Dose: 1 spr Gabapentin (Neurontin) 300 mg PO TID [facility] Last Admin: 03/23/17 08:43 Dose: 300 mg Hydromorphone HCl (Dilaudid) 2 mg PO Q4 PRN PRN Reason: Pain scale 4-10 Last Admin: 03/22/17 17:18 Dose: 2 mg Vancomycin HCl 250 mg/ Sodium (Chloride) 100 mls @ 100 mls/hr IVPB MWF@2000 [facility] PRN Reason: Protocol Last Admin: 03/21/17 20:19 Dose: 100 mls/hr Ceftazidime/Avibactam 0.94 gm/ (Sodium Chloride) 100 mls @ 100 mls/hr IVPB MWF@ 2000 [facility] PRN Reason: Protocol Last Admin: 03/21/17 21:37 Dose: 100 mls/hr Sodium Chloride (Sodium Chloride 0.9%) 250 mls @ 10 mls/hr IV .Q24H [facility] Stop: 03/24/17 20:46 Last Admin: 03/22/17 20:31 Dose: 10 mls/hr Gentamicin Sulfate 40 mg/ (Sodium Chloride) 51 mls @ 42.5 mls/hr IVPB MWF@2000 [facility] PRN Reason: Protocol Last Admin: 03/21/17 19:23 Dose: 42.5 mls/hr Lactobacillus Acidophilus (Bacid Acidophilus) 1 cap PO BID [facility] Last Admin: 03/23/17 08:42 Dose: 1 cap Lamotrigine (Lamictal) 50 mg PO Q12 [facility] Last Admin: 03/23/17 08:44 Dose: 50 mg Lamotrigine (Lamictal) 100 mg PO Q12 [facility] Last Admin: 03/23/17 08:44 Dose: 100 mg Metoprolol Tartrate (Lopressor) 25 mg PO Q12 [facility] Last Admin: 03/23/17 08:45 Dose: 25 mg Ondansetron HCl (Zofran Inj) 4 mg IVP Q4 PRN PRN Reason: Nausea/Vomiting Pantoprazole Sodium (Protonix Ec Tab) 40 mg PO DAILY [facility] Last Admin: 03/23/17 08:43 Dose: 40 mg Repaglinide (Prandin) 1 mg PO ACTID [facility] Last Admin: 03/23/17 11:44 Dose: 1 mg Sennosides (Senokot Tab) 17.2 mg PO HS [facility] Last Admin: 03/22/17 21:37 Dose: 17.2 mg Sevelamer HCl (Renagel) 1,600 mg PO TID [facility] Last Admin: 03/23/17 08:43 Dose: 1,600 mg Simethicone (Mylicon Chew Tab) 80 mg PO TID [facility] Last Admin: 03/23/17 08:42 Dose: 80 mg Triamcinolone Acetonide (Kenalog 0.1% In Orabase) 1 appl MM QID PRN PRN Reason: Toothache Vitamin B Complex/Vit C/Folic Acid (Nephro-Ajay) 1 tab PO DAILY [facility] Last Admin: 03/23/17 08:43 Dose: 1 tab - Labs Labs: 03/21/17 15:50 03/21/17 15:50 PT 14.8 Seconds (9.8-13.1) H 03/21/17 15:50 INR 1.3 (0.9-1.2) H 03/21/17 15:50 APTT 37.4 Seconds (25.6-37.1) H 03/21/17 15:50 - Constitutional Appears: No Acute Distress - Head Exam Head Exam: NORMAL INSPECTION - Eye Exam Eye Exam: Normal appearance - ENT Exam ENT Exam: Mucous Membranes Moist - Neck Exam Neck Exam: Normal Inspection Additional comments: Right subclavian Permacath intact. - Respiratory Exam Respiratory Exam: Clear to Ausculation Bilateral, NORMAL BREATHING PATTERN - Cardiovascular Exam Cardiovascular Exam: REGULAR RHYTHM, +S1, +S2 - GI/Abdominal Exam GI & Abdominal Exam: Soft, Normal Bowel Sounds - Extremities Exam Additional comments: Dressings intact R BK wound vac and right patellar wound. PICC line left femoral vein - intact. - Back Exam Back Exam: NORMAL INSPECTION - Neurological Exam Neurological Exam: Alert, Oriented x3 Additional comments: S/P Bilateral BK amputations - Psychiatric Exam Psychiatric exam: Normal Affect, Normal Mood - Skin Skin Exam: Dry, Normal Color, Warm Assessment and Plan (1) Broken tooth injury Assessment & Plan: For extraction in OR tomorrow evening. Status: Acute (2) Elevated liver enzymes Assessment & Plan: stable Status: Acute (3) Status post below knee amputation of right lower extremity Assessment & Plan: Continues in acute rehab - for transfer to [facility] for subacute rehab to continue. Status: Acute (4) Infection of amputation stump of right lower extremity Assessment & Plan: Continue 3 iv and 1 po antibiotic. Continue wound vac for BK site and daily Santyl chemical debridement for right patella. Status: Acute (5) DM type 2 (diabetes mellitus, type 2) Assessment & Plan: SEE SUBJECTIVE. Status: Chronic (6) ESRD (end stage renal disease) on dialysis Assessment & Plan: STABLE, managed by Dr. Alta Guadarrama Status: Chronic (7) Diabetic retinopathy Status: Acute (8) Seizure disorder Assessment & Plan: controlled on Lamictal. Status: Acute (9) Gallstones without obstruction of gallbladder Status: Acute (10) Coagulopathy Assessment & Plan: As soon as hemostasis as been assured, hopefully by 03/25, we must restart the Eliquis and aspirin. 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 SHE HAS NO FEVER OR RESPIRATORY SYMPTOMS OR FINDINGS. THE MILDLY PROLONGED QTc ON ECG IS NOT NEW. SHE HAS NO CHEST PAIN OR CARDIAC CHANGES ON EXAM. I CONSIDER THAT THE PATIENT IS CLINICALLY STABLE FOR THE PLANNED ORAL SURGERY TOMORROW EVENING. PULMONARY AND ACTUARIAL DIRECTOR TO ADD THEIR NOTES.
[2017-03-23] MEDS: Sodium Chloride 0.9% 250 ML IV SCH (20:36)
[2017-03-24] MEDS: Santyl Collagenase OINTMENT TOP SCH (07:09)
[2017-03-24] MEDS: Lactobacillus Acidophilus 500 MU Cap PO SCH ×2 (08:22→17:01)
[2017-03-24] MEDS: Multivitamin Vitamin B Complex (Nephro-Vite) Tab PO SCH (08:24)
[2017-03-24] MEDS: Pantoprazole 40 mg EC Tab PO SCH (08:24)
[2017-03-24] MEDS: Simethicone 80 mg Chewtab PO SCH ×3 (08:26→17:01)
--- NOTE | 2017-03-24 08:52 | CP.PCM.CON ---
History of Present Illness - History of Present Illness History of Present Illness: This 46-year-old female is well-known to me, having required evaluation in the course of prolonged stay in the hospital from August of this year to February of this year. The patient has type 1 diabetes and now requires insulin for management of her hyperglycemia. 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 The patient has a long history of chronic renal failure requiring hemodialysis 3 times a week and has had multiple shunts on both upper extremities as well as indwelling internal jugular catheters over the last multiple years. She has had bouts of supraventricular tachycardia 10. Which during August required urgent transfer to intensive care unit. She has hypercoagulable state and HIT requiring chronic use of Eliquis which has been withheld for couple of days. She has never suffered a myocardial infarction and has never experienced congestive cardiac failure. The patient use to develop hypotension during hemodialysis as a consequence of left ventricular diastolic dysfunction with marked dependence of intravascular volume for maintenance of cardiac output. The patient is scheduled to undergo extraction of carious molar tooth under general anesthesia today. This consultation was requested because of an abnormal electrocardiogram taken couple of days back which shows a pattern suggestive of an old anterior wall myocardial infarction because of poor progression of R wave, which was seen on earlier electro-cardiogram has well as a consequence of LVH. Also there was a prolonged QT interval of 508 ms. Physical examination shows a pleasant -[place]izen [place] female who is lying virtually flat in bed breathing comfortably at 14-16 breaths per minute and can carry on conversation. He was fully alert awake and coherent and recognized me radially when I entered the room. She was afebrile with a pulse rate of 78 bpm and regular and a blood pressure taken in the forearm which was 134/70 mmHg. Jugular venous pressure could not be evaluated because of a short thick neck. The right lower extremity had an amputation. Her apex was not palpable. The first and second heart sounds were normal there was no murmur or gallop. There were no rales. Her electrocardiogram showed sinus rhythm with poor progression of R wave from V2 to V4, a pattern seen on earlier electrocardiograms as well. Review of her echocardiogram showed no evidence of anterior wall motion abnormality. The left ventricular systolic function appeared preserved. Review off her earlier electrocardiograms also show a QT interval as much as 527 ms. This is most likely due to electrolyte and pH disturbances associated with chronic renal failure chronic hemodialysis as well as multiple medications that patient requires. During periods of prolonged ICU monitoring she has had no tendency for ventricular ectopic arrhythmias. Impression: Type 1 diabetes with diffuse vasculitis, hypertension and chronic renal failure. The patient is stable from cardiovascular point of view to proceed with general anesthesia for this low risk procedure. Past Patient History - Tetanus Immunizations Tetanus Immunization: Up to Date - Past Medical History & Family History Past Medical History?: Yes - Past Social History Smoking Status: Never Smoked Alcohol: None Drugs: Denies Home Situation {Lives}: With Family - CARDIAC Hx Hypercholesterolemia: Yes Hx Hypertension: Yes - PULMONARY Hx Respiratory Disorders: Yes Hx Pneumonia: Yes - NEUROLOGICAL Hx Neurological Disorder: Yes Hx Seizures: Yes (see hpi) - HEENT Hx HEENT Problems: Yes Hx Cataracts: Yes Other/Comment: Diabetic retinopathy severe - LASER treatments January 2017 - Dr. Hernandez - RENAL Hx Chronic Kidney Disease: Yes Hx Dialysis: Yes Date of Last Dialysis Treatment: 02/24/17 - ENDOCRINE/METABOLIC Hx Diabetes Mellitus Type 2: Yes - HEMATOLOGICAL/ONCOLOGICAL Hx Blood Disorders: Yes (THROMBOPHILIA - Heparin Ab's, Protein C & S deficiencies.) Hx AIDS: No Hx Anemia: Yes Hx Blood Transfusions: Yes Hx Blood Transfusion Reaction: No Hx Hepatitis B: Yes (Ab positive) Hx Hepatitis C: No Hx Human Immunodeficiency Virus (HIV): No - INTEGUMENTARY Hx Dermatological Problems: No - MUSCULOSKELETAL/RHEUMATOLOGICAL Hx Falls: No - GASTROINTESTINAL Hx Gastrointestinal Disorders: Yes Other/Comment: hx of anal fissure - GENITOURINARY/GYNECOLOGICAL Hx Genitourinary Disorders: Yes Other/Comment: Menorrhagia - PSYCHIATRIC Hx Substance Use: No - SURGICAL HISTORY Hx Surgeries: Yes Hx Amputation: Yes Hx Arteriovenous Shunt: Yes Hx Vascular Access Device: Yes (R subclavian Permacath) Other/Comment: INSERTION OF DIALYSIS CATH;CATARACT-BOTH EYES;LEFT BELOW KNEE AMPUTATION, RIGHT BK AMPUTATION, MULTIPLE FINGER AMPUTATIONS - ANESTHESIA Hx Anesthesia: Yes Hx Anesthesia Reactions: No Hx Malignant Hyperthermia: No Has any member of the family had a problem w/ anesthesia?: No Meds Allergies/Adverse Reactions: Allergies Allergy/AdvReac Type Severity Reaction Status Date / Time heparin AdvReac Severe ANAPHYLAXIS Verified 02/09/17 17:46 NSAIDS (Non-Steroidal AdvReac Severe ANAPHYLAXIS Verified 03/24/17 08:37 Anti-Inflamma Beta-Blockers AdvReac Mild none of Verified 12/29/16 10:25 (Beta-Adrenergic Bloc the listed reactions tramadol [From Ultram] AdvReac Unknown potential Verified 09/18/16 10:41 vasoconstriction - Medications Medications: Current Medications Acetaminophen (Tylenol 325mg Tab) 650 mg PO Q4 PRN PRN Reason: Pain, Mild (1-3) Acetaminophen (Tylenol 325mg Tab) 325 mg PO Q4 PRN PRN Reason: Fever >100.4 F Apixaban (Eliquis) 5 mg PO BID [facility] PRN Reason: Protocol Last Admin: 03/22/17 08:17 Dose: 5 mg Aspirin (Ecotrin) 81 mg PO DAILY [facility] Last Admin: 03/21/17 08:13 Dose: 81 mg Atorvastatin Calcium (Lipitor) 40 mg PO HS [facility] Last Admin: 03/23/17 21:58 Dose: 40 mg Calcitriol (Rocaltrol) 0.25 mcg PO DAILY [facility] Last Admin: 03/24/17 08:24 Dose: 0.25 mcg Calcium Carbonate (Oscal) 500 mg PO BID [facility] Last Admin: 03/24/17 08:25 Dose: 500 mg Collagenase (Santyl) 1 applic TOP 0600 [facility] Last Admin: 03/24/17 07:09 Dose: 1 applic Docusate Sodium (Colace) 100 mg PO BID [facility] Last Admin: 03/24/17 08:23 Dose: 100 mg Epoetin Tha (Procrit) 4,000 unit IV MWF@1630 [facility] Last Admin: 03/21/17 16:42 Dose: 4,000 unit Ergocalciferol (Drisdol 50,000 Intl Units Cap) 1 cap PO Q7D [facility] Last Admin: 03/19/17 09:30 Dose: 1 cap Fluconazole (Diflucan) 100 mg PO DAILY [facility] PRN Reason: Protocol Last Admin: 03/24/17 08:25 Dose: 100 mg Fluticasone Propionate (Flonase) 1 spr ALLAN BID PRN PRN Reason: Dry nasal passages Last Admin: 03/16/17 06:31 Dose: 1 spr Gabapentin (Neurontin) 300 mg PO TID [facility] Last Admin: 03/24/17 08:24 Dose: 300 mg Hydromorphone HCl (Dilaudid) 2 mg PO Q4 PRN PRN Reason: Pain scale 4-10 Last Admin: 03/24/17 08:28 Dose: 2 mg Hydromorphone HCl (Dilaudid) 1 mg IVP Q1H PRN PRN Reason: Pain, severe (8-10) Vancomycin HCl 250 mg/ Sodium (Chloride) 100 mls @ 100 mls/hr IVPB MWF@2000 [facility] PRN Reason: Protocol Last Admin: 03/21/17 20:19 Dose: 100 mls/hr Ceftazidime/Avibactam 0.94 gm/ (Sodium Chloride) 100 mls @ 100 mls/hr IVPB MWF@ 2000 [facility] PRN Reason: Protocol Last Admin: 03/21/17 21:37 Dose: 100 mls/hr Sodium Chloride (Sodium Chloride 0.9%) 250 mls @ 10 mls/hr IV .Q24H [facility] Stop: 03/24/17 20:46 Last Admin: 03/23/17 20:36 Dose: 10 mls/hr Gentamicin Sulfate 40 mg/ (Sodium Chloride) 51 mls @ 42.5 mls/hr IVPB MWF@2000 [facility] PRN Reason: Protocol Last Admin: 03/21/17 19:23 Dose: 42.5 mls/hr Dextrose/Sodium Chloride (Dextrose 5%-0.45% Ns 500 Ml) 1,000 mls @ 50 mls/hr IV .Q20H [facility] Stop: 03/25/17 13:12 Last Admin: 03/24/17 08:30 Dose: 50 mls/hr Lactobacillus Acidophilus (Bacid Acidophilus) 1 cap PO BID [facility] Last Admin: 03/24/17 08:22 Dose: 1 cap Lamotrigine (Lamictal) 50 mg PO Q12 [facility] Last Admin: 03/24/17 08:26 Dose: 50 mg Lamotrigine (Lamictal) 100 mg PO Q12 [facility] Last Admin: 03/24/17 08:23 Dose: 100 mg Metoprolol Tartrate (Lopressor) 25 mg PO Q12 [facility] Last Admin: 03/24/17 08:27 Dose: Not Given Ondansetron HCl (Zofran Inj) 4 mg IVP Q4 PRN PRN Reason: Nausea/Vomiting Pantoprazole Sodium (Protonix Ec Tab) 40 mg PO DAILY [facility] Last Admin: 03/24/17 08:24 Dose: 40 mg Repaglinide (Prandin) 1 mg PO ACTID [facility] Last Admin: 03/24/17 08:21 Dose: 1 mg Sennosides (Senokot Tab) 17.2 mg PO HS [facility] Last Admin: 03/23/17 21:59 Dose: 17.2 mg Sevelamer HCl (Renagel) 1,600 mg PO TID [facility] Last Admin: 03/24/17 08:24 Dose: 1,600 mg Simethicone (Mylicon Chew Tab) 80 mg PO TID [facility] Last Admin: 03/24/17 08:26 Dose: 80 mg Triamcinolone Acetonide (Kenalog 0.1% In Orabase) 1 appl MM QID PRN PRN Reason: Toothache Vitamin B Complex/Vit C/Folic Acid (Nephro-Ajay) 1 tab PO DAILY [facility] Last Admin: 03/24/17 08:24 Dose: 1 tab Results - Vital Signs Recent Vital Signs: Last Vital Signs Temp 98.2 F 03/23/17 21:00 Pulse 103 H 03/23/17 21:58 Resp 20 03/23/17 21:00 BP 115/58 L 03/23/17 21:58 Pulse Ox 94 L 03/23/17 21:00 - Labs Result Diagrams: 03/21/17 15:50 03/21/17 15:50 Labs: Laboratory Results - last 24 hr 03/23/17 03/24/17 16:29 07:11 POC Glucose (mg/dL) 125 H 99
--- NOTE | 2017-03-24 10:41 | CP.PCM.PN ---
Subjective - Date & Time of Evaluation Date of Evaluation: 03/24/17 Time of Evaluation: 10:37 - Subjective Subjective: Asked to re-evaluate this 46 year old female who has been hospitalized with multiple comorbid conditions which have resulted in bilateral lower extremity amputations as well as various digits of the upper extremities as well. She did have an episode of pneumonia while hospitalized which did resolve with prolonged antibiotic therapy.At this time she is scheduled to have dental extraction which will be done n the operating room this evening under general anesthesia. She has had a repeat CXR which does show some increased BV markings and poor inspiratory effort. This is complicated by her body habitus as well. This x-ray is very much the same as her prior one done while on the medical floor. She offers no specific complaints of cough or SOB at this time. On exam there is no dullness on percussion of the chest wall, and her breath sounds are diminished equally in both lungs. There are occasional dependant rhonchi, but no wheezes or areas of bronchial breath sounds. Rare dependant dry rales are also present. I do feel that she is at her baseline with regards to her respiratory status, and may proceed with the planned dental intervention. Thank you, Objective - Vital Signs/Intake and Output Vital Signs (last 24 hours): Temp Pulse Resp BP Pulse Ox 98.0 F 100 H 19 156/65 H 94 L 03/24/17 08:49 03/24/17 08:49 03/24/17 08:49 03/24/17 08:49 03/24/17 08:49 Intake and Output: 03/23/17 03/24/17 23:59 11:59 Intake Total 120 380 Balance 120 380 - Medications Medications: Current Medications Acetaminophen (Tylenol 325mg Tab) 650 mg PO Q4 PRN PRN Reason: Pain, Mild (1-3) Acetaminophen (Tylenol 325mg Tab) 325 mg PO Q4 PRN PRN Reason: Fever >100.4 F Apixaban (Eliquis) 5 mg PO BID [facility] PRN Reason: Protocol Last Admin: 03/22/17 08:17 Dose: 5 mg Aspirin (Ecotrin) 81 mg PO DAILY [facility] Last Admin: 03/21/17 08:13 Dose: 81 mg Atorvastatin Calcium (Lipitor) 40 mg PO HS [facility] Last Admin: 03/23/17 21:58 Dose: 40 mg Calcitriol (Rocaltrol) 0.25 mcg PO DAILY [facility] Last Admin: 03/24/17 08:24 Dose: 0.25 mcg Calcium Carbonate (Oscal) 500 mg PO BID [facility] Last Admin: 03/24/17 08:25 Dose: 500 mg Collagenase (Santyl) 1 applic TOP 0600 [facility] Last Admin: 03/24/17 07:09 Dose: 1 applic Docusate Sodium (Colace) 100 mg PO BID [facility] Last Admin: 03/24/17 08:23 Dose: 100 mg Epoetin Tha (Procrit) 4,000 unit IV MWF@1630 [facility] Last Admin: 03/21/17 16:42 Dose: 4,000 unit Ergocalciferol (Drisdol 50,000 Intl Units Cap) 1 cap PO Q7D [facility] Last Admin: 03/19/17 09:30 Dose: 1 cap Fluconazole (Diflucan) 100 mg PO DAILY [facility] PRN Reason: Protocol Last Admin: 03/24/17 08:25 Dose: 100 mg Fluticasone Propionate (Flonase) 1 spr ALLAN BID PRN PRN Reason: Dry nasal passages Last Admin: 03/16/17 06:31 Dose: 1 spr Gabapentin (Neurontin) 300 mg PO TID [facility] Last Admin: 03/24/17 08:24 Dose: 300 mg Hydromorphone HCl (Dilaudid) 2 mg PO Q4 PRN PRN Reason: Pain scale 4-10 Last Admin: 03/24/17 08:28 Dose: 2 mg Hydromorphone HCl (Dilaudid) 1 mg IVP Q1H PRN PRN Reason: Pain, severe (8-10) Vancomycin HCl 250 mg/ Sodium (Chloride) 100 mls @ 100 mls/hr IVPB MWF@2000 [facility] PRN Reason: Protocol Last Admin: 03/21/17 20:19 Dose: 100 mls/hr Ceftazidime/Avibactam 0.94 gm/ (Sodium Chloride) 100 mls @ 100 mls/hr IVPB MWF@ 2000 [facility] PRN Reason: Protocol Last Admin: 03/21/17 21:37 Dose: 100 mls/hr Sodium Chloride (Sodium Chloride 0.9%) 250 mls @ 10 mls/hr IV .Q24H [facility] Stop: 03/24/17 20:46 Last Admin: 03/23/17 20:36 Dose: 10 mls/hr Gentamicin Sulfate 40 mg/ (Sodium Chloride) 51 mls @ 42.5 mls/hr IVPB MWF@2000 [facility] PRN Reason: Protocol Last Admin: 03/21/17 19:23 Dose: 42.5 mls/hr Dextrose/Sodium Chloride (Dextrose 5%-0.45% Ns 500 Ml) 1,000 mls @ 50 mls/hr IV .Q20H [facility] Stop: 03/25/17 13:12 Last Admin: 03/24/17 08:30 Dose: 50 mls/hr Lactobacillus Acidophilus (Bacid Acidophilus) 1 cap PO BID [facility] Last Admin: 03/24/17 08:22 Dose: 1 cap Lamotrigine (Lamictal) 50 mg PO Q12 [facility] Last Admin: 03/24/17 08:26 Dose: 50 mg Lamotrigine (Lamictal) 100 mg PO Q12 [facility] Last Admin: 03/24/17 08:23 Dose: 100 mg Metoprolol Tartrate (Lopressor) 25 mg PO Q12 [facility] Last Admin: 03/24/17 08:27 Dose: Not Given Ondansetron HCl (Zofran Inj) 4 mg IVP Q4 PRN PRN Reason: Nausea/Vomiting Pantoprazole Sodium (Protonix Ec Tab) 40 mg PO DAILY [facility] Last Admin: 03/24/17 08:24 Dose: 40 mg Repaglinide (Prandin) 1 mg PO ACTID [facility] Last Admin: 03/24/17 08:21 Dose: 1 mg Sennosides (Senokot Tab) 17.2 mg PO HS [facility] Last Admin: 03/23/17 21:59 Dose: 17.2 mg Sevelamer HCl (Renagel) 1,600 mg PO TID [facility] Last Admin: 03/24/17 08:24 Dose: 1,600 mg Simethicone (Mylicon Chew Tab) 80 mg PO TID [facility] Last Admin: 03/24/17 08:26 Dose: 80 mg Triamcinolone Acetonide (Kenalog 0.1% In Orabase) 1 appl MM QID PRN PRN Reason: Toothache Vitamin B Complex/Vit C/Folic Acid (Nephro-Ajay) 1 tab PO DAILY [facility] Last Admin: 03/24/17 08:24 Dose: 1 tab - Labs Labs: 03/21/17 15:50 03/21/17 15:50 PT 14.8 Seconds (9.8-13.1) H 03/21/17 15:50 INR 1.3 (0.9-1.2) H 03/21/17 15:50 APTT 37.4 Seconds (25.6-37.1) H 03/21/17 15:50
--- NOTE | 2017-03-24 13:20 | CP.PCM.PN ---
Subjective - Date & Time of Evaluation Date of Evaluation: 03/24/17 Time of Evaluation: 11:00 - Subjective Subjective: she was seen in the rehabilitation floor. Patient receiving physiotherapy. Patient appears to be feeling good. No shortness of breath. appetite normal P/E Chest no rales no rhonchi Heart no rubs. Abdomen soft. Extremities bilateral amputation. Impression and plan Patient going for dental procedures today. Hemodialysis scheduled shortly after completing the physiotherapy session. order in place. sodium 138. Potassium 2 mEq. bicarbonate bath 34 The rest of the medical problem as noted in my previous notes. Patient is stable. Antibiotics as per primary team. Objective - Vital Signs/Intake and Output Vital Signs (last 24 hours): Temp Pulse Resp BP Pulse Ox 98.0 F 100 H 19 156/65 H 94 L 03/24/17 08:49 03/24/17 08:49 03/24/17 08:49 03/24/17 08:49 03/24/17 08:49 Intake and Output: 03/24/17 03/24/17 06:59 18:59 Intake Total 380 Balance 380 - Medications Medications: Current Medications Acetaminophen (Tylenol 325mg Tab) 650 mg PO Q4 PRN PRN Reason: Pain, Mild (1-3) Acetaminophen (Tylenol 325mg Tab) 325 mg PO Q4 PRN PRN Reason: Fever >100.4 F Apixaban (Eliquis) 5 mg PO BID [facility] PRN Reason: Protocol Last Admin: 03/22/17 08:17 Dose: 5 mg Aspirin (Ecotrin) 81 mg PO DAILY [facility] Last Admin: 03/21/17 08:13 Dose: 81 mg Atorvastatin Calcium (Lipitor) 40 mg PO HS [facility] Last Admin: 03/23/17 21:58 Dose: 40 mg Calcitriol (Rocaltrol) 0.25 mcg PO DAILY [facility] Last Admin: 03/24/17 08:24 Dose: 0.25 mcg Calcium Carbonate (Oscal) 500 mg PO BID [facility] Last Admin: 03/24/17 08:25 Dose: 500 mg Collagenase (Santyl) 1 applic TOP 0600 [facility] Last Admin: 03/24/17 07:09 Dose: 1 applic Docusate Sodium (Colace) 100 mg PO BID [facility] Last Admin: 03/24/17 08:23 Dose: 100 mg Epoetin Tha (Procrit) 4,000 unit IV MWF@1630 [facility] Last Admin: 03/21/17 16:42 Dose: 4,000 unit Ergocalciferol (Drisdol 50,000 Intl Units Cap) 1 cap PO Q7D [facility] Last Admin: 03/19/17 09:30 Dose: 1 cap Fluconazole (Diflucan) 100 mg PO DAILY [facility] PRN Reason: Protocol Last Admin: 03/24/17 08:25 Dose: 100 mg Fluticasone Propionate (Flonase) 1 spr ALLAN BID PRN PRN Reason: Dry nasal passages Last Admin: 03/16/17 06:31 Dose: 1 spr Gabapentin (Neurontin) 300 mg PO TID [facility] Last Admin: 03/24/17 12:51 Dose: Not Given Hydromorphone HCl (Dilaudid) 2 mg PO Q4 PRN PRN Reason: Pain scale 4-10 Last Admin: 03/24/17 08:28 Dose: 2 mg Hydromorphone HCl (Dilaudid) 1 mg IVP Q1H PRN PRN Reason: Pain, severe (8-10) Vancomycin HCl 250 mg/ Sodium (Chloride) 100 mls @ 100 mls/hr IVPB MWF@2000 [facility] PRN Reason: Protocol Last Admin: 03/21/17 20:19 Dose: 100 mls/hr Ceftazidime/Avibactam 0.94 gm/ (Sodium Chloride) 100 mls @ 100 mls/hr IVPB MWF@ 2000 [facility] PRN Reason: Protocol Last Admin: 03/21/17 21:37 Dose: 100 mls/hr Sodium Chloride (Sodium Chloride 0.9%) 250 mls @ 10 mls/hr IV .Q24H [facility] Stop: 03/24/17 20:46 Last Admin: 03/23/17 20:36 Dose: 10 mls/hr Gentamicin Sulfate 40 mg/ (Sodium Chloride) 51 mls @ 42.5 mls/hr IVPB MWF@2000 [facility] PRN Reason: Protocol Last Admin: 03/21/17 19:23 Dose: 42.5 mls/hr Dextrose/Sodium Chloride (Dextrose 5%-0.45% Ns 500 Ml) 1,000 mls @ 50 mls/hr IV .Q20H [facility] Stop: 03/25/17 13:12 Last Admin: 03/24/17 08:30 Dose: 50 mls/hr Lactobacillus Acidophilus (Bacid Acidophilus) 1 cap PO BID [facility] Last Admin: 03/24/17 08:22 Dose: 1 cap Lamotrigine (Lamictal) 50 mg PO Q12 [facility] Last Admin: 03/24/17 08:26 Dose: 50 mg Lamotrigine (Lamictal) 100 mg PO Q12 [facility] Last Admin: 03/24/17 08:23 Dose: 100 mg Metoprolol Tartrate (Lopressor) 25 mg PO Q12 [facility] Last Admin: 03/24/17 08:27 Dose: Not Given Ondansetron HCl (Zofran Inj) 4 mg IVP Q4 PRN PRN Reason: Nausea/Vomiting Pantoprazole Sodium (Protonix Ec Tab) 40 mg PO DAILY [facility] Last Admin: 03/24/17 08:24 Dose: 40 mg Repaglinide (Prandin) 1 mg PO ACTID [facility] Last Admin: 03/24/17 11:58 Dose: Not Given Sennosides (Senokot Tab) 17.2 mg PO HS [facility] Last Admin: 03/23/17 21:59 Dose: 17.2 mg Sevelamer HCl (Renagel) 1,600 mg PO TID [facility] Last Admin: 03/24/17 12:51 Dose: Not Given Simethicone (Mylicon Chew Tab) 80 mg PO TID [facility] Last Admin: 03/24/17 12:51 Dose: Not Given Triamcinolone Acetonide (Kenalog 0.1% In Orabase) 1 appl MM QID PRN PRN Reason: Toothache Vitamin B Complex/Vit C/Folic Acid (Nephro-Ajay) 1 tab PO DAILY [facility] Last Admin: 03/24/17 08:24 Dose: 1 tab - Labs Labs: 03/21/17 15:50 03/21/17 15:50 PT 14.8 Seconds (9.8-13.1) H 03/21/17 15:50 INR 1.3 (0.9-1.2) H 03/21/17 15:50 APTT 37.4 Seconds (25.6-37.1) H 03/21/17 15:50 Assessment and Plan (1) CKD (chronic kidney disease) stage V requiring chronic dialysis Status: Acute (2) 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
[2017-03-24] MEDS: Epoetin Alfa 4000 UNIT/ML Inj IV SCH (15:37)
--- NOTE | 2017-03-24 15:47 | CP.PCM.PN ---
Subjective - Date & Time of Evaluation Date of Evaluation: 03/24/17 Time of Evaluation: 15:42 - Subjective Subjective: Patient is comfortable and receiving hemodialysis now. Wound vac changed. The R BK wound is now reduced to 4 x 1cm with 100% granulation tissue. The R patellar wound is resolving nicely as well, with daily Santyl chemical debridement. She has no fevers, cough, dyspnea, or chest pain. She is awaiting dental extraction under anesthesia tonight. She has been cleared for this by Drs. Richard Shepard (cardiol), Dr. Richard Flores (pulmonary) and by me. She is npo and the Elquis and aspirin have been withheld. Note that she should not receive NSAIDs because of the risk of clotting, but I have ordered both po and IV Dilaudid should she need something for pain. DM controlled. Seizures controlled. WILL RESUME ELIQUIS AND ASPIRIN SOON HEMOSTASIS SEQURED - HOPEFULLY TOMORROW. PLAN IS FOR MONITORING TOMORROW, HEMODIALYSIS AND WOUND VAC CHANGE ON Fri AND TRANSFER TO [facility] ON Fri FOR SUBACUTE REHAB. Objective - Vital Signs/Intake and Output Vital Signs (last 24 hours): Temp Pulse Resp BP Pulse Ox 98.0 F 100 H 19 156/65 H 94 L 03/24/17 08:49 03/24/17 08:49 03/24/17 08:49 03/24/17 08:49 03/24/17 08:49 Intake and Output: 03/24/17 03/24/17 06:59 18:59 Intake Total 380 Balance 380 - Medications Medications: Current Medications Acetaminophen (Tylenol 325mg Tab) 650 mg PO Q4 PRN PRN Reason: Pain, Mild (1-3) Acetaminophen (Tylenol 325mg Tab) 325 mg PO Q4 PRN PRN Reason: Fever >100.4 F Apixaban (Eliquis) 5 mg PO BID [facility] PRN Reason: Protocol Last Admin: 03/22/17 08:17 Dose: 5 mg Aspirin (Ecotrin) 81 mg PO DAILY [facility] Last Admin: 03/21/17 08:13 Dose: 81 mg Atorvastatin Calcium (Lipitor) 40 mg PO HS [facility] Last Admin: 03/23/17 21:58 Dose: 40 mg Calcitriol (Rocaltrol) 0.25 mcg PO DAILY [facility] Last Admin: 03/24/17 08:24 Dose: 0.25 mcg Calcium Carbonate (Oscal) 500 mg PO BID [facility] Last Admin: 03/24/17 08:25 Dose: 500 mg Collagenase (Santyl) 1 applic TOP 0600 [facility] Last Admin: 03/24/17 07:09 Dose: 1 applic Docusate Sodium (Colace) 100 mg PO BID [facility] Last Admin: 03/24/17 08:23 Dose: 100 mg Epoetin Tha (Procrit) 4,000 unit IV MWF@1630 [facility] Last Admin: 03/24/17 15:37 Dose: 4,000 unit Ergocalciferol (Drisdol 50,000 Intl Units Cap) 1 cap PO Q7D [facility] Last Admin: 03/19/17 09:30 Dose: 1 cap Fluconazole (Diflucan) 100 mg PO DAILY [facility] PRN Reason: Protocol Last Admin: 03/24/17 08:25 Dose: 100 mg Fluticasone Propionate (Flonase) 1 spr ALLAN BID PRN PRN Reason: Dry nasal passages Last Admin: 03/16/17 06:31 Dose: 1 spr Gabapentin (Neurontin) 300 mg PO TID [facility] Last Admin: 03/24/17 12:51 Dose: Not Given Hydromorphone HCl (Dilaudid) 2 mg PO Q4 PRN PRN Reason: Pain scale 4-10 Last Admin: 03/24/17 08:28 Dose: 2 mg Hydromorphone HCl (Dilaudid) 1 mg IVP Q1H PRN PRN Reason: Pain, severe (8-10) Vancomycin HCl 250 mg/ Sodium (Chloride) 100 mls @ 100 mls/hr IVPB MWF@2000 [facility] PRN Reason: Protocol Last Admin: 03/21/17 20:19 Dose: 100 mls/hr Ceftazidime/Avibactam 0.94 gm/ (Sodium Chloride) 100 mls @ 100 mls/hr IVPB MWF@ 2000 [facility] PRN Reason: Protocol Last Admin: 03/21/17 21:37 Dose: 100 mls/hr Sodium Chloride (Sodium Chloride 0.9%) 250 mls @ 10 mls/hr IV .Q24H [facility] Stop: 03/24/17 20:46 Last Admin: 03/23/17 20:36 Dose: 10 mls/hr Gentamicin Sulfate 40 mg/ (Sodium Chloride) 51 mls @ 42.5 mls/hr IVPB MWF@2000 [facility] PRN Reason: Protocol Last Admin: 03/21/17 19:23 Dose: 42.5 mls/hr Dextrose/Sodium Chloride (Dextrose 5%-0.45% Ns 500 Ml) 1,000 mls @ 50 mls/hr IV .Q20H [facility] Stop: 03/25/17 13:12 Last Admin: 03/24/17 08:30 Dose: 50 mls/hr Lactobacillus Acidophilus (Bacid Acidophilus) 1 cap PO BID [facility] Last Admin: 03/24/17 08:22 Dose: 1 cap Lamotrigine (Lamictal) 50 mg PO Q12 [facility] Last Admin: 03/24/17 08:26 Dose: 50 mg Lamotrigine (Lamictal) 100 mg PO Q12 [facility] Last Admin: 03/24/17 08:23 Dose: 100 mg Metoprolol Tartrate (Lopressor) 25 mg PO Q12 [facility] Last Admin: 03/24/17 08:27 Dose: Not Given Ondansetron HCl (Zofran Inj) 4 mg IVP Q4 PRN PRN Reason: Nausea/Vomiting Pantoprazole Sodium (Protonix Ec Tab) 40 mg PO DAILY [facility] Last Admin: 03/24/17 08:24 Dose: 40 mg Repaglinide (Prandin) 1 mg PO ACTID [facility] Last Admin: 03/24/17 11:58 Dose: Not Given Sennosides (Senokot Tab) 17.2 mg PO HS [facility] Last Admin: 03/23/17 21:59 Dose: 17.2 mg Sevelamer HCl (Renagel) 1,600 mg PO TID [facility] Last Admin: 03/24/17 12:51 Dose: Not Given Simethicone (Mylicon Chew Tab) 80 mg PO TID [facility] Last Admin: 03/24/17 12:51 Dose: Not Given Triamcinolone Acetonide (Kenalog 0.1% In Orabase) 1 appl MM QID PRN PRN Reason: Toothache Vitamin B Complex/Vit C/Folic Acid (Nephro-Ajay) 1 tab PO DAILY [facility] Last Admin: 03/24/17 08:24 Dose: 1 tab - Labs Labs: 03/21/17 15:50 03/21/17 15:50 PT 14.8 Seconds (9.8-13.1) H 03/21/17 15:50 INR 1.3 (0.9-1.2) H 03/21/17 15:50 APTT 37.4 Seconds (25.6-37.1) H 03/21/17 15:50 - Constitutional Appears: No Acute Distress - Head Exam Head Exam: NORMAL INSPECTION - Eye Exam Eye Exam: Normal appearance - ENT Exam ENT Exam: Mucous Membranes Moist - Neck Exam Neck Exam: Normal Inspection Additional comments: R subclavian Permacath intact. - Respiratory Exam Respiratory Exam: Clear to Ausculation Bilateral, NORMAL BREATHING PATTERN - Cardiovascular Exam Cardiovascular Exam: REGULAR RHYTHM, +S1, +S2 - GI/Abdominal Exam GI & Abdominal Exam: Soft, Normal Bowel Sounds - Extremities Exam Additional comments: Dressings intact RLE. L femoral vein PICC line intact. - Back Exam Back Exam: NORMAL INSPECTION - Neurological Exam Neurological Exam: Alert, CN II-XII Intact, Oriented x3 - Psychiatric Exam Psychiatric exam: Normal Affect, Normal Mood - Skin Skin Exam: Dry, Normal Color, Warm Assessment and Plan (1) Broken tooth injury Assessment & Plan: Cleared for surgical extraction tonight under anesthesia. Status: Acute (2) Elevated liver enzymes Assessment & Plan: Mild, stable. Status: Acute (3) Status post below knee amputation of right lower extremity Assessment & Plan: Doing well in rehab. Status: Acute (4) Infection of amputation stump of right lower extremity Assessment & Plan: To continue all antibiotics. Status: Acute (5) DM type 2 (diabetes mellitus, type 2) Assessment & Plan: controlled. Status: Chronic (6) ESRD (end stage renal disease) on dialysis Assessment & Plan: Managed per Dr. Alta Guadarrama. Status: Chronic (7) Diabetic retinopathy Assessment & Plan: Office visit with Dr. Sheikh postponed. Status: Acute (8) Seizure disorder Assessment & Plan: controlled. Status: Acute (9) Gallstones without obstruction of gallbladder Status: Acute (10) Coagulopathy Assessment & Plan: Protein C & S defciency and heparin antibodies. 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
--- NOTE | 2017-03-24 17:12 | CP.PCM.PN ---
Subjective - Date & Time of Evaluation Date of Evaluation: 03/24/17 Time of Evaluation: 17:11 - Subjective Subjective: Patient seen in room finished HD set for going up to [facility] LMWH has been held pain is controlled set for 03/26/17 to [facility] Objective - Vital Signs/Intake and Output Vital Signs (last 24 hours): Temp Pulse Resp BP Pulse Ox 98.0 F 100 H 19 156/65 H 94 L 03/24/17 08:49 03/24/17 08:49 03/24/17 08:49 03/24/17 08:49 03/24/17 08:49 Intake and Output: 03/24/17 03/24/17 06:59 18:59 Intake Total 380 Balance 380 - Medications Medications: Current Medications Acetaminophen (Tylenol 325mg Tab) 650 mg PO Q4 PRN PRN Reason: Pain, Mild (1-3) Acetaminophen (Tylenol 325mg Tab) 325 mg PO Q4 PRN PRN Reason: Fever >100.4 F Apixaban (Eliquis) 5 mg PO BID [facility] PRN Reason: Protocol Last Admin: 03/22/17 08:17 Dose: 5 mg Aspirin (Ecotrin) 81 mg PO DAILY [facility] Last Admin: 03/21/17 08:13 Dose: 81 mg Atorvastatin Calcium (Lipitor) 40 mg PO HS [facility] Last Admin: 03/23/17 21:58 Dose: 40 mg Calcitriol (Rocaltrol) 0.25 mcg PO DAILY [facility] Last Admin: 03/24/17 08:24 Dose: 0.25 mcg Calcium Carbonate (Oscal) 500 mg PO BID [facility] Last Admin: 03/24/17 17:01 Dose: Not Given Collagenase (Santyl) 1 applic TOP 0600 [facility] Last Admin: 03/24/17 07:09 Dose: 1 applic Docusate Sodium (Colace) 100 mg PO BID [facility] Last Admin: 03/24/17 17:01 Dose: Not Given Epoetin Tha (Procrit) 4,000 unit IV MWF@1630 [facility] Last Admin: 03/24/17 15:37 Dose: 4,000 unit Ergocalciferol (Drisdol 50,000 Intl Units Cap) 1 cap PO Q7D [facility] Last Admin: 03/19/17 09:30 Dose: 1 cap Fluconazole (Diflucan) 100 mg PO DAILY [facility] PRN Reason: Protocol Last Admin: 03/24/17 08:25 Dose: 100 mg Fluticasone Propionate (Flonase) 1 spr ALLAN BID PRN PRN Reason: Dry nasal passages Last Admin: 03/16/17 06:31 Dose: 1 spr Gabapentin (Neurontin) 300 mg PO TID [facility] Last Admin: 03/24/17 17:02 Dose: Not Given Hydromorphone HCl (Dilaudid) 2 mg PO Q4 PRN PRN Reason: Pain scale 4-10 Last Admin: 03/24/17 08:28 Dose: 2 mg Hydromorphone HCl (Dilaudid) 1 mg IVP Q1H PRN PRN Reason: Pain, severe (8-10) Vancomycin HCl 250 mg/ Sodium (Chloride) 100 mls @ 100 mls/hr IVPB MWF@2000 [facility] PRN Reason: Protocol Last Admin: 03/21/17 20:19 Dose: 100 mls/hr Ceftazidime/Avibactam 0.94 gm/ (Sodium Chloride) 100 mls @ 100 mls/hr IVPB MWF@ 2000 [facility] PRN Reason: Protocol Last Admin: 03/21/17 21:37 Dose: 100 mls/hr Sodium Chloride (Sodium Chloride 0.9%) 250 mls @ 10 mls/hr IV .Q24H [facility] Stop: 03/24/17 20:46 Last Admin: 03/23/17 20:36 Dose: 10 mls/hr Gentamicin Sulfate 40 mg/ (Sodium Chloride) 51 mls @ 42.5 mls/hr IVPB MWF@2000 [facility] PRN Reason: Protocol Last Admin: 03/21/17 19:23 Dose: 42.5 mls/hr Dextrose/Sodium Chloride (Dextrose 5%-0.45% Ns 500 Ml) 1,000 mls @ 50 mls/hr IV .Q20H [facility] Stop: 03/25/17 13:12 Last Admin: 03/24/17 08:30 Dose: 50 mls/hr Lactobacillus Acidophilus (Bacid Acidophilus) 1 cap PO BID [facility] Last Admin: 03/24/17 17:01 Dose: Not Given Lamotrigine (Lamictal) 50 mg PO Q12 [facility] Last Admin: 03/24/17 08:26 Dose: 50 mg Lamotrigine (Lamictal) 100 mg PO Q12 [facility] Last Admin: 03/24/17 08:23 Dose: 100 mg Metoprolol Tartrate (Lopressor) 25 mg PO Q12 [facility] Last Admin: 03/24/17 08:27 Dose: Not Given Ondansetron HCl (Zofran Inj) 4 mg IVP Q4 PRN PRN Reason: Nausea/Vomiting Pantoprazole Sodium (Protonix Ec Tab) 40 mg PO DAILY [facility] Last Admin: 03/24/17 08:24 Dose: 40 mg Repaglinide (Prandin) 1 mg PO ACTID [facility] Last Admin: 03/24/17 17:01 Dose: Not Given Sennosides (Senokot Tab) 17.2 mg PO HS [facility] Last Admin: 03/23/17 21:59 Dose: 17.2 mg Sevelamer HCl (Renagel) 1,600 mg PO TID [facility] Last Admin: 03/24/17 17:02 Dose: Not Given Simethicone (Mylicon Chew Tab) 80 mg PO TID [facility] Last Admin: 03/24/17 17:01 Dose: Not Given Triamcinolone Acetonide (Kenalog 0.1% In Orabase) 1 appl MM QID PRN PRN Reason: Toothache Vitamin B Complex/Vit C/Folic Acid (Nephro-Ajay) 1 tab PO DAILY [facility] Last Admin: 03/24/17 08:24 Dose: 1 tab - Labs Labs: 03/21/17 15:50 03/21/17 15:50 PT 14.8 Seconds (9.8-13.1) H 03/21/17 15:50 INR 1.3 (0.9-1.2) H 03/21/17 15:50 APTT 37.4 Seconds (25.6-37.1) H 03/21/17 15:50
--- NOTE | 2017-03-24 18:09 | PN ---
DATE: ENDOCRINOLOGY FOLLOWUP NOTE LOCATION: Room 625. SUBJECTIVE: This is a 46-year-old female with recent uncontrolled type 2 diabetes, now improved clinically and metabolically as noted thereof. Her glucose values today have ranged from 99-125 mg/dL. She is scheduled for a tooth extraction tonight as noted. We will resume her Prandin given as 1 mg p.o. t.i.d. after they have advanced her diet to solid food by tomorrow morning. In the meantime, they have held her oral hypoglycemic therapy for lunchtime and dinnertime today as noted. We will obtain serial chemistries and supplement accordingly as needed. We will follow. Irene Ambrose MD
[2017-03-24] MEDS ORDERED: Midazolam 2 MG/2 ML VIAL ONE (18:34)
[2017-03-24] MEDS: Sodium Chloride 0.9% 250 ML IV SCH (20:34)
[2017-03-24] MEDS: Gentamicin 40 MG in Sodium Chloride 0.9% 50 ML IVPB SCH (20:34)
[2017-03-24] MEDS: Vancomycin 250 MG in Sodium Chloride 0.9% 100 ML IVPB SCH (21:51)
[2017-03-25] MEDS: Santyl Collagenase OINTMENT TOP SCH (06:50)
[2017-03-25] MEDS: Lactobacillus Acidophilus 500 MU Cap PO SCH ×2 (08:56→17:18)
[2017-03-25] MEDS: Pantoprazole 40 mg EC Tab PO SCH (09:02)
[2017-03-25] MEDS: Simethicone 80 mg Chewtab PO SCH ×3 (09:04→17:19)
[2017-03-25] MEDS: Multivitamin Vitamin B Complex (Nephro-Vite) Tab PO SCH (09:04)
--- NOTE | 2017-03-25 11:06 | CP.PCM.PN ---
Subjective - Date & Time of Evaluation Date of Evaluation: 03/25/17 Time of Evaluation: 11:03 - Subjective Subjective: Patient is s/p extraction of molar - it was the left lower molar - yesterday evening. There is moderate discomfort, but no bleeding or drainage. She is able to eat. She continues on 3 iv and 1 po antibiotic for osteomyelitis. For intensive rehab today, then dialysis and wound care tomorrow morning and then transfer to [facility] omorrow afternoon. Will d/c iv fluids except for NSS at 10ml to kvo. Will continue usual Prandin for diabetes - has good control. Will restart Eliquis and aspirin. Objective - Vital Signs/Intake and Output Vital Signs (last 24 hours): Temp Pulse Resp BP Pulse Ox 97 F L 99 H 18 144/83 97 03/25/17 09:00 03/25/17 09:00 03/25/17 09:00 03/25/17 09:00 03/25/17 09:00 Intake and Output: 03/25/17 03/25/17 06:59 18:59 Intake Total 650 Balance 650 - Medications Medications: Current Medications Acetaminophen (Tylenol 325mg Tab) 650 mg PO Q4 PRN PRN Reason: Pain, Mild (1-3) Acetaminophen (Tylenol 325mg Tab) 325 mg PO Q4 PRN PRN Reason: Fever >100.4 F Apixaban (Eliquis) 5 mg PO BID [facility] PRN Reason: Protocol Last Admin: 03/22/17 08:17 Dose: 5 mg Aspirin (Ecotrin) 81 mg PO DAILY [facility] Last Admin: 03/21/17 08:13 Dose: 81 mg Atorvastatin Calcium (Lipitor) 40 mg PO HS [facility] Last Admin: 03/24/17 21:01 Dose: Not Given Calcitriol (Rocaltrol) 0.25 mcg PO DAILY [facility] Last Admin: 03/25/17 09:04 Dose: 0.25 mcg Calcium Carbonate (Oscal) 500 mg PO BID [facility] Last Admin: 03/25/17 09:00 Dose: 500 mg Collagenase (Santyl) 1 applic TOP 0600 [facility] Last Admin: 03/25/17 06:50 Dose: 1 applic Docusate Sodium (Colace) 100 mg PO BID [facility] Last Admin: 03/25/17 09:02 Dose: 100 mg Epoetin Tha (Procrit) 4,000 unit IV MWF@1630 [facility] Last Admin: 03/24/17 15:37 Dose: 4,000 unit Ergocalciferol (Drisdol 50,000 Intl Units Cap) 1 cap PO Q7D [facility] Last Admin: 03/19/17 09:30 Dose: 1 cap Fluconazole (Diflucan) 100 mg PO DAILY [facility] PRN Reason: Protocol Last Admin: 03/25/17 09:02 Dose: 100 mg Fluticasone Propionate (Flonase) 1 spr ALLAN BID PRN PRN Reason: Dry nasal passages Last Admin: 03/25/17 10:37 Dose: 1 spr Gabapentin (Neurontin) 300 mg PO TID [facility] Last Admin: 03/25/17 09:00 Dose: 300 mg Hydromorphone HCl (Dilaudid) 2 mg PO Q4 PRN PRN Reason: Pain scale 4-10 Last Admin: 03/25/17 08:57 Dose: 2 mg Hydromorphone HCl (Dilaudid) 1 mg IVP Q1H PRN PRN Reason: Pain, severe (8-10) Last Admin: 03/25/17 05:17 Dose: 1 mg Vancomycin HCl 250 mg/ Sodium (Chloride) 100 mls @ 100 mls/hr IVPB MWF@2000 [facility] PRN Reason: Protocol Last Admin: 03/24/17 21:51 Dose: 100 mls/hr Ceftazidime/Avibactam 0.94 gm/ (Sodium Chloride) 100 mls @ 100 mls/hr IVPB MWF@ 2000 [facility] PRN Reason: Protocol Last Admin: 03/24/17 22:59 Dose: 100 mls/hr Gentamicin Sulfate 40 mg/ (Sodium Chloride) 51 mls @ 42.5 mls/hr IVPB MWF@2000 [facility] PRN Reason: Protocol Last Admin: 03/24/17 20:34 Dose: 42.5 mls/hr Dextrose/Sodium Chloride (Dextrose 5%-0.45% Ns 500 Ml) 1,000 mls @ 50 mls/hr IV .Q20H [facility] Stop: 03/25/17 13:12 Last Admin: 03/25/17 05:14 Dose: Not Given Lactobacillus Acidophilus (Bacid Acidophilus) 1 cap PO BID [facility] Last Admin: 03/25/17 08:56 Dose: 1 cap Lamotrigine (Lamictal) 50 mg PO Q12 [facility] Last Admin: 03/25/17 09:03 Dose: 50 mg Lamotrigine (Lamictal) 100 mg PO Q12 [facility] Last Admin: 03/25/17 09:03 Dose: 100 mg Metoprolol Tartrate (Lopressor) 25 mg PO Q12 [facility] Last Admin: 03/25/17 09:00 Dose: 25 mg Ondansetron HCl (Zofran Inj) 4 mg IVP Q4 PRN PRN Reason: Nausea/Vomiting Pantoprazole Sodium (Protonix Ec Tab) 40 mg PO DAILY [facility] Last Admin: 03/25/17 09:02 Dose: 40 mg Repaglinide (Prandin) 1 mg PO ACTID [facility] Last Admin: 03/25/17 09:00 Dose: 1 mg Sennosides (Senokot Tab) 17.2 mg PO HS [facility] Last Admin: 03/24/17 21:01 Dose: Not Given Sevelamer HCl (Renagel) 1,600 mg PO TID [facility] Last Admin: 03/25/17 09:00 Dose: 1,600 mg Simethicone (Mylicon Chew Tab) 80 mg PO TID [facility] Last Admin: 03/25/17 09:04 Dose: 80 mg Triamcinolone Acetonide (Kenalog 0.1% In Orabase) 1 appl MM QID PRN PRN Reason: Toothache Vitamin B Complex/Vit C/Folic Acid (Nephro-Ajay) 1 tab PO DAILY [facility] Last Admin: 03/25/17 09:04 Dose: 1 tab - Labs Labs: 03/21/17 15:50 03/21/17 15:50 PT 14.8 Seconds (9.8-13.1) H 03/21/17 15:50 INR 1.3 (0.9-1.2) H 03/21/17 15:50 APTT 37.4 Seconds (25.6-37.1) H 03/21/17 15:50 - Constitutional Appears: No Acute Distress - Head Exam Head Exam: NORMAL INSPECTION - Eye Exam Eye Exam: Normal appearance Pupil Exam: NORMAL ACCOMODATION - ENT Exam ENT Exam: Mucous Membranes Moist Additional comments: Socket left lower molar is healing with no bleeding or drainage. - Neck Exam Neck Exam: Normal Inspection - Respiratory Exam Respiratory Exam: Clear to Ausculation Bilateral, NORMAL BREATHING PATTERN - Cardiovascular Exam Cardiovascular Exam: REGULAR RHYTHM, +S1, +S2 - GI/Abdominal Exam GI & Abdominal Exam: Soft - Extremities Exam Additional comments: Dressings and wound vac intact. L femoral PICC line intact. 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
--- NOTE | 2017-03-25 13:26 | PSY.TMCNF ---
Nursing - Vital Signs Vital Signs (Last 8 hours): Vital Signs 03/25/17 09:00 Temperature 97 F L Pulse Rate 99 H Respiratory 20 Rate Blood Pressure 144/83 O2 Sat by Pulse 97 Oximetry Pain: 1 - Precautions: Precautions: Fall Prevention, Cardiac/Pulmonary, Pressure Ulcer, Seizure Isolation: Contact - Medications/Other Issues Comment: on antibiotic therapy wound vac had tooch extraction 03/24,on dilaudid for pain and dialysis M,W,F - Consults Comment: DR Daniels,DR Ambrose, Dr Guadarrama,Dr Tito Lemon - Skin Incision Site: rt stump Drainage: Serous Dressing Status: Clean, Dry, Intact Incision: Healing Well, No Odor Incision Line Treatment: on wound vac and santyl for knee wound - Toileting Toileting: Dependent - Bladder Management Bladder Management: Dependent - Bowel Management Bowel Pattern: Normal Bowel Management: Dependent - Transfers Transfers: Moderate Assistance - ADL's ADL's: Moderate Assistance - Pain Management Comments: on dilaudid q4hrs prn - Patient/Family Teaching Comments: safety,pain medications and antibiotic therapy infection control skin care - Goals/Time Frame Comments: as per interdiciplinary plan of care - Provider Provider: [facility] - Bed Mobility Bed Mobility: Supervision, Verbal Cues, Contact Guard Comment: utilizes bed rails, and features of hospital bed for mobility - Transfers Wheelchair to Mat: Supervision, Verbal Cues, Contact Guard Sit to Stand: Dependent Comment: set-up assistance for lateral transfers; slide board - Ambulation Level of Assistance: Not Tested Comment: pt currently is non-amb, primary mode of locomotion is w/c - Stair Negotiation Comment: pt currently is non-amb, primary mode of locomotion is w/c - Standing Balance Static Stand: Maximal Assistance Dynamic Stand: Unable to assess/perform Comment: standing frame trials - Pain Management Techniques: Medication, Ice - Insight/Carryover Insight/Carryover: Good - Patient/Family Education Comment: compensatory strategies for ADLs and ADL transfers, DME training, stump care and prosthesis training. - Assessment/Plan Assessment: Pt requires continued OT services to maximize independence with ADLs and functional transfers in order to return home. - Goals Timeframe: 1 week Goals: S with toileting. S with toilet txfers. setup LE dressing. MOD I UE dressing. S with bathing - Provider License Number: [id number] Occupational Therapy - Arousal/Attention/Orientation Patient Orientation: Person, Place, Time, Appropriate to Age, Appropriate to Situation - ADL/IADL Self Feeding: Independent Grooming: Independent Bathing-Upper Extremity: Supervision, Verbal Cues, Set-up Help Bathing-Lower Extremity: Verbal Cues, Contact Guard, Minimal Assistance Dressing-Upper Extremity: Set-up Help Dressing-Lower Extremity: Verbal Cues, Set-up Help, Minimal Assistance - Sitting Balance Static Sitting: Independent with upper extremity support Dynamic Sitting: Reaches across midline, Reaches out of base of support, Reaches within base of support, Requires supervision Comment: while wearing prosthesis - Transfers Wheelchair to Bed Transfers: Verbal Cues, Set-up Help, Contact Guard Toilet Transfers: Verbal Cues, Set-up Help, Contact Guard - Wheelchair Management Level of Assistance: Modified Independent Distance (ft.): 50 - Upper Extremity Status Right Upper Extremity Comment: ROM WFL, pt with 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, generalized weakness Left Upper Extremity Comment: ROM WFL, pt with 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 , generalized weakness - Pain Alleviating Techniques: Medication, Ice - Insight/Carryover Insight/Carryover: Good - Patient/Family Education Comment: compensatory strategies for ADLs and ADL transfers, DME training, stump care and prosthesis training. - Assessment/Plan Assessment: Pt requires continued OT services to maximize independence with ADLs and functional transfers in order to return home. - Goals Timeframe: 1 week Goals: S with toileting. S with toilet txfers. setup LE dressing. MOD I UE dressing. S with bathing - Provider Therapist: Sherron Lawrence License Number: [id number] Speech Therapy - Plan Assessment: Pt requires continued OT services to maximize independence with ADLs and functional transfers in order to return home. Recreational Therapy - Participation Participation: Participates in Individual and/or Group Sessions, Monitors His/ Her Own Leisure Time - Attendance Attendance: 3-5 times per week - Activities Leisure Activities: Television - Socialization Level of Socialization: Initiates/interacts freely with care givers and peer, Initiates/interacts with caregivers but not with peer - Diversional Time Diversional Time: television, word searches - Assessment Assessment/Plan: Pt requires continued OT services to maximize independence with ADLs and functional transfers in order to return home. - Provider Therapist: Keren Hair, FISCAL SERVICES MANAGER #[id number] Nutrition - Current Diet Current Diet/ Supplement/ Feedings: Renal dialysis 2 gram Na 2 gram K+ 80 gram protein diet. Nepro 8 ounces 1 per day - Appetite Percent Meal Consumed: 75-100% - Comments Comments: safety,pain medications and antibiotic therapy infection control skin care - Assessment/Goals/Time Frame Assessment/Goals/Time Frame: on antibiotic therapy wound vac had tooch extraction 03/24,on dilaudid for pain and dialysis M,W,F - Provider Provider: Muriel Dale RD Case Management - Psychosocial Assessment Support Systems: Lucia Leo (sibling)- [phone]. Sandra Leo (mother)- Psychological Interventions/Needs: Patient is alert and oriented x3, cooperative and motivated for therapy Discharge Concerns: Patient CG-Roc for all functional moblity. Currently on wound vac for R stump Patient/Family Meeting: CM met with patient and rehab team Intervention/Goal/Outcome:: 1. PLAN: ALFONZO- plan for [facility] for continued inpatient rehab, wound care and HD. 2. tentative discharge date for 03/21/2017 pending plan for possible tooth extraction, insurance LAD: 03/20/2017. 3. continued emotional support - Discharge Plan Discharge Plan: Subacute care - Provider Provider: MARYBETH Lenz, [employer] License Number: [id number] Rehabilitation Plan - Discharge Plan Estimated Date of Discharge: 03/26/17 Discharge to: Subacute
--- NOTE | 2017-03-25 13:53 | CP.PCM.PN ---
Subjective - Date & Time of Evaluation Date of Evaluation: 03/25/17 Time of Evaluation: 13:52 - Subjective Subjective: Patient seen in room doing ok tired from last night's tooth surgery stable back on LMWH set for transfer to [facility] tomorrow Objective - Vital Signs/Intake and Output Vital Signs (last 24 hours): Temp Pulse Resp BP Pulse Ox 97 F L 99 H 20 144/83 97 03/25/17 09:00 03/25/17 09:00 03/25/17 09:00 03/25/17 09:00 03/25/17 09:00 Intake and Output: 03/25/17 03/25/17 06:59 18:59 Intake Total 650 Balance 650 - Medications Medications: Current Medications Acetaminophen (Tylenol 325mg Tab) 650 mg PO Q4 PRN PRN Reason: Pain, Mild (1-3) Acetaminophen (Tylenol 325mg Tab) 325 mg PO Q4 PRN PRN Reason: Fever >100.4 F Apixaban (Eliquis) 5 mg PO BID [facility] PRN Reason: Protocol Last Admin: 03/22/17 08:17 Dose: 5 mg Aspirin (Ecotrin) 81 mg PO DAILY [facility] Last Admin: 03/21/17 08:13 Dose: 81 mg Atorvastatin Calcium (Lipitor) 40 mg PO HS [facility] Last Admin: 03/24/17 21:01 Dose: Not Given Calcitriol (Rocaltrol) 0.25 mcg PO DAILY [facility] Last Admin: 03/25/17 09:04 Dose: 0.25 mcg Calcium Carbonate (Oscal) 500 mg PO BID [facility] Last Admin: 03/25/17 09:00 Dose: 500 mg Collagenase (Santyl) 1 applic TOP 0600 [facility] Last Admin: 03/25/17 06:50 Dose: 1 applic Docusate Sodium (Colace) 100 mg PO BID [facility] Last Admin: 03/25/17 09:02 Dose: 100 mg Epoetin Tha (Procrit) 4,000 unit IV MWF@1630 [facility] Last Admin: 03/24/17 15:37 Dose: 4,000 unit Ergocalciferol (Drisdol 50,000 Intl Units Cap) 1 cap PO Q7D [facility] Last Admin: 03/19/17 09:30 Dose: 1 cap Fluconazole (Diflucan) 100 mg PO DAILY [facility] PRN Reason: Protocol Last Admin: 03/25/17 09:02 Dose: 100 mg Fluticasone Propionate (Flonase) 1 spr ALLAN BID PRN PRN Reason: Dry nasal passages Last Admin: 03/25/17 10:37 Dose: 1 spr Gabapentin (Neurontin) 300 mg PO TID [facility] Last Admin: 03/25/17 12:47 Dose: 300 mg Hydromorphone HCl (Dilaudid) 2 mg PO Q4 PRN PRN Reason: Pain scale 4-10 Last Admin: 03/25/17 13:23 Dose: 2 mg Vancomycin HCl 250 mg/ Sodium (Chloride) 100 mls @ 100 mls/hr IVPB MWF@2000 [facility] PRN Reason: Protocol Last Admin: 03/24/17 21:51 Dose: 100 mls/hr Ceftazidime/Avibactam 0.94 gm/ (Sodium Chloride) 100 mls @ 100 mls/hr IVPB MWF@ 2000 [facility] PRN Reason: Protocol Last Admin: 03/24/17 22:59 Dose: 100 mls/hr Gentamicin Sulfate 40 mg/ (Sodium Chloride) 51 mls @ 42.5 mls/hr IVPB MWF@2000 [facility] PRN Reason: Protocol Last Admin: 03/24/17 20:34 Dose: 42.5 mls/hr Sodium Chloride (Sodium Chloride 0.9%) 500 mls @ 10 mls/hr IV .Q24H [facility] Lactobacillus Acidophilus (Bacid Acidophilus) 1 cap PO BID [facility] Last Admin: 03/25/17 08:56 Dose: 1 cap Lamotrigine (Lamictal) 50 mg PO Q12 [facility] Last Admin: 03/25/17 09:03 Dose: 50 mg Lamotrigine (Lamictal) 100 mg PO Q12 [facility] Last Admin: 03/25/17 09:03 Dose: 100 mg Metoprolol Tartrate (Lopressor) 25 mg PO Q12 [facility] Last Admin: 03/25/17 09:00 Dose: 25 mg Ondansetron HCl (Zofran Inj) 4 mg IVP Q4 PRN PRN Reason: Nausea/Vomiting Pantoprazole Sodium (Protonix Ec Tab) 40 mg PO DAILY [facility] Last Admin: 03/25/17 09:02 Dose: 40 mg Repaglinide (Prandin) 1 mg PO ACTID [facility] Last Admin: 03/25/17 12:00 Dose: 1 mg Sennosides (Senokot Tab) 17.2 mg PO HS [facility] Last Admin: 03/24/17 21:01 Dose: Not Given Sevelamer HCl (Renagel) 1,600 mg PO TID [facility] Last Admin: 03/25/17 12:47 Dose: 1,600 mg Simethicone (Mylicon Chew Tab) 80 mg PO TID [facility] Last Admin: 03/25/17 12:47 Dose: 80 mg Triamcinolone Acetonide (Kenalog 0.1% In Orabase) 1 appl MM QID PRN PRN Reason: Toothache Vitamin B Complex/Vit C/Folic Acid (Nephro-Ajay) 1 tab PO DAILY [facility] Last Admin: 03/25/17 09:04 Dose: 1 tab - Labs Labs: 03/21/17 15:50 03/21/17 15:50 PT 14.8 Seconds (9.8-13.1) H 03/21/17 15:50 INR 1.3 (0.9-1.2) H 03/21/17 15:50 APTT 37.4 Seconds (25.6-37.1) H 03/21/17 15:50
--- NOTE | 2017-03-25 16:51 | PN ---
DATE: LOCATION: Room #625. SUBJECTIVE: This is a 46-year-old female with recent uncontrolled type 2 diabetes, now with optimal metabolic control on just oral hypoglycemic drug therapy as given. Her latest glucose levels have ranged from 99-115 mg/dl. So, at this time, we will continue the Prandin given as 1 mg p.o. t.i.d. before meals as ordered. She is scheduled for transfer to the [facility] for further physical therapy as noted. We will follow up with you. Irene Ambrose MD
[2017-03-25] MEDS: Sodium Chloride 0.9% 500 ML IV SCH (17:21)
--- NOTE | 2017-03-25 21:33 | CP.PCM.DIS ---
Provider - Provider Date of Admission: 02/24/17 20:51 Admission 03/26/17 Discharge Attending physician: Rakel Thomas MD Primary care physician: Rakel Thomas MD Time Spent in preparation of Discharge (in minutes): 60 Diagnosis - Discharge Diagnosis (1) Status post below knee amputation of right lower extremity Status: Acute Comment: Making progress in rehabilitation and needs to continue this so as to return home. (2) Infection of amputation stump of right lower extremity Status: Acute Priority: High Onset Date: ~08/24/16 Comment: Osteomyelitis involving the right tibia/fibula and patella - responding to iv antibiotics (3) DM type 2 (diabetes mellitus, type 2) Status: Chronic Priority: High Comment: Controlled on oral Prandin. Fingersticks are not to be done because of past hx of osteomyelitis of fingers. May use forearms - twice a day only. (4) ESRD (end stage renal disease) on dialysis Status: Chronic Comment: Hemodialysis has been 3x/week with iv antibiotics given afterward. (5) Diabetic retinopathy Status: Acute Comment: S/P LASER treatments - will need follow-up with ophthalmology. (6) Seizure disorder Status: Acute Comment: Controlled on Lamictal. 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 No further clotting since Eliquis and aspirin begun. Must avoid NSAIDs which increase clotting risk. 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 S/P endometrial ablation for menorrhagia. (9) Peripheral arterial occlusive disease Status: Chronic (10) Elevated liver enzymes Status: Acute Comment: Chronic, mild, possibly related to antibiotics. Hospital Course - Lab Results Lab Results: Most Recent Lab Values WBC 6.8 K/uL (4.8-10.8) 03/21/17 15:50 RBC 3.65 Mil/uL (3.80-5.20) L 03/21/17 15:50 Hgb 10.8 g/dL (12.0-16.0) L 03/21/17 15:50 Hct 34.3 % (34.0-47.0) 03/21/17 15:50 MCV 94.0 fl (81.0-99.0) 03/21/17 15:50 MCH 29.6 pg (27.0-31.0) 03/21/17 15:50 MCHC 31.5 g/dL (33.0-37.0) L 03/21/17 15:50 RDW 17.0 % (11.5-14.5) H 03/21/17 15:50 Plt Count 118 K/uL (130-400) L D 03/21/17 15:50 MPV 9.7 fl (7.2-11.7) 03/21/17 15:50 Neut % (Auto) 68.5 % (50.0-75.0) 03/21/17 15:50 Lymph % (Auto) 17.6 % (20.0-40.0) L 03/21/17 15:50 [place] % (Auto) 6.9 % (0.0-10.0) 03/21/17 15:50 Eos % (Auto) 6.2 % (0.0-4.0) H 03/21/17 15:50 Baso % (Auto) 0.8 % (0.0-2.0) 03/21/17 15:50 Neut # 4.7 K/uL (1.8-7.0) 03/21/17 15:50 Lymph # 1.2 K/uL (1.0-4.3) 03/21/17 15:50 [place] # 0.5 K/uL (0.0-0.8) 03/21/17 15:50 Eos # 0.4 K/uL (0.0-0.7) 03/21/17 15:50 Baso # 0.1 K/uL (0.0-0.2) 03/21/17 15:50 PT 14.8 Seconds (9.8-13.1) H 03/21/17 15:50 INR 1.3 (0.9-1.2) H 03/21/17 15:50 APTT 37.4 Seconds (25.6-37.1) H 03/21/17 15:50 Sodium 141 mmol/l (132-148) 03/21/17 15:50 Potassium 4.6 MMOL/L (3.6-5.0) 03/21/17 15:50 Chloride 101 mmol/L (98-107) 03/21/17 15:50 Carbon Dioxide 21 mmol/L (22-30) L 03/21/17 15:50 Anion Gap 24 (10-20) H 03/21/17 15:50 BUN 59 mg/dl (7-17) H 03/21/17 15:50 Creatinine 6.1 mg/dL (0.7-1.2) H 03/21/17 15:50 Est GFR ( Amer) 9 03/21/17 15:50 Est GFR (Non-Af Amer) 7 03/21/17 15:50 POC Glucose (mg/dL) 196 mg/dL (65-110) H 03/25/17 16:09 Random Glucose 149 mg/dL (65-105) H 03/21/17 15:50 Hemoglobin A1c 6.8 % (4.2-6.5) H 03/10/17 15:21 Calcium 9.3 mg/dL (8.4-10.2) 03/21/17 15:50 Phosphorus 2.9 mg/dl (2.5-4.5) 03/07/17 21:00 Iron 54 ug/dL (37-170) 03/03/17 17:15 TIBC 208 ug/dL (250-450) L 03/03/17 17:15 % Saturation 26 % (20-55) 03/03/17 17:15 Ferritin 732.0 ng/Ml (6.24-137.0) H 03/03/17 17:15 Total Bilirubin 0.4 mg/dl (0.2-1.3) 03/21/17 15:50 AST 30 U/L (14-36) 03/21/17 15:50 ALT 51 U/L (9-52) 03/21/17 15:50 Alkaline Phosphatase 207 U/L (38-126) H 03/21/17 15:50 Total Protein 8.7 G/DL (6.3-8.2) H 03/21/17 15:50 Albumin 4.6 g/dL (3.5-5.0) 03/21/17 15:50 Globulin 4.1 gm/dL (2.2-3.9) H 03/21/17 15:50 Albumin/Globulin Ratio 1.1 (1.0-2.1) 03/21/17 15:50 Triglycerides 113 mg/DL (0-149) D 03/10/17 15:21 Cholesterol 98 mg/dL (0-199) 03/10/17 15:21 LDL Cholesterol Direct < 30 mg/dL (0-129) 03/10/17 15:21 HDL Cholesterol 39 MG/DL (30-70) 03/10/17 15:21 Beta HCG, Quant < 2.39 mIU/mL 03/24/17 16:37 PTH Intact Whole Molec 302 pg/mL (14-64) H 03/07/17 21:00 Gentamicin Trough < 0.6 ug/mL (0.0-0.9) 03/19/17 17:30 Vancomycin Trough 8.0 ug/mL (5.0-10.0) 03/19/17 17:30 Hepatitis A IgM Ab Negative (NEGATIVE) 02/28/17 16:29 Hep Bs Antigen Negative (NEGATIVE) 02/28/17 16:29 Hep Bs Antibody Positive (NEGATIVE) 03/03/17 17:00 Hep B Core IgM Ab Negative (NEGATIVE) 02/28/17 16:29 Hepatitis C Antibody Negative (NEGATIVE) 02/28/17 16:29 Blood Type AB POSITIVE 03/22/17 13:00 Antibody Screen Negative 03/22/17 13:00 BBK History Checked Patient has bt 03/22/17 13:00 - Hospital Course Hospital Course: 46 year old gentlewoman with a complex history of insulin dependent diabetes mellitus, end stage renal disease on hemodialysis, thrombophilis (due to protein C & S deficiencies and anti-heparin antibodies) was admitted to [facility] on 08/27/16 with inflammation of the right lower leg. She had been under podiatric care for the previous 6 months for a Charcot joint of the right ankle with a non-healing ulcer. Within hours she developed septic shock and suffered a seizure. After extensive ICU care she was ultimately diagnosed with osteomyelitis of the right ankle and lower leg and required right below the knee amputation on 10/01/16. This required two subsequent revisions (on 11/22 and 12/02). Along the way she developed an infected abrasion of the right patella. The right BK wound dehisced and was found to be infected by multidrug resistant Klebsiella pneumoniae. The osteomyelitis also spread to the right patella. Dr. Levon Lemon managed the infectious disease complication and multiple antibiotics. With the use of several combined iv antibiotics (which continue) and finally with negative pressure wound therapy (wound vac), the BK surgical wound has been healing well. The patellar infection was also responding to chemical debridement with Santyl. Vascular evaluation and the several surgeries involving the right leg were done by Drs. Magan Mccormack and Dariel Doran, vascular surgeons. They continued to provide ongoing post-surgical care with the help of the wound care nursing team. A number of sacral decubitus ulcerations and left knee skin breakdown were managed with success by the wound care team. Previous history involved a coagulopathy involving thrombophilia. Because of the need for hemodialysis, multiple AV fistulae were created and subsequently clotted. On one occasion an attempt was made to de-clot a femoral AV fistula, which resulted in embolization of thrombus to the left leg, and she required a left BK amutation . Vascular occlusion to the digits caused loss of her third right fnger due to osteomyelitis. 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 When the cause of these vascular occlusions was finally identified, the patient was placed on Eliquis and aspirin and all forms of heparin were avoided. Other complications involved pneumonia - treated with antibiotics and nebulizer therapy (Dr. Richard Folres) and brittle diabetes which required complex adjustments of oral and subcutaneous insulins by administrator (Dr. Richard Ambrose). After being started on anti-seizure medication by Dr. Danii Maguire there were no further seizures, but Topamax had to be stopped due to gallstone and replace by Lamictal. This has been gradually increased to 150mg q12h. The dose should remain at that therapeutic level for 18 months. Anemia was caused by multiple factors (dialysis, renal disease, antibiotics), but mainly was caused by severe menorrhagia. Endometrial ablation was performed by Dr. Tierney Larry (mobile heavy equipment mechanic) with resultant cessation of menses and improved red blood cell counts. The pathology of the uterine specimens was negative for malignancy. Hematology problems involving managing coagulation problems, a number of transfusions of red blood cells, and related issues were resolved by Dr. Evita Shepard. Dr. Guadarrama has adjusted the Procrit (epogen) dosing to maintain Hgb around 11. Opthalmology examination performed by Dr. july Hernandez revealed normal intra- ocular pressures, but there was severe diabetic retinopathy. Arrangements were made for her to have LASER treatment for this at his facility on 02/11/17 and again on 02/18. She subsequently developed some inflammation of the left eye and was briefly treated with Tobradex eye drops. The patient's ESRD has been managed by Dr. Alta Guadarrama and colleagues. She has a right subclavian Permacath which has held up well. Hemodialysis has been done every MWF, but after discharge to [facility] will be , Fri. At one point the patient had tachycardia (SVT) to 130 and elevated blood pressure. Watch Repair Person Dr. Gallito Shepard recommended that we use low dose beta- katiuska (avoiding high doses because of risk of vasospasm), and this was successful. Mildly elevated LFT's in the presence of gallstones - prompted stopping Topamax. Ultrasound showed no gallbladder thickening or ductal obstruction and the patient is asymptomatic. We are watching this. The patient needed 2 PICC lines (the first by Dr. Levon Heck, the second by Dr. Cameron Caicedo), which were difficult to accomplish since the patient has very little usable vasculature. A left femoral vein PICC line continues to function well. Because heparin cannot be used, an iv of NSS at 10ml/hr has been used to keep the vein open. Type II diabetes mellitus was at times difficult to control and was managed by Dr. Gallito Ambrose. After initially needing insulin, the patient is now well managed on Prandin orally. Intensive Physical and Occupational Therapy has been started - so well that the patient is able to transfer (with assistance) using a sliding board from bed to chair and back. She can stand on her left BK prosthesis (again, with assistance ). Upper body and truncal stability have been improving, and she is now being transferred to [facility] where we will also be continuing wound and IV antibiotic therapy along with subacute rehabilitative therapies. NOTE: Allergies/Adverse Reactions: Allergy/AdvReac Type Severity heparin Severe CLOTTING Beta-Blockers Mild Risk of vasospasm tramadol [From Ultram] potential for vasoconstriction NSAIDs risk of clotting Discharge Exam - Head Exam Head Exam: NORMAL INSPECTION - Eye Exam Eye Exam: Normal appearance Additional comments: Diabetic retinopathy - s/p LASER tx - ENT Exam ENT Exam: Normal Exam - Neck Exam Neck exam: Normal Inspection Additional comments: Right subclavian Permacath intact. - Respiratory Exam Respiratory Exam: Clear to PA & Lateral, NORMAL BREATHING PATTERN - Cardiovascular Exam Cardiovascular Exam: REGULAR RHYTHM, +S1, +S2 - GI/Abdominal Exam GI & Abdominal Exam: Normal Bowel Sounds, Soft - Rectal Exam Rectal Exam: Deferred - Exam External exam: NORMAL EXTERNAL EXAM - Extremities Exam Additional comments: Missing right 3rd finger and left 2nd, 3rd, 4th fingers secondary to amputations. L 5th finger is contracted. Weak radial pulses bilaterally. Left BK residual limb is warm and non-tender and without lesions. Right BK wound vac in place and patellar dressing in place. - Healing BK site approx. 1 x 4 cm with 100% granulation tissue. R patellar wound approc 3-4cm in diameter with 10% central necrotic tissue and good surrounding granulation tissues. Both wounds making great progress. L femoral vein PICC line in place. - Back Exam Back exam: NORMAL INSPECTION - Neurological Exam Neurological exam: Abnormal Gait, Alert, CN II-XII Intact, Oriented x3 Additional comments: Bilateral BK amputee - Psychiatric Exam Psychiatric exam: Normal Affect, Normal Mood - Skin Skin Exam: Dry, Normal Color (V), Warm - Additional Findings Additional findings: Vital Signs: Temp 98 Pulse 93 BP 148/83 R unlabored 69 in weight (est'd) 200 lb. Discharge Plan - Discharge Medications Prescriptions: cefTAZidime/Avibactam [Avycaz] 0.94 gm IVPB TTS #1 vial Lactobacillus Acidophilus [Bacid Acidophilus] 1 cap PO BID #60 cap Docusate [Colace] 100 mg PO BID #60 cap Fluconazole [Diflucan] 100 mg PO DAILY #30 tab HYDROmorphone [Dilaudid] 2 mg PO Q4 PRN #60 tab PRN Reason: Pain, Moderate (4-7) Ergocalciferol [Drisdol 50,000 Intl Units Cap] 1 cap PO Q7D #7 cap Aspirin [Ecotrin] 81 mg PO DAILY #30 tabec Apixaban [Eliquis] 5 mg PO BID #60 tab Gentamicin 60mg/50ml NS 40 mg IV TTS #1 bag lamoTRIgine [Lamictal] 100 mg PO Q12 #60 tab lamoTRIgine [Lamictal] 50 mg PO Q12 #60 tab Atorvastatin [Lipitor] 40 mg PO HS #30 tab Metoprolol Tartrate [Lopressor] 25 mg PO Q12 #60 tab Polyethylene Glycol 3350 [Miralax] 8.5 gm PO HS #30 powd.pack Simethicone [Mylicon Chew Tab] 80 mg PO TID PRN #90 chew PRN Reason: Flatulence Vitamin B Complex/Vit C/Folic [Nephro-Ajay] 1 tab PO DAILY #30 tab Gabapentin [Neurontin] 300 mg PO TID #90 cap Calcium Carbonate [Oscal] 500 mg PO BID #60 tab Repaglinide [Prandin] 1 mg PO ACTID #90 tab Epoetin Tha [Procrit] 4,000 unit IV TTS #1 ml Pantoprazole [Protonix EC Tab] 40 mg PO DAILY #30 ect Sevelamer [Renagel] 1,600 mg PO TID #120 tab Calcitriol [Rocaltrol] 0.25 mcg PO DAILY #30 sgl Collagenase [Santyl] 1 applic TOP 0600 #7 tube Sennosides A and B [Senokot Tab] 17.2 mg PO HS PRN #30 tab PRN Reason: Constipation Sodium Chloride 0.45% 500ml [Sodium Chloride 0.45%] 500 ml IV CONT #10 evelyn Acetaminophen [Tylenol 325mg tab] 325 mg PO Q4 PRN #30 tab PRN Reason: Fever >100.4 F Vancomycin/0.9 % Sod Chloride [Vanco 500 mg/100 ml-0.9% NaCl] 250 mg IV TTS #7 - Follow Up Plan Condition: GOOD Disposition: REHAB FACILITY/REHAB UNIT Patient education suggested?: No Additional Instructions: NO HEPARIN WITH HEMODIALYSIS. NO FINGERSTICKS AT ANY TIME. Clinical Quality Measures - CQM - Stroke Antithrombotic Prescribed: Yes - CQM - VTE Did patient receive overlap therapy during hosptialization?: Yes - Date & Time of Discharge Summary Date of Discharge Summary: 03/26/17
[2017-03-26] MEDS: Santyl Collagenase OINTMENT TOP SCH (06:21)
[2017-03-26] MEDS: Ergocalciferol 50,000 Intl Units Cap PO SCH (08:45)
[2017-03-26] MEDS: Simethicone 80 mg Chewtab PO SCH ×2 (08:47→12:28)
[2017-03-26] MEDS: Multivitamin Vitamin B Complex (Nephro-Vite) Tab PO SCH (08:47)
[2017-03-26] MEDS: Pantoprazole 40 mg EC Tab PO SCH (08:48)
[2017-03-26 08:55] VITALS: O2SAT 96
[2017-03-26] MEDS ORDERED: Vancomycin 250 MG in Sodium Chloride 0.9% 100 ML IVPB SCH (09:00)
[2017-03-26] MEDS: Lactobacillus Acidophilus 500 MU Cap PO SCH (09:50)
[2017-03-26] MEDS ORDERED: Gentamicin 40 MG in Sodium Chloride 0.9% 50 ML IVPB SCH (10:30)
[2017-03-26] MEDS ORDERED: Epoetin Alfa 4000 UNIT/ML Inj IV SCH (11:30)
--- NOTE | 2017-03-26 11:56 | CP.PCM.PN ---
Subjective - Date & Time of Evaluation Date of Evaluation: 03/26/17 Time of Evaluation: 11:00 - Subjective Subjective: Dialysis note she was seen on HD now . doing well tolerating no complaints P/E chest clear Ht no rubs abd soft. A/P dish after HD to [facility] UF 3500 cc now NA bath 2 meq BP well RT. sub clavian access ok F/U out patient discussed with primary MD Objective - Vital Signs/Intake and Output Vital Signs (last 24 hours): Temp Pulse Resp BP Pulse Ox 97.9 F 103 H 19 149/54 L 96 03/26/17 08:53 03/26/17 08:55 03/26/17 08:53 03/26/17 08:55 03/26/17 08:53 Intake and Output: 03/26/17 03/26/17 06:59 18:59 Intake Total 910 Balance 910 - Medications Medications: Current Medications Acetaminophen (Tylenol 325mg Tab) 650 mg PO Q4 PRN PRN Reason: Pain, Mild (1-3) Acetaminophen (Tylenol 325mg Tab) 325 mg PO Q4 PRN PRN Reason: Fever >100.4 F Apixaban (Eliquis) 5 mg PO BID [facility] PRN Reason: Protocol Last Admin: 03/26/17 08:46 Dose: 5 mg Aspirin (Ecotrin) 81 mg PO DAILY [facility] Last Admin: 03/26/17 08:46 Dose: 81 mg Atorvastatin Calcium (Lipitor) 40 mg PO HS [facility] Last Admin: 03/25/17 21:56 Dose: 40 mg Calcitriol (Rocaltrol) 0.25 mcg PO DAILY [facility] Last Admin: 03/26/17 08:49 Dose: 0.25 mcg Calcium Carbonate (Oscal) 500 mg PO BID [facility] Last Admin: 03/26/17 09:50 Dose: 500 mg Collagenase (Santyl) 1 applic TOP 0600 [facility] Last Admin: 03/26/17 06:21 Dose: 1 applic Docusate Sodium (Colace) 100 mg PO BID [facility] Last Admin: 03/26/17 08:44 Dose: 100 mg Epoetin Tha (Procrit) 4,000 unit IV MWF@1130 [facility] Ergocalciferol (Drisdol 50,000 Intl Units Cap) 1 cap PO Q7D [facility] Last Admin: 03/26/17 08:45 Dose: 1 cap Fluconazole (Diflucan) 100 mg PO DAILY [facility] PRN Reason: Protocol Last Admin: 03/26/17 08:45 Dose: 100 mg Fluticasone Propionate (Flonase) 1 spr ALLAN BID PRN PRN Reason: Dry nasal passages Last Admin: 03/25/17 10:37 Dose: 1 spr Gabapentin (Neurontin) 300 mg PO TID [facility] Last Admin: 03/26/17 08:48 Dose: 300 mg Hydromorphone HCl (Dilaudid) 2 mg PO Q4 PRN PRN Reason: Pain scale 4-10 Last Admin: 03/26/17 08:42 Dose: 2 mg Sodium Chloride (Sodium Chloride 0.9%) 500 mls @ 10 mls/hr IV .Q24H [facility] Last Admin: 03/25/17 17:21 Dose: 10 mls/hr Gentamicin Sulfate 40 mg/ (Sodium Chloride) 51 mls @ 42.5 mls/hr IVPB MWF@1030 [facility] PRN Reason: Protocol Last Admin: 03/26/17 11:13 Dose: 42.5 mls/hr Vancomycin HCl 250 mg/ Sodium (Chloride) 100 mls @ 100 mls/hr IVPB MWF@0900 [facility] PRN Reason: Protocol Last Admin: 03/26/17 09:43 Dose: 100 mls/hr Ceftazidime/Avibactam 0.94 gm/ (Sodium Chloride) 100 mls @ 100 mls/hr IVPB MWF@ 1230 [facility] PRN Reason: Protocol Lactobacillus Acidophilus (Bacid Acidophilus) 1 cap PO BID [facility] Last Admin: 03/26/17 09:50 Dose: 1 cap Lamotrigine (Lamictal) 50 mg PO Q12 [facility] Last Admin: 03/26/17 08:46 Dose: 50 mg Lamotrigine (Lamictal) 100 mg PO Q12 [facility] Last Admin: 03/26/17 08:46 Dose: 100 mg Metoprolol Tartrate (Lopressor) 25 mg PO Q12 [facility] Last Admin: 03/26/17 08:55 Dose: Not Given Ondansetron HCl (Zofran Inj) 4 mg IVP Q4 PRN PRN Reason: Nausea/Vomiting Pantoprazole Sodium (Protonix Ec Tab) 40 mg PO DAILY [facility] Last Admin: 03/26/17 08:48 Dose: 40 mg Repaglinide (Prandin) 1 mg PO ACTID [facility] Last Admin: 03/26/17 08:48 Dose: 1 mg Sennosides (Senokot Tab) 17.2 mg PO HS [facility] Last Admin: 03/25/17 21:56 Dose: 17.2 mg Sevelamer HCl (Renagel) 1,600 mg PO TID [facility] Last Admin: 03/26/17 08:48 Dose: 1,600 mg Simethicone (Mylicon Chew Tab) 80 mg PO TID [facility] Last Admin: 03/26/17 08:47 Dose: 80 mg Triamcinolone Acetonide (Kenalog 0.1% In Orabase) 1 appl MM QID PRN PRN Reason: Toothache Vitamin B Complex/Vit C/Folic Acid (Nephro-Ajay) 1 tab PO DAILY [facility] Last Admin: 03/26/17 08:47 Dose: 1 tab - Labs Labs: 03/21/17 15:50 03/21/17 15:50 PT 14.8 Seconds (9.8-13.1) H 03/21/17 15:50 INR 1.3 (0.9-1.2) H 03/21/17 15:50 APTT 37.4 Seconds (25.6-37.1) H 03/21/17 15:50 Assessment and Plan (1) CKD (chronic kidney disease) stage V requiring chronic dialysis Status: Acute (2) 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
[2017-03-26] MEDS: Sodium Chloride 0.9% 500 ML IV SCH (12:26)
[2017-03-26 13:56] VITALS: BP 142/70; PULSE 109; RESP 20; TEMP 97.7
--- NOTE | 2017-03-27 13:01 | PN ---
DATE: ENDOCRINOLOGY FOLLOWUP NOTE LOCATION: Room 625. SUBJECTIVE: This is a 46-year-old female with recent uncontrolled type 2 diabetes, now with improved glycemic profile on just a low dose oral hypoglycemic therapy as given. She is scheduled for transfer today to the [facility] for ongoing subacute rehabilitation therapy. Her glycemic levels are much improved and have ranged from 111-196 mg/dL. So, at this time, we will continue the Prandin given as 1 mg p.o. t.i.d. before meals as given. We will titrate incremental as indicated to optimize metabolic control. We will follow and advise accordingly. Irene Ambrose MD
== END 2017-03-26 14:45 | DRG 559 ==
PROVIDERS: ADMIT Internal Medicine; ATTEND Internal Medicine
PROC: F07Z9FZ Gait Training/Functional Ambulation Treatment using Assistive, Adaptive, Supportive or Protective Equipment (ICD-10-PCS; principal; 2017-02-24)
PROC: 3E03329 Introduction of Other Anti-infective into Peripheral Vein, Percutaneous Approach (ICD-10-PCS; 2017-02-24)
PROC: F08Z4FZ Home Management Treatment using Assistive, Adaptive, Supportive or Protective Equipment (ICD-10-PCS; 2017-02-24)
PROC: F07L6FZ Therapeutic Exercise Treatment of Musculoskeletal System - Lower Back / Lower Extremity using Assistive, Adaptive, Supportive or Protective Equipment (ICD-10-PCS; 2017-02-25)
PROC: 5A1D70Z Performance of Urinary Filtration, Intermittent, Less than 6 Hours Per Day (ICD-10-PCS; 2017-02-26)
DX: Z47.81 Encounter for orthopedic aftercare following surgical amputation (principal); N18.6 End stage renal disease; D68.59 Other primary thrombophilia; I12.0 Hypertensive chronic kidney disease with stage 5 chronic kidney disease or end stage renal disease; T87.43 Infection of amputation stump, right lower extremity; D68.8 Other specified coagulation defects; Z89.511 Acquired absence of right leg below knee; L89.159 Pressure ulcer of sacral region, unspecified stage; Z89.512 Acquired absence of left leg below knee; I47.1 Supraventricular tachycardia; E11.22 Type 2 diabetes mellitus with diabetic chronic kidney disease; D63.8 Anemia in other chronic diseases classified elsewhere; E11.319 Type 2 diabetes mellitus with unspecified diabetic retinopathy without macular edema; E11.51 Type 2 diabetes mellitus with diabetic peripheral angiopathy without gangrene; E11.65 Type 2 diabetes mellitus with hyperglycemia; Z89.022 Acquired absence of left finger(s); E78.5 Hyperlipidemia, unspecified; G40.909 Epilepsy, unspecified, not intractable, without status epilepticus; I77.6 Arteritis, unspecified; K80.20 Calculus of gallbladder without cholecystitis without obstruction; Z79.4 Long term (current) use of insulin; L08.89 Other specified local infections of the skin and subcutaneous tissue; M14.671 Charcot's joint, right ankle and foot; N92.0 Excessive and frequent menstruation with regular cycle; E55.9 Vitamin D deficiency, unspecified; Y83.5 Amputation of limb(s) as the cause of abnormal reaction of the patient, or of later complication, without mention of misadventure at the time of the procedure; Z16.24 Resistance to multiple antibiotics; S02.5XXA Fracture of tooth (traumatic), initial encounter for closed fracture; Z99.2 Dependence on renal dialysis; Z79.2 Long term (current) use of antibiotics; Z79.82 Long term (current) use of aspirin; Z88.8 Allergy status to other drugs, medicaments and biological substances; Z87.01 Personal history of pneumonia (recurrent); X58.XXXA Exposure to other specified factors, initial encounter; Y92.239 Unspecified place in hospital as the place of occurrence of the external cause

== ENCOUNTER 2017-03-24 13:28 | Day surgery (SDC) | payer MEDICARE, MEDICAID ==
[2017-03-24 16:44] VITALS: TEMP 98.1
[2017-03-24 17:04] VITALS: BMI 37.9
[2017-03-24] MEDS ORDERED: Lidocaine 1% Inj (20ml) ONE (18:38)
[2017-03-24] MEDS ORDERED: EPINEPHrine 1 mg/ml (1:1000) Inj ONE (18:38)
[2017-03-24] MEDS ORDERED: Lidocaine 2% w Epi 1:100,000 Inj IJ ONE ×2 (18:40→18:43)
[2017-03-24] MEDS ORDERED: Lactated Ringer's 1,000 ML IV ONE (18:43)
[2017-03-24] MEDS ORDERED: Dextrose 5%/0.45% NS 1,000 ML IV ONE (19:05)
[2017-03-24 20:01] VITALS: BP 131/98; PULSE 101; RESP 18; O2SAT 96
--- NOTE | 2017-03-26 22:04 | PN ---
DATE: SUBJECTIVE: Patient who is 46 years of age, has been in the hospital for very long time. She is out of bed, feeling much better. Appetite is good. No nausea. No vomiting. PHYSICAL EXAMINATION: VITAL SIGNS: Blood pressure 144/83, pulse 99 with a temperature of 97. NECK: Supple. CHEST: Clear. HEART: No rubs. ABDOMEN: Soft. EXTREMITIES: Bilateral below-knee amputation. Patient has wound on the right stump area and has been healing very well throughout the cause of the hospitalization with wound care, multiple antibiotics and has been improving and patient is scheduled to go tomorrow to [facility] for further physiotherapy and dialysis as outpatient. Therefore, we will schedule her for hemodialysis for tomorrow morning, so she can be discharged in the afternoon and in summary, her medical problem is the diabetes mellitus, status post amputation, status post wound infection, she is still on multiple antibiotics; hyperphosphatemia. Patient has been receiving Eliquis for coagulopathy related issue and overall, patient is doing much better. Volodymyr Guadarrama MD [place]
== END 2017-03-24 20:15 | disposition still patient (30) ==
LOC: H.OPSURG 13:28
PROVIDERS: ATTEND Dentist
DX: K04.7 Periapical abscess without sinus (principal); E11.9 Type 2 diabetes mellitus without complications; E78.5 Hyperlipidemia, unspecified; I10 Essential (primary) hypertension; G40.909 Epilepsy, unspecified, not intractable, without status epilepticus; N19 Unspecified kidney failure
CPT/HCPCS: 41899; 82948; 88300; J7030; J7042; J7120

== ENCOUNTER 2017-06-10 11:51 | Inpatient (IN) | payer MEDICARE, MEDICAID ==
[2017-06-10 11:51] VITALS: BMI 37.9
--- NOTE | 2017-06-10 13:15 | ED PDOC ---
HPI: CCC, URI, Sore Throat Time Seen by Provider: 06/10/17 12:25 Chief Complaint (Nursing): Fever History Per: Patient History/Exam Limitations: no limitations Have you had recent travel within the past 21 days to any of the following countries: [place], [place], [place] or [place]?: No Onset/Duration Of Symptoms: Days (3), Gradual Current Symptoms Are (Timing): Still Present Location Of Pain: Diffuse Myalgias, Headache. denies: Ear(s), Throat, Sinus/es Associated Symptoms: Fever, Chills, Cough, Myalgias. denies: Sputum, Nasal Congestion, Nausea, Vomiting, Diarrhea Ear Symptoms: Bilateral: None Severity: Moderate Additional History Per: Patient Additional Complaint(s): Sent from [facility] for headache, fever, cough, congestion x3 days. Hx of bilateral BKA, HD pt (Friday, , Friday). sent in dr Dr xavier PMD Past Medical History Reviewed: Historical Data, Nursing Documentation, Vital Signs Vital Signs: Last Vital Signs Temp 100.4 F H 06/10/17 13:16 Pulse 116 H 06/10/17 11:54 Resp 20 06/10/17 11:54 BP 117/88 06/10/17 11:54 Pulse Ox 100 06/10/17 15:32 - Medical History PMH: Anemia, Diabetes, HTN, Hypercholesterolemia, Pneumonia, End Stage Renal Disease, Chronic Kidney Disease, Seizures (see hpi) Denies: HIV, Kidney Stones - Family History Family History: States: Unknown Family Hx - Living Arrangements Living Arrangements: Care Home/Assist Lvng - Social History Current smoker - smoking cessation education provided: No - Immunization History Hx Tetanus Toxoid Vaccination: Yes Hx Influenza Vaccination: Yes Hx Pneumococcal Vaccination: Yes - Home Medications Home Medications: Ambulatory Orders Medication Instructions Recorded Acetaminophen [Tylenol 325mg tab] 325 mg PO Q4 PRN #30 tab 03/25/17 Aspirin [Ecotrin] 81 mg PO DAILY #30 tabec 03/25/17 Atorvastatin [Lipitor] 40 mg PO HS #30 tab 03/25/17 Calcitriol [Rocaltrol] 0.25 mcg PO DAILY #30 sgl 03/25/17 Calcium Carbonate [Oscal] 500 mg PO BID #60 tab 03/25/17 Docusate [Colace] 100 mg PO BID #60 cap 03/25/17 Lactobacillus Acidophilus [Bacid 1 cap PO BID #60 cap 03/25/17 Acidophilus] Metoprolol Tartrate [Lopressor] 25 mg PO Q12 #60 tab 03/25/17 Pantoprazole [Protonix EC Tab] 40 mg PO DAILY #30 ect 03/25/17 Sevelamer [Renagel] 1,600 mg PO TID #120 tab 03/25/17 Simethicone [Mylicon Chew Tab] 80 mg PO TID PRN #90 chew 03/25/17 Vitamin B Complex/Vit C/Folic 1 tab PO DAILY #30 tab 03/25/17 [Nephro-Aajy] Acetaminophen [Tylenol 325mg tab] 650 mg PO Q4H PRN 06/10/17 Apixaban [Eliquis] 5 mg PO Q12H 06/10/17 Benzonatate 200 mg PO TID 06/10/17 Ergocalciferol [Drisdol 50,000 1 cap PO WE 06/10/17 Intl Units Cap] Fluticasone Nasal [Flonase] 1 spray ALLAN Q12H PRN 06/10/17 Gabapentin [Neurontin] 300 mg PO Q8H 06/10/17 HYDROmorphone [Dilaudid] 2 mg PO DAILY PRN 06/10/17 HYDROmorphone [Dilaudid] 2 mg PO Q4H PRN 06/10/17 Lamotrigine [Lamictal] 150 mg PO Q12H 06/10/17 Linagliptin [Tradjenta] 5 mg PO DIN 06/10/17 Loratadine [Claritin] 10 mg PO DAILY 06/10/17 Ondansetron [Zofran Tab] 4 mg PO Q4H PRN 06/10/17 Polyethylene Glycol 3350 [Miralax] 17 gm PO HS 06/10/17 Repaglinide [Prandin] 2 mg PO ACTID 06/10/17 Sennosides A and B [Senokot Tab] 8.6 mg PO DAILY PRN 06/10/17 Silver Sulfadiazine 1% [Silvadene 1 appl TOP QPM 06/10/17 1%] Vitamin A & D [Vitamin A & D Oint 1 appl TOP DAILY 06/10/17 UD Foilpak] guaiFENesin/Dextromethorphan 10 ml PO Q4H PRN 06/10/17 [Robitussin DM] - Allergies Allergies/Adverse Reactions: Allergies Allergy/AdvReac Type Severity Reaction Status Date / Time heparin AdvReac Severe ANAPHYLAXIS Verified 02/09/17 17:46 NSAIDS (Non-Steroidal AdvReac Severe ANAPHYLAXIS Verified 03/24/17 08:37 Anti-Inflamma Beta-Blockers AdvReac Mild none of Verified 12/29/16 10:25 (Beta-Adrenergic Bloc the listed reactions tramadol [From Ultram] AdvReac Unknown potential Verified 09/18/16 10:41 vasoconstriction Review of Systems ROS Statement: Except As Marked, All Systems Reviewed And Found Negative Constitutional: Positive for: Fever, Chills, Malaise Cardiovascular: Negative for: Chest Pain, Palpitations Respiratory: Positive for: Cough. Negative for: Shortness of Breath Gastrointestinal: Negative for: Nausea, Vomiting, Abdominal Pain Skin: Negative for: Rash Neurological: Negative for: Weakness, Numbness Physical Exam - Reviewed Nursing Documentation Reviewed: Yes Vital Signs Reviewed: Yes - Physical Exam Appears: Positive for: Uncomfortable Head Exam: Positive for: ATRAUMATIC, NORMAL INSPECTION, NORMOCEPHALIC Skin: Positive for: Normal Color, Warm, Dry. Negative for: Rash Eye Exam: Positive for: Normal appearance, EOMI, PERRL ENT: Positive for: Pharynx Is (clear,mmm). Negative for: Pharyngeal Erythema, Tonsillar Exudate, Tonsillar Swelling Neck: Positive for: Normal, Painless ROM, Supple. Negative for: Decreased ROM, Limited ROM, Trachea Midline Cardiovascular/Chest: Positive for: Regular Rate, Rhythm, Other (right perm a cath). Negative for: Chest Non Tender, Edema, Gallop, Murmur, Bradycardia, Tachycardia Respiratory: Positive for: Normal Breath Sounds. Negative for: Decreased Breath Sounds, Accessory Muscle Use, Crackles, Rales, Rhonchi, Stridor, Wheezing , Respiratory Distress Pulses-Radial (L): 2+ Pulses-Radial (R): 2+ Gastrointestinal/Abdominal: Positive for: Normal Exam, Bowel Sounds, Soft. Negative for: Tenderness Back: Positive for: Normal Inspection. Negative for: L CVA Tenderness, R CVA Tenderness, Vertebral Tenderness Extremity: Positive for: Normal ROM (s/p bl bka). Negative for: Pedal Edema, Calf Tenderness, Swelling Neurologic/Psych: Positive for: Alert, mechanotherapist II-XII, Oriented. Negative for: Motor/Sensory Deficits - Laboratory Results Result Diagrams: 06/10/17 13:30 06/10/17 13:30 - ECG ECG: Positive for: Interpreted By Me ECG Rhythm: Positive for: Normal QRS, Normal ST Segment, Sinus Tachycardia Interpretation Of Abn EKG: peaked t waves,no evidence of ischemia O2 Sat by Pulse Oximetry: 100 Pulse Ox Interpretation: Normal - Radiology X-Ray: Interpreted by Me X-Ray Interpretation: No Acute Disease - Progress ED Course And Treament: per Dr xavier will give abx and admit for dialysis. tamiflu not indicated. pt agree's with plan. Re-evaluation Time: 15:29 Condition: Improved Disposition - Clinical Impression Clinical Impression: Influenza A - Patient ED Disposition Is Patient to be Admitted: Yes Counseled Patient/Family Regarding: Studies Performed, Diagnosis, Need For Followup - Disposition Disposition Time: 15:32 Condition: STABLE Instructions: Influenza (ED) Forms: Notehall (German) - Pt Status Changed To: Hospital Disposition Of: Observation - POA Present On Arrival: None
[2017-06-10 13:44] LABS: BASO # 0.1 K/uL (0.0-0.2); BASO % 0.7 % (0.0-2.0); EOS # 0.1 K/uL (0.0-0.7); EOS % 1.4 % (0.0-4.0); HEMOGLOBIN 10.4 g/dL (12.0-16.0); LYMPH # 1.2 K/uL (1.0-4.3); LYMPH % 13.2 % (20.0-40.0); MEAN CELL VOLUME 95.7 fl (81.0-99.0); MEAN CORPUSCULAR HEMOGLOBIN 31.4 pg (27.0-31.0); MEAN CORPUSCULAR HGB CONC 32.8 g/dL (33.0-37.0); MONO # 1.3 K/uL (0.0-0.8); NEUT # 6.6 K/uL (1.8-7.0); NEUT % 70.7 % (50.0-75.0); RBC 3.31 Mil/uL (3.80-5.20); RED CELL DISTRIBUTION WIDTH 17.5 % (11.5-14.5); WHITE BLOOD COUNT 9.3 K/uL (4.8-10.8)
[2017-06-10 13:44] LABS: VENOUS BLOOD GAS BASE EXCESS -0.9 mmol/L (0.0-2.0); VENOUS BLOOD GAS PCO2 50 mmHg (40-60); VENOUS BLOOD GAS PO2 29 mm/Hg (30-55); VENOUS BLOOD PH 7.32 (7.32-7.43)
[2017-06-10 14:16] LABS: ALB/GLOB RATIO 1.1 (1.0-2.1); ALBUMIN 4.4 g/dL (3.5-5.0); CALCIUM 8.9 mg/dL (8.4-10.2); MAGNESIUM 2.7 MG/DL (1.6-2.3)
--- NOTE | 2017-06-10 14:39 | RAD ---
PROCEDURE: CHEST RADIOGRAPH, 1 VIEW HISTORY: Cough COMPARISON: 03/22/2017. FINDINGS: The right-sided dialysis catheter terminates in the right atrium. LUNGS: The lungs are well inflated and clear. There is mild pulmonary venous congestion. No focal consolidation. PLEURA: No pneumothorax or pleural fluid seen. CARDIOVASCULAR: Normal. OSSEOUS STRUCTURES: No significant abnormalities. VISUALIZED UPPER ABDOMEN: Normal. OTHER FINDINGS: None. IMPRESSION: Right-sided dialysis catheter terminates in the right atrium. Mild pulmonary venous congestion. No focal consolidation.
[2017-06-10 14:46] LABS: INR 1.5 (0.9-1.2); PARTIAL THROMBOPLASTIN TIME 38.9 Seconds (25.6-37.1)
[2017-06-10] MEDS ORDERED: Sod Polystyrene Sulf 15 gm/60 ml Susp PO STA (14:46)
[2017-06-10] MEDS ORDERED: Moxifloxacin IV 400mg/250ml NS 400 MG/250 ML BAG IVPB STA (15:28)
[2017-06-10] MEDS ORDERED: Sod Polystyrene Sulf 15 gm/60 ml Susp ONE (15:37)
--- NOTE | 2017-06-10 18:49 | CP.PCM.HP ---
History of Present Illness - History of Present Illness History of Present Illness: 46 yo gentlewoman with complex history was sent to ER from [facility] for headache, fever to 102 deg, cough, congestion x3 days. No sputum production. No chest pain or dyspnea. She was taking Robitussin-DM and Tylenol without relief. Past Hx: ESRD - ON Hemodialysis tiw. DM-II controlled on Prandin and Tradjenta Coagulopathy - thrombophilis with Protein C & S deficiency and heparin antibodies - currently maintained o Eliquis and ASA Peripheral Arterial dis. s/p multiple clotted A-V fistulae and loss of multiple fingers due to osteomyelitis. Osteomyelitis R tib/fib with R BK amputation in September 2016. She had prolonged course due to infection with Klebsiella pneumonia. Just completed wound vac and IV Avycaz. Continues on Vanco and Gent per hemodialysis tiw. S/P L BK amputation due to de-clotting mishap. She was found to have influenza. Because of being on HD and because symptoms have been present >48hrs will not give Tamiflu. Will give Avelox 400mg po daily x 7 days. Patient has K+ of 5.9 and was due for HD today. This cannot be done at [facility] so will admit the patient for HD [facility] and then if stable will discharge back to [facility] tomorrow. Dr. Alta Guadarrama is aware and will arrange for the hemodialysis. MEDICATIONS: SEE LIST OF "HOME MEDS" IN COMPUTER. THESES ARE TO BE CONTINUED. Present on Admission - Present on Admission Any Indicators Present on Admission: Yes - Notes: Notes:: H/O Osteomyelitis see HPI Review of Systems - Review of Systems All systems: reviewed and no additional remarkable complaints except (as noted in HPI) Past Patient History - Tetanus Immunizations Tetanus Immunization: Up to Date - Past Medical History & Family History Past Medical History?: Yes - Past Social History Smoking Status: Never Smoked - CARDIAC Hx Hypercholesterolemia: Yes Hx Hypertension: Yes - PULMONARY Hx Pneumonia: Yes - NEUROLOGICAL Hx Seizures: Yes (see hpi) - HEENT Hx HEENT Problems: Yes Hx Cataracts: Yes Other/Comment: Diabetic retinopathy severe - LASER treatments January 2017 - Dr. Hernandez - RENAL Hx Chronic Kidney Disease: Yes Hx Kidney Stones: No - ENDOCRINE/METABOLIC Hx Endocrine Disorders: Yes Hx Diabetes Mellitus Type 1: Yes (type I) Hx Diabetes Mellitus Type 2: Yes - HEMATOLOGICAL/ONCOLOGICAL Hx Anemia: Yes Hx Human Immunodeficiency Virus (HIV): No - INTEGUMENTARY Hx Dermatological Problems: No - MUSCULOSKELETAL/RHEUMATOLOGICAL Hx Musculoskeletal Disorders: Yes (Charcot joint right ankle) Hx Back Pain: Yes Hx Falls: No Hx Osteomyelitis: Yes (Multiple sites see hpi) Other/Comment: s/p BKA - GASTROINTESTINAL Hx Gastrointestinal Disorders: Yes Other/Comment: hx of anal fissure - GENITOURINARY/GYNECOLOGICAL Hx Genitourinary Disorders: Yes Other/Comment: Menorrhagia - PSYCHIATRIC Hx Psychophysiologic Disorder: No Hx Substance Use: No Other/Comment: WITH NUMBNESS AND TINGLING SENSATION - SURGICAL HISTORY Hx Surgeries: Yes Hx Amputation: Yes Hx Arteriovenous Shunt: Yes Hx Musculoskeletal Surgery: Yes (bilateral bka) Hx Vascular Access Device: Yes (R subclavian Permacath) Other/Comment: INSERTION OF DIALYSIS CATH;CATARACT-BOTH EYES;LEFT BELOW KNEE AMPUTATION, RIGHT BK AMPUTATION, MULTIPLE FINGER AMPUTATIONS - ANESTHESIA Hx Anesthesia: Yes Hx Anesthesia Reactions: No Hx Malignant Hyperthermia: No Meds Allergies/Adverse Reactions: Allergies Allergy/AdvReac Type Severity Reaction Status Date / Time heparin AdvReac Severe ANAPHYLAXIS Verified 02/09/17 17:46 NSAIDS (Non-Steroidal AdvReac Severe ANAPHYLAXIS Verified 03/24/17 08:37 Anti-Inflamma Beta-Blockers AdvReac Mild none of Verified 12/29/16 10:25 (Beta-Adrenergic Bloc the listed reactions tramadol [From Ultram] AdvReac Unknown potential Verified 09/18/16 10:41 vasoconstriction Physical Exam - Constitutional Additional comments: Moderate distress. Alert & oriented. - Head Exam Head Exam: NORMAL INSPECTION - Eye Exam Eye Exam: Normal appearance - ENT Exam ENT Exam: Mucous Membranes Moist - Neck Exam Neck exam: Positive for: Normal Inspection Additional comments: R subclavian Permacath intact. - Respiratory Exam Respiratory Exam: NORMAL BREATHING PATTERN Additional comments: Coarse breath sounds. Increased secretions in large airways. - Cardiovascular Exam Cardiovascular Exam: REGULAR RHYTHM, +S1, +S2 - GI/Abdominal Exam GI & Abdominal Exam: Soft - Extremities Exam Additional comments: Bilateral BK amputee. Multiple finger amputee on L and 3rd finger amputee on R. Weak radial pulses bilaterally. - Back Exam Back exam: NORMAL INSPECTION - Neurological Exam Neurological exam: Alert, CN II-XII Intact, Oriented x3 Additional comments: Bilateral BK amputee - Psychiatric Exam Psychiatric exam: Anxious, Normal Affect, Normal Mood - Skin Skin Exam: Normal Color Additional comments: Persistent abrasion R patella. Results - Vital Signs Recent Vital Signs: Last Vital Signs Temp 99.2 F 06/10/17 16:20 Pulse 103 H 06/10/17 16:20 Resp 18 06/10/17 16:20 BP 122/65 06/10/17 16:20 Pulse Ox 100 06/10/17 16:20 - Labs Result Diagrams: 06/10/17 13:30 06/10/17 13:30 Labs: Laboratory Results - last 24 hr 06/10/17 06/10/17 06/10/17 13:01 13:27 13:30 WBC 9.3 RBC 3.31 L Hgb 10.4 L Hct 31.7 L MCV 95.7 MCH 31.4 H MCHC 32.8 L RDW 17.5 H Plt Count 128 L MPV 10.0 Neut % (Auto) 70.7 Lymph % (Auto) 13.2 L [place] % (Auto) 14.0 H Eos % (Auto) 1.4 Baso % (Auto) 0.7 Neut # 6.6 Lymph # 1.2 [place] # 1.3 H Eos # 0.1 Baso # 0.1 PT INR APTT pO2 29 L VBG pH 7.32 VBG pCO2 50 VBG HCO3 23.0 VBG Total CO2 27.3 VBG O2 Sat (Calc) 54.6 VBG Base Excess -0.9 L VBG Potassium 5.9 H Sodium 134.0 Chloride 96.0 L Glucose 103 Lactate 1.4 FiO2 21.0 Potassium Carbon Dioxide Anion Gap BUN Creatinine Est GFR ( Amer) Est GFR (Non-Af Amer) POC Glucose (mg/dL) 108 Random Glucose Calcium Magnesium Total Bilirubin AST ALT Alkaline Phosphatase Total Protein Albumin Globulin Albumin/Globulin Ratio Venous Blood Potassium 5.9 H Influenza Typ A,B (EIA) 06/10/17 06/10/17 06/10/17 13:30 13:30 13:30 WBC RBC Hgb Hct MCV MCH MCHC RDW Plt Count MPV Neut % (Auto) Lymph % (Auto) [place] % (Auto) Eos % (Auto) Baso % (Auto) Neut # Lymph # [place] # Eos # Baso # PT 17.0 H INR 1.5 H APTT 38.9 H pO2 VBG pH VBG pCO2 VBG HCO3 VBG Total CO2 VBG O2 Sat (Calc) VBG Base Excess VBG Potassium Sodium 139 Chloride 96 L Glucose Lactate FiO2 Potassium 5.9 H Carbon Dioxide 23 Anion Gap 26 H BUN 102 H* D Creatinine 10.9 H* Est GFR ( Amer) 5 Est GFR (Non-Af Amer) 4 POC Glucose (mg/dL) Random Glucose 105 Calcium 8.9 Magnesium 2.7 H Total Bilirubin 0.6 AST 30 ALT 34 Alkaline Phosphatase 181 H Total Protein 8.5 H Albumin 4.4 Globulin 4.2 H Albumin/Globulin Ratio 1.1 Venous Blood Potassium Influenza Typ A,B (EIA) Pos for influenza a H - Imaging and Cardiology Chest x-ray Status: Report reviewed by me (No colsolidation. Mild pulmonary vascular congestion.) Assessment & Plan (1) Influenza A Assessment and Plan: Possible bacterial superinfection. Will add Avelox 400mg daily po. Status: Acute (2) Diabetes mellitus Assessment and Plan: Continue usual medication. Status: Acute (3) ESRD (end stage renal disease) on dialysis Assessment and Plan: Management per Dr. Alta Guadarrama Status: Acute (4) Osteomyelitis Assessment and Plan: Continue vancomycin and gentamicin per HD Status: Acute (5) Coagulopathy Assessment and Plan: Continue Eliquis and ASA. Do not give Heparin. Status: Acute - Assessment and Plan (Free Text) Assessment: Patient is to be admitted under "observation status" to have hemodialysis tonight. Depending on how she is doing in the morning, I will decide if she may go back to [facility] or if she needs admission to a regular floor for ongoing treatment. Care discussed with Dr. Lemon. - Date & Time Date: 06/10/17 Time: 19:36
--- NOTE | 2017-06-10 19:02 | CP.PCM.CON ---
History of Present Illness - History of Present Illness History of Present Illness: Patient is a 46 years of age known to me with end stage renal disease on maintenance hemodialysis TTS, Patient has very complicated past medical history related to numerous of admission and one admission she was in the hospital for several months related to old multiple surgery on the hand and legs amputations among other things and multiple sepsis. Patient has been dialyzed at [facility], And she is admitted because of fever 102 and I understand she has influenza test was positive and admitted for further evaluation and was noted to have potassium was elevated 5.9 and she was given treatment immediately in the emergency room for hyperkalemia. And patient is scheduled to have dialysis as well. Past medical history ESRD - ON Hemodialysis tiw. DM-II controlled on Prandin and Tradjenta Coagulopathy - thrombophilis with Protein C & S deficiency and heparin antibodies - currently maintained o Eliquis and ASA Peripheral Arterial dis. s/p multiple clotted A-V fistulae and loss of multiple fingers due to osteomyelitis. Osteomyelitis R tib/fib with R BK amputation in September 2016. She had prolonged course due to infection with Klebsiella pneumonia. Just completed wound vac and IV Avycaz. Continues on Vanco and Gent per hemodialysis tiw. Review of Systems - Constitutional Constitutional: Anorexia, Fever, Lethargy - Respiratory Respiratory: Dyspnea. absent: Hemoptysis - Reproductive: Female Reproductive:Female: As Per HPI - Musculoskeletal Musculoskeletal: As Per HPI - Psychiatric Psychiatric: As Per HPI - Hematologic/Lymphatic Hematologic: absent: Easy Bleeding Past Patient History - Tetanus Immunizations Tetanus Immunization: Up to Date - Past Medical History & Family History Past Medical History?: Yes - Past Social History Smoking Status: Never Smoked - CARDIAC Hx Hypercholesterolemia: Yes Hx Hypertension: Yes - PULMONARY Hx Pneumonia: Yes - NEUROLOGICAL Hx Seizures: Yes (see hpi) - HEENT Hx HEENT Problems: Yes Hx Cataracts: Yes Other/Comment: Diabetic retinopathy severe - LASER treatments January 2017 - Dr. Hernandez - RENAL Hx Chronic Kidney Disease: Yes Hx Kidney Stones: No - ENDOCRINE/METABOLIC Hx Endocrine Disorders: Yes Hx Diabetes Mellitus Type 1: Yes (type I) Hx Diabetes Mellitus Type 2: Yes - HEMATOLOGICAL/ONCOLOGICAL Hx Anemia: Yes Hx Human Immunodeficiency Virus (HIV): No - INTEGUMENTARY Hx Dermatological Problems: No - MUSCULOSKELETAL/RHEUMATOLOGICAL Hx Musculoskeletal Disorders: Yes (Charcot joint right ankle) Hx Back Pain: Yes Hx Falls: No Hx Osteomyelitis: Yes (Multiple sites see hpi) Other/Comment: s/p BKA - GASTROINTESTINAL Hx Gastrointestinal Disorders: Yes Other/Comment: hx of anal fissure - GENITOURINARY/GYNECOLOGICAL Hx Genitourinary Disorders: Yes Other/Comment: Menorrhagia - PSYCHIATRIC Hx Psychophysiologic Disorder: No Hx Substance Use: No Other/Comment: WITH NUMBNESS AND TINGLING SENSATION - SURGICAL HISTORY Hx Surgeries: Yes Hx Amputation: Yes Hx Arteriovenous Shunt: Yes Hx Musculoskeletal Surgery: Yes (bilateral bka) Hx Vascular Access Device: Yes (R subclavian Permacath) Other/Comment: INSERTION OF DIALYSIS CATH;CATARACT-BOTH EYES;LEFT BELOW KNEE AMPUTATION, RIGHT BK AMPUTATION, MULTIPLE FINGER AMPUTATIONS - ANESTHESIA Hx Anesthesia: Yes Hx Anesthesia Reactions: No Hx Malignant Hyperthermia: No Meds Allergies/Adverse Reactions: Allergies Allergy/AdvReac Type Severity Reaction Status Date / Time heparin AdvReac Severe ANAPHYLAXIS Verified 02/09/17 17:46 NSAIDS (Non-Steroidal AdvReac Severe ANAPHYLAXIS Verified 03/24/17 08:37 Anti-Inflamma Beta-Blockers AdvReac Mild none of Verified 12/29/16 10:25 (Beta-Adrenergic Bloc the listed reactions tramadol [From Ultram] AdvReac Unknown potential Verified 09/18/16 10:41 vasoconstriction - Medications Medications: Current Medications Calcium Gluconate 4.65 meq/ (Sodium Chloride) 110 mls @ 4.888 mls/hr IVPB ONCE ONE Stop: 06/11/17 13:15 Last Admin: 06/10/17 15:30 Dose: 4.888 mls/hr Moxifloxacin HCl (Avelox) 400 mg PO DAILY JASPER Last Admin: 06/10/17 16:30 Dose: 400 mg Physical Exam - Constitutional Appears: No Acute Distress - ENT Exam ENT Exam: Mucous Membranes Moist - Respiratory Exam Respiratory Exam: NORMAL BREATHING PATTERN - Cardiovascular Exam Cardiovascular Exam: absent: JVD, Rubs - GI/Abdominal Exam GI & Abdominal Exam: Normal Bowel Sounds. absent: Distended - Extremities Exam Extremities exam: Negative for: calf tenderness - Back Exam Back exam: absent: CVA tenderness (L), CVA tenderness (R) - Neurological Exam Neurological exam: Altered Results - Vital Signs Recent Vital Signs: Last Vital Signs Temp 99.2 F 06/10/17 16:20 Pulse 103 H 06/10/17 16:20 Resp 18 06/10/17 16:20 BP 122/65 06/10/17 16:20 Pulse Ox 100 06/10/17 16:20 - Labs Result Diagrams: 06/11/17 07:50 06/11/17 07:50 Labs: Laboratory Results - last 24 hr 06/10/17 06/10/17 06/10/17 13:01 13:27 13:30 WBC 9.3 RBC 3.31 L Hgb 10.4 L Hct 31.7 L MCV 95.7 MCH 31.4 H MCHC 32.8 L RDW 17.5 H Plt Count 128 L MPV 10.0 Neut % (Auto) 70.7 Lymph % (Auto) 13.2 L [place] % (Auto) 14.0 H Eos % (Auto) 1.4 Baso % (Auto) 0.7 Neut # 6.6 Lymph # 1.2 [place] # 1.3 H Eos # 0.1 Baso # 0.1 PT INR APTT pO2 29 L VBG pH 7.32 VBG pCO2 50 VBG HCO3 23.0 VBG Total CO2 27.3 VBG O2 Sat (Calc) 54.6 VBG Base Excess -0.9 L VBG Potassium 5.9 H Sodium 134.0 Chloride 96.0 L Glucose 103 Lactate 1.4 FiO2 21.0 Potassium Carbon Dioxide Anion Gap BUN Creatinine Est GFR ( Amer) Est GFR (Non-Af Amer) POC Glucose (mg/dL) 108 Random Glucose Calcium Magnesium Total Bilirubin AST ALT Alkaline Phosphatase Total Protein Albumin Globulin Albumin/Globulin Ratio Venous Blood Potassium 5.9 H Influenza Typ A,B (EIA) 06/10/17 06/10/17 06/10/17 13:30 13:30 13:30 WBC RBC Hgb Hct MCV MCH MCHC RDW Plt Count MPV Neut % (Auto) Lymph % (Auto) [place] % (Auto) Eos % (Auto) Baso % (Auto) Neut # Lymph # [place] # Eos # Baso # PT 17.0 H INR 1.5 H APTT 38.9 H pO2 VBG pH VBG pCO2 VBG HCO3 VBG Total CO2 VBG O2 Sat (Calc) VBG Base Excess VBG Potassium Sodium 139 Chloride 96 L Glucose Lactate FiO2 Potassium 5.9 H Carbon Dioxide 23 Anion Gap 26 H BUN 102 H* D Creatinine 10.9 H* Est GFR ( Amer) 5 Est GFR (Non-Af Amer) 4 POC Glucose (mg/dL) Random Glucose 105 Calcium 8.9 Magnesium 2.7 H Total Bilirubin 0.6 AST 30 ALT 34 Alkaline Phosphatase 181 H Total Protein 8.5 H Albumin 4.4 Globulin 4.2 H Albumin/Globulin Ratio 1.1 Venous Blood Potassium Influenza Typ A,B (EIA) Pos for influenza a H Assessment & Plan (1) Coagulopathy Status: Acute (2) Diabetes mellitus Status: Acute (3) ESRD (end stage renal disease) on dialysis Assessment and Plan: Patient with end stage renal disease on maintenance hemodialysis TTS she was admitted with fever 102 rule out sepsisinfluenza positive. Patient also hypokalemic potassium 5.9 and was given some medication in the ER. And hemodialysis called and arranged to be done as soon as she goes to the floor. Patient has history of osteomyelitis she has been treated for many months and multitude of antibiotics for long period of time. Patient also a diabetic in addition to multitude of surgery related to amputation below knees bilateral. Status: Acute (4) Influenza A Status: Acute (5) Osteomyelitis Status: Acute
[2017-06-10] MEDS ORDERED: Simethicone 80 mg Chewtab PO PRN (19:44)
[2017-06-10] MEDS ORDERED: guaiFENesin DM 200 mg-20 mg/10 ml UD PO PRN (19:44)
[2017-06-10] MEDS ORDERED: Vancomycin 250 MG in Sodium Chloride 0.9% 100 ML IVPB SCH (20:00)
[2017-06-10] MEDS ORDERED: Gentamicin 40 MG in Sodium Chloride 0.9% 50 ML IVPB SCH (20:00)
[2017-06-10] MEDS ORDERED: POLYETHYLENE GLYCOL 3350 17 GM/Dose PACKET PO SCH (22:00)
--- NOTE | 2017-06-11 04:55 | PCM.RRT ---
<Bucky Peña - Last Filed: 06/11/17 05:17> I.Reason for FUR BLOWING MACHINE OPERATOR - A) Acute Change in Patient: (Select all that apply): Acute change in mental status - Neurological Status (Select all that apply): Lethargic - Respiratory Oxygen Delivery Method: Non Rebreather @% - Constitutional Appears: Chronically Ill - Respiratory Exam Respiratory Exam: Rales. absent: Wheezes - Cardiovascular Exam Cardiovascular Exam: +S1, +S2 - GI/Abdominal Exam GI & Abdominal Exam: Soft, Normal Bowel Sounds - Neurological Exam Additional exam: Lethargic - Extremities Exam Additional comments: B/L LE amputation status as well as multiple digits UE B/L Plan - Assessment of Findings&Treatment Plan 46 y/o F with PMHx of DM, ESRD and coagulopathy admitted to hosp for Influenza is called FUR BLOWING MACHINE OPERATOR because of AMS after finishing Dialysis. When we arrived to evaluate patient she was lethargic and initial VS were as follows: HR 50 BP 97/54 Pulses were present While being assessed patient mental status slowly improved and she opened her eyes and was able respond to verbal commands but was still somnolent. Accucheck = 017 Repeated VS as follows: HR 120 BP 112/88 O2sat 100% on NRM A & P AMS on patient with multiple co-morbidities and Influenza CBC, CMP, Mg, Phosp stat Monitor <Katerina Groves - Last Filed: 06/11/17 06:22> FUR BLOWING MACHINE OPERATOR Nurse Assessment - Vital Signs Vital Signs: Rapid Response Vital Sign Blood Pressure 98/44 Pulse Rate 123 Respiratory Rate 18 - Vital Signs at end of FUR BLOWING MACHINE OPERATOR Vital Signs at end of FUR BLOWING MACHINE OPERATOR: Rapid Response End Vital Sign Blood Pressure 112/88 Pulse Rate 123 Respiratory Rate 30 O2 Sat by Pulse Oximetry 100 Attending/Attestation - Attestation I have personally seen and examined this patient.: Yes I have fully participated in the care of the patient.: Yes I have reviewed all pertinent clinical information, including history, physical exam and plan: Yes Notes (Text): 06/11/17 06:22 seen examined discussed with resident Dr. Bucky Peña, agree with findings and plan as above.
[2017-06-11 05:35] VITALS: O2SAT 100
[2017-06-11 06:07] LABS: BASO # 0.1 K/uL (0.0-0.2); BASO % 0.4 % (0.0-2.0); HEMOGLOBIN 10.7 g/dL (12.0-16.0); LYMPH # 0.5 K/uL (1.0-4.3); LYMPH % 2.6 % (20.0-40.0); MEAN CORPUSCULAR HGB CONC 31.6 g/dL (33.0-37.0); MEAN PLATELET VOLUME 10.2 fl (7.2-11.7); MONO # 1.3 K/uL (0.0-0.8); NEUT # 19.2 K/uL (1.8-7.0); NRBC % 0.1 % (0.0-0.0); PLATELET COUNT 125 K/uL (130-400); RBC 3.46 Mil/uL (3.80-5.20); WHITE BLOOD COUNT 21.1 K/uL (4.8-10.8)
[2017-06-11 06:09] LABS: ALBUMIN 4.6 g/dL (3.5-5.0); MAGNESIUM 2.2 MG/DL (1.6-2.3)
[2017-06-11] MEDS ORDERED: Dextrose 50% SYRINGE Inj (50 ml) ONE (07:38)
[2017-06-11 08:00] LABS: BASO # 0.1 K/uL (0.0-0.2); BASO % 0.6 % (0.0-2.0); EOS % 0.2 % (0.0-4.0); HEMOGLOBIN 10.3 g/dL (12.0-16.0); LYMPH # 1.6 K/uL (1.0-4.3); MEAN CELL VOLUME 102.7 fl (81.0-99.0); MEAN CORPUSCULAR HGB CONC 30.2 g/dL (33.0-37.0); MEAN PLATELET VOLUME 10.1 fl (7.2-11.7); MONO # 0.7 K/uL (0.0-0.8); MONO % 3.1 % (0.0-10.0); NEUT # 19.8 K/uL (1.8-7.0); NEUT % 89.1 % (50.0-75.0); NRBC % 0.1 % (0.0-0.0); RBC 3.3 Mil/uL (3.80-5.20); RED CELL DISTRIBUTION WIDTH 18.5 % (11.5-14.5); WHITE BLOOD COUNT 22.3 K/uL (4.8-10.8)
[2017-06-11] MEDS ORDERED: EPINEPHrine 1 mg/ml (1:1000) Inj IV ONE ×2 (08:10→11:09)
[2017-06-11 08:19] LABS: ALBUMIN 3.8 g/dL (3.5-5.0); CALCIUM 9.5 mg/dL (8.4-10.2); MAGNESIUM 2.6 MG/DL (1.6-2.3)
[2017-06-11] MEDS ORDERED: SODIUM CHLORIDE IVPB ONE (08:30)
[2017-06-11] MEDS ORDERED: EPINEPHRINE IVPB ONE (08:30)
[2017-06-11 08:31] LABS: VENOUS BLOOD GAS BASE EXCESS -18.5 mmol/L (0.0-2.0); VENOUS BLOOD GAS PCO2 94 mmHg (40-60); VENOUS BLOOD GAS PO2 24 mm/Hg (30-55); VENOUS BLOOD PH 6.84 (7.32-7.43)
[2017-06-11 08:31] LABS: TROPONIN I 0.978 ng/mL (0.00-0.120)
[2017-06-11] MEDS ORDERED: Sodium Bicarbonate 7.5% (0.9 MEQ/ML) 50ML INJ IV ONE (08:38)
[2017-06-11] MEDS ORDERED: Multivitamin Vitamin B Complex (Nephro-Vite) Tab PO SCH (09:00)
[2017-06-11] MEDS ORDERED: Pantoprazole 40 mg EC Tab PO SCH (09:00)
[2017-06-11] MEDS ORDERED: Vitamins A & D Oint UD Foilpak TOP SCH (09:00)
[2017-06-11 09:29] VITALS: RESP 22
--- NOTE | 2017-06-11 10:03 | CP.PCM.PN ---
Subjective - Date & Time of Evaluation Date of Evaluation: 06/11/17 Time of Evaluation: 09:45 - Subjective Subjective: PATIENT IS IN ICU: Patient with DM, ESRD, hx of osteomyelitis R leg, was admitted yesterday with mild/moderate upper respiratory symptoms and confirmed dx of influenza. She received hemodialysis during the night (per her usual tiw schedule). At the start she had some fluid retention (per CXR) and a K+ of 5.9. Her vital signs were normal and she was oxygenating OK. Shortly after the conclusion of hemodialysis, the patient because less responsive, hypotensive and bradycardic. Then she went into V Tach and V. Fib. Code Blue was called, and she had to be resuscitated. She subsequented coded 3 more times. She is currently intubated, ventilated, unresponsive and her blood pressure is being maintained on levophed drip. Labs show high wbc 22,000 +, elevated lactate (>9), and acidosis. Blood cultures are pending. I spoke with patient's mother Sandra Leo [phone] and indicated that the chance for recovery is poor. She will inform her other daughter of these events. Objective - Vital Signs/Intake and Output Vital Signs (last 24 hours): Temp Pulse Resp BP Pulse Ox 98 F 103 H 22 120/55 L 100 06/11/17 07:32 06/11/17 09:00 06/11/17 09:00 06/11/17 09:00 06/11/17 08:30 - Medications Medications: Current Medications Acetaminophen (Tylenol 325mg Tab) 325 mg PO Q4 PRN PRN Reason: Fever >100.4 F Acetaminophen (Tylenol 325mg Tab) 650 mg PO Q4H PRN PRN Reason: Pain, Mild (1-3) Last Admin: 06/10/17 22:34 Dose: 650 mg Apixaban (Eliquis) 5 mg PO Q12 JASPER PRN Reason: Protocol Last Admin: 06/11/17 00:09 Dose: 5 mg Aspirin (Ecotrin) 81 mg PO DAILY [facility] Atorvastatin Calcium (Lipitor) 40 mg PO HS [facility] Last Admin: 06/11/17 00:11 Dose: 40 mg Benzonatate (Tessalon Perles) 200 mg PO TID [facility] Calcitriol (Rocaltrol) 0.25 mcg PO DAILY [facility] Calcium Carbonate (Oscal) 500 mg PO BID [facility] Docusate Sodium (Colace) 100 mg PO BID [facility] Ergocalciferol (Drisdol 50,000 Intl Units Cap) 1 cap PO WE [facility] Fluticasone Propionate (Flonase) 1 spr ALLAN Q12H PRN PRN Reason: Nasal congestion Gabapentin (Neurontin) 300 mg PO Q8 [facility] Last Admin: 06/11/17 03:12 Dose: Not Given Guaifenesin/Dextromethorphan (Robitussin Dm) 10 ml PO Q4H PRN PRN Reason: Cough Hydromorphone HCl (Dilaudid) 2 mg PO Q4 PRN PRN Reason: Pain, moderate (4-7) Last Admin: 06/11/17 00:14 Dose: 2 mg Hydromorphone HCl (Dilaudid) 2 mg PO DAILY PRN PRN Reason: Pain, moderate (4-7) Hydromorphone HCl (Dilaudid) 2 mg PO Q4H PRN PRN Reason: Pain, severe (8-10) Calcium Gluconate 4.65 meq/ (Sodium Chloride) 110 mls @ 4.888 mls/hr IVPB ONCE ONE Stop: 06/11/17 13:15 Last Admin: 06/10/17 15:30 Dose: 4.888 mls/hr Gentamicin Sulfate 40 mg/ (Sodium Chloride) 51 mls @ 50.495 mls/hr IVPB TTS JASPER PRN Reason: Protocol Last Admin: 06/11/17 06:15 Dose: 50.495 mls/hr Vancomycin HCl 250 mg/ Sodium (Chloride) 100 mls @ 100 mls/hr IVPB TTS JASPER PRN Reason: Protocol Last Admin: 06/11/17 06:15 Dose: 100 mls/hr Phenylephrine HCl 10 mg/ (Sodium Chloride) 251 mls @ 30.12 mls/hr IV .Q8H20M JASPER; 20 MCG/MIN PRN Reason: Protocol Epinephrine HCl 1 mg/ Sodium (Chloride) 251 mls @ 15.06 mls/hr IVPB .[id number] ONE; 1 MCG/MIN PRN Reason: Protocol Stop: 06/12/17 01:09 Lamotrigine (Lamictal) 150 mg PO Q12 [facility] Last Admin: 06/11/17 00:10 Dose: 150 mg Loratadine (Claritin) 10 mg PO DAILY [facility] Metoprolol Tartrate (Lopressor) 25 mg PO Q12 [facility] Last Admin: 06/11/17 00:14 Dose: 25 mg Moxifloxacin HCl (Avelox) 400 mg PO DAILY [facility] Last Admin: 06/10/17 16:30 Dose: 400 mg Ondansetron HCl (Zofran Tab) 4 mg PO Q4H PRN PRN Reason: Nausea/Vomiting Pantoprazole Sodium (Protonix Ec Tab) 40 mg PO DAILY [facility] Polyethylene Glycol (Miralax) 17 gm PO HS [facility] Last Admin: 06/11/17 00:11 Dose: 17 gm Repaglinide (Prandin) 2 mg PO ACTID [facility] Sennosides (Senokot Tab) 8.6 mg PO DAILY PRN PRN Reason: Constipation Sevelamer HCl (Renagel) 1,600 mg PO TID [facility] Silver Sulfadiazine (Silvadene 1% 20 Gm) 1 ea TOP QPM [facility] Simethicone (Mylicon Chew Tab) 80 mg PO TID PRN PRN Reason: Flatulence Sitagliptin Phosphate (Januvia) 25 mg PO DIN [facility] Vitamin A (Vitamin A & D Oint Ud Foilpak) 1 ea TOP DAILY [facility] Vitamin B Complex/Vit C/Folic Acid (Nephro-Ajay) 1 tab PO DAILY [facility] - Labs Labs: 06/11/17 07:50 06/11/17 07:50 PT 17.0 Seconds (9.8-13.1) H 06/10/17 13:30 INR 1.5 (0.9-1.2) H 06/10/17 13:30 APTT 38.9 Seconds (25.6-37.1) H 06/10/17 13:30 Laboratory Results - last 72 hr 06/10/17 06/10/17 06/10/17 13:01 13:27 13:30 WBC 9.3 RBC 3.31 L Hgb 10.4 L Hct 31.7 L MCV 95.7 MCH 31.4 H MCHC 32.8 L RDW 17.5 H Plt Count 128 L MPV 10.0 Neut % (Auto) 70.7 Lymph % (Auto) 13.2 L [place] % (Auto) 14.0 H Eos % (Auto) 1.4 Baso % (Auto) 0.7 Neut # 6.6 Lymph # 1.2 [place] # 1.3 H Eos # 0.1 Baso # 0.1 Neut # (Auto) Lymph # (Auto) [place] # (Auto) Eos # (Auto) Baso # (Auto) PT INR APTT pO2 29 L VBG pH 7.32 VBG pCO2 50 VBG HCO3 23.0 VBG Total CO2 27.3 VBG O2 Sat (Calc) 54.6 VBG Base Excess -0.9 L VBG Potassium 5.9 H Sodium 134.0 Chloride 96.0 L Glucose 103 Lactate 1.4 FiO2 21.0 PEEP Blood Gas Comments Crit Value Called To Crit Value Called By Crit Value Read Back Blood Gas Notified Time Potassium Carbon Dioxide Anion Gap BUN Creatinine Est GFR ( Amer) Est GFR (Non-Af Amer) POC Glucose (mg/dL) 108 Random Glucose Lactic Acid Calcium Magnesium Phosphorus Total Bilirubin AST ALT Alkaline Phosphatase Total Protein Troponin I Albumin Globulin Albumin/Globulin Ratio Venous Blood Potassium 5.9 H Influenza Typ A,B (EIA) 06/10/17 06/10/17 06/10/17 13:30 13:30 13:30 WBC RBC Hgb Hct MCV MCH MCHC RDW Plt Count MPV Neut % (Auto) Lymph % (Auto) [place] % (Auto) Eos % (Auto) Baso % (Auto) Neut # Lymph # [place] # Eos # Baso # Neut # (Auto) Lymph # (Auto) [place] # (Auto) Eos # (Auto) Baso # (Auto) PT 17.0 H INR 1.5 H APTT 38.9 H pO2 VBG pH VBG pCO2 VBG HCO3 VBG Total CO2 VBG O2 Sat (Calc) VBG Base Excess VBG Potassium Sodium 139 Chloride 96 L Glucose Lactate FiO2 PEEP Blood Gas Comments Crit Value Called To Crit Value Called By Crit Value Read Back Blood Gas Notified Time Potassium 5.9 H Carbon Dioxide 23 Anion Gap 26 H BUN 102 H* D Creatinine 10.9 H* Est GFR ( Amer) 5 Est GFR (Non-Af Amer) 4 POC Glucose (mg/dL) Random Glucose 105 Lactic Acid Calcium 8.9 Magnesium 2.7 H Phosphorus Total Bilirubin 0.6 AST 30 ALT 34 Alkaline Phosphatase 181 H Total Protein 8.5 H Troponin I Albumin 4.4 Globulin 4.2 H Albumin/Globulin Ratio 1.1 Venous Blood Potassium Influenza Typ A,B (EIA) Pos for influenza a H 06/11/17 06/11/17 06/11/17 04:52 05:30 05:30 WBC 21.1 H D RBC 3.46 L Hgb 10.7 L Hct 33.9 L MCV 98.0 D MCH 31.0 MCHC 31.6 L RDW 17.0 H Plt Count 125 L MPV 10.2 Neut % (Auto) 91.0 H Lymph % (Auto) 2.6 L [place] % (Auto) 6.0 Eos % (Auto) 0.0 Baso % (Auto) 0.4 Neut # Lymph # [place] # Eos # Baso # Neut # (Auto) 19.2 H Lymph # (Auto) 0.5 L [place] # (Auto) 1.3 H Eos # (Auto) 0.0 Baso # (Auto) 0.1 PT INR APTT pO2 VBG pH VBG pCO2 VBG HCO3 VBG Total CO2 VBG O2 Sat (Calc) VBG Base Excess VBG Potassium Sodium 139 Chloride 95 L Glucose Lactate FiO2 PEEP Blood Gas Comments Crit Value Called To Crit Value Called By Crit Value Read Back Blood Gas Notified Time Potassium 4.2 Carbon Dioxide 25 Anion Gap 23 H BUN 45 H Creatinine 6.4 H Est GFR ( Amer) 9 Est GFR (Non-Af Amer) 7 POC Glucose (mg/dL) 107 Random Glucose 129 H Lactic Acid Calcium 9.0 Magnesium 2.2 Phosphorus 4.6 H Total Bilirubin 0.8 AST 42 H D ALT 25 Alkaline Phosphatase 207 H Total Protein 9.0 H Troponin I Albumin 4.6 Globulin 4.5 H Albumin/Globulin Ratio 1.0 Venous Blood Potassium Influenza Typ A,B (EIA) 06/11/17 06/11/17 06/11/17 07:50 07:50 08:27 WBC 22.3 H RBC 3.30 L Hgb 10.3 L Hct 34.0 MCV 102.7 H D MCH 31.0 MCHC 30.2 L RDW 18.5 H Plt Count 142 MPV 10.1 Neut % (Auto) 89.1 H Lymph % (Auto) 7.0 L [place] % (Auto) 3.1 Eos % (Auto) 0.2 Baso % (Auto) 0.6 Neut # Lymph # [place] # Eos # Baso # Neut # (Auto) 19.8 H Lymph # (Auto) 1.6 [place] # (Auto) 0.7 Eos # (Auto) 0.0 Baso # (Auto) 0.1 PT INR APTT pO2 24 L VBG pH 6.84 L* VBG pCO2 94 H* VBG HCO3 8.9 VBG Total CO2 18.9 L VBG O2 Sat (Calc) 22.1 L VBG Base Excess -18.5 L VBG Potassium 4.9 Sodium 138 140.0 Chloride 96 L 95.0 L Glucose 104 Lactate 13.9 H* FiO2 100.0 PEEP 5 Blood Gas Comments Prvc/ac14/vt500/100%/+5peep Crit Value Called To Dr. jovani bojorquez m.d. Crit Value Called By Sandra Crit Value Read Back Y Blood Gas Notified Time 831 Potassium 4.5 Carbon Dioxide 18 L Anion Gap 29 H BUN 44 H Creatinine 6.9 H Est GFR ( Amer) 8 Est GFR (Non-Af Amer) 6 POC Glucose (mg/dL) Random Glucose 159 H Lactic Acid Calcium 9.5 Magnesium 2.6 H Phosphorus 8.8 H Total Bilirubin 0.7 AST 473 H D ALT 389 H D Alkaline Phosphatase 155 H D Total Protein 7.7 Troponin I 0.9780 H* Albumin 3.8 Globulin 3.9 Albumin/Globulin Ratio 1.0 Venous Blood Potassium 4.9 Influenza Typ A,B (EIA) 06/11/17 09:26 WBC RBC Hgb Hct MCV MCH MCHC RDW Plt Count MPV Neut % (Auto) Lymph % (Auto) [place] % (Auto) Eos % (Auto) Baso % (Auto) Neut # Lymph # [place] # Eos # Baso # Neut # (Auto) Lymph # (Auto) [place] # (Auto) Eos # (Auto) Baso # (Auto) PT INR APTT pO2 VBG pH VBG pCO2 VBG HCO3 VBG Total CO2 VBG O2 Sat (Calc) VBG Base Excess VBG Potassium Sodium Chloride Glucose Lactate FiO2 PEEP Blood Gas Comments Crit Value Called To Crit Value Called By Crit Value Read Back Blood Gas Notified Time Potassium Carbon Dioxide Anion Gap BUN Creatinine Est GFR ( Amer) Est GFR (Non-Af Amer) POC Glucose (mg/dL) Random Glucose Lactic Acid 9.9 H* Calcium Magnesium Phosphorus Total Bilirubin AST ALT Alkaline Phosphatase Total Protein Troponin I Albumin Globulin Albumin/Globulin Ratio Venous Blood Potassium Influenza Typ A,B (EIA) - Constitutional Appears: Other (Intubated, on ventilator, unresponsive to voice or touch.) - Neck Exam Additional comments: Right subclavian Permacath. - Respiratory Exam Additional comments: Ventilator controlled, coarse breath sounds. - Cardiovascular Exam Cardiovascular Exam: REGULAR RHYTHM Additional comments: Hearts sounds barely audible. - GI/Abdominal Exam GI & Abdominal Exam: Soft - Extremities Exam Additional comments: As before. R femoral vein TLC. - Neurological Exam Additional comments: comatose - Skin Skin Exam: Dry, Intact, Normal Color, Warm Assessment and Plan (1) Cardiorespiratory arrest Assessment & Plan: Cause is not clear - patient at high risk for coronary artery disease, possible [place] Troponin was 0.9 (elevated) at 0400 hours but this may have been after a tachycardia. ??? - possible septic shock due to ? residual bacterial infection from osteomyelitis - difficult to believe that her influenza was so severe as to cause respiratory arrest Intensive care per Dr. Cameron Bojorquez - see his notes. Status: Acute (2) Influenza A Assessment & Plan: see above Status: Acute (3) Diabetes mellitus Assessment & Plan: controlled Status: Acute (4) ESRD (end stage renal disease) on dialysis Assessment & Plan: s/p hemodialysis Status: Acute (5) Osteomyelitis Assessment & Plan: Although RLE appears to be healed, there can be residual infection as the tibia and fibula were deeply infected. Status: Acute (6) Coagulopathy Assessment & Plan: If we cannot give Eliquis and aspirin, we may need to use argatroban for anticoagulation. Dr. 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 Status: Acute
[2017-06-11 11:12] LABS: BANDS 4 % (0-2); LYMPHOCYTE 7 % (20-50); METAMYELOCYTE 1 % (0-0); MONOCYTE 7 % (0-10); NEUTROPHIL 81 % (42-75); TOTAL CELLS COUNTED 100
[2017-06-11 11:13] LABS: ANISOCYTOSIS SLIGHT; PLATELET ESTIMATE SLIGHTLY DECREASED (NORMAL)
[2017-06-11 11:14] LABS: HYPOCHROMIC SLIGHT; OVALOCYTES SLIGHT; POLYCHROMIC SLIGHT; SCHISTOCYTES SLIGHT; TOXIC GRANULATION PRESENT
--- NOTE | 2017-06-11 11:14 | CP.PCM.PN ---
Subjective - Date & Time of Evaluation Date of Evaluation: 06/11/17 Time of Evaluation: 11:12 - Subjective Subjective: Patient and bed and respiratory intubated and not responsive at the present Patient completed hemodialysis last night. ALUM MIXER WAS CALLED AND noted. Objective - Vital Signs/Intake and Output Vital Signs (last 24 hours): Temp Pulse Resp BP Pulse Ox 98 F 112 H 22 34/22 L 100 06/11/17 07:32 06/11/17 10:00 06/11/17 10:00 06/11/17 10:00 06/11/17 08:30 - Medications Medications: Current Medications Acetaminophen (Tylenol 325mg Tab) 325 mg PO Q4 PRN PRN Reason: Fever >100.4 F Acetaminophen (Tylenol 325mg Tab) 650 mg PO Q4H PRN PRN Reason: Pain, Mild (1-3) Last Admin: 06/10/17 22:34 Dose: 650 mg Apixaban (Eliquis) 5 mg PO Q12 JASPER PRN Reason: Protocol Last Admin: 06/11/17 09:48 Dose: Not Given Aspirin (Ecotrin) 81 mg PO DAILY [facility] Last Admin: 06/11/17 09:48 Dose: Not Given Atorvastatin Calcium (Lipitor) 40 mg PO HS [facility] Last Admin: 06/11/17 00:11 Dose: 40 mg Benzonatate (Tessalon Perles) 200 mg PO TID [facility] Last Admin: 06/11/17 09:54 Dose: Not Given Calcitriol (Rocaltrol) 0.25 mcg PO DAILY [facility] Last Admin: 06/11/17 09:53 Dose: Not Given Calcium Carbonate (Oscal) 500 mg PO BID [facility] Last Admin: 06/11/17 09:51 Dose: Not Given Docusate Sodium (Colace) 100 mg PO BID [facility] Last Admin: 06/11/17 09:48 Dose: Not Given Ergocalciferol (Drisdol 50,000 Intl Units Cap) 1 cap PO [facility] Fluticasone Propionate (Flonase) 1 spr ALLAN Q12H PRN PRN Reason: Nasal congestion Gabapentin (Neurontin) 300 mg PO Q8 [facility] Last Admin: 06/11/17 09:51 Dose: Not Given Guaifenesin/Dextromethorphan (Robitussin Dm) 10 ml PO Q4H PRN PRN Reason: Cough Hydromorphone HCl (Dilaudid) 2 mg PO Q4 PRN PRN Reason: Pain, moderate (4-7) Last Admin: 06/11/17 00:14 Dose: 2 mg Hydromorphone HCl (Dilaudid) 2 mg PO DAILY PRN PRN Reason: Pain, moderate (4-7) Hydromorphone HCl (Dilaudid) 2 mg PO Q4H PRN PRN Reason: Pain, severe (8-10) Calcium Gluconate 4.65 meq/ (Sodium Chloride) 110 mls @ 4.888 mls/hr IVPB ONCE ONE Stop: 06/11/17 13:15 Last Admin: 06/10/17 15:30 Dose: 4.888 mls/hr Gentamicin Sulfate 40 mg/ (Sodium Chloride) 51 mls @ 50.495 mls/hr IVPB TTS JASPER PRN Reason: Protocol Last Admin: 06/11/17 06:15 Dose: 50.495 mls/hr Vancomycin HCl 250 mg/ Sodium (Chloride) 100 mls @ 100 mls/hr IVPB TTS JASPER PRN Reason: Protocol Last Admin: 06/11/17 06:15 Dose: 100 mls/hr Phenylephrine HCl 10 mg/ (Sodium Chloride) 251 mls @ 30.12 mls/hr IV .Q8H20M JASPER; 20 MCG/MIN PRN Reason: Protocol Last Admin: 06/11/17 09:51 Dose: 20 mcg/min, 30.12 mls/hr Epinephrine HCl 1 mg/ Sodium (Chloride) 251 mls @ 15.06 mls/hr IVPB .[id number] ONE; 1 MCG/MIN PRN Reason: Protocol Stop: 06/12/17 01:09 Last Admin: 06/11/17 08:30 Dose: 15.06 mls/hr Lamotrigine (Lamictal) 150 mg PO Q12 [facility] Last Admin: 06/11/17 09:50 Dose: Not Given Loratadine (Claritin) 10 mg PO DAILY [facility] Last Admin: 06/11/17 09:48 Dose: Not Given Metoprolol Tartrate (Lopressor) 25 mg PO Q12 [facility] Last Admin: 06/11/17 09:50 Dose: Not Given Moxifloxacin HCl (Avelox) 400 mg PO DAILY [facility] Last Admin: 06/11/17 11:06 Dose: Not Given Ondansetron HCl (Zofran Tab) 4 mg PO Q4H PRN PRN Reason: Nausea/Vomiting Pantoprazole Sodium (Protonix Ec Tab) 40 mg PO DAILY [facility] Last Admin: 06/11/17 09:53 Dose: Not Given Polyethylene Glycol (Miralax) 17 gm PO HS [facility] Last Admin: 06/11/17 00:11 Dose: 17 gm Repaglinide (Prandin) 2 mg PO ACTID [facility] Last Admin: 06/11/17 09:53 Dose: Not Given Sennosides (Senokot Tab) 8.6 mg PO DAILY PRN PRN Reason: Constipation Sevelamer HCl (Renagel) 1,600 mg PO TID [facility] Last Admin: 06/11/17 09:53 Dose: Not Given Silver Sulfadiazine (Silvadene 1% 20 Gm) 1 ea TOP QPM [facility] Simethicone (Mylicon Chew Tab) 80 mg PO TID PRN PRN Reason: Flatulence Sitagliptin Phosphate (Januvia) 25 mg PO DIN [facility] Vitamin A (Vitamin A & D Oint Ud Foilpak) 1 ea TOP DAILY [facility] Last Admin: 06/11/17 09:55 Dose: 1 ea Vitamin B Complex/Vit C/Folic Acid (Nephro-Ajay) 1 tab PO DAILY [facility] Last Admin: 06/11/17 09:51 Dose: Not Given - Labs Labs: 06/11/17 07:50 06/11/17 07:50 PT 17.0 Seconds (9.8-13.1) H 06/10/17 13:30 INR 1.5 (0.9-1.2) H 06/10/17 13:30 APTT 38.9 Seconds (25.6-37.1) H 06/10/17 13:30 - Constitutional Appears: No Acute Distress - ENT Exam ENT Exam: Mucous Membranes Moist - Neck Exam Neck Exam: absent: Lymphadenopathy - Cardiovascular Exam Cardiovascular Exam: absent: JVD, Rubs - GI/Abdominal Exam GI & Abdominal Exam: Soft. absent: Guarding - Extremities Exam Extremities Exam: absent: Calf Tenderness - Back Exam Back Exam: absent: CVA tenderness (L), CVA tenderness (R) - Neurological Exam Neurological Exam: Altered - Psychiatric Exam Psychiatric exam: Flat Affect - Skin Skin Exam: absent: Cyanosis Assessment and Plan (1) Coagulopathy Status: Acute (2) Diabetes mellitus Status: Acute (3) ESRD (end stage renal disease) on dialysis Assessment & Plan: End stage renal disease patient had dialysis last night and status post [facility]ER. Respiratory failure patient is intubated. Leukocytosis patient is receiving IV antibiotics R suggest to give extra dose of vancomycin and gentamicin . Prognosis appears to be poor Continue supportive therapy and respiratory therapy on antibiotic therapy with more antibiotics. Status: Acute (4) Influenza A Status: Acute (5) Osteomyelitis Status: Acute
[2017-06-11] MEDS ORDERED: Gentamicin 60mg/50ml NS 60 MG/50 ML BAG IVPB STA (11:17)
[2017-06-11] MEDS ORDERED: EPINEPHrine- 1 MG in Sodium Chloride 0.9% 250 ML IVPB ONE (11:28)
--- NOTE | 2017-06-11 12:17 | PCM.PROC ---
Procedures Attestation:: I certify that I have explained the specified Operation(s) or Procedure(s), risks, benefits and reasonable alternatives to the Patient and/or other person responsible. The opportunity was given to ask questions and all questions answered - Central Line Placement Right Femoral Triple Lumen Catheter Aseptic technique was employed throughout the procedure: Hand Hygiene done prior to procedure, Full body sterile drape, Chloraprep Antiseptic: 30 second prep for IJ or SC sites CVP Time Out Performed: Yes Pt. Placed on Pulse Ox Monitor: Yes Central Line Prep: Chlorhexidine-Alcohol Combination Ultrasound Used for Placement: No Central Line Lumen Inserted: triple Central Line Length: 20 cm Post Procedure: Sutured in Place, Good Blood Return, All Ports Aspirated, Flushed, Capped, Sterile Dressing Applied Secured by: Suture Post procedure dressing: Clear vapor permeable, Chlorhexidine disc (Biopatch) Post Procedure X-Ray: No Patient Tolerated Procedure: Well Immediate Complications: None
[2017-06-11 12:18] VITALS: TEMP 99.6
[2017-06-11 12:19] VITALS: BP 0/0; PULSE 105
--- NOTE | 2017-06-11 13:44 | CP.CCUPN ---
CCU Subjective - Physician Review Subjective (Free Text): Summary of Codes this AM after 7AM: First Code Uri called just after 7AM on Telemetry unit in Bed 411: Patient found unresponsive by Nurse with absent pulses. CPR and ACLS started immediately. Review of telemetry data shows preceding V Tach degrading to asystole. High quality chest compressions ensured and meds administered including multiple doses of Epinephrine, Atropine, Bicarbonate, Amiodarone, and initiation of drips with vasoactive meds: Levophed, Phenylephrine and Epinephrine. Rhythm reverted from asystole versus fine V fib appearing rhythm to a junctional bradycardia after defib x1 with 200J with more Epinephrine and Atropine, rhythm changed to a narrow QRS sinus tachycardia with palpable carotid and femoral pulses. Patient subsequently orally intubated by Anesthesiologist, later placed on MV support with AC 14, TV 500ml and 100% oxygen in ICU. All meds were administered via R subclavian Permacath until new central venous access obtained via R Femoral vein TLC. Multiple attempts unsuccessful at placing a femoral arterial line. Post-resuscitation, she remains comatose and not responsive to even deep pain stimuli, no vent triggering is noted. VBG revealed severe acidosis and additional bicarbonate IVP administered and MV rate increased to 22 for now. Mother arrived to the bedside at 1220PM, and discussed present clinical condition with her, niece and male cousin. During this time, patients HR declined again, became bradycardic into the 40s with Wide QRS rhythm manifest as idioventricular. Additional Atropine and epinephrine doses given without effect. As discussed with Dr. Thomas, and patients mother, given present moribund status, further resuscitative efforts including chest compressions and possible defibrillations, would induce more pain and suffering onto the patient. Mother requested to stop further resuscitative measures. Comfort care ensured, patient pronounced at 1243PM. Given within 24H of admission , [employer] notified. Body released by Envelope Addresser Marcell Pickett at 132PM. EDRS # [id number]
--- NOTE | 2017-06-11 13:45 | CP.PCM.PRO ---
Pronouncement of Note - Clinical Findings Physical Exam: No Response Verbal/Painful Stimuli, Absent Peripheral Pulses{ Carotid & Femoral}, Absent Heart & Breath Sounds, No Pupillary Light Reflex, No Corneal Reflex, Pupils Fixed & Dilated, Absence of Vital Signs - Pronouncement Time Time of Pronouncement of : 12:43 - Notifications Pronouncement Notifications: Family Notified, Atending Notified Professor Of Legal Studies Notified: Yes (Body released by [employer] Supervisor- Marcell Pickett at 132PM.) - Autopsy Autopsy Requested: No - [place] [id number]
[2017-06-11 17:12] LABS: HEPATITIS B SURFACE AG Negative (NEGATIVE)
[2017-06-11 17:17] LABS: HEPATITIS B CORE AB NEGATIVE (NEGATIVE)
[2017-06-11] MEDS ORDERED: Silver Sulfadiazine 1% Cream (20 gm) TOP SCH (18:00)
[2017-06-11] MEDS ORDERED: Ergocalciferol 50,000 Intl Units Cap PO SCH (19:44)
--- NOTE | 2017-06-12 09:41 | CARD ---
APPROVED REPORT EKG Measurement Heart [id number] <Conclusion> Accelerated Junctional rhythm Low voltage QRS Possible Anterolateral infarct, age undetermined Abnormal ECG
--- NOTE | 2017-06-12 09:56 | CARD ---
APPROVED REPORT EKG Measurement Heart [id number] <Conclusion> Sinus tachycardia Low voltage QRS Prolonged QT Abnormal ECG
--- NOTE | 2017-06-12 10:30 | PQF GENQUE ---
Dr. Thomas, Sepsis ruled in or Sepsis ruled out ? Patient has sepsis Please document suspected or confirmed causative organism if known Please document suspected or confirmed localized infection Please clarify if sepsis is related to a device Please clarify if sepsis was present on admission Sepsis was ruled out Please provide corresponding diagnosis for patient's clinical picture and associated treatment Patient had sepsis which is now resolved Other condition (please specify) Clinically unable to determine Unknown Temp.:101.3->100.4-.>99.2->100.5->101.4 Pulse:116->103->116->127->111->120->119 WBC:9.3->21.1->22.3 left shift blood cultures x 2: prelim no growth after 24 hours H and P: Assessment Plan : (1) Influenza A Assessment and Plan: Possible bacterial superinfection. Will add Avelox 400mg daily po. Status: Acute (2) Diabetes mellitus Assessment and Plan: Continue usual medication. Status : Acute (3) ESRD on dialysis Status: Acute (4) Osteomyelitis Assessment and Plan: Continue vancomycin and gentamicin per HD Status: Acute (5) Coagulopathy Assessment and Plan: Continue Eliquis and ASA. Do not give Heparin. Status: Acute 06/10 Renal consult: Assessment and Plan: Patient with end stage renal disease on maintenance hemodialysis TTS she was admitted with fever 102 rule out sepsisinfluenza positive 06/11 Attending note: She received hemodialysis during the night (per her usual tiw schedule). At the start she had some fluid retention (per CXR) and a K+ of 5.9. Her vital signs were normal and she was oxygenating OK. Shortly after the conclusion of hemodialysis, the patient because less responsive, hypotensiveand bradycardic. Then she went into V Tach and V. Fib. Code Blue was called, and she had to be resuscitated. She subsequented coded 3 more times. She is currently intubated, ventilated, unresponsive and her blood pressure is being maintained on levophed drip. This form is a permanent part of the medical record Clarification of your documentation is requested to better reflect the severity of illness and intensity of treatment of your patient. Indicators present [] Specify: [] [] Specify: [] [] Specify: [] [] Specify: [] Location in the medical record that reflects the above clinical findings: [] Treatment Provided: [] PHYSICIAN'S RESPONSE Based on your medical judgment of the clinical indicators outlined above please clarify the following: [] Practitioner response [] If unable to determine, please check the box, sign and date. Present On Admission (POA) Indicator: [] Present at the time of admission [] Not present at the time of admission [] Clinically Undetermined In responding to this query, please exercise your independent professional judgment. The fact that a question is asked does not imply that any particular answer is desired or expected. Thank you for your clarification on this documentation. If you have any questions please call. * Thank you, Sandra Reina RN ext. #[phone] MTDD
== END 2017-06-11 12:43 | DRG 208 ==
LOC: H.ER 11:51 → H.ERHOLD 15:53 → H.TEL 22:40 → H.ICU/CCU 06-11 07:41 → OBSVTOIN 06-11 12:16
PROVIDERS: ADMIT Internal Medicine; ATTEND Internal Medicine
PROC: 5A1D70Z Performance of Urinary Filtration, Intermittent, Less than 6 Hours Per Day (ICD-10-PCS; 2017-06-10)
PROC: 06HM33Z Insertion of Infusion Device into Right Femoral Vein, Percutaneous Approach (ICD-10-PCS; principal; 2017-06-11)
PROC: 5A1935Z Respiratory Ventilation, Less than 24 Consecutive Hours (ICD-10-PCS; 2017-06-11)
PROC: 5A12012 Performance of Cardiac Output, Single, Manual (ICD-10-PCS; 2017-06-11)
PROC: 0BH17EZ Insertion of Endotracheal Airway into Trachea, Via Natural or Artificial Opening (ICD-10-PCS; 2017-06-11)
DX: J10.1 Influenza due to other identified influenza virus with other respiratory manifestations (principal); N18.6 End stage renal disease; R40.20 Unspecified coma; I47.2 Ventricular tachycardia; I46.9 Cardiac arrest, cause unspecified; D68.8 Other specified coagulation defects; E87.2 Acidosis; I12.0 Hypertensive chronic kidney disease with stage 5 chronic kidney disease or end stage renal disease; E11.22 Type 2 diabetes mellitus with diabetic chronic kidney disease; E11.319 Type 2 diabetes mellitus with unspecified diabetic retinopathy without macular edema; E11.51 Type 2 diabetes mellitus with diabetic peripheral angiopathy without gangrene; A48.8 Other specified bacterial diseases; E87.5 Hyperkalemia; I49.01 Ventricular fibrillation; E87.6 Hypokalemia; I95.9 Hypotension, unspecified; E78.00 Pure hypercholesterolemia, unspecified; D64.9 Anemia, unspecified; Z99.2 Dependence on renal dialysis; Z87.39 Personal history of other diseases of the musculoskeletal system and connective tissue; Z89.511 Acquired absence of right leg below knee; Z89.512 Acquired absence of left leg below knee; Z89.021 Acquired absence of right finger(s); Z89.022 Acquired absence of left finger(s); Z79.4 Long term (current) use of insulin; Z79.84 Long term (current) use of oral hypoglycemic drugs; Z79.82 Long term (current) use of aspirin; Z79.01 Long term (current) use of anticoagulants; Z87.01 Personal history of pneumonia (recurrent)